=== PATIENT | male | born 1950 | race Caucasian/White ===

== ENCOUNTER 2017-06-09 18:23 | Emergency (ER) | payer OTHER ==
--- OUTSIDE RECORDS SUMMARY | 2017-06-09 18:25 | XMS REPORT | Clinical Summary ---
:1950 Demographics Address [address] [place] [address] Home Phone Mobile Phone Preferred Language Irish Marital Status Unknown Pentecostal Affiliation Unknown Race White Ethnic Group Not or Author Organization [facility] Address [address] [place] [address] Phone Support Name Relationship Address Phone Mami Pena [address] [place] [address] Unavailable Naturalson 11 [address] [place] [address] Care Team Providers Name Role Phone Unavailable Primary Care Provider Unavailable Allergies No Known Allergies Current Medications Prescription Sig. Disp. Refills Start End Status Date Date albuterol (PROVENTIL) Take 2.5 mg by Active 2.5 mg/0.5 mL Nebu nebulization 4 nebulizer solution (four) times daily. aspirin 325 MG tablet Take 325 mg by Active mouth daily. ipratropium (ATROVENT) Take 500 mcg by Active 0.02 % nebulizer nebulization solution every 6 (six) hours. metoprolol (LOPRESSOR) Take 25 mg by Active 25 MG tablet mouth 2 (two) times daily. omeprazole (PRILOSEC) 20 Take 20 mg by Active MG capsule mouth daily. clopidogrel (PLAVIX) 75 Take 75 mg by Active mg tablet mouth daily. budesonide-formoterol Inhale 2 puffs Active (SYMBICORT) 160-4.5 by mouth via mcg/actuation inhaler inhaler 2 (two) times daily. acetaminophen-codeine Take 1 tablet by Active (TYLENOL #3) 300-30 mg mouth every 4 per tablet (four) hours as needed for Pain. metoprolol (LOPRESSOR) Take 25 mg by Active 25 MG tabletIndications: mouth 2 (two) hypertension times daily. pantoprazole (PROTONIX) Take 40 mg by Active 40 MG tabletIndications: mouth daily. gastroesophageal reflux disease aspirin 81 MG EC Take 81 mg by Active tabletIndications: mouth daily. myocardial infarction prevention clopidogrel (PLAVIX) 75 Take 75 mg by Active mg tabletIndications: mouth daily. since pacemaker 5 years ago atorvastatin (LIPITOR) Take 1 tablet 90 tablet 0 03/14/19 Active 80 MG tablet (80 mg total) by 18 019 mouth nightly. atorvastatin (LIPITOR) Take 1 tablet 30 tablet 0 01/14/20 40 MG tablet (40 mg total) by 16 017 mouth nightly. atorvastatin (LIPITOR) Take 40 mg by Discontinued 40 MG tabletIndications: mouth daily. 018 hypercholesterolemia cephalexin (KEFLEX) 500 Take 500 mg by Discontinued MG capsuleIndications: mouth 3 (three) 018 left lung pneumonia times daily. codeine-guaifenesin Take 5 mLs by Discontinued (GUAIFENESIN AC) 10-100 mouth every 4 018 mg/5 mL (four) hours as liquidIndications: needed for Cough, left pneumonia Cough. Active Problems Problem Noted Date Essential hypertension 03/12/2017 Received tissue plasminogen activator (t-PA) less than 24 hours prior to 03/12 arrival Acute ischemic stroke ([facility]) 03/11/2017 HLD (hyperlipidemia) 01/17/2016 Peripheral vascular disease ([facility]) 01/14/2016 Postoperative anemia 01/14/2016 Coronary artery disease involving capitan grande band coronary artery 01/10/2016 PAD (peripheral artery disease) ([facility]) 01/10/2016 HTN (hypertension) 01/10/2016 Iliac artery stenosis, bilateral ([facility]) 01/10/2016 Unstable angina ([facility]) 01/10/2016 COPD (chronic obstructive pulmonary disease) ([facility]) 01/10/2016 Tobacco abuse 01/10/2016 ACS (acute coronary syndrome) ([facility]) 01/10/2016 Encounters Date Type Specialty Care Team Description 03/11/2017 - Hospital Encounter General Internal Corbin Garcia Acute ischemic 03/14/2017 Medicine MD Doug stroke Stephanie Lugo ([facility]);Received MD Addie tissue plasminogen activator (t-PA) less than 24 hours prior to arrival;Essential hypertension;Periph eral vascular disease ([facility]);Tobacco abuse;Tobacco abuse counseling after 06/08/2016 Social History Tobacco Use Types Packs/Day Years Used Date Current Every Day Smoker Cigarettes 0.5 50 Smokeless Tobacco: Never Used Tobacco Cessation: Ready to Quit: No; Counseling Given: No Comments: 5-6 cigarettes a day Alcohol Use Drinks/Week oz/Week Comments No Sex Assigned at Date Recorded Not on file Last Filed Vital Signs Vital Sign Reading Time Taken Blood Pressure 119/65 03/14/2017 7:15 AM [employer]CHOOL LUNCH MANAGER Pulse 60 03/14/2017 7:15 AM SCHOOL LUNCH MANAGER Temperature 35.8 C (96.4 F) 03/14/2017 7:15 AM SCHOOL LUNCH MANAGER Respiratory Rate 17 03/14/2017 7:15 AM SCHOOL LUNCH MANAGER Oxygen Saturation 96% 03/14/2017 7:15 AM SCHOOL LUNCH MANAGER Inhaled Oxygen Concentration - - Weight 70.4 kg (155 lb 3.3 oz) 03/11/2017 11:00 PM SCHOOL LUNCH MANAGER Height 172.7 cm (5' 8") 03/11/2017 11:00 PM SCHOOL LUNCH MANAGER Body Mass Index 23.6 03/11/2017 11:00 PM SCHOOL LUNCH MANAGER Plan of Treatment Health Maintenance Due Date Last Done Comments INFLUENZA VACCINE 12/06/2016 Implants Implanted Type Area Produce Department Manager Device Expiration Model / Identifier Date Serial / Lot Grft Eptfe-Heparin Rng [id number] - [id number]/Pa N/A: MARIELENA PRESCOTT & 09/01/2019 [id number] / Implanted: Qty: 1 on 01/13/2016 by Oniel Smith MD [facility] Arterial ASSC: MED [facility] [id number] / Results ARRYTHMIA IMPLANT REPORT - SCAN (03/16/2017 11:41 AM)RHYTHM STRIP - SCAN (2017 11:41 AM)Only the most recent of3 resultswithin the time period is included.PERMANENT LAB REPORT - SCAN (03/15/2017 11:00 AM)CARDIAC CATH REPORT - SCAN (03/15/2017 11:00 AM)VASCULAR DIAGRAM -SCAN (03/15/2017 11:00 AM)Only the most recent of2 resultswithin the time period is included.CBC with platelet count + automated diff (03/14/2017 4:53 AM)Only the most recent of4 resultswithin the time period is included. Component Value Ref Range WBC 5.9 3.5 - 10.5 K/L RBC 4.25 (L) 4.63 - 6.08 M/L Hemoglobin 12.3 (L) 13.7 - 17.5 GM/DL Hematocrit 37.8 (L) 40.1 - 51.0 % MCV 88.9 79.0 - 92.2 fL MCH 28.9 25.7 - 32.2 pg MCHC 32.5 32.3 - 36.5 GM/DL RDW 15.9 (H) 11.6 - 14.4 % Platelets 173 150 - 450 K/CU MM MPV 11.5 9.4 - 12.4 fL nRBC 0 0 - 0 /100 WBC % Neutros 48 % % Lymphs 34 % % Monos 12 % % Eos 4 % % Baso 2 % # Neutros 2.85 1.78 - 5.38 K/L # Lymphs 2.02 1.32 - 3.57 K/L # Monos 0.68 0.30 - 0.82 K/L # Eos 0.25 0.04 - 0.54 K/L # Baso 0.09 (H) 0.01 - 0.08 K/L Immature Granulocytes-Relative 1 0 - 1 % Specimen Performing Laboratory Blood [address] [address] CBC with platelet count + automated diff (03/14/2017 4:53 AM)Only the most recent of4 resultswithin the time period is included. Specimen Performing Laboratory Blood Narrative The following orders were created for panel order CBC with platelet count + automated diff. Procedure Abnormality Status --------- ------ CBC with platelet count ...[[id number]]AbnormalFinal result Please view results for these tests on the individual orders. Basic Metabolic Panel (03/14/2017 4:53 AM)Only the most recent of3 resultswithin the time period is included. Component Value Ref Range Sodium 136 136 - 145 meq/L Potassium 4.0 3.5 - 5.1 meq/L Chloride 106 98 - 107 meq/L CO2 23 22 - 29 meq/L BUN 15 7 - 21 mg/dL Creatinine 0.92 0.57 - 1.25 mg/dL Glucose 92 70 - 105 mg/dL Calcium 8.7 8.4 - 10.2 mg/dL EGFR 82Comment: ESTIMATED GFR IS NOT ACCURATE mL/min/1.73 sq m CREATININE CLEARANCE IN PREDICTING GLOMERULAR FILTRATION RATE. ESTIMATED GFR IS NOT APPLICABLE FOR DIALYSIS PATIENTS. Specimen Performing Laboratory Blood [facility] [address] [address] ECHOCARDIOGRAM REPORT - SCAN (03/12/2017 4:57 PM)CT brain without IV contrast ( 03/12/2017 3:29 PM) Specimen Performing Laboratory GE RIS Narrative FINAL REPORT CT head without contrast 03/12/2017 3:29 PM CLINICAL HISTORY: Stroke TECHNIQUE: Axial noncontrast CT images through the head were obtained. This examination was performed according to our departmental dose optimization program, which includes automated exposure control, adjustment of the mA and/or kV according to patient size, and/or use of iterated reconstruction technique. COMPARISON: None available FINDINGS: There is no hemorrhage, extra-axial collection, mass, hydrocephalus, or midline shift. There is a tiny infarct in the left caudate nucleus, with rare microvascular ischemia in the supratentorial white matter. There is atherosclerotic calcification of the intracranial arterial vasculature. There is generalized parenchymal volume loss. The visualized paranasal sinuses and mastoid air cells are well aerated. There are postsurgical changes in the left nasal bone and maxilla. The skull is otherwise intact. IMPRESSION: No intracranial hemorrhage or mass effect. Age-indeterminate left caudate nucleus infarct. Signed: Wilbert Paez MD Report Verified Date/Time:03/12/2017 15:31:17 Reading Location: [address] Neuro Reading Room Procedure Note Interface, External Ris In - 03/12/2017 3:33 PM SCHOOL LUNCH MANAGER FINAL REPORT CT head without contrast 03/12/2017 3:29 PM CLINICAL HISTORY: Stroke TECHNIQUE: Axial noncontrast CT images through the head were obtained. This examination was performed according to our departmental dose optimization program, which includes automated exposure control, adjustment of the mA and/or kV according to patient size, and/or use of iterated reconstruction technique. COMPARISON: None available FINDINGS: There is no hemorrhage, extra-axial collection, mass, hydrocephalus, or midline shift. There is a tiny infarct in the left caudate nucleus, with rare microvascular ischemia in the supratentorial white matter. There is atherosclerotic calcification of the intracranial arterial vasculature. There is generalized parenchymal volume loss. The visualized paranasal sinuses and mastoid air cells are well aerated. There are postsurgical changes in the left nasal bone and maxilla. The skull is otherwise intact. IMPRESSION: No intracranial hemorrhage or mass effect. Age-indeterminate left caudate nucleus infarct. Signed: Wilbert Paez MD Report Verified Date/Time: 03/12/2017 15:31:17 Reading Location: [facility] [id number] Neuro Reading Room Troponin I (03/12/2017 2:28 PM)Only the most recent of3 resultswithin the time period is included. Component Value Ref Range Troponin I 0.02 0.00 - 0.03 ng/mL Specimen Performing Laboratory Blood - Arm, [place] [address] Narrative Troponin I (TnI) levels must be interpreted in the context of the presenting symptoms and the clinical findings. Elevated TnI levels indicate myocardial damage, but are not specific for ischemic heart disease. Elevated TnI levels are seen in patients with other cardiac conditions (including myocarditis and congestive heart failure), and slight TnI elevations occur in patients with other conditions, including sepsis, renal failure, acidosis, acute neurological disease, and persistent tachyarrhythmia. ECG 12 lead (03/12/2017 2:16 PM) Specimen Performing Laboratory [place] MUSE Narrative Ventricular Rate 60 BPM Atrial Rate 60 BPM P-R Interval 138 ms QRS Duration 74 ms Q-T Interval 414 ms QTC Calculation(Bazett) 414 ms P Independence -18 degrees R Independence 9 degrees T Independence 68 degrees Electronic atrial pacemaker ST abnormality, possible digitalis effect Abnormal ECG No previous ECGs available Confirmed by Jasmeet HAIDER MICHAEL ([id number]) on 03/13/2017 9:39:18 AM Procedure Note Interface, External Ris In - 03/13/2017 9:39 AM SCHOOL LUNCH MANAGER Ventricular Rate 60 BPM Atrial Rate 60 BPM P-R Interval 138 ms QRS Duration 74 ms Q-T Interval 414 ms QTC Calculation(Bazett) 414 ms P Independence -18 degrees R Independence 9 degrees T Independence 68 degrees Electronic atrial pacemaker ST abnormality, possible digitalis effect Abnormal ECG No previous ECGs available Confirmed by Jasmeet HAIDER MICHAEL ([id number]) on 03/13/2017 9:39:18 AM 2D Echo W/Doppler(CW/PW/Color) (03/12/2017 10:53 AM) Component Value Ref Range Ejection Fraction Specimen Performing Laboratory [facility] ECHO HEART[facility] DENISE CPACS Narrative Transthoracic Echocardiography Report (TTE) Demographics Patient Name Tyron PENA of Study 03/12/2017 [id number] GenderMale Visit Number [id number] Chuck [id number] Number [id number] Number Date of Birth1950 Referring Physician Corbin Garcia Age67 year(s) [employer] Kristopher Muniz MD Physician Fellow CHLOE Melton Procedure Type of Study TTE procedure:2DECHO W DOPPLER(CW/PW/COLOR) Indications:Stroke . Clinical History COPD,CVA,DEMENTIA,ENLARGED PROSTATE,HERNIA CEREBRI,HTN,AZ,SMOKING Height: 68 inches Weight: 70.31 kg (155 lbs) BSA: 1.83 m^2 BMI: 23.57 kg/m^2 HR: 60 bpm BP: 120/60 mmHg Summary 1. Normal LV size and function. LVEF is > 60%. 2. Diastology: Grade 1 diastolic dysfunction noted. 3. Normal RV size and function 4. No significant valvular heart disease 5. Mild TR 6. No pericardial effusion is seen. Previous Study No previous study available for comparison. Signature Findings Left Ventricle LV endocardium is adequately visualized with IV ultrasound enhancing agent. Global LV systolic function normal . LVEF by Shukla's method of disk assessment is normal (>60%) . Grade 1 diastolic dysfunction. All of the LV segments contract normally . No evidence of LV hypertrophy. The left ventricle is chamber size (by vol index) is normal (male - LVED vol - 34-74ml/m2). Left AtriumLA size is normal . Right VentricleThe right ventricular chamber size and systolic function are within normal limits. Right Atrium RA size is probably normal based on available views. RA pacing wire is visualized . Atrial SeptumIV saline contrast injection was negative for a PFO (patent foramen ovale) at rest and post Valsalva . Aortic Valve Mild AoV cusp thickening. There is no aortic stenosis. There is no aortic regurgitation. Mitral Valve Mild MV leaflet thickening. Trace mitral regurgitation. Tricuspid ValveTV structure is normal. Mild tricuspid regurgitation. Pulmonic Valve PV is not well visualized; function appears normal by Doppler visualized. AortaAortic root size (SInus of Valsalva diameter) is normal . PericardiumNo significant pericardial effusion is visualized. IVC/SVC/PA/PV/PleuralThe inferior vena cava size is normal . The estimated RA pressure by IVC dynamics 0-5mmHg . Chambers/Structures Left Atrium LA Volume: 33.93 ml LA Vol. Index: 19 ml/m^2 Left Ventricle LVIDd: 4.05 cm LV Septum Diastolic: 0.92 cm LV PW Diastolic: 1.08 cm LVEDV Shukla's:73.79 ml LVESV Shukla's:27.15 ml LVEF Shukla's: 63.8 %LVEDVI: 40 ml/m^2 LVESVI: 15 ml/m^2 LVOT Diameter: 1.79 cm Doppler/Quantitative Measurements Mitral Valve MV Peak E-Wave: 0.64 m/s MV Peak A-Wave: 0.77 m/s E/A Ratio: 0.83 Peak Gradient: 1.64 mmHg Decelerat ion Time: 168.1 msec MV Riccardo. Peak: Tissue Doppler E' Septal Velocity: 0.07 m/s E/E': 6.47 E' Lateral Velocity: 0.1 m/s Aortic Valve Peak Velocity: 1.46 m/s Mean Velocity: 0.97 m/s Peak Gradient: 8.55 mmHgMean Gradient: 4.3 mmHg AV Area (continuity): 2.08 cm^2 AV VTI: 27.69 cm AV DVI: 0.83 LVOT Peak Velocity: 1.32 m/s Peak Gradient: 6.95 mmHg Mean Velocity: 0.7 m/sMean Gradient: 2.48 mmHg LVOT Diameter: 1.79 cmLVOT VTI: 22.9 cm LVOT Area: 2.52 cm^2LVOT SV:57.6 ml LVOT CO: 3.46 l/min LVOT CI: 1.89 l/min/m^2 Tricuspid Valve TV Mean Gradient: 22.61 mmHg TR Mean Velocity: 2.27 m/s Procedure Note Interface, External Ris In - 03/12/2017 4:15 PM SCHOOL LUNCH MANAGER Transthoracic Echocardiography Report (TTE) Demographics Patient Name MAMI PENA Date of Study 03/12/2017 Gender Male Visit Number [id number] Race Room Number [id number] Number Date of 1950 Referring Physician Corbin Garcia Age 67 year(s) [employer] Kristopher Engle Interpreting Prosper Muniz MD Physician Fellow CHLOE Melton Procedure Type of Study TTE procedure:2DECHO W DOPPLER(CW/PW/COLOR) Indications:Stroke . Clinical History COPD,CVA,DEMENTIA,ENLARGED PROSTATE,HERNIA CEREBRI,HTN,AZ,SMOKING Height: 68 inches Weight: 70.31 kg (155 lbs) BSA: 1.83 m^2 BMI: 23.57 kg/m^2 HR: 60 bpm BP: 120/60 mmHg Summary 1. Normal LV size and function. LVEF is > 60%. 2. Diastology: Grade 1 diastolic dysfunction noted. 3. Normal RV size and function 4. No significant valvular heart disease 5. Mild TR 6. No pericardial effusion is seen. Previous Study No previous study available for comparison. Signature Findings Left Ventricle LV endocardium is adequately visualized with IV ultrasound enhancing agent. Global LV systolic function normal . LVEF by Shukla's method of disk assessment is normal (>60%) . Grade 1 diastolic dysfunction. All of the LV segments contract normally . No evidence of LV hypertrophy. The left ventricle is chamber size (by vol index) is normal (male - LVED vol - 34-74ml/m2). Left Atrium LA size is normal . Right Ventricle The right ventricular chamber size and systolic function are within normal limits. Right Atrium RA size is probably normal based on available views. RA pacing wire is visualized . Atrial Septum IV saline contrast injection was negative for a PFO (patent foramen ovale) at rest and post Valsalva . Aortic Valve Mild AoV cusp thickening. There is no aortic stenosis. There is no aortic regurgitation. Mitral Valve Mild MV leaflet thickening. Trace mitral regurgitation. Tricuspid Valve TV structure is normal. Mild tricuspid regurgitation. Pulmonic Valve PV is not well visualized; function appears normal by Doppler visualized. Aorta Aortic root size (SInus of Valsalva diameter) is normal . Pericardium No significant pericardial effusion is visualized. IVC/SVC/PA/PV/Pleural The inferior vena cava size is normal . The estimated RA pressure by IVC dynamics 0-5mmHg . Chambers/Structures Left Atrium LA Volume: 33.93 ml LA Vol. Index: 19 ml/m^2 Left Ventricle LVIDd: 4.05 cm LV Septum Diastolic: 0.92 cm LV PW Diastolic: 1.08 cm LVEDV Shukla's:73.79 ml LVESV Shukla's:27.15 ml LVEF Shukla's: 63.8 % LVEDVI: 40 ml/m^2 LVESVI: 15 ml/m^2 LVOT Diameter: 1.79 cm Doppler/Quantitative Measurements Mitral Valve MV Peak E-Wave: 0.64 m/s MV Peak A-Wave: 0.77 m/s E/A Ratio: 0.83 Peak Gradient: 1.64 mmHg Deceleration Time: 168.1 msec MV Riccardo. Peak: Tissue Doppler E' Septal Velocity: 0.07 m/s E/E': 6.47 E' Lateral Velocity: 0.1 m/s Aortic Valve Peak Velocity: 1.46 m/s Mean Velocity: 0.97 m/s Peak Gradient: 8.55 mmHg Mean Gradient: 4.3 mmHg AV Area (continuity): 2.08 cm^2 AV VTI: 27.69 cm AV DVI: 0.83 LVOT Peak Velocity: 1.32 m/s Peak Gradient: 6.95 mmHg Mean Velocity: 0.7 m/s Mean Gradient: 2.48 mmHg LVOT Diameter: 1.79 cm LVOT VTI: 22.9 cm LVOT Area: 2.52 cm^2 LVOT SV:57.6 ml LVOT CO: 3.46 l/min LVOT CI: 1.89 l/min/m^2 Tricuspid Valve TV Mean Gradient: 22.61 mmHg TR Mean Velocity: 2.27 m/s XR chest 1 view portable / bedside (03/12/2017 9:28 AM) Specimen Performing Laboratory GE RIS Narrative FINAL REPORT Two frontal chest images Discussion: No specific evidence of focal infiltrate or consolidation. Heart size normal. Left chest pacemaker in place. No effusion or pneumothorax. There is however increased density of both lung apices right greater than left, and questionable abnormal density at the lateral right midlung region. These areas are suboptimally depicted with frontal view plain film. Consider follow-up PA and lateral chest imaging. Signed: Acacia Benites MD Report Verified Date/Time:03/12/2017 10:06:57 Reading Location: [facility] Radiology Reading Room Procedure Note Interface, External Ris In - 03/12/2017 10:09 AM SCHOOL LUNCH MANAGER FINAL REPORT Two frontal chest images Discussion: No specific evidence of focal infiltrate or consolidation. Heart size normal. Left chest pacemaker in place. No effusion or pneumothorax. There is however increased density of both lung apices right greater than left, and questionable abnormal density at the lateral right midlung region. These areas are suboptimally depicted with frontal view plain film. Consider follow-up PA and lateral chest imaging. Signed: Acacia Benites MD Report Verified Date/Time: 03/12/2017 10:06:57 Reading Location: [facility] Radiology Reading Room PHERAL VASCULAR REPORT - SCAN (03/12/2017 8:20 AM)Homocysteine - Fasting ( 03/12/2017 8:13 AM) Component Value Ref Range Homocysteine 11.8 5.1 - 15.4 umol/L Specimen Performing Laboratory Blood - [place], [address] [address] Narrative Fasting Hemoglobin A1c - Fasting (03/12/2017 8:13 AM) Component Value Ref Range Hemoglobin A1C 5.6 4.3 - 6.1 % Specimen Performing Laboratory Blood - [place], [address] [address] Narrative Fasting Creatine Kinase (CK), Total and MB (03/12/2017 8:13 AM)Only the most recent of2 resultswithin the time period is included. Component Value Ref Range Total CK 59 29 - 200 U/L CK-MB 1.0 0.0 - 6.6 ng/mL MB Relative Index 1.7 % Specimen Performing Laboratory Blood - [place], [address] [address] Narrative CK-MB Reference Range: <6.7Normal 6.7-10.0Borderline >10.0 Abnormal Fasting Fasting Fasting lipid panel (03/12/2017 8:13 AM) Component Value Ref Range Triglycerides 151 mg/dL Cholesterol 147 mg/dL HDL 29 mg/dL LDL Calculated 88 mg/dL Specimen Performing Laboratory Blood - [place], [address] [address] Narrative Triglyceride Reference Range: Low Risk <150 [id number] High Risk 200-499 Very High Risk>=500 Cholesterol Reference Range: Low Risk <200 [id number] High Risk>240 HDL Cholesterol Reference Range: Low Risk >=60 High Risk <40 LDL Cholesterol Reference Range: Optimal<100 Near [id number] Grghdxravh679-110 Qecz642-415 Very High >=190 Fasting Carotid doppler bilateral (03/12/2017 6:19 AM) Component Value Ref Range Ejection Fraction Specimen Performing Laboratory [facility] Impressions Right Impression 1. There is <50% diameter reduction (approximately 35% by 2-D measurement) in the internal carotid artery with a peak velocity of 116/34 cm/sec and heterogeneous plaque. 2. There is >50% stenosis in the external carotid artery with a velocity of 237/48cm/sec. 3. The common carotid artery is within normal limits. 4. The vertebral artery flow is antegrade . Left Impression 1. There is <50% diameter reduction (approximately 28% by 2-D measurement) in the internal carotid artery with a peak velocity of 115/27 cm/sec and heterogeneous plaque. 2. There is >50% stenosis in the external carotid artery with a velocity of 430/62cm/sec. 3. There is non occluding plaque in the common carotid artery. 4. The vertebral artery flow is antegrade . Conclusions Signature Velocities are measured in cm/s ; Diameters are measured in cm Carotid Right Measurements +---------+----+----+-----+ + + + !Location !PSV !EDV !Angle!%Stenosis 2D !%Stenosis Doppler !Tortuosity ! +---------+----+----+-----+ + + + !Prox CCA !95!21.1!60 ! !! ! +---------+----+----+-----+ + + + !Dist CCA !76.2!20.5!60 ! !! ! +---------+----+----+-----+ + + + !Prox ICA !116 !34.4!60 !35%!<50%! ! +---------+----+----+-----+ + + + !Dist ICA !87.4!29.5!60 ! !! ! +---------+----+----+-----+ + + + !Prox ECA !237 !48.7!60 ! !! ! +---------+----+----+-----+ + + + !Vertebral!54!24.6!60 ! !! ! +---------+----+----+-----+ + + + - There is antegrade vertebral flow noted on the right side. - Additional Measurements:ICAPSV/CCAPSV 1.52.ICAEDV/CCAEDV 1.63. Carotid Left Measurements +---------+----+----+-----+ + + + !Location !PSV !EDV !Angle!%Stenosis 2D !%Stenosis Doppler !Tortuosity ! +---------+----+----+-----+ + + + !Prox CCA !128 !39.3!60 ! !! ! +---------+----+----+-----+ + + + !Dist CCA !85.4!25.5!60 ! !! ! +---------+----+----+-----+ + + + !Prox ICA !115 !27.5!60 !28%!<50%! ! +---------+----+----+-----+ + + + !Dist ICA !97.2!31.4!60 ! !! ! +---------+----+----+-----+ + + + !Prox ECA !430 !62.9!60 ! !! ! +---------+----+----+-----+ + + + !Vertebral!84.5!27.5!60 ! !! ! +---------+----+----+-----+ + + + - There is antegrade vertebral flow noted on the left side. - Additional Measurements:ICAPSV/CCAPSV 1.35.ICAEDV/CCAEDV 0.8. Narrative [facility] - Carotid Duplex Study Demographics Patient Name JEAN,Date of Study2017 RADHA [id number] Age67 Visit Number [id number] Gender Male Accession Number [id number] Date of Birth1950 [facility] Room [id number] Physician Bella PlazaInterpreting Elaine Higginbotham MD, VI Procedure Type of Study: Cerebral: Carotid, CAROTID DOPPLER, BILATERAL. Indications for Study:Stroke. Blood Pressure:Right arm 116/68 mmHg.Left arm 123/73 mmHg. Patient Status:Routine. Study Location:Portable. Technical Quality:Adequate visualization. Risk Factors History of Disease + + +--------+ !Diagnosis !Date!Comments! + + +--------+ !History/Risk Factors: !03/12/2017!Stroke! + + +--------+ Procedure Note Interface, External Ris In - 03/12/2017 7:32 AM [employer] [facility] - Carotid Duplex Study Demographics Patient Name JEAN, Date of Study 03/12/2017 RADHA Age 67 Visit Number [id number] Gender Male Accession Number [id number] Date of 1950 [facility] Room Number 7518 Physician [facility] [place] Interpreting Cristobal Perez [place] Physician , RPTUNG Procedure Type of Study: Cerebral: Carotid, CAROTID DOPPLER, BILATERAL. Indications for Study:Stroke. Blood Pressure:Right arm 116/68 mmHg.Left arm 123/73 mmHg. Patient Status:Routine. Study Location:Portable. Technical Quality:Adequate visualization. Risk Factors History of Disease + + +--------+ !Diagnosis !Date !Comments! + + +--------+ !History/Risk Factors: !03/12/2017!Stroke ! + + +--------+ Impressions Right Impression 1. There is <50% diameter reduction (approximately 35% by 2-D measurement) in the internal carotid artery with a peak velocity of 116/34 cm/sec and heterogeneous plaque. 2. There is >50% stenosis in the external carotid artery with a velocity of 237/48cm/sec. 3. The common carotid artery is within normal limits. 4. The vertebral artery flow is antegrade . Left Impression 1. There is <50% diameter reduction (approximately 28% by 2-D measurement) in the internal carotid artery with a peak velocity of 115/27 cm/sec and heterogeneous plaque. 2. There is >50% stenosis in the external carotid artery with a velocity of 430/62cm/sec. 3. There is non occluding plaque in the common carotid artery. 4. The vertebral artery flow is antegrade . Conclusions Signature Velocities are measured in cm/s ; Diameters are measured in cm Carotid Right Measurements +---------+----+----+-----+ + + + !Location !PSV !EDV !Angle!%Stenosis 2D !%Stenosis Doppler !Tortuosity ! +---------+----+----+-----+ + + + !Prox CCA !95 !21.1!60 ! ! ! ! +---------+----+----+-----+ + + + !Dist CCA !76.2!20.5!60 ! ! ! ! +---------+----+----+-----+ + + + !Prox ICA !116 !34.4!60 !35% !<50% ! ! +---------+----+----+-----+ + + + !Dist ICA !87.4!29.5!60 ! ! ! ! +---------+----+----+-----+ + + + !Prox ECA !237 !48.7!60 ! ! ! ! +---------+----+----+-----+ + + + !Vertebral!54 !24.6!60 ! ! ! ! +---------+----+----+-----+ + + + - There is antegrade vertebral flow noted on the right side. - Additional Measurements:ICAPSV/CCAPSV 1.52.ICAEDV/CCAEDV 1.63. Carotid Left Measurements +---------+----+----+-----+ + + + !Location !PSV !EDV !Angle!%Stenosis 2D !%Stenosis Doppler !Tortuosity ! +---------+----+----+-----+ + + + !Prox CCA !128 !39.3!60 ! ! ! ! +---------+----+----+-----+ + + + !Dist CCA !85.4!25.5!60 ! ! ! ! +---------+----+----+-----+ + + + !Prox ICA !115 !27.5!60 !28% !<50% ! ! +---------+----+----+-----+ + + + !Dist ICA !97.2!31.4!60 ! ! ! ! +---------+----+----+-----+ + + + !Prox ECA !430 !62.9!60 ! ! ! ! +---------+----+----+-----+ + + + !Vertebral!84.5!27.5!60 ! ! ! ! +---------+----+----+-----+ + + + - There is antegrade vertebral flow noted on the left side. - Additional Measurements:ICAPSV/CCAPSV 1.35.ICAEDV/CCAEDV 0.8. Vitamin B12 and Folate (03/11/2017 11:41 PM) Component Value Ref Range Vitamin B12 1008 (H) 213 - 816 pg/mL Folate 8.4 >=7.0 ng/mL Specimen Performing Laboratory Blood - Arm, [address] [address] TSH/Free T4 If Indicated (03/11/2017 11:41 PM) Component Value Ref Range TSH 2.01 0.35 - 4.94 uIU/mL Specimen Performing Laboratory Blood - Arm, [address] [address] Prothrombin time/INR (03/11/2017 11:41 PM) Component Value Ref Range Protime 17.2 (H) 11.7 - 14.7 seconds INR 1.4 <=5.9 Specimen Performing Laboratory Blood - Arm, [address] [address] Narrative RECOMMENDED COUMADIN/WARFARIN INR THERAPY RANGES STANDARD DOSE: 2.0 - 3.0 Includes: PROPHYLAXIS for venous thrombosis, systemic embolization; TREATMENT for venous thrombosis and/or pulmonary embolus. HIGH RISK: Target INR is 2.5-3.5 for patients with mechanical heart valves. after 06/08/2016
--- OUTSIDE RECORDS SUMMARY | 2017-06-09 18:26 | XMS REPORT ---
:1950 Demographics Address [address] [place] [address] Preferred Language Unknown Marital Status Unknown Jainism Affiliation Unknown Race Unknown Additional Race(s) Unavailable Ethnic Group Unknown [facility] Address [address] [place] [address] [place] [id number] Care Team Providers Name Role Phone GENO STERLING Unavailable Unavailable Problems This patient has no known problems. Allergies, Adverse Reactions, Alerts This patient has no known allergies or adverse reactions. Medications This patient has no known medications. Results Test Description Test Time Test Comments Text Results Atomic Results Result Comments BASIC METABOLIC PANEL 2017-03-14 07:51:00 Test Item Value Reference Range Comments SODIUM (BEAKER) (test 136 meq/L 136-145 yajp=908) POTASSIUM (BEAKER) (test 4.0 meq/L 3.5-5.1 rcri=448) CHLORIDE (BEAKER) (test 106 meq/L 98-107 ymtb=515) CO2 (BEAKER) (test ruzj=269) 23 meq/L 22-29 BLOOD UREA NITROGEN (BEAKER) 15 mg/dL 7-21 (test yrvx=976) CREATININE (BEAKER) (test 0.92 mg/dL 0.57-1.25 orqv=845) GLUCOSE RANDOM (BEAKER) 92 mg/dL 70-105 (test yxwr=935) CALCIUM (BEAKER) (test 8.7 mg/dL 8.4-10.2 mfho=736) EGFR (BEAKER) (test 82 mL/min/1.73 sq m ESTIMATED GFR IS NOT moat=0391) ACCURATE CREATININE CLEARANCE IN PREDICTING GLOMERULAR FILTRATION RATE. ESTIMATED GFR IS NOT APPLICABLE FOR DIALYSIS PATIENTS. CBC W/PLT COUNT & AUTO [id number] 05:55:00 Test Item Value Reference Range Comments WHITE BLOOD CELL COUNT (BEAKER) (test ylzg=593) 5.9 K/ L 3.5-10.5 RED BLOOD CELL COUNT (BEAKER) (test thjc=674) 4.25 M/ L 4.63-6.08 HEMOGLOBIN (BEAKER) (test pvfd=820) 12.3 GM/DL 13.7-17.5 HEMATOCRIT (BEAKER) (test vdzp=812) 37.8 % 40.1-51.0 MEAN CORPUSCULAR VOLUME (BEAKER) (test gzfe=884) 88.9 fL 79.0-92.2 MEAN CORPUSCULAR HEMOGLOBIN (BEAKER) (test 28.9 pg 25.7-32.2 xgrf=847) MEAN CORPUSCULAR HEMOGLOBIN CONC (BEAKER) (test 32.5 GM/DL 32.3-36.5 yhss=827) RED CELL DISTRIBUTION WIDTH (BEAKER) (test 15.9 % 11.6-14.4 nkix=238) PLATELET COUNT (BEAKER) (test ahbu=048) 173 K/CU MM 150-450 MEAN PLATELET VOLUME (BEAKER) (test rqib=907) 11.5 fL 9.4-12.4 NUCLEATED RED BLOOD CELLS (BEAKER) (test 0 /100 WBC 0-0 xvfo=060) NEUTROPHILS RELATIVE PERCENT (BEAKER) (test 48 % auuv=830) LYMPHOCYTES RELATIVE PERCENT (BEAKER) (test 34 % cdho=464) MONOCYTES RELATIVE PERCENT (BEAKER) (test 12 % wajr=486) EOSINOPHILS RELATIVE PERCENT (BEAKER) (test 4 % dllh=485) BASOPHILS RELATIVE PERCENT (BEAKER) (test 2 % utbw=436) NEUTROPHILS ABSOLUTE COUNT (BEAKER) (test 2.85 K/ L 1.78-5.38 cmqj=445) LYMPHOCYTES ABSOLUTE COUNT (BEAKER) (test 2.02 K/ L 1.32-3.57 lkrb=490) MONOCYTES ABSOLUTE COUNT (BEAKER) (test 0.68 K/ L 0.30-0.82 lyik=309) EOSINOPHILS ABSOLUTE COUNT (BEAKER) (test 0.25 K/ L 0.04-0.54 nekc=988) BASOPHILS ABSOLUTE COUNT (BEAKER) (test 0.09 K/ L 0.01-0.08 cjxw=893) IMMATURE GRANULOCYTES-RELATIVE PERCENT (BEAKER) 1 % 0-1 (test wnrz=2439) CBC W/PLT COUNT & AUTO [id number] 05:15:00 Test Item Value Reference Range Comments WHITE BLOOD CELL COUNT (BEAKER) (test ftpw=018) 5.4 K/ L 3.5-10.5 RED BLOOD CELL COUNT (BEAKER) (test lcjq=411) 4.34 M/ L 4.63-6.08 HEMOGLOBIN (BEAKER) (test vfdc=102) 12.5 GM/DL 13.7-17.5 HEMATOCRIT (BEAKER) (test ezmb=300) 39.0 % 40.1-51.0 MEAN CORPUSCULAR VOLUME (BEAKER) (test rnsa=960) 89.9 fL 79.0-92.2 MEAN CORPUSCULAR HEMOGLOBIN (BEAKER) (test 28.8 pg 25.7-32.2 dinu=703) MEAN CORPUSCULAR HEMOGLOBIN CONC (BEAKER) (test 32.1 GM/DL 32.3-36.5 txcz=382) RED CELL DISTRIBUTION WIDTH (BEAKER) (test 15.9 % 11.6-14.4 sujl=266) PLATELET COUNT (BEAKER) (test rlnl=400) 162 K/CU MM 150-450 MEAN PLATELET VOLUME (BEAKER) (test oqqe=598) 10.6 fL 9.4-12.4 NUCLEATED RED BLOOD CELLS (BEAKER) (test 0 /100 WBC 0-0 nujs=406) NEUTROPHILS RELATIVE PERCENT (BEAKER) (test 52 % qjyz=826) LYMPHOCYTES RELATIVE PERCENT (BEAKER) (test 31 % pgvc=012) MONOCYTES RELATIVE PERCENT (BEAKER) (test 11 % bjfa=698) EOSINOPHILS RELATIVE PERCENT (BEAKER) (test 4 % lopp=355) BASOPHILS RELATIVE PERCENT (BEAKER) (test 2 % jhwf=510) NEUTROPHILS ABSOLUTE COUNT (BEAKER) (test 2.78 K/ L 1.78-5.38 gzfw=040) LYMPHOCYTES ABSOLUTE COUNT (BEAKER) (test 1.69 K/ L 1.32-3.57 ixvx=376) MONOCYTES ABSOLUTE COUNT (BEAKER) (test 0.59 K/ L 0.30-0.82 iwor=431) EOSINOPHILS ABSOLUTE COUNT (BEAKER) (test 0.21 K/ L 0.04-0.54 nhiy=247) BASOPHILS ABSOLUTE COUNT (BEAKER) (test 0.09 K/ L 0.01-0.08 paom=945) IMMATURE GRANULOCYTES-RELATIVE PERCENT (BEAKER) 1 % 0-1 (test apsc=2169) CT, BRAIN, WITHOUT [id number] 15:31:00FINAL REPORT CT head without contrast 03/12/2017 3:29 [...] IMPRESSION: No intracranial hemorrhage or mass effect. Age- indeterminate left caudate nucleus infarct. Signed: Wilbert Paez Verified Date/Time: 03/12/2017 15:31:17 Reading Location: [address] Neuro Reading Room TROPONIN [id number] 15:26:00 Test Item Value Reference Range Comments TROPONIN I (KYARA) (test yqrq=758) 0.02 ng/mL 0.00-0.03 Troponin I (TnI) levels must be interpreted [...] failure, acidosis, acute neurological disease, and persistent tachyarrhythmia.HEMOGLOBIN [id number] 12:38:00 Test Item Value Reference Range Comments HEMOGLOBIN A1C (KYARA) (test ljja=312) 5.6 % 4.3-6.1 FastingRAD, CHEST, 1 VIEW, NON [id number] 10:06:00Reason for exam:->rule out pneumoniaShould this be performed at the bedside?->YesFINAL REPORT Two frontal chest images Discussion: No [...] and lateral chest imaging. Signed: Acacia Benites Verified Date/Time: 03/12/2017 10:06:57 Reading Location: [facility] Radiology Reading Room [id number] 09:08:00 Test Item Value Reference Range Comments HOMOCYSTEINE (BEAKER) (test bslx=200) 11.8 umol/L 5.1-15.4 FastingCREATINE KINASE (CK), TOTAL AND [id number] 08:55:00 Test Item Value Reference Range Comments CREATINE KINASE TOTAL (BEAKER) (test wtkp=276) 59 U/L 29-200 CREATINE KINASE-MB (BEAKER) (test lowi=438) 1.0 ng/mL 0.0-6.6 CREATINE KINASE-MB INDEX (BEAKER) (test tdpk=665) 1.7 % CK-MB Reference Range:<6.7 Normal6.7-10.0 Borderline>10.0 AbnormalFastingFastingTROPONIN [id number] 08:55:00 Test Item Value Reference Range Comments TROPONIN I (BEAKER) (test lzwd=992) < ng/mL 0.00-0.03 Troponin I (TnI) levels must be interpreted [...] failure, acidosis, acute neurological disease, and persistent tachyarrhythmia.FastingLIPID [id number] 08:48:00 Test Item Value Reference Range Comments TRIGLYCERIDES (BEAKER) (test wppk=828) 151 mg/dL CHOLESTEROL (BEAKER) (test gsav=570) 147 mg/dL HDL CHOLESTEROL (BEAKER) (test cgzu=876) 29 mg/dL LDL CHOLESTEROL CALCULATED (BEAKER) (test 88 mg/dL pxzk=372) Triglyceride Reference Range: Low Risk <150 Borderline 150- 199 High Risk 200-499 Very High Risk >=500Cholesterol Reference Range: Low Risk <200 Borderline 200-239 High Risk > 240HDL Cholesterol Reference Range: Low Risk >=60 High Risk <40LDL Cholesterol Reference Range: Optimal <100 Near Optimal 100-129 Borderline 130-159 High 160-189 Very High >=190 FastingBASIC METABOLIC [id number] 08:48:00 Test Item Value Reference Range Comments SODIUM (BEAKER) (test 136 meq/L 136-145 zbgs=638) POTASSIUM (BEAKER) (test 4.4 meq/L 3.5-5.1 svpt=541) CHLORIDE (BEAKER) (test 104 meq/L 98-107 xgbr=437) CO2 (BEAKER) (test 25 meq/L 22-29 blez=043) BLOOD UREA NITROGEN 15 mg/dL 7-21 (BEAKER) (test qkqo=119) CREATININE (BEAKER) (test 0.87 mg/dL 0.57-1.25 nnmo=448) GLUCOSE RANDOM (BEAKER) 102 mg/dL 70-105 (test ugrd=961) CALCIUM (BEAKER) (test 8.9 mg/dL 8.4-10.2 yavr=211) EGFR (BEAKER) (test 87 mL/min/1.73 sq m ESTIMATED GFR IS NOT iypt=4763) ACCURATE CREATININE CLEARANCE IN PREDICTING GLOMERULAR FILTRATION RATE. ESTIMATED GFR IS NOT APPLICABLE FOR DIALYSIS PATIENTS. FastingCBC W/PLT COUNT & AUTO [id number] 08:24:00 Test Item Value Reference Range Comments WHITE BLOOD CELL COUNT (BEAKER) (test kmjs=454) 5.7 K/ L 3.5-10.5 RED BLOOD CELL COUNT (BEAKER) (test jxwz=492) 4.23 M/ L 4.63-6.08 HEMOGLOBIN (BEAKER) (test fgdh=431) 12.3 GM/DL 13.7-17.5 HEMATOCRIT (BEAKER) (test vrjv=146) 37.9 % 40.1-51.0 MEAN CORPUSCULAR VOLUME (BEAKER) (test lgpc=561) 89.6 fL 79.0-92.2 MEAN CORPUSCULAR HEMOGLOBIN (BEAKER) (test 29.1 pg 25.7-32.2 ijha=722) MEAN CORPUSCULAR HEMOGLOBIN CONC (BEAKER) (test 32.5 GM/DL 32.3-36.5 rawe=456) RED CELL DISTRIBUTION WIDTH (BEAKER) (test 15.9 % 11.6-14.4 spwn=006) PLATELET COUNT (BEAKER) (test zcvl=980) 156 K/CU MM 150-450 MEAN PLATELET VOLUME (BEAKER) (test kdld=783) 10.2 fL 9.4-12.4 NUCLEATED RED BLOOD CELLS (BEAKER) (test 0 /100 WBC 0-0 klkh=919) NEUTROPHILS RELATIVE PERCENT (BEAKER) (test 47 % rveb=852) LYMPHOCYTES RELATIVE PERCENT (BEAKER) (test 37 % zbhz=578) MONOCYTES RELATIVE PERCENT (BEAKER) (test 12 % xxvo=630) EOSINOPHILS RELATIVE PERCENT (BEAKER) (test 3 % xxat=380) BASOPHILS RELATIVE PERCENT (BEAKER) (test 2 % geto=685) NEUTROPHILS ABSOLUTE COUNT (BEAKER) (test 2.66 K/ L 1.78-5.38 ipke=609) LYMPHOCYTES ABSOLUTE COUNT (BEAKER) (test 2.09 K/ L 1.32-3.57 hhvu=317) MONOCYTES ABSOLUTE COUNT (BEAKER) (test 0.70 K/ L 0.30-0.82 ejvb=532) EOSINOPHILS ABSOLUTE COUNT (BEAKER) (test 0.15 K/ L 0.04-0.54 nvwd=412) BASOPHILS ABSOLUTE COUNT (BEAKER) (test 0.09 K/ L 0.01-0.08 stpa=070) IMMATURE GRANULOCYTES-RELATIVE PERCENT (BEAKER) 1 % 0-1 (test raye=0960) TSH/FREE T4 IF [id number] 03:38:00 Test Item Value Reference Range Comments THYROID STIMULATING HORMONE (BEAKER) (test 2.01 uIU/mL 0.35-4.94 hwhs=297) VITAMIN B12 AND [id number] 03:38:00 Test Item Value Reference Range Comments VITAMIN B12 (BEAKER) (test ufuq=411) 1008 pg/mL 213-816 FOLATE (BEAKER) (test gumb=759) 8.4 ng/mL >=7.0 CREATINE KINASE (CK), TOTAL AND [id number] 01:03:00 Test Item Value Reference Range Comments CREATINE KINASE TOTAL (BEAKER) (test guwo=050) 66 U/L 29-200 CREATINE KINASE-MB (BEAKER) (test qkxr=142) 1.4 ng/mL 0.0-6.6 CREATINE KINASE-MB INDEX (BEAKER) (test nxsr=488) 2.1 % CK-MB Reference Range:<6.7 Normal6.7-10.0 Borderline>10.0 AbnormalTROPONIN [id number] 01:03:00 Test Item Value Reference Range Comments TROPONIN I (BEAKER) (test zomj=254) 0.02 ng/mL 0.00-0.03 Troponin I (TnI) levels must be interpreted [...] failure, acidosis, acute neurological disease, and persistent tachyarrhythmia.BASIC METABOLIC [id number] 00:56:00 Test Item Value Reference Range Comments SODIUM (BEAKER) (test 136 meq/L 136-145 ekvy=038) POTASSIUM (BEAKER) (test 3.9 meq/L 3.5-5.1 qmht=575) CHLORIDE (BEAKER) (test 104 meq/L 98-107 fxsb=897) CO2 (BEAKER) (test 24 meq/L 22-29 lgno=089) BLOOD UREA NITROGEN 14 mg/dL 7-21 (BEAKER) (test tbum=987) CREATININE (BEAKER) (test 0.87 mg/dL 0.57-1.25 amlp=254) GLUCOSE RANDOM (BEAKER) 104 mg/dL 70-105 (test gzyw=302) CALCIUM (BEAKER) (test 9.2 mg/dL 8.4-10.2 vizx=200) EGFR (BEAKER) (test 87 mL/min/1.73 sq m ESTIMATED GFR IS NOT bjpz=5004) ACCURATE CREATININE CLEARANCE IN PREDICTING GLOMERULAR FILTRATION RATE. ESTIMATED GFR IS NOT APPLICABLE FOR DIALYSIS PATIENTS. PROTHROMBIN TIME/[id number] 00:27:00 Test Item Value Reference Range Comments PROTIME (BEAKER) (test wpse=558) 17.2 seconds 11.7-14.7 INR (BEAKER) (test uqby=620) 1.4 <=5.9 RECOMMENDED COUMADIN/WARFARIN INR THERAPY RANGESSTANDARD DOSE: 2.0 - 3.0 Includes: PROPHYLAXIS forvenous thrombosis, systemic embolization; TREATMENT for venous thrombosis and/or pulmonary embolus.HIGH RISK: Target INR is 2.5-3.5 for patients with mechanical heart valves.CBC W/PLT COUNT & AUTO [id number] 00:01:00 Test Item Value Reference Range Comments WHITE BLOOD CELL COUNT (BEAKER) (test qush=364) 8.2 K/ L 3.5-10.5 RED BLOOD CELL COUNT (BEAKER) (test cgho=664) 4.57 M/ L 4.63-6.08 HEMOGLOBIN (BEAKER) (test brgl=483) 13.2 GM/DL 13.7-17.5 HEMATOCRIT (BEAKER) (test ezni=369) 40.5 % 40.1-51.0 MEAN CORPUSCULAR VOLUME (BEAKER) (test hifw=103) 88.6 fL 79.0-92.2 MEAN CORPUSCULAR HEMOGLOBIN (BEAKER) (test 28.9 pg 25.7-32.2 oztz=768) MEAN CORPUSCULAR HEMOGLOBIN CONC (BEAKER) (test 32.6 GM/DL 32.3-36.5 vycz=431) RED CELL DISTRIBUTION WIDTH (BEAKER) (test 15.9 % 11.6-14.4 snbr=452) PLATELET COUNT (BEAKER) (test xnqf=942) 198 K/CU MM 150-450 MEAN PLATELET VOLUME (BEAKER) (test khpa=556) 11.2 fL 9.4-12.4 NUCLEATED RED BLOOD CELLS (BEAKER) (test 0 /100 WBC 0-0 qkls=130) NEUTROPHILS RELATIVE PERCENT (BEAKER) (test 57 % fdok=715) LYMPHOCYTES RELATIVE PERCENT (BEAKER) (test 28 % pvmm=004) MONOCYTES RELATIVE PERCENT (BEAKER) (test 10 % gjws=216) EOSINOPHILS RELATIVE PERCENT (BEAKER) (test 3 % qmoj=007) BASOPHILS RELATIVE PERCENT (BEAKER) (test 1 % babv=142) NEUTROPHILS ABSOLUTE COUNT (BEAKER) (test 4.66 K/ L 1.78-5.38 ftkb=070) LYMPHOCYTES ABSOLUTE COUNT (BEAKER) (test 2.29 K/ L 1.32-3.57 qket=944) MONOCYTES ABSOLUTE COUNT (BEAKER) (test 0.81 K/ L 0.30-0.82 sxdv=477) EOSINOPHILS ABSOLUTE COUNT (BEAKER) (test 0.25 K/ L 0.04-0.54 saix=691) BASOPHILS ABSOLUTE COUNT (BEAKER) (test 0.10 K/ L 0.01-0.08 jryo=588) IMMATURE GRANULOCYTES-RELATIVE PERCENT (BEAKER) 1 % 0-1 (test llqd=8882)
[2017-06-09 19:53] LABS: Absolute Monocytes 0.7 K/uL (0.1-1.3); RBC Red Blood Cell Count 4.47 M/uL (4.33-5.43)
[2017-06-09 19:55] LABS: Protime INR 1.05
[2017-06-09 20:02] LABS: Absolute Neutrophil 4.7 K/uL (1.8-8.0); Basophils % 1.3 % (0-1.3); Lymphocytes % 26.5 % (15.3-44.8); MCH 29.6 pg (27.0-35.0); MCV 89.4 fL (80-100); MPV 9.7 fL (7.6-11.3); Monocytes % 9.2 % (3.3-12.3)
[2017-06-09 20:04] LABS: Bicarbonate 26 mEq/L (21-31); Glucose Level 92 mg/dL (65-120); Potassium 4.3 mEq/L (3.6-5.0); Sodium Level 135 mEq/L (135-145)
--- NOTE | 2017-06-09 20:04 | RAD REPORT ---
EXAM DESCRIPTION: CT - Head Brain Wo Cont - 06/09/2017 7:40 pm CLINICAL HISTORY: Headache COMPARISON: May 2017 TECHNIQUE: Computed axial tomography of the head was obtained. IV contrast was not requested. All CT scans are performed using dose optimization technique as appropriate and may include automated exposure control or mA/KV adjustment according to patient size. FINDINGS: An intracranial bleed is not seen . The ventricles are normal in caliber. No extra-axial fluid collection is noted. Fluid within the sinuses/ mastoids is not seen. IMPRESSION: No acute intracranial abnormality is seen. If patient's symptoms persist MRI of the bra in would be recommended.
--- NOTE | 2017-06-09 20:05 | RAD REPORT ---
EXAM DESCRIPTION: [place] Single View06/09/2017 7:51 pm CLINICAL HISTORY: cough COMPARISON: 2010 FINDINGS: The lungs appear clear of acute infiltrate. The heart is normal size. Pacemaker leads are in place. IMPRESSION: No acute abnormalities displayed
[2017-06-09 20:12] LABS: ALT/SGPT 13 IU/L (10-60); AST/SGOT 23 IU/L (10-42); Albumin 4.3 g/dL (3.2-5.5); Alkaline Phosphatase 123 IU/L (42-121); BUN Blood Urea Nitrogen 12 mg/dL (6-20); Bilirubin Direct 0.2 mg/dL (0-0.2); Bilirubin Total 0.5 mg/dL (0.3-1.2); Creatine Phosphokinase 92 IU/L (22-269); Glomerular Filtration Rate > 90 mL/min (=/>90); Magnesium 1.9 mg/dL (1.8-2.5); Protein, Total 7.9 g/dL (6.0-8.3)
[2017-06-09 20:14] LABS: CKMB Creatine Kinase MB 1.5 ng/ml (0.3-4.0)
--- NOTE | 2017-06-09 20:23 | RAD REPORT ---
EXAM DESCRIPTION: VAS - Lower Extremity Artery Uni Ltd - 06/09/2017 8:07 pm CLINICAL HISTORY: Leg pain COMPARISON: None FINDINGS: The waveform of the right common femoral artery is triphasic. The waveforms of the right superficial femoral, right popliteal, right posterior tibial and right doc salis pedis arteries are biphasic. A high-grade arterial stenosis is not visualized. 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
[2017-06-09] MEDS ORDERED: NA CHLORIDE 0.9% 1,000 ML ONE (20:30)
[2017-06-09] MEDS ORDERED: FOLIC ACID 5 MG/ML VIAL ONE (20:30)
--- NOTE | 2017-06-09 20:51 | EDPHYS ---
Physician Documentation [facility] Name: Maurice Morfin Age: 67 yrs Sex: Male : 1950 Arrival Date: 06/09/2017 Time: 18:27 Bed 4 Private MD: Yung Thomas ED Physician Hector Torrez HPI: 06/09 19:27 This 67 yrs old Male presents to ER via Ambulatory with complaints of rn headache, right leg pain. 19:28 The patient presents with pain, weakness. The complaints affect the right leg. Onset: rn The symptoms/episode began/occurred today. Severity of symptoms: At their worst the symptoms were moderate, in the emergency department the symptoms are unchanged. The patient has experienced similar episodes in the past. Reports headache that began this morning, a few hours ago began with right leg pain and weakness, pain more than weakness, was sitting and hurt to stand up, reports has had pain in that leg before, told had bad circulation but "nothing could be done about it". No trauma, states has been doing fine recently. Had stroke within last 3 months and got TPA, never fully recovered, has some baseline weakness on right side of body.. Historical: - Allergies: 18:56 NKDA; lk1 - PMHx: 18:56 NM; Hypertension; Hernia; enlarged prostate; Dementia; CVA; COPD; Cholelithiasis; lk1 - PSHx: 18:56 PACEMAKER; lk1 - Immunization history:: Adult Immunizations up to date. - Social history:: Smoking status: unknown. - Family history:: not pertinent. - Hospitalizations: : No recent hospitalization is reported. ROS: 19:28 Constitutional: Negative for fever, chills, and weight loss, Eyes: Negative for injury, rn pain, redness, and discharge, Neck: Negative for injury, pain, and swelling, Cardiovascular: Negative for chest pain, palpitations, and edema, Respiratory: Negative for shortness of breath, cough, wheezing, and pleuritic chest pain, Abdomen/GI: Negative for abdominal pain, nausea, vomiting, diarrhea, and constipation, Back: Negative for injury and pain, MS/Extremity: Negative for injury and deformity, Skin: Negative for injury, rash, and discoloration, Neuro: Negative for seizure. Exam: 19:28 Constitutional: This is a well developed, well nourished patient who is awake, alert, rn and in no acute distress. Head/Face: Normocephalic, atraumatic. Eyes: Pupils equal round and reactive to light, extra-ocular motions intact. Lids and lashes normal. Conjunctiva and sclera are non-icteric and not injected. Cornea within normal limits. Periorbital areas with no swelling, redness, or edema. Neck: Trachea midline, no thyromegaly or masses palpated, and no cervical lymphadenopathy. Supple, full range of motion without nuchal rigidity, or vertebral point tenderness. No Meningismus. Cardiovascular: Regular rate and rhythm with a normal S1 and S2. No gallops, murmurs, or rubs. Normal PMI, no JVD. No pulse deficits. Respiratory: Lungs have equal breath sounds bilaterally, clear to auscultation and percussion. No rales, rhonchi or wheezes noted. No increased work of breathing, no retractions or nasal flaring. Abdomen/GI: Soft, non-tender, with normal bowel sounds. No distension or tympany. No guarding or rebound. No evidence of tenderness throughout. MS/ Extremity: Diminished pulses bilateral lower ext Neuro: Awake and alert, GCS 15, oriented to person, place, time, and situation. Cranial nerves II-XII grossly intact. Motor strength 4+/5 RUE/RLE, 5/5 LUE/LLE, no drift on either side. Sensory grossly intact. Vital Signs: 18:56 BP 167 / 74; Pulse 59; Resp 16; Temp 97.9(O); Pulse Ox 100% on R/A; Weight 70.31 kg lk1 (R); Height 5 ft. 9 in. (175.26 cm) (R); Pain 9/10; 19:45 BP 126 / 84; Pulse 65; Resp 18 S; Pulse Ox 99% on R/A; Pain 7/10; ea 20:22 BP 156 / 69; Pulse 60; Resp 18 S; Pulse Ox 99% on R/A; ea 20:58 BP 154 / 78; Pulse 70; Resp 18 S; Pulse Ox 100% on R/A; Pain 3/10; ea 18:56 Body Mass Index 22.89 (70.31 kg, 175.26 cm) lk1 MDM: 19:16 Patient medically screened. rn 19:43 ED course: Symptoms seem more due to pain, mild weakness on right side of body although rn some residual weakness from previous stroke. Also, regardless of what ct scan shows, not TPA candidate due to confirmed stroke less than 3 months ago. . 20:48 Differential diagnosis: radiculopathy, arthritis, CVA, TIA, PAD. Data reviewed: vital rn signs, nurses notes, lab test result(s), radiologic studies, CT scan, doppler, plain films, and as a result, I will discharge patient. Counseling: I had a detailed discussion with the patient and/or guardian regarding: the historical points, exam findings, and any diagnostic results supporting the discharge/admit diagnosis, lab results, radiology results, the need for outpatient follow up, to return to the emergency department if symptoms worsen or persist or if there are any questions or concerns that arise at home. Special discussion: I discussed with the patient/guardian in detail that at this point there is no indication for admission to the hospital. It is understood, however, that if the symptoms persist or worsen the patient needs to return immediately for re-evaluation. ED course: Pt has f/u with cardiology, no new findings on w/u, will dc home with anti-inflammatories and pcp/cardiology f/u. . 06/09 19:14 Order name: Basic Metabolic Panel; Complete Time: 20:24 06/09 19:14 Order name: BNP; Complete Time: 20:24 06/09 19:14 Order name: CBC with Diff; Complete Time: 20:42 06/09 19:14 Order name: Ckmb; Complete Time: 20:24 06/09 19:14 Order name: CPK; Complete Time: 20:24 06/09 19:14 Order name: LFT's; Complete Time: 20:24 06/09 19:14 Order name: Magnesium; Complete Time: 20:24 06/09 19:14 Order name: PT-INR; Complete Time: 20:24 06/09 19:14 Order name: Ptt, Activated; Complete Time: 20:24 06/09 19:14 Order name: Troponin (emerg Dept Use Only); Complete Time: 20:24 06/09 19:14 Order name: XRAY Chest (1 view); Complete Time: 20:24 06/09 19:14 Order name: Urine Culture 04 19:14 Order name: CRP; Complete Time: 20:24 [facility] 06/09 19:14 Order name: Sed Rate; Complete Time: 20:42 [facility] 06/09 19:14 Order name: EKG; Complete Time: 19:15 [facility] 06/09 19:14 Order name: Cardiac monitoring; Complete Time: 19:41 [facility] 06/09 19:14 Order name: EKG - Nurse/Tech; Complete Time: 19:41 [facility] 06/09 19:14 Order name: IV Saline Lock; Complete Time: 19:41 [facility] 06/09 19:14 Order name: Labs collected and sent; Complete Time: 19:41 [facility] 06/09 19:14 Order name: O2 Per Protocol; Complete Time: 19:41 [facility] 06/09 19:14 Order name: O2 Sat Monitoring; Complete Time: 19:41 [facility] 06/09 19:14 Order name: Urine Dipstick-Ancillary (obtain specimen); Complete Time: 19:41 [facility] 06/09 19:14 Order name: CT Head Brain wo Cont; Complete Time: 20:24 [facility] 06/09 19:27 Order name: US Lower Extremity (Artery [employer]); Complete Time: 20:24 rn Administered Medications: 20:15 Drug: NS 0.9% 1000 ml Route: IV; Rate: 1 bolus; Site: left hand; ea 21:09 Follow up: Response: No adverse reaction; IV Status: Completed infusion ea 20:16 Drug: foLIC Acid 1 mg Route: IVPB; Site: left hand; ea 20:58 Follow up: Response: No adverse reaction; IV Status: Completed infusion ea Disposition: 06/09/17 20:50 Discharged to Home. Impression: Weakness, Peripheral arterial disease, Osteoarthritis of hip. - Condition is Stable. - Discharge Instructions: Arthritis, Nonspecific, Weakness. - Medication Reconciliation Form, Thank You Letter, Antibiotic Education, Prescription Opioid Use form. - Follow up: Private Physician; When: As needed; Reason: Recheck today's complaints, Re-evaluation by your physician. - Problem is new. - Symptoms have improved. Signatures: Dispatcher [employer] EDCaio Johnson MD MD cha Nieto, Roman, MD MD rn Kluge, Leah RN RN lkJyoti Wong RN RN ea
--- NOTE | 2017-06-09 20:51 | ER ---
Nurse's Notes [facility] Name: Maurice Morfin Age: 67 yrs Sex: Male : 1950 Arrival Date: 06/09/2017 Time: 18:27 Bed 4 Private MD: Yung Thomas Diagnosis: Weakness;Peripheral arterial disease;Osteoarthritis of hip Presentation: 06/09 18:45 Presenting complaint: Patient states: "I hurt on my right side from the waist all the lk1 way down. I have had a bad headache on the right all day. I had a stroke back in March.". Presenting complaint:. Transition of care: patient was not received from another setting of care. 18:45 Method Of Arrival: Ambulatory lk1 18:57 Onset of symptoms was June 09, 2017 at 09:00. Care prior to arrival: None. lk1 18:57 Acuity: WAYLON 3 lk1 Triage Assessment: 18:57 General: Appears in no apparent distress. Behavior is calm, cooperative, appropriate lk1 for age. Pain: Complains of pain in head and right leg. Neuro: Level of Consciousness is awake, alert, obeys commands, Oriented to person, place, time, situation. Stroke Activation: Symptom onset > 6 hours Physician: Stroke Attending; Name: ; Notified At: ; Arrived At: Physician: Chief Stroke Resident; Name: ; Notified At: ; Arrived At: Physician: Stroke Resident; Name: ; Notified At: ; Arrived At: Physician: ED Attending; Name: ; Notified At: ; Arrived At: Physician: ED Resident; Name: ; Notified At: ; Arrived At: Historical: - Allergies: 18:56 NKDA; lk1 - PMHx: 18:56 TN; Hypertension; Hernia; enlarged prostate; Dementia; CVA; COPD; Cholelithiasis; lk1 - PSHx: 18:56 PACEMAKER; lk1 - Immunization history:: Adult Immunizations up to date. - Social history:: Smoking status: unknown. - Family history:: not pertinent. - Hospitalizations: : No recent hospitalization is reported. Screenin:45 Abuse screen: Denies threats or abuse. Nutritional screening: No deficits noted. ea Tuberculosis screening: No symptoms or risk factors identified. Fall Risk None identified. Assessment: 19:10 General: Appears in no apparent distress. Behavior is calm, cooperative, appropriate ea for age. Pain: Complains of pain in right hip Pain radiates to right leg Pain currently is 7 out of 10 on a pain scale. Quality of pain is described as aching, Pain began 1430 today Is continuous. Neuro: Level of Consciousness is awake, alert, obeys commands, Oriented to person, place, time, situation, Telephone Information Clerk are equal bilaterally Moves all extremities. Speech is normal, Facial symmetry appears normal, Pupils are PERRLA, Intact. Cardiovascular: Heart tones present Patient's skin is warm and dry. Respiratory: Airway is patent Respiratory effort is even, unlabored, Respiratory pattern is regular, symmetrical, Breath sounds are clear bilaterally. GI: Abdomen is round non-distended, Bowel sounds present X 4 quads. Abd is soft and non tender. : No signs and/or symptoms were reported regarding the genitourinary system. EENT: No signs and/or symptoms were reported regarding the EENT system. Derm: Skin is pink, warm \\T\\ dry. 20:16 Reassessment: Patient and/or family updated on plan of care and expected duration. Pain ea level reassessed. Patient is alert, oriented x 3, equal unlabored respirations, skin warm/dry/pink. Son at bedside. 21:04 Reassessment: Patient and/or family updated on plan of care and expected duration. Pain ea level reassessed. Patient is alert, oriented x 3, equal unlabored respirations, skin warm/dry/pink. Discharge instructions given to patient and family, both verbalized the understanding of instructions. Vital Signs: 18:56 BP 167 / 74; Pulse 59; Resp 16; Temp 97.9(O); Pulse Ox 100% on R/A; Weight 70.31 kg lk1 (R); Height 5 ft. 9 in. (175.26 cm) (R); Pain 9/10; 19:45 BP 126 / 84; Pulse 65; Resp 18 S; Pulse Ox 99% on R/A; Pain 7/10; ea 20:22 BP 156 / 69; Pulse 60; Resp 18 S; Pulse Ox 99% on R/A; ea 20:58 BP 154 / 78; Pulse 70; Resp 18 S; Pulse Ox 100% on R/A; Pain 3/10; ea 18:56 Body Mass Index 22.89 (70.31 kg, 175.26 cm) lk1 ED Course: 18:27 Patient arrived in ED. mr 18:27 Yung Thomas MD is Private Physician. mr 18:57 Triage completed. lk1 18:58 Arm band placed on right wrist. lk1 19:10 Patient has correct armband on for positive identification. Bed in low position. Call ea light in reach. Side rails up X2. 19:13 Jyoti Blackwell, RN is Primary Nurse. ea 19:16 Hector Torrez MD is Attending Physician. rn 19:[address] via stretcher. nj 19:40 CT Head Brain wo Cont In Process Unspecified. EDMS 19:43 Inserted saline lock: 22 gauge in left wrist, using aseptic technique. Blood collected. oe 19:44 X-ray completed. Portable x-ray completed in exam room. Patient tolerated procedure jb2 well. 19:45 XRAY Chest (1 view) In Process Unspecified. EDMS 20:07 US Lower Extremity (Artery [employer]) In Process Unspecified. EDMS 21:00 IV discontinued, intact, bleeding controlled, No redness/swelling at site. Pressure ea dressing applied. 21:06 No provider procedures requiring assistance completed. ea Administered Medications: 20:15 Drug: NS 0.9% 1000 ml Route: IV; Rate: 1 bolus; Site: left hand; ea 21:09 Follow up: Response: No adverse reaction; IV Status: Completed infusion ea 20:16 Drug: foLIC Acid 1 mg Route: IVPB; Site: left hand; ea 20:58 Follow up: Response: No adverse reaction; IV Status: Completed infusion ea Outcome: 20:50 Discharge ordered by . rn 21:06 Discharged to home ambulatory, with family. ea 21:06 Condition: improved 21:06 Discharge instructions given to patient, family, Instructed on discharge instructions, follow up and referral plans. Demonstrated understanding of instructions, follow-up care. 21:09 Patient left the ED. ea Signatures: Dispatcher [employer] EDNJ Amber Colbert Valentín Lee jb2 Hector Torrez MD MD rn Kluge, Leah, RN RN lk1 Kendell Lewis [place] oe Jyoti Blackwell, RN RN ea
[2017-06-09 21:20] VITALS: TEMP 97.9
[2017-06-09 21:22] LABS: Urine Blood NEGATIVE (NEG); Urine Glucose NEGATIVE (NEG); Urine Protein NEGATIVE (NEG); Urine Specific Gravity 1.015 (1.005-1.030)
[2017-06-09 21:24] VITALS: BP 154/78; O2SAT 100
--- NOTE | 2017-06-10 10:09 | EKG ---
Test Date: 2017-06-09 Test Time: 19:26:29 [employer] Laborer: FRANKY MEASUREMENT RESULTS: Intervals: Rate: 60 DE: 186 QRSD: 70 QT: 380 QTc: 380 [place]: P: 42 DE: 186 QRS: 24 T: 68 INTERPRETIVE STATEMENTS: Atrial-paced rhythm Abnormal ECG Compared to ECG 05/16/2017 06:35:31 Ventricular premature complex(es) no longer present Electronically Signed On 06-10-17 10:07:46 CDT by Luis Carlos Quevedo
== END 2017-06-09 21:09 | disposition home or self-care (01) ==
LOC: ER 18:23
DX: I73.9 Peripheral vascular disease, unspecified (principal); M16.11 Unilateral primary osteoarthritis, right hip; I10 Essential (primary) hypertension; Z95.0 Presence of cardiac pacemaker; Z86.73 Personal history of transient ischemic attack (TIA), and cerebral infarction without residual deficits
CPT/HCPCS: 36415; 70450; 71045; 80048; 80076; 81003; 82550; 82553; 83735; 83880; 84484; 85025; 85610; 85652; 85730; 86140; 87086; 87088; 93005; 93926; 96365; 99284; J7030

== ENCOUNTER 2017-06-26 13:28 | Emergency (ER) | payer OTHER ==
--- OUTSIDE RECORDS SUMMARY | 2017-06-26 13:30 | XMS REPORT ---
:1950 Demographics Address [address] [place] [address] Email Address NONE Preferred Language Unknown Marital Status Unknown [employer] Affiliation Unknown Race Unknown Additional Race(s) Unavailable Ethnic Group Unknown Author Organization [facility] Address [address] [place] [address] Care Team Providers Name Role Phone GENO [...] Comments SODIUM (BEAKER) (test 136 meq/L 136-145 cbik=463) POTASSIUM (BEAKER) (test 4.0 meq/L 3.5-5.1 nbug=087) CHLORIDE (BEAKER) (test 106 meq/L 98-107 eeui=497) CO2 (BEAKER) (test czyq=306) 23 meq/L 22-29 BLOOD UREA NITROGEN (BEAKER) 15 mg/dL 7-21 (test ixvd=388) CREATININE (BEAKER) (test 0.92 mg/dL 0.57-1.25 pxnk=103) GLUCOSE RANDOM (BEAKER) 92 mg/dL 70-105 (test aalf=722) CALCIUM (BEAKER) (test 8.7 mg/dL 8.4-10.2 fpdc=161) EGFR (BEAKER) (test 82 mL/min/1.73 sq m ESTIMATED GFR IS NOT trdc=8331) ACCURATE CREATININE CLEARANCE IN PREDICTING GLOMERULAR FILTRATION RATE. ESTIMATED GFR IS NOT APPLICABLE FOR DIALYSIS PATIENTS. CBC W/PLT COUNT & AUTO [id number] 05:55:00 Test Item Value Reference Range Comments WHITE BLOOD CELL COUNT (BEAKER) (test kugo=875) 5.9 K/ L 3.5-10.5 RED BLOOD CELL COUNT (BEAKER) (test hmjn=997) 4.25 M/ L 4.63-6.08 HEMOGLOBIN (BEAKER) (test lswo=657) 12.3 GM/DL 13.7-17.5 HEMATOCRIT (BEAKER) (test rdlo=719) 37.8 % 40.1-51.0 MEAN CORPUSCULAR VOLUME (BEAKER) (test lrnj=315) 88.9 fL 79.0-92.2 MEAN CORPUSCULAR HEMOGLOBIN (BEAKER) (test 28.9 pg 25.7-32.2 zzic=152) MEAN CORPUSCULAR HEMOGLOBIN CONC (BEAKER) (test 32.5 GM/DL 32.3-36.5 cpvg=910) RED CELL DISTRIBUTION WIDTH (BEAKER) (test 15.9 % 11.6-14.4 ugbe=049) PLATELET COUNT (BEAKER) (test cqsn=301) 173 K/CU MM 150-450 MEAN PLATELET VOLUME (BEAKER) (test uglk=681) 11.5 fL 9.4-12.4 NUCLEATED RED BLOOD CELLS (BEAKER) (test 0 /100 WBC 0-0 slrp=771) NEUTROPHILS RELATIVE PERCENT (BEAKER) (test 48 % lwxx=258) LYMPHOCYTES RELATIVE PERCENT (BEAKER) (test 34 % xjrw=592) MONOCYTES RELATIVE PERCENT (BEAKER) (test 12 % euqr=280) EOSINOPHILS RELATIVE PERCENT (BEAKER) (test 4 % nljk=537) BASOPHILS RELATIVE PERCENT (BEAKER) (test 2 % yruh=817) NEUTROPHILS ABSOLUTE COUNT (BEAKER) (test 2.85 K/ L 1.78-5.38 pcfh=763) LYMPHOCYTES ABSOLUTE COUNT (BEAKER) (test 2.02 K/ L 1.32-3.57 ikkm=725) MONOCYTES ABSOLUTE COUNT (BEAKER) (test 0.68 K/ L 0.30-0.82 nerx=877) EOSINOPHILS ABSOLUTE COUNT (BEAKER) (test 0.25 K/ L 0.04-0.54 hvnl=704) BASOPHILS ABSOLUTE COUNT (BEAKER) (test 0.09 K/ L 0.01-0.08 uqjp=045) IMMATURE GRANULOCYTES-RELATIVE PERCENT (BEAKER) 1 % 0-1 (test hqwf=5692) CBC W/PLT COUNT & AUTO [id number] 05:15:00 Test Item Value Reference Range Comments WHITE BLOOD CELL COUNT (BEAKER) (test trfx=184) 5.4 K/ L 3.5-10.5 RED BLOOD CELL COUNT (BEAKER) (test apjw=250) 4.34 M/ L 4.63-6.08 HEMOGLOBIN (BEAKER) (test qsad=402) 12.5 GM/DL 13.7-17.5 HEMATOCRIT (BEAKER) (test rqou=791) 39.0 % 40.1-51.0 MEAN CORPUSCULAR VOLUME (BEAKER) (test pthj=589) 89.9 fL 79.0-92.2 MEAN CORPUSCULAR HEMOGLOBIN (BEAKER) (test 28.8 pg 25.7-32.2 apch=823) MEAN CORPUSCULAR HEMOGLOBIN CONC (BEAKER) (test 32.1 GM/DL 32.3-36.5 mdgs=010) RED CELL DISTRIBUTION WIDTH (BEAKER) (test 15.9 % 11.6-14.4 wnoc=510) PLATELET COUNT (BEAKER) (test zpcu=936) 162 K/CU MM 150-450 MEAN PLATELET VOLUME (BEAKER) (test real=525) 10.6 fL 9.4-12.4 NUCLEATED RED BLOOD CELLS (BEAKER) (test 0 /100 WBC 0-0 oeea=827) NEUTROPHILS RELATIVE PERCENT (BEAKER) (test 52 % ebdj=354) LYMPHOCYTES RELATIVE PERCENT (BEAKER) (test 31 % blmy=844) MONOCYTES RELATIVE PERCENT (BEAKER) (test 11 % hypp=596) EOSINOPHILS RELATIVE PERCENT (BEAKER) (test 4 % dlkb=162) BASOPHILS RELATIVE PERCENT (BEAKER) (test 2 % lmdw=741) NEUTROPHILS ABSOLUTE COUNT (BEAKER) (test 2.78 K/ L 1.78-5.38 jjwt=897) LYMPHOCYTES ABSOLUTE COUNT (BEAKER) (test 1.69 K/ L 1.32-3.57 xqxx=563) MONOCYTES ABSOLUTE COUNT (BEAKER) (test 0.59 K/ L 0.30-0.82 qetu=507) EOSINOPHILS ABSOLUTE COUNT (BEAKER) (test 0.21 K/ L 0.04-0.54 csvm=495) BASOPHILS ABSOLUTE COUNT (BEAKER) (test 0.09 K/ L 0.01-0.08 pdwr=215) IMMATURE GRANULOCYTES-RELATIVE PERCENT (BEAKER) 1 % 0-1 (test yyoc=9424) CT, BRAIN, WITHOUT [id number] 15:31:00FINAL REPORT CT head without contrast 03/12/2017 [...] Paez Verified Date/Time: 03/12/2017 15:31:17 Reading Location: [address] Neuro Reading Room TROPONIN [id number] 15:26:00 Test Item Value Reference Range Comments TROPONIN I (KYARA) (test vbrw=236) 0.02 ng/mL 0.00-0.03 Troponin I (TnI) levels [...] acidosis, acute neurological disease, and persistent tachyarrhythmia.HEMOGLOBIN [id number] 12:38:00 Test Item Value Reference Range Comments HEMOGLOBIN A1C (KYARA) (test tpod=209) 5.6 % 4.3-6.1 FastingRAD, CHEST, 1 VIEW, NON [id number] 10:06:00Reason for exam:->rule out pneumoniaShould this be [...] Benites Verified Date/Time: 03/12/2017 10:06:57 Reading Location: [facility] Radiology Reading Room [id number] 09:08:00 Test Item Value Reference Range Comments HOMOCYSTEINE (BEAKER) (test vksa=504) 11.8 umol/L 5.1-15.4 FastingCREATINE KINASE (CK), TOTAL AND [id number] 08:55:00 Test Item Value Reference Range Comments CREATINE KINASE TOTAL (BEAKER) (test onun=459) 59 U/L 29-200 CREATINE KINASE-MB (BEAKER) (test bakh=180) 1.0 ng/mL 0.0-6.6 CREATINE KINASE-MB INDEX (BEAKER) (test ksnh=637) 1.7 % CK-MB Reference Range:<6.7 Normal6.7-10.0 Borderline>10.0 AbnormalFastingFastingTROPONIN [id number] 08:55:00 Test Item Value Reference Range Comments TROPONIN I (BEAKER) (test tjql=057) < ng/mL 0.00-0.03 Troponin I (TnI) levels [...] acidosis, acute neurological disease, and persistent tachyarrhythmia.FastingLIPID [id number] 08:48:00 Test Item Value Reference Range Comments TRIGLYCERIDES (BEAKER) (test umke=366) 151 mg/dL CHOLESTEROL (BEAKER) (test njwb=334) 147 mg/dL HDL CHOLESTEROL (BEAKER) (test zpma=963) 29 mg/dL LDL CHOLESTEROL CALCULATED (BEAKER) (test 88 mg/dL oiyc=071) Triglyceride Reference Range: Low Risk <150 Borderline 150- 199 High Risk 200-499 Very High Risk >=500Cholesterol Reference Range: Low Risk <200 Borderline 200-239 High Risk > 240HDL Cholesterol Reference Range: Low Risk >=60 High Risk <40LDL Cholesterol Reference Range: Optimal <100 Near Optimal 100-129 Borderline 130-159 High 160-189 Very High >=190 FastingBASIC METABOLIC [id number] 08:48:00 Test Item Value Reference Range Comments SODIUM (BEAKER) (test 136 meq/L 136-145 dysx=500) POTASSIUM (BEAKER) (test 4.4 meq/L 3.5-5.1 cxtq=901) CHLORIDE (BEAKER) (test 104 meq/L 98-107 qncf=465) CO2 (BEAKER) (test 25 meq/L 22-29 dvdt=594) BLOOD UREA NITROGEN 15 mg/dL 7-21 (BEAKER) (test ntet=916) CREATININE (BEAKER) (test 0.87 mg/dL 0.57-1.25 hopo=432) GLUCOSE RANDOM (BEAKER) 102 mg/dL 70-105 (test nqpg=855) CALCIUM (BEAKER) (test 8.9 mg/dL 8.4-10.2 urah=581) EGFR (BEAKER) (test 87 mL/min/1.73 sq m ESTIMATED GFR IS NOT hiio=0382) ACCURATE CREATININE CLEARANCE IN PREDICTING GLOMERULAR FILTRATION RATE. ESTIMATED GFR IS NOT APPLICABLE FOR DIALYSIS PATIENTS. FastingCBC W/PLT COUNT & AUTO [id number] 08:24:00 Test Item Value Reference Range Comments WHITE BLOOD CELL COUNT (BEAKER) (test enef=381) 5.7 K/ L 3.5-10.5 RED BLOOD CELL COUNT (BEAKER) (test ascy=890) 4.23 M/ L 4.63-6.08 HEMOGLOBIN (BEAKER) (test uxry=240) 12.3 GM/DL 13.7-17.5 HEMATOCRIT (BEAKER) (test cohl=966) 37.9 % 40.1-51.0 MEAN CORPUSCULAR VOLUME (BEAKER) (test rrwm=303) 89.6 fL 79.0-92.2 MEAN CORPUSCULAR HEMOGLOBIN (BEAKER) (test 29.1 pg 25.7-32.2 xuqt=182) MEAN CORPUSCULAR HEMOGLOBIN CONC (BEAKER) (test 32.5 GM/DL 32.3-36.5 ernr=296) RED CELL DISTRIBUTION WIDTH (BEAKER) (test 15.9 % 11.6-14.4 uewq=468) PLATELET COUNT (BEAKER) (test dwoh=859) 156 K/CU MM 150-450 MEAN PLATELET VOLUME (BEAKER) (test mkzg=864) 10.2 fL 9.4-12.4 NUCLEATED RED BLOOD CELLS (BEAKER) (test 0 /100 WBC 0-0 kvfm=123) NEUTROPHILS RELATIVE PERCENT (BEAKER) (test 47 % ewkb=357) LYMPHOCYTES RELATIVE PERCENT (BEAKER) (test 37 % nxmv=130) MONOCYTES RELATIVE PERCENT (BEAKER) (test 12 % jonf=059) EOSINOPHILS RELATIVE PERCENT (BEAKER) (test 3 % qlqt=419) BASOPHILS RELATIVE PERCENT (BEAKER) (test 2 % ouzy=303) NEUTROPHILS ABSOLUTE COUNT (BEAKER) (test 2.66 K/ L 1.78-5.38 ufjr=400) LYMPHOCYTES ABSOLUTE COUNT (BEAKER) (test 2.09 K/ L 1.32-3.57 gynt=005) MONOCYTES ABSOLUTE COUNT (BEAKER) (test 0.70 K/ L 0.30-0.82 mynl=853) EOSINOPHILS ABSOLUTE COUNT (BEAKER) (test 0.15 K/ L 0.04-0.54 sfyn=768) BASOPHILS ABSOLUTE COUNT (BEAKER) (test 0.09 K/ L 0.01-0.08 cmab=865) IMMATURE GRANULOCYTES-RELATIVE PERCENT (BEAKER) 1 % 0-1 (test xqwm=6457) TSH/FREE T4 IF [id number] 03:38:00 Test Item Value Reference Range Comments THYROID STIMULATING HORMONE (BEAKER) (test 2.01 uIU/mL 0.35-4.94 smhl=547) VITAMIN B12 AND [id number] 03:38:00 Test Item Value Reference Range Comments VITAMIN B12 (BEAKER) (test mbbv=614) 1008 pg/mL 213-816 FOLATE (BEAKER) (test hmwx=834) 8.4 ng/mL >=7.0 CREATINE KINASE (CK), TOTAL AND [id number] 01:03:00 Test Item Value Reference Range Comments CREATINE KINASE TOTAL (BEAKER) (test tpjc=864) 66 U/L 29-200 CREATINE KINASE-MB (BEAKER) (test gqnf=290) 1.4 ng/mL 0.0-6.6 CREATINE KINASE-MB INDEX (BEAKER) (test rnzf=184) 2.1 % CK-MB Reference Range:<6.7 Normal6.7-10.0 Borderline>10.0 AbnormalTROPONIN [id number] 01:03:00 Test Item Value Reference Range Comments TROPONIN I (BEAKER) (test gwjo=205) 0.02 ng/mL 0.00-0.03 Troponin I (TnI) levels [...] acute neurological disease, and persistent tachyarrhythmia.BASIC METABOLIC [id number] 00:56:00 Test Item Value Reference Range Comments SODIUM (BEAKER) (test 136 meq/L 136-145 egwm=275) POTASSIUM (BEAKER) (test 3.9 meq/L 3.5-5.1 edzy=008) CHLORIDE (BEAKER) (test 104 meq/L 98-107 sstg=927) CO2 (BEAKER) (test 24 meq/L 22-29 cjvw=301) BLOOD UREA NITROGEN 14 mg/dL 7-21 (BEAKER) (test iqlx=380) CREATININE (BEAKER) (test 0.87 mg/dL 0.57-1.25 umfx=473) GLUCOSE RANDOM (BEAKER) 104 mg/dL 70-105 (test iagv=370) CALCIUM (BEAKER) (test 9.2 mg/dL 8.4-10.2 yigb=059) EGFR (BEAKER) (test 87 mL/min/1.73 sq m ESTIMATED GFR IS NOT mocp=8826) ACCURATE CREATININE CLEARANCE IN PREDICTING GLOMERULAR FILTRATION RATE. ESTIMATED GFR IS NOT APPLICABLE FOR DIALYSIS PATIENTS. PROTHROMBIN TIME/[id number] 00:27:00 Test Item Value Reference Range Comments PROTIME (BEAKER) (test hubr=626) 17.2 seconds 11.7-14.7 INR (BEAKER) (test geyx=785) 1.4 <=5.9 RECOMMENDED COUMADIN/WARFARIN INR THERAPY RANGESSTANDARD DOSE: 2.0 - 3.0 Includes: PROPHYLAXIS forvenous thrombosis, systemic embolization; TREATMENT for venous thrombosis and/or pulmonary embolus.HIGH RISK: Target INR is 2.5-3.5 for patients with mechanical heart valves.CBC W/PLT COUNT & AUTO [id number] 00:01:00 Test Item Value Reference Range Comments WHITE BLOOD CELL COUNT (BEAKER) (test bkrs=140) 8.2 K/ L 3.5-10.5 RED BLOOD CELL COUNT (BEAKER) (test jfvt=012) 4.57 M/ L 4.63-6.08 HEMOGLOBIN (BEAKER) (test syjb=388) 13.2 GM/DL 13.7-17.5 HEMATOCRIT (BEAKER) (test khls=369) 40.5 % 40.1-51.0 MEAN CORPUSCULAR VOLUME (BEAKER) (test orks=776) 88.6 fL 79.0-92.2 MEAN CORPUSCULAR HEMOGLOBIN (BEAKER) (test 28.9 pg 25.7-32.2 bozh=716) MEAN CORPUSCULAR HEMOGLOBIN CONC (BEAKER) (test 32.6 GM/DL 32.3-36.5 ewec=324) RED CELL DISTRIBUTION WIDTH (BEAKER) (test 15.9 % 11.6-14.4 qdan=641) PLATELET COUNT (BEAKER) (test cton=007) 198 K/CU MM 150-450 MEAN PLATELET VOLUME (BEAKER) (test nhoj=875) 11.2 fL 9.4-12.4 NUCLEATED RED BLOOD CELLS (BEAKER) (test 0 /100 WBC 0-0 qray=833) NEUTROPHILS RELATIVE PERCENT (BEAKER) (test 57 % lvlx=474) LYMPHOCYTES RELATIVE PERCENT (BEAKER) (test 28 % swfg=649) MONOCYTES RELATIVE PERCENT (BEAKER) (test 10 % ucln=724) EOSINOPHILS RELATIVE PERCENT (BEAKER) (test 3 % wpri=090) BASOPHILS RELATIVE PERCENT (BEAKER) (test 1 % cryc=323) NEUTROPHILS ABSOLUTE COUNT (BEAKER) (test 4.66 K/ L 1.78-5.38 jxds=663) LYMPHOCYTES ABSOLUTE COUNT (BEAKER) (test 2.29 K/ L 1.32-3.57 xawz=235) MONOCYTES ABSOLUTE COUNT (BEAKER) (test 0.81 K/ L 0.30-0.82 vppq=232) EOSINOPHILS ABSOLUTE COUNT (BEAKER) (test 0.25 K/ L 0.04-0.54 zucu=356) BASOPHILS ABSOLUTE COUNT (BEAKER) (test 0.10 K/ L 0.01-0.08 wtzv=513) IMMATURE GRANULOCYTES-RELATIVE PERCENT (BEAKER) 1 % 0-1 (test bzmo=0991)
--- OUTSIDE RECORDS SUMMARY | 2017-06-26 13:30 | XMS REPORT | Clinical Summary ---
:1950 Demographics Address [address] [place] [address] Home Phone Mobile Phone Preferred Language [place]guill[place] Marital Status Unknown Protestant Affiliation Unknown Race White Ethnic Group Not or Author Organization [facility] Address [address] [place] [address] Phone Support Name Relationship Address Phone Mami Pena [address] [place] [address] Unavailable Naturalson [address] [place] [address] Care Team Providers Name Role Phone Unavailable [...] prior to 03/12 arrival Acute ischemic stroke ([facility]) 03/11/2017 HLD (hyperlipidemia) 01/17/2016 Peripheral vascular disease ([facility]) 01/14/2016 Postoperative anemia 01/14/2016 Coronary artery disease involving navajo coronary artery 01/10/2016 PAD (peripheral artery disease) ([facility]) 01/10/2016 HTN (hypertension) 01/10/2016 Iliac artery stenosis, bilateral ([facility]) 01/10/2016 Unstable angina ([facility]) 01/10/2016 COPD (chronic obstructive pulmonary disease) ([facility]) 01/10/2016 Tobacco abuse 01/10/2016 ACS (acute coronary syndrome) ([facility]) 01/10/2016 Encounters Date Type Specialty Care Team Description 03/11/2017 - Hospital Encounter General Internal Corbin Garcia Acute ischemic 03/14/2017 Medicine MD Doug stroke Stephanie Lugo ([facility]);Received MD Addie tissue plasminogen activator (t-PA) less than 24 hours prior to arrival;Essential hypertension;Periph eral vascular disease ([facility]);Tobacco abuse;Tobacco abuse counseling after 06/25/2016 Social History Tobacco Use Types Packs/Day Years Used Date Current Every Day Smoker Cigarettes 0.5 50 Smokeless Tobacco: Never Used Tobacco Cessation: Ready to Quit: No; Counseling Given: No Comments: 5-6 cigarettes a day Alcohol Use Drinks/Week oz/Week Comments No Sex Assigned at Date Recorded Not on file Last Filed Vital Signs Vital Sign Reading Time Taken Blood Pressure 119/65 03/14/2017 7:15 AM [facility] Pulse 60 03/14/2017 7:15 AM [facility] Temperature 35.8 C (96.4 F) 03/14/2017 7:15 AM [facility] Respiratory Rate 17 03/14/2017 7:15 AM [facility] Oxygen Saturation 96% 03/14/2017 7:15 AM [facility] Inhaled Oxygen Concentration - - Weight 70.4 kg (155 lb 3.3 oz) 03/11/2017 11:00 PM [facility] Height 172.7 cm (5' 8") 03/11/2017 11:00 PM [facility] Body Mass Index 23.6 03/11/2017 11:00 PM [facility] Plan of Treatment Health Maintenance Due Date Last Done Comments INFLUENZA VACCINE 12/06/2017 Implants Implanted Type Area Proof Machine Operator Device Expiration Model / Identifier Date Serial / Lot Grft Eptfe-Heparin Rng [id number] - [id number] Graft/Pa N/A: MARIELENA PRESCOTT & 09/01/2019 [id number] / Implanted: Qty: 1 on 01/13/2016 by Oniel Smith MD [facility] Arterial ASSC: [facility] [id number] / Results ARRYTHMIA IMPLANT REPORT - SCAN [...] - 1 % Specimen Performing Laboratory Blood [address] [address] CBC with platelet count + automated diff (03/14/2017 4:53 AM)Only the most recent of4 resultswithin the time period is included. Specimen Performing Laboratory Blood Narrative The following orders were created for panel order CBC with platelet count + automated diff. Procedure Abnormality Status --------- ------ CBC with platelet count ...[[id number]]AbnormalFinal result Please view results for these tests [...] DIALYSIS PATIENTS. Specimen Performing Laboratory Blood [facility] [address] [address] ECHOCARDIOGRAM REPORT - SCAN (03/12/2017 4:57 PM)CT [...] MD Report Verified Date/Time:03/12/2017 15:31:17 Reading Location: [address] Neuro Reading Room Procedure Note Interface, External Ris In - 03/12/2017 3:33 PM [facility] FINAL REPORT CT head without contrast 03/12/2017 [...] Report Verified Date/Time: 03/12/2017 15:31:17 Reading Location: [facility] C013V Neuro Reading Room Troponin I (03/12/2017 2:28 PM)Only the most recent of3 resultswithin the time period is included. Component Value Ref Range Troponin I 0.02 0.00 - 0.03 ng/mL Specimen Performing Laboratory Blood - [address], [place] [address] Narrative Troponin I (TnI) levels must be [...] lead (03/12/2017 2:16 PM) Specimen Performing Laboratory [facility] MUSE Narrative Ventricular Rate 60 BPM Atrial Rate 60 BPM P-R Interval 138 ms QRS Duration 74 ms Q-T Interval 414 ms QTC Calculation(Bazett) 414 ms P [place] -18 degrees R [place] 9 degrees T [place] 68 degrees Electronic atrial pacemaker ST abnormality, possible digitalis effect Abnormal ECG No previous ECGs available Confirmed by Jasmeet HAIDER MICHAEL ([id number]) on 03/13/2017 9:39:18 AM Procedure Note Interface, External Ris In - 03/13/2017 9:39 AM [facility] Ventricular Rate 60 BPM Atrial Rate 60 BPM P-R Interval 138 ms QRS Duration 74 ms Q-T Interval 414 ms QTC Calculation(Bazett) 414 ms P [place] -18 degrees R [place] 9 degrees T [place] 68 degrees Electronic atrial pacemaker ST abnormality, possible digitalis effect Abnormal ECG No previous ECGs available Confirmed by Jasmeet HAIDER MICHAEL ([id number]) on 03/13/2017 9:39:18 AM 2D Echo W/Doppler(CW/PW/Color) (03/12/2017 10:53 AM) Component Value Ref Range Ejection Fraction Specimen Performing Laboratory [facility] ECHO HEART[facility] DENISE CPACS Narrative Transthoracic Echocardiography Report (TTE) Demographics Patient Name Tyron PENA of Study 03/12/2017 [id number] GenderMale Visit Number [id number] Chuck [id number] Number [id number] Number Date of Birth1950 Referring Physician Corbin Garcia Age67 year(s) Envelope Cutter Kristopher Muniz MD Physician Fellow CHLOE Melton Procedure Type of Study TTE procedure:2DECHO W DOPPLER(CW/PW/COLOR) Indications:Stroke . Clinical History COPD,CVA,DEMENTIA,ENLARGED PROSTATE,HERNIA CEREBRI,HTN,HI,SMOKING Height: 68 inches Weight: 70.31 kg (155 [...] External Ris In - 03/12/2017 4:15 PM [facility] Transthoracic Echocardiography Report (TTE) Demographics Patient Name MAMI PENA Date of Study 03/12/2017 Gender Male Visit Number [id number] Race Room Number 7518 Number Date of 1950 Referring Physician Corbin Garcia Age 67 year(s) Envelope Cutter Kristopher Engle Interpreting Prosper Muniz MD Physician Fellow CHLOE Melton Procedure Type of Study TTE procedure:2DECHO W DOPPLER(CW/PW/COLOR) Indications:Stroke . Clinical History COPD,CVA,DEMENTIA,ENLARGED PROSTATE,HERNIA CEREBRI,HTN,HI,SMOKING Height: 68 inches Weight: 70.31 kg (155 [...] MD Report Verified Date/Time:03/12/2017 10:06:57 Reading Location: [facility] Radiology Reading Room Procedure Note Interface, External Ris In - 03/12/2017 10:09 AM [facility] FINAL REPORT Two frontal chest images Discussion: [...] Report Verified Date/Time: 03/12/2017 10:06:57 Reading Location: [facility] Radiology Reading Room PHERAL VASCULAR REPORT - SCAN (03/12/2017 8:20 AM)Homocysteine - Fasting ( 03/12/2017 8:13 AM) Component Value Ref Range Homocysteine 11.8 5.1 - 15.4 umol/L Specimen Performing Laboratory Blood - [place], [address] [address] Narrative Fasting Hemoglobin A1c - Fasting (03/12/2017 8:13 AM) Component Value Ref Range Hemoglobin A1C 5.6 4.3 - 6.1 % Specimen Performing Laboratory Blood - [place], [address] [address] Narrative Fasting Creatine Kinase (CK), Total and MB (03/12/2017 8:13 AM)Only the most recent of2 resultswithin the time period is included. Component Value Ref Range Total CK 59 29 - 200 U/L CK-MB 1.0 0.0 - 6.6 ng/mL MB Relative Index 1.7 % Specimen Performing Laboratory Blood - [place], [address] [address] Narrative CK-MB Reference Range: <6.7Normal 6.7-10.0Borderline >10.0 Abnormal Fasting Fasting Fasting lipid panel (03/12/2017 8:13 AM) Component Value Ref Range Triglycerides 151 mg/dL Cholesterol 147 mg/dL HDL 29 mg/dL LDL Calculated 88 mg/dL Specimen Performing Laboratory Blood - [place], [address] [address] Narrative Triglyceride Reference Range: Low Risk <150 Chhrtfjkgh925-683 High Risk 200-499 Very High Risk>=500 Cholesterol Reference Range: Low Risk <200 Cbgxfbdile810-105 High Risk>240 HDL Cholesterol Reference Range: Low Risk >=60 High Risk <40 LDL Cholesterol Reference Range: Optimal<100 Near Iydvgiw124-978 Vtxaqoihll552-860 Sdbn439-497 Very High >=190 Fasting Carotid doppler bilateral (03/12/2017 6:19 AM) Component Value Ref Range Ejection Fraction Specimen Performing Laboratory [facility] ECHO [facility]ART[facility] Imp[facility] Right Impression 1. There is <50% [...] Demographics Patient Name JEAN,Date of Study2017 RADHA [id number] Age67 Visit Number [id number] Gender Male Accession Number [id number] Date of Birth1950 [facility] Room [id number] Physician Bella PlazaInterpreting Elaine Higginbotham MD, VI Procedure Type of Study: Cerebral: Carotid, CAROTID DOPPLER, BILATERAL. Indications for Study:Stroke. Blood Pressure:Right arm 116/68 mmHg.Left arm 123/73 mmHg. Patient Status:Routine. Study Location:Portable. Technical Quality:Adequate visualization. Risk Factors History of Disease + + +--------+ !Diagnosis !Date!Comments! + + +--------+ !History/Risk Factors: !03/12/2017!Stroke! + + +--------+ Procedure Note Interface, External Ris In - 03/12/2017 7:32 AM [facility] - Carotid Duplex Study Demographics Patient Name JEAN, Date of Study 03/12/2017 RADHA Age 67 Visit Number [id number] Gender Male Accession Number [id number] Date of 1950 [facility] Room Number 7518 Physician Envelope Cutter Vangie Plaza Interpreting Cristobal Perez Hazel [...] ng/mL Specimen Performing Laboratory Blood - [place], [address] [address] TSH/Free T4 If Indicated (03/11/2017 11:41 PM) Component Value Ref Range TSH 2.01 0.35 - 4.94 uIU/mL Specimen Performing Laboratory Blood - Arm, [address] [address] Prothrombin time/INR (03/11/2017 11:41 PM) Component Value Ref Range Protime 17.2 (H) 11.7 - 14.7 seconds INR 1.4 <=5.9 Specimen Performing Laboratory Blood - Arm, [address] [address] Narrative RECOMMENDED COUMADIN/WARFARIN INR THERAPY RANGES STANDARD DOSE: 2.0 - 3.0 Includes: PROPHYLAXIS for venous thrombosis, systemic embolization; TREATMENT for venous thrombosis and/or pulmonary embolus. HIGH RISK: Target INR is 2.5-3.5 for patients with mechanical heart valves. after 06/25/2016
--- NOTE | 2017-06-26 14:18 | EDPHYS ---
Physician Documentation [facility] Name: Maurice Morfin Age: 67 yrs Sex: Male : 1950 Arrival Date: 06/26/2017 Time: 13:29 Bed 24 Private MD: Yung Thomas ED Physician Richi Castellon HPI: 06/26 14:06 This 67 yrs old Male presents to ER via Wheelchair with complaints of Back ps1 Pain, Leg Pain. 14:06 The patient presents with pain that is acute, with no known mechanism of injury. The ps1 symptoms are located in the low back. Onset: The symptoms/episode began/occurred yesterday. right leg to foot. Associated signs and symptoms: The patient has no apparent associated signs or symptoms, Pertinent negatives: abdominal pain, fever, numbness, tingling, urinary retention, weakness. feels like spasm in back.. Historical: - Allergies: 13:33 NKDA; la1 - PMHx: 13:33 Cholelithiasis; COPD; CVA; Dementia; enlarged prostate; Hernia; Hypertension; PR; la1 - PSHx: 14:27 PACEMAKER; kr2 - Immunization history:: Adult Immunizations up to date. - Social history:: Smoking status: Patient uses tobacco products, smokes one-half pack cigarettes per day. ROS: 14:06 Constitutional: Negative for fever, chills, and weight loss, Eyes: Negative for injury, ps1 pain, redness, and discharge, ENT: Negative for injury, pain, and discharge, Cardiovascular: Negative for chest pain, palpitations, and edema, Respiratory: Negative for shortness of breath, cough, wheezing, and pleuritic chest pain, Abdomen/GI: Negative for abdominal pain, nausea, vomiting, diarrhea, and constipation. 14:06 MS/Extremity: Negative for injury and deformity, Skin: Negative for injury, rash, and discoloration, Neuro: Negative for headache, weakness, numbness, tingling, and seizure. 14:06 Back: Positive for decreased range of motion, pain with movement, radiated pain. 14:06 : Negative for urinary symptoms, difficulty urinating, bladder incontinence. Exam: 14:06 Constitutional: This is a well developed, well nourished patient who is awake, alert, ps1 and in no acute distress. Head/Face: Normocephalic, atraumatic. Eyes: Pupils equal round and reactive to light, extra-ocular motions intact. Lids and lashes normal. Conjunctiva and sclera are non-icteric and not injected. ENT: Nares patent. No nasal discharge, no septal abnormalities noted. Tympanic membranes are normal and external auditory canals are clear. Oropharynx with no redness, swelling, or masses, exudates, or evidence of obstruction, uvula midline. Mucous membranes moist. Chest/axilla: Normal chest wall appearance and motion. Nontender with no deformity. No lesions are appreciated. Cardiovascular: Regular rate and rhythm. No gallops, murmurs, or rubs. Normal PMI, no JVD. No pulse deficits. Respiratory: Lungs have equal breath sounds bilaterally, clear to auscultation and percussion. No rales, rhonchi or wheezes noted. No increased work of breathing, no retractions or nasal flaring. Abdomen/GI: Soft, non-tender, with normal bowel sounds. No distension or tympany. No guarding or rebound. No evidence of tenderness throughout. 14:06 Neuro: Awake and alert, GCS 15, oriented to person, place, time, and situation. Cranial nerves II-XII grossly intact. Sensory grossly intact. Psych: Awake, alert, with orientation to person, place and time. Behavior, mood, and affect are within normal limits. 14:06 Back: pain, that is mild, ROM is painful, normal spinal alignment noted, vertebral tenderness, is not appreciated, muscle spasm, is appreciated in the right low back. Vital Signs: 13:33 BP 139 / 82; Pulse 89; Resp 16; Temp 98.0(TE); Pulse Ox 100% on R/A; Weight 70.31 kg; la1 Height 5 ft. 9 in. (175.26 cm); 13:33 Body Mass Index 22.89 (70.31 kg, 175.26 cm) la1 MDM: 14:06 Patient medically screened. ps1 14:06 Data reviewed: vital signs, nurses notes. ED course: pain tolerable and able to ps1 ambulate. exam consistent with sciatica pain. Atraumatic. Not immunocompromised. No saddle signs. No hx of IVDA. Good pulses in feet with normal appearance. Will discharge with follow up with Dr. Quevedo and PCP for further diagnostic testing. Home with anaprox, medrol, and robaxin. . Administered Medications: No medications were administered Disposition: 06/26/17 14:17 Discharged to Home. Impression: Lumbago with sciatica, right side. - Condition is Stable. - Discharge Instructions: Sciatica. - Prescriptions for Anaprox 275 mg Oral Tablet - take 1 tablet by ORAL route every 8 hours As needed; 30 tablet. Robaxin 500 mg Oral Tablet - take 2 tablet by ORAL route every 6 hours As needed; 40 tablet. Medrol (Abner) 4 mg Oral Tablets, Dose Pack - take 1 tablet by ORAL route as directed - follow package instructions; 1 packet. - Medication Reconciliation Form, Thank You Letter, Antibiotic Education, Prescription Opioid Use form. - Follow up: Yung Thomas MD; When: As needed; Reason: Recheck today's complaints, Continuance of care, Re-evaluation by your physician. Follow up: Private Physician; When: as needed with Baradhi for consideration of arterial US/COREY 2/2 history of vasculopathy. ; Reason: Further diagnostic work-up. Follow up: Emergency Department; When: As needed; Reason: Fever > 102 F, Worsening of condition. - Problem is new. - Symptoms are unchanged. Signatures: Steve Johnson, RN RN la1 Allyssa Dickens RN RN kr2 Richi Castellon MD MD ps1
--- NOTE | 2017-06-26 14:18 | ER ---
Nurse's Notes [facility] Name: Maurice Morfin Age: 67 yrs Sex: Male : 1950 Arrival Date: 06/26/2017 Time: 13:29 Bed 24 Private MD: Yung Thomas Diagnosis: Lumbago with sciatica, right side Presentation: 06/26 13:32 Presenting complaint: Patient states: I have pain in my right lower back that radiates la1 down my right leg since this morning, no known injury. Transition of care: patient was not received from another setting of care. Onset of symptoms was June 26, 2017. Initial Sepsis Screen: Does the patient meet any 2 criteria? No. Patient's initial sepsis screen is negative. Does the patient have a suspected source of infection? No. Patient's initial sepsis screen is negative. Care prior to arrival: None. 13:32 Method Of Arrival: Wheelchair la1 13:32 Acuity: WAYLON 4 la1 Historical: - Allergies: 13:33 NKDA; la1 - PMHx: 13:33 Cholelithiasis; COPD; CVA; Dementia; enlarged prostate; Hernia; Hypertension; FL; la1 - PSHx: 14:27 PACEMAKER; kr2 - Immunization history:: Adult Immunizations up to date. - Social history:: Smoking status: Patient uses tobacco products, smokes one-half pack cigarettes per day. Screenin:25 Abuse screen: Denies threats or abuse. Denies injuries from another. Nutritional kr2 screening: No deficits noted. Tuberculosis screening: No symptoms or risk factors identified. Fall Risk Ambulatory Aid- Crutches/Cane/Walker (15 pts). Assessment: 14:23 General: Appears in no apparent distress. comfortable, well groomed, well developed, kr2 well nourished, Behavior is calm, cooperative, appropriate for age. Pain: Complains of pain in right low back Pain radiates to right leg Pain currently is 5 out of 10 on a pain scale. Quality of pain is described as aching, sharp. Neuro: Level of Consciousness is awake, alert, obeys commands, Oriented to person, place, time, situation, Appropriate for age Gait is steady with cane. Intact. Cardiovascular: Capillary refill < 3 seconds in bilateral fingers Patient's skin is warm and dry. Respiratory: Airway is patent Respiratory effort is even, unlabored, Respiratory pattern is regular, symmetrical. GI: Abdomen is round non-distended. Derm: Skin is intact, is healthy with good turgor, Skin is pink, warm \T\ dry. Musculoskeletal: Circulation, motion, and sensation intact. Vital Signs: 13:33 BP 139 / 82; Pulse 89; Resp 16; Temp 98.0(TE); Pulse Ox 100% on R/A; Weight 70.31 kg; la1 Height 5 ft. 9 in. (175.26 cm); 13:33 Body Mass Index 22.89 (70.31 kg, 175.26 cm) la1 ED Course: 13:29 Patient arrived in ED. as 13:29 Yung Thomas MD is Private Physician. as 13:33 Triage completed. la1 13:34 Arm band placed on left wrist. la1 13:43 Richi Castellon MD is Attending Physician. ps1 13:55 Allyssa Dickens RN is Primary Nurse. kr2 14:15 Yung Thomas MD is Referral Physician. ps1 14:15 Patient has correct armband on for positive identification. Bed in low position. Call kr2 light in reach. Door closed. Head of bed elevated. 14:27 No provider procedures requiring assistance completed. Patient did not have IV access kr2 during this emergency room visit. Administered Medications: No medications were administered Outcome: 14:17 Discharge ordered by MD. ps1 14:27 Discharged to home ambulatory, with family. kr2 14:27 Condition: good 14:27 Discharge instructions given to patient, family, Instructed on discharge instructions, follow up and referral plans. medication usage, Demonstrated understanding of instructions, follow-up care, medications, Prescriptions given X 3. 14:28 Patient left the ED. kr2 Signatures: Adri Xiao Lee RN RN la1 Allyssa Dickens, JAVAN RN kr2 Richi Castellon MD MD ps1 Corrections: (The following items were deleted from the chart) 13:33 13:32 Acuity: WAYLON 3 la1 la1
[2017-06-26 14:37] VITALS: BP 139/82; TEMP 98; O2SAT 100
== END 2017-06-26 14:28 | disposition home or self-care (01) ==
LOC: ER 13:28
DX: M54.41 Lumbago with sciatica, right side (principal); F17.210 Nicotine dependence, cigarettes, uncomplicated
CPT/HCPCS: 99282

== ENCOUNTER 2017-07-09 12:57 | Observation (INO) | payer OTHER ==
--- OUTSIDE RECORDS SUMMARY | 2017-07-09 12:59 | XMS REPORT | Clinical Summary ---
:1950 Demographics Address [address] [place] [address] Home Phone Mobile Phone Preferred Language Kyrgyz Marital Status Unknown Yarsanism Affiliation Unknown Race White Ethnic Group Not or Author Organization [facility] Address [address] [place] [address] Phone Support Name Relationship Address Phone Mami Pena [address] [place] [address] Unavailable Naturalson 11 [address] [place] [address] Care Team Providers Name Role Phone Unavailable [...] prior to 03/12 arrival Acute ischemic stroke ([facility]) 03/11/2017 HLD (hyperlipidemia) 01/17/2016 Peripheral vascular disease ([facility]) 01/14/2016 Postoperative anemia 01/14/2016 Coronary artery disease involving [place] coronary artery 01/10/2016 PAD (peripheral artery disease) ([facility]) 01/10/2016 HTN (hypertension) 01/10/2016 Iliac artery stenosis, bilateral ([facility]) 01/10/2016 Unstable angina ([facility]) 01/10/2016 COPD (chronic obstructive pulmonary disease) ([facility]) 01/10/2016 Tobacco abuse 01/10/2016 ACS (acute coronary syndrome) ([facility]) 01/10/2016 Encounters Date Type Specialty Care Team Description 03/11/2017 - Hospital Encounter General Internal Corbin Garcia Acute ischemic 03/14/2017 Medicine MD Doug stroke Stephanie Lugo ([facility]);Received MD Addie tissue plasminogen activator (t-PA) less than 24 hours prior to arrival;Essential hypertension;Periph eral vascular disease ([facility]);Tobacco abuse;Tobacco abuse counseling after 07/08/2016 Social History Tobacco Use Types Packs/Day Years Used Date Current Every Day Smoker Cigarettes 0.5 50 Smokeless Tobacco: Never Used Tobacco Cessation: Ready to Quit: No; Counseling Given: No Comments: 5-6 cigarettes a day Alcohol Use Drinks/Week oz/Week Comments No Sex Assigned at Date Recorded Not on file Last Filed Vital Signs Vital Sign Reading Time Taken Blood Pressure 119/65 03/14/2017 7:15 AM CAREER SERVICES ASSISTANT Pulse 60 03/14/2017 7:15 AM CAREER SERVICES ASSISTANT Temperature 35.8 C (96.4 F) 03/14/2017 7:15 AM CAREER SERVICES ASSISTANT Respiratory Rate 17 03/14/2017 7:15 AM CAREER SERVICES ASSISTANT Oxygen Saturation 96% 03/14/2017 7:15 AM CAREER SERVICES ASSISTANT Inhaled Oxygen Concentration - - Weight 70.4 kg (155 lb 3.3 oz) 03/11/2017 11:00 PM CAREER SERVICES ASSISTANT Height 172.7 cm (5' 8") 03/11/2017 11:00 PM CAREER SERVICES ASSISTANT Body Mass Index 23.6 03/11/2017 11:00 PM CAREER SERVICES ASSISTANT Plan of Treatment Health Maintenance Due Date Last Done Comments INFLUENZA VACCINE 12/06/2017 Implants Implanted Type Area Rubber Mold Maker Device Expiration Model / Identifier Date Serial / Lot Grft Eptfe-Heparin Rng [id number] - [id number] Graft/Pa N/A: MRAIELENA PEREZE & 09/01/2019 [id number] / Implanted: Qty: 1 on 01/13/2016 by Oniel Smith MD [facility] Arterial ASSC: [facility] [id number] / Results ARRYTHMIA IMPLANT REPORT - SCAN [...] - 1 % Specimen Performing Laboratory Blood [address] [address] CBC with platelet count + automated diff (03/14/2017 4:53 AM)Only the most recent of4 resultswithin the time period is included. Specimen Performing Laboratory Blood Narrative The following orders were created for panel order CBC with platelet count + automated diff. Procedure Abnormality Status --------- ------ CBC with platelet count ...[[id number]]AbnormalFinal result Please view results for these tests [...] DIALYSIS PATIENTS. Specimen Performing Laboratory Blood [facility] [address] [address] ECHOCARDIOGRAM REPORT - SCAN (03/12/2017 4:57 PM)CT [...] MD Report Verified Date/Time:03/12/2017 15:31:17 Reading Location: [address] Neuro Reading Room Procedure Note Interface, External Ris In - 03/12/2017 3:33 PM CAREER SERVICES ASSISTANT FINAL REPORT CT head without contrast 03/12/2017 [...] Report Verified Date/Time: 03/12/2017 15:31:17 Reading Location: [facility] C013V Neuro Reading Room Troponin I (03/12/2017 2:28 PM)Only the most recent of3 resultswithin the time period is included. Component Value Ref Range Troponin I 0.02 0.00 - 0.03 ng/mL Specimen Performing Laboratory Blood - Arm, [place] [address] Narrative Troponin I (TnI) levels must be [...] lead (03/12/2017 2:16 PM) Specimen Performing Laboratory GE MUSE Narrative Ventricular Rate 60 BPM Atrial Rate 60 BPM P-R Interval 138 ms QRS Duration 74 ms Q-T Interval 414 ms QTC Calculation(Bazett) 414 ms P [place] -18 degrees R [place] 9 degrees T [place] 68 degrees Electronic atrial pacemaker ST abnormality, possible digitalis effect Abnormal ECG No previous ECGs available Confirmed by Jasmeet HAIDER MICHAEL ([id number]) on 03/13/2017 9:39:18 AM Procedure Note Interface, External Ris In - 03/13/2017 9:39 AM CAREER SERVICES ASSISTANT Ventricular Rate 60 BPM Atrial Rate 60 BPM P-R Interval 138 ms QRS Duration 74 ms Q-T Interval 414 ms QTC Calculation(Bazett) 414 ms P [place] -18 degrees R [place] 9 degrees T [place] 68 degrees Electronic atrial pacemaker ST abnormality, possible digitalis effect Abnormal ECG No previous ECGs available Confirmed by Jasmeet HAIDER MICHAEL ([id number]) on 03/13/2017 9:39:18 AM 2D Echo W/Doppler(CW/PW/Color) (03/12/2017 10:53 AM) Component Value Ref Range Ejection Fraction Specimen Performing Laboratory [facility] ECHO HEARTLAB [facility] CPACS Narrative Transthoracic Echocardiography Report (TTE) Demographics Patient Name Tyron PENA of Study 03/12/2017 [id number] GenderMale Visit Number [id number] Chuck [id number] Number [id number] Number Date of Birth1950 Referring Physician Corbin Garcia Age67 year(s) Database Consultant Kristopher Muniz MD Physician Fellow CHLOE Melton Procedure Type of Study TTE procedure:2DECHO W DOPPLER(CW/PW/COLOR) Indications:Stroke . Clinical History COPD,CVA,DEMENTIA,ENLARGED PROSTATE,HERNIA CEREBRI,HTN,[place],SMOKING Height: 68 inches Weight: 70.31 kg (155 [...] External Ris In - 03/12/2017 4:15 PM CAREER SERVICES ASSISTANT Transthoracic Echocardiography Report (TTE) Demographics Patient Name MAMI PENA Date of Study 03/12/2017 Gender Male Visit Number [id number] Race Room Number 7518 Number Date of 1950 Referring Physician Corbin Garcia Age 67 year(s) Database Consultant Kristopher Engle Interpreting Prosper Muniz MD Physician Fellow CHLOE Melton Procedure Type of Study TTE procedure:2DECHO W DOPPLER(CW/PW/COLOR) Indications:Stroke . Clinical History COPD,CVA,DEMENTIA,ENLARGED PROSTATE,HERNIA CEREBRI,HTN,[place],SMOKING Height: 68 inches Weight: 70.31 kg (155 [...] MD Report Verified Date/Time:03/12/2017 10:06:57 Reading Location: [facility] Radiology Reading Room Procedure Note Interface, External Ris In - 03/12/2017 10:09 AM CAREER SERVICES ASSISTANT FINAL REPORT Two frontal chest images Discussion: [...] Report Verified Date/Time: 03/12/2017 10:06:57 Reading Location: [facility] Radiology Reading Room PHERAL VASCULAR REPORT - SCAN (03/12/2017 8:20 AM)Homocysteine - Fasting ( 03/12/2017 8:13 AM) Component Value Ref Range Homocysteine 11.8 5.1 - 15.4 umol/L Specimen Performing Laboratory Blood - [place], [address] [address] Narrative Fasting Hemoglobin A1c - Fasting (03/12/2017 8:13 AM) Component Value Ref Range Hemoglobin A1C 5.6 4.3 - 6.1 % Specimen Performing Laboratory Blood - [place], [address] [address] Narrative Fasting Creatine Kinase (CK), Total and MB (03/12/2017 8:13 AM)Only the most recent of2 resultswithin the time period is included. Component Value Ref Range Total CK 59 29 - 200 U/L CK-MB 1.0 0.0 - 6.6 ng/mL MB Relative Index 1.7 % Specimen Performing Laboratory Blood - [place], [address] [address] Narrative CK-MB Reference Range: <6.7Normal 6.7-10.0Borderline >10.0 Abnormal Fasting Fasting Fasting lipid panel (03/12/2017 8:13 AM) Component Value Ref Range Triglycerides 151 mg/dL Cholesterol 147 mg/dL HDL 29 mg/dL LDL Calculated 88 mg/dL Specimen Performing Laboratory Blood - [place], [address] [address] Narrative Triglyceride Reference Range: Low Risk <150 [id number] High Risk 200-499 Very High Risk>=500 Cholesterol Reference Range: Low Risk <200 [id number] High Risk>240 HDL Cholesterol Reference Range: Low Risk >=60 High Risk <40 LDL Cholesterol Reference Range: Optimal<100 Near [id number] Very High >=190 Fasting Carotid doppler bilateral (03/12/2017 6:19 AM) Component Value Ref Range Ejection Fraction Specimen Performing Laboratory [facility]CHO [facility] Impressions Right Impression 1. There is <50% [...] Demographics Patient Name JEAN,Date of Study2017 RADHA [id number] Age67 Visit Number [id number] Gender Male Accession Number [id number] Date of Birth1950 [facility] Room [id number] Physician Elaine Garcia MD, RPVI Procedure Type of Study: Cerebral: Carotid, CAROTID DOPPLER, BILATERAL. Indications for Study:Stroke. Blood Pressure:Right arm 116/68 mmHg.Left arm 123/73 mmHg. Patient Status:Routine. Study Location:Portable. Technical Quality:Adequate visualization. Risk Factors History of Disease + + +--------+ !Diagnosis !Date!Comments! + + +--------+ !History/Risk Factors: !03/12/2017!Stroke! + + +--------+ Procedure Note Interface, External Ris In - 03/12/2017 7:32 AM CAREER SERVICES ASSISTANT PV LAB - Carotid Duplex Study Demographics Patient Name JEAN, Date of Study 03/12/2017 RADHA Age 67 Visit Number [id number] Gender Male Accession Number [id number] Date of 1950 Referring Corbin Garcia Room Number 7518 Physician Database Consultant Vangie Plaza Interpreting Cristobal Perez T Physician , RPVI Procedure Type of Study: Cerebral: Carotid, CAROTID [...] ng/mL Specimen Performing Laboratory Blood - [place], [address] [address] TSH/Free T4 If Indicated (03/11/2017 11:41 PM) Component Value Ref Range TSH 2.01 0.35 - 4.94 uIU/mL Specimen Performing Laboratory Blood - [place], [address] [address] Prothrombin time/INR (03/11/2017 11:41 PM) Component Value Ref Range Protime 17.2 (H) 11.7 - 14.7 seconds INR 1.4 <=5.9 Specimen Performing Laboratory Blood - [place], [address] [address] Narrative RECOMMENDED COUMADIN/WARFARIN INR THERAPY RANGES STANDARD DOSE: 2.0 - 3.0 Includes: PROPHYLAXIS for venous thrombosis, systemic embolization; TREATMENT for venous thrombosis and/or pulmonary embolus. HIGH RISK: Target INR is 2.5-3.5 for patients with mechanical heart valves. after 07/08/2016
--- OUTSIDE RECORDS SUMMARY | 2017-07-09 13:00 | XMS REPORT ---
:1950 Demographics Address [address] [place] [address] Email Address NONE Preferred Language Unknown Marital Status Unknown Sabianism Affiliation Unknown Race Unknown Additional Race(s) Unavailable Ethnic Group Unknown [facility] Address [address] [place] [address] Care Team Providers Name Role Phone MECCA STERLING Unavailable Unavailable Problems This patient has no known problems. Allergies, Adverse Reactions, Alerts This patient has no known allergies or adverse reactions. Medications This patient has no known medications. Results Test Description Test Time Test Comments Text Results Atomic Results Result Comments BASIC METABOLIC PANEL 2017-03-14 07:51:00 Test Item Value Reference Range Comments SODIUM (BEAKER) (test 136 meq/L 136-145 tify=697) POTASSIUM (BEAKER) (test 4.0 meq/L 3.5-5.1 vxbh=023) CHLORIDE (BEAKER) (test 106 meq/L 98-107 zgmd=035) CO2 (BEAKER) (test toez=213) 23 meq/L 22-29 BLOOD UREA NITROGEN (BEAKER) 15 mg/dL 7-21 (test awvu=571) CREATININE (BEAKER) (test 0.92 mg/dL 0.57-1.25 iuli=952) GLUCOSE RANDOM (BEAKER) 92 mg/dL 70-105 (test vnvc=932) CALCIUM (BEAKER) (test 8.7 mg/dL 8.4-10.2 egbp=817) EGFR (BEAKER) (test 82 mL/min/1.73 sq m ESTIMATED GFR IS NOT ghjh=1643) ACCURATE CREATININE CLEARANCE IN PREDICTING GLOMERULAR FILTRATION RATE. ESTIMATED GFR IS NOT APPLICABLE FOR DIALYSIS PATIENTS. CBC W/PLT COUNT & AUTO [id number] 05:55:00 Test Item Value Reference Range Comments WHITE BLOOD CELL COUNT (BEAKER) (test nugr=644) 5.9 K/ L 3.5-10.5 RED BLOOD CELL COUNT (BEAKER) (test xsih=967) 4.25 M/ L 4.63-6.08 HEMOGLOBIN (BEAKER) (test fxsx=393) 12.3 GM/DL 13.7-17.5 HEMATOCRIT (BEAKER) (test jzcu=064) 37.8 % 40.1-51.0 MEAN CORPUSCULAR VOLUME (BEAKER) (test kofv=611) 88.9 fL 79.0-92.2 MEAN CORPUSCULAR HEMOGLOBIN (BEAKER) (test 28.9 pg 25.7-32.2 ugqk=370) MEAN CORPUSCULAR HEMOGLOBIN CONC (BEAKER) (test 32.5 GM/DL 32.3-36.5 cvau=902) RED CELL DISTRIBUTION WIDTH (BEAKER) (test 15.9 % 11.6-14.4 lswc=853) PLATELET COUNT (BEAKER) (test kavs=071) 173 K/CU MM 150-450 MEAN PLATELET VOLUME (BEAKER) (test irsy=007) 11.5 fL 9.4-12.4 NUCLEATED RED BLOOD CELLS (BEAKER) (test 0 /100 WBC 0-0 ssvj=279) NEUTROPHILS RELATIVE PERCENT (BEAKER) (test 48 % cqmj=821) LYMPHOCYTES RELATIVE PERCENT (BEAKER) (test 34 % ckaj=635) MONOCYTES RELATIVE PERCENT (BEAKER) (test 12 % xawt=194) EOSINOPHILS RELATIVE PERCENT (BEAKER) (test 4 % fowf=762) BASOPHILS RELATIVE PERCENT (BEAKER) (test 2 % dzsg=149) NEUTROPHILS ABSOLUTE COUNT (BEAKER) (test 2.85 K/ L 1.78-5.38 atsm=429) LYMPHOCYTES ABSOLUTE COUNT (BEAKER) (test 2.02 K/ L 1.32-3.57 ykfn=557) MONOCYTES ABSOLUTE COUNT (BEAKER) (test 0.68 K/ L 0.30-0.82 uzlj=208) EOSINOPHILS ABSOLUTE COUNT (BEAKER) (test 0.25 K/ L 0.04-0.54 vyez=609) BASOPHILS ABSOLUTE COUNT (BEAKER) (test 0.09 K/ L 0.01-0.08 kivf=643) IMMATURE GRANULOCYTES-RELATIVE PERCENT (BEAKER) 1 % 0-1 (test ioqk=7946) CBC W/PLT COUNT & AUTO [id number] 05:15:00 Test Item Value Reference Range Comments WHITE BLOOD CELL COUNT (BEAKER) (test hhhd=343) 5.4 K/ L 3.5-10.5 RED BLOOD CELL COUNT (BEAKER) (test pbde=323) 4.34 M/ L 4.63-6.08 HEMOGLOBIN (BEAKER) (test hyec=685) 12.5 GM/DL 13.7-17.5 HEMATOCRIT (BEAKER) (test bhat=557) 39.0 % 40.1-51.0 MEAN CORPUSCULAR VOLUME (BEAKER) (test miab=394) 89.9 fL 79.0-92.2 MEAN CORPUSCULAR HEMOGLOBIN (BEAKER) (test 28.8 pg 25.7-32.2 ulyv=667) MEAN CORPUSCULAR HEMOGLOBIN CONC (BEAKER) (test 32.1 GM/DL 32.3-36.5 djrj=520) RED CELL DISTRIBUTION WIDTH (BEAKER) (test 15.9 % 11.6-14.4 unii=753) PLATELET COUNT (BEAKER) (test djzi=831) 162 K/CU MM 150-450 MEAN PLATELET VOLUME (BEAKER) (test axqr=190) 10.6 fL 9.4-12.4 NUCLEATED RED BLOOD CELLS (BEAKER) (test 0 /100 WBC 0-0 eper=509) NEUTROPHILS RELATIVE PERCENT (BEAKER) (test 52 % ygsr=428) LYMPHOCYTES RELATIVE PERCENT (BEAKER) (test 31 % blcl=908) MONOCYTES RELATIVE PERCENT (BEAKER) (test 11 % tbfm=072) EOSINOPHILS RELATIVE PERCENT (BEAKER) (test 4 % irup=643) BASOPHILS RELATIVE PERCENT (BEAKER) (test 2 % oqlp=773) NEUTROPHILS ABSOLUTE COUNT (BEAKER) (test 2.78 K/ L 1.78-5.38 dikm=309) LYMPHOCYTES ABSOLUTE COUNT (BEAKER) (test 1.69 K/ L 1.32-3.57 lzgj=466) MONOCYTES ABSOLUTE COUNT (BEAKER) (test 0.59 K/ L 0.30-0.82 sxxh=732) EOSINOPHILS ABSOLUTE COUNT (BEAKER) (test 0.21 K/ L 0.04-0.54 cbmo=032) BASOPHILS ABSOLUTE COUNT (BEAKER) (test 0.09 K/ L 0.01-0.08 saqj=717) IMMATURE GRANULOCYTES-RELATIVE PERCENT (BEAKER) 1 % 0-1 (test ifac=8378) CT, BRAIN, WITHOUT [id number] 15:31:00FINAL REPORT CT head without contrast 03/12/2017 [...] Paez Verified Date/Time: 03/12/2017 15:31:17 Reading Location: [address] Neuro Reading Room TROPONIN [id number] 15:26:00 Test Item Value Reference Range Comments TROPONIN I (KYARA) (test dtse=104) 0.02 ng/mL 0.00-0.03 Troponin I (TnI) levels [...] acidosis, acute neurological disease, and persistent tachyarrhythmia.HEMOGLOBIN [id number] 12:38:00 Test Item Value Reference Range Comments HEMOGLOBIN A1C (KYARA) (test zxrn=694) 5.6 % 4.3-6.1 FastingRAD, CHEST, 1 VIEW, NON [id number] 10:06:00Reason for exam:->rule out pneumoniaShould this be [...] 10:06:57 Reading Location: [facility] [address] Radiology Reading Room [id number] 09:08:00 Test Item Value Reference Range Comments HOMOCYSTEINE (BEAKER) (test ugce=752) 11.8 umol/L 5.1-15.4 FastingCREATINE KINASE (CK), TOTAL AND [id number] 08:55:00 Test Item Value Reference Range Comments CREATINE KINASE TOTAL (BEAKER) (test gwib=659) 59 U/L 29-200 CREATINE KINASE-MB (BEAKER) (test varg=316) 1.0 ng/mL 0.0-6.6 CREATINE KINASE-MB INDEX (BEAKER) (test frpg=198) 1.7 % CK-MB Reference Range:<6.7 Normal6.7-10.0 Borderline>10.0 AbnormalFastingFastingTROPONIN [id number] 08:55:00 Test Item Value Reference Range Comments TROPONIN I (BEAKER) (test pact=024) < ng/mL 0.00-0.03 Troponin I (TnI) levels [...] acidosis, acute neurological disease, and persistent tachyarrhythmia.FastingLIPID [id number] 08:48:00 Test Item Value Reference Range Comments TRIGLYCERIDES (BEAKER) (test gsbj=837) 151 mg/dL CHOLESTEROL (BEAKER) (test roxm=664) 147 mg/dL HDL CHOLESTEROL (BEAKER) (test udto=099) 29 mg/dL LDL CHOLESTEROL CALCULATED (BEAKER) (test 88 mg/dL rgno=403) Triglyceride Reference Range: Low Risk <150 Borderline 150- 199 High Risk 200-499 Very High Risk >=500Cholesterol Reference Range: Low Risk <200 Borderline 200-239 High Risk > 240HDL Cholesterol Reference Range: Low Risk >=60 High Risk <40LDL Cholesterol Reference Range: Optimal <100 Near Optimal 100-129 Borderline 130-159 High 160-189 Very High >=190 FastingBASIC METABOLIC [id number] 08:48:00 Test Item Value Reference Range Comments SODIUM (BEAKER) (test 136 meq/L 136-145 puaj=576) POTASSIUM (BEAKER) (test 4.4 meq/L 3.5-5.1 ldon=590) CHLORIDE (BEAKER) (test 104 meq/L 98-107 yemy=742) CO2 (BEAKER) (test 25 meq/L 22-29 lsbo=342) BLOOD UREA NITROGEN 15 mg/dL 7-21 (BEAKER) (test ehzx=196) CREATININE (BEAKER) (test 0.87 mg/dL 0.57-1.25 ygol=742) GLUCOSE RANDOM (BEAKER) 102 mg/dL 70-105 (test tpef=002) CALCIUM (BEAKER) (test 8.9 mg/dL 8.4-10.2 vfqh=797) EGFR (BEAKER) (test 87 mL/min/1.73 sq m ESTIMATED GFR IS NOT lmhb=0958) ACCURATE CREATININE CLEARANCE IN PREDICTING GLOMERULAR FILTRATION RATE. ESTIMATED GFR IS NOT APPLICABLE FOR DIALYSIS PATIENTS. FastingCBC W/PLT COUNT & AUTO [id number] 08:24:00 Test Item Value Reference Range Comments WHITE BLOOD CELL COUNT (BEAKER) (test ssaz=889) 5.7 K/ L 3.5-10.5 RED BLOOD CELL COUNT (BEAKER) (test iyog=746) 4.23 M/ L 4.63-6.08 HEMOGLOBIN (BEAKER) (test zzgp=742) 12.3 GM/DL 13.7-17.5 HEMATOCRIT (BEAKER) (test ruia=276) 37.9 % 40.1-51.0 MEAN CORPUSCULAR VOLUME (BEAKER) (test hvls=929) 89.6 fL 79.0-92.2 MEAN CORPUSCULAR HEMOGLOBIN (BEAKER) (test 29.1 pg 25.7-32.2 kbee=460) MEAN CORPUSCULAR HEMOGLOBIN CONC (BEAKER) (test 32.5 GM/DL 32.3-36.5 yuvg=091) RED CELL DISTRIBUTION WIDTH (BEAKER) (test 15.9 % 11.6-14.4 jqmi=635) PLATELET COUNT (BEAKER) (test mpvf=312) 156 K/CU MM 150-450 MEAN PLATELET VOLUME (BEAKER) (test vdmp=400) 10.2 fL 9.4-12.4 NUCLEATED RED BLOOD CELLS (BEAKER) (test 0 /100 WBC 0-0 udfy=613) NEUTROPHILS RELATIVE PERCENT (BEAKER) (test 47 % ozpk=948) LYMPHOCYTES RELATIVE PERCENT (BEAKER) (test 37 % uopk=331) MONOCYTES RELATIVE PERCENT (BEAKER) (test 12 % xwzm=180) EOSINOPHILS RELATIVE PERCENT (BEAKER) (test 3 % bsur=394) BASOPHILS RELATIVE PERCENT (BEAKER) (test 2 % ofdh=561) NEUTROPHILS ABSOLUTE COUNT (BEAKER) (test 2.66 K/ L 1.78-5.38 iugn=857) LYMPHOCYTES ABSOLUTE COUNT (BEAKER) (test 2.09 K/ L 1.32-3.57 lavp=118) MONOCYTES ABSOLUTE COUNT (BEAKER) (test 0.70 K/ L 0.30-0.82 xzdk=981) EOSINOPHILS ABSOLUTE COUNT (BEAKER) (test 0.15 K/ L 0.04-0.54 qzyy=923) BASOPHILS ABSOLUTE COUNT (BEAKER) (test 0.09 K/ L 0.01-0.08 cmji=711) IMMATURE GRANULOCYTES-RELATIVE PERCENT (BEAKER) 1 % 0-1 (test dkla=1662) TSH/FREE T4 IF [id number] 03:38:00 Test Item Value Reference Range Comments THYROID STIMULATING HORMONE (BEAKER) (test 2.01 uIU/mL 0.35-4.94 xwjp=425) VITAMIN B12 AND [id number] 03:38:00 Test Item Value Reference Range Comments VITAMIN B12 (BEAKER) (test mkjq=893) 1008 pg/mL 213-816 FOLATE (BEAKER) (test hiam=446) 8.4 ng/mL >=7.0 CREATINE KINASE (CK), TOTAL AND [id number] 01:03:00 Test Item Value Reference Range Comments CREATINE KINASE TOTAL (BEAKER) (test zqae=293) 66 U/L 29-200 CREATINE KINASE-MB (BEAKER) (test byvu=139) 1.4 ng/mL 0.0-6.6 CREATINE KINASE-MB INDEX (BEAKER) (test mfoa=808) 2.1 % CK-MB Reference Range:<6.7 Normal6.7-10.0 Borderline>10.0 AbnormalTROPONIN [id number] 01:03:00 Test Item Value Reference Range Comments TROPONIN I (BEAKER) (test ahmq=786) 0.02 ng/mL 0.00-0.03 Troponin I (TnI) levels [...] acute neurological disease, and persistent tachyarrhythmia.BASIC METABOLIC [id number] 00:56:00 Test Item Value Reference Range Comments SODIUM (BEAKER) (test 136 meq/L 136-145 dmbw=430) POTASSIUM (BEAKER) (test 3.9 meq/L 3.5-5.1 gmni=438) CHLORIDE (BEAKER) (test 104 meq/L 98-107 imsh=504) CO2 (BEAKER) (test 24 meq/L 22-29 tseu=312) BLOOD UREA NITROGEN 14 mg/dL 7-21 (BEAKER) (test oent=164) CREATININE (BEAKER) (test 0.87 mg/dL 0.57-1.25 elzl=665) GLUCOSE RANDOM (BEAKER) 104 mg/dL 70-105 (test bkce=862) CALCIUM (BEAKER) (test 9.2 mg/dL 8.4-10.2 xunq=721) EGFR (BEAKER) (test 87 mL/min/1.73 sq m ESTIMATED GFR IS NOT kxln=6706) ACCURATE CREATININE CLEARANCE IN PREDICTING GLOMERULAR FILTRATION RATE. ESTIMATED GFR IS NOT APPLICABLE FOR DIALYSIS PATIENTS. PROTHROMBIN [id number] 00:27:00 Test Item Value Reference Range Comments PROTIME (BEAKER) (test gmkr=626) 17.2 seconds 11.7-14.7 INR (BEAKER) (test ymax=880) 1.4 <=5.9 RECOMMENDED COUMADIN/WARFARIN INR THERAPY RANGESSTANDARD DOSE: 2.0 - 3.0 Includes: PROPHYLAXIS forvenous thrombosis, systemic embolization; TREATMENT for venous thrombosis and/or pulmonary embolus.HIGH RISK: Target INR is 2.5-3.5 for patients with mechanical heart valves.CBC W/PLT COUNT & AUTO [id number] 00:01:00 Test Item Value Reference Range Comments WHITE BLOOD CELL COUNT (BEAKER) (test ygqy=617) 8.2 K/ L 3.5-10.5 RED BLOOD CELL COUNT (BEAKER) (test kdqw=052) 4.57 M/ L 4.63-6.08 HEMOGLOBIN (BEAKER) (test xvgi=686) 13.2 GM/DL 13.7-17.5 HEMATOCRIT (BEAKER) (test ukbg=670) 40.5 % 40.1-51.0 MEAN CORPUSCULAR VOLUME (BEAKER) (test blgb=521) 88.6 fL 79.0-92.2 MEAN CORPUSCULAR HEMOGLOBIN (BEAKER) (test 28.9 pg 25.7-32.2 hqez=183) MEAN CORPUSCULAR HEMOGLOBIN CONC (BEAKER) (test 32.6 GM/DL 32.3-36.5 laer=784) RED CELL DISTRIBUTION WIDTH (BEAKER) (test 15.9 % 11.6-14.4 sxdk=440) PLATELET COUNT (BEAKER) (test ukjy=702) 198 K/CU MM 150-450 MEAN PLATELET VOLUME (BEAKER) (test mawr=730) 11.2 fL 9.4-12.4 NUCLEATED RED BLOOD CELLS (BEAKER) (test 0 /100 WBC 0-0 nkmn=054) NEUTROPHILS RELATIVE PERCENT (BEAKER) (test 57 % pytj=430) LYMPHOCYTES RELATIVE PERCENT (BEAKER) (test 28 % jgbv=664) MONOCYTES RELATIVE PERCENT (BEAKER) (test 10 % pguf=630) EOSINOPHILS RELATIVE PERCENT (BEAKER) (test 3 % ianb=259) BASOPHILS RELATIVE PERCENT (BEAKER) (test 1 % plig=193) NEUTROPHILS ABSOLUTE COUNT (BEAKER) (test 4.66 K/ L 1.78-5.38 jsvu=657) LYMPHOCYTES ABSOLUTE COUNT (BEAKER) (test 2.29 K/ L 1.32-3.57 jqmu=666) MONOCYTES ABSOLUTE COUNT (BEAKER) (test 0.81 K/ L 0.30-0.82 hmtb=834) EOSINOPHILS ABSOLUTE COUNT (BEAKER) (test 0.25 K/ L 0.04-0.54 lhty=379) BASOPHILS ABSOLUTE COUNT (BEAKER) (test 0.10 K/ L 0.01-0.08 grpf=837) IMMATURE GRANULOCYTES-RELATIVE PERCENT (BEAKER) 1 % 0-1 (test qbjv=5708)
[2017-07-09 13:54] LABS: Absolute Lymphocytes (CBC) 2.4 K/uL (0.7-4.9); Absolute Monocytes 0.8 K/uL (0.1-1.3); Absolute Neutrophil 3.7 K/uL (1.8-8.0); Eosinophils % 2.7 % (0-4.4); Hematocrit 39.6 % (39.6-49.0); Lymphocytes % 32.4 % (15.3-44.8); MCH 28.9 pg (27.0-35.0); MCV 88.5 fL (80-100); MPV 9.6 fL (7.6-11.3); Monocytes % 10.9 % (3.3-12.3); RBC Red Blood Cell Count 4.47 M/uL (4.33-5.43)
[2017-07-09] MEDS ORDERED: ONDANSETRON 4 MG/2 ML VIAL ONE (13:58)
[2017-07-09 14:01] LABS: Protime INR 1.03
--- NOTE | 2017-07-09 14:02 | RAD REPORT ---
EXAM DESCRIPTION: RAD - Chest Single View - 07/09/2017 1:56 pm CLINICAL HISTORY: COPD, nausea. COMPARISON: 06/09/2017, 05/15/2017 FINDINGS: Portable technique limits examination quality. The lungs are grossly clear. The heart is normal in size. No displaced fractures.Dual lead pacer aida ce is present. IMPRESSION: No acute intrathoracic process suspected.
[2017-07-09 14:10] LABS: Potassium 4.1 mEq/L (3.6-5.0)
[2017-07-09 14:16] LABS: Bilirubin Direct 0.1 mg/dL (0-0.2); Bilirubin Total 0.4 mg/dL (0.3-1.2); Magnesium 1.8 mg/dL (1.8-2.5); Protein, Total 7.6 g/dL (6.0-8.3)
[2017-07-09 14:17] LABS: CKMB Creatine Kinase MB 1.6 ng/ml (0.3-4.0)
[2017-07-09] MEDS ORDERED: NITROGLYCERIN 0.4 MG/TAB SL ONE (15:18)
[2017-07-09 15:36] LABS: Urine Blood TRACE (NEG); Urine Glucose NEGATIVE (NEG); Urine Protein NEGATIVE (NEG); Urine pH 6.5 (5.0-7.0)
[2017-07-09] MEDS ORDERED: MORPHINE 4 MG/ML SYR ONE (15:45)
[2017-07-09] MEDS ORDERED: ENOXAPARIN 80 MG/0.8 ML SQ ONE (15:46)
--- NOTE | 2017-07-09 15:55 | ER ---
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 13:09 Transition of care: patient was not received from another setting of care. Onset of aa5 symptoms was July 09, 2017. Initial Sepsis Screen: Does the patient meet any 2 criteria? No. Patient's initial sepsis screen is negative. Does the patient have a suspected source of infection? No. Patient's initial sepsis screen is negative. Care prior to arrival: None. 13:09 Method Of Arrival: Wheelchair aa5 13:09 Acuity: WAYLON 3 aa5 Historical: - Allergies: 13:09 NKDA; aa5 - PMHx: 13:09 Cholelithiasis; COPD; CVA; Dementia; enlarged prostate; Hernia; Hypertension; ID; aa5 - PSHx: 13:09 PACEMAKER; Heart stents; aa5 - Immunization history:: Adult Immunizations unknown. - Social history:: Smoking status: Patient/guardian denies using tobacco. Screenin:00 Abuse screen: Denies threats or abuse. Denies injuries from another. Nutritional iw screening: No deficits noted. Tuberculosis screening: No symptoms or risk factors identified. Fall Risk None identified. Assessment: 13:15 General: Appears in no apparent distress. comfortable, slender, well groomed, well kr2 developed, well nourished, Behavior is calm, cooperative, appropriate for age. Pain: Complains of pain in left breast Pain radiates to left arm Pain currently is 8 out of 10 on a pain scale. Quality of pain is described as pressure, sharp, Pain began suddenly, Is continuous. Neuro: Level of Consciousness is awake, alert, obeys commands, Oriented to person, place, time, situation. Cardiovascular: Reports chest pain, nausea, Capillary refill < 3 seconds in bilateral fingers Patient's skin is warm and dry. Rhythm is Respiratory: Airway is patent Respiratory effort is even, unlabored, Respiratory pattern is regular, symmetrical. GI: Abdomen is flat, non-distended. : No signs and/or symptoms were reported regarding the genitourinary system. EENT: Oral mucosa is moist. Derm: Skin is intact, is healthy with good turgor, Skin is pink, warm \T\ dry. Musculoskeletal: Circulation, motion, and sensation intact. 14:00 Reassessment: pt c/o increasing pain to left side of chest, 11/15, Kvng quality assurance/r&d lab technician at iw bedside to repeat EKG. 15:00 Reassessment: Patient appears in no apparent distress at this time. Patient and/or kr2 family updated on plan of care and expected duration. Pain level reassessed. Patient is alert, oriented x 3, equal unlabored respirations, skin warm/dry/pink. Provider notified Patient states symptoms have not improved. 16:01 Reassessment: Patient appears in no apparent distress at this time. Patient and/or kr2 family updated on plan of care and expected duration. Pain level reassessed. Patient is alert, oriented x 3, equal unlabored respirations, skin warm/dry/pink. 16:54 Reassessment: Patient appears in no apparent distress at this time. Patient and/or kr2 family updated on plan of care and expected duration. Pain level reassessed. Patient is alert, oriented x 3, equal unlabored respirations, skin warm/dry/pink. Patient states feeling better. 18:14 Reassessment: Patient appears in no apparent distress at this time. Patient and/or kr2 family updated on plan of care and expected duration. Pain level reassessed. Patient is alert, oriented x 3, equal unlabored respirations, skin warm/dry/pink. Patient taken to CT by bench lay out technician Patient states feeling better. Vital Signs: 13:11 BP 142 / 90; Pulse 65; Resp 16 S; Temp 97.4(TE); Pulse Ox 99% on R/A; aa5 14:53 BP 146 / 79; Pulse 65; Resp 18; Pulse Ox 97% on R/A; kr2 15:20 BP 153 / 78; Pulse 60; Resp 17; Pulse Ox 97% on R/A; kr2 15:44 Weight 70.31 kg; kr2 16:01 BP 118 / 72; Pulse 65; Resp 18; Pulse Ox 96% on R/A; kr2 16:55 BP 133 / 68; Pulse 60; Resp 17; Pulse Ox 99% on R/A; kr2 18:43 BP 132 / 65; Pulse 62; Resp 16; Pulse Ox 99% on R/A; kr2 ED Course: 12:58 Patient arrived in ED. as 13:10 Arm band placed on Patient placed in an exam room, on a stretcher. aa5 13:11 Triage completed. aa5 13:11 Pipo Kimble NP is PHCP. pm1 13:11 Maruice Up MD is Attending Physician. pm1 13:12 Allyssa Dickens RN is Primary Nurse. kr2 13:15 Patient has correct armband on for positive identification. Bed in low position. Call kr2 light in reach. Side rails up X2. Adult w/ patient. quality assurance monitor chassis on. Pulse ox on. NIBP on. Door closed. Warm blanket given. Head of bed elevated. 13:35 Missed attempt(s): 22 gauge in right antecubital area. Bleeding controlled, band aid kr2 applied, catheter tip intact. 13:40 Missed attempt(s): 22 gauge in left upper arm. Bleeding controlled, band aid applied, kr2 catheter tip intact. 13:54 Inserted saline lock: 22 gauge in left forearm, using aseptic technique. iw 13:55 X-ray completed. Portable x-ray completed in exam room. jr1 13:57 XRAY Chest (1 view) In Process Unspecified. EDMS 14:04 EKG done, by ED staff, reviewed by Pipo Kimble NP. jb1 14:57 Patient maintains SpO2 saturation greater than 95% on room air. kr2 15:54 Joaquin Biggs DO is Hospitalizing Provider. pm1 18:20 CT completed. Patient tolerated procedure well. Patient moved to CT via stretcher. in Patient moved back from CT. 18:45 No provider procedures requiring assistance completed. Patient admitted, IV remains in kr2 place. Administered Medications: 14:00 Drug: Zofran 4 mg Route: IVP; Site: left forearm; iw 15:20 Follow up: BP 153 / 78; Pulse 60 bpm; Resp 17 bpm; Pulse Ox 97% RA; Response: No kr2 adverse reaction; Nausea is decreased 15:19 Drug: Nitroglycerin 0.4 mg Route: Sublingual; kr2 15:26 Drug: Nitroglycerin 0.4 mg Route: Sublingual; kr2 15:31 Drug: Nitroglycerin 0.4 mg Route: Sublingual; kr2 15:53 Follow up: Response: No adverse reaction; Pain is unchanged, physician notified kr2 15:53 Drug: morphine 4 mg Route: IVP; Site: left forearm; kr2 16:55 Follow up: Response: No adverse reaction; Pain is decreased kr2 15:53 Drug: Lovenox 1 mg/kg Route: Sub-Q; Site: right lower abdomen; kr2 16:55 Follow up: Response: No adverse reaction kr2 Outcome: 15:54 Decision to Hospitalize by Provider. pm1 18:45 Admitted to Tele accompanied by tech, via stretcher, room 407, with chart, Report kr2 called to Justina Phillips RN 18:45 Condition: stable 18:45 Instructed on the need for admit, Demonstrated understanding of instructions. 18:47 Patient left the ED. kr2 Signatures: Dispatcher [employer] EDKvng Arora1 Shivani Mcpherson jr1 Adri Xiao Irene, RN RN iw Calderon, Audri, RN RN aa5 Pipo Kimble, ANNY PAST DUE ACCOUNTS CLERK pm1 Kendell Lewis Karey, RN RN kr2 Corrections: (The following items were deleted from the chart) 15:20 15:19 BP 153 / 78; Pulse 60 bpm; Resp 17 bpm; Pulse Ox 97% RA kr2 kr2
--- NOTE | 2017-07-09 15:55 | EDPHYS ---
Physician Documentation [facility] Name: Maurice Morfin Age: 67 yrs Sex: Male : 1950 Arrival Date: 07/09/2017 Time: 12:58 Bed 26 Private MD: ED Physician Maurice Up HPI: 07/09 14:00 This 67 yrs old Male presents to ER via Wheelchair with complaints of Chest pm1 Pain. 14:00 The patient or guardian reports chest pain that is located primarily in the anterior pm1 chest wall, left. Onset: 1 hour prior to arrival. The pain does not radiate. Associated signs and symptoms: Pertinent positives: nausea, shortness of breath, Pertinent negatives: abdominal pain, cough, diaphoresis, dizziness, near syncope, palpitations, syncope. The chest pain is described as aching, a pressure. Duration: The patient or guardian reports a single episode, that is still ongoing, and unchanged. Modifying factors: The symptoms are alleviated by nothing. the symptoms are aggravated by nothing. Severity of pain: in the emergency department the pain is a 8 / 10. The patient has experienced similar episodes in the past, a few times, today's symptoms are similar, to previous IA. The patient has not recently seen a physician, the patient's primary care provider is Dr. Thomas, Quality Control Clerk Sae. Historical: - Allergies: 13:09 NKDA; aa5 - PMHx: 13:09 Cholelithiasis; COPD; CVA; Dementia; enlarged prostate; Hernia; Hypertension; IA; aa5 - PSHx: 13:09 PACEMAKER; Heart stents; aa5 - Immunization history:: Adult Immunizations unknown. - Social history:: Smoking status: Patient/guardian denies using tobacco. ROS: 14:00 Constitutional: Negative for fever, chills, and weight loss, Eyes: Negative for injury, pm1 pain, redness, and discharge, ENT: Negative for injury, pain, and discharge, Neck: Negative for injury, pain, and swelling. 14:00 Back: Negative for injury and pain, : Negative for injury, bleeding, discharge, and swelling, MS/Extremity: Negative for injury and deformity, Skin: Negative for injury, rash, and discoloration, Neuro: Negative for headache, weakness, numbness, tingling, and seizure. 14:00 Cardiovascular: Positive for chest pain, Negative for edema, palpitations. 14:00 Respiratory: Positive for shortness of breath, Negative for cough, sputum production, wheezing. 14:00 Abdomen/GI: Positive for nausea, Negative for vomiting, diarrhea. Exam: 14:00 Constitutional: This is a well developed, well nourished patient who is awake, alert, pm1 and in no acute distress. Head/Face: Normocephalic, atraumatic. Eyes: Pupils equal round and reactive to light, extra-ocular motions intact. Lids and lashes normal. Conjunctiva and sclera are non-icteric and not injected. Cornea within normal limits. Periorbital areas with no swelling, redness, or edema. ENT: Nares patent. No nasal discharge, no septal abnormalities noted. Tympanic membranes are normal and external auditory canals are clear. Oropharynx with no redness, swelling, or masses, exudates, or evidence of obstruction, uvula midline. Mucous membranes moist. Neck: Trachea midline, no thyromegaly or masses palpated, and no cervical lymphadenopathy. Supple, full range of motion without nuchal rigidity, or vertebral point tenderness. No Meningismus. 14:00 Cardiovascular: Regular rate and rhythm with a normal S1 and S2. No gallops, murmurs, or rubs. Normal PMI, no JVD. No pulse deficits. Respiratory: Lungs have equal breath sounds bilaterally, clear to auscultation and percussion. No rales, rhonchi or wheezes noted. No increased work of breathing, no retractions or nasal flaring. Abdomen/GI: Soft, non-tender, with normal bowel sounds. No distension or tympany. No guarding or rebound. No evidence of tenderness throughout. Back: No spinal tenderness. No costovertebral tenderness. Full range of motion. Skin: Warm, dry with normal turgor. Normal color with no rashes, no lesions, and no evidence of cellulitis. MS/ Extremity: Pulses equal, no cyanosis. Neurovascular intact. Full, normal range of motion. 14:00 Chest/axilla: Inspection: normal, Palpation: crepitus, is not appreciated, tenderness, of the left breast, that partially reproduces the patient's complaints. 14:00 Neuro: Orientation: is normal, Motor: is normal, moves all fours. Vital Signs: 13:11 BP 142 / 90; Pulse 65; Resp 16 S; Temp 97.4(TE); Pulse Ox 99% on R/A; aa5 14:53 BP 146 / 79; Pulse 65; Resp 18; Pulse Ox 97% on R/A; kr2 15:20 BP 153 / 78; Pulse 60; Resp 17; Pulse Ox 97% on R/A; kr2 15:44 Weight 70.31 kg; kr2 16:01 BP 118 / 72; Pulse 65; Resp 18; Pulse Ox 96% on R/A; kr2 16:55 BP 133 / 68; Pulse 60; Resp 17; Pulse Ox 99% on R/A; kr2 18:43 BP 132 / 65; Pulse 62; Resp 16; Pulse Ox 99% on R/A; kr2 MDM: 13:13 Patient medically screened. pm1 15:51 Data reviewed: vital signs. Data interpreted: Pulse oximetry: on room air is 97 %. pm1 Interpretation: normal. Counseling: I had a detailed discussion with the patient and/or guardian regarding: the historical points, exam findings, and any diagnostic results supporting the discharge/admit diagnosis, lab results, radiology results, the need for further work-up and treatment in the hospital. 15:51 Physician consultation: MD Jones was contacted at 15:51, regarding admission, patient's pm1 condition, and will see patient in ED. 07/09 13:12 Order name: Basic Metabolic Panel; Complete Time: 15:11 pm07/09 13:12 Order name: BNP; Complete Time: 15: pm07/09 13:12 Order name: CBC with Diff; Complete Time: 15: pm07/09 13:12 Order name: Ckmb; Complete Time: 15:11 pm07/09 13:12 Order name: CPK; Complete Time: 15:11 pm07/09 13:12 Order name: LFT's; Complete Time: 15:11 pm07/09 13:12 Order name: Magnesium; Complete Time: 15:11 pm07/09 13:12 Order name: PT-INR; Complete Time: 15:11 pm07/09 13:12 Order name: Ptt, Activated; Complete Time: 15:11 pm07/09 13:12 Order name: Troponin (emerg Dept Use Only); Complete Time: 15:11 pm1 07/09 15:07 Order name: Urine Dipstick--Ancillary (enter results); Complete Time: 15:40 ag 07/09 17:17 Order name: Basic Metabolic Panel [facility] 07/09 17:17 Order name: CKMB Creatine Kinase MB [facility] 07/09 17:17 Order name: CKMB Creatine Kinase MB [facility] 07/09 13:12 Order name: XRAY Chest (1 view); Complete Time: 14:04 pm1 07/09 17:17 Order name: CKMB Creatine Kinase MB [facility] 07/09 17:17 Order name: CKMB Creatine Kinase MB [facility] 07/09 17:17 Order name: Creatine Phosphokinase [facility] 07/09 17:17 Order name: Creatine Phosphokinase [facility] 07/09 17:17 Order name: Creatine Phosphokinase [facility] 07/09 17:17 Order name: Creatine Phosphokinase [facility] 07/09 17:17 Order name: Lipid Profile [facility] 07/09 17:17 Order name: Lipid Profile [facility] 07/09 17:17 Order name: Troponin I [facility] 07/09 17:17 Order name: Troponin I [facility] 07/09 17:17 Order name: Troponin I [facility] 07/09 17:17 Order name: Troponin I [facility] 07/09 18:28 Order name: CT [facility] 07/09 13:12 Order name: EKG; Complete Time: 13:13 pm1 07/09 13:12 Order name: Cardiac monitoring; Complete Time: 13:46 pm1 07/09 13:12 Order name: EKG - Nurse/Tech; Complete Time: 13:46 pm07/09 13:12 Order name: IV Saline Lock; Complete Time: 13:46 pm07/09 13:12 Order name: Labs collected and sent; Complete Time: 13:46 pm1 07/09 13:12 Order name: O2 Per Protocol; Complete Time: 13:46 pm1 07/09 13:12 Order name: O2 Sat Monitoring; Complete Time: 13:46 pm07/09 13:12 Order name: Urine Dipstick-Ancillary (obtain specimen); Complete Time: 15:05 pm1 07/09 15:20 Order name: EKG Electrocardiogram [facility] 07/09 17:17 Order name: CONS Physician Consult [facility] 07/09 17:17 Order name: Heart Healthy [facility] 07/09 17:18 Order name: Diet Heart Healthy; Complete Time: 17:19 kr2 Administered Medications: 14:00 Drug: Zofran 4 mg Route: IVP; Site: left forearm; iw 15:20 Follow up: BP 153 / 78; Pulse 60 bpm; Resp 17 bpm; Pulse Ox 97% RA; Response: No kr2 adverse reaction; Nausea is decreased 15:19 Drug: Nitroglycerin 0.4 mg Route: Sublingual; kr2 15:26 Drug: Nitroglycerin 0.4 mg Route: Sublingual; kr2 15:31 Drug: Nitroglycerin 0.4 mg Route: Sublingual; kr2 15:53 Follow up: Response: No adverse reaction; Pain is unchanged, physician notified kr2 15:53 Drug: morphine 4 mg Route: IVP; Site: left forearm; kr2 16:55 Follow up: Response: No adverse reaction; Pain is decreased kr2 15:53 Drug: Lovenox 1 mg/kg Route: Sub-Q; Site: right lower abdomen; kr2 16:55 Follow up: Response: No adverse reaction kr2 Disposition: 07/09/17 15:54 Hospitalization ordered by Joaquin Biggs for Observation. Preliminary diagnosis is Chest pain, unspecified. - Bed requested for Telemetry/MedSurg (observation). - Status is Observation. kr2 - Condition is Stable. - Problem is new. - Symptoms have improved. UTI on Admission? No Addendum: 07/11/2017 10:55 Co-signature as Attending Physician, Maurice Up MD I agree with the assessment and w a plan of care. Signatures: Dispatcher [employer] [facility] Birgit Ragsdale RN RN iw Calderon, Audri RN RN aa5 Pipo Kimble, CHEFS CHEFS pm1 Maurice Up MD MD wa Reaves, Karey RN RN kr2 Rosy Quintero Corrections: (The following items were deleted from the chart) 07/09 17:44 15:54 Hospitalization Ordered by Joaquin Biggs DO for Observation. Preliminary eb diagnosis is Chest pain, unspecified. Bed requested for Telemetry/MedSurg (observation). Status is Observation. Condition is Stable. Problem is new. Symptoms have improved. UTI on Admission? No. pm1 18:47 17:44 07/09/2017 15:54 Hospitalization Ordered by Joaquin Biggs DO for Observation. kr2 Preliminary diagnosis is Chest pain, unspecified. Bed requested for Telemetry/MedSurg (observation). Status is Observation. Condition is Stable. Problem is new. Symptoms have improved. UTI on Admission? No. eb
--- NOTE | 2017-07-09 16:59 | P.HP ---
Certification for Inpatient Patient admitted to: Observation With expected LOS: <2 Midnights Patient will require the following post-hospital care: None Practitioner: I am a practitioner with admitting privileges, knowledge of patient current condition, hospital course, and medical plan of care. Services: Services provided to patient in accordance with Admission requirements found in Title 42 Section 412.3 of the Code of Federal Regulations Patient History Date of Service: 07/09/17 Reason for admission: chest pain History of Present Illness: 67 year old male with history of CAD, s/p pacemaker placement, hypertension,COPD ,CVA in the past who presented with one day history of substernal chest pain which started around 8 am in the morning.He described it as a sharp substernal chest pain which lasted for about 1 minute.Pain said to be non radiating, occurring intermittently. No known aggravating or relieving factor.Pain associated with some SOB and nausea.He also has chronic baseline cough which has slightly gotten worse since this am but is non productive, o lower extremity edema, no palpitation, diaphoresis, fever or chills. Allergies No Known Drug Allergies Allergy (Verified 06/10/15 02:02) Unknown No Known Allergies Allergy (Uncoded 12/11/15 11:46) Unknown Home Medications: Metoprolol Tartrate [Lopressor*] 25 mg PO BID 01/12/14 Pantoprazole Sodium [Protonix] 40 mg PO DAILY #30 tablet. 05/20/16 Aspirin [Aspirin EC 81 MG] 81 mg PO DAILY #30 tablet. 09/21/16 Atorvastatin Calcium [Lipitor] 40 mg PO BEDTIME 09/21/16 Clopidogrel Bisulfate [Plavix*] 75 mg PO DAILY 09/21/16 Codeine/APAP [Tylenol #3*] 1 tab PO Q6HP PRN #14 tab 09/21/16 Nitroglycerin 0.4 mg SL Q5MX3, Q15MX1, Q30M PRN #30 tab.subl 09/21/16 Tamsulosin [Flomax*] 0.4 mg PO BID 09/21/16 - Past Medical/Surgical History Diabetic: No -: COPD -: Pneumonia - childhood -: Skin CA - arms -: Spinal meningitis - childhood -: ME -: Stroke -: BPH -: HTN -: Dementia -: Hernia -: PACEMAKER PLACEMENT -: STENT PLACEMENT (HEART AND RIGHT LEG) -: HERNIA REPAIR - L. side -: REMOVED skin CANCERS L arm -: pacemaker - Family History Mother -: Heart disease, Hypertension, Stroke, Cancer, Other (see notes) Notes: ovarian CA Father -: Lung disease - Social History Alcohol use: No CD- Drugs: No Caffeine use: Yes Review of Systems 10-point ROS is otherwise unremarkable Physical Examination - Physical Exam General: Alert, In no apparent distress, Oriented x3, Cooperative HEENT: Atraumatic, Normocephalic, PERRLA Neck: Supple, JVD not distended, No Thyromegaly, No LAD Cardiovascular: No edema, Normal pulses, Regular rate/rhythm, No gallops, No rubs, No murmurs Gastrointestinal: Normal bowel sounds, Soft and benign, Non-distended, W/out hepatosplenomegaly, No ascites, No tenderness, No masses, No rebound, No guarding Musculoskeletal: No clubbing, No swelling, No contractures, No erythema, No tenderness Integumentary: No breakdown, No tenderness/swelling Neurological: Normal gait, Normal speech, Normal strength at 5/5 x4 extr, Normal tone - Studies Laboratory Data (last 24 hrs) 07/09/17 13:30: PT 12.1, INR 1.03, APTT 23.3 L 07/09/17 13:30: WBC 7.3, Hgb 12.9 L, Hct 39.6, Plt Count 205 07/09/17 13:30: B-Natriuretic Peptide 68 07/09/17 13:30: Sodium 132 L, Potassium 4.1, BUN 16, Creatinine 0.98, Glucose 99 , Magnesium 1.8, Total Bilirubin 0.4, AST 20, ALT 15, Alkaline Phosphatase 119 Assessment and Plan - Problems (Diagnosis) (1) Chest pain Onset Date: 05/18/16 Current Visit: No Status: Acute Plan: patient with high risk factors will admit to telemetry serial enzymes,EKG cardiology consult start ASA, morphine and nitro prn check lipid profile,TSH lovenox (2) CAD (coronary artery disease) Onset Date: 10/18/15 Current Visit: No Status: Chronic Plan: rx as above continue home medications Qualifiers: Coronary Disease-Associated Artery/Lesion type: [place] artery [place] vs. transplanted heart: [place] heart Associated angina: without angina Qualified Code(s): I25.10 - Atherosclerotic heart disease of [place] coronary artery without angina pectoris (3) COPD (chronic obstructive pulmonary disease) Onset Date: 10/18/15 Current Visit: No Status: Chronic Plan: nebulizer treatment oxygen as needed Qualifiers: COPD type: chronic bronchitis Chronic bronchitis type: simple Qualified Code(s): J41.0 - Simple chronic bronchitis (4) HTN (hypertension) Onset Date: 12/02/16 Current Visit: No Status: Chronic Plan: resume home bp medications adjust as needed Qualifiers: Hypertension type: essential hypertension Discharge Plan: Home - Advance Directives Does patient have a Living Will: No Does patient have a Durable POA for Healthcare: No Physician Review: Patient Assessed, Agree with Above Assessment and Plan Time Spent Managing Pts Care (In Minutes): 30
[2017-07-09] MEDS ORDERED: ACETAMINOPHEN 500 MG TAB PO PRN (17:11)
[2017-07-09] MEDS ORDERED: NITROGLYCERIN 0.4 MG/TAB SL PRN (17:24)
--- NOTE | 2017-07-09 17:42 | EKG ---
Test Date: 2017-07-09 Test Time: 13:59:35 Bell Captain: SHADI MEASUREMENT RESULTS: Intervals: Rate: 60 NH: 148 QRSD: 72 QT: 388 QTc: 388 [place]: P: NH: 148 QRS: 11 T: 57 INTERPRETIVE STATEMENTS: Electronic atrial pacemaker Compared to ECG 07/09/2017 13:26:34 Ventricular-paced complex(es) or rhythm no longer present Electronically Signed On 07-09-17 17:41:14 CDT by Epifanio Gonzalez
--- NOTE | 2017-07-09 17:42 | EKG ---
Test Date: 2017-07-09 Test Time: 13:26:34 Fruit Shipper: TIAGO MEASUREMENT RESULTS: Intervals: Rate: 60 NV: 194 QRSD: 74 QT: 374 QTc: 374 [place]: P: -27 NV: 194 QRS: 10 T: 61 INTERPRETIVE STATEMENTS: Atrial-paced rhythm Abnormal ECG Compared to ECG 06/09/2017 19:26:29 No significant changes Electronically Signed On 07-09-17 17:41:22 CDT by Epifanio Gonzalez
--- NOTE | 2017-07-09 18:28 | RAD REPORT ---
EXAM DESCRIPTION: CT - Ct Stroke Brain Wo Cont - 07/09/2017 6:19 pm CLINICAL HISTORY: Dizziness, syncope COMPARISON: 06/09/2017 TECHNIQUE: All CT scans are performed using dose optimization technique as appropriate and may inclu de automated exposure control or mA/KV adjustment according to patient size. FINDINGS: No intracranial hemorrhage, hydrocephalus or extra-axial fluid collection.No areas of brai n edema or evidence of midline shift. The paranasal sinuses and mastoids are clear. The calvarium is intact. The vertebral arteries are mil dly calcified. IMPRESSION: No acute intracranial abnormality.
[2017-07-09 19:12] VITALS: BMI 21.7
[2017-07-09] MEDS: IPRATROPIUM BROM 0.5MG/2.5ML NEB SCH (19:35)
[2017-07-09] MEDS: ALBUTEROL 2.5 MG/3 ML NEB SOL NEB SCH (19:35)
[2017-07-09] MEDS: Morphine 2 MG/2 ML SYR IV PRN (20:34)
[2017-07-09] MEDS: METOPROLOL TAR 25 MG TAB PO SCH (20:38)
[2017-07-09] MEDS: ATORVASTATIN 40 MG TAB PO SCH (20:38)
[2017-07-09] MEDS: TAMSULOSIN 0.4 MG SR CAP PO SCH (20:38)
[2017-07-09] MEDS: NICOTINE 14 MG/PAT TD SCH ×2 (21:00→23:15)
[2017-07-09 22:42] LABS: CKMB Creatine Kinase MB 1.3 ng/ml (0.3-4.0)
[2017-07-09] MEDS: ONDANSETRON 4 MG/2 ML VIAL IV PRN (23:15)
[2017-07-10] MEDS: Morphine 2 MG/2 ML SYR IV PRN ×2 (00:48→09:18)
[2017-07-10] MEDS: IPRATROPIUM BROM 0.5MG/2.5ML NEB SCH ×4 (01:20→19:44)
[2017-07-10] MEDS: ALBUTEROL 2.5 MG/3 ML NEB SOL NEB SCH ×4 (01:20→19:44)
[2017-07-10 02:05] LABS: CKMB Creatine Kinase MB 1.3 ng/ml (0.3-4.0)
[2017-07-10 05:44] LABS: Potassium 4.6 mEq/L (3.6-5.0)
[2017-07-10] MEDS: PANTOPRAZOLE 40MG TABLET PO SCH (07:30)
[2017-07-10] MEDS: METOPROLOL TAR 25 MG TAB PO SCH ×2 (09:00→20:50)
[2017-07-10] MEDS: CLOPIDOGREL 75 MG TABLET PO SCH (09:00)
[2017-07-10] MEDS: ASPIRIN EC 81 MG TAB PO SCH (09:00)
[2017-07-10] MEDS: TAMSULOSIN 0.4 MG SR CAP PO SCH ×2 (09:00→20:50)
[2017-07-10] MEDS: ENOXAPARIN 40 MG/0.4 ML SQ SCH (09:10)
[2017-07-10] MEDS: NICOTINE 14 MG/PAT TD SCH (09:17)
[2017-07-10] MEDS: ONDANSETRON 4 MG/2 ML VIAL IV PRN (09:18)
[2017-07-10 11:07] LABS: CKMB Creatine Kinase MB 1.4 ng/ml (0.3-4.0)
[2017-07-10] MEDS ORDERED: BENZONATATE 100 MG CAP PO PRN (12:39)
--- NOTE | 2017-07-10 13:39 | CON ---
History Of Present Illness: Mr. Morfin started to have discomfort in his chest. He noted his bloo d pressure was high. Since being here in the hospital, he is having abdominal pain, nausea, and he i s vomiting some. He has a history of CAD with a right coronary stent very remotely. More recently, he had a cardiac cath that showed no stenosis, stent patent. He has had peripheral arterial disease with an angioplasty of his right iliac and common femoral. He has a pacemaker for sick sinus syndrom e. Medications: Outpatient medications have been metoprolol, Protonix, atorvastatin, Plavix, aspirin, a nd Robaxin. Since being in the hospital, [place] was ruled out with serial enzymes and EKGs. Physical Examination: VITAL SIGNS: 5 feet 10 inches, 151 pounds. GENERAL: Appears to be older than his stated age. HEENT: Normal. LUNGS: Clear. HEART: Within normal limits. Abdomen: Soft. EXTREMITIES: Palpable distal pulses. Diagnostic Data: The electrocardiogram shows electronic atrial pacemaker, the QRS complexes are all perfectly normal. A CT of the brain is within normal limits. A chest x-ray shows no acute intrathor acic process, there is a 2-lead pacemaker in place. Impression: The patient is having some kind of abdominal process and concerned that he has gallstone s or something similar. He does not seem to have bowel obstruction at least not much, but I think ge tting a CT of the abdomen and getting ultrasound of the abdomen are both worthwhile doing, maybe 1 or the other would be the best way to pursue it at first, and regarding his heart, I will recommend we do a pharmacologic nuclear stress test at some point in the future. It is certainly not an emergent thing, but I suspect his coronary arteries are stable at this point. I have recommended tobacco cessation again to him. KARAN/REGINA Voice ID: [id number] Report ID: [id number]
--- NOTE | 2017-07-10 15:14 | P.PN ---
Subjective Date of Service: 07/10/17 Chief Complaint: chest pain Subjective: Other (this am comlaining of pain now on the right side, with associated nausea and an episode of vomiting. no SOB but coughing) Review of Systems 10-point ROS is otherwise unremarkable Physical Examination - Vital Signs Temperature: 97 F Blood Pressure: 119/58 Pulse: 61 Respirations: 16 Pulse Ox (%): 95 - Physical Exam General: Alert, In no apparent distress, Oriented x3 HEENT: Atraumatic, Normocephalic, PERRLA Neck: Supple, JVD not distended, No Thyromegaly, No LAD Respiratory: Clear to auscultation bilaterally, Normal air movement Cardiovascular: No edema, Regular rate/rhythm, Normal S1 S2, No gallops, No rubs , No murmurs Gastrointestinal: Normal bowel sounds, Soft and benign, W/out hepatosplenomegaly , No ascites, No masses, No rebound, No guarding, Tenderness (RUQ) Neurological: Normal speech, Normal tone, Sensation intact Assessment And Plan - Current Problems (Diagnosis) (1) Chest pain Onset Date: 05/18/16 Current Visit: No Status: Acute Plan: patient with high risk factors continue to monitor on telemetry serial enzymes,EKG negative so far cardiology consulted, seen by Dr Gonzalez continue ASA, morphine and nitro prn NPO for now obtain abdominal U/S to evaluate GB lovenox (2) CAD (coronary artery disease) Onset Date: 10/18/15 Current Visit: No Status: Chronic Plan: rx as above continue home medications Qualifiers: Coronary Disease-Associated Artery/Lesion type: [place] artery [place] vs. transplanted heart: [place] heart Associated angina: without angina Qualified Code(s): I25.10 - Atherosclerotic heart disease of [place] coronary artery without angina pectoris (3) COPD (chronic obstructive pulmonary disease) Onset Date: 10/18/15 Current Visit: No Status: Chronic Plan: nebulizer treatment oxygen as needed Qualifiers: COPD type: chronic bronchitis Chronic bronchitis type: simple Qualified Code(s): J41.0 - Simple chronic bronchitis (4) HTN (hypertension) Onset Date: 12/02/16 Current Visit: No Status: Chronic Plan: resume home bp medications adjust as needed Qualifiers: Hypertension type: essential hypertension Physician Review: Patient Assessed, Agree with Above Assessment and Plan Time Spent Managing PTS Care (In Minutes): 30
--- NOTE | 2017-07-10 20:22 | RAD REPORT ---
EXAM DESCRIPTION: US - Abdomen Exam Complete - 07/10/2017 7:30 pm CLINICAL HISTORY: Abdominal pain COMPARISON: none FINDINGS: The liver has an increased echotexture. This limits evaluation. A tiny echogenic structure is present within the gallbladder. The gallbladder wall is not thickened. The biliary tree is normal caliber. The pancreas appears normal in size and echotexture. The right kidney measures 10 centimeters with a normal echotexture. The left kidney measures 11 centimeters with a normal echotexture. The spleen measures 11 centimeters. IMPRESSION: Increased hepatic echotexture consistent with fatty infiltration Tiny echogenic structure within the gallbladder either represents a polyp or very small stone. The ga llbladder wall is not thickened. There is no evidence of cholecystitis
[2017-07-10] MEDS: ATORVASTATIN 40 MG TAB PO SCH (20:50)
[2017-07-11] MEDS: IPRATROPIUM BROM 0.5MG/2.5ML NEB SCH ×4 (01:47→20:17)
[2017-07-11] MEDS: ALBUTEROL 2.5 MG/3 ML NEB SOL NEB SCH ×4 (01:48→20:17)
[2017-07-11] MEDS: CLOPIDOGREL 75 MG TABLET PO SCH (08:38)
[2017-07-11] MEDS: METOPROLOL TAR 25 MG TAB PO SCH ×2 (08:38→20:42)
[2017-07-11] MEDS: TAMSULOSIN 0.4 MG SR CAP PO SCH ×2 (08:38→20:42)
[2017-07-11] MEDS: PANTOPRAZOLE 40MG TABLET PO SCH (08:38)
[2017-07-11] MEDS: ENOXAPARIN 40 MG/0.4 ML SQ SCH (08:38)
[2017-07-11] MEDS: ASPIRIN EC 81 MG TAB PO SCH (08:39)
[2017-07-11] MEDS: NICOTINE 14 MG/PAT TD SCH (08:39)
[2017-07-11] MEDS: ONDANSETRON 4 MG/2 ML VIAL IV PRN (11:20)
[2017-07-11] MEDS: Morphine 2 MG/2 ML SYR IV PRN ×2 (11:21→20:42)
--- NOTE | 2017-07-11 13:37 | P.PN ---
Subjective Date of Service: 07/11/17 Chief Complaint: chest pain Subjective: Improving Review of Systems 10-point ROS is otherwise unremarkable Physical Examination - Vital Signs Temperature: 97.4 F Blood Pressure: 108/54 Pulse: 74 Respirations: 15 Pulse Ox (%): 96 - Physical Exam General: Alert, In no apparent distress, Oriented x3 HEENT: Atraumatic, Normocephalic, PERRLA Neck: Supple, JVD not distended, No Thyromegaly, No LAD Respiratory: Clear to auscultation bilaterally, Normal air movement Cardiovascular: No edema, Regular rate/rhythm, Normal S1 S2, No gallops, No rubs , No murmurs Gastrointestinal: Normal bowel sounds, Soft and benign, Non-distended, W/out hepatosplenomegaly, No ascites, No tenderness, No masses, No rebound, No guarding Musculoskeletal: No clubbing, No swelling, No contractures, No erythema, No tenderness, No warmth Integumentary: No rashes, No breakdown, No significant lesion, No tenderness/ swelling Assessment And Plan - Current Problems (Diagnosis) (1) Chest pain Onset Date: 05/18/16 Current Visit: No Status: Acute Plan: patient with high risk factors continue to monitor on telemetry serial enzymes,EKG negative so far cardiology consulted, seen by Dr Gonzalez plan for stress test in the am continue ASA, morphine and nitro prn (2) CAD (coronary artery disease) Onset Date: 10/18/15 Current Visit: No Status: Chronic Plan: rx as above continue home medications Qualifiers: Coronary Disease-Associated Artery/Lesion type: [place] artery [place] vs. transplanted heart: [place] heart Associated angina: without angina Qualified Code(s): I25.10 - Atherosclerotic heart disease of [place] coronary artery without angina pectoris (3) COPD (chronic obstructive pulmonary disease) Onset Date: 10/18/15 Current Visit: No Status: Chronic Plan: nebulizer treatment oxygen as needed Qualifiers: COPD type: chronic bronchitis Chronic bronchitis type: simple Qualified Code(s): J41.0 - Simple chronic bronchitis (4) HTN (hypertension) Onset Date: 12/02/16 Current Visit: No Status: Chronic Plan: resume home bp medications adjust as needed Qualifiers: Hypertension type: essential hypertension Physician Review: Patient Assessed, Agree with Above Assessment and Plan Time Spent Managing PTS Care (In Minutes): 25
--- NOTE | 2017-07-11 13:55 | PN ---
Mr. Morfin says he feels better. He has recently had chest pain. He has a remote history of coron kolton stent. Still smokes. I am going to recommend we keep him until we can do a pharmacologic nuclear stress test tomorrow. If he passes that, he could be discharged. JUDIE Voice ID: [id number] Report ID: [id number]
[2017-07-11 16:46] VITALS: O2SAT 99
[2017-07-11] MEDS: ATORVASTATIN 40 MG TAB PO SCH (20:42)
[2017-07-12] MEDS: IPRATROPIUM BROM 0.5MG/2.5ML NEB SCH ×3 (01:15→14:15)
[2017-07-12] MEDS: ALBUTEROL 2.5 MG/3 ML NEB SOL NEB SCH ×3 (01:15→14:15)
[2017-07-12] MEDS ORDERED: REGADENOSON 0.4 MG/5 ML SYR IV ONE (08:22)
[2017-07-12] MEDS: NICOTINE 14 MG/PAT TD SCH (10:24)
[2017-07-12] MEDS: ASPIRIN EC 81 MG TAB PO SCH (10:24)
[2017-07-12] MEDS: CLOPIDOGREL 75 MG TABLET PO SCH (10:25)
[2017-07-12] MEDS: ENOXAPARIN 40 MG/0.4 ML SQ SCH (10:25)
[2017-07-12] MEDS: METOPROLOL TAR 25 MG TAB PO SCH (10:25)
[2017-07-12] MEDS: TAMSULOSIN 0.4 MG SR CAP PO SCH (10:25)
[2017-07-12] MEDS: PANTOPRAZOLE 40MG TABLET PO SCH (10:25)
[2017-07-12] MEDS: Morphine 2 MG/2 ML SYR IV PRN (10:36)
[2017-07-12] MEDS: ONDANSETRON 4 MG/2 ML VIAL IV PRN (10:37)
--- NOTE | 2017-07-12 11:11 | RAD REPORT ---
EXAM DESCRIPTION: NM - Rest Stress Cardiac Imaging - 07/12/2017 10:46 am CLINICAL HISTORY: Chest pain COMPARISON: November 2016 TECHNIQUE: The patient was administered 10.8 mCi of Tc 99m Sestamibi prior to resting SPECT imaging of the heart. The patient was then administered 31.2 mCi of Tc 99m Sestamibi following exercise or ph armacologic stress. Multiplanar SPECT images were reviewed. FINDINGS: The end diastolic volume is 54 ml, the end systolic volume is 16 ml, and the ejection frac tion is 70 %. Volumes and ejection fraction have not changed since November 2016. No stress-induced ischemic changes are seen. There is a mild decrease along the inferior wall does no t change between rest and stress imaging. This is most likely attenuation artifact rather than scarri ng. No identifiable change between the current and November 2016 examination. IMPRESSION: No stress-induced ischemic change. Mild decrease in activity along the inferior wall is fixed and probably attenuation artifact. No iden tifiable changes from November 2016. Ventricular volumes and ejection fraction are normal range and stable from prior imaging.
[2017-07-12 13:17] VITALS: BP 137/63; TEMP 97.3
--- NOTE | 2017-07-12 14:20 | P.DS ---
Admission Date: 07/09/17 Discharge Date: 07/12/17 Primary Care Provider: Dr. Thomas; Cardiology-Dr. Quevedo Disposition: ROUTINE DISCHARGE Discharge Condition: GOOD Reason for Admission: chest pain Consultations: Cardiology-Dr. Gonzalez Procedures: CT head: No acute changes noted. Abdominal ultrasound: Fatty liver noted. Possible gallbladder polyp noted. No cholecystitis noted. Cardiac stress test: No stress-induced ischemia noted. - Problems (1) Hyperlipidemia Current Visit: Yes Status: Chronic Qualifiers: Hyperlipidemia type: unspecified Qualified Code(s): E78.5 - Hyperlipidemia , unspecified (2) GERD (gastroesophageal reflux disease) Current Visit: Yes Status: Chronic Qualifiers: Esophagitis presence: esophagitis presence not specified Qualified Code(s) : K21.9 - Gastro-esophageal reflux disease without esophagitis (3) Gallbladder polyp Current Visit: Yes Status: Suspected (4) Fatty liver Current Visit: Yes Status: Chronic (5) Chest pain Onset Date: 10/15/15 Current Visit: No Status: Acute Qualifiers: Chest pain type: unspecified Qualified Code(s): R07.9 - Chest pain, unspecified (6) CAD (coronary artery disease) Onset Date: 10/18/15 Current Visit: No Status: Chronic Qualifiers: Coronary Disease-Associated Artery/Lesion type: [place] artery [place] vs. transplanted heart: [place] heart Associated angina: without angina Qualified Code(s): I25.10 - Atherosclerotic heart disease of [place] coronary artery without angina pectoris (7) COPD (chronic obstructive pulmonary disease) Onset Date: 10/18/15 Current Visit: No Status: Chronic Qualifiers: COPD type: chronic bronchitis Chronic bronchitis type: simple Qualified Code(s): J41.0 - Simple chronic bronchitis (8) HTN (hypertension) Onset Date: 12/02/16 Current Visit: No Status: Chronic Qualifiers: Hypertension type: essential hypertension (9) Nicotine dependence Current Visit: No Status: Chronic Qualifiers: Nicotine product type: cigarettes Substance use status: uncomplicated Qualified Code(s): F17.210 - Nicotine dependence, cigarettes, uncomplicated (10) PVD (peripheral vascular disease) Onset Date: 10/18/15 Current Visit: No Status: Chronic Brief History of Present Illness: 59-year-old male present emergency room with chest pain. Patient with history of CAD, PVD, hypertension, hyperlipidemia, tobacco abuse and COPD. Patient was evaluated emergency room. The patient was admitted for further evaluation. Initial cardiac enzymes unremarkable. Hospital Course: Patient presented with chest pain. Chest pain resolved. Cardiac enzymes unremarkable. Patient seen and evaluated by Cardiology. Cardiology reported that the patient had a recent heart catheterization showing no stenosis, stents patent. Patient also with history of PVD with angioplasty done to the right iliac and common femoral. Cardiac stress test showed no stress-induced ischemia. At discharge patient will continue with aspirin 81 mg daily and Plavix 75 mg daily. Recommendations for the patient to follow up with cardiology within 1 week to follow up this hospitalization. 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 Patient has hypertension. This remained stable during his stay. Patient will continue with metoprolol 25 mg 1 pill twice daily. Recommendation is to maintain blood pressures less 150/80. Further adjustment can be done by his PCP. Patient has hyperlipidemia. Lipid panel within normal range. Patient will continue with Lipitor 80 mg daily. Patient has history of COPD. Patient has not been taking any medication at home. Patient continues with tobacco abuse. At discharge patient will be prescribed Symbicort 2 puffs twice daily and Pro air 2 puffs 3 times a day as needed for shortness of breath. Recommendations for the patient follow up with pulmonology as an outpatient to further monitor and address. Patient with tobacco use. Patient will be provided nicotine patch to be used once daily. Tobacco cessation education will be provided. Patient has GERD. Patient will continue with Protonix 40 mg 1 pill once daily. Patient had abdominal ultrasound showing fatty liver. Possible gallbladder polyp was also identified. No cholecystitis noted. Recommendations for the patient to follow up with surgery as an outpatient to further evaluate. Patient may require repeat abdominal ultrasound to further assess. Vital Signs/Physical Exam: Temp Pulse Resp BP Pulse Ox 97.3 F 60 18 137/63 99 07/12/17 12:00 07/12/17 12:00 07/12/17 12:00 07/12/17 12:07/12/17 12:00 General: Alert, In no apparent distress, Oriented x3, Cooperative HEENT: Atraumatic, Mucous membr. moist/pink Neck: Supple, No Thyromegaly Respiratory: Clear to auscultation bilaterally, Normal air movement Cardiovascular: Normal pulses, Regular rate/rhythm Gastrointestinal: Normal bowel sounds, Soft and benign, Non-distended, No tenderness, No masses, No rebound, No guarding Musculoskeletal: No erythema, No tenderness, No warmth Integumentary: No tenderness/swelling, No erythema, No warmth, No cyanosis Neurological: Normal speech, Normal strength at 5/5 x4 extr, Normal tone, Normal affect Lymphatics: No axilla or inguinal lymphadenopathy Laboratory Data at Discharge: WBC 7.3 K/uL (4.3-10.9) 07/09/17 13:30 Hgb 12.9 g/dL (13.6-17.9) L 07/09/17 13:30 Hct 39.6 % (39.6-49.0) 07/09/17 13:30 Plt Count 205 K/uL (152-406) 07/09/17 13:30 PT 12.1 SECONDS (9.5-12.5) 07/09/17 13:30 INR 1.03 07/09/17 13:30 APTT 23.3 SECONDS (24.3-36.9) L 07/09/17 13:30 Sodium 134 mEq/L (135-145) L 07/10/17 04:51 Potassium 4.6 mEq/L (3.6-5.0) 07/10/17 04:51 BUN 17 mg/dL (6-20) 07/10/17 04:51 Creatinine 0.94 mg/dL (0.61-1.24) 07/10/17 04:51 Glucose 108 mg/dL (65-120) 07/10/17 04:51 Magnesium 1.8 mg/dL (1.8-2.5) 07/09/17 13:30 Total Bilirubin 0.4 mg/dL (0.3-1.2) 07/09/17 13:30 AST 20 IU/L (10-42) 07/09/17 13:30 ALT 15 IU/L (10-60) 07/09/17 13:30 Alkaline Phosphatase 119 IU/L (42-121) 07/09/17 13:30 Troponin I < 0.03 ng/mL (<0.03) 07/10/17 09:40 B-Natriuretic Peptide 68 pg/ml (<=100) 07/09/17 13:30 Triglycerides 157 mg/dL (35-160) 07/10/17 04:51 Cholesterol 103 mg/dL (<200) 07/10/17 04:51 HDL Cholesterol 26 mg/dL (27-67) L 07/10/17 04:51 Cholesterol/HDL Ratio 3.96 07/10/17 04:51 Lipase 27 U/L (22-51) 07/10/17 09:40 Home Medications: Metoprolol Tartrate [Lopressor*] 25 mg PO BID 01/12/14 Pantoprazole Sodium [Protonix] 40 mg PO DAILY #30 tablet. 05/20/16 Aspirin [Aspirin EC 81 MG] 81 mg PO DAILY #30 tablet. 09/21/16 Atorvastatin Calcium [Lipitor] 80 mg PO BEDTIME 09/21/16 Clopidogrel Bisulfate [Plavix*] 75 mg PO DAILY 09/21/16 Methocarbamol [Robaxin*] 1,000 mg PO Q6H PRN 07/09/17 Albuterol Sulfate [Proair Hfa] 8.5 gm IH TID PRN #1 hfa.aer.ad 07/12/17 Budesonide/Formoterol Fumarate [Symbicort 160-4.5 Mcg Inhaler] 2 puff IH BID #1 hfa.aer.ad 07/12/17 Nicotine [Nicoderm*] 14 mg TD DAILY #30 patch.td24 07/12/17 New Medications: Albuterol Sulfate [Proair Hfa] 8.5 gm IH TID PRN #1 hfa.aer.ad PRN Reason: Shortness Of Breath Budesonide/Formoterol Fumarate [Symbicort 160-4.5 Mcg Inhaler] 2 puff IH BID #1 hfa.aer.ad Nicotine [Nicoderm*] 14 mg TD DAILY #30 patch.td24 Patient Discharge Instructions: 1. Patient will need a follow up with his PCP in 1 week to follow up this hospitalization. 2. Patient presented with chest pain. Chest pain resolved. Cardiac enzymes unremarkable. Patient seen and evaluated by Cardiology. Recent heart catheterization showed no stenosis. Stents patent. Patient also with history of PVD with angioplasty done to the right iliac and common femoral. Cardiac stress test showed no stress-induced ischemia. At discharge patient will continue with aspirin 81 mg daily and Plavix 75 mg daily. Recommendations for the patient to follow up with cardiology within 1 week to follow up this hospitalization. 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 3. Patient has hypertension. Patient will continue with metoprolol 25 mg 1 pill twice daily. Recommendation is to maintain blood pressures less 150/80. Further adjustment can be done by his PCP. 4. Patient has hyperlipidemia. Patient will continue with Lipitor 80 mg daily. 5. Patient has history of COPD. At discharge patient will be prescribed Symbicort 2 puffs twice daily and Pro air 2 puffs 3 times a day as needed for shortness of breath. Recommendations for the patient follow up with pulmonology as an outpatient to further monitor and address. 6. Patient with tobacco use. Patient will be provided nicotine patch to be used once daily. Tobacco cessation education will be provided. 7. Patient has GERD. Patient will continue with Protonix 40 mg 1 pill once daily. 8. Patient had abdominal ultrasound showing fatty liver. Possible gallbladder polyp was identified. No cholecystitis noted. Recommendations for the patient to follow up with surgery as an outpatient to further evaluate. Patient may require repeat abdominal ultrasound to further assess. Diet: AHA Activity: Fall precautions Time spent managing pt's care (in minutes): 55
--- NOTE | 2017-07-12 15:57 | TREADPHA ---
DX: CHEST PAIN Date of Study: 07/12/17 Ht: 5 10 Wt: 151 lb 1.6 oz Consulting Physician: CHARLES MEDICATIONS: TYLENOL, ALBUTEROL, ASPIRIN, LIPITOR, PLAVIX, LOVENOX, ATROVENT, LOPRESSOR, NICODERM, NITROSTAT, ZOFRAN, PROTONIX, FLOMAX, MORPHINE SULFATE. HISTORY: 68 YEAR OLD MALE WITH COMPLAINTS OF CHEST PAIN. SMOKER. MEDICAL HISTORY OF CHRONIC OBSTRUCTIVE PULMONARY DISEASE, CEREBRAL VASCULAR ACCIDENT, HYPERTENSION, DEMENTIA, CHOLELITHIASIS, PACER, CARDIAC STENTS, HERNIA. PHYSICIAL EXAMINATION: RESTING B.P.: 129/70 RESTING H.R.: 63 RESTING EKG: NORMAL. PROTOCOL: LEXISCAN EXERCISE TIME: 3:30 B.P. AT PEAK STRESS: 111/64 IMPRESSION: LEXISCAN INJECTED, CARDIOLITE INJECTED PER PROTOCOL. SEE NUCLEAR MEDICINE REPORT. NO SUPRA VENTRICULAR TACHYCARDIA. NO VENTRICULAR TACHYCARDIA. NO PREMATURE VENTRICULAR COMPLEXES. CHEST PAIN WAS 3/10 ON PAIN SCALE AT THE BEGINNING AND 5/10 AFTER THE ADMINISTRATION OF LEXISCAN AND REMAINED THE SAME IN RECOVERY. NON DIAGNOSTIC EKG WITH LEXISCAN STRESS.
--- NOTE | 2017-07-14 10:12 | PN ---
Date of Progress Note: 07/12/2017 The patient was seen by Dr. Gonzalez on 07/11/2015 and 07/12/2015. He had come in for chest pain. The Lexiscan that was ordered for today showed no ST changes, no ischemia, normal blood pressure respons e. He can go home whenever it is okay with Dr. Siddiqui. RASHARD/REGINA Voice ID: [id number] Report ID: [id number]
== END 2017-07-12 14:52 | disposition home or self-care (01) ==
LOC: ER 12:57 → ERHOLD 17:19 → 4TH 18:32
PROVIDERS: ADMIT Case Manager/Care Coordinator; ATTEND Internal Medicine
DX: R07.9 Chest pain, unspecified (principal); E78.5 Hyperlipidemia, unspecified; K21.9 Gastro-esophageal reflux disease without esophagitis; K76.0 Fatty (change of) liver, not elsewhere classified; I25.10 Atherosclerotic heart disease of native coronary artery without angina pectoris; I10 Essential (primary) hypertension; J44.9 Chronic obstructive pulmonary disease, unspecified; I73.9 Peripheral vascular disease, unspecified; F17.210 Nicotine dependence, cigarettes, uncomplicated
CPT/HCPCS: 36415 ×2; 70450; 71045; 76700; 78452; 80048 ×2; 80061; 80076; 81003; 82550 ×4; 82553 ×4; 82962; 83690; 83735; 83880; 84484 ×4; 85025; 85610; 85730; 93005 ×2; 93017; 94640; 96372; 96374; 96375; 99285; A9500; G0378 ×2; J1650 ×4; J2270 ×6; J2405 ×6; J2785

== ENCOUNTER 2017-07-19 09:51 | Emergency (ER) | payer OTHER ==
--- OUTSIDE RECORDS SUMMARY | 2017-07-19 09:53 | XMS REPORT | Clinical Summary ---
:1950 Demographics Address [address] [place] [address] Home Phone Mobile Phone Preferred Language Danish Marital Status Unknown Yazidism Affiliation Unknown Race White Ethnic Group Not or Author Organization [facility] Address [address] [place] [address] Phone Support Name Relationship Address Phone Mami Pena [address] [place] [address] Unavailable Naturalson [address] [place] [address] Care Team Providers Name Role Phone Unavailable [...] prior to 03/12 arrival Acute ischemic stroke ([facility]) 03/11/2017 HLD (hyperlipidemia) 01/17/2016 Peripheral vascular disease ([facility]) 01/14/2016 Postoperative anemia 01/14/2016 Coronary artery disease involving [place] coronary artery 01/10/2016 PAD (peripheral artery disease) ([facility]) 01/10/2016 HTN (hypertension) 01/10/2016 Iliac artery stenosis, bilateral ([facility]) 01/10/2016 Unstable angina ([facility]) 01/10/2016 COPD (chronic obstructive pulmonary disease) ([facility]) 01/10/2016 Tobacco abuse 01/10/2016 ACS (acute coronary syndrome) ([facility]) 01/10/2016 Encounters Date Type Specialty Care Team Description 03/11/2017 - Hospital Encounter General Internal Corbin Garcia Acute ischemic 03/14/2017 Medicine MD Doug stroke Stephanie Lugo ([facility]);Received MD Addie tissue plasminogen activator (t-PA) less than 24 hours prior to arrival;Essential hypertension;Periph eral vascular disease ([facility]);Tobacco abuse;Tobacco abuse counseling after 07/18/2016 Social History Tobacco Use Types Packs/Day Years Used Date Current Every Day Smoker Cigarettes 0.5 50 Smokeless Tobacco: Never Used Tobacco Cessation: Ready to Quit: No; Counseling Given: No Comments: 5-6 cigarettes a day Alcohol Use Drinks/Week oz/Week Comments No Sex Assigned at Date Recorded Not on file Last Filed Vital Signs Vital Sign Reading Time Taken Blood Pressure 119/65 03/14/2017 7:15 AM INSTRUMENT ASSEMBLER Pulse 60 03/14/2017 7:15 AM INSTRUMENT ASSEMBLER Temperature 35.8 C (96.4 F) 03/14/2017 7:15 AM INSTRUMENT ASSEMBLER Respiratory Rate 17 03/14/2017 7:15 AM INSTRUMENT ASSEMBLER Oxygen Saturation 96% 03/14/2017 7:15 AM INSTRUMENT ASSEMBLER Inhaled Oxygen Concentration - - Weight 70.4 kg (155 lb 3.3 oz) 03/11/2017 11:00 PM INSTRUMENT ASSEMBLER Height 172.7 cm (5' 8") 03/11/2017 11:00 PM INSTRUMENT ASSEMBLER Body Mass Index 23.6 03/11/2017 11:00 PM INSTRUMENT ASSEMBLER Plan of Treatment Health Maintenance Due Date Last Done Comments INFLUENZA VACCINE 12/06/2017 Implants Implanted Type Area Legal Referee Device Expiration Model / Identifier Date Serial / Lot Grft Eptfe-Heparin Rng [id number] - [id number] Graft/Pa N/A: MARIELENA PEREZE & 09/01/2019 [id number] / Implanted: Qty: 1 on 01/13/2016 by Oniel Smith MD [facility] Arterial ASSC: MED [facility] [id number] / Results ARRYTHMIA IMPLANT REPORT - SCAN [...] - 1 % Specimen Performing Laboratory Blood [address] [address] CBC with platelet count + automated diff (03/14/2017 4:53 AM)Only the most recent of4 resultswithin the time period is included. Specimen Performing Laboratory Blood Narrative The following orders were created for panel order CBC with platelet count + automated diff. Procedure Abnormality Status --------- ------ CBC with platelet count ...[[id number]]AbnormalFinal result Please view results for these tests [...] PATIENTS. Specimen Performing Laboratory Blood [facility] [address] ECHOCARDIOGRAM REPORT - SCAN (03/12/2017 4:57 PM)CT [...] MD Report Verified Date/Time:03/12/2017 15:31:17 Reading Location: [address] Neuro Reading Room Procedure Note Interface, External Ris In - 03/12/2017 3:33 PM INSTRUMENT ASSEMBLER FINAL REPORT CT head without contrast 03/12/2017 [...] Report Verified Date/Time: 03/12/2017 15:31:17 Reading Location: [facility] C013V Neuro Reading Room Troponin I (03/12/2017 2:28 PM)Only the most recent of3 resultswithin the time period is included. Component Value Ref Range Troponin I 0.02 0.00 - 0.03 ng/mL Specimen Performing Laboratory Blood - Arm, [place] [address] Narrative Troponin I (TnI) levels must be [...] 414 ms QTC Calculation(Bazett) 414 ms P [place] -18 degrees R [place] 9 degrees T [place] 68 degrees Electronic atrial pacemaker ST abnormality, possible digitalis effect Abnormal ECG No previous ECGs available Confirmed by Jasmeet HAIDER MICHAEL ([id number]) on 03/13/2017 9:39:18 AM Procedure Note Interface, External Ris In - 03/13/2017 9:39 AM INSTRUMENT ASSEMBLER Ventricular Rate 60 BPM Atrial Rate 60 BPM P-R Interval 138 ms QRS Duration 74 ms Q-T Interval 414 ms QTC Calculation(Bazett) 414 ms P [place] -18 degrees R [place] 9 degrees T [place] 68 degrees Electronic atrial pacemaker ST abnormality, possible digitalis effect Abnormal ECG No previous ECGs available Confirmed by Jasmeet HAIDER MICHAEL ([id number]) on 03/13/2017 9:39:18 AM 2D Echo W/Doppler(CW/PW/Color) (03/12/2017 10:53 AM) Component Value Ref Range Ejection Fraction Specimen Performing Laboratory [facility] Narrative Transthoracic Echocardiography Report (TTE) Demographics Patient Name Tyron PENA of Study 03/12/2017 [id number] GenderMale Visit Number [id number] Chuck [id number] Number [id number] Number Date of Birth1950 Referring Physician Corbin Garcia Age67 year(s) Show Girl Kristopher Muniz MD Physician Fellow CHLOE eMlton Procedure Type of Study TTE procedure:2DECHO W DOPPLER(CW/PW/COLOR) Indications:Stroke . Clinical History COPD,CVA,DEMENTIA,ENLARGED PROSTATE,HERNIA CEREBRI,HTN,LA,SMOKING Height: 68 inches Weight: 70.31 kg (155 [...] External Ris In - 03/12/2017 4:15 PM INSTRUMENT ASSEMBLER Transthoracic Echocardiography Report (TTE) Demographics Patient Name MAMI PENA Date of Study 03/12/2017 Gender Male Visit Number [id number] Race Room Number 7518 Number Date of 1950 Referring Physician Corbin Garcia Age 67 year(s) Show Girl Kristopher Engle Interpreting Prosper Muniz MD Physician Fellow CHLOE Melton Procedure Type of Study TTE procedure:2DECHO W DOPPLER(CW/PW/COLOR) Indications:Stroke . Clinical History COPD,CVA,DEMENTIA,ENLARGED PROSTATE,HERNIA CEREBRI,HTN,LA,SMOKING Height: 68 inches Weight: 70.31 kg (155 [...] MD Report Verified Date/Time:03/12/2017 10:06:57 Reading Location: [facility] Radiology Reading Room Procedure Note Interface, External Ris In - 03/12/2017 10:09 AM INSTRUMENT ASSEMBLER FINAL REPORT Two frontal chest images Discussion: [...] Report Verified Date/Time: 03/12/2017 10:06:57 Reading Location: [facility] Radiology Reading Room PHERAL VASCULAR REPORT - SCAN (03/12/2017 8:20 AM)Homocysteine - Fasting ( 03/12/2017 8:13 AM) Component Value Ref Range Homocysteine 11.8 5.1 - 15.4 umol/L Specimen Performing Laboratory Blood - [place], [address] [address] Narrative Fasting Hemoglobin A1c - Fasting (03/12/2017 8:13 AM) Component Value Ref Range Hemoglobin A1C 5.6 4.3 - 6.1 % Specimen Performing Laboratory Blood - [place], [address] [address] Narrative Fasting Creatine Kinase (CK), Total and MB (03/12/2017 8:13 AM)Only the most recent of2 resultswithin the time period is included. Component Value Ref Range Total CK 59 29 - 200 U/L CK-MB 1.0 0.0 - 6.6 ng/mL MB Relative Index 1.7 % Specimen Performing Laboratory Blood - [place], [address] [address] Narrative CK-MB Reference Range: <6.7Normal 6.7-10.0Borderline >10.0 Abnormal Fasting Fasting Fasting lipid panel (03/12/2017 8:13 AM) Component Value Ref Range Triglycerides 151 mg/dL Cholesterol 147 mg/dL HDL 29 mg/dL LDL Calculated 88 mg/dL Specimen Performing Laboratory Blood - [place], [address] [address] Narrative Triglyceride Reference Range: Low Risk <150 [id number] High Risk 200-499 Very High Risk>=500 Cholesterol Reference Range: Low Risk <200 [id number] High Risk>240 HDL Cholesterol Reference Range: Low Risk >=60 High Risk <40 LDL Cholesterol Reference Range: Optimal<100 Near [id number] Very High >=190 Fasting Carotid doppler bilateral (03/12/2017 6:19 AM) Component Value Ref Range Ejection Fraction Specimen Performing Laboratory [facility] Impressions Right Impression 1. There is [...] Demographics Patient Name JEAN,Date of Study2017 RADHA [id number] Age67 Visit Number [id number] Gender Male Accession Number [id number] Date of Birth1950 [facility] Room [id number] Physician Elaine Garcia MD, RPVI Procedure Type of Study: Cerebral: Carotid, CAROTID DOPPLER, BILATERAL. Indications for Study:Stroke. Blood Pressure:Right arm 116/68 mmHg.Left arm 123/73 mmHg. Patient Status:Routine. Study Location:Portable. Technical Quality:Adequate visualization. Risk Factors History of Disease + + +--------+ !Diagnosis !Date!Comments! + + +--------+ !History/Risk Factors: !03/12/2017!Stroke! + + +--------+ Procedure Note Interface, External Ris In - 03/12/2017 7:32 AM INSTRUMENT ASSEMBLER [facility] - Carotid Duplex Study Demographics Patient Name JEAN, Date of Study 03/12/2017 RADHA Age 67 Visit Number [id number] Gender Male Accession Number [id number] Date of 1950 Referring Corbin Garcia Room Number 7518 Physician Show Girl Vangie Plaza Interpreting Cristobal Perez T Physician [...] ng/mL Specimen Performing Laboratory Blood - [place], [address] [address] TSH/Free T4 If Indicated (03/11/2017 11:41 PM) Component Value Ref Range TSH 2.01 0.35 - 4.94 uIU/mL Specimen Performing Laboratory Blood - [place], [address] [address] Prothrombin time/INR (03/11/2017 11:41 PM) Component Value Ref Range Protime 17.2 (H) 11.7 - 14.7 seconds INR 1.4 <=5.9 Specimen Performing Laboratory Blood - [place], [address] [address] Narrative RECOMMENDED COUMADIN/WARFARIN INR THERAPY RANGES STANDARD DOSE: 2.0 - 3.0 Includes: PROPHYLAXIS for venous thrombosis, systemic embolization; TREATMENT for venous thrombosis and/or pulmonary embolus. HIGH RISK: Target INR is 2.5-3.5 for patients with mechanical heart valves. after 07/18/2016
--- OUTSIDE RECORDS SUMMARY | 2017-07-19 09:54 | XMS REPORT ---
:1950 Author Organization [facility] Address [address] [place] [address] Care Team Providers Name Role Phone MECCA [...] Comments SODIUM (BEAKER) (test 136 meq/L 136-145 azxr=993) POTASSIUM (BEAKER) (test 4.0 meq/L 3.5-5.1 ousx=267) CHLORIDE (BEAKER) (test 106 meq/L 98-107 ehcu=567) CO2 (BEAKER) (test nriv=725) 23 meq/L 22-29 BLOOD UREA NITROGEN (BEAKER) 15 mg/dL 7-21 (test hdvg=592) CREATININE (BEAKER) (test 0.92 mg/dL 0.57-1.25 omjy=084) GLUCOSE RANDOM (BEAKER) 92 mg/dL 70-105 (test qitj=461) CALCIUM (BEAKER) (test 8.7 mg/dL 8.4-10.2 orok=618) EGFR (BEAKER) (test 82 mL/min/1.73 sq m ESTIMATED GFR IS NOT zcaf=6302) ACCURATE CREATININE CLEARANCE IN PREDICTING GLOMERULAR FILTRATION RATE. ESTIMATED GFR IS NOT APPLICABLE FOR DIALYSIS PATIENTS. CBC W/PLT COUNT & AUTO [id number] 05:55:00 Test Item Value Reference Range Comments WHITE BLOOD CELL COUNT (BEAKER) (test asiv=249) 5.9 K/ L 3.5-10.5 RED BLOOD CELL COUNT (BEAKER) (test dqag=792) 4.25 M/ L 4.63-6.08 HEMOGLOBIN (BEAKER) (test yyuk=623) 12.3 GM/DL 13.7-17.5 HEMATOCRIT (BEAKER) (test tvvu=805) 37.8 % 40.1-51.0 MEAN CORPUSCULAR VOLUME (BEAKER) (test pqos=471) 88.9 fL 79.0-92.2 MEAN CORPUSCULAR HEMOGLOBIN (BEAKER) (test 28.9 pg 25.7-32.2 dhrd=897) MEAN CORPUSCULAR HEMOGLOBIN CONC (BEAKER) (test 32.5 GM/DL 32.3-36.5 ukhc=624) RED CELL DISTRIBUTION WIDTH (BEAKER) (test 15.9 % 11.6-14.4 kvua=150) PLATELET COUNT (BEAKER) (test kdeu=383) 173 K/CU MM 150-450 MEAN PLATELET VOLUME (BEAKER) (test fscy=772) 11.5 fL 9.4-12.4 NUCLEATED RED BLOOD CELLS (BEAKER) (test 0 /100 WBC 0-0 qaci=312) NEUTROPHILS RELATIVE PERCENT (BEAKER) (test 48 % vlhl=430) LYMPHOCYTES RELATIVE PERCENT (BEAKER) (test 34 % bbdg=823) MONOCYTES RELATIVE PERCENT (BEAKER) (test 12 % cfvd=563) EOSINOPHILS RELATIVE PERCENT (BEAKER) (test 4 % fdkk=201) BASOPHILS RELATIVE PERCENT (BEAKER) (test 2 % guhs=294) NEUTROPHILS ABSOLUTE COUNT (BEAKER) (test 2.85 K/ L 1.78-5.38 kcqq=849) LYMPHOCYTES ABSOLUTE COUNT (BEAKER) (test 2.02 K/ L 1.32-3.57 slvy=612) MONOCYTES ABSOLUTE COUNT (BEAKER) (test 0.68 K/ L 0.30-0.82 aauc=481) EOSINOPHILS ABSOLUTE COUNT (BEAKER) (test 0.25 K/ L 0.04-0.54 kslk=616) BASOPHILS ABSOLUTE COUNT (BEAKER) (test 0.09 K/ L 0.01-0.08 wlrh=688) IMMATURE GRANULOCYTES-RELATIVE PERCENT (BEAKER) 1 % 0-1 (test arze=7059) CBC W/PLT COUNT & AUTO [id number] 05:15:00 Test Item Value Reference Range Comments WHITE BLOOD CELL COUNT (BEAKER) (test wjmt=607) 5.4 K/ L 3.5-10.5 RED BLOOD CELL COUNT (BEAKER) (test uvft=080) 4.34 M/ L 4.63-6.08 HEMOGLOBIN (BEAKER) (test nwvh=037) 12.5 GM/DL 13.7-17.5 HEMATOCRIT (BEAKER) (test cwmp=932) 39.0 % 40.1-51.0 MEAN CORPUSCULAR VOLUME (BEAKER) (test ehtp=409) 89.9 fL 79.0-92.2 MEAN CORPUSCULAR HEMOGLOBIN (BEAKER) (test 28.8 pg 25.7-32.2 frvq=296) MEAN CORPUSCULAR HEMOGLOBIN CONC (BEAKER) (test 32.1 GM/DL 32.3-36.5 tlhr=932) RED CELL DISTRIBUTION WIDTH (BEAKER) (test 15.9 % 11.6-14.4 ebby=870) PLATELET COUNT (BEAKER) (test ceow=371) 162 K/CU MM 150-450 MEAN PLATELET VOLUME (BEAKER) (test zyyj=198) 10.6 fL 9.4-12.4 NUCLEATED RED BLOOD CELLS (BEAKER) (test 0 /100 WBC 0-0 nmyz=248) NEUTROPHILS RELATIVE PERCENT (BEAKER) (test 52 % ajwp=503) LYMPHOCYTES RELATIVE PERCENT (BEAKER) (test 31 % voiw=803) MONOCYTES RELATIVE PERCENT (BEAKER) (test 11 % vczs=507) EOSINOPHILS RELATIVE PERCENT (BEAKER) (test 4 % zbre=375) BASOPHILS RELATIVE PERCENT (BEAKER) (test 2 % flqp=961) NEUTROPHILS ABSOLUTE COUNT (BEAKER) (test 2.78 K/ L 1.78-5.38 sonn=157) LYMPHOCYTES ABSOLUTE COUNT (BEAKER) (test 1.69 K/ L 1.32-3.57 orpo=238) MONOCYTES ABSOLUTE COUNT (BEAKER) (test 0.59 K/ L 0.30-0.82 ommr=000) EOSINOPHILS ABSOLUTE COUNT (BEAKER) (test 0.21 K/ L 0.04-0.54 fhyx=260) BASOPHILS ABSOLUTE COUNT (BEAKER) (test 0.09 K/ L 0.01-0.08 suow=230) IMMATURE GRANULOCYTES-RELATIVE PERCENT (BEAKER) 1 % 0-1 (test mhnp=1648) CT, BRAIN, WITHOUT [id number] 15:31:00FINAL REPORT CT head without contrast 03/12/2017 [...] Paez Verified Date/Time: 03/12/2017 15:31:17 Reading Location: [address] Neuro Reading Room TROPONIN [id number] 15:26:00 Test Item Value Reference Range Comments TROPONIN I (KYARA) (test hcae=580) 0.02 ng/mL 0.00-0.03 Troponin I (TnI) levels [...] acidosis, acute neurological disease, and persistent tachyarrhythmia.HEMOGLOBIN [id number] 12:38:00 Test Item Value Reference Range Comments HEMOGLOBIN A1C (KYARA) (test ssij=198) 5.6 % 4.3-6.1 FastingRAD, CHEST, 1 VIEW, NON [id number] 10:06:00Reason for exam:->rule out pneumoniaShould this be [...] Benites Verified Date/Time: 03/12/2017 10:06:57 Reading Location: [facility] Radiology Reading Room [id number] 09:08:00 Test Item Value Reference Range Comments HOMOCYSTEINE (BEAKER) (test qknv=319) 11.8 umol/L 5.1-15.4 FastingCREATINE KINASE (CK), TOTAL AND [id number] 08:55:00 Test Item Value Reference Range Comments CREATINE KINASE TOTAL (BEAKER) (test esco=056) 59 U/L 29-200 CREATINE KINASE-MB (BEAKER) (test jvyz=096) 1.0 ng/mL 0.0-6.6 CREATINE KINASE-MB INDEX (BEAKER) (test oain=262) 1.7 % CK-MB Reference Range:<6.7 Normal6.7-10.0 Borderline>10.0 AbnormalFastingFastingTROPONIN [id number] 08:55:00 Test Item Value Reference Range Comments TROPONIN I (BEAKER) (test czgr=685) < ng/mL 0.00-0.03 Troponin I (TnI) levels [...] acidosis, acute neurological disease, and persistent tachyarrhythmia.FastingLIPID [id number] 08:48:00 Test Item Value Reference Range Comments TRIGLYCERIDES (BEAKER) (test bzkl=765) 151 mg/dL CHOLESTEROL (BEAKER) (test zzsp=502) 147 mg/dL HDL CHOLESTEROL (BEAKER) (test xizp=547) 29 mg/dL LDL CHOLESTEROL CALCULATED (BEAKER) (test 88 mg/dL wfdy=380) Triglyceride Reference Range: Low Risk <150 Borderline 150- 199 High Risk 200-499 Very High Risk >=500Cholesterol Reference Range: Low Risk <200 Borderline 200-239 High Risk > 240HDL Cholesterol Reference Range: Low Risk >=60 High Risk <40LDL Cholesterol Reference Range: Optimal <100 Near Optimal 100-129 Borderline 130-159 High 160-189 Very High >=190 FastingBASIC METABOLIC [id number] 08:48:00 Test Item Value Reference Range Comments SODIUM (BEAKER) (test 136 meq/L 136-145 xgui=812) POTASSIUM (BEAKER) (test 4.4 meq/L 3.5-5.1 esjb=730) CHLORIDE (BEAKER) (test 104 meq/L 98-107 exjl=469) CO2 (BEAKER) (test 25 meq/L 22-29 ksew=986) BLOOD UREA NITROGEN 15 mg/dL 7-21 (BEAKER) (test ahoq=897) CREATININE (BEAKER) (test 0.87 mg/dL 0.57-1.25 rgba=599) GLUCOSE RANDOM (BEAKER) 102 mg/dL 70-105 (test pesq=708) CALCIUM (BEAKER) (test 8.9 mg/dL 8.4-10.2 rgcu=234) EGFR (BEAKER) (test 87 mL/min/1.73 sq m ESTIMATED GFR IS NOT umab=4002) ACCURATE CREATININE CLEARANCE IN PREDICTING GLOMERULAR FILTRATION RATE. ESTIMATED GFR IS NOT APPLICABLE FOR DIALYSIS PATIENTS. FastingCBC W/PLT COUNT & AUTO [id number] 08:24:00 Test Item Value Reference Range Comments WHITE BLOOD CELL COUNT (BEAKER) (test orpa=913) 5.7 K/ L 3.5-10.5 RED BLOOD CELL COUNT (BEAKER) (test iahw=199) 4.23 M/ L 4.63-6.08 HEMOGLOBIN (BEAKER) (test kliu=150) 12.3 GM/DL 13.7-17.5 HEMATOCRIT (BEAKER) (test rbkm=840) 37.9 % 40.1-51.0 MEAN CORPUSCULAR VOLUME (BEAKER) (test lbvv=222) 89.6 fL 79.0-92.2 MEAN CORPUSCULAR HEMOGLOBIN (BEAKER) (test 29.1 pg 25.7-32.2 dvjq=323) MEAN CORPUSCULAR HEMOGLOBIN CONC (BEAKER) (test 32.5 GM/DL 32.3-36.5 lukg=539) RED CELL DISTRIBUTION WIDTH (BEAKER) (test 15.9 % 11.6-14.4 ynbe=539) PLATELET COUNT (BEAKER) (test okxg=766) 156 K/CU MM 150-450 MEAN PLATELET VOLUME (BEAKER) (test jzea=870) 10.2 fL 9.4-12.4 NUCLEATED RED BLOOD CELLS (BEAKER) (test 0 /100 WBC 0-0 mvku=082) NEUTROPHILS RELATIVE PERCENT (BEAKER) (test 47 % hvsi=347) LYMPHOCYTES RELATIVE PERCENT (BEAKER) (test 37 % qitt=838) MONOCYTES RELATIVE PERCENT (BEAKER) (test 12 % ahpv=508) EOSINOPHILS RELATIVE PERCENT (BEAKER) (test 3 % oeoy=169) BASOPHILS RELATIVE PERCENT (BEAKER) (test 2 % ifqv=804) NEUTROPHILS ABSOLUTE COUNT (BEAKER) (test 2.66 K/ L 1.78-5.38 rzzg=584) LYMPHOCYTES ABSOLUTE COUNT (BEAKER) (test 2.09 K/ L 1.32-3.57 jppm=247) MONOCYTES ABSOLUTE COUNT (BEAKER) (test 0.70 K/ L 0.30-0.82 nfaq=972) EOSINOPHILS ABSOLUTE COUNT (BEAKER) (test 0.15 K/ L 0.04-0.54 egtx=581) BASOPHILS ABSOLUTE COUNT (BEAKER) (test 0.09 K/ L 0.01-0.08 bvaj=976) IMMATURE GRANULOCYTES-RELATIVE PERCENT (BEAKER) 1 % 0-1 (test glso=1389) TSH/FREE T4 IF [id number] 03:38:00 Test Item Value Reference Range Comments THYROID STIMULATING HORMONE (BEAKER) (test 2.01 uIU/mL 0.35-4.94 uekd=628) VITAMIN B12 AND [id number] 03:38:00 Test Item Value Reference Range Comments VITAMIN B12 (BEAKER) (test aatj=578) 1008 pg/mL 213-816 FOLATE (BEAKER) (test yxvb=066) 8.4 ng/mL >=7.0 CREATINE KINASE (CK), TOTAL AND [id number] 01:03:00 Test Item Value Reference Range Comments CREATINE KINASE TOTAL (BEAKER) (test kccj=064) 66 U/L 29-200 CREATINE KINASE-MB (BEAKER) (test wkfo=606) 1.4 ng/mL 0.0-6.6 CREATINE KINASE-MB INDEX (BEAKER) (test ebnu=039) 2.1 % CK-MB Reference Range:<6.7 Normal6.7-10.0 Borderline>10.0 AbnormalTROPONIN [id number] 01:03:00 Test Item Value Reference Range Comments TROPONIN I (BEAKER) (test ztlb=530) 0.02 ng/mL 0.00-0.03 Troponin I (TnI) levels [...] acute neurological disease, and persistent tachyarrhythmia.BASIC METABOLIC [id number] 00:56:00 Test Item Value Reference Range Comments SODIUM (BEAKER) (test 136 meq/L 136-145 wpmq=901) POTASSIUM (BEAKER) (test 3.9 meq/L 3.5-5.1 qppq=701) CHLORIDE (BEAKER) (test 104 meq/L 98-107 yayu=695) CO2 (BEAKER) (test 24 meq/L 22-29 zggv=442) BLOOD UREA NITROGEN 14 mg/dL 7-21 (BEAKER) (test uwua=772) CREATININE (BEAKER) (test 0.87 mg/dL 0.57-1.25 zjel=889) GLUCOSE RANDOM (BEAKER) 104 mg/dL 70-105 (test wsvd=517) CALCIUM (BEAKER) (test 9.2 mg/dL 8.4-10.2 spov=121) EGFR (BEAKER) (test 87 mL/min/1.73 sq m ESTIMATED GFR IS NOT wmfp=9946) ACCURATE CREATININE CLEARANCE IN PREDICTING GLOMERULAR FILTRATION RATE. ESTIMATED GFR IS NOT APPLICABLE FOR DIALYSIS PATIENTS. PROTHROMBIN TIME/[id number] 00:27:00 Test Item Value Reference Range Comments PROTIME (BEAKER) (test wfuk=225) 17.2 seconds 11.7-14.7 INR (BEAKER) (test kwfo=273) 1.4 <=5.9 RECOMMENDED COUMADIN/WARFARIN INR THERAPY RANGESSTANDARD DOSE: 2.0 - 3.0 Includes: PROPHYLAXIS forvenous thrombosis, systemic embolization; TREATMENT for venous thrombosis and/or pulmonary embolus.HIGH RISK: Target INR is 2.5-3.5 for patients with mechanical heart valves.CBC W/PLT COUNT & AUTO [id number] 00:01:00 Test Item Value Reference Range Comments WHITE BLOOD CELL COUNT (BEAKER) (test moav=502) 8.2 K/ L 3.5-10.5 RED BLOOD CELL COUNT (BEAKER) (test cshd=100) 4.57 M/ L 4.63-6.08 HEMOGLOBIN (BEAKER) (test gsaw=091) 13.2 GM/DL 13.7-17.5 HEMATOCRIT (BEAKER) (test cpvy=820) 40.5 % 40.1-51.0 MEAN CORPUSCULAR VOLUME (BEAKER) (test vzee=338) 88.6 fL 79.0-92.2 MEAN CORPUSCULAR HEMOGLOBIN (BEAKER) (test 28.9 pg 25.7-32.2 junt=425) MEAN CORPUSCULAR HEMOGLOBIN CONC (BEAKER) (test 32.6 GM/DL 32.3-36.5 jibv=352) RED CELL DISTRIBUTION WIDTH (BEAKER) (test 15.9 % 11.6-14.4 aexu=032) PLATELET COUNT (BEAKER) (test aagn=120) 198 K/CU MM 150-450 MEAN PLATELET VOLUME (BEAKER) (test rmfh=915) 11.2 fL 9.4-12.4 NUCLEATED RED BLOOD CELLS (BEAKER) (test 0 /100 WBC 0-0 omsa=717) NEUTROPHILS RELATIVE PERCENT (BEAKER) (test 57 % qiot=266) LYMPHOCYTES RELATIVE PERCENT (BEAKER) (test 28 % woee=338) MONOCYTES RELATIVE PERCENT (BEAKER) (test 10 % cpip=375) EOSINOPHILS RELATIVE PERCENT (BEAKER) (test 3 % yoig=550) BASOPHILS RELATIVE PERCENT (BEAKER) (test 1 % shhy=848) NEUTROPHILS ABSOLUTE COUNT (BEAKER) (test 4.66 K/ L 1.78-5.38 ivot=098) LYMPHOCYTES ABSOLUTE COUNT (BEAKER) (test 2.29 K/ L 1.32-3.57 gsef=192) MONOCYTES ABSOLUTE COUNT (BEAKER) (test 0.81 K/ L 0.30-0.82 sqsu=316) EOSINOPHILS ABSOLUTE COUNT (BEAKER) (test 0.25 K/ L 0.04-0.54 eolp=290) BASOPHILS ABSOLUTE COUNT (BEAKER) (test 0.10 K/ L 0.01-0.08 bjed=075) IMMATURE GRANULOCYTES-RELATIVE PERCENT (BEAKER) 1 % 0-1 (test ynyd=1479)
[2017-07-19] MEDS ORDERED: NA CHLORIDE 0.9% 1,000 ML ONE (11:04)
[2017-07-19 11:29] LABS: Absolute Lymphocytes (CBC) 1.6 K/uL (0.7-4.9); Absolute Monocytes 0.6 K/uL (0.1-1.3); Absolute Neutrophil 4.4 K/uL (1.8-8.0); Basophils % 1.2 % (0-1.3); Eosinophils % 1.3 % (0-4.4); Lymphocytes % 24.1 % (15.3-44.8); MCH 29.9 pg (27.0-35.0); MCV 88.5 fL (80-100); MPV 9.1 fL (7.6-11.3); Monocytes % 9.3 % (3.3-12.3); RBC Red Blood Cell Count 4.07 M/uL (4.33-5.43)
[2017-07-19 11:36] LABS: Protime INR 1.09
[2017-07-19 12:06] LABS: ALT/SGPT 16 IU/L (10-60); AST/SGOT 20 IU/L (10-42); Albumin 3.8 g/dL (3.2-5.5); Alkaline Phosphatase 117 IU/L (42-121); BUN Blood Urea Nitrogen 15 mg/dL (6-20); Bicarbonate 30 mEq/L (21-31); Bilirubin Direct 0.1 mg/dL (0-0.2); Bilirubin Total 0.4 mg/dL (0.3-1.2); CKMB Creatine Kinase MB 1.4 ng/ml (0.3-4.0); Creatine Phosphokinase 85 IU/L (22-269); Glucose Level 98 mg/dL (65-120); Lipase 34 U/L (22-51); Magnesium 1.7 mg/dL (1.8-2.5); Potassium 4.3 mEq/L (3.6-5.0); Protein, Total 7.2 g/dL (6.0-8.3)
--- NOTE | 2017-07-19 12:06 | RAD REPORT ---
EXAM DESCRIPTION: [place] Single View07/19/2017 11:41 am CLINICAL HISTORY: Chest pain COMPARISON: 2010 FINDINGS: The lungs appear clear of acute infiltrate. The heart is normal size. Pacemaker leads are in place. IMPRESSION: No acute abnormalities displayed
[2017-07-19 13:26] LABS: Urine Blood NEGATIVE (NEG); Urine Glucose NEGATIVE (NEG); Urine Protein NEGATIVE (NEG)
--- NOTE | 2017-07-19 13:56 | RAD REPORT ---
EXAM DESCRIPTION: CT - Abdomen Pelvis W Contrast - 07/19/2017 1:33 pm CLINICAL HISTORY: Abdominal pain/right lower quadrant pain since last night COMPARISON: May 2016 TECHNIQUE: Computed axial tomography of the abdomen pelvis was obtained. 100 cc Isovue-300 was admin istered intravenously. Oral contrast was not requested which limits evaluation of bowel. All CT scans are performed using dose optimization technique as appropriate and may include automated exposure control or mA/KV adjustment according to patient size. FINDINGS: Mild fatty infiltration liver is present. Spleen, pancreas, adrenal and kidneys appear unremarkable. There is no evidence of diverticulitis. The appendix is normal. 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 A femoral to femoral graft is present. IMPRESSION: No acute abnormality is displayed.
--- NOTE | 2017-07-19 14:13 | ER ---
Nurse's Notes [facility] Name: Maurice Morfin Age: 67 yrs Sex: Male : 1950 Arrival Date: 07/19/2017 Time: 09:54 Bed 26 Private MD: Yung Thomas Diagnosis: Abdominal tenderness Presentation: 07/19 09:57 Presenting complaint: Patient states: RLQ pain, bruising, and swelling since last hb night. Scheduled for live on 07/[address] Amaya. Transition of care: patient was not received from another setting of care. Onset of symptoms was July 18, 2017. Initial Sepsis Screen: Does the patient meet any 2 criteria? No. Patient's initial sepsis screen is negative. Does the patient have a suspected source of infection? No. Patient's initial sepsis screen is negative. Care prior to arrival: None. 09:57 Method Of Arrival: Ambulatory hb 09:57 Acuity: WAYLON 3 hb Historical: - Allergies: 10:01 NKDA; hb - Home Meds: 10:01 albuterol sulfate 2.5 mg /3 mL (0.083 %) Inhl nebu for Chronic Obstructive Pulmonary hb Disease [Active]; aspirin 81 mg Oral chew 1 tab once daily [Active]; clopidogrel 75 mg Oral tab 1 tab once daily [Active]; ipratropium bromide (bulk) miscellaneous powd daily [Active]; metoprolol tartrate 25 mg Oral tab 1 tab 2 times per day for Hypertension [Active]; omeprazole 20 mg Oral cpDR 1 cap once daily for Gastroesophageal reflux [Active]; Protonix 40 mg Oral TbEC 1 tab once daily [Active]; Symbicort 160-4.5 mcg/actuation inhalation HFAA 2 puffs 2 times per day for Bronchospasm Prevention with COPD [Active]; tamsulosin 0.4 mg Oral cp24 1 cap once daily [Active]; - PMHx: 10:01 Cholelithiasis; COPD; CVA; Dementia; enlarged prostate; Hernia; Hypertension; DC; hb - PSHx: 10:01 PACEMAKER; Heart stents; hb - Immunization history:: Adult Immunizations up to date. - Social history:: Smoking status: Patient uses tobacco products, smokes one-half pack cigarettes per day. - Family history:: not pertinent. Screenin:31 Abuse screen: Denies threats or abuse. Denies injuries from another. Nutritional aj screening: No deficits noted. Tuberculosis screening: No symptoms or risk factors identified. Fall Risk None identified. Assessment: 10:31 General: Appears in no apparent distress. comfortable, Behavior is calm, cooperative, aj appropriate for age. Pain: Complains of pain in right femoral area. Neuro: Level of Consciousness is awake, alert, obeys commands, Oriented to person, place, time, situation, Appropriate for age. Cardiovascular: Denies chest pain, diaphoresis, fatigue, lightheadedness, palpitations, shortness of breath, syncope, vomiting, Capillary refill < 3 seconds in bilateral fingers toes Patient's skin is warm and dry. Respiratory: Airway is patent Trachea midline Respiratory effort is even, unlabored, Respiratory pattern is regular, symmetrical. GI: Abdomen is non-distended, obese, Bowel sounds present X 4 quads. Abd is soft and non tender Reports nausea. Derm: Skin is intact, is healthy with good turgor, Skin is pink, warm \T\ dry. normal. Musculoskeletal: Circulation, motion, and sensation intact. Range of motion: intact in all extremities. 15:20 Reassessment: Patient is alert, oriented x 3, equal unlabored respirations, skin aa5 warm/dry/pink. Vital Signs: 09:59 BP 170 / 76; Pulse 79; Resp 18; Temp 98; Pulse Ox 100% on R/A; Weight 68.49 kg; Height hb 5 ft. 9 in. (175.26 cm); Pain 8/10; 11:56 BP 150 / 70; Pulse 63; Resp 20; Pulse Ox 100% on R/A; aj 13:22 BP 144 / 78; Pulse 60; Resp 18; Pulse Ox 98% on R/A; aj 09:59 Body Mass Index 22.30 (68.49 kg, 175.26 cm) hb ED Course: 09:54 Patient arrived in ED. mr 09:54 Yung Thomas MD is Private Physician. mr 09:59 Triage completed. hb 10:01 Arm band placed on right wrist. hb 10:05 Caio Cruz MD is Attending Physician. john paul 10:19 Basilia Tran, RN is Primary Nurse. aj 10:31 Patient has correct armband on for positive identification. Placed in gown. Bed in low aj position. Call light in reach. Side rails up X 1. Adult w/ patient. Pulse ox on. NIBP on. 10:38 EKG done, by technical publications writer. reviewed by Caio Cruz MD. 3 11:15 Initial lab(s) drawn, by me, sent to lab. Inserted saline lock: 22 gauge in left dh3 forearm, using aseptic technique. Blood collected. 11:25 Urine collected: clean catch specimen, clear. 3 11:39 X-ray completed. Portable x-ray completed in exam room. Patient tolerated procedure mh1 well. 11:41 XRAY Chest (1 view) In Process Unspecified. EDMS 12:36 Radiology exam delayed due to lab results not completed at this time. (BUN/Creatinine). kw 13:[address] id 13:33 CT completed. Patient tolerated procedure well. Patient moved back from CT. id 13:34 CT Abd/Pelvis - W/Contrast In Process Unspecified. EDMS 14:13 Yung Thomas MD is Referral Physician. [facility] 14:13 Kailash Amaya MD is Referral Physician. john paul 15:20 IV discontinued, intact, bleeding controlled, No redness/swelling at site. Pressure aa5 dressing applied. 15:25 No provider procedures requiring assistance completed. aa5 Administered Medications: 11:34 Drug: NS 0.9% 1000 ml Route: IV; Rate: 125 ml/hr; Site: left forearm; aj 13:41 Drug: NS 0.9% 1000 ml Route: IV; Rate: 1 bolus; Site: left forearm; aj 14:15 Drug: Magnesium Sulfate 1 grams Route: IVPB; Infused Over: 1 hrs; Site: left forearm; aj 15:20 Follow up: Response: No adverse reaction; IV Status: Completed infusion aa5 Outcome: 14:13 Discharge ordered by . john paul 15:25 Discharged to home ambulatory, with family. aa5 15:25 Condition: stable 15:25 Discharge instructions given to patient, family, Instructed on discharge instructions, follow up and referral plans. medication usage, Demonstrated understanding of instructions, follow-up care, medications, Prescriptions given X 3. 15:29 Patient left the ED. dm5 Signatures: Dispatcher [employer] EDCT Alondra Patino RN RN dm5 Myers, Amanda, RN RN aj Anderson, Corey, MD MD cha Rivera, Maria mr Harvey, Martha 1 Sunshine Ndiaye, JAVAN RN aa5 Isatu Keyes RN RN Joshua, Lucretia Rodriguez 3 Stephanie Doe 1 Mary Jo Child 3
--- NOTE | 2017-07-19 14:13 | EDPHYS ---
Physician Documentation [facility] Name: Maurice Morfin Age: 67 yrs Sex: Male : 1950 Arrival Date: 07/19/2017 Time: 09:54 Bed 26 Private MD: Yung Thomas ED Physician Caio Cruz HPI: 07/19 12:11 This 67 yrs old Male presents to ER via Ambulatory with complaints of john paul Abdominal Pain. 12:11 The patient presents with abdominal pain in the upper abdomen, in the lower abdomen. john paul Onset: The symptoms/episode began/occurred 2 day(s) ago. The symptoms do not radiate. Associated signs and symptoms: none. The symptoms are described as constant, crampy. Severity of pain: At its worst the pain was mild moderate. The patient has not experienced similar symptoms in the past. Historical: - Allergies: 10: NKDA; hb - Home Meds: 10: albuterol sulfate 2.5 mg /3 mL (0.083 %) Inhl nebu for Chronic Obstructive Pulmonary hb Disease [Active]; aspirin 81 mg Oral chew 1 tab once daily [Active]; clopidogrel 75 mg Oral tab 1 tab once daily [Active]; ipratropium bromide (bulk) miscellaneous powd daily [Active]; metoprolol tartrate 25 mg Oral tab 1 tab 2 times per day for Hypertension [Active]; omeprazole 20 mg Oral cpDR 1 cap once daily for Gastroesophageal reflux [Active]; Protonix 40 mg Oral TbEC 1 tab once daily [Active]; Symbicort 160-4.5 mcg/actuation inhalation HFAA 2 puffs 2 times per day for Bronchospasm Prevention with COPD [Active]; tamsulosin 0.4 mg Oral cp24 1 cap once daily [Active]; - PMHx: 10:01 Cholelithiasis; COPD; CVA; Dementia; enlarged prostate; Hernia; Hypertension; WA; hb - PSHx: 10:01 PACEMAKER; Heart stents; hb - Immunization history:: Adult Immunizations up to date. - Social history:: Smoking status: Patient uses tobacco products, smokes one-half pack cigarettes per day. - Family history:: not pertinent. ROS: 12:11 Constitutional: Negative for fever, chills, and weight loss, Eyes: Negative for injury, john paul pain, redness, and discharge, ENT: Negative for injury, pain, and discharge, Neck: Negative for injury, pain, and swelling, Cardiovascular: Negative for chest pain, palpitations, and edema, Respiratory: Negative for shortness of breath, cough, wheezing, and pleuritic chest pain, Back: Negative for injury and pain, : Negative for injury, bleeding, discharge, and swelling, MS/Extremity: Negative for injury and deformity, Skin: Negative for injury, rash, and discoloration, Neuro: Negative for headache, weakness, numbness, tingling, and seizure, Psych: Negative for depression, anxiety, suicide ideation, homicidal ideation, and hallucinations, Allergy/Immunology: Negative for hives, rash, and allergies, Endocrine: Negative for neck swelling, polydipsia, polyuria, polyphagia, and marked weight changes, Hematologic/Lymphatic: Negative for swollen nodes, abnormal bleeding, and unusual bruising. 12:11 Abdomen/GI: Positive for abdominal pain, of the epigastric area, right upper quadrant, left upper quadrant, right lower quadrant and left lower quadrant. Exam: 12:12 Constitutional: This is a well developed, well nourished patient who is awake, alert, john paul and in no acute distress. Head/Face: Normocephalic, atraumatic. Eyes: Pupils equal round and reactive to light, extra-ocular motions intact. Lids and lashes normal. Conjunctiva and sclera are non-icteric and not injected. Cornea within normal limits. Periorbital areas with no swelling, redness, or edema. ENT: Nares patent. No nasal discharge, no septal abnormalities noted. Tympanic membranes are normal and external auditory canals are clear. Oropharynx with no redness, swelling, or masses, exudates, or evidence of obstruction, uvula midline. Mucous membranes moist. Neck: Trachea midline, no thyromegaly or masses palpated, and no cervical lymphadenopathy. Supple, full range of motion without nuchal rigidity, or vertebral point tenderness. No Meningismus. Chest/axilla: Normal chest wall appearance and motion. Nontender with no deformity. No lesions are appreciated. Cardiovascular: Regular rate and rhythm with a normal S1 and S2. No gallops, murmurs, or rubs. Normal PMI, no JVD. No pulse deficits. Respiratory: Lungs have equal breath sounds bilaterally, clear to auscultation and percussion. No rales, rhonchi or wheezes noted. No increased work of breathing, no retractions or nasal flaring. Back: No spinal tenderness. No costovertebral tenderness. Full range of motion. Male : Normal genitalia with no discharge or lesions. Skin: Warm, dry with normal turgor. Normal color with no rashes, no lesions, and no evidence of cellulitis. MS/ Extremity: Pulses equal, no cyanosis. Neurovascular intact. Full, normal range of motion. Neuro: Awake and alert, GCS 15, oriented to person, place, time, and situation. Cranial nerves II-XII grossly intact. Motor strength 5/5 in all extremities. Sensory grossly intact. Cerebellar exam normal. Normal gait. Psych: Awake, alert, with orientation to person, place and time. Behavior, mood, and affect are within normal limits. 12:12 Abdomen/GI: Inspection: abdomen appears normal, Bowel sounds: normal, Palpation: mild abdominal tenderness, in all quadrants. Vital Signs: 09:59 BP 170 / 76; Pulse 79; Resp 18; Temp 98; Pulse Ox 100% on R/A; Weight 68.49 kg; Height hb 5 ft. 9 in. (175.26 cm); Pain 8/10; 11:56 BP 150 / 70; Pulse 63; Resp 20; Pulse Ox 100% on R/A; aj 13:22 BP 144 / 78; Pulse 60; Resp 18; Pulse Ox 98% on R/A; aj 09:59 Body Mass Index 22.30 (68.49 kg, 175.26 cm) hb MDM: 10:05 Patient medically screened. [facility] 12:13 Data reviewed: vital signs, nurses notes, lab test result(s), EKG, radiologic studies, [facility] CT scan, plain films. 07/19 10:26 Order name: Basic Metabolic Panel [facility] 07/19 10:26 Order name: BNP 07/19 10:26 Order name: CBC with Diff [facility] 07/19 10:26 Order name: Ckmb [facility] 07/19 10:26 Order name: CPK [facility] 07/19 10:26 Order name: LFT's 07/19 10:26 Order name: Magnesium [facility] 07/19 10:26 Order name: PT-INR; Complete Time: 12:10 [facility] 07/19 10:26 Order name: Ptt, Activated; Complete Time: 12:10 [facility] 07/19 10:26 Order name: Troponin (emerg Dept Use Only); Complete Time: 12:10 [facility] 07/19 10:26 Order name: Lipase [facility] 07/19 10:26 Order name: Urine Culture [facility] 07/19 10:27 Order name: Basic Metabolic Panel [facility] 07/19 10:27 Order name: BNP B-Type Natriuretic Peptide; Complete Time: 12:10 [facility] 07/19 10:26 Order name: XRAY Chest (1 view); Complete Time: 12:10 [facility] 07/19 10:26 Order name: EKG; Complete Time: 10:27 [facility] 07/19 10:26 Order name: Cardiac monitoring; Complete Time: 14:42 [facility] 07/19 10:26 Order name: EKG - Nurse/Tech; Complete Time: 11:08 [facility] 07/19 10:26 Order name: IV Saline Lock; Complete Time: 11:34 [facility] 07/19 10:26 Order name: Labs collected and sent; Complete Time: 11:34 [facility] 07/19 10:26 Order name: O2 Per Protocol; Complete Time: 11:08 [facility] 07/19 10:26 Order name: O2 Sat Monitoring; Complete Time: 11:08 [facility] 07/19 10:26 Order name: Urine Dipstick-Ancillary (obtain specimen); Complete Time: 12:06 [facility] 07/19 10:27 Order name: CBC with Automated Diff; Complete Time: 12:10 [facility] 07/19 11:35 Order name: Urine Dipstick--Ancillary (enter results); Complete Time: 13:30 07/19 12:10 Order name: CT Abd/Pelvis - W/Contrast; Complete Time: 14:12 [facility] Administered Medications: 11:34 Drug: NS 0.9% 1000 ml Route: IV; Rate: 125 ml/hr; Site: left forearm; aj 13:41 Drug: NS 0.9% 1000 ml Route: IV; Rate: 1 bolus; Site: left forearm; aj 14:15 Drug: Magnesium Sulfate 1 grams Route: IVPB; Infused Over: 1 hrs; Site: left forearm; aj 15:20 Follow up: Response: No adverse reaction; IV Status: Completed infusion aa5 Disposition: 07/19/17 14:13 Discharged to Home. Impression: Abdominal tenderness. - Condition is Stable. - Discharge Instructions: Abdominal Pain, Adult, Abdominal Pain, Adult, [id number]. - Prescriptions for Bentyl 20 mg Oral Tablet - take 1 tablet by ORAL route every 6 hours As needed; 20 tablet. Pepcid 20 mg Oral Tablet - take 1 tablet by ORAL route every 12 hours for 10 days; 20 tablet. Zofran 4 mg Oral Tablet - take 1 tablet by ORAL route every 12 hours As needed; 20 tablet. - Medication Reconciliation Form, Thank You Letter, Antibiotic Education, Prescription Opioid Use form. - Follow up: Yung Thomas; When: 2 - 3 days; Reason: Recheck today's complaints, Continuance of care, Re-evaluation by your physician. Follow up: Dr. Kailash Amaya; When: 2 - 3 days; Reason: Recheck today's complaints, Continuance of care, Re-evaluation by your physician. - Problem is new. - Symptoms have improved. Signatures: Dispatcher [employer] EDMS Alondra Patino RN RN dm5 Basilia Tran RN RN aj Anderson, Corey, MD MD cha Baxter, Heather, RN RN hb Calderon, Audri RN aa5 Corrections: (The following items were deleted from the chart) 15:29 14:13 07/19/2017 14:13 Discharged to Home. Impression: Abdominal tenderness. Condition dm5 is Stable. Discharge Instructions: Abdominal Pain, Adult, Abdominal Pain, Adult, [id number]. Prescriptions for Bentyl 20 mg Oral Tablet - take 1 tablet by ORAL route every 6 hours As needed; 20 tablet, Pepcid 20 mg Oral Tablet - take 1 tablet by ORAL route every 12 hours for 10 days; 20 tablet, Zofran 4 mg Oral Tablet - take 1 tablet by ORAL route every 12 hours As needed; 20 tablet. and Forms are Medication Reconciliation Form, Thank You Letter, Antibiotic Education, Prescription Opioid Use. Follow up: Yung Thomas; When: 2 - 3 days; Reason: Recheck today's complaints, Continuance of care, Re-evaluation by your physician. Follow up: Dr. Kailash Amaya; When: 2 - 3 days; Reason: Recheck today's complaints, Continuance of care, Re-evaluation by your physician. Problem is new. Symptoms have improved. john paul
[2017-07-19] MEDS ORDERED: MAGNESIUM SULFATE 1 gm IVPB 1 GM/100 ML BAG IV ONE (14:21)
--- NOTE | 2017-07-19 14:42 | EKG ---
Test Date: 2017-07-19 Test Time: 10:38:02 Physical Therapy Professor: LIZBETH MEASUREMENT RESULTS: Intervals: Rate: 71 DE: 170 QRSD: 76 QT: 370 QTc: 402 Keller: P: 68 DE: 170 QRS: 49 T: 73 INTERPRETIVE STATEMENTS: Normal sinus rhythm Nonspecific ST abnormality Abnormal ECG Compared to ECG 07/09/2017 13:59:35 ST (T wave) deviation now present Atrial-paced complex(es) or rhythm no longer present Electronically Signed On 07-19-17 14:42:05 CDT by Epifanio Gonzalez
[2017-07-19 15:33] VITALS: TEMP 98
[2017-07-19 15:36] VITALS: BP 144/78; O2SAT 98
[2017-07-19 23:29] LABS: Sodium Level 135 mEq/L (135-145)
== END 2017-07-19 15:29 | disposition home or self-care (01) ==
LOC: ER 09:51
DX: R10.819 Abdominal tenderness, unspecified site (principal); I10 Essential (primary) hypertension; J44.9 Chronic obstructive pulmonary disease, unspecified; F17.210 Nicotine dependence, cigarettes, uncomplicated; F03.90 Unspecified dementia, unspecified severity, without behavioral disturbance, psychotic disturbance, mood disturbance, and anxiety; Z95.0 Presence of cardiac pacemaker; Z95.818 Presence of other cardiac implants and grafts; Z79.82 Long term (current) use of aspirin
CPT/HCPCS: 36415; 71045; 74177; 80048; 80076; 81003; 82550; 82553; 83690; 83735; 83880; 84484; 85025; 85610; 85730; 87086; 87088; 93005; J3475; J7030; Q9967; 96365; 99284

== ENCOUNTER 2017-07-26 08:23 | Day surgery (SDC) | payer OTHER ==
[2017-07-21 11:46] LABS: Absolute Monocytes 0.6 K/uL (0.1-1.3); Absolute Neutrophil 3.9 K/uL (1.8-8.0); Basophils % 1.4 % (0-1.3); Eosinophils % 1.7 % (0-4.4); Hematocrit 41.9 % (39.6-49.0); Lymphocytes % 29.2 % (15.3-44.8); MCH 29.3 pg (27.0-35.0); MCV 88.8 fL (80-100); MPV 9.3 fL (7.6-11.3); RBC Red Blood Cell Count 4.72 M/uL (4.33-5.43)
[2017-07-21 12:09] LABS: BUN Blood Urea Nitrogen 14 mg/dL (6-20); Bicarbonate 27 mEq/L (21-31); Glucose Level 94 mg/dL (65-120); Potassium 4.2 mEq/L (3.6-5.0); Sodium Level 136 mEq/L (135-145)
[2017-07-21 12:57] LABS: Albumin 4.1 g/dL (3.2-5.5); Bilirubin Direct 0.1 mg/dL (0-0.2); Bilirubin Total 0.5 mg/dL (0.3-1.2); Protein, Total 7.8 g/dL (6.0-8.3)
--- OUTSIDE RECORDS SUMMARY | 2017-07-26 08:25 | XMS REPORT | Clinical Summary ---
:1950 Demographics Address [address] [place] [address] Home Phone Mobile Phone Preferred Language Georgian Marital Status Unknown Uatsdin Affiliation Unknown Race White Ethnic Group Not or Author Organization [facility] Address [address] [place] [address] Phone Support Name Relationship Address Phone Mami Pena [address] [place] [address] Unavailable Naturalson 11 [address] [place] [address] Care Team Providers Name Role Phone Unavailable [...] prior to 03/12 arrival Acute ischemic stroke ([facility]) 03/11/2017 HLD (hyperlipidemia) 01/17/2016 Peripheral vascular disease ([facility]) 01/14/2016 Postoperative anemia 01/14/2016 Coronary artery disease involving [place] coronary artery 01/10/2016 PAD (peripheral artery disease) ([facility]) 01/10/2016 HTN (hypertension) 01/10/2016 Iliac artery stenosis, bilateral ([facility]) 01/10/2016 Unstable angina ([facility]) 01/10/2016 COPD (chronic obstructive pulmonary disease) ([facility]) 01/10/2016 Tobacco abuse 01/10/2016 ACS (acute coronary syndrome) ([facility]) 01/10/2016 Encounters Date Type Specialty Care Team Description 03/11/2017 - Hospital Encounter General Internal Corbin Garcia Acute ischemic 03/14/2017 Medicine MD Doug stroke Stephanie Lugo ([facility]);Received MD Addie tissue plasminogen activator (t-PA) less than 24 hours prior to arrival;Essential hypertension;Periph eral vascular disease ([facility]);Tobacco abuse;Tobacco abuse counseling after 07/25/2016 Social History Tobacco Use Types Packs/Day Years Used Date Current Every Day Smoker Cigarettes 0.5 50 Smokeless Tobacco: Never Used Tobacco Cessation: Ready to Quit: No; Counseling Given: No Comments: 5-6 cigarettes a day Alcohol Use Drinks/Week oz/Week Comments No Sex Assigned at Date Recorded Not on file Last Filed Vital Signs Vital Sign Reading Time Taken Blood Pressure 119/65 03/14/2017 7:15 AM HEALTH ANALYTICS CONSULTANT Pulse 60 03/14/2017 7:15 AM HEALTH ANALYTICS CONSULTANT Temperature 35.8 C (96.4 F) 03/14/2017 7:15 AM HEALTH ANALYTICS CONSULTANT Respiratory Rate 17 03/14/2017 7:15 AM HEALTH ANALYTICS CONSULTANT Oxygen Saturation 96% 03/14/2017 7:15 AM HEALTH ANALYTICS CONSULTANT Inhaled Oxygen Concentration - - Weight 70.4 kg (155 lb 3.3 oz) 03/11/2017 11:00 PM HEALTH ANALYTICS CONSULTANT Height 172.7 cm (5' 8") 03/11/2017 11:00 PM HEALTH ANALYTICS CONSULTANT Body Mass Index 23.6 03/11/2017 11:00 PM HEALTH ANALYTICS CONSULTANT Plan of Treatment Health Maintenance Due Date Last Done Comments INFLUENZA VACCINE 12/06/2017 Implants Implanted Type Area Endodontic Assistant Device Expiration Model / Identifier Date Serial / Lot Grft Eptfe-Heparin Rng [id number] - [id number] Graft/Pa N/A: MARIELENA PEREZE & 09/01/2019 [id number] / Implanted: Qty: 1 on 01/13/2016 by Oniel Smith MD [facility] [id number] / Results ARRYTHMIA IMPLANT REPORT - SCAN [...] - 1 % Specimen Performing Laboratory Blood [address] [address] CBC with platelet count + automated diff (03/14/2017 4:53 AM)Only the most recent of4 resultswithin the time period is included. Specimen Performing Laboratory Blood Narrative The following orders were created for panel order CBC with platelet count + automated diff. Procedure Abnormality Status --------- ------ CBC with platelet count ...[[id number]]AbnormalFinal result Please view results for these tests [...] PATIENTS. Specimen Performing Laboratory Blood [facility] [address] ECHOCARDIOGRAM REPORT - SCAN (03/12/2017 4:57 PM)CT [...] MD Report Verified Date/Time:03/12/2017 15:31:17 Reading Location: [address] Neuro Reading Room Procedure Note Interface, External Ris In - 03/12/2017 3:33 PM HEALTH ANALYTICS CONSULTANT FINAL REPORT CT head without contrast 03/12/2017 [...] Report Verified Date/Time: 03/12/2017 15:31:17 Reading Location: [facility] C013V Neuro Reading Room Troponin I (03/12/2017 2:28 PM)Only the most recent of3 resultswithin the time period is included. Component Value Ref Range Troponin I 0.02 0.00 - 0.03 ng/mL Specimen Performing Laboratory Blood - Arm, [place] [address] Narrative Troponin I (TnI) levels must be [...] 414 ms QTC Calculation(Bazett) 414 ms P Armstrong -18 degrees R Armstrong 9 degrees T Armstrong 68 degrees Electronic atrial pacemaker ST abnormality, possible digitalis effect Abnormal ECG No previous ECGs available Confirmed by Jasmeet HAIDER MICHAEL ([id number]) on 03/13/2017 9:39:18 AM Procedure Note Interface, External Ris In - 03/13/2017 9:39 AM HEALTH ANALYTICS CONSULTANT Ventricular Rate 60 BPM Atrial Rate 60 BPM P-R Interval 138 ms QRS Duration 74 ms Q-T Interval 414 ms QTC Calculation(Bazett) 414 ms P Armstrong -18 degrees R Armstrong 9 degrees T Armstrong 68 degrees Electronic atrial pacemaker ST abnormality, possible digitalis effect Abnormal ECG No previous ECGs available Confirmed by Jasmeet HAIDER MICHAEL ([id number]) on 03/13/2017 9:39:18 AM 2D Echo W/Doppler(CW/PW/Color) (03/12/2017 10:53 AM) Component Value Ref Range Ejection Fraction Specimen Performing Laboratory [facility] ECHO HEARTLAB [facility] CPACS Narrative Transthoracic Echocardiography Report (TTE) Demographics Patient Name Tyron PENA of Study 03/12/2017 [id number] GenderMale Visit Number [id number] Chuck [id number] Number [id number] Number Date of Birth1950 Referring Physician Corbin Garcia Age67 year(s) Feed Research Aide Kristopher Muniz MD Physician Fellow CHLOE Melton Procedure Type of Study TTE procedure:2DECHO W DOPPLER(CW/PW/COLOR) Indications:Stroke . Clinical History COPD,CVA,DEMENTIA,ENLARGED PROSTATE,HERNIA CEREBRI,HTN,[place],SMOKING Height: 68 inches Weight: 70.31 kg (155 [...] External Ris In - 03/12/2017 4:15 PM HEALTH ANALYTICS CONSULTANT Transthoracic Echocardiography Report (TTE) Demographics Patient Name MAMI PENA Date of Study 03/12/2017 Gender Male Visit Number [id number] Race Room Number 7518 Number Date of 1950 Referring Physician Corbin Garcia Age 67 year(s) Feed Research Aide Kristopher Engle Interpreting Prosper Muniz MD Physician Fellow CHLOE Melton Procedure Type of Study TTE procedure:2DECHO W DOPPLER(CW/PW/COLOR) Indications:Stroke . Clinical History COPD,CVA,DEMENTIA,ENLARGED PROSTATE,HERNIA CEREBRI,HTN,[place],SMOKING Height: 68 inches Weight: 70.31 kg (155 [...] MD Report Verified Date/Time:03/12/2017 10:06:57 Reading Location: [facility] Radiology Reading Room Procedure Note Interface, External Ris In - 03/12/2017 10:09 AM HEALTH ANALYTICS CONSULTANT FINAL REPORT Two frontal chest images Discussion: [...] Report Verified Date/Time: 03/12/2017 10:06:57 Reading Location: [facility] Radiology Reading Room PHERAL VASCULAR REPORT - SCAN (03/12/2017 8:20 AM)Homocysteine - Fasting ( 03/12/2017 8:13 AM) Component Value Ref Range Homocysteine 11.8 5.1 - 15.4 umol/L Specimen Performing Laboratory Blood - [place], [address] [address] Narrative Fasting Hemoglobin A1c - Fasting (03/12/2017 8:13 AM) Component Value Ref Range Hemoglobin A1C 5.6 4.3 - 6.1 % Specimen Performing Laboratory Blood - [place], [address] [address] Narrative Fasting Creatine Kinase (CK), Total and MB (03/12/2017 8:13 AM)Only the most recent of2 resultswithin the time period is included. Component Value Ref Range Total CK 59 29 - 200 U/L CK-MB 1.0 0.0 - 6.6 ng/mL MB Relative Index 1.7 % Specimen Performing Laboratory Blood - [place], [address] [address] Narrative CK-MB Reference Range: <6.7Normal 6.7-10.0Borderline >10.0 Abnormal Fasting Fasting Fasting lipid panel (03/12/2017 8:13 AM) Component Value Ref Range Triglycerides 151 mg/dL Cholesterol 147 mg/dL HDL 29 mg/dL LDL Calculated 88 mg/dL Specimen Performing Laboratory Blood - [place], [address] [address] Narrative Triglyceride Reference Range: Low Risk <150 [id number] High Risk 200-499 Very High Risk>=500 Cholesterol Reference Range: Low Risk <200 [id number] High Risk>240 HDL Cholesterol Reference Range: Low Risk >=60 High Risk <40 LDL Cholesterol Reference Range: Optimal<100 Near [id number] [id number] Utgv564-208 Very High >=190 Fasting Carotid doppler bilateral (03/12/2017 6:19 AM) Component Value Ref Range Ejection Fraction Specimen Performing Laboratory [facility] ECHO [facility]ART[facility] Impressions Right Impression 1. There is [...] Demographics Patient Name JEAN,Date of Study2017 RADHA [id number] Age67 Visit Number [id number] Gender Male Accession Number [id number] Date of Birth1950 [facility] Room [id number] Physician Elaine Garcia MD, RPVI Procedure Type of Study: Cerebral: Carotid, CAROTID DOPPLER, BILATERAL. Indications for Study:Stroke. Blood Pressure:Right arm 116/68 mmHg.Left arm 123/73 mmHg. Patient Status:Routine. Study Location:Portable. Technical Quality:Adequate visualization. Risk Factors History of Disease + + +--------+ !Diagnosis !Date!Comments! + + +--------+ !History/Risk Factors: !03/12/2017!Stroke! + + +--------+ Procedure Note Interface, External Ris In - 03/12/2017 7:32 AM HEALTH ANALYTICS CONSULTANT [facility] - Carotid Duplex Study Demographics Patient Name JEAN, Date of Study 03/12/2017 RADHA Age 67 Visit Number [id number] Gender Male Accession Number [id number] Date of 1950 Referring Corbin Garcia Room Number 7518 Physician Feed Research Aide Vangie Plaza Interpreting Cristobal Perez T Physician [...] ng/mL Specimen Performing Laboratory Blood - [place], [address] [address] TSH/Free T4 If Indicated (03/11/2017 11:41 PM) Component Value Ref Range TSH 2.01 0.35 - 4.94 uIU/mL Specimen Performing Laboratory Blood - [place], [address] [address] Prothrombin time/INR (03/11/2017 11:41 PM) Component Value Ref Range Protime 17.2 (H) 11.7 - 14.7 seconds INR 1.4 <=5.9 Specimen Performing Laboratory Blood - [place], [address] [address] Narrative RECOMMENDED COUMADIN/WARFARIN INR THERAPY RANGES STANDARD DOSE: 2.0 - 3.0 Includes: PROPHYLAXIS for venous thrombosis, systemic embolization; TREATMENT for venous thrombosis and/or pulmonary embolus. HIGH RISK: Target INR is 2.5-3.5 for patients with mechanical heart valves. after 07/25/2016
--- OUTSIDE RECORDS SUMMARY | 2017-07-26 08:25 | XMS REPORT ---
:1950 Demographics Address [address] [place] [address] Preferred Language Unknown Marital Status Unknown Voodoo Affiliation Unknown Race Unknown Additional Race(s) Unavailable Ethnic Group Unknown Author Organization [facility] Address [address] [place] [address] [place] [id number] Care Team Providers Name Role Phone MECCA [...] Comments SODIUM (BEAKER) (test 136 meq/L 136-145 mcgj=262) POTASSIUM (BEAKER) (test 4.0 meq/L 3.5-5.1 arvi=691) CHLORIDE (BEAKER) (test 106 meq/L 98-107 kjdf=035) CO2 (BEAKER) (test nbsg=861) 23 meq/L 22-29 BLOOD UREA NITROGEN (BEAKER) 15 mg/dL 7-21 (test rlbi=800) CREATININE (BEAKER) (test 0.92 mg/dL 0.57-1.25 ivuv=495) GLUCOSE RANDOM (BEAKER) 92 mg/dL 70-105 (test nvta=800) CALCIUM (BEAKER) (test 8.7 mg/dL 8.4-10.2 fuxd=923) EGFR (BEAKER) (test 82 mL/min/1.73 sq m ESTIMATED GFR IS NOT goez=6376) ACCURATE CREATININE CLEARANCE IN PREDICTING GLOMERULAR FILTRATION RATE. ESTIMATED GFR IS NOT APPLICABLE FOR DIALYSIS PATIENTS. CBC W/PLT COUNT & AUTO [id number] 05:55:00 Test Item Value Reference Range Comments WHITE BLOOD CELL COUNT (BEAKER) (test eavh=891) 5.9 K/ L 3.5-10.5 RED BLOOD CELL COUNT (BEAKER) (test sclr=190) 4.25 M/ L 4.63-6.08 HEMOGLOBIN (BEAKER) (test gcgc=207) 12.3 GM/DL 13.7-17.5 HEMATOCRIT (BEAKER) (test coes=349) 37.8 % 40.1-51.0 MEAN CORPUSCULAR VOLUME (BEAKER) (test btbr=444) 88.9 fL 79.0-92.2 MEAN CORPUSCULAR HEMOGLOBIN (BEAKER) (test 28.9 pg 25.7-32.2 fnxm=018) MEAN CORPUSCULAR HEMOGLOBIN CONC (BEAKER) (test 32.5 GM/DL 32.3-36.5 vwsw=822) RED CELL DISTRIBUTION WIDTH (BEAKER) (test 15.9 % 11.6-14.4 pjxs=144) PLATELET COUNT (BEAKER) (test fxov=768) 173 K/CU MM 150-450 MEAN PLATELET VOLUME (BEAKER) (test zlaa=306) 11.5 fL 9.4-12.4 NUCLEATED RED BLOOD CELLS (BEAKER) (test 0 /100 WBC 0-0 ffnn=191) NEUTROPHILS RELATIVE PERCENT (BEAKER) (test 48 % nmrx=830) LYMPHOCYTES RELATIVE PERCENT (BEAKER) (test 34 % pjir=503) MONOCYTES RELATIVE PERCENT (BEAKER) (test 12 % znmq=587) EOSINOPHILS RELATIVE PERCENT (BEAKER) (test 4 % duoy=865) BASOPHILS RELATIVE PERCENT (BEAKER) (test 2 % syvl=326) NEUTROPHILS ABSOLUTE COUNT (BEAKER) (test 2.85 K/ L 1.78-5.38 mwqm=992) LYMPHOCYTES ABSOLUTE COUNT (BEAKER) (test 2.02 K/ L 1.32-3.57 qznj=833) MONOCYTES ABSOLUTE COUNT (BEAKER) (test 0.68 K/ L 0.30-0.82 gpsm=485) EOSINOPHILS ABSOLUTE COUNT (BEAKER) (test 0.25 K/ L 0.04-0.54 engs=960) BASOPHILS ABSOLUTE COUNT (BEAKER) (test 0.09 K/ L 0.01-0.08 cvwn=588) IMMATURE GRANULOCYTES-RELATIVE PERCENT (BEAKER) 1 % 0-1 (test qmzb=8696) CBC W/PLT COUNT & AUTO [id number] 05:15:00 Test Item Value Reference Range Comments WHITE BLOOD CELL COUNT (BEAKER) (test sdiq=715) 5.4 K/ L 3.5-10.5 RED BLOOD CELL COUNT (BEAKER) (test xklo=920) 4.34 M/ L 4.63-6.08 HEMOGLOBIN (BEAKER) (test qimx=874) 12.5 GM/DL 13.7-17.5 HEMATOCRIT (BEAKER) (test wlvc=366) 39.0 % 40.1-51.0 MEAN CORPUSCULAR VOLUME (BEAKER) (test djgo=261) 89.9 fL 79.0-92.2 MEAN CORPUSCULAR HEMOGLOBIN (BEAKER) (test 28.8 pg 25.7-32.2 glpo=907) MEAN CORPUSCULAR HEMOGLOBIN CONC (BEAKER) (test 32.1 GM/DL 32.3-36.5 pkap=611) RED CELL DISTRIBUTION WIDTH (BEAKER) (test 15.9 % 11.6-14.4 ogsk=746) PLATELET COUNT (BEAKER) (test rzuz=871) 162 K/CU MM 150-450 MEAN PLATELET VOLUME (BEAKER) (test bwkb=099) 10.6 fL 9.4-12.4 NUCLEATED RED BLOOD CELLS (BEAKER) (test 0 /100 WBC 0-0 scdu=282) NEUTROPHILS RELATIVE PERCENT (BEAKER) (test 52 % gtwd=400) LYMPHOCYTES RELATIVE PERCENT (BEAKER) (test 31 % wvyk=754) MONOCYTES RELATIVE PERCENT (BEAKER) (test 11 % vchx=134) EOSINOPHILS RELATIVE PERCENT (BEAKER) (test 4 % wkmg=497) BASOPHILS RELATIVE PERCENT (BEAKER) (test 2 % hhkt=775) NEUTROPHILS ABSOLUTE COUNT (BEAKER) (test 2.78 K/ L 1.78-5.38 svwc=079) LYMPHOCYTES ABSOLUTE COUNT (BEAKER) (test 1.69 K/ L 1.32-3.57 jcat=612) MONOCYTES ABSOLUTE COUNT (BEAKER) (test 0.59 K/ L 0.30-0.82 bxad=958) EOSINOPHILS ABSOLUTE COUNT (BEAKER) (test 0.21 K/ L 0.04-0.54 hfoc=764) BASOPHILS ABSOLUTE COUNT (BEAKER) (test 0.09 K/ L 0.01-0.08 bumh=894) IMMATURE GRANULOCYTES-RELATIVE PERCENT (BEAKER) 1 % 0-1 (test ejtb=7463) CT, BRAIN, WITHOUT [id number] 15:31:00FINAL REPORT CT head without contrast 03/12/2017 [...] Paez Verified Date/Time: 03/12/2017 15:31:17 Reading Location: [address] Neuro Reading Room TROPONIN [id number] 15:26:00 Test Item Value Reference Range Comments TROPONIN I (KYARA) (test pvsn=048) 0.02 ng/mL 0.00-0.03 Troponin I (TnI) levels [...] acidosis, acute neurological disease, and persistent tachyarrhythmia.HEMOGLOBIN [id number] 12:38:00 Test Item Value Reference Range Comments HEMOGLOBIN A1C (KYARA) (test cwxs=085) 5.6 % 4.3-6.1 FastingRAD, CHEST, 1 VIEW, NON [id number] 10:06:00Reason for exam:->rule out pneumoniaShould this be [...] Benites Verified Date/Time: 03/12/2017 10:06:57 Reading Location: [facility] Radiology Reading Room [id number] 09:08:00 Test Item Value Reference Range Comments HOMOCYSTEINE (BEAKER) (test yciu=131) 11.8 umol/L 5.1-15.4 FastingCREATINE KINASE (CK), TOTAL AND [id number] 08:55:00 Test Item Value Reference Range Comments CREATINE KINASE TOTAL (BEAKER) (test qkzm=074) 59 U/L 29-200 CREATINE KINASE-MB (BEAKER) (test kydd=617) 1.0 ng/mL 0.0-6.6 CREATINE KINASE-MB INDEX (BEAKER) (test yuoa=557) 1.7 % CK-MB Reference Range:<6.7 Normal6.7-10.0 Borderline>10.0 AbnormalFastingFastingTROPONIN [id number] 08:55:00 Test Item Value Reference Range Comments TROPONIN I (BEAKER) (test ypfp=557) < ng/mL 0.00-0.03 Troponin I (TnI) levels [...] acidosis, acute neurological disease, and persistent tachyarrhythmia.FastingLIPID [id number] 08:48:00 Test Item Value Reference Range Comments TRIGLYCERIDES (BEAKER) (test xzuo=344) 151 mg/dL CHOLESTEROL (BEAKER) (test cbwa=003) 147 mg/dL HDL CHOLESTEROL (BEAKER) (test miow=707) 29 mg/dL LDL CHOLESTEROL CALCULATED (BEAKER) (test 88 mg/dL lome=834) Triglyceride Reference Range: Low Risk <150 Borderline 150- 199 High Risk 200-499 Very High Risk >=500Cholesterol Reference Range: Low Risk <200 Borderline 200-239 High Risk > 240HDL Cholesterol Reference Range: Low Risk >=60 High Risk <40LDL Cholesterol Reference Range: Optimal <100 Near Optimal 100-129 Borderline 130-159 High 160-189 Very High >=190 FastingBASIC METABOLIC [id number] 08:48:00 Test Item Value Reference Range Comments SODIUM (BEAKER) (test 136 meq/L 136-145 zocd=767) POTASSIUM (BEAKER) (test 4.4 meq/L 3.5-5.1 oduj=693) CHLORIDE (BEAKER) (test 104 meq/L 98-107 lqgo=491) CO2 (BEAKER) (test 25 meq/L 22-29 leyw=434) BLOOD UREA NITROGEN 15 mg/dL 7-21 (BEAKER) (test rkxz=538) CREATININE (BEAKER) (test 0.87 mg/dL 0.57-1.25 dmxb=990) GLUCOSE RANDOM (BEAKER) 102 mg/dL 70-105 (test unvk=605) CALCIUM (BEAKER) (test 8.9 mg/dL 8.4-10.2 sfef=192) EGFR (BEAKER) (test 87 mL/min/1.73 sq m ESTIMATED GFR IS NOT hixf=5589) ACCURATE CREATININE CLEARANCE IN PREDICTING GLOMERULAR FILTRATION RATE. ESTIMATED GFR IS NOT APPLICABLE FOR DIALYSIS PATIENTS. FastingCBC W/PLT COUNT & AUTO [id number] 08:24:00 Test Item Value Reference Range Comments WHITE BLOOD CELL COUNT (BEAKER) (test sibt=696) 5.7 K/ L 3.5-10.5 RED BLOOD CELL COUNT (BEAKER) (test kktl=459) 4.23 M/ L 4.63-6.08 HEMOGLOBIN (BEAKER) (test jrls=523) 12.3 GM/DL 13.7-17.5 HEMATOCRIT (BEAKER) (test yagb=788) 37.9 % 40.1-51.0 MEAN CORPUSCULAR VOLUME (BEAKER) (test djqx=863) 89.6 fL 79.0-92.2 MEAN CORPUSCULAR HEMOGLOBIN (BEAKER) (test 29.1 pg 25.7-32.2 eicx=484) MEAN CORPUSCULAR HEMOGLOBIN CONC (BEAKER) (test 32.5 GM/DL 32.3-36.5 cgnm=874) RED CELL DISTRIBUTION WIDTH (BEAKER) (test 15.9 % 11.6-14.4 ddtz=554) PLATELET COUNT (BEAKER) (test knsy=051) 156 K/CU MM 150-450 MEAN PLATELET VOLUME (BEAKER) (test kkqg=149) 10.2 fL 9.4-12.4 NUCLEATED RED BLOOD CELLS (BEAKER) (test 0 /100 WBC 0-0 ddbc=718) NEUTROPHILS RELATIVE PERCENT (BEAKER) (test 47 % tjou=217) LYMPHOCYTES RELATIVE PERCENT (BEAKER) (test 37 % zemq=738) MONOCYTES RELATIVE PERCENT (BEAKER) (test 12 % zkzk=951) EOSINOPHILS RELATIVE PERCENT (BEAKER) (test 3 % ieef=040) BASOPHILS RELATIVE PERCENT (BEAKER) (test 2 % migo=962) NEUTROPHILS ABSOLUTE COUNT (BEAKER) (test 2.66 K/ L 1.78-5.38 osft=652) LYMPHOCYTES ABSOLUTE COUNT (BEAKER) (test 2.09 K/ L 1.32-3.57 gsrc=494) MONOCYTES ABSOLUTE COUNT (BEAKER) (test 0.70 K/ L 0.30-0.82 stvz=839) EOSINOPHILS ABSOLUTE COUNT (BEAKER) (test 0.15 K/ L 0.04-0.54 ppev=458) BASOPHILS ABSOLUTE COUNT (BEAKER) (test 0.09 K/ L 0.01-0.08 pgkg=131) IMMATURE GRANULOCYTES-RELATIVE PERCENT (BEAKER) 1 % 0-1 (test xixx=3983) TSH/FREE T4 IF [id number] 03:38:00 Test Item Value Reference Range Comments THYROID STIMULATING HORMONE (BEAKER) (test 2.01 uIU/mL 0.35-4.94 zlgb=894) VITAMIN B12 AND [id number] 03:38:00 Test Item Value Reference Range Comments VITAMIN B12 (BEAKER) (test zdqs=551) 1008 pg/mL 213-816 FOLATE (BEAKER) (test yutd=829) 8.4 ng/mL >=7.0 CREATINE KINASE (CK), TOTAL AND [id number] 01:03:00 Test Item Value Reference Range Comments CREATINE KINASE TOTAL (BEAKER) (test suab=436) 66 U/L 29-200 CREATINE KINASE-MB (BEAKER) (test uull=036) 1.4 ng/mL 0.0-6.6 CREATINE KINASE-MB INDEX (BEAKER) (test arof=794) 2.1 % CK-MB Reference Range:<6.7 Normal6.7-10.0 Borderline>10.0 AbnormalTROPONIN [id number] 01:03:00 Test Item Value Reference Range Comments TROPONIN I (BEAKER) (test rskz=663) 0.02 ng/mL 0.00-0.03 Troponin I (TnI) levels [...] acute neurological disease, and persistent tachyarrhythmia.BASIC METABOLIC [id number] 00:56:00 Test Item Value Reference Range Comments SODIUM (BEAKER) (test 136 meq/L 136-145 imlt=396) POTASSIUM (BEAKER) (test 3.9 meq/L 3.5-5.1 tyrt=106) CHLORIDE (BEAKER) (test 104 meq/L 98-107 ifcf=821) CO2 (BEAKER) (test 24 meq/L 22-29 ocsx=333) BLOOD UREA NITROGEN 14 mg/dL 7-21 (BEAKER) (test ryjs=225) CREATININE (BEAKER) (test 0.87 mg/dL 0.57-1.25 ynrv=710) GLUCOSE RANDOM (BEAKER) 104 mg/dL 70-105 (test ccse=178) CALCIUM (BEAKER) (test 9.2 mg/dL 8.4-10.2 abvv=267) EGFR (BEAKER) (test 87 mL/min/1.73 sq m ESTIMATED GFR IS NOT gdvy=1309) ACCURATE CREATININE CLEARANCE IN PREDICTING GLOMERULAR FILTRATION RATE. ESTIMATED GFR IS NOT APPLICABLE FOR DIALYSIS PATIENTS. PROTHROMBIN TIME/[id number] 00:27:00 Test Item Value Reference Range Comments PROTIME (BEAKER) (test spbp=137) 17.2 seconds 11.7-14.7 INR (BEAKER) (test ylxo=701) 1.4 <=5.9 RECOMMENDED COUMADIN/WARFARIN INR THERAPY RANGESSTANDARD DOSE: 2.0 - 3.0 Includes: PROPHYLAXIS forvenous thrombosis, systemic embolization; TREATMENT for venous thrombosis and/or pulmonary embolus.HIGH RISK: Target INR is 2.5-3.5 for patients with mechanical heart valves.CBC W/PLT COUNT & AUTO [id number] 00:01:00 Test Item Value Reference Range Comments WHITE BLOOD CELL COUNT (BEAKER) (test crbd=569) 8.2 K/ L 3.5-10.5 RED BLOOD CELL COUNT (BEAKER) (test jrgm=047) 4.57 M/ L 4.63-6.08 HEMOGLOBIN (BEAKER) (test layk=913) 13.2 GM/DL 13.7-17.5 HEMATOCRIT (BEAKER) (test rxfe=119) 40.5 % 40.1-51.0 MEAN CORPUSCULAR VOLUME (BEAKER) (test hqtk=965) 88.6 fL 79.0-92.2 MEAN CORPUSCULAR HEMOGLOBIN (BEAKER) (test 28.9 pg 25.7-32.2 izzv=557) MEAN CORPUSCULAR HEMOGLOBIN CONC (BEAKER) (test 32.6 GM/DL 32.3-36.5 itxc=824) RED CELL DISTRIBUTION WIDTH (BEAKER) (test 15.9 % 11.6-14.4 sptk=227) PLATELET COUNT (BEAKER) (test vtnc=444) 198 K/CU MM 150-450 MEAN PLATELET VOLUME (BEAKER) (test xmpy=092) 11.2 fL 9.4-12.4 NUCLEATED RED BLOOD CELLS (BEAKER) (test 0 /100 WBC 0-0 khcb=770) NEUTROPHILS RELATIVE PERCENT (BEAKER) (test 57 % xzei=134) LYMPHOCYTES RELATIVE PERCENT (BEAKER) (test 28 % ejbg=999) MONOCYTES RELATIVE PERCENT (BEAKER) (test 10 % nbkp=820) EOSINOPHILS RELATIVE PERCENT (BEAKER) (test 3 % ibza=122) BASOPHILS RELATIVE PERCENT (BEAKER) (test 1 % aihk=885) NEUTROPHILS ABSOLUTE COUNT (BEAKER) (test 4.66 K/ L 1.78-5.38 beza=014) LYMPHOCYTES ABSOLUTE COUNT (BEAKER) (test 2.29 K/ L 1.32-3.57 qbrl=316) MONOCYTES ABSOLUTE COUNT (BEAKER) (test 0.81 K/ L 0.30-0.82 mwth=872) EOSINOPHILS ABSOLUTE COUNT (BEAKER) (test 0.25 K/ L 0.04-0.54 iinu=561) BASOPHILS ABSOLUTE COUNT (BEAKER) (test 0.10 K/ L 0.01-0.08 covh=833) IMMATURE GRANULOCYTES-RELATIVE PERCENT (BEAKER) 1 % 0-1 (test igbf=6471)
[2017-07-26] MEDS ORDERED: Ringers Lactate 1,000 ML IV ONE ×2 (09:05→10:14)
[2017-07-26] MEDS ORDERED: CEFOXITIN/SWI 1gm 1 GM/10 ML SYR ONE (09:05)
[2017-07-26] MEDS ORDERED: MIDAZOLAM HCL 2 MG/2 ML INJ ONE (09:13)
[2017-07-26] MEDS ORDERED: ROCURONIUM 50 MG/5 ML VIAL IV ONE (09:13)
[2017-07-26] MEDS ORDERED: FENTANYL CITR 100 MCG/2 ML ONE (09:13)
[2017-07-26] MEDS ORDERED: PROPOFOL 200 MG/20 ML VIAL IV ONE (09:13)
[2017-07-26] MEDS ORDERED: LIDOCAINE 2% MPF 5 ML VIAL ONE (09:13)
[2017-07-26] MEDS ORDERED: DEXAMETHASONE 10 MG/ML VIAL ONE (09:48)
[2017-07-26] MEDS ORDERED: ONDANSETRON HCL 40 MG/20 ML VIAL ONE (09:50)
[2017-07-26] MEDS ORDERED: GLYCOPYRROLATE 0.2 MG/ML SYR ONE (10:09)
[2017-07-26] MEDS ORDERED: NEOSTIGMINE 1 MG/ML -5 ML SYRINGE ONE (10:23)
[2017-07-26] MEDS ORDERED: MEPERIDINE HCL 50 MG/ML AMP ONE (10:28)
[2017-07-26] MEDS ORDERED: PROMETHAZINE 25 MG/ML VIAL ONE (10:31)
[2017-07-26 11:04] VITALS: TEMP 97.2
[2017-07-26 11:14] VITALS: O2SAT 100
[2017-07-26] MEDS ORDERED: ONDANSETRON 4 MG/2 ML VIAL ONE (11:42)
[2017-07-26] MEDS ORDERED: HYDROCODONE/APAP 7.5/325 MG TAB ONE (11:56)
[2017-07-26] MEDS ORDERED: HYDROCODONE/APAP 7.5/325 MG TAB PO ONE (12:00)
[2017-07-26 12:28] VITALS: BP 162/76
--- NOTE | 2017-07-26 21:16 | OP ---
Date of Procedure: 07/26/2017 Surgeon: Kailash Amaya MD Preoperative Diagnosis: Symptomatic cholelithiasis. Postoperative Diagnosis: Symptomatic cholelithiasis. Procedure: Laparoscopic cholecystectomy. Estimated Blood Loss: Minimal. Specimen: Gallbladder. Finding: As above. Anesthesia: General. Complications: None. Disposition: The patient tolerated the procedure in stable condition and taken to the Recovery in go od general condition. Procedure In Detail: The patient was brought to the OR and placed in the supine position. General a nesthesia was begun. The patient was prepped and draped in usual sterile fashion. Marcaine 0.5% was infiltrated locally. A 15-blade was used to make a 1 cm supraumbilical midline incision. Subcutane ous tissue divided. The fascia was identified and divided. A #1 Vicryl stay suture was placed. Per itoneal cavity was entered with blunt dissection. A 12-mm trocar placed into the peritoneal cavity u nder direct vision. Pneumoperitoneum was established. Then, three 5-mm trocars were placed, 1 in th e epigastrium just to the right of midline and 2 in the right subcostal region. Laparoscopy revealed chronic inflammation of the gallbladder. Fundus retracted superiorly. Infundibulum was identified and retracted inferolaterally. Cystic duct and cystic artery were clearly identified with blunt diss ection. Clips placed. Both structures were divided. Cautery was used to remove the gallbladder fro m the liver bed. Bleeding in the liver bed was controlled with cautery. The gallbladder was retriev ed through the umbilicus via an EndoCatch bag. Right upper quadrant was irrigated. Effluent was sasha ar. No evidence of bleeding or bile leakage appreciated. Subsequently, all trocars were removed und er direct vision. Stay sutures were tied to each other across the fascial defect. Subcutaneous woun ds were irrigated. Bleeding controlled with cautery. A 3-0 chromic used for subcutaneous tissue and luciana were used to close skin. Sterile dressing was applied. The patient was awakened and taken to Recovery in good general condition. Discharge Note: The patient will go to Day Surgery and home when stable. Disposition: Home. Condition: Stable. Discharge Instructions: Resume home medications and diet. Activity as tolerated. No heavy lifting. Remove outer dressing in 2 days. Shower. Keep wound clean and dry. Follow up in my office in a [place]. Call for appointment. Tylenol No. 3 one tablet p.o. q.4 p.r.n. pain. /MODL Voice ID: [id number] Report ID: [id number]
== END 2017-07-26 12:30 | disposition home or self-care (01) ==
LOC: OR 08:23
PROVIDERS: ATTEND Surgery
PROC: 0FT44ZZ Resection of Gallbladder, Percutaneous Endoscopic Approach (ICD-10-PCS; principal; 2017-07-26 10:00)
DX: K80.10 Calculus of gallbladder with chronic cholecystitis without obstruction (principal); I10 Essential (primary) hypertension; I25.10 Atherosclerotic heart disease of native coronary artery without angina pectoris; K21.9 Gastro-esophageal reflux disease without esophagitis; N40.0 Benign prostatic hyperplasia without lower urinary tract symptoms; F17.210 Nicotine dependence, cigarettes, uncomplicated; Z95.0 Presence of cardiac pacemaker
CPT/HCPCS: 36415; 47562; 80048; 80076; 82150; 85025; 88304; J1100; J2175; J2250; J2405 ×2; J2550; J2710; J3010; 88305

== ENCOUNTER 2017-08-11 15:00 | Observation (INO) | payer OTHER ==
--- OUTSIDE RECORDS SUMMARY | 2017-08-11 15:02 | XMS REPORT | Clinical Summary ---
:1950 Demographics Address [address] [place] [address] Home Phone Mobile Phone Preferred Language Japanese Marital Status Unknown Synagogue Affiliation Unknown Race White Ethnic Group Not or Author Organization [facility] Address [address] [place] [address] Phone Support Name Relationship Address Phone Mami Pena [address] [place] [address] Unavailable Naturalson 11 [address] [place] [address] Care Team Providers Name Role Phone Unavailable [...] prior to 03/12 arrival Acute ischemic stroke ([facility]) 03/11/2017 HLD (hyperlipidemia) 01/17/2016 Peripheral vascular disease ([facility]) 01/14/2016 Postoperative anemia 01/14/2016 Coronary artery disease involving [place]a shoshone coronary artery 01/10/2016 PAD (peripheral artery disease) ([facility]) 01/10/2016 HTN (hypertension) 01/10/2016 Iliac artery stenosis, bilateral ([facility]) 01/10/2016 Unstable angina ([facility]) 01/10/2016 COPD (chronic obstructive pulmonary disease) ([facility]) 01/10/2016 Tobacco abuse 01/10/2016 ACS (acute coronary syndrome) ([facility]) 01/10/2016 Encounters Date Type Specialty Care Team Description 03/11/2017 - Hospital Encounter General Internal Corbin Garcia Acute ischemic 03/14/2017 Medicine MD Doug stroke Stephanie Lugo ([facility]);Received MD Addie tissue plasminogen activator (t-PA) less than 24 hours prior to arrival;Essential hypertension;Periph eral vascular disease ([facility]);Tobacco abuse;Tobacco abuse counseling after 08/10/2016 Social History Tobacco Use Types Packs/Day Years Used Date Current Every Day Smoker Cigarettes 0.5 50 Smokeless Tobacco: Never Used Tobacco Cessation: Ready to Quit: No; Counseling Given: No Comments: 5-6 cigarettes a day Alcohol Use Drinks/Week oz/Week Comments No Sex Assigned at Date Recorded Not on file Last Filed Vital Signs Vital Sign Reading Time Taken Blood Pressure 119/65 03/14/2017 7:15 AM [employer] Pulse 60 03/14/2017 7:15 AM [employer] Temperature 35.8 C (96.4 F) 03/14/2017 7:15 AM [employer] Respiratory Rate 17 03/14/2017 7:15 AM [employer] Oxygen Saturation 96% 03/14/2017 7:15 AM [employer] Inhaled Oxygen Concentration - - Weight 70.4 kg (155 lb 3.3 oz) 03/11/2017 11:00 PM [employer] Height 172.7 cm (5' 8") 03/11/2017 11:00 PM [employer] Body Mass Index 23.6 03/11/2017 11:00 PM [employer] Plan of Treatment Health Maintenance Due Date Last Done Comments INFLUENZA VACCINE 12/06/2017 Implants Implanted Type Area Auto Rental Supervisor Device Expiration Model / Identifier Date Serial / Lot Grft Eptfe-Heparin Rng [id number] - [id number] Graft/Pa N/A: MARIELENA PEREZE & 09/01/2019 [id number] / Implanted: Qty: 1 on 01/13/2016 by Oniel Smith MD [facility] Arterial ASSC: [facility] [id number] / Results ARRYTHMIA IMPLANT REPORT - SCAN [...] - 1 % Specimen Performing Laboratory Blood [address] [address] CBC with platelet count + automated diff (03/14/2017 4:53 AM)Only the most recent of4 resultswithin the time period is included. Specimen Performing Laboratory Blood Narrative The following orders were created for panel order CBC with platelet count + automated diff. Procedure Abnormality Status --------- ------ CBC with platelet count ...[[id number]]AbnormalFinal result Please view results for these tests [...] PATIENTS. Specimen Performing Laboratory Blood [facility] [address] ECHOCARDIOGRAM REPORT - SCAN (03/12/2017 4:57 PM)CT [...] MD Report Verified Date/Time:03/12/2017 15:31:17 Reading Location: [address] Neuro Reading Room Procedure Note Interface, External Ris In - 03/12/2017 3:33 PM [employer] FINAL REPORT CT head without contrast 03/12/2017 [...] Verified Date/Time: 03/12/2017 15:31:17 Reading Location: [facility] C013V Neuro Reading Room Troponin I (03/12/2017 2:28 PM)Only the most recent of3 resultswithin the time period is included. Component Value Ref Range Troponin I 0.02 0.00 - 0.03 ng/mL Specimen Performing Laboratory Blood - Arm, [place] [address] Narrative Troponin I (TnI) levels must be [...] 414 ms QTC Calculation(Bazett) 414 ms P [place] -18 degrees R [place]urb[place] 9 degrees T [place]urbank 68 degrees Electronic atrial pacemaker ST abnormality, possible digitalis effect Abnormal ECG No previous ECGs available Confirmed by Jasmeet HAIDER MICHAEL ([id number]) on 03/13/2017 9:39:18 AM Procedure Note Interface, External Ris In - 03/13/2017 9:39 AM [employer]CR[employer] Ventricular Rate 60 BPM Atrial Rate 60 BPM P-R Interval 138 ms QRS Duration 74 ms Q-T Interval 414 ms QTC Calculation(Bazett) 414 ms P [place] -18 degrees R [place] 9 degrees T [place] 68 degrees Electronic atrial pacemaker ST abnormality, possible digitalis effect Abnormal ECG No previous ECGs available Confirmed by Jasmeet HAIDER MICHAEL ([id number]) on 03/13/2017 9:39:18 AM 2D Echo W/Doppler(CW/PW/Color) (03/12/2017 10:53 AM) Component Value Ref Range Ejection Fraction Specimen Performing Laboratory [facility] ECHO HEARTLAB MKCKESSROCK CPACS Narrative Transthoracic Echocardiography Report (TTE) Demographics Patient Name Tyron PENA of Study 03/12/2017 [id number] GenderMale Visit Number [id number] Chuck [id number] Number [id number] Number Date of Birth1950 Referring Physician Corbin Garcia Age67 year(s) Automobile Inspector Kristopher Muniz MD Physician Fellow CHLOE Melton Procedure Type of Study TTE procedure:2DECHO W DOPPLER(CW/PW/COLOR) Indications:Stroke . Clinical History COPD,CVA,DEMENTIA,ENLARGED PROSTATE,HERNIA CEREBRI,HTN,OR,SMOKING Height: 68 inches Weight: 70.31 kg (155 [...] External Ris In - 03/12/2017 4:15 PM [employer] Transthoracic Echocardiography Report (TTE) Demographics Patient Name MAMI PENA Date of Study 03/12/2017 Gender Male Visit Number [id number] Race Room Number 7518 Number Date of 1950 Referring Physician Corbin Garcia Age 67 year(s) Automobile Inspector Kristopher Engle Interpreting Prosper Muniz MD Physician Fellow CHLOE Melotn Procedure Type of Study TTE procedure:2DECHO W DOPPLER(CW/PW/COLOR) Indications:Stroke . Clinical History COPD,CVA,DEMENTIA,ENLARGED PROSTATE,HERNIA CEREBRI,HTN,OR,SMOKING Height: 68 inches Weight: 70.31 kg (155 [...] MD Report Verified Date/Time:03/12/2017 10:06:57 Reading Location: [facility] Radiology Reading Room Procedure Note Interface, External Ris In - 03/12/2017 10:09 AM [employer]CRETE [employer] FINAL REPORT Two frontal chest images Discussion: [...] Report Verified Date/Time: 03/12/2017 10:06:57 Reading Location: [facility] Radiology Reading Room PHERAL VASCULAR REPORT - SCAN (03/12/2017 8:20 AM)Homocysteine - Fasting ( 03/12/2017 8:13 AM) Component Value Ref Range Homocysteine 11.8 5.1 - 15.4 umol/L Specimen Performing Laboratory Blood - [place], [address] [address] Narrative Fasting Hemoglobin A1c - Fasting (03/12/2017 8:13 AM) Component Value Ref Range Hemoglobin A1C 5.6 4.3 - 6.1 % Specimen Performing Laboratory Blood - [place], [address] [address] Narrative Fasting Creatine Kinase (CK), Total and MB (03/12/2017 8:13 AM)Only the most recent of2 resultswithin the time period is included. Component Value Ref Range Total CK 59 29 - 200 U/L CK-MB 1.0 0.0 - 6.6 ng/mL MB Relative Index 1.7 % Specimen Performing Laboratory Blood - [place], [address] [address] Narrative CK-MB Reference Range: <6.7Normal 6.7-10.0Borderline >10.0 Abnormal Fasting Fasting Fasting lipid panel (03/12/2017 8:13 AM) Component Value Ref Range Triglycerides 151 mg/dL Cholesterol 147 mg/dL HDL 29 mg/dL LDL Calculated 88 mg/dL Specimen Performing Laboratory Blood - [place], [address] [address] Narrative Triglyceride Reference Range: Low Risk <150 Edpeiujnxg426-132 High Risk 200-499 Very High Risk>=500 Cholesterol Reference Range: Low Risk <200 Gpyxhwdwmw124-815 High Risk>240 HDL Cholesterol Reference Range: Low Risk >=60 High Risk <40 LDL Cholesterol Reference Range: Optimal<100 Near Blqtfmc011-204 Cnvzwoluve334-622 Lbpd496-332 Very High >=190 Fasting Carotid doppler bilateral (03/12/2017 6:19 AM) Component Value Ref Range Ejection Fraction Specimen Performing Laboratory [facility] ECHO HEARTLAB [facility] Impressions Right Impression 1. There is [...] Demographics Patient Name JEAN,Date of Study2017 RADHA [id number] Visit Number [id number] Gender Male Accession Number [id number] Date of Birth1950 [facility] Room [id number] Physician Elaine Garcia MD, RPVI Procedure Type of Study: Cerebral: Carotid, CAROTID DOPPLER, BILATERAL. Indications for Study:Stroke. Blood Pressure:Right arm 116/68 mmHg.Left arm 123/73 mmHg. Patient Status:Routine. Study Location:Portable. Technical Quality:Adequate visualization. Risk Factors History of Disease + + +--------+ !Diagnosis !Date!Comments! + + +--------+ !History/Risk Factors: !03/12/2017!Stroke! + + +--------+ Procedure Note Interface, External Ris In - 03/12/2017 7:32 AM CONCRETE M[employer]ER [employer] PV LAB - Carotid Duplex Study Demographics Patient Name JEAN, Date of Study 03/12/2017 RADHA Age 67 Visit Number [id number] Gender Male Accession Number [id number] Date of 1950 Referring Corbin Garcia Room Number 7518 Physician Automobile Inspector Vangie Plaza Interpreting Cristobal Perez T Physician [...] ng/mL Specimen Performing Laboratory Blood - [place], [address] [address] TSH/Free T4 If Indicated (03/11/2017 11:41 PM) Component Value Ref Range TSH 2.01 0.35 - 4.94 uIU/mL Specimen Performing Laboratory Blood - [place], [address] [address] Prothrombin time/INR (03/11/2017 11:41 PM) Component Value Ref Range Protime 17.2 (H) 11.7 - 14.7 seconds INR 1.4 <=5.9 Specimen Performing Laboratory Blood - [place], [address] [address] Narrative RECOMMENDED COUMADIN/WARFARIN INR THERAPY RANGES STANDARD DOSE: 2.0 - 3.0 Includes: PROPHYLAXIS for venous thrombosis, systemic embolization; TREATMENT for venous thrombosis and/or pulmonary embolus. HIGH RISK: Target INR is 2.5-3.5 for patients with mechanical heart valves. after 08/10/2016
--- OUTSIDE RECORDS SUMMARY | 2017-08-11 15:03 | XMS REPORT ---
:1950 Demographics Address [address] [place] [address] SON Email Address NONE Preferred Language Unknown Marital Status Unknown Presybeterian Affiliation Unknown Race Unknown Additional Race(s) Unavailable Ethnic Group Unknown Author Organization [facility] Address [address] [place] [address] Care Team Providers Name Role Phone MECCA [...] Comments SODIUM (BEAKER) (test 136 meq/L 136-145 qeeo=680) POTASSIUM (BEAKER) (test 4.0 meq/L 3.5-5.1 zitx=109) CHLORIDE (BEAKER) (test 106 meq/L 98-107 obse=681) CO2 (BEAKER) (test rxch=761) 23 meq/L 22-29 BLOOD UREA NITROGEN (BEAKER) 15 mg/dL 7-21 (test zsga=514) CREATININE (BEAKER) (test 0.92 mg/dL 0.57-1.25 lnsl=259) GLUCOSE RANDOM (BEAKER) 92 mg/dL 70-105 (test vven=585) CALCIUM (BEAKER) (test 8.7 mg/dL 8.4-10.2 pqgs=227) EGFR (BEAKER) (test 82 mL/min/1.73 sq m ESTIMATED GFR IS NOT gqey=6242) ACCURATE CREATININE CLEARANCE IN PREDICTING GLOMERULAR FILTRATION RATE. ESTIMATED GFR IS NOT APPLICABLE FOR DIALYSIS PATIENTS. CBC W/PLT COUNT & AUTO [id number] 05:55:00 Test Item Value Reference Range Comments WHITE BLOOD CELL COUNT (BEAKER) (test jomn=847) 5.9 K/ L 3.5-10.5 RED BLOOD CELL COUNT (BEAKER) (test gtho=699) 4.25 M/ L 4.63-6.08 HEMOGLOBIN (BEAKER) (test xakp=634) 12.3 GM/DL 13.7-17.5 HEMATOCRIT (BEAKER) (test nvge=662) 37.8 % 40.1-51.0 MEAN CORPUSCULAR VOLUME (BEAKER) (test mffq=246) 88.9 fL 79.0-92.2 MEAN CORPUSCULAR HEMOGLOBIN (BEAKER) (test 28.9 pg 25.7-32.2 iqhg=376) MEAN CORPUSCULAR HEMOGLOBIN CONC (BEAKER) (test 32.5 GM/DL 32.3-36.5 umfs=377) RED CELL DISTRIBUTION WIDTH (BEAKER) (test 15.9 % 11.6-14.4 qizn=066) PLATELET COUNT (BEAKER) (test uthe=965) 173 K/CU MM 150-450 MEAN PLATELET VOLUME (BEAKER) (test sikh=884) 11.5 fL 9.4-12.4 NUCLEATED RED BLOOD CELLS (BEAKER) (test 0 /100 WBC 0-0 raka=353) NEUTROPHILS RELATIVE PERCENT (BEAKER) (test 48 % qbfi=549) LYMPHOCYTES RELATIVE PERCENT (BEAKER) (test 34 % kjeu=690) MONOCYTES RELATIVE PERCENT (BEAKER) (test 12 % neeb=367) EOSINOPHILS RELATIVE PERCENT (BEAKER) (test 4 % qldz=609) BASOPHILS RELATIVE PERCENT (BEAKER) (test 2 % xdwh=282) NEUTROPHILS ABSOLUTE COUNT (BEAKER) (test 2.85 K/ L 1.78-5.38 qqxt=606) LYMPHOCYTES ABSOLUTE COUNT (BEAKER) (test 2.02 K/ L 1.32-3.57 nwap=644) MONOCYTES ABSOLUTE COUNT (BEAKER) (test 0.68 K/ L 0.30-0.82 qnne=116) EOSINOPHILS ABSOLUTE COUNT (BEAKER) (test 0.25 K/ L 0.04-0.54 gexk=140) BASOPHILS ABSOLUTE COUNT (BEAKER) (test 0.09 K/ L 0.01-0.08 galh=568) IMMATURE GRANULOCYTES-RELATIVE PERCENT (BEAKER) 1 % 0-1 (test xcbu=1706) CBC W/PLT COUNT & AUTO [id number] 05:15:00 Test Item Value Reference Range Comments WHITE BLOOD CELL COUNT (BEAKER) (test vlcq=470) 5.4 K/ L 3.5-10.5 RED BLOOD CELL COUNT (BEAKER) (test mpbg=332) 4.34 M/ L 4.63-6.08 HEMOGLOBIN (BEAKER) (test djhf=600) 12.5 GM/DL 13.7-17.5 HEMATOCRIT (BEAKER) (test gyem=277) 39.0 % 40.1-51.0 MEAN CORPUSCULAR VOLUME (BEAKER) (test qkud=602) 89.9 fL 79.0-92.2 MEAN CORPUSCULAR HEMOGLOBIN (BEAKER) (test 28.8 pg 25.7-32.2 kmnn=272) MEAN CORPUSCULAR HEMOGLOBIN CONC (BEAKER) (test 32.1 GM/DL 32.3-36.5 wngv=513) RED CELL DISTRIBUTION WIDTH (BEAKER) (test 15.9 % 11.6-14.4 aiur=692) PLATELET COUNT (BEAKER) (test cvmw=684) 162 K/CU MM 150-450 MEAN PLATELET VOLUME (BEAKER) (test itlz=666) 10.6 fL 9.4-12.4 NUCLEATED RED BLOOD CELLS (BEAKER) (test 0 /100 WBC 0-0 bdcg=138) NEUTROPHILS RELATIVE PERCENT (BEAKER) (test 52 % bjfn=570) LYMPHOCYTES RELATIVE PERCENT (BEAKER) (test 31 % iihb=241) MONOCYTES RELATIVE PERCENT (BEAKER) (test 11 % ueej=470) EOSINOPHILS RELATIVE PERCENT (BEAKER) (test 4 % vjcj=275) BASOPHILS RELATIVE PERCENT (BEAKER) (test 2 % ljgd=606) NEUTROPHILS ABSOLUTE COUNT (BEAKER) (test 2.78 K/ L 1.78-5.38 szty=641) LYMPHOCYTES ABSOLUTE COUNT (BEAKER) (test 1.69 K/ L 1.32-3.57 spcr=401) MONOCYTES ABSOLUTE COUNT (BEAKER) (test 0.59 K/ L 0.30-0.82 egfo=250) EOSINOPHILS ABSOLUTE COUNT (BEAKER) (test 0.21 K/ L 0.04-0.54 raxc=165) BASOPHILS ABSOLUTE COUNT (BEAKER) (test 0.09 K/ L 0.01-0.08 stjx=812) IMMATURE GRANULOCYTES-RELATIVE PERCENT (BEAKER) 1 % 0-1 (test mhtw=7179) CT, BRAIN, WITHOUT [id number] 15:31:00FINAL REPORT CT head without contrast 03/12/2017 [...] Paez Verified Date/Time: 03/12/2017 15:31:17 Reading Location: [address] Neuro Reading Room TROPONIN [id number] 15:26:00 Test Item Value Reference Range Comments TROPONIN I (KYARA) (test swrk=639) 0.02 ng/mL 0.00-0.03 Troponin I (TnI) levels [...] acidosis, acute neurological disease, and persistent tachyarrhythmia.HEMOGLOBIN [id number] 12:38:00 Test Item Value Reference Range Comments HEMOGLOBIN A1C (KYARA) (test lgan=591) 5.6 % 4.3-6.1 FastingRAD, CHEST, 1 VIEW, NON [id number] 10:06:00Reason for exam:->rule out pneumoniaShould this be [...] Benites Verified Date/Time: 03/12/2017 10:06:57 Reading Location: [facility] Radiology Reading Room [id number] 09:08:00 Test Item Value Reference Range Comments HOMOCYSTEINE (BEAKER) (test czyu=147) 11.8 umol/L 5.1-15.4 FastingCREATINE KINASE (CK), TOTAL AND [id number] 08:55:00 Test Item Value Reference Range Comments CREATINE KINASE TOTAL (BEAKER) (test oypm=751) 59 U/L 29-200 CREATINE KINASE-MB (BEAKER) (test slrq=632) 1.0 ng/mL 0.0-6.6 CREATINE KINASE-MB INDEX (BEAKER) (test tlsm=400) 1.7 % CK-MB Reference Range:<6.7 Normal6.7-10.0 Borderline>10.0 AbnormalFastingFastingTROPONIN [id number] 08:55:00 Test Item Value Reference Range Comments TROPONIN I (BEAKER) (test zxbn=652) < ng/mL 0.00-0.03 Troponin I (TnI) levels [...] acidosis, acute neurological disease, and persistent tachyarrhythmia.FastingLIPID [id number] 08:48:00 Test Item Value Reference Range Comments TRIGLYCERIDES (BEAKER) (test wpug=587) 151 mg/dL CHOLESTEROL (BEAKER) (test gmim=701) 147 mg/dL HDL CHOLESTEROL (BEAKER) (test wddu=721) 29 mg/dL LDL CHOLESTEROL CALCULATED (BEAKER) (test 88 mg/dL wjst=786) Triglyceride Reference Range: Low Risk <150 Borderline 150- 199 High Risk 200-499 Very High Risk >=500Cholesterol Reference Range: Low Risk <200 Borderline 200-239 High Risk > 240HDL Cholesterol Reference Range: Low Risk >=60 High Risk <40LDL Cholesterol Reference Range: Optimal <100 Near Optimal 100-129 Borderline 130-159 High 160-189 Very High >=190 FastingBASIC METABOLIC [id number] 08:48:00 Test Item Value Reference Range Comments SODIUM (BEAKER) (test 136 meq/L 136-145 wsai=845) POTASSIUM (BEAKER) (test 4.4 meq/L 3.5-5.1 tabv=748) CHLORIDE (BEAKER) (test 104 meq/L 98-107 amap=277) CO2 (BEAKER) (test 25 meq/L 22-29 jdyd=961) BLOOD UREA NITROGEN 15 mg/dL 7-21 (BEAKER) (test jcyn=163) CREATININE (BEAKER) (test 0.87 mg/dL 0.57-1.25 vozv=758) GLUCOSE RANDOM (BEAKER) 102 mg/dL 70-105 (test tmbs=039) CALCIUM (BEAKER) (test 8.9 mg/dL 8.4-10.2 fvny=068) EGFR (BEAKER) (test 87 mL/min/1.73 sq m ESTIMATED GFR IS NOT oayk=4019) ACCURATE CREATININE CLEARANCE IN PREDICTING GLOMERULAR FILTRATION RATE. ESTIMATED GFR IS NOT APPLICABLE FOR DIALYSIS PATIENTS. FastingCBC W/PLT COUNT & AUTO [id number] 08:24:00 Test Item Value Reference Range Comments WHITE BLOOD CELL COUNT (BEAKER) (test ckbj=279) 5.7 K/ L 3.5-10.5 RED BLOOD CELL COUNT (BEAKER) (test hmyp=271) 4.23 M/ L 4.63-6.08 HEMOGLOBIN (BEAKER) (test hwqh=994) 12.3 GM/DL 13.7-17.5 HEMATOCRIT (BEAKER) (test ptqj=675) 37.9 % 40.1-51.0 MEAN CORPUSCULAR VOLUME (BEAKER) (test rzqk=281) 89.6 fL 79.0-92.2 MEAN CORPUSCULAR HEMOGLOBIN (BEAKER) (test 29.1 pg 25.7-32.2 ozzh=294) MEAN CORPUSCULAR HEMOGLOBIN CONC (BEAKER) (test 32.5 GM/DL 32.3-36.5 fqlt=452) RED CELL DISTRIBUTION WIDTH (BEAKER) (test 15.9 % 11.6-14.4 dptm=967) PLATELET COUNT (BEAKER) (test wmvt=442) 156 K/CU MM 150-450 MEAN PLATELET VOLUME (BEAKER) (test wlzx=013) 10.2 fL 9.4-12.4 NUCLEATED RED BLOOD CELLS (BEAKER) (test 0 /100 WBC 0-0 zoas=883) NEUTROPHILS RELATIVE PERCENT (BEAKER) (test 47 % ugxw=736) LYMPHOCYTES RELATIVE PERCENT (BEAKER) (test 37 % cjcc=065) MONOCYTES RELATIVE PERCENT (BEAKER) (test 12 % aegi=169) EOSINOPHILS RELATIVE PERCENT (BEAKER) (test 3 % ljlb=344) BASOPHILS RELATIVE PERCENT (BEAKER) (test 2 % owss=041) NEUTROPHILS ABSOLUTE COUNT (BEAKER) (test 2.66 K/ L 1.78-5.38 utrq=351) LYMPHOCYTES ABSOLUTE COUNT (BEAKER) (test 2.09 K/ L 1.32-3.57 afpc=805) MONOCYTES ABSOLUTE COUNT (BEAKER) (test 0.70 K/ L 0.30-0.82 clpz=533) EOSINOPHILS ABSOLUTE COUNT (BEAKER) (test 0.15 K/ L 0.04-0.54 eomp=839) BASOPHILS ABSOLUTE COUNT (BEAKER) (test 0.09 K/ L 0.01-0.08 wrug=571) IMMATURE GRANULOCYTES-RELATIVE PERCENT (BEAKER) 1 % 0-1 (test plrm=2222) TSH/FREE T4 IF [id number] 03:38:00 Test Item Value Reference Range Comments THYROID STIMULATING HORMONE (BEAKER) (test 2.01 uIU/mL 0.35-4.94 sult=528) VITAMIN B12 AND [id number] 03:38:00 Test Item Value Reference Range Comments VITAMIN B12 (BEAKER) (test lzna=237) 1008 pg/mL 213-816 FOLATE (BEAKER) (test kexn=744) 8.4 ng/mL >=7.0 CREATINE KINASE (CK), TOTAL AND [id number] 01:03:00 Test Item Value Reference Range Comments CREATINE KINASE TOTAL (BEAKER) (test rtju=329) 66 U/L 29-200 CREATINE KINASE-MB (BEAKER) (test mdir=042) 1.4 ng/mL 0.0-6.6 CREATINE KINASE-MB INDEX (BEAKER) (test ziym=143) 2.1 % CK-MB Reference Range:<6.7 Normal6.7-10.0 Borderline>10.0 AbnormalTROPONIN [id number] 01:03:00 Test Item Value Reference Range Comments TROPONIN I (BEAKER) (test fxbo=271) 0.02 ng/mL 0.00-0.03 Troponin I (TnI) levels [...] acute neurological disease, and persistent tachyarrhythmia.BASIC METABOLIC [id number] 00:56:00 Test Item Value Reference Range Comments SODIUM (BEAKER) (test 136 meq/L 136-145 sshl=252) POTASSIUM (BEAKER) (test 3.9 meq/L 3.5-5.1 andu=420) CHLORIDE (BEAKER) (test 104 meq/L 98-107 lmgz=155) CO2 (BEAKER) (test 24 meq/L 22-29 sklj=057) BLOOD UREA NITROGEN 14 mg/dL 7-21 (BEAKER) (test fjgy=898) CREATININE (BEAKER) (test 0.87 mg/dL 0.57-1.25 dxdr=884) GLUCOSE RANDOM (BEAKER) 104 mg/dL 70-105 (test jetx=618) CALCIUM (BEAKER) (test 9.2 mg/dL 8.4-10.2 bquj=091) EGFR (BEAKER) (test 87 mL/min/1.73 sq m ESTIMATED GFR IS NOT kmfx=7794) ACCURATE CREATININE CLEARANCE IN PREDICTING GLOMERULAR FILTRATION RATE. ESTIMATED GFR IS NOT APPLICABLE FOR DIALYSIS PATIENTS. PROTHROMBIN [id number] 00:27:00 Test Item Value Reference Range Comments PROTIME (BEAKER) (test fyau=362) 17.2 seconds 11.7-14.7 INR (BEAKER) (test uiol=675) 1.4 <=5.9 RECOMMENDED COUMADIN/WARFARIN INR THERAPY RANGESSTANDARD DOSE: 2.0 - 3.0 Includes: PROPHYLAXIS forvenous thrombosis, systemic embolization; TREATMENT for venous thrombosis and/or pulmonary embolus.HIGH RISK: Target INR is 2.5-3.5 for patients with mechanical heart valves.CBC W/PLT COUNT & AUTO [id number] 00:01:00 Test Item Value Reference Range Comments WHITE BLOOD CELL COUNT (BEAKER) (test hwwx=509) 8.2 K/ L 3.5-10.5 RED BLOOD CELL COUNT (BEAKER) (test uasj=682) 4.57 M/ L 4.63-6.08 HEMOGLOBIN (BEAKER) (test zpod=679) 13.2 GM/DL 13.7-17.5 HEMATOCRIT (BEAKER) (test kbch=718) 40.5 % 40.1-51.0 MEAN CORPUSCULAR VOLUME (BEAKER) (test dcch=121) 88.6 fL 79.0-92.2 MEAN CORPUSCULAR HEMOGLOBIN (BEAKER) (test 28.9 pg 25.7-32.2 qgne=576) MEAN CORPUSCULAR HEMOGLOBIN CONC (BEAKER) (test 32.6 GM/DL 32.3-36.5 lffy=304) RED CELL DISTRIBUTION WIDTH (BEAKER) (test 15.9 % 11.6-14.4 cgwm=672) PLATELET COUNT (BEAKER) (test zqhy=140) 198 K/CU MM 150-450 MEAN PLATELET VOLUME (BEAKER) (test fgdv=409) 11.2 fL 9.4-12.4 NUCLEATED RED BLOOD CELLS (BEAKER) (test 0 /100 WBC 0-0 kawi=542) NEUTROPHILS RELATIVE PERCENT (BEAKER) (test 57 % xysa=754) LYMPHOCYTES RELATIVE PERCENT (BEAKER) (test 28 % yvwd=537) MONOCYTES RELATIVE PERCENT (BEAKER) (test 10 % kpmt=521) EOSINOPHILS RELATIVE PERCENT (BEAKER) (test 3 % bvwt=719) BASOPHILS RELATIVE PERCENT (BEAKER) (test 1 % xcjd=918) NEUTROPHILS ABSOLUTE COUNT (BEAKER) (test 4.66 K/ L 1.78-5.38 mezh=848) LYMPHOCYTES ABSOLUTE COUNT (BEAKER) (test 2.29 K/ L 1.32-3.57 bkuw=372) MONOCYTES ABSOLUTE COUNT (BEAKER) (test 0.81 K/ L 0.30-0.82 eswh=111) EOSINOPHILS ABSOLUTE COUNT (BEAKER) (test 0.25 K/ L 0.04-0.54 pngf=952) BASOPHILS ABSOLUTE COUNT (BEAKER) (test 0.10 K/ L 0.01-0.08 wbwn=556) IMMATURE GRANULOCYTES-RELATIVE PERCENT (BEAKER) 1 % 0-1 (test mves=[id number])
--- NOTE | 2017-08-11 16:01 | RAD REPORT ---
EXAM DESCRIPTION: CT - Head Brain Wo Cont - 08/11/2017 3:55 pm CLINICAL HISTORY: Altered mental status, lethargy COMPARISON: CT head July 09 TECHNIQUE: Axial 5 mm thick images of the head were obtained without IV contrast. All CT scans are performed using dose optimization technique as appropriate and may include automated exposure control or mA/KV adjustment according to patient size. FINDINGS: No intracranial hemorrhage, mass, edema or shift of mid-line structures. No acute cortical infarction. Atrophy and chronic ischemic change match the short interval July 09 study. No abnormal ex tra-axial fluid collections. Ventricles are in proportion to volume loss. Mastoid air cells and visualized portions of the paranasal sinuses are clear. No acute bony findings. IMPRESSION: Negative non-contrast CT head examination for acute finding. No significant change from July 09
[2017-08-11] MEDS ORDERED: NA CHLORIDE 0.9% 500 ML ONE (16:19)
--- NOTE | 2017-08-11 16:23 | RAD REPORT ---
EXAM DESCRIPTION: [facility] Single View08/11/2017 4:14 pm CLINICAL HISTORY: Chest pain COMPARISON: 2010 FINDINGS: The lungs appear clear of acute infiltrate. The heart is normal size.. Pacemaker leads ar e in place. IMPRESSION: No acute abnormalities displayed
[2017-08-11 16:50] LABS: Absolute Lymphocytes (CBC) 1.7 K/uL (0.7-4.9); Absolute Monocytes 0.8 K/uL (0.1-1.3); Absolute Neutrophil 4.3 K/uL (1.8-8.0); Basophils % 1.3 % (0-1.3); Eosinophils % 2.1 % (0-4.4); Hematocrit 37.1 % (39.6-49.0); Lymphocytes % 23.6 % (15.3-44.8); MCH 29.6 pg (27.0-35.0); MCV 88.2 fL (80-100); MPV 9.1 fL (7.6-11.3); Monocytes % 11.6 % (3.3-12.3)
[2017-08-11 16:54] LABS: Protime INR 1.05
[2017-08-11 17:01] LABS: Urine Blood NEGATIVE (NEG); Urine Glucose NEGATIVE (NEG); Urine Protein NEGATIVE (NEG); Urine pH 6.5 (5.0-7.0)
[2017-08-11 17:07] LABS: Potassium 4.3 mEq/L (3.6-5.0)
[2017-08-11 17:14] LABS: Albumin 3.8 g/dL (3.2-5.5); Bilirubin Direct 0.1 mg/dL (0-0.2); Bilirubin Total 0.4 mg/dL (0.3-1.2); Magnesium 1.8 mg/dL (1.8-2.5)
[2017-08-11 17:18] LABS: CKMB Creatine Kinase MB 1.3 ng/ml (0.3-4.0)
[2017-08-11] MEDS ORDERED: ASPIRIN 81 MG CHEWABLE TABLET ONE (18:24)
--- NOTE | 2017-08-11 18:25 | EDPHYS ---
Physician Documentation [facility] Name: Maurice Morfin Age: 67 yrs Sex: Male : 1950 Arrival Date: 08/11/2017 Time: 15:03 Bed 13 Private MD: Yung Thomas ED Physician Hector Torrez HPI: 08/11 15:47 This 67 yrs old Male presents to ER via Ambulatory with complaints of General cp Weakness, Nausea. 15:47 The patient presents with confusion, decreased responsiveness, general weakness. cp 15:47 Onset: The symptoms/episode began/occurred 1 hour(s) ago. Possible causes: CVA or TIA. cp Associated signs and symptoms: Pertinent positives: chest pain, Pertinent negatives: abdominal pain, blurred vision, combativeness, diaphoresis, headache. Current symptoms: In the emergency department the patient's symptoms have improved, markedly, is more alert. Patient's baseline: Neuro: alert but confused, Motor: no deficits, Ambulation: walks without assistance, Speech: normal, The patient has a previous history of CVA, TIA. Patient's son reports he was called while out shopping by patient's granddaughter about 1 hour CULINARY ARTIST that patient was less responsive and difficult to arouse. Historical: - Allergies: 15:22 NKDA; aj - Home Meds: 15:22 albuterol sulfate 2.5 mg /3 mL (0.083 %) Inhl nebu for Chronic Obstructive Pulmonary aj Disease [Active]; aspirin 81 mg Oral chew 1 tab once daily [Active]; clopidogrel 75 mg Oral tab 1 tab once daily [Active]; ipratropium bromide (bulk) miscellaneous powd daily [Active]; metoprolol tartrate 25 mg Oral tab 1 tab 2 times per day for Hypertension [Active]; omeprazole 20 mg Oral cpDR 1 cap once daily for Gastroesophageal reflux [Active]; Protonix 40 mg Oral TbEC 1 tab once daily [Active]; Symbicort 160-4.5 mcg/actuation inhalation HFAA 2 puffs 2 times per day for Bronchospasm Prevention with COPD [Active]; tamsulosin 0.4 mg Oral cp24 1 cap once daily [Active]; - PMHx: 15:22 Cholelithiasis; COPD; CVA; Dementia; enlarged prostate; Hernia; Hypertension; [place]; aj - PSHx: 15:22 PACEMAKER; Heart stents; aj - Immunization history:: Adult Immunizations up to date. - Social history:: Smoking status: Patient uses tobacco products, smokes one pack cigarettes per day. - Ebola Screening: : Patient negative for fever greater than or equal to 101.5 degrees Fahrenheit, and additional compatible Ebola Virus Disease symptoms Patient denies exposure to infectious person Patient denies travel to an Ebola-affected area in the 21 days before illness onset No symptoms or risks identified at this time. ROS: 15:55 Constitutional: Negative for body aches, chills, fever, poor PO intake. cp 15:55 Eyes: Negative for injury, pain, redness, and discharge. cp 15:55 ENT: Negative for drainage from ear(s), ear pain, sore throat, difficulty swallowing, difficulty handling secretions. 15:55 Neck: Negative for pain with movement, pain at rest, stiffness, tenderness, bony tenderness. 15:55 Cardiovascular: Positive for chest pain, Negative for edema, palpitations. 15:55 Respiratory: Negative for cough, shortness of breath, wheezing. 15:55 Abdomen/GI: Negative for abdominal pain, vomiting, diarrhea, constipation, black/tarry cp stool, rectal bleeding. 15:55 Back: Negative for pain at rest, pain with movement, radiated pain. 15:55 : Negative for urinary symptoms, difficulty urinating. 15:55 MS/extremity: Negative for injury or acute deformity, decreased range of motion, paresthesias, swelling, tenderness. 15:55 Skin: Negative for cellulitis, rash. 15:55 Neuro: Positive for altered mental status, general weakness, Negative for gait cp disturbance, headache, seizure activity. 15:55 All other systems are negative. Exam: 15:33 ECG was reviewed by the Attending Physician. cp 15:58 Head/Face: Normocephalic, atraumatic. cp 15:58 Constitutional: The patient appears in no acute distress, alert, awake, non-diaphoretic, non-toxic, well developed, well nourished. 15:58 Eyes: Periorbital structures: appear normal, Pupils: equal, round, and reactive to light and accomodation, Extraocular movements: intact throughout, Conjunctiva: normal, no exudate, no injection, Sclera: no appreciated abnormality, Lids and lashes: appear normal, bilaterally. 15:58 ENT: External ear(s): are unremarkable, Ear canal(s): are normal, clear, TM's: bulging, is not appreciated, bilaterally, dullness, bilaterally, erythema, is not appreciated, bilaterally, Nose: is normal, Mouth: Lips: moist, Oral mucosa: pink and intact, moist, Posterior pharynx: is normal, airway is patent, no erythema, no exudate. 15:58 Neck: ROM/movement: is normal, is supple, without pain, no range of motions limitations, no meningismus, no nuchal rigidity. 15:58 Chest/axilla: Inspection: normal, Palpation: is normal, no crepitus, no tenderness. 15:58 Cardiovascular: Rate: normal, Rhythm: regular, Pulses: Pulses are 2+ in right radial artery and left radial artery. Heart sounds: murmur, not appreciated, Edema: is not appreciated, JVD: is not appreciated. 15:58 Respiratory: the patient does not display signs of respiratory distress, Respirations: normal, no use of accessory muscles, no retractions, no splinting, no tachypnea, labored breathing, is not present, Breath sounds: are clear throughout, no decreased breath sounds, no stridor, no wheezing. 15:58 Abdomen/GI: Inspection: abdomen appears normal, Bowel sounds: active, all quadrants, Palpation: abdomen is soft and non-tender, in all quadrants, rebound tenderness, is not appreciated, voluntary guarding, is not appreciated, involuntary guarding, is not appreciated. 15:58 Back: pain, is absent, ROM is normal. 15:58 Musculoskeletal/extremity: Exam is negative for bony tenderness, calf tenderness, decreased range of motion, deformity, edema, injury. 15:58 Skin: cellulitis, is not appreciated, no rash present. 15:58 Neuro: Orientation: to person, place, situation, Mentation: able to follow commands, slow to respond, Memory: recent memory can't recall recent events prior to coming to emergency department, Cerebellar function: Romberg testing is negative, normal finger to nose testing, heel to del valle testing is normal, Motor: moves all fours, general weakness with no focal deficits, Sensation: no obvious gross deficits. Vital Signs: 15:22 BP 146 / 76; Pulse 82; Resp 19; Temp 97.4; Pulse Ox 98% on R/A; Weight 70.31 kg; Height aj 5 ft. 9 in. (175.26 cm); 16:00 BP 143 / 77; Pulse 60; Resp 17 S; Pulse Ox 99% on R/A; sg 16:05 BP 142 / 70 Standing; Pulse 52; Resp 19 S; Pulse Ox 99% on R/A; sg 17:19 BP 130 / 73; Pulse 59; Resp 18; Pulse Ox 100% on R/A; sg 18:30 BP 132 / 77; Pulse 60; Resp 17; Pulse Ox 100% on R/A; sg 19:30 BP 121 / 65; Pulse 60; Resp 16 S; Pulse Ox 99% on R/A; bs1 20:19 BP 139 / 65; Pulse 60; Resp 16; Temp 98(O); Pulse Ox 99% on R/A; bs1 15:22 Body Mass Index 22.89 (70.31 kg, 175.26 cm) aj NIH Stroke Scale Scores: 15:58 NIHSS Score: 0 cp Renaldo Coma Score: 15:58 Eye Response: spontaneous(4). Verbal Response: oriented(5). Motor Response: obeys cp commands(6). Total: 15. MDM: 15:29 Patient medically screened. cp 16:00 Differential Diagnosis: CVA, electrolyte abnormality, alcohol intoxication, cp intracranial bleed, TIA, volume depletion. 17:40 Data reviewed: vital signs, nurses notes, lab test result(s), EKG, radiologic studies, cp CT scan, plain films. 17:40 Test interpretation: by ED physician or midlevel provider: ECG, plain radiologic cp studies. 17:45 Physician consultation: Татьяна Azevedo MD was called at 17:45, will be down shortly to ER cp to discuss patient. 18:20 Physician consultation: Татьяна Azevedo MD was contacted at 18:20, regarding admission, to the telemetry unit. patient's condition, and will see patient in ED, shortly. 18:22 Counseling: I had a detailed discussion with the patient and/or guardian regarding: the cp historical points, exam findings, and any diagnostic results supporting the discharge/admit diagnosis, lab results, radiology results, the need for further work-up and treatment in the hospital, smoking cessation. 08/11 15:45 Order name: Basic Metabolic Panel; Complete Time: 17:38 08/11 17:38 Interpretation: Normal except: GFR 83. cp / 15:45 Order name: BNP; Complete Time: 17:38 cp /06 15:45 Order name: CBC with Diff; Complete Time: 16:59 cp /06 17:38 Interpretation: Normal except: RBC 4.20; HGB 12.4; HCT 37.1; RDW 16.9. cp / 15:45 Order name: Ckmb; Complete Time: 17:38 cp / 15:45 Order name: CPK; Complete Time: 17:38 cp / 15:45 Order name: LFT's; Complete Time: 17:38 cp / 15:45 Order name: Magnesium; Complete Time: 17:38 cp / 15:45 Order name: PT-INR; Complete Time: 16:59 cp 08/11 15:45 Order name: Ptt, Activated; Complete Time: 16:59 cp / 15:45 Order name: Troponin (emerg Dept Use Only); Complete Time: 17:38 cp 08/11 17:39 Interpretation: TROPED < 0.03; Reviewed. 08/11 15:45 Order name: XRAY Chest (1 view); Complete Time: 16:25 cp 08/11 15:45 Order name: CT Head Brain wo Cont; Complete Time: 16:25 cp 08/11 16:25 Interpretation: Report reviewed. 08/11 16:53 Order name: Urine Dipstick--Ancillary (enter results) ss 08/11 16:53 Order name: Urine Dipstick-Ancillary; Complete Time: 17:38 EDMS 08/11 15:45 Order name: EKG; Complete Time: 15:46 cp 08/11 15:45 Order name: Cardiac monitoring; Complete Time: 15:53 cp 08/11 15:45 Order name: EKG - Nurse/Tech; Complete Time: 15:53 cp 08/11 15:45 Order name: IV Saline Lock; Complete Time: 16:30 cp 08/11 15:45 Order name: Labs collected and sent; Complete Time: 16:30 cp 08/11 15:45 Order name: O2 Per Protocol; Complete Time: 15:53 cp 08/11 15:45 Order name: O2 Sat Monitoring; Complete Time: 15:53 cp 08/11 15:45 Order name: Urine Dipstick-Ancillary (obtain specimen); Complete Time: 16:51 cp 08/11 16:27 Order name: Orthostatics; Complete Time: 16:33 cp 08/11 19:58 Order name: US EDMS EC:33 Rate is 60 beats/min. Rhythm is regular, Paced. QRS interval is normal. QT interval is cp normal. T waves are Inverted in lead aVL. No ST changes noted. Interpreted by me. Reviewed by me. Administered Medications: 16:39 Drug: NS 0.9% 500 ml Route: IV; Rate: bolus; Site: left forearm; sg 20:30 Follow up: IV Status: Completed infusion bs1 18:00 Drug: Aspirin Chewable Tablet 324 mg Route: PO; sg 20:29 Follow up: Response: No adverse reaction bs1 18:21 Not Given (Patient Refused; pt informed to notify staff if pain medication needed sg later): morphine 2 mg IVP once Disposition: 08/11/17 18:25 Hospitalization ordered by Татьяна Azevedo for Observation. Preliminary diagnosis are Transient cerebral ischemic attack, unspecified, Chest pain, unspecified. - Bed requested for Telemetry/MedSurg (observation). - Status is Observation. bs1 - Condition is Stable. - Problem is new. - Symptoms have improved. UTI on Admission? No NIH Stroke Scale - NIH Stroke Score Date: 08/11/2017 Time: 15:58 Total Score = 0 1a. Level of Consciousness (LOC) - 0(Alert) 1b. Level of Consciousness (LOC) (Year \T\ Age) - 0(Both) 1c. LOC Commands (Open \T\ Closes Eyes/Production Department Supervisor) - 0(Both) 2. Best Gaze (Lateral Gaze Paresis) - 0(Normal) 3. Visual Field Loss - 0(No visual loss) 4. Facial Palsy - 0(Normal) 5a. Left Arm: Motor (10-second hold) - 0(No drift) 5b. Right Arm: Motor (10-second hold) - 0(No drift) 6a. Left Leg: Motor (5-second hold - always test supine) - 0(No drift) 6b. Right Leg: Motor (5-second hold - always test supine) - 0(No drift) 7. Limb Ataxia (finger/nose \T\ heel/del valle - test with eyes open) - 0(Absent) 8. Sensory Loss (pinprick arms/legs/face) - 0(Normal) 9. Best Language: Aphasia (description/naming/reading) - 0(No aphasia) 10. Dysarthria (speech clarity - read or repeat words) - 0(Normal) 11. Extinction and Inattention (visual/tactile/auditory/spatial/personal) - 0(No abnormality) Initials: cp Addendum: 08/13/2017 21:34 Co-signature as Attending Physician, Hector Torrez MD. rn Signatures: Dispatcher [employer] EDMS Sally Richard RN Sim Rivera RN Basilia Crow RN Hector Tyler MD MD rn Page, Corey, PA PA cp Salazar, Brittany RN RN bs1 Corrections: (The following items were deleted from the chart) 08/11 19:00 18:25 Hospitalization Ordered by Татьяна Azevedo MD for Observation. Preliminary dw diagnosis is Transient cerebral ischemic attack, unspecified; Chest pain, unspecified. Bed requested for Telemetry/MedSurg (observation). Status is Observation. Condition is Stable. Problem is new. Symptoms have improved. UTI on Admission? No. cp 20:38 19:00 08/11/2017 18:25 Hospitalization Ordered by Татьяна Azevedo MD for bs1 Observation. Preliminary diagnosis is Transient cerebral ischemic attack, unspecified; Chest pain, unspecified. Bed requested for Telemetry/MedSurg (observation). Status is Observation. Condition is Stable. Problem is new. Symptoms have improved. UTI on Admission? No. dw 08/12 19:53 08/11 17:40 Admission orders: after a detailed discussion of the patient's cp condition and case, the admit orders are written by me. cp
--- NOTE | 2017-08-11 18:25 | ER ---
Nurse's Notes [facility] Name: Maurice Morfin Age: 67 yrs Sex: Male : 1950 Arrival Date: 08/11/2017 Time: 15:03 Bed 13 Private MD: Yung Thomas Diagnosis: Transient cerebral ischemic attack, unspecified;Chest pain, unspecified Presentation: 08/11 15:20 Presenting complaint: Patient states: Reports episode where patient became difficult to aj arouse. Patient reports chest pain during car ride to ER. Ambulated to triage with steady gait. Reports that he feels sleepy and tired. Transition of care: patient was not received from another setting of care. Onset of symptoms was August 11, 2017. Care prior to arrival: None. 15:20 Method Of Arrival: Ambulatory aj 15:20 Acuity: WAYLON 3 aj 15:40 Risk Assessment: Do you want to hurt yourself or someone else? Patient reports no sg desire to harm self or others. Initial Sepsis Screen: Does the patient meet any 2 criteria? No. Patient's initial sepsis screen is negative. Does the patient have a suspected source of infection? No. Patient's initial sepsis screen is negative. Triage Assessment: 15:22 General: Appears in no apparent distress. comfortable, Behavior is calm, cooperative, aj appropriate for age. Pain: Complains of pain in chest. Neuro: Level of Consciousness is awake, alert, obeys commands, Oriented to person, place, time, situation, Appropriate for age. Respiratory: Airway is patent Respiratory effort is even, unlabored, Respiratory pattern is regular, symmetrical. GI: Reports nausea. Derm: Skin is intact, is healthy with good turgor, Skin is pink, warm \T\ dry. normal. Historical: - Allergies: 15:22 NKDA; aj - Home Meds: 15:22 albuterol sulfate 2.5 mg /3 mL (0.083 %) Inhl nebu for Chronic Obstructive Pulmonary aj Disease [Active]; aspirin 81 mg Oral chew 1 tab once daily [Active]; clopidogrel 75 mg Oral tab 1 tab once daily [Active]; ipratropium bromide (bulk) miscellaneous powd daily [Active]; metoprolol tartrate 25 mg Oral tab 1 tab 2 times per day for Hypertension [Active]; omeprazole 20 mg Oral cpDR 1 cap once daily for Gastroesophageal reflux [Active]; Protonix 40 mg Oral TbEC 1 tab once daily [Active]; Symbicort 160-4.5 mcg/actuation inhalation HFAA 2 puffs 2 times per day for Bronchospasm Prevention with COPD [Active]; tamsulosin 0.4 mg Oral cp24 1 cap once daily [Active]; - PMHx: 15:22 Cholelithiasis; COPD; CVA; Dementia; enlarged prostate; Hernia; Hypertension; [place]; aj - PSHx: 15:22 PACEMAKER; Heart stents; aj - Immunization history:: Adult Immunizations up to date. - Social history:: Smoking status: Patient uses tobacco products, smokes one pack cigarettes per day. - Ebola Screening: : Patient negative for fever greater than or equal to 101.5 degrees Fahrenheit, and additional compatible Ebola Virus Disease symptoms Patient denies exposure to infectious person Patient denies travel to an Ebola-affected area in the 21 days before illness onset No symptoms or risks identified at this time. Screenin:40 Abuse screen: Denies threats or abuse. Denies injuries from another. Nutritional sg screening: No deficits noted. Tuberculosis screening: No symptoms or risk factors identified. Never had TB. Fall Risk None identified. Assessment: 15:40 General: Appears in no apparent distress. well groomed, well developed, well nourished, sg Behavior is calm, cooperative, appropriate for age. Pain: Denies pain. Neuro: Level of Consciousness is awake, alert, obeys commands, Oriented to person, place, time, situation, Air Hole Driller are equal bilaterally Moves all extremities. Full function Gait is steady, Speech is normal, Facial symmetry appears normal. Cardiovascular: Heart tones S1 S2 present Capillary refill is brisk in bilateral fingers Patient's skin is warm and dry. Respiratory: Airway is patent Respiratory effort is even, unlabored, Respiratory pattern is regular, symmetrical. GI: Abdomen is flat, non-distended, Bowel sounds present X 4 quads. Reports nausea. : No signs and/or symptoms were reported regarding the genitourinary system. EENT: No signs and/or symptoms were reported regarding the EENT system. Derm: Skin is intact, is thin, Skin is dry, Skin is pale, Skin temperature is warm. Musculoskeletal: No signs and/or symptoms reported regarding the musculoskeletal system. 17:12 Reassessment: Patient appears in no apparent distress at this time. Patient and/or sg family updated on plan of care and expected duration. Pain level reassessed. Patient is alert, oriented x 3, equal unlabored respirations, skin warm/dry/pink. 19:10 Reassessment: Report received from JAVAN Montemayor. General: Appears in no apparent bs1 distress. well groomed, well developed, Behavior is calm, cooperative, appropriate for age. Pain: Denies pain. Neuro: Level of Consciousness is awake, alert, obeys commands, Oriented to person, place, time, situation, Appropriate for age Air Hole Driller are equal bilaterally Moves all extremities. Full function Gait is steady, Speech is normal, Facial symmetry appears normal. Neuro: Reports weakness. Cardiovascular: Denies chest pain, shortness of breath, Heart tones S1 S2 present Capillary refill < 3 seconds Patient's skin is warm and dry. Respiratory: Airway is patent Trachea midline Respiratory effort is even, unlabored, Respiratory pattern is regular, symmetrical, Breath sounds are clear bilaterally. GI: Abdomen is flat, non-distended, Bowel sounds present X 4 quads. Reports nausea. : No signs and/or symptoms were reported regarding the genitourinary system. EENT: No signs and/or symptoms were reported regarding the EENT system. Derm: Skin is intact, Skin is pale. Musculoskeletal: No signs and/or symptoms reported regarding the musculoskeletal system. 20:25 Reassessment: Patient appears in no apparent distress at this time. No changes from bs1 previously documented assessment. Patient and/or family updated on plan of care and expected duration. Pain level reassessed. Patient is alert, oriented x 3, equal unlabored respirations, skin warm/dry/pink. Vital Signs: 15:22 BP 146 / 76; Pulse 82; Resp 19; Temp 97.4; Pulse Ox 98% on R/A; Weight 70.31 kg; Height aj 5 ft. 9 in. (175.26 cm); 16:00 BP 143 / 77; Pulse 60; Resp 17 S; Pulse Ox 99% on R/A; sg 16:05 BP 142 / 70 Standing; Pulse 52; Resp 19 S; Pulse Ox 99% on R/A; sg 17:19 BP 130 / 73; Pulse 59; Resp 18; Pulse Ox 100% on R/A; sg 18:30 BP 132 / 77; Pulse 60; Resp 17; Pulse Ox 100% on R/A; sg 19:30 BP 121 / 65; Pulse 60; Resp 16 S; Pulse Ox 99% on R/A; bs1 20:19 BP 139 / 65; Pulse 60; Resp 16; Temp 98(O); Pulse Ox 99% on R/A; bs1 15:22 Body Mass Index 22.89 (70.31 kg, 175.26 cm) aj Renaldo Coma Score: 15:58 Eye Response: spontaneous(4). Verbal Response: oriented(5). Motor Response: obeys cp commands(6). Total: 15. NIH Stroke Scale Scores: 15:58 NIHSS Score: 0 cp ED Course: 15:03 Patient arrived in ED. sb2 15:04 Yung Thomas MD is Private Physician. sb2 15:21 Triage completed. aj 15:22 Arm band placed on right wrist. Patient placed in an exam room. aj 15:29 Caio Wilde PA is PHCP. cp 15:29 Hector Torrez MD is Attending Physician. cp 15:40 Patient has correct armband on for positive identification. Bed in low position. Call sg light in reach. Side rails up X2. cement worker on. Pulse ox on. NIBP on. Warm blanket given. Head of bed elevated. 15:40 No provider procedures requiring assistance completed. sg 15:52 Sim Azul, RN is Primary Nurse. sg 15:54 CT completed. Patient tolerated procedure well. Patient moved to CT via wheelchair. sw Patient moved back from CT. 15:55 CT Head Brain wo Cont In Process Unspecified. EDMS 16:13 X-ray completed. Portable x-ray completed in exam room. Patient tolerated procedure kc2 well. 16:13 XRAY Chest (1 view) In Process Unspecified. EDMS 16:31 Inserted saline lock: 22 gauge in left wrist, using aseptic technique. Blood collected. ss 18:24 Татьяна Azevedo MD is Hospitalizing Provider. cp 20:29 Patient admitted, IV remains in place. intact. bs1 Administered Medications: 16:39 Drug: NS 0.9% 500 ml Route: IV; Rate: bolus; Site: left forearm; sg 20:30 Follow up: IV Status: Completed infusion bs1 18:00 Drug: Aspirin Chewable Tablet 324 mg Route: PO; sg 20:29 Follow up: Response: No adverse reaction bs1 18:21 Not Given (Patient Refused; pt informed to notify staff if pain medication needed sg later): morphine 2 mg IVP once Outcome: 18:25 Decision to Hospitalize by Provider. cp 20:28 Admitted to Tele accompanied by misael, via wheelchair, room 427, with chart, Report bs1 called to JAVAN Ivan 20:28 Condition: stable 20:28 Instructed on the need for admit, Demonstrated understanding of instructions. 20:38 Patient left the ED. bs1 NIH Stroke Scale - NIH Stroke Score Date: 08/11/2017 Time: 15:58 Total Score = 0 1a. Level of Consciousness (LOC) - 0(Alert) 1b. Level of Consciousness (LOC) (Year \T\ Age) - 0(Both) 1c. LOC Commands (Open \T\ Closes Eyes/Security Test Engineer) - 0(Both) 2. Best Gaze (Lateral Gaze Paresis) - 0(Normal) 3. Visual Field Loss - 0(No visual loss) 4. Facial Palsy - 0(Normal) 5a. Left Arm: Motor (10-second hold) - 0(No drift) 5b. Right Arm: Motor (10-second hold) - 0(No drift) 6a. Left Leg: Motor (5-second hold - always test supine) - 0(No drift) 6b. Right Leg: Motor (5-second hold - always test supine) - 0(No drift) 7. Limb Ataxia (finger/nose \T\ heel/del valle - test with eyes open) - 0(Absent) 8. Sensory Loss (pinprick arms/legs/face) - 0(Normal) 9. Best Language: Aphasia (description/naming/reading) - 0(No aphasia) 10. Dysarthria (speech clarity - read or repeat words) - 0(Normal) 11. Extinction and Inattention (visual/tactile/auditory/spatial/personal) - 0(No abnormality) Initials: cp Signatures: Dispatcher [employer] EDSim Silverio RN RN sg Myers, Amanda, RN RN aj Smirch, Shelby, RN RN ss Warren, Shannon sw Page, Corey, VINOD PA cp Geetha Ibarra Brittany RN RN bs1 Katalina Cuellar
[2017-08-11] MEDS ORDERED: ONDANSETRON 4 MG/2 ML VIAL IV PRN (18:50)
[2017-08-11] MEDS ORDERED: ACETAMINOPHEN 500 MG TAB PO PRN (18:50)
--- NOTE | 2017-08-11 19:58 | RAD REPORT ---
EXAM DESCRIPTION: SHAD Slaughter CP - 08/11/2017 7:37 pm CLINICAL HISTORY: CVA COMPARISON: None. TECHNIQUE: Real-time sonographic evaluation of both carotid systems was performed. Doppler interroga tion was performed with waveform tracing bilaterally. FINDINGS: Normal high resistance waveforms are noted in both external carotid arteries. The common c arotid arteries and internal carotid arteries show normal low resistance waveforms. Bilateral carotid bulb and ICA calcified and noncalcified plaquing changes are present. No dissection is present. On visual inspection, no significant degree of luminal narrowing. Peak systolic and end diastolic velocity values and the ICA/CCA ratios are in the non-hemodynamically significant range. Antegrade flow seen in both vertebral arteries. Velocity values and ratios were recorded and are retained in the patient's imaging records. IMPRESSION: Bilateral calcified and noncalcified plaquing changes are present. Currently stenosis does not appear to be hemodynamically significant. No stenosis greater than 40- 50 % identified.
[2017-08-11] MEDS ORDERED: ATORVASTATIN 20 MG TAB PO SCH (21:00)
[2017-08-11] MEDS: ENOXAPARIN 40 MG/0.4 ML SQ SCH (21:12)
[2017-08-11] MEDS: NA CHLORIDE 0.9% 1,000 ML IV SCH (21:13)
--- NOTE | 2017-08-11 22:40 | EKG ---
Test Date: 2017-08-11 Test Time: 15:27:12 Voice Instructor: EWA MEASUREMENT RESULTS: Intervals: Rate: 60 TX: 168 QRSD: 78 QT: 390 QTc: 390 [place]: P: 73 TX: 168 QRS: 53 T: 70 INTERPRETIVE STATEMENTS: Atrial-paced rhythm Nonspecific ST abnormality Abnormal ECG Compared to ECG 07/19/2017 10:38:02 Sinus rhythm no longer present ST (T wave) deviation still present Electronically Signed On 08-11-17 22:39:19 CDT by Epifanio Gonzalez
[2017-08-11 23:27] VITALS: BMI 22.7
[2017-08-12 04:25] LABS: Absolute Lymphocytes (CBC) 1.6 K/uL (0.7-4.9); Absolute Monocytes 0.6 K/uL (0.1-1.3); Absolute Neutrophil 3.2 K/uL (1.8-8.0); Basophils % 1.6 % (0-1.3); Eosinophils % 2.4 % (0-4.4); Hematocrit 34.7 % (39.6-49.0); Lymphocytes % 28.6 % (15.3-44.8); MCH 29.2 pg (27.0-35.0); MCV 88.3 fL (80-100); MPV 9.1 fL (7.6-11.3); Monocytes % 10.8 % (3.3-12.3); RBC Red Blood Cell Count 3.93 M/uL (4.33-5.43)
[2017-08-12] MEDS ORDERED: MAGNESIUM SULFATE 1 gm IVPB 1 GM/100 ML BAG IV ONE (04:59)
[2017-08-12 05:21] LABS: ALT/SGPT 13 IU/L (10-60); AST/SGOT 18 IU/L (10-42); Albumin 3.3 g/dL (3.2-5.5); Alkaline Phosphatase 91 IU/L (42-121); BUN Blood Urea Nitrogen 12 mg/dL (6-20); Bicarbonate 26 mEq/L (21-31); Bilirubin Total 0.5 mg/dL (0.3-1.2); Glucose Level 101 mg/dL (65-120); HDL Cholesterol 29 mg/dL (27-67); LDL Cholesterol, Calculated 67 (<130); Potassium 3.7 mEq/L (3.6-5.0); Protein, Total 6.2 g/dL (6.0-8.3); Sodium Level 138 mEq/L (135-145)
[2017-08-12] MEDS ORDERED: POTASSIUM CL SA 10 MEQ TAB PO ONE (05:24)
--- NOTE | 2017-08-12 07:23 | P.HP ---
Certification for Inpatient Patient admitted to: Observation With expected LOS: <2 Midnights Patient will require the following post-hospital care: None Practitioner: I am a practitioner with admitting privileges, knowledge of patient current condition, hospital course, and medical plan of care. Services: Services provided to patient in accordance with Admission requirements found in Title 42 Section 412.3 of the Code of Federal Regulations Patient History Date of Service: 08/11/17 Reason for admission: Lethargic and chest pain History of Present Illness: Patient is a 67-year-old gentleman who has a history of hypertension and CVA and coronary artery disease who presented to the hospital with lethargy. Patient states he was sleeping a lot more than normal. Was feeling sluggish and tired throughout the day. He is having a hard time waking himself up. He came into the hospital for further evaluation. On the ride to the hospital he started having chest pain. Pain was sternal with no radiation. Patient biggest complaint was his being so fatigued. In the emergency room he had a CT of the head which was negative. His cardiac workup was negative as well. Patient was admitted to the hospital for further evaluation. Patient currently is feeling better. He does feel more rested. He was scheduled to get an MRI however he has a pacemaker defibrillator. I do not please this is MRI compatible. Will go ahead and get physical therapy evaluation for assessment on his ambulation. If he does well then he may be able to go home. Allergies No Known Drug Allergies Allergy (Verified 08/11/17 23:36) Unknown Home Medications: Metoprolol Tartrate [Lopressor*] 25 mg PO BID 01/12/14 Pantoprazole Sodium [Protonix] 40 mg PO DAILY #30 tablet. 05/20/16 Aspirin [Aspirin EC 81 MG] 81 mg PO DAILY #30 tablet. 09/21/16 Atorvastatin Calcium [Lipitor] 80 mg PO BEDTIME 09/21/16 Clopidogrel Bisulfate [Plavix*] 75 mg PO DAILY 09/21/16 Albuterol Sulfate [Proair Hfa] 8.5 gm IH TID PRN #1 hfa.aer.ad 07/12/17 Budesonide/Formoterol Fumarate [Symbicort 160-4.5 Mcg Inhaler] 2 puff IH BID #1 hfa.aer.ad 07/12/17 Codeine/APAP [Tylenol W/Codeine #3 tab] 1 tab PO Q6HP PRN 08/11/17 - Past Medical/Surgical History Has patient received pneumonia vaccine in the past: No Diabetic: No -: COPD -: Pneumonia - childhood -: Skin CA - arms -: Spinal meningitis - childhood -: RI -: Stroke -: BPH -: HTN -: Dementia -: Hernia -: PACEMAKER PLACEMENT -: STENT PLACEMENT (HEART AND RIGHT LEG) -: HERNIA REPAIR - L. side -: REMOVED skin CANCERS L arm -: pacemaker -: gallbladder removal - Family History Mother Medical History: Heart disease, Hypertension, Stroke, Cancer, Other (see notes) Notes: ovarian CA Father Medical History: Lung disease - Social History Smoking Status: Current every day smoker Alcohol use: No CD- Drugs: No Caffeine use: Yes Place of Residence: Home Review of Systems 10-point ROS is otherwise unremarkable Physical Examination - Vital Signs Temperature: 97.1 F Blood Pressure: 143/64 Pulse: 62 Respirations: 18 Pulse Ox (%): 97 - Physical Exam General: Alert, In no apparent distress, Oriented x3 HEENT: Atraumatic, PERRLA, Mucous membr. moist/pink, EOMI, Sclerae nonicteric Neck: Supple, 2+ carotid pulse no bruit, No LAD, Without JVD or thyroid abnormality Respiratory: Clear to auscultation bilaterally, Normal air movement Cardiovascular: Regular rate/rhythm, Normal S1 S2, No murmurs Gastrointestinal: Normal bowel sounds, Soft and benign, Non-distended, No tenderness Musculoskeletal: No clubbing, No swelling, No contractures, No tenderness Integumentary: No rashes Neurological: Normal gait, Normal speech, Normal tone, Sensation intact, Cranial nerves 3-12 intact, Normal affect, Abnormal strength Lymphatics: No axilla or inguinal lymphadenopathy - Studies Laboratory Data (last 24 hrs) 08/11/17 16:28: PT 12.4, INR 1.05, APTT 27.4 08/11/17 16:28: WBC 7.0, Hgb 12.4 L, Hct 37.1 L, Plt Count 183 08/11/17 16:28: B-Natriuretic Peptide 47 08/11/17 16:28: Sodium 135, Potassium 4.3, BUN 15, Creatinine 0.91, Glucose 103 , Magnesium 1.8, Total Bilirubin 0.4, AST 20, ALT 14, Alkaline Phosphatase 101 Assessment & Plan - Problems (Diagnosis) (1) Generalized weakness Current Visit: Yes Status: Acute (2) Lethargic Current Visit: Yes Status: Acute (3) CAD (coronary artery disease) Current Visit: Yes Status: Acute (4) Hypertension Current Visit: Yes Status: Acute (5) Prostatic hypertrophy, benign, with obstruction Onset Date: 10/18/15 Current Visit: No Status: Chronic (6) Pulmonary fibrosis Onset Date: 01/12/14 Current Visit: No Status: Chronic (7) Tobacco abuse Current Visit: No Status: Chronic - Plan Plan: 1. Hold off on MRI because of his pacemaker-will need to find out if he is MRI compatible 2. Anti-platelet therapy and statin therapy 3. Physical therapy evaluation 4. Patient did well with bedside swallow eval 5. Monitor electrolytes 6. GI and DVT prophylaxis Discharge Plan: Home Plan to discharge in: 24 Hours - Advance Directives Does patient have a Living Will: No Does patient have a Durable POA for Healthcare: No - Code Status/Comfort Care Code Status Assessed: Yes Code Status: Full Code Critical Care: No Time Spent Managing PTS Care (In Minutes): 50
[2017-08-12] MEDS: ENOXAPARIN 40 MG/0.4 ML SQ SCH (08:16)
[2017-08-12] MEDS: NA CHLORIDE 0.9% 1,000 ML IV SCH (08:18)
[2017-08-12 08:35] VITALS: O2SAT 97
[2017-08-12] MEDS ORDERED: CODEINE 30MG/APAP 300MG TAB PO PRN (08:59)
[2017-08-12] MEDS ORDERED: ALBUTEROL INHALER 60 PUFF/8 GM IH PRN (08:59)
[2017-08-12] MEDS ORDERED: PANTOPRAZOLE 40MG TABLET PO SCH (09:00)
[2017-08-12] MEDS ORDERED: CLOPIDOGREL 75 MG TABLET PO SCH (09:00)
[2017-08-12] MEDS ORDERED: METOPROLOL TAR 25 MG TAB PO SCH (09:00)
[2017-08-12] MEDS ORDERED: ASPIRIN EC 81 MG TAB PO SCH (09:00)
--- NOTE | 2017-08-12 12:26 | ECHO ---
HEIGHT: 5 ft 9 in WEIGHT: 154 lb 0 oz DATE OF STUDY: 08/12/[address]: Татьяна Azevedo MD 2-DIMENSIONAL: YES M.MODE: YES DOPPLER: YES COLOR FLOW: YES TDS: PORTABLE: DEFINITY: BUBBLE STUDY: DIAGNOSIS: STROKE CARDIAC HISTORY: CATHERIZATION: YES SURGERY: NO PROSTHETIC VALVE: NO PACEMAKER: YES MEASUREMENTS (cm) DIASTOLIC (NORMALS) SYSTOLIC (NORMALS) IVSd 1.1 (0.6-1.2) LVIDs 2.2 (2.0- 3.5) LVEF 68% LVIDd 3.5 (3.5-5.7) %FS 37% LVPWd 1.3 (0.6-1.2) Ao Diam 2.5 (2.0-3.7) 2 DIMENSIONAL ASSESSMENT: RIGHT ATRIUM: NORMAL LEFT ATRIUM: NORMAL RIGHT VENTRICLE: NORMAL LEFT VENTRICLE: NORMAL TRICUSPID VALVE: NORMAL MITRAL VALVE: NORMAL PULMONIC VALVE: NORMAL AORTIC VALVE: NORMAL PERICARDIAL EFFUSION: NONE AORTIC ROOT: NORMAL LEFT VENTRICULAR WALL MOTION: NORMAL DOPPLER/COLOR FLOW: MILD TRICUSPID REGURGITATION COMMENTS: MILD TRISCUSPID REGURGITATION. NORMAL LEFT VENTRICULAR SIZE AND FUNCTION. NO WALL MOTION ABNORMALITY TECHNOLOGIST: LETITIA ALVAREZ
[2017-08-12 12:35] VITALS: TEMP 97
[2017-08-12] MEDS ORDERED: FOLIC ACID 1 MG TABLET PO SCH (14:41)
[2017-08-12 15:44] VITALS: BP 132/74
--- NOTE | 2017-08-12 16:11 | RAD REPORT ---
EXAM DESCRIPTION: RAD - Barium Swallow Modified - 08/12/2017 3:57 pm CLINICAL HISTORY: Aspiration COMPARISON: None. TECHNIQUE: The patient was given liquid, semi-solid and solid forms of barium. Lateral view fluorosc opic imaging was performed in conjunction with speech pathology service. FINDINGS: Laryngeal penetration: cleared with thin liquid when taking pill only Very mild pharyngeal residue: cleared with re-swallow of vallecula, pyriform
--- NOTE | 2017-08-12 17:00 | P.DS ---
Admission Date: 08/11/17 Discharge Date: 08/12/17 Disposition: ROUTINE DISCHARGE Discharge Condition: FAIR Reason for Admission: Lethargic and chest pain Consultations: Dr. Rouse neuro Brief History of Present Illness: From H&P Patient is a 67-year-old gentleman who has a history of hypertension and CVA and coronary artery disease who presented to the hospital with lethargy. Patient states he was sleeping a lot more than normal. Was feeling sluggish and tired throughout the day. He is having a hard time waking himself up. He came into the hospital for further evaluation. On the ride to the hospital he started having chest pain. Pain was sternal with no radiation. Patient biggest complaint was his being so fatigued. In the emergency room he had a CT of the head which was negative. His cardiac workup was negative as well. Patient was admitted to the hospital for further evaluation. Patient currently is feeling better. He does feel more rested. He was scheduled to get an MRI however he has a pacemaker defibrillator Hospital Course: Pt is a 67 yo M w PMHx of CVA. Comes in AMS. Admitted for r/out stroke. Stroke guidelines initiated. Neuro consulted. Pt head CT was negative. MRI cant be done due to pacemaker. Recent pacer check at Dr. Quevedo's office was normal (I spoke with him personally). Echo was normal. Pt had no focal deficits. His mental status returned to normal. He likely suffered a TIA. U/A negative. No seizure type activity. His plt therapy was changed to Brilinta. He was cleared by neuro for DC. He had a MBS for dysphagia and seen by speech. Ok to be on regular diet consistency w thin liquids. Aspiration precautions. Vital Signs/Physical Exam: Temp Pulse Resp BP Pulse Ox 97 F 60 18 132/74 100 08/12/17 15:43 08/12/17 15:43 08/12/17 15:43 08/12/17 15:43 08/12/17 15:43 General: Alert, In no apparent distress, Oriented x3 HEENT: Atraumatic, PERRLA, EOMI Neck: Supple, JVD not distended Respiratory: Clear to auscultation bilaterally, Normal air movement Cardiovascular: No edema, Regular rate/rhythm, Normal S1 S2 Gastrointestinal: Normal bowel sounds, Soft and benign, Non-distended, No tenderness Musculoskeletal: No clubbing, No tenderness Integumentary: No rashes Neurological: Normal speech, Normal strength at 5/5 x4 extr, Normal tone, Cranial nerves 3-12 intact, Normal affect Laboratory Data at Discharge: WBC 5.7 K/uL (4.3-10.9) D 08/12/17 04:16 Hgb 11.5 g/dL (13.6-17.9) L 08/12/17 04:16 Hct 34.7 % (39.6-49.0) L 08/12/17 04:16 Plt Count 163 K/uL (152-406) 08/12/17 04:16 PT 12.4 SECONDS (9.5-12.5) 08/11/17 16:28 INR 1.05 08/11/17 16:28 APTT 27.4 SECONDS (24.3-36.9) 08/11/17 16:28 Sodium 138 mEq/L (135-145) 08/12/17 04:14 Potassium 3.7 mEq/L (3.6-5.0) 08/12/17 04:14 BUN 12 mg/dL (6-20) 08/12/17 04:14 Creatinine 0.82 mg/dL (0.61-1.24) 08/12/17 04:14 Glucose 101 mg/dL (65-120) 08/12/17 04:14 Magnesium 1.8 mg/dL (1.8-2.5) 08/11/17 16:28 Total Bilirubin 0.5 mg/dL (0.3-1.2) 08/12/17 04:14 AST 18 IU/L (10-42) 08/12/17 04:14 ALT 13 IU/L (10-60) 08/12/17 04:14 Alkaline Phosphatase 91 IU/L (42-121) 08/12/17 04:14 B-Natriuretic Peptide 47 pg/ml (<=100) 08/11/17 16:28 Triglycerides 109 mg/dL (35-160) 08/12/17 04:14 Cholesterol 118 mg/dL (<200) 08/12/17 04:14 HDL Cholesterol 29 mg/dL (27-67) 08/12/17 04:14 Cholesterol/HDL Ratio 4.07 08/12/17 04:14 Home Medications: Metoprolol Tartrate [Lopressor*] 25 mg PO BID 01/12/14 Pantoprazole Sodium [Protonix] 40 mg PO DAILY #30 tablet. 05/20/16 Aspirin [Aspirin EC 81 MG] 81 mg PO DAILY #30 tablet. 09/21/16 Atorvastatin Calcium [Lipitor] 80 mg PO BEDTIME 09/21/16 Albuterol Sulfate [Proair Hfa] 8.5 gm IH TID PRN #1 hfa.aer.ad 07/12/17 Budesonide/Formoterol Fumarate [Symbicort 160-4.5 Mcg Inhaler] 2 puff IH BID #1 hfa.aer.ad 07/12/17 Codeine/APAP [Tylenol #3*] 1 tab PO Q6HP PRN 08/11/17 Ticagrelor [Brilinta*] 90 mg PO BID #60 tablet 08/12/17 New Medications: Ticagrelor [Brilinta*] 90 mg PO BID #60 tablet Patient Discharge Instructions: f/up w PCP in 2-3 days. f/up w neurologist Dr. Rouse in 2 weeks. Return to ER for worsening condition Diet: AHA Activity: Fall precautions
--- NOTE | 2017-08-12 18:24 | CON ---
Reason For Consultation: Consultation called because of possible stroke and altered mental status. History Of Present Illness: Mr. Morfin is a 67-year-old patient with a history of hypertension, coronary artery disease and prior stroke, who comes in with more somnolence, confusion, disorientation. The patient has had his old stroke which involved right-sided weakness and it has resolved. He is doing very well, but in addition there is a confusion and disorientation. He had some left-sided weakness. At [facility], his head CT scan showed no acute ischemic or hemorrhagic change. The study was compared to one from July 09, when he had a presentation for altered mental status at that time and there is no difference between the 2 studies. It did show atrophy and chronic ischemic change on both of them that are similar. The patient does report that he has returned closer to baseline functioning, but is about 80% away from that. His blood work revealed no significant abnormalities. He is mildly anemic at 11.5 hemoglobin. Otherwise, normal white blood cell count, normal coagulation panel, chemistries essentially unremarkable. Liver function studies are normal. Cholesterol panel showed an HDL of 29 and cholesterol to HDL ratio of 4.06, LDL cholesterol of 667. Urine analysis was unremarkable. He has electrocardiogram in the emergency room that showed atrial paced rhythm, nonspecific ST changes, and his chest x-ray showed no acute abnormalities. His carotid artery ultrasound showed bilateral calcified and noncalcified plaque with stenosis, no greater than 45% bilaterally, which is not hemodynamically significant. Echocardiogram showed ejection fraction of 68% with mild tricuspid regurgitation, otherwise a normal study. Past Medical History: As indicated above with prior stroke, hypertension, dyslipidemia, COPD, recent pneumonia, benign prostatic hypertrophy, and dementia. Allergies: NO KNOWN DRUG ALLERGIES. Medications: At home, metoprolol 25 mg twice daily, Protonix 40 mg daily, aspirin 81 mg daily, Lipitor 80 mg at bedtime, Plavix 75 mg daily, six Codeine with Tylenol as needed and Symbicort inhaler. Surgical History: Hernia repair, pacemaker placements, stent placement, skin cancer removed, cholecystectomy. Family History: Lung disease in father and heart disease in mother and hypertension, stroke, cancer in mother. Social History: Smokes on a daily basis. Alcohol use. Review of Systems: He denies any recent fevers, chills, nausea, vomiting, myalgias, arthralgias, rash, headache, weight change. Physical Examination: Vital Signs: Blood pressure 138/68, pulse 60, respiratory rate 16, temperature 97, oxygen saturation 100%. General: Mr. Morfin is resting in bed. He is in no significant distress. He is normocephalic, atraumatic. Sclerae anicteric. Oropharynx pink and moist. Neck: Supple. Chest: Clear. Heart: Regular. Extremities: Show no edema or cyanosis. Neurologic: He is alert and oriented to situation, place, and person. He has no obvious focal cranial nerve deficits. Motor examination bilaterally has strength that is full despite reported history of strokes, 5/5 proximally and distally in the lower extremities, 5 5 proximally and distally. Sensory examination, he has intact light, touch, and temperature in the arms and legs. Coordination intact in upper and lower extremities. His gait, he has good stance and stride and has some mildly wide-base and unsteady. Assessment/Plan: Mr. Morfin is a 67-year-old patient with possible transient ischemic attack. He has no acute findings on his exam and he has had CT scan. His cardiac workup thus far is negative. Stroke workup reveals unremarkable lipid panel. Liver function studies normal. Complete blood count also normal. Plan: 1. Continue with aspirin, Plavix and folic acid 1 mg. 2. Continue with aggressive management of lipids, hypertension. The patient should stop smoking and he may be discharged to home and follow up in clinic in 1 month. MIAN Voice ID: [id number] Report ID: [id number] MATILDE
[2017-08-12] MEDS ORDERED: TICAGRELOR 90 MG TABLET PO SCH (21:00)
[2017-08-12] MEDS ORDERED: DULERA 100/5 (MOMETASONE/FORMOTEROL) INHALER IH SCH (21:00)
[2017-08-13] MEDS ORDERED: ASPIRIN EC 81 MG TAB PO SCH (09:00)
== END 2017-08-12 17:49 | disposition home or self-care (01) ==
LOC: ER 15:00 → ERHOLD 18:25 → 4TH 19:54
PROVIDERS: ADMIT Family Medicine; ATTEND Hospitalist
DX: R41.82 Altered mental status, unspecified (principal); I10 Essential (primary) hypertension; R53.83 Other fatigue; I25.10 Atherosclerotic heart disease of native coronary artery without angina pectoris; J44.9 Chronic obstructive pulmonary disease, unspecified; N40.0 Benign prostatic hyperplasia without lower urinary tract symptoms; Z86.73 Personal history of transient ischemic attack (TIA), and cerebral infarction without residual deficits; Z95.0 Presence of cardiac pacemaker; Z95.5 Presence of coronary angioplasty implant and graft; F17.210 Nicotine dependence, cigarettes, uncomplicated
CPT/HCPCS: 36415 ×2; 70450; 71045; 74230; 80048; 80053; 80061 ×2; 80076; 81003; 82550; 82553; 83735; 83880; 84484; 85025 ×2; 85610; 85730; 92610; 93005; 93306; 93880; 94760 ×2; 96360; 96361; 97163; 99285; J1650 ×2; J3475; J7030 ×2; G0378; J7606

== ENCOUNTER 2017-09-08 22:59 | Emergency (ER) | payer OTHER ==
--- OUTSIDE RECORDS SUMMARY | 2017-09-08 23:01 | XMS REPORT | Clinical Summary ---
:1950 Demographics Address [address] [place] [address] Home Phone Mobile Phone Preferred Language Setswana Marital Status Unknown Holiness Affiliation Unknown Race White Ethnic Group Not or Author Organization [facility] Address [address] [place] [address] Phone Support Name Relationship Address Phone Mami Pena [address] [place] [address] Unavailable Naturalson 11 03/[address] [place] [address] Care Team Providers Name Role Phone Unavailable [...] prior to 03/12 arrival Acute ischemic stroke ([facility]) 03/11/2017 HLD (hyperlipidemia) 01/17/2016 Peripheral vascular disease ([facility]) 01/14/2016 Postoperative anemia 01/14/2016 Coronary artery disease involving [place] coronary artery 01/10/2016 PAD (peripheral artery disease) ([facility]) 01/10/2016 HTN (hypertension) 01/10/2016 Iliac artery stenosis, bilateral ([facility]) 01/10/2016 Unstable angina ([facility]) 01/10/2016 COPD (chronic obstructive pulmonary disease) ([facility]) 01/10/2016 Tobacco abuse 01/10/2016 ACS (acute coronary syndrome) ([facility]) 01/10/2016 Encounters Date Type Specialty Care Team Description 03/11/2017 - Hospital Encounter General Internal Corbin Garcia Acute ischemic 03/14/2017 Medicine MD Doug stroke Stephanie Lugo ([facility]);Received MD Addie tissue plasminogen activator (t-PA) less than 24 hours prior to arrival;Essential hypertension;Periph eral vascular disease ([facility]);Tobacco abuse;Tobacco abuse counseling after 09/07/2016 Social History Tobacco Use Types Packs/Day Years Used Date Current Every Day Smoker Cigarettes 0.5 50 Smokeless Tobacco: Never Used Tobacco Cessation: Ready to Quit: No; Counseling Given: No Comments: 5-6 cigarettes a day Alcohol Use Drinks/Week oz/Week Comments No Sex Assigned at Date Recorded Not on file Last Filed Vital Signs Vital Sign Reading Time Taken Blood Pressure 119/65 03/14/2017 7:15 AM [facility] Pulse 60 03/14/2017 7:15 AM [facility] Temperature 35.8 C (96.4 F) 03/14/2017 7:15 AM [facility] Respiratory Rate 17 03/14/2017 7:15 AM [facility] Oxygen Saturation 96% 03/14/2017 7:15 AM [facility] Inhaled Oxygen Concentration - - Weight 70.4 kg (155 lb 3.3 oz) 03/11/2017 11:00 PM [facility] Height 172.7 cm (5' 8") 03/11/2017 11:00 PM [facility] Body Mass Index 23.6 03/11/2017 11:00 PM [facility] Plan of Treatment Health Maintenance Due Date Last Done Comments INFLUENZA VACCINE 12/06/2017 Implants Implanted Type Area Mill Controller Device Expiration Model / Identifier Date Serial / Lot Grft Eptfe-Heparin Rng [id number] - [id number] Graft/Pa N/A: MARIELENA PEREZE & 09/01/2019 [id number] / Implanted: Qty: 1 on 01/13/2016 by Oniel Smith MD [facility] Arterial ASSC: [facility] [id number] / Results ARRYTHMIA IMPLANT REPORT - SCAN [...] - 1 % Specimen Performing Laboratory Blood [address] [address] CBC with platelet count + automated diff (03/14/2017 4:53 AM)Only the most recent of4 resultswithin the time period is included. Specimen Performing Laboratory Blood Narrative The following orders were created for panel order CBC with platelet count + automated diff. Procedure Abnormality Status --------- ------ CBC with platelet count ...[[id number]]AbnormalFinal result Please view results for these tests [...] PATIENTS. Specimen Performing Laboratory Blood [facility] [address] ECHOCARDIOGRAM REPORT - SCAN (03/12/2017 4:57 PM)CT [...] MD Report Verified Date/Time:03/12/2017 15:31:17 Reading Location: [address] Neuro Reading Room Procedure Note Interface, External Ris In - 03/12/2017 3:33 PM [facility] FINAL REPORT CT head without contrast 03/12/2017 [...] Verified Date/Time: 03/12/2017 15:31:17 Reading Location: [facility] C013V Neuro Reading Room Troponin I (03/12/2017 2:28 PM)Only the most recent of3 resultswithin the time period is included. Component Value Ref Range Troponin I 0.02 0.00 - 0.03 ng/mL Specimen Performing Laboratory Blood - [place], [place] [address] Narrative Troponin I (TnI) levels must be [...] 414 ms QTC Calculation(Bazett) 414 ms P [place] -18 degrees R [place] 9 degrees T [place] 68 degrees Electronic atrial pacemaker ST abnormality, possible digitalis effect Abnormal ECG No previous ECGs available Confirmed by Jasmeet HAIDER MICHAEL ([id number]) on 03/13/2017 9:39:18 AM Procedure Note Interface, External Ris In - 03/13/2017 9:39 AM [facility] Ventricular Rate 60 BPM Atrial Rate 60 BPM P-R Interval 138 ms QRS Duration 74 ms Q-T Interval 414 ms QTC Calculation(Bazett) 414 ms P [place] -18 degrees R [place] 9 degrees T [place] 68 degrees Electronic atrial pacemaker ST abnormality, possible digitalis effect Abnormal ECG No previous ECGs available Confirmed by Jasmeet HAIDER MICHAEL ([id number]) on 03/13/2017 9:39:18 AM 2D Echo W/Doppler(CW/PW/Color) (03/12/2017 10:53 AM) Component Value Ref Range Ejection Fraction Specimen Performing Laboratory [facility] ECHO HEARTLAB MKCKESSROCK CPACS Narrative Transthoracic Echocardiography Report (TTE) Demographics Patient Name Tyron PENA of Study 03/12/2017 [id number] GenderMale Visit Number [id number] Chuck [id number] Number [id number] Number Date of Birth1950 Referring Physician Corbin Garcia Age67 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 Clinical History COPD,CVA,DEMENTIA,ENLARGED PROSTATE,HERNIA CEREBRI,HTN,CA,SMOKING Height: 68 inches Weight: 70.31 kg (155 [...] MD Report Verified Date/Time:03/12/2017 10:06:57 Reading Location: [facility] Radiology Reading Room Procedure Note Interface, External Ris In - 03/12/2017 10:09 AM [facility] FINAL REPORT Two frontal chest images Discussion: [...] Report Verified Date/Time: 03/12/2017 10:06:57 Reading Location: [facility] Radiology Reading Room PHERAL VASCULAR REPORT - SCAN (03/12/2017 8:20 AM)Homocysteine - Fasting ( 03/12/2017 8:13 AM) Component Value Ref Range Homocysteine 11.8 5.1 - 15.4 umol/L Specimen Performing Laboratory Blood - [place], [address] [address] Narrative Fasting Hemoglobin A1c - Fasting (03/12/2017 8:13 AM) Component Value Ref Range Hemoglobin A1C 5.6 4.3 - 6.1 % Specimen Performing Laboratory Blood - [place], [address] [address] Narrative Fasting Creatine Kinase (CK), Total and MB (03/12/2017 8:13 AM)Only the most recent of2 resultswithin the time period is included. Component Value Ref Range Total CK 59 29 - 200 U/L CK-MB 1.0 0.0 - 6.6 ng/mL MB Relative Index 1.7 % Specimen Performing Laboratory Blood - [place], [address] [address] Narrative CK-MB Reference Range: <6.7Normal 6.7-10.0Borderline >10.0 Abnormal Fasting Fasting Fasting lipid panel (03/12/2017 8:13 AM) Component Value Ref Range Triglycerides 151 mg/dL Cholesterol 147 mg/dL HDL 29 mg/dL LDL Calculated 88 mg/dL Specimen Performing Laboratory Blood - [place], [address] [address] Narrative Triglyceride Reference Range: Low Risk <150 Vzgfxqrouv759-791 High Risk 200-499 Very High Risk>=500 Cholesterol Reference Range: Low Risk <200 Pmzjmeeiyi757-649 High Risk>240 HDL Cholesterol Reference Range: Low Risk >=60 High Risk <40 LDL Cholesterol Reference Range: Optimal<100 Near Vvkfisl134-914 Sukjalavaz556-307 Ucwk976-951 Very High >=190 Fasting Carotid doppler bilateral (03/12/2017 6:19 AM) Component Value Ref Range Ejection Fraction Specimen Performing Laboratory [facility] ECHO HEARTLAB [facility] Impressions Right Impression 1. There is [...] Demographics Patient Name JEAN,Date of Study2017 RADHA [id number] Visit Number [id number] Gender Male Accession Number [id number] Date of Birth1950 [facility] Room [id number] Physician Elaine Garcia MD, RPVI Procedure Type of Study: Cerebral: Carotid, CAROTID DOPPLER, BILATERAL. Indications for Study:Stroke. Blood Pressure:Right arm 116/68 mmHg.Left arm 123/73 mmHg. Patient Status:Routine. Study Location:Portable. Technical Quality:Adequate visualization. Risk Factors History of Disease + + +--------+ !Diagnosis !Date!Comments! + + +--------+ !History/Risk Factors: !03/12/2017!Stroke! + + +--------+ Procedure Note Interface, External Ris In - 03/12/2017 7:32 AM [facility] PV LAB - Carotid Duplex Study Demographics Patient Name JEAN, Date of Study 03/12/2017 RADHA Age 67 Visit Number [id number] Gender Male Accession Number [id number] Date of 1950 Referring Corbin Garcia Room Number 7518 Physician Manager [employer] [address] Interpreting Cristobal Perez T Physician [...] ng/mL Specimen Performing Laboratory Blood - [place], [address] [address] TSH/Free T4 If Indicated (03/11/2017 11:41 PM) Component Value Ref Range TSH 2.01 0.35 - 4.94 uIU/mL Specimen Performing Laboratory Blood - [place], [address] [address] Prothrombin time/INR (03/11/2017 11:41 PM) Component Value Ref Range Protime 17.2 (H) 11.7 - 14.7 seconds INR 1.4 <=5.9 Specimen Performing Laboratory Blood - [place], [address] [address] Narrative RECOMMENDED COUMADIN/WARFARIN INR THERAPY RANGES STANDARD DOSE: 2.0 - 3.0 Includes: PROPHYLAXIS for venous thrombosis, systemic embolization; TREATMENT for venous thrombosis and/or pulmonary embolus. HIGH RISK: Target INR is 2.5-3.5 for patients with mechanical heart valves. after 09/07/2016
--- OUTSIDE RECORDS SUMMARY | 2017-09-08 23:02 | XMS REPORT ---
:1950 Demographics Address [address] [place] [address] SON Email Address NONE Preferred Language Unknown Marital Status Unknown Latter-Day Affiliation Unknown Race Unknown Additional Race(s) Unavailable Ethnic Group Unknown [facility] Address [address] [place] [address] Care Team Providers Name Role Phone MECCA [...] Comments SODIUM (BEAKER) (test 136 meq/L 136-145 tjar=069) POTASSIUM (BEAKER) (test 4.0 meq/L 3.5-5.1 gqsh=996) CHLORIDE (BEAKER) (test 106 meq/L 98-107 gfit=586) CO2 (BEAKER) (test jnyx=892) 23 meq/L 22-29 BLOOD UREA NITROGEN (BEAKER) 15 mg/dL 7-21 (test ykqk=943) CREATININE (BEAKER) (test 0.92 mg/dL 0.57-1.25 bvcr=498) GLUCOSE RANDOM (BEAKER) 92 mg/dL 70-105 (test unxy=589) CALCIUM (BEAKER) (test 8.7 mg/dL 8.4-10.2 wsjf=483) EGFR (BEAKER) (test 82 mL/min/1.73 sq m ESTIMATED GFR IS NOT nchw=5007) ACCURATE CREATININE CLEARANCE IN PREDICTING GLOMERULAR FILTRATION RATE. ESTIMATED GFR IS NOT APPLICABLE FOR DIALYSIS PATIENTS. CBC W/PLT COUNT & AUTO [id number] 05:55:00 Test Item Value Reference Range Comments WHITE BLOOD CELL COUNT (BEAKER) (test uskp=505) 5.9 K/ L 3.5-10.5 RED BLOOD CELL COUNT (BEAKER) (test vpnx=760) 4.25 M/ L 4.63-6.08 HEMOGLOBIN (BEAKER) (test xwur=303) 12.3 GM/DL 13.7-17.5 HEMATOCRIT (BEAKER) (test pfdc=615) 37.8 % 40.1-51.0 MEAN CORPUSCULAR VOLUME (BEAKER) (test unuw=039) 88.9 fL 79.0-92.2 MEAN CORPUSCULAR HEMOGLOBIN (BEAKER) (test 28.9 pg 25.7-32.2 imvw=837) MEAN CORPUSCULAR HEMOGLOBIN CONC (BEAKER) (test 32.5 GM/DL 32.3-36.5 fniw=017) RED CELL DISTRIBUTION WIDTH (BEAKER) (test 15.9 % 11.6-14.4 nbos=287) PLATELET COUNT (BEAKER) (test cklj=199) 173 K/CU MM 150-450 MEAN PLATELET VOLUME (BEAKER) (test watn=995) 11.5 fL 9.4-12.4 NUCLEATED RED BLOOD CELLS (BEAKER) (test 0 /100 WBC 0-0 znda=286) NEUTROPHILS RELATIVE PERCENT (BEAKER) (test 48 % azpx=122) LYMPHOCYTES RELATIVE PERCENT (BEAKER) (test 34 % mpyf=490) MONOCYTES RELATIVE PERCENT (BEAKER) (test 12 % ahnh=019) EOSINOPHILS RELATIVE PERCENT (BEAKER) (test 4 % jkwb=890) BASOPHILS RELATIVE PERCENT (BEAKER) (test 2 % mddo=314) NEUTROPHILS ABSOLUTE COUNT (BEAKER) (test 2.85 K/ L 1.78-5.38 jeck=333) LYMPHOCYTES ABSOLUTE COUNT (BEAKER) (test 2.02 K/ L 1.32-3.57 pfeb=759) MONOCYTES ABSOLUTE COUNT (BEAKER) (test 0.68 K/ L 0.30-0.82 wqzf=113) EOSINOPHILS ABSOLUTE COUNT (BEAKER) (test 0.25 K/ L 0.04-0.54 puyk=457) BASOPHILS ABSOLUTE COUNT (BEAKER) (test 0.09 K/ L 0.01-0.08 qwjr=281) IMMATURE GRANULOCYTES-RELATIVE PERCENT (BEAKER) 1 % 0-1 (test apwp=2222) CBC W/PLT COUNT & AUTO [id number] 05:15:00 Test Item Value Reference Range Comments WHITE BLOOD CELL COUNT (BEAKER) (test guva=010) 5.4 K/ L 3.5-10.5 RED BLOOD CELL COUNT (BEAKER) (test ptgi=910) 4.34 M/ L 4.63-6.08 HEMOGLOBIN (BEAKER) (test pfkb=089) 12.5 GM/DL 13.7-17.5 HEMATOCRIT (BEAKER) (test ubjr=546) 39.0 % 40.1-51.0 MEAN CORPUSCULAR VOLUME (BEAKER) (test okdv=151) 89.9 fL 79.0-92.2 MEAN CORPUSCULAR HEMOGLOBIN (BEAKER) (test 28.8 pg 25.7-32.2 puwq=969) MEAN CORPUSCULAR HEMOGLOBIN CONC (BEAKER) (test 32.1 GM/DL 32.3-36.5 hahy=874) RED CELL DISTRIBUTION WIDTH (BEAKER) (test 15.9 % 11.6-14.4 lexr=567) PLATELET COUNT (BEAKER) (test ipvu=119) 162 K/CU MM 150-450 MEAN PLATELET VOLUME (BEAKER) (test spnv=754) 10.6 fL 9.4-12.4 NUCLEATED RED BLOOD CELLS (BEAKER) (test 0 /100 WBC 0-0 tbzd=403) NEUTROPHILS RELATIVE PERCENT (BEAKER) (test 52 % jmnu=825) LYMPHOCYTES RELATIVE PERCENT (BEAKER) (test 31 % cwri=758) MONOCYTES RELATIVE PERCENT (BEAKER) (test 11 % otes=622) EOSINOPHILS RELATIVE PERCENT (BEAKER) (test 4 % mgzr=634) BASOPHILS RELATIVE PERCENT (BEAKER) (test 2 % fzie=146) NEUTROPHILS ABSOLUTE COUNT (BEAKER) (test 2.78 K/ L 1.78-5.38 rqjf=157) LYMPHOCYTES ABSOLUTE COUNT (BEAKER) (test 1.69 K/ L 1.32-3.57 yzcw=928) MONOCYTES ABSOLUTE COUNT (BEAKER) (test 0.59 K/ L 0.30-0.82 wqwn=951) EOSINOPHILS ABSOLUTE COUNT (BEAKER) (test 0.21 K/ L 0.04-0.54 smgc=709) BASOPHILS ABSOLUTE COUNT (BEAKER) (test 0.09 K/ L 0.01-0.08 kdgu=536) IMMATURE GRANULOCYTES-RELATIVE PERCENT (BEAKER) 1 % 0-1 (test whvm=3401) CT, BRAIN, WITHOUT [id number] 15:31:00FINAL REPORT CT head without contrast 03/12/2017 [...] Paez Verified Date/Time: 03/12/2017 15:31:17 Reading Location: [address] Neuro Reading Room TROPONIN [id number] 15:26:00 Test Item Value Reference Range Comments TROPONIN I (KYARA) (test pvns=988) 0.02 ng/mL 0.00-0.03 Troponin I (TnI) levels [...] acidosis, acute neurological disease, and persistent tachyarrhythmia.HEMOGLOBIN [id number] 12:38:00 Test Item Value Reference Range Comments HEMOGLOBIN A1C (KYARA) (test zmik=627) 5.6 % 4.3-6.1 FastingRAD, CHEST, 1 VIEW, NON [id number] 10:06:00Reason for exam:->rule out pneumoniaShould this be [...] Benites Verified Date/Time: 03/12/2017 10:06:57 Reading Location: [facility] Radiology Reading Room [id number] 09:08:00 Test Item Value Reference Range Comments HOMOCYSTEINE (BEAKER) (test qzde=006) 11.8 umol/L 5.1-15.4 FastingCREATINE KINASE (CK), TOTAL AND [id number] 08:55:00 Test Item Value Reference Range Comments CREATINE KINASE TOTAL (BEAKER) (test zuha=216) 59 U/L 29-200 CREATINE KINASE-MB (BEAKER) (test optu=103) 1.0 ng/mL 0.0-6.6 CREATINE KINASE-MB INDEX (BEAKER) (test fvid=130) 1.7 % CK-MB Reference Range:<6.7 Normal6.7-10.0 Borderline>10.0 AbnormalFastingFastingTROPONIN [id number] 08:55:00 Test Item Value Reference Range Comments TROPONIN I (BEAKER) (test erfb=049) < ng/mL 0.00-0.03 Troponin I (TnI) levels [...] acidosis, acute neurological disease, and persistent tachyarrhythmia.FastingLIPID [id number] 08:48:00 Test Item Value Reference Range Comments TRIGLYCERIDES (BEAKER) (test mxij=370) 151 mg/dL CHOLESTEROL (BEAKER) (test gtzf=016) 147 mg/dL HDL CHOLESTEROL (BEAKER) (test kesd=773) 29 mg/dL LDL CHOLESTEROL CALCULATED (BEAKER) (test 88 mg/dL whjx=632) Triglyceride Reference Range: Low Risk <150 Borderline 150- 199 High Risk 200-499 Very High Risk >=500Cholesterol Reference Range: Low Risk <200 Borderline 200-239 High Risk > 240HDL Cholesterol Reference Range: Low Risk >=60 High Risk <40LDL Cholesterol Reference Range: Optimal <100 Near Optimal 100-129 Borderline 130-159 High 160-189 Very High >=190 FastingBASIC METABOLIC [id number] 08:48:00 Test Item Value Reference Range Comments SODIUM (BEAKER) (test 136 meq/L 136-145 gfue=198) POTASSIUM (BEAKER) (test 4.4 meq/L 3.5-5.1 onwh=771) CHLORIDE (BEAKER) (test 104 meq/L 98-107 exiq=964) CO2 (BEAKER) (test 25 meq/L 22-29 rrmf=693) BLOOD UREA NITROGEN 15 mg/dL 7-21 (BEAKER) (test txdr=549) CREATININE (BEAKER) (test 0.87 mg/dL 0.57-1.25 llyc=012) GLUCOSE RANDOM (BEAKER) 102 mg/dL 70-105 (test ukwk=292) CALCIUM (BEAKER) (test 8.9 mg/dL 8.4-10.2 cndq=498) EGFR (BEAKER) (test 87 mL/min/1.73 sq m ESTIMATED GFR IS NOT mlro=7273) ACCURATE CREATININE CLEARANCE IN PREDICTING GLOMERULAR FILTRATION RATE. ESTIMATED GFR IS NOT APPLICABLE FOR DIALYSIS PATIENTS. FastingCBC W/PLT COUNT & AUTO [id number] 08:24:00 Test Item Value Reference Range Comments WHITE BLOOD CELL COUNT (BEAKER) (test tafc=604) 5.7 K/ L 3.5-10.5 RED BLOOD CELL COUNT (BEAKER) (test jyfc=438) 4.23 M/ L 4.63-6.08 HEMOGLOBIN (BEAKER) (test nwsf=443) 12.3 GM/DL 13.7-17.5 HEMATOCRIT (BEAKER) (test gvaw=713) 37.9 % 40.1-51.0 MEAN CORPUSCULAR VOLUME (BEAKER) (test vcnu=024) 89.6 fL 79.0-92.2 MEAN CORPUSCULAR HEMOGLOBIN (BEAKER) (test 29.1 pg 25.7-32.2 eshm=415) MEAN CORPUSCULAR HEMOGLOBIN CONC (BEAKER) (test 32.5 GM/DL 32.3-36.5 vvls=692) RED CELL DISTRIBUTION WIDTH (BEAKER) (test 15.9 % 11.6-14.4 fgnl=246) PLATELET COUNT (BEAKER) (test klkz=058) 156 K/CU MM 150-450 MEAN PLATELET VOLUME (BEAKER) (test ofyy=257) 10.2 fL 9.4-12.4 NUCLEATED RED BLOOD CELLS (BEAKER) (test 0 /100 WBC 0-0 nolo=804) NEUTROPHILS RELATIVE PERCENT (BEAKER) (test 47 % yabv=994) LYMPHOCYTES RELATIVE PERCENT (BEAKER) (test 37 % xhjr=368) MONOCYTES RELATIVE PERCENT (BEAKER) (test 12 % mmfa=514) EOSINOPHILS RELATIVE PERCENT (BEAKER) (test 3 % elbb=525) BASOPHILS RELATIVE PERCENT (BEAKER) (test 2 % lsqa=786) NEUTROPHILS ABSOLUTE COUNT (BEAKER) (test 2.66 K/ L 1.78-5.38 jmzo=985) LYMPHOCYTES ABSOLUTE COUNT (BEAKER) (test 2.09 K/ L 1.32-3.57 oudu=495) MONOCYTES ABSOLUTE COUNT (BEAKER) (test 0.70 K/ L 0.30-0.82 kjzv=481) EOSINOPHILS ABSOLUTE COUNT (BEAKER) (test 0.15 K/ L 0.04-0.54 dtbj=093) BASOPHILS ABSOLUTE COUNT (BEAKER) (test 0.09 K/ L 0.01-0.08 vyix=213) IMMATURE GRANULOCYTES-RELATIVE PERCENT (BEAKER) 1 % 0-1 (test qwrl=9656) TSH/FREE T4 IF [id number] 03:38:00 Test Item Value Reference Range Comments THYROID STIMULATING HORMONE (BEAKER) (test 2.01 uIU/mL 0.35-4.94 dgad=517) VITAMIN B12 AND [id number] 03:38:00 Test Item Value Reference Range Comments VITAMIN B12 (BEAKER) (test ydur=093) 1008 pg/mL 213-816 FOLATE (BEAKER) (test danf=539) 8.4 ng/mL >=7.0 CREATINE KINASE (CK), TOTAL AND [id number] 01:03:00 Test Item Value Reference Range Comments CREATINE KINASE TOTAL (BEAKER) (test iysf=299) 66 U/L 29-200 CREATINE KINASE-MB (BEAKER) (test gscl=605) 1.4 ng/mL 0.0-6.6 CREATINE KINASE-MB INDEX (BEAKER) (test nsfe=432) 2.1 % CK-MB Reference Range:<6.7 Normal6.7-10.0 Borderline>10.0 AbnormalTROPONIN [id number] 01:03:00 Test Item Value Reference Range Comments TROPONIN I (BEAKER) (test xkfc=751) 0.02 ng/mL 0.00-0.03 Troponin I (TnI) levels [...] acute neurological disease, and persistent tachyarrhythmia.BASIC METABOLIC [id number] 00:56:00 Test Item Value Reference Range Comments SODIUM (BEAKER) (test 136 meq/L 136-145 vytw=842) POTASSIUM (BEAKER) (test 3.9 meq/L 3.5-5.1 ngpi=542) CHLORIDE (BEAKER) (test 104 meq/L 98-107 eelg=654) CO2 (BEAKER) (test 24 meq/L 22-29 zvml=830) BLOOD UREA NITROGEN 14 mg/dL 7-21 (BEAKER) (test izki=836) CREATININE (BEAKER) (test 0.87 mg/dL 0.57-1.25 pkun=996) GLUCOSE RANDOM (BEAKER) 104 mg/dL 70-105 (test drpf=620) CALCIUM (BEAKER) (test 9.2 mg/dL 8.4-10.2 hooq=231) EGFR (BEAKER) (test 87 mL/min/1.73 sq m ESTIMATED GFR IS NOT cfnm=0343) ACCURATE CREATININE CLEARANCE IN PREDICTING GLOMERULAR FILTRATION RATE. ESTIMATED GFR IS NOT APPLICABLE FOR DIALYSIS PATIENTS. PROTHROMBIN [id number] 00:27:00 Test Item Value Reference Range Comments PROTIME (BEAKER) (test mfpd=737) 17.2 seconds 11.7-14.7 INR (BEAKER) (test igbd=720) 1.4 <=5.9 RECOMMENDED COUMADIN/WARFARIN INR THERAPY RANGESSTANDARD DOSE: 2.0 - 3.0 Includes: PROPHYLAXIS forvenous thrombosis, systemic embolization; TREATMENT for venous thrombosis and/or pulmonary embolus.HIGH RISK: Target INR is 2.5-3.5 for patients with mechanical heart valves.CBC W/PLT COUNT & AUTO [id number] 00:01:00 Test Item Value Reference Range Comments WHITE BLOOD CELL COUNT (BEAKER) (test lxpx=205) 8.2 K/ L 3.5-10.5 RED BLOOD CELL COUNT (BEAKER) (test cmir=013) 4.57 M/ L 4.63-6.08 HEMOGLOBIN (BEAKER) (test zwoe=269) 13.2 GM/DL 13.7-17.5 HEMATOCRIT (BEAKER) (test wess=825) 40.5 % 40.1-51.0 MEAN CORPUSCULAR VOLUME (BEAKER) (test xcgx=776) 88.6 fL 79.0-92.2 MEAN CORPUSCULAR HEMOGLOBIN (BEAKER) (test 28.9 pg 25.7-32.2 crxz=146) MEAN CORPUSCULAR HEMOGLOBIN CONC (BEAKER) (test 32.6 GM/DL 32.3-36.5 lfkv=172) RED CELL DISTRIBUTION WIDTH (BEAKER) (test 15.9 % 11.6-14.4 mtka=621) PLATELET COUNT (BEAKER) (test vune=454) 198 K/CU MM 150-450 MEAN PLATELET VOLUME (BEAKER) (test gbnn=247) 11.2 fL 9.4-12.4 NUCLEATED RED BLOOD CELLS (BEAKER) (test 0 /100 WBC 0-0 zxwo=363) NEUTROPHILS RELATIVE PERCENT (BEAKER) (test 57 % ntie=060) LYMPHOCYTES RELATIVE PERCENT (BEAKER) (test 28 % fjyh=966) MONOCYTES RELATIVE PERCENT (BEAKER) (test 10 % ttnv=008) EOSINOPHILS RELATIVE PERCENT (BEAKER) (test 3 % scde=276) BASOPHILS RELATIVE PERCENT (BEAKER) (test 1 % fxnd=625) NEUTROPHILS ABSOLUTE COUNT (BEAKER) (test 4.66 K/ L 1.78-5.38 wwyx=984) LYMPHOCYTES ABSOLUTE COUNT (BEAKER) (test 2.29 K/ L 1.32-3.57 kqbo=301) MONOCYTES ABSOLUTE COUNT (BEAKER) (test 0.81 K/ L 0.30-0.82 nbnp=097) EOSINOPHILS ABSOLUTE COUNT (BEAKER) (test 0.25 K/ L 0.04-0.54 wjru=695) BASOPHILS ABSOLUTE COUNT (BEAKER) (test 0.10 K/ L 0.01-0.08 ssgc=324) IMMATURE GRANULOCYTES-RELATIVE PERCENT (BEAKER) 1 % 0-1 (test tauf=5002)
[2017-09-08 23:28] LABS: Absolute Lymphocytes (CBC) 2.1 K/uL (0.7-4.9); Absolute Monocytes 0.7 K/uL (0.1-1.3); Absolute Neutrophil 4.1 K/uL (1.8-8.0); Eosinophils % 2.8 % (0-4.4); Hematocrit 37.5 % (39.6-49.0); Lymphocytes % 29.3 % (15.3-44.8); MCH 29.3 pg (27.0-35.0); MCV 88.9 fL (80-100); MPV 9.3 fL (7.6-11.3); Monocytes % 10.3 % (3.3-12.3); RBC Red Blood Cell Count 4.22 M/uL (4.33-5.43)
[2017-09-08 23:30] LABS: Protime INR 1.01
[2017-09-08 23:50] LABS: Potassium 4.1 mmol/L (3.5-5.1)
[2017-09-09 00:26] LABS: Urine Blood TRACE (NEG); Urine Glucose NEGATIVE (NEG); Urine Protein NEGATIVE (NEG); Urine Specific Gravity 1.015 (1.005-1.030)
--- NOTE | 2017-09-09 02:31 | ER ---
Nurse's Notes [facility] Name: Maurice Morfin Age: 67 yrs Sex: Male : 1950 Arrival Date: 09/08/2017 Time: 23:05 Bed 26 Private MD: Diagnosis: Chest pain, unspecified Presentation: 09/08 23:06 Presenting complaint: Patient states: Chest pain started aprox 1 hour ago, pain up to 8 mb3 on 0 to 10 scale. did have nausea but has since resolved. Transition of care: patient was not received from another setting of care. Onset of symptoms was September 08, 2017 at 22:00. Risk Assessment: Do you want to hurt yourself or someone else? Patient reports no desire to harm self or others. Initial Sepsis Screen: Does the patient meet any 2 criteria? No. Patient's initial sepsis screen is negative. Does the patient have a suspected source of infection? No. Patient's initial sepsis screen is negative. Care prior to arrival: None. 23:06 Method Of Arrival: [facility] mb3 23:06 Acuity: WAYLON 3 mb3 Historical: - Allergies: 23:10 NKDA; mb3 - PMHx: 23:10 Cholelithiasis; COPD; CVA; Dementia; enlarged prostate; Hernia; Hypertension; [place]; TIA; mb3 - Immunization history:: Adult Immunizations up to date. - Social history:: Smoking status: Patient uses tobacco products, denies chronic smoking, but will smoke occasionally. - Ebola Screening: : Patient denies travel to an Ebola-affected area in the 21 days before illness onset No symptoms or risks identified at this time. Screenin:54 Abuse screen: Denies threats or abuse. Nutritional screening: No deficits noted. mb3 Tuberculosis screening: No symptoms or risk factors identified. Fall Risk No fall in past 12 months (0 pts). Secondary diagnosis (15 points) IV access (20 points). Ambulatory Aid- Crutches/Cane/Walker (15 pts). Gait- Impaired (20 pts.). Mental Status- Overestimates/Forgets Limitations (15 pts.). Total Gudino Fall Scale indicates High Risk Score (45 or more points). Fall prevention measures have been instituted. Side Rails Up X 2 Placed Close to Nursing Station Frequent Obs/Assessments Occuring Family Present and informed to notify staff if the need to leave the bedside As available patient and family educated on Fall Prevention Program and Strategies. Assessment: 23:31 General: Appears in no apparent distress. comfortable, Behavior is calm, cooperative, mb3 appropriate for age. Pain: Complains of pain in chest Pain does not radiate. Pain currently is 3 out of 10 on a pain scale. Quality of pain is described as squeezing, Pain began 1 hour ago. Neuro: Level of Consciousness is awake, alert, obeys commands, Oriented to person, place, time, situation, Appropriate for age. Cardiovascular: Reports chest pain, nausea, Heart tones present Capillary refill < 3 seconds Patient's skin is warm and dry. Pulses are all present. Respiratory: Airway is patent Respiratory effort is even, unlabored, Respiratory pattern is regular, symmetrical, Breath sounds are clear bilaterally. GI: Abdomen is flat, Bowel sounds present X 4 quads. Abd is soft and non tender Reports nausea. : No signs and/or symptoms were reported regarding the genitourinary system. 09/09 00:03 Reassessment: No changes from previously documented assessment. Patient and/or family mb3 updated on plan of care and expected duration. Pain level reassessed. Patient is alert, oriented x 3, equal unlabored respirations, skin warm/dry/pink. 01:03 Reassessment: Patient and/or family updated on plan of care and expected duration. Pain mb3 level reassessed. Patient is alert, oriented x 3, equal unlabored respirations, skin warm/dry/pink. 02:27 Reassessment: Patient and/or family updated on plan of care and expected duration. Pain mb3 level reassessed. Patient is alert, oriented x 3, equal unlabored respirations, skin warm/dry/pink. Vital Signs: 09/08 23:08 BP 164 / 86; Pulse 60; Resp 21; Temp 98.1(O); Pulse Ox 100% ; Weight 68.04 kg; Height 5 mb3 ft. 9 in. (175.26 cm); Pain 05/15; 09/09 00:02 BP 136 / 81; Pulse 60; Resp 20; Pulse Ox 97% on R/A; mb3 01:03 BP 150 / 78; Pulse 60; Resp 20; Pulse Ox 99% on R/A; mb3 02:27 BP 130 / 81; Pulse 60; Resp 17; Pulse Ox 99% on R/A; mb3 09/08 23:08 Body Mass Index 22.15 (68.04 kg, 175.26 cm) mb3 ED Course: 09/08 23:05 Patient arrived in ED. mb3 23:06 Cameron Alonso MD is Attending Physician. 23:06 Addison Mejia, RN is Primary Nurse. mb3 23:08 Triage completed. mb3 23:17 Inserted saline lock: 22 gauge in left forearm, using aseptic technique. Blood mb3 collected. Patient maintains SpO2 saturation greater than 95% on room air. 23:31 Patient has correct armband on for positive identification. Placed in gown. Bed in low mb3 position. Call light in reach. Side rails up X 1. personnel monitor on. Pulse ox on. NIBP on. 07 00:07 Arm band placed on right wrist. mb3 00:10 X-ray completed. Portable x-ray completed in exam room. Patient tolerated procedure mh1 well. 00:11 XRAY Chest (1 view) In Process Unspecified. EDMS 00:46 Chest Abdomen Pelvis W Cont In Process Unspecified. EDMS 01:29 CT completed. Patient tolerated procedure well. Patient moved to CT via stretcher. Patient moved back from CT. 02:39 No provider procedures requiring assistance completed. IV discontinued, intact, mb3 bleeding controlled, No redness/swelling at site. Pressure dressing applied. Administered Medications: No medications were administered Outcome: 02:31 Discharge ordered by . 02:39 Discharged to home ambulatory, with family. mb3 02:39 Condition: stable 02:39 Discharge instructions given to patient, Instructed on discharge instructions, follow up and referral plans. Demonstrated understanding of instructions, follow-up care. 02:40 Patient left the ED. mb3 Signatures: Dispatcher [employer] EDNY Adela, Osmel Toby [facility] Cameron Alonso MD MD Addison Meija, RN RN mb3
--- NOTE | 2017-09-09 02:31 | EDPHYS ---
Physician Documentation [facility] Name: Maurice Morfin Age: 67 yrs Sex: Male : 1950 Arrival Date: 09/08/2017 Time: 23:05 Bed 26 Private MD: ED Physician Cameron Alonso HPI: 09/09 03:57 This 67 yrs old Male presents to ER via EMS with complaints of Chest Pain > gs 30 y/o. 03:57 The patient or guardian reports chest pain that is located primarily in the anterior gs chest wall. Onset: acutely, 2 hour(s) ago. The pain does not radiate. Associated signs and symptoms: Pertinent negatives: shortness of breath. The chest pain is described as a heaviness, sharp. Duration: The patient or guardian reports multiple episodes, that wax and wane, with no pattern. Modifying factors: The symptoms are alleviated by nothing. the symptoms are aggravated by nothing. Severity of pain: At its worst the pain was moderate in the emergency department the pain has improved markedly. The patient has experienced similar episodes in the past, several times. Historical: - Allergies: 09/08 23:10 NKDA; mb3 - PMHx: 23:10 Cholelithiasis; COPD; CVA; Dementia; enlarged prostate; Hernia; Hypertension; [place]; TIA; mb3 - Immunization history:: Adult Immunizations up to date. - Social history:: Smoking status: Patient uses tobacco products, denies chronic smoking, but will smoke occasionally. - Ebola Screening: : Patient denies travel to an Ebola-affected area in the 21 days before illness onset No symptoms or risks identified at this time. ROS: 09/09 03:57 All other systems are negative. gs Exam: 03:57 Head/Face: Normocephalic, atraumatic. Eyes: Pupils equal round and reactive to light, gs extra-ocular motions intact. Lids and lashes normal. Conjunctiva and sclera are non-icteric and not injected. Cornea within normal limits. Periorbital areas with no swelling, redness, or edema. ENT: Nares patent. No nasal discharge, no septal abnormalities noted. Tympanic membranes are normal and external auditory canals are clear. Oropharynx with no redness, swelling, or masses, exudates, or evidence of obstruction, uvula midline. Mucous membranes moist. Neck: Trachea midline, no thyromegaly or masses palpated, and no cervical lymphadenopathy. Supple, full range of motion without nuchal rigidity, or vertebral point tenderness. No Meningismus. Chest/axilla: Normal chest wall appearance and motion. Nontender with no deformity. No lesions are appreciated. Cardiovascular: Regular rate and rhythm with a normal S1 and S2. No gallops, murmurs, or rubs. Normal PMI, no JVD. No pulse deficits. Respiratory: Lungs have equal breath sounds bilaterally, clear to auscultation and percussion. No rales, rhonchi or wheezes noted. No increased work of breathing, no retractions or nasal flaring. Abdomen/GI: Soft, non-tender, with normal bowel sounds. No distension or tympany. No guarding or rebound. No evidence of tenderness throughout. Back: No spinal tenderness. No costovertebral tenderness. Full range of motion. Skin: Warm, dry with normal turgor. Normal color with no rashes, no lesions, and no evidence of cellulitis. MS/ Extremity: Pulses equal, no cyanosis. Neurovascular intact. Full, normal range of motion. Neuro: Awake and alert, GCS 15, oriented to person, place, time, and situation. Cranial nerves II-XII grossly intact. Motor strength 5/5 in all extremities. Sensory grossly intact. Cerebellar exam normal. Normal gait. 03:57 Constitutional: The patient appears alert, awake. 03:57 ECG was reviewed by the Attending Physician. Vital Signs: 09/08 23:08 BP 164 / 86; Pulse 60; Resp 21; Temp 98.1(O); Pulse Ox 100% ; Weight 68.04 kg; Height 5 mb3 ft. 9 in. (175.26 cm); Pain 05/15; 09/09 00:02 BP 136 / 81; Pulse 60; Resp 20; Pulse Ox 97% on R/A; mb3 01:03 BP 150 / 78; Pulse 60; Resp 20; Pulse Ox 99% on R/A; mb3 02:27 BP 130 / 81; Pulse 60; Resp 17; Pulse Ox 99% on R/A; mb3 09/08 23:08 Body Mass Index 22.15 (68.04 kg, 175.26 cm) mb3 MDM: 09/08 23:36 Patient medically screened. 09/09 03:57 Differential diagnosis: coronary artery disease chest wall pain, thoracic aortic gs disection. Data reviewed: vital signs, nurses notes, old medical records. 03:57 Response to treatment: the patient's symptoms have resolved after treatment, and as a gs result, I will discharge patient. 09/08 23:06 Order name: Basic Metabolic Panel; Complete Time: 00:28 09/08 23:06 Order name: CBC with Diff; Complete Time: 00:28 09/08 23:06 Order name: NT PRO-BNP; Complete Time: 00:28 09/08 23:06 Order name: PT-INR; Complete Time: 00:28 09/08 23:06 Order name: Troponin (emerg Dept Use Only); Complete Time: 00:28 09/08 23:51 Order name: Urine Dipstick--Ancillary (enter results); Complete Time: 00:28 09/08 23:06 Order name: XRAY Chest (1 view) 09/08 23:06 Order name: EKG; Complete Time: 23:07 09/08 23:06 Order name: Cardiac monitoring; Complete Time: 23:30 09/08 23:06 Order name: EKG - Nurse/Tech; Complete Time: 23:30 09/08 23:06 Order name: IV Saline Lock; Complete Time: 23:30 09/09 00:44 Order name: Chest Abdomen Pelvis W Cont EDMS 09/08 23:06 Order name: Labs collected and sent; Complete Time: 23:30 09/08 23:06 Order name: O2 Per Protocol; Complete Time: 23:30 09/08 23:06 Order name: O2 Sat Monitoring; Complete Time: 23:30 09/08 23:06 Order name: Urine Dipstick-Ancillary (obtain specimen); Complete Time: 23:50 gs EC:57 Rate is 60 beats/min. Rhythm is regular. VT interval is prolonged. QRS interval is gs normal. QT interval is normal. T waves are Flattened. Clinical impression: NSR w/ Non-specific ST/T Changes. Interpreted by me. Administered Medications: No medications were administered Disposition: 09/09/17 02:31 Discharged to Home. Impression: Chest pain, unspecified. - Condition is Stable. - Discharge Instructions: Nonspecific Chest Pain. - Medication Reconciliation Form, Thank You Letter, Antibiotic Education, Prescription Opioid Use form. - Follow up: Private Physician; When: 2 - 3 days; Reason: Re-evaluation by your physician. Signatures: Dispatcher [employer] [facility] [place] Cameron Alonso MD MD Addison Mejia, RN RN mb3 Corrections: (The following items were deleted from the chart) 00:44 00:30 Chest Abdomen W/ Con+CT.RAD.BRZ ordered. [facility] 02:40 02:31 09/09/2017 02:31 Discharged to Home. Impression: Chest pain, unspecified. mb3 Condition is Stable. Forms are Medication Reconciliation Form, Thank You Letter, Antibiotic Education, Prescription Opioid Use. Follow up: Private Physician; When: 2 - 3 days; Reason: Re-evaluation by your physician. kalin
[2017-09-09 02:44] VITALS: TEMP 98.1
[2017-09-09 02:46] VITALS: O2SAT 99
[2017-09-09 02:47] VITALS: BP 130/81
--- NOTE | 2017-09-09 06:29 | EKG ---
Test Date: 2017-09-08 Test Time: 23:25:32 Certified Indoor Environmentalist: MB MEASUREMENT RESULTS: Intervals: Rate: 60 MN: 204 QRSD: 76 QT: 380 QTc: 380 [place]: P: -15 MN: 204 QRS: 8 T: 79 INTERPRETIVE STATEMENTS: Atrial-paced rhythm Abnormal ECG Compared to ECG 08/11/2017 15:27:12 ST (T wave) deviation no longer present Electronically Signed On 09-09-17 06:29:02 CDT by Epifanio Gonzalez
--- NOTE | 2017-09-09 08:59 | RAD REPORT ---
EXAM DESCRIPTION: CT - Chest Abdomen Pelvis W Cont - 09/09/2017 3:03 am CLINICAL HISTORY: Chest and abdominal pain COMPARISON: CT May 2016 TECHNIQUE: Computed axial tomography of the chest, abdomen and pelvis was obtained. 100 cc Isovue-30 0 was administered intravenously. Oral contrast was given. A preliminary report was generated by Virtual View App and reviewed prior to this dictation All CT scans are performed using dose optimization technique as appropriate and may include automated exposure control or mA/KV adjustment according to patient size. FINDINGS: A pleural effusion is not present. A pericardial effusion is not present. Paraseptal emphysema is present. Upper lobe scarring is unchanged. A lung consolidation is not seen. A mediastinal hematoma is not present. The liver, spleen, pancreas, and adrenals appear unremarkable. Tiny nonobstructing renal calculi are noted. The gallbladder has been removed. The appendix is normal. There is no evidence of diverticulitis. A femoral to femoral shunt is present. Right iliac stent is in place. 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
--- NOTE | 2017-09-09 09:00 | RAD REPORT ---
EXAM DESCRIPTION: [place]illa Single View09/09/2017 12:11 am CLINICAL HISTORY: Chest pain COMPARISON: August 11, 2017 FINDINGS: The lungs are mildly to moderately hyperaerated. The lungs appear clear of acute infiltra te. The heart is normal size. Pacemaker leads are in place. IMPRESSION: COPD without visualization acute abnormality
== END 2017-09-09 02:40 | disposition home or self-care (01) ==
LOC: ER 22:59
DX: R07.9 Chest pain, unspecified (principal); I10 Essential (primary) hypertension; Z72.0 Tobacco use
CPT/HCPCS: 36415; 71045; 71260; 74177; 80048; 81003; 83880; 84484; 85025; 85610; 93005; 99285; Q9967

== ENCOUNTER 2017-09-30 14:10 | Emergency (ER) | payer OTHER ==
--- OUTSIDE RECORDS SUMMARY | 2017-09-30 14:14 | XMS REPORT | Clinical Summary ---
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 01/10/2016 PAD (peripheral artery disease) [...] ([facility]);Tobacco abuse;Tobacco abuse counseling after 09/29/2016 Social History Tobacco Use Types Packs/Day Years Used Date Current Every Day Smoker Cigarettes 0.5 50 Smokeless Tobacco: Never Used Tobacco Cessation: Ready to Quit: No; Counseling Given: No Comments: 5-6 cigarettes a day Alcohol Use Drinks/Week oz/Week Comments No Sex Assigned at Date Recorded Not on file Last Filed Vital Signs Vital Sign Reading Time Taken Blood Pressure 119/65 03/14/2017 7:15 AM [employer] [facility] Pulse 60 03/14/2017 7:15 AM [employer] Temperature 35.8 C (96.4 F) 03/14/2017 7:15 AM [employer] Respiratory Rate 17 03/14/2017 7:15 AM [employer] [facility] Oxygen Saturation 96% 03/14/2017 7:15 AM [employer] Inhaled Oxygen Concentration - - Weight 70.4 kg (155 lb 3.3 oz) 03/11/2017 11:00 PM [employer] Height 172.7 cm (5' 8") 03/11/2017 11:00 PM [employer] Body Mass Index 23.6 03/11/2017 11:00 PM [employer] Plan of Treatment Health Maintenance Due Date Last Done Comments INFLUENZA VACCINE 12/06/2017 Implants Implanted Type Area [employer] P[employer] Inspector Device Expiration Model / Identifier Date Serial / Lot Grft Eptfe-Heparin Rng [id number] - [id number] Graft/Pa N/A: MARIELENA PEREZE & 09/01/2019 [id number] / Implanted: Qty: 1 on 01/13/2016 by Oniel Smith MD [facility] [id number] / Results ARRYTHMIA IMPLANT REPORT - SCAN [...] - 1 % Specimen Performing Laboratory Blood [address] [address] CBC with platelet count + automated diff (03/14/2017 4:53 AM)Only the most recent of4 resultswithin the time period is included. Specimen Performing Laboratory Blood Narrative The following orders were created for panel order CBC with platelet count + automated diff. Procedure Abnormality Status --------- ------ CBC with platelet count ...[[id number]]AbnormalFinal result Please view results for these tests [...] PATIENTS. Specimen Performing Laboratory Blood [facility] [address] [address] ECHOCARDIOGRAM REPORT - SCAN (03/12/2017 4:57 PM)CT [...] MD Report Verified Date/Time:03/12/2017 15:31:17 Reading Location: [address] Neuro Reading Room Procedure Note Interface, External Ris In - 03/12/2017 3:33 PM [employer] FINAL REPORT CT head without contrast 03/12/2017 [...] Report Verified Date/Time: 03/12/2017 15:31:17 Reading Location: [facility] C013V Neuro Reading Room Troponin I (03/12/2017 2:28 PM)Only the most recent of3 resultswithin the time period is included. Component Value Ref Range Troponin I 0.02 0.00 - 0.03 ng/mL Specimen Performing Laboratory Blood - Arm, [place] [address] Narrative Troponin I (TnI) levels must be [...] 414 ms QTC Calculation(Bazett) 414 ms P Aydlett -18 degrees R Aydlett 9 degrees T Aydlett 68 degrees Electronic atrial pacemaker ST abnormality, possible digitalis effect Abnormal ECG No previous ECGs available Confirmed by Jasmeet HAIDER MICHAEL ([id number]) on 03/13/2017 9:39:18 AM Procedure Note Interface, External Ris In - 03/13/2017 9:39 AM [employer] Ventricular Rate 60 BPM Atrial Rate 60 BPM P-R Interval 138 ms QRS Duration 74 ms Q-T Interval 414 ms QTC Calculation(Bazett) 414 ms P Aydlett -18 degrees R Aydlett 9 degrees T Aydlett 68 degrees Electronic atrial pacemaker ST abnormality, possible digitalis effect Abnormal ECG No previous ECGs available Confirmed by Jasmeet HAIDER MICHAEL ([id number]) on 03/13/2017 9:39:18 AM 2D Echo W/Doppler(CW/PW/Color) (03/12/2017 10:53 AM) Component Value Ref Range Ejection Fraction Specimen Performing Laboratory [facility] ECHO [facility]ACS Narrative Transthoracic Echocardiography Report (TTE) Demographics Patient Name Tyron PENA of Study 03/12/2017 [id number] GenderMale Visit Number [id number] Chuck [id number] Number [id number] Number Date of Birth1950 Referring Physician Corbin Garcia Age67 year(s) Flyer Maker Kristopher Muniz MD Physician Fellow CHLOE Melton Procedure Type of Study TTE procedure:2DECHO W DOPPLER(CW/PW/COLOR) Indications:Stroke . Clinical History COPD,CVA,DEMENTIA,ENLARGED PROSTATE,HERNIA CEREBRI,HTN,VA,SMOKING Height: 68 inches Weight: 70.31 kg (155 [...] External Ris In - 03/12/2017 4:15 PM [employer] Transthoracic Echocardiography Report (TTE) Demographics Patient Name MAMI PENA Date of Study 03/12/2017 Gender Male Visit Number [id number] Race Room Number [id number] Number Date of 1950 Referring Physician Corbin Garcia Age 67 year(s) Flyer Maker Kristopher Engle Interpreting Prosper Muniz MD Physician Fellow CHLOE Melton Procedure Type of Study TTE procedure:2DECHO W DOPPLER(CW/PW/COLOR) Indications:Stroke . Clinical History COPD,CVA,DEMENTIA,ENLARGED PROSTATE,HERNIA CEREBRI,HTN,VA,SMOKING Height: 68 inches Weight: 70.31 kg (155 [...] MD Report Verified Date/Time:03/12/2017 10:06:57 Reading Location: [facility] Radiology Reading Room Procedure Note Interface, External Ris In - 03/12/2017 10:09 AM [employer] FINAL REPORT Two frontal chest images Discussion: [...] Report Verified Date/Time: 03/12/2017 10:06:57 Reading Location: [facility] Radiology Reading Room PHERAL VASCULAR REPORT - SCAN (03/12/2017 8:20 AM)Homocysteine - Fasting ( 03/12/2017 8:13 AM) Component Value Ref Range Homocysteine 11.8 5.1 - 15.4 umol/L Specimen Performing Laboratory Blood - [place], [address] [address] Narrative Fasting Hemoglobin A1c - Fasting (03/12/2017 8:13 AM) Component Value Ref Range Hemoglobin A1C 5.6 4.3 - 6.1 % Specimen Performing Laboratory Blood - [place], [address] [address] Narrative Fasting Creatine Kinase (CK), Total and MB (03/12/2017 8:13 AM)Only the most recent of2 resultswithin the time period is included. Component Value Ref Range Total CK 59 29 - 200 U/L CK-MB 1.0 0.0 - 6.6 ng/mL MB Relative Index 1.7 % Specimen Performing Laboratory Blood - [place], [address] [address] Narrative CK-MB Reference Range: <6.7Normal 6.7-10.0Borderline >10.0 Abnormal Fasting Fasting Fasting lipid panel (03/12/2017 8:13 AM) Component Value Ref Range Triglycerides 151 mg/dL Cholesterol 147 mg/dL HDL 29 mg/dL LDL Calculated 88 mg/dL Specimen Performing Laboratory Blood - [place], [address] [address] Narrative Triglyceride Reference Range: Low Risk <150 [id number] High Risk 200-499 Very High Risk>=500 Cholesterol Reference Range: Low Risk <200 [id number] High Risk>240 HDL Cholesterol Reference Range: Low Risk >=60 High Risk <40 LDL Cholesterol Reference Range: Optimal<100 Near [id number] [id number] Very High >=190 Fasting Carotid doppler bilateral (03/12/2017 6:19 AM) Component Value Ref Range Ejection Fraction Specimen Performing Laboratory [facility]CHO [facility]ART[facility] Impressions Right Impression 1. There is [...] Demographics Patient Name JEAN,Date of Study2017 RADHA [id number] Age67 Visit Number [id number] Gender Male Accession Number [id number] Date of Birth1950 [facility] Room [id number] Physician Elaine Garcia MD, RPVI Procedure Type of Study: Cerebral: Carotid, CAROTID DOPPLER, BILATERAL. Indications for Study:Stroke. Blood Pressure:Right arm 116/68 mmHg.Left arm 123/73 mmHg. Patient Status:Routine. Study Location:Portable. Technical Quality:Adequate visualization. Risk Factors History of Disease + + +--------+ !Diagnosis !Date!Comments! + + +--------+ !History/Risk Factors: !03/12/2017!Stroke! + + +--------+ Procedure Note Interface, External Ris In - 03/12/2017 7:32 AM [facility] [employer] [facility] - Carotid Duplex Study Demographics Patient Name JEAN, Date of Study 03/12/2017 RADHA Age 67 Visit Number [id number] Gender Male Accession Number [id number] Date of 1950 Referring Corbin Garcia Room Number 7518 Physician Flyer Maker Vangie Plaza Interpreting Critsobal Perez T Physician , RPVI Procedure Type [...] ng/mL Specimen Performing Laboratory Blood - [place], [address] [address] TSH/Free T4 If Indicated (03/11/2017 11:41 PM) Component Value Ref Range TSH 2.01 0.35 - 4.94 uIU/mL Specimen Performing Laboratory Blood - [place], [address] [address] Prothrombin time/INR (03/11/2017 11:41 PM) Component Value Ref Range Protime 17.2 (H) 11.7 - 14.7 seconds INR 1.4 <=5.9 Specimen Performing Laboratory Blood - [place], [address] [address] Narrative RECOMMENDED COUMADIN/WARFARIN INR THERAPY RANGES STANDARD DOSE: 2.0 - 3.0 Includes: PROPHYLAXIS for venous thrombosis, systemic embolization; TREATMENT for venous thrombosis and/or pulmonary embolus. HIGH RISK: Target INR is 2.5-3.5 for patients with mechanical heart valves. after 09/29/2016
--- OUTSIDE RECORDS SUMMARY | 2017-09-30 14:14 | XMS REPORT ---
:1950 Demographics Address [address] [place] [address] Preferred Language Unknown Marital Status Unknown [employer] Affiliation Unknown Race Unknown Additional Race(s) Unavailable Ethnic Group Unknown Author [facility] Address [address] [place] [address] [place] [id number] Care Team Providers Name Role Phone MECCA [...] Comments SODIUM (BEAKER) (test 136 meq/L 136-145 losj=825) POTASSIUM (BEAKER) (test 4.0 meq/L 3.5-5.1 bcxh=299) CHLORIDE (BEAKER) (test 106 meq/L 98-107 xdar=184) CO2 (BEAKER) (test kogo=779) 23 meq/L 22-29 BLOOD UREA NITROGEN (BEAKER) 15 mg/dL 7-21 (test jujh=943) CREATININE (BEAKER) (test 0.92 mg/dL 0.57-1.25 sqpa=128) GLUCOSE RANDOM (BEAKER) 92 mg/dL 70-105 (test qyjd=469) CALCIUM (BEAKER) (test 8.7 mg/dL 8.4-10.2 uzes=721) EGFR (BEAKER) (test 82 mL/min/1.73 sq m ESTIMATED GFR IS NOT ifsj=4532) ACCURATE CREATININE CLEARANCE IN PREDICTING GLOMERULAR FILTRATION RATE. ESTIMATED GFR IS NOT APPLICABLE FOR DIALYSIS PATIENTS. CBC W/PLT COUNT & AUTO [id number] 05:55:00 Test Item Value Reference Range Comments WHITE BLOOD CELL COUNT (BEAKER) (test pndh=140) 5.9 K/ L 3.5-10.5 RED BLOOD CELL COUNT (BEAKER) (test dzqu=478) 4.25 M/ L 4.63-6.08 HEMOGLOBIN (BEAKER) (test fxtw=829) 12.3 GM/DL 13.7-17.5 HEMATOCRIT (BEAKER) (test cchr=010) 37.8 % 40.1-51.0 MEAN CORPUSCULAR VOLUME (BEAKER) (test xvxr=556) 88.9 fL 79.0-92.2 MEAN CORPUSCULAR HEMOGLOBIN (BEAKER) (test 28.9 pg 25.7-32.2 sduu=523) MEAN CORPUSCULAR HEMOGLOBIN CONC (BEAKER) (test 32.5 GM/DL 32.3-36.5 ftix=469) RED CELL DISTRIBUTION WIDTH (BEAKER) (test 15.9 % 11.6-14.4 rkwm=032) PLATELET COUNT (BEAKER) (test tzqq=388) 173 K/CU MM 150-450 MEAN PLATELET VOLUME (BEAKER) (test gvtb=435) 11.5 fL 9.4-12.4 NUCLEATED RED BLOOD CELLS (BEAKER) (test 0 /100 WBC 0-0 inji=434) NEUTROPHILS RELATIVE PERCENT (BEAKER) (test 48 % iqbb=330) LYMPHOCYTES RELATIVE PERCENT (BEAKER) (test 34 % enft=203) MONOCYTES RELATIVE PERCENT (BEAKER) (test 12 % lady=982) EOSINOPHILS RELATIVE PERCENT (BEAKER) (test 4 % uhuz=637) BASOPHILS RELATIVE PERCENT (BEAKER) (test 2 % yvyy=566) NEUTROPHILS ABSOLUTE COUNT (BEAKER) (test 2.85 K/ L 1.78-5.38 eeux=019) LYMPHOCYTES ABSOLUTE COUNT (BEAKER) (test 2.02 K/ L 1.32-3.57 gerz=533) MONOCYTES ABSOLUTE COUNT (BEAKER) (test 0.68 K/ L 0.30-0.82 nwcl=667) EOSINOPHILS ABSOLUTE COUNT (BEAKER) (test 0.25 K/ L 0.04-0.54 izrw=267) BASOPHILS ABSOLUTE COUNT (BEAKER) (test 0.09 K/ L 0.01-0.08 tikb=802) IMMATURE GRANULOCYTES-RELATIVE PERCENT (BEAKER) 1 % 0-1 (test mhgf=3767) CBC W/PLT COUNT & AUTO [id number] 05:15:00 Test Item Value Reference Range Comments WHITE BLOOD CELL COUNT (BEAKER) (test otfp=937) 5.4 K/ L 3.5-10.5 RED BLOOD CELL COUNT (BEAKER) (test ydfv=430) 4.34 M/ L 4.63-6.08 HEMOGLOBIN (BEAKER) (test gfso=523) 12.5 GM/DL 13.7-17.5 HEMATOCRIT (BEAKER) (test cyxo=992) 39.0 % 40.1-51.0 MEAN CORPUSCULAR VOLUME (BEAKER) (test nfro=049) 89.9 fL 79.0-92.2 MEAN CORPUSCULAR HEMOGLOBIN (BEAKER) (test 28.8 pg 25.7-32.2 cnex=268) MEAN CORPUSCULAR HEMOGLOBIN CONC (BEAKER) (test 32.1 GM/DL 32.3-36.5 socp=204) RED CELL DISTRIBUTION WIDTH (BEAKER) (test 15.9 % 11.6-14.4 udvo=561) PLATELET COUNT (BEAKER) (test lafa=910) 162 K/CU MM 150-450 MEAN PLATELET VOLUME (BEAKER) (test ynkn=790) 10.6 fL 9.4-12.4 NUCLEATED RED BLOOD CELLS (BEAKER) (test 0 /100 WBC 0-0 wump=719) NEUTROPHILS RELATIVE PERCENT (BEAKER) (test 52 % ynmi=826) LYMPHOCYTES RELATIVE PERCENT (BEAKER) (test 31 % mvoy=432) MONOCYTES RELATIVE PERCENT (BEAKER) (test 11 % pkqj=390) EOSINOPHILS RELATIVE PERCENT (BEAKER) (test 4 % gagt=631) BASOPHILS RELATIVE PERCENT (BEAKER) (test 2 % nffr=653) NEUTROPHILS ABSOLUTE COUNT (BEAKER) (test 2.78 K/ L 1.78-5.38 dssg=398) LYMPHOCYTES ABSOLUTE COUNT (BEAKER) (test 1.69 K/ L 1.32-3.57 tkgu=097) MONOCYTES ABSOLUTE COUNT (BEAKER) (test 0.59 K/ L 0.30-0.82 bkee=699) EOSINOPHILS ABSOLUTE COUNT (BEAKER) (test 0.21 K/ L 0.04-0.54 prwk=552) BASOPHILS ABSOLUTE COUNT (BEAKER) (test 0.09 K/ L 0.01-0.08 bstu=513) IMMATURE GRANULOCYTES-RELATIVE PERCENT (BEAKER) 1 % 0-1 (test avhw=7801) CT, BRAIN, WITHOUT [id number] 15:31:00FINAL REPORT CT head without contrast 03/12/2017 [...] Paez Verified Date/Time: 03/12/2017 15:31:17 Reading Location: [address] Neuro Reading Room TROPONIN [id number] 15:26:00 Test Item Value Reference Range Comments TROPONIN I (KYARA) (test alfk=339) 0.02 ng/mL 0.00-0.03 Troponin I (TnI) levels [...] acidosis, acute neurological disease, and persistent tachyarrhythmia.HEMOGLOBIN [id number] 12:38:00 Test Item Value Reference Range Comments HEMOGLOBIN A1C (KYARA) (test dzyo=232) 5.6 % 4.3-6.1 FastingRAD, CHEST, 1 VIEW, NON [id number] 10:06:00Reason for exam:->rule out pneumoniaShould this be [...] Benites Verified Date/Time: 03/12/2017 10:06:57 Reading Location: [facility] Radiology Reading Room [id number] 09:08:00 Test Item Value Reference Range Comments HOMOCYSTEINE (BEAKER) (test bqsm=437) 11.8 umol/L 5.1-15.4 FastingCREATINE KINASE (CK), TOTAL AND [id number] 08:55:00 Test Item Value Reference Range Comments CREATINE KINASE TOTAL (BEAKER) (test dedy=402) 59 U/L 29-200 CREATINE KINASE-MB (BEAKER) (test clnx=650) 1.0 ng/mL 0.0-6.6 CREATINE KINASE-MB INDEX (BEAKER) (test abiy=480) 1.7 % CK-MB Reference Range:<6.7 Normal6.7-10.0 Borderline>10.0 AbnormalFastingFastingTROPONIN [id number] 08:55:00 Test Item Value Reference Range Comments TROPONIN I (BEAKER) (test mvcs=202) < ng/mL 0.00-0.03 Troponin I (TnI) levels [...] acidosis, acute neurological disease, and persistent tachyarrhythmia.FastingLIPID [id number] 08:48:00 Test Item Value Reference Range Comments TRIGLYCERIDES (BEAKER) (test wkad=471) 151 mg/dL CHOLESTEROL (BEAKER) (test ftct=499) 147 mg/dL HDL CHOLESTEROL (BEAKER) (test dnif=495) 29 mg/dL LDL CHOLESTEROL CALCULATED (BEAKER) (test 88 mg/dL mxrn=361) Triglyceride Reference Range: Low Risk <150 Borderline 150- 199 High Risk 200-499 Very High Risk >=500Cholesterol Reference Range: Low Risk <200 Borderline 200-239 High Risk > 240HDL Cholesterol Reference Range: Low Risk >=60 High Risk <40LDL Cholesterol Reference Range: Optimal <100 Near Optimal 100-129 Borderline 130-159 High 160-189 Very High >=190 FastingBASIC METABOLIC [id number] 08:48:00 Test Item Value Reference Range Comments SODIUM (BEAKER) (test 136 meq/L 136-145 netq=526) POTASSIUM (BEAKER) (test 4.4 meq/L 3.5-5.1 jacw=375) CHLORIDE (BEAKER) (test 104 meq/L 98-107 zysm=970) CO2 (BEAKER) (test 25 meq/L 22-29 snxl=004) BLOOD UREA NITROGEN 15 mg/dL 7-21 (BEAKER) (test tfpx=018) CREATININE (BEAKER) (test 0.87 mg/dL 0.57-1.25 cpao=192) GLUCOSE RANDOM (BEAKER) 102 mg/dL 70-105 (test czsg=954) CALCIUM (BEAKER) (test 8.9 mg/dL 8.4-10.2 ahsq=409) EGFR (BEAKER) (test 87 mL/min/1.73 sq m ESTIMATED GFR IS NOT ofxs=0623) ACCURATE CREATININE CLEARANCE IN PREDICTING GLOMERULAR FILTRATION RATE. ESTIMATED GFR IS NOT APPLICABLE FOR DIALYSIS PATIENTS. FastingCBC W/PLT COUNT & AUTO [id number] 08:24:00 Test Item Value Reference Range Comments WHITE BLOOD CELL COUNT (BEAKER) (test ohte=225) 5.7 K/ L 3.5-10.5 RED BLOOD CELL COUNT (BEAKER) (test kbuh=326) 4.23 M/ L 4.63-6.08 HEMOGLOBIN (BEAKER) (test ohnu=102) 12.3 GM/DL 13.7-17.5 HEMATOCRIT (BEAKER) (test advu=873) 37.9 % 40.1-51.0 MEAN CORPUSCULAR VOLUME (BEAKER) (test ffxp=320) 89.6 fL 79.0-92.2 MEAN CORPUSCULAR HEMOGLOBIN (BEAKER) (test 29.1 pg 25.7-32.2 zxsi=599) MEAN CORPUSCULAR HEMOGLOBIN CONC (BEAKER) (test 32.5 GM/DL 32.3-36.5 oicj=983) RED CELL DISTRIBUTION WIDTH (BEAKER) (test 15.9 % 11.6-14.4 qfmu=221) PLATELET COUNT (BEAKER) (test koih=565) 156 K/CU MM 150-450 MEAN PLATELET VOLUME (BEAKER) (test uqcl=005) 10.2 fL 9.4-12.4 NUCLEATED RED BLOOD CELLS (BEAKER) (test 0 /100 WBC 0-0 vmbg=940) NEUTROPHILS RELATIVE PERCENT (BEAKER) (test 47 % ellw=718) LYMPHOCYTES RELATIVE PERCENT (BEAKER) (test 37 % acvw=473) MONOCYTES RELATIVE PERCENT (BEAKER) (test 12 % dult=772) EOSINOPHILS RELATIVE PERCENT (BEAKER) (test 3 % ogqh=323) BASOPHILS RELATIVE PERCENT (BEAKER) (test 2 % vurk=946) NEUTROPHILS ABSOLUTE COUNT (BEAKER) (test 2.66 K/ L 1.78-5.38 ddfv=017) LYMPHOCYTES ABSOLUTE COUNT (BEAKER) (test 2.09 K/ L 1.32-3.57 bvbz=517) MONOCYTES ABSOLUTE COUNT (BEAKER) (test 0.70 K/ L 0.30-0.82 ukri=882) EOSINOPHILS ABSOLUTE COUNT (BEAKER) (test 0.15 K/ L 0.04-0.54 knyi=067) BASOPHILS ABSOLUTE COUNT (BEAKER) (test 0.09 K/ L 0.01-0.08 buvv=754) IMMATURE GRANULOCYTES-RELATIVE PERCENT (BEAKER) 1 % 0-1 (test bvhc=9002) TSH/FREE T4 IF [id number] 03:38:00 Test Item Value Reference Range Comments THYROID STIMULATING HORMONE (BEAKER) (test 2.01 uIU/mL 0.35-4.94 xwjb=686) VITAMIN B12 AND [id number] 03:38:00 Test Item Value Reference Range Comments VITAMIN B12 (BEAKER) (test wnmy=717) 1008 pg/mL 213-816 FOLATE (BEAKER) (test hiwt=031) 8.4 ng/mL >=7.0 CREATINE KINASE (CK), TOTAL AND [id number] 01:03:00 Test Item Value Reference Range Comments CREATINE KINASE TOTAL (BEAKER) (test vmdp=879) 66 U/L 29-200 CREATINE KINASE-MB (BEAKER) (test logz=064) 1.4 ng/mL 0.0-6.6 CREATINE KINASE-MB INDEX (BEAKER) (test ydnv=519) 2.1 % CK-MB Reference Range:<6.7 Normal6.7-10.0 Borderline>10.0 AbnormalTROPONIN [id number] 01:03:00 Test Item Value Reference Range Comments TROPONIN I (BEAKER) (test nrof=568) 0.02 ng/mL 0.00-0.03 Troponin I (TnI) levels [...] acute neurological disease, and persistent tachyarrhythmia.BASIC METABOLIC [id number] 00:56:00 Test Item Value Reference Range Comments SODIUM (BEAKER) (test 136 meq/L 136-145 hzlo=641) POTASSIUM (BEAKER) (test 3.9 meq/L 3.5-5.1 rucb=280) CHLORIDE (BEAKER) (test 104 meq/L 98-107 dvux=800) CO2 (BEAKER) (test 24 meq/L 22-29 hose=163) BLOOD UREA NITROGEN 14 mg/dL 7-21 (BEAKER) (test igqe=175) CREATININE (BEAKER) (test 0.87 mg/dL 0.57-1.25 jcpn=917) GLUCOSE RANDOM (BEAKER) 104 mg/dL 70-105 (test qyvn=840) CALCIUM (BEAKER) (test 9.2 mg/dL 8.4-10.2 toat=314) EGFR (BEAKER) (test 87 mL/min/1.73 sq m ESTIMATED GFR IS NOT pmsa=2211) ACCURATE CREATININE CLEARANCE IN PREDICTING GLOMERULAR FILTRATION RATE. ESTIMATED GFR IS NOT APPLICABLE FOR DIALYSIS PATIENTS. PROTHROMBIN [id number] 00:27:00 Test Item Value Reference Range Comments PROTIME (BEAKER) (test lcoy=069) 17.2 seconds 11.7-14.7 INR (BEAKER) (test xjqd=092) 1.4 <=5.9 RECOMMENDED COUMADIN/WARFARIN INR THERAPY RANGESSTANDARD DOSE: 2.0 - 3.0 Includes: PROPHYLAXIS forvenous thrombosis, systemic embolization; TREATMENT for venous thrombosis and/or pulmonary embolus.HIGH RISK: Target INR is 2.5-3.5 for patients with mechanical heart valves.CBC W/PLT COUNT & AUTO [id number] 00:01:00 Test Item Value Reference Range Comments WHITE BLOOD CELL COUNT (BEAKER) (test trni=314) 8.2 K/ L 3.5-10.5 RED BLOOD CELL COUNT (BEAKER) (test oftr=465) 4.57 M/ L 4.63-6.08 HEMOGLOBIN (BEAKER) (test djea=783) 13.2 GM/DL 13.7-17.5 HEMATOCRIT (BEAKER) (test uqup=287) 40.5 % 40.1-51.0 MEAN CORPUSCULAR VOLUME (BEAKER) (test lkwm=885) 88.6 fL 79.0-92.2 MEAN CORPUSCULAR HEMOGLOBIN (BEAKER) (test 28.9 pg 25.7-32.2 acwa=111) MEAN CORPUSCULAR HEMOGLOBIN CONC (BEAKER) (test 32.6 GM/DL 32.3-36.5 wwyy=027) RED CELL DISTRIBUTION WIDTH (BEAKER) (test 15.9 % 11.6-14.4 ojcf=830) PLATELET COUNT (BEAKER) (test vxcx=478) 198 K/CU MM 150-450 MEAN PLATELET VOLUME (BEAKER) (test jloe=278) 11.2 fL 9.4-12.4 NUCLEATED RED BLOOD CELLS (BEAKER) (test 0 /100 WBC 0-0 hljj=256) NEUTROPHILS RELATIVE PERCENT (BEAKER) (test 57 % iqkt=203) LYMPHOCYTES RELATIVE PERCENT (BEAKER) (test 28 % fszt=364) MONOCYTES RELATIVE PERCENT (BEAKER) (test 10 % jfxi=649) EOSINOPHILS RELATIVE PERCENT (BEAKER) (test 3 % avug=482) BASOPHILS RELATIVE PERCENT (BEAKER) (test 1 % tpkp=575) NEUTROPHILS ABSOLUTE COUNT (BEAKER) (test 4.66 K/ L 1.78-5.38 dsab=601) LYMPHOCYTES ABSOLUTE COUNT (BEAKER) (test 2.29 K/ L 1.32-3.57 blcc=218) MONOCYTES ABSOLUTE COUNT (BEAKER) (test 0.81 K/ L 0.30-0.82 idwh=886) EOSINOPHILS ABSOLUTE COUNT (BEAKER) (test 0.25 K/ L 0.04-0.54 uivn=412) BASOPHILS ABSOLUTE COUNT (BEAKER) (test 0.10 K/ L 0.01-0.08 govt=680) IMMATURE GRANULOCYTES-RELATIVE PERCENT (BEAKER) 1 % 0-1 (test zwhn=7533)
[2017-09-30] MEDS ORDERED: ONDANSETRON 4 MG/2 ML VIAL ONE ×2 (14:59→15:42)
[2017-09-30] MEDS ORDERED: NA CHLORIDE 0.9% 1,000 ML ONE (14:59)
[2017-09-30] MEDS ORDERED: MORPHINE 4 MG/ML SYR ONE (15:11)
[2017-09-30 15:14] LABS: Absolute Lymphocytes (CBC) 1.7 K/uL (0.7-4.9); Absolute Monocytes 0.6 K/uL (0.1-1.3); Absolute Neutrophil 3.9 K/uL (1.8-8.0); Eosinophils % 2.2 % (0-4.4); Lymphocytes % 26.4 % (15.3-44.8); MCH 30.2 pg (27.0-35.0); MCV 87.5 fL (80-100); MPV 9.2 fL (7.6-11.3); Monocytes % 9.5 % (3.3-12.3); RBC Red Blood Cell Count 4.12 M/uL (4.33-5.43)
[2017-09-30 15:17] LABS: Protime INR 1.13
--- NOTE | 2017-09-30 15:28 | RAD REPORT ---
EXAM DESCRIPTION: RAD - Chest Single View - 09/30/2017 3:18 pm CLINICAL HISTORY: Chest pain, hypertension COMPARISON: September 08 TECHNIQUE: AP portable chest image was obtained 1514 hours . FINDINGS: Lungs are fibrotic as a baseline. No focal mass, consolidation or failure finding. The int erstitial fibrotic pattern is stable. Left subclavian pacemaker remains in place. Heart and vasculatu re are normal. No measurable pleural effusion and no pneumothorax. No gross bony abnormality seen. No acute aortic findings suspected. IMPRESSION: Fibrotic lung pattern similar to comparison. No acute findings.
[2017-09-30 15:38] LABS: ALT/SGPT 16 U/L (12-78); AST/SGOT 17 U/L (15-37); Albumin 3.3 g/dL (3.4-5.0); Alkaline Phosphatase 129 U/L (45-117); BUN Blood Urea Nitrogen 9 mg/dL (7-18); Bicarbonate 27 mmol/L (21-32); Bilirubin Direct 0.1 mg/dL (0-0.2); Bilirubin Total 0.4 mg/dL (0.2-1.0); CKMB Creatine Kinase MB < 1.0 ng/mL (0.3-3.6); Creatine Phosphokinase 75 U/L (39-308); Glucose Level 131 mg/dL (74-106); Magnesium 2.1 mg/dL (1.8-2.4); NT PRO-BNP 328 pg/mL (<125); Protein, Total 7.2 g/dL (6.4-8.2); Sodium Level 137 mmol/L (136-145)
--- NOTE | 2017-09-30 16:57 | ER ---
Nurse's Notes [facility] Name: Maurice Morfin Age: 67 yrs Sex: Male : 1950 Arrival Date: 09/30/2017 Time: 14:13 Bed 17 Private MD: Yung Thomas Diagnosis: Chest pain, unspecified Presentation: 09/30 14:18 Presenting complaint: Patient states: my BP went up to 170/68; my chest started hurting hj where my pacemaker is at; pain moves to my L shoulder; reports nausea; reports SOB:. Transition of care: patient was not received from another setting of care. Onset of symptoms was September 30, 2017. Risk Assessment: Do you want to hurt yourself or someone else? Patient reports no desire to harm self or others. Initial Sepsis Screen: Does the patient meet any 2 criteria? No. Patient's initial sepsis screen is negative. Does the patient have a suspected source of infection? No. Patient's initial sepsis screen is negative. Care prior to arrival: None. 14:18 Method Of Arrival: Ambulatory 14:18 Acuity: WAYLON 3 hj Triage Assessment: 14:23 General: Appears in no apparent distress. uncomfortable, Behavior is calm, cooperative, hj appropriate for age. Pain: Complains of pain in chest Pain radiates to anterior aspect of left shoulder. Cardiovascular: Capillary refill < 3 seconds Patient's skin is warm and dry. Historical: - Allergies: 14:22 NKDA; hj - Home Meds: 14:22 albuterol sulfate 2.5 mg /3 mL (0.083 %) Inhl nebu for Chronic Obstructive Pulmonary hj Disease [Active]; aspirin 81 mg Oral chew 1 tab once daily [Active]; ipratropium bromide (bulk) miscellaneous powd daily [Active]; metoprolol tartrate 50 mg oral tab 1 tab 2 times per day [Active]; buspirone 15 mg Oral tab 1 tab 2 times per day [Active]; BRILINTA 90 mg oral tab 1 tab 2 times per day [Active]; atorvastatin 80 mg oral tab 1 tab once daily [Active]; nitroglycerin Oral [Active]; omeprazole 20 mg Oral cpDR 1 cap once daily for Gastroesophageal reflux [Active]; - PMHx: 14:22 Cholelithiasis; COPD; CVA; Dementia; enlarged prostate; Hernia; Hypertension; RI; TIA; hj - PSHx: 14:22 pacemaker; L leg bypass; hear stent; hj - Immunization history:: Adult Immunizations up to date. - Social history:: Smoking status: Patient/guardian denies using tobacco, Patient/guardian denies using alcohol. - Ebola Screening: : Patient negative for fever greater than or equal to 101.5 degrees Fahrenheit, and additional compatible Ebola Virus Disease symptoms Patient denies exposure to infectious person Patient denies travel to an Ebola-affected area in the 21 days before illness onset. - Family history:: not pertinent. - Hospitalizations: : No recent hospitalization is reported. - History obtained from: son. Screenin:23 Abuse screen: Denies threats or abuse. Denies injuries from another. Nutritional hj screening: No deficits noted. Tuberculosis screening: No symptoms or risk factors identified. Fall Risk None identified. Assessment: 14:24 Pain: Pain began 1 day ago. hj 14:30 General: Appears in no apparent distress. uncomfortable, Behavior is calm, cooperative, aj1 appropriate for age. Pain: Complains of pain in anterior aspect of left upper chest Pain radiates to anterior aspect of left shoulder, posterior aspect of left shoulder and neck Pain currently is 8 out of 10 on a pain scale. Quality of pain is described as sharp, Pain began 1 day ago. Is continuous, Alleviated by nothing. Aggravated by nothing. Neuro: Level of Consciousness is awake, alert, obeys commands, Oriented to person, place, time, situation, Speech is normal, Facial symmetry appears normal. Cardiovascular: Reports chest pain, shortness of breath, Denies palpitations, syncope, Heart tones S1 S2 present Patient's skin is warm and dry. Rhythm is sinus rhythm Chest pain is described as Pain is 8 out of 10 on a pain scale. quality is sharp, is located in left anterior chest wall radiates to left arm(s) neck began 1 day ago episodes are continuous. Respiratory: Reports shortness of breath cough that is dry, Airway is patent Respiratory effort is even, unlabored, Respiratory pattern is regular, symmetrical, Breath sounds are clear bilaterally. GI: No signs and/or symptoms were reported involving the gastrointestinal system. : No signs and/or symptoms were reported regarding the genitourinary system. EENT: No signs and/or symptoms were reported regarding the EENT system. Derm: No signs and/or symptoms reported regarding the dermatologic system. Skin is pink, warm \T\ dry. normal. Musculoskeletal: No signs and/or symptoms reported regarding the musculoskeletal system. Circulation, motion, and sensation intact. 15:21 Reassessment: Patient appears in no apparent distress at this time. No changes from aj1 previously documented assessment. Patient and/or family updated on plan of care and expected duration. Pain level reassessed. Patient is alert, oriented x 3, equal unlabored respirations, skin warm/dry/pink. 16:15 Reassessment: Patient states that his pain and nausea has improved. aj1 16:46 Reassessment: Patient and/or family updated on plan of care and expected duration. Pain aj1 level reassessed. General: Appears in no apparent distress. comfortable, Behavior is calm, cooperative, appropriate for age. Neuro: Level of Consciousness is awake, alert, obeys commands, Oriented to person, place, time, situation, Speech is normal, Facial symmetry appears normal. Cardiovascular: Patient's skin is warm and dry. Rhythm is sinus rhythm. Respiratory: Airway is patent Respiratory effort is even, unlabored, Respiratory pattern is regular, symmetrical. 17:30 Reassessment: Patient appears in no apparent distress at this time. No changes from aj1 previously documented assessment. Patient and/or family updated on plan of care and expected duration. Pain level reassessed. Patient is alert, oriented x 3, equal unlabored respirations, skin warm/dry/pink. Vital Signs: 14:24 BP 116 / 64; Pulse 70; Resp 18; Temp 98.4(TE); Pulse Ox 98% on R/A; Weight 68.49 kg; Height 5 ft. 9 in. (175.26 cm); Pain 8/10; 15:22 BP 119 / 69; Pulse 64; Resp 22; Pulse Ox 98% on R/A; aj1 16:33 BP 133 / 72; Pulse 59; Resp 18; Pulse Ox 100% on R/A; mh5 17:05 BP 144 / 73; Pulse 83; Resp 14; Pulse Ox 100% on R/A; mh5 14:24 Body Mass Index 22.30 (68.49 kg, 175.26 cm) ED Course: 14:13 Patient arrived in ED. mr 14:13 Yung Thomas MD is Private Physician. mr 14:19 Triage completed. hj 14:23 Arm band placed on left wrist. hj 14:23 Patient has correct armband on for positive identification. Placed in gown. Bed in low hj position. Call light in reach. Side rails up X 1. Adult w/ patient. security monitor on. Pulse ox on. NIBP on. 14:24 Patient maintains SpO2 saturation greater than 95% on room air. hj 14:29 EKG done, by pre sales technical consultant. reviewed by Kaushik Nova MD. 3 14:30 No provider procedures requiring assistance completed. aj1 14:35 Missed attempt(s): 22 gauge in left forearm. Bleeding controlled, band aid applied, aj1 catheter tip intact. 14:40 Missed attempt(s): 22 gauge in right forearm. Bleeding controlled, band aid applied, aj1 catheter tip intact. 14:44 Linh Rosa FNP is PHCP. kav 14:44 Kaushik Nova MD is Attending Physician. kav 14:55 Inserted saline lock: 22 gauge in left upper arm, using aseptic technique. Blood ss collected. 15:06 Dianna Nolasco, RN is Primary Nurse. aj1 15:18 X-ray completed. Portable x-ray completed in exam room. Patient tolerated procedure ml well. 15:19 XRAY Chest (1 view) In Process Unspecified. EDMS 16:56 Yung Thomas MD is Referral Physician. kav 16:56 Luis Carlos Quevedo MD is Referral Physician. kav 17:30 IV discontinued, intact, bleeding controlled, No redness/swelling at site. Pressure aj1 dressing applied. Administered Medications: 15:14 Drug: NS 0.9% 1000 ml Route: IV; Rate: 75 ml/hr; Site: left upper arm; aj1 17:29 Follow up: IV Status: Completed infusion; IV Intake: 225ml aj1 15:14 Drug: Zofran 4 mg Route: IVP; Site: left upper arm; aj1 17:29 Follow up: Response: No adverse reaction aj1 15:14 Drug: morphine 4 mg Route: IVP; Site: left upper arm; aj1 17:29 Follow up: Response: No adverse reaction aj1 15:43 Drug: Zofran 4 mg Route: IVP; Site: left upper arm; aj1 17:28 Follow up: Response: No adverse reaction aj1 Intake: 17:29 IV: 225ml; Total: 225ml. aj1 Outcome: 16:57 Discharge ordered by MD. mata 17:30 Discharged to home ambulatory, with family. aj1 17:30 Condition: good 17:30 Discharge instructions given to patient, family, Instructed on discharge instructions, follow up and referral plans. Demonstrated understanding of instructions, follow-up care. 17:31 Patient left the ED. aj1 Signatures: Dispatcher [employer] EDDianna Martinez, RN RN aj1 Linh Rosa, HEAD GREENSKEEPER HEAD GREENSKEEPER Amber Mercado, Lupe Perez RN RN Calderon De Jesus RN RN Amber Xiao [facility] Corrections: (The following items were deleted from the chart) 14:26 14:24 Pulse 70bpm; Resp 18bpm; Pulse Ox 98% RA; Temp 98.4F Temporal; 68.49 kg; Height 5 hj ft. 9 in.; BMI: 22.3; Pain 8/10; hj
--- NOTE | 2017-09-30 16:57 | EDPHYS ---
Physician Documentation [facility] Name: Maurice Morfin Age: 67 yrs Sex: Male : 1950 Arrival Date: 09/30/2017 Time: 14:13 Bed 17 Private MD: Yung Thomas ED Physician Kaushik Nova HPI: 09/30 14:47 This 67 yrs old Male presents to ER via Ambulatory with complaints of Chest kav Pain. 15:03 Onset: The symptoms/episode began/occurred acutely, last night. Associated signs and kav symptoms: Pertinent positives: The patient does not have any pertinent positive signs or symptoms associated with pediatric illness. chest pain, Pertinent negatives: vomiting. Modifying factors: The patient symptoms are alleviated by nothing, Patient reports taking 2 nitrostat tabs last night at 9:00 pm for c/o chest pain, left jaw pain and left upper extremity pain. The patient has not experienced similar symptoms in the past. The patient has not recently seen a physician. Lime Hide Inspector is Dr. Mccall; PCP is Dr. Thomas. . 15:08 The patient or guardian reports chest pain that is located primarily in the substernal kav area. Onset: acutely, last night. The pain radiates to the left shoulder, left jaw. The chest pain is described as clutching. Duration: The patient or guardian reports a single episode, that is still ongoing, but improving. Severity of pain: At its worst the pain was moderate just prior to arrival. Historical: - Allergies: 14:22 NKDA; hj - Home Meds: 14:22 albuterol sulfate 2.5 mg /3 mL (0.083 %) Inhl nebu for Chronic Obstructive Pulmonary hj Disease [Active]; aspirin 81 mg Oral chew 1 tab once daily [Active]; ipratropium bromide (bulk) miscellaneous powd daily [Active]; metoprolol tartrate 50 mg oral tab 1 tab 2 times per day [Active]; buspirone 15 mg Oral tab 1 tab 2 times per day [Active]; BRILINTA 90 mg oral tab 1 tab 2 times per day [Active]; atorvastatin 80 mg oral tab 1 tab once daily [Active]; nitroglycerin Oral [Active]; omeprazole 20 mg Oral cpDR 1 cap once daily for Gastroesophageal reflux [Active]; - PMHx: 14:22 Cholelithiasis; COPD; CVA; Dementia; enlarged prostate; Hernia; Hypertension; MN; TIA; hj - PSHx: 14:22 pacemaker; L leg bypass; hear stent; hj - Immunization history:: Adult Immunizations up to date. - Social history:: Smoking status: Patient/guardian denies using tobacco, Patient/guardian denies using alcohol. - Ebola Screening: : Patient negative for fever greater than or equal to 101.5 degrees Fahrenheit, and additional compatible Ebola Virus Disease symptoms Patient denies exposure to infectious person Patient denies travel to an Ebola-affected area in the 21 days before illness onset. - Family history:: not pertinent. - Hospitalizations: : No recent hospitalization is reported. - History obtained from: son. ROS: 15:08 Constitutional: Negative for fever, chills, and weight loss, Eyes: Negative for injury, kav pain, redness, and discharge, ENT: Negative for injury, pain, and discharge, Neck: Negative for injury, pain, and swelling, Respiratory: Negative for shortness of breath, cough, wheezing, and pleuritic chest pain, Abdomen/GI: Negative for abdominal pain, nausea, vomiting, diarrhea, and constipation, Back: Negative for injury and pain, : Negative for injury, bleeding, discharge, and swelling, MS/Extremity: Negative for injury and deformity, Skin: Negative for injury, rash, and discoloration, Neuro: Negative for headache, weakness, numbness, tingling, and seizure, Psych: Negative for depression, anxiety, suicide ideation, homicidal ideation, and hallucinations, Allergy/Immunology: Negative for hives, rash, and allergies, Endocrine: Negative for neck swelling, polydipsia, polyuria, polyphagia, and marked weight changes, Hematologic/Lymphatic: Negative for swollen nodes, abnormal bleeding, and unusual bruising. 15:08 Cardiovascular: Positive for chest pain, of the left breast. Exam: 15:08 Constitutional: This is a well developed, well nourished patient who is awake, alert, kav and in no acute distress. Head/Face: Normocephalic, atraumatic. Eyes: Pupils equal round and reactive to light, extra-ocular motions intact. Lids and lashes normal. Conjunctiva and sclera are non-icteric and not injected. Cornea within normal limits. Periorbital areas with no swelling, redness, or edema. ENT: Nares patent. No nasal discharge, no septal abnormalities noted. Tympanic membranes are normal and external auditory canals are clear. Oropharynx with no redness, swelling, or masses, exudates, or evidence of obstruction, uvula midline. Mucous membranes moist. Neck: Trachea midline, no thyromegaly or masses palpated, and no cervical lymphadenopathy. Supple, full range of motion without nuchal rigidity, or vertebral point tenderness. No Meningismus. Chest/axilla: Normal chest wall appearance and motion. Nontender with no deformity. No lesions are appreciated. Respiratory: Lungs have equal breath sounds bilaterally, clear to auscultation and percussion. No rales, rhonchi or wheezes noted. No increased work of breathing, no retractions or nasal flaring. Abdomen/GI: Soft, non-tender, with normal bowel sounds. No distension or tympany. No guarding or rebound. No evidence of tenderness throughout. Back: No spinal tenderness. No costovertebral tenderness. Full range of motion. Skin: Warm, dry with normal turgor. Normal color with no rashes, no lesions, and no evidence of cellulitis. MS/ Extremity: Pulses equal, no cyanosis. Neurovascular intact. Full, normal range of motion. Neuro: Awake and alert, GCS 15, oriented to person, place, time, and situation. Cranial nerves II-XII grossly intact. Motor strength 5/5 in all extremities. Sensory grossly intact. Cerebellar exam normal. Normal gait. Psych: Awake, alert, with orientation to person, place and time. Behavior, mood, and affect are within normal limits. 15:08 Cardiovascular: Rate: normal, Rhythm: regular, Pulses: Pulses are 2+ in right radial artery, right femoral artery, right posterior tibial artery, left radial artery, left femoral artery, left posterior tibial artery, left carotid pulse and right carotid pulse. Heart sounds: normal, normal S1and S2. 15:08 ECG was reviewed by the Attending Physician. Vital Signs: 14:24 BP 116 / 64; Pulse 70; Resp 18; Temp 98.4(TE); Pulse Ox 98% on R/A; Weight 68.49 kg; hj Height 5 ft. 9 in. (175.26 cm); Pain 8/10; 15:22 BP 119 / 69; Pulse 64; Resp 22; Pulse Ox 98% on R/A; aj1 16:33 BP 133 / 72; Pulse 59; Resp 18; Pulse Ox 100% on R/A; mh5 17:05 BP 144 / 73; Pulse 83; Resp 14; Pulse Ox 100% on R/A; mh5 14:24 Body Mass Index 22.30 (68.49 kg, 175.26 cm) MDM: 15:13 HEART Score: History: Moderately Suspicious (1), ECG: Normal (0), Age: > 45 and < 65 kav years (1), Risk Factors: 1 or 2 risk factors (1), [Hypercholesterolemia] [Hypertension] Troponin: < or = 1 x Normal Limit (0), Total Score =. Data reviewed: vital signs, nurses notes. 15:15 Medical screening is not applicable. ka 16:28 ED course: awaiting results of 2nd troponin. 09/30 14:45 Order name: Basic Metabolic Panel; Complete Time: 16:09/30 14:45 Order name: CBC with Diff; Complete Time: 16:09/30 14:45 Order name: Ckmb; Complete Time: 16:09/30 14:45 Order name: CPK; Complete Time: 16:09/30 14:45 Order name: LFT's; Complete Time: 16:09/30 14:45 Order name: Magnesium; Complete Time: 16:09/30 14:45 Order name: NT PRO-BNP; Complete Time: 16:09/30 14:45 Order name: PT-INR; Complete Time: 16:09/30 14:45 Order name: Ptt, Activated; Complete Time: 16:09/30 14:45 Order name: Troponin (emerg Dept Use Only); Complete Time: 16:26 09/30 14:45 Order name: XRAY Chest (1 view); Complete Time: 16:09/30 16:08 Order name: Troponin (emerg Dept Use Only); Complete Time: 16:55 09/30 14:45 Order name: EKG; Complete Time: 14:46 09/30 14:45 Order name: Cardiac monitoring; Complete Time: 14:53 09/30 14:45 Order name: EKG - Nurse/Tech; Complete Time: 14:53 kav 09/30 14:45 Order name: IV Saline Lock; Complete Time: 14:53 v 09/30 14:45 Order name: Labs collected and sent; Complete Time: 14:53 kav 09/30 14:45 Order name: O2 Per Protocol; Complete Time: 14:53 v 09/30 14:45 Order name: O2 Sat Monitoring; Complete Time: 14:53 kav EC:08 Rate is 74 beats/min. Rhythm is regular. QRS [place] is Normal. ID interval is normal. QRS kav interval is normal. QT interval is normal. No Q waves. T waves are Normal. No ST changes noted. Clinical impression: Normal ECG. Administered Medications: 15:14 Drug: NS 0.9% 1000 ml Route: IV; Rate: 75 ml/hr; Site: left upper arm; aj1 17:29 Follow up: IV Status: Completed infusion; IV Intake: 225ml aj1 15:14 Drug: Zofran 4 mg Route: IVP; Site: left upper arm; aj1 17:29 Follow up: Response: No adverse reaction aj1 15:14 Drug: morphine 4 mg Route: IVP; Site: left upper arm; aj1 17:29 Follow up: Response: No adverse reaction aj1 15:43 Drug: Zofran 4 mg Route: IVP; Site: left upper arm; aj1 17:28 Follow up: Response: No adverse reaction aj1 Disposition: 09/30/17 16:57 Discharged to Home. Impression: Chest pain, unspecified. - Condition is Stable. - Discharge Instructions: Nonspecific Chest Pain. - Medication Reconciliation Form, Thank You Letter form. - Follow up: Yung Thomas MD; When: 2 - 3 days; Reason: If symptoms return, Recheck today's complaints, Continuance of care, Re-evaluation by your physician. Follow up: Luis Carlos Quevedo MD; When: 2 - 3 days; Reason: Recheck today's complaints, Continuance of care, Re-evaluation by your physician. - Problem is new. - Symptoms have improved. - Notes: f/u with your fuel cell builder/dr. mccall in 2-3 days for post- ED evaluation and treatment. Addendum: 10/07/2017 08:00 Co-signature as Attending Physician, Kaushik Nova MD I agree with the assessment and k dr plan of care. Signatures: Dispatcher [employer] EDDianna Martinez RN RN aj1 Kaushik Nova MD MD kdr Vern, Katherine, PRODUCT SAFETY CONSULTANT PRODUCT SAFETY CONSULTANT kaCalderon Rincon RN RN hj Corrections: (The following items were deleted from the chart) 09/30 17:31 16:57 09/30/2017 16:57 Discharged to Home. Impression: Chest pain, unspecified. aj1 Condition is Stable. Forms are Medication Reconciliation Form, Thank You Letter, Antibiotic Education, Prescription Opioid Use. Follow up: Yung Thomas; When: 2 - 3 days; Reason: If symptoms return, Recheck today's complaints, Continuance of care, Re-evaluation by your physician. Follow up: Luis Carlos Quevedo; When: 2 - 3 days; Reason: Recheck today's complaints, Continuance of care, Re-evaluation by your physician. Problem is new. Symptoms have improved. kav
[2017-09-30 17:42] VITALS: TEMP 98.4
[2017-09-30 17:44] VITALS: O2SAT 100
[2017-09-30 17:45] VITALS: BP 144/73
--- NOTE | 2017-09-30 19:03 | EKG ---
Test Date: 2017-09-30 Test Time: 14:20:24 Olap Developer: EWA MEASUREMENT RESULTS: Intervals: Rate: 74 [place]: 160 QRSD: 78 QT: 410 QTc: 455 [place]: P: 59 [place]: 160 QRS: 57 T: 50 INTERPRETIVE STATEMENTS: Normal sinus rhythm Normal ECG Compared to ECG 09/08/2017 23:25:32 Atrial-paced complex(es) or rhythm no longer present Ventricular-paced complex(es) or rhythm no longer present Electronically Signed On 09-30-17 19:02:43 CDT by Epifanio Gonzalez
== END 2017-09-30 17:31 | disposition home or self-care (01) ==
LOC: ER 14:10
DX: R07.9 Chest pain, unspecified (principal); J44.9 Chronic obstructive pulmonary disease, unspecified; F03.90 Unspecified dementia, unspecified severity, without behavioral disturbance, psychotic disturbance, mood disturbance, and anxiety; I10 Essential (primary) hypertension
CPT/HCPCS: 36415; 71045; 80048; 80076; 82550; 82553; 83735; 83880; 84484 ×2; 85025; 85610; 85730; 93005; 96361; 96374; 96375; 99285; J2405 ×2; J7030

== ENCOUNTER 2017-11-30 12:18 | Emergency (ER) | payer OTHER ==
--- OUTSIDE RECORDS SUMMARY | 2017-11-30 12:20 | XMS REPORT | Clinical Summary ---
:1950 Demographics Address [address] [place] [address] Home Phone Mobile Phone Preferred Language [place] Marital Status Unknown Cheondoism Affiliation Unknown Race White Ethnic Group Not or Author Organization [facility] Address [address] [place] [address] Phone Support Name Relationship Address Phone Mami Pena [address] [place] [address] Unavailable Naturalson 11 [address] [place] [address] Care Team Providers Name Role Phone Unavailable [...] prior to 03/12 arrival Acute ischemic stroke ([facility]) 03/11/2017 HLD (hyperlipidemia) 01/17/2016 Peripheral vascular disease ([facility]) 01/14/2016 Postoperative anemia 01/14/2016 Coronary artery disease involving [place] coronary artery 01/10/2016 PAD (peripheral artery disease) ([facility]) 01/10/2016 HTN (hypertension) 01/10/2016 Iliac artery stenosis, bilateral ([facility]) 01/10/2016 Unstable angina ([facility]) 01/10/2016 COPD (chronic obstructive pulmonary disease) ([facility]) 01/10/2016 Tobacco abuse 01/10/2016 ACS (acute coronary syndrome) ([facility]) 01/10/2016 Encounters Date Type Specialty Care Team Description 03/11/2017 - Hospital Encounter General Internal Corbin Garcia Acute ischemic 03/14/2017 Medicine MD Doug stroke Stephanie Lugo ([facility]);Received MD Addie tissue plasminogen activator (t-PA) less than 24 hours prior to arrival;Essential hypertension;Periph eral vascular disease ([facility]);Tobacco abuse;Tobacco abuse counseling after 11/29/2016 Social History Tobacco Use Types Packs/Day Years Used Date Current Every Day Smoker Cigarettes 0.5 50 Smokeless Tobacco: Never Used Tobacco Cessation: Ready to Quit: No; Counseling Given: No Comments: 5-6 cigarettes a day Alcohol Use Drinks/Week oz/Week Comments No Sex Assigned at Date Recorded Not on file Last Filed Vital Signs Vital Sign Reading Time Taken Blood Pressure 119/65 03/14/2017 7:15 AM PAPER FOLDER Pulse 60 03/14/2017 7:15 AM PAPER FOLDER Temperature 35.8 C (96.4 F) 03/14/2017 7:15 AM PAPER FOLDER Respiratory Rate 17 03/14/2017 7:15 AM PAPER FOLDER Oxygen Saturation 96% 03/14/2017 7:15 AM PAPER FOLDER Inhaled Oxygen Concentration - - Weight 70.4 kg (155 lb 3.3 oz) 03/11/2017 11:00 PM PAPER FOLDER Height 172.7 cm (5' 8") 03/11/2017 11:00 PM PAPER FOLDER Body Mass Index 23.6 03/11/2017 11:00 PM PAPER FOLDER Plan of Treatment Health Maintenance Due Date Last Done Comments INFLUENZA VACCINE 12/06/2017 Implants Implanted Type Area Exercise Instruct Device Expiration Model / Identifier Date Serial / Lot Grft Eptfe-Heparin Rng [id number] - [id number] Graft/Pa N/A: MARIELENA PEREZE & 09/01/2019 [id number] / Implanted: Qty: 1 on 01/13/2016 by Oniel Smith MD [facility] [id number] / Results ARRYTHMIA IMPLANT REPORT - SCAN [...] - 1 % Specimen Performing Laboratory Blood [address] [address] CBC with platelet count + automated diff (03/14/2017 4:53 AM)Only the most recent of4 resultswithin the time period is included. Specimen Performing Laboratory Blood Narrative The following orders were created for panel order CBC with platelet count + automated diff. Procedure Abnormality Status --------- ------ CBC with platelet count ...[[id number]]AbnormalFinal result Please view results for these tests [...] PATIENTS. Specimen Performing Laboratory Blood [facility] [address] [address] ECHOCARDIOGRAM REPORT - SCAN (03/12/2017 4:57 PM)CT [...] MD Report Verified Date/Time:03/12/2017 15:31:17 Reading Location: [address] Neuro Reading Room Procedure Note Interface, External Ris In - 03/12/2017 3:33 PM PAPER FOLDER FINAL REPORT CT head without contrast 03/12/2017 [...] Report Verified Date/Time: 03/12/2017 15:31:17 Reading Location: [facility] C013V Neuro Reading Room Troponin I (03/12/2017 2:28 PM)Only the most recent of3 resultswithin the time period is included. Component Value Ref Range Troponin I 0.02 0.00 - 0.03 ng/mL Specimen Performing Laboratory Blood - Arm, [place] [address] Narrative Troponin I (TnI) levels must be [...] 414 ms QTC Calculation(Bazett) 414 ms P [place] -18 degrees R [place] 9 degrees T [place] 68 degrees Electronic atrial pacemaker ST abnormality, possible digitalis effect Abnormal ECG No previous ECGs available Confirmed by Jasmeet HAIDER MICHAEL ([id number]) on 03/13/2017 9:39:18 AM Procedure Note Interface, External Ris In - 03/13/2017 9:39 AM PAPER FOLDER Ventricular Rate 60 BPM Atrial Rate 60 BPM P-R Interval 138 ms QRS Duration 74 ms Q-T Interval 414 ms QTC Calculation(Bazett) 414 ms P [place] -18 degrees R [place] 9 degrees T [place] 68 degrees Electronic atrial pacemaker ST abnormality, possible digitalis effect Abnormal ECG No previous ECGs available Confirmed by Jasmeet HAIDER MICHAEL ([id number]) on 03/13/2017 9:39:18 AM 2D Echo W/Doppler(CW/PW/Color) (03/12/2017 10:53 AM) Component Value Ref Range Ejection Fraction Specimen Performing Laboratory [facility] Narrative Transthoracic Echocardiography Report (TTE) Demographics Patient Name Tyron PENA of Study 03/12/2017 [id number] GenderMale Visit Number [id number] Chuck [id number] Number [id number] Number Date of Birth1950 Referring Physician Corbin Garcia Age67 year(s) Civil Design Technician Kristopher Muniz MD Physician Fellow CHLOE Melton [...] External Ris In - 03/12/2017 4:15 PM PAPER FOLDER Transthoracic Echocardiography Report (TTE) Demographics Patient Name MAMI PENA Date of Study 03/12/2017 Gender Male Visit Number [id number] Race Room Number 7518 Number Date of 1950 Referring Physician Corbin Garcia Age 67 year(s) Civil Design Technician Kristopher Engle Interpreting Prosper Muniz MD Physician [...] MD Report Verified Date/Time:03/12/2017 10:06:57 Reading Location: [facility] Radiology Reading Room Procedure Note Interface, External Ris In - 03/12/2017 10:09 AM PAPER FOLDER FINAL REPORT Two frontal chest images Discussion: [...] Report Verified Date/Time: 03/12/2017 10:06:57 Reading Location: [facility] Radiology Reading Room PHERAL VASCULAR REPORT - SCAN (03/12/2017 8:20 AM)Homocysteine - Fasting ( 03/12/2017 8:13 AM) Component Value Ref Range Homocysteine 11.8 5.1 - 15.4 umol/L Specimen Performing Laboratory Blood - [place], [address] [address] Narrative Fasting Hemoglobin A1c - Fasting (03/12/2017 8:13 AM) Component Value Ref Range Hemoglobin A1C 5.6 4.3 - 6.1 % Specimen Performing Laboratory Blood - [place], [address] [address] Narrative Fasting Creatine Kinase (CK), Total and MB (03/12/2017 8:13 AM)Only the most recent of2 resultswithin the time period is included. Component Value Ref Range Total CK 59 29 - 200 U/L CK-MB 1.0 0.0 - 6.6 ng/mL MB Relative Index 1.7 % Specimen Performing Laboratory Blood - [place], [address] [address] Narrative CK-MB Reference Range: <6.7Normal 6.7-10.0Borderline >10.0 Abnormal Fasting Fasting Fasting lipid panel (03/12/2017 8:13 AM) Component Value Ref Range Triglycerides 151 mg/dL Cholesterol 147 mg/dL HDL 29 mg/dL LDL Calculated 88 mg/dL Specimen Performing Laboratory Blood - [place], [address] [address] Narrative Triglyceride Reference Range: Low Risk <150 [id number] High Risk 200-499 Very High Risk>=500 Cholesterol Reference Range: Low Risk <200 [id number] High Risk>240 HDL Cholesterol Reference Range: Low Risk >=60 High Risk <40 LDL Cholesterol Reference Range: Optimal<100 Near [id number] Very High >=190 Fasting Carotid doppler bilateral (03/12/2017 6:19 AM) Component Value Ref Range Ejection Fraction Specimen Performing Laboratory [facility] Impressions Right Impression 1. There is <50% [...] Demographics Patient Name JEAN,Date of Study2017 RADHA [id number] Age67 Visit Number [id number] Gender Male Accession Number [id number] Date of Birth1950 [facility] Room Ainfth4852 Physician Elaine Garcia MD, RPVI Procedure Type of Study: Cerebral: Carotid, CAROTID DOPPLER, BILATERAL. Indications for Study:Stroke. Blood Pressure:Right arm 116/68 mmHg.Left arm 123/73 mmHg. Patient Status:Routine. Study Location:Portable. Technical Quality:Adequate visualization. Risk Factors History of Disease + + +--------+ !Diagnosis !Date!Comments! + + +--------+ !History/Risk Factors: !03/12/2017!Stroke! + + +--------+ Procedure Note Interface, External Ris In - 03/12/2017 7:32 AM PAPER FOLDER [facility] LAB - Carotid Duplex Study Demographics Patient Name JEAN, Date of Study 03/12/2017 RADHA Age 67 Visit Number [id number] Gender Male Accession Number [id number] Date of 1950 Referring Corbin Garcia Room Number 7518 Physician Civil Design Technician Vangie Plaza Interpreting Cristobal Perez T Physician [...] ng/mL Specimen Performing Laboratory Blood - [place], [address] [address] TSH/Free T4 If Indicated (03/11/2017 11:41 PM) Component Value Ref Range TSH 2.01 0.35 - 4.94 uIU/mL Specimen Performing Laboratory Blood - [place], [address] [address] Prothrombin time/INR (03/11/2017 11:41 PM) Component Value Ref Range Protime 17.2 (H) 11.7 - 14.7 seconds INR 1.4 <=5.9 Specimen Performing Laboratory Blood - [place], [address] [address] Narrative RECOMMENDED COUMADIN/WARFARIN INR THERAPY RANGES STANDARD DOSE: 2.0 - 3.0 Includes: PROPHYLAXIS for venous thrombosis, systemic embolization; TREATMENT for venous thrombosis and/or pulmonary embolus. HIGH RISK: Target INR is 2.5-3.5 for patients with mechanical heart valves. after 11/29/2016
--- OUTSIDE RECORDS SUMMARY | 2017-11-30 12:21 | XMS REPORT ---
:1950 Demographics Address [address] [place] [address] Preferred Language Unknown Marital Status Unknown Amish Affiliation Unknown Race Unknown Additional Race(s) Unavailable Ethnic Group Unknown [facility] Address [address] [place] [address] [place] [id number] Care Team Providers Name Role Phone MECCA [...] Comments SODIUM (BEAKER) (test 136 meq/L 136-145 rwhr=385) POTASSIUM (BEAKER) (test 4.0 meq/L 3.5-5.1 zlve=783) CHLORIDE (BEAKER) (test 106 meq/L 98-107 dqvu=001) CO2 (BEAKER) (test pfut=169) 23 meq/L 22-29 BLOOD UREA NITROGEN (BEAKER) 15 mg/dL 7-21 (test tpjs=714) CREATININE (BEAKER) (test 0.92 mg/dL 0.57-1.25 ignt=457) GLUCOSE RANDOM (BEAKER) 92 mg/dL 70-105 (test uxkq=456) CALCIUM (BEAKER) (test 8.7 mg/dL 8.4-10.2 meop=288) EGFR (BEAKER) (test 82 mL/min/1.73 sq m ESTIMATED GFR IS NOT hhrb=0577) ACCURATE CREATININE CLEARANCE IN PREDICTING GLOMERULAR FILTRATION RATE. ESTIMATED GFR IS NOT APPLICABLE FOR DIALYSIS PATIENTS. CBC W/PLT COUNT & AUTO [id number] 05:55:00 Test Item Value Reference Range Comments WHITE BLOOD CELL COUNT (BEAKER) (test xywd=947) 5.9 K/ L 3.5-10.5 RED BLOOD CELL COUNT (BEAKER) (test oqvo=468) 4.25 M/ L 4.63-6.08 HEMOGLOBIN (BEAKER) (test xqyw=491) 12.3 GM/DL 13.7-17.5 HEMATOCRIT (BEAKER) (test lnpl=565) 37.8 % 40.1-51.0 MEAN CORPUSCULAR VOLUME (BEAKER) (test xujw=825) 88.9 fL 79.0-92.2 MEAN CORPUSCULAR HEMOGLOBIN (BEAKER) (test 28.9 pg 25.7-32.2 vvpf=061) MEAN CORPUSCULAR HEMOGLOBIN CONC (BEAKER) (test 32.5 GM/DL 32.3-36.5 cqqj=410) RED CELL DISTRIBUTION WIDTH (BEAKER) (test 15.9 % 11.6-14.4 fjcv=858) PLATELET COUNT (BEAKER) (test tpbs=654) 173 K/CU MM 150-450 MEAN PLATELET VOLUME (BEAKER) (test mgyt=108) 11.5 fL 9.4-12.4 NUCLEATED RED BLOOD CELLS (BEAKER) (test 0 /100 WBC 0-0 wrsk=774) NEUTROPHILS RELATIVE PERCENT (BEAKER) (test 48 % dfld=609) LYMPHOCYTES RELATIVE PERCENT (BEAKER) (test 34 % uvdz=773) MONOCYTES RELATIVE PERCENT (BEAKER) (test 12 % agtd=022) EOSINOPHILS RELATIVE PERCENT (BEAKER) (test 4 % ezak=456) BASOPHILS RELATIVE PERCENT (BEAKER) (test 2 % njtm=980) NEUTROPHILS ABSOLUTE COUNT (BEAKER) (test 2.85 K/ L 1.78-5.38 xevu=233) LYMPHOCYTES ABSOLUTE COUNT (BEAKER) (test 2.02 K/ L 1.32-3.57 zccv=834) MONOCYTES ABSOLUTE COUNT (BEAKER) (test 0.68 K/ L 0.30-0.82 vgfe=029) EOSINOPHILS ABSOLUTE COUNT (BEAKER) (test 0.25 K/ L 0.04-0.54 ogel=011) BASOPHILS ABSOLUTE COUNT (BEAKER) (test 0.09 K/ L 0.01-0.08 quic=300) IMMATURE GRANULOCYTES-RELATIVE PERCENT (BEAKER) 1 % 0-1 (test hlnz=2092) CBC W/PLT COUNT & AUTO [id number] 05:15:00 Test Item Value Reference Range Comments WHITE BLOOD CELL COUNT (BEAKER) (test tova=117) 5.4 K/ L 3.5-10.5 RED BLOOD CELL COUNT (BEAKER) (test znay=126) 4.34 M/ L 4.63-6.08 HEMOGLOBIN (BEAKER) (test uuhe=869) 12.5 GM/DL 13.7-17.5 HEMATOCRIT (BEAKER) (test eeam=199) 39.0 % 40.1-51.0 MEAN CORPUSCULAR VOLUME (BEAKER) (test wjgr=168) 89.9 fL 79.0-92.2 MEAN CORPUSCULAR HEMOGLOBIN (BEAKER) (test 28.8 pg 25.7-32.2 bzud=139) MEAN CORPUSCULAR HEMOGLOBIN CONC (BEAKER) (test 32.1 GM/DL 32.3-36.5 usuq=577) RED CELL DISTRIBUTION WIDTH (BEAKER) (test 15.9 % 11.6-14.4 agfy=647) PLATELET COUNT (BEAKER) (test cqwi=507) 162 K/CU MM 150-450 MEAN PLATELET VOLUME (BEAKER) (test huay=899) 10.6 fL 9.4-12.4 NUCLEATED RED BLOOD CELLS (BEAKER) (test 0 /100 WBC 0-0 bgjg=234) NEUTROPHILS RELATIVE PERCENT (BEAKER) (test 52 % xyhe=374) LYMPHOCYTES RELATIVE PERCENT (BEAKER) (test 31 % javt=896) MONOCYTES RELATIVE PERCENT (BEAKER) (test 11 % zeox=876) EOSINOPHILS RELATIVE PERCENT (BEAKER) (test 4 % sgxv=234) BASOPHILS RELATIVE PERCENT (BEAKER) (test 2 % aowz=554) NEUTROPHILS ABSOLUTE COUNT (BEAKER) (test 2.78 K/ L 1.78-5.38 dyat=405) LYMPHOCYTES ABSOLUTE COUNT (BEAKER) (test 1.69 K/ L 1.32-3.57 qfxt=224) MONOCYTES ABSOLUTE COUNT (BEAKER) (test 0.59 K/ L 0.30-0.82 szaw=949) EOSINOPHILS ABSOLUTE COUNT (BEAKER) (test 0.21 K/ L 0.04-0.54 vwyo=225) BASOPHILS ABSOLUTE COUNT (BEAKER) (test 0.09 K/ L 0.01-0.08 orkx=681) IMMATURE GRANULOCYTES-RELATIVE PERCENT (BEAKER) 1 % 0-1 (test xzeh=3966) CT, BRAIN, WITHOUT [id number] 15:31:00FINAL REPORT CT head without contrast 03/12/2017 [...] Paez Verified Date/Time: 03/12/2017 15:31:17 Reading Location: [address] Neuro Reading Room TROPONIN [id number] 15:26:00 Test Item Value Reference Range Comments TROPONIN I (KYARA) (test iqja=834) 0.02 ng/mL 0.00-0.03 Troponin I (TnI) levels [...] acidosis, acute neurological disease, and persistent tachyarrhythmia.HEMOGLOBIN [id number] 12:38:00 Test Item Value Reference Range Comments HEMOGLOBIN A1C (KYARA) (test vznb=634) 5.6 % 4.3-6.1 FastingRAD, CHEST, 1 VIEW, NON [id number] 10:06:00Reason for exam:->rule out pneumoniaShould this be [...] Benites Verified Date/Time: 03/12/2017 10:06:57 Reading Location: [facility] Radiology Reading Room [id number] 09:08:00 Test Item Value Reference Range Comments HOMOCYSTEINE (BEAKER) (test ocfb=258) 11.8 umol/L 5.1-15.4 FastingCREATINE KINASE (CK), TOTAL AND [id number] 08:55:00 Test Item Value Reference Range Comments CREATINE KINASE TOTAL (BEAKER) (test mqis=149) 59 U/L 29-200 CREATINE KINASE-MB (BEAKER) (test kzxj=021) 1.0 ng/mL 0.0-6.6 CREATINE KINASE-MB INDEX (BEAKER) (test locl=240) 1.7 % CK-MB Reference Range:<6.7 Normal6.7-10.0 Borderline>10.0 AbnormalFastingFastingTROPONIN [id number] 08:55:00 Test Item Value Reference Range Comments TROPONIN I (BEAKER) (test zkrp=690) < ng/mL 0.00-0.03 Troponin I (TnI) levels [...] acidosis, acute neurological disease, and persistent tachyarrhythmia.FastingLIPID [id number] 08:48:00 Test Item Value Reference Range Comments TRIGLYCERIDES (BEAKER) (test ilow=067) 151 mg/dL CHOLESTEROL (BEAKER) (test wfrj=054) 147 mg/dL HDL CHOLESTEROL (BEAKER) (test xknv=357) 29 mg/dL LDL CHOLESTEROL CALCULATED (BEAKER) (test 88 mg/dL evmc=934) Triglyceride Reference Range: Low Risk <150 Borderline 150- 199 High Risk 200-499 Very High Risk >=500Cholesterol Reference Range: Low Risk <200 Borderline 200-239 High Risk > 240HDL Cholesterol Reference Range: Low Risk >=60 High Risk <40LDL Cholesterol Reference Range: Optimal <100 Near Optimal 100-129 Borderline 130-159 High 160-189 Very High >=190 FastingBASIC METABOLIC [id number] 08:48:00 Test Item Value Reference Range Comments SODIUM (BEAKER) (test 136 meq/L 136-145 jtmr=885) POTASSIUM (BEAKER) (test 4.4 meq/L 3.5-5.1 xxxd=345) CHLORIDE (BEAKER) (test 104 meq/L 98-107 ggct=986) CO2 (BEAKER) (test 25 meq/L 22-29 ooba=582) BLOOD UREA NITROGEN 15 mg/dL 7-21 (BEAKER) (test cftg=763) CREATININE (BEAKER) (test 0.87 mg/dL 0.57-1.25 giih=658) GLUCOSE RANDOM (BEAKER) 102 mg/dL 70-105 (test dwkk=129) CALCIUM (BEAKER) (test 8.9 mg/dL 8.4-10.2 tqgi=689) EGFR (BEAKER) (test 87 mL/min/1.73 sq m ESTIMATED GFR IS NOT lclv=7803) ACCURATE CREATININE CLEARANCE IN PREDICTING GLOMERULAR FILTRATION RATE. ESTIMATED GFR IS NOT APPLICABLE FOR DIALYSIS PATIENTS. FastingCBC W/PLT COUNT & AUTO [id number] 08:24:00 Test Item Value Reference Range Comments WHITE BLOOD CELL COUNT (BEAKER) (test qlvu=690) 5.7 K/ L 3.5-10.5 RED BLOOD CELL COUNT (BEAKER) (test igkk=751) 4.23 M/ L 4.63-6.08 HEMOGLOBIN (BEAKER) (test dxuj=762) 12.3 GM/DL 13.7-17.5 HEMATOCRIT (BEAKER) (test pzvg=436) 37.9 % 40.1-51.0 MEAN CORPUSCULAR VOLUME (BEAKER) (test zkst=008) 89.6 fL 79.0-92.2 MEAN CORPUSCULAR HEMOGLOBIN (BEAKER) (test 29.1 pg 25.7-32.2 qevb=352) MEAN CORPUSCULAR HEMOGLOBIN CONC (BEAKER) (test 32.5 GM/DL 32.3-36.5 ulxl=302) RED CELL DISTRIBUTION WIDTH (BEAKER) (test 15.9 % 11.6-14.4 rqis=572) PLATELET COUNT (BEAKER) (test suxp=739) 156 K/CU MM 150-450 MEAN PLATELET VOLUME (BEAKER) (test hvpc=635) 10.2 fL 9.4-12.4 NUCLEATED RED BLOOD CELLS (BEAKER) (test 0 /100 WBC 0-0 avwu=486) NEUTROPHILS RELATIVE PERCENT (BEAKER) (test 47 % racf=891) LYMPHOCYTES RELATIVE PERCENT (BEAKER) (test 37 % ipml=475) MONOCYTES RELATIVE PERCENT (BEAKER) (test 12 % qzxt=995) EOSINOPHILS RELATIVE PERCENT (BEAKER) (test 3 % jcjg=186) BASOPHILS RELATIVE PERCENT (BEAKER) (test 2 % efnt=341) NEUTROPHILS ABSOLUTE COUNT (BEAKER) (test 2.66 K/ L 1.78-5.38 sijz=468) LYMPHOCYTES ABSOLUTE COUNT (BEAKER) (test 2.09 K/ L 1.32-3.57 zuho=775) MONOCYTES ABSOLUTE COUNT (BEAKER) (test 0.70 K/ L 0.30-0.82 snjg=814) EOSINOPHILS ABSOLUTE COUNT (BEAKER) (test 0.15 K/ L 0.04-0.54 fnyh=165) BASOPHILS ABSOLUTE COUNT (BEAKER) (test 0.09 K/ L 0.01-0.08 yuwg=220) IMMATURE GRANULOCYTES-RELATIVE PERCENT (BEAKER) 1 % 0-1 (test olej=2478) TSH/FREE T4 IF [id number] 03:38:00 Test Item Value Reference Range Comments THYROID STIMULATING HORMONE (BEAKER) (test 2.01 uIU/mL 0.35-4.94 ugrf=267) VITAMIN B12 AND [id number] 03:38:00 Test Item Value Reference Range Comments VITAMIN B12 (BEAKER) (test wrtj=515) 1008 pg/mL 213-816 FOLATE (BEAKER) (test icfp=275) 8.4 ng/mL >=7.0 CREATINE KINASE (CK), TOTAL AND [id number] 01:03:00 Test Item Value Reference Range Comments CREATINE KINASE TOTAL (BEAKER) (test blxg=621) 66 U/L 29-200 CREATINE KINASE-MB (BEAKER) (test gfth=300) 1.4 ng/mL 0.0-6.6 CREATINE KINASE-MB INDEX (BEAKER) (test pypd=920) 2.1 % CK-MB Reference Range:<6.7 Normal6.7-10.0 Borderline>10.0 AbnormalTROPONIN [id number] 01:03:00 Test Item Value Reference Range Comments TROPONIN I (BEAKER) (test xnol=393) 0.02 ng/mL 0.00-0.03 Troponin I (TnI) levels [...] acute neurological disease, and persistent tachyarrhythmia.BASIC METABOLIC [id number] 00:56:00 Test Item Value Reference Range Comments SODIUM (BEAKER) (test 136 meq/L 136-145 qfyo=987) POTASSIUM (BEAKER) (test 3.9 meq/L 3.5-5.1 dpay=535) CHLORIDE (BEAKER) (test 104 meq/L 98-107 bajp=257) CO2 (BEAKER) (test 24 meq/L 22-29 izqz=637) BLOOD UREA NITROGEN 14 mg/dL 7-21 (BEAKER) (test xgin=184) CREATININE (BEAKER) (test 0.87 mg/dL 0.57-1.25 lzbz=925) GLUCOSE RANDOM (BEAKER) 104 mg/dL 70-105 (test jozt=377) CALCIUM (BEAKER) (test 9.2 mg/dL 8.4-10.2 mrkf=025) EGFR (BEAKER) (test 87 mL/min/1.73 sq m ESTIMATED GFR IS NOT agoa=5493) ACCURATE CREATININE CLEARANCE IN PREDICTING GLOMERULAR FILTRATION RATE. ESTIMATED GFR IS NOT APPLICABLE FOR DIALYSIS PATIENTS. PROTHROMBIN [id number] 00:27:00 Test Item Value Reference Range Comments PROTIME (BEAKER) (test owmq=706) 17.2 seconds 11.7-14.7 INR (BEAKER) (test ujcv=246) 1.4 <=5.9 RECOMMENDED COUMADIN/WARFARIN INR THERAPY RANGESSTANDARD DOSE: 2.0 - 3.0 Includes: PROPHYLAXIS forvenous thrombosis, systemic embolization; TREATMENT for venous thrombosis and/or pulmonary embolus.HIGH RISK: Target INR is 2.5-3.5 for patients with mechanical heart valves.CBC W/PLT COUNT & AUTO [id number] 00:01:00 Test Item Value Reference Range Comments WHITE BLOOD CELL COUNT (BEAKER) (test rnkp=264) 8.2 K/ L 3.5-10.5 RED BLOOD CELL COUNT (BEAKER) (test fzzt=936) 4.57 M/ L 4.63-6.08 HEMOGLOBIN (BEAKER) (test tfuf=699) 13.2 GM/DL 13.7-17.5 HEMATOCRIT (BEAKER) (test meva=678) 40.5 % 40.1-51.0 MEAN CORPUSCULAR VOLUME (BEAKER) (test nmzx=179) 88.6 fL 79.0-92.2 MEAN CORPUSCULAR HEMOGLOBIN (BEAKER) (test 28.9 pg 25.7-32.2 ynec=754) MEAN CORPUSCULAR HEMOGLOBIN CONC (BEAKER) (test 32.6 GM/DL 32.3-36.5 zpro=221) RED CELL DISTRIBUTION WIDTH (BEAKER) (test 15.9 % 11.6-14.4 hfrf=029) PLATELET COUNT (BEAKER) (test jetf=869) 198 K/CU MM 150-450 MEAN PLATELET VOLUME (BEAKER) (test qocq=445) 11.2 fL 9.4-12.4 NUCLEATED RED BLOOD CELLS (BEAKER) (test 0 /100 WBC 0-0 ehhx=804) NEUTROPHILS RELATIVE PERCENT (BEAKER) (test 57 % uogo=060) LYMPHOCYTES RELATIVE PERCENT (BEAKER) (test 28 % ivet=996) MONOCYTES RELATIVE PERCENT (BEAKER) (test 10 % gyyy=937) EOSINOPHILS RELATIVE PERCENT (BEAKER) (test 3 % gzbw=537) BASOPHILS RELATIVE PERCENT (BEAKER) (test 1 % nowf=690) NEUTROPHILS ABSOLUTE COUNT (BEAKER) (test 4.66 K/ L 1.78-5.38 fxwm=215) LYMPHOCYTES ABSOLUTE COUNT (BEAKER) (test 2.29 K/ L 1.32-3.57 lrea=038) MONOCYTES ABSOLUTE COUNT (BEAKER) (test 0.81 K/ L 0.30-0.82 rblt=647) EOSINOPHILS ABSOLUTE COUNT (BEAKER) (test 0.25 K/ L 0.04-0.54 tgqd=198) BASOPHILS ABSOLUTE COUNT (BEAKER) (test 0.10 K/ L 0.01-0.08 jxqc=895) IMMATURE GRANULOCYTES-RELATIVE PERCENT (BEAKER) 1 % 0-1 (test xwgq=3325)
--- NOTE | 2017-11-30 12:52 | RAD REPORT ---
EXAM DESCRIPTION: CT - Ct Stroke Brain Wo Cont - 11/30/2017 12:42 pm CLINICAL HISTORY: Numbness COMPARISON: August 2017 TECHNIQUE: Computed axial tomography of the head was obtained. IV contrast was not requested. All CT scans are performed using dose optimization technique as appropriate and may include automated exposure control or mA/KV adjustment according to patient size. FINDINGS: An intracranial bleed is not seen . The ventricles are normal in caliber. No extra-axial fluid collection is noted. Cerebellar tonsils appear to extend into the foramen magnum. This is unchanged from prior exams and p robably indicates cerebellar tonsillar ectopia. Fluid within the sinuses/ mastoids is not seen. IMPRESSION: No acute intracranial abnormality is seen. The examination was discussed with D[facility] emergency room approximately 12:40 p.m. 11/30/2017
--- NOTE | 2017-11-30 12:59 | RAD REPORT ---
EXAM DESCRIPTION: RAD - Chest Single View - 11/30/2017 12:52 pm CLINICAL HISTORY: Code stroke chest film, shortness of breath COMPARISON: September 30 TECHNIQUE: AP portable chest image was obtained 1249 hours . FINDINGS: Lungs are fibrotic without failure, mass or focal infiltrate. Fibrotic pattern is stable. Heart and vasculature are normal. No measurable pleural effusion and no pneumothorax. No gross bony a bnormality seen. No acute aortic finding. Left subclavian pacemaker remains in place. IMPRESSION: Fibrotic lung pattern similar to September examination. No acute finding.
[2017-11-30 13:05] LABS: Absolute Lymphocytes (CBC) 1.8 K/uL (0.7-4.9); Absolute Monocytes 0.6 K/uL (0.1-1.3); Basophils % 1.4 % (0-1.3); Hematocrit 39.9 % (39.6-49.0); Lymphocytes % 27.3 % (15.3-44.8); MCH 28.9 pg (27.0-35.0); MCV 85.5 fL (80-100); MPV 9.3 fL (7.6-11.3); RBC Red Blood Cell Count 4.67 M/uL (4.33-5.43)
[2017-11-30 13:08] LABS: Potassium 3.5 mmol/L (3.5-5.1)
[2017-11-30 13:09] LABS: Protime INR 1.08
--- NOTE | 2017-11-30 13:33 | ER ---
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 Transition of care: patient was not received from another setting of care. Onset of symptoms was November 30, 2017 at 11:30. 12:28 Method Of Arrival: Ambulatory hb 12:28 Acuity: WAYLON 2 hb 12:55 No acute neurological deficit is noted. Pre-hospital glucose is not applicable to this tw2 patient. Risk Assessment: Do you want to hurt yourself or someone else? Patient reports no desire to harm self or others. Initial Sepsis Screen: Does the patient meet any 2 criteria? No. Patient's initial sepsis screen is negative. Does the patient have a suspected source of infection? No. Patient's initial sepsis screen is negative. Care prior to arrival: None. Triage Assessment: 12:57 The onset of the patients symptoms was November 30, 2017 at 11:30. General: Appears tw2 uncomfortable. Neuro: Reports chest pain. Stroke Activation: Symptom onset < 3 hours Physician: Stroke Attending; Name: ; Notified At: ; Arrived At: Physician: Chief Stroke Resident; Name: ; Notified At: ; Arrived At: Physician: Stroke Resident; Name: ; Notified At: ; Arrived At: Physician: ED Attending; Name: ; Notified At: ; Arrived At: Physician: ED Resident; Name: ; Notified At: ; Arrived At: 12:55 Code stroke called at 1232 tw2 Historical: - Allergies: 12:31 NKDA; hb - Home Meds: 12:39 albuterol sulfate 2.5 mg /3 mL (0.083 %) Inhl nebu for Chronic Obstructive Pulmonary aa5 Disease [Active]; aspirin 81 mg Oral chew 1 tab once daily [Active]; atorvastatin 80 mg Oral tab 1 tab once daily [Active]; BRILINTA 90 mg Oral tab 1 tab 2 times per day [Active]; buspirone 15 mg Oral tab 1 tab 2 times per day [Active]; Hyzaar Oral [Active]; losartan-hydrochlorothiazide 100-25 mg oral tab [Active]; pentoxifylline 400 mg oral TbER [Active]; omeprazole 20 mg Oral cpDR 1 cap once daily for Gastroesophageal reflux [Active]; - PMHx: 12:31 Cholelithiasis; Hernia; enlarged prostate; Dementia; CVA; COPD; Hypertension; PR; TIA; hb - PSHx: 12:31 L leg bypass; pacemaker; hear stent; hb - Immunization history:: Adult Immunizations up to date. - Social history:: Smoking status: Patient uses tobacco products, smokes one pack cigarettes per day. - Ebola Screening: : Patient denies travel to an Ebola-affected area in the 21 days before illness onset. Screenin:55 Abuse screen: Denies threats or abuse. Nutritional screening: No deficits noted. tw2 Tuberculosis screening: No symptoms or risk factors identified. Fall Risk None identified. Assessment: 12:47 General: Appears in no apparent distress. Behavior is calm, cooperative, appropriate tw2 for age. Pain: Complains of pain in chest. Neuro: Level of Consciousness is awake, alert, obeys commands, Oriented to person, place, time, situation. Cardiovascular: Reports chest pain, Heart tones S1 S2 Capillary refill < 3 seconds Patient's skin is warm and dry. Respiratory: Airway is patent Respiratory effort is even, unlabored, Breath sounds are clear bilaterally. GI: No signs and/or symptoms were reported involving the gastrointestinal system. Abdomen is flat, Bowel sounds present X 4 quads. : No signs and/or symptoms were reported regarding the genitourinary system. EENT: No signs and/or symptoms were reported regarding the EENT system. Derm: No signs and/or symptoms reported regarding the dermatologic system. Musculoskeletal: Range of motion: intact in all extremities. 12:51 Patient has been NPO before screening. The patient is alert, and able to follow tw2 commands. The patient does not exhibit slurred or garbled speech. The patient is not exhibiting difficulty speaking. The patient is exhibiting difficulty understanding words. The patient is able to swallow own secretions with no drooling or need for suction. The patient did not tolerate one teaspoon of water. Drooling, immediate coughing, gurgling, or clearing of the throat was noted. Bedside swallow screening discontinued. Patient kept NPO until cleared by Speech Therapy or Physician. The patient failed the bedside swallow screening. The patient will be kept NPO until cleared by Speech Therapy or Physician. Provider notified of bedside swallow screening results: Cameron Alonso MD. 12:54 eval stopped after tsp water, pt started coughing states he feels like he is having tw2 difficult swallowing. 12:55 Reassessment: Consult with Stroke team at [facility]. iw 13:40 Reassessment: 2nd call to [facility] neurologist to verify alteplase administration with tw2 Brilinta. 13:52 T-PA (Activase) Screening: Indications: Consent for thrombolytic therapy: Yes. tw2 Vital Signs: 12:30 BP 138 / 78; Pulse 84; Resp 20; Temp 98; Pulse Ox 100% on R/A; Pain 4/10; hb 13:02 BP 127 / 73; Pulse 75; Resp 17; Pulse Ox 100% on R/A; tw2 13:25 Weight 68.49 kg; iw 13:26 Weight 68.04 kg (R); tw2 13:50 BP 161 / 80; Pulse 68; Resp 17; Pulse Ox 100% on R/A; tw2 14:22 BP 144 / 67; Pulse 82; Resp 17; Pulse Ox 100% on R/A; tw2 14:45 BP 150 / 77; Pulse 68; Resp 16; Pulse Ox 100% on R/A; tw2 NIH Stroke Scale Scores: 12:40 NIHSS Score: 2 tw2 14:38 NIHSS Score: 5 gs ED Course: 12:21 Patient arrived in ED. mr 12:21 Yung Thomas MD is Private Physician. mr 12:30 Triage completed. hb 12:31 Gi Angelo, JAVAN is Primary Nurse. tw2 12:31 Arm band placed on left wrist. hb 12:32 Cameron Alonso MD is Attending Physician. gs 12:[address] with JAVAN Lunsford at this time. tw2 12:41 Placed in gown. Bed in low position. Adult w/ patient. 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 Pulse ox on. tw2 NIBP on. Warm blanket given. 12:43 CT Stroke Brain w/o Contrast In Process Unspecified. EDMS 12:45 EKG done, by a/c tech. reviewed by Cameron Alonso MD. at1 12:47 Inserted saline lock: 22 gauge in left hand, using aseptic technique. aa5 12:48 Initial lab(s) drawn, by me, sent to lab. Inserted saline lock: 22 gauge in right jb1 antecubital area, using aseptic technique. Blood collected. 12:49 X-ray completed. Portable x-ray completed in exam room. Patient tolerated procedure sw well. 12:51 Stroke CXR 1 View In Process Unspecified. EDMS 13:21 Thorax W/ Con In Process Unspecified. EDMS 14:50 No provider procedures requiring assistance completed. Patient transferred, IV remains tw2 in place. Administered Medications: 13:52 Drug: Alteplase (Bolus for Stroke) - Alteplase 0.09 mg/kg {Co-Signature: lawrence (Alondra Patino RN).} Route: IVP; Infused Over: 1 mins; Site: left hand; 14:26 Follow up: Response: No adverse reaction tw2 13:52 Drug: Alteplase 0.09 mg/kg {Co-Signature: lawrence (Alondra Patino RN).} Route: IV; Rate: tw2 0.09 calculated rate; Site: left hand; 14:46 Follow up: IV Status: Infusion continued upon transfer tw2 Point of Care Testing: Blood Glucose: 12:41 Blood Glucose: 107 mg/dL; tw2 Ranges: Outcome: 13:32 ER care complete, transfer ordered by 14:50 Transferred by ground EMS to [facility]. tw2 14:50 Condition: stable 14:50 Instructed on the need for transfer. 14:51 Patient left the ED. tw2 NIH Stroke Scale - NIH Stroke Score Date: 11/30/2017 Time: 12:40 Total Score = 2 1a. Level of Consciousness (LOC) - 0(Alert) 1b. Level of Consciousness (LOC) (Year \T\ Age) - 0(Both) 1c. LOC Commands (Open \T\ Closes Eyes/Hse Coordinator) - 0(Both) 2. Best Gaze (Lateral Gaze Paresis) - 0(Normal) 3. Visual Field Loss - 0(No visual loss) 4. Facial Palsy - 1(Minor Paralysis) 5a. Left Arm: Motor (10-second hold) - 0(No drift) 5b. Right Arm: Motor (10-second hold) - 1(Drift) 6a. Left Leg: Motor (5-second hold - always test supine) - 0(No drift) 6b. Right Leg: Motor (5-second hold - always test supine) - 0(No drift) 7. Limb Ataxia (finger/nose \T\ heel/del valle - test with eyes open) - 0(Absent) 8. Sensory Loss (pinprick arms/legs/face) - 0(Normal) 9. Best Language: Aphasia (description/naming/reading) - 0(No aphasia) 10. Dysarthria (speech clarity - read or repeat words) - 0(Normal) 11. Extinction and Inattention (visual/tactile/auditory/spatial/personal) - 0(No abnormality) Initials: tw2 NIH Stroke Scale - NIH Stroke Score Date: 11/30/2017 Time: 14:38 Total Score = 5 1a. Level of Consciousness (LOC) - 0(Alert) 1b. Level of Consciousness (LOC) (Year \T\ Age) - 0(Both) 1c. LOC Commands (Open \T\ Closes Eyes/Hse Coordinator) - 0(Both) 2. Best Gaze (Lateral Gaze Paresis) - 0(Normal) 3. Visual Field Loss - 0(No visual loss) 4. Facial Palsy - 0(Normal) 5a. Left Arm: Motor (10-second hold) - 0(No drift) 5b. Right Arm: Motor (10-second hold) - 1(Drift) 6a. Left Leg: Motor (5-second hold - always test supine) - 0(No drift) 6b. Right Leg: Motor (5-second hold - always test supine) - 1(Drift) 7. Limb Ataxia (finger/nose \T\ heel/del valle - test with eyes open) - 2(Present in two limbs) 8. Sensory Loss (pinprick arms/legs/face) - 1(Mild to moderate loss) 9. Best Language: Aphasia (description/naming/reading) - 0(No aphasia) 10. Dysarthria (speech clarity - read or repeat words) - 0(Normal) 11. Extinction and Inattention (visual/tactile/auditory/spatial/personal) - 0(No abnormality) Initials: Signatures: Dispatcher [employer] EDKvng Arora1 Amber Colbert mr Birgit Ragsdale, RN RN iw Sunshine Ndiaye, RN RN aa5 Basilia Castelan, ad operations associate EKG Tat1 Vy Nolasco Heather, RN RN Gi Angelo RN RN tw2 Cameron Alonso MD MD Alondra Patino RN dm5 Corrections: (The following items were deleted from the chart) 13:27 13:26 68.49 kg Reported; tw2 tw2
--- NOTE | 2017-11-30 13:33 | EDPHYS ---
Physician Documentation [facility] Name: Maurice Morfin Age: 67 yrs Sex: Male : 1950 Arrival Date: 11/30/2017 Time: 12:21 Bed 3 Private MD: Yung Thomas ED Physician Cameron Alonso HPI: 11/30 12:35 This 67 yrs old Male presents to ER via Ambulatory with complaints of High gs Blood Pressure, Facial Numbness. 14:38 The patient presents to the emergency department with weakness of the right upper gs extremity, right lower extremity, right side of the face, a swallowing problem, difficulty. Onset: The symptoms/episode began/occurred today, at 11:30. Associated signs and symptoms: Pertinent positives: chest pain sharp going through to back, Pertinent negatives: chills, dizziness. Severity of symptoms: At their worst the symptoms were severe in the emergency department the symptoms are unchanged. The patient has experienced similar episodes in the past, a few times. Historical: - Allergies: 12:31 NKDA; hb - Home Meds: 12:39 albuterol sulfate 2.5 mg /3 mL (0.083 %) Inhl nebu for Chronic Obstructive Pulmonary aa5 Disease [Active]; aspirin 81 mg Oral chew 1 tab once daily [Active]; atorvastatin 80 mg Oral tab 1 tab once daily [Active]; BRILINTA 90 mg Oral tab 1 tab 2 times per day [Active]; buspirone 15 mg Oral tab 1 tab 2 times per day [Active]; Hyzaar Oral [Active]; losartan-hydrochlorothiazide 100-25 mg oral tab [Active]; pentoxifylline 400 mg oral TbER [Active]; omeprazole 20 mg Oral cpDR 1 cap once daily for Gastroesophageal reflux [Active]; - PMHx: 12:31 Cholelithiasis; Hernia; enlarged prostate; Dementia; CVA; COPD; Hypertension; OR; TIA; hb - PSHx: 12:31 L leg bypass; pacemaker; hear stent; hb - Immunization history:: Adult Immunizations up to date. - Social history:: Smoking status: Patient uses tobacco products, smokes one pack cigarettes per day. - Ebola Screening: : Patient denies travel to an Ebola-affected area in the 21 days before illness onset. ROS: 14:38 All other systems are negative. gs Exam: 14:38 Head/Face: Normocephalic, atraumatic. Eyes: Pupils equal round and reactive to light, gs extra-ocular motions intact. Lids and lashes normal. Conjunctiva and sclera are non-icteric and not injected. Cornea within normal limits. Periorbital areas with no swelling, redness, or edema. ENT: Nares patent. No nasal discharge, no septal abnormalities noted. Tympanic membranes are normal and external auditory canals are clear. Oropharynx with no redness, swelling, or masses, exudates, or evidence of obstruction, uvula midline. Mucous membranes moist. Neck: Trachea midline, no thyromegaly or masses palpated, and no cervical lymphadenopathy. Supple, full range of motion without nuchal rigidity, or vertebral point tenderness. No Meningismus. Chest/axilla: Normal chest wall appearance and motion. Nontender with no deformity. No lesions are appreciated. Cardiovascular: Regular rate and rhythm with a normal S1 and S2. No gallops, murmurs, or rubs. Normal PMI, no JVD. No pulse deficits. Respiratory: Lungs have equal breath sounds bilaterally, clear to auscultation and percussion. No rales, rhonchi or wheezes noted. No increased work of breathing, no retractions or nasal flaring. Abdomen/GI: Soft, non-tender, with normal bowel sounds. No distension or tympany. No guarding or rebound. No evidence of tenderness throughout. Back: No spinal tenderness. No costovertebral tenderness. Full range of motion. Skin: Warm, dry with normal turgor. Normal color with no rashes, no lesions, and no evidence of cellulitis. MS/ Extremity: Pulses equal, no cyanosis. Neurovascular intact. Full, normal range of motion. 14:38 Constitutional: The patient appears alert, awake. 14:38 ECG was reviewed by the Attending Physician. Vital Signs: 12:30 BP 138 / 78; Pulse 84; Resp 20; Temp 98; Pulse Ox 100% on R/A; Pain 4/10; hb 13:02 BP 127 / 73; Pulse 75; Resp 17; Pulse Ox 100% on R/A; tw2 13:25 Weight 68.49 kg; iw 13:26 Weight 68.04 kg (R); tw2 13:50 BP 161 / 80; Pulse 68; Resp 17; Pulse Ox 100% on R/A; tw2 14:22 BP 144 / 67; Pulse 82; Resp 17; Pulse Ox 100% on R/A; tw2 14:45 BP 150 / 77; Pulse 68; Resp 16; Pulse Ox 100% on R/A; tw2 NIH Stroke Scale Scores: 12:40 NIHSS Score: 2 tw2 14:38 NIHSS Score: 5 gs MDM: 12:46 Patient medically screened. gs 14:38 Data reviewed: vital signs, nurses notes. ED course: cva,ic bleed,tia,tad. gs 14:59 ED course: delay in tpa as pt with severe chest pain sharp radiated to back had to r/o gs aortic dissection which is contraindication to tpa. agreed by stroke neurologist.. 11/30 12:35 Order name: Basic Metabolic Panel; Complete Time: 13:11 hb 11/30 12:35 Order name: CBC with Diff; Complete Time: 13:11 hb 11/30 12:35 Order name: Protime (+inr); Complete Time: 13:11 hb 11/30 12:35 Order name: Ptt, Activated; Complete Time: 13:11 hb 11/30 12:35 Order name: CT Stroke Brain w/o Contrast; Complete Time: 13:08 hb 11/30 13:27 Order name: Glucose, Ancillary Testing; Complete Time: 14:36 EDMS 11/30 12:35 Order name: Stroke CXR 1 View; Complete Time: 13:08 hb 11/30 12:35 Order name: EKG; Complete Time: 12:36 hb 11/30 12:35 Order name: Accucheck; Complete Time: 12:48 hb 11/30 12:35 Order name: Cardiac monitoring; Complete Time: 12:48 hb 11/30 13:20 Order name: Thorax W/ Con; Complete Time: 14:36 EDMS 11/30 12:35 Order name: EKG - Nurse/Tech; Complete Time: 12:48 hb 11/30 12:35 Order name: IV Saline Lock; Complete Time: 12:48 hb 11/30 12:35 Order name: Labs collected and sent; Complete Time: 12:49 hb 11/30 12:35 Order name: NPO; Complete Time: 12:49 hb 11/30 12:35 Order name: O2 Per Protocol; Complete Time: 12:49 hb 11/30 12:35 Order name: O2 Sat Monitoring; Complete Time: 12:49 hb 11/30 12:35 Order name: Stroke Swallow Screen; Complete Time: 13:06 hb EC:38 Rate is 79 beats/min. Rhythm is regular with PACs. [place] interval is normal. QRS interval gs is normal. T waves are Normal. No ST changes noted. Clinical impression: Abnormal EKG without significant change. Interpreted by me. Administered Medications: 13:52 Drug: Alteplase (Bolus for Stroke) - Alteplase 0.09 mg/kg {Co-Signature: lawrence (Alondra Patino RN).} Route: IVP; Infused Over: 1 mins; Site: left hand; 14:26 Follow up: Response: No adverse reaction tw2 13:52 Drug: Alteplase 0.09 mg/kg {Co-Signature: lawrence (Alondra Patino RN).} Route: IV; Rate: tw2 0.09 calculated rate; Site: left hand; 14:46 Follow up: IV Status: Infusion continued upon transfer tw2 Point of Care Testing: Blood Glucose: 12:41 Blood Glucose: 107 mg/dL; tw2 Ranges: Critical Glucose Levels:Adult <50 mg/dl or >400 mg/dl <40 mg/dl or >180 mg/dl Disposition: 11/30/17 13:[address] [facility]. Diagnosis is Cerebral infarction. - Reason for transfer: Higher level of care. - Accepting physician is bershad. - Condition is Stable. - Problem is new. - Symptoms have improved. Critical care time excluding procedures: 14:38 Critical care time: Bedside Care: 10 minutes, Consultation: 10 minutes, Family gs Intervention: 10 minutes. Total time: 30 minutes NIH Stroke Scale - NIH Stroke Score Date: 11/30/2017 Time: 12:40 Total Score = 2 1a. Level of Consciousness (LOC) - 0(Alert) 1b. Level of Consciousness (LOC) (Year \T\ Age) - 0(Both) 1c. LOC Commands (Open \T\ Closes Eyes/Coke Production Heater) - 0(Both) 2. Best Gaze (Lateral Gaze Paresis) - 0(Normal) 3. Visual Field Loss - 0(No visual loss) 4. Facial Palsy - 1(Minor Paralysis) 5a. Left Arm: Motor (10-second hold) - 0(No drift) 5b. Right Arm: Motor (10-second hold) - 1(Drift) 6a. Left Leg: Motor (5-second hold - always test supine) - 0(No drift) 6b. Right Leg: Motor (5-second hold - always test supine) - 0(No drift) 7. Limb Ataxia (finger/nose \T\ heel/del valle - test with eyes open) - 0(Absent) 8. Sensory Loss (pinprick arms/legs/face) - 0(Normal) 9. Best Language: Aphasia (description/naming/reading) - 0(No aphasia) 10. Dysarthria (speech clarity - read or repeat words) - 0(Normal) 11. Extinction and Inattention (visual/tactile/auditory/spatial/personal) - 0(No abnormality) Initials: tw2 NIH Stroke Scale - NIH Stroke Score Date: 11/30/2017 Time: 14:38 Total Score = 5 1a. Level of Consciousness (LOC) - 0(Alert) 1b. Level of Consciousness (LOC) (Year \T\ Age) - 0(Both) 1c. LOC Commands (Open \T\ Closes Eyes/Coke Production Heater) - 0(Both) 2. Best Gaze (Lateral Gaze Paresis) - 0(Normal) 3. Visual Field Loss - 0(No visual loss) 4. Facial Palsy - 0(Normal) 5a. Left Arm: Motor (10-second hold) - 0(No drift) 5b. Right Arm: Motor (10-second hold) - 1(Drift) 6a. Left Leg: Motor (5-second hold - always test supine) - 0(No drift) 6b. Right Leg: Motor (5-second hold - always test supine) - 1(Drift) 7. Limb Ataxia (finger/nose \T\ heel/del valle - test with eyes open) - 2(Present in two limbs) 8. Sensory Loss (pinprick arms/legs/face) - 1(Mild to moderate loss) 9. Best Language: Aphasia (description/naming/reading) - 0(No aphasia) 10. Dysarthria (speech clarity - read or repeat words) - 0(Normal) 11. Extinction and Inattention (visual/tactile/auditory/spatial/personal) - 0(No abnormality) Initials: gs Signatures: Dispatcher [employer] EDMS Sunshine Ndiaye RN RN aa5 Isatu Keyes, RN RN Gi Angelo RN RN tw2 Cameron Alonso MD MD gs Alondra Patino RN dm5 Corrections: (The following items were deleted from the chart) 13:20 13:03 Chest Angio+CT.RAD.BRZ ordered. [facility] 14:51 13:32 11/30/2017 13:[address] [facility]. tw2 Diagnosis is Cerebral infarction. Reason for transfer: Higher level of care. Accepting physician is bershad. Condition is Stable. Problem is new. Symptoms have improved. gs
[2017-11-30] MEDS ORDERED: ALTEPLASE 100 ML IV ONE (13:35)
[2017-11-30] MEDS ORDERED: NA CHLORIDE 0.9% 500 ML ONE (13:36)
--- NOTE | 2017-11-30 13:45 | RAD REPORT ---
EXAM DESCRIPTION: CT - Thorax W/ Con - 11/30/2017 1:20 pm CLINICAL HISTORY: Chest pain, difficulty swallowing COMPARISON: Chest films same date, CT chest May 2017 TECHNIQUE: Dynamically enhanced 5 mm thick images of the chest were obtained during administration o f 100 mL non-ionic IV contrast. All CT scans are performed using dose optimization technique as appropriate and may include automated exposure control or mA/KV adjustment according to patient size. FINDINGS: Bilateral apical scarring changes are present. Lung harding are hyperexpanded and fibrotic with scattered bulla and bleb formation. This COPD pattern is similar to the May examination. No ac ak chin infiltrate or mass. No pleural thickening or pleural effusion. No pneumothorax. No chest wall mas s or abnormal axillary lymphadenopathy. No abnormal mediastinal or hilar mass or lymphadenopathy seen. No pericardial thickening or effusion. Aorta and pulmonary arterial tree enhance normally. No endobronchial lesion identified. No esophageal dilatation, wall thickening or mass identifiable. Patient has a very minimal hiatal her melissa. No abnormality seen that would explain difficulty swallowing. IMPRESSION: Prominent COPD pattern not clearly different from May 2017. Small hiatal hernia with no suspicious esophageal finding.
[2017-11-30 15:12] VITALS: TEMP 98; O2SAT 100
[2017-11-30 15:17] VITALS: BP 150/77
--- NOTE | 2017-11-30 15:26 | EKG ---
Test Date: 2017-11-30 Test Time: 12:40:36 Grounds Cleaner: LIZBETH MEASUREMENT RESULTS: Intervals: Rate: 79 [place]: 146 QRSD: 76 QT: 380 QTc: 435 [place]: P: 67 [place]: 146 QRS: 28 T: 79 INTERPRETIVE STATEMENTS: Sinus rhythm with premature atrial complexes Nonspecific ST and T wave abnormality Abnormal ECG Compared to ECG 09/30/2017 14:20:24 Atrial premature complex(es) now present ST (T wave) deviation now present Electronically Signed On 11-30-17 15:25:19 CDT by Luis Carlos Quevedo
== END 2017-11-30 14:51 | disposition short-term general hospital (02) ==
LOC: ER 12:18
DX: I63.9 Cerebral infarction, unspecified (principal); I10 Essential (primary) hypertension; R29.702 NIHSS score 2; J44.9 Chronic obstructive pulmonary disease, unspecified; I25.2 Old myocardial infarction; F17.210 Nicotine dependence, cigarettes, uncomplicated; Z79.82 Long term (current) use of aspirin; Z95.0 Presence of cardiac pacemaker; Z95.818 Presence of other cardiac implants and grafts
CPT/HCPCS: 36415; 70450; 71045; 71260; 80048; 82962; 85025; 85610; 85730; 93005; 96374; J2997; Q9967; 92977; 96365; 99285

== ENCOUNTER 2018-02-14 09:18 | Emergency (ER) | payer OTHER ==
--- OUTSIDE RECORDS SUMMARY | 2018-02-14 09:29 | XMS REPORT | Clinical Summary ---
:1950 Demographics Address [address] [place] [address] Home Phone Mobile Phone Preferred Language Spanish Marital Status Unknown Gnosticism Affiliation Unknown Race White Ethnic Group Not or Author Organization [facility] Address [address] [place] [address] Support Name Relationship Address Phone Mami Pena [address] [place] [address] Acacia Pena [address] [place] [address] Care Team Providers Name Role Phone Yung Thomas [place] Primary Care Provider Allergies No Known Allergies Medications Medication Sig Dispensed Refills Start End Status Date Date albuterol (PROVENTIL) Take 2.5 mg by 0 Active 2.5 mg/0.5 mL Nebu nebulization 4 nebulizer solution (four) times daily. ipratropium (ATROVENT) Take 500 mcg by 0 Active 0.02 % nebulizer nebulization solution every 6 (six) hours. metoprolol (LOPRESSOR) Take 25 mg by 0 Active 25 MG tablet mouth 2 (two) times daily. omeprazole (PRILOSEC) 20 Take 20 mg by 0 Active MG capsule mouth daily. budesonide-formoterol Inhale 2 puffs 0 Active (SYMBICORT) 160-4.5 by mouth via mcg/actuation inhaler inhaler 2 (two) times daily. acetaminophen-codeine Take 1 tablet 0 Active (TYLENOL #3) 300-30 mg by mouth every per tablet 4 (four) hours as needed for Pain. metoprolol (LOPRESSOR) Take 25 mg by 0 Active 25 MG tabletIndications: mouth 2 (two) hypertension times daily. aspirin 81 MG EC Take 81 mg by 0 Active tabletIndications: mouth daily. myocardial infarction prevention aspirin 81 MG chewable Take 1 tablet 90 tablet 3 12/04/19 Active tablet (81 mg total) 18 019 by mouth daily. atorvastatin (LIPITOR) Take 0.5 90 tablet 3 12/03/19 Active 80 MG tablet tablets (40 mg 18 019 total) by mouth nightly. clopidogrel (PLAVIX) 75 Take 1 tablet 90 tablet 3 12/03/19 Active mg tablet (75 mg total) 18 019 by mouth daily. aspirin 325 MG tablet Take 325 mg by 0 Discontinued mouth daily. 018 clopidogrel (PLAVIX) 75 Take 75 mg by 0 Discontinued mg tablet mouth daily. 018 pantoprazole (PROTONIX) Take 40 mg by 0 Discontinued 40 MG tabletIndications: mouth daily. 018 gastroesophageal reflux disease atorvastatin (LIPITOR) Take 40 mg by 0 Discontinued 40 MG tabletIndications: mouth daily. 018 hypercholesterolemia cephalexin (KEFLEX) 500 Take 500 mg by 0 Discontinued MG capsuleIndications: mouth 3 (three) 018 left lung pneumonia times daily. codeine-guaifenesin Take 5 mLs by 0 Discontinued (GUAIFENESIN AC) 10-100 mouth every 4 018 mg/5 mL (four) hours as liquidIndications: needed for Cough, left pneumonia Cough. clopidogrel (PLAVIX) 75 Take 75 mg by 0 Discontinued mg tabletIndications: mouth daily. 018 since pacemaker 5 years ago atorvastatin (LIPITOR) Take 1 tablet 90 tablet 0 03/14/19 Discontinued 80 MG tablet (80 mg total) 18 018 by mouth nightly. Active Problems Problem Noted Date Ischemic stroke 11/30/2017 S/P admn tPA in diff fac w/n last 24 hr bef adm to crnt fac 11/30/2017 Essential hypertension 03/12/2017 Received tissue plasminogen activator (t-PA) less than 24 hours prior to 03/12 arrival Acute ischemic stroke 03/11/2017 HLD (hyperlipidemia) 01/17/2016 Peripheral vascular disease 01/14/2016 Postoperative anemia 01/14/2016 Coronary artery disease involving [place] coronary artery 01/10/2016 PAD (peripheral artery disease) 01/10/2016 HTN (hypertension) 01/10/2016 Iliac artery stenosis, bilateral 01/10/2016 Unstable angina 01/10/2016 COPD (chronic obstructive pulmonary disease) 01/10/2016 Tobacco abuse 01/10/2016 ACS (acute coronary syndrome) 01/10/2016 Encounters Date Type Specialty Care Team Description 11/30/2017 - Hospital Encounter Intensive Care Eze Gil ACS (acute coronary 12/02/2017 MD Jose syndrome) ([facility]) 03/11/2017 - Hospital Encounter General Internal Corbin Garcia Acute ischemic stroke ([facility]); 03/14/2017 Medicine MD Doug Received tissue plasminogen activator (t-PA) less than 24 hours prior to arrival; Stephanie Lugo Essential hypertension; MD Addie Peripheral vascular disease ([facility]); Tobacco abuse; Tobacco abuse counseling after 02/13/2017 Social History Tobacco Use Types Packs/Day Years Used Date Current Every Day Smoker Cigarettes 0.5 50 Smokeless Tobacco: Never Used Tobacco Cessation: Ready to Quit: No; Counseling Given: No Comments: 5-6 cigarettes a day Alcohol Use Drinks/Week oz/Week Comments No Sex Assigned at Date Recorded Not on file Job Start Date Occupation Industry Not on file Not on file Not on file Travel History Travel Start Travel End No recent travel history available. Last Filed Vital Signs Vital Sign Reading Time Taken Blood Pressure 137/67 12/02/2017 12:00 PM CDT Pulse 76 12/02/2017 12:00 PM CDT Temperature 36.7 C (98 F) 12/02/2017 8:00 AM CDT Respiratory Rate 34 12/02/2017 12:00 PM CDT Oxygen Saturation 96% 12/02/2017 12:00 PM CDT Inhaled Oxygen Concentration - - Weight 67.1 kg (147 lb 14.9 oz) 11/30/2017 4:30 PM CDT Height 175.3 cm (5' 9") 11/30/2017 4:30 PM CDT Body Mass Index 21.85 11/30/2017 4:30 PM CDT Plan of Treatment Health Maintenance Due Date Last Done Comments INFLUENZA VACCINE 12/06/2017 Implants Implanted Type Area Welfare Officer Device Shelf Model / Identifier Expiration Serial / Date Lot Grft Eptfe-Heparin Rng [id number] - [id number] Graft/Pa N/A: MARIELENA PRESCOTT & 09/01/2019 [id number] / Implanted: Qty: 1 on 01/13/2016 by Oniel Smith MD [facility] Arterial ASSC: MED PRDT [id number] / Procedures Procedure Name Priority Date/Time Associated Comments Diagnosis ARRYTHMIA IMPLANT 02/03/2018 2:53 REPORT - SCAN PM GROUP UNDERWRITER ARRYTHMIA IMPLANT 12/25/2017 8:00 REPORT - SCAN AM CDT ARRYTHMIA IMPLANT 12/06/2017 2:00 REPORT - SCAN PM CDT RHYTHM STRIP - SCAN 12/06/2017 2:00 PM CDT CBC W/PLT COUNT & AUTO Routine 12/02/2017 3:11 Results for this DIFFERENTIAL AM CDT procedure are in the results section. TSH/FREE T4 IF Routine 12/02/2017 3:11 Results for this INDICATED AM CDT procedure are in the results section. CBC W/PLT COUNT & AUTO Routine 12/02/2017 3:11 Results for this DIFFERENTIAL AM CDT procedure are in the results section. BASIC METABOLIC PANEL Routine 12/02/2017 3:11 Results for this (7) AM CDT procedure are in the results section. CAROTID DOPPLER Routine 12/01/2017 10:12 Results for this BILATERAL PM CDT procedure are in the results section. TROPONIN I Routine 12/01/2017 8:17 Results for this PM CDT procedure are in the results section. ECHOCARDIOGRAM REPORT 12/01/2017 6:50 - SCAN PM CDT CT BRAIN WITHOUT IV STAT 12/01/2017 6:30 Results for this CONTRAST PORTABLE PM CDT procedure are in the results section. TRANSFUSION SERVICE 12/01/2017 6:03 REPORT - SCAN PM CDT POTASSIUM Routine 12/01/2017 3:53 Results for this PM CDT procedure are in the results section. TROPONIN I Routine 12/01/2017 3:53 Results for this PM CDT procedure are in the results section. ECG 12-LEAD Routine 12/01/2017 11:15 Results for this AM CDT procedure are in the results section. PACEMAKER CHECK Routine 12/01/2017 10:56 Results for this AM CDT procedure are in the results section. 2D ECHO W/ DOPPLER Routine 12/01/2017 9:37 Results for this (CW/PW/COLOR) AM CDT procedure are in the results section. PHOSPHORUS STAT 12/01/2017 8:14 Results for this AM CDT procedure are in the results section. MAGNESIUM STAT 12/01/2017 8:14 Results for this AM CDT procedure are in the results section. TROPONIN I Routine 12/01/2017 8:14 Results for this AM CDT procedure are in the results section. ECG 12-LEAD Routine 12/01/2017 7:44 Results for this AM CDT procedure are in the results section. CBC W/PLT COUNT & AUTO Routine 12/01/2017 3:33 Results for this DIFFERENTIAL AM CDT procedure are in the results section. HEMOGLOBIN A1C Routine 12/01/2017 3:33 Results for this AM CDT procedure are in the results section. CBC W/PLT COUNT & AUTO Routine 12/01/2017 3:33 Results for this DIFFERENTIAL AM CDT procedure are in the results section. LIPID PANEL Routine 12/01/2017 3:33 Results for this AM CDT procedure are in the results section. BASIC METABOLIC PANEL Routine 12/01/2017 3:33 Results for this (7) AM CDT procedure are in the results section. ECG 12-LEAD Routine 11/30/2017 6:19 Results for this PM CDT procedure are in the results section. CBC W/PLT COUNT & AUTO Routine 11/30/2017 5:41 Results for this DIFFERENTIAL PM CDT procedure are in the results section. TYPE AND SCREEN, Routine 11/30/2017 5:41 Results for this AUTOMATED PM CDT procedure are in the results section. VITAMIN B12 AND FOLATE Routine 11/30/2017 5:41 Results for this PM CDT procedure are in the results section. HEMOGLOBIN A1C AP Routine 11/30/2017 5:41 Results for this PM CDT procedure are in the results section. TROPONIN I Routine 11/30/2017 5:41 Results for this PM CDT procedure are in the results section. CBC W/PLT COUNT & AUTO Routine 11/30/2017 5:41 Results for this DIFFERENTIAL PM CDT procedure are in the results section. BASIC METABOLIC PANEL Routine 11/30/2017 5:41 Results for this (7) PM CDT procedure are in the results section. ARRYTHMIA IMPLANT 03/16/2017 11:41 REPORT - SCAN AM GROUP UNDERWRITER RHYTHM STRIP - SCAN 03/16/2017 11:41 AM GROUP UNDERWRITER PERMANENT LAB REPORT - 03/15/2017 11:00 SCAN AM GROUP UNDERWRITER RHYTHM STRIP - SCAN 03/15/2017 11:00 AM GROUP UNDERWRITER CARDIAC CATH REPORT - 03/15/2017 11:00 SCAN AM GROUP UNDERWRITER VASCULAR DIAGRAM -SCAN 03/15/2017 11:00 AM GROUP UNDERWRITER RHYTHM STRIP - SCAN 03/15/2017 11:00 AM GROUP UNDERWRITER VASCULAR DIAGRAM -SCAN 03/15/2017 11:00 AM GROUP UNDERWRITER CBC W/PLT COUNT & AUTO Routine 03/14/2017 4:53 Results for this DIFFERENTIAL AM GROUP UNDERWRITER procedure are in the results section. CBC W/PLT COUNT & AUTO Routine 03/14/2017 4:53 Results for this DIFFERENTIAL AM GROUP UNDERWRITER procedure are in the results section. BASIC METABOLIC PANEL Routine 03/14/2017 4:53 Results for this (7) AM GROUP UNDERWRITER procedure are in the results section. CBC W/PLT COUNT & AUTO Routine 03/13/2017 4:57 Results for this DIFFERENTIAL AM GROUP UNDERWRITER procedure are in the results section. CBC W/PLT COUNT & AUTO Routine 03/13/2017 4:57 Results for this DIFFERENTIAL AM GROUP UNDERWRITER procedure are in the results section. ECHOCARDIOGRAM REPORT 03/12/2017 4:57 - SCAN PM GROUP UNDERWRITER CT BRAIN WITHOUT IV Routine 03/12/2017 3:29 Results for this CONTRAST PM GROUP UNDERWRITER procedure are in the results section. TROPONIN I STAT 03/12/2017 2:28 Results for this PM GROUP UNDERWRITER procedure are in the results section. ECG 12-LEAD STAT 03/12/2017 2:16 Results for this PM GROUP UNDERWRITER procedure are in the results section. 2D ECHO W/ DOPPLER Routine 03/12/2017 10:53 Results for this (CW/PW/COLOR) AM GROUP UNDERWRITER procedure are in the results section. XR CHEST 1 VIEW Routine 03/12/2017 9:28 Results for this PORTABLE/BEDSIDE AM GROUP UNDERWRITER procedure are in the results section. PERIPHERAL VASCULAR 03/12/2017 8:20 REPORT - SCAN AM GROUP UNDERWRITER CBC W/PLT COUNT & AUTO Routine 03/12/2017 8:13 Results for this DIFFERENTIAL AM GROUP UNDERWRITER procedure are in the results section. TROPONIN I Routine 03/12/2017 8:13 Results for this AM GROUP UNDERWRITER procedure are in the results section. CREATINE KINASE (CK), Routine 03/12/2017 8:13 Results for this TOTAL AND MB AM GROUP UNDERWRITER procedure are in the results section. BASIC METABOLIC PANEL Routine 03/12/2017 8:13 Results for this (7) AM GROUP UNDERWRITER procedure are in the results section. CBC W/PLT COUNT & AUTO Routine 03/12/2017 8:13 Results for this DIFFERENTIAL AM GROUP UNDERWRITER procedure are in the results section. HOMOCYSTEINE Routine 03/12/2017 8:13 Results for this AM GROUP UNDERWRITER procedure are in the results section. HEMOGLOBIN A1C Routine 03/12/2017 8:13 Results for this AM GROUP UNDERWRITER procedure are in the results section. LIPID PANEL Routine 03/12/2017 8:13 Results for this AM GROUP UNDERWRITER procedure are in the results section. CAROTID DOPPLER Routine 03/12/2017 6:19 Results for this BILATERAL AM GROUP UNDERWRITER procedure are in the results section. TROPONIN I Routine 03/12/2017 12:22 Results for this AM GROUP UNDERWRITER procedure are in the results section. CREATINE KINASE (CK), Routine 03/12/2017 12:22 Results for this TOTAL AND MB AM GROUP UNDERWRITER procedure are in the results section. BASIC METABOLIC PANEL Routine 03/12/2017 12:22 Results for this (7) AM GROUP UNDERWRITER procedure are in the results section. CBC W/PLT COUNT & AUTO Routine 03/11/2017 11:41 Results for this DIFFERENTIAL PM GROUP UNDERWRITER procedure are in the results section. VITAMIN B12 AND FOLATE Routine 03/11/2017 11:41 Results for this PM GROUP UNDERWRITER procedure are in the results section. TSH/FREE T4 IF Routine 03/11/2017 11:41 Results for this INDICATED PM GROUP UNDERWRITER procedure are in the results section. PROTHROMBIN TIME/INR Routine 03/11/2017 11:41 Results for this PM GROUP UNDERWRITER procedure are in the results section. CBC W/PLT COUNT & AUTO Routine 03/11/2017 11:41 Results for this DIFFERENTIAL PM GROUP UNDERWRITER procedure are in the results section. after 02/13/2017 Results ARRYTHMIA IMPLANT REPORT - SCAN (02/03/2018 2:53 PM GROUP UNDERWRITER)Only the most recent of4 resultswithin the time period is included. Narrative Performed At RHYTHM STRIP - SCAN (12/06/2017 2:00 PM CDT)Only the most recent of4 resultswithin the time period is included. Narrative Performed At TSH/Free T4 If Indicated (12/02/2017 3:11 AM CDT)Only the most recent of2 resultswithin the time period is included. TSH 3.16 0.35 - 4.94 uIU/mL [facility] Specimen Blood Performing Organization Address City/State/Zipcode Phone Number [facility] [address] [place] [address] [phone] CENTER CBC with platelet count + automated diff (12/02/2017 3:11 AM CDT)Only the most recent of7 resultswithin the time period is included. WBC 5.2 3.5 - 10.5 K/L [facility] RBC 4.07 (L) 4.63 - 6.08 M/L [facility] Hemoglobin 11.2 (L) 13.7 - 17.5 GM/DL [facility] Hematocrit 35.9 (L) 40.1 - 51.0 % [facility] MCV 88.2 79.0 - 92.2 fL [facility] MCH 27.5 25.7 - 32.2 pg [facility] MCHC 31.2 (L) 32.3 - 36.5 GM/DL [facility] RDW 16.9 (H) 11.6 - 14.4 % [facility] Platelets 161 150 - 450 K/CU MM [facility] MPV 10.7 9.4 - 12.4 fL [facility] nRBC 0 0 - 0 /100 WBC [facility] % Neutros 51 % [facility] % Lymphs 32 % [facility] % Monos 11 % [facility] % Eos 3 % [facility] % Baso 2 % [facility] # Neutros 2.67 1.78 - 5.38 K/L [facility] # Lymphs 1.68 1.32 - 3.57 K/L [facility] # Monos 0.58 0.30 - 0.82 K/L [facility] # Eos 0.18 0.04 - 0.54 K/L [facility] # Baso 0.08 0.01 - 0.08 K/L [facility] Immature Granulocytes-Relative 1 0 - 1 % [facility] Specimen Blood Performing Organization Address City/State/Zipcode Phone Number [facility] [address] [place] [address] [phone] CENTER Basic Metabolic Panel (12/02/2017 3:11 AM CDT)Only the most recent of6 resultswithin the time period is included. Sodium 135 (L) 136 - 145 meq/L [facility] Potassium 3.9 3.5 - 5.1 meq/L [facility] Chloride 106 98 - 107 meq/L [facility] CO2 22 22 - 29 meq/L [facility] BUN 13 7 - 21 mg/dL [facility] Creatinine 0.81 0.57 - 1.25 mg/dL [facility] Glucose 91 70 - 105 mg/dL [facility] Calcium 8.5 8.4 - 10.2 mg/dL [facility] EGFR 95Comment: ESTIMATED GFR IS mL/min/1.73 sq m [facility] NOT ACCURATE CREATININE [facility] CLEARANCE IN PREDICTING GLOMERULAR FILTRATION RATE. ESTIMATED GFR IS NOT APPLICABLE FOR DIALYSIS PATIENTS. Specimen Blood Performing Organization Address City/State/Zipcode Phone Number [facility] [address] [place] [address] [place] Carotid doppler bilateral (12/01/2017 10:12 PM CDT)Only the most recent of2 resultswithin the time period is included. Ejection Fraction [facility] CPACS Impressions Performed At Right Impression [facility] 1. There is <50% diameter reduction (approximately 39% by 2-D measurement) in the internal carotid artery with a peak velocity of 124/24 cm/sec and heterogeneous plaque. 2. There is >50% stenosis in the external carotid artery with a velocity of 281/30 cm/sec. 3. The common carotid artery is within normal limits. 4. The vertebral artery flow is antegrade. 5. The subclavian artery is within normal limits where visualized. Left Impression 1. There is <50% diameter reduction (approximately 28% by 2-D measurement) in the internal carotid artery with a peak velocity of 105/30.5 cm/sec and heterogeneous plaque. 2. There is >50% stenosis in the external carotid artery with a velocity of 411/63 cm/sec. 3. The common carotid artery is within normal limits. 4. The vertebral artery flow is antegrade. 5. The subclavian artery is within normal limits where visualized. Conclusions Summary Carotid duplex scanning and color flow imaging were performed bilaterally. The arteries were adequately visualized. The bilateral internal carotid arteries had <50% hemodynamically insignificant stenosis (approximately 39% by 2-D measurement on the right, approximately 28% by 2-D measurement on the left) with heterogeneous plaque. There is >50% stenosis in the external carotid arteries bilaterally. The vertebral artery flow was antegrade and normal bilaterally. The subclavian arteries were patent with normal flow bilaterally where visualized. Signature Velocities are measured in cm/s ; Diameters are measured in cm Carotid Right Measurements + +----+----+-----+ +---- + + !Location !PSV !EDV !Angle!%Stenosis 2D!%Stenosis Doppler!Tortuosity ! + +----+----+-----+ +---- + + !Prox CCA !76.8!22.3!60 !! ! ! + +----+----+-----+ +---- + + !Dist CCA !78.6!22.3!60 !! ! ! + +----+----+-----+ +---- + + !Prox ICA !124 !23.6!60 !39% !<50% ! ! + +----+----+-----+ +---- + + !Dist ICA !130 !39.3!60 !! ! ! + +----+----+-----+ +---- + + !Prox ECA !281 !29.9!60 !! ! ! + +----+----+-----+ +---- + + !Vertebral!55.8!14.1!60 !! ! ! + +----+----+-----+ +---- + + !Prox Subclavian!165 !!60 !! ! ! + +----+----+-----+ +---- + + - There is antegrade vertebral flow noted on the right side. - Additional Measurements:ICAPSV/CCAPSV 1.65.ICAEDV/CCAEDV 1.76. Carotid Left Measurements + +----+----+-----+ +---- + + !Location !PSV !EDV !Angle!%Stenosis 2D!%Stenosis Doppler!Tortuosity ! + +----+----+-----+ +---- + + !Prox CCA !99.8!28.3!60 !! ! ! + +----+----+-----+ +---- + + !Dist CCA !78!22.9!60 !! ! ! + +----+----+-----+ +---- + + !Prox ICA !105 !30.5!60 !28% !<50% ! ! + +----+----+-----+ +---- + + !Dist ICA !96.2!35.2!60 !! ! ! + +----+----+-----+ +---- + + !Prox ECA !411 !62.9!60 !! ! ! + +----+----+-----+ +---- + + !Vertebral!83.8!26.4!60 !! ! ! + +----+----+-----+ +---- + + !Prox Subclavian!155 !!60 !! ! ! + +----+----+-----+ +---- + + - There is antegrade vertebral flow noted on the left side. - Additional Measurements:ICAPSV/CCAPSV 1.35.ICAEDV/CCAEDV 1.24. Narrative Performed At LAB - Carotid Duplex Study [facility] Demographics Patient Name JEAN,Date of Study 12/01/2017 MAMI [id number] Age 67 Visit Number [id number] GenderMale Accession Number [id number] Date of 1950 [facility] Room Number 7515 PhysicianMichaeanil HolcombographSarah EverettJ. Jose Perez MD, Physician RPVI Procedure Type of Study: Cerebral: Carotid, CAROTID DOPPLER, BILATERAL. Indications for Study:Stroke. Patient Status:Routine. Study Location:Portable. Technical Quality:Adequate visualization. Risk Factors History of Disease + + + + !Diagnosis !Date!Comments ! + + + + !History/Risk!03/12/2017!Stroke, Current Smoker, PAD, HTN, HLD, CAD, ! 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 + + + + Procedure Note Interface, External Ris In - 12/02/2017 6:29 AM CDT [facility] - Carotid Duplex Study Demographics Patient Name JEAN, Date of Study 12/01/2017 MAMI PRIDE [id number] Age 67 Visit Number [id number] Gender Male Accession Number [id number] Date of 1950 Referring [facility] Room Number 3757 Physician Jose Personal Development Educator Noel Hayes Interpreting Cristobal Perez MD, Physician KETTY Procedure Type of Study: Cerebral: Carotid, CAROTID DOPPLER, BILATERAL. Indications for Study:Stroke. Patient Status:Routine. Study Location:Portable. Technical Quality:Adequate visualization. Risk Factors History of Disease + + + + !Diagnosis !Date !Comments ! + + + + !History/Risk !03/12/2017!Stroke, Current Smoker, PAD, HTN, HLD, CAD, ! !Factors: ! !COPD, ID, Pacemaker, Fem-fem Bypass (2016) ! + + + + Impressions Right Impression 1. There is <50% diameter reduction (approximately 39% by 2-D measurement) in the internal carotid artery with a peak velocity of 124/24 cm/sec and heterogeneous plaque. 2. There is >50% stenosis in the external carotid artery with a velocity of 281/30 cm/sec. 3. The common carotid artery is within normal limits. 4. The vertebral artery flow is antegrade. 5. The subclavian artery is within normal limits where visualized. Left Impression 1. There is <50% diameter reduction (approximately 28% by 2-D measurement) in the internal carotid artery with a peak velocity of 105/30.5 cm/sec and heterogeneous plaque. 2. There is >50% stenosis in the external carotid artery with a velocity of 411/63 cm/sec. 3. The common carotid artery is within normal limits. 4. The vertebral artery flow is antegrade. 5. The subclavian artery is within normal limits where visualized. Conclusions Summary Carotid duplex scanning and color flow imaging were performed bilaterally. The arteries were adequately visualized. The bilateral internal carotid arteries had <50% hemodynamically insignificant stenosis (approximately 39% by 2-D measurement on the right, approximately 28% by 2-D measurement on the left) with heterogeneous plaque. There is >50% stenosis in the external carotid arteries bilaterally. The vertebral artery flow was antegrade and normal bilaterally. The subclavian arteries were patent with normal flow bilaterally where visualized. Signature Velocities are measured in cm/s ; Diameters are measured in cm Carotid Right Measurements + +----+----+-----+ + + + !Location !PSV !EDV !Angle!%Stenosis 2D!%Stenosis Doppler!Tortuosity ! + +----+----+-----+ + + + !Prox CCA !76.8!22.3!60 ! ! ! ! + +----+----+-----+ + + + !Dist CCA !78.6!22.3!60 ! ! ! ! + +----+----+-----+ + + + !Prox ICA !124 !23.6!60 !39% !<50% ! ! + +----+----+-----+ + + + !Dist ICA !130 !39.3!60 ! ! ! ! + +----+----+-----+ + + + !Prox ECA !281 !29.9!60 ! ! ! ! + +----+----+-----+ + + + !Vertebral !55.8!14.1!60 ! ! ! ! + +----+----+-----+ + + + !Prox Subclavian!165 ! !60 ! ! ! ! + +----+----+-----+ + + + - There is antegrade vertebral flow noted on the right side. - Additional Measurements:ICAPSV/CCAPSV 1.65.ICAEDV/CCAEDV 1.76. Carotid Left Measurements + +----+----+-----+ + + + !Location !PSV !EDV !Angle!%Stenosis 2D!%Stenosis Doppler!Tortuosity ! + +----+----+-----+ + + + !Prox CCA !99.8!28.3!60 ! ! ! ! + +----+----+-----+ + + + !Dist CCA !78 !22.9!60 ! ! ! ! + +----+----+-----+ + + + !Prox ICA !105 !30.5!60 !28% !<50% ! ! + +----+----+-----+ + + + !Dist ICA !96.2!35.2!60 ! ! ! ! + +----+----+-----+ + + + !Prox ECA !411 !62.9!60 ! ! ! ! + +----+----+-----+ + + + !Vertebral !83.8!26.4!60 ! ! ! ! + +----+----+-----+ + + + !Prox Subclavian!155 ! !60 ! ! ! ! + +----+----+-----+ + + + - There is antegrade vertebral flow noted on the left side. - Additional Measurements:ICAPSV/CCAPSV 1.35.ICAEDV/CCAEDV 1.24. Performing Organization Address City/State/Zipcode Phone Number [facility] Troponin I (12/01/2017 8:17 PM CDT)Only the most recent of7 resultswithin the time period is included. Troponin I <0.01 0.00 - 0.03 ng/mL [facility] Specimen Blood Narrative Performed At [facility] Troponin I (TnI) levels must be interpreted [...] acidosis, acute neurological disease, and persistent tachyarrhythmia. Performing Organization Address City/State/Zipcode Phone Number [facility] [address] [place] [address] CENTER ECHOCARDIOGRAM REPORT - SCAN (12/01/2017 6:50 PM CDT) Narrative Performed At CT brain without IV contrast portable (12/01/2017 6:30 PM CDT) Narrative Performed At FINAL REPORT [employer] CT head without contrast 12/01/2017 6:40 PM CLINICAL HISTORY: Post tPA TECHNIQUE: Contiguous axial images through the head without contrast were obtained utilizing the portable CT unit. This examination was performed according to our departmental dose optimization program, which includes automated exposure control, adjustment of the mA and/or kV according to patient size, and/or use of iterated reconstruction technique. COMPARISON: 03/12/2017 FINDINGS: There is rare chronic-appearing microvascular ischemia in the supratentorial white matter. There is atherosclerotic calcification of the intracranial arterial vasculature. There is generalized parenchymal volume loss. The paranasal sinuses and tympanomastoid cavities are well-aerated. The skull is intact. There are postsurgical changes in the anterior left maxilla. IMPRESSION: No intracranial hemorrhage or mass effect. If concern for intracranial pathology persists, further evaluation with MRI is recommended. Signed: Wilbert Quintanilla MD Report Verified Date/Time:12/01/2017 18:41:06 Reading Location: [facility] Radiology Reading Room Procedure Note Interface, External Ris In - 12/01/2017 6:43 PM CDT FINAL REPORT CT head without contrast 12/01/2017 6:40 PM CLINICAL HISTORY: Post tPA TECHNIQUE: Contiguous axial images through the head without contrast were obtained utilizing the portable CT unit. This examination was performed according to our departmental dose optimization program, which includes automated exposure control, adjustment of the mA and/or kV according to patient size, and/or use of iterated reconstruction technique. COMPARISON: 03/12/2017 FINDINGS: There is rare chronic-appearing microvascular ischemia in the supratentorial white matter. There is atherosclerotic calcification of the intracranial arterial vasculature. There is generalized parenchymal volume loss. The paranasal sinuses and tympanomastoid cavities are well-aerated. The skull is intact. There are postsurgical changes in the anterior left maxilla. IMPRESSION: No intracranial hemorrhage or mass effect. If concern for intracranial pathology persists, further evaluation with MRI is recommended. Signed: Wilbert Quintanilla MD Report Verified Date/Time: 12/01/2017 18:41:06 Reading Location: [facility] Radiology Reading Room Performing Organization Address City/State/Zipcode Phone Number GE RIS TRANSFUSION SERVICE REPORT - SCAN (12/01/2017 6:03 PM CDT) Narrative Performed At Potassium (12/01/2017 3:53 PM CDT) Potassium 3.7 3.5 - 5.1 meq/L [facility] Specimen Blood Narrative Performed At Check Serum Potassium level 2 hours after [facility] oral potassium replacement completed or 30 min after intravenous potassium replacement. Performing Organization Address City/[facility]/Zipcode Phone Number [facility] [address] [place] [address] CENTER ECG 12 lead (12/01/2017 11:15 AM CDT)Only the most recent of4 resultswithin the time period is included. Narrative Performed At Ventricular Rate 60 BPM GE MUSE Atrial Rate 60 BPM P-R Interval 150 ms QRS Duration 82 ms Q-T Interval 404 ms QTC Calculation(Bazett) 404 ms P [place] -12 degrees R [place] 17 degrees T [place] 69 degrees Electronic atrial pacemaker Nonspecific T wave abnormality Abnormal ECG When compared with ECG of 01-DEC-2017 07:44, Nonspecific T wave abnormality has replaced inverted T waves in Lateral leads Confirmed by Tyler Hickman ([id number]) on 12/01/2017 11:03:52 PM Procedure Note Interface, External Ris In - 12/01/2017 11:03 PM CDT Ventricular Rate 60 BPM Atrial Rate 60 BPM P-R Interval 150 ms QRS Duration 82 ms Q-T Interval 404 ms QTC Calculation(Bazett) 404 ms P [place] -12 degrees R [place] 17 degrees T [place] 69 degrees Electronic atrial pacemaker Nonspecific T wave abnormality Abnormal ECG When compared with ECG of 01-DEC-2017 07:44, Nonspecific T wave abnormality has replaced inverted T waves in Lateral leads Confirmed by Tyler Hickman ([id number]) on 12/01/2017 11:03:52 PM Performing Organization Address City/State/[facility] Phone Number GE MUSE Pacemaker Check (12/01/2017 10:56 AM CDT) Narrative Performed At Sakshi Britt RN 12/01/2017 10:56 AM Performed pacemaker interrogation per order.Preliminary report placed under cardiac studies in chart. 1. Normal device function 2. No events SAKSHI BRITT RN 12/01/2017 10:56 AM [id number] Transthoracic 2D echo w/ doppler (cw/pw/color) (12/01/2017 9:37 AM CDT) Ejection Fraction [facility] Narrative Performed At Transthoracic Echocardiography Report (TTE) [facility] Demographics Patient Name JEAN, Date of Study 12/01/2017 MAMI [id number] GenderMale Visit Number [id number] Room Number 7515 Number Date of Birth1950Referring Physician Jostin Sevilla MD Age67 year(s)Personal Development Educator Spencerailin Ragsdale [facility] AnalystAlex Modesto InterpretingStPhysician TJ Tracy Procedure Type of Study TTE procedure:2DECHO W DOPPLER(CW/PW/COLOR) (Routine) Indications:Suspected cardiac source of emboli. Clinical History HGB 11.3 HCT 35.2 % DEFINITY 4ML ANGINA, COPD, CAD, CVA (03/2017), DEMENTIA, SHI, EMPHYSEMA, HTN, HLD, ID PPM (2008), SOB, SMOKER, TIA, PCI (01/20/2016), R. CATH (07/2015) Contrast Medium: Bubble Study. Height: 68 inches Weight: 70.31 kg (155 lbs) BSA: 1.83 m^2 BMI: 23.57 kg/m^2 HR: 60 bpm BP: 122/73 mmHg Summary 1. No apparent segmental wall motion abnormalities. Estimated LVEF by qualitative assessment is normal (>60%) . 2. IV saline contrast injection was negative for a PFO (patent foramen ovale) at rest and post Valsalva . 3. Estimated peak systolic PA pressure is 25-30 mmHg Previous Study Compared to the previous study there was no significant change. Signature Findings Left Ventricle LV endocardium is adequately visualized with IV ul trasound enhancing agent. Normal left ventricular ch marlena size. Normal wall thickness. Normal overall le ft ventricular systolic function. No apparent se gmental wall motion abnormalities. Estimated LVEF by qualitative assessment is normal (>60%) . Left AtriumLA size is normal . Right VentricleNormal right ventricle structure and function. RV pacing wire is visualized . Right Atrium Normal right atrium. RA pacing wire is visualized . Atrial SeptumIV saline contrast injection was negative for a PFO (p atent foramen ovale) at rest and post Valsalva . Aortic Valve Mild AoV cusp thickening. Mitral Valve Mild MV leaflet thickening. Tricuspid ValveMild tricuspid regurgitation. Es timated peak systolic PA pressure is 25-30 mmHg . Pulmonic Valve Normal PV structure and function by limited views an d Doppler. AortaAortic root size (SInus of Valsalva diameter) is no rmal . PericardiumNo evidence of pericardial effusion. IVC/SVC/PA/PV/PleuralThe estimated RA pressure by IVC dynamics 5-10mmHg . Chambers/Structures Left Atrium LA Dimension: 2.84 cm Left Ventricle LVIDd: 4.07 cm LV Septum Diastolic: 0.78 cm LV PW Diastolic: 0.8 cm LV Length: 6.7 cm LVOT Diameter: 2.06 cm Aorta Ao Root S of Nusrat.: 2.23 cm Doppler/Quantitative Measurements Mitral Valve MV Peak E-Wave: 0.51 m/s MV Peak A-Wave: 0.76 m/s E/A Ratio: 0.67 Peak Gradient: 1.04 mmHg Deceleration Time: 363.5 msec MV Riccardo. Peak: Aortic Valve Peak Velocity: 1.56 m/sMean Velocity: 0.96 m/s Peak Gradient: 9.76 mmHg Mean Gradient: 4.36 mmHg AV Area (continuity): 3.32 cm^2 AV VTI: 26.78 cm AV DVI: 1 LVOT Peak Velocity: 1.33 m/s Peak Gradient: 7.16 mmHg Mean Velocity: 0.75 m/s Mean Gradient: 2.91 mmHg LVOT Diameter: 2.06 cmLVOT VTI: 26.72 cm LVOT Area: 3.33 cm^2LVOT SV:89.01 ml LVOT CO: 5.34 l/min LVOT CI: 2.92 l/min/m^2 Tricuspid Valve TR Velocity: 2.15 m/s TR Gradient: 18.57 mmHg Procedure Note Interface, External Ris In - 12/01/2017 6:11 PM CDT Transthoracic Echocardiography Report (TTE) Demographics Patient Name JEAN, Date of Study 12/01/2017 MAMI Gender Male Visit Number [id number] Race Room Number 7515 Number Date of 1950 Referring Physician Jostin Sevilla MD Age 67 year(s) Personal Development Educator Roxane Ragsdale [facility] Envelope Folder Edward Salvador Interpreting Physician TJ Gonzalez Procedure Type of Study TTE procedure:2DECHO W DOPPLER(CW/PW/COLOR) (Routine) Indications:Suspected cardiac source of emboli. Clinical History HGB 11.3 HCT 35.2 % DEFINITY 4ML ANGINA, COPD, CAD, CVA (03/2017), DEMENTIA, SHI, EMPHYSEMA, HTN, HLD, ID PPM (2008), SOB, SMOKER, TIA, PCI (01/20/2016), R. CATH (07/2015) Contrast Medium: Bubble Study. Height: 68 inches Weight: 70.31 kg (155 lbs) BSA: 1.83 m^2 BMI: 23.57 kg/m^2 HR: 60 bpm BP: 122/73 mmHg Summary 1. No apparent segmental wall motion abnormalities. Estimated LVEF by qualitative assessment is normal (>60%) . 2. IV saline contrast injection was negative for a PFO (patent foramen ovale) at rest and post Valsalva . 3. Estimated peak systolic PA pressure is 25-30 mmHg Previous Study Compared to the previous study there was no significant change. Signature Findings Left Ventricle LV endocardium is adequately visualized with IV ultrasound enhancing agent. Normal left ventricular chamber size. Normal wall thickness. Normal overall left ventricular systolic function. No apparent segmental wall motion abnormalities. Estimated LVEF by qualitative assessment is normal (>60%) . Left Atrium LA size is normal . Right Ventricle Normal right ventricle structure and function. RV pacing wire is visualized . Right Atrium Normal right atrium. RA pacing wire is visualized . Atrial Septum IV saline contrast injection was negative for a PFO (patent foramen ovale) at rest and post Valsalva . Aortic Valve Mild AoV cusp thickening. Mitral Valve Mild MV leaflet thickening. Tricuspid Valve Mild tricuspid regurgitation. Estimated peak systolic PA pressure is 25-30 mmHg . Pulmonic Valve Normal PV structure and function by limited views and Doppler. Aorta Aortic root size (SInus of Valsalva diameter) is normal . Pericardium No evidence of pericardial effusion. IVC/SVC/PA/PV/Pleural The estimated RA pressure by IVC dynamics 5-10mmHg . Chambers/Structures Left Atrium LA Dimension: 2.84 cm Left Ventricle LVIDd: 4.07 cm LV Septum Diastolic: 0.78 cm LV PW Diastolic: 0.8 cm LV Length: 6.7 cm LVOT Diameter: 2.06 cm Aorta Ao Root S of Nusrat.: 2.23 cm Doppler/Quantitative Measurements Mitral Valve MV Peak E-Wave: 0.51 m/s MV Peak A-Wave: 0.76 m/s E/A Ratio: 0.67 Peak Gradient: 1.04 mmHg Deceleration Time: 363.5 msec MV Riccardo. Peak: Aortic Valve Peak Velocity: 1.56 m/s Mean Velocity: 0.96 m/s Peak Gradient: 9.76 mmHg Mean Gradient: 4.36 mmHg AV Area (continuity): 3.32 cm^2 AV VTI: 26.78 cm AV DVI: 1 LVOT Peak Velocity: 1.33 m/s Peak Gradient: 7.16 mmHg Mean Velocity: 0.75 m/s Mean Gradient: 2.91 mmHg LVOT Diameter: 2.06 cm LVOT VTI: 26.72 cm LVOT Area: 3.33 cm^2 LVOT SV:89.01 ml LVOT CO: 5.34 l/min LVOT CI: 2.92 l/min/m^2 Tricuspid Valve TR Velocity: 2.15 m/s TR Gradient: 18.57 mmHg Performing Organization Address City/[facility] Phone Number [facility] Phosphorus (12/01/2017 8:14 AM CDT) Phosphorus 2.6Comment: Specimen slightly 2.3 - 4.7 mg/dL [facility] Spec[facility] Blood Performing Organization Address City/[facility] Phone Number [address] [address] CENTER Magnesium (12/01/2017 8:14 AM CDT) Magnesium 2.2Comment: Specimen slightly 1.6 - 2.6 mg/dL [facility] Specimen Blood Performing Organization Address [facility] Phone Number [address] [address] [phone] [place] Hemoglobin A1c (12/01/2017 3:33 AM CDT)Only the most recent of3 resultswithin the time period is included. Hemoglobin A1C 6.0 4.3 - 6.1 % [facility] Specimen Blood Performing Organization Address [facility] Phone Number [address] [address] [phone] CENTER Fasting lipid panel (12/01/2017 3:33 AM CDT)Only the most recent of2 resultswithin the time period is included. Triglycerides 119 mg/dL [facility] Cholesterol 144 mg/dL [facility] HDL 26 mg/dL [facility] LDL Calculated 94 mg/dL [facility] Specimen Blood Narrative Performed At [facility] Triglyceride Reference Range: Low Risk <150 [id number] High Risk 200-499 Very High Risk>=500 Cholesterol Reference Range: Low Risk <200 [id number] High Risk>240 HDL Cholesterol Reference Range: Low Risk >=60 High Risk <40 LDL Cholesterol Reference Range: Optimal<100 Near [id number] [id number] Very High >=190 Fasting Performing Organization Address City/[facility] Phone Number [address] [address] CENTER Type and screen, automated (11/30/2017 5:41 PM CDT) ABO/RH AUTOMATED (BEAKER) O POSITIVE [facility] Ab Scrn NEGATIVE [facility] Specimen Blood Performing Organization Address [facility] Phone Number [address] [address] [phone] Vitamin B12 and Folate (11/30/2017 5:41 PM CDT)Only the most recent of2 resultswithin the time period is included. Vitamin B12 1,185 (H) 213 - 816 pg/mL [facility] Folate 2.3 (L) >=7.0 ng/mL [facility] Specimen Blood Performing Organization Address [facility] Phone Number [address] [address] CENTER PERMANENT LAB REPORT - SCAN (03/15/2017 11:00 AM GROUP UNDERWRITER) Narrative Performed At CARDIAC CATH REPORT - SCAN (03/15/2017 11:00 AM GROUP UNDERWRITER) Narrative Performed At VASCULAR DIAGRAM -SCAN (03/15/2017 11:00 AM GROUP UNDERWRITER)Only the most recent of2 resultswithin the time period is included. Narrative Performed At ECHOCARDIOGRAM REPORT - SCAN (03/12/2017 4:57 PM GROUP UNDERWRITER) Narrative Performed At CT brain without IV contrast (03/12/2017 3:29 PM GROUP UNDERWRITER) Narrative Performed At FINAL REPORT [employer] CT head without contrast 03/12/2017 3:29 PM [...] Age-indeterminate left caudate nucleus infarct. Signed: Wilbert Quintanilla MD Report Verified Date/Time:03/12/2017 15:31:17 Reading Location: [address] Neuro Reading Room Procedure Note Interface, External Ris In - 03/12/2017 3:33 PM GROUP UNDERWRITER FINAL REPORT CT head without contrast 03/12/2017 [...] Age-indeterminate left caudate nucleus infarct. Signed: Wilbert Quintanilla MD Report Verified Date/Time: 03/12/2017 15:31:17 Reading Location: [address] Neuro Reading Room Performing Organization Address City/State/Zipcode Phone Number GE RIS 2D Echo W/Doppler(CW/PW/Color) (03/12/2017 10:53 AM GROUP UNDERWRITER) Ejection Fraction [facility]CHO [facility] Narrative Performed At Transthoracic Echocardiography Report (TTE) [facility] Demographics Patient Name Tyron PEAN of Study 03/12/2017 [id number] GenderMale Visit Number [id number] RaceCaucahiren [id number] Room Number 7518 Number Date of Birth1950 Referring Physician Corbin Garcia Age67 year(s) Personal Development Educator Kristopher Muniz MD Physician Fellow CHLOE Melton Procedure Type of Study TTE procedure:2DECHO W DOPPLER(CW/PW/COLOR) Indications:Stroke . Clinical History COPD,CVA,DEMENTIA,ENLARGED PROSTATE,HERNIA CEREBRI,HTN,ID,SMOKING Height: 68 inches Weight: 70.31 kg (155 [...] LV endocardium is adequately visualized with IV ul trasound enhancing agent. Gl obal LV systolic function normal . LV EF by Shukla's method of disk assessment is no rmal (>60%) . Gr klaus 1 diastolic dysfunction. Al l of the LV segments contract normally . No evidence of LV hypertrophy. Th e left ventricle is chamber size (by vol index) is normal (male - LVED vol - 34-74ml/m2). Left AtriumLA size is normal . Right VentricleThe right ventricular chamber size and systolic fu nction are within normal limits. Right Atrium RA size is probably normal based on available vi ews. RA pacing wire is visualized . Atrial SeptumIV saline contrast injection was negative for a PFO (p atent foramen ovale) at rest and post Valsalva . Aortic Valve Mild AoV cusp thickening. Th ere is no aortic stenosis. Th ere is no aortic regurgitation. Mitral Valve Mild MV leaflet thickening. Tr nadeem mitral regurgitation. Tricuspid ValveTV structure is normal. Mi ld tricuspid regurgitation. Pulmonic Valve PV is not well visualized; function appears normal by Doppler visualized. AortaAortic root size (SInus of Valsalva diameter) is no rmal . PericardiumNo significant pericardial effusion is visualized. IVC/SVC/PA/PV/PleuralThe inferior vena cava size is normal . Th e estimated RA pressure by IVC dynamics 0-5mmHg . Chambers/Structures Left Atrium LA Volume: 33.93 ml LA Vol. Index: 19 ml/m^2 Left Ventricle LVIDd: 4.05 cm LV Septum Diastolic: 0.92 cm LV PW Diastolic: 1.08 cm LVEDV Shukla's:73.79 ml LVESV Shukla's:27.15 ml LVEF Shukla's: 63.8 %LVEDV I: 40 ml/m^2 LVESVI: 15 ml/m^2 LVOT Diameter: [...] External Ris In - 03/12/2017 4:15 PM GROUP UNDERWRITER Transthoracic Echocardiography Report (TTE) Demographics Patient Name MAMI PENA Date of Study 03/12/2017 Gender Male Visit Number [id number] Race Room Number 7518 Number Date of 1950 Referring Physician Corbin Garcia Age 67 year(s) Personal Development Educator Kristopher Engle Interpreting Prosper Muniz MD Physician Fellow CHLOE Melton Procedure Type of Study TTE procedure:2DECHO W DOPPLER(CW/PW/COLOR) Indications:Stroke . Clinical History COPD,CVA,DEMENTIA,ENLARGED PROSTATE,HERNIA CEREBRI,HTN,ID,SMOKING Height: 68 inches Weight: 70.31 kg (155 [...] 22.61 mmHg TR Mean Velocity: 2.27 m/s Performing Organization Address City/State/Zipcode Phone Number [facility] CPALollipuff XR chest 1 view portable / bedside (03/12/2017 9:28 AM GROUP UNDERWRITER) Narrative Performed At FINAL REPORT [facility] [place]) Two frontal chest images Discussion: No specific [...] MD Report Verified Date/Time:03/12/2017 10:06:57 Reading Location: [facility] Radiology Reading Room Procedure Note Interface, External Ris In - 03/12/2017 10:09 AM GROUP UNDERWRITER FINAL REPORT Two frontal chest images Discussion: [...] Report Verified Date/Time: 03/12/2017 10:06:57 Reading Location: [facility] Radiology Reading Room Performing Organization Address City/[facility]/Zipcode Phone Number GE RIS PERIPHERAL VASCULAR REPORT - SCAN (03/12/2017 8:20 AM GROUP UNDERWRITER) Narrative Performed At Homocysteine - Fasting (03/12/2017 8:13 AM GROUP UNDERWRITER) Homocysteine 11.8 5.1 - 15.4 umol/L [facility] Specimen Blood - Arm, Left Narrative Performed At Fasting [facility] Performing Organization Address [facility] Phone Number [address] [address] CENTER Creatine Kinase (CK), Total and MB (03/12/2017 8:13 AM GROUP UNDERWRITER)Only the most recent of2 resultswithin the time period is included. Total CK 59 29 - 200 U/L [facility] CK-MB 1.0 0.0 - 6.6 ng/mL [facility] MB Relative Index 1.7 % [facility] Specimen Blood - Arm, Left Narrative Performed At CK-MB Reference Range: [facility] <6.7Normal 6.7-10.0Borderline >10.0 Abnormal Fasting Fasting Performing Organization Address [facility] Phone Number [facility] [address] [place] [address] CENTER Prothrombin time/INR (03/11/2017 11:41 PM GROUP UNDERWRITER) Protime 17.2 (H) 11.7 - 14.7 seconds [facility] INR 1.4 <=5.9 [facility] Specimen Blood - Arm, Left Narrative Performed At [facility] RECOMMENDED COUMADIN/WARFARIN INR THERAPY RANGES STANDARD DOSE: 2.0 - 3.0 Includes: PROPHYLAXIS for venous thrombosis, systemic embolization; TREATMENT for venous thrombosis and/or pulmonary embolus. HIGH RISK: Target INR is 2.5-3.5 for patients with mechanical heart valves. Performing Organization Address City/State/Zipcode Phone Number [facility] [address] [place], [place] [phone] CENTER after 02/13/2017 Insurance Payer Benefit Plan / Group Subscriber ID Type Phone Address [employer] - UNITED MEDICARE HMO xxxxxxxxxxx MEDICARE [facility] MEDICAID MEDICAID [facility] xxxxxxxxx Medicaid Guarantor Name Account Type Relation to Date of Phone Billing Patient Address Mami Pena Personal/Family Self 1950 [address] (Home) [place] [address] Mami Pena Personal/Family Self 1950 [address] (Home) [place] [address] Advance Directives For more information, please contact:RADHA [address] [phone] Code Status Date Activated Date Inactivated Comments Full Code 11/30/2017 4:52 PM 12/02/2017 4:13 PM This code status was determined by: Patient Full Code 01/13/2016 11:29 AM 01/14/2016 8:29 PM This code status was determined by: Patient
--- OUTSIDE RECORDS SUMMARY | 2018-02-14 09:29 | XMS REPORT ---
:1950 Author Organization [facility] Address [address] [place] [address] Care Team Providers Name Role Phone LOU AVERY Unavailable Unavailable MECCA STERLING Unavailable Unavailable Problems This patient has no known problems. Allergies, Adverse Reactions, Alerts This patient has no known allergies or adverse reactions. Medications This patient has no known medications. Results Test Description Test Time Test Comments Text Results Atomic Results Result Comments TSH/FREE T4 IF INDICATED 2017-12-02 04:03:00 Test Item Value Reference Range Comments THYROID STIMULATING HORMONE (BEAKER) (test ajxl=537) 3.16 uIU/mL 0.35-4.94 BASIC METABOLIC [id number] 03:35:00 Test Item Value Reference Range Comments SODIUM (BEAKER) (test 135 meq/L 136-145 xpis=103) POTASSIUM (BEAKER) (test 3.9 meq/L 3.5-5.1 mewh=877) CHLORIDE (BEAKER) (test 106 meq/L 98-107 zodt=342) CO2 (BEAKER) (test 22 meq/L 22-29 nfae=553) BLOOD UREA NITROGEN 13 mg/dL 7-21 (BEAKER) (test oqnr=330) CREATININE (BEAKER) (test 0.81 mg/dL 0.57-1.25 nadv=518) GLUCOSE RANDOM (BEAKER) 91 mg/dL 70-105 (test aiep=630) CALCIUM (BEAKER) (test 8.5 mg/dL 8.4-10.2 zxux=297) EGFR (BEAKER) (test 95 mL/min/1.73 sq m ESTIMATED GFR IS NOT qwcr=1688) ACCURATE CREATININE CLEARANCE IN PREDICTING GLOMERULAR FILTRATION RATE. ESTIMATED GFR IS NOT APPLICABLE FOR DIALYSIS PATIENTS. CBC W/PLT COUNT & AUTO [id number] 03:24:00 Test Item Value Reference Range Comments WHITE BLOOD CELL COUNT (BEAKER) (test umap=931) 5.2 K/ L 3.5-10.5 RED BLOOD CELL COUNT (BEAKER) (test tpil=284) 4.07 M/ L 4.63-6.08 HEMOGLOBIN (BEAKER) (test bjwj=385) 11.2 GM/DL 13.7-17.5 HEMATOCRIT (BEAKER) (test dcsu=506) 35.9 % 40.1-51.0 MEAN CORPUSCULAR VOLUME (BEAKER) (test ulfx=303) 88.2 fL 79.0-92.2 MEAN CORPUSCULAR HEMOGLOBIN (BEAKER) (test 27.5 pg 25.7-32.2 wvlr=646) MEAN CORPUSCULAR HEMOGLOBIN CONC (BEAKER) (test 31.2 GM/DL 32.3-36.5 jfgm=452) RED CELL DISTRIBUTION WIDTH (BEAKER) (test 16.9 % 11.6-14.4 hkqt=790) PLATELET COUNT (BEAKER) (test uidk=561) 161 K/CU MM 150-450 MEAN PLATELET VOLUME (BEAKER) (test vuks=359) 10.7 fL 9.4-12.4 NUCLEATED RED BLOOD CELLS (BEAKER) (test 0 /100 WBC 0-0 elsr=835) NEUTROPHILS RELATIVE PERCENT (BEAKER) (test 51 % vcop=535) LYMPHOCYTES RELATIVE PERCENT (BEAKER) (test 32 % govw=303) MONOCYTES RELATIVE PERCENT (BEAKER) (test 11 % cijk=202) EOSINOPHILS RELATIVE PERCENT (BEAKER) (test 3 % jkny=256) BASOPHILS RELATIVE PERCENT (BEAKER) (test 2 % aggn=357) NEUTROPHILS ABSOLUTE COUNT (BEAKER) (test 2.67 K/ L 1.78-5.38 hfaq=294) LYMPHOCYTES ABSOLUTE COUNT (BEAKER) (test 1.68 K/ L 1.32-3.57 dqmq=989) MONOCYTES ABSOLUTE COUNT (BEAKER) (test 0.58 K/ L 0.30-0.82 ctoy=245) EOSINOPHILS ABSOLUTE COUNT (BEAKER) (test 0.18 K/ L 0.04-0.54 gsif=093) BASOPHILS ABSOLUTE COUNT (BEAKER) (test 0.08 K/ L 0.01-0.08 wrbo=907) IMMATURE GRANULOCYTES-RELATIVE PERCENT (BEAKER) 1 % 0-1 (test oqra=3968) TROPONIN [id number] 20:57:00 Test Item Value Reference Range Comments TROPONIN I (KYARA) (test lzhp=793) < ng/mL 0.00-0.03 Troponin I (TnI) levels [...] failure, acidosis, acute neurological disease, and persistent tachyarrhythmia.CT BRAIN WITHOUT IV CONTRAST - [id number] 18:41:00Reason for exam:->Post tPAFINAL REPORT CT head without contrast 12/01/2017 6:40 PM CLINICAL HISTORY: Post tPA TECHNIQUE: Contiguous axial images through the head without contrast were obtained utilizing the portable CT unit. This examination was performed according to our departmental dose optimization program, which includes automated exposure control, adjustment of the mA and/or kV according to patientsize, and/or use of iterated reconstruction technique. COMPARISON: 2017 FINDINGS: There is rare chronic-appearing microvascular ischemia in the supratentorial white matter. There is atheroscleroticcalcification of the intracranial arterial vasculature. There is generalized parenchymal volume loss. The paranasal sinuses and tympanomastoid cavities are well-aerated. The skull is intact. There arepostsurgical changes in the anterior left maxilla. IMPRESSION: No intracranial hemorrhage or mass effect. If concern for intracranial pathology persists, further evaluation with MRI is recommended. Signed: Wilbert Paez Verified Date/Time: 12/01/2017 18:41:06 Reading Location: [facility] Radiology Reading Room TROPONIN [id number] 17:00:00 Test Item Value Reference Range Comments TROPONIN I (KYARA) (test rvzy=201) < ng/mL 0.00-0.03 Troponin I (TnI) levels [...] failure, acidosis, acute neurological disease, and persistent tachyarrhythmia.[id number] 16:23:00 Test Item Value Reference Range Comments POTASSIUM (BEAKER) (test aogq=630) 3.7 meq/L 3.5-5.1 Check Serum Potassium level 2 hours after oral potassium replacement completed or 30 min after intravenous potassium replacement.[id number] 11:59:00 Test Item Value Reference Range Comments MAGNESIUM (BEAKER) (test 2.2 mg/dL 1.6-2.6 Specimen slightly hemolyzed blww=901) [id number] 11:59:00 Test Item Value Reference Range Comments PHOSPHORUS (BEAKER) (test 2.6 mg/dL 2.3-4.7 Specimen slightly hemolyzed ubtj=946) HEMOGLOBIN [id number] 11:49:00 Test Item Value Reference Range Comments HEMOGLOBIN A1C (BEAKER) (test hzye=307) 6.0 % 4.3-6.1 TROPONIN [id number] 08:40:00 Test Item Value Reference Range Comments TROPONIN I (BEAKER) (test knvh=724) < ng/mL 0.00-0.03 Troponin I (TnI) levels [...] failure, acidosis, acute neurological disease, and persistent tachyarrhythmia.LIPID [id number] 04:39:00 Test Item Value Reference Range Comments TRIGLYCERIDES (BEAKER) (test toas=865) 119 mg/dL CHOLESTEROL (BEAKER) (test bowj=036) 144 mg/dL HDL CHOLESTEROL (BEAKER) (test jkry=105) 26 mg/dL LDL CHOLESTEROL CALCULATED (BEAKER) (test 94 mg/dL trrg=529) Triglyceride Reference Range: Low Risk <150 Borderline 150- 199 High Risk 200-499 Very High Risk >=500Cholesterol Reference Range: Low Risk <200 Borderline 200-239 High Risk > 240HDL Cholesterol Reference Range: Low Risk >=60 High Risk <40LDL Cholesterol Reference Range: Optimal <100 Near Optimal 100-129 Borderline 130-159 High 160-189 Very High >=190 FastingBASIC METABOLIC [id number] 04:39:00 Test Item Value Reference Range Comments SODIUM (BEAKER) (test 136 meq/L 136-145 tuew=779) POTASSIUM (BEAKER) (test 3.7 meq/L 3.5-5.1 jfun=967) CHLORIDE (BEAKER) (test 105 meq/L 98-107 srnf=002) CO2 (BEAKER) (test 23 meq/L 22-29 lnbs=457) BLOOD UREA NITROGEN 14 mg/dL 7-21 (BEAKER) (test siya=893) CREATININE (BEAKER) (test 0.86 mg/dL 0.57-1.25 msfm=948) GLUCOSE RANDOM (BEAKER) 94 mg/dL 70-105 (test mopa=290) CALCIUM (BEAKER) (test 8.8 mg/dL 8.4-10.2 ljuj=609) EGFR (BEAKER) (test 88 mL/min/1.73 sq m ESTIMATED GFR IS NOT ecne=0636) ACCURATE CREATININE CLEARANCE IN PREDICTING GLOMERULAR FILTRATION RATE. ESTIMATED GFR IS NOT APPLICABLE FOR DIALYSIS PATIENTS. FastingCBC W/PLT COUNT & AUTO [id number] 04:25:00 Test Item Value Reference Range Comments WHITE BLOOD CELL COUNT (BEAKER) (test xwsp=118) 5.0 K/ L 3.5-10.5 RED BLOOD CELL COUNT (BEAKER) (test htbs=556) 4.03 M/ L 4.63-6.08 HEMOGLOBIN (BEAKER) (test bgsu=592) 11.3 GM/DL 13.7-17.5 HEMATOCRIT (BEAKER) (test xcdl=095) 35.2 % 40.1-51.0 MEAN CORPUSCULAR VOLUME (BEAKER) (test tqee=989) 87.3 fL 79.0-92.2 MEAN CORPUSCULAR HEMOGLOBIN (BEAKER) (test 28.0 pg 25.7-32.2 ebqc=162) MEAN CORPUSCULAR HEMOGLOBIN CONC (BEAKER) (test 32.1 GM/DL 32.3-36.5 hpub=921) RED CELL DISTRIBUTION WIDTH (BEAKER) (test 16.9 % 11.6-14.4 bbup=139) PLATELET COUNT (BEAKER) (test wbvf=956) 179 K/CU MM 150-450 MEAN PLATELET VOLUME (BEAKER) (test yume=557) 11.6 fL 9.4-12.4 NUCLEATED RED BLOOD CELLS (BEAKER) (test 0 /100 WBC 0-0 tuxp=078) NEUTROPHILS RELATIVE PERCENT (BEAKER) (test 48 % wlcx=361) LYMPHOCYTES RELATIVE PERCENT (BEAKER) (test 36 % gpmg=567) MONOCYTES RELATIVE PERCENT (BEAKER) (test 10 % tuvt=186) EOSINOPHILS RELATIVE PERCENT (BEAKER) (test 3 % ipxm=920) BASOPHILS RELATIVE PERCENT (BEAKER) (test 2 % zmig=981) NEUTROPHILS ABSOLUTE COUNT (BEAKER) (test 2.41 K/ L 1.78-5.38 doxr=141) LYMPHOCYTES ABSOLUTE COUNT (BEAKER) (test 1.80 K/ L 1.32-3.57 usmq=641) MONOCYTES ABSOLUTE COUNT (BEAKER) (test 0.52 K/ L 0.30-0.82 lmcn=893) EOSINOPHILS ABSOLUTE COUNT (BEAKER) (test 0.17 K/ L 0.04-0.54 bqry=010) BASOPHILS ABSOLUTE COUNT (BEAKER) (test 0.08 K/ L 0.01-0.08 uate=109) IMMATURE GRANULOCYTES-RELATIVE PERCENT (BEAKER) 1 % 0-1 (test pcwt=2299) HEMOGLOBIN [id number] 22:29:00 Test Item Value Reference Range Comments HEMOGLOBIN A1C (BEAKER) (test apmn=903) 5.9 % 4.3-6.1 VITAMIN B12 AND [id number] 18:47:00 Test Item Value Reference Range Comments VITAMIN B12 (BEAKER) (test etrc=086) 1185 pg/mL 213-816 FOLATE (BEAKER) (test xsry=741) 2.3 ng/mL >=7.0 TROPONIN [id number] 18:18:00 Test Item Value Reference Range Comments TROPONIN I (BEAKER) (test lwri=073) < ng/mL 0.00-0.03 Troponin I (TnI) levels [...] acute neurological disease, and persistent tachyarrhythmia.BASIC METABOLIC [id number] 18:10:00 Test Item Value Reference Range Comments SODIUM (BEAKER) (test 136 meq/L 136-145 jnvr=911) POTASSIUM (BEAKER) (test 3.8 meq/L 3.5-5.1 aloq=492) CHLORIDE (BEAKER) (test 102 meq/L 98-107 hzft=816) CO2 (BEAKER) (test 23 meq/L 22-29 tznn=895) BLOOD UREA NITROGEN 10 mg/dL 7-21 (BEAKER) (test jkal=182) CREATININE (BEAKER) (test 0.88 mg/dL 0.57-1.25 jesn=774) GLUCOSE RANDOM (BEAKER) 102 mg/dL 70-105 (test ywzh=583) CALCIUM (BEAKER) (test 9.3 mg/dL 8.4-10.2 oten=480) EGFR (BEAKER) (test 86 mL/min/1.73 sq m ESTIMATED GFR IS NOT heng=3347) ACCURATE CREATININE CLEARANCE IN PREDICTING GLOMERULAR FILTRATION RATE. ESTIMATED GFR IS NOT APPLICABLE FOR DIALYSIS PATIENTS. CBC W/PLT COUNT & AUTO [id number] 17:52:00 Test Item Value Reference Range Comments WHITE BLOOD CELL COUNT (BEAKER) (test fgqe=688) 8.8 K/ L 3.5-10.5 RED BLOOD CELL COUNT (BEAKER) (test hdlf=132) 4.53 M/ L 4.63-6.08 HEMOGLOBIN (BEAKER) (test obvq=165) 12.6 GM/DL 13.7-17.5 HEMATOCRIT (BEAKER) (test rjax=814) 39.4 % 40.1-51.0 MEAN CORPUSCULAR VOLUME (BEAKER) (test aqhi=852) 87.0 fL 79.0-92.2 MEAN CORPUSCULAR HEMOGLOBIN (BEAKER) (test 27.8 pg 25.7-32.2 nval=092) MEAN CORPUSCULAR HEMOGLOBIN CONC (BEAKER) (test 32.0 GM/DL 32.3-36.5 bazt=230) RED CELL DISTRIBUTION WIDTH (BEAKER) (test 17.0 % 11.6-14.4 flxm=224) PLATELET COUNT (BEAKER) (test ulox=612) 186 K/CU MM 150-450 MEAN PLATELET VOLUME (BEAKER) (test sgqo=276) 10.5 fL 9.4-12.4 NUCLEATED RED BLOOD CELLS (BEAKER) (test 0 /100 WBC 0-0 octs=789) NEUTROPHILS RELATIVE PERCENT (BEAKER) (test 69 % ozph=799) LYMPHOCYTES RELATIVE PERCENT (BEAKER) (test 20 % hmid=624) MONOCYTES RELATIVE PERCENT (BEAKER) (test 9 % tokd=634) EOSINOPHILS RELATIVE PERCENT (BEAKER) (test 1 % coic=193) BASOPHILS RELATIVE PERCENT (BEAKER) (test 1 % bqmn=577) NEUTROPHILS ABSOLUTE COUNT (BEAKER) (test 6.12 K/ L 1.78-5.38 pezc=998) LYMPHOCYTES ABSOLUTE COUNT (BEAKER) (test 1.72 K/ L 1.32-3.57 dmdu=733) MONOCYTES ABSOLUTE COUNT (BEAKER) (test 0.75 K/ L 0.30-0.82 wrcw=322) EOSINOPHILS ABSOLUTE COUNT (BEAKER) (test 0.08 K/ L 0.04-0.54 sdhg=508) BASOPHILS ABSOLUTE COUNT (BEAKER) (test 0.09 K/ L 0.01-0.08 nuhn=553) IMMATURE GRANULOCYTES-RELATIVE PERCENT (BEAKER) 1 % 0-1 (test clrd=1142) BASIC METABOLIC [id number] 07:51:00 Test Item Value Reference Range Comments SODIUM (BEAKER) (test 136 meq/L 136-145 mfnr=259) POTASSIUM (BEAKER) (test 4.0 meq/L 3.5-5.1 osrg=963) CHLORIDE (BEAKER) (test 106 meq/L 98-107 orwd=591) CO2 (BEAKER) (test 23 meq/L 22-29 ycym=807) BLOOD UREA NITROGEN 15 mg/dL 7-21 (BEAKER) (test nxar=611) CREATININE (BEAKER) (test 0.92 mg/dL 0.57-1.25 dryn=632) GLUCOSE RANDOM (BEAKER) 92 mg/dL 70-105 (test geri=419) CALCIUM (BEAKER) (test 8.7 mg/dL 8.4-10.2 fxyn=287) EGFR (BEAKER) (test 82 mL/min/1.73 sq m ESTIMATED GFR IS NOT ciqm=9551) ACCURATE CREATININE CLEARANCE IN PREDICTING GLOMERULAR FILTRATION RATE. ESTIMATED GFR IS NOT APPLICABLE FOR DIALYSIS PATIENTS. CBC W/PLT COUNT & AUTO [id number] 05:55:00 Test Item Value Reference Range Comments WHITE BLOOD CELL COUNT (BEAKER) (test oyqc=921) 5.9 K/ L 3.5-10.5 RED BLOOD CELL COUNT (BEAKER) (test fnjv=085) 4.25 M/ L 4.63-6.08 HEMOGLOBIN (BEAKER) (test rvbd=033) 12.3 GM/DL 13.7-17.5 HEMATOCRIT (BEAKER) (test qpgn=097) 37.8 % 40.1-51.0 MEAN CORPUSCULAR VOLUME (BEAKER) (test nsuc=932) 88.9 fL 79.0-92.2 MEAN CORPUSCULAR HEMOGLOBIN (BEAKER) (test 28.9 pg 25.7-32.2 uvov=427) MEAN CORPUSCULAR HEMOGLOBIN CONC (BEAKER) (test 32.5 GM/DL 32.3-36.5 skko=094) RED CELL DISTRIBUTION WIDTH (BEAKER) (test 15.9 % 11.6-14.4 rjjp=993) PLATELET COUNT (BEAKER) (test dlyc=765) 173 K/CU MM 150-450 MEAN PLATELET VOLUME (BEAKER) (test mrdg=785) 11.5 fL 9.4-12.4 NUCLEATED RED BLOOD CELLS (BEAKER) (test 0 /100 WBC 0-0 wqum=313) NEUTROPHILS RELATIVE PERCENT (BEAKER) (test 48 % zvpj=085) LYMPHOCYTES RELATIVE PERCENT (BEAKER) (test 34 % vhjf=553) MONOCYTES RELATIVE PERCENT (BEAKER) (test 12 % rgaa=962) EOSINOPHILS RELATIVE PERCENT (BEAKER) (test 4 % kixg=682) BASOPHILS RELATIVE PERCENT (BEAKER) (test 2 % cost=960) NEUTROPHILS ABSOLUTE COUNT (BEAKER) (test 2.85 K/ L 1.78-5.38 afay=216) LYMPHOCYTES ABSOLUTE COUNT (BEAKER) (test 2.02 K/ L 1.32-3.57 vfzg=558) MONOCYTES ABSOLUTE COUNT (BEAKER) (test 0.68 K/ L 0.30-0.82 nfzf=239) EOSINOPHILS ABSOLUTE COUNT (BEAKER) (test 0.25 K/ L 0.04-0.54 jyvq=740) BASOPHILS ABSOLUTE COUNT (BEAKER) (test 0.09 K/ L 0.01-0.08 vwhg=381) IMMATURE GRANULOCYTES-RELATIVE PERCENT (BEAKER) 1 % 0-1 (test eevp=2434) CBC W/PLT COUNT & AUTO [id number] 05:15:00 Test Item Value Reference Range Comments WHITE BLOOD CELL COUNT (BEAKER) (test kfdi=028) 5.4 K/ L 3.5-10.5 RED BLOOD CELL COUNT (BEAKER) (test hyjp=235) 4.34 M/ L 4.63-6.08 HEMOGLOBIN (BEAKER) (test thyv=796) 12.5 GM/DL 13.7-17.5 HEMATOCRIT (BEAKER) (test bpjw=956) 39.0 % 40.1-51.0 MEAN CORPUSCULAR VOLUME (BEAKER) (test uefw=800) 89.9 fL 79.0-92.2 MEAN CORPUSCULAR HEMOGLOBIN (BEAKER) (test 28.8 pg 25.7-32.2 tgqg=632) MEAN CORPUSCULAR HEMOGLOBIN CONC (BEAKER) (test 32.1 GM/DL 32.3-36.5 lvqb=233) RED CELL DISTRIBUTION WIDTH (BEAKER) (test 15.9 % 11.6-14.4 qdbg=370) PLATELET COUNT (BEAKER) (test llhr=510) 162 K/CU MM 150-450 MEAN PLATELET VOLUME (BEAKER) (test yjap=120) 10.6 fL 9.4-12.4 NUCLEATED RED BLOOD CELLS (BEAKER) (test 0 /100 WBC 0-0 nfbs=640) NEUTROPHILS RELATIVE PERCENT (BEAKER) (test 52 % cphx=767) LYMPHOCYTES RELATIVE PERCENT (BEAKER) (test 31 % cnno=782) MONOCYTES RELATIVE PERCENT (BEAKER) (test 11 % svrx=233) EOSINOPHILS RELATIVE PERCENT (BEAKER) (test 4 % mkxm=765) BASOPHILS RELATIVE PERCENT (BEAKER) (test 2 % yejq=102) NEUTROPHILS ABSOLUTE COUNT (BEAKER) (test 2.78 K/ L 1.78-5.38 kpqk=070) LYMPHOCYTES ABSOLUTE COUNT (BEAKER) (test 1.69 K/ L 1.32-3.57 qrro=801) MONOCYTES ABSOLUTE COUNT (BEAKER) (test 0.59 K/ L 0.30-0.82 egkf=680) EOSINOPHILS ABSOLUTE COUNT (BEAKER) (test 0.21 K/ L 0.04-0.54 ndfd=934) BASOPHILS ABSOLUTE COUNT (BEAKER) (test 0.09 K/ L 0.01-0.08 bocp=906) IMMATURE GRANULOCYTES-RELATIVE PERCENT (BEAKER) 1 % 0-1 (test rhna=7128) CT, BRAIN, WITHOUT [id number] 15:31:00FINAL REPORT CT head without contrast 03/12/2017 [...] Paez Verified Date/Time: 03/12/2017 15:31:17 Reading Location: [address] Neuro Reading Room TROPOROCIO [id number] 15:26:00 Test Item Value Reference Range Comments TROPONIN I (BEAKER) (test qixg=722) 0.02 ng/mL 0.00-0.03 Troponin I (TnI) levels [...] acidosis, acute neurological disease, and persistent tachyarrhythmia.HEMOGLOBIN [id number] 12:38:00 Test Item Value Reference Range Comments HEMOGLOBIN A1C (BEAKER) (test gudz=462) 5.6 % 4.3-6.1 FastingRAD, CHEST, 1 VIEW, NON [id number] 10:06:00Reason for exam:->rule out pneumoniaShould this be [...] Benites Verified Date/Time: 03/12/2017 10:06:57 Reading Location: [facility] Radiology Reading Room [id number] 09:08:00 Test Item Value Reference Range Comments HOMOCYSTEINE (BEAKER) (test prsq=251) 11.8 umol/L 5.1-15.4 FastingCREATINE KINASE (CK), TOTAL AND [id number] 08:55:00 Test Item Value Reference Range Comments CREATINE KINASE TOTAL (BEAKER) (test umot=525) 59 U/L 29-200 CREATINE KINASE-MB (BEAKER) (test bktj=476) 1.0 ng/mL 0.0-6.6 CREATINE KINASE-MB INDEX (BEAKER) (test htcf=406) 1.7 % CK-MB Reference Range:<6.7 Normal6.7-10.0 Borderline>10.0 AbnormalFastingFastingTROPONIN [id number] 08:55:00 Test Item Value Reference Range Comments TROPONIN I (BEAKER) (test tsww=469) < ng/mL 0.00-0.03 Troponin I (TnI) levels [...] acidosis, acute neurological disease, and persistent tachyarrhythmia.FastingLIPID [id number] 08:48:00 Test Item Value Reference Range Comments TRIGLYCERIDES (BEAKER) (test httz=578) 151 mg/dL CHOLESTEROL (BEAKER) (test kvkj=990) 147 mg/dL HDL CHOLESTEROL (BEAKER) (test lkjq=731) 29 mg/dL LDL CHOLESTEROL CALCULATED (BEAKER) (test 88 mg/dL oxlr=322) Triglyceride Reference Range: Low Risk <150 Borderline 150- 199 High Risk 200-499 Very High Risk >=500Cholesterol Reference Range: Low Risk <200 Borderline 200-239 High Risk > 240HDL Cholesterol Reference Range: Low Risk >=60 High Risk <40LDL Cholesterol Reference Range: Optimal <100 Near Optimal 100-129 Borderline 130-159 High 160-189 Very High >=190 FastingBASIC METABOLIC [id number] 08:48:00 Test Item Value Reference Range Comments SODIUM (BEAKER) (test 136 meq/L 136-145 rrif=631) POTASSIUM (BEAKER) (test 4.4 meq/L 3.5-5.1 tkdx=799) CHLORIDE (BEAKER) (test 104 meq/L 98-107 zvbu=002) CO2 (BEAKER) (test 25 meq/L 22-29 zyrd=754) BLOOD UREA NITROGEN 15 mg/dL 7-21 (BEAKER) (test aabk=652) CREATININE (BEAKER) (test 0.87 mg/dL 0.57-1.25 ekjb=896) GLUCOSE RANDOM (BEAKER) 102 mg/dL 70-105 (test wxjf=614) CALCIUM (BEAKER) (test 8.9 mg/dL 8.4-10.2 mjwz=460) EGFR (BEAKER) (test 87 mL/min/1.73 sq m ESTIMATED GFR IS NOT rulh=9720) ACCURATE CREATININE CLEARANCE IN PREDICTING GLOMERULAR FILTRATION RATE. ESTIMATED GFR IS NOT APPLICABLE FOR DIALYSIS PATIENTS. FastingCBC W/PLT COUNT & AUTO [id number] 08:24:00 Test Item Value Reference Range Comments WHITE BLOOD CELL COUNT (BEAKER) (test pjxr=033) 5.7 K/ L 3.5-10.5 RED BLOOD CELL COUNT (BEAKER) (test jqfw=139) 4.23 M/ L 4.63-6.08 HEMOGLOBIN (BEAKER) (test smkd=340) 12.3 GM/DL 13.7-17.5 HEMATOCRIT (BEAKER) (test cctg=816) 37.9 % 40.1-51.0 MEAN CORPUSCULAR VOLUME (BEAKER) (test uzad=880) 89.6 fL 79.0-92.2 MEAN CORPUSCULAR HEMOGLOBIN (BEAKER) (test 29.1 pg 25.7-32.2 ctfq=880) MEAN CORPUSCULAR HEMOGLOBIN CONC (BEAKER) (test 32.5 GM/DL 32.3-36.5 dbsk=446) RED CELL DISTRIBUTION WIDTH (BEAKER) (test 15.9 % 11.6-14.4 gkre=509) PLATELET COUNT (BEAKER) (test esqb=782) 156 K/CU MM 150-450 MEAN PLATELET VOLUME (BEAKER) (test nxzu=739) 10.2 fL 9.4-12.4 NUCLEATED RED BLOOD CELLS (BEAKER) (test 0 /100 WBC 0-0 egwh=841) NEUTROPHILS RELATIVE PERCENT (BEAKER) (test 47 % zohy=160) LYMPHOCYTES RELATIVE PERCENT (BEAKER) (test 37 % wvva=855) MONOCYTES RELATIVE PERCENT (BEAKER) (test 12 % jrfb=273) EOSINOPHILS RELATIVE PERCENT (BEAKER) (test 3 % ntzp=250) BASOPHILS RELATIVE PERCENT (BEAKER) (test 2 % awzy=457) NEUTROPHILS ABSOLUTE COUNT (BEAKER) (test 2.66 K/ L 1.78-5.38 tgrl=684) LYMPHOCYTES ABSOLUTE COUNT (BEAKER) (test 2.09 K/ L 1.32-3.57 rrco=103) MONOCYTES ABSOLUTE COUNT (BEAKER) (test 0.70 K/ L 0.30-0.82 tvgi=060) EOSINOPHILS ABSOLUTE COUNT (BEAKER) (test 0.15 K/ L 0.04-0.54 mmvy=385) BASOPHILS ABSOLUTE COUNT (BEAKER) (test 0.09 K/ L 0.01-0.08 jerz=131) IMMATURE GRANULOCYTES-RELATIVE PERCENT (BEAKER) 1 % 0-1 (test wxeh=3711) TSH/FREE T4 IF [id number] 03:38:00 Test Item Value Reference Range Comments THYROID STIMULATING HORMONE (BEAKER) (test 2.01 uIU/mL 0.35-4.94 fevo=053) VITAMIN B12 AND [id number] 03:38:00 Test Item Value Reference Range Comments VITAMIN B12 (BEAKER) (test chga=390) 1008 pg/mL 213-816 FOLATE (BEAKER) (test rqad=881) 8.4 ng/mL >=7.0 CREATINE KINASE (CK), TOTAL AND [id number] 01:03:00 Test Item Value Reference Range Comments CREATINE KINASE TOTAL (BEAKER) (test qdow=724) 66 U/L 29-200 CREATINE KINASE-MB (BEAKER) (test dpkb=601) 1.4 ng/mL 0.0-6.6 CREATINE KINASE-MB INDEX (BEAKER) (test xvun=900) 2.1 % CK-MB Reference Range:<6.7 Normal6.7-10.0 Borderline>10.0 AbnormalTROPONIN [id number] 01:03:00 Test Item Value Reference Range Comments TROPONIN I (BEAKER) (test blcm=870) 0.02 ng/mL 0.00-0.03 Troponin I (TnI) levels [...] acute neurological disease, and persistent tachyarrhythmia.BASIC METABOLIC [id number] 00:56:00 Test Item Value Reference Range Comments SODIUM (BEAKER) (test 136 meq/L 136-145 teyz=355) POTASSIUM (BEAKER) (test 3.9 meq/L 3.5-5.1 tekr=631) CHLORIDE (BEAKER) (test 104 meq/L 98-107 mxqj=465) CO2 (BEAKER) (test 24 meq/L 22-29 jeuz=392) BLOOD UREA NITROGEN 14 mg/dL 7-21 (BEAKER) (test dpbr=848) CREATININE (BEAKER) (test 0.87 mg/dL 0.57-1.25 xbbr=750) GLUCOSE RANDOM (BEAKER) 104 mg/dL 70-105 (test zuhj=441) CALCIUM (BEAKER) (test 9.2 mg/dL 8.4-10.2 cdqh=410) EGFR (BEAKER) (test 87 mL/min/1.73 sq m ESTIMATED GFR IS NOT mzel=5910) ACCURATE CREATININE CLEARANCE IN PREDICTING GLOMERULAR FILTRATION RATE. ESTIMATED GFR IS NOT APPLICABLE FOR DIALYSIS PATIENTS. PROTHROMBIN TIME/[id number] 00:27:00 Test Item Value Reference Range Comments PROTIME (BEAKER) (test saok=287) 17.2 seconds 11.7-14.7 INR (BEAKER) (test olvd=032) 1.4 <=5.9 RECOMMENDED COUMADIN/WARFARIN INR THERAPY RANGESSTANDARD DOSE: 2.0 - 3.0 Includes: PROPHYLAXIS forvenous thrombosis, systemic embolization; TREATMENT for venous thrombosis and/or pulmonary embolus.HIGH RISK: Target INR is 2.5-3.5 for patients with mechanical heart valves.CBC W/PLT COUNT & AUTO [id number] 00:01:00 Test Item Value Reference Range Comments WHITE BLOOD CELL COUNT (BEAKER) (test epww=436) 8.2 K/ L 3.5-10.5 RED BLOOD CELL COUNT (BEAKER) (test ydvk=547) 4.57 M/ L 4.63-6.08 HEMOGLOBIN (BEAKER) (test alyr=720) 13.2 GM/DL 13.7-17.5 HEMATOCRIT (BEAKER) (test xsho=466) 40.5 % 40.1-51.0 MEAN CORPUSCULAR VOLUME (BEAKER) (test dojc=913) 88.6 fL 79.0-92.2 MEAN CORPUSCULAR HEMOGLOBIN (BEAKER) (test 28.9 pg 25.7-32.2 jtno=928) MEAN CORPUSCULAR HEMOGLOBIN CONC (BEAKER) (test 32.6 GM/DL 32.3-36.5 pfrw=242) RED CELL DISTRIBUTION WIDTH (BEAKER) (test 15.9 % 11.6-14.4 hsrj=166) PLATELET COUNT (BEAKER) (test ieox=463) 198 K/CU MM 150-450 MEAN PLATELET VOLUME (BEAKER) (test agvp=364) 11.2 fL 9.4-12.4 NUCLEATED RED BLOOD CELLS (BEAKER) (test 0 /100 WBC 0-0 bbgl=617) NEUTROPHILS RELATIVE PERCENT (BEAKER) (test 57 % geyc=730) LYMPHOCYTES RELATIVE PERCENT (BEAKER) (test 28 % shvh=638) MONOCYTES RELATIVE PERCENT (BEAKER) (test 10 % jhjr=298) EOSINOPHILS RELATIVE PERCENT (BEAKER) (test 3 % qudi=643) BASOPHILS RELATIVE PERCENT (BEAKER) (test 1 % svvb=268) NEUTROPHILS ABSOLUTE COUNT (BEAKER) (test 4.66 K/ L 1.78-5.38 xyae=595) LYMPHOCYTES ABSOLUTE COUNT (BEAKER) (test 2.29 K/ L 1.32-3.57 ilrr=210) MONOCYTES ABSOLUTE COUNT (BEAKER) (test 0.81 K/ L 0.30-0.82 tokq=966) EOSINOPHILS ABSOLUTE COUNT (BEAKER) (test 0.25 K/ L 0.04-0.54 jaqb=969) BASOPHILS ABSOLUTE COUNT (BEAKER) (test 0.10 K/ L 0.01-0.08 mqms=900) IMMATURE GRANULOCYTES-RELATIVE PERCENT (BEAKER) 1 % 0-1 (test iivu=0519)
[2018-02-14] MEDS ORDERED: ONDANSETRON 4 MG/2 ML VIAL ONE (09:42)
[2018-02-14] MEDS ORDERED: MORPHINE 4 MG/ML SYR ONE (09:42)
[2018-02-14 09:49] LABS: Absolute Lymphocytes (CBC) 1.8 K/uL (0.7-4.9); Absolute Monocytes 0.9 K/uL (0.1-1.3); Absolute Neutrophil 3.5 K/uL (1.8-8.0); Eosinophils % 1.8 % (0-4.4); Hematocrit 36.5 % (39.6-49.0); Lymphocytes % 28.5 % (15.3-44.8); MCH 26.5 pg (27.0-35.0); MCV 80.7 fL (80-100); MPV 8.5 fL (7.6-11.3); Monocytes % 13.8 % (3.3-12.3); RBC Red Blood Cell Count 4.52 M/uL (4.33-5.43)
[2018-02-14 10:14] LABS: ALT/SGPT 22 U/L (12-78); AST/SGOT 18 U/L (15-37); Albumin 3.9 g/dL (3.4-5.0); Alkaline Phosphatase 136 U/L (45-117); BUN Blood Urea Nitrogen 14 mg/dL (7-18); Bicarbonate 27 mmol/L (21-32); Bilirubin Direct 0.1 mg/dL (0-0.2); Bilirubin Total 0.3 mg/dL (0.2-1.0); Glucose Level 78 mg/dL (74-106); NT PRO-BNP 173 pg/mL (<125); Potassium 3.8 mmol/L (3.5-5.1); Protein, Total 8.2 g/dL (6.4-8.2); Sodium Level 133 mmol/L (136-145); Troponin (Emerg Dept Use Only) < 0.02 ng/mL (0.0-0.045)
[2018-02-14] MEDS ORDERED: MEPERIDINE HCL 25 MG/0.5 ML ONE ×2 (10:44→13:39)
--- NOTE | 2018-02-14 11:01 | RAD REPORT ---
EXAM DESCRIPTION: RAD - Chest Single View - 02/14/2018 10:53 am CLINICAL HISTORY: CHEST PAIN Chest pain. COMPARISON: Chest Single View dated 11/30/2017; Chest Single View dated 09/30/2017; Chest Single View dated 09/08/2017; Chest Single View dated 08/11/2017; Thorax W/ Con dated 11/30/2017 FINDINGS: Portable technique limits examination quality. Prominent emphysematous changes are present throughout the lungs. No focal infiltrate seen. The heart is normal in size. No displaced fractures.Dual lead pacer device is in place. IMPRESSION: Prominent COPD.
--- NOTE | 2018-02-14 11:09 | RAD REPORT ---
EXAM DESCRIPTION: CT - Chest For Pe Angio - 02/14/2018 10:59 am CLINICAL HISTORY: Chest pain, hypertension COMPARISON: CT chest November 30, portable chest same date TECHNIQUE: Dynamically enhanced 3 mm thick images of the chest were obtained during administration o f approximately 150mL Isovue 370 IV contrast. Coronal and oblique MIP reconstruction images were gene rated and reviewed. Exam utilizes a protocol to evaluate the pulmonary arterial tree. All CT scans are performed using dose optimization technique as appropriate and may include automated exposure control or mA/KV adjustment according to patient size. FINDINGS: No pulmonary emboli are identified. The aorta as imaged shows no acute or suspicious finding. No pericardial thickening or effusion. No focal mass or consolidation. Patient has baseline interstitial fibrotic change. Bullous changes ar e seen in the upper lung harding. Biapical pleural scarring changes are present similar to comparison. No pleural effusion or pleural thickening. No pneumothorax. Bronchial hutchinson appear slightly thicker compared to November and there is slightly greater interstitial opacification in the lower lung fiel ds. This could reflect bronchitis or viral infiltrate. This can be correlated with clinical presentat ion. A minimal interstitial edema would be possible as well. No mediastinal or hilar suspicious masses. No chest wall masses or abnormal axillary lymphadenopathy. IMPRESSION: No pulmonary emboli identified. Bronchitis or viral infiltrate findings are suspected and can be correlated with clinical presentatio n. Mild interstitial edema would be possible as well. No focal consolidation for bacterial pneumonia. No mass or other worrisome finding.
--- NOTE | 2018-02-14 11:35 | EKG ---
Test Date: 2018-02-14 Test Time: 09:27:51 Disaster Recovery Specialist: LIZBETH MEASUREMENT RESULTS: Intervals: Rate: 71 CT: 156 QRSD: 84 QT: 352 QTc: 382 [place]: P: 62 CT: 156 QRS: 43 T: 76 INTERPRETIVE STATEMENTS: Normal sinus rhythm Nonspecific T wave abnormality Abnormal ECG Compared to ECG 11/30/2017 12:40:36 T-wave abnormality now present Atrial premature complex(es) no longer present ST (T wave) deviation no longer present Electronically Signed On 02-14-18 11:34:12 DEATH CLEARANCE COORDINATOR by Epifanio Gonzalez
[2018-02-14] MEDS ORDERED: METHYLPREDNISOLONE 125 MG INJ ONE (11:49)
[2018-02-14] MEDS ORDERED: LEVALBUTEROL 1.25 MG/3 ML NEB ONE (11:49)
--- NOTE | 2018-02-14 13:39 | ER ---
Nurse's Notes [facility] Name: Maurice Morfin Age: 68 yrs Sex: Male : 1950 Arrival Date: 02/14/2018 Time: 09:20 Bed 17 Private MD: Yung Thomas Diagnosis: Chest pain, unspecified Presentation: 02/14 09:21 Presenting complaint: Patient states: chest pain started this morning and my pressure tw2 was a little high. Transition of care: patient was not received from another setting of care. Onset of symptoms was February 14, 2018. Risk Assessment: Do you want to hurt yourself or someone else? Patient reports no desire to harm self or others. Initial Sepsis Screen: Does the patient meet any 2 criteria? No. Patient's initial sepsis screen is negative. Does the patient have a suspected source of infection? No. Patient's initial sepsis screen is negative. Care prior to arrival: None. 09:21 Method Of Arrival: Wheelchair tw2 09:21 Acuity: WAYLON 3 tw2 Historical: - Allergies: : NKDA; tw2 - Home Meds: 09:56 albuterol sulfate 2.5 mg /3 mL (0.083 %) Inhl nebu for Chronic Obstructive Pulmonary tw2 Disease [Active]; aspirin 81 mg Oral chew 1 tab once daily [Active]; omeprazole 20 mg Oral cpDR 1 cap once daily for Gastroesophageal reflux [Active]; atorvastatin 80 mg Oral tab 1 tab once daily [Active]; Nitroglycerin 0.4 SL Oral [Active]; clopidogrel 75 mg Oral tab 1 tab once daily [Active]; losartan-hydrochlorothiazide 100-25 mg Oral tab [Active]; BRILINTA 90 mg Oral tab 1 tab 2 times per day [Active]; buspirone 15 mg Oral tab 1 tab 2 times per day [Active]; Hyzaar Oral [Active]; ipratropium bromide (bulk) miscellaneous powd daily [Active]; pentoxifylline 400 mg Oral TbER [Active]; - PMHx: 09:31 COPD; Dementia; Hypertension; Hernia; Cholelithiasis; CVA; enlarged prostate; DC; TIA; tw2 - PSHx: 09:31 L leg bypass; pacemaker; heart stent; tw2 - Immunization history:: Adult Immunizations up to date. - Social history:: Smoking status: Patient uses tobacco products, smokes one pack cigarettes per day. - Ebola Screening: : Patient denies travel to an Ebola-affected area in the 21 days before illness onset. - Family history:: not pertinent. - Hospitalizations: : No recent hospitalization is reported. Screenin:01 Abuse screen: Denies threats or abuse. Nutritional screening: On. Nutritional tw2 screening: No deficits noted. Tuberculosis screening: No symptoms or risk factors identified. Fall Risk None identified. Assessment: 09:22 General: Appears uncomfortable, slender, Behavior is calm, cooperative, appropriate for tw2 age. Pain: Complains of pain in chest Pain began 3 hours ago. "this morning". Neuro: Level of Consciousness is awake, alert, obeys commands, Oriented to person, place, time, situation. Cardiovascular: Reports chest pain, Heart tones S1 S2 Patient's skin is warm and dry. Respiratory: Airway is patent Respiratory effort is even, unlabored, Respiratory pattern is regular, symmetrical, tachypnea Breath sounds are clear bilaterally. GI: No signs and/or symptoms were reported involving the gastrointestinal system. : No signs and/or symptoms were reported regarding the genitourinary system. EENT: No signs and/or symptoms were reported regarding the EENT system. Derm: No signs and/or symptoms reported regarding the dermatologic system. Musculoskeletal: Range of motion: intact in all extremities. 09:59 Reassessment: Patient appears in no apparent distress at this time. No changes from tw2 previously documented assessment. Patient and/or family updated on plan of care and expected duration. Pain level reassessed. Patient is alert, oriented x 3, equal unlabored respirations, skin warm/dry/pink. Patient states symptoms have not improved. 10:01 Pain: Pain does not radiate. tw2 11:06 Reassessment: Patient appears in no apparent distress at this time. Patient and/or tw2 family updated on plan of care and expected duration. Pain level reassessed. Patient is alert, oriented x 3, equal unlabored respirations, skin warm/dry/pink. 12:11 Reassessment: Patient appears in no apparent distress at this time. No changes from tw2 previously documented assessment. Patient and/or family updated on plan of care and expected duration. Pain level reassessed. Patient is alert, oriented x 3, equal unlabored respirations, skin warm/dry/pink. 13:24 Reassessment: Patient appears in no apparent distress at this time. Patient and/or iw family updated on plan of care and expected duration. Pain level reassessed. Patient is alert, oriented x 3, equal unlabored respirations, skin warm/dry/pink. pt and family requesting to be discharged at this time, ERP notified Patient denies pain at this time. Patient states feeling better. Patient states symptoms have improved. 13:55 Reassessment: Patient appears in no apparent distress at this time. No changes from tw2 previously documented assessment. Patient and/or family updated on plan of care and expected duration. Pain level reassessed. Patient is alert, oriented x 3, equal unlabored respirations, skin warm/dry/pink. Patient states feeling better. Patient states symptoms have improved. Vital Signs: 09:29 BP 155 / 76; Pulse 75; Resp 25; Temp 97.6(O); Pulse Ox 100% on R/A; Pain 10/10; tw2 09:58 BP 161 / 79; Pulse 67; Resp 24; Pulse Ox 98% on R/A; Pain 10/10; tw2 11:04 BP 150 / 78; Pulse 69; Resp 20; Pulse Ox 100% on R/A; tw2 12:11 BP 147 / 86; Pulse 60; Resp 17; Pulse Ox 100% on R/A; tw2 13:33 BP 158 / 83; Pulse 78; Resp 17; Pulse Ox 98% on R/A; tw2 ED Course: 09:20 Patient arrived in ED. as 09:20 Yung Thomas MD is Private Physician. as 09:21 Placed in gown. Bed in low position. Adult w/ patient. secured entrance monitor on. Pulse ox on. tw2 NIBP on. Warm blanket given. 09:22 Hector Torrez MD is Attending Physician. rn 09:28 Gi Angelo RN is Primary Nurse. tw2 09:29 Triage completed. tw2 09:29 Arm band placed on. tw2 09:31 Inserted saline lock: 22 gauge in right antecubital area, using aseptic technique. tw2 Blood collected. Patient maintains SpO2 saturation greater than 95% on room air. 09:33 EKG done, by facilities operations technician. reviewed by Hector Torrez MD. at1 10:50 X-ray completed. Portable x-ray completed in exam room. Patient tolerated procedure ls3 well. 10:54 XRAY Chest (1 view) In Process Unspecified. EDMS 10:56 CT completed. Patient tolerated procedure well. Note: IV was not functioning weel and sj had too much resistance for contrast exam. New 22 g diffusics started in lt upper arm.. Patient moved to CT via stretcher. Patient moved back from CT. 10:59 CT Chest For PE Angio In Process Unspecified. EDMS 11:00 Inserted saline lock: 20 gauge in left upper arm, using aseptic technique. ,using tw2 aseptic technique. per Aquiles Myers, Aquiles Myers report need for new if prior to cat scan. 13:54 No provider procedures requiring assistance completed. IV discontinued, intact, tw2 bleeding controlled, No redness/swelling at site. Pressure dressing applied, discontinued to left upper arm and right ac. Administered Medications: 09:35 Drug: Zofran 4 mg Route: IVP; Site: right antecubital; tw2 09:59 Follow up: Response: No adverse reaction; Nausea is decreased tw2 09:37 Drug: morphine 4 mg Route: IVP; Site: right antecubital; tw2 09:59 Follow up: Response: No adverse reaction; Pain is unchanged, physician notified tw2 10:37 Drug: Demerol 25 mg Route: IVP; Site: right antecubital; tw2 11:10 Follow up: Response: No adverse reaction; Pain is decreased tw2 11:45 Drug: SOLU-Medrol 125 mg Route: IVP; Site: left upper arm; tw2 13:29 Follow up: Response: No adverse reaction tw2 11:47 Drug: Xopenex (3) 1.25 mg Route: Inhalation; tw2 13:33 Drug: Demerol 25 mg Route: IVP; Site: left upper arm; tw2 13:55 Follow up: Response: No adverse reaction; Pain is decreased tw2 Outcome: 13:39 Discharge ordered by MD. mckeon 13:55 Discharged to home ambulatory, with family, with friend. tw2 13:55 Condition: stable 13:55 Discharge instructions given to patient, family, friend, Instructed on discharge instructions, follow up and referral plans. medication usage, Demonstrated understanding of instructions, follow-up care, medications, Prescriptions given X 1. 13:55 Patient left the ED. tw2 Signatures: Dispatcher [employer] Lucia Saravia Amelia as Williams, Irene, RN RN Hector Boland MD MD rn Gonzales, Amanda, central processing technician EKG Tat1 Gi Angelo RN RN tw2 Bj Archuleta ls3 Corrections: (The following items were deleted from the chart) 09:54 09:29 Pulse 75bpm; Resp 25bpm; Pulse Ox 100% RA; Temp 97.6F Oral; Pain 10/10; tw2 tw2
--- NOTE | 2018-02-14 13:39 | EDPHYS ---
Physician Documentation [facility] Name: Maurice Morfin Age: 68 yrs Sex: Male : 1950 Arrival Date: 02/14/2018 Time: 09:20 Bed 17 Private MD: Yung Thomas ED Physician Hector Torrez HPI: 02/14 09:44 This 68 yrs old Male presents to ER via Wheelchair with complaints of Chest rn Pain. 09:44 The patient or guardian reports chest pain that is located primarily in the substernal rn area. Onset: 4 day(s) ago. The pain radiates to the left arm. The chest pain is described as sharp, stabbing. Duration: The patient or guardian reports multiple episodes, that are intermittent. Modifying factors: The symptoms are alleviated by nothing. the symptoms are aggravated by nothing. Severity of pain: At its worst the pain was moderate in the emergency department the pain is unchanged. The patient has experienced similar episodes in the past. Reports chest pain, sharp/stabbing, intermittent, happening for a few days, no new cough, no hemoptysis, reports hx of AL with stent approx 9 years ago. No abd pain/vomiting. Does radiate to left arm. . Historical: - Allergies: 09:31 NKDA; tw2 - Home Meds: 09:56 albuterol sulfate 2.5 mg /3 mL (0.083 %) Inhl nebu for Chronic Obstructive Pulmonary tw2 Disease [Active]; aspirin 81 mg Oral chew 1 tab once daily [Active]; omeprazole 20 mg Oral cpDR 1 cap once daily for Gastroesophageal reflux [Active]; atorvastatin 80 mg Oral tab 1 tab once daily [Active]; Nitroglycerin 0.4 SL Oral [Active]; clopidogrel 75 mg Oral tab 1 tab once daily [Active]; losartan-hydrochlorothiazide 100-25 mg Oral tab [Active]; BRILINTA 90 mg Oral tab 1 tab 2 times per day [Active]; buspirone 15 mg Oral tab 1 tab 2 times per day [Active]; Hyzaar Oral [Active]; ipratropium bromide (bulk) miscellaneous powd daily [Active]; pentoxifylline 400 mg Oral TbER [Active]; - PMHx: 09:31 COPD; Dementia; Hypertension; Hernia; Cholelithiasis; CVA; enlarged prostate; AL; TIA; tw2 - PSHx: 09:31 L leg bypass; pacemaker; heart stent; tw2 - Immunization history:: Adult Immunizations up to date. - Social history:: Smoking status: Patient uses tobacco products, smokes one pack cigarettes per day. - Ebola Screening: : Patient denies travel to an Ebola-affected area in the 21 days before illness onset. - Family history:: not pertinent. - Hospitalizations: : No recent hospitalization is reported. ROS: 09:44 Constitutional: Negative for fever, chills, and weight loss, Eyes: Negative for injury, rn pain, redness, and discharge, Neck: Negative for injury, pain, and swelling, Cardiovascular: Negative for edema, Respiratory: Negative for wheezing Abdomen/GI: Negative for abdominal pain, vomiting, diarrhea, and constipation, Back: Negative for injury and pain, MS/Extremity: Negative for injury and deformity, Skin: Negative for injury, rash, and discoloration, Neuro: Negative for headache, weakness, numbness, tingling, and seizure. Exam: 09:44 Constitutional: This is a well developed, well nourished patient who is awake, alert, rn appears anxious and grimacing with intermittent pain Head/Face: Normocephalic, atraumatic. ENT: dry MM, no stridor Neck: Trachea midline, no thyromegaly or masses palpated, and no cervical lymphadenopathy. Supple, full range of motion without nuchal rigidity, or vertebral point tenderness. No Meningismus. Cardiovascular: Regular rate, no murmur Respiratory: + moderate tachypnea, no retractions, faint exp wheezing Abdomen/GI: soft, non-tender Skin: Warm, dry MS/ Extremity: Pulses equal, no cyanosis. Neuro: Awake and alert, GCS 15, oriented to person, place, time, and situation. Cranial nerves II-XII grossly intact. Motor strength 5/5 in all extremities. Sensory grossly intact Vital Signs: 09:29 BP 155 / 76; Pulse 75; Resp 25; Temp 97.6(O); Pulse Ox 100% on R/A; Pain 10/10; tw2 09:58 BP 161 / 79; Pulse 67; Resp 24; Pulse Ox 98% on R/A; Pain 10/10; tw2 11:04 BP 150 / 78; Pulse 69; Resp 20; Pulse Ox 100% on R/A; tw2 12:11 BP 147 / 86; Pulse 60; Resp 17; Pulse Ox 100% on R/A; tw2 13:33 BP 158 / 83; Pulse 78; Resp 17; Pulse Ox 98% on R/A; tw2 MDM: 09:22 Patient medically screened. rn 13:15 Differential diagnosis: acute myocardial infarction, acute pericarditis, coronary rn artery disease chest wall pain, costochondritis, gastroesophageal reflux disease (GERD), pleurisy, pneumothorax, pulmonary embolus, stable angina. Data reviewed: vital signs, nurses notes, lab test result(s), EKG, radiologic studies, CT scan, plain films, and as a result, I will discharge patient. Counseling: I had a detailed discussion with the patient and/or guardian regarding: the historical points, exam findings, and any diagnostic results supporting the discharge/admit diagnosis, lab results, radiology results, the need for outpatient follow up, to return to the emergency department if symptoms worsen or persist or if there are any questions or concerns that arise at home. Special discussion: Based on the patient's history, exam, and Dx evaluation, there is no indication for emergent intervention or inpatient Tx. It is understood by the patient/guardian that if the Sx's persist or worsen they need to return immediately for re-evaluation. I discussed with the patient/guardian in detail that at this point there is no indication for admission to the hospital. It is understood, however, that if the symptoms persist or worsen the patient needs to return immediately for re-evaluation. ED course: Pt improved, CT chest for PE negative, trop negative, ECG no ischemia, has been admitted multiple times for chest pain without cardiac cause, recommend outpt cardiology f/u. . 02/14 09:28 Order name: Basic Metabolic Panel; Complete Time: 10: rn 02/14 09:28 Order name: CBC with Diff; Complete Time: : rn 02/14 09:28 Order name: LFT's; Complete Time: : rn 02/14 09:28 Order name: NT PRO-BNP; Complete Time: 10: rn 02/14 09:28 Order name: Troponin (emerg Dept Use Only); Complete Time: 10: rn 02/14 11:57 Order name: Troponin (emerg Dept Use Only); Complete Time: 13:38 iw 02/14 09:28 Order name: XRAY Chest (1 view); Complete Time: 11: rn 02/14 09:29 Order name: CT Chest For PE Angio; Complete Time: 11:20 rn 02/14 09:28 Order name: EKG; Complete Time: : rn 02/14 09:28 Order name: Cardiac monitoring; Complete Time: : rn 02/14 09:28 Order name: EKG - Nurse/Tech; Complete Time: : rn 02/14 09:28 Order name: IV Saline Lock; Complete Time: : rn 02/14 09:28 Order name: Labs collected and sent; Complete Time: : rn 02/14 09:28 Order name: O2 Per Protocol; Complete Time: rn 02/14 09:28 Order name: O2 Sat Monitoring; Complete Time: : rn Administered Medications: 09:35 Drug: Zofran 4 mg Route: IVP; Site: right antecubital; tw2 09:59 Follow up: Response: No adverse reaction; Nausea is decreased tw2 09:37 Drug: morphine 4 mg Route: IVP; Site: right antecubital; tw2 09:59 Follow up: Response: No adverse reaction; Pain is unchanged, physician notified tw2 10:37 Drug: Demerol 25 mg Route: IVP; Site: right antecubital; tw2 11:10 Follow up: Response: No adverse reaction; Pain is decreased tw2 11:45 Drug: SOLU-Medrol 125 mg Route: IVP; Site: left upper arm; tw2 13:29 Follow up: Response: No adverse reaction tw2 11:47 Drug: Xopenex (3) 1.25 mg Route: Inhalation; tw2 13:33 Drug: Demerol 25 mg Route: IVP; Site: left upper arm; tw2 13:55 Follow up: Response: No adverse reaction; Pain is decreased tw2 Disposition: 02/14/18 13:39 Discharged to Home. Impression: Chest pain, unspecified. - Condition is Stable. - Discharge Instructions: Nonspecific Chest Pain, Chronic Obstructive Pulmonary Disease. - Prescriptions for Prednisone 20 mg Oral Tablet - take 3 tablet by ORAL route once daily for 5 days; 15 tablet. - Medication Reconciliation Form, Thank You Letter, Antibiotic Education, Prescription Opioid Use form. - Follow up: Private Physician; When: As needed; Reason: Recheck today's complaints, Re-evaluation by your physician. - Problem is new. - Symptoms have improved. Signatures: Dispatcher [employer] EDHector Amado MD MD rn Wise, Tara, RN RN tw2 Corrections: (The following items were deleted from the chart) 13:55 13:39 02/14/2018 13:39 Discharged to Home. Impression: Chest pain, unspecified. tw2 Condition is Stable. Forms are Medication Reconciliation Form, Thank You Letter, Antibiotic Education, Prescription Opioid Use. Follow up: Private Physician; When: As needed; Reason: Recheck today's complaints, Re-evaluation by your physician. Problem is new. Symptoms have improved. rn
[2018-02-14 14:02] VITALS: TEMP 97.6
[2018-02-14 14:08] VITALS: BP 158/83; O2SAT 98
== END 2018-02-14 13:55 | disposition home or self-care (01) ==
LOC: ER 09:18
DX: R07.9 Chest pain, unspecified (principal); I10 Essential (primary) hypertension; F17.210 Nicotine dependence, cigarettes, uncomplicated; J44.9 Chronic obstructive pulmonary disease, unspecified; F03.90 Unspecified dementia, unspecified severity, without behavioral disturbance, psychotic disturbance, mood disturbance, and anxiety; Z95.0 Presence of cardiac pacemaker; Z79.82 Long term (current) use of aspirin; Z86.73 Personal history of transient ischemic attack (TIA), and cerebral infarction without residual deficits; Z95.818 Presence of other cardiac implants and grafts
CPT/HCPCS: 36415; 71045; 71275; 80048; 80076; 83880; 84484 ×2; 85025; 93005; 99285; J2175 ×2; J2405; J2930; Q9967

== ENCOUNTER 2018-03-20 08:54 | Emergency (ER) | payer OTHER ==
--- OUTSIDE RECORDS SUMMARY | 2018-03-20 08:56 | XMS REPORT | Clinical Summary ---
:1950 Demographics Address [address] [place] [address] Home Phone Mobile Phone Preferred Language Yoruba Marital Status Unknown Scientology Affiliation Unknown Race White Ethnic Group Not or Author Organization [facility] Address [address] [place] [address] Support Name Relationship Address Phone Mami Morfin [address] [place] [address] Kvng Morfin [address] [place] [address] Care Team Providers Name Role Phone Yung Thomas [place] Primary Care Provider Allergies No Known Allergies Medications Medication Sig Dispensed Refills Start End Date Status Date albuterol (PROVENTIL) Take 2.5 mg by 0 Active 2.5 mg/0.5 mL Nebu nebulization 4 nebulizer solution (four) times daily. ipratropium Take 500 mcg by 0 Active (ATROVENT) 0.02 % nebulization nebulizer solution every 6 (six) hours. metoprolol Take 25 mg by 0 Active (LOPRESSOR) 25 MG mouth 2 (two) tablet times daily. omeprazole (PRILOSEC) Take 20 mg by 0 Active 20 MG capsule mouth daily. budesonide-formoterol Inhale 2 puffs 0 Active (SYMBICORT) 160-4.5 by mouth via mcg/actuation inhaler inhaler 2 (two) times daily. acetaminophen-codeine Take 1 tablet by 0 Active (TYLENOL #3) 300-30 mouth every 4 mg per tablet (four) hours as needed for Pain. metoprolol Take 25 mg by 0 Active (LOPRESSOR) 25 MG mouth 2 (two) tabletIndications: times daily. hypertension aspirin 81 MG EC Take 81 mg by 0 Active tabletIndications: mouth daily. myocardial infarction prevention aspirin 81 MG Take 1 tablet 90 tablet 3 12/04/19 Active chewable tablet (81 mg total) by 8 19 mouth daily. atorvastatin Take 0.5 tablets 90 tablet 3 12/03/19 Active (LIPITOR) 80 MG (40 mg total) by 8 19 tablet mouth nightly. clopidogrel (PLAVIX) Take 1 tablet 90 tablet 3 12/03/19 Active 75 mg tablet (75 mg total) by 8 19 mouth daily. aspirin 325 MG tablet Take 325 mg by 0 12/03/19 Discontinued mouth daily. 18 clopidogrel (PLAVIX) Take 75 mg by 0 12/03/19 Discontinued 75 mg tablet mouth daily. 18 pantoprazole Take 40 mg by 0 12/03/19 Discontinued (PROTONIX) 40 MG mouth daily. 18 tabletIndications: gastroesophageal reflux disease clopidogrel (PLAVIX) Take 75 mg by 0 12/03/19 Discontinued 75 mg mouth daily. 18 tabletIndications: since pacemaker 5 years ago atorvastatin Take 1 tablet 90 tablet 0 12/03/19 Discontinued (LIPITOR) 80 MG (80 mg total) by 8 18 tablet mouth nightly. Active Problems Problem Noted Date Ischemic stroke 11/30/2017 S/P admn tPA in diff fac w/n last 24 hr bef adm to crnt fac 11/30/2017 Essential hypertension 03/12/2017 Received tissue plasminogen activator (t-PA) less than 24 hours prior to 03/12 arrival Acute ischemic stroke 03/11/2017 HLD (hyperlipidemia) 01/17/2016 Peripheral vascular disease 01/14/2016 Postoperative anemia 01/14/2016 Coronary artery disease involving craig coronary artery 01/10/2016 PAD (peripheral artery disease) 01/10/2016 HTN (hypertension) 01/10/2016 Iliac artery stenosis, bilateral 01/10/2016 Unstable angina 01/10/2016 COPD (chronic obstructive pulmonary disease) 01/10/2016 Tobacco abuse 01/10/2016 ACS (acute coronary syndrome) 01/10/2016 Encounters Date Type Specialty Care Team Description 11/30/2017 - Hospital Encounter Intensive Care Eez Gil ACS (acute coronary 12/02/2017 MD Jose syndrome) ([facility]) after 03/19/2017 Social History Tobacco Use Types Packs/Day Years [...] INFLUENZA VACCINE 12/06/2017 Implants Implanted Type Area Book Publisher Device Shelf Model / Identifier Expiration Serial / Date Lot Grft Eptfe-Heparin Rng [id number] - [id number] Graft/Pa N/A: [employer] & 09/01/2019 [id number] / Implanted: Qty: 1 on 01/13/2016 by Oniel Smith MD [facility] Arterial ASSC: MED PRDT [id number] / Procedures Procedure Name Priority Date/Time Associated Comments Diagnosis ARRYTHMIA IMPLANT 02/03/2018 2:53 REPORT - SCAN PM DEPUTY DIRECTOR ARRYTHMIA IMPLANT 12/25/2017 8:00 REPORT - SCAN [...] CDT procedure are in the results section. after 03/19/2017 Results ARRYTHMIA IMPLANT REPORT - SCAN (02/03/2018 2:53 PM DEPUTY DIRECTOR)Only the most recent of3 resultswithin the time period is included. Narrative Performed At RHYTHM STRIP - SCAN (12/06/2017 2:00 PM CDT) Narrative Performed At TSH/Free T4 If Indicated (12/02/2017 3:11 AM CDT) TSH 3.16 0.35 - 4.94 uIU/mL [facility] Specimen Blood Performing Organization Address City/State/Zipcode Phone Number [place] [phone] [place] [address] CENTER CBC with platelet count + automated diff (12/02/2017 3:11 AM CDT)Only the most recent of3 resultswithin the time period is included. WBC 5.2 3.5 - 10.5 K/L [facility] RBC 4.07 (L) 4.63 - 6.08 M/L [facility] Hemoglobin 11.2 (L) 13.7 - 17.5 GM/DL [facility] Hematocrit 35.9 (L) 40.1 - 51.0 % [facility] MCV 88.2 79.0 - 92.2 fL [facility] MCH 27.5 25.7 - 32.2 pg [facility] MCHC 31.2 (L) 32.3 - 36.5 GM/DL [facility] RDW 16.9 (H) 11.6 - 14.4 % [facility] Platelets 161 150 - 450 K/CU MM [facility] MPV 10.7 9.4 - 12.4 fL [facility] nRBC 0 0 - 0 /100 WBC [facility] % Neutros 51 % [facility] % Lymphs 32 % [facility] % Monos 11 % [facility] % Eos 3 % [facility] % Baso 2 % [facility] # Neutros 2.67 1.78 - 5.38 K/L [facility] # Lymphs 1.68 1.32 - 3.57 K/L [facility] # Monos 0.58 0.30 - 0.82 K/L [facility] # Eos 0.18 0.04 - 0.54 K/L [facility] # Baso 0.08 0.01 - 0.08 K/L [facility] Immature Granulocytes-Relative 1 0 - 1 % [facility] Specimen Blood Performing Organization Address City/State/Zipcode Phone Number [facility] [address] [place] [address] CENTER Basic Metabolic Panel (12/02/2017 3:11 AM CDT)Only the most recent of3 resultswithin the time period is included. Sodium 135 (L) 136 - 145 meq/L [facility] Potassium 3.9 3.5 - 5.1 meq/L [facility] Chloride 106 98 - 107 meq/L [facility] CO2 22 22 - 29 meq/L [facility] BUN 13 7 - 21 mg/dL [facility] Creatinine 0.81 0.57 - 1.25 mg/dL [facility] Glucose 91 70 - 105 mg/dL [facility] Calcium 8.5 8.4 - 10.2 mg/dL [facility] EGFR 95Comment: ESTIMATED GFR IS mL/min/1.[address] [facility] NOT ACCURATE CREATININE [facility] CLEARANCE IN PREDICTING GLOMERULAR FILTRATION RATE. ESTIMATED GFR IS NOT APPLICABLE FOR DIALYSIS PATIENTS. Specimen Blood Performing Organization Address City/State/Zipcode Phone Number [facility] [address] [place] [address] CENTER Carotid doppler bilateral (12/01/2017 10:12 PM CDT) Ejection Fraction [facility] CPACS Impressions Performed At Right Impression [facility] CP[facility] 1. There is [...] Performed At LAB - Carotid Duplex Study [facility] Demographics Patient Name JEAN,Date of Study 12/01/2017 MAMI [id number] Age 67 Visit Number [id number] GenderMale Accession Number [id number] [facility] 1950 [facility] [id number] Hattie EverettJ. Jose Perez MD, Physician RPTUNG Procedure Type of Study: Cerebral: Carotid, CAROTID DOPPLER, BILATERAL. Indications for Study:Stroke. Patient Status:Routine. Study Location:Portable. Technical Quality:Adequate visualization. Risk Factors History of Disease + + + + !Diagnosis !Date!Comments ! + + + + !History/Risk!03/12/2017!Stroke, Current Smoker, PAD, HTN, HLD, CAD, ! 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 + + + + Procedure Note Interface, External Ris In - 12/02/2017 6:29 AM CDT PV LAB - Carotid Duplex Study Demographics Patient Name JEAN, Date of Study 12/01/2017 MAMI FLANNERYN [id number] Age 67 Visit Number [id number] Gender Male Accession Number [id number] Date of 1950 Referring [facility] Room Number [id number] Physician [place] City Superintendentaditi Hayes Interpreting Cristobal Perez MD, Physician KETTY Procedure Type of Study: Cerebral: Carotid, CAROTID DOPPLER, BILATERAL. Indications for Study:Stroke. Patient Status:Routine. Study Location:Portable. Technical Quality:Adequate visualization. Risk Factors History of Disease + + + + !Diagnosis !Date !Comments ! + + + + !History/Risk !03/12/2017!Stroke, Current Smoker, PAD, HTN, HLD, CAD, ! !Factors: ! !COPD, [place], Pacemaker, Fem-fem Bypass (2016) ! + + [...] 1.24. Performing Organization Address City/State/Zipcode Phone Number [facility] Troponin I (12/01/2017 8:17 PM CDT)Only the most recent of4 resultswithin the time period is included. Troponin I <0.01 0.00 - 0.03 ng/mL [facility] Specimen Blood Narrative Performed At [facility] Troponin I (TnI) levels must be interpreted [...] tachyarrhythmia. Performing Organization Address City/State/Zipcode Phone Number [facility] [address] [place] [address] CENTER ECHOCARDIOGRAM REPORT - SCAN (12/01/2017 6:50 PM CDT) Narrative Performed At CT brain without IV contrast portable (12/01/2017 6:30 PM CDT) Narrative Performed At FINAL REPORT [email or web address] CT head without contrast 12/01/2017 6:40 PM [...] MD Report Verified Date/Time:12/01/2017 18:41:06 Reading Location: [facility] Radiology Reading Room Procedure Note Interface, External [...] Report Verified Date/Time: 12/01/2017 18:41:06 Reading Location: [facility] Radiology Reading Room Performing Organization Address City/[facility]/Zipcode Phone Number [facility] TRANSFUSION [facility]ICE REPORT - SCAN (12/01/2017 6:03 PM CDT) Narrative Performed At Potassium (12/01/2017 3:53 PM CDT) Potassium 3.7 3.5 - 5.1 meq/L [facility] Specimen Blood Narrative Performed At Check Serum Potassium level 2 hours after [facility] oral potassium replacement completed or 30 min after intravenous potassium replacement. Performing Organization Address City/State/Zipcode Phone Number [address] [address] CENTER ECG 12 lead (12/01/2017 11:15 AM CDT)Only the most recent of3 resultswithin the time period is included. Narrative Performed At Ventricular Rate 60 BPM GE MUSE Atrial Rate 60 BPM P-R Interval 150 ms QRS Duration 82 ms Q-T Interval 404 ms QTC Calculation(Bazett) 404 ms P Fortescue -12 degrees R [place]ue 17 degrees T [place]ue 69 degrees Electronic atrial pacemaker Nonspecific T [...] 404 ms QTC Calculation(Bazett) 404 ms P Fortescue -12 degrees R [place] 17 degrees T [place] 69 degrees Electronic atrial pacemaker Nonspecific T wave abnormality Abnormal ECG When compared with ECG of 01-DEC-2017 07:44, Nonspecific T wave abnormality has replaced inverted T waves in Lateral leads Confirmed by Tyler Hickman ([id number]) on 12/01/2017 11:03:52 PM Performing Organization Address City/State/[facility] Phone Number GE MUSE Pacemaker Check (12/01/2017 10:56 AM CDT) Narrative Performed At Sakshi Britt RN 12/01/2017 10:56 AM Performed pacemaker interrogation per order.Preliminary report placed under cardiac studies in chart. 1. Normal device function 2. No events SAKSHI BRITT RN 12/01/2017 10:56 AM [id number] Transthoracic 2D echo w/ doppler (cw/pw/color) (12/01/2017 9:37 AM CDT) Ejection Fraction [facility] Narrative Performed At Transthoracic Echocardiography Report (TTE) [facility] Demographics Patient Name JEAN, Date of Study 12/01/2017 MAMI [id number] GenderMale Visit Number [id number] Room Number [id number] Number Date of Birth1950Referring Physician Jostin Sevilla MD Age67 year(s)City Superintendent Roxane Ragsdale [facility] AnalystAlex Mod[place] InterpretingStpark Ritter Physician Procedure Type of Study TTE procedure:2DECHO W DOPPLER(CW/PW/COLOR) (Routine) Indications:Suspected cardiac source of emboli. Clinical History HGB 11.3 HCT 35.2 % DEFINITY 4ML ANGINA, COPD, CAD, CVA (03/2017), DEMENTIA, SHI, EMPHYSEMA, HTN, HLD, [place] PPM (2008), SOB, SMOKER, TIA, PCI (01/20/2016), [...] Study 12/01/2017 MAMI Gender Male Visit Number [id number] Race Room Number 7515 Number Date of 1950 Referring Physician Jostin Sevilla MD Age 67 year(s) City Superintendent Roxane Jn [facility] Filter Tank Operator Edward Salvador Interpreting Krista Ritter Physician Procedure Type of Study TTE procedure:2DECHO W DOPPLER(CW/PW/COLOR) (Routine) Indications:Suspected cardiac source of emboli. Clinical History HGB 11.3 HCT 35.2 % DEFINITY 4ML ANGINA, COPD, CAD, CVA (03/2017), DEMENTIA, SHI, EMPHYSEMA, HTN, HLD, [place] PPM (2008), SOB, SMOKER, TIA, PCI (01/20/2016), [...] TR Gradient: 18.57 mmHg Performing Organization Address City/State/Zipcode Phone Number [facility] Phosphorus (12/01/2017 8:14 AM CDT) Phosphorus 2.6Comment: Specimen slightly 2.3 - 4.7 mg/dL [facility] Specimen Blood Performing Organization Address City/State/[facility] Phone Number [address] [address] CENTER Magnesium (12/01/2017 8:14 AM CDT) Magnesium 2.2Comment: Specimen slightly 1.6 - 2.6 mg/dL [facility] hemolyzed [facility] Specimen Blood Performing Organization Address [facility] Phone Number [address] [address] CENTER Hemoglobin A1c (12/01/2017 3:33 AM CDT)Only the most recent of2 resultswithin the time period is included. Hemoglobin A1C 6.0 4.3 - 6.1 % [facility] Specimen Blood Performing Organization Address [facility] Phone Number [address] [address] [phone] CENTER Fasting lipid panel (12/01/2017 3:33 AM CDT) Triglycerides 119 mg/dL [facility] Cholesterol 144 mg/dL [facility] HDL 26 mg/dL [facility] LDL Calculated 94 mg/dL [facility] Specimen Blood Narrative Performed At [facility] Triglyceride Reference Range: Low Risk <150 [id number] High Risk 200-499 Very High Risk>=500 Cholesterol Reference Range: Low Risk <200 [id number] High Risk>240 HDL Cholesterol Reference Range: Low Risk >=60 High Risk <40 LDL Cholesterol Reference Range: Optimal<100 Near [id number] [id number] [id number] Very High >=190 Fasting Performing Organization Address [facility] Phone Number [address] [address] [phone] CENTER Type and screen, automated (11/30/2017 5:41 PM CDT) ABO/RH AUTOMATED (BEAKER) O POSITIVE [facility] Ab Scrn NEGATIVE [facility] Specimen Blood Performing Organization Address City/[facility]/Zipcode Phone Number [facility] [address] [place], [place] [phone] Vitamin B12 and Folate (11/30/2017 5:41 PM CDT) Vitamin B12 1,185 (H) 213 - 816 pg/mL [facility] Folate 2.3 (L) >=7.0 ng/mL [facility] Specimen Blood Performing Organization Address City/State/Zipcode Phone Number [facility] [address] [place], [place] [phone] CENTER after 03/19/2017 Insurance Payer Benefit Plan / Group Subscriber ID Type Phone Address [employer] - UNITED MEDICARE HMO xxxxxxxxxxx MEDICARE MGD CARE MEDICAID MEDICAID [facility] xxxxxxxxx Medicaid Guarantor Name Account Type Relation to Date of Phone Billing Patient Address Mami Morfin Personal/Family Self 1950 [address] (Home) [place] [address] Mami Morfin Personal/Family Self 1950 [address] (Home) [place] [address] Advance Directives For more information, please contact:[facility] [place] [address] [phone] Code Status Date Activated Date Inactivated Comments Full Code 11/30/2017 4:52 PM 12/02/2017 4:13 PM This code status was determined by: Patient Full Code 01/13/2016 11:29 AM 01/14/2016 8:29 PM This code status was determined by: Patient
--- OUTSIDE RECORDS SUMMARY | 2018-03-20 08:57 | XMS REPORT ---
:1950 [facility] Address [address] [place] [address] Care Team Providers Name Role Phone LOU [...] Range Comments THYROID STIMULATING HORMONE (BEAKER) (test remm=813) 3.16 uIU/mL 0.35-4.94 BASIC METABOLIC [id number] 03:35:00 Test Item Value Reference Range Comments SODIUM (BEAKER) (test 135 meq/L 136-145 fbac=813) POTASSIUM (BEAKER) (test 3.9 meq/L 3.5-5.1 wkna=291) CHLORIDE (BEAKER) (test 106 meq/L 98-107 yrpa=315) CO2 (BEAKER) (test 22 meq/L 22-29 fvwo=700) BLOOD UREA NITROGEN 13 mg/dL 7-21 (BEAKER) (test hiel=750) CREATININE (BEAKER) (test 0.81 mg/dL 0.57-1.25 ykhw=261) GLUCOSE RANDOM (BEAKER) 91 mg/dL 70-105 (test jgpd=278) CALCIUM (BEAKER) (test 8.5 mg/dL 8.4-10.2 bfqb=736) EGFR (BEAKER) (test 95 mL/min/1.73 sq m ESTIMATED GFR IS NOT jsuf=5706) ACCURATE CREATININE CLEARANCE IN PREDICTING GLOMERULAR FILTRATION RATE. ESTIMATED GFR IS NOT APPLICABLE FOR DIALYSIS PATIENTS. CBC W/PLT COUNT & AUTO [id number] 03:24:00 Test Item Value Reference Range Comments WHITE BLOOD CELL COUNT (BEAKER) (test mjff=506) 5.2 K/ L 3.5-10.5 RED BLOOD CELL COUNT (BEAKER) (test sxrv=904) 4.07 M/ L 4.63-6.08 HEMOGLOBIN (BEAKER) (test axhq=553) 11.2 GM/DL 13.7-17.5 HEMATOCRIT (BEAKER) (test dcsh=290) 35.9 % 40.1-51.0 MEAN CORPUSCULAR VOLUME (BEAKER) (test frga=693) 88.2 fL 79.0-92.2 MEAN CORPUSCULAR HEMOGLOBIN (BEAKER) (test 27.5 pg 25.7-32.2 cdou=783) MEAN CORPUSCULAR HEMOGLOBIN CONC (BEAKER) (test 31.2 GM/DL 32.3-36.5 knix=804) RED CELL DISTRIBUTION WIDTH (BEAKER) (test 16.9 % 11.6-14.4 nbbq=449) PLATELET COUNT (BEAKER) (test dmrw=720) 161 K/CU MM 150-450 MEAN PLATELET VOLUME (BEAKER) (test gcvw=440) 10.7 fL 9.4-12.4 NUCLEATED RED BLOOD CELLS (BEAKER) (test 0 /100 WBC 0-0 obzv=887) NEUTROPHILS RELATIVE PERCENT (BEAKER) (test 51 % iesl=321) LYMPHOCYTES RELATIVE PERCENT (BEAKER) (test 32 % ucsu=906) MONOCYTES RELATIVE PERCENT (BEAKER) (test 11 % njgu=788) EOSINOPHILS RELATIVE PERCENT (BEAKER) (test 3 % euhj=498) BASOPHILS RELATIVE PERCENT (BEAKER) (test 2 % bbks=133) NEUTROPHILS ABSOLUTE COUNT (BEAKER) (test 2.67 K/ L 1.78-5.38 qyfy=820) LYMPHOCYTES ABSOLUTE COUNT (BEAKER) (test 1.68 K/ L 1.32-3.57 muvt=561) MONOCYTES ABSOLUTE COUNT (BEAKER) (test 0.58 K/ L 0.30-0.82 fbuz=201) EOSINOPHILS ABSOLUTE COUNT (BEAKER) (test 0.18 K/ L 0.04-0.54 jyco=465) BASOPHILS ABSOLUTE COUNT (BEAKER) (test 0.08 K/ L 0.01-0.08 veca=014) IMMATURE GRANULOCYTES-RELATIVE PERCENT (BEAKER) 1 % 0-1 (test ivvz=0975) TROPONIN [id number] 20:57:00 Test Item Value Reference Range Comments TROPONIN I (KYARA) (test kgnb=817) < ng/mL 0.00-0.03 Troponin I (TnI) levels [...] persistent tachyarrhythmia.CT BRAIN WITHOUT IV CONTRAST - [id number] 18:41:00Reason for exam:->Post tPAFINAL REPORT CT head [...] Paez Verified Date/Time: 12/01/2017 18:41:06 Reading Location: [facility] Radiology Reading Room TROPONIN [id number] 17:00:00 Test Item Value Reference Range Comments TROPONIN I (KYARA) (test ngax=575) < ng/mL 0.00-0.03 Troponin I (TnI) levels [...] failure, acidosis, acute neurological disease, and persistent tachyarrhythmia.[id number] 16:23:00 Test Item Value Reference Range Comments POTASSIUM (BEAKER) (test tghj=362) 3.7 meq/L 3.5-5.1 Check Serum Potassium level 2 hours after oral potassium replacement completed or 30 min after intravenous potassium replacement.[id number] 11:59:00 Test Item Value Reference Range Comments MAGNESIUM (BEAKER) (test 2.2 mg/dL 1.6-2.6 Specimen slightly hemolyzed xivh=998) [id number] 11:59:00 Test Item Value Reference Range Comments PHOSPHORUS (BEAKER) (test 2.6 mg/dL 2.3-4.7 Specimen slightly hemolyzed jezv=041) HEMOGLOBIN [id number] 11:49:00 Test Item Value Reference Range Comments HEMOGLOBIN A1C (BEAKER) (test lozy=861) 6.0 % 4.3-6.1 TROPONIN [id number] 08:40:00 Test Item Value Reference Range Comments TROPONIN I (BEAKER) (test reux=518) < ng/mL 0.00-0.03 Troponin I (TnI) levels [...] acidosis, acute neurological disease, and persistent tachyarrhythmia.LIPID [id number] 04:39:00 Test Item Value Reference Range Comments TRIGLYCERIDES (BEAKER) (test sgie=474) 119 mg/dL CHOLESTEROL (BEAKER) (test mxod=500) 144 mg/dL HDL CHOLESTEROL (BEAKER) (test fwon=416) 26 mg/dL LDL CHOLESTEROL CALCULATED (BEAKER) (test 94 mg/dL wlql=568) Triglyceride Reference Range: Low Risk <150 Borderline 150- 199 High Risk 200-499 Very High Risk >=500Cholesterol Reference Range: Low Risk <200 Borderline 200-239 High Risk > 240HDL Cholesterol Reference Range: Low Risk >=60 High Risk <40LDL Cholesterol Reference Range: Optimal <100 Near Optimal 100-129 Borderline 130-159 High 160-189 Very High >=190 FastingBASIC METABOLIC [id number] 04:39:00 Test Item Value Reference Range Comments SODIUM (BEAKER) (test 136 meq/L 136-145 uuav=207) POTASSIUM (BEAKER) (test 3.7 meq/L 3.5-5.1 rbfa=283) CHLORIDE (BEAKER) (test 105 meq/L 98-107 rwhs=990) CO2 (BEAKER) (test 23 meq/L 22-29 dryd=562) BLOOD UREA NITROGEN 14 mg/dL 7-21 (BEAKER) (test uqid=235) CREATININE (BEAKER) (test 0.86 mg/dL 0.57-1.25 qmqi=858) GLUCOSE RANDOM (BEAKER) 94 mg/dL 70-105 (test ocaz=427) CALCIUM (BEAKER) (test 8.8 mg/dL 8.4-10.2 bqvz=432) EGFR (BEAKER) (test 88 mL/min/1.73 sq m ESTIMATED GFR IS NOT somp=5692) ACCURATE CREATININE CLEARANCE IN PREDICTING GLOMERULAR FILTRATION RATE. ESTIMATED GFR IS NOT APPLICABLE FOR DIALYSIS PATIENTS. FastingCBC W/PLT COUNT & AUTO [id number] 04:25:00 Test Item Value Reference Range Comments WHITE BLOOD CELL COUNT (BEAKER) (test ooyc=587) 5.0 K/ L 3.5-10.5 RED BLOOD CELL COUNT (BEAKER) (test dbof=553) 4.03 M/ L 4.63-6.08 HEMOGLOBIN (BEAKER) (test aagv=830) 11.3 GM/DL 13.7-17.5 HEMATOCRIT (BEAKER) (test abtc=860) 35.2 % 40.1-51.0 MEAN CORPUSCULAR VOLUME (BEAKER) (test psai=374) 87.3 fL 79.0-92.2 MEAN CORPUSCULAR HEMOGLOBIN (BEAKER) (test 28.0 pg 25.7-32.2 rfkz=553) MEAN CORPUSCULAR HEMOGLOBIN CONC (BEAKER) (test 32.1 GM/DL 32.3-36.5 dyml=681) RED CELL DISTRIBUTION WIDTH (BEAKER) (test 16.9 % 11.6-14.4 cwdt=919) PLATELET COUNT (BEAKER) (test plxo=145) 179 K/CU MM 150-450 MEAN PLATELET VOLUME (BEAKER) (test zhxj=454) 11.6 fL 9.4-12.4 NUCLEATED RED BLOOD CELLS (BEAKER) (test 0 /100 WBC 0-0 cisg=490) NEUTROPHILS RELATIVE PERCENT (BEAKER) (test 48 % ghul=140) LYMPHOCYTES RELATIVE PERCENT (BEAKER) (test 36 % xezf=078) MONOCYTES RELATIVE PERCENT (BEAKER) (test 10 % cllv=211) EOSINOPHILS RELATIVE PERCENT (BEAKER) (test 3 % ddhs=967) BASOPHILS RELATIVE PERCENT (BEAKER) (test 2 % gjuh=728) NEUTROPHILS ABSOLUTE COUNT (BEAKER) (test 2.41 K/ L 1.78-5.38 yytj=620) LYMPHOCYTES ABSOLUTE COUNT (BEAKER) (test 1.80 K/ L 1.32-3.57 eabt=820) MONOCYTES ABSOLUTE COUNT (BEAKER) (test 0.52 K/ L 0.30-0.82 khfh=347) EOSINOPHILS ABSOLUTE COUNT (BEAKER) (test 0.17 K/ L 0.04-0.54 xscl=709) BASOPHILS ABSOLUTE COUNT (BEAKER) (test 0.08 K/ L 0.01-0.08 hzyq=378) IMMATURE GRANULOCYTES-RELATIVE PERCENT (BEAKER) 1 % 0-1 (test pbes=7493) HEMOGLOBIN [id number] 22:29:00 Test Item Value Reference Range Comments HEMOGLOBIN A1C (BEAKER) (test dugl=020) 5.9 % 4.3-6.1 VITAMIN B12 AND [id number] 18:47:00 Test Item Value Reference Range Comments VITAMIN B12 (BEAKER) (test vxku=595) 1185 pg/mL 213-816 FOLATE (BEAKER) (test lcev=409) 2.3 ng/mL >=7.0 TROPONIN [id number] 18:18:00 Test Item Value Reference Range Comments TROPONIN I (BEAKER) (test vwmf=075) < ng/mL 0.00-0.03 Troponin I (TnI) levels [...] acute neurological disease, and persistent tachyarrhythmia.BASIC METABOLIC [id number] 18:10:00 Test Item Value Reference Range Comments SODIUM (BEAKER) (test 136 meq/L 136-145 slsn=255) POTASSIUM (BEAKER) (test 3.8 meq/L 3.5-5.1 lopt=797) CHLORIDE (BEAKER) (test 102 meq/L 98-107 tkeg=129) CO2 (BEAKER) (test 23 meq/L 22-29 skqc=842) BLOOD UREA NITROGEN 10 mg/dL 7-21 (BEAKER) (test hwws=145) CREATININE (BEAKER) (test 0.88 mg/dL 0.57-1.25 qqvg=640) GLUCOSE RANDOM (BEAKER) 102 mg/dL 70-105 (test cvbd=386) CALCIUM (BEAKER) (test 9.3 mg/dL 8.4-10.2 jiqv=427) EGFR (BEAKER) (test 86 mL/min/1.73 sq m ESTIMATED GFR IS NOT onbz=3676) ACCURATE CREATININE CLEARANCE IN PREDICTING GLOMERULAR FILTRATION RATE. ESTIMATED GFR IS NOT APPLICABLE FOR DIALYSIS PATIENTS. CBC W/PLT COUNT & AUTO [id number] 17:52:00 Test Item Value Reference Range Comments WHITE BLOOD CELL COUNT (BEAKER) (test idsk=780) 8.8 K/ L 3.5-10.5 RED BLOOD CELL COUNT (BEAKER) (test vgtz=851) 4.53 M/ L 4.63-6.08 HEMOGLOBIN (BEAKER) (test ntkr=820) 12.6 GM/DL 13.7-17.5 HEMATOCRIT (BEAKER) (test eyod=708) 39.4 % 40.1-51.0 MEAN CORPUSCULAR VOLUME (BEAKER) (test ibkv=117) 87.0 fL 79.0-92.2 MEAN CORPUSCULAR HEMOGLOBIN (BEAKER) (test 27.8 pg 25.7-32.2 pbcq=604) MEAN CORPUSCULAR HEMOGLOBIN CONC (BEAKER) (test 32.0 GM/DL 32.3-36.5 yuoy=905) RED CELL DISTRIBUTION WIDTH (BEAKER) (test 17.0 % 11.6-14.4 wxtx=196) PLATELET COUNT (BEAKER) (test safj=302) 186 K/CU MM 150-450 MEAN PLATELET VOLUME (BEAKER) (test mlvh=972) 10.5 fL 9.4-12.4 NUCLEATED RED BLOOD CELLS (BEAKER) (test 0 /100 WBC 0-0 pxqn=417) NEUTROPHILS RELATIVE PERCENT (BEAKER) (test 69 % ptxu=225) LYMPHOCYTES RELATIVE PERCENT (BEAKER) (test 20 % fybf=808) MONOCYTES RELATIVE PERCENT (BEAKER) (test 9 % sjed=042) EOSINOPHILS RELATIVE PERCENT (BEAKER) (test 1 % cvmz=533) BASOPHILS RELATIVE PERCENT (BEAKER) (test 1 % mhey=792) NEUTROPHILS ABSOLUTE COUNT (BEAKER) (test 6.12 K/ L 1.78-5.38 zgcn=716) LYMPHOCYTES ABSOLUTE COUNT (BEAKER) (test 1.72 K/ L 1.32-3.57 tnav=080) MONOCYTES ABSOLUTE COUNT (BEAKER) (test 0.75 K/ L 0.30-0.82 lopb=283) EOSINOPHILS ABSOLUTE COUNT (BEAKER) (test 0.08 K/ L 0.04-0.54 ixmx=717) BASOPHILS ABSOLUTE COUNT (BEAKER) (test 0.09 K/ L 0.01-0.08 ymen=005) IMMATURE GRANULOCYTES-RELATIVE PERCENT (BEAKER) 1 % 0-1 (test bhts=0487) BASIC METABOLIC [id number] 07:51:00 Test Item Value Reference Range Comments SODIUM (BEAKER) (test 136 meq/L 136-145 jfnr=614) POTASSIUM (BEAKER) (test 4.0 meq/L 3.5-5.1 zsot=788) CHLORIDE (BEAKER) (test 106 meq/L 98-107 ulew=326) CO2 (BEAKER) (test 23 meq/L 22-29 zqdr=302) BLOOD UREA NITROGEN 15 mg/dL 7-21 (BEAKER) (test qcvk=351) CREATININE (BEAKER) (test 0.92 mg/dL 0.57-1.25 nasa=406) GLUCOSE RANDOM (BEAKER) 92 mg/dL 70-105 (test kwkb=875) CALCIUM (BEAKER) (test 8.7 mg/dL 8.4-10.2 oygs=514) EGFR (BEAKER) (test 82 mL/min/1.73 sq m ESTIMATED GFR IS NOT gdfm=7558) ACCURATE CREATININE CLEARANCE IN PREDICTING GLOMERULAR FILTRATION RATE. ESTIMATED GFR IS NOT APPLICABLE FOR DIALYSIS PATIENTS. CBC W/PLT COUNT & AUTO [id number] 05:55:00 Test Item Value Reference Range Comments WHITE BLOOD CELL COUNT (BEAKER) (test wqun=273) 5.9 K/ L 3.5-10.5 RED BLOOD CELL COUNT (BEAKER) (test cqdw=125) 4.25 M/ L 4.63-6.08 HEMOGLOBIN (BEAKER) (test hejv=789) 12.3 GM/DL 13.7-17.5 HEMATOCRIT (BEAKER) (test nvqg=607) 37.8 % 40.1-51.0 MEAN CORPUSCULAR VOLUME (BEAKER) (test uxvo=474) 88.9 fL 79.0-92.2 MEAN CORPUSCULAR HEMOGLOBIN (BEAKER) (test 28.9 pg 25.7-32.2 ppav=003) MEAN CORPUSCULAR HEMOGLOBIN CONC (BEAKER) (test 32.5 GM/DL 32.3-36.5 hwfd=074) RED CELL DISTRIBUTION WIDTH (BEAKER) (test 15.9 % 11.6-14.4 ufkb=408) PLATELET COUNT (BEAKER) (test xcyv=108) 173 K/CU MM 150-450 MEAN PLATELET VOLUME (BEAKER) (test rcpb=866) 11.5 fL 9.4-12.4 NUCLEATED RED BLOOD CELLS (BEAKER) (test 0 /100 WBC 0-0 ovct=781) NEUTROPHILS RELATIVE PERCENT (BEAKER) (test 48 % syeo=384) LYMPHOCYTES RELATIVE PERCENT (BEAKER) (test 34 % vrmh=744) MONOCYTES RELATIVE PERCENT (BEAKER) (test 12 % xcnx=232) EOSINOPHILS RELATIVE PERCENT (BEAKER) (test 4 % zcuf=257) BASOPHILS RELATIVE PERCENT (BEAKER) (test 2 % mnbd=510) NEUTROPHILS ABSOLUTE COUNT (BEAKER) (test 2.85 K/ L 1.78-5.38 vqgz=631) LYMPHOCYTES ABSOLUTE COUNT (BEAKER) (test 2.02 K/ L 1.32-3.57 xmea=127) MONOCYTES ABSOLUTE COUNT (BEAKER) (test 0.68 K/ L 0.30-0.82 ccvq=857) EOSINOPHILS ABSOLUTE COUNT (BEAKER) (test 0.25 K/ L 0.04-0.54 kudj=673) BASOPHILS ABSOLUTE COUNT (BEAKER) (test 0.09 K/ L 0.01-0.08 zsbo=095) IMMATURE GRANULOCYTES-RELATIVE PERCENT (BEAKER) 1 % 0-1 (test yoer=0505) CBC W/PLT COUNT & AUTO [id number] 05:15:00 Test Item Value Reference Range Comments WHITE BLOOD CELL COUNT (BEAKER) (test jkqt=101) 5.4 K/ L 3.5-10.5 RED BLOOD CELL COUNT (BEAKER) (test ogeg=471) 4.34 M/ L 4.63-6.08 HEMOGLOBIN (BEAKER) (test jaud=176) 12.5 GM/DL 13.7-17.5 HEMATOCRIT (BEAKER) (test dvnr=459) 39.0 % 40.1-51.0 MEAN CORPUSCULAR VOLUME (BEAKER) (test itsr=133) 89.9 fL 79.0-92.2 MEAN CORPUSCULAR HEMOGLOBIN (BEAKER) (test 28.8 pg 25.7-32.2 ydmp=628) MEAN CORPUSCULAR HEMOGLOBIN CONC (BEAKER) (test 32.1 GM/DL 32.3-36.5 bxou=166) RED CELL DISTRIBUTION WIDTH (BEAKER) (test 15.9 % 11.6-14.4 ofss=830) PLATELET COUNT (BEAKER) (test uapd=548) 162 K/CU MM 150-450 MEAN PLATELET VOLUME (BEAKER) (test kffu=865) 10.6 fL 9.4-12.4 NUCLEATED RED BLOOD CELLS (BEAKER) (test 0 /100 WBC 0-0 vrgn=643) NEUTROPHILS RELATIVE PERCENT (BEAKER) (test 52 % edbt=758) LYMPHOCYTES RELATIVE PERCENT (BEAKER) (test 31 % hojf=192) MONOCYTES RELATIVE PERCENT (BEAKER) (test 11 % wput=287) EOSINOPHILS RELATIVE PERCENT (BEAKER) (test 4 % scwh=751) BASOPHILS RELATIVE PERCENT (BEAKER) (test 2 % hdoz=614) NEUTROPHILS ABSOLUTE COUNT (BEAKER) (test 2.78 K/ L 1.78-5.38 khax=636) LYMPHOCYTES ABSOLUTE COUNT (BEAKER) (test 1.69 K/ L 1.32-3.57 edob=292) MONOCYTES ABSOLUTE COUNT (BEAKER) (test 0.59 K/ L 0.30-0.82 kjdj=337) EOSINOPHILS ABSOLUTE COUNT (BEAKER) (test 0.21 K/ L 0.04-0.54 awvb=275) BASOPHILS ABSOLUTE COUNT (BEAKER) (test 0.09 K/ L 0.01-0.08 ecgz=580) IMMATURE GRANULOCYTES-RELATIVE PERCENT (BEAKER) 1 % 0-1 (test lygn=3647) CT, BRAIN, WITHOUT [id number] 15:31:00FINAL REPORT CT head without contrast 03/12/2017 [...] Paez Verified Date/Time: 03/12/2017 15:31:17 Reading Location: [address] Neuro Reading Room TROPOROCIO [id number] 15:26:00 Test Item Value Reference Range Comments TROPONIN I (BEAKER) (test qdos=696) 0.02 ng/mL 0.00-0.03 Troponin I (TnI) levels [...] acidosis, acute neurological disease, and persistent tachyarrhythmia.HEMOGLOBIN [id number] 12:38:00 Test Item Value Reference Range Comments HEMOGLOBIN A1C (BEAKER) (test baqe=072) 5.6 % 4.3-6.1 FastingRAD, CHEST, 1 VIEW, NON [id number] 10:06:00Reason for exam:->rule out pneumoniaShould this be [...] Benites Verified Date/Time: 03/12/2017 10:06:57 Reading Location: [facility] Radiology Reading Room [id number] 09:08:00 Test Item Value Reference Range Comments HOMOCYSTEINE (BEAKER) (test jwkt=779) 11.8 umol/L 5.1-15.4 FastingCREATINE KINASE (CK), TOTAL AND [id number] 08:55:00 Test Item Value Reference Range Comments CREATINE KINASE TOTAL (BEAKER) (test ajrv=694) 59 U/L 29-200 CREATINE KINASE-MB (BEAKER) (test afgu=890) 1.0 ng/mL 0.0-6.6 CREATINE KINASE-MB INDEX (BEAKER) (test dqgk=023) 1.7 % CK-MB Reference Range:<6.7 Normal6.7-10.0 Borderline>10.0 AbnormalFastingFastingTROPONIN [id number] 08:55:00 Test Item Value Reference Range Comments TROPONIN I (BEAKER) (test fqat=490) < ng/mL 0.00-0.03 Troponin I (TnI) levels [...] acidosis, acute neurological disease, and persistent tachyarrhythmia.FastingLIPID [id number] 08:48:00 Test Item Value Reference Range Comments TRIGLYCERIDES (BEAKER) (test qsjg=315) 151 mg/dL CHOLESTEROL (BEAKER) (test zgax=311) 147 mg/dL HDL CHOLESTEROL (BEAKER) (test ztpi=543) 29 mg/dL LDL CHOLESTEROL CALCULATED (BEAKER) (test 88 mg/dL dtjv=217) Triglyceride Reference Range: Low Risk <150 Borderline 150- 199 High Risk 200-499 Very High Risk >=500Cholesterol Reference Range: Low Risk <200 Borderline 200-239 High Risk > 240HDL Cholesterol Reference Range: Low Risk >=60 High Risk <40LDL Cholesterol Reference Range: Optimal <100 Near Optimal 100-129 Borderline 130-159 High 160-189 Very High >=190 FastingBASIC METABOLIC [id number] 08:48:00 Test Item Value Reference Range Comments SODIUM (BEAKER) (test 136 meq/L 136-145 aiyv=001) POTASSIUM (BEAKER) (test 4.4 meq/L 3.5-5.1 jbeu=124) CHLORIDE (BEAKER) (test 104 meq/L 98-107 kpaj=029) CO2 (BEAKER) (test 25 meq/L 22-29 lmtg=987) BLOOD UREA NITROGEN 15 mg/dL 7-21 (BEAKER) (test ihig=056) CREATININE (BEAKER) (test 0.87 mg/dL 0.57-1.25 qswy=283) GLUCOSE RANDOM (BEAKER) 102 mg/dL 70-105 (test vlvm=085) CALCIUM (BEAKER) (test 8.9 mg/dL 8.4-10.2 mbwe=330) EGFR (BEAKER) (test 87 mL/min/1.73 sq m ESTIMATED GFR IS NOT xook=8049) ACCURATE CREATININE CLEARANCE IN PREDICTING GLOMERULAR FILTRATION RATE. ESTIMATED GFR IS NOT APPLICABLE FOR DIALYSIS PATIENTS. FastingCBC W/PLT COUNT & AUTO [id number] 08:24:00 Test Item Value Reference Range Comments WHITE BLOOD CELL COUNT (BEAKER) (test wnpb=131) 5.7 K/ L 3.5-10.5 RED BLOOD CELL COUNT (BEAKER) (test hhhv=949) 4.23 M/ L 4.63-6.08 HEMOGLOBIN (BEAKER) (test gpbp=137) 12.3 GM/DL 13.7-17.5 HEMATOCRIT (BEAKER) (test nkkf=688) 37.9 % 40.1-51.0 MEAN CORPUSCULAR VOLUME (BEAKER) (test ykty=128) 89.6 fL 79.0-92.2 MEAN CORPUSCULAR HEMOGLOBIN (BEAKER) (test 29.1 pg 25.7-32.2 nphr=363) MEAN CORPUSCULAR HEMOGLOBIN CONC (BEAKER) (test 32.5 GM/DL 32.3-36.5 jgjn=076) RED CELL DISTRIBUTION WIDTH (BEAKER) (test 15.9 % 11.6-14.4 ykqd=187) PLATELET COUNT (BEAKER) (test ijma=091) 156 K/CU MM 150-450 MEAN PLATELET VOLUME (BEAKER) (test tzkv=706) 10.2 fL 9.4-12.4 NUCLEATED RED BLOOD CELLS (BEAKER) (test 0 /100 WBC 0-0 pokg=875) NEUTROPHILS RELATIVE PERCENT (BEAKER) (test 47 % hhis=223) LYMPHOCYTES RELATIVE PERCENT (BEAKER) (test 37 % uuxd=281) MONOCYTES RELATIVE PERCENT (BEAKER) (test 12 % opvd=725) EOSINOPHILS RELATIVE PERCENT (BEAKER) (test 3 % llwe=428) BASOPHILS RELATIVE PERCENT (BEAKER) (test 2 % wtpa=092) NEUTROPHILS ABSOLUTE COUNT (BEAKER) (test 2.66 K/ L 1.78-5.38 dlgs=622) LYMPHOCYTES ABSOLUTE COUNT (BEAKER) (test 2.09 K/ L 1.32-3.57 wufq=915) MONOCYTES ABSOLUTE COUNT (BEAKER) (test 0.70 K/ L 0.30-0.82 flmn=220) EOSINOPHILS ABSOLUTE COUNT (BEAKER) (test 0.15 K/ L 0.04-0.54 tbmr=665) BASOPHILS ABSOLUTE COUNT (BEAKER) (test 0.09 K/ L 0.01-0.08 ochb=418) IMMATURE GRANULOCYTES-RELATIVE PERCENT (BEAKER) 1 % 0-1 (test alqq=3630) TSH/FREE T4 IF [id number] 03:38:00 Test Item Value Reference Range Comments THYROID STIMULATING HORMONE (BEAKER) (test 2.01 uIU/mL 0.35-4.94 eprs=677) VITAMIN B12 AND [id number] 03:38:00 Test Item Value Reference Range Comments VITAMIN B12 (BEAKER) (test cmxp=905) 1008 pg/mL 213-816 FOLATE (BEAKER) (test kifv=343) 8.4 ng/mL >=7.0 CREATINE KINASE (CK), TOTAL AND [id number] 01:03:00 Test Item Value Reference Range Comments CREATINE KINASE TOTAL (BEAKER) (test dxwc=016) 66 U/L 29-200 CREATINE KINASE-MB (BEAKER) (test hmbs=127) 1.4 ng/mL 0.0-6.6 CREATINE KINASE-MB INDEX (BEAKER) (test tudw=102) 2.1 % CK-MB Reference Range:<6.7 Normal6.7-10.0 Borderline>10.0 AbnormalTROPONIN [id number] 01:03:00 Test Item Value Reference Range Comments TROPONIN I (BEAKER) (test gapz=256) 0.02 ng/mL 0.00-0.03 Troponin I (TnI) levels [...] acute neurological disease, and persistent tachyarrhythmia.BASIC METABOLIC [id number] 00:56:00 Test Item Value Reference Range Comments SODIUM (BEAKER) (test 136 meq/L 136-145 zyye=218) POTASSIUM (BEAKER) (test 3.9 meq/L 3.5-5.1 fsyj=280) CHLORIDE (BEAKER) (test 104 meq/L 98-107 xhcc=888) CO2 (BEAKER) (test 24 meq/L 22-29 bxkn=467) BLOOD UREA NITROGEN 14 mg/dL 7-21 (BEAKER) (test kyog=055) CREATININE (BEAKER) (test 0.87 mg/dL 0.57-1.25 gery=188) GLUCOSE RANDOM (BEAKER) 104 mg/dL 70-105 (test rdmi=151) CALCIUM (BEAKER) (test 9.2 mg/dL 8.4-10.2 iueq=242) EGFR (BEAKER) (test 87 mL/min/1.73 sq m ESTIMATED GFR IS NOT aylc=3696) ACCURATE CREATININE CLEARANCE IN PREDICTING GLOMERULAR FILTRATION RATE. ESTIMATED GFR IS NOT APPLICABLE FOR DIALYSIS PATIENTS. PROTHROMBIN TIME/[id number] 00:27:00 Test Item Value Reference Range Comments PROTIME (BEAKER) (test kcnk=288) 17.2 seconds 11.7-14.7 INR (BEAKER) (test luju=814) 1.4 <=5.9 RECOMMENDED COUMADIN/WARFARIN INR THERAPY RANGESSTANDARD DOSE: 2.0 - 3.0 Includes: PROPHYLAXIS forvenous thrombosis, systemic embolization; TREATMENT for venous thrombosis and/or pulmonary embolus.HIGH RISK: Target INR is 2.5-3.5 for patients with mechanical heart valves.CBC W/PLT COUNT & AUTO [id number] 00:01:00 Test Item Value Reference Range Comments WHITE BLOOD CELL COUNT (BEAKER) (test xyyz=411) 8.2 K/ L 3.5-10.5 RED BLOOD CELL COUNT (BEAKER) (test ggze=279) 4.57 M/ L 4.63-6.08 HEMOGLOBIN (BEAKER) (test vogh=226) 13.2 GM/DL 13.7-17.5 HEMATOCRIT (BEAKER) (test vmnp=058) 40.5 % 40.1-51.0 MEAN CORPUSCULAR VOLUME (BEAKER) (test ljpc=778) 88.6 fL 79.0-92.2 MEAN CORPUSCULAR HEMOGLOBIN (BEAKER) (test 28.9 pg 25.7-32.2 mojb=518) MEAN CORPUSCULAR HEMOGLOBIN CONC (BEAKER) (test 32.6 GM/DL 32.3-36.5 ethn=977) RED CELL DISTRIBUTION WIDTH (BEAKER) (test 15.9 % 11.6-14.4 orbu=556) PLATELET COUNT (BEAKER) (test dcue=399) 198 K/CU MM 150-450 MEAN PLATELET VOLUME (BEAKER) (test dseq=181) 11.2 fL 9.4-12.4 NUCLEATED RED BLOOD CELLS (BEAKER) (test 0 /100 WBC 0-0 tnjr=373) NEUTROPHILS RELATIVE PERCENT (BEAKER) (test 57 % sqqm=394) LYMPHOCYTES RELATIVE PERCENT (BEAKER) (test 28 % elsq=987) MONOCYTES RELATIVE PERCENT (BEAKER) (test 10 % ujqp=807) EOSINOPHILS RELATIVE PERCENT (BEAKER) (test 3 % cdpq=977) BASOPHILS RELATIVE PERCENT (BEAKER) (test 1 % gkcm=761) NEUTROPHILS ABSOLUTE COUNT (BEAKER) (test 4.66 K/ L 1.78-5.38 gcdh=624) LYMPHOCYTES ABSOLUTE COUNT (BEAKER) (test 2.29 K/ L 1.32-3.57 vkvq=851) MONOCYTES ABSOLUTE COUNT (BEAKER) (test 0.81 K/ L 0.30-0.82 qozi=282) EOSINOPHILS ABSOLUTE COUNT (BEAKER) (test 0.25 K/ L 0.04-0.54 uijb=498) BASOPHILS ABSOLUTE COUNT (BEAKER) (test 0.10 K/ L 0.01-0.08 znnc=284) IMMATURE GRANULOCYTES-RELATIVE PERCENT (BEAKER) 1 % 0-1 (test cely=0162)
--- OUTSIDE RECORDS SUMMARY | 2018-03-20 08:57 | XMS REPORT | Continuity of Care Document ---
:1950 Author Organization Interface Problems Problem Status Onset Classification Date Comments Source Date Reported CHEST PAIN Active [address] CVA Active [address] PRABHA BILLING Active [address] HTN Active Finding 05/16/[address] [facility] [place] Bloody diarrhea Active Finding 05/16/[address] [facility] [place] Near syncope Active Finding 05/16/[address] [facility] [facility] [place] CAD Active Finding 05/16/[address] [facility] [facility] [place] Anemia Active Finding 05/16/[address] [facility] [facility] [place] Prostatic Active Finding 05/16/[address] hypertrophy, 016 [facility] benign, with [place] obstruction PVD Active Finding 05/16/[address] [facility] [facility] [place] COPD Active Finding 05/16/[address] [facility] [facility] [place] Abdominal pain Active Finding 05/16/[address] [facility] [facility] [place] Syncope Active Finding 05/16/[address] [facility] [facility] [place] Chest pain Active Finding 05/16/[address] [facility] [facility] [place] SOB Active Finding 05/16/[address] [facility] [facility] [place] Dyspnea Active Finding 05/16/[address] [facility] [facility] [place] Pulmonary fibrosis Active Finding 05/16/[address] [facility] [facility] [place] Chronic obstructive Inactive Finding 05/16/[address] [facility] lung disease COPD [facility] [place] Chest pain Inactive Finding 05/16/[address] [facility] [facility] [place] Hypertensive Inactive Finding 05/16/[address] [facility] [address] disorder, systemic [facility] arterial [place] Coronary Inactive Finding 05/16/[address] [facility] arteriosclerosis [facility] [place] Nicotine dependence Active Finding 05/16/[address] [facility] [facility] [place] GI Active Finding 05/16/[address] [facility] [facility] [place] AVM of stomach, Active Finding 05/16/[address] [facility] acquired [facility] [place] Unstable angina Active Finding 05/16/[address] [facility] [facility] [place] Weakness Active Finding 05/16/[address] [facility] [facility] [place] Severe peripheral Active Finding 05/16/[address] arterial disease [facility] [place] Tobacco abuse Active Finding 05/16/[address] [facility] [facility] [place] Acute exacerbation Active Finding 05/16/[address] [facility] of congestive heart [facility] failure [place] Vomiting Active Finding 05/16/[address] [facility] [facility] [place] CHEST PAIN, Active [facility] Medications Medication Details Route Status Patient Ordering Order Source Instructions Provider Date Atorvastatin AT BEDTIME Active [facility]cium [facility]17 [facility] [place] Clopidogrel DAILY Active [facility] Bisulfate [facility] [place] Tamsulosin TWICE DAILY [facility] [place] Aspirin DAILY Active Kyaw [facility] [place] Nitroglycerin Transfusion Active Kyaw [facility] VS PRN For 017 [facility] - Chest Pain [place] Codeine/Apap EVERY 6 HOURS Active Kyaw [facility] NEEDED PRN 017 [facility] - For Pain [place] Pantoprazole DAILY Active Ariel [facility] Sodium [facility]17 [facility] [place] Omeprazole DAILY Active [facility] [place] Tamsulosin DAILY Active Berry [facility] [place] Metoprolol TWICE DAILY Active [facility] Tartrate [facility]14 [facility] [place] Famotidine AT BEDTIME Active Berry [facility] [place] Pantoprazole TWICE DAILY Active Ariel [facility] [place] Metoprolol TWICE DAILY [facility] Tartrate [facility]14 [facility] [place] Omeprazole TWICE DAILY Active [facility] WITH MEALS 014 [facility] [place] Omeprazole DAILY Active [facility] Magnesium 013 [facility] [place] Omeprazole DAILY Active [facility] Magnesium 013 [facility] [place] Allergies, Adverse Reactions, Alerts Substance Category Reaction Severity Reaction Status Date Comments Source type Reported No Known Unknown Allergy to Active [facility] Drug Substance 6 [facility] Allergies [place] Immunizations Immunization Date Given Site Status Last Updated Comments Source Results Order Name Results Value Reference Date Interpretation Comments Source Range Abdomen/Pe Abdomen/Pelv EXAM: CT ABDOMEN AND PELVIS WITH CONTRAST 12/28 - [facility] lvis w IV is w - Medical contrast contrast CT This report was dictated by a Farm Crew Member /Fellow. I have personally reviewed the images as Center CT well as the Resident's interpretation and agree with the findings. DATE: 12/28/2017 2:24 PM CDT Read by: Venkatesh Alejandre (Fellow ) Resident: Venkatesh Alejandre (Fellow) Dictated Date/time: 12/28/17 16:40 Electronically Signed by: Alem Oro MD 12/28/17 17:19 FINAL REPORT INDICATION: - abd pain COMPARISON: None. TECHNIQUE: Volumetric CT of the abdomen and pelvis is acquired following the intravenous administration of contrast. Axial, coronal and sagittal images are provided. IV contrast: 100 mL of Visipaque 320 Enteric contrast: None. DLP: 4437 mGy-cm FINDINGS: Lines, tubes and hardware: Partial visualization of leads from cardiac device. Lower thorax: Small bilateral dependent atelectasis. Liver: Normal. Biliary tree: No intra- or extrahepatic biliary ductal dilation. Gallbladder: Surgically absent. Pancreas: Fatty atrophy. Otherwise normal. Spleen: Normal. Adrenals: Normal. Kidneys and ureters: Subcentimeter hypodensities in the kidneys are too small to further characterize. Contrast is present within the collecting systems. No hydronephrosis. Bladder: There is a small 1.1 cm right-sided bladder diverticulum (image 69 of series 7). Reproductive organs: Prostate calcification. Otherwise unremarkable. Gastrointestinal tract: Stomach: Small hiatal hernia. Small bowel: Normal. Colon: Normal. Appendix: Normal. Peritoneum, mesentery and retroperitoneum: No free air, ascites or loculated fluid. Lymph nodes: Normal. Vasculature: Aorta and branches: There is atherosclerotic calcification abdominal aorta and iliac vessels with complete occlusion of the left common iliac artery. There is a stent in the right external iliac artery. There is a patent femoral- femoral bypass graft. IVC and veins: Normal. Portal vasculature: Normal. Bones: No acute abnormality. Soft tissues: Normal. IMPRESSION: 1. No acute abdominopelvic abnormality. 2. 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 3. Small hiatal hernia. Brain/Neck Brain/Neck Exam: CTA HEAD AND NECK 12/28 [facility] Stroke Stroke /2018 - Medical perfusion perfusion Center CTA CTA DATE: 12/28/2017 1:10 PM CDT Read by: Amber Urias MD Dictated Date/time: 12/28/17 16:30 Electronically Signed by: Amber Urias MD 12/28/17 16:36 FINAL REPORT INDICATION: - cva COMPARISON: None TECHNIQUE: Rapid acquisition spiral CT images of the brain and neck were obtained between the skull base and the cranial vertex during intravenous infusion of iodinated contrast for the purposes of CT angiography. 3-D CT angiographic images are created using maximum intensity projection technique at the acquisition workstation. The source images are also presented for interpretation. IV contrast: 100 mL Visipaque 320 Total DLP: 2846 mGycm. DISCUSSION: Both common carotid arteries and vertebral arteries are patent from origin with usual course and caliber. Mixed plaque formation at the origin of both internal carotid arteries not resulting in significant stenosis by NASCET criteria. No discrete plaque ulceration. Both cervical internal carotid arteries ar e patent and symmetric in caliber. Intracranial internal carotid arteries are patent. Atheromatous calcification of the carotid siphons. Both posterior communicating arteries are patent. The anterior, middle and posterior cerebral arteries are patent with no proximal branch occlusion or flow-limiting stenosis. No AV malformation or aneurysms. Dural venous sinuses are patent. Atheromatous disease in the intradural segments of the vertebral arteries with no flow limitation. IMPRESSION: No intracranial proximal branch occlusion or flow-limiting stenosis. No significant stenosis by NASCET criteria. Chest Chest 1view EXAM: XR CHEST 1 VIEW 12/28 [facility] 1view DX DX /2017 - Medical This report was dictated by a Farm Crew Member/Fellow. I have personally reviewed the images as Center well as the Resident's interpretation and agree with the findings. DATE: 12/28/2017 1:09 PM CDT Read by: Lazaro Wright MD Resident: Lazaro Wright MD Dictated Date/time: 12/28/17 17:00 Electronically Signed by: Rufus Gamez MD 12/28/17 17:11 FINAL REPORT INDICATION: Cerebral vascular accident. COMPARISON: None. TECHNIQUE: AP chest. UT SECTION: ER FINDINGS: Lines, tubes and hardware: Dual-lead pacemaker is in place. Lungs and pleura: Lungs are hyperinflated. Small airspace opacity noted abutting the minor fissure. Biapical pleural thickening is present. No pleural effusions or pneumothorax. Heart and mediastinum: The heart size is normal for technique. Note made of aortic arch calcifications. Bones: No acute abnormality. Irregular radiopacity is noted along the left axillary soft tissues which could represent contrast extravasation. IMPRESSION: 1. Irregular radiopacity along the left axillary soft tissues likely represents contrast extravasation 2. Small airspace opacity abutting the minor fissure may represent fissural thickening/scarring/early consolidation. Brain Brain Stroke EXAM: CT BRAIN WITHOUT CONTRAST 12/28 - [facility] Stroke wo wo contrast /2017 - [facility] contrast CT Center CT DATE: 12/28/2017 Read by: Joshua Maxwell MD Dictated Date/time: 12/28/17 14:01 Electronically Signed by: Joshua Maxwell MD 12/28/17 14:04 FINAL REPORT INDICATION: Right-sided weakness, right facial droop COMPARISON: None TECHNIQUE: Routine axial images of the brain were obtained. IV contrast: None. DISCUSSION: There is no hemorrhage or recent ischemic change. No edema, mass lesion, or extra-axial collection is demonstrated. The ventricles and extra-axial spaces are normal. Calvarium and skull base are intact. There are atherosclerotic calcifications in the bilateral carotid siphons. The mastoid air cells, visible paranasal sinuses, and orbital globes are unremarkable. IMPRESSION: No hemorrhage or early ischemic change Laboratory Urine pH 6.5 05/[address] [facility] [address] Studies /2018 [facility] [place] Laboratory Urine 1.0 mg/dL 05/[address] Studies Urobilinogen /2018 [facility] [place] Laboratory Urine Total Urine 05/16 [facility] Studies Protein Total /2017 [facility] Protein [place] Laboratory Urine 1.015 05/16 [facility]. Studies Specific /2017 [facility] [place] Laboratory Urine Urine 05/16 [facility] Studies Nitrite Nitrite /2017 [facility] [place] Laboratory Urine Urine 05/16 [facility] Studies Leukocyte Leukocyte /2017 [facility] - Esterase Esterase [place] Laboratory Urine Urine 05/16 [facility]. Studies Ketones Ketones /2017 [facility] [place] Laboratory Urine Urine 05/16 [facility] Studies Glucose Glucose /2017 [facility] [place] Laboratory Urine Color Urine 05/16 [facility]. Studies Color /2017 [facility] [place] Laboratory Urine Blood Urine 05/16 [facility]. Studies Blood /2017 [facility] [place] Laboratory Urine Urine 05/16 [facility] Studies Bilirubin Bilirubin /2017 [facility] [place] Laboratory Urine Urine 05/16 [facility] Studies Appearance Appearance /2017 [facility] [place] Laboratory Creatine 1.1 ng/ml 0.3 - 4.0 05/16 [facility] Studies Kinase MB /2017 [facility] [place] Laboratory Creatine 61 IU/L 22 - 269 05/16 [facility] Studies Kinase /2017 [facility] [place] Laboratory Troponin I null 05/16 [facility] Studies /2017 [facility] [place] Laboratory Triglyceride 100 mg/dL 35 - 160 05/16 [facility] Studies s Level /2017 [facility] [place] Laboratory LDL 44 05/16 [facility] Studies Cholesterol, /2017 [facility] Calculated [place] Laboratory HDL 22 mg/dL 27 - 67 05/16 [facility] Studies Cholesterol /2018 [facility] [place] Laboratory Cholesterol/ 3.91 05/16 [facility] Studies HDL Ratio /2017 [facility] [place] Laboratory Cholesterol 86 mg/dL 05/16 [facility] Studies Level /2018 [facility] [place] Laboratory White Blood 6.5 K/uL 4.3 - 10.9 05/15 [facility] Studies Count /2017 [facility] [place] Laboratory Red Cell 17.3 % 12.1 - 05/15 [facility] Studies Distribution 15.2 /2017 [facility] Width [place] Laboratory Red Blood 4.44 M/uL 4.33 - 05/15 [facility] Studies Count 5.43 /2017 [facility] [place] Laboratory Platelet 161 K/uL 152 - 406 05/15 [facility] [address] Studies Count /2017 [facility] [place] Laboratory Neutrophils 58.0 % 41.7 - 05/15 [facility] St[facility] Studies % 73.7 /2017 [facility] [place] Laboratory Monocytes % 7.4 % 3.3 - 12.3 05/15 [facility] St. Studies /2017 [facility] [place] Laboratory Mean 9.4 fL 7.6 - 11.3 05/15 [facility] St[facility] Studies Platelet /2017 [facility] Volume [place] Laboratory Mean 88.3 fL 80 - 100 05/15 [facility] St[facility] Studies Corpuscular /2017 [facility] Volume [place] Laboratory Mean 32.6 g/dL 32.0 - 05/15 [facility] St. Studies Corpuscular 36.0 /2017 [facility] Hemoglobin [place] Concent Laboratory Mean 28.8 pg 27.0 - 05/15 [facility]. Studies Corpuscular 35.0 /2017 [facility] Hemoglobin [place] Laboratory Lymphocytes 31.4 % 15.3 - 05/15 [facility] St. Studies % 44.8 /2017 [facility] [place] Laboratory Hemoglobin 12.8 g/dL 13.6 - 05/15 [facility] St. Studies 17.9 /2017 [facility] [place] Laboratory Hematocrit 39.2 % 39.6 - 05/15 [facility] St. Studies 49.0 /2017 [facility] [place] Laboratory Eosinophils 1.8 % 0 - 4.4 05/15 [facility] St. Studies % /2017 [facility] [place] Laboratory Basophils % 1.4 % 0 - 1.3 05/15 [facility] St. Studies /2017 [facility] [place] Laboratory Absolute 3.8 K/uL 1.8 - 8.0 05/15 [facility] St. Studies Neutrophil /2017 [facility] [place] Laboratory Absolute 0.5 K/uL 0.1 - 1.3 05/15 [facility] St. Studies Monocytes /2017 [facility] - (CBC) [place] Laboratory Absolute 2.0 K/uL 0.7 - 4.9 05/15 [facility] St. Studies Lymphocytes /2017 [facility] - (CBC) [place] Laboratory Absolute 0.1 K/uL 0 - 0.5 05/15 [facility] St. Studies Eosinophils /2017 [facility] - (CBC) [place] Laboratory Absolute 0.1 K/uL 0 - 0.5 05/15 [facility] St. Studies Basophils /2017 [facility] - (CBC) [place] Laboratory Total 0.4 mg/dL 0.3 - 1.2 05/15 [facility] St. Studies Bilirubin /2017 [facility] - [place] Laboratory Glucose 135 mg/dL 65 - 120 05/15 [facility]. Studies Level /2017 [facility] [place] Laboratory Estimat null 90 05/15 [facility]. Studies Glomerular /2017 [facility] - Filtration [place] Rate Laboratory Creatinine 0.82 mg/dL 0.61 - 03 [facility] St. Studies 1.24 /2017 [facility] [place] Laboratory Calcium 8.9 mg/dL 8.5 - 10.5 05/15 [facility]. Studies Level /2017 [facility] - [place] Laboratory Blood Urea 12 mg/dL 6 - 20 05/15 [facility]. Studies Nitrogen /2017 [facility] - [place] Laboratory Alkaline 116 IU/L 42 - 121 05/15 [facility]. Studies Phosphatase /2017 [facility] - [place] Laboratory Sodium Level 134 mEq/L 135 - 145 05/15 [facility]. Studies /2017 [facility] - [place] Laboratory Serum Total 6.6 g/dL 6.0 - 8.3 05/15 [facility]. Studies Protein /2017 [facility] Laboratory Potassium 3.7 mEq/L 3.6 - 5.0 05/15 [facility]. Studies Level /2017 [facility] [place] Laboratory Globulin 3.0 g/dL 2.3 - 3.5 05/15 [facility]. Studies /2018 [facility] [place] Laboratory Chloride 101 mEq/L 101 - 111 05/15 [facility]. Studies Level /2017 [facility] - [place] Laboratory Carbon 27 mEq/L 21 - 31 05/15 [facility]. Studies Dioxide /2017 [facility] [place] Laboratory Aspartate 18 IU/L 10 - 42 05/15 [facility]. Studies Amino Transf /2017 [facility] - (AST/SGOT) [place] Laboratory Albumin/Glob 1.2 1.1 - 1.8 05/15 [facility]. Studies ulin Ratio /2017 [facility] [place] Laboratory Albumin 3.6 g/dL 3.2 - 5.5 05/15 [facility] St. Studies /2018 [facility] [place] Laboratory Alanine 13 IU/L 10 - 60 05/15 [facility]. Studies Aminotransfe /2017 [facility] rase [place] (ALT/SGPT) Laboratory B-Type 60 pg/ml 05/15 [facility] St. Studies Natriuretic [facility] Peptide [place] Laboratory Prothrombin 12.6 9.5 - 12.5 05/15 [facility] St. Studies Time SECONDS [facility] [place] Laboratory INR 1.07 05/15 [facility] St. Studies Internationa [facility] - l Normalized [place] Ratio Laboratory Activated 28.7 24.3 - 05/15 [facility] St. Studies Partial SECONDS 36.9 [facility] - Thromboplast [place] Time Laboratory Direct 0.1 mg/dL 0 - 0.2 05/15 [facility] St. Studies Bilirubin [facility] [place] Laboratory Magnesium 1.8 mg/dL 1.8 - 2.5 05/15 [facility] St. Studies Level [facility] [place] Laboratory Rapid null 05/15 [facility]. Studies Troponin I [facility] [place] Laboratory Lipase 33 U/L 22 - 51 05/15 [facility] St[address] Studies [facility] [place] Laboratory Urine WBC null 03/11 [facility] St. Studies [facility] [place] Laboratory Urine null 03/11 [facility] St. Studies Squamous [facility] Epithelial [place] Cells Laboratory Urine RBC Urine RBC 03/11 [facility] St[address] Studies [facility] [place] Laboratory Urine Urine 03/11 [facility] St. Studies Culture Culture [facility] - Reflexed Reflexed [place] Laboratory Urine null 03/11 [facility] St[facility] Studies Bacteria [facility] [place] Laboratory Bedside 97 mg/dl 65 - 120 03/11 [facility] St. Studies Glucose [facility] [place] Vital Signs Vital Sign Value Date Comments Source Heart Rate 61 05/16/2017 [facility]. [facility] [place] Systolic (mm Hg) 105 05/16/2017 [facility]. [facility] [place] Diastolic (mm Hg) 69 05/16/2017 [facility] [place] Temperature Oral (F) 97.8 F 05/16/2017 [facility] [place] Respitory Rate 18 05/16/2017 [facility] [place] Height 68 [facility] [place] [facility] 155 [facility] [place] Encounters Location Location Encounter Encounter Reason Attending ADM DC Status Source Details Type Number For Provider Date Date Visit [facility] St. Departed [id number] 03/11 03/11 [facility] [place] [facility] [id number] 05/15 05/16 [facility] [place] [place] Procedures Procedure Code Date Perfomer Comments Source Head Brain Wo [id number] [facility] Cont 8 - [place] Chest For Pe [id number] [facility] Angio 8 - [place] Chest Single View [id number] [facility] 8 - [place] Nazlini Count [facility] St[facility] kes 8 - [place] [facility] 8 - [place] Chest Single View [id number] [facility] 8 - [place] Ct Stroke Brain [id number] [facility] Wo Cont 8 - [place] INTRODUCE OTH [id number] [facility] THROMBOLYTIC IN 8 - [place] PERIPH VEIN, PERC THER/PROPH/DIAG [id number] [facility]. [facility] INJ IV PUSH 8 - [place]
--- NOTE | 2018-03-20 10:42 | RAD REPORT ---
EXAM DESCRIPTION: US - Extremity Venous Uni Ltd - 03/20/2018 10:24 am CLINICAL HISTORY: PAIN Leg swelling and edema. COMPARISON: EXT VENOUS UNI LTD dated 03/12/2009 FINDINGS: Right lower extremity venous system was interrogated with Doppler technique. Normal flow, compressibility and augmentation was noted. There is no DVT present. IMPRESSION: No evidence of right lower extremity deep venous thrombosis.
--- NOTE | 2018-03-20 10:43 | RAD REPORT ---
EXAM DESCRIPTION: RAD - Tib Fib Right - 03/20/2018 9:50 am CLINICAL HISTORY: PAIN COMPARISON: No comparisons FINDINGS: No bone or joint abnormality of the right leg is seen. IMPRESSION: Negative study.
--- NOTE | 2018-03-20 10:51 | RAD REPORT ---
EXAM DESCRIPTION: US - Lower Extremity Artery Uni Ltd - 03/20/2018 10:24 am CLINICAL HISTORY: PAIN Claudication right lower extremity COMPARISON: Lower Extremity Artery Uni Ltd dated 06/09/2017 FINDINGS: Grayscale, color, power and spectral Doppler the right lower extremity arterial system was performed. Triphasic waveform is seen involving the ANESTHESIOLOGY PHYSICIAN ASSISTANT with mild atherosclerotic plaquing seen. The SFA, poplit eal and posterior tibial arteries demonstrate biphasic waveforms. Dorsalis pedis artery demonstrates monophasic waveforms with diminished peak systolic velocity. No oc clusion is seen. IMPRESSION: Moderate distal (below the ankle) right lower extremity peripheral vascular disease is p resent greatest in the dorsalis pedis.
--- NOTE | 2018-03-20 11:29 | EDPHYS ---
Physician Documentation [facility] Name: Maurice Morfin Age: 68 yrs Sex: Male : 1950 Arrival Date: 03/20/2018 Time: 08:57 Bed 8 Private MD: Yung Thomas ED Physician Cameron Alonso HPI: 03/20 11:35 This 68 yrs old Male presents to ER via Ambulatory with complaints of Leg gs Pain. 11:35 The patient presents with pain. The complaints affect the lateral aspect of right calf. gs Onset: The symptoms/episode began/occurred 4 day(s) ago. Modifying factors: The symptoms are alleviated by nothing. the symptoms are aggravated by nothing. Associated signs and symptoms: Pertinent negatives numbness, tingling, warmth. Severity of symptoms: At their worst the symptoms were moderate, in the emergency department the symptoms are unchanged. The patient has experienced similar episodes in the past, a few times. Historical: - Allergies: 11:43 NKDA; gs - PMHx: 11:43 COPD; Hypertension; PVD; gs - Immunization history:: Adult Immunizations up to date. - Social history:: Smoking status: Patient uses tobacco products, smokes one-half pack cigarettes per day. - Ebola Screening: : Patient denies exposure to infectious person Patient denies travel to an Ebola-affected area in the 21 days before illness onset. ROS: 11:43 All other systems are negative. gs Exam: 11:43 Head/Face: Normocephalic, atraumatic. Eyes: Pupils equal round and reactive to light, gs extra-ocular motions intact. Lids and lashes normal. Conjunctiva and sclera are non-icteric and not injected. Cornea within normal limits. Periorbital areas with no swelling, redness, or edema. ENT: Nares patent. No nasal discharge, no septal abnormalities noted. Tympanic membranes are normal and external auditory canals are clear. Oropharynx with no redness, swelling, or masses, exudates, or evidence of obstruction, uvula midline. Mucous membranes moist. Neck: Trachea midline, no thyromegaly or masses palpated, and no cervical lymphadenopathy. Supple, full range of motion without nuchal rigidity, or vertebral point tenderness. No Meningismus. Chest/axilla: Normal chest wall appearance and motion. Nontender with no deformity. No lesions are appreciated. Respiratory: Lungs have equal breath sounds bilaterally, clear to auscultation and percussion. No rales, rhonchi or wheezes noted. No increased work of breathing, no retractions or nasal flaring. Abdomen/GI: Soft, non-tender, with normal bowel sounds. No distension or tympany. No guarding or rebound. No evidence of tenderness throughout. 11:43 Skin: Warm, dry with normal turgor. Normal color with no rashes, no lesions, and no evidence of cellulitis. Neuro: Awake and alert, GCS 15, oriented to person, place, time, and situation. Cranial nerves II-XII grossly intact. Motor strength 5/5 in all extremities. Sensory grossly intact. Cerebellar exam normal. Normal gait. 11:43 Constitutional: The patient appears alert, awake. 11:43 Cardiovascular: Rate: bradycardic, Pulses: pulse deficits are appreciated, right dorsalis pedis. 11:43 Cardiovascular: Pulses: Pulses are 2+ in right femoral artery, right popliteal artery, left femoral artery and left popliteal artery. 11:43 Musculoskeletal/extremity: Extremities: noted in the lateral aspect of right calf: tenderness, Sensation intact. Vital Signs: 09:06 BP 181 / 92; Pulse 75; Resp 17; Temp 98.2(O); Pulse Ox 100% on R/A; Weight 70.31 kg; ss Height 5 ft. 9 in. (175.26 cm); Pain 9/10; 10:48 BP 154 / 90; Pulse 60; Resp 18; Pulse Ox 99% on R/A; ph 09:06 Body Mass Index 22.89 (70.31 kg, 175.26 cm) MDM: 09:16 Patient medically screened. gs 11:43 Differential diagnosis: dvt,sprain,contusion, pvd claudication. Data reviewed: vital gs signs, nurses notes. Counseling: I had a detailed discussion with the patient and/or guardian regarding: the historical points, exam findings, and any diagnostic results supporting the discharge/admit diagnosis, radiology results, the need for outpatient follow up. 03/20 09:18 Order name: Tib Fib Right XRAY; Complete Time: 11:25 03/20 09:18 Order name: LE Artery Uni Ltd; Complete Time: :25 03/20 09:18 Order name: US Extremity Venous Unilateral Ltd; Complete Time: 11:25 Administered Medications: No medications were administered Disposition: 03/20/18 11:28 Discharged to Home. Impression: Atherosclerosis of [place] arteries of extremities with intermittent claudication, right leg. - Condition is Stable. - Discharge Instructions: Intermittent Claudication, Peripheral Vascular Disease. - Prescriptions for Tylenol- Codeine #3 300-30 mg Oral Tablet - take 1 tablet by ORAL route every 6 hours As needed; 10 tablet. - Medication Reconciliation Form, Thank You Letter, Antibiotic Education, Prescription Opioid Use form. - Follow up: Luis Carlos Quevedo MD; When: 1 - 2 days; Reason: Recheck today's complaints, Re-evaluation by your physician. Signatures: Dispatcher [employer] EDLupe Butler RN RN Courtney Henderson RN RN Alonso, MD MD kalin Barnes Corrections: (The following items were deleted from the chart) 11:36 11:28 03/20/2018 11:28 Discharged to Home. Impression: Atherosclerosis of [place] ph arteries of extremities with intermittent claudication, right leg. Condition is Stable. Forms are Medication Reconciliation Form, Thank You Letter, Antibiotic Education, Prescription Opioid Use. Follow up: Luis Carlos Quevedo; When: 1 - 2 days; Reason: Recheck today's complaints, Re-evaluation by your physician. gs
--- NOTE | 2018-03-20 11:29 | ER ---
Nurse's Notes [facility] Name: Maurice Morfin Age: 68 yrs Sex: Male : 1950 Arrival Date: 03/20/2018 Time: 08:57 Bed 8 Private MD: Yung Thomas Diagnosis: Atherosclerosis of [place] arteries of extremities with intermittent claudication, right leg Presentation: 03/20 09:06 Presenting complaint: Patient states: Pain to lateral aspect of R lower leg x 2 days. ss Denies injury, discoloration and/or swelling. Transition of care: patient was not received from another setting of care. Onset of symptoms was March 18, 2018. Risk Assessment: Do you want to hurt yourself or someone else? Patient reports no desire to harm self or others. Initial Sepsis Screen: Does the patient meet any 2 criteria? No. Patient's initial sepsis screen is negative. Does the patient have a suspected source of infection? No. Patient's initial sepsis screen is negative. Care prior to arrival: None. 09:06 Method Of Arrival: Ambulatory ss 09:06 Acuity: WAYLON 4 ss Historical: - Allergies: 11:43 NKDA; gs - PMHx: 11:43 COPD; Hypertension; PVD; gs - Immunization history:: Adult Immunizations up to date. - Social history:: Smoking status: Patient uses tobacco products, smokes one-half pack cigarettes per day. - Ebola Screening: : Patient denies exposure to infectious person Patient denies travel to an Ebola-affected area in the 21 days before illness onset. Screenin:48 Abuse screen: Denies threats or abuse. Denies injuries from another. Nutritional ph screening: No deficits noted. Tuberculosis screening: No symptoms or risk factors identified. Fall Risk None identified. Assessment: 09:30 General: Appears in no apparent distress. comfortable, Behavior is calm, cooperative, ph appropriate for age, Denies fever, feeling ill. Pain: Complains of pain in lateral aspect of right calf. Neuro: Level of Consciousness is awake, alert, obeys commands, Oriented to person, place, time, situation. Cardiovascular: Denies chest pain, shortness of breath, Capillary refill < 3 seconds in bilateral fingers Patient's skin is warm and dry. Respiratory: Airway is patent Respiratory effort is even, unlabored. Derm: Skin is intact, Skin is pink, warm \T\ dry. Musculoskeletal: Circulation, motion, and sensation intact. Range of motion: intact in all extremities, Swelling absent. 10:48 Reassessment: No changes from previously documented assessment. Patient and/or family ph updated on plan of care and expected duration. Pain level reassessed. Patient is alert, oriented x 3, equal unlabored respirations, skin warm/dry/pink. Pt resting quietly, awaiting US results, family at bedside, VSS. Vital Signs: 09:06 BP 181 / 92; Pulse 75; Resp 17; Temp 98.2(O); Pulse Ox 100% on R/A; Weight 70.31 kg; ss Height 5 ft. 9 in. (175.26 cm); Pain 9/10; 10:48 BP 154 / 90; Pulse 60; Resp 18; Pulse Ox 99% on R/A; ph 09:06 Body Mass Index 22.89 (70.31 kg, 175.26 cm) ED Course: 08:57 Patient arrived in ED. sb2 08:57 Yung Thomas MD is Private Physician. sb2 09:00 Cameron Alonso MD is Attending Physician. gs 09:06 Arm band placed on left wrist. ss 09:08 Triage completed. ss 09:09 Courtney Henderson, RN is Primary Nurse. ph 09:48 Patient has correct armband on for positive identification. Bed in low position. Call ph light in reach. Side rails up X 1. Pulse ox on. NIBP on. Warm blanket given. 09:50 Tib Fib Right XRAY In Process Unspecified. EDMS 10:20 Ultrasound completed. Patient tolerated well. sg3 10:24 US LE Artery Uni Ltd In Process Unspecified. EDMS 10:25 US Extremity Venous Unilateral Ltd In Process Unspecified. EDMS 11:28 Luis Carlos Quevedo MD is Referral Physician. gs 11:35 No provider procedures requiring assistance completed. Patient did not have IV access ph during this emergency room visit. Administered Medications: No medications were administered Outcome: 11:28 Discharge ordered by . gs 11:35 Discharged to home via wheelchair, with family. ph 11:35 Condition: good 11:35 Discharge instructions given to patient, Instructed on discharge instructions, follow up and referral plans. medication usage, Demonstrated understanding of instructions, follow-up care, medications, Prescriptions given X 1. 11:36 Patient left the ED. ph Signatures: Dispatcher [employer] EDLupe Butler RN RN Courtney Henderson RN RN Cameron Alonso MD MD Natalya Caldwell 3 Katalina Cuellar sb2
[2018-03-20 11:57] VITALS: TEMP 98.2
[2018-03-20 11:58] VITALS: BP 154/90; O2SAT 99
== END 2018-03-20 11:36 | disposition home or self-care (01) ==
LOC: ER 08:54
DX: I70.211 Atherosclerosis of native arteries of extremities with intermittent claudication, right leg (principal); I10 Essential (primary) hypertension; F17.210 Nicotine dependence, cigarettes, uncomplicated
CPT/HCPCS: 93926; 93971; 99283

== ENCOUNTER 2018-04-03 08:44 | Emergency (ER) | payer OTHER ==
--- OUTSIDE RECORDS SUMMARY | 2018-04-03 08:46 | XMS REPORT | Clinical Summary ---
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) after 04/02/2017 Social History Tobacco Use Types Packs/Day Years [...] INFLUENZA VACCINE 12/06/2017 Implants Implanted Type Area Cutter Grinder Operator Device Shelf Model / Identifier Expiration Serial / Date Lot Grft Eptfe-Heparin Rng [id number] - [id number] Graft/Pa N/A: [employer] & 09/01/2019 [id number] / Implanted: Qty: 1 on 01/13/2016 by Oniel Smith MD [facility] Arterial ASSC: MED PRDT [id number] / Procedures Procedure Name Priority Date/Time Associated Comments Diagnosis ARRYTHMIA IMPLANT 02/03/2018 2:53 REPORT - SCAN PM RETAIL ZONE SPECIALIST ARRYTHMIA IMPLANT 12/25/2017 8:00 REPORT - SCAN [...] procedure are in the results section. after 04/02/2017 Results ARRYTHMIA IMPLANT REPORT - SCAN (02/03/2018 2:53 PM RETAIL ZONE SPECIALIST)Only the most recent of3 resultswithin the time period is included. Narrative Performed At RHYTHM STRIP - SCAN (12/06/2017 2:00 PM CDT) Narrative Performed At TSH/Free T4 If Indicated (12/02/2017 3:11 AM CDT) TSH 3.16 0.35 - 4.94 uIU/mL [facility] Specimen Blood Performing Organization Address City/State/Zipcode Phone Number [place] [address] [place] [address] CENTER CBC with platelet count + automated diff (12/02/2017 3:11 AM CDT)Only the most recent of3 resultswithin the time period is included. WBC 5.2 3.5 - 10.5 K/L [facility] RBC 4.07 (L) 4.63 - 6.08 M/L [facility] Hemoglobin 11.2 (L) 13.7 - 17.5 GM/DL [facility] Hematocrit 35.9 (L) 40.1 - 51.0 % [facility] MCV 88.2 79.0 - 92.2 fL [facility] MCH 27.5 25.7 - 32.2 pg [facility] MCHC 31.2 (L) 32.3 - 36.5 GM/DL [facility] RDW 16.9 (H) 11.6 - 14.4 % [facility] Platelets 161 150 - 450 K/CU MM [facility] MPV 10.7 9.4 - 12.4 fL [facility] nRBC 0 0 - 0 /100 WBC [facility] % Neutros 51 % [facility] % Lymphs 32 % [facility] % Monos 11 % [facility] % Eos 3 % [facility] % Baso 2 % [facility] # Neutros 2.67 1.78 - 5.38 K/L [facility] # Lymphs 1.68 1.32 - 3.57 K/L [facility] # Monos 0.58 0.30 - 0.82 K/L [facility] # Eos 0.18 0.04 - 0.54 K/L [facility] # Baso 0.08 0.01 - 0.08 K/L [facility] Immature Granulocytes-Relative 1 0 - 1 % [facility] Specimen Blood Performing Organization Address City/State/Zipcode Phone Number [facility] [address] [place] [address] [phone] CENTER Basic Metabolic Panel (12/02/2017 3:11 AM CDT)Only the most recent of3 resultswithin the time period is included. Sodium 135 (L) 136 - 145 meq/L [facility] Potassium 3.9 3.5 - 5.1 meq/L [facility] Chloride 106 98 - 107 meq/L [facility] CO2 22 22 - 29 meq/L [facility] BUN 13 7 - 21 mg/dL [facility] Creatinine 0.81 0.57 - 1.25 mg/dL [facility] Glucose 91 70 - 105 mg/dL [facility] Calcium 8.5 8.4 - 10.2 mg/dL [facility] EGFR 95Comment: ESTIMATED GFR IS mL/min/1.73 sq m [facility] NOT ACCURATE CREATININE [facility]ENTER CLEARANCE IN PREDICTING GLOMERULAR FILTRATION RATE. ESTIMATED GFR IS NOT APPLICABLE FOR DIALYSIS PATIENTS. Specimen Blood Performing Organization Address City/State/Zipcode Phone Number [facility] [address] [place] [address] CENTER Carotid doppler bilateral (12/01/2017 10:12 PM CDT) Ejection Fraction [facility] Impressions Performed At Right Impression [facility] 1. There is [...] Carotid Duplex Study [facility] Demographics Patient Name JEAN,Date of Study 12/01/2017 MAMI [id number] Age 67 Visit Number [id number] GenderMale Accession Number [id number] Date of 1950 [facility] 7515 Hattie EverettJ. Jose Perez MD, Physician RPTUNG Procedure Type of Study: Cerebral: Carotid, CAROTID DOPPLER, BILATERAL. Indications for Study:Stroke. Patient Status:Routine. Study Location:Portable. Technical Quality:Adequate visualization. Risk Factors History of Disease + + + + !Diagnosis !Date!Comments ! + + + + !History/Risk!03/12/2017!Stroke, Current Smoker, PAD, HTN, HLD, CAD, ! 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 + + + + Procedure Note Interface, External Ris In - 12/02/2017 6:29 AM CDT [facility] - Carotid Duplex Study Demographics Patient Name JEAN, Date of Study 12/01/2017 MAMI FLANNERYN [id number] Age 67 Visit Number [id number] Gender Male Accession Number [id number] Date of 1950 Referring [facility] Room Number 7515 Physician Garcia Impregnator And Drier Helperaditi Hayes Interpreting Cristobal Perez MD, Physician KETTY Procedure Type of Study: Cerebral: Carotid, CAROTID DOPPLER, BILATERAL. Indications for Study:Stroke. Patient Status:Routine. Study Location:Portable. Technical Quality:Adequate visualization. Risk Factors History of Disease + + + + !Diagnosis !Date !Comments ! + + + + !History/Risk !03/12/2017!Stroke, Current Smoker, PAD, HTN, HLD, CAD, ! !Factors: ! !COPD, [place], Pacemaker, Fem-fem Bypass (2016) ! + + [...] Troponin I <0.01 0.00 - 0.03 ng/mL [facility] Specimen Blood Narrative Performed At [facility] Troponin I (TnI) levels must be interpreted [...] tachyarrhythmia. Performing Organization Address City/State/Zipcode Phone Number [facility] [address] [place] [address] CENTER ECHOCARDIOGRAM REPORT - SCAN (12/01/2017 6:50 PM CDT) Narrative Performed At CT brain without IV contrast portable (12/01/2017 6:30 PM CDT) Narrative Performed At FINAL REPORT [employer] CT head without contrast 12/01/2017 6:40 PM [...] MD Report Verified Date/Time:12/01/2017 18:41:06 Reading Location: [facility] Radiology Reading Room Procedure Note Interface, External [...] Report Verified Date/Time: 12/01/2017 18:41:06 Reading Location: [facility] Radiology Reading Room Performing Organization Address City/[facility]/Zipcode Phone Number [facility] REPORT - SCAN (12/01/2017 6:03 PM CDT) Narrative Performed At Potassium (12/01/2017 3:53 PM CDT) Potassium 3.7 3.5 - 5.1 meq/L [facility] Specimen Blood Narrative Performed At Check Serum Potassium level 2 hours after [facility] oral potassium replacement completed or 30 min after intravenous potassium replacement. Performing Organization Address City/State/Zipcode Phone Number [address] [address] [phone] CENTER ECG 12 lead (12/01/2017 11:15 AM CDT)Only the most recent of3 resultswithin the time period is included. Narrative Performed At Ventricular Rate 60 BPM GE MUSE Atrial Rate 60 BPM P-R Interval 150 ms QRS Duration 82 ms Q-T Interval 404 ms QTC Calculation(Bazett) 404 ms P [place] -12 degrees R [place] 17 degrees T [place] 69 degrees Electronic atrial pacemaker Nonspecific T [...] 404 ms QTC Calculation(Bazett) 404 ms P [place] -12 degrees R [place] 17 degrees T [place] 69 degrees Electronic atrial pacemaker Nonspecific T wave abnormality Abnormal ECG When compared with ECG of 01-DEC-2017 07:44, Nonspecific T wave abnormality has replaced inverted T waves in Lateral leads Confirmed by Tyler Hickman ([id number]) on 12/01/2017 11:03:52 PM Performing Organization Address City/State/[facility] Phone Number GE MUSE Pacemaker Check (12/01/2017 10:56 AM CDT) Narrative Performed At Sakshi Britt RN 12/01/2017 10:56 AM Performed pacemaker interrogation per order.Preliminary report placed under cardiac studies in chart. 1. Normal device function 2. No events SAKSHI BRITT RN 12/01/2017 10:56 AM [id number] Transthoracic 2D echo w/ doppler (cw/pw/color) (12/01/2017 9:37 AM CDT) Ejection Fraction [facility] Narrative Performed At Transthoracic Echocardiography Report (TTE) [facility]ESSON [facility] Demographics Patient Name JEAN, Date of Study 12/01/2017 MAMI [id number] GenderMale Visit Number [id number] Room Number [id number] Number Date of Birth1950Referring Physician Jostin Sevilla MD Age67 year(s)Impregnator And Drier Helper Roxane Ragsdale [facility] AnalystAlex Modesto InterpretingStpark Ritter Physician Procedure Type of Study TTE procedure:2DECHO W DOPPLER(CW/PW/COLOR) (Routine) Indications:Suspected cardiac source of emboli. Clinical History HGB 11.3 HCT 35.2 % DEFINITY 4ML ANGINA, COPD, CAD, CVA (03/2017), DEMENTIA, SHI, EMPHYSEMA, HTN, HLD, IN PPM (2008), SOB, SMOKER, TIA, PCI (01/20/2016), [...] Study 12/01/2017 MAMI Gender Male Visit Number [id number] Race Room Number 7515 Number Date of 1950 Referring Physician Jostin Sevilla MD Age 67 year(s) Impregnator And Drier Helper Roxane Jn [facility] Field Human Resources Manager Edward Salvador Interpreting Krista Ritter Physician Procedure Type of Study TTE procedure:2DECHO W DOPPLER(CW/PW/COLOR) (Routine) Indications:Suspected cardiac source of emboli. Clinical History HGB 11.3 HCT 35.2 % DEFINITY 4ML ANGINA, COPD, CAD, CVA (03/2017), DEMENTIA, SHI, EMPHYSEMA, HTN, HLD, IN PPM (2008), SOB, SMOKER, TIA, PCI (01/20/2016), [...] City/State/Zipcode Phone Number [facility] Phosphorus (12/01/2017 8:14 AM CDT) Phosphorus 2.6Comment: Specimen slightly 2.3 - 4.7 mg/dL [facility] Specimen Blood Performing Organization Address City/State/[facility] Centercode Phone Number [address] [address] [phone] CENTER Magnesium (12/01/2017 8:14 AM CDT) Magnesium 2.2Comment: Specimen slightly 1.6 - 2.6 mg/dL [facility] Specimen Blood Performing Organization Address [facility] Centercode Phone Number [address] [address] CENTER Hemoglobin A1c (12/01/2017 3:33 AM CDT)Only the most recent of2 resultswithin the time period is included. Hemoglobin A1C 6.0 4.3 - 6.1 % [facility] Specimen Blood Performing Organization Address [facility] Phone Number [address] [address] CENTER Fasting lipid panel (12/01/2017 3:33 AM CDT) Triglycerides 119 mg/dL [facility] Cholesterol 144 mg/dL [facility] HDL 26 mg/dL [facility] LDL Calculated 94 mg/dL [facility] Specimen Blood Narrative Performed At [facility] Triglyceride Reference Range: Low Risk <150 [id number] High Risk 200-499 Very High Risk>=500 Cholesterol Reference Range: Low Risk <200 [id number] High Risk>240 HDL Cholesterol Reference Range: Low Risk >=60 High Risk <40 LDL Cholesterol Reference Range: Optimal<100 Near [id number] [id number] [id number] Very High >=190 Fasting Performing Organization Address [facility] Phone Number [address] [address] CENTER Type and screen, automated (11/30/2017 5:41 PM CDT) ABO/RH AUTOMATED (BEAKER) O POSITIVE [facility] Ab Scrn NEGATIVE [facility] Specimen Blood Performing Organization Address City/[facility]/Zipcode Phone Number [facility] [address] [place], [place] [address] [phone] Vitamin B12 and Folate (11/30/2017 5:41 PM CDT) Vitamin B12 1,185 (H) 213 - 816 pg/mL [facility] Folate 2.3 (L) >=7.0 ng/mL [facility] Specimen Blood Performing Organization Address City/State/Zipcode Phone Number [facility] [address] [place], [place] [address] [phone] CENTER after 04/02/2017 Insurance Payer Benefit Plan / Group Subscriber ID Type Phone Address [employer] - UNITED [employer]ARE HMO xxxxxxxxxxx MEDICARE MGD CARE MEDICAID MEDICAID [facility] Medicaid Guarantor Name Account Type Relation to Date of Phone Billing Patient Address Mami Morfin Personal/Family Self 1950 [address] (Home) [place] [address] Mami Morfin Personal/Family Self 1950 [address] ([address]) [place] [address] Advance Directives For more information, please contact:[address] [phone] Code Status Date Activated Date Inactivated Comments Full Code 11/30/2017 4:52 PM 12/02/2017 4:13 PM This code status was determined by: Patient Full Code 01/13/2016 11:29 AM 01/14/2016 8:29 PM This code status was determined by: Patient
--- OUTSIDE RECORDS SUMMARY | 2018-04-03 08:47 | XMS REPORT | Continuity of Care Document ---
:1950 Author Organization Interface Problems Problem Status Onset Classification Date Comments Source Date Reported CHEST PAIN Active [address] PRABHA BILLING Active [address] CVA Active [address] HTN Active Finding 05/16/[address] [facility] [facility] CHEST PAIN, Active [facility] Medications Medication Details Route Status Patient [...] ABDOMEN AND PELVIS WITH CONTRAST 12/28 - [facility] lvis w IV is w - Medical contrast contrast CT This report was dictated by a Spaghetti Machine Operator /Fellow. I have personally reviewed the images [...] Brain/Neck Exam: CTA HEAD AND NECK 12/28 [facility] Stroke Stroke /2017 - Medical perfusion perfusion Center CTA CTA [...] stenosis. No significant stenosis by NASCET criteria. Brain Brain Stroke EXAM: CT BRAIN WITHOUT CONTRAST 12/28 [facility] Stroke wo wo contrast /2017 - Medical contrast CT Center CT DATE: 12/28/2017 Read [...] IMPRESSION: No hemorrhage or early ischemic change Chest Chest 1view EXAM: XR CHEST 1 VIEW 12/28 - [facility] 1view DX DX /2017 - [facility] This report was dictated by a Spaghetti Machine Operator/Fellow. I have personally reviewed the images as [...] minor fissure may represent fissural thickening/scarring/early consolidation. Laboratory Urine pH 6.5 05/[address] [facility] [facility] /2018 [facility] [place] [facility] Urine 1.0 mg/dL 05/[address] Studies Urobilinogen /2018 [facility] [place] [facility] Urine Total Urine 05/16 [facility] Studies Protein Total /2017 [facility] Protein [place] [facility] Urine 1.015 05/16 [facility]3]. Studies Specific /2017 [facility] [place] [facility] Urine Urine 05/16 [facility] Studies Nitrite Nitrite /2017 [facility] [place] [facility] Urine Urine 05/16 [facility] Studies Leukocyte Leukocyte /2017 [facility] Esterase Esterase [place] [facility] Urine Urine 05/16 [facility]3]. Studies Ketones Ketones /2017 [facility] [place] [facility] Urine Urine 05/16 [facility] Studies Glucose Glucose /2017 [facility] [place] [facility] Urine Color Urine 05/16 [facility]3]. Studies Color /2017 [facility] [place] [facility] Urine Blood Urine 05/16 [facility]3]. Studies Blood /2017 [facility] [place] [facility] Urine Urine 05/16 [facility] Studies Bilirubin Bilirubin /2017 [facility] [place] [facility] Urine Urine 05/16 [facility] Studies Appearance Appearance /2017 [facility] [place] [facility] Creatine 1.1 ng/ml 0.3 - 4.0 05/16 [facility] Studies Kinase MB /2017 [facility] [place] [facility] Creatine 61 IU/L 22 - 269 05/16 [facility] Studies Kinase /2017 [facility] [place] [facility] Troponin I null 05/16 [facility] Studies /2017 [facility] [place] [facility] Triglyceride 100 mg/dL 35 - 160 05/16 [facility] Studies s Level /2017 [facility] [place] [facility] LDL 44 05/16 [facility] Studies Cholesterol, /2017 [facility] Calculated [place] [facility] HDL 22 mg/dL 27 - 67 05/16 [facility] Studies Cholesterol /2018 [facility] [place] [facility] Cholesterol/ 3.91 05/16 [facility] Studies HDL Ratio /2017 [facility] [place] [facility] Cholesterol 86 mg/dL 05/16 [facility] Studies Level /2018 [facility] [place] [facility] White Blood 6.5 K/uL 4.3 - 10.9 05/15 [facility] Studies Count /2017 [facility] [place] [facility] Red Cell 17.3 % 12.1 - 05/15 [facility] Studies Distribution 15.2 /2017 [facility] Width [place] [facility] Red Blood 4.44 M/uL 4.33 - 05/15 [facility] Studies Count 5.43 /2017 [facility] [place] [facility] Platelet 161 K/uL 152 - 406 05/[address] [facility] [address] Studies Count /2017 [facility] [place] [facility] Neutrophils 58.0 % 41.7 - 05/[address] [facility] [address] Studies % 73.7 /2017 [facility] [place] [facility] Monocytes % 7.4 % 3.3 - 12.3 05/[address] [facility] [address] Studies /2017 [facility] [place] [facility] Mean 9.4 fL 7.6 - 11.3 05/[address] [facility] [address] Studies Platelet /2017 [facility] Volume [place] [facility] Mean 88.3 fL 80 - 100 05/[address] [facility] [address] Studies Corpuscular /2017 [facility] [place] [facility] Mean 32.6 g/dL 32.0 - 05/[address] [facility] [address] Studies Corpuscular 36.0 /2017 [facility] Hemoglobin [place] [facility] Mean 28.8 pg 27.0 - 05/15 [facility]3]. Studies Corpuscular 35.0 /2017 [facility] Hemoglobin [place] [facility] Lymphocytes 31.4 % 15.3 - 05/[address] [facility] [address] Studies % 44.8 /2017 [facility] [place] [facility] Hemoglobin 12.8 g/dL 13.6 - 05/[address] [facility] [address] Studies 17.9 /2017 [facility] [place] [facility] Hematocrit 39.2 % 39.6 - 05/[address] [facility] [address] Studies 49.0 /2017 [facility] [place] [facility] Eosinophils 1.8 % 0 - 4.4 05/[address] [facility] [address] Studies % /2017 [facility] [place] [facility] Basophils % 1.4 % 0 - 1.3 05/[address] [facility] [address] Studies /2017 [facility] [place] [facility] Absolute 3.8 K/uL 1.8 - 8.0 05/[address] [facility] [address] Studies Neutrophil /2017 [facility] [place] [facility] Absolute 0.5 K/uL 0.1 - 1.3 05/[address] [facility] [address] Studies Monocytes /2017 [facility] (CBC) [place] Laboratory Absolute 2.0 K/uL 0.7 - 4.9 05/[address] [facility] [address] Studies Lymphocytes /2017 [facility] (CBC) [place] [facility] Absolute 0.1 K/uL 0 - 0.5 05/[address] [facility] [address] Studies Eosinophils /2017 [facility] (CBC) [place] Laboratory Absolute 0.1 K/uL 0 - 0.5 05/[address] [facility] [address] Studies Basophils /2017 [facility] - (CBC) [place] Laboratory Total 0.4 mg/dL 0.3 - 1.2 05/[address] [facility] [address] Studies Bilirubin /2017 [facility] Glucose 135 mg/dL 65 - 120 05/15 [facility]3]. Studies Level /2017 [facility] [place] [facility] Estimat null 90 05/15 [facility]3]. Studies Glomerular /2017 [facility] - Filtration [place] Rate Laboratory Creatinine 0.82 mg/dL 0.61 - [address] [facility] [address] Studies 1.24 /2017 [facility] Calcium 8.9 mg/dL 8.5 - 10.5 05/15 [facility]3]. Studies Level /2017 [facility] [place] Laboratory Blood Urea 12 mg/dL 6 - 20 05/15 [facility]3]. Studies Nitrogen /2017 [facility] Alkaline 116 IU/L 42 - 121 05/15 [facility]3]. Studies Phosphatase /2017 [facility] Sodium Level 134 mEq/L 135 - 145 05/15 [facility]3]. Studies /2017 [facility] Serum Total 6.6 g/dL 6.0 - 8.3 05/15 [facility]3]. Studies Protein /2017 [facility] Laboratory Potassium 3.7 mEq/L 3.6 - 5.0 05/15 [facility]3]. Studies Level /2017 [facility] Globulin 3.0 g/dL 2.3 - 3.5 05/15 [facility]3]. Studies /2018 [facility] [place] [facility] Chloride 101 mEq/L 101 - 111 05/15 [facility]3]. Studies Level /2017 [facility] [place] Laboratory Carbon 27 mEq/L 21 - 31 05/15 [facility]3]. Studies Dioxide /2017 [facility] [place] Laboratory Aspartate 18 IU/L 10 - 42 05/15 [facility]3]. Studies Amino Transf /2017 [facility] - (AST/SGOT) [place] Laboratory Albumin/Glob 1.2 1.1 - 1.8 05/15 [facility]3]. Studies ulin Ratio /2017 [facility] [place] Laboratory Albumin 3.6 g/dL 3.2 - 5.5 05/[address] [facility] [address] Studies /2018 [facility] Alanine 13 IU/L 10 - 60 05/15 [facility]3]. Studies Aminotransfe /2017 [facility] rase [place] (ALT/SGPT) Laboratory B-Type 60 pg/ml 05/[address] [facility] [address] Studies Natriuretic [facility] Peptide [place] Laboratory Prothrombin 12.6 9.5 - 12.5 05/[address] [facility] [address] Studies Time SECONDS [facility] [place] [facility] INR 1.07 05/[address] [facility] [address] Studies Internationa [facility] l Normalized [place] Ratio Laboratory Activated 28.7 24.3 - 05/[address] [facility] [address] Studies Partial SECONDS 36.9 [facility] Thromboplast [place] Time Laboratory Direct 0.1 mg/dL 0 - 0.2 05/[address] [facility] [address] Studies Bilirubin [facility] [place] [facility] Magnesium 1.8 mg/dL 1.8 - 2.5 05/[address] [facility] [address] Studies Level [facility] [place] [facility] Rapid null 05/15 [facility]3]. Studies Troponin I [facility] [place] [facility] Lipase 33 U/L 22 - 51 05/[address] [facility] [address] Studies [facility] [place] [facility] Urine WBC null 03/[address] [facility] [address] Studies [facility] [place] [facility] Urine null 03/[address] [facility] [address] Studies Squamous [facility] Epithelial [place] Cells Laboratory Urine RBC Urine RBC 03/[address] [facility] [address] Studies [facility] [place] [facility] Urine Urine 03/[address] [facility] [address] Studies Culture Culture [facility] Reflexed Reflexed [place] Laboratory Urine null 03/[address] [facility] [address] Studies Bacteria [facility] [place] [facility] Bedside 97 mg/dl 65 - 120 03/[address] [facility] [address] Studies Glucose [facility] [place] Vital Signs Vital Sign Value Date Comments Source Heart Rate 61 05/16/2017 [facility]3]. [facility] [place] Systolic (mm Hg) 105 05/16/2017 [facility]3]. [facility] [place] Diastolic (mm Hg) 69 05/16/2017 [facility] [place] Temperature Oral (F) 97.8 F 05/16/2017 [facility] [place] Respitory Rate 18 05/16/2017 [facility] [place] Height 68 05/15/[address] [facility] [facility] [place] Weight 155 05/15/[address] [facility] [place] Encounters Location Location Encounter Encounter Reason Attending ADM DC Status Source Details Type Number For Provider Date Date Visit [facility] Departed [id number] 03/11 03/[address] [facility] [place] [facility] [id number] 05/15 05/[address] [facility] [facility] [place] Procedures Procedure Code Date Perfomer Comments Source Head Brain Wo [id number] [facility] Cont 8 - [place] Chest For Pe [id number] [facility] Angio 8 - [place] Chest Single View [id number] [facility] 8 - [place] Count [facility] kes 8 - [place] [facility] 8 - [place] Chest Single View [id number] [facility] 8 - [place] [facility] Stroke Brain [id number] [facility] Wo Cont 8 - [place] INTRODUCE OTH [id number] [facility] THROMBOLYTIC IN 8 - [place] PERIPH VEIN, PERC THER/PROPH/DIAG [id number] [facility]3]. [facility] INJ IV PUSH 8 - [place]
--- OUTSIDE RECORDS SUMMARY | 2018-04-03 08:47 | XMS REPORT ---
:1950 [facility] Address [address] [place] [address] Care Team Providers Name Role Phone LOU AVERY Unavailable Unavailable MCECA STERLING Unavailable Unavailable Problems This patient has no known problems. Allergies, Adverse Reactions, Alerts This patient has no known allergies or adverse reactions. Medications This patient has no known medications. Results Test Description Test Time Test Comments Text Results Atomic Results Result Comments TSH/FREE T4 IF INDICATED 2017-12-02 04:03:00 Test Item Value Reference Range Comments THYROID STIMULATING HORMONE (BEAKER) (test nmex=764) 3.16 uIU/mL 0.35-4.94 BASIC METABOLIC [id number] 03:35:00 Test Item Value Reference Range Comments SODIUM (BEAKER) (test 135 meq/L 136-145 anin=240) POTASSIUM (BEAKER) (test 3.9 meq/L 3.5-5.1 xfiz=878) CHLORIDE (BEAKER) (test 106 meq/L 98-107 qnck=695) CO2 (BEAKER) (test 22 meq/L 22-29 xgah=049) BLOOD UREA NITROGEN 13 mg/dL 7-21 (BEAKER) (test mzvg=916) CREATININE (BEAKER) (test 0.81 mg/dL 0.57-1.25 nrjk=823) GLUCOSE RANDOM (BEAKER) 91 mg/dL 70-105 (test qawr=901) CALCIUM (BEAKER) (test 8.5 mg/dL 8.4-10.2 coup=781) EGFR (BEAKER) (test 95 mL/min/1.73 sq m ESTIMATED GFR IS NOT uftg=3972) ACCURATE CREATININE CLEARANCE IN PREDICTING GLOMERULAR FILTRATION RATE. ESTIMATED GFR IS NOT APPLICABLE FOR DIALYSIS PATIENTS. CBC W/PLT COUNT & AUTO [id number] 03:24:00 Test Item Value Reference Range Comments WHITE BLOOD CELL COUNT (BEAKER) (test xjny=716) 5.2 K/ L 3.5-10.5 RED BLOOD CELL COUNT (BEAKER) (test auqw=491) 4.07 M/ L 4.63-6.08 HEMOGLOBIN (BEAKER) (test ubqp=958) 11.2 GM/DL 13.7-17.5 HEMATOCRIT (BEAKER) (test mdan=414) 35.9 % 40.1-51.0 MEAN CORPUSCULAR VOLUME (BEAKER) (test mjcn=831) 88.2 fL 79.0-92.2 MEAN CORPUSCULAR HEMOGLOBIN (BEAKER) (test 27.5 pg 25.7-32.2 hikm=869) MEAN CORPUSCULAR HEMOGLOBIN CONC (BEAKER) (test 31.2 GM/DL 32.3-36.5 kcat=915) RED CELL DISTRIBUTION WIDTH (BEAKER) (test 16.9 % 11.6-14.4 jobn=171) PLATELET COUNT (BEAKER) (test fonv=856) 161 K/CU MM 150-450 MEAN PLATELET VOLUME (BEAKER) (test hrpw=613) 10.7 fL 9.4-12.4 NUCLEATED RED BLOOD CELLS (BEAKER) (test 0 /100 WBC 0-0 cwrx=006) NEUTROPHILS RELATIVE PERCENT (BEAKER) (test 51 % lgnb=843) LYMPHOCYTES RELATIVE PERCENT (BEAKER) (test 32 % flpd=197) MONOCYTES RELATIVE PERCENT (BEAKER) (test 11 % mkfx=601) EOSINOPHILS RELATIVE PERCENT (BEAKER) (test 3 % xeob=702) BASOPHILS RELATIVE PERCENT (BEAKER) (test 2 % ntxv=937) NEUTROPHILS ABSOLUTE COUNT (BEAKER) (test 2.67 K/ L 1.78-5.38 poyd=804) LYMPHOCYTES ABSOLUTE COUNT (BEAKER) (test 1.68 K/ L 1.32-3.57 duzq=118) MONOCYTES ABSOLUTE COUNT (BEAKER) (test 0.58 K/ L 0.30-0.82 qdmo=307) EOSINOPHILS ABSOLUTE COUNT (BEAKER) (test 0.18 K/ L 0.04-0.54 yvqb=838) BASOPHILS ABSOLUTE COUNT (BEAKER) (test 0.08 K/ L 0.01-0.08 ibhi=030) IMMATURE GRANULOCYTES-RELATIVE PERCENT (BEAKER) 1 % 0-1 (test gmsy=4530) TROPONIN [id number] 20:57:00 Test Item Value Reference Range Comments TROPONIN I (KYARA) (test umno=684) < ng/mL 0.00-0.03 Troponin I (TnI) levels [...] persistent tachyarrhythmia.CT BRAIN WITHOUT IV CONTRAST - [id number] 18:41:00Reason for exam:->Post tPAFINAL REPORT CT head [...] Paez Verified Date/Time: 12/01/2017 18:41:06 Reading Location: [facility] Radiology Reading Room TROPONIN [id number] 17:00:00 Test Item Value Reference Range Comments TROPONIN I (KYARA) (test vgjb=703) < ng/mL 0.00-0.03 Troponin I (TnI) levels [...] failure, acidosis, acute neurological disease, and persistent tachyarrhythmia.[id number] 16:23:00 Test Item Value Reference Range Comments POTASSIUM (BEAKER) (test iavr=954) 3.7 meq/L 3.5-5.1 Check Serum Potassium level 2 hours after oral potassium replacement completed or 30 min after intravenous potassium replacement.[id number] 11:59:00 Test Item Value Reference Range Comments MAGNESIUM (BEAKER) (test 2.2 mg/dL 1.6-2.6 Specimen slightly hemolyzed ippk=100) [id number] 11:59:00 Test Item Value Reference Range Comments PHOSPHORUS (BEAKER) (test 2.6 mg/dL 2.3-4.7 Specimen slightly hemolyzed qfca=879) HEMOGLOBIN [id number] 11:49:00 Test Item Value Reference Range Comments HEMOGLOBIN A1C (BEAKER) (test vmqh=944) 6.0 % 4.3-6.1 TROPONIN [id number] 08:40:00 Test Item Value Reference Range Comments TROPONIN I (BEAKER) (test gmka=371) < ng/mL 0.00-0.03 Troponin I (TnI) levels [...] acidosis, acute neurological disease, and persistent tachyarrhythmia.LIPID [id number] 04:39:00 Test Item Value Reference Range Comments TRIGLYCERIDES (BEAKER) (test ouul=054) 119 mg/dL CHOLESTEROL (BEAKER) (test jlbv=601) 144 mg/dL HDL CHOLESTEROL (BEAKER) (test drpe=333) 26 mg/dL LDL CHOLESTEROL CALCULATED (BEAKER) (test 94 mg/dL kphg=950) Triglyceride Reference Range: Low Risk <150 Borderline 150- 199 High Risk 200-499 Very High Risk >=500Cholesterol Reference Range: Low Risk <200 Borderline 200-239 High Risk > 240HDL Cholesterol Reference Range: Low Risk >=60 High Risk <40LDL Cholesterol Reference Range: Optimal <100 Near Optimal 100-129 Borderline 130-159 High 160-189 Very High >=190 FastingBASIC METABOLIC [id number] 04:39:00 Test Item Value Reference Range Comments SODIUM (BEAKER) (test 136 meq/L 136-145 vcco=113) POTASSIUM (BEAKER) (test 3.7 meq/L 3.5-5.1 wavh=192) CHLORIDE (BEAKER) (test 105 meq/L 98-107 ghti=052) CO2 (BEAKER) (test 23 meq/L 22-29 tapi=769) BLOOD UREA NITROGEN 14 mg/dL 7-21 (BEAKER) (test cmmz=155) CREATININE (BEAKER) (test 0.86 mg/dL 0.57-1.25 qsow=359) GLUCOSE RANDOM (BEAKER) 94 mg/dL 70-105 (test gjpr=384) CALCIUM (BEAKER) (test 8.8 mg/dL 8.4-10.2 kmop=304) EGFR (BEAKER) (test 88 mL/min/1.73 sq m ESTIMATED GFR IS NOT ovmw=5364) ACCURATE CREATININE CLEARANCE IN PREDICTING GLOMERULAR FILTRATION RATE. ESTIMATED GFR IS NOT APPLICABLE FOR DIALYSIS PATIENTS. FastingCBC W/PLT COUNT & AUTO [id number] 04:25:00 Test Item Value Reference Range Comments WHITE BLOOD CELL COUNT (BEAKER) (test vdah=543) 5.0 K/ L 3.5-10.5 RED BLOOD CELL COUNT (BEAKER) (test xbtq=711) 4.03 M/ L 4.63-6.08 HEMOGLOBIN (BEAKER) (test uhiy=142) 11.3 GM/DL 13.7-17.5 HEMATOCRIT (BEAKER) (test zwgr=238) 35.2 % 40.1-51.0 MEAN CORPUSCULAR VOLUME (BEAKER) (test djvo=685) 87.3 fL 79.0-92.2 MEAN CORPUSCULAR HEMOGLOBIN (BEAKER) (test 28.0 pg 25.7-32.2 rqqp=458) MEAN CORPUSCULAR HEMOGLOBIN CONC (BEAKER) (test 32.1 GM/DL 32.3-36.5 eaya=885) RED CELL DISTRIBUTION WIDTH (BEAKER) (test 16.9 % 11.6-14.4 kued=568) PLATELET COUNT (BEAKER) (test bdcx=069) 179 K/CU MM 150-450 MEAN PLATELET VOLUME (BEAKER) (test cgyb=659) 11.6 fL 9.4-12.4 NUCLEATED RED BLOOD CELLS (BEAKER) (test 0 /100 WBC 0-0 sxkd=294) NEUTROPHILS RELATIVE PERCENT (BEAKER) (test 48 % jusy=579) LYMPHOCYTES RELATIVE PERCENT (BEAKER) (test 36 % dhsb=003) MONOCYTES RELATIVE PERCENT (BEAKER) (test 10 % dvnq=528) EOSINOPHILS RELATIVE PERCENT (BEAKER) (test 3 % iyhl=422) BASOPHILS RELATIVE PERCENT (BEAKER) (test 2 % xhcq=424) NEUTROPHILS ABSOLUTE COUNT (BEAKER) (test 2.41 K/ L 1.78-5.38 myti=372) LYMPHOCYTES ABSOLUTE COUNT (BEAKER) (test 1.80 K/ L 1.32-3.57 ajgp=290) MONOCYTES ABSOLUTE COUNT (BEAKER) (test 0.52 K/ L 0.30-0.82 rqkv=751) EOSINOPHILS ABSOLUTE COUNT (BEAKER) (test 0.17 K/ L 0.04-0.54 xzcn=791) BASOPHILS ABSOLUTE COUNT (BEAKER) (test 0.08 K/ L 0.01-0.08 uecg=400) IMMATURE GRANULOCYTES-RELATIVE PERCENT (BEAKER) 1 % 0-1 (test rnix=8569) HEMOGLOBIN [id number] 22:29:00 Test Item Value Reference Range Comments HEMOGLOBIN A1C (BEAKER) (test yjqb=987) 5.9 % 4.3-6.1 VITAMIN B12 AND [id number] 18:47:00 Test Item Value Reference Range Comments VITAMIN B12 (BEAKER) (test hvfp=345) 1185 pg/mL 213-816 FOLATE (BEAKER) (test ebpq=592) 2.3 ng/mL >=7.0 TROPONIN [id number] 18:18:00 Test Item Value Reference Range Comments TROPONIN I (BEAKER) (test ymwt=362) < ng/mL 0.00-0.03 Troponin I (TnI) levels [...] acute neurological disease, and persistent tachyarrhythmia.BASIC METABOLIC [id number] 18:10:00 Test Item Value Reference Range Comments SODIUM (BEAKER) (test 136 meq/L 136-145 gbts=805) POTASSIUM (BEAKER) (test 3.8 meq/L 3.5-5.1 hsen=992) CHLORIDE (BEAKER) (test 102 meq/L 98-107 wynt=606) CO2 (BEAKER) (test 23 meq/L 22-29 relo=683) BLOOD UREA NITROGEN 10 mg/dL 7-21 (BEAKER) (test qjto=788) CREATININE (BEAKER) (test 0.88 mg/dL 0.57-1.25 nfva=037) GLUCOSE RANDOM (BEAKER) 102 mg/dL 70-105 (test lgnz=995) CALCIUM (BEAKER) (test 9.3 mg/dL 8.4-10.2 cszb=762) EGFR (BEAKER) (test 86 mL/min/1.73 sq m ESTIMATED GFR IS NOT dxhn=3347) ACCURATE CREATININE CLEARANCE IN PREDICTING GLOMERULAR FILTRATION RATE. ESTIMATED GFR IS NOT APPLICABLE FOR DIALYSIS PATIENTS. CBC W/PLT COUNT & AUTO [id number] 17:52:00 Test Item Value Reference Range Comments WHITE BLOOD CELL COUNT (BEAKER) (test ytnl=796) 8.8 K/ L 3.5-10.5 RED BLOOD CELL COUNT (BEAKER) (test vqob=430) 4.53 M/ L 4.63-6.08 HEMOGLOBIN (BEAKER) (test cmbz=947) 12.6 GM/DL 13.7-17.5 HEMATOCRIT (BEAKER) (test oybl=509) 39.4 % 40.1-51.0 MEAN CORPUSCULAR VOLUME (BEAKER) (test oxsx=756) 87.0 fL 79.0-92.2 MEAN CORPUSCULAR HEMOGLOBIN (BEAKER) (test 27.8 pg 25.7-32.2 ihnh=688) MEAN CORPUSCULAR HEMOGLOBIN CONC (BEAKER) (test 32.0 GM/DL 32.3-36.5 hrfp=194) RED CELL DISTRIBUTION WIDTH (BEAKER) (test 17.0 % 11.6-14.4 zzyb=507) PLATELET COUNT (BEAKER) (test szhi=912) 186 K/CU MM 150-450 MEAN PLATELET VOLUME (BEAKER) (test kegn=929) 10.5 fL 9.4-12.4 NUCLEATED RED BLOOD CELLS (BEAKER) (test 0 /100 WBC 0-0 cprm=177) NEUTROPHILS RELATIVE PERCENT (BEAKER) (test 69 % mnzw=245) LYMPHOCYTES RELATIVE PERCENT (BEAKER) (test 20 % znes=274) MONOCYTES RELATIVE PERCENT (BEAKER) (test 9 % uvql=400) EOSINOPHILS RELATIVE PERCENT (BEAKER) (test 1 % jajy=211) BASOPHILS RELATIVE PERCENT (BEAKER) (test 1 % ldfi=232) NEUTROPHILS ABSOLUTE COUNT (BEAKER) (test 6.12 K/ L 1.78-5.38 qhjz=610) LYMPHOCYTES ABSOLUTE COUNT (BEAKER) (test 1.72 K/ L 1.32-3.57 hxvg=437) MONOCYTES ABSOLUTE COUNT (BEAKER) (test 0.75 K/ L 0.30-0.82 oyps=993) EOSINOPHILS ABSOLUTE COUNT (BEAKER) (test 0.08 K/ L 0.04-0.54 bgfb=724) BASOPHILS ABSOLUTE COUNT (BEAKER) (test 0.09 K/ L 0.01-0.08 ezan=406) IMMATURE GRANULOCYTES-RELATIVE PERCENT (BEAKER) 1 % 0-1 (test kqqc=8185) BASIC METABOLIC [id number] 07:51:00 Test Item Value Reference Range Comments SODIUM (BEAKER) (test 136 meq/L 136-145 igzh=984) POTASSIUM (BEAKER) (test 4.0 meq/L 3.5-5.1 pjkp=347) CHLORIDE (BEAKER) (test 106 meq/L 98-107 nmzj=002) CO2 (BEAKER) (test 23 meq/L 22-29 hbkn=689) BLOOD UREA NITROGEN 15 mg/dL 7-21 (BEAKER) (test awnj=259) CREATININE (BEAKER) (test 0.92 mg/dL 0.57-1.25 gxaw=508) GLUCOSE RANDOM (BEAKER) 92 mg/dL 70-105 (test jnvh=340) CALCIUM (BEAKER) (test 8.7 mg/dL 8.4-10.2 rblx=155) EGFR (BEAKER) (test 82 mL/min/1.73 sq m ESTIMATED GFR IS NOT xwqr=1441) ACCURATE CREATININE CLEARANCE IN PREDICTING GLOMERULAR FILTRATION RATE. ESTIMATED GFR IS NOT APPLICABLE FOR DIALYSIS PATIENTS. CBC W/PLT COUNT & AUTO [id number] 05:55:00 Test Item Value Reference Range Comments WHITE BLOOD CELL COUNT (BEAKER) (test wqqb=756) 5.9 K/ L 3.5-10.5 RED BLOOD CELL COUNT (BEAKER) (test onbm=463) 4.25 M/ L 4.63-6.08 HEMOGLOBIN (BEAKER) (test fqei=119) 12.3 GM/DL 13.7-17.5 HEMATOCRIT (BEAKER) (test hcdq=205) 37.8 % 40.1-51.0 MEAN CORPUSCULAR VOLUME (BEAKER) (test lvxi=559) 88.9 fL 79.0-92.2 MEAN CORPUSCULAR HEMOGLOBIN (BEAKER) (test 28.9 pg 25.7-32.2 wdcd=827) MEAN CORPUSCULAR HEMOGLOBIN CONC (BEAKER) (test 32.5 GM/DL 32.3-36.5 mcsw=188) RED CELL DISTRIBUTION WIDTH (BEAKER) (test 15.9 % 11.6-14.4 urnq=213) PLATELET COUNT (BEAKER) (test eqif=771) 173 K/CU MM 150-450 MEAN PLATELET VOLUME (BEAKER) (test outs=097) 11.5 fL 9.4-12.4 NUCLEATED RED BLOOD CELLS (BEAKER) (test 0 /100 WBC 0-0 gzqe=565) NEUTROPHILS RELATIVE PERCENT (BEAKER) (test 48 % ehnk=786) LYMPHOCYTES RELATIVE PERCENT (BEAKER) (test 34 % mcjl=416) MONOCYTES RELATIVE PERCENT (BEAKER) (test 12 % bbqr=387) EOSINOPHILS RELATIVE PERCENT (BEAKER) (test 4 % tbny=405) BASOPHILS RELATIVE PERCENT (BEAKER) (test 2 % dowq=710) NEUTROPHILS ABSOLUTE COUNT (BEAKER) (test 2.85 K/ L 1.78-5.38 kgby=157) LYMPHOCYTES ABSOLUTE COUNT (BEAKER) (test 2.02 K/ L 1.32-3.57 thlw=397) MONOCYTES ABSOLUTE COUNT (BEAKER) (test 0.68 K/ L 0.30-0.82 mwag=078) EOSINOPHILS ABSOLUTE COUNT (BEAKER) (test 0.25 K/ L 0.04-0.54 xnsx=691) BASOPHILS ABSOLUTE COUNT (BEAKER) (test 0.09 K/ L 0.01-0.08 ucad=837) IMMATURE GRANULOCYTES-RELATIVE PERCENT (BEAKER) 1 % 0-1 (test uzbr=2435) CBC W/PLT COUNT & AUTO [id number] 05:15:00 Test Item Value Reference Range Comments WHITE BLOOD CELL COUNT (BEAKER) (test kcmq=056) 5.4 K/ L 3.5-10.5 RED BLOOD CELL COUNT (BEAKER) (test tifj=902) 4.34 M/ L 4.63-6.08 HEMOGLOBIN (BEAKER) (test vffd=676) 12.5 GM/DL 13.7-17.5 HEMATOCRIT (BEAKER) (test vhrc=311) 39.0 % 40.1-51.0 MEAN CORPUSCULAR VOLUME (BEAKER) (test mcsx=703) 89.9 fL 79.0-92.2 MEAN CORPUSCULAR HEMOGLOBIN (BEAKER) (test 28.8 pg 25.7-32.2 vgfq=674) MEAN CORPUSCULAR HEMOGLOBIN CONC (BEAKER) (test 32.1 GM/DL 32.3-36.5 zxze=807) RED CELL DISTRIBUTION WIDTH (BEAKER) (test 15.9 % 11.6-14.4 skqi=026) PLATELET COUNT (BEAKER) (test mugg=888) 162 K/CU MM 150-450 MEAN PLATELET VOLUME (BEAKER) (test bxpm=190) 10.6 fL 9.4-12.4 NUCLEATED RED BLOOD CELLS (BEAKER) (test 0 /100 WBC 0-0 uecu=921) NEUTROPHILS RELATIVE PERCENT (BEAKER) (test 52 % qgyb=695) LYMPHOCYTES RELATIVE PERCENT (BEAKER) (test 31 % ecve=907) MONOCYTES RELATIVE PERCENT (BEAKER) (test 11 % zzub=710) EOSINOPHILS RELATIVE PERCENT (BEAKER) (test 4 % hzdn=660) BASOPHILS RELATIVE PERCENT (BEAKER) (test 2 % mpja=914) NEUTROPHILS ABSOLUTE COUNT (BEAKER) (test 2.78 K/ L 1.78-5.38 ikse=762) LYMPHOCYTES ABSOLUTE COUNT (BEAKER) (test 1.69 K/ L 1.32-3.57 ijgn=722) MONOCYTES ABSOLUTE COUNT (BEAKER) (test 0.59 K/ L 0.30-0.82 cyln=858) EOSINOPHILS ABSOLUTE COUNT (BEAKER) (test 0.21 K/ L 0.04-0.54 vbii=028) BASOPHILS ABSOLUTE COUNT (BEAKER) (test 0.09 K/ L 0.01-0.08 jxtz=843) IMMATURE GRANULOCYTES-RELATIVE PERCENT (BEAKER) 1 % 0-1 (test gpss=6380) CT, BRAIN, WITHOUT [id number] 15:31:00FINAL REPORT CT head without contrast 03/12/2017 [...] Paez Verified Date/Time: 03/12/2017 15:31:17 Reading Location: [address] Neuro Reading Room TROPOROCIO [id number] 15:26:00 Test Item Value Reference Range Comments TROPONIN I (BEAKER) (test vaur=253) 0.02 ng/mL 0.00-0.03 Troponin I (TnI) levels [...] acidosis, acute neurological disease, and persistent tachyarrhythmia.HEMOGLOBIN [id number] 12:38:00 Test Item Value Reference Range Comments HEMOGLOBIN A1C (BEAKER) (test smcr=514) 5.6 % 4.3-6.1 FastingRAD, CHEST, 1 VIEW, NON [id number] 10:06:00Reason for exam:->rule out pneumoniaShould this be [...] Benites Verified Date/Time: 03/12/2017 10:06:57 Reading Location: [facility] Radiology Reading Room [id number] 09:08:00 Test Item Value Reference Range Comments HOMOCYSTEINE (BEAKER) (test yxaw=523) 11.8 umol/L 5.1-15.4 FastingCREATINE KINASE (CK), TOTAL AND [id number] 08:55:00 Test Item Value Reference Range Comments CREATINE KINASE TOTAL (BEAKER) (test wxcj=794) 59 U/L 29-200 CREATINE KINASE-MB (BEAKER) (test eewe=552) 1.0 ng/mL 0.0-6.6 CREATINE KINASE-MB INDEX (BEAKER) (test oyvh=437) 1.7 % CK-MB Reference Range:<6.7 Normal6.7-10.0 Borderline>10.0 AbnormalFastingFastingTROPONIN [id number] 08:55:00 Test Item Value Reference Range Comments TROPONIN I (BEAKER) (test vrbp=170) < ng/mL 0.00-0.03 Troponin I (TnI) levels [...] acidosis, acute neurological disease, and persistent tachyarrhythmia.FastingLIPID [id number] 08:48:00 Test Item Value Reference Range Comments TRIGLYCERIDES (BEAKER) (test kchs=803) 151 mg/dL CHOLESTEROL (BEAKER) (test erwt=872) 147 mg/dL HDL CHOLESTEROL (BEAKER) (test upki=794) 29 mg/dL LDL CHOLESTEROL CALCULATED (BEAKER) (test 88 mg/dL xqie=985) Triglyceride Reference Range: Low Risk <150 Borderline 150- 199 High Risk 200-499 Very High Risk >=500Cholesterol Reference Range: Low Risk <200 Borderline 200-239 High Risk > 240HDL Cholesterol Reference Range: Low Risk >=60 High Risk <40LDL Cholesterol Reference Range: Optimal <100 Near Optimal 100-129 Borderline 130-159 High 160-189 Very High >=190 FastingBASIC METABOLIC [id number] 08:48:00 Test Item Value Reference Range Comments SODIUM (BEAKER) (test 136 meq/L 136-145 awvt=781) POTASSIUM (BEAKER) (test 4.4 meq/L 3.5-5.1 eueg=034) CHLORIDE (BEAKER) (test 104 meq/L 98-107 qvos=532) CO2 (BEAKER) (test 25 meq/L 22-29 piqv=456) BLOOD UREA NITROGEN 15 mg/dL 7-21 (BEAKER) (test uxup=871) CREATININE (BEAKER) (test 0.87 mg/dL 0.57-1.25 qfwt=104) GLUCOSE RANDOM (BEAKER) 102 mg/dL 70-105 (test axva=040) CALCIUM (BEAKER) (test 8.9 mg/dL 8.4-10.2 xrpx=037) EGFR (BEAKER) (test 87 mL/min/1.73 sq m ESTIMATED GFR IS NOT babc=3822) ACCURATE CREATININE CLEARANCE IN PREDICTING GLOMERULAR FILTRATION RATE. ESTIMATED GFR IS NOT APPLICABLE FOR DIALYSIS PATIENTS. FastingCBC W/PLT COUNT & AUTO [id number] 08:24:00 Test Item Value Reference Range Comments WHITE BLOOD CELL COUNT (BEAKER) (test ibaj=035) 5.7 K/ L 3.5-10.5 RED BLOOD CELL COUNT (BEAKER) (test jcyp=561) 4.23 M/ L 4.63-6.08 HEMOGLOBIN (BEAKER) (test hyup=221) 12.3 GM/DL 13.7-17.5 HEMATOCRIT (BEAKER) (test bhfw=394) 37.9 % 40.1-51.0 MEAN CORPUSCULAR VOLUME (BEAKER) (test ujuy=807) 89.6 fL 79.0-92.2 MEAN CORPUSCULAR HEMOGLOBIN (BEAKER) (test 29.1 pg 25.7-32.2 nxmu=206) MEAN CORPUSCULAR HEMOGLOBIN CONC (BEAKER) (test 32.5 GM/DL 32.3-36.5 ksmd=129) RED CELL DISTRIBUTION WIDTH (BEAKER) (test 15.9 % 11.6-14.4 vfiu=185) PLATELET COUNT (BEAKER) (test pbbw=226) 156 K/CU MM 150-450 MEAN PLATELET VOLUME (BEAKER) (test eadg=904) 10.2 fL 9.4-12.4 NUCLEATED RED BLOOD CELLS (BEAKER) (test 0 /100 WBC 0-0 bmjq=656) NEUTROPHILS RELATIVE PERCENT (BEAKER) (test 47 % zlzp=375) LYMPHOCYTES RELATIVE PERCENT (BEAKER) (test 37 % qcas=301) MONOCYTES RELATIVE PERCENT (BEAKER) (test 12 % cflm=227) EOSINOPHILS RELATIVE PERCENT (BEAKER) (test 3 % htgj=155) BASOPHILS RELATIVE PERCENT (BEAKER) (test 2 % tdff=951) NEUTROPHILS ABSOLUTE COUNT (BEAKER) (test 2.66 K/ L 1.78-5.38 oqmv=951) LYMPHOCYTES ABSOLUTE COUNT (BEAKER) (test 2.09 K/ L 1.32-3.57 pmza=944) MONOCYTES ABSOLUTE COUNT (BEAKER) (test 0.70 K/ L 0.30-0.82 jyrm=049) EOSINOPHILS ABSOLUTE COUNT (BEAKER) (test 0.15 K/ L 0.04-0.54 umob=325) BASOPHILS ABSOLUTE COUNT (BEAKER) (test 0.09 K/ L 0.01-0.08 zyzq=228) IMMATURE GRANULOCYTES-RELATIVE PERCENT (BEAKER) 1 % 0-1 (test izlr=7619) TSH/FREE T4 IF [id number] 03:38:00 Test Item Value Reference Range Comments THYROID STIMULATING HORMONE (BEAKER) (test 2.01 uIU/mL 0.35-4.94 kkgs=939) VITAMIN B12 AND [id number] 03:38:00 Test Item Value Reference Range Comments VITAMIN B12 (BEAKER) (test zlmz=297) 1008 pg/mL 213-816 FOLATE (BEAKER) (test jexa=227) 8.4 ng/mL >=7.0 CREATINE KINASE (CK), TOTAL AND [id number] 01:03:00 Test Item Value Reference Range Comments CREATINE KINASE TOTAL (BEAKER) (test kyzn=477) 66 U/L 29-200 CREATINE KINASE-MB (BEAKER) (test wlij=756) 1.4 ng/mL 0.0-6.6 CREATINE KINASE-MB INDEX (BEAKER) (test vbds=730) 2.1 % CK-MB Reference Range:<6.7 Normal6.7-10.0 Borderline>10.0 AbnormalTROPONIN [id number] 01:03:00 Test Item Value Reference Range Comments TROPONIN I (BEAKER) (test hjzs=039) 0.02 ng/mL 0.00-0.03 Troponin I (TnI) levels [...] acute neurological disease, and persistent tachyarrhythmia.BASIC METABOLIC [id number] 00:56:00 Test Item Value Reference Range Comments SODIUM (BEAKER) (test 136 meq/L 136-145 zmvs=597) POTASSIUM (BEAKER) (test 3.9 meq/L 3.5-5.1 dbsd=619) CHLORIDE (BEAKER) (test 104 meq/L 98-107 fjsd=151) CO2 (BEAKER) (test 24 meq/L 22-29 vfpc=992) BLOOD UREA NITROGEN 14 mg/dL 7-21 (BEAKER) (test axco=549) CREATININE (BEAKER) (test 0.87 mg/dL 0.57-1.25 szzu=627) GLUCOSE RANDOM (BEAKER) 104 mg/dL 70-105 (test bwxh=987) CALCIUM (BEAKER) (test 9.2 mg/dL 8.4-10.2 dwrh=984) EGFR (BEAKER) (test 87 mL/min/1.73 sq m ESTIMATED GFR IS NOT cihd=1957) ACCURATE CREATININE CLEARANCE IN PREDICTING GLOMERULAR FILTRATION RATE. ESTIMATED GFR IS NOT APPLICABLE FOR DIALYSIS PATIENTS. PROTHROMBIN [id number] 00:27:00 Test Item Value Reference Range Comments PROTIME (BEAKER) (test cpyw=958) 17.2 seconds 11.7-14.7 INR (BEAKER) (test szxc=006) 1.4 <=5.9 RECOMMENDED COUMADIN/WARFARIN INR THERAPY RANGESSTANDARD DOSE: 2.0 - 3.0 Includes: PROPHYLAXIS forvenous thrombosis, systemic embolization; TREATMENT for venous thrombosis and/or pulmonary embolus.HIGH RISK: Target INR is 2.5-3.5 for patients with mechanical heart valves.CBC W/PLT COUNT & AUTO [id number] 00:01:00 Test Item Value Reference Range Comments WHITE BLOOD CELL COUNT (BEAKER) (test mljw=534) 8.2 K/ L 3.5-10.5 RED BLOOD CELL COUNT (BEAKER) (test wiyh=091) 4.57 M/ L 4.63-6.08 HEMOGLOBIN (BEAKER) (test rlsy=933) 13.2 GM/DL 13.7-17.5 HEMATOCRIT (BEAKER) (test zeiu=522) 40.5 % 40.1-51.0 MEAN CORPUSCULAR VOLUME (BEAKER) (test vgvm=713) 88.6 fL 79.0-92.2 MEAN CORPUSCULAR HEMOGLOBIN (BEAKER) (test 28.9 pg 25.7-32.2 cojb=885) MEAN CORPUSCULAR HEMOGLOBIN CONC (BEAKER) (test 32.6 GM/DL 32.3-36.5 idwi=606) RED CELL DISTRIBUTION WIDTH (BEAKER) (test 15.9 % 11.6-14.4 fdyy=322) PLATELET COUNT (BEAKER) (test tezr=681) 198 K/CU MM 150-450 MEAN PLATELET VOLUME (BEAKER) (test lqlp=021) 11.2 fL 9.4-12.4 NUCLEATED RED BLOOD CELLS (BEAKER) (test 0 /100 WBC 0-0 hmka=486) NEUTROPHILS RELATIVE PERCENT (BEAKER) (test 57 % fsjl=639) LYMPHOCYTES RELATIVE PERCENT (BEAKER) (test 28 % yqyn=079) MONOCYTES RELATIVE PERCENT (BEAKER) (test 10 % luzr=248) EOSINOPHILS RELATIVE PERCENT (BEAKER) (test 3 % ikpw=761) BASOPHILS RELATIVE PERCENT (BEAKER) (test 1 % pddh=464) NEUTROPHILS ABSOLUTE COUNT (BEAKER) (test 4.66 K/ L 1.78-5.38 bksw=785) LYMPHOCYTES ABSOLUTE COUNT (BEAKER) (test 2.29 K/ L 1.32-3.57 ovwa=028) MONOCYTES ABSOLUTE COUNT (BEAKER) (test 0.81 K/ L 0.30-0.82 ybxb=092) EOSINOPHILS ABSOLUTE COUNT (BEAKER) (test 0.25 K/ L 0.04-0.54 vzoz=161) BASOPHILS ABSOLUTE COUNT (BEAKER) (test 0.10 K/ L 0.01-0.08 aynk=990) IMMATURE GRANULOCYTES-RELATIVE PERCENT (BEAKER) 1 % 0-1 (test motl=6981)
--- NOTE | 2018-04-03 09:17 | ER ---
Nurse's Notes [facility] Name: Maurice Morfin Age: 68 yrs Sex: Male : 1950 Arrival Date: 04/03/2018 Time: 08:47 Bed 13 Private MD: Yung Thomas Diagnosis: Atherosclerosis of [place] arteries of extremities with intermittent claudication, right leg Presentation: 04/03 08:52 Presenting complaint: Right calf pain that radiates to right foot x 1 month. Transition hb of care: patient was not received from another setting of care. Onset of symptoms is unknown. Risk Assessment: Do you want to hurt yourself or someone else? Patient reports no desire to harm self or others. Initial Sepsis Screen: Does the patient meet any 2 criteria? No. Patient's initial sepsis screen is negative. Does the patient have a suspected source of infection? No. Patient's initial sepsis screen is negative. Care prior to arrival: None. 08:52 Method Of Arrival: Ambulatory hb 08:52 Acuity: WAYLON 3 hb Historical: - Allergies: 08:50 Codeine; rb1 - Home Meds: 08:54 atorvastatin 80 mg Oral tab 1 tab once daily [Active]; clopidogrel 75 mg Oral tab 1 tab hb once daily [Active]; losartan-hydrochlorothiazide 100-25 mg Oral tab [Active]; Nitroglycerin 0.4 SL Oral [Active]; 08:50 tramadol 50 mg Oral tab 1 tab every 4-6 hours [Active]; pantoprazole 40 mg oral TbEC 1 rb1 tab once daily [Active]; - PMHx: 08:54 Cholelithiasis; COPD; CVA; Dementia; enlarged prostate; Hernia; Hypertension; IA; PVD; hb TIA; - PSHx: 08:50 Heart stents; Leg stents; leg bypass; Pacemaker; Cholecystectomy; rb1 - Immunization history:: Adult Immunizations up to date. - Social history:: Smoking status: Patient/guardian denies using tobacco. - Ebola Screening: : No symptoms or risks identified at this time. Screenin:54 Abuse screen: Denies threats or abuse. Denies injuries from another. Nutritional hb screening: No deficits noted. Tuberculosis screening: No symptoms or risk factors identified. Fall Risk Total Gudino Fall Scale indicates Low Risk Score (25-44 pts). Fall prevention measures have been instituted. Frequent Obs/Assesments occuring Family Present and informed to notify staff if they need to leave bedside As available Patient and Family Educated on Fall Prevention Program and strategies. Assessment: 08:50 General: Appears in no apparent distress. comfortable, Behavior is calm, cooperative, rb1 Denies fever. Pain: Complains of pain in right calf Pain radiates to right foot Pain currently is 8 out of 10 on a pain scale. Pain began x 1 month. Neuro: Level of Consciousness is awake, alert, obeys commands, Oriented to person, place, time, situation. Cardiovascular: Capillary refill < 3 seconds is brisk in bilateral fingers Pulses are palpable in right dorsalis pedis artery. Respiratory: Airway is patent Respiratory effort is even, unlabored, Respiratory pattern is regular, symmetrical. GI: No signs and/or symptoms were reported involving the gastrointestinal system. : No signs and/or symptoms were reported regarding the genitourinary system. Derm: Skin is dry, Skin is red, on the right lower leg. Skin temperature is warm. 09:30 Reassessment: Patient appears in no apparent distress at this time. No changes from rb1 previously documented assessment. Family at bedside. Vital Signs: 08:53 BP 173 / 75; Pulse 74; Resp 16; Temp 97.8; Pulse Ox 100% on R/A; Pain 6/10; hb 09:30 BP 155 / 68; Pulse 63; Resp 17; Pulse Ox 100% on R/A; Pain 6/10; rb1 ED Course: 08:47 Patient arrived in ED. mr 08:47 Yung Thomas MD is Private Physician. mr 08:50 [facility] kb 08:50 Hector Torrez MD is Attending Physician. kb 08:53 Triage completed. hb 08:53 Arm band placed on. hb 08:54 Patient has correct armband on for positive identification. Bed in low position. Call light in reach. Side rails up X 1. 08:56 Lauryn Guillaume, JAVAN is Primary Nurse. rb1 09:30 No provider procedures requiring assistance completed. Patient did not have IV access rb1 during this emergency room visit. Administered Medications: No medications were administered Outcome: 09:16 Discharge ordered by . kb 09:30 Patient left the ED. rb1 09:30 Discharged to home via wheelchair, with family. rb1 09:30 Condition: stable 09:30 Discharge instructions given to patient, Instructed on discharge instructions, follow up and referral plans. Demonstrated understanding of instructions, follow-up care, Prescriptions given X none Signatures: Dilia Bennett FNP-C FNP-Elizabeth Lety ColbertLauryn, RN RN rb1 Isatu Keyes RN RN Corrections: (The following items were deleted from the chart) 08:55 08:54 Fall Risk Total Gudino Fall Scale indicates Low Risk Score (25-44 pts). Fall hb prevention measures have been instituted. Side Rails Up X 2 Frequent Obs/Assesments occuring Family Present and informed to notify staff if they need to leave bedside As available Patient and Family Educated on Fall Prevention Program and strategies. : 08:54 Allergies: NKDA; rb1 : 08:54 Home Meds: albuterol sulfate 2.5 mg /3 mL (0.083 %) Inhl nebu for Chronic rb1 Obstructive Pulmonary Disease; : 08:54 Home Meds: aspirin 81 mg Oral chew 1 tab once daily; rb1 : 08:54 Home Meds: BRILINTA 90 mg Oral tab 1 tab 2 times per day; rb1 09: 08:54 Home Meds: buspirone 15 mg Oral tab 1 tab 2 times per day; rb1 : 08:54 Home Meds: Hyzaar Oral; rb1 09:15 08:54 Home Meds: ipratropium bromide (bulk) miscellaneous powd daily; rb1 : 08:54 Home Meds: omeprazole 20 mg Oral cpDR 1 cap once daily for Gastroesophageal rb1 reflux; : 08:54 Home Meds: pentoxifylline 400 mg Oral TbER; rb1
--- NOTE | 2018-04-03 09:17 | EDPHYS ---
Physician Documentation [facility] Name: Maurice Morfin Age: 68 yrs Sex: Male : 1950 Arrival Date: 04/03/2018 Time: 08:47 Bed 13 Private MD: Yung Thomas ED Physician Hector Torrez HPI: 04/03 09:01 This 68 yrs old Male presents to ER via Ambulatory with complaints of Leg kb Pain. 09:01 The patient presents with pain, that is acute. The complaints affect the right calf. kb Context: The problem was sustained at an unknown site, resulted from an unknown cause, the patient can fully bear weight, the patient is able to ambulate, Problem is a result from a previous injury: No. Onset: The symptoms/episode began/occurred 1 month(s) ago. Modifying factors: The symptoms are alleviated by nothing. the symptoms are aggravated by weight bearing. Associated signs and symptoms: Pertinent positives: calf tenderness, Pertinent negatives fever, nausea, numbness, rash, swelling, tingling, vomiting, warmth, weakness. Treatment prior to arrival includes: no previous treatment. Severity of symptoms: At their worst the symptoms were moderate, in the emergency department the symptoms are unchanged. The patient has not experienced similar symptoms in the past. The patient has been recently seen at the [facility] Emergency Department, a couple of weeks ago, for similar complaints X-rays were performed, an ultrasound was performed, was given a prescription for pain medications. Historical: - Allergies: 08:50 Codeine; rb1 - Home Meds: 08:54 atorvastatin 80 mg Oral tab 1 tab once daily [Active]; clopidogrel 75 mg Oral tab 1 tab hb once daily [Active]; losartan-hydrochlorothiazide 100-25 mg Oral tab [Active]; Nitroglycerin 0.4 SL Oral [Active]; 08:50 tramadol 50 mg Oral tab 1 tab every 4-6 hours [Active]; pantoprazole 40 mg oral TbEC 1 rb1 tab once daily [Active]; - PMHx: 08:54 Cholelithiasis; COPD; CVA; Dementia; enlarged prostate; Hernia; Hypertension; NH; PVD; hb TIA; - PSHx: 08:50 Heart stents; Leg stents; leg bypass; Pacemaker; Cholecystectomy; rb1 - Immunization history:: Adult Immunizations up to date. - Social history:: Smoking status: Patient/guardian denies using tobacco. - Ebola Screening: : No symptoms or risks identified at this time. ROS: 08:59 Constitutional: Negative for fever, chills, and weight loss, Cardiovascular: Negative kb for chest pain, palpitations, and edema, Respiratory: Negative for shortness of breath, cough, wheezing, and pleuritic chest pain, Abdomen/GI: Negative for abdominal pain, nausea, vomiting, diarrhea, and constipation, Back: Negative for injury and pain, Skin: Negative for injury, rash, and discoloration, Neuro: Negative for headache, weakness, numbness, tingling, and seizure. 08:59 MS/extremity: Positive for pain, of the right calf. Exam: 08:59 Constitutional: This is a well developed, well nourished patient who is awake, alert, kb and in no acute distress. Head/Face: Normocephalic, atraumatic. Chest/axilla: Normal chest wall appearance and motion. Nontender with no deformity. No lesions are appreciated. Cardiovascular: Regular rate and rhythm with a normal S1 and S2. No gallops, murmurs, or rubs. Normal PMI, no JVD. No pulse deficits. Respiratory: Lungs have equal breath sounds bilaterally, clear to auscultation and percussion. No rales, rhonchi or wheezes noted. No increased work of breathing, no retractions or nasal flaring. Abdomen/GI: Soft, non-tender, with normal bowel sounds. No distension or tympany. No guarding or rebound. No evidence of tenderness throughout. Skin: Warm, dry with normal turgor. Normal color with no rashes, no lesions, and no evidence of cellulitis. MS/ Extremity: Pulses equal, no cyanosis. Neurovascular intact. Full, normal range of motion. Neuro: Awake and alert, GCS 15, oriented to person, place, time, and situation. Cranial nerves II-XII grossly intact. Motor strength 5/5 in all extremities. Sensory grossly intact. Cerebellar exam normal. Normal gait. Vital Signs: 08:53 BP 173 / 75; Pulse 74; Resp 16; Temp 97.8; Pulse Ox 100% on R/A; Pain 6/10; hb 09:30 BP 155 / 68; Pulse 63; Resp 17; Pulse Ox 100% on R/A; Pain 6/10; rb1 MDM: 08:50 Patient medically screened. kb 08:59 Data reviewed: vital signs, nurses notes. Data interpreted: Pulse oximetry: on room air kb is 100 %. Interpretation: normal. 08:59 Data reviewed: old medical records, arterial and venous US done on 03/20/18, as well as, kb x-ray of tib/fib. x-ray and venous US wnl. Arterial US showed PVD. 09:07 Counseling: I had a detailed discussion with the patient and/or guardian regarding: the kb historical points, exam findings, and any diagnostic results supporting the discharge/admit diagnosis, the need for outpatient follow up, vascular, to return to the emergency department if symptoms worsen or persist or if there are any questions or concerns that arise at home. Administered Medications: No medications were administered Disposition: 10:18 Co-signature as Attending Physician, Hector Torrez MD. rn Disposition: 04/03/18 09:16 Discharged to Home. Impression: Atherosclerosis of [place] arteries of extremities with intermittent claudication, right leg. - Condition is Stable. - Discharge Instructions: Intermittent Claudication, Peripheral Vascular Disease, [id number]. - Medication Reconciliation Form, Thank You Letter, Antibiotic Education, Prescription Opioid Use form. - Follow up: Private Physician; When: 2 - 3 days; Reason: Recheck today's complaints, Continuance of care, Re-evaluation by your physician. Follow up: Emergency Department; When: As needed; Reason: Worsening of condition. Signatures: Dilia Bennett, DIRECTOR RELIGIOUS EDUCATION-C DIRECTOR RELIGIOUS EDUCATION-Ckb Hector Torrez MD MD rn Barber, Rebecca, JAVAN RN rb1 Isatu Keyes RN RN Corrections: (The following items were deleted from the chart) 09: 08:59 Data reviewed: old medical records, arterial and venous US done on 03/25/18, as kb well as, x-ray of tib/fib. x-ray and venous US wnl. Arterial US showed PVD. kb 09:15 08:54 Allergies: NKDA; hb rb1 09:15 08:54 Home Meds: albuterol sulfate 2.5 mg /3 mL (0.083 %) Inhl nebu for Chronic rb1 Obstructive Pulmonary Disease; hb 09:15 08:54 Home Meds: aspirin 81 mg Oral chew 1 tab once daily; hb rb1 09:15 08:54 Home Meds: BRILINTA 90 mg Oral tab 1 tab 2 times per day; rb1 :15 08:54 Home Meds: buspirone 15 mg Oral tab 1 tab 2 times per day; rb1 :15 08:54 Home Meds: Hyzaar Oral; rb1 09:15 08:54 Home Meds: ipratropium bromide (bulk) miscellaneous powd daily; rb1 : 08:54 Home Meds: omeprazole 20 mg Oral cpDR 1 cap once daily for Gastroesophageal rb1 reflux; hb :15 08:54 Home Meds: pentoxifylline 400 mg Oral TbER; rb1 09:30 09:16 04/03/2018 09:16 Discharged to Home. Impression: Atherosclerosis of [place] rb1 arteries of extremities with intermittent claudication, right leg. Condition is Stable. Discharge Instructions: Intermittent Claudication, Peripheral Vascular Disease, [id number]. Forms are Medication Reconciliation Form, Thank You Letter, Antibiotic Education, Prescription Opioid Use. Follow up: Private Physician; When: 2 - 3 days; Reason: Recheck today's complaints, Continuance of care, Re-evaluation by your physician. Follow up: Emergency Department; When: As needed; Reason: Worsening of condition. kb
[2018-04-03 09:37] VITALS: BP 173/75; TEMP 97.8; O2SAT 100
== END 2018-04-03 09:30 | disposition home or self-care (01) ==
LOC: ER 08:44
DX: I70.211 Atherosclerosis of native arteries of extremities with intermittent claudication, right leg (principal); J44.9 Chronic obstructive pulmonary disease, unspecified; N40.0 Benign prostatic hyperplasia without lower urinary tract symptoms; I10 Essential (primary) hypertension; Z88.5 Allergy status to narcotic agent; Z86.73 Personal history of transient ischemic attack (TIA), and cerebral infarction without residual deficits
CPT/HCPCS: 99282

== ENCOUNTER 2018-05-18 14:19 | Observation (INO) | payer OTHER ==
--- OUTSIDE RECORDS SUMMARY | 2018-05-18 14:26 | XMS REPORT | Clinical Summary ---
:1950 Demographics Address [address] [place] [address] Home Phone Mobile Phone Preferred Language Tajik Marital Status Unknown Lutheran Affiliation Unknown Race White Ethnic Group Not or Author Organization [facility] Address [address] [place] [address] Support Name Relationship Address Phone Mami Pena [address] [place] [address] Kvng Pena [address] [place] [address] Care Team Providers Name Role Phone Yung Thomas Destinee Primary Care Provider Allergies No Known Allergies Medications Medication Sig Dispensed Refills Start End Date Status Date albuterol Take 2.5 mg by 0 Active (PROVENTIL) 2.5 nebulization 4 mg/0.5 mL Nebu (four) times nebulizer solution daily. ipratropium Take 500 mcg by 0 Active (ATROVENT) 0.02 % nebulization nebulizer solution every 6 (six) hours. metoprolol Take 25 mg by 0 Active (LOPRESSOR) 25 MG mouth 2 (two) tablet times daily. omeprazole Take 20 mg by 0 Active (PRILOSEC) 20 MG mouth daily. capsule budesonide-formotero Inhale 2 puffs 0 Active l (SYMBICORT) by mouth via 160-4.5 inhaler 2 (two) mcg/actuation times daily. inhaler acetaminophen-codein Take 1 tablet by 0 Active e (TYLENOL #3) mouth every 4 300-30 mg per tablet (four) hours as needed for Pain. aspirin 81 MG Take 1 tablet 90 tablet 3 12/04/19 Active chewable tablet (81 mg total) by 8 19 mouth daily. atorvastatin Take 0.5 tablets 90 tablet 3 12/03/19 Active (LIPITOR) 80 MG (40 mg total) by 8 19 tablet mouth nightly. clopidogrel (PLAVIX) Take 1 tablet 90 tablet 12/03/19 Active 75 mg tablet (75 mg total) by 8 19 mouth daily. gabapentin Take 1 capsule 90 capsule 11 04/09/19 Active (NEURONTIN) 300 MG (300 mg total) 9 20 capsule by mouth 3 (three) times daily. aspirin 325 MG Take 325 mg by 0 12/03/19 Discontinued tablet mouth daily. 18 clopidogrel (PLAVIX) Take 75 mg by 0 12/03/19 Discontinued 75 mg tablet mouth daily. 18 metoprolol Take 25 mg by 0 04/06/19 Discontinued (LOPRESSOR) 25 MG mouth 2 (two) 19 tabletIndications: times daily. hypertension pantoprazole Take 40 mg by 0 12/03/19 Discontinued (PROTONIX) 40 MG mouth daily. 18 tabletIndications: gastroesophageal reflux disease aspirin 81 MG EC Take 81 mg by 0 04/06/19 Discontinued tabletIndications: mouth daily. 19 myocardial infarction prevention clopidogrel (PLAVIX) Take 75 mg by 0 12/03/19 Discontinued 75 mg mouth daily. 18 tabletIndications: since pacemaker 5 years ago atorvastatin Take 1 tablet 90 tablet 0 12/03/19 Discontinued (LIPITOR) 80 MG (80 mg total) by 8 18 tablet mouth nightly. Active Problems Problem Noted Date Leg pain 04/06/2018 PVD (peripheral vascular disease) 04/06/2018 Ischemic stroke 11/30/2017 S/P admn tPA in diff fac w/n last 24 hr bef adm to crnt fac 11/30/2017 Essential hypertension 03/12/2017 Received tissue plasminogen activator (t-PA) less than 24 hours prior to 03/12 arrival Acute ischemic stroke 03/11/2017 HLD (hyperlipidemia) 01/17/2016 Peripheral vascular disease 01/14/2016 Postoperative anemia 01/14/2016 Coronary artery disease involving [place] coronary artery 01/10/2016 PAD (peripheral artery disease) 01/10/2016 HTN (hypertension) 01/10/2016 Iliac artery stenosis, bilateral 01/10/2016 Unstable angina 01/10/2016 COPD (chronic obstructive pulmonary disease) 01/10/2016 Tobacco abuse 01/10/2016 ACS (acute coronary syndrome) 01/10/2016 Encounters Date Type Specialty Care Team Description 04/08/2018 Surgery Bandeali, PERIPHERAL ANGIOS / Salman AORTOGRAM MD Lauri 04/07/2018 Orders Only General Internal Medicine 04/06/2018 - Hospital Encounter Cardiology Sarah Cooper, Right leg pain ( Primary Dx); 04/10/2018 DO PVD (peripheral vascular disease) ([facility]); Devante Rodriguez Current smoker; MD Luis Hypertensive urgency 04/06/2018 Travel 11/30/2017 - Hospital Encounter Intensive Care Eze Gil ACS (acute coronary 12/02/2017 MD Jose syndrome) ([facility]) after 05/17/2017 Family History Medical History Relation Name Comments Tuberculosis Father Cancer Mother Heart disease Mother Relation Name Status Comments Father Mother Social History Tobacco Use Types Packs/Day Years Used Date Current Every Day Smoker Cigarettes 0.5 50 Smokeless Tobacco: Never Used Tobacco Cessation: Ready to Quit: No; Counseling Given: No Comments: 2 cigarettes a day Alcohol Use Drinks/Week oz/Week Comments No Sex Assigned at Date Recorded Not on file Job Start Date Occupation Industry Not on file Not on file Not on file Travel History Travel Start Travel End No recent travel history available. Last Filed Vital Signs Vital Sign Reading Time Taken Blood Pressure 147/67 04/09/2018 3:23 PM LOAN PROCESSING SUPERVISOR Pulse 60 04/09/2018 3:23 PM LOAN PROCESSING SUPERVISOR Temperature 36.4 C (97.6 F) 04/09/2018 3:23 PM LOAN PROCESSING SUPERVISOR Respiratory Rate 18 04/09/2018 3:23 PM LOAN PROCESSING SUPERVISOR Oxygen Saturation 97% 04/09/2018 3:23 PM LOAN PROCESSING SUPERVISOR Inhaled Oxygen Concentration - - Weight 69.7 kg (153 lb 9.6 oz) 04/08/2018 6:29 AM LOAN PROCESSING SUPERVISOR Height 175.3 cm (5' 9") 04/06/2018 1:19 PM LOAN PROCESSING SUPERVISOR Body Mass Index 22.68 04/08/2018 6:29 AM LOAN PROCESSING SUPERVISOR Plan of Treatment Not on file Implants Implanted Type Area Auto Glass Technician Device Shelf Model / Identifier Expiration Serial / Date Lot Grft Eptfe-Heparin Rng [id number] - [id number] Graft/Pa N/A: MARIELENA PRESCOTT & 09/01/2019 [id number] / Implanted: Qty: 1 on 01/13/2016 by Oniel Smith MD [facility] Arterial ASSC: MED PRDT [id number] / Procedures Procedure Name Priority Date/Time Associated Comments Diagnosis VASCULAR DIAGRAM 05/05/2018 4:01 -SCAN PM LOAN PROCESSING SUPERVISOR CARDIAC CATH REPORT - 04/25/2018 2:01 SCAN PM LOAN PROCESSING SUPERVISOR RHYTHM STRIP - SCAN 04/25/2018 2:01 PM LOAN PROCESSING SUPERVISOR VASCULAR DIAGRAM 04/25/2018 2:01 -SCAN PM LOAN PROCESSING SUPERVISOR TRANSFUSION SERVICE 04/09/2018 6:00 REPORT - SCAN PM LOAN PROCESSING SUPERVISOR CBC W/PLT COUNT & Routine 04/09/2018 3:55 Results for this AUTO DIFFERENTIAL AM LOAN PROCESSING SUPERVISOR procedure are in the results section. MAGNESIUM Routine 04/09/2018 3:55 Results for this AM LOAN PROCESSING SUPERVISOR procedure are in the results section. BASIC METABOLIC PANEL Routine 04/09/2018 3:55 Results for this (7) AM LOAN PROCESSING SUPERVISOR procedure are in the results section. CBC W/PLT COUNT & Routine 04/09/2018 3:55 Results for this AUTO DIFFERENTIAL AM LOAN PROCESSING SUPERVISOR procedure are in the results section. POCT-ACT Routine 04/08/2018 7:42 Results for this PM LOAN PROCESSING SUPERVISOR procedure are in the results section. PERIPHERAL ANGIOS / 04/08/2018 3:53 PAD (peripheral AORTOGRAM PM LOAN PROCESSING SUPERVISOR artery disease) (HCC) APTT Routine 04/08/2018 8:31 Results for this AM LOAN PROCESSING SUPERVISOR procedure are in the results section. TYPE AND SCREEN, Routine 04/08/2018 6:03 Results for this AUTOMATED AM LOAN PROCESSING SUPERVISOR procedure are in the results section. LACTIC ACID, VENOUS Routine 04/08/2018 6:03 Results for this AM LOAN PROCESSING SUPERVISOR procedure are in the results section. CREATINE KINASE (CK) Routine 04/08/2018 6:03 Results for this AM LOAN PROCESSING SUPERVISOR procedure are in the results section. APTT Routine 04/08/2018 2:34 Results for this AM LOAN PROCESSING SUPERVISOR procedure are in the results section. NERVE CONDUCTION Routine 04/07/2018 6:25 Results for this STUDIES; 3-4 STUDIES PM LOAN PROCESSING SUPERVISOR procedure are in the results section. CT/CTA AAA AND RUNOFF STAT 04/07/2018 2:43 Results for this PM LOAN PROCESSING SUPERVISOR procedure are in the results section. VENOUS DOPPLER LEG, Routine 04/07/2018 1:52 Results for this RIGHT PM LOAN PROCESSING SUPERVISOR procedure are in the results section. ECG 12-LEAD Routine 04/07/2018 11:08 AM LOAN PROCESSING SUPERVISOR Procedure Note - Interface, External Ris In - 04/07/2018 11:18 AM LOAN PROCESSING SUPERVISOR Ventricular Rate 60 BPM Atrial Rate 60 BPM P-R Interval 164 ms QRS Duration 92 ms Q-T Interval 398 ms QTC Calculation(Bazett) 398 ms R [place] 4 degrees T [place] 64 degrees Electronic atrial pacemaker When compared with ECG of 07-APR-2018 11:07, No significant change was found ECG 12-LEAD Routine 04/07/2018 11:07 AM LOAN PROCESSING SUPERVISOR Procedure Note - Interface, External Ris In - 04/07/2018 11:17 AM LOAN PROCESSING SUPERVISOR Ventricular Rate 60 BPM Atrial Rate 60 BPM P-R Interval 164 ms QRS Duration 90 ms Q-T Interval 396 ms QTC Calculation(Bazett) 396 ms P [place] -12 degrees R [place] 6 degrees T [place] 60 degrees Electronic atrial pacemaker When compared with ECG of 01-DEC-2017 11:15, No significant change was found ECG 12-LEAD STAT 04/07/2018 11:07 AM LOAN PROCESSING SUPERVISOR TROPONIN I Routine 04/07/2018 11:05 AM LOAN PROCESSING SUPERVISOR ECHOCARDIOGRAM REPORT - 04/07/2018 9:50 AM LOAN PROCESSING SUPERVISOR SCAN 2D ECHO W/ DOPPLER Routine 04/06/2018 9:45 PM LOAN PROCESSING SUPERVISOR Results for this (CW/PW/COLOR) procedure are in the results section. ARTERIAL DOPPLER LEGS LORAINE 04/06/2018 7:30 PM LOAN PROCESSING SUPERVISOR Results for this BILATERAL procedure are in the results section. CBC W/PLT COUNT & AUTO STAT 04/06/2018 3:47 PM LOAN PROCESSING SUPERVISOR Results for this DIFFERENTIAL procedure are in the results section. BASIC METABOLIC PANEL (7) STAT 04/06/2018 3:47 PM LOAN PROCESSING SUPERVISOR PT/APTT STAT 04/06/2018 3:47 PM LOAN PROCESSING SUPERVISOR CBC W/PLT COUNT & AUTO STAT 04/06/2018 3:47 PM LOAN PROCESSING SUPERVISOR Results for this DIFFERENTIAL procedure are in the results section. ARRYTHMIA IMPLANT REPORT - 02/03/2018 2:53 PM LOAN PROCESSING SUPERVISOR SCAN ARRYTHMIA IMPLANT REPORT - 12/25/2017 8:00 AM CDT SCAN ARRYTHMIA IMPLANT REPORT - 12/06/2017 2:00 PM CDT SCAN RHYTHM STRIP - SCAN 12/06/2017 2:00 PM CDT CBC W/PLT COUNT & AUTO Routine 12/02/2017 3:11 AM CDT Results for this DIFFERENTIAL procedure are in the results section. TSH/FREE T4 IF INDICATED Routine 12/02/2017 3:11 AM CDT CBC W/PLT COUNT & AUTO Routine 12/02/2017 3:11 AM CDT Results for this DIFFERENTIAL procedure are in the results section. BASIC METABOLIC PANEL (7) Routine 12/02/2017 3:11 AM CDT CAROTID DOPPLER BILATERAL Routine 12/01/2017 10:12 PM CDT TROPONIN I Routine 12/01/2017 8:17 PM CDT ECHOCARDIOGRAM REPORT - 12/01/2017 6:[address] BRAIN WITHOUT IV STAT 12/01/2017 6:30 PM CDT Results for this CONTRAST PORTABLE procedure are in the results section. TRANSFUSION SERVICE REPORT 12/01/2017 6:03 PM CDT - SCAN POTASSIUM Routine 12/01/2017 3:53 PM CDT TROPONIN I Routine 12/01/2017 3:53 PM CDT ECG 12-LEAD Routine 12/01/2017 11:15 AM CDT PACEMAKER CHECK Routine 12/01/2017 10:56 AM CDT 2D ECHO W/ DOPPLER Routine 12/01/2017 9:37 AM CDT Results for this (CW/PW/COLOR) procedure are in the results section. PHOSPHORUS STAT 12/01/2017 8:14 AM CDT MAGNESIUM STAT 12/01/2017 8:14 AM CDT TROPONIN I Routine 12/01/2017 8:14 AM CDT ECG 12-LEAD Routine 12/01/2017 7:44 AM CDT CBC W/PLT COUNT & AUTO Routine 12/01/2017 3:33 AM CDT Results for this DIFFERENTIAL procedure are in the results section. HEMOGLOBIN A1C Routine 12/01/2017 3:33 AM CDT CBC W/PLT COUNT & AUTO Routine 12/01/2017 3:33 AM CDT Results for this DIFFERENTIAL procedure are in the results section. LIPID PANEL Routine 12/01/2017 3:33 AM CDT BASIC METABOLIC PANEL (7) Routine 12/01/2017 3:33 AM CDT ECG 12-LEAD Routine 11/30/2017 6:19 PM CDT CBC W/PLT COUNT & AUTO Routine 11/30/2017 5:41 PM CDT Results for this DIFFERENTIAL procedure are in the results section. TYPE AND SCREEN, AUTOMATED Routine 11/30/2017 5:41 PM CDT VITAMIN B12 AND FOLATE Routine 11/30/2017 5:41 PM CDT HEMOGLOBIN A1C AP Routine 11/30/2017 5:41 PM CDT TROPONIN I Routine 11/30/2017 5:41 PM CDT CBC W/PLT COUNT & AUTO Routine 11/30/2017 5:41 PM CDT Results for this DIFFERENTIAL procedure are in the results section. BASIC METABOLIC PANEL (7) Routine 11/30/2017 5:41 PM CDT after 05/17/2017 Results VASCULAR DIAGRAM -SCAN (05/05/2018 4:01 PM LOAN PROCESSING SUPERVISOR)Only the most recent of2 resultswithin the time period is included. Narrative Performed At CARDIAC CATH REPORT - SCAN (04/25/2018 2:01 PM LOAN PROCESSING SUPERVISOR) Narrative Performed At RHYTHM STRIP - SCAN (04/25/2018 2:01 PM LOAN PROCESSING SUPERVISOR)Only the most recent of2 resultswithin the time period is included. Narrative Performed At TRANSFUSION SERVICE REPORT - SCAN (04/09/2018 6:00 PM LOAN PROCESSING SUPERVISOR)Only the most recent of2 resultswithin the time period is included. Narrative Performed At CBC with platelet count + automated diff (04/09/2018 3:55 AM LOAN PROCESSING SUPERVISOR)Only the most recent of5 resultswithin the time period is included. WBC 4.7 3.5 - 10.5 K/L [facility] RBC 3.54 (L) 4.63 - 6.08 M/L [facility] Hemoglobin 8.8 (L) 13.7 - 17.5 GM/DL [facility] Hematocrit 28.9 (L) 40.1 - 51.0 % [facility] MCV 81.6 79.0 - 92.2 fL [facility] MCH 24.9 (L) 25.7 - 32.2 pg [facility] MCHC 30.4 (L) 32.3 - 36.5 GM/DL [facility] RDW 18.3 (H) 11.6 - 14.4 % [facility] Platelets 156 150 - 450 K/CU MM [facility] MPV 11.0 9.4 - 12.4 fL [facility] nRBC 0 0 - 0 /100 WBC [facility] % Neutros 55 % [facility] % Lymphs 29 % [facility] % Monos 11 % [facility] % Eos 3 % [facility] % Baso 2 % [facility] # Neutros 2.59 1.78 - 5.38 K/L [facility] # Lymphs 1.34 1.32 - 3.57 K/L [facility] # Monos 0.51 0.30 - 0.82 K/L [facility] # Eos 0.15 0.04 - 0.54 K/L [facility] # Baso 0.07 0.01 - 0.08 K/L [facility] Immature Granulocytes-Relative 1 0 - 1 % [facility] Specimen Blood Performing Organization Address City/State/Zipcode Phone Number [facility] [address] [place] [address] [phone] CENTER Magnesium (04/09/2018 3:55 AM LOAN PROCESSING SUPERVISOR)Only the most recent of2 resultswithin the time period is included. Magnesium 1.9 1.6 - 2.6 mg/dL [facility] Specimen Blood Performing Organization Address City/[facility] Phone Number [address] [address] [phone] [place] Basic Metabolic Panel (04/09/2018 3:55 AM LOAN PROCESSING SUPERVISOR)Only the most recent of5 resultswithin the time period is included. Sodium 136 136 - 145 meq/L [facility] Potassium 3.8 3.5 - 5.1 meq/L [facility] Chloride 107 98 - 107 meq/L [facility] CO2 24 22 - 29 meq/L [facility] BUN 14 7 - 21 mg/dL [facility] Creatinine 0.84 0.57 - 1.25 mg/dL [facility] Glucose 113 (H) 70 - 105 mg/dL [facility] Calcium 8.1 (L) 8.4 - 10.2 mg/dL [facility] EGFR 91Comment: ESTIMATED GFR IS mL/min/1.73 sq m [facility] NOT ACCURATE CREATININE [facility] CENTER CLEARANCE IN PREDICTING GLOMERULAR FILTRATION RATE. ESTIMATED GFR IS NOT APPLICABLE FOR DIALYSIS PATIENTS. Specimen Blood Performing Organization Address [facility] Phone Number [address] [address] [place] POC ACTIVATED CLOTTING TIME (04/08/2018 7:42 PM LOAN PROCESSING SUPERVISOR) Activated Clotting Time 158Comment: TESTED AT sec [facility]SC [address] [place] [id number] Specimen Blood Performing Organization Address City/[facility] Phone Number [address] [phone] [place] aPTT (04/08/2018 8:31 AM LOAN PROCESSING SUPERVISOR)Only the most recent of2 resultswithin the time period is included. PTT 76.2 (H) 22.5 - 36.0 seconds [facility] Specimen Blood Performing Organization Address City/[facility] Phone Number [address] [address] [phone] CENTER Type and screen, automated (04/08/2018 6:03 AM LOAN PROCESSING SUPERVISOR)Only the most recent of2 resultswithin the time period is included. ABO/RH AUTOMATED (BEAKER) O POSITIVE [facility] Ab Scrn NEGATIVE [facility] Specimen Blood Performing Organization Address City/[facility] Phone Number [address] [address] Lactic acid, venous, whole blood (04/08/2018 6:03 AM LOAN PROCESSING SUPERVISOR) Lactate, Venous 1.1 0.5 - 2.2 mmol/L [facility] Specimen Blood Performing Organization Address City/[facility] Phone Number [address] [address] [place] Creatine Kinase (CK) (04/08/2018 6:03 AM LOAN PROCESSING SUPERVISOR) Total CK 74 29 - 200 U/L [facility] Specimen Blood Performing Organization Address City/[facility] Phone Number [address] [address] [place] NERVE CONDUCTION STUDIES; 3-4 STUDIES (04/07/2018 6:25 PM LOAN PROCESSING SUPERVISOR) Narrative Performed At [facility] Neurophysiology Department ELECTROMYOGRAPHY / NERVE CONDUCTION STUDY [address] [place] [address] [address] [place] [address] Name: Mami Pena Address:Date of : 1950 Gender: Male Date of Exam: 04/07/2018 4:30 PM Referring Physician: Carole Waller Examining Physician: Melody Benavidez Patient History: Patient presents with a 1 month history of pain in posterior calf, he denies any numbness/tingling or weakness, or low-back pain.On exam, he has 5/5 strength except knee flexion which is limited by pain. This study was done to evaluate for nerve entrapment or radiculopathy. Motor Nerve Conduction: Nerve and Site Latency Amplitude Segment Latency Difference Distance Conduction Velocity Peroneal.R Ankle 4.3 ms 4.9 mV Extensor digitorum brevis-Ankle 4.3 ms Fibula (head) 11.6 ms 4.2 mV Ankle-Fibula (head) 7.3 ms 275 mm 38 m/s Knee 14.6 ms 5.1 mV Fibula (head)-Knee 3.0 ms 120 mm 40 m/s Tibial.R Ankle 3.9 ms 5.1 mV Abductor hallucis-Ankle 3.9 ms Popliteal fossa 15.0 ms 3.1 mV Ankle-Popliteal fossa 11.1 ms 440 mm 40 m/s F-Wave Studies Nerve M-Latency F-Latency Peroneal.R 14.6 53.0 Tibial.R 15.0 57.3 Sensory Nerve Conduction: Nerve and Site Onset Latency Peak Latency Amplitude Segment Latency Difference Distance Conduction Velocity Sural.R Lower leg 2.9 ms 3.7 ms 12 mV Ankle-Lower leg 2.9 ms 140 mm 48 m/s Needle EMG Examination: Insertional Spontaneous Activity Volitional MUAPs Muscle Insertional Fibs +Wave Fasc Duration Amplitude Poly Pattern Effort Tibialis anterior.R Normal None None None Normal Normal None Normal Max. Gastrocnemius (Medial head).R Normal None None None Normal Normal None Normal Max. Vastus medialis.R Normal None None None Normal Normal None Normal Max. Semimembranosus.R Normal None None None Normal Normal None Normal Max. Gluteus medius.R Normal None None None Normal Normal None Normal Max. Summary of findings: 1.Sensory studies of the right sural nerve showed normal findings. 2.Motor studies of the right peroneal and tibial nerves showed normal findings.F-wave latencies were normal. 3.Electromyography of the right lower limb was done using a disposable concentric needle.There was no abnormal spontaneous activity.All muscles tested showed normal MUAP morphologies and recruitment patterns. Conclusions: This is a normal electrodiagnostic study. There is no electrophysiologic evidence of large-fiber peripheral neuropathy, nerve entrapment or denervation in the right lower limb. Melody Benavidez M.D. Procedure Note Interface, External Ris In - 04/08/2018 6:53 AM LOAN PROCESSING SUPERVISOR [facility] Neurophysiology Department ELECTROMYOGRAPHY / NERVE CONDUCTION STUDY [address] [facility] [address] [place] [address] Name: Mami Pena Address: Date of : 1950 Gender: Male Date of Exam: 04/07/2018 4:30 PM Referring Physician: Carole Waller Examining Physician: Melody Benavidez Patient History: Patient presents with a 1 month history of pain in posterior calf, he denies any numbness/tingling or weakness, or low-back pain. On exam, he has 5/5 strength except knee flexion which is limited by pain. This study was done to evaluate for nerve entrapment or radiculopathy. Motor Nerve Conduction: Nerve and Site Latency Amplitude Segment Latency Difference Distance Conduction Velocity Peroneal.R Ankle 4.3 ms 4.9 mV Extensor digitorum brevis-Ankle 4.3 ms Fibula (head) 11.6 ms 4.2 mV Ankle-Fibula (head) 7.3 ms 275 mm 38 m/s Knee 14.6 ms 5.1 mV Fibula (head)-Knee 3.0 ms 120 mm 40 m/s Tibial.R Ankle 3.9 ms 5.1 mV Abductor hallucis-Ankle 3.9 ms Popliteal fossa 15.0 ms 3.1 mV Ankle-Popliteal fossa 11.1 ms 440 mm 40 m/s F-Wave Studies Nerve M-Latency F-Latency Peroneal.R 14.6 53.0 Tibial.R 15.0 57.3 Sensory Nerve Conduction: Nerve and Site Onset Latency Peak Latency Amplitude Segment Latency Difference Distance Conduction Velocity Sural.R Lower leg 2.9 ms 3.7 ms 12 mV Ankle-Lower leg 2.9 ms 140 mm 48 m/s Needle EMG Examination: Insertional Spontaneous Activity Volitional MUAPs Muscle Insertional Fibs +Wave Fasc Duration Amplitude Poly Pattern Effort Tibialis anterior.R Normal None None None Normal Normal None Normal Max. Gastrocnemius (Medial head).R Normal None None None Normal Normal None Normal Max. Vastus medialis.R Normal None None None Normal Normal None Normal Max. Semimembranosus.R Normal None None None Normal Normal None Normal Max. Gluteus medius.R Normal None None None Normal Normal None Normal Max. Summary of findings: 1. Sensory studies of the right sural nerve showed normal findings. 2. Motor studies of the right peroneal and tibial nerves showed normal findings. F-wave latencies were normal. 3. Electromyography of the right lower limb was done using a disposable concentric needle. There was no abnormal spontaneous activity. All muscles tested showed normal MUAP morphologies and recruitment patterns. Conclusions: This is a normal electrodiagnostic study. There is no electrophysiologic evidence of large-fiber peripheral neuropathy, nerve entrapment or denervation in the right lower limb. Melody Benavidez M.D. Performing Organization Address City/State/Zipcode Phone Number [facility] AAA and Runoff (04/07/2018 2:43 PM LOAN PROCESSING SUPERVISOR) Narrative Performed At Addendum Begins [facility] REPORT STATUS:A Addendum: I agree with the previously described non vascular findings. Signed: Angel Payne MD Report Verified Date/Time:04/07/2018 16:54:33 Reading Location: [facility] P048 Angio Body Reading Room Addendum Ends FINAL REPORT CT angiography of the abdominal aorta and pelvic arteries, 07 April 2018 INDICATION: This is a 68 year old male with a diagnosis of peripheral vascular disease presents for assessment. TThis study is performed in an attempt to avoid an invasive procedure. TECHNIQUE: Spiral acquisition before and during intravenous contrast administration using a Siemens multidetector CT scanner. Images were obtained before and during the dynamic passage of intravenous contrast material.Multi-planar 3-D volume-rendering reconstruction was performed using an independent workstation interactively by the interpreting physician as well as the 3-D specialist for optimal visualisation of the abdominal aorta, pelvic arteries, and its proximal branches. Please refer to the contrast sheet scanned in the RIS system for the amount and route of contrast given. This exam was performed according to our departmental dose-optimisation programme, which includes automated exposure control, adjustment of the mA and/or kV according to patient size and/or use of iterative reconstruction technique. Dose modulation, iterative reconstruction, and/or weight based adjustment of the mA/kV was utilized to reduce the radiation dose to as low as reasonably achievable. FINDINGS: VASCULAR: Pacing leads identified in the right-sided cardiac chambers, incompletely assessed. There is likely a degree of left and right atrial prominence. Coronary artery calcification is seen in all three distal coronary arteries. The abdominal aorta is remarkable for scattered calcific and noncalcific atherosclerosis, more so in the infrarenal abdominal aorta. There is no evidence of acute aortic pathology, specifically, there is no dissection, intramural hematoma, or contained rupture. Quantitative dimensions of the abdominal aorta are as follows: 2.0 cm at the mesenteric segment; 1.8 cm at the renal segment; and 1.4 cm at the aortic bifurcation. The coeliac axis is widely patent. The SMA is widely patent. The JESSY is patent. Single left and right renal arteries are seen with minimal nonobstructive atherosclerosis identified. Single left and right renal veins are seen draining normally into the IVC. The left common iliac artery and calcification present and is not filled by contrast indicating occlusion, extending through the left external iliac artery and much of the left common femoral artery. Acuity of this finding cannot be commented upon. There is likely occlusion seen in the left internal iliac artery as well. In the right, at the takeoff of the right common iliac artery, image 94, substantial calcification is present. The minimum luminal diameter is estimated to be approximately 2.9 x 3.7 mm that may suggest mild to moderate lesion. Hemodynamic significance cannot be commented upon. Remainder of the right common iliac artery has vascular stent present with no in-stent stenosis identified extending into the mid right external iliac artery. Remainder of the right external iliac artery and right common femoral artery is widely patent. A femoral to femoral bypass graft is identified and this graft is widely patent with no anastomotic stenosis. The left SFA has eccentric calcific and noncalcific atherosclerosis identified. Representing mild diffuse disease, with no obstructive lesion identified. The left profunda system is unremarkable. The left popliteal artery is also unremarkable with minimal nonobstructive calcification identified. In the left lower extremity, the left tibioperoneal trunk is patent with no obstructive lesion identified. The left anterior tibial artery is patent but is a small calibre vessel. The left peroneal artery is a small calibre vessel. The left posterior tibial artery is widely patent and the plantar arch is well seen distally. In the right, the right SFA has scattered nonobstructive calcific and noncalcific atherosclerosis proximally and no stenosis is appreciated. The right profunda system is unremarkable. The right popliteal artery is also widely patent. The right tibioperoneal trunk is widely patent. The right anterior tibial artery is patent though become a small calibre vessel distally. The right peroneal artery is a tiny calibre vessel. The right posterior tibial artery is dominant vessel and is widely patent and plantar arch is seen distally. NON-VASCULAR: The lung bases are unremarkable. Some dependent changes are seen in the lung bases. No pleural effusions identified. In the abdomen, the liver and spleen appears unremarkable. The liver edge is smooth. Fatty infiltration of the liver is identified with precontrast Hounsfield unit less than 40. Patient is post cholecystectomy. The pancreas appears unremarkable. No acute renal pathology is seen and no hydronephrosis or perirenal fluid collections identified. A small cyst is identified anterior aspect of the left kidney, that is too small to characterise. Nonobstructive renal stone is identified in the left kidney, image 51 measure 2 to 3 mm in diameter. The right adrenal gland is unremarkable. A less than 1 cm nodule is identified in the left adrenal gland, at image 26, a nonspecific findings due to its small size. Bowel is not well assessed by CT angiography as enteric contrast is not given. No obvious bowel dilation is identified. The appendix appears unremarkable. The graft no free air free fluid seen in the abdomen and pelvis. The prostate gland has punctate calcification identified. The bladder appears unremarkable. Inflammatory changes are seen in both groins, and surgical clips are identified, likely reflect prior surgery. No significant retroperitoneal adenopathy is identified. No free air free fluid is seen abdomen and pelvis. Small lymph nodes with fatty hilum seen in both groins, considered nonspecific in nature. In the bony windows, no acute bony pathology is seen. CONCLUSIONS: 1. The abdominal aorta is normal in course, calibre and contour. Mild atherosclerosis identified. No ectasia or aneurysmal dilation is seen.There is no evidence of acute aortic pathology, specifically, there is no dissection, intramural hematoma, or contained rupture. Quantitative dimension of the abdominal aorta are as noted. 2.The left common iliac and the left external iliac and much of the left common femoral artery is occluded, as a result a femoral to femoral bypass graft is placed and is widely patent with no anastomotic stenosis identified. There is calcification seen at the ostium of the right common iliac artery, at image 94, with substantial calcification identified, with minimum luminal diameter of approximately 3 x 4 mm that may suggest mild to moderate lesion. Haemodynamic significance is difficult to commented upon. A stent is identified in remainder of the right common iliac artery extending into the right external iliac artery with no in-stent stenosis identified. Remainder of the right pelvic arteries are unremarkable. 3.The SFA, profunda, and the popliteal arteries, bilaterally, are patent with minimal atherosclerosis identified and no obstructive lesion is seen. 4.Details of the runoff vessels as described above. 5.Other findings as described above. Hepatic steatosis. 6.An addendum will be dictated regarding the non-vascular findings by the Contract Manager Radiologist. Signed: Steve Musa MD Report Verified Date/Time:04/07/2018 15:32:19 Reading Location: [place] [address] Cardiology MRI Procedure Note Interface, External Ris In - 04/08/2018 10:27 PM LOAN PROCESSING SUPERVISOR Addendum Begins REPORT STATUS:A Addendum: I agree with the previously described non vascular findings. Signed: Angel Payne MD Report Verified Date/Time: 04/07/2018 16:54:33 Reading Location: [facility] P048 Angio Body Reading Room Addendum Ends FINAL REPORT CT angiography of the abdominal aorta and pelvic arteries, 07 April 2018 INDICATION: This is a 68 year old male with a diagnosis of peripheral vascular disease presents for assessment. TThis study is performed in an attempt to avoid an invasive procedure. TECHNIQUE: Spiral acquisition before and during intravenous contrast administration using a Siemens multidetector CT scanner. Images were obtained before and during the dynamic passage of intravenous contrast material. Multi-planar 3-D volume-rendering reconstruction was performed using an independent workstation interactively by the interpreting physician as well as the 3-D specialist for optimal visualisation of the abdominal aorta, pelvic arteries, and its proximal branches. Please refer to the contrast sheet scanned in the RIS system for the amount and route of contrast given. This exam was performed according to our departmental dose-optimisation programme, which includes automated exposure control, adjustment of the mA and/or kV according to patient size and/or use of iterative reconstruction technique. Dose modulation, iterative reconstruction, and/or weight based adjustment of the mA/kV was utilized to reduce the radiation dose to as low as reasonably achievable. FINDINGS: VASCULAR: Pacing leads identified in the right-sided cardiac chambers, incompletely assessed. There is likely a degree of left and right atrial prominence. Coronary artery calcification is seen in all three distal coronary arteries. The abdominal aorta is remarkable for scattered calcific and noncalcific atherosclerosis, more so in the infrarenal abdominal aorta. There is no evidence of acute aortic pathology, specifically, there is no dissection, intramural hematoma, or contained rupture. Quantitative dimensions of the abdominal aorta are as follows: 2.0 cm at the mesenteric segment; 1.8 cm at the renal segment; and 1.4 cm at the aortic bifurcation. The coeliac axis is widely patent. The SMA is widely patent. The JESSY is patent. Single left and right renal arteries are seen with minimal nonobstructive atherosclerosis identified. Single left and right renal veins are seen draining normally into the IVC. The left common iliac artery and calcification present and is not filled by contrast indicating occlusion, extending through the left external iliac artery and much of the left common femoral artery. Acuity of this finding cannot be commented upon. There is likely occlusion seen in the left internal iliac artery as well. In the right, at the takeoff of the right common iliac artery, image 94, substantial calcification is present. The minimum luminal diameter is estimated to be approximately 2.9 x 3.7 mm that may suggest mild to moderate lesion. Hemodynamic significance cannot be commented upon. Remainder of the right common iliac artery has vascular stent present with no in-stent stenosis identified extending into the mid right external iliac artery. Remainder of the right external iliac artery and right common femoral artery is widely patent. A femoral to femoral bypass graft is identified and this graft is widely patent with no anastomotic stenosis. The left SFA has eccentric calcific and noncalcific atherosclerosis identified. Representing mild diffuse disease, with no obstructive lesion identified. The left profunda system is unremarkable. The left popliteal artery is also unremarkable with minimal nonobstructive calcification identified. In the left lower extremity, the left tibioperoneal trunk is patent with no obstructive lesion identified. The left anterior tibial artery is patent but is a small calibre vessel. The left peroneal artery is a small calibre vessel. The left posterior tibial artery is widely patent and the plantar arch is well seen distally. In the right, the right SFA has scattered nonobstructive calcific and noncalcific atherosclerosis proximally and no stenosis is appreciated. The right profunda system is unremarkable. The right popliteal artery is also widely patent. The right tibioperoneal trunk is widely patent. The right anterior tibial artery is patent though become a small calibre vessel distally. The right peroneal artery is a tiny calibre vessel. The right posterior tibial artery is dominant vessel and is widely patent and plantar arch is seen distally. NON-VASCULAR: The lung bases are unremarkable. Some dependent changes are seen in the lung bases. No pleural effusions identified. In the abdomen, the liver and spleen appears unremarkable. The liver edge is smooth. Fatty infiltration of the liver is identified with precontrast Hounsfield unit less than 40. Patient is post cholecystectomy. The pancreas appears unremarkable. No acute renal pathology is seen and no hydronephrosis or perirenal fluid collections identified. A small cyst is identified anterior aspect of the left kidney, that is too small to characterise. Nonobstructive renal stone is identified in the left kidney, image 51 measure 2 to 3 mm in diameter. The right adrenal gland is unremarkable. A less than 1 cm nodule is identified in the left adrenal gland, at image 26, a nonspecific findings due to its small size. Bowel is not well assessed by CT angiography as enteric contrast is not given. No obvious bowel dilation is identified. The appendix appears unremarkable. The graft no free air free fluid seen in the abdomen and pelvis. The prostate gland has punctate calcification identified. The bladder appears unremarkable. Inflammatory changes are seen in both groins, and surgical clips are identified, likely reflect prior surgery. No significant retroperitoneal adenopathy is identified. No free air free fluid is seen abdomen and pelvis. Small lymph nodes with fatty hilum seen in both groins, considered nonspecific in nature. In the bony windows, no acute bony pathology is seen. CONCLUSIONS: 1. The abdominal aorta is normal in course, calibre and contour. Mild atherosclerosis identified. No ectasia or aneurysmal dilation is seen. There is no evidence of acute aortic pathology, specifically, there is no dissection, intramural hematoma, or contained rupture. Quantitative dimension of the abdominal aorta are as noted. 2. The left common iliac and the left external iliac and much of the left common femoral artery is occluded, as a result a femoral to femoral bypass graft is placed and is widely patent with no anastomotic stenosis identified. There is calcification seen at the ostium of the right common iliac artery, at image 94, with substantial calcification identified, with minimum luminal diameter of approximately 3 x 4 mm that may suggest mild to moderate lesion. Haemodynamic significance is difficult to commented upon. A stent is identified in remainder of the right common iliac artery extending into the right external iliac artery with no in-stent stenosis identified. Remainder of the right pelvic arteries are unremarkable. 3. The SFA, profunda, and the popliteal arteries, bilaterally, are patent with minimal atherosclerosis identified and no obstructive lesion is seen. 4. Details of the runoff vessels as described above. 5. Other findings as described above. Hepatic steatosis. 6. An addendum will be dictated regarding the non-vascular findings by the Contract Manager Radiologist. Signed: Steve Musa MD Report Verified Date/Time: 04/07/2018 15:32:19 Reading Location: [place] [address] Cardiology MRI Performing Organization Address City/State/Zipcode Phone Number [employer] RIS Venous doppler leg, right (04/07/2018 1:52 PM LOAN PROCESSING SUPERVISOR) Ejection Fraction [facility]ART[facility] CPACS Impressions Performed At Right Impression [facility] CPACS 1. There is no deep venous obstruction in the common femoral, profunda femoral, femoral, popliteal, posterior tibial or peroneal veins. 2. There is no superficial venous obstruction in the great saphenous vein. Left Impression not ordered. Conclusions Summary Venous duplex imaging and compression of the right lower extremity was performed. The veins were adequately visualized. The right venous system was patent and compressible with no evidence of thrombus. The venous Doppler waveforms were phasic with respiration . Signature Velocities are measured in cm/s ; Diameters are measured in cm Narrative Performed At PV LAB - Lower Extremities DVT Study [facility]ART[facility] Demographics Patient Name Tyron PENA of Study 04/07/2018 [id number] Age 68 Visit Number [id number] GenderMale Accession Number [id number] Date of 1950 [facility] Number [id number] Physician SonographerGkolton Cruz.Capri Ramírez RVT, ARS Physician Procedure Type of Study: Veins: Lower Extremities DVT Study, VENOUS DOPPLER LEG, RIGHT. Indications for Study:Leg pain . Patient Status:Routine. Study Location:Vascular Lab. Technical Quality:Adequate visualization. Risk Factors History of Disease + + + + !Diagnosis !Date!Comments ! + + + + !History/Risk!03/12/2017!Stroke, Current Smoker, PAD, HTN, HLD, CAD, ! 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 + + + + Procedure Note Interface, External Ris In - 04/07/2018 4:03 PM LOAN PROCESSING SUPERVISOR PV LAB - Lower Extremities DVT Study Demographics Patient Name MAMI PENA Date of Study 04/07/2018 Age 68 Visit Number [id number] Gender Male Accession Number [id number] Date of 1950 Referring Christin Ferraro Room Number 1155 Physician Tax Professional Jimmy Cruz. Interpreting Shivani Ramírez RVT, ARDMS Physician Procedure Type of Study: Veins: Lower Extremities DVT Study, VENOUS DOPPLER LEG, RIGHT. Indications for Study:Leg pain . Patient Status:Routine. Study Location:Vascular Lab. Technical Quality:Adequate visualization. Risk Factors History of Disease + + + + !Diagnosis !Date !Comments ! + + + + !History/Risk !03/12/2017!Stroke, Current Smoker, PAD, HTN, HLD, CAD, ! !Factors: ! !COPD, PA, Pacemaker, Fem-fem Bypass (2016) ! + + + + Impressions Right Impression 1. There is no deep venous obstruction in the common femoral, profunda femoral, femoral, popliteal, posterior tibial or peroneal veins. 2. There is no superficial venous obstruction in the great saphenous vein. Left Impression not ordered. Conclusions Summary Venous duplex imaging and compression of the right lower extremity was performed. The veins were adequately visualized. The right venous system was patent and compressible with no evidence of thrombus. The venous Doppler waveforms were phasic with respiration . Signature Velocities are measured in cm/s ; Diameters are measured in cm Performing Organization Address [place] [place] [facility] ECG 12 lead (04/07/2018 11:07 AM LOAN PROCESSING SUPERVISOR)Only the most recent of4 resultswithin the time period is included. Narrative Performed At Ventricular Rate 60 BPM Banjo Atrial Rate 60 BPM P-R Interval 164 ms QRS Duration 90 ms Q-T Interval 396 ms QTC Calculation(Bazett) 396 ms P [place] -12 degrees R [place]fane 6 degrees T [place]ane 60 degrees Electronic atrial pacemaker When compared with ECG of 01-DEC-2017 11:15, No significant change was found Confirmed by Tyler Hickman ([id number]) on 04/07/2018 8:25:38 PM Procedure Note Interface, External Ris In - 04/07/2018 8:25 PM LOAN PROCESSING SUPERVISOR Ventricular Rate 60 BPM Atrial Rate 60 BPM P-R Interval 164 ms QRS Duration 90 ms Q-T Interval 396 ms QTC Calculation(Bazett) 396 ms P [place] -12 degrees R [place] 6 degrees T [place] 60 degrees Electronic atrial pacemaker When compared with ECG of 01-DEC-2017 11:15, No significant change was found Confirmed by Tyler Hickman ([id number]) on 04/07/2018 8:25:38 PM Performing Organization Address City/State/Zipcode Phone Number [facility] Troponin I (04/07/2018 11:05 AM LOAN PROCESSING SUPERVISOR)Only the most recent of5 resultswithin the time period is included. Troponin I <0.01 0.00 - 0.03 ng/mL [facility] Specimen Blood Narrative Performed At Troponin I (TnI) levels must be interpreted [facility] in the context of the presenting symptoms [...] tachyarrhythmia. Performing Organization Address City/State/Zipcode Phone Number [facility] [address] [place] [address] CENTER ECHOCARDIOGRAM REPORT - SCAN (04/07/2018 9:50 AM LOAN PROCESSING SUPERVISOR) Narrative Performed At 2D Echo W/Doppler(CW/PW/Color) (04/06/2018 9:45 PM LOAN PROCESSING SUPERVISOR) Ejection Fraction [facility] Narrative Performed At Transthoracic Echocardiography Report (TTE) [facility] Patient Name JEAN, Date of Study 04/06/2018 MAMI [id number] GenderMale Visit Number [id number] [id number] Room Number 1155 Number Date of Birth1950Referring Physician Christin Ferraro Age68 year(s)Tax Professional Krista Villatoro RDCS, RVT Connie Webb MD Physician Procedure Type of Study TTE procedure:2DECHO W DOPPLER(CW/PW/COLOR) (Routine) Indications:Acute Chest Pain/ Suspected CAD. Clinical History COPD, CAD, CVA, HTN, HLD,PA, PAD, PACEMAKER HGB 11.8 HCT 38.8 % Height: 69 inches Weight: 70.76 kg (156 lbs) BSA: 1.86 m^2 BMI: 23.04 kg/m^2 HR: 68 bpm BP: 173/71 mmHg Summary Normal left ventricular chamber size. Normal wall thickness. Normal overall left ventricular systolic function. No apparent segmental wall motion abnormalities. Estimated LVEF by qualitative assessment is normal (55-60%) . Grade 1 diastolic dysfunction (impaired relaxation and low-normal LA pressure). Estimated peak systolic PA pressure is 35-40 mmHg . No pericardial effusion is visualized. Signature Findings Left Ventricle Normal left ventricular chamber size. Normal wall th ickness. Normal overall left ventricular systolic fu nction. No apparent segmental wall motion ab normalities. Es timated LVEF by qualitative assessment is normal (5 5-60%) . Gr klaus 1 diastolic dysfunction (impaired relaxation an d low-normal LA pressure). Left AtriumLA size is normal . Right VentricleThe right ventricular chamber size and systolic fu nction are within normal limits. RV pacing wire is visualized . Right Atrium RA size is normal. Aortic Valve Normal AoV structure. Mitral Valve Normal MV structure. Tricuspid ValveTV structure is normal. Es timated peak systolic PA pressure is 35-40 mmHg . Mi ld tricuspid regurgitation. Pulmonic Valve PV is not well visualized; function appears normal by Doppler visualized. AortaAortic root size (SInus of Valsalva diameter) is no rmal . PericardiumNo pericardial effusion is visualized. IVC/SVC/PA/PV/PleuralThe estimated RA pressure by IVC dynamics 5-10mmHg . Chambers/Structures Left Atrium LA Dimension: 3.74 cm Left Ventricle LVIDd: 4.59 cm LVIDs: 2.45 cm LV Septum Diastolic: 1.01 cm LV PW Diastolic: 0.82 cm LV FS: 46.6 % LVOT Diameter: 1.99 cm Aorta Ao Root S of Nusrat.: 2.85 cm Doppler/Quantitative Measurements LVOT Peak Velocity: 1.45 m/s Peak Gradient: 8.43 mmHg Mean Velocity: 0.88 m/s Mean Gradient: 3.65 mmHg LVOT Diameter: 1.99 cmLVOT VTI: 25.74 cm LVOT Area: 3.11 cm^2LVOT SV:80.02 ml LVOT CO: 5.44 l/min LVOT CI: 2.92 l/min/m^2 Procedure Note Interface, External Ris In - 04/07/2018 9:03 AM LOAN PROCESSING SUPERVISOR Transthoracic Echocardiography Report (TTE) Demographics Patient Name JEAN, Date of Study 04/06/2018 MAMI Gender Male Visit Number [id number] Race Room Number 1155 Number Date of 1950 Referring Physician Christin Lam S Age 68 year(s) Tax Professional Krista Villatoro RDCS, RVT Interpreting Marshall Webb MD Physician Procedure Type of Study TTE procedure:2DECHO W DOPPLER(CW/PW/COLOR) (Routine) Indications:Acute Chest Pain/ Suspected CAD. Clinical History COPD, CAD, CVA, HTN, HLD,PA, PAD, PACEMAKER HGB 11.8 HCT 38.8 % Height: 69 inches Weight: 70.76 kg (156 lbs) BSA: 1.86 m^2 BMI: 23.04 kg/m^2 HR: 68 bpm BP: 173/71 mmHg Summary Normal left ventricular chamber size. Normal wall thickness. Normal overall left ventricular systolic function. No apparent segmental wall motion abnormalities. Estimated LVEF by qualitative assessment is normal (55-60%) . Grade 1 diastolic dysfunction (impaired relaxation and low-normal LA pressure). Estimated peak systolic PA pressure is 35-40 mmHg . No pericardial effusion is visualized. Signature Findings Left Ventricle Normal left ventricular chamber size. Normal wall thickness. Normal overall left ventricular systolic function. No apparent segmental wall motion abnormalities. Estimated LVEF by qualitative assessment is normal (55-60%) . Grade 1 diastolic dysfunction (impaired relaxation and low-normal LA pressure). Left Atrium LA size is normal . Right Ventricle The right ventricular chamber size and systolic function are within normal limits. RV pacing wire is visualized . Right Atrium RA size is normal. Aortic Valve Normal AoV structure. Mitral Valve Normal MV structure. Tricuspid Valve TV structure is normal. Estimated peak systolic PA pressure is 35-40 mmHg . Mild tricuspid regurgitation. Pulmonic Valve PV is not well visualized; function appears normal by Doppler visualized. Aorta Aortic root size (SInus of Valsalva diameter) is normal . Pericardium No pericardial effusion is visualized. IVC/SVC/PA/PV/Pleural The estimated RA pressure by IVC dynamics 5-10mmHg . Chambers/Structures Left Atrium LA Dimension: 3.74 cm Left Ventricle LVIDd: 4.59 cm LVIDs: 2.45 cm LV Septum Diastolic: 1.01 cm LV PW Diastolic: 0.82 cm LV FS: 46.6 % LVOT Diameter: 1.99 cm Aorta Ao Root S of Nusrat.: 2.85 cm Doppler/Quantitative Measurements LVOT Peak Velocity: 1.45 m/s Peak Gradient: 8.43 mmHg Mean Velocity: 0.88 m/s Mean Gradient: 3.65 mmHg LVOT Diameter: 1.99 cm LVOT VTI: 25.74 cm LVOT Area: 3.11 cm^2 LVOT SV:80.02 ml LVOT CO: 5.44 l/min LVOT CI: 2.92 l/min/m^2 Performing Organization Address City/State/Zipcode Phone Number [facility] [facility] MKCKESSON CPACS Arterial doppler legs bilateral (04/06/2018 7:30 PM LOAN PROCESSING SUPERVISOR) Ejection Fraction [facility] Impressions Performed At Right Impression [facility] 1. The common femoral, profunda femoral, superficial femoral, popliteal, posterior tibial and anterior tibial arteries are patent with mild diffuse plaque and triphasic/biphasic Doppler waveforms. 2. The peroneal artery is occluded. 3. The PT pressure is 150 mmHg with an COREY of 0.91, within normal range and the DP pressure is 139 mmHg with an COREY of 0.85, within mild obstruction range. 4. The great toe pressure is 84 mmHg with an abnormal TBI of 0.51. 5. The digits have adequate flow by PPG waveforms. Left Impression 1. The common femoral, profunda femoral, superficial femoral, popliteal, posterior tibial, peroneal and anterior tibial arteries are patent with mild diffuse plaque and triphasic/biphasic Doppler waveforms. 2. The PT pressure is 143 mmHg with an COREY of 0.87 and the DP pressure is 145 mmHg with an COREY of 0.88, within normal range. 3. The great toe pressure is 90 mmHg with an abnormal TBI of 0.55. 4. The digits have adequate flow by PPG waveforms. Conclusions Summary Arterial pressures and Doppler waveforms were performed bilaterally. Adequate Doppler waveforms were obtained. Doppler waveforms were triphasic and biphasic flow bilaterally. The right arterial system was patent with mild diffuse plaque, triphasic/biphasic Doppler waveforms signals and occlusion in the peroneal artery. The right COREY's were within normal to mild obstruction range. The left arterial system was patent with mild diffuse plaque and triphasic/biphasic Doppler waveforms signals. The left COREY's were within mild obstruction range. The toe pressure and TBI's were within abnormal range bilaterally. The digits had adequate flow by PPG waveforms bilaterally. The right femoral to left femoral bypass graft was patent with velocities ranging from: Proximal anastomosis: 108/11 cm/sec, Proximal bypass graft: 97/10 cm/sec, Mid bypass graft: 101/12 cm/sec, Distal bypass graft: 111/17 cm/sec, Distal anastomosis: 111/10 cm/sec. Signature Velocities are measured in cm/s ; Diameters are measured in cm LE Duplex Measurements Right Left + + + + + + + + + + !Location ! !PSV !EDV !Waveform! !PSV !EDV !Waveform! + + + + + + + + + + !Mid Common Femoral ! !140 !17.7!Triphasic ! !171 !15.7!Biphasic ! + + + + + + + + + + !Prox PFA ! !144 !15.7!Biphasic ! !67.6!9.04 !Biphasic ! + + + + + + + + + + !Prox SFA ! !128 !10.8!Triphasic ! !104 !14.1!Triphasic ! + + + + + + + + + + !Mid SFA ! !142 !18.7!Triphasic ! !115 !12.3!Triphasic ! + + + + + + + + + + !Dist SFA ! !131 !!Biphasic ! !70.4! !Biphasic ! + + + + + + + + + + !Prox Popliteal ! !58.5! !Biphasic ! !58.9! !Biphasic ! + + + + + + + + + + !Dist Popliteal ! !68! !Biphasic ! !57! !Biphasic ! + + + + + + + + + + !Prox RESEARCH AND DEVELOPMENT ENGINEER ! !86.4! !Biphasic ! !80.3! !Biphasic ! + + + + + + + + + + !Mid RESEARCH AND DEVELOPMENT ENGINEER ! !106 !!Biphasic ! !98.5! !Biphasic ! + + + + + + + + + + !Dist RESEARCH AND DEVELOPMENT ENGINEER ! !69.9! !Biphasic ! !76.8! !Biphasic ! + + + + + + + + + + !Prox ELPIDIO ! !62.7! !Biphasic ! !31.7! !Biphasic ! + + + + + + + + + + !Mid ELPIDIO ! !42.4! !Biphasic ! !39.3! !Biphasic ! + + + + + + + + + + !Dist ELPIDIO ! !! !Absent ! !27.1! !Biphasic ! + + + + + + + + + + !Prox Peroneal ! !! !Absent ! !50.7! !Biphasic ! + + + + + + + + + + !Mid Peroneal ! !! !Absent ! !38.1! !Biphasic ! + + + + + + + + + + !Dist Peroneal ! + + Narrative Performed At PV LAB - Lower Extremity Arterial Duplex [facility] Demographics Patient Name Tyron PENA of Study04/06/2018 [id number] Age68 Visit Number [id number] Gender Male Accession Number [id number] Date of Birth1950 [facility] [id number] Physician SonographAnalia Rios Interpreting Shivani Ramírez MD RVS Physician Isatu Ramon RVT Procedure Type of Study: Extremities Arteries: Lower Extremities Arterial Duplex, ARTERIAL DOPPLER LEGS, BILATERAL. Indications for Study:Leg pain . Patient Status:LORAINE. Study Location:Vascular Lab. Technical Quality:Adequate visualization. - Results were reported to:Dr. Carole Waller @ 19:45. Risk Factors History of Disease + + + + !Diagnosis !Date!Comments ! + + + + !History/Risk!03/12/2017!Stroke, Current Smoker, PAD, HTN, HLD, CAD, ! 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 + + + + Procedure Note Interface, External Ris In - 04/07/2018 4:04 PM LOAN PROCESSING SUPERVISOR PV LAB - Lower Extremity Arterial Duplex Demographics Patient Name MAMI PENA Date of Study 04/06/2018 Age 68 Visit Number [id number] Gender Male Accession Number [id number] Date of 1950 Kayla Ferraro Room Number 1155 Physician Tax Professional Sebastian Rios Interpreting Shivani Ramírez MD RVS Physician Isatu Ramon RVT Procedure Type of Study: Extremities Arteries: Lower Extremities Arterial Duplex, ARTERIAL DOPPLER LEGS, BILATERAL. Indications for Study:Leg pain . Patient Status:LORAINE. Study Location:Vascular Lab. Technical Quality:Adequate visualization. - Results were reported to:Dr. Carole Waller @ 19:45. Risk Factors History of Disease + + + + !Diagnosis !Date !Comments ! + + + + !History/Risk !03/12/2017!Stroke, Current Smoker, PAD, HTN, HLD, CAD, ! !Factors: ! !COPD, PA, Pacemaker, Fem-fem Bypass (2016) ! + + + + Impressions Right Impression 1. The common femoral, profunda femoral, superficial femoral, popliteal, posterior tibial and anterior tibial arteries are patent with mild diffuse plaque and triphasic/biphasic Doppler waveforms. 2. The peroneal artery is occluded. 3. The PT pressure is 150 mmHg with an COREY of 0.91, within normal range and the DP pressure is 139 mmHg with an COREY of 0.85, within mild obstruction range. 4. The great toe pressure is 84 mmHg with an abnormal TBI of 0.51. 5. The digits have adequate flow by PPG waveforms. Left Impression 1. The common femoral, profunda femoral, superficial femoral, popliteal, posterior tibial, peroneal and anterior tibial arteries are patent with mild diffuse plaque and triphasic/biphasic Doppler waveforms. 2. The PT pressure is 143 mmHg with an COREY of 0.87 and the DP pressure is 145 mmHg with an COREY of 0.88, within normal range. 3. The great toe pressure is 90 mmHg with an abnormal TBI of 0.55. 4. The digits have adequate flow by PPG waveforms. Conclusions Summary Arterial pressures and Doppler waveforms were performed bilaterally. Adequate Doppler waveforms were obtained. Doppler waveforms were triphasic and biphasic flow bilaterally. The right arterial system was patent with mild diffuse plaque, triphasic/biphasic Doppler waveforms signals and occlusion in the peroneal artery. The right COREY's were within normal to mild obstruction range. The left arterial system was patent with mild diffuse plaque and triphasic/biphasic Doppler waveforms signals. The left COREY's were within mild obstruction range. The toe pressure and TBI's were within abnormal range bilaterally. The digits had adequate flow by PPG waveforms bilaterally. The right femoral to left femoral bypass graft was patent with velocities ranging from: Proximal anastomosis: 108/11 cm/sec, Proximal bypass graft: 97/10 cm/sec, Mid bypass graft: 101/12 cm/sec, Distal bypass graft: 111/17 cm/sec, Distal anastomosis: 111/10 cm/sec. Signature Velocities are measured in cm/s ; Diameters are measured in cm LE Duplex Measurements Right Left + + + ------+ + + + +-------- + + !Location ! !PSV !EDV !Waveform ! !PSV !EDV !Waveform ! + + + ------+ + + + +-------- + + !Mid Common Femoral ! !140 !17.7 !Triphasic ! !171 !15.7 !Biphasic ! + + + ------+ + + + +-------- + + !Prox PFA ! !144 !15.7 !Biphasic ! !67.6 !9.04 !Biphasic ! + + + ------+ + + + +-------- + + !Prox SFA ! !128 !10.8 !Triphasic ! !104 !14.1 !Triphasic ! + + + ------+ + + + +-------- + + !Mid SFA ! !142 !18.7 !Triphasic ! !115 !12.3 !Triphasic ! + + + ------+ + + + +-------- + + !Dist SFA ! !131 ! !Biphasic ! !70.4 ! !Biphasic ! + + + ------+ + + + +-------- + + !Prox Popliteal ! !58.5 ! !Biphasic ! !58.9 ! !Biphasic ! + + + ------+ + + + +-------- + + !Dist Popliteal ! !68 ! !Biphasic ! !57 ! !Biphasic ! + + + ------+ + + + +-------- + + !Prox RESEARCH AND DEVELOPMENT ENGINEER ! !86.4 ! !Biphasic ! !80.3 ! !Biphasic ! + + + ------+ + + + +-------- + + !Mid RESEARCH AND DEVELOPMENT ENGINEER ! !106 ! !Biphasic ! !98.5 ! !Biphasic ! + + + ------+ + + + +-------- + + !Dist RESEARCH AND DEVELOPMENT ENGINEER ! !69.9 ! !Biphasic ! !76.8 ! !Biphasic ! + + + ------+ + + + +-------- + + !Prox ELPIDIO ! !62.7 ! !Biphasic ! !31.7 ! !Biphasic ! + + + ------+ + + + +-------- + + !Mid ELPIDIO ! !42.4 ! !Biphasic ! !39.3 ! !Biphasic ! + + + ------+ + + + +-------- + + !Dist ELPIDIO ! ! ! !Absent ! !27.1 ! !Biphasic ! + + + ------+ + + + +-------- + + !Prox Peroneal ! ! ! !Absent ! !50.7 ! !Biphasic ! + + + ------+ + + + +-------- + + !Mid Peroneal ! ! ! !Absent ! !38.1 ! !Biphasic ! + + + ------+ + + + +-------- + + !Dist Peroneal ! + + Performing Organization Address City/State/Zipcode Phone Number [facility] MKCKESSON CPACS PT/aPTT (04/06/2018 3:47 PM LOAN PROCESSING SUPERVISOR) Protime 13.8 11.7 - 14.[address] [facility] INR 1.1 <=5.9 [facility] PTT 31.6 22.5 - 36.0 seconds [facility] Specimen Blood - Arm, Right Narrative Performed At RECOMMENDED COUMADIN/WARFARIN INR THERAPY [facility] RANGES STANDARD DOSE: 2.0 - 3.0 Includes: PROPHYLAXIS for venous thrombosis, systemic embolization; TREATMENT for venous thrombosis and/or pulmonary embolus. HIGH RISK: Target INR is 2.5-3.5 for patients with mechanical heart valves. Performing Organization Address City/State/Zipcode Phone Number [facility] [address] [place] [address] [place] ARRYTHMIA IMPLANT REPORT - SCAN (02/03/2018 2:53 PM LOAN PROCESSING SUPERVISOR)Only the most recent of3 resultswithin the time period is included. Narrative Performed At TSH/Free T4 If Indicated (12/02/2017 3:11 AM CDT) TSH 3.16 0.35 - 4.94 uIU/mL [facility] Specimen Blood Performing Organization Address City/[facility] Phone Number [place] [phone] [place] [address] [place] Carotid doppler bilateral (12/01/2017 10:12 PM CDT) Ejection Fraction [facility] CPACS Impressions Performed At Right Impression [facility] CPACS 1. There [...] Additional Measurements:ICAPSV/CCAPSV 1.35.ICAEDV/CCAEDV 1.24. Narrative Performed At PV LAB - Carotid Duplex Study [facility] Demographics Patient Name JEAN,Date of Study 12/01/2017 MAMI [id number] Age 67 Visit Number [id number] GenderMale Accession Number [id number] Date of 1950 [facility] Eze Room Number 7515 PhysicianMichael SonographSarah Hayes InterpretingJ. Jose Perez MD, Physician KETTY Procedure Type of Study: Cerebral: Carotid, CAROTID DOPPLER, BILATERAL. Indications for Study:Stroke. Patient Status:Routine. Study Location:Portable. Technical Quality:Adequate visualization. Risk Factors History of Disease + + + + !Diagnosis !Date!Comments ! + + + + !History/Risk!03/12/2017!Stroke, Current Smoker, PAD, HTN, HLD, CAD, ! 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 + + + + Procedure Note Interface, External Ris In - 12/02/2017 6:29 AM CDT PV [facility] - Carotid Duplex Study Demographics Patient Name JEAN, Date of Study 12/01/2017 MAMI Age 67 Visit Number [id number] Gender Male Accession Number [id number] Date of 1950 Referring Louise Loo Room Number 7515 Physician Jose Tax Professional Noel Hayes Interpreting Cristobal Perez MD, Physician RPTUNG Procedure Type of Study: Cerebral: Carotid, CAROTID DOPPLER, BILATERAL. Indications for Study:Stroke. Patient Status:Routine. Study Location:Portable. Technical Quality:Adequate visualization. Risk Factors History of Disease + + + + !Diagnosis !Date !Comments ! + + + + !History/Risk !03/12/2017!Stroke, Current Smoker, PAD, HTN, HLD, CAD, ! !Factors: ! !COPD, PA, Pacemaker, Fem-fem Bypass (2016) ! + + [...] 1.24. Performing Organization Address City/State/Zipcode Phone Number [facility] ECHOCARDIOGRAM REPORT - SCAN (12/01/2017 6:50 PM CDT) Narrative Performed At CT brain without IV contrast portable (12/01/2017 6:30 PM CDT) Narrative Performed At FINAL REPORT [facility] CT head without contrast 12/01/2017 6:40 PM [...] MD Report Verified Date/Time:12/01/2017 18:41:06 Reading Location: [facility] Radiology Reading Room Procedure Note Interface, External [...] Report Verified Date/Time: 12/01/2017 18:41:06 Reading Location: [facility] Radiology Reading Room Performing Organization Address City/State/Zipcode Phone Number RIS Potassium (12/01/2017 3:53 PM CDT) Potassium 3.7 3.5 - 5.1 meq/L [facility] Specimen Blood Narrative Performed At Check Serum Potassium level 2 hours after [facility] oral potassium replacement completed or 30 min after intravenous potassium replacement. Performing Organization Address City/State/[facility] [place] [address] CENTER Pacemaker Check (12/01/2017 10:56 AM CDT) Narrative Performed At Sakshi Britt RN 12/01/2017 10:56 AM Performed pacemaker interrogation per order.Preliminary report placed under cardiac studies in chart. 1. Normal device function 2. No events SAKSHI BRITT RN 12/01/2017 10:56 AM [id number] Transthoracic 2D echo w/ doppler (cw/pw/color) (12/01/2017 9:37 AM CDT) Ejection Fraction [facility] [employer]ON [facility] Narrative Performed At Transthoracic Echocardiography Report (TTE) [facility] TeleCIS WirelessESSON [facility] Demographics Patient Name JEAN, Date of Study 12/01/2017 MAMI [id number] GenderMale Visit Number [id number] Room Number [id number] Number Date of Birth1950Referring Physician Jostin Sevilla MD Age67 year(s)Tax Professional Roxane Ragsdale [facility] AnalystAlex [place] InterpretingStPhysician TJ Tracy Procedure Type of Study TTE procedure:2DECHO W DOPPLER(CW/PW/COLOR) (Routine) Indications:Suspected cardiac source of emboli. Clinical History HGB 11.3 HCT 35.2 % DEFINITY 4ML ANGINA, COPD, CAD, CVA (03/2017), DEMENTIA, SHI, EMPHYSEMA, HTN, HLD, PA PPM (2008), SOB, SMOKER, TIA, PCI (01/20/2016), [...] Study 12/01/2017 MAMI Gender Male Visit Number [id number] Race Room Number 7515 Number Date of 1950 Referring Physician Jostin Sevilla MD Age 67 year(s) Tax Professional Roxane Jn [facility] Brake Rider Edward Salvador Interpreting Physician TJ Gonzalez Procedure Type of Study TTE procedure:2DECHO W DOPPLER(CW/PW/COLOR) (Routine) Indications:Suspected cardiac source of emboli. Clinical History HGB 11.3 HCT 35.2 % DEFINITY 4ML ANGINA, COPD, CAD, CVA (03/2017), DEMENTIA, SHI, EMPHYSEMA, HTN, HLD, PA PPM (2008), SOB, SMOKER, TIA, PCI (01/20/2016), [...] City/State/Zipcode Phone Number [facility] (12/01/2017 8:14 AM CDT) Phosphorus 2.6Comment: Specimen slightly 2.3 - 4.7 mg/dL [facility] hemolyzed [facility] Specimen Blood Performing Organization Address [facility] Phone Number [address] [address] CENTER Hemoglobin A1c (12/01/2017 3:33 AM CDT)Only the most recent of2 resultswithin the time period is included. Hemoglobin A1C 6.0 4.3 - 6.1 % [facility] Specimen Blood Performing Organization Address [facility] Phone Number [address] [address] [place] Fasting lipid panel (12/01/2017 3:33 AM CDT) Triglycerides 119 mg/dL [facility] Cholesterol 144 mg/dL [facility] HDL 26 mg/dL [facility] LDL Calculated 94 mg/dL [facility] Specimen Blood Narrative Performed At [facility] Triglyceride Reference Range: Low Risk <150 [id number] High Risk 200-499 Very High Risk>=500 Cholesterol Reference Range: Low Risk <200 [id number] High Risk>240 HDL Cholesterol Reference Range: Low Risk >=60 High Risk <40 LDL Cholesterol Reference Range: Optimal<100 Near [id number] Very High >=190 Fasting Performing Organization Address [facility] Phone Number [address] [address] [phone] CENTER Vitamin B12 and Folate (11/30/2017 5:41 PM CDT) Vitamin B12 1,185 (H) 213 - 816 pg/mL [facility] Folate 2.3 (L) >=7.0 ng/mL [facility] Specimen Blood Performing Organization Address City/[facility] Phone Number [facility] [address] [place] [address] CENTER after 05/17/2017 Insurance Payer Benefit Plan / Group Subscriber ID Type Phone Address [employer] - UNITED MEDICARE HMO xxxxxxxxx MEDICARE [facility] MEDICAID MEDICAID [facility] xxxxxxxxx Medicaid Guarantor Name Account Type Relation to Date of Phone Billing Patient Address Mami Pena Personal/Family Self 1950 [address] (Home) [place] [address] Mami Pena Personal/Family Self 1950 [address] (Home) [place] [address] Advance Directives For more information, please contact:RADHA Navarro [id number] [place], [place] [phone] Code Status Date Activated Date Inactivated Comments Full Code 04/06/2018 5:09 PM This code status was determined by: Patient Full Code 11/30/2017 4:52 PM 12/02/2017 4:13 PM This code status was determined by: Patient Full Code 01/13/2016 11:29 AM 01/14/2016 8:29 PM This code status was determined by: Patient
--- OUTSIDE RECORDS SUMMARY | 2018-05-18 14:27 | XMS REPORT | Continuity of Care Document ---
:1950 Author Organization Interface Problems Problem Status Onset Classification Date Comments Source Date Reported CHEST PAIN Active [address] CVA Active [address] PRABHA BILLING Active [address] HTN Active Finding 05/16/[address] [facility] [address] [...] [facility] [place] CHEST PAIN, Active [facility] Medications Medication Details Route Status Patient [...] ABDOMEN AND PELVIS WITH CONTRAST 12/28 - [facility] lvis w IV is w - Medical contrast contrast CT This report was dictated by a [employer] Maker /Fellow. I have personally reviewed the images [...] Brain/Neck Exam: CTA HEAD AND NECK 12/28 [facility] Stroke Stroke /2018 - Medical perfusion [...] 1view EXAM: XR CHEST 1 VIEW 12/28 [facility] 1view DX DX /2017 - Medical This report was dictated by a [employer] Maker/Fellow. I have personally reviewed the images as [...] EXAM: CT BRAIN WITHOUT CONTRAST 12/28 - [facility] Stroke wo wo contrast /2017 - [facility] contrast CT Center CT DATE: 12/28/2017 [...] - [place] [facility] Urine Total Urine 05/16 [facility] Studies Protein Total /2017 [facility] [place] [facility] Urine 1.015 05/16 [facility]. Studies Specific /2017 [facility] [place] [facility] Urine Urine 05/16 [facility] Studies Nitrite Nitrite /2017 [facility] [place] [facility] Urine Urine 05/16 [facility] Studies Leukocyte Leukocyte /2017 [facility] Esterase Esterase [place] [facility] Urine Urine 05/16 [facility]. Studies Ketones Ketones /2017 [facility] [place] [facility] Urine Urine 05/16 [facility] Studies Glucose Glucose /2017 [facility] [place] [facility] Urine Color Urine 05/16 [facility]. Studies Color /2017 [facility] [place] [facility] Urine Blood Urine 05/16 [facility]. Studies Blood /2017 [facility] [place] [facility] Urine Urine 05/16 [facility] Studies Bilirubin Bilirubin /2017 [facility] [place] [facility] Urine Urine 05/16 [facility] Studies Appearance Appearance /2017 [facility] [place] [facility] Creatine 1.1 ng/ml 0.3 - 4.0 05/16 [facility] Studies Kinase MB /2017 [facility] [place] [facility] Creatine 61 IU/L 22 - 269 05/16 [facility] Studies Kinase /2017 [facility] [place] [facility] Troponin I null 05/16 [facility] Studies /2017 [facility] [place] [facility] Triglyceride 100 mg/dL 35 - 160 05/16 [facility] Studies s Level /2017 [facility] [place] [facility] LDL 44 05/16 [facility] Studies Cholesterol, /2017 [facility] Calculated [place] [facility] HDL 22 mg/dL 27 - 67 05/16 [facility] Studies Cholesterol /2018 [facility] [place] [facility] Cholesterol/ 3.91 05/16 [facility] Studies HDL Ratio /2017 [facility] [place] [facility] Cholesterol 86 mg/dL 05/16 [facility] Studies Level /2018 [facility] [place] [facility] White Blood 6.5 K/uL 4.3 - 10.9 05/15 [facility] Studies Count /2017 [facility] [place] [facility] Red Cell 17.3 % 12.1 - 05/15 [facility] Studies Distribution 15.2 /2017 [facility] Width [place] [facility] Red Blood 4.44 M/uL 4.33 - 05/15 [facility] Studies Count 5.43 /2017 [facility] [place] [facility] Platelet 161 K/uL 152 - 406 05/15 [facility] St[facility] Studies Count /2017 [facility] [place] [facility] Neutrophils 58.0 % 41.7 - 05/15 [facility] St. Studies % 73.7 /2017 [facility] [place] [facility] Monocytes % 7.4 % 3.3 - 12.3 05/15 [facility] St. Studies /2017 [facility] [place] [facility] Mean 9.4 fL 7.6 - 11.3 05/15 [facility] St. Studies Platelet /2017 [facility] Volume [place] [facility] Mean 88.3 fL 80 - 100 05/15 [facility] St. Studies Corpuscular /2017 [facility] Volume [place] [facility] Mean 32.6 g/dL 32.0 - 05/15 [facility] St. Studies Corpuscular 36.0 /2017 [facility] Hemoglobin [place] [facility] Mean 28.8 pg 27.0 - 05/15 [facility]. Studies Corpuscular 35.0 /2017 [facility] Hemoglobin [place] [facility] Lymphocytes 31.4 % 15.3 - 05/15 [facility] St. Studies % 44.8 /2017 [facility] [place] [facility] Hemoglobin 12.8 g/dL 13.6 - 05/15 [facility] St. Studies 17.9 /2017 [facility] [place] [facility] Hematocrit 39.2 % 39.6 - 05/15 [facility] St. Studies 49.0 /2017 [facility] [place] [facility] Eosinophils 1.8 % 0 - 4.4 05/15 [facility] St. Studies % /2017 [facility] [place] [facility] Basophils % 1.4 % 0 - 1.3 05/15 [facility] St. Studies /2017 [facility] [place] [facility] Absolute 3.8 K/uL 1.8 - 8.0 05/15 [facility] St. Studies Neutrophil /2017 [facility] [place] [facility] Absolute 0.5 K/uL 0.1 - 1.3 05/15 [facility] St. Studies Monocytes /2017 [facility] (CBC) [place] [facility] Absolute 2.0 K/uL 0.7 - 4.9 05/15 [facility] St. Studies Lymphocytes /2017 [facility] (CBC) [place] [facility] Absolute 0.1 K/uL 0 - 0.5 05/15 [facility] St. Studies Eosinophils /2017 [facility] (CBC) [place] [facility] Absolute 0.1 K/uL 0 - 0.5 05/15 [facility] St. Studies Basophils /2017 [facility] - (CBC) [place] [facility] Total 0.4 mg/dL 0.3 - 1.2 05/15 [facility] St. Studies Bilirubin /2017 [facility] Glucose 135 mg/dL 65 - 120 05/15 [facility]. Studies Level /2017 [facility] [place] [facility] Estimat null 90 05/15 [facility]. Studies Glomerular /2017 [facility] - Filtration [place] Rate Laboratory Creatinine 0.82 mg/dL 0.61 - 03 [facility] St. Studies 1.24 /2017 [facility] Calcium 8.9 mg/dL 8.5 - 10.5 05/15 [facility]. Studies Level /2017 [facility] [place] [facility] Blood Urea 12 mg/dL 6 - 20 05/15 [facility]. Studies Nitrogen /2017 [facility] Alkaline 116 IU/L 42 - 121 05/15 [facility]. Studies Phosphatase /2017 [facility] Sodium Level 134 mEq/L 135 - 145 05/15 [facility]. Studies /2017 [facility] Serum Total 6.6 g/dL 6.0 - 8.3 05/15 [facility]. Studies Protein /2017 [facility] Laboratory Potassium 3.7 mEq/L 3.6 - 5.0 05/15 [facility]. Studies Level /2017 [facility] Globulin 3.0 g/dL 2.3 - 3.5 05/15 [facility]. Studies /2018 [facility] [place] [facility] Chloride 101 mEq/L 101 - 111 05/15 [facility]. Studies Level /2017 [facility] [place] [facility] Carbon 27 mEq/L 21 - 31 05/15 [facility]. Studies Dioxide /2017 [facility] [place] [facility] Aspartate 18 IU/L 10 - 42 05/15 [facility]. Studies Amino Transf /2017 [facility] - (AST/SGOT) [place] [facility] Albumin/Glob 1.2 1.1 - 1.8 05/15 [facility]. Studies ulin Ratio /2017 [employer] - [place] [facility] Albumin 3.6 g/dL 3.2 - 5.5 05/15 [facility] St. Studies /2018 [employer] [facility] Alanine 13 IU/L 10 - 60 05/15 [facility]. Studies Aminotransfe /2017 [facility] rase [place] (ALT/SGPT) Laboratory B-Type 60 pg/ml 05/15 [facility] St. Studies Natriuretic [facility] Peptide [place] [facility] Prothrombin 12.6 9.5 - 12.5 05/15 [facility] St. Studies Time SECONDS [facility] [place] [facility] INR 1.07 05/15 [facility] St. Studies Internationa [facility] l Normalized [place] Ratio Laboratory Activated 28.7 24.3 - 05/15 [facility] St. Studies Partial SECONDS 36.9 [facility] Thromboplast [place] Time Laboratory Direct 0.1 mg/dL 0 - 0.2 05/15 [facility] St. Studies Bilirubin [facility] [place] [facility] Magnesium 1.8 mg/dL 1.8 - 2.5 05/15 [facility] St. Studies Level [facility] [place] [facility] Rapid null 05/15 [facility]. Studies Troponin I [facility] [place] [facility] Lipase 33 U/L 22 - 51 05/15 [facility] St. Studies [facility] [place] [facility] Urine WBC null 03/11 [facility] St. Studies [facility] [place] [facility] Urine null 03/11 [facility] St. Studies Squamous [facility] Epithelial [place] Cells Laboratory Urine RBC Urine RBC 03/11 [facility] St. Studies [facility] [place] [facility] Urine Urine 03/11 [facility] St. Studies Culture Culture [facility] Reflexed Reflexed [place] [facility] Urine null 03/11 [facility] St. Studies Bacteria [facility] [place] [facility] Bedside 97 mg/dl 65 - 120 03/11 [facility] St. Studies Glucose [facility] [place] Vital Signs Vital Sign Value Date Comments Source Heart Rate 61 05/16/2017 [facility]. [facility] [place] Systolic (mm Hg) 105 05/16/2017 [facility]. [facility] [place] Diastolic (mm Hg) 69 05/16/2017 [facility] [place] Temperature Oral (F) 97.8 F 05/16/2017 [facility] [place] Respitory Rate 18 05/16/2017 [facility] [place] Height 68 [facility] [place] Weight 155 [facility]/15[facility] [place] En[facility]ters Location Location Encounter Encounter Reason Attending ADM DC Status Source Details Type Number For Provider Date Date Visit [facility] St. Departed [id number] 03/11 03/11 [facility] [place] [facility] [id number] 05/15 05/16 [facility] [place] Procedures [facility] Code Date Perfomer Comments Source Head Brain Wo [id number] [facility] Cont 8 - [place] Chest For Pe [id number] [facility] Angio 8 - [place] Chest Single View [id number] [facility] 8 - [place] [facility] St[facility] kes 8 - [place] [facility] 8 - [place] Chest Single View [id number] [facility] 8 - [place] Ct Stroke Brain [id number] [facility] Wo Cont 8 - [place] INTRODUCE OTH [id number] [facility] THROMBOLYTIC IN 8 - [place] PERIPH VEIN, PERC THER/PROPH/DIAG [id number] [facility]. [facility] INJ IV PUSH 8 - [place]
--- OUTSIDE RECORDS SUMMARY | 2018-05-18 14:28 | XMS REPORT ---
:1950 [facility] [address] [place] [address] Care Team Providers Name Role Phone VANDANA ACOSTA Unavailable Unavailable LOU AVERY Unavailable Unavailable MECCA STERLING Unavailable Unavailable Problems This patient has no known problems. Allergies, Adverse Reactions, Alerts This patient has no known allergies or adverse reactions. Medications This patient has no known medications. Results Test Description Test Time Test Comments Text Results Atomic Results Result Comments MAGNESIUM 2018-04-09 05:42:00 Test Item Value Reference Range Comments MAGNESIUM (BEAKER) (test umyo=011) 1.9 mg/dL 1.6-2.6 BASIC METABOLIC [id number] 05:42:00 Test Item Value Reference Range Comments SODIUM (BEAKER) (test 136 meq/L 136-145 dfyv=741) POTASSIUM (BEAKER) (test 3.8 meq/L 3.5-5.1 qptt=391) CHLORIDE (BEAKER) (test 107 meq/L 98-107 ulwp=944) CO2 (BEAKER) (test 24 meq/L 22-29 syrw=223) BLOOD UREA NITROGEN 14 mg/dL 7-21 (BEAKER) (test htcp=291) CREATININE (BEAKER) (test 0.84 mg/dL 0.57-1.25 zieg=470) GLUCOSE RANDOM (BEAKER) 113 mg/dL 70-105 (test btfv=506) CALCIUM (BEAKER) (test 8.1 mg/dL 8.4-10.2 wxwb=874) EGFR (BEAKER) (test 91 mL/min/1.73 sq m ESTIMATED GFR IS NOT wtfm=4849) ACCURATE CREATININE CLEARANCE IN PREDICTING GLOMERULAR FILTRATION RATE. ESTIMATED GFR IS NOT APPLICABLE FOR DIALYSIS PATIENTS. CBC W/PLT COUNT & AUTO [id number] 04:43:00 Test Item Value Reference Range Comments WHITE BLOOD CELL COUNT (BEAKER) (test qtfc=543) 4.7 K/ L 3.5-10.5 RED BLOOD CELL COUNT (BEAKER) (test gcld=512) 3.54 M/ L 4.63-6.08 HEMOGLOBIN (BEAKER) (test ngbd=073) 8.8 GM/DL 13.7-17.5 HEMATOCRIT (BEAKER) (test vpxs=957) 28.9 % 40.1-51.0 MEAN CORPUSCULAR VOLUME (BEAKER) (test juxf=076) 81.6 fL 79.0-92.2 MEAN CORPUSCULAR HEMOGLOBIN (BEAKER) (test 24.9 pg 25.7-32.2 yklq=871) MEAN CORPUSCULAR HEMOGLOBIN CONC (BEAKER) (test 30.4 GM/DL 32.3-36.5 zmbk=448) RED CELL DISTRIBUTION WIDTH (BEAKER) (test 18.3 % 11.6-14.4 zhdr=109) PLATELET COUNT (BEAKER) (test ftoy=314) 156 K/CU MM 150-450 MEAN PLATELET VOLUME (BEAKER) (test glxb=750) 11.0 fL 9.4-12.4 NUCLEATED RED BLOOD CELLS (BEAKER) (test 0 /100 WBC 0-0 ahhh=934) NEUTROPHILS RELATIVE PERCENT (BEAKER) (test 55 % neeu=930) LYMPHOCYTES RELATIVE PERCENT (BEAKER) (test 29 % woeb=557) MONOCYTES RELATIVE PERCENT (BEAKER) (test 11 % bxbh=560) EOSINOPHILS RELATIVE PERCENT (BEAKER) (test 3 % gqoy=873) BASOPHILS RELATIVE PERCENT (BEAKER) (test 2 % zvwj=893) NEUTROPHILS ABSOLUTE COUNT (BEAKER) (test 2.59 K/ L 1.78-5.38 fsvi=738) LYMPHOCYTES ABSOLUTE COUNT (BEAKER) (test 1.34 K/ L 1.32-3.57 cjkc=972) MONOCYTES ABSOLUTE COUNT (BEAKER) (test 0.51 K/ L 0.30-0.82 vlfo=998) EOSINOPHILS ABSOLUTE COUNT (BEAKER) (test 0.15 K/ L 0.04-0.54 fbnm=499) BASOPHILS ABSOLUTE COUNT (BEAKER) (test 0.07 K/ L 0.01-0.08 zdil=674) IMMATURE GRANULOCYTES-RELATIVE PERCENT (BEAKER) 1 % 0-1 (test wcpc=5332) [id number] 19:48:00 Test Item Value Reference Range Comments ACTIVATED CLOTTING TIME 158 sec TESTED AT [facility] [address] ([address]) (test ardr=457) [facility] [address] [id number] 09:20:00 Test Item Value Reference Range Comments PARTIAL THROMBOPLASTIN TIME (BEAKER) (test 76.2 seconds 22.5-36.0 jpjp=828) CREATINE KINASE (CK)2018-04-08 07:02:00 Test Item Value Reference Range Comments CREATINE KINASE TOTAL (BEAKER) (test yclo=217) 74 U/L 29-200 LACTIC ACID, VENOUS, WHOLE [id number] 06:56:00 Test Item Value Reference Range Comments LACTATE BLOOD VENOUS (2) (BEAKER) (test 1.1 mmol/L 0.5-2.2 kuen=8219) NERVE CONDUCTION STUDIES; 3-4 [id number] 06:53:00Select Extremity-> Right Leg Reason for exam:->painB[facility] HospitalNeurophysiology DepartmentELECTROMYOGRAPHY / NERVE CONDUCTION STUDY [address] [place] [address] Name: Mami Pena : Date of : 1950 Gender: Male Date of Exam: 04/07/2018 4:30 PMReferring Physician: Carole Chow Physician: Melody Benavidez Patient History: Patient presents with a 1 month history of pain in posterior calf, he denies any numbness/tingling or weakness, or low- back pain.On exam, he has 5/5 strength except knee flexion which is limited by pain. This study was done to evaluate for nerve entrapment or radiculopathy.Motor Nerve Conduction:Nerve and Site Latency AmplitudeSegment LatencyDifference Distance ConductionVelocityPeroneal.RAnkle 4.3 ms 4.9 mV Extensor digitorum brevis-Ankle 4.3 ms Fibula (head) 11.6 ms 4.2 mV Ankle- Fibula (head) 7.3 ms 275 mm 38 m/sKnee 14.6ms 5.1 mV Fibula (head)-Knee 3.0 ms 120 mm 40 m/sTibial.RAnkle 3.9 ms 5.1 mV Abductor hallucis-Ankle3.9 ms Popliteal fossa 15.0 ms 3.1 mV Ankle-Popliteal fossa 11.1 ms 440 mm 40 m/sF- Wave StudiesNerve M-Latency F-LatencyPeroneal.R 14.6 53.0Tibial.R 15.0 57.3Sensory Nerve Conduction:Nerve and Site Onset Latency PeakLatency Amplitude Segment LatencyDifference Distance ConductionVelocitySural.RLower leg 2.9 ms 3.7 ms 12 뱇V Ankle-Lower leg 2.9 ms 140 mm 48 m/sNeedle EMG Examination: Insertional Spontaneous Activity Volitional MUAPsMuscle Insertional Fibs +Wave Fasc Duration Amplitude Poly Pattern EffortTibialis anterior.R Normal None None None Normal Normal None Normal Max.Gastrocnemius ( Medial head).R Normal None None None Normal Normal None Normal Max.Vastus medialis.R Normal None NoneNone Normal Normal None Normal Max.Semimembranosus.R Normal None None None Normal Normal None NormalMax.Gluteus medius.R Normal None None None Normal Normal None Normal Max.Summary of findings: 1. Sensory studies of the right sural nerve showed normal findings.2. Motor studies of the right [place] tibial nerves showed normal findings. F-wave latencies were normal.3. Electromyography of the right lower limb was done using a disposable concentric needle. There was no abnormal spontaneous activity. All muscles tested showed normal MUAP morphologies and recruitment patterns.Conclusions: This is a normal electrodiagnostic study. There is no electrophysiologic evidence of large-fiber peripheral neuropathy, nerve entrapment or denervation in the right lower limb. ____Melody Benavidez M.D. 06:53 [id number] 03:03:00 Test Item Value Reference Range Comments PARTIAL THROMBOPLASTIN TIME (BEAKER) (test 82.1 seconds 22.5-36.0 fvqv=034) CT, CTA AAA, W/ SAMMY.EXT.[id number] 16:54:00Addendum BeginsREPORT STATUS:A Addendum: I agree with the previously described non vascular findings. Signed: Angel Payne MDReport Verified Date/Time: 2018 16:54:33 Reading Location: [place] [address] Angio Body Reading RoomAddendum EndsFINAL REPORT CT angiography of the abdominal aorta and pelvic arteries, 07 April 2018 INDICATION: This is a 68 year old male with a diagnosis of peripheral vascular disease presents for assessment. TThis study isperformed in an attempt to avoid an invasive procedure. TECHNIQUE: Spiral acquisition before and during intravenous contrast administration using a Siemens multidetector CT scanner. Images were obtained before and during the dynamic passage of intravenous contrast material. Multi-planar 3-D volume- rendering reconstruction was performed using an independent workstation [...] was utilized to reduce the radiation dose toas low as reasonably achievable. FINDINGS: VASCULAR: Pacing [...] considered nonspecific in nature. In the bony windows , no acute bony pathology is seen. 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 4. Details of the runoff vessels as described above. 5. Other findings as described above. Hepatic steatosis. 6. An addendum willbe dictated regarding the non-vascular findings by the Animal Handler Radiologist. Signed: Steve Musa MDReport Verified Date/Time: 04/07/2018 15:32:19 Reading Location: [place] [address] Cardiology MRI TROPONIN [id number] 11:39:00 Test Item Value Reference Range Comments TROPONIN I (BEAKER) (test fzet=927) < ng/mL 0.00-0.03 Troponin I (TnI) levels [...] acute neurological disease, and persistent tachyarrhythmia.BASIC METABOLIC [id number] 16:14:00 Test Item Value Reference Range Comments SODIUM (BEAKER) (test 133 meq/L 136-145 vtzs=512) POTASSIUM (BEAKER) (test 3.9 meq/L 3.5-5.1 ljrc=482) CHLORIDE (BEAKER) (test 99 meq/L 98-107 cvaj=252) CO2 (BEAKER) (test 23 meq/L 22-29 paam=884) BLOOD UREA NITROGEN 14 mg/dL 7-21 (BEAKER) (test wdks=779) CREATININE (BEAKER) (test 1.02 mg/dL 0.57-1.25 etep=550) GLUCOSE RANDOM (BEAKER) 102 mg/dL 70-105 (test xxnk=995) CALCIUM (BEAKER) (test 9.7 mg/dL 8.4-10.2 ekmn=638) EGFR (BEAKER) (test 72 mL/min/1.73 sq m ESTIMATED GFR IS NOT nnnb=2474) ACCURATE CREATININE CLEARANCE IN PREDICTING GLOMERULAR FILTRATION RATE. ESTIMATED GFR IS NOT APPLICABLE FOR DIALYSIS PATIENTS. [id number] 16:05:00 Test Item Value Reference Range Comments PROTIME (BEAKER) (test xmla=197) 13.8 seconds 11.7-14.7 INR (BEAKER) (test siwr=096) 1.1 <=5.9 PARTIAL THROMBOPLASTIN TIME (BEAKER) (test 31.6 seconds 22.5-36.0 vslv=992) RECOMMENDED COUMADIN/WARFARIN INR THERAPY RANGESSTANDARD DOSE: 2.0 - 3.0 Includes: PROPHYLAXIS forvenous thrombosis, systemic embolization; TREATMENT for venous thrombosis and/or pulmonary embolus.HIGH RISK: Target INR is 2.5-3.5 for patients with mechanical heart valves.CBC W/PLT COUNT & AUTO [id number] 15:56:00 Test Item Value Reference Range Comments WHITE BLOOD CELL COUNT (BEAKER) (test cfwu=186) 9.2 K/ L 3.5-10.5 RED BLOOD CELL COUNT (BEAKER) (test apjs=271) 4.75 M/ L 4.63-6.08 HEMOGLOBIN (BEAKER) (test vprk=328) 11.8 GM/DL 13.7-17.5 HEMATOCRIT (BEAKER) (test goop=299) 38.8 % 40.1-51.0 MEAN CORPUSCULAR VOLUME (BEAKER) (test nnqh=355) 81.7 fL 79.0-92.2 MEAN CORPUSCULAR HEMOGLOBIN (BEAKER) (test 24.8 pg 25.7-32.2 zkzz=967) MEAN CORPUSCULAR HEMOGLOBIN CONC (BEAKER) (test 30.4 GM/DL 32.3-36.5 rxnj=882) RED CELL DISTRIBUTION WIDTH (BEAKER) (test 18.6 % 11.6-14.4 vncl=394) PLATELET COUNT (BEAKER) (test wwsa=574) 254 K/CU MM 150-450 MEAN PLATELET VOLUME (BEAKER) (test ihqx=537) 11.4 fL 9.4-12.4 NUCLEATED RED BLOOD CELLS (BEAKER) (test 0 /100 WBC 0-0 nyhr=847) NEUTROPHILS RELATIVE PERCENT (BEAKER) (test 62 % vwez=409) LYMPHOCYTES RELATIVE PERCENT (BEAKER) (test 27 % guyu=337) MONOCYTES RELATIVE PERCENT (BEAKER) (test 9 % izzw=981) EOSINOPHILS RELATIVE PERCENT (BEAKER) (test 1 % nqjk=667) BASOPHILS RELATIVE PERCENT (BEAKER) (test 1 % bdgc=119) NEUTROPHILS ABSOLUTE COUNT (BEAKER) (test 5.71 K/ L 1.78-5.38 opnr=223) LYMPHOCYTES ABSOLUTE COUNT (BEAKER) (test 2.47 K/ L 1.32-3.57 thhc=216) MONOCYTES ABSOLUTE COUNT (BEAKER) (test 0.83 K/ L 0.30-0.82 twwv=300) EOSINOPHILS ABSOLUTE COUNT (BEAKER) (test 0.07 K/ L 0.04-0.54 bfjc=279) BASOPHILS ABSOLUTE COUNT (BEAKER) (test 0.11 K/ L 0.01-0.08 lekl=876) IMMATURE GRANULOCYTES-RELATIVE PERCENT (BEAKER) 1 % 0-1 (test fayy=9061) TSH/FREE T4 IF [id number] 04:03:00 Test Item Value Reference Range Comments THYROID STIMULATING HORMONE (BEAKER) (test 3.16 uIU/mL 0.35-4.94 cpri=463) BASIC METABOLIC [id number] 03:35:00 Test Item Value Reference Range Comments SODIUM (BEAKER) (test 135 meq/L 136-145 efzj=373) POTASSIUM (BEAKER) (test 3.9 meq/L 3.5-5.1 ehcn=056) CHLORIDE (BEAKER) (test 106 meq/L 98-107 hhpq=618) CO2 (BEAKER) (test 22 meq/L 22-29 cqbl=317) BLOOD UREA NITROGEN 13 mg/dL 7-21 (BEAKER) (test mrie=200) CREATININE (BEAKER) (test 0.81 mg/dL 0.57-1.25 gtxz=729) GLUCOSE RANDOM (BEAKER) 91 mg/dL 70-105 (test zaul=692) CALCIUM (BEAKER) (test 8.5 mg/dL 8.4-10.2 vbsy=105) EGFR (BEAKER) (test 95 mL/min/1.73 sq m ESTIMATED GFR IS NOT tisk=3147) ACCURATE CREATININE CLEARANCE IN PREDICTING GLOMERULAR FILTRATION RATE. ESTIMATED GFR IS NOT APPLICABLE FOR DIALYSIS PATIENTS. CBC W/PLT COUNT & AUTO [id number] 03:24:00 Test Item Value Reference Range Comments WHITE BLOOD CELL COUNT (BEAKER) (test pvdr=513) 5.2 K/ L 3.5-10.5 RED BLOOD CELL COUNT (BEAKER) (test yyww=079) 4.07 M/ L 4.63-6.08 HEMOGLOBIN (BEAKER) (test uvfh=494) 11.2 GM/DL 13.7-17.5 HEMATOCRIT (BEAKER) (test unvb=700) 35.9 % 40.1-51.0 MEAN CORPUSCULAR VOLUME (BEAKER) (test gfso=962) 88.2 fL 79.0-92.2 MEAN CORPUSCULAR HEMOGLOBIN (BEAKER) (test 27.5 pg 25.7-32.2 wtgp=410) MEAN CORPUSCULAR HEMOGLOBIN CONC (BEAKER) (test 31.2 GM/DL 32.3-36.5 rhtd=237) RED CELL DISTRIBUTION WIDTH (BEAKER) (test 16.9 % 11.6-14.4 orly=597) PLATELET COUNT (BEAKER) (test tond=505) 161 K/CU MM 150-450 MEAN PLATELET VOLUME (BEAKER) (test fyct=172) 10.7 fL 9.4-12.4 NUCLEATED RED BLOOD CELLS (BEAKER) (test 0 /100 WBC 0-0 kyud=757) NEUTROPHILS RELATIVE PERCENT (BEAKER) (test 51 % mvsg=440) LYMPHOCYTES RELATIVE PERCENT (BEAKER) (test 32 % yeou=556) MONOCYTES RELATIVE PERCENT (BEAKER) (test 11 % xfyl=567) EOSINOPHILS RELATIVE PERCENT (BEAKER) (test 3 % ncjj=301) BASOPHILS RELATIVE PERCENT (BEAKER) (test 2 % iogx=228) NEUTROPHILS ABSOLUTE COUNT (BEAKER) (test 2.67 K/ L 1.78-5.38 wtzj=306) LYMPHOCYTES ABSOLUTE COUNT (BEAKER) (test 1.68 K/ L 1.32-3.57 hndt=443) MONOCYTES ABSOLUTE COUNT (BEAKER) (test 0.58 K/ L 0.30-0.82 tzml=853) EOSINOPHILS ABSOLUTE COUNT (BEAKER) (test 0.18 K/ L 0.04-0.54 eqtv=442) BASOPHILS ABSOLUTE COUNT (BEAKER) (test 0.08 K/ L 0.01-0.08 wlcm=905) IMMATURE GRANULOCYTES-RELATIVE PERCENT (BEAKER) 1 % 0-1 (test iltv=7817) TROPONIN [id number] 20:57:00 Test Item Value Reference Range Comments TROPONIN I (BEAKER) (test gpcp=518) < ng/mL 0.00-0.03 Troponin I (TnI) levels [...] persistent tachyarrhythmia.CT BRAIN WITHOUT IV CONTRAST - [id number] 18:41:00Reason for exam:->Post tPAFINAL REPORT CT head [...] Paez Verified Date/Time: 12/01/2017 18:41:06 Reading Location: [facility] Radiology Reading Room TROPONIN [id number] 17:00:00 Test Item Value Reference Range Comments TROPONIN I (BEAKER) (test awuy=010) < ng/mL 0.00-0.03 Troponin I (TnI) levels [...] failure, acidosis, acute neurological disease, and persistent tachyarrhythmia.[id number] 16:23:00 Test Item Value Reference Range Comments POTASSIUM (BEAKER) (test gqdl=498) 3.7 meq/L 3.5-5.1 Check Serum Potassium level 2 hours after oral potassium replacement completed or 30 min after intravenous potassium replacement.[id number] 11:59:00 Test Item Value Reference Range Comments MAGNESIUM (BEAKER) (test 2.2 mg/dL 1.6-2.6 Specimen slightly hemolyzed khwp=339) [id number] 11:59:00 Test Item Value Reference Range Comments PHOSPHORUS (BEAKER) (test 2.6 mg/dL 2.3-4.7 Specimen slightly hemolyzed fenj=919) HEMOGLOBIN [id number] 11:49:00 Test Item Value Reference Range Comments HEMOGLOBIN A1C (BEAKER) (test qvhr=960) 6.0 % 4.3-6.1 TROPONIN [id number] 08:40:00 Test Item Value Reference Range Comments TROPONIN I (BEAKER) (test mgiy=216) < ng/mL 0.00-0.03 Troponin I (TnI) levels [...] acidosis, acute neurological disease, and persistent tachyarrhythmia.LIPID [id number] 04:39:00 Test Item Value Reference Range Comments TRIGLYCERIDES (BEAKER) (test egmh=822) 119 mg/dL CHOLESTEROL (BEAKER) (test uzsu=511) 144 mg/dL HDL CHOLESTEROL (BEAKER) (test zsgf=997) 26 mg/dL LDL CHOLESTEROL CALCULATED (BEAKER) (test 94 mg/dL xwrx=533) Triglyceride Reference Range: Low Risk <150 Borderline 150- 199 High Risk 200-499 Very High Risk >=500Cholesterol Reference Range: Low Risk <200 Borderline 200-239 High Risk > 240HDL Cholesterol Reference Range: Low Risk >=60 High Risk <40LDL Cholesterol Reference Range: Optimal <100 Near Optimal 100-129 Borderline 130-159 High 160-189 Very High >=190 FastingBASIC METABOLIC [id number] 04:39:00 Test Item Value Reference Range Comments SODIUM (BEAKER) (test 136 meq/L 136-145 zzpv=284) POTASSIUM (BEAKER) (test 3.7 meq/L 3.5-5.1 lytu=282) CHLORIDE (BEAKER) (test 105 meq/L 98-107 opca=634) CO2 (BEAKER) (test 23 meq/L 22-29 joun=747) BLOOD UREA NITROGEN 14 mg/dL 7-21 (BEAKER) (test ecnh=264) CREATININE (BEAKER) (test 0.86 mg/dL 0.57-1.25 ygln=039) GLUCOSE RANDOM (BEAKER) 94 mg/dL 70-105 (test gyie=796) CALCIUM (BEAKER) (test 8.8 mg/dL 8.4-10.2 qwjk=557) EGFR (BEAKER) (test 88 mL/min/1.73 sq m ESTIMATED GFR IS NOT pnwy=1809) ACCURATE CREATININE CLEARANCE IN PREDICTING GLOMERULAR FILTRATION RATE. ESTIMATED GFR IS NOT APPLICABLE FOR DIALYSIS PATIENTS. FastingCBC W/PLT COUNT & AUTO [id number] 04:25:00 Test Item Value Reference Range Comments WHITE BLOOD CELL COUNT (BEAKER) (test xmss=906) 5.0 K/ L 3.5-10.5 RED BLOOD CELL COUNT (BEAKER) (test xlqw=070) 4.03 M/ L 4.63-6.08 HEMOGLOBIN (BEAKER) (test oqim=885) 11.3 GM/DL 13.7-17.5 HEMATOCRIT (BEAKER) (test ahmq=689) 35.2 % 40.1-51.0 MEAN CORPUSCULAR VOLUME (BEAKER) (test ihhp=175) 87.3 fL 79.0-92.2 MEAN CORPUSCULAR HEMOGLOBIN (BEAKER) (test 28.0 pg 25.7-32.2 ldbn=190) MEAN CORPUSCULAR HEMOGLOBIN CONC (BEAKER) (test 32.1 GM/DL 32.3-36.5 ynif=309) RED CELL DISTRIBUTION WIDTH (BEAKER) (test 16.9 % 11.6-14.4 kszg=077) PLATELET COUNT (BEAKER) (test aahf=243) 179 K/CU MM 150-450 MEAN PLATELET VOLUME (BEAKER) (test iogy=364) 11.6 fL 9.4-12.4 NUCLEATED RED BLOOD CELLS (BEAKER) (test 0 /100 WBC 0-0 ogdd=002) NEUTROPHILS RELATIVE PERCENT (BEAKER) (test 48 % vuiq=551) LYMPHOCYTES RELATIVE PERCENT (BEAKER) (test 36 % tuyn=285) MONOCYTES RELATIVE PERCENT (BEAKER) (test 10 % pzdn=436) EOSINOPHILS RELATIVE PERCENT (BEAKER) (test 3 % nezp=041) BASOPHILS RELATIVE PERCENT (BEAKER) (test 2 % ttmz=110) NEUTROPHILS ABSOLUTE COUNT (BEAKER) (test 2.41 K/ L 1.78-5.38 jzft=990) LYMPHOCYTES ABSOLUTE COUNT (BEAKER) (test 1.80 K/ L 1.32-3.57 dwfg=460) MONOCYTES ABSOLUTE COUNT (BEAKER) (test 0.52 K/ L 0.30-0.82 ufkq=712) EOSINOPHILS ABSOLUTE COUNT (BEAKER) (test 0.17 K/ L 0.04-0.54 zyat=754) BASOPHILS ABSOLUTE COUNT (BEAKER) (test 0.08 K/ L 0.01-0.08 jgot=509) IMMATURE GRANULOCYTES-RELATIVE PERCENT (BEAKER) 1 % 0-1 (test nsdy=8914) HEMOGLOBIN [id number] 22:29:00 Test Item Value Reference Range Comments HEMOGLOBIN A1C (BEAKER) (test jdhq=338) 5.9 % 4.3-6.1 VITAMIN B12 AND [id number] 18:47:00 Test Item Value Reference Range Comments VITAMIN B12 (BEAKER) (test mcje=490) 1185 pg/mL 213-816 FOLATE (BEAKER) (test mksf=323) 2.3 ng/mL >=7.0 TROPONIN [id number] 18:18:00 Test Item Value Reference Range Comments TROPONIN I (BEAKER) (test mbmt=408) < ng/mL 0.00-0.03 Troponin I (TnI) levels [...] acute neurological disease, and persistent tachyarrhythmia.BASIC METABOLIC [id number] 18:10:00 Test Item Value Reference Range Comments SODIUM (BEAKER) (test 136 meq/L 136-145 hdim=543) POTASSIUM (BEAKER) (test 3.8 meq/L 3.5-5.1 wezo=951) CHLORIDE (BEAKER) (test 102 meq/L 98-107 cdvb=716) CO2 (BEAKER) (test 23 meq/L 22-29 gnca=370) BLOOD UREA NITROGEN 10 mg/dL 7-21 (BEAKER) (test xnyv=727) CREATININE (BEAKER) (test 0.88 mg/dL 0.57-1.25 adyp=363) GLUCOSE RANDOM (BEAKER) 102 mg/dL 70-105 (test umta=945) CALCIUM (BEAKER) (test 9.3 mg/dL 8.4-10.2 hfla=063) EGFR (BEAKER) (test 86 mL/min/1.73 sq m ESTIMATED GFR IS NOT ltvg=4623) ACCURATE CREATININE CLEARANCE IN PREDICTING GLOMERULAR FILTRATION RATE. ESTIMATED GFR IS NOT APPLICABLE FOR DIALYSIS PATIENTS. CBC W/PLT COUNT & AUTO [id number] 17:52:00 Test Item Value Reference Range Comments WHITE BLOOD CELL COUNT (BEAKER) (test bchb=964) 8.8 K/ L 3.5-10.5 RED BLOOD CELL COUNT (BEAKER) (test fjqa=117) 4.53 M/ L 4.63-6.08 HEMOGLOBIN (BEAKER) (test bzjz=305) 12.6 GM/DL 13.7-17.5 HEMATOCRIT (BEAKER) (test ptrx=944) 39.4 % 40.1-51.0 MEAN CORPUSCULAR VOLUME (BEAKER) (test qgzl=834) 87.0 fL 79.0-92.2 MEAN CORPUSCULAR HEMOGLOBIN (BEAKER) (test 27.8 pg 25.7-32.2 qsep=964) MEAN CORPUSCULAR HEMOGLOBIN CONC (BEAKER) (test 32.0 GM/DL 32.3-36.5 gvgv=031) RED CELL DISTRIBUTION WIDTH (BEAKER) (test 17.0 % 11.6-14.4 pbcw=467) PLATELET COUNT (BEAKER) (test mbca=210) 186 K/CU MM 150-450 MEAN PLATELET VOLUME (BEAKER) (test zqzq=456) 10.5 fL 9.4-12.4 NUCLEATED RED BLOOD CELLS (BEAKER) (test 0 /100 WBC 0-0 ncpg=744) NEUTROPHILS RELATIVE PERCENT (BEAKER) (test 69 % jnzn=590) LYMPHOCYTES RELATIVE PERCENT (BEAKER) (test 20 % dkze=654) MONOCYTES RELATIVE PERCENT (BEAKER) (test 9 % uvpt=629) EOSINOPHILS RELATIVE PERCENT (BEAKER) (test 1 % ajug=964) BASOPHILS RELATIVE PERCENT (BEAKER) (test 1 % bpqd=638) NEUTROPHILS ABSOLUTE COUNT (BEAKER) (test 6.12 K/ L 1.78-5.38 gvig=853) LYMPHOCYTES ABSOLUTE COUNT (BEAKER) (test 1.72 K/ L 1.32-3.57 uwdx=350) MONOCYTES ABSOLUTE COUNT (BEAKER) (test 0.75 K/ L 0.30-0.82 togv=832) EOSINOPHILS ABSOLUTE COUNT (BEAKER) (test 0.08 K/ L 0.04-0.54 vzlh=414) BASOPHILS ABSOLUTE COUNT (BEAKER) (test 0.09 K/ L 0.01-0.08 lglg=267) IMMATURE GRANULOCYTES-RELATIVE PERCENT (BEAKER) 1 % 0-1 (test kzly=7165) BASIC METABOLIC [id number] 07:51:00 Test Item Value Reference Range Comments SODIUM (BEAKER) (test 136 meq/L 136-145 ogga=870) POTASSIUM (BEAKER) (test 4.0 meq/L 3.5-5.1 gzpl=890) CHLORIDE (BEAKER) (test 106 meq/L 98-107 zoqc=196) CO2 (BEAKER) (test 23 meq/L 22-29 kuzu=259) BLOOD UREA NITROGEN 15 mg/dL 7-21 (BEAKER) (test aohl=060) CREATININE (BEAKER) (test 0.92 mg/dL 0.57-1.25 zxkp=640) GLUCOSE RANDOM (BEAKER) 92 mg/dL 70-105 (test vott=655) CALCIUM (BEAKER) (test 8.7 mg/dL 8.4-10.2 sgzr=928) EGFR (BEAKER) (test 82 mL/min/1.73 sq m ESTIMATED GFR IS NOT ahlr=6752) ACCURATE CREATININE CLEARANCE IN PREDICTING GLOMERULAR FILTRATION RATE. ESTIMATED GFR IS NOT APPLICABLE FOR DIALYSIS PATIENTS. CBC W/PLT COUNT & AUTO [id number] 05:55:00 Test Item Value Reference Range Comments WHITE BLOOD CELL COUNT (BEAKER) (test iwtt=375) 5.9 K/ L 3.5-10.5 RED BLOOD CELL COUNT (BEAKER) (test nsvc=227) 4.25 M/ L 4.63-6.08 HEMOGLOBIN (BEAKER) (test pxzs=253) 12.3 GM/DL 13.7-17.5 HEMATOCRIT (BEAKER) (test hnle=796) 37.8 % 40.1-51.0 MEAN CORPUSCULAR VOLUME (BEAKER) (test vklh=546) 88.9 fL 79.0-92.2 MEAN CORPUSCULAR HEMOGLOBIN (BEAKER) (test 28.9 pg 25.7-32.2 lnuh=119) MEAN CORPUSCULAR HEMOGLOBIN CONC (BEAKER) (test 32.5 GM/DL 32.3-36.5 jbpv=974) RED CELL DISTRIBUTION WIDTH (BEAKER) (test 15.9 % 11.6-14.4 nqhe=448) PLATELET COUNT (BEAKER) (test cpfe=133) 173 K/CU MM 150-450 MEAN PLATELET VOLUME (BEAKER) (test akuw=154) 11.5 fL 9.4-12.4 NUCLEATED RED BLOOD CELLS (BEAKER) (test 0 /100 WBC 0-0 lxts=254) NEUTROPHILS RELATIVE PERCENT (BEAKER) (test 48 % fjma=351) LYMPHOCYTES RELATIVE PERCENT (BEAKER) (test 34 % ezij=177) MONOCYTES RELATIVE PERCENT (BEAKER) (test 12 % xoin=356) EOSINOPHILS RELATIVE PERCENT (BEAKER) (test 4 % zxfb=127) BASOPHILS RELATIVE PERCENT (BEAKER) (test 2 % lheq=196) NEUTROPHILS ABSOLUTE COUNT (BEAKER) (test 2.85 K/ L 1.78-5.38 dfyb=402) LYMPHOCYTES ABSOLUTE COUNT (BEAKER) (test 2.02 K/ L 1.32-3.57 bbwt=212) MONOCYTES ABSOLUTE COUNT (BEAKER) (test 0.68 K/ L 0.30-0.82 jxgp=137) EOSINOPHILS ABSOLUTE COUNT (BEAKER) (test 0.25 K/ L 0.04-0.54 gbzp=012) BASOPHILS ABSOLUTE COUNT (BEAKER) (test 0.09 K/ L 0.01-0.08 ktid=425) IMMATURE GRANULOCYTES-RELATIVE PERCENT (BEAKER) 1 % 0-1 (test wpow=8999) CBC W/PLT COUNT & AUTO [id number] 05:15:00 Test Item Value Reference Range Comments WHITE BLOOD CELL COUNT (BEAKER) (test izsj=233) 5.4 K/ L 3.5-10.5 RED BLOOD CELL COUNT (BEAKER) (test ezaz=259) 4.34 M/ L 4.63-6.08 HEMOGLOBIN (BEAKER) (test ntxp=937) 12.5 GM/DL 13.7-17.5 HEMATOCRIT (BEAKER) (test qxwy=992) 39.0 % 40.1-51.0 MEAN CORPUSCULAR VOLUME (BEAKER) (test oejo=049) 89.9 fL 79.0-92.2 MEAN CORPUSCULAR HEMOGLOBIN (BEAKER) (test 28.8 pg 25.7-32.2 gqbo=092) MEAN CORPUSCULAR HEMOGLOBIN CONC (BEAKER) (test 32.1 GM/DL 32.3-36.5 yuoy=575) RED CELL DISTRIBUTION WIDTH (BEAKER) (test 15.9 % 11.6-14.4 syss=377) PLATELET COUNT (BEAKER) (test axil=743) 162 K/CU MM 150-450 MEAN PLATELET VOLUME (BEAKER) (test lyvc=678) 10.6 fL 9.4-12.4 NUCLEATED RED BLOOD CELLS (BEAKER) (test 0 /100 WBC 0-0 pbaz=575) NEUTROPHILS RELATIVE PERCENT (BEAKER) (test 52 % zhes=283) LYMPHOCYTES RELATIVE PERCENT (BEAKER) (test 31 % vsxj=630) MONOCYTES RELATIVE PERCENT (BEAKER) (test 11 % zdfa=947) EOSINOPHILS RELATIVE PERCENT (BEAKER) (test 4 % ehwy=584) BASOPHILS RELATIVE PERCENT (BEAKER) (test 2 % mvgl=435) NEUTROPHILS ABSOLUTE COUNT (BEAKER) (test 2.78 K/ L 1.78-5.38 owoy=775) LYMPHOCYTES ABSOLUTE COUNT (BEAKER) (test 1.69 K/ L 1.32-3.57 psex=110) MONOCYTES ABSOLUTE COUNT (BEAKER) (test 0.59 K/ L 0.30-0.82 wfut=717) EOSINOPHILS ABSOLUTE COUNT (BEAKER) (test 0.21 K/ L 0.04-0.54 lnnx=812) BASOPHILS ABSOLUTE COUNT (BEAKER) (test 0.09 K/ L 0.01-0.08 ztqe=101) IMMATURE GRANULOCYTES-RELATIVE PERCENT (KYARA) 1 % 0-1 (test ijdb=8640) CT, BRAIN, WITHOUT [id number] 15:31:00FINAL REPORT CT head without contrast 03/12/2017 [...] left caudate nucleus infarct. Signed: Wilbert Paez MDReport Verified Date/Time: 03/12/2017 15:31:17 Reading Location: [address] Neuro Reading Room TROPONIN [id number] 15:26:00 Test Item Value Reference Range Comments TROPONIN I (KYARA) (test kxac=675) 0.02 ng/mL 0.00-0.03 Troponin I (TnI) levels [...] acidosis, acute neurological disease, and persistent tachyarrhythmia.HEMOGLOBIN [id number] 12:38:00 Test Item Value Reference Range Comments HEMOGLOBIN A1C (KYARA) (test bndx=683) 5.6 % 4.3-6.1 FastingRAD, CHEST, 1 VIEW, NON [id number] 10:06:00Reason for exam:->rule out pneumoniaShould this be [...] Benites Verified Date/Time: 03/12/2017 10:06:57 Reading Location: [facility] Radiology Reading Room [id number] 09:08:00 Test Item Value Reference Range Comments HOMOCYSTEINE (BEAKER) (test jzkk=159) 11.8 umol/L 5.1-15.4 FastingCREATINE KINASE (CK), TOTAL AND [id number] 08:55:00 Test Item Value Reference Range Comments CREATINE KINASE TOTAL (BEAKER) (test bjaw=113) 59 U/L 29-200 CREATINE KINASE-MB (BEAKER) (test wacu=943) 1.0 ng/mL 0.0-6.6 CREATINE KINASE-MB INDEX (BEAKER) (test bjyz=139) 1.7 % CK-MB Reference Range:<6.7 Normal6.7-10.0 Borderline>10.0 AbnormalFastingFastingTROPONIN [id number] 08:55:00 Test Item Value Reference Range Comments TROPONIN I (BEAKER) (test qmql=430) < ng/mL 0.00-0.03 Troponin I (TnI) levels [...] acidosis, acute neurological disease, and persistent tachyarrhythmia.FastingLIPID [id number] 08:48:00 Test Item Value Reference Range Comments TRIGLYCERIDES (BEAKER) (test jtmd=171) 151 mg/dL CHOLESTEROL (BEAKER) (test yrtj=395) 147 mg/dL HDL CHOLESTEROL (BEAKER) (test zzps=203) 29 mg/dL LDL CHOLESTEROL CALCULATED (BEAKER) (test 88 mg/dL hmio=736) Triglyceride Reference Range: Low Risk <150 Borderline 150- 199 High Risk 200-499 Very High Risk >=500Cholesterol Reference Range: Low Risk <200 Borderline 200-239 High Risk > 240HDL Cholesterol Reference Range: Low Risk >=60 High Risk <40LDL Cholesterol Reference Range: Optimal <100 Near Optimal 100-129 Borderline 130-159 High 160-189 Very High >=190 FastingBASIC METABOLIC [id number] 08:48:00 Test Item Value Reference Range Comments SODIUM (BEAKER) (test 136 meq/L 136-145 sxdg=575) POTASSIUM (BEAKER) (test 4.4 meq/L 3.5-5.1 krms=610) CHLORIDE (BEAKER) (test 104 meq/L 98-107 fles=745) CO2 (BEAKER) (test 25 meq/L 22-29 ivvp=536) BLOOD UREA NITROGEN 15 mg/dL 7-21 (BEAKER) (test wcam=136) CREATININE (BEAKER) (test 0.87 mg/dL 0.57-1.25 cbag=662) GLUCOSE RANDOM (BEAKER) 102 mg/dL 70-105 (test oygp=244) CALCIUM (BEAKER) (test 8.9 mg/dL 8.4-10.2 odmw=468) EGFR (BEAKER) (test 87 mL/min/1.73 sq m ESTIMATED GFR IS NOT gwjg=5897) ACCURATE CREATININE CLEARANCE IN PREDICTING GLOMERULAR FILTRATION RATE. ESTIMATED GFR IS NOT APPLICABLE FOR DIALYSIS PATIENTS. FastingCBC W/PLT COUNT & AUTO [id number] 08:24:00 Test Item Value Reference Range Comments WHITE BLOOD CELL COUNT (BEAKER) (test yvcl=669) 5.7 K/ L 3.5-10.5 RED BLOOD CELL COUNT (BEAKER) (test uptx=471) 4.23 M/ L 4.63-6.08 HEMOGLOBIN (BEAKER) (test cnyc=865) 12.3 GM/DL 13.7-17.5 HEMATOCRIT (BEAKER) (test redt=094) 37.9 % 40.1-51.0 MEAN CORPUSCULAR VOLUME (BEAKER) (test ifvq=867) 89.6 fL 79.0-92.2 MEAN CORPUSCULAR HEMOGLOBIN (BEAKER) (test 29.1 pg 25.7-32.2 bwcg=563) MEAN CORPUSCULAR HEMOGLOBIN CONC (BEAKER) (test 32.5 GM/DL 32.3-36.5 ornl=744) RED CELL DISTRIBUTION WIDTH (BEAKER) (test 15.9 % 11.6-14.4 mspi=208) PLATELET COUNT (BEAKER) (test axep=626) 156 K/CU MM 150-450 MEAN PLATELET VOLUME (BEAKER) (test daeq=430) 10.2 fL 9.4-12.4 NUCLEATED RED BLOOD CELLS (BEAKER) (test 0 /100 WBC 0-0 bwir=021) NEUTROPHILS RELATIVE PERCENT (BEAKER) (test 47 % omkw=941) LYMPHOCYTES RELATIVE PERCENT (BEAKER) (test 37 % mqwg=268) MONOCYTES RELATIVE PERCENT (BEAKER) (test 12 % lqnk=871) EOSINOPHILS RELATIVE PERCENT (BEAKER) (test 3 % hoay=741) BASOPHILS RELATIVE PERCENT (BEAKER) (test 2 % ybjo=459) NEUTROPHILS ABSOLUTE COUNT (BEAKER) (test 2.66 K/ L 1.78-5.38 bzkv=876) LYMPHOCYTES ABSOLUTE COUNT (BEAKER) (test 2.09 K/ L 1.32-3.57 didg=634) MONOCYTES ABSOLUTE COUNT (BEAKER) (test 0.70 K/ L 0.30-0.82 euys=907) EOSINOPHILS ABSOLUTE COUNT (BEAKER) (test 0.15 K/ L 0.04-0.54 fusm=033) BASOPHILS ABSOLUTE COUNT (BEAKER) (test 0.09 K/ L 0.01-0.08 kbgy=200) IMMATURE GRANULOCYTES-RELATIVE PERCENT (BEAKER) 1 % 0-1 (test rvic=7459) TSH/FREE T4 IF [id number] 03:38:00 Test Item Value Reference Range Comments THYROID STIMULATING HORMONE (BEAKER) (test 2.01 uIU/mL 0.35-4.94 qolp=967) VITAMIN B12 AND [id number] 03:38:00 Test Item Value Reference Range Comments VITAMIN B12 (BEAKER) (test vams=052) 1008 pg/mL 213-816 FOLATE (BEAKER) (test glkd=588) 8.4 ng/mL >=7.0 CREATINE KINASE (CK), TOTAL AND [id number] 01:03:00 Test Item Value Reference Range Comments CREATINE KINASE TOTAL (BEAKER) (test itab=774) 66 U/L 29-200 CREATINE KINASE-MB (BEAKER) (test dzls=079) 1.4 ng/mL 0.0-6.6 CREATINE KINASE-MB INDEX (BEAKER) (test oqkh=112) 2.1 % CK-MB Reference Range:<6.7 Normal6.7-10.0 Borderline>10.0 AbnormalTROPONIN [id number] 01:03:00 Test Item Value Reference Range Comments TROPONIN I (BEAKER) (test ahlz=641) 0.02 ng/mL 0.00-0.03 Troponin I (TnI) levels [...] acute neurological disease, and persistent tachyarrhythmia.BASIC METABOLIC [id number] 00:56:00 Test Item Value Reference Range Comments SODIUM (BEAKER) (test 136 meq/L 136-145 fbyy=089) POTASSIUM (BEAKER) (test 3.9 meq/L 3.5-5.1 fala=563) CHLORIDE (BEAKER) (test 104 meq/L 98-107 hmed=137) CO2 (BEAKER) (test 24 meq/L 22-29 ieno=286) BLOOD UREA NITROGEN 14 mg/dL 7-21 (BEAKER) (test lqpr=570) CREATININE (BEAKER) (test 0.87 mg/dL 0.57-1.25 mjra=486) GLUCOSE RANDOM (BEAKER) 104 mg/dL 70-105 (test ktbi=376) CALCIUM (BEAKER) (test 9.2 mg/dL 8.4-10.2 sxom=088) EGFR (BEAKER) (test 87 mL/min/1.73 sq m ESTIMATED GFR IS NOT dsyn=9886) ACCURATE CREATININE CLEARANCE IN PREDICTING GLOMERULAR FILTRATION RATE. ESTIMATED GFR IS NOT APPLICABLE FOR DIALYSIS PATIENTS. PROTHROMBIN [id number] 00:27:00 Test Item Value Reference Range Comments PROTIME (BEAKER) (test xcyz=396) 17.2 seconds 11.7-14.7 INR (BEAKER) (test uxel=297) 1.4 <=5.9 RECOMMENDED COUMADIN/WARFARIN INR THERAPY RANGESSTANDARD DOSE: 2.0 - 3.0 Includes: PROPHYLAXIS forvenous thrombosis, systemic embolization; TREATMENT for venous thrombosis and/or pulmonary embolus.HIGH RISK: Target INR is 2.5-3.5 for patients with mechanical heart valves.CBC W/PLT COUNT & AUTO [id number] 00:01:00 Test Item Value Reference Range Comments WHITE BLOOD CELL COUNT (BEAKER) (test prnb=001) 8.2 K/ L 3.5-10.5 RED BLOOD CELL COUNT (BEAKER) (test egwm=402) 4.57 M/ L 4.63-6.08 HEMOGLOBIN (BEAKER) (test htsz=319) 13.2 GM/DL 13.7-17.5 HEMATOCRIT (BEAKER) (test fwdl=401) 40.5 % 40.1-51.0 MEAN CORPUSCULAR VOLUME (BEAKER) (test zqfs=422) 88.6 fL 79.0-92.2 MEAN CORPUSCULAR HEMOGLOBIN (BEAKER) (test 28.9 pg 25.7-32.2 hrbz=618) MEAN CORPUSCULAR HEMOGLOBIN CONC (BEAKER) (test 32.6 GM/DL 32.3-36.5 bcdg=497) RED CELL DISTRIBUTION WIDTH (BEAKER) (test 15.9 % 11.6-14.4 fxut=369) PLATELET COUNT (BEAKER) (test wnwi=963) 198 K/CU MM 150-450 MEAN PLATELET VOLUME (BEAKER) (test ukfm=807) 11.2 fL 9.4-12.4 NUCLEATED RED BLOOD CELLS (BEAKER) (test 0 /100 WBC 0-0 atop=910) NEUTROPHILS RELATIVE PERCENT (BEAKER) (test 57 % zhot=753) LYMPHOCYTES RELATIVE PERCENT (BEAKER) (test 28 % xohf=602) MONOCYTES RELATIVE PERCENT (BEAKER) (test 10 % gkyz=421) EOSINOPHILS RELATIVE PERCENT (BEAKER) (test 3 % hpqo=917) BASOPHILS RELATIVE PERCENT (BEAKER) (test 1 % qvei=810) NEUTROPHILS ABSOLUTE COUNT (BEAKER) (test 4.66 K/ L 1.78-5.38 zlak=672) LYMPHOCYTES ABSOLUTE COUNT (BEAKER) (test 2.29 K/ L 1.32-3.57 vrjb=920) MONOCYTES ABSOLUTE COUNT (BEAKER) (test 0.81 K/ L 0.30-0.82 wumj=058) EOSINOPHILS ABSOLUTE COUNT (BEAKER) (test 0.25 K/ L 0.04-0.54 ykbd=633) BASOPHILS ABSOLUTE COUNT (BEAKER) (test 0.10 K/ L 0.01-0.08 sfah=048) IMMATURE GRANULOCYTES-RELATIVE PERCENT (BEAKER) 1 % 0-1 (test khoc=0831)
--- NOTE | 2018-05-18 15:24 | RAD REPORT ---
EXAM DESCRIPTION: RAD - Chest Single View - 05/18/2018 3:10 pm CLINICAL HISTORY: Chest pain, shortness of breath COMPARISON: February 2018 TECHNIQUE: AP portable chest image was obtained 1504 hour . FINDINGS: Lungs are fibrotic in a pattern similar to the comparison. Pacemaker remains in place. Kervin ateral apical pleural thickening changes are present. No superimposed failure, infiltrate or mass. He art and vasculature are normal. No measurable pleural effusion and no pneumothorax. No acute bony abn ormality seen. No acute aortic findings suspected. IMPRESSION: Chronic interstitial lung pattern similar to comparison. No acute finding.
[2018-05-18 15:36] LABS: Absolute Lymphocytes (CBC) 1.4 K/uL (0.7-4.9); Absolute Monocytes 0.6 K/uL (0.1-1.3); Absolute Neutrophil 2.8 K/uL (1.8-8.0); Basophils % 1.7 % (0-1.3); Eosinophils % 2.5 % (0-4.4); Hematocrit 32.7 % (39.6-49.0); Lymphocytes % 28.5 % (15.3-44.8); MPV 8.6 fL (7.6-11.3); Monocytes % 11.5 % (3.3-12.3); RBC Red Blood Cell Count 4.29 M/uL (4.33-5.43)
[2018-05-18 15:45] LABS: Protime INR 1.05
[2018-05-18 16:00] LABS: ALT/SGPT 16 U/L (12-78); AST/SGOT 16 U/L (15-37); Albumin 3.5 g/dL (3.4-5.0); Alkaline Phosphatase 133 U/L (45-117); BUN Blood Urea Nitrogen 14 mg/dL (7-18); Bicarbonate 26 mmol/L (21-32); Bilirubin Direct < 0.1 mg/dL (0-0.2); Bilirubin Total 0.3 mg/dL (0.2-1.0); Glucose Level 95 mg/dL (74-106); NT PRO-BNP 243 pg/mL (<125); Potassium 3.9 mmol/L (3.5-5.1); Protein, Total 7.6 g/dL (6.4-8.2); Sodium Level 137 mmol/L (136-145); Troponin (Emerg Dept Use Only) < 0.02 ng/mL (0.0-0.045)
--- NOTE | 2018-05-18 16:06 | ER ---
Nurse's Notes [facility] Name: Maurice Morfin Age: 68 yrs Sex: Male : 1950 Arrival Date: 05/18/2018 Time: 14:19 Bed 28 Private MD: Diagnosis: Other chest pain;Dyspnea;Anemia, unspecified Presentation: 05/18 14:21 Presenting complaint: Patient states: Chest pain and shortness of breath that started sg about and hour ago, reports normal BP this morning but unsure of what the BP is now that the pain and shortness of breath has started, reports nausea as well, denies vomiting at this time, also reports a cough that is nonproductive but persistent. Transition of care: patient was not received from another setting of care. Onset of symptoms was May 18, 2018. Risk Assessment: Do you want to hurt yourself or someone else? Patient reports no desire to harm self or others. Initial Sepsis Screen: Does the patient meet any 2 criteria? No. Patient's initial sepsis screen is negative. Does the patient have a suspected source of infection? No. Patient's initial sepsis screen is negative. Care prior to arrival: None. 14:21 Method Of Arrival: Ambulatory sg 14:21 Acuity: WAYLON 3 sg Historical: - Allergies: 14:21 Codeine; sg - Home Meds: 14:21 atorvastatin 80 mg Oral tab 1 tab once daily [Active]; clopidogrel 75 mg Oral tab 1 tab sg once daily [Active]; losartan-hydrochlorothiazide 100-25 mg Oral tab [Active]; Nitroglycerin 0.4 SL Oral [Active]; pantoprazole 40 mg Oral TbEC 1 tab once daily [Active]; tramadol 50 mg Oral tab 1 tab every 4-6 hours [Active]; - PMHx: 14:21 Cholelithiasis; COPD; CVA; Dementia; enlarged prostate; Hernia; FL; Hypertension; PVD; sg TIA; - PSHx: 14:21 Heart stents; Leg stents; leg bypass; Pacemaker; Cholecystectomy; sg - Immunization history:: Adult Immunizations up to date. - Social history:: Smoking status: Patient/guardian denies using tobacco. - Ebola Screening: : Patient negative for fever greater than or equal to 101.5 degrees Fahrenheit, and additional compatible Ebola Virus Disease symptoms Patient denies exposure to infectious person Patient denies travel to an Ebola-affected area in the 21 days before illness onset No symptoms or risks identified at this time. Screenin:36 Abuse screen: Denies threats or abuse. Denies injuries from another. Nutritional mg2 screening: No deficits noted. Tuberculosis screening: No symptoms or risk factors identified. Fall Risk Assessment: 15:20 General: Appears in no apparent distress. comfortable, Behavior is calm, cooperative. mg2 Pain: Complains of pain in chest Pain radiates to left arm Pain currently is 5 out of 10 on a pain scale. Quality of pain is described as aching, Pain began gradually, Is intermittent. Neuro: Level of Consciousness is awake, alert, obeys commands, Oriented to person, place, time, situation. Cardiovascular: Capillary refill < 3 seconds Patient's skin is warm and dry. Chest pain is described as vague, Pain is 8 out of 10 on a pain scale. Respiratory: Reports shortness of breath Airway is patent Respiratory effort is even, unlabored, Respiratory pattern is regular, symmetrical, Breath sounds are clear bilaterally. in right upper lobe, left upper lobe, right middle lobe, left lower lobe and right lower lobe. GI: No signs and/or symptoms were reported involving the gastrointestinal system. : No signs and/or symptoms were reported regarding the genitourinary system. EENT: No signs and/or symptoms were reported regarding the EENT system. Derm: Skin is intact, is healthy with good turgor, Skin is pink, warm \T\ dry. normal. Musculoskeletal: Circulation, motion, and sensation intact. Capillary refill < 3 seconds. 18:00 Reassessment: Patient appears in no apparent distress at this time. No changes from mg2 previously documented assessment. Patient and/or family updated on plan of care and expected duration. Pain level reassessed. patient informed about the need for admission. Vital Signs: 14:22 BP 148 / 76; Pulse 85; Resp 26 S; Temp 97.8; Pulse Ox 100% on R/A; Weight 70.31 kg; sg Height 5 ft. 9 in. (175.26 cm); Pain 8/10; 15:36 BP 140 / 75; Pulse 70; Resp 18; Pulse Ox 100% on R/A; Pain 8/10; mg2 17:16 BP 136 / 65; Pulse 77; Resp 18; Pulse Ox 100% on R/A; mg2 19:02 BP 144 / 75; Pulse 69; Resp 18; Temp 98; Pulse Ox 100% on R/A; mg2 14:22 Body Mass Index 22.89 (70.31 kg, 175.26 cm) ED Course: 14:19 Patient arrived in ED. as 14:22 Triage completed. sg 14:22 Arm band placed on. sg 14:36 EKG done, by aircraft engine technician. reviewed by Caio Cruz MD. 3 14:49 Olman Hutchins RN is Primary Nurse. mg2 14:49 Caio Cruz MD is Attending Physician. john paul 15:00 Missed attempt(s): 20 gauge in right antecubital area. ca1 15:05 Missed attempt(s): 22 gauge in left antecubital area. ca1 15:09 XRAY Chest (1 view) In Process Unspecified. EDMS 15:36 Patient has correct armband on for positive identification. webmethods architect on. Pulse mg2 ox on. NIBP on. 15:36 No provider procedures requiring assistance completed. Inserted saline lock: 20 gauge mg2 in left hand, using aseptic technique. Blood collected. Patient maintains SpO2 saturation greater than 95% on room air. 16:03 Adam Salamanca MD is Hospitalizing Provider. [facility] 19:51 Patient admitted, IV remains in place. mg2 Administered Medications: 16:17 Drug: Lovenox 70 mg Route: Sub-Q; Site: left upper abdomen; mg2 19:12 Follow up: Response: No adverse reaction mg2 16:17 Drug: Pepcid 20 mg Route: IVP; Site: left hand; mg2 19:12 Follow up: Response: No adverse reaction; Marked relief of symptoms mg2 Outcome: 16:05 Decision to Hospitalize by Provider. john paul 19:51 Admitted to Tele accompanied by tech, via wheelchair, room 423, with chart, Report mg2 called to JAVAN Avendano 19:51 Condition: stable 19:51 Instructed on the need for admit, Demonstrated understanding of instructions. 20:08 Patient left the ED. mg2 Signatures: Dispatcher [employer] EDMS Sim Azul, JAVAN RN Caio Paz MD MD cha Martinez, Amelia as Olman Hutchins RN RN mg2 Mary Jo Child 3 Renea Shafer RN RN ca1 Corrections: (The following items were deleted from the chart) 14:24 14:21 Presenting complaint: Patient states: Chest pain and shortness of breath that sg started about and hour ago, reports normal BP this morning but unsure of what the BP is now that the pain and shortness of breath has started, reports nausea as well, denies vomiting at this time sg
--- NOTE | 2018-05-18 16:08 | EDPHYS ---
Physician Documentation [facility] Name: Maurice Morfin Age: 68 yrs Sex: Male : 1950 Arrival Date: 05/18/2018 Time: 14:19 Bed 28 Private MD: ED Physician Caio Cruz HPI: 05/18 16:01 This 68 yrs old Male presents to ER via Ambulatory with complaints of Chest john paul Pain, Shortness Of Breath. 16:01 The patient or guardian reports chest pain that is located primarily in the anterior john paul chest wall, left. Onset: 1 day(s) ago. The pain does not radiate. Associated signs and symptoms: Pertinent positives: shortness of breath. The chest pain is described as a heaviness, sharp. Duration: The patient or guardian reports multiple episodes, with no pattern. Severity of pain: At its worst the pain was mild in the emergency department the pain is unchanged. The patient has not experienced similar symptoms in the past. Historical: - Allergies: 14:21 Codeine; sg - Home Meds: 14:21 atorvastatin 80 mg Oral tab 1 tab once daily [Active]; clopidogrel 75 mg Oral tab 1 tab sg once daily [Active]; losartan-hydrochlorothiazide 100-25 mg Oral tab [Active]; Nitroglycerin 0.4 SL Oral [Active]; pantoprazole 40 mg Oral TbEC 1 tab once daily [Active]; tramadol 50 mg Oral tab 1 tab every 4-6 hours [Active]; - PMHx: 14:21 Cholelithiasis; COPD; CVA; Dementia; enlarged prostate; Hernia; SD; Hypertension; PVD; sg TIA; - PSHx: 14:21 Heart stents; Leg stents; leg bypass; Pacemaker; Cholecystectomy; sg - Immunization history:: Adult Immunizations up to date. - Social history:: Smoking status: Patient/guardian denies using tobacco. - Ebola Screening: : Patient negative for fever greater than or equal to 101.5 degrees Fahrenheit, and additional compatible Ebola Virus Disease symptoms Patient denies exposure to infectious person Patient denies travel to an Ebola-affected area in the 21 days before illness onset No symptoms or risks identified at this time. ROS: 16:01 Constitutional: Negative for fever, chills, and weight loss, Eyes: Negative for injury, john paul pain, redness, and discharge, ENT: Negative for injury, pain, and discharge, Neck: Negative for injury, pain, and swelling, Respiratory: Negative for shortness of breath, cough, wheezing, and pleuritic chest pain, Abdomen/GI: Negative for abdominal pain, nausea, vomiting, diarrhea, and constipation, Back: Negative for injury and pain, : Negative for injury, bleeding, discharge, and swelling, MS/Extremity: Negative for injury and deformity, Skin: Negative for injury, rash, and discoloration, Neuro: Negative for headache, weakness, numbness, tingling, and seizure, Psych: Negative for depression, anxiety, suicide ideation, homicidal ideation, and hallucinations, Allergy/Immunology: Negative for hives, rash, and allergies, Endocrine: Negative for neck swelling, polydipsia, polyuria, polyphagia, and marked weight changes, Hematologic/Lymphatic: Negative for swollen nodes, abnormal bleeding, and unusual bruising. 16:01 Cardiovascular: Positive for chest pain, of the chest. Exam: 16:01 Constitutional: This is a well developed, well nourished patient who is awake, alert, john paul and in no acute distress. Head/Face: Normocephalic, atraumatic. Eyes: Pupils equal round and reactive to light, extra-ocular motions intact. Lids and lashes normal. Conjunctiva and sclera are non-icteric and not injected. Cornea within normal limits. Periorbital areas with no swelling, redness, or edema. ENT: Nares patent. No nasal discharge, no septal abnormalities noted. Tympanic membranes are normal and external auditory canals are clear. Oropharynx with no redness, swelling, or masses, exudates, or evidence of obstruction, uvula midline. Mucous membranes moist. Neck: Trachea midline, no thyromegaly or masses palpated, and no cervical lymphadenopathy. Supple, full range of motion without nuchal rigidity, or vertebral point tenderness. No Meningismus. Chest/axilla: Normal chest wall appearance and motion. Nontender with no deformity. No lesions are appreciated. Cardiovascular: Regular rate and rhythm with a normal S1 and S2. No gallops, murmurs, or rubs. Normal PMI, no JVD. No pulse deficits. Respiratory: Lungs have equal breath sounds bilaterally, clear to auscultation and percussion. No rales, rhonchi or wheezes noted. No increased work of breathing, no retractions or nasal flaring. Abdomen/GI: Soft, non-tender, with normal bowel sounds. No distension or tympany. No guarding or rebound. No evidence of tenderness throughout. Back: No spinal tenderness. No costovertebral tenderness. Full range of motion. Male : Normal genitalia with no discharge or lesions. Skin: Warm, dry with normal turgor. Normal color with no rashes, no lesions, and no evidence of cellulitis. MS/ Extremity: Pulses equal, no cyanosis. Neurovascular intact. Full, normal range of motion. Neuro: Awake and alert, GCS 15, oriented to person, place, time, and situation. Cranial nerves II-XII grossly intact. Motor strength 5/5 in all extremities. Sensory grossly intact. Cerebellar exam normal. Normal gait. Psych: Awake, alert, with orientation to person, place and time. Behavior, mood, and affect are within normal limits. Vital Signs: 14:22 BP 148 / 76; Pulse 85; Resp 26 S; Temp 97.8; Pulse Ox 100% on R/A; Weight 70.31 kg; sg Height 5 ft. 9 in. (175.26 cm); Pain 8/10; 15:36 BP 140 / 75; Pulse 70; Resp 18; Pulse Ox 100% on R/A; Pain 8/10; mg2 17:16 BP 136 / 65; Pulse 77; Resp 18; Pulse Ox 100% on R/A; mg2 19:02 BP 144 / 75; Pulse 69; Resp 18; Temp 98; Pulse Ox 100% on R/A; mg2 14:22 Body Mass Index 22.89 (70.31 kg, 175.26 cm) MDM: 14:49 Patient medically screened. [facility] 16:02 Data reviewed: vital signs, nurses notes, lab test result(s), EKG, radiologic studies, [facility] plain films. 05/18 14:50 Order name: Basic Metabolic Panel; Complete Time: 17:14 mg2 05/18 14:50 Order name: CBC with Diff; Complete Time: 17:14 mg2 05/18 14:50 Order name: LFT's; Complete Time: 17:14 mg2 05/18 14:50 Order name: Magnesium; Complete Time: 17:14 mg2 05/18 14:50 Order name: NT PRO-BNP; Complete Time: 17: mg2 05/18 14:50 Order name: PT-INR; Complete Time: 16:00 mg2 05/18 14:50 Order name: Troponin (emerg Dept Use Only); Complete Time: 17:14 mg2 05/18 14:50 Order name: XRAY Chest (1 view); Complete Time: 16:00 mg2 05/18 14:50 Order name: EKG; Complete Time: 14:50 mg2 05/18 14:50 Order name: Cardiac monitoring; Complete Time: 15:37 mg2 05/18 15:39 Order name: CBC Smear Scan; Complete Time: 17:14 EDMS 05/18 16:01 Order name: Lipase; Complete Time: 17:14 john paul 05/18 14:50 Order name: EKG - Nurse/Tech; Complete Time: 15:37 mg2 05/18 14:50 Order name: IV Saline Lock; Complete Time: 15:37 mg2 05/18 14:50 Order name: Labs collected and sent; Complete Time: 15:37 mg2 05/18 14:50 Order name: O2 Per Protocol; Complete Time: 15:37 mg2 05/18 14:50 Order name: O2 Sat Monitoring; Complete Time: 15:37 mg2 05/18 19:12 Order name: EKG - Nurse/Tech; Complete Time: 19:13 mg2 Administered Medications: 16:17 Drug: Lovenox 70 mg Route: Sub-Q; Site: left upper abdomen; mg2 19:12 Follow up: Response: No adverse reaction mg2 16:17 Drug: Pepcid 20 mg Route: IVP; Site: left hand; mg2 19:12 Follow up: Response: No adverse reaction; Marked relief of symptoms mg2 Disposition: 05/18/18 16:05 Hospitalization ordered by Adam Salamanca for Observation. Preliminary diagnosis are Other chest pain, Dyspnea, Anemia, unspecified. - Bed requested for Telemetry/MedSurg (observation). - Status is Observation. mg2 - Condition is Fair. - Problem is new. - Symptoms have improved. UTI on Admission? No Signatures: Dispatcher [employer] EDBrina Nielson Steven, JAVAN RN Caio Paz MD MD cha Gardose, Michele, RN RN mg2 Corrections: (The following items were deleted from the chart) 17:15 16:05 Hospitalization Ordered by Adam Salamanca MD for Observation. Preliminary diagnosis john paul is Other chest pain; Dyspnea. Bed requested for Telemetry/MedSurg (observation). Status is Observation. Condition is Fair. Problem is new. Symptoms have improved. UTI on Admission? No. john paul 18:33 17:15 05/18/2018 16:05 Hospitalization Ordered by Adam Salamanca MD for Observation. bd Preliminary diagnosis is Other chest pain; Dyspnea; Anemia, unspecified. Bed requested for Telemetry/MedSurg (observation). Status is Observation. Condition is Fair. Problem is new. Symptoms have improved. UTI on Admission? No. john paul 20:08 18:33 05/18/2018 16:05 Hospitalization Ordered by Adam Salamanca MD for Observation. mg2 Preliminary diagnosis is Other chest pain; Dyspnea; Anemia, unspecified. Bed requested for Telemetry/MedSurg (observation). Status is Observation. Condition is Fair. Problem is new. Symptoms have improved. UTI on Admission? No. bd
[2018-05-18] MEDS ORDERED: ENOXAPARIN 80 MG/0.8 ML SQ ONE (16:15)
[2018-05-18] MEDS ORDERED: FAMOTIDINE 20 MG/2 ML VIAL IV ONE (16:15)
[2018-05-18 16:33] LABS: Anisocytosis 1+; Blood Morphology Comment NOTED (NOT SEEN); Macrocytosis 1+; Ovalocytes 1+; Platelet Estimate ADEQ; Poikilocytosis 1+; Urine White Blood Cell Casts OK
[2018-05-18 20:24] VITALS: BMI 20.9
[2018-05-19] MEDS ORDERED: MORPHINE 4 MG/ML SYR IV PRN (00:12)
[2018-05-19] MEDS ORDERED: ACETAMINOPHEN 500 MG TAB PO PRN (00:12)
[2018-05-19] MEDS ORDERED: METHYLPREDNISOLONE 125 MG INJ IV ONE (02:29)
[2018-05-19] MEDS: TRAMADOL HCL 50 MG TAB PO PRN ×2 (02:46→21:11)
[2018-05-19] MEDS: ALPRAZOLAM 0.25 MG TABLET PO PRN ×2 (04:42→23:47)
[2018-05-19 04:52] LABS: Absolute Monocytes 0.2 K/uL (0.1-1.3); Absolute Neutrophil 3.1 K/uL (1.8-8.0); Basophils % 1.6 % (0-1.3); Eosinophils % 2.6 % (0-4.4); Hematocrit 27.8 % (39.6-49.0); Lymphocytes % 22.1 % (15.3-44.8); MPV 8.6 fL (7.6-11.3); Monocytes % 4.9 % (3.3-12.3); RBC Red Blood Cell Count 3.61 M/uL (4.33-5.43)
[2018-05-19 05:17] LABS: Bilirubin Total 0.5 mg/dL (0.2-1.0); Potassium 4.2 mmol/L (3.5-5.1); Protein, Total 6.4 g/dL (6.4-8.2)
[2018-05-19 06:07] LABS: Phosphorus 2.9 mg/dL (2.5-4.9)
[2018-05-19] MEDS ORDERED: PNEUMOCOCCAL VACCINE 0.5 ML IMVAC ONE (08:00)
[2018-05-19] MEDS ORDERED: REGADENOSON 0.4 MG/5 ML SYR IV ONE (08:22)
[2018-05-19] MEDS: METOPROLOL TAR 50 MG TAB PO SCH ×2 (09:00→21:08)
[2018-05-19] MEDS ORDERED: HOME MED 1 EA UNK (Losartan/Hydrochlorothiazide [Losartan-Hctz 100-25 Mg Tab] 1 TAB) PO SCH (09:00)
--- NOTE | 2018-05-19 09:07 | CON ---
History Of Present Illness: Mr. Morfin is 68 years old. He came to the hospital with chest pain. His history is very hard to pin down. I am very suspicious that Mr. Morfin changes his story to s uit his needs at the moment. He described his chest pain in various different ways. First, he said it was one spell of pain, lasted 3 minutes, went away. Next, he said, as soon as it went away, it ca me back several times, then he said he has been in constant pain all night, and then again he said he is not in pain right now, so it is very hard to get Mr. Morfin to stay consistent with a history. He has a history of cardiac cath in 2016 that was normal, perfectly normal coronary arteries. He di d have iliac artery disease, we put stents in that, and according to the physical exam and pulses and Doppler studies, that has remained good. Mr. Morfin also has a pacemaker. Medications: As an outpatient, he takes atorvastatin, gabapentin, losartan, hydrochlorothiazide, nit roglycerin, Protonix, tramadol, and Plavix. Allergies: HE HAS NO ALLERGIES. Social History: He was a smoker, but has quit. Physical Examination: Vital Signs: 5 feet 9 inches, 141 pounds. HEENT: Normal. Lungs: Clear. Carotids: No bruit. Heart: Within normal limits. Extremities: Normal pulses in both feet. Laboratory Data: His hemoglobin is 9.0, it was 10.6 yesterday, and I think we need to be concerned h e may be losing blood. His BUN and creatinine are normal, blood sugars normal, and troponins are nor mal. Impression: I believe Mr. Morfin is not an unstable angina patient. I will ask him to undergo a p harmacologic nuclear stress test. KARAN/REGINA Voice ID: [id number] Report ID: [id number]
[2018-05-19] MEDS: LOSARTAN/HCTZ 50-12.5 PO SCH (09:46)
[2018-05-19] MEDS: PANTOPRAZOLE 40MG TABLET PO SCH (09:47)
[2018-05-19] MEDS: ASPIRIN EC 81 MG TAB PO SCH (09:47)
[2018-05-19] MEDS: CLOPIDOGREL 75 MG TABLET PO SCH (09:47)
[2018-05-19] MEDS: GABAPENTIN 300 MG CAP PO SCH ×3 (09:47→21:09)
--- NOTE | 2018-05-19 10:26 | P.HP ---
Certification for Inpatient Patient admitted to: Observation With expected LOS: <2 Midnights Patient will require the following post-hospital care: None Practitioner: I am a practitioner with admitting privileges, knowledge of patient current condition, hospital course, and medical plan of care. Services: Services provided to patient in accordance with Admission requirements found in Title 42 Section 412.3 of the Code of Federal Regulations Patient History Date of Service: 05/18/18 Reason for admission: Chest pain rule out acute coronary syndrome History of Present Illness: Patient is a 68-year-old gentleman who came to the hospital with chest discomfort. Pain was mainly in the sternal region. He was given multiple medications in the ER with no relief. His troponins and EKG were unremarkable. He had a recent cardiac catheterization but he does not know the results. Patient was admitted to the hospital for observation. He has had a prior pacemaker as well as stent placement. He has had peripheral arterial stents as well. Will Consult Cardiology to discuss his best treatment option. Allergies No Known Drug Allergies Allergy (Verified 08/11/17 23:36) Unknown Home Medications: Atorvastatin Calcium [Lipitor] 80 mg PO BEDTIME 05/18/18 Clopidogrel Bisulfate [Plavix] 75 mg PO DAILY 05/18/18 Gabapentin 300 mg PO TID 05/18/18 Losartan/Hydrochlorothiazide [Losartan-Hctz 100-25 mg Tab] 1 tab PO DAILY Nitroglycerin 0.4 mg SL DIRECTED PRN 05/18/18 Pantoprazole Sodium 40 mg PO DAILY 05/18/18 traMADol HCL [Ultram*] 50 mg PO Q6HP PRN 05/18/18 - Past Medical/Surgical History Has patient received pneumonia vaccine in the past: No Diabetic: No -: COPD -: Pneumonia - childhood -: Skin CA - arms -: Spinal meningitis - childhood -: [place] -: Stroke -: BPH -: HTN -: Dementia -: Hernia -: PACEMAKER PLACEMENT -: STENT PLACEMENT (HEART AND RIGHT LEG) -: HERNIA REPAIR - L. side -: REMOVED skin CANCERS L arm -: pacemaker -: gallbladder removal - Family History Mother Medical History: Heart disease, Hypertension, Stroke, Cancer, Other (see notes) Notes: ovarian CA Father Medical History: Lung disease - Social History Smoking Status: Current every day smoker Alcohol use: No CD- Drugs: No Caffeine use: Yes Place of Residence: Home Review of Systems 10-point ROS is otherwise unremarkable Physical Examination - Vital Signs Temperature: 97.0 F Blood Pressure: 136/71 Pulse: 67 Respirations: 20 Pulse Ox (%): 98 - Physical Exam General: Alert, In no apparent distress, Oriented x3 HEENT: Atraumatic, PERRLA, Mucous membr. moist/pink, EOMI, Sclerae nonicteric Neck: Supple, 2+ carotid pulse no bruit, No LAD, Without JVD or thyroid abnormality Respiratory: Clear to auscultation bilaterally, Normal air movement Cardiovascular: Regular rate/rhythm, Normal S1 S2, No murmurs Gastrointestinal: Normal bowel sounds, Soft and benign, Non-distended, No tenderness, No rebound, No guarding Musculoskeletal: No clubbing, No swelling, No tenderness Integumentary: No rashes Neurological: Normal gait, Normal speech, Normal strength at 5/5 x4 extr, Normal tone, Sensation intact, Cranial nerves 3-12 intact, Normal affect Lymphatics: No axilla or inguinal lymphadenopathy - Studies Laboratory Data (last 24 hrs) 05/18/18 15:25: Lipase 159 05/18/18 15:25: PT 12.4, INR 1.05 05/18/18 15:25: WBC 4.9, Hgb 10.6 L, Hct 32.7 L, Plt Count 209 05/18/18 15:25: Sodium 137, Potassium 3.9, BUN 14, Creatinine 0.92, Glucose 95, Magnesium 2.0, Total Bilirubin 0.3, AST 16, ALT 16, Alkaline Phosphatase 133 H Assessment & Plan - Problems (Diagnosis) (1) AVM (arteriovenous malformation) of stomach, acquired Current Visit: No Status: Chronic (2) CAD (coronary artery disease) Onset Date: 10/18/15 Current Visit: No Status: Chronic Qualifiers: (3) COPD (chronic obstructive pulmonary disease) Onset Date: 10/18/15 Current Visit: No Status: Chronic Qualifiers: (4) Fatty liver Current Visit: No Status: Chronic (5) GERD (gastroesophageal reflux disease) Current Visit: No Status: Chronic Qualifiers: (6) HTN (hypertension) Onset Date: 12/02/16 Current Visit: No Status: Chronic Qualifiers: (7) Hyperlipidemia Current Visit: No Status: Chronic Qualifiers: (8) Nicotine dependence Current Visit: No Status: Chronic Qualifiers: (9) PVD (peripheral vascular disease) Onset Date: 10/18/15 Current Visit: No Status: Chronic (10) Prostatic hypertrophy, benign, with obstruction Onset Date: 10/18/15 Current Visit: No Status: Chronic (11) Pulmonary fibrosis Onset Date: 01/12/14 Current Visit: No Status: Chronic (12) Severe peripheral arterial disease Current Visit: No Status: Chronic (13) Tobacco abuse Current Visit: No Status: Chronic (14) Chest pain Onset Date: 07/12/15 Current Visit: No Status: Resolved Qualifiers: - Plan 1. Serial troponins and EKG 2. Cardiology consultation 3. Echocardiogram and stress test if cardiology is agreeable 4. Anti-platelet therapy, anti coagulation, beta-brandi, statin, and O2 as needed 5. IV morphine for pain 6. Nitro p.r.n. 7. Statin therapy 8. DVT prophylaxis Discharge Plan: Home Plan to discharge in: Greater than 2 days - Advance Directives Does patient have a Living Will: No Does patient have a Durable POA for Healthcare: No - Code Status/Comfort Care Code Status Assessed: Yes Code Status: Full Code Critical Care: No Time Spent Managing PTS Care (In Minutes): 50
--- NOTE | 2018-05-19 10:34 | EKG ---
Test Date: 2018-05-18 Test Time: 14:25:15 Song Lyricist: EWA MEASUREMENT RESULTS: Intervals: Rate: 79 IL: 164 QRSD: 80 QT: 358 QTc: 410 [place]: P: 65 IL: 164 QRS: 47 T: 55 INTERPRETIVE STATEMENTS: Normal sinus rhythm Nonspecific ST abnormality Abnormal ECG Compared to ECG 02/14/2018 09:27:51 ST (T wave) deviation now present T-wave abnormality no longer present Electronically Signed On 05-18-18 17:47:32 CDT by Epifanio Gonzalez
--- NOTE | 2018-05-19 10:38 | EKG ---
Test Date: 2018-05-18 Test Time: 19:08:26 Hand Sole Sewer: MEASUREMENT RESULTS: Intervals: Rate: 60 ND: 158 QRSD: 84 QT: 382 QTc: 382 [place]: P: ND: 158 QRS: 49 T: 60 INTERPRETIVE STATEMENTS: Electronic atrial pacemaker Compared to ECG 05/18/2018 14:25:15 Sinus rhythm no longer present ST (T wave) deviation no longer present Electronically Signed On 05-19-18 08:14:10 CDT by Epifanio Gonzalez
--- NOTE | 2018-05-19 12:37 | TREADPHA ---
DX: CHEST PAIN Date of Study: 05/19/18 Ht: 5 9 Wt: 141 lb 12.8 oz Consulting Physician: CHARLES MEDICATIONS: TYLENOL, XANAX, ASPIRIN, LIPITOR, PLAVIX, LOPRESSOR, HYZAAR HISTORY: 68 YEAR OLD MALE WITH COMPLAINTS OF CHEST PAIN. HISTORY: COPD, CEREBRAL VASCULAR ACCIDENT, DEMENTIA, ENLARGED PROSTATE, HERNIA, MYOCARDIAL INFARCTION, HYPERTENSION, DEEP VEIN THRMOBOSIS, TRANSIENT ISCHEMIC ATTACK, HEART STENTS 2003, LEG STENTS, LEG BYPASS-2005, SMOKER 2 CIGARETTES DAILY, NON-DRINKER. PHYSICIAL EXAMINATION: RESTING B.P.: 144/77 RESTING H.R.: 61 RESTING EKG: SINUS, LEFT VENTRICULAR HYPERTROPHY PROTOCOL: LEXISCAN EXERCISE TIME: 3:30 B.P. AT PEAK STRESS: 123/73 IMPRESSION: LEXISCAN INJECTED, FOLLOWED BY CARDIOLITE PER PROTOCOL. NO SUPRA VENTRICULAR TACHYCARDIA, NO VENTRICULAR TACHYCARDIA, NO PREMATURE ATRIAL COMPLEXES, NO PREMATURE VENTRICULAR COMPLEXES. SEE NUCLEAR MEDICINE REPORT. NO NEW CHEST PAIN REPORTED. NON DIAGNOSTIC EKG WITH LEXISCAN STRESS.
--- NOTE | 2018-05-19 12:49 | RAD REPORT ---
EXAM DESCRIPTION: NM - Rest Stress Cardiac Imaging - 05/19/2018 12:43 pm CLINICAL HISTORY: CP Chest pain. COMPARISON: Rest Stress Cardiac Imaging dated 07/12/2017 TECHNIQUE: The patient was administered approximately 10mCi of Tc 99m Sestamibi prior to resting SPE CT imaging of the heart. The patient was then administered approximately 30 mCi of Tc 99m Sestamibi f ollowing exercise or pharmacologic stress. Multiplanar SPECT images were reviewed. FINDINGS: No stress induced ischemic defect is seen to suggest stress induced ischemia. No fixed def ect is seen to suggest hibernating myocardium or scarred myocardium. The end diastolic volume is 62 ml, the end systolic volume is 16 ml, and the ejection fraction is 74 %. IMPRESSION: No stress induced ischemia.
--- NOTE | 2018-05-19 17:06 | ECHO ---
HEIGHT: 5 ft 9 in WEIGHT: 141 lb 12.8 oz DATE OF STUDY: 05/19/[address]: Zeferino Bradshaw MD 2-DIMENSIONAL: YES M.MODE: YES DOPPLER: YES COLOR FLOW: YES TDS: PORTABLE: DEFINITY: BUBBLE STUDY: DIAGNOSIS: CONGESTIVE HEART FAILURE CARDIAC HISTORY: CATHERIZATION: YES SURGERY: YES PROSTHETIC VALVE: NO PACEMAKER: YES MEASUREMENTS (cm) DIASTOLIC (NORMALS) SYSTOLIC (NORMALS) IVSd 1.2 (0.6-1.2) LA Diam 3.2 (1.9-4.0) LVEF 65% LVIDd 4.1 (3.5-5.7) LVIDs 2.7 (2.0-3.5) %FS 36% LVPWd 1.1 (0.6-1.2) Ao Diam 2.9 (2.0-3.7) 2 DIMENSIONAL ASSESSMENT: RIGHT ATRIUM: NORMAL LEFT ATRIUM: NORMAL RIGHT VENTRICLE: NORMAL LEFT VENTRICLE: NORMAL TRICUSPID VALVE: NORMAL MITRAL VALVE: NORMAL PULMONIC VALVE: NORMAL AORTIC VALVE: NORMAL PERICARDIAL EFFUSION: NONE AORTIC ROOT: NORMAL LEFT VENTRICULAR WALL MOTION: NORMAL DOPPLER/COLOR FLOW: MILD TRICUSPID REGURGITATION. NORMAL RIGHT VENTRICULAR SYSTOLIC PRESSURE. COMMENTS: NORMAL TWO DIMENSIONAL ECHOCARDIOGRAM. MILD TRICUSPID REGURGITATION. TECHNOLOGIST: MOSES PEARSON
--- NOTE | 2018-05-19 18:24 | P.PN ---
Subjective Date of Service: 05/19/18 Chief Complaint: Chest pain rule out acute coronary syndrome Subjective: No C/O voiced, Improving Review of Systems 10-point ROS is otherwise unremarkable Physical Examination - Vital Signs Temperature: 97.2 F Blood Pressure: 128/62 Pulse: 60 Respirations: 20 Pulse Ox (%): 98 - Physical Exam General: Alert, In no apparent distress, Oriented x3 HEENT: Atraumatic, PERRLA, EOMI Neck: Supple, JVD not distended Respiratory: Clear to auscultation bilaterally, Normal air movement Cardiovascular: Regular rate/rhythm, Normal S1 S2 Gastrointestinal: Normal bowel sounds, No tenderness Musculoskeletal: No tenderness Integumentary: No rashes Neurological: Normal speech, Normal tone, Normal affect Lymphatics: No axilla or inguinal lymphadenopathy Assessment And Plan - Current Problems (Diagnosis) (1) Peripheral arterial disease Current Visit: Yes Status: Acute (2) CAD (coronary artery disease) Onset Date: 08/12/17 Current Visit: No Status: Acute (3) Chest pain Onset Date: 10/15/15 Current Visit: No Status: Acute Qualifiers: Chest pain type: unspecified Qualified Code(s): R07.9 - Chest pain, unspecified (4) Hypertension Onset Date: 08/12/17 Current Visit: No Status: Acute (5) Near syncope Onset Date: 05/18/16 Current Visit: No Status: Acute (6) SOB (shortness of breath) Onset Date: 07/12/15 Current Visit: No Status: Acute (7) AVM (arteriovenous malformation) of stomach, acquired Current Visit: No Status: Chronic - Plan 1. Serial troponins and EKG 2. Cardiology consultation, recommendations appreciated. Pending stress test. 3. Echocardiogram and stress test if cardiology is agreeable 4. Anti-platelet therapy, anti coagulation, beta-brandi, statin, and O2 as needed 5. IV morphine for pain 6. Nitro p.r.n. 7. Statin therapy 8. DVT prophylaxis Possible discharge in the next 24-48 hours Discharge Plan: Home Plan to discharge in: 24 Hours
[2018-05-19] MEDS ORDERED: ATORVASTATIN 80 MG TAB PO SCH (21:00)
[2018-05-20] MEDS: PANTOPRAZOLE 40MG TABLET PO SCH (08:13)
[2018-05-20] MEDS: METOPROLOL TAR 50 MG TAB PO SCH (08:13)
[2018-05-20] MEDS: ASPIRIN EC 81 MG TAB PO SCH (08:13)
[2018-05-20] MEDS: LOSARTAN/HCTZ 50-12.5 PO SCH (08:13)
[2018-05-20] MEDS: CLOPIDOGREL 75 MG TABLET PO SCH (08:13)
[2018-05-20] MEDS: GABAPENTIN 300 MG CAP PO SCH ×2 (08:13→14:00)
[2018-05-20 13:10] VITALS: O2SAT 97
[2018-05-20 13:13] VITALS: BP 117/60; TEMP 97.6
--- NOTE | 2018-05-20 16:38 | P.SSS ---
Patient History Date of Service: 05/20/18 Reason for admission: Chest pain rule out acute coronary syndrome History of Present Illness: Patient is a 68-year-old gentleman who came to the hospital with chest discomfort. Pain was mainly in the sternal region. He was given multiple medications in the ER with no relief. His troponins and EKG were unremarkable. He had a recent cardiac catheterization but he does not know the results. Patient was admitted to the hospital for observation. He has had a prior pacemaker as well as stent placement. He has had peripheral arterial stents as well. Will Consult Cardiology to discuss his best treatment option. Allergies No Known Drug Allergies Allergy (Verified 08/11/17 23:36) Unknown Home Medications: Atorvastatin Calcium [Lipitor] 80 mg PO BEDTIME 05/18/18 Clopidogrel Bisulfate [Plavix*] 75 mg PO DAILY 05/18/18 Gabapentin 300 mg PO TID 05/18/18 Losartan/Hydrochlorothiazide [Losartan-Hctz 100-25 mg Tab] 1 tab PO DAILY Nitroglycerin 0.4 mg SL DIRECTED PRN 05/18/18 Pantoprazole Sodium 40 mg PO DAILY 05/18/18 traMADol HCL [Ultram*] 50 mg PO Q6HP PRN 05/18/18 - Past Medical/Surgical History Has patient received pneumonia vaccine in the past: No Diabetic: No -: COPD -: Pneumonia - childhood -: Skin CA - arms -: Spinal meningitis - childhood -: OK -: Stroke -: BPH -: HTN -: Dementia -: Hernia -: PACEMAKER PLACEMENT -: STENT PLACEMENT (HEART AND RIGHT LEG) -: HERNIA REPAIR - L. side -: REMOVED skin CANCERS L arm -: pacemaker -: gallbladder removal - Family History Mother -: Heart disease, Hypertension, Stroke, Cancer, Other (see notes) Notes: ovarian CA Father -: Lung disease - Social History Smoking Status: Current every day smoker Alcohol use: No CD- Drugs: No Caffeine use: Yes Place of Residence: Home Review of Systems 10-point ROS is otherwise unremarkable Physical Examination - Vital Signs Temperature: 97.6 F Blood Pressure: 117/60 Pulse: 61 Respirations: 16 Pulse Ox (%): 97 - Physical Exam General: Alert, In no apparent distress, Oriented x3 HEENT: Atraumatic, PERRLA, Mucous membr. moist/pink, EOMI, Sclerae nonicteric Neck: Supple, 2+ carotid pulse no bruit, No LAD, Without JVD or thyroid abnormality Respiratory: Clear to auscultation bilaterally, Normal air movement Cardiovascular: Regular rate/rhythm, Normal S1 S2 Gastrointestinal: Normal bowel sounds, No tenderness Musculoskeletal: No tenderness Integumentary: No rashes Neurological: Normal gait, Normal speech, Normal strength at 5/5 x4 extr, Normal tone, Normal affect Lymphatics: No axilla or inguinal lymphadenopathy - Diagnosis (Problem(s)) (1) Peripheral arterial disease Status: Acute (2) CAD (coronary artery disease) Onset Date: 08/12/17 Status: Acute (3) Chest pain Onset Date: 10/15/15 Status: Acute Qualifiers: Chest pain type: unspecified Qualified Code(s): R07.9 - Chest pain, unspecified (4) Hypertension Onset Date: 08/12/17 Status: Acute (5) Near syncope Onset Date: 05/18/16 Status: Acute (6) SOB (shortness of breath) Onset Date: 07/12/15 Status: Acute (7) AVM (arteriovenous malformation) of stomach, acquired Status: Chronic Treatment Summary: Patient was admitted for chest pain rule out due to his prior cardiac history. His troponins were negative x3, EKG without any acute abnormalities. Cardiology was consulted, stress test and echocardiogram was recommended. Both of which were negative. He was then cleared for discharge from cardiology point of view. Patient with some anemia that was noted. No evidence of active bleeding. Patient with a recent full GI workup in, including colonoscopy and endoscopy. He was instructed to follow up with outpatient GI, Dr. Aleman. At the time of discharge, patient is alert oriented x3, in no acute distress and chest pain had resolved. He was then discharged in a stable manner. No medication changes were made. He remained hemodynamically stable throughout the stay. - Disposition Discharge Date: 05/20/18 Disposition: ROUTINE DISCHARGE Condition: GOOD Consultations: Cardiology Patient Discharge Instructions: Please follow up with your primary care physician in 2-3 days. Please follow up with Dr. Aleman for follow up for Gastroenterology. Please follow up with Dr. Quevedo for cardiology follow up. Please return to the Emergency Room for worsening symptoms. Diet: AHA Activity: Ad yvonne Time Spent Managing Pts Care (In Minutes): 55
== END 2018-05-20 14:00 | disposition home or self-care (01) ==
LOC: ER 14:19 → ERHOLD 18:17 → 4TH 19:58
PROVIDERS: ADMIT Family Medicine; ATTEND Hospitalist
DX: R07.9 Chest pain, unspecified (principal); R55 Syncope and collapse; I10 Essential (primary) hypertension; I25.10 Atherosclerotic heart disease of native coronary artery without angina pectoris; I73.9 Peripheral vascular disease, unspecified; K31.819 Angiodysplasia of stomach and duodenum without bleeding; J44.9 Chronic obstructive pulmonary disease, unspecified; Z86.73 Personal history of transient ischemic attack (TIA), and cerebral infarction without residual deficits; I25.2 Old myocardial infarction; Z95.0 Presence of cardiac pacemaker; Z95.5 Presence of coronary angioplasty implant and graft
CPT/HCPCS: 93005 ×2; 93017; 93306; 87070; 85025 ×2; 80048; 36415; 83735; 87205; 84100; 85610; 80061; 80076; 84484 ×3; 83690; 80053; 83880; 71045; 94760 ×3; 78452; 96372; 96374; 99285; J1650; J2785; J2930; A9500; G0378 ×2

== ENCOUNTER 2018-05-28 14:36 | Emergency (ER) | payer OTHER ==
--- OUTSIDE RECORDS SUMMARY | 2018-05-28 14:40 | XMS REPORT | Clinical Summary ---
:1950 Demographics Address [address] [place] [address] Home Phone Mobile Phone Preferred Language Swedish Marital Status Unknown Amish Affiliation Unknown Race White Ethnic Group Not or Author Organization [facility] Address [address] [place] [address] Support Name Relationship Address Phone Mami Pena [address] [place] [address] Kvng Pena [address] [place] [address] Care Team Providers Name Role Phone Yung [...] Postoperative anemia 01/14/2016 Coronary artery disease involving kaibab coronary artery 01/10/2016 PAD (peripheral artery disease) [...] Dx); 04/10/2018 DO PVD (peripheral vascular disease) ([facility]); Devante Rodriguez Current smoker; MD Luis Hypertensive urgency 04/06/2018 Travel 11/30/2017 - Hospital Encounter Intensive Care Eze Gil ACS (acute coronary 12/02/2017 MD Jose syndrome) ([facility]LY [facility]) after 05/27/2017 Family History Medical History Relation Name Comments [...] Taken Blood Pressure 147/67 04/09/2018 3:23 PM CONTROL OPERATOR [employer]OW COAT Pulse 60 04/09/2018 3:23 PM CONTROL OPERATOR [employer]OW COAT Temperature 36.4 C (97.6 F) 04/09/2018 3:23 PM CONTROL OPERATOR [employer]OW COAT Respiratory Rate 18 04/09/2018 3:23 PM CONTROL OPERATOR FLOW COAT Oxygen Saturation 97% 04/09/2018 3:23 PM CONTROL OPERATOR FLOW COAT Inhaled Oxygen Concentration - - Weight 69.7 kg (153 lb 9.6 oz) 04/08/2018 6:29 AM CONTROL OPERATOR FLOW COAT Height 175.3 cm (5' 9") 04/06/2018 1:19 PM CONTROL OPERATOR [employer]OW COAT Body Mass Index 22.68 04/08/2018 6:29 AM CONTROL OPERATOR FLOW COAT Plan of Treatment Not on file Implants Implanted Type Area Ore Charger Device Shelf Model / Identifier Expiration Serial / Date Lot Grft Eptfe-Heparin Rng [id number] - [id number] Graft/Pa N/A: MARIELENA PRESCOTT & 09/01/2019 [id number] / Implanted: Qty: 1 on 01/13/2016 by Oniel Smith MD [facility] Arterial ASSC: MED PRDT [id number] / Procedures Procedure Name Priority Date/Time Associated Comments Diagnosis VASCULAR DIAGRAM 05/05/2018 4:01 -SCAN PM CONTROL OPERATOR [employer]OW COAT CARDIAC CATH REPORT - 04/25/2018 2:01 SCAN PM [employer] OPERATOR [employer]OW [employer]AT RHYTHM STRIP - SCAN 04/25/2018 2:01 PM [employer] OPERATOR [employer]OW [employer]AT VASCULAR DIAGRAM 04/25/2018 2:01 -SCAN PM [employer] OPERATOR [employer]AT TRANSFUSION SERVICE 04/09/2018 6:00 REPORT - SCAN PM [employer] OPERATOR [employer]OW [employer]AT CBC W/PLT COUNT & Routine 04/09/2018 3:55 Results for this AUTO DIFFERENTIAL AM [employer] OPERATOR [employer] procedure are in the results section. MAGNESIUM Routine 04/09/2018 3:55 Results for this AM [employer] OPERATOR [employer] procedure are in the results section. BASIC METABOLIC PANEL Routine 04/09/2018 3:55 Results for this (7) AM [employer] procedure are in the results section. CBC W/PLT COUNT & Routine 04/09/2018 3:55 Results for this AUTO DIFFERENTIAL AM [employer]PERATOR [employer] procedure are in the results section. POCT-ACT Routine 04/08/2018 7:42 Results for this PM [employer] OPERATOR [employer] procedure are in the results section. PERIPHERAL ANGIOS / 04/08/2018 3:53 PAD (peripheral AORTOGRAM PM CONTROL OPERATOR FLOW COAT artery disease) (HCC) APTT Routine 04/08/2018 8:31 Results for this AM [employer] OPERATOR [employer] procedure are in the results section. TYPE AND SCREEN, Routine 04/08/2018 6:03 Results for this AUTOMATED AM [employer] procedure are in the results section. LACTIC ACID, VENOUS Routine 04/08/2018 6:03 Results for this AM [employer] OPERATOR [employer] procedure are in the results section. CREATINE KINASE (CK) Routine 04/08/2018 6:03 Results for this AM [employer] OPERATOR [employer]OW [employer] procedure are in the results section. APTT Routine 04/08/2018 2:34 Results for this AM [employer] OPERATOR [employer]OW CO[employer] procedure are in the results section. NERVE CONDUCTION Routine 04/07/2018 6:25 Results for this STUDIES; 3-4 STUDIES PM [employer] OPERATOR [employer] procedure are in the results section. CT/CTA AAA AND RUNOFF STAT 04/07/2018 2:43 Results for this PM [employer] OPERATOR [employer] procedure are in the results section. VENOUS DOPPLER LEG, Routine 04/07/2018 1:52 Results for this RIGHT PM [employer] OPERATOR [employer] procedure are in the results section. ECG 12-LEAD Routine 04/07/2018 11:08 AM CONTROL OPERATOR FLOW COAT Procedure Note - Interface, External Ris In - 04/07/2018 11:18 AM CONTROL OPERATOR FLOW COAT Ventricular Rate 60 BPM Atrial Rate 60 BPM P-R Interval 164 ms QRS Duration 92 ms Q-T Interval 398 ms QTC Calculation(Bazett) 398 ms R [place] 4 degrees T [place] 64 degrees Electronic atrial pacemaker When compared with ECG of 07-APR-2018 11:07, No significant change was found ECG 12-LEAD Routine 04/07/2018 11:07 AM CONTROL OPERATOR FLOW COAT Procedure Note - Interface, External Ris In - 04/07/2018 11:17 AM CONTROL OPERATOR FLOW COAT Ventricular Rate 60 BPM Atrial Rate 60 BPM P-R Interval 164 ms QRS Duration 90 ms Q-T Interval 396 ms QTC Calculation(Bazett) 396 ms P [place] -12 degrees R [place] 6 degrees T [place] 60 degrees Electronic atrial pacemaker When compared with ECG of 01-DEC-2017 11:15, No significant change was found ECG 12-LEAD STAT 04/07/2018 11:07 AM CONTROL OPERATOR FLOW COAT TROPONIN I Routine 04/07/2018 11:05 AM CONTROL OPERATOR [employer]OW COAT ECHOCARDIOGRAM REPORT - 04/07/2018 9:50 AM CONTROL OPERATOR FLOW COAT SCAN 2D ECHO W/ DOPPLER Routine 04/06/2018 9:45 PM CONTROL OPERATOR [employer]OW COAT Results for this (CW/PW/COLOR) procedure are in the results section. ARTERIAL DOPPLER LEGS LORAINE 04/06/2018 7:30 PM CONTROL OPERATOR [employer]OW COAT Results for this BILATERAL procedure are in the results section. CBC W/PLT COUNT & AUTO STAT 04/06/2018 3:47 PM CONTROL OPERATOR [employer]OW COAT Results for this DIFFERENTIAL procedure are in the results section. BASIC METABOLIC PANEL (7) STAT 04/06/2018 3:47 PM CONTROL OPERATOR FLOW COAT PT/APTT STAT 04/06/2018 3:47 PM CONTROL OPERATOR FLOW COAT CBC W/PLT COUNT & AUTO STAT 04/06/2018 3:47 PM CONTROL OPERATOR FLOW COAT Results for this DIFFERENTIAL procedure are in the results section. ARRYTHMIA IMPLANT REPORT - 02/03/2018 2:53 PM CONTROL OPERATOR [employer]OW COAT SCAN ARRYTHMIA IMPLANT REPORT - 12/25/2017 8:00 [...] (7) Routine 11/30/2017 5:41 PM CDT after 05/27/2017 Results VASCULAR DIAGRAM -SCAN (05/05/2018 4:01 PM CONTROL OPERATOR FLOW COAT)Only the most recent of2 resultswithin the time period is included. Narrative Performed At CARDIAC CATH REPORT - SCAN (04/25/2018 2:01 PM CONTROL OPERATOR FLOW COAT) Narrative Performed At RHYTHM STRIP - SCAN (04/25/2018 2:01 PM CONTROL OPERATOR FLOW COAT)Only the most recent of2 resultswithin the time period is included. Narrative Performed At TRANSFUSION SERVICE REPORT - SCAN (04/09/2018 6:00 PM CONTROL OPERATOR FLOW COAT)Only the most recent of2 resultswithin the time period is included. Narrative Performed At CBC with platelet count + automated diff (04/09/2018 3:55 AM CONTROL OPERATOR FLOW COAT)Only the most recent of5 resultswithin the time period is included. WBC 4.7 3.5 - 10.5 K/L [facility] RBC 3.54 (L) 4.63 - 6.08 M/L [facility] Hemoglobin 8.8 (L) 13.7 - 17.5 GM/DL [facility] Hematocrit 28.9 (L) 40.1 - 51.0 % [facility] MCV 81.6 79.0 - 92.2 fL [facility] MCH 24.9 (L) 25.7 - 32.2 pg [facility] MCHC 30.4 (L) 32.3 - 36.5 GM/DL [facility] RDW 18.3 (H) 11.6 - 14.4 % [facility] Platelets 156 150 - 450 K/CU MM [facility] MPV 11.0 9.4 - 12.4 fL [facility] nRBC 0 0 - 0 /100 WBC [facility] % Neutros 55 % [facility] % Lymphs 29 % [facility] % Monos 11 % [facility] % Eos 3 % [facility] % Baso 2 % [facility] # Neutros 2.59 1.78 - 5.38 K/L [facility] # Lymphs 1.34 1.32 - 3.57 K/L [facility] # Monos 0.51 0.30 - 0.82 K/L [facility] # Eos 0.15 0.04 - 0.54 K/L [facility] # Baso 0.07 0.01 - 0.08 K/L [facility] Immature Granulocytes-Relative 1 0 - 1 % [facility] Specimen Blood Performing Organization Address City/State/Zipcode Phone Number [facility] [address] [place] [address] [phone] CENTER Magnesium (04/09/2018 3:55 AM CONTROL OPERATOR FLOW COAT)Only the most recent of2 resultswithin the time period is included. Magnesium 1.9 1.6 - 2.6 mg/dL [facility] Specimen Blood Performing Organization Address City/[facility] Phone Number [address] [address] [phone] [place] Basic Metabolic Panel (04/09/2018 3:55 AM CONTROL OPERATOR FLOW COAT)Only the most recent of5 resultswithin the time period is included. Sodium 136 136 - 145 meq/L [facility] Potassium 3.8 3.5 - 5.1 meq/L [facility] Chloride 107 98 - 107 meq/L [facility] CO2 24 22 - 29 meq/L [facility] BUN 14 7 - 21 mg/dL [facility] Creatinine 0.84 0.57 - 1.25 mg/dL [facility] Glucose 113 (H) 70 - 105 mg/dL [facility] Calcium 8.1 (L) 8.4 - 10.2 mg/dL [facility] EGFR 91Comment: ESTIMATED GFR IS mL/min/1.73 sq m [facility] NOT ACCURATE CREATININE [facility] CLEARANCE IN PREDICTING GLOMERULAR FILTRATION RATE. ESTIMATED GFR IS NOT APPLICABLE FOR DIALYSIS PATIENTS. Specimen Blood Performing Organization Address [facility] Phone Number [address] [address] [place] POC ACTIVATED CLOTTING TIME (04/08/2018 7:42 PM CONTROL OPERATOR FLOW COAT) Activated Clotting Time 158Comment: TESTED AT sec [facility] BSC [address] [place] [phone] Specimen Blood Performing Organization Address City/[facility] Phone Number [address] [address] [place] aPTT (04/08/2018 8:31 AM CONTROL OPERATOR FLOW COAT)Only the most recent of2 resultswithin the time period is included. PTT 76.2 (H) 22.5 - 36.0 seconds [facility] Specimen Blood Performing Organization Address City/[facility] Phone Number [address] [address] CENTER Type and screen, automated (04/08/2018 6:03 AM CONTROL OPERATOR FLOW COAT)Only the most recent of2 resultswithin the time period is included. ABO/RH AUTOMATED (BEAKER) O POSITIVE [facility] Ab Scrn NEGATIVE [facility] Specimen Blood Performing Organization Address City/[facility] Phone Number [address] [address] Lactic acid, venous, whole blood (04/08/2018 6:03 AM CONTROL OPERATOR FLOW COAT) Lactate, Venous 1.1 0.5 - 2.2 mmol/L [facility] Specimen Blood Performing Organization Address City/[facility] Phone Number [address] [address] [place] Creatine Kinase (CK) (04/08/2018 6:03 AM CONTROL OPERATOR FLOW COAT) Total CK 74 29 - 200 U/L [facility] Specimen Blood Performing Organization Address City/[facility] Phone Number [address] [address] [phone] [place] NERVE CONDUCTION STUDIES; 3-4 STUDIES (04/07/2018 6:25 PM CONTROL OPERATOR FLOW COAT) Narrative Performed At [facility] Neurophysiology Department ELECTROMYOGRAPHY / NERVE CONDUCTION STUDY [address] [place] [address] [address] [place] [address] Name: Mami Pena Address:Date of [...] External Ris In - 04/08/2018 6:53 AM CONTROL OPERATOR FLOW COAT [facility] Neurophysiology Department ELECTROMYOGRAPHY / NERVE CONDUCTION STUDY [address] [facility] [address] [place] [address] Name: Mami Pena Address: Date of : [...] or denervation in the right lower limb. Meldoy Benavidez M.D. Performing Organization Address City/State/Zipcode Phone Number [facility] CTA AAA and Runoff (04/07/2018 2:43 PM CONTROL OPERATOR FLOW COAT) Narrative Performed At Addendum Begins [facility]ocal REPORT STATUS:A Addendum: I agree with the previously described non vascular findings. Signed: Angel Payne MD Report Verified Date/Time:04/07/2018 16:54:33 Reading Location: [facility] P048 Angio Body Reading Room Addendum Ends [...] dictated regarding the non-vascular findings by the Vp Business Development Radiologist. Signed: Steve Musa MD Report Verified Date/Time:04/07/2018 15:32:19 Reading Location: [place] [address] Cardiology MRI Procedure Note Interface, External Ris In - 04/08/2018 10:27 PM CONTROL OPERATOR FLOW COAT Addendum Begins REPORT STATUS:A Addendum: I agree with the previously described non vascular findings. Signed: Angel Payne MD Report Verified Date/Time: 04/07/2018 16:54:33 Reading Location: [facility] P048 Angio Body Reading Room Addendum Ends [...] dictated regarding the non-vascular findings by the Vp Business Development Radiologist. Signed: Steve Musa MD Report Verified Date/Time: 04/07/2018 15:32:19 Reading Location: [place] [address] Cardiology MRI Performing Organization Address City/State/Zipcode Phone Number [place] RIS Venous doppler leg, right (04/07/2018 1:52 PM CONTROL OPERATOR FLOW COAT) Ejection Fraction [facility] ECHO HEARTLAB MKCKESSON CPACS Impressions Performed At Right Impression [facility] ECHO HEARTLAB [facility] CPACS 1. There [...] PV LAB - Lower Extremities DVT Study [facility] ECHO HEARTLAB MKCK[facility]ON [facility] Demographics Patient Name Tyron PENA of Study 04/07/2018 [id number] Age 68 Visit Number [id number] GenderMale Accession Number [id number] Date of 1950 [facility] Number 1155 Physician SonographerGkolton Cruz.Capri Ramírez RVT, ARS Physician Procedure Type of Study: Veins: Lower Extremities DVT Study, VENOUS DOPPLER LEG, RIGHT. Indications for Study:Leg pain . Patient Status:Routine. Study Location:Vascular Lab. Technical Quality:Adequate visualization. Risk Factors History of Disease + + + + !Diagnosis !Date!Comments ! + + + + !History/Risk!03/12/2017!Stroke, Current Smoker, PAD, HTN, HLD, CAD, ! !Factors:!!PANTOGRAPH I ENGRAVER D, DC, Pacemaker, Fem-fem Bypass (2015)! + + + + Procedure Note Interface, External Ris In - 04/07/2018 4:03 PM CONTROL OPERATOR FLOW COAT PV LAB - Lower Extremities DVT Study Demographics Patient Name MAMI PENA Date of Study 04/07/2018 Age 68 Visit Number [id number] Gender Male Accession Number [id number] Date of 1950 Referring Christin Ferraro Room Number 1155 Physician Medical Supply Technician Jimmy Cruz. Interpreting Shivani Ramírez RVT, ARDMS Physician Procedure Type of Study: Veins: Lower Extremities DVT Study, VENOUS DOPPLER LEG, RIGHT. Indications for Study:Leg pain . Patient Status:Routine. Study Location:Vascular Lab. Technical Quality:Adequate visualization. Risk Factors History of Disease + + + + !Diagnosis !Date !Comments ! + + + + !History/Risk !03/12/2017!Stroke, Current Smoker, PAD, HTN, HLD, CAD, ! !Factors: ! !COPD, DC, Pacemaker, Fem-fem Bypass (2016) ! + + [...] are measured in cm Performing Organization Address City[place] Phone Number [facility]ART[facility] ECG 12 lead (04/07/2018 11:07 AM CONTROL OPERATOR FLOW COAT)Only the most recent of4 resultswithin the time period is included. Narrative Performed At Ventricular Rate 60 BPM [place] Atrial Rate 60 BPM P-R Interval 164 ms QRS Duration 90 ms Q-T Interval 396 ms QTC Calculation(Bazett) 396 ms P [place] -12 degrees R [place] 6 degrees T [place] 60 degrees Electronic atrial pacemaker When compared with ECG of 01-DEC-2017 11:15, No significant change was found Confirmed by Tyler Hickman ([id number]) on 04/07/2018 8:25:38 PM Procedure Note Interface, External Ris In - 04/07/2018 8:25 PM CONTROL OPERATOR FLOW COAT Ventricular Rate 60 BPM Atrial Rate 60 BPM P-R Interval 164 ms QRS Duration 90 ms Q-T Interval 396 ms QTC Calculation(Bazett) 396 ms P [place] -12 degrees R [place] 6 degrees T [place] 60 degrees Electronic atrial pacemaker When compared with ECG of 01-DEC-2017 11:15, No significant change was found Confirmed by Tyler Hickman ([id number]) on 04/07/2018 8:25:38 PM Performing Organization Address City/State/Zipcode Phone Number GE MUSE Troponin I (04/07/2018 11:05 AM CONTROL OPERATOR FLOW COAT)Only the most recent of5 resultswithin the time period is included. Troponin I <0.01 0.00 - 0.03 ng/mL [facility] Specimen Blood Narrative Performed At Troponin I (TnI) levels must be interpreted [facility] in the context of the presenting symptoms [...] tachyarrhythmia. Performing Organization Address City/State/Zipcode Phone Number [facility] [address] [place] [address] CENTER ECHOCARDIOGRAM REPORT - SCAN (04/07/2018 9:50 AM CONTROL OPERATOR FLOW COAT) Narrative Performed At 2D Echo W/Doppler(CW/PW/Color) (04/06/2018 9:45 PM CONTROL OPERATOR FLOW COAT) Ejection Fraction [facility]CHO [facility] Narrative Performed At Transthoracic Echocardiography Report (TTE) [facility] Dem[facility] Patient Name JEAN, Date of Study 04/06/2018 MAMI [id number] GenderMale Visit Number [id number] [id number] Room Number 1155 Number Date of Birth1950Referring Physician Christin Ferraro Age68 year(s)Medical Supply Technician Krista Villatoro RDCS, RVT Connie Webb MD Physician Procedure Type of Study TTE procedure:2DECHO W DOPPLER(CW/PW/COLOR) (Routine) Indications:Acute Chest Pain/ Suspected CAD. Clinical History COPD, CAD, CVA, HTN, HLD,DC, PAD, PACEMAKER HGB 11.8 HCT 38.8 % [...] External Ris In - 04/07/2018 9:03 AM CONTROL OPERATOR FLOW COAT Transthoracic Echocardiography Report (TTE) Demographics Patient Name JEAN, Date of Study 04/06/2018 MAMI Gender Male Visit Number [id number] Race Room Number 1155 Number Date of 1950 Referring Physician Christin Lam S Age 68 year(s) Medical Supply Technician Krista Villatoro RDCS, RVT Interpreting Marshall Webb MD Physician Procedure Type of Study TTE procedure:2DECHO W DOPPLER(CW/PW/COLOR) (Routine) Indications:Acute Chest Pain/ Suspected CAD. Clinical History COPD, CAD, CVA, HTN, HLD,DC, PAD, PACEMAKER HGB 11.8 HCT 38.8 % [...] l/min/m^2 Performing Organization Address City/State/Zipcode Phone Number [facility] ECHO HEARTLAB [facility] CPACS Arterial doppler legs bilateral (04/06/2018 7:30 PM CONTROL OPERATOR FLOW COAT) Ejection Fraction [facility] ECHO HEART[facility] Impressions Performed At Right Impression [facility] 1. The common femoral, profunda femoral, superficial [...] + + + + + + !Prox AGENCY DIRECTOR ! !86.4! !Biphasic ! !80.3! !Biphasic ! + + + + + + + + + + !Mid AGENCY DIRECTOR ! !106 !!Biphasic ! !98.5! !Biphasic ! + + + + + + + + + + !Dist AGENCY DIRECTOR ! !69.9! !Biphasic ! !76.8! !Biphasic ! [...] PV LAB - Lower Extremity Arterial Duplex [facility] Demographics Patient Name Tyron PENA of Study04/06/2018 [id number] Age68 Visit Number [id number] Gender Male Accession Number [id number] Date of Birth1950 [facility] [id number] Physician SonographAnalia Rios Interpreting Shivani Ramírez MD [...] Current Smoker, PAD, HTN, HLD, CAD, ! !Factors:!!PANTOGRAPH I ENGRAVER D, DC, Pacemaker, Fem-fem Bypass (2015)! + + + + Procedure Note Interface, External Ris In - 04/07/2018 4:04 PM CONTROL OPERATOR FLOW COAT PV LAB - Lower Extremity Arterial Duplex Demographics Patient Name MAMI PENA Date of Study 04/06/2018 Age 68 Visit Number [id number] Gender Male Accession Number [id number] Date of 1950 Kayla Ferraro Room Number 1155 Physician Medical Supply Technician Sebastian Rios Interpreting Shivani Ramírez MD RVS [...] HTN, HLD, CAD, ! !Factors: ! !COPD, DC, Pacemaker, Fem-fem Bypass (2016) ! + + [...] + + + +-------- + + !Prox AGENCY DIRECTOR ! !86.4 ! !Biphasic ! !80.3 ! !Biphasic ! + + + ------+ + + + +-------- + + !Mid AGENCY DIRECTOR ! !106 ! !Biphasic ! !98.5 ! !Biphasic ! + + + ------+ + + + +-------- + + !Dist AGENCY DIRECTOR ! !69.9 ! !Biphasic ! !76.8 ! [...] HEARTLAB [facility] CPACS PT/aPTT (04/06/2018 3:47 PM CONTROL OPERATOR FLOW COAT) Protime 13.8 11.7 - 14.[address] [facility] INR 1.1 <=5.9 [facility] PTT 31.6 22.5 - 36.0 seconds [facility] Specimen Blood - Arm, Right Narrative Performed At RECOMMENDED COUMADIN/WARFARIN INR THERAPY [facility] RANGES STANDARD DOSE: 2.0 - 3.0 Includes: PROPHYLAXIS for venous thrombosis, systemic embolization; TREATMENT for venous thrombosis and/or pulmonary embolus. HIGH RISK: Target INR is 2.5-3.5 for patients with mechanical heart valves. Performing Organization Address City/State/Zipcode Phone Number [facility] [address] [place] [address] [phone] [place] ARRYTHMIA IMPLANT REPORT - SCAN (02/03/2018 2:53 PM CONTROL OPERATOR FLOW COAT)Only the most recent of3 resultswithin the time period is included. Narrative Performed At TSH/Free T4 If Indicated (12/02/2017 3:11 AM CDT) TSH 3.16 0.35 - 4.94 uIU/mL [facility] Specimen Blood Performing Organization Address City/[facility] Phone Number [place] [phone] [place] [address] [place] Carotid doppler bilateral (12/01/2017 10:12 PM CDT) Ejection Fraction [facility] ECHO HEART[facility] CPACS Impressions Performed At Right Impression [facility] ECHO HEARTLAB [facility] CPACS 1. There [...] At PV LAB - Carotid Duplex Study [facility] ECHO HEARTLAB [facility] Demographics Patient Name JEAN,Date of Study 12/01/2017 MAMI [id number] Age 67 Visit Number [id number] GenderMale Accession Number [id number] Date of 1950 [facility] Eze Room Number 7515 PhysicianMichael SonographSarah Hayes InterpretingJ. Jose Perez MD, Physician KETTY Procedure Type of Study: Cerebral: Carotid, CAROTID DOPPLER, BILATERAL. Indications for Study:Stroke. Patient Status:Routine. Study Location:Portable. Technical Quality:Adequate visualization. Risk Factors History of Disease + + + + !Diagnosis !Date!Comments ! + + + + !History/Risk!03/12/2017!Stroke, Current Smoker, PAD, HTN, HLD, CAD, ! !Factors:!!PANTOGRAPH I ENGRAVER D, DC, Pacemaker, Fem-fem Bypass (2016)! + + + + Procedure Note Interface, External Ris In - 12/02/2017 6:29 AM CDT PV LAB - Carotid Duplex Study Demographics Patient Name JEAN, Date of Study 12/01/2017 MAMI Age 67 Visit Number [id number] Gender Male Accession Number [id number] Date of 1950 Referring Louise Loo Room Number 7515 Physician Jose Medical Supply Technician Noel Hayes Interpreting Cristobal Perez MD, Physician RPTUNG Procedure Type of Study: Cerebral: Carotid, CAROTID DOPPLER, BILATERAL. Indications for Study:Stroke. Patient Status:Routine. Study Location:Portable. Technical Quality:Adequate visualization. Risk Factors History of Disease + + + + !Diagnosis !Date !Comments ! + + + + !History/Risk !03/12/2017!Stroke, Current Smoker, PAD, HTN, HLD, CAD, ! !Factors: ! !COPD, DC, Pacemaker, Fem-fem Bypass (2016) ! + + [...] City/State/Zipcode Phone Number [facility] ECHOCARDIOGRAM REPORT - SCAN (12/01/2017 6:50 PM CDT) Narrative Performed At CT brain without IV contrast portable (12/01/2017 6:30 PM CDT) Narrative Performed At [facility] without contrast 12/01/2017 6:40 [...] MD Report Verified Date/Time:12/01/2017 18:41:06 Reading Location: [facility] Radiology Reading Room Procedure Note Interface, External [...] Report Verified Date/Time: 12/01/2017 18:41:06 Reading Location: [facility] Radiology Reading Room Performing Organization Address City/State/Zipcode Phone Number RIS Potassium (12/01/2017 3:53 PM CDT) Potassium 3.7 3.5 - 5.1 meq/L [facility] Specimen Blood Narrative Performed At Check Serum Potassium level 2 hours after [facility] oral potassium replacement completed or 30 min after intravenous potassium replacement. Performing Organization Address City/State/[facility] [place] [address] CENTER Pacemaker Check (12/01/2017 10:56 AM CDT) Narrative Performed At Sakshi Britt RN 12/01/2017 10:56 AM Performed pacemaker interrogation per order.Preliminary report placed under cardiac studies in chart. 1. Normal device function 2. No events SAKSHI BRITT RN 12/01/2017 10:56 AM [id number] Transthoracic 2D echo w/ doppler (cw/pw/color) (12/01/2017 9:37 AM CDT) Ejection Fraction [facility] Narrative Performed At Transthoracic Echocardiography Report (TTE) [facility] Dem[facility] Patient Name JEAN, Date of Study 12/01/2017 MAMI [id number] GenderMale Visit Number [id number] [id number] Room Number [id number] Number Date of Birth1950Referring Physician Jostin Sevilla MD Age67 year(s)Medical Supply Technician Roxane Ragsdale [facility] AnalystAlex Modesto InterpretingStPhysician TJ Tracy Procedure Type of Study TTE procedure:2DECHO W DOPPLER(CW/PW/COLOR) (Routine) Indications:Suspected cardiac source of emboli. Clinical History HGB 11.3 HCT 35.2 % DEFINITY 4ML ANGINA, COPD, CAD, CVA (03/2017), DEMENTIA, SHI, EMPHYSEMA, HTN, HLD, DC PPM (2008), SOB, SMOKER, TIA, PCI (01/20/2016), [...] Study 12/01/2017 MAMI Gender Male Visit Number [id number] Race Room Number [id number] Number Date of 1950 Referring Physician Jostin Sevilla MD Age 67 year(s) Medical Supply Technician Roxane Jn [facility] Heat And Vent Aircraft Mechanic Edward Salvador Interpreting Physician TJ Gonzalez Procedure Type of Study TTE procedure:2DECHO W DOPPLER(CW/PW/COLOR) (Routine) Indications:Suspected cardiac source of emboli. Clinical History HGB 11.3 HCT 35.2 % DEFINITY 4ML ANGINA, COPD, CAD, CVA (03/2017), DEMENTIA, SHI, EMPHYSEMA, HTN, HLD, DC PPM (2008), SOB, SMOKER, TIA, PCI (01/20/2016), [...] City/State/Zipcode Phone Number [facility] (12/01/2017 8:14 AM CDT) Phosphorus 2.6Comment: Specimen slightly 2.3 - 4.7 mg/dL [facility] hemolyzed [facility] Specimen Blood Performing Organization Address [facility] Phone Number [address] [address] [phone] CENTER Hemoglobin A1c (12/01/2017 3:33 AM CDT)Only the most recent of2 resultswithin the time period is included. Hemoglobin A1C 6.0 4.3 - 6.1 % [facility] Specimen Blood Performing Organization Address [facility] Phone Number [address] [address] [phone] [place] Fasting lipid panel (12/01/2017 3:33 AM CDT) Triglycerides 119 mg/dL [facility] Cholesterol 144 mg/dL [facility] HDL 26 mg/dL [facility] LDL Calculated 94 mg/dL [facility] Specimen Blood Narrative Performed At [facility] Triglyceride Reference Range: Low Risk <150 [id number] High Risk 200-499 Very High Risk>=500 Cholesterol Reference Range: Low Risk <200 [id number] High Risk>240 HDL Cholesterol Reference Range: Low Risk >=60 High Risk <40 LDL Cholesterol Reference Range: Optimal<100 Near [id number] Very High >=190 Fasting Performing Organization Address [facility] Phone Number [address] [address] CENTER Vitamin B12 and Folate (11/30/2017 5:41 PM CDT) Vitamin B12 1,185 (H) 213 - 816 pg/mL [facility] Folate 2.3 (L) >=7.0 ng/mL [facility] Specimen Blood Performing Organization Address City/[facility] Phone Number [facility] [address] [place] [address] [phone] CENTER after 05/27/2017 Insurance Payer Benefit Plan / Group Subscriber ID Type Phone Address [employer]ARE - UNITED MEDICARE HMO xxxxxxxxx MEDICARE [facility] MEDICAID MEDICAID [facility] xxxxxxxxx Medicaid Guarantor Name Account Type Relation to Date of Phone Billing Patient Address Mami Pena Personal/Family Self 1950 [address] (Home) [place] [address] Mami Pena Personal/Family Self 1950 [address] (Home) [place] [address] Advance Directives For more information, please contact:RADHA Navarro [id number] [place], [place] [phone] Code Status Date Activated Date Inactivated Comments Full Code 04/06/2018 5:09 PM This code status was determined by: Patient Full Code 11/30/2017 4:52 PM 12/02/2017 4:13 PM This code status was determined by: Patient Full Code 01/13/2016 11:29 AM 01/14/2016 8:29 PM This code status was determined by: Patient
--- OUTSIDE RECORDS SUMMARY | 2018-05-28 14:41 | XMS REPORT | Continuity of Care Document ---
:1950 Author Organization Interface Problems Problem Status Onset Classification Date Comments Source Date Reported CHEST PAIN Active [address] CVA Active [address] PRABHA BILLING Active [address] HTN Active Finding 05/16/[address] [facility] [place] CHEST PAIN, Active [facility] Medications Medication Details Route Status Patient [...] ABDOMEN AND PELVIS WITH CONTRAST 12/28 - [facility] lvis w IV is w - Medical contrast contrast CT This report was dictated by a Mattress Specialist /Fellow. I have personally reviewed the images [...] Brain/Neck Exam: CTA HEAD AND NECK 12/28 [facility] Stroke Stroke /2018 - Medical perfusion [...] 1view EXAM: XR CHEST 1 VIEW 12/28 [facility] 1view DX DX /2017 - Medical This report was dictated by a Mattress Specialist/Fellow. I have personally reviewed the images as [...] EXAM: CT BRAIN WITHOUT CONTRAST 12/28 - [facility] Stroke wo wo contrast /2017 - [facility] contrast CT Center CT DATE: 12/28/2017 Read [...] - [place] Laboratory Urine Total Urine 05/16 [facility] Studies Protein Total /2017 [facility] [place] [facility] Urine 1.015 05/16 [facility]. Studies Specific /2017 [facility] [place] [facility] Urine Urine 05/16 [facility] Studies Nitrite Nitrite /2017 [facility] [place] [facility] Urine Urine 05/16 [facility] Studies Leukocyte Leukocyte /2017 [facility] Esterase Esterase [place] [facility] Urine Urine 05/16 [facility]. Studies Ketones Ketones /2017 [facility] [place] [facility] Urine Urine 05/16 [facility] Studies Glucose Glucose /2017 [facility] [place] [facility] Urine Color Urine 05/16 [facility]. Studies Color /2017 [facility] [place] [facility] Urine Blood Urine 05/16 [facility]. Studies Blood /2017 [facility] [place] [facility] Urine Urine 05/16 [facility] Studies Bilirubin Bilirubin /2017 [facility] [place] [facility] Urine Urine 05/16 [facility] Studies Appearance Appearance /2017 [facility] [place] [facility] Creatine 1.1 ng/ml 0.3 - 4.0 05/16 [facility] Studies Kinase MB /2017 [facility] [place] [facility] Creatine 61 IU/L 22 - 269 05/16 [facility] Studies Kinase /2017 [facility] [place] [facility] Troponin I null 05/16 [facility] Studies /2017 [facility] [place] [facility] Triglyceride 100 mg/dL 35 - 160 05/16 [facility] Studies s Level /2017 [facility] [place] [facility] LDL 44 05/16 [facility] Studies Cholesterol, /2017 [facility] Calculated [place] [facility] HDL 22 mg/dL 27 - 67 05/16 [facility] Studies Cholesterol /2018 [facility] [place] [facility] Cholesterol/ 3.91 05/16 [facility] Studies HDL Ratio /2017 [facility] [place] [facility] Cholesterol 86 mg/dL 05/16 [facility] Studies Level /2018 [facility] [place] [facility] White Blood 6.5 K/uL 4.3 - 10.9 05/15 [facility] Studies Count /2017 [facility] [place] [facility] Red Cell 17.3 % 12.1 - 05/15 [facility] Studies Distribution 15.2 /2017 [facility] Width [place] [facility] Red Blood 4.44 M/uL 4.33 - 05/15 [facility] Studies Count 5.43 /2017 [facility] [place] [facility] Platelet 161 K/uL 152 - 406 05/[address] [facility] Studies Count /2017 [facility] [place] [facility] Neutrophils 58.0 % 41.7 - 05/[address] [facility] St. Studies % 73.7 /2017 [facility] [place] [facility] Monocytes % 7.4 % 3.3 - 12.3 05/[address] [facility] St. Studies /2017 [facility] [place] [facility] Mean 9.4 fL 7.6 - 11.3 05/[address] [facility] St. Studies Platelet /2017 [facility] Volume [place] [facility] Mean 88.3 fL 80 - 100 05/[address] [facility] St[facility] Studies Corpuscular /2017 [facility] Volume [place] [facility] Mean 32.6 g/dL 32.0 - 05/[address] [facility] St. Studies Corpuscular 36.0 /2017 [facility] Hemoglobin [place] [facility] Mean 28.8 pg 27.0 - 05/15 [facility]. Studies Corpuscular 35.0 /2017 [facility] Hemoglobin [place] [facility] Lymphocytes 31.4 % 15.3 - 05/[address] [facility] St. Studies % 44.8 /2017 [facility] [place] [facility] Hemoglobin 12.8 g/dL 13.6 - 05/[address] [facility] St. Studies 17.9 /2017 [facility] [place] [facility] Hematocrit 39.2 % 39.6 - 05/[address] [facility] St. Studies 49.0 /2017 [facility] [place] [facility] Eosinophils 1.8 % 0 - 4.4 05/[address] [facility] St[facility] Studies % /2017 [facility] [place] [facility] Basophils % 1.4 % 0 - 1.3 05/[address] [facility] St[facility] Studies /2017 [facility] [place] [facility] Absolute 3.8 K/uL 1.8 - 8.0 05/[address] [facility] St[facility] Studies Neutrophil /2017 [facility] [place] [facility] Absolute 0.5 K/uL 0.1 - 1.3 05/[address] [facility] St[facility] Studies Monocytes /2017 [facility] (CBC) [place] [facility] Absolute 2.0 K/uL 0.7 - 4.9 05/[address] [facility] St[facility] Studies Lymphocytes /2017 [facility] - (CBC) [place] [facility] Absolute 0.1 K/uL 0 - 0.5 05/[address] [facility] [address] Studies Eosinophils /2017 [facility] - (CBC) [place] [facility] Absolute 0.1 K/uL 0 - 0.5 05/[address] [facility] St[facility] Studies Basophils /[address] [facility] - (CBC) [place] Laboratory Total 0.4 mg/dL 0.3 - 1.2 05/[address] [facility] St. Studies Bilirubin /[address] [facility] Glucose 135 mg/dL 65 - 120 05/15 [facility]. Studies Level /2017 [facility] [place] [facility] Estimat null 90 05/15 [facility]. Studies Glomerular /[address] [facility] - Filtration [place] Rate Laboratory Creatinine 0.82 mg/dL 0.61 - [address] [facility] St. Studies 1.24 /2017 [facility] Calcium 8.9 mg/dL 8.5 - 10.5 05/15 [facility]. Studies Level /[address] [facility] - [place] Laboratory Blood Urea 12 mg/dL 6 - 20 05/15 [facility]. Studies Nitrogen /[address] [facility] Alkaline 116 IU/L 42 - 121 05/15 [facility]. Studies Phosphatase /[address] [facility] Sodium Level 134 mEq/L 135 - 145 05/15 [facility]. Studies /2017 [facility] Serum Total 6.6 g/dL 6.0 - 8.3 05/15 [facility]. Studies Protein /2017 [facility] Potassium 3.7 mEq/L 3.6 - 5.0 05/15 [facility]. Studies Level /2017 [facility] Globulin 3.0 g/dL 2.3 - 3.5 05/15 [facility]. Studies /2018 [facility] [place] [facility] Chloride 101 mEq/L 101 - 111 05/15 [facility]. Studies Level /[address] [facility] - [place] Laboratory Carbon 27 mEq/L 21 - 31 05/15 [facility]. Studies Dioxide /2017 [facility] [place] Laboratory Aspartate 18 IU/L 10 - 42 05/15 [facility]. Studies Amino Transf /2017 [facility] - (AST/SGOT) [place] Laboratory Albumin/Glob 1.2 1.1 - 1.8 05/15 [facility]. Studies ulin Ratio /2017 [facility] [place] Laboratory Albumin 3.6 g/dL 3.2 - 5.5 05/[address] [facility] St. Studies /2018 [facility] Alanine 13 IU/L 10 - 60 05/15 [facility]. Studies Aminotransfe /2017 [facility] rase [place] (ALT/SGPT) Laboratory B-Type 60 pg/ml 05/[address] [facility] St. Studies Natriuretic [facility] Peptide [place] Laboratory Prothrombin 12.6 9.5 - 12.5 05/[address] [facility] St[address] Studies Time SECONDS [facility] [place] Laboratory INR 1.07 05/[address] [facility] St. Studies Internationa [facility] - l Normalized [place] Ratio Laboratory Activated 28.7 24.3 - 05/[address] [facility] St. Studies Partial SECONDS 36.9 [facility] Thromboplast [place] Time Laboratory Direct 0.1 mg/dL 0 - 0.2 05/[address] [facility] St. Studies Bilirubin [facility] [place] Laboratory Magnesium 1.8 mg/dL 1.8 - 2.5 05/[address] [facility] St. Studies Level [facility] [place] [facility] Rapid null 05/15 [facility]. Studies Troponin I [facility] [place] Laboratory Lipase 33 U/L 22 - 51 05/[address] [facility] St[facility] Studies [facility] [place] Laboratory Urine WBC null 03/[address] [facility] St[facility] Studies [facility] [place] [facility] Urine null 03/[address] [facility] St. Studies Squamous [facility] Epithelial [place] Cells Laboratory Urine RBC Urine RBC 03/[address] [facility] St[facility] Studies [facility] [place] Laboratory Urine Urine 03/[address] [facility] St. Studies Culture Culture [facility] - Reflexed Reflexed [place] Laboratory Urine null 03/[address] [facility] St. Studies Bacteria [facility] [place] [facility] Bedside 97 mg/dl 65 - 120 03/[address] [facility] St. Studies Glucose [facility] [place] Vital Signs Vital Sign Value Date Comments Source Heart Rate 61 05/16/2017 [facility]. [facility] [place] Systolic (mm Hg) 105 05/16/2017 [facility]. [facility] [place] Diastolic (mm Hg) 69 05/16/2017 [facility] [place] Temperature Oral (F) 97.8 F 05/16/2017 [facility] [place] Respitory Rate 18 05/16/2017 [facility] [place] Height 68 [facility] [place] Weight 155 [facility] [place] En[facility]ters Location Location Encounter Encounter Reason Attending ADM DC Status Source Details Type Number For Provider Date Date Visit [facility] Departed [id number] 03/11 03/[address] [facility] [place] [facility] [id number] 05/15 05/[address] [facility] [place] Procedures Procedure Code Date Perfomer Comments Source Head Brain Wo [id number] [facility] Cont 8 - [place] Chest For Pe [id number] [facility] Angio 8 - [place] Chest Single View [id number] [facility] 8 - [place] Count [facility] St. kes 8 - [place] [facility] 8 - [place] Chest Single View [id number] [facility] 8 - [place] Ct Stroke Brain [id number] [facility] Wo Cont 8 - [place] INTRODUCE OTH [id number] [facility] THROMBOLYTIC IN 8 - [place] PERIPH VEIN, PERC THER/PROPH/DIAG [id number] [facility]. [facility] INJ IV PUSH 8 - [place]
--- OUTSIDE RECORDS SUMMARY | 2018-05-28 14:42 | XMS REPORT ---
:1950 Author Organization [facility] Address [address] [place] [id number] Care Team Providers Name Role Phone VANDANA ACOSTA Unavailable Unavailable LOU AVERY Unavailable Unavailable MECCA STERILNG Unavailable Unavailable Problems This patient has no known problems. Allergies, Adverse Reactions, Alerts This patient has no known allergies or adverse reactions. Medications This patient has no known medications. Results Test Description Test Time Test Comments Text Results Atomic Results Result Comments MAGNESIUM 2018-04-09 05:42:00 Test Item Value Reference Range Comments MAGNESIUM (BEAKER) (test tenx=142) 1.9 mg/dL 1.6-2.6 BASIC METABOLIC [id number] 05:42:00 Test Item Value Reference Range Comments SODIUM (BEAKER) (test 136 meq/L 136-145 eqkg=580) POTASSIUM (BEAKER) (test 3.8 meq/L 3.5-5.1 swnt=357) CHLORIDE (BEAKER) (test 107 meq/L 98-107 chrl=194) CO2 (BEAKER) (test 24 meq/L 22-29 jyug=361) BLOOD UREA NITROGEN 14 mg/dL 7-21 (BEAKER) (test zjhb=354) CREATININE (BEAKER) (test 0.84 mg/dL 0.57-1.25 fimq=058) GLUCOSE RANDOM (BEAKER) 113 mg/dL 70-105 (test uqww=303) CALCIUM (BEAKER) (test 8.1 mg/dL 8.4-10.2 anqr=092) EGFR (BEAKER) (test 91 mL/min/1.73 sq m ESTIMATED GFR IS NOT dwoa=5526) ACCURATE CREATININE CLEARANCE IN PREDICTING GLOMERULAR FILTRATION RATE. ESTIMATED GFR IS NOT APPLICABLE FOR DIALYSIS PATIENTS. CBC W/PLT COUNT & AUTO [id number] 04:43:00 Test Item Value Reference Range Comments WHITE BLOOD CELL COUNT (BEAKER) (test sqqb=510) 4.7 K/ L 3.5-10.5 RED BLOOD CELL COUNT (BEAKER) (test kxwa=798) 3.54 M/ L 4.63-6.08 HEMOGLOBIN (BEAKER) (test atmt=832) 8.8 GM/DL 13.7-17.5 HEMATOCRIT (BEAKER) (test mmrc=511) 28.9 % 40.1-51.0 MEAN CORPUSCULAR VOLUME (BEAKER) (test xszq=607) 81.6 fL 79.0-92.2 MEAN CORPUSCULAR HEMOGLOBIN (BEAKER) (test 24.9 pg 25.7-32.2 sjrn=057) MEAN CORPUSCULAR HEMOGLOBIN CONC (BEAKER) (test 30.4 GM/DL 32.3-36.5 ynpr=630) RED CELL DISTRIBUTION WIDTH (BEAKER) (test 18.3 % 11.6-14.4 ptuq=501) PLATELET COUNT (BEAKER) (test dfep=516) 156 K/CU MM 150-450 MEAN PLATELET VOLUME (BEAKER) (test qfdd=090) 11.0 fL 9.4-12.4 NUCLEATED RED BLOOD CELLS (BEAKER) (test 0 /100 WBC 0-0 vqah=441) NEUTROPHILS RELATIVE PERCENT (BEAKER) (test 55 % hywo=187) LYMPHOCYTES RELATIVE PERCENT (BEAKER) (test 29 % rjnl=354) MONOCYTES RELATIVE PERCENT (BEAKER) (test 11 % tchi=457) EOSINOPHILS RELATIVE PERCENT (BEAKER) (test 3 % jorw=424) BASOPHILS RELATIVE PERCENT (BEAKER) (test 2 % djyp=864) NEUTROPHILS ABSOLUTE COUNT (BEAKER) (test 2.59 K/ L 1.78-5.38 cxma=150) LYMPHOCYTES ABSOLUTE COUNT (BEAKER) (test 1.34 K/ L 1.32-3.57 yzmg=396) MONOCYTES ABSOLUTE COUNT (BEAKER) (test 0.51 K/ L 0.30-0.82 ulul=537) EOSINOPHILS ABSOLUTE COUNT (BEAKER) (test 0.15 K/ L 0.04-0.54 oqzd=617) BASOPHILS ABSOLUTE COUNT (BEAKER) (test 0.07 K/ L 0.01-0.08 wotj=621) IMMATURE GRANULOCYTES-RELATIVE PERCENT (BEAKER) 1 % 0-1 (test wggq=7017) [id number] 19:48:00 Test Item Value Reference Range Comments ACTIVATED CLOTTING TIME 158 sec TESTED AT [facility] [address] ([address]) (test cdyw=049) [facility] [address] [id number] 09:20:00 Test Item Value Reference Range Comments PARTIAL THROMBOPLASTIN TIME (BEAKER) (test 76.2 seconds 22.5-36.0 ywpy=984) CREATINE KINASE (CK)2018-04-08 07:02:00 Test Item Value Reference Range Comments CREATINE KINASE TOTAL (BEAKER) (test farn=712) 74 U/L 29-200 LACTIC ACID, VENOUS, WHOLE [id number] 06:56:00 Test Item Value Reference Range Comments LACTATE BLOOD VENOUS (2) (BEAKER) (test 1.1 mmol/L 0.5-2.2 azug=9034) NERVE CONDUCTION STUDIES; 3-4 [id number] 06:53:00Select Extremity-> Right Leg Reason for exam:->painB[facility] HospitalNeurophysiology DepartmentELECTROMYOGRAPHY / NERVE CONDUCTION STUDY [address] [phone] Name: Mami Pena : Date of : [...] ConductionVelocitySural.RLower leg 2.9 ms 3.7 ms 12 ◘V Ankle-Lower leg 2.9 ms 140 mm 48 [...] right lower limb. ____Melody Benavidez M.D. 06:53 [id number] 03:03:00 Test Item Value Reference Range Comments PARTIAL THROMBOPLASTIN TIME (BEAKER) (test 82.1 seconds 22.5-36.0 gqac=500) CT, CTA AAA, W/ SAMMY.EXT.[id number] 16:54:00Addendum BeginsREPORT STATUS:A Addendum: I agree with the previously described non vascular findings. Signed: Angel Payne MDReport Verified Date/Time: 2018 16:54:33 Reading Location: [place] [address] Angio Body Reading RoomAddendum EndsFINAL REPORT CT [...] dictated regarding the non-vascular findings by the [employer] Radiologist. Signed: Steve Musa MDReport Verified Date/Time: 04/07/2018 15:32:19 Reading Location: [place] [address] Cardiology MRI TROPONIN [id number] 11:39:00 Test Item Value Reference Range Comments TROPONIN I (BEAKER) (test ewyo=389) < ng/mL 0.00-0.03 Troponin I (TnI) levels [...] acute neurological disease, and persistent tachyarrhythmia.BASIC METABOLIC [id number] 16:14:00 Test Item Value Reference Range Comments SODIUM (BEAKER) (test 133 meq/L 136-145 nfjr=797) POTASSIUM (BEAKER) (test 3.9 meq/L 3.5-5.1 zepj=408) CHLORIDE (BEAKER) (test 99 meq/L 98-107 tkka=386) CO2 (BEAKER) (test 23 meq/L 22-29 xmhy=173) BLOOD UREA NITROGEN 14 mg/dL 7-21 (BEAKER) (test zzmg=691) CREATININE (BEAKER) (test 1.02 mg/dL 0.57-1.25 ohrs=637) GLUCOSE RANDOM (BEAKER) 102 mg/dL 70-105 (test qnuy=362) CALCIUM (BEAKER) (test 9.7 mg/dL 8.4-10.2 jdhv=727) EGFR (BEAKER) (test 72 mL/min/1.73 sq m ESTIMATED GFR IS NOT ospk=9330) ACCURATE CREATININE CLEARANCE IN PREDICTING GLOMERULAR FILTRATION RATE. ESTIMATED GFR IS NOT APPLICABLE FOR DIALYSIS PATIENTS. PT/[id number] 16:05:00 Test Item Value Reference Range Comments PROTIME (BEAKER) (test upao=980) 13.8 seconds 11.7-14.7 INR (BEAKER) (test twiy=060) 1.1 <=5.9 PARTIAL THROMBOPLASTIN TIME (BEAKER) (test 31.6 seconds 22.5-36.0 mixw=093) RECOMMENDED COUMADIN/WARFARIN INR THERAPY RANGESSTANDARD DOSE: 2.0 - 3.0 Includes: PROPHYLAXIS forvenous thrombosis, systemic embolization; TREATMENT for venous thrombosis and/or pulmonary embolus.HIGH RISK: Target INR is 2.5-3.5 for patients with mechanical heart valves.CBC W/PLT COUNT & AUTO [id number] 15:56:00 Test Item Value Reference Range Comments WHITE BLOOD CELL COUNT (BEAKER) (test lpcb=765) 9.2 K/ L 3.5-10.5 RED BLOOD CELL COUNT (BEAKER) (test yejl=732) 4.75 M/ L 4.63-6.08 HEMOGLOBIN (BEAKER) (test idct=437) 11.8 GM/DL 13.7-17.5 HEMATOCRIT (BEAKER) (test xygs=129) 38.8 % 40.1-51.0 MEAN CORPUSCULAR VOLUME (BEAKER) (test qcqc=344) 81.7 fL 79.0-92.2 MEAN CORPUSCULAR HEMOGLOBIN (BEAKER) (test 24.8 pg 25.7-32.2 oqtk=969) MEAN CORPUSCULAR HEMOGLOBIN CONC (BEAKER) (test 30.4 GM/DL 32.3-36.5 brgb=710) RED CELL DISTRIBUTION WIDTH (BEAKER) (test 18.6 % 11.6-14.4 xapb=118) PLATELET COUNT (BEAKER) (test mwiv=230) 254 K/CU MM 150-450 MEAN PLATELET VOLUME (BEAKER) (test dtgj=850) 11.4 fL 9.4-12.4 NUCLEATED RED BLOOD CELLS (BEAKER) (test 0 /100 WBC 0-0 dzby=475) NEUTROPHILS RELATIVE PERCENT (BEAKER) (test 62 % jpmc=016) LYMPHOCYTES RELATIVE PERCENT (BEAKER) (test 27 % idkn=949) MONOCYTES RELATIVE PERCENT (BEAKER) (test 9 % hjmk=264) EOSINOPHILS RELATIVE PERCENT (BEAKER) (test 1 % mvox=203) BASOPHILS RELATIVE PERCENT (BEAKER) (test 1 % pefe=736) NEUTROPHILS ABSOLUTE COUNT (BEAKER) (test 5.71 K/ L 1.78-5.38 hsoc=411) LYMPHOCYTES ABSOLUTE COUNT (BEAKER) (test 2.47 K/ L 1.32-3.57 sjmc=097) MONOCYTES ABSOLUTE COUNT (BEAKER) (test 0.83 K/ L 0.30-0.82 fvci=751) EOSINOPHILS ABSOLUTE COUNT (BEAKER) (test 0.07 K/ L 0.04-0.54 lnzl=613) BASOPHILS ABSOLUTE COUNT (BEAKER) (test 0.11 K/ L 0.01-0.08 glhk=611) IMMATURE GRANULOCYTES-RELATIVE PERCENT (BEAKER) 1 % 0-1 (test rgqn=8447) TSH/FREE T4 IF [id number] 04:03:00 Test Item Value Reference Range Comments THYROID STIMULATING HORMONE (BEAKER) (test 3.16 uIU/mL 0.35-4.94 pidf=137) BASIC METABOLIC [id number] 03:35:00 Test Item Value Reference Range Comments SODIUM (BEAKER) (test 135 meq/L 136-145 imbg=384) POTASSIUM (BEAKER) (test 3.9 meq/L 3.5-5.1 xwuj=665) CHLORIDE (BEAKER) (test 106 meq/L 98-107 fbyw=883) CO2 (BEAKER) (test 22 meq/L 22-29 loem=480) BLOOD UREA NITROGEN 13 mg/dL 7-21 (BEAKER) (test hzmk=347) CREATININE (BEAKER) (test 0.81 mg/dL 0.57-1.25 khdq=465) GLUCOSE RANDOM (BEAKER) 91 mg/dL 70-105 (test leun=581) CALCIUM (BEAKER) (test 8.5 mg/dL 8.4-10.2 roui=393) EGFR (BEAKER) (test 95 mL/min/1.73 sq m ESTIMATED GFR IS NOT rscm=8507) ACCURATE CREATININE CLEARANCE IN PREDICTING GLOMERULAR FILTRATION RATE. ESTIMATED GFR IS NOT APPLICABLE FOR DIALYSIS PATIENTS. CBC W/PLT COUNT & AUTO [id number] 03:24:00 Test Item Value Reference Range Comments WHITE BLOOD CELL COUNT (BEAKER) (test mcmq=958) 5.2 K/ L 3.5-10.5 RED BLOOD CELL COUNT (BEAKER) (test wyfc=033) 4.07 M/ L 4.63-6.08 HEMOGLOBIN (BEAKER) (test dvae=910) 11.2 GM/DL 13.7-17.5 HEMATOCRIT (BEAKER) (test icst=520) 35.9 % 40.1-51.0 MEAN CORPUSCULAR VOLUME (BEAKER) (test mhcz=949) 88.2 fL 79.0-92.2 MEAN CORPUSCULAR HEMOGLOBIN (BEAKER) (test 27.5 pg 25.7-32.2 cbyk=618) MEAN CORPUSCULAR HEMOGLOBIN CONC (BEAKER) (test 31.2 GM/DL 32.3-36.5 rlat=300) RED CELL DISTRIBUTION WIDTH (BEAKER) (test 16.9 % 11.6-14.4 huwp=774) PLATELET COUNT (BEAKER) (test jedn=896) 161 K/CU MM 150-450 MEAN PLATELET VOLUME (BEAKER) (test qqqz=727) 10.7 fL 9.4-12.4 NUCLEATED RED BLOOD CELLS (BEAKER) (test 0 /100 WBC 0-0 sxqc=829) NEUTROPHILS RELATIVE PERCENT (BEAKER) (test 51 % ozcp=495) LYMPHOCYTES RELATIVE PERCENT (BEAKER) (test 32 % kxmt=197) MONOCYTES RELATIVE PERCENT (BEAKER) (test 11 % ioyy=547) EOSINOPHILS RELATIVE PERCENT (BEAKER) (test 3 % fslg=916) BASOPHILS RELATIVE PERCENT (BEAKER) (test 2 % vdxc=085) NEUTROPHILS ABSOLUTE COUNT (BEAKER) (test 2.67 K/ L 1.78-5.38 xihw=507) LYMPHOCYTES ABSOLUTE COUNT (BEAKER) (test 1.68 K/ L 1.32-3.57 ndrg=709) MONOCYTES ABSOLUTE COUNT (BEAKER) (test 0.58 K/ L 0.30-0.82 surz=026) EOSINOPHILS ABSOLUTE COUNT (BEAKER) (test 0.18 K/ L 0.04-0.54 focl=524) BASOPHILS ABSOLUTE COUNT (BEAKER) (test 0.08 K/ L 0.01-0.08 vjzw=650) IMMATURE GRANULOCYTES-RELATIVE PERCENT (BEAKER) 1 % 0-1 (test ldui=2303) TROPONIN [id number] 20:57:00 Test Item Value Reference Range Comments TROPONIN I (BEAKER) (test rhij=708) < ng/mL 0.00-0.03 Troponin I (TnI) levels [...] persistent tachyarrhythmia.CT BRAIN WITHOUT IV CONTRAST - [id number] 18:41:00Reason for exam:->Post tPAFINAL REPORT CT head [...] Paez Verified Date/Time: 12/01/2017 18:41:06 Reading Location: [facility] Radiology Reading Room TROPONIN [id number] 17:00:00 Test Item Value Reference Range Comments TROPONIN I (BEAKER) (test bnhz=912) < ng/mL 0.00-0.03 Troponin I (TnI) levels [...] failure, acidosis, acute neurological disease, and persistent tachyarrhythmia.[id number] 16:23:00 Test Item Value Reference Range Comments POTASSIUM (BEAKER) (test jrqn=250) 3.7 meq/L 3.5-5.1 Check Serum Potassium level 2 hours after oral potassium replacement completed or 30 min after intravenous potassium replacement.[id number] 11:59:00 Test Item Value Reference Range Comments MAGNESIUM (BEAKER) (test 2.2 mg/dL 1.6-2.6 Specimen slightly hemolyzed fttp=063) [id number] 11:59:00 Test Item Value Reference Range Comments PHOSPHORUS (BEAKER) (test 2.6 mg/dL 2.3-4.7 Specimen slightly hemolyzed jubg=224) HEMOGLOBIN [id number] 11:49:00 Test Item Value Reference Range Comments HEMOGLOBIN A1C (BEAKER) (test znoe=152) 6.0 % 4.3-6.1 TROPONIN [id number] 08:40:00 Test Item Value Reference Range Comments TROPONIN I (BEAKER) (test jypv=900) < ng/mL 0.00-0.03 Troponin I (TnI) levels [...] acidosis, acute neurological disease, and persistent tachyarrhythmia.LIPID [id number] 04:39:00 Test Item Value Reference Range Comments TRIGLYCERIDES (BEAKER) (test lcdv=756) 119 mg/dL CHOLESTEROL (BEAKER) (test host=926) 144 mg/dL HDL CHOLESTEROL (BEAKER) (test ocsh=398) 26 mg/dL LDL CHOLESTEROL CALCULATED (BEAKER) (test 94 mg/dL vtdd=827) Triglyceride Reference Range: Low Risk <150 Borderline 150- 199 High Risk 200-499 Very High Risk >=500Cholesterol Reference Range: Low Risk <200 Borderline 200-239 High Risk > 240HDL Cholesterol Reference Range: Low Risk >=60 High Risk <40LDL Cholesterol Reference Range: Optimal <100 Near Optimal 100-129 Borderline 130-159 High 160-189 Very High >=190 FastingBASIC METABOLIC [id number] 04:39:00 Test Item Value Reference Range Comments SODIUM (BEAKER) (test 136 meq/L 136-145 agyr=548) POTASSIUM (BEAKER) (test 3.7 meq/L 3.5-5.1 vsvx=761) CHLORIDE (BEAKER) (test 105 meq/L 98-107 mnjj=770) CO2 (BEAKER) (test 23 meq/L 22-29 wflo=761) BLOOD UREA NITROGEN 14 mg/dL 7-21 (BEAKER) (test effl=057) CREATININE (BEAKER) (test 0.86 mg/dL 0.57-1.25 eryk=772) GLUCOSE RANDOM (BEAKER) 94 mg/dL 70-105 (test tkrg=387) CALCIUM (BEAKER) (test 8.8 mg/dL 8.4-10.2 ekik=366) EGFR (BEAKER) (test 88 mL/min/1.73 sq m ESTIMATED GFR IS NOT whrv=1825) ACCURATE CREATININE CLEARANCE IN PREDICTING GLOMERULAR FILTRATION RATE. ESTIMATED GFR IS NOT APPLICABLE FOR DIALYSIS PATIENTS. FastingCBC W/PLT COUNT & AUTO [id number] 04:25:00 Test Item Value Reference Range Comments WHITE BLOOD CELL COUNT (BEAKER) (test agfh=677) 5.0 K/ L 3.5-10.5 RED BLOOD CELL COUNT (BEAKER) (test bakb=792) 4.03 M/ L 4.63-6.08 HEMOGLOBIN (BEAKER) (test hmrc=728) 11.3 GM/DL 13.7-17.5 HEMATOCRIT (BEAKER) (test mzgk=926) 35.2 % 40.1-51.0 MEAN CORPUSCULAR VOLUME (BEAKER) (test euqo=168) 87.3 fL 79.0-92.2 MEAN CORPUSCULAR HEMOGLOBIN (BEAKER) (test 28.0 pg 25.7-32.2 fskw=436) MEAN CORPUSCULAR HEMOGLOBIN CONC (BEAKER) (test 32.1 GM/DL 32.3-36.5 xici=883) RED CELL DISTRIBUTION WIDTH (BEAKER) (test 16.9 % 11.6-14.4 uoiu=607) PLATELET COUNT (BEAKER) (test yqvg=407) 179 K/CU MM 150-450 MEAN PLATELET VOLUME (BEAKER) (test bjth=371) 11.6 fL 9.4-12.4 NUCLEATED RED BLOOD CELLS (BEAKER) (test 0 /100 WBC 0-0 mooj=104) NEUTROPHILS RELATIVE PERCENT (BEAKER) (test 48 % ezbr=598) LYMPHOCYTES RELATIVE PERCENT (BEAKER) (test 36 % nrjj=692) MONOCYTES RELATIVE PERCENT (BEAKER) (test 10 % pjth=417) EOSINOPHILS RELATIVE PERCENT (BEAKER) (test 3 % jkay=444) BASOPHILS RELATIVE PERCENT (BEAKER) (test 2 % szkd=622) NEUTROPHILS ABSOLUTE COUNT (BEAKER) (test 2.41 K/ L 1.78-5.38 jllf=968) LYMPHOCYTES ABSOLUTE COUNT (BEAKER) (test 1.80 K/ L 1.32-3.57 zwak=053) MONOCYTES ABSOLUTE COUNT (BEAKER) (test 0.52 K/ L 0.30-0.82 mcvx=185) EOSINOPHILS ABSOLUTE COUNT (BEAKER) (test 0.17 K/ L 0.04-0.54 ruar=518) BASOPHILS ABSOLUTE COUNT (BEAKER) (test 0.08 K/ L 0.01-0.08 xeml=050) IMMATURE GRANULOCYTES-RELATIVE PERCENT (BEAKER) 1 % 0-1 (test opfn=4946) HEMOGLOBIN [id number] 22:29:00 Test Item Value Reference Range Comments HEMOGLOBIN A1C (BEAKER) (test ivze=375) 5.9 % 4.3-6.1 VITAMIN B12 AND [id number] 18:47:00 Test Item Value Reference Range Comments VITAMIN B12 (BEAKER) (test ppnk=599) 1185 pg/mL 213-816 FOLATE (BEAKER) (test fmch=528) 2.3 ng/mL >=7.0 TROPONIN [id number] 18:18:00 Test Item Value Reference Range Comments TROPONIN I (BEAKER) (test qtid=155) < ng/mL 0.00-0.03 Troponin I (TnI) levels [...] acute neurological disease, and persistent tachyarrhythmia.BASIC METABOLIC [id number] 18:10:00 Test Item Value Reference Range Comments SODIUM (BEAKER) (test 136 meq/L 136-145 qdfx=620) POTASSIUM (BEAKER) (test 3.8 meq/L 3.5-5.1 mbuc=403) CHLORIDE (BEAKER) (test 102 meq/L 98-107 drrh=673) CO2 (BEAKER) (test 23 meq/L 22-29 case=596) BLOOD UREA NITROGEN 10 mg/dL 7-21 (BEAKER) (test bkzo=300) CREATININE (BEAKER) (test 0.88 mg/dL 0.57-1.25 zpwv=592) GLUCOSE RANDOM (BEAKER) 102 mg/dL 70-105 (test oxxz=166) CALCIUM (BEAKER) (test 9.3 mg/dL 8.4-10.2 nnun=550) EGFR (BEAKER) (test 86 mL/min/1.73 sq m ESTIMATED GFR IS NOT qken=5592) ACCURATE CREATININE CLEARANCE IN PREDICTING GLOMERULAR FILTRATION RATE. ESTIMATED GFR IS NOT APPLICABLE FOR DIALYSIS PATIENTS. CBC W/PLT COUNT & AUTO [id number] 17:52:00 Test Item Value Reference Range Comments WHITE BLOOD CELL COUNT (BEAKER) (test sqhw=494) 8.8 K/ L 3.5-10.5 RED BLOOD CELL COUNT (BEAKER) (test fkoz=742) 4.53 M/ L 4.63-6.08 HEMOGLOBIN (BEAKER) (test bweu=709) 12.6 GM/DL 13.7-17.5 HEMATOCRIT (BEAKER) (test ghwj=432) 39.4 % 40.1-51.0 MEAN CORPUSCULAR VOLUME (BEAKER) (test fezt=532) 87.0 fL 79.0-92.2 MEAN CORPUSCULAR HEMOGLOBIN (BEAKER) (test 27.8 pg 25.7-32.2 tvlw=954) MEAN CORPUSCULAR HEMOGLOBIN CONC (BEAKER) (test 32.0 GM/DL 32.3-36.5 bnei=249) RED CELL DISTRIBUTION WIDTH (BEAKER) (test 17.0 % 11.6-14.4 suhg=565) PLATELET COUNT (BEAKER) (test zyjy=448) 186 K/CU MM 150-450 MEAN PLATELET VOLUME (BEAKER) (test kzft=597) 10.5 fL 9.4-12.4 NUCLEATED RED BLOOD CELLS (BEAKER) (test 0 /100 WBC 0-0 ugmb=615) NEUTROPHILS RELATIVE PERCENT (BEAKER) (test 69 % nnvt=394) LYMPHOCYTES RELATIVE PERCENT (BEAKER) (test 20 % kqhf=577) MONOCYTES RELATIVE PERCENT (BEAKER) (test 9 % wpzu=201) EOSINOPHILS RELATIVE PERCENT (BEAKER) (test 1 % bped=235) BASOPHILS RELATIVE PERCENT (BEAKER) (test 1 % fkvq=257) NEUTROPHILS ABSOLUTE COUNT (BEAKER) (test 6.12 K/ L 1.78-5.38 vphk=828) LYMPHOCYTES ABSOLUTE COUNT (BEAKER) (test 1.72 K/ L 1.32-3.57 fgxy=699) MONOCYTES ABSOLUTE COUNT (BEAKER) (test 0.75 K/ L 0.30-0.82 invu=669) EOSINOPHILS ABSOLUTE COUNT (BEAKER) (test 0.08 K/ L 0.04-0.54 yjiq=357) BASOPHILS ABSOLUTE COUNT (BEAKER) (test 0.09 K/ L 0.01-0.08 jufb=410) IMMATURE GRANULOCYTES-RELATIVE PERCENT (BEAKER) 1 % 0-1 (test ziyf=4868) BASIC METABOLIC [id number] 07:51:00 Test Item Value Reference Range Comments SODIUM (BEAKER) (test 136 meq/L 136-145 anax=166) POTASSIUM (BEAKER) (test 4.0 meq/L 3.5-5.1 ngto=267) CHLORIDE (BEAKER) (test 106 meq/L 98-107 mxyu=282) CO2 (BEAKER) (test 23 meq/L 22-29 xkpj=119) BLOOD UREA NITROGEN 15 mg/dL 7-21 (BEAKER) (test qgsa=231) CREATININE (BEAKER) (test 0.92 mg/dL 0.57-1.25 tmaa=271) GLUCOSE RANDOM (BEAKER) 92 mg/dL 70-105 (test ordp=594) CALCIUM (BEAKER) (test 8.7 mg/dL 8.4-10.2 bseh=697) EGFR (BEAKER) (test 82 mL/min/1.73 sq m ESTIMATED GFR IS NOT hmee=9109) ACCURATE CREATININE CLEARANCE IN PREDICTING GLOMERULAR FILTRATION RATE. ESTIMATED GFR IS NOT APPLICABLE FOR DIALYSIS PATIENTS. CBC W/PLT COUNT & AUTO [id number] 05:55:00 Test Item Value Reference Range Comments WHITE BLOOD CELL COUNT (BEAKER) (test arfx=526) 5.9 K/ L 3.5-10.5 RED BLOOD CELL COUNT (BEAKER) (test xjlj=673) 4.25 M/ L 4.63-6.08 HEMOGLOBIN (BEAKER) (test jcfr=907) 12.3 GM/DL 13.7-17.5 HEMATOCRIT (BEAKER) (test asll=117) 37.8 % 40.1-51.0 MEAN CORPUSCULAR VOLUME (BEAKER) (test ftyn=645) 88.9 fL 79.0-92.2 MEAN CORPUSCULAR HEMOGLOBIN (BEAKER) (test 28.9 pg 25.7-32.2 dkqc=988) MEAN CORPUSCULAR HEMOGLOBIN CONC (BEAKER) (test 32.5 GM/DL 32.3-36.5 ynln=245) RED CELL DISTRIBUTION WIDTH (BEAKER) (test 15.9 % 11.6-14.4 fpql=767) PLATELET COUNT (BEAKER) (test ncsj=230) 173 K/CU MM 150-450 MEAN PLATELET VOLUME (BEAKER) (test blok=838) 11.5 fL 9.4-12.4 NUCLEATED RED BLOOD CELLS (BEAKER) (test 0 /100 WBC 0-0 qypf=412) NEUTROPHILS RELATIVE PERCENT (BEAKER) (test 48 % ornj=243) LYMPHOCYTES RELATIVE PERCENT (BEAKER) (test 34 % hwyw=362) MONOCYTES RELATIVE PERCENT (BEAKER) (test 12 % uxns=594) EOSINOPHILS RELATIVE PERCENT (BEAKER) (test 4 % gkts=915) BASOPHILS RELATIVE PERCENT (BEAKER) (test 2 % sxhj=167) NEUTROPHILS ABSOLUTE COUNT (BEAKER) (test 2.85 K/ L 1.78-5.38 erqk=225) LYMPHOCYTES ABSOLUTE COUNT (BEAKER) (test 2.02 K/ L 1.32-3.57 imku=013) MONOCYTES ABSOLUTE COUNT (BEAKER) (test 0.68 K/ L 0.30-0.82 nctn=833) EOSINOPHILS ABSOLUTE COUNT (BEAKER) (test 0.25 K/ L 0.04-0.54 npdp=516) BASOPHILS ABSOLUTE COUNT (BEAKER) (test 0.09 K/ L 0.01-0.08 ewuu=023) IMMATURE GRANULOCYTES-RELATIVE PERCENT (BEAKER) 1 % 0-1 (test esrm=7962) CBC W/PLT COUNT & AUTO [id number] 05:15:00 Test Item Value Reference Range Comments WHITE BLOOD CELL COUNT (BEAKER) (test bone=756) 5.4 K/ L 3.5-10.5 RED BLOOD CELL COUNT (BEAKER) (test evrj=963) 4.34 M/ L 4.63-6.08 HEMOGLOBIN (BEAKER) (test khcb=506) 12.5 GM/DL 13.7-17.5 HEMATOCRIT (BEAKER) (test ewoc=264) 39.0 % 40.1-51.0 MEAN CORPUSCULAR VOLUME (BEAKER) (test alay=123) 89.9 fL 79.0-92.2 MEAN CORPUSCULAR HEMOGLOBIN (BEAKER) (test 28.8 pg 25.7-32.2 muvz=844) MEAN CORPUSCULAR HEMOGLOBIN CONC (BEAKER) (test 32.1 GM/DL 32.3-36.5 iygg=747) RED CELL DISTRIBUTION WIDTH (BEAKER) (test 15.9 % 11.6-14.4 jdhk=154) PLATELET COUNT (BEAKER) (test sife=233) 162 K/CU MM 150-450 MEAN PLATELET VOLUME (BEAKER) (test kwaa=354) 10.6 fL 9.4-12.4 NUCLEATED RED BLOOD CELLS (BEAKER) (test 0 /100 WBC 0-0 yyiq=389) NEUTROPHILS RELATIVE PERCENT (BEAKER) (test 52 % vurn=188) LYMPHOCYTES RELATIVE PERCENT (BEAKER) (test 31 % cvgl=429) MONOCYTES RELATIVE PERCENT (BEAKER) (test 11 % ocle=506) EOSINOPHILS RELATIVE PERCENT (BEAKER) (test 4 % gxan=773) BASOPHILS RELATIVE PERCENT (BEAKER) (test 2 % jbcx=982) NEUTROPHILS ABSOLUTE COUNT (BEAKER) (test 2.78 K/ L 1.78-5.38 mqll=851) LYMPHOCYTES ABSOLUTE COUNT (BEAKER) (test 1.69 K/ L 1.32-3.57 fsfo=770) MONOCYTES ABSOLUTE COUNT (BEAKER) (test 0.59 K/ L 0.30-0.82 fvie=929) EOSINOPHILS ABSOLUTE COUNT (BEAKER) (test 0.21 K/ L 0.04-0.54 bsby=751) BASOPHILS ABSOLUTE COUNT (BEAKER) (test 0.09 K/ L 0.01-0.08 gfdi=489) IMMATURE GRANULOCYTES-RELATIVE PERCENT (KYARA) 1 % 0-1 (test qovi=3756) CT, BRAIN, WITHOUT [id number] 15:31:00FINAL REPORT CT head without contrast 03/12/2017 [...] MDReport Verified Date/Time: 03/12/2017 15:31:17 Reading Location: [address] Neuro Reading Room TROPONIN [id number] 15:26:00 Test Item Value Reference Range Comments TROPONIN I (KYARA) (test xaeu=496) 0.02 ng/mL 0.00-0.03 Troponin I (TnI) levels [...] acidosis, acute neurological disease, and persistent tachyarrhythmia.HEMOGLOBIN [id number] 12:38:00 Test Item Value Reference Range Comments HEMOGLOBIN A1C (KYARA) (test rdtc=696) 5.6 % 4.3-6.1 FastingRAD, CHEST, 1 VIEW, NON [id number] 10:06:00Reason for exam:->rule out pneumoniaShould this be [...] Benites Verified Date/Time: 03/12/2017 10:06:57 Reading Location: [facility] Radiology Reading Room [id number] 09:08:00 Test Item Value Reference Range Comments HOMOCYSTEINE (BEAKER) (test xmvu=188) 11.8 umol/L 5.1-15.4 FastingCREATINE KINASE (CK), TOTAL AND [id number] 08:55:00 Test Item Value Reference Range Comments CREATINE KINASE TOTAL (BEAKER) (test quer=694) 59 U/L 29-200 CREATINE KINASE-MB (BEAKER) (test ndqt=588) 1.0 ng/mL 0.0-6.6 CREATINE KINASE-MB INDEX (BEAKER) (test farn=874) 1.7 % CK-MB Reference Range:<6.7 Normal6.7-10.0 Borderline>10.0 AbnormalFastingFastingTROPONIN [id number] 08:55:00 Test Item Value Reference Range Comments TROPONIN I (BEAKER) (test rgbc=099) < ng/mL 0.00-0.03 Troponin I (TnI) levels [...] acidosis, acute neurological disease, and persistent tachyarrhythmia.FastingLIPID [id number] 08:48:00 Test Item Value Reference Range Comments TRIGLYCERIDES (BEAKER) (test yhtl=587) 151 mg/dL CHOLESTEROL (BEAKER) (test qllx=136) 147 mg/dL HDL CHOLESTEROL (BEAKER) (test cems=851) 29 mg/dL LDL CHOLESTEROL CALCULATED (BEAKER) (test 88 mg/dL jvuk=670) Triglyceride Reference Range: Low Risk <150 Borderline 150- 199 High Risk 200-499 Very High Risk >=500Cholesterol Reference Range: Low Risk <200 Borderline 200-239 High Risk > 240HDL Cholesterol Reference Range: Low Risk >=60 High Risk <40LDL Cholesterol Reference Range: Optimal <100 Near Optimal 100-129 Borderline 130-159 High 160-189 Very High >=190 FastingBASIC METABOLIC [id number] 08:48:00 Test Item Value Reference Range Comments SODIUM (BEAKER) (test 136 meq/L 136-145 wvgj=767) POTASSIUM (BEAKER) (test 4.4 meq/L 3.5-5.1 uhux=046) CHLORIDE (BEAKER) (test 104 meq/L 98-107 twmm=886) CO2 (BEAKER) (test 25 meq/L 22-29 kiwb=997) BLOOD UREA NITROGEN 15 mg/dL 7-21 (BEAKER) (test lvpg=864) CREATININE (BEAKER) (test 0.87 mg/dL 0.57-1.25 iten=398) GLUCOSE RANDOM (BEAKER) 102 mg/dL 70-105 (test iwfv=001) CALCIUM (BEAKER) (test 8.9 mg/dL 8.4-10.2 mpbu=860) EGFR (BEAKER) (test 87 mL/min/1.73 sq m ESTIMATED GFR IS NOT gygo=0529) ACCURATE CREATININE CLEARANCE IN PREDICTING GLOMERULAR FILTRATION RATE. ESTIMATED GFR IS NOT APPLICABLE FOR DIALYSIS PATIENTS. FastingCBC W/PLT COUNT & AUTO [id number] 08:24:00 Test Item Value Reference Range Comments WHITE BLOOD CELL COUNT (BEAKER) (test avhs=074) 5.7 K/ L 3.5-10.5 RED BLOOD CELL COUNT (BEAKER) (test fywp=322) 4.23 M/ L 4.63-6.08 HEMOGLOBIN (BEAKER) (test dclf=358) 12.3 GM/DL 13.7-17.5 HEMATOCRIT (BEAKER) (test myxe=001) 37.9 % 40.1-51.0 MEAN CORPUSCULAR VOLUME (BEAKER) (test tybk=298) 89.6 fL 79.0-92.2 MEAN CORPUSCULAR HEMOGLOBIN (BEAKER) (test 29.1 pg 25.7-32.2 eock=011) MEAN CORPUSCULAR HEMOGLOBIN CONC (BEAKER) (test 32.5 GM/DL 32.3-36.5 dzle=983) RED CELL DISTRIBUTION WIDTH (BEAKER) (test 15.9 % 11.6-14.4 btin=164) PLATELET COUNT (BEAKER) (test zcbk=758) 156 K/CU MM 150-450 MEAN PLATELET VOLUME (BEAKER) (test eyab=237) 10.2 fL 9.4-12.4 NUCLEATED RED BLOOD CELLS (BEAKER) (test 0 /100 WBC 0-0 iyaz=581) NEUTROPHILS RELATIVE PERCENT (BEAKER) (test 47 % kran=615) LYMPHOCYTES RELATIVE PERCENT (BEAKER) (test 37 % zdar=242) MONOCYTES RELATIVE PERCENT (BEAKER) (test 12 % mkcw=143) EOSINOPHILS RELATIVE PERCENT (BEAKER) (test 3 % hgha=760) BASOPHILS RELATIVE PERCENT (BEAKER) (test 2 % esnq=683) NEUTROPHILS ABSOLUTE COUNT (BEAKER) (test 2.66 K/ L 1.78-5.38 fwhv=688) LYMPHOCYTES ABSOLUTE COUNT (BEAKER) (test 2.09 K/ L 1.32-3.57 dykw=714) MONOCYTES ABSOLUTE COUNT (BEAKER) (test 0.70 K/ L 0.30-0.82 okkg=125) EOSINOPHILS ABSOLUTE COUNT (BEAKER) (test 0.15 K/ L 0.04-0.54 tzke=657) BASOPHILS ABSOLUTE COUNT (BEAKER) (test 0.09 K/ L 0.01-0.08 chst=864) IMMATURE GRANULOCYTES-RELATIVE PERCENT (BEAKER) 1 % 0-1 (test gxrg=4750) TSH/FREE T4 IF [id number] 03:38:00 Test Item Value Reference Range Comments THYROID STIMULATING HORMONE (BEAKER) (test 2.01 uIU/mL 0.35-4.94 qtle=983) VITAMIN B12 AND [id number] 03:38:00 Test Item Value Reference Range Comments VITAMIN B12 (BEAKER) (test mejt=714) 1008 pg/mL 213-816 FOLATE (BEAKER) (test ppdy=510) 8.4 ng/mL >=7.0 CREATINE KINASE (CK), TOTAL AND [id number] 01:03:00 Test Item Value Reference Range Comments CREATINE KINASE TOTAL (BEAKER) (test trhu=887) 66 U/L 29-200 CREATINE KINASE-MB (BEAKER) (test sfui=012) 1.4 ng/mL 0.0-6.6 CREATINE KINASE-MB INDEX (BEAKER) (test dltd=318) 2.1 % CK-MB Reference Range:<6.7 Normal6.7-10.0 Borderline>10.0 AbnormalTROPONIN [id number] 01:03:00 Test Item Value Reference Range Comments TROPONIN I (BEAKER) (test jkwq=287) 0.02 ng/mL 0.00-0.03 Troponin I (TnI) levels [...] acute neurological disease, and persistent tachyarrhythmia.BASIC METABOLIC [id number] 00:56:00 Test Item Value Reference Range Comments SODIUM (BEAKER) (test 136 meq/L 136-145 twzl=272) POTASSIUM (BEAKER) (test 3.9 meq/L 3.5-5.1 ovni=154) CHLORIDE (BEAKER) (test 104 meq/L 98-107 ntcr=166) CO2 (BEAKER) (test 24 meq/L 22-29 ttcu=493) BLOOD UREA NITROGEN 14 mg/dL 7-21 (BEAKER) (test buvr=985) CREATININE (BEAKER) (test 0.87 mg/dL 0.57-1.25 fzxb=709) GLUCOSE RANDOM (BEAKER) 104 mg/dL 70-105 (test pzyi=831) CALCIUM (BEAKER) (test 9.2 mg/dL 8.4-10.2 hwct=397) EGFR (BEAKER) (test 87 mL/min/1.73 sq m ESTIMATED GFR IS NOT zahn=6262) ACCURATE CREATININE CLEARANCE IN PREDICTING GLOMERULAR FILTRATION RATE. ESTIMATED GFR IS NOT APPLICABLE FOR DIALYSIS PATIENTS. PROTHROMBIN TIME/[id number] 00:27:00 Test Item Value Reference Range Comments PROTIME (BEAKER) (test ktsw=027) 17.2 seconds 11.7-14.7 INR (BEAKER) (test jnei=203) 1.4 <=5.9 RECOMMENDED COUMADIN/WARFARIN INR THERAPY RANGESSTANDARD DOSE: 2.0 - 3.0 Includes: PROPHYLAXIS forvenous thrombosis, systemic embolization; TREATMENT for venous thrombosis and/or pulmonary embolus.HIGH RISK: Target INR is 2.5-3.5 for patients with mechanical heart valves.CBC W/PLT COUNT & AUTO [id number] 00:01:00 Test Item Value Reference Range Comments WHITE BLOOD CELL COUNT (BEAKER) (test mklj=480) 8.2 K/ L 3.5-10.5 RED BLOOD CELL COUNT (BEAKER) (test srtw=269) 4.57 M/ L 4.63-6.08 HEMOGLOBIN (BEAKER) (test ipam=054) 13.2 GM/DL 13.7-17.5 HEMATOCRIT (BEAKER) (test sbil=077) 40.5 % 40.1-51.0 MEAN CORPUSCULAR VOLUME (BEAKER) (test jorh=640) 88.6 fL 79.0-92.2 MEAN CORPUSCULAR HEMOGLOBIN (BEAKER) (test 28.9 pg 25.7-32.2 nvos=935) MEAN CORPUSCULAR HEMOGLOBIN CONC (BEAKER) (test 32.6 GM/DL 32.3-36.5 lpgg=842) RED CELL DISTRIBUTION WIDTH (BEAKER) (test 15.9 % 11.6-14.4 ynui=584) PLATELET COUNT (BEAKER) (test ebsl=775) 198 K/CU MM 150-450 MEAN PLATELET VOLUME (BEAKER) (test piyo=919) 11.2 fL 9.4-12.4 NUCLEATED RED BLOOD CELLS (BEAKER) (test 0 /100 WBC 0-0 nmug=477) NEUTROPHILS RELATIVE PERCENT (BEAKER) (test 57 % zcii=482) LYMPHOCYTES RELATIVE PERCENT (BEAKER) (test 28 % jdmc=459) MONOCYTES RELATIVE PERCENT (BEAKER) (test 10 % yqir=442) EOSINOPHILS RELATIVE PERCENT (BEAKER) (test 3 % gunq=510) BASOPHILS RELATIVE PERCENT (BEAKER) (test 1 % djhw=655) NEUTROPHILS ABSOLUTE COUNT (BEAKER) (test 4.66 K/ L 1.78-5.38 kuvk=937) LYMPHOCYTES ABSOLUTE COUNT (BEAKER) (test 2.29 K/ L 1.32-3.57 dafm=238) MONOCYTES ABSOLUTE COUNT (BEAKER) (test 0.81 K/ L 0.30-0.82 jkkb=061) EOSINOPHILS ABSOLUTE COUNT (BEAKER) (test 0.25 K/ L 0.04-0.54 jmip=232) BASOPHILS ABSOLUTE COUNT (BEAKER) (test 0.10 K/ L 0.01-0.08 ksbw=622) IMMATURE GRANULOCYTES-RELATIVE PERCENT (BEAKER) 1 % 0-1 (test dvrz=8945)
[2018-05-28] MEDS ORDERED: FAMOTIDINE 20 MG/2 ML VIAL IV ONE (15:15)
[2018-05-28] MEDS ORDERED: ONDANSETRON 4 MG/2 ML VIAL ONE (15:15)
[2018-05-28] MEDS ORDERED: NA CHLORIDE 0.9% 1,000 ML ONE (15:16)
[2018-05-28 15:21] LABS: Protime INR 1.07
[2018-05-28] MEDS ORDERED: MORPHINE 4 MG/ML SYR ONE (15:26)
[2018-05-28 15:34] LABS: ALT/SGPT 17 U/L (12-78); AST/SGOT 17 U/L (15-37); Albumin 3.7 g/dL (3.4-5.0); Alkaline Phosphatase 144 U/L (45-117); BUN Blood Urea Nitrogen 10 mg/dL (7-18); Bicarbonate 28 mmol/L (21-32); Bilirubin Direct 0.1 mg/dL (0-0.2); Bilirubin Total 0.4 mg/dL (0.2-1.0); Glucose Level 100 mg/dL (74-106); Lipase 109 U/L (73-393); Magnesium 1.8 mg/dL (1.8-2.4); NT PRO-BNP 115 pg/mL (<125); Potassium 3.1 mmol/L (3.5-5.1); Protein, Total 7.8 g/dL (6.4-8.2); Sodium Level 135 mmol/L (136-145); Troponin (Emerg Dept Use Only) < 0.02 ng/mL (0.0-0.045)
--- NOTE | 2018-05-28 15:44 | RAD REPORT ---
EXAM DESCRIPTION: [facility] Single View05/28/2018 3:29 pm CLINICAL HISTORY: Chest pain COMPARISON: May 18, 2018 FINDINGS: The lungs appear clear of acute infiltrate. The heart is normal size. Pacemaker leads are in place. IMPRESSION: No acute abnormalities displayed
[2018-05-28 16:02] LABS: Absolute Lymphocytes (CBC) 1.4 K/uL (0.7-4.9); Absolute Monocytes 0.5 K/uL (0.1-1.3); Absolute Neutrophil 3.8 K/uL (1.8-8.0); Basophils % 0.9 % (0-1.3); Eosinophils % 1.1 % (0-4.4); Hematocrit 31.6 % (39.6-49.0); Lymphocytes % 23.7 % (15.3-44.8); Monocytes % 8.4 % (3.3-12.3); RBC Red Blood Cell Count 4.09 M/uL (4.33-5.43)
[2018-05-28] MEDS ORDERED: POTASSIUM 25 MEQ EFFERV TAB ONE (17:34)
--- NOTE | 2018-05-28 19:03 | EDPHYS ---
Physician Documentation [facility] Name: Maurice Morfin Age: 68 yrs Sex: Male : 1950 Arrival Date: 05/28/2018 Time: 14:38 Bed 7 Private MD: ED Physician Cameron Alonso HPI: 05/28 15:00 This 68 yrs old Male presents to ER via EMS with complaints of cp Nausea/Vomiting. 15:00 The patient presents to the emergency department with nausea, that is moderate, cp vomiting, 4 times today. Onset: The symptoms/episode began/occurred this morning. Possible causes: unknown. Associated signs and symptoms: Pertinent positives: chest pain, back pain. 15:00 Severity of symptoms: in the emergency department the symptoms are unchanged despite cp home interventions. Historical: - Allergies: 14:49 Codeine; ph - Home Meds: 14:49 losartan-hydrochlorothiazide 100-25 mg Oral tab [Active]; atorvastatin 80 mg Oral tab 1 ph tab once daily [Active]; clopidogrel 75 mg Oral tab 1 tab once daily [Active]; Nitroglycerin 0.4 SL Oral [Active]; pantoprazole 40 mg Oral TbEC 1 tab once daily [Active]; gabapentin 300 mg oral cap 1 cap 3 times per day [Active]; - PMHx: 14:49 Cholelithiasis; COPD; CVA; Dementia; enlarged prostate; Hernia; Hypertension; MT; PVD; ph TIA; - PSHx: 14:49 Heart stents; Leg stents; leg bypass; Pacemaker; Cholecystectomy; ph - Immunization history:: Adult Immunizations unknown. - Social history:: Smoking status: Patient/guardian denies using tobacco. - Ebola Screening: : No symptoms or risks identified at this time. ROS: 15:05 Constitutional: Negative for body aches, chills, fever, poor PO intake. cp 15:05 Eyes: Negative for injury, pain, redness, and discharge. cp 15:05 ENT: Negative for drainage from ear(s), ear pain, sore throat, difficulty swallowing, difficulty handling secretions. 15:05 Cardiovascular: Positive for chest pain, Negative for edema, palpitations. 15:05 Respiratory: Negative for cough, shortness of breath, wheezing. 15:05 Abdomen/GI: Positive for nausea, vomiting, Negative for abdominal pain, diarrhea, constipation, hematemesis, black/tarry stool, rectal bleeding. 15:05 Back: Positive for radiated pain. 15:05 Skin: Negative for cellulitis, rash. 15:05 Neuro: Negative for altered mental status, headache, syncope, weakness. 15:05 All other systems are negative. Exam: 15:00 ECG was reviewed by the Attending Physician. cp 15:10 Constitutional: The patient appears in no acute distress, alert, awake, cp non-diaphoretic, non-toxic, well developed, well nourished. 15:10 Head/Face: Normocephalic, atraumatic. cp 15:10 Eyes: Pupils equal round and reactive to light, extra-ocular motions intact. Lids and cp lashes normal. Conjunctiva and sclera are non-icteric and not injected. Cornea within normal limits. Periorbital areas with no swelling, redness, or edema. ENT: Nares patent. No nasal discharge, no septal abnormalities noted. Tympanic membranes are normal and external auditory canals are clear. Oropharynx with no redness, swelling, or masses, exudates, or evidence of obstruction, uvula midline. Mucous membranes moist. Neck: Trachea midline, no thyromegaly or masses palpated, and no cervical lymphadenopathy. Supple, full range of motion without nuchal rigidity, or vertebral point tenderness. No Meningismus. Chest/axilla: Normal chest wall appearance and motion. Nontender with no deformity. No lesions are appreciated. 15:10 Cardiovascular: Rate: normal, Rhythm: regular, Pulses: Pulses are 2+ in right radial cp artery and left radial artery. Edema: is not appreciated, JVD: is not appreciated. 15:10 Respiratory: the patient does not display signs of respiratory distress, Respirations: normal, no use of accessory muscles, no retractions, no splinting, no tachypnea, labored breathing, is not present, Breath sounds: are clear throughout, no decreased breath sounds, no stridor, no wheezing. 15:10 Abdomen/GI: Inspection: abdomen appears normal, Bowel sounds: active, all quadrants, Palpation: abdomen is soft and non-tender, in all quadrants, rebound tenderness, is not appreciated, voluntary guarding, is not appreciated, involuntary guarding, is not appreciated. 15:10 Back: pain, that is mild. 15:10 Skin: cellulitis, is not appreciated, no rash present. 15:10 Neuro: Orientation: to person, place \T\ time. Mentation: is normal, Cerebellar function: is grossly normal, Motor: moves all fours, strength is normal, Sensation: is normal. Vital Signs: 14:43 BP 152 / 62; Pulse 65; Resp 18; Pulse Ox 99% on R/A; Weight 67.13 kg; Height 5 ft. 9 ph in. (175.26 cm); Pain 8/10; 16:29 BP 119 / 65; Pulse 91; Resp 18; Pulse Ox 99% on R/A; ph 17:30 BP 122 / 78; Pulse 78; Resp 18; Pulse Ox 99% on R/A; ph 18:45 BP 116 / 77; Pulse 72; Resp 18; Temp 97.9; Pulse Ox 98% ; ph 19:25 BP 106 / 77; Pulse 62; Resp 18; Pulse Ox 97% on R/A; Pain 0/10; aa1 14:43 Body Mass Index 21.86 (67.13 kg, 175.26 cm) ph MDM: 14:42 Patient medically screened. cp 15:10 Differential diagnosis: gastritis, appendicitis, viral gastroenteritis, cp gastroenteritis, acute MT, angina, aortic dissection. 19:03 Data reviewed: vital signs, nurses notes, lab test result(s), EKG, radiologic studies, jr8 plain films. Data interpreted: Pulse oximetry: on room air is 99 %. Interpretation: normal. Counseling: I had a detailed discussion with the patient and/or guardian regarding: the historical points, exam findings, and any diagnostic results supporting the discharge/admit diagnosis, lab results, radiology results, the need for outpatient follow up, a pattern storage clerk, a family practitioner, to return to the emergency department if symptoms worsen or persist or if there are any questions or concerns that arise at home. Response to treatment: the patient's symptoms have resolved after treatment. 05/28 14:53 Order name: Basic Metabolic Panel; Complete Time: 15:45 cp 05/28 15:45 Interpretation: Normal except: NA 135; K 3.1; GFR 71. cp 05/28 14:53 Order name: CBC with Diff cp 05/28 16:32 Interpretation: Normal except: WBC 5.8; RBC 4.09; HGB 10.2; HCT 31.6; MCV 77.2; MCH cp 24.9; RDW 20.2. 05/28 14:53 Order name: LFT's; Complete Time: 15:45 cp 05/28 15:45 Interpretation: Normal except: ALK 144; GLOB 4.1; A/G 0.9. cp 05/28 14:53 Order name: Magnesium; Complete Time: 15:45 cp 05/28 14:53 Order name: NT PRO-BNP; Complete Time: 15:45 cp 05/28 14:53 Order name: PT-INR; Complete Time: 15:45 cp 05/28 14:53 Order name: Troponin (emerg Dept Use Only); Complete Time: 15:45 cp 05/28 14:53 Order name: XRAY Chest (1 view); Complete Time: 15:45 cp 05/28 14:53 Order name: Lipase; Complete Time: 15:45 cp 05/28 16:42 Order name: Influenza Screen (a \T\ B); Complete Time: 18:15 cp 05/28 17:38 Order name: Troponin I; Complete Time: 19:02 cp 05/28 14:53 Order name: EKG; Complete Time: 14:54 cp 05/28 14:53 Order name: Cardiac monitoring; Complete Time: 14:57 cp 05/28 14:53 Order name: EKG - Nurse/Tech; Complete Time: 16:13 cp 05/28 14:53 Order name: IV Saline Lock; Complete Time: 14:58 cp 05/28 14:53 Order name: Labs collected and sent; Complete Time: 14:58 cp 05/28 14:53 Order name: O2 Per Protocol; Complete Time: 14:58 cp 05/28 14:53 Order name: O2 Sat Monitoring; Complete Time: 14:58 cp 05/28 17:38 Order name: EKG; Complete Time: 17:42 cp 05/28 17:38 Order name: EKG - Nurse/Tech; Complete Time: 18:37 cp EC:00 Rate is 65 beats/min. Rhythm is regular. WI interval is normal. QRS interval is normal. cp QT interval is normal. T waves are Inverted in lead aVL. Interpreted by me. Reviewed by me. Administered Medications: 14:30 Drug: NS 0.9% 1000 ml Route: IV; Rate: 500 ml/hr; Site: right antecubital; ph 19:10 Follow up: Response: No adverse reaction; IV Status: Completed infusion ph 15:19 Drug: Zofran 4 mg Route: IVP; Site: right antecubital; ph 19:10 Follow up: Response: No adverse reaction ph 15:19 Drug: Pepcid 20 mg Route: IVP; Site: right antecubital; ph 19:10 Follow up: Response: No adverse reaction ph 15:19 Drug: morphine 4 mg Route: IVP; Site: right antecubital; ph 19:11 Follow up: Response: No adverse reaction; Pain is decreased ph 17:46 Drug: Potassium Effervescent Tablet 50 mEq Route: PO; ph 19:11 Follow up: Response: No adverse reaction ph Disposition: 05/28/18 19:02 Discharged to Home. Impression: Nausea and vomiting, Chest pain, unspecified. - Condition is Stable. - Discharge Instructions: Nonspecific Chest Pain, Nausea and Vomiting, Adult, Aspirin and Your Heart. - Prescriptions for Pepcid 20 mg Oral Tablet - take 1 tablet by ORAL route every 12 hours for 10 days; 20 tablet. Zofran 4 mg Oral Tablet - take 1 tablet by ORAL route every 12 hours As needed; 20 tablet. - Medication Reconciliation Form, Thank You Letter, Antibiotic Education, Prescription Opioid Use form. - Follow up: Private Physician; When: 2 - 3 days; Reason: Recheck today's complaints. - Problem is new. - Symptoms have improved. Addendum: 06/01/2018 21:54 Co-signature as Attending Physician, Cameron Alonso MD. g s Signatures: Dispatcher [employer] EDMS Megan Childress RN RN aa1 Alpesh Erickson PA PA jr8 Courtney Henderson RN RN ph Caio Wilde PA PA cp Starr, Gregory, MD MD gs Corrections: (The following items were deleted from the chart) 05/28 19:27 19:02 05/28/2018 19:02 Discharged to Home. Impression: Nausea and vomiting; Chest pain, aa1 unspecified. Condition is Stable. Discharge Instructions: Nonspecific Chest Pain, Nausea and Vomiting, Adult, Aspirin and Your Heart. Prescriptions for Pepcid 20 mg Oral Tablet - take 1 tablet by ORAL route every 12 hours for 10 days; 20 tablet, Zofran 4 mg Oral Tablet - take 1 tablet by ORAL route every 12 hours As needed; 20 tablet. and Forms are Medication Reconciliation Form, Thank You Letter, Antibiotic Education, Prescription Opioid Use. Follow up: Private Physician; When: 2 - 3 days; Reason: Recheck today's complaints. Problem is new. Symptoms have improved. jr8
--- NOTE | 2018-05-28 19:03 | ER ---
Nurse's Notes [facility] Name: Maurice Morfin Age: 68 yrs Sex: Male : 1950 Arrival Date: 05/28/2018 Time: 14:38 Bed 7 Private MD: Diagnosis: Nausea and vomiting;Chest pain, unspecified Presentation: 05/28 14:38 Presenting complaint: EMS states: N/V that began this morning, states that he has ph vomited approx 4 times today, brownish liquid, also c/o pain in back that radiates around to center of chest, denies abdominal pain or diarrhea, BGL 157, 2 mg Zofran administered IM. Transition of care: patient was not received from another setting of care. Onset of symptoms was May 28, 2018. Risk Assessment: Do you want to hurt yourself or someone else? Patient reports no desire to harm self or others. Initial Sepsis Screen: Does the patient meet any 2 criteria? No. Patient's initial sepsis screen is negative. Does the patient have a suspected source of infection? No. Patient's initial sepsis screen is negative. Care prior to arrival: None. 14:38 Method Of Arrival: EMS: [facility] 14:38 Acuity: WAYLON 3 ph Historical: - Allergies: 14:49 Codeine; ph - Home Meds: 14:49 losartan-hydrochlorothiazide 100-25 mg Oral tab [Active]; atorvastatin 80 mg Oral tab 1 ph tab once daily [Active]; clopidogrel 75 mg Oral tab 1 tab once daily [Active]; Nitroglycerin 0.4 SL Oral [Active]; pantoprazole 40 mg Oral TbEC 1 tab once daily [Active]; gabapentin 300 mg oral cap 1 cap 3 times per day [Active]; - PMHx: 14:49 Cholelithiasis; COPD; CVA; Dementia; enlarged prostate; Hernia; Hypertension; OR; PVD; ph TIA; - PSHx: 14:49 Heart stents; Leg stents; leg bypass; Pacemaker; Cholecystectomy; ph - Immunization history:: Adult Immunizations unknown. - Social history:: Smoking status: Patient/guardian denies using tobacco. - Ebola Screening: : No symptoms or risks identified at this time. Screenin:50 Abuse screen: Denies threats or abuse. Denies injuries from another. Nutritional ph screening: No deficits noted. Tuberculosis screening: No symptoms or risk factors identified. Fall Risk No fall in past 12 months (0 pts). Secondary diagnosis (15 points) dementia, IV access (20 points). Ambulatory Aid- None/Bed Rest/Nurse Assist (0 pts). Gait- Weak (10 pts.). Mental Status- Oriented to own ability (0 pts). Total Gudino Fall Scale indicates Low Risk Score (25-44 pts). Fall prevention measures have been instituted. Side Rails Up X 2 Placed close to Nursing Station Frequent Obs/Assesments occuring As available Patient and Family Educated on Fall Prevention Program and strategies. Assessment: 14:53 General: Appears in no apparent distress. uncomfortable, slender, Behavior is calm, ph cooperative, appropriate for age. Pain: Complains of pain in diaphragm and xyphoid area Pain radiates to back. Neuro: Level of Consciousness is awake, alert, obeys commands, Oriented to person, place, time, situation, Reports dizziness, Denies blurred vision headache. Cardiovascular: Reports chest pain, lightheadedness, nausea, vomiting, Denies palpitations, shortness of breath, Capillary refill < 3 seconds in bilateral fingers Patient's skin is warm and dry. Rhythm is sinus rhythm. Respiratory: Airway is patent Respiratory effort is even, unlabored, Respiratory pattern is regular, Breath sounds are clear bilaterally. GI: Abdomen is flat, non-distended, Bowel sounds present X 4 quads. Reports nausea, vomiting, Patient currently denies abdominal pain, diarrhea. Derm: Skin is intact, Skin is pink, warm \T\ dry. Musculoskeletal: Circulation, motion, and sensation intact. Range of motion: intact in all extremities. 16:29 Reassessment: Patient appears in no apparent distress at this time. Patient and/or ph family updated on plan of care and expected duration. Pain level reassessed. Patient is alert, oriented x 3, equal unlabored respirations, skin warm/dry/pink. Pt resting quietly, awaiting lab results, VSS. 18:00 Reassessment: Patient appears in no apparent distress at this time. Patient and/or ph family updated on plan of care and expected duration. Pain level reassessed. Patient is alert, oriented x 3, equal unlabored respirations, skin warm/dry/pink. 19:11 Reassessment: Patient appears in no apparent distress at this time. Patient and/or ph family updated on plan of care and expected duration. Pain level reassessed. Patient is alert, oriented x 3, equal unlabored respirations, skin warm/dry/pink. Contacted pt's son who said that he would come and pick pt up after d/c. 19:25 Reassessment: Patient appears in no apparent distress at this time. Patient is alert, aa1 oriented x 3, equal unlabored respirations, skin warm/dry/pink. Discussed d/c \T\ f/u instructions with pt; denies questions or concerns at this time Patient denies pain at this time. Patient states feeling better. Vital Signs: 14:43 BP 152 / 62; Pulse 65; Resp 18; Pulse Ox 99% on R/A; Weight 67.13 kg; Height 5 ft. 9 ph in. (175.26 cm); Pain 8/10; 16:29 BP 119 / 65; Pulse 91; Resp 18; Pulse Ox 99% on R/A; ph 17:30 BP 122 / 78; Pulse 78; Resp 18; Pulse Ox 99% on R/A; ph 18:45 BP 116 / 77; Pulse 72; Resp 18; Temp 97.9; Pulse Ox 98% ; ph 19:25 BP 106 / 77; Pulse 62; Resp 18; Pulse Ox 97% on R/A; Pain 0/10; aa1 14:43 Body Mass Index 21.86 (67.13 kg, 175.26 cm) ph ED Course: 14:38 Patient arrived in ED. ph 14:42 Caio Wilde PA is PHCP. cp 14:42 Cameron Alonso MD is Attending Physician. cp 14:43 Triage completed. ph 14:50 Arm band placed on. ph 14:50 Initial lab(s) drawn, by me, sent to lab. ca1 14:50 Missed attempt(s): 20 gauge in left upper arm. Bleeding controlled, band aid applied, ca1 catheter tip intact. 14:52 Patient has correct armband on for positive identification. Placed in gown. Bed in low ph position. Call light in reach. Side rails up X2. chancery clerk on. Pulse ox on. NIBP on. Warm blanket given. 14:52 No provider procedures requiring assistance completed. ph 15:03 Courtney Hnederson, RN is Primary Nurse. ph 15:22 XRAY Chest (1 view) In Process Unspecified. EDMS 18:03 PHCP role handed off by Caio Wilde PA jr8 18:03 Alpesh Erickson PA is PHCP. jr8 18:36 EKG done, by ED staff, reviewed by Alpesh BROCK. 3 19:13 IV discontinued, intact, bleeding controlled, No redness/swelling at site. Pressure ph dressing applied. Administered Medications: 14:30 Drug: NS 0.9% 1000 ml Route: IV; Rate: 500 ml/hr; Site: right antecubital; ph 19:10 Follow up: Response: No adverse reaction; IV Status: Completed infusion ph 15:19 Drug: Zofran 4 mg Route: IVP; Site: right antecubital; ph 19:10 Follow up: Response: No adverse reaction ph 15:19 Drug: Pepcid 20 mg Route: IVP; Site: right antecubital; ph 19:10 Follow up: Response: No adverse reaction ph 15:19 Drug: morphine 4 mg Route: IVP; Site: right antecubital; ph 19:11 Follow up: Response: No adverse reaction; Pain is decreased ph 17:46 Drug: Potassium Effervescent Tablet 50 mEq Route: PO; ph 19:11 Follow up: Response: No adverse reaction ph Outcome: 19:02 Discharge ordered by . jr8 19:25 Discharged to home ambulatory, with family. aa1 19:25 Condition: good 19:25 Discharge instructions given to patient, Instructed on discharge instructions, follow up and referral plans. medication usage, Demonstrated understanding of instructions, follow-up care, medications, Prescriptions given X 2. 19:27 Patient left the ED. aa1 Signatures: Dispatcher [employer] EDPA Megan Childress RN RN aa1 Alpesh Erickson PA PA jr8 Courtney Henderson RN RN ph Caio Wilde PA PA cp Herrera, Deanna 3 Renea Shafer RN RN ca1
[2018-05-28 20:05] VITALS: TEMP 97.9
[2018-05-28 20:06] VITALS: BP 106/77; O2SAT 97
[2018-05-28 21:07] LABS: Anisocytosis 2+; Blood Morphology Comment NOTED (NOT SEEN); Platelet Estimate ADEQ; Poikilocytosis 1+; Urine White Blood Cell Casts OK
[2018-05-28 21:08] LABS: Ovalocytes SLIGHT
--- NOTE | 2018-05-29 09:41 | EKG ---
Test Date: 2018-05-28 Test Time: 18:31:30 Synchronous Motor Assembler: JOSSELYN MEASUREMENT RESULTS: Intervals: Rate: 60 MA: 140 QRSD: 80 QT: 390 QTc: 390 [place]: P: -24 MA: 140 QRS: 37 T: 65 INTERPRETIVE STATEMENTS: Electronic atrial pacemaker Compared to ECG 05/28/2018 14:43:03 Sinus rhythm no longer present ST (T wave) deviation no longer present Electronically Signed On 05-29-18 09:40:05 CDT by Epifanio Gonzalez
--- NOTE | 2018-05-29 09:43 | EKG ---
Test Date: 2018-05-28 Test Time: 14:43:03 Fuel Cell Battery Technician: MIK MEASUREMENT RESULTS: Intervals: Rate: 65 UT: 164 QRSD: 84 QT: 404 QTc: 420 [place]: P: 57 UT: 164 QRS: 40 T: 65 INTERPRETIVE STATEMENTS: Normal sinus rhythm ST abnormality, possible digitalis effect Abnormal ECG Compared to ECG 05/18/2018 19:08:26 ST (T wave) deviation now present Atrial-paced complex(es) or rhythm no longer present Electronically Signed On 05-29-18 09:42:05 CDT by Epifanio Gonzalez
== END 2018-05-28 19:27 | disposition home or self-care (01) ==
LOC: ER 14:36
DX: R07.9 Chest pain, unspecified (principal); I10 Essential (primary) hypertension; I25.2 Old myocardial infarction; F03.90 Unspecified dementia, unspecified severity, without behavioral disturbance, psychotic disturbance, mood disturbance, and anxiety; J44.9 Chronic obstructive pulmonary disease, unspecified; Z88.5 Allergy status to narcotic agent; Z95.0 Presence of cardiac pacemaker; Z95.818 Presence of other cardiac implants and grafts
CPT/HCPCS: 96361; 93005 ×2; 85025; 80048; 36415; 83735; 85610; 80076; 84484 ×2; 83690; 83880; 87804 ×2; 71045; 96375; 96374; 99285; J7030; J2405

== ENCOUNTER 2018-06-06 15:03 | Emergency (ER) | payer OTHER ==
--- OUTSIDE RECORDS SUMMARY | 2018-06-06 15:27 | XMS REPORT | Clinical Summary ---
:1950 Demographics Address [address] [place] [address] Home Phone Mobile Phone Preferred Language [place] Islander Marital Status Unknown Uatsdin Affiliation Unknown Race White Ethnic Group Not or Author Organization [facility] Address [address] [place] [address] Support Name Relationship Address Phone Mami Pena [address] [place] [address] Kvng Pena [address] [place] [address] Care Team Providers Name Role Phone Yung [...] Dx); 04/10/2018 DO PVD (peripheral vascular disease) ([facility]); Devante Rodriguez Current smoker; MD Luis Hypertensive urgency 04/06/2018 Travel 11/30/2017 - Hospital Encounter Intensive Care Eze Gil ACS (acute coronary 12/02/2017 MD Jose syndrome) ([facility]) after 06/05/2017 Family History Medical History Relation Name Comments [...] Taken Blood Pressure 147/67 04/09/2018 3:23 PM WASTE DUSTER Pulse 60 04/09/2018 3:23 PM WASTE DUSTER Temperature 36.4 C (97.6 F) 04/09/2018 3:23 PM WASTE DUSTER Respiratory Rate 18 04/09/2018 3:23 PM WASTE DUSTER Oxygen Saturation 97% 04/09/2018 3:23 PM WASTE DUSTER Inhaled Oxygen Concentration - - Weight 69.7 kg (153 lb 9.6 oz) 04/08/2018 6:29 AM WASTE DUSTER Height 175.3 cm (5' 9") 04/06/2018 1:19 PM WASTE DUSTER Body Mass Index 22.68 04/08/2018 6:29 AM WASTE DUSTER Plan of Treatment Not on file Implants Implanted Type Area Powder Press Operator Device Shelf Model / Identifier Expiration Serial / Date Lot Grft Eptfe-Heparin Rng [id number] - [id number] Graft/Pa N/A: MARIELENA PRESCOTT & 09/01/2019 [id number] / Implanted: Qty: 1 on 01/13/2016 by Oniel Smith MD [facility] Arterial ASSC: MED PRDT [id number] / Procedures Procedure Name Priority Date/Time Associated Comments Diagnosis VASCULAR DIAGRAM 05/05/2018 4:01 -SCAN PM WASTE DUSTER CARDIAC CATH REPORT - 04/25/2018 2:01 SCAN PM WASTE DUSTER RHYTHM STRIP - SCAN 04/25/2018 2:01 PM WASTE DUSTER VASCULAR DIAGRAM 04/25/2018 2:01 -SCAN PM WASTE DUSTER TRANSFUSION SERVICE 04/09/2018 6:00 REPORT - SCAN PM WASTE DUSTER CBC W/PLT COUNT & Routine 04/09/2018 3:55 Results for this AUTO DIFFERENTIAL AM WASTE DUSTER procedure are in the results section. MAGNESIUM Routine 04/09/2018 3:55 Results for this AM WASTE DUSTER procedure are in the results section. BASIC METABOLIC PANEL Routine 04/09/2018 3:55 Results for this (7) AM WASTE DUSTER procedure are in the results section. CBC W/PLT COUNT & Routine 04/09/2018 3:55 Results for this AUTO DIFFERENTIAL AM WASTE DUSTER procedure are in the results section. POCT-ACT Routine 04/08/2018 7:42 Results for this PM WASTE DUSTER procedure are in the results section. PERIPHERAL ANGIOS / 04/08/2018 3:53 PAD (peripheral AORTOGRAM PM WASTE DUSTER artery disease) (HCC) APTT Routine 04/08/2018 8:31 Results for this AM WASTE DUSTER procedure are in the results section. TYPE AND SCREEN, Routine 04/08/2018 6:03 Results for this AUTOMATED AM WASTE DUSTER procedure are in the results section. LACTIC ACID, VENOUS Routine 04/08/2018 6:03 Results for this AM WASTE DUSTER procedure are in the results section. CREATINE KINASE (CK) Routine 04/08/2018 6:03 Results for this AM WASTE DUSTER procedure are in the results section. APTT Routine 04/08/2018 2:34 Results for this AM WASTE DUSTER procedure are in the results section. NERVE CONDUCTION Routine 04/07/2018 6:25 Results for this STUDIES; 3-4 STUDIES PM WASTE DUSTER procedure are in the results section. CT/CTA AAA AND RUNOFF STAT 04/07/2018 2:43 Results for this PM WASTE DUSTER procedure are in the results section. VENOUS DOPPLER LEG, Routine 04/07/2018 1:52 Results for this RIGHT PM WASTE DUSTER procedure are in the results section. ECG 12-LEAD Routine 04/07/2018 11:08 AM WASTE DUSTER Procedure Note - Interface, External Ris In - 04/07/2018 11:18 AM WASTE DUSTER Ventricular Rate 60 BPM Atrial Rate 60 BPM P-R Interval 164 ms QRS Duration 92 ms Q-T Interval 398 ms QTC Calculation(Bazett) 398 ms R Dallas 4 degrees T Dallas 64 degrees Electronic atrial pacemaker When compared with ECG of 07-APR-2018 11:07, No significant change was found ECG 12-LEAD Routine 04/07/2018 11:07 AM WASTE DUSTER Procedure Note - Interface, External Ris In - 04/07/2018 11:17 AM WASTE DUSTER Ventricular Rate 60 BPM Atrial Rate 60 BPM P-R Interval 164 ms QRS Duration 90 ms Q-T Interval 396 ms QTC Calculation(Bazett) 396 ms P Dallas -12 degrees R Dallas 6 degrees T Dallas 60 degrees Electronic atrial pacemaker When compared with ECG of 01-DEC-2017 11:15, No significant change was found ECG 12-LEAD STAT 04/07/2018 11:07 AM WASTE DUSTER TROPONIN I Routine 04/07/2018 11:05 AM WASTE DUSTER ECHOCARDIOGRAM REPORT - 04/07/2018 9:50 AM WASTE DUSTER SCAN 2D ECHO W/ DOPPLER Routine 04/06/2018 9:45 PM WASTE DUSTER Results for this (CW/PW/COLOR) procedure are in the results section. ARTERIAL DOPPLER LEGS LORAINE 04/06/2018 7:30 PM WASTE DUSTER Results for this BILATERAL procedure are in the results section. CBC W/PLT COUNT & AUTO STAT 04/06/2018 3:47 PM WASTE DUSTER Results for this DIFFERENTIAL procedure are in the results section. BASIC METABOLIC PANEL (7) STAT 04/06/2018 3:47 PM WASTE DUSTER PT/APTT STAT 04/06/2018 3:47 PM WASTE DUSTER CBC W/PLT COUNT & AUTO STAT 04/06/2018 3:47 PM WASTE DUSTER Results for this DIFFERENTIAL procedure are in the results section. ARRYTHMIA IMPLANT REPORT - 02/03/2018 2:53 PM WASTE DUSTER SCAN ARRYTHMIA IMPLANT REPORT - 12/25/2017 8:00 [...] (7) Routine 11/30/2017 5:41 PM CDT after 06/05/2017 Results VASCULAR DIAGRAM -SCAN (05/05/2018 4:01 PM WASTE DUSTER)Only the most recent of2 resultswithin the time period is included. Narrative Performed At CARDIAC CATH REPORT - SCAN (04/25/2018 2:01 PM WASTE DUSTER) Narrative Performed At RHYTHM STRIP - SCAN (04/25/2018 2:01 PM WASTE DUSTER)Only the most recent of2 resultswithin the time period is included. Narrative Performed At TRANSFUSION SERVICE REPORT - SCAN (04/09/2018 6:00 PM WASTE DUSTER)Only the most recent of2 resultswithin the time period is included. Narrative Performed At CBC with platelet count + automated diff (04/09/2018 3:55 AM WASTE DUSTER)Only the most recent of5 resultswithin the time period is included. WBC 4.7 3.5 - 10.5 K/L [facility] RBC 3.54 (L) 4.63 - 6.08 M/L [facility] Hemoglobin 8.8 (L) 13.7 - 17.5 GM/DL [facility] Hematocrit 28.9 (L) 40.1 - 51.0 % [facility] MCV 81.6 79.0 - 92.2 fL [facility] MCH 24.9 (L) 25.7 - 32.2 pg [facility] MCHC 30.4 (L) 32.3 - 36.5 GM/DL [facility] RDW 18.3 (H) 11.6 - 14.4 % [facility] Platelets 156 150 - 450 K/CU MM [facility] MPV 11.0 9.4 - 12.4 fL [facility] nRBC 0 0 - 0 /100 WBC [facility] % Neutros 55 % [facility] % Lymphs 29 % [facility] % Monos 11 % [facility] % Eos 3 % [facility] % Baso 2 % [facility] # Neutros 2.59 1.78 - 5.38 K/L [facility] # Lymphs 1.34 1.32 - 3.57 K/L [facility] # Monos 0.51 0.30 - 0.82 K/L [facility] # Eos 0.15 0.04 - 0.54 K/L [facility] # Baso 0.07 0.01 - 0.08 K/L [facility] Immature Granulocytes-Relative 1 0 - 1 % [facility] Specimen Blood Performing Organization Address City/State/Zipcode Phone Number [facility] [address] [place] [address] [phone] CENTER Magnesium (04/09/2018 3:55 AM WASTE DUSTER)Only the most recent of2 resultswithin the time period is included. Magnesium 1.9 1.6 - 2.6 mg/dL [facility] Specimen Blood Performing Organization Address City/[facility] Phone Number [address] [address] [phone] [place] Basic Metabolic Panel (04/09/2018 3:55 AM WASTE DUSTER)Only the most recent of5 resultswithin the time period is included. Sodium 136 136 - 145 meq/L [facility] Potassium 3.8 3.5 - 5.1 meq/L [facility] Chloride 107 98 - 107 meq/L [facility] CO2 24 22 - 29 meq/L [facility] BUN 14 7 - 21 mg/dL [facility] Creatinine 0.84 0.57 - 1.25 mg/dL [facility] Glucose 113 (H) 70 - 105 mg/dL [facility] Calcium 8.1 (L) 8.4 - 10.2 mg/dL [facility] EGFR 91Comment: ESTIMATED GFR IS mL/min/1.73 sq m [facility] NOT ACCURATE CREATININE [facility] CENTER CLEARANCE IN PREDICTING GLOMERULAR FILTRATION RATE. ESTIMATED GFR IS NOT APPLICABLE FOR DIALYSIS PATIENTS. Specimen Blood Performing Organization Address [facility] Phone Number [address] [address] [place] POC ACTIVATED CLOTTING TIME (04/08/2018 7:42 PM WASTE DUSTER) Activated Clotting Time 158Comment: TESTED AT sec [facility] BSC [address] [place] [id number] Specimen Blood Performing Organization Address City/[facility] Phone Number [address] [phone] [place] aPTT (04/08/2018 8:31 AM WASTE DUSTER)Only the most recent of2 resultswithin the time period is included. PTT 76.2 (H) 22.5 - 36.0 seconds [facility] Specimen Blood Performing Organization Address City/[facility] Phone Number [address] [address] CENTER Type and screen, automated (04/08/2018 6:03 AM WASTE DUSTER)Only the most recent of2 resultswithin the time period is included. ABO/RH AUTOMATED (BEAKER) O POSITIVE [facility] Ab Scrn NEGATIVE [facility] Specimen Blood Performing Organization Address City/[facility] Phone Number [address] [address] [phone] Lactic acid, venous, whole blood (04/08/2018 6:03 AM WASTE DUSTER) Lactate, Venous 1.1 0.5 - 2.2 mmol/L [facility] Specimen Blood Performing Organization Address City/[facility] Phone Number [address] [phone] [place] Creatine Kinase (CK) (04/08/2018 6:03 AM WASTE DUSTER) Total CK 74 29 - 200 U/L [facility] Specimen Blood Performing Organization Address City/[facility] Phone Number [address] [address] [place] NERVE CONDUCTION STUDIES; 3-4 STUDIES (04/07/2018 6:25 PM WASTE DUSTER) Narrative Performed At [facility] Neurophysiology Department ELECTROMYOGRAPHY / NERVE CONDUCTION STUDY [address] [place] [address] [address] [place] [address] Name: Mami Pena Address:Date of [...] External Ris In - 04/08/2018 6:53 AM WASTE DUSTER [facility] Neurophysiology Department ELECTROMYOGRAPHY / NERVE CONDUCTION STUDY [address] [facility] [address] [place] [address] Name: Mami Pena Address: Date of : [...] denervation in the right lower limb. Melody Benaviedz M.D. Performing Organization Address City/State/Zipcode Phone Number [facility] CTA AAA and Runoff (04/07/2018 2:43 PM WASTE DUSTER) Narrative Performed At Addendum Begins [place] REPORT STATUS:A Addendum: I agree with the previously described non vascular findings. Signed: Angel Payne MD Report Verified Date/Time:04/07/2018 16:54:33 Reading Location: [facility] P048 Angio Body Reading Room Addendum Ends [...] dictated regarding the non-vascular findings by the Starch Dumper Radiologist. Signed: Steve Musa MD Report Verified Date/Time:04/07/2018 15:32:19 Reading Location: [place] [address] Cardiology MRI Procedure Note Interface, External Ris In - 04/08/2018 10:27 PM WASTE DUSTER Addendum Begins REPORT STATUS:A Addendum: I agree with the previously described non vascular findings. Signed: Angel Payne MD Report Verified Date/Time: 04/07/2018 16:54:33 Reading Location: [facility] P048 Angio Body Reading Room Addendum Ends [...] dictated regarding the non-vascular findings by the Starch Dumper Radiologist. Signed: Steve Musa MD Report Verified Date/Time: 04/07/2018 15:32:19 Reading Location: [place] [address] Cardiology MRI Performing Organization Address City/State/Zipcode Phone Number [email or web address] RIS Venous doppler leg, right (04/07/2018 1:52 PM WASTE DUSTER) Ejection Fraction [facility] MK[facility] CPACS Impressions Performed At Right Impression [facility] 1. There is [...] PV LAB - Lower Extremities DVT Study [facility] Demographics Patient Name Tyron PENA of Study 04/07/2018 [id number] Age 68 Visit Number [id number] GenderMale Accession Number [id number] Date of 1950 [facility] Number 1155 Physician SonographerGkolton Cruz.Capri Ramírez RVT, ARS Physician Procedure Type of Study: Veins: Lower Extremities DVT Study, VENOUS DOPPLER LEG, RIGHT. Indications for Study:Leg pain . Patient Status:Routine. Study Location:Vascular Lab. Technical Quality:Adequate visualization. Risk Factors History of Disease + + + + !Diagnosis !Date!Comments ! + + + + !History/Risk!03/12/2017!Stroke, Current Smoker, PAD, HTN, HLD, CAD, ! 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 + + + + Procedure Note Interface, External Ris In - 04/07/2018 4:03 PM WASTE DUSTER PV LAB - Lower Extremities DVT Study Demographics Patient Name MAMI PENA Date of Study 04/07/2018 Age 68 Visit Number [id number] Gender Male Accession Number [id number] Date of 1950 Referring Christin Ferraro Room Number 1155 Physician Bookkeeping Service Sales Agent Jimmy Cruz. Interpreting Shivani Ramírez RVT, ARDMS Physician Procedure Type of Study: Veins: Lower Extremities DVT Study, VENOUS DOPPLER LEG, RIGHT. Indications for Study:Leg pain . Patient Status:Routine. Study Location:Vascular Lab. Technical Quality:Adequate visualization. Risk Factors History of Disease + + + + !Diagnosis !Date !Comments ! + + + + !History/Risk !03/12/2017!Stroke, Current Smoker, PAD, HTN, HLD, CAD, ! !Factors: ! !COPD, UT, Pacemaker, Fem-fem Bypass (2016) ! + + [...] are measured in cm Performing Organization Address City/State/[facility] Phone Number [facility] ECG 12 lead (04/07/2018 11:07 AM WASTE DUSTER)Only the most recent of4 resultswithin the time period is included. Narrative Performed At Ventricular Rate 60 BPM [place] Atrial Rate 60 BPM P-R Interval 164 ms QRS Duration 90 ms Q-T Interval 396 ms QTC Calculation(Bazett) 396 ms P Dallas -12 degrees R Dallas 6 degrees T Dallas 60 degrees Electronic atrial pacemaker When compared with ECG of 01-DEC-2017 11:15, No significant change was found Confirmed by Tyler Hickman ([id number]) on 04/07/2018 8:25:38 PM Procedure Note Interface, External Ris In - 04/07/2018 8:25 PM WASTE DUSTER Ventricular Rate 60 BPM Atrial Rate 60 BPM P-R Interval 164 ms QRS Duration 90 ms Q-T Interval 396 ms QTC Calculation(Bazett) 396 ms P Dallas -12 degrees R Dallas 6 degrees T Dallas 60 degrees Electronic atrial pacemaker When compared with ECG of 01-DEC-2017 11:15, No significant change was found Confirmed by Tyler Hickman ([id number]) on 04/07/2018 8:25:38 PM Performing Organization Address City/State/Zipcode Phone Number GE MUSE Troponin I (04/07/2018 11:05 AM WASTE DUSTER)Only the most recent of5 resultswithin the time period is included. Troponin I <0.01 0.00 - 0.03 ng/mL [facility] Specimen Blood Narrative Performed At Troponin I (TnI) levels must be interpreted [facility] in the context of the presenting symptoms [...] tachyarrhythmia. Performing Organization Address City/State/Zipcode Phone Number [facility] [address] [place] [address] [phone] CENTER ECHOCARDIOGRAM REPORT - SCAN (04/07/2018 9:50 AM WASTE DUSTER) Narrative Performed At 2D Echo W/Doppler(CW/PW/Color) (04/06/2018 9:45 PM WASTE DUSTER) Ejection Fraction [facility] Narrative Performed At Transthoracic Echocardiography Report (TTE) [facility] Dem[facility] Patient Name JEAN, Date of Study 04/06/2018 MAMI [id number] GenderMale Visit Number [id number] [id number] Room Number 1155 Number Date of Birth1950Referring Physician Christin Ferraro Age68 year(s)Bookkeeping Service Sales Agent Krista Villatoro RDCS, RVT Connie Webb MD Physician Procedure Type of Study TTE procedure:2DECHO W DOPPLER(CW/PW/COLOR) (Routine) Indications:Acute Chest Pain/ Suspected CAD. Clinical History COPD, CAD, CVA, HTN, HLD,UT, PAD, PACEMAKER HGB 11.8 HCT 38.8 % [...] External Ris In - 04/07/2018 9:03 AM WASTE DUSTER Transthoracic Echocardiography Report (TTE) Demographics Patient Name JEAN, Date of Study 04/06/2018 MAMI Gender Male Visit Number [id number] Race Room Number 1155 Number Date of 1950 Referring Physician Christin Lam S Age 68 year(s) Bookkeeping Service Sales Agent Krista Villatoro RDCS, RVT Interpreting Marshall Webb MD Physician Procedure Type of Study TTE procedure:2DECHO W DOPPLER(CW/PW/COLOR) (Routine) Indications:Acute Chest Pain/ Suspected CAD. Clinical History COPD, CAD, CVA, HTN, HLD,UT, PAD, PACEMAKER HGB 11.8 HCT 38.8 % [...] l/min/m^2 Performing Organization Address City/State/Zipcode Phone Number [facility] CP[facility] Arterial doppler legs bilateral (04/06/2018 7:30 PM WASTE DUSTER) Ejection Fraction [facility] Impressions Performed At Right Impression [facility] 1. The common femoral, profunda [...] + + + + + + !Prox TOLL BOOTH OPERATOR ! !86.4! !Biphasic ! !80.3! !Biphasic ! + + + + + + + + + + !Mid TOLL BOOTH OPERATOR ! !106 !!Biphasic ! !98.5! !Biphasic ! + + + + + + + + + + !Dist TOLL BOOTH OPERATOR ! !69.9! !Biphasic ! !76.8! !Biphasic ! [...] PV LAB - Lower Extremity Arterial Duplex [facility] Demographics Patient Name Tyron PENA of Study04/06/2018 [id number] Age68 Visit Number [id number] Gender Male Accession Number [id number] Date of Birth1950 [facility] [place] [facility] Whnajl[address] Physician SonographAnalia Rios Interpreting Shivani Ramírez MD [...] Current Smoker, PAD, HTN, HLD, CAD, ! 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 + + + + Procedure Note Interface, External Ris In - 04/07/2018 4:04 PM WASTE DUSTER PV LAB - Lower Extremity Arterial Duplex Demographics Patient Name MAMI PENA Date of Study 04/06/2018 Age 68 Visit Number [id number] Gender Male Accession Number [id number] Date of 1950 Kayla Ferraro Room Number 1155 Physician Bookkeeping Service Sales Agent Sebastian Rios Interpreting Shivani Ramírez MD RVS [...] HTN, HLD, CAD, ! !Factors: ! !COPD, UT, Pacemaker, Fem-fem Bypass (2016) ! + + [...] DP pressure is 139 mmHg with an OCREY of 0.85, within mild obstruction range. 4. [...] + + + +-------- + + !Prox TOLL BOOTH OPERATOR ! !86.4 ! !Biphasic ! !80.3 ! !Biphasic ! + + + ------+ + + + +-------- + + !Mid TOLL BOOTH OPERATOR ! !106 ! !Biphasic ! !98.5 ! !Biphasic ! + + + ------+ + + + +-------- + + !Dist TOLL BOOTH OPERATOR ! !69.9 ! !Biphasic ! !76.8 ! [...] [facility] CPACS PT/aPTT (04/06/2018 3:47 PM WASTE DUSTER) Protime 13.8 11.7 - 14.[address] [facility] INR 1.1 <=5.9 [facility] PTT 31.6 22.5 - 36.0 seconds [facility] Specimen Blood - Arm, Right Narrative Performed At RECOMMENDED COUMADIN/WARFARIN INR THERAPY [facility] RANGES STANDARD DOSE: 2.0 - 3.0 Includes: PROPHYLAXIS for venous thrombosis, systemic embolization; TREATMENT for venous thrombosis and/or pulmonary embolus. HIGH RISK: Target INR is 2.5-3.5 for patients with mechanical heart valves. Performing Organization Address City/State/Zipcode Phone Number [facility] [address] [place] [address] [place] ARRYTHMIA IMPLANT REPORT - SCAN (02/03/2018 2:53 PM WASTE DUSTER)Only the most recent of3 resultswithin the time period is included. Narrative Performed At TSH/Free T4 If Indicated (12/02/2017 3:11 AM CDT) TSH 3.16 0.35 - 4.94 uIU/mL [facility] Specimen Blood Performing Organization Address City/[facility] Phone Number [place] [phone] [place] [address] [place] Carotid doppler bilateral (12/01/2017 10:12 PM CDT) Ejection Fraction [facility] Impressions Performed At Right Impression [facility] 1. There is [...] At PV LAB - Carotid Duplex Study [facility] Demographics Patient Name JEAN,Date of Study 12/01/2017 MAMI [id number] Age 67 Visit Number [id number] GenderMale Accession Number [id number] Date of 1950 [facility] Eze Room Number 7515 PhysicianMichael SonographSarah Hayes InterpretingJ. Jose Perez MD, Physician KETTY Procedure Type of Study: Cerebral: Carotid, CAROTID DOPPLER, BILATERAL. Indications for Study:Stroke. Patient Status:Routine. Study Location:Portable. Technical Quality:Adequate visualization. Risk Factors History of Disease + + + + !Diagnosis !Date!Comments ! + + + + !History/Risk!03/12/2017!Stroke, Current Smoker, PAD, HTN, HLD, CAD, ! 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 + + + + Procedure Note Interface, External Ris In - 12/02/2017 6:29 AM CDT PV LAB - Carotid Duplex Study Demographics Patient Name JEAN, Date of Study 12/01/2017 MAMI Age 67 Visit Number [id number] Gender Male Accession Number [id number] Date of 1950 Referring Louise Loo Room Number 7515 Physician Jose Bookkeeping Service Sales Agent Noel Hayes Interpreting Cristobal Perez MD, Physician RPTUNG Procedure Type of Study: Cerebral: Carotid, CAROTID DOPPLER, BILATERAL. Indications for Study:Stroke. Patient Status:Routine. Study Location:Portable. Technical Quality:Adequate visualization. Risk Factors History of Disease + + + + !Diagnosis !Date !Comments ! + + + + !History/Risk !03/12/2017!Stroke, Current Smoker, PAD, HTN, HLD, CAD, ! !Factors: ! !COPD, UT, Pacemaker, Fem-fem Bypass (2016) ! + + [...] City/State/Zipcode Phone Number [facility] ECHOCARDIOGRAM REPORT - SCAN (12/01/2017 6:50 PM CDT) Narrative Performed At CT brain without IV contrast portable (12/01/2017 6:30 PM CDT) Narrative Performed At FINAL REPORT [facility] CT head without contrast 12/01/2017 6:40 PM [...] MD Report Verified Date/Time:12/01/2017 18:41:06 Reading Location: [facility] Radiology Reading Room Procedure Note Interface, External [...] Report Verified Date/Time: 12/01/2017 18:41:06 Reading Location: [facility] Radiology Reading Room Performing Organization Address City/State/Zipcode Phone Number RIS Potassium (12/01/2017 3:53 PM CDT) Potassium 3.7 3.5 - 5.1 meq/L [facility] Specimen Blood Narrative Performed At Check Serum Potassium level 2 hours after [facility] [facility] oral potassium replacement completed or 30 min after intravenous potassium replacement. Performing Organization Address City/State/[facility] [place] [address] CENTER Pacemaker Check (12/01/2017 10:56 AM CDT) Narrative Performed At Sakshi Britt RN 12/01/2017 10:56 AM Performed pacemaker interrogation per order.Preliminary report placed under cardiac studies in chart. 1. Normal device function 2. No events SAKSHI BRITT RN 12/01/2017 10:56 AM [id number] Transthoracic 2D echo w/ doppler (cw/pw/color) (12/01/2017 9:37 AM CDT) Ejection Fraction [facility] Narrative Performed At Transthoracic Echocardiography Report (TTE) [facility] Dem[facility] Patient Name JEAN, Date of Study 12/01/2017 MAMI [id number] GenderMale Visit Number [id number] Room Number [id number] Number Date of Birth1950Referring Physician Jostin Sevilla MD Age67 year(s)Bookkeeping Service Sales Agent Roxane Ragsdale [facility] AnalystAlex Mod[place] InterpretingStPhysician TJ Tracy Procedure Type of Study TTE procedure:2DECHO W DOPPLER(CW/PW/COLOR) (Routine) Indications:Suspected cardiac source of emboli. Clinical History HGB 11.3 HCT 35.2 % DEFINITY 4ML ANGINA, COPD, CAD, CVA (03/2017), DEMENTIA, SHI, EMPHYSEMA, HTN, HLD, UT PPM (2008), SOB, SMOKER, TIA, PCI (01/20/2016), [...] Study 12/01/2017 MAMI Gender Male Visit Number [id number] Race Room Number 7515 Number Date of 1950 Referring Physician Jostin Sevilla MD Age 67 year(s) Bookkeeping Service Sales Agent Roxane Jn [facility] Locomotive Crane Operator Edward Salvador Interpreting Physician TJ Gonzalez Procedure Type of Study TTE procedure:2DECHO W DOPPLER(CW/PW/COLOR) (Routine) Indications:Suspected cardiac source of emboli. Clinical History HGB 11.3 HCT 35.2 % DEFINITY 4ML ANGINA, COPD, CAD, CVA (03/2017), DEMENTIA, SHI, EMPHYSEMA, HTN, HLD, UT PPM (2008), SOB, SMOKER, TIA, PCI (01/20/2016), [...] City/State/Zipcode Phone Number [facility] (12/01/2017 8:14 AM CDT) Phosphorus 2.6Comment: Specimen slightly 2.3 - 4.7 mg/dL [facility] hemolyzed [facility] Specimen Blood Performing Organization Address [facility] Phone Number [address] [address] CENTER Hemoglobin A1c (12/01/2017 3:33 AM CDT)Only the most recent of2 resultswithin the time period is included. Hemoglobin A1C 6.0 4.3 - 6.1 % [facility] Specimen Blood Performing Organization Address [facility] Phone Number [address] [address] [phone] [place] Fasting lipid panel (12/01/2017 3:33 AM CDT) Triglycerides 119 mg/dL [facility] Cholesterol 144 mg/dL [facility] HDL 26 mg/dL [facility] LDL Calculated 94 mg/dL [facility] Specimen Blood Narrative Performed At [facility] Triglyceride Reference Range: Low Risk <150 [id number] High Risk 200-499 Very High Risk>=500 Cholesterol Reference Range: Low Risk <200 [id number] High Risk>240 HDL Cholesterol Reference Range: Low Risk >=60 High Risk <40 LDL Cholesterol Reference Range: Optimal<100 Near [id number] [id number] Very High >=190 Fasting Performing Organization Address [facility] Phone Number [address] [address] CENTER Vitamin B12 and Folate (11/30/2017 5:41 PM CDT) Vitamin B12 1,185 (H) 213 - 816 pg/mL [facility] Folate 2.3 (L) >=7.0 ng/mL [facility] Specimen Blood Performing Organization Address City/[facility] Phone Number [facility] [address] [place] [address] [phone] CENTER after 06/05/2017 Insurance Payer Benefit Plan / Group Subscriber ID Type Phone Address [employer] - UNITED MEDICARE HMO xxxxxxxxx MEDICARE [facility] MEDICAID MEDICAID [facility] xxxxxxxxx Medicaid Guarantor Name Account Type Relation to Date of Phone Billing Patient Address Mami Pena Personal/Family Self 1950 [address] (Home) [place] [address] Mami Pena Personal/Family Self 1950 [address] (Home) [place] [address] Advance Directives For more information, please contact:RADHA Navarro [id number] [place], [place] [phone] Code Status Date Activated Date Inactivated Comments Full Code 04/06/2018 5:09 PM This code status was determined by: Patient Full Code 11/30/2017 4:52 PM 12/02/2017 4:13 PM This code status was determined by: Patient Full Code 01/13/2016 11:29 AM 01/14/2016 8:29 PM This code status was determined by: Patient
--- OUTSIDE RECORDS SUMMARY | 2018-06-06 15:28 | XMS REPORT | Continuity of Care Document ---
:1950 Author Organization Interface Problems Problem Status Onset Classification Date Comments Source Date Reported CHEST PAIN Active [address] CVA Active [address] PRABHA BILLING Active [address] HTN Active Finding 05/16/[address] [facility] CHEST PAIN, Active [facility] Medications Medication Details Route Status Patient [...] ABDOMEN AND PELVIS WITH CONTRAST 12/28 - [facility] lvis w IV is w - Medical contrast contrast CT This report was dictated by a Client Experience Specialist /Fellow. I have personally reviewed the [...] Brain/Neck Exam: CTA HEAD AND NECK 12/28 [facility] Stroke Stroke /2018 - Medical perfusion [...] 1view EXAM: XR CHEST 1 VIEW 12/28 [facility] 1view DX DX /2017 - Medical This report was dictated by a Client Experience Specialist/Fellow. I have personally reviewed the images [...] EXAM: CT BRAIN WITHOUT CONTRAST 12/28 - [facility] Stroke wo wo contrast /2017 - [facility] contrast CT Center CT DATE: 12/28/2017 Read [...] - [place] [facility] Urine Total Urine 05/16 [facility] Studies Protein Total /2017 [facility] Protein [place] [facility] Urine 1.015 05/16 [facility]. Studies Specific /2017 [facility] [place] [facility] Urine Urine 05/16 [facility] Studies Nitrite Nitrite /2017 [facility] [place] [facility] Urine Urine 05/16 [facility] Studies Leukocyte Leukocyte /2017 [facility] Esterase Esterase [place] [facility] Urine Urine 05/16 [facility]. Studies Ketones Ketones /2017 [facility] [place] [facility] Urine Urine 05/16 [facility] Studies Glucose Glucose /2017 [facility] [place] [facility] Urine Color Urine 05/16 [facility]. Studies Color /2017 [facility] [place] [facility] Urine Blood Urine 05/16 [facility]. Studies Blood /2017 [facility] [place] [facility] Urine Urine 05/16 [facility] Studies Bilirubin Bilirubin /2017 [facility] [place] [facility] Urine Urine 05/16 [facility] Studies Appearance Appearance /2017 [facility] [place] [facility] Creatine 1.1 ng/ml 0.3 - 4.0 05/16 [facility] Studies Kinase MB /2017 [facility] [place] [facility] Creatine 61 IU/L 22 - 269 05/16 [facility] Studies Kinase /2017 [facility] [place] [facility] Troponin I null 05/16 [facility] Studies /2017 [facility] [place] [facility] Triglyceride 100 mg/dL 35 - 160 05/16 [facility] Studies s Level /2017 [facility] [place] [facility] LDL 44 05/16 [facility] Studies Cholesterol, /2017 [facility] Calculated [place] [facility] HDL 22 mg/dL 27 - 67 05/16 [facility] Studies Cholesterol /2018 [facility] [place] [facility] Cholesterol/ 3.91 05/16 [facility] Studies HDL Ratio /2017 [facility] [place] [facility] Cholesterol 86 mg/dL 05/16 [facility] Studies Level /2018 [facility] [place] [facility] White Blood 6.5 K/uL 4.3 - 10.9 05/15 [facility] Studies Count /2017 [facility] [place] [facility] Red Cell 17.3 % 12.1 - 05/15 [facility] Studies Distribution 15.2 /2017 [facility] Width [place] [facility] Red Blood 4.44 M/uL 4.33 - 05/15 [facility] Studies Count 5.43 /2017 [facility] [place] [facility] Platelet 161 K/uL 152 - 406 05/[address] [facility] St[facility] Studies Count /2017 [facility] [place] [facility] Neutrophils 58.0 % 41.7 - 05/[address] [facility] St. Studies % 73.7 /2017 [facility] [place] [facility] Monocytes % 7.4 % 3.3 - 12.3 05/[address] [facility] St. Studies /2017 [facility] [place] [facility] Mean 9.4 fL 7.6 - 11.3 05/[address] [facility] St. Studies Platelet /2017 [facility] Volume [place] [facility] Mean 88.3 fL 80 - 100 05/[address] [facility] St[facility] Studies Corpuscular /2017 [facility] Volume [place] [facility] Mean 32.6 g/dL 32.0 - 05/[address] [facility] St. Studies Corpuscular 36.0 /2017 [facility] Hemoglobin [place] [facility] Mean 28.8 pg 27.0 - 05/15 [facility]. Studies Corpuscular 35.0 /2017 [facility] Hemoglobin [place] [facility] Lymphocytes 31.4 % 15.3 - 05/[address] [facility] St. Studies % 44.8 /2017 [facility] [place] [facility] Hemoglobin 12.8 g/dL 13.6 - 05/[address] [facility] St. Studies 17.9 /2017 [facility] [place] [facility] Hematocrit 39.2 % 39.6 - 05/[address] [facility] St. Studies 49.0 /2017 [facility] [place] [facility] Eosinophils 1.8 % 0 - 4.4 05/[address] [facility] St. Studies % /2017 [facility] [place] [facility] Basophils % 1.4 % 0 - 1.3 05/[address] [facility] St. Studies /2017 [facility] [place] [facility] Absolute 3.8 K/uL 1.8 - 8.0 05/[address] [facility] St. Studies Neutrophil /2017 [facility] [place] [facility] Absolute 0.5 K/uL 0.1 - 1.3 05/[address] [facility] St. Studies Monocytes /2017 [facility] - (CBC) [place] [facility] Absolute 2.0 K/uL 0.7 - 4.9 05/[address] [facility] St. Studies Lymphocytes /2017 [facility] - (CBC) [place] [facility] Absolute 0.1 K/uL 0 - 0.5 05/[address] [facility] St. Studies Eosinophils /2017 [facility] (CBC) [place] [facility] Absolute 0.1 K/uL 0 - 0.5 05/[address] [facility] St[facility] Studies Basophils /2017 [facility] - (CBC) [place] [facility] Total 0.4 mg/dL 0.3 - 1.2 05/[address] [facility] St. Studies Bilirubin /2017 [facility] Glucose 135 mg/dL 65 - 120 05/15 [facility]. Studies Level /2017 [facility] [place] [facility] Estimat null 90 05/15 [facility]. Studies Glomerular /2017 [facility] - Filtration [place] Rate Laboratory Creatinine 0.82 mg/dL 0.61 - [address] [facility] St. Studies 1.24 /2017 [facility] Calcium 8.9 mg/dL 8.5 - 10.5 05/15 [facility]. Studies Level /2017 [facility] [place] Laboratory Blood Urea 12 mg/dL 6 - 20 05/15 [facility]. Studies Nitrogen /2017 [facility] Alkaline 116 IU/L 42 - 121 05/15 [facility]. Studies Phosphatase /2017 [facility] Sodium Level 134 mEq/L 135 - 145 05/15 [facility]. Studies /2017 [facility] Serum Total 6.6 g/dL 6.0 - 8.3 05/15 [facility]. [facility] Potassium 3.7 mEq/L 3.6 - 5.0 05/15 [facility]. Studies Level /2017 [facility] Globulin 3.0 g/dL 2.3 - 3.5 05/15 [facility]. Studies /2018 [facility] [place] [facility] Chloride 101 mEq/L 101 - 111 05/15 [facility]. Studies Level /2017 [facility] [place] [facility] Carbon 27 mEq/L 21 - 31 05/15 [facility]. Studies Dioxide /2017 [facility] [place] [facility] Aspartate 18 IU/L 10 - 42 05/15 [facility]. Studies Amino Transf /2017 [facility] - (AST/SGOT) [place] [facility] Albumin/Glob 1.2 1.1 - 1.8 05/15 [facility]. Studies ulin Ratio /2017 [facility] [place] Laboratory Albumin 3.6 g/dL 3.2 - 5.5 05/[address] [facility] St. Studies /2018 [facility] Alanine 13 IU/L 10 - 60 05/15 [facility]. Studies Aminotransfe /2017 [facility] rase [place] (ALT/SGPT) Laboratory B-Type 60 pg/ml 05/[address] [facility] St. Studies Natriuretic [facility] Peptide [place] Laboratory Prothrombin 12.6 9.5 - 12.5 05/[address] [facility] St. Studies Time SECONDS [facility] [place] Laboratory INR 1.07 05/[address] [facility] St. Studies Internationa [facility] - l Normalized [place] Ratio Laboratory Activated 28.7 24.3 - 05/[address] [facility] St. Studies Partial SECONDS 36.9 [facility] Thromboplast [place] Time Laboratory Direct 0.1 mg/dL 0 - 0.2 05/[address] [facility] St. Studies Bilirubin [facility] [place] [facility] Magnesium 1.8 mg/dL 1.8 - 2.5 05/[address] [facility] St. Studies Level [facility] [place] [facility] Rapid null 05/15 [facility]. Studies Troponin I [facility] [place] [facility] Lipase 33 U/L 22 - 51 05/[address] [facility] St[facility] Studies [facility] [place] [facility] Urine WBC null 03/[address] [facility] St[facility] Studies [facility] [place] [facility] Urine null 03[facility] [facility] St. Studies Squamous [facility] Epithelial [place] Cells Laboratory Urine RBC Urine RBC 03/[address] [facility] St[facility] Studies [facility] [place] [facility] Urine Urine 03/[address] [facility] St. Studies Culture Culture [facility] - Reflexed Reflexed [place] Laboratory Urine null 03/[address] [facility] St. Studies Bacteria [facility] [place] [facility] Bedside 97 mg/dl 65 - 120 03/[address] [facility] St[facility] Studies Glucose [facility] [place] Vital Signs Vital Sign Value Date Comments Source Heart Rate 61 05/16/2017 [facility]. [facility] [place] Systolic (mm Hg) 105 05/16/2017 [facility]. [facility] [place] Diastolic (mm Hg) 69 05/16/2017 [facility] [place] Temperature Oral (F) 97.8 F 05/16/2017 [facility] [place] Respitory Rate 18 05/16/2017 [facility] [place] Height 68 [facility] [place] Weight 155 05/15/2017 [facility] [place] En[facility]ters Location Location Encounter Encounter Reason Attending ADM DC Status Source Details Type Number For Provider Date Date Visit [facility] Departed [id number] 03/11 03/[address] [facility] [place] [facility] [id number] 05/15 05/[address] [facility] [place] Procedures Procedure Code Date Perfomer Comments Source Head Brain Wo [id number] [facility] Cont 8 - [place] Chest For Pe [id number] [facility] Angio 8 [facility] [place] Chest Single View [id number] [facility] 8 - [place] Louin Count [facility] St[facility] kes 8 - [place] [facility] 8 - [place] Chest Single View [id number] [facility] 8 - [place] [facility] Stroke Brain [id number] [facility] Wo Cont 8 - [place] INTRODUCE OTH [id number] [facility] THROMBOLYTIC IN 8 - [place] PERIPH VEIN, PERC THER/PROPH/DIAG [id number] [facility]. [facility] INJ IV PUSH 8 - [place]
--- OUTSIDE RECORDS SUMMARY | 2018-06-06 15:30 | XMS REPORT ---
:1950 Demographics Address [address] [place] [address] Preferred Language Unknown Marital Status Unknown Yarsanism Affiliation Unknown Race Unknown Additional Race(s) Unavailable Ethnic Group Unknown [facility] Address [address] [place] [address] Care Team Providers Name Role Phone VANDANA [...] Value Reference Range Comments MAGNESIUM (BEAKER) (test ebdj=445) 1.9 mg/dL 1.6-2.6 BASIC METABOLIC [id number] 05:42:00 Test Item Value Reference Range Comments SODIUM (BEAKER) (test 136 meq/L 136-145 ffyp=971) POTASSIUM (BEAKER) (test 3.8 meq/L 3.5-5.1 mpqw=732) CHLORIDE (BEAKER) (test 107 meq/L 98-107 dfnr=126) CO2 (BEAKER) (test 24 meq/L 22-29 lnij=267) BLOOD UREA NITROGEN 14 mg/dL 7-21 (BEAKER) (test lssk=203) CREATININE (BEAKER) (test 0.84 mg/dL 0.57-1.25 rpsn=117) GLUCOSE RANDOM (BEAKER) 113 mg/dL 70-105 (test hsfm=920) CALCIUM (BEAKER) (test 8.1 mg/dL 8.4-10.2 wvte=186) EGFR (BEAKER) (test 91 mL/min/1.73 sq m ESTIMATED GFR IS NOT xcch=0968) ACCURATE CREATININE CLEARANCE IN PREDICTING GLOMERULAR FILTRATION RATE. ESTIMATED GFR IS NOT APPLICABLE FOR DIALYSIS PATIENTS. CBC W/PLT COUNT & AUTO [id number] 04:43:00 Test Item Value Reference Range Comments WHITE BLOOD CELL COUNT (BEAKER) (test sjzw=560) 4.7 K/ L 3.5-10.5 RED BLOOD CELL COUNT (BEAKER) (test bqao=952) 3.54 M/ L 4.63-6.08 HEMOGLOBIN (BEAKER) (test fegz=417) 8.8 GM/DL 13.7-17.5 HEMATOCRIT (BEAKER) (test ivvk=024) 28.9 % 40.1-51.0 MEAN CORPUSCULAR VOLUME (BEAKER) (test mtys=858) 81.6 fL 79.0-92.2 MEAN CORPUSCULAR HEMOGLOBIN (BEAKER) (test 24.9 pg 25.7-32.2 gsqw=318) MEAN CORPUSCULAR HEMOGLOBIN CONC (BEAKER) (test 30.4 GM/DL 32.3-36.5 fync=954) RED CELL DISTRIBUTION WIDTH (BEAKER) (test 18.3 % 11.6-14.4 njzz=288) PLATELET COUNT (BEAKER) (test mgex=904) 156 K/CU MM 150-450 MEAN PLATELET VOLUME (BEAKER) (test notw=551) 11.0 fL 9.4-12.4 NUCLEATED RED BLOOD CELLS (BEAKER) (test 0 /100 WBC 0-0 mmqk=687) NEUTROPHILS RELATIVE PERCENT (BEAKER) (test 55 % vbcy=763) LYMPHOCYTES RELATIVE PERCENT (BEAKER) (test 29 % cutj=367) MONOCYTES RELATIVE PERCENT (BEAKER) (test 11 % dped=984) EOSINOPHILS RELATIVE PERCENT (BEAKER) (test 3 % pmdd=641) BASOPHILS RELATIVE PERCENT (BEAKER) (test 2 % pmjk=763) NEUTROPHILS ABSOLUTE COUNT (BEAKER) (test 2.59 K/ L 1.78-5.38 zbmn=663) LYMPHOCYTES ABSOLUTE COUNT (BEAKER) (test 1.34 K/ L 1.32-3.57 drxz=942) MONOCYTES ABSOLUTE COUNT (BEAKER) (test 0.51 K/ L 0.30-0.82 xpgs=713) EOSINOPHILS ABSOLUTE COUNT (BEAKER) (test 0.15 K/ L 0.04-0.54 rxyb=335) BASOPHILS ABSOLUTE COUNT (BEAKER) (test 0.07 K/ L 0.01-0.08 lauh=601) IMMATURE GRANULOCYTES-RELATIVE PERCENT (BEAKER) 1 % 0-1 (test sbvg=3008) [id number] 19:48:00 Test Item Value Reference Range Comments ACTIVATED CLOTTING TIME 158 sec TESTED AT [facility] [address] ([place]) (test pcql=869) [facility] [address] [id number] 09:20:00 Test Item Value Reference Range Comments PARTIAL THROMBOPLASTIN TIME (BEAKER) (test 76.2 seconds 22.5-36.0 uxuc=686) CREATINE KINASE (CK)2018-04-08 07:02:00 Test Item Value Reference Range Comments CREATINE KINASE TOTAL (BEAKER) (test nise=136) 74 U/L 29-200 LACTIC ACID, VENOUS, WHOLE [id number] 06:56:00 Test Item Value Reference Range Comments LACTATE BLOOD VENOUS (2) (BEAKER) (test 1.1 mmol/L 0.5-2.2 kjil=1260) NERVE CONDUCTION STUDIES; 3-4 [id number] 06:53:00Select Extremity-> Right Leg Reason for exam:->painB[facility] HospitalNeurophysiology DepartmentELECTROMYOGRAPHY / NERVE CONDUCTION STUDY [address] [place] [address] Name: Mami Pena : Date of : [...] ConductionVelocitySural.RLower leg 2.9 ms 3.7 ms 12 늜V Ankle-Lower leg 2.9 ms 140 mm 48 [...] right lower limb. ____Melody Benavidez M.D. 06:53 [id number] 03:03:00 Test Item Value Reference Range Comments PARTIAL THROMBOPLASTIN TIME (BEAKER) (test 82.1 seconds 22.5-36.0 mvwv=141) CT, CTA AAA, W/ SAMMY.EXT.[id number] 16:54:00Addendum BeginsREPORT STATUS:A Addendum: I agree with the previously described non vascular findings. Signed: Angel Payne MDReport Verified Date/Time: 2018 16:54:33 Reading Location: [place] [address] Angio Body Reading RoomAddendum EndsFINAL REPORT CT [...] dictated regarding the non-vascular findings by the Manager Casino Radiologist. Signed: Steve Musa MDReport Verified Date/Time: 04/07/2018 15:32:19 Reading Location: [place] [address] Cardiology MRI TROPONIN [id number] 11:39:00 Test Item Value Reference Range Comments TROPONIN I (BEAKER) (test ipco=108) < ng/mL 0.00-0.03 Troponin I (TnI) levels [...] acute neurological disease, and persistent tachyarrhythmia.BASIC METABOLIC [id number] 16:14:00 Test Item Value Reference Range Comments SODIUM (BEAKER) (test 133 meq/L 136-145 mlkm=481) POTASSIUM (BEAKER) (test 3.9 meq/L 3.5-5.1 cgcf=896) CHLORIDE (BEAKER) (test 99 meq/L 98-107 wzgv=737) CO2 (BEAKER) (test 23 meq/L 22-29 yryv=770) BLOOD UREA NITROGEN 14 mg/dL 7-21 (BEAKER) (test kyxz=311) CREATININE (BEAKER) (test 1.02 mg/dL 0.57-1.25 eblh=504) GLUCOSE RANDOM (BEAKER) 102 mg/dL 70-105 (test teuu=108) CALCIUM (BEAKER) (test 9.7 mg/dL 8.4-10.2 rwhn=854) EGFR (BEAKER) (test 72 mL/min/1.73 sq m ESTIMATED GFR IS NOT ojgn=7836) ACCURATE CREATININE CLEARANCE IN PREDICTING GLOMERULAR FILTRATION RATE. ESTIMATED GFR IS NOT APPLICABLE FOR DIALYSIS PATIENTS. [id number] 16:05:00 Test Item Value Reference Range Comments PROTIME (BEAKER) (test hvrp=339) 13.8 seconds 11.7-14.7 INR (BEAKER) (test tjzo=157) 1.1 <=5.9 PARTIAL THROMBOPLASTIN TIME (BEAKER) (test 31.6 seconds 22.5-36.0 oagp=415) RECOMMENDED COUMADIN/WARFARIN INR THERAPY RANGESSTANDARD DOSE: 2.0 - 3.0 Includes: PROPHYLAXIS forvenous thrombosis, systemic embolization; TREATMENT for venous thrombosis and/or pulmonary embolus.HIGH RISK: Target INR is 2.5-3.5 for patients with mechanical heart valves.CBC W/PLT COUNT & AUTO [id number] 15:56:00 Test Item Value Reference Range Comments WHITE BLOOD CELL COUNT (BEAKER) (test dryv=392) 9.2 K/ L 3.5-10.5 RED BLOOD CELL COUNT (BEAKER) (test psag=815) 4.75 M/ L 4.63-6.08 HEMOGLOBIN (BEAKER) (test jsrp=236) 11.8 GM/DL 13.7-17.5 HEMATOCRIT (BEAKER) (test itux=866) 38.8 % 40.1-51.0 MEAN CORPUSCULAR VOLUME (BEAKER) (test hyft=043) 81.7 fL 79.0-92.2 MEAN CORPUSCULAR HEMOGLOBIN (BEAKER) (test 24.8 pg 25.7-32.2 ozmj=460) MEAN CORPUSCULAR HEMOGLOBIN CONC (BEAKER) (test 30.4 GM/DL 32.3-36.5 lpda=764) RED CELL DISTRIBUTION WIDTH (BEAKER) (test 18.6 % 11.6-14.4 yykk=652) PLATELET COUNT (BEAKER) (test fdyi=597) 254 K/CU MM 150-450 MEAN PLATELET VOLUME (BEAKER) (test xowd=024) 11.4 fL 9.4-12.4 NUCLEATED RED BLOOD CELLS (BEAKER) (test 0 /100 WBC 0-0 bacy=834) NEUTROPHILS RELATIVE PERCENT (BEAKER) (test 62 % bdos=394) LYMPHOCYTES RELATIVE PERCENT (BEAKER) (test 27 % jzuv=688) MONOCYTES RELATIVE PERCENT (BEAKER) (test 9 % ezbn=105) EOSINOPHILS RELATIVE PERCENT (BEAKER) (test 1 % wheh=004) BASOPHILS RELATIVE PERCENT (BEAKER) (test 1 % jllr=375) NEUTROPHILS ABSOLUTE COUNT (BEAKER) (test 5.71 K/ L 1.78-5.38 zswl=467) LYMPHOCYTES ABSOLUTE COUNT (BEAKER) (test 2.47 K/ L 1.32-3.57 uoax=410) MONOCYTES ABSOLUTE COUNT (BEAKER) (test 0.83 K/ L 0.30-0.82 ydvs=934) EOSINOPHILS ABSOLUTE COUNT (BEAKER) (test 0.07 K/ L 0.04-0.54 hhwd=121) BASOPHILS ABSOLUTE COUNT (BEAKER) (test 0.11 K/ L 0.01-0.08 idvf=803) IMMATURE GRANULOCYTES-RELATIVE PERCENT (BEAKER) 1 % 0-1 (test uoor=2755) TSH/FREE T4 IF [id number] 04:03:00 Test Item Value Reference Range Comments THYROID STIMULATING HORMONE (BEAKER) (test 3.16 uIU/mL 0.35-4.94 afwi=719) BASIC METABOLIC [id number] 03:35:00 Test Item Value Reference Range Comments SODIUM (BEAKER) (test 135 meq/L 136-145 seid=619) POTASSIUM (BEAKER) (test 3.9 meq/L 3.5-5.1 soiw=464) CHLORIDE (BEAKER) (test 106 meq/L 98-107 himz=876) CO2 (BEAKER) (test 22 meq/L 22-29 cwok=950) BLOOD UREA NITROGEN 13 mg/dL 7-21 (BEAKER) (test gfzp=806) CREATININE (BEAKER) (test 0.81 mg/dL 0.57-1.25 isgf=753) GLUCOSE RANDOM (BEAKER) 91 mg/dL 70-105 (test jrsg=246) CALCIUM (BEAKER) (test 8.5 mg/dL 8.4-10.2 rlco=060) EGFR (BEAKER) (test 95 mL/min/1.73 sq m ESTIMATED GFR IS NOT ujfa=7737) ACCURATE CREATININE CLEARANCE IN PREDICTING GLOMERULAR FILTRATION RATE. ESTIMATED GFR IS NOT APPLICABLE FOR DIALYSIS PATIENTS. CBC W/PLT COUNT & AUTO [id number] 03:24:00 Test Item Value Reference Range Comments WHITE BLOOD CELL COUNT (BEAKER) (test ikyz=238) 5.2 K/ L 3.5-10.5 RED BLOOD CELL COUNT (BEAKER) (test aebc=386) 4.07 M/ L 4.63-6.08 HEMOGLOBIN (BEAKER) (test wyyv=098) 11.2 GM/DL 13.7-17.5 HEMATOCRIT (BEAKER) (test onca=531) 35.9 % 40.1-51.0 MEAN CORPUSCULAR VOLUME (BEAKER) (test aytn=900) 88.2 fL 79.0-92.2 MEAN CORPUSCULAR HEMOGLOBIN (BEAKER) (test 27.5 pg 25.7-32.2 jtxi=700) MEAN CORPUSCULAR HEMOGLOBIN CONC (BEAKER) (test 31.2 GM/DL 32.3-36.5 tdbn=761) RED CELL DISTRIBUTION WIDTH (BEAKER) (test 16.9 % 11.6-14.4 xxdx=404) PLATELET COUNT (BEAKER) (test hyrw=322) 161 K/CU MM 150-450 MEAN PLATELET VOLUME (BEAKER) (test gmvk=218) 10.7 fL 9.4-12.4 NUCLEATED RED BLOOD CELLS (BEAKER) (test 0 /100 WBC 0-0 lbeh=103) NEUTROPHILS RELATIVE PERCENT (BEAKER) (test 51 % scnj=594) LYMPHOCYTES RELATIVE PERCENT (BEAKER) (test 32 % sytc=426) MONOCYTES RELATIVE PERCENT (BEAKER) (test 11 % udmi=036) EOSINOPHILS RELATIVE PERCENT (BEAKER) (test 3 % huet=886) BASOPHILS RELATIVE PERCENT (BEAKER) (test 2 % dxqh=934) NEUTROPHILS ABSOLUTE COUNT (BEAKER) (test 2.67 K/ L 1.78-5.38 qqqj=381) LYMPHOCYTES ABSOLUTE COUNT (BEAKER) (test 1.68 K/ L 1.32-3.57 lgxu=455) MONOCYTES ABSOLUTE COUNT (BEAKER) (test 0.58 K/ L 0.30-0.82 qywr=511) EOSINOPHILS ABSOLUTE COUNT (BEAKER) (test 0.18 K/ L 0.04-0.54 xidw=442) BASOPHILS ABSOLUTE COUNT (BEAKER) (test 0.08 K/ L 0.01-0.08 oszh=404) IMMATURE GRANULOCYTES-RELATIVE PERCENT (BEAKER) 1 % 0-1 (test gbzk=5362) TROPONIN [id number] 20:57:00 Test Item Value Reference Range Comments TROPONIN I (BEAKER) (test wiuo=127) < ng/mL 0.00-0.03 Troponin I (TnI) levels [...] persistent tachyarrhythmia.CT BRAIN WITHOUT IV CONTRAST - [id number] 18:41:00Reason for exam:->Post tPAFINAL REPORT CT head [...] Paez Verified Date/Time: 12/01/2017 18:41:06 Reading Location: [facility] Radiology Reading Room TROPONIN [id number] 17:00:00 Test Item Value Reference Range Comments TROPONIN I (BEAKER) (test yhuj=556) < ng/mL 0.00-0.03 Troponin I (TnI) levels [...] failure, acidosis, acute neurological disease, and persistent tachyarrhythmia.[id number] 16:23:00 Test Item Value Reference Range Comments POTASSIUM (BEAKER) (test wdax=502) 3.7 meq/L 3.5-5.1 Check Serum Potassium level 2 hours after oral potassium replacement completed or 30 min after intravenous potassium replacement.[id number] 11:59:00 Test Item Value Reference Range Comments MAGNESIUM (BEAKER) (test 2.2 mg/dL 1.6-2.6 Specimen slightly hemolyzed hwol=471) [id number] 11:59:00 Test Item Value Reference Range Comments PHOSPHORUS (BEAKER) (test 2.6 mg/dL 2.3-4.7 Specimen slightly hemolyzed lkhz=919) HEMOGLOBIN [id number] 11:49:00 Test Item Value Reference Range Comments HEMOGLOBIN A1C (BEAKER) (test cykj=108) 6.0 % 4.3-6.1 TROPONIN [id number] 08:40:00 Test Item Value Reference Range Comments TROPONIN I (BEAKER) (test snma=694) < ng/mL 0.00-0.03 Troponin I (TnI) levels [...] acidosis, acute neurological disease, and persistent tachyarrhythmia.LIPID [id number] 04:39:00 Test Item Value Reference Range Comments TRIGLYCERIDES (BEAKER) (test hwdn=773) 119 mg/dL CHOLESTEROL (BEAKER) (test dbsn=948) 144 mg/dL HDL CHOLESTEROL (BEAKER) (test qrgb=165) 26 mg/dL LDL CHOLESTEROL CALCULATED (BEAKER) (test 94 mg/dL ahdw=874) Triglyceride Reference Range: Low Risk <150 Borderline 150- 199 High Risk 200-499 Very High Risk >=500Cholesterol Reference Range: Low Risk <200 Borderline 200-239 High Risk > 240HDL Cholesterol Reference Range: Low Risk >=60 High Risk <40LDL Cholesterol Reference Range: Optimal <100 Near Optimal 100-129 Borderline 130-159 High 160-189 Very High >=190 FastingBASIC METABOLIC [id number] 04:39:00 Test Item Value Reference Range Comments SODIUM (BEAKER) (test 136 meq/L 136-145 jexa=916) POTASSIUM (BEAKER) (test 3.7 meq/L 3.5-5.1 jven=333) CHLORIDE (BEAKER) (test 105 meq/L 98-107 fjuw=713) CO2 (BEAKER) (test 23 meq/L 22-29 wlqf=749) BLOOD UREA NITROGEN 14 mg/dL 7-21 (BEAKER) (test uviy=703) CREATININE (BEAKER) (test 0.86 mg/dL 0.57-1.25 husg=030) GLUCOSE RANDOM (BEAKER) 94 mg/dL 70-105 (test oojl=247) CALCIUM (BEAKER) (test 8.8 mg/dL 8.4-10.2 vxoq=499) EGFR (BEAKER) (test 88 mL/min/1.73 sq m ESTIMATED GFR IS NOT agpr=3388) ACCURATE CREATININE CLEARANCE IN PREDICTING GLOMERULAR FILTRATION RATE. ESTIMATED GFR IS NOT APPLICABLE FOR DIALYSIS PATIENTS. FastingCBC W/PLT COUNT & AUTO [id number] 04:25:00 Test Item Value Reference Range Comments WHITE BLOOD CELL COUNT (BEAKER) (test qzwl=862) 5.0 K/ L 3.5-10.5 RED BLOOD CELL COUNT (BEAKER) (test mbss=696) 4.03 M/ L 4.63-6.08 HEMOGLOBIN (BEAKER) (test sbgw=153) 11.3 GM/DL 13.7-17.5 HEMATOCRIT (BEAKER) (test rpch=902) 35.2 % 40.1-51.0 MEAN CORPUSCULAR VOLUME (BEAKER) (test bcte=574) 87.3 fL 79.0-92.2 MEAN CORPUSCULAR HEMOGLOBIN (BEAKER) (test 28.0 pg 25.7-32.2 qpee=843) MEAN CORPUSCULAR HEMOGLOBIN CONC (BEAKER) (test 32.1 GM/DL 32.3-36.5 ifow=191) RED CELL DISTRIBUTION WIDTH (BEAKER) (test 16.9 % 11.6-14.4 ldpw=841) PLATELET COUNT (BEAKER) (test rkkz=740) 179 K/CU MM 150-450 MEAN PLATELET VOLUME (BEAKER) (test lzuj=168) 11.6 fL 9.4-12.4 NUCLEATED RED BLOOD CELLS (BEAKER) (test 0 /100 WBC 0-0 wzny=561) NEUTROPHILS RELATIVE PERCENT (BEAKER) (test 48 % moqb=538) LYMPHOCYTES RELATIVE PERCENT (BEAKER) (test 36 % tksb=176) MONOCYTES RELATIVE PERCENT (BEAKER) (test 10 % lqat=020) EOSINOPHILS RELATIVE PERCENT (BEAKER) (test 3 % brkb=953) BASOPHILS RELATIVE PERCENT (BEAKER) (test 2 % oxee=658) NEUTROPHILS ABSOLUTE COUNT (BEAKER) (test 2.41 K/ L 1.78-5.38 ejks=314) LYMPHOCYTES ABSOLUTE COUNT (BEAKER) (test 1.80 K/ L 1.32-3.57 gajl=443) MONOCYTES ABSOLUTE COUNT (BEAKER) (test 0.52 K/ L 0.30-0.82 ytjf=520) EOSINOPHILS ABSOLUTE COUNT (BEAKER) (test 0.17 K/ L 0.04-0.54 desp=972) BASOPHILS ABSOLUTE COUNT (BEAKER) (test 0.08 K/ L 0.01-0.08 rzgl=415) IMMATURE GRANULOCYTES-RELATIVE PERCENT (BEAKER) 1 % 0-1 (test udlf=1487) HEMOGLOBIN [id number] 22:29:00 Test Item Value Reference Range Comments HEMOGLOBIN A1C (BEAKER) (test ploi=562) 5.9 % 4.3-6.1 VITAMIN B12 AND [id number] 18:47:00 Test Item Value Reference Range Comments VITAMIN B12 (BEAKER) (test udic=420) 1185 pg/mL 213-816 FOLATE (BEAKER) (test hwfh=401) 2.3 ng/mL >=7.0 TROPONIN [id number] 18:18:00 Test Item Value Reference Range Comments TROPONIN I (BEAKER) (test kuib=768) < ng/mL 0.00-0.03 Troponin I (TnI) levels [...] acute neurological disease, and persistent tachyarrhythmia.BASIC METABOLIC [id number] 18:10:00 Test Item Value Reference Range Comments SODIUM (BEAKER) (test 136 meq/L 136-145 atcw=789) POTASSIUM (BEAKER) (test 3.8 meq/L 3.5-5.1 rsnn=450) CHLORIDE (BEAKER) (test 102 meq/L 98-107 cngq=619) CO2 (BEAKER) (test 23 meq/L 22-29 mynv=978) BLOOD UREA NITROGEN 10 mg/dL 7-21 (BEAKER) (test ksnn=422) CREATININE (BEAKER) (test 0.88 mg/dL 0.57-1.25 ujnm=760) GLUCOSE RANDOM (BEAKER) 102 mg/dL 70-105 (test tmmi=004) CALCIUM (BEAKER) (test 9.3 mg/dL 8.4-10.2 uqwj=903) EGFR (BEAKER) (test 86 mL/min/1.73 sq m ESTIMATED GFR IS NOT omwc=3072) ACCURATE CREATININE CLEARANCE IN PREDICTING GLOMERULAR FILTRATION RATE. ESTIMATED GFR IS NOT APPLICABLE FOR DIALYSIS PATIENTS. CBC W/PLT COUNT & AUTO [id number] 17:52:00 Test Item Value Reference Range Comments WHITE BLOOD CELL COUNT (BEAKER) (test wkkb=745) 8.8 K/ L 3.5-10.5 RED BLOOD CELL COUNT (BEAKER) (test tqoq=905) 4.53 M/ L 4.63-6.08 HEMOGLOBIN (BEAKER) (test bncv=451) 12.6 GM/DL 13.7-17.5 HEMATOCRIT (BEAKER) (test adid=344) 39.4 % 40.1-51.0 MEAN CORPUSCULAR VOLUME (BEAKER) (test ceek=378) 87.0 fL 79.0-92.2 MEAN CORPUSCULAR HEMOGLOBIN (BEAKER) (test 27.8 pg 25.7-32.2 fpzi=818) MEAN CORPUSCULAR HEMOGLOBIN CONC (BEAKER) (test 32.0 GM/DL 32.3-36.5 zkyc=287) RED CELL DISTRIBUTION WIDTH (BEAKER) (test 17.0 % 11.6-14.4 ykud=337) PLATELET COUNT (BEAKER) (test cidr=460) 186 K/CU MM 150-450 MEAN PLATELET VOLUME (BEAKER) (test iigf=703) 10.5 fL 9.4-12.4 NUCLEATED RED BLOOD CELLS (BEAKER) (test 0 /100 WBC 0-0 urku=950) NEUTROPHILS RELATIVE PERCENT (BEAKER) (test 69 % beqa=984) LYMPHOCYTES RELATIVE PERCENT (BEAKER) (test 20 % fsal=202) MONOCYTES RELATIVE PERCENT (BEAKER) (test 9 % yiky=332) EOSINOPHILS RELATIVE PERCENT (BEAKER) (test 1 % eygr=962) BASOPHILS RELATIVE PERCENT (BEAKER) (test 1 % jzms=181) NEUTROPHILS ABSOLUTE COUNT (BEAKER) (test 6.12 K/ L 1.78-5.38 bgxx=106) LYMPHOCYTES ABSOLUTE COUNT (BEAKER) (test 1.72 K/ L 1.32-3.57 ysmu=299) MONOCYTES ABSOLUTE COUNT (BEAKER) (test 0.75 K/ L 0.30-0.82 rlvw=872) EOSINOPHILS ABSOLUTE COUNT (BEAKER) (test 0.08 K/ L 0.04-0.54 igqt=468) BASOPHILS ABSOLUTE COUNT (BEAKER) (test 0.09 K/ L 0.01-0.08 gjmb=366) IMMATURE GRANULOCYTES-RELATIVE PERCENT (BEAKER) 1 % 0-1 (test kpnf=5533) BASIC METABOLIC [id number] 07:51:00 Test Item Value Reference Range Comments SODIUM (BEAKER) (test 136 meq/L 136-145 wxge=279) POTASSIUM (BEAKER) (test 4.0 meq/L 3.5-5.1 nqro=538) CHLORIDE (BEAKER) (test 106 meq/L 98-107 mdfw=548) CO2 (BEAKER) (test 23 meq/L 22-29 ueoy=296) BLOOD UREA NITROGEN 15 mg/dL 7-21 (BEAKER) (test fayf=340) CREATININE (BEAKER) (test 0.92 mg/dL 0.57-1.25 ytxl=014) GLUCOSE RANDOM (BEAKER) 92 mg/dL 70-105 (test adbj=298) CALCIUM (BEAKER) (test 8.7 mg/dL 8.4-10.2 gnow=019) EGFR (BEAKER) (test 82 mL/min/1.73 sq m ESTIMATED GFR IS NOT wtsl=0149) ACCURATE CREATININE CLEARANCE IN PREDICTING GLOMERULAR FILTRATION RATE. ESTIMATED GFR IS NOT APPLICABLE FOR DIALYSIS PATIENTS. CBC W/PLT COUNT & AUTO [id number] 05:55:00 Test Item Value Reference Range Comments WHITE BLOOD CELL COUNT (BEAKER) (test dndm=139) 5.9 K/ L 3.5-10.5 RED BLOOD CELL COUNT (BEAKER) (test bpuh=957) 4.25 M/ L 4.63-6.08 HEMOGLOBIN (BEAKER) (test tlgf=263) 12.3 GM/DL 13.7-17.5 HEMATOCRIT (BEAKER) (test bwtv=060) 37.8 % 40.1-51.0 MEAN CORPUSCULAR VOLUME (BEAKER) (test qfpc=423) 88.9 fL 79.0-92.2 MEAN CORPUSCULAR HEMOGLOBIN (BEAKER) (test 28.9 pg 25.7-32.2 frxx=285) MEAN CORPUSCULAR HEMOGLOBIN CONC (BEAKER) (test 32.5 GM/DL 32.3-36.5 iqbm=890) RED CELL DISTRIBUTION WIDTH (BEAKER) (test 15.9 % 11.6-14.4 vshk=076) PLATELET COUNT (BEAKER) (test srfk=895) 173 K/CU MM 150-450 MEAN PLATELET VOLUME (BEAKER) (test mrdv=130) 11.5 fL 9.4-12.4 NUCLEATED RED BLOOD CELLS (BEAKER) (test 0 /100 WBC 0-0 izop=710) NEUTROPHILS RELATIVE PERCENT (BEAKER) (test 48 % chrz=875) LYMPHOCYTES RELATIVE PERCENT (BEAKER) (test 34 % bzun=374) MONOCYTES RELATIVE PERCENT (BEAKER) (test 12 % gktf=602) EOSINOPHILS RELATIVE PERCENT (BEAKER) (test 4 % lmpb=645) BASOPHILS RELATIVE PERCENT (BEAKER) (test 2 % fqsf=477) NEUTROPHILS ABSOLUTE COUNT (BEAKER) (test 2.85 K/ L 1.78-5.38 uali=751) LYMPHOCYTES ABSOLUTE COUNT (BEAKER) (test 2.02 K/ L 1.32-3.57 nefc=436) MONOCYTES ABSOLUTE COUNT (BEAKER) (test 0.68 K/ L 0.30-0.82 uobx=035) EOSINOPHILS ABSOLUTE COUNT (BEAKER) (test 0.25 K/ L 0.04-0.54 xonh=547) BASOPHILS ABSOLUTE COUNT (BEAKER) (test 0.09 K/ L 0.01-0.08 jkjh=722) IMMATURE GRANULOCYTES-RELATIVE PERCENT (BEAKER) 1 % 0-1 (test iuiq=1498) CBC W/PLT COUNT & AUTO [id number] 05:15:00 Test Item Value Reference Range Comments WHITE BLOOD CELL COUNT (BEAKER) (test kymx=904) 5.4 K/ L 3.5-10.5 RED BLOOD CELL COUNT (BEAKER) (test kuqy=393) 4.34 M/ L 4.63-6.08 HEMOGLOBIN (BEAKER) (test qqck=293) 12.5 GM/DL 13.7-17.5 HEMATOCRIT (BEAKER) (test gedd=374) 39.0 % 40.1-51.0 MEAN CORPUSCULAR VOLUME (BEAKER) (test qbdn=328) 89.9 fL 79.0-92.2 MEAN CORPUSCULAR HEMOGLOBIN (BEAKER) (test 28.8 pg 25.7-32.2 dvmp=742) MEAN CORPUSCULAR HEMOGLOBIN CONC (BEAKER) (test 32.1 GM/DL 32.3-36.5 dnhf=359) RED CELL DISTRIBUTION WIDTH (BEAKER) (test 15.9 % 11.6-14.4 qhnu=032) PLATELET COUNT (BEAKER) (test fynp=881) 162 K/CU MM 150-450 MEAN PLATELET VOLUME (BEAKER) (test olgu=736) 10.6 fL 9.4-12.4 NUCLEATED RED BLOOD CELLS (BEAKER) (test 0 /100 WBC 0-0 taim=573) NEUTROPHILS RELATIVE PERCENT (BEAKER) (test 52 % qmin=571) LYMPHOCYTES RELATIVE PERCENT (BEAKER) (test 31 % xrgn=881) MONOCYTES RELATIVE PERCENT (BEAKER) (test 11 % bqpg=449) EOSINOPHILS RELATIVE PERCENT (BEAKER) (test 4 % ricp=437) BASOPHILS RELATIVE PERCENT (BEAKER) (test 2 % cnfl=215) NEUTROPHILS ABSOLUTE COUNT (BEAKER) (test 2.78 K/ L 1.78-5.38 atsg=094) LYMPHOCYTES ABSOLUTE COUNT (BEAKER) (test 1.69 K/ L 1.32-3.57 cwaa=015) MONOCYTES ABSOLUTE COUNT (BEAKER) (test 0.59 K/ L 0.30-0.82 yime=770) EOSINOPHILS ABSOLUTE COUNT (BEAKER) (test 0.21 K/ L 0.04-0.54 vpko=340) BASOPHILS ABSOLUTE COUNT (BEAKER) (test 0.09 K/ L 0.01-0.08 wdpu=648) IMMATURE GRANULOCYTES-RELATIVE PERCENT (KYARA) 1 % 0-1 (test paan=1179) CT, BRAIN, WITHOUT [id number] 15:31:00FINAL REPORT CT head without contrast 03/12/2017 [...] MDReport Verified Date/Time: 03/12/2017 15:31:17 Reading Location: [address] Neuro Reading Room TROPONIN [id number] 15:26:00 Test Item Value Reference Range Comments TROPONIN I (KYARA) (test lxbn=427) 0.02 ng/mL 0.00-0.03 Troponin I (TnI) levels [...] acidosis, acute neurological disease, and persistent tachyarrhythmia.HEMOGLOBIN [id number] 12:38:00 Test Item Value Reference Range Comments HEMOGLOBIN A1C (KYARA) (test vxib=783) 5.6 % 4.3-6.1 FastingRAD, CHEST, 1 VIEW, NON [id number] 10:06:00Reason for exam:->rule out pneumoniaShould this be [...] 10:06:57 Reading Location: [facility] Radiology Reading Room [id number] 09:08:00 Test Item Value Reference Range Comments HOMOCYSTEINE (BEAKER) (test mwit=769) 11.8 umol/L 5.1-15.4 FastingCREATINE KINASE (CK), TOTAL AND [id number] 08:55:00 Test Item Value Reference Range Comments CREATINE KINASE TOTAL (BEAKER) (test bsmp=672) 59 U/L 29-200 CREATINE KINASE-MB (BEAKER) (test jaco=282) 1.0 ng/mL 0.0-6.6 CREATINE KINASE-MB INDEX (BEAKER) (test tpiw=365) 1.7 % CK-MB Reference Range:<6.7 Normal6.7-10.0 Borderline>10.0 AbnormalFastingFastingTROPONIN [id number] 08:55:00 Test Item Value Reference Range Comments TROPONIN I (BEAKER) (test esqs=603) < ng/mL 0.00-0.03 Troponin I (TnI) levels [...] acidosis, acute neurological disease, and persistent tachyarrhythmia.FastingLIPID [id number] 08:48:00 Test Item Value Reference Range Comments TRIGLYCERIDES (BEAKER) (test racl=964) 151 mg/dL CHOLESTEROL (BEAKER) (test dvsk=694) 147 mg/dL HDL CHOLESTEROL (BEAKER) (test brwh=058) 29 mg/dL LDL CHOLESTEROL CALCULATED (BEAKER) (test 88 mg/dL qwyp=409) Triglyceride Reference Range: Low Risk <150 Borderline 150- 199 High Risk 200-499 Very High Risk >=500Cholesterol Reference Range: Low Risk <200 Borderline 200-239 High Risk > 240HDL Cholesterol Reference Range: Low Risk >=60 High Risk <40LDL Cholesterol Reference Range: Optimal <100 Near Optimal 100-129 Borderline 130-159 High 160-189 Very High >=190 FastingBASIC METABOLIC [id number] 08:48:00 Test Item Value Reference Range Comments SODIUM (BEAKER) (test 136 meq/L 136-145 cmit=843) POTASSIUM (BEAKER) (test 4.4 meq/L 3.5-5.1 aqxf=640) CHLORIDE (BEAKER) (test 104 meq/L 98-107 ujgw=374) CO2 (BEAKER) (test 25 meq/L 22-29 vqfm=156) BLOOD UREA NITROGEN 15 mg/dL 7-21 (BEAKER) (test eivf=416) CREATININE (BEAKER) (test 0.87 mg/dL 0.57-1.25 dmkz=341) GLUCOSE RANDOM (BEAKER) 102 mg/dL 70-105 (test ykns=309) CALCIUM (BEAKER) (test 8.9 mg/dL 8.4-10.2 rjou=163) EGFR (BEAKER) (test 87 mL/min/1.73 sq m ESTIMATED GFR IS NOT qyvp=0102) ACCURATE CREATININE CLEARANCE IN PREDICTING GLOMERULAR FILTRATION RATE. ESTIMATED GFR IS NOT APPLICABLE FOR DIALYSIS PATIENTS. FastingCBC W/PLT COUNT & AUTO [id number] 08:24:00 Test Item Value Reference Range Comments WHITE BLOOD CELL COUNT (BEAKER) (test eyvh=869) 5.7 K/ L 3.5-10.5 RED BLOOD CELL COUNT (BEAKER) (test ekjt=580) 4.23 M/ L 4.63-6.08 HEMOGLOBIN (BEAKER) (test pvdc=548) 12.3 GM/DL 13.7-17.5 HEMATOCRIT (BEAKER) (test fdxd=154) 37.9 % 40.1-51.0 MEAN CORPUSCULAR VOLUME (BEAKER) (test fdfy=604) 89.6 fL 79.0-92.2 MEAN CORPUSCULAR HEMOGLOBIN (BEAKER) (test 29.1 pg 25.7-32.2 wjku=631) MEAN CORPUSCULAR HEMOGLOBIN CONC (BEAKER) (test 32.5 GM/DL 32.3-36.5 uwle=603) RED CELL DISTRIBUTION WIDTH (BEAKER) (test 15.9 % 11.6-14.4 lbab=506) PLATELET COUNT (BEAKER) (test ztmn=819) 156 K/CU MM 150-450 MEAN PLATELET VOLUME (BEAKER) (test mhup=507) 10.2 fL 9.4-12.4 NUCLEATED RED BLOOD CELLS (BEAKER) (test 0 /100 WBC 0-0 fyho=878) NEUTROPHILS RELATIVE PERCENT (BEAKER) (test 47 % spet=435) LYMPHOCYTES RELATIVE PERCENT (BEAKER) (test 37 % lhux=119) MONOCYTES RELATIVE PERCENT (BEAKER) (test 12 % utju=818) EOSINOPHILS RELATIVE PERCENT (BEAKER) (test 3 % bbcp=942) BASOPHILS RELATIVE PERCENT (BEAKER) (test 2 % tlfv=573) NEUTROPHILS ABSOLUTE COUNT (BEAKER) (test 2.66 K/ L 1.78-5.38 dndt=275) LYMPHOCYTES ABSOLUTE COUNT (BEAKER) (test 2.09 K/ L 1.32-3.57 sxtt=477) MONOCYTES ABSOLUTE COUNT (BEAKER) (test 0.70 K/ L 0.30-0.82 rswk=296) EOSINOPHILS ABSOLUTE COUNT (BEAKER) (test 0.15 K/ L 0.04-0.54 xbdh=294) BASOPHILS ABSOLUTE COUNT (BEAKER) (test 0.09 K/ L 0.01-0.08 vrzv=642) IMMATURE GRANULOCYTES-RELATIVE PERCENT (BEAKER) 1 % 0-1 (test tpoe=9025) TSH/FREE T4 IF [id number] 03:38:00 Test Item Value Reference Range Comments THYROID STIMULATING HORMONE (BEAKER) (test 2.01 uIU/mL 0.35-4.94 bnba=260) VITAMIN B12 AND [id number] 03:38:00 Test Item Value Reference Range Comments VITAMIN B12 (BEAKER) (test mhpo=680) 1008 pg/mL 213-816 FOLATE (BEAKER) (test tttb=748) 8.4 ng/mL >=7.0 CREATINE KINASE (CK), TOTAL AND [id number] 01:03:00 Test Item Value Reference Range Comments CREATINE KINASE TOTAL (BEAKER) (test trzc=761) 66 U/L 29-200 CREATINE KINASE-MB (BEAKER) (test xnar=363) 1.4 ng/mL 0.0-6.6 CREATINE KINASE-MB INDEX (BEAKER) (test fkxp=766) 2.1 % CK-MB Reference Range:<6.7 Normal6.7-10.0 Borderline>10.0 AbnormalTROPONIN [id number] 01:03:00 Test Item Value Reference Range Comments TROPONIN I (BEAKER) (test cucx=963) 0.02 ng/mL 0.00-0.03 Troponin I (TnI) levels [...] acute neurological disease, and persistent tachyarrhythmia.BASIC METABOLIC [id number] 00:56:00 Test Item Value Reference Range Comments SODIUM (BEAKER) (test 136 meq/L 136-145 ubno=944) POTASSIUM (BEAKER) (test 3.9 meq/L 3.5-5.1 hhgm=083) CHLORIDE (BEAKER) (test 104 meq/L 98-107 cchx=138) CO2 (BEAKER) (test 24 meq/L 22-29 xocy=398) BLOOD UREA NITROGEN 14 mg/dL 7-21 (BEAKER) (test udzv=712) CREATININE (BEAKER) (test 0.87 mg/dL 0.57-1.25 qniq=108) GLUCOSE RANDOM (BEAKER) 104 mg/dL 70-105 (test vyih=231) CALCIUM (BEAKER) (test 9.2 mg/dL 8.4-10.2 ioul=736) EGFR (BEAKER) (test 87 mL/min/1.73 sq m ESTIMATED GFR IS NOT ephj=4810) ACCURATE CREATININE CLEARANCE IN PREDICTING GLOMERULAR FILTRATION RATE. ESTIMATED GFR IS NOT APPLICABLE FOR DIALYSIS PATIENTS. PROTHROMBIN TIME/[id number] 00:27:00 Test Item Value Reference Range Comments PROTIME (BEAKER) (test mkua=163) 17.2 seconds 11.7-14.7 INR (BEAKER) (test odre=985) 1.4 <=5.9 RECOMMENDED COUMADIN/WARFARIN INR THERAPY RANGESSTANDARD DOSE: 2.0 - 3.0 Includes: PROPHYLAXIS forvenous thrombosis, systemic embolization; TREATMENT for venous thrombosis and/or pulmonary embolus.HIGH RISK: Target INR is 2.5-3.5 for patients with mechanical heart valves.CBC W/PLT COUNT & AUTO [id number] 00:01:00 Test Item Value Reference Range Comments WHITE BLOOD CELL COUNT (BEAKER) (test fcyb=215) 8.2 K/ L 3.5-10.5 RED BLOOD CELL COUNT (BEAKER) (test eaxf=989) 4.57 M/ L 4.63-6.08 HEMOGLOBIN (BEAKER) (test ygcn=416) 13.2 GM/DL 13.7-17.5 HEMATOCRIT (BEAKER) (test vmzy=236) 40.5 % 40.1-51.0 MEAN CORPUSCULAR VOLUME (BEAKER) (test ztuc=719) 88.6 fL 79.0-92.2 MEAN CORPUSCULAR HEMOGLOBIN (BEAKER) (test 28.9 pg 25.7-32.2 qvba=044) MEAN CORPUSCULAR HEMOGLOBIN CONC (BEAKER) (test 32.6 GM/DL 32.3-36.5 gdzu=261) RED CELL DISTRIBUTION WIDTH (BEAKER) (test 15.9 % 11.6-14.4 qgvc=870) PLATELET COUNT (BEAKER) (test kutc=931) 198 K/CU MM 150-450 MEAN PLATELET VOLUME (BEAKER) (test neuh=625) 11.2 fL 9.4-12.4 NUCLEATED RED BLOOD CELLS (BEAKER) (test 0 /100 WBC 0-0 vsby=865) NEUTROPHILS RELATIVE PERCENT (BEAKER) (test 57 % fwya=751) LYMPHOCYTES RELATIVE PERCENT (BEAKER) (test 28 % pvth=464) MONOCYTES RELATIVE PERCENT (BEAKER) (test 10 % wrdv=558) EOSINOPHILS RELATIVE PERCENT (BEAKER) (test 3 % tztj=127) BASOPHILS RELATIVE PERCENT (BEAKER) (test 1 % jomk=756) NEUTROPHILS ABSOLUTE COUNT (BEAKER) (test 4.66 K/ L 1.78-5.38 nppo=481) LYMPHOCYTES ABSOLUTE COUNT (BEAKER) (test 2.29 K/ L 1.32-3.57 dmqc=595) MONOCYTES ABSOLUTE COUNT (BEAKER) (test 0.81 K/ L 0.30-0.82 vjaz=173) EOSINOPHILS ABSOLUTE COUNT (BEAKER) (test 0.25 K/ L 0.04-0.54 aohi=815) BASOPHILS ABSOLUTE COUNT (BEAKER) (test 0.10 K/ L 0.01-0.08 tfiv=969) IMMATURE GRANULOCYTES-RELATIVE PERCENT (BEAKER) 1 % 0-1 (test ghca=3249)
[2018-06-06 15:51] LABS: Absolute Lymphocytes (CBC) 1.9 K/uL (0.7-4.9); Absolute Monocytes 0.6 K/uL (0.1-1.3); Absolute Neutrophil 4.1 K/uL (1.8-8.0); Basophils % 0.2 % (0-1.3); Eosinophils % 0.7 % (0-4.4); Hematocrit 35.3 % (39.6-49.0); Lymphocytes % 28.7 % (15.3-44.8); MPV 8.9 fL (7.6-11.3); Monocytes % 9.3 % (3.3-12.3); RBC Red Blood Cell Count 4.61 M/uL (4.33-5.43)
[2018-06-06 15:53] LABS: Protime INR 1.08
[2018-06-06 16:18] LABS: ALT/SGPT 18 U/L (12-78); AST/SGOT 24 U/L (15-37); Albumin 3.9 g/dL (3.4-5.0); Alkaline Phosphatase 147 U/L (45-117); BUN Blood Urea Nitrogen 17 mg/dL (7-18); Bicarbonate 25 mmol/L (21-32); Bilirubin Direct 0.1 mg/dL (0-0.2); Bilirubin Total 0.5 mg/dL (0.2-1.0); Glucose Level 104 mg/dL (74-106); Magnesium 1.7 mg/dL (1.8-2.4); NT PRO-BNP 121 pg/mL (<125); Potassium 3.7 mmol/L (3.5-5.1); Protein, Total 8.2 g/dL (6.4-8.2); Sodium Level 132 mmol/L (136-145); Troponin (Emerg Dept Use Only) < 0.02 ng/mL (0.0-0.045)
--- NOTE | 2018-06-06 16:21 | RAD REPORT ---
EXAM DESCRIPTION: RAD - Chest Single View - 06/06/2018 3:43 pm CLINICAL HISTORY: CHEST PAIN Chest pain. COMPARISON: Chest Single View dated 05/28/2018; Chest Single View dated 05/18/2018; Chest Single View dated 02/14/2018; Chest Single View dated 11/30/2017 FINDINGS: Portable technique limits examination quality. The lungs are grossly clear. The heart is normal in size. No displaced fractures.Dual lead pacer aida ce is noted. IMPRESSION: No acute intrathoracic process suspected.
--- NOTE | 2018-06-06 17:28 | EDPHYS ---
Physician Documentation [facility] Name: Maurice Morfin Age: 68 yrs Sex: Male : 1950 Arrival Date: 06/06/2018 Time: 15:04 Bed 30 Private MD: Yung Thomas ED Physician Caio Cruz HPI: 06/06 15:16 This 68 yrs old Male presents to ER via Ambulatory with complaints of Chest jmm Pain. 15:16 The patient or guardian reports chest pain that is located primarily in the substernal jmm area. Onset: 1 hour(s) ago. The pain radiates to the left arm. The chest pain is described as sharp. This is a 68 year old male with a history of CVA, CAD, that presents to the ED with complaints of left sided chest pain described as sharp which radiates to his left arm. Patient also complains of shortness of breath. Symptoms began approx 1 hour ago. . Historical: - Allergies: 15:15 Codeine; ss - Home Meds: 17:30 clopidogrel 75 mg Oral tab 1 tab once daily [Active]; pantoprazole 40 mg Oral TbEC 1 ca1 tab once daily [Active]; atorvastatin 80 mg Oral tab 1 tab once daily [Active]; gabapentin 300 mg Oral cap 1 cap 3 times per day [Active]; losartan-hydrochlorothiazide 100-25 mg Oral tab [Active]; - PMHx: 15:15 Cholelithiasis; COPD; CVA; Dementia; enlarged prostate; Hernia; Hypertension; SD; PVD; ss TIA; - PSHx: 15:15 Heart stents; Leg stents; leg bypass; Pacemaker; Cholecystectomy; ss - Immunization history:: Adult Immunizations up to date. - Social history:: Smoking status: Patient uses tobacco products, 1-2 cigarettes/ day. - Ebola Screening: : Patient denies exposure to infectious person Patient denies travel to an Ebola-affected area in the 21 days before illness onset. ROS: 15:16 Constitutional: Negative for fever, chills, and weight loss. jmm 15:16 Cardiovascular: Positive for chest pain. 15:16 Respiratory: Positive for shortness of breath. 15:16 All other systems are negative. Exam: 15:16 Constitutional: This is a well developed, well nourished patient who is awake, alert, jmm and in no acute distress. Head/Face: atraumatic. Eyes: EOMI, no conjunctival erythema appreciated ENT: Moist Mucus Membranes Neck: Trachea midline, Supple Chest/axilla: Normal chest wall appearance and motion. 15:16 Abdomen/GI: Non distended, soft Back: Normal ROM Skin: General appearance color normal MS/ Extremity: Moves all extremities, no obvious deformities appreciated, no edema noted to the lower extremities Neuro: Awake and alert, normal gait 15:16 Cardiovascular: Rate: normal, Rhythm: regular. 15:16 Respiratory: the patient does not display signs of respiratory distress, Respirations: normal, Breath sounds: are clear throughout. Vital Signs: 15:15 BP 168 / 75; Pulse 86; Resp 25; Pulse Ox 100% on R/A; Weight 68.95 kg; Height 5 ft. 10 ss in. (177.80 cm); Pain 8/10; 16:30 BP 132 / 68; Pulse 68; Resp 19; Pulse Ox 100% on 2 lpm NC; ca1 17:28 BP 142 / 77; Pulse 81; Resp 19; Pulse Ox 100% on 2 lpm NC; ca1 18:00 BP 141 / 66; Pulse 72; Resp 19; Pulse Ox 100% on R/A; ca1 15:15 Body Mass Index 21.81 (68.95 kg, 177.80 cm) ss MDM: 15:16 Patient medically screened. john paul 17:25 Data reviewed: vital signs, nurses notes, lab test result(s), EKG, radiologic studies. [facility] Test interpretation: by ED physician or midlevel provider: ECG. ED course: patient was recently admitted for chest pain earlier this month with negative stress test and nuclear scan. I discussed the patient with Dr. Gonzalez whom stated his most recent heart cath was clear. Dr. Gonzalez agreed with the plan of outpatient follow up. . 06/06 15:15 Order name: Basic Metabolic Panel; Complete Time: 16:22 [facility] 06/06 15:15 Order name: CBC with Diff; Complete Time: 18:20 [facility] 06/06 15:15 Order name: LFT's; Complete Time: 16:22 [facility] 06/06 15:15 Order name: Magnesium; Complete Time: 16:22 [facility] 06/06 15:15 Order name: NT PRO-BNP; Complete Time: 16:22 [facility] 06/06 15:15 Order name: PT-INR; Complete Time: 16:22 [facility] 06/06 15:15 Order name: Troponin (emerg Dept Use Only); Complete Time: 16:22 [facility] 06/06 15:15 Order name: XRAY Chest (1 view); Complete Time: 16:22 [facility] 06/06 15:15 Order name: EKG; Complete Time: 15:16 [facility] 06/06 15:15 Order name: Cardiac monitoring; Complete Time: 15:16 [facility] 06/06 15:15 Order name: EKG - Nurse/Tech; Complete Time: 15:16 [facility] 06/06 15:15 Order name: IV Saline Lock; Complete Time: 15:16 [facility] 06/06 16:02 Order name: CBC Smear Scan; Complete Time: 18:20 [facility] 06/06 15:15 Order name: Labs collected and sent; Complete Time: 15:16 [facility] 06/06 15:15 Order name: O2 Per Protocol; Complete Time: 15:16 [facility] 06/06 15:15 Order name: O2 Sat Monitoring; Complete Time: 15:31 [facility] Administered Medications: 17:24 Drug: Aspirin Chewable Tablet 324 mg Route: PO; ca1 18:00 Follow up: Response: No adverse reaction; Pain is decreased ca1 Disposition: 06/07 07:27 Co-signature as Attending Physician, Caio Cruz MD I agree with the assessment and [facility] plan of care. Disposition: 06/06/18 17:27 Discharged to Home. Impression: Chest pain, unspecified. - Condition is Stable. - Discharge Instructions: Nonspecific Chest Pain. - Medication Reconciliation Form, Thank You Letter, Antibiotic Education, Prescription Opioid Use form. - Follow up: Luis Carlos Quevedo MD; When: 2 - 3 days; Reason: Recheck today's complaints, Continuance of care, Re-evaluation by your physician. Signatures: Dispatcher [employer] NEHEMIAHCT Caio Cruz MD MD cha Mickail, Joel, PA PA jmm Smirch, Shelby, RN RN ss Renea Shafer RN RN ca1 Corrections: (The following items were deleted from the chart) 06/06 18:22 17:27 06/06/2018 17:27 Discharged to Home. Impression: Chest pain, unspecified. ca1 Condition is Stable. Forms are Medication Reconciliation Form, Thank You Letter, Antibiotic Education, Prescription Opioid Use. Follow up: Luis Carlos Quevedo; When: 2 - 3 days; Reason: Recheck today's complaints, Continuance of care, Re-evaluation by your physician. ruby
--- NOTE | 2018-06-06 17:28 | ER ---
Nurse's Notes [facility] Name: Maurice oMrfin Age: 68 yrs Sex: Male : 1950 Arrival Date: 06/06/2018 Time: 15:04 Bed 30 Private MD: Yung Thomas Diagnosis: Chest pain, unspecified Presentation: 06/06 15:13 Presenting complaint: Patient states: chest pain that began 1 hour ago. Transition of care: patient was not received from another setting of care. Onset of symptoms was June 06, 2018. Risk Assessment: Do you want to hurt yourself or someone else? Patient reports no desire to harm self or others. Initial Sepsis Screen: Does the patient meet any 2 criteria? No. Patient's initial sepsis screen is negative. Does the patient have a suspected source of infection? No. Patient's initial sepsis screen is negative. Care prior to arrival: None. 15:13 Method Of Arrival: Ambulatory ss 15:13 Acuity: WAYLON 3 ss Historical: - Allergies: 15:15 Codeine; ss - Home Meds: 17:30 clopidogrel 75 mg Oral tab 1 tab once daily [Active]; pantoprazole 40 mg Oral TbEC 1 ca1 tab once daily [Active]; atorvastatin 80 mg Oral tab 1 tab once daily [Active]; gabapentin 300 mg Oral cap 1 cap 3 times per day [Active]; losartan-hydrochlorothiazide 100-25 mg Oral tab [Active]; - PMHx: 15:15 Cholelithiasis; COPD; CVA; Dementia; enlarged prostate; Hernia; Hypertension; SC; PVD; ss TIA; - PSHx: 15:15 Heart stents; Leg stents; leg bypass; Pacemaker; Cholecystectomy; ss - Immunization history:: Adult Immunizations up to date. - Social history:: Smoking status: Patient uses tobacco products, 1-2 cigarettes/ day. - Ebola Screening: : Patient denies exposure to infectious person Patient denies travel to an Ebola-affected area in the 21 days before illness onset. Screenin:20 Abuse screen: Denies threats or abuse. Denies injuries from another. Nutritional ca1 screening: No deficits noted. Tuberculosis screening: No symptoms or risk factors identified. Fall Risk IV access (20 points). Assessment: 15:20 General: Appears in no apparent distress. comfortable, Behavior is calm, cooperative, ca1 appropriate for age. Pain: Complains of pain in left breast Pain radiates to mid-sternal area Pain currently is 7 out of 10 on a pain scale. Pain began 1 hour ago. Neuro: Level of Consciousness is awake, alert, obeys commands, Oriented to person, place, time, situation. Cardiovascular: Heart tones S1 S2 present Capillary refill < 3 seconds Patient's skin is warm and dry. Rhythm is Respiratory: Breath sounds are clear bilaterally. GI: Abdomen is flat, non-distended, Bowel sounds present X 4 quads. Reports nausea, since last night. : No deficits noted. No signs and/or symptoms were reported regarding the genitourinary system. EENT: No deficits noted. No signs and/or symptoms were reported regarding the EENT system. Derm: Skin is fragile, Skin is pink, warm \T\ dry. Musculoskeletal: Circulation, motion, and sensation intact. Capillary refill < 3 seconds. 16:31 Reassessment: Patient appears in no apparent distress at this time. Patient and/or ca1 family updated on plan of care and expected duration. Pain level reassessed. Patient is alert, oriented x 3, equal unlabored respirations, skin warm/dry/pink. 17:28 Reassessment: Patient appears in no apparent distress at this time. Patient is alert, ca1 oriented x 3, equal unlabored respirations, skin warm/dry/pink. 18:00 Reassessment: Patient appears in no apparent distress at this time. Patient is alert, ca1 oriented x 3, equal unlabored respirations, skin warm/dry/pink. Vital Signs: 15:15 BP 168 / 75; Pulse 86; Resp 25; Pulse Ox 100% on R/A; Weight 68.95 kg; Height 5 ft. 10 ss in. (177.80 cm); Pain 8/10; 16:30 BP 132 / 68; Pulse 68; Resp 19; Pulse Ox 100% on 2 lpm NC; ca1 17:28 BP 142 / 77; Pulse 81; Resp 19; Pulse Ox 100% on 2 lpm NC; ca1 18:00 BP 141 / 66; Pulse 72; Resp 19; Pulse Ox 100% on R/A; ca1 15:15 Body Mass Index 21.81 (68.95 kg, 177.80 cm) ED Course: 15:04 Patient arrived in ED. mr 15:05 Yung Thomas MD is Private Physician. mr 15:14 Triage completed. ss 15:15 Giorgio Contreras PA is PHCP. [facility] 15:15 Caio Cruz MD is Attending Physician. m 15:15 Arm band placed on right wrist. ss 15:20 Patient has correct armband on for positive identification. Placed in gown. Bed in low ca1 position. Call light in reach. Side rails up X 1. groundwater monitoring technician on. Pulse ox on. NIBP on. Warm blanket given. 15:20 No provider procedures requiring assistance completed. Patient maintains SpO2 ca1 saturation greater than 95% on room air. 15:25 Renea Shafer, JAVAN is Primary Nurse. ca1 15:26 EKG done, by tech ed teacher. reviewed by Giorgio BROCK. [facility] 15:43 XRAY Chest (1 view) In Process Unspecified. EDMS 15:44 X-ray completed. Portable x-ray completed in exam room. Patient tolerated procedure mh1 well. 15:50 Missed attempt(s): 22 gauge in left antecubital area. ca1 16:05 Inserted saline lock: 22 gauge in left upper arm, using aseptic technique. ss 17:27 Luis Carlos Quevedo MD is Referral Physician. [facility] 18:15 IV discontinued, intact, bleeding controlled, No redness/swelling at site. Pressure ca1 dressing applied. Administered Medications: 17:24 Drug: Aspirin Chewable Tablet 324 mg Route: PO; ca1 18:00 Follow up: Response: No adverse reaction; Pain is decreased ca1 Outcome: 17:27 Discharge ordered by . madhavi 18:15 Discharged to home via wheelchair, with family, son ca1 18:15 Condition: stable 18:15 Discharge instructions given to patient, family, Instructed on discharge instructions, follow up and referral plans. Demonstrated understanding of instructions, follow-up care. 18:22 Patient left the ED. ca1 Signatures: Dispatcher [employer] EDMS Giorgio Contreras PA PA [facility] Lety Colbert Martha 1 Lupe Donaldson, JAVAN RN Mary Jo Child 3 Renea Shafer RN RN [facility]
[2018-06-06] MEDS ORDERED: ASPIRIN 81 MG CHEWABLE TABLET ONE (17:37)
[2018-06-06 18:19] LABS: Anisocytosis 1+; Blood Morphology Comment NOTED (NOT SEEN); Macrocytosis 1+; Ovalocytes 1+; Platelet Estimate ADEQ; Poikilocytosis 1+; Urine White Blood Cell Casts OK
[2018-06-06 19:15] VITALS: O2SAT 100
[2018-06-06 19:28] VITALS: BP 141/66
== END 2018-06-06 18:22 | disposition home or self-care (01) ==
LOC: ER 15:03
DX: R07.9 Chest pain, unspecified (principal); Z86.73 Personal history of transient ischemic attack (TIA), and cerebral infarction without residual deficits; J44.9 Chronic obstructive pulmonary disease, unspecified; I10 Essential (primary) hypertension; F17.210 Nicotine dependence, cigarettes, uncomplicated
CPT/HCPCS: 36415; 71045; 80048; 80076; 83735; 83880; 84484; 85025; 85610; 93005; 99285

== ENCOUNTER 2018-08-18 11:05 | Emergency (ER) | payer OTHER ==
--- OUTSIDE RECORDS SUMMARY | 2018-08-18 11:10 | XMS REPORT | Clinical Summary ---
:1950 Demographics Address [address] [place] [address] Home Phone Mobile Phone Preferred Language [place] Marital Status Unknown Hindu Affiliation Unknown Race White Ethnic Group Not or Author Organization [facility] Address [address] [place] [address] Support Name Relationship Address Phone Mami Pena [address] [place] [address] Kvng Pena [address] [place] [address] Care Team Providers Name Role Phone Yung [...] Postoperative anemia 01/14/2016 Coronary artery disease involving [place] coronary artery 01/10/2016 PAD (peripheral artery disease) [...] Dx); 04/10/2018 DO PVD (peripheral vascular disease) ([facility]); Devante Rodriguez Current smoker; MD Luis Hypertensive urgency 04/06/2018 Travel 11/30/2017 - Hospital Encounter Intensive Care Eze Gil ACS (acute coronary 12/02/2017 MD Jose syndrome) ([facility]) after 08/17/2017 Family History Medical History Relation Name Comments [...] Taken Blood Pressure 147/67 04/09/2018 3:23 PM CIRCUIT CLERK Pulse 60 04/09/2018 3:23 PM CIRCUIT CLERK Temperature 36.4 C (97.6 F) 04/09/2018 3:23 PM CIRCUIT CLERK Respiratory Rate 18 04/09/2018 3:23 PM CIRCUIT CLERK Oxygen Saturation 97% 04/09/2018 3:23 PM CIRCUIT CLERK Inhaled Oxygen Concentration - - Weight 69.7 kg (153 lb 9.6 oz) 04/08/2018 6:29 AM CIRCUIT CLERK Height 175.3 cm (5' 9") 04/06/2018 1:19 PM CIRCUIT CLERK Body Mass Index 22.68 04/08/2018 6:29 AM CIRCUIT CLERK Plan of Treatment Not on file Implants Implanted Type Area Accounting Machine Mechanic Device Shelf Model / Identifier Expiration Serial / Date Lot Grft Eptfe-Heparin Rng [id number] - [id number] Graft/Pa N/A: MARIELENA PRESCOTT & 09/01/2019 [id number] / Implanted: Qty: 1 on 01/13/2016 by Oniel Smith MD [facility] Arterial ASSC: MED PRDT [id number] / Procedures Procedure Name Priority Date/Time Associated Comments Diagnosis RHYTHM STRIP - SCAN 06/10/2018 10:30 AM CDT VASCULAR DIAGRAM 05/05/2018 4:01 -SCAN PM CIRCUIT CLERK CARDIAC CATH REPORT - 04/25/2018 2:01 SCAN PM CIRCUIT CLERK RHYTHM STRIP - SCAN 04/25/2018 2:01 PM CIRCUIT CLERK VASCULAR DIAGRAM 04/25/2018 2:01 -SCAN PM CIRCUIT CLERK TRANSFUSION SERVICE 04/09/2018 6:00 REPORT - SCAN PM CIRCUIT CLERK CBC W/PLT COUNT & Routine 04/09/2018 3:55 Results for this AUTO DIFFERENTIAL AM CIRCUIT CLERK procedure are in the results section. MAGNESIUM Routine 04/09/2018 3:55 Results for this AM CIRCUIT CLERK procedure are in the results section. BASIC METABOLIC PANEL Routine 04/09/2018 3:55 Results for this (7) AM CIRCUIT CLERK procedure are in the results section. CBC W/PLT COUNT & Routine 04/09/2018 3:55 Results for this AUTO DIFFERENTIAL AM CIRCUIT CLERK procedure are in the results section. POCT-ACT Routine 04/08/2018 7:42 Results for this PM CIRCUIT CLERK procedure are in the results section. PERIPHERAL ANGIOS / 04/08/2018 3:53 PAD (peripheral AORTOGRAM PM CIRCUIT CLERK artery disease) (HCC) APTT Routine 04/08/2018 8:31 Results for this AM CIRCUIT CLERK procedure are in the results section. TYPE AND SCREEN, Routine 04/08/2018 6:03 Results for this AUTOMATED AM CIRCUIT CLERK procedure are in the results section. LACTIC ACID, VENOUS Routine 04/08/2018 6:03 Results for this AM CIRCUIT CLERK procedure are in the results section. CREATINE KINASE (CK) Routine 04/08/2018 6:03 Results for this AM CIRCUIT CLERK procedure are in the results section. APTT Routine 04/08/2018 2:34 Results for this AM CIRCUIT CLERK procedure are in the results section. NERVE CONDUCTION Routine 04/07/2018 6:25 Results for this STUDIES; 3-4 STUDIES PM CIRCUIT CLERK procedure are in the results section. CT/CTA AAA AND RUNOFF STAT 04/07/2018 2:43 Results for this PM CIRCUIT CLERK procedure are in the results section. VENOUS DOPPLER LEG, Routine 04/07/2018 1:52 Results for this RIGHT PM CIRCUIT CLERK procedure are in the results section. ECG 12-LEAD Routine 04/07/2018 11:08 AM CIRCUIT CLERK Procedure Note - Interface, External Ris In - 04/07/2018 11:18 AM CIRCUIT CLERK Ventricular Rate 60 BPM Atrial Rate 60 BPM P-R Interval 164 ms QRS Duration 92 ms Q-T Interval 398 ms QTC Calculation(Bazett) 398 ms R [place] 4 degrees T [place] 64 degrees Electronic atrial pacemaker When compared with ECG of 07-APR-2018 11:07, No significant change was found ECG 12-LEAD Routine 04/07/2018 11:07 AM CIRCUIT CLERK Procedure Note - Interface, External Ris In - 04/07/2018 11:17 AM CIRCUIT CLERK Ventricular Rate 60 BPM Atrial Rate 60 BPM P-R Interval 164 ms QRS Duration 90 ms Q-T Interval 396 ms QTC Calculation(Bazett) 396 ms P [place] -12 degrees R [place] 6 degrees T [place] 60 degrees Electronic atrial pacemaker When compared with ECG of 01-DEC-2017 11:15, No significant change was found ECG 12-LEAD STAT 04/07/2018 11:07 AM CIRCUIT CLERK TROPONIN I Routine 04/07/2018 11:05 AM CIRCUIT CLERK ECHOCARDIOGRAM REPORT - 04/07/2018 9:50 AM CIRCUIT CLERK SCAN 2D ECHO W/ DOPPLER Routine 04/06/2018 9:45 PM CIRCUIT CLERK Results for this (CW/PW/COLOR) procedure are in the results section. ARTERIAL DOPPLER LEGS LORAINE 04/06/2018 7:30 PM CIRCUIT CLERK Results for this BILATERAL procedure are in the results section. CBC W/PLT COUNT & AUTO STAT 04/06/2018 3:47 PM CIRCUIT CLERK Results for this DIFFERENTIAL procedure are in the results section. BASIC METABOLIC PANEL (7) STAT 04/06/2018 3:47 PM CIRCUIT CLERK PT/APTT STAT 04/06/2018 3:47 PM CIRCUIT CLERK CBC W/PLT COUNT & AUTO STAT 04/06/2018 3:47 PM CIRCUIT CLERK Results for this DIFFERENTIAL procedure are in the results section. ARRYTHMIA IMPLANT REPORT - 02/03/2018 2:53 PM CIRCUIT CLERK SCAN ARRYTHMIA IMPLANT REPORT - 12/25/2017 8:00 [...] (7) Routine 11/30/2017 5:41 PM CDT after 08/17/2017 Results RHYTHM STRIP - SCAN (06/10/2018 10:30 AM CDT)Only the most recent of3 resultswithin the time period is included. Narrative Performed At VASCULAR DIAGRAM -SCAN (05/05/2018 4:01 PM CIRCUIT CLERK)Only the most recent of2 resultswithin the time period is included. Narrative Performed At CARDIAC CATH REPORT - SCAN (04/25/2018 2:01 PM CIRCUIT CLERK) Narrative Performed At TRANSFUSION SERVICE REPORT - SCAN (04/09/2018 6:00 PM CIRCUIT CLERK)Only the most recent of2 resultswithin the time period is included. Narrative Performed At CBC with platelet count + automated diff (04/09/2018 3:55 AM CIRCUIT CLERK)Only the most recent of5 resultswithin the time period is included. WBC 4.7 3.5 - 10.5 K/L [facility] RBC 3.54 (L) 4.63 - 6.08 M/L [facility] Hemoglobin 8.8 (L) 13.7 - 17.5 GM/DL [facility] Hematocrit 28.9 (L) 40.1 - 51.0 % [facility] MCV 81.6 79.0 - 92.2 fL [facility] MCH 24.9 (L) 25.7 - 32.2 pg [facility] MCHC 30.4 (L) 32.3 - 36.5 GM/DL [facility] RDW 18.3 (H) 11.6 - 14.4 % [facility] Platelets 156 150 - 450 K/CU MM [facility] MPV 11.0 9.4 - 12.4 fL [facility] nRBC 0 0 - 0 /100 WBC [facility] % Neutros 55 % [facility] % Lymphs 29 % [facility] % Monos 11 % [facility] % Eos 3 % [facility] % Baso 2 % [facility] # Neutros 2.59 1.78 - 5.38 K/L [facility] # Lymphs 1.34 1.32 - 3.57 K/L [facility] # Monos 0.51 0.30 - 0.82 K/L [facility] # Eos 0.15 0.04 - 0.54 K/L [facility] # Baso 0.07 0.01 - 0.08 K/L [facility] Immature Granulocytes-Relative 1 0 - 1 % [facility] Specimen Blood Performing Organization Address City/State/Zipcode Phone Number [facility] [address] [place] [address] CENTER Magnesium (04/09/2018 3:55 AM CIRCUIT CLERK)Only the most recent of2 resultswithin the time period is included. Magnesium 1.9 1.6 - 2.6 mg/dL [facility] Specimen Blood Performing Organization Address City/[facility] Phone Number [address] [phone] [place] Basic Metabolic Panel (04/09/2018 3:55 AM CIRCUIT CLERK)Only the most recent of5 resultswithin the time period is included. Sodium 136 136 - 145 meq/L [facility] Potassium 3.8 3.5 - 5.1 meq/L [facility] Chloride 107 98 - 107 meq/L [facility] CO2 24 22 - 29 meq/L [facility] BUN 14 7 - 21 mg/dL [facility] Creatinine 0.84 0.57 - 1.25 mg/dL [facility] Glucose 113 (H) 70 - 105 mg/dL [facility] Calcium 8.1 (L) 8.4 - 10.2 mg/dL [facility] EGFR 91Comment: ESTIMATED GFR IS mL/min/1.73 sq m [facility] NOT ACCURATE CREATININE [facility] CLEARANCE IN PREDICTING GLOMERULAR FILTRATION RATE. ESTIMATED GFR IS NOT APPLICABLE FOR DIALYSIS PATIENTS. Specimen Blood Performing Organization Address [facility] Phone Number [address] [address] [phone] [place] POC ACTIVATED CLOTTING TIME (04/08/2018 7:42 PM CIRCUIT CLERK) Activated Clotting Time 158Comment: TESTED AT sec [address] [address] Specimen Blood Performing Organization Address City/[facility]/Zipcode Phone Number [address] [address] [place] aPTT (04/08/2018 8:31 AM CIRCUIT CLERK)Only the most recent of2 resultswithin the time period is included. PTT 76.2 (H) 22.5 - 36.0 seconds [facility] Specimen Blood Performing Organization Address [facility] Phone Number [address] [address] CENTER Type and screen, automated (04/08/2018 6:03 AM CIRCUIT CLERK)Only the most recent of2 resultswithin the time period is included. ABO/RH AUTOMATED (BEAKER) O POSITIVE SURGERY [facility] Ab Scrn NEGATIVE SURGERY [facility] Specimen Blood Performing Organization Address [facility] Phone Number [address] [address] Lactic acid, venous, whole blood (04/08/2018 6:03 AM CIRCUIT CLERK) Lactate, Venous 1.1 0.5 - 2.2 mmol/L [facility] Specimen Blood Performing Organization Address [facility] Phone Number [address] [address] [place] Creatine Kinase (CK) (04/08/2018 6:03 AM CIRCUIT CLERK) Total CK 74 29 - 200 U/L [facility] Specimen Blood Performing Organization Address [facility] Phone Number [address] [address] [place] NERVE CONDUCTION STUDIES; 3-4 STUDIES (04/07/2018 6:25 PM CIRCUIT CLERK) Specimen Narrative Performed At [facility] Neurophysiology Department ELECTROMYOGRAPHY / NERVE CONDUCTION STUDY [address] [place] [address] [address] [place] [address] Name: Mami Pena Address:Date of [...] External Ris In - 04/08/2018 6:53 AM CIRCUIT CLERK [facility] Neurophysiology Department ELECTROMYOGRAPHY / NERVE CONDUCTION STUDY [address] [place] [address] Name: Mami Pena Address: Date of : [...] M.D. Performing Organization Address City/State/Zipcode Phone Number Occasion CTA AAA and Runoff (04/07/2018 2:43 PM CIRCUIT CLERK) Specimen Narrative Performed At Addendum Begins Occasion REPORT STATUS:A Addendum: I agree with the previously described non vascular findings. Signed: Angel Payne MD Report Verified Date/Time:04/07/2018 16:54:33 Reading Location: [place] [address] Angio Body Reading Room Addendum Ends FINAL [...] dictated regarding the non-vascular findings by the Household Refrigeration Mechanic Radiologist. Signed: Steve Musa MD Report Verified Date/Time:04/07/2018 15:32:19 Reading Location: [place] [address] Cardiology MRI Procedure Note Interface, External Ris In - 04/08/2018 10:27 PM CIRCUIT CLERK Addendum Begins REPORT STATUS:A Addendum: I agree with the previously described non vascular findings. Signed: Angel Payne MD Report Verified Date/Time: 04/07/2018 16:54:33 Reading Location: [facility] [address] Angio Body Reading Room Addendum [...] dictated regarding the non-vascular findings by the Household Refrigeration Mechanic Radiologist. Signed: Steve Musa MD Report Verified Date/Time: 04/07/2018 15:32:19 Reading Location: [place] [address] Cardiology MRI Performing Organization Address City/State/Zipcode Phone Number Occasion Venous doppler leg, right (04/07/2018 1:52 PM CIRCUIT CLERK) Ejection Fraction [facility] Specimen Impressions Performed At Right Impression [facility] 1. There is no deep venous obstruction [...] PV LAB - Lower Extremities DVT Study [facility] Demographics Patient Name Tyron PENA of Study 04/07/2018 [id number] Age 68 Visit Number [id number] GenderMale Accession Number [id number] Date of 1950 [facility] Number 1155 Physician SonographerGkolton Cruz.DAYDAY KellyT, ARDMS Physician Procedure Type of Study: Veins: Lower Extremities DVT Study, VENOUS DOPPLER LEG, RIGHT. Indications for Study:Leg pain . Patient Status:Routine. Study Location:Vascular Lab. Technical Quality:Adequate visualization. Risk Factors History of Disease + + + + !Diagnosis !Date!Comments ! + + + + !History/Risk!03/12/2017!Stroke, Current Smoker, PAD, HTN, HLD, CAD, ! !Factors:!!INTERNAL COMMUNICATIONS SPECIALIST D, NC, Pacemaker, Fem-fem Bypass (2015)! + + + + Procedure Note Interface, External Ris In - 04/07/2018 4:03 PM CIRCUIT CLERK PV LAB - Lower Extremities DVT Study Demographics Patient Name MAMI PENA Date of Study 04/07/2018 Age 68 Visit Number [id number] Gender Male Accession Number [id number] Date of 1950 Referring Christin Ferraro Room Number 1155 Physician Heating And Ventilation Engineer Jimmy Cruz. Interpreting Shivani Ramírez, T, ARDMS Physician Procedure Type of Study: Veins: Lower Extremities DVT Study, VENOUS DOPPLER LEG, RIGHT. Indications for Study:Leg pain . Patient Status:Routine. Study Location:Vascular Lab. Technical Quality:Adequate visualization. Risk Factors History of Disease + + + + !Diagnosis !Date !Comments ! + + + + !History/Risk !03/12/2017!Stroke, Current Smoker, PAD, HTN, HLD, CAD, ! !Factors: ! !COPD, NC, Pacemaker, Fem-fem Bypass (2015) ! + + + + Impressions Right [...] are measured in cm Performing Organization Address City/State/[facility] Phone Number [facility] ECG 12 lead (04/07/2018 11:07 AM CIRCUIT CLERK)Only the most recent of4 resultswithin the time period is included. Specimen Narrative Performed At Ventricular Rate 60 BPM [employer] Atrial Rate 60 BPM P-R Interval 164 ms QRS Duration 90 ms Q-T Interval 396 ms QTC Calculation(Bazett) 396 ms P [place] -12 degrees R [place] 6 degrees T [place] 60 degrees Electronic atrial pacemaker When compared with ECG of 01-DEC-2017 11:15, No significant change was found Confirmed by Tyler Hickman ([id number]) on 04/07/2018 8:25:38 PM Procedure Note Interface, External Ris In - 04/07/2018 8:25 PM CIRCUIT CLERK Ventricular Rate 60 BPM Atrial Rate 60 BPM P-R Interval 164 ms QRS Duration 90 ms Q-T Interval 396 ms QTC Calculation(Bazett) 396 ms P [place] -12 degrees R [place] 6 degrees T [place] 60 degrees Electronic atrial pacemaker When compared with ECG of 01-DEC-2017 11:15, No significant change was found Confirmed by Tyler Hickman ([id number]) on 04/07/2018 8:25:38 PM Performing Organization Address City/State/Zipcode Phone Number [employer] MUSE Troponin I (04/07/2018 11:05 AM CIRCUIT CLERK)Only the most recent of5 resultswithin the time period is included. Troponin I <0.01 0.00 - 0.03 ng/mL [facility] Specimen Blood Narrative Performed At Troponin I (TnI) levels must be interpreted [facility] in the context of the presenting [...] tachyarrhythmia. Performing Organization Address City/State/Zipcode Phone Number [facility] [address] [place] [address] CENTER ECHOCARDIOGRAM REPORT - SCAN (04/07/2018 9:50 AM CIRCUIT CLERK) Narrative Performed At 2D Echo W/Doppler(CW/PW/Color) (04/06/2018 9:45 PM CIRCUIT CLERK) Ejection Fraction [facility] Specimen Narrative Performed At Transthoracic Echocardiography Report (TTE) [facility] Demographics Patient Name JEAN, Date of Study 04/06/2018 MAMI [id number] GenderMale Visit Number [id number] [id number] Room Number 1155 Number Date of Birth1950Referring Physician Christin Ferraro Age68 year(s)Heating And Ventilation Engineer Krista Villatoro RDCS, RVT Connie Webb MD Physician Procedure Type of Study TTE procedure:2DECHO W DOPPLER(CW/PW/COLOR) (Routine) Indications:Acute Chest Pain/ Suspected CAD. Clinical History COPD, CAD, CVA, HTN, HLD,NC, PAD, PACEMAKER HGB 11.8 HCT 38.8 % [...] External Ris In - 04/07/2018 9:03 AM CIRCUIT CLERK Transthoracic Echocardiography Report (TTE) Demographics Patient Name JEAN, Date of Study 04/06/2018 MAMI Gender Male Visit Number [id number] Race Room Number 1155 Number Date of 1950 Referring Physician Christin Ferraro Age 68 year(s) Heating And Ventilation Engineer Krista Villatoro RDCS, RVT Interpreting Marshall Webb MD Physician Procedure Type of Study TTE procedure:2DECHO W DOPPLER(CW/PW/COLOR) (Routine) Indications:Acute Chest Pain/ Suspected CAD. Clinical History COPD, CAD, CVA, HTN, HLD,NC, PAD, PACEMAKER HGB 11.8 HCT 38.8 % [...] l/min/m^2 Performing Organization Address City/State/Zipcode Phone Number [facility] Arterial doppler legs bilateral (04/06/2018 7:30 PM CIRCUIT CLERK) Ejection Fraction [facility] Specimen Impressions Performed At Right Impression [facility] 1. The common femoral, profunda femoral, superficial [...] + + + + + + !Prox SUPERVISOR CIGAR MAKING MACHINE ! !86.4! !Biphasic ! !80.3! !Biphasic ! + + + + + + + + + + !Mid SUPERVISOR CIGAR MAKING MACHINE ! !106 !!Biphasic ! !98.5! !Biphasic ! + + + + + + + + + + !Dist SUPERVISOR CIGAR MAKING MACHINE ! !69.9! !Biphasic ! !76.8! !Biphasic ! + + + + + + + + + + !Prox ELPIDIO ! !62.7! !Biphasic ! !31.7! !Biphasic ! + + + + + + + + + + !Mid ELPDIIO ! !42.4! !Biphasic ! !39.3! !Biphasic ! [...] PV LAB - Lower Extremity Arterial Duplex [facility] Demographics Patient Name Tyron PENA of Study04/06/2018 [id number] Age68 Visit Number [id number] Gender Male Accession Number [id number] Date of Birth1950 [facility] [place])[facility] [id number] Physician SonographAnalia Rios Interpreting Shivani Ramírez MD [...] Current Smoker, PAD, HTN, HLD, CAD, ! !Factors:!!INTERNAL COMMUNICATIONS SPECIALIST D, NC, Pacemaker, Fem-fem Bypass (2015)! + + + + Procedure Note Interface, External Ris In - 04/07/2018 4:04 PM CIRCUIT CLERK PV LAB - Lower Extremity Arterial Duplex Demographics Patient Name MAMI PENA Date of Study 04/06/2018 Age 68 Visit Number [id number] Gender Male Accession Number [id number] Date of 1950 Referring Christin Ferraro Room Number 1155 Physician Heating And Ventilation Engineer Sebastian Rios Interpreting Shivani Ramírez MD RVS Physician Isatu Ramon, RVT Procedure Type of Study: Extremities Arteries: [...] HTN, HLD, CAD, ! !Factors: ! !COPD, NC, Pacemaker, Fem-fem Bypass (2016) ! + + [...] + + + +-------- + + !Prox SUPERVISOR CIGAR MAKING MACHINE ! !86.4 ! !Biphasic ! !80.3 ! !Biphasic ! + + + ------+ + + + +-------- + + !Mid SUPERVISOR CIGAR MAKING MACHINE ! !106 ! !Biphasic ! !98.5 ! !Biphasic ! + + + ------+ + + + +-------- + + !Dist SUPERVISOR CIGAR MAKING MACHINE ! !69.9 ! !Biphasic ! !76.8 ! [...] City/State/Zipcode Phone Number [facility] PT/aPTT (04/06/2018 3:47 PM CIRCUIT CLERK) Protime 13.8 11.7 - 14.7 seconds [facility] INR 1.1 <=5.9 [facility] PTT 31.6 22.5 - 36.0 seconds [facility] Specimen Blood Narrative Performed At RECOMMENDED COUMADIN/WARFARIN INR THERAPY [facility] RANGES STANDARD DOSE: 2.0 - 3.0 Includes: PROPHYLAXIS for venous thrombosis, systemic embolization; TREATMENT for venous thrombosis and/or pulmonary embolus. HIGH RISK: Target INR is 2.5-3.5 for patients with mechanical heart valves. Performing Organization Address City/State/Zipcode Phone Number [address] [address] [place] ARRYTHMIA IMPLANT REPORT - SCAN (02/03/2018 2:53 PM CIRCUIT CLERK)Only the most recent of3 resultswithin the time period is included. Narrative Performed At TSH/Free T4 If Indicated (12/02/2017 3:11 AM CDT) TSH 3.16 0.35 - 4.94 uIU/mL [facility] Specimen Blood Performing Organization Address City/State/Zipcode Phone Number [address] [address] CENTER Carotid doppler bilateral (12/01/2017 10:12 PM CDT) Ejection Fraction [facility] Specimen Impressions Performed At Right Impression [facility] 1. There is <50% diameter reduction (approximately [...] Performed At LAB - Carotid Duplex Study [facility] Demographics Patient Name JEAN,Date of Study 12/01/2017 MAMI [id number] Age 67 Visit Number [id number] GenderMale Accession Number [id number] Date of 1950 [facility] Room Number 7515 PhysicianMichael SonographerNoel EverettJ. Jose Perez MD, Physician RPVI Procedure Type of Study: Cerebral: Carotid, CAROTID DOPPLER, BILATERAL. Indications for Study:Stroke. Patient Status:Routine. Study Location:Portable. Technical Quality:Adequate visualization. Risk Factors History of Disease + + + + !Diagnosis !Date!Comments ! + + + + !History/Risk!03/12/2017!Stroke, Current Smoker, PAD, HTN, HLD, CAD, ! !Factors:!!INTERNAL COMMUNICATIONS SPECIALIST D, NC, Pacemaker, Fem-fem Bypass (2016)! + + + + Procedure Note Interface, External Ris In - 12/02/2017 6:29 AM CDT PV LAB - Carotid Duplex Study Demographics Patient Name JEAN, Date of Study 12/01/2017 MAMI Age 67 Visit Number [id number] Gender Male Accession Number [id number] Date of 1950 Referring Deyvigerson Loo Room Number 9015 Physician Jose Heating And Ventilation Engineer Noel Hayes Interpreting Cristobal Perez MD, Physician KETTY Procedure Type of Study: Cerebral: Carotid, CAROTID DOPPLER, BILATERAL. Indications for Study:Stroke. Patient Status:Routine. Study Location:Portable. Technical Quality:Adequate visualization. Risk Factors History of Disease + + + + !Diagnosis !Date !Comments ! + + + + !History/Risk !03/12/2017!Stroke, Current Smoker, PAD, HTN, HLD, CAD, ! !Factors: ! !COPD, NC, Pacemaker, Fem-fem Bypass (2016) ! + + [...] City/State/Zipcode Phone Number [facility] ECHOCARDIOGRAM REPORT - SCAN (12/01/2017 6:50 PM CDT) Narrative Performed At CT brain without IV contrast portable (12/01/2017 6:30 PM CDT) Specimen Narrative Performed At FINAL REPORT Occasion CT head without contrast 12/01/2017 6:40 PM [...] 18:41:06 Reading Location: [facility] [address] Radiology Reading Room Procedure Note Interface, External [...] 18:41:06 Reading Location: [facility] [address] Radiology Reading Room Performing Organization Address City/State/[facility] Phone Number [facility] Potassium (12/01/2017 3:53 PM CDT) Potassium 3.7 3.5 - 5.1 meq/L [facility] Specimen Blood Narrative Performed At Check Serum Potassium level 2 hours after [facility] oral potassium replacement completed or 30 min after intravenous potassium replacement. Performing Organization Address City/[facility] Phone Number [phone] [place] [address] [phone] CENTER Pacemaker Check (12/01/2017 10:56 AM CDT) Narrative Performed At Sakshi Britt RN 12/01/2017 10:56 AM Performed pacemaker interrogation per order.Preliminary report placed under cardiac studies in chart. 1. Normal device function 2. No events SAKSHI BRITT RN 12/01/2017 10:56 AM [id number] Transthoracic 2D echo w/ doppler (cw/pw/color) (12/01/2017 9:37 AM CDT) Ejection Fraction [facility] ECHO HEARTXlumena [facility] Specimen Narrative Performed At Transthoracic Echocardiography Report (TTE) [facility] ECHO HEARTCarePaymentROCK [facility] Demographics Patient Name JEAN, Date of Study 12/01/2017 MAMI [id number] GenderMale Visit Number [id number] Room Number 7515 Number Date of Birth1950Referring Physician Jostin Sevilla MD Age67 year(s)Heating And Ventilation Engineer Roxane Ragsdale [facility] AnalystAlex [place] InterpretingStpark Ritter Physician Procedure Type of Study TTE procedure:2DECHO W DOPPLER(CW/PW/COLOR) (Routine) Indications:Suspected cardiac source of emboli. Clinical History HGB 11.3 HCT 35.2 % DEFINITY 4ML ANGINA, COPD, CAD, CVA (03/2017), DEMENTIA, SHI, EMPHYSEMA, HTN, HLD, NC PPM (2008), SOB, SMOKER, TIA, PCI (01/20/2016), [...] Study 12/01/2017 MAMI Gender Male Visit Number [id number] Race Room Number 7515 Number Date of 1950 Referring Physician Jostin Sevilla MD Age 67 year(s) Heating And Ventilation Engineer Roxane Ragsdale [facility] Restaurant Hospitality Manager Edward Salvador Interpreting Physician TJ Gonzalez Procedure Type of Study TTE procedure:2DECHO W DOPPLER(CW/PW/COLOR) (Routine) Indications:Suspected cardiac source of emboli. Clinical History HGB 11.3 HCT 35.2 % DEFINITY 4ML ANGINA, COPD, CAD, CVA (03/2017), DEMENTIA, SHI, EMPHYSEMA, HTN, HLD, NC PPM (2008), SOB, SMOKER, TIA, PCI (01/20/2016), [...] Velocity: 2.15 m/s TR Gradient: 18.57 mmHg [facility] Organization Address City/State/Zipcode Phone Number [facility] ECHO HEARTLAB MKCKESSON CPACS Phosphorus (12/01/2017 8:14 AM CDT) Phosphorus 2.6Comment: Specimen slightly 2.3 - 4.7 mg/dL [facility] hemolyzed [facility] Specimen Blood Performing Organization Address City/[facility]/Zipcode Phone Number [address] [address] [phone] [place] Hemoglobin A1c (12/01/2017 3:33 AM CDT)Only the most recent of2 resultswithin the time period is included. Hemoglobin A1C 6.0 4.3 - 6.1 % [facility] Specimen Blood Performing Organization Address [facility] Phone Number [address] [address] [place] Fasting lipid panel (12/01/2017 3:33 AM CDT) Triglycerides 119 mg/dL [facility] Cholesterol 144 mg/dL [facility] HDL 26 mg/dL [facility] LDL Calculated 94 mg/dL [facility] Specimen Blood Narrative Performed At [facility] Triglyceride Reference Range: Low Risk <150 [id number] High Risk 200-499 Very High Risk>=500 Cholesterol Reference Range: Low Risk <200 [id number] High Risk>240 HDL Cholesterol Reference Range: Low Risk >=60 High Risk <40 LDL Cholesterol Reference Range: Optimal<100 Near [id number] Ygiurordum382-495 Oijq045-604 Very High >=190 [place] Performing Organization Address [facility]/Zipcode Phone Number [address] [address] [place] Vitamin B12 and Folate (11/30/2017 5:41 PM CDT) Vitamin B12 1,185 (H) 213 - 816 pg/mL [facility] Folate 2.3 (L) >=7.0 ng/mL [facility] Specimen Blood Performing Organization Address City/State/Zipcode Phone Number [facility] [address] [place], [place] [phone] CENTER after 08/17/2017 Insurance Payer Benefit Plan / Group Subscriber ID Type Phone Address [facility]IC[facility] HMO xxxxxxxxx MEDICARE D CARE MEDICAID MEDICAID [facility] xxxxxxxxx Medicaid Guarantor Name Account Type Relation to Date of Phone Billing Patient Address Mami Pena Personal/Family Self 1950 [address] (Home) [place] [address] Mami Pena Personal/Family Self 1950 [address] (Home) [place] [address] Advance Directives For more information, please contact:RADHA [facility] [place], [place] [phone] Code Status Date Activated Date Inactivated Comments Full Code 04/06/2018 5:09 PM This code status was determined by: Patient Full Code 11/30/2017 4:52 PM 12/02/2017 4:13 PM This code status was determined by: Patient Full Code 01/13/2016 11:29 AM 01/14/2016 8:29 PM This code status was determined by: Patient
--- OUTSIDE RECORDS SUMMARY | 2018-08-18 11:13 | XMS REPORT | Continuity of Care Document ---
:1950 Author Organization Interface Problems Problem Status Onset Classification Date Comments Source Date Reported Syncope and 07/19/[address] CHEST PAIN Active [address] CVA Active [address] PRABHA BILLING Active [address] HTN Active Finding 05/16/[address] [facility] [...] 05/16/[address] 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 Major depressive 07/19/2018 [facility] disorder, single Medical episode, Center unspecified Personal history of 07/19/2018 [facility] transient ischemic Medical attack , and Center cerebral infarction without residual deficits Peripheral vascular 07/19/2018 [facility] disease, Medical unspecified Center 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 Medical Center Presence of 07/19/2018 [facility] coronary Medical angioplasty implant Center and graft Personal history of 07/19/2018 [facility] other malignant Medical neoplasm of skin Center Nicotine 07/19/2018 [facility] dependence, Medical cigarettes, Center uncomplicated Presence of cardiac 07/19/2018 [facility] pacemaker Medical Center 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 [facility] CHEST PAIN, Active [facility] UNSPECIFIED Medical Center Medications Medication Details Route Status Patient Ordering Order Source Instructions Provider Date metoprolol tartrate 25 mg=1 tab, Active 12/30/ [facility] 25 mg oral tablet PO, BID, # 2018 Medical 60 tab, 1 Center Refill(s) heparin 5,000 unit, Inactive [facility] 1 mL, Route: 2018 Medical SUB-Q, Drug Center form: INJ, Q8H, Dosing Weight 69.659, kg, Start date: 12/30/17 0:00:00 CDT, Duration: 30 day, Stop date: 01/28/18 16:00:00 CSTNotes: porcine heparin Calcium Chloride 1,000 mL, Inactive [facility] 0.0014 MEQ/ML / 1,000 ml/hr, 2018 Medical Potassium Chloride Infuse Over: [place] 0.004 MEQ/ML / 1 hr, Route: Sodium Chloride IV, 1,000, 0.103 MEQ/ML / Drug form: Sodium Lactate INJ, ONCE, 0.028 MEQ/ML Priority: Injectable Solution STAT, Dosing Weight 69.659 kg, Start date: 12/29/17 16:42:00 CDT, Stop date: 12/29/17 16:42:00 CDT Docusate 100 mg, 1 No Longer [facility] cap, Route: Active 2018 Medical PO, Drug Center form: CAP, BID, Dosing Weight 68.182, kg, Start date: 12/29/17 9:00:00 CDT, Duration: 30 day, Stop date: 01/27/18 17:00:00 CSTNotes: (Same as: Colace) (Do Not Crush) Eliquis 5 mg, 1 tab, Inactive [facility] Route: PO, 2018 Medical Drug form: Center TAB, BID, Dosing Weight 68.182, kg, Start date: 12/29/17 9:00:00 CDT, Duration: 30 day, Stop date: 01/27/18 17:00:00 CSTNotes: Same as: Eliquis pantoprazole 40 mg, 1 No Longer [facility] tab, Route: Active 2018 Medical PO, Drug Center form: ECTAB, Daily, Dosing Weight 68.182, kg, Start date: 12/29/17 9:00:00 CDT, Duration: 30 day, Stop date: 01/27/18 9:00:00 CSTNotes: Tablet should not be chewed or crushed. (Same as: Protonix) Losartan 25 mg, 1 Inactive [place] tab, Route: 2018 Medical PO, Drug Center form: TAB, Daily, Dosing Weight 68.182, kg, Start date: 12/29/17 9:00:00 CDT, Duration: 30 day, Stop date: 01/27/18 9:00:00 CSTNotes: (Same as: Cozaar) Hydrochlorothiazide 25 mg, 1 Inactive [place] tab, Route: 2018 Medical PO, Drug Center form: TAB, Daily, Dosing Weight 68.182, kg, Start date: 12/29/17 9:00:00 CDT, Duration: 30 day, Stop date: 01/27/18 9:00:00 CSTNotes: (Same as: Hydrodiuril) With food. Plavix 75 mg, 1 No Longer [place] tab, Route: Active 2018 Medical PO, Drug Center form: TAB, Daily, Dosing Weight 68.182, kg, Start date: 12/29/17 9:00:00 CDT, Duration: 30 day, Stop date: 01/27/18 9:00:00 CSTNotes: (Same As: Plavix) Buspirone 15 mg, 3 No Longer [place] tab, Route: Active 2018 Medical PO, Drug Center form: TAB, BID, Dosing Weight 68.182, kg, Start date: 12/29/17 9:00:00 CDT, Duration: 30 day, Stop date: 01/27/18 17:00:00 CSTNotes: (Same As: BuSpar) Aspirin 81 mg, 1 No Longer [place] tab, Route: Active 2018 Medical PO, Drug Center form: ECTAB, Daily, Dosing Weight 68.182, kg, Start date: 12/29/17 9:00:00 CDT, Duration: 30 day, Stop date: 01/27/18 9:00:00 CSTNotes: Do not crush or chew. (Same As: Ecotrin) atorvastatin 40 mg, 1 No Longer [place] tab, Route: Active 2018 Medical PO, Drug Center form: TAB, Daily, Dosing Weight 68.182, kg, Start date: 12/29/17 9:00:00 CDT, Duration: 30 day, Stop date: 01/27/18 9:00:00 CSTNotes: (Same as: Lipitor) metoprolol tartrate 25 mg, 1 No Longer [facility] tab, Route: Active 2018 Medical PO, Drug Center form: TAB, BID, Dosing Weight 68.182, kg, Start date: 12/29/17 9:00:00 CDT, Duration: 30 day, Stop date: 01/27/18 17:00:00 CSTNotes: (Same as: Lopressor) Hydrochlorothiazide 1 tab, PO, No Longer [facility] 25 MG / Losartan Daily Active 2018 Medical Potassium 100 MG Center Oral Tablet atorvastatin 80 mg 80 mg=1 tab, Active [facility] oral tablet PO, Bedtime 2018 Medical Center Aspirin 81 mg, PO, Active [facility] Daily, 0 2018 Medical Refill(s) Center busPIRone 15 mg 15 mg=1 tab, Active [facility] oral tablet PO, BID, 0 2018 Medical Refill(s) Center atorvastatin 40 mg 40 mg=1 tab, Inactive [facility] oral tablet PO, Daily, 0 2018 Medical Refill(s) Center Hydrochlorothiazide 25 mg, PO, Inactive [facility] Daily, 0 2018 Medical Refill(s) Center losartan 100 mg 100 mg=1 Inactive [facility] oral tablet tab, PO, 2018 Medical Daily, 0 Center Refill(s) clopidogrel 75 MG 75 mg=1 tab, Active [facility] Oral Tablet PO, Daily, 0 2018 Medical [Plavix] Refill(s) Center pantoprazole 40 mg 40 mg=1 tab, Active [facility] oral enteric coated PO, Daily, 0 2018 Medical tablet Refill(s) Center normal saline 0.9% 1,000 mL, Inactive [facility] IV 1,000 mL Rate: 100 2018 Medical ml/hr, Center Infuse over: 10 hr, Route: IV, Dosing Weight 68.182 kg, Total Volume: 1,000, Priority: STAT, Start date: 12/28/17 18:15:00 CDT, Duration: 1 doses or times, Stop date: 12/29/17 4:14:00 CDT, 1.83, m2 iodixanol 100 mL, Inactive [facility] Route: IVP, 2018 Medical Drug Form: Center SOLN, Dosing Weight 68.182, kg, ONCALL, STAT, Start date: 12/28/17 15:44:00 CDT, Duration: 1 doses or times, Dose=2.2ml/k g, Max bmbs=727tu -- "To be infused by Radiology Staff ONLY" Morphine 4 mg, Route: Inactive [facility] IVP, ONCE, 2018 Medical Dosing Center Weight 68.182, kg, Priority: STAT, Start date: 12/28/17 13:44:00 CDT, Stop date: 12/28/17 13:44:00 CDT Isolyte S PH-7.4 500 mL, Inactive [facility] (Bolus) IV Route: IV, 2018 Medical ONCE, Dosing Center Weight 68.182 kg, Start date: 12/28/17 13:44:00 CDT, Stop date: 12/28/17 13:44:00 CDT Metoclopramide 10 mg, Inactive [facility] Route: IVP, 2017 Medical Drug form: Center INJ, ONCE, Dosing Weight 68.182, kg, Priority: STAT, Start date: 12/28/17 13:38:00 CDT, Stop date: 12/28/17 13:38:00 CDT Saline Flush 0.9% 10 mL, No Longer [facility] Route: MISC, Active 2017 Medical Drug Form: [place] INJ, kg, PRN, PRN Line Flush, Start date: 12/28/17 13:09:00 CDT, Duration: 30 day, Stop date: 01/27/18 12:08:00 CSTNotes: (Same as: BD Posiflush) Saline Flush 0.9% 10 mL, Inactive [facility] Route: IVP, 2018 Medical Drug Form: [place] INJ, kg, PRN, PRN Line Flush, Start date: 12/28/17 13:06:00 CDT, Duration: 30 day, Stop date: 01/27/18 12:05:00 CSTNotes: (Same as: BD Posiflush) Atorvastatin AT BEDTIME Active [facility]. Calcium 2017 [facility] Clopidogrel DAILY Active St. Bisulfate 2017 [facility] Tamsulosin TWICE DAILY Active St. 2017 [facility] Aspirin DAILY Active Card [facility] St[facility] 2017 [facility] Nitroglycerin Transfusion Active Card [facility] St. VS PRN For 2017 [facility] Chest Pain [facility] Codeine/Apap EVERY 6 Active Card [facility] St[facility] HOURS 2017 [facility] NEEDED PRN [place] For Pain Pantoprazole Sodium DAILY Active George [facility] St[facility] 2017 [facility] Omeprazole DAILY Active [facility] St[facility] 2016 [facility] Tamsulosin DAILY Active [place] [facility] St[facility] 2016 [facility] Metoprolol Tartrate TWICE DAILY Active [facility] St[facility] 2014 [facility] Famotidine AT BEDTIME Active [place] [facility] St[facility] 2014 [facility] Pantoprazole TWICE DAILY Active [place] [facility] St[facility] 2014 [facility] Metoprolol Tartrate TWICE DAILY Active [facility] St[facility] 2014 [facility] Omeprazole TWICE DAILY Active [facility] St. WITH MEALS 2014 [facility] Omeprazole DAILY Active [facility] St. Magnesium 2013 [facility] Omeprazole DAILY Active [facility] St. Magnesium 2013 [facility] Allergies, Adverse Reactions, Alerts Substance Category Reaction Severity Reaction Status Date Comments Source type Reported No Known Unknown Allergy to Active [facility] St[facility] Drug Substance 6 [facility] All[facility]ies [place] No Known Assertion Drug [facility] Medication allergy Medical Allergies Center Immunizations Immunization Date Given Site Status Last Comments Source Updated pneumococcal 10/21/2007 Right completed [facility] 23-valent vaccine [facility] Results Order Name Results Value Reference Date Interpretation Comments Source Range ELECTROLYT AGAP 11.9 meq/L 10.0 - 12/30 [facility] ES 20.0 /2017 Medical Center ELECTROLYT eGFR 96 12/30 Result Comment: The eGFR is calculated using the CKD-EPI formula. In most young, healthy individuals the eGFR will be >90 mL/ min/1.73m2. The eGFR declines with age. An eGFR of 60-89 may be normal in [facility] ES mL/min/1.7 /2018 some populations, particularly the elderly, for whom the CKD-EPI formula has not been extensively validated. Use of the eGFR is not recommended in the following populations: Medical 3m2 Center Individuals with unstable creatinine concentrations, including patients and those with serious co-morbid conditions. Patients with extremes in muscle mass or diet. The data above are obtained from the National Kidney Disease Education Program (NKDEP) which additionally recommends that when the eGFR is used in patients with extremes of body mass index for purposes of drug dosing, the eGFR should be multiplied by the estimated BMI. ELECTROLYT BUN 17 mg/dL 7 - 22 12/30 [facility] ELECTROLYT Glucose Lvl 79 mg/dL 70 - 99 12/30 [facility] ELECTROLYT Calcium Lvl 7.6 mg/dL 8.5 - 10.5 12/30 [facility] ELECTROLYT Chloride Lvl 108 meq/L 95 - 109 12/30 [facility] ELECTROLYT Potassium 3.9 meq/L 3.5 - 5.1 12/30 [facility] Lvl [facility] ELECTROLYT Sodium Lvl 140 meq/L 135 - 145 12/30 [facility] ELECTROLYT Creatinine 0.72 mg/dL 0.50 - 12/30 [facility] Lvl 1.40 [facility] ELECTROLYT CO2 24 meq/L 24 - 32 12/30 [facility] HEMATOLOGY Platelet 136 K/CMM 133 - 450 12/30 [facility] HEMATOLOGY MPV 8.5 fL 7.4 - 10.4 12/30 [facility] HEMATOLOGY RDW 17.9 % 11.5 - 12/30 [place] 14.5 [facility] HEMATOLOGY WBC 5.4 K/CMM 3.7 - 10.4 12/30 [facility] HEMATOLOGY Hgb 9.4 g/dL 14.0 - 12/30 [place] 18.0 [facility] HEMATOLOGY MCHC 32.9 g/dL 32.0 - 12/30 [place] 36.0 [facility] HEMATOLOGY Hct 28.5 % 42.0 - 12/30 [place] 54.0 [facility] HEMATOLOGY MCV 84.1 fL 80.0 - 12/30 [place] 94.0 [facility] HEMATOLOGY RBC 3.39 M/CMM 4.70 - 12/30 [place] 6.10 [facility] HEMATOLOGY MCH 27.6 pg 27.0 - 12/30 [place] 31.0 [facility] CARDIAC Troponin-I null 0.00 - 12/29 [place] ENZYMES 0.40 [facility] CARDIAC Troponin-I null 0.00 - 12/29 [place] ENZYMES 0.40 [facility] HEMATOLOGY Neutrophils 4.1 K/CMM 1.5 - 8.1 12/29 # /2017 [facility] HEMATOLOGY Basophils 1.3 % 0.0 - 1.0 12/29 [facility] HEMATOLOGY Monocytes # 0.7 K/CMM 0.0 - 0.8 12/29 [facility] HEMATOLOGY Lymphocytes 1.3 K/CMM 1.0 - 5.5 12/29 [facility] HEMATOLOGY Eosinophils 0.1 K/CMM 0.0 - 0.5 12/29 [facility] HEMATOLOGY Basophils # 0.1 K/CMM 0.0 - 0.2 12/29 [facility] HEMATOLOGY Lymphocytes 20.5 % 20.0 - 12/29 [place] 40.0 [facility] HEMATOLOGY Eosinophils 1.9 % 0.0 - 4.0 12/29 [facility] HEMATOLOGY Monocytes 11.0 % 2.0 - 12.0 12/29 [facility] HEMATOLOGY Segs 65.3 % 45.0 - 12/29 [place] 75.0 [facility] HEMATOLOGY WBC 6.2 K/CMM 3.7 - 10.4 12/29 [facility] HEMATOLOGY MCH 27.3 pg 27.0 - 12/29 31.0 [facility] HEMATOLOGY MCV 83.7 fL 80.0 - 12/29 [place] 94.0 [facility] HEMATOLOGY RBC 3.80 M/CMM 4.70 - 12/29 [place] 6. [facility] HEMATOLOGY Hct 31.8 % 42.0 - 12/29 [place] 54.0 [facility] HEMATOLOGY Hgb 10.4 g/dL 14.0 - 12/29 [place] 18.0 [facility] HEMATOLOGY RDW 17.7 % 11.5 - 12/29 [place] 14. [facility] HEMATOLOGY MCHC 32.6 g/dL 32.0 - 12/29 [place] 36.0 2018 [facility] HEMATOLOGY MPV 8.7 fL 7.4 - 10.4 12/29 [facility] HEMATOLOGY Platelet 167 K/CMM 133 - 450 12/[address] [place] [address] CARDIAC Troponin-I null 0.00 - 12/29 [facility] ENZYMES 0.40 [facility] CHEM PANEL Calcium Lvl 7.2 mg/dL 8.5 - 10.5 12/29 2017 [facility] CHEM PANEL AGAP 13.6 meq/L 10.0 - 12/29 [facility] 20.0 [facility] CHEM PANEL Sodium Lvl 137 meq/L 135 - 145 12/29 [facility] CHEM PANEL Creatinine 0.81 mg/dL 0.50 - 12/29 [facility] Lvl 1.40 [facility] CHEM PANEL Potassium 3.6 meq/L 3.5 - 5.1 12/29 [facility] CHEM PANEL CO2 19 meq/L 24 - 32 12/29 2017 [facility] CHEM PANEL Chloride Lvl 108 meq/L 95 - 109 12/[address] CHEM PANEL eGFR 91 12/29 Result Comment: The eGFR is calculated using the CKD-EPI formula. In most young, healthy individuals the eGFR will be >90 mL/ min/1.73m2. The eGFR declines with age. An eGFR of 60-89 may be normal in [facility] mL/min/1. some populations, particularly the elderly, for whom the CKD-EPI formula has not been extensively validated. Use of the eGFR is not recommended in the following populations: [address] Individuals with unstable creatinine concentrations, including patients and those with serious co-morbid conditions. Patients with extremes in muscle mass or diet. The data above are obtained from the National Kidney Disease Education Program (NKDEP) which additionally recommends that when the eGFR is used in patients with extremes of body mass index for purposes of drug dosing, the eGFR should be multiplied by the estimated BMI. CHEM PANEL BUN 17 mg/dL 7 - 22 12/29 [facility] CHEM PANEL Glucose Lvl 82 mg/dL 70 - 99 12/29 [facility]2017 [facility] CHEM PANEL Lactic Acid 1.5 mMol/L 0.5 - 2.2 12/29 [facility] CHEM PANEL Lactic Acid 1.3 mMol/L 0.5 - 2.2 12/29 [facility] LIPIDS Trig 89 mg/dL <=149 12/29 [facility]/dL [facility] LIPIDS Chol 150 mg/dL <=199 12/29 [facility] mg/dL [facility] LIPIDS HDL 33 mg/dL >=61 mg/dL 12/29 [facility] LIPIDS CHD Risk 4.55 4.00 - 12/29 [facility] 7.30 [facility] LIPIDS LDL 99 mg/dL <=99 mg/dL 12/29 [facility] (Calculated) [facility] LIPIDS VLDL 18 12/29 [facility] SPECIAL Hgb A1C 6.0 % <=5.6 % 12/29 [facility] CHEMISTRY [facility] URINE AND UA Blood Negative Negative 12/29 [facility] STOOL [facility] (12/28/17 7:27 PM) [place] URINE AND UA Spec Grav <=1.005 <=1.030 12/29 [facility] [place] [facility]
*NA*< [facility] br/>(12/28 7:27 PM) URINE AND UA Turbidity Clear Clear 12/29 [facility] [place] [facility] (12/28/17 7:27 PM) [place] URINE AND UA Glucose Negative Negative 12/29 [facility] [place] [facility] (12/28/17 7:27 PM) [place] URINE AND UA Protein Negative Negative 12/29 [facility] [place] [facility] (12/28/17 7:27 PM) [place] URINE AND UA Bili Negative Negative 12/29 [facility] [place] [facility] [address] [place] [address] *NA* [place] (12/28/17 7:27 PM) URINE AND UA Ketones Negative Negative 12/29 [facility] [place] [facility] [address] [place] [address] *NA* [place] (12/28/17 7:27 PM) URINE AND UA Leuk Est Negative Negative 12/29 [facility] [place] [facility] (12/28/17 7:27 PM) [place] URINE AND UA Nitrite Negative Negative 12/29 [facility] [place] [facility] (12/28/17 7:27 PM) [place] URINE AND UA 0.2 EU/dL 0.1 - 1.0 12/29 [facility] [place] [facility] Urobilinogen [facility] URINE AND UA pH 7.0 5.0 - 8.0 12/29 [facility] [place] [facility] [address] [place] [address] URINE AND UA Color Yellow Yellow 12/29 [facility] [place] [facility] [address] [place] [address] *NA* [place] (12/28/17 7:27 PM) URINE AND UA Bacteria None Seen None Seen 12/29 [facility] [place] [facility] (12/28/17 7:27 PM) [place] URINE AND UA WBC None Seen None Seen 12/29 [facility] [place] [facility] (12/28/17 7:27 PM) [place] URINE AND UA Sq Epi Rare /LPF Few /LPF 12/[address] URINE AND Micro? Performed 12/[address] (12/28/17 7:27 PM) [place] URINE AND UA RBC None Seen 0 - 2 12/29 [facility] (12/28/17 7:27 PM) [place] CHEM PANEL eGFR 69 12/28 Result Comment: The eGFR is calculated using the CKD-EPI formula. In most young, healthy individuals the eGFR will be >90 mL/ min/1.73m2. The eGFR declines with age. An eGFR of 60-89 may be normal in [facility] mL/min/1. some populations, particularly the elderly, for whom the CKD-EPI formula has not been extensively validated. Use of the eGFR is not recommended in the following populations: [address] Individuals with unstable creatinine concentrations, including patients and those with serious co-morbid conditions. Patients with extremes in muscle mass or diet. The data above are obtained from the National Kidney Disease Education Program (NKDEP) which additionally recommends that when the eGFR is used in patients with extremes of body mass index for purposes of drug dosing, the eGFR should be multiplied by the estimated BMI. CHEM PANEL POC 0.7 mg/dL 0.5 - 1.4 12/28 [facility] Creatinine [address] [place] [address] CARDIAC Total CK 105 unit/L 12 - 191 12/28 [facility] ENZYMES 2017 [facility] CHEM PANEL Globulin 5.2 g/dL 2.7 - 4.2 12/[address] CHEM PANEL A/G Ratio 0.8 0.7 - 1.6 12/[address] CHEM PANEL Albumin Lvl 4.4 g/dL 3.5 - 5.0 12/[address] CHEM PANEL Total 9.6 g/dL 6.4 - 8.4 12/28 [facility] Protein [address] CHEM PANEL Bili Direct 0.1 mg/dL 0.0 - 0.3 12/[address] CHEM PANEL Bili Total 0.6 mg/dL 0.2 - 1.3 12/28 [facility] CHEM PANEL Bili 0.5 mg/dL 0.0 - 1.0 12/28 [facility] Indirect [facility] CHEM PANEL AST 23 unit/L 0 - 37 12/28 [facility] CHEM PANEL ALT 23 unit/L 0 - 65 12/28 [facility] CHEM PANEL Alk Phos 161 unit/L 39 - 136 12/28 [facility] CHEM PANEL Lipase Lvl 202 unit/L 73 - 393 12/28 [facility]2017 [facility] CHEM PANEL Lactic Acid 2.5 mmol/L 0.5 - 2.2 12/28 [facility] ELECTROLYT AGAP 17.3 meq/L 10.0 - 12/28 [facility] 20.0 [facility] ELECTROLYT Calcium Lvl 9.9 mg/dL 8.5 - 10.5 12/28 [facility] ELECTROLYT Chloride Lvl 93 meq/L 95 - 109 12/28 [facility] ELECTROLYT CO2 26 meq/L 24 - 32 12/28 [facility] ELECTROLYT Sodium Lvl 132 meq/L 135 - 145 12/28 [facility] ELECTROLYT Potassium 4.3 meq/L 3.5 - 5.1 12/28 [facility] Lvl [facility] ELECTROLYT BUN 18 mg/dL 7 - 22 12/28 [facility] ELECTROLYT Glucose Lvl 133 mg/dL 70 - 99 12/28 [facility] ELECTROLYT Creatinine 0.99 mg/dL 0.50 - 12/28 [facility] Lvl 1.40 [facility] HEMATOLOGY Hct 40.9 % 42.0 - 12/28 [place] 54.0 [facility] HEMATOLOGY WBC 13.5 K/CMM 3.7 - 10.4 12/28 [facility] HEMATOLOGY RBC 4.91 M/CMM 4.70 - 12/28 [place] 6.10 [facility] HEMATOLOGY Hgb 13.5 g/dL 14.0 - 12/28 [place] 18.0 [facility] HEMATOLOGY MCV 83.4 fL 80.0 - 12/28 [place] 94.0 [facility] HEMATOLOGY MCH 27.5 pg 27.0 - 12/28 [place] 31.0 /2017 [facility] HEMATOLOGY RDW 18.2 % 11.5 - 12/28 [place] 14.5 [facility] HEMATOLOGY MCHC 33.0 g/dL 32.0 - 12/28 [place] 36.0 /2017 [facility] HEMATOLOGY Platelet 216 K/CMM 133 - 450 12/28 [facility] HEMATOLOGY MPV 8.5 fL 7.4 - 10.4 12/28 [facility] HEMATOLOGY PTT 31.5 s 22.9 - 12/28 [place] 35.8 /2017 [facility] HEMATOLOGY PT 13.2 s 12.0 - 12/28 [place] 14.7 [facility] HEMATOLOGY INR 1.00 0.85 - 12/28 [place] 1.17 [facility] HEMATOLOGY Basophils # 0.2 K/CMM 0.0 - 0.2 12/28 [facility] HEMATOLOGY Lymphocytes 11.4 % 20.0 - 12/28 [place] 40.0 /2017 [facility] HEMATOLOGY Monocytes 4.4 % 2.0 - 12.0 12/28 [facility] HEMATOLOGY Neutrophils 11.1 K/CMM 1.5 - 8.1 12/28 [place] # /2017 [facility] HEMATOLOGY Lymphocytes 1.5 K/CMM 1.0 - 5.5 12/28 [facility] # /2017 [facility] HEMATOLOGY Eosinophils 0.1 K/CMM 0.0 - 0.5 12/28 /2017 [facility] HEMATOLOGY Monocytes # 0.6 K/CMM 0.0 - 0.8 12/28 [facility] HEMATOLOGY Eosinophils 0.9 % 0.0 - 4.0 12/28 [facility] HEMATOLOGY Basophils 1.5 % 0.0 - 1.0 12/28 [facility] HEMATOLOGY Segs 81.8 % 45.0 - 12/28 [place] 75.0 2018 [facility] Abdomen/Pe Abdomen/Pelv EXAM: CT ABDOMEN AND PELVIS WITH CONTRAST 12/28 - [facility] lvis w IV is w IV - Medical contrast contrast CT This report was dictated by a Motor Vehicle Compliance Analyst /Fellow. I have personally reviewed the images [...] Brain/Neck Exam: CTA HEAD AND NECK 12/28 [facility] Stroke Stroke /2018 - Medical perfusion perfusion [...] 1view EXAM: XR CHEST 1 VIEW 12/28 [place] [id number] DX DX /2018 - [facility] This report was dictated by a Motor Vehicle Compliance Analyst/Fellow. I have personally reviewed the images as [...] EXAM: CT BRAIN WITHOUT CONTRAST 12/28 - [facility] Stroke wo wo contrast /2017 - [facility] contrast CT Center CT DATE: 12/28/2017 [...] ischemic change Laboratory Urine pH 6.5 05/16 [facility] [address] Studies /2017 [facility] [place] [facility] Urine 1.0 mg/dL 05/16 [facility] Urobilinogen /2017 [facility] [place] [facility] Urine Total Urine 05/16 [facility] Protein Total /2017 [facility] Protein [place] [facility] Urine 1.015 05/16 [facility] Specific /2017 [facility] [place] [facility] Urine Urine 05/16 [facility] Nitrite Nitrite /2017 [facility] [place] [facility] Urine Urine 05/16 . Studies Leukocyte Leukocyte /2017 [facility] Esterase Esterase [place] [facility] Urine Urine 05/16 [facility] Ketones Ketones /2017 [facility] [place] [facility] Urine Urine 05/16 [facility] Glucose Glucose /2017 [facility] [place] [facility] Urine Color Urine 05/16 [facility] Color /2017 [facility] [place] [facility] Urine Blood Urine 05/16 St[facility] Studies Blood /2017 [facility] [place] [facility] Urine Urine 05/16 [facility] Bilirubin Bilirubin /2017 [facility] [place] [facility] Urine Urine 05/16 [facility] Appearance Appearance /2017 [facility] [place] [facility] Creatine 1.1 ng/ml 0.3 - 4.0 05/16 St[facility] Kinase MB /2017 [facility] [place] [facility] Creatine 61 IU/L 22 - 269 05/16 [facility]. Studies Kinase /2017 [facility] [place] [facility] Troponin I null 05/16 [facility]. Studies /2017 [facility] [place] [facility] Triglyceride 100 mg/dL 35 - 160 05/16 [facility]. Studies s Level /2017 [facility] [place] [facility] LDL 44 05/16 [facility]. Studies Cholesterol, /2017 [facility] Calculated [place] [facility] HDL 22 mg/dL 27 - 67 05/16 [facility]. Studies Cholesterol /2017 [facility] [place] [facility] Cholesterol/ 3.91 05/16 [facility]. Studies HDL Ratio /2017 [facility] [place] [facility] Cholesterol 86 mg/dL 05/16 [facility]. Studies Level /2017 [facility] [place] [facility] White Blood 6.5 K/uL 4.3 - 10.9 05/15 [facility]. Studies Count /2017 [facility] [place] [facility] Red Cell 17.3 % 12.1 - 05/15 [facility]. Studies Distribution 15.2 [facility] Width [place] [facility] Red Blood 4.44 M/uL 4.33 - 05/15 [facility] [place] Studies Count 5.43 /2017 [facility] [place] [facility] Platelet 161 K/uL 152 - 406 05/15 [facility]. Studies Count /2017 [facility] [place] [facility] Neutrophils 58.0 % 41.7 - 05/15 [facility]. Studies % 73.7 /2017 [facility] [place] [facility] Monocytes % 7.4 % 3.3 - 12.3 05/[address] [facility] [address] Studies /2017 [facility] [place] [facility] Mean 9.4 fL 7.6 - 11.3 05/15 [facility]. Studies Platelet /2017 [facility] Volume [place] [facility] Mean 88.3 fL 80 - 100 05/15 [facility] [place] Studies Corpuscular /2017 [facility] Volume [place] [facility] Mean 32.6 g/dL 32.0 - 05/15 [facility]. Studies Corpuscular 36.0 /2017 [facility] Hemoglobin [place] Concent Laboratory Mean 28.8 pg 27.0 - 05/15 [facility]. Studies Corpuscular 35.0 [facility] Hemoglobin [place] [facility] Lymphocytes 31.4 % 15.3 - 05/15 [facility]. Studies % 44.8 /2017 [facility] [place] [facility] Hemoglobin 12.8 g/dL 13.6 - 03 [facility] [address] Studies 17.9 /2017 [facility] [place] [facility] Hematocrit 39.2 % 39.6 - 05/15 [facility] [address] Studies 49.0 /2017 [facility] [place] [facility] Eosinophils 1.8 % 0 - 4.4 05/15 [facility] [address] Studies % /2017 [facility] [place] [facility] Basophils % 1.4 % 0 - 1.3 05/15 [facility] [address] Studies /2018 [facility] [place] [facility] Absolute 3.8 K/uL 1.8 - 8.0 05/15 [facility] [address] Studies Neutrophil /2017 [facility] [place] [facility] Absolute 0.5 K/uL 0.1 - 1.3 05/15 [facility] [address] Studies Monocytes /2017 [facility] (CBC) [place] [facility] Absolute 2.0 K/uL 0.7 - 4.9 05/15 [facility]. Studies Lymphocytes [facility] (CBC) [place] [facility] Absolute 0.1 K/uL 0 - 0.5 05/15 [facility]. Studies Eosinophils /2017 [facility] (CBC) [place] [facility] Absolute 0.1 K/uL 0 - 0.5 05/15 [facility]. Studies Basophils [facility] (CBC) [place] [facility] Total 0.4 mg/dL 0.3 - 1.2 05/15 [facility]. Studies Bilirubin /2017 [facility] [place] [facility] Glucose 135 mg/dL 65 - 120 05/[address] [facility] [address] Studies Level /2017 [facility] [place] [facility] Estimat null 90 05/15 [facility]. Studies Glomerular /2017 [facility] Filtration [place] Rate Laboratory Creatinine 0.82 mg/dL 0.61 - 03 [facility]. Studies 1.24 [facility] [place] [facility] Calcium 8.9 mg/dL 8.5 - 10.5 05/[address] [facility] [address] Studies Level /2017 [facility] [place] [facility] Blood Urea 12 mg/dL 6 - 20 05/[address] [facility] [address] Studies Nitrogen /2017 [facility] [place] [facility] Alkaline 116 IU/L 42 - 121 05/15 [facility] [address] Studies Phosphatase /2017 [facility] [place] [facility] Sodium Level 134 mEq/L 135 - 145 05/15 [facility] [address] Studies /2017 [facility] [place] [facility] Serum Total 6.6 g/dL 6.0 - 8.3 05/15 [facility] [address] Studies Protein /2017 [facility] [place] [facility] Potassium 3.7 mEq/L 3.6 - 5.0 05/15 [facility] [address] Studies Level /2017 [facility] [place] [facility] Globulin 3.0 g/dL 2.3 - 3.5 05/15 St[facility] Studies /2017 [facility] [place] [facility] Chloride 101 mEq/L 101 - 111 05/15 St[facility] Studies Level /2017 [facility] [place] [facility] Carbon 27 mEq/L 21 - 31 05/15 [facility] [address] Studies Dioxide /2017 [facility] Level [place] [facility] Aspartate 18 IU/L 10 - 42 05/15 [facility]. Studies Amino Transf /2017 [facility] (AST/SGOT) [place] Laboratory Albumin/Glob 1.2 1.1 - 1.8 05/15 [facility]. Studies ulin Ratio /2017 [facility] [place] [facility] Albumin 3.6 g/dL 3.2 - 5.5 05/15 [facility] [address] Studies /2017 [facility] [place] [facility] Alanine 13 IU/L 10 - 60 05/15 [facility]. Studies Aminotransfe /2017 [facility] rase [place] (ALT/SGPT) Laboratory B-Type 60 pg/ml 05/15 [facility]. Studies Natriuretic /2017 [facility] Peptide [place] Laboratory Prothrombin 12.6 9.5 - 12.5 05/15 [facility]. Studies Time SECONDS /2017 [facility] [place] [facility] INR 1.07 05/15 [facility]. Studies Internationa /2017 [facility] l Normalized [place] Ratio Laboratory Activated 28.7 24.3 - 05/15 [facility]. Studies Partial SECONDS 36.9 [facility] Thromboplast [place] Time Laboratory Direct 0.1 mg/dL 0 - 0.2 05/15 [facility]. Studies Bilirubin /2017 [facility] [place] [facility] Magnesium 1.8 mg/dL 1.8 - 2.5 05/15 [facility] [address] Studies Level /2017 [facility] [place] [facility] Rapid null 05/15 [facility]. Studies Troponin I /2017 [facility] [place] [facility] Lipase 33 U/L 22 - 51 05/[address] [facility] [address] Studies /2017 [facility] [place] [facility] Urine WBC null 03/[address] [facility] [address] Studies /2018 [facility] [place] [facility] Urine null 03/[address] Studies Squamous [facility] Epithelial [place] Cells Laboratory Urine RBC Urine RBC 03/[address] [facility] Studies [facility] [place] [facility] Urine Urine 03/[address] Studies Culture Culture [facility] Reflexed Reflexed [place] Laboratory Urine null 03/[address] Studies Bacteria [facility] [place] [facility] Bedside 97 mg/dl 65 - 120 03/[address] Studies Glucose [facility] [place] Vital Signs Vital Sign Value Date Comments Source Respitory Rate 18 12/30/2017 [facility] Heart Rate 58 12/30/2017 [facility] Systolic (mm Hg) 118 12/30/2017 [facility] Diastolic (mm Hg) 61 12/30/2017 [facility] Temperature Oral (F) 98.1 F 12/30/2017 [facility] Temperature Oral (F) 97.8 F 12/30/2017 [facility] Heart Rate 60 12/30/2017 [facility] Systolic (mm Hg) 110 12/30/2017 [facility] Diastolic (mm Hg) 58 12/30/2017 [facility] Respitory Rate 18 12/30/2017 [facility] Heart Rate 60 12/30/2017 [facility] Temperature Oral (F) 97.6 F 12/30/2017 [facility] Respitory Rate 18 12/30/2017 [facility] Systolic (mm Hg) 104 12/30/2017 [facility] Diastolic (mm Hg) 53 12/30/2017 [facility] Weight 69.659 12/29/2017 [facility] BMI Calculated 22.68 12/29/2017 [facility] Height 175.26 cm 12/29/2017 [facility] Weight 68.182 12/28/2017 [facility] BMI Calculated 22.2 12/28/2017 [facility] Height 175.26 cm 12/28/2017 [facility] Heart Rate 61 05/16/[address] [facility] [place] Systolic (mm Hg) 105 05/16/[address] [facility] [place] Diastolic (mm Hg) 69 05/16/[address] [facility] [place] Temperature Oral (F) 97.8 F 05/16/[address] [facility] [place] Respitory Rate 18 05/16/[address] [facility] [place] Height 68 05/15/[address] [facility] [place] Weight 155 05/15/[address] [facility] [place] Encounters Location Location Encounter Encounter Reason Attending ADM DC Status Source Details Type Number For Provider Date Date Visit RADHA St. Departed [id number] 03/11 03/11 [facility] [place] [facility] [id number] 05/15 05/[address] [facility] [place] [facility] [id number] [facility]28 [facility] Procedures Procedure Code Date Perfomer Comments Source Head Brain Wo [id number] [facility]. [facility] Cont 8 - [place] Chest For Pe [id number] [facility] Angio 8 - [place] Chest Single View [id number] [facility] 8 - [place] [facility] [place] [facility] 8 - [place] Chest Single View [id number] [facility] kes 8 - [place] [facility] Stroke Brain [id number] [facility] Wo Cont 8 - [place] INTRODUCE OTH [id number] [facility] THROMBOLYTIC IN 8 - [place] PERIPH VEIN, PERC THER/PROPH/DIAG [id number] [facility] INJ IV PUSH 8 - [place]
--- OUTSIDE RECORDS SUMMARY | 2018-08-18 11:14 | XMS REPORT | Summary of Care ---
:1950 Author Organization [facility] Address [address] [place] [id number] Encounter HQ Felizr_rebecca(FIN) [phone] Date(s): 12/28/17 - 12/30/[address] Professional Services provided by [facility] [place] [address]- Encounter Diagnosis Syncope and collapse (Final) - 01/04/18 Other chest pain (Final) - Unspecified atrial fibrillation (Final) - Essential (primary) hypertension (Final) - Atherosclerotic heart disease of [place] coronary artery without angina pectoris (Final) - Major depressive disorder, single episode, unspecified (Final) - Personal history of transient ischemic attack (TIA), and cerebral infarction without residual deficits (Final) - Peripheral vascular disease, unspecified (Final) - Old myocardial infarction (Final) - Presence of coronary angioplasty implant and graft (Final) - Personal history of other malignant neoplasm of skin (Final) - Nicotine dependence, cigarettes, uncomplicated (Final) - Presence of cardiac pacemaker (Final) - Other fpc (current) drug therapy (Final) - 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) - 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 of antithrombotics/antiplatelets (Final) - Discharge Disposition: Home or Self Care Attending Physician: Divina Nowak MD Admitting Physician: Divina Nowak MD Vital Signs Most recent to oldest 1 2 3 [Reference Range]: Height 175.26 cm 175.26 cm (12/28/17 9:05 PM) (12/28/17 1:05 PM) Current Weight 68.182 kg (12/29/17 9:00 AM) Temperature Oral [96.4-99.1 98.1 DegF 97.8 DegF 97.6 DegF DegF] (12/30/17 8:11 AM) (12/30/17 2:40 AM) (12/29/17 7:29 PM) Blood Pressure [90-140/60-90 118/61 mmHg 110/58 mmHg 104/53 mmHg mmHg] (12/30/17 8:11 AM) (12/30/17 2:40 AM) (12/29/17 7:29 PM) Respiratory Rate [14-20 18 BRMIN 18 BRMIN 18 BRMIN BRMIN] (12/30/17 8:11 AM) (12/30/17 2:40 AM) (12/29/17 7:29 PM) Peripheral Pulse Rate 58 bpm 60 bpm 60 bpm [60-100 bpm] *LOW* (12/30/17 2:40 AM) (12/29/17 7:29 PM) (12/30/17 8:11 AM) Weight 69.659 kg 68.182 kg (12/28/17 9:05 PM) (12/28/17 1:05 PM) Body Mass Index 22.68 m2 22.2 m2 (12/28/17 9:05 PM) (12/28/17 1:05 PM) Problem List No data available for this section Allergies, Adverse Reactions, Alerts No Known Medication Allergies Medications aspirin 81 mg, 1 tab, Route: PO, Drug form: ECTAB, Daily, Dosing Weight 68.182, kg, Start date: 12/29/17 9:00:00 CDT, Duration: 30 day, Stop date: 01/27/18 9:00:00 PRIVATE CHEF Notes: Do not crush or chew.(Same As: Ecotrin) Start Date: 12/29/17 Stop Date: 12/30/17 Status: Discontinuedaspirin 81 mg, PO, Daily, 0 Refill(s) Start Date: 12/28/17 Status: Orderedatorvastatin 40 mg, 1 tab, Route: PO, Drug form: TAB, Daily, Dosing Weight 68.182, kg, Start date: 12/29/17 9:00:00 CDT, Duration: 30 day, Stop date: 01/27/18 9:00:00 PRIVATE CHEF Notes: (Same as: Lipitor) Start Date: 12/29/17 Stop Date: 12/30/17 Status: Discontinuedatorvastatin 40 mg oral tablet 40 mg=1 tab, PO, Daily, 0 Refill(s) Start Date: 12/28/17 Stop Date: 12/28/17 Status: Discontinuedatorvastatin 80 mg oral tablet 80 mg=1 tab, PO, Bedtime Start Date: 12/28/17 Status: OrderedbusPIRone 15 mg, 3 tab, Route: PO, Drug form: TAB, BID, Dosing Weight 68.182, kg, Start date: 12/29/17 9:00:00CDT, Duration: 30 day, Stop date: 01/27/18 17:00:00 PRIVATE CHEF Notes: (Same As: BuSpar) Start Date: 12/29/17 Stop Date: 12/30/17 Status: DiscontinuedbusPIRone 15 mg oral tablet 15 mg=1 tab, PO, BID, 0 Refill(s) Start Date: 12/28/17 Status: Ordereddocusate 100 mg, 1 cap, Route: PO, Drug form: CAP, BID, Dosing Weight 68.182, kg, Start date: 12/29/17 9:00:00 CDT, Duration: 30 day, Stop date: 01/27/18 17:00:00 PRIVATE CHEF Notes: (Same as: Colace) (Do Not Crush) Start Date: 12/29/17 Stop Date: 12/30/17 Status: DiscontinuedEliquis 5 mg, 1 tab, Route: PO, Drug form: TAB, BID, Dosing Weight 68.182, kg, Start date: 12/29/17 9:00:00 CDT, Duration: 30 day, Stop date: 01/27/18 17:00:00 PRIVATE CHEF Notes: Same as: Eliquis Start Date: 12/29/17 Stop Date: 12/29/17 Status: Discontinuedheparin 5,000 unit, 1 mL, Route: SUB-Q, Drug form: INJ, Q8H, Dosing Weight 69.659, kg, Start date: 12/30/17 0:00:00 CDT, Duration: 30 day, Stop date: 01/28/18 16:00: 00 PRIVATE CHEF Notes: porcine heparin Start Date: 12/30/17 Stop Date: 12/30/17 Status: Discontinuedhydrochlorothiazide 25 mg, 1 tab, Route: PO, Drug form: TAB, Daily, Dosing Weight 68.182, kg, Start date: 12/29/17 9:00:00 CDT, Duration: 30 day, Stop date: 01/27/18 9:00:00 PRIVATE CHEF Notes: (Same as: Hydrodiuril) With food. Start Date: 12/29/17 Stop Date: 12/29/17 Status: Canceledhydrochlorothiazide 25 mg, PO, Daily, 0 Refill(s) Start Date: 12/28/17 Stop Date: 12/28/17 Status: Discontinuedhydrochlorothiazide-losartan 25 mg-100 mg oral tablet 1 tab, PO, Daily Start Date: 12/28/17 Stop Date: 12/30/17 Status: DiscontinuedIsolyte S PH-7.4 (Bolus) IV 500 mL, Route: IV, ONCE, Dosing Weight 68.182 kg, Start date: 12/28/17 13:44:00 CDT, Stop date: 12/28/17 13:44:00 CDT Start Date: 12/28/17 Stop Date: 12/28/17 Status: CompletedLactated Ringers (Bolus) IV 1,000 mL, 1,000 ml/hr, Infuse Over: 1 hr, Route: IV, 1,000, Drug form: INJ, ONCE , Priority: STAT, Dosing Weight 69.659 kg, Start date: 12/29/17 16:42:00 CDT, Stop date: 12/29/17 16:42:00 CDT Start Date: 12/29/17 Stop Date: 12/29/17 Status: Completedlosartan 25 mg, 1 tab, Route: PO, Drug form: TAB, Daily, Dosing Weight 68.182, kg, Start date: 12/29/17 9:00:00 CDT, Duration: 30 day, Stop date: 01/27/18 9:00:00 PRIVATE CHEF Notes: (Same as: Cozaar) Start Date: 12/29/17 Stop Date: 12/29/17 Status: Discontinuedlosartan 100 mg oral tablet 100 mg=1 tab, PO, Daily, 0 Refill(s) Start Date: 12/28/17 Stop Date: 12/28/17 Status: Discontinuedmetoclopramide 10 mg, Route: IVP, Drug form: INJ, ONCE, Dosing Weight 68.182, kg, Priority: STAT, Start date: 12/28/17 13:38:00 CDT, Stop date: 12/28/17 13:38:00 CDT Start Date: 12/28/17 Stop Date: 12/28/17 Status: Completedmetoprolol tartrate 25 mg, 1 tab, Route: PO, Drug form: TAB, BID, Dosing Weight 68.182, kg, Start date: 12/29/17 9:00:00CDT, Duration: 30 day, Stop date: 01/27/18 17:00:00 PRIVATE CHEF Notes: (Same as: Lopressor) Start Date: 12/29/17 Stop Date: 12/30/17 Status: Discontinuedmetoprolol tartrate 25 mg oral tablet 25 mg=1 tab, PO, BID, # 60 tab, 1 Refill(s) Start Date: 12/30/17 Status: Orderedmorphine Sulfate 4 mg, Route: IVP, ONCE, Dosing Weight 68.182, kg, Priority: STAT, Start date: 13:44:00 CDT,Stop date: 12/28/17 13:44:00 CDT Start Date: 12/28/17 Stop Date: 12/28/17 Status: Completednormal saline 0.9% IV 1,000 mL 1,000 mL, Rate: 100 ml/hr, Infuse over: 10 hr, Route: IV, Dosing Weight 68.182 kg, Total Volume: 1,000, Priority: STAT, Start date: 12/28/17 18:15:00 CDT, Duration: 1 doses or times, Stop date: 12/29/17 4:14:00 CDT, 1.83, m2 Start Date: 12/28/17 Stop Date: 12/28/17 Status: Completedpantoprazole 40 mg, 1 tab, Route: PO, Drug form: ECTAB, Daily, Dosing Weight 68.182, kg, Start date: 12/29/17 9:00:00 CDT, Duration: 30 day, Stop date: 01/27/18 9:00:00 PRIVATE CHEF Notes: Tablet should not be chewed or crushed.(Same as: Protonix) Start Date: 12/29/17 Stop Date: 12/30/17 Status: Discontinuedpantoprazole 40 mg oral enteric coated tablet 40 mg=1 tab, PO, Daily, 0 Refill(s) Start Date: 12/28/17 Status: OrderedPlavix 75 mg, 1 tab, Route: PO, Drug form: TAB, Daily, Dosing Weight 68.182, kg, Start date: 12/29/17 9:00:00 CDT, Duration: 30 day, Stop date: 01/27/18 9:00:00 PRIVATE CHEF Notes: (Same As: Plavix) Start Date: 12/29/17 Stop Date: 12/30/17 Status: DiscontinuedPlavix 75 mg oral tablet 75 mg=1 tab, PO, Daily, 0 Refill(s) Start Date: 12/28/17 Status: OrderedSaline Flush 0.9% 10 mL, Route: MISC, Drug Form: INJ, kg, PRN, PRN Line Flush, Start date: 13:09:00 CDT, Duration: 30 day, Stop date: 01/27/18 12:08:00 PRIVATE CHEF Notes: (Same as: BD Posiflush) Start Date: 12/28/17 Stop Date: 12/30/17 Status: DiscontinuedSaline Flush 0.9% 10 mL, Route: IVP, Drug Form: INJ, kg, PRN, PRN Line Flush, Start date: 13:06:00 CDT, Duration: 30 day, Stop date: 01/27/18 12:05:00 PRIVATE CHEF Notes: (Same as: BD Posiflush) Start Date: 12/28/17 Stop Date: 12/28/17 Status: DiscontinuedVisipaque 320mg/ml 100 mL, Route: IVP, Drug Form: SOLN, Dosing Weight 68.182, kg, ONCALL, STAT, Start date: 12/28/17 15:44:00 CDT, Duration: 1 doses or times, Dose=2.2ml/kg, Max suvj=[id number] -- "To be infused by RadiologyStaff ONLY" Start Date: 12/28/17 Stop Date: 12/28/17 Status: Completed Results Most recent to oldest 1 2 3 [Reference Range]: Neutrophils # [1.5-8.1 4.1 K/CMM 11.1 K/CMM K/CMM] (12/29/17 5:52 AM) *HI* (12/28/17 1:34 PM) Lymphocytes # [1.0-5.5 1.3 K/CMM 1.5 K/CMM K/CMM] (12/29/17 5:52 AM) (12/28/17 1:34 PM) Monocytes # [0.0-0.8 K/CMM] 0.7 K/CMM 0.6 K/CMM (12/29/17 5:52 AM) (12/28/17 1:34 PM) Eosinophils # [0.0-0.5 0.1 K/CMM 0.1 K/CMM K/CMM] (12/29/17 5:52 AM) (12/28/17 1:34 PM) Basophils # [0.0-0.2 K/CMM] 0.1 K/CMM 0.2 K/CMM (12/29/17 5:52 AM) (12/28/17 1:34 PM) Bili Indirect [0.0-1.0 0.5 mg/dL mg/dL] (12/28/17 1:34 PM) eGFR 96 mL/min/1.73m2 1 91 mL/min/1.73m2 2 69 mL/min/1.73m2 3 *NA* *NA* *NA* (12/30/17 2:14 AM) (12/29/17 2:38 AM) (12/28/17 1:56 PM) A/G Ratio [0.7-1.6] 0.8 (12/28/17 1:34 PM) Albumin Lvl [3.5-5.0 g/dL] 4.4 g/dL (12/28/17 1:34 PM) Alk Phos [39-136 unit/L] 161 unit/L *HI* (12/28/17 1:34 PM) ALT [0-65 unit/L] 23 unit/L (12/28/17 1:34 PM) AGAP [10.0-20.0 mEq/L] 11.9 mEq/L 13.6 mEq/L 17.3 mEq/L (12/30/17 2:14 AM) (12/29/17 2:38 AM) (12/28/17 1:34 PM) AST [0-37 unit/L] 23 unit/L (12/28/17 1:34 PM) Basophils [0.0-1.0 %] 1.3 % 1.5 % *HI* *HI* (12/29/17 5:52 AM) (12/28/17 1:34 PM) BUN [7-22 mg/dL] 17 mg/dL 17 mg/dL 18 mg/dL (12/30/17 2:14 AM) (12/29/17 2:38 AM) (12/28/17 1:34 PM) Calcium Lvl [8.5-10.5 mg/dL] 7.6 mg/dL 7.2 mg/dL 9.9 mg/dL *LOW* *LOW* (12/28/17 1:34 PM) (12/30/17 2:14 AM) (12/29/17 2:38 AM) CHD Risk [4.00-7.30] 4.55 (12/28/17 7:27 PM) Chol [<=199 mg/dL] 150 mg/dL (12/28/17 7:27 PM) Total CK [12-191 unit/L] 105 unit/L (12/28/17 1:34 PM) Chloride Lvl [95-109 mEq/L] 108 mEq/L 108 mEq/L 93 mEq/L (12/30/17 2:14 AM) (12/29/17 2:38 AM) *LOW* (12/28/17 1:34 PM) CO2 [24-32 mEq/L] 24 mEq/L 19 mEq/L 26 mEq/L (12/30/17 2:14 AM) *LOW* (12/28/17 1:34 PM) (12/29/17 2:38 AM) Creatinine Lvl [0.50-1.40 0.72 mg/dL 0.81 mg/dL 0.99 mg/dL mg/dL] (12/30/17 2:14 AM) (12/29/17 2:38 AM) (12/28/17 1:34 PM) Bili Direct [0.0-0.3 mg/dL] 0.1 mg/dL (12/28/17 1:34 PM) Eosinophils [0.0-4.0 %] 1.9 % 0.9 % (12/29/17 5:52 AM) (12/28/17 1:34 PM) Globulin [2.7-4.2 g/dL] 5.2 g/dL *HI* (12/28/17 1:34 PM) Glucose Lvl [70-99 mg/dL] 79 mg/dL 82 mg/dL 133 mg/dL (12/30/17 2:14 AM) (12/29/17 2:38 AM) *HI* (12/28/17 1:34 PM) Hct [42.0-54.0 %] 28.5 % 31.8 % 40.9 % *LOW* *LOW* *LOW* (12/30/17 2:14 AM) (12/29/17 5:52 AM) (12/28/17 1:34 PM) HDL [>=61 mg/dL] 33 mg/dL *LOW* (12/28/17 7:27 PM) Hgb [14.0-18.0 g/dL] 9.4 g/dL 10.4 g/dL 13.5 g/dL *LOW* *LOW* *LOW* (12/30/17 2:14 AM) (12/29/17 5:52 AM) (12/28/17 1:34 PM) Hgb A1C [<=5.6 %] 6.0 % *HI* (12/28/17 7:27 PM) INR [0.85-1.17] 1.00 (12/28/17 1:34 PM) Potassium Lvl [3.5-5.1 3.9 mEq/L 3.6 mEq/L 4.3 mEq/L mEq/L] (12/30/17 2:14 AM) (12/29/17 2:38 AM) (12/28/17 1:34 PM) Lactic Acid Lvl [0.5-2.2 1.5 mMol/L 1.3 mMol/L mMol/L] (12/28/17 9:35 PM) (12/28/17 7:27 PM) LDL (Calculated) [<=99 99 mg/dL mg/dL] (12/28/17 7:27 PM) Lipase Lvl [73-393 unit/L] 202 unit/L (12/28/17 1:34 PM) Lymphocytes [20.0-40.0 %] 20.5 % 11.4 % (12/29/17 5:52 AM) *LOW* (12/28/17:34 PM) MCH [27.0-31.0 pg] 27.6 pg 27.3 pg 27.5 pg (12/30/17 2:14 AM) (12/29/17 5:52 AM) (12/28/17 1:34 PM) MCHC [32.0-36.0 g/dL] 32.9 g/dL 32.6 g/dL 33.0 g/dL (12/30/17 2:14 AM) (12/29/17 5:52 AM) (12/28/17 1:34 PM) MCV [80.0-94.0 fL] 84.1 fL 83.7 fL 83.4 fL (12/30/17 2:14 AM) (12/29/17 5:52 AM) (12/28/17 1:34 PM) Monocytes [2.0-12.0 %] 11.0 % 4.4 % (12/29/17 5:52 AM) (12/28/17 1:34 PM) MPV [7.4-10.4 fL] 8.5 fL 8.7 fL 8.5 fL (12/30/17 2:14 AM) (12/29/17 5:52 AM) (12/28/17:34 PM) Sodium Lvl [135-145 mEq/L] 140 mEq/L 137 mEq/L 132 mEq/L (12/30/17 2:14 AM) (12/29/17 2:38 AM) *LOW* (12/28/17:34 PM) Platelet [133-450 K/CMM] 136 K/CMM 167 K/CMM 216 K/CMM (12/30/17 2:14 AM) (12/29/17 5:52 AM) (12/28/17 1:34 PM) Segs [45.0-75.0 %] 65.3 % 81.8 % (12/29/17 5:52 AM) *HI* (12/28/17:34 PM) Total Protein [6.4-8.4 g/dL] 9.6 g/dL *HI* (12/28/17:34 PM) PT [12.0-14.7 seconds] 13.2 seconds (12/28/17 1:34 PM) PTT [22.9-35.8 seconds] 31.5 seconds (12/28/17 1:34 PM) RBC [4.70-6.10 M/CMM] 3.39 M/CMM 3.80 M/CMM 4.91 M/CMM *LOW* *LOW* (12/28/17 1:34 PM) (12/30/17 2:14 AM) (12/29/17 5:52 AM) RDW [11.5-14.5 %] 17.9 % 17.7 % 18.2 % *HI* *HI* *HI* (12/30/17 2:14 AM) (12/29/17 5:52 AM) (12/28/17 1:34 PM) Bili Total [0.2-1.3 mg/dL] 0.6 mg/dL (12/28/17 1:34 PM) Trig [<=149 mg/dL] 89 mg/dL (12/28/17 7:27 PM) Troponin-I [0.00-0.40 ng/mL] <0.02 ng/mL <0.02 ng/mL <0.02 ng/mL (12/29/17 6:19 PM) (12/29/17 12:36 PM) (12/29/17 2:38 AM) UA Bacteria [None Seen] None Seen (12/28/17 7:27 PM) UA Bili [Negative] Negative *NA* (12/28/17 7:27 PM) UA Blood [Negative] Negative (12/28/17 7:27 PM) UA Color [Yellow] Yellow *NA* (12/28/17 7:27 PM) UA Glucose [Negative] Negative (12/28/17 7:27 PM) UA Ketones [Negative] Negative *NA* (12/28/17 7:27 PM) UA Leuk Est [Negative] Negative (12/28/17 7:27 PM) UA Nitrite [Negative] Negative (12/28/17 7:27 PM) UA pH [5.0-8.0] 7.0 (12/28/17 7:27 PM) UA Protein [Negative] Negative (12/28/17 7:27 PM) UA RBC [0-2] None Seen (12/28/17 7:27 PM) UA Spec Grav [<=1.030] <=1.005 *NA* (12/28/17 7:27 PM) UA Sq Epi [Few /LPF] Rare /LPF (12/28/17 7:27 PM) UA Turbidity [Clear] Clear (12/28/17 7:27 PM) UA Urobilinogen [0.1-1.0 0.2 EU/dL EU/dL] (12/28/17 7:27 PM) UA WBC [None Seen] None Seen (12/28/17 7:27 PM) WBC [3.7-10.4 K/CMM] 5.4 K/CMM 6.2 K/CMM 13.5 K/CMM (12/30/17 2:14 AM) (12/29/17 5:52 AM) *HI* (12/28/17 1:34 PM) POC Creatinine [0.5-1.4 0.7 mg/dL mg/dL] (12/28/17 1:56 PM) Micro? Performed (12/28/17 7:27 PM) Lactic Acid WB [0.5-2.2 2.5 mmol/L mmol/L] *HI* (12/28/17 1:34 PM) VLDL 18 *NA* (12/28/17 7:27 PM) 1Result Comment: The eGFR is calculated using the CKD-EPI formula. In most young , healthy individualsthe eGFR will be >90 mL/min/1.73m2. The eGFR declines with age. An eGFR of 60-89 may be normal insome populations, particularly the elderly, for whom the CKD-EPI formula has not been extensively validated. Use of the eGFR is not recommended in the following populations: Individuals with unstable creatinine concentrations, including patients and those with serious co-morbid conditions. Patients with extremes in muscle mass or diet. The data above are obtained from the National Kidney Disease Education Program ( NKDEP) which additionally recommends that when the eGFR is used in patients with extremes of body mass index for purposesof drug dosing, the eGFR should be multiplied by the estimated BMI.2Result Comment: The eGFR is calculated using the CKD-EPI formula. In most young, healthy individualsthe eGFR will be >90 mL/min/1.73m2. The eGFR declines with age. An eGFR of 60-89 may be normal insome populations, particularly the elderly, for whom the CKD-EPI formula has not been extensively validated. Use of the eGFR is not recommended in the following populations: Individuals with unstable creatinine concentrations, including patients and those with serious co-morbid conditions. Patients with extremes in muscle mass or diet. The data above are obtained from the National Kidney Disease Education Program ( NKDEP) which additionally recommends that when the eGFR is used in patients with extremes of body mass index for purposesof drug dosing, the eGFR should be multiplied by the estimated BMI.3Result Comment: The eGFR is calculated using the CKD-EPI formula. In most young, healthy individualsthe eGFR will be >90 mL/min/1.73m2. The eGFR declines with age. An eGFR of 60-89 may be normal insome populations, particularly the elderly, for whom the CKD-EPI formula has not been extensively validated. Use of the eGFR is not recommended in the following populations: Individuals with unstable creatinine concentrations, including patients and those with serious co-morbid conditions. Patients with extremes in muscle mass or diet. The data above are obtained from the National Kidney Disease Education Program ( NKDEP) which additionally recommends that when the eGFR is used in patients with extremes of body mass index for purposesof drug dosing, the eGFR should be multiplied by the estimated BMI. Immunizations Given and Recorded Vaccine Date Status Refusal Reason pneumococcal 23-valent vaccine 10/21/07 Given Procedures No data available for this section Social History Social History Type Response Alcohol Previous treatment: None. Smoking Status Current every day smoker; Type: Cigarettes; Exposure to Tobacco Smoke None; Cigarette Smoking Last 365 Days Yes; Reg Smoking Cessation Counseling Yes entered on: 12/28/17 Assessment and Plan Extracted from: Title: Progress Note Author: Divina Nowak MD Date: 12/29/17 67 yo with pmh afib, cva, cad, pad, htn admitted for evaluation of chest pain and lightheadedness. 1.Pre-syncope(R55) suspect possible orthostatic hypotension. LR bolus today and hold anti-htn. cont telemetry monitoring. mri cannot be done given that his pacemaker not mri compatible to assess for cva though ct unremarkable. 2.Acute chest pain(R07.9) ekg unchanged. trend troponin and telemetry monitoring. Ordered: Admit/Condition, 12/28/17 17:52:00 CDT, Status: Out Patient with Observation Services, Telemetry Capable Location, Location: [facility] tele, Expected LOS: 1 Midnight, Divina Nowak MD, Admit MD Review/Approve Yes 3.A-fib(I48.91) metoprolol. d/c apixaban. defer anticoagulation to op making machine catcher. 4.HTN (hypertension)(I10) hold losartan and hctz. 5.Tobacco abuse(Z72.0) psychotherapist counselor on smoking cessation. 6.Coronary artery disease(I25.10) resume asa, atorvastatin, plavix and metoprolol. holding acei given hypotension. 7.Depression(F32.9) buspar heparin. pending pt/ot evaluation. Extracted from: Title: H and P Author: Alejandro Matias DO Date: 12/28/17 CC: Chest pain, vomiting HPI: 67yo male with pmhx listed below presents with chest pain and vomiting. Patient suddenly felt lightheaded and was going to pass out. He called for his son who grabbed him and put him on the ground. EMS was called. En route, patient vomited and complained of substernal CP. Son noticed that his speech was off and he had a slight facial droop on the right. On my eval, patient complains of 4/10 charp substernal CP. No recent fevers, chills, abdominal pain, diarrhea, back pain. Of note, patient was visiting his cardiology today who diagnosed him with A-fib after interrogating his pacemaker. Was star jw on Metoprolol ER, dose unclear. No discussion about AC. ROS: All systems reviewed were negative with the exception of the ones in the HPI PMHx: CVA, CAD s/p PCI 10 years ago, PAD, skin cancer, HTN Surgical Hx: Lower extremity bypass, pacemaker placement, cholecystectomy Social:Smokes 2-3 cigarettes per day. Smoking for 50 years Family hx: mom: ovarian cancer Medications: Reviewed. See med rec. Physical exam: Vitals reviewed Gen: No distress HEENT: dry mm Cardiac: RRR. No murmurs Resp: CTA Abd: Positive bowel sounds. No tenderness MSK: No LE edema Neuro: Alert and oriented. Equal strength upper and LE. No focal deficits. No facial droop. CN intact to testing. Skin: no rash Labs and imaging reviewed. Assessment: 1. Pre-syncope: etiology could be orthostatic hypotension vs a-fib vs ischemic stroke 2. Atypical chest pain-substernal, but sharp in character. EKG and trop normal. I don't suspect ACS right now 3. A-fib-newly diagnosed by making machine catcher today. [id number] of 5 4. Hx of CAD-stable 5. PAD 6. Hx of CVA 7. HTN 8. Tobacco abuse Plan -admit to obs unit -trend troponin to rule out ACS -IVF hydration.Please check orthostatics prior to fluids -check TSH -start eliquis for A-fib -Need to rule out ischemic infarct in brain given history. Will require MRI brain -Continue plavix, statin, aspirin, and home anti hypertensives -DVT proph: eliquis -Diet: heart healthy Patient and family indicated understanding and agreed with plan of care. Extracted from: Title: Consult Note Author: Florencia Up [employer]CH[employer] Date: 12/28/17 67 yo man with multiple vascular risk factors pw BERNABE, Chest Pain, Nausea and vomiting. Son thought he might have been weaker than normal on the R. Patient has no drift, is purposefully using his R si de, and does not have a facial droop on exam. Patient denies feeling worsening weakness on R, does report generalized weakness and feeling ill. Neuroimaging without obvious signs of ischemia, hemo rrhage, LVO, or flow limiting stenosis, however there is a hyperdense spot in area of R M2 that should be futher evaluated. Recommend getting CTA H&N with perfusionASAP and stroke will follow. No further recommendations/work-up at this time but will finalize pending vessel imaging. Permissive HTN for now < 220. Continue his plavix and statin. Case was discussed with Dr. Martinez and Dr. Meléndez. Thank you for allowing us to participate in this patient's care. ROSALINA Briceño- Stroke Team [employer] consult pager [phone] Addendum by Julius Maciel MD on 12/28/2017 18:30 CDT Vessel images was reviewed, which is unremarkable. Defer chest pain work-up for emergency department.
--- OUTSIDE RECORDS SUMMARY | 2018-08-18 11:15 | XMS REPORT ---
:1950 Demographics Address [address] , Preferred Language Unknown Marital Status Unknown Zoroastrian Affiliation Unknown Race Unknown Ethnic Group Unknown [facility] Address [address] [place] [address] Care Team Providers Name Role Phone VANDANA [...] Value Reference Range Comments MAGNESIUM (BEAKER) (test bcgl=895) 1.9 mg/dL 1.6-2.6 BASIC METABOLIC [id number] 05:42:00 Test Item Value Reference Range Comments SODIUM (BEAKER) (test 136 meq/L 136-145 wolg=159) POTASSIUM (BEAKER) (test 3.8 meq/L 3.5-5.1 rjgh=145) CHLORIDE (BEAKER) (test 107 meq/L 98-107 gkqy=159) CO2 (BEAKER) (test 24 meq/L 22-29 pmjz=558) BLOOD UREA NITROGEN 14 mg/dL 7-21 (BEAKER) (test wepw=375) CREATININE (BEAKER) (test 0.84 mg/dL 0.57-1.25 ekng=659) GLUCOSE RANDOM (BEAKER) 113 mg/dL 70-105 (test pkab=607) CALCIUM (BEAKER) (test 8.1 mg/dL 8.4-10.2 qxmt=619) EGFR (BEAKER) (test 91 mL/min/1.73 sq m ESTIMATED GFR IS NOT urpr=8490) ACCURATE CREATININE CLEARANCE IN PREDICTING GLOMERULAR FILTRATION RATE. ESTIMATED GFR IS NOT APPLICABLE FOR DIALYSIS PATIENTS. CBC W/PLT COUNT & AUTO [id number] 04:43:00 Test Item Value Reference Range Comments WHITE BLOOD CELL COUNT (BEAKER) (test dhdh=248) 4.7 K/ L 3.5-10.5 RED BLOOD CELL COUNT (BEAKER) (test fwrd=852) 3.54 M/ L 4.63-6.08 HEMOGLOBIN (BEAKER) (test zcsq=811) 8.8 GM/DL 13.7-17.5 HEMATOCRIT (BEAKER) (test ltgs=040) 28.9 % 40.1-51.0 MEAN CORPUSCULAR VOLUME (BEAKER) (test vawy=106) 81.6 fL 79.0-92.2 MEAN CORPUSCULAR HEMOGLOBIN (BEAKER) (test 24.9 pg 25.7-32.2 xcae=676) MEAN CORPUSCULAR HEMOGLOBIN CONC (BEAKER) (test 30.4 GM/DL 32.3-36.5 peur=140) RED CELL DISTRIBUTION WIDTH (BEAKER) (test 18.3 % 11.6-14.4 wyco=742) PLATELET COUNT (BEAKER) (test qxlk=385) 156 K/CU MM 150-450 MEAN PLATELET VOLUME (BEAKER) (test igtb=546) 11.0 fL 9.4-12.4 NUCLEATED RED BLOOD CELLS (BEAKER) (test 0 /100 WBC 0-0 rctr=035) NEUTROPHILS RELATIVE PERCENT (BEAKER) (test 55 % vpvj=690) LYMPHOCYTES RELATIVE PERCENT (BEAKER) (test 29 % ogge=119) MONOCYTES RELATIVE PERCENT (BEAKER) (test 11 % mnij=158) EOSINOPHILS RELATIVE PERCENT (BEAKER) (test 3 % fsnp=468) BASOPHILS RELATIVE PERCENT (BEAKER) (test 2 % bcqs=024) NEUTROPHILS ABSOLUTE COUNT (BEAKER) (test 2.59 K/ L 1.78-5.38 cohe=502) LYMPHOCYTES ABSOLUTE COUNT (BEAKER) (test 1.34 K/ L 1.32-3.57 raxs=572) MONOCYTES ABSOLUTE COUNT (BEAKER) (test 0.51 K/ L 0.30-0.82 bbqw=894) EOSINOPHILS ABSOLUTE COUNT (BEAKER) (test 0.15 K/ L 0.04-0.54 izly=645) BASOPHILS ABSOLUTE COUNT (BEAKER) (test 0.07 K/ L 0.01-0.08 jbuo=522) IMMATURE GRANULOCYTES-RELATIVE PERCENT (BEAKER) 1 % 0-1 (test owmo=2480) [id number] 19:48:00 Test Item Value Reference Range Comments ACTIVATED CLOTTING TIME [address] [facility] [address]) (test mlfo=173) [facility] [address] [id number] 09:20:00 Test Item Value Reference Range Comments PARTIAL THROMBOPLASTIN TIME (BEAKER) (test 76.2 seconds 22.5-36.0 kfta=802) CREATINE KINASE (CK)2018-04-08 07:02:00 Test Item Value Reference Range Comments CREATINE KINASE TOTAL (BEAKER) (test pvrj=115) 74 U/L 29-200 LACTIC ACID, VENOUS, WHOLE [id number] 06:56:00 Test Item Value Reference Range Comments LACTATE BLOOD VENOUS (2) (BEAKER) (test 1.1 mmol/L 0.5-2.2 lett=6099) NERVE CONDUCTION STUDIES; 3-4 [id number] 06:53:00Select Extremity-> Right Leg Reason for exam:->[facility] SacramentoNeurophysiology DepartmentELECTROMYOGRAPHY / NERVE CONDUCTION STUDY [address] [facility] [address] [place] [address] Name: Mami Pena : Date of : 1950 Gender: Male Date of Exam: 04/07/2018 4:30 PMReferring Physician: Carole Cohenxamindusty Physician: Melody Benavidez Patient History: Patient presents [...] ConductionVelocitySural.RLower leg 2.9 ms 3.7 ms 12 ጗V Ankle-Lower leg 2.9 ms 140 mm 48 [...] right lower limb. ____Melody Benavidez M.D. 06:53 [id number] 03:03:00 Test Item Value Reference Range Comments PARTIAL THROMBOPLASTIN TIME (BEAKER) (test 82.1 seconds 22.5-36.0 nbic=367) CT, CTA AAA, W/ SAMMY.EXT.[id number] 16:54:00Addendum BeginsREPORT STATUS:A Addendum: I agree with the previously described non vascular findings. Signed: Angel Payne MDReport Verified Date/Time: 2018 16:54:33 Reading Location: [place] [id number] Angio Body Reading RoomAddendum EndsFINAL REPORT CT [...] dictated regarding the non-vascular findings by the Weapons Officer Radiologist. Signed: Steve Musa MDReport Verified Date/Time: 04/07/2018 15:32:19 Reading Location: [place] [address] Cardiology MRI TROPONIN [id number] 11:39:00 Test Item Value Reference Range Comments TROPONIN I (BEAKER) (test aede=432) < ng/mL 0.00-0.03 Troponin I (TnI) levels [...] acute neurological disease, and persistent tachyarrhythmia.BASIC METABOLIC [id number] 16:14:00 Test Item Value Reference Range Comments SODIUM (BEAKER) (test 133 meq/L 136-145 gqdg=941) POTASSIUM (BEAKER) (test 3.9 meq/L 3.5-5.1 brvv=981) CHLORIDE (BEAKER) (test 99 meq/L 98-107 kchv=994) CO2 (BEAKER) (test 23 meq/L 22-29 vody=723) BLOOD UREA NITROGEN 14 mg/dL 7-21 (BEAKER) (test jqay=271) CREATININE (BEAKER) (test 1.02 mg/dL 0.57-1.25 lukp=723) GLUCOSE RANDOM (BEAKER) 102 mg/dL 70-105 (test sufv=604) CALCIUM (BEAKER) (test 9.7 mg/dL 8.4-10.2 iwog=391) EGFR (BEAKER) (test 72 mL/min/1.73 sq m ESTIMATED GFR IS NOT miuz=4693) ACCURATE CREATININE CLEARANCE IN PREDICTING GLOMERULAR FILTRATION RATE. ESTIMATED GFR IS NOT APPLICABLE FOR DIALYSIS PATIENTS. PT/[id number] 16:05:00 Test Item Value Reference Range Comments PROTIME (BEAKER) (test wvsr=891) 13.8 seconds 11.7-14.7 INR (BEAKER) (test jeds=068) 1.1 <=5.9 PARTIAL THROMBOPLASTIN TIME (BEAKER) (test 31.6 seconds 22.5-36.0 dlkz=670) RECOMMENDED COUMADIN/WARFARIN INR THERAPY RANGESSTANDARD DOSE: 2.0 - 3.0 Includes: PROPHYLAXIS forvenous thrombosis, systemic embolization; TREATMENT for venous thrombosis and/or pulmonary embolus.HIGH RISK: Target INR is 2.5-3.5 for patients with mechanical heart valves.CBC W/PLT COUNT & AUTO [id number] 15:56:00 Test Item Value Reference Range Comments WHITE BLOOD CELL COUNT (BEAKER) (test wyix=296) 9.2 K/ L 3.5-10.5 RED BLOOD CELL COUNT (BEAKER) (test eeol=169) 4.75 M/ L 4.63-6.08 HEMOGLOBIN (BEAKER) (test dibe=108) 11.8 GM/DL 13.7-17.5 HEMATOCRIT (BEAKER) (test qvxq=151) 38.8 % 40.1-51.0 MEAN CORPUSCULAR VOLUME (BEAKER) (test tkke=947) 81.7 fL 79.0-92.2 MEAN CORPUSCULAR HEMOGLOBIN (BEAKER) (test 24.8 pg 25.7-32.2 feim=460) MEAN CORPUSCULAR HEMOGLOBIN CONC (BEAKER) (test 30.4 GM/DL 32.3-36.5 ylwk=659) RED CELL DISTRIBUTION WIDTH (BEAKER) (test 18.6 % 11.6-14.4 rfbv=007) PLATELET COUNT (BEAKER) (test czny=897) 254 K/CU MM 150-450 MEAN PLATELET VOLUME (BEAKER) (test oqsz=715) 11.4 fL 9.4-12.4 NUCLEATED RED BLOOD CELLS (BEAKER) (test 0 /100 WBC 0-0 qcam=952) NEUTROPHILS RELATIVE PERCENT (BEAKER) (test 62 % uopp=774) LYMPHOCYTES RELATIVE PERCENT (BEAKER) (test 27 % usra=260) MONOCYTES RELATIVE PERCENT (BEAKER) (test 9 % porv=595) EOSINOPHILS RELATIVE PERCENT (BEAKER) (test 1 % fubn=172) BASOPHILS RELATIVE PERCENT (BEAKER) (test 1 % mqci=450) NEUTROPHILS ABSOLUTE COUNT (BEAKER) (test 5.71 K/ L 1.78-5.38 obed=242) LYMPHOCYTES ABSOLUTE COUNT (BEAKER) (test 2.47 K/ L 1.32-3.57 qoji=450) MONOCYTES ABSOLUTE COUNT (BEAKER) (test 0.83 K/ L 0.30-0.82 deiy=457) EOSINOPHILS ABSOLUTE COUNT (BEAKER) (test 0.07 K/ L 0.04-0.54 hlfp=511) BASOPHILS ABSOLUTE COUNT (BEAKER) (test 0.11 K/ L 0.01-0.08 tnga=251) IMMATURE GRANULOCYTES-RELATIVE PERCENT (BEAKER) 1 % 0-1 (test tsvs=6503) TSH/FREE T4 IF [id number] 04:03:00 Test Item Value Reference Range Comments THYROID STIMULATING HORMONE (BEAKER) (test 3.16 uIU/mL 0.35-4.94 poid=287) BASIC METABOLIC [id number] 03:35:00 Test Item Value Reference Range Comments SODIUM (BEAKER) (test 135 meq/L 136-145 ivwx=838) POTASSIUM (BEAKER) (test 3.9 meq/L 3.5-5.1 gils=660) CHLORIDE (BEAKER) (test 106 meq/L 98-107 bghd=523) CO2 (BEAKER) (test 22 meq/L 22-29 zcsv=027) BLOOD UREA NITROGEN 13 mg/dL 7-21 (BEAKER) (test pkqr=520) CREATININE (BEAKER) (test 0.81 mg/dL 0.57-1.25 huzi=609) GLUCOSE RANDOM (BEAKER) 91 mg/dL 70-105 (test zrtz=507) CALCIUM (BEAKER) (test 8.5 mg/dL 8.4-10.2 xhyd=383) EGFR (BEAKER) (test 95 mL/min/1.73 sq m ESTIMATED GFR IS NOT eyfg=7939) ACCURATE CREATININE CLEARANCE IN PREDICTING GLOMERULAR FILTRATION RATE. ESTIMATED GFR IS NOT APPLICABLE FOR DIALYSIS PATIENTS. CBC W/PLT COUNT & AUTO [id number] 03:24:00 Test Item Value Reference Range Comments WHITE BLOOD CELL COUNT (BEAKER) (test sujr=475) 5.2 K/ L 3.5-10.5 RED BLOOD CELL COUNT (BEAKER) (test xgow=104) 4.07 M/ L 4.63-6.08 HEMOGLOBIN (BEAKER) (test uhez=757) 11.2 GM/DL 13.7-17.5 HEMATOCRIT (BEAKER) (test ouob=700) 35.9 % 40.1-51.0 MEAN CORPUSCULAR VOLUME (BEAKER) (test kvxz=751) 88.2 fL 79.0-92.2 MEAN CORPUSCULAR HEMOGLOBIN (BEAKER) (test 27.5 pg 25.7-32.2 rbmz=795) MEAN CORPUSCULAR HEMOGLOBIN CONC (BEAKER) (test 31.2 GM/DL 32.3-36.5 oqaq=054) RED CELL DISTRIBUTION WIDTH (BEAKER) (test 16.9 % 11.6-14.4 iidd=231) PLATELET COUNT (BEAKER) (test uidz=055) 161 K/CU MM 150-450 MEAN PLATELET VOLUME (BEAKER) (test zcfw=989) 10.7 fL 9.4-12.4 NUCLEATED RED BLOOD CELLS (BEAKER) (test 0 /100 WBC 0-0 ecti=779) NEUTROPHILS RELATIVE PERCENT (BEAKER) (test 51 % edfj=543) LYMPHOCYTES RELATIVE PERCENT (BEAKER) (test 32 % wwwx=387) MONOCYTES RELATIVE PERCENT (BEAKER) (test 11 % fihd=700) EOSINOPHILS RELATIVE PERCENT (BEAKER) (test 3 % bflg=682) BASOPHILS RELATIVE PERCENT (BEAKER) (test 2 % bdxl=166) NEUTROPHILS ABSOLUTE COUNT (BEAKER) (test 2.67 K/ L 1.78-5.38 zzyh=600) LYMPHOCYTES ABSOLUTE COUNT (BEAKER) (test 1.68 K/ L 1.32-3.57 olzi=163) MONOCYTES ABSOLUTE COUNT (BEAKER) (test 0.58 K/ L 0.30-0.82 qxno=929) EOSINOPHILS ABSOLUTE COUNT (BEAKER) (test 0.18 K/ L 0.04-0.54 ykjn=587) BASOPHILS ABSOLUTE COUNT (BEAKER) (test 0.08 K/ L 0.01-0.08 zktn=645) IMMATURE GRANULOCYTES-RELATIVE PERCENT (BEAKER) 1 % 0-1 (test xwuj=0996) TROPONIN [id number] 20:57:00 Test Item Value Reference Range Comments TROPONIN I (BEAKER) (test qzww=438) < ng/mL 0.00-0.03 Troponin I (TnI) levels [...] persistent tachyarrhythmia.CT BRAIN WITHOUT IV CONTRAST - [id number] 18:41:00Reason for exam:->Post tPAFINAL REPORT CT head [...] Paez Verified Date/Time: 12/01/2017 18:41:06 Reading Location: [facility] Radiology Reading Room TROPONIN [id number] 17:00:00 Test Item Value Reference Range Comments TROPONIN I (BEAKER) (test ykvd=013) < ng/mL 0.00-0.03 Troponin I (TnI) levels [...] failure, acidosis, acute neurological disease, and persistent tachyarrhythmia.[id number] 16:23:00 Test Item Value Reference Range Comments POTASSIUM (BEAKER) (test pbhp=737) 3.7 meq/L 3.5-5.1 Check Serum Potassium level 2 hours after oral potassium replacement completed or 30 min after intravenous potassium replacement.[id number] 11:59:00 Test Item Value Reference Range Comments MAGNESIUM (BEAKER) (test 2.2 mg/dL 1.6-2.6 Specimen slightly hemolyzed frwe=017) [id number] 11:59:00 Test Item Value Reference Range Comments PHOSPHORUS (BEAKER) (test 2.6 mg/dL 2.3-4.7 Specimen slightly hemolyzed hcjm=201) HEMOGLOBIN [id number] 11:49:00 Test Item Value Reference Range Comments HEMOGLOBIN A1C (BEAKER) (test vvkx=390) 6.0 % 4.3-6.1 TROPONIN [id number] 08:40:00 Test Item Value Reference Range Comments TROPONIN I (BEAKER) (test xdpa=233) < ng/mL 0.00-0.03 Troponin I (TnI) levels [...] acidosis, acute neurological disease, and persistent tachyarrhythmia.LIPID [id number] 04:39:00 Test Item Value Reference Range Comments TRIGLYCERIDES (BEAKER) (test ebvk=576) 119 mg/dL CHOLESTEROL (BEAKER) (test ttyf=224) 144 mg/dL HDL CHOLESTEROL (BEAKER) (test rlpd=104) 26 mg/dL LDL CHOLESTEROL CALCULATED (BEAKER) (test 94 mg/dL izsc=054) Triglyceride Reference Range: Low Risk <150 Borderline 150- 199 High Risk 200-499 Very High Risk >=500Cholesterol Reference Range: Low Risk <200 Borderline 200-239 High Risk > 240HDL Cholesterol Reference Range: Low Risk >=60 High Risk <40LDL Cholesterol Reference Range: Optimal <100 Near Optimal 100-129 Borderline 130-159 High 160-189 Very High >=190 FastingBASIC METABOLIC [id number] 04:39:00 Test Item Value Reference Range Comments SODIUM (BEAKER) (test 136 meq/L 136-145 dapp=494) POTASSIUM (BEAKER) (test 3.7 meq/L 3.5-5.1 crwr=447) CHLORIDE (BEAKER) (test 105 meq/L 98-107 zeji=655) CO2 (BEAKER) (test 23 meq/L 22-29 xruk=093) BLOOD UREA NITROGEN 14 mg/dL 7-21 (BEAKER) (test fzxe=868) CREATININE (BEAKER) (test 0.86 mg/dL 0.57-1.25 kftb=597) GLUCOSE RANDOM (BEAKER) 94 mg/dL 70-105 (test sdoa=641) CALCIUM (BEAKER) (test 8.8 mg/dL 8.4-10.2 jzga=119) EGFR (BEAKER) (test 88 mL/min/1.73 sq m ESTIMATED GFR IS NOT vjlw=4342) ACCURATE CREATININE CLEARANCE IN PREDICTING GLOMERULAR FILTRATION RATE. ESTIMATED GFR IS NOT APPLICABLE FOR DIALYSIS PATIENTS. FastingCBC W/PLT COUNT & AUTO [id number] 04:25:00 Test Item Value Reference Range Comments WHITE BLOOD CELL COUNT (BEAKER) (test kers=247) 5.0 K/ L 3.5-10.5 RED BLOOD CELL COUNT (BEAKER) (test xoxm=873) 4.03 M/ L 4.63-6.08 HEMOGLOBIN (BEAKER) (test xeuc=740) 11.3 GM/DL 13.7-17.5 HEMATOCRIT (BEAKER) (test dwxe=578) 35.2 % 40.1-51.0 MEAN CORPUSCULAR VOLUME (BEAKER) (test ylpb=333) 87.3 fL 79.0-92.2 MEAN CORPUSCULAR HEMOGLOBIN (BEAKER) (test 28.0 pg 25.7-32.2 yjbu=677) MEAN CORPUSCULAR HEMOGLOBIN CONC (BEAKER) (test 32.1 GM/DL 32.3-36.5 pwco=549) RED CELL DISTRIBUTION WIDTH (BEAKER) (test 16.9 % 11.6-14.4 vvlm=234) PLATELET COUNT (BEAKER) (test xbsh=172) 179 K/CU MM 150-450 MEAN PLATELET VOLUME (BEAKER) (test undd=463) 11.6 fL 9.4-12.4 NUCLEATED RED BLOOD CELLS (BEAKER) (test 0 /100 WBC 0-0 tqlu=375) NEUTROPHILS RELATIVE PERCENT (BEAKER) (test 48 % omim=512) LYMPHOCYTES RELATIVE PERCENT (BEAKER) (test 36 % ispu=291) MONOCYTES RELATIVE PERCENT (BEAKER) (test 10 % zlfp=171) EOSINOPHILS RELATIVE PERCENT (BEAKER) (test 3 % fswd=094) BASOPHILS RELATIVE PERCENT (BEAKER) (test 2 % vsvd=453) NEUTROPHILS ABSOLUTE COUNT (BEAKER) (test 2.41 K/ L 1.78-5.38 dwcq=633) LYMPHOCYTES ABSOLUTE COUNT (BEAKER) (test 1.80 K/ L 1.32-3.57 bmfj=973) MONOCYTES ABSOLUTE COUNT (BEAKER) (test 0.52 K/ L 0.30-0.82 wyvf=006) EOSINOPHILS ABSOLUTE COUNT (BEAKER) (test 0.17 K/ L 0.04-0.54 vehq=445) BASOPHILS ABSOLUTE COUNT (BEAKER) (test 0.08 K/ L 0.01-0.08 poja=341) IMMATURE GRANULOCYTES-RELATIVE PERCENT (BEAKER) 1 % 0-1 (test jmee=5363) HEMOGLOBIN [id number] 22:29:00 Test Item Value Reference Range Comments HEMOGLOBIN A1C (BEAKER) (test avte=024) 5.9 % 4.3-6.1 VITAMIN B12 AND [id number] 18:47:00 Test Item Value Reference Range Comments VITAMIN B12 (BEAKER) (test kkau=716) 1185 pg/mL 213-816 FOLATE (BEAKER) (test hrrn=038) 2.3 ng/mL >=7.0 TROPONIN [id number] 18:18:00 Test Item Value Reference Range Comments TROPONIN I (BEAKER) (test eznv=143) < ng/mL 0.00-0.03 Troponin I (TnI) levels [...] acute neurological disease, and persistent tachyarrhythmia.BASIC METABOLIC [id number] 18:10:00 Test Item Value Reference Range Comments SODIUM (BEAKER) (test 136 meq/L 136-145 ahvb=219) POTASSIUM (BEAKER) (test 3.8 meq/L 3.5-5.1 alxq=646) CHLORIDE (BEAKER) (test 102 meq/L 98-107 xhem=387) CO2 (BEAKER) (test 23 meq/L 22-29 mxbn=476) BLOOD UREA NITROGEN 10 mg/dL 7-21 (BEAKER) (test htoc=086) CREATININE (BEAKER) (test 0.88 mg/dL 0.57-1.25 bcxv=381) GLUCOSE RANDOM (BEAKER) 102 mg/dL 70-105 (test kiai=697) CALCIUM (BEAKER) (test 9.3 mg/dL 8.4-10.2 daho=773) EGFR (BEAKER) (test 86 mL/min/1.73 sq m ESTIMATED GFR IS NOT fwml=7815) ACCURATE CREATININE CLEARANCE IN PREDICTING GLOMERULAR FILTRATION RATE. ESTIMATED GFR IS NOT APPLICABLE FOR DIALYSIS PATIENTS. CBC W/PLT COUNT & AUTO [id number] 17:52:00 Test Item Value Reference Range Comments WHITE BLOOD CELL COUNT (BEAKER) (test cxjy=905) 8.8 K/ L 3.5-10.5 RED BLOOD CELL COUNT (BEAKER) (test paal=127) 4.53 M/ L 4.63-6.08 HEMOGLOBIN (BEAKER) (test odtr=136) 12.6 GM/DL 13.7-17.5 HEMATOCRIT (BEAKER) (test dchb=617) 39.4 % 40.1-51.0 MEAN CORPUSCULAR VOLUME (BEAKER) (test wbdz=797) 87.0 fL 79.0-92.2 MEAN CORPUSCULAR HEMOGLOBIN (BEAKER) (test 27.8 pg 25.7-32.2 dweg=648) MEAN CORPUSCULAR HEMOGLOBIN CONC (BEAKER) (test 32.0 GM/DL 32.3-36.5 koek=973) RED CELL DISTRIBUTION WIDTH (BEAKER) (test 17.0 % 11.6-14.4 ryjc=622) PLATELET COUNT (BEAKER) (test sovh=454) 186 K/CU MM 150-450 MEAN PLATELET VOLUME (BEAKER) (test pkec=952) 10.5 fL 9.4-12.4 NUCLEATED RED BLOOD CELLS (BEAKER) (test 0 /100 WBC 0-0 gdbf=937) NEUTROPHILS RELATIVE PERCENT (BEAKER) (test 69 % oxpn=717) LYMPHOCYTES RELATIVE PERCENT (BEAKER) (test 20 % mgwd=581) MONOCYTES RELATIVE PERCENT (BEAKER) (test 9 % zyos=209) EOSINOPHILS RELATIVE PERCENT (BEAKER) (test 1 % mzfp=597) BASOPHILS RELATIVE PERCENT (BEAKER) (test 1 % bbsp=351) NEUTROPHILS ABSOLUTE COUNT (BEAKER) (test 6.12 K/ L 1.78-5.38 izoi=572) LYMPHOCYTES ABSOLUTE COUNT (BEAKER) (test 1.72 K/ L 1.32-3.57 dxhz=757) MONOCYTES ABSOLUTE COUNT (BEAKER) (test 0.75 K/ L 0.30-0.82 akgf=978) EOSINOPHILS ABSOLUTE COUNT (BEAKER) (test 0.08 K/ L 0.04-0.54 pauy=257) BASOPHILS ABSOLUTE COUNT (BEAKER) (test 0.09 K/ L 0.01-0.08 snco=471) IMMATURE GRANULOCYTES-RELATIVE PERCENT (BEAKER) 1 % 0-1 (test udub=0738) BASIC METABOLIC [id number] 07:51:00 Test Item Value Reference Range Comments SODIUM (BEAKER) (test 136 meq/L 136-145 ujun=883) POTASSIUM (BEAKER) (test 4.0 meq/L 3.5-5.1 bpni=841) CHLORIDE (BEAKER) (test 106 meq/L 98-107 sqbf=482) CO2 (BEAKER) (test 23 meq/L 22-29 zgjt=615) BLOOD UREA NITROGEN 15 mg/dL 7-21 (BEAKER) (test urfs=821) CREATININE (BEAKER) (test 0.92 mg/dL 0.57-1.25 zlin=736) GLUCOSE RANDOM (BEAKER) 92 mg/dL 70-105 (test vdai=763) CALCIUM (BEAKER) (test 8.7 mg/dL 8.4-10.2 skdi=328) EGFR (BEAKER) (test 82 mL/min/1.73 sq m ESTIMATED GFR IS NOT fgip=7036) ACCURATE CREATININE CLEARANCE IN PREDICTING GLOMERULAR FILTRATION RATE. ESTIMATED GFR IS NOT APPLICABLE FOR DIALYSIS PATIENTS. CBC W/PLT COUNT & AUTO [id number] 05:55:00 Test Item Value Reference Range Comments WHITE BLOOD CELL COUNT (BEAKER) (test yybr=636) 5.9 K/ L 3.5-10.5 RED BLOOD CELL COUNT (BEAKER) (test cacw=334) 4.25 M/ L 4.63-6.08 HEMOGLOBIN (BEAKER) (test cawn=591) 12.3 GM/DL 13.7-17.5 HEMATOCRIT (BEAKER) (test wjte=803) 37.8 % 40.1-51.0 MEAN CORPUSCULAR VOLUME (BEAKER) (test zorb=139) 88.9 fL 79.0-92.2 MEAN CORPUSCULAR HEMOGLOBIN (BEAKER) (test 28.9 pg 25.7-32.2 fjuz=281) MEAN CORPUSCULAR HEMOGLOBIN CONC (BEAKER) (test 32.5 GM/DL 32.3-36.5 optp=443) RED CELL DISTRIBUTION WIDTH (BEAKER) (test 15.9 % 11.6-14.4 phqh=037) PLATELET COUNT (BEAKER) (test rkkx=737) 173 K/CU MM 150-450 MEAN PLATELET VOLUME (BEAKER) (test gcmh=606) 11.5 fL 9.4-12.4 NUCLEATED RED BLOOD CELLS (BEAKER) (test 0 /100 WBC 0-0 opyc=514) NEUTROPHILS RELATIVE PERCENT (BEAKER) (test 48 % ksso=085) LYMPHOCYTES RELATIVE PERCENT (BEAKER) (test 34 % dxbz=811) MONOCYTES RELATIVE PERCENT (BEAKER) (test 12 % mudj=168) EOSINOPHILS RELATIVE PERCENT (BEAKER) (test 4 % kpxm=792) BASOPHILS RELATIVE PERCENT (BEAKER) (test 2 % vkpu=672) NEUTROPHILS ABSOLUTE COUNT (BEAKER) (test 2.85 K/ L 1.78-5.38 gjcv=049) LYMPHOCYTES ABSOLUTE COUNT (BEAKER) (test 2.02 K/ L 1.32-3.57 ozzn=508) MONOCYTES ABSOLUTE COUNT (BEAKER) (test 0.68 K/ L 0.30-0.82 leyp=332) EOSINOPHILS ABSOLUTE COUNT (BEAKER) (test 0.25 K/ L 0.04-0.54 wfaw=893) BASOPHILS ABSOLUTE COUNT (BEAKER) (test 0.09 K/ L 0.01-0.08 cmeo=509) IMMATURE GRANULOCYTES-RELATIVE PERCENT (BEAKER) 1 % 0-1 (test mtfp=9954) CBC W/PLT COUNT & AUTO [id number] 05:15:00 Test Item Value Reference Range Comments WHITE BLOOD CELL COUNT (BEAKER) (test suqm=227) 5.4 K/ L 3.5-10.5 RED BLOOD CELL COUNT (BEAKER) (test kevc=645) 4.34 M/ L 4.63-6.08 HEMOGLOBIN (BEAKER) (test nync=738) 12.5 GM/DL 13.7-17.5 HEMATOCRIT (BEAKER) (test nscs=909) 39.0 % 40.1-51.0 MEAN CORPUSCULAR VOLUME (BEAKER) (test ivlc=116) 89.9 fL 79.0-92.2 MEAN CORPUSCULAR HEMOGLOBIN (BEAKER) (test 28.8 pg 25.7-32.2 gugg=437) MEAN CORPUSCULAR HEMOGLOBIN CONC (BEAKER) (test 32.1 GM/DL 32.3-36.5 fdxw=247) RED CELL DISTRIBUTION WIDTH (BEAKER) (test 15.9 % 11.6-14.4 lnua=331) PLATELET COUNT (BEAKER) (test bxfu=610) 162 K/CU MM 150-450 MEAN PLATELET VOLUME (BEAKER) (test arfe=112) 10.6 fL 9.4-12.4 NUCLEATED RED BLOOD CELLS (BEAKER) (test 0 /100 WBC 0-0 eglb=718) NEUTROPHILS RELATIVE PERCENT (BEAKER) (test 52 % aylt=394) LYMPHOCYTES RELATIVE PERCENT (BEAKER) (test 31 % yhai=988) MONOCYTES RELATIVE PERCENT (BEAKER) (test 11 % gxlh=042) EOSINOPHILS RELATIVE PERCENT (BEAKER) (test 4 % dpgz=100) BASOPHILS RELATIVE PERCENT (BEAKER) (test 2 % ryct=475) NEUTROPHILS ABSOLUTE COUNT (BEAKER) (test 2.78 K/ L 1.78-5.38 mtkr=864) LYMPHOCYTES ABSOLUTE COUNT (BEAKER) (test 1.69 K/ L 1.32-3.57 htfq=120) MONOCYTES ABSOLUTE COUNT (BEAKER) (test 0.59 K/ L 0.30-0.82 kfpw=141) EOSINOPHILS ABSOLUTE COUNT (BEAKER) (test 0.21 K/ L 0.04-0.54 xdla=171) BASOPHILS ABSOLUTE COUNT (BEAKER) (test 0.09 K/ L 0.01-0.08 ighl=571) IMMATURE GRANULOCYTES-RELATIVE PERCENT (BEAKER) 1 % 0-1 (test bltp=1907) CT, BRAIN, WITHOUT [id number] 15:31:00FINAL REPORT CT head without contrast 03/12/2017 [...] indeterminate left caudate nucleus infarct. S[facility]: [facility] [place] Verified Date/Time: 03/12/2017 15:31:17 Reading Location: [address] Neuro Reading Room TROPONIN [id number] 15:26:00 Test Item Value Reference Range Comments TROPONIN I (KYARA) (test vlvh=495) 0.02 ng/mL 0.00-0.03 Troponin I (TnI) levels [...] acidosis, acute neurological disease, and persistent tachyarrhythmia.HEMOGLOBIN [id number] 12:38:00 Test Item Value Reference Range Comments HEMOGLOBIN A1C (KYARA) (test mpdo=422) 5.6 % 4.3-6.1 FastingRAD, CHEST, 1 VIEW, NON [id number] 10:06:00Reason for exam:->rule out pneumoniaShould this be [...] Benites Verified Date/Time: 03/12/2017 10:06:57 Reading Location: [facility] Radiology Reading Room [id number] 09:08:00 Test Item Value Reference Range Comments HOMOCYSTEINE (BEAKER) (test rgaf=511) 11.8 umol/L 5.1-15.4 FastingCREATINE KINASE (CK), TOTAL AND [id number] 08:55:00 Test Item Value Reference Range Comments CREATINE KINASE TOTAL (BEAKER) (test lmxg=532) 59 U/L 29-200 CREATINE KINASE-MB (BEAKER) (test gbjb=836) 1.0 ng/mL 0.0-6.6 CREATINE KINASE-MB INDEX (BEAKER) (test oemp=978) 1.7 % CK-MB Reference Range:<6.7 Normal6.7-10.0 Borderline>10.0 AbnormalFastingFastingTROPONIN [id number] 08:55:00 Test Item Value Reference Range Comments TROPONIN I (BEAKER) (test odnm=614) < ng/mL 0.00-0.03 Troponin I (TnI) levels [...] acidosis, acute neurological disease, and persistent tachyarrhythmia.FastingLIPID [id number] 08:48:00 Test Item Value Reference Range Comments TRIGLYCERIDES (BEAKER) (test tjmn=835) 151 mg/dL CHOLESTEROL (BEAKER) (test rshy=808) 147 mg/dL HDL CHOLESTEROL (BEAKER) (test atsj=431) 29 mg/dL LDL CHOLESTEROL CALCULATED (BEAKER) (test 88 mg/dL gkfk=281) Triglyceride Reference Range: Low Risk <150 Borderline 150- 199 High Risk 200-499 Very High Risk >=500Cholesterol Reference Range: Low Risk <200 Borderline 200-239 High Risk > 240HDL Cholesterol Reference Range: Low Risk >=60 High Risk <40LDL Cholesterol Reference Range: Optimal <100 Near Optimal 100-129 Borderline 130-159 High 160-189 Very High >=190 FastingBASIC METABOLIC [id number] 08:48:00 Test Item Value Reference Range Comments SODIUM (BEAKER) (test 136 meq/L 136-145 myqy=256) POTASSIUM (BEAKER) (test 4.4 meq/L 3.5-5.1 kugu=663) CHLORIDE (BEAKER) (test 104 meq/L 98-107 yqdq=257) CO2 (BEAKER) (test 25 meq/L 22-29 qsvi=307) BLOOD UREA NITROGEN 15 mg/dL 7-21 (BEAKER) (test keha=720) CREATININE (BEAKER) (test 0.87 mg/dL 0.57-1.25 hpeo=685) GLUCOSE RANDOM (BEAKER) 102 mg/dL 70-105 (test tbxl=837) CALCIUM (BEAKER) (test 8.9 mg/dL 8.4-10.2 tosp=488) EGFR (BEAKER) (test 87 mL/min/1.73 sq m ESTIMATED GFR IS NOT aeza=2931) ACCURATE CREATININE CLEARANCE IN PREDICTING GLOMERULAR FILTRATION RATE. ESTIMATED GFR IS NOT APPLICABLE FOR DIALYSIS PATIENTS. FastingCBC W/PLT COUNT & AUTO [id number] 08:24:00 Test Item Value Reference Range Comments WHITE BLOOD CELL COUNT (BEAKER) (test zsjj=322) 5.7 K/ L 3.5-10.5 RED BLOOD CELL COUNT (BEAKER) (test aiof=888) 4.23 M/ L 4.63-6.08 HEMOGLOBIN (BEAKER) (test cqam=306) 12.3 GM/DL 13.7-17.5 HEMATOCRIT (BEAKER) (test btjm=964) 37.9 % 40.1-51.0 MEAN CORPUSCULAR VOLUME (BEAKER) (test omet=812) 89.6 fL 79.0-92.2 MEAN CORPUSCULAR HEMOGLOBIN (BEAKER) (test 29.1 pg 25.7-32.2 bsnz=731) MEAN CORPUSCULAR HEMOGLOBIN CONC (BEAKER) (test 32.5 GM/DL 32.3-36.5 hcrs=169) RED CELL DISTRIBUTION WIDTH (BEAKER) (test 15.9 % 11.6-14.4 ovzp=645) PLATELET COUNT (BEAKER) (test ginu=610) 156 K/CU MM 150-450 MEAN PLATELET VOLUME (BEAKER) (test lnov=296) 10.2 fL 9.4-12.4 NUCLEATED RED BLOOD CELLS (BEAKER) (test 0 /100 WBC 0-0 cvqc=215) NEUTROPHILS RELATIVE PERCENT (BEAKER) (test 47 % vudf=214) LYMPHOCYTES RELATIVE PERCENT (BEAKER) (test 37 % fqlp=168) MONOCYTES RELATIVE PERCENT (BEAKER) (test 12 % tytx=358) EOSINOPHILS RELATIVE PERCENT (BEAKER) (test 3 % ayyg=148) BASOPHILS RELATIVE PERCENT (BEAKER) (test 2 % kgcc=254) NEUTROPHILS ABSOLUTE COUNT (BEAKER) (test 2.66 K/ L 1.78-5.38 pjwk=650) LYMPHOCYTES ABSOLUTE COUNT (BEAKER) (test 2.09 K/ L 1.32-3.57 ebxy=559) MONOCYTES ABSOLUTE COUNT (BEAKER) (test 0.70 K/ L 0.30-0.82 dfko=459) EOSINOPHILS ABSOLUTE COUNT (BEAKER) (test 0.15 K/ L 0.04-0.54 ihoy=667) BASOPHILS ABSOLUTE COUNT (BEAKER) (test 0.09 K/ L 0.01-0.08 gpnn=607) IMMATURE GRANULOCYTES-RELATIVE PERCENT (BEAKER) 1 % 0-1 (test rxhf=3084) TSH/FREE T4 IF [id number] 03:38:00 Test Item Value Reference Range Comments THYROID STIMULATING HORMONE (BEAKER) (test 2.01 uIU/mL 0.35-4.94 ybmn=305) VITAMIN B12 AND [id number] 03:38:00 Test Item Value Reference Range Comments VITAMIN B12 (BEAKER) (test ucrv=957) 1008 pg/mL 213-816 FOLATE (BEAKER) (test pewk=304) 8.4 ng/mL >=7.0 CREATINE KINASE (CK), TOTAL AND [id number] 01:03:00 Test Item Value Reference Range Comments CREATINE KINASE TOTAL (BEAKER) (test pnja=610) 66 U/L 29-200 CREATINE KINASE-MB (BEAKER) (test fdeb=238) 1.4 ng/mL 0.0-6.6 CREATINE KINASE-MB INDEX (BEAKER) (test fuyi=464) 2.1 % CK-MB Reference Range:<6.7 Normal6.7-10.0 Borderline>10.0 AbnormalTROPONIN [id number] 01:03:00 Test Item Value Reference Range Comments TROPONIN I (BEAKER) (test lrzs=532) 0.02 ng/mL 0.00-0.03 Troponin I (TnI) levels [...] acute neurological disease, and persistent tachyarrhythmia.BASIC METABOLIC [id number] 00:56:00 Test Item Value Reference Range Comments SODIUM (BEAKER) (test 136 meq/L 136-145 gjqv=571) POTASSIUM (BEAKER) (test 3.9 meq/L 3.5-5.1 fcox=772) CHLORIDE (BEAKER) (test 104 meq/L 98-107 hyco=923) CO2 (BEAKER) (test 24 meq/L 22-29 jdoc=680) BLOOD UREA NITROGEN 14 mg/dL 7-21 (BEAKER) (test ogtz=808) CREATININE (BEAKER) (test 0.87 mg/dL 0.57-1.25 psxr=158) GLUCOSE RANDOM (BEAKER) 104 mg/dL 70-105 (test inwq=948) CALCIUM (BEAKER) (test 9.2 mg/dL 8.4-10.2 xjtq=240) EGFR (BEAKER) (test 87 mL/min/1.73 sq m ESTIMATED GFR IS NOT oszc=3848) ACCURATE CREATININE CLEARANCE IN PREDICTING GLOMERULAR FILTRATION RATE. ESTIMATED GFR IS NOT APPLICABLE FOR DIALYSIS PATIENTS. PROTHROMBIN [id number] 00:27:00 Test Item Value Reference Range Comments PROTIME (BEAKER) (test yojd=432) 17.2 seconds 11.7-14.7 INR (BEAKER) (test ftkp=737) 1.4 <=5.9 RECOMMENDED COUMADIN/WARFARIN INR THERAPY RANGESSTANDARD DOSE: 2.0 - 3.0 Includes: PROPHYLAXIS forvenous thrombosis, systemic embolization; TREATMENT for venous thrombosis and/or pulmonary embolus.HIGH RISK: Target INR is 2.5-3.5 for patients with mechanical heart valves.CBC W/PLT COUNT & AUTO [id number] 00:01:00 Test Item Value Reference Range Comments WHITE BLOOD CELL COUNT (BEAKER) (test cplg=750) 8.2 K/ L 3.5-10.5 RED BLOOD CELL COUNT (BEAKER) (test tvhg=277) 4.57 M/ L 4.63-6.08 HEMOGLOBIN (BEAKER) (test ljtn=457) 13.2 GM/DL 13.7-17.5 HEMATOCRIT (BEAKER) (test ragi=215) 40.5 % 40.1-51.0 MEAN CORPUSCULAR VOLUME (BEAKER) (test pwwd=251) 88.6 fL 79.0-92.2 MEAN CORPUSCULAR HEMOGLOBIN (BEAKER) (test 28.9 pg 25.7-32.2 nxnx=759) MEAN CORPUSCULAR HEMOGLOBIN CONC (BEAKER) (test 32.6 GM/DL 32.3-36.5 cgkv=562) RED CELL DISTRIBUTION WIDTH (BEAKER) (test 15.9 % 11.6-14.4 thwt=095) PLATELET COUNT (BEAKER) (test ntss=466) 198 K/CU MM 150-450 MEAN PLATELET VOLUME (BEAKER) (test cwyq=142) 11.2 fL 9.4-12.4 NUCLEATED RED BLOOD CELLS (BEAKER) (test 0 /100 WBC 0-0 nfua=557) NEUTROPHILS RELATIVE PERCENT (BEAKER) (test 57 % amow=131) LYMPHOCYTES RELATIVE PERCENT (BEAKER) (test 28 % uycb=438) MONOCYTES RELATIVE PERCENT (BEAKER) (test 10 % knjm=785) EOSINOPHILS RELATIVE PERCENT (BEAKER) (test 3 % jbcp=749) BASOPHILS RELATIVE PERCENT (BEAKER) (test 1 % omsf=460) NEUTROPHILS ABSOLUTE COUNT (BEAKER) (test 4.66 K/ L 1.78-5.38 nigd=237) LYMPHOCYTES ABSOLUTE COUNT (BEAKER) (test 2.29 K/ L 1.32-3.57 ejad=066) MONOCYTES ABSOLUTE COUNT (BEAKER) (test 0.81 K/ L 0.30-0.82 ggwo=236) EOSINOPHILS ABSOLUTE COUNT (BEAKER) (test 0.25 K/ L 0.04-0.54 tsif=751) BASOPHILS ABSOLUTE COUNT (BEAKER) (test 0.10 K/ L 0.01-0.08 ycme=656) IMMATURE GRANULOCYTES-RELATIVE PERCENT (BEAKER) 1 % 0-1 (test ooww=2257)
[2018-08-18 12:11] LABS: Absolute Lymphocytes (CBC) 1.4 K/uL (0.7-4.9); Absolute Monocytes 0.6 K/uL (0.1-1.3); Basophils % 0.4 % (0-1.3); Eosinophils % 1.6 % (0-4.4); Hematocrit 31.2 % (39.6-49.0); Lymphocytes % 23.5 % (15.3-44.8); MPV 9.2 fL (7.6-11.3); Monocytes % 9.8 % (3.3-12.3); RBC Red Blood Cell Count 4.05 M/uL (4.33-5.43)
[2018-08-18 12:12] LABS: Protime INR 1.04
[2018-08-18] MEDS ORDERED: NA CHLORIDE 0.9% 1,000 ML ONE (12:17)
[2018-08-18] MEDS ORDERED: ASPIRIN 81 MG CHEWABLE TABLET ONE (12:17)
[2018-08-18] MEDS ORDERED: NITROGLYCERIN 0.4 MG/TAB SL ONE (12:17)
[2018-08-18 12:35] LABS: ALT/SGPT 12 U/L (12-78); AST/SGOT 19 U/L (15-37); Albumin 3.8 g/dL (3.4-5.0); Alkaline Phosphatase 139 U/L (45-117); BUN Blood Urea Nitrogen 12 mg/dL (7-18); Bicarbonate 27 mmol/L (21-32); Bilirubin Direct 0.1 mg/dL (0-0.2); Bilirubin Total 0.5 mg/dL (0.2-1.0); Glucose Level 89 mg/dL (74-106); Magnesium 2.2 mg/dL (1.8-2.4); NT PRO-BNP 109 pg/mL (<125); Potassium 4.4 mmol/L (3.5-5.1); Protein, Total 7.9 g/dL (6.4-8.2); Sodium Level 133 mmol/L (136-145); Troponin (Emerg Dept Use Only) < 0.02 ng/mL (0.0-0.045)
[2018-08-18 12:51] LABS: Anisocytosis 1+; Blood Morphology Comment NOTED (NOT SEEN); Elliptocytes 1+; Ovalocytes 1+; Platelet Estimate ADEQ
--- NOTE | 2018-08-18 12:52 | RAD REPORT ---
EXAM DESCRIPTION: RAD - Chest Single View - 08/18/2018 12:31 pm CLINICAL HISTORY: CHEST PAIN Chest pain. COMPARISON: Chest Single View dated 06/06/2018; Chest Single View dated 05/28/2018; Chest Single View d ated 05/18/2018; Chest Single View dated 02/14/2018 FINDINGS: Portable technique limits examination quality. The lungs are emphysematous but clear. The heart is normal in size. Dual lead pacer device is present . IMPRESSION: Mild COPD.
[2018-08-18] MEDS ORDERED: MECLIZINE HCL 12.5 MG TAB ONE (13:25)
--- NOTE | 2018-08-18 13:37 | ER ---
Nurse's Notes [facility] Name: Maurice Morfin Age: 68 yrs Sex: Male : 1950 Arrival Date: 08/18/2018 Time: 11:08 Bed 15 Private MD: Yung Thomas Diagnosis: Chest pain, unspecified Presentation: 08/18 11:17 Transition of care: patient was not received from another setting of care. Onset of ss symptoms was August 18, 2018. Risk Assessment: Do you want to hurt yourself or someone else? Patient reports no desire to harm self or others. Initial Sepsis Screen: Does the patient meet any 2 criteria? No. Patient's initial sepsis screen is negative. Does the patient have a suspected source of infection? No. Patient's initial sepsis screen is negative. Care prior to arrival: None. 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 Triage Assessment: 11:31 General: Appears uncomfortable, unkempt, Behavior is anxious. Pain: Complains of pain tw2 in chest. Cardiovascular: Reports chest pain. Historical: - Allergies: 11:16 Codeine; ss - Home Meds: 11:40 atorvastatin 80 mg Oral tab 1 tab once daily [Active]; clopidogrel 75 mg Oral tab 1 tab tw2 once daily [Active]; gabapentin 300 mg Oral cap 1 cap 3 times per day [Active]; losartan-hydrochlorothiazide 100-25 mg Oral tab [Active]; pantoprazole 40 mg Oral TbEC 1 tab once daily [Active]; nitroglycerin 0.4 Oral cpER [Active]; tramadol 50 mg Oral tab 1 tab every 4-6 hours [Active]; Flomax 0.4 mg Oral cp24 1 cap once daily [Active]; - PMHx: 11:16 Cholelithiasis; COPD; CVA; Dementia; enlarged prostate; Hernia; Hypertension; NE; PVD; ss TIA; - PSHx: 11:16 Heart stents; Leg stents; leg bypass; Pacemaker; Cholecystectomy; ss - Immunization history:: Adult Immunizations up to date. - Social history:: Smoking status: Patient uses tobacco products. - Ebola Screening: : Patient negative for fever greater than or equal to 101.5 degrees Fahrenheit, and additional compatible Ebola Virus Disease symptoms Patient denies exposure to infectious person Patient denies travel to an Ebola-affected area in the 21 days before illness onset No symptoms or risks identified at this time. Screenin:40 Abuse screen: Denies threats or abuse. Nutritional screening: No deficits noted. tw2 Tuberculosis screening: No symptoms or risk factors identified. Fall Risk None identified. Assessment: 11:22 General: Appears slender, unkempt, Behavior is anxious. Pain: Complains of pain in left tw2 breast Pain does not radiate. Pain began 1 hour ago. Neuro: Level of Consciousness is awake, alert, obeys commands, Oriented to person, place, time, situation. Cardiovascular: Reports chest pain, Heart tones S1 S2 Patient's skin is warm and dry. Respiratory: Airway is patent Respiratory effort is even, unlabored, Respiratory pattern is regular, symmetrical, Breath sounds are clear bilaterally. GI: No signs and/or symptoms were reported involving the gastrointestinal system. Abdomen is flat, Bowel sounds present X 4 quads. : No signs and/or symptoms were reported regarding the genitourinary system. EENT: No signs and/or symptoms were reported regarding the EENT system. Derm: No signs and/or symptoms reported regarding the dermatologic system. Musculoskeletal: Range of motion: intact in all extremities. 12:37 Reassessment: Patient appears in no apparent distress at this time. No changes from tw2 previously documented assessment. Patient and/or family updated on plan of care and expected duration. Pain level reassessed. Patient is alert, oriented x 3, equal unlabored respirations, skin warm/dry/pink. Vital Signs: 11:19 BP 145 / 72; Pulse 83; Resp 18; Temp 98.3; Pulse Ox 100% on R/A; sg 12:37 BP 144 / 73; Pulse 71; Resp 17; Pulse Ox 98% on R/A; tw2 ED Course: 11:08 Patient arrived in ED. mr 11:14 Yung Thomas MD is Private Physician. rg4 11:16 Arm band placed on. ss 11:17 Triage completed. ss 11:20 EKG done, by electroencephalogram technologist. reviewed by Caio Cruz MD. sg 11:21 Placed in gown. Bed in low position. Adult w/ patient. hospital monitor on. Pulse ox on. tw2 NIBP on. 11:26 Caio Wilde PA is PHCP. cp 11:26 Caio Cruz MD is Attending Physician. cp 11:31 Gi Angelo RN is Primary Nurse. tw2 11:31 Patient maintains SpO2 saturation greater than 95% on room air. tw2 12:00 Inserted saline lock: 22 gauge in left hand, using aseptic technique. ,using aseptic tw2 technique. no blood collected but line flushes well. 12:32 XRAY Chest (1 view) In Process Unspecified. EDMS 13:07 Report given to Robert. tw2 13:22 Primary Nurse role handed off by Gi Angelo RN sg 13:22 Sim Azul RN is Primary Nurse. sg 13:30 No provider procedures requiring assistance completed. sg 13:33 Epifanio Gonzalez MD is Referral Physician. cp 13:38 IV discontinued, intact, bleeding controlled, No redness/swelling at site. Pressure sg dressing applied. Administered Medications: 12:04 Drug: Aspirin Chewable Tablet 324 mg Route: PO; tw2 12:06 Drug: NS 0.9% 500 ml Route: IV; Rate: bolus; Site: left hand; tw2 12:06 Drug: Nitroglycerin 0.4 mg Route: Sublingual; tw2 12:55 Drug: NS 0.9% 500 ml Route: IV; Rate: 125 ml/hr; Site: left hand; sg Outcome: 13:38 Patient left the ED. sg 13:38 AMA AMA form signed sg 13:38 Condition: stable 13:38 Instructed on follow up and referral plans. medication usage, safety practices, Demonstrated understanding of instructions, follow-up care, Prescriptions given X none Signatures: Dispatcher [employer] EDMS Sim Azul RN RN sg ColbertLety Lupe Donaldson RN RN Caio iWlde PA PA cp Gi Angelo RN RN tw2 Yina Santiago rg4
--- NOTE | 2018-08-18 13:37 | EDPHYS ---
Physician Documentation [facility] Name: Maurice Morfin Age: 68 yrs Sex: Male : 1950 Arrival Date: 08/18/2018 Time: 11:08 Bed 15 Private MD: Yung Thomas ED Physician Caio Cruz HPI: 08/18 11:53 This 68 yrs old Male presents to ER via Wheelchair with complaints of Chest cp Pain. 11:55 The patient or guardian reports chest pain that is located primarily in the anterior cp chest wall, left. 11:55 Onset: 1 hour(s) ago. cp 11:55 The pain does not radiate. Associated signs and symptoms: Pertinent negatives: cp abdominal pain, cough, diaphoresis, lower extremity pain, lower extremity swelling, palpitations, shortness of breath, vomiting. The chest pain is described as dull. Duration: The patient or guardian reports a single episode, that is still ongoing, and unchanged. 11:55 Severity of pain: in the emergency department the pain is unchanged. cp Historical: - Allergies: 11:16 Codeine; ss - Home Meds: 11:40 atorvastatin 80 mg Oral tab 1 tab once daily [Active]; clopidogrel 75 mg Oral tab 1 tab tw2 once daily [Active]; gabapentin 300 mg Oral cap 1 cap 3 times per day [Active]; losartan-hydrochlorothiazide 100-25 mg Oral tab [Active]; pantoprazole 40 mg Oral TbEC 1 tab once daily [Active]; nitroglycerin 0.4 Oral cpER [Active]; tramadol 50 mg Oral tab 1 tab every 4-6 hours [Active]; Flomax 0.4 mg Oral cp24 1 cap once daily [Active]; - PMHx: 11:16 Cholelithiasis; COPD; CVA; Dementia; enlarged prostate; Hernia; Hypertension; [place]; PVD; ss TIA; - PSHx: 11:16 Heart stents; Leg stents; leg bypass; Pacemaker; Cholecystectomy; ss - Immunization history:: Adult Immunizations up to date. - Social history:: Smoking status: Patient uses tobacco products. - Ebola Screening: : Patient negative for fever greater than or equal to 101.5 degrees Fahrenheit, and additional compatible Ebola Virus Disease symptoms Patient denies exposure to infectious person Patient denies travel to an Ebola-affected area in the 21 days before illness onset No symptoms or risks identified at this time. ROS: 11:55 Constitutional: Negative for body aches, chills, fever, poor PO intake. cp 11:55 Eyes: Negative for injury, pain, redness, and discharge. cp 11:55 ENT: Negative for drainage from ear(s), ear pain, sore throat, difficulty swallowing, difficulty handling secretions. 11:55 Cardiovascular: Positive for chest pain, Negative for edema, palpitations. 11:55 Respiratory: Negative for cough, shortness of breath, wheezing. 11:55 Abdomen/GI: Negative for abdominal pain, nausea, vomiting, and diarrhea, constipation. 11:55 Back: Negative for pain at rest, pain with movement, radiated pain. 11:55 : Negative for urinary symptoms. 11:55 Skin: Negative for cellulitis, rash. 11:55 Neuro: Negative for altered mental status, dizziness, headache, weakness. 11:55 All other systems are negative. Exam: 11:30 ECG was reviewed by the Attending Physician. cp 11:58 Constitutional: The patient appears in no acute distress, alert, awake, cp non-diaphoretic, non-toxic, well developed, well nourished. 11:58 Head/Face: Normocephalic, atraumatic. cp 11:58 Eyes: Periorbital structures: appear normal, Conjunctiva: normal, no exudate, no injection, Sclera: no appreciated abnormality, Lids and lashes: appear normal, bilaterally. 11:58 ENT: External ear(s): are unremarkable, Nose: is normal, Mouth: Lips: moist, Oral mucosa: moist, Posterior pharynx: is normal, airway is patent, no erythema, no exudate. 11:58 Neck: ROM/movement: is normal, is supple, without pain, no range of motions limitations, no meningismus, no nuchal rigidity. 11:58 Chest/axilla: Inspection: normal, Palpation: is normal, no crepitus, no tenderness. 11:58 Cardiovascular: Rate: normal, Rhythm: regular, Edema: is not appreciated, JVD: is not appreciated. 11:58 Respiratory: the patient does not display signs of respiratory distress, Respirations: normal, no use of accessory muscles, no retractions, no splinting, no tachypnea, labored breathing, is not present, Breath sounds: are clear throughout, no decreased breath sounds, no stridor, no wheezing. 11:58 Abdomen/GI: Inspection: abdomen appears normal, Bowel sounds: active, all quadrants, Palpation: abdomen is soft and non-tender, in all quadrants, rebound tenderness, is not appreciated, voluntary guarding, is not appreciated, involuntary guarding, is not appreciated. 11:58 Back: pain, is absent, ROM is normal. 11:58 Skin: no rash present. 11:58 Neuro: Orientation: to person, place \T\ time. Mentation: is normal, Motor: moves all fours, strength is normal. Vital Signs: 11:19 BP 145 / 72; Pulse 83; Resp 18; Temp 98.3; Pulse Ox 100% on R/A; sg 12:37 BP 144 / 73; Pulse 71; Resp 17; Pulse Ox 98% on R/A; tw2 MDM: 11:26 Patient medically screened. cp 12:00 Differential diagnosis: abnormal EKG, acute myocardial infarction, pancreatitis, cp pneumonia, pneumothorax, pulmonary embolus, stable angina, thoracic aortic disection, unstable angina. 13:35 The patient was given aspirin in the Emergency Department. cp 13:35 Data reviewed: vital signs, nurses notes, lab test result(s), EKG, radiologic studies, cp plain films. Test interpretation: by ED physician or midlevel provider: ECG, plain radiologic studies. Counseling: I had a detailed discussion with the patient and/or guardian regarding: the historical points, exam findings, and any diagnostic results supporting the discharge/admit diagnosis, lab results, radiology results. Refusal of service: The patient/guardian displays adequate decision making capability and despite a detailed discussion of alternatives, benefits, risks, and consequences refuses: continued monitoring and further testing. 08/18 11:36 Order name: Basic Metabolic Panel; Complete Time: 12:58 tw2 08/18 11:36 Order name: CBC with Diff; Complete Time: 12:55 tw2 08/18 12:56 Interpretation: Normal except: RBC 4.05; HGB 10.0; HCT 31.2; MCV 77.1; MCH 24.7; RDW cp 20.3. 08/18 11:36 Order name: LFT's; Complete Time: 12:58 tw2 08/18 11:36 Order name: Magnesium; Complete Time: 12:58 tw2 08/18 12:59 Interpretation: MG 2.2; Reviewed. 08/18 11:36 Order name: NT PRO-BNP; Complete Time: 12:58 tw2 08/18 11:36 Order name: PT-INR; Complete Time: 12:55 tw2 08/18 11:36 Order name: Troponin (emerg Dept Use Only); Complete Time: 12:58 tw2 08/18 11:36 Order name: XRAY Chest (1 view); Complete Time: 12:55 tw2 08/18 13:00 Interpretation: Report review. 08/18 11:44 Order name: Lipase; Complete Time: 12:55 cp 08/18 12:39 Order name: Manual Differential; Complete Time: 12:55 EDMS 08/18 13:00 Interpretation: Normal except: BANDS [F] 2. 08/18 11:16 Order name: EKG; Complete Time: 11:18 ss 08/18 11:36 Order name: EKG - Nurse/Tech; Complete Time: 11:38 tw2 08/18 11:36 Order name: Cardiac monitoring; Complete Time: 11:38 tw2 08/18 11:36 Order name: IV Saline Lock; Complete Time: 12:08 tw2 08/18 11:36 Order name: Labs collected and sent; Complete Time: 12:08 tw08/18 11:36 Order name: O2 Per Protocol; Complete Time: 11:39 tw08/18 11:36 Order name: O2 Sat Monitoring; Complete Time: 11:39 tw2 EC:30 Rate is 73 beats/min. Rhythm is regular. CA interval is normal. QRS interval is normal. QT interval is normal. Interpreted by me. Reviewed by me. Administered Medications: 12:04 Drug: Aspirin Chewable Tablet 324 mg Route: PO; tw2 12:06 Drug: NS 0.9% 500 ml Route: IV; Rate: bolus; Site: left hand; tw2 12:06 Drug: Nitroglycerin 0.4 mg Route: Sublingual; tw2 12:55 Drug: NS 0.9% 500 ml Route: IV; Rate: 125 ml/hr; Site: left hand; Disposition: 08/18/18 13:36 Patient has left against medical advice. Impression: Chest pain, unspecified. - Patients states they are going to Home. - Condition is Stable. - Discharge Instructions: Nonspecific Chest Pain, Aspirin and Your Heart. Follow up: Epifanio Gonzalez MD; When: 1 - 2 days; Reason: Recheck today's complaints. - Problem is new. - Symptoms have improved. Addendum: 08/22/2018 08:52 Co-signature as Attending Physician, Caio Cruz MD I agree with the assessment and c hull plan of care. Signatures: Dispatcher [employer] EDSim Silverio RN RN Caio Paz MD MD cha Smirch, Shelby, RN RN ss Caio Wilde PA PA Gi Miller RN RN tw2 Corrections: (The following items were deleted from the chart) 08/18 13:38 13:36 08/18/2018 13:36 Patients has left against medical advice. Impression: Chest sg pain, unspecified. Patient states they are going to Home. Condition is Stable. Follow up: Epifanio Gonzalez; When: 1 - 2 days; Reason: Recheck today's complaints. Problem is new. Symptoms have improved. cp
[2018-08-18 14:02] VITALS: TEMP 98.3
[2018-08-18 14:03] VITALS: BP 144/73; O2SAT 98
--- NOTE | 2018-08-19 08:07 | EKG ---
Test Date: 2018-08-18 Test Time: 11:22:05 Leather Colorer: EWA MEASUREMENT RESULTS: Intervals: Rate: 73 MD: 170 QRSD: 74 QT: 370 QTc: 407 [place]: P: 97 MD: 170 QRS: 70 T: 50 INTERPRETIVE STATEMENTS: Sinus rhythm with premature supraventricular complexes ST abnormality, possible digitalis effect Abnormal ECG Compared to ECG 06/06/2018 15:14:37 Atrial premature complex(es) now present Sinus arrhythmia no longer present Ventricular premature complex(es) no longer present ST (T wave) deviation still present Electronically Signed On 08-19-18 08:05:54 CDT by Epifanio Gonzalez
== END 2018-08-18 13:38 | disposition left against medical advice (07) ==
LOC: ER 11:05
DX: R07.9 Chest pain, unspecified (principal); J44.9 Chronic obstructive pulmonary disease, unspecified; F03.90 Unspecified dementia, unspecified severity, without behavioral disturbance, psychotic disturbance, mood disturbance, and anxiety; I10 Essential (primary) hypertension; I25.2 Old myocardial infarction; Z86.73 Personal history of transient ischemic attack (TIA), and cerebral infarction without residual deficits; Z72.0 Tobacco use; Z53.29 Procedure and treatment not carried out because of patient's decision for other reasons
CPT/HCPCS: 93005; 85025; 80048; 36415; 83735; 85610; 80076; 84484; 83690; 83880; 71045; 99285; J7030

== ENCOUNTER 2019-02-20 12:18 | Observation (INO) | payer OTHER ==
--- OUTSIDE RECORDS SUMMARY | 2019-02-20 12:22 | XMS REPORT ---
:1950 Author Organization [facility] Address [address] [place] [address] Care Team Providers Name Role Phone VANDANA [...] Value Reference Range Comments MAGNESIUM (BEAKER) (test buyx=604) 1.9 mg/dL 1.6-2.6 BASIC METABOLIC [id number] 05:42:00 Test Item Value Reference Range Comments SODIUM (BEAKER) (test 136 meq/L 136-145 hbnn=553) POTASSIUM (BEAKER) (test 3.8 meq/L 3.5-5.1 qmys=858) CHLORIDE (BEAKER) (test 107 meq/L 98-107 cyok=949) CO2 (BEAKER) (test 24 meq/L 22-29 zqwp=225) BLOOD UREA NITROGEN 14 mg/dL 7-21 (BEAKER) (test wncj=426) CREATININE (BEAKER) (test 0.84 mg/dL 0.57-1.25 yiha=245) GLUCOSE RANDOM (BEAKER) 113 mg/dL 70-105 (test hnud=774) CALCIUM (BEAKER) (test 8.1 mg/dL 8.4-10.2 sdvb=396) EGFR (BEAKER) (test 91 mL/min/1.73 sq m ESTIMATED GFR IS NOT smez=1318) ACCURATE CREATININE CLEARANCE IN PREDICTING GLOMERULAR FILTRATION RATE. ESTIMATED GFR IS NOT APPLICABLE FOR DIALYSIS PATIENTS. CBC W/PLT COUNT & AUTO [id number] 04:43:00 Test Item Value Reference Range Comments WHITE BLOOD CELL COUNT (BEAKER) (test sopr=494) 4.7 K/ L 3.5-10.5 RED BLOOD CELL COUNT (BEAKER) (test zdrm=336) 3.54 M/ L 4.63-6.08 HEMOGLOBIN (BEAKER) (test qfvv=843) 8.8 GM/DL 13.7-17.5 HEMATOCRIT (BEAKER) (test keal=035) 28.9 % 40.1-51.0 MEAN CORPUSCULAR VOLUME (BEAKER) (test mnlq=590) 81.6 fL 79.0-92.2 MEAN CORPUSCULAR HEMOGLOBIN (BEAKER) (test 24.9 pg 25.7-32.2 gnsa=488) MEAN CORPUSCULAR HEMOGLOBIN CONC (BEAKER) (test 30.4 GM/DL 32.3-36.5 icun=974) RED CELL DISTRIBUTION WIDTH (BEAKER) (test 18.3 % 11.6-14.4 xhwb=156) PLATELET COUNT (BEAKER) (test bqvp=098) 156 K/CU MM 150-450 MEAN PLATELET VOLUME (BEAKER) (test rzbk=797) 11.0 fL 9.4-12.4 NUCLEATED RED BLOOD CELLS (BEAKER) (test 0 /100 WBC 0-0 hhsg=356) NEUTROPHILS RELATIVE PERCENT (BEAKER) (test 55 % irqk=738) LYMPHOCYTES RELATIVE PERCENT (BEAKER) (test 29 % jcpg=937) MONOCYTES RELATIVE PERCENT (BEAKER) (test 11 % sxnj=577) EOSINOPHILS RELATIVE PERCENT (BEAKER) (test 3 % vnzo=292) BASOPHILS RELATIVE PERCENT (BEAKER) (test 2 % ceuk=357) NEUTROPHILS ABSOLUTE COUNT (BEAKER) (test 2.59 K/ L 1.78-5.38 ozgl=846) LYMPHOCYTES ABSOLUTE COUNT (BEAKER) (test 1.34 K/ L 1.32-3.57 wihq=263) MONOCYTES ABSOLUTE COUNT (BEAKER) (test 0.51 K/ L 0.30-0.82 ohez=480) EOSINOPHILS ABSOLUTE COUNT (BEAKER) (test 0.15 K/ L 0.04-0.54 rdrb=721) BASOPHILS ABSOLUTE COUNT (BEAKER) (test 0.07 K/ L 0.01-0.08 lvyv=891) IMMATURE GRANULOCYTES-RELATIVE PERCENT (BEAKER) 1 % 0-1 (test bqgn=9025) [id number] 19:48:00 Test Item Value Reference Range Comments ACTIVATED CLOTTING TIME 158 sec TESTED AT [facility] [address] ([place]) (test umed=611) [facility] [address] [id number] 09:20:00 Test Item Value Reference Range Comments PARTIAL THROMBOPLASTIN TIME (BEAKER) (test 76.2 seconds 22.5-36.0 xfvv=225) CREATINE KINASE (CK)2018-04-08 07:02:00 Test Item Value Reference Range Comments CREATINE KINASE TOTAL (KYARA) (test dbaj=992) 74 U/L 29-200 LACTIC ACID, VENOUS, WHOLE [id number] 06:56:00 Test Item Value Reference Range Comments LACTATE BLOOD VENOUS (2) ([facility]) (test 1.1 mmol/L 0.5-2.2 ovfh=6040) NERVE CONDUCTION STUDIES; 3-4 [id number] 06:53:00Select Extremity-> Right Leg Reason for exam:->painB[facility] CenterNeurophysiology DepartmentELECTROMYOGRAPHY / NERVE CONDUCTION STUDY [address] [place], [place] [id number] Name: Mami Pena : Date of : [...] ConductionVelocitySural.RLower leg 2.9 ms 3.7 ms 12 琦V Ankle-Lower leg 2.9 ms 140 mm 48 [...] right lower limb. ____Melody Benavidez M.D. 06:53 [id number] 03:03:00 Test Item Value Reference Range Comments PARTIAL THROMBOPLASTIN TIME (BEAKER) (test 82.1 seconds 22.5-36.0 dvyz=410) CT, CTA AAA, W/ SAMMY.EXT.[id number] 16:54:00Addendum BeginsREPORT STATUS:A Addendum: I agree with the previously described non vascular findings. Signed: Angel Payne MDReport Verified Date/Time: 2018 16:54:33 Reading Location: [place] [address] Angio Body Reading RoomAddendum EndsFINAL REPORT CT [...] dictated regarding the non-vascular findings by the Rail Splitter Radiologist. Signed: Steve Musa MDReport Verified Date/Time: 04/07/2018 15:32:19 Reading Location: [place] [address] Cardiology MRI TROPONIN [id number] 11:39:00 Test Item Value Reference Range Comments TROPONIN I (BEAKER) (test ylxn=932) < ng/mL 0.00-0.03 Troponin I (TnI) levels [...] acute neurological disease, and persistent tachyarrhythmia.BASIC METABOLIC [id number] 16:14:00 Test Item Value Reference Range Comments SODIUM (BEAKER) (test 133 meq/L 136-145 ypaw=480) POTASSIUM (BEAKER) (test 3.9 meq/L 3.5-5.1 amqk=418) CHLORIDE (BEAKER) (test 99 meq/L 98-107 trax=739) CO2 (BEAKER) (test 23 meq/L 22-29 qtzu=820) BLOOD UREA NITROGEN 14 mg/dL 7-21 (BEAKER) (test uodq=998) CREATININE (BEAKER) (test 1.02 mg/dL 0.57-1.25 yjst=090) GLUCOSE RANDOM (BEAKER) 102 mg/dL 70-105 (test xcmd=119) CALCIUM (BEAKER) (test 9.7 mg/dL 8.4-10.2 fira=745) EGFR (BEAKER) (test 72 mL/min/1.73 sq m ESTIMATED GFR IS NOT vzvi=4689) ACCURATE CREATININE CLEARANCE IN PREDICTING GLOMERULAR FILTRATION RATE. ESTIMATED GFR IS NOT APPLICABLE FOR DIALYSIS PATIENTS. PT/[id number] 16:05:00 Test Item Value Reference Range Comments PROTIME (BEAKER) (test febf=961) 13.8 seconds 11.7-14.7 INR (BEAKER) (test imjq=887) 1.1 <=5.9 PARTIAL THROMBOPLASTIN TIME (BEAKER) (test 31.6 seconds 22.5-36.0 lvgu=757) RECOMMENDED COUMADIN/WARFARIN INR THERAPY RANGESSTANDARD DOSE: 2.0 - 3.0 Includes: PROPHYLAXIS forvenous thrombosis, systemic embolization; TREATMENT for venous thrombosis and/or pulmonary embolus.HIGH RISK: Target INR is 2.5-3.5 for patients with mechanical heart valves.CBC W/PLT COUNT & AUTO [id number] 15:56:00 Test Item Value Reference Range Comments WHITE BLOOD CELL COUNT (BEAKER) (test usxu=455) 9.2 K/ L 3.5-10.5 RED BLOOD CELL COUNT (BEAKER) (test dqjh=306) 4.75 M/ L 4.63-6.08 HEMOGLOBIN (BEAKER) (test yzwb=976) 11.8 GM/DL 13.7-17.5 HEMATOCRIT (BEAKER) (test odsv=841) 38.8 % 40.1-51.0 MEAN CORPUSCULAR VOLUME (BEAKER) (test cmub=841) 81.7 fL 79.0-92.2 MEAN CORPUSCULAR HEMOGLOBIN (BEAKER) (test 24.8 pg 25.7-32.2 jexc=422) MEAN CORPUSCULAR HEMOGLOBIN CONC (BEAKER) (test 30.4 GM/DL 32.3-36.5 rkve=689) RED CELL DISTRIBUTION WIDTH (BEAKER) (test 18.6 % 11.6-14.4 eofy=700) PLATELET COUNT (BEAKER) (test minx=377) 254 K/CU MM 150-450 MEAN PLATELET VOLUME (BEAKER) (test gigb=641) 11.4 fL 9.4-12.4 NUCLEATED RED BLOOD CELLS (BEAKER) (test 0 /100 WBC 0-0 bjwa=630) NEUTROPHILS RELATIVE PERCENT (BEAKER) (test 62 % yqqf=740) LYMPHOCYTES RELATIVE PERCENT (BEAKER) (test 27 % uxlc=913) MONOCYTES RELATIVE PERCENT (BEAKER) (test 9 % xhoe=812) EOSINOPHILS RELATIVE PERCENT (BEAKER) (test 1 % hqyo=075) BASOPHILS RELATIVE PERCENT (BEAKER) (test 1 % xmxg=090) NEUTROPHILS ABSOLUTE COUNT (BEAKER) (test 5.71 K/ L 1.78-5.38 kwst=567) LYMPHOCYTES ABSOLUTE COUNT (BEAKER) (test 2.47 K/ L 1.32-3.57 hhus=854) MONOCYTES ABSOLUTE COUNT (BEAKER) (test 0.83 K/ L 0.30-0.82 xclq=616) EOSINOPHILS ABSOLUTE COUNT (BEAKER) (test 0.07 K/ L 0.04-0.54 dmlx=311) BASOPHILS ABSOLUTE COUNT (BEAKER) (test 0.11 K/ L 0.01-0.08 ramy=456) IMMATURE GRANULOCYTES-RELATIVE PERCENT (BEAKER) 1 % 0-1 (test xewh=8650) TSH/FREE T4 IF [id number] 04:03:00 Test Item Value Reference Range Comments THYROID STIMULATING HORMONE (BEAKER) (test 3.16 uIU/mL 0.35-4.94 auwn=718) BASIC METABOLIC [id number] 03:35:00 Test Item Value Reference Range Comments SODIUM (BEAKER) (test 135 meq/L 136-145 ztph=434) POTASSIUM (BEAKER) (test 3.9 meq/L 3.5-5.1 hpqp=305) CHLORIDE (BEAKER) (test 106 meq/L 98-107 tvwk=211) CO2 (BEAKER) (test 22 meq/L 22-29 nvzg=194) BLOOD UREA NITROGEN 13 mg/dL 7-21 (BEAKER) (test dngy=940) CREATININE (BEAKER) (test 0.81 mg/dL 0.57-1.25 vaou=696) GLUCOSE RANDOM (BEAKER) 91 mg/dL 70-105 (test drck=460) CALCIUM (BEAKER) (test 8.5 mg/dL 8.4-10.2 tycl=416) EGFR (BEAKER) (test 95 mL/min/1.73 sq m ESTIMATED GFR IS NOT eyor=5776) ACCURATE CREATININE CLEARANCE IN PREDICTING GLOMERULAR FILTRATION RATE. ESTIMATED GFR IS NOT APPLICABLE FOR DIALYSIS PATIENTS. CBC W/PLT COUNT & AUTO [id number] 03:24:00 Test Item Value Reference Range Comments WHITE BLOOD CELL COUNT (BEAKER) (test yumc=557) 5.2 K/ L 3.5-10.5 RED BLOOD CELL COUNT (BEAKER) (test wtfw=671) 4.07 M/ L 4.63-6.08 HEMOGLOBIN (BEAKER) (test rbhz=035) 11.2 GM/DL 13.7-17.5 HEMATOCRIT (BEAKER) (test qrim=739) 35.9 % 40.1-51.0 MEAN CORPUSCULAR VOLUME (BEAKER) (test zhuv=855) 88.2 fL 79.0-92.2 MEAN CORPUSCULAR HEMOGLOBIN (BEAKER) (test 27.5 pg 25.7-32.2 ohso=878) MEAN CORPUSCULAR HEMOGLOBIN CONC (BEAKER) (test 31.2 GM/DL 32.3-36.5 gbqi=927) RED CELL DISTRIBUTION WIDTH (BEAKER) (test 16.9 % 11.6-14.4 tjbu=768) PLATELET COUNT (BEAKER) (test jooq=457) 161 K/CU MM 150-450 MEAN PLATELET VOLUME (BEAKER) (test sqoo=537) 10.7 fL 9.4-12.4 NUCLEATED RED BLOOD CELLS (BEAKER) (test 0 /100 WBC 0-0 jodf=637) NEUTROPHILS RELATIVE PERCENT (BEAKER) (test 51 % ltic=271) LYMPHOCYTES RELATIVE PERCENT (BEAKER) (test 32 % ezcl=305) MONOCYTES RELATIVE PERCENT (BEAKER) (test 11 % cqat=670) EOSINOPHILS RELATIVE PERCENT (BEAKER) (test 3 % oggf=858) BASOPHILS RELATIVE PERCENT (BEAKER) (test 2 % cfqc=316) NEUTROPHILS ABSOLUTE COUNT (BEAKER) (test 2.67 K/ L 1.78-5.38 mozj=280) LYMPHOCYTES ABSOLUTE COUNT (BEAKER) (test 1.68 K/ L 1.32-3.57 aimx=950) MONOCYTES ABSOLUTE COUNT (BEAKER) (test 0.58 K/ L 0.30-0.82 kyei=695) EOSINOPHILS ABSOLUTE COUNT (BEAKER) (test 0.18 K/ L 0.04-0.54 iycs=809) BASOPHILS ABSOLUTE COUNT (BEAKER) (test 0.08 K/ L 0.01-0.08 tmza=263) IMMATURE GRANULOCYTES-RELATIVE PERCENT (BEAKER) 1 % 0-1 (test epzs=7920) TROPONIN [id number] 20:57:00 Test Item Value Reference Range Comments TROPONIN I (BEAKER) (test zwji=161) < ng/mL 0.00-0.03 Troponin I (TnI) levels [...] persistent tachyarrhythmia.CT BRAIN WITHOUT IV CONTRAST - [id number] 18:41:00Reason for exam:->Post tPAFINAL REPORT CT head [...] evaluation with MRI is recommended. Signed: Wilbert Paezort Verified Date/Time: 12/01/2017 18:41:06 Reading Location: [facility] Radiology Reading Room TROPONIN [id number] 17:00:00 Test Item Value Reference Range Comments TROPONIN I (BEAKER) (test izez=560) < ng/mL 0.00-0.03 Troponin I (TnI) levels [...] failure, acidosis, acute neurological disease, and persistent tachyarrhythmia.[id number] 16:23:00 Test Item Value Reference Range Comments POTASSIUM (BEAKER) (test mwcb=236) 3.7 meq/L 3.5-5.1 Check Serum Potassium level 2 hours after oral potassium replacement completed or 30 min after intravenous potassium replacement.[id number] 11:59:00 Test Item Value Reference Range Comments MAGNESIUM (BEAKER) (test 2.2 mg/dL 1.6-2.6 Specimen slightly hemolyzed llks=272) [id number] 11:59:00 Test Item Value Reference Range Comments PHOSPHORUS (BEAKER) (test 2.6 mg/dL 2.3-4.7 Specimen slightly hemolyzed tbaf=827) HEMOGLOBIN [id number] 11:49:00 Test Item Value Reference Range Comments HEMOGLOBIN A1C (BEAKER) (test kqfi=203) 6.0 % 4.3-6.1 TROPONIN [id number] 08:40:00 Test Item Value Reference Range Comments TROPONIN I (BEAKER) (test unpf=357) < ng/mL 0.00-0.03 Troponin I (TnI) levels [...] acidosis, acute neurological disease, and persistent tachyarrhythmia.LIPID [id number] 04:39:00 Test Item Value Reference Range Comments TRIGLYCERIDES (BEAKER) (test omio=319) 119 mg/dL CHOLESTEROL (BEAKER) (test skmb=260) 144 mg/dL HDL CHOLESTEROL (BEAKER) (test okro=883) 26 mg/dL LDL CHOLESTEROL CALCULATED (BEAKER) (test 94 mg/dL jcmr=463) Triglyceride Reference Range: Low Risk <150 Borderline 150- 199 High Risk 200-499 Very High Risk >=500Cholesterol Reference Range: Low Risk <200 Borderline 200-239 High Risk > 240HDL Cholesterol Reference Range: Low Risk >=60 High Risk <40LDL Cholesterol Reference Range: Optimal <100 Near Optimal 100-129 Borderline 130-159 High 160-189 Very High >=190 FastingBASIC METABOLIC [id number] 04:39:00 Test Item Value Reference Range Comments SODIUM (BEAKER) (test 136 meq/L 136-145 bisg=293) POTASSIUM (BEAKER) (test 3.7 meq/L 3.5-5.1 ikqv=598) CHLORIDE (BEAKER) (test 105 meq/L 98-107 qtgy=330) CO2 (BEAKER) (test 23 meq/L 22-29 lwct=698) BLOOD UREA NITROGEN 14 mg/dL 7-21 (BEAKER) (test ddhh=000) CREATININE (BEAKER) (test 0.86 mg/dL 0.57-1.25 iuxf=910) GLUCOSE RANDOM (BEAKER) 94 mg/dL 70-105 (test okpx=129) CALCIUM (BEAKER) (test 8.8 mg/dL 8.4-10.2 pvuv=752) EGFR (BEAKER) (test 88 mL/min/1.73 sq m ESTIMATED GFR IS NOT yrcn=3697) ACCURATE CREATININE CLEARANCE IN PREDICTING GLOMERULAR FILTRATION RATE. ESTIMATED GFR IS NOT APPLICABLE FOR DIALYSIS PATIENTS. FastingCBC W/PLT COUNT & AUTO [id number] 04:25:00 Test Item Value Reference Range Comments WHITE BLOOD CELL COUNT (BEAKER) (test pwaf=550) 5.0 K/ L 3.5-10.5 RED BLOOD CELL COUNT (BEAKER) (test gjwv=451) 4.03 M/ L 4.63-6.08 HEMOGLOBIN (BEAKER) (test sxqd=907) 11.3 GM/DL 13.7-17.5 HEMATOCRIT (BEAKER) (test youe=714) 35.2 % 40.1-51.0 MEAN CORPUSCULAR VOLUME (BEAKER) (test pqha=492) 87.3 fL 79.0-92.2 MEAN CORPUSCULAR HEMOGLOBIN (BEAKER) (test 28.0 pg 25.7-32.2 hkxw=823) MEAN CORPUSCULAR HEMOGLOBIN CONC (BEAKER) (test 32.1 GM/DL 32.3-36.5 lday=458) RED CELL DISTRIBUTION WIDTH (BEAKER) (test 16.9 % 11.6-14.4 wfof=202) PLATELET COUNT (BEAKER) (test usrw=768) 179 K/CU MM 150-450 MEAN PLATELET VOLUME (BEAKER) (test cpdn=807) 11.6 fL 9.4-12.4 NUCLEATED RED BLOOD CELLS (BEAKER) (test 0 /100 WBC 0-0 hhcu=843) NEUTROPHILS RELATIVE PERCENT (BEAKER) (test 48 % bmwo=065) LYMPHOCYTES RELATIVE PERCENT (BEAKER) (test 36 % jtrl=792) MONOCYTES RELATIVE PERCENT (BEAKER) (test 10 % ntaj=147) EOSINOPHILS RELATIVE PERCENT (BEAKER) (test 3 % vehl=647) BASOPHILS RELATIVE PERCENT (BEAKER) (test 2 % cfrm=164) NEUTROPHILS ABSOLUTE COUNT (BEAKER) (test 2.41 K/ L 1.78-5.38 zdur=914) LYMPHOCYTES ABSOLUTE COUNT (BEAKER) (test 1.80 K/ L 1.32-3.57 uuxt=173) MONOCYTES ABSOLUTE COUNT (BEAKER) (test 0.52 K/ L 0.30-0.82 mgmh=389) EOSINOPHILS ABSOLUTE COUNT (BEAKER) (test 0.17 K/ L 0.04-0.54 liha=964) BASOPHILS ABSOLUTE COUNT (BEAKER) (test 0.08 K/ L 0.01-0.08 upkp=885) IMMATURE GRANULOCYTES-RELATIVE PERCENT (BEAKER) 1 % 0-1 (test zgru=9860) HEMOGLOBIN [id number] 22:29:00 Test Item Value Reference Range Comments HEMOGLOBIN A1C (BEAKER) (test asjg=447) 5.9 % 4.3-6.1 VITAMIN B12 AND [id number] 18:47:00 Test Item Value Reference Range Comments VITAMIN B12 (BEAKER) (test tnoy=191) 1185 pg/mL 213-816 FOLATE (BEAKER) (test jlax=178) 2.3 ng/mL >=7.0 TROPONIN [id number] 18:18:00 Test Item Value Reference Range Comments TROPONIN I (BEAKER) (test htpo=974) < ng/mL 0.00-0.03 Troponin I (TnI) levels [...] acute neurological disease, and persistent tachyarrhythmia.BASIC METABOLIC [id number] 18:10:00 Test Item Value Reference Range Comments SODIUM (BEAKER) (test 136 meq/L 136-145 rzcz=172) POTASSIUM (BEAKER) (test 3.8 meq/L 3.5-5.1 kirn=371) CHLORIDE (BEAKER) (test 102 meq/L 98-107 wgmj=683) CO2 (BEAKER) (test 23 meq/L 22-29 yuvy=384) BLOOD UREA NITROGEN 10 mg/dL 7-21 (BEAKER) (test twyt=068) CREATININE (BEAKER) (test 0.88 mg/dL 0.57-1.25 cvga=081) GLUCOSE RANDOM (BEAKER) 102 mg/dL 70-105 (test dckx=922) CALCIUM (BEAKER) (test 9.3 mg/dL 8.4-10.2 yrzc=778) EGFR (BEAKER) (test 86 mL/min/1.73 sq m ESTIMATED GFR IS NOT aixt=3133) ACCURATE CREATININE CLEARANCE IN PREDICTING GLOMERULAR FILTRATION RATE. ESTIMATED GFR IS NOT APPLICABLE FOR DIALYSIS PATIENTS. CBC W/PLT COUNT & AUTO [id number] 17:52:00 Test Item Value Reference Range Comments WHITE BLOOD CELL COUNT (BEAKER) (test jtrg=937) 8.8 K/ L 3.5-10.5 RED BLOOD CELL COUNT (BEAKER) (test cysb=355) 4.53 M/ L 4.63-6.08 HEMOGLOBIN (BEAKER) (test jnol=946) 12.6 GM/DL 13.7-17.5 HEMATOCRIT (BEAKER) (test hntf=479) 39.4 % 40.1-51.0 MEAN CORPUSCULAR VOLUME (BEAKER) (test pusv=389) 87.0 fL 79.0-92.2 MEAN CORPUSCULAR HEMOGLOBIN (BEAKER) (test 27.8 pg 25.7-32.2 gxqk=855) MEAN CORPUSCULAR HEMOGLOBIN CONC (BEAKER) (test 32.0 GM/DL 32.3-36.5 jmks=655) RED CELL DISTRIBUTION WIDTH (BEAKER) (test 17.0 % 11.6-14.4 tsml=096) PLATELET COUNT (BEAKER) (test uzdr=507) 186 K/CU MM 150-450 MEAN PLATELET VOLUME (BEAKER) (test zqle=196) 10.5 fL 9.4-12.4 NUCLEATED RED BLOOD CELLS (BEAKER) (test 0 /100 WBC 0-0 wane=188) NEUTROPHILS RELATIVE PERCENT (BEAKER) (test 69 % pwth=262) LYMPHOCYTES RELATIVE PERCENT (BEAKER) (test 20 % nisk=144) MONOCYTES RELATIVE PERCENT (BEAKER) (test 9 % tnoi=645) EOSINOPHILS RELATIVE PERCENT (BEAKER) (test 1 % ltuu=350) BASOPHILS RELATIVE PERCENT (BEAKER) (test 1 % zkth=176) NEUTROPHILS ABSOLUTE COUNT (BEAKER) (test 6.12 K/ L 1.78-5.38 vobb=808) LYMPHOCYTES ABSOLUTE COUNT (BEAKER) (test 1.72 K/ L 1.32-3.57 dehh=618) MONOCYTES ABSOLUTE COUNT (BEAKER) (test 0.75 K/ L 0.30-0.82 csvh=202) EOSINOPHILS ABSOLUTE COUNT (BEAKER) (test 0.08 K/ L 0.04-0.54 ojcq=724) BASOPHILS ABSOLUTE COUNT (BEAKER) (test 0.09 K/ L 0.01-0.08 ipip=050) IMMATURE GRANULOCYTES-RELATIVE PERCENT (BEAKER) 1 % 0-1 (test vvll=7972) BASIC METABOLIC [id number] 07:51:00 Test Item Value Reference Range Comments SODIUM (BEAKER) (test 136 meq/L 136-145 oych=365) POTASSIUM (BEAKER) (test 4.0 meq/L 3.5-5.1 vumm=459) CHLORIDE (BEAKER) (test 106 meq/L 98-107 cudn=769) CO2 (BEAKER) (test 23 meq/L 22-29 vwyy=078) BLOOD UREA NITROGEN 15 mg/dL 7-21 (BEAKER) (test iywf=682) CREATININE (BEAKER) (test 0.92 mg/dL 0.57-1.25 uqii=163) GLUCOSE RANDOM (BEAKER) 92 mg/dL 70-105 (test lqju=162) CALCIUM (BEAKER) (test 8.7 mg/dL 8.4-10.2 osvn=886) EGFR (BEAKER) (test 82 mL/min/1.73 sq m ESTIMATED GFR IS NOT ykeq=2498) ACCURATE CREATININE CLEARANCE IN PREDICTING GLOMERULAR FILTRATION RATE. ESTIMATED GFR IS NOT APPLICABLE FOR DIALYSIS PATIENTS. CBC W/PLT COUNT & AUTO [id number] 05:55:00 Test Item Value Reference Range Comments WHITE BLOOD CELL COUNT (BEAKER) (test tply=153) 5.9 K/ L 3.5-10.5 RED BLOOD CELL COUNT (BEAKER) (test wgnl=253) 4.25 M/ L 4.63-6.08 HEMOGLOBIN (BEAKER) (test dvdf=124) 12.3 GM/DL 13.7-17.5 HEMATOCRIT (BEAKER) (test bhby=078) 37.8 % 40.1-51.0 MEAN CORPUSCULAR VOLUME (BEAKER) (test jehk=415) 88.9 fL 79.0-92.2 MEAN CORPUSCULAR HEMOGLOBIN (BEAKER) (test 28.9 pg 25.7-32.2 czii=529) MEAN CORPUSCULAR HEMOGLOBIN CONC (BEAKER) (test 32.5 GM/DL 32.3-36.5 vvcv=278) RED CELL DISTRIBUTION WIDTH (BEAKER) (test 15.9 % 11.6-14.4 poiy=516) PLATELET COUNT (BEAKER) (test amir=222) 173 K/CU MM 150-450 MEAN PLATELET VOLUME (BEAKER) (test ktor=070) 11.5 fL 9.4-12.4 NUCLEATED RED BLOOD CELLS (BEAKER) (test 0 /100 WBC 0-0 ysmd=813) NEUTROPHILS RELATIVE PERCENT (BEAKER) (test 48 % rvxh=833) LYMPHOCYTES RELATIVE PERCENT (BEAKER) (test 34 % kazb=005) MONOCYTES RELATIVE PERCENT (BEAKER) (test 12 % ozuo=296) EOSINOPHILS RELATIVE PERCENT (BEAKER) (test 4 % dply=283) BASOPHILS RELATIVE PERCENT (BEAKER) (test 2 % kfag=121) NEUTROPHILS ABSOLUTE COUNT (BEAKER) (test 2.85 K/ L 1.78-5.38 kyvo=212) LYMPHOCYTES ABSOLUTE COUNT (BEAKER) (test 2.02 K/ L 1.32-3.57 viiu=405) MONOCYTES ABSOLUTE COUNT (BEAKER) (test 0.68 K/ L 0.30-0.82 erzo=544) EOSINOPHILS ABSOLUTE COUNT (BEAKER) (test 0.25 K/ L 0.04-0.54 scsv=875) BASOPHILS ABSOLUTE COUNT (BEAKER) (test 0.09 K/ L 0.01-0.08 nsfv=722) IMMATURE GRANULOCYTES-RELATIVE PERCENT (BEAKER) 1 % 0-1 (test vvkr=5381) CBC W/PLT COUNT & AUTO [id number] 05:15:00 Test Item Value Reference Range Comments WHITE BLOOD CELL COUNT (BEAKER) (test ohbq=990) 5.4 K/ L 3.5-10.5 RED BLOOD CELL COUNT (BEAKER) (test aqnn=517) 4.34 M/ L 4.63-6.08 HEMOGLOBIN (BEAKER) (test jaat=215) 12.5 GM/DL 13.7-17.5 HEMATOCRIT (BEAKER) (test yyff=545) 39.0 % 40.1-51.0 MEAN CORPUSCULAR VOLUME (BEAKER) (test xert=259) 89.9 fL 79.0-92.2 MEAN CORPUSCULAR HEMOGLOBIN (BEAKER) (test 28.8 pg 25.7-32.2 wcwa=714) MEAN CORPUSCULAR HEMOGLOBIN CONC (BEAKER) (test 32.1 GM/DL 32.3-36.5 polp=682) RED CELL DISTRIBUTION WIDTH (BEAKER) (test 15.9 % 11.6-14.4 kzep=617) PLATELET COUNT (BEAKER) (test wmvd=497) 162 K/CU MM 150-450 MEAN PLATELET VOLUME (BEAKER) (test vwqx=135) 10.6 fL 9.4-12.4 NUCLEATED RED BLOOD CELLS (BEAKER) (test 0 /100 WBC 0-0 eaob=674) NEUTROPHILS RELATIVE PERCENT (BEAKER) (test 52 % hzgn=524) LYMPHOCYTES RELATIVE PERCENT (BEAKER) (test 31 % nedn=353) MONOCYTES RELATIVE PERCENT (BEAKER) (test 11 % eoem=325) EOSINOPHILS RELATIVE PERCENT (BEAKER) (test 4 % bqco=847) BASOPHILS RELATIVE PERCENT (BEAKER) (test 2 % yswy=911) NEUTROPHILS ABSOLUTE COUNT (BEAKER) (test 2.78 K/ L 1.78-5.38 xtdh=057) LYMPHOCYTES ABSOLUTE COUNT (BEAKER) (test 1.69 K/ L 1.32-3.57 ljed=883) MONOCYTES ABSOLUTE COUNT (BEAKER) (test 0.59 K/ L 0.30-0.82 dpoq=264) EOSINOPHILS ABSOLUTE COUNT (BEAKER) (test 0.21 K/ L 0.04-0.54 fijj=245) BASOPHILS ABSOLUTE COUNT (BEAKER) (test 0.09 K/ L 0.01-0.08 ytak=532) IMMATURE GRANULOCYTES-RELATIVE PERCENT (KYARA) 1 % 0-1 (test wbfr=1232) CT, BRAIN, WITHOUT [id number] 15:31:00FINAL REPORT CT head without contrast 03/12/2017 [...] indeterminate left caudate nucleus infarct. Signed: [facility] Verified Date/Time: 03/12/2017 15:31:17 Reading Location: [address] Neuro Reading Room TROPONIN [id number] 15:26:00 Test Item Value Reference Range Comments TROPONIN I (KYARA) (test qfey=884) 0.02 ng/mL 0.00-0.03 Troponin I (TnI) levels [...] acidosis, acute neurological disease, and persistent tachyarrhythmia.HEMOGLOBIN [id number] 12:38:00 Test Item Value Reference Range Comments HEMOGLOBIN A1C (KYARA) (test qrpn=867) 5.6 % 4.3-6.1 FastingRAD, CHEST, 1 VIEW, NON [id number] 10:06:00Reason for exam:->rule out pneumoniaShould this be [...] 10:06:57 Reading Location: [facility] Radiology Reading Room [id number] 09:08:00 Test Item Value Reference Range Comments HOMOCYSTEINE (BEAKER) (test jxuo=905) 11.8 umol/L 5.1-15.4 FastingCREATINE KINASE (CK), TOTAL AND [id number] 08:55:00 Test Item Value Reference Range Comments CREATINE KINASE TOTAL (BEAKER) (test pzue=580) 59 U/L 29-200 CREATINE KINASE-MB (BEAKER) (test tcrp=641) 1.0 ng/mL 0.0-6.6 CREATINE KINASE-MB INDEX (BEAKER) (test huvg=052) 1.7 % CK-MB Reference Range:<6.7 Normal6.7-10.0 Borderline>10.0 AbnormalFastingFastingTROPONIN [id number] 08:55:00 Test Item Value Reference Range Comments TROPONIN I (BEAKER) (test ycvl=083) < ng/mL 0.00-0.03 Troponin I (TnI) levels [...] acidosis, acute neurological disease, and persistent tachyarrhythmia.FastingLIPID [id number] 08:48:00 Test Item Value Reference Range Comments TRIGLYCERIDES (BEAKER) (test yulx=669) 151 mg/dL CHOLESTEROL (BEAKER) (test ayfx=606) 147 mg/dL HDL CHOLESTEROL (BEAKER) (test ehqh=419) 29 mg/dL LDL CHOLESTEROL CALCULATED (BEAKER) (test 88 mg/dL avge=772) Triglyceride Reference Range: Low Risk <150 Borderline 150- 199 High Risk 200-499 Very High Risk >=500Cholesterol Reference Range: Low Risk <200 Borderline 200-239 High Risk > 240HDL Cholesterol Reference Range: Low Risk >=60 High Risk <40LDL Cholesterol Reference Range: Optimal <100 Near Optimal 100-129 Borderline 130-159 High 160-189 Very High >=190 FastingBASIC METABOLIC [id number] 08:48:00 Test Item Value Reference Range Comments SODIUM (BEAKER) (test 136 meq/L 136-145 nrau=521) POTASSIUM (BEAKER) (test 4.4 meq/L 3.5-5.1 mobb=476) CHLORIDE (BEAKER) (test 104 meq/L 98-107 xpga=187) CO2 (BEAKER) (test 25 meq/L 22-29 iprc=695) BLOOD UREA NITROGEN 15 mg/dL 7-21 (BEAKER) (test butv=382) CREATININE (BEAKER) (test 0.87 mg/dL 0.57-1.25 cmcg=645) GLUCOSE RANDOM (BEAKER) 102 mg/dL 70-105 (test vixv=624) CALCIUM (BEAKER) (test 8.9 mg/dL 8.4-10.2 kpfz=561) EGFR (BEAKER) (test 87 mL/min/1.73 sq m ESTIMATED GFR IS NOT vxxy=6886) ACCURATE CREATININE CLEARANCE IN PREDICTING GLOMERULAR FILTRATION RATE. ESTIMATED GFR IS NOT APPLICABLE FOR DIALYSIS PATIENTS. FastingCBC W/PLT COUNT & AUTO [id number] 08:24:00 Test Item Value Reference Range Comments WHITE BLOOD CELL COUNT (BEAKER) (test vmgo=035) 5.7 K/ L 3.5-10.5 RED BLOOD CELL COUNT (BEAKER) (test axwp=445) 4.23 M/ L 4.63-6.08 HEMOGLOBIN (BEAKER) (test ippw=923) 12.3 GM/DL 13.7-17.5 HEMATOCRIT (BEAKER) (test hwmv=756) 37.9 % 40.1-51.0 MEAN CORPUSCULAR VOLUME (BEAKER) (test imwg=590) 89.6 fL 79.0-92.2 MEAN CORPUSCULAR HEMOGLOBIN (BEAKER) (test 29.1 pg 25.7-32.2 lxdh=650) MEAN CORPUSCULAR HEMOGLOBIN CONC (BEAKER) (test 32.5 GM/DL 32.3-36.5 pvpu=546) RED CELL DISTRIBUTION WIDTH (BEAKER) (test 15.9 % 11.6-14.4 izkk=953) PLATELET COUNT (BEAKER) (test pstr=084) 156 K/CU MM 150-450 MEAN PLATELET VOLUME (BEAKER) (test qawa=298) 10.2 fL 9.4-12.4 NUCLEATED RED BLOOD CELLS (BEAKER) (test 0 /100 WBC 0-0 ttnu=238) NEUTROPHILS RELATIVE PERCENT (BEAKER) (test 47 % puuq=867) LYMPHOCYTES RELATIVE PERCENT (BEAKER) (test 37 % zjxq=397) MONOCYTES RELATIVE PERCENT (BEAKER) (test 12 % twka=408) EOSINOPHILS RELATIVE PERCENT (BEAKER) (test 3 % mkhx=769) BASOPHILS RELATIVE PERCENT (BEAKER) (test 2 % uzwx=977) NEUTROPHILS ABSOLUTE COUNT (BEAKER) (test 2.66 K/ L 1.78-5.38 fxgo=194) LYMPHOCYTES ABSOLUTE COUNT (BEAKER) (test 2.09 K/ L 1.32-3.57 qnkw=896) MONOCYTES ABSOLUTE COUNT (BEAKER) (test 0.70 K/ L 0.30-0.82 emux=284) EOSINOPHILS ABSOLUTE COUNT (BEAKER) (test 0.15 K/ L 0.04-0.54 wcdu=032) BASOPHILS ABSOLUTE COUNT (BEAKER) (test 0.09 K/ L 0.01-0.08 doys=237) IMMATURE GRANULOCYTES-RELATIVE PERCENT (BEAKER) 1 % 0-1 (test wrca=8199) TSH/FREE T4 IF [id number] 03:38:00 Test Item Value Reference Range Comments THYROID STIMULATING HORMONE (BEAKER) (test 2.01 uIU/mL 0.35-4.94 qcuy=190) VITAMIN B12 AND [id number] 03:38:00 Test Item Value Reference Range Comments VITAMIN B12 (BEAKER) (test lctb=684) 1008 pg/mL 213-816 FOLATE (BEAKER) (test hjba=906) 8.4 ng/mL >=7.0 CREATINE KINASE (CK), TOTAL AND [id number] 01:03:00 Test Item Value Reference Range Comments CREATINE KINASE TOTAL (BEAKER) (test jxuc=984) 66 U/L 29-200 CREATINE KINASE-MB (BEAKER) (test okpf=515) 1.4 ng/mL 0.0-6.6 CREATINE KINASE-MB INDEX (BEAKER) (test jdlr=888) 2.1 % CK-MB Reference Range:<6.7 Normal6.7-10.0 Borderline>10.0 AbnormalTROPONIN [id number] 01:03:00 Test Item Value Reference Range Comments TROPONIN I (BEAKER) (test zyvy=341) 0.02 ng/mL 0.00-0.03 Troponin I (TnI) levels [...] acute neurological disease, and persistent tachyarrhythmia.BASIC METABOLIC [id number] 00:56:00 Test Item Value Reference Range Comments SODIUM (BEAKER) (test 136 meq/L 136-145 avae=298) POTASSIUM (BEAKER) (test 3.9 meq/L 3.5-5.1 kjbw=369) CHLORIDE (BEAKER) (test 104 meq/L 98-107 sbvh=174) CO2 (BEAKER) (test 24 meq/L 22-29 nmnx=242) BLOOD UREA NITROGEN 14 mg/dL 7-21 (BEAKER) (test bnvl=633) CREATININE (BEAKER) (test 0.87 mg/dL 0.57-1.25 mxgj=829) GLUCOSE RANDOM (BEAKER) 104 mg/dL 70-105 (test aqld=742) CALCIUM (BEAKER) (test 9.2 mg/dL 8.4-10.2 xerx=796) EGFR (BEAKER) (test 87 mL/min/1.73 sq m ESTIMATED GFR IS NOT egxe=0327) ACCURATE CREATININE CLEARANCE IN PREDICTING GLOMERULAR FILTRATION RATE. ESTIMATED GFR IS NOT APPLICABLE FOR DIALYSIS PATIENTS. PROTHROMBIN TIME/[id number] 00:27:00 Test Item Value Reference Range Comments PROTIME (BEAKER) (test kija=940) 17.2 seconds 11.7-14.7 INR (BEAKER) (test yrdm=052) 1.4 <=5.9 RECOMMENDED COUMADIN/WARFARIN INR THERAPY RANGESSTANDARD DOSE: 2.0 - 3.0 Includes: PROPHYLAXIS forvenous thrombosis, systemic embolization; TREATMENT for venous thrombosis and/or pulmonary embolus.HIGH RISK: Target INR is 2.5-3.5 for patients with mechanical heart valves.CBC W/PLT COUNT & AUTO [id number] 00:01:00 Test Item Value Reference Range Comments WHITE BLOOD CELL COUNT (BEAKER) (test yzma=363) 8.2 K/ L 3.5-10.5 RED BLOOD CELL COUNT (BEAKER) (test yupi=396) 4.57 M/ L 4.63-6.08 HEMOGLOBIN (BEAKER) (test imos=552) 13.2 GM/DL 13.7-17.5 HEMATOCRIT (BEAKER) (test wymi=113) 40.5 % 40.1-51.0 MEAN CORPUSCULAR VOLUME (BEAKER) (test xqrt=669) 88.6 fL 79.0-92.2 MEAN CORPUSCULAR HEMOGLOBIN (BEAKER) (test 28.9 pg 25.7-32.2 hror=536) MEAN CORPUSCULAR HEMOGLOBIN CONC (BEAKER) (test 32.6 GM/DL 32.3-36.5 yvku=030) RED CELL DISTRIBUTION WIDTH (BEAKER) (test 15.9 % 11.6-14.4 cedp=227) PLATELET COUNT (BEAKER) (test ddqy=668) 198 K/CU MM 150-450 MEAN PLATELET VOLUME (BEAKER) (test pawu=855) 11.2 fL 9.4-12.4 NUCLEATED RED BLOOD CELLS (BEAKER) (test 0 /100 WBC 0-0 bpdi=700) NEUTROPHILS RELATIVE PERCENT (BEAKER) (test 57 % ojwo=716) LYMPHOCYTES RELATIVE PERCENT (BEAKER) (test 28 % lhoj=171) MONOCYTES RELATIVE PERCENT (BEAKER) (test 10 % dpop=557) EOSINOPHILS RELATIVE PERCENT (BEAKER) (test 3 % jcsh=264) BASOPHILS RELATIVE PERCENT (BEAKER) (test 1 % byhx=921) NEUTROPHILS ABSOLUTE COUNT (BEAKER) (test 4.66 K/ L 1.78-5.38 wksv=710) LYMPHOCYTES ABSOLUTE COUNT (BEAKER) (test 2.29 K/ L 1.32-3.57 fbtg=479) MONOCYTES ABSOLUTE COUNT (BEAKER) (test 0.81 K/ L 0.30-0.82 hmsg=743) EOSINOPHILS ABSOLUTE COUNT (BEAKER) (test 0.25 K/ L 0.04-0.54 gqbp=860) BASOPHILS ABSOLUTE COUNT (BEAKER) (test 0.10 K/ L 0.01-0.08 xszk=455) IMMATURE GRANULOCYTES-RELATIVE PERCENT (BEAKER) 1 % 0-1 (test jwxo=4550)
--- NOTE | 2019-02-20 12:50 | RAD REPORT ---
EXAM DESCRIPTION: RAD - Chest Single View - 02/20/2019 12:45 pm CLINICAL HISTORY: COUGH Chest pain. COMPARISON: Chest Pa And Lat (2 Views) dated 11/22/2018; Chest Pa And Lat (2 Views) dated 10/24/2018; Chest Single View dated 08/18/2018; Chest Single View dated 06/06/2018; Lung Cancer Screening CT W/O swetha ed 01/24/2019 FINDINGS: Portable technique limits examination quality. Mild diffuse COPD is present. Apical pleural thickening on the right is present unchanged. The heart is normal in size. Dual lead pacer device is present. IMPRESSION: No acute intrathoracic process suspected.
[2019-02-20] MEDS ORDERED: NA CHLORIDE 0.9% 1,000 ML ONE ×2 (13:13→14:26)
[2019-02-20 13:22] LABS: Absolute Lymphocytes (CBC) 1.4 K/uL (0.7-4.9); Basophils % 1.6 % (0-1.3); Hematocrit 34.7 % (39.6-49.0); Lymphocytes % 24.2 % (15.3-44.8); MPV 8.8 fL (7.6-11.3); RBC Red Blood Cell Count 4.65 M/uL (4.33-5.43)
[2019-02-20 13:23] LABS: Protime INR 1.08
--- NOTE | 2019-02-20 13:32 | EDPHYS ---
Physician Documentation [facility] Name: Maurice Morfin Age: 69 yrs Sex: Male : 1950 Arrival Date: 02/20/2019 Time: 12:24 Bed 8 Private MD: ED Physician Caio Cruz HPI: 02/20 13:26 This 69 yrs old Male presents to ER via EMS with complaints of Dizziness, low john paul BP. 13:26 The patient presents with dizziness, feeling faint, generalized weakness, john paul lightheadedness. Onset: The symptoms/episode began/occurred 2 day(s) ago. Context: occurred at home, occurred while the patient was walking. Modifying factors: The symptoms are alleviated by nothing, the symptoms are aggravated by nothing. Associated signs and symptoms: Pertinent positives: near-syncope. Severity of symptoms: At their worst the symptoms were mild in the emergency department the symptoms are unchanged. Patient's baseline: Neuro: alert and fully oriented. The patient has not experienced similar symptoms in the past. Historical: - Allergies: 12:30 Codeine; ss - Home Meds: 14:06 Flomax 0.4 mg Oral cp24 1 cap once daily [Active]; clopidogrel 75 mg Oral tab 1 tab jl7 once daily [Active]; atorvastatin 80 mg Oral tab 1 tab once daily [Active]; gabapentin 300 mg Oral cap 1 cap 3 times per day [Active]; losartan-hydrochlorothiazide 100-25 mg Oral tab [Active]; sertraline 50 mg oral tab [Active]; - PMHx: 12:30 Cholelithiasis; Hernia; enlarged prostate; Dementia; CVA; Hypertension; COPD; [place]; PVD; ss TIA; - PSHx: 12:30 Heart stents; Leg stents; leg bypass; Pacemaker; Cholecystectomy; ss - Immunization history:: Adult Immunizations up to date. - Social history:: Smoking status: Patient/guardian denies using tobacco. - Ebola Screening: : Patient denies exposure to infectious person Patient denies travel to an Ebola-affected area in the 21 days before illness onset. - Family history:: not pertinent. ROS: 13:26 Constitutional: Negative for fever, chills, and weight loss, Eyes: Negative for injury, john paul pain, redness, and discharge, ENT: Negative for injury, pain, and discharge, Neck: Negative for injury, pain, and swelling, Respiratory: Negative for shortness of breath, cough, wheezing, and pleuritic chest pain, Abdomen/GI: Negative for abdominal pain, nausea, vomiting, diarrhea, and constipation, Back: Negative for injury and pain, : Negative for injury, bleeding, discharge, and swelling, MS/Extremity: Negative for injury and deformity, Skin: Negative for injury, rash, and discoloration, Psych: Negative for depression, anxiety, suicide ideation, homicidal ideation, and hallucinations, Allergy/Immunology: Negative for hives, rash, and allergies, Endocrine: Negative for neck swelling, polydipsia, polyuria, polyphagia, and marked weight changes, Hematologic/Lymphatic: Negative for swollen nodes, abnormal bleeding, and unusual bruising. 13:26 Cardiovascular: Positive for chest pain, palpitations. 13:26 Respiratory: Positive for cough, with no reported sputum. Exam: 13:26 Constitutional: This is a well developed, well nourished patient who is awake, alert, john paul and in no acute distress. Head/Face: Normocephalic, atraumatic. Eyes: Pupils equal round and reactive to light, extra-ocular motions intact. Lids and lashes normal. Conjunctiva and sclera are non-icteric and not injected. Cornea within normal limits. Periorbital areas with no swelling, redness, or edema. ENT: Nares patent. No nasal discharge, no septal abnormalities noted. Tympanic membranes are normal and external auditory canals are clear. Oropharynx with no redness, swelling, or masses, exudates, or evidence of obstruction, uvula midline. Mucous membranes moist. Neck: Trachea midline, no thyromegaly or masses palpated, and no cervical lymphadenopathy. Supple, full range of motion without nuchal rigidity, or vertebral point tenderness. No Meningismus. Chest/axilla: Normal chest wall appearance and motion. Nontender with no deformity. No lesions are appreciated. Cardiovascular: Regular rate and rhythm with a normal S1 and S2. No gallops, murmurs, or rubs. Normal PMI, no JVD. No pulse deficits. Respiratory: Lungs have equal breath sounds bilaterally, clear to auscultation and percussion. No rales, rhonchi or wheezes noted. No increased work of breathing, no retractions or nasal flaring. Abdomen/GI: Soft, non-tender, with normal bowel sounds. No distension or tympany. No guarding or rebound. No evidence of tenderness throughout. Back: No spinal tenderness. No costovertebral tenderness. Full range of motion. Male : Normal genitalia with no discharge or lesions. Skin: Warm, dry with normal turgor. Normal color with no rashes, no lesions, and no evidence of cellulitis. MS/ Extremity: Pulses equal, no cyanosis. Neurovascular intact. Full, normal range of motion. Psych: Awake, alert, with orientation to person, place and time. Behavior, mood, and affect are within normal limits. 13:26 Neuro: Orientation: is normal, appropriate for stated age, no acute changes, Mentation: is normal, appropriate for stated age, no acute changes, Memory: is normal, appropriate for stated age, no acute changes, Cranial nerves: grossly normal, is grossly normal based on the patient's age, no acute changes, Cerebellar function: is grossly normal, is grossly normal based on the patient's age, no acute changes, Motor: is normal, is grossly normal based on the patient's age, Gait: not applicable Vital Signs: 12:30 BP 132 / 65; Pulse 90; Resp 21; Temp 98.1(O); Pulse Ox 100% on R/A; Weight 67.13 kg; ss Height 5 ft. 9 in. (175.26 cm); 13:00 BP 94 / 56; Pulse 91; Resp 21 S; Pulse Ox 100% on R/A; jl7 13:30 BP 91 / 52; Pulse 84; Resp 19 S; Pulse Ox 99% on R/A; jl7 14:06 BP 99 / 62; Pulse 80; Resp 17 S; Pulse Ox 100% on R/A; jl7 15:13 BP 129 / 71; Pulse 74; Resp 21 S; Pulse Ox 100% on R/A; jl7 15:33 BP 130 / 65; Pulse 74; Resp 16 S; Pulse Ox 100% on R/A; Pain 0/10; jl7 12:30 Body Mass Index 21.86 (67.13 kg, 175.26 cm) MDM: 12:31 Patient medically screened. [facility] 13:26 Data reviewed: vital signs, nurses notes, lab test result(s), EKG, radiologic studies, [facility] CT scan, plain films. 02/20 12:32 Order name: Basic Metabolic Panel [facility] 02/20 12:32 Order name: CBC with Diff [facility] 02/20 12:32 Order name: LFT's [facility] 02/20 12:32 Order name: Magnesium [facility] 02/20 12:32 Order name: NT PRO-BNP [facility] 02/20 12:32 Order name: PT-INR [facility] 02/20 12:32 Order name: Troponin (emerg Dept Use Only) [facility] 02/20 12:32 Order name: Lipase [facility] 02/20 13:25 Order name: CBC with Automated Diff; Complete Time: 14:03 EDMS 02/20 13:27 Order name: Protime (+INR); Complete Time: 13:33 EDMS 02/20 13:38 Order name: Basic Metabolic Panel; Complete Time: 14:03 EDMS 02/20 13:38 Order name: Liver (Hepatic) Function; Complete Time: 14:03 EDMS 02/20 13:38 Order name: Troponin (Emerg Dept Use Only); Complete Time: 14:03 EDMS 02/20 13:38 Order name: NT PRO-BNP; Complete Time: 14:03 EDAL 02/20 12:32 Order name: XRAY Chest (1 view) [facility] 02/20 12:32 Order name: EKG; Complete Time: 12:34 [facility] 02/20 12:32 Order name: Cardiac monitoring; Complete Time: 12:32 [facility] 02/20 12:32 Order name: EKG - Nurse/Tech; Complete Time: 12:32 [facility] 02/20 12:32 Order name: IV Saline Lock; Complete Time: 12:33 [facility] 02/20 12:32 Order name: Labs collected and sent; Complete Time: 13:10 [facility] 02/20 12:32 Order name: O2 Per Protocol; Complete Time: 12:33 [facility] 02/20 12:32 Order name: O2 Sat Monitoring; Complete Time: 13:16 [facility] 02/20 13:09 Order name: RAD; Complete Time: 13:33 EDMS 02/20 13:38 Order name: Magnesium; Complete Time: 14:03 EDMS 02/20 13:38 Order name: Lipase; Complete Time: 14:03 EDMS 02/20 13:43 Order name: CBC Smear Scan; Complete Time: 14:03 EDMS Administered Medications: 13:16 Drug: NS 0.9% 1000 ml Route: IV; Rate: 125 ml/hr; Site: right hand; 7 15:34 Follow up: Response: No adverse reaction; IV Status: Infusion continued upon admission; [facility] IV Intake: 275ml 14:07 Drug: NS 0.9% 500 ml Route: IV; Rate: bolus; Site: right hand; 7 14:45 Follow up: Response: No adverse reaction; IV Status: Completed infusion; IV Intake: jl7 500ml 14:28 Drug: NS 0.9% 1000 ml Route: IV; Rate: 1 bolus; Site: right hand; 7 15:10 Follow up: Response: No adverse reaction; IV Status: Completed infusion; IV Intake: jl7 1000ml Disposition: 02/20/19 13:32 Hospitalization ordered by Татьяна Azevedo for Inpatient Admission. Preliminary diagnosis are Dizziness and giddiness, Weakness, Hypotension, Chest pain, unspecified. - Bed requested for Telemetry/MedSurg (Inpatient). - Status is Inpatient Admission. jl - Condition is Stable. - Problem is new. - Symptoms have improved. UTI on Admission? No Signatures: Dispatcher [employer] EDAL Caio Cruz MD MD cha Smirch, Shelby, RN RN Sascha Thomas RN RN jl7 Corrections: (The following items were deleted from the chart) 14:58 13:32 Hospitalization Ordered by Татьяна Azevedo MD for Inpatient Admission. Preliminary ss diagnosis is Dizziness and giddiness; Weakness; Hypotension; Chest pain, unspecified. Bed requested for Telemetry/MedSurg (Inpatient). Status is Inpatient Admission. Condition is Stable. Problem is new. Symptoms have improved. UTI on Admission? No. john paul 15:36 14:58 02/20/2019 13:32 Hospitalization Ordered by Татьяна Azevedo MD for Inpatient [facility] Admission. Preliminary diagnosis is Dizziness and giddiness; Weakness; Hypotension; Chest pain, unspecified. Bed requested for Telemetry/MedSurg (Inpatient). Status is Inpatient Admission. Condition is Stable. Problem is new. Symptoms have improved. UTI on Admission? No. ss
--- NOTE | 2019-02-20 13:32 | ER ---
Nurse's Notes [facility] Name: Maurice Morfin Age: 69 yrs Sex: Male : 1950 Arrival Date: 02/20/2019 Time: 12:24 Bed 8 Private MD: Diagnosis: Dizziness and giddiness;Weakness;Hypotension;Chest pain, unspecified Presentation: 02/20 12:26 Presenting complaint: Patient states: Dizziness and low BP that began 1 hour ago. Pt ss reports his BP was high this AM so he went ahead and took his daily medication regimen as prescribed. Pt states that an hour or so later he became dizzy, and son checked VS which was 87/63 HR 117 and then 82/53 HR 96. Pt reports feeling a little bit better now, but still feels dizzy and has mild CP. Transition of care: patient was not received from another setting of care. Onset of symptoms was February 20, 2019. Risk Assessment: Do you want to hurt yourself or someone else? Patient reports no desire to harm self or others. Initial Sepsis Screen: Does the patient meet any 2 criteria? RR > 20 per min. Does the patient have a suspected source of infection? No. Patient's initial sepsis screen is negative. Care prior to arrival: IV initiated. 20 GA, in the right hand, Glucose check: 115. 12:26 Method Of Arrival: [facility] 12:26 Acuity: WAYLON 3 ss Historical: - Allergies: 12:30 Codeine; ss - Home Meds: 14:06 Flomax 0.4 mg Oral cp24 1 cap once daily [Active]; clopidogrel 75 mg Oral tab 1 tab jl7 once daily [Active]; atorvastatin 80 mg Oral tab 1 tab once daily [Active]; gabapentin 300 mg Oral cap 1 cap 3 times per day [Active]; losartan-hydrochlorothiazide 100-25 mg Oral tab [Active]; sertraline 50 mg oral tab [Active]; - PMHx: 12:30 Cholelithiasis; Hernia; enlarged prostate; Dementia; CVA; Hypertension; COPD; [place]; PVD; ss TIA; - PSHx: 12:30 Heart stents; Leg stents; leg bypass; Pacemaker; Cholecystectomy; ss - Immunization history:: Adult Immunizations up to date. - Social history:: Smoking status: Patient/guardian denies using tobacco. - Ebola Screening: : Patient denies exposure to infectious person Patient denies travel to an Ebola-affected area in the 21 days before illness onset. - Family history:: not pertinent. Screenin:00 Abuse screen: Denies threats or abuse. Denies injuries from another. Nutritional jl7 screening: No deficits noted. Tuberculosis screening: No symptoms or risk factors identified. Fall Risk IV access (20 points). Total Gudino Fall Scale indicates No Risk (0-24 pts). Assessment: 12:45 General: Appears in no apparent distress. uncomfortable, Behavior is calm, cooperative, jl7 appropriate for age. Pain: Denies pain. Neuro: Level of Consciousness is awake, alert, obeys commands, Oriented to person, place, time, situation. Cardiovascular: Reports lightheadedness, Heart tones present Patient's skin is warm and dry. Respiratory: Airway is patent Respiratory effort is even, unlabored, Respiratory pattern is regular, symmetrical. GI: No signs and/or symptoms were reported involving the gastrointestinal system. : No signs and/or symptoms were reported regarding the genitourinary system. EENT: No signs and/or symptoms were reported regarding the EENT system. Derm: Skin is pink, warm \T\ dry. Musculoskeletal: No signs and/or symptoms reported regarding the musculoskeletal system. 13:15 Reassessment: Pt sitting up in bed, BP reading of 67/55, pt reports feeling jl7 lightheaded, BP rechecked with reading of 92/45, laid pt down supine and recheck BP with reading of 94/56, ERD notified, new orders received. 14:10 Reassessment: Patient appears in no apparent distress at this time. No changes from jl7 previously documented assessment. Patient and/or family updated on plan of care and expected duration. Pain level reassessed. Patient is alert, oriented x 3, equal unlabored respirations, skin warm/dry/pink. 14:20 Reassessment: Sat pt straight up in bed to attempt to obtain urine and pt reports jl7 feeling lightheaded, ERD notified, new orders received. 15:13 Reassessment: Bolus done infusing, sat pt up in bed, pt denies feeling lightheaded, Pt jl7 reports symptoms have improved, BP reading of 129/71. Vital Signs: 12:30 BP 132 / 65; Pulse 90; Resp 21; Temp 98.1(O); Pulse Ox 100% on R/A; Weight 67.13 kg; Height 5 ft. 9 in. (175.26 cm); 13:00 BP 94 / 56; Pulse 91; Resp 21 S; Pulse Ox 100% on R/A; jl7 13:30 BP 91 / 52; Pulse 84; Resp 19 S; Pulse Ox 99% on R/A; jl7 14:06 BP 99 / 62; Pulse 80; Resp 17 S; Pulse Ox 100% on R/A; jl7 15:13 BP 129 / 71; Pulse 74; Resp 21 S; Pulse Ox 100% on R/A; jl7 15:33 BP 130 / 65; Pulse 74; Resp 16 S; Pulse Ox 100% on R/A; Pain 0/10; jl7 12:30 Body Mass Index 21.86 (67.13 kg, 175.26 cm) ED Course: 12:24 Patient arrived in ED. jl7 12:29 Triage completed. 12:30 Arm band placed on right wrist. 12:31 Caio Cruz MD is Attending Physician. john paul 12:57 Sascha Thomas RN is Primary Nurse. jl7 13:00 Patient has correct armband on for positive identification. Placed in gown. Bed in low jl7 position. Call light in reach. Side rails up X 1. creative consultant on. Pulse ox on. NIBP on. Warm blanket given. 13:00 Maintain EMS IV. Dressing intact. Good blood return noted. Site clean \T\ dry. Gauge \T\ jl 7 site: 20 right hand. 13:16 Initial lab(s) drawn, by nm, sent to lab. 7 13:31 Татьяна Azevedo MD is Hospitalizing Provider. john paul 15:33 No provider procedures requiring assistance completed. Patient admitted, IV remains in jl7 place. intact, No redness/swelling at site. Administered Medications: 13:16 Drug: NS 0.9% 1000 ml Route: IV; Rate: 125 ml/hr; Site: right hand; jl7 15:34 Follow up: Response: No adverse reaction; IV Status: Infusion continued upon admission; jl7 IV Intake: 275ml 14:07 Drug: NS 0.9% 500 ml Route: IV; Rate: bolus; Site: right hand; jl7 14:45 Follow up: Response: No adverse reaction; IV Status: Completed infusion; IV Intake: jl7 500ml 14:28 Drug: NS 0.9% 1000 ml Route: IV; Rate: 1 bolus; Site: right hand; jl7 15:10 Follow up: Response: No adverse reaction; IV Status: Completed infusion; IV Intake: jl7 1000ml Intake: 14:45 IV: 500ml; Total: 500ml. jl7 15:10 IV: 1000ml; Total: 1500ml. jl7 15:34 IV: 275ml; Total: 1775ml. jl7 Outcome: 13:32 Decision to Hospitalize by Provider. john paul 15:33 Admitted to Tele accompanied by tech, via stretcher, room 402, with chart, Report jl7 called to JAVAN Bellamy 15:33 Condition: stable 15:33 Discharge instructions given to patient, Instructed on the need for admit, Demonstrated understanding of instructions. 15:36 Patient left the ED. jl7 Signatures: Caio Cruz MD MD cha Smirch, Shelby, Sascha Brown RN, RN RN jl7
[2019-02-20 13:37] LABS: ALT/SGPT 18 U/L (12-78); AST/SGOT 16 U/L (15-37); Albumin 3.8 g/dL (3.4-5.0); Alkaline Phosphatase 95 U/L (45-117); BUN Blood Urea Nitrogen 18 mg/dL (7-18); Bicarbonate 27 mmol/L (21-32); Bilirubin Direct 0.2 mg/dL (0-0.2); Bilirubin Total 0.6 mg/dL (0.2-1.0); Glucose Level 110 mg/dL (74-106); Lipase 113 U/L (73-393); Magnesium 1.8 mg/dL (1.8-2.4); NT PRO-BNP 198 pg/mL (<125); Potassium 3.7 mmol/L (3.5-5.1); Protein, Total 7.5 g/dL (6.4-8.2); Sodium Level 132 mmol/L (136-145); Troponin (Emerg Dept Use Only) < 0.02 ng/mL (0.0-0.045)
[2019-02-20 13:42] LABS: Anisocytosis 3+; Blood Morphology Comment NOTED (NOT SEEN); Platelet Estimate ADEQ; Urine White Blood Cell Casts OK
[2019-02-20 13:43] LABS: Ovalocytes 1+
[2019-02-20] MEDS ORDERED: ONDANSETRON 4 MG/2 ML VIAL IV PRN (15:29)
[2019-02-20] MEDS ORDERED: ACETAMINOPHEN 500 MG TAB PO PRN (15:29)
[2019-02-20] MEDS ORDERED: MAGNESIUM SULFATE 1 gm IVPB 1 GM/100 ML BAG IV ONE (15:30)
[2019-02-20] MEDS ORDERED: POTASSIUM CL SA 10 MEQ TAB PO ONE (15:30)
--- NOTE | 2019-02-20 16:02 | EKG ---
Test Date: 2019-02-20 Test Time: 12:19:41 Ground Defence Officer: LIZBETH MEASUREMENT RESULTS: Intervals: Rate: 97 WA: 150 QRSD: 72 QT: 346 QTc: 439 [place]: P: 82 WA: 150 QRS: 62 T: 81 INTERPRETIVE STATEMENTS: Sinus rhythm with premature supraventricular complexes Nonspecific ST abnormality Abnormal ECG Compared to ECG 08/18/2018 11:22:05 No significant changes Electronically Signed On 02-20-19 16:01:12 ORE DIGGER by Epifanio Gonzalez
[2019-02-20] MEDS: NA CHLORIDE 0.9% 1,000 ML IV SCH (16:57)
[2019-02-20 17:45] VITALS: BMI 21.8
[2019-02-20 17:56] LABS: Urine Appearance CLEAR; Urine Bilirubin NEGATIVE (NEG); Urine Blood NEGATIVE (NEG); Urine Color YELLOW; Urine Glucose NEGATIVE (NEG); Urine Protein NEGATIVE (NEG); Urine Specific Gravity <=1.005 (1.005-1.030); Urine Urobilinogen 0.2 mg/dL (0.2-1.0)
[2019-02-20 18:27] LABS: Urine Bacteria <20 /HPF (NONE SEEN); Urine Culture Reflex Order NOT NEEDED; Urine RBC <5 /HPF (NONE SEEN)
[2019-02-20] MEDS: GABAPENTIN 300 MG CAP PO SCH (20:03)
[2019-02-20] MEDS ORDERED: TEMAZEPAM 15 MG CAP PO PRN (20:09)
[2019-02-20] MEDS ORDERED: ATORVASTATIN 80 MG TAB PO SCH (21:00)
[2019-02-21] MEDS: NA CHLORIDE 0.9% 1,000 ML IV SCH ×2 (01:44→11:29)
--- NOTE | 2019-02-21 02:18 | HP ---
Date of Admission: 02/20/2019 Code Status: Full. Chief Complaint: Generalized weakness, dizziness. Primary Care Physician: Dr. Thomas. 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 Patient has been experiencing some generalized weakness, some decreased p.o. intake, has been complaining of generalized weakness and dizziness, es pecially with change in position. Patient states that he usually checks his blood pressure before ta tricia his medications. He is on losartan/hydrochlorothiazide combo pill and Flomax and he stated that after his 2 blood pressure medications this morning, he did become hypotensive with the systolic in the 80s. Patient came into the ER for further evaluation. His symptoms are constant, moderate, prog ressively worsening. He otherwise denies any nausea, vomiting, fever, chills, or ill contacts. No d iarrhea. Patient's systolics blood pressure in the 130s, however, did drop down to the 90s. He was given 2 L normal saline bolus. Workup revealed normal WBC count. Hemoglobin was 11, but that is declan und his baseline. Chest x-ray was clear, did show mild diffuse COPD. Patient was then referred for admission. When seen in the ER, he was awake, alert, oriented x3, in some mild distress. Past Medical History: COPD, skin cancer, spinal meningitis, VT, stroke, benign prostatic hyperplasia , hypertension, dementia. Past Surgical History: Hernia repair, pacemaker placement, stent placement in the heart and the righ t leg, hernia repair on the left side, skin cancer removal from the left arm and cholecystectomy. Allergies: NO KNOWN DRUG ALLERGIES. Medications: List reviewed. Social History: Patient is a daily smoker. Denies any alcohol use or illicit drug use. Lives at [facility] with his son and his brother. Does need some assistance with his activities of daily living. Family History: Mother has heart disease, hypertension, stroke, cancer, ovarian cancer. Father has lung disease. Review of Systems: Ten-point system reviewed, negative except as per HPI. Physical Examination: Vital Signs: Temperature 98.1, heart rate 91, blood pressure 94/56 respirations 21, O2 of 100% on ro om air. General: Awake, alert, oriented x3. Elderly male, in some mild distress, appears older than stated age, ill-appearing. HEENT: Normocephalic, atraumatic. PERRLA. EOMI. Dry mucous membranes. Oropharynx is clear. Poor dentition. Conjunctivae are anicteric. Neck: Supple. No JVD. Trachea midline. CV: S1, S2. Regular rate and rhythm. Peripheral pulses weak bilaterally. Respiratory: Breath sounds are normal. No wheezing or stridor. No use of accessory muscles. Gastrointestinal: Abdomen is soft, nontender, nondistended. Positive bowel sounds. No guarding or rigidity. Extremities: No clubbing, cyanosis, or edema. No calf tenderness. Skin: No rashes. Normal skin turgor. Psych: Mood is okay. Affect is full. Insight and judgment are good. Laboratory Data: Sodium 132, potassium 3.7, chloride 100, CO2 of 27, BUN 18, creatinine 1, glucose 1 10, calcium 8.8, magnesium 1.8. Troponin less than 0.02. BNP is 198. INR 1.08. WBC 6, H and H of 11.3 and 34.7, platelets 161, neutrophils 61%. Imaging Data: Chest x-ray shows mild diffuse COPD, no acute intrathoracic process. Apical pleural t hickening on the right is present, unchanged. Dual lead pacer device is present. EKG; sinus rhythm with premature supraventricular complexes, rate of 97, nonspecific ST abnormality. No significant ch anges compared to previous. Assessment And Plan: A 69-year-old male with. 1.Generalized weakness. We will have PT, OT eval. 2.Dizziness, likely secondary to orthostatic hypotension from diuretics. We will hold losartan/hydr ochlorothiazide and Flomax. We will give IV fluids. Patient has received 2 L normal saline bolus. Orthostatic vital signs did show a drop from sitting to standing from 124 systolic to 93 systolic wit h a jumping heart rate from 69 to 85 systolic, dropped from 62 to 53. Continue with fall precautions . 3.Essential hypertension. We will hold blood pressure medications for now due to orthostatic hypote nsion. 4.Benign prostatic hyperplasia. Flomax on hold due to dizziness and orthostatic hypotension. We wi ll check urine sample to make sure there is no UTI. 5.Chronic obstructive pulmonary disease, chronic bronchitis, non oxygen dependent. We will continue with albuterol as needed. 6.History of skin cancer, status post resection. 7.History of myocardial infarction. 8.History of cerebrovascular accident without residual deficit. 9.Mild cognitive impairment. 10.Status post pacemaker. We will have pacemaker interrogated if not done within the past 90 days. Plan: Admit patient to [facility] as observation. JO ANN Voice ID: [id number]
[2019-02-21 04:14] LABS: Absolute Lymphocytes (CBC) 1.3 K/uL (0.7-4.9); Basophils % 1.7 % (0-1.3); Hematocrit 29.5 % (39.6-49.0); Lymphocytes % 30.7 % (15.3-44.8); MPV 9.1 fL (7.6-11.3); RBC Red Blood Cell Count 3.85 M/uL (4.33-5.43)
[2019-02-21 04:46] LABS: Albumin 2.9 g/dL (3.4-5.0); Bilirubin Total 0.6 mg/dL (0.2-1.0); Magnesium 2.1 mg/dL (1.8-2.4); Phosphorus 2.5 mg/dL (2.5-4.9); Protein, Total 5.7 g/dL (6.4-8.2)
[2019-02-21] MEDS ORDERED: HOME MED 1 EA UNK (Pantoprazole Sodium [Protonix] 40 MG) PO SCH (06:00)
[2019-02-21] MEDS ORDERED: PANTOPRAZOLE 40MG TABLET PO SCH (06:30)
[2019-02-21] MEDS: GABAPENTIN 300 MG CAP PO SCH (07:43)
[2019-02-21] MEDS ORDERED: ENOXAPARIN 40 MG/0.4 ML SQ SCH (09:00)
[2019-02-21] MEDS ORDERED: ASPIRIN 325 MG TAB PO SCH (09:00)
[2019-02-21] MEDS ORDERED: CLOPIDOGREL 75 MG TABLET PO SCH (09:00)
[2019-02-21 11:31] VITALS: O2SAT 97
[2019-02-21 13:15] VITALS: BP 149/59; TEMP 97.7
--- NOTE | 2019-02-22 02:02 | DS ---
Date of Discharge: 02/21/2019 Discharge Diagnoses: 1.Generalized weakness. 2.Dizziness. 3.Orthostatic hypotension. 4.Benign prostatic hyperplasia. 5.Chronic obstructive pulmonary disease, chronic bronchitis. 6.History of skin cancer. 7.History of myocardial infarction. 8.Disuse myopathy. 9.History of cerebrovascular accident without residual deficit. 10.Mild cognitive impairment. 11.Status post pacemaker. 12.History of essential hypertension, currently orthostatic. Hospital Course: Patient is a 69-year-old male with multiple admissions in the past, very familiar t o the hospitalist service, comes in with generalized weakness and dizziness. Patient is on alpha blo cker and losartan hydrochlorothiazide for his BPH and high blood pressure respectively. The patient' s blood pressure medications were held. His orthostatic vital signs were positive. He became very m uch hypotensive and dizzy when going from sitting to standing. The patient worked with physical therapist apy and he was given IV fluids. Patient did continue to have orthostatic hypotension. His pacemaker was to be evaluated as well. However, the patient wanted to go down for cigarette. He was given th e option of nicotine patch, however, did not wish to stay. He wanted to leave against medical advice . He was counseled extensively. His son was at the bedside. His son in fact said that he will back him up if he wants to leave the hospital against medical advice and patient signed out against medic al advice. He understands that he is at risk for falls and he may end up having a fracture, intracra nial bleed, or even possibly . The patient and son understand the risks. They agreed to the ut sk and wish to sign out. Patient is very likely to return to the hospital shortly after leaving [facility]. Physical Examination: General: Awake, alert, and oriented, in no acute distress, elderly male. CV: S1, S2. Respiratory: Moving air well. Abdomen: Soft, nontender, nondistended. Positive bowel sounds. Extremities: No clubbing, cyanosis, or edema. Neurologic: Nonfocal. SA/MODL Voice ID: [id number] Report ID: [id number]
== END 2019-02-21 13:31 | disposition left against medical advice (07) ==
LOC: ER 12:18 → ERHOLD 14:10 → 2ND 15:25 → 4TH 15:27
PROVIDERS: ADMIT Family Medicine; ATTEND Family Medicine
DX: R53.1 Weakness (principal); R42 Dizziness and giddiness; I95.1 Orthostatic hypotension; N40.0 Benign prostatic hyperplasia without lower urinary tract symptoms; J44.9 Chronic obstructive pulmonary disease, unspecified; Z85.828 Personal history of other malignant neoplasm of skin; I25.2 Old myocardial infarction; G72.89 Other specified myopathies; Z86.73 Personal history of transient ischemic attack (TIA), and cerebral infarction without residual deficits; G31.84 Mild cognitive impairment of uncertain or unknown etiology; Z95.0 Presence of cardiac pacemaker; I10 Essential (primary) hypertension; Z53.29 Procedure and treatment not carried out because of patient's decision for other reasons
CPT/HCPCS: 96361; 93005; 85025 ×2; 81001; 80048; 36415; 83735 ×2; 84100; 85610; 80076; 84484; 83690; 80053; 83880; 71045; 97112; 97116; 97161; 97166; 97530; 94760 ×4; 96360; 99285; J1650; J3475; J7030 ×4; G0378 ×3

== ENCOUNTER 2019-07-20 11:57 | Observation (INO) | payer OTHER ==
--- OUTSIDE RECORDS SUMMARY | 2019-07-20 12:10 | XMS REPORT | Clinical Summary ---
:1950 Demographics Address [address] [place] [address] Home Phone Mobile Phone Preferred Language Mauritanian Marital Status Unknown Gnosticism Affiliation Unknown Race White Ethnic Group Not or Author Organization [facility] Address [address] [place] [address] Support Name Relationship Address Phone Maurice Morfin [address] [phone] [place] [address] Kvng Morfin [address] [place] [phone] [place] [address] Care Team Providers Name Role Phone Yung Thomas [place] Primary Care Provider Allergies No Known Allergies Medications Medication Sig Dispensed Refills Start Date End Date Status albuterol Take 2.5 mg by 0 Activ e (PROVENTIL) 2.5 nebulization 4 mg/0.5 mL Nebu (four) times nebulizer solution daily. ipratropium Take 500 mcg by 0 Ac tive (ATROVENT) 0.02 % nebulization every nebulizer solution 6 (six) hours. metoprolol Take 25 mg by 0 Activ e (LOPRESSOR) 25 MG mouth 2 (two) tablet times daily. omeprazole Take 20 mg by 0 Activ e (PRILOSEC) 20 MG mouth daily. capsule budesonide-formoter Inhale 2 puffs by 0 Active ol (SYMBICORT) mouth via inhaler 160-4.5 2 (two) times mcg/actuation daily. inhaler acetaminophen-codei Take 1 tablet by 0 Active ne (TYLENOL #3) mouth every 4 300-30 mg per (four) hours as tablet needed for Pain. aspirin 81 MG Take 1 tablet (81 90 tablet 3 12/03/2017 019 chewable tablet mg total) by mouth daily. atorvastatin Take 0.5 tablets 90 tablet 3 12/02/2017 9 (LIPITOR) 80 MG (40 mg total) by tablet mouth nightly. clopidogrel Take 1 tablet (75 90 tablet 3 12/02/2017 9 (PLAVIX) 75 mg mg total) by mouth tablet daily. gabapentin Take 1 capsule 90 capsule 11 04/09/2018 04/09/2019 E xpired (NEURONTIN) 300 MG (300 mg total) by capsule mouth 3 (three) times daily. Active Problems Problem Noted Date Leg pain 04/06/2018 PVD (peripheral vascular disease) 04/06/2018 Ischemic stroke 11/30/2017 S/P admn tPA in diff fac w/n last 24 hr bef adm to crn t fac 11/30/2017 Essential hypertension 03/12/2017 Received tissue plasminogen activator (t-PA) less than 24 hours prior to 03/12/2017 arrival Acute ischemic stroke 03/11/2017 HLD (hyperlipidemia) 01/17/2016 Peripheral vascular disease 01/14/2016 Postoperative anemia 01/14/2016 Coronary artery disease involving mi'kmaq coronary teresa ry 01/10/2016 PAD (peripheral artery disease) 01/10/2016 HTN (hypertension) 01/10/2016 Iliac artery stenosis, bilateral 01/10/2016 Unstable angina 01/10/2016 COPD (chronic obstructive pulmonary disease) 6 Tobacco abuse 01/10/2016 ACS (acute coronary syndrome) 01/10/2016 Family History Medical History Relation Name Comments Tuberculosis Father Cancer Mother Heart disease Mother Relation Name Status Comments Father Mother Social History Tobacco Use Types Packs/Day Years Used Date Current Every Day Smoker Cigarettes 0.5 50 Smokeless Tobacco: Never Used Tobacco Cessation: Ready to Quit: No; Co unseling Given: No Comments: 2 cigarettes a day Alcohol Use Drinks/Week oz/Week Comments No Sex Assigned at Date Recorded Not on file Job Start Date Occupation Industry Not on file Not on file Not on file Travel History Travel Start Travel End No recent travel history available. 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 Device Shelf Model / Identifier Expiration Serial / Date Lot Grft Eptfe-Heparin Rng [id number] - [id number] Graft/Pa N/A: MARIELENA PRESCOTT & 09/01/2019 [id number] / Implanted: Qty: 1 on 01/13/2016 by Oniel Smith MD [facility] Arterial ASSC:MED PRDT [id number] / Results Not on fileafter 07/19/2018 Insurance Payer Benefit Plan / Group Subscriber ID Type Phone A ddress [facility] - UNITED MEDICARE HMO xxxxxxxxx MEDICARE [place] CARE MEDICAID MEDICAID OF [place] xxxxxxxxx Medicaid Guarantor Name Account Type Relation to Date of Phone Billing Patient Address Maurice Morfin Personal/Family Self 1950 [address] (Home) [place] [address] Maurice Morfin Personal/Family Self 1950 [address] ([address]) [place] [address] Advance Directives For more information, please contact:[facility] [place], [place] [phone] Code Status Date Activated Date Inactivated Comments Full Code 04/06/2018 5:09 PM This code status was determined by: Patient Full Code 11/30/2017 4:52 PM 12/02/2017 4:13 PM This code status was determined by: Patient Full Code 01/13/2016 11:29 AM 01/14/2016 8:29 PM This code status was determined by: Patient
--- OUTSIDE RECORDS SUMMARY | 2019-07-20 12:11 | XMS REPORT | Continuity of Care Document ---
:1950 Demographics Address [address] [place] [address] Home Phone Preferred Language en-US Marital Status Unknown Mandaen Affiliation Unknown Race Unknown Ethnic Group Unknown Author Organization [employer] Care Team Providers Name Role Phone [employer] Unavailable Un available Problems Problem Status Onset Classification Date Comments Sourc e Date Reported Syncope and 01/06/20 07/19/2018 Rob gutiérrez [place] [id number] [facility] CHEST PAIN Active 12/29/[address] PRABHA BILLING Active 12/29/[address] CVA Active 12/29/[address] Other chest pain 07/19/2018 [facility] Unspecified atrial 07/19/2018 [facility] fibrillation [facility] Center Essential (primary) 07/19/2018 [facility] hypertension [facility] Center 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 Major depressive 07/19/2018 [facility] disorder, single Med ical episode, Center unspecified Personal history of 07/19/2018 [facility] transient ischemic M edical attack (TIA), and Ce nter cerebral infarction without residual deficits Peripheral vascular 07/19/2018 [facility] disease, Medical unspecified Center 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 [facility] exas infarction Medical Center Pres[facility] angioplasty implant Center and graft Personal history of 07/19/2018 [facility] other malignant Medi waqar neoplasm of skin [address] ter Nicotine 07/19/2018 [facility] dependence, Medical cigarettes, Center uncomplicated Presence of cardiac 07/19/2018 [facility] pacemaker Medical Center 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 Medic al therapy Center long-term (current) 07/19/2018 [facility] use of aspirin Medic al Center long-term (current) 07/19/2018 [facility] use of Medical antithrombotics/ant Center iplatelets Amnesia (finding) Active Problem 06/22/2019 [facility] Cardiac pacemaker Active Problem 06/22/2019 [facility] in situ (finding) Ne uro Cerebrovascular Active Problem 06/22/2019 Mis tara accident (disorder) Neuro Chronic obstructive Active Problem 06/22/2019 [facility] lung disease Neuro (disorder) Hyperlipidemia Active Problem 06/22/2019 Misc her (disorder) Neuro Hypertensive Active Problem 06/22/2019 Mische r disorder, systemic N euro arterial (disorder) Tremor (finding) Active Problem 06/22/2019 [facility] CHEST PAIN, Active [facility] UNSPECIFIED [facility] Center Medications Medication Details Route Status Patient Ordering Order Source Instructions Provider Date topiramate 25 MG Oral 50 mg = 2 Active 06/19/ [facility] Tablet [Topamax] tab, PO, 2019 Neuro BID, # 360 tab, 3 Refill(s), [id number] topiramate 25 MG Oral 25 mg = 1 No Longer 05/05/ [facility] Tablet [Topamax] tab, PO, Active 2019 Neuro BID, # 180 tab, 3 Refill(s), Pharmacy: [id number] Donepezil 5 mg = 1 Active 04/20/ cher hydrochloride 5 MG tab, PO, 2020 Neur o Oral Tablet [Aricept] Bedtime, # 30 tab, 3 Refill(s), Pharmacy: [id number] topiramate 25 MG Oral 25 mg = 1 Active 04/20/ cher Tablet [Topamax] tab, PO, 2019 Neuro BID, # 60 tab, 3 Refill(s), Pharmacy: [id number] tamsulosin 0.4 mg, PO, Active Daily, 0 2019 Neuro Refill(s) gabapentin 300 mg, PO, Active Daily, 0 2020 Neuro Refill(s) Sertraline 50 mg, PO, Active Daily, 0 2020 Neuro Refill(s) Losartan PO, Daily, Inactive 0 Refill(s) 2019 Neuro Hydrochlorothiazide 1 tab, PO, Active ischer 25 MG / Losartan Daily, 0 2019 Neuro Potassium 100 MG Oral Refill(s) Tablet metoprolol tartrate 25 mg = 1 Active [place] 25 mg oral tablet tab, PO, 2018 Medic al BID, # 60 Center tab, 1 Refill(s) heparin Notes: Inactive [place] porcine 2018 Medical heparin Center Calcium Chloride 1,000 mL, Inactive [place] 0.0014 MEQ/ML / 1,000 2017 Medical Potassium Chloride ml/hr, Cente r 0.004 MEQ/ML / Sodium Infuse Chloride 0.103 MEQ/ML Over: 1 hr, / Sodium Lactate Route: IV, 0.028 MEQ/ML 1,000, Drug Injectable Solution form: INJ, ONCE, Priority: STAT, Dosing Weight 69.659 kg, Start date: 12/29/17 16:42:00 CDT, Stop date: 12/29/17 16:42:00 CDT Docusate Notes: No Longer [place] (Same as: Active 2018 Medical Colace) (Do Center Not Crush) Eliquis Notes: Same Inactive [place] as: Eliquis 2018 Medical Center pantoprazole Notes: No Longer [place] Tablet Active 2017 Medical should not Center be chewed or crushed. (Same as: Protonix) Losartan Notes: Inactive [place] (Same as: 2018 Medical Cozaar) Center Hydrochlorothiazide Notes: Inactive [place] (Same as: 2018 Medical Hydrodiuril Center ) With food. Plavix Notes: No Longer [place] (Same As: Active 2018 Medical Plavix) Center Buspirone Notes: No Longer [place] (Same As: Active 2018 Medical BuSpar) Center Aspirin Notes: Do No Longer [place] not crush Active 2018 Medical or chew. Center (Same As: Ecotrin) atorvastatin Notes: No Longer [place] (Same as: Active 2018 Medical Lipitor) Center metoprolol tartrate Notes: No Longer [place] (Same as: Active 2018 Medical Lopressor) Center Hydrochlorothiazide 1 tab, PO, No Longer [place] 25 MG / Losartan Daily Active 2017 Medical Potassium 100 MG Oral Ce nter Tablet atorvastatin 80 mg 80 mg = 1 Active [place] oral tablet tab, PO, 2017 Medical Bedtime Center Aspirin 81 mg, PO, Active [place] Daily, 0 2018 Medical Refill(s) Center busPIRone 15 mg oral 15 mg = 1 Active H [place] tablet tab, PO, 2017 Medical BID, 0 Center Refill(s) atorvastatin 40 mg 40 mg = 1 Inactive [place] oral tablet tab, PO, 2018 Medical Daily, 0 Center Refill(s) Hydrochlorothiazide 25 mg, PO, Inactive [place] Daily, 0 2017 Medical Refill(s) [place] losartan 100 mg oral 100 mg = 1 Inactive [facility] tablet tab, PO, 2018 Medical Daily, 0 Center Refill(s) clopidogrel 75 MG 75 mg = 1 Active [place] Oral Tablet [Plavix] tab, PO, 2018 Me dical Daily, 0 Center Refill(s) pantoprazole 40 mg 40 mg = 1 Active [facility] oral enteric coated tab, PO, 2018 Med ical tablet Daily, 0 Center Refill(s) normal saline 0.9% IV 1,000 mL, Inactive [facility] 1,000 mL Rate: 100 2018 Medical ml/hr, [place] Infuse over: 10 hr, Route: IV, Dosing Weight 68.182 kg, Total Volume: 1,000, Priority: STAT, Start date: 12/28/17 18:15:00 CDT, Duration: 1 doses or times, Stop date: 12/29/17 4:14:00 CDT, 1.83, m2 iodixanol 100 mL, Inactive [facility] Route: IVP2017 Medical Drug Form: [place] SOLN, Dosing Weight 68.182, kg, ONCALL, STAT, Start date: 12/28/17 15:44:00 CDT, Duration: 1 doses or times, Dose = 2.2ml/kg, Max dose = 100ml -- "To be infused by Radiology Staff ONLY" Morphine 4 mg, Inactive [facility] Route: IVP, 2017 Medical ONCE, [place] Dosing Weight 68.182, kg, Priority: STAT, Start date: 12/28/17 13:44:00 CDT, Stop date: 12/28/17 13:44:00 CDT Isolyte S PH-7.4 500 mL, Inactive [place] (Bolus) IV Route: IV, 2017 Medical ONCE, Center Dosing Weight 68.182 kg, Start date: 12/28/17 13:44:00 CDT, Stop date: 12/28/17 13:44:00 CDT Metoclopramide 10 mg, Inactive [place] Route: IVP2017 Medical Drug form: [place] INJ, ONCE, Dosing Weight 68.182, kg, Priority: STAT, Start date: 12/28/17 13:38:00 CDT, Stop date: 12/28/17 13:38:00 CDT Saline Flush 0.9% Notes: No Longer [place] (Same as: Active 2017 [facility] Posiflush) Saline Flush 0.9% Notes: [place]active [place] (Same as: 2017 [facility] Posiflush) Allergies, Adverse Reactions, Alerts Substance Category Reaction Severity Reaction Status Date Comments S ource type Reported No Known Assertion Drug Misch er Medication allergy Neuro Allergies Immunizations Immunization Date Given Site Status Last Comments Source Updated pneumococcal 10/21/2007 Right completed [place] Mische r 23-valent vaccine deltoid Ne uro,[facility] Results Order Name Results Value Reference Date Interpretation Comments Sadie rce Range ELECTROLYTE AGAP 11.9 10. - 12/30 [facility] 20. [facility] ELECTROLYTE eGFR 96 12/30 [facility] Comment: The Medical eGFR is Center calculated using the CKD-EPI formula. In most young, healthy individuals the eGFR will be >90 mL/min/1.73m2 . The eGFR declines with age. An eGFR of 60-89 may be normal in some populations, particularly the elderly, for whom the CKD-EPI formula has not been extensively validated. Use of the eGFR is not recommended in the following populations:< br/>
Jinny viduals with unstable creatinine concentration s, including patients and those with serious co-morbid conditions.<b r/>
Patie nts with extremes in muscle mass or diet.

The data above are obtained from the National Kidney Disease Education Program (NKDEP) which additionally recommends that when the eGFR is used in patients with extremes of body mass index for purposes of drug dosing, the eGFR should be multiplied by the estimated BMI. ELECTROLYTE BUN 17 7 - 22 12/30 [facility] ELECTROLYTE Glucose Lvl 79 70 - 99 12/30 [facility] ELECTROLYTE Calcium Lvl 7.6 8.5 - 10.5 12/30 [place] [facility] ELECTROLYTE Chloride Lvl 108 95 - 109 12/30 [place] [facility] ELECTROLYTE Potassium Lvl 3.9 3.5 - 5.1 12/30 [place] [facility] ELECTROLYTE Sodium Lvl 140 135 - 145 12/30 [place] [facility] ELECTROLYTE Creatinine 0.72 0.50 - 12/30 [facility] S Lvl 1.40 [facility] ELECTROLYTE CO2 24 24 - 32 12/30 [place] [facility] HEMATOLOGY Platelet 136 133 - 450 12/30 [facility] HEMATOLOGY MPV 8.5 7.4 - 10.4 12/30 [facility] HEMATOLOGY RDW 17.9 11.5 - 12/30 [place] 14.5 [facility] HEMATOLOGY WBC 5.4 3.7 - 10.4 12/30 [facility] HEMATOLOGY Hgb 9.4 14.0 - 12/30 [place] 18.0 [facility] HEMATOLOGY MCHC 32.9 32.0 - 12/30 [place] 36.0 [facility] HEMATOLOGY Hct 28.5 42.0 - 12/30 [place] 54.0 [facility] HEMATOLOGY MCV 84.1 80.0 - 12/30 [place] 94.0 [facility] HEMATOLOGY RBC 3.39 4.70 - 12/30 [place] 6. [facility] HEMATOLOGY MCH 27.6 27.0 - 12/30 [place] 31.0 [facility] CARDIAC Troponin-I <0.02 0.00 - 12/29 [place] ENZYMES 0. [facility] CARDIAC Troponin-I <0.02 0.00 - 12/29 [place] ENZYMES 0. [facility] HEMATOLOGY Neutrophils # 4.1 1.5 - 8.1 12/29 [place] [facility] HEMATOLOGY Basophils 1.3 0.0 - 1.0 12/29 [facility] HEMATOLOGY Monocytes # 0.7 0.0 - 0.8 12/29 [place] [facility] HEMATOLOGY Lymphocytes # 1.3 1.0 - 5.5 12/29 [place] [facility] HEMATOLOGY Eosinophils # 0.1 0.0 - 0.5 12/29 [place] [facility] HEMATOLOGY Basophils # 0.1 0.0 - 0.2 12/29 [place] [facility] HEMATOLOGY Lymphocytes 20.5 20.0 - 12/29 [place] 40.0 2018 [facility] HEMATOLOGY Eosinophils 1.9 0.0 - 4.0 12/29 [facility] HEMATOLOGY Monocytes 11.0 2.0 - 12.0 12/29 [facility] HEMATOLOGY Segs 65.3 45.0 - 12/29 [place] 75.0 [facility] HEMATOLOGY WBC 6.2 3.7 - 10.4 12/29 [facility] HEMATOLOGY MCH 27.3 27.0 - 12/29 [place] 31.0 [facility] HEMATOLOGY MCV 83.7 80.0 - 12/29 [place] 94.0 [facility] HEMATOLOGY RBC 3.80 4.70 - 12/29 [place] 6.10 [facility] HEMATOLOGY Hct 31.8 42.0 - 12/29 [place] 54.0 [facility] HEMATOLOGY Hgb 10.4 14.0 - 12/29 [place] 18.0 [facility] HEMATOLOGY RDW 17.7 11.5 - 12/29 [place] 14.5 [facility] HEMATOLOGY MCHC 32.6 32.0 - 12/29 [place] 36.0 [facility] HEMATOLOGY MPV 8.7 7.4 - 10.4 12/29 [facility] HEMATOLOGY Platelet 167 133 - 450 12/29 [facility] CARDIAC Troponin-I <0.02 0.00 - 12/29 [place] ENZYMES 0.40 [facility] CHEM PANEL Calcium Lvl 7.2 8.5 - 10.5 12/29 [facility] CHEM PANEL AGAP 13.6 10.0 - 12/29 [place] 20.0 [facility] CHEM PANEL Sodium Lvl 137 135 - 145 12/29 [facility] CHEM PANEL Creatinine 0.81 0.50 - 12/29 [place] Lvl 1.40 [facility] CHEM PANEL Potassium Lvl 3.6 3.5 - 5.1 12/29 [place] [facility] CHEM PANEL CO2 19 24 - 32 12/29 [facility] CHEM PANEL Chloride Lvl 108 95 - 109 12/29 [place] [facility] CHEM PANEL eGFR 91 12/29 [facility] Comment: The Medical eGFR is Center calculated using the CKD-EPI formula. In most young, healthy individuals the eGFR will be >90 mL/min/1.73m2 . The eGFR declines with age. An eGFR of 60-89 may be normal in some populations, particularly the elderly, for whom the CKD-EPI formula has not been extensively validated. Use of the eGFR is not recommended in the following populations:< br/>
Jinny viduals with unstable creatinine concentration s, including patients and those with serious co-morbid conditions.<b r/>
Patie nts with extremes in muscle mass or diet.

The data above are obtained from the National Kidney Disease Education Program (NKDEP) which additionally recommends that when the eGFR is used in patients with extremes of body mass index for purposes of drug dosing, the eGFR should be multiplied by the estimated BMI. CHEM PANEL BUN 17 7 - 22 12/[address] CHEM PANEL Glucose Lvl 82 70 - 99 12/[address] CHEM PANEL Lactic Acid 1.5 0.5 - 2.2 12/29 [facility] [address] [place] [address] CHEM PANEL Lactic Acid 1.3 0.5 - 2.2 12/29 [facility] [address] [place] [address] LIPIDS Trig 89 <=149 12/29 [facility] mg/dL [facility] LIPIDS Chol 150 <=199 12/29 [facility] mg/dL [address] [place] [address] LIPIDS HDL 33 >=61 mg/dL 12/29 [facility] [address] [place] [address] LIPIDS CHD Risk 4.55 4.00 - 12/29 [facility] 7.30 [facility] LIPIDS LDL 99 <=99 mg/dL 12/29 [facility] (Calculated) [address] [place] [address] LIPIDS VLDL 18 12/29 [facility] [address] [place] [address] SPECIAL Hgb A1C 6.0 <=5.6 % 12/29 [facility] CHEMISTRY [address] [place] [address] URINE AND UA Blood Negative Negative 12/29 [facility] STOOL (12/28/17 7:27 PM) [facility] URINE AND UA Spec Grav <=1.005 <=1.030 12/29 [facility] STOOL *NA* /2017 [facility] (12/28/17 7:27 PM) Cente r URINE AND UA Turbidity Clear Clear 12/29 [facility] STOOL (12/28/17 7:27 PM) [facility] URINE AND UA Glucose Negative Negative 12/29 [facility] STOOL (12/28/17 7:27 PM) [facility] URINE AND UA Protein Negative Negative 12/29 [facility] [place] STOOL (12/28/17 7:27 PM) /2017 [facility] URINE AND UA Bili Negative Negative 12/29 [place] STOOL *NA* /2017 Medical (12/28/17 7:27 PM) Cente r URINE AND UA Ketones Negative Negative 12/29 [place] STOOL *NA* /2017 Medical (12/28/17 7:27 PM) Cente r URINE AND UA Leuk Est Negative Negative 12/29 [facility] STOOL (12/28/17 7:27 PM) /2017 [facility] URINE AND UA Nitrite Negative Negative 12/29 [place] STOOL (12/28/17 7:27 PM) [facility] URINE AND UA 0.2 0.1 - 1.0 12/29 [facility] Urobilinogen /2017 [facility] URINE AND UA pH 7.0 5.0 - 8.0 12/29 [facility] STOOL /2017 [facility] URINE AND UA Color Yellow Yellow 12/29 [place] STOOL *NA* /2017 Medical (12/28/17 7:27 PM) Cente r URINE AND UA Bacteria None Seen None Seen 12/29 [place] STOOL (12/28/17 7:27 PM) [facility] URINE AND UA WBC None Seen None Seen 12/29 [place] STOOL (12/28/17 7:27 PM) [facility] URINE AND UA Sq Epi Rare /LPF Few /LPF 12/29 [facility] STOOL /2017 [facility] URINE AND Micro? Performed 12/29 [place] STOOL (12/28/17 7:27 PM) [facility] URINE AND UA RBC None Seen 0 - 2 12/29 [facility] (12/28/17 7:27 PM) [facility] CHEM PANEL eGFR 69 12/28 Comment: The Medical eGFR is Center calculated using the CKD-EPI formula. In most young, healthy individuals the eGFR will be >90 mL/min/1.73m2 . The eGFR declines with age. An eGFR of 60-89 may be normal in some populations, particularly the elderly, for whom the CKD-EPI formula has not been extensively validated. Use of the eGFR is not recommended in the following populations:< br/>
Jinny viduals with unstable creatinine concentration s, including patients and those with serious co-morbid conditions.<b r/>
Patie nts with extremes in muscle mass or diet.

The data above are obtained from the National Kidney Disease Education Program (NKDEP) which additionally recommends that when the eGFR is used in patients with extremes of body mass index for purposes of drug dosing, the eGFR should be multiplied by the estimated BMI. CHEM PANEL POC 0.7 0.5 - 1.4 12/28 [facility] CARDIAC Total CK 105 12 - 191 12/28 [facility] ENZYMES 2017 [facility] CHEM PANEL Globulin 5.2 2.7 - 4.2 12/[address] CHEM PANEL A/G Ratio 0.8 0.7 - 1.6 12/[address] CHEM PANEL Albumin Lvl 4.4 3.5 - 5.0 12/28 [facility]2017 [facility] CHEM PANEL Total Protein 9.6 6.4 - 8.4 12/[address] CHEM PANEL Bili Direct 0.1 0.0 - 0.3 12/28 [facility]2017 [facility] CHEM PANEL Bili Total 0.6 0.2 - 1.3 12/[address] CHEM PANEL Bili Indirect 0.5 0.0 - 1.0 12/[address] CHEM PANEL AST 23 0 - 37 12/[address] CHEM PANEL ALT 23 0 - 65 12/[address] CHEM PANEL Alk Phos 161 39 - 136 12/[address] CHEM PANEL Lipase Lvl 202 73 - 393 12/[address] CHEM PANEL Lactic Acid 2.5 0.5 - 2.2 12/28 [facility] ELECTROLYTE AGAP 17.3 10.0 - 12/28 [facility] S 20.0 [facility] ELECTROLYTE Calcium Lvl 9.9 8.5 - 10.5 12/28 [facility]2017 [facility] ELECTROLYTE Chloride Lvl 93 95 - 109 12/28 [facility]2017 [facility] ELECTROLYTE CO2 26 24 - 32 12/[address] ELECTROLYTE Sodium Lvl 132 135 - 145 12/28 [facility] ELECTROLYTE Potassium Lvl 4.3 3.5 - 5.1 12/28 [place] 2018 [facility] ELECTROLYTE BUN 18 7 - 22 12/28 [place] [facility] Center ELECTROLYTE Glucose Lvl 133 70 - 99 12/28 [place] [facility] Center ELECTROLYTE Creatinine 0.99 0.50 - 12/28 [facility] S Lvl 1.40 [facility] HEMATOLOGY Hct 40.9 42.0 - 12/28 [place] 54.0 /2018 [facility] HEMATOLOGY WBC 13.5 3.7 - 10.4 12/28 [facility] HEMATOLOGY RBC 4.91 4.70 - 12/28 [place] 6.10 [facility] HEMATOLOGY Hgb 13.5 14.0 - 12/28 [place] 18.0 [facility] HEMATOLOGY MCV 83.4 80.0 - 12/28 [place] 94.0 /2017 [facility] HEMATOLOGY MCH 27.5 27.0 - 12/28 [place] 31.0 [facility] HEMATOLOGY RDW 18.2 11.5 - 12/28 [place] 14.5 /2017 [facility] HEMATOLOGY MCHC 33.0 32.0 - 12/28 [place] 36.0 [facility] HEMATOLOGY Platelet 216 133 - 450 12/28 [facility] HEMATOLOGY MPV 8.5 7.4 - 10.4 12/28 [facility] HEMATOLOGY PTT 31.5 22.9 - 12/28 [place] 35.8 /2018 [facility] HEMATOLOGY PT 13.2 12.0 - 12/28 [place] 14.7 /2018 [facility] HEMATOLOGY INR 1.00 0.85 - 12/28 [place] 1.17 [facility] HEMATOLOGY Basophils # 0.2 0.0 - 0.2 12/28 [facility] HEMATOLOGY Lymphocytes 11.4 20.0 - 12/28 [place] 40.0 2018 [facility] HEMATOLOGY Monocytes 4.4 2.0 - 12.0 12/28 [facility] HEMATOLOGY Neutrophils # 11.1 1.5 - 8.1 12/28 [place] [facility] HEMATOLOGY Lymphocytes # 1.5 1.0 - 5.5 12/28 [place] [facility] HEMATOLOGY Eosinophils # 0.1 0.0 - 0.5 12/28 [place] [facility] HEMATOLOGY Monocytes # 0.6 0.0 - 0.8 12/28 [place] [facility] HEMATOLOGY Eosinophils 0.9 0.0 - 4.0 12/28 [place] [facility] HEMATOLOGY Basophils 1.5 0.0 - 1.0 12/28 [facility] /2017 [facility] HEMATOLOGY Segs 81.8 45.0 - 12/28 [facility] 75.0 [facility] Pathology Reports No Data Provided for This Section Diagnostic Reports Report Value Date Source Abdomen/Pelvis w IV EXAM: CT ABDOMEN AND PELVIS WITH CONTRAST [facility] contrast CT DATE: 12/28/2017 2:[address] INDICATION: - abd pain COMPARISON: None. TECHNIQUE: Volumetric CT of the abdomen and pelvis is acquired following the intravenous administration of contrast. Axial, coronal and sagittal images are provided. IV contrast: 100 mL of Visipaque 320 Enteric contrast: None. DLP: [id number] mGy-cm FINDINGS: Lines, tubes and hardware: Partial visua lization of leads from cardiac device. Lower thorax: Small bilateral dependent atelecta sis. Liver: Normal. Biliary tree: No intra- or extrahepatic biliary ductal dilation. Gallbladder: Surgically absent. Pancreas: Fatty atrophy. Otherwise normal. Spleen: Normal. Adrenals: Normal. Kidneys and ureters: Subcent imeter hypodensities in the kidneys are too small to further characterize. Contrast is present within the collecting systems. No hydronephrosis. Bladder: There is a small 1. 1 cm right-sided bladder diverticulum (image 69 of series 7). Reproductive organs: Prostate calcification. Oth erwise unremarkable. Gastrointestinal tract: Stomach: Small hiatal hernia. Small bowel: Normal. Colon: Normal. Appendix: Normal. Peritoneum, mesentery and re troperitoneum: No free air, ascites or loculated fluid. Lymph nodes: Normal. Vasculature: Aorta and branches: There is atherosclerotic calcification abdominal aorta and iliac vessels with complete occlusion of the left common iliac artery. There is a stent in the right external iliac artery. There is a patent femoral-femoral bypass graft. IVC and veins: Normal. Portal vasculature: Normal. Bones: No acute abnormality. Soft tissues: Normal. IMPRESSION: 1. No acute abdominopelvic abnormality. 2. 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 3. Small hiatal hernia. Brain/Neck Stroke Exam: CTA HEAD AND NECK 12/28/2017 [facility] Medical perfusion CTA DATE: 12/28/2017 1:10 PM CDT [facility] INDICATION: - cva COMPARISON: None TECHNIQUE: Rapid [...] course and caliber. Mixed plaque formation at th e origin of both internal carotid arteries not resulting in significant stenosis by NASCET criteria. No discrete plaque ulceration. Both cervical internal carotid arteries ar e patent and symmetric in ca liber. Intracranial internal carotid arteries are patent. Atheromatous calcification of the carotid siphons. Both posterior communicating arteries are patent . The anterior, middle and pos terior cerebral arteries are patent with no proximal branch occlusion or flow-limiting stenosis. No AV malformation or aneurysms. Dural venous sinuses are patent. Atheromatous disease in the intradural segments of the vertebral arteries with no flow limitation. IMPRESSION: No intracranial proximal branch occlusion or seb w-limiting stenosis. No significant stenosis by NASCET criteria. Chest 1view DX EXAM: XR CHEST 1 VIEW 12/28/2017 [facility] edical DATE: [facility]2017 [facility]: Cerebral vascular accident. COMPARISON: None. TECHNIQUE: AP chest. UT SECTION: ER FINDINGS: Lines, tubes and hardware: Dual-lead pacemaker i s in place. Lungs and pleura: Lungs are hyperinflated. Small airspace opacity noted abutting the minor fissure. Biapical pleural thickening is present. No pleural effusions or pneumothorax. Heart and mediastinum: The h eart size is normal for technique. Note made of aortic arch calcifications. Bones: No acute abnormality. Irregular radiopacity is not ed along the left axillary soft tissues which could represent contrast extravasation. IMPRESSION: 1. Irregular radiopacity al deb the left axillary soft tissues likely represents contrast extravasation 2. Small airspace opacity a butting the minor fissure may represent fissural thickening/scarring/early consolidation. Brain Stroke wo EXAM: CT BRAIN WITHOUT CONTRAST 12/28/2017 [facility] contrast CT DATE: 12/28/2017 [facility] INDICATION: Right-sided weakness, right facial d michael COMPARISON: None TECHNIQUE: Routine axial images of the brain wer e obtained. IV contrast: None. DISCUSSION: There is no hemorrhage or re cent ischemic change. No edema, mass lesion, or extra-axial collection is demonstrated. The ventricles and extra-axial spaces are normal. Calvarium and skull base are intact. There are atherosclerotic calcifications in the bilateral carotid siphons. The mastoid air cells, visible paranasal sinuses, and orbital globes are unremarkable. IMPRESSION: No hemorrhage or early ischemic change Consultation Notes No Data Provided for This Section Discharge Summaries No Data Provided for This Section History and Physicals No Data Provided for This Section Vital Signs Vital Sign Value Date Comments Source Systolic (mm Hg) 123 04/20/2019 [facility] Diastolic (mm Hg) 71 04/20/2019 [facility] Heart Rate 76 04/20/2019 [facility] Respitory Rate 16 04/20/2019 [facility] Height 177.8 cm 04/20/2019 [facility] Weight 68.636 04/20/2019 [facility] BMI Calculated 21.71 04/20/2019 [facility] Systolic (mm Hg) 161 03/23/2019 [facility] [place] [facility] Diastolic (mm Hg) 75 03/23/2019 [facility] Heart Rate 71 03/23/2019 [facility] Respitory Rate 16 03/23/2019 [facility] Height 175.26 cm 03/23/2019 [facility] Weight 68.636 03/23/2019 [facility] BMI Calculated 22.35 03/23/2019 [facility] Respitory Rate 18 12/30/2017 [facility] Heart Rate 58 12/30/2017 [facility] Systolic (mm Hg) 118 12/30/2017 [facility] Diastolic (mm Hg) 61 12/30/2017 [facility] Temperature Oral (F) 98.1 F 12/30/2017 [facility] Temperature Oral (F) 97.8 F 12/30/2017 [facility] Heart Rate 60 12/30/2017 [facility] Systolic (mm Hg) 110 12/30/2017 [facility] Diastolic (mm Hg) 58 12/30/2017 [facility] Respitory Rate 18 12/30/2017 [facility] Heart Rate 60 12/30/2017 [facility] Temperature Oral (F) 97.6 F 12/30/2017 [facility] Respitory Rate 18 12/30/2017 [facility] Systolic (mm Hg) 104 12/30/2017 [facility] Di[facility] (mm Hg) 53 12/30/2017 [facility] Weight 69.659 12/29/2017 [facility] BMI Calculated 22.68 12/29/2017 [facility] Height 175.26 cm 12/29/2017 [facility] Weight 68.182 12/28/2017 [facility] BMI Calculated 22.2 12/28/2017 [facility] Height 175.26 cm 12/28/2017 [facility] Encounters Location Location Encounter Encounter Reason Attending ADM DC Stat us Source Details Type Number For Provider Date Date Visit [facility] [id number] Divina 12/28 12/30 [facility] Tanvir Nowak /2017 [facility] [id number] Rajendra 03/23 Active [facility]note 3] [facility] [facility] [id number] Rajendra 03/23 03/24 [facility] Krell /2019 [facility] [id number] Rajendra 04/20 Active [place] [address] [facility] [id number] Rajendra 04/20 04/21 [facility] Krell /2020 2020 [facility] [id number] Rajendra 06/19 Active [place] [address] [facility] [id number] Yung 06/19 06/20 [facility] Thomas III /2019 [facility] [place] [facility] [id number] Rajendra 09/20 [facility][note 3] Tanvir Procedures No Data Provided for This Section Assessment and Plan Assessment and Plan Date Source Extracted from:Title: Progress Note 12/30/2017 [facility] Author: Divina Nowak MD Date: 12/29/17 67 yo with pmh afib, cva, cad, p ad, htn admitted for evaluation of chest pain and lightheadedness. 1.Pre-syncope(R55) suspect possible orthostatic hypotensio n. LR bolus today and hold anti-htn. cont telemetry monitoring. mri cannot be done given that his pacemaker not mri compatible to assess for cva though ct unremarkable. 2.Acute chest pain(R07.9) ekg unchanged. trend troponin and telemetry monitoring. Ordered: Admit/Condition, 12/28/17 17:52:00 CD T, Status: Out Patient with Observation Services, Telemetry Capable Location, Location: [facility] tele, Expected LOS: 1 Midnight, Divina Nowak MD, Admit MD Review/Approve Yes 3.A-fib(I48.91) metoprolol. d/c apixaban. defer anticoagulation to op cardi ologist. 4.HTN (hypertension)(I10) hold losartan and hctz. 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 6.Coronary artery disease(I25.10) resume asa, atorvastatin, plavix and me toprolol. holding acei given hypotension. 7.Depression(F32.9) buspar heparin. pending pt/ot evaluation. Extracted from:Title: H and P Author: Alejandro Matias DO Date: 12/28/17 CC: Chest pain, vomiting HPI: 67yo male with pmhx listed below pr esents with chest pain and vomiting. Patient suddenly felt lightheaded and was going to pass out. He called for his son who grabbed him and put him on the ground. EMS was called. En route, patient vomit ed and complained of substernal CP. Son noticed that his speech was off and he had a slight facial droop on the right. On my eval, patient complains of 4/10 charp substernal CP. No recent fevers, chills , abdominal pain, diarrhea, back pain. Of note, [...] Surgical Hx: Lower extremity bypass, pacemaker placement, ch olecystectomy Social:Smokes 2-3 cigarettes per day. Smoking for 50 years Family hx: mom: ovarian cancer Medications: Reviewed. See med rec. Physical exam: Vitals reviewed Gen: No distress HEENT: dry mm Cardiac: RRR. No murmurs Resp: CTA Abd: Positive bowel sounds. No tenderness MSK: No LE edema Neuro: Alert and oriented. Equal strengt h upper and LE. No focal deficits. No facial droop. CN intact to testing. Skin: no rash Labs and imaging reviewed. Assessment: 1. Pre-syncope: etiology could be orthos tatic hypotension vs a-fib vs ischemic stroke 2. Atypical chest pain-substernal, but s harp in character. EKG and trop normal. I don't suspect ACS right now 3. A-fib-newly diagnosed by laundry operator finishing today. [id number] o f 5 4. Hx of CAD-stable 5. PAD 6. Hx of CVA 7. HTN 8. Tobacco abuse Plan -admit to obs unit -trend troponin to rule out ACS -IVF hydration.Please check orthostatics prior to fluids -check TSH -start eliquis for A-fib -Need to rule out ischemic infarct in br ain given history. Will require MRI brain -Continue plavix, statin, aspirin, and home anti hypertensiv es -DVT proph: eliquis -Diet: heart healthy Patient and family indicated understanding and agreed with p frank of care. Extracted from:Title: Consult Note Author: Florencia pU GRADUATE NURSE Date: 12/28/17 67 yo man with multiple vascular risk fa ctors pw BERNABE, Chest Pain, Nausea and vomiting. Son thought he might have been weaker than normal on the R. Patient has no drift, is purposefully using his R side, and does not have a facial droop on exam . Patient denies feeling worsening weakness on R, does report generalized weakness and feeling ill. Neuroimaging without obvious signs of ischemia, hemorrhage, LV O, or flow limiting stenosis, however th ere is a hyperdense spot in area of [...] allowing us to participate in this patient's c are. Florencia Up [facility]- Stroke Team GRADUATE NURSE consult pager [phone] Addendum by Julius Maciel MD on 12/28/2017 18:30 CDT Vessel images was reviewed, which is unr emarkable. Defer chest pain work-up for emergency department. Plan of Care No Data Provided for This Section Social History Social History Date Source Social History TypeResponse 12/29/2017 [facility] Alcohol Previous treatment: None. Smoking Status Current every day smoker; Type: Cigarett es; Exposure to Tobacco Smoke None; Cigarette Smoking Last 365 Days Yes; Reg Smoking Cessation Counseling Yes entered on: 12/28/17 Social History TypeResponse 12/29/2017 [facility] Alcohol Previous treatment: None. Employment/School 1 Smoking Status Current every day smoker; Type: Cigarett es; Exposure to Tobacco Smoke None; Cigarette Smoking Last 365 Days Yes; Reg Smoking Cessation Counseling Yes entered on: 06/20/19 1May release medical information tp Son- Kvng Pena Family History No Data Provided for This Section Advance Directives No Data Provided for This Section Functional Status No Data Provided for This Section
--- OUTSIDE RECORDS SUMMARY | 2019-07-20 12:12 | XMS REPORT | Summary of Care ---
:1950 Demographics Address [address] [place] [address] Email Address NONE Preferred Language Kyrgyz Marital Status Unknown Latter Day Affiliation Unknown Race Other Additional Race(s) Unavailable Ethnic Group Not or Author Organization [facility] Neurology [place] Address [address] [place] [address]- Encounter [facility] Marsha(FIN) [phone] Date(s): 06/20/19 - 06/20/19 [facility] [address] [place] [address]- [phone] Discharge Disposition: Home or Self Care Attending Physician: Rajendra Buenrostro MD Referring Physician: Yung Medrano MD Vital Signs No data available for this section Problem List Condition Effective Dates Status Health Status Informant Memory loss(Confirmed) Active Pacemaker(Confirmed) Active CVA (cerebrovascular Active accident)(Confirmed) COPD (chronic obstructive pulmonary Active disease)(Confirmed) Hyperlipidemia(Confirmed) Active Hypertension(Confirmed) Active Tremor(Confirmed) Active Allergies, Adverse Reactions, Alerts No Known Medication Allergies Medications Topamax 25 mg oral tablet 50 mg = 2 tab, PO, BID, # 360 tab, 3 Refill(s), Pharmacy: [facility] #[id number] Start Date: 06/20/19 Stop Date: 06/14/20 Status: OrderedTopamax 25 mg oral tablet 25 mg = 1 tab, PO, BID, # 180 tab, 3 Refill(s), [id number] Start Date: 05/05/19 Stop Date: 06/20/19 Status: Discontinued Results No data available for this section Immunizations Given and Recorded Vaccine Date Status Refusal Reason pneumococcal 23-valent vaccine 10/21/07 Given Procedures No data available for this section Social History Social History Type Response Alcohol Previous treatment: None. Employment/School 1 Smoking Status Current every day smoker; Ty pe: Cigarettes; Exposure to Tobacco Smoke None; Cigarette Smoking Last 365 Days Yes; Reg Smoking Cessation Counseling Yes entered on: 06/20/19 1May release medical information tp Son- Kvng Morfin Assessment and Plan No data available for this section
--- OUTSIDE RECORDS SUMMARY | 2019-07-20 12:12 | XMS REPORT | Summary of Care ---
:1950 Demographics Address [address] [place] [address] Email Address NONE Preferred Language Telugu Marital Status Unknown Shinto Affiliation Unknown Race Other Additional Race(s) Unavailable Ethnic Group Not or Author Organization [facility] Neurology [place] Address [address] [place] [address]- Encounter [facility] Marsha(FIN) [phone] Date(s): 04/20/19 - 04/20/19 [facility] [address] [address], [place] [address]- [phone] Discharge Disposition: Home or Self Care Attending Physician: Rajendra Buenrostro MD Referring Physician: Yung Medrano MD Vital Signs Most recent to oldest [Reference Range]: 1 Height 177.8 cm (04/20/19 11:29 AM) Blood Pressure [90-140/60-90 mmHg] 123/71 mmHg (04/20/19 11:29 AM) Respiratory Rate [14-20 BRMIN] 16 BRMIN (04/20/19 11:29 AM) Peripheral Pulse Rate [60-100 bpm] 76 bpm (04/20/19 11:29 AM) Weight 68.636 kg (04/20/19 11:29 AM) Body Mass Index 21.71 m2 (04/20/19 11:29 AM) Problem List Condition Effective Dates Status Health Status Informant Memory loss(Confirmed) Active Pacemaker(Confirmed) Active CVA (cerebrovascular Active accident)(Confirmed) COPD (chronic obstructive pulmonary Active disease)(Confirmed) Hyperlipidemia(Confirmed) Active Hypertension(Confirmed) Active Tremor(Confirmed) Active Allergies, Adverse Reactions, Alerts No Known Medication Allergies Medications Aricept 5 mg oral tablet 5 mg = 1 tab, PO, Bedtime, # 30 tab, 3 Refill(s), Pharmacy: [id number] Start Date: 04/20/19 Stop Date: 08/18/19 Status: OrderedTopamax 25 mg oral tablet 25 mg = 1 tab, PO, BID, # 60 tab, 3 Refill(s), Pharmacy: [id number] Start Date: 04/20/19 Stop Date: 08/18/19 Status: Ordered Results No data available for this section [...] Reg Smoking Cessation Counseling Yes entered on: 04/20/19 1May release medical information tp Son- Kvng Morfin Assessment and Plan No data available for this section
--- OUTSIDE RECORDS SUMMARY | 2019-07-20 12:12 | XMS REPORT | Summary of Care ---
:1950 Demographics Address [address] [place] [address] Email Address NONE Preferred Language Gabonese Marital Status Unknown Catholic Affiliation Unknown Race Other Additional Race(s) Unavailable Ethnic Group Not or Author Organization [facility] Neurology [place] Address [address] [place] [address]- phone Encounter HQ Marsha(FIN) [phone] Date(s): 03/23/19 - 03/23/19 [facility] [address] [place] [address]- [phone] Discharge Disposition: Home or Self Care Attending Physician: Rajendra Buenrostro MD Referring Physician: Yung Medrano MD Vital Signs Most recent to oldest [Reference Range]: 1 Height 175.26 cm (03/23/19 10:27 AM) Blood Pressure [90-140/60-90 mmHg] 161/75 mmHg *HI* (03/23/19 10:27 AM) Respiratory Rate [14-20 BRMIN] 16 BRMIN (03/23/19 10:27 AM) Peripheral Pulse Rate [60-100 bpm] 71 bpm (03/23/19 10:27 AM) Weight 68.636 kg (03/23/19 10:27 AM) Body Mass Index 22.35 m2 (03/23/19 10:27 AM) Problem List Condition Effective Dates Status Health Status Informant Memory loss(Confirmed) Active Pacemaker(Confirmed) Active CVA (cerebrovascular Active accident)(Confirmed) COPD (chronic obstructive pulmonary Active disease)(Confirmed) Hyperlipidemia(Confirmed) Active Hypertension(Confirmed) Active Tremor(Confirmed) Active Allergies, Adverse Reactions, Alerts No Known Medication Allergies Medications gabapentin 300 mg, PO, Daily, 0 Refill(s) Start Date: 03/23/19 Status: Orderedhydrochlorothiazide-losartan 25 mg-100 mg oral tablet 1 tab, PO, Daily, 0 Refill(s) Start Date: 03/23/19 Status: Orderedlosartan PO, Daily, 0 Refill(s) Start Date: 03/23/19 Stop Date: 03/23/19 Status: Discontinuedsertraline 50 mg, PO, Daily, 0 Refill(s) Start Date: 03/23/19 Status: Orderedtamsulosin 0.4 mg, PO, Daily, 0 Refill(s) Start Date: 03/23/19 Status: Ordered Results No data available for [...] Reg Smoking Cessation Counseling Yes entered on: 03/23/19 1May release medical information tp Kushal Morfin Assessment and Plan No data available for this section
--- OUTSIDE RECORDS SUMMARY | 2019-07-20 12:14 | XMS REPORT ---
:1950 Demographics Address [address] [place] [address] -son Email Address NONE Preferred Language Kenyan Marital Status Unknown Jainism Affiliation Unknown Race Unknown Additional Race(s) Unavailable White Unavailable Other Unavailable Ethnic Group Unknown Author Organization [facility] t Address [address] [place] [address] Dr. Wins[address] [place] [address] Care Team Providers Name Role Phone Rajendra Buenrostro Attending Clinician KARLA Attending Clinician Unavailable Stevie Nowak Attending Clinician SUZY AVERY Attending Clinician Unavailable GENO STERLING Attending Clinician Unavailable HAROON PHOENIX Admitting Clinician Unavailable Stevie Nowak Admitting Clinician SUZY AVERY Admitting Clinician Unavailable GENO STERLING Admitting Clinician Unavailable Problems This patient has no known problems. Allergies, Adverse Reactions, Alerts This patient has no known allergies or adverse reactions. Medications This patient has no known medications. Procedures This patient has no known procedures. Encounters Start End Encounter Admission Attending Care Care Encounter Source Date/Time Date/Time Type Type Clinicians Facility Department ID 2019-06-20 2019-06-20 Outpatient MARISELA Buenrostro [id number] [id number] 11:15:00 23:59:59 Rajendra 02 [facility] 2019-04-20 2019-04-20 Outpatient MARISELA BuenrostroSCHER [id number] 11:45:00 23:59:59 Rajendra 01 [facility] 2019-03-23 2019-03-23 Outpatient MARISELA BuenrostroSCHER [id number] 11:00:00 23:59:59 Rajendra 00 [facility] 2017-12-28 2017-12-30 [id number] [facility] 13:08:00 11:59:00 Divina Shukla Results Test Description Test Time Test Comments Results Result Sour e Comments EKG 2019-05-19 HEART RATE: 60 bpmRR 13:59:00 Interval: 1000 msAtrial Rate: 60 msP-R Interval: 108 msP Duration: 80 msP Horizontal Gantt: 250 degP Front Gantt: degQ Onset: 499 msQRSD Interval: 90 msQT Interval: 403 msQTcB: 403 msQTcF: 403 msQRS Horizontal Gantt: 8 degQRS Gantt: 27 degI-40 Horizontal Gantt: 38 degI-40 Front Gantt: 59 degT-40 Horizontal Gantt: -22 degT-40 Front Gantt: 21 degT Horizontal Gantt: 87 degT Wave Gantt: 96 degS-T Horizontal Gantt: 144 degS-T Front Gantt: 190 degECG Severity: - ABNORMAL ECG -ECG Impression: Atrial-paced rhythmECG Impression: Nonspecific repol abnormality, lateral leads EKG 2019-05-18 HEART RATE: 60 bpmRR 11:03:00 Interval: 1000 msAtrial Rate: 60 msP-R Interval: 177 msP Duration: 133 msP Horizontal Gantt: 255 degP Front Gantt: degQ Onset: 502 msQRSD Interval: 87 msQT Interval: 394 msQTcB: 394 msQTcF: 394 msQRS Horizontal Gantt: -1 degQRS Gantt: 20 degI-40 Horizontal Gantt: 16 degI-40 Front Gantt: 37 degT-40 Horizontal Gantt: -37 degT-40 Front Gantt: 9 degT Horizontal Gantt: 86 degT Wave Gantt: 68 degS-T Horizontal Gantt: 124 degS-T Front Gantt: 256 degECG Severity: - ABNORMAL ECG -ECG Impression: Atrial-paced rhythm CTA NECK 2019-05-16 [facility] 15:11:[address] [id number] IMAGING REPORTPatient Name: Tyron PENA of Service: [id number]: 69 Sex: M Order #: [id number] Room: [facility] 4SDOB: 1950 X-Ray Number: [id number] Record Number: [id number] Hospital Number: [id number] Physician: Pau GUTIÉRREZ Physician: ANDERSON LAW head and neck angiogram.History: Syncope and collapseComparison: CT head 05/15/2019Technique: IV contrast enhanced CT images of the head and neck wereperformed with sagittal and coronal reformatted images as well as 3-D MIPSimages. This CT exam was performed using one or more of the following dosereduction techniques: Automated exposure control, adjustment of the MAand/or KV according to patient size or use of iterative reconstructiontechniqu e.Findings:Right: The right common carotid artery is atherosclerotic and patent. Theright internal carotid artery is patent with atherosclerotic calcificationsat its origin leading to approximately 50% diameter stenosis. The petrous,cervical and cavernous portions of the right internal carotid artery arepatent. There are atherosclerotic calcifications of the cavernous portionof the right internal carotid artery.Left: The left common carotid artery is atherosclerotic and patent. Thereare atherosclerotic calcifications origin of the left internal carotidartery which lead to approximately 50% diameter stenosis. The petrous,cervical and cavernous portions of the left internal carotid artery arepatent. There are atherosclerotic calcifications cavernous portions of theleft internal carotid artery.There are atherosclerotic calcifications at the origin of the rightvertebral artery. The right vertebral artery is patent. The left vertebralartery is patent.CTA head:Each of the anterior cerebral arteries are patent.Each of the middle cerebral arteries are patent.Each of the posterior cerebral arteries are patent.The basilar artery is patent.There are postsurgical changes at the anterior left maxillary sinus. Thereis mucosal thickening at the inferior portion of the right maxillary sinus.There are centrilobular emphysematous changes throughout the lungs. Thereappears to be biapical scarring with an approximately 3.2 cm density at theright apex which may be due to scarring. Further evaluation with adedicated chest CT is recommended. Degenerative changes of the spine.Impression:1. There are atherosclerotic calcifications at the proximal portions ofeach internal carotid artery which lead to approximately 50% diameterstenosis.2. No evidence of an acute large vessel based intracranial vascularabnormality.3. There is biapical scarring with an approximately 3.2 cm opacity at theright apex which may be due to scarring. Further evaluation with adedicated chest CT is recommended for further evaluation.Electronica lly Signed By: Sebastian Pineda M.D., 05/16/2019 3:08 PMLegally authenticated by VENKATA GARCIA JR 2019-05-16 15:08:55 CTA HEAD 2019-05-16 [facility] 15:11:00 [facility] [place], [place] [address]LYDBSCRNPM IMAGING REPORTPatient Name: Tyron PENA of Service: [id number]: 69 Sex: M Order #: [id number] Room: [facility] 4SDOB: 1950 X-Ray Number: [id number] Record Number: [id number] Hospital Number: [id number] Physician: TAYE GUTIÉRREZOrdering Physician: ANDERSON LAW head and neck angiogram.History: Syncope and collapseComparison: CT head 05/15/2019Technique: IV contrast enhanced CT images of the head and neck wereperformed with sagittal and coronal reformatted images as well as 3-D MIPSimages. This CT exam was performed using one or more of the following dosereduction techniques: Automated exposure control, adjustment of the MAand/or KV according to patient size or use of iterative reconstructiontechniqu e.Findings:Right: The right common carotid artery is atherosclerotic and patent. Theright internal carotid artery is patent with atherosclerotic calcificationsat its origin leading to approximately 50% diameter stenosis. The petrous,cervical and cavernous portions of the right internal carotid artery arepatent. There are atherosclerotic calcifications of the cavernous portionof the right internal carotid artery.Left: The left common carotid artery is atherosclerotic and patent. Thereare atherosclerotic calcifications origin of the left internal carotidartery which lead to approximately 50% diameter stenosis. The petrous,cervical and cavernous portions of the left internal carotid artery arepatent. There are atherosclerotic calcifications cavernous portions of theleft internal carotid artery.There are atherosclerotic calcifications at the origin of the rightvertebral artery. The right vertebral artery is patent. The left vertebralartery is patent.CTA head:Each of the anterior cerebral arteries are patent.Each of the middle cerebral arteries are patent.Each of the posterior cerebral arteries are patent.The basilar artery is patent.There are postsurgical changes at the anterior left maxillary sinus. Thereis mucosal thickening at the inferior portion of the right maxillary sinus.There are centrilobular emphysematous changes throughout the lungs. Thereappears to be biapical scarring with an approximately 3.2 cm density at theright apex which may be due to scarring. Further evaluation with adedicated chest CT is recommended. Degenerative changes of the spine.Impression:1. There are atherosclerotic calcifications at the proximal portions ofeach internal carotid artery which lead to approximately 50% diameterstenosis.2. No evidence of an acute large vessel based intracranial vascularabnormality.3. There is biapical scarring with an approximately 3.2 cm opacity at theright apex which may be due to scarring. Further evaluation with adedicated chest CT is recommended for further evaluation.Electronica lly Signed By: Sebastian Pineda M.D., 05/16/2019 3:08 PMLegally authenticated by VENKATA GARCIA JR 2019-05-16 15:08:55 BMP, BASIC METABOLIC PANEL 2019-05-16 05:47:00 Test Item Value Reference Range Interpretation Comme nts SODIUM (test code = NA) 137 MMOL/L 137-145 K+ (test code = KSERUM) 4.1 MMOL/L 3.5-5.1 PLEASE NOTE NEW REFERENCE RANGE (S) IN EFFECT EFFECTIVE 10/10/2009 - NEW ANALYZER ([employer]ummelbox S 5600) CHLORIDE (test code = CL) 102 MMOL/L 98-107 CO2 (test code = CO2) 28 MMOL/L 22-30 BUN (test code = BUN) 16 MG/DL 9-20 CREA (test code = CREA) 0.9 MG/DL 0.8-1.5 GLUCOSE (test code = 96 MG/DL 70-99 Fasti ng glucose normal <100 GLUCOSE) MG/DL- [employer] recommend ation CALCIUM (test code = 9.0 MG/DL 8.4-10.2 CABLOOD) GFR (test code = GFR) 89 mL/min/1.73m2 A GFR of >90 mL/min/1.73m2 is considered norm al. [id number] 05:47:00 Test Item Value Reference Range Interpretation Comments MG (test code = MG) 2.0 mg/dL 1.6-2.3 LIPID [id number] 05:47:00 Test Item Value Reference Range Interpretation Comments CHOLEST (test code = 142 MG/DL 0-200 CHOLEST) TRIGLYCE (test code = 99 MG/DL 0-150 TRIGLYCE) HDL (test code = HDL) 38 MG/DL 30-65 NEGATI VE RISK FACTOR FOR HEART DISEA SE IF HDL >/=60 mg/dl MAJOR RISK FACTOR FOR HEART DISEASE IF HDL <40 mg/dL CALC LDL (test code = 84 MG/DL <100 CALC LDL) DIRECT [id number] 05:47:00 Test Item Value Reference Range Interpretation Comments DIR LDL (test code = LDL) 103 MG/DL 0-<100 H PROBRAIN NATRIURETIC [id number] 05:45:00 Test Item Value Reference Range Interpretation Comments NT-PROBNP (test code 175 pg/mL Exclusi on for heart = PROBNP) failure for pat ients of all ages is 300 pg/mL. Inclusion for h eart failure for pat ients age <50 is 450 pg/m L; for patients age 50 -75 is 900 pg/mL; for patients age >75 is 1800 pg/mL. [id number] 05:30:00 Test Item Value Reference Range Interpretation Comments WBC (test code = 5.3 K/UL 3.5-10.9 WBC) RBC (test code = 3.69 M/UL 4.3-5.7 L RBC) HGB (test code = 9.1 G/DL 13.0-17.9 L HGB) HCT (test code = 30.2 % 38-52 L HCT) MCV (test code = 81.8 FL 80-98 MCV) MCH (test code = 24.7 PG 28-32 L MCH) MCHC (test code = 30.1 G/DL 32.5-36.5 L MCHC) RDW (test code = 17.4 % 11.5-14.5 H RDW) PLT (test code = 164 K/UL 150-450 PLT) MPV (test code = 10.9 FL 7.4-10.4 H MPV) MANDIFF (test code = NO MANDIFF) SCAN (test code = NO SCAN) NEUT% (test code = 51.0 % 40-75 NEUT%) LYMPH% (test code = 31.9 % 24-44 LYMPH%) MONO% (test code = 11.3 % 0-13 MONO%) EOS% (test code = 3.9 % 0-4 EOS%) BASO % (test code = 1.5 % 0-2 BASO%) IG (test code = IG) 0 % 0-1 IG% (test code = 0.4 % 0-1 IG% = Metam yelocytes, IG%) Myelocytes, and Promyelocytes. (Immature neutr ophils not including " bands".) > 3% IG indic ates risk of sepsis NRBC% (test code = 0 /100 WBC NRBC%) ABS NEUT (test code 2.7 K/UL 1.2-7.2 = NEUT) [id number] 13:52:00 Test Item Value Reference Range Interpretation Comments GLUCOSE (test code = URGLU) NEGATIVE MG/DL NEG-100 BILIRUBN (test code = URBILI) NEGATIVE NEGATIVE KETONE (test code = URKET) NEGATIVE MG/DL NEGATIVE BLOOD (test code = URBLD) NEGATIVE UR PH (test code = URPH) 7.5 5.0-7.5 PROTEIN (test code = URPRO) NEGATIVE MG/DL NEGATIVE NITRITES (test code = URNIT) NEGATIVE NEGATIVE UROBILINGEN (test code = 1.0 EU/DL 0.2-1.0 URURO) LEUKOCYT (test code = URLEU) NEGATIVE NEGATIVE UA COLOR (test code = UA YELLOW YELLOW COLOR) CLARITY (test code = CLARITY) CLEAR CLEAR SP GRAV (test code = URSPGRAV) 1.014 1.000-1.025 UAMICRO (test code = UAMICRO) NO [id number] 12:26:00 Test Item Value Reference Range Interpretation Comments BLOOD TYPE (test O Rh Positive Comment for code = TYPE) Female s Rhogam may be indicated for patient dependi ng baby's Rh statu s. ANTIBODY SCREEN NEGATIVE NEGATIVE (test code = SCREEN) [id number] 11:56:00 Test Item Value Reference Range Interpretation Comments %CKMB (test code = %MB) 0.4 % CKMB (test code = CKMB) 0.3 NG/ML 0.22-2.4 CK (test code = CK) 69 U/L 55-170 CKINTERP (test code = NEGATIVE Negative CKINTERP) BMP, BASIC METABOLIC [id number] 11:52:00 Test Item Value Reference Range Interpretation Comments SODIUM (test code = 134 MMOL/L 137-145 L NA) K+ (test code = 4.2 MMOL/L 3.5-5.1 PLEASE NOTE NEW KSERUM) REFERENCE RANGE (S) IN EFFECT EFFECTIVE 010 - NEW ANALYZER (V ITROS 5600) CHLORIDE (test code 98 MMOL/L 98-107 = CL) CO2 (test code = 27 MMOL/L 22-30 CO2) BUN (test code = 18 MG/DL 9-20 BUN) CREA (test code = 0.9 MG/DL 0.8-1.5 CREA) GLUCOSE (test code 123 MG/DL 70-99 H Fasting glucose = GLUCOSE) normal <100 MG/ DL- [employer] recommendation* * CALCIUM (test code 9.1 MG/DL 8.4-10.2 = CABLOOD) GFR (test code = 89 A GFR of >9 0 GFR) mL/min/1.73m2 mL/min/1.73m2 is considered norm al. [id number] 11:50:00 Test Item Value Reference Range Interpretation Comments PTT (test code = 24.9 SECONDS 25.0-36.5 L HEPARIN THE RAPEUTIC PTT) RANGE 57-92 SEC ONDS PROTHROMBIN TIME WITH [id number] 11:50:00 Test Item Value Reference Range Interpretation Comments PROTHROMBIN TIME 13.0 SECONDS 10.1-12.7 H INR Usual R bret = 2 (test code = PT) to 3 for pr evention of deep vein thrombosis (DVT ) INR (test code = INR) 1.1 [id number] 11:49:00 Test Item Value Reference Range Interpretation Comments WBC (test code = 6.2 K/UL 3.5-10.9 WBC) RBC (test code = 3.89 M/UL 4.3-5.7 L RBC) HGB (test code = 9.8 G/DL 13.0-17.9 L HGB) HCT (test code = 32.4 % 38-52 L HCT) MCV (test code = 83.3 FL 80-98 MCV) MCH (test code = 25.2 PG 28-32 L MCH) MCHC (test code = 30.2 G/DL 32.5-36.5 L MCHC) RDW (test code = 17.6 % 11.5-14.5 H RDW) PLT (test code = 180 K/UL 150-450 PLT) MPV (test code = 11.0 FL 7.4-10.4 H MPV) MANDIFF (test code = NO MANDIFF) SCAN (test code = NO SCAN) NEUT% (test code = 62.6 % 40-75 NEUT%) LYMPH% (test code = 22.2 % 24-44 L LYMPH%) MONO% (test code = 9.2 % 0-13 MONO%) EOS% (test code = 4.2 % 0-4 H EOS%) BASO % (test code = 1.0 % 0-2 BASO%) IG (test code = IG) 0 % 0-1 IG% (test code = 0.8 % 0-1 IG% = Metam yelocytes, IG%) Myelocytes, and Promyelocytes. (Immature neutr ophils not including " bands".) > 3% IG indic ates risk of sepsis NRBC% (test code = 0 /100 WBC NRBC%) ABS NEUT (test code 3.9 K/UL 1.2-7.2 = NEUT) TROPONIN [id number] 11:15:00 Test Item Value Reference Range Interpretation Comments TROPER (test code = 0.01 NG/ML 0.0-0.08 TROPER) INTERPRETIVE DATA A POC TROPONIN OF </= 0.08 NG/ML IS CONSIDERED NEGA TIVE CHEST 1 VIEW [id number] 11:13:[address] [id number] IMAGING REPORTPatient Name: Tyron PENA of Service: [id number]: 69 Sex: M Order #: [id number] [facility] 1950 [facility] Number: [id number] Record Number: [id number] Hospital Number: [id number] Physician: Ernestina MANCUSO Physician: Haresh MANCUSO.05/15/2019 11:08 AMHistory: Hypertension.Technique: Single AP chest projection.Findings: Single chest projection demonstrates normal heart size and clearlungs. The osseous structures appear intact. Pacemaking device lead wiresappear intact.Impression:No acute-appearing cardiopulmonary abnormalities.Electronically Signed By: Kevin Nolasco M.D., 05/15/2019 11:11 AMLegally authenticated by QUINTEN Stokes 2019-05-15 11:11:07CT HEAD W/O CONT 2019-05-15 11:12:[address] [id number] IMAGING REPORTPatient Name: Tyron PENA of Service: [id number]: 69 Sex: M Order #: [id number] Room:QERDOB: 1950 X-Ray Number: [id number] Record Number: [id number] Hospital Number: [id number] Physician: RED MANCUSOOrdering Physician: KRISTINA MANCUSO HEAD:HISTORY: Declining state.TECHNIQUE: Unenhanced CT axial images of the brain with sagittal andcoronal reformatted images.This CT exam was performed using one or more of the following dosereduction techniques: Automated exposure control, adjustment of the MAand/or KV according to patient size or use of iterative reconstructiontechnique.FINDINGS: CT head images demonstrate no acute appearing intracranialabnormalities. The ventricles are symmetric and midline. The sosa-whitematter differentiation is intact. The calvarium appears intact.IMPRESSION:No acute appearing intracranial abnormalities.Electronically Signed By: Kevin Nolasco M.D., 05/15/2019 11:10 AMLegally authenticated by QUINTEN Stokes 2019-05-15 11:10:40BMP, BASIC METABOLIC [id number] 07:54:00 Test Item Value Reference Range Interpretation Comments SODIUM (test code = 136 MMOL/L 137-145 L NA) K+ (test code = 4.4 MMOL/L 3.5-5.1 PLEASE NOTE NEW KSERUM) REFERENCE RANGE (S) IN EFFECT EFFECTIVE 010 - NEW ANALYZER (V ITROS 5600) CHLORIDE (test code 101 MMOL/L 98-107 = CL) CO2 (test code = 29 MMOL/L 22-30 CO2) BUN (test code = 16 MG/DL 9-20 BUN) CREA (test code = 1.0 MG/DL 0.8-1.5 CREA) GLUCOSE (test code 94 MG/DL 70-99 Fasting glucose = GLUCOSE) normal <100 MG/ DL- [employer] recommendation* * CALCIUM (test code 9.0 MG/DL 8.4-10.2 = CABLOOD) GFR (test code = 79 A GFR of >9 0 GFR) mL/min/1.73m2 mL/min/1.73m2 is considered norm al. [id number] 06:50:00 Test Item Value Reference Range Interpretation Comments WBC (test code = 4.8 K/UL 3.5-10.9 WBC) RBC (test code = 3.74 M/UL 4.3-5.7 L RBC) HGB (test code = 9.3 G/DL 13.0-17.9 L HGB) HCT (test code = 30.9 % 38-52 L HCT) MCV (test code = 82.6 FL 80-98 MCV) MCH (test code = 24.9 PG 28-32 L MCH) MCHC (test code = 30.1 G/DL 32.5-36.5 L MCHC) RDW (test code = 17.7 % 11.5-14.5 H RDW) PLT (test code = 171 K/UL 150-450 PLT) MPV (test code = 11.3 FL 7.4-10.4 H MPV) MANDIFF (test code = NO MANDIFF) SCAN (test code = NO SCAN) NEUT% (test code = 44.9 % 40-75 NEUT%) LYMPH% (test code = 34.8 % 24-44 LYMPH%) MONO% (test code = 13.8 % 0-13 H MONO%) EOS% (test code = 4.4 % 0-4 H EOS%) BASO % (test code = 1.5 % 0-2 BASO%) IG (test code = IG) 0 % 0-1 IG% (test code = 0.6 % 0-1 IG% = Metam yelocytes, IG%) Myelocytes, and Promyelocytes. (Immature neutr ophils not including " bands".) > 3% IG indic ates risk of sepsis NRBC% (test code = 0 /100 WBC NRBC%) ABS NEUT (test code 2.1 K/UL 1.2-7.2 = NEUT) [id number] 05:11:00 Test Item Value Reference Range Interpretation Comments WBC (test code = 4.0 K/UL 3.5-10.9 WBC) RBC (test code = 3.34 M/UL 4.3-5.7 L RBC) HGB (test code = 8.3 G/DL 13.0-17.9 L HGB) HCT (test code = 27.5 % 38-52 L HCT) MCV (test code = 82.3 FL 80-98 MCV) MCH (test code = 24.9 PG 28-32 L MCH) MCHC (test code = 30.2 G/DL 32.5-36.5 L MCHC) RDW (test code = 17.8 % 11.5-14.5 H RDW) PLT (test code = 143 K/UL 150-450 L PLT) MPV (test code = 10.9 FL 7.4-10.4 H MPV) MANDIFF (test code = NO MANDIFF) SCAN (test code = NO SCAN) NEUT% (test code = 49.0 % 40-75 NEUT%) LYMPH% (test code = 31.9 % 24-44 LYMPH%) MONO% (test code = 13.2 % 0-13 H MONO%) EOS% (test code = 3.5 % 0-4 EOS%) BASO % (test code = 1.7 % 0-2 BASO%) IG (test code = IG) 0 % 0-1 IG% (test code = 0.7 % 0-1 IG% = Metam yelocytes, IG%) Myelocytes, and Promyelocytes. (Immature neutr ophils not including " bands".) > 3% IG indic ates risk of sepsis NRBC% (test code = 0 /100 WBC NRBC%) ABS NEUT (test code 2.0 K/UL 1.2-7.2 = NEUT) PROTHROMBIN TIME WITH [id number] 03:45:00 Test Item Value Reference Range Interpretation Comments PROTHROMBIN TIME 13.3 SECONDS 10.1-12.7 H INR Usual R bret = 2 (test code = PT) to 3 for pr evention of deep vein thrombosis (DVT ) INR (test code = INR) 1.2 [id number] 03:45:00 Test Item Value Reference Range Interpretation Comments PTT (test code = 25.2 SECONDS 25.0-36.5 HEPARIN THE RAPEUTIC PTT) RANGE 57-92 SEC ONDS BMP, BASIC METABOLIC [id number] 03:45:00 Test Item Value Reference Range Interpretation Comments SODIUM (test code = 135 MMOL/L 137-145 L NA) K+ (test code = 3.7 MMOL/L 3.5-5.1 PLEASE NOTE NEW KSERUM) REFERENCE RANGE (S) IN EFFECT EFFECTIVE 010 - NEW ANALYZER (V ITROS 5600) CHLORIDE (test code 102 MMOL/L 98-107 = CL) CO2 (test code = 27 MMOL/L 22-30 CO2) BUN (test code = 18 MG/DL 9-20 BUN) CREA (test code = 0.9 MG/DL 0.8-1.5 CREA) GLUCOSE (test code 114 MG/DL 70-99 H Fasting glucose = GLUCOSE) normal <100 MG/ DL- [employer] recommendation* * CALCIUM (test code 8.6 MG/DL 8.4-10.2 = CABLOOD) GFR (test code = 89 A GFR of >9 0 GFR) mL/min/1.73m2 mL/min/1.73m2 is considered norm al. [id number] 03:45:00 Test Item Value Reference Range Interpretation Comments MG (test code = MG) 1.9 mg/dL 1.6-2.3 [id number] 03:45:00 Test Item Value Reference Range Interpretation Comments PHOSPHOR (test code = PHOSPHOR) 3.3 MG/DL 2.5-4.5 [id number] 03:38:00 Test Item Value Reference Range Interpretation Comments WBC (test code = 4.4 K/UL 3.5-10.9 WBC) RBC (test code = 3.16 M/UL 4.3-5.7 L RBC) HGB (test code = 7.9 G/DL 13.0-17.9 L HGB) HCT (test code = 25.9 % 38-52 L HCT) MCV (test code = 82.0 FL 80-98 MCV) MCH (test code = 25.0 PG 28-32 L MCH) MCHC (test code = 30.5 G/DL 32.5-36.5 L MCHC) RDW (test code = 17.6 % 11.5-14.5 H RDW) PLT (test code = 148 K/UL 150-450 L CHECKED x2 PLT) MPV (test code = 11.3 FL 7.4-10.4 H MPV) MANDIFF (test code = NO MANDIFF) SCAN (test code = NO SCAN) NEUT% (test code = 49.7 % 40-75 NEUT%) LYMPH% (test code = 34.8 % 24-44 LYMPH%) MONO% (test code = 10.0 % 0-13 MONO%) EOS% (test code = 3.2 % 0-4 EOS%) BASO % (test code = 1.6 % 0-2 BASO%) IG (test code = IG) 0 % 0-1 IG% (test code = 0.7 % 0-1 IG% = Metam yelocytes, IG%) Myelocytes, and Promyelocytes. (Immature neutr ophils not including " bands".) > 3% IG indic ates risk of sepsis NRBC% (test code = 0 /100 WBC NRBC%) ABS NEUT (test code 2.2 K/UL 1.2-7.2 = NEUT) TROPONIN [id number] 20:10:00 Test Item Value Reference Range Interpretation Comments TROPER (test code = 0.00 NG/ML 0.0-0.08 TROPER) INTERPRETIVE DATA A POC TROPONIN OF </= 0.08 NG/ML IS CONSIDERED NEGA TIVE HEPATITIS C ANTIBODY [id number] 19:13:00 Test Item Value Reference Range Interpretation Comments SCRN HCV (test code NEGATIVE NEGATIVE Hepatiti s C Antibody test = SCRN HCV) is for screenin g purposes only. All react radha will be confirmed by additional test ing. ER SCREEN FOR HIV 19:13:00 Test Item Value Reference Range Interpretation Comments HIV 1/2 AB (test NEGATIVE NEGATIVE This test i s used for code = SCRN HIV) SCREENING p urposes only. All reactive re sults are prelimenary and confirmation re sults will follow. D-DIMER, [id number] 18:51:00 Test Item Value Reference Range Interpretation Comments D-DIMER (test 407 ng/mL (FEU) 0-500 VALUES OF Q UANTITATIVE code = DDIMER) D-DIMER LESS THAN 499 ng/mL HAVE BEEN REPORTED TO BE ASSOCIATED WITH A LOW PROBABILITY OF DEEP VEIN THROMBOSIS/PULM ONARYEMB OLISM. THIS GARCÍA T ALONE SHOULD NOT BE U SED TO RULE OUT DVT/PE . CHEST 1 VIEW [id number] 18:05:[address] [id number] IMAGING REPORTPatient Name: Tyron PENA of Service: [id number]: 69 Sex: M Order #: [id number] Room: E RSDOB: 1950 X-Ray Number: [id number] Record Number: [id number] Hospital Number: [id number] Physician: DEDRA HUYNH TANOrdering Physician: LAUREL CODY 1 VIEW PORTABLE 05/13/2019 5:46 PMHistory: Chest Pain without Trauma/Injury, hypertension, [place], CAD, coronarystents.Comparisons: None Available.FINDINGS:Heart size is normal.There is no focal lung consolidation.There is no definite pleural effusion or pneumothorax identified.Hyperinflation suggests COPD.There is apical pleural thickening bilaterally.Left-sided pacemaker is in good position.IMPRESSION:No acute cardiopulmonary process.Electronically Signed By: Cameron Amaya M.D., 05/13/2019 6:03 PMLegally authenticated by ORLANDO DOWNS 2019-05-13 18:03:07PROBRAIN NATRIURETIC [id number] 17:38:00 Test Item Value Reference Range Interpretation Comments NT-PROBNP (test code 151 pg/mL Exclusi on for heart = PROBNP) failure for pat ients of all ages is 300 pg/mL. Inclusion for h eart failure for pat ients age <50 is 450 pg/m L; for patients age 50 -75 is 900 pg/mL; for patients age >75 is 1800 pg/mL. [id number] 17:38:00 Test Item Value Reference Range Interpretation Comments %CKMB (test code = %MB) 0.7 % CKMB (test code = CKMB) 0.8 NG/ML 0.22-2.4 CK (test code = CK) 110 U/L 55-170 CKINTERP (test code = NEGATIVE Negative CKINTERP) BMP, BASIC METABOLIC [id number] 17:38:00 Test Item Value Reference Range Interpretation Comments SODIUM (test code = 137 MMOL/L 137-145 NA) K+ (test code = 3.6 MMOL/L 3.5-5.1 PLEASE NOTE NEW KSERUM) REFERENCE RANGE (S) IN EFFECT EFFECTIVE 010 - NEW ANALYZER (V ITROS 5600) CHLORIDE (test code 100 MMOL/L 98-107 = CL) CO2 (test code = 27 MMOL/L 22-30 CO2) BUN (test code = 16 MG/DL 9-20 BUN) CREA (test code = 1.0 MG/DL 0.8-1.5 CREA) GLUCOSE (test code 108 MG/DL 70-99 H Fasting glucose = GLUCOSE) normal <100 MG/ DL- [employer] recommendation* * CALCIUM (test code 9.5 MG/DL 8.4-10.2 = CABLOOD) GFR (test code = 79 A GFR of >9 0 GFR) mL/min/1.73m2 mL/min/1.73m2 is considered norm al. [id number] 17:19:00 Test Item Value Reference Range Interpretation Comments WBC (test code = 5.7 K/UL 3.5-10.9 WBC) RBC (test code = 4.46 M/UL 4.3-5.7 RBC) HGB (test code = 10.9 G/DL 13.0-17.9 L HGB) HCT (test code = 35.9 % 38-52 L HCT) MCV (test code = 80.5 FL 80-98 MCV) MCH (test code = 24.4 PG 28-32 L MCH) MCHC (test code = 30.4 G/DL 32.5-36.5 L MCHC) RDW (test code = 17.7 % 11.5-14.5 H RDW) PLT (test code = 202 K/UL 150-450 PLT) MPV (test code = 11.1 FL 7.4-10.4 H MPV) MANDIFF (test code = NO MANDIFF) SCAN (test code = NO SCAN) NEUT% (test code = 52.7 % 40-75 NEUT%) LYMPH% (test code = 32.2 % 24-44 LYMPH%) MONO% (test code = 10.3 % 0-13 MONO%) EOS% (test code = 2.4 % 0-4 EOS%) BASO % (test code = 1.7 % 0-2 BASO%) IG (test code = IG) 0 % 0-1 IG% (test code = 0.7 % 0-1 IG% = Metam yelocytes, IG%) Myelocytes, and Promyelocytes. (Immature neutr ophils not including " bands".) > 3% IG indic ates risk of sepsis NRBC% (test code = 0 /100 WBC NRBC%) ABS NEUT (test code 3.0 K/UL 1.2-7.2 = NEUT) TROPONIN [id number] 17:15:00 Test Item Value Reference Range Interpretation Comments TROPER (test code = 0.01 NG/ML 0.0-0.08 TROPER) INTERPRETIVE DATA A POC TROPONIN OF </= 0.08 NG/ML IS CONSIDERED NEGA TIVE [id number] 05:42:00 Test Item Value Reference Range Interpretation Comments MAGNESIUM (BEAKER) (test code = 1.9 mg/dL 1.6-2.6 627) BASIC METABOLIC [id number] 05:42:00 Test Item Value Reference Range Interpretation Comments SODIUM (BEAKER) 136 meq/L 136-145 (test code = 381) POTASSIUM (BEAKER) 3.8 meq/L 3.5-5.1 (test code = 379) CHLORIDE (BEAKER) 107 meq/L 98-107 (test code = 382) CO2 (BEAKER) (test 24 meq/L 22-29 code = 355) BLOOD UREA NITROGEN 14 mg/dL 7-21 (BEAKER) (test code = 354) CREATININE (BEAKER) 0.84 mg/dL 0.57-1.25 (test code = 358) GLUCOSE RANDOM 113 mg/dL 70-105 H (BEAKER) (test code = 652) CALCIUM (BEAKER) 8.1 mg/dL 8.4-10.2 L (test code = 697) EGFR (BEAKER) (test 91 mL/min/1.73 ESTIMA YUSUF GFR IS code = 1092) sq m NOT ACCURATE CREATININE CLEARANCE IN PREDICTING GLOMERULAR FILTRATION RATE . ESTIMATED GFR I S NOT APPLICABLE FOR DIALYSIS PATIEN TS. CBC W/PLT COUNT & AUTO [id number] 04:43:00 Test Item Value Reference Range Interpretation Comments WHITE BLOOD CELL COUNT (BEAKER) 4.7 K/ L 3.5-10.5 (test code = 775) RED BLOOD CELL COUNT (BEAKER) 3.54 M/ L 4.63-6.08 L (test code = 761) HEMOGLOBIN (BEAKER) (test code = 8.8 GM/DL 13.7-17.5 L 410) HEMATOCRIT (BEAKER) (test code = 28.9 % 40.1-51.0 L 411) MEAN CORPUSCULAR VOLUME (BEAKER) 81.6 fL 79.0-92.2 (test code = 753) MEAN CORPUSCULAR HEMOGLOBIN 24.9 pg 25.7-32.2 L (BEAKER) (test code = 751) MEAN CORPUSCULAR HEMOGLOBIN CONC 30.4 GM/DL 32.3-36.5 L (BEAKER) (test code = 752) RED CELL DISTRIBUTION WIDTH 18.3 % 11.6-14.4 H (BEAKER) (test code = 412) PLATELET COUNT (BEAKER) (test 156 K/CU MM 150-450 code = 756) MEAN PLATELET VOLUME (BEAKER) 11.0 fL 9.4-12.4 (test code = 754) NUCLEATED RED BLOOD CELLS 0 /100 WBC 0-0 (BEAKER) (test code = 413) NEUTROPHILS RELATIVE PERCENT 55 % (BEAKER) (test code = 429) LYMPHOCYTES RELATIVE PERCENT 29 % (BEAKER) (test code = 430) MONOCYTES RELATIVE PERCENT 11 % (BEAKER) (test code = 431) EOSINOPHILS RELATIVE PERCENT 3 % (BEAKER) (test code = 432) BASOPHILS RELATIVE PERCENT 2 % (BEAKER) (test code = 437) NEUTROPHILS ABSOLUTE COUNT 2.59 K/ L 1.78-5.38 (BEAKER) (test code = 670) LYMPHOCYTES ABSOLUTE COUNT 1.34 K/ L 1.32-3.57 (BEAKER) (test code = 414) MONOCYTES ABSOLUTE COUNT (BEAKER) 0.51 K/ L 0.30-0.82 (test code = 415) EOSINOPHILS ABSOLUTE COUNT 0.15 K/ L 0.04-0.54 (BEAKER) (test code = 416) BASOPHILS ABSOLUTE COUNT (BEAKER) 0.07 K/ L 0.01-0.08 (test code = 417) IMMATURE GRANULOCYTES-RELATIVE 1 % 0-1 PERCENT (BEAKER) (test code = 2801) [id number] 19:48:00 Test Item Value Reference Range Interpretation Comments ACTIVATED CLOTTING TIME [address] ED [address] [facility] 6720 (BEAKER) (test code = NILESH Sims [facility] 441) [address] [id number] 09:20:00 Test Item Value Reference Range Interpretation Comments PARTIAL THROMBOPLASTIN TIME 76.2 seconds 22.5-36.0 H (BEAKER) (test code = 760) CREATINE KINASE (CK)2018-04-08 07:02:00 Test Item Value Reference Range Interpretation Comments CREATINE KINASE TOTAL (BEAKER) (test 74 U/L 29-200 code = 380) LACTIC ACID, VENOUS, WHOLE [id number] 06:56:00 Test Item Value Reference Range Interpretation Comments LACTATE BLOOD VENOUS (2) (BEAKER) 1.1 mmol/L 0.5-2.2 (test code = 2872) NERVE CONDUCTION STUDIES; 3-4 [id number] 06:53:00Select Extremity- >Right Leg Reason for exam:->painBaylor San Francisco [facility] HospitalNeurophysiology DepartmentELECTROMYOGRAPHY / NERVE CONDUCTION STUDY [address] [place] [address] Name: Mami Pena : Date of : [...] Ankle-Fibula (head) 7.3 ms 275 mm 38 m/sKnee 14.6ms 5.1 mV Fibula (head)-Knee 3.0 ms 120 mm 40 m/sTibial.RAnkle 3.9 ms 5.1 mV Abductor hallucis-Ankle3.9 ms Popliteal fossa 15.0 ms 3.1 mV Ankle-Popliteal fossa 11.1 ms 440 mm 40 m/sF-Wave StudiesNerve M-Latency F- LatencyPeroneal.R 14.6 53.0Tibial.R 15.0 57.3Sensory Nerve Conduction:Nerve and Site Onset Latency PeakLatency Amplitude Segment LatencyDifference Distance ConductionVelocitySural.RLower leg 2.9 ms 3.7 ms 12 𔕳V Ankle-Lower leg 2.9 ms 140 mm 48 m/sNeedle EMG Examination: Insertional Spontaneous Activity Volitional MUAPsMuscle Insertional Fibs +Wave Fasc Duration Amplitude Poly P attern EffortTibialis anterior.R Normal None None None Normal Normal None Normal Max.Gastrocnemius (Medial head).R Normal None None None Normal [...] the right lower limb. Melody Benavidez M.D. 06:53 [id number] 03:03:00 Test Item Value Reference Range Interpretation Comments PARTIAL THROMBOPLASTIN TIME 82.1 seconds 22.5-36.0 H (BEAKER) (test code = 760) CT, CTA AAA, W/ SAMMY.EXT.[id number] 16:54:00Addendum BeginsREPORT STATUS:A Addendum: I agree with the previously described non vascular findings. Signed: Angel Payne MDReport Verified Date/Time: 04/07/2018 16:54:33 Reading Location: [place] [address] Angio Body Reading RoomAddendum EndsFINAL REPORT CT [...] the dynamic passage of intravenous contrast material. Multi- planar 3-D volume-rendering reconstruction was performed using an [...] The JESSY is patent. Single left and righ t renal arteries are seen with minimal nonobstructive atherosclerosis identified. Single left and right renal veins are seen draining normally into the IVC. The left common iliac artery and calcification present and is not filled by contrast indicating occlusion, extending through the left external il iac artery and much of the left common [...] aortic pathology, specifically, there is no dissection, in tramural hematoma, or contained rupture. Quantitative dimension of the abdominal aorta are as noted. 2. 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 There is calcification seen at the ostium of the right common iliac artery, at image 94, with substantial calcification identified, with minimum luminal diameter of approximately 3 x 4 mm that may suggest mild to moderate lesion. Haemodynamic significance is difficult to comm ented upon. A stent is identified in remainder [...] dictated regarding the non-vascular findings by the Podiatry Professor Radiologist. Signed: Steve Musa Verified Date/Time: 04/07/2018 15:32:19 Reading Location: [place] [address] Cardiology MRI TROPONIN [id number] 11:39:00 Test Item Value Reference Range Interpretation Comments TROPONIN I (BEAKER) (test code = 397) < ng/mL 0.00-0.03 Troponin I (TnI) levels [...] acute neurological disease, and persistent tachyarrhythmia.BASIC METABOLIC [id number] 16:14:00 Test Item Value Reference Range Interpretation Comments SODIUM (BEAKER) 133 meq/L 136-145 L (test code = 381) POTASSIUM (BEAKER) 3.9 meq/L 3.5-5.1 (test code = 379) CHLORIDE (BEAKER) 99 meq/L 98-107 (test code = 382) CO2 (BEAKER) (test 23 meq/L 22-29 code = 355) BLOOD UREA NITROGEN 14 mg/dL 7-21 (BEAKER) (test code = 354) CREATININE (BEAKER) 1.02 mg/dL 0.57-1.25 (test code = 358) GLUCOSE RANDOM 102 mg/dL 70-105 (BEAKER) (test code = 652) CALCIUM (BEAKER) 9.7 mg/dL 8.4-10.2 (test code = 697) EGFR (BEAKER) (test 72 mL/min/1.73 ESTIMA YUSUF GFR IS code = 1092) sq m NOT ACCURATE CREATININE CLEARANCE IN PREDICTING GLOMERULAR FILTRATION RATE . ESTIMATED GFR I S NOT APPLICABLE FOR DIALYSIS PATIEN TS. [id number] 16:05:00 Test Item Value Reference Range Interpretation Comments PROTIME (BEAKER) (test code = 13.8 seconds 11.7-14.7 759) INR (BEAKER) (test code = 370) 1.1 <=5.9 PARTIAL THROMBOPLASTIN TIME 31.6 seconds 22.5-36.0 (BEAKER) (test code = 760) RECOMMENDED COUMADIN/WARFARIN INR THERAPY RANGESSTANDARD DOSE: 2.0 - 3.0 Includes: PROPHYLAXIS forvenous thrombosis, systemic embolization; TREATMENT for venous thrombosis and/or pulmonary embolus.HIGH RISK: Target INR is 2.5-3.5 for patients with mechanical heart valves.CBC W/PLT COUNT & AUTO DIFFERENTIAL 2018-04-06 15:56:00 Test Item Value Reference Range Interpretation Comments WHITE BLOOD CELL COUNT (BEAKER) 9.2 K/ L 3.5-10.5 (test code = 775) RED BLOOD CELL COUNT (BEAKER) 4.75 M/ L 4.63-6.08 (test code = 761) HEMOGLOBIN (BEAKER) (test code = 11.8 GM/DL 13.7-17.5 L 410) HEMATOCRIT (BEAKER) (test code = 38.8 % 40.1-51.0 L 411) MEAN CORPUSCULAR VOLUME (BEAKER) 81.7 fL 79.0-92.2 (test code = 753) MEAN CORPUSCULAR HEMOGLOBIN 24.8 pg 25.7-32.2 L (BEAKER) (test code = 751) MEAN CORPUSCULAR HEMOGLOBIN CONC 30.4 GM/DL 32.3-36.5 L (BEAKER) (test code = 752) RED CELL DISTRIBUTION WIDTH 18.6 % 11.6-14.4 H (BEAKER) (test code = 412) PLATELET COUNT (BEAKER) (test 254 K/CU MM 150-450 code = 756) MEAN PLATELET VOLUME (BEAKER) 11.4 fL 9.4-12.4 (test code = 754) NUCLEATED RED BLOOD CELLS 0 /100 WBC 0-0 (BEAKER) (test code = 413) NEUTROPHILS RELATIVE PERCENT 62 % (BEAKER) (test code = 429) LYMPHOCYTES RELATIVE PERCENT 27 % (BEAKER) (test code = 430) MONOCYTES RELATIVE PERCENT 9 % (BEAKER) (test code = 431) EOSINOPHILS RELATIVE PERCENT 1 % (BEAKER) (test code = 432) BASOPHILS RELATIVE PERCENT 1 % (BEAKER) (test code = 437) NEUTROPHILS ABSOLUTE COUNT 5.71 K/ L 1.78-5.38 H (BEAKER) (test code = 670) LYMPHOCYTES ABSOLUTE COUNT 2.47 K/ L 1.32-3.57 (BEAKER) (test code = 414) MONOCYTES ABSOLUTE COUNT (BEAKER) 0.83 K/ L 0.30-0.82 H (test code = 415) EOSINOPHILS ABSOLUTE COUNT 0.07 K/ L 0.04-0.54 (BEAKER) (test code = 416) BASOPHILS ABSOLUTE COUNT (BEAKER) 0.11 K/ L 0.01-0.08 H (test code = 417) IMMATURE GRANULOCYTES-RELATIVE 1 % 0-1 PERCENT (BEAKER) (test code = 2801) TSH/FREE T4 IF [id number] 04:03:00 Test Item Value Reference Range Interpretation Comments THYROID STIMULATING HORMONE 3.16 uIU/mL 0.35-4.94 (BEAKER) (test code = 772) BASIC METABOLIC [id number] 03:35:00 Test Item Value Reference Range Interpretation Comments SODIUM (BEAKER) 135 meq/L 136-145 L (test code = 381) POTASSIUM (BEAKER) 3.9 meq/L 3.5-5.1 (test code = 379) CHLORIDE (BEAKER) 106 meq/L 98-107 (test code = 382) CO2 (BEAKER) (test 22 meq/L 22-29 code = 355) BLOOD UREA NITROGEN 13 mg/dL 7-21 (BEAKER) (test code = 354) CREATININE (BEAKER) 0.81 mg/dL 0.57-1.25 (test code = 358) GLUCOSE RANDOM 91 mg/dL 70-105 (BEAKER) (test code = 652) CALCIUM (BEAKER) 8.5 mg/dL 8.4-10.2 (test code = 697) EGFR (BEAKER) (test 95 mL/min/1.73 ESTIMA YUSUF GFR IS code = 1092) sq m NOT ACCURATE CREATININE CLEARANCE IN PREDICTING GLOMERULAR FILTRATION RATE . ESTIMATED GFR I S NOT APPLICABLE FOR DIALYSIS PATIEN TS. CBC W/PLT COUNT & AUTO [id number] 03:24:00 Test Item Value Reference Range Interpretation Comments WHITE BLOOD CELL COUNT (BEAKER) 5.2 K/ L 3.5-10.5 (test code = 775) RED BLOOD CELL COUNT (BEAKER) 4.07 M/ L 4.63-6.08 L (test code = 761) HEMOGLOBIN (BEAKER) (test code = 11.2 GM/DL 13.7-17.5 L 410) HEMATOCRIT (BEAKER) (test code = 35.9 % 40.1-51.0 L 411) MEAN CORPUSCULAR VOLUME (BEAKER) 88.2 fL 79.0-92.2 (test code = 753) MEAN CORPUSCULAR HEMOGLOBIN 27.5 pg 25.7-32.2 (BEAKER) (test code = 751) MEAN CORPUSCULAR HEMOGLOBIN CONC 31.2 GM/DL 32.3-36.5 L (BEAKER) (test code = 752) RED CELL DISTRIBUTION WIDTH 16.9 % 11.6-14.4 H (BEAKER) (test code = 412) PLATELET COUNT (BEAKER) (test 161 K/CU MM 150-450 code = 756) MEAN PLATELET VOLUME (BEAKER) 10.7 fL 9.4-12.4 (test code = 754) NUCLEATED RED BLOOD CELLS 0 /100 WBC 0-0 (BEAKER) (test code = 413) NEUTROPHILS RELATIVE PERCENT 51 % (BEAKER) (test code = 429) LYMPHOCYTES RELATIVE PERCENT 32 % (BEAKER) (test code = 430) MONOCYTES RELATIVE PERCENT 11 % (BEAKER) (test code = 431) EOSINOPHILS RELATIVE PERCENT 3 % (BEAKER) (test code = 432) BASOPHILS RELATIVE PERCENT 2 % (BEAKER) (test code = 437) NEUTROPHILS ABSOLUTE COUNT 2.67 K/ L 1.78-5.38 (BEAKER) (test code = 670) LYMPHOCYTES ABSOLUTE COUNT 1.68 K/ L 1.32-3.57 (BEAKER) (test code = 414) MONOCYTES ABSOLUTE COUNT (BEAKER) 0.58 K/ L 0.30-0.82 (test code = 415) EOSINOPHILS ABSOLUTE COUNT 0.18 K/ L 0.04-0.54 (BEAKER) (test code = 416) BASOPHILS ABSOLUTE COUNT (BEAKER) 0.08 K/ L 0.01-0.08 (test code = 417) IMMATURE GRANULOCYTES-RELATIVE 1 % 0-1 PERCENT (BEAKER) (test code = 2801) [facility] [id number] 20:57:00 Test Item Value Reference Range Interpretation Comments TROPONIN I (KYARA) (test code = 397) < ng/mL 0.00-0.03 Troponin I (TnI) levels [...] persistent tachyarrhythmia.CT BRAIN WITHOUT IV CONTRAST - PORTABLE 2017-12-01 18:41:00Reason for exam:->Post tPAFINAL REPORT CT head [...] with MRI is recommended. Signed: Wilbert Quintanilla [facility] Verified Date/Time: 12/01/2017 18:41:06 Reading Location: [facility] Radiology Reading Room [facility] (HULMBOLDT [id number] 17:00:00 Test Item Value Reference Range Interpretation Comments TROPONIN I (KYARA) (test code = 397) < ng/mL 0.00-0.03 Troponin I (TnI) levels [...] failure, acidosis, acute neurological disease, and persistent tachyarrhythmia.[id number] 16:23:00 Test Item Value Reference Range Interpretation Comments POTASSIUM (BEAKER) (test code = 3.7 meq/L 3.5-5.1 379) Check Serum Potassium level 2 hours after oral potassium replacement completed or 30 min after intravenous potassium replacement.[id number] 11:59:00 Test Item Value Reference Range Interpretation Comments MAGNESIUM (BEAKER) 2.2 mg/dL 1.6-2.6 Specimen slightly (test code = 627) hemolyzed [id number] 11:59:00 Test Item Value Reference Range Interpretation Comments PHOSPHORUS (BEAKER) 2.6 mg/dL 2.3-4.7 Specimen slightly (test code = 604) hemolyzed HEMOGLOBIN [id number] 11:49:00 Test Item Value Reference Range Interpretation Comments HEMOGLOBIN A1C (BEAKER) (test code = 6.0 % 4.3-6.1 368) TROPONIN [id number] 08:40:00 Test Item Value Reference Range Interpretation Comments TROPONIN I (BEAKER) (test code = 397) < ng/mL 0.00-0.03 Troponin I (TnI) levels [...] acidosis, acute neurological disease, and persistent tachyarrhythmia.LIPID [id number] 04:39:00 Test Item Value Reference Range Interpretation Comments TRIGLYCERIDES (BEAKER) (test code = 119 mg/dL 540) CHOLESTEROL (BEAKER) (test code = 144 mg/dL 631) HDL CHOLESTEROL (BEAKER) (test code 26 mg/dL = 976) LDL CHOLESTEROL CALCULATED (BEAKER) 94 mg/dL (test code = 633) Triglyceride Reference Range: Low Risk <150 Borderline 150-199 High Risk 200-499 Very High Risk >=500Cholesterol Reference Range: Low Risk <200 Borderline 200-239 High Risk >240HDL Cholesterol Reference Range: Low Risk >=60 High Risk <40LDL Cholesterol Reference Range: Optimal <100 Near Optimal 100-129 Borderline 130-159 High 160-189 Very High >=190 FastingBASIC METABOLIC [id number] 04:39:00 Test Item Value Reference Range Interpretation Comments SODIUM (BEAKER) 136 meq/L 136-145 (test code = 381) POTASSIUM (BEAKER) 3.7 meq/L 3.5-5.1 (test code = 379) CHLORIDE (BEAKER) 105 meq/L 98-107 (test code = 382) CO2 (BEAKER) (test 23 meq/L 22-29 code = 355) BLOOD UREA NITROGEN 14 mg/dL 7-21 (BEAKER) (test code = 354) CREATININE (BEAKER) 0.86 mg/dL 0.57-1.25 (test code = 358) GLUCOSE RANDOM 94 mg/dL 70-105 (BEAKER) (test code = 652) CALCIUM (BEAKER) 8.8 mg/dL 8.4-10.2 (test code = 697) EGFR (BEAKER) (test 88 mL/min/1.73 ESTIMA YUSUF GFR IS code = 1092) sq m NOT ACCURATE CREATININE CLEARANCE IN PREDICTING GLOMERULAR FILTRATION RATE . ESTIMATED GFR I S NOT APPLICABLE FOR DIALYSIS PATIEN TS. FastingCBC W/PLT COUNT & AUTO [id number] 04:25:00 Test Item Value Reference Range Interpretation Comments WHITE BLOOD CELL COUNT (BEAKER) 5.0 K/ L 3.5-10.5 (test code = 775) RED BLOOD CELL COUNT (BEAKER) 4.03 M/ L 4.63-6.08 L (test code = 761) HEMOGLOBIN (BEAKER) (test code = 11.3 GM/DL 13.7-17.5 L 410) HEMATOCRIT (BEAKER) (test code = 35.2 % 40.1-51.0 L 411) MEAN CORPUSCULAR VOLUME (BEAKER) 87.3 fL 79.0-92.2 (test code = 753) MEAN CORPUSCULAR HEMOGLOBIN 28.0 pg 25.7-32.2 (BEAKER) (test code = 751) MEAN CORPUSCULAR HEMOGLOBIN CONC 32.1 GM/DL 32.3-36.5 L (BEAKER) (test code = 752) RED CELL DISTRIBUTION WIDTH 16.9 % 11.6-14.4 H (BEAKER) (test code = 412) PLATELET COUNT (BEAKER) (test 179 K/CU MM 150-450 code = 756) MEAN PLATELET VOLUME (BEAKER) 11.6 fL 9.4-12.4 (test code = 754) NUCLEATED RED BLOOD CELLS 0 /100 WBC 0-0 (BEAKER) (test code = 413) NEUTROPHILS RELATIVE PERCENT 48 % (BEAKER) (test code = 429) LYMPHOCYTES RELATIVE PERCENT 36 % (BEAKER) (test code = 430) MONOCYTES RELATIVE PERCENT 10 % (BEAKER) (test code = 431) EOSINOPHILS RELATIVE PERCENT 3 % (BEAKER) (test code = 432) BASOPHILS RELATIVE PERCENT 2 % (BEAKER) (test code = 437) NEUTROPHILS ABSOLUTE COUNT 2.41 K/ L 1.78-5.38 (BEAKER) (test code = 670) LYMPHOCYTES ABSOLUTE COUNT 1.80 K/ L 1.32-3.57 (BEAKER) (test code = 414) MONOCYTES ABSOLUTE COUNT (BEAKER) 0.52 K/ L 0.30-0.82 (test code = 415) EOSINOPHILS ABSOLUTE COUNT 0.17 K/ L 0.04-0.54 (BEAKER) (test code = 416) BASOPHILS ABSOLUTE COUNT (BEAKER) 0.08 K/ L 0.01-0.08 (test code = 417) IMMATURE GRANULOCYTES-RELATIVE 1 % 0-1 PERCENT (BEAKER) (test code = 2801) HEMOGLOBIN [id number] 22:29:00 Test Item Value Reference Range Interpretation Comments HEMOGLOBIN A1C (BEAKER) (test code = 5.9 % 4.3-6.1 368) VITAMIN B12 AND [id number] 18:47:00 Test Item Value Reference Range Interpretation Comments VITAMIN B12 (BEAKER) (test code = 1185 pg/mL 213-816 H 774) FOLATE (BEAKER) (test code = 362) 2.3 ng/mL >=7.0 L TROPONIN [id number] 18:18:00 Test Item Value Reference Range Interpretation Comments TROPONIN I (BEAKER) (test code = 397) < ng/mL 0.00-0.03 Troponin I (TnI) levels [...] acute neurological disease, and persistent tachyarrhythmia.BASIC METABOLIC [id number] 18:10:00 Test Item Value Reference Range Interpretation Comments SODIUM (BEAKER) 136 meq/L 136-145 (test code = 381) POTASSIUM (BEAKER) 3.8 meq/L 3.5-5.1 (test code = 379) CHLORIDE (BEAKER) 102 meq/L 98-107 (test code = 382) CO2 (BEAKER) (test 23 meq/L 22-29 code = 355) BLOOD UREA NITROGEN 10 mg/dL 7-21 (BEAKER) (test code = 354) CREATININE (BEAKER) 0.88 mg/dL 0.57-1.25 (test code = 358) GLUCOSE RANDOM 102 mg/dL 70-105 (BEAKER) (test code = 652) CALCIUM (BEAKER) 9.3 mg/dL 8.4-10.2 (test code = 697) EGFR (BEAKER) (test 86 mL/min/1.73 ESTIMA YUSUF GFR IS code = 1092) sq m NOT ACCURATE CREATININE CLEARANCE IN PREDICTING GLOMERULAR FILTRATION RATE . ESTIMATED GFR I S NOT APPLICABLE FOR DIALYSIS PATIEN TS. CBC W/PLT COUNT & AUTO [id number] 17:52:00 Test Item Value Reference Range Interpretation Comments WHITE BLOOD CELL COUNT (BEAKER) 8.8 K/ L 3.5-10.5 (test code = 775) RED BLOOD CELL COUNT (BEAKER) 4.53 M/ L 4.63-6.08 L (test code = 761) HEMOGLOBIN (BEAKER) (test code = 12.6 GM/DL 13.7-17.5 L 410) HEMATOCRIT (BEAKER) (test code = 39.4 % 40.1-51.0 L 411) MEAN CORPUSCULAR VOLUME (BEAKER) 87.0 fL 79.0-92.2 (test code = 753) MEAN CORPUSCULAR HEMOGLOBIN 27.8 pg 25.7-32.2 (BEAKER) (test code = 751) MEAN CORPUSCULAR HEMOGLOBIN CONC 32.0 GM/DL 32.3-36.5 L (BEAKER) (test code = 752) RED CELL DISTRIBUTION WIDTH 17.0 % 11.6-14.4 H (BEAKER) (test code = 412) PLATELET COUNT (BEAKER) (test 186 K/CU MM 150-450 code = 756) MEAN PLATELET VOLUME (BEAKER) 10.5 fL 9.4-12.4 (test code = 754) NUCLEATED RED BLOOD CELLS 0 /100 WBC 0-0 (BEAKER) (test code = 413) NEUTROPHILS RELATIVE PERCENT 69 % (BEAKER) (test code = 429) LYMPHOCYTES RELATIVE PERCENT 20 % (BEAKER) (test code = 430) MONOCYTES RELATIVE PERCENT 9 % (BEAKER) (test code = 431) EOSINOPHILS RELATIVE PERCENT 1 % (BEAKER) (test code = 432) BASOPHILS RELATIVE PERCENT 1 % (BEAKER) (test code = 437) NEUTROPHILS ABSOLUTE COUNT 6.12 K/ L 1.78-5.38 H (BEAKER) (test code = 670) LYMPHOCYTES ABSOLUTE COUNT 1.72 K/ L 1.32-3.57 (BEAKER) (test code = 414) MONOCYTES ABSOLUTE COUNT (BEAKER) 0.75 K/ L 0.30-0.82 (test code = 415) EOSINOPHILS ABSOLUTE COUNT 0.08 K/ L 0.04-0.54 (BEAKER) (test code = 416) BASOPHILS ABSOLUTE COUNT (BEAKER) 0.09 K/ L 0.01-0.08 H (test code = 417) IMMATURE GRANULOCYTES-RELATIVE 1 % 0-1 PERCENT (BEAKER) (test code = 2801) BASIC METABOLIC [id number] 07:51:00 Test Item Value Reference Range Interpretation Comments SODIUM (BEAKER) 136 meq/L 136-145 (test code = 381) POTASSIUM (BEAKER) 4.0 meq/L 3.5-5.1 (test code = 379) CHLORIDE (BEAKER) 106 meq/L 98-107 (test code = 382) CO2 (BEAKER) (test 23 meq/L 22-29 code = 355) BLOOD UREA NITROGEN 15 mg/dL 7-21 (BEAKER) (test code = 354) CREATININE (BEAKER) 0.92 mg/dL 0.57-1.25 (test code = 358) GLUCOSE RANDOM 92 mg/dL 70-105 (BEAKER) (test code = 652) CALCIUM (BEAKER) 8.7 mg/dL 8.4-10.2 (test code = 697) EGFR (BEAKER) (test 82 mL/min/1.73 ESTIMA YUSUF GFR IS code = 1092) sq m NOT ACCURATE CREATININE CLEARANCE IN PREDICTING GLOMERULAR FILTRATION RATE . ESTIMATED GFR I S NOT APPLICABLE FOR DIALYSIS PATIEN TS. CBC W/PLT COUNT & AUTO [id number] 05:55:00 Test Item Value Reference Range Interpretation Comments WHITE BLOOD CELL COUNT (BEAKER) 5.9 K/ L 3.5-10.5 (test code = 775) RED BLOOD CELL COUNT (BEAKER) 4.25 M/ L 4.63-6.08 L (test code = 761) HEMOGLOBIN (BEAKER) (test code = 12.3 GM/DL 13.7-17.5 L 410) HEMATOCRIT (BEAKER) (test code = 37.8 % 40.1-51.0 L 411) MEAN CORPUSCULAR VOLUME (BEAKER) 88.9 fL 79.0-92.2 (test code = 753) MEAN CORPUSCULAR HEMOGLOBIN 28.9 pg 25.7-32.2 (BEAKER) (test code = 751) MEAN CORPUSCULAR HEMOGLOBIN CONC 32.5 GM/DL 32.3-36.5 (BEAKER) (test code = 752) RED CELL DISTRIBUTION WIDTH 15.9 % 11.6-14.4 H (BEAKER) (test code = 412) PLATELET COUNT (BEAKER) (test 173 K/CU MM 150-450 code = 756) MEAN PLATELET VOLUME (BEAKER) 11.5 fL 9.4-12.4 (test code = 754) NUCLEATED RED BLOOD CELLS 0 /100 WBC 0-0 (BEAKER) (test code = 413) NEUTROPHILS RELATIVE PERCENT 48 % (BEAKER) (test code = 429) LYMPHOCYTES RELATIVE PERCENT 34 % (BEAKER) (test code = 430) MONOCYTES RELATIVE PERCENT 12 % (BEAKER) (test code = 431) EOSINOPHILS RELATIVE PERCENT 4 % (BEAKER) (test code = 432) BASOPHILS RELATIVE PERCENT 2 % (BEAKER) (test code = 437) NEUTROPHILS ABSOLUTE COUNT 2.85 K/ L 1.78-5.38 (BEAKER) (test code = 670) LYMPHOCYTES ABSOLUTE COUNT 2.02 K/ L 1.32-3.57 (BEAKER) (test code = 414) MONOCYTES ABSOLUTE COUNT (BEAKER) 0.68 K/ L 0.30-0.82 (test code = 415) EOSINOPHILS ABSOLUTE COUNT 0.25 K/ L 0.04-0.54 (BEAKER) (test code = 416) BASOPHILS ABSOLUTE COUNT (BEAKER) 0.09 K/ L 0.01-0.08 H (test code = 417) IMMATURE GRANULOCYTES-RELATIVE 1 % 0-1 PERCENT (BEAKER) (test code = 2801) CBC W/PLT COUNT & AUTO [id number] 05:15:00 Test Item Value Reference Range Interpretation Comments WHITE BLOOD CELL COUNT (BEAKER) 5.4 K/ L 3.5-10.5 (test code = 775) RED BLOOD CELL COUNT (BEAKER) 4.34 M/ L 4.63-6.08 L (test code = 761) HEMOGLOBIN (BEAKER) (test code = 12.5 GM/DL 13.7-17.5 L 410) HEMATOCRIT (BEAKER) (test code = 39.0 % 40.1-51.0 L 411) MEAN CORPUSCULAR VOLUME (BEAKER) 89.9 fL 79.0-92.2 (test code = 753) MEAN CORPUSCULAR HEMOGLOBIN 28.8 pg 25.7-32.2 (BEAKER) (test code = 751) MEAN CORPUSCULAR HEMOGLOBIN CONC 32.1 GM/DL 32.3-36.5 L (BEAKER) (test code = 752) RED CELL DISTRIBUTION WIDTH 15.9 % 11.6-14.4 H (BEAKER) (test code = 412) PLATELET COUNT (BEAKER) (test 162 K/CU MM 150-450 code = 756) MEAN PLATELET VOLUME (BEAKER) 10.6 fL 9.4-12.4 (test code = 754) NUCLEATED RED BLOOD CELLS 0 /100 WBC 0-0 (BEAKER) (test code = 413) NEUTROPHILS RELATIVE PERCENT 52 % (BEAKER) (test code = 429) LYMPHOCYTES RELATIVE PERCENT 31 % (BEAKER) (test code = 430) MONOCYTES RELATIVE PERCENT 11 % (BEAKER) (test code = 431) EOSINOPHILS RELATIVE PERCENT 4 % (BEAKER) (test code = 432) BASOPHILS RELATIVE PERCENT 2 % (BEAKER) (test code = 437) NEUTROPHILS ABSOLUTE COUNT 2.78 K/ L 1.78-5.38 (BEAKER) (test code = 670) LYMPHOCYTES ABSOLUTE COUNT 1.69 K/ L 1.32-3.57 (BEAKER) (test code = 414) MONOCYTES ABSOLUTE COUNT (BEAKER) 0.59 K/ L 0.30-0.82 (test code = 415) EOSINOPHILS ABSOLUTE COUNT 0.21 K/ L 0.04-0.54 (BEAKER) (test code = 416) BASOPHILS ABSOLUTE COUNT (BEAKER) 0.09 K/ L 0.01-0.08 H (test code = 417) IMMATURE GRANULOCYTES-RELATIVE 1 % 0-1 PERCENT (BEAKER) (test code = 2801) CT, BRAIN, WITHOUT [id number] 15:31:00FINAL REPORT CT head without contrast 03/12/2017 [...] left caudate nucleus infarct. Signed: Wilbert Quintanilla Verified Date/Time: 03/12/2017 15:31:17 Reading Location: [facility] [id number] Neuro Reading Room ONIN [id number] 15:26:00 Test Item Value Reference Range Interpretation Comments TROPONIN I (BEAKER) (test code = 0.02 ng/mL 0.00-0.03 397) Troponin I (TnI) levels must be interpreted [...] acidosis, acute neurological disease, and persistent tachyarrhythmia.HEMOGLOBIN [id number] 12:38:00 Test Item Value Reference Range Interpretation Comments HEMOGLOBIN A1C (BEAKER) (test code = 5.6 % 4.3-6.1 368) FastingRAD, CHEST, 1 VIEW, NON [id number] 10:06:00Reason for exam:->rule out pneumoniaShould this be [...] Benites Verified Date/Time: 03/12/2017 10:06:57 Reading Location: [facility] Radiology Reading Room [id number] 09:08:00 Test Item Value Reference Range Interpretation Comments HOMOCYSTEINE (BEAKER) (test code 11.8 umol/L 5.1-15.4 = 642) FastingCREATINE KINASE (CK), TOTAL AND [id number] 08:55:00 Test Item Value Reference Range Interpretation Comments CREATINE KINASE TOTAL (BEAKER) 59 U/L 29-200 (test code = 380) CREATINE KINASE-MB (BEAKER) (test 1.0 ng/mL 0.0-6.6 code = 750) CREATINE KINASE-MB INDEX (BEAKER) 1.7 % (test code = 395) CK-MB Reference Range:<6.7 Normal6.7-10.0 Borderline>10.0 AbnormalFastingFastingTROPONIN [id number] 08:55:00 Test Item Value Reference Range Interpretation Comments TROPONIN I (BEAKER) (test code = 397) < ng/mL 0.00-0.03 Troponin I (TnI) levels [...] acidosis, acute neurological disease, and persistent tachyarrhythmia.FastingLIPID [id number] 08:48:00 Test Item Value Reference Range Interpretation Comments TRIGLYCERIDES (BEAKER) (test code = 151 mg/dL 540) CHOLESTEROL (BEAKER) (test code = 147 mg/dL 631) HDL CHOLESTEROL (BEAKER) (test code 29 mg/dL = 976) LDL CHOLESTEROL CALCULATED (BEAKER) 88 mg/dL (test code = 633) Triglyceride Reference Range: Low Risk <150 Borderline 150-199 High Risk 200-499 Very High Risk >=500Cholesterol Reference Range: Low Risk <200 Borderline 200-239 High Risk >240HDL Cholesterol Reference Range: Low Risk >=60 High Risk <40LDL Cholesterol Reference Range: Optimal <100 Near Optimal 100-129 Borderline 130-159 High 160-189 Very High >=190 FastingBASIC METABOLIC [id number] 08:48:00 Test Item Value Reference Range Interpretation Comments SODIUM (BEAKER) 136 meq/L 136-145 (test code = 381) POTASSIUM (BEAKER) 4.4 meq/L 3.5-5.1 (test code = 379) CHLORIDE (BEAKER) 104 meq/L 98-107 (test code = 382) CO2 (BEAKER) (test 25 meq/L 22-29 code = 355) BLOOD UREA NITROGEN 15 mg/dL 7-21 (BEAKER) (test code = 354) CREATININE (BEAKER) 0.87 mg/dL 0.57-1.25 (test code = 358) GLUCOSE RANDOM 102 mg/dL 70-105 (BEAKER) (test code = 652) CALCIUM (BEAKER) 8.9 mg/dL 8.4-10.2 (test code = 697) EGFR (BEAKER) (test 87 mL/min/1.73 ESTIMA YUSUF GFR IS code = 1092) sq m NOT ACCURATE CREATININE CLEARANCE IN PREDICTING GLOMERULAR FILTRATION RATE . ESTIMATED GFR I S NOT APPLICABLE FOR DIALYSIS PATIEN TS. FastingCBC W/PLT COUNT & AUTO [id number] 08:24:00 Test Item Value Reference Range Interpretation Comments WHITE BLOOD CELL COUNT (BEAKER) 5.7 K/ L 3.5-10.5 (test code = 775) RED BLOOD CELL COUNT (BEAKER) 4.23 M/ L 4.63-6.08 L (test code = 761) HEMOGLOBIN (BEAKER) (test code = 12.3 GM/DL 13.7-17.5 L 410) HEMATOCRIT (BEAKER) (test code = 37.9 % 40.1-51.0 L 411) MEAN CORPUSCULAR VOLUME (BEAKER) 89.6 fL 79.0-92.2 (test code = 753) MEAN CORPUSCULAR HEMOGLOBIN 29.1 pg 25.7-32.2 (BEAKER) (test code = 751) MEAN CORPUSCULAR HEMOGLOBIN CONC 32.5 GM/DL 32.3-36.5 (BEAKER) (test code = 752) RED CELL DISTRIBUTION WIDTH 15.9 % 11.6-14.4 H (BEAKER) (test code = 412) PLATELET COUNT (BEAKER) (test 156 K/CU MM 150-450 code = 756) MEAN PLATELET VOLUME (BEAKER) 10.2 fL 9.4-12.4 (test code = 754) NUCLEATED RED BLOOD CELLS 0 /100 WBC 0-0 (BEAKER) (test code = 413) NEUTROPHILS RELATIVE PERCENT 47 % (BEAKER) (test code = 429) LYMPHOCYTES RELATIVE PERCENT 37 % (BEAKER) (test code = 430) MONOCYTES RELATIVE PERCENT 12 % (BEAKER) (test code = 431) EOSINOPHILS RELATIVE PERCENT 3 % (BEAKER) (test code = 432) BASOPHILS RELATIVE PERCENT 2 % (BEAKER) (test code = 437) NEUTROPHILS ABSOLUTE COUNT 2.66 K/ L 1.78-5.38 (BEAKER) (test code = 670) LYMPHOCYTES ABSOLUTE COUNT 2.09 K/ L 1.32-3.57 (BEAKER) (test code = 414) MONOCYTES ABSOLUTE COUNT (BEAKER) 0.70 K/ L 0.30-0.82 (test code = 415) EOSINOPHILS ABSOLUTE COUNT 0.15 K/ L 0.04-0.54 (BEAKER) (test code = 416) BASOPHILS ABSOLUTE COUNT (BEAKER) 0.09 K/ L 0.01-0.08 H (test code = 417) IMMATURE GRANULOCYTES-RELATIVE 1 % 0-1 PERCENT (BEAKER) (test code = 2801) TSH/FREE T4 IF [id number] 03:38:00 Test Item Value Reference Range Interpretation Comments THYROID STIMULATING HORMONE 2.01 uIU/mL 0.35-4.94 (BEAKER) (test code = 772) VITAMIN B12 AND [id number] 03:38:00 Test Item Value Reference Range Interpretation Comments VITAMIN B12 (BEAKER) (test code = 1008 pg/mL 213-816 H 774) FOLATE (BEAKER) (test code = 362) 8.4 ng/mL >=7.0 CREATINE KINASE (CK), TOTAL AND [id number] 01:03:00 Test Item Value Reference Range Interpretation Comments CREATINE KINASE TOTAL (BEAKER) 66 U/L 29-200 (test code = 380) CREATINE KINASE-MB (BEAKER) (test 1.4 ng/mL 0.0-6.6 code = 750) CREATINE KINASE-MB INDEX (BEAKER) 2.1 % (test code = 395) CK-MB Reference Range:<6.7 Normal6.7-10.0 Borderline>10.0 AbnormalTROPONIN [id number] 01:03:00 Test Item Value Reference Range Interpretation Comments TROPONIN I (BEAKER) (test code = 0.02 ng/mL 0.00-0.03 397) Troponin I (TnI) levels must be interpreted [...] acute neurological disease, and persistent tachyarrhythmia.BASIC METABOLIC [id number] 00:56:00 Test Item Value Reference Range Interpretation Comments SODIUM (BEAKER) 136 meq/L 136-145 (test code = 381) POTASSIUM (BEAKER) 3.9 meq/L 3.5-5.1 (test code = 379) CHLORIDE (BEAKER) 104 meq/L 98-107 (test code = 382) CO2 (BEAKER) (test 24 meq/L 22-29 code = 355) BLOOD UREA NITROGEN 14 mg/dL 7-21 (BEAKER) (test code = 354) CREATININE (BEAKER) 0.87 mg/dL 0.57-1.25 (test code = 358) GLUCOSE RANDOM 104 mg/dL 70-105 (BEAKER) (test code = 652) CALCIUM (BEAKER) 9.2 mg/dL 8.4-10.2 (test code = 697) EGFR (BEAKER) (test 87 mL/min/1.73 ESTIMA YUSUF GFR IS code = 1092) sq m NOT ACCURATE CREATININE CLEARANCE IN PREDICTING GLOMERULAR FILTRATION RATE . ESTIMATED GFR I S NOT APPLICABLE FOR DIALYSIS PATIEN TS. PROTHROMBIN [id number] 00:27:00 Test Item Value Reference Range Interpretation Comments PROTIME (BEAKER) (test code = 17.2 seconds 11.7-14.7 H 759) INR (BEAKER) (test code = 370) 1.4 <=5.9 RECOMMENDED COUMADIN/WARFARIN INR THERAPY RANGESSTANDARD DOSE: 2.0 - 3.0 Includes: PROPHYLAXIS forvenous thrombosis, systemic embolization; TREATMENT for venous thrombosis and/or pulmonary embolus.HIGH RISK: Target INR is 2.5-3.5 for patients with mechanical heart valves.CBC W/PLT COUNT & AUTO DIFFERENTIAL 2017-03-12 00:01:00 Test Item Value Reference Range Interpretation Comments WHITE BLOOD CELL COUNT (BEAKER) 8.2 K/ L 3.5-10.5 (test code = 775) RED BLOOD CELL COUNT (BEAKER) 4.57 M/ L 4.63-6.08 L (test code = 761) HEMOGLOBIN (BEAKER) (test code = 13.2 GM/DL 13.7-17.5 L 410) HEMATOCRIT (BEAKER) (test code = 40.5 % 40.1-51.0 411) MEAN CORPUSCULAR VOLUME (BEAKER) 88.6 fL 79.0-92.2 (test code = 753) MEAN CORPUSCULAR HEMOGLOBIN 28.9 pg 25.7-32.2 (BEAKER) (test code = 751) MEAN CORPUSCULAR HEMOGLOBIN CONC 32.6 GM/DL 32.3-36.5 (BEAKER) (test code = 752) RED CELL DISTRIBUTION WIDTH 15.9 % 11.6-14.4 H (BEAKER) (test code = 412) PLATELET COUNT (BEAKER) (test 198 K/CU MM 150-450 code = 756) MEAN PLATELET VOLUME (BEAKER) 11.2 fL 9.4-12.4 (test code = 754) NUCLEATED RED BLOOD CELLS 0 /100 WBC 0-0 (BEAKER) (test code = 413) NEUTROPHILS RELATIVE PERCENT 57 % (BEAKER) (test code = 429) LYMPHOCYTES RELATIVE PERCENT 28 % (BEAKER) (test code = 430) MONOCYTES RELATIVE PERCENT 10 % (BEAKER) (test code = 431) EOSINOPHILS RELATIVE PERCENT 3 % (BEAKER) (test code = 432) BASOPHILS RELATIVE PERCENT 1 % (BEAKER) (test code = 437) NEUTROPHILS ABSOLUTE COUNT 4.66 K/ L 1.78-5.38 (BEAKER) (test code = 670) LYMPHOCYTES ABSOLUTE COUNT 2.29 K/ L 1.32-3.57 (BEAKER) (test code = 414) MONOCYTES ABSOLUTE COUNT (BEAKER) 0.81 K/ L 0.30-0.82 (test code = 415) EOSINOPHILS ABSOLUTE COUNT 0.25 K/ L 0.04-0.54 (BEAKER) (test code = 416) BASOPHILS ABSOLUTE COUNT (BEAKER) 0.10 K/ L 0.01-0.08 H (test code = 417) IMMATURE GRANULOCYTES-RELATIVE 1 % 0-1 PERCENT (BEAKER) (test code = 8061)
--- NOTE | 2019-07-20 13:21 | RAD REPORT ---
EXAM DESCRIPTION: [place] Single View07/20/2019 1:02 pm CLINICAL HISTORY: Chest pain COMPARISON: 2018 FINDINGS: The lungs are hyperaerated. The lungs appear clear of acute infiltrate. The heart is normal size. Pacemaker leads are in place. IMPRESSION: COPD without visualization acute abnormality
[2019-07-20 13:28] LABS: ALT/SGPT 17 U/L (12-78); AST/SGOT 18 U/L (15-37); Albumin 3.6 g/dL (3.4-5.0); Alkaline Phosphatase 98 U/L (45-117); BUN Blood Urea Nitrogen 21 mg/dL (7-18); Bicarbonate 25 mmol/L (21-32); Bilirubin Direct < 0.1 mg/dL (0-0.2); Bilirubin Total 0.3 mg/dL (0.2-1.0); Glucose Level 101 mg/dL (74-106); Magnesium 2.1 mg/dL (1.8-2.4); NT PRO-BNP 63 pg/mL (<125); Potassium 3.7 mmol/L (3.5-5.1); Protein, Total 7.9 g/dL (6.4-8.2); Sodium Level 135 mmol/L (136-145); Troponin (Emerg Dept Use Only) < 0.02 ng/mL (0.0-0.045)
[2019-07-20 13:56] LABS: Protime INR 1.08
--- NOTE | 2019-07-20 14:28 | EDPHYS ---
Physician Documentation [facility] Name: Maurice Morfin Age: 69 yrs Sex: Male : 1950 Arrival Date: 07/20/2019 Time: 12:00 Bed 24 Private MD: Yung Thomas ED Physician Caio Cruz HPI: 07/19 14:19 This 69 yrs old Male presents to ER via EMS with complaints of Chest Pain. [facility] 14:19 The patient or guardian reports chest pain that is located primarily in the anterior john paul chest wall, left. Onset: just prior to arrival, this morning. The pain radiates to the left arm. Associated signs and symptoms: The patient has no apparent associated signs or symptoms. The chest pain is described as a heaviness, a pressure. Duration: The patient or guardian reports a single episode, that is now resolved. Modifying factors: The symptoms are alleviated by NTG, X2. the symptoms are aggravated by nothing. Severity of pain: At its worst the pain was moderate in the emergency department the pain has improved markedly. The patient has experienced similar episodes in the past, multiple times. Historical: - Allergies: 12:04 Codeine; ll1 - PMHx: 12:04 Cholelithiasis; COPD; CVA; Dementia; enlarged prostate; Hernia; Hypertension; GA; PVD; ll1 TIA; - PSHx: 12:04 Heart stents; Leg stents; Cholecystectomy; Pacemaker; leg bypass; ll1 - Immunization history:: Adult Immunizations up to date. - Social history:: Patient/guardian denies using alcohol, street drugs, tobacco products, Smoking status: Patient reports the use of cigarette tobacco products, smokes one-half pack cigarettes per day. - Family history:: not pertinent. ROS: 14:19 Constitutional: Negative for fever, chills, and weight loss, Eyes: Negative for injury, john paul pain, redness, and discharge, ENT: Negative for injury, pain, and discharge, Neck: Negative for injury, pain, and swelling, Respiratory: Negative for shortness of breath, cough, wheezing, and pleuritic chest pain, Abdomen/GI: Negative for abdominal pain, nausea, vomiting, diarrhea, and constipation, Back: Negative for injury and pain, : Negative for injury, bleeding, discharge, and swelling, MS/Extremity: Negative for injury and deformity, Skin: Negative for injury, rash, and discoloration, Neuro: Negative for headache, weakness, numbness, tingling, and seizure, Psych: Negative for depression, anxiety, suicide ideation, homicidal ideation, and hallucinations, Allergy/Immunology: Negative for hives, rash, and allergies, Endocrine: Negative for neck swelling, polydipsia, polyuria, polyphagia, and marked weight changes, Hematologic/Lymphatic: Negative for swollen nodes, abnormal bleeding, and unusual bruising. 14:19 Cardiovascular: Positive for chest pain, of the . Exam: 14:19 Constitutional: This is a well developed, well nourished patient who is awake, alert, john paul and in no acute distress. Head/Face: Normocephalic, atraumatic. Eyes: Pupils equal round and reactive to light, extra-ocular motions intact. Lids and lashes normal. Conjunctiva and sclera are non-icteric and not injected. Cornea within normal limits. Periorbital areas with no swelling, redness, or edema. ENT: Nares patent. No nasal discharge, no septal abnormalities noted. Tympanic membranes are normal and external auditory canals are clear. Oropharynx with no redness, swelling, or masses, exudates, or evidence of obstruction, uvula midline. Mucous membranes moist. Neck: Trachea midline, no thyromegaly or masses palpated, and no cervical lymphadenopathy. Supple, full range of motion without nuchal rigidity, or vertebral point tenderness. No Meningismus. Chest/axilla: Normal chest wall appearance and motion. Nontender with no deformity. No lesions are appreciated. Cardiovascular: Regular rate and rhythm with a normal S1 and S2. No gallops, murmurs, or rubs. Normal PMI, no JVD. No pulse deficits. Respiratory: Lungs have equal breath sounds bilaterally, clear to auscultation and percussion. No rales, rhonchi or wheezes noted. No increased work of breathing, no retractions or nasal flaring. Abdomen/GI: Soft, non-tender, with normal bowel sounds. No distension or tympany. No guarding or rebound. No evidence of tenderness throughout. Back: No spinal tenderness. No costovertebral tenderness. Full range of motion. Male : Normal genitalia with no discharge or lesions. Skin: Warm, dry with normal turgor. Normal color with no rashes, no lesions, and no evidence of cellulitis. MS/ Extremity: Pulses equal, no cyanosis. Neurovascular intact. Full, normal range of motion. Neuro: Awake and alert, GCS 15, oriented to person, place, time, and situation. Cranial nerves II-XII grossly intact. Motor strength 5/5 in all extremities. Sensory grossly intact. Cerebellar exam normal. Normal gait. Psych: Awake, alert, with orientation to person, place and time. Behavior, mood, and affect are within normal limits. 14:32 ECG was reviewed by the Attending Physician. [facility] Vital Signs: 12:04 BP 108 / 77; Pulse 75; Resp 18; Temp 97.8; Pulse Ox 100% ; Pain 9/10; ll1 13:00 BP 105 / 74; Pulse 66; Resp 17; Pulse Ox 99% ; ll1 13:30 BP 132 / 76; Pulse 62; Resp 16; Pulse Ox 100% ; ll1 14:31 Weight 66.22 kg; ll1 14:59 BP 146 / 74; Pulse 64; Resp 18; Pulse Ox 99% ; ll1 16:47 BP 124 / 71 LA (auto/reg); Pulse 65; Resp 18; Temp 97.9(O); Pulse Ox 100% on R/A; Pain jp3 0/10; MDM: 12:27 Patient medically screened. [facility] 14:21 Data reviewed: vital signs, nurses notes, EMS record, lab test result(s), EKG, john paul radiologic studies, plain films. 14:22 Differential diagnosis: abnormal EKG, acute myocardial infarction, coronary artery john paul disease chest wall pain, esophagitis, hiatal hernia, pleurisy, pneumonia, pulmonary embolus, stable angina, unstable angina. HEART Score: History: Moderately Suspicious (1), ECG: Normal (0), Age: > or = 65 years (2), Risk Factors: > or = 3 Risk factors for atherosclerotic disease (2), [Hypercholesterolemia] [Hypertension] [+ Family HX] Troponin: < or = 1 x Normal Limit (0). The patient was given aspirin in the Emergency Department. ASHLEY Risk Score: 1 - patient's age is greater or equal to 65 years, 1 - Three or more CAD risk factors, 1- Known CAD, 1 - ASA use in past 7 days, TOTAL SCORE = 4. Data interpreted: case monitor: rate is 77 beats/min, Pulse oximetry: on room air is 100 %. Test interpretation: by ED physician or midlevel provider: ECG, plain radiologic studies. Counseling: I had a detailed discussion with the patient and/or guardian regarding: the historical points, exam findings, and any diagnostic results supporting the discharge/admit diagnosis, lab results, radiology results, the need for further work-up and treatment in the hospital. ED course: known cad, cp lef, obs per dr lozada, telet side to left arm, nitro improved pain. ED course: no chest pain at this time. 07/19 12:33 Order name: Basic Metabolic Panel; Complete Time: 14:28 [facility] 07/19 12:33 Order name: CBC with Diff; Complete Time: 16:06 [facility] 07/19 12:33 Order name: LFT's; Complete Time: 14:28 [facility] 07/19 12:33 Order name: Magnesium; Complete Time: 14:28 [facility] 07/19 12:33 Order name: NT PRO-BNP; Complete Time: 14:28 [facility] 07/19 12:33 Order name: PT-INR; Complete Time: 14:28 [facility] 07/19 12:33 Order name: Troponin (emerg Dept Use Only); Complete Time: 14:28 [facility] 07/19 12:33 Order name: XRAY Chest (1 view); Complete Time: 14:28 [facility] 07/19 12:33 Order name: EKG; Complete Time: 12:34 [facility] 07/19 15:14 Order name: CBC Smear Scan; Complete Time: 16:06 [facility] 07/19 12:33 Order name: Cardiac monitoring; Complete Time: 12:35 [facility] 07/19 12:33 Order name: EKG - Nurse/Tech; Complete Time: 12:35 [facility] 07/19 12:33 Order name: IV Saline Lock; Complete Time: 12:35 [facility] 07/19 12:33 Order name: Labs collected and sent; Complete Time: 12:35 [facility] 07/19 12:33 Order name: O2 Per Protocol; Complete Time: 12:35 [facility] 07/19 12:33 Order name: O2 Sat Monitoring; Complete Time: 12:35 [facility] EC:32 Rate is 77 beats/min. Rhythm is regular. QRS Celina is Normal. DC interval is normal. QRS john paul interval is normal. QT interval is normal. No Q waves. T waves are Normal. No ST changes noted. Clinical impression: Normal ECG and No evidence of ischemia. Interpreted by me. Reviewed by me. Administered Medications: 14:28 Not Given (received by EMS on the way here): Aspirin 81 mg PO once ll1 14:42 Drug: PlaVIX 75 mg Route: PO; ll1 15:03 Follow up: Response: No adverse reaction; RASS: Alert and Calm (0) ll1 14:43 Drug: Lovenox 1 mg/kg {Note: 66 mg.} Route: Sub-Q; Site: right lower abdomen; ll1 15:03 Follow up: Response: No adverse reaction; RASS: Alert and Calm (0) ll1 16:13 Drug: Zofran (Ondansetron) 4 mg Route: IVP; Site: right hand; hb Disposition: 07/20/19 14:27 Hospitalization ordered by Татьяна Lozada for Observation. Preliminary diagnosis are Angina pectoris, Other chest pain, Vomiting. - Bed requested for Telemetry/MedSurg (observation). - Status is Observation. hb - Condition is Fair. - Problem is new. - Symptoms have improved. Signatures: Dispatcher [employer] EDMS Brina Diamond Corey, MD MD cha Baxter, Heather, RN RN Chandni English RN RN ll1 Corrections: (The following items were deleted from the chart) 16:07 14:27 Hospitalization Ordered by Татьяна Lozada MD for Observation. Preliminary diagnosis john paul is Angina pectoris; Other chest pain. Bed requested for Telemetry/MedSurg (observation). Status is Observation. Condition is Fair. Problem is new. Symptoms have improved. john paul 16:41 16:07 07/20/2019 14:27 Hospitalization Ordered by Татьяна Lozada MD for Observation. bd Preliminary diagnosis is Angina pectoris; Other chest pain; Vomiting. Bed requested for Telemetry/MedSurg (observation). Status is Observation. Condition is Fair. Problem is new. Symptoms have improved. john paul 17:18 16:41 07/20/2019 14:27 Hospitalization Ordered by Татьяна Lozada MD for Observation. hb Preliminary diagnosis is Angina pectoris; Other chest pain; Vomiting. Bed requested for Telemetry/MedSurg (observation). Status is Observation. Condition is Fair. Problem is new. Symptoms have improved. bd
--- NOTE | 2019-07-20 14:28 | ER ---
Nurse's Notes [facility] Name: Maurice Morfin Age: 69 yrs Sex: Male : 1950 Arrival Date: 07/20/2019 Time: 12:00 Bed 24 Private MD: Yung Thomas Diagnosis: Angina pectoris;Other chest pain;Vomiting Presentation: 07/19 12:04 Chief complaint: Patient states: Left sided CP for 1 hour radiates down left arm. No ll1 fever or cough. EMS states: VSS. Gave 1 nitro and aspirin 325mg PO en route. 20 G R Hand. Coronavirus screen: Proceed with normal triage. Patient denies a cough. Patient denies shortness of breath or difficulty breathing. Patient denies measured and/or subjective temperature greater than 100.4F prior to today's visit. Patient denies travel on a cruise ship or to a country the [facility] currently lists as an affected area. Patient denies contact with known and/or suspected case of COVID-19. Ebola Screen: Patient denies travel to an Ebola-affected area in the 21 days before illness onset. No symptoms or risks identified at this time. Initial Sepsis Screen: Does the patient meet any 2 criteria? No. Patient's initial sepsis screen is negative. Does the patient have a suspected source of infection? No. Patient's initial sepsis screen is negative. Risk Assessment: Do you want to hurt yourself or someone else? Patient reports no desire to harm self or others. Onset of symptoms was July 20, 2019. 12:04 Method Of Arrival: EMS ll1 12:04 Acuity: WAYLON 3 ll1 Historical: - Allergies: 12:04 Codeine; ll1 - PMHx: 12:04 Cholelithiasis; COPD; CVA; Dementia; enlarged prostate; Hernia; Hypertension; UT; PVD; ll1 TIA; - PSHx: 12:04 Heart stents; Leg stents; Cholecystectomy; Pacemaker; leg bypass; ll1 - Immunization history:: Adult Immunizations up to date. - Social history:: Patient/guardian denies using alcohol, street drugs, tobacco products, Smoking status: Patient reports the use of cigarette tobacco products, smokes one-half pack cigarettes per day. - Family history:: not pertinent. Screenin:02 Abuse screen: Denies threats or abuse. Nutritional screening: No deficits noted. ll1 Tuberculosis screening: No symptoms or risk factors identified. Fall Risk None identified. IV access (20 points). Gait- Weak (10 pts.). Total Gudino Fall Scale indicates Low Risk Score (25-44 pts). Fall prevention measures have been instituted. Side Rails Up X 2 Frequent Obs/Assesments occuring As available Patient and Family Educated on Fall Prevention Program and strategies. Assessment: 12:01 General: Appears uncomfortable, Behavior is calm, cooperative. Pain: Complains of pain ll1 in left chest Pain currently is 9 out of 10 on a pain scale. Quality of pain is described as sharp, Pain began 1 hour ago. Neuro: No deficits noted. Cardiovascular: Reports chest pain, Heart tones S1 S2 Capillary refill < 3 seconds Clubbing of nail beds is absent JVD is absent Patient's skin is warm and dry. Pulses are all present. Respiratory: Airway is patent Trachea midline Respiratory effort is even, unlabored, Respiratory pattern is regular, symmetrical, Denies labored breathing. 13:00 Reassessment: No changes from previously documented assessment. Patient and/or family ll1 updated on plan of care and expected duration. Pain level reassessed. Patient is alert, oriented x 3, equal unlabored respirations, skin warm/dry/pink. 14:00 Reassessment: No changes from previously documented assessment. Patient and/or family ll1 updated on plan of care and expected duration. Pain level reassessed. Patient is alert, oriented x 3, equal unlabored respirations, skin warm/dry/pink. 15:00 Reassessment: No changes from previously documented assessment. Patient and/or family ll1 updated on plan of care and expected duration. Pain level reassessed. Patient is alert, oriented x 3, equal unlabored respirations, skin warm/dry/pink. 15:45 Reassessment: Patient appears in no apparent distress at this time. Patient and/or hb family updated on plan of care and expected duration. Pain level reassessed. Patient is alert, oriented x 3, equal unlabored respirations, skin warm/dry/pink. 16:13 Reassessment: Pt c/o nausea, dry heaving. Dr. Cruz notified, Zofran administered as hb ordered. Admission ordered, awaiting room assignment at this time. Vital Signs: 12:04 BP 108 / 77; Pulse 75; Resp 18; Temp 97.8; Pulse Ox 100% ; Pain 9/10; ll1 13:00 BP 105 / 74; Pulse 66; Resp 17; Pulse Ox 99% ; ll1 13:30 BP 132 / 76; Pulse 62; Resp 16; Pulse Ox 100% ; ll1 14:31 Weight 66.22 kg; ll1 14:59 BP 146 / 74; Pulse 64; Resp 18; Pulse Ox 99% ; ll1 16:47 BP 124 / 71 LA (auto/reg); Pulse 65; Resp 18; Temp 97.9(O); Pulse Ox 100% on R/A; Pain jp3 0/10; ED Course: 12:00 Patient arrived in ED. bd 12:01 Chandni English, JAVAN is Primary Nurse. ll1 12:06 Triage completed. ll1 12:06 Arm band placed on Patient placed in an exam room, on a stretcher. ll1 12:06 Patient has correct armband on for positive identification. Placed in gown. Bed in low ll1 position. Call light in reach. Side rails up X 1. campus monitor on. Pulse ox on. NIBP on. 12:06 Maintain EMS IV. Dressing intact. Site clean \T\ dry. Gauge \T\ site: 20 R hand. ll 1 12:27 Caio Cruz MD is Attending Physician. john paul 13:01 Yung Thomas MD is Private Physician. am2 13:02 XRAY Chest (1 view) In Process Unspecified. EDMS 14:27 Татьяна Azevedo MD is Hospitalizing Provider. john paul Administered Medications: 14:28 Not Given (received by EMS on the way here): Aspirin 81 mg PO once ll1 14:42 Drug: PlaVIX 75 mg Route: PO; ll1 15:03 Follow up: Response: No adverse reaction; RASS: Alert and Calm (0) ll1 14:43 Drug: Lovenox 1 mg/kg {Note: 66 mg.} Route: Sub-Q; Site: right lower abdomen; ll1 15:03 Follow up: Response: No adverse reaction; RASS: Alert and Calm (0) ll1 16:13 Drug: Zofran (Ondansetron) 4 mg Route: IVP; Site: right hand; hb Outcome: 14:27 Decision to Hospitalize by Provider. john paul 16:57 Admitted to Tele accompanied by tech, room 424, with chart, Report called to Man ruiz RN 16:57 Condition: stable 16:57 Instructed on the need for admit, Demonstrated understanding of instructions. 17:18 Patient left the ED. sara Signatures: Dispatcher [employer] EDMS Brina Diamond Corey, MD MD cha Baxter, Heather, JAVAN RN Basilia Palomo am2 Santo Easley jp3 Chandni English, RN RN ll1 Corrections: (The following items were deleted from the chart) 14:45 14:43 Lovenox 1 mg/kg Sub-Q in right lower abdomen ll1 ll1
[2019-07-20 14:33] LABS: Absolute Lymphocytes (CBC) 1.9 K/uL (0.7-4.9); Basophils % 1.5 % (0-1.3); Hematocrit 31.8 % (39.6-49.0); Lymphocytes % 31.9 % (15.3-44.8); MPV 9.2 fL (7.6-11.3)
[2019-07-20] MEDS ORDERED: CLOPIDOGREL 75 MG TABLET ONE (14:45)
[2019-07-20] MEDS ORDERED: ENOXAPARIN 80 MG/0.8 ML SQ ONE (14:45)
[2019-07-20 15:14] LABS: Anisocytosis 1+; Blood Morphology Comment NOTED (NOT SEEN); Platelet Estimate ADEQ; Urine White Blood Cell Casts OK
[2019-07-20] MEDS ORDERED: ONDANSETRON 4 MG/2 ML VIAL ONE (16:14)
[2019-07-20] MEDS ORDERED: ACETAMINOPHEN 500 MG TAB PO PRN (17:05)
[2019-07-20] MEDS ORDERED: NITROGLYCERIN 0.4 MG/TAB SL PRN (17:05)
[2019-07-20] MEDS ORDERED: MORPHINE 2 MG/ML SYR IV PRN (17:18)
--- NOTE | 2019-07-20 17:33 | EKG ---
Test Date: 2019-07-20 Test Time: 12:10:33 Programs Manager: SHANA MEASUREMENT RESULTS: Intervals: Rate: 77 VT: 158 QRSD: 86 QT: 382 QTc: 432 [place]: P: 54 VT: 158 QRS: 40 T: 81 INTERPRETIVE STATEMENTS: Sinus rhythm with marked sinus arrhythmia Nonspecific ST and T wave abnormality Abnormal ECG Compared to ECG 02/20/2019 12:19:41 Atrial premature complex(es) no longer present ST (T wave) deviation still present Electronically Signed On 07-20-19 17:32:10 CDT by Luis Carlos Quevedo
[2019-07-20 18:03] VITALS: BMI 21.5
[2019-07-20] MEDS: TOPIRAMATE 25 MG TAB PO SCH (20:05)
[2019-07-20] MEDS: GABAPENTIN 300 MG CAP PO SCH (20:05)
[2019-07-20] MEDS ORDERED: ATORVASTATIN 80 MG TAB PO SCH (21:00)
[2019-07-20] MEDS ORDERED: DONEPEZIL HCL 5 MG TAB PO SCH (21:00)
--- NOTE | 2019-07-21 01:30 | HP ---
Date of Admission: 07/20/2019 Primary Care Physician: Dr. Thomas. Chief Complaint: Chest pain. Code status full History Of Present Illness: Patient is a 69-year-old male with past medical history of hypertension; BPH, on alpha brandi; COPD, non-oxygen dependent; history of skin cancer; spinal meningitis as a child; history of RI and stroke; mild dementia; pacemaker, who recently had a heart catheterization in [place] approximately 2 months ago at the [facility]. Patient was found to have some mild stenosis, but no stents were placed. Patient states that he experienced sharp left-sided chest pain while at rest, associated with some nausea. Denied any vomiting, shortness of breath, fever, chills, or cough. Patient states that the pain lasted several minutes. Due to patient's symptoms being constant, moderate and progressively worsening, he decided to come to the ER for further evaluation. In the ER, his vital signs were stable. He was afebrile. His initial cardiac workup was negative including troponin level and EKG did not show any acute changes. When the patient was seen in the ER, he was awake, alert, and oriented x3. Chest x-ray was negative and showed some COPD and pacemaker leads. Past Medical History: COPD, non-oxygen dependent; skin cancer; history of spinal meningitis; RI; stroke; BPH; hypertension; dementia. Past Surgical History: Hernia repair, pacemaker placement, stent placement in the heart and right leg, hernia repair on the left side, skin cancer removed from the left arm, and cholecystectomy. Allergies: NO KNOWN DRUG ALLERGIES. Medications: List reviewed. Social History: Patient is a daily smoker. Denies any alcohol or illicit drug use. Lives at home with his son and his brother. Does need some assistance with his activities of daily living. Family History: Mother has heart disease, hypertension, stroke, ovarian cancer. Father has lung disease. Review of Systems: Ten-point system reviewed, negative except as per HPI. Physical Examination: Vital Signs: Blood pressure 108/77, pulse 75, respirations 18, temperature 97.8, O2 100% on room air. General: Awake, alert, oriented x3. Elderly male, in some mild distress. HEENT: Normocephalic, atraumatic. PERRLA. EOMI. Moist mucous membranes. Oropharynx is clear. Neck: Supple. No JVD. Trachea midline. CV: S1, S2. Regular rate and rhythm. Peripheral pulses present and weak. Respiratory: Moving air well bilaterally. No wheezing or stridor. No use of accessory muscles. Gastrointestinal: Abdomen is soft, nontender, nondistended. Positive bowel sounds. No guarding or rigidity. Extremities: No clubbing, cyanosis, or edema. No calf tenderness. Neuro: Cranial nerves 2 through 12 intact grossly. No focal neurological deficits. Speech is normal. Skin: No rashes. Normal skin turgor. Psych: Mood is okay. Affect is somewhat flat. Insight and judgment are good. Laboratory Data: Sodium 135, potassium 3.7, chloride 103, CO2 of 25, BUN 21, creatinine 1.05, glucose 101, calcium 9.2, magnesium 2.1. INR 1.08. WBC 5.8, H and H 10.2 and 31.8, platelets 194, neutrophils 53%. Chest x-ray shows COPD without visualization of acute abnormality. Assessment: 69-year-old male with: 1. Unstable angina. The patient has history of heart disease with apparent stent. Had recent heart catheterization in [facility] 2 months ago, shown to have some blockage, but no additional stent was placed. We will consult Cardiology. Obtain echocardiogram. Obtain serial EKG and cardiac enzymes. We will continue on chest pain guidelines, morphine and nitroglycerin p.r.n. 2. Chronic obstructive pulmonary disease, chronic bronchitis, non-oxygen dependent. Continue with albuterol p.r.n. 3. History of previous cerebrovascular accident without any residual deficits. Continue aspirin. Patient is also on Plavix. 4. Benign prostatic hypertrophy, on alpha blockers. 5. Essential hypertension, stable. We will continue home medications. 6. History of dementia, likely vascular dementia without any behavioral disturbance. 7. History of spinal meningitis in the past. 8. History of skin cancer on the left arm, status post surgery. 9. Peripheral vascular disease. Patient has stent in the right leg. 10. Status post pacemaker. We will need to have pacemaker interrogated if not done within the past 90 days. Plan: Admit patient to [facility] as observation. JO ANN Voice ID: [id number] MTDD
--- NOTE | 2019-07-21 01:39 | CON ---
Date of Consultation: 07/20/2019 Patient admitted on 07/20/[address] Azevedo's service. I saw the patient on 07/20/2019. Reason For Consultation: Chest pain. History Of Present Illness: Mr. Morfin is a 69-year-old male. He has a history of coronary artery disease. Apparently, recently he had a heart catheterization that was done in [place], [place] and h cony was told to be treated medically. He was found to have what sounds like a complete occlusion of th e blood vessel. No interventions were done. This was done 6 weeks ago at [facility] in [facility]. The records are still pending. He did have a negative stress test here in the hospital a year a go. He had a normal echocardiogram in the hospital here a year ago. He came in with constant chest pain that has been going on for few days. His pain radiates to the left upper arm, described as heav iness and pressure. His symptoms initially were relieved with nitroglycerin, but they came back and have been persistent since then. He has had according to him heart stents and leg stents in the past , has a pacemaker, and has had a leg bypass. He has a history of COPD, CVA, dementia, hernia, hypert ension, peripheral vascular disease, TIA, and gallstones. He denied any nausea, vomiting, diaphoresi s, PND, orthopnea, pedal edema, palpitation, or syncope. His chest x-ray shows COPD. EKG showed nor mal sinus rhythm with nonspecific changes. Past Medical History: As stated above. Allergies: HE IS ALLERGIC TO CODEINE. Review of Systems: Negative. Social History: Negative. Family History: Noncontributory. Medications: At home include; Lipitor, Plavix, gabapentin, losartan with hydrochlorothiazide, Proton ix, sertraline, Flomax, and topiramate. Physical Examination: Vital Signs: Stable. He was afebrile. HEENT: Negative. Neck: Supple with no bruit. Chest: Clear to auscultation and percussion. Cardiac: Revealed a regular rhythm and rate. No murmurs, gallops, or rubs. Abdomen: Benign. Extremities: Revealed no clubbing, cyanosis, or edema. Diagnostic Data: His hemoglobin was 10.2. His GFR is 70. Troponin was negative. BNP is negative. EKG and chest x-ray were fairly unremarkable except for COPD. Impression And Plan: Chest pain possibly secondary to chronic angina from an occlusion of a blood ve ssel. The patient just had a catheterization 6 weeks ago in [place] and I am certainly not going to repeat another one based on a negative troponin and a negative BNP and his symptoms at this point. His EKG is unremarkable. He has a stress test ordered for the morning and I agree with that. His ot her problems include the cerebrovascular accident, hypertension, peripheral arterial disease status p ost leg stents, coronary artery disease status post heart stent, pacemaker. He is status post femora l-popliteal on the left. He has dementia and he has cholelithiasis, history of transient ischemic at tack, cerebrovascular accident, dementia, and cholelithiasis. I agree with his present regimen. No plan for coronary intervention at this point. We will see what the stress test shows before and make any final decisions. I am surprised that the patient is not on any beta-brandi. I think we need t o add beta-brandi to his regimen certainly when he goes home and I will be happy to see him in the office as an outpatient after the testing, but we will see what the test shows first. RASHARD/REGINA Voice ID: [id number] Report ID: [id number]
[2019-07-21 05:31] LABS: Absolute Lymphocytes (CBC) 1.5 K/uL (0.7-4.9); Basophils % 1.9 % (0-1.3); Hematocrit 30.5 % (39.6-49.0); Lymphocytes % 28.5 % (15.3-44.8); MPV 8.9 fL (7.6-11.3); RBC Red Blood Cell Count 4.12 M/uL (4.33-5.43)
[2019-07-21 05:50] LABS: Potassium 3.5 mmol/L (3.5-5.1)
[2019-07-21] MEDS ORDERED: HOME MED 1 EA UNK (Pantoprazole Sodium [Protonix] 40 MG) PO SCH (06:00)
[2019-07-21] MEDS ORDERED: PANTOPRAZOLE 40MG TABLET PO SCH (06:00)
[2019-07-21] MEDS ORDERED: REGADENOSON 0.4 MG/5 ML SYR IV ONE (08:14)
[2019-07-21] MEDS ORDERED: ASPIRIN EC 81 MG TAB PO SCH (09:00)
[2019-07-21] MEDS ORDERED: LOSARTAN/HCTZ 50-12.5 PO SCH (09:00)
[2019-07-21] MEDS ORDERED: SERTRALINE HCL 50 MG TAB PO SCH (09:00)
[2019-07-21] MEDS ORDERED: HOME MED 1 EA UNK (Losartan/Hydrochlorothiazide [Losartan-Hctz 100-25 Mg Tab] 1 TAB) PO SCH (09:00)
[2019-07-21] MEDS ORDERED: ENOXAPARIN 40 MG/0.4 ML SQ SCH (09:00)
[2019-07-21] MEDS ORDERED: TAMSULOSIN 0.4 MG SR CAP PO SCH (09:00)
[2019-07-21] MEDS ORDERED: CLOPIDOGREL 75 MG TABLET PO SCH (09:00)
--- NOTE | 2019-07-21 10:06 | RAD REPORT ---
EXAM DESCRIPTION: NM - Rest Stress Cardiac Imaging - 07/21/2019 9:44 am CLINICAL HISTORY: Chest pain COMPARISON: Stress study May 2018 TECHNIQUE: The patient was administered approximately 10 mCi of Tc 99m Sestamibi prior to resting SP ECT imaging of the heart. The patient was then administered approximately 30 mCi of Tc 99m Sestamibi following exercise or pharmacologic stress. Multiplanar SPECT images were reviewed. FINDINGS: The end diastolic volume is 56 ml, the end systolic volume is 20 ml, and the ejection frac tion is 65 %. Ventricular volumes and ejection fraction similar to the comparison study Physiologic distribution of the radiopharmaceutical through the myocardium is noted. No stress induce d ischemic defect is seen to suggest stress induced ischemia. No fixed defect is seen to suggest hibe rnating myocardium or scarred myocardium. Ventricular wall activity pattern very similar to the comp arison study. IMPRESSION: No stress induced ischemia or other suspicious findings. Ventricular volumes and ejection fraction are normal range in similar to comparison.
[2019-07-21] MEDS: GABAPENTIN 300 MG CAP PO SCH (10:34)
[2019-07-21] MEDS: TOPIRAMATE 25 MG TAB PO SCH (10:34)
--- NOTE | 2019-07-21 11:22 | EKG ---
Test Date: 2019-07-20 Test Time: 21:39:13 Book Sorter: RT [place] MEASUREMENT RESULTS: Intervals: Rate: 68 WY: 168 QRSD: 76 QT: 398 QTc: 423 [place]: P: 83 WY: 168 QRS: 40 T: 79 INTERPRETIVE STATEMENTS: Sinus rhythm with marked sinus arrhythmia Nonspecific ST and T wave abnormality Abnormal ECG Compared to ECG 07/20/2019 12:10:33 No significant changes Electronically Signed On 07-21-19 11:21:30 CDT by Luis Carlos Quevedo
[2019-07-21 11:41] VITALS: BP 104/58; TEMP 98.2; O2SAT 98
--- NOTE | 2019-07-21 12:03 | ECHO ---
HEIGHT: 5 ft 9 in WEIGHT: 146 lb 0 oz DATE OF STUDY: 07/21/[address]: Татьяна Azevedo MD 2-DIMENSIONAL: YES M.MODE: YES DOPPLER: YES COLOR FLOW: YES TDS: NO PORTABLE: NO DEFINITY: NO BUBBLE STUDY: NO DIAGNOSIS: UNSTABLE ANGINA CARDIAC HISTORY: CATHERIZATION: YES SURGERY: YES PROSTHETIC VALVE: NO PACEMAKER: YES MEASUREMENTS (cm) DIASTOLIC (NORMALS) SYSTOLIC (NORMALS) IVSd 1.0 (0.6-1.2) LA Diam 2.6 (1.9-4.0) LVEF 74% LVIDd 4.0 (3.5-5.7) LVIDs 2.3 (2.0-3.5) %FS 42% LVPWd 0.9 (0.6-1.2) Ao Diam 3.0 (2.0-3.7) 2 DIMENSIONAL ASSESSMENT: RIGHT ATRIUM: NORMAL LEFT ATRIUM: NORMAL RIGHT VENTRICLE: NORMAL LEFT VENTRICLE: NORMAL TRICUSPID VALVE: NORMAL MITRAL VALVE: NORMAL PULMONIC VALVE: NORMAL AORTIC VALVE: NORMAL PERICARDIAL EFFUSION: NONE AORTIC ROOT: NORMAL LEFT VENTRICULAR WALL MOTION: NORMAL. DOPPLER/COLOR FLOW: NORMAL. COMMENTS: NORMAL 2D ECHO WITH DOPPLER. NO WALL MOTION ABNORMALITY. NO EFFUSION. TECHNOLOGIST: MOSES PEARSON
--- NOTE | 2019-07-21 12:08 | TREADPHA ---
DX: UNSTABLE ANGINA Date of Study: 07/21/2019 Ht: 5' 9 " Wt: 146 lb 0 oz Consulting Physician: CHARLEY MEDICATIONS: TYLENOL, ASPIRIN, LIPITOR, PLAVIX, LOVENOX, NUERONTIN, HYZAAR, NITROSTAT, ZOLOFT, TOPAMAX, ARICEPT HISTORY: 69 YEAR OLD MALE THAT WAS ADMITTED FOR CHEST PAIN. HISTORY OF COPD, CEREBRAL VASCULAR ACCIDENT, HYPERTENSION, MYOCARDIAL INFARCTION, PERIPHERAL VEIN DISORDER, PACEMAKER, STENTS, SMOKER. PHYSICIAL EXAMINATION: RESTING B.P.: 126/71 RESTING H.R.: 67 RESTING EKG: SINUS RHYTHM, NORMAL ST PROTOCOL: LEXISCAN EXERCISE TIME: 3:30 B.P. AT PEAK STRESS: 99/67 IMPRESSION: LEXISCAN STRESS TEST PERFORMED. CARDIOLITE INJECTED PER PROTOCOL. NO SUPRA VENTRICULAR TACHYCARDIA, NO VENTRICULAR TACHYCARDIA, NO ARRHYTMIA NOTED. PATIENT DENIED CHEST PAIN. TOLERATED WELL. RESPIRATIONS EVEN NON LABORED. SEE NUCLEAR MEDICINE REPORT.
--- NOTE | 2019-07-21 20:03 | DS ---
Date of Discharge: 07/21/2019 Consultants: Dr. Quevedo with Cardiology. Procedures: Cardiac stress test shows no stress-induced ischemia or other suspicious findings. Phar macological Lexiscan stress test shows no SVT, no arrhythmia. Discharge Diagnoses: 1.Unstable angina. 2.Chronic obstructive pulmonary disease, chronic bronchitis. 3.History of cerebrovascular accident. 4.Benign prostatic hypertrophy. 5.Essential hypertension. 6.History of dementia, likely vascular without behavioral disturbance. 7.History of peripheral vascular disease status post stent and bypass. 8.Status post pacemaker. 9.History of skin cancer status post surgery. 10.History of spinal meningitis in the past. Hospital Course: Patient is a 69-year-old male with complicated past medical history of COPD, skin c ancers, AR, stroke, peripheral vascular disease with stents and bypass, BPH, hypertension, dementia, comes in with chest pain. Patient recently had cardiac catheterization done in [place] at [facility] about 6-8 weeks ago. Records were requested, but are not available. Patient did not receive any further stents at that time. Patient was admitted to rule out ACS and thought to have unstable angina due to his history of coronary artery disease. Cardiac enzymes were negative. Lipid panel wa s within normal limits except for HDL, which was low. LDL was below 100. Dr. Quevedo with Cardiolog y recommended cardiac stress test, which was negative for any stress-induced ischemia. He did not pl an on any further repeat catheterization. His echo showed an EF of 74% with no wall motion abnormali ty. This is likely small-vessel disease. Patient was then cleared for discharge once the stress haroon t was negative. He was found to be anemic as well. He needs to have further workup as an outpatient including iron studies. His MCV is low. He may have iron deficiency. He is to have his cancer scr eenings completed including colonoscopy, amongst other age appropriate cancer screenings. Patient wa s then discharged home in a stable condition. Activity: As tolerated. Medications: As per medication reconciliation list. We will add low-dose beta brandi due to his hi story of heart disease. He does have a low resting heart rate in the 70s to 60s. Therefore, we will give trial of low-dose Coreg, this can be adjusted by his supervisor extruding department or primary care physician on an outpatient basis. Diet: Heart healthy. Activity: As tolerated. Followup: Follow up with primary care physician in 1 week. Return to ER for worsening condition. F ollow up with supervisor extruding department, Dr. Quevedo in 2 weeks. Physical Examination: General: Awake, alert, and oriented x3, no acute distress, elderly male. CV: S1, S2. Respiratory: Moving air well bilaterally. Abdomen: Abdomen is soft, nontender, nondistended. Positive bowel sounds. Extremities: No clubbing, cyanosis, or edema. Neurologic: Nonfocal. SA/MODL Voice ID: [id number] Report ID: [id number]
--- NOTE | 2019-07-22 21:18 | PN ---
Date of Progress Note: 07/21/2019 Mr. Morfin had come in with chest pain and he has known coronary artery disease. Recent catheteriz ation in June revealed what appeared to be a total occlusion of a blood vessel. This catheterizatio n was done at [facility] in [place]. Attempt to contact them and get records have not been successful so far. Records are still pending. Patient's symptoms are definitely consistent with chr onic stable angina. He did undergo an echocardiogram and a stress test, which was negative for ische cristofer. I would continue his regimen. He can go home on beta-blockers, aspirin, statin, and I will be happy to follow up with him in my office in the next 2 weeks. He can increase his beta-brandi on an as-needed basis. RASHARD/REGINA Voice ID: [id number] Report ID: [id number]
== END 2019-07-21 13:04 | disposition home or self-care (01) ==
LOC: ER 11:57 → ERHOLD 15:15 → INTOOBSV 15:15 → 4TH 16:58
PROVIDERS: ADMIT Family Medicine; ATTEND Family Medicine
DX: I20.0 Unstable angina (principal); J44.9 Chronic obstructive pulmonary disease, unspecified; N40.0 Benign prostatic hyperplasia without lower urinary tract symptoms; I10 Essential (primary) hypertension; F03.90 Unspecified dementia, unspecified severity, without behavioral disturbance, psychotic disturbance, mood disturbance, and anxiety; J42 Unspecified chronic bronchitis; I73.9 Peripheral vascular disease, unspecified; I25.10 Atherosclerotic heart disease of native coronary artery without angina pectoris; I99.8 Other disorder of circulatory system; F17.200 Nicotine dependence, unspecified, uncomplicated; I25.2 Old myocardial infarction; Z95.0 Presence of cardiac pacemaker; Z86.73 Personal history of transient ischemic attack (TIA), and cerebral infarction without residual deficits
CPT/HCPCS: 93005 ×2; 93017; 93306; 85025 ×2; 80048 ×2; 36415; 83735; 85610; 80061; 80076; 84484 ×3; 83880; 71045; 94760 ×4; 78452; 96372; 96374; 99285; J1650 ×2; J2270; J2785; J2405; A9500; G0378 ×3

== ENCOUNTER 2021-12-24 13:34 | Observation (INO) | payer OTHER ==
--- OUTSIDE RECORDS SUMMARY | 2021-12-24 13:44 | XMS REPORT | Continuity of Care Document ---
:1950 Demographics Address [address] [place] [address] Mobile Phone Email Address Preferred Language Hungarian Marital Status Unknown Orthodox Affiliation Unknown Race Unknown Additional Race(s) Unavailable White Unavailable Ethnic Group Unknown Author Organization [facility] t Address [address] [place] [address] Support Name Relationship Address Phone CATHY MOREJON Sister Unavailable Unavailable MD CLINT FERRER. Primary Care Physician [address] [place] [address] MD DEE[facility] Emergency Provider [address] [place] [address] ACACIA PENA Un[place] [address] [place] [address] ACACIA PENA [address]/09 [place] [address] Maurice Pena, Child [address] [phone] [place] [id number] Care Team Providers Name Role Phone CLINT FERRER Primary Care Physician Unavailable SEBASTIAN NOLASCO Attending Clinician Unavailable Mabel Vincent RN Attending Clinician Unavailable ESTEBAN LEONE Attending Clinician Unavailable Leeanne Hawley MD Attending Clinician Tunde aGmez DO Attending Clinician Esteban Leone MD Attending Clinician MANISHA SIDHU Attending Clinician Unavailable Doctor Unassigned, [place] Attending Clinician Unavailable Jessica Coley RN Attending Clinician Unavailable Richi Castellon DO Attending Clinician Mariajose Garcia MD Attending Clinician [phone] FAUSTINO WONG Attending Clinician Unavailable Faustino Wong MD Attending Clinician LEEANNE HAWLEY Attending Clinician Unavailable KEREN GARCIA Attending Clinician Unavailable Keren Garcia DO Attending Clinician Sebastian Nolasco MD Attending Clinician Pablo Fairbanks CRNA Attending Clinician Alley Hopper MD Attending Clinician BEN ANGELES Attending Clinician Unavailable Only, Adc Test Attending Clinician Unavailable Ben Angeles MD Attending Clinician Pob, Ad[facility] Lab Main Attending Clinician Unavailable RED MANCUSO Attending Clinician Unavailable JESUS SALINAS Attending Clinician Unavailable VANDANA ACOSTA Attending Clinician Unavailable Divina Nowak Attending Clinician LOU AVERY Attending Clinician Unavailable MECCA STERLING Attending Clinician Unavailable SEBASTIAN NOLASCO Admitting Clinician Unavailable TUNDE GAMEZ Admitting Clinician Unavailable Tunde Gamez DO Admitting Clinician Mariajose Garcia MD Admitting Clinician [phone] FAUSTINO WONG Admitting Clinician Unavailable LEEANNE HAWLEY Admitting Clinician Unavailable KEREN GARCIA Admitting Clinician Unavailable Sebastian Nolasco MD Admitting Clinician RED MANCUSO Admitting Clinician Unavailable JESUS SALINAS Admitting Clinician Unavailable ADITYA PHOENIX Admitting Clinician Unavailable Divina Nowak Admitting Clinician LOU AVERY Admitting Clinician Unavailable MECCA STERLING Admitting Clinician Unavailable Payers Payer Name Policy Type Policy Number Effective Date Expiration Date S [facility] [id number] 2019 DUAL COMPLETE HMO 00:00:00 [facility] PL[facility] [id number] 2011 00:00:00 2 M [id number] 2 C [id number] Problems Condition Condition Condition Status Onset Resolution Last Treating Co mments Source Name Details Category Date Date Treatment Clinician Date 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 0-05 ity of disease disease 00:00: [place] involving involving 00 Medi waqar [place] Branch coronary coronary artery of artery of [place] heart heart without without angina angina pectoris pectoris PAD PAD Disease Active 2021-03 Univers (periphera (periphera 0-05 it y of l artery l artery 00:00: [place] disease) disease) 00 Medica l Branch Bilateral Bilateral Disease Active 2021-03 Uni vers carotid carotid 0-05 ity of artery artery 00:00: [place] stenosis stenosis 00 Medica l Branch Pacemaker Pacemaker Disease Active 2021-03 Uni vers 0-05 ity of 00:00: [place] 00 Medical Branch Pulmonary Pulmonary Disease Active 2021-03 Uni vers hypertensi hypertensi 0-05 it y of on on 00:00: [place] 00 Medical Branch Elevated Elevated Disease Active 2021-03 Unive rs brain brain 0-05 ity of natriureti natriureti [place] c peptide c peptide 00 Medi waqar (BNP) (BNP) Branch level level E44.0 E44.0 Disease Active 2021-03 Univers Moderate Moderate 0-05 ity of protein protein 00:00: [place] calorie calorie 00 Medical malnutriti malnutriti Br anch on on COPD COPD Disease Active 2021-03 Univers exacerbati exacerbati 0-04 it y of on on 00:00: [place] 00 Medical Branch Slurring Slurring Disease Active Unive rs of speech of speech 9-21 ity of 00:00: [place] 00 Medical Branch Chest pain Chest pain Disease Active U nivers 9-20 ity of 00:00: [place] Medical Branch Left-sided Left-sided Disease Active U nivers weakness weakness 9-19 ity of 00:00: [place] Medical Branch Stroke-lik Stroke-lik Disease Active 0 U nivers e symptom e symptom 9-19 ity of 00:00: [place] 00 Medical Branch CHEST PAIN CHEST Diagnosis Active 2017-032018-02-21 Memoria PAIN 0-23 15:18:00 l Active 00:00: Tanvir 12/28/2017 [facility] PRABHA PRABHA Diagnosis Active 2017-032017-12-28 Memoria BILLING BILLING 0-23 15:05:00 l Active 00:00: Tanvir 12/28/2017 [facility] CVA CVA Diagnosis Active 2017-032017-12-28 Mem oria Active 0-23 20:41:00 l 12/28/2017 00:00: Eric pena [address] Peripheral Periphera Problem 2018-07-19 Memoria vascular l vascular 12:57:08 l disease, disease, Eric n unspecifie unspecifie d d 07/19/2018 [facility] 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 2018-07-19 Memor 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 He rmann 9 [facility] Presence Presence Problem 2018-07-19 Memoria of of 12:57:08 l coronary coronary Eric n angioplast angioplast y implant y implant and graft and graft 07/19/2018 [facility] Personal Personal Problem 2018-07-19 Memoria history of history of 12:57:08 l other other [place] malignant malignant neoplasm neoplasm of skin of skin 07/19/2018 [facility] Nicotine Nicotine Problem 2018-07-19 Memoria dependence dependence 12:57:08 l , , [place] cigarettes cigarettes , , uncomplica uncomplica jw jw 07/19/2018 [facility] Presence Presence Problem 2018-07-19 Memoria of cardiac of cardiac 12:57:08 l pacemaker pacemaker Herm radha 07/19/2018 [facility] 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 Problem 2018-07-19 Memoria (current) (current) 12:57:08 l use of use of [place] aspirin aspirin 07/19/2018 [facility] 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 Problem 2018-07-19 Me moria (current) term 12:57:08 l use of (current) Tanvir antithromb use of otics/anti antithromb platelets otics/anti platelets 07/19/2018 [facility] CHEST CHEST Diagnosis Active 2018-02-21 Mem oria PAIN, PAIN, 15:18:00 l UNSPECIFIE UNSPECIFIE He rmann D D Active [facility] Other Other Problem 2018-07-19 Memor ia chest pain chest pain 12:57:08 l Eric n 9 [facility] Unspecifie Problem 2018-07-19 M emoria d atrial Unspecifie 12:57:08 l fibrillati d atrial Herm radha on fibrillati on 07/19/2018 [facility] Essential Essential Problem 2018-07-19 Memoria (primary) (primary) 12:57:08 l hypertensi hypertensi He rmann on on 07/19/2018 [facility] 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 12:57:08 l heart heart [place] disease of disease of unga un[place] coronary coronary artery artery without without angina angina pectoris pectoris 07/19/2018 [facility] 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, disorder, Herm radha single single episode, episode, unspecifie unspecifie d d 07/19/2018 [facility] Personal Personal Problem 2018-07-19 Memoria history of history of 12:57:08 l transient transient Herm radha ischemic ischemic attack attack (TIA), and (TIA), and cerebral cerebral infarction infarction without without residual residual deficits deficits 07/19/2018 [facility] No known No known Disease Unive rs active active ity of problems problems [facility] History of Past Illness Condition Condition Condition Status Onset Resolution Last Treating Co mments Source Name Details Category Date Date Treatment Clinician Date Syncope Syncope Problem 2017-032018-07-19 2018-07-19 Memoria and and 12:57:08 12:57:08 l collapse collapse 03:09: Eric n 01/05/2018 00 9 [facility] Allergies, Adverse Reactions, Alerts Allergy Allergy Status Severity Reaction(s) Onset Inactive Treating Comm ents Source Name Type Date Date Clinician No Known NA Active 2020-0 [facility] Allergie -09 [facility]osp[facility] 21:54: l 26 ([facility] nt) No Known NA Active 2020-0 [facility] Allergie -09 [facility]ospita [facility] 13:20: l 51 ([place] [facility]) No Known NA Active 2020-0 [facility] Allergie -09 Hospita s 13:20: l 46 ([facility] nt) No known Miscella Active U Not 2020-0 [facility] ne[facility] Specified 05-14 Hospita Allergie Allergy 10:56: l s 12 ([facility] nt) Denies Miscella Active U Not 2020-0 [facility] latex neous Specified 05-14 Hospita allergy Allergy 10:56: l 12 ([facility] nt) No known Miscella Active U Not 2020-0 [facility] drug neous Specified Hospita Allergie Allergy 10:56: l s 12 ([facility]) Denies Miscella Active U Not 2020-0 [facility] latex neous Specified 3- Hospita allergy Allergy 10:56: l 12 ([facility]) Denies Miscella Active U Not 2020-0 [facility] latex neous Specified 3- Hospita allergy Allergy 10:56: l 12 ([facility]) No known Miscella Active U Not 2020-0 [facility] drug neous Specified 3- Hospita Allergie Allergy 21:36: l s 06 ([facility]) Denies Miscella Active U Not 2020-0 [facility] latex neous Specified 3- Hospita allergy Allergy 21:36: l 06 ([facility]) No known Miscella Active U Not 2020-0 [facility] drug neous Specified 3- Hospita Allergie Allergy 21:36: l s 06 ([facility]) Denies Miscella Active U Not 2020-0 [facility] latex neous Specified 3- Hospita allergy Allergy 21:36: l 06 ([facility]) No known Miscella Active U Not 2020-0 [facility] drug neous Specified 3-07 Hospita Allergie Allergy 21:36: l s 06 ([facility]) Denies Miscella Active U Not 2020-0 [facility] latex neous Specified 3- Hospita allergy Allergy 21:36: l 06 ([facility]) No known Miscella Active U Not 2020-0 [facility] drug neous Specified 3- Hospita Allergie Allergy 21:36: l s 06 ([facility]) Denies Miscella Active U Not 2020-0 [facility] latex neous Specified 3- Hospita allergy Allergy 21:36: l 06 ([facility]) No known Miscella Active U Not 2020-0 [facility] drug neous Specified 3-07 Hospita Allergie Allergy 21:36: l s 06 ([facility]) Denies Miscella Active U Not 2020-0 [facility] latex neous Specified 3-07 Hospita allergy Allergy 21:36: l 06 ([facility]) No known Miscella Active U Not 2020-0 Baptis t drug neous Specified 3-07 Hospita Allergie Allergy 21:36: l s 06 ([facility]) Denies Miscella Active U Not 2020-0 [facility] latex neous Specified 3-07 Hospita allergy Allergy 21:36: l 06 ([facility]) No known Miscella Active U Not 2020-0 Baptis t drug neous Specified 3-07 Hospita Allergie Allergy 21:36: l s 06 ([facility]) Denies Miscella Active U Not 2020-0 [facility] latex neous Specified 3-07 Hospita allergy Allergy 21:36: l 06 ([facility]) No known Miscella Active U Not 2020-0 Baptis t drug neous Specified 3-07 Hospita Allergie Allergy 21:36: l s 06 ([facility]) Denies Miscella Active U Not 2020-0 [facility] latex neous Specified 3- Hospita allergy Allergy 21:36: l 06 ([facility]) No known Miscella Active U Not 2020-0 Baptis t drug neous Specified 3-07 Hospita Allergie Allergy 21:36: l s 06 ([facility]) Denies Miscella Active U Not 2020-0 [facility] latex neous Specified 3-07 Hospita allergy Allergy 21:36: l 06 ([facility]) No known Miscella Active U Not 2020-0 Baptis t drug neous Specified 3-07 Hospita Allergie Allergy 21:36: l s 06 ([facility]) Denies Miscella Active U Not 2020-0 [facility] latex neous Specified 3-07 Hospita allergy Allergy 21:36: l 06 ([facility]) No known Miscella Active U Not 2020-0 Baptis t drug neous Specified 3-07 Hospita Allergie Allergy 21:36: l s 06 ([facility]) Denies Miscella Active U Not 2020-0 [facility] latex neous Specified 3-07 Hospita allergy Allergy 21:36: l 06 ([facility]) No known Miscella Active U Not 2020-0 Baptis t drug neous Specified 3-07 Hospita Allergie Allergy 21:36: l s 06 ([facility]) Denies Miscella Active U Not 2020-0 [facility] latex neous Specified 3-07 Hospita allergy Allergy 21:36: l 06 ([facility] nt) No known Miscella Active U Not 2020-0 Baptis t drug neous Specified 05-12 Hospita Allergie Allergy 21:36: l s 06 ([facility] nt) Denies Miscella Active U Not 2020-0 Buddhism latex neous Specified 05-12 Hospita allergy Allergy 21:36: l 06 ([facility] nt) No known Miscella Active U Not 2020-0 Baptis t drug neous Specified 05-12 Hospita Allergie Allergy 17:44: l s 59 ([facility] nt) Denies Miscella Active U Not 2020-0 Buddhism latex neous Specified 05-12 Hospita allergy Allergy 17:44: l 59 ([facility] nt) No known Miscella Active U Not 2020-0 Baptis t drug neous Specified 05-12 Hospita Allergie Allergy 17:44: l s 59 ([facility] nt) Denies Miscella Active U Not 2020-0 Buddhism latex neous Specified 05-12 Hospita allergy Allergy 17:44: l 59 ([facility] nt) No known Miscella Active U Not 2020-0 Baptis t drug neous Specified 05-12 Hospita Allergie Allergy 17:44: l s 59 ([facility] nt) Denies Miscella Active U Not 2020-0 Buddhism latex neous Specified 05-12 Hospita allergy Allergy 17:44: l 59 ([facility] nt) No Known NA Active 2020-0 [facility] Allergie 05-12 Hospita s 17:44: l 54 ([facility] nt) No Known NA Active 2020-0 [facility] Allergie 05-12 Hospita s 16:40: l 57 ([facility] nt) NO KNOWN Allergy Active [facility] NO KNOWN Drug Active Univers ALLERGIE Class ity of S [facility] Social History Social Habit Start Date Stop Date Quantity Comments Source History of Cigarette Smoker Universi ty of tobacco use [facility] Exposure to 2021-11-29 2021-12-09 Not sure [facility]-2 00:00:00 18:14:00 [facility] Branch Education 2021-12-09 2021-12-09 10 University 00:00:00 00:00:00 [facility] Tobacco use and 2021-11-24 2021-11-24 Smokeless tobacco Un iversity of exposure 00:00:00 00:00:00 non-user [facility] Tobacco Comment 2021-11-24 2021-11-24 1-2 cig. /day Univer sity of 00:00:00 00:00:00 [facility] Social History 2017-12-29 2017-12-29 [facility] ermann 04:58:10 04:58:10 Sex [birth year] [employer] 00:00:00 00:00:00 Hospital Smoking Status Start Date Stop Date Source Tobacco smoking consumption [facility] unknown Smokes tobacco daily 2021-11-24 00:00:00 Univers ity of [facility] Medications Ordered Filled Start Stop Current Ordering Indication Dosage Frequency Signature Comments Components Source Medication Medication Date Date Medication? Clinician (SIG) Name Name predniSONE 2021-03 Yes 40mg 40 mg, Unive rs (DELTASONE) 0-07 Oral, ity of tablet 40 14:00: DAILY, [place] mg 00 First dose Medical on Wed Branch 12/12/21 at 0900, Until Discontinu ed, Routine predniSONE 2021-03- Yes [id number] 40mg Take 2 Univers 20 mg 0-07 10-13 tablets by ity of tablet 00:00: 04:59 mouth in [place] 00 :00 the Medical morning [place] for 5 days. predniSONE 2021-03- Yes [id number] 40mg Take 2 Univers 20 mg 0-07 10-13 tablets by ity of tablet 00:00: 04:59 mouth in [place] 00 :00 [facility] Medical morning [place] for 5 days. METOPROLOL 2021-03 Yes 25mg Take 25 mg U nivers TARTRATE 0-06 by mouth 2 ity o f ORAL 17:38: (two) [place] 40 times Medical daily. Branch ipratropium 2021-03 Yes .5mg Inhale 0.5 Univers (ATROVENT) 0-06 mg. ity of 0.02 % 17:38: [place] nebulizer 40 Medical solution Branch budesonide- 2021-03 Yes 2{puff} Inhale 2 Univers formoterol 0-06 Puffs 2 ity of (SYMBICORT) 17:38: (two) [place] 160-4.5 40 times Medical mcg/actuati daily. Branch on inhaler hydroCHLORO 2021-03 Yes 25mg Take 25 mg Univers thiazide 25 0-06 by mouth ity of mg tablet 17:38: in the [place] 40 morning. Medical Branch topiramate 2021-03 Yes 25mg Take 25 mg U nivers 25 mg 0-06 by mouth ity of tablet 17:38: in the [place] 40 morning Medical and 25 mg Branch in the evening. losartan 25 2021-03 Yes 25mg Take 25 mg Univers mg tablet 0-06 by mouth ity of 17:38: in the [place] 40 morning. Medical Branch donepeziL 5 2021-03 Yes 5mg Take 5 mg U nivers mg tablet 0-06 by mouth ity of 17:38: at [place] 40 bedtime. Medical Branch METOPROLOL 2021-03 Yes 25mg Take 25 mg U nivers TARTRATE 0-06 by mouth 2 ity o f ORAL 17:38: (two) [place] 40 times Medical daily. Branch ipratropium 2021-03 Yes .5mg Inhale 0.5 Univers (ATROVENT) 0-06 mg. ity of 0.02 % 17:38: [place] nebulizer 40 Medical solution Branch budesonide- 2021-03 Yes 2{puff} Inhale 2 Univers formoterol 0-06 Puffs 2 ity of (SYMBICORT) 17:38: (two) [place] 160-4.5 40 times Medical mcg/actuati daily. Branch on inhaler hydroCHLORO 2021-03 Yes 25mg Take 25 mg Univers thiazide 25 0-06 by mouth ity of mg tablet 17:38: in the [place] 40 morning. Medical Branch topiramate 2021-03 Yes 25mg Take 25 mg U nivers 25 mg 0-06 by mouth ity of tablet 17:38: in the [place] 40 morning Medical and 25 mg Branch in the evening. losartan 25 2021-03 Yes 25mg Take 25 mg Univers mg tablet 0-06 by mouth ity of 17:38: in the [place] 40 morning. Medical Branch donepeziL 5 2021-03 Yes 5mg Take 5 mg U nivers mg tablet 0-06 by mouth ity of 17:38: at [place] 40 bedtime. Medical Branch ALPRAZolam 2021-03- No .25mg 0.25 mg, U nivers (XANAX) 0-06 10-06 Oral, ity of tablet 0.25 02:15: 01:35 ONCE, 1 [place] mg 00 :00 dose, On Medical Wed12/10/21 at 2115, Routine enoxaparin 2021-03 Yes 40mg 40 mg, Unive rs (LOVENOX) 0-05 Subcutaneo ity of injection 14:00: [place], [place]ILY, [place] 40 mg 00 First dose Medical on Wed12/10/21 at 0900, Until Discontinu ed, Routine losartan 2021-03 Yes 25mg 25 mg, Univers (COZAAR) 0-05 Oral, ity of tablet 25 14:00: DAILY, [place] mg 00 First dose Medical on Wed12/10/21 at 0900, Until Discontinu ed, Routine hydroCHLORO 2021-03 Yes 25mg 25 mg, Univ ers thiazide 0-05 Oral, ity of (ESIDRIX) 14:00: DAILY, [place] tablet 25 00 First dose Medi waqar mg on Wed12/10/21 at 0900, Until Discontinu ed, Routine clopidogreL 2021-03 Yes 75mg 75 mg, Univ ers (PLAVIX) 75 0-05 Oral, ity of mg tablet 14:00: DAILY, [place] 75 mg 00 First dose Medical on Wed12/10/21 at 0900, Until Discontinu ed, Routine aspirin EC 2021-03 Yes 81mg 81 mg, Unive rs tablet 81 0-05 Oral, ity of mg 14:00: DAILY, [place] 00 First dose Medical on Wed12/10/21 at 0900, Until Discontinu ed, Routine ipratropium 2021-03 Yes 3mL 3 mL, Unive rs -albuteroL 0-05 Inhalation ity of (DUONEB) 13:00: , QID, [place] 0.5 mg-3 00 First dose Medic al mg(2.5 mg on Wed base)/3 mL 12/10/21 at nebulizer 0800, solution 3 Until mL Discontinu ed, Routine topiramate 2021-03 Yes 25mg 25 mg, Unive rs (TOPAMAX) 0-05 Oral, BID, ity of tablet 25 13:00: First dose [place] mg 00 on Wed Medical 12/10/21 at Branch 0800, Until Discontinu ed, Routine
count team member approving Restricted medication : ILDA WREN metoprolol 2021-03 Yes 25mg 25 mg, Unive rs tartrate 0-05 Oral, BID, ity o f (LOPRESSOR) 13:00: First dose [place] tablet 25 00 on Wed Medical mg 12/10/21 at Branch 0800, Until Discontinu ed methylpredn 2021-03 No 40mg 40 mg, Uni vers isolone sod 0-05 10-06 Slow IV ity of succ 05:00: 20:14 Push, Q6H, [place] (SOLU-MEDRO 00 :43 First dose Me dical L) on Wed injection 12/10/21 at 40 mg 0000, Until Discontinu ed, Routine donepeziL 2021-03 Yes 5mg 5 mg, Univers (ARICEPT) 0-05 Oral, QHS, ity of tablet 5 mg 02:30: First dose [place] 00 on Wed [facility] 12/09/21 at Branch 2130, Until Discontinu ed, Routine budesonide- 2021-03 Yes 2{puff} 2 Puff, Univers formoteroL 0-05 Inhalation ity of (SYMBICORT) 02:30: , BID, [place] 160-4.5 00 First dose Medica l mcg/actuati on Wed on inhaler 12/09/21 at 2 Puff 0, Until Discontinu ed, Routine atorvastati 2021-03 Yes 40mg 40 mg, Univ ers n (LIPITOR) 0-05 Enteral, ity of tablet 40 02:30: QHS, First [place] mg 00 dose on Medical [facility] Branch 12/09/21 at 2130, Until Discontinu ed, Routine ipratropium 2021-03 Yes 3mL 3 mL, Unive rs -albuteroL 0-05 Inhalation ity of (DUONEB) 02:20: , QIDPRN, [place] 0.5 mg-3 49 Starting Medical mg(2.5 mg on Wed [place] base)/3 mL 12/09/21 at nebulizer 0, solution 3 Until mL Discontinu ed, Routine, Wheezing, Shortness of Breath, Bronchospa sm, Chest tightness ondansetron 2021-03 Yes 4mg 4 mg, Slow Univers (ZOFRAN 0-05 IV Push, ity of (PF)) 02:20: Q6HPRN, [place] injection 4 42 Starting Medi waqar mg on [facility] Branch 12/09/21 at 0, Until Discontinu ed, Routine, Nausea and Vomiting (N/V) traMADoL 2021-03- Yes 50mg 50 mg, Univer s (ULTRAM) 0-05 10-07 Oral, ity of tablet 50 02:20: 02:19 Q8HPRN, [place] mg 38 :38 Starting Medical on Branch 12/09/21 at 0, Until Amber 12/11/21 at 9, Routine, Pain (scale 4-6) acetaminoph 2021-03 Yes 650mg 650 mg, Un sarahy en 0-05 Oral, ity of (TYLENOL) 02:20: Q6HPRN, [place] tablet 650 35 Starting Medic al mg on [facility] Branch 12/09/21 at 2119, Until Discontinu ed, Routine, Pain (scale 1-3) dicyclomine 2021-03 Yes 20mg 20 mg, Univ ers (BENTYL) 0-05 Oral, ity of tablet 20 02:16: Q6HPRN, [place] mg 51 Starting Medical on [facility] Branch 12/09/21 at 2116, Until Discontinu ed, Routine, Abdominal pain cyclobenzap 2021-03 Yes 5mg 5 mg, Unive rs rine 0-05 Oral, ity of (FLEXERIL) 02:16: TIDPRN, [place] tablet 5 mg 33 Starting Medi waqar on [facility] Branch 12/09/21 at 211, Until Discontinu ed, Routine, Muscle Spasms methylpredn 2021-03- No 125mg 125 mg, U nivers isolone sod 0-04 10-04 Slow IV ity of succ 22:00: 21:08 Push, ONCE [place] (SOLU-MEDRO 00 :00 NOW, 1 Medica l L) dose, On Branch injection Tue 125 mg 12/09/21 at 1700, LORAINE ipratropium 2021-03- No 3mL 3 mL, Univ ers -albuteroL 0-04 10-04 Inhalation it y of (DUONEB) 22:00: 21:08 , ONCE, 1 [place] 0.5 mg-3 00 :00 dose, On Medical mg(2.5 mg [facility] Branch base)/3 mL 12/09/21 at nebulizer 1700, LORAINE solution 3 mL iopamidol 2021-03- No [id number] 100mL 100 mL, Univers (ISOVUE 0-12-09 Intravenou ity o f 370-500 mL) 21:30: 20:21 s, ONCE, 1 [place] injection 00 :00 dose, On Medica l 100 mL e Branch 12/09/21 at 1630, Routine morpHINE (4 2021-03- No 2mg 2 mg, Slow Univers mg/mL) 012-09 IV Push, ity of injection 2 19:15: 19:47 ONCE, 1 [place] mg 00 :00 dose, On Medical Tue Branch 12/09/21 at 1415, STAT METOPROLOL 0 Yes 25mg Take 25 mg U nivers TARTRATE 9-21 by mouth 2 ity o f ORAL 16:47: (two) [place] 19 times Medical daily. Branch ipratropium 0 Yes .5mg Inhale 0.5 Univers (ATROVENT) 9-21 mg. ity of 0.02 % 16:47: [place] nebulizer 19 Medical solution Branch budesonide- 0 Yes 2{puff} Inhale 2 Univers formoterol 9-21 Puffs 2 ity of (SYMBICORT) 16:47: (two) [place] 160-4.5 19 times Medical mcg/actuati daily. Branch on inhaler hydroCHLORO 0 Yes 25mg Take 25 mg Univers thiazide 25 9-21 by mouth ity of mg tablet 16:47: in the [place] [address] morning. Medical Branch topiramate 0 Yes 25mg Take 25 mg U nivers 25 mg 9-21 by mouth ity of tablet 16:47: in the [place] [address] morning Medical and 25 mg Branch in the evening. losartan 25 0 Yes 25mg Take 25 mg Univers mg tablet 9-21 by mouth ity of 16:47: in the [place] [address] morning. Medical Branch donepeziL 5 0 Yes 5mg Take 5 mg U nivers mg tablet 9-21 by mouth ity of 16:47: at [place] [address] bedtime. Medical Branch METOPROLOL 2022-0 Yes 25mg Take 25 mg U nivers TARTRATE 9-21 by mouth 2 ity o f ORAL 16:47: (two) [place] 19 times Medical daily. Branch ipratropium 2021-0 Yes .5mg Inhale 0.5 Univers (ATROVENT) 9-21 mg. ity of 0.02 % 16:47: [place] nebulizer 19 Medical solution Branch budesonide- 2021-0 Yes 2{puff} Inhale 2 Univers formoterol 9-21 Puffs 2 ity of (SYMBICORT) 16:47: (two) [place] 160-4.5 19 times Medical mcg/actuati daily. Branch on inhaler hydroCHLORO 2021-0 Yes 25mg Take 25 mg Univers thiazide 25 9-21 by mouth ity of mg tablet 16:47: in the [place] [address] morning. Medical Branch topiramate 2021-0 Yes 25mg Take 25 mg U nivers 25 mg 9-21 by mouth ity of tablet 16:47: in the [place] [address] morning Medical and 25 mg Branch in the evening. losartan 25 2021-0 Yes 25mg Take 25 mg Univers mg tablet 9-21 by mouth ity of 16:47: in the [place] [address] morning. Medical Branch donepeziL 5 2021-0 Yes 5mg Take 5 mg U nivers mg tablet 9-21 by mouth ity of 16:47: at [place] [address] bedtime. Medical Branch METOPROLOL 2021-0 Yes 25mg Take 25 mg U nivers TARTRATE 9-21 by mouth 2 ity o f ORAL 16:47: (two) [place] 19 times Medical daily. Branch ipratropium 2021-0 Yes .5mg Inhale 0.5 Univers (ATROVENT) 9-21 mg. ity of 0.02 % 16:47: [place] nebulizer 19 Medical solution Branch budesonide- 2021-0 Yes 2{puff} Inhale 2 Univers formoterol 9-21 Puffs 2 ity of (SYMBICORT) 16:47: (two) [place] 160-4.5 19 times Medical mcg/actuati daily. Branch on inhaler hydroCHLORO 2-0 Yes 25mg Take 25 mg Univers thiazide 25 9-21 by mouth ity of mg tablet 16:47: in the [place] [address] morning. Medical Branch topiramate 2021-0 Yes 25mg Take 25 mg U nivers 25 mg 11-26 by mouth ity of tablet 16:47: in the [place] [address] morning Medical and 25 mg Branch in the evening. losartan 25 0 Yes 25mg Take 25 mg Univers mg tablet 11-26 by mouth ity of 16:47: in the [place] [address] morning. Medical Branch donepeziL 5 Yes 5mg Take 5 mg U nivers mg tablet 11-26 by mouth ity of 16:47: at [place] [address] bedtime. Medical Branch aspirin EC Yes 81mg 81 mg, Unive rs tablet 81 11-26 Oral, ity of mg 14:00: DAILY, [place] 00 First dose Medical on Wed Branch 11/26/21 at 0900, Until Discontinu ed, Routine Saline Yes [id number] 6mL 6 mL, Unive rs Bubble 11-26 Injection, ity of Study 13:11: SEE-INSTRU [place] 44 CTIONS, Medical Starting Branch on Wed11/26/21 at 0811, Until Discontinu ed, Routine predniSONE 2021- No 20mg Take 20 mg Univers (DELTASONE) 11-26 by mouth ity of 20 mg 12:11: 00:00 daily. [place] tablet :00 Medical Branch levofloxaci 2021- No 500mg Take 500 Univers n 11-26 mg by ity of (LEVAQUIN) 12:11: 00:00 mouth [place] 750 mg 19 :00 every 24 Medical tablet (twenty-fo Branch ur) hours. albuterol 0 2021- No 2.5mg Inhale 2.5 Univers (PROVENTIL) 11-26 mg every 4 i ty of 2.5 mg /3 12:11: 00:00 (four) [place] mL (0.083 19 :00 hours as Medica l %) needed for Branch nebulizer Wheezing solution or Shortness of Breath. clopidogrel 2021- No 75mg Take 75 mg Univers (PLAVIX) 75 11-26 by mouth ity of mg tablet 12:11: 00:00 daily. [place] 19 :00 Medical Branch atorvastati Yes [id number] 40mg Take 1 Univers n 40 mg 11-26 tablet ity of tablet 00:00: through [place] 00 enteral Medical tube at [facility]. clopidogreL 2021-0 Yes [id number] 75mg Take 1 Univers 75 mg 9-21 tablet by ity of tablet 00:00: mouth in [place] 00 the Medical morning. Branch atorvastati 2021-0 Yes [id number] 40mg Take 1 Univers n 40 mg 9-21 tablet ity of tablet 00:00: through [place] 00 enteral Medical tube at [place] bedtime. clopidogreL 2021-0 Yes [id number] 75mg Take 1 Univers 75 mg 9-21 tablet by ity of tablet 00:00: mouth in [place] 00 the Medical morning. Branch atorvastati 2021-0 Yes [id number] 40mg Take 1 Univers n 40 mg 9-21 tablet ity of tablet 00:00: through [place] 00 enteral Medical tube at [place] [facility]. clopidogreL 2021-0 Yes [id number] 75mg Take 1 Univers 75 mg 9-21 tablet by ity of tablet 00:00: mouth in [place] the Medical morning. [place] atorvastati 2021-0 Yes [id number] 40mg Take 1 Univers n 40 mg 9-21 tablet ity of tablet 00:00: through [place] 00 enteral Medical tube at [facility]. clopidogreL 2021-0 Yes [id number] 75mg Take 1 Univers 75 mg 9-21 tablet by ity of tablet 00:00: mouth in [place] the Medical morning. [place] atorvastati 2021-0 Yes [id number] 40mg Take 1 Univers n 40 mg 9-21 tablet ity of tablet 00:00: through [place] 00 enteral Medical tube at [place] [facility]. clopidogreL 2021-0 Yes [id number] 75mg Take 1 Univers 75 mg 9-21 tablet by ity of tablet 00:00: mouth in [place] the Medical morning. [place] aspirin 81 2021-0 2021- Yes [id number] 81mg Take 1 Univers mg EC 9-21 10-13 tablet by ity of tablet 00:00: 04:59 mouth in [place] 00 :00 the Medical morning [place] for 21 days. aspirin 81 2-0 2021- Yes [id number] 81mg Take 1 Univers mg EC 9-21 10-13 tablet by ity of tablet 00:00: 04:59 mouth in [place] 00 :00 the Medical morning [place] for 21 days. aspirin 81 2021-0 2022- Yes [id number] 81mg Take 1 Univers mg EC 9-21 10-13 tablet by ity of tablet 00:00: 04:59 mouth in [place] 00 :[address] [facility] for 21 days. aspirin 81 2021- Yes [id number] 81mg Take 1 Univers mg EC 9-21 10-13 tablet by ity of tablet 00:00: 04:59 mouth in [place] 00 :[address] [facility] for 21 days. aspirin 81 2021- Yes [id number] 81mg Take 1 Univers mg EC 9-21 10-13 tablet by ity of tablet 00:00: 04:59 mouth in [place] 00 :[address] [facility] for 21 days. sulfur 2021- No [id number] 5mL 5 mL, Univ ers hexafluorid 11-25- Intravenou i ty of e microsphr 20:30: 20:30 s, ONCE, 1 [place] (LUMASON) 00 :00 dose, On Medica l injection 5 [facility] 11/25/21 at 1530, Routine
count team member approving Restricted medication : DENICE BHAKTA clopidogreL Yes 75mg 75 mg, Univ ers (PLAVIX) 75 -20 Oral, ity of mg tablet 14:00: DAILY, [place] 75 mg 00 First dose Medical on [facility] 11/25/21 at 0900, Until Discontinu ed, Routine atorvastati Yes 40mg 40 mg, Univ ers n (LIPITOR) 9-20 Enteral, ity of tablet 40 02:00: QHS, First [place] mg 00 dose on [facility] 11/24/21 at 2100, Until Discontinu ed, Routine donepeziL Yes 5mg 5 mg, Univers (ARICEPT) 9-20 Oral, QHS, ity of tablet 5 mg 02:00: First dose [place] 00 on [facility] 11/24/21 at Branch 2100, Until Discontinu ed, Routine heparin Yes 5000U 5,000 Univers (porcine) 9-20 Units, ity of injection 01:00: [place]cut[place]o [place] 5,000 Units 00 us, Q12H, Med ical First dose Branch on [facility] 11/24/21 at 2000, Until Discontinu ed, Routine aspirin No 81mg 81 mg, Univers chewable 11-24 Oral, ONCE ity of tablet 81 23:45: 01:35 NOW, 1 [place] mg 00 :00 dose, On Medical [facility] 11/24/21 at 1845, STAT cyclobenzap Yes 5mg 5 mg, Unive rs rine 11-24 Oral, ity of (FLEXERIL) 23:35: TIDPRN, [place] tablet 5 mg 48 Starting Medi waqar on [facility] 11/24/21 at 1835, Until Discontinu ed, Routine, Muscle Spasms clopidogreL 2021- No 300mg 300 mg, U nivers (PLAVIX) 11-24 Oral, ity of 300 mg 23:35: 01:35 ONCE, 1 [place] tablet 300 00 :00 dose, On Medic al mg [facility] 11/24/21 at 1845, Routine albuterol Yes 2.5mg 2.5 mg, Univ ers (PROVENTIL) 11-24 Inhalation it y of 2.5 mg /3 23:34: , Q4HPRN, [place] mL (0.083 51 Starting Medica l %) on [facility] nebulizer 11/24/21 at solution 1834, 2.5 mg Until Discontinu ed, Routine, Wheezing, Shortness of Breath dicyclomine Yes 20mg 20 mg, Univ ers (BENTYL) 11-24 Oral, ity of tablet 20 23:34: Q6HPRN, [place] mg 37 Starting Medical on [facility] 11/24/21 at 1834, Until Discontinu ed, Routine, Abdominal pain NaCl 0.9% Yes 1000mL at 65 Unive rs (NS) IV 11-24 mL/hr, IV ity of infusion 23:15: Infusion, [place] 1,000 mL 00 CONTINUOUS Medic al , Starting Branch on [facility] 11/24/21 at 1815, Until Discontinu ed, Routine Omeprazole 2021- No Take by Uni vers Magnesium 11-24 mouth. ity of 20 mg 18:40: 00:00 [place] capsule 59 :00 [facility] Branch pantoprazol 2021- No 40mg Take 40 mg Univers e sodium 9-19 09-19 by mouth ity of (PROTONIX 18:40: 00:00 daily. [place] ORAL) 59 :00 [facility] Branch iopamidol 2021- No [id number] 80mL 80 mL, Univers (ISOVUE 11-23 Intravenou ity o f 370-500 mL) 09:30: 08:28 s, ONCE, 1 [place] injection 00 :00 dose, On Medica l 80 mL [facility] 11/23/21 at 0430, Routine morpHINE (4 No 4mg 4 mg, Slow Univers mg/mL) 11-23 IV Push, ity of injection 4 08:30: 07:43 ONCE, 1 [place] mg 00 :00 dose, On [facility] 11/23/21 at 0330, LORAINE ondansetron No 4mg 4 mg, Slow Univers (ZOFRAN 11-23 IV Push, ity of (PF)) 07:45: 07:44 ONCE, 1 [place] injection 4 00 :00 dose, On Medi waqar mg [facility] 11/23/21 at 0245, LORAINE aspirin No 325mg 325 mg, Unive rs tablet 325 11-23 Oral, ity of mg 07:45: 07:46 ONCE, 1 [place] 00 :00 dose, On [facility] 11/23/21 at 0245, STAT clopidogrel Yes 75mg Take 75 mg Univers (PLAVIX) 75 11-23 by mouth ity of mg tablet 06:17: daily. [address] clopidogreL 0 Yes [id number] 75mg Take 1 Univers 75 mg 9-18 tablet by ity of tablet 00:00: mouth in [place] 00 the Medical morning. Branch traMADoL 50 2021-0 Yes [id number] 50mg Take 1 Univ ers mg tablet 9-18 tablet by ity o f 00:00: mouth [place] 00 every 6 Medical (six) Branch hours as needed (pain). Indication s: acute pain ondansetron 2021-0 Yes [id number] 1 or 2 Univers 4 mg tablet 9-18 tablets ity o f 00:00: every 6 [place] 00 hours as Medical needed for Branch nausea traMADoL 50 2021-0 Yes [id number] 50mg Take 1 Univ ers mg tablet 9-18 tablet by ity o f 00:00: mouth [place] 00 every 6 Medical (six) Branch hours as needed (pain). Indication s: acute pain ondansetron Yes [id number] 1 or 2 Univers 4 mg tablet 9-18 tablets ity o f 00:00: every 6 [place] 00 hours as Medical needed for Branch nausea traMADoL 50 0 Yes [id number] 50mg Take 1 Univ ers mg tablet 9-18 tablet by ity o f 00:00: mouth [place] 00 every 6 Medical (six) Branch hours as needed (pain). Indication s: acute pain traMADoL 50 Yes [id number] 50mg Take 1 Univ ers mg tablet 9-18 tablet by ity o f 00:00: mouth [place] 00 every 6 Medical (six) Branch hours as needed (pain). Indication s: acute pain traMADoL 50 Yes [id number] 50mg Take 1 Univ ers mg tablet 9-18 tablet by ity o f 00:00: mouth [place] 00 every 6 Medical (six) Branch hours as needed (pain). Indication s: acute pain traMADoL 50 0 Yes [id number] 50mg Take 1 Univ ers mg tablet 9-18 tablet by ity o f 00:00: mouth [place] 00 every 6 Medical (six) Branch hours as needed (pain). Indication s: acute pain clopidogreL 2021- No [id number] 75mg Take 1 Univers 75 mg 11-23 tablet by ity of tablet 00:00: 00:00 mouth in [place] 00 :00 the Medical morning. Branch iopamidol 2021- No [id number] 64mL 64 mL, U nivers (ISOVUE 11-08 Intravenou ity o f 370-500 mL) 19:15: 18:17 s, ONCE, 1 [place] injection 00 :00 dose, On Medica l 64 mL 11/08/21 Branch at 1415, Routine morpHINE (4 2021- No 4mg 4 mg, Slow Univers mg/mL) 11-08 IV Push, ity of injection 4 18:36: 18:38 ONCE, 1 [place] mg 00 :00 dose, On Medical 11/08/21 Branch at 1345, STAT ondansetron 2021- No 4mg 4 mg, Slow Univers (ZOFRAN 11-08 09-03 IV Push, ity of (PF)) 18:36: 18:38 ONCE, 1 [place] injection 4 00 :00 dose, On Medi waqar mg 11/08/21 Branch at 1345, LORAINE hydroCHLORO 2021-0 Yes 25mg Take 25 mg Univers thiazide 25 9-03 by mouth ity of mg tablet 16:00: in the [place] [address] morning. Medical Branch topiramate 2021-0 Yes 25mg Take 25 mg U nivers 25 mg 9-03 by mouth ity of tablet 16:00: in the [place] [address] morning Medical and 25 mg Branch in the evening. losartan 25 2021-0 Yes 25mg Take 25 mg Univers mg tablet 9-03 by mouth ity of 16:00: in the [place] [address] morning. Medical Branch donepeziL 5 2021-0 Yes 5mg Take 5 mg U nivers mg tablet 9-03 by mouth ity of 16:00: at [place] [address] bedtime. Medical Branch pantoprazol 0 Yes 40mg Take 40 mg Univers e sodium -03 by mouth ity of (PROTONIX 16:00: daily. [place] ORAL) 20 Medical Branch hydroCHLORO 2021-0 Yes 25mg Take 25 mg Univers thiazide 25 -03 by mouth ity of mg tablet 16:00: in the [place] [address] morning. Medical Branch topiramate 2021-0 Yes 25mg Take 25 mg U nivers 25 mg 9-03 by mouth ity of tablet 16:00: in the [place] [address] morning Medical and 25 mg Branch in the evening. losartan 25 2021-0 Yes 25mg Take 25 mg Univers mg tablet -03 by mouth ity of 16:00: in the [place] [address] morning. Medical Branch donepeziL 5 2021-0 Yes 5mg Take 5 mg U nivers mg tablet 9-03 by mouth ity of 16:00: at [place] [address] bedtime. Medical Branch pantoprazol 2021-0 Yes 40mg Take 40 mg Univers e sodium 9-03 by mouth ity of (PROTONIX 16:00: daily. [place] ORAL) 20 Medical Branch dicyclomine 2021-0 Yes [id number] 20mg Take 1 Univers 20 mg 9-03 tablet by ity of tablet 00:00: mouth 4 [place] 00 (four) Medical times Branch daily. ondansetron 2021-0 Yes [id number] 4mg Take 1 Univers 4 mg 9-03 tablet by ity of disintegrat 00:00: mouth [place] ing tablet 00 every 4 Medica l (four) Branch hours as needed for Nausea and Vomiting (N/V). dicyclomine 2022-0 Yes [id number] 20mg Take 1 Univers 20 mg 9-03 tablet by ity of tablet 00:00: mouth 4 [place] 00 (four) Medical times Branch daily. ondansetron 2022-0 Yes [id number] 4mg Take 1 Univers 4 mg 9-03 tablet by ity of disintegrat 00:00: mouth [place] ing tablet 00 every 4 Medica l (four) Branch hours as needed for Nausea and Vomiting (N/V). dicyclomine 2022-0 Yes [id number] 20mg Take 1 Univers 20 mg 9-03 tablet by ity of tablet 00:00: mouth 4 [place] 00 (four) Medical times Branch daily. ondansetron 2022-0 Yes [id number] 4mg Take 1 Univers 4 mg 9-03 tablet by ity of disintegrat 00:00: mouth [place] ing tablet 00 every 4 Medica l (four) Branch hours as needed for Nausea and Vomiting (N/V). ondansetron 2022-0 Yes [id number] 4mg Take 1 Univers 4 mg 9-03 tablet by ity of disintegrat 00:00: mouth [place] ing tablet 00 every 4 Medica l (four) Branch hours as needed for Nausea and Vomiting (N/V). ondansetron 2022-0 Yes [id number] 4mg Take 1 Univers 4 mg 9-03 tablet by ity of disintegrat 00:00: mouth [place] ing tablet 00 every 4 Medica l (four) Branch hours as needed for Nausea and Vomiting (N/V). ondansetron 2022-0 Yes [id number] 4mg Take 1 Univers 4 mg 9-03 tablet by ity of disintegrat 00:00: mouth [place] ing tablet 00 every 4 Medica l (four) Branch hours as needed for Nausea and Vomiting (N/V). ondansetron 2022-0 Yes [id number] 4mg Take 1 Univers 4 mg 9-03 tablet by ity of disintegrat 00:00: mouth [place] ing tablet 00 every 4 Medica l (four) Branch hours as needed for Nausea and Vomiting (N/V). maalox:diph 2021- No 15mL 15 mL, Uni vers enhydrAMINE 08-31 Oral, ity of :lidocaine 22:45: 21:49 ONCE, 1 [place] 2 % viscous 00 :00 dose, On Medi waqar 1:1:1 [place] ([facility] 08/31/21 at [facility]) 1745, oral Routine suspension 15 mL dicyclomine 2021- No 20mg 20 mg, Uni vers (BENTYL) 08-31 Oral, ity of tablet 20 22:45: 21:49 ONCE, 1 [place] mg 00 :00 dose, On Medical [place] Branch 08/31/21 at 1745, Routine ondansetron 2021- No 4mg 4 mg, Slow Univers (ZOFRAN 08-31 IV Push, ity of (PF)) 21:00: 20:08 ONCE, 1 [place] injection 4 00 :00 dose, On Medi waqar mg [place] Branch 08/31/21 at 1600, LORAINE morpHINE (4 2021- No 4mg 4 mg, Slow Univers mg/mL) 08-31 IV Push, ity of injection 4 21:00: 20:09 ONCE, 1 [place] mg 00 :00 dose, On [facility] Branch 08/31/21 at 1600, STAT NaCl 0.9% 2021- No 1000mL at 999 Uni vers (NS) bolus 08-31 mL/hr, ity of infusion 21:00: 21:36 1,000 mL, [place] 1,000 mL 00 :00 IV Medical Infusion, Branch ONCE, 1 dose, On 08/31/21 at 1600, [place] iopamidol 2021- No [id number] 70mL 70 mL, Univers (ISOVUE 08-31 Intravenou ity o f 300-500 mL) 20:52: 21:00 s, ONCE, 1 [place] injection 00 :00 dose, On Medica l 70 mL [place] Branch 08/31/21 at 1600, Routine Omeprazole Yes Take by [facility] [place] ers Magnesium 08-31 mouth. ity of 20 mg 14:47: [place] capsule 32 Medical Branch albuterol 2022-0 Yes 2.5mg Inhale 2.5 U nivers (PROVENTIL) 6-26 mg every 4 it y of 2.5 mg /3 14:47: (four) [place] mL (0.083 32 hours as Medica l %) needed for Branch nebulizer Wheezing solution or Shortness of Breath. clopidogrel 2021-0 Yes 75mg Take 75 mg Univers (PLAVIX) 75 6-26 by mouth ity of mg tablet 14:47: daily. [place] [address] Medical Branch Omeprazole 0 Yes Take by [facility] [place] ers Magnesium 6-26 mouth. ity of 20 mg 14:47: [place] [address] Medical Branch albuterol 0 Yes 2.5mg Inhale 2.5 U nivers (PROVENTIL) 6-26 mg every 4 it y of 2.5 mg /3 14:47: (four) [place] mL (0.083 32 hours as Medica l %) needed for Branch nebulizer Wheezing solution or Shortness of Breath. clopidogrel 0 Yes 75mg Take 75 mg Univers (PLAVIX) 75 6-26 by mouth ity of mg tablet 14:47: daily. [address] Omeprazole 0 Yes Take by [facility] [place] ers Magnesium 6-26 mouth. ity of 20 mg 14:47: [place] [address] Medical [place] albuterol 0 Yes 2.5mg Inhale 2.5 U nivers (PROVENTIL) 6-26 mg every 4 it y of 2.5 mg /3 14:47: (four) [place] mL (0.083 32 hours as Medica l %) needed for Branch nebulizer Wheezing solution or Shortness of Breath. dicyclomine 2022-0 Yes [id number] 20mg Take 1 Univers 20 mg 6-26 tablet by ity of tablet 00:00: mouth [place] 00 every 6 Medical (six) Branch hours as needed for Abdominal pain. dicyclomine 2022-0 Yes [id number] 20mg Take 1 Univers 20 mg 6-26 tablet by ity of tablet 00:00: mouth [place] 00 every 6 Medical (six) Branch hours as needed for Abdominal pain. dicyclomine 2022-0 Yes [id number] 20mg Take 1 Univers 20 mg 6-26 tablet by ity of tablet 00:00: mouth [place] 00 every 6 Medical (six) Branch hours as needed for Abdominal pain. dicyclomine 2022-0 Yes [id number] 20mg Take 1 Univers 20 mg 6-26 tablet by ity of tablet 00:00: mouth [place] 00 every 6 Medical (six) Branch hours as needed for Abdominal pain. dicyclomine 2022-0 Yes [id number] 20mg Take 1 Univers 20 mg 6-26 tablet by ity of tablet 00:00: mouth [place] 00 every 6 Medical (six) Branch hours as needed for Abdominal pain. dicyclomine 2022-0 Yes [id number] 20mg Take 1 Univers 20 mg 6-26 tablet by ity of tablet 00:00: mouth [place] 00 every 6 Medical (six) Branch hours as needed for Abdominal pain. dicyclomine 2022-0 Yes [id number] 20mg Take 1 Univers 20 mg 6-26 tablet by ity of tablet 00:00: mouth [place] 00 every 6 Medical (six) Branch hours as needed for Abdominal pain. dicyclomine 2022-0 Yes [id number] 20mg Take 1 Univers 20 mg 6-26 tablet by ity of tablet 00:00: mouth [place] 00 every 6 Medical (six) Branch hours as needed for Abdominal pain. predniSONE 2020-0 Yes 20mg Take 20 mg U nivers (DELTASONE) 7-15 by mouth ity of 20 mg 17:52: daily. [place] tablet 45 Medical Branch levofloxaci 2020-0 Yes 500mg Take 500 U nivers n 7-15 mg by ity of (LEVAQUIN) 17:52: mouth [place] 750 mg 45 every 24 Medical tablet (twenty-fo Branch ur) hours. METOPROLOL 2020-0 Yes 25mg Take 25 mg U nivers TARTRATE 7-15 by mouth 2 ity o f ORAL 17:52: (two) [place] 45 times Medical daily. Branch Omeprazole 2020-0 Yes Take by [facility] [place] ers Magnesium 7-15 mouth. ity of 20 mg 17:52: [place] capsule 45 Medical Branch ipratropium 2020-0 Yes .5mg Inhale 0.5 Univers (ATROVENT) 7-15 mg. ity of 0.02 % 17:52: [place] nebulizer 45 Medical solution Branch albuterol 2020-0 Yes 2.5mg Inhale 2.5 U nivers (PROVENTIL) 7-15 mg every 4 it y of 2.5 mg /3 17:52: (four) [place] mL (0.083 45 hours as Medica l %) needed for Branch nebulizer Wheezing solution or Shortness of Breath. budesonide- 2020-0 Yes 2{puff} Inhale 2 Univers formoterol 7-15 Puffs 2 ity of (SYMBICORT) 17:52: (two) [place] 160-4.5 45 times Medical mcg/actuati daily. Branch on inhaler clopidogrel 2020-0 Yes 75mg Take 75 mg Univers (PLAVIX) 75 7-15 by mouth ity of mg tablet 17:52: daily. [place] [address] Medical Branch predniSONE 2020-0 Yes 20mg Take 20 mg U nivers (DELTASONE) 7-15 by mouth ity of 20 mg 17:52: daily. [facility] 45 Medical Branch levofloxaci 2020-0 Yes 500mg Take 500 U nivers n 7-15 mg by ity of (LEVAQUIN) 17:52: mouth [place] 750 mg 45 every 24 Medical tablet (twenty-fo Branch ur) hours. METOPROLOL 2020-0 Yes 25mg Take 25 mg U nivers TARTRATE 7-15 by mouth 2 ity o f ORAL 17:52: (two) [place] 45 times Medical daily. Branch Omeprazole 2020-0 Yes Take by Univ ers Magnesium 7-15 mouth. ity of 20 mg 17:52: [place] [address] Medical Branch ipratropium 2020-0 Yes .5mg Inhale 0.5 Univers (ATROVENT) 7-15 mg. ity of 0.02 % 17:52: [place] nebulizer 45 Medical solution Branch albuterol 2020-0 Yes 2.5mg Inhale 2.5 U nivers (PROVENTIL) 7-15 mg every 4 it y of 2.5 mg /3 17:52: (four) [place] mL (0.083 45 hours as Medica l %) needed for Branch nebulizer Wheezing solution or Shortness of Breath. budesonide- 2020-0 Yes 2{puff} Inhale 2 Univers formoterol 7-15 Puffs 2 ity of (SYMBICORT) 17:52: (two) [place] 160-4.5 45 times Medical mcg/actuati daily. Branch on inhaler clopidogrel 2020-0 Yes 75mg Take 75 mg Univers (PLAVIX) 75 7-15 by mouth ity of mg tablet 17:52: daily. [address] water for 2020-0 Yes PRN, Univers irrigation 7-15 Starting ity o f irrigation 17:05: [facility] solution 09/20/[address] [facility] al [address], [place] Until Discontinu ed, Routine, Intra-op sodium 2020-0 Yes PRN, Univers chloride 7-15 Starting ity of (NS) 17:05: Wed [place] injection 09/20/19 at [facility] 1205, [place] Until Discontinu ed, Routine, Intra-op neomycin-po 2020-0 Yes PRN, Univer s lymyxin-dex 7-15 Starting ity of amethasone 17:04: Wed [place] (MAXITROL) 09/20/19 at [facility] ical 3.5 1204, [place] mg/g-10,000 Until unit/g-0.1 Discontinu % ed, ophthalmic Routine, ointment Intra-op methylene 2020-0 Yes PRN, Univers blue 1 % 7-15 Starting ity of (10 mg/mL) 17:03: Wed [place] injection 09/20/19 at [facility] 1203, [place] Until Discontinu ed, Routine, Intra-op Hyaluronida 2020-0 Yes PRN, Univer s se, Human 7-15 Starting ity of Recomb. 17:03: Wed [place] (HYLENEX) 09/20/19 at [facility] injection 1203, [place] Until Discontinu ed, Routine, Intra-op gentamicin 2020-0 Yes PRN, Univers injection 7-15 Starting ity of 17:03: Wed [place] 09/20/19 at [facility] 1203, [place] Until Discontinu ed, LORAINE, Intra-op eye block 2020-0 Yes PRN, Univers syringe 11 7-15 Starting ity o f mL 17:02: Wed [place] 09/20/19 at [facility] 1202, [place] Until Discontinu ed, Intra-op EPINEPHrine 2020-0 Yes PRN, Univer s 1:1,000 (1 7-15 Starting ity o f mg/mL) 17:02: Wed [place] (ADRENALIN) 09/20/19 at [place] [facility] injection 1202, [place] Until Discontinu ed, Routine, Intra-op DUOVISC 2020-0 Yes PRN, Univers (DUOVISC 7-15 Starting ity of VISCO 17:02: [facility] ELASTIC) 3 09/20/19 at [facility] ical %-4 %(0.5 1202, Branch mL) 1 % Until (0.55 mL) Discontinu intraocular ed, injection Routine, Intra-op dexamethaso 2020-0 Yes PRN, Univer s ne 09-19 Starting ity of (DECADRON 17:02: Wed [place] PHOSPHATE) 00 09/20/19 at [facility] ical injection 1202, Branch Until Discontinu ed, Routine, Intra-op ceFAZolin 2020-0 Yes PRN, Univers (ANCEF) 09-19 Starting ity of injection 17:01: Wed [place] 09/20/19 at Medical 1201, Branch Until Discontinu ed, LORAINE, Intra-op carbachoL 2020-0 Yes PRN, Univers (MIOSTAT) 09-19 Starting ity of 0.01 % 17:01: Wed [place] intraocular 00 09/20/19 at [place] dical injection 1201, Branch Until Discontinu ed, Routine, Intra-op balanced 2020-0 Yes PRN, Univers salt irrig 09-19 Starting ity o f soln comb1 17:00: Wed [place] (BSS PLUS) 09/20/19 at [facility] ica ophthalmic 1200, Branch solution Until 500 mL bag Discontinu ed, Routine, Intra-op propofol IV 2020-0 2020- No ONCE INTRA Univers infusion 09-19 PROCEDURE, ity of 16:50: 17:22 Starting [place] 00 :11 [facility] 09/20/19 at Branch 1150, Until Wed09/20/19 at 1222, Routine, Intra-op remifentani 2020-0 2020- No ONCE INTRA Univers l (ULTIVA) 09-19 PROCEDURE, it y of injection 16:46: 17:22 Starting [place] 00 :11 [facility] 09/20/19 at Branch 1146, Until Wed09/20/19 at 1222, Routine, Intra-op lactated 2020-0 2020- No CONTINUOUS Un sarahy ringers IV 09-19 PRN, ity of infusion 16:44: 17:22 Starting [place] 00 :11 [facility] 09/20/19 at Branch 1144, Until Wed09/20/19 at 1222, Routine, Intra-op mydriatic 2020-0 2020- No .5mL 0.5 mL, Univ ers #5 7-15 07-15 Left Eye, ity of ophthalmic 14:30: 14:26 ONCE, 1 [place] solution 00 :00 dose, Wed Medica l 0.5 mL 09/20/19 at Branch syringe 0930, Routine lactated 2020-0 2020- No 1000mL at 20 Unive rs ringers IV 7-15 07-15 mL/hr, ity of infusion 14:30: 14:26 1,000 mL, Zac as 1,000 mL 00 :00 IV Medical Infusion, Branch ONCE, 1 dose, 09/20/19 at 0930, Routine, DSU Pre-op predniSONE 2020-0 Yes 20mg Take 20 mg U nivers (DELTASONE) 7-15 by mouth ity of 20 mg 12:52: daily. [place] tablet 45 Medical Branch levofloxaci 2020-0 Yes 500mg Take 500 U nivers n 7-15 mg by ity of (LEVAQUIN) 12:52: mouth [place] 750 mg 45 every 24 Medical tablet (twenty-fo Branch ur) hours. METOPROLOL 2020-0 Yes 25mg Take 25 mg U nivers TARTRATE 7-15 by mouth 2 ity o f ORAL 12:52: (two) [place] 45 times Medical daily. Branch ipratropium 2020-0 Yes .5mg Inhale 0.5 Univers (ATROVENT) 7-15 mg. ity of 0.02 % 12:52: [place] nebulizer 45 Medical solution Branch budesonide- 2020-0 Yes 2{puff} Inhale 2 Univers formoterol 7-15 Puffs 2 ity of (SYMBICORT) 12:52: (two) [place] 160-4.5 45 times Medical mcg/actuati daily. Branch on inhaler predniSONE 2020-0 Yes 20mg Take 20 mg U nivers (DELTASONE) 7-15 by mouth ity of 20 mg 12:52: daily. [place] tablet 45 Medical Branch levofloxaci 2020-0 Yes 500mg Take 500 U nivers n 7-15 mg by ity of (LEVAQUIN) 12:52: mouth [place] 750 mg 45 every 24 Medical tablet (twenty-fo Branch ur) hours. METOPROLOL 2020-0 Yes 25mg Take 25 mg U nivers TARTRATE 7-15 by mouth 2 ity o f ORAL 12:52: (two) [place] 45 times Medical daily. Branch ipratropium 2020-0 Yes .5mg Inhale 0.5 Univers (ATROVENT) 7-15 mg. ity of 0.02 % 12:52: [place] nebulizer 45 Medical solution Branch budesonide- 2020-0 Yes 2{puff} Inhale 2 Univers formoterol 7-15 Puffs 2 ity of (SYMBICORT) 12:52: (two) [place] 160-4.5 45 times Medical mcg/actuati daily. Branch on inhaler predniSONE 2020-0 Yes 20mg Take 20 mg U nivers (DELTASONE) 7-15 by mouth ity of 20 mg 12:52: daily. [place] tablet 45 Medical Branch levofloxaci 2020-0 Yes 500mg Take 500 U nivers n 7-15 mg by ity of (LEVAQUIN) 12:52: mouth [place] 750 mg 45 every 24 Medical tablet (twenty-fo Branch ur) hours. METOPROLOL 2020-0 Yes 25mg Take 25 mg U nivers TARTRATE 7-15 by mouth 2 ity o f ORAL 12:52: (two) [place] 45 times Medical daily. Branch ipratropium 2020-0 Yes .5mg Inhale 0.5 Univers (ATROVENT) 7-15 mg. ity of 0.02 % 12:52: [place] nebulizer 45 Medical solution Branch budesonide- 2020-0 Yes 2{puff} Inhale 2 Univers formoterol 7-15 Puffs 2 ity of (SYMBICORT) 12:52: (two) [place] 160-4.5 45 times Medical mcg/actuati daily. Branch on inhaler levofloxaci 2020-0 Yes 500mg Take 500 U nivers n 7-13 mg by ity of (LEVAQUIN) 17:38: mouth [place] 750 mg 42 every 24 Medical tablet (twenty-fo Branch ur) hours. METOPROLOL 2020-0 Yes 25mg Take 25 mg U nivers TARTRATE 7-13 by mouth 2 ity o f ORAL 17:38: (two) [place] 42 times Medical daily. Branch Omeprazole 2020-0 Yes Take by [facility] [place] ers Magnesium 7-13 mouth. ity of 20 mg 17:38: [place] capsule 42 Medical Branch ipratropium 2020-0 Yes .5mg Inhale 0.5 Univers (ATROVENT) 7-13 mg. ity of 0.02 % 17:38: [place] nebulizer 42 Medical solution Branch albuterol 2020-0 Yes 2.5mg Inhale 2.5 U nivers (PROVENTIL) 7-13 mg every 4 it y of 2.5 mg /3 17:38: (four) [place] mL (0.083 42 hours as Medica l %) needed for Branch nebulizer Wheezing solution or Shortness of Breath. budesonide- 2020-0 Yes 2{puff} Inhale 2 Univers formoterol 7-13 Puffs 2 ity of (SYMBICORT) 17:38: (two) [place] 160-4.5 42 times Medical mcg/actuati daily. Branch on inhaler clopidogrel 2020-0 Yes 75mg Take 75 mg Univers (PLAVIX) 75 7-13 by mouth ity of mg tablet 17:38: daily. [place] [address] Medical Branch predniSONE 2020-0 Yes 20mg Take 20 mg U nivers (DELTASONE) 7-13 by mouth ity of 20 mg 17:38: daily. [place] tablet 42 Medical Branch levofloxaci 2020-0 Yes 500mg Take 500 U nivers n 7-13 mg by ity of (LEVAQUIN) 17:38: mouth [place] 750 mg 42 every 24 Medical tablet (twenty-fo Branch ur) hours. METOPROLOL 2020-0 Yes 25mg Take 25 mg U nivers TARTRATE 7-13 by mouth 2 ity o f ORAL 17:38: (two) [place] 42 times Medical daily. Branch Omeprazole 2020-0 Yes Take by [facility] [place] ers Magnesium 7-13 mouth. ity of 20 mg 17:38: [place] capsule 42 Medical Branch ipratropium 2020-0 Yes .5mg Inhale 0.5 Univers (ATROVENT) 7-13 mg. ity of 0.02 % 17:38: [place] nebulizer 42 Medical solution Branch albuterol 2020-0 Yes 2.5mg Inhale 2.5 U nivers (PROVENTIL) 7-13 mg every 4 it y of 2.5 mg /3 17:38: (four) [place] mL (0.083 42 hours as Medica l %) needed for Branch nebulizer Wheezing solution or Shortness of Breath. budesonide- 2020-0 Yes 2{puff} Inhale 2 Univers formoterol 7-13 Puffs 2 ity of (SYMBICORT) 17:38: (two) [place] 160-4.5 42 times Medical mcg/actuati daily. Branch on inhaler clopidogrel 2020-0 Yes 75mg Take 75 mg Univers (PLAVIX) 75 7-13 by mouth ity of mg tablet 17:38: daily. [address] Branch predniSONE 2020-0 Yes 20mg Take 20 mg U nivers (DELTASONE) 7-13 by mouth ity of 20 mg 17:38: daily. [place] tablet 42 Medical Branch predniSONE 2020-0 Yes 20mg Take 20 mg U nivers (DELTASONE) 7- by mouth ity of 20 mg 15:58: daily. [place] tablet 06 Medical Branch levofloxaci 2020-0 Yes 500mg Take 500 U nivers n 7- mg by ity of (LEVAQUIN) 15:58: mouth [place] 750 mg 06 every 24 Medical tablet (twenty-fo Branch ur) hours. METOPROLOL 2020-0 Yes 25mg Take 25 mg U nivers TARTRATE 09-05 by mouth 2 ity o f ORAL 15:58: (two) [place] 06 times Medical daily. Branch Omeprazole 2020-0 Yes Take by [facility] [place] ers Magnesium 7- mouth. ity of 20 mg 15:58: [place] capsule Medical Branch ipratropium 2020-0 Yes .5mg Inhale 0.5 Univers (ATROVENT) 7- mg. ity of 0.02 % 15:58: [place] nebulizer Medical solution Branch albuterol 2020-0 Yes 2.5mg Inhale 2.5 U nivers (PROVENTIL) 7- mg every 4 it y of 2.5 mg /3 15:58: (four) [place] mL (0.083 06 hours as Medica l %) needed for Branch nebulizer Wheezing solution or Shortness of Breath. budesonide- 2020-0 Yes 2{puff} Inhale 2 Univers formoterol 7-01 Puffs 2 ity of (SYMBICORT) 15:58: (two) [place] 160-4.5 06 times Medical mcg/actuati daily. Branch on inhaler clopidogrel 2020-0 Yes 75mg Take 75 mg Univers (PLAVIX) 75 7- by mouth ity of mg tablet 15:58: daily. [place] [address] Medical Branch lactated 2020-0 Yes 1000mL at 75 Univer s ringers IV 7-01 mL/hr, ity of infusion 15:45: 1,000 mL, [place] 1,000 mL 00 IV Medical Infusion, Branch CONTINUOUS , Starting Wed09/06/19 at 1045, Until Discontinu ed, Routine, PACU water for 2020-0 Yes PRN, Univers irrigation 09-05 Starting ity o f irrigation 14:55: Wed09/06/19 [place] solution 00 at 0955, Medical Until Branch Discontinu ed, Routine, Intra-op sodium 2020-0 Yes PRN, Univers chloride 09-05 Starting ity of (NS) 14:55: Wed09/06/19 [place] injection 00 at 0955, Medica l Until Branch Discontinu ed, Routine, Intra-op neomycin-po 2020-0 Yes PRN, Univer s lymyxin-dex 09-05 Starting ity of amethasone 14:55: Wed09/06/19 [place] (MAXITROL) 00 at 0955, Medic al 3.5 Until Branch mg/g-10,000 Discontinu unit/g-0.1 ed, % Routine, ophthalmic Intra-op ointment Hyaluronida 2020-0 Yes PRN, Univer s se, Human 09-05 Starting ity of Recomb. 14:55: Wed09/06/19 [place] (HYLENEX) 00 at 0955, Medica l injection Until Branch Discontinu ed, Routine, Intra-op gentamicin 2020-0 Yes PRN, Univers injection 09-05 Starting ity of 14:54: Wed09/06/19 [place] 00 at 0954, Medical Until Branch Discontinu ed, LORAINE, Intra-op EPINEPHrine 2020-0 Yes PRN, Univer s 1:1,000 (1 09-05 Starting ity o f mg/mL) 14:54: Wed09/06/19 [place] (ADRENALIN) 00 at 0954, Medi waqar injection Until Branch Discontinu ed, Routine, Intra-op DUOVISC 2020-0 Yes PRN, Univers (DUOVISC 09-05 Starting ity of VISCO 14:53: Wed09/06/19 [place] ELASTIC) 3 00 at 0953, Medic al %-4 %(0.5 Until Branch mL) 1 % Discontinu (0.55 mL) ed, intraocular Routine, injection Intra-op dexamethaso 2020-0 Yes PRN, Univer s ne 09-05 Starting ity of (DECADRON 14:53: 7/1/20 [place] PHOSPHATE) 00 at 0953, Medic al injection Until Branch Discontinu ed, Routine, Intra-op ceFAZolin 2020-0 Yes PRN, Univers (ANCEF) 09-05 Starting ity of injection 14:53: 09/06/19 [place] 00 at 0953, Medical Until Branch Discontinu ed, LORAINE, Intra-op carbachoL 2020-0 Yes PRN, Univers (MIOSTAT) 09-05 Starting ity of 0.01 % 14:50: Wed09/06/19 [place] intraocular 00 at 0950, Medi waqar injection Until Branch Discontinu ed, Routine, Intra-op balanced 2020-0 Yes PRN, Univers salt irrig 09-05 Starting ity o f soln comb1 14:50: 09/06/19 [place] (BSS PLUS) 00 at 0950, Medic al ophthalmic Until [place] solution Discontinu 500 mL bag ed, Routine, Intra-op trypan blue 2020-0 Yes PRN, Univer s (VISION 09-05 Starting ity of BLUE) 0.06 14:50: 09/06/19 [place] % syringe 00 at 0950, Medica l Until [place] Discontinu ed, Routine, Intra-op eye block 2020-0 Yes PRN, Univers syringe 11 09-05 Starting ity o f mL 14:34: 09/06/19 [place] 00 at 0934, Medical Until [place] Discontinu ed, Intra-op mydriatic 2020-0 2020- No .5mL 0.5 mL, [facility] [place] ers #5 09-05 Right Eye, ity of ophthalmic 12:30: 12:47 ONCE, 1 [place] as solution 00 :00 dose, [facility] Medica l 0.5 mL 09/06/19 at [place] syringe 0730, Routine lactated 2020-0 2020- No 1000mL at 20 [facility] [place] [facility] rs ringers IV 09-05 07 mL/hr, ity of infusion 12:30: 12:39 1,000 mL, [place] as 1,000 mL 00 :00 IV Medical Infusion, [place] ONCE, 1 dose, 09/06/19 at 0730, Routine, DSU Pre-op predniSONE 2020-0 Yes 20mg Take 20 mg U nivers (DELTASONE) 6-29 by mouth ity of 20 mg 16:52: daily. [place] tablet 26 [facility] predniSONE 2020-0 Yes 20mg Take 20 mg U nivers (DELTASONE) 6-29 by mouth ity of 20 mg 16:52: daily. [place] tablet 26 Medical Branch levofloxaci 2020-0 Yes 500mg Take 500 U nivers n 6-29 mg by ity of (LEVAQUIN) 16:52: mouth [place] 750 mg 06 every 24 Medical tablet (twenty-fo Branch ur) hours. METOPROLOL 2020-0 Yes 25mg Take 25 mg U nivers TARTRATE 6-29 by mouth 2 ity o f ORAL 16:52: (two) [place] 06 times Medical daily. Branch Omeprazole 2020-0 Yes Take by [facility] [place] ers Magnesium 6-29 mouth. ity of 20 mg 16:52: [place] capsule 06 Medical Branch albuterol 2020-0 Yes 2.5mg Inhale 2.5 U nivers (PROVENTIL) 6-29 mg every 4 it y of 2.5 mg /3 16:52: (four) [place] mL (0.083 06 hours as Medica l %) needed for Branch nebulizer Wheezing solution or Shortness of Breath. budesonide- 2020-0 Yes 2{puff} Inhale 2 Univers formoterol 6-29 Puffs 2 ity of (SYMBICORT) 16:52: (two) [place] 160-4.5 06 times Medical mcg/actuati daily. Branch on inhaler clopidogrel 2020-0 Yes 75mg Take 75 mg Univers (PLAVIX) 75 6-29 by mouth ity of mg tablet 16:52: daily. [place] 06 Medical Branch levofloxaci 2020-0 Yes 500mg Take 500 U nivers n 6-29 mg by ity of (LEVAQUIN) 16:52: mouth [place] 750 mg 06 every 24 Medical tablet (twenty-fo Branch ur) hours. METOPROLOL 2020-0 Yes 25mg Take 25 mg U nivers TARTRATE 6-29 by mouth 2 ity o f ORAL 16:52: (two) [place] 06 times Medical daily. Branch Omeprazole 2020-0 Yes Take by [facility] [place] ers Magnesium 6-29 mouth. ity of 20 mg 16:52: [place] capsule 06 Medical Branch albuterol 2020-0 Yes 2.5mg Inhale 2.5 U nivers (PROVENTIL) 6-29 mg every 4 it y of 2.5 mg /3 16:52: (four) [place] mL (0.083 06 hours as Medica l %) needed for Branch nebulizer Wheezing solution or Shortness of Breath. budesonide- 2019- Yes 2{puff} Inhale 2 Univers formoterol 6-29 Puffs 2 ity of (SYMBICORT) 16:52: (two) [place] 160-4.5 06 times Medical mcg/actuati daily. Branch on inhaler clopidogrel Yes 75mg Take 75 mg Univers (PLAVIX) 75 6-29 by mouth ity of mg tablet 16:52: daily. [place] 06 Medical Branch metoprolol 2017-03 Yes 25 mg = 1 Me moria tartrate 25 0-25 tab, PO, l mg oral 15:38: BID, # 60 [place] nn tablet 00 tab, 1 Refill(s) metoprolol 2017-03 Yes 25 mg = 1 Me moria tartrate 25 0-25 tab, PO, l mg oral 15:38: BID, # 60 [place] nn tablet 00 tab, 1 Refill(s) heparin 2017-03 No Notes: Memoria 0-25 porcine l 05:00: heparin [place]vir heparin 2017-03 No Notes: Memoria 0-25 porcine l 05:00: heparin [place] 00 Calcium 2017-03 No 1,000 mL, Memor ia Chloride 0-24 1,000 l 0.0014 21:42: ml/hr, Tavnir MEQ/ML / 00 Infuse Potassium Over: 1 Chloride hr, Route: 0.004 IV, 1,000, MEQ/ML / Drug form: Sodium INJ, ONCE, Chloride Priority: 0.103 STAT, MEQ/ML / Dosing Sodium Weight Lactate 69.659 kg, 0.028 Start MEQ/ML date: Injectable 12/29/17 Solution 16:42:00 CDT, Stop date: 12/29/17 16:42:00 CDT Calcium 2017-03 No 1,000 mL, Memor ia Chloride 0-24 1,000 l 0.0014 21:42: ml/hr, [place] MEQ/ML / 00 Infuse Potassium Over: 1 Chloride hr, Route: 0.004 IV, 1,000, MEQ/ML / Drug form: Sodium INJ, ONCE, Chloride Priority: 0.103 STAT, MEQ/ML / Dosing Sodium Weight Lactate 69.659 kg, 0.028 Start MEQ/ML date: Injectable 12/29/17 Solution 16:42:00 CDT, Stop date: 12/29/17 16:42:00 CDT Docusate 2017-03 No Notes: Memoria 0-24 (Same as: l 14:00: Colace) [place] (Do Not Crush) Eliquis 2017-03 No Notes: Memoria 0-24 Same as: l 14:00: Eliquis [place] 00 pantoprazol 2017-03 No Notes: [place] to e 0-24 Tablet l 14:00: should not Tanvir 00 be chewed or crushed. (Same as: Protonix) Losartan 2017-03 No Notes: Memoria 0-24 (Same as: l 14:00: Cozaar) [place] Hydrochloro 2017-03 No Notes: [place] to thiazide 0-24 (Same as: l 14:00: Hydrodiuri Tanvir l) With food. Plavix 2017-03 No Notes: Memoria 0-24 (Same As: l 14:00: Plavix) [place] 00 Buspirone 2017-03 No Notes: Memori a 0-24 (Same As: l 14:00: BuSpar) [place] Aspirin 2017-03 No Notes: Do Memor ia 0-24 not crush l 14:00: or chew. Tanvir 00 (Same As: Ecotrin) atorvastati 2017-03 No Notes: [place] to n 0-24 (Same as: l 14:00: Lipitor) [place] 00 metoprolol 2017-03 No Notes: Memor ia tartrate 0-24 (Same as: l 14:00: Lopressor) [place] Docusate 2017-03 No Notes: Memoria 0-24 (Same as: l 14:00: Colace) [place] (Do Not Crush) Eliquis 2017-03 No Notes: Memoria 0-24 Same as: l 14:00: Eliquis [place] pantoprazol 2017-03 No Notes: [place] to e 0-24 Tablet l 14:00: should not Tanvir 00 be chewed or crushed. (Same as: Protonix) Losartan 2017-03 No Notes: Memoria 0-24 (Same as: l 14:00: Cozaar) [place] 00 Hydrochloro 2017-03 No Notes: [place] to thiazide 0-24 (Same as: l 14:00: Hydrodiuri [place] 00 l) With food. Plavix 2017-03 No Notes: Memoria 0-24 (Same As: l 14:00: Plavix) Buspirone 2017-03 No Notes: Memori a 0-24 (Same As: l 14:00: BuSpar) Aspirin 2017-03 No Notes: Do Memor ia 0-24 not crush l 14:00: or chew. (Same As: Ecotrin) atorvastati 2017-03 No Notes: [place] to n 0-24 (Same as: l 14:00: Lipitor) metoprolol 2017-03 No Notes: Memor ia tartrate 0-24 (Same as: l 14:00: Lopressor) Hydrochloro 2017-03 No 1 tab, PO, Memoria thiazide 25 0-24 Daily l MG / 02:24: Potassium 100 MG Oral Tablet Hydrochloro 2017-03 No 1 tab, PO, Memoria thiazide 25 0-24 Daily l MG / 02:24: Potassium 100 MG Oral Tablet atorvastati 2017-03 Yes 80 mg = 1 M emoria n 80 mg 0-24 tab, PO, l oral tablet 02:20: Bedtime Her [facility] atorvastati 2017-03 Yes 80 mg = 1 M emoria n 80 mg 0-24 tab, PO, l oral tablet 02:20: Bedtime Her [facility] Aspirin 2017-03 Yes 81 mg, PO, [place] to 0-23 Daily, 0 l 23:17: Refill(s) busPIRone 2017-03 Yes 15 mg = 1 Mem oria 15 mg oral 0-23 tab, PO, l tablet 23:17: BID, 0 Refill(s) atorvastati 2017-03 No 40 mg = 1 M emoria n 40 mg 0-23 tab, PO, l oral tablet 23:17: Daily, 0 He Refill(s) Hydrochloro 2017-03 No 25 mg, PO, Memoria thiazide 0-23 Daily, 0 l 23:17: Refill(s) losartan 2017-03 No 100 mg = 1 Mem oria 100 mg oral 0-23 tab, PO, l tablet 23:17: Daily, 0 Refill(s) clopidogrel 2017-03 Yes 75 mg = 1 M emoria 75 MG Oral 0-23 tab, PO, l Tablet 23:17: Daily, 0 [place] [Plavix] 00 Refill(s) pantoprazol 2017-03 Yes 40 mg = 1 M emoria e 40 mg 0-23 tab, PO, l oral 23:17: Daily, 0 [place] enteric 00 Refill(s) coated tablet Aspirin 2017-03 Yes 81 mg, PO, [place] to 0-23 Daily, 0 l 23:17: Refill(s) [place] 00 busPIRone 2017-03 Yes 15 mg = 1 Mem oria 15 mg oral 0-23 tab, PO, l tablet 23:17: BID, 0 [place] 00 Refill(s) atorvastati 2017-03 No 40 mg = 1 M emoria n 40 mg 0-23 tab, PO, l oral tablet 23:17: Daily, 0 [place] rmann Refill(s) Hydrochloro 2017-03 No 25 mg, PO, Memoria thiazide 0-23 Daily, 0 l 23:17: Refill(s) [place]vir 00 losartan 2017-03 No 100 mg = 1 Mem oria 100 mg oral 0-23 tab, PO, l tablet 23:17: Daily, 0 [place] Refill(s) clopidogrel 2017-03 Yes 75 mg = 1 M emoria 75 MG Oral 0-23 tab, PO, l Tablet 23:17: Daily, 0 [place] [Plavix] 00 Refill(s) pantoprazol 2017-03 Yes 40 mg = 1 M emoria e 40 mg 0-23 tab, PO, l oral 23:17: Daily, 0 [place]vir enteric 00 Refill(s) coated tablet normal 2017-03 No 1,000 mL, Memori a saline 0.9% 0-23 Rate: 100 l IV 1,000 mL 23:15: ml/hr, Herm radha Infuse over: 10 hr, Route: IV, Dosing Weight 68.182 kg, Total Volume: 1,000, Priority: STAT, Start date: 12/28/17 18:15:00 CDT, Duration: 1 doses or times, Stop date: 12/29/17 4:14:00 CDT, 1.83, m2 normal 2018-1 No 1,000 mL, Memori a saline 0.9% 0- Rate: 100 l IV 1,000 mL 23:15: ml/hr, Herm Infuse over: 10 hr, Route: IV, Dosing Weight 68.182 kg, Total Volume: 1,000, Priority: STAT, Start date: 12/28/17 18:15:00 CDT, Duration: 1 doses or times, Stop date: 12/29/17 4:14:00 CDT, 1.83, m2 iodixanol 2017- No 100 mL, Memor ia 0- Route: l 20:44: IVP, Drug Tanvir 00 Form: SOLN, Dosing Weight 68.182, kg, ONCALL, STAT, Start date: 12/28/17 15:44:00 CDT, Duration: 1 doses or times, Dose = 2.2ml/kg, Max dose = 100ml -- "To be infused by Radiology Staff ONLY" iodixanol 2017- No 100 mL, Memor ia 0- Route: l 20:44: IVP, Drug Form: SOLN, Dosing Weight 68.182, kg, ONCALL, STAT, Start date: 12/28/17 15:44:00 CDT, Duration: 1 doses or times, Dose = 2.2ml/kg, Max dose = 100ml -- "To be infused by Radiology Staff ONLY" Morphine 2017- No 4 mg, Memoria 0- Route: l 18:44: IVP, ONCE, Dosing Weight 68.182, kg, Priority: STAT, Start date: 12/28/17 13:44:00 CDT, Stop date: 12/28/17 13:44:00 CDT Isolyte S 2017- No 500 mL, Memor ia PH-7.4 0 Route: IV, l (Bolus) IV 18:44: ONCE, Eric n Dosing Weight 68.182 kg, Start date: 12/28/17 13:44:00 CDT, Stop date: 12/28/17 13:44:00 CDT Morphine 2017- No 4 mg, Memoria 0 Route: l 18:44: IVP, ONCE, Dosing Weight 68.182, kg, Priority: STAT, Start date: 12/28/17 13:44:00 CDT, Stop date: 12/28/17 13:44:00 CDT Isolyte S 2017-03 No 500 mL, Memor ia PH-7.4 0-23 Route: IV, l (Bolus) IV 18:44: ONCE, Eric n 00 Dosing Weight 68.182 kg, Start date: 12/28/17 13:44:00 CDT, Stop date: 12/28/17 13:44:00 CDT Metoclopram 2017-03 No 10 mg, [place] to [facility] 0-23 Route: l 18:38: IVP, Drug [place] 00 form: INJ, ONCE, Dosing Weight 68.182, kg, Priority: STAT, Start date: 12/28/17 13:38:00 CDT, Stop date: 12/28/17 13:38:00 CDT Metoclopram 2017-03 No 10 mg, [place] to [facility] 0-23 Route: l 18:38: IVP, Drug [place] 00 form: INJ, ONCE, Dosing Weight 68.182, kg, Priority: STAT, Start date: 12/28/17 13:38:00 CDT, Stop date: 12/28/17 13:38:00 CDT Saline 2017-03 No Notes: Memoria Flush 0.9% 0-23 (Same as: l 18:09: BD Tanvir Posiflush) Saline 2017-03 No Notes: Memoria Flush 0.9% 0-23 (Same as: l 18:09: BD [place] Posiflush) Saline 2017-03 No Notes: Memoria Flush 0.9% 0-23 (Same as: l 18:06: BD [place] Posiflush) Saline 2017-03 No Notes: Memoria Flush 0.9% 0-23 (Same as: l 18:06: BD [place] Posiflush) ondansetron 2016-0 Yes 4mg Take 1 Univ ers (ZOFRAN, 6-30 tablet by ity of HYDROCHLORI 00:00: mouth [place],) 4 mg 00 every 8 Medical tablet (eight) Branch hours as needed for Nausea and Vomiting (N/V). cyclobenzap 2016-0 Yes 5mg Take 1 Univ ers rine 6-30 tablet by ity of (FLEXERIL) 00:00: mouth 3 [place] 5 mg tablet 00 (three) Medic al times Branch daily. ondansetron 2016-0 Yes 4mg Take 1 Univ ers (ZOFRAN, 6-30 tablet by ity of HYDROCHLORI 00:00: mouth [place],) 4 mg 00 every 8 Medical tablet (eight) Branch hours as needed for Nausea and Vomiting (N/V). cyclobenzap 2016-0 Yes 5mg Take 1 Univ ers rine 6-30 tablet by ity of (FLEXERIL) 00:00: mouth 3 [place] 5 mg tablet 00 (three) Medic al times Branch daily. ondansetron 2016-0 Yes 4mg Take 1 Univ ers (ZOFRAN, 6-30 tablet by ity of HYDROCHLORI 00:00: mouth [place],) 4 mg 00 every 8 Medical tablet (eight) Branch hours as needed for Nausea and Vomiting (N/V). cyclobenzap 2016-0 Yes 5mg Take 1 Univ ers rine 6-30 tablet by ity of (FLEXERIL) 00:00: mouth 3 [place] 5 mg tablet 00 (three) Medic al times Branch daily. ondansetron 2016-0 Yes 4mg Take 1 Univ ers (ZOFRAN, 6-30 tablet by ity of HYDROCHLORI 00:00: mouth [place],) 4 mg 00 every 8 Medical tablet (eight) Branch hours as needed for Nausea and Vomiting (N/V). cyclobenzap 2016-0 Yes 5mg Take 1 Univ ers rine 6-30 tablet by ity of (FLEXERIL) 00:00: mouth 3 [place] 5 mg tablet 00 (three) Medic al times Branch daily. ondansetron 2016-0 Yes 4mg Take 1 Univ ers (ZOFRAN, 6-30 tablet by ity of HYDROCHLORI 00:00: mouth [place],) 4 mg 00 every 8 Medical tablet (eight) Branch hours as needed for Nausea and Vomiting (N/V). cyclobenzap 2016-0 Yes 5mg Take 1 Univ ers rine 6-30 tablet by ity of (FLEXERIL) 00:00: mouth 3 [place] 5 mg tablet 00 (three) Medic al times Branch daily. ondansetron 2016-0 Yes 4mg Take 1 Univ ers (ZOFRAN, 6-30 tablet by ity of HYDROCHLORI 00:00: mouth [place],) 4 mg 00 every 8 Medical tablet (eight) Branch hours as needed for Nausea and Vomiting (N/V). cyclobenzap 2016-0 Yes 5mg Take 1 Univ ers rine 6-30 tablet by ity of (FLEXERIL) 00:00: mouth 3 [place] 5 mg tablet 00 (three) Medic al times Branch daily. ondansetron 2016-0 Yes 4mg Take 1 Univ ers (ZOFRAN, 6-30 tablet by ity of HYDROCHLORI 00:00: mouth [place],) 4 mg 00 every 8 Medical tablet (eight) Branch hours as needed for Nausea and Vomiting (N/V). cyclobenzap 2016-0 Yes 5mg Take 1 Univ ers rine 6-30 tablet by ity of (FLEXERIL) 00:00: mouth 3 [place] 5 mg tablet 00 (three) Medic al times Branch daily. ondansetron 2016-0 Yes 4mg Take 1 Univ ers (ZOFRAN, 6-30 tablet by ity of HYDROCHLORI 00:00: mouth [place],) 4 mg 00 every 8 Medical tablet (eight) Branch hours as needed for Nausea and Vomiting (N/V). cyclobenzap 2016-0 Yes 5mg Take 1 [facility] rine 6-30 tablet by [facility]y of (FLEXERIL) 00:00: mouth [place] 5 mg tablet 00 (three) Medic al times Branch daily. ondansetron 2016-0 Yes 4mg Take 1 [facility] (ZOFRAN, 6-30 tablet by ity of HYDROCHLORI 00:00: mouth [place],) 4 mg 00 every 8 Medical tablet (eight) Branch hours as needed for Nausea and Vomiting (N/V). cyclobenzap 2016-0 Yes 5mg Take 1 [facility] rine 6-30 tablet by ity of (FLEXERIL) 00:00: [place] 5 mg tablet 00 (three) Medic al times Branch daily. ondansetron 2016-0 Yes 4mg Take 1 [facility] (ZOFRAN, 6-30 tablet by ity of HYDROCHLORI 00:00: mouth [place],) 4 mg 00 every 8 Medical tablet (eight) Branch hours as needed for Nausea and Vomiting (N/V). cyclobenzap 2016-0 Yes 5mg Take 1 [facility]ine 6-30 tablet by ity of (FLEXERIL) 00:00: [place] 5 mg tablet 00 (three) Medic al times Branch daily. ondansetron 2016-0 Yes 4mg Take 1 [facility] ers (ZOFRAN, 6-30 tablet by ity of HYDROCHLORI 00:00: mouth [place],) 4 mg 00 every 8 Medical tablet (eight) Branch hours as needed for Nausea and Vomiting (N/V). cyclobenzap 2016-0 Yes 5mg Take 1 [facility] rine 6-30 tablet by ity of (FLEXERIL) 00:00[place] 5 [place] tablet 00 (three) Medic al times Branch daily. cyclobenzap 2016-0 Yes 5mg Take 1 Univ ers rine 6-30 tablet by ity of (FLEXERIL) 00:00[place] 5 [place] tablet 00 (three) Medic al times Branch daily. cyclobenzap 2016-0 Yes 5mg Take 1 Univ ers rine 6-30 tablet by ity of (FLEXERIL) 00:00: mouth [place] 5 [place] tablet 00 (three) Medic al times Branch daily. cyclobenzap 2016-0 Yes 5mg Take 1 Univ ers rine 6-30 tablet by ity of (FLEXERIL) 00:00: mouth [place] 5 [place] tablet 00 (three) Medic al times Branch daily. ondansetron 2016-0 Yes 4mg Take 1 Univ ers (ZOFRAN, 6-30 tablet by ity of HYDROCHLORI 00:00: mouth [place] DE,) 4 mg 00 every 8 Medical tablet (eight) Branch hours as needed for Nausea and Vomiting (N/V). cyclobenzap 2016-0 Yes 5mg Take 1 Univ ers rine 6-30 tablet by ity of (FLEXERIL) 00:00: mouth [place] 5 [place] tablet 00 (three) Medic al times Branch daily. cyclobenzap 2016-0 Yes 5mg Take 1 Univ ers rine 6-30 tablet by ity of (FLEXERIL) 00:00: mouth 3 [place] 5 [place] tablet 00 (three) Medic al times Branch daily. clopidogrel 2016-0 Yes 75mg Take 75 mg Univers (PLAVIX) 75 5-30 by mouth ity of mg tablet 20:19: daily. [place] [id number] Medical Branch ipratropium 2016-0 Yes .5mg Inhale 0.5 Univers (ATROVENT) 5-30 mg. ity of 0.02 % 20:19: [place] nebulizer 16 Medical solution Branch albuterol 2015-0 Yes 2.5mg Inhale 2.5 U nivers (PROVENTIL) 5-30 mg every 4 it y of 2.5 mg /3 20:19: (four) [place] mL (0.083 16 hours as Medica l %) needed for Branch nebulizer Wheezing solution or Shortness of Breath. budesonide- 2015-0 Yes 2{puff} Inhale 2 Univers formoterol 5-30 Puffs 2 ity of (SYMBICORT) 20:19: (two) [place] 160-4.5 16 times Medical mcg/actuati daily. Branch on inhaler ipratropium Yes .5mg Inhale 0.5 Univers (ATROVENT) 5-30 mg. ity of 0.02 % 20:19: [place] nebulizer 16 Medical solution Branch ipratropium Yes .5mg Inhale 0.5 Univers (ATROVENT) 5-30 mg. ity of 0.02 % 20:19: [place] nebulizer 16 Medical solution Branch levofloxaci 2015-0 Yes 500mg Take 500 U nivers n 5-30 mg by ity of (LEVAQUIN) 20:19: mouth [place] 750 mg 16 every 24 Medical tablet (twenty-fo Branch ur) hours. METOPROLOL Yes 25mg Take 25 mg U nivers TARTRATE 5-30 by mouth 2 ity o f ORAL 20:19: (two) [place] 16 times Medical daily. Branch Omeprazole Yes Take by [facility] [place] ers Magnesium 5-30 mouth. ity of 20 mg 20:19: [place] capsule 16 Medical Branch predniSONE 0 Yes 20mg Take 20 mg U nivers (DELTASONE) 5-30 by mouth ity of 20 mg 20:19: daily. [place] tablet 15 Medical Branch albuterol 0 Yes 2.5mg Inhale 3 Uni vers (PROVENTIL) 5-30 mL every 4 it y of 2.5 mg /3 00:00: (four) [place] mL (0.083 00 hours. May Medi waqar %) also Branch nebulizer nebulize solution one extra every 6 hours. albuterol Yes 2.5mg Inhale 3 Uni vers (PROVENTIL) 5-30 mL every 4 it y of 2.5 mg /3 00:00: (four) [place] mL (0.083 00 hours. May Medi waqar %) also Branch nebulizer nebulize solution one extra every 6 hours. albuterol Yes 2.5mg Inhale 3 Uni vers (PROVENTIL) 5-30 mL every 4 it y of 2.5 mg /3 00:00: (four) [place] mL (0.083 00 hours. May Medi waqar %) also Branch nebulizer nebulize solution one extra every 6 hours. albuterol Yes 2.5mg Inhale 3 Uni vers (PROVENTIL) 5-30 mL every 4 it y of 2.5 mg /3 00:00: (four) [place] mL (0.083 00 hours. May Medi waqar %) also Branch nebulizer nebulize solution one extra every 6 hours. predniSONE Yes 1 PO BID x U nivers (DELTASONE) 5-30 4 days ity of 20 mg 00:00: [place] tablet 00 Medical Branch albuterol Yes 2.5mg Inhale 3 Uni vers (PROVENTIL) 5-30 mL every 4 it y of 2.5 mg /3 00:00: (four) [place] mL (0.083 00 hours. May Medi waqar %) also Branch nebulizer nebulize solution one extra every 6 hours. albuterol Yes 2.5mg Inhale 3 Uni vers (PROVENTIL) 5-30 mL every 4 it y of 2.5 mg /3 00:00: (four) [place] mL (0.083 00 hours. May Medi waqar %) also Branch nebulizer nebulize solution one extra every 6 hours. albuterol Yes 2.5mg Inhale 3 Uni vers (PROVENTIL) 5-30 mL every 4 it y of 2.5 mg /3 00:00: (four) [place] mL (0.083 00 hours. May Medi waqar %) also Branch nebulizer nebulize solution one extra every 6 hours. albuterol Yes 2.5mg Inhale 3 Uni vers (PROVENTIL) 5-30 mL every 4 it y of 2.5 mg /3 00:00: (four) [place] mL (0.083 00 hours. May Medi waqar %) also Branch nebulizer nebulize solution one extra every 6 hours. predniSONE 2015- Yes 1 PO BID x U nivers (DELTASONE) 5-30 4 days ity of 20 mg 00:00: [place] tablet 00 Medical Branch albuterol Yes 2.5mg Inhale 3 Uni vers (PROVENTIL) 5-30 mL every 4 it y of 2.5 mg /3 00:00: (four) [place] mL (0.083 00 hours. May Medi waqar %) also Branch nebulizer nebulize solution one extra every 6 hours. albuterol Yes 2.5mg Inhale 3 Uni vers (PROVENTIL) 5-30 mL every 4 it y of 2.5 mg /3 00:00: (four) [place] mL (0.083 00 hours. May Medi waqar %) also Branch nebulizer nebulize solution one extra every 6 hours. albuterol Yes 2.5mg Inhale 3 Uni vers (PROVENTIL) 5-30 mL every 4 it y of 2.5 mg /3 00:00: (four) [place] mL (0.083 00 hours. May Medi waqar %) also Branch nebulizer nebulize solution one extra every 6 hours. predniSONE Yes 1 PO BID x U nivers (DELTASONE) 5-30 4 days ity of 20 mg 00:00: [place] tablet 00 Medical Branch albuterol Yes 2.5mg Inhale 3 Uni vers (PROVENTIL) 5-30 mL every 4 it y of 2.5 mg /3 00:00: (four) [place] mL (0.083 00 hours. May Medi waqar %) also Branch nebulizer nebulize solution one extra every 6 hours. albuterol Yes 2.5mg Inhale 3 Uni vers (PROVENTIL) 5-30 mL every 4 it y of 2.5 mg /3 00:00: (four) [place] mL (0.083 00 hours. May Medi waqar %) also Branch nebulizer nebulize solution one extra every 6 hours. albuterol Yes 2.5mg Inhale 3 Uni vers (PROVENTIL) 5-30 mL every 4 it y of 2.5 mg /3 00:00: (four) [place] mL (0.083 00 hours. May Medi waqar %) also Branch nebulizer nebulize solution one extra every 6 hours. albuterol Yes 2.5mg Inhale 3 Uni vers (PROVENTIL) 5-30 mL every 4 it y of 2.5 mg /3 00:00: (four) [place] mL (0.083 00 hours. July Medi waqar %) also Branch nebulizer nebulize solution one extra every 6 hours. albuterol Yes 2.5mg Inhale 3 Uni vers (PROVENTIL) 5-30 mL every 4 it y of 2.5 mg /3 00:00: (four) [place] mL (0.083 00 hours. July Medi waqar %) also Branch nebulizer nebulize solution one extra every 6 hours. predniSONE 2020- No 1 PO BID x Univers (DELTASONE) 08-04 4 days ity o f 20 mg 00:00: 00:00 [place] tablet 00 :00 Medical [place] Immunizations Ordered Immunization Filled Immunization Date Status Commen ts Source Name Name pneumococcal 2007-10-21 Completed [facility] 23-valent vaccine 13:48:00 [place] pneumococcal 2007-10-21 Completed [facility] 23-valent vaccine 13:48:00 [place] Vital Signs Vital Name Observation Time Observation Value Comments Source Systolic blood 2021-12-11 21:12:00 114 mm[Hg] Univer sity of pressure [facility] Diastolic blood 2021-12-11 21:12:00 52 mm[facility]Hg[facility] 2021-12-11 21:12:00 68 /min [facility] Body temperature 2021-12-11 21:12:00 35.67 Azul [facility] [place] [facility] 2021-12-11 21:12:00 18 /min [facility] Oxygen saturation in 2021-12-11 21:12:00 100 /min [facility] Arterial blood by [facility] Pulse oximetry Branch Body weight 2021-12-11 09:42:00 66.996 kg [facility] BMI 2021-12-11 09:42:00 22.46 kg/m2 [facility] Body height 2021-12-09 22:37:00 172.7 cm [facility] Systolic blood 2021-11-26 16:33:00 140 mm[Hg] Univer sity of pressure [place] [facility] Diastolic blood 2021-11-26 16:33:00 75 mm[Hg] Unive rsity of pressure [place] [facility] Heart rate 2021-11-26 16:33:00 69 /min [facility] [place] [facility] Body temperature 2021-11-26 16:33:00 36.22 Azul Univ ersity of [place] [facility] Respiratory rate 2021-11-26 16:33:00 18 /min Univ ersity of [place] [facility] Oxygen saturation in 2021-11-26 16:33:00 97 /min University of Arterial blood by [facility] waqar Pulse oximetry Branch Body height 2021-11-24 21:35:00 172.7 cm Universi ty [facility] [place] [facility] Body weight 2021-11-24 21:35:00 63.458 kg [facility]i ty [facility] [place] [facility] BMI 2021-11-24 21:35:00 21.27 kg/m2 [facility] [place] [facility] Systolic blood 2021-11-23 11:15:00 163 mm[Hg] Univer sity of pressure [place] [facility] Diastolic blood 2021-11-23 11:15:00 67 mm[Hg] Unive rsity of pressure [place] [facility] Heart rate 2021-11-23 11:15:00 68 /min [facility]i ty [facility] [place] [facility] Respiratory rate 2021-11-23 11:15:00 20 /min Univ ersity of [place] [facility] Oxygen saturation in 2021-11-23 11:15:00 98 /min University of Arterial blood by [facility] Pulse oximetry Branch Body temperature 2021-11-23 06:12:00 36.17 Azul Univ ersity of [place] [facility] Body weight 2021-11-23 06:12:00 68.04 kg Universi ty [facility] [place] [facility] BMI 2021-11-23 06:12:00 22.15 kg/m2 [facility] [place] [facility] Systolic blood 2021-11-08 20:37:00 156 mm[Hg] Univer sity of pressure [place] [facility] Diastolic blood 2021-11-08 20:37:00 77 mm[Hg] Unive rsity of pressure [place] [facility] Heart rate 2021-11-08 20:37:00 68 /min [facility]i ty [facility] [place] [facility] Respiratory rate 2021-11-08 20:37:00 16 /min Univ ersity of [place] [facility] Oxygen saturation in 2021-11-08 20:37:00 97 /min University of Arterial blood by [place] [facility]i waqar Pulse oximetry Branch Body temperature 2021-11-08 17:23:00 36.44 Azul Univ ersity of [place] [facility] Body height 2021-11-08 17:23:00 175.3 cm [facility]i ty [facility] [place] [facility] Body weight 2021-11-08 17:23:00 68.04 kg [facility]i [facility] [place] [facility] BMI 2021-11-08 17:23:00 22.15 kg/m2 [facility]i [facility] [place] [facility] Systolic blood 2021-08-31 22:00:00 143 mm[Hg] Univer sity of pressure [place] [facility] Diastolic blood 2021-08-31 22:00:00 77 mm[Hg] Unive rsity of pressure [place] [facility] Heart rate 2021-08-31 22:00:00 60 /min [facility]i ty [facility] [place] [facility] Respiratory rate 2021-08-31 22:00:00 22 /min Univ ersity of [place] [facility] Oxygen saturation in 2021-08-31 22:00:00 97 /min University of Arterial blood by [place] [employer] waqar Pulse oximetry Branch Body temperature 2021-08-31 20:13:37 36.22 Azul Univ ersity of [place] [facility] Body height 2021-08-31 19:44:00 177.8 cm [facility]i [facility] [place] [facility] Body weight 2021-08-31 19:44:00 71.668 kg [facility] [place] [facility] BMI 2021-08-31 19:44:00 22.67 kg/m2 [facility] [place] [facility] Systolic blood 2019-09-20 17:45:00 145 mm[Hg] Univer sity of pressure [place] [facility] Diastolic blood 2019-09-20 17:45:00 72 mm[Hg] Unive rsity of pressure [place] [facility] Respiratory rate 2019-09-20 17:45:00 15 /min Univ ersity of [place] [facility] Heart rate 2019-09-20 17:40:00 57 /min [facility]i [facility] [place] [facility] Oxygen saturation in 2019-09-20 17:40:00 100 /min University of Arterial blood by [place] [employer] waqar Pulse oximetry Branch Body temperature 2019-09-20 17:27:00 37 Azul Univ ersity of [place] [facility] Body height 2019-09-15 14:52:00 175.3 cm Universi ty [facility] Body weight 2019-09-15 14:52:00 61.7 kg Universi ty [facility] BMI 2019-09-15 14:52:00 20.08 kg/m2 Universi ty [facility] Respiratory rate 2019-09-20 17:21:00 24 /min [facility] [place] [facility] Systolic blood 2019-09-06 15:35:00 151 mm[Hg] Univer sity of pressure [facility] Diastolic blood 2019-09-06 15:35:00 71 mm[Hg] Unive rsity of pressure [facility] Heart rate 2019-09-06 15:35:00 64 /min Universi [facility] [place] [facility] Respiratory rate 2019-09-06 15:35:00 16 /min [facility] Oxygen saturation in 2019-09-06 15:35:00 100 /min [facility] Arterial blood by [facility] Pulse oximetry Branch Body temperature 2019-09-06 12:36:00 36.89 Azul [facility] Body height 2019-09-04 16:45:00 175.3 cm [facility] [place] [facility] [place] [facility] Body weight 2019-09-04 16:45:00 61.689 kg [facility] [place] [facility] [place] [facility] BMI 2019-09-04 16:45:00 20.08 kg/m2 [facility] Respitory Rate 2017-12-30 13:11:00 [facility] Heart Rate 2017-12-30 13:11:00 [facility] Systolic (mm Hg) 2017-12-30 13:11:00 [place] Diastolic (mm Hg) 2017-12-30 13:11:00 Mem orial [place] Temperature Oral (F) 2017-12-30 13:11:00 98.1 F [facility] [place] Temperature Oral (F) 2017-12-30 07:40:00 97.8 F [facility] [place] Heart Rate 2017-12-30 07:40:00 [facility] Systolic (mm Hg) 2017-12-30 07:40:00 [place] rial [place] Diastolic (mm Hg) 2017-12-30 07:40:00 Mem orial [place] Respitory Rate 2017-12-30 07:40:00 Isai Martinez Heart Rate 2017-12-30 00:29:00 [facility] [place] Temperature Oral (F) 2017-12-30 00:29:00 97.6 F [facility] [place] Respitory Rate 2017-12-30 00:29:00 Isai lafleur [place] Systolic (mm Hg) 2017-12-30 00:29:00 [place] Searsann Diastolic (mm Hg) 2017-12-30 00:29:00 Mem orial [place] Weight 2017-12-29 02:05:00 [facility] BMI Calculated 2017-12-29 02:05:00 Isai lafleur [place] Height 2017-12-29 02:05:00 175.26 cm [facility] Weight 2017-12-28 18:05:00 [facility] [place] BMI Calculated 2017-12-28 18:05:00 Isai lafleur [place] Height 2017-12-28 18:05:00 175.26 cm [facility] Procedures Procedure Date / Time Performing Clinician Source Performed BASIC METABOLIC PANEL (NA, 2021-12-10 09:31:00 Ramonita [facility] K, CL, CO2, GLUCOSE, BUN, Medica l Branch CREATININE, CA) CBC WITH DIFF 2021-12-10 [facility]:31[facility] 2021-12-10 09:31[facility] WHOLE BLOOD 2021-12-10 02:26:00 Leeanne Hawley [facility] CT CHEST PULMONARY 2021-12-09 20:35:00 Leeanne Hawley [facility] ANGIOGRAM [facility] CT HEAD WO CONTRAST 2021-12-09 20:27:00 Leeanne Hawley [facility] URINALYSIS 2021-12-09 19:49:00 Leeanne Halwey [facility] EKG-12 LEAD 2021-12-09 19:46:25 Leeanne Hawley [facility] HB ECG ROUTINE & RHYTHM 2021-12-09 18:56:55 Leeanne Hawley [facility] AC ABG + LACTIC ACID 2021-12-09 18:43:00 Leeanne Hawley [facility] BLOOD CULTURE SCREEN 2021-12-09 18:38:00 Leeanne Hawley [facility] Medical Branch LIPASE 2021-12-09 18:38:00 Leeanne Hawley [facility] TROPONIN I 2021-12-09 18:38:00 Leeanne Hawley [facility] COMP. METABOLIC PANEL 2021-12-09 18:38:00 Leeanne Hawley [facility] ([id number]) Medical Branch CBC WITH DIFF 2021-12-09 18:38:00 Leeanne Hawley [facility] PROTHROMBIN TIME / INR 2021-12-09 18:38:00 Leeanne Hawley [facility] N-TERMINAL PRO-BNP 2021-12-09 18:38:00 Leeanne Hawley [facility] COVID-19 (ID NOW RAPID 2021-12-09 18:38:00 Leeanne Hawley [facility] TESTING) Medical Branch LAB ONLY COVID 2021-12-09 18:38:00 Leeanne Hawley [facility] INTERPRETATION [facility] XR CHEST 1 VW 2021-12-09 18:32:10 Leeanne Hawley [facility] NOTICE OF PRIVACY 2021-12-09 17:39:37 [facility] PRACTICES [place] [facility] [place] CONSENT/REFUSAL FOR 2021-12-09 17:39:13 Doctor Meeta, [facility] DIAGNOSIS AND TREATMENT [place] [facility] [place] DNR 2021-12-09 05:01:00 Doctor Meeta, [facility] Name Medical Branch REFERRAL- REQUEST/RESPONSE 2021-12-09 05:01:00 [facility] Name Medical [place] TRANSTHORACIC ECHO (TTE) 2021-11-26 13:08:00 Joo Mccabe [facility] [place] CT HEAD WO CONTRAST 2021-11-26 10:34:23 Fabienne Vegas [facility] Medical [place] TRANSTHORACIC ECHO (TTE) 2021-11-25 20:00:00 Glenys Ayala [facility] COMPLETE W/ CONTRAST Medical Bra [facility] LIPID PANEL ([id number])(TOTAL 2021-11-25 11:55:00 Glenys Ayala [facility] CHOLESTEROL, Medical Branch TRIGLYCERIDES, HDL) TROPONIN I 2021-11-25 11:49:00 Jamie Glenys [facility] BASIC METABOLIC PANEL (NA, 2021-11-25 11:49:00 Glenys Ayala [facility] K, CL, CO2, GLUCOSE, BUN, Medica l Branch CREATININE, CA) HB ECG ROUTINE & RHYTHM 2021-11-25 11:37:48 Jamie [facility] COMP. METABOLIC PANEL 2021-11-24 18:10:00 Singer [facility] ([id number]) Medical Branch CBC WITH DIFF 2021-11-24 17:40:00 Singer [facility] GLYCOSYLATED HEMOGLOBIN 2021-11-24 17:40:00 Jamie [facility] (A1C) Medical Branch N-TERMINAL PRO-BNP 2021-11-24 17:40:00 Singer Richi [facility] Medical Branch COVID-19 (ID NOW RAPID 2021-11-24 17:40:00 Singer [facility] TESTING) Medical Branch LAB ONLY COVID 2021-11-24 17:40:00 Singer Richi [facility] INTERPRETATION [facility] Branch HB ECG ROUTINE & RHYTHM 2021-11-24 17:34:08 Singer [facility] EMERGENCY DEPARTMENT 2021-11-24 05:01:00 Doctor Unaelif, [facility] DOCUMENTS [place] [facility] [place] HOSPITAL ADMISSION 2021-11-24 05:01:00 Doctor Unaelif, [facility] EKG-12 LEAD 2021-11-23 11:26:31 Faustino Wong [facility] CT ANGIOGRAM HEAD 2021-11-23 08:33:48 Faustino Wong [facility] CT ANGIOGRAM NECK 2021-11-23 08:33:48 Faustino Wong [facility] CT ABDOMEN PELVIS WO 2021-11-23 08:33:18 Faustino Wong [facility] CONTRAST Medical Branch CT HEAD WO CONTRAST 2021-11-23 08:31:00 Faustino Wong [facility] XR CHEST 1 VW 2021-11-23 06:57:34 Faustino Wong [facility] LIPASE 2021-11-23 06:50:00 Faustino Wong [facility] TROPONIN I 2021-11-23 06:50:00 Faustino Wong [facility] COMP. METABOLIC PANEL 2021-11-23 06:50:00 Faustino Wong [facility] ([id number]) [facility] CBC WITH DIFF 2021-11-23 06:50:00 Faustino Wong [facility] PROTHROMBIN TIME / INR 2021-11-23 06:50:00 Faustino Wong [facility] ACTIVATED PARTIAL THRMPLAS 2021-11-23 06:50:00 Faustino Wong [facility] N-TERMINAL PRO-BNP 2021-11-23 06:50:00 Faustino Wong [facility] COVID-19 (ID NOW RAPID 2021-11-23 06:50:00 Faustino Wong [facility] TESTING) [facility] CT ABDOMEN PELVIS W 2021-11-08 18:24:49 Leeanne Hawley [facility] CONTRAST [facility] URINALYSIS 2021-11-08 17:54:00 Leeanne Hawley [facility] CONSENT/REFUSAL FOR 2021-11-08 17:42:03 Doctor Unassigned, [facility] DIAGNOSIS AND TREATMENT [place] [facility] LIPASE 2021-11-08 17:38:00 Leeanne Hawley [facility] TROPONIN I 2021-11-08 17:38:00 Leeanne Hawley [facility] COMP. METABOLIC PANEL 2021-11-08 17:38:00 Leeanne Hawley [facility] ([id number]) [facility] CBC WITH DIFF 2021-11-08 17:38:00 Leeanne Hawley [facility] PROTHROMBIN TIME / INR 2021-11-08 17:38:00 Leeanne Hawley [facility] ACTIVATED PARTIAL THRMPLAS 2021-11-08 17:38:00 Leeanne Hawley [facility] N-TERMINAL PRO-BNP 2021-11-08 17:38:00 Leeanne Hawley [facility] COVID-19 (ID NOW RAPID 2021-11-08 17:38:00 Leeanne Hawley [facility] TESTING) Medical Branch URINALYSIS 2021-08-31 21:12:00 Keren Garcia [facility] CT ABDOMEN PELVIS W 2021-08-31 20:57:16 Keren Garcia [facility] CONTRAST Medical Branch LACTIC ACID WHOLE BLOOD 2021-08-31 20:05:00 [facility] 2021-08-31 20:04:00 Keren Garcia [facility] TROPONIN I 2021-08-31 20:04:00 Keren Garcia [facility] COMP. METABOLIC PANEL 2021-08-31 20:04:00 Keren Garcia [facility] ([id number]) Medical Branch CBC WITH DIFF 2021-08-31 20:04:00 Keren Garcia [facility] NOTICE OF PRIVACY 2021-08-31 19:53:25 Doctor Meeta [facility] [place] [facility] CONSENT/REFUSAL FOR 2021-08-31 19:41:26 Doctor Meeta [facility] DIAGNOSIS AND TREATMENT [place] [facility] CONSENT/REFUSAL FOR 2019-09-19 16:50:11 Doctor Meeta [facility] DIAGNOSIS AND TREATMENT [place] [facility] [place] ASSIGNMENT OF BENEFITS 2019-09-19 16:49:50 Doctor Meeta, [facility] [place] [facility] COVID-19 (ID NOW RAPID 2019-09-05 13:59:00 Baljinder Blankenship [facility] TESTING) Medical Branch NOTICE OF BILLING 2019-09-05 13:42:11 Doctor Meeta [facility] PRACTICES FOR MEDICARE [place] [facility] PATIENTS NO SHOW OR MISSED 2019-08-28 16:38:58 Doctor Meeta [facility] APPOINTMENT POLICY [place] [facility] h ACKNOWLEDGEMENT NOTICE OF PRIVACY 2019-08-28 16:38:33 Doctor Meeta [facility] [place] [facility] CONSENT/REFUSAL FOR 2019-08-28 16:38:09 Doctor Meeta, [facility] DIAGNOSIS AND TREATMENT [place] [facility] ASSIGNMENT OF BENEFITS 2019-08-28 16:37:41 Doctor Maryssanais, [facility] [place] [facility] Encounters Start End Encounter Admission Attending Care Care Encounter Source Date/Time Date/Time Type Type Clinicians Facility Department ID 2021-01-03 [facility] [id number] Univers 05:38:44 SEBASTIAN boo [facility] 2021-01-03 [facility] [id number] Univers 02:09:15 SEBASTIAN itboo [facility] 2021-12-12 2021-12-12 Transition BRIJESH Vincent [id number] Univers 00:00:00 00:00:00 of Care Mabel BEAR [id number] i ty of [id number] [id number] [facility] 403 Branch 2021-12-09 2021-12-11 [facility] [id number] Univers 12:45:00 17:25:00 ESTEBAN ity [facility] 2021-12-09 2021-12-11 Emergency Leeanne Hawley [facility] [id number] Univers 12:45:00 17:25:00 Tunde Gamez [id number] ity [facility]eb[facility] [id number] [facility] [id number] [facility] 081 Branch 2021-12-09 2021-12-09 Outpatient Bethany SIDHU [facility] [id number] Univers 11:00:00 11:00:00 MANISHA ity of [facility] 2021-12-09 2021-12-09 Orders Doctor ROGER [id number] Univers 00:00:00 00:00:00 Only UnassEDWIGE manzo [id number] ity of [place] [facility] [id number] Zac as [id number] [facility] 009 Branch 2021-11-27 2021-11-27 Transition BRIJESH Coley [id number] Univers 00:00:00 00:00:00 of Geoffrey BEAR [id number] it y [id number] [id number] [facility] 403 Branch 2021-11-24 2021-11-26 [facility] Richi Castellon [id number] Univers 12:26:00 16:47:00 Encounter Mariajose Garcia 350. [id number] ity of [facility] [id number] Zac as [id number] [place] [id number] [place] 2021-11-23 2021-11-23 Emergency X PRITI [facility] ERT [id number] Univers 01:10:00 06:46:00 FAUSTINO claudetteboo [facility] 2021-11-23 2021-11-23 Emergency [facility] [id number] Univers 01:10:00 06:46:00 Faustino CHANG 350.1.13.10 ity [facility] 4.2.7.2.686 [facility] [id number] [address] 2021-11-23 2021-11-23 Emergency X [facility] [id number] Univers 01:10:00 06:46:00 FAUSTINO montaño [facility] 2021-11-08 2021-11-08 Emergency Sanjeev [facility] ERT [id number] Univers 12:26:00 16:00:00 LEEANNE montaño [facility] 2021-11-08 2021-11-08 Emergency [facility] 1.2.836.802 [id number] Univers 12:26:00 16:00:00 Leeanne CHANG 350.1.13.10 i ty of [place] 4.2.7.2.686 [facility] [id number] [address] 2021-08-31 2021-08-31 Emergency Sanjeev [facility] ERT [id number] Univers 14:47:00 17:37:00 KEREN montaño [facility] 2021-08-31 2021-08-31 Emergency [facility] 1.2.840.114 [id number] Univers 14:47:00 17:37:00 Keren Paris CHANG 350.1.13.10 ity of [place] 4.2.7.2.686 [facility] [id number] [facility] [address] 2019-09-20 2019-09-20 [facility] 1.2.402.395 [id number] Univers 09:06:00 12:51:00 Encounter Sebastian Chang 350.1.13.10 it[place].686 [place] [facility] [id number] [address] 2019-09-20 2019-09-20 Anesthesia Clydecony Pablo [facility] 1.2.840.11 [id number] Univers 11:44:00 12:22:00 Alley Hopper 350.1.13.10 ity of [place].2.686 [place] [facility] [id number] [facility] [address] 2019-09-19 2019-09-19 Outpatient R [facility] [id number] Univers 13:45:00 13:45:00 ity of [facility] 2019-09-19 2019-09-19 Laboratory Only, Adc Test [facility] 1.2.840. 114 [id number] Univers 11:51:03 12:06:03 Only Ben Angeles 350.1.13.10 ity of [place] 4.2.7.2.686 [facility] s [place] [id number] [facility] [address] 2019-09-06 2019-09-06 [facility] 1.2.536.108 [id number] Univers 07:16:00 10:35:00 Encounter Sebastian Chang 350.1.13.10 ity of [place] 4[place].2.686 [place] [facility] [id number] [address] 2019-09-05 2019-09-05 Outpatient R [facility] [id number] Univers 09:00:00 09:00:00 ity of [facility] 2019-09-05 2019-09-05 Laboratory Only, Adc Test [facility] 1.2.840. 114 [id number] Univers 08:32:02 08:47:02 Only Ben [place] 350.1.13.10 ity of [place] 4.2.7.2.686 [place] [id number] [address] 2019-09-05 2019-09-05 Orders Doctor ACACIA 1.2.840.114 [id number] Univers 00:00:00 00:00:00 Only Unassigned, EDWIGE 350.1.13.10 [place] [facility] 4.2.7.2.686 Zac [id number] [address] 2019-08-28 2019-08-28 Engineering Systems Analyst Yuni, Adc Lab Main [facility] 1.2.8 40.114 [id number] Univers 11:46:40 12:01:40 Visit Sebastian Nolasco Shefali 350.1.13.1 0 ity of [place] 4.2.7.2.686 [facility] [id number] Ak [address] 2019-08-28 2019-08-28 Outpatient R [facility] [id number] [facility] 12:00:00 12:00:00 SEBASTIAN montaño [facility] 2019-05-15 2019-05-15 [facility] [id number] 10:41:00 10:41:00 [id number] [facility] 2019-05-13 2019-05-13 Outpatient 1 HARJIT SALINAS OBE 1207 [id number] 19:58:00 19:58:00 JESUS [id number] Hospi ta l ([facility] nt) 2017-12-28 2017-12-30 Observatio nullFlavo [facility] [id number] Memoria 18:08:00 16:59:00 becky Ramey 66 l [facility] 2017-12-28 2017-12-30 Observatio nullFlavo [facility] [id number] Memoria 18:08:00 16:59:00 becky Ramey 66 l [facility] 2017-12-28 2017-12-30 Outpatient Eliu [facility] [id number] 13:08:00 11:59:00 Cerena K 67 Results Test Description Test Time Test Comments Results Result Comments Source CBC WITH DIFF 2021-12-09 19:55:39 Test Item Value Reference Range Interpretation Comme nts WBC (test code = 6690-2) See_Comment [A utomated message] The system which ge nerated this result transmit jw reference range: 4.20 - 1 0.70 10*3/?L. The reference r bret was not used to interpr et this result as normal/abnor mal. RBC (test code = 789-8) See_Comment L [Au tomated message] The system which ge nerated this result transmit jw reference range: 4.26 - 5 .52 10*6/?L. The reference r bret was not used to interpr et this result as normal/abnor mal. HGB (test code = 718-7) 9.6 g/dL 12.2-16.4 L HCT (test code = 4544-3) 31.2 % 38.4-49.3 L MCV (test code = 787-2) 79.2 fL 81.7-95.6 L MCH (test code = 785-6) 24.4 pg 26.1-32.7 L MCHC (test code = 786-4) 30.8 g/dL 31.2-35 L RDW-SD (test code = 82530-6) 55.2 fL 38.5-51.6 H RDW-CV (test code = 788-0) 19.2 % 12.1-15.4 H PLT (test code = 777-3) See_Comment [Au tomated message] The system which ge nerated this result transmit jw reference range: 150 - 32 8 10*3/?L. The reference range was not used to interpret th is result as normal/abnormal . MPV (test code = 48665-7) 11.1 fL 9.8-13 NRBC/100 WBC (test code = See_Comment [ Automated message] The 3470700454) system which [employer] nerated this result transmit jw reference range: 0.0 - 10 .0 /100 WBCs. The reference r bret was not used to interpr et this result as normal/abnor mal. NRBC x10^3 (test code = See_Comment [Au tomated message] The 6036002310) system which ge nerated this result transmit jw reference range: 10*3/?L. The reference range was not u sed to interpret this result as normal/abnormal . GRAN MAT (NEUT) % (test code 50.2 % = 770-8) IMM GRAN % (test code = 0.90 % 2320455433) LYMPH % (test code = 736-9) 33.5 % MONO % (test code = 5905-5) 12.1 % EOS % (test code = 713-8) 1.9 % BASO % (test code = 706-2) 1.4 % GRAN MAT x10^3(ANC) (test 2.16 10*3/uL 1.99-6.95 code = 3555219327) IMM GRAN x10^3 (test code = 0.04 10*3/uL 0-0.06 9729850581) LYMPH x10^3 (test code = 1.44 10*3/uL 1.09-3.23 731-0) MONO x10^3 (test code = 0.52 10*3/uL 0.36-1.02 742-7) EOS x10^3 (test code = 0.08 10*3/uL 0.06-0.53 711-2) BASO x10^3 (test code = 0.06 10*3/uL 0.01-0.09 704-7) ELLIPTO/OVAL (test code = 2+ See_Comment A [ Automated message] The 08041-1) system which ge nerated this result transmit jw reference range: (none). The reference range was not u sed to interpret this result as normal/abnormal . POLYCHROMASIA (test code = 2+ See_Comment [Automated message] The 83281-0) system which [employer] nerated this result transmit jw reference range: 2+. The reference range was not used to interpret this result as mateo l/abnormal. Lab Interpretation (test Abnormal code = 79706-2) [id number] 19:30:38 Test Item Value Reference Interpretation Comments Range TROPONIN I (test See_Comment [Automated code = 2785499065) message] The system which generated this result transmitted reference range : <=0.034. The reference range was not used to interpret this result as normal/abnormal . ANDREA (test code = Reference (Normal) ANDREA) Range (defined by the 99th percentile reference limit): <= 0.034 ng/mL Note: Cardiac troponin begins to rise 3-4 hours after the onset of ischemia. Repeat in 4-6 hours if the sample was drawn within 3-4 hours of the onset of the symptom and found normal. Diagnosis of myocardial injury is made with acute changes in cTn concentrations with at least one serial sample above the 99th percentile upper reference limit (URL), taken together with the patient's clinical presentation. Biotin has been reported to cause a negative bias, interpret results relative to patient's use of biotin. Lab Interpretation Normal (test code = 48450-8) [facility] [id number] 19:30:12 Test Item Value Reference Range Interpretation Comments NT-proBNP (test code 319 pg/mL See_Comment H [Autom ated = 3221290615) message] The system which generated this result transmitted reference range : <=125. The reference range was not used to interpret this result as normal/abnormal . ANDREA (test code = ANDREA) Biotin has been reported to cause a negative bias, interpret results relative to patient's use of biotin. Lab Interpretation Abnormal (test code = 25573-4) [facility]OL[facility] PAN[facility] (44429)2021-12-09 19:18:24 Test Item Value Reference Range Interpretation Comments NA (test code = 137 mmol/L 135-145 4218394606) K (test code = 4.5 mmol/L 3.5-5 7931137501) CL (test code = 100 mmol/L 98-108 0980597172) CO2 TOTAL (test code = 24 mmol/L 23-31 2350427877) AGAP (test code = 2-16 4033006425) BUN (test code = 10 mg/dL 7-23 4388953700) GLUCOSE (test code = 132 mg/dL 70-110 H 8839025090) CREATININE (test code = 0.92 mg/dL 0.6-1.25 0858836387) TOTAL BILI (test code = 0.6 mg/dL 0.1-1.1 4384924849) CALCIUM (test code = 9.7 mg/dL 8.6-10.6 0130663301) T PROTEIN (test code = 7.5 g/dL 6.3-8.2 8938300898) ALBUMIN (test code = 4.5 g/dL 3.5-5 4381704701) ALK PHOS (test code = 88 U/L 34-122 7691025622) ALTv (test code = 16 U/L 5-50 1742-6) AST(SGOT) (test code = 32 U/L 13-40 6826800014) eGFR (test code = mL/min/1.73m2 0378274405) ANDREA (test code = ANDREA) Association of Glomerular Filtration Rate (GFR) and Staging of Kidney Disease* + --+ --+ ------+| GFR (mL/min/1.73 m2) ?| With Kidney Damage ?| ?Without Kidney Damage+ --------+ --------+ +| ?>90 ?| ?Stage one ?| ? Normal ?+ ---+ ---+ -------+| ?60-89 ?| ?Stage two ?| ? Decreased GFR ? + --+ --+ ------+| ?30-59 ?| ?Stage three ?| ? Stage three ? + --+ --+ ------+| ?15-29 ?| ?Stage four ? | ? Stage four ?+ ---+ ---+ -------+| ?<15 (or dialysis) ? ?| ?Stage five ? | ? Stage five ?+ ---+ ---+ -------+ *Each stage assumes the associated GFR level has been in effect for at least three months. ?Stages 1 to 5, with or without kidney disease, indicate chronic kidney disease. Notes: Determination of stages one and two (with eGFR >59mL/min/1.73 m2) requires estimation of kidney damage for at least three months as defined by structural or functional abnormalities of the kidney, manifested by either:Pathological abnormalities or Markers of kidney damage (including abnormalities in the composition of the blood or urine or abnormalities in imaging tests). Lab Interpretation Abnormal (test code = 71682-4) [facility]20[facility] 19:18:03 Test Item Value Reference Range Interpretation Comments LIPASE (test code = 8353305589) 78 U/L 0-220 Lab Interpretation (test code = Normal 22975-6) [facility] BrookPROTHROMBIN TIME / [id number] 19:03:22 Test Item Value Reference Range Interpretation Comments PROTIME PATIENT (test See_Comment [Auto mated message] code = 5964-2) The system [employer] generated this result transmitted ref erence range: 12.0 - 1 4.7 Seconds. The re ference range was not u sed to interpret this result as normal/abnor mal. INR (test code = 6301-6) Nor mal INR <1.1; Warfarin Therap eutic range 2.0 to 3. 0 or 2.5 to 3.5, dep ending upon the indica tions. Lab Interpretation (test Normal code = 19843-1) [facility] Brook[facility]ansthor[facility] echo (TTE)2021-11-26 21:19:15 Test Item Value Reference Range Interpretation Comments Height (test code = in 2979244101) Weight (test code = lbs 0249849415) Systolic BP (test mmHg code = 4265481265) Diastolic BP (test mmHg code = 1125485243) Heart Rate (test code bpm = 8425085360) BSA (test code = 1.75 m2 3480768311) Radiology Study observation (narrative) (test code = 14062-4) ANDREA (test code = ANDREA) ?Left?Atrium: Left atrium size is normal. Saline contrast shows no shunt. ?Left?Ventricle: This was focused ECHO for bubble study. Please See full ECHO report on 11/25/21 for further information. Left VentricleThis was focused ECHO for bubble study. Please See full ECHO report on 11/25/21 for further information.Right VentricleNot assessed.Left AtriumLeft atrium size is normal. Saline contrast shows no shunt.Right AtriumNot assessed.IVC/SVCSVC was not assessed.Mitral ValveNot assessed.Tricuspid ValveNot assessed.Aortic ValveNot assessed.Pulmonic ValveNot assessed.Ascending AortaNot assessed.PericardiumNot assessed.Study DetailsStudy quality was excellent. A limited echocardiogram was performed using 2D. Saline contrast was performed. Patient exhibited sinus rhythm. [facility] Protocol - Transthoracic echo (TTE) 2021-11-25 21:27:22 Test Item Value Reference Range Interpretation Comments LVIDD (test code = 4.50 cm 6127045070) Interventricular Septum 0.91 cm Diastolic Thickness by 2D (test code = 5195644) PW (test code = 0.86 cm 0.6-1.7 8140634772) LVIDS (test code = 3.10 cm 5043515919) LA volume (BP) (test 41.9 mL code = 8587126574) LA size (test code = 3.7 cm 8999177454) LVPWD (test code = 0.86 cm 0563393521) AV LVOT peak gradient mmHg (test code = 6594694956) E/A ratio (test code = ratio 5892584077) E wave decelartion time 0.19 s (test code = 9348317082) LVOT diameter (test code 1.88 cm = 1462137237) LVOT peak VTI (test code 24.9 cm = 5554269706) Ao peak adry (test code = 168.7 cm/s 3833394625) LVOT stroke volume (test 69.10 cm3 code = 8822990237) AV peak gradient (test mmHg code = 2605209477) Triscuspid Valve mmHg Regurgitation Peak Gradient (test code = 8144099611) MV Peak E Adry (test code 76.3 cm/s = 0199966022) MV Peak A Adry (test code 100.3 cm/s = 3240887837) LA Volume Index (BP) 24.0 mL/m2 (test code = 7716355661) IVS (test code = 0.91 cm 3815850913) Aortic root (test code = 3.2 cm 2556817999) Tapse (test code = 2.43 cm 2410101902) EF - 2D (test code = 58.70 % 57891475) Left Ventricular End 90.1 mL Diastolic Volume by Teichholz Method (test code = 5480276) Left Ventricular End 37.2 mL Systolic Volume by Teichholz Method (test code = 9295547) Ao root annulus (test 3.2 cm code = 8208960386) FS (test code = 31 % 5554667998) LVOT mn grad (test code mmHg = 8259918230) AV area peak adry (test 2.1 cm2 code = 5936974646) TR Peak Adry (test code = 339.1 cm/s 6357017821) LVOT area (test code = 2.80 cm2 5355740749) LVOT peak adry (test code 126.9 cm/s = 0224138870) BSA (test code = 1.75 m2 3077817597) Ao root diam (test code 3.20 cm = 0983023314) EF(Teich) (test code = 58.70 % 9675765911) LAV(MOD-sp2) (test code 34.60 mL = 6428201504) LAV(MOD-sp4) (test code 38.60 mL = 7931289381) LV V1 mean (test code = 74.30 cm/s 6068837320) MV Prop V (test code = 65.50 cm/s 9165808089) Ao max PG (test code = 11.40 mm[Hg] 2320631486) Height (test code = in 5358953214) Weight (test code = lbs 3378602224) Systolic BP (test code = mmHg 8878006703) Diastolic BP (test code mmHg = 8587529354) Heart Rate (test code = bpm 0788887676) MV E/e' septal (test 9.7 cm/s code = 6930180923) Radiology Study observation (narrative) (test code = 81915-8) ANDREA (test code = ANDREA) ?Left?Ventricle: Left ventricle size is normal. Normal wall thickness. Normal wall motion. Normal systolic function with a visually estimated EF of 60 - 65%. There is impaired relaxation. ?Right?Ventricle: Right ventricle is mildly dilated. Normal systolic function. There is a pacemaker lead in the right ventricle. ?Tricuspid?Valve: Tricuspid valve structure is normal. Mild transvalvular regurgitation. Right ventricular systolic pressure is 45-50 mmHg. ?Pericardium: The pericardium is normal. No pericardial effusion. Left VentricleLeft ventricle size is normal. Normal wall thickness. Normal wall motion. Normal systolic function with a visually estimated EF of 60 - 65%. There is impaired relaxation.Right VentricleRight ventricle is mildly dilated. Normal systolic function. There is a pacemaker lead in the right ventricle.Left AtriumLeft atrium is mildly dilated. Lipomatous hypertrophy present.Right AtriumRight atrium size is normal.IVC/SVCIVC diameter is less than or equal to 21 mm and decreases less than 50% during inspiration; therefore the estimated right atrial pressure is intermediate (~8 mmHg).Mitral ValveMitral valve structure is normal. Trace transvalvular regurgitation.Tricusp id ValveTricuspid valve structure is normal. Mild transvalvular regurgitation. Right ventricular systolic pressure is 45-50 mmHg.Aortic ValveAortic valve structure is normal.Pulmonic ValveNot well visualized.Ascending AortaNormal sized aorta.PericardiumThe pericardium is normal. No pericardial effusion.Study DetailsStudy quality was good. A complete echocardiogram was performed using 2D, color flow Doppler and spectral Doppler. 5 mL of Lumason ultrasound enhancing agent used. [facility] LIPID PANEL (76091)(TOTAL CHOLESTEROL, TRIGLYCERIDES, HDL)2021-11-25 14:04:16 Test Item Value Reference Range Interpretation Comments CHOL (test code = 113 mg/dL 120-200 L 2401670259) HDL (test code = 22 mg/dL See_Comment L [Automated message] 2541860986) The system [employer] generated this result transmit jw reference range : >=40. The refer ence range was not u sed to interpret th is result as normal/abnormal . HDLC RATIO (test code = See_Comment H [Au tomated message] 4087186595) The system [employer] generated this result transmit jw reference range : <=5.0. The refe rence range was not u sed to interpret th is result as normal/abnormal . TRIG (test code = 97 mg/dL 30-170 1697375892) LDL CHOL (test code = 72 mg/dL See_Comment [Auto mated message] 49572-8) The system [employer] generated this result transmit jw reference range : <=160. The refe rence range was not u sed to interpret th is result as normal/abnormal . VLDL (test code = 19 mg/dL 5-60 6930543520) Lab Interpretation (test Abnormal code = 76901-1) [facility]YCOSYLATED HEMOGLOBIN (A1C)2021-11-25 00:36:38 Test Item Value Reference Range Interpretation Comments HGB A1C (test code = 6.0 % 4-5.7 H 4548-4) ANDREA (test code = ANDREA) Reference RangesNormal: <5.7%Prediabetes: 5.7 - 6.4%Diabetes: > 6.5% Lab Interpretation (test Abnormal code = 00372-9) [facility] METABOLIC PANEL (06326)2021-11-24 19:07:52 Test Item Value Reference Range Interpretation Comments NA (test code = 134 mmol/L 135-145 L 9450818205) K (test code = 3.9 mmol/L 3.5-5 5723922067) CL (test code = 100 mmol/L 98-108 0772944288) CO2 TOTAL (test code = 27 mmol/L 23-31 3934410301) AGAP (test code = 2-16 9631213351) BUN (test code = 11 mg/dL 7-23 9558147770) GLUCOSE (test code = 96 mg/dL 70-110 3361944593) CREATININE (test code = 0.84 mg/dL 0.6-1.25 0635133007) TOTAL BILI (test code = 0.2 mg/dL 0.1-1.0 9897986174) CALCIUM (test code = 8.0 mg/dL 8.6-10.6 L 3952981149) T PROTEIN (test code = 5.9 g/dL 6.3-8.2 L 7479528139) ALBUMIN (test code = 3.9 g/dL 3.5-5 5291325220) ALK PHOS (test code = 88 U/L 34-122 6081264573) ALTv (test code = 15 U/L 5-50 1742-6) AST(SGOT) (test code = 24 U/L 13-40 9124403952) eGFR (test code = mL/min/1.73m2 7826140748) ANDREA (test code = ANDREA) Association of Glomerular Filtration Rate (GFR) and Staging of Kidney Disease* + --+ --+ ------+| GFR (mL/min/1.73 m2) ?| With Kidney Damage ?| ?Without Kidney Damage+ --------+ --------+ +| ?>90 ?| ?Stage one ?| ? Normal ?+ ---+ ---+ -------+| ?60-89 ?| ?Stage two ?| ? Decreased GFR ? + --+ --+ ------+| ?30-59 ?| ?Stage three ?| ? Stage three ? + --+ --+ ------+| ?15-29 ?| ?Stage four ? | ? Stage four ?+ ---+ ---+ -------+| ?<15 (or dialysis) ? ?| ?Stage five ? | ? Stage five ?+ ---+ ---+ -------+ *Each stage assumes the associated GFR level has been in effect for at least three months. ?Stages 1 to 5, with or without kidney disease, indicate chronic kidney disease. Notes: Determination of stages one and two (with eGFR >59mL/min/1.73 m2) requires estimation of kidney damage for at least three months as defined by structural or functional abnormalities of the kidney, manifested by either:Pathological abnormalities or Markers of kidney damage (including abnormalities in the composition of the blood or urine or abnormalities in imaging tests). Lab Interpretation Abnormal (test code = 06050-0) [facility] WITH [id number] 18:58:27 Test Item Value Reference Range Interpretation Comments WBC (test code = See_Comment L [Automated 6690-2) message] The sy stem which generated this result transmitted reference range : 4.20 - 10.70 10*3/?L. The reference range was not used to interpret this result as normal/abnormal . RBC (test code = See_Comment L [Automated 789-8) message] The sy stem which generated this result transmitted reference range : 4.26 - 5.52 10*6/?L. The reference range was not used to interpret this result as normal/abnormal . HGB (test code = 9.2 g/dL 12.2-16.4 L 718-7) HCT (test code = 29.5 % 38.4-49.3 L 4544-3) MCV (test code = 79.7 fL 81.7-95.6 L 787-2) MCH (test code = 24.9 pg 26.1-32.7 L 785-6) MCHC (test code = 31.2 g/dL 31.2-35 786-4) RDW-SD (test code = 53.2 fL 38.5-51.6 H 38045-5) RDW-CV (test code = 18.6 % 12.1-15.4 H 788-0) PLT (test code = See_Comment [Automated 777-3) message] The sy stem which generated this result transmitted reference range : 150 - 328 10*3/ ?L. The reference r bret was not used to interpret this result as normal/abnormal . MPV (test code = 11.4 fL 9.8-13 64930-4) NRBC/100 WBC (test See_Comment [Automat ed code = 5194046383) message] The system which generated this result transmitted reference range : 0.0 - 10.0 /100 WBCs. The refer ence range was not u sed to interpret th is result as normal/abnormal . NRBC x10^3 (test code See_Comment [Auto mated = 3999043090) message] The s ystem which generated this result transmitted reference range : 10*3/?L. The reference range was not used to interpret this result as normal/abnormal . GRAN MAT (NEUT) % 48.8 % (test code = 770-8) IMM GRAN % (test code 1.00 % = 3206845917) LYMPH % (test code = 34.6 % 736-9) MONO % (test code = 12.2 % 5905-5) EOS % (test code = 2.2 % 713-8) BASO % (test code = 1.2 % 706-2) GRAN MAT x10^3(ANC) 1.96 10*3/uL 1.99-6.95 L (test code = 1179126716) IMM GRAN x10^3 (test 0.04 10*3/uL 0-0.06 code = 5940699551) LYMPH x10^3 (test code 1.39 10*3/uL 1.09-3.23 = 731-0) MONO x10^3 (test code 0.49 10*3/uL 0.36-1.02 = 742-7) EOS x10^3 (test code = 0.09 10*3/uL 0.06-0.53 711-2) BASO x10^3 (test code 0.05 10*3/uL 0.01-0.09 = 704-7) RONNI CELLS (test code 2+ See_Comment A [Auto mated = 7790-9) message] The sy stem which generated this result transmitted reference range : (none). The reference range was not used to interpret this result as normal/abnormal . ELLIPTO/OVAL (test 2+ See_Comment A [Automat ed code = 41761-9) message] The system which generated this result transmitted reference range : (none). The reference range was not used to interpret this result as normal/abnormal . POLYCHROMASIA (test 2+ See_Comment [Automa jw code = 46670-1) message] The system which generated this result transmitted reference range : 2+. The referen ce range was not u sed to interpret th is result as normal/abnormal . SCHISTOCYTES (test 1+ A code = 800-3) REACT LYMPHS (test Rare code = 5705914116) Lab Interpretation Abnormal (test code = 15995-2) [id number] 18:15:21 Test Item Value Reference Range Interpretation Comments NT-proBNP (test code 274 pg/mL See_Comment H [Autom ated = 7895838433) message] The system which generated this result transmitted reference range : <=125. The reference range was not used to interpret this result as normal/abnormal . ANDREA (test code = ANDREA) Biotin has been reported to cause a negative bias, interpret results relative to patient's use of biotin. Lab Interpretation Abnormal (test code = 76227-6) [facility] WITH [id number] 18:55:42 Test Item Value Reference Range Interpretation Comments WBC (test code = See_Comment [Automated 1090-2) message] The sy stem which generated this result transmitted reference range : 4.20 - 10.70 10*3/?L. The reference range was not used to interpret this result as normal/abnormal . RBC (test code = See_Comment L [Automated 859-8) message] The sy stem which generated this result transmitted reference range : 4.26 - 5.52 10*6/?L. The reference range was not used to interpret this result as normal/abnormal . HGB (test code = 9.4 g/dL 12.2-16.4 L 718-7) HCT (test code = 30.6 % 38.4-49.3 L 4544-3) MCV (test code = 81.4 fL 81.7-95.6 L 787-2) MCH (test code = 25.0 pg 26.1-32.7 L 785-6) MCHC (test code = 30.7 g/dL 31.2-35 L 786-4) RDW-SD (test code = 51.9 fL 38.5-51.6 H 35843-4) RDW-CV (test code = 17.8 % 12.1-15.4 H 788-0) PLT (test code = See_Comment [Automated 777-3) message] The sy stem which generated this result transmitted reference range : 150 - 328 10*3/ ?L. The reference r bret was not used to interpret this result as normal/abnormal . MPV (test code = 11.6 fL 9.8-13 73121-1) NRBC/100 WBC (test See_Comment [Automat ed code = 4157235249) message] The system which generated this result transmitted reference range : 0.0 - 10.0 /100 WBCs. The refer ence range was not u sed to interpret th is result as normal/abnormal . NRBC x10^3 (test code See_Comment [Auto mated = 0725374001) message] The s ystem which generated this result transmitted reference range : 10*3/?L. The reference range was not used to interpret this result as normal/abnormal . GRAN MAT (NEUT) % 42.1 % (test code = 770-8) IMM GRAN % (test code 0.90 % = 4275211010) LYMPH % (test code = 37.6 % 736-9) MONO % (test code = 14.9 % 5905-5) EOS % (test code = 3.0 % 713-8) BASO % (test code = 1.5 % 706-2) GRAN MAT x10^3(ANC) 1.95 10*3/uL 1.99-6.95 L (test code = 8008253675) IMM GRAN x10^3 (test 0.04 10*3/uL 0-0.06 code = 7941324759) LYMPH x10^3 (test code 1.74 10*3/uL 1.09-3.23 = 731-0) MONO x10^3 (test code 0.69 10*3/uL 0.36-1.02 = 742-7) EOS x10^3 (test code = 0.14 10*3/uL 0.06-0.53 711-2) BASO x10^3 (test code 0.07 10*3/uL 0.01-0.09 = 704-7) ELLIPTO/OVAL (test 2+ See_Comment A [Automat ed code = 71258-4) message] The system which generated this result transmitted reference range : (none). The reference range was not used to interpret this result as normal/abnormal . POLYCHROMASIA (test 2+ See_Comment [Automa jw code = 22938-0) message] The system which generated this result transmitted reference range : 2+. The referen ce range was not u sed to interpret th is result as normal/abnormal . REACT LYMPHS (test Rare code = 4419427433) GIANT PLATELETS (test Present See_Comment A [Auto mated code = 5908-9) message] The system which generated this result transmitted reference range : (none). The reference range was not used to interpret this result as normal/abnormal . Lab Interpretation Abnormal (test code = 85048-6) [facility] [id number] 18:29:11 Test Item Value Reference Range Interpretation Comments APTT Patient (test See_Comment [Automat ed code = 3173-2) message] The system which generated this result transmitted reference range : 23 - 38 Seconds . The reference range was not used to interpr et this result as normal/abnormal . ANDREA (test code = ANDREA) The [facility] patient population mean normal value for aPTT is 30 seconds. Lab Interpretation Normal (test code = 67792-5) [facility] BrookPROTHROMBIN TIME / [id number] 18:26:49 Test Item Value Reference Range Interpretation Comments PROTIME PATIENT (test See_Comment [Auto mated message] code = 5964-2) The system wh ich generated this result transmitted ref erence range: 12.0 - 1 4.7 Seconds. The re ference range was not u sed to interpret this result as normal/abnor mal. INR (test code = 6301-6) Nor mal INR <1.1; Warfarin Therap eutic range 2.0 to 3. 0 or 2.5 to 3.5, dep ending upon the indica tions. Lab Interpretation (test Normal code = 59100-1) [facility] BrookTROP[facility] [id number] 18:14:50 Test Item Value Reference Interpretation Comments Range TROPONIN I (test 0.013 ng/mL See_Comment [Automated code = 1186470980) message] The system which generated this result transmitted reference range : <=0.034. The reference range was not used to interpret this result as normal/abnormal . ANDREA (test code = Reference (Normal) ANDREA) Range (defined by the 99th percentile reference limit): <= 0.034 ng/mL Note: Cardiac troponin begins to rise 3-4 hours after the onset of ischemia. Repeat in 4-6 hours if the sample was drawn within 3-4 hours of the onset of the symptom and found normal. Diagnosis of myocardial injury is made with acute changes in cTn concentrations with at least one serial sample above the 99th percentile upper reference limit (URL), taken together with the patient's clinical presentation. Biotin has been reported to cause a negative bias, interpret results relative to patient's use of biotin. Lab Interpretation Normal (test code = 03702-0) [facility] BrookN-TERMINAL [id number] 18:11:48 Test Item Value Reference Range Interpretation Comments NT-proBNP (test code 286 pg/mL See_Comment H [Autom ated = 9061744968) message] The system which generated this result transmitted reference range : <=125. The reference range was not used to interpret this result as normal/abnormal . ANDREA (test code = ANDREA) Biotin has been reported to cause a negative bias, interpret results relative to patient's use of biotin. Lab Interpretation Abnormal (test code = 46908-6) [facility] BrookCOMP. METABOLIC PANEL (16442)[id number] 18:03:05 Test Item Value Reference Range Interpretation Comments NA (test code = 133 mmol/L 135-145 L 5952191429) K (test code = 5.1 mmol/L 3.5-5 H 5291763941) CL (test code = 101 mmol/L 98-108 4747220290) CO2 TOTAL (test code = 26 mmol/L 23-31 1213918190) AGAP (test code = 2-16 1107796509) BUN (test code = 16 mg/dL 7-23 5593211115) GLUCOSE (test code = 93 mg/dL 70-110 5407895834) CREATININE (test code = 0.85 mg/dL 0.6-1.25 4875645093) TOTAL BILI (test code = 0.8 mg/dL 0.1-1.6 9937433095) CALCIUM (test code = 8.4 mg/dL 8.6-10.6 L 4139736429) T PROTEIN (test code = 7.0 g/dL 6.3-8.2 4321027641) ALBUMIN (test code = 4.2 g/dL 3.5-5 5944994281) ALK PHOS (test code = 73 U/L 34-122 4861963442) ALTv (test code = 15 U/L 5-50 1742-6) AST(SGOT) (test code = 40 U/L 13-40 6993824847) eGFR (test code = mL/min/1.73m2 6014074226) ANDREA (test code = ANDREA) Association of Glomerular Filtration Rate (GFR) and Staging of Kidney Disease* + --+ --+ ------+| GFR (mL/min/1.73 m2) ?| With Kidney Damage ?| ?Without Kidney Damage+ --------+ --------+ +| ?>90 ?| ?Stage one ?| ? Normal ?+ ---+ ---+ -------+| ?60-89 ?| ?Stage two ?| ? Decreased GFR ? + --+ --+ ------+| ?30-59 ?| ?Stage three ?| ? Stage three ? + --+ --+ ------+| ?15-29 ?| ?Stage four ? | ? Stage four ?+ ---+ ---+ -------+| ?<15 (or dialysis) ? ?| ?Stage five ? | ? Stage five ?+ ---+ ---+ -------+ *Each stage assumes the associated GFR level has been in effect for at least three months. ?Stages 1 to 5, with or without kidney disease, indicate chronic kidney disease. Notes: Determination of stages one and two (with eGFR >59mL/min/1.73 m2) requires estimation of kidney damage for at least three months as defined by structural or functional abnormalities of the kidney, manifested by either:Pathological abnormalities or Markers of kidney damage (including abnormalities in the composition of the blood or urine or abnormalities in imaging tests). Lab Interpretation Abnormal (test code = 19718-5) [facility]ASE2022-[facility] 18:02:25 Test Item Value Reference Range Interpretation Comments LIPASE (test code = 5869387167) 98 U/L 0-220 Lab Interpretation (test code = Normal 93684-0) [facility] WITH [id number] 20:51:06 Test Item Value Reference Range Interpretation Comments WBC (test code = See_Comment [Automated 6690-2) message] The sy stem which generated this result transmitted reference range : 4.20 - 10.70 10*3/?L. The reference range was not used to interpret this result as normal/abnormal . RBC (test code = See_Comment L [Automated 789-8) message] The sy stem which generated this result transmitted reference range : 4.26 - 5.52 10*6/?L. The reference range was not used to interpret this result as normal/abnormal . HGB (test code = 10.9 g/dL 12.2-16.4 L 718-7) HCT (test code = 33.3 % 38.4-49.3 L 4544-3) MCV (test code = 89.5 fL 81.7-95.6 787-2) MCH (test code = 29.3 pg 26.1-32.7 785-6) MCHC (test code = 32.7 g/dL 31.2-35.0 786-4) RDW-SD (test code = 51.9 fL 38.5-51.6 H 86587-6) RDW-CV (test code = 15.9 % 12.1-15.4 H 788-0) PLT (test code = See_Comment [Automated 777-3) message] The sy stem which generated this result transmitted reference range : 150 - 328 10*3/ ?L. The reference r bret was not used to interpret this result as normal/abnormal . MPV (test code = 12.1 fL 9.8-13.0 16801-2) NRBC/100 WBC (test See_Comment [Automat ed code = 6783162398) message] The system which generated this result transmitted reference range : 0.0 - 10.0 /100 WBCs. The refer ence range was not u sed to interpret th is result as normal/abnormal . NRBC x10^3 (test code <0.01 See_Comment [Auto mated = 9441244583) message] The s ystem which generated this result transmitted reference range : 10*3/?L. The reference range was not used to interpret this result as normal/abnormal . SEG % (test code = 44 % 33-76 92578-0) BAND % (test code = 6 % 0-1 H 03890-0) LYMPH % (test code = 30 % 14-54 29621-1) REACT LYMPH % (test 3 % code = 7466119720) MONO % (test code = 12 % 0-4 H 36499-0) EOS % (test code = 5 % 0-3 H 69777-6) ANC (test code = 2.75 10*3/uL 1.99-6.95 753-4) Lab Interpretation Abnormal (test code = 24772-8) [facility]TROP[facility] [id number] 20:40:44 Test Item Value Reference Interpretation Comments Range TROPONIN I (test 0.009 ng/mL See_Comment [Automated code = 4384646974) message] The system which generated this result transmitted reference range : <=0.034. The reference range was not used to interpret this result as normal/abnormal . ANDREA (test code = Reference (Normal) ANDREA) Range (defined by the 99th percentile reference limit): <= 0.034 ng/mL Note: Cardiac troponin begins to rise 3-4 hours after the onset of ischemia. Repeat in 4-6 hours if the sample was drawn within 3-4 hours of the onset of the symptom and found normal. Diagnosis of myocardial injury is made with acute changes in cTn concentrations with at least one serial sample above the 99th percentile upper reference limit (URL), taken together with the patient's clinical presentation. Biotin has been reported to cause a negative bias, interpret results relative to patient's use of biotin. Lab Interpretation Normal (test code = 48613-1) [facility] BrookCOM. METABOLIC PANEL (10500)2021-08-31 20:29:46 Test Item Value Reference Range Interpretation Comments NA (test code = 137 mmol/L 135-145 2142722511) K (test code = 5.0 mmol/L 3.5-5.0 8711332518) CL (test code = 101 mmol/L 98-108 0300219882) CO2 TOTAL (test code = 25 mmol/L 23-31 0554181043) AGAP (test code = 2-16 8057674366) BUN (test code = 14 mg/dL 7-23 7159571986) GLUCOSE (test code = 113 mg/dL 70-110 H 1319804327) CREATININE (test code = 0.82 mg/dL 0.60-1.25 5528257474) TOTAL BILI (test code = 0.4 mg/dL 0.1-1.2 1816258624) CALCIUM (test code = 9.4 mg/dL 8.6-10.6 4632701339) T PROTEIN (test code = 7.5 g/dL 6.3-8.2 5757721925) ALBUMIN (test code = 4.5 g/dL 3.5-5.0 4424951986) ALK PHOS (test code = 101 U/L 34-122 3342317800) ALTv (test code = 15 U/L 5-50 2-6) AST(SGOT) (test code = 25 U/L 13-40 7769749605) eGFR (test code = mL/min/1.73m2 2603664470) ANDREA (test code = ANDREA) Association of Glomerular Filtration Rate (GFR) and Staging of Kidney Disease* + --+ --+ ------+| GFR (mL/min/1.73 m2) ?| With Kidney Damage ?| ?Without Kidney Damage+ --------+ --------+ +| ?>90 ?| ?Stage one ?| ? Normal ?+ ---+ ---+ -------+| ?60-89 ?| ?Stage two ?| ? Decreased GFR ? + --+ --+ ------+| ?30-59 ?| ?Stage three ?| ? Stage three ? + --+ --+ ------+| ?15-29 ?| ?Stage four ? | ? Stage four ?+ ---+ ---+ -------+| ?<15 (or dialysis) ? ?| ?Stage five ? | ? Stage five ?+ ---+ ---+ -------+ *Each stage assumes the associated GFR level has been in effect for at least three months. ?Stages 1 to 5, with or without kidney disease, indicate chronic kidney disease. Notes: Determination of stages one and two (with eGFR >59mL/min/1.73 m2) requires estimation of kidney damage for at least three months as defined by structural or functional abnormalities of the kidney, manifested by either:Pathological abnormalities or Markers of kidney damage (including abnormalities in the composition of the blood or urine or abnormalities in imaging tests). Lab Interpretation Abnormal (test code = 37956-9) [facility]20[facility] 20:29:06 Test Item Value Reference Range Interpretation Comments LIPASE (test code = 7903607587) 100 U/L 0-220 Lab Interpretation (test code = Normal 93852-7) [facility] BrookLactic Acid Whole [id number] 20:17:03 Test Item Value Reference Range Interpretation Comments LACTIC ACID (test code = 1.45 mmol/L 0.50-2.20 0575131607) Lab Interpretation (test code = Normal 05517-9) [facility] BrookCOVID-[facility] (ID NOW RAPID TESTING)2019-09-05 15:05:00 Test Item Value Reference Range Interpretation Comments SARS-CoV-2 Rapid ID NOW Not Detected Not Detected (test code = 02466-4) ANDREA (test code = ANDREA) ID NOW COVID-19 Assay is an isothermal nucleic acid amplification test intended for the qualitative detection of nucleic acid from SARS-CoV-2 viral RNA in nasopharyngeal (BODY AND FRAME MAN) specimens. It is used under Emergency Use Authorization (EUA) by FDA. The limit of detection (LOD) of the assay is 125 Genome Equivalents/mL. A positive result is indicative of the presence of SARS-CoV-2 RNA. ?Clinical correlation with patient history and other diagnostic information is necessary to determine patient infection status. A negative (Not Detected) result does not preclude SARS-CoV-2 infection. In patients with clinical symptoms and other tests that are consistent with SARS-CoV-2 infection, negative results should be treated as presumptive negative and a new specimen should be tested with alternative PCR molecular test. Invalid: Please collect a new specimen for repeat patient testing if clinically indicated. Lab Interpretation Normal (test code = 08995-2) [facility] BrookEKG2020-03-13 13:59:00HEART RATE: 60 bpmRR Interval: 1000 msAtrial Rate: 60 msP-R Interval: 108 msP Duration: 80 msP Horizo ntal [place]: 250 degP Front [place]: degQ Onset: 499 msQRSD Interval: 90 msQT Interval: 403 msQTcB: 403 msQTcF: 403 msQRS Horizontal [place]: 8 degQRS [place]: 27 degI-40 Horizontal [place]: 38 degI-40 Front [place]: 59 degT-40 Horizontal [place]: -22 degT-40 Front [place]: 21 degT Horizontal [place]: 87 degT Wave [place]: 96 degS-T Horizontal [place]: 144 degS-T Front [place]: 190 degECG Severity: - ABNORMAL ECG -ECG Impression: Atrial-paced rhythmECG Impression: Nonspecific repol abnormality, lateral glaxcHYY5532-54-71 11:03:00HEART RATE: 60 bpmRR Interval: 1000 msAtrial Rate: 60 msP-R Interval: 177 msP Duration: 133 msP Horizontal [place]: 255 degP Front [place]: degQ Onset: 502 msQRSD Interval: 87 msQT Interval: 394 msQTcB: 394 m sQTcF: 394 msQRS Horizontal [place]: -1 degQRS [place]: 20 degI-40 Horizontal [place]: 16 degI-40 Front [place]:37 degT-40 Horizontal [place]: -37 degT-40 Front [place]: 9 degT Horizontal [place]: 86 degT Wave [place]: 68 degS-T Horizontal [place]: 124 degS-T Front [place]: 256 degECG Severity: - ABNORMAL ECG -ECG Impression: Atrial-paced rhythm CTA [id number] 15:11:[address] [address]NIJXVAKEJE IMAGING REPORTPatient Name: Tyron PENA of Service: [id number]: 69 Sex: M Order #: [id number] [facility]: [facility] 4SDOB: 1950 X-Ray Number: [id number] Record Number: [id number] Hospital Number: [id number] Physician: Luis GUTIÉRREZing Physician: ANDERSON LAW head and neck angiogram.History: Syncope and collapseComparison: CT head 05/15/2019Technique: IV contrast enhanced CT images of the head and neck wereperformed with sagittal and coronal reformatted images as well as 3-D MIPSimages. This CTexam was performed using one or more of the following dosereduction techniques: Automated exposure control, adjustment of the MAand/or KV according to patient size or use of iterative reconstructiontech nique.Findings:Right: The right common carotid artery is atherosclerotic and patent. Theright internal carotid artery is patent with atherosclerotic calcificationsat its origin leading to abaqkooerlaxj95% diameter stenosis. The petrous,cervical and cavernous portions of the right internal carotid artery arepatent. There are atherosclerotic calcifications of the cavernous portionof the right internalcarotid artery.Left: The left common carotid artery is [...] arteries are patent.Each of the posterior cerebral arteriesare patent.The basilar artery is patent.There are postsurgical [...] cm opacity at theright apex which may bedue to scarring. Further evaluation with adedicated chest CT is recommended for further evaluation.Electronically Signed By: Sebastian Pineda M.D., 05/16/2019 3:08 PMLegally authenticated by VENKATA GARCIA JR 2019-05-16 15:08:55CTA [id number] 15:11:[address] [place], [place] [address]LTZYWHLHQG IMAGING REPORTPatient Name: Tyron PENA of Service: [id number]: 69 Sex: M Order #: [id number] Room: [facility] A 4SDOB: 1950 X-Ray Number: [id number] Record Number: [id number] Hospital Number: [id number] Physician: TAYE GUTIÉRREZOrdering Physician: ANDERSON LAW head and neck angiogram.History: Syncope and collapseComparison: CT head 05/15/2019Technique: IV contrast enhanced CT images of the head and neck wereperformed with sagittal and coronal reformatted images as well as 3-D MIPSimages. This CTexam was performed using one or more of the following dosereduction techniques: Automated exposure control, adjustment of the MAand/or KV according to patient size or use of iterative reconstructiontech nique.Findings:Right: The right common carotid artery is atherosclerotic and patent. Theright internal carotid artery is patent with atherosclerotic calcificationsat its origin leading to hmozuhdgoxdiw04% diameter stenosis. The petrous,cervical and cavernous portions of the right internal carotid artery arepatent. There are atherosclerotic calcifications of the cavernous portionof the right internalcarotid artery.Left: The left common carotid artery is [...] arteries are patent.Each of the posterior cerebral arteriesare patent.The basilar artery is patent.There are postsurgical [...] cm opacity at theright apex which may bedue to scarring. Further evaluation with adedicated chest CT is recommended for further evaluation.Electronically Signed By: Sebastian Pineda M.D., 05/16/2019 3:08 PMLegally authenticated by VENKATA GARCIA JR 2019-05-16 15:08:55BMP, BASIC METABOLIC [id number] 05:47:00 Test Item Value Reference Range Interpretation Comments SODIUM (test code = 137 MMOL/L 137-145 NA) K+ (test code = 4.1 MMOL/L 3.5-5.1 PLEASE NOTE NEW KSERUM) REFERENCE RANGE (S) IN EFFECT EFFECTIVE 010 - NEW ANALYZER (V ITROS 5600) CHLORIDE (test code 102 MMOL/L 98-107 = CL) CO2 (test code = 28 MMOL/L 22-30 CO2) BUN (test code = 16 MG/DL 9-20 BUN) CREA (test code = 0.9 MG/DL 0.8-1.5 CREA) GLUCOSE (test code 96 MG/DL 70-99 Fasting glucose = GLUCOSE) normal <100 MG/ DL- [place] [employer] recommendation* * CALCIUM (test code 9.0 MG/DL 8.4-10.2 = CABLOOD) GFR (test code = 89 A GFR of >9 0 GFR) mL/min/1.73m2 mL/min/1.73m2 is considered norm al. [id number] 05:47:00 Test Item Value Reference Range Interpretation Comments MG (test code = MG) 2.0 mg/dL 1.6-2.3 LIPID [id number] 05:47:00 Test Item Value Reference Range Interpretation [...] = 84 MG/DL <100 CALC LDL) DIRECT [id number] 05:47:00 Test Item Value Reference Range Interpretation Comments DIR LDL (test code = LDL) 103 MG/DL 0-<100 H PROBRAIN NATRIURETIC [id number] 05:45:00 Test Item Value Reference Range Interpretation Comments NT-PROBNP (test code 175 pg/mL Exclusi on for heart = PROBNP) failure for pat ients of all ages is 300 pg/mL. Inclusion for h eart failure for pat ients age <50 is 450 pg/m L; for patients age 50 -75 is 900 pg/mL; for patients age >75 is 1800 pg/mL. [id number] 05:30:00 Test Item Value Reference Range Interpretation [...] (test code 2.7 K/UL 1.2-7.2 = NEUT) [id number] 13:52:00 Test Item Value Reference Range Interpretation [...] 1.000-1.025 UAMICRO (test code = UAMICRO) NO [id number] 12:26:00 Test Item Value Reference Range Interpretation Comments BLOOD TYPE (test O Rh Positive Comment for code = TYPE) Female s Rhogam may be indicated for patient dependi ng baby's Rh statu s. ANTIBODY SCREEN NEGATIVE NEGATIVE (test code = SCREEN) [id number] 11:56:00 Test Item Value Reference Range Interpretation Comments %CKMB (test code = %MB) 0.4 % CKMB (test code = CKMB) 0.3 NG/ML 0.22-2.4 CK (test code = CK) 69 U/L 55-170 CKINTERP (test code = NEGATIVE Negative CKINTERP) BMP, BASIC METABOLIC [id number] 11:52:00 Test Item Value Reference Range Interpretation [...] glucose = GLUCOSE) normal <100 MG/ DL- [place] [employer] recommendation* * CALCIUM (test code 9.1 MG/DL 8.4-10.2 = CABLOOD) GFR (test code = 89 A GFR of >9 0 GFR) mL/min/1.73m2 mL/min/1.73m2 is considered norm al. [id number] 11:50:00 Test Item Value Reference Range Interpretation Comments PTT (test code = 24.9 SECONDS 25.0-36.5 L HEPARIN THE RAPEUTIC PTT) RANGE 57-92 SEC ONDS PROTHROMBIN TIME WITH [id number] 11:50:00 Test Item Value Reference Range Interpretation Comments PROTHROMBIN TIME 13.0 SECONDS 10.1-12.7 H INR Usual R bret = 2 (test code = PT) to 3 for pr evention of deep vein thrombosis (DVT ) INR (test code = INR) 1.1 [id number] 11:49:00 Test Item Value Reference Range Interpretation [...] code 3.9 K/UL 1.2-7.2 = NEUT) TROPONIN [id number] 11:15:00 Test Item Value Reference Range Interpretation Comments TROPER (test code = 0.01 NG/ML 0.0-0.08 INTE RPRETIVE TROPER) DATA A POC T ROPONIN OF </= 0.08 NG/ ML IS CONSIDERED NEGA TIVE CHEST 1 VIEW [id number] 11:13:[address] [id number] IMAGING REPORTPatient Name: MAURICE EPNADate of Service: [id number]: 69 Sex: M Order #: [id number] Room: [facility]: X-Ray Number: [id number] Record Number: [id number] Hospital Number: [id number] Physician: Ernestina MANCUSO Physician: Haresh MANCUSO.05/15/2019 11:08 AMHistory: Hypertension.Technique: Single AP chest projection.Findings: Single chest projection demonstrates normal heart size and clearlungs. The osseous structures appear intact. Pacemaking device lead wiresappear intact.Impression:No acute-appearing cardiopulmonary abnormalities.Electronically Signed By: Kevin Nolasco M.D., 05/15/2019 11:11 AMLegally authenticated by QUINTEN Stokes 2019-05-15 11:11:07CT HEAD W/O CONT 2019-05-15 11:12:[address] [id number] IMAGING REPORTPatient Name: Tyron PENA of Service: [id number]: 69 Sex: M Order #: [id number] Room: ERDOB: 1950 X- Ray Number: [id number] Record Number: [id number] Hospital Number: [id number] Physician: RED MANCUSOOrdering Physician: KRISTINA MANCUSO HEAD:HISTORY: Declining state.TECHNIQUE: Unenhanced CT axial images of the brain with sagittal andcoronal reformatted images.This CT exam was performed using one or more of the following dosereduction techniques: Automated exposure control, adjustmentof the MAand/or KV according to patient size or use of iterative reconstructiontechnique.FINDINGS: CT head images demonstrate no acute appearing intracranialabnormalities. The ventricles are symmetric and midline. The sosa- whitematter differentiation is intact. The calvarium appears intact.IMPRESSION:N o acute appearing intracranial abnormalities.Electronically Signed By: Kevin Nolasco M.D., 05/15/2019 11:10 AMLegally authenticated by QUINTEN Stokes 2019-05-15 11:10:40BMP, BASIC METABOLIC [id number] 07:54:00 Test Item Value Reference Range Interpretation [...] glucose = GLUCOSE) normal <100 MG/ DL- [place] [employer] recommendation* * CALCIUM (test code 9.0 MG/DL 8.4-10.2 = CABLOOD) GFR (test code = 79 A GFR of >9 0 GFR) mL/min/1.73m2 mL/min/1.73m2 is considered norm al. [id number] 06:50:00 Test Item Value Reference Range Interpretation [...] (test code 2.1 K/UL 1.2-7.2 = NEUT) [id number] 05:11:00 Test Item Value Reference Range Interpretation [...] K/UL 1.2-7.2 = NEUT) PROTHROMBIN TIME WITH [id number] 03:45:00 Test Item Value Reference Range Interpretation Comments PROTHROMBIN TIME 13.3 SECONDS 10.1-12.7 H INR Usual R bret = 2 (test code = PT) to 3 for pr evention of deep vein thrombosis (DVT ) INR (test code = INR) 1.2 [id number] 03:45:00 Test Item Value Reference Range Interpretation Comments PTT (test code = 25.2 SECONDS 25.0-36.5 HEPARIN THE RAPEUTIC PTT) RANGE 57-92 SEC ONDS BMP, BASIC METABOLIC [id number] 03:45:00 Test Item Value Reference Range Interpretation [...] glucose = GLUCOSE) normal <100 MG/ DL- [employer] recommendation* * CALCIUM (test code 8.6 MG/DL 8.4-10.2 = CABLOOD) GFR (test code = 89 A GFR of >9 0 GFR) mL/min/1.73m2 mL/min/1.73m2 is considered norm al. [id number] 03:45:00 Test Item Value Reference Range Interpretation Comments MG (test code = MG) 1.9 mg/dL 1.6-2.3 [id number] 03:45:00 Test Item Value Reference Range Interpretation Comments PHOSPHOR (test code = PHOSPHOR) 3.3 MG/DL 2.5-4.5 [id number] 03:38:00 Test Item Value Reference Range Interpretation [...] code 2.2 K/UL 1.2-7.2 = NEUT) TROPONIN [id number] 20:10:00 Test Item Value Reference Range Interpretation Comments TROPER (test code = 0.00 NG/ML 0.0-0.08 INTE RPRETIVE TROPER) DATA A POC T ROPONIN OF </= 0.08 NG/ ML IS CONSIDERED NEGA TIVE HEPATITIS C ANTIBODY [id number] 19:13:00 Test Item Value Reference Range Interpretation [...] and confirmation re sults will follow. D-DIMER, [id number] 18:51:00 Test Item Value Reference Range Interpretation Comments D-DIMER (test 407 ng/mL (FEU) 0-500 VALUES OF Q UANTITATIVE code = DDIMER) D-DIMER LESS THAN 499 ng/mL HAVE BEEN REPORTED TO BE ASSOCIATED WITH A LOW PROBABILITY OF DEEP VEIN THROMBOSIS/PULM ONARYEMB OLISM. THIS GARCÍA T ALONE SHOULD NOT BE U SED TO RULE OUT DVT/PE . CHEST 1 VIEW [id number] 18:05:00[facility] [place], [place] [address]BTYAYADRFD IMAGING REPORTPatient Name: Tyron PENA of Service: [id number]: 69 Sex: M Order #: [id number] Room: [facility]: [facility] X-Ray Number: [id number] Record Number: [id number] Hospital Number: [id number] Physician: DEDRA HUYNH TANOrdering Physician: LAUREL CODY 1 VIEW PORTABLE 05/13/2019 5:46 PMHistory: Chest Pain without Trauma/Injury, hypertension, OR, CAD, coronarystents.Comparisons: None Availa ble.FINDINGS:Heart size is normal.There is no focal lung consolidation.There is no definite pleural effusion or pneumothorax identified.Hyperinflation suggests COPD.There is apical pleural thickening bilaterally.Left-sided pacemaker is in good position.IMPRESSION:No acute cardiopulmonary process.Electronically Signed By: Cameron Amaya M.D., 05/13/2019 6:03 PMLegally authenticated by ORLANDO DOWNS 2019-05-13 18:03:07PROBRAIN NATRIURETIC [id number] 17:38:00 Test Item Value Reference Range Interpretation Comments NT-PROBNP (test code 151 pg/mL Exclusi on for heart = PROBNP) failure for pat ients of all ages is 300 pg/mL. Inclusion for h eart failure for pat ients age <50 is 450 pg/m L; for patients age 50 -75 is 900 pg/mL; for patients age >75 is 1800 pg/mL. [id number] 17:38:00 Test Item Value Reference Range Interpretation Comments %CKMB (test code = %MB) 0.7 % CKMB (test code = CKMB) 0.8 NG/ML 0.22-2.4 CK (test code = CK) 110 U/L 55-170 CKINTERP (test code = NEGATIVE Negative CKINTERP) BMP, BASIC METABOLIC [id number] 17:38:00 Test Item Value Reference Range Interpretation [...] glucose = GLUCOSE) normal <100 MG/ DL- [place] [employer] recommendation* * CALCIUM (test code 9.5 MG/DL 8.4-10.2 = CABLOOD) GFR (test code = 79 A GFR of >9 0 GFR) mL/min/1.73m2 mL/min/1.73m2 is considered norm al. [id number] 17:19:00 Test Item Value Reference Range Interpretation [...] code 3.0 K/UL 1.2-7.2 = NEUT) TROPONIN [id number] 17:15:00 Test Item Value Reference Range Interpretation Comments TROPER (test code = 0.01 NG/ML 0.0-0.08 INTE RPRETIVE TROPER) DATA A POC T ROPONIN OF </= 0.08 NG/ ML IS CONSIDERED NEGA TIVE [id number] 05:42:00 Test Item Value Reference Range Interpretation Comments MAGNESIUM (BEAKER) (test code = 1.9 mg/dL 1.6-2.6 627) BASIC METABOLIC [id number] 05:42:00 Test Item Value Reference Range Interpretation [...] 697) EGFR (BEAKER) (test 91 mL/min/1.73 ESTIMA JW GFR IS code = 1092) sq m NOT ACCURATE CREATININE CLEARANCE IN PREDICTING GLOMERULAR FILTRATION RATE . ESTIMATED GFR I S NOT APPLICABLE FOR DIALYSIS PATIEN TS. CBC W/PLT COUNT & AUTO [id number] 04:43:00 Test Item Value Reference Range Interpretation [...] 0-1 PERCENT (BEAKER) (test code = 2801) [id number] 19:48:00 Test Item Value Reference Range Interpretation Comments ACTIVATED CLOTTING TIME 158 sec TEST ED AT [facility] [address] ([facility]) (test code = NILESH Sims [facility] 441) [address] [id number] 09:20:00 Test Item Value Reference Range Interpretation Comments PARTIAL THROMBOPLASTIN TIME 76.2 seconds 22.5-36.0 H (BEAKER) (test code = 760) CREATINE KINASE (CK)2018-04-08 07:02:00 Test Item Value Reference Range Interpretation Comments CREATINE KINASE TOTAL (BEAKER) (test 74 U/L 29-200 code = 380) LACTIC ACID, VENOUS, WHOLE [id number] 06:56:00 Test Item Value Reference Range Interpretation Comments LACTATE BLOOD VENOUS (2) (BEAKER) 1.1 mmol/L 0.5-2.2 (test code = 2872) NERVE CONDUCTION STUDIES; 3-4 [id number] 06:53:00Select Extremity- >Right Leg Reason for exam:->painB[facility] CenterNeurophysiology DepartmentELECTROMYOGRAPHY / NERVE CONDUCTION STUDY [address] [place] [address] Name: Maurice Pena : Date of : 1950 Gender: Male Date of Exam: 04/07/2018 4:30 PMReferring Physician:Carole Chow Physician: Melody Benavidez Patient History: Patient presents with a 1 monthhistory of pain in posterior calf, he denies any numbness/tingling or weakness, or low-back pain. Onexam, he has 5/5 strength except knee flexion which is limited by pain. This study was done to evaluate for nerve entrapment or radiculopathy.Motor Nerve Conduction:Nerve and Site Latency Amplitude Segment LatencyDifference Distance ConductionVelocityPeroneal.RAnkle 4.3 ms 4.9 mV Extensor digitorum brevis-Ankle 4.3 ms Fibula (head) 11.6 ms 4.2 mV Ankle-Fibula (head) 7.3 ms 275 mm 38 m/sKnee 14.6 ms 5.1 mV Fibula (head)-Knee 3.0 ms 120 mm 40 m/sTibial.RAnkle 3.9 ms 5.1 mV Abductor hallucis-Ankle 3.9 ms Popliteal fossa 15.0 ms 3.1 mV Ankle-Popliteal fossa 11.1 ms 440 mm 40 m/sF-Wave StudiesNerve M-Latency F-LatencyPeroneal.R 14.6 53.0Tibial.R 15.0 57.3Sensory Nerve Conduction:Nerve and Site Onset Latency PeakLatency Amplitude Segment LatencyDifference Distance ConductionVelocitySural.RLower leg 2.9ms 3.7 ms 12 품V Ankle-Lower leg 2.9 ms 140 mm 48 m/sNeedle EMG Examination: Insertional Spontaneous Activity Volitional MUAPsMuscle Insertional Fibs +Wave Fasc Duration Amplitude Poly Pattern EffortTibialis anterior.R Normal None None None Normal Normal None Normal Max.Gastrocnemius (Medialhead).R Normal None None None Normal Normal None Normal Max.Vastus medialis.R Normal None None None Normal Normal None Normal Max.Semimembranosus.R Normal None None None Normal Normal None Normal Max.Gl uteus medius.R Normal None None None Normal Normal None Normal Max.Summary of findings: 1. Sensory studies of the right sural nerve showed normal findings.2. Motor studies of the right peroneal and tibial nerves showed normal findings. F- wave latencies were normal.3. Electromyography of the right lower limb was done using a disposable concentric needle. There was no abnormal spontaneous activity. Allmuscles tested showed normal MUAP morphologies and recruitment patterns.Conclusions: This is a normal electrodiagnostic study. There is no electrophysiologic evidence of large-fiber peripheral neuropathy, nerve entrapment or denervation in the right lower limb. Melody Benavidez M.D. [id number] 03:03:00 Test Item Value Reference Range Interpretation Comments PARTIAL THROMBOPLASTIN TIME 82.1 seconds 22.5-36.0 H (BEAKER) (test code = 760) CT, CTA AAA, W/ SAMMY.EXT.[id number] 16:54:00Addendum BeginsREPORT STATUS:A Addendum: I agree with the previously described non vascular findings. Signed: Krissy Angel MDReport Verified Date/Time: 04/07/2018 16:54:33 Reading Location: [place] [address] Angio Body Reading RoomAddendum EndsFINAL REPORT CT [...] degree of left and right atrial prominence. Coronaryartery calcification is seen in all three distal [...] graft is widely patent with no anastomotic stenosis.The left SFA has eccentric calcific and noncalcific atherosclerosis identified. Representing mild diffuse disease, with no obstructive lesion identified. The left profunda system is unremarkable. The le ft popliteal artery is also unremarkable with minimal nonobstructive calcification identified. In the left lower extremity, the left tibioperoneal trunk is patent with no obstructive lesion identified.The left anterior tibial artery is patent but is a small calibre vessel. The left peroneal artery radha small calibre vessel. The left posterior tibial artery is widely patent and the plantar arch is well seen distally. In the right, the right SFA has scattered nonobstructive calcific and noncalcific atherosclerosis proximally and no stenosis is appreciated. The right profunda system is unremarkable. The right popliteal artery is also widely patent. The right tibioperoneal trunk is widely patent. Theright anterior tibial artery is patent though become a small calibre vessel distally. The right peroneal artery is a tiny calibre vessel. The right posterior tibial artery is dominant vessel and is widely patent and plantar arch is seen distally. NON-VASCULAR: The lung bases are unremarkable. Some dependent changes are seen in the lung bases. No pleural effusions identified. In the abdomen, the liverand spleen appears unremarkable. The liver edge is [...] 1. The abdominal aorta is normal in course,calibre and contour. Mild atherosclerosis identified. No ectasia [...] iliac artery extending into the right external iliacartery with no in-stent stenosis identified. Remainder of the right pelvic arteries are unremarkable. 3. The SFA, profunda, and the popliteal arteries, bilaterally, are patent with minimal atherosclerosis identified and no obstructive lesion is seen. 4. Details of the runoff vessels as described above. 5. Other findings as described above. Hepatic steatosis. 6. An addendum will be dictated regarding the non-vascular findings by the Housekeeper Child Care Radiologist. Signed: Steve Musa Verified Da te/Time: 04/07/2018 15:32:19 Reading Location: [place] [address] Cardiology MRI TROPONIN I 2018-04-07 11:39:00 Test Item Value Reference Range Interpretation [...] acute neurological disease, and persistent tachyarrhythmia.BASIC METABOLIC [id number] 16:14:00 Test Item Value Reference Range Interpretation [...] 697) EGFR (BEAKER) (test 72 mL/min/1.73 ESTIMA JW GFR IS code = 1092) sq m NOT ACCURATE CREATININE CLEARANCE IN PREDICTING GLOMERULAR FILTRATION RATE . ESTIMATED GFR I S NOT APPLICABLE FOR DIALYSIS PATIEN TS. [id number] 16:05:00 Test Item Value Reference Range Interpretation Comments PROTIME (BEAKER) (test code = 13.8 seconds 11.7-14.7 759) INR (BEAKER) (test code = 370) 1.1 <=5.9 PARTIAL THROMBOPLASTIN TIME 31.6 seconds 22.5-36.0 (BEAKER) (test code = 760) RECOMMENDED COUMADIN/WARFARIN INR THERAPY RANGESSTANDARD DOSE: 2.0 - 3.0 Includes: PROPHYLAXIS for venous thrombosis, systemic embolization; TREATMENT for venous thrombosis and/or pulmonary embolus.HIGH RISK: Target INR is 2.5-3.5 for patients with mechanical heart valves.CBC W/PLT COUNT & AUTO [id number] 15:56:00 Test Item Value Reference Range Interpretation [...] 0-1 PERCENT (BEAKER) (test code = 2801) [id number] 07:14:00 Test Item Value Reference Range Interpretation Comments Potassium Lvl (test code = Potassium 3.9 3.5-5.1 Lvl) [facility] CenterScuktycRGYIRHWLPOJT6500-06-14 07:14:00 Test Item Value Reference Range Interpretation Comments AGAP (test code = AGAP) 11.9 10.0-20.0 [facility] CenterDuclbrrIUSHOPQLEGRN6038-76-10 07:14:00 Test Item Value Reference Range Interpretation Comments eGFR (test code = eGFR) 96 [facility] Center[id number] 07:14:00 Test Item Value Reference Range Interpretation Comments BUN (test code = BUN) 17 7-22 [facility] CenterRoryhcmLYBEVQPAKCNA2509-16-12 07:14:00 Test Item Value Reference Range Interpretation Comments Glucose Lvl (test code = Glucose Lvl) 79 70-99 [facility] Center[id number] 07:14:00 Test Item Value Reference Range Interpretation Comments Calcium Lvl (test code = Calcium Lvl) 7.6 8.5-10.5 [facility] CenterYptqqpqGJTTSAMSTULO1966-11-70 07:14:00 Test Item Value Reference Range Interpretation Comments Chloride Lvl (test code = Chloride Lvl) 108 95-109 [facility] CenterSkskhwuCITAMOKRZZRF8154-91-08 07:14:00 Test Item Value Reference Range Interpretation Comments Potassium Lvl (test code = Potassium 3.9 3.5-5.1 Lvl) [facility] CenterKqypltaCBMIUIOWZBGL5355-28-55 07:14:00 Test Item Value Reference Range Interpretation Comments Sodium Lvl (test code = Sodium Lvl) 140 135-145 [facility] CenterTdsdeshLIBRIJZASFPH5696-28-72 07:14:00 Test Item Value Reference Range Interpretation Comments Sodium Lvl (test code = Sodium Lvl) 140 135-145 [facility] CenterOapcolrYDEIVXVLTWOZ9940-12-88 07:14:00 Test Item Value Reference Range Interpretation Comments Creatinine Lvl (test code = Creatinine 0.72 0.50-1.40 Lvl) [facility] CenterGwjkdkpASUSNARCDDWQ8612-36-09 07:14:00 Test Item Value Reference Range Interpretation Comments CO2 (test code = CO2) 24 24-32 [facility]viewVafcvayULCOCWMITK2677-46-24 07:14:00 Test Item Value Reference Range Interpretation Comments Platelet (test code = Platelet) 136 133-450 [facility]viewNxpzqmeDJMZADWIRV9943-03-15 07:14:00 Test Item Value Reference Range Interpretation Comments MPV (test code = MPV) 8.5 7.4-10.4 [facility] LongviewQahqwmwWLEZZTMQKG1622-33-94 07:14:00 Test Item Value Reference Range Interpretation Comments RDW (test code = RDW) 17.9 11.5-14.5 [facility] LongviewNxszhdySBRXLZBOQZ7410-50-03 07:14:00 Test Item Value Reference Range Interpretation Comments WBC (test code = WBC) 5.4 3.7-10.4 [facility] LongviewZpoqygkVZESLAHXXR7363-96-72 07:14:00 Test Item Value Reference Range Interpretation Comments Hgb (test code = Hgb) 9.4 14.0-18.0 [facility] LongviewQwiukjwWYPEOZCKGZ4445-44-80 07:14:00 Test Item Value Reference Range Interpretation Comments MCHC (test code = MCHC) 32.9 32.0-36.0 [facility] LongviewQjkivkdUEVWLCIOHD0651-33-94 07:14:00 Test Item Value Reference Range Interpretation Comments Hct (test code = Hct) 28.5 42.0-54.0 [facility]viewJxgsjjwMVJJUSBWWA1235-47-69 07:14:00 Test Item Value Reference Range Interpretation Comments MCV (test code = MCV) 84.1 80.0-94.0 [facility] LongviewAscejjfBZLEOPQXNA5734-90-39 07:14:00 Test Item Value Reference Range Interpretation Comments RBC (test code = RBC) 3.39 4.70-6.10 [facility] LongviewKeiigfiFGLNMEAJCC8862-91-24 07:14:00 Test Item Value Reference Range Interpretation Comments MCH (test code = MCH) 27.6 pg 27.0-31.0 [facility] CenterBhmutbdNMAKMYCCSPTB4548-55-90 07:14:00 Test Item Value Reference Range Interpretation Comments Creatinine Lvl (test code = Creatinine 0.72 0.50-1.40 Lvl) [facility] CenterVmxnmufZVJFNCNQQNZA3077-92-72 07:14:00 Test Item Value Reference Range Interpretation Comments CO2 (test code = CO2) 24 24-32 [facility] LongviewQkusvoeLIHFNFDNEG0602-09-35 07:14:00 Test Item Value Reference Range Interpretation Comments Platelet (test code = Platelet) 136 133-450 [facility] LongviewPsgcnvyEUPBRSLKVF3342-07-63 07:14:00 Test Item Value Reference Range Interpretation Comments MPV (test code = MPV) 8.5 7.4-10.4 [facility] LongviewSyotjhxOGQEJUJZGW9246-40-56 07:14:00 Test Item Value Reference Range Interpretation Comments RDW (test code = RDW) 17.9 11.5-14.5 [facility] LongviewCgwpnurPTBYDGPQVQ1084-35-18 07:14:00 Test Item Value Reference Range Interpretation Comments WBC (test code = WBC) 5.4 3.7-10.4 [facility] LongviewIcvxqvxZVLHVBZSQD9341-29-43 07:14:00 Test Item Value Reference Range Interpretation Comments Hgb (test code = Hgb) 9.4 14.0-18.0 [facility] LongviewSckjnwbGFTNCALWAV1312-57-08 07:14:00 Test Item Value Reference Range Interpretation Comments MCHC (test code = MCHC) 32.9 32.0-36.0 [facility] LongviewPsbdlevMYVKZWWIGT1492-77-33 07:14:00 Test Item Value Reference Range Interpretation Comments Hct (test code = Hct) 28.5 42.0-54.0 [facility] LongviewKichmibSYTHSJGTUE0770-50-89 07:14:00 Test Item Value Reference Range Interpretation Comments MCV (test code = MCV) 84.1 80.0-94.0 [facility] LongviewOvyaslyJZXCZYJWVG0318-05-50 07:14:00 Test Item Value Reference Range Interpretation Comments RBC (test code = RBC) 3.39 4.70-6.10 [facility] LongviewLyzmzzxYLDTWEHWLJ0753-74-60 07:14:00 Test Item Value Reference Range Interpretation Comments MCH (test code = MCH) 27.6 pg 27.0-31.0 [facility]fieldAddaiypLTDKIYLLARQK9299-23-59 07:14:00 Test Item Value Reference Range Interpretation Comments AGAP (test code = AGAP) 11.9 10.0-20.0 [facility]RyrytbbOITVLTUJAQCX5463-99-63 07:14:00 Test Item Value Reference Range Interpretation Comments eGFR (test code = eGFR) 96 [facility]fieldIlrinbuQRQCOCZRVPVR7471-69-67 07:14:00 Test Item Value Reference Range Interpretation Comments BUN (test code = BUN) 17 7-22 [facility]fieldTieswgaHGHBREJOYLKO5173-62-76 07:14:00 Test Item Value Reference Range Interpretation Comments Glucose Lvl (test code = Glucose Lvl) 79 70-99 [facility]fieldUtmjkazBDWORIULXNJP7728-31-15 07:14:00 Test Item Value Reference Range Interpretation Comments Calcium Lvl (test code = Calcium Lvl) 7.6 8.5-10.5 [facility]fieldLbfvidrTSZJQLTKGEAK3287-45-73 07:14:00 Test Item Value Reference Range Interpretation Comments Chloride Lvl (test code = Chloride Lvl) 108 95-109 [facility] [employer]2018-10-24 23:19:00 Test Item Value Reference Range Interpretation Comments Troponin-I (test code no gt See_Comment [Auto mated message] The = Troponin-I) system which g enerated this result transmit jw reference range : <=0.40. The reference r bret was not used to interpr et this result as mateo l/abnormal. [facility] [employer]2018-10-24 23:19:00 Test Item Value Reference Range Interpretation Comments Troponin-I (test code no gt See_Comment [Auto mated message] The = Troponin-I) system which g enerated this result transmit jw reference range : <=0.40. The reference r bret was not used to interpr et this result as mateo l/abnormal. [facility] [employer]2018-10-24 17:36:00 Test Item Value Reference Range Interpretation Comments Troponin-I (test code no gt See_Comment [Auto mated message] The = Troponin-I) system which g enerated this result transmit jw reference range : <=0.40. The reference r bret was not used to interpr et this result as mateo l/abnormal. [facility]2018-10-24 17:36:00 Test Item Value Reference Range Interpretation Comments Troponin-I (test code no gt See_Comment [Auto mated message] The = Troponin-I) system which g enerated this result transmit jw reference range : <=0.40. The reference r bret was not used to interpr et this result as mateo l/abnormal. [facility] LongviewDacwvbzQPQPWEFIDZ2269-40-86 10:52:00 Test Item Value Reference Range Interpretation Comments Neutrophils # (test code = Neutrophils 4.1 1.5-8.1 #) [facility] LongviewMjspluxWAFSFFJTPA9486-51-90 10:52:00 Test Item Value Reference Range Interpretation Comments Basophils (test code = 1.3 See_Comment [Aut omated message] The Basophils) system which ge nerated this result tra nsmitted reference range : <=1.0. The reference r bret was not used to int erpret this result as normal/abnormal . [facility] LongviewNhcozmjVVGMJRVFDH8777-96-31 10:52:00 Test Item Value Reference Range Interpretation Comments Monocytes # (test code 0.7 See_Comment [Aut omated message] The = Monocytes #) system which generated this result tra nsmitted reference range : <=0.8. The reference r bret was not used to int erpret this result as normal/abnormal . [facility] LongviewEjlmwdaMTYGRBBZLJ6607-13-35 10:52:00 Test Item Value Reference Range Interpretation Comments Lymphocytes # (test code = Lymphocytes 1.3 1.0-5.5 #) [facility] LongviewXxxmvkjNRKFNABWDT1054-15-57 10:52:00 Test Item Value Reference Range Interpretation Comments Eosinophils # (test code 0.1 See_Comment [A utomated message] The = Eosinophils #) system whic h generated this result tra nsmitted reference range : <=0.5. The reference r bret was not used to int erpret this result as normal/abnormal . [facility] LongviewSlqqgowGBASHEXANK7290-47-55 10:52:00 Test Item Value Reference Range Interpretation Comments Basophils # (test code 0.1 See_Comment [Aut omated message] The = Basophils #) system which generated this result tra nsmitted reference range : <=0.2. The reference r bret was not used to int erpret this result as normal/abnormal . [facility] LongviewVuzkpbrLJJQPXGKCK1081-09-60 10:52:00 Test Item Value Reference Range Interpretation Comments Lymphocytes (test code = Lymphocytes) 20.5 20.0-40.0 [facility] LongviewYkxtsziZDXJLAVUPU6132-44-29 10:52:00 Test Item Value Reference Range Interpretation Comments Eosinophils (test code = 1.9 See_Comment [A utomated message] The Eosinophils) system which ge nerated this result tra nsmitted reference range : <=4.0. The reference r bret was not used to int erpret this result as normal/abnormal . [facility] LongviewPspvhjlVSSHGCTPJF7051-41-15 10:52:00 Test Item Value Reference Range Interpretation Comments Monocytes (test code = Monocytes) 11.0 2.0-12.0 [facility] LongviewIutjmcgPPWEKWZJKM8105-76-30 10:52:00 Test Item Value Reference Range Interpretation Comments Segs (test code = Segs) 65.3 45.0-75.0 [facility] LongviewPpqsjlrKJGONCPHOP7828-13-38 10:52:00 Test Item Value Reference Range Interpretation Comments WBC (test code = WBC) 6.2 3.7-10.4 [facility] LongviewKawyuepFZJVZLVPMB0612-10-47 10:52:00 Test Item Value Reference Range Interpretation Comments MCH (test code = MCH) 27.3 pg 27.0-31.0 [facility] LongviewXtfwrcvYLTEDRJJMJ4517-10-81 10:52:00 Test Item Value Reference Range Interpretation Comments MCV (test code = MCV) 83.7 80.0-94.0 [facility]viewIhhayhyKZDSAHPSXJ9888-72-02 10:52:00 Test Item Value Reference Range Interpretation Comments RBC (test code = RBC) 3.80 4.70-6.10 [facility]viewQanwinjUTMBJNKFAA1247-10-02 10:52:00 Test Item Value Reference Range Interpretation Comments Hct (test code = Hct) 31.8 42.0-54.0 [facility]viewBcdswfwACRNYOTTVM1608-18-86 10:52:00 Test Item Value Reference Range Interpretation Comments Hgb (test code = Hgb) 10.4 14.0-18.0 [facility]viewUjiztxtMBAEHUSIUV1106-16-23 10:52:00 Test Item Value Reference Range Interpretation Comments RDW (test code = RDW) 17.7 11.5-14.5 [facility]viewRxxrrujCOYPWRSJSU7904-12-53 10:52:00 Test Item Value Reference Range Interpretation Comments MCHC (test code = MCHC) 32.6 32.0-36.0 [facility]viewXllmsxcSMOCTQYQVZ6295-08-88 10:52:00 Test Item Value Reference Range Interpretation Comments MPV (test code = MPV) 8.7 7.4-10.4 [facility]viewQliszviUQUEXSNCBP9685-74-05 10:52:00 Test Item Value Reference Range Interpretation Comments Platelet (test code = Platelet) 167 133-450 [facility]viewSfhclqaMJZTPSURNM5504-03-47 10:52:00 Test Item Value Reference Range Interpretation Comments Neutrophils # (test code = Neutrophils 4.1 1.5-8.1 #) [facility]viewCpiskagBOMZRJJGDW9356-92-78 10:52:00 Test Item Value Reference Range Interpretation Comments Basophils (test code = 1.3 See_Comment [Aut omated message] The Basophils) system which ge nerated this result tra nsmitted reference range : <=1.0. The reference r bret was not used to int erpret this result as normal/abnormal . [facility]viewFkkclhiZDZUSMVZDK6445-10-64 10:52:00 Test Item Value Reference Range Interpretation Comments Monocytes # (test code 0.7 See_Comment [Aut omated message] The = Monocytes #) system which generated this result tra nsmitted reference range : <=0.8. The reference r bret was not used to int erpret this result as normal/abnormal . [facility]viewKavveenVFXCXRXXDY3226-18-78 10:52:00 Test Item Value Reference Range Interpretation Comments Lymphocytes # (test code = Lymphocytes 1.3 1.0-5.5 #) [facility]viewWlrbvjjKOCFLOITAZ8423-60-76 10:52:00 Test Item Value Reference Range Interpretation Comments Eosinophils # (test code 0.1 See_Comment [A utomated message] The = Eosinophils #) system whic h generated this result tra nsmitted reference range : <=0.5. The reference r bret was not used to int erpret this result as normal/abnormal . [facility]viewVyidorpSMIVNPSCPA2166-14-99 10:52:00 Test Item Value Reference Range Interpretation Comments Basophils # (test code 0.1 See_Comment [Aut omated message] The = Basophils #) system which generated this result tra nsmitted reference range : <=0.2. The reference r bret was not used to int erpret this result as normal/abnormal . [facility]viewBnthryrRQJHJJLVQC8357-43-86 10:52:00 Test Item Value Reference Range Interpretation Comments Lymphocytes (test code = Lymphocytes) 20.5 20.0-40.0 [facility]viewUzjyekjBXNKEGXLQD2721-62-41 10:52:00 Test Item Value Reference Range Interpretation Comments Eosinophils (test code = 1.9 See_Comment [A utomated message] The Eosinophils) system which ge nerated this result tra nsmitted reference range : <=4.0. The reference r bret was not used to int erpret this result as normal/abnormal . [facility]viewNngswezNNZSBXILAJ3736-13-58 10:52:00 Test Item Value Reference Range Interpretation Comments Monocytes (test code = Monocytes) 11.0 2.0-12.0 [facility]viewWeqxlshEAOTPRBBFK3181-51-00 10:52:00 Test Item Value Reference Range Interpretation Comments Segs (test code = Segs) 65.3 45.0-75.0 [facility]viewAaqvxcbFFYELDEGOJ2923-50-94 10:52:00 Test Item Value Reference Range Interpretation Comments WBC (test code = WBC) 6.2 3.7-10.4 [facility]viewVhchwbgCASFAMNVNH3377-22-42 10:52:00 Test Item Value Reference Range Interpretation Comments MCH (test code = MCH) 27.3 pg 27.0-31.0 [facility]viewZzpufmaZSSKJHLXBN4953-25-47 10:52:00 Test Item Value Reference Range Interpretation Comments MCV (test code = MCV) 83.7 80.0-94.0 [facility]viewGyhuvsxDWEYHPBPNI5800-72-41 10:52:00 Test Item Value Reference Range Interpretation Comments RBC (test code = RBC) 3.80 4.70-6.10 [facility]viewWtynxxxOEDNPWRUOC2879-62-57 10:52:00 Test Item Value Reference Range Interpretation Comments Hct (test code = Hct) 31.8 42.0-54.0 [facility]viewRcfkzevYSCSJIYPGA1578-29-76 10:52:00 Test Item Value Reference Range Interpretation Comments Hgb (test code = Hgb) 10.4 14.0-18.0 [facility]viewLqgsqriOBFVEKUPIC4206-50-73 10:52:00 Test Item Value Reference Range Interpretation Comments RDW (test code = RDW) 17.7 11.5-14.5 [facility]TfdkaugGNUXFKZLXE0020-70-77 10:52:00 Test Item Value Reference Range Interpretation Comments MCHC (test code = MCHC) 32.6 32.0-36.0 [facility]viewBmtpehwVYLNAQRSGM6740-48-62 10:52:00 Test Item Value Reference Range Interpretation Comments MPV (test code = MPV) 8.7 7.4-10.4 [facility]awOcedjnqXYMDPHQHQW2952-50-49 10:52:00 Test Item Value Reference Range Interpretation Comments Platelet (test code = Platelet) 167 133-450 [facility]2018-10-24 07:38:00 Test Item Value Reference Range Interpretation Comments Creatinine Lvl (test code = Creatinine 0.81 0.50-1.40 Lvl) [facility]2018-10-24 07:38:00 Test Item Value Reference Range Interpretation Comments Potassium Lvl (test code = Potassium 3.6 3.5-5.1 Lvl) [facility]2018-10-24 07:38:00 Test Item Value Reference Range Interpretation Comments CO2 (test code = CO2) 19 24-32 [facility]2018-10-24 07:38:00 Test Item Value Reference Range Interpretation Comments Chloride Lvl (test code = Chloride Lvl) 108 95-109 [facility]2018-10-24 07:38:00 Test Item Value Reference Range Interpretation Comments eGFR (test code = eGFR) 91 [facility]2018-10-24 07:38:00 Test Item Value Reference Range Interpretation Comments BUN (test code = BUN) 17 7-22 [facility] [id number] 07:38:00 Test Item Value Reference Range Interpretation Comments Glucose Lvl (test code = Glucose Lvl) 82 70-99 [facility] HospitalCARDIAC [id number] 07:38:00 Test Item Value Reference Range Interpretation Comments Troponin-I (test code no gt See_Comment [Auto mated message] The = Troponin-I) system which g enerated this result transmit jw reference range : <=0.40. The reference r bret was not used to interpr et this result as mateo l/abnormal. [facility] [id number] 07:38:00 Test Item Value Reference Range Interpretation Comments Calcium Lvl (test code = Calcium Lvl) 7.2 8.5-10.5 [facility] [id number] 07:38:00 Test Item Value Reference Range Interpretation Comments AGAP (test code = AGAP) 13.6 10.0-20.0 [facility] [id number] 07:38:00 Test Item Value Reference Range Interpretation Comments Sodium Lvl (test code = Sodium Lvl) 137 135-145 [facility] HospitalCARD[facility]AC [id number] 07:38:00 Test Item Value Reference Range Interpretation Comments Troponin-I (test code no gt See_Comment [Auto mated message] The = Troponin-I) system which g enerated this result transmit jw reference range : <=0.40. The reference r bret was not used to interpr et this result as mateo l/abnormal. [facility] HospitalCons[facility] Market[facility] [id number] 07:38:00 Test Item Value Reference Range Interpretation Comments Calcium Lvl (test code = Calcium Lvl) 7.2 8.5-10.5 [facility]2018-10-24 07:38:00 Test Item Value Reference Range Interpretation Comments AGAP (test code = AGAP) 13.6 10.0-20.0 [facility] [id number] 07:38:00 Test Item Value Reference Range Interpretation Comments Sodium Lvl (test code = Sodium Lvl) 137 135-145 [facility] [id number] 07:38:00 Test Item Value Reference Range Interpretation Comments Creatinine Lvl (test code = Creatinine 0.81 0.50-1.40 Lvl) [facility]2018-10-24 07:38:00 Test Item Value Reference Range Interpretation Comments Potassium Lvl (test code = Potassium 3.6 3.5-5.1 Lvl) [facility] [id number] 07:38:00 Test Item Value Reference Range Interpretation Comments CO2 (test code = CO2) 19 - [facility]2018-10-24 07:38:00 Test Item Value Reference Range Interpretation Comments Chloride Lvl (test code = Chloride Lvl) 108 95-109 [facility]2018-10-24 07:38:00 Test Item Value Reference Range Interpretation Comments eGFR (test code = eGFR) 91 [facility] [id number] 07:38:00 Test Item Value Reference Range Interpretation Comments BUN (test code = BUN) 17 7-22 [facility]2018-10-24 07:38:00 Test Item Value Reference Range Interpretation Comments Glucose Lvl (test code = Glucose Lvl) 82 70-99 [facility] [id number] 02:35:00 Test Item Value Reference Range Interpretation Comments Lactic Acid Lvl (test code = Lactic 1.5 0.5-2.2 Acid Lvl) [facility] [id number] 02:35:00 Test Item Value Reference Range Interpretation Comments Lactic Acid Lvl (test code = Lactic 1.5 0.5-2.2 Acid Lvl) [facility] [id number] 00:27:00 Test Item Value Reference Range Interpretation Comments Lactic Acid Lvl (test code = Lactic 1.3 0.5-2.2 Acid Lvl) [facility] HospitalUqqgqgfHSYROI7903-59-18 00:27:00 Test Item Value Reference Range Interpretation Comments Trig (test code = Trig) 89 [facility] HospitalIxwkejrLOITLO9614-93-89 00:27:00 Test Item Value Reference Range Interpretation Comments Chol (test code = Chol) 150 [facility] HospitalGgkhwldWLVRKW6884-55-05 00:27:00 Test Item Value Reference Range Interpretation Comments HDL (test code = HDL) 33 [facility] HospitalLzumvplLDKBIF2684-10-69 00:27:00 Test Item Value Reference Range Interpretation Comments CHD Risk (test code = CHD Risk) 4.55 1 4.00-7.30 [facility] HospitalNrfjwweMRJCFK6681-39-87 00:27:00 Test Item Value Reference Range Interpretation Comments LDL (Calculated) (test code = LDL 99 (Calculated)) [facility] HospitalLjreudrZVBTBV2988-94-12 00:27:00 Test Item Value Reference Range Interpretation Comments VLDL (test code = VLDL) [address] [facility] [id number] 00:27:00 Test Item Value Reference Range Interpretation Comments Hgb A1C (test code = Hgb A1C) 6.0 [facility] [id number] 00:27:00 Test Item Value Reference Range Interpretation Comments UA Blood (test code = Negative (12/28/17 7:27 [facility]A Blood) PM) [facility] [id number] 00:27:00 Test Item Value Reference Range Interpretation Comments UA Spec Grav (test *NA*(12/28/17 7:27 PM) code = UA Spec Grav) [facility] [id number] 00:27:00 Test Item Value Reference Range Interpretation Comments UA Turbidity (test code = Clear (12/28/17 7:27 UA Turbidity) PM) [facility] [id number] 00:27:00 Test Item Value Reference Range Interpretation Comments UA Glucose (test code Negative (12/28/17 7:27 = UA Glucose) PM) [facility] [id number] 00:27:00 Test Item Value Reference Range Interpretation Comments UA Protein (test code Negative (12/28/17 7:27 = UA Protein) PM) [facility] [id number] 00:27:00 Test Item Value Reference Range Interpretation Comments UA Bili (test code = Negative *NA*(12/28/17 UA Bili) 7:27 PM) [facility] [id number] 00:27:00 Test Item Value Reference Range Interpretation Comments UA Ketones (test code Negative *NA*(12/28/17 = UA Ketones) 7:27 PM) [facility] [id number] 00:27:00 Test Item Value Reference Range Interpretation Comments UA Leuk Est (test Negative (12/28/17 7:27 code = UA Leuk Est) PM) [facility] [id number] 00:27:00 Test Item Value Reference Range Interpretation Comments UA Nitrite (test code Negative (12/28/17 7:27 = UA Nitrite) PM) [facility] [id number] 00:27:00 Test Item Value Reference Range Interpretation Comments UA Urobilinogen (test code = UA 0.2 0.1-1.0 Urobilinogen) [facility] [id number] 00:27:00 Test Item Value Reference Range Interpretation Comments UA pH (test code = UA pH) 7.0 1 5.0-8.0 [facility] [id number] 00:27:00 Test Item Value Reference Range Interpretation Comments UA Color (test code = Yellow *NA*(12/28/17 UA Color) 7:27 PM) [facility] [id number] 00:27:00 Test Item Value Reference Range Interpretation Comments UA Bacteria (test code = None Seen (12/28/17 UA Bacteria) 7:27 PM) [facility] [id number] 00:27:00 Test Item Value Reference Range Interpretation Comments UA WBC (test code = UA None Seen (12/28/17 WBC) 7:27 PM) [facility] [id number] 00:27:00 Test Item Value Reference Range Interpretation Comments UA Sq Epi (test code = UA Sq Epi) Rare /LPF [facility] [id number] 00:27:00 Test Item Value Reference Range Interpretation Comments Micro? (test code = Performed (12/28/17 7:27 Micro?) PM) [facility] [id number] 00:27:00 Test Item Value Reference Range Interpretation Comments UA RBC (test None Seen See_Comment [Automated [place]] code = UA RBC) (12/28/17 7:27 The system which PM) generated this result transmitted ref erence range: <=2. The reference range was not used to int erpret this result as normal/abnormal . [facility]annCHEM [id number] 00:27:00 Test Item Value Reference Range Interpretation Comments Lactic Acid Lvl (test code = Lactic 1.3 0.5-2.2 Acid Lvl) [facility] TczvnzyZJLXGG6255-07-53 00:27:00 Test Item Value Reference Range Interpretation Comments Trig (test code = Trig) 89 [facility] TsaqbgzWNUPDQ6394-06-97 00:27:00 Test Item Value Reference Range Interpretation Comments Chol (test code = Chol) 150 [facility] JhgecevBERDDA5724-57-28 00:27:00 Test Item Value Reference Range Interpretation Comments HDL (test code = HDL) 33 [facility] RdcqgqfLYQWKL8615-75-10 00:27:00 Test Item Value Reference Range Interpretation Comments CHD Risk (test code = CHD Risk) 4.55 1 4.00-7.30 [facility] EtpslpxIRKCGX2149-01-33 00:27:00 Test Item Value Reference Range Interpretation Comments LDL (Calculated) (test code = LDL 99 (Calculated)) [facility] IigzexfCDAIGX1657-92-04 00:27:00 Test Item Value Reference Range Interpretation Comments VLDL (test code = VLDL) 18 1 [facility]SPE[facility] [id number] 00:27:00 Test Item Value Reference Range Interpretation Comments Hgb A1C (test code = Hgb A1C) 6.0 [facility] [id number] 00:27:00 Test Item Value Reference Range Interpretation Comments UA Blood (test code = Negative (12/28/17 7:27 UA Blood) PM) [facility] [id number] 00:27:00 Test Item Value Reference Range Interpretation Comments UA Spec Grav (test *NA*(12/28/17 7:27 PM) code = UA Spec Grav) [facility] [id number] 00:27:00 Test Item Value Reference Range Interpretation Comments UA Turbidity (test code = Clear (12/28/17 7:27 UA Turbidity) PM) [facility] [id number] 00:27:00 Test Item Value Reference Range Interpretation Comments UA Glucose (test code Negative (12/28/17 7:27 = UA Glucose) PM) [facility] [id number] 00:27:00 Test Item Value Reference Range Interpretation Comments UA Protein (test code Negative (12/28/17 7:27 = UA Protein) PM) [facility] [id number] 00:27:00 Test Item Value Reference Range Interpretation Comments UA Bili (test code = Negative *NA*(12/28/17 UA Bili) 7:27 PM) [facility] [id number] 00:27:00 Test Item Value Reference Range Interpretation Comments UA Ketones (test code Negative *NA*(12/28/17 = UA Ketones) 7:27 PM) [facility] [id number] 00:27:00 Test Item Value Reference Range Interpretation Comments UA Leuk Est (test Negative (12/28/17 7:27 code = UA Leuk Est) PM) [facility] [id number] 00:27:00 Test Item Value Reference Range Interpretation Comments UA Nitrite (test code Negative (12/28/17 7:27 = UA Nitrite) PM) [facility] [id number] 00:27:00 Test Item Value Reference Range Interpretation Comments UA Urobilinogen (test code = UA 0.2 0.1-1.0 Urobilinogen) [facility] [id number] 00:27:00 Test Item Value Reference Range Interpretation Comments UA pH (test code = UA pH) 7.0 1 5.0-8.0 [facility] [id number] 00:27:00 Test Item Value Reference Range Interpretation Comments UA Color (test code = Yellow *NA*(12/28/17 UA Color) 7:27 PM) [facility] [id number] 00:27:00 Test Item Value Reference Range Interpretation Comments UA Bacteria (test code = None Seen (12/28/17 UA Bacteria) 7:27 PM) [facility] [id number] 00:27:00 Test Item Value Reference Range Interpretation Comments UA WBC (test code = UA None Seen (12/28/17 WBC) 7:27 PM) [facility] [id number] 00:27:00 Test Item Value Reference Range Interpretation Comments UA Sq Epi (test code = UA Sq Epi) Rare /LPF [facility] [id number] 00:27:00 Test Item Value Reference Range Interpretation Comments Micro? (test code = Performed (12/28/17 7:27 Micro?) PM) [facility] [id number] 00:27:00 Test Item Value Reference Range Interpretation Comments UA RBC (test None Seen See_Comment [Automated [place]] code = UA RBC) (12/28/17 7:27 The system which PM) generated this result transmitted ref erence range: <=2. The reference range was not used to int erpret this result as normal/abnormal . [facility] [employer] [id number] 18:56:00 Test Item Value Reference Range Interpretation Comments eGFR (test code = eGFR) 69 [facility] [id number] 18:56:00 Test Item Value Reference Range Interpretation Comments POC Creatinine (test code = POC 0.7 0.5-1.4 Creatinine) [facility] [id number] 18:56:00 Test Item Value Reference Range Interpretation Comments eGFR (test code = eGFR) 69 [facility]2018-10-23 18:56:00 Test Item Value Reference Range Interpretation Comments POC Creatinine (test code = POC 0.7 0.5-1.4 Creatinine) [facility] CenterZgeaxhmKCJTTRPXBUYR2669-09-99 18:34:00 Test Item Value Reference Range Interpretation Comments Chloride Lvl (test code = Chloride Lvl) 93 95-109 [facility] CenterDonfczhDOJERJMPIOBL7921-73-55 18:34:00 Test Item Value Reference Range Interpretation Comments CO2 (test code = CO2) 26 24-32 [place] [id number] 18:34:00 Test Item Value Reference Range Interpretation Comments Sodium Lvl (test code = Sodium Lvl) 132 135-145 [facility] CenterFyhwcrfZTTEQUFVDGEG3530-24-27 18:34:00 Test Item Value Reference Range Interpretation Comments Potassium Lvl (test code = Potassium 4.3 3.5-5.1 Lvl) [facility] CenterBrbpbbbQSDGEDTMPXRF8971-50-00 18:34:00 Test Item Value Reference Range Interpretation Comments BUN (test code = BUN) 18 7-22 [facility] CenterCkcwzqkJCEWAJEPQDDM1880-81-85 18:34:00 Test Item Value Reference Range Interpretation Comments Glucose Lvl (test code = Glucose Lvl) 133 70-99 [facility] CenterRoaavnoKOXYNJHTKKXM5247-24-60 18:34:00 Test Item Value Reference Range Interpretation Comments Creatinine Lvl (test code = Creatinine 0.99 0.50-1.40 Lvl) [facility]viewPlxzlqjJELALLEYBZ4753-44-90 18:34:00 Test Item Value Reference Range Interpretation Comments Hct (test code = Hct) 40.9 42.0-54.0 [facility]viewFhjfrfoURDNHQLDFA9616-85-33 18:34:00 Test Item Value Reference Range Interpretation Comments WBC (test code = WBC) 13.5 3.7-10.4 [facility]viewXwylvojQMZOZADMCZ4090-34-15 18:34:00 Test Item Value Reference Range Interpretation Comments RBC (test code = RBC) 4.91 4.70-6.10 [facility]viewBtbnuitANKWBWGOXM4871-15-17 18:34:00 Test Item Value Reference Range Interpretation Comments Hgb (test code = Hgb) 13.5 14.0-18.0 [facility]viewGwllgapCOMVHWORUN7869-42-48 18:34:00 Test Item Value Reference Range Interpretation Comments MCV (test code = MCV) 83.4 80.0-94.0 [facility] HospitalDymxxxvZOVQTRQKRL2932-12-89 18:34:00 Test Item Value Reference Range Interpretation Comments MCH (test code = MCH) 27.5 pg 27.0-31.0 [facility]NilwlpbCEZMFBEOKR5127-90-14 18:34:00 Test Item Value Reference Range Interpretation Comments RDW (test code = RDW) 18.2 11.5-14.5 [facility]awQhwkdcrLNDSTNUWYV3749-95-94 18:34:00 Test Item Value Reference Range Interpretation Comments MCHC (test code = MCHC) 33.0 32.0-36.0 [facility]awEbqmbwhEGQRGYLDSD4521-27-36 18:34:00 Test Item Value Reference Range Interpretation Comments Platelet (test code = Platelet) 216 133-450 [facility]awNkkugtqBCOHRHTXIQ2521-21-29 18:34:00 Test Item Value Reference Range Interpretation Comments MPV (test code = MPV) 8.5 7.4-10.4 [facility]awOrbdsrnICXNMQFHKM9339-08-79 18:34:00 Test Item Value Reference Range Interpretation Comments PTT (test code = PTT) 31.5 s 22.9-35.8 [facility] HospitalCARDIAC [id number] 18:34:00 Test Item Value Reference Range Interpretation Comments Total CK (test code = Total CK) 105 12-191 [facility] HospitalCHEM [id number] 18:34:00 Test Item Value Reference Range Interpretation Comments Globulin (test code = Globulin) 5.2 2.7-4.2 [facility] [id number] 18:34:00 Test Item Value Reference Range Interpretation Comments A/G Ratio (test code = A/G Ratio) 0.8 1 0.7-1.6 [facility] [id number] 18:34:00 Test Item Value Reference Range Interpretation Comments Albumin Lvl (test code = Albumin Lvl) 4.4 3.5-5.0 [facility] [id number] 18:34:00 Test Item Value Reference Range Interpretation Comments Total Protein (test code = Total 9.6 6.4-8.4 Protein) [facility] [id number] 18:34:00 Test Item Value Reference Range Interpretation Comments Bili Direct (test code 0.1 See_Comment [Aut omated message] The = Bili Direct) system which generated this result tra nsmitted reference range : <=0.3. The reference r bret was not used to int erpret this result as mateo l/abnormal. [facility]viewKrjzqmjHKRQQXVZZB8130-37-68 18:34:00 Test Item Value Reference Range Interpretation Comments PT (test code = PT) 13.2 s 12.0-14.7 [facility]2018-10-23 18:34:00 Test Item Value Reference Range Interpretation Comments Bili Total (test code = Bili Total) 0.6 0.2-1.3 [facility]2018-10-23 18:34:00 Test Item Value Reference Range Interpretation Comments Bili Indirect (test 0.5 See_Comment [Automa jw message] The code = Bili Indirect) system which generated this result tra nsmitted reference range : <=1.0. The reference r bret was not used to int erpret this result as normal/abnormal . [facility]2018-10-23 18:34:00 Test Item Value Reference Range Interpretation Comments AST (test code = AST) 23 See_Comment [Auto mated message] The system which ge nerated this result transmit jw reference range : <=37. The reference range was not used to interpr et this result as mateo l/abnormal. [facility]2018-10-23 18:34:00 Test Item Value Reference Range Interpretation Comments ALT (test code = ALT) 23 See_Comment [Auto mated message] The system which ge nerated this result transmit jw reference range : <=65. The reference range was not used to interpr et this result as mateo l/abnormal. [facility]2018-10-23 18:34:00 Test Item Value Reference Range Interpretation Comments Alk Phos (test code = Alk Phos) 161 39-136 [facility]2018-10-23 18:34:00 Test Item Value Reference Range Interpretation Comments Lipase Lvl (test code = Lipase Lvl) 202 73-393 [facility]2018-10-23 18:34:00 Test Item Value Reference Range Interpretation Comments Lactic Acid WB (test code = Lactic Acid 2.5 0.5-2.2 WB) [facility] CenterWbdxrloXSNELPKSXIFV4906-72-26 18:34:00 Test Item Value Reference Range Interpretation Comments AGAP (test code = AGAP) 17.3 10.0-20.0 [facility] Center[id number] 18:34:00 Test Item Value Reference Range Interpretation Comments Calcium Lvl (test code = Calcium Lvl) 9.9 8.5-10.5 [facility] CenterHcwkdzaQLDQWPDHWSGR3004-70-57 18:34:00 Test Item Value Reference Range Interpretation Comments Chloride Lvl (test code = Chloride Lvl) 93 95-109 [facility]viewTkkszhlACAIEGZLOE9828-09-19 18:34:00 Test Item Value Reference Range Interpretation Comments INR (test code = INR) 1.00 1 0.85-1.17 [facility] CenterQbjcavbEPJYSSZKIZUA5080-63-34 18:34:00 Test Item Value Reference Range Interpretation Comments CO2 (test code = CO2) 26 24-32 [facility] CenterHrfryqqSLWKKWRFKHXK6343-79-86 18:34:00 Test Item Value Reference Range Interpretation Comments Sodium Lvl (test code = Sodium Lvl) 132 135-145 [facility] CenterDkenulgPYUQBZNUIWTT0169-49-33 18:34:00 Test Item Value Reference Range Interpretation Comments Potassium Lvl (test code = Potassium 4.3 3.5-5.1 Lvl) [facility] CenterCjiuvraKNXBRNFFLWPJ9422-81-34 18:34:00 Test Item Value Reference Range Interpretation Comments BUN (test code = BUN) 18 7-22 [facility] CenterTjvtovrTWSMWUGWPLXA0321-26-43 18:34:00 Test Item Value Reference Range Interpretation Comments Glucose Lvl (test code = Glucose Lvl) 133 70-99 [facility] CenterFqakvcySVIAJLLJSRVC3088-78-33 18:34:00 Test Item Value Reference Range Interpretation Comments Creatinine Lvl (test code = Creatinine 0.99 0.50-1.40 Lvl) [facility]viewRabstjbJEOHFKLYHC2309-93-84 18:34:00 Test Item Value Reference Range Interpretation Comments Hct (test code = Hct) 40.9 42.0-54.0 [facility] LongviewGrfnzynXOXXFSASSE3839-03-59 18:34:00 Test Item Value Reference Range Interpretation Comments WBC (test code = WBC) 13.5 3.7-10.4 [facility] LongviewQyahojyKPREGPAXIU0944-31-78 18:34:00 Test Item Value Reference Range Interpretation Comments RBC (test code = RBC) 4.91 4.70-6.10 [facility] LongviewVtxczraNTXWBZXWDU7753-81-26 18:34:00 Test Item Value Reference Range Interpretation Comments Hgb (test code = Hgb) 13.5 14.0-18.0 [facility] LongviewUoyayjlBURYXDSBBC1671-51-83 18:34:00 Test Item Value Reference Range Interpretation Comments Basophils # (test code 0.2 See_Comment [Aut omated message] The = Basophils #) system which generated this result tra nsmitted reference range : <=0.2. The reference r bret was not used to int erpret this result as normal/abnormal . [facility] LongviewIdkuhagMNCHJIKUNE7048-25-15 18:34:00 Test Item Value Reference Range Interpretation Comments MCV (test code = MCV) 83.4 80.0-94.0 [facility]viewTmvnkzgCXIPBFCWNM9348-36-75 18:34:00 Test Item Value Reference Range Interpretation Comments MCH (test code = MCH) 27.5 pg 27.0-31.0 [facility] LongviewLljuwfwVXMACNVNAO5053-43-14 18:34:00 Test Item Value Reference Range Interpretation Comments RDW (test code = RDW) 18.2 11.5-14.5 [facility] LongviewBdcaotlQIOYNIHUEQ2490-22-91 18:34:00 Test Item Value Reference Range Interpretation Comments MCHC (test code = MCHC) 33.0 32.0-36.0 [facility]viewKvntncyOWKXHGGHMZ0395-44-19 18:34:00 Test Item Value Reference Range Interpretation Comments Platelet (test code = Platelet) 216 133-450 [facility] LongviewBmfknniDDINZJXIPB7952-41-39 18:34:00 Test Item Value Reference Range Interpretation Comments MPV (test code = MPV) 8.5 7.4-10.4 [facility]viewVlobdqgBXSVCUVCJE0995-51-58 18:34:00 Test Item Value Reference Range Interpretation Comments PTT (test code = PTT) 31.5 s 22.9-35.8 [facility] LongviewBlqrsmvWOTDMSBDWF3737-17-71 18:34:00 Test Item Value Reference Range Interpretation Comments PT (test code = PT) 13.2 s 12.0-14.7 [facility] LongviewFjlnljkCHALTFAPBC0863-64-98 18:34:00 Test Item Value Reference Range Interpretation Comments INR (test code = INR) 1.00 1 0.85-1.17 [facility]viewFtwfypgMXGEZZFFDR2744-24-54 18:34:00 Test Item Value Reference Range Interpretation Comments Basophils # (test code 0.2 See_Comment [Aut omated message] The = Basophils #) system which generated this result tra nsmitted reference range : <=0.2. The reference r bret was not used to int erpret this result as normal/abnormal . [facility] LongviewHlmsjnwXQBLHROPXU3142-07-85 18:34:00 Test Item Value Reference Range Interpretation Comments Lymphocytes (test code = Lymphocytes) 11.4 20.0-40.0 [facility] LongviewPcxhhxlEOPAHGVBNE9217-68-11 18:34:00 Test Item Value Reference Range Interpretation Comments Lymphocytes (test code = Lymphocytes) 11.4 20.0-40.0 [facility] LongviewSwjonspPTNPFLSPRM8954-31-03 18:34:00 Test Item Value Reference Range Interpretation Comments Monocytes (test code = Monocytes) 4.4 2.0-12.0 [facility] LongviewRwlkzdtPRGSCWHFMF5234-75-30 18:34:00 Test Item Value Reference Range Interpretation Comments Neutrophils # (test code = Neutrophils 11.1 1.5-8.1 #) [facility] LongviewTrwvmdbTDATRFSPUF6015-30-60 18:34:00 Test Item Value Reference Range Interpretation Comments Lymphocytes # (test code = Lymphocytes 1.5 1.0-5.5 #) [facility] LongviewRwanimnTXORJQJYCO3935-81-35 18:34:00 Test Item Value Reference Range Interpretation Comments Eosinophils # (test code 0.1 See_Comment [A utomated message] The = Eosinophils #) system wh h generated this result tra nsmitted reference range : <=0.5. The reference r bret was not used to int erpret this result as normal/abnormal . [facility] LongviewAlxlrruNPHCMSVHSQ4490-86-25 18:34:00 Test Item Value Reference Range Interpretation Comments Monocytes # (test code 0.6 See_Comment [Aut omated message] The = Monocytes #) system which generated this result tra nsmitted reference range : <=0.8. The reference r bret was not used to int erpret this result as normal/abnormal . [facility] LongviewCczarutEGKQDTTITE8860-49-22 18:34:00 Test Item Value Reference Range Interpretation Comments Eosinophils (test code = 0.9 See_Comment [A utomated message] The Eosinophils) system which ge nerated this result tra nsmitted reference range : <=4.0. The reference r bret was not used to int erpret this result as normal/abnormal . [facility] LongviewIkfygotMTJFKMSRHI3927-13-41 18:34:00 Test Item Value Reference Range Interpretation Comments Basophils (test code = 1.5 See_Comment [Aut omated message] The Basophils) system which ge nerated this result tra nsmitted reference range : <=1.0. The reference r bret was not used to int erpret this result as normal/abnormal . [place] [address]-10-23 18:34:00 Test Item Value Reference Range Interpretation Comments Segs (test code = Segs) 81.8 45.0-75.0 [place] [id number] 18:34:00 Test Item Value Reference Range Interpretation Comments Monocytes (test code = Monocytes) 4.4 2.0-12.0 [facility] LongviewJlxyitoOCLIGXLGEB8738-88-42 18:34:00 Test Item Value Reference Range Interpretation Comments Neutrophils # (test code = Neutrophils 11.1 1.5-8.1 #) [facility]viewAlikgppNHYGKKWPOL6238-21-29 18:34:00 Test Item Value Reference Range Interpretation Comments Lymphocytes # (test code = Lymphocytes 1.5 1.0-5.5 #) [facility] LongviewZljblbrPPQHUHKVEW8473-11-11 18:34:00 Test Item Value Reference Range Interpretation Comments Eosinophils # (test code 0.1 See_Comment [A utomated message] The = Eosinophils #) system [facility] h generated this result tra nsmitted reference range : <=0.5. The reference r bret was not used to int erpret this result as normal/abnormal . [facility] LongviewSvebgpeAWKDWLLZHN7667-88-89 18:34:00 Test Item Value Reference Range Interpretation Comments Monocytes # (test code 0.6 See_Comment [Aut omated message] The = Monocytes #) system which generated this result tra nsmitted reference range : <=0.8. The reference r bret was not used to int erpret this result as normal/abnormal . [facility] LongviewZwqzupmCFELKKGZRG7333-91-43 18:34:00 Test Item Value Reference Range Interpretation Comments Eosinophils (test code = 0.9 See_Comment [A utomated message] The Eosinophils) system which ge nerated this result tra nsmitted reference range : <=4.0. The reference r bret was not used to int erpret this result as normal/abnormal . [facility] HospitalNqixwewEPOUAGUXZS7069-02-51 18:34:00 Test Item Value Reference Range Interpretation Comments Basophils (test code = 1.5 See_Comment [Aut omated message] The Basophils) system which ge nerated this result tra nsmitted reference range : <=1.0. The reference r bret was not used to int erpret this result as normal/abnormal . [facility] HospitalGqftfzwBDDMNDHOGI6739-85-79 18:34:00 Test Item Value Reference Range Interpretation Comments Segs (test code = Segs) 81.8 45.0-75.0 [facility] HospitalCARDIAC [id number] 18:34:00 Test Item Value Reference Range Interpretation Comments Total CK (test code = Total CK) 105 12-191 [facility] [id number] 18:34:00 Test Item Value Reference Range Interpretation Comments Globulin (test code = Globulin) 5.2 2.7-4.2 [facility] [id number] 18:34:00 Test Item Value Reference Range Interpretation Comments A/G Ratio (test code = A/G Ratio) 0.8 1 0.7-1.6 [facility]fieldannCons[facility] [employer] [id number] 18:34:00 Test Item Value Reference Range Interpretation Comments Albumin Lvl (test code = Albumin Lvl) 4.4 3.5-5.0 [facility] [id number] 18:34:00 Test Item Value Reference Range Interpretation Comments Total Protein (test code = Total 9.6 6.4-8.4 Protein) [facility] [id number] 18:34:00 Test Item Value Reference Range Interpretation Comments Bili Direct (test code 0.1 See_Comment [Aut omated message] The = Bili Direct) system which generated this result tra nsmitted reference range : <=0.3. The reference r bret was not used to int erpret this result as mateo l/abnormal. [facility] [employer] [id number] 18:34:00 Test Item Value Reference Range Interpretation Comments Bili Total (test code = Bili Total) 0.6 0.2-1.3 [facility] [employer] [id number] 18:34:00 Test Item Value Reference Range Interpretation Comments Bili Indirect (test 0.5 See_Comment [Automa jw message] The code = Bili Indirect) system which generated this result tra nsmitted reference range : <=1.0. The reference r bret was not used to int erpret this result as normal/abnormal . [facility] [employer] [id number] 18:34:00 Test Item Value Reference Range Interpretation Comments AST (test code = AST) 23 See_Comment [Auto mated message] The system which ge nerated this result transmit jw reference range : <=37. The reference range was not used to interpr et this result as mateo l/abnormal. [facility] [employer] [id number] 18:34:00 Test Item Value Reference Range Interpretation Comments ALT (test code = ALT) 23 See_Comment [Auto mated message] The system which ge nerated this result transmit jw reference range : <=65. The reference range was not used to interpr et this result as mateo l/abnormal. [facility] [employer] [id number] 18:34:00 Test Item Value Reference Range Interpretation Comments Alk Phos (test code = Alk Phos) 161 39-136 [facility] [employer] [id number] 18:34:00 Test Item Value Reference Range Interpretation Comments Lipase Lvl (test code = Lipase Lvl) 202 73-393 [facility] [employer] [id number] 18:34:00 Test Item Value Reference Range Interpretation Comments Lactic Acid WB (test code = Lactic Acid 2.5 0.5-2.2 WB) [facility] [id number] 18:34:00 Test Item Value Reference Range Interpretation Comments AGAP (test code = AGAP) 17.3 10.0-20.0 [facility] CtoyevgBOWKTQZBSQAG5517-74-22 18:34:00 Test Item Value Reference Range Interpretation Comments Calcium Lvl (test code = Calcium Lvl) 9.9 8.5-10.5 [facility]/FREE T4 IF [id number] 04:03:00 Test Item Value Reference Range Interpretation Comments THYROID STIMULATING HORMONE 3.16 uIU/mL 0.35-4.94 (BEAKER) (test code = 772) BASIC METABOLIC [id number] 03:35:00 Test Item Value Reference Range Interpretation [...] 697) EGFR (BEAKER) (test 95 mL/min/1.73 ESTIMA JW GFR IS code = 1092) sq m NOT ACCURATE CREATININE CLEARANCE IN PREDICTING GLOMERULAR FILTRATION RATE . ESTIMATED GFR I S NOT APPLICABLE FOR DIALYSIS PATIEN TS. CBC W/PLT COUNT & AUTO [id number] 03:24:00 Test Item Value Reference Range Interpretation [...] 0-1 PERCENT (BEAKER) (test code = 2801) TROPONIN [id number] 20:57:00 Test Item Value Reference Range Interpretation [...] further evaluation with MRI is recommended. Signed: Fiona Quintanilla Verified Date/Time: 12/01/2017 18:41:06 Reading Location: [facility] Radiology Reading Room TROPONIN [id number] 17:00:00 Test Item Value Reference Range Interpretation [...] failure, acidosis, acute neurological disease, and persistent tachyarrhythmia.[id number] 16:23:00 Test Item Value Reference Range Interpretation Comments POTASSIUM (BEAKER) (test code = 3.7 meq/L 3.5-5.1 379) Check Serum Potassium level 2 hours after oral potassium replacement completed or 30 min after intravenous potassium replacement.[id number] 11:59:00 Test Item Value Reference Range Interpretation Comments MAGNESIUM (BEAKER) 2.2 mg/dL 1.6-2.6 Specimen slightly (test code = 627) hemolyzed [id number] 11:59:00 Test Item Value Reference Range Interpretation Comments PHOSPHORUS (BEAKER) 2.6 mg/dL 2.3-4.7 Specimen slightly (test code = 604) hemolyzed HEMOGLOBIN [id number] 11:49:00 Test Item Value Reference Range Interpretation Comments HEMOGLOBIN A1C (BEAKER) (test code = 6.0 % 4.3-6.1 368) TROPONIN [id number] 08:40:00 Test Item Value Reference Range Interpretation [...] acidosis, acute neurological disease, and persistent tachyarrhythmia.LIPID [id number] 04:39:00 Test Item Value Reference Range Interpretation Comments TRIGLYCERIDES (BEAKER) (test code = 119 mg/dL 540) CHOLESTEROL (BEAKER) (test code = 144 mg/dL 631) HDL CHOLESTEROL (BEAKER) (test code 26 mg/dL = 976) LDL CHOLESTEROL CALCULATED (BEAKER) 94 mg/dL (test code = 633) Triglyceride Reference Range: Low Risk <150 Borderline 150-199 High Risk 200- 499 Very High Risk >=500Cholesterol Reference Range: Low Risk <200 Borderline 200-239 High Risk >240HDL Cholesterol Reference Range: Low Risk >=60 High Risk <40LDL Cholesterol Reference Range: Optimal <100 Near Optimal 100-129 Borderline 130-159 High 160-189 Very High >=190 FastingBASIC METABOLIC [id number] 04:39:00 Test Item Value Reference Range Interpretation [...] 697) EGFR (BEAKER) (test 88 mL/min/1.73 ESTIMA JW GFR IS code = 1092) sq m NOT ACCURATE CREATININE CLEARANCE IN PREDICTING GLOMERULAR FILTRATION RATE . ESTIMATED GFR I S NOT APPLICABLE FOR DIALYSIS PATIEN TS. FastingCBC W/PLT COUNT & AUTO [id number] 04:25:00 Test Item Value Reference Range Interpretation [...] PERCENT (BEAKER) (test code = 2801) HEMOGLOBIN [id number] 22:29:00 Test Item Value Reference Range Interpretation Comments HEMOGLOBIN A1C (BEAKER) (test code = 5.9 % 4.3-6.1 368) VITAMIN B12 AND [id number] 18:47:00 Test Item Value Reference Range Interpretation Comments VITAMIN B12 (BEAKER) (test code = 1185 pg/mL 213-816 H 774) FOLATE (BEAKER) (test code = 362) 2.3 ng/mL >=7.0 L TROPONIN [id number] 18:18:00 Test Item Value Reference Range Interpretation [...] acute neurological disease, and persistent tachyarrhythmia.BASIC METABOLIC [id number] 18:10:00 Test Item Value Reference Range Interpretation [...] 697) EGFR (BEAKER) (test 86 mL/min/1.73 ESTIMA JW GFR IS code = 1092) sq m NOT ACCURATE CREATININE CLEARANCE IN PREDICTING GLOMERULAR FILTRATION RATE . ESTIMATED GFR I S NOT APPLICABLE FOR DIALYSIS PATIEN TS. CBC W/PLT COUNT & AUTO [id number] 17:52:00 Test Item Value Reference Range Interpretation [...] (BEAKER) (test code = 2801) BASIC METABOLIC [id number] 07:51:00 Test Item Value Reference Range Interpretation [...] 697) EGFR (BEAKER) (test 82 mL/min/1.73 ESTIMA JW GFR IS code = 1092) sq m NOT ACCURATE CREATININE CLEARANCE IN PREDICTING GLOMERULAR FILTRATION RATE . ESTIMATED GFR I S NOT APPLICABLE FOR DIALYSIS PATIEN TS. CBC W/PLT COUNT & AUTO [id number] 05:55:00 Test Item Value Reference Range Interpretation [...] = 2801) CBC W/PLT COUNT & AUTO [id number] 05:15:00 Test Item Value Reference Range Interpretation [...] (test code = 2801) CT, BRAIN, WITHOUT [id number] 15:31:00FINAL REPORT CT head without contrast 03/12/2017 3:29 PM CLINICAL HISTORY: StrokeTECHNIQUE: Axial noncontrast CT images through the head were obtained. This examination was performed according to our departmental dose optimization program, which includes automated exposure control,adjustment of the mA and/or kV according to patient size, and/or use of iterated reconstruction technique. COMPARISON: None available FINDINGS: There is no hemorrhage, extra-axial collection, mass, hydr ocephalus, or midline shift. There is a tiny infarct in the left caudate nucleus, with rare microvascular ischemia in the supratentorial white matter. There is atherosclerotic calcification of the intracranial arterial vasculature. There is generalized parenchymal volume loss. The visualized paranasalsinuses and mastoid air cells are well aerated. There are postsurgical changes in the left nasal bone and maxilla. The skull is otherwise intact. IMPRESSION: No intracranial hemorrhage or mass effect. Age-indeterminate left caudate nucleus infarct. Signed: Fiona Quintanilla Verified Date/Time: 03/12/2017 15:31:17 Reading Location: [address] Neuro Reading Room TROPONIN [id number] 15:26:00 Test Item Value Reference Range Interpretation Comments TROPONIN I (KYARA) (test code = 0.02 ng/mL 0.00-0.03 397) [...] acidosis, acute neurological disease, and persistent tachyarrhythmia.HEMOGLOBIN [id number] 12:38:00 Test Item Value Reference Range Interpretation Comments HEMOGLOBIN A1C (KYARA) (test code = 5.6 % 4.3-6.1 368) FastingRAD, CHEST, 1 VIEW, NON [id number] 10:06:00Reason for exam:->rule out pneumoniaShould this be performed at the bedside?->YesFINAL REPORT Two frontal chest images Discussion: No specific evidence of focalinfiltrate or consolidation. Heart size normal. Left chest pacemaker in place. No effusion or pneumothorax. There is however increased density of both lung apices right greater than left, and questionable abnormal density at the lateral right midlung region. These areas are suboptimally depicted with frontal view plain film. Consider follow-up PA and lateral chest imaging. Signed: Acacia Benites Verified Date/Time: 03/12/2017 10:06:57 Reading Location: [facility] Radiology Reading Room [id number] 09:08:00 Test Item Value Reference Range Interpretation Comments HOMOCYSTEINE (BEAKER) (test code 11.8 umol/L 5.1-15.4 = 642) FastingCREATINE KINASE (CK), TOTAL AND [id number] 08:55:00 Test Item Value Reference Range Interpretation Comments CREATINE KINASE TOTAL (BEAKER) 59 U/L 29-200 (test code = 380) CREATINE KINASE-MB (BEAKER) (test 1.0 ng/mL 0.0-6.6 code = 750) CREATINE KINASE-MB INDEX (BEAKER) 1.7 % (test code = 395) CK-MB Reference Range:<6.7 Normal6.7-10.0 Borderline>10.0 AbnormalFastingFastingTROPONIN [id number] 08:55:00 Test Item Value Reference Range Interpretation [...] acidosis, acute neurological disease, and persistent tachyarrhythmia.FastingLIPID [id number] 08:48:00 Test Item Value Reference Range Interpretation [...] High 160-189 Very High >=190 FastingBASIC METABOLIC [id number] 08:48:00 Test Item Value Reference Range Interpretation [...] 697) EGFR (BEAKER) (test 87 mL/min/1.73 ESTIMA JW GFR IS code = 1092) sq m NOT ACCURATE CREATININE CLEARANCE IN PREDICTING GLOMERULAR FILTRATION RATE . ESTIMATED GFR I S NOT APPLICABLE FOR DIALYSIS PATIEN TS. FastingCBC W/PLT COUNT & AUTO [id number] 08:24:00 Test Item Value Reference Range Interpretation [...] (test code = 2801) TSH/FREE T4 IF [id number] 03:38:00 Test Item Value Reference Range Interpretation Comments THYROID STIMULATING HORMONE 2.01 uIU/mL 0.35-4.94 (BEAKER) (test code = 772) VITAMIN B12 AND [id number] 03:38:00 Test Item Value Reference Range Interpretation Comments VITAMIN B12 (BEAKER) (test code = 1008 pg/mL 213-816 H 774) FOLATE (BEAKER) (test code = 362) 8.4 ng/mL >=7.0 CREATINE KINASE (CK), TOTAL AND [id number] 01:03:00 Test Item Value Reference Range Interpretation Comments CREATINE KINASE TOTAL (BEAKER) 66 U/L 29-200 (test code = 380) CREATINE KINASE-MB (BEAKER) (test 1.4 ng/mL 0.0-6.6 code = 750) CREATINE KINASE-MB INDEX (BEAKER) 2.1 % (test code = 395) CK-MB Reference Range:<6.7 Normal6.7-10.0 Borderline>10.0 AbnormalTROPONIN [id number] 01:03:00 Test Item Value Reference Range Interpretation [...] acute neurological disease, and persistent tachyarrhythmia.BASIC METABOLIC [id number] 00:56:00 Test Item Value Reference Range Interpretation [...] 697) EGFR (BEAKER) (test 87 mL/min/1.73 ESTIMA JW GFR IS code = 1092) sq m NOT ACCURATE CREATININE CLEARANCE IN PREDICTING GLOMERULAR FILTRATION RATE . ESTIMATED GFR I S NOT APPLICABLE FOR DIALYSIS PATIEN TS. PROTHROMBIN TIME/[id number] 00:27:00 Test Item Value Reference Range Interpretation Comments PROTIME (BEAKER) (test code = 17.2 seconds 11.7-14.7 H 759) INR (BEAKER) (test code = 370) 1.4 <=5.9 RECOMMENDED COUMADIN/WARFARIN INR THERAPY RANGESSTANDARD DOSE: 2.0 - 3.0 Includes: PROPHYLAXIS for venous thrombosis, systemic embolization; TREATMENT for venous thrombosis and/or pulmonary embolus.HIGH RISK: Target INR is 2.5-3.5 for patients with mechanical heart valves.CBC W/PLT COUNT & AUTO [id number] 00:01:00 Test Item Value Reference Range Interpretation [...] % 0-1 PERCENT (BEAKER) (test code = 2376)
--- NOTE | 2021-12-24 14:41 | RAD REPORT ---
EXAM DESCRIPTION: RAD - Chest Single View - 12/24/2021 2:25 pm CLINICAL HISTORY: MD cardoso Chest pain. COMPARISON: Chest Single View dated 07/20/2019; Chest Single View dated 02/20/2019; Chest Pa And Lat (2 Views) dated 11/22/2018; Chest Pa And Lat (2 Views) dated 10/24/2018 FINDINGS: Portable technique limits examination quality. The lungs are emphysematous but grossly clear. The heart is normal in size. No displaced fractures.Kervin lafleur lead pacer device. IMPRESSION: COPD.
[2021-12-24 14:43] LABS: Absolute Lymphocytes (CBC) 1.4 K/uL (0.7-4.9); Hematocrit 32.3 % (39.6-49.0); Lymphocytes % 18.7 % (15.3-44.8); MCV 78.9 fL (80-100); MPV 8.9 fL (7.6-11.3); RBC Red Blood Cell Count 4.09 M/uL (4.33-5.43)
[2021-12-24 14:48] LABS: Potassium 3.5 mmol/L (3.5-5.1); Troponin High Sensitivity 23.3 pg/mL (<58.9)
[2021-12-24] MEDS ORDERED: NITROGLYCERIN 0.4 MG/TAB SL ONE (15:47)
[2021-12-24] MEDS ORDERED: ONDANSETRON 4 MG/2 ML VIAL ONE (15:47)
--- NOTE | 2021-12-24 15:53 | ER ---
Nurse's Notes [facility] Name: Maurice Morfin Age: 71 yrs Sex: Male : 1950 Arrival Date: 12/24/2021 Time: 13:35 Bed 28 Private MD: Diagnosis: Chest pain, unspecified Presentation: 12/24 13:43 Chief complaint: Patient states: Intermittent chest pain since 1300 today. Coronavirus ld1 screen: At this time, the client does not indicate any symptoms associated with coronavirus-19. Ebola Screen: No symptoms or risks identified at this time. 13:43 Method Of Arrival: Wheelchair ld1 13:50 Initial Sepsis Screen: Does the patient meet any 2 criteria? No. Patient's initial ld1 sepsis screen is negative. Does the patient have a suspected source of infection? No. Patient's initial sepsis screen is negative. Risk Assessment: Do you want to hurt yourself or someone else? Patient reports no desire to harm self or others. Onset of symptoms was December 24, 2021. 13:50 Acuity: WAYLON 3 ld1 Triage Assessment: 13:51 General: Appears in no apparent distress. comfortable, Behavior is calm, cooperative, ld1 appropriate for age. Pain: Complains of pain in chest Pain does not radiate. Pain currently is 7 out of 10 on a pain scale. Quality of pain is described as sharp, shooting, throbbing. EENT: No signs and/or symptoms were reported regarding the EENT system. Neuro: Level of Consciousness is awake, alert, obeys commands, Oriented to person, place, time, situation, Appropriate for age. Cardiovascular: Capillary refill < 3 seconds Patient's skin is warm and dry. Chest pain is described as mild. Respiratory: Airway is patent Respiratory effort is even, unlabored. GI: Abdomen is flat, non-distended. : No signs and/or symptoms were reported regarding the genitourinary system. Derm: No signs and/or symptoms reported regarding the dermatologic system. Musculoskeletal: No signs and/or symptoms reported regarding the musculoskeletal system. Historical: - Allergies: 13:51 Codeine; ld1 - PMHx: 13:51 COPD; Cholelithiasis; CVA; Dementia; enlarged prostate; Hernia; Hypertension; CA; PVD; ld1 TIA; - Immunization history:: Adult Immunizations up to date, Client reports receiving the 2nd dose of the Covid vaccine. - Social history:: Smoking status: Patient denies any tobacco usage or history of. Patient/guardian denies using alcohol. Screenin:15 Abuse screen: Denies threats or abuse. Denies injuries from another. Nutritional bp screening: No deficits noted. Tuberculosis screening: No symptoms or risk factors identified. Fall Risk None identified. Assessment: 14:23 General: Appears uncomfortable, Behavior is cooperative, appropriate for age. Pain: mb9 Complains of pain in chest Pain does not radiate. Pain currently is 7 out of 10 on a pain scale. Quality of pain is described as burning, aching, Pain began. Neuro: Level of Consciousness is awake, alert, obeys commands, Oriented to person, place, time, situation, Appropriate for age Weakness in left arm(s) Speech is normal, Facial symmetry appears normal, Pupils are PERRLA. Cardiovascular: Reports chest pain, nausea, vomiting, since 1300 Heart tones S1 S2 present Rhythm is atrial fibrillation. Respiratory: Airway is patent Respiratory effort is labored, Respiratory pattern is tachypnea Breath sounds with wheezes in left lower lobe, right lower lobe, left posterior lower lobe, right posterior middle lobe and right posterior lower lobe. GI: Abdomen is flat, Bowel sounds present X 4 quads. : No signs and/or symptoms were reported regarding the genitourinary system. EENT: No signs and/or symptoms were reported regarding the EENT system. Derm: Skin is pink, warm \T\ dry. Bruising that is dark purple, on RLQ. Musculoskeletal: Range of motion: intact in all extremities. 14:23 Reassessment: pt states he has pacemaker but doesn't know which kind. mb9 15:52 Reassessment: Patient and/or family updated on plan of care and expected duration. Pain bp level reassessed. Patient states symptoms have improved. 17:00 General: Appears in no apparent distress. comfortable, Behavior is calm, cooperative, mb9 appropriate for age. Pain: Denies pain. Neuro: Level of Consciousness is awake, alert, obeys commands, Oriented to person, place, time, situation, Appropriate for age. Cardiovascular: Heart tones S1 S2 present Rhythm is atrial fibrillation Chest pain is denied. Respiratory: Airway is patent Respiratory effort is even, unlabored, Respiratory pattern is regular. Derm: Skin is pink, warm \T\ dry. 18:30 General: Appears in no apparent distress. comfortable, Behavior is calm, cooperative, mb9 appropriate for age. Pain: Denies pain. Neuro: Level of Consciousness is awake, alert, obeys commands, Oriented to person, place, time, situation, Appropriate for age. Cardiovascular: Heart tones S1 S2 present Rhythm is regular Chest pain is denied. Cardiovascular: Rhythm is atrial fibrillation. Respiratory: Airway is patent Respiratory effort is even, unlabored, Respiratory pattern is regular, symmetrical, Breath sounds with wheezes in left lower lobe, right lower lobe, left posterior lower lobe, right posterior middle lobe and right posterior lower lobe. Derm: Skin is pink, warm \T\ dry. 18:33 Reassessment: pt currently sitting in bed watching TV and eating dinner. mb9 19:30 Reassessment: Patient and/or family updated on plan of care and expected duration. Pain vc1 level reassessed. Patient states symptoms have improved. 21:00 Reassessment: Patient and/or family updated on plan of care and expected duration. Pain vc1 level reassessed. Patient is alert, oriented x 3, equal unlabored respirations, skin warm/dry/pink. Patient denies pain at this time. 22:00 Reassessment: No changes from previously documented assessment. Patient and/or family vc1 updated on plan of care and expected duration. Pain level reassessed. 23:00 Reassessment: No changes from previously documented assessment. Patient and/or family vc1 updated on plan of care and expected duration. Pain level reassessed. Patient denies pain at this time. Vital Signs: 13:43 BP 116 / 85; Pulse 86; Resp 24; Temp 97.5(TE); Pulse Ox 96% on R/A; Weight 61.69 kg; ld1 Height 5 ft. 8 in. (172.72 cm); Pain 7/10; 14:13 BP 136 / 83; Pulse 109; Resp 26; Pulse Ox 92% on 2 lpm NC; Pain 7/10; mb9 15:51 BP 124 / 83; Pulse 68; Resp 25; Pulse Ox 95% ; bp 17:00 BP 116 / 69; Pulse 84; Resp 20; Pulse Ox 100% on 2 lpm NC; Pain 0/10; mb9 18:30 BP 123 / 80; Pulse 77; Resp 20; Pulse Ox 100% on 2 lpm NC; mb9 21:49 BP 101 / 55; Pulse 60; Resp 16 S; Pulse Ox 100% on R/A; as6 12/25 00:00 BP 112 / 59; Pulse 65; Resp 30; Pulse Ox 100% on 2 lpm NC; vc1 12/24 13:43 Body Mass Index 20.68 (61.69 kg, 172.72 cm) ld1 ED Course: 12/24 13:35 Patient arrived in ED. as 13:46 Lety Tovar, RN is Primary Nurse. mb9 13:51 Triage completed. ld1 13:51 Arm band placed on right wrist. ld1 13:54 Pipo Kimble NP is PHCP. pm1 13:54 Caio Cruz MD is Attending Physician. pm1 14:11 Basic Metabolic Panel Sent. mb9 14:11 CBC with Diff Sent. mb9 14:11 Troponin HS Sent. mb9 14:12 Inserted saline lock: 20 gauge in right hand, using aseptic technique. Blood collected. mb9 14:15 Patient has correct armband on for positive identification. Bed in low position. Call bp light in reach. Side rails up X2. Client placed on continuous cardiac and pulse oximetry monitoring. NIBP monitoring applied. 14:27 XRAY Chest (1 view) In Process Unspecified. EDMS 14:35 LFT's Sent. mb9 14:35 Magnesium Sent. mb9 14:35 NT PRO-BNP Sent. mb9 14:35 PT-INR Sent. mb9 15:51 Zeferino Bradshaw MD is Hospitalizing Provider. pm1 16:40 SARS-COV-2 Antigen Rapid Sent. mb9 12/25 00:00 No provider procedures requiring assistance completed. Patient admitted, IV remains in vc1 place. Oxygen administration via nasal cannula \T\ 2L/min. Administered Medications: 12/24 14:35 CANCELLED (Physician Discretion): Zofran (Ondansetron) 4 mg PO once pm1 15:50 Drug: Nitroglycerin 0.4 mg Route: Sublingual; bp 15:50 Drug: Zofran (Ondansetron) 4 mg Route: IVP; Site: right hand; bp 16:01 Not Given (Other Intervention Used): Lopressor (metoprolol) 5 mg IVP every 5 minutes; bp Hold for SBP < 100 or HR < 60. x3 16:01 Drug: Lopressor (metoprolol TARTRATE)) 25 mg Route: PO; bp 16:01 Drug: fentaNYL (PF) 25 mcg Route: IVP; Site: right hand; bp Medication: 12/25 00:00 VIS not applicable for this client. vc1 Outcome: 12/24 15:53 Decision to Hospitalize by Provider. pm1 12/25 00:00 Admitted to ER Hold. Please see [facility] for further documentation. vc1 Condition: good Instructed on the need for admit. 14:03 Patient left the ED. ss Signatures: Dispatcher [employer] EDMS Adri Xiao Shelby, RN RN ss Pipo Kimble, ANNY THERAPIST PHYSICAL pm1 Pablo High RN RN bp Tracie Arellano RN RN ld1 Dawood Randolph RN RN as6 Vandana Nelson RN RN vc1 Lety Tovar RN RN mb9 Corrections: (The following items were deleted from the chart) 12/24 13:53 13:43 BP 116 / 85; ld1 ld1 18:36 17:00 Respiratory: Airway is patent Respiratory effort is even, unlabored, Respiratory mb9 pattern is tachypnea mb9 18:45 14:23 Cardiovascular: Reports chest pain, nausea, vomiting, since 1300 Heart tones S1 mb9 S2 present Rhythm is atrial fibrillation mb9
--- NOTE | 2021-12-24 15:54 | EDPHYS ---
Physician Documentation [facility] Name: Maurice Morfin Age: 71 yrs Sex: Male : 1950 Arrival Date: 12/24/2021 Time: 13:35 Bed 28 Private MD: ED Physician Caio Cruz HPI: 12/24 14:35 This 71 yrs old Male presents to ER via Wheelchair with complaints of Chest Pain. pm1 14:35 The patient or guardian reports chest pain that is located primarily in the mid-sternal pm1 area. Onset: today, at 13:00. The pain does not radiate. Associated signs and symptoms: Pertinent positives: nausea, vomit x 1. At his baseline shortness of breath. The chest pain is described as a pressure. Duration: The patient or guardian reports a single episode, that is still ongoing. Modifying factors: The symptoms are alleviated by nothing. the symptoms are aggravated by nothing. Severity of pain: in the emergency department the pain is unchanged. The patient has not experienced similar symptoms in the past. The patient has been recently seen by a physician: Dr. Fernandez last week for the first time. Had outpatient stress test and echo ordered. Not yet completed. Historical: - Allergies: 13:51 Codeine; ld1 - PMHx: 13:51 COPD; Cholelithiasis; CVA; Dementia; enlarged prostate; Hernia; Hypertension; MD; PVD; ld1 TIA; - Immunization history:: Adult Immunizations up to date, Client reports receiving the 2nd dose of the Covid vaccine. - Social history:: Smoking status: Patient denies any tobacco usage or history of. Patient/guardian denies using alcohol. ROS: 14:35 Constitutional: Negative for fever, chills, and weight loss. pm1 14:35 Back: Negative for injury and pain, MS/Extremity: Negative for injury and deformity, Skin: Negative for injury, rash, and discoloration, Neuro: Negative for headache, weakness, numbness, tingling, and seizure. 14:35 Cardiovascular: Positive for chest pain, Negative for palpitations. 14:35 Respiratory: Positive for shortness of breath. 14:35 Abdomen/GI: Positive for nausea and vomiting, Negative for abdominal pain, diarrhea. 14:35 All other systems are negative. Exam: 14:35 Constitutional: This is a well developed, well nourished patient who is awake, alert, pm1 and in no acute distress. Head/Face: Normocephalic, atraumatic. 14:35 Back: No spinal tenderness. No costovertebral tenderness. Full range of motion. Skin: Warm, dry with normal turgor. Normal color with no rashes, no lesions, and no evidence of cellulitis. MS/ Extremity: Pulses equal, no cyanosis. Neurovascular intact. Full, normal range of motion. 14:35 Eyes: Exam is negative for acute changes, Periorbital structures: no acute changes, Extraocular movements: no acute changes, Conjunctiva: no acute changes, no injection. 14:35 Cardiovascular: Rate: tachycardic, actual rate is 108 bpm, Rhythm: regular, Pulses: no pulse deficits are appreciated, Heart sounds: normal, normal S1and S2, Edema: is not appreciated. 14:35 Respiratory: Exam negative for acute changes, respiratory distress, shortness of breath, Breath sounds: are clear throughout. 14:35 Abdomen/GI: Exam negative for acute changes, Inspection: abdomen appears normal, Palpation: abdomen is soft and non-tender, in all quadrants. 14:35 Neuro: Exam negative for acute changes, Orientation: is normal, Mentation: is normal, Motor: is normal, moves all fours. Vital Signs: 13:43 BP 116 / 85; Pulse 86; Resp 24; Temp 97.5(TE); Pulse Ox 96% on R/A; Weight 61.69 kg; ld1 Height 5 ft. 8 in. (172.72 cm); Pain 7/10; 14:13 BP 136 / 83; Pulse 109; Resp 26; Pulse Ox 92% on 2 lpm NC; Pain 7/10; mb9 15:51 BP 124 / 83; Pulse 68; Resp 25; Pulse Ox 95% ; bp 17:00 BP 116 / 69; Pulse 84; Resp 20; Pulse Ox 100% on 2 lpm NC; Pain 0/10; mb9 18:30 BP 123 / 80; Pulse 77; Resp 20; Pulse Ox 100% on 2 lpm NC; mb9 21:49 BP 101 / 55; Pulse 60; Resp 16 S; Pulse Ox 100% on R/A; as6 12/25 00:00 BP 112 / 59; Pulse 65; Resp 30; Pulse Ox 100% on 2 lpm NC; vc1 12/24 13:43 Body Mass Index 20.68 (61.69 kg, 172.72 cm) ld1 MDM: 12/24 13:55 Patient medically screened. john paul 14:35 Data reviewed: vital signs. Data interpreted: Pulse oximetry: on room air is 96 %. pm1 Interpretation: normal. 15:17 Physician consultation: Will Fernandez MD in the emergency department to see patient at pm1 15:17, would like to be updated on troponin when resulted. Agrees with admission and will consult. 15:25 Counseling: I had a detailed discussion with the patient and/or guardian regarding: the pm1 need for further work-up and treatment in the hospital. 12/24 13:52 Order name: Basic Metabolic Panel; Complete Time: 14:57 mb9 12/24 13:52 Order name: CBC with Diff; Complete Time: 14:57 mb9 12/24 13:52 Order name: Troponin HS; Complete Time: 14:57 mb9 12/24 14:19 Order name: LFT's; Complete Time: 17:39 pm1 12/24 14:19 Order name: Magnesium; Complete Time: 17:39 pm1 12/24 14:19 Order name: NT PRO-BNP; Complete Time: 17:39 pm1 12/24 14:19 Order name: PT-INR; Complete Time: 16:04 pm1 12/24 16:23 Order name: SARS-COV-2 Antigen Rapid; Complete Time: 17:39 bd 12/24 17:19 Order name: Hemoglobin A1c; Complete Time: 19:14 EDMS 12/24 17:26 Order name: Magnesium; Complete Time: 20:08 EDMS 12/24 17:26 Order name: NT PRO-BNP; Complete Time: 20:08 EDMS 12/24 17:26 Order name: Phosphorus; Complete Time: 20:08 EDMS 12/24 17:26 Order name: Protime (+INR) EDMS 12/24 17:26 Order name: T4 Free; Complete Time: 20:08 EDMS 12/24 13:52 Order name: XRAY Chest (1 view); Complete Time: 14:57 mb9 12/24 17:19 Order name: Echo with Doppler EDMS 12/24 17:26 Order name: Thyroid Stimulating Hormone; Complete Time: 20:08 EDMS 12/24 17:26 Order name: Urinalysis EDMS 12/24 17:26 Order name: Basic Metabolic Panel EDMS 12/24 17:26 Order name: Basic Metabolic Panel EDMS 12/24 17:26 Order name: CBC with Automated Diff EDMS 12/24 17:26 Order name: CBC with Automated Diff EDMS 12/24 20:41 Order name: Troponin High Sensitivity EDMS 12/24 20:41 Order name: Transferrin Sat/Iron Binding EDMS 12/24 20:41 Order name: Ferritin EDMS 12/25 02:43 Order name: CBC Smear Scan EDMS 12/25 02:47 Order name: Troponin High Sensitivity EDMS 12/25 02:53 Order name: Magnesium EDMS 12/25 04:35 Order name: Urine Dipstick-Ancillary EDMS 12/25 09:24 Order name: Potassium EDMS 12/24 13:52 Order name: EKG; Complete Time: 13:53 mb9 12/24 13:52 Order name: Cardiac monitoring; Complete Time: 14:00 9 12/24 13:52 Order name: EKG - Nurse/Tech; Complete Time: 14:00 9 12/24 13:52 Order name: IV Saline Lock; Complete Time: 14:11 mb9 12/24 13:52 Order name: Labs collected and sent; Complete Time: 14:11 mb9 12/24 13:52 Order name: O2 Per Protocol; Complete Time: 14:00 mb9 12/24 13:52 Order name: O2 Sat Monitoring; Complete Time: 14:00 9 12/24 14:49 Order name: Labs - recollect needed: recollect blue and light green; Complete Time: bd 15:44 12/24 17:12 Order name: CONS Physician Consult EDMA 12/24 17:26 Order name: Heart Healthy EDMS EC:56 Rate is 91 beats/min. Rhythm is irregular, Normal Sinus Rhythm with Occasional PVCs. pm1 QRS Duncan is Normal. CT interval is normal. QRS interval is normal. QT interval is normal. No Q waves. T waves are Normal. No ST changes noted. Clinical impression: NSR w/ Non-specific ST/T Changes. Administered Medications: 14:35 CANCELLED (Physician Discretion): Zofran (Ondansetron) 4 mg PO once pm1 15:50 Drug: Nitroglycerin 0.4 mg Route: Sublingual; bp 15:50 Drug: Zofran (Ondansetron) 4 mg Route: IVP; Site: right hand; bp 16:01 Not Given (Other Intervention Used): Lopressor (metoprolol) 5 mg IVP every 5 minutes; bp Hold for SBP < 100 or HR < 60. x3 16:01 Drug: Lopressor (metoprolol TARTRATE)) 25 mg Route: PO; bp 16:01 Drug: fentaNYL (PF) 25 mcg Route: IVP; Site: right hand; bp Disposition Summary: 12/24/21 15:53 Hospitalization Ordered Hospitalization Status: Observation pm1 Provider: Zeferino Bradshaw pm1 Condition: Stable pm1 Problem: new pm1 Symptoms: have improved pm1 Bed/Room Type: Standard pm1 Location: [facility] ER HOLD(12/24/21 21:00) cg Room Assignment: ERHOLD-(12/24/21 21:00) cg Diagnosis - Chest pain, unspecified pm1 Forms: - Medication Reconciliation Form pm1 - SBAR form pm1 Addendum: 12/30/2021 03:58 Co-signature as Attending Physician, Caio Cruz MD I agree with the assessment and c hull plan of care. Signatures: Dispatcher [employer] EDMS Brina Diamond Corey, MD MD cha Garcia, Cindy, RN RN cg Pipo Kimble, ANNY AIR DEFENSE SPECIALIST pm1 Pablo High RN RN bp Tracie Arellano RN RN ld1 Lety Tovar RN RN mb9 Corrections: (The following items were deleted from the chart) 12/24 14:35 14:35 Zofran (Ondansetron) 4 mg PO once ordered. pm1 pm1 21:00 15:53 Telemetry/MedSurg (observation) pm1 cg 21:00 15:53 pm1 cg
[2021-12-24 15:55] LABS: Protime INR 1.15
[2021-12-24] MEDS ORDERED: FENTANYL CITR 100 MCG/2 ML ONE (15:57)
[2021-12-24] MEDS ORDERED: METOPROLOL TAR 25 MG TAB ONE (15:57)
[2021-12-24 16:22] LABS: ALT/SGPT 15 U/L (12-78); AST/SGOT 13 U/L (15-37); Albumin 2.7 g/dL (3.4-5.0); Alkaline Phosphatase 89 U/L (45-117); Bilirubin Total 0.2 mg/dL (0.2-1.0); Magnesium 1.7 mg/dL (1.8-2.4); NT PRO-BNP 1902 pg/mL (<125); Protein, Total 6.6 g/dL (6.4-8.2)
[2021-12-24 17:00] LABS: Bilirubin Direct < 0.1 mg/dL (0-0.2)
[2021-12-24 17:01] LABS: SARS-CoV-2 Antigen Rapid Res Negative (Negative)
[2021-12-24] MEDS ORDERED: ACETAMINOPHEN 325 MG TABLET PO PRN (17:14)
[2021-12-24] MEDS ORDERED: HYDROCODONE/APAP 5/325 MG TAB PO PRN (17:14)
[2021-12-24] MEDS ORDERED: GUAIFENESIN/CODEINE 5ML UCUP PO PRN (17:17)
[2021-12-24] MEDS ORDERED: ONDANSETRON 4 MG/2 ML VIAL IV PRN (17:23)
--- NOTE | 2021-12-24 17:24 | P.HP ---
Certification for Inpatient Patient admitted to: Observation With expected LOS: <2 Midnights Patient will require the following post-hospital care: None Practitioner: I am a practitioner with admitting privileges, knowledge of patient current condition, hospital course, and medical plan of care. Services: Services provided to patient in accordance with Admission requirements found in Title 42 Section 412.3 of the Code of Federal Regulations Patient History Date of Service: 12/24/21 Reason for admission: Chest pain. History of Present Illness: Patient is a 71-year-old male with a past medical history significant for COPD, CVA, hypertension, BPH, CAD, PVD, HLD, dementia, PA who presents with complaint of chest pain onset this morning. Patient reported that chest pain is located in the left chest wall, rated pain as 7/10 in severity and described pain as sharp in quality. Patient took 1 tablet of nitroglycerin and patient started experiencing nausea and vomiting. Patient reported associated signs and symptoms of diaphoresis, fatigue and generalized malaise. Patient denies any other signs and symptoms. Symptoms are aggravated or relieved by nothing. Family decided to bring patient to the hospital for medical evaluation. Allergies codeine Adverse Reaction (Verified 07/20/19 18:09) UNKNOWN Home Medications: Atorvastatin Calcium [Lipitor] 80 mg PO BEDTIME 05/18/18 Clopidogrel Bisulfate [Plavix*] 75 mg PO DAILY 05/18/18 Gabapentin 300 mg PO TID 05/18/18 Losartan/Hydrochlorothiazide [Losartan-Hctz 100-25 mg Tab] 1 tab PO DAILY 05/18/18 Pantoprazole Sodium [Protonix] 40 mg PO [id number] 02/20/19 Sertraline HCl 50 mg PO DAILY 02/20/19 Tamsulosin HCl [Flomax] 0.4 mg PO DAILY 02/20/19 Donepezil HCl 1 tab PO BEDTIME 07/20/19 Topiramate 2 tab PO BID 07/20/19 Carvedilol [Coreg] 3.125 mg PO BID #60 tablet 07/21/19 - Past Medical/Surgical History Diabetic: No -: COPD -: Pneumonia - childhood -: Skin CA - arms -: Spinal meningitis - childhood -: PA -: Stroke -: BPH -: HTN -: Dementia -: Hernia -: PACEMAKER PLACEMENT -: STENT PLACEMENT (HEART AND RIGHT LEG) -: HERNIA REPAIR - L. side -: REMOVED skin CANCERS L arm -: pacemaker -: gallbladder removal - Family History Mother -: Heart disease, Hypertension, Stroke, Cancer, Other (see notes) Notes: ovarian CA Father -: Lung disease - Social History Smoking Status: Former smoker Alcohol use: No CD- Drugs: No Caffeine use: Yes Place of Residence: Home Review of Systems General: Malaise, Other (Diaphoresis, fatigue ) Eyes: Unremarkable ENT: Unremarkable Respiratory: Wheezing Cardiovascular: Chest Pain Gastrointestinal: Nausea, Vomiting Genitourinary: Unremarkable Musculoskeletal: Unremarkable Integumentary: Unremarkable Neurological: Unremarkable Lymphatics: Unremarkable Physical Examination - Physical Exam General: Alert, Oriented x3, Cooperative, Mild distress HEENT: Atraumatic, Normocephalic, PERRLA Neck: Supple, 2+ carotid pulse no bruit, JVD not distended, Without JVD or thyroid abnormality Respiratory: Diminished, Expiratory wheezes Cardiovascular: No edema, Normal pulses Capillary refill: <2 Seconds Gastrointestinal: Normal bowel sounds, Soft and benign Musculoskeletal: No clubbing, No contractures, No erythema Integumentary: No rashes, No breakdown, No significant lesion, No erythema Neurological: Normal speech, Normal tone, Normal affect - Studies Laboratory Data (last 24 hrs) 12/24/21 15:43: PT 12.7 H, INR 1.15 12/24/21 15:43: Magnesium 1.7 L, Total Bilirubin 0.2, AST 13 L, ALT 15, Alkaline Phosphatase 89 12/24/21 14:09: WBC 7.30, Hgb 10.2 L, Hct 32.3 L, Plt Count 160 12/24/21 14:09: Sodium 134 L, Potassium 3.5, BUN 8, Creatinine 0.93, Glucose 112 H Assessment and Plan - Plan --Chest pain. To rule out ACS. Will trend serial troponin--currently negative. Echocardiogram pending to assess LV\valvular function and wall motion. Cardiology consulted. We will await further recommendation from felt dyeing machine tender. --Suspected systolic or diastolic CHF exacerbation. BNP elevated-- 1902. Echocardiogram pending for further evaluation. Patient placed on diuresis with Lasix. Daily weight and strict I/O. --COPD. Stable. Continue O2 therapy and nebulizer treatment with Albuterol as needed --Chronic respiratory failure. Patient on home O2 therapy at 2 L/min. Continue current treatment regimen. --Hypomagnesemia. Patient placed on mag oxide x1 dose. Will reassess level in a.m. --HLD. Continue statin -- History of PA\CAD\PVD\CVA. Continue aspirin, Plavix and statin. --Dementia. Stable. Continue home medication and supportive care. --Hypertension. Stable. Continue home medications. --BPH. Continue Flomax. --Microcytic anemia. Likely iron deficiency anemia. We will get some iron studies. H&H stable. We will continue monitor hemoglobin and transfuse if less than 7.0. --CKD 2. Stable. We will continue monitor renal functions. -- Nausea vomiting. Antiemetics on board. Continue supportive care. --GERD. Continue Protonix. --DVT prophylaxis with heparin subQ. Discharge Plan: Home Plan to discharge in: 48 Hours - Advance Directives Does patient have a Living Will: No Does patient have a Durable POA for Healthcare: No - Code Status/Comfort Care Code Status Assessed: Yes Code Status: Full Code Physician Review: Patient Assessed, Agree with Above Assessment and Plan Critical Care: No
[2021-12-24] MEDS ORDERED: ASPIRIN 81 MG CHEWABLE TABLET PO ONE (18:00)
--- NOTE | 2021-12-24 18:01 | CON ---
Date of Consultation: 12/24/2021 Reason For Consultation: Chest pain. History Of Present Illness: A 71-year-old male, a patient of mine, in the office seen him for the fi rst time this past week and planned for a stress test. He comes in with chest pain, retrosternal, no radiation, not related to exertion with mild shortness of breath. No nausea, vomiting, diarrhea. N o diaphoresis. Past Medical History: COPD, history of CVA, hypertension, large prostate, coronary artery disease, p eripheral vascular disease, status post cardiac stents in his lower extremities. Medications: Refer to reconciliation sheet for detailed list. Allergies: CODEINE. Family History: No premature coronary artery disease or cancer. Social History: Does not drink or use any drugs. Review of Systems: All systems reviewed and they were negative except for what mentioned in HPI. Physical Examination: Vital Signs: Reviewed. Head and Neck: Pupils are equal, reactive to light. Intact eye movements. No JVD. No cervical lym phadenopathy. Neck is supple. Thyroid is not enlarged. Lungs: Clear to auscultation bilaterally. No rhonchi, wheezing, or crackles. No accessory muscle u se. Heart: Irregular. No extra sounds. Abdomen: Soft, nontender. Bowel sounds positive. No organomegaly. No masses or hernia. No rigidi ty or rebound. Extremities: No clubbing or cyanosis. Intact pulses. Skin: No rash. Neurologic: Alert, awake, oriented x3. No acute focal deficits appreciated. Lymph Nodes: No cervical or axillary lymphadenopathy. Investigations: His first troponin was 23, which was negative. BUN is 8, creatinine 0.93. NT-proBN P is 1902 and the potassium is 3.5. Hemoglobin is 10.2. EKG without acute specific abnormalities. Assessment And Recommendations: 1.Chest pain. First cardiac enzyme is negative. Start the patient on baby aspirin and do 2 more se ts of cardiac enzymes to observe on telemetry and further plan and recommendation based on the heart enzymes. In the interim, can use a nitroglycerin p.r.n. for chest pain control as well as morphine s ulfate. 2.Dyslipidemia. Continue statin with Lipitor 80 mg at bedtime. 3.Hypertension. Blood pressure is controlled. SR/MODL Voice ID: [id number] Report ID: [id number]
[2021-12-24] MEDS ORDERED: MAGNESIUM OXIDE 400 MG TAB PO ONE (19:18)
[2021-12-24 19:31] LABS: Magnesium 1.7 mg/dL (1.8-2.4); Phosphorus 3.1 mg/dL (2.5-4.9); Thyroid Stimulating Hormone 1.33 uIU/mL (0.360-3.740)
[2021-12-24] MEDS ORDERED: ALBUTEROL 2.5 MG/3 ML NEB SOL NEB PRN (19:33)
[2021-12-24 19:38] LABS: Protime INR 0.87
[2021-12-24 20:41] LABS: Ferritin 18.8 ng/mL (26-388); Troponin High Sensitivity 21.2 pg/mL (<58.9)
[2021-12-24] MEDS: GABAPENTIN 300 MG CAP PO SCH (21:00)
[2021-12-24] MEDS: carvediloL 3.125 MG TAB PO SCH (21:00)
[2021-12-24] MEDS ORDERED: ATORVASTATIN 40 MG TAB PO SCH (21:00)
[2021-12-24] MEDS: HEPARIN 5000 UNIT/ML 1 ML VIAL SQ SCH (21:00)
[2021-12-24] MEDS ORDERED: ATORVASTATIN 80 MG TAB PO SCH (21:00)
[2021-12-24] MEDS ORDERED: DONEPEZIL HCL 5 MG TAB PO SCH (21:00)
[2021-12-24 22:53] VITALS: O2SAT 99
[2021-12-25] MEDS: TOPIRAMATE 25 MG TAB PO SCH ×2 (01:00→10:27)
[2021-12-25 02:22] LABS: Absolute Lymphocytes (CBC) 1.6 K/uL (0.7-4.9); Hematocrit 27.3 % (39.6-49.0); Lymphocytes % 32.4 % (15.3-44.8); MCV 78.2 fL (80-100)
[2021-12-25 02:42] LABS: Anisocytosis 2+; Blood Morphology Comment NOTED (NOT SEEN); Hypochromasia 1+; Ovalocytes 1+; Platelet Estimate DECR; Teardrop Cell 1+; White Blood Cell Scan OK (OK)
[2021-12-25 02:53] LABS: Magnesium 1.7 mg/dL (1.8-2.4); Potassium 3.7 mmol/L (3.5-5.1)
[2021-12-25 03:29] VITALS: BMI 20.7
[2021-12-25] MEDS ORDERED: MAGNESIUM SULFATE 1 gm IVPB 1 GM/100 ML BAG IV ONE ×2 (03:38→04:17)
[2021-12-25] MEDS ORDERED: POTASSIUM 25 MEQ EFFERV TAB PO ONE (03:43)
[2021-12-25] MEDS ORDERED: KCL 20 MEQ/100 mL IVPB 20 MEQ/100 ML BAG IV SCH (04:00)
[2021-12-25] MEDS ORDERED: POTASSIUM 25 MEQ EFFERV TAB ONE (04:17)
[2021-12-25 04:35] LABS: Urine Blood Negative (Negative); Urine Glucose Negative (Negative); Urine Protein Trace (Negative); Urine Specific Gravity 1.025 (1.005-1.030); Urine pH 6.5 (5.0-7.0)
[2021-12-25] MEDS ORDERED: HOME MED 1 EA UNK (Pantoprazole Sodium [Protonix] 20 MG Tablet.Dr) PO SCH (06:00)
[2021-12-25] MEDS ORDERED: PANTOPRAZOLE 40MG TABLET PO SCH (06:00)
[2021-12-25] MEDS ORDERED: PANTOPRAZOLE 40MG TABLET PO ONE (06:08)
[2021-12-25] MEDS ORDERED: INFLUENZA VACCINE (for 6+ mo) 0.5 ML DOSE IMVAC ONE (08:00)
[2021-12-25] MEDS ORDERED: HOME MED 1 EA UNK (Losartan/Hydrochlorothiazide [Losartan-Hctz 100-25 Mg Tab] 1 EACH Table PO SCH (09:00)
[2021-12-25] MEDS ORDERED: FUROSEMIDE 40 MG/4 ML VIAL IV SCH (09:00)
[2021-12-25] MEDS ORDERED: CLOPIDOGREL 75 MG TABLET PO SCH (09:00)
[2021-12-25] MEDS ORDERED: SERTRALINE HCL 50 MG TAB PO SCH (09:00)
[2021-12-25] MEDS ORDERED: LOSARTAN/HCTZ 50-12.5 PO SCH (09:00)
[2021-12-25] MEDS: carvediloL 3.125 MG TAB PO SCH (09:00)
[2021-12-25] MEDS ORDERED: TAMSULOSIN 0.4 MG SR CAP PO SCH (09:00)
[2021-12-25] MEDS: HEPARIN 5000 UNIT/ML 1 ML VIAL SQ SCH (09:00)
[2021-12-25] MEDS ORDERED: ASPIRIN EC 81 MG TAB PO SCH (09:00)
[2021-12-25] MEDS ORDERED: carvediloL 6.25 MG TAB ONE (09:40)
[2021-12-25] MEDS ORDERED: FUROSEMIDE 40 MG/4 ML VIAL ONE (09:41)
[2021-12-25] MEDS ORDERED: GABAPENTIN 300 MG CAP ONE (09:41)
[2021-12-25] MEDS ORDERED: CLOPIDOGREL 75 MG TABLET ONE (09:41)
[2021-12-25] MEDS ORDERED: TAMSULOSIN 0.4 MG SR CAP ONE (09:41)
[2021-12-25] MEDS ORDERED: ASPIRIN EC 81 MG TAB PO ONE (09:41)
[2021-12-25] MEDS ORDERED: LOSARTAN POTASSIUM 50 MG TABLET ONE (09:47)
[2021-12-25] MEDS ORDERED: hydroCHLOROthiazide 25 MG TAB ONE (09:47)
[2021-12-25] MEDS: GABAPENTIN 300 MG CAP PO SCH (09:56)
[2021-12-25] MEDS ORDERED: SOD FERRIC GLUC COMPLX/SUCROSE 125 MG in NA CHLORIDE 0.9% 100 ML IV ONE (10:41)
[2021-12-25] MEDS ORDERED: ALBUTEROL 2.5 MG/3 ML NEB SOL NEB PRN (14:00)
[2021-12-25 14:01] VITALS: BP 111/70; TEMP 98.7
--- NOTE | 2021-12-25 16:17 | EKG ---
Test Date: 2021-12-24 Test Time: 13:53:13 Sports Director: MB MEASUREMENT RESULTS: Intervals: Rate: 91 [place]: QRSD: 70 QT: 336 QTc: 413 [place]: P: TX: QRS: 74 T: -12 INTERPRETIVE STATEMENTS: Demand pacemaker, interpretation is based on intrinsic rhythm Atrial fibrillation with premature ventricular or aberrantly conducted complexes ST & T wave abnormality, consider inferior ischemia or digitalis effect Abnormal ECG Compared to ECG 07/20/2019 21:39:13 Ventricular premature complex(es) now present Possible ischemia now present Sinus rhythm no longer present Sinus arrhythmia no longer present ST (T wave) deviation still present Electronically Signed On 12-25-21 16:15:23 CDT by Will Fernandez
--- NOTE | 2021-12-26 01:03 | PN ---
Date of Progress Note: 12/25/2021 Subjective: Seen by bedside. No further chest pain. No nausea, vomiting, or diarrhea. No dysuria, polyuria, or urinary urgency. All other systems reviewed and are negative. Physical Examination: Vital Signs: Reviewed. Head And Neck: Pupils are equal and reactive to light. Intact eye movements. No JVD. No cervical lymphadenopathy. Neck: Supple. Thyroid is not enlarged. Lungs: Clear to auscultation bilaterally. No rhonchi, wheezing, or crackles. No accessory muscle u se. Heart: Regular rate and rhythm. No extra sounds. Abdomen: Soft, nontender. Bowel sounds positive. No organomegaly. No masses or hernia. No rigidi ty or rebound. Extremities: No clubbing or cyanosis. Intact pulses. Skin: No rashes. Neurologic: Alert, awake, oriented x3. No acute focal deficits appreciated. Lymph Nodes: No cervical or axillary lymphadenopathy. Investigations: Cardiac troponins x3 are negative. BUN is 9, creatinine 0.85. NT-proBNP is 1922. Assessment And Recommendations: 1.Chest pain. Cardiac enzymes are negative. Pain is resolved. The patient can be released and he has already scheduled a stress test and echo as outpatient. We will plan to do them early next week and follow up with me post testing. To send home on aspirin and beta-brandi. 2.Hypertension, is controlled. 3.Dyslipidemia. Continue statin. SR/MODL Voice ID: [id number] Report ID: [id number]
[2021-12-26] MEDS ORDERED: SOD FERRIC GLUC COMPLX/SUCROSE 125 MG in NA CHLORIDE 0.9% 100 ML IV SCH (09:00)
== END 2021-12-25 13:43 | disposition left against medical advice (07) ==
LOC: ER 13:34 → ERHOLD 17:09
PROVIDERS: ADMIT Hospitalist; ATTEND Hospitalist
DX: R07.9 Chest pain, unspecified (principal); J44.9 Chronic obstructive pulmonary disease, unspecified; J96.10 Chronic respiratory failure, unspecified whether with hypoxia or hypercapnia; E83.42 Hypomagnesemia; I10 Essential (primary) hypertension; D50.9 Iron deficiency anemia, unspecified; I12.9 Hypertensive chronic kidney disease with stage 1 through stage 4 chronic kidney disease, or unspecified chronic kidney disease; N18.2 Chronic kidney disease, stage 2 (mild); K21.9 Gastro-esophageal reflux disease without esophagitis; I25.2 Old myocardial infarction; E78.5 Hyperlipidemia, unspecified; Z99.81 Dependence on supplemental oxygen; Z20.822 Contact with and (suspected) exposure to COVID-19; F03.90 Unspecified dementia, unspecified severity, without behavioral disturbance, psychotic disturbance, mood disturbance, and anxiety; N40.0 Benign prostatic hyperplasia without lower urinary tract symptoms; Z88.6 Allergy status to analgesic agent; I25.10 Atherosclerotic heart disease of native coronary artery without angina pectoris; Z86.73 Personal history of transient ischemic attack (TIA), and cerebral infarction without residual deficits; Z87.891 Personal history of nicotine dependence
CPT/HCPCS: 93005; 85025 ×2; 80048 ×2; 36415; 83735 ×3; 84100; 84132; 85610 ×2; 80076; 84443; 81003; 83036; 84484 ×3; 84439; 82728; 83540; 83880 ×2; 84466; 71045; 96375; 96374; 99285; 87811; J1940; J3010; J3475; J2916; J2405; G0378 ×3

== ENCOUNTER 2022-03-13 15:03 | Inpatient (IN) | payer OTHER ==
--- OUTSIDE RECORDS SUMMARY | 2022-03-13 15:32 | XMS REPORT | Continuity of Care Document ---
:1950 Demographics Address [address] [place] [address] Mobile Phone Email Address NONE Preferred Language Citizen Of [place] Marital Status Unknown Sabianism Affiliation Unknown Race Unknown Additional Race(s) Unavailable White Ethnic Group Unknown Author Organization [facility] t Address [address] [place] [address] Dr. Martinez. [address] [place] [address] Support Name Relationship Address Phone ACACIA PENA CH [address] [place] [address] ACACIA [place] [address] CATHY MOREJON Sister Unavailable Unavailable MD CLINT FERRER Primary Care Physician [address] [facility] [address] [place] [address] MD DEEPAK [facility] Emergency Provider [address] [place] [address] ACACIA PENA [address] [phone] [place] [address] Acacia Pena [address] [place] [address] [address] [phone] [place] [address] ACACIA PENA [address] [place] [place] [address] Maurice Pena, Child [address] [phone] [place] [address] Care Team Providers Name Role Phone Clint Ferrer Primary Care Physician SEBASTIAN SHIPLEY Attending Clinician Unavailable BETH OBRIEN Attending Clinician Unavailable Leeanne Hawley MD Attending Clinician Beth Obrien MD Attending Clinician ТАТЬЯНА WILSON Attending Clinician Unavailable Татьяна Wilson Attending Clinician Doctor Unassigned, [place] Attending Clinician Unavailable Lab, Ang - Db Attending Clinician Unavailable Froy Valverde MD Attending Clinician FROY VALVERDE Attending Clinician Unavailable FROY VALVERDE Attending Clinician Unavailable Melisa EDOUARD, Mabel Celeste Attending Clinician Unavailable ESTEBAN GRIMALDO Attending Clinician Unavailable Tunde Gamez DO Attending Clinician Esteban Grimaldo MD Attending Clinician MANISHA SIDHU Attending Clinician Unavailable Jessica Coley RN Attending Clinician Unavailable Richi Castellon DO Attending Clinician Jose SPENCER, Mariajose Abel Attending Clinician FAUSTINO MARCOS Attending Clinician Unavailable Faustino Marcos MD Attending Clinician LEEANNE HAWLEY Attending Clinician Unavailable Rajendra Buenrostro Attending Clinician KEREN GARCIA Attending Clinician Unavailable Keren Garcia DO Attending Clinician Jorgito Ortiz Attending Clinician Sigifredo Shipley Attending Clinician Sebastian Shipley MD Attending Clinician Pablo [place] CRNA Attending [...] Unavailable MECCA STERLING Attending Clinician Unavailable SEBASTIAN SHIPLEY Admitting Clinician Unavailable BETH OBRIEN Admitting Clinician Unavailable Beth Obrien MD Admitting Clinician ТАТЬЯНА WILSON Admitting Clinician Unavailable Татьяна Wilson Admitting Clinician TUNDE GAMEZ Admitting Clinician Unavailable Tunde Gamez DO Admitting Clinician Mariajose Garcia MD Admitting Clinician [phone] FAUSTINO MARCOS Admitting Clinician Unavailable LEEANNE HAWLEY Admitting Clinician Unavailable KEREN GARCIA Admitting Clinician Unavailable Jorgito Ortiz Admitting Clinician Sigifredo Shipley Admitting Clinician Sebastian Shipley MD Admitting Clinician RED MANCUSO Admitting Clinician Unavailable JESUS SALINAS Admitting Clinician Unavailable ADITYA PHOENIX Admitting Clinician Unavailable Divina Nowak Admitting Clinician LOU AVERY Admitting Clinician Unavailable MECCA STERLING Admitting Clinician Unavailable Payers Payer Name Policy Type Policy Number Effective Date Expiration Date [facility] [id number] 2019 DUAL COMPLETE HMO 00:00:00 [facility] [id number] 2011 00:00:00 2 M [id number] 2 C [id number] Problems Condition Condition Condition Status Onset Resolution Last Treating Co mments Source Name Details Category Date Date Treatment Clinician Date Blurring, Blurring, Disease Active Uni vers right eye right eye 06 ity of 00:00: [place] [address] Medical Branch STEMI STEMI Diagnosis Active 2021-032022-03-03 Mem oria Active 04-29 16:29:00 l 02/26/2022 00:00: Eric pena [address] 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 0-05 ity of disease disease 00:00: [place] involving involving 00 Medi waqar [place] Branch coronary coronary artery of artery of [place] heart heart without without angina angina pectoris pectoris Bilateral Bilateral Disease Active 2021-03 Uni vers carotid carotid 0-05 ity of artery artery 00:00: [place] stenosis stenosis 00 Medica l Branch Pulmonary Pulmonary Disease Active 2021-03 Uni vers hypertensi hypertensi 0-05 it y of on on 00:00: [place] [address] Medical Branch Elevated Elevated Disease Active 2021-03 Unive rs brain brain 0-05 ity of natriureti natriureti [place] c peptide c peptide 00 Medi waqar (BNP) (BNP) Branch level level E44.0 E44.0 Disease Active 2021-03 Univers Moderate Moderate 0-05 ity of protein protein 00:00: [place] calorie calorie 00 Medical malnutriti malnutriti Br anch on on COPD COPD Disease Active 2021-03 Univers exacerbati exacerbati 0-04 it y of on on 00:00: [place] [address] Medical Branch Slurring Slurring Disease Active Unive rs of speech of speech 9- ity of 00:00: [address] Branch Chest pain Chest pain Disease Active U nivers - ity of 00:00: [place] [facility] Left-sided Left-sided Disease Active U nivers weakness weakness 11-24 ity of 00:00: [address] Stroke-lik Stroke-lik Disease Active U nivers e symptom e symptom 11-24 ity of 00:00: [address] CHEST PAIN CHEST Diagnosis Active 2021-06-09 Memoria PAIN 3-25 21:47:00 l Active 00:00: [facility] [facility]30/2021 [facility] OTHER OTHER Diagnosis Active 2021-04-11 Mem oria CHEST PAIN CHEST PAIN 1-30 21:44:00 l Active 00:00: Tanvir 04/06/2021 00 [facility] Leg pain Leg pain Disease [facility] 00[facility]: [address] PVD PVD Disease Active [facility] (periphera (periphera [address] [place] l vascular l vascular 00:00: Me dical disease) disease) 00 Center ALCIDES ALCIDES Diagnosis Active 2017-032017-12-28 Memoria BILLING BILLING 0- 15:05:00 l Active 00:00: Tanvir 12/28/[address] [place] [address] CVA CVA Diagnosis Active 2017-032017-12-28 Mem oria Active 20:41:00 l 12/28/2017 00:00: Eric pena [address] Ischemic Ischemic Disease Active [facility] stroke stroke 11-30 00:00: Medical 00 Center S/P admn S/P admn Disease Active [facility] tPA in tPA in 11-30 diff fac diff fac 00:00: Medica l w/n last w/n last 00 Center 24 hr bef 24 hr bef adm to adm to crnt fac crnt fac Essential Essential Disease Active [facility] hypertensi hypertensi 05 [place] on on 00:00: Medical 00 Center Received Received Disease Active [facility] tissue tissue 03-12 Lu plasminoge plasminoge 00:00: Me dical n n 00 Center activator activator (t-PA) (t-PA) less than less than 24 hours 24 hours prior to prior to arrival arrival Acute Acute Disease Active [facility] ischemic ischemic 03-11 [facility] stroke stroke 00:00: Medical 00 [place] HLD HLD Disease Active 2015-[address] (hyperlipi (hyperlipi 03-18 [place] demia) demia) 00:00: Medical 00 Center Peripheral Peripheral Disease Active 2015-[address] vascular vascular 03-15 [facility] disease disease 00:00: Medical 00 [place] Postoperat Postoperat Disease Active 2015-[address] cody anemia cody anemia 03-15 Manuela kes 00:00: Medical 00 [place] Coronary Coronary Disease Active 2015-03 [facility] artery artery 03-11 [facility] disease disease 00:00: Medical involving involving 00 Cent er [place] coronary coronary artery artery PAD PAD Disease Active 2015-[address] (periphera (periphera 03-11 [place] l artery l artery 00:00: Medica l disease) disease) 00 Center HTN HTN Disease Active 2015-[address] (hypertens (hypertens -04 [place] ion) ion) 00:00: Medical 00 Center Iliac Iliac Disease Active 2015-[address] artery artery 03-11 [facility] stenosis, stenosis, 00:00: Medi waqar bilateral bilateral 00 Cent er Unstable Unstable Disease Active 2015-03 [facility] angina angina 03-11 [facility] 00:00: Medical 00 Center COPD COPD Disease Active 2015-[address] [facility] (chronic (chronic 03-11 [facility] obstructiv obstructiv 00:00: Me dical e e 00 Center pulmonary pulmonary disease) disease) Tobacco Tobacco Disease Active 2015-[address] [facility] abuse abuse 1-04 [facility] 00:00: Medical 00 Center ACS (acute ACS (acute Disease Active 2015- [facility] coronary coronary 1-04 [facility] syndrome) syndrome) 00:00: [place] [address] Center No known No known Disease Unive rs active active ity of problems problems [facility] Peripheral Periphera Problem 2018-07-19 Memoria vascular l vascular 12:57:08 l disease, disease, Eric n unspecifie unspecifie d d 07/19/2018 [facility] 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 2018-07-19 Memor 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 He rmann 07/19/2018 [facility] Presence Presence Problem 2018-07-19 Memoria of of 12:57:08 l coronary coronary Eric n angioplast angioplast y implant y implant and graft and graft 07/19/2018 [facility] Personal Personal Problem 2018-07-19 Memoria history of history of 12:57:08 l other other Tanvir malignant malignant neoplasm neoplasm of skin of skin 07/19/2018 [facility] Amnesia Amnesia Problem Active 2022-03-02 Me moria (finding) (finding) 23:55:35 l Active [place] Problem 03/02/2022 [facility] Cardiac Cardiac Problem Active 2022-03-02 Me anat pacemaker pacemaker 23:55:35 l in situ in situ Tanvir (finding) (finding) Active Problem 03/02/2022 [facility] Cerebrovas Cerebrova Problem Active 2022-03-02 Memoria cular scular 23:55:35 l accident accident Eric n (disorder) (disorder) Active Problem 03/02/2022 [facility] Coronary Coronary Problem Active 2022-03-02 Memoria arterioscl arterioscl 23:55:35 l erosis erosis Tanvir (disorder) (disorder) Active Problem 03/02/2022 [facility] Dementia Dementia Problem Active 2022-03-02 Memoria (disorder) (disorder) 23:55:35 l Active [place] Problem 03/02/2022 [facility] Dyslipidem Dyslipide Problem Active 2022-03-02 Memoria ia cristofer 23:55:35 l (disorder) (disorder) He rmann Active Problem 03/02/2022 [facility] Gastroesop Gastroeso Problem Active 2022-03-02 Memoria hageal phageal 23:55:35 l reflux reflux Tan[place] disease disease (disorder) (disorder) Active Problem 03/02/2022 [facility] Peripheral Periphera Problem Active 2022-03-02 Memoria arterial l arterial 23:55:35 l disease disease [place] Active Problem 03/02/2022 [facility] Tremor Tremor Problem Active 2022-03-02 [place] to (finding) (finding) 23:55:35 l Active [place] Problem 03/02/2022 [facility] Nicotine Nicotine Problem 2018-07-19 Memoria dependence dependence 12:57:08 l , , [place] cigarettes cigarettes , , uncomplica uncomplica jw jw 07/19/2018 [facility] Presence Presence Problem 2018-07-19 Memoria of cardiac of cardiac 12:57:08 l pacemaker pacemaker Herm radha 07/19/2018 [facility] Other long Other Problem 2018-07-19 M emoria 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 12:57:08 l (current) (current) Herm radha drug drug therapy therapy 07/19/2018 [facility] 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 Problem 2018-07-19 Me moria (current) term 12:57:08 l use of (current) [place] aspirin use of aspirin 07/19/2018 [facility] long-term long-term Problem 2018-07-19 Memoria (current) (current) 12:57:08 l use of use of Tanvir antithromb antithromb otics/anti otics/anti platelets platelets 07/19/2018 [facility] CHEST CHEST Diagnosis Active 2018-02-21 Mem oria PAIN, PAIN, 15:18:00 l UNSPECIFIE UNSPECIFIE He [place] D D Active [facility] Other Other Problem 2018-07-19 Memor ia chest pain chest pain 12:57:08 l 07/19/2018 Eric pena [facility] Unspecifie Unspecifi Problem 2018-07-19 Memoria d atrial ed atrial 12:57:08 l fibrillati fibrillati He rmann on on 07/19/2018 [facility] Essential Essential Problem 2018-07-19 Memoria (primary) (primary) 12:57:08 l hypertensi hypertensi He rmann on on 07/19/2018 [facility] 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 12:57:08 l heart heart Tanvir disease of disease of [place] coronary coronary artery artery without without angina angina pectoris pectoris 07/19/2018 [facility] 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, disorder, Herm radha single single episode, episode, unspecifie unspecifie d d 07/19/2018 [facility] Personal Personal Problem 2018-07-19 Memoria history of history of 12:57:08 l transient transient Herm radha ischemic ischemic attack attack (TIA), and (TIA), and cerebral cerebral infarction infarction without without residual residual deficits deficits 07/19/2018 [facility] History of Past Illness Condition Condition Condition Status Onset Resolution Last Treating Co mments Source Name Details Category Date Date Treatment Clinician Date Syncope Syncope Problem 2017-2018-07-19 2018-07-19 Memoria and and 0-31 12:57:08 12:57:08 l collapse collapse 03:09: Eric n 01/05/2018 00 07/19/2018 [facility] Allergies, Adverse Reactions, Alerts Allergy Allergy Status Severity Reaction(s) Onset Inactive Treating Comm ents Source Name Type Date Date Clinician No Known NA Active 2020-0 [facility] 21:54: l 26 ([facility]) No Known NA Active 2020-0 [facility] Allergie 05-14 [facility]ospita [facility] 13:20: l 51 ([facility]) No Known NA Active 2020-0 [facility] Allergie 05-14 Hospita s 13:20: l 46 ([facility] nt) No known Miscella Active U Not 2020-0 [facility] drug neous Specified 05-14 Hospita Allergie Allergy 10:56: l s 12 ([facility]) Denies Miscella Active U Not 2020-0 [facility] latex neous Specified 05-14 Hospita allergy Allergy 10:56: l 12 ([facility]vt [facility]) No known Miscella Active U Not 2020-0 [facility] drug neous Specified 3-09 Hospita Allergie Allergy 10:56: l s 12 ([facility]) Denies Miscella Active U Not 2020-0 [facility] latex neous Specified 3-09 Hospita allergy Allergy 10:56: l 12 ([facility]) Denies Miscella Active U Not 2020-0 [facility] latex neous Specified 3-09 Hospita allergy Allergy 10:56: l 12 ([facility]) No known Miscella Active U Not 2020-0 Baptis t drug neous Specified 3-07 Hospita Allergie Allergy 21:36: l s 06 ([facility]) Denies Miscella Active U Not 2020-0 [facility]arian latex neous Specified 3-07 Hospita allergy Allergy 21:36: l 06 ([facility]) No known Miscella Active U Not 2020-0 Baptis t drug neous Specified 3-07 Hospita Allergie Allergy 21:36: l s 06 ([facility]) Denies Miscella Active U Not 2020-0 [facility] latex neous Specified 3-07 Hospita allergy Allergy 21:36: l 06 ([facility]) No known Miscella Active U Not 2020-0 Baptis t drug neous Specified 3-07 Hospita Allergie Allergy 21:36: l s 06 ([facility]) Denies Miscella Active U Not 2020-0 [facility]arian latex neous Specified 3-07 Hospita allergy Allergy 21:36: l 06 ([facility]) No known Miscella Active U Not 2020-0 Baptis t drug neous Specified 3-07 Hospita Allergie Allergy 21:36: l s 06 ([facility]) Denies Miscella Active U Not 2020-0 [facility]arian latex neous Specified 3-07 Hospita allergy Allergy 21:36: l 06 ([facility]) No known Miscella Active U Not 2020-0 Baptis t drug neous Specified 3-07 Hospita Allergie Allergy 21:36: l s 06 ([facility]) Denies Miscella Active U Not 2020-0 Rastafarian latex neous Specified 3-07 Hospita allergy Allergy 21:36: l 06 ([facility]) No known Miscella Active U Not 2020-0 Baptis t drug neous Specified 3-07 Hospita Allergie Allergy 21:36: l s 06 ([facility]) Denies Miscella Active U Not 2020-0 Rast[facility]arian latex neous Specified 3-07 Hospita allergy Allergy 21:36: l 06 ([facility]) No known Miscella Active U Not 2020-0 Baptis t drug neous Specified 3-07 Hospita Allergie Allergy 21:36: l s 06 ([facility]) Denies Miscella Active U Not 2020-0 Rastafarian latex neous Specified 3-07 Hospita allergy Allergy 21:36: l 06 ([facility]) No known Miscella Active U Not 2020-0 Baptis t drug neous Specified 3-07 Hospita Allergie Allergy 21:36: l s 06 ([facility]) Denies Miscella Active U Not 2020-0 Rastafarian latex neous Specified 3-07 Hospita allergy Allergy 21:36: l 06 ([facility]) No known Miscella Active U Not 2020-0 Baptis t drug neous Specified 3-07 Hospita Allergie Allergy 21:36: l s 06 ([facility]) Denies Miscella Active U Not 2020-0 Rastafarian latex neous Specified 3-07 Hospita allergy Allergy 21:36: l 06 ([facility]) No known Miscella Active U Not 2020-0 Baptis t drug neous Specified 3-07 Hospita Allergie Allergy 21:36: l s 06 ([facility]) Denies Miscella Active U Not 2020-0 Rastafarian latex neous Specified 3-07 Hospita allergy Allergy 21:36: l 06 ([facility]) No known Miscella Active U Not 2020-0 Baptis t drug neous Specified 3-07 Hospita Allergie Allergy 21:36: l s 06 ([facility]) Denies Miscella Active U Not 2020-0 Rastafarian latex neous Specified 3-07 Hospita allergy Allergy 21:36: l 06 ([facility]) No known Miscella Active U Not 2020-0 Baptis t drug neous Specified 3-07 Hospita Allergie Allergy 21:36: l s 06 ([facility]) Denies Miscella Active U Not 2020-0 Rastafarian latex neous Specified 3-07 Hospita allergy Allergy 21:36: l 06 ([facility]) No known Miscella Active U Not 2020-0 Baptis t drug neous Specified 05-12 Hospita Allergie Allergy 21:36: l s 06 ([facility]) Denies Miscella Active U Not 2020-0 Rastafarian latex neous Specified 05-12 Hospita allergy Allergy 21:36: l 06 ([facility]) No known Miscella Active U Not 2020-0 Baptis t drug neous Specified 05-12 Hospita Allergie Allergy 17:44: l s 59 ([facility]) Denies Miscella Active U Not 2020-0 Rastafarian latex neous Specified 05-12 Hospita allergy Allergy 17:44: l 59 ([facility]) No known Miscella Active U Not 2020-0 Baptis t drug neous Specified 05-12 Hospita Allergie Allergy 17:44: l s 59 ([facility]) Denies Miscella Active U Not 2020-0 Rastafarian latex neous Specified 05-12 Hospita allergy Allergy 17:44: l 59 ([facility]) No known Miscella Active U Not 2020-0 Baptis t drug neous Specified 05-12 Hospita Allergie Allergy 17:44: l s 59 ([facility]) Denies Miscella Active U Not 2020-0 Rastafarian latex neous Specified 05-12 Hospita allergy Allergy 17:44: l 59 ([facility]) No Known NA Active 2020-0 [facility] Allergie 05-12 Hospita s 17:44: l 54 ([facility]) No Known NA Active 2020-0 [facility] Allergie - Hospita s 16:40: l 57 ([facility]) NO KNOWN Allergy Active [facility] NO KNOWN Drug Active Univers ALLERGIE Class ity of [facility] Branch Family History Family Member Diagnosis Comments Start Date Stop Date Source Natural father Tuberculosis [facility] Natural mother Cancer [facility] Natural mother Heart disease [facility] Social History Social Habit Start Date Stop Date Quantity Comments Source History of tobacco Cigarette Smoker [facility] Branch History SDOH Social Unive rsity of [facility] Branch History SDOH Social Unive rsity of Connections Gnosticist [place] [facility] History SDOH Social Unive rsity of Connections [place] [facility] Membership Branch History SDOH Social Unive rsity of Connections [place] [facility] Meetings Branch History SDOH 2022-03-11 2022-03-11 1 University o f Alcohol Frequency 00:00:00 00:00:00 [place] [facility] ed[facility] History SDOH 2022-03-11 2022-03-11 0 University o f Alcohol Std Drinks 00:00:00 00:00:00 [place] [facility] History SDOH 2022-03-11 2022-03-11 1 University o f Alcohol Binge 00:00:00 00:00:00 [place] [facility] History SDOH Social 2022-03-11 2022-03-11 2 Unive rsity of Connections Phone 00:00:00 00:00:00 [facility] edical Branch History SDOH Social 2022-03-11 2022-03-11 5 Unive rsity of Connections Living 00:00:00 00:00:00 [place] [facility] History SDOH 2022-03-11 2022-03-11 0 University o f Physical Activity 00:00:00 00:00:00 [facility] edical DPW Branch History SDOH 2022-03-11 2022-03-11 0 University o f Physical Activity 00:00:00 00:00:00 [facility] edical MPS Branch History SDOH 2022-03-11 2022-03-11 5 University o f Financial 00:00:00 00:00:00 [place] [facility] History SDOH Food 2022-03-11 2022-03-11 1 Univers ity of Worry 00:00:00 00:00:00 [place] [facility] History SDOH Food 2022-03-11 2022-03-11 1 Univers ity of Scarcity 00:00:00 00:00:00 [place] [facility] History SDOH 2022-03-11 2022-03-11 2 University o f Transport Med 00:00:00 00:00:00 [place] [facility] History SDOH 2022-03-11 2022-03-11 2 University o f Transport Non-Med 00:00:00 00:00:00 [place] M edical Branch Exposure to 2022-02-28 2022-03-10 Not sure University of SARS-CoV-2 (event) 00:00:00 16:14:00 [facility] Education 2021-12-09 2021-12-09 10 [facility] 00:00:00 00:00:00 [facility] Social History 2021-05-30 2021-05-30 Lilian zaragoza 21:10:32 21:10:32 Alcohol intake 2018-04-11 2018-04-[address] [facility] 00:[facility]:00 00:00:00 non-drinker of Medical Ce nter alcohol (finding) Tobacco Comment 2018-04-06 2018-04-06 2 cigarettes [facility] Cigarettes smoked 2017-03-12 2017-03-[address] [facility] current (pack per 00:00:00 00:00:00 [facility] day) - Reported Cigarette 2017-03-12 2017-03-[address] [facility] pack-years 00:00:00 00:00:00 [facility] Tobacco use and 2017-03-12 2017-03-[address] [facility] exposure 00:00:00 00:00:00 [facility] Sex [birth year] At [birth year] [facility] 00:00:00 00:00:00 Hospital Smoking Status Start Date Stop Date Source Tobacco smoking consumption [facility] unknown Tobacco smoking status 2022-02-27 00:39:04 Memlisa Ramey Smokes tobacco daily 2021-11-24 00:00:00 Univers ity of [facility] Medications Ordered Filled Start Stop Current Ordering Indication Dosage Frequency Signature Comments Components Source Medication Medication Date Date Medication? Clinician (SIG) Name Name losartan Yes 25mg 25 mg, Univers (COZAAR) 1-06 Oral, ity of tablet 25 15:00: DAILY, [place] mg 00 First dose Medical on Wed Springer 03/13/22 at 0900, Until Discontinu ed, Routine ipratropium Yes .5mg Inhale 0.5 Univers (ATROVENT) 1-06 mg. ity of 0.02 % 14:53: [place] nebulizer 52 Medical solution [facility] budesonide- Yes 2{puff} Inhale 2 Univers formoterol 1-06 Puffs 2 ity of (SYMBICORT) 14:53: (two) [place] 160-4.5 52 times Medical mcg/actuati daily. Branch on inhaler topiramate 0 Yes 25mg Take 25 mg U nivers 25 mg 06 by mouth ity of tablet 14:53: in the [place] [address] morning Medical and 25 mg Branch in the evening. losartan 25 0 Yes 25mg Take 25 mg Univers mg tablet 06 by mouth ity of 14:53: in the [place] [address] morning. Medical Branch donepeziL 5 0 Yes 5mg Take 5 mg U nivers mg tablet 06 by mouth ity of 14:53: at [place] [address] bedtime. Medical Branch medical 0 Yes Univers supply, 03-13 ity of miscellaneo 14:53: [facility] (OXYGEN 52 Medical TUBING Branch [facility]) METOPROLOL 2022-2022- No 25mg Take 25 mg Univers TARTRATE 03-13 by mouth 2 ity of ORAL 07:26: 00:00 (two) [place] 31 :00 times Medical daily. Branch hydroCHLORO 2022-2022- No 25mg Take 25 mg Univers thiazide 25 03-13 by mouth ity of mg tablet 07:26: 00:00 in the [place] 31 :00 morning. Medical Branch tamsulosin 2022-0 2022- No Take by Uni vers 0.4 mg 24 03-13 mouth ity of hr capsule 07:26: 00:00 daily. [facility] 28 :00 Medical Branch aspirin 81 2022-0 2022- No 81mg Take 81 mg Univers mg chewable 03-13 by mouth ity of tablet 07:26: 00:00 in the [place] 28 :00 morning. Medical Branch clopidogreL 2022-0 Yes [id number] 150mg Take 2 Univers 75 mg 03-13 tablets by ity of tablet 00:00: mouth in [place] 00 the Medical morning. Branch aspirin 325 2022-0 2022- Yes [id number] 325mg Take 1 Univers mg tablet 03-13 tablet by ity of 00:00: 04:59 mouth in [place] 00 :00 the Medical morning Branch for 90 days. atorvastati 2022-0 2022- Yes [id number] 40mg Take 1 Univers n 40 mg 03-13 tablet by ity of tablet 00:00: 04:59 mouth at [place] 00 :00 bedtime Medical for 90 Branch days. hydroCHLORO 2022- Yes [id number] 12.5mg Take 0.5 Univers thiazide 25 03-13 tablets by i ty of mg tablet 00:00: 04:59 mouth in [place] 00 :00 the Medical morning Branch for 90 days. metoprolol 2022- Yes [id number] 12.5mg Take 0.5 Univers tartrate 25 03-13 tablets by i ty of mg tablet 00:00: 04:59 mouth in [place] 00 :00 the Medical morning Branch and 0.5 tablets in the evening. Do all this for 90 days. tamsulosin 2022- Yes [id number] .4mg Take 1 Univers 0.4 mg 24 03-13 capsule by ity of hr capsule 00:00: 05:59 mouth in [place] 00 :00 the Medical morning Branch for 30 days. aspirin Yes 325mg 325 mg, Univer s tablet 325 03-12 Oral, ity of mg 15:00: DAILY, [place] 00 First dose Medical on [place] Branch 03/12/22 at 0900, Until Discontinu ed, Routine atorvastati Yes 40mg 40 mg, Univ ers n (LIPITOR) 05 Oral, QHS, it y of tablet 40 03:00: First dose [place] mg 00 (after Medical last Branch modificati on) on 03/11/22 at 2100, Until Discontinu ed, Routine NaCl 0.9% 2022- No 500mL at 999 Univ ers (NS) bolus 03-12-05 mL/hr, 500 it y of infusion 02:30: 02:12 mL, IV [place] 500 mL 00 :33 Piggyback, Medical ONCE, 1 Branch dose, On 03/11/22 at 2030, LORAINE magnesium 2022- No 2g 2 g, IV Univ ers sulfate in 03-12 Infusion, ity of water 2 01:42: 06:15 ONCE, 1 [place] gram/50 mL 00 :00 dose, On Medic al (4 %) 2 g 03/11/22 Bran ch piggyback at 1945 Saline Yes [id number] 6mL 6 mL, Unive rs Bubble 03-11 Injection, ity of Study 17:11: SEE-INSTRU [place] 07 [facility], Medical Starting Branch on Wed03/11/22 at 1111, Until Discontinu ed, Routine Saline 2022-0 Yes [id number] 6mL 6 mL, Unive rs Bubble - Injection, ity of Study 17:11: SEE-INSTRU [place] 04 [facility], Medical Starting Branch on Wed03/11/22 at 1111, Until Discontinu ed, Routine sodium 2023-0 Yes 4mL 4 mL, Univers chloride 7% 03-11 Inhalation it y of (HYPER-SHANE) 15:00: , DAILY, [place] nebulizer 00 First dose Medi waqar solution 4 on Wed Branch mL 03/11/22 at 0900, Until Discontinu ed, Routine tamsulosin 2022-0 Yes .4mg 0.4 mg, Univ ers (FLOMAX) 03-11 Oral, ity of capsule 0.4 15:00: DAILY, [place] mg 00 First dose Medical on Wed Branch 03/11/22 at 0900, Until Discontinu ed, Routine clopidogreL 2022-0 Yes 75mg 75 mg, Univ ers (PLAVIX) 75 03-11 Oral, ity of mg tablet 15:00: DAILY, [place] 75 mg 00 First dose Medical on Wed Branch 03/11/22 at 0900, Until Discontinu ed, Routine heparin 2022-0 Yes 5000U 5,000 Univers (porcine) 03-11 Units, ity of injection 14:00: Subcutaneo [place] 5,000 Units 00 us, Q12H, Med ical First dose Branch on Wed03/11/22 at 0800, Until Discontinu ed, Routine topiramate 2022-0 Yes 25mg 25 mg, Unive rs (TOPAMAX) 03-11 Oral, BID, ity of tablet 25 14:00: First dose [place] mg 00 on Wed Medical 03/11/22 at Branch 0800, Until Discontinu ed, Routine
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 approving Restricted medication : HOME 12 cyclobenzap 3-0 Yes 5mg 5 mg, Unive rs rine 1-04 Oral, TID, ity of (FLEXERIL) 14:00: First dose [place] tablet 5 mg 00 on Wed Medica l 03/11/22 at Branch 0800, Until Discontinu ed, Routine NaCl 0.9% 3-0 Yes 1000mL at 75 Unive rs (NS) IV 1-04 mL/hr, IV ity of infusion 07:00: Infusion, [place] 1,000 mL 00 CONTINUOUS Medic al , Starting Branch on Wed03/11/22 at 0100, Until Discontinu ed, Routine ipratropium 3-0 Yes 3mL 3 mL, Unive rs -albuteroL 1-04 Inhalation ity of (DUONEB) 06:00: , Q4H, [place] 0.5 mg-3 00 First dose Medic al mg(2.5 mg on Wed Branch base)/3 mL 03/11/22 at nebulizer 0000, solution 3 Until mL Discontinu ed, Routine budesonide- 3-0 Yes 2{puff} 2 Puff, Univers formoteroL 1-04 Inhalation ity of (SYMBICORT) 06:00: , BID, [place] 160-4.5 00 First dose Medica l mcg/actuati on Wed on inhaler 03/11/22 at 2 Puff 0000, Until Discontinu ed, [place] ondansetron 2022-0 Yes 4mg 4 mg, Unive rs (ZOFRAN-ODT -04 Oral, ity of ) 05:37: Q4HPRN, [place] disintegrat 03 Starting Medi waqar ing tablet on Wed 4 mg 03/10/22 at 2337, Until Discontinu ed, Routine, Nausea and Vomiting (N/V) aspirin 3-0 2023- No 325mg 325 mg, Unive rs tablet 325 03-11- Oral, ity of mg 02:00: 03:09 ONCE, 1 [place] 00 :00 dose, On Medical Wed03/10/22 Branch at 2000, STAT LORazepam 2023-0 2023- No .5mg 0.5 mg, Univ ers (ATIVAN) 03-11- Slow IV ity of injection 01:15: 00:33 Push, [place] 0.5 mg 00 :00 ONCE, 1 Medical dose, On Branch Wed03/10/22 at 1915, STAT LORazepam 2023-0 2023- No .5mg 0.5 mg, Univ ers (ATIVAN) 03-10- Slow IV ity of injection 23:00: 22:59 Push, [place] 0.5 mg 00 :00 ONCE, 1 Medical dose, On Branch Wed03/10/22 at 1700, STAT iopamidol 2022- No [id number] 140mL 140 mL, Univers (ISOVUE 03-10 01-03 Intravenou ity o f 370-500 mL) 22:40: 22:41 s, ONCE, 1 [place] injection 00 :00 dose, On Medica l 140 mL Wed03/10/22 Branch at 1700, Routine NaCl 0.9% Yes 5mL 5 mL, Slow Un sarahy (NS) 03-10 IV Push, ity of injection 5 22:14: PRN - SEE [place] mL 48 INSTRUCTIO Medical NS, Branch Starting on Wed03/10/22 at 1614, Until Discontinu ed, 10 mL aspirin 81 2021-03 Yes 81 mg = 1 Me [place] mg tablet, 2-24 tab, PO, l enteric 16:40: Daily, # Eric n coated 00 30 tab, 3 Refill(s), Pharmacy: [facility] #[id number], 170.18, cm, 02/26/22 18:06:00 [employer], Height, 62.5, kg, 02/26/22 18:06:00 [employer], Weight aspirin 81 2021-03 Yes 81 mg = 1 Me [place] mg tablet, 2-24 tab, PO, l enteric 16:40: Daily, # Eric n coated 00 30 tab, 3 Refill(s), Pharmacy: [facility] #[id number], 170.18, cm, 02/26/22 18:06:00 [employer], Height, 62.5, kg, 02/26/22 18:06:00 [employer] 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, Weight aspirin 81 2021-03 Yes 81 mg = 1 Me [place] mg tablet, 2-24 tab, PO, l enteric 16:40: Daily, # Eric n coated 00 30 tab, 3 Refill(s), Pharmacy: [facility] #[id number], 170.18, cm, 02/26/22 18:06:00 [employer]OR, Height, 62.5, kg, 02/26/22 18:06:00 [employer], Weight Plavix 75 2021-03 Yes 75 mg = 1 Mem oria mg oral 2-24 tab, PO, l tablet 16:39: Daily, # Tanvir 00 30 tab, 0 Refill(s), Pharmacy: [facility] #[id number], 170.18, cm, 02/26/22 18:06:00 [employer], Height, 62.5, kg, 02/26/22 18:06:00 [employer] SUPER[employer], Weight metoprolol 2021-03 Yes 25 mg = 1 Me moria tartrate 25 2-24 tab, PO, l mg oral 16:39: BID, # 60 Eugenia nn tablet 00 tab, 0 Refill(s), Pharmacy: [facility] #[id number], 170.18, cm, 02/26/22 18:06:00 [employer]PER[employer]OR, Height, 62.5, kg, 02/26/22 18:06:00 [employer] SUPER[employer]OR, Weight Plavix 75 2021-03 Yes 75 mg = 1 Mem oria mg oral 2-24 tab, PO, l tablet 16:39: Daily, # Tanvir 00 30 tab, 0 Refill(s), Pharmacy: [facility] #[id number], 170.18, cm, 02/26/22 18:06:00 [employer] SUPER[employer]OR, Height, 62.5, kg, 02/26/22 18:06:00 [employer] SUPER[employer]OR, Weight metoprolol 2021-03 Yes 25 mg = 1 Me moria tartrate 25 2-24 tab, PO, l mg oral 16:39: BID, # 60 Eugenia nn tablet 00 tab, 0 Refill(s), Pharmacy: [facility] #[id number], 170.18, cm, 02/26/22 18:06:00 [employer] SUPER[employer]OR, Height, 62.5, kg, 02/26/22 18:06:00 [employer]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, Weight Plavix 75 2021-03 Yes 75 mg = 1 Mem oria mg oral 2-24 tab, PO, l tablet 16:39: Daily, # Tanvir 00 30 tab, 0 Refill(s), Pharmacy: [facility] #[id number], 170.18, cm, 02/26/22 18:06:00 [employer]OR, Height, 62.5, kg, 02/26/22 18:06:00 [employer] SUPER[employer]OR, Weight metoprolol 2021-03 Yes 25 mg = 1 Me moria tartrate 25 2-24 tab, PO, l mg oral 16:39: BID, # 60 Eugenia nn tablet 00 tab, 0 Refill(s), Pharmacy: [facility] #[id number], 170.18, cm, 02/26/22 18:06:00 [employer] SUPER[employer]OR, Height, 62.5, kg, 02/26/22 18:06:00 [employer] SUPER[employer]OR, Weight iron 2021-03 No 100 mg, Memoria dextran 2-24 Route: l 15:00: IVPB, Drug Tanvir form: INJ, Daily, Dosing Weight 62.5, kg, Start date: 02/28/22 9:00:00 [employer], Duration: 10 doses or times, Stop date: 03/09/22 9:00:00 [employer]PER[employer]OR Ferrlecit + 2021-03 No 125 mg, 10 Memoria Sodium 2-24 mL, Route: l Chloride 15:00: IVPB, Drug Her stewart 0.9% IV 100 00 form: INJ, mL Daily, Start date: 02/28/22 9:00:00 [employer], Duration: 8 doses or times, Stop date: 03/07/22 9:00:00 [employer]PER[employer]OR, Infuse over: 1 hr, 0 iron 2021-03 No 100 mg, Memoria dextran 2-24 Route: l 15:00: IVPB, Drug Tanvir form: INJ, Daily, Dosing Weight 62.5, kg, Start date: 02/28/22 9:00:00 [employer], Duration: 10 doses or times, Stop date: 03/09/22 9:00:00 [employer] SUPER[employer]OR Ferrlecit + 2021-03 No 125 mg, 10 Memoria Sodium 2-24 mL, Route: l Chloride 15:00: IVPB, Drug Her stewart 0.9% IV 100 00 form: INJ, mL Daily, Start date: 02/28/22 9:00:00 [employer] SUPER[employer], Duration: 8 doses or times, Stop date: 03/07/22 9:00:00 [employer] SUPER[employer]OR, Infuse over: 1 hr, 0 iron 2021- No 100 mg, Memoria dextran 2-24 Route: l 15:00: IVPB, Drug Tanvir 00 form: INJ, Daily, Dosing Weight 62.5, kg, Start date: 02/28/22 9:00:00 [employer]PER[employer]OR, Duration: 10 doses or times, Stop date: 03/09/22 9:00:00 [employer] SUPERVISOR Ferrlecit + 2021-03 No 125 mg, 10 Memoria Sodium 2-24 mL, Route: l Chloride 15:00: IVPB, Drug Her stewart 0.9% IV 100 00 form: INJ, mL Daily, Start date: 02/28/22 9:00:00 [employer], Duration: 8 doses or times, Stop date: 03/07/22 9:00:00 [employer]PER[employer]OR, Infuse over: 1 hr, 0 potassium 2021-03 No /= 14 Memoria chloride 2-24 [place], l 08:31: july [place] dissolve each 20 mEq tablet in 4 oz of water. Allow about 2 minutes for the tablets to disintegra te. Stir before giving to prepare slurry and administer . Please exclude patient's with feeding tube less than 14 Polish (Dobhoff, J-tube, etc) and pediatric and patients. potassium 2021-03 No Notes: Memori a phosphate-s 2-24 (Same as: l odium 08:31: Phos-NaK) Tanvir phosphate 00 Each 1.5 250 mg-280 gm pkt has mg-160 mg 250mg oral powder phosphorou for s. Mix reconstitut w/2.5oz ion water and stir. potassium 2021-03 No Notes: Memori a phosphate 2-24 (Same as: l 08:31: K [place] Phosphate) Infuse over 4 hour. Do not infuse phosphorou s concurrent ly in the same line as TPN or IVF that contains calcium. For double lumen central lines, phosphorou s may be infused in a separate lumen from TPN. sodium 2021-03 No Notes: Memoria phosphate 2-24 Infuse l 08:31: over 4 [place] 00 hour. Do not infuse phosphorou s concurrent ly in the same line as TPN or IVF that contains calcium. For double lumen central lines, phosphorou s may be infused in a separate lumen from TPN. magnesium 2021-03 No Notes: Memori a sulfate 2-24 WASTE: F/P l 08:31: - Sink; E - [facility] Trash Bin magnesium 2021-03 No Notes: Memori a oxide 2-24 (Same as: l 08:31: Mag-Ox [place] 00 400) Magnesium oxide [id number] g elemental magnesium Dose=____m g magnesium oxide (___mg elemental magnesium) calcium 2021-03 No Notes: Memoria gluconate + 2-24 WASTE: F/P l Sodium 08:31: - Sink; E Eric n Chloride 00 - 0.9% IV 80 [place] mL Trash Bin calcium 2021-03 No Notes: Memoria gluconate + 2-24 WASTE: F/P l Sodium 08:31: - Sink; E Eric n Chloride 00 - 0.9% IV 100 Municipal mL Trash Bin potassium 2021-03 No /= 14 Memoria chloride 2-24 Polish, l 08:31: july [place] dissolve each 20 mEq tablet in 4 oz of water. Allow about 2 minutes for the tablets to disintegra te. Stir before giving to prepare slurry and administer . Please exclude patient's with feeding tube less than 14 Polish (Dobhoff, J-tube, etc) and pediatric and patients. potassium 2021-03 No Notes: Memori a phosphate-s 2-24 (Same as: l odium 08:31: Phos-NaK) [place]vir phosphate 00 Each 1.5 250 mg-280 gm pkt has mg-160 mg 250mg oral powder phosphorou for s. Mix reconstitut w/2.5oz ion water and stir. potassium 2021-03 No Notes: Memori a phosphate 2-24 (Same as: l 08:31: K [place]vir Phosphate) Infuse over 4 hour. Do not infuse phosphorou s concurrent ly in the same line as TPN or IVF that contains calcium. For double lumen central lines, phosphorou s may be infused in a separate lumen from TPN. sodium 2021-03 No Notes: Memoria phosphate 2-24 Infuse l 08:31: over 4 [place] 00 hour. Do not infuse phosphorou s concurrent ly in the same line as TPN or IVF that contains calcium. For double lumen central lines, phosphorou s may be infused in a separate lumen from TPN. magnesium 2021-03 No Notes: Memori a sulfate 2-24 WASTE: F/P l 08:31: - Sink; E [place] 00 - [place] Trash Bin magnesium 2021-03 No Notes: Memori a oxide 2-24 (Same as: l 08:31: Mag-Ox [place] 00 400) Magnesium oxide [id number] g elemental magnesium Dose=____m g magnesium oxide (___mg elemental magnesium) calcium 2021-03 No Notes: Memoria gluconate + 2-24 WASTE: F/P l Sodium 08:31: - Sink; E Eric n Chloride 00 - 0.9% IV 80 [place] mL Trash Bin calcium 2021-03 No Notes: Memoria gluconate + 2-24 WASTE: F/P l Sodium 08:31: - Sink; E Eric n Chloride 00 - 0.9% IV 100 [facility] mL Trash Bin potassium 2021-03 No /= 14 Memoria chloride 2-24 Polish, l 08:31: july [place] 00 dissolve each 20 mEq tablet in 4 oz of water. Allow about 2 minutes for the tablets to disintegra te. Stir before giving to prepare slurry and administer . Please exclude patient's with feeding tube less than 14 Polish (Dobhoff, J-tube, etc) and pediatric and patients. potassium 2021-03 No Notes: Memori a phosphate-s 2-24 (Same as: l odium 08:31: Phos-NaK) Tanvir phosphate 00 Each 1.5 250 mg-280 gm pkt has mg-160 mg 250mg oral powder phosphorou for s. Mix reconstitut w/2.5oz ion water and stir. potassium 2021-03 No Notes: Memori a phosphate 2-24 (Same as: l 08:31: K [place] Phosphate) Infuse over 4 hour. Do not infuse phosphorou s concurrent ly in the same line as TPN or IVF that contains calcium. For double lumen central lines, phosphorou s may be infused in a separate lumen from TPN. sodium 2021-03 No Notes: Memoria phosphate 2-24 Infuse l 08:31: over 4 [place] 00 hour. Do not infuse phosphorou s concurrent ly in the same line as TPN or IVF that contains calcium. For double lumen central lines, phosphorou s may be infused in a separate lumen from TPN. magnesium 2021-03 No Notes: Memori a sulfate 2-24 WASTE: F/P l 08:31: - Sink; E [place] 00 - Municipal Trash Bin magnesium 2021-03 No Notes: Memori a oxide 2-24 (Same as: l 08:31: Mag-Ox [place] 00 400) Magnesium oxide [id number] g elemental magnesium Dose=____m g magnesium oxide (___mg elemental magnesium) calcium 2021-03 No Notes: Memoria gluconate + 2-24 WASTE: F/P l Sodium 08:31: - Sink; E Eric n Chloride 00 - 0.9% IV 80 Municipal mL Trash Bin calcium 2021-03 No Notes: Memoria gluconate + 2-24 WASTE: F/P l Sodium 08:31: - Sink; E Eric n Chloride 00 - 0.9% IV 100 Municipal mL Trash Bin losartan 2021-03 No Notes: Memoria 2-23 (Same as: l 15:48: Cozaar) losartan 2021-03 No Notes: Memoria 2-23 (Same as: l 15:48: Cozaar) losartan 2021-03 No Notes: Memoria 2-23 (Same as: l 15:48: Cozaar) polyethylen 2021-03 No Notes: [place] to e glycol 2-23 Dissolve l 3350 15:00: in 8 oz of water or juice. (Same as: Miralax) aspirin 81 2021-03 No Notes: Do Me moria mg tablet, 2-23 not crush l enteric 15:00: or chew. Eric n coated 00 (Same As: Ecotrin) Plavix 2021-03 No Notes: Memoria 2-23 (Same As: l 15:00: Plavix) losartan 2021-03 No Notes: Memoria 2-23 (Same as: l 15:00: Cozaar) metoprolol 2021-03 No Notes: Memor ia tartrate 2-23 (Same as: l 15:00: Lopressor) topiramate 2021-03 No Notes: Memor ia 2-23 (Same As: l 15:00: Topamax) "Do Not Crush" Hazardous Drug Group 3:Reproduc tive risk Hazardous Drug -- Refer to safe handling procedure PPE Matrix hydrochloro 2021-03 No Notes: [place] to thiazide 25 2-23 (Same as: l mg oral 15:00: Hydrodiuri Herm radha tablet 00 l) With food. Protonix 2021-03 No Notes: For Mem oria 2-23 IV push l 15:00: reconstitu [place] 00 te with 10 ml 0.9% sodium chloride and push over 2 minutes. (Same as: Protonix) polyethylen 2021-03 No Notes: [place] to e glycol 2-23 Dissolve l 3350 15:00: in 8 oz of [place] 00 water or juice. (Same as: Miralax) aspirin 81 2021-03 No Notes: Do Me mor[place] mg tablet, 2-23 not crush l enteric 15:00: or chew. Eric n coated 00 (Same As: Ecotrin) Plavix 2021-03 No Notes: Memoria 2-23 (Same As: l 15:00: Plavix) losartan 2021-03 No Notes: Memoria 2-23 (Same as: l 15:00: Cozaar) metoprolol 2021-03 No Notes: Memor ia tartrate 2-23 (Same as: l 15:00: Lopressor) topiramate 2021-03 No Notes: Memor ia 2-23 (Same As: l 15:00: Topamax) "Do Not Crush" Hazardous Drug Group 3:Reproduc tive risk Hazardous Drug -- Refer to safe handling procedure PPE Matrix hydrochloro 2021-03 No Notes: [place] to thiazide 25 2-23 (Same as: l mg oral 15:00: Hydrodiuri Herm radha tablet 00 l) With food. Protonix 2021-03 No Notes: For Mem oria 2-23 IV push l 15:00: reconstitu Tanvir te with 10 ml 0.9% sodium chloride and push over 2 minutes. (Same as: Protonix) polyethylen 2021-03 No Notes: [place] to e glycol 2-23 Dissolve l 3350 15:00: in 8 oz of Tanvir 00 water or juice. (Same as: Miralax) aspirin 81 2021-03 No Notes: Do Me moria mg tablet, 2-23 not crush l enteric 15:00: or chew. Eric n coated 00 (Same As: Ecotrin) Plavix 2021-03 No Notes: Memoria 2-23 (Same As: l 15:00: Plavix) losartan 2021-03 No Notes: Memoria 2-23 (Same as: l 15:00: Cozaar) metoprolol 2021-03 No Notes: Memor ia tartrate 2-23 (Same as: l 15:00: Lopressor) [place] topiramate 2021-03 No Notes: Memor ia 2-23 (Same As: l 15:00: Topamax) [place] "Do Not Crush" Hazardous Drug Group 3:Reproduc tive risk Hazardous Drug -- Refer to safe handling procedure PPE Matrix hydrochloro 2021-03 No Notes: [place] to thiazide 25 2-23 (Same as: l mg oral 15:00: Hydrodiuri Herm radha tablet 00 l) With food. Protonix 2021-03 No Notes: For Mem oria 2-23 IV push l 15:00: reconstitu [place] 00 te with 10 ml 0.9% sodium chloride and push over 2 minutes. (Same as: Protonix) Lovenox 2021-03 No Notes: Memoria 2-23 (Same as: l 14:00: Lovenox) [place] Lovenox 2021-03 No Notes: Memoria 2-23 (Same as: l 14:00: Lovenox) Tanvir 00 Lovenox 2021-03 No Notes: Memoria 2-23 (Same as: l 14:00: Lovenox) Tanvir heparin 2021-03 No Notes: Memoria 2-23 porcine l 06:00: heparin [place] heparin 2021-03 No Notes: Memoria 2-23 porcine l 06:00: heparin [place] 00 heparin 2021-03 No Notes: Memoria 2-23 porcine l 06:00: heparin [place] 00 Saline 2021-03 No Notes: Memoria Flush 0.9% 2-23 Same as: l 03:00: BD [place] 00 Posiflush Sterile atorvastati 2021-03 No Notes: [place] to n 2-23 Same as l 03:00: Lipitor [place] 00 donepezil 2021-03 No Notes: Memori a 2-23 (Same as: l 03:00: Aricept) [place] 00 Saline 2021-03 No Notes: Memoria Flush 0.9% 2-23 Same as: l 03:00: BD [place] 00 Posiflush Sterile atorvastati 2021-03 No Notes: [place] ot n 2-23 Same as l 03:00: Lipitor Tanvir donepezil 2021-03 No Notes: Memori a 2-23 (Same as: l 03:00: Aricept) Saline 2021-03 No Notes: Memoria Flush 0.9% 2-23 Same as: l 03:00: BD Posiflush Sterile atorvastati 2021-03 No Notes: [place] to n 2-23 Same as l 03:00: Lipitor donepezil 2021-03 No Notes: Memori a 2-23 (Same as: l 03:00: Aricept) Dextrose 2021-03 No 12.5 gm, Memor ia 50% Syringe 2-23 25 mL, l (D50W) 01:54: Route: [place] 00 IVP, Drug Form: INJ, Dosing Weight 62.5, kg, PRN, PRN Blood Glucose Results, Start date: 02/26/22 19:54:00 [employer], Duration: 30 day, Stop date: 03/28/22 19:53:00 [employer]PER[employer]OR, 0 glucagon 2021-03 No 1 mg, Memoria 2-23 Route: IM, l 01:54: Drug form: PDR/INJ, PRN, Dosing Weight 62.5, kg, PRN Blood Glucose Results, Start date: 02/26/22 19:54:00 [employer] SUPER[employer]OR, Duration: 30 day, Stop date: 03/28/22 19:53:00 [employer] SUPERVISOR, 0 insulin 2021-03 No Notes: Memoria lispro 2-23 (Same as: l 01:54: Humalog) Roll in palms of hands gently; Do not shake vigorously . WASTE: F/P - Black; E - [place] Trash Bin Stable for 28 days at room temperatur e. Expires in days from ____Date Dextrose 2021-03 No 12.5 gm, Memor ia 50% Syringe 2-23 25 mL, l (D50W) 01:54: Route: Tanvir 00 IVP, Drug Form: INJ, Dosing Weight 62.5, kg, PRN, PRN Blood Glucose Results, Start date: 02/26/22 19:54:00 [employer] SUPER[employer]OR, Duration: 30 day, Stop date: 03/28/22 19:53:00 [employer] SUPERVISOR, 0 glucagon 2021-03 No 1 mg, Memoria 2-23 Route: IM, l 01:54: Drug form: Tanvir 00 PDR/INJ, PRN, Dosing Weight 62.5, kg, PRN Blood Glucose Results, Start date: 02/26/22 19:54:00 [employer] SUPERVISOR, Duration: 30 day, Stop date: 03/28/22 19:53:00 [employer] SUPERVISOR, 0 insulin 2021-03 No Notes: Memoria lispro 2-23 (Same as: l 01:54: Humalog) Tanvir 00 Roll in palms of hands gently; Do not shake vigorously . WASTE: F/P - Black; E - [place] Trash Bin Stable for 28 days at room temperatur e. Expires in days from ____Date Dextrose 2021-03 No 12.5 gm, Memor ia 50% Syringe 2- 25 mL, l (D50W) 01:54: Route: Tanvir 00 IVP, Drug Form: INJ, Dosing Weight 62.5, kg, PRN, PRN Blood Glucose Results, Start date: 02/26/22 19:54:00 [employer] SUPERVISOR, Duration: 30 day, Stop date: 03/28/22 19:53:00 [employer] SUPER[employer]OR, 0 glucagon 2021-03 No 1 mg, Memoria 2-23 Route: IM, l 01:54: Drug form: Tanvir 00 PDR/INJ, PRN, Dosing Weight 62.5, kg, PRN Blood Glucose Results, Start date: 02/26/22 19:54:00 [employer] SUPERVISOR, Duration: 30 day, Stop date: 03/28/22 19:53:00 [employer] SUPERVISOR, 0 insulin 2021-03 No Notes: Memoria lispro 2-23 (Same as: l 01:54: Humalog) Tanvir 00 Roll in palms of hands gently; Do not shake vigorously . WASTE: F/P - Black; E - [place] Trash Bin Stable for 28 days at room temperatur e. Expires in days from ____Date DuoNeb 2021-03 No Notes: Memoria inhalation 2-23 (Same as: l solution 01:52: Duoneb) Eric n 00 DuoNeb 2021-03 No Notes: Memoria inhalation 2-23 (Same as: l solution 01:52: Duoneb) Eric n 00 DuoNeb 2021-03 No Notes: Memoria inhalation 2-23 (Same as: l solution 01:52: Duoneb) Eric n 00 nitroglycer 2021-03 No 100 mg, Mem oria in 100 mg 2-23 250 mL, l in D5W 250 01:37: Rate: Eric n mL 00 Titrate, (Titrate.) Start IV 100 mg Dose: 10 microgram/ min, Titration: 10 microgram/ min every 5 minutes, Goal(s): Chest pain and SBP between 100 - 150 mmHg, Max Dose: 200 mcg/min, Route: IV, Dosing Weight 62.5 kg, Total Volume: 250, Priority: STAT, S... nitroglycer 2021-03 No 100 mg, Mem oria in 100 mg 2-23 250 mL, l in D5W 250 01:37: Rate: Eric n mL 00 Titrate, (Titrate.) Start IV 100 mg Dose: 10 microgram/ min, Titration: 10 microgram/ min every 5 minutes, Goal(s): Chest pain and SBP between 100 - 150 mmHg, Max Dose: 200 mcg/min, Route: IV, Dosing Weight 62.5 kg, Total Volume: 250, Priority: STAT, S... nitroglycer 2021-03 No 100 mg, Mem oria in 100 mg 2-23 250 mL, l in D5W 250 01:37: Rate: Eric n mL 00 Titrate, (Titrate.) Start IV 100 mg Dose: 10 microgram/ min, Titration: 10 microgram/ min every 5 minutes, Goal(s): Chest pain and SBP between 100 - 150 mmHg, Max Dose: 200 mcg/min, Route: IV, Dosing Weight 62.5 kg, Total Volume: 250, Priority: STAT, S... Eliquis 2.5 2021-03 No 2.5 mg, Mem oria mg oral 2-23 PO, Q12H, l tablet 00:27: tab, 0 [place] 00 Refill(s) Eliquis 2.5 2021-03 No 2.5 mg, Mem oria mg oral 2-23 PO, Q12H, l tablet 00:27: tab, 0 [place] 00 Refill(s) Eliquis 2.5 2021-03 No 2.5 mg, Mem oria mg oral 2-23 PO, Q12H, l tablet 00:27: tab, 0 [place] 00 Refill(s) dicyclomine 2021-03 Yes 5 mg, Q6H, Memoria 2-23 0 l 00:26: Refill(s) [place] 00 dicyclomine 2021-03 Yes 5 mg, Q6H, Memoria 2-23 0 l 00:26: Refill(s) [place] 00 dicyclomine 2021-03 Yes 5 mg, Q6H, [facility] 2-23 0 l 00:26: Refill(s) [place] 00 ipratropium 2021-03 Yes 0.5 mg, Mem oria 0.02% 2-23 NEB, Q6H, l inhalation 00:25: PRN [place] solution 00 wheezing, # 25 ea, 0 Refill(s) losartan 2021-03 No 25 mg = 1 M emoria mg oral 2-23 tab, PO, l tablet 00:25: Daily, # [place] 00 30 tab, 0 Refill(s) ipratropium 2021-03 Yes 0.5 mg, Mem oria 0.02% 2-23 NEB, Q6H, l inhalation 00:25: PRN [place] solution 00 wheezing, # 25 ea, 0 Refill(s) losartan 2021-03 No 25 mg = 1 M [place] mg oral 2-23 tab, PO, l tablet 00:25: Daily, # [place] 00 30 tab, 0 Refill(s) ipratropium 2021-03 Yes 0.5 mg, Mem oria 0.02% 2-23 NEB, Q6H, l inhalation 00:25: PRN [place] solution 00 wheezing, # 25 ea, 0 Refill(s) losartan 2021-03 No 25 mg = 1 M [place] mg oral 2-23 tab, PO, l tablet 00:25: Daily, # [place] 00 30 tab, 0 Refill(s) metoprolol 2021-03 No 25 mg = 1 Me moria tartrate 25 2-23 tab, PO, l mg oral 00:24: BID, # 180 [facility] radha tablet 00 tab, 0 Refill(s) metoprolol 2021-03 No 25 mg = 1 Me [place] tartrate 25 2-23 tab, PO, l mg oral 00:24: BID, # 180 [facility] radha tablet 00 tab, 0 Refill(s) metoprolol 2021-03 No 25 mg = 1 Me [place] tartrate 25 2-23 tab, PO, l mg oral 00:24: BID, # 180 [facility] radha tablet 00 tab, 0 Refill(s) budesonide 2021-03 Yes 180 [facility] 90 mcg/inh 2-23 microgram l inhalation 00:23: =, [place] powder 00 INHALATION , BID, 0 Refill(s) budesonide 2021-03 Yes 180 [place] 90 mcg/inh 2-23 microgram l inhalation 00:23: =, [place] powder 00 INHALATION , BID, 0 Refill(s) budesonide 2021-03 Yes 180 [place] 90 mcg/inh 2-23 microgram l inhalation 00:23: =, [place] powder 00 INHALATION , BID, 0 Refill(s) Plavix 75 2021-03 No 75 mg = 1 [facility] oria mg oral 2-23 tab, PO, l tablet 00:21: Daily, # [place] 00 30 tab, 0 Refill(s) albuterol 2021-03 Yes 2.49 mg = Mem oria 0.083% 2-23 3 mL, NEB, l inhalation 00:21: Q6H, PRN Her stewart solution 00 as needed for shortness of breath, # 120 ea, 3 Refill(s) Plavix 75 2021-03 No 75 mg = 1 [facility] mg oral 2-23 tab, PO, l tablet 00:21: Daily, # [place] 00 30 tab, 0 Refill(s) albuterol 2021-03 Yes 2.49 mg = Mem oria 0.083% 2-23 3 mL, NEB, l inhalation 00:21: Q6H, PRN Her stewart solution 00 as needed for shortness of breath, # 120 ea, 3 Refill(s) Plavix 75 2021-03 No 75 mg = 1 [facility] mg oral 2-23 tab, PO, l tablet 00:21: Daily, # [place] 00 30 tab, 0 Refill(s) albuterol 2021-03 Yes 2.49 mg = Mem oria 0.083% 2-23 3 mL, NEB, l inhalation 00:21: Q6H, PRN Her stewart solution 00 as needed for shortness of breath, # 120 ea, 3 Refill(s) nystatin 2021-03 No Notes: [facility]oria topical 2-23 (Same l 100,000 00:16: as:Mycosta Herm radha units/g 00 tin, powder Nilstat) For external use only. acetaminoph 2021-03 No Notes: Do M emoria en 2-23 not exceed l 00:16: 4 gm/day. [place] 00 (Same as: Tylenol) docusate-2021-03 No Notes: [place] to nna 50 2-23 (Same as l mg-8.6 mg 00:16: Senokot-S) He r[place] oral tablet 00 Equiv. to Urvashi-Colac e. Saline 2021-03 No Notes: [facility]oria Flush 0.9% 2-23 Same as: l 00:16: BD [place] 00 Posiflush Sterile nystatin 2021-03 No Notes: [facility] topical 2-23 (Same l 100,000 00:16: as:Mycosta Herm radha units/g 00 tin, powder Nilstat) For external use only. acetaminoph 2021-03 No Notes: Do M emoria en 2-23 not exceed l 00:16: 4 gm/day. [place] 00 (Same as: Tylenol) docusate2021-03 No Notes: [place] to nna 50 2-23 (Same as l mg-8.6 mg 00:16: Senokot-S) [place] oral tablet 00 Equiv. to Urvashi-Colac e. Saline 2021-03 No Notes: [facility] Flush 0.9% 2-23 Same as: l 00:16: BD [place] 00 Posiflush Sterile nystatin 2021-03 No Notes: [facility] topical 2-23 (Same l 100,000 00:16: as:Mycosta Herm radha units/g 00 tin, powder Nilstat) For external use only. acetaminoph 2021-03 No Notes: Do M emoria en 2-23 not exceed l 00:16: 4 gm/day. [place] 00 (Same as: Tylenol) docusate-2021-03 No Notes: [place] to nna 50 2-23 (Same as l mg-8.6 mg 00:16: Senokot-S) [place] oral tablet 00 Equiv. to Urvashi-Colac e. Saline 2021-03 No Notes: [facility] Flush 0.9% 2-23 Same as: l 00:16: BD [place] 00 Posiflush Sterile METOPROLOL 2021-03 Yes 25mg Take 25 mg U nivers TARTRATE 1-01 by mouth 2 ity o f ORAL 10:38: (two) [place] 39 times Medical daily. Branch budesonide- 2021-03 Yes 2{puff} Inhale 2 [facility] formoterol 1-01 Puffs 2 ity of (SYMBICORT) 10:38: (two) [place] 160-4.5 39 times Medical mcg/actuati daily. Branch on inhaler hydroCHLORO 2021-03 Yes 25mg Take 25 mg [facility] thiazide 25 1-01 by mouth ity of mg tablet 10:38: in the [place] [address] morning. Medical Branch topiramate 2021-03 Yes 25mg Take 25 mg U nivers 25 mg 1-01 by mouth ity of tablet 10:38: in the [place] 39 morning Medical and 25 mg Branch in the evening. losartan 25 2021-03 Yes 25mg Take 25 mg [facility] mg tablet 1-01 by mouth ity of 10:38: in the [place] 39 morning. Medical Branch donepeziL 5 2021-03 Yes 5mg Take 5 mg U nivers mg tablet 1-01 by mouth ity of 10:38: at [place] [address] bedtime. Medical Branch METOPROLOL 2021-03 Yes 25mg Take 25 mg U nivers TARTRATE 1-01 by mouth 2 ity o f ORAL 10:38: (two) [place] 39 times Medical daily. Branch budesonide- 2021-03 Yes 2{puff} Inhale 2 [facility] formoterol 1-01 Puffs 2 ity of (SYMBICORT) 10:38: (two) [place] 160-4.5 39 times Medical mcg/actuati daily. Branch on inhaler hydroCHLORO 2021-03 Yes 25mg Take 25 mg [facility] thiazide 25 1-01 by mouth ity of mg tablet 10:38: in the [place] 39 morning. Medical Branch topiramate 2021-03 Yes 25mg Take 25 mg U nivers 25 mg 1-01 by mouth ity of tablet 10:38: in the [place] [address] morning Medical and 25 mg Branch in the evening. losartan 25 2021-03 Yes 25mg Take 25 mg [facility] mg tablet 1-01 by mouth ity of 10:38: in the [place] [address] morning. Medical Branch donepeziL 5 2021-03 Yes 5mg Take 5 mg U nivers mg tablet 1-01 by mouth ity of 10:38: at [place] [address] bedtime. Medical Branch METOPROLOL 2021-03 Yes 25mg Take 25 mg U nivers TARTRATE 1-01 by mouth 2 ity o f ORAL 10:38: (two) [place] 39 times Medical daily. Branch budesonide- 2021-03 Yes 2{puff} Inhale 2 [facility] formoterol 1-01 Puffs 2 ity of (SYMBICORT) 10:38: (two) [place] 160-4.5 39 times Medical mcg/actuati daily. Branch on inhaler hydroCHLORO 2021-03 Yes 25mg Take 25 mg [facility] thiazide 25 1-01 by mouth ity of mg tablet 10:38: in the [place] [address] morning. Medical Branch topiramate 2021-03 Yes 25mg Take 25 mg U nivers 25 mg 1-01 by mouth ity of tablet 10:38: in the [place] [address] morning Medical and 25 mg Branch in the evening. losartan 2021-03 Yes 25mg Take 25 mg [facility] mg tablet 1-01 by mouth ity of 10:38: in the [place] [address] morning. Medical Branch donepeziL 5 2021-03 Yes 5mg Take 5 mg U nivers mg tablet 1-01 by mouth ity of 10:38: at [place] [address] bedtime. Medical Branch METOPROLOL 2021-03 Yes 25mg Take 25 mg U nivers TARTRATE 1-01 by mouth 2 ity o f ORAL 10:38: (two) [place] 39 times Medical daily. Branch budesonide- 2021-03 Yes 2{puff} Inhale 2 [facility] formoterol 1-01 Puffs 2 ity of (SYMBICORT) 10:38: (two) [place] 160-4.5 39 times Medical mcg/actuati daily. Branch on inhaler hydroCHLORO 2021-03 Yes 25mg Take 25 mg [facility] thiazide 25 1-01 by mouth ity of mg tablet 10:38: in the [place] 39 morning. Medical Branch topiramate 2021-03 Yes 25mg Take 25 mg U nivers 25 mg 1-01 by mouth ity of tablet 10:38: in the [place] 39 morning Medical and 25 mg Branch in the evening. losartan 25 2021-03 Yes 25mg Take 25 mg [facility] mg tablet 1-01 by mouth ity of 10:38: in the [place] 39 morning. Medical Branch donepeziL 5 2021-03 Yes 5mg Take 5 mg U nivers mg tablet 1-01 by mouth ity of 10:38: at [place] [address] bedtime. Medical Branch METOPROLOL 2021-03 Yes 25mg Take 25 mg U nivers TARTRATE 1-01 by mouth 2 ity o f ORAL 10:38: (two) [place] 39 times Medical daily. Branch budesonide- 2021-03 Yes 2{puff} Inhale 2 [facility] formoterol 1-01 Puffs 2 ity of (SYMBICORT) 10:38: (two) [place] 160-4.5 39 times Medical mcg/actuati daily. Branch on inhaler hydroCHLORO 2021-03 Yes 25mg Take 25 mg [facility] thiazide 25 1-01 by mouth ity of mg tablet 10:38: in the [place] 39 morning. Medical Branch topiramate 2021-03 Yes 25mg Take 25 mg U nivers 25 mg 1-01 by mouth ity of tablet 10:38: in the [place] 39 morning Medical and 25 mg Branch in the evening. losartan 25 2021-03 Yes 25mg Take 25 mg [facility] mg tablet 1-01 by mouth ity of 10:38: in the [place] [address] morning. Medical Branch donepeziL 5 2021-03 Yes 5mg Take 5 mg U nivers mg tablet 1-01 by mouth ity of 10:38: at [place] [address] bedtime. Medical Branch ELIQUIS 2.5 2021-03 Yes 2.5mg Take 2.5 U nivers mg tablet 0-12 mg by ity of 00:00: mouth 2 [place] 00 (two) Medical times Branch daily. ELIQUIS 2.5 2021-03 Yes 2.5mg Take 2.5 U nivers mg tablet 0-12 mg by ity of 00:00: mouth 2 [place] 00 (two) Medical times Branch daily. ELIQUIS 2.5 2021-03 Yes 2.5mg Take 2.5 U nivers mg tablet 0-12 mg by ity of 00:00: mouth 2 [place] 00 (two) Medical times Branch daily. ELIQUIS 2.5 2021-03 Yes 2.5mg Take 2.5 U nivers mg tablet 0-12 mg by ity of 00:00: mouth 2 [place] 00 (two) Medical times Branch daily. ELIQUIS 2.5 2021-03- No 2.5mg Take 2.5 [facility] mg tablet 0-12 01-06 mg by ity of 00:00: 00:00 mouth 2 [place] 00 :00 (two) Medical times Branch daily. predniSONE 2021-03 Yes 40mg 40 mg, Unive rs (DELTASONE) 0-07 Oral, ity of tablet 40 14:00: DAILY, [place] mg 00 First dose Medical on Wed Branch 12/12/21 at 0900, Until Discontinu ed, Routine predniSONE 2021-03- No [id number] 40mg Take 2 [facility] 20 mg 0-07 10-13 tablets by ity of tablet 00:00: 04:59 mouth in [place] 00 :00 the Medical morning Branch for 5 days. predniSONE 2021-03- No [id number] 40mg Take 2 [facility] 20 mg 0-07 10-13 tablets by ity of tablet 00:00: 04:59 mouth in [place] 00 :00 the Medical morning Branch for 5 days. METOPROLOL 2021-03 Yes 25mg [...] ity of mg tablet 17:38: in the [place] 40 morning. Medical Branch topiramate 2021-03 Yes 25mg Take 25 mg U nivers 25 mg 0-06 by mouth ity of tablet 17:38: in the [place] 40 morning Medical and 25 mg Branch in the evening. losartan 25 2021-03 Yes 25mg Take 25 mg Univers mg tablet 0-06 by mouth ity of 17:38: in the [place] 40 morning. Medical Branch donepeziL 5 2021-03 Yes 5mg Take 5 mg U nivers mg tablet 0-06 by mouth ity of 17:38: at [place] 40 bedtime. Medical Branch METOPROLOL 2021-03 Yes [...] mouth ity of tablet 17:38: in the [place] 40 morning Medical and 25 mg Branch in the evening. losartan 25 2021-03 Yes 25mg Take 25 mg Univers mg tablet 0-06 by mouth ity of 17:38: in the [place] 40 morning. Medical Branch donepeziL 5 2021-03 Yes 5mg Take 5 mg U nivers mg tablet 0-06 by mouth ity of 17:38: at [place] 40 bedtime. Medical Branch ipratropium 2021-03 Yes .5mg Inhale 0.5 Univers (ATROVENT) 0-06 mg. ity of 0.02 % 17:38: [place] nebulizer 40 Medical solution Branch ipratropium 2021-03 Yes .5mg Inhale 0.5 Univers (ATROVENT) 0-06 mg. ity of 0.02 % 17:38: [place] nebulizer 40 Medical solution Branch ipratropium 2021-03 Yes .5mg Inhale 0.5 Univers (ATROVENT) 0-06 mg. ity of 0.02 % 17:38: [place] nebulizer 40 Medical solution Branch ipratropium 2021-03 Yes .5mg Inhale 0.5 Univers (ATROVENT) 0-06 mg. ity of 0.02 % 17:38: [place] nebulizer 40 Medical solution Branch ipratropium 2021-03 Yes .5mg Inhale 0.5 Univers (ATROVENT) 0-06 mg. ity of 0.02 % 17:38: [place] nebulizer 40 Medical solution Branch ALPRAZolam 2021-03 No .25mg 0.25 mg, U nivers (XANAX) 0-06 10-06 Oral, ity of tablet 0.25 02:15: 01:35 ONCE, 1 [place] mg 00 :00 dose, On Medical Wed [facility] 12/10/21 at 2115, Routine clopidogreL 2021-03 Yes 75mg 75 mg, Univ ers (PLAVIX) 75 0-05 Oral, ity of mg tablet 14:00: DAILY, [place] 75 mg 00 First dose Medical on Wed Branch 12/10/21 at 0900, Until Discontinu ed, Routine aspirin EC 2021-03 Yes 81mg 81 mg, Unive rs tablet 81 0-05 Oral, ity of mg 14:00: DAILY, [place] 00 First dose Medical on Wed [facility] 12/10/21 at 0900, Until Discontinu ed, Routine enoxaparin 2021-03 Yes 40mg 40 mg, Unive rs (LOVENOX) 0-05 Subcutaneo ity of injection 14:00: us, DAILY, [place] 40 mg 00 First dose Medical on Wed Branch 12/10/21 at 0900, Until Discontinu ed, Routine losartan 2021-03 Yes 25mg 25 mg, Univers (COZAAR) 0-05 Oral, ity of tablet 25 14:00: DAILY, [place] mg 00 First dose Medical on Wed Branch 12/10/21 at 0900, Until Discontinu ed, Routine hydroCHLORO 2021-03 Yes 25mg 25 mg, Univ ers thiazide 0-05 Oral, ity of (ESIDRIX) 14:00: DAILY, [place] tablet 25 00 First dose Medi waqar mg on Wed Branch 12/10/21 at 0900, Until Discontinu ed, Routine ipratropium [...] at Branch 0800, Until Discontinu ed, Routine
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 approving Restricted medication : HOLGER MICHELLEBoo metoprolol 2021-03 Yes 25mg 25 mg, Unive rs tartrate 0-05 Oral, BID, ity o f (LOPRESSOR) 13:00: First dose [place] tablet 25 00 on Wed Medical mg 12/10/21 at Branch 0800, Until Discontinu ed methylpredn 2021-03 No 40mg 40 mg, Uni vers isolone sod 0-05 10-06 Slow IV ity of succ 05:00: 20:14 Push, Q6H, [place] (SOLU-MEDRO 00 :43 First dose Me dical L) on Wed Branch injection 12/10/21 at 40 mg 0000, Until Discontinu ed, Routine donepeziL 2021-03 Yes 5mg 5 mg, Univers (ARICEPT) 0-05 Oral, QHS, ity of tablet 5 mg 02:30: First dose [place] 00 on [facility] Medical 12/09/21 at Branch 2130, Until Discontinu ed, Routine budesonide- 2021-03 Yes 2{puff} 2 Puff, Univers formoteroL 0-05 Inhalation ity of (SYMBICORT) 02:30: , BID, [place] 160-4.5 00 First dose Medica l mcg/actuati on Wed on inhaler 12/09/21 at 2 Puff 0, Until Discontinu ed, Routine atorvastati 2022-1 Yes 40mg 40 mg, Univ ers n (LIPITOR) 0-05 Enteral, ity of tablet 40 02:30: QHS, First [place] mg 00 dose on Medical [facility] 12/09/21 at 2130, Until Discontinu ed, Routine ipratropium 2021-03 Yes 3mL 3 mL, Unive rs -albuteroL 0-05 Inhalation ity of (DUONEB) 02:20: , QIDPRN, [place] 0.5 mg-3 49 Starting Medical mg(2.5 mg on [facility] base)/3 mL 12/09/21 at nebulizer 2119, solution 3 Until mL Discontinu ed, Routine, Wheezing, Shortness of Breath, Bronchospa sm, Chest tightness ondansetron 2021-03 Yes 4mg 4 mg, Slow Univers (ZOFRAN 0-05 IV Push, ity of (PF)) 02:20: Q6HPRN, [place] injection 4 42 Starting Medi waqar mg on [facility] 12/09/21 at 2119, Until Discontinu ed, Routine, Nausea and Vomiting (N/V) traMADoL 2021-03 50mg 50 mg, Univer s (ULTRAM) 0-05 10-07 Oral, ity of tablet 50 02:20: 02:19 Q8HPRN, [place] mg 38 :38 Starting Medical on [facility] 12/09/21 at 2119, Until [place] 12/11/21 at 2119, Routine, Pain (scale 4-6) acetaminoph 2021-03 Yes 650mg 650 mg, Un sarahy en 0-05 Oral, ity of (TYLENOL) 02:20: Q6[place], [place] tablet 650 35 Starting Medic al mg on [facility] 12/09/21 at 0, Until Discontinu ed, Routine, Pain (scale 1-3) dicyclomine 2021-03 Yes 20mg 20 mg, Univ ers (BENTYL) 0-05 Oral, ity of tablet 20 02:16: Q6HPRN, [place] mg 51 Starting Medical on [facility] 12/09/21 at 2116, Until Discontinu ed, Routine, Abdominal pain cyclobenzap 2021-03 Yes 5mg 5 mg, Unive rs rine 0-05 Oral, ity of (FLEXERIL) 02:16: TIDPRN, [place] tablet 5 mg 33 Starting Medi waqar on e Branch 12/09/21 at 2116, Until Discontinu ed, Routine, Muscle Spasms methylpredn 2021-03- No 125mg 125 mg, U nivers isolone sod 0-04 10-04 Slow IV ity of succ 22:00: 21:08 Push, ONCE [place] (SOLU-MEDRO 00 :00 NOW, 1 Medica l L) dose, On Branch injection Tue 125 mg 12/09/21 at 1700, LORAINE ipratropium 2021-03- No 3mL 3 mL, Univ ers -albuteroL 0-04 10-04 Inhalation it y of (DUONEB) 22:00: 21:08 , ONCE, 1 [place] 0.5 mg-3 00 :00 dose, On Medical mg(2.5 mg [facility] base)/3 mL 12/09/21 at nebulizer 1700, LORAINE solution 3 mL iopamidol 2021-03- No [id number] 100mL 100 mL, Univers (ISOVUE 0-04 10-04 Intravenou ity o f 370-500 mL) 21:30: 20:21 s, ONCE, 1 [place] injection 00 :00 dose, On Medica l 100 mL [facility] Branch 12/09/21 at 1630, Routine morpHINE (4 2021-03- No 2mg 2 mg, Slow Univers mg/mL) 0-04 10-04 IV Push, ity of injection 2 19:15: 19:47 ONCE, 1 [place] mg 00 :00 dose, On Medical [facility] Branch 12/09/21 at 1415, STAT BREZTRI 2021-03 Yes INHALE 2 Univer s AEROSPHERE 0-03 PUFFS 2 ity of 160-9-4.8 00:00: (TWO) [place] mcg/actuati 00 TIMES A Medic al on HFAA DAY RINSE Branch MOUTH AFTER EACH USE. BREZTRI 2021-03 Yes INHALE 2 Univer s AEROSPHERE 0-03 PUFFS 2 ity of 160-9-4.8 00:00: (TWO) [place] mcg/actuati 00 TIMES A Medic al on HFAA DAY RINSE Branch MOUTH AFTER EACH USE. BREZTRI 2021-03 Yes INHALE 2 Univer s AEROSPHERE 0-03 PUFFS 2 ity of 160-9-4.8 00:00: (TWO) [place] mcg/actuati 00 TIMES A Medic al on RINSE Branch MOUTH AFTER EACH USE. BREZTRI 2021-03 Yes INHALE 2 Univer s AEROSPHERE 0-03 PUFFS 2 ity of 160-9-4.8 00:00: (TWO) [place] mcg/actuati 00 TIMES A Medic al on RINSE Branch MOUTH AFTER EACH USE. BREZTRI 2021-03 Yes INHALE 2 Univer s AEROSPHERE 0-03 PUFFS 2 ity of 160-9-4.8 00:00: (TWO) [place] mcg/actuati 00 TIMES A Medic al on DAY RINSE Branch MOUTH AFTER EACH USE. METOPROLOL Yes 25mg Take 25 mg U nivers TARTRATE 9-21 by mouth 2 ity o f ORAL 16:47: (two) [place] 19 times Medical daily. Branch ipratropium Yes .5mg Inhale 0.5 Univers (ATROVENT) 9-21 mg. ity of 0.02 % 16:47: [place] nebulizer 19 Medical solution Branch budesonide- Yes 2{puff} Inhale 2 Univers formoterol 9-21 Puffs 2 ity of (SYMBICORT) 16:47: (two) [place] 160-4.5 19 times Medical mcg/actuati daily. Branch on inhaler hydroCHLORO Yes 25mg Take 25 mg Univers thiazide 25 9-21 by mouth ity of mg tablet 16:47: in the [place] [address] morning. Medical Branch topiramate Yes 25mg Take 25 mg U nivers 25 mg 9-21 by mouth ity of tablet 16:47: in the [place] [address] morning Medical and 25 mg Branch in the evening. losartan 25 0 Yes 25mg Take 25 mg Univers mg tablet 9-21 by mouth ity of 16:47: in the [place] [address] morning. Medical Branch donepeziL 5 0 Yes 5mg Take 5 mg U nivers mg tablet 9-21 by mouth ity of 16:47: at [place] [address] bedtime. Medical Branch METOPROLOL 0 Yes 25mg Take 25 mg U nivers TARTRATE 9-21 by mouth 2 ity o f ORAL 16:47: (two) [place] 19 times Medical daily. Branch ipratropium 2021-0 Yes .5mg Inhale 0.5 Univers (ATROVENT) 9-21 mg. ity of 0.02 % 16:47: [place] nebulizer 19 Medical solution Branch budesonide- 2021-0 Yes 2{puff} Inhale 2 Univers formoterol 9-21 Puffs 2 ity of (SYMBICORT) 16:47: (two) [place] 160-4.5 19 times Medical mcg/actuati daily. Branch on inhaler hydroCHLORO 2021-0 Yes 25mg Take 25 mg Univers thiazide 25 9-21 by mouth ity of mg tablet 16:47: in the [place] [address] morning. Medical Branch topiramate 2021-0 Yes 25mg Take 25 mg U nivers 25 mg 9-21 by mouth ity of tablet 16:47: in the [place] [address] morning Medical and 25 mg Branch in the evening. losartan 25 2021-0 Yes 25mg Take 25 mg Univers mg tablet 9-21 by mouth ity of 16:47: in the [place] [address] morning. Medical Branch donepeziL 5 2021-0 Yes 5mg Take 5 mg U nivers mg tablet 9-21 by mouth ity of 16:47: at [place] [address] bedtime. Medical Branch METOPROLOL 2021-0 Yes 25mg Take 25 mg U nivers TARTRATE 9-21 by mouth 2 ity o f ORAL 16:47: (two) [place] 19 times Medical daily. Branch ipratropium 2021-0 Yes .5mg Inhale 0.5 Univers (ATROVENT) 9-21 mg. ity of 0.02 % 16:47: [place] nebulizer 19 Medical solution Branch budesonide- 2021-0 Yes 2{puff} Inhale 2 Univers formoterol 9-21 Puffs 2 ity of (SYMBICORT) 16:47: (two) [place] 160-4.5 19 times Medical mcg/actuati daily. Branch on inhaler hydroCHLORO 2021-0 Yes 25mg Take 25 mg Univers thiazide 25 9-21 by mouth ity of mg tablet 16:47: in the [place] [address] morning. Medical Branch topiramate 2021-0 Yes 25mg Take 25 mg U nivers 25 mg 9-21 by mouth ity of tablet 16:47: in the [place] [address] morning Medical and 25 mg Branch in the evening. losartan 25 Yes 25mg Take 25 mg Univers mg tablet 11-26 by mouth ity of 16:47: in the [place] [address] morning. Medical Branch donepeziL 5 Yes 5mg Take 5 mg U nivers mg tablet 11-26 by mouth ity of 16:47: at [place] [address] bedtime. Medical Branch aspirin EC Yes 81mg 81 mg, Unive rs tablet 81 11-26 Oral, ity of mg 14:00: DAILY, [place] [address] First dose Medical on Wed Branch 11/26/21 at 0900, Until Discontinu ed, Routine Saline Yes [id number] 6mL 6 mL, Unive rs Bubble 11-26 Injection, ity of Study 13:11: SEE-INSTRU [place] [address] CTIONS, Medical Starting Branch on Wed11/26/21 at 0811, Until Discontinu ed, Routine predniSONE 2021- No 20mg Take 20 mg Univers (DELTASONE) 11-26 by mouth ity of 20 mg 12:11: 00:00 daily. [place] tablet :00 Medical Branch levofloxaci 2021- No 500mg Take 500 Univers n 11-26 mg by ity of (LEVAQUIN) 12:11: 00:00 mouth [place] 750 mg 19 :00 every 24 Medical tablet (twenty-fo Branch ur) hours. albuterol 2021- No 2.5mg Inhale 2.5 Univers (PROVENTIL) 11-26 mg every 4 i ty of 2.5 mg /3 12:11: 00:00 (four) [place] mL (0.083 19 :00 hours as Medica l %) needed for Branch nebulizer Wheezing solution or Shortness of Breath. clopidogrel 2021-0 202- No 75mg Take 75 mg Univers (PLAVIX) 75 11-26 by mouth ity of mg tablet 12:11: 00:00 daily. [place] 19 :00 Medical Branch atorvastati Yes [id number] 40mg Take 1 Univers n 40 mg 11-26 tablet ity of tablet 00:00: through [place] 00 enteral Medical tube at Branch bedtime. clopidogreL 2022-0 Yes [id number] 75mg Take 1 Univers 75 mg 9-21 tablet by ity of tablet 00:00: mouth in [place] 00 the Medical morning. [facility] atorvastati 2021-0 Yes [id number] 40mg Take 1 Univers n 40 mg 9-21 tablet ity of tablet 00:00: through [place] 00 enteral Medical tube at [facility]. clopidogreL 2021-0 Yes [id number] 75mg Take 1 Univers 75 mg 9-21 tablet by ity of tablet 00:00: mouth in [place] 00 the Medical morning. Branch atorvastati 2021-0 Yes [id number] 40mg Take 1 Univers n 40 mg 9-21 tablet ity of tablet 00:00: through [place] [facility]-0 Yes [id number] 75mg Take 1 [facility] 75 mg 9-21 tablet by ity of tablet 00:00: mouth in [place] 00 the Medical morning. [facility] atorvastati 2021-0 Yes [id number] 40mg Take 1 Univers n 40 mg 9-21 tablet ity of tablet 00:00: through [place] 00 enteral Medical tube at [facility]. clopidogreL 2021-0 Yes [id number] 75mg Take 1 Univers 75 mg 9-21 tablet by ity of tablet 00:00: mouth in [place] 00 the Medical morning. [facility] atorvastati 2021-0 Yes [id number] 40mg Take 1 Univers n 40 mg 9-21 tablet ity of tablet 00:00: through [place] 00 enteral Medical tube at [facility]. clopidogreL 2021-0 Yes [id number] 75mg Take 1 Univers 75 mg 9-21 tablet by ity of tablet 00:00: mouth in [place] 00 the Medical morning. [facility] atorvastati 2021-0 Yes [id number] 40mg Take 1 Univers n 40 mg 9-21 tablet ity of tablet 00:00: through [place] 00 enteral Medical tube at [facility] bedtime. clopidogreL 2-0 Yes [id number] 75mg Take 1 [facility] 75 mg 9-21 tablet by ity of tablet 00:00: mouth in [place] 00 the Medical morning. [facility] atorvastati 2021-0 Yes [id number] 40mg Take 1 Univers n 40 mg 9-21 tablet ity of tablet 00:00: through [place] [address] enteral Medical tube at [facility]. clopidogreL 2021-0 Yes [id number] 75mg Take 1 [facility] 75 mg 9-21 tablet by ity of tablet 00:00: mouth in [place] 00 the Medical morning. Branch atorvastati 2021-0 Yes [id number] 40mg Take 1 [facility] n 40 mg 9-21 tablet ity of tablet 00:00: through [place] 00 enteral Medical tube at [facility] bedtime. clopidogreL 2021-0 Yes [id number] 75mg Take 1 [facility] 75 mg 9-21 tablet by ity of tablet 00:00: mouth in [place] 00 the Medical morning. Branch atorvastati 2021-0 Yes [id number] 40mg Take 1 [facility] n 40 mg 9-21 tablet ity of tablet 00:00: through [place] 00 enteral Medical tube at [facility] bedtime. clopidogreL 2021-0 Yes [id number] 75mg Take 1 [facility] 75 mg 9-21 tablet by ity of tablet 00:00: mouth in [place] 00 the Medical morning. [facility] atorvastati 0 Yes [id number] 40mg Take 1 [facility] n 40 mg 9-21 tablet ity of tablet 00:00: through [place] 00 enteral Medical tube at [facility] bedtime. clopidogreL 2021-0 Yes [id number] 75mg Take 1 [facility] 75 mg 9-21 tablet by ity of tablet 00:00: mouth in [place] 00 the Medical morning. [facility] atorvastati 2022- No [id number] 40mg Take 1 Univers n 40 mg 9-21 -06 tablet ity of tablet 00:00: 00:00 through [place] 00 :00 enteral Medical tube at [facility] bedtime. clopidogreL 2021-0 2022- No [id number] 75mg Take 1 [facility] 75 mg 9-21 01-06 tablet by ity of tablet 00:00: 00:00 mouth in [place] 00 :00 the Medical morning. [facility] aspirin 81 2021-0 2021- No [id number] 81mg Take 1 [facility] mg EC 9-21 10-13 tablet by ity of tablet 00:00: 04:59 mouth in [place] 00 :00 the Medical morning Branch for 21 days. aspirin 81 2021-0 2021- No [id number] 81mg Take 1 [facility] mg EC 9-21 10-13 tablet by ity of tablet 00:00: 04:59 mouth in [place] 00 :00 the Medical morning Branch for 21 days. aspirin 81 2021- No [id number] 81mg Take 1 [facility] mg EC 9-21 10-13 tablet by ity of tablet 00:00: 04:59 mouth in [place] 00 :[address] [facility] for 21 days. aspirin 81 0 2021- No [id number] 81mg Take 1 [facility] mg EC 9-21 10-13 tablet by ity of tablet 00:00: 04:59 mouth in [place] 00 :00 [facility] for 21 days. aspirin 81 2021- No [id number] 81mg Take 1 Univers mg EC 9-21 10-13 tablet by ity of tablet 00:00: 04:59 mouth in [place] 00 :00 [facility] for 21 days. sulfur 2021- No [id number] 5mL 5 mL, [facility] ers hexafluorid 11-25 Intravenou i ty of e microsphr 20:30: 20:30 s, ONCE, 1 [place] (LUMASON) 00 :00 dose, On Medica l injection 5 [facility] 11/25/21 at 1530, Routine
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 approving Restricted medication : DENICE BHAKTA clopidogreL Yes 75mg 75 mg, [facility] ers (PLAVIX) 75 -20 Oral, ity of mg tablet 14:00: DAILY, [place] 75 mg 00 First dose Medical on [facility] 11/25/21 at 0900, Until Discontinu ed, Routine atorvastati Yes 40mg 40 mg, Univ ers n (LIPITOR) 9-20 Enteral, ity of tablet 40 02:00: QHS, First [place] mg 00 dose on [facility] 11/24/21 at 2100, Until Discontinu ed, Routine donepeziL Yes 5mg 5 mg, Univers (ARICEPT) 9-20 Oral, QHS, ity of tablet 5 mg 02:00: First dose [place] 00 on [facility] 11/24/21 at Branch 2100, Until Discontinu ed, Routine heparin 0 Yes 5000U 5,000 Univers (porcine) 9-20 Units, ity of injection 01:00: Subcut[place]o [place] 5,000 Units 00 us, Q12H, Med ical First dose Branch on [facility] 11/24/21 at 2000, Until Discontinu ed, Routine aspirin No 81mg 81 mg, Univers chewable 11-24 Oral, ONCE ity of tablet 81 23:45: 01:35 NOW, 1 [place] mg 00 :00 dose, On Medical [facility] 11/24/21 at 1845, STAT cyclobenzap Yes 5mg 5 mg, Unive rs rine 11-24 Oral, ity of (FLEXERIL) 23:35: TIDPRN, [place] tablet 5 mg 48 Starting Medi waqar on [facility] 11/24/21 at 1835, Until Discontinu ed, Routine, Muscle Spasms clopidogreL 2021- No 300mg 300 mg, U nivers (PLAVIX) 11-24 Oral, ity of 300 mg 23:35: 01:35 ONCE, 1 [place] tablet 300 00 :00 dose, On Medic al mg [facility] 11/24/21 at 1845, Routine albuterol Yes 2.5mg 2.5 mg, Univ ers (PROVENTIL) 11-24 Inhalation it y of 2.5 mg /3 23:34: , Q4HPRN, [place] as mL (0.083 51 Starting Medica l %) on [facility] nebulizer 11/24/21 at solution 1834, 2.5 mg Until Discontinu ed, Routine, Wheezing, Shortness of Breath dicyclomine Yes 20mg 20 mg, Univ ers (BENTYL) 11-24 Oral, ity of tablet 20 23:34: Q6HPRN, [place] mg 37 Starting Medical on [facility] 11/24/21 at 1834, Until Discontinu ed, Routine, Abdominal pain NaCl 0.9% Yes 1000mL at 65 Unive rs (NS) IV 11-24 mL/hr, IV ity of infusion 23:15: Infusion, [place] 1,000 mL 00 CONTINUOUS Medic al , Starting Branch on [facility] 11/24/21 at 1815, Until Discontinu ed, Routine Omeprazole 2021- No Take by Uni vers Magnesium 11-24 mouth. ity of 20 mg 18:40: 00:00 [place] capsule 59 :00 [facility] Branch pantoprazol 2021- No 40mg Take 40 mg Univers e sodium 11-24 by mouth ity of (PROTONIX 18:40: 00:00 daily. [place] ORAL) 59 :00 [facility] iopamidol 2021- No [id number] 80mL 80 mL, Univers (ISOVUE 11-23 Intravenou ity o f 370-500 mL) 09:30: 08:28 s, ONCE, 1 [place] injection 00 :00 dose, On Medica l 80 mL [facility] 11/23/21 at 0430, Routine morpHINE (4 2021- No 4mg 4 mg, Slow Univers mg/mL) 11-23 IV Push, ity of injection 4 08:30: 07:43 ONCE, 1 [place] mg 00 :00 dose, On [facility] 11/23/21 at 0330, LORAINE ondansetron 2021- No 4mg 4 mg, Slow Univers (ZOFRAN 11-23 IV Push, ity of (PF)) 07:45: 07:44 ONCE, 1 [place] injection 4 00 :00 dose, On Medi waqar mg [facility] 11/23/21 at 0245, LORAINE aspirin 2021- No 325mg 325 mg, Unive rs tablet 325 11-23 Oral, ity of mg 07:45: 07:46 ONCE, 1 [place] 00 :00 dose, On [facility] 11/23/21 at 0245, STAT clopidogrel Yes 75mg Take 75 mg Univers (PLAVIX) 75 11-23 by mouth ity of mg tablet 06:17: daily. [place] 17 [facility] clopidogreL 0 Yes [id number] 75mg Take 1 [facility] 75 mg 9-18 tablet by ity of tablet 00:00: mouth in [place] 00 the Medical morning. Branch traMADoL 50 2021-0 Yes [id number] 50mg Take 1 Univ ers mg tablet 9-18 tablet by ity o f 00:00: mouth [place] 00 every 6 Medical (six) Branch hours as needed (pain). Indication s: acute pain ondansetron 2021-0 Yes [id number] 1 or 2 Univers 4 mg tablet 9-18 tablets ity o f 00:00: every 6 [place] 00 hours as Medical needed for Branch nausea traMADoL 50 2021-0 Yes [id number] 50mg Take 1 Univ ers mg tablet 9-18 tablet by ity o f 00:00: mouth [place] 00 every 6 Medical (six) Branch hours as needed (pain). Indication s: acute pain ondansetron 2021-0 Yes [id number] 1 or 2 Univers 4 mg tablet 9-18 tablets ity o f 00:00: every 6 [place] 00 hours as Medical needed for Branch nausea traMADoL 50 2021-0 Yes [id number] 50mg Take 1 Univ ers mg tablet 9-18 tablet by ity o f 00:00: mouth [place] 00 every 6 Medical (six) Branch hours as needed (pain). Indication s: acute pain traMADoL 50 2021-0 Yes [id number] 50mg Take 1 Univ ers mg tablet 9-18 tablet by ity o f 00:00: mouth [place] 00 every 6 Medical (six) Branch hours as needed (pain). Indication s: acute pain traMADoL 50 2021-0 Yes [id number] 50mg Take 1 Univ ers mg tablet 9-18 tablet by ity o f 00:00: mouth [place] 00 every 6 Medical (six) Branch hours as needed (pain). Indication s: acute pain traMADoL 50 2021-0 Yes [id number] 50mg Take 1 Univ ers mg tablet 9-18 tablet by ity o f 00:00: mouth [place] 00 every 6 Medical (six) Branch hours as needed (pain). Indication s: acute pain traMADoL 50 2021-0 Yes [id number] 50mg Take 1 Univ ers mg tablet 9-18 tablet by ity o f 00:00: mouth [place] 00 every 6 Medical (six) Branch hours as needed (pain). Indication s: acute pain traMADoL 50 2021-0 Yes [id number] 50mg Take 1 Univ ers mg tablet 9-18 tablet by ity o f 00:00: mouth [place] 00 every 6 Medical (six) Branch hours as needed (pain). Indication s: acute pain traMADoL 50 2021-0 Yes [id number] 50mg Take 1 Univ ers mg tablet 9-18 tablet by ity o f 00:00: mouth [place] 00 every 6 Medical (six) Branch hours as needed (pain). Indication s: acute pain traMADoL 50 2021-0 Yes [id number] 50mg Take 1 Univ ers mg tablet 9-18 tablet by ity o f 00:00: mouth [place] 00 every 6 Medical (six) Branch hours as needed (pain). Indication s: acute pain traMADoL 50 2021-0 Yes [id number] 50mg Take 1 Univ ers mg tablet 9-18 tablet by ity o f 00:00: mouth [place] 00 every 6 Medical (six) Branch hours as needed (pain). Indication s: acute pain traMADoL 50 2021-0 Yes [id number] 50mg Take 1 Univ ers mg tablet 9-18 tablet by ity o f 00:00: mouth [place] 00 every 6 Medical (six) Branch hours as needed (pain). Indication s: acute pain clopidogreL 2021- No [id number] 75mg Take 1 [facility] 75 mg 11-23 tablet by ity of tablet 00:00: 00:00 mouth in [place] 00 :00 the Medical morning. Branch iopamidol 2021- No [id number] 64mL 64 mL, U nivers (ISOVUE 11-08 [...] 4mg 4 mg, Slow Univers (ZOFRAN 11-08 IV Push, ity of (PF)) 18:36: 18:38 ONCE, 1 [place] injection 4 00 :00 dose, On Medi waqar mg 11/08/21 Branch at 1345, LORAINE hydroCHLORO Yes 25mg Take 25 mg Univers thiazide 25 11-08 by mouth ity of mg tablet 16:00: in the morning. Medical Branch topiramate Yes 25mg Take 25 mg U nivers 25 mg 11-08 by mouth ity of tablet 16:00: in the morning Medical and 25 mg Branch in the evening. losartan 25 Yes 25mg Take 25 mg Univers mg tablet 11-08 by mouth ity of 16:00: in the [place] [address] morning. Medical Branch donepeziL 5 2021-0 Yes 5mg Take 5 mg U nivers mg tablet 9-03 by mouth ity of 16:00: at [place] [address] bedtime. Medical Branch pantoprazol 2021-0 Yes 40mg Take 40 mg Univers e sodium 9-03 by mouth ity of (PROTONIX 16:00: daily. [place] ORAL) 20 Medical Branch hydroCHLORO 2021-0 Yes 25mg Take 25 mg Univers thiazide 25 9-03 by mouth ity of mg tablet 16:00: in the [place] [address] morning. Medical Branch topiramate 2021-0 Yes 25mg Take 25 mg U nivers 25 mg 9-03 by mouth ity of tablet 16:00: in the [place] [address] morning Medical and 25 mg Branch in the evening. losartan 25 2021-0 Yes 25mg Take 25 mg Univers mg tablet 9-03 by mouth ity of 16:00: in the [place] [address] morning. Medical Branch donepeziL 5 2021-0 Yes 5mg Take 5 mg U nivers mg tablet -03 by mouth ity of 16:00: at [place] [address] bedtime. Medical Branch pantoprazol 2021-0 Yes 40mg Take 40 mg Univers e sodium 9-03 by mouth ity of (PROTONIX 16:00: daily. [place] ORAL) 20 Medical Branch dicyclomine 2-0 Yes [id number] 20mg Take 1 [facility] 20 mg 9-03 tablet by ity of tablet 00:00: mouth 4 [place] 00 (four) Medical times Branch daily. ondansetron 2022-0 Yes [id number] 4mg Take 1 Univers 4 mg 9-03 tablet by ity of disintegrat 00:00: mouth [place] ing tablet 00 every 4 Medica l (four) Branch hours as needed for Nausea and Vomiting (N/V). dicyclomine 2022-0 Yes [id number] 20mg Take 1 Univers 20 mg 9-03 tablet by ity of tablet 00:00: mouth 4 [place] 00 (four) Medical times Branch daily. ondansetron 2022-0 Yes [id number] 4mg Take 1 Univers 4 mg 9-03 tablet by ity of disintegrat 00:00: mouth [place] ing tablet 00 every 4 Medica l (four) Branch hours as needed for Nausea and Vomiting (N/V). dicyclomine 2022-0 Yes [id number] 20mg Take 1 [facility] 20 mg 9-03 tablet by ity of tablet 00:00: mouth 4 [place] 00 (four) Medical times Branch daily. ondansetron 2-0 Yes 4mg Take 1 [facility] 4 mg 9-03 tablet by ity of disintegrat 00:00: mouth [place] ing tablet 00 every 4 Medica l (four) Branch hours as needed for Nausea and Vomiting (N/V). ondansetron 2021-0 Yes 4mg Take 1 [facility] 4 mg 9-03 tablet by ity of disintegrat 00:00: mouth [place] ing tablet 00 every 4 Medica l (four) Branch hours as needed for Nausea and Vomiting (N/V). ondansetron 2021-0 Yes 4mg Take 1 Univers 4 mg 9-03 tablet by ity of disintegrat 00:00: mouth [place] ing tablet 00 every 4 Medica l (four) Branch hours as needed for Nausea and Vomiting (N/V). ondansetron 2021-0 Yes 4mg Take 1 Univers 4 mg 9-03 tablet by ity of disintegrat 00:00: mouth [place] ing tablet 00 every 4 Medica l (four) Branch hours as needed for Nausea and Vomiting (N/V). ondansetron 2021-0 Yes 4mg Take 1 Univers 4 mg 9-03 tablet by ity of disintegrat 00:00: mouth [place] ing tablet 00 every 4 Medica l (four) Branch hours as needed for Nausea and Vomiting (N/V). ondansetron 2-0 Yes 4mg Take 1 Univers 4 mg 9-03 tablet by ity of disintegrat 00:00: mouth [place] ing tablet 00 every 4 Medica l (four) Branch hours as needed for Nausea and Vomiting (N/V). ondansetron 2-0 Yes [id number] 4mg Take 1 Univers 4 mg 9-03 tablet by ity of disintegrat 00:00: mouth [place] ing tablet 00 every 4 Medica l (four) Branch hours as needed for Nausea and Vomiting (N/V). ondansetron 2-0 Yes [id number] 4mg Take 1 Univers 4 mg 9-03 tablet by ity of disintegrat 00:00: mouth [place] ing tablet 00 every 4 Medica l (four) Branch hours as needed for Nausea and Vomiting (N/V). ondansetron 2021-0 Yes [id number] 4mg Take 1 Univers 4 mg 9-03 tablet by ity of disintegrat 00:00: mouth [place] ing tablet 00 every 4 Medica l (four) Branch hours as needed for Nausea and Vomiting (N/V). ondansetron 2021-0 Yes [id number] 4mg Take 1 Univers 4 mg 9-03 tablet by ity of disintegrat 00:00: mouth [place] ing tablet 00 every 4 Medica l (four) Branch hours as needed for Nausea and Vomiting (N/V). ondansetron 2021-0 Yes [id number] 4mg Take 1 Univers 4 mg 9-03 tablet by ity of disintegrat 00:00: mouth [place] ing tablet 00 every 4 Medica l (four) Branch hours as needed for Nausea and Vomiting (N/V). maalox:diph 2021-2021- No 15mL 15 mL, Uni vers enhydrAMINE 08-31 Oral, ity of :lidocaine 22:45: 21:49 ONCE, 1 [place] 2 % viscous 00 :00 dose, On Medi waqar 1:1:1 [place] ([facility] 08/31/21 at [facility]) 1745, oral Routine suspension 15 mL dicyclomine No 20mg 20 mg, Uni vers (BENTYL) 08-31 Oral, ity of tablet 20 22:45: 21:49 ONCE, 1 [place] mg 00 :00 dose, On [facility] 08/31/21 at 1745, Routine ondansetron 2021- No 4mg 4 mg, Slow Univers (ZOFRAN 08-31 IV Push, ity of (PF)) 21:00: 20:08 ONCE, 1 [place] injection 4 00 :00 dose, On [facility] waqar [facility] Branch 08/31/21 at 1600, LORAINE morpHINE (4 2021- No 4mg 4 mg, Slow Univers mg/mL) 08-31 IV Push, ity of injection 4 21:00: 20:09 ONCE, 1 [place] mg 00 :00 dose, On [facility] Branch 08/31/21 at 1600, STAT NaCl 0.9% 2021- No 1000mL at 999 Uni vers (NS) bolus 08-31- mL/hr, ity of infusion 21:00: 21:36 1,000 mL, [place] as 1,000 mL 00 :00 IV Medical Infusion, Branch ONCE, 1 dose, On [place] 08/31/21 at 1600, LORAINE iopamidol 2021- No [id number] 70mL 70 mL, Univers (ISOVUE 08-31 Intravenou ity o f 300-500 mL) 20:52: 21:00 s, ONCE, 1 [place] injection 00 :00 dose, On Medica l 70 mL [place] [facility] 08/31/21 at 1600, Routine Omeprazole 0 Yes Take by [facility] Magnesium 6-26 mouth. ity of 20 mg 14:47: [address] albuterol Yes 2.5mg Inhale 2.5 U nivers (PROVENTIL) 6-26 mg every 4 it y of 2.5 mg /3 14:47: (four) [place] mL (0.083 32 hours as Medica l %) needed for Branch nebulizer Wheezing solution or Shortness of Breath. clopidogrel Yes 75mg Take 75 mg Univers (PLAVIX) 75 6-26 by mouth ity of mg tablet 14:47: daily. [address] Omeprazole 0 Yes Take by [facility] Magnesium 6-26 mouth. ity of 20 mg 14:47: [address] albuterol Yes 2.5mg Inhale 2.5 U nivers (PROVENTIL) 6-26 mg every 4 it y of 2.5 mg /3 14:47: (four) [place] mL (0.083 32 hours as Medica l %) needed for Branch nebulizer Wheezing solution or Shortness of Breath. clopidogrel 0 Yes 75mg Take 75 mg Univers (PLAVIX) 75 6-26 by mouth ity of mg tablet 14:47: daily. [address] Omeprazole [address] [facility] ers Magnesium 6-26 mouth. ity of 20 mg 14:47: [address] albuterol 0 Yes 2.5mg Inhale 2.5 U nivers (PROVENTIL) 6-26 mg every 4 it y of 2.5 mg /3 14:47: (four) [place] mL (0.083 32 hours as Medica l %) needed for Branch nebulizer Wheezing solution or Shortness of Breath. dicyclomine 2022-0 Yes [id number] 20mg Take 1 Univers 20 mg 6-26 tablet by ity of tablet 00:00: mouth [place] 00 every 6 Medical (six) Branch hours as needed for Abdominal pain. dicyclomine 2022-0 Yes [id number] 20mg Take 1 [facility] 20 mg 6-26 tablet by ity of tablet 00:00: mouth [place] 00 every 6 Medical (six) Branch hours as needed for Abdominal pain. dicyclomine 2022-0 Yes [id number] 20mg Take 1 [facility] 20 mg 6-26 tablet by ity of tablet 00:00: mouth [place] 00 every 6 Medical (six) Branch hours as needed for Abdominal pain. dicyclomine 2022-0 Yes [id number] 20mg Take 1 [facility] 20 mg 6-26 tablet by ity of tablet 00:00: mouth [place] 00 every 6 Medical (six) Branch hours as needed for Abdominal pain. dicyclomine 2022-0 Yes [id number] 20mg Take 1 [facility] 20 mg 6-26 tablet by ity of tablet 00:00: mouth [place] 00 every 6 Medical (six) Branch hours as needed for Abdominal pain. dicyclomine 2022-0 Yes [id number] 20mg Take 1 [facility] 20 mg 6-26 tablet by ity of tablet 00:00: mouth [place] 00 every 6 Medical (six) Branch hours as needed for Abdominal pain. dicyclomine 2022-0 Yes [id number] 20mg Take 1 [facility] 20 mg 6-26 tablet by ity of tablet 00:00: mouth [place] 00 every 6 Medical (six) Branch hours as needed for Abdominal pain. dicyclomine 2022-0 Yes [id number] 20mg Take 1 [facility] 20 mg 6-26 tablet by ity of tablet 00:00: mouth [place] 00 every 6 Medical (six) Branch hours as needed for Abdominal pain. dicyclomine 2022-0 Yes [id number] 20mg Take 1 [facility] 20 mg 6-26 tablet by ity of tablet 00:00: mouth [place] 00 every 6 Medical (six) Branch hours as needed for Abdominal pain. dicyclomine 2022-0 Yes [id number] 20mg Take 1 [facility] 20 mg 6-26 tablet by ity of tablet 00:00: mouth [place] 00 every 6 Medical (six) Branch hours as needed for Abdominal pain. dicyclomine 0 Yes [id number] 20mg Take 1 [facility] 20 mg 6-26 tablet by ity of tablet 00:00: mouth [place] 00 every 6 Medical (six) Branch hours as needed for Abdominal pain. dicyclomine 0 Yes [id number] 20mg Take 1 [facility] 20 mg 6-26 tablet by ity of tablet 00:00: mouth [place] 00 every 6 Medical (six) Branch hours as needed for Abdominal pain. dicyclomine 0 Yes [id number] 20mg Take 1 [facility] 20 mg 6-26 tablet by ity of tablet 00:00: mouth [place] 00 every 6 Medical (six) Branch hours as needed for Abdominal pain. dicyclomine Yes [id number] 20mg Take 1 [facility] 20 mg 6-26 tablet by ity of tablet 00:00: mouth [place] 00 every 6 Medical (six) Branch hours as needed for Abdominal pain. Aspirin 81 No Notes: Do Me mor[place] MG Enteric 3-26 not crush l Coated 14:00: or chew. [place] Tablet 00 (Same As: Ecotrin) Losartan No Notes: Memoria 3-26 (Same as: l 14:00: Cozaar) [place] 00 Hydrochloro No Notes: [place] to thiazide 25 3-26 (Same as: l MG Oral 14:00: Hydrodiuri Herm radha Tablet 00 l) With food. topiramate No Notes: Memor ia 3-26 (Same As: l 14:00: Topamax) "Do Not Crush" Hazardous Drug Group 3:Reproduc tive risk Hazardous Drug -- Refer to safe handling procedure PPE Matrix Aspirin 81 No Notes: Do Me [place] MG Enteric 3-26 not crush l Coated 14:00: or chew. [place] Tablet 00 (Same As: Ecotrin) Losartan No Notes: [place] 3-26 (Same as: l 14:00: Cozaar) [place] 00 Hydrochloro No Notes: [place] to thiazide 25 3-26 (Same as: l MG Oral 14:00: Hydrodiuri Herm radha Tablet 00 l) With food. topiramate No Notes: Memor ia 3-26 (Same As: l 14:00: Topamax) "Do Not Crush" Hazardous Drug Group 3:Reproduc tive risk Hazardous Drug -- Refer to safe handling procedure PPE Matrix Aspirin 81 No Notes: Do Me [place] MG Enteric 3-26 not crush l Coated 14:00: or chew. [place] Tablet 00 (Same As: Ecotrin) Losartan No Notes: [place] 3-26 (Same as: l 14:00: Cozaar) Hydrochloro No Notes: [place] to thiazide 25 3-26 (Same as: l MG Oral 14:00: Hydrodiuri Herm radha Tablet 00 l) With food. topiramate No Notes: Memor ia 3-26 (Same As: l 14:00: Topamax) "Do Not Crush" Hazardous Drug Group 3:Reproduc tive risk Hazardous Drug -- Refer to safe handling procedure PPE Matrix atorvastati No Notes: [place] to n 3-26 (Same as: l 02:00: Lipitor) donepezil No Notes: Memori a 3-26 (Same as: l 02:00: Aricept) atorvastati No Notes: [place] to n 3-26 (Same as: l 02:00: Lipitor) donepezil No Notes: Memori a 3-26 (Same as: l 02:00: Aricept) atorvastati No Notes: [place] to n 3-26 (Same as: l 02:00: Lipitor) donepezil No Notes: Memori a 3-26 (Same as: l 02:00: Aricept) Albuterol No Notes: Memori a 0.833 MG/ML 3- (Same as: l / 22:42: Duoneb) Ipratropium 00 [place] 0.167 MG/ML Inhalant Solution [DuoNeb] tramadol No Notes: Not Mem oria hydrochlori 3-25 to exceed l de 50 MG 22:42: 400mg/day. Her [place] Oral Tablet 00 (Same As: Ultram) Nitroglycer No Notes: [place] to in -25 (Same l 22:42: as:Nitroqu [place] 00 ick, Nitrostat) "Do Not Crush" Sublingual tablet Hydralazine No Notes: [place] to 3-25 (Same as: l 22:42: Apresoline [place] 00 ) Push over 5 minutes Albuterol No Notes: Memori a 0.833 MG/ML 3-25 (Same as: l / 22:42: Duoneb) [place] Ipratropium 00 [place] 0.167 MG/ML Inhalant Solution [DuoNeb] tramadol No Notes: Not Mem oria hydrochlori 3-25 to exceed l de 50 MG 22:42: 400mg/day. Her [place] Oral Tablet 00 (Same As: Ultram) Nitroglycer No Notes: [place] to in -25 (Same l 22:42: as:Nitroqu [place] 00 ick, Nitrostat) "Do Not Crush" Sublingual tablet Hydralazine No Notes: [place] to 3-25 (Same as: l 22:42: Apresoline [place] 00 ) Push over 5 minutes Albuterol No Notes: Memori a 0.833 MG/ML 3-25 (Same as: l / 22:42: Duoneb) [place] Ipratropium 00 [place] 0.167 MG/ML Inhalant Solution [DuoNeb] tramadol No Notes: Not Mem oria hydrochlori 3-25 to exceed l de 50 MG 22:42: 400mg/day. Her [place] Oral Tablet 00 (Same As: Ultram) Nitroglycer No Notes: [place] to in -25 (Same l 22:42: as:Nitroqu [place] 00 ick, Nitrostat) "Do Not Crush" Sublingual tablet Hydralazine No Notes: [place] to 3-25 (Same as: l 22:42: Apresoline [place] 00 ) Push over 5 minutes Docusate No Notes: Memoria 05-30 (Same as: l 22:00: Colace) [place]vir (Do Not Crush) Docusate No Notes: [place] 05-30 (Same as: l 22:00: Colace) [place]vir (Do Not Crush) Docusate No Notes: [place] 05-30 (Same as: l 22:00: Colace) [place] (Do Not Crush) Dextrose 0 No 250 mL, Memori a 10% in 05-30 Rate: 999 l Water IV 21:44: ml/hr, [place] Infuse over: 0.3 hr, Route: IV, Total Volume: 250, Start date: 05/30/21 16:44:00 CDT, Duration: 30 day, Stop date: 06/29/21 16:43:00 CDT, PRN Blood Glucose Results, 0 Dextrose No 250 mL, Memori a 10% in 05-30 Rate: 999 l [place] IV 21:44: ml/hr, [place] 00 Infuse over: 0.3 hr, Route: IV, Total Volume: 250, Start date: 05/30/21 16:44:00 CDT, Duration: 30 day, Stop date: 06/29/21 16:43:00 CDT, PRN Blood Glucose Results, 0 Dextrose No 250 mL, Memori a 10% in 05-30 Rate: 999 l [place] IV 21:44: ml/hr, [place] 00 Infuse over: 0.3 hr, Route: IV, Total Volume: 250, Start date: 05/30/21 16:44:00 CDT, Duration: 30 day, Stop date: 06/29/21 16:43:00 CDT, PRN Blood Glucose Results, 0 Dextrose 0 No 125 mL, Memori a 10% in 05-30 Rate: 999 l [place] IV 21:43: ml/hr, [place] 00 Infuse over: 0.1 hr, Route: IV, Total Volume: 125, Start date: 05/30/21 16:43:00 CDT, Duration: 30 day, Stop date: 06/29/21 16:42:00 CDT, PRN Blood Glucose Results, 0 Dextrose 2021-0 No 125 mL, Memori a 10% in 05-30 Rate: 999 l [place] IV 21:43: ml/hr, Infuse over: 0.1 hr, Route: IV, Total Volume: 125, Start date: 05/30/21 16:43:00 CDT, Duration: 30 day, Stop date: 06/29/21 16:42:00 CDT, PRN Blood Glucose Results, 0 Dextrose 2021-0 No 125 mL, Memori a 10% in 05-30 Rate: 999 l [place] IV 21:43: ml/hr, Infuse over: 0.1 hr, Route: IV, Total Volume: 125, Start date: 05/30/21 16:43:00 CDT, Duration: 30 day, Stop date: 06/29/21 16:42:00 CDT, PRN Blood Glucose Results, 0 Dextrose 2021-0 No 25 mL, Memoria 50% Syringe 05-30 Route: l (D50W) 21:31: IVP, Dosing Weight 71.818, kg, PRN, PRN Blood Glucose Results, Start date: 05/30/21 16:31:00 CDT, Duration: 30 day, Stop date: 06/29/21 16:30:00 CDT Glucagon No 1 mg, Memoria 05-30 Route: IM, l 21:31: Drug form: PDR/INJ, PRN, Dosing Weight 71.818, kg, PRN Blood Glucose Results, Start date: 05/30/21 16:31:00 CDT, Duration: 30 day, Stop date: 06/29/21 16:30:00 CDT, 0 Ondansetron No Notes: [place] to 05-30 (Same as: l 21:31: Zofran) MEDICATION WASTE Product Size: 4 mg Product Wasted: ___ mg Acetaminoph No Notes: Do Karon laineza en 05-30 not exceed l 21:31: 4 gm/day. (Same as: Tylenol) Dextrose 2021-0 No 25 mL, Memoria 50% Syringe 05-30 Route: l (D50W) 21:31: IVP, Tanvir 00 Dosing Weight 71.818, kg, PRN, PRN Blood Glucose Results, Start date: 05/30/21 16:31:00 CDT, Duration: 30 day, Stop date: 06/29/21 16:30:00 CDT Glucagon 2022-0 No 1 mg, Memoria 05-30 Route: IM, l 21:31: Drug form: Tanvir PDR/INJ, PRN, Dosing Weight 71.818, kg, PRN Blood Glucose Results, Start date: 05/30/21 16:31:00 CDT, Duration: 30 day, Stop date: 06/29/21 16:30:00 CDT, 0 Ondansetron 2021-0 No Notes: [place] to 3-25 (Same as: l 21:31: Zofran) [place] 00 MEDICATION WASTE Product Size: 4 mg Product Wasted: ___ mg Acetaminoph 2021-0 No Notes: Do M emoria en - not exceed l 21:31: 4 gm/day. [place] 00 (Same as: Tylenol) Dextrose 2021-0 No 25 mL, Memoria 50% Syringe 05-30 Route: l (D50W) 21:31: IVP, Dosing Weight 71.818, kg, PRN, PRN Blood Glucose Results, Start date: 05/30/21 16:31:00 CDT, Duration: 30 day, Stop date: 06/29/21 16:30:00 CDT Glucagon 2021-0 No 1 mg, Memoria 05-30 Route: IM, l 21:31: Drug form: PDR/INJ, PRN, Dosing Weight 71.818, kg, PRN Blood Glucose Results, Start date: 05/30/21 16:31:00 CDT, Duration: 30 day, Stop date: 06/29/21 16:30:00 CDT, 0 Ondansetron 2021-0 No Notes: [place] to 3-25 (Same as: l 21:31: Zofran) [place] 00 MEDICATION WASTE Product Size: 4 mg Product Wasted: ___ mg Acetaminoph 2021-0 No Notes: Do M emoria en -25 not exceed l 21:31: 4 gm/day. [place] 00 (Same as: Tylenol) topiramate 2021-0 Yes = 1 tab, Mem oria 25 mg oral 3-23 PO, BID, # l tablet 14:04: 180 tab, 3 Eugenia nn 00 Refill(s), Pharmacy: [facility] STORE [id number], 172.72, cm, 05/08/21 9:02:00 [employer], Height, 70.455, kg, 05/08/21 9:02:00 [employer], Weight topiramate 2021-0 Yes = 1 tab, Mem oria 25 mg oral 3-23 PO, BID, # l tablet 14:04: 180 tab, 3 Eug[place] nn 00 Refill(s), Pharmacy: [facility] STORE [id number], 172.72, cm, 05/08/21 9:02:00 [employer], Height, 70.455, kg, 05/08/21 9:02:00 [employer]PER[employer]OR, Weight topiramate 2021-0 Yes = 1 tab, Mem oria 25 mg oral 3-23 PO, BID, # l tablet 14:04: 180 tab, 3 Eugenia nn 00 Refill(s), Pharmacy: [facility] STORE [id number], 172.72, cm, 05/08/21 9:02:00 [employer], Height, 70.455, kg, 05/08/21 9:02:00 [employer], Weight topiramate 2021-0 Yes 25 mg = 1 Me moria 25 mg oral 3-03 tab, PO, l tablet 15:26: Q12H, # 60 Eugenia nn 00 tab, 3 Refill(s), Pharmacy: [facility] STORE #[id number], 172.72, cm, 05/08/21 9:02:00 [employer], Height, 70.455, kg, 05/08/21 9:02:00 [employer], Weight donepezil 5 2021-0 Yes 5 mg = 1 Me moria mg oral 3-03 tab, PO, l tablet 15:26: Bedtime, # Eugenia nn 00 30 tab, 3 Refill(s), Pharmacy: [facility] STORE #[id number], 172.72, cm, 05/08/21 9:02:00 [employer], Height, 70.455, kg, 05/08/21 9:02:00 [employer]OR, Weight topiramate 2022-0 Yes 25 mg = 1 Me moria 25 mg oral 3-03 tab, PO, l tablet 15:26: Q12H, # 60 Eugenia nn 00 tab, 3 Refill(s), Pharmacy: [facility] #[id number], 172.72, cm, 05/08/21 9:02:00 [employer], Height, 70.455, kg, 05/08/21 9:02:00 [employer]OR, Weight donepezil 5 0 Yes 5 mg = 1 Me moria mg oral 3-03 tab, PO, l tablet 15:26: Bedtime, # Eug[place] nn 00 30 tab, 3 Refill(s), Pharmacy: [facility] ST[facility] #[id number], 172.72, cm, 05/08/21 9:02:00 [employer], Height, 70.455, kg, 05/08/21 9:02:00 [employer]PER[employer], Weight topiramate Yes 25 mg = 1 Me moria 25 mg oral 3-03 tab, PO, l tablet 15:26: Q12H, # 60 Eugenia nn 00 tab, 3 Refill(s), Pharmacy: [facility] ST[facility] #[id number], 172.72, cm, 05/08/21 9:02:00 [employer]PER[employer]OR, Height, 70.455, kg, 05/08/21 9:02:00 [employer]PER[employer]OR, Weight donepezil 5 0 Yes 5 mg = 1 Me moria mg oral 3-03 tab, PO, l tablet 15:26: Bedtime, # Eugenia nn 00 30 tab, 3 Refill(s), [id number], 172.72, cm, 05/08/21 9:02:00 [employer], Height, 70.455, kg, 05/08/21 9:02:00 [employer]PER[employer], Weight Aspirin No Notes: Do Memor ia 1-31 not crush l 15:00: or chew. [place] (Same As: Ecotrin) Aspirin No Notes: Do Memor ia 1-31 not crush l 15:00: or chew. [place] (Same As: Ecotrin) Aspirin No Notes: Do Memor ia 1-31 not crush l 15:00: or chew. [place] 00 (Same As: Ecotrin) sennosides, No Notes: [place] to PRISON 1-31 (Same as: l 03:00: Senokot) atorvastati No Notes: [place] to n 1-31 Same as l 03:00: Lipitor donepezil No Notes: Memori a 1-31 (Same as: l 03:00: Aricept) sennosides, No Notes: [place] to PRISON 1-31 (Same as: l 03:00: Senokot) atorvastati No Notes: [place] to n 1-31 Same as l 03:00: Lipitor donepezil No Notes: Memori a 1-31 (Same as: l 03:00: Aricept) sennosides, No Notes: [place] to PRISON 1-31 (Same as: l 03:00: Senokot) atorvastati No Notes: [place] to n 1-31 Same as l 03:00: Lipitor Tanvir 00 donepezil No Notes: Memori a 1-31 (Same as: l 03:00: Aricept) topiramate Yes 25 mg = 1 Me moria 25 mg oral 1-30 tab, PO, l tablet 22:52: Q12H, # 60 Eugenia nn 00 tab, 3 Refill(s), Pharmacy: [facility] STORE #[id number], 172.72, cm, 04/06/21 6:38:00 [employer], Height, 69.006, kg, 04/06/21 6:38:00 [employer]PER[employer]OR, Weight topiramate Yes 25 mg = 1 Me moria 25 mg oral 1-30 tab, PO, l tablet 22:52: Q12H, # 60 Eugenia nn 00 tab, 3 Refill(s), Pharmacy: [facility] STORE #[id number], 172.72, cm, 04/06/21 6:38:00 [employer]OR, Height, 69.006, kg, 04/06/21 6:38:00 [employer]PER[employer]OR, Weight topiramate 0 Yes 25 mg = 1 Me moria 25 mg oral 1-30 tab, PO, l tablet 22:52: Q12H, # 60 Eugenia nn 00 tab, 3 Refill(s), Pharmacy: [facility] #[id number], 172.72, cm, 04/06/21 6:38:00 [employer]OR, Height, 69.006, kg, 04/06/21 6:38:00 [employer]OR, Weight losartan 50 0 Yes 100 mg = 2 Memoria mg oral 1-30 tab, PO, l tablet 22:51: Daily, # [place] 00 30 tab, 3 Refill(s), Pharmacy: [facility] ST[facility] #[id number], 172.72, cm, 04/06/21 6:38:00 [employer], Height, 69.006, kg, 04/06/21 6:38:00 [employer], Weight Hydrochloro Yes 25 mg = 1 M emoria thiazide 25 1-30 tab, PO, l MG Oral 22:51: Daily, # Eric n Tablet 00 30 tab, 3 Refill(s), Pharmacy: [facility] ST[facility] #[id number], 172.72, cm, 04/06/21 6:38:00 [employer]OR, Height, 69.006, kg, 04/06/21 6:38:00 [employer]PER[employer]OR, Weight donepezil 5 0 Yes 5 mg = 1 Me moria mg oral 1-30 tab, PO, l tablet 22:51: Bedtime, # Eugenia nn 00 30 tab, 3 Refill(s), Pharmacy: [facility] #[id number], 172.72, cm, 04/06/21 6:38:00 [employer]OR, Height, 69.006, kg, 04/06/21 6:38:00 [employer]OR, Weight atorvastati 0 Yes 80 mg = 1 M emoria n 80 mg 1-30 tab, PO, l oral tablet 22:51: Bedtime, # [place] 00 30 tab, 3 Refill(s), Pharmacy: [facility] #[id number], 172.72, cm, 04/06/21 6:38:00 [employer]OR, Height, 69.006, kg, 04/06/21 6:38:00 [employer]OR, Weight losartan 50 2022-0 Yes 100 mg = 2 Memoria mg oral 1-30 tab, PO, l tablet 22:51: Daily, # [place] 00 30 tab, 3 Refill(s), Pharmacy: [facility] #[id number], 172.72, cm, 04/06/21 6:38:00 [employer]OR, Height, 69.006, kg, 04/06/21 6:38:00 [employer]OR, Weight Hydrochloro 0 Yes 25 mg = 1 M emoria thiazide 25 1-30 tab, PO, l MG Oral 22:51: Daily, # Eric n Tablet 00 30 tab, 3 Refill(s), Pharmacy: [facility] #[id number], 172.72, cm, 04/06/21 6:38:00 [employer]PER[employer]OR, Height, 69.006, kg, 04/06/21 6:38:00 [employer]PER[employer]OR, Weight donepezil 5 0 Yes 5 mg = 1 Me moria mg oral 1-30 tab, PO, l tablet 22:51: Bedtime, # Eugenia nn 30 tab, 3 Refill(s), Pharmacy: [facility] #[id number], 172.72, cm, 04/06/21 6:38:00 [employer]OR, Height, 69.006, kg, 04/06/21 6:38:00 [employer] SUPER[employer]OR, Weight atorvastati 2021-0 Yes 80 mg = 1 M emoria n 80 mg 1-30 tab, PO, l oral tablet 22:51: Bedtime, # [place] 00 30 tab, 3 Refill(s), Pharmacy: [facility] #[id number], 172.72, cm, 04/06/21 6:38:00 [employer] SU[employer]OR, Height, 69.006, kg, 04/06/21 6:38:00 [employer] SUPER[employer]OR, Weight losartan 50 2021-0 Yes 100 mg = 2 Memoria mg oral 1-30 tab, PO, l tablet 22:51: Daily, # [place] 00 30 tab, 3 Refill(s), Pharmacy: [facility] #[id number], 172.72, cm, 04/06/21 6:38:00 [employer]OR, Height, 69.006, kg, 04/06/21 6:38:00 [employer]PER[employer]OR, Weight Hydrochloro 2022-0 Yes 25 mg = 1 M emoria thiazide 25 1-30 tab, PO, l MG Oral 22:51: Daily, # Eric n Tablet 00 30 tab, 3 Refill(s), Pharmacy: [facility] #[id number], 172.72, cm, 04/06/21 6:38:00 [employer]OR, Height, 69.006, kg, 04/06/21 6:38:00 [employer] SUPER[employer]OR, Weight donepezil 5 0 Yes 5 mg = 1 Me moria mg oral 1-30 tab, PO, l tablet 22:51: Bedtime, # Eugenia nn 00 30 tab, 3 Refill(s), Pharmacy: [facility] #[id number], 172.72, cm, 04/06/21 6:38:00 [employer]OR, Height, 69.006, kg, 04/06/21 6:38:00 [employer]PER[employer]OR, Weight atorvastati Yes 80 mg = 1 M emoria n 80 mg 1-30 tab, PO, l oral tablet 22:51: Bedtime, # [place]vir 00 30 tab, 3 Refill(s), Pharmacy: [facility] #[id number], 172.72, cm, 04/06/21 6:38:00 [employer]OR, Height, 69.006, kg, 04/06/21 6:38:00 [employer]OR, Weight Aspirin 81 0 Yes 81 mg = 1 Me moria MG Enteric 1-30 tab, PO, l Coated 22:50: Daily, # [place] Tablet 00 30 tab, 3 Refill(s), Pharmacy: [facility] #[id number], 172.72, cm, 04/06/21 6:38:00 [employer]OR, Height, 69.006, kg, 04/06/21 6:38:00 [employer]OR, Weight Aspirin 81 2021-0 Yes 81 mg = 1 Me moria MG Enteric 1-30 tab, PO, l Coated 22:50: Daily, # Tanvir Tablet 00 30 tab, 3 Refill(s), Pharmacy: [facility] #[id number], 172.72, cm, 04/06/21 6:38:00 [employer]OR, Height, 69.006, kg, 04/06/21 6:38:00 [employer]PER[employer]OR, Weight Aspirin 81 2021-0 Yes 81 mg = 1 Me moria MG Enteric 1-30 tab, PO, l Coated 22:50: Daily, # [place]vir Tablet 00 30 tab, 3 Refill(s), Pharmacy: [facility] #[id number], 172.72, cm, 04/06/21 6:38:00 [employer]OR, Height, 69.006, kg, 04/06/21 6:38:00 [employer]OR, Weight Adenosine No Notes: For Me moria 1-30 diagnostic l 19:15: use only. (Same as: Adenoscan) MEDICATION WASTE Product Size: 60 mg Product Wasted: ___ mg Adenosine No Notes: For Me moria 1-30 diagnostic l 19:15: use only. (Same as: Adenoscan) MEDICATION WASTE Product Size: 60 mg Product Wasted: ___ mg Adenosine No Notes: For Me moria 1-30 diagnostic l 19:15: use only. (Same as: Adenoscan) MEDICATION WASTE Product Size: 60 mg Product Wasted: ___ mg Hydrochloro No Notes: [place] to thiazide 25 1-30 (Same as: l MG Oral 17:00: Hydrodiuri Herm radha Tablet 00 l) With food. Cozaar No Notes: Memoria 1-30 (Same as: l 17:00: Cozaar) Hydrochloro No Notes: [place] to thiazide 25 1-30 (Same as: l MG Oral 17:00: Hydrodiuri Herm radha Tablet 00 l) With food. Cozaar No Notes: Memoria 1-30 (Same as: l 17:00: Cozaar) Hydrochloro No Notes: [place] to thiazide 25 1-30 (Same as: l MG Oral 17:00: Hydrodiuri Herm radha Tablet 00 l) With food. Cozaar No Notes: Memoria 1-30 (Same as: l 17:00: Cozaar) Tylenol No Notes: Do Memor ia 1-30 not exceed l 16:00: 4 gm/day. (Same as: Tylenol) Tylenol No Notes: Do Memor ia 1-30 not exceed l 16:00: 4 gm/day. (Same as: Tylenol) Tylenol No Notes: Do Memor ia 1-30 not exceed l 16:00: 4 gm/day. (Same as: Tylenol) POLYETHYLEN No Notes: [place] to E GLYCOL 1-30 Dissolve l 3350 15:00: in 8 oz of [place] 00 water or juice. (Same as: Miralax) Nicotine No Notes: Memoria 1-30 (Same as: l 15:00: Habitrol) "Remove old patch before applicatio n of new patch" WASTE: F/P - P Waste Black; E - P Waste Black Hydrochloro No 1 tab, [place] to thiazide 25 1-30 Route: PO, l MG / 15:00: Drug Form: Tanvir Losartan 00 TAB, Potassium Dosing 100 MG Oral Weight Tablet 69.006, kg, Daily, Start date: 04/06/21 9:00:00 [employer], Duration: 30 day, Stop date: 05/05/21 9:00:00 [employer] topiramate No Notes: Memor ia 1-30 (Same As: l 15:00: Topamax) "Do Not Crush" Hazardous Drug Group 3:Reproduc tive risk Hazardous Drug -- Refer to safe handling procedure PPE Matrix POLYETHYLEN No Notes: [place] to E GLYCOL 1-30 Dissolve l 3350 15:00: in 8 oz of [place]vir 00 water or juice. (Same as: Miralax) Nicotine No Notes: Memoria 1-30 (Same as: l 15:00: Habitrol) "Remove old patch before applicatio n of new patch" WASTE: F/P - P Waste Black; E - P Waste Black Hydrochloro No 1 tab, [place] to thiazide 25 1-30 Route: PO, l MG / 15:00: Drug Form: Tanvir Losartan 00 TAB, Potassium Dosing 100 MG Oral Weight Tablet 69.006, kg, Daily, Start date: 04/06/21 9:00:00 [employer]OR, Duration: 30 day, Stop date: 05/05/21 9:00:00 [employer]OR topiramate No Notes: Memor ia 1-30 (Same As: l 15:00: Topamax) Tanvir 00 "Do Not Crush" Hazardous Drug Group 3:Reproduc tive risk Hazardous Drug -- Refer to safe handling procedure PPE Matrix POLYETHYLEN No Notes: [place] to E GLYCOL 1-30 Dissolve l 3350 15:00: in 8 oz of [place] 00 water or juice. (Same as: Miralax) Nicotine No Notes: Memoria 1-30 (Same as: l 15:00: Habitrol) [place] "Remove old patch before applicatio n of new patch" WASTE: F/P - P Waste Black; E - P Waste Black Hydrochloro No 1 tab, [place] to thiazide 25 -30 Route: PO, l MG / 15:00: Drug Form: Tanvir Losartan 00 TAB, Potassium Dosing 100 MG Oral Weight Tablet 69.006, kg, Daily, Start date: 04/06/21 9:00:00 [employer], Duration: 30 day, Stop date: 05/05/21 9:00:00 [employer]PER[employer]OR topiramate No Notes: Memor ia 1-30 (Same As: l 15:00: Topamax) [place] "Do Not Crush" Hazardous Drug Group 3:Reproduc tive risk Hazardous Drug -- Refer to safe handling procedure PPE Matrix Heparin - No 4,000 Memoria one time 1-30 unit, 4 l bolus for 14:06: mL, Route: He rmann ACS 00 IVP, Drug form: INJ, ONCE, Dosing Weight 69.006, kg, Priority: STAT, Start date: 04/06/21 8:06:00 [employer], Stop date: 04/06/21 8:06:00 [employer]PER[employer]OR, 0 Heparin 60 No Route: Memor ia unit/kg 1-30 IVP, PRN, l Bolus 14:06: 4,140.36 [place] (Heparin 00 unit, 4.14 Dosing mL, Drug Weight) form: INJ, PRN Heparin Protocol, Start date: 04/06/21 8:06:00 [employer]OR, Stop date: 05/06/21 8:05:00 [employer]PER[employer]OR, 30 day, 0 Heparin 30 No Route: Memor ia unit/kg 1-30 IVP, PRN, l Bolus 14:06: 2,100 [place] (Heparin 00 unit, 2.1 Dosing mL, Drug Weight) form: INJ, PRN Heparin Protocol, Start date: 04/06/21 8:06:00 [employer]OR, Stop date: 05/06/21 8:05:00 [employer]PER[employer]OR, 30 day, 0 heparin No Notes: Memoria additive 1-30 Total l 25,000 unit 14:06: Concentrat [place] [12 00 ion = 50 unit/kg/hr] unit/ ml + Premix Total Diluent volume = Sodium 500 ml Chloride Send Med 0.45% 500 Request 2 mL hours prior to next bag Albuterol No Notes: Memori a 0.833 MG/ML 1-30 (Same as: l / 14:06: Duoneb) [place] Ipratropium 00 [place] 0.167 MG/ML Inhalant Solution [DuoNeb] Heparin - No 4,000 Memoria one time 1-30 unit, 4 l bolus for 14:06: mL, Route: He rmann ACS 00 IVP, Drug form: INJ, ONCE, Dosing Weight 69.006, kg, Priority: STAT, Start date: 04/06/21 8:06:00 [employer], Stop date: 04/06/21 8:06:00 [employer] SUPERVISOR, 0 Heparin 60 No Route: Memor ia unit/kg 1-30 IVP, PRN, l Bolus 14:06: 4,140.36 [place] (Heparin 00 unit, 4.14 Dosing mL, Drug Weight) form: INJ, PRN Heparin Protocol, Start date: 04/06/21 8:06:00 [employer]PER[employer]OR, Stop date: 05/06/21 8:05:00 [employer]PER[employer]OR, 30 day, 0 Heparin 30 No Route: Memor ia unit/kg 1-30 IVP, PRN, l Bolus 14:06: 2,100 [place] (Heparin 00 unit, 2.1 Dosing mL, Drug Weight) form: INJ, PRN Heparin Protocol, Start date: 04/06/21 8:06:00 [employer]PER[employer]OR, Stop date: 05/06/21 8:05:00 [employer]PER[employer]OR, 30 day, 0 heparin No Notes: Memoria additive 1-30 Total l 25,000 unit 14:06: Concentrat [place] [12 00 ion = 50 unit/kg/hr] unit/ ml + Premix Total Diluent volume = Sodium 500 ml Chloride Send Med 0.45% 500 Request 2 mL hours prior to next bag Albuterol No Notes: Memori a 0.833 MG/ML 1-30 (Same as: l / 14:06: Duoneb) Tanvir Ipratropium 00 [place] 0.167 MG/ML Inhalant Solution [DuoNeb] Heparin - No 4,000 Memoria one time 1-30 unit, 4 l bolus for 14:06: mL, Route: He rmann ACS 00 IVP, Drug form: INJ, ONCE, Dosing Weight 69.006, kg, Priority: STAT, Start date: 04/06/21 8:06:00 [employer]PER[employer]OR, Stop date: 04/06/21 8:06:00 [employer] SUPERVISOR, 0 Heparin 60 No Route: Memor ia unit/kg 1-30 IVP, PRN, l Bolus 14:06: 4,140.36 [place] (Heparin 00 unit, 4.14 Dosing mL, Drug Weight) form: INJ, PRN Heparin Protocol, Start date: 04/06/21 8:06:00 [employer] SUPERVISOR, Stop date: 05/06/21 8:05:00 [employer] SUPERVISOR, 30 day, 0 Heparin 30 No Route: Memor ia unit/kg 1-30 IVP, PRN, l Bolus 14:06: 2,100 [place] (Heparin 00 unit, 2.1 Dosing mL, Drug Weight) form: INJ, PRN Heparin Protocol, Start date: 04/06/21 8:06:00 [employer] SUPER[employer]OR, Stop date: 05/06/21 8:05:00 [employer] SUPERVISOR, 30 day, 0 heparin No Notes: Memoria additive 1-30 Total l 25,000 unit 14:06: Concentrat [place] [12 00 ion = 50 unit/kg/hr] unit/ ml + Premix Total Diluent volume = Sodium 500 ml Chloride Send Med 0.45% 500 Request 2 mL hours prior to next bag Albuterol No Notes: Memori a 0.833 MG/ML 1-30 (Same as: l / 14:06: Duoneb) Ipratropium 00 [place] 0.167 MG/ML Inhalant Solution [DuoNeb] Dextrose No 12.5 gm, Memor ia 50% Syringe 04-06 25 mL, l (D50W) 12:56: Route: IVP, Drug Form: INJ, Dosing Weight 69.006, kg, PRN, PRN Blood Glucose Results, Start date: 04/06/21 6:56:00 [employer]OR, Duration: 30 day, Stop date: 05/06/21 6:55:00 [employer]PER[employer]OR, 0 Glucagon No 1 mg, Memoria 04-06 Route: IM, l 12:56: Drug form: PDR/INJ, PRN, Dosing Weight 69.006, kg, PRN Blood Glucose Results, Start date: 04/06/21 6:56:00 [employer]PER[employer]OR, Duration: 30 day, Stop date: 05/06/21 6:55:00 [employer] SUPER[employer]OR, 0 Potassium No Notes: Memori a Chloride -30 (Same as: l 12:56: K-Dur 20) "Do Not Crush" Give with food and full glass of water For patients unable to swallow tablet, dissolve in one half glass of water. Allow about 2 minutes for the tablets to disintegra te. Stir before giving to prepare slurry and administer . Please exclude Patient s with feeding tube less than 14 [place] (Dobhoff, J-tube etc) and pediatric and patients. potassium No Notes: Memori a phosphate-s - (Same as: l odium 12:56: Phos-NaK) phosphate 00 Each 1.5 250 mg-280 gm pkt has mg-160 mg 250mg oral powder phosphorou for s. Mix reconstitut w/2.5oz ion water and stir. potassium No Notes: Memori a phosphate 1-30 (Same as: l 12:56: K [place] 00 Phosphate) Infuse over 4 hour. Do not infuse phosphorou s concurrent ly in the same line as TPN or IVF that contains calcium. For double lumen central lines, phosphorou s may be infused in a separate lumen from TPN. sodium No Notes: Memoria phosphate 1-30 Infuse l 12:56: over 4 Tanvir 00 hour. Do not infuse phosphorou s concurrent ly in the same line as TPN or IVF that contains calcium. For double lumen central lines, phosphorou s may be infused in a separate lumen from TPN. Magnesium No Notes: Memori a Sulfate 04-06 WASTE: F/P l 12:56: - Sink; E - Municipal Trash Bin Magnesium No Notes: Memori a Oxide -30 (Same as: l 12:56: Mag-Ox [place] 00 400) Magnesium oxide [id number] g elemental magnesium Dose=____m g magnesium oxide (___mg elemental magnesium) Calcium No Notes: Memoria Gluconate 04-06 WASTE: F/P l 12:56: - Sink; E - Municipal Trash Bin Dextrose No 12.5 gm, Memor ia 50% Syringe 30 25 mL, l (D50W) 12:56: Route: IVP, Drug Form: INJ, Dosing Weight 69.006, kg, PRN, PRN Blood Glucose Results, Start date: 04/06/21 6:56:00 [employer]PER[employer]OR, Duration: 30 day, Stop date: 05/06/21 6:55:00 [employer] SUPERVISOR, 0 Glucagon 2021-0 No 1 mg, Memoria 04-06 Route: IM, l 12:56: Drug form: PDR/INJ, PRN, Dosing Weight 69.006, kg, PRN Blood Glucose Results, Start date: 04/06/21 6:56:00 [employer] SUPERVISOR, Duration: 30 day, Stop date: 05/06/21 6:55:00 [employer] SUPERVISOR, 0 Potassium 2021-0 No Notes: Memori a Chloride 1-30 (Same as: l 12:56: K-Dur 20) "Do Not Crush" Give with food and full glass of water For patients unable to swallow tablet, dissolve in one half glass of water. Allow about 2 minutes for the tablets to disintegra te. Stir before giving to prepare slurry and administer . Please exclude Patient s with feeding tube less than 14 [place] (Dobhoff, J-tube etc) and pediatric and patients. potassium 2021-0 No Notes: Memori a phosphate-s 1-30 (Same as: l odium 12:56: Phos-NaK) phosphate 00 Each 1.5 250 mg-280 gm pkt has mg-160 mg 250mg oral powder phosphorou for s. Mix reconstitut w/2.5oz ion water and stir. potassium No Notes: Memori a phosphate -30 (Same as: l 12:56: K Phosphate) Infuse over 4 hour. Do not infuse phosphorou s concurrent ly in the same line as TPN or IVF that contains calcium. For double lumen central lines, phosphorou s may be infused in a separate lumen from TPN. sodium No Notes: Memoria phosphate -30 Infuse l 12:56: over 4 [place] 00 hour. Do not infuse phosphorou s concurrent ly in the same line as TPN or IVF that contains calcium. For double lumen central lines, phosphorou s may be infused in a separate lumen from TPN. Magnesium No Notes: Memori a Sulfate 04-06 WASTE: F/P l 12:56: - Sink; E - Municipal Trash Bin Magnesium No Notes: Memori a Oxide 30 (Same as: l 12:56: Mag-Ox 400) Magnesium oxide [id number] g elemental magnesium Dose=____m g magnesium oxide (___mg elemental magnesium) Calcium No Notes: Memoria Gluconate 04-06 WASTE: F/P l 12:56: - Sink; E - [facility] Trash Bin Dextrose No 12.5 gm, Memor ia 50% Syringe 04-06 25 mL, l ([id number]) 12:56: Route: IVP, Drug Form: INJ, Dosing Weight 69.006, kg, PRN, PRN Blood Glucose Results, Start date: 04/06/21 6:56:00 [employer], Duration: 30 day, Stop date: 05/06/21 6:55:00 [employer], 0 Glucagon No 1 mg, Memoria 04-06 Route: IM, l 12:56: Drug form: PDR/INJ, PRN, Dosing Weight 69.006, kg, PRN Blood Glucose Results, Start date: 04/06/21 6:56:00 [employer], Duration: 30 day, Stop date: 05/06/21 6:55:00 [employer], 0 Potassium No Notes: Memori a Chloride 1-30 (Same as: l 12:56: K-Dur 20) Tanvir 00 "Do Not Crush" Give with food and full glass of water For patients unable to swallow tablet, dissolve in one half glass of water. Allow about 2 minutes for the tablets to disintegra te. Stir before giving to prepare slurry and administer . Please exclude Patient s with feeding tube less than 14 [place] (Dobhoff, J-tube etc) and pediatric and patients. potassium No Notes: Memori a phosphate-s 1-30 (Same as: l odium 12:56: Phos-NaK) Tanvir phosphate 00 Each 1.5 250 mg-280 gm pkt has mg-160 mg 250mg oral powder phosphorou for s. Mix reconstitut w/2.5oz ion water and stir. potassium No Notes: Memori a phosphate 1-30 (Same as: l 12:56: K [place] Phosphate) Infuse over 4 hour. Do not infuse phosphorou s concurrent ly in the same line as TPN or IVF that contains calcium. For double lumen central lines, phosphorou s may be infused in a separate lumen from TPN. sodium No Notes: [facility] phosphate 1-30 Infuse l 12:56: over 4 Tanvir 00 hour. Do not infuse phosphorou s concurrent ly in the same line as TPN or IVF that contains calcium. For double lumen central lines, phosphorou s may be infused in a separate lumen from TPN. Magnesium No Notes: Memori a Sulfate -30 WASTE: F/P l 12:56: - Sink; E [place] 00 - Municipal Trash Bin Magnesium No Notes: Memori a Oxide 1-30 (Same as: l 12:56: Mag-Ox [place] 400) Magnesium oxide [id number] g elemental magnesium Dose=____m g magnesium oxide (___mg elemental magnesium) Calcium No Notes: [facility] Gluconate 1-30 WASTE: F/P l 12:56: - Sink; E [place] 00 - Municipal Trash Bin donepezil 5 Yes = 1 tab, Me moria mg oral 5-11 PO, l tablet 15:21: Bedtime, # Eugenia nn 00 90 tab, 1 Refill(s), [id number], 175.26, cm, 01/16/20 10:50:00 [employer], Height, 66.818, kg, 07/16/20 10:00:00 CDT, Weight donepezil 5 Yes = 1 tab, Me moria mg oral 5-11 PO, l tablet 15:21: Bedtime, # Eugenia nn 00 90 tab, 1 Refill(s), Pharmacy: [facility] #[id number], 175.26, cm, 01/16/20 10:50:00 [employer], Height, 66.818, kg, 07/16/20 10:00:00 CDT, Weight donepezil Yes = 1 tab, Me moria mg oral 5-11 PO, l tablet 15:21: Bedtime, # Eugneia nn 00 90 tab, 1 Refill(s), [id number], 175.26, cm, 01/16/20 10:50:00 [employer], Height, 66.818, kg, 07/16/20 10:00:00 CDT, Weight predniSONE 2019-0 Yes 20mg Take 20 mg U nivers (DELTASONE) 7-15 by mouth ity of 20 mg 17:52: daily. [place] tablet Medical Branch levofloxaci 2020-0 Yes 500mg Take 500 U nivers n 7-15 mg by ity of (LEVAQUIN) 17:52: mouth [place] 750 mg 45 every 24 Medical tablet (twenty-fo Branch ur) hours. METOPROLOL 2020-0 Yes 25mg Take 25 mg U nivers TARTRATE 7-15 by mouth 2 ity o f ORAL 17:52: (two) [place] 45 times Medical daily. Branch Omeprazole 2020-0 Yes Take by Univ ers Magnesium 7-15 mouth. ity of 20 mg 17:52: [place] capsule 45 Medical Branch ipratropium 2020-0 Yes .5mg Inhale 0.5 Univers (ATROVENT) 7-15 mg. ity of 0.02 % 17:52: [place] nebulizer 45 Medical solution Branch albuterol 2020-0 [...] mouth ity of mg tablet 17:52: daily. [place] [address] Medical Branch predniSONE 2020-0 Yes 20mg Take 20 mg U nivers (DELTASONE) 7-15 by mouth ity of 20 mg 17:52: daily. [place] tablet 45 Medical Branch levofloxaci 2020-0 Yes 500mg Take 500 U nivers n 7-15 mg by ity of (LEVAQUIN) 17:52: mouth [place] 750 mg 45 every 24 Medical tablet (twenty-fo Branch ur) hours. METOPROLOL 2020-0 Yes 25mg Take 25 mg U nivers TARTRATE 7-15 by mouth 2 ity o f ORAL 17:52: (two) [place] 45 times Medical daily. Branch Omeprazole 2019-[address] [facility] ers Magnesium 7-15 mouth. ity of 20 mg 17:52: [place] capsule 45 Medical Branch ipratropium 2020-0 Yes .5mg Inhale 0.5 Univers (ATROVENT) 7-15 mg. ity of 0.02 % 17:52: [place] nebulizer 45 Medical solution Branch albuterol 2020-0 [...] [place] 160-4.5 45 times Medical mcg/actuati daily. [place] on inhaler clopidogrel 2020-0 Yes 75mg Take 75 mg Univers (PLAVIX) 75 7-15 by mouth ity of mg tablet 17:52: daily. [address] water for 2020-0 Yes PRN, Univers irrigation 7-15 Starting ity o f irrigation 17:05: Wed [place] solution 09/20/19 at [facility] al 1205, [place] Until Discontinu ed, Routine, Intra-op sodium 2020-0 Yes PRN, Univers chloride 7-15 Starting ity of (NS) 17:05: Wed [place] injection 09/20/19 at [facility] 1205, [place] Until Discontinu ed, Routine, Intra-op neomycin-po 2020-0 Yes PRN, Univer s lymyxin-dex 7-15 Starting ity of amethasone 17:04: Wed [place] (MAXITROL) 09/20/19 at [facility] ical 3.5 [facility] mg/g-10,000 Until unit/g-0.1 Discontinu % ed, ophthalmic Routine, ointment Intra-op methylene 2020-0 Yes PRN, Univers blue 1 % 7-15 Starting ity of (10 mg/mL) 17:03: Wed [place] injection 09/20/19 at [facility] 1203, [place] Until Discontinu ed, Routine, Intra-op Hyaluronida 2020-0 Yes PRN, Univer s se, Human 7-15 Starting ity of Recomb. 17:03: Wed [place] (HYLENEX) 09/20/19 at [facility] 1203, [place] Until Discontinu ed, Routine, Intra-op gentamicin 2020-0 Yes PRN, Univers injection 7-15 Starting ity of 17:03: [facility] 09/20/19 at [place] [id number], [place] Until Discontinu ed, LORAINE, Intra-op eye block 2020-0 Yes PRN, Univers syringe 11 7-15 Starting ity o f mL 17:02: [facility] 09/20/19 at [place] [id number], [place] Until Discontinu ed, Intra-op EPINEPHrine 2020-0 Yes PRN, Univer s 1:1,000 (1 7-15 Starting ity o f mg/mL) 17:02: [facility] (ADRENALIN) 09/20/19 at [place] dical injection 1202, [place] Until Discontinu ed, Routine, Intra-op DUOVISC 2020-0 Yes PRN, Univers (DUOVISC 7-15 Starting ity of VISCO 17:02: Wed [place] ELASTIC) 3 00 09/20/19 at [facility] ica %-4 %(0.5 1202, Branch mL) 1 % Until (0.55 mL) Discontinu intraocular ed, injection Routine, Intra-op dexamethaso 2020-0 Yes PRN, Univer s ne 7-15 Starting ity of (DECADRON 17:02: Wed [place] PHOSPHATE) 00 09/20/19 at [facility] ica injection 1202, [place] Until Discontinu ed, Routine, Intra-op ceFAZolin 2020-0 Yes PRN, Univers (ANCEF) 7 Starting ity of injection 17:01: Wed [place] 00 09/20/19 at [facility] 1201, Branch Until Discontinu ed, LORAINE, Intra-op carbachoL 2020-0 Yes PRN, Univers (MIOSTAT) 09-19 Starting ity of 0.01 % 17:01: Wed [place] intraocular 00 09/20/19 at [place] dical injection 1201, [place] Until Discontinu ed, Routine, Intra-op balanced 2020-0 Yes PRN, Univers salt irrig 09-19 Starting ity o f soln comb1 17:00: Wed [place] (BSS PLUS) 09/20/19 at [facility] ophthalmic 1200, Branch solution Until 500 mL bag Discontinu ed, Routine, Intra-op propofol IV 2020-0 2020- No ONCE INTRA Univers infusion 09-19 PROCEDURE, ity of 16:50: 17:22 Starting [place] 00 :11 [facility] 09/20/19 at Branch 1150, Until Wed09/20/19 at 1222, Routine, Intra-op remifentani 2020-0 2020- No ONCE INTRA Univers l (ULTIVA) 09-19 PROCEDURE, it y of injection 16:46: 17:22 Starting [place] 00 :11 [facility] 09/20/19 at Branch 1146, Until Wed09/20/19 at 1222, Routine, Intra-op lactated 2020-0 2020- No CONTINUOUS Un sarahy ringers IV 09-1915 PRN, ity of infusion 16:44: 17:22 Starting [place] 00 :11 [facility] 09/20/19 at Branch 1144, Until Wed09/20/19 at 1222, Routine, Intra-op mydriatic 2020-0 2020- No .5mL 0.5 mL, Univ ers #5 7-15 07-15 Left Eye, ity of ophthalmic 14:30: 14:26 ONCE, 1 [place] solution 00 :00 dose, Wed Medica l 0.5 mL 09/20/19 at Branch syringe 0930, Routine lactated 2020-0 2020- No 1000mL at 20 Unive rs ringers IV 715 07-15 mL/hr, ity of infusion 14:30: 14:26 1,000 mL, Zac as 1,000 mL 00 :00 IV Medical Infusion, Branch ONCE, 1 dose, 09/20/19 at 0930, Routine, DSU Pre-op predniSONE 2020-0 Yes 20mg Take 20 mg U nivers (DELTASONE) 7-15 by mouth ity of 20 mg 12:52: daily. [place] tablet 45 Medical Branch levofloxaci 2020-0 Yes 500mg Take 500 U nivers n 7-15 mg by ity of (LEVAQUIN) 12:52: mouth [place] 750 mg 45 every 24 Medical tablet (twenty- Branch ur) hours. METOPROLOL 2020-0 Yes 25mg Take 25 mg U nivers TARTRATE 7-15 by mouth 2 ity o f ORAL 12:52: (two) [place] 45 times Medical daily. Branch ipratropium 2020-0 Yes .5mg Inhale 0.5 Univers (ATROVENT) 7-15 mg. ity of 0.02 % 12:52: [place] nebulizer 45 Medical solution Branch budesonide- 2020-0 Yes 2{puff} Inhale 2 Univers formoterol 7-15 Puffs 2 ity of (SYMBICORT) 12:52: (two) [place] 160-4.5 45 times Medical mcg/actuati daily. Branch on inhaler predniSONE 2020-0 Yes 20mg Take 20 mg U nivers (DELTASONE) 7-15 by mouth ity of 20 mg 12:52: daily. [place] tablet 45 Medical Branch levofloxaci 2020-0 Yes [...] 7-15 mg. ity of 0.02 % 12:52: [place] nebulizer 45 Medical solution Branch budesonide- 2020-0 Yes 2{puff} Inhale 2 Univers formoterol 7-15 Puffs 2 ity of (SYMBICORT) 12:52: (two) [place] 160-4.5 45 times Medical mcg/actuati daily. Branch on inhaler predniSONE 2020-0 Yes 20mg Take 20 mg U nivers (DELTASONE) 7-15 by mouth ity of 20 mg 12:52: daily. [place] tablet 45 Medical Branch levofloxaci 2020-0 Yes [...] 7-15 mg. ity of 0.02 % 12:52: [place] nebulizer 45 Medical solution Branch budesonide- 2020-0 [...] 2020-0 Yes Take by Univ ers Magnesium 7-13 mouth. ity of 20 mg 17:38: [place] capsule 42 Medical Branch ipratropium 2020-0 Yes .5mg Inhale 0.5 Univers (ATROVENT) 7-13 mg. ity of 0.02 % 17:38: [place] nebulizer Medical solution Branch albuterol 2020-0 Yes 2.5mg Inhale 2.5 U nivers (PROVENTIL) 7-13 mg every 4 it y of 2.5 mg /3 17:38: (four) [place] mL (0.083 42 hours as Medica l %) needed for Branch nebulizer Wheezing solution or Shortness of Breath. budesonide- 2020-0 Yes 2{puff} Inhale 2 Univers formoterol 7-13 Puffs 2 ity of (SYMBICORT) 17:38: (two) [place] 160-4.5 42 times Medical mcg/actuati daily. Branch on inhaler clopidogrel 2020-0 Yes 75mg Take 75 mg Univers (PLAVIX) 75 7-13 by mouth ity of mg tablet 17:38: daily. [place] [address] Medical Branch predniSONE 2020-0 Yes 20mg Take 20 mg U nivers (DELTASONE) 7-13 by mouth ity of 20 mg 17:38: daily. [place] tablet Medical Branch levofloxaci 2020-0 Yes 500mg Take 500 U nivers n 7-13 mg by ity of (LEVAQUIN) 17:38: mouth [place] 750 mg 42 every 24 Medical tablet (twenty-fo Branch ur) hours. METOPROLOL 2020-0 Yes 25mg Take 25 mg U nivers TARTRATE 7-13 by mouth 2 ity o f ORAL 17:38: (two) [place] 42 times Medical daily. Branch Omeprazole 2020-[address] [facility] ers Magnesium 7-13 mouth. ity of 20 mg 17:38: [place] capsule Medical Branch ipratropium 2020-0 Yes .5mg Inhale 0.5 Univers (ATROVENT) 7-13 mg. ity of 0.02 % 17:38: [place] nebulizer Medical solution Branch albuterol 2020-0 Yes [...] mouth ity of mg tablet 17:38: daily. [address] Branch predniSONE 2020-0 Yes 20mg Take 20 mg U nivers (DELTASONE) 7-13 by mouth ity of 20 mg 17:38: daily. [place] tablet Medical Branch predniSONE 2020-0 Yes 20mg Take 20 mg U nivers (DELTASONE) 7-01 by mouth ity of 20 mg 15:58: daily. [place] tablet [address] [place] [address] Branch levofloxaci 2020-0 Yes 500mg Take 500 U nivers n 7- mg by ity of (LEVAQUIN) 15:58: mouth [place] 750 mg 06 every 24 Medical tablet (twenty-fo Branch ur) hours. METOPROLOL 2020-0 Yes 25mg Take 25 mg U nivers TARTRATE 7-01 by mouth 2 ity o f ORAL 15:58: (two) [place] 06 times Medical daily. Branch Omeprazole 2020-[address] [facility] ers Magnesium 7- mouth. ity of 20 mg 15:58: [place] capsule [address] [place] [address] Branch ipratropium 2020-0 Yes .5mg Inhale 0.5 Univers (ATROVENT) 7-01 mg. ity of 0.02 % 15:58: [place] nebulizer Medical solution Branch albuterol 2020-0 Yes 2.5mg Inhale 2.5 U nivers (PROVENTIL) 7-01 mg every 4 it y of 2.5 [...] 75mg Take 75 mg Univers (PLAVIX) 75 7-01 by mouth ity of mg tablet 15:58: daily. [place] 06 Medical Branch lactated 2020-0 Yes 1000mL at 75 [facility] s ringers IV 7-01 mL/hr, ity of [...] ed, Routine, Intra-op neomycin-po 2020-0 Yes PRN, [facility] s lymyxin-dex 09-05 Starting ity of amethasone 14:55: Wed09/06/19 [place] (MAXITROL) 00 at 0955, Medic al 3.5 Until Branch mg/g-10,000 Discontinu unit/g-0.1 ed, % Routine, ophthalmic Intra-op ointment Hyaluronida 2020-0 Yes PRN, [facility] se, Human 09-05 Starting ity of Recomb. [...] ne 09-05 Starting ity of (DECADRON 14:53: 09/06/19 [place] PHOSPHATE[place] 00 at 0953, Medic al injection Until Branch Discontinu ed, Routine, Intra-op ceFAZolin 2020-0 Yes PRN, Univers (ANCEF) 09-05 Starting ity of injection 14:53: 09/06/19 [place] 00 at 0953, Medical Until Branch Discontinu ed, LORAINE, Intra-op carbachoL 2020-0 Yes PRN, Univers (MIOSTAT) 09-05 Starting ity of 0.01 % 14:50: 09/06/19 [place] intraocular 00 at 0950, Medi waqar injection Until Branch Discontinu ed, Routine, Intra-op balanced 2020-0 Yes PRN, Univers salt irrig 09-05 Starting ity o f soln comb1 14:50: 09/06/19 [place] (BSS PLUS) 00 at 0950, Medic al ophthalmic Until [facility] solution Discontinu 500 mL bag ed, Routine, Intra-op trypan blue 2020-0 Yes PRN, Univer s (VISION 09-05 Starting ity of BLUE) 0.06 14:50: 09/06/19 [place] % syringe 00 at 0950, Medica l Until Branch Discontinu ed, Routine, Intra-op eye block 2020-0 Yes PRN, Univers syringe 11 09-05 Starting ity o f mL 14:34: 09/06/19 [place] 00 at 0934, Medical Until Branch Discontinu ed, Intra-op mydriatic 2019-0 2020- No .5mL 0.5 mL, Univ ers #5 09-05 Right Eye, ity of ophthalmic 12:30: 12:47 ONCE, 1 [place] solution 00 :00 dose, Wed Medica l 0.5 mL 09/06/19 at Branch syringe 0730, Routine lactated 2020-0 2020- No 1000mL at 20 Unive rs ringers IV 09-05 mL/hr, ity of infusion 12:30: 12:39 1,000 mL, Zac as 1,000 mL 00 :00 IV Medical Infusion, [facility] ONCE, 1 dose, 09/06/19 at 0730, Routine, DSU Pre-op predniSONE 2020-0 Yes 20mg Take 20 mg U nivers (DELTASONE) 6-29 by mouth ity of 20 mg 16:52: daily. [place] tablet 26 Medical Branch predniSONE 2020-0 Yes 20mg Take [...] daily. Branch Omeprazole 2020-[address] [facility] ers Magnesium 6-29 mouth. ity of 20 [...] mouth ity of mg tablet 16:52: daily. [place] 06 Medical Branch levofloxaci 2020-0 Yes 500mg Take 500 U nivers n 6-29 mg by ity of (LEVAQUIN) 16:52: mouth [place] 750 mg 06 every 24 Medical tablet (twenty-fo Branch ur) hours. METOPROLOL 2020-0 Yes 25mg Take 25 mg U nivers TARTRATE 6-29 by mouth 2 ity o f ORAL 16:52: (two) [place] 06 times Medical daily. Branch Omeprazole 2020-[address] [facility] ers Magnesium 6-29 mouth. ity of 20 [...] mouth ity of mg tablet 16:52: daily. [place] 06 Medical Branch topiramate 2020-0 Yes 50 mg = 2 Me moria 25 MG Oral 4-14 tab, PO, l Tablet 16:16: BID, # 360 Eugenia nn [Topamax] 00 tab, 3 Refill(s), Pharmacy: [facility] #[id number] topiramate 2020-0 Yes 50 mg = 2 Me moria 25 MG Oral 4-14 tab, PO, l Tablet 16:16: BID, # 360 [place] nn [Topamax] 00 tab, 3 Refill(s), Pharmacy: [id number] topiramate 2020-0 Yes 50 mg = 2 Me moria 25 MG Oral 4-14 tab, PO, l Tablet 16:16: BID, # 360 Eugenia nn [Topamax] 00 tab, 3 Refill(s), Pharmacy: [facility] #[id number] topiramate 2020-0 No 25 mg = 1 Me moria 25 MG Oral 2-28 tab, PO, l Tablet 15:24: BID, # 180 [place] nn [Topamax] 00 tab, 3 Refill(s), Pharmacy: [facility] #[id number] topiramate 2020-0 No 25 mg = 1 Me moria 25 MG Oral 2-28 tab, PO, l Tablet 15:24: BID, # 180 [place] nn [Topamax] 00 tab, 3 Refill(s), Pharmacy: [facility] #[id number] topiramate 2020-0 No 25 mg = 1 Me moria 25 MG Oral 2-28 tab, PO, l Tablet 15:24: BID, # 180 [place] nn [Topamax] 00 tab, 3 Refill(s), Pharmacy: [facility] #[id number] Donepezil 2020-0 Yes 5 mg = 1 [place] to hydrochlori 2-13 tab, PO, l de 5 MG 18:26: Bedtime, # Herm radha Oral Tablet 00 30 tab, 3 [Aricept] Refill(s), Pharmacy: [facility] #[id number] topiramate 2020-0 Yes 25 mg = 1 Me moria 25 MG Oral 2-13 tab, PO, l Tablet 18:26: BID, # 60 Eric n [Topamax] 00 tab, 3 Refill(s), Pharmacy: [facility] #[id number] Donepezil 2020-0 Yes 5 mg = 1 [place] to hydrochlori 2-13 tab, PO, l de 5 MG 18:26: Bedtime, # [place] radha Oral Tablet 00 30 tab, 3 [Aricept] Refill(s), Pharmacy: [facility] #[id number] topiramate 2020-0 Yes 25 mg = 1 Me moria 25 MG Oral 2-13 tab, PO, l Tablet 18:26: BID, # 60 Eric n [Topamax] 00 tab, 3 Refill(s), Pharmacy: [id number] Donepezil 2020-0 Yes 5 mg = 1 [place] to hydrochlori 2-13 tab, PO, l de 5 MG 18:26: Bedtime, # [place] radha Oral Tablet 00 30 tab, 3 [Aricept] Refill(s), Pharmacy: [facility][id number] topiramate 2020-0 Yes 25 mg = 1 Me moria 25 MG Oral 2-13 tab, PO, l Tablet 18:26: BID, # 60 Eric n [Topamax] 00 tab, 3 Refill(s), Pharmacy: [facility] #[id number] tamsulosin 2020-0 Yes 0.4 mg, [place] to 1-16 PO, Daily, l 16:30: 0 [place] 00 Refill(s) gabapentin 2020-0 Yes 300 mg, [place] to 1-16 PO, Daily, l 16:30: 0 [place] 00 Refill(s) Sertraline 2020-0 Yes 50 mg, PO, M emoria 1-16 Daily, 0 l 16:30: Refill(s) [place] 00 Losartan 2020-0 No PO, Daily, Mem oria 1-16 0 l 16:30: Refill(s) Hydrochloro 2020-0 Yes 1 tab, PO, Memoria thiazide 25 1-16 Daily, 0 l MG / 16:30: Refill(s) Potassium 100 MG Oral Tablet tamsulosin 2019-0 Yes 0.4 mg, [place] to 1-16 PO, Daily, l 16:30: 0 Refill(s) gabapentin 2020-0 Yes 300 mg, [place] to 1-16 PO, Daily, l 16:30: 0 Refill(s) Sertraline 2019-0 Yes 50 mg, PO, M emoria 1-16 Daily, 0 l 16:30: Refill(s) Losartan 2019-0 No PO, Daily, Mem oria 1-16 0 l 16:30: Refill(s) Hydrochloro 2019-0 Yes 1 tab, PO, Memoria thiazide 25 1-16 Daily, 0 l MG / 16:30: Refill(s) Potassium 100 MG Oral Tablet tamsulosin 0 Yes 0.4 mg, [place] to 1-16 PO, Daily, l 16:30: 0 Refill(s) gabapentin 2020-0 Yes 300 mg, [place] to 1-16 PO, Daily, l 16:30: 0 Refill(s) Sertraline 2019-0 Yes 50 mg, PO, M emoria 1-16 Daily, 0 l 16:30: Refill(s) Losartan 2019-0 No PO, Daily, Mem oria 1-16 0 l 16:30: Refill(s) Hydrochloro 2019-0 Yes 1 tab, PO, Memoria thiazide 25 1-16 Daily, 0 l MG / 16:30: Refill(s) Potassium 100 MG Oral Tablet albuterol Yes 2.5mg Q.25D Take 2.[address] (PROVENTIL) 2-03 mg [facility] 2.[facility] mg/0.5 05:10: nebulizati M edical mL Nebu 39 on 4 Center nebulizer (four) solution times daily. ipratropium Yes 500ug Take [address] (ATROVENT) 2-03 mcg by [facility] 0.02 % 05:10: nebulizati Medic al nebulizer 39 on every 6 Cent er solution (six) hours. metoprolol 2019-0 Yes 25mg Q.5D Take [address] (LOPRESSOR) 2-03 by mouth 2 Manuela kes 25 MG 05:10: (two) Medical tablet 39 times Center daily. omeprazole 2019-0 Yes 20mg QD Take [address] (PRILOSEC) 2-03 by mouth [facility] 20 MG 05:10: daily. Medical capsule 39 Center budesonide- 20190 Yes 2{puff} Q.5D Inhale [address] [facility] [address] formoterol 2-03 puffs by [facility] (SYMBICORT) 05:10: mouth via M edical 160-4.5 39 inhaler 2 Center mcg/actuati (two) on inhaler times daily. acetaminoph 2019-0 Yes 1{tbl} Take [address] en-codeine 2-03 tablet by Xavier s (TYLENOL 05:10: mouth Medical #3) 300-30 39 every 4 Center mg per (four) tablet hours as needed for Pain. albuterol 2019-0 Yes 2.5mg Q.25D Take 2.[address] (PROVENTIL) 2-03 mg by [facility] 2.5 mg/0.5 05:10: nebulizati M edical mL Nebu 39 on 4 Center nebulizer (four) solution times daily. ipratropium 2019-0 Yes 500ug Take [address] (ATROVENT) 2-03 mcg by [facility] 0.02 % 05:10: nebulizati Medic al nebulizer 39 on every 6 Cent er solution (six) hours. metoprolol 2019-0 Yes 25mg Q.5D Take [address] (LOPRESSOR) 2-03 by mouth 2 Manuela kes 25 MG 05:10: (two) Medical tablet 39 times Center daily. omeprazole 2019-0 Yes 20mg QD Take [address] (PRILOSEC) 2-03 by mouth [facility] 20 MG 05:10: daily. Medical capsule 39 Center budesonide- 2019-0 Yes 2{puff} Q.5D Inhale [address] formoterol 2-03 puffs by [facility] (SYMBICORT) 05:10: mouth via M edical 160-4.5 39 inhaler 2 Center mcg/actuati (two) on inhaler times daily. acetaminoph Yes 1{tbl} Take [address] en-codeine 2-03 tablet by Xavier gutiérrez (TYLENOL 05:10: mouth Medical #3) 300-30 39 every 4 Center mg per (four) tablet hours as needed for Pain. metoprolol 2017-03 Yes 25 mg = 1 [...] Notes: Memoria 0-25 porcine l 05:00: heparin [place] heparin 2017-03 No Notes: Memoria 0-25 porcine l 05:00: heparin [place] 00 heparin 2017-03 No Notes: Memoria 0-25 porcine l 05:00: heparin [place] heparin 2017-03 No Notes: Memoria 0-25 porcine l 05:00: heparin [place] heparin 2017-03 No Notes: Memoria 0-25 porcine l 05:00: heparin [place] 00 Calcium 2017-03 No 1,000 mL, Memor ia Chloride 0-24 1,000 l 0.0014 21:42: ml/hr, [place] MEQ/ML / 00 Infuse Potassium Over: 1 Chloride hr, Route: 0.004 IV, 1,000, MEQ/ML / Drug form: Sodium INJ, ONCE, Chloride Priority: 0.103 STAT, MEQ/ML / Dosing Sodium Weight Lactate 69.659 kg, 0.028 Start MEQ/ML date: Injectable 12/29/17 Solution 16:42:00 CDT, Stop date: 12/29/17 16:42:00 CDT Calcium 2017-03 No 1,000 mL, Memor ia Chloride 0-24 1,000 l 0.0014 21:42: ml/hr, [place] MEQ/ML / 00 Infuse Potassium Over: 1 Chloride hr, Route: 0.004 IV, 1,000, MEQ/ML / Drug form: Sodium INJ, ONCE, Chloride Priority: 0.103 STAT, MEQ/ML / Dosing Sodium Weight Lactate 69.659 kg, 0.028 Start MEQ/ML date: Injectable 12/29/17 Solution 16:42:00 CDT, Stop date: 12/29/17 16:42:00 CDT Calcium 2017-03 No 1,000 mL, Memor ia Chloride 0-24 1,000 l 0.0014 21:42: ml/hr, Tanvir MEQ/ML / 00 Infuse Potassium Over: 1 Chloride hr, Route: 0.004 IV, 1,000, MEQ/ML / Drug form: Sodium INJ, ONCE, Chloride Priority: 0.103 STAT, MEQ/ML / Dosing Sodium Weight Lactate 69.659 kg, 0.028 Start MEQ/ML date: Injectable 12/29/17 Solution 16:42:00 CDT, Stop date: 12/29/17 16:42:00 CDT Calcium 2017-03 No 1,000 mL, Memor ia Chloride 0-24 1,000 l 0.0014 21:42: ml/hr, Tanvir MEQ/ML / 00 Infuse Potassium Over: 1 Chloride hr, Route: 0.004 IV, 1,000, MEQ/ML / Drug form: Sodium INJ, ONCE, Chloride Priority: 0.103 STAT, MEQ/ML / Dosing Sodium Weight Lactate 69.659 kg, 0.028 Start MEQ/ML date: Injectable 12/29/17 Solution 16:42:00 CDT, Stop date: 12/29/17 16:42:00 CDT Calcium 2017-03 No 1,000 mL, Memor ia Chloride 0-24 1,000 l 0.0014 21:42: ml/hr, [place] MEQ/ML / 00 Infuse Potassium Over: 1 Chloride hr, Route: 0.004 IV, 1,000, MEQ/ML / Drug form: Sodium INJ, ONCE, Chloride Priority: 0.103 STAT, MEQ/ML / Dosing Sodium Weight Lactate 69.659 kg, 0.028 Start MEQ/ML date: Injectable 12/29/17 Solution 16:42:00 CDT, Stop date: 12/29/17 16:42:00 CDT Calcium 2017-03 No 1,000 mL, Memor ia Chloride 0-24 1,000 l 0.0014 21:42: ml/hr, [place] MEQ/ML / 00 Infuse Potassium Over: 1 Chloride hr, Route: 0.004 IV, 1,000, MEQ/ML / Drug form: Sodium INJ, ONCE, Chloride Priority: 0.103 STAT, MEQ/ML / Dosing Sodium Weight Lactate 69.659 kg, 0.028 Start MEQ/ML date: Injectable 12/29/17 Solution 16:42:00 CDT, Stop date: 12/29/17 16:42:00 CDT Docusate 2017-03 No Notes: Memoria 0-24 (Same as: l 14:00: Colace) [place] 00 (Do Not Crush) Eliquis 2017-03 No Notes: Memoria 0-24 Same as: l 14:00: Eliquis pantoprazol 2017-03 No Notes: [place] to e 0-24 Tablet l 14:00: should not 00 be chewed or crushed. (Same as: Protonix) Losartan 2017-03 No Notes: Memoria 0-24 (Same as: l 14:00: Cozaar) [place] 00 Hydrochloro 2017-03 No Notes: [place] to thiazide 0-24 (Same as: l 14:00: Hydrodiuri [place] 00 l) With food. Plavix 2017-03 No Notes: Memoria 0-24 (Same As: l 14:00: Plavix) [place] 00 Buspirone 2017-03 No Notes: Memori a 0-24 (Same As: l 14:00: BuSpar) [place] 00 Aspirin 2017-03 No Notes: Do Memor ia 0-24 not crush l 14:00: or chew. [place] 00 (Same As: Ecotrin) atorvastati 2017-03 No Notes: [place] to n 0-24 (Same as: l 14:00: Lipitor) [place] 00 metoprolol 2017-03 No Notes: Memor ia tartrate 0-24 (Same as: l 14:00: Lopressor) [place] 00 Docusate 2017-03 No Notes: Memoria 0-24 (Same as: l 14:00: Colace) [place] 00 (Do Not Crush) Eliquis 2017-03 No Notes: Memoria 0-24 Same as: l 14:00: Eliquis pantoprazol 2017-03 No Notes: [place] to e 0-24 Tablet l 14:00: should not be chewed or crushed. (Same as: Protonix) Losartan 2017-03 No Notes: Memoria 0-24 (Same as: l 14:00: Cozaar) Hydrochloro 2017-03 No Notes: [place] to thiazide 0-24 (Same as: l 14:00: Hydrodiuri [place] 00 l) With food. Plavix 2017-03 No Notes: Memoria 0-24 (Same As: l 14:00: Plavix) Buspirone 2017-03 No Notes: Memori a 0-24 (Same As: l 14:00: BuSpar) [place] 00 Aspirin 2017-03 No Notes: Do Memor ia 0-24 not crush l 14:00: or chew. [place] 00 (Same As: Ecotrin) atorvastati 2017-03 No Notes: [place] to n 0-24 (Same as: l 14:00: Lipitor) [place] 00 metoprolol 2017-03 No Notes: [facility] tartrate 0-24 (Same as: l 14:00: Lopressor) [place] 00 Docusate 2017-03 No Notes: Memoria 0-24 (Same as: l 14:00: Colace) Tanvir 00 (Do Not Crush) Eliquis 2017-03 No Notes: [facility] 0-24 Same as: l 14:00: Eliquis [place] 00 pantoprazol 2017-03 No Notes: [place] to e 0-24 Tablet l 14:00: should not [place] 00 be chewed or crushed. (Same as: Protonix) Losartan 2017-03 No Notes: [facility] 0-24 (Same as: l 14:00: Cozaar) [place] Hydrochloro 2017-03 No Notes: [place] to thiazide 0-24 (Same as: l 14:00: Hydrodiuri [place] 00 l) With food. Plavix 2017-03 No Notes: [facility] 0-24 (Same As: l 14:00: Plavix) Buspirone 2017-03 No Notes: Memori a 0-24 (Same As: l 14:00: BuSpar) [place] 00 Aspirin 2017-03 No Notes: Do Memor ia 0-24 not crush l 14:00: or chew. Tanvir 00 (Same As: Ecotrin) atorvastati 2017-03 No Notes: [place] to n 0-24 (Same as: l 14:00: Lipitor) [place] 00 metoprolol 2017-03 No Notes: Memor ia tartrate 0-24 (Same as: l 14:00: Lopressor) [place] 00 Docusate 2017-03 No Notes: [facility] 0-24 (Same as: l 14:00: Colace) [place] (Do Not Crush) Eliquis 2017-03 No Notes: [facility] 0-24 Same as: l 14:00: Eliquis [place] 00 pantoprazol 2017-03 No Notes: [place] to e 0-24 Tablet l 14:00: should not [place] 00 be chewed or crushed. (Same as: Protonix) Losartan 2017-03 No Notes: [facility] 0-24 (Same as: l 14:00: Cozaar) [place] Hydrochloro 2017-03 No Notes: [place] to thiazide 0-24 (Same as: l 14:00: Hydrodiuri [place] 00 l) With food. Plavix 2017-03 No Notes: [facility] 0-24 (Same As: l 14:00: Plavix) [place] 00 Buspirone 2017-03 No Notes: [facility] a 0-24 (Same As: l 14:00: BuSpar) [place] 00 Aspirin 2017-03 No Notes: Do [facility]or ia 0-24 not crush l 14:00: or chew. Tanvir 00 (Same As: Ecotrin) atorvastati 2017-03 No Notes: [place] to n 0-24 (Same as: l 14:00: Lipitor) metoprolol 2017-03 No Notes: [facility] tartrate 0-24 (Same as: l 14:00: Lopressor) [place] 00 Docusate 2017-03 No Notes: [facility] 0-24 (Same as: l 14:00: Colace) (Do Not Crush) Eliquis 2017-03 No Notes: [facility] 0-24 Same as: l 14:00: Eliquis pantoprazol 2017-03 No Notes: [place] to e 0-24 Tablet l 14:00: should not be chewed or crushed. (Same as: Protonix) Losartan 2017-03 No Notes: [facility] 0-24 (Same as: l 14:00: Cozaar) Hydrochloro 2017-03 No Notes: [place] to thiazide 0-24 (Same as: l 14:00: Hydrodiuri Tanvir 00 l) With food. Plavix 2017-03 No [...] tartrate 0-24 (Same as: l 14:00: Lopressor) Docusate 2017-03 No Notes: [facility] 0-24 (Same as: l 14:00: Colace) Tanvir 00 (Do Not Crush) Eliquis 2017-03 No Notes: [facility] 0-24 Same as: l 14:00: Eliquis [place] 00 pantoprazol 2017-03 No Notes: [place] to e 0-24 Tablet l 14:00: should not be chewed or crushed. (Same as: Protonix) Losartan 2017-03 No Notes: [facility] 0-24 (Same as: l 14:00: Cozaar) Hydrochloro 2017-03 No Notes: [place] to thiazide 0-24 (Same as: l 14:00: Hydrodiuri l) With food. Plavix 2017-03 No Notes: [...] 25 0-24 Daily l MG / 02:24: Losartan 00 Potassium 100 MG Oral Tablet Hydrochloro 2017-03 No 1 tab, PO, [facility] thiazide 25 0-24 Daily l MG / 02:24: Losartan 00 Potassium 100 MG Oral Tablet Hydrochloro 2017-03 No 1 tab, PO, [facility] thiazide 25 0-24 Daily l MG / 02:24: Losartan Potassium 100 MG Oral Tablet Hydrochloro 2017-03 No 1 tab, PO, [facility] thiazide 25 0-24 Daily l MG / 02:24: Losartan 00 Potassium 100 MG Oral Tablet Hydrochloro 2017-03 No 1 tab, PO, [facility] thiazide 25 0-24 Daily l MG / 02:24: Losartan Potassium 100 MG Oral Tablet Hydrochloro 2017-03 No 1 tab, PO, [facility] thiazide 25 0-24 Daily l MG / 02:24: Losartan 00 Potassium 100 MG Oral Tablet atorvastati 2017-03 Yes 80 mg = 1 M emoria n 80 mg 0-24 tab, PO, l oral tablet 02:20: Bedtime Her stewart atorvastati 2017-03 Yes 80 mg = 1 M emoria n 80 mg 0-24 tab, PO, l oral tablet 02:20: Bedtime Her stewart atorvastati 2017-03 Yes 80 mg = 1 M emoria n 80 mg 0-24 tab, PO, l oral tablet 02:20: Bedtime Her stewart atorvastati 2017-03 Yes 80 mg = 1 M emoria n 80 mg 0-24 tab, PO, l oral tablet 02:20: Bedtime Her stewart atorvastati 2017-03 Yes 80 mg = 1 M emoria n 80 mg 0-24 tab, PO, l oral tablet 02:20: Bedtime Her stewart atorvastati 2017-03 Yes 80 mg = 1 M emoria n 80 mg 0-24 tab, PO, l oral tablet 02:20: Bedtime Her [facility] clopidogrel 2017-03 Yes 75 mg = 1 M emoria 75 MG Oral 0-23 tab, PO, l Tablet 23:17: Daily, 0 [place]vir [Plavix] Refill(s) pantoprazol 2017-03 Yes 40 mg = 1 M emoria e 40 mg 0-23 tab, PO, l oral 23:17: Daily, 0 Tanvir enteric Refill(s) coated tablet Aspirin 2017-03 Yes 81 mg, PO, [place] to 0-23 Daily, 0 l 23:17: Refill(s) busPIRone 2017-03 Yes 15 mg = 1 Mem oria 15 mg oral 0-23 tab, PO, l tablet 23:17: BID, 0 [place]vir 00 Refill(s) atorvastati 2017-03 No 40 mg = 1 M emoria n 40 mg 0-23 tab, PO, l oral tablet 23:17: Daily, 0 He rm Refill(s) Hydrochloro 2017-03 No 25 mg, PO, [facility] thiazide 0-23 Daily, 0 l 23:17: Refill(s) [place] 00 losartan 2017-03 No 100 mg = 1 Mem oria 100 mg oral 0-23 tab, PO, l tablet 23:17: Daily, 0 [place] 00 Refill(s) clopidogrel 2017-03 Yes 75 mg = 1 M emoria 75 MG Oral 0-23 tab, PO, l Tablet 23:17: Daily, 0 [place]vir [Plavix] 00 Refill(s) pantoprazol 2017-03 Yes 40 mg = 1 M emoria e 40 mg 0-23 tab, PO, l oral 23:17: Daily, 0 Tanvir enteric 00 Refill(s) coated tablet Aspirin 2017-03 Yes 81 mg, PO, [place] to 0-23 Daily, 0 l 23:17: Refill(s) [place] 00 busPIRone 2017-03 Yes 15 mg = 1 Mem oria 15 mg oral 0-23 tab, PO, l tablet 23:17: BID, 0 [place]vir 00 Refill(s) atorvastati 2017-03 No 40 mg = 1 M emoria n 40 mg 0-23 tab, PO, l oral tablet 23:17: Daily, 0 [place] 00 Refill(s) Hydrochloro 2017-03 No 25 mg, PO, [facility] thiazide 0-23 Daily, 0 l 23:17: Refill(s) [place] 00 losartan 2017-03 No 100 mg = 1 Mem oria 100 mg oral 0-23 tab, PO, l tablet 23:17: Daily, 0 [place] 00 Refill(s) clopidogrel 2017-03 Yes 75 mg = 1 M emoria 75 MG Oral 0-23 tab, PO, l Tablet 23:17: Daily, 0 [place] [Plavix] 00 Refill(s) pantoprazol 2017-03 Yes 40 mg = 1 M emoria e 40 mg 0-23 tab, PO, l oral 23:17: Daily, 0 [place] enteric 00 Refill(s) coated tablet Aspirin 2017-03 Yes 81 mg, PO, [place] to 0-23 Daily, 0 l 23:17: Refill(s) [place] 00 busPIRone 2017-03 Yes 15 mg = 1 Mem oria 15 mg oral 0-23 tab, PO, l tablet 23:17: BID, 0 [place] 00 Refill(s) atorvastati 2017-03 No 40 mg = 1 M emoria n 40 mg 0-23 tab, PO, l oral tablet 23:17: Daily, 0 [place] 00 Refill(s) Hydrochloro 2017-03 No 25 mg, PO, [facility] thiazide 0-23 Daily, 0 l 23:17: Refill(s) [place] 00 losartan 2017-03 No 100 mg = 1 Mem oria 100 mg oral 0-23 tab, PO, l tablet 23:17: Daily, 0 [place] 00 Refill(s) clopidogrel 2017-03 Yes 75 mg = 1 M emoria 75 MG Oral 0-23 tab, PO, l Tablet 23:17: Daily, 0 [place] [Plavix] 00 Refill(s) pantoprazol 2017-03 Yes 40 mg = 1 M emoria e 40 mg 0-23 tab, PO, l oral 23:17: Daily, 0 Tanvir enteric 00 Refill(s) coated tablet Aspirin 2017-03 Yes 81 mg, PO, [place] to 0-23 Daily, 0 l 23:17: Refill(s) [place] 00 busPIRone 2017-03 Yes 15 mg = 1 Mem oria 15 mg oral 0-23 tab, PO, l tablet 23:17: BID, 0 [place] 00 Refill(s) atorvastati 2017-03 No 40 mg = 1 M emoria n 40 mg 0-23 tab, PO, l oral tablet 23:17: Daily, 0 [place] 00 Refill(s) Hydrochloro 2017-03 No 25 mg, PO, [facility] thiazide 0-23 Daily, 0 l 23:17: Refill(s) [place] 00 losartan 2017-03 No 100 mg = 1 Mem o[facility] 100 mg oral 0-23 tab, PO, l tablet 23:17: Daily, 0 [place] 00 Refill(s) clopidogrel 2017-03 Yes 75 mg = 1 M emoria 75 MG Oral 0-23 tab, PO, l Tablet 23:17: Daily, 0 [place] [Plavix] 00 Refill(s) pantoprazol 2017-03 Yes 40 mg = 1 M emoria e 40 mg 0-23 tab, PO, l oral 23:17: Daily, 0 [place] enteric 00 Refill(s) coated tablet Aspirin 2017-03 Yes 81 mg, PO, [place] to 0-23 Daily, 0 l 23:17: Refill(s) [place] 00 busPIRone 2017-03 Yes 15 mg = 1 Mem oria 15 mg oral 0-23 tab, PO, l tablet 23:17: BID, 0 [place] 00 Refill(s) atorvastati 2017-03 No 40 mg = 1 M emoria n 40 mg 0-23 tab, PO, l oral tablet 23:17: Daily, 0 [place] 00 Refill(s) Hydrochloro 2017-03 No 25 mg, PO, [facility] thiazide 0-23 Daily, 0 l 23:17: Refill(s) losartan 2017-03 No 100 mg = 1 Mem [facility] 100 mg oral 0-23 tab, PO, l tablet 23:17: Daily, 0 [place] 00 Refill(s) Aspirin 2017-03 Yes 81 mg, PO, [place] to 0-23 Daily, 0 l 23:17: Refill(s) [place] 00 busPIRone 2017-03 Yes 15 mg = 1 Mem o[facility] 15 mg oral 0-23 tab, PO, l tablet 23:17: BID, 0 [place] 00 Refill(s) atorvastati 2017-03 No 40 mg = 1 M emoria n 40 mg 0-23 tab, PO, l oral tablet 23:17: Daily, 0 [place] 00 Refill(s) Hydrochloro 2017-03 No 25 mg, PO, [facility] thiazide 0-23 Daily, 0 l 23:17: Refill(s) [place] 00 losartan 2017-03 No 100 mg = 1 Mem o[facility] 100 mg oral 0-23 tab, PO, l tablet 23:17: Daily, 0 [place] 00 Refill(s) clopidogrel 2017-03 Yes 75 mg = 1 M emoria 75 MG Oral 0-23 tab, PO, l Tablet 23:17: Daily, 0 [place] [Plavix] 00 Refill(s) pantoprazol 2017-03 Yes 40 mg = 1 M emoria e 40 mg 0-23 tab, PO, l oral 23:17: Daily, 0 [place] enteric 00 Refill(s) coated tablet normal 2017-03 No 1,000 mL, Memori a saline 0.9% 0-23 Rate: 100 l IV 1,000 mL 23:15: ml/hr, Herm Infuse over: 10 hr, Route: IV, Dosing Weight 68.182 kg, Total Volume: 1,000, Priority: STAT, Start date: 12/28/17 18:15:00 CDT, Duration: 1 doses or times, Stop date: 12/29/17 4:14:00 CDT, 1.83, m2 normal 2017- No 1,000 mL, Memori a saline 0.9% 0-23 Rate: 100 l IV 1,000 mL 23:15: ml/hr, Herm radha 00 Infuse over: 10 hr, Route: IV, Dosing Weight 68.182 kg, Total Volume: 1,000, Priority: STAT, Start date: 12/28/17 18:15:00 CDT, Duration: 1 doses or times, Stop date: 12/29/17 4:14:00 CDT, 1.83, m2 normal 2018 No 1,000 mL, Memori a saline 0.9% 0-23 Rate: 100 l IV 1,000 mL 23:15: ml/hr, Herm radha 00 Infuse over: 10 hr, Route: IV, Dosing Weight 68.182 kg, Total Volume: 1,000, Priority: STAT, Start date: 12/28/17 18:15:00 CDT, Duration: 1 doses or times, Stop date: 12/29/17 4:14:00 CDT, 1.83, m2 normal 2017-03 No 1,000 mL, Memori a saline 0.9% 0-23 Rate: 100 l IV 1,000 mL 23:15: ml/hr, Herm radha 00 Infuse over: 10 hr, Route: IV, Dosing Weight 68.182 kg, Total Volume: 1,000, Priority: STAT, Start date: 12/28/17 18:15:00 CDT, Duration: 1 doses or times, Stop date: 12/29/17 4:14:00 CDT, 1.83, m2 normal 2017-03 No 1,000 mL, Memori a saline 0.9% 0-23 Rate: 100 l IV 1,000 mL 23:15: ml/hr, Herm radha 00 Infuse over: 10 hr, Route: IV, Dosing Weight 68.182 kg, Total Volume: 1,000, Priority: STAT, Start date: 12/28/17 18:15:00 CDT, Duration: 1 doses or times, Stop date: 12/29/17 4:14:00 CDT, 1.83, m2 normal 2017-03 No 1,000 mL, Memori a saline 0.9% 0-23 Rate: 100 l IV 1,000 mL 23:15: ml/hr, Herm radha 00 Infuse over: 10 hr, Route: IV, Dosing Weight 68.182 kg, Total Volume: 1,000, Priority: STAT, Start date: 12/28/17 18:15:00 CDT, Duration: 1 doses or times, Stop date: 12/29/17 4:14:00 CDT, 1.83, m2 iodixanol 2017-03 No 100 mL, Memor ia 0-23 Route: l 20:44: IVP, Drug [place]vir 00 Form: SOLN, Dosing Weight 68.182, kg, ONCALL, STAT, Start date: 12/28/17 15:44:00 CDT, Duration: 1 doses or times, Dose = 2.2ml/kg, Max dose = 100ml -- "To be infused by Radiology Staff ONLY" iodixanol 2017-03 No 100 mL, Memor ia 0-23 Route: l 20:44: IVP, Drug [place] 00 Form: SOLN, Dosing Weight 68.182, kg, ONCALL, STAT, Start date: 12/28/17 15:44:00 CDT, Duration: 1 doses or times, Dose = 2.2ml/kg, Max dose = 100ml -- "To be infused by Radiology Staff ONLY" iodixanol 2017-03 No 100 mL, Memor ia 0-23 Route: l 20:44: IVP, Drug [place] 00 Form: SOLN, Dosing Weight 68.182, kg, ONCALL, STAT, Start date: 12/28/17 15:44:00 CDT, Duration: 1 doses or times, Dose = 2.2ml/kg, Max dose = 100ml -- "To be infused by Radiology Staff ONLY" iodixanol 2017-03 No 100 mL, Memor ia 0-23 Route: l 20:44: IVP, Drug [place] 00 Form: SOLN, Dosing Weight 68.182, kg, ONCALL, STAT, Start date: 12/28/17 15:44:00 CDT, Duration: 1 doses or times, Dose = 2.2ml/kg, Max dose = 100ml -- "To be infused by Radiology Staff ONLY" iodixanol 2017-03 No 100 mL, Memor ia 0-23 Route: l 20:44: IVP, Drug [place] 00 Form: SOLN, Dosing Weight 68.182, kg, ONCALL, STAT, Start date: 12/28/17 15:44:00 CDT, Duration: 1 doses or times, Dose = 2.2ml/kg, Max dose = 100ml -- "To be infused by Radiology Staff ONLY" iodixanol 2018-1 No 100 mL, Memor ia 0-23 Route: l 20:44: IVP, Drug Form: SOLN, Dosing Weight 68.182, kg, ONCALL, STAT, Start date: 12/28/17 15:44:00 CDT, Duration: 1 doses or times, Dose = 2.2ml/kg, Max dose = 100ml -- "To be infused by Radiology Staff ONLY" Morphine 2017- No 4 mg, Memoria 0-23 Route: l 18:44: IVP, ONCE, Dosing Weight 68.182, kg, Priority: STAT, Start date: 12/28/17 13:44:00 CDT, Stop date: 12/28/17 13:44:00 CDT Isolyte S 2017- No 500 mL, Memor ia PH-7.4 0-23 Route: IV, l (Bolus) IV 18:44: ONCE, Eric n Dosing Weight 68.182 kg, Start date: 12/28/17 13:44:00 CDT, Stop date: 12/28/17 13:44:00 CDT Morphine 2017- No 4 mg, Memoria 0-23 Route: l 18:44: IVP, ONCE, Dosing Weight 68.182, kg, Priority: STAT, Start date: 12/28/17 13:44:00 CDT, Stop date: 12/28/17 13:44:00 CDT Isolyte S 2018-1 No 500 mL, Memor ia PH-7.4 0-23 Route: IV, l (Bolus) IV 18:44: ONCE, Eric n Dosing Weight 68.182 kg, Start date: 12/28/17 13:44:00 CDT, Stop date: 12/28/17 13:44:00 CDT Morphine 2017- No 4 mg, Memoria 0-23 Route: l 18:44: IVP, ONCE, Dosing Weight 68.182, kg, Priority: STAT, Start date: 12/28/17 13:44:00 CDT, Stop date: 12/28/17 13:44:00 CDT Isolyte S 2018-1 No 500 mL, Memor ia PH-7.4 0-23 Route: IV, l (Bolus) IV 18:44: ONCE, Eric n Dosing Weight 68.182 kg, Start date: 12/28/17 13:44:00 CDT, Stop date: 12/28/17 13:44:00 CDT Morphine 2018-1 No 4 mg, Memoria 0-23 Route: l 18:44: IVP, ONCE, Dosing Weight 68.182, kg, Priority: STAT, Start date: 12/28/17 13:44:00 CDT, Stop date: 12/28/17 13:44:00 CDT Isolyte S 2018-1 No 500 mL, Memor ia PH-7.4 0-23 Route: IV, l (Bolus) IV 18:44: ONCE, Eric n Dosing Weight 68.182 kg, Start date: 12/28/17 13:44:00 CDT, Stop date: 12/28/17 13:44:00 CDT Morphine 2017-1 No 4 mg, Memoria 0-23 Route: l 18:44: IVP, ONCE, Dosing Weight 68.182, kg, Priority: STAT, Start date: 12/28/17 13:44:00 CDT, Stop date: 12/28/17 13:44:00 CDT Isolyte S 2018-1 No 500 mL, Memor ia PH-7.4 0-23 Route: IV, l (Bolus) IV 18:44: ONCE, Eric n Dosing Weight 68.182 kg, Start date: 12/28/17 13:44:00 CDT, Stop date: 12/28/17 13:44:00 CDT Morphine 2017-1 No 4 mg, Memoria 0-23 Route: l 18:44: IVP, ONCE, Dosing Weight 68.182, kg, Priority: STAT, Start date: 12/28/17 13:44:00 CDT, Stop date: 12/28/17 13:44:00 CDT Isolyte S 2018-1 No 500 mL, Memor ia PH-7.4 0-23 Route: IV, l (Bolus) IV 18:44: ONCE, Eric n 00 Dosing Weight 68.182 kg, Start date: 12/28/17 13:44:00 CDT, Stop date: 12/28/17 13:44:00 CDT Metoclopram 2018-1 No 10 mg, [place] to [facility] 0-[facility] Route: l 18:38: IVP, Drug [place] 00 form: INJ, ONCE, Dosing Weight 68.182, kg, Priority: STAT, Start date: 12/28/17 13:38:00 CDT, Stop date: 12/28/17 13:38:00 CDT Metoclopram 2018-1 No 10 mg, [place] to [facility] 0-23 Route: l 18:38: IVP, Drug [place] 00 form: INJ, ONCE, Dosing Weight 68.182, kg, Priority: STAT, Start date: 12/28/17 13:38:00 CDT, Stop date: 12/28/17 13:38:00 CDT Metoclopram 2018-1 No 10 mg, [place] to [facility] 0-23 Route: l 18:38: IVP, Drug [place] 00 form: INJ, ONCE, Dosing Weight 68.182, kg, Priority: STAT, Start date: 12/28/17 13:38:00 CDT, Stop date: 12/28/17 13:38:00 CDT Metoclopram 2018-1 No 10 mg, [place] to [facility] 0-23 Route: l 18:38: IVP, Drug [place] 00 form: INJ, ONCE, Dosing Weight 68.182, kg, Priority: STAT, Start date: 12/28/17 13:38:00 CDT, Stop date: 12/28/17 13:38:00 CDT Metoclopram 2018-1 No 10 mg, [place] to [facility] 0-23 Route: l 18:38: IVP, Drug [place] 00 form: INJ, ONCE, Dosing Weight 68.182, kg, Priority: STAT, Start date: 12/28/17 13:38:00 CDT, Stop date: 12/28/17 13:38:00 CDT Metoclopram 2017-1 No 10 mg, [place] to [facility] 0-23 Route: l 18:38: IVP, Drug [place] 00 form: INJ, ONCE, Dosing Weight 68.182, kg, Priority: STAT, Start date: 12/28/17 13:38:00 CDT, Stop date: 12/28/17 13:38:00 CDT Saline 2017-03 No Notes: Memoria Flush 0.9% 0-23 (Same as: l 18:09: BD [place] 00 Posiflush) Saline 2017-03 No Notes: [facility] Flush 0.9% 0-23 (Same as: l 18:09: BD [place] 00 Posiflush) Saline 2017-03 No Notes: Memoria Flush 0.9% 0-23 (Same as: l 18:09: BD [place] 00 Posiflush) Saline 2017-03 No Notes: [facility] Flush 0.9% 0-23 (Same as: l 18:09: BD [place] 00 Posiflush) Saline 2017-03 No Notes: [facility] Flush 0.9% 0-23 (Same as: l 18:09: BD [place] 00 Posiflush) Saline 2017-03 No Notes: [facility] Flush 0.9% 0-23 (Same as: l 18:09: BD [place] 00 Posiflush) Saline 2017-03 No Notes: Memoria Flush 0.9% 0-23 (Same as: l 18:06: BD [place] 00 Posiflush) Saline 2017-03 No Notes: Memoria Flush 0.9% 0-23 (Same as: l 18:06: BD [place] 00 Posiflush) Saline 2017-03 No Notes: Memoria Flush 0.9% 0-23 (Same as: l 18:06: BD [place] 00 Posiflush) Saline 2017-03 No Notes: Memoria Flush 0.9% 0-23 (Same as: l 18:06: BD [place] 00 Posiflush) Saline 2017-03 No Notes: Memoria Flush 0.9% 0-23 (Same as: l 18:06: BD [place] 00 Posiflush) Saline 2017-03 No Notes: Memoria Flush 0.9% 0-23 (Same as: l 18:06: BD [place] 00 Posiflush) ondansetron Yes 4mg Take 1 Univ ers (ZOFRAN, 6-30 tablet by Sunita 00:00: mouth [place] DE,) 4 mg 00 [...] mouth ity of mg tablet 20:19: daily. [place] 56 [facility] ipratropium 2016-0 Yes .5mg Inhale 0.5 Univers (ATROVENT) 5-30 mg. ity of 0.02 % 20:19: [place] nebulizer 16 Medical solution Branch albuterol 2016-0 Yes 2.5mg Inhale 2.5 U nivers (PROVENTIL) 5-30 mg every 4 it y of 2.5 mg /3 20:19: (four) [place] mL (0.083 16 hours as Medica l %) needed for Branch nebulizer Wheezing solution or Shortness of Breath. budesonide- 2016-0 Yes 2{puff} Inhale 2 Univers formoterol 5-30 Puffs 2 ity of (SYMBICORT) 20:19: (two) [place] 160-4.5 16 times Medical mcg/actuati daily. Branch on inhaler ipratropium 0 Yes .5mg Inhale 0.5 Univers (ATROVENT) 5-30 mg. ity of 0.02 % 20:19: [place] nebulizer 16 Medical solution Branch ipratropium 0 Yes .5mg Inhale 0.5 Univers (ATROVENT) 5-30 mg. ity of 0.02 % 20:19: [place] nebulizer 16 Medical solution Branch levofloxaci 0 Yes 500mg Take 500 U nivers n 5-30 mg by ity of (LEVAQUIN) 20:19: mouth [place] 750 mg 16 every 24 Medical tablet (twenty-fo Branch ur) hours. METOPROLOL Yes 25mg Take 25 mg U nivers TARTRATE 5-30 by mouth 2 ity o f ORAL 20:19: (two) [place] 16 times Medical daily. Branch Omeprazole Yes Take by [facility] ers Magnesium 5-30 mouth. ity of 20 mg 20:19: [place] capsule 16 Medical Branch predniSONE 0 Yes 20mg Take 20 mg U nivers (DELTASONE) 5-30 by mouth ity of 20 mg 20:19: daily. [place] tablet 15 Medical Branch albuterol Yes 2.5mg Inhale 3 [...] solution one extra every 6 hours. predniSONE 0 Yes 1 PO BID x U nivers (DELTASONE) 5-30 4 days ity of 20 mg 00:00: [place] tablet 00 Medical Branch albuterol 2015-0 Yes 2.5mg Inhale 3 Uni vers (PROVENTIL) [...] solution one extra every 6 hours. albuterol 2015-0 Yes 2.5mg Inhale 3 Uni vers (PROVENTIL) 5-30 mL every 4 it y of 2.5 mg /3 00:00: (four) [place] mL (0.083 00 hours. May Medi waqar %) also Branch nebulizer nebulize solution one extra every 6 hours. predniSONE 2016- Yes 1 PO BID x U nivers (DELTASONE) 5-30 4 days ity of 20 mg 00:00: [place] tablet 00 Medical Branch albuterol 2015-0 Yes 2.5mg Inhale 3 Uni vers (PROVENTIL) 5-30 mL every 4 it y of 2.5 mg /3 00:00: (four) [place] mL (0.083 00 hours. May Medi waqar %) also Branch nebulizer nebulize solution one extra every 6 hours. albuterol 0 Yes 2.5mg Inhale 3 Uni vers (PROVENTIL) 5-30 mL every 4 it y of 2.5 mg /3 00:00: (four) [place] mL (0.083 00 hours. May Medi waqar %) also Branch nebulizer nebulize solution one extra every 6 hours. albuterol 0 Yes 2.5mg Inhale 3 Uni vers (PROVENTIL) 5-30 mL every 4 it y of 2.5 mg /3 00:00: (four) [place] mL (0.083 00 hours. May Medi waqar %) also Branch nebulizer nebulize solution one extra every 6 hours. albuterol 0 Yes 2.5mg Inhale 3 Uni vers (PROVENTIL) 5-30 mL every 4 it y of 2.5 mg /3 00:00: (four) [place] mL (0.083 00 hours. May Medi waqar %) also Branch nebulizer nebulize solution one extra every 6 hours. albuterol 0 Yes 2.5mg Inhale 3 Uni [...] 00:00: 00:00 [place] tablet 00 :00 Medical Branch Immunizations Ordered Immunization Filled Immunization Date Status Commen ts Source Name Name pneumococcal 2007-10-21 [facility] 23-valent vaccine 13:48:00 [place] pneumococcal 2007-10-21 [facility]pleted [facility] 23-valent vaccine 13:48:00 [place] pneumococcal 2007-10-21 Completed [facility] 23-valent vaccine 13:48:00 [place] pneumococcal 2007-10-21 Completed [facility] 23-valent vaccine 13:48:00 [place] pneumococcal 2007-10-21 Completed [facility] 23-valent vaccine 13:48:00 [place] pneumococcal 2007-10-21 Completed [facility] 23-valent vaccine 13:48:00 [place] Vital Signs Vital Name Observation Time Observation Value Comments Source Heart rate 2022-03-13 17:24:00 70 /min [facility] Respiratory rate 2022-03-13 17:24:00 18 /min [facility] Oxygen saturation in 2022-03-13 17:24:00 96 /min [facility] Arterial blood by [facility] Pulse oximetry Branch Systolic blood 2022-03-13 14:08:00 135 mm[Hg] [facility]iver [facility] of [facility] Diastolic blood 2022-03-13 14:08:00 58 mm[Hg] Unive rsity of [facility] Body temperature 2022-03-13 14:08:00 36.44 Azul [facility] Body height 2022-03-10 22:15:00 172.7 cm [facility] Body weight 2022-03-10 22:15:00 64.411 kg [facility] BMI 2022-03-10 22:15:00 21.59 kg/m2 Universi ty [facility] Systolic blood 2022-01-06 15:35:00 109 mm[Hg] Univer sity of pressure [facility] Diastolic blood 2022-01-06 15:35:00 73 mm[Hg] Unive rsity of pressure [facility] Heart rate 2022-01-06 15:35:00 103 /min [facility] Body height 2022-01-06 15:35:00 172.7 cm [facility] Body weight 2022-01-06 15:35:00 64.411 kg [facility] BMI 2022-01-06 15:35:00 21.59 kg/m2 Universi ty [facility] Oxygen saturation in 2022-01-06 15:35:00 99 /min University of Arterial blood by [facility] Pulse oximetry Branch Systolic blood 2021-12-11 21:12:00 114 mm[Hg] Univer sity of pressure [place] [facility] Diastolic blood 2021-12-11 21:12:00 52 mm[Hg] [facility] Heart rate 2021-12-11 21:12:00 68 /min [facility] Body temperature 2021-12-11 21:12:00 35.67 Azul [facility] Respiratory rate 2021-12-11 21:12:00 18 /min [facility] Oxygen saturation in 2021-12-11 21:12:00 100 /min [facility] Arterial blood by [facility] Pulse oximetry Branch Body weight 2021-12-11 09:42:00 66.996 kg [facility] BMI 2021-12-11 09:42:00 22.46 kg/m2 [facility] Body height 2021-12-09 22:37:00 172.7 cm [facility] Systolic blood 2021-11-26 16:33:00 140 mm[Hg] [facility] Diastolic blood 2021-11-26 16:33:00 75 mm[Hg] [facility] Heart rate 2021-11-26 16:33:00 69 /min [facility] Body temperature 2021-11-26 16:33:00 36.22 [facility]ul [facility] Respiratory rate 2021-11-26 16:33:00 18 /min [facility] Oxygen saturation in 2021-11-26 16:33:00 97 /min [facility] Arterial blood by [facility] Pulse oximetry Branch Body height 2021-11-24 21:35:00 172.7 cm [facility] Body weight 2021-11-24 21:35:00 63.458 kg [facility] BMI 2021-11-24 21:35:00 21.27 kg/m2 [facility] Systolic blood 2021-11-23 11:15:00 163 mm[Hg] [facility] Diastolic blood 2021-11-23 11:15:00 67 mm[Hg] [facility] Heart rate 2021-11-23 11:15:00 68 /min [facility] Respiratory rate 2021-11-23 11:15:00 20 /min [facility] Oxygen saturation in 2021-11-23 11:15:00 98 /min [facility] Arterial blood by [facility]ar Pulse oximetry Branch Body temperature 2021-11-23 06:12:00 36.17 Azul [facility] of [facility] Body weight 2021-11-23 06:12:00 68.04 kg [facility] BMI 2021-11-23 06:12:00 22.15 kg/m2 [facility] Systolic blood 2021-11-08 20:37:00 156 mm[Hg] [facility] Diastolic blood 2021-11-08 20:37:00 77 mm[Hg] [facility] Heart rate 2021-11-08 20:37:00 68 /min [facility] Respiratory rate 2021-11-08 20:37:00 16 /min [facility] Oxygen saturation in 2021-11-08 20:37:00 97 /min [facility] Arterial blood by [facility] Pulse oximetry Branch Body temperature 2021-11-08 17:23:00 36.44 Azul [facility] Body height 2021-11-08 17:23:00 175.3 cm [facility] Body weight 2021-11-08 17:23:00 68.04 kg [facility] BMI 2021-11-08 17:23:00 22.15 kg/m2 [facility] Systolic blood 2021-08-31 22:00:00 143 mm[Hg] [facility] Diastolic blood 2021-08-31 22:00:00 77 mm[Hg] [facility] Heart rate 2021-08-31 22:00:00 60 /min [facility] Respiratory rate 2021-08-31 22:00:00 22 /min [facility] Oxygen saturation in 2021-08-31 22:00:00 97 /min [facility] Arterial blood by [facility] waqar Pulse oximetry Branch Body temperature 2021-08-31 20:13:37 36.22 Azul [facility] Body height 2021-08-31 19:44:00 177.8 cm [facility] Body weight 2021-08-31 19:44:00 71.668 kg [facility] BMI 2021-08-31 19:44:00 22.67 kg/m2 [facility] Systolic blood 2019-09-20 17:45:00 145 mm[Hg] [facility] Diastolic blood 2019-09-20 17:45:00 72 mm[Hg] [facility] Respiratory rate 2019-09-20 17:45:00 15 /min [facility] Heart rate 2019-09-20 17:40:00 57 /min [facility] Oxygen saturation in 2019-09-20 17:40:00 100 /min [facility] Arterial blood by [facility] Pulse oximetry Branch Body temperature 2019-09-20 17:27:00 37 Azlu [facility] Body height 2019-09-15 14:52:00 175.3 cm [facility] Body weight 2019-09-15 14:52:00 61.7 kg [facility] BMI 2019-09-15 14:52:00 20.08 kg/m2 [facility] Respiratory rate 2019-09-20 17:21:00 24 /min [facility] Systolic blood 2019-09-06 15:35:00 151 mm[Hg] [facility] Diastolic blood 2019-09-06 15:35:00 71 mm[Hg] [facility] Heart rate 2019-09-06 15:35:00 64 /min [facility] Respiratory rate 2019-09-06 15:35:00 16 /min [facility] Oxygen saturation in 2019-09-06 15:35:00 100 /min [facility] Arterial blood by [facility] waqar Pulse oximetry Branch Body temperature 2019-09-06 12:36:00 36.89 Azul [facility] Body height 2019-09-04 16:45:[address] [facility] Body weight 2019-09-04 16:45:[address] [facility] BMI 2019-09-04 16:45:00 20.08 kg/m2 [facility] Respitory Rate 2022-02-28 17:00:00 [facility] Systolic (mm Hg) 2022-02-28 17:00:00 [place] Diastolic (mm Hg) 2022-02-28 17:00:00 [facility] Respitory Rate 2022-02-28 16:00:00 [facility] [place] Systolic (mm Hg) 2022-02-28 16:00:00 [place] Diastolic (mm Hg) 2022-02-28 16:00:00 [facility] [place] Respitory Rate 2022-02-28 15:00:00 [facility] [place] Systolic (mm Hg) 2022-02-28 15:00:00 [place] [facility] [place] Diastolic (mm Hg) 2022-02-28 15:00:00 [facility] [place] Temperature Oral (F) 2022-02-28 06:00:00 98.1 F [facility] [place] Temperature Oral (F) 2022-02-28 02:00:00 98.3 F [facility] Temperature Oral (F) 2022-02-27 22:00:00 98.4 F [facility] Height 2022-02-27 00:06:00 5 [ft_i] [facility] Weight 2022-02-27 00:06:00 [facility] [place] BMI Calculated 2022-02-27 00:06:00 [facility] [place] Heart Rate 2021-05-31 13:08:26 [facility] Respitory Rate 2021-05-31 13:08:26 [facility] [place] Systolic (mm Hg) 2021-05-31 13:08:16 [place] [place] Diastolic (mm Hg) 2021-05-31 13:08:16 [facility] [place] Temperature Oral (F) 2021-05-31 13:08:16 97.8 F [facility] [place] Heart Rate 2021-05-31 13:08:16 [facility] [place] Respitory Rate 2021-05-31 12:27:00 [facility] [place] Heart Rate 2021-05-31 08:17:45 [facility] Respitory Rate 2021-05-31 08:17:45 [facility] [place] Temperature Oral (F) 2021-05-31 08:16:46 97.6 F [facility] [place] Systolic (mm Hg) 2021-05-31 08:16:38 [place] [place] Diastolic (mm Hg) 2021-05-31 08:16:38 [facility] [place] Temperature Oral (F) 2021-05-31 04:14:17 97.7 F [facility] [place] Systolic (mm Hg) 2021-05-31 04:14:15 [place] [facility] [place] Diastolic (mm Hg) 2021-05-31 04:14:15 [facility] [place] Height 2021-05-30 21:03:00 172.72 cm [facility] Weight 2021-05-30 21:03:00 [facility] [place] BMI Calculated 2021-05-30 21:03:00 [facility] Systolic (mm Hg) 2021-05-08 15:02:00 [place] [facility] [place] Diastolic (mm Hg) 2021-05-08 15:02:00 [facility] [place] Heart Rate 2021-05-08 15:02:00 [facility] [place] Respitory Rate 2021-05-08 15:02:00 [facility] [place] Height 2021-05-08 15:02:00 172.72 cm [facility] [place] Weight 2021-05-08 15:02:00 [facility] BMI Calculated 2021-05-08 15:02:00 [facility] [place] Systolic (mm Hg) 2021-04-07 00:00:00 [place] Diastolic (mm Hg) 2021-04-07 00:00:00 [facility] [place] Temperature Oral (F) 2021-04-06 23:38:00 97.8 F [facility] Systolic (mm Hg) 2021-04-06 23:00:00 [place] Diastolic (mm Hg) 2021-04-06 23:00:00 [facility] [place] Systolic (mm Hg) 2021-04-06 22:00:00 [place] [facility] [place] Diastolic (mm Hg) 2021-04-06 22:00:00 [facility] [place] Respitory Rate 2021-04-06 21:00:00 [facility] [place] Respitory Rate 2021-04-06 18:00:00 [facility] [place] Respitory Rate 2021-04-06 17:00:00 [facility] Temperature Oral (F) 2021-04-06 15:19:00 97.0 F [facility] Height 2021-04-06 12:38:00 172.72 cm [facility] Weight 2021-04-06 12:38:00 [facility] [place] BMI Calculated 2021-04-06 12:38:00 [facility] [place] Systolic (mm Hg) 2020-07-16 15:00:00 [place] [place] Diastolic (mm Hg) 2020-07-16 15:00:00 [facility] [place] Heart Rate 2020-07-16 15:00:00 [facility] [place] Respitory Rate 2020-07-16 15:00:00 [facility] [place] Weight 2020-07-16 15:00:00 [facility] [place] Systolic (mm Hg) 2020-01-16 16:30:00 [place] [place] Diastolic (mm Hg) 2020-01-16 16:30:00 [facility] [place] Heart Rate 2020-01-16 16:30:00 [facility] Height 2020-01-16 16:30:00 175.26 cm [facility] Weight 2020-01-16 16:30:00 [facility] [place] BMI Calculated 2020-01-16 16:30:00 [facility] [place] Systolic (mm Hg) 2019-04-20 17:29:00 [place] [facility] [place] Diastolic (mm Hg) 2019-04-20 17:29:00 [facility] Heart Rate 2019-04-20 17:29:00 [facility] Respitory Rate 2019-04-20 17:29:00 [facility] [place] Height 2019-04-20 17:29:00 177.8 cm [facility] Weight 2019-04-20 17:29:00 [facility] BMI Calculated 2019-04-20 17:29:00 [facility] Systolic (mm Hg) 2019-03-23 16:27:00 [place] [facility] [place] Diastolic (mm Hg) 2019-03-23 16:27:00 [facility] Heart Rate 2019-03-23 16:27:00 [facility] [place] Respitory Rate 2019-03-23 16:27:00 [facility] [place] Height 2019-03-23 16:27:00 175.26 cm [facility] Weight 2019-03-23 16:27:00 [facility] [place] BMI Calculated 2019-03-23 16:27:00 [facility] [place] Respitory Rate 2017-12-30 13:11:00 [facility] Heart Rate 2017-12-30 13:11:00 [facility] Systolic (mm Hg) 2017-12-30 13:11:00 [place] Diastolic (mm Hg) 2017-12-30 13:11:00 [facility] [place] Temperature Oral (F) 2017-12-30 13:11:00 98.1 F [facility] Temperature Oral (F) 2017-12-30 07:40:00 97.8 F [facility] Heart Rate 2017-12-30 07:40:00 [facility] [place] Systolic (mm Hg) 2017-12-30 07:40:00 [place] [facility] [place] Diastolic (mm Hg) 2017-12-30 07:40:00 [facility] [place] Respitory Rate 2017-12-30 07:40:00 [facility] Heart Rate 2017-12-30 00:29:00 [facility] Temperature Oral (F) 2017-12-30 00:29:00 97.6 F [facility] Respitory Rate 2017-12-30 00:29:00 [facility] Systolic (mm Hg) 2017-12-30 00:29:00 [place] [facility] [place] Diastolic (mm Hg) 2017-12-30 00:29:00 [facility] [place] Weight 2017-12-29 02:05:00 [facility] BMI Calculated 2017-12-29 02:05:00 [facility] Height 2017-12-29 02:05:00 175.26 cm [facility] [place] Weight 2017-12-28 18:05:00 [facility] BMI Calculated 2017-12-28 18:05:00 [facility] Height 2017-12-28 18:05:00 175.26 cm [facility] Procedures Procedure Date / Time Performing Clinician Source Performed VERIFYNOW ASPIRIN TEST 2022-03-13 11:03:00 Francine Keen Sola [facility] TROPONIN I 2022-03-12 18:59:00 Lane [facility] [place] MODIFIED BARIUM SWALLOW 2022-03-12 15:21:00 Lulu Morris [facility] CT HEAD WO CONTRAST 2022-03-12 13:35:28 Alcides Sherman [facility] TROPONIN I 2022-03-12 10:29:00 Lane [facility] HEPATIC FUNCTION PANEL 2022-03-12 10:29:00 Lane [facility] ([id number]) (ALB,T.PRO,BILI [facility] T,BU/BC,ALT,AST,ALK PHOS) CBC WITH DIFF 2022-03-12 10:29:00 Lane [facility] RETICULOCYTES AUTOMATED 2022-03-12 10:29:00 Lulu Morris [facility] TROPONIN I 2022-03-12 01:47:00 Lane [facility] POCT GLUCOSE (AUTOMATED) 2022-03-12 01:03:00 Beth Obrien [facility] XR CHEST 2 VW 2022-03-11 23:43:00 Lane [facility] TRANSTHORACIC ECHO (TTE) 2022-03-11 17:10:28 Alcides Sherman [facility] COMPLETE [facility] GALV ONLY - INFLUENZA A B 2022-03-11 11:03:00 Alcides Sherman [facility] RSV PCR [facility] COVID-19 (ID NOW RAPID 2022-03-11 11:03:00 Lane [facility] TESTING) [facility] LAB ONLY COVID 2022-03-11 11:03:00 Lane [facility] INTERPRETATION [facility] ACUTE CARE ARTERIAL BLOOD 2022-03-11 08:16:00 Alcides Sherman [facility] GAS [facility] D-DIMER 2022-03-11 07:48:00 Lane [facility] MAGNESIUM 2022-03-11 07:47:00 Lane [facility] TROPONIN I 2022-03-11 07:47:00 Lane [facility] THYROID STIMULATING 2022-03-11 07:47:00 Lane [facility] HORMONE [facility] BASIC METABOLIC PANEL (NA, 2022-03-11 07:47:00 Lane [facility] K, CL, CO2, GLUCOSE, BUN, Medica [facility] CREATININE, CA) LIPID PANEL ([id number])(TOTAL 2022-03-11 07:47:00 Alcides Sherman [facility] CHOLESTEROL, [facility] TRIGLYCERIDES, HDL) CBC WITH DIFF 2022-03-11 07:47:00 Lane [facility] N-TERMINAL PRO-BNP 2022-03-11 07:47:00 Lane [facility] PROCALCITONIN 2022-03-11 07:47:00 Lane [facility] URINALYSIS 2022-03-11 00:01:00 Leeanne Hawley [facility] HB ECG ROUTINE & RHYTHM 2022-03-10 22:58:03 Leeanne Hawley [facility] STRIP [facility] CT STROKE ANGIOGRAM HEAD 2022-03-10 22:45:10 Leeanne Hawley [facility] CT STROKE ANGIOGRAM NECK 2022-03-10 22:45:10 Leeanne Hawley [facility] CT STROKE PERFUSION W 2022-03-10 22:45:10 Leeanne Hawley [facility] CONTRAST [facility] CT STROKE HEAD WO CONTRAST 2022-03-10 22:36:32 Leeanne Hawley [facility] TROPONIN I 2022-03-10 22:24:00 Leeanne Hawley [facility] BASIC METABOLIC PANEL (NA, 2022-03-10 22:24:00 Leeanne Hawley [facility] K, CL, CO2, GLUCOSE, BUN, [facility] CREATININE, CA) CBC WITHOUT DIFF 2022-03-10 22:24:00 Leeanne Hawley [facility] GLYCOSYLATED HEMOGLOBIN 2022-03-10 22:24:00 Lane [facility] (A1C) [facility] PROTHROMBIN TIME / INR 2022-03-10 22:24:00 Leeanne Hawley [facility] ACTIVATED PARTIAL THRMPLAS 2022-03-10 22:24:00 Hawley, Leeanne [facility] HOSPITAL ADMISSION 2022-03-10 06:01:00 Doctor Meeta [facility] AUTHORIZATION FOR RELEASE 2022-02-05 06:01:00 Doctor Meeta [facility] REFERRAL- REQUEST/RESPONSE 2021-12-30 05:01:00 Doctor Maryssanais , [facility] BASIC METABOLIC PANEL (NA, 2021-12-10 09:31:00 Catherine Shipman [facility] K, CL, CO2, GLUCOSE, BUN, [facility] CREATININE, CA) CBC WITH DIFF 2021-12-10 09:31:00 Holger [facility] LACTIC ACID WHOLE BLOOD 2021-12-10 09:31:00 Holger [facility] LACTIC ACID WHOLE BLOOD 2021-12-10 02:26:00 Leeanne Hawley [facility] CT CHEST PULMONARY 2021-12-09 20:35:00 Leeanne Hawley [facility] ANGIOGRAM [facility] CT HEAD WO CONTRAST 2021-12-09 20:27:[address] [facility] URINALYSIS 2021-12-09 19:49:00 Leeanne Hawley [facility] EKG-12 LEAD 2021-12-09 19:46:25 Leeanne Hawley [facility] HB ECG ROUTINE & RHYTHM 2021-12-09 18:56:55 Leeanne Hawley [facility] AC ABG + LACTIC ACID 2021-12-09 18:43:00 Leeanne Hawley [facility] BLOOD CULTURE SCREEN 2021-12-09 18:38:00 Leeanne Hawley [facility] LIPASE 2021-12-09 18:38:00 Leeanne Hawley [facility] TROPONIN I 2021-12-09 18:38:00 Leeanne Hawley [facility] COMP. METABOLIC PANEL 2021-12-09 18:38:00 Leeanne Hawley [facility] ([id number]) [facility] CBC WITH DIFF 2021-12-09 18:38:00 Leeanne Hawley [facility] PROTHROMBIN TIME / INR 2021-12-09 18:38:00 Leeanne Hawley [facility] N-TERMINAL PRO-BNP 2021-12-09 18:38:00 Leeanne Hawley [facility] COVID-19 (ID NOW RAPID 2021-12-09 18:38:00 Leeanne Hawley [facility] TESTING) [facility] LAB ONLY COVID 2021-12-09 18:38:00 Leeanne Hawley [facility] INTERPRETATION [facility] XR CHEST 1 VW 2021-12-09 18:32:10 Leeanne Hawley [facility] NOTICE OF PRIVACY 2021-12-09 17:39:37 Doctor Unassigned, [facility] PRACTICES [place] [facility] CONSENT/REFUSAL FOR 2021-12-09 17:39:13 Doctor Unassanais, [facility] DIAGNOSIS AND TREATMENT [place] [facility] DNR 2021-12-09 05:01:00 Doctor Unaelif, [facility] Name [facility] REFERRAL- REQUEST/RESPONSE 2021-12-09 05:01:00 Doctor Unaelif , [facility] Name [facility] TRANSTHORACIC ECHO (TTE) 2021-11-26 13:08:00 Joo Mccabe [facility] CT HEAD WO CONTRAST 2021-11-26 10:34:[address] [facility] TRANSTHORACIC ECHO (TTE) 2021-11-25 20:00:00 Glenys Ayala [facility] COMPLETE W/ CONTRAST [facility] LIPID PANEL ([id number])(TOTAL 2021-11-25 11:55:00 [facility] TRIGLYCERIDES, HDL) TROPONIN I 2021-11-25 11:49:00 Glenys Ayala [facility] BASIC METABOLIC PANEL (NA, 2021-11-25 11:49:00 Glenys Ayala U [facility] K, CL, CO2, GLUCOSE, BUN, [facility] CREATININE, CA) HB ECG ROUTINE & RHYTHM 2021-11-25 11:37:48 Glenys Ayala [facility] STRIP [facility] COMP. METABOLIC PANEL 2021-11-24 18:10:00 Singer [facility] ([id number]) [facility] CBC WITH DIFF 2021-11-24 17:40:00 Singer [facility] GLYCOSYLATED HEMOGLOBIN 2021-11-24 17:40:00 Glenys Ayala [facility] (A1C) [facility] N-TERMINAL PRO-BNP 2021-11-24 17:40:00 Singer [facility] COVID-19 (ID NOW RAPID 2021-11-24 17:40:00 Singer [facility] TESTING) [facility] LAB ONLY COVID 2021-11-24 17:40:00 Singer [facility] INTERPRETATION [facility] HB ECG ROUTINE & RHYTHM 2021-11-24 17:34:08 Singer [facility] STRIP [facility] EMERGENCY DEPARTMENT 2021-11-24 05:01:00 Doctor Unassigned, [facility] DOCUMENTS [place] [facility] HOSPITAL ADMISSION 2021-11-24 05:01:00 Doctor Unassigned, [facility] Name [facility] EKG-12 LEAD 2021-11-23 11:26:31 Priti [facility] CT ANGIOGRAM HEAD 2021-11-23 08:33:48 [address]rit[address] [facility] CT ANGIOGRAM NECK 2021-11-23 08:33:[address] [facility] CT ABDOMEN PELVIS WO 2021-11-23 08:33:18 Priti Angola [facility] CONTRAST [facility] CT HEAD WO CONTRAST 2021-11-23 08:31:00 Faustino Marcos [facility] XR CHEST 1 VW 2021-11-23 06:57:34 Priti [facility] LIPASE 2021-11-23 06:50:00 Priti [facility] TROPONIN I 2021-11-23 06:50:00 Priti [facility] COMP. METABOLIC PANEL 2021-11-23 06:50:00 Priti [facility] ([id number]) Medical Branch CBC WITH DIFF 2021-11-23 06:50:00 Faustino Marcos [facility] PROTHROMBIN TIME / INR 2021-11-23 06:50:00 Faustino Marcos [facility] ACTIVATED PARTIAL THRMPLAS 2021-11-23 06:50:00 Faustino Marcos [facility] N-TERMINAL PRO-BNP 2021-11-23 06:50:00 Faustino Marcos [facility] COVID-19 (ID NOW RAPID 2021-11-23 06:50:00 Faustino Marcos [facility] TESTING) [facility] CT ABDOMEN PELVIS W 2021-11-08 18:24:49 Leeanne Hawley [facility] URINALYSIS 2021-11-08 17:54:00 Leeanne Hawley [facility] CONSENT/REFUSAL FOR 2021-11-08 17:42:03 Doctor Unassigned, [facility] DIAGNOSIS AND TREATMENT [place] [facility] LIPASE 2021-11-08 17:38:00 Leeanne Hawley [facility] TROPONIN I 2021-11-08 17:38:00 Leeanne Hawley [facility] COMP. METABOLIC PANEL 2021-11-08 17:38:00 Leeanne Hawley [facility] ([id number]) [facility] CBC WITH DIFF 2021-11-08 17:38:00 Leeanne Hawley [facility] PROTHROMBIN TIME / INR 2021-11-08 17:38:[address] [facility] ACTIVATED PARTIAL THRMPLAS 2021-11-08 17:38:00 Leeanne Haw[facility] N-TERMINAL PRO-BNP 2021-11-08 17:38:00 Leeanne Hawley [facility] COVID-19 (ID NOW RAPID 2021-11-08 17:38:00 Leeanne Hawley [facility] TESTING) [facility] URINALYSIS 2021-08-31 21:12:00 Keren Garcia [facility] CT ABDOMEN PELVIS W 2021-08-31 20:57:16 Keren Garcia [facility] LACTIC ACID WHOLE BLOOD 2021-08-31 20:05:00 Keren [facility] LIPASE 2021-08-31 20:04:00 Keren Garcia [facility] TROPONIN I 2021-08-31 20:04:00 Keren Garcia [facility] COMP. METABOLIC PANEL 2021-08-31 20:04:00 Keren Garcia [facility] ([id number]) Medical Branch CBC WITH DIFF 2021-08-31 20:04:00 Keren Garcia [facility] NOTICE OF PRIVACY 2021-08-31 19:53:25 Doctor Meeta, [facility] [place] [facility] CONSENT/REFUSAL FOR 2021-08-31 19:41:26 Doctor Meeta [facility] DIAGNOSIS AND TREATMENT [place] [facility] CONSENT/REFUSAL FOR 2019-09-19 16:50:11 Doctor Meeta [facility] DIAGNOSIS AND TREATMENT [place] [facility] ASSIGNMENT OF BENEFITS 2019-09-19 16:49:50 Doctor Joseph Tim [facility] [place] [facility] COVID-19 (ID NOW RAPID 2019-09-05 13:59:00 Baljinder Blankenship [facility] TESTING) Medical Branch NOTICE OF BILLING 2019-09-05 13:42:11 Doctor Meeta, [facility] PRACTICES FOR MEDICARE [place] [facility] PATIENTS NO SHOW OR MISSED 2019-08-28 16:38:58 Doctor Meeta [facility] APPOINTMENT POLICY [place] [facility] ACKNOWLEDGEMENT NOTICE OF PRIVACY 2019-08-28 16:38:33 Doctor Meeta [facility] [place] [facility] CONSENT/REFUSAL FOR 2019-08-28 16:38:09 Doctor Meeta [facility] DIAGNOSIS AND TREATMENT [place] [facility] ASSIGNMENT OF BENEFITS 2019-08-28 16:37:41 Doctor Joseph Tim [facility] [place] [facility] Cholecystectomy 2017-04-06 06:00:[address] [facility] Arterial bypass of lower 2015-04-06 06:00:00 Jovanni Ramey extremity artery Cardiac pacemaker 2011-04-06 06:00:00 Lilian zaragoza procedure Placement of stent in 2006-04-06 06:00:00 Isai Martinez cardiac conduit Plan of Care Planned Activity Planned Date Details Comments Source Encounters Start End Encounter Admission Attending Care Care Encounter Source Date/Time Date/Time Type Type Clinicians Facility Department ID 2022-02-26 [id number]00 Encounter [facility] 2022-02-26 [facility] [id number] [facility] 00:00:00 Encounter [facility] 2021-01-03 Outpatient R QUINTEN [facility] LE [id number] Univers 05:38:44 [facility] 2021-01-03 [facility] [id number] Univers 02:09:15 [facility] 2022-03-10 2022-03-13 Inpatient U GEMMAPRAVEEN [facility] ITALIA [id number] Univers 16:15:00 14:53:00 BETH [facility] 2022-03-10 2022-03-13 [facility] Leeanne Hawley [id number] Univers 16:15:00 14:53:00 Encounter Beth Obrien [id number] [id number] Zac as [id number] [address] 2022-02-27 2022-02-28 Inpatient [facility] [id number] Memoria 00:00:00 18:25:[address] 2022-02-27 2022-02-28 Inpatient [facility] [id number] Memoria 00:00:00 18:25:[address] 2022-02-26 2022-02-28 Inpatient U KATIE [facility] CAR 2356 [facility] 18:00:00 12:25:00 ТАТЬЯНА 2022-02-26 2022-02-28 Outpatient Katie [facility] [id number] 18:00:00 12:25:00 Татьяна Tucker 2022-02-26 2022-02-28 Outpatient Katie [facility] [id number] 18:00:00 12:25:00 Татьяна Tucker 2022-02-05 2022-02-05 Orders Doctor ACACIA [id number] Univers 00:00:00 00:00:00 Only Unassigned, EDWIGE [id number] ity [facility] [place] [facility] [id number] Zac as [id number] [address] 2022-01-06 2022-01-06 Obiee Report Developer Lab, Ang - Db [facility] [id number] Univers 11:45:00 12:12:36 Visit Froy Valverde [facility] [id number] 10 ity of [place] [id number] Zac as YUE?BLEA [id number] [facility] [address] MEDICAL OFFICE [facility] 2022-01-06 2022-01-06 Outpatient R FROY [facility] [id number] Univers 11:00:00 11:38:34 [facility]FROY [facility]22-[facility] 2022-01-06 [facility] [id number] Univers 11:00:00 11:38:34 Visit Froy [facility] [id number] ity of [place] [id number] Zac as YUE?BLEA [id number] [place] [facility] [address] MEDICAL OFFICE [facility] 2021-12-30 2021-12-30 Orders Doctor ACACIA [id number] Univers 00:00:00 00:00:00 Only Unassigned, EDWIGE 350.1.13.10 ity of [place] [facility] 4.2.7.2.686 Zac as [id number] [address] 2021-12-12 2021-12-12 Transition BRIJESH Vincent 1.2.840.114 [id number] Univers 00:00:00 00:00:00 of Care Mabel FLOYDY 350.1.13.10 i [place] [phone] [facility] [address] 2021-12-09 2021-12-11 Outpatient Sanjeev GRIMALDO [facility] [id number] Univers 12:45:00 17:25:00 ESTEBAN itboo of [facility] 2021-12-09 2021-12-11 Emergency Leeanne Hawley [facility] 1.2.840. 114 [id number] Univers 12:45:00 17:25:00 Tunde Gamez 350.1.13.10 ity of [place] 4.2.7.2.686 [facility] [phone] [facility] [address] 2021-12-09 2021-12-09 Outpatient R THEA [facility] [id number] Univers 11:00:00 11:00:00 [facility] 2021-12-09 2021-12-09 Orders Doctor ACACIA 1.2.840.114 [id number] Univers 00:00:00 00:00:00 Only Unassigned, EDWIGE 350.1.13.10 ity of [place] [facility] 4.2.7.2.686 [place] [phone] [facility] [address] 2021-11-27 2021-11-27 Transition BRIJESH Coley 1.2.840.114 [id number] Univers 00:00:00 00:00:00 of Care Jessica BEAR 350.1.13.10 it y of [place] [phone] [facility] [address] 2021-11-24 2021-11-26 [facility] Richi Castellon 1.2.840.1 [id number] Univers 12:26:00 16:47:00 Encounter Mariajose Garcia 350. 1.13.10 ity of [facility] 4.2.7.2.686 [place] [phone] [facility] [address] 2021-11-23 2021-11-23 [facility] [id number] Univers 01:10:00 06:46:00 FAUSTINO montaño [facility] 2021-11-23 2021-11-23 Emergency Priti [facility] [id number] [id number] Univers 01:10:00 06:46:00 Faustino CHANG 350.1.13.10 ity of [place] 4.2.7.2.686 [facility] [phone] [address] 2021-11-23 2021-11-23 Emergency X PRITI [facility] ERT [id number] Univers 01:10:00 06:46:00 FAUSTINO montaño [facility] 2021-11-08 2021-11-08 Emergency X [facility] ERT [id number] Univers 12:26:00 16:00:00 LEEANNE [facility] 2021-11-08 2021-11-08 [facility] [id number] Univers 12:26:00 16:00:00 Leeanne CHANG 350.1.13.10 i ty [facility] 4.2.7.2.686 [facility] [phone] [address] 2021-09-09 2021-09-09 Ambulatory nullFlavo MNA [id number] Memoria 14:30:00 14:30:00 Pre-Reg r Neurology 08 l Rose Marie Searsann 2021-09-09 2021-09-09 Ambulatory nullFlavo MNA [id number] Memoria 14:30:00 14:30:00 Pre-Reg r Neurology 08 l Rose Marie Ramey 2021-09-09 2021-09-09 Outpatient MARISELA BuenrostroSCHWILLIAM [id number] 09:30:00 09:30:00 Rajendra Camille Richards 2021-08-31 2021-08-31 Emergency [facility] [id number] Univers 14:47:00 17:37:00 KEREN [facility] 2021-08-31 2021-08-31 Emergency [facility] 1.2.840.114 [id number] Univers 14:47:00 17:37:00 Keren CHANG 350.1.13.10 itboo [facility] 4.2.7.2.686 [facility] [phone] [address] 2021-08-08 2021-08-08 Outpatient MHIE MARAIE [id number] Memoria 10:45:00 10:45:00 08 anil Ramey 2021-05-30 2021-05-31 Observatio nullFlavo [facility] [id number] Memoria 20:53:00 15:25:00 n sophie Ramey 84 l [facility] 2021-05-30 2021-05-31 Observatio nullFlavo [facility] [id number] Memoria 20:53:00 15:25:00 n sophie Ramey 84 l [facility] 2021-05-30 2021-05-31 Outpatient Sajbrent, PL PL [id number] 15:53:00 10:25:00 Jorgito 84 2021-05-30 2021-05-31 Outpatient Sajja, PL PL [id number] 15:53:00 10:25:00 Jorgito 84 2021-05-08 2021-05-09 Outpatient nullFlavo MNA [id number] Memoria 15:00:00 05:59:59 r Neurology 07 l [facility] 2021-05-08 2021-05-09 Outpatient nullFlavo MNA [id number] Memoria 15:00:00 05:59:59 r Neurology 07 l [facility] 2021-05-08 2021-05-08 [facility] [id number] 09:00:00 23:59:59 Rajendra Smita Richards 2021-05-08 2021-05-08 Outpatient SANDRA JOSE [id number] Memoria 09:00:00 09:00:00 07 anil [place] 2021-04-06 2021-04-06 Inpatient nullFlavo [facility] [id number] Memoria 12:28:00 23:30:00 r [place] 30 [facility] 2021-04-06 2021-04-06 Inpatient nullFlavo [facility] [id number] Memoria 12:28:00 23:30:00 r [place] 30 [facility] 2021-04-06 2021-04-06 Outpatient Quinten [facility] [id number] 06:28:00 17:30:00 Sigifredo 30 [facility] 2021-04-06 2021-04-06 Outpatient Quinten [facility] [id number] 06:28:00 17:30:00 Sigifredo 30 Jason 2020-07-16 2020-07-17 Outpatient nullFlavo MNA [id number] Memoria 15:30:00 04:59:59 r Neurology 06 l Rose Marie Ramey 2020-07-16 2020-07-17 Outpatient nullFlavo MNA [id number] Memoria 15:30:00 04:59:59 r Neurology 06 l Rose Marie Ramey 2020-07-16 2020-07-16 [facility] [id number] 10:30:00 23:59:59 Rajendra 06 [place] 2020-07-16 2020-07-16 Outpatient MHIE MHIE [id number] Memoria 10:30:00 10:30:00 06 anil Tanvir 2020-01-16 2020-01-17 Outpatient nullFlavo MNA [id number] Memoria 16:30:00 05:59:59 r Neurology 05 l Rose Marie Tanvir 2020-01-16 2020-01-17 Outpatient nullFlavo MNA [id number] Memoria 16:30:00 05:59:59 r Neurology 05 anil Trotter Tanvir 2020-01-16 2020-01-16 Outpatient Chitra, [facility] [id number] 10:30:00 23:59:59 Rajendra Dakota Richards 2020-01-16 2020-01-16 Outpatient MHIE MHIE [id number] Memoria 10:30:00 10:30:00 05 anil [place] 2019-09-21 2019-09-21 Ambulatory nullFlavo MNA [id number] Memoria 14:15:00 14:15:00 Pre-Reg r Neurology 03 l Rose Marie [place] 2019-09-21 2019-09-21 Ambulatory nullFlavo MNA [id number] Memoria 14:15:00 14:15:00 Pre-Reg r Neurology 04 l Rose Marie [place] 2019-09-21 2019-09-21 Ambulatory nullFlavo MNA [id number] Memoria 14:15:00 14:15:00 Pre-Reg r Neurology 04 l Rose Marie [place] 2019-09-21 2019-09-21 Ambulatory nullFlavo MNA [id number] Memoria 14:15:00 14:15:00 Pre-Reg r Neurology 03 l Rose Marie [place] 2019-09-21 2019-09-21 Outpatient MHIE MHIE [id number] Memoria 09:15:00 09:15:00 04 anil Ramey 2019-09-21 2019-09-21 Outpatient MHIE MHIE [id number] Memoria 09:15:00 09:15:00 03 anil Ramey 2019-09-21 2019-09-21 Outpatient MARA BuenrostroMISCHER MHJOVANNISCHER [id number] 09:15:00 09:15:00 Rajendra 03 [place] 2019-09-21 2019-09-21 Outpatient Chitra MHMISCHER MHMISCHER [id number] 09:15:00 09:15:00 Rajendra 04 [facility] 2019-09-20 2019-09-20 [facility] [id number] Univers 09:06:00 12:51:00 Encounter Sebastian Chang 350.1.13.10 [place] [id number] [facility] [address] 2019-09-20 2019-09-20 Anesthesia Pablo Fairbanks [facility] 1.2.840.11 [id number] Univers 11:44:00 12:22:00 Alley Hopper 350.1.13.10 [place] [id number] [facility] [address] 2019-09-19 2019-09-19 Outpatient R [facility] [id number] Univers 13:45:00 13:45:00 ity of [facility] 2019-09-19 2019-09-19 Laboratory Only, Adc Test [facility] 1.2.840. 114 [id number] Univers 11:51:03 12:06:03 Only [place] 350.1.13.10 [place] [id number] [address] 2019-09-06 2019-09-06 [facility] [id number] [id number] Univers 07:16:00 10:35:00 Encounter Sebastian Chang 350.1.13.10 [place] [id number] [facility] [address] 2019-09-05 2019-09-05 Outpatient R [facility] [id number] Univers 09:00:00 09:00:00 ity of [facility] 2019-09-05 2019-09-05 Laboratory Only, Adc Test [facility] 1.2.840. 114 [id number] Univers 08:32:02 08:47:02 Only [place] 350.1.13.10 [place] [phone] [facility] [address] 2019-09-05 2019-09-05 Orders Doctor ACACIA 1.2.840.114 [id number] Univers 00:00:00 00:00:00 Only Unassigned, EDWIGE 350.1.13.10 ity of [place] [facility] 4.2.7.2.686 [place]ac [place] [id number] [facility] [address] 2019-08-28 2019-08-28 Obiee Report Developer Yuni, Adc Lab Main [facility] 1.2.8 40.114 [id number] Univers 11:46:40 12:01:40 Visit Sebastian Shipley 350.1.13.1 0 [place] [id number] [address] 2019-08-28 2019-08-28 Outpatient R QUINTEN [facility] [id number] Univers 12:00:00 12:00:00 SEBASTIAN montaño [facility] 2019-06-20 2019-06-21 Outpatient nullFlavo MNA [id number] Memoria 16:15:00 04:59:59 r Neurology 02 l Rose Marie Tanvir 2019-06-20 2019-06-21 Outpatient nullFlavo MNA [id number] Memoria 16:15:00 04:59:59 r Neurology 02 l Rose Marie Searsann 2019-06-20 2019-06-20 Outpatient NAKITA BuenrostroSCHWILLIAM MACESCHWILLIAM [id number] 11:15:00 23:59:59 Rajendra Richards 2019-06-20 2019-06-20 Outpatient MHIE MARAIE [id number] Memoria 11:15:00 11:15:00 02 l [place] 2019-05-15 2019-05-15 Emergency [facility] [id number]- Rastafarian 10:41:00 10:41:00 [id number] Hospi prachi l (Beaumo nt) 2019-05-13 2019-05-13 Outpatient 1 HARJIT SALINAS OBE [id number]- Rastafarian 19:58:00 19:58:00 JESUS [id number] Hospi ta l (Beauvt nt) 2019-04-20 2019-04-21 Outpatient nullFlavo MNA [id number] Memoria 17:45:00 05:59:59 r Neurology 01 l Covel Tanvir 2019-04-20 2019-04-21 Outpatient nullFlavo MNA [id number] Memoria 17:45:00 05:59:59 r Neurology 01 l Rose Marie Ramey 2019-04-20 2019-04-20 Outpatient MARA BuenrostroMISCHER MHMISCHER [id number] 11:45:00 23:59:59 Rajendra 01 [place] 2019-04-20 2019-04-20 Outpatient MHIE MHIE [id number] Memoria 11:45:00 11:45:00 01 l Tanvir 2019-03-23 2019-03-24 Outpatient nullFlavo MNA [id number] Memoria 17:00:00 05:59:59 r Neurology 00 l Covel [place] 2019-03-23 2019-03-24 Outpatient nullFlavo MNA [id number] Memoria 17:00:00 05:59:59 [facility] 2019-03-23 2019-03-23 Outpatient MARA BuenrostroMISCHER MHMISCHER [id number] 11:00:00 23:59:59 Rajendra 00 [place] 2019-03-23 2019-03-23 Outpatient MHIE MHIE [id number] Memoria 11:00:00 11:00:00 00 [facility] 2017-12-28 2017-12-30 Observatio nullFlavo [facility] [id number] Memoria 18:08:00 16:59:00 becky Ramey [address] [facility] 2017-12-28 2017-12-30 Observatio nullFlavo [facility] [id number] Memoria 18:08:00 16:59:00 n sophie Ramey 67 l [facility] 2017-12-28 2017-12-30 Outpatient Eliu [facility] [id number] 13:08:00 11:59:00 Divina Shukla 2007-08-24 2007-08-24 Outpatient [facility] [id number] Univers 00:00:00 11:29:53 9 [facility] 2007-07-27 2007-07-27 Outpatient [facility] [id number] Univers 00:00:00 10:45:47 3 [facility] Results Test Description Test Time Test Comments Results Result Comments Source TROPONIN I 2022-03-12 02:27:10 Test Item Value Reference Range Interpretation Comme nts TROPONIN I (test code = 0.008 ng/mL See_Comment [Au tomated message] The 2457286798) system which ge nerated this result tra nsmitted reference range : <=0.034. The reference r bret was not used to int erpret this result as normal/abnormal . ANDREA (test code = ANDREA) Reference (Normal) Range (defined by the 99th percentile reference [...] biotin. Lab Interpretation Normal (test code = 30624-6) [facility] 01:04:26 Test Item Value Reference Range Interpretation Comments POCT GLU (test code = 5179280533) 141 mg/dL 70-110 H Lab Interpretation (test code = Abnormal 08370-5) [facility] - Transthoracic echo (TTE) 2022-03-12 00:55:00 Test Item Value Reference Range Interpretation Comments Height (test code = in 5026255256) Weight (test code = lbs 3431414822) Systolic BP (test code = mmHg 8119276214) Diastolic BP (test code mmHg = 8818253579) Heart Rate (test code = bpm 9745966245) BSA (test code = 1.77 m2 5175438931) LVIDD (test code = 4.60 cm 4813382388) Left Ventricular End 95.4 mL Diastolic Volume by Teichholz Method (test code = 2514991) IVS (test code = 0.85 cm 9448371479) Interventricular Septum 0.85 cm Diastolic Thickness by 2D (test code = 6651753) LVPWD (test code = 0.89 cm 9364124249) PW (test code = 0.89 cm 0.6-1.5 5675230639) EF(Teich) (test code = 64.00 % 8926606264) LVIDS (test code = 3.00 cm 8841566660) Left Ventricular End 34.3 mL Systolic Volume by Teichholz Method (test code = 9329451) FS (test code = 35 % 7060183633) EF - 2D (test code = 64.00 % 74467901) LVOT diameter (test code 1.93 cm = 9017149058) LVOT area (test code = 2.90 cm2 1858024400) Ao root diam (test code 2.42 cm = 9196649334) Aortic root (test code = 2.42 cm 7592556181) Ao root annulus (test 2.42 cm code = 2037402814) LA size (test code = 3.4 cm 7683473516) TR Peak Adry (test code = 281.0 cm/s 3066990260) Triscuspid Valve mmHg Regurgitation Peak Gradient (test code = 1208763905) MV Peak E Adry (test code 77.1 cm/s = 3251710495) MV Peak A Adry (test code 75.4 cm/s = 8564400405) E/A ratio (test code = ratio 8995699840) E wave decelartion time 0.32 s (test code = 2496901199) MV Prop V (test code = 47.70 cm/s 0501717418) MV E/e' septal (test 8.8 cm/s code = 7419438494) LVOT stroke volume (test 83.20 cm3 code = 4820421578) LVOT peak adry (test code 128.5 cm/s = 8542389545) LVOT mn grad (test code mmHg = 8389246928) AV LVOT peak gradient mmHg (test code = 5205923468) LVOT peak VTI (test code 28.4 cm = 9956119385) LV V1 mean (test code = 75.50 cm/s 7349224509) Left Ventricular Cardiac 4.9 L/min Output (test code = 0208973) Aortic HR (test code = BPM 7836089869) Ao peak adry (test code = 148.0 cm/s 6426064728) AV area peak adry (test 2.5 cm2 code = 2938536980) Ao max PG (test code = 8.80 mm[Hg] 9491961157) AV peak gradient (test mmHg code = 2413141236) Tapse (test code = 2.22 cm 4946955052) LAV(MOD-sp4) (test code 56.30 mL = 2826476262) LA Volume Index (BP) 32.9 mL/m2 (test code = 9773953104) LA volume (BP) (test 58.1 mL code = 6107956002) LAV(MOD-sp2) (test code 56.30 mL = 0113508324) Radiology Study observation (narrative) (test code = 40966-6) ANDREA (test code = ANDREA) ?Left?Ventricle: Left ventricle size is normal. Normal wall thickness. Normal wall motion. Normal systolic function with a visually estimated EF of 55 - 60%. Normal diastolic function. ?Right?Ventricle: Right ventricle size is normal. Normal systolic function. ?Left?Atrium: Saline contrast shows no shunt. ?Tricuspid?Valve: Mild transvalvular regurgitation. Right ventricular systolic pressure is 30-35 mmHg. ?RA pressure is 0-5 mmHg. Barry Spangler MD Left VentricleLeft ventricle size is normal. Normal wall thickness. Normal wall motion. Normal systolic function with a visually estimated EF of 55 - 60%. Normal diastolic function.Right VentricleRight ventricle size is normal. Normal systolic function.Left AtriumLeft atrium size is normal. Saline contrast shows no shunt.Right AtriumRight atrium size is normal.IVC/SVCIVC diameter is less than or equal to 21 mm and decreases greater than 50% during inspiration; therefore the estimated right atrial pressure is normal (~0-5 mmHg).Mitral ValveMitral valve structure is normal.Tricuspid ValveTricuspid valve structure is normal. Mild transvalvular regurgitation. Right ventricular systolic pressure is 30-35 mmHg. RA pressure is 0-5 mmHg.Aortic ValveAortic valve structure is normal.Pulmonic ValveNot well visualized.Ascending AortaNormal sized aortic root.PericardiumThe pericardium is normal. No pericardial effusion.Study DetailsStudy quality was adequate. A complete echocardiogram was performed using 2D, color flow Doppler and spectral Doppler. Saline contrast was performed. [facility]2022-12-24 06:23:00 Test Item Value Reference Range Interpretation Comments Phosphorus (test code = Phosphorus) 3.4 2.5-4.5 [place] 114652-12-24 06:23:00 Test Item Value Reference Range Interpretation Comments Phosphorus (test code = Phosphorus) 3.4 2.5-4.5 [place] 114652-12-24 06:23:00 Test Item Value Reference Range Interpretation Comments Magnesium Lvl (test code = Magnesium 2.0 1.8-2.4 Lvl) [place] 114652-12-24 06:23:00 Test Item Value Reference Range Interpretation Comments Magnesium Lvl (test code = Magnesium 2.0 1.8-2.4 Lvl) [place] [address]-12-24 06:23:00 Test Item Value Reference Range Interpretation Comments Glucose Lvl (test code = Glucose Lvl) 105 70-99 [place] 114652-12-24 06:23:00 Test Item Value Reference Range Interpretation Comments BUN (test code = BUN) 16 7-22 [place] 114652-12-24 06:23:00 Test Item Value Reference Range Interpretation Comments Creatinine Lvl (test code = Creatinine 0.85 0.50-1.40 Lvl) [place] 114652-12-24 06:23:00 Test Item Value Reference Range Interpretation Comments Sodium Lvl (test code = Sodium Lvl) 136 135-145 [place] 114652-12-24 06:23:00 Test Item Value Reference Range Interpretation Comments Potassium Lvl (test code = Potassium 3.8 3.5-5.1 Lvl) [place] 114652-12-24 06:23:00 Test Item Value Reference Range Interpretation Comments Chloride Lvl (test code = Chloride Lvl) 105 95-109 [facility]2022-12-24 06:23:00 Test Item Value Reference Range Interpretation Comments CO2 (test code = CO2) 25 24-32 [place] 114652-12-24 06:23:00 Test Item Value Reference Range Interpretation Comments Calcium Lvl (test code = Calcium Lvl) 8.6 8.5-10.5 [place] 114652-12-24 06:23:00 Test Item Value Reference Range Interpretation Comments AGAP (test code = AGAP) 9.8 10.0-20.0 [facility]2022-12-24 06:23:00 Test Item Value Reference Range Interpretation Comments Glucose Lvl (test code = Glucose Lvl) 105 - [facility]2022-12-24 06:23:00 Test Item Value Reference Range Interpretation Comments eGFR (test code = eGFR) 92 [place] 871742-12-24 06:23:00 Test Item Value Reference Range Interpretation Comments Ca Ion WB (test code = Ca Ion WB) 1.16 1.05-1.25 [place] 871742-12-24 06:23:00 Test Item Value Reference Range Interpretation Comments Ca Ion at pH 7.4 WB (test code = Ca Ion 1.17 1.05-1.25 at pH 7.4 WB) [facility] FallsRqmohhpGFKIPBOOM0629-44-78 06:23:00 Test Item Value Reference Range Interpretation Comments Phosphorus (test code = Phosphorus) 3.4 2.5-4.5 [place] 871742-12-24 06:23:00 Test Item Value Reference Range Interpretation Comments Magnesium Lvl (test code = Magnesium 2.0 1.8-2.4 Lvl) [facility] FallsXlgzbmgUUQRELLUQ6645-75-89 06:23:00 Test Item Value Reference Range Interpretation Comments Glucose Lvl (test code = Glucose Lvl) 105 70-99 [place] 871742-12-24 06:23:00 Test Item Value Reference Range Interpretation Comments BUN (test code = BUN) 16 - [place] 871742-12-24 06:23:00 Test Item Value Reference Range Interpretation Comments Creatinine Lvl (test code = Creatinine 0.85 0.50-1.40 Lvl) [facility] FallsUdsewhnPRCFOBNDH9645-44-08 06:23:00 Test Item Value Reference Range Interpretation Comments Sodium Lvl (test code = Sodium Lvl) 136 135-145 [facility] FallsColgbmuHODYVXLCR5469-96-08 06:23:00 Test Item Value Reference Range Interpretation Comments Potassium Lvl (test code = Potassium 3.8 3.5-5.1 Lvl) [facility] FallsLozbnfrTGUUKEESZ0446-89-40 06:23:00 Test Item Value Reference Range Interpretation Comments Chloride Lvl (test code = Chloride Lvl) 105 95-109 [place] 871742-12-24 06:23:00 Test Item Value Reference Range Interpretation Comments CO2 (test code = CO2) 25 24-32 [facility] FallsRwzgmtuDABUONTYH2762-80-62 06:23:00 Test Item Value Reference Range Interpretation Comments Calcium Lvl (test code = Calcium Lvl) 8.6 8.5-10.5 [facility] FallsBwkqpjmWSGOJGEIC6041-19-77 06:23:00 Test Item Value Reference Range Interpretation Comments AGAP (test code = AGAP) 9.8 10.0-20.0 [facility] FallsLbkjznsPECAAAIFU8659-73-68 06:23:00 Test Item Value Reference Range Interpretation Comments eGFR (test code = eGFR) 92 [facility]zx[facility]cnrBHSBCSEAYR5398-11-85 06:23:00 Test Item Value Reference Range Interpretation Comments Segs (test code = Segs) 51.5 45.0-75.0 [facility] CenterQdwtzokWBARXHBKMH3470-58-15 06:23:00 Test Item Value Reference Range Interpretation Comments Lymphocytes (test code = Lymphocytes) 33.1 20.0-40.0 [place] 333252-12-24 06:23:00 Test Item Value Reference Range Interpretation Comments Monocytes (test code = Monocytes) 10.8 2.0-12.0 [place] 333252-12-24 06:23:00 Test Item Value Reference Range Interpretation Comments Eosinophils (test code = 2.9 See_Comment [A utomated message] The Eosinophils) system which ge nerated this result tra nsmitted reference range : <=4.0. The reference r bret was not used to int erpret this result as normal/abnormal . [facility] CenterRjczlwkOQSETAIFCT0185-33-38 06:23:00 Test Item Value Reference Range Interpretation Comments Basophils (test code = 1.7 See_Comment [Aut omated message] The Basophils) system which ge nerated this result tra nsmitted reference range : <=1.0. The reference r bret was not used to int erpret this result as normal/abnormal . [facility]2022-12-24 06:23:00 Test Item Value Reference Range Interpretation Comments BUN (test code = BUN) 16 7- [place] 333252-12-24 06:23:00 Test Item Value Reference Range Interpretation Comments Neutrophils # (test code = Neutrophils 2.8 1.5-8.1 #) [place] 333252-12-24 06:23:00 Test Item Value Reference Range Interpretation Comments Lymphocytes # (test code = Lymphocytes 1.8 1.0-5.5 #) [place] 333252-12-24 06:23:00 Test Item Value Reference Range Interpretation Comments Monocytes # (test code 0.6 See_Comment [Aut omated message] The = Monocytes #) system which generated this result tra nsmitted reference range : <=0.8. The reference r bret was not used to int erpret this result as normal/abnormal . [place] 333252-12-24 06:23:00 Test Item Value Reference Range Interpretation Comments Eosinophils # (test code 0.2 See_Comment [A utomated message] The = Eosinophils #) system whic h generated this result tra nsmitted reference range : <=0.5. The reference r bret was not used to int erpret this result as normal/abnormal . [place] 333252-12-24 06:23:00 Test Item Value Reference Range Interpretation Comments Basophils # (test code 0.1 See_Comment [Aut omated message] The = Basophils #) system which generated this result tra nsmitted reference range : <=0.2. The reference r bret was not used to int erpret this result as normal/abnormal . [place] 333252-12-24 06:23:00 Test Item Value Reference Range Interpretation Comments Anisocyte (test code = 1+ *ABN*(02/28/22 Anisocyte) 12:23 AM) [address]12-24 06:23:00 Test Item Value Reference Range Interpretation Comments WBC (test code = WBC) 5.5 3.7-10.[address] [facility], TxPrkgpibTIVOWHQVGZ2221-30-13 06:23:00 Test Item Value Reference Range Interpretation Comments RBC (test code = RBC) 3.35 4.70-6.[address] [facility], TxXuvwwthNYLGYJXDTD6714-72-75 06:23:00 Test Item Value Reference Range Interpretation Comments Hgb (test code = Hgb) 8.5 14.0-18.[address] [facility] [place], TxXmstkceEARJTDQPAO8028-68-17 06:23:00 Test Item Value Reference Range Interpretation Comments Hct (test code = Hct) 26.4 42.0-54.[address] [facility] [place], TxCHEM LLRMS1443-90-63 06:23:00 Test Item Value Reference Range Interpretation Comments Creatinine Lvl (test code = Creatinine 0.85 0.50-1.40 Lvl) [facility]KjsbungSBDEGJWJZT6350-26-26 06:23:00 Test Item Value Reference Range Interpretation Comments MCV (test code = MCV) 79.0 80.0-94.0 [facility] CenterVrdejvbWLWRBBFNQG1306-87-69 06:23:00 Test Item Value Reference Range Interpretation Comments MCH (test code = MCH) 25.5 pg 27.0-31.0 [facility]G58[facility]46 06:23:00 Test Item Value Reference Range Interpretation Comments MCHC (test code = MCHC) 32.3 32.0-36.0 [facility]XnzgqdwREWTRQVZPR8278-09-00 06:23:00 Test Item Value Reference Range Interpretation Comments RDW (test code = RDW) 21.3 11.5-14.[address] [facility] [place], TxEvgjqsaAOJKUMLBDO9503-71-70 06:23:00 Test Item Value Reference Range Interpretation Comments Platelet (test code = Platelet) 144 133-450 [facility] CenterBuahzdxIZPUFTKJSF2775-17-29 06:23:00 Test Item Value Reference Range Interpretation Comments MPV (test code = MPV) 9.0 7.4-10.4 [facility]ann[facility] UHHZESZ8864-24-10 06:23:00 Test Item Value Reference Range Interpretation Comments Ca Ion WB (test code = Ca Ion WB) 1.16 1.05-1.25 [facility]annPARATHYROID FUCHLXT5216-56-05 06:23:00 Test Item Value Reference Range Interpretation Comments Ca Ion at pH 7.4 WB (test code = Ca Ion 1.17 1.05-1.25 at pH 7.4 WB) [place] 114652-12-24 06:23:00 Test Item Value Reference Range Interpretation Comments Sodium Lvl (test code = Sodium Lvl) 136 135-145 [place] 114652-12-24 06:23:00 Test Item Value Reference Range Interpretation Comments Potassium Lvl (test code = Potassium 3.8 3.5-5.1 Lvl) [place] 114652-12-24 06:23:00 Test Item Value Reference Range Interpretation Comments Chloride Lvl (test code = Chloride Lvl) 105 95-109 [place] 114652-12-24 06:23:00 Test Item Value Reference Range Interpretation Comments CO2 (test code = CO2) 25 24-32 [place] 114652-12-24 06:23:00 Test Item Value Reference Range Interpretation Comments Calcium Lvl (test code = Calcium Lvl) 8.6 8.5-10.5 [place] 114652-12-24 06:23:00 Test Item Value Reference Range Interpretation Comments AGAP (test code = AGAP) 9.8 10.0-20.0 [place] 114652-12-24 06:23:00 Test Item Value Reference Range Interpretation Comments eGFR (test code = eGFR) 92 [place] 871742-12-24 06:23:00 Test Item Value Reference Range Interpretation Comments Ca Ion WB (test code = Ca Ion WB) 1.16 1.05-1.25 [place] [address]-12-24 06:23:00 Test Item Value Reference Range Interpretation Comments Ca Ion at pH 7.4 WB (test code = Ca Ion 1.17 1.05-1.25 at pH 7.4 WB) [place] [address]-12-24 06:23:00 Test Item Value Reference Range Interpretation Comments Phosphorus (test code = Phosphorus) 3.4 2.5-4.5 [place] 871742-12-24 06:23:00 Test Item Value Reference Range Interpretation Comments Magnesium Lvl (test code = Magnesium 2.0 1.8-2.4 Lvl) [place] 871742-12-24 06:23:00 Test Item Value Reference Range Interpretation Comments Glucose Lvl (test code = Glucose Lvl) 105 70-99 [facility] FallsQvecpdsKCSMLQTSP1788-09-96 06:23:00 Test Item Value Reference Range Interpretation Comments BUN (test code = BUN) 16 7-22 [facility] FallsFsdefkwOLUUVJNXD9408-56-48 06:23:00 Test Item Value Reference Range Interpretation Comments Creatinine Lvl (test code = Creatinine 0.85 0.50-1.40 Lvl) [facility] FallsJfwbaoeBWHIYVNVG2706-38-15 06:23:00 Test Item Value Reference Range Interpretation Comments Sodium Lvl (test code = Sodium Lvl) 136 135-145 [place] 871742-12-24 06:23:00 Test Item Value Reference Range Interpretation Comments Potassium Lvl (test code = Potassium 3.8 3.5-5.1 Lvl) [facility] FallsNutjydvJKRPHICEU8956-00-51 06:23:00 Test Item Value Reference Range Interpretation Comments Chloride Lvl (test code = Chloride Lvl) 105 95-109 [facility] FallsQwowcnlPIFBYDOYI7127-15-36 06:23:00 Test Item Value Reference Range Interpretation Comments CO2 (test code = CO2) 25 24-32 [place] 871742-12-24 06:23:00 Test Item Value Reference Range Interpretation Comments Calcium Lvl (test code = Calcium Lvl) 8.6 8.5-10.5 [facility] FallsLwhkcajIYPFJJGMC6441-47-60 06:23:00 Test Item Value Reference Range Interpretation Comments AGAP (test code = AGAP) 9.8 10.0-20.0 [facility] FallsUzhhqqrUIISCHVYF7766-43-30 06:23:00 Test Item Value Reference Range Interpretation Comments eGFR (test code = eGFR) 92 [facility] CenterNdwycljKGVFBZOQMR8601-09-39 06:23:00 Test Item Value Reference Range Interpretation Comments Segs (test code = Segs) 51.5 45.0-75.0 [place] 333252-12-24 06:23:00 Test Item Value Reference Range Interpretation Comments Lymphocytes (test code = Lymphocytes) 33.1 20.0-40.0 [place] 333252-12-24 06:23:00 Test Item Value Reference Range Interpretation Comments Monocytes (test code = Monocytes) 10.8 2.0-12.0 [place] 333252-12-24 06:23:00 Test Item Value Reference Range Interpretation Comments Eosinophils (test code = 2.9 See_Comment [A utomated message] The Eosinophils) system which ge nerated this result tra nsmitted reference range : <=4.0. The reference r bret was not used to int erpret this result as normal/abnormal . [place] 333252-12-24 06:23:00 Test Item Value Reference Range Interpretation Comments Basophils (test code = 1.7 See_Comment [Aut omated message] The Basophils) system which ge nerated this result tra nsmitted reference range : <=1.0. The reference r bret was not used to int erpret this result as normal/abnormal . [place] 333252-12-24 06:23:00 Test Item Value Reference Range Interpretation Comments Neutrophils # (test code = Neutrophils 2.8 1.5-8.1 #) [place] 333252-12-24 06:23:00 Test Item Value Reference Range Interpretation Comments Lymphocytes # (test code = Lymphocytes 1.8 1.0-5.5 #) [place] 333252-12-24 06:23:00 Test Item Value Reference Range Interpretation Comments Monocytes # (test code 0.6 See_Comment [Aut omated message] The = Monocytes #) system which generated this result tra nsmitted reference range : <=0.8. The reference r bret was not used to int erpret this result as normal/abnormal . [place] 333252-12-24 06:23:00 Test Item Value Reference Range Interpretation Comments Eosinophils # (test code 0.2 See_Comment [A utomated message] The = Eosinophils #) system wh h generated this result tra nsmitted reference range : <=0.5. The reference r bret was not used to int erpret this result as normal/abnormal . [place] 333252-12-24 06:23:00 Test Item Value Reference Range Interpretation Comments Basophils # (test code 0.1 See_Comment [Aut omated message] The = Basophils #) system which generated this result tra nsmitted reference range : <=0.2. The reference r bret was not used to int erpret this result as normal/abnormal . [place] 333252-12-24 06:23:00 Test Item Value Reference Range Interpretation Comments Anisocyte (test code = 1+ *ABN*(02/28/22 Anisocyte) 12:23 AM) [facility] CenterOwhrtmwNJDDBWNRHD9828-98-56 06:23:00 Test Item Value Reference Range Interpretation Comments WBC (test code = WBC) 5.5 3.7-10.4 [place] 333252-12-24 06:23:00 Test Item Value Reference Range Interpretation Comments RBC (test code = RBC) 3.35 4.70-6.10 [place] 333252-12-24 06:23:00 Test Item Value Reference Range Interpretation Comments Hgb (test code = Hgb) 8.5 14.0-18.0 [place] 333252-12-24 06:23:00 Test Item Value Reference Range Interpretation Comments Hct (test code = Hct) 26.4 42.0-54.0 [place] 333252-12-24 06:23:00 Test Item Value Reference Range Interpretation Comments MCV (test code = MCV) 79.0 80.0-94.0 [facility] CenterAyfhpsaXGFQVAKCWQ1519-95-61 06:23:00 Test Item Value Reference Range Interpretation Comments MCH (test code = MCH) 25.5 pg 27.0-31.0 [facility] CenterNtuouebIFZABFAVND3778-92-84 06:23:00 Test Item Value Reference Range Interpretation Comments MCHC (test code = MCHC) 32.3 32.0-36.0 [place] 333252-12-24 06:23:00 Test Item Value Reference Range Interpretation Comments RDW (test code = RDW) 21.3 11.5-14.5 [place] 333252-12-24 06:23:00 Test Item Value Reference Range Interpretation Comments Platelet (test code = Platelet) 144 133-450 [facility] CenterKhvgeejJXGOSAHXPH6706-85-45 06:23:00 Test Item Value Reference Range Interpretation Comments MPV (test code = MPV) 9.0 7.4-10.4 [facility] FYGZLLT5192-50-17 06:23:00 Test Item Value Reference Range Interpretation Comments Ca Ion WB (test code = Ca Ion WB) 1.16 1.05-1.25 [facility]2022-12-24 06:23:00 Test Item Value Reference Range Interpretation Comments Ca Ion at pH 7.4 WB (test code = Ca Ion 1.17 1.05-1.25 at pH 7.4 WB) [facility]2022-12-24 06:23:00 Test Item Value Reference Range Interpretation Comments Phosphorus (test code = Phosphorus) 3.4 2.5-4.5 [place] 114652-12-24 06:23:00 Test Item Value Reference Range Interpretation Comments Magnesium Lvl (test code = Magnesium 2.0 1.8-2.4 Lvl) [facility]2022-12-24 06:23:00 Test Item Value Reference Range Interpretation Comments Glucose Lvl (test code = Glucose Lvl) 105 70-99 [place] 114652-12-24 06:23:00 Test Item Value Reference Range Interpretation Comments BUN (test code = BUN) 16 7-22 [place] 114652-12-24 06:23:00 Test Item Value Reference Range Interpretation Comments Creatinine Lvl (test code = Creatinine 0.85 0.50-1.40 Lvl) [facility]2022-12-24 06:23:00 Test Item Value Reference Range Interpretation Comments Sodium Lvl (test code = Sodium Lvl) 136 135-145 [place] 114652-12-24 06:23:00 Test Item Value Reference Range Interpretation Comments Potassium Lvl (test code = Potassium 3.8 3.5-5.1 Lvl) [place] 114652-12-24 06:23:00 Test Item Value Reference Range Interpretation Comments Chloride Lvl (test code = Chloride Lvl) 105 95-109 [place] 114652-12-24 06:23:00 Test Item Value Reference Range Interpretation Comments CO2 (test code = CO2) 25 24-32 [place] 114652-12-24 06:23:00 Test Item Value Reference Range Interpretation Comments Calcium Lvl (test code = Calcium Lvl) 8.6 8.5-10.5 [place] 114652-12-24 06:23:00 Test Item Value Reference Range Interpretation Comments AGAP (test code = AGAP) 9.8 10.0-20.0 [place] 114652-12-24 06:23:00 Test Item Value Reference Range Interpretation Comments eGFR (test code = eGFR) 92 [facility] FallsBojfwkdXQLPKGXFT6901-03-10 06:23:00 Test Item Value Reference Range Interpretation Comments Ca Ion WB (test code = Ca Ion WB) 1.16 1.05-1.25 [facility] FallsEywaxzqZUJYXFOJC2599-05-86 06:23:00 Test Item Value Reference Range Interpretation Comments Ca Ion at pH 7.4 WB (test code = Ca Ion 1.17 1.05-1.25 at pH 7.4 WB) [facility] FallsChyjpneKXFUWZUVF9378-61-30 06:23:00 Test Item Value Reference Range Interpretation Comments Phosphorus (test code = Phosphorus) 3.4 2.5-4.5 [facility] FallsVbptwhuUKTJFWNVI9519-27-61 06:23:00 Test Item Value Reference Range Interpretation Comments Magnesium Lvl (test code = Magnesium 2.0 1.8-2.4 Lvl) [facility] FallsAkwjiwpITCBZDCQB9719-59-70 06:23:00 Test Item Value Reference Range Interpretation Comments Glucose Lvl (test code = Glucose Lvl) 105 70-99 [facility] FallsGqupmfwYKFZLUTEK0757-36-22 06:23:00 Test Item Value Reference Range Interpretation Comments BUN (test code = BUN) 16 - [facility] FallsBgwvafdXVDSKKUXF6867-19-44 06:23:00 Test Item Value Reference Range Interpretation Comments Creatinine Lvl (test code = Creatinine 0.85 0.50-1.40 Lvl) [facility] FallsIxzbrytOVHRTZOEB5117-65-10 06:23:00 Test Item Value Reference Range Interpretation Comments Sodium Lvl (test code = Sodium Lvl) 136 135-145 [facility] FallsDtgngsfIGICJXVRQ8182-49-01 06:23:00 Test Item Value Reference Range Interpretation Comments Potassium Lvl (test code = Potassium 3.8 3.5-5.1 Lvl) [facility] FallsHwygonxSBIHHRVLV0098-16-80 06:23:00 Test Item Value Reference Range Interpretation Comments Chloride Lvl (test code = Chloride Lvl) 105 95-109 [place] 871742-12-24 06:23:00 Test Item Value Reference Range Interpretation Comments CO2 (test code = CO2) 25 24-32 [facility] FallsYeqdtrwUFPNQQHUQ8625-77-66 06:23:00 Test Item Value Reference Range Interpretation Comments Calcium Lvl (test code = Calcium Lvl) 8.6 8.5-10.5 [place] 871742-12-24 06:23:00 Test Item Value Reference Range Interpretation Comments AGAP (test code = AGAP) 9.8 10.0-20.0 [place] 871742-12-24 06:23:00 Test Item Value Reference Range Interpretation Comments eGFR (test code = eGFR) 92 [place] 333252-12-24 06:23:00 Test Item Value Reference Range Interpretation Comments Segs (test code = Segs) 51.5 45.0-75.0 [place] 333252-12-24 06:23:00 Test Item Value Reference Range Interpretation Comments Lymphocytes (test code = Lymphocytes) 33.1 20.0-40.0 [place] 333252-12-24 06:23:00 Test Item Value Reference Range Interpretation Comments Monocytes (test code = Monocytes) 10.8 2.0-12.0 [place] 333252-12-24 06:23:00 Test Item Value Reference Range Interpretation Comments Eosinophils (test code = 2.9 See_Comment [A utomated message] The Eosinophils) system which ge nerated this result tra nsmitted reference range : <=4.0. The reference r bret was not used to int erpret this result as normal/abnormal . [place] 333252-12-24 06:23:00 Test Item Value Reference Range Interpretation Comments Basophils (test code = 1.7 See_Comment [Aut omated message] The Basophils) system which ge nerated this result tra nsmitted reference range : <=1.0. The reference r bret was not used to int erpret this result as normal/abnormal . [place] 333252-12-24 06:23:00 Test Item Value Reference Range Interpretation Comments Neutrophils # (test code = Neutrophils 2.8 1.5-8.1 #) [place] 333252-12-24 06:23:00 Test Item Value Reference Range Interpretation Comments Lymphocytes # (test code = Lymphocytes 1.8 1.0-5.5 #) [place] 333252-12-24 06:23:00 Test Item Value Reference Range Interpretation Comments Monocytes # (test code 0.6 See_Comment [Aut omated message] The = Monocytes #) system which generated this result tra nsmitted reference range : <=0.8. The reference r bret was not used to int erpret this result as normal/abnormal . [facility] CenterWjridtkQRVSTATOXP9398-87-55 06:23:00 Test Item Value Reference Range Interpretation Comments Eosinophils # (test code 0.2 See_Comment [A utomated message] The = Eosinophils #) system whic h generated this result tra nsmitted reference range : <=0.5. The reference r bret was not used to int erpret this result as normal/abnormal . [facility] CenterVjrvuxwWYRSCRMSBF7538-46-47 06:23:00 Test Item Value Reference Range Interpretation Comments Basophils # (test code 0.1 See_Comment [Aut omated message] The = Basophils #) system which generated this result tra nsmitted reference range : <=0.2. The reference r bret was not used to int erpret this result as normal/abnormal . [place] 333252-12-24 06:23:00 Test Item Value Reference Range Interpretation Comments Anisocyte (test code = 1+ *ABN*(02/28/22 Anisocyte) 12:23 AM) [place] 333252-12-24 06:23:00 Test Item Value Reference Range Interpretation Comments WBC (test code = WBC) 5.5 3.7-10.4 [place] 333252-12-24 06:23:00 Test Item Value Reference Range Interpretation Comments RBC (test code = RBC) 3.35 4.70-6.10 [place] 333252-12-24 06:23:00 Test Item Value Reference Range Interpretation Comments Hgb (test code = Hgb) 8.5 14.0-18.0 [place] 333252-12-24 06:23:00 Test Item Value Reference Range Interpretation Comments Hct (test code = Hct) 26.4 42.0-54.0 [place] 333252-12-24 06:23:00 Test Item Value Reference Range Interpretation Comments MCV (test code = MCV) 79.0 80.0-94.0 [place] 333252-12-24 06:23:00 Test Item Value Reference Range Interpretation Comments MCH (test code = MCH) 25.5 pg 27.0-31.0 [place] 333252-12-24 06:23:00 Test Item Value Reference Range Interpretation Comments MCHC (test code = MCHC) 32.3 32.0-36.0 [place] 333252-12-24 06:23:00 Test Item Value Reference Range Interpretation Comments RDW (test code = RDW) 21.3 11.5-14.5 [place] 333252-12-24 06:23:00 Test Item Value Reference Range Interpretation Comments Platelet (test code = Platelet) 144 133-450 [facility] CenterSorvqxiNSAEQAIRAR3482-85-72 06:23:00 Test Item Value Reference Range Interpretation Comments MPV (test code = MPV) 9.0 7.4-10.4 [facility]2022-12-24 06:23:00 Test Item Value Reference Range Interpretation Comments Ca Ion WB (test code = Ca Ion WB) 1.16 1.05-1.25 [place] 061962-12-24 06:23:00 Test Item Value Reference Range Interpretation Comments Ca Ion at pH 7.4 WB (test code = Ca Ion 1.17 1.05-1.25 at pH 7.4 WB) [place] [id number] 15:01:18 Test Item Value Reference Range Interpretation Comments RADRPT (test code EXAM: XR CHEST 1 VIEWDATE: = RADRPT) 02/26/2022 18:16INDICATION: - acsCOMPARISON: April 06, 2021.TECHNIQUE: AP chest.IMPRESSION: Lines/tubes: There is a left-sided ICD/pacemaker with its leads projecting over the right atrium and right ventricle.Heart and mediastinum: The cardiomediastinal silhouette is stable. Aortic vascular wall calcifications are noted. Lungs: There is a background of emphysema. The lungs are otherwise clear.Pleura: The costophrenic sulci are sharp without evidence of pleural effusion. No pneumothorax is identified on this portable radiograph.Bones and soft tissues: The regional skeleton is unchanged. [place] 42448022-12-23 15:01:18 Test Item Value Reference Range Interpretation Comments RADRPT (test code EXAM: XR CHEST 1 VIEWDATE: = RADRPT) 02/26/2022 18:16INDICATION: - acsCOMPARISON: April 06, 2021.TECHNIQUE: AP chest.IMPRESSION: Lines/tubes: There is a left-sided ICD/pacemaker with its leads projecting over the right atrium and right ventricle.Heart and mediastinum: The cardiomediastinal silhouette is stable. Aortic vascular wall calcifications are noted. Lungs: There is a background of emphysema. The lungs are otherwise clear.Pleura: The costophrenic sulci are sharp without evidence of pleural effusion. No pneumothorax is identified on this portable radiograph.Bones and soft tissues: The regional skeleton is unchanged. [place] [id number] 15:01:18 Test Item Value Reference Range Interpretation Comments RADRPT (test code EXAM: XR CHEST 1 VIEWDATE: = RADRPT) 02/26/2022 18:16INDICATION: - acsCOMPARISON: April 06, 2021.TECHNIQUE: AP chest.IMPRESSION: Lines/tubes: There is a left-sided ICD/pacemaker with its leads projecting over the right atrium and right ventricle.Heart and mediastinum: The cardiomediastinal silhouette is stable. Aortic vascular wall calcifications are noted. Lungs: There is a background of emphysema. The lungs are otherwise clear.Pleura: The costophrenic sulci are sharp without evidence of pleural effusion. No pneumothorax is identified on this portable radiograph.Bones and soft tissues: The regional skeleton is unchanged. [facility] [place], TxContent [facility]enB[facility] AFOAZFC0167-00-45 14:59:00 Test Item Value Reference Range Interpretation Comments HS Troponin I (test code = HS Troponin 20 I) [facility] FallsEzxnuafXBWPGKEUM5351-08-53 14:59:00 Test Item Value Reference Range Interpretation Comments HS Troponin I (test code = HS Troponin 20 I) [facility] UZJTQBB0590-76-22 14:59:00 Test Item Value Reference Range Interpretation Comments HS Troponin I (test code = HS Troponin 20 I) [facility] FallsYbsykivRGCMEPKAV1943-04-75 14:59:00 Test Item Value Reference Range Interpretation Comments HS Troponin I (test code = HS Troponin 20 I) [facility] WDGVFAZ4634-13-05 14:59:00 Test Item Value Reference Range Interpretation Comments HS Troponin I (test code = HS Troponin 20 I) [facility] FallsBwxvjlsWUJYRGGGO8184-65-87 14:59:00 Test Item Value Reference Range Interpretation Comments HS Troponin I (test code = HS Troponin 20 I) [facility]2022-12-23 06:11:00 Test Item Value Reference Range Interpretation Comments Iron (test code = Iron) 34 [facility]2022-12-23 06:11:00 Test Item Value Reference Range Interpretation Comments TIBC (test code = TIBC) 383 [facility]2022-12-23 06:11:00 Test Item Value Reference Range Interpretation Comments % Satur Fe (test code = % Satur Fe) 9 [facility]2022-12-23 06:11:00 Test Item Value Reference Range Interpretation Comments Ferritin Lvl (test code = Ferritin Lvl) 10 22-275 [place] 114652-12-23 06:11:00 Test Item Value Reference Range Interpretation Comments Glucose Lvl (test code = Glucose Lvl) 108 70-99 [place] 114652-12-23 06:11:00 Test Item Value Reference Range Interpretation Comments BUN (test code = BUN) 14 7- [place] 114652-12-23 06:11:00 Test Item Value Reference Range Interpretation Comments Creatinine Lvl (test code = Creatinine 0.87 0.50-1.40 Lvl) [facility]2022-12-23 06:11:00 Test Item Value Reference Range Interpretation Comments Sodium Lvl (test code = Sodium Lvl) 137 135-145 [place] 114652-12-23 06:11:00 Test Item Value Reference Range Interpretation Comments Potassium Lvl (test code = Potassium 3.8 3.5-5.1 Lvl) [place] 114652-12-23 06:11:00 Test Item Value Reference Range Interpretation Comments Chloride Lvl (test code = Chloride Lvl) 103 95-109 [place] 114652-12-23 06:11:00 Test Item Value Reference Range Interpretation Comments CO2 (test code = CO2) 27 24-32 [place] 114652-12-23 06:11:00 Test Item Value Reference Range Interpretation Comments Calcium Lvl (test code = Calcium Lvl) 9.1 8.5-10.5 [place] 114652-12-23 06:11:00 Test Item Value Reference Range Interpretation Comments AGAP (test code = AGAP) 10.8 10.0-20.0 [place] 114652-12-23 06:11:00 Test Item Value Reference Range Interpretation Comments eGFR (test code = eGFR) 91 [facility]2022-12-23 06:11:00 Test Item Value Reference Range Interpretation Comments Magnesium Lvl (test code = Magnesium 1.8 1.8-2.4 Lvl) [facility]2022-12-23 06:11:00 Test Item Value Reference Range Interpretation Comments Phosphorus (test code = Phosphorus) 3.6 2.5-4.5 [place] 871742-12-23 06:11:00 Test Item Value Reference Range Interpretation Comments Iron (test code = Iron) 34 50-180 [place] [address]-12-23 06:11:00 Test Item Value Reference Range Interpretation Comments TIBC (test code = TIBC) 383 250-425 [place] 871742-12-23 06:11:00 Test Item Value Reference Range Interpretation Comments % Satur Fe (test code = % Satur Fe) 9 20-48 [place] 871742-12-23 06:11:00 Test Item Value Reference Range Interpretation Comments Ferritin Lvl (test code = Ferritin Lvl) 10 22-275 [place] [address]-12-23 06:11:00 Test Item Value Reference Range Interpretation Comments PT (test code = PT) 14.0 s 12.0-14.7 [place] [address]-12-23 06:11:00 Test Item Value Reference Range Interpretation Comments INR (test code = INR) 1.08 1 0.85-1.17 [place] [address]-12-23 06:11:00 Test Item Value Reference Range Interpretation Comments PTT (test code = PTT) 29.7 s 22.9-35.8 [place] [address]-12-23 06:11:00 Test Item Value Reference Range Interpretation Comments WBC (test code = WBC) 5.6 3.7-10.4 [place] [address]-12-23 06:11:00 Test Item Value Reference Range Interpretation Comments RBC (test code = RBC) 3.26 4.70-6.10 [place] [address]-12-23 06:11:00 Test Item Value Reference Range Interpretation Comments Hgb (test code = Hgb) 8.3 14.0-18.0 [place] 333252-12-23 06:11:00 Test Item Value Reference Range Interpretation Comments Hct (test code = Hct) 25.9 42.0-54.0 [place] 333252-12-23 06:11:00 Test Item Value Reference Range Interpretation Comments MCV (test code = MCV) 79.5 80.0-94.0 [place] [address]-12-23 06:11:00 Test Item Value Reference Range Interpretation Comments MCH (test code = MCH) 25.5 pg 27.0-31.0 [place] [address]-12-23 06:11:00 Test Item Value Reference Range Interpretation Comments MCHC (test code = MCHC) 32.1 32.0-36.0 [place] 333252-12-23 06:11:00 Test Item Value Reference Range Interpretation Comments RDW (test code = RDW) 21.9 11.5-14.5 [place] 333252-12-23 06:11:00 Test Item Value Reference Range Interpretation Comments Platelet (test code = Platelet) 143 133-450 [place] 333252-12-23 06:11:00 Test Item Value Reference Range Interpretation Comments MPV (test code = MPV) 9.2 7.4-10.4 [place] 333252-12-23 06:11:00 Test Item Value Reference Range Interpretation Comments Segs (test code = Segs) 54.7 45.0-75.0 [place] 333252-12-23 06:11:00 Test Item Value Reference Range Interpretation Comments Lymphocytes (test code = Lymphocytes) 31.7 20.0-40.0 [place] 333252-12-23 06:11:00 Test Item Value Reference Range Interpretation Comments Monocytes (test code = Monocytes) 8.9 2.0-12.0 [place] [address]-12-23 06:11:00 Test Item Value Reference Range Interpretation Comments Eosinophils (test code = 2.8 See_Comment [A utomated message] The Eosinophils) system which ge nerated this result tra nsmitted reference range : <=4.0. The reference r bret was not used to int erpret this result as normal/abnormal . [place] 333252-12-23 06:11:00 Test Item Value Reference Range Interpretation Comments Basophils (test code = 1.9 See_Comment [Aut omated message] The Basophils) system which ge nerated this result tra nsmitted reference range : <=1.0. The reference r bret was not used to int erpret this result as normal/abnormal . [place] [address]-12-23 06:11:00 Test Item Value Reference Range Interpretation Comments Neutrophils # (test code = Neutrophils 3.0 1.5-8.1 #) [place] 333252-12-23 06:11:00 Test Item Value Reference Range Interpretation Comments Lymphocytes # (test code = Lymphocytes 1.8 1.0-5.5 #) [address]12-23 06:11:00 Test Item Value Reference Range Interpretation Comments Monocytes # (test code 0.5 See_Comment [Aut omated message] The = Monocytes #) system which generated this result tra nsmitted reference range : <=0.8. The reference r bret was not used to int erpret this result as normal/abnormal . [place] 333252-12-23 06:11:00 Test Item Value Reference Range Interpretation Comments Eosinophils # (test code 0.2 See_Comment [A utomated message] The = Eosinophils #) system whic h generated this result tra nsmitted reference range : <=0.5. The reference r bret was not used to int erpret this result as normal/abnormal . [place] [address]-12-23 06:11:00 Test Item Value Reference Range Interpretation Comments Basophils # (test code 0.1 See_Comment [Aut omated message] The = Basophils #) system which generated this result tra nsmitted reference range : <=0.2. The reference r bret was not used to int erpret this result as normal/abnormal . [place] 333252-12-23 06:11:00 Test Item Value Reference Range Interpretation Comments Anisocyte (test code = 1+ *ABN*(02/27/22 Anisocyte) 12:11 AM) [place] 061962-12-23 06:11:00 Test Item Value Reference Range Interpretation Comments Ca Ion WB (test code = Ca Ion WB) 1.19 1.05-1.25 [place] 061962-12-23 06:11:00 Test Item Value Reference Range Interpretation Comments Ca Ion at pH 7.4 WB (test code = Ca Ion 1.20 1.05-1.25 at pH 7.4 WB) [facility]2022-12-23 06:11:00 Test Item Value Reference Range Interpretation Comments Iron (test code = Iron) 34 [place] 532232-12-23 06:11:00 Test Item Value Reference Range Interpretation Comments TIBC (test code = TIBC) 383 [place] 532232-12-23 06:11:00 Test Item Value Reference Range Interpretation Comments % Satur Fe (test code = % Satur Fe) 9 [place] 532232-12-23 06:11:00 Test Item Value Reference Range Interpretation Comments Ferritin Lvl (test code = Ferritin Lvl) 10 22-275 [place] 114652-12-23 06:11:00 Test Item Value Reference Range Interpretation Comments Glucose Lvl (test code = Glucose Lvl) 108 70-99 [place] 114652-12-23 06:11:00 Test Item Value Reference Range Interpretation Comments BUN (test code = BUN) 14 09-26 [place] 114652-12-23 06:11:00 Test Item Value Reference Range Interpretation Comments Creatinine Lvl (test code = Creatinine 0.87 0.50-1.40 Lvl) [place] 114652-12-23 06:11:00 Test Item Value Reference Range Interpretation Comments Sodium Lvl (test code = Sodium Lvl) 137 135-145 [place] 114652-12-23 06:11:00 Test Item Value Reference Range Interpretation Comments Potassium Lvl (test code = Potassium 3.8 3.5-5.1 Lvl) [place] 114652-12-23 06:11:00 Test Item Value Reference Range Interpretation Comments Chloride Lvl (test code = Chloride Lvl) 103 95-109 [place] 114652-12-23 06:11:00 Test Item Value Reference Range Interpretation Comments CO2 (test code = CO2) 27 24-32 [place] 114652-12-23 06:11:00 Test Item Value Reference Range Interpretation Comments Calcium Lvl (test code = Calcium Lvl) 9.1 8.5-10.5 [place] 114652-12-23 06:11:00 Test Item Value Reference Range Interpretation Comments AGAP (test code = AGAP) 10.8 10.0-20.0 [place] 114652-12-23 06:11:00 Test Item Value Reference Range Interpretation Comments eGFR (test code = eGFR) 91 [place] 114652-12-23 06:11:00 Test Item Value Reference Range Interpretation Comments Magnesium Lvl (test code = Magnesium 1.8 1.8-2.4 Lvl) [place] 114652-12-23 06:11:00 Test Item Value Reference Range Interpretation Comments Phosphorus (test code = Phosphorus) 3.6 2.5-4.[address]12-23 06:11:00 Test Item Value Reference Range Interpretation Comments Iron (test code = Iron) 34 50-180 [address]12-23 06:11:00 Test Item Value Reference Range Interpretation Comments TIBC (test code = TIBC) 383 250-425 [place] 871742-12-23 06:11:00 Test Item Value Reference Range Interpretation Comments % Satur Fe (test code = % Satur Fe) 9 20-48 [place] [address]-12-23 06:11:00 Test Item Value Reference Range Interpretation Comments Ferritin Lvl (test code = Ferritin Lvl) 10 22-275 [place] [address]-12-23 06:11:00 Test Item Value Reference Range Interpretation Comments PT (test code = PT) 14.0 s 12.0-14.[address]12-23 06:11:00 Test Item Value Reference Range Interpretation Comments INR (test code = INR) 1.08 1 0.85-1.17 [place] [address]-12-23 06:11:00 Test Item Value Reference Range Interpretation Comments PTT (test code = PTT) 29.7 s 22.9-35.[address]12-23 06:11:00 Test Item Value Reference Range Interpretation Comments WBC (test code = WBC) 5.6 3.7-10.4 [place] [address]-12-23 06:11:00 Test Item Value Reference Range Interpretation Comments RBC (test code = RBC) 3.26 4.70-6.10 [place] [address]-12-23 06:11:00 Test Item Value Reference Range Interpretation Comments Hgb (test code = Hgb) 8.3 14.0-18.0 [place] 333252-12-23 06:11:00 Test Item Value Reference Range Interpretation Comments Hct (test code = Hct) 25.9 42.0-54.0 [place] 333252-12-23 06:11:00 Test Item Value Reference Range Interpretation Comments MCV (test code = MCV) 79.5 80.0-94.0 [place] 333252-12-23 06:11:00 Test Item Value Reference Range Interpretation Comments MCH (test code = MCH) 25.5 pg 27.0-31.0 [place] 333252-12-23 06:11:00 Test Item Value Reference Range Interpretation Comments MCHC (test code = MCHC) 32.1 32.0-36.0 [id number] 06:11:00 Test Item Value Reference Range Interpretation Comments RDW (test code = RDW) 21.9 11.5-14.5 [facility] CenterHjuperhNDSBOWJENM6402-68-16 06:11:00 Test Item Value Reference Range Interpretation Comments Platelet (test code = Platelet) 143 133-450 [facility] CenterQtglzioXNCNHRYMWF7232-21-51 06:11:00 Test Item Value Reference Range Interpretation Comments MPV (test code = MPV) 9.2 7.4-10.4 [place] [address]-12-23 06:11:00 Test Item Value Reference Range Interpretation Comments Segs (test code = Segs) 54.7 45.0-75.0 [place] 333252-12-23 06:11:00 Test Item Value Reference Range Interpretation Comments Lymphocytes (test code = Lymphocytes) 31.7 20.0-40.0 [place] [address]-12-23 06:11:00 Test Item Value Reference Range Interpretation Comments Monocytes (test code = Monocytes) 8.9 2.0-12.0 [place] 333252-12-23 06:11:00 Test Item Value Reference Range Interpretation Comments Eosinophils (test code = 2.8 See_Comment [A utomated message] The Eosinophils) system which ge nerated this result tra nsmitted reference range : <=4.0. The reference r bret was not used to int erpret this result as normal/abnormal . [place] 333252-12-23 06:11:00 Test Item Value Reference Range Interpretation Comments Basophils (test code = 1.9 See_Comment [Aut omated message] The Basophils) system which ge nerated this result tra nsmitted reference range : <=1.0. The reference r bret was not used to int erpret this result as normal/abnormal . [place] 333252-12-23 06:11:00 Test Item Value Reference Range Interpretation Comments Neutrophils # (test code = Neutrophils 3.0 1.5-8.1 #) [place] 333252-12-23 06:11:00 Test Item Value Reference Range Interpretation Comments Lymphocytes # (test code = Lymphocytes 1.8 1.0-5.5 #) [place] 333252-12-23 06:11:00 Test Item Value Reference Range Interpretation Comments Monocytes # (test code 0.5 See_Comment [Aut omated message] The = Monocytes #) system which generated this result tra nsmitted reference range : <=0.8. The reference r bret was not used to int erpret this result as normal/abnormal . [facility] CenterJcvtgdyGVAACWKXXG8996-83-95 06:11:00 Test Item Value Reference Range Interpretation Comments Eosinophils # (test code 0.2 See_Comment [A utomated message] The = Eosinophils #) system whic h generated this result tra nsmitted reference range : <=0.5. The reference r brte was not used to int erpret this result as normal/abnormal . [place] 333252-12-23 06:11:00 Test Item Value Reference Range Interpretation Comments Basophils # (test code 0.1 See_Comment [Aut omated message] The = Basophils #) system which generated this result tra nsmitted reference range : <=0.2. The reference r bret was not used to int erpret this result as normal/abnormal . [facility] CenterVpbgsvlKUKRNPRSUK8747-67-77 06:11:00 Test Item Value Reference Range Interpretation Comments Anisocyte (test code = 1+ *ABN*(02/27/22 Anisocyte) 12:11 AM) [facility]2022-12-23 06:11:00 Test Item Value Reference Range Interpretation Comments Ca Ion WB (test code = Ca Ion WB) 1.19 1.05-1.[address] [facility] [place] [id number] 06:11:00 Test Item Value Reference Range Interpretation Comments Ca Ion at pH 7.4 WB (test code = Ca Ion 1.20 1.05-1.25 at pH 7.4 WB) [facility]2022-12-23 06:11:00 Test Item Value Reference Range Interpretation Comments Iron (test code = Iron) 34 [facility]2022-12-23 06:11:00 Test Item Value Reference Range Interpretation Comments TIBC (test code = TIBC) 383 [facility]2022-12-23 06:11:00 Test Item Value Reference Range Interpretation Comments % Satur Fe (test code = % Satur Fe) 9 [facility]2022-12-23 06:11:00 Test Item Value Reference Range Interpretation Comments Ferritin Lvl (test code = Ferritin Lvl) 10 22-275 [facility]2022-12-23 06:11:00 Test Item Value Reference Range Interpretation Comments Glucose Lvl (test code = Glucose Lvl) 108 70-99 [facility]2022-12-23 06:11:00 Test Item Value Reference Range Interpretation Comments BUN (test code = BUN) 14 7-22 [facility]2022-12-23 06:11:00 Test Item Value Reference Range Interpretation Comments Creatinine Lvl (test code = Creatinine 0.87 0.50-1.40 Lvl) [facility]2022-12-23 06:11:00 Test Item Value Reference Range Interpretation Comments Sodium Lvl (test code = Sodium Lvl) 137 135-145 [place] 114652-12-23 06:11:00 Test Item Value Reference Range Interpretation Comments Potassium Lvl (test code = Potassium 3.8 3.5-5.1 Lvl) [place] 114652-12-23 06:11:00 Test Item Value Reference Range Interpretation Comments Chloride Lvl (test code = Chloride Lvl) 103 95-109 [facility]2022-12-23 06:11:00 Test Item Value Reference Range Interpretation Comments CO2 (test code = CO2) 27 24-32 [place] 114652-12-23 06:11:00 Test Item Value Reference Range Interpretation Comments Calcium Lvl (test code = Calcium Lvl) 9.1 8.5-10.5 [place] 114652-12-23 06:11:00 Test Item Value Reference Range Interpretation Comments AGAP (test code = AGAP) 10.8 10.0-20.0 [place] 114652-12-23 06:11:00 Test Item Value Reference Range Interpretation Comments eGFR (test code = eGFR) 91 [place] 114652-12-23 06:11:00 Test Item Value Reference Range Interpretation Comments Magnesium Lvl (test code = Magnesium 1.8 1.8-2.4 Lvl) [place] 114652-12-23 06:11:00 Test Item Value Reference Range Interpretation Comments Phosphorus (test code = Phosphorus) 3.6 2.5-4.5 [place] 871742-12-23 06:11:00 Test Item Value Reference Range Interpretation Comments Iron (test code = Iron) 34 50-180 [place] 871742-12-23 06:11:00 Test Item Value Reference Range Interpretation Comments TIBC (test code = TIBC) 383 250-425 [address]12-23 06:11:00 Test Item Value Reference Range Interpretation Comments % Satur Fe (test code = % Satur Fe) 9 20-48 [place] 871742-12-23 06:11:00 Test Item Value Reference Range Interpretation Comments Ferritin Lvl (test code = Ferritin Lvl) 10 22-275 [place] 333252-12-23 06:11:00 Test Item Value Reference Range Interpretation Comments PT (test code = PT) 14.0 s 12.0-14.7 [place] [address]-12-23 06:11:00 Test Item Value Reference Range Interpretation Comments INR (test code = INR) 1.08 1 0.85-1.17 [place] 333252-12-23 06:11:00 Test Item Value Reference Range Interpretation Comments PTT (test code = PTT) 29.7 s 22.9-35.8 [place] 333252-12-23 06:11:00 Test Item Value Reference Range Interpretation Comments WBC (test code = WBC) 5.6 3.7-10.4 [place] 333252-12-23 06:11:00 Test Item Value Reference Range Interpretation Comments RBC (test code = RBC) 3.26 4.70-6.10 [place] 333252-12-23 06:11:00 Test Item Value Reference Range Interpretation Comments Hgb (test code = Hgb) 8.3 14.0-18.0 [place] [address]-12-23 06:11:00 Test Item Value Reference Range Interpretation Comments Hct (test code = Hct) 25.9 42.0-54.0 [place] [address]-12-23 06:11:00 Test Item Value Reference Range Interpretation Comments MCV (test code = MCV) 79.5 80.0-94.0 [place] [address]-12-23 06:11:00 Test Item Value Reference Range Interpretation Comments MCH (test code = MCH) 25.5 pg 27.0-31.0 [place] 333252-12-23 06:11:00 Test Item Value Reference Range Interpretation Comments MCHC (test code = MCHC) 32.1 32.0-36.0 [place] 333252-12-23 06:11:00 Test Item Value Reference Range Interpretation Comments RDW (test code = RDW) 21.9 11.5-14.5 [place] 333252-12-23 06:11:00 Test Item Value Reference Range Interpretation Comments Platelet (test code = Platelet) 143 133-450 [facility] CenterNalvljdKTNTGNGFMX4306-97-80 06:11:00 Test Item Value Reference Range Interpretation Comments MPV (test code = MPV) 9.2 7.4-10.4 [place] 333252-12-23 06:11:00 Test Item Value Reference Range Interpretation Comments Segs (test code = Segs) 54.7 45.0-75.0 [place] [address]-12-23 06:11:00 Test Item Value Reference Range Interpretation Comments Lymphocytes (test code = Lymphocytes) 31.7 20.0-40.0 [place] [address]-12-23 06:11:00 Test Item Value Reference Range Interpretation Comments Monocytes (test code = Monocytes) 8.9 2.0-12.0 [place] 333252-12-23 06:11:00 Test Item Value Reference Range Interpretation Comments Eosinophils (test code = 2.8 See_Comment [A utomated message] The Eosinophils) system which ge nerated this result tra nsmitted reference range : <=4.0. The reference r bret was not used to int erpret this result as normal/abnormal . [place] [address]-12-23 06:11:00 Test Item Value Reference Range Interpretation Comments Basophils (test code = 1.9 See_Comment [Aut omated message] The Basophils) system which ge nerated this result tra nsmitted reference range : <=1.0. The reference r bret was not used to int erpret this result as normal/abnormal . [place] 333252-12-23 06:11:00 Test Item Value Reference Range Interpretation Comments Neutrophils # (test code = Neutrophils 3.0 1.5-8.1 #) [address]12-23 06:11:00 Test Item Value Reference Range Interpretation Comments Lymphocytes # (test code = Lymphocytes 1.8 1.0-5.5 #) [place] [address]-12-23 06:11:00 Test Item Value Reference Range Interpretation Comments Monocytes # (test code 0.5 See_Comment [Aut omated message] The = Monocytes #) system which generated this result tra nsmitted reference range : <=0.8. The reference r bret was not used to int erpret this result as normal/abnormal . [place] [address]-12-23 06:11:00 Test Item Value Reference Range Interpretation Comments Eosinophils # (test code 0.2 See_Comment [A utomated message] The = Eosinophils #) system whic h generated this result tra nsmitted reference range : <=0.5. The reference r bret was not used to int erpret this result as normal/abnormal . [place] [address]-12-23 06:11:00 Test Item Value Reference Range Interpretation Comments Basophils # (test code 0.1 See_Comment [Aut omated message] The = Basophils #) system which generated this result tra nsmitted reference range : <=0.2. The reference r bret was not used to int erpret this result as normal/abnormal . [place] [address]-12-23 06:11:00 Test Item Value Reference Range Interpretation Comments Anisocyte (test code = 1+ *ABN*(02/27/22 Anisocyte) 12:11 AM) [facility] RenuannPARATHYROID [id number] 06:11:00 Test Item Value Reference Range Interpretation Comments Ca Ion WB (test code = Ca Ion WB) 1.19 1.05-1.25 [facility] RenuannPARATHYROID [id number] 06:11:00 Test Item Value Reference Range Interpretation Comments Ca Ion at pH 7.4 WB (test code = Ca Ion 1.20 1.05-1.25 at pH 7.4 WB) [facility] AND [id number] 02:42:00 Test Item Value Reference Range Interpretation Comments UA Color (test code = Yellow *NA*(02/26/22 UA Color) 8:42 PM) [facility] [id number] 02:42:00 Test Item Value Reference Range Interpretation Comments UA Turbidity (test code = Clear (02/26/22 8:42 UA Turbidity) PM) [facility] [id number] 02:42:00 Test Item Value Reference Range Interpretation Comments UA Spec Grav (test code = UA Spec 1.010 1 Grav) [facility] AND [id number] 02:42:00 Test Item Value Reference Range Interpretation Comments UA pH (test code = UA pH) 6.5 1 5.0-8.0 [facility] [id number] 02:42:00 Test Item Value Reference Range Interpretation Comments UA Protein (test code = UA Negative mg/dL Protein) [facility] AND [id number] 02:42:00 Test Item Value Reference Range Interpretation Comments UA Glucose (test code = UA Negative mg/dL Glucose) [facility] AND [id number] 02:42:00 Test Item Value Reference Range Interpretation Comments UA Ketones (test code = UA Negative mg/dL Ketones) [facility] AND [id number] 02:42:00 Test Item Value Reference Range Interpretation Comments UA Bili (test code = Negative *NA*(02/26/22 UA Bili) 8:42 PM) [facility] AND [id number] 02:42:00 Test Item Value Reference Range Interpretation Comments UA Blood (test code = Negative (02/26/22 8:42 UA Blood) PM) [facility] [id number] 02:42:00 Test Item Value Reference Range Interpretation Comments UA Urobilinogen (test code = UA 0.2 0.1-1.0 Urobilinogen) [facility] [id number] 02:42:00 Test Item Value Reference Range Interpretation Comments UA Nitrite (test code Negative (02/26/22 8:42 = UA Nitrite) PM) [facility] [id number] 02:42:00 Test Item Value Reference Range Interpretation Comments UA Leuk Est (test Negative (02/26/22 8:42 code = UA Leuk Est) PM) [facility] [id number] 02:42:00 Test Item Value Reference Range Interpretation Comments UA WBC (test code = 1 See_Comment [Automa jw message] The UA WBC) system which ge nerated this result transmit jw reference range : <=5. The reference range was not used to interpr et this result as mateo l/abnormal. [facility] [id number] 02:42:00 Test Item Value Reference Range Interpretation Comments UA RBC (test code = no gt See_Comment [Automa jw message] The UA RBC) system which ge nerated this result transmit jw reference range : <=2. The reference range was not used to interpr et this result as mateo l/abnormal. [facility] [id number] 02:42:00 Test Item Value Reference Range Interpretation Comments UA Bacteria (test code = UA Occasional /HPF Bacteria) [facility] [id number] 02:42:00 Test Item Value Reference Range Interpretation Comments UA Mucus (test code = UA Mucus) Few /LPF [facility] [id number] 02:42:00 Test Item Value Reference Range Interpretation Comments UA Sq Epi (test code = None Seen (02/26/22 UA Sq Epi) 8:42 PM) [facility] [id number] 02:42:00 Test Item Value Reference Range Interpretation Comments UA Color (test code = Yellow *NA*(02/26/22 UA Color) 8:42 PM) [facility] [id number] 02:42:00 Test Item Value Reference Range Interpretation Comments UA Turbidity (test code = Clear (02/26/22 8:42 UA Turbidity) PM) [facility] AND [id number] 02:42:00 Test Item Value Reference Range Interpretation Comments UA Spec Grav (test code = UA Spec 1.010 1 Grav) [facility] AND [id number] 02:42:00 Test Item Value Reference Range Interpretation Comments UA pH (test code = UA pH) 6.5 1 5.0-8.0 [facility] AND [id number] 02:42:00 Test Item Value Reference Range Interpretation Comments UA Protein (test code = UA Negative mg/dL Protein) [facility] AND [id number] 02:42:00 Test Item Value Reference Range Interpretation Comments UA Glucose (test code = UA Negative mg/dL Glucose) [facility] AND [id number] 02:42:00 Test Item Value Reference Range Interpretation Comments UA Ketones (test code = UA Negative mg/dL Ketones) [facility] AND [id number] 02:42:00 Test Item Value Reference Range Interpretation Comments UA Bili (test code = Negative *NA*(02/26/22 UA Bili) 8:42 PM) [facility] AND [id number] 02:42:00 Test Item Value Reference Range Interpretation Comments UA Blood (test code = Negative (02/26/22 8:42 UA Blood) PM) [facility] AND [id number] 02:42:00 Test Item Value Reference Range Interpretation Comments UA Urobilinogen (test code = UA 0.2 0.1-1.0 Urobilinogen) [facility] AND [id number] 02:42:00 Test Item Value Reference Range Interpretation Comments UA Nitrite (test code Negative (02/26/22 8:42 = UA Nitrite) PM) [facility] AND [id number] 02:42:00 Test Item Value Reference Range Interpretation Comments UA Leuk Est (test Negative (02/26/22 8:42 code = UA Leuk Est) PM) [facility] AND [id number] 02:42:00 Test Item Value Reference Range Interpretation Comments UA WBC (test code = 1 See_Comment [Automa jw message] The UA WBC) system which ge nerated this result transmit jw reference range : <=5. The reference range was not used to interpr et this result as mateo l/abnormal. [facility] [id number] 02:42:00 Test Item Value Reference Range Interpretation Comments UA RBC (test code = no gt See_Comment [Automa jw message] The UA RBC) system which ge nerated this result transmit jw reference range : <=2. The reference range was not used to interpr et this result as mateo l/abnormal. [facility] [id number] 02:42:00 Test Item Value Reference Range Interpretation Comments UA Bacteria (test code = UA Occasional /HPF Bacteria) [facility] [id number] 02:42:00 Test Item Value Reference Range Interpretation Comments UA Mucus (test code = UA Mucus) Few /LPF [facility] [id number] 02:42:00 Test Item Value Reference Range Interpretation Comments UA Sq Epi (test code = None Seen (02/26/22 UA Sq Epi) 8:42 PM) [facility] [id number] 02:42:00 Test Item Value Reference Range Interpretation Comments UA Color (test code = Yellow *NA*(02/26/22 UA Color) 8:42 PM) [facility] [id number] 02:42:00 Test Item Value Reference Range Interpretation Comments UA Turbidity (test code = Clear (02/26/22 8:42 UA Turbidity) PM) [facility] [id number] 02:42:00 Test Item Value Reference Range Interpretation Comments UA Spec Grav (test code = UA Spec 1.010 1 Grav) [facility] [id number] 02:42:00 Test Item Value Reference Range Interpretation Comments UA pH (test code = UA pH) 6.5 1 5.0-8.0 [facility] [id number] 02:42:00 Test Item Value Reference Range Interpretation Comments UA Protein (test code = UA Negative mg/dL Protein) [facility] [id number] 02:42:00 Test Item Value Reference Range Interpretation Comments UA Glucose (test code = UA Negative mg/dL Glucose) [facility] [id number] 02:42:00 Test Item Value Reference Range Interpretation Comments UA Ketones (test code = UA Negative mg/dL Ketones) [facility] [id number] 02:42:00 Test Item Value Reference Range Interpretation Comments UA Bili (test code = Negative *NA*(02/26/22 UA Bili) 8:42 PM) [facility] [id number] 02:42:00 Test Item Value Reference Range Interpretation Comments UA Blood (test code = Negative (02/26/22 8:42 UA Blood) PM) [facility] [id number] 02:42:00 Test Item Value Reference Range Interpretation Comments UA Urobilinogen (test code = UA 0.2 0.1-1.0 Urobilinogen) [facility] [id number] 02:42:00 Test Item Value Reference Range Interpretation Comments UA Nitrite (test code Negative (02/26/22 8:42 = UA Nitrite) PM) [facility] AND [id number] 02:42:00 Test Item Value Reference Range Interpretation Comments UA Leuk Est (test Negative (02/26/22 8:42 code = UA Leuk Est) PM) [facility] [id number] 02:42:00 Test Item Value Reference Range Interpretation Comments UA WBC (test code = 1 See_Comment [Automa jw message] The UA WBC) system which ge nerated this result transmit jw reference range : <=5. The reference range was not used to interpr et this result as mateo l/abnormal. [facility] AND [id number] 02:42:00 Test Item Value Reference Range Interpretation Comments UA RBC (test code = no gt See_Comment [Automa jw message] The UA RBC) system which ge nerated this result transmit jw reference range : <=2. The reference range was not used to interpr et this result as mateo l/abnormal. [facility] [id number] 02:42:00 Test Item Value Reference Range Interpretation Comments UA Bacteria (test code = UA Occasional /HPF Bacteria) [facility] [id number] 02:42:00 Test Item Value Reference Range Interpretation Comments UA Mucus (test code = UA Mucus) Few /LPF [facility] AND [id number] 02:42:00 Test Item Value Reference Range Interpretation Comments UA Sq Epi (test code = None Seen (02/26/22 UA Sq Epi) 8:42 PM) [facility] [id number] 02:32:00 Test Item Value Reference Range Interpretation Comments HS Troponin I (test code = HS Troponin 21 I) [facility] [id number] 02:32:00 Test Item Value Reference Range Interpretation Comments HS Troponin I (test code = HS Troponin 21 I) [facility], TxCARAC [id number] 02:32:00 Test Item Value Reference Range Interpretation Comments HS Troponin I (test code = HS Troponin 21 I) [facility], TxBACTERIAL - [id number] 00:25:00 Test Item Value Reference Range Interpretation Comments MRSA by PCR (test Negative (02/26/22 6:25 code = MRSA by PCR) PM) [facility]FcaguydUQXAHGHKJY2397-20-00 00:25:00 Test Item Value Reference Range Interpretation Comments Coronavirus (COVID-19) Not Detected PAULA (test code = (02/26/22 6:25 PM) Coronavirus (COVID-19) PAULA) [facility] [id number] 00:25:00 Test Item Value Reference Range Interpretation Comments MRSA by PCR (test Negative (02/26/22 6:25 code = MRSA by PCR) PM) [facility] HospitalXqwvepmNYBKEMLAPY7498-98-59 00:25:00 Test Item Value Reference Range Interpretation Comments Coronavirus (COVID-19) Not Detected PAULA (test code = (02/26/22 6:25 PM) Coronavirus (COVID-19) PAULA) [facility] [id number] 00:25:00 Test Item Value Reference Range Interpretation Comments MRSA by PCR (test Negative (02/26/22 6:25 code = MRSA by PCR) PM) [facility] HospitalUkxyamtYTMFDEZTHJ2259-29-07 00:25:00 Test Item Value Reference Range Interpretation Comments Coronavirus (COVID-19) Not Detected PAULA (test code = (02/26/22 6:25 PM) Coronavirus (COVID-19) PAULA) [facility] [id number] 00:23:00 Test Item Value Reference Range Interpretation Comments ABO/Rh (test code = ABO/Rh) O POS [facility] [employer]et[employer]BLOOD BANK [id number] 00:23:00 Test Item Value Reference Range Interpretation Comments Antibody Scrn (test Negative (02/26/22 code = Antibody Scrn) 6:23 PM) [facility] [id number] 00:23:00 Test Item Value Reference Range Interpretation Comments BNP (test code = BNP) 56 [facility]iumannPhilrealestatesAC [id number] 00:23:00 Test Item Value Reference Range Interpretation Comments HS Troponin I Baseline (test code = HS 18 Troponin I Baseline) [facility] [id number] 00:23:00 Test Item Value Reference Range Interpretation Comments Total Protein (test code = Total 6.8 6.4-8.4 Protein) [facility] [id number] 00:23:00 Test Item Value Reference Range Interpretation Comments Albumin Lvl (test code = Albumin Lvl) 3.1 3.5-5.0 [facility] [id number] 00:23:00 Test Item Value Reference Range Interpretation Comments ALT (test code = ALT) 15 See_Comment [Auto mated message] The system which ge nerated this result transmit jw reference range : <=65. The reference range was not used to interpr et this result as mateo l/abnormal. [facility] [id number] 00:23:00 Test Item Value Reference Range Interpretation Comments AST (test code = AST) 14 See_Comment [Auto mated message] The system which ge nerated this result transmit jw reference range : <=37. The reference range was not used to interpr et this result as mateo l/abnormal. [facility] [id number] 00:23:00 Test Item Value Reference Range Interpretation Comments Alk Phos (test code = Alk Phos) 102 39-136 [facility] [place] [id number] 00:23:00 Test Item Value Reference Range Interpretation Comments Bili Total (test code = Bili Total) 0.2 0.2-1.3 [facility] [id number] 00:23:00 Test Item Value Reference Range Interpretation Comments Globulin (test code = Globulin) 3.7 2.7-4.2 [facility] [id number] 00:23:00 Test Item Value Reference Range Interpretation Comments A/G Ratio (test code = A/G Ratio) 0.8 1 0.7-1.6 [place] 114652-12-23 00:23:00 Test Item Value Reference Range Interpretation Comments Glucose Lvl (test code = Glucose Lvl) 98 70-99 [place] [address]-12-23 00:23:00 Test Item Value Reference Range Interpretation Comments BUN (test code = BUN) 15 7-22 [place] 114652-12-23 00:23:00 Test Item Value Reference Range Interpretation Comments Creatinine Lvl (test code = Creatinine 0.92 0.50-1.40 Lvl) [place] 114652-12-23 00:23:00 Test Item Value Reference Range Interpretation Comments Sodium Lvl (test code = Sodium Lvl) 136 135-145 [place] 114652-12-23 00:23:00 Test Item Value Reference Range Interpretation Comments Potassium Lvl (test code = Potassium 4.0 3.5-5.1 Lvl) [place] 114652-12-23 00:23:00 Test Item Value Reference Range Interpretation Comments Chloride Lvl (test code = Chloride Lvl) 101 95-109 [place] 114652-12-23 00:23:00 Test Item Value Reference Range Interpretation Comments CO2 (test code = CO2) 30 24-32 [place] 114652-12-23 00:23:00 Test Item Value Reference Range Interpretation Comments Calcium Lvl (test code = Calcium Lvl) 8.8 8.5-10.5 [place] 114652-12-23 00:23:00 Test Item Value Reference Range Interpretation Comments AGAP (test code = AGAP) 9.0 10.0-20.0 [place] 114652-12-23 00:23:00 Test Item Value Reference Range Interpretation Comments B/C Ratio (test code = B/C Ratio) 16 1 6-25 [place] [address]-12-23 00:23:00 Test Item Value Reference Range Interpretation Comments eGFR (test code = eGFR) 88 [place] 114652-12-23 00:23:00 Test Item Value Reference Range Interpretation Comments Lactic Acid Lvl (test code = Lactic 1.2 0.5-2.2 Acid Lvl) [facility]2022-12-23 00:23:00 Test Item Value Reference Range Interpretation Comments Magnesium Lvl (test code = Magnesium 1.8 1.8-2.4 Lvl) [facility]2022-12-23 00:23:00 Test Item Value Reference Range Interpretation Comments Phosphorus (test code = Phosphorus) 3.3 2.5-4.5 [place] 871742-12-23 00:23:00 Test Item Value Reference Range Interpretation Comments BNP (test code = BNP) 56 [facility] FallsLdggowwRBGCEEQPK7748-04-94 00:23:00 Test Item Value Reference Range Interpretation Comments Total Protein (test code = Total 6.8 6.4-8.4 Protein) [facility] FallsPndskunFBKHGKUCP3499-44-70 00:23:00 Test Item Value Reference Range Interpretation Comments Albumin Lvl (test code = Albumin Lvl) 3.1 3.5-5.0 [facility] FallsXzvbflyQJOVKSBNL2097-77-20 00:23:00 Test Item Value Reference Range Interpretation Comments ALT (test code = ALT) 15 See_Comment [Auto mated message] The system which ge nerated this result transmit jw reference range : <=65. The reference range was not used to interpr et this result as mateo l/abnormal. [facility] FallsXzbvrtuPBWDVEPAC8320-64-84 00:23:00 Test Item Value Reference Range Interpretation Comments AST (test code = AST) 14 See_Comment [Auto mated message] The system which ge nerated this result transmit jw reference range : <=37. The reference range was not used to interpr et this result as mateo l/abnormal. [facility] FallsEmmvespKIRELURHL5438-38-87 00:23:00 Test Item Value Reference Range Interpretation Comments Alk Phos (test code = Alk Phos) 102 39-136 [facility] FallsJaaoetqKKRSSCTJC7396-87-09 00:23:00 Test Item Value Reference Range Interpretation Comments Bili Total (test code = Bili Total) 0.2 0.2-1.3 [place] 871742-12-23 00:23:00 Test Item Value Reference Range Interpretation Comments Globulin (test code = Globulin) 3.7 2.7-4.2 [place] 871742-12-23 00:23:00 Test Item Value Reference Range Interpretation Comments A/G Ratio (test code = A/G Ratio) 0.8 1 0.7-1.6 [facility] FallsZdbzhamMEZWLOPRY0339-28-02 00:23:00 Test Item Value Reference Range Interpretation Comments B/C Ratio (test code = B/C Ratio) 16 1 6-25 [facility] FallsRvkkmeyRVUZUYPMB8141-72-93 00:23:00 Test Item Value Reference Range Interpretation Comments Hgb A1C (test code = Hgb A1C) 5.8 [facility] FallsSqejekgIDCKUZXRC8455-88-95 00:23:00 Test Item Value Reference Range Interpretation Comments Lactic Acid Lvl (test code = Lactic 1.2 0.5-2.2 Acid Lvl) [facility] FallsUietzhhHMWOFSTFO4787-42-37 00:23:00 Test Item Value Reference Range Interpretation Comments Trig (test code = Trig) 84 [facility] FallsXqxoxkxCAVSXQLPK7395-53-29 00:23:00 Test Item Value Reference Range Interpretation Comments Chol (test code = Chol) 131 [facility] FallsPutugxoTYESSNCXG2525-24-60 00:23:00 Test Item Value Reference Range Interpretation Comments HDL (test code = HDL) 32 [facility] FallsIdribmqHIKBEDZES2792-29-66 00:23:00 Test Item Value Reference Range Interpretation Comments Chol/HDL Ratio (test code = Chol/HDL 4.09 1 4.00-7.30 Ratio) [facility] FallsPxvquvlEPBREHNNH0803-07-61 00:23:00 Test Item Value Reference Range Interpretation Comments LDL (Calculated) (test code = LDL 82 (Calculated)) [facility] FallsCechemtVWTXHSQFC6685-71-42 00:23:00 Test Item Value Reference Range Interpretation Comments VLDL (test code = VLDL) 17 1 [place] 871742-12-23 00:23:00 Test Item Value Reference Range Interpretation Comments HS Troponin I Baseline (test code = HS 18 Troponin I Baseline) [facility] FallsDprnyzqAMJIBIWKE5088-04-48 00:23:00 Test Item Value Reference Range Interpretation Comments TSH (test code = TSH) 1.330 0.360-3.740 [place] 333252-12-23 00:23:00 Test Item Value Reference Range Interpretation Comments WBC (test code = WBC) 6.9 3.7-10.4 [place] 333252-12-23 00:23:00 Test Item Value Reference Range Interpretation Comments RBC (test code = RBC) 3.41 4.70-6.10 [facility] CenterUgsfdxxFTSJHLYQYO4857-25-71 00:23:00 Test Item Value Reference Range Interpretation Comments Hgb (test code = Hgb) 8.7 14.0-18.0 [place] 333252-12-23 00:23:00 Test Item Value Reference Range Interpretation Comments Hct (test code = Hct) 27.2 42.0-54.0 [facility] CenterRyxiqmpIECENXKZXB9152-95-48 00:23:00 Test Item Value Reference Range Interpretation Comments MCV (test code = MCV) 79.7 80.0-94.0 [facility] CenterCgtxupdOOAZQQEVID9649-90-91 00:23:00 Test Item Value Reference Range Interpretation Comments MCH (test code = MCH) 25.6 pg 27.0-31.0 [facility] CenterSuzpifvHDQMWVMLGQ8110-67-90 00:23:00 Test Item Value Reference Range Interpretation Comments MCHC (test code = MCHC) 32.1 32.0-36.0 [facility] CenterFkdwnylHRXMGJZCMW6394-14-33 00:23:00 Test Item Value Reference Range Interpretation Comments RDW (test code = RDW) 21.8 11.5-14.5 [facility] CenterEbuzubdRKUTDIIXED9625-43-68 00:23:00 Test Item Value Reference Range Interpretation Comments Platelet (test code = Platelet) 144 133-450 [facility] CenterHoylkswKYSIMQXVRW5909-44-74 00:23:00 Test Item Value Reference Range Interpretation Comments MPV (test code = MPV) 8.9 7.4-10.4 [place] 333252-12-23 00:23:00 Test Item Value Reference Range Interpretation Comments D-Dimer (test code = D-Dimer) 0.60 [place] 333252-12-23 00:23:00 Test Item Value Reference Range Interpretation Comments PT (test code = PT) 13.6 s 12.0-14.7 [place] 333252-12-23 00:23:00 Test Item Value Reference Range Interpretation Comments INR (test code = INR) 1.04 1 0.85-1.17 [place] 333252-12-23 00:23:00 Test Item Value Reference Range Interpretation Comments Fibrinogen Lvl (test code = Fibrinogen 393 230-510 Lvl) [facility] CenterCblmcapVQIQZKVZIG3860-73-92 00:23:00 Test Item Value Reference Range Interpretation Comments PTT (test code = PTT) 28.3 s 22.9-35.8 [place] 333252-12-23 00:23:00 Test Item Value Reference Range Interpretation Comments Thrombin Time (test code = Thrombin 16.2 s 15.0-21.2 Time) [facility] CenterWmoskajNQONJMIBRG5253-81-11 00:23:00 Test Item Value Reference Range Interpretation Comments Segs (test code = Segs) 58.3 45.0-75.0 [place] 333252-12-23 00:23:00 Test Item Value Reference Range Interpretation Comments Lymphocytes (test code = Lymphocytes) 28.8 20.0-40.0 [place] 333252-12-23 00:23:00 Test Item Value Reference Range Interpretation Comments Monocytes (test code = Monocytes) 9.0 2.0-12.0 [place] 333252-12-23 00:23:00 Test Item Value Reference Range Interpretation Comments Eosinophils (test code = 2.3 See_Comment [A utomated message] The Eosinophils) system which ge nerated this result tra nsmitted reference range : <=4.0. The reference r bret was not used to int erpret this result as normal/abnormal . [facility] CenterRelbubjNDUWYOVQFV3712-61-45 00:23:00 Test Item Value Reference Range Interpretation Comments Basophils (test code = 1.6 See_Comment [Aut omated message] The Basophils) system which ge nerated this result tra nsmitted reference range : <=1.0. The reference r bret was not used to int erpret this result as normal/abnormal . [facility] CenterUbzbbkjEHLRXOSGOX4043-42-49 00:23:00 Test Item Value Reference Range Interpretation Comments Neutrophils # (test code = Neutrophils 4.0 1.5-8.1 #) [place] 333252-12-23 00:23:00 Test Item Value Reference Range Interpretation Comments Lymphocytes # (test code = Lymphocytes 2.0 1.0-5.5 #) [place] 333252-12-23 00:23:00 Test Item Value Reference Range Interpretation Comments Monocytes # (test code 0.6 See_Comment [Aut omated message] The = Monocytes #) system which generated this result tra nsmitted reference range : <=0.8. The reference r bret was not used to int erpret this result as normal/abnormal . [facility] CenterVyjdnzvMXGBLUTVUG2745-27-78 00:23:00 Test Item Value Reference Range Interpretation Comments Eosinophils # (test code 0.2 See_Comment [A utomated message] The = Eosinophils #) system whic h generated this result tra nsmitted reference range : <=0.5. The reference r bret was not used to int erpret this result as normal/abnormal . [facility] CenterMsgbqprIRFBRUABME7904-29-57 00:23:00 Test Item Value Reference Range Interpretation Comments Basophils # (test code 0.1 See_Comment [Aut omated message] The = Basophils #) system which generated this result tra nsmitted reference range : <=0.2. The reference r bret was not used to int erpret this result as normal/abnormal . [facility] CenterVmzvzzcIPNBJJRWQS8929-53-79 00:23:00 Test Item Value Reference Range Interpretation Comments Anisocyte (test code = 1+ *ABN*(02/26/22 Anisocyte) 6:23 PM) [facility], TxApykvbnXQSCBH0314-39-91 00:23:00 Test Item Value Reference Range Interpretation Comments Trig (test code = Trig) 84 [facility] PointeKfmldsyBMBIAQ0098-21-64 00:23:00 Test Item Value Reference Range Interpretation Comments Chol (test code = Chol) 131 [facility] PointePhdiopmPOLDNU7205-33-06 00:23:00 Test Item Value Reference Range Interpretation Comments HDL (test code = HDL) [address] [facility], TxNbxpryoMHFNHQ8402-69-92 00:23:00 Test Item Value Reference Range Interpretation Comments Chol/HDL Ratio (test code = Chol/HDL 4.09 1 4.00-7.30 Ratio) [facility], TxIhwrlsnWVKLXE8582-98-93 00:23:00 Test Item Value Reference Range Interpretation Comments LDL (Calculated) (test code = LDL 82 (Calculated)) [facility], TxPowukclFNEOAO4181-38-84 00:23:00 Test Item Value Reference Range Interpretation Comments VLDL (test code = VLDL) [address] [facility], TxPARATHYROID ZKVNNIF6494-00-00 00:23:00 Test Item Value Reference Range Interpretation Comments Ca Ion WB (test code = Ca Ion WB) 1.22 1.05-1.25 [facility]annPARATHYROID LWRLDVM6377-77-89 00:23:00 Test Item Value Reference Range Interpretation Comments Ca Ion at pH 7.4 WB (test code = Ca Ion 1.17 1.05-1.25 at pH 7.4 WB) [facility], TxSPECIAL IOATLYLAR4217-37-26 00:23:00 Test Item Value Reference Range Interpretation Comments Hgb A1C (test code = Hgb A1C) 5.8 [facility] [employer] [id number] 00:23:00 Test Item Value Reference Range Interpretation Comments ABO/Rh (test code = ABO/Rh) O POS [facility] [employer] UNUYAUT2766-15-43 00:23:00 Test Item Value Reference Range Interpretation Comments Antibody Scrn (test Negative (02/26/22 code = Antibody Scrn) 6:23 PM) [facility] [employer]et[employer]+CARDIAC DDMBOWY1095-69-74 00:23:00 Test Item Value Reference Range Interpretation Comments BNP (test code = BNP) 56 [facility] [employer] HUDKMQN5278-16-74 00:23:00 Test Item Value Reference Range Interpretation Comments HS Troponin I Baseline (test code = HS 18 Troponin I Baseline) [facility] [place] [id number] 00:23:00 Test Item Value Reference Range Interpretation Comments Total Protein (test code = Total 6.8 6.4-8.4 Protein) [facility] [place] JKNSH8867-01-33 00:23:00 Test Item Value Reference Range Interpretation Comments Albumin Lvl (test code = Albumin Lvl) 3.1 3.5-5.0 [facility] [place] MZHHJ8786-10-53 00:23:00 Test Item Value Reference Range Interpretation Comments ALT (test code = ALT) 15 See_Comment [Auto mated message] The system which ge nerated this result transmit jw reference range : <=65. The reference range was not used to interpr et this result as mateo l/abnormal. [facility] [id number] 00:23:00 Test Item Value Reference Range Interpretation Comments AST (test code = AST) 14 See_Comment [Auto mated message] The system which ge nerated this result transmit jw reference range : <=37. The reference range was not used to interpr et this result as mateo l/abnormal. [place] 114652-12-23 00:23:00 Test Item Value Reference Range Interpretation Comments Alk Phos (test code = Alk Phos) 102 39-136 [place] 114652-12-23 00:23:00 Test Item Value Reference Range Interpretation Comments Bili Total (test code = Bili Total) 0.2 0.2-1.3 [place] 114652-12-23 00:23:00 Test Item Value Reference Range Interpretation Comments Globulin (test code = Globulin) 3.7 2.7-4.2 [place] 114652-12-23 00:23:00 Test Item Value Reference Range Interpretation Comments A/G Ratio (test code = A/G Ratio) 0.8 1 0.7-1.6 [place] 114652-12-23 00:23:00 Test Item Value Reference Range Interpretation Comments Glucose Lvl (test code = Glucose Lvl) 98 70-99 [place] 114652-12-23 00:23:00 Test Item Value Reference Range Interpretation Comments BUN (test code = BUN) 15 7-22 [place] 114652-12-23 00:23:00 Test Item Value Reference Range Interpretation Comments Creatinine Lvl (test code = Creatinine 0.92 0.50-1.40 Lvl) [place] 114652-12-23 00:23:00 Test Item Value Reference Range Interpretation Comments Sodium Lvl (test code = Sodium Lvl) 136 135-145 [place] 114652-12-23 00:23:00 Test Item Value Reference Range Interpretation Comments Potassium Lvl (test code = Potassium 4.0 3.5-5.1 Lvl) [place] 114652-12-23 00:23:00 Test Item Value Reference Range Interpretation Comments Chloride Lvl (test code = Chloride Lvl) 101 95-109 [place] 114652-12-23 00:23:00 Test Item Value Reference Range Interpretation Comments CO2 (test code = CO2) 30 24-32 [place] 114652-12-23 00:23:00 Test Item Value Reference Range Interpretation Comments Calcium Lvl (test code = Calcium Lvl) 8.8 8.5-10.5 [place] 114652-12-23 00:23:00 Test Item Value Reference Range Interpretation Comments AGAP (test code = AGAP) 9.0 10.0-20.0 [place] 114652-12-23 00:23:00 Test Item Value Reference Range Interpretation Comments B/C Ratio (test code = B/C Ratio) 16 1 6-[address]12-23 00:23:00 Test Item Value Reference Range Interpretation Comments eGFR (test code = eGFR) 88 [place] 114652-12-23 00:23:00 Test Item Value Reference Range Interpretation Comments Lactic Acid Lvl (test code = Lactic 1.2 0.5-2.2 Acid Lvl) [address]12-23 00:23:00 Test Item Value Reference Range Interpretation Comments Magnesium Lvl (test code = Magnesium 1.8 1.8-2.4 Lvl) [place] 114652-12-23 00:23:00 Test Item Value Reference Range Interpretation Comments Phosphorus (test code = Phosphorus) 3.3 2.5-4.5 [place] [address]-12-23 00:23:00 Test Item Value Reference Range Interpretation Comments BNP (test code = BNP) 56 [place] [address]-12-23 00:23:00 Test Item Value Reference Range Interpretation Comments Total Protein (test code = Total 6.8 6.4-8.4 Protein) [place] 871742-12-23 00:23:00 Test Item Value Reference Range Interpretation Comments Albumin Lvl (test code = Albumin Lvl) 3.1 3.5-5.0 [place] [address]-12-23 00:23:00 Test Item Value Reference Range Interpretation Comments ALT (test code = ALT) 15 See_Comment [Auto mated message] The system which ge nerated this result transmit jw reference range : <=65. The reference range was not used to interpr et this result as mateo l/abnormal. [place] [address]-12-23 00:23:00 Test Item Value Reference Range Interpretation Comments AST (test code = AST) 14 See_Comment [Auto mated message] The system which ge nerated this result transmit jw reference range : <=37. The reference range was not used to interpr et this result as mateo l/abnormal. [place] [address]-12-23 00:23:00 Test Item Value Reference Range Interpretation Comments Alk Phos (test code = Alk Phos) 102 39-136 [facility] FallsDmkpyynLVPUFGIVP8425-25-16 00:23:00 Test Item Value Reference Range Interpretation Comments Bili Total (test code = Bili Total) 0.2 0.2-1.3 [facility] FallsJdgydfxBYRJXNDCI5191-20-45 00:23:00 Test Item Value Reference Range Interpretation Comments Globulin (test code = Globulin) 3.7 2.7-4.2 [facility] FallsLvrxwudIOLPFTIXL2357-86-90 00:23:00 Test Item Value Reference Range Interpretation Comments A/G Ratio (test code = A/G Ratio) 0.8 1 0.7-1.6 [facility] FallsHgiyqvrWDEBUOVTX5363-31-63 00:23:00 Test Item Value Reference Range Interpretation Comments B/C Ratio (test code = B/C Ratio) 16 1 6-25 [facility] FallsWhjjbwbGDVFPLKDH3812-75-60 00:23:00 Test Item Value Reference Range Interpretation Comments Hgb A1C (test code = Hgb A1C) 5.8 [facility] FallsLgyjcerSJALVTXTN0793-18-63 00:23:00 Test Item Value Reference Range Interpretation Comments Lactic Acid Lvl (test code = Lactic 1.2 0.5-2.2 Acid Lvl) [facility] FallsVktqcpfYONXIWOCS8147-66-17 00:23:00 Test Item Value Reference Range Interpretation Comments Trig (test code = Trig) 84 [facility] FallsDovydvuSVFLFPGUW6613-58-41 00:23:00 Test Item Value Reference Range Interpretation Comments Chol (test code = Chol) 131 [facility] FallsDiaanipMRJBGOQYX0797-67-00 00:23:00 Test Item Value Reference Range Interpretation Comments HDL (test code = HDL) 32 [facility] FallsVbivsuzYFOBRNXVB2953-06-18 00:23:00 Test Item Value Reference Range Interpretation Comments Chol/HDL Ratio (test code = Chol/HDL 4.09 1 4.00-7.30 Ratio) [facility] FallsTowthzkCLLEUQMJA8997-98-90 00:23:00 Test Item Value Reference Range Interpretation Comments LDL (Calculated) (test code = LDL 82 (Calculated)) [facility] FallsJjwmhciGVPYDUBWK8957-74-26 00:23:00 Test Item Value Reference Range Interpretation Comments VLDL (test code = VLDL) 17 1 [facility] FallsIlbhzqnQHOORRLDZ0019-19-42 00:23:00 Test Item Value Reference Range Interpretation Comments HS Troponin I Baseline (test code = HS 18 Troponin I Baseline) [facility] FallsLgeoiatDOLORCGZO6798-00-31 00:23:00 Test Item Value Reference Range Interpretation Comments TSH (test code = TSH) 1.330 0.360-3.740 [facility] CenterUlmuoiwCEDEDWDOZX2907-72-99 00:23:00 Test Item Value Reference Range Interpretation Comments WBC (test code = WBC) 6.9 3.7-10.4 [facility] CenterCilxozrKCGMHAOMQT0195-75-83 00:23:00 Test Item Value Reference Range Interpretation Comments RBC (test code = RBC) 3.41 4.70-6.10 [facility] CenterVpthmhaQLTKNJHPZC5590-64-88 00:23:00 Test Item Value Reference Range Interpretation Comments Hgb (test code = Hgb) 8.7 14.0-18.0 [facility] CenterRgvxppgWTRGNSFVWF1736-07-54 00:23:00 Test Item Value Reference Range Interpretation Comments Hct (test code = Hct) 27.2 42.0-54.0 [facility] CenterKjcmimoGTJAEPMOWG4540-20-59 00:23:00 Test Item Value Reference Range Interpretation Comments MCV (test code = MCV) 79.7 80.0-94.0 [facility] CenterXqtcivhZYGAETTRKK3931-90-07 00:23:00 Test Item Value Reference Range Interpretation Comments MCH (test code = MCH) 25.6 pg 27.0-31.0 [facility] CenterVfupvdpMQMZPRTFRH3601-58-55 00:23:00 Test Item Value Reference Range Interpretation Comments MCHC (test code = MCHC) 32.1 32.0-36.0 [facility] CenterIjzhxorQAWEOXSVGP7895-71-78 00:23:00 Test Item Value Reference Range Interpretation Comments RDW (test code = RDW) 21.8 11.5-14.5 [facility] CenterBohmbpfBVVIYPNSOA9489-79-10 00:23:00 Test Item Value Reference Range Interpretation Comments Platelet (test code = Platelet) 144 133-450 [facility] CenterQntwilaKHZKXRKKOB6152-87-69 00:23:00 Test Item Value Reference Range Interpretation Comments MPV (test code = MPV) 8.9 7.4-10.4 [facility] CenterVpeuchqJPHJNCWNNW6867-90-65 00:23:00 Test Item Value Reference Range Interpretation Comments D-Dimer (test code = D-Dimer) 0.60 [place] 333252-12-23 00:23:00 Test Item Value Reference Range Interpretation Comments PT (test code = PT) 13.6 s 12.0-14.7 [place] 333252-12-23 00:23:00 Test Item Value Reference Range Interpretation Comments INR (test code = INR) 1.04 1 0.85-1.17 [place] 333252-12-23 00:23:00 Test Item Value Reference Range Interpretation Comments Fibrinogen Lvl (test code = Fibrinogen 393 230-510 Lvl) [facility] CenterLvatcmyHDHLUHEDRH8454-34-16 00:23:00 Test Item Value Reference Range Interpretation Comments PTT (test code = PTT) 28.3 s 22.9-35.8 [place] 333252-12-23 00:23:00 Test Item Value Reference Range Interpretation Comments Thrombin Time (test code = Thrombin 16.2 s 15.0-21.2 Time) [place] 333252-12-23 00:23:00 Test Item Value Reference Range Interpretation Comments Segs (test code = Segs) 58.3 45.0-75.0 [place] 333252-12-23 00:23:00 Test Item Value Reference Range Interpretation Comments Lymphocytes (test code = Lymphocytes) 28.8 20.0-40.0 [place] 333252-12-23 00:23:00 Test Item Value Reference Range Interpretation Comments Monocytes (test code = Monocytes) 9.0 2.0-12.0 [place] 333252-12-23 00:23:00 Test Item Value Reference Range Interpretation Comments Eosinophils (test code = 2.3 See_Comment [A utomated message] The Eosinophils) system which ge nerated this result tra nsmitted reference range : <=4.0. The reference r bret was not used to int erpret this result as normal/abnormal . [place] 333252-12-23 00:23:00 Test Item Value Reference Range Interpretation Comments Basophils (test code = 1.6 See_Comment [Aut omated message] The Basophils) system which ge nerated this result tra nsmitted reference range : <=1.0. The reference r bret was not used to int erpret this result as normal/abnormal . [facility] CenterDdcpusoBMUTUHXRPE3859-16-79 00:23:00 Test Item Value Reference Range Interpretation Comments Neutrophils # (test code = Neutrophils 4.0 1.5-8.1 #) [facility] CenterXibqsxeQDWTUHTDVE2504-30-68 00:23:00 Test Item Value Reference Range Interpretation Comments Lymphocytes # (test code = Lymphocytes 2.0 1.0-5.5 #) [place] 333252-12-23 00:23:00 Test Item Value Reference Range Interpretation Comments Monocytes # (test code 0.6 See_Comment [Aut omated message] The = Monocytes #) system which generated this result tra nsmitted reference range : <=0.8. The reference r bret was not used to int erpret this result as normal/abnormal . [place] 333252-12-23 00:23:00 Test Item Value Reference Range Interpretation Comments Eosinophils # (test code 0.2 See_Comment [A utomated message] The = Eosinophils #) system whic h generated this result tra nsmitted reference range : <=0.5. The reference r bret was not used to int erpret this result as normal/abnormal . [facility] CenterRrlaieoHXTEEMAUYG0720-08-99 00:23:00 Test Item Value Reference Range Interpretation Comments Basophils # (test code 0.1 See_Comment [Aut omated message] The = Basophils #) system which generated this result tra nsmitted reference range : <=0.2. The reference r bret was not used to int erpret this result as normal/abnormal . [place] 333252-12-23 00:23:00 Test Item Value Reference Range Interpretation Comments Anisocyte (test code = 1+ *ABN*(02/26/22 Anisocyte) 6:23 PM) [place] 656482-12-23 00:23:00 Test Item Value Reference Range Interpretation Comments Trig (test code = Trig) 84 [place] 656482-12-23 00:23:00 Test Item Value Reference Range Interpretation Comments Chol (test code = Chol) 131 [place] 656482-12-23 00:23:00 Test Item Value Reference Range Interpretation Comments HDL (test code = HDL) 32 [place] 656482-12-23 00:23:00 Test Item Value Reference Range Interpretation Comments Chol/HDL Ratio (test code = Chol/HDL 4.09 1 4.00-7.30 Ratio) [facility] DalsxvcSAUFOH2761-13-82 00:23:00 Test Item Value Reference Range Interpretation Comments LDL (Calculated) (test code = LDL 82 (Calculated)) [facility] HospitalHywfnaoBZCSIX7577-90-12 00:23:00 Test Item Value Reference Range Interpretation Comments VLDL (test code = VLDL) 17 1 [facility] [employer] ZKDYRHX0884-13-56 00:23:00 Test Item Value Reference Range Interpretation Comments Ca Ion WB (test code = Ca Ion WB) 1.22 1.05-1.25 [facility] [employer] DFRULPS5342-82-52 00:23:00 Test Item Value Reference Range Interpretation Comments Ca Ion at pH 7.4 WB (test code = Ca Ion 1.17 1.05-1.25 at pH 7.4 WB) [facility] HospitalListMinut EJWNKRAEB0521-21-30 00:23:00 Test Item Value Reference Range Interpretation Comments Hgb A1C (test code = Hgb A1C) 5.8 [facility] [employer] BDATHNA7385-45-32 00:23:00 Test Item Value Reference Range Interpretation Comments ABO/Rh (test code = ABO/Rh) O POS [facility] [employer] DEPMEZL5943-54-55 00:23:00 Test Item Value Reference Range Interpretation Comments Antibody Scrn (test Negative (02/26/22 code = Antibody Scrn) 6:23 PM) [facility] [employer] BFNFIPN3384-27-77 00:23:00 Test Item Value Reference Range Interpretation Comments BNP (test code = BNP) 56 [facility] [employer] YEFMMHF2602-84-93 00:23:00 Test Item Value Reference Range Interpretation Comments HS Troponin I Baseline (test code = HS 18 Troponin I Baseline) [facility] HKNSF1030-51-08 00:23:00 Test Item Value Reference Range Interpretation Comments Total Protein (test code = Total 6.8 6.4-8.4 Protein) [facility] [employer] OXEPF1713-59-72 00:23:00 Test Item Value Reference Range Interpretation Comments Albumin Lvl (test code = Albumin Lvl) 3.1 3.5-5.0 [facility] [employer] WLFNQ6448-65-34 00:23:00 Test Item Value Reference Range Interpretation Comments ALT (test code = ALT) 15 See_Comment [Auto mated message] The system which ge nerated this result transmit jw reference range : <=65. The reference range was not used to interpr et this result as mateo l/abnormal. [facility] [place] BHEWZ9098-90-28 00:23:00 Test Item Value Reference Range Interpretation Comments AST (test code = AST) 14 See_Comment [Auto mated message] The system which ge nerated this result transmit jw reference range : <=37. The reference range was not used to interpr et this result as mateo l/abnormal. [facility] [place] [id number] 00:23:00 Test Item Value Reference Range Interpretation Comments Alk Phos (test code = Alk Phos) 102 39-136 [facility] [place] OLKOQ2272-22-10 00:23:00 Test Item Value Reference Range Interpretation Comments Bili Total (test code = Bili Total) 0.2 0.2-1.3 [facility] [place] MXNQV9068-63-00 00:23:00 Test Item Value Reference Range Interpretation Comments Globulin (test code = Globulin) 3.7 2.7-4.2 [facility] [place] [id number] 00:23:00 Test Item Value Reference Range Interpretation Comments A/G Ratio (test code = A/G Ratio) 0.8 1 0.7-1.6 [facility] [place] QQEQK1129-19-97 00:23:00 Test Item Value Reference Range Interpretation Comments Glucose Lvl (test code = Glucose Lvl) 98 70-99 [facility] [place] KACUY4066-95-38 00:23:00 Test Item Value Reference Range Interpretation Comments BUN (test code = BUN) 15 7-22 [facility] [place] [id number] 00:23:00 Test Item Value Reference Range Interpretation Comments Creatinine Lvl (test code = Creatinine 0.92 0.50-1.40 Lvl) [facility] [place] [id number] 00:23:00 Test Item Value Reference Range Interpretation Comments Sodium Lvl (test code = Sodium Lvl) 136 135-145 [facility] [place] QYUUB1028-73-91 00:23:00 Test Item Value Reference Range Interpretation Comments Potassium Lvl (test code = Potassium 4.0 3.5-5.1 Lvl) [facility] [place] [id number] 00:23:00 Test Item Value Reference Range Interpretation Comments Chloride Lvl (test code = Chloride Lvl) 101 95-109 [place] 114652-12-23 00:23:00 Test Item Value Reference Range Interpretation Comments CO2 (test code = CO2) 30 24-32 [place] 114652-12-23 00:23:00 Test Item Value Reference Range Interpretation Comments Calcium Lvl (test code = Calcium Lvl) 8.8 8.5-10.5 [place] 114652-12-23 00:23:00 Test Item Value Reference Range Interpretation Comments AGAP (test code = AGAP) 9.0 10.0-20.0 [place] 114652-12-23 00:23:00 Test Item Value Reference Range Interpretation Comments B/C Ratio (test code = B/C Ratio) 16 1 6-25 [place] 114652-12-23 00:23:00 Test Item Value Reference Range Interpretation Comments eGFR (test code = eGFR) 88 [place] 114652-12-23 00:23:00 Test Item Value Reference Range Interpretation Comments Lactic Acid Lvl (test code = Lactic 1.2 0.5-2.2 Acid Lvl) [place] 114652-12-23 00:23:00 Test Item Value Reference Range Interpretation Comments Magnesium Lvl (test code = Magnesium 1.8 1.8-2.4 Lvl) [place] 114652-12-23 00:23:00 Test Item Value Reference Range Interpretation Comments Phosphorus (test code = Phosphorus) 3.3 2.5-4.5 [place] 871742-12-23 00:23:00 Test Item Value Reference Range Interpretation Comments BNP (test code = BNP) 56 [place] 871742-12-23 00:23:00 Test Item Value Reference Range Interpretation Comments Total Protein (test code = Total 6.8 6.4-8.4 Protein) [place] 871742-12-23 00:23:00 Test Item Value Reference Range Interpretation Comments Albumin Lvl (test code = Albumin Lvl) 3.1 3.5-5.0 [place] 871742-12-23 00:23:00 Test Item Value Reference Range Interpretation Comments ALT (test code = ALT) 15 See_Comment [Auto mated message] The system which ge nerated this result transmit jw reference range : <=65. The reference range was not used to interpr et this result as mateo l/abnormal. [facility] IoyhdscSTMTCQOEV7169-37-50 00:23:00 Test Item Value Reference Range Interpretation Comments AST (test code = AST) 14 See_Comment [Auto mated message] The system which ge nerated this result transmit jw reference range : <=37. The reference range was not used to interpr et this result as mateo l/abnormal. [facility] TkxzvimWFWWKWCWX5238-18-06 00:23:00 Test Item Value Reference Range Interpretation Comments Alk Phos (test code = Alk Phos) 102 39-136 [facility] CphxbsbKNAOXXLAX9128-33-36 00:23:00 Test Item Value Reference Range Interpretation Comments Bili Total (test code = Bili Total) 0.2 0.2-1.3 [facility] GqbbjziZAKLBZUXH7303-18-63 00:23:00 Test Item Value Reference Range Interpretation Comments Globulin (test code = Globulin) 3.7 2.7-4.2 [facility] ZzmhtyrLKUFKESGD4394-98-97 00:23:00 Test Item Value Reference Range Interpretation Comments A/G Ratio (test code = A/G Ratio) 0.8 1 0.7-1.6 [facility] ZjuspyrLUHXRKFTS6839-70-11 00:23:00 Test Item Value Reference Range Interpretation Comments B/C Ratio (test code = B/C Ratio) 16 1 6-25 [facility] WqdvkffPTLWMFUNW5109-63-09 00:23:00 Test Item Value Reference Range Interpretation Comments Hgb A1C (test code = Hgb A1C) 5.8 [facility] XepdqlzFMSIUCOOT3254-57-88 00:23:00 Test Item Value Reference Range Interpretation Comments Lactic Acid Lvl (test code = Lactic 1.2 0.5-2.2 Acid Lvl) [facility] CjxgjzgBUOAXJCDV0230-32-04 00:23:00 Test Item Value Reference Range Interpretation Comments Trig (test code = Trig) 84 [facility] SyfxwyaROHOSCFOQ2648-00-47 00:23:00 Test Item Value Reference Range Interpretation Comments Chol (test code = Chol) 131 [facility] VlzwsvnNEQCLXLOT0998-16-50 00:23:00 Test Item Value Reference Range Interpretation Comments HDL (test code = HDL) 32 [facility] FallsLenrnoaFQVGQLUFH0893-31-40 00:23:00 Test Item Value Reference Range Interpretation Comments Chol/HDL Ratio (test code = Chol/HDL 4.09 1 4.00-7.30 Ratio) [place] 871742-12-23 00:23:00 Test Item Value Reference Range Interpretation Comments LDL (Calculated) (test code = LDL 82 (Calculated)) [place] 871742-12-23 00:23:00 Test Item Value Reference Range Interpretation Comments VLDL (test code = VLDL) 17 1 [place] 871742-12-23 00:23:00 Test Item Value Reference Range Interpretation Comments HS Troponin I Baseline (test code = HS 18 Troponin I Baseline) [facility] FallsYkpmmssIAZFIXRSP8902-03-86 00:23:00 Test Item Value Reference Range Interpretation Comments TSH (test code = TSH) 1.330 0.360-3.740 [place] 333252-12-23 00:23:00 Test Item Value Reference Range Interpretation Comments WBC (test code = WBC) 6.9 3.7-10.4 [place] 333252-12-23 00:23:00 Test Item Value Reference Range Interpretation Comments RBC (test code = RBC) 3.41 4.70-6.10 [facility]CnorzkzLNTHYAKJBT9128-34-43 00:23:00 Test Item Value Reference Range Interpretation Comments Hgb (test code = Hgb) 8.7 14.0-18.0 [facility] CenterSdxutnlCRUFNRYMWN6393-11-45 00:23:00 Test Item Value Reference Range Interpretation Comments Hct (test code = Hct) 27.2 42.0-54.0 [place] 333252-12-23 00:23:00 Test Item Value Reference Range Interpretation Comments MCV (test code = MCV) 79.7 80.0-94.0 [place] 333252-12-23 00:23:00 Test Item Value Reference Range Interpretation Comments MCH (test code = MCH) 25.6 pg 27.0-31.0 [place] 333252-12-23 00:23:00 Test Item Value Reference Range Interpretation Comments MCHC (test code = MCHC) 32.1 32.0-36.0 [place] 333252-12-23 00:23:00 Test Item Value Reference Range Interpretation Comments RDW (test code = RDW) 21.8 11.5-14.5 [place] 333252-12-23 00:23:00 Test Item Value Reference Range Interpretation Comments Platelet (test code = Platelet) 144 133-450 [place] 333252-12-23 00:23:00 Test Item Value Reference Range Interpretation Comments MPV (test code = MPV) 8.9 7.4-10.4 [place] 333252-12-23 00:23:00 Test Item Value Reference Range Interpretation Comments D-Dimer (test code = D-Dimer) 0.60 [place] [address]-12-23 00:23:00 Test Item Value Reference Range Interpretation Comments PT (test code = PT) 13.6 s 12.0-14.7 [place] 333252-12-23 00:23:00 Test Item Value Reference Range Interpretation Comments INR (test code = INR) 1.04 1 0.85-1.17 [place] 333252-12-23 00:23:00 Test Item Value Reference Range Interpretation Comments Fibrinogen Lvl (test code = Fibrinogen 393 230-510 Lvl) [place] 333252-12-23 00:23:00 Test Item Value Reference Range Interpretation Comments PTT (test code = PTT) 28.3 s 22.9-35.8 [place] 333252-12-23 00:23:00 Test Item Value Reference Range Interpretation Comments Thrombin Time (test code = Thrombin 16.2 s 15.0-21.2 Time) [place] 333252-12-23 00:23:00 Test Item Value Reference Range Interpretation Comments Segs (test code = Segs) 58.3 45.0-75.0 [place] 333252-12-23 00:23:00 Test Item Value Reference Range Interpretation Comments Lymphocytes (test code = Lymphocytes) 28.8 20.0-40.0 [place] [address]-12-23 00:23:00 Test Item Value Reference Range Interpretation Comments Monocytes (test code = Monocytes) 9.0 2.0-12.0 [place] 333252-12-23 00:23:00 Test Item Value Reference Range Interpretation Comments Eosinophils (test code = 2.3 See_Comment [A utomated message] The Eosinophils) system which ge nerated this result tra nsmitted reference range : <=4.0. The reference r bret was not used to int erpret this result as normal/abnormal . [place] 333252-12-23 00:23:00 Test Item Value Reference Range Interpretation Comments Basophils (test code = 1.6 See_Comment [Aut omated message] The Basophils) system which ge nerated this result tra nsmitted reference range : <=1.0. The reference r bret was not used to int erpret this result as normal/abnormal . [facility] CenterDvjvdfzREOZRMDILZ8857-65-53 00:23:00 Test Item Value Reference Range Interpretation Comments Neutrophils # (test code = Neutrophils 4.0 1.5-8.1 #) [place] 333252-12-23 00:23:00 Test Item Value Reference Range Interpretation Comments Lymphocytes # (test code = Lymphocytes 2.0 1.0-5.5 #) [place] 333252-12-23 00:23:00 Test Item Value Reference Range Interpretation Comments Monocytes # (test code 0.6 See_Comment [Aut omated message] The = Monocytes #) system which generated this result tra nsmitted reference range : <=0.8. The reference r bret was not used to int erpret this result as normal/abnormal . [place] 333252-12-23 00:23:00 Test Item Value Reference Range Interpretation Comments Eosinophils # (test code 0.2 See_Comment [A utomated message] The = Eosinophils #) system [facility] generated this result tra nsmitted reference range : <=0.5. The reference r bret was not used to int erpret this result as normal/abnormal . [place] 333252-12-23 00:23:00 Test Item Value Reference Range Interpretation Comments Basophils # (test code 0.1 See_Comment [Aut omated message] The = Basophils #) system which generated this result tra nsmitted reference range : <=0.2. The reference r bret was not used to int erpret this result as normal/abnormal . [facility] CenterLueisrxNMYTWEHHQW2655-45-19 00:23:00 Test Item Value Reference Range Interpretation Comments Anisocyte (test code = 1+ *ABN*(12/22/22 Anisocyte) 6:23 PM) [facility] [place], [id number] 00:23:00 Test Item Value Reference Range Interpretation Comments Trig (test code = Trig) 84 [facility]SnjckxzNKQULC6034-37-18 00:23:00 Test Item Value Reference Range Interpretation Comments Chol (test code = Chol) [address] [facility] [place], TxMjmwrqfFCUMQD0932-03-80 00:23:00 Test Item Value Reference Range Interpretation Comments HDL (test code = HDL) 32 [facility] HospitalJmupgqaTJTMFH1325-44-59 00:23:00 Test Item Value Reference Range Interpretation Comments Chol/HDL Ratio (test code = Chol/HDL 4.09 1 4.00-7.30 Ratio) [facility] HospitalBsebexsKUCNDF0821-36-00 00:23:00 Test Item Value Reference Range Interpretation Comments LDL (Calculated) (test code = LDL 82 (Calculated)) [facility] [place], TxCaypqjtUQRNWJ8585-02-91 00:23:00 Test Item Value Reference Range Interpretation Comments VLDL (test code = VLDL) [address] [facility] [place], TxPARATHYROID [id number] 00:23:00 Test Item Value Reference Range Interpretation Comments Ca Ion WB (test code = Ca Ion WB) 1.22 1.05-1.25 [facility] HospitalannPARATHYROID [id number] 00:23:00 Test Item Value Reference Range Interpretation Comments Ca Ion at pH 7.4 WB (test code = Ca Ion 1.17 1.05-1.25 at pH 7.4 WB) [facility] [place], TxSPECIAL FNKCOOLWI7358-86-51 00:23:00 Test Item Value Reference Range Interpretation Comments Hgb A1C (test code = Hgb A1C) 5.8 [facility] WITH [id number] 19:55:39 Test Item Value Reference Range Interpretation Comments WBC (test code = See_Comment [Automated 4790-2) message] The sy stem which generated this result transmitted reference range : 4.20 - 10.70 10*3/?L. The reference range was not used to interpret this result as normal/abnormal . RBC (test code = See_Comment L [Automated 799-8) message] The sy stem which generated this result transmitted reference range : 4.26 - 5.52 10*6/?L. The reference range was not used to interpret this result as normal/abnormal . HGB (test code = 9.6 g/dL 12.2-16.4 L 718-7) HCT (test code = 31.2 % 38.4-49.3 L 4544-3) MCV (test code = 79.2 fL 81.7-95.6 L 787-2) MCH (test code = 24.4 pg 26.1-32.7 L 785-6) MCHC (test code = 30.8 g/dL 31.2-35 L 786-4) RDW-SD (test code = 55.2 fL 38.5-51.6 H 62949-2) RDW-CV (test code = 19.2 % 12.1-15.4 H 788-0) PLT (test code = See_Comment [Automated 777-3) message] The sy stem which generated this result transmitted reference range : 150 - 328 10*3/ ?L. The reference r bret was not used to interpret this result as normal/abnormal . MPV (test code = 11.1 fL 9.8-13 02874-2) NRBC/100 WBC (test See_Comment [Automat ed code = 4306621971) message] The system which generated this result transmitted reference range : 0.0 - 10.0 /100 WBCs. The refer ence range was not u sed to interpret th is result as normal/abnormal . NRBC x10^3 (test code See_Comment [Auto mated = 5650573450) message] The s ystem which generated this result transmitted reference range : 10*3/?L. The reference range was not used to interpret this result as normal/abnormal . GRAN MAT (NEUT) % 50.2 % (test code = 770-8) IMM GRAN % (test code 0.90 % = 7696350921) LYMPH % (test code = 33.5 % 736-9) MONO % (test code = 12.1 % 5905-5) EOS % (test code = 1.9 % 713-8) BASO % (test code = 1.4 % 706-2) GRAN MAT x10^3(ANC) 2.16 10*3/uL 1.99-6.95 (test code = 7729179377) IMM GRAN x10^3 (test 0.04 10*3/uL 0-0.06 code = 4430224112) LYMPH x10^3 (test code 1.44 10*3/uL 1.09-3.23 = 731-0) MONO x10^3 (test code 0.52 10*3/uL 0.36-1.02 = 742-7) EOS x10^3 (test code = 0.08 10*3/uL 0.06-0.53 711-2) BASO x10^3 (test code 0.06 10*3/uL 0.01-0.09 = 704-7) ELLIPTO/OVAL (test 2+ See_Comment A [Automat ed code = 15952-1) message] The system which generated this result transmitted reference range : (none). The reference range was not used to interpret this result as normal/abnormal . POLYCHROMASIA (test 2+ See_Comment [Automa jw code = 37051-2) message] The system which generated this result transmitted reference range : 2+. The referen ce range was not u sed to interpret th is result as normal/abnormal . Lab Interpretation Abnormal (test code = 88622-9) [id number] 19:30[facility]38 Test Item Value Reference Interpretation Comments Range TROPONIN I (test See_Comment [Automated code = 2181260699) message] The system which generated this result [...] biotin. Lab Interpretation Normal (test code = 19516-8) [facility] [id number] 19:30:12 Test Item Value Reference Range Interpretation Comments NT-proBNP (test code 319 pg/mL See_Comment H [Autom ated = 6291817985) message] The system which generated this result transmitted reference range : <=125. The reference range was not used to interpret this result as normal/abnormal . ANDREA (test code = ANDREA) Biotin has been reported to cause a negative bias, interpret results relative to patient's use of biotin. Lab Interpretation Abnormal (test code = 04226-2) [facility]. METABOLIC PANEL (49850)2021-12-09 19:18:24 Test Item Value Reference Range Interpretation Comments NA (test code = 137 mmol/L 135-145 0770305575) K (test code = 4.5 mmol/L 3.5-5 1221903896) CL (test code = 100 mmol/L 98-108 0828469155) CO2 TOTAL (test code = 24 mmol/L 23-31 0208991067) AGAP (test code = 2-16 9185810383) BUN (test code = 10 mg/dL 7-23 2286201886) GLUCOSE (test code = 132 mg/dL 70-110 H 2422015415) CREATININE (test code = 0.92 mg/dL 0.6-1.25 3952381542) TOTAL BILI (test code = 0.6 mg/dL 0.1-1.6 3292532687) CALCIUM (test code = 9.7 mg/dL 8.6-10.6 4349506904) T PROTEIN (test code = 7.5 g/dL 6.3-8.2 9394004487) ALBUMIN (test code = 4.5 g/dL 3.5-5 0193347115) ALK PHOS (test code = 88 U/L 34-122 2554092248) ALTv (test code = 16 U/L 5-50 1742-6) AST(SGOT) (test code = 32 U/L 13-40 3637640768) eGFR (test code = mL/min/1.73m2 7881387889) ANDREA (test code = ANDREA) Association of [...] tests). Lab Interpretation Abnormal (test code = 65260-2) [facility] 19:18:03 Test Item Value Reference Range Interpretation Comments LIPASE (test code = 6853531718) 78 U/L 0-220 Lab Interpretation (test code = Normal 84180-0) [facility] CenterPROTHROMBIN TIME / [id number] 19:03:22 Test Item Value Reference Range Interpretation Comments PROTIME PATIENT (test See_Comment [Auto mated message] code = 5964-2) The system [employer] generated this result transmitted ref erence range: 12.0 - 1 4.7 Seconds. The re ference range was not u sed to interpret this result as normal/abnor mal. INR (test code = 6301-6) Nor mal INR <1.1; Warfarin Therap eutic range 2.0 to 3. 0 or 2.5 to 3.5, dep ending upon the indica tions. Lab Interpretation (test Normal code = 74318-3) [facility] ([facility]2021-[facility]-26 21:19:15 Test Item Value Reference Range Interpretation Comments Height (test code = in 9726001937) Weight (test code = lbs 0670528165) Systolic BP (test mmHg code = 8558496459) Diastolic BP (test mmHg code = 4230015560) Heart Rate (test code bpm = 3887007497) BSA (test code = 1.75 m2 3100953162) Radiology Study observation (narrative) (test code = 46716-3) ANDREA (test code = ANDREA) ?Left?Atrium: Left [...] contrast was performed. Patient exhibited sinus rhythm. [facility] - Transthoracic echo (TTE) 2021-11-25 21:27:22 Test Item Value Reference Range Interpretation Comments LVIDD (test code = 4.50 cm 9799332230) Interventricular Septum 0.91 cm Diastolic Thickness by 2D (test code = 7345138) PW (test code = 0.86 cm 0.6-1.8 4138919504) LVIDS (test code = 3.10 cm 3885680217) LA volume (BP) (test 41.9 mL code = 7747102934) LA size (test code = 3.7 cm 5822160753) LVPWD (test code = 0.86 cm 6928354821) AV LVOT peak gradient mmHg (test code = 5003204731) E/A ratio (test code = ratio 6094408221) E wave decelartion time 0.19 s (test code = 3682385914) LVOT diameter (test code 1.88 cm = 8140099995) LVOT peak VTI (test code 24.9 cm = 6175024508) Ao peak adry (test code = 168.7 cm/s 6048346449) LVOT stroke volume (test 69.10 cm3 code = 6175318959) AV peak gradient (test mmHg code = 9391977545) Triscuspid Valve mmHg Regurgitation Peak Gradient (test code = 1200811429) MV Peak E Adry (test code 76.3 cm/s = 1042299191) MV Peak A Adry (test code 100.3 cm/s = 3890487626) LA Volume Index (BP) 24.0 mL/m2 (test code = 1692485948) IVS (test code = 0.91 cm 0695983339) Aortic root (test code = 3.2 cm 9391055417) Tapse (test code = 2.43 cm 3352204457) EF - 2D (test code = 58.70 % 99141972) Left Ventricular End 90.1 mL Diastolic Volume by Teichholz Method (test code = 2991879) Left Ventricular End 37.2 mL Systolic Volume by Teichholz Method (test code = 6714035) Ao root annulus (test 3.2 cm code = 5354427706) FS (test code = 31 % 9169207723) LVOT mn grad (test code mmHg = 6523840945) AV area peak adry (test 2.1 cm2 code = 8840433714) TR Peak Adry (test code = 339.1 cm/s 9448011561) LVOT area (test code = 2.80 cm2 0035904139) LVOT peak adry (test code 126.9 cm/s = 7948237106) BSA (test code = 1.75 m2 6726211522) Ao root diam (test code 3.20 cm = 1890918953) EF(Teich) (test code = 58.70 % 9056467293) LAV(MOD-sp2) (test code 34.60 mL = 8869047514) LAV(MOD-sp4) (test code 38.60 mL = 8299382588) LV V1 mean (test code = 74.30 cm/s 3926242334) MV Prop V (test code = 65.50 cm/s 6199449356) Ao max PG (test code = 11.40 mm[Hg] 4834673345) Height (test code = in 7571304172) Weight (test code = lbs 1787011243) Systolic BP (test code = mmHg 7103575743) Diastolic BP (test code mmHg = 2856892185) Heart Rate (test code = bpm 2605821294) MV E/e' septal (test 9.7 cm/s code = 6360147595) Radiology Study observation (narrative) (test code = 20388-3) ANDREA (test code = ANDREA) ?Left?Ventricle: Left [...] mL of Lumason ultrasound enhancing agent used. [facility] LIPID PANEL (22413)(TOTAL CHOLESTEROL, TRIGLYCERIDES, HDL)2021-11-25 14:04:16 Test Item Value Reference Range Interpretation Comments CHOL (test code = 113 mg/dL 120-200 L 6970056649) HDL (test code = 22 mg/dL See_Comment L [Automated message] 3831751647) The system [employer] generated this result transmit jw reference range : >=40. The refer ence range was not u sed to interpret th is result as normal/abnormal . HDLC RATIO (test code = See_Comment H [Au tomated message] 7649656938) The system [employer] generated this result transmit jw reference range : <=5.0. The refe rence range was not u sed to interpret th is result as normal/abnormal . TRIG (test code = 97 mg/dL 30-170 5894523222) LDL CHOL (test code = 72 mg/dL See_Comment [Auto mated message] 56897-3) The system [employer] generated this result transmit jw reference range : <=160. The refe rence range was not u sed to interpret th is result as normal/abnormal . VLDL (test code = 19 mg/dL 5-60 6598411939) Lab Interpretation (test Abnormal code = 11732-8) [facility] CenterGLYCOSYLATED HEMOGLOBIN (A1C)2021-11-25 00:36:38 Test Item Value Reference Range Interpretation Comments HGB A1C (test code = 6.0 % 4-5.7 H 4548-4) ANDREA (test code = ANDREA) Reference RangesNormal: <5.7%Prediabetes: 5.7 - 6.4%Diabetes: > 6.5% Lab Interpretation (test Abnormal code = 94338-9) [facility] CenterCOMP. METABOLIC PANEL (28146)2021-11-24 19:07:52 Test Item Value Reference Range Interpretation Comments NA (test code = 134 mmol/L 135-145 L 0263569182) K (test code = 3.9 mmol/L 3.5-5 8471634985) CL (test code = 100 mmol/L 98-108 3883185729) CO2 TOTAL (test code = 27 mmol/L 23-31 9842984767) AGAP (test code = 2-16 8417388938) BUN (test code = 11 mg/dL 7-23 9618216616) GLUCOSE (test code = 96 mg/dL 70-110 8421527232) CREATININE (test code = 0.84 mg/dL 0.6-1.25 6086875056) TOTAL BILI (test code = 0.2 mg/dL 0.1-1.4 3661915691) CALCIUM (test code = 8.0 mg/dL 8.6-10.6 L 9517251813) T PROTEIN (test code = 5.9 g/dL 6.3-8.2 L 0476648975) ALBUMIN (test code = 3.9 g/dL 3.5-5 6508746585) ALK PHOS (test code = 88 U/L 34-122 8640483697) ALTv (test code = 15 U/L 5-50 1742-6) AST(SGOT) (test code = 24 U/L 13-40 3884970354) eGFR (test code = mL/min/1.73m2 9990463019) ANDREA (test code = ANDREA) Association of [...] tests). Lab Interpretation Abnormal (test code = 29466-2) [facility] WITH [id number] 18:58:27 Test Item Value Reference Range Interpretation [...] (test code = 53.2 fL 38.5-51.6 H 52828-7) RDW-CV (test code = 18.6 % 12.1-15.4 H 788-0) PLT (test code = See_Comment [Automated 777-3) message] The sy stem which generated this result transmitted reference range : 150 - 328 10*3/ ?L. The reference r bret was not used to interpret this result as normal/abnormal . MPV (test code = 11.4 fL 9.8-13 79925-2) NRBC/100 WBC (test See_Comment [Automat ed code = 3770810816) message] The system which generated this result transmitted reference range : 0.0 - 10.0 /100 WBCs. The refer ence range was not u sed to interpret th is result as normal/abnormal . NRBC x10^3 (test code See_Comment [Auto mated = 8052041219) message] The s ystem which generated this result transmitted reference range : 10*3/?L. The reference range was not used to interpret this result as normal/abnormal . GRAN MAT (NEUT) % 48.8 % (test code = 770-8) IMM GRAN % (test code 1.00 % = 6371511726) LYMPH % (test code = 34.6 % 736-9) MONO % (test code = 12.2 % 5905-5) EOS % (test code = 2.2 % 713-8) BASO % (test code = 1.2 % 706-2) GRAN MAT x10^3(ANC) 1.96 10*3/uL 1.99-6.95 L (test code = 2331525909) IMM GRAN x10^3 (test 0.04 10*3/uL 0-0.06 code = 7304020981) LYMPH x10^3 (test code 1.39 10*3/uL 1.09-3.23 [...] 2+ See_Comment A [Automat ed code = 23343-5) message] The system which generated this result transmitted reference range : (none). The reference range was not used to interpret this result as normal/abnormal . POLYCHROMASIA (test 2+ See_Comment [Automa jw code = 92484-6) message] The system which generated this result transmitted reference range : 2+. The referen ce range was not u sed to interpret th is result as normal/abnormal . SCHISTOCYTES (test 1+ A code = 800-3) REACT LYMPHS (test Rare code = 9032484739) Lab Interpretation Abnormal (test code = 15793-8) [facility] [id number] 18:15:21 Test Item Value Reference Range Interpretation Comments NT-proBNP (test code 274 pg/mL See_Comment H [Autom ated = 2598451783) message] The system which generated this result transmitted reference range : <=125. The reference range was not used to interpret this result as normal/abnormal . ANDREA (test code = ANDREA) Biotin has been reported to cause a negative bias, interpret results relative to patient's use of biotin. Lab Interpretation Abnormal (test code = 04024-8) [facility] WITH [id number] 18:55:42 Test Item Value Reference Range Interpretation [...] (test code = 51.9 fL 38.5-51.6 H 53065-8) RDW-CV (test code = 17.8 % 12.1-15.4 H 788-0) PLT (test code = See_Comment [Automated 777-3) message] The sy stem which generated this result transmitted reference range : 150 - 328 10*3/ ?L. The reference r bret was not used to interpret this result as normal/abnormal . MPV (test code = 11.6 fL 9.8-13 19102-4) NRBC/100 WBC (test See_Comment [Automat ed code = 4071176174) message] The system which generated this result transmitted reference range : 0.0 - 10.0 /100 WBCs. The refer ence range was not u sed to interpret th is result as normal/abnormal . NRBC x10^3 (test code See_Comment [Auto mated = 3419929733) message] The s ystem which generated this result transmitted reference range : 10*3/?L. The reference range was not used to interpret this result as normal/abnormal . GRAN MAT (NEUT) % 42.1 % (test code = 770-8) IMM GRAN % (test code 0.90 % = 5889314966) LYMPH % (test code = 37.6 % 736-9) MONO % (test code = 14.9 % 5905-5) EOS % (test code = 3.0 % 713-8) BASO % (test code = 1.5 % 706-2) GRAN MAT x10^3(ANC) 1.95 10*3/uL 1.99-6.95 L (test code = 2537822243) IMM GRAN x10^3 (test 0.04 10*3/uL 0-0.06 code = 3765639817) LYMPH x10^3 (test code 1.74 10*3/uL 1.09-3.23 = 731-0) MONO x10^3 (test code 0.69 10*3/uL 0.36-1.02 = 742-7) EOS x10^3 (test code = 0.14 10*3/uL 0.06-0.53 711-2) BASO x10^3 (test code 0.07 10*3/uL 0.01-0.09 = 704-7) ELLIPTO/OVAL (test 2+ See_Comment A [Automat ed code = 17389-4) message] The system which generated this result transmitted reference range : (none). The reference range was not used to interpret this result as normal/abnormal . POLYCHROMASIA (test 2+ See_Comment [Automa jw code = 38985-2) message] The system which generated this result transmitted reference range : 2+. The referen ce range was not u sed to interpret th is result as normal/abnormal . REACT LYMPHS (test Rare code = 8112643495) GIANT PLATELETS (test Present See_Comment A [Auto mated code = 5908-9) message] The system which generated this result transmitted reference range : (none). The reference range was not used to interpret this result as normal/abnormal . Lab Interpretation Abnormal (test code = 97759-0) [facility]ACT[facility] THRMPLAS [id number] 18:29:11 Test Item Value Reference Range Interpretation Comments APTT Patient (test See_Comment [Automat ed code = 3173-2) message] The system which generated this result transmitted reference range : 23 - 38 Seconds . The reference range was not used to interpr et this result as normal/abnormal . ANDREA (test code = ANDREA) The [facility] patient population mean normal value for aPTT is 30 seconds. Lab Interpretation Normal (test code = 62671-4) [facility] CenterPROTHROMBIN TIME / [id number] 18:26:49 Test Item Value Reference Range Interpretation [...] tions. Lab Interpretation (test Normal code = 48999-0) [facility] CenterTROPONIN [id number] 18:14:50 Test Item Value Reference Interpretation Comments Range TROPONIN I (test 0.013 ng/mL See_Comment [Automated code = 5625722356) message] The system which generated this result [...] biotin. Lab Interpretation Normal (test code = 64806-9) [facility] [id number] 18:11:48 Test Item Value Reference Range Interpretation Comments NT-proBNP (test code 286 pg/mL See_Comment H [Autom ated = 3078364544) message] The system which generated this result transmitted reference range : <=125. The reference range was not used to interpret this result as normal/abnormal . ANDREA (test code = ANDREA) Biotin has been reported to cause a negative bias, interpret results relative to patient's use of biotin. Lab Interpretation Abnormal (test code = 70257-5) [facility] CenterCOMP. METABOLIC PANEL (89583)2021-11-08 18:03:05 Test Item Value Reference Range Interpretation Comments NA (test code = 133 mmol/L 135-145 L 1218442558) K (test code = 5.1 mmol/L 3.5-5 H 4381225639) CL (test code = 101 mmol/L 98-108 9762028210) CO2 TOTAL (test code = 26 mmol/L 23-31 1999001178) AGAP (test code = 2-16 0236170651) BUN (test code = 16 mg/dL 7-23 9629093261) GLUCOSE (test code = 93 mg/dL 70-110 9129616549) CREATININE (test code = 0.85 mg/dL 0.6-1.25 7994816603) TOTAL BILI (test code = 0.8 mg/dL 0.1-1.5 3865638591) CALCIUM (test code = 8.4 mg/dL 8.6-10.6 L 5291021532) T PROTEIN (test code = 7.0 g/dL 6.3-8.2 7183405571) ALBUMIN (test code = 4.2 g/dL 3.5-5 9144265120) ALK PHOS (test code = 73 U/L 34-122 5280305323) ALTv (test code = 15 U/L 5-50 1742-6) AST(SGOT) (test code = 40 U/L 13-40 2827742212) eGFR (test code = mL/min/1.73m2 4204114399) ANDREA (test code = ANDREA) Association of [...] tests). Lab Interpretation Abnormal (test code = 84824-5) [facility] 18:02:25 Test Item Value Reference Range Interpretation Comments LIPASE (test code = 1758327558) 98 U/L 0-220 Lab Interpretation (test code = Normal 34874-2) [facility] CenterCB WITH [id number] 20:51:06 Test Item Value Reference Range Interpretation Comments WBC (test code = See_Comment [Automated 4090-2) message] The sy stem which generated this result transmitted reference range : 4.20 - 10.70 10*3/?L. The reference range was not used to interpret this result as normal/abnormal . RBC (test code = See_Comment L [Automated 099-8) message] The sy stem which generated this [...] (test code = 51.9 fL 38.5-51.6 H 27887-8) RDW-CV (test code = 15.9 % 12.1-15.4 H 788-0) PLT (test code = See_Comment [Automated 777-3) message] The sy stem which generated this result transmitted reference range : 150 - 328 10*3/ ?L. The reference r bret was not used to interpret this result as normal/abnormal . MPV (test code = 12.1 fL 9.8-13.0 00938-1) NRBC/100 WBC (test See_Comment [Automat ed code = 0646099033) message] The system which generated this result transmitted reference range : 0.0 - 10.0 /100 WBCs. The refer ence range was not u sed to interpret th is result as normal/abnormal . NRBC x10^3 (test code <0.01 See_Comment [Auto mated = 2540105177) message] The s ystem which generated this result transmitted reference range : 10*3/?L. The reference range was not used to interpret this result as normal/abnormal . SEG % (test code = 44 % 33-76 39859-3) BAND % (test code = 6 % 0-1 H 17142-0) LYMPH % (test code = 30 % 14-54 59515-8) REACT LYMPH % (test 3 % code = 6592591759) MONO % (test code = 12 % 0-4 H 28237-7) EOS % (test code = 5 % 0-3 H 72069-9) ANC (test code = 2.75 10*3/uL 1.99-6.95 753-4) Lab Interpretation Abnormal (test code = 78854-9) [facility] CenterTROPONIN [id number] 20:40:44 Test Item Value Reference Interpretation Comments Range TROPONIN I (test 0.009 ng/mL See_Comment [Automated code = 4390265186) message] The system which generated this result [...] biotin. Lab Interpretation Normal (test code = 53443-5) [facility]OL[facility] PAN[facility] (42087)2021-08-31 20:29:46 Test Item Value Reference Range Interpretation Comments NA (test code = 137 mmol/L 135-145 8323122086) K (test code = 5.0 mmol/L 3.5-5.0 0494717203) CL (test code = 101 mmol/L 98-108 6097214712) CO2 TOTAL (test code = 25 mmol/L 23-31 4245097859) AGAP (test code = 2-16 5217216824) BUN (test code = 14 mg/dL 7-23 1081490928) GLUCOSE (test code = 113 mg/dL 70-110 H 0422814873) CREATININE (test code = 0.82 mg/dL 0.60-1.25 6344345526) TOTAL BILI (test code = 0.4 mg/dL 0.1-1.5 2517853560) CALCIUM (test code = 9.4 mg/dL 8.6-10.6 0501789187) T PROTEIN (test code = 7.5 g/dL 6.3-8.2 2937897601) ALBUMIN (test code = 4.5 g/dL 3.5-5.0 7544702488) ALK PHOS (test code = 101 U/L 34-122 7666531946) ALTv (test code = 15 U/L 5-50 1742-6) AST(SGOT) (test code = 25 U/L 13-40 6365168220) eGFR (test code = mL/min/1.73m2 7626429181) ANDREA (test code = ANDREA) Association of [...] tests). Lab Interpretation Abnormal (test code = 71572-8) [facility] 20:29:06 Test Item Value Reference Range Interpretation Comments LIPASE (test code = 2356585178) 100 U/L 0-220 Lab Interpretation (test code = Normal 45219-3) [facility] CenterLactic Acid Whole [id number] 20:17:03 Test Item Value Reference Range Interpretation Comments LACTIC ACID (test code = 1.45 mmol/L 0.50-2.20 0081696907) Lab Interpretation (test code = Normal 05504-9) [facility] CenterCARDIAC [id number] 23:16:00 Test Item Value Reference Range Interpretation Comments HS Troponin I 1 Hr (test code = HS 18 Troponin I 1 Hr) [facility] [id number] 23:16:00 Test Item Value Reference Range Interpretation Comments HS Troponin I 0 to 1 Hour Delta (test 2 1 code = HS Troponin I 0 to 1 Hour Delta) [facility] [place], TxCE2 [employer] [id number] 23:16:00 Test Item Value Reference Range Interpretation Comments Glucose Lvl (test code = Glucose Lvl) 98 70-[address] [facility] [place], TxCE2 [employer] [id number] 23:16:00 Test Item Value Reference Range Interpretation Comments BUN (test code = BUN) 19 7-22 [facility] [facility] 23:16:00 Test Item Value Reference Range Interpretation Comments Creatinine Lvl (test code = Creatinine 0.89 0.50-1.40 Lvl) [facility] [place], TxCE2 [employer] [id number] 23:16:00 Test Item Value Reference Range Interpretation Comments Sodium Lvl (test code = Sodium Lvl) 134 135-[address] [facility] [place], TxCE2 [employer] [id number] 23:16:00 Test Item Value Reference Range Interpretation Comments Potassium Lvl (test code = Potassium 4.1 3.5-5.1 Lvl) [facility] [place], TxCE2 [employer] [id number] 23:16:00 Test Item Value Reference Range Interpretation Comments Chloride Lvl (test code = Chloride Lvl) 105 95-[address] [facility] [place], TxCE2 [employer] [id number] 23:16:00 Test Item Value Reference Range Interpretation Comments CO2 (test code = CO2) 25 24-[address] [facility] [place], TxCE2 [employer] [id number] 23:16:00 Test Item Value Reference Range Interpretation Comments Calcium Lvl (test code = Calcium Lvl) 9.0 8.5-10.[address] [facility] [place], TxCE2 [employer] [id number] 23:16:00 Test Item Value Reference Range Interpretation Comments AGAP (test code = AGAP) 8.1 10.0-20.[address] [facility] [place], TxCE2 [employer] [id number] 23:16:00 Test Item Value Reference Range Interpretation Comments eGFR (test code = eGFR) 86 [facility] HospitalBoardEvals [id number] 23:16:00 Test Item Value Reference Range Interpretation Comments HS Troponin I 1 Hr (test code = HS 18 Troponin I 1 Hr) [facility] HospitalZoomForthAC [id number] 23:16:00 Test Item Value Reference Range Interpretation Comments HS Troponin I 0 to 1 Hour Delta (test 2 1 code = HS Troponin I 0 to 1 Hour Delta) [facility] [employer] [id number] 23:16:00 Test Item Value Reference Range Interpretation Comments Glucose Lvl (test code = Glucose Lvl) 98 70-99 [facility] [employer] [id number] 23:16:00 Test Item Value Reference Range Interpretation Comments BUN (test code = BUN) 19 7- [facility] [employer]2022-03-25 23:16:00 Test Item Value Reference Range Interpretation Comments Creatinine Lvl (test code = Creatinine 0.89 0.50-1.40 Lvl) [facility] [employer]2022-03-25 23:16:00 Test Item Value Reference Range Interpretation Comments Sodium Lvl (test code = Sodium Lvl) 134 135-145 [facility] [employer]2022-03-25 23:16:00 Test Item Value Reference Range Interpretation Comments Potassium Lvl (test code = Potassium 4.1 3.5-5.1 Lvl) [facility] [employer]2022-03-25 23:16:00 Test Item Value Reference Range Interpretation Comments Chloride Lvl (test code = Chloride Lvl) 105 95-109 [facility] [employer]2022-03-25 23:16:00 Test Item Value Reference Range Interpretation Comments CO2 (test code = CO2) 25 24-32 [facility] [employer]2022-03-25 23:16:00 Test Item Value Reference Range Interpretation Comments Calcium Lvl (test code = Calcium Lvl) 9.0 8.5-10.5 [facility] [employer]2022-03-25 23:16:00 Test Item Value Reference Range Interpretation Comments AGAP (test code = AGAP) 8.1 10.0-20.0 [facility] [employer]2022-03-25 23:16:00 Test Item Value Reference Range Interpretation Comments eGFR (test code = eGFR) 86 [facility] HospitalYingke Industrial2022-03-25 23:16:00 Test Item Value Reference Range Interpretation Comments HS Troponin I 1 Hr (test code = HS 18 Troponin I 1 Hr) [facility] [place], TxPhilrealestates [id number] 23:16:00 Test Item Value Reference Range Interpretation Comments HS Troponin I 0 to 1 Hour Delta (test 2 1 code = HS Troponin I 0 to 1 Hour Delta) [facility] HospitalProject WBS [id number] 23:16:00 Test Item Value Reference Range Interpretation Comments Glucose Lvl (test code = Glucose Lvl) 98 70-99 [facility] HospitalProject WBS [id number] 23:16:00 Test Item Value Reference Range Interpretation Comments BUN (test code = BUN) 19 7-22 [facility] Hospital[facility] WBS [id number] 23:16:00 Test Item Value Reference Range Interpretation Comments Creatinine Lvl (test code = Creatinine 0.89 0.50-1.40 Lvl) [facility] HospitalProject WBS [id number] 23:16:00 Test Item Value Reference Range Interpretation Comments Sodium Lvl (test code = Sodium Lvl) 134 135-145 [facility] HospitalProject WBS [id number] 23:16:00 Test Item Value Reference Range Interpretation Comments Potassium Lvl (test code = Potassium 4.1 3.5-5.1 Lvl) [facility] HospitalProject WBS [id number] 23:16:00 Test Item Value Reference Range Interpretation Comments Chloride Lvl (test code = Chloride Lvl) 105 95-109 [facility] HospitalProject WBS [id number] 23:16:00 Test Item Value Reference Range Interpretation Comments CO2 (test code = CO2) 25 24-[address] [facility] [place], TxCE2 [employer] [id number] 23:16:00 Test Item Value Reference Range Interpretation Comments Calcium Lvl (test code = Calcium Lvl) 9.0 8.5-10.5 [facility] Hospital[facility] WBS [id number] 23:16:00 Test Item Value Reference Range Interpretation Comments AGAP (test code = AGAP) 8.1 10.0-20.0 [facility] HospitalProject WBS [id number] 23:16:00 Test Item Value Reference Range Interpretation Comments eGFR (test code = eGFR) 86 [facility] HospitalMFG.comBAPTIST [facility] [id number] 22:08:00 Test Item Value Reference Range Interpretation Comments HS Troponin I Baseline (test code = HS 16 Troponin I Baseline) [facility] [id number] 22:08:00 Test Item Value Reference Range Interpretation Comments Coronavirus (COVID-19) Not Detected (05/30/21 PAULA (test code = 5:08 PM) Coronavirus (COVID-19) PAULA) [facility] [id number] 22:08:00 Test Item Value Reference Range Interpretation Comments HS Troponin I Baseline (test code = HS 16 Troponin I Baseline) [facility] [id number] 22:08:00 Test Item Value Reference Range Interpretation Comments Coronavirus (COVID-19) Not Detected (05/30/21 PAULA (test code = 5:08 PM) Coronavirus (COVID-19) PAULA) [facility] [id number] 22:08:00 Test Item Value Reference Range Interpretation Comments HS Troponin I Baseline (test code = HS 16 Troponin I Baseline) [facility] [id number] 22:08:00 Test Item Value Reference Range Interpretation Comments Coronavirus (COVID-19) Not Detected (05/30/21 PAULA (test code = 5:08 PM) Coronavirus (COVID-19) PAULA) [facility] [place], TxMeilimei [id number] 16:52:00 Test Item Value Reference Range Interpretation Comments U Amph Scr (test code Negative *NA*(04/06/21 = U Amph Scr) 10:52 AM) [facility] [id number] 16:52:00 Test Item Value Reference Range Interpretation Comments U Vy Scr (test code Negative *NA*(04/06/21 = U Vy Scr) 10:52 AM) [facility] [place], TxDRUG [id number] 16:52:00 Test Item Value Reference Range Interpretation Comments U Benzodiaz Scr (test Negative *NA*(04/06/21 code = U Benzodiaz Scr) 10:52 AM) [facility] [id number] 16:52:00 Test Item Value Reference Range Interpretation Comments U Cocaine Scr (test Negative *NA*(04/06/21 code = U Cocaine Scr) 10:52 AM) [facility] [id number] 16:52:00 Test Item Value Reference Range Interpretation Comments U Cannab Scr (test Negative *NA*(04/06/21 code = U Cannab Scr) 10:52 AM) [facility] [id number] 16:52:00 Test Item Value Reference Range Interpretation Comments U Opiate Scr (test Negative *NA*(04/06/21 code = U Opiate Scr) 10:52 AM) [facility] HospitalannDRUG [id number] 16:52:00 Test Item Value Reference Range Interpretation Comments U Phencyclidine Scr (test Negative code = U Phencyclidine *NA*(04/06/21 10:52 Scr) AM) [facility] HospitalannDR[facility] [id number] 16:52:00 Test Item Value Reference Range Interpretation Comments UDS Note (test code = See Note (04/06/21 10:52 UDS Note) AM) [facility] HospitalannDR[facility] [id number] 16:52:00 Test Item Value Reference Range Interpretation Comments U Amph Scr (test code Negative *NA*(04/06/21 = U Amph Scr) 10:52 AM) [facility] [place], TxDRUG [id number] 16:52:00 Test Item Value Reference Range Interpretation Comments U Vy Scr (test code Negative *NA*(04/06/21 = U Vy Scr) 10:52 AM) [facility] HospitalannDR[facility] [id number] 16:52:00 Test Item Value Reference Range Interpretation Comments U Benzodiaz Scr (test Negative *NA*(04/06/21 code = U Benzodiaz Scr) 10:52 AM) [facility] HospitalannDR[facility] [id number] 16:52:00 Test Item Value Reference Range Interpretation Comments U Cocaine Scr (test Negative *NA*(04/06/21 code = U Cocaine Scr) 10:52 AM) [facility] HospitalannDR[facility] [id number] 16:52:00 Test Item Value Reference Range Interpretation Comments U Cannab Scr (test Negative *NA*(04/06/21 code = U Cannab Scr) 10:52 AM) [facility] HospitalannDR[facility] [id number] 16:52:00 Test Item Value Reference Range Interpretation Comments U Opiate Scr (test Negative *NA*(04/06/21 code = U Opiate Scr) 10:52 AM) [facility] HospitalannDR[facility] [id number] 16:52:00 Test Item Value Reference Range Interpretation Comments U Phencyclidine Scr (test Negative code = U Phencyclidine *NA*(04/06/21 10:52 Scr) AM) [facility] [id number] 16:52:00 Test Item Value Reference Range Interpretation Comments UDS Note (test code = See Note (04/06/21 10:52 UDS Note) AM) [facility] HospitalannDR[facility] [id number] 16:52:00 Test Item Value Reference Range Interpretation Comments U Amph Scr (test code Negative *NA*(04/06/21 = U Amph Scr) 10:52 AM) [facility]annDR[facility] [id number] 16:52:00 Test Item Value Reference Range Interpretation Comments U Vy Scr (test code Negative *NA*(04/06/21 = U Vy Scr) 10:52 AM) [facility] [id number] 16:52:00 Test Item Value Reference Range Interpretation Comments U Benzodiaz Scr (test Negative *NA*(04/06/21 code = U Benzodiaz Scr) 10:52 AM) [facility]annDR[facility] [id number] 16:52:00 Test Item Value Reference Range Interpretation Comments U Cocaine Scr (test Negative *NA*(04/06/21 code = U Cocaine Scr) 10:52 AM) [facility] HospitalannDR[facility] [id number] 16:52:00 Test Item Value Reference Range Interpretation Comments U Cannab Scr (test Negative *NA*(04/06/21 code = U Cannab Scr) 10:52 AM) [facility]annDR[facility] [id number] 16:52:00 Test Item Value Reference Range Interpretation Comments U Opiate Scr (test Negative *NA*(04/06/21 code = U Opiate Scr) 10:52 AM) [facility]annDR[facility] [id number] 16:52:00 Test Item Value Reference Range Interpretation Comments U Phencyclidine Scr (test Negative code = U Phencyclidine *NA*(04/06/21 10:52 Scr) AM) [facility] HospitalannDR[facility] [id number] 16:52:00 Test Item Value Reference Range Interpretation Comments UDS Note (test code = See Note (04/06/21 10:52 UDS Note) AM) [facility] [place], [id number] 15:00:00 Test Item Value Reference Range Interpretation Comments Coronavirus (COVID-19) Not Detected (04/06/21 PAULA (test code = 9:00 AM) Coronavirus (COVID-19) PAULA) [facility] [id number] 15:00:00 Test Item Value Reference Range Interpretation Comments Coronavirus (COVID-19) Not Detected (04/06/21 PAULA (test code = 9:00 AM) Coronavirus (COVID-19) PAULA) [facility] [id number] 15:00:00 Test Item Value Reference Range Interpretation Comments Coronavirus (COVID-19) Not Detected (04/06/21 PAULA (test code = 9:00 AM) Coronavirus (COVID-19) PAULA) [facility] [employer] [id number] 14:17:00 Test Item Value Reference Range Interpretation Comments ABO/Rh (test code = ABO/Rh) O POS [facility] [employer] [id number] 14:17:00 Test Item Value Reference Range Interpretation Comments Antibody Scrn (test Negative (04/06/21 8:17 code = Antibody Scrn) AM) [employer] [id number] 14:17:00 Test Item Value Reference Range Interpretation Comments BNP (test code = BNP) 43 [facility] [employer] [id number] 14:17:00 Test Item Value Reference Range Interpretation Comments HS Troponin I (test code = HS Troponin 24 I) [employer] [id number] 14:17:00 Test Item Value Reference Range Interpretation Comments Glucose Lvl (test code = Glucose Lvl) 99 70-99 [facility] [employer]2022-01-30 14:17:00 Test Item Value Reference Range Interpretation Comments BUN (test code = BUN) 18 7-22 [facility] [employer] [id number] 14:17:00 Test Item Value Reference Range Interpretation Comments Creatinine Lvl (test code = Creatinine 0.88 0.50-1.40 Lvl) [employer] [id number] 14:17:00 Test Item Value Reference Range Interpretation Comments Sodium Lvl (test code = Sodium Lvl) 132 135-145 [facility] [employer]2022-01-30 14:17:00 Test Item Value Reference Range Interpretation Comments Potassium Lvl (test code = Potassium 3.9 3.5-5.1 Lvl) [employer]2022-01-30 14:17:00 Test Item Value Reference Range Interpretation Comments Chloride Lvl (test code = Chloride Lvl) 103 95-[address] [facility] [place], TxCE2 [employer] [id number] 14:17:00 Test Item Value Reference Range Interpretation Comments CO2 (test code = CO2) 24 24-32 [place] [id number] 14:17:00 Test Item Value Reference Range Interpretation Comments Calcium Lvl (test code = Calcium Lvl) 9.3 8.5-10.5 [place] 114652-01-30 14:17:00 Test Item Value Reference Range Interpretation Comments AGAP (test code = AGAP) 8.9 10.0-20.0 [facility] Hospital[facility] [id number] 14:17:00 Test Item Value Reference Range Interpretation Comments eGFR (test code = eGFR) 86 [facility]2022-01-30 14:17:00 Test Item Value Reference Range Interpretation Comments Total Protein (test code = Total 7.9 6.4-8.4 Protein) [facility]2022-01-30 14:17:00 Test Item Value Reference Range Interpretation Comments Albumin Lvl (test code = Albumin Lvl) 3.6 3.5-5.[address] [facility] [place], TxCE2 [employer] [id number] 14:17:00 Test Item Value Reference Range Interpretation Comments ALT (test code = ALT) 25 See_Comment [Auto mated message] The system which ge nerated this result transmit jw reference range : <=65. The reference range was not used to interpr et this result as mateo l/abnormal. [facility] HospitalProject WBS [id number] 14:17:00 Test Item Value Reference Range Interpretation Comments AST (test code = AST) 30 See_Comment [Auto mated message] The system which ge nerated this result transmit jw reference range : <=37. The reference range was not used to interpr et this result as mateo l/abnormal. [facility] [place], TxCE2 [employer] [id number] 14:17:00 Test Item Value Reference Range Interpretation Comments Alk Phos (test code = Alk Phos) 103 39-[address] [facility] [place], TxCE2 [employer] [id number] 14:17:00 Test Item Value Reference Range Interpretation Comments Bili Total (test code = Bili Total) 0.6 0.2-1.3 [place] 114652-01-30 14:17:00 Test Item Value Reference Range Interpretation Comments Bili Direct (test code 0.1 See_Comment [Aut omated message] The = Bili Direct) system which generated this result tra nsmitted reference range : <=0.3. The reference r bret was not used to int erpret this result as mateo l/abnormal. [place] 114652-01-30 14:17:00 Test Item Value Reference Range Interpretation Comments Bili Indirect (test 0.5 See_Comment [Automa jw message] The code = Bili Indirect) system which generated this result tra nsmitted reference range : <=1.0. The reference r bret was not used to int erpret this result as normal/abnormal . [place] 114652-01-30 14:17:00 Test Item Value Reference Range Interpretation Comments Globulin (test code = Globulin) 4.3 2.7-4.2 [place] 114652-01-30 14:17:00 Test Item Value Reference Range Interpretation Comments A/G Ratio (test code = A/G Ratio) 0.8 1 0.7-1.6 [place] [address]-01-30 14:17:00 Test Item Value Reference Range Interpretation Comments Magnesium Lvl (test code = Magnesium 2.1 1.8-2.4 Lvl) [place] 114652-01-30 14:17:00 Test Item Value Reference Range Interpretation Comments Phosphorus (test code = Phosphorus) 2.8 2.5-4.5 [place] 333252-01-30 14:17:00 Test Item Value Reference Range Interpretation Comments WBC (test code = WBC) 4.6 3.7-10.4 [place] 333252-01-30 14:17:00 Test Item Value Reference Range Interpretation Comments RBC (test code = RBC) 3.78 4.70-6.10 [place] 333252-01-30 14:17:00 Test Item Value Reference Range Interpretation Comments Hgb (test code = Hgb) 13.1 14.0-18.0 [place] 333252-01-30 14:17:00 Test Item Value Reference Range Interpretation Comments Hct (test code = Hct) 37.8 42.0-54.0 [place] 333252-01-30 14:17:00 Test Item Value Reference Range Interpretation Comments MCV (test code = MCV) 99.9 80.0-94.0 [place] 333252-01-30 14:17:00 Test Item Value Reference Range Interpretation Comments MCH (test code = MCH) 34.5 pg 27.0-31.0 [place] 333252-01-30 14:17:00 Test Item Value Reference Range Interpretation Comments MCHC (test code = MCHC) 34.5 32.0-36.0 [place] 333252-01-30 14:17:00 Test Item Value Reference Range Interpretation Comments RDW (test code = RDW) 16.8 11.5-14.5 [place] 333252-01-30 14:17:00 Test Item Value Reference Range Interpretation Comments Platelet (test code = Platelet) 181 133-450 [facility]JonvpflYFWEOJPRBK2507-22-59 14:17:00 Test Item Value Reference Range Interpretation Comments MPV (test code = MPV) 9.7 7.4-10.4 [place] 333252-01-30 14:17:00 Test Item Value Reference Range Interpretation Comments PT (test code = PT) 13.8 s 12.0-14.7 [place] 333252-01-30 14:17:00 Test Item Value Reference Range Interpretation Comments INR (test code = INR) 1.07 1 0.85-1.17 [place] 333252-01-30 14:17:00 Test Item Value Reference Range Interpretation Comments PTT (test code = PTT) 34.6 s 22.9-35.8 [place] 333252-01-30 14:17:00 Test Item Value Reference Range Interpretation Comments Neutrophils # (test code = Neutrophils 2.7 1.5-8.1 #) [place] 333252-01-30 14:17:00 Test Item Value Reference Range Interpretation Comments Lymphocytes # (test code = Lymphocytes 1.2 1.0-5.5 #) [place] 333252-01-30 14:17:00 Test Item Value Reference Range Interpretation Comments Monocytes # (test code 0.5 See_Comment [Aut omated message] The = Monocytes #) system which generated this result tra nsmitted reference range : <=0.8. The reference r bret was not used to int erpret this result as normal/abnormal . [facility] [id number] 14:17:00 Test Item Value Reference Range Interpretation Comments Eosinophils # (test code 0.3 See_Comment [A utomated message] The = Eosinophils #) system whic h generated this result tra nsmitted reference range : <=0.5. The reference r bret was not used to int erpret this result as normal/abnormal . [facility] CenterFytusdbSGZGUCLXJM3591-28-52 14:17:00 Test Item Value Reference Range Interpretation Comments Segs (test code = Segs) 57.0 45.0-75.0 [place] 333252-01-30 14:17:00 Test Item Value Reference Range Interpretation Comments Bands (test code = 1.0 See_Comment [Automat ed message] The Bands) system which ge nerated this result transmit jw reference range : <=11.0. The reference r bret was not used to interpr et this result as mateo l/abnormal. [facility] CenterPuciqgqLJAXMLFKKF0196-68-33 14:17:00 Test Item Value Reference Range Interpretation Comments Lymphocytes (test code = Lymphocytes) 26.0 20.0-40.0 [place] 333252-01-30 14:17:00 Test Item Value Reference Range Interpretation Comments Monocytes (test code = Monocytes) 10.0 2.0-12.0 [place] 333252-01-30 14:17:00 Test Item Value Reference Range Interpretation Comments Eosinophils (test code = 6.0 See_Comment [A utomated message] The Eosinophils) system which ge nerated this result tra nsmitted reference range : <=4.0. The reference r bret was not used to int erpret this result as normal/abnormal . [facility] CenterNeykcbvDYFXAQTGPP1333-70-49 14:17:00 Test Item Value Reference Range Interpretation Comments Atypical Lymphs (test code = Atypical 0.0 Lymphs) [place] 333252-01-30 14:17:00 Test Item Value Reference Range Interpretation Comments Anisocyte (test code = 1+ *ABN*(04/06/21 Anisocyte) 8:17 AM) [place] 333252-01-30 14:17:00 Test Item Value Reference Range Interpretation Comments Macrocyte (test code = 1+ *ABN*(04/06/21 Macrocyte) 8:17 AM) [facility] [place], TxHntwffkGHPJJHZBNG8400-03-97 14:17:00 Test Item Value Reference Range Interpretation Comments Large Plt (test code Moderate *ABN*(04/06/21 = Large Plt) 8:17 AM) [facility] [place], TxCrnkazqXYBFUKXNXD3623-08-88 14:17:00 Test Item Value Reference Range Interpretation Comments Giant Plt (test code = Giant Plt) Occasional [facility] [place], TxUwcgoyfHEKSDI2340-10-88 14:17:00 Test Item Value Reference Range Interpretation Comments Trig (test code = Trig) [address] [facility] [place], TxPwzcgrjECHSZM7907-77-27 14:17:00 Test Item Value Reference Range Interpretation Comments Chol (test code = Chol) [address] [facility] [place], TxApcbgdqGGNAIT3851-99-94 14:17:00 Test Item Value Reference Range Interpretation Comments HDL (test code = HDL) [address] [facility] [place], TxWvofktsQMACGA7335-46-41 14:17:00 Test Item Value Reference Range Interpretation Comments CHD Risk (test code = CHD Risk) 4.38 1 4.00-7.[address] [facility] [place], TxIjcwcbsLLHZBQ4522-94-08 14:17:00 Test Item Value Reference Range Interpretation Comments LDL (Calculated) (test code = LDL 97 (Calculated)) [facility]Efck[facility]okIFCRPG7666-72-24 14:17:00 Test Item Value Reference Range Interpretation Comments VLDL (test code = VLDL) [address] [facility] [place], TxPARATHYROID [id number] 14:17:00 Test Item Value Reference Range Interpretation Comments Ca Ion WB (test code = Ca Ion WB) 1.21 1.05-1.25 [facility] [id number] 14:17:00 Test Item Value Reference Range Interpretation Comments Ca Norm WB (test code = Ca Norm WB) 1.17 1.05-1.25 [facility] HospitalHotel [facility] Inc[facility] [id number] 14:17:00 Test Item Value Reference Range Interpretation Comments Hgb A1C (test code = Hgb A1C) 5.6 [facility] HospitalPro Player Connect [id number] 14:17:00 Test Item Value Reference Range Interpretation Comments ABO/Rh (test code = ABO/Rh) O POS [facility] [employer] [id number] 14:17:00 Test Item Value Reference Range Interpretation Comments Antibody Scrn (test Negative (04/06/21 8:17 code = Antibody Scrn) AM) The [facility] [id number] 14:17:00 Test Item Value Reference Range Interpretation Comments BNP (test code = BNP) 43 [facility] [id number] 14:17:00 Test Item Value Reference Range Interpretation Comments HS Troponin I (test code = HS Troponin 24 I) [facility]2022-01-30 14:17:00 Test Item Value Reference Range Interpretation Comments Glucose Lvl (test code = Glucose Lvl) 99 70-99 [facility]2022-01-30 14:17:00 Test Item Value Reference Range Interpretation Comments BUN (test code = BUN) 18 7-22 [facility]2022-01-30 14:17:00 Test Item Value Reference Range Interpretation Comments Creatinine Lvl (test code = Creatinine 0.88 0.50-1.40 Lvl) [facility]2022-01-30 14:17:00 Test Item Value Reference Range Interpretation Comments Sodium Lvl (test code = Sodium Lvl) 132 135-145 [facility]2022-01-30 14:17:00 Test Item Value Reference Range Interpretation Comments Potassium Lvl (test code = Potassium 3.9 3.5-5.1 Lvl) [facility]2022-01-30 14:17:00 Test Item Value Reference Range Interpretation Comments Chloride Lvl (test code = Chloride Lvl) 103 95-109 [facility]2022-01-30 14:17:00 Test Item Value Reference Range Interpretation Comments CO2 (test code = CO2) 24 24-32 [facility]2022-01-30 14:17:00 Test Item Value Reference Range Interpretation Comments Calcium Lvl (test code = Calcium Lvl) 9.3 8.5-10.5 [facility]2022-01-30 14:17:00 Test Item Value Reference Range Interpretation Comments AGAP (test code = AGAP) 8.9 10.0-20.0 [facility]2022-01-30 14:17:00 Test Item Value Reference Range Interpretation Comments eGFR (test code = eGFR) 86 [facility]2022-01-30 14:17:00 Test Item Value Reference Range Interpretation Comments Total Protein (test code = Total 7.9 6.4-8.4 Protein) [place] 114652-01-30 14:17:00 Test Item Value Reference Range Interpretation Comments Albumin Lvl (test code = Albumin Lvl) 3.6 3.5-5.0 [place] 114652-01-30 14:17:00 Test Item Value Reference Range Interpretation Comments ALT (test code = ALT) 25 See_Comment [Auto mated message] The system which ge nerated this result transmit jw reference range : <=65. The reference range was not used to interpr et this result as mateo l/abnormal. [place] 114652-01-30 14:17:00 Test Item Value Reference Range Interpretation Comments AST (test code = AST) 30 See_Comment [Auto mated message] The system which ge nerated this result transmit jw reference range : <=37. The reference range was not used to interpr et this result as mateo l/abnormal. [place] 114[address]-01-30 14:17:00 Test Item Value Reference Range Interpretation Comments Alk Phos (test code = Alk Phos) 103 39-136 [place] 114652-01-30 14:17:00 Test Item Value Reference Range Interpretation Comments Bili Total (test code = Bili Total) 0.6 0.2-1.3 [place] 114[address]-01-30 14:17:00 Test Item Value Reference Range Interpretation Comments Bili Direct (test code 0.1 See_Comment [Aut omated message] The = Bili Direct) system which generated this result tra nsmitted reference range : <=0.3. The reference r bret was not used to int erpret this result as mateo l/abnormal. [facility] [employer] [id number] 14:17:00 Test Item Value Reference Range Interpretation Comments Bili Indirect (test 0.5 See_Comment [Automa jw message] The code = Bili Indirect) system which generated this result tra nsmitted reference range : <=1.0. The reference r bret was not used to int erpret this result as normal/abnormal . [facility] T[facility] [employer] [id number] 14:17:00 Test Item Value Reference Range Interpretation Comments Globulin (test code = Globulin) 4.3 2.7-4.2 [facility]2022-01-30 14:17:00 Test Item Value Reference Range Interpretation Comments A/G Ratio (test code = A/G Ratio) 0.8 1 0.7-1.6 [place] 114[address]-01-30 14:17:00 Test Item Value Reference Range Interpretation Comments Magnesium Lvl (test code = Magnesium 2.1 1.8-2.4 Lvl) [place] 114[address]-01-30 14:17:00 Test Item Value Reference Range Interpretation Comments Phosphorus (test code = Phosphorus) 2.8 2.5-4.5 [place] 333252-01-30 14:17:00 Test Item Value Reference Range Interpretation Comments WBC (test code = WBC) 4.6 3.7-10.4 [place] 333252-01-30 14:17:00 Test Item Value Reference Range Interpretation Comments RBC (test code = RBC) 3.78 4.70-6.10 [place] 333252-01-30 14:17:00 Test Item Value Reference Range Interpretation Comments Hgb (test code = Hgb) 13.1 14.0-18.0 [place] 333252-01-30 14:17:00 Test Item Value Reference Range Interpretation Comments Hct (test code = Hct) 37.8 42.0-54.0 [place] 333252-01-30 14:17:00 Test Item Value Reference Range Interpretation Comments MCV (test code = MCV) 99.9 80.0-94.0 [place] 333252-01-30 14:17:00 Test Item Value Reference Range Interpretation Comments MCH (test code = MCH) 34.5 pg 27.0-31.0 [place] 333252-01-30 14:17:00 Test Item Value Reference Range Interpretation Comments MCHC (test code = MCHC) 34.5 32.0-36.0 [place] 333252-01-30 14:17:00 Test Item Value Reference Range Interpretation Comments RDW (test code = RDW) 16.8 11.5-14.5 [place] 333252-01-30 14:17:00 Test Item Value Reference Range Interpretation Comments Platelet (test code = Platelet) 181 133-450 [place] 333252-01-30 14:17:00 Test Item Value Reference Range Interpretation Comments MPV (test code = MPV) 9.7 7.4-10.4 [place] 333252-01-30 14:17:00 Test Item Value Reference Range Interpretation Comments PT (test code = PT) 13.8 s 12.0-14.7 [place] 333252-01-30 14:17:00 Test Item Value Reference Range Interpretation Comments INR (test code = INR) 1.07 1 0.85-1.17 [place] 333252-01-30 14:17:00 Test Item Value Reference Range Interpretation Comments PTT (test code = PTT) 34.6 s 22.9-35.8 [place] 333252-01-30 14:17:00 Test Item Value Reference Range Interpretation Comments Neutrophils # (test code = Neutrophils 2.7 1.5-8.1 #) [place] 333252-01-30 14:17:00 Test Item Value Reference Range Interpretation Comments Lymphocytes # (test code = Lymphocytes 1.2 1.0-5.5 #) [id number] 14:17:00 Test Item Value Reference Range Interpretation Comments Monocytes # (test code 0.5 See_Comment [Aut omated message] The = Monocytes #) system which generated this result tra nsmitted reference range : <=0.8. The reference r bret was not used to int erpret this result as normal/abnormal . [place] 333252-01-30 14:17:00 Test Item Value Reference Range Interpretation Comments Eosinophils # (test code 0.3 See_Comment [A utomated message] The = Eosinophils #) system whic h generated this result tra nsmitted reference range : <=0.5. The reference r bret was not used to int erpret this result as normal/abnormal . [place] 333252-01-30 14:17:00 Test Item Value Reference Range Interpretation Comments Segs (test code = Segs) 57.0 45.0-75.0 [place] 333252-01-30 14:17:00 Test Item Value Reference Range Interpretation Comments Bands (test code = 1.0 See_Comment [Automat ed message] The Bands) system which ge nerated this result transmit jw reference range : <=11.0. The reference r bret was not used to interpr et this result as mateo l/abnormal. [facility] [id number] 14:17:00 Test Item Value Reference Range Interpretation Comments Lymphocytes (test code = Lymphocytes) 26.0 20.0-40.0 [place] 333252-01-30 14:17:00 Test Item Value Reference Range Interpretation Comments Monocytes (test code = Monocytes) 10.0 2.0-12.0 [place] 333252-01-30 14:17:00 Test Item Value Reference Range Interpretation Comments Eosinophils (test code = 6.0 See_Comment [A utomated message] The Eosinophils) system which ge nerated this result tra nsmitted reference range : <=4.0. The reference r bret was not used to int erpret this result as normal/abnormal . [place] 333252-01-30 14:17:00 Test Item Value Reference Range Interpretation Comments Atypical Lymphs (test code = Atypical 0.0 Lymphs) [facility] CenterJdcafhyRDSLJWNFGY1224-34-27 14:17:00 Test Item Value Reference Range Interpretation Comments Anisocyte (test code = 1+ *ABN*(04/06/21 Anisocyte) 8:17 AM) [place] 333252-01-30 14:17:00 Test Item Value Reference Range Interpretation Comments Macrocyte (test code = 1+ *ABN*(04/06/21 Macrocyte) 8:17 AM) [place] 333252-01-30 14:17:00 Test Item Value Reference Range Interpretation Comments Large Plt (test code Moderate *ABN*(04/06/21 = Large Plt) 8:17 AM) [place] 333252-01-30 14:17:00 Test Item Value Reference Range Interpretation Comments Giant Plt (test code = Giant Plt) Occasional [place] 656482-01-30 14:17:00 Test Item Value Reference Range Interpretation Comments Trig (test code = Trig) 138 [place] 656482-01-30 14:17:00 Test Item Value Reference Range Interpretation Comments Chol (test code = Chol) 162 [place] 656482-01-30 14:17:00 Test Item Value Reference Range Interpretation Comments HDL (test code = HDL) 37 [facility] HospitalKpxrrgzVOZFJN4248-72-59 14:17:00 Test Item Value Reference Range Interpretation Comments CHD Risk (test code = CHD Risk) 4.38 1 4.00-7.30 [facility] HospitalVdgdnhmTKETUY0491-34-97 14:17:00 Test Item Value Reference Range Interpretation Comments LDL (Calculated) (test code = LDL 97 (Calculated)) [facility] HospitalBanjfkrXOENXG2208-88-31 14:17:00 Test Item Value Reference Range Interpretation Comments VLDL (test code = VLDL) 28 1 [facility] HospitalReachDynamicsROID [id number] 14:17:00 Test Item Value Reference Range Interpretation Comments Ca Ion WB (test code = Ca Ion WB) 1.21 1.05-1.25 [facility] HospitalMegaHoot [id number] 14:17:00 Test Item Value Reference Range Interpretation Comments Ca Norm WB (test code = Ca Norm WB) 1.17 1.05-1.25 [facility] HospitalListMinut [id number] 14:17:00 Test Item Value Reference Range Interpretation Comments Hgb A1C (test code = Hgb A1C) 5.6 [facility] [employer] [id number] 14:17:00 Test Item Value Reference Range Interpretation Comments ABO/Rh (test code = ABO/Rh) O POS [facility] [employer] [id number] 14:17:00 Test Item Value Reference Range Interpretation Comments Antibody Scrn (test Negative (04/06/21 8:17 code = Antibody Scrn) AM) [facility] HospitalBoardEvals [id number] 14:17:00 Test Item Value Reference Range Interpretation Comments BNP (test code = BNP) 43 [facility] HospitalBoard[facility] [id number] 14:17:00 Test Item Value Reference Range Interpretation Comments HS Troponin I (test code = HS Troponin 24 I) [facility] [employer] [id number] 14:17:00 Test Item Value Reference Range Interpretation Comments Glucose Lvl (test code = Glucose Lvl) 99 70-99 [facility] [place] [id number] 14:17:00 Test Item Value Reference Range Interpretation Comments BUN (test code = BUN) 18 7-22 [facility] [place] [id number] 14:17:00 Test Item Value Reference Range Interpretation Comments Creatinine Lvl (test code = Creatinine 0.88 0.50-1.40 Lvl) [place] 114652-01-30 14:17:00 Test Item Value Reference Range Interpretation Comments Sodium Lvl (test code = Sodium Lvl) 132 135-145 [place] 114652-01-30 14:17:00 Test Item Value Reference Range Interpretation Comments Potassium Lvl (test code = Potassium 3.9 3.5-5.1 Lvl) [place] 114652-01-30 14:17:00 Test Item Value Reference Range Interpretation Comments Chloride Lvl (test code = Chloride Lvl) 103 95-109 [place] 114652-01-30 14:17:00 Test Item Value Reference Range Interpretation Comments CO2 (test code = CO2) 24 24-32 [place] 114652-01-30 14:17:00 Test Item Value Reference Range Interpretation Comments Calcium Lvl (test code = Calcium Lvl) 9.3 8.5-10.5 [place] 114[address]-01-30 14:17:00 Test Item Value Reference Range Interpretation Comments AGAP (test code = AGAP) 8.9 10.0-20.0 [place] 114[address]-01-30 14:17:00 Test Item Value Reference Range Interpretation Comments eGFR (test code = eGFR) 86 [place] 114652-01-30 14:17:00 Test Item Value Reference Range Interpretation Comments Total Protein (test code = Total 7.9 6.4-8.4 Protein) [place] 114[address]-01-30 14:17:00 Test Item Value Reference Range Interpretation Comments Albumin Lvl (test code = Albumin Lvl) 3.6 3.5-5.0 [place] 114[address]-01-30 14:17:00 Test Item Value Reference Range Interpretation Comments ALT (test code = ALT) 25 See_Comment [Auto mated message] The system which ge nerated this result transmit jw reference range : <=65. The reference range was not used to interpr et this result as mateo l/abnormal. [place] 114652-01-30 14:17:00 Test Item Value Reference Range Interpretation Comments AST (test code = AST) 30 See_Comment [Auto mated message] The system which ge nerated this result transmit jw reference range : <=37. The reference range was not used to interpr et this result as mateo l/abnormal. [place] 114652-01-30 14:17:00 Test Item Value Reference Range Interpretation Comments Alk Phos (test code = Alk Phos) 103 39-136 [place] 114652-01-30 14:17:00 Test Item Value Reference Range Interpretation Comments Bili Total (test code = Bili Total) 0.6 0.2-1.3 [place] 114[address]-01-30 14:17:00 Test Item Value Reference Range Interpretation Comments Bili Direct (test code 0.1 See_Comment [Aut omated message] The = Bili Direct) system which generated this result tra nsmitted reference range : <=0.3. The reference r bret was not used to int erpret this result as mateo l/abnormal. [place] 114652-01-30 14:17:00 Test Item Value Reference Range Interpretation Comments Bili Indirect (test 0.5 See_Comment [Automa jw message] The code = Bili Indirect) system which generated this result tra nsmitted reference range : <=1.0. The reference r bret was not used to int erpret this result as normal/abnormal . [place] 114652-01-30 14:17:00 Test Item Value Reference Range Interpretation Comments Globulin (test code = Globulin) 4.3 2.7-4.2 [place] 114[address]-01-30 14:17:00 Test Item Value Reference Range Interpretation Comments A/G Ratio (test code = A/G Ratio) 0.8 1 0.7-1.6 [place] [address]-01-30 14:17:00 Test Item Value Reference Range Interpretation Comments Magnesium Lvl (test code = Magnesium 2.1 1.8-2.4 Lvl) [place] 114652-01-30 14:17:00 Test Item Value Reference Range Interpretation Comments Phosphorus (test code = Phosphorus) 2.8 2.5-4.5 [place] 333252-01-30 14:17:00 Test Item Value Reference Range Interpretation Comments WBC (test code = WBC) 4.6 3.7-10.[address]01-30 14:17:00 Test Item Value Reference Range Interpretation Comments RBC (test code = RBC) 3.78 4.70-6.10 [place] 333252-01-30 14:17:00 Test Item Value Reference Range Interpretation Comments Hgb (test code = Hgb) 13.1 14.0-18.0 [place] 333252-01-30 14:17:00 Test Item Value Reference Range Interpretation Comments Hct (test code = Hct) 37.8 42.0-54.0 [facility] CenterDzmhugtOQYIHIMTHJ7488-70-65 14:17:00 Test Item Value Reference Range Interpretation Comments MCV (test code = MCV) 99.9 80.0-94.0 [place] 333252-01-30 14:17:00 Test Item Value Reference Range Interpretation Comments MCH (test code = MCH) 34.5 pg 27.0-31.0 [place] 333252-01-30 14:17:00 Test Item Value Reference Range Interpretation Comments MCHC (test code = MCHC) 34.5 32.0-36.0 [facility] CenterAtbboehQTAQFKYOHJ1134-75-98 14:17:00 Test Item Value Reference Range Interpretation Comments RDW (test code = RDW) 16.8 11.5-14.5 [place] 333252-01-30 14:17:00 Test Item Value Reference Range Interpretation Comments Platelet (test code = Platelet) 181 133-450 [facility] CenterEosusdxUPFACMDYEL4495-15-81 14:17:00 Test Item Value Reference Range Interpretation Comments MPV (test code = MPV) 9.7 7.4-10.4 [place] 333252-01-30 14:17:00 Test Item Value Reference Range Interpretation Comments PT (test code = PT) 13.8 s 12.0-14.7 [place] [address]-01-30 14:17:00 Test Item Value Reference Range Interpretation Comments INR (test code = INR) 1.07 1 0.85-1.17 [place] 333252-01-30 14:17:00 Test Item Value Reference Range Interpretation Comments PTT (test code = PTT) 34.6 s 22.9-35.8 [place] 333252-01-30 14:17:00 Test Item Value Reference Range Interpretation Comments Neutrophils # (test code = Neutrophils 2.7 1.5-8.1 #) [place] 333252-01-30 14:17:00 Test Item Value Reference Range Interpretation Comments Lymphocytes # (test code = Lymphocytes 1.2 1.0-5.5 #) [place] 333252-01-30 14:17:00 Test Item Value Reference Range Interpretation Comments Monocytes # (test code 0.5 See_Comment [Aut omated message] The = Monocytes #) system which generated this result tra nsmitted reference range : <=0.8. The reference r bret was not used to int erpret this result as normal/abnormal . [place] [address]-01-30 14:17:00 Test Item Value Reference Range Interpretation Comments Eosinophils # (test code 0.3 See_Comment [A utomated message] The = Eosinophils #) system whic h generated this result tra nsmitted reference range : <=0.5. The reference r bret was not used to int erpret this result as normal/abnormal . [place] 333252-01-30 14:17:00 Test Item Value Reference Range Interpretation Comments Segs (test code = Segs) 57.0 45.0-75.0 [place] [address]-01-30 14:17:00 Test Item Value Reference Range Interpretation Comments Bands (test code = 1.0 See_Comment [Automat ed message] The Bands) system which ge nerated this result transmit jw reference range : <=11.0. The reference r bret was not used to interpr et this result as mateo l/abnormal. [place] 333252-01-30 14:17:00 Test Item Value Reference Range Interpretation Comments Lymphocytes (test code = Lymphocytes) 26.0 20.0-40.0 [place] [address]-01-30 14:17:00 Test Item Value Reference Range Interpretation Comments Monocytes (test code = Monocytes) 10.0 2.0-12.0 [place] [address]-01-30 14:17:00 Test Item Value Reference Range Interpretation Comments Eosinophils (test code = 6.0 See_Comment [A utomated message] The Eosinophils) system which ge nerated this result tra nsmitted reference range : <=4.0. The reference r bret was not used to int erpret this result as normal/abnormal . [facility] CenterSnplpfnXVRHJRQWYL7123-73-29 14:17:00 Test Item Value Reference Range Interpretation Comments Atypical Lymphs (test code = Atypical 0.0 Lymphs) [place] 333252-01-30 14:17:00 Test Item Value Reference Range Interpretation Comments Anisocyte (test code = 1+ *ABN*(04/06/21 Anisocyte) 8:17 AM) [facility] CenterEfzlnjxQWOYIZVXEA8906-90-68 14:17:00 Test Item Value Reference Range Interpretation Comments Macrocyte (test code = 1+ *ABN*(04/06/21 Macrocyte) 8:17 AM) [place] 333252-01-30 14:17:00 Test Item Value Reference Range Interpretation Comments Large Plt (test code Moderate *ABN*(04/06/21 = Large Plt) 8:17 AM) [facility] CenterEwpveqgFWECAZDXVG3786-58-41 14:17:00 Test Item Value Reference Range Interpretation Comments Giant Plt (test code = Giant Plt) [facility]oknnvqOQPXPS3857-75-09 14:17:00 Test Item Value Reference Range Interpretation Comments Trig (test code = Trig) 138 [facility] PointeHnwegrrBLGYOY8580-01-60 14:17:00 Test Item Value Reference Range Interpretation Comments Chol (test code = Chol) 162 [place] 656482-01-30 14:17:00 Test Item Value Reference Range Interpretation Comments HDL (test code = HDL) 37 [place] 656482-01-30 14:17:00 Test Item Value Reference Range Interpretation Comments CHD Risk (test code = CHD Risk) 4.38 1 4.00-7.30 [place] 656482-01-30 14:17:00 Test Item Value Reference Range Interpretation Comments LDL (Calculated) (test code = LDL 97 (Calculated)) [place] 656482-01-30 14:17:00 Test Item Value Reference Range Interpretation Comments VLDL (test code = VLDL) 28 1 [facility] [id number] 14:17:00 Test Item Value Reference Range Interpretation Comments Ca Ion WB (test code = Ca Ion WB) 1.21 1.05-1.25 [facility] [id number] 14:17:00 Test Item Value Reference Range Interpretation Comments Ca Norm WB (test code = Ca Norm WB) 1.17 1.05-1.25 [facility] [id number] 14:17:00 Test Item Value Reference Range Interpretation Comments Hgb A1C (test code = Hgb A1C) 5.[address] [facility], TxCOVID-19 (ID NOW RAPID TESTING)2019-09-05 15:05:00 Test Item Value Reference Range Interpretation Comments SARS-CoV-2 Rapid ID NOW Not Detected Not Detected (test code = 31263-3) ANDREA (test code = ANDREA) ID NOW COVID-19 Assay is an isothermal nucleic acid amplification test intended for the qualitative detection of nucleic acid from SARS-CoV-2 viral RNA in nasopharyngeal (RESIDENCY DIRECTOR) specimens. It is used under Emergency Use [...] indicated. Lab Interpretation Normal (test code = 00311-2) [facility] 13:59:00HEART RATE: 60 bpmRR Interval: 1000 msAtrial Rate: 60 msP-R Interval: 108 msP Duration: 80 msP Horizo ntal [place]: 250 degP Front [place]: degQ Onset: 499 msQRSD Interval: 90 msQT Interval: 403 msQTcB: 403 msQTcF: 403 msQRS Horizontal [place]: 8 degQRS [place]: 27 degI-40 Horizontal [place]: 38 degI-40 Front [place]: 59 degT-40 Horizontal [place]: -22 degT-40 Front [place]: 21 degT Horizontal [place]: 87 degT Wave [place]: 96 degS-T Horizontal [place]: 144 degS-T Front [place]: 190 degECG Severity: - ABNORMAL ECG -ECG Impression: Atrial-paced rhythmECG Impression: Nonspecific repol abnormality, lateral kxwflBFL7545-70-74 11:03:00HEART RATE: 60 bpmRR Interval: 1000 msAtrial Rate: 60 msP-R Interval: 177 msP Duration: 133 msP Horizontal [place]: 255 degP Front [place]: degQ Onset: 502 msQRSD Interval: 87 msQT Interval: 394 msQTcB: 394 m sQTcF: 394 msQRS Horizontal [place]: -1 degQRS [place]: 20 degI-40 Horizontal [place]: 16 degI-40 Front [place]:37 degT-40 Horizontal [place]: -37 degT-40 Front [place]: 9 degT Horizontal [place]: 86 degT Wave [place]: 68 degS-T Horizontal [place]: 124 degS-T Front [place]: 256 degECG Severity: - ABNORMAL ECG -ECG Impression: Atrial-paced rhythm CTA [id number] 15:11:[address] [id number] IMAGING REPORTPatient Name: MAURICE PENADate of Service: 31-05-1823Ulo: 69 Sex: M Order #: [id number] Room: [facility] 4SDOB: 1950 X-Ray Number: [id number] Record Number: [id number] Hospital Number: [id number] Physician: Luis GUTIÉRREZing Physician: ANDERSON LAW head [...] with atherosclerotic calcificationsat its origin leading to ibqmsvryiwdsz89% diameter stenosis. The petrous,cervical and cavernous portions [...] authenticated by VENKATA GARCIA JR 2019-05-16 15:08:55CTA [id number] 15:11:[address] [id number] IMAGING REPORTPatient Name: MAURICE PENADate of Service: 75-37-1974Pnx: 69 Sex: M Order #: [id number] Room: [facility] 4SDOB: 1950 X-Ray Number: [id number] Record Number: [id number] Hospital Number: [id number] Physician: Luis GUTIÉRREZing Physician: ANDERSON LAW head [...] with atherosclerotic calcificationsat its origin leading to rzoyddlkzowxm50% diameter stenosis. The petrous,cervical and cavernous portions [...] VENKATA GARCIA JR 2019-05-16 15:08:55BMP, BASIC METABOLIC [id number] 05:47:00 Test Item Value Reference Range Interpretation [...] glucose = GLUCOSE) normal <100 MG/ DL- [employer] recommendation* * CALCIUM (test code 9.0 MG/DL 8.4-10.2 = CABLOOD) GFR (test code = 89 A GFR of >9 0 GFR) mL/min/1.73m2 mL/min/1.73m2 is considered norm al. [id number] 05:47:00 Test Item Value Reference Range Interpretation Comments MG (test code = MG) 2.0 mg/dL 1.6-2.3 LIPID [id number] 05:47:00 Test Item Value Reference Range Interpretation [...] = 84 MG/DL <100 CALC LDL) DIRECT [id number] 05:47:00 Test Item Value Reference Range Interpretation Comments DIR LDL (test code = LDL) 103 MG/DL 0-<100 H PROBRAIN NATRIURETIC [id number] 05:45:00 Test Item Value Reference Range Interpretation Comments NT-PROBNP (test code 175 pg/mL Exclusi on for heart = PROBNP) failure for pat ients of all ages is 300 pg/mL. Inclusion for h eart failure for pat ients age <50 is 450 pg/m L; for patients age 50 -75 is 900 pg/mL; for patients age >75 is 1800 pg/mL. [id number] 05:30:00 Test Item Value Reference Range Interpretation [...] (test code 2.7 K/UL 1.2-7.2 = NEUT) [id number] 13:52:00 Test Item Value Reference Range Interpretation [...] 1.000-1.025 UAMICRO (test code = UAMICRO) NO [id number] 12:26:00 Test Item Value Reference Range Interpretation Comments BLOOD TYPE (test O Rh Positive Comment for code = TYPE) Female s Rhogam may be indicated for patient dependi ng baby's Rh statu s. ANTIBODY SCREEN NEGATIVE NEGATIVE (test code = SCREEN) [id number] 11:56:00 Test Item Value Reference Range Interpretation Comments %CKMB (test code = %MB) 0.4 % CKMB (test code = CKMB) 0.3 NG/ML 0.22-2.4 CK (test code = CK) 69 U/L 55-170 CKINTERP (test code = NEGATIVE Negative CKINTERP) BMP, BASIC METABOLIC [id number] 11:52:00 Test Item Value Reference Range Interpretation [...] glucose = GLUCOSE) normal <100 MG/ DL- [employer] recommendation* * CALCIUM (test code 9.1 MG/DL 8.4-10.2 = CABLOOD) GFR (test code = 89 A GFR of >9 0 GFR) mL/min/1.73m2 mL/min/1.73m2 is considered norm al. [id number] 11:50:00 Test Item Value Reference Range Interpretation Comments PTT (test code = 24.9 SECONDS 25.0-36.5 L HEPARIN THE RAPEUTIC PTT) RANGE 57-92 SEC ONDS PROTHROMBIN TIME WITH [id number] 11:50:00 Test Item Value Reference Range Interpretation Comments PROTHROMBIN TIME 13.0 SECONDS 10.1-12.7 H INR Usual R bret = 2 (test code = PT) to 3 for pr evention of deep vein thrombosis (DVT ) INR (test code = INR) 1.1 [id number] 11:49:00 Test Item Value Reference Range Interpretation [...] code 3.9 K/UL 1.2-7.2 = NEUT) TROPONIN [id number] 11:15:00 Test Item Value Reference Range Interpretation Comments TROPER (test code = 0.01 NG/ML 0.0-0.08 INTE RPRETIVE TROPER) DATA A POC T ROPONIN OF </= 0.08 NG/ ML IS CONSIDERED NEGA TIVE CHEST 1 VIEW [id number] 11:13:00[place] [id number] IMAGING REPORTPatient Name: Tyron PENA of Service: [id number]: 69 Sex: M Order #: [id number] Room: [facility]: X-Ray Number: [id number] Record Number: [id number] Hospital Number: [id number] Physician: Ernestina MANCUSO Physician: Haresh MANCUSO.05/15/2019 11:08 AMHistory: Hypertension.Technique: Single AP chest projection.Findings: Single chest projection demonstrates normal heart size and clearlungs. The osseous structures appear intact. Pacemaking device lead wiresappear intact.Impression:No acute-appearing cardiopulmonary abnormalities.Electronically Signed By: Kevin Shipley M.D., 05/15/2019 11:11 AMLegally authenticated by QUINTEN Stokes 2019-05-15 11:11:07CT HEAD W/O CONT 2019-05-15 11:12:00[place] [id number] IMAGING REPORTPatient Name: Tyron PENA of Service: [id number]: 69 Sex: M Order #: [id number] Room: QERDOB: 1950 X- Ray Number: [id number] Record Number: [id number] Hospital Number: [id number] Physician: Ernestina MANCUSO Physician: KRISTINA MANCUSO HEAD:HISTORY: Declining state.TECHNIQUE: Unenhanced [...] acute appearing intracranial abnormalities.Electronically Signed By: Kevin Shipley M.D., 05/15/2019 11:10 AMLegally authenticated by QUINTEN Stokes 2019-05-15 11:10:40BMP, BASIC METABOLIC [id number] 07:54:00 Test Item Value Reference Range Interpretation [...] glucose = GLUCOSE) normal <100 MG/ DL- [employer] recommendation* * CALCIUM (test code 9.0 MG/DL 8.4-10.2 = CABLOOD) GFR (test code = 79 A GFR of >9 0 GFR) mL/min/1.73m2 mL/min/1.73m2 is considered norm al. [id number] 06:50:00 Test Item Value Reference Range Interpretation [...] (test code 2.1 K/UL 1.2-7.2 = NEUT) [id number] 05:11:00 Test Item Value Reference Range Interpretation [...] K/UL 1.2-7.2 = NEUT) PROTHROMBIN TIME WITH [id number] 03:45:00 Test Item Value Reference Range Interpretation Comments PROTHROMBIN TIME 13.3 SECONDS 10.1-12.7 H INR Usual R bret = 2 (test code = PT) to 3 for pr evention of deep vein thrombosis (DVT ) INR (test code = INR) 1.2 [id number] 03:45:00 Test Item Value Reference Range Interpretation Comments PTT (test code = 25.2 SECONDS 25.0-36.5 HEPARIN THE RAPEUTIC PTT) RANGE 57-92 SEC ONDS BMP, BASIC METABOLIC [id number] 03:45:00 Test Item Value Reference Range Interpretation [...] glucose = GLUCOSE) normal <100 MG/ DL- [employer] recommendation* * CALCIUM (test code 8.6 MG/DL 8.4-10.2 = CABLOOD) GFR (test code = 89 A GFR of >9 0 GFR) mL/min/1.73m2 mL/min/1.73m2 is considered norm al. [id number] 03:45:00 Test Item Value Reference Range Interpretation Comments MG (test code = MG) 1.9 mg/dL 1.6-2.3 [id number] 03:45:00 Test Item Value Reference Range Interpretation Comments PHOSPHOR (test code = PHOSPHOR) 3.3 MG/DL 2.5-4.5 [id number] 03:38:00 Test Item Value Reference Range Interpretation [...] code 2.2 K/UL 1.2-7.2 = NEUT) TROPONIN [id number] 20:10:00 Test Item Value Reference Range Interpretation Comments TROPER (test code = 0.00 NG/ML 0.0-0.08 INT ERPRETIVE TROPER) DATA A POC T ROPONIN OF </= 0.08 NG/ ML IS CONSIDERED NEGA TIVE HEPATITIS C ANTIBODY [id number] 19:13:00 Test Item Value Reference Range Interpretation [...] and confirmation re sults will follow. D-DIMER, [id number] 18:51:00 Test Item Value Reference Range Interpretation Comments D-DIMER (test 407 ng/mL (FEU) 0-500 VALUES OF Q UANTITATIVE code = DDIMER) D-DIMER LESS THAN 499 ng/mL HAVE BEEN REPORTED TO BE ASSOCIATED WITH A LOW PROBABILITY OF DEEP VEIN THROMBOSIS/PULM ONARYEMB OLISM. THIS GARCÍA T ALONE SHOULD NOT BE U SED TO RULE OUT DVT/PE . CHEST 1 VIEW [id number] 18:05:[address] [id number] IMAGING REPORTPatient Name: Tyron PENA of Service: [id number]: 69 Sex: M Order #: [id number] Room: [facility]: [facility] X-Ray Number: [id number] Record Number: [id number] Hospital Number: [id number] Physician: HUYNH, LOC TANOrdering Physician: LAUREL CODY 1 VIEW PORTABLE 05/13/2019 5:46 PMHistory: Chest Pain without Trauma/Injury, hypertension, CT, CAD, coronarystents.Comparisons: None Availa ble.FINDINGS:Heart size is normal.There is no focal lung consolidation.There is no definite pleural effusion or pneumothorax identified.Hyperinflation suggests COPD.There is apical pleural thickening bilaterally.Left-sided pacemaker is in good position.IMPRESSION:No acute cardiopulmonary process.Electronically Signed By: Cameron Amaya M.D., 05/13/2019 6:03 PMLegally authenticated by ORLANDO DOWNS 2019-05-13 18:03:07PROBRAIN NATRIURETIC [id number] 17:38:00 Test Item Value Reference Range Interpretation Comments NT-PROBNP (test code 151 pg/mL Exclusi on for heart = PROBNP) failure for pat ients of all ages is 300 pg/mL. Inclusion for h eart failure for pat ients age <50 is 450 pg/m L; for patients age 50 -75 is 900 pg/mL; for patients age >75 is 1800 pg/mL. [id number] 17:38:00 Test Item Value Reference Range Interpretation Comments %CKMB (test code = %MB) 0.7 % CKMB (test code = CKMB) 0.8 NG/ML 0.22-2.4 CK (test code = CK) 110 U/L 55-170 CKINTERP (test code = NEGATIVE Negative CKINTERP) BMP, BASIC METABOLIC [id number] 17:38:00 Test Item Value Reference Range Interpretation [...] glucose = GLUCOSE) normal <100 MG/ DL- [employer] recommendation* * CALCIUM (test code 9.5 MG/DL 8.4-10.2 = CABLOOD) GFR (test code = 79 A GFR of >9 0 GFR) mL/min/1.73m2 mL/min/1.73m2 is considered norm al. [id number] 17:19:00 Test Item Value Reference Range Interpretation [...] code 3.0 K/UL 1.2-7.2 = NEUT) TROPONIN [id number] 17:15:00 Test Item Value Reference Range Interpretation Comments TROPER (test code = 0.01 NG/ML 0.0-0.08 INTE RPRETIVE TROPER) DATA A POC T ROPONIN OF </= 0.08 NG/ ML IS CONSIDERED NEGA TIVE [id number] 05:42:00 Test Item Value Reference Range Interpretation Comments MAGNESIUM (BEAKER) (test code = 1.9 mg/dL 1.6-2.6 627) BASIC METABOLIC [id number] 05:42:00 Test Item Value Reference Range Interpretation [...] PATIEN TS. CBC W/PLT COUNT & AUTO [id number] 04:43:00 Test Item Value Reference Range Interpretation [...] 0-1 PERCENT (BEAKER) (test code = 2801) [id number] 19:48:00 Test Item Value Reference Range Interpretation Comments ACTIVATED CLOTTING TIME 158 sec TEST ED AT [facility] [address] ([facility]) (test code = NILESH MINA 441) [address] [id number] 09:20:00 Test Item Value Reference Range Interpretation Comments PARTIAL THROMBOPLASTIN TIME 76.2 seconds 22.5-36.0 H (BEAKER) (test code = 760) CREATINE KINASE (CK)2018-04-08 07:02:00 Test Item Value Reference Range Interpretation Comments CREATINE KINASE TOTAL (BEAKER) (test 74 U/L 29-200 code = 380) LACTIC ACID, VENOUS, WHOLE [id number] 06:56:00 Test Item Value Reference Range Interpretation Comments LACTATE BLOOD VENOUS (2) (BEAKER) 1.1 mmol/L 0.5-2.2 (test code = 2872) NERVE CONDUCTION STUDIES; 3-4 [id number] 06:53:00Select Extremity- >Right Leg Reason for exam:->painBaylor Arroyo Grande Community HospitalNeurophysiology DepartmentELECTROMYOGRAPHY / NERVE CONDUCTION STUDY [address] [facility] [address] [place], [place] [address] Name: Maurice Pena : Date of : 1950 Gender: Male Date of Exam: 04/07/2018 4:30 PMReferring Physician: Carole Cohenxamining Physician: Melody Benavidez Patient History: Patient presents [...] ConductionVelocityPeroneal.RAnkle 4.3 ms 4.9 mV Extensor digitorum brev is-Ankle 4.3 ms Fibula (head) 11.6 ms 4.2 [...] ConductionVelocitySural.RLower leg 2.9 ms 3.7 ms 12 ✸V Ankle-Lower leg 2.9 ms 140 mm 48 m/sNeedle EMG Examination: Insertional Spontaneous Activity Volitional MUAPsMuscle Insertional Fibs +Wave Fasc Duration Amplitude Poly PatternEffortTibialis anterior.R Normal None None None Normal Normal None Normal Max.Gastrocnemius (Medial head).R Normal None None None Normal Normal None Normal Max.Vastus medialis.R Normal None None None Normal Normal None Normal Max.Semimembranosus.R Normal None None None Normal Normal None Normal Max.Glu teus medius.R Normal None None None Normal Normal None Normal Max.Summary of findings: 1. Sensory studies of the right sural nerve showed normal findings.2. Motor studies of the right peroneal and tibial nerves showed normal findings. F- wave latencies were normal.3. Electromyography of the right lowerlimb was done using a disposable concentric needle. There was no abnormal spontaneous activity. All muscles tested showed normal MUAP morphologies and recruitment patterns.Conclusions: This is a normalelectrodiagnostic study. There is no electrophysiologic evidence of large-fiber peripheral neuropathy, nerve entrapment or denervation in the right lower limb. Melody Benavidez M.D. [id number] 03:03:00 Test Item Value Reference Range Interpretation Comments PARTIAL THROMBOPLASTIN TIME 82.1 seconds 22.5-36.0 H (BEAKER) (test code = 760) CT, CTA AAA, W/ SAMMY.EXT.[id number] 16:54:00Addendum BeginsREPORT STATUS:A Addendum: I agree with the previously described non vascular findings. Signed: Angel Rey MDRebenort Verified Date/Time: 04/07/2018 16:54:33 Reading Location: [place] [address] Angio Body Reading RoomAddendum EndsFINAL REPORT CT [...] dictated regarding the non-vascular findings by the Ammonia [employer]rigeration Technician Radiologist. Signed: Steve Musaeport Verified Da te/Time: 04/07/2018 15:32:19 Reading Location: [place] [address] Cardiology MRI DISE Rivera 2018-04-07 11:39:00 Test Item Value Reference Range Interpretation Comments TROPONIN I (ARIKAKER) (test code = 397) < ng/mL 0.00-0.03 [...] acute neurological disease, and persistent tachyarrhythmia.BASIC METABOLIC [id number] 16:14:00 Test Item Value Reference Range Interpretation [...] S NOT APPLICABLE FOR DIALYSIS PATIEN TS. PT/[id number] 16:05:00 Test Item Value Reference Range Interpretation [...] mechanical heart valves.CBC W/PLT COUNT & AUTO [id number] 15:56:00 Test Item Value Reference Range Interpretation [...] 0-1 PERCENT (BEAKER) (test code = 2801) [id number] 07:14:00 Test Item Value Reference Range Interpretation Comments AGAP (test code = AGAP) 11.9 10.0-20.0 [facility]VojnykgUTNLJKIBVCZI1630-91-05 07:14:00 Test Item Value Reference Range Interpretation Comments eGFR (test code = eGFR) 96 [facility] HospitalBqrkjfrUBAPFAOTCWKQ0326-80-72 07:14:00 Test Item Value Reference Range Interpretation Comments BUN (test code = BUN) 17 7-22 [facility] HospitalJhxyqhkOTOBSINZPAES3575-80-61 07:14:00 Test Item Value Reference Range Interpretation Comments Glucose Lvl (test code = Glucose Lvl) 79 70-99 [facility] HospitalBfayaedSVWFBNPMMRAX0138-64-11 07:14:00 Test Item Value Reference Range Interpretation Comments Calcium Lvl (test code = Calcium Lvl) 7.6 8.5-10.5 [facility] HospitalLvdxfcjQUWVNSAPUWNU8063-15-52 07:14:00 Test Item Value Reference Range Interpretation Comments Chloride Lvl (test code = Chloride Lvl) 108 95-109 [facility] HospitalPahseukIQJFQRRXIUWX3574-93-30 07:14:00 Test Item Value Reference Range Interpretation Comments Potassium Lvl (test code = Potassium 3.9 3.5-5.1 Lvl) [facility] HospitalCsqcyzwWQDTNFNYWFLG5088-80-13 07:14:00 Test Item Value Reference Range Interpretation Comments Sodium Lvl (test code = Sodium Lvl) 140 135-145 [facility] HospitalVmcdgcfLAXSYUJNFPCX0439-67-18 07:14:00 Test Item Value Reference Range Interpretation Comments Creatinine Lvl (test code = Creatinine 0.72 0.50-1.40 Lvl) [facility] HospitalXjlezjmQSFPFRVHFGXB6695-58-57 07:14:00 Test Item Value Reference Range Interpretation Comments CO2 (test code = CO2) 24 24-32 [facility] CenterXkwtzfoUHCJOVRHIA7555-47-58 07:14:00 Test Item Value Reference Range Interpretation Comments Platelet (test code = Platelet) 136 133-450 [facility] CenterJybfwmkPENDIIJNVR3453-90-48 07:14:00 Test Item Value Reference Range Interpretation Comments MPV (test code = MPV) 8.5 7.4-10.4 [facility] CenterIvnhrgaEELOHGKBTZ7974-14-71 07:14:00 Test Item Value Reference Range Interpretation Comments RDW (test code = RDW) 17.9 11.5-14.5 [facility] CenterMscgmetXYKRTFKQGF4126-19-29 07:14:00 Test Item Value Reference Range Interpretation Comments WBC (test code = WBC) 5.4 3.7-10.4 [facility] CenterXyjojsaWAOLXQCVPJ4942-40-01 07:14:00 Test Item Value Reference Range Interpretation Comments Hgb (test code = Hgb) 9.4 14.0-18.0 [facility] CenterYmeutgnYQYIFOYRXC4834-75-71 07:14:00 Test Item Value Reference Range Interpretation Comments MCHC (test code = MCHC) 32.9 32.0-36.0 [facility] CenterIviclfhSAOLRMDLNK5951-29-70 07:14:00 Test Item Value Reference Range Interpretation Comments Hct (test code = Hct) 28.5 42.0-54.0 [facility] CenterQwdvxpwATVBGQKMKM6919-60-70 07:14:00 Test Item Value Reference Range Interpretation Comments MCV (test code = MCV) 84.1 80.0-94.0 [facility] CenterCvvyqgkNDTNDXVNDU9367-34-53 07:14:00 Test Item Value Reference Range Interpretation Comments RBC (test code = RBC) 3.39 4.70-6.10 [facility] CenterSxqfgbcMXYUZJGHNG1821-16-75 07:14:00 Test Item Value Reference Range Interpretation Comments MCH (test code = MCH) 27.6 pg 27.0-31.0 [facility] HospitalEpzryzbOETZPVEGKNGI4047-67-16 07:14:00 Test Item Value Reference Range Interpretation Comments AGAP (test code = AGAP) 11.9 10.0-20.0 [facility] HospitalBldorbyKIJWMBHCZRYM5361-72-76 07:14:00 Test Item Value Reference Range Interpretation Comments eGFR (test code = eGFR) 96 [facility] HospitalYhynmbrETJITDGETKQJ6026-52-19 07:14:00 Test Item Value Reference Range Interpretation Comments BUN (test code = BUN) 17 7-22 [facility] HospitalNoezbonZBDPJJSVHHRF9790-73-07 07:14:00 Test Item Value Reference Range Interpretation Comments Glucose Lvl (test code = Glucose Lvl) 79 70-99 [facility] HospitalRpsvppwWMQPATKCYAAZ8355-04-96 07:14:00 Test Item Value Reference Range Interpretation Comments Calcium Lvl (test code = Calcium Lvl) 7.6 8.5-10.5 [facility] HospitalIzpmozmTLSVALDUMEFP7102-15-48 07:14:00 Test Item Value Reference Range Interpretation Comments Chloride Lvl (test code = Chloride Lvl) 108 95-109 [facility] HospitalFqbignnWXWXOULFRJQR7230-44-63 07:14:00 Test Item Value Reference Range Interpretation Comments Potassium Lvl (test code = Potassium 3.9 3.5-5.1 Lvl) [facility] HospitalNathcwpMBYJNJMJTZEV5698-56-29 07:14:00 Test Item Value Reference Range Interpretation Comments Sodium Lvl (test code = Sodium Lvl) 140 135-145 [facility] HospitalUwrtzlkIQRLNJXZHQIW0204-97-14 07:14:00 Test Item Value Reference Range Interpretation Comments Creatinine Lvl (test code = Creatinine 0.72 0.50-1.40 Lvl) [facility] HospitalBcqygfeNJSEZVOFWPUJ9942-91-30 07:14:00 Test Item Value Reference Range Interpretation Comments CO2 (test code = CO2) 24 24-32 [facility] CenterJmgsgrgMJYMKILCMW1200-61-19 07:14:00 Test Item Value Reference Range Interpretation Comments Platelet (test code = Platelet) 136 133-450 [facility] CenterQjhvumkKYOKKDGIJN6728-56-70 07:14:00 Test Item Value Reference Range Interpretation Comments MPV (test code = MPV) 8.5 7.4-10.4 [facility] CenterQeiradrJDRGQBOLVD0851-11-11 07:14:00 Test Item Value Reference Range Interpretation Comments RDW (test code = RDW) 17.9 11.5-14.5 [facility] CenterCqnwfdxJQVUORLPLC0363-90-74 07:14:00 Test Item Value Reference Range Interpretation Comments WBC (test code = WBC) 5.4 3.7-10.4 [facility] CenterGgovstaVHBANAUCJW0624-54-82 07:14:00 Test Item Value Reference Range Interpretation Comments Hgb (test code = Hgb) 9.4 14.0-18.0 [facility] CenterYccvybtSQIHXKCHHP6890-11-88 07:14:00 Test Item Value Reference Range Interpretation Comments MCHC (test code = MCHC) 32.9 32.0-36.0 [facility] CenterWdivjqbTLGREDMHSB2241-28-23 07:14:00 Test Item Value Reference Range Interpretation Comments Hct (test code = Hct) 28.5 42.0-54.0 [facility] CenterOxxxgfhAYNIJQGOPI9934-05-85 07:14:00 Test Item Value Reference Range Interpretation Comments MCV (test code = MCV) 84.1 80.0-94.0 [facility] CenterQnlxttxEQCJPCIHEM8081-91-30 07:14:00 Test Item Value Reference Range Interpretation Comments RBC (test code = RBC) 3.39 4.70-6.10 [facility] CenterJnmvwkhYHLMKTVSMN9548-56-73 07:14:00 Test Item Value Reference Range Interpretation Comments MCH (test code = MCH) 27.6 pg 27.0-31.0 [facility] HospitalAtsadgiTXOIJGXWGJBP5224-57-33 07:14:00 Test Item Value Reference Range Interpretation Comments AGAP (test code = AGAP) 11.9 10.0-20.0 [facility] HospitalHwodoriCGJZBHSMVVPC5317-85-00 07:14:00 Test Item Value Reference Range Interpretation Comments eGFR (test code = eGFR) 96 [facility] HospitalMqpjvwgELDSEZNZLUBZ2297-23-91 07:14:00 Test Item Value Reference Range Interpretation Comments BUN (test code = BUN) 17 7-22 [facility] HospitalQzbndkwYDYYKSRCSCBM3692-21-66 07:14:00 Test Item Value Reference Range Interpretation Comments Glucose Lvl (test code = Glucose Lvl) 79 70-99 [facility] HospitalRbfzndwDMAWEOKMSUOB4236-96-61 07:14:00 Test Item Value Reference Range Interpretation Comments Calcium Lvl (test code = Calcium Lvl) 7.6 8.5-10.5 [facility] HospitalOmflhimTAMPLLHALIQL7118-46-81 07:14:00 Test Item Value Reference Range Interpretation Comments Chloride Lvl (test code = Chloride Lvl) 108 95-109 [facility] HospitalFrhzpzcTNSLCJSCVQAX8739-44-21 07:14:00 Test Item Value Reference Range Interpretation Comments Potassium Lvl (test code = Potassium 3.9 3.5-5.1 Lvl) [facility] HospitalPpigegfXAYKHSPWWXBR3773-93-80 07:14:00 Test Item Value Reference Range Interpretation Comments Sodium Lvl (test code = Sodium Lvl) 140 135-145 [facility] HospitalBordtpjRWJWANVXVYCT2012-31-61 07:14:00 Test Item Value Reference Range Interpretation Comments Creatinine Lvl (test code = Creatinine 0.72 0.50-1.40 Lvl) [facility] HospitalGzruhmgZBCEHZTDNLSJ2231-75-51 07:14:00 Test Item Value Reference Range Interpretation Comments CO2 (test code = CO2) 24 24-32 [facility] CenterHmjsdkmJRQUUSLTBC7688-37-53 07:14:00 Test Item Value Reference Range Interpretation Comments Platelet (test code = Platelet) 136 133-450 [facility] CenterHpicugnOJZMGIIVDZ1126-07-23 07:14:00 Test Item Value Reference Range Interpretation Comments MPV (test code = MPV) 8.5 7.4-10.4 [facility] CenterWorxkwpHWDPEGZXGN4111-93-81 07:14:00 Test Item Value Reference Range Interpretation Comments RDW (test code = RDW) 17.9 11.5-14.5 [facility] CenterDjrbdapPZUWGGCOZW0507-42-10 07:14:00 Test Item Value Reference Range Interpretation Comments WBC (test code = WBC) 5.4 3.7-10.4 [facility] CenterJfgyovwYPGUEDQAVA4857-58-37 07:14:00 Test Item Value Reference Range Interpretation Comments Hgb (test code = Hgb) 9.4 14.0-18.0 [facility] CenterTjdpqmdKBEGVSPVAR2885-42-82 07:14:00 Test Item Value Reference Range Interpretation Comments MCHC (test code = MCHC) 32.9 32.0-36.0 [facility] CenterFlymyoyVJELSNMBED9718-51-69 07:14:00 Test Item Value Reference Range Interpretation Comments Hct (test code = Hct) 28.5 42.0-54.0 [facility] CenterZxzentsWMSVXZFCWY4494-23-53 07:14:00 Test Item Value Reference Range Interpretation Comments MCV (test code = MCV) 84.1 80.0-94.0 [facility] CenterXayjrdcBWYAFRKCWU0103-68-72 07:14:00 Test Item Value Reference Range Interpretation Comments RBC (test code = RBC) 3.39 4.70-6.10 [facility] CenterCwcyejfZCIVLDNVEY1564-93-98 07:14:00 Test Item Value Reference Range Interpretation Comments MCH (test code = MCH) 27.6 pg 27.0-31.0 [facility] HospitalVitudzeALDYJPLNVGIV4771-59-79 07:14:00 Test Item Value Reference Range Interpretation Comments AGAP (test code = AGAP) 11.9 10.0-20.0 [facility] HospitalMfiseyeWAFDOGJEUTSK6841-78-22 07:14:00 Test Item Value Reference Range Interpretation Comments eGFR (test code = eGFR) 96 [facility] HospitalXvsdrojXNTJTUCJKYQN8581-03-62 07:14:00 Test Item Value Reference Range Interpretation Comments BUN (test code = BUN) 17 7-22 [facility] HospitalWaorijmVWIQTBLHHXYA4897-08-43 07:14:00 Test Item Value Reference Range Interpretation Comments Glucose Lvl (test code = Glucose Lvl) 79 70-99 [facility] HospitalHkjjhetSDPEYLWFWZZA0184-60-16 07:14:00 Test Item Value Reference Range Interpretation Comments Calcium Lvl (test code = Calcium Lvl) 7.6 8.5-10.5 [facility] HospitalZtixkwvPZNHJSXRASLD0973-25-59 07:14:00 Test Item Value Reference Range Interpretation Comments Chloride Lvl (test code = Chloride Lvl) 108 95-109 [facility] HospitalWwcltzwUCEFICGLKCOH9580-13-49 07:14:00 Test Item Value Reference Range Interpretation Comments Potassium Lvl (test code = Potassium 3.9 3.5-5.1 Lvl) [facility] HospitalWyjllfjDQAELRFZDRBE5776-83-50 07:14:00 Test Item Value Reference Range Interpretation Comments Sodium Lvl (test code = Sodium Lvl) 140 135-145 [facility] HospitalOmjyymuIJZJWUALGXBD0510-72-05 07:14:00 Test Item Value Reference Range Interpretation Comments Creatinine Lvl (test code = Creatinine 0.72 0.50-1.40 Lvl) [facility] HospitalDhbzehhSPJAQIBYZAFB5206-84-85 07:14:00 Test Item Value Reference Range Interpretation Comments CO2 (test code = CO2) 24 24-32 [facility] CenterSuifseiFOGHSPTHIO0842-70-04 07:14:00 Test Item Value Reference Range Interpretation Comments Platelet (test code = Platelet) 136 133-450 [facility] CenterBxdjffxDHJCOYLHFG7662-53-51 07:14:00 Test Item Value Reference Range Interpretation Comments MPV (test code = MPV) 8.5 7.4-10.4 [facility] CenterEergeiaEOKRBWNXIB9258-43-31 07:14:00 Test Item Value Reference Range Interpretation Comments RDW (test code = RDW) 17.9 11.5-14.5 [facility] CenterYieghzdKPZQBFSIFN9712-77-45 07:14:00 Test Item Value Reference Range Interpretation Comments WBC (test code = WBC) 5.4 3.7-10.4 [facility] CenterPxidrxpXZEWQUKHCJ4997-01-41 07:14:00 Test Item Value Reference Range Interpretation Comments Hgb (test code = Hgb) 9.4 14.0-18.0 [facility] CenterDbbdldyUGDGMRIQYD7174-93-72 07:14:00 Test Item Value Reference Range Interpretation Comments MCHC (test code = MCHC) 32.9 32.0-36.0 [facility] CenterYpygcumAWHFTDKRWJ9453-87-22 07:14:00 Test Item Value Reference Range Interpretation Comments Hct (test code = Hct) 28.5 42.0-54.0 [facility] CenterUzrrjzyEMAPSBTGSP5339-79-08 07:14:00 Test Item Value Reference Range Interpretation Comments MCV (test code = MCV) 84.1 80.0-94.0 [facility] CenterVdbtpdkAHESIWSYDG4354-64-40 07:14:00 Test Item Value Reference Range Interpretation Comments RBC (test code = RBC) 3.39 4.70-6.10 [facility] CenterYzolmpsUPFHXCRDLM3867-05-45 07:14:00 Test Item Value Reference Range Interpretation Comments MCH (test code = MCH) 27.6 pg 27.0-31.0 [facility]AojpnpzJIPQJPDKLTSA1864-46-51 07:14:00 Test Item Value Reference Range Interpretation Comments AGAP (test code = AGAP) 11.9 10.0-20.0 [facility] HospitalAntawgqVADVPFGGQKWH4127-27-08 07:14:00 Test Item Value Reference Range Interpretation Comments eGFR (test code = eGFR) 96 [facility] HospitalNlhceplKOVUSQHWCPWJ7942-72-47 07:14:00 Test Item Value Reference Range Interpretation Comments BUN (test code = BUN) 17 7-22 [facility] HospitalAbymxznDSKPLZZOOWEO4435-68-16 07:14:00 Test Item Value Reference Range Interpretation Comments Glucose Lvl (test code = Glucose Lvl) 79 70-99 [facility] HospitalLjulctpJDYVYRCPFLEP7189-73-10 07:14:00 Test Item Value Reference Range Interpretation Comments Calcium Lvl (test code = Calcium Lvl) 7.6 8.5-10.5 [facility] HospitalEzovogeTBILVHGBUXXF0836-29-61 07:14:00 Test Item Value Reference Range Interpretation Comments Chloride Lvl (test code = Chloride Lvl) 108 95-109 [facility] HospitalWykwjgtHSDFKEWKQWCL8465-30-13 07:14:00 Test Item Value Reference Range Interpretation Comments Potassium Lvl (test code = Potassium 3.9 3.5-5.1 Lvl) [facility] HospitalPumoceoDXIDOLIBWMKM0657-98-39 07:14:00 Test Item Value Reference Range Interpretation Comments Sodium Lvl (test code = Sodium Lvl) 140 135-145 [facility] HospitalCjqrflcLRODODVPWBDJ8768-21-90 07:14:00 Test Item Value Reference Range Interpretation Comments Creatinine Lvl (test code = Creatinine 0.72 0.50-1.40 Lvl) [facility] HospitalVghmhkiYUQREMJKXAYD8167-52-93 07:14:00 Test Item Value Reference Range Interpretation Comments CO2 (test code = CO2) 24 24-32 [facility] CenterUgnjziaNGLSHOHRJD1897-13-40 07:14:00 Test Item Value Reference Range Interpretation Comments Platelet (test code = Platelet) 136 133-450 [facility] CenterYuhfeefAHOUBJXKNR9274-04-80 07:14:00 Test Item Value Reference Range Interpretation Comments MPV (test code = MPV) 8.5 7.4-10.4 [facility] CenterUfjcdsoFFMSGQBFLW0217-70-80 07:14:00 Test Item Value Reference Range Interpretation Comments RDW (test code = RDW) 17.9 11.5-14.5 [facility] CenterLzdycbkNFJKSWSKMF2363-44-19 07:14:00 Test Item Value Reference Range Interpretation Comments WBC (test code = WBC) 5.4 3.7-10.4 [facility] CenterSxqheeiUGUHVJITJI5197-45-44 07:14:00 Test Item Value Reference Range Interpretation Comments Hgb (test code = Hgb) 9.4 14.0-18.0 [facility] CenterIpybgmeASYWWNVIDP3816-73-63 07:14:00 Test Item Value Reference Range Interpretation Comments MCHC (test code = MCHC) 32.9 32.0-36.0 [facility] CenterDzbafxgNOBZLFITAC6119-61-20 07:14:00 Test Item Value Reference Range Interpretation Comments Hct (test code = Hct) 28.5 42.0-54.0 [facility] CenterXrrbmteSELKMDEWAN4006-43-53 07:14:00 Test Item Value Reference Range Interpretation Comments MCV (test code = MCV) 84.1 80.0-94.0 [facility] CenterMqvnacvJETFTMGPER5027-14-96 07:14:00 Test Item Value Reference Range Interpretation Comments RBC (test code = RBC) 3.39 4.70-6.10 [facility] CenterHrwhctxJHKXQWDEZJ3430-35-11 07:14:00 Test Item Value Reference Range Interpretation Comments MCH (test code = MCH) 27.6 pg 27.0-31.0 [facility] HospitalJhdqnwyCSMQPAICFHJF9110-01-35 07:14:00 Test Item Value Reference Range Interpretation Comments AGAP (test code = AGAP) 11.9 10.0-20.0 [facility] HospitalNafwguzSWMIIBGVIDYS9258-84-18 07:14:00 Test Item Value Reference Range Interpretation Comments eGFR (test code = eGFR) 96 [facility] HospitalWoyqzbyQLLFFZQOLEWB1402-19-03 07:14:00 Test Item Value Reference Range Interpretation Comments BUN (test code = BUN) 17 7-22 [facility] HospitalZyttsxyKTJGGAUABETF1411-93-68 07:14:00 Test Item Value Reference Range Interpretation Comments Glucose Lvl (test code = Glucose Lvl) 79 70-99 [facility] HospitalPpokhvbGUXKIRWZHFEC4151-81-28 07:14:00 Test Item Value Reference Range Interpretation Comments Calcium Lvl (test code = Calcium Lvl) 7.6 8.5-10.5 [facility] HospitalXxnvvbuKEVUHBZXZSMH0125-09-57 07:14:00 Test Item Value Reference Range Interpretation Comments Chloride Lvl (test code = Chloride Lvl) 108 95-109 [facility] HospitalQfggjgtOWKBPGGXMMYO4267-31-50 07:14:00 Test Item Value Reference Range Interpretation Comments Potassium Lvl (test code = Potassium 3.9 3.5-5.1 Lvl) [facility] HospitalZmikligYCWOPNGUXEST8838-44-77 07:14:00 Test Item Value Reference Range Interpretation Comments Sodium Lvl (test code = Sodium Lvl) 140 135-145 [facility] HospitalPbyvgcfCFVCHZXLVSYX5785-01-25 07:14:00 Test Item Value Reference Range Interpretation Comments Creatinine Lvl (test code = Creatinine 0.72 0.50-1.40 Lvl) [facility] HospitalKgcnoiyNYBLRISIEPWJ0171-16-46 07:14:00 Test Item Value Reference Range Interpretation Comments CO2 (test code = CO2) 24 24-32 [facility] CenterFtkmjqjYIONDYBUTX6837-91-03 07:14:00 Test Item Value Reference Range Interpretation Comments Platelet (test code = Platelet) 136 133-450 [facility] CenterBnlxrrbQWCQZBYEFR4940-78-69 07:14:00 Test Item Value Reference Range Interpretation Comments MPV (test code = MPV) 8.5 7.4-10.4 [facility] CenterGzlkyxdQDQZOWNRIJ5862-58-88 07:14:00 Test Item Value Reference Range Interpretation Comments RDW (test code = RDW) 17.9 11.5-14.5 [facility] CenterXdgghcnPAELSMYQNI8842-72-78 07:14:00 Test Item Value Reference Range Interpretation Comments WBC (test code = WBC) 5.4 3.7-10.4 [facility] CenterZeaouvdUGEGVGPDCM3339-95-56 07:14:00 Test Item Value Reference Range Interpretation Comments Hgb (test code = Hgb) 9.4 14.0-18.0 [facility] CenterIsnkhozRGDJPJCMAJ4776-98-92 07:14:00 Test Item Value Reference Range Interpretation Comments MCHC (test code = MCHC) 32.9 32.0-36.0 [facility] CenterPegvzukGXYKFDPVBC0192-26-88 07:14:00 Test Item Value Reference Range Interpretation Comments Hct (test code = Hct) 28.5 42.0-54.0 [facility] CenterAaacpvkLYJXLPELUX2421-76-55 07:14:00 Test Item Value Reference Range Interpretation Comments MCV (test code = MCV) 84.1 80.0-94.0 [facility] CenterVslvwxcJVUHKPBXED1188-50-44 07:14:00 Test Item Value Reference Range Interpretation Comments RBC (test code = RBC) 3.39 4.70-6.10 [facility] CenterUpvljbfUCYNJIYTMT8050-30-60 07:14:00 Test Item Value Reference Range Interpretation Comments MCH (test code = MCH) 27.6 pg 27.0-31.0 [facility] IQCORTV0589-19-61 23:19:00 Test Item Value Reference Range Interpretation Comments Troponin-I (test code no gt See_Comment [Auto mated message] The = Troponin-I) system which g enerated this result transmit jw reference range : <=0.40. The reference r bret was not used to interpr et this result as mateo l/abnormal. [facility] TPJEYSX2656-96-56 23:19:00 Test Item Value Reference Range Interpretation Comments Troponin-I (test code no gt See_Comment [Auto mated message] The = Troponin-I) system which g enerated this result transmit jw reference range : <=0.40. The reference r bret was not used to interpr et this result as mateo l/abnormal. [facility], [facility] MRSPYFH4313-29-91 23:19:00 Test Item Value Reference Range Interpretation Comments Troponin-I (test code no gt See_Comment [Auto mated message] The = Troponin-I) system which g enerated this result transmit jw reference range : <=0.40. The reference r bret was not used to interpr et this result as mateo l/abnormal. [facility], TxEPIOMED THERAPEUTICSHEBXVCN5028-51-35 23:19:00 Test Item Value Reference Range Interpretation Comments Troponin-I (test code no gt See_Comment [Auto mated message] The = Troponin-I) system which g enerated this result transmit jw reference range : <=0.40. The reference r bret was not used to interpr et this result as mateo l/abnormal. [facility], TxEPIOMED THERAPEUTICSDIAHRDC5660-42-88 23:19:00 Test Item Value Reference Range Interpretation Comments Troponin-I (test code no gt See_Comment [Auto mated message] The = Troponin-I) system which g enerated this result transmit jw reference range : <=0.40. The reference r bret was not used to interpr et this result as mateo l/abnormal. [facility], TxEPIOMED THERAPEUTICSFCOUVTR7211-33-17 23:19:00 Test Item Value Reference Range Interpretation Comments Troponin-I (test code no gt See_Comment [Auto mated message] The = Troponin-I) system which g enerated this result transmit jw reference range : <=0.40. The reference r bret was not used to interpr et this result as mateo l/abnormal. [facility], TxEPIOMED THERAPEUTICSROIWDVM4548-24-92 17:36:00 Test Item Value Reference Range Interpretation Comments Troponin-I (test code no gt See_Comment [Auto mated message] The = Troponin-I) system which g enerated this result transmit jw reference range : <=0.40. The reference r bret was not used to interpr et this result as mateo l/abnormal. [facility], TxEPIOMED THERAPEUTICSDMINJIU4592-98-89 17:36:00 Test Item Value Reference Range Interpretation Comments Troponin-I (test code no gt See_Comment [Auto mated message] The = Troponin-I) system which g enerated this result transmit jw reference range : <=0.40. The reference r bret was not used to interpr et this result as mateo l/abnormal. [facility] 17:36:00 Test Item Value Reference Range Interpretation Comments Troponin-I (test code no gt See_Comment [Auto mated message] The = Troponin-I) system which g enerated this result transmit jw reference range : <=0.40. The reference r bret was not used to interpr et this result as mateo l/abnormal. [facility] NJLUIOB1542-96-57 17:36:00 Test Item Value Reference Range Interpretation Comments Troponin-I (test code no gt See_Comment [Auto mated message] The = Troponin-I) system which g enerated this result transmit jw reference range : <=0.40. The reference r bret was not used to interpr et this result as mateo l/abnormal. [facility] PWLWPMS1087-84-40 17:36:00 Test Item Value Reference Range Interpretation Comments Troponin-I (test code no gt See_Comment [Auto mated message] The = Troponin-I) system which g enerated this result transmit jw reference range : <=0.40. The reference r bret was not used to interpr et this result as mateo l/abnormal. [facility] GWAXCIK7596-03-27 17:36:00 Test Item Value Reference Range Interpretation Comments Troponin-I (test code no gt See_Comment [Auto mated message] The = Troponin-I) system which g enerated this result transmit jw reference range : <=0.40. The reference r bret was not used to interpr et this result as mateo l/abnormal. [facility] CenterGhhndemTWDBPGOFWY4379-23-64 10:52:00 Test Item Value Reference Range Interpretation Comments Neutrophils # (test code = Neutrophils 4.1 1.5-8.1 #) [facility] CenterWwlwyeeOWOTPBTSIX7992-38-35 10:52:00 Test Item Value Reference Range Interpretation Comments Basophils (test code = 1.3 See_Comment [Aut omated message] The Basophils) system which ge nerated this result tra nsmitted reference range : <=1.0. The reference r bret was not used to int erpret this result as normal/abnormal . [facility] CenterZqgkrzgAMUKQGFEDV7270-93-57 10:52:00 Test Item Value Reference Range Interpretation Comments Monocytes # (test code 0.7 See_Comment [Aut omated message] The = Monocytes #) system which generated this result tra nsmitted reference range : <=0.8. The reference r bret was not used to int erpret this result as normal/abnormal . [facility] CenterRoykmgsDEJYHJGGEN5162-86-40 10:52:00 Test Item Value Reference Range Interpretation Comments Lymphocytes # (test code = Lymphocytes 1.3 1.0-5.5 #) [facility] CenterJassueeCDVSEDCMLD6719-52-83 10:52:00 Test Item Value Reference Range Interpretation Comments Eosinophils # (test code 0.1 See_Comment [A utomated message] The = Eosinophils #) system whic h generated this result tra nsmitted reference range : <=0.5. The reference r bret was not used to int erpret this result as normal/abnormal . [facility] CenterFtowxhmHXUKZVGHYU3221-20-72 10:52:00 Test Item Value Reference Range Interpretation Comments Basophils # (test code 0.1 See_Comment [Aut omated message] The = Basophils #) system which generated this result tra nsmitted reference range : <=0.2. The reference r bret was not used to int erpret this result as normal/abnormal . [facility] CenterKnuaejeMHUAFWVOSG6530-12-70 10:52:00 Test Item Value Reference Range Interpretation Comments Lymphocytes (test code = Lymphocytes) 20.5 20.0-40.0 [facility] CenterXkqhutkMFSYGNYQKX6625-82-83 10:52:00 Test Item Value Reference Range Interpretation Comments Eosinophils (test code = 1.9 See_Comment [A utomated message] The Eosinophils) system which ge nerated this result tra nsmitted reference range : <=4.0. The reference r bret was not used to int erpret this result as normal/abnormal . [facility] CenterNpftgydZODSIJMECT2366-51-29 10:52:00 Test Item Value Reference Range Interpretation Comments Monocytes (test code = Monocytes) 11.0 2.0-12.0 [facility] CenterXleejbyUFVFLGBNTM4798-84-37 10:52:00 Test Item Value Reference Range Interpretation Comments Segs (test code = Segs) 65.3 45.0-75.0 [facility] CenterRguedmkVQJHLPTCFW0176-25-13 10:52:00 Test Item Value Reference Range Interpretation Comments WBC (test code = WBC) 6.2 3.7-10.4 [facility] CenterSbnrjmeUKYNFCSAIH8538-65-97 10:52:00 Test Item Value Reference Range Interpretation Comments MCH (test code = MCH) 27.3 pg 27.0-31.0 [facility] CenterHfxxnzvZJLUSORIIN3178-14-13 10:52:00 Test Item Value Reference Range Interpretation Comments MCV (test code = MCV) 83.7 80.0-94.0 [facility] CenterJmetlxxPWIXXSRNND5870-00-98 10:52:00 Test Item Value Reference Range Interpretation Comments RBC (test code = RBC) 3.80 4.70-6.10 [facility] CenterGvvatwmSDUNKYPIGX6163-58-74 10:52:00 Test Item Value Reference Range Interpretation Comments Hct (test code = Hct) 31.8 42.0-54.0 [facility] CenterNssqqmpPTEGBVOSKR2946-22-07 10:52:00 Test Item Value Reference Range Interpretation Comments Hgb (test code = Hgb) 10.4 14.0-18.0 [facility] CenterTwrvqyuYQIVUDVJMX4878-32-50 10:52:00 Test Item Value Reference Range Interpretation Comments RDW (test code = RDW) 17.7 11.5-14.5 [facility] CenterNopujmqRIAINLDBNB1663-03-22 10:52:00 Test Item Value Reference Range Interpretation Comments MCHC (test code = MCHC) 32.6 32.0-36.0 [facility] CenterDyrsevvVISFCOMXXE1765-75-45 10:52:00 Test Item Value Reference Range Interpretation Comments MPV (test code = MPV) 8.7 7.4-10.4 [facility] CenterAerhkhwSBTOLYSUNS6525-81-70 10:52:00 Test Item Value Reference Range Interpretation Comments Platelet (test code = Platelet) 167 133-450 [facility] CenterWkyoyinQGCVNHLPKG1802-89-20 10:52:00 Test Item Value Reference Range Interpretation Comments Neutrophils # (test code = Neutrophils 4.1 1.5-8.1 #) [facility] CenterSdhkouoLCGFRBEKWG8219-31-74 10:52:00 Test Item Value Reference Range Interpretation Comments Basophils (test code = 1.3 See_Comment [Aut omated message] The Basophils) system which ge nerated this result tra nsmitted reference range : <=1.0. The reference r bret was not used to int erpret this result as normal/abnormal . [facility] CenterQhddrlnKPJRBJRECH2895-51-37 10:52:00 Test Item Value Reference Range Interpretation Comments Monocytes # (test code 0.7 See_Comment [Aut omated message] The = Monocytes #) system which generated this result tra nsmitted reference range : <=0.8. The reference r bret was not used to int erpret this result as normal/abnormal . [facility] CenterLwspnfyDQWYIVSQCE0391-06-50 10:52:00 Test Item Value Reference Range Interpretation Comments Lymphocytes # (test code = Lymphocytes 1.3 1.0-5.5 #) [facility] CenterCgtijkoIMKLJLYUWO4338-97-48 10:52:00 Test Item Value Reference Range Interpretation Comments Eosinophils # (test code 0.1 See_Comment [A utomated message] The = Eosinophils #) system whic h generated this result tra nsmitted reference range : <=0.5. The reference r bret was not used to int erpret this result as normal/abnormal . [facility] CenterKidztqnBXPPHSNGAC5658-54-62 10:52:00 Test Item Value Reference Range Interpretation Comments Basophils # (test code 0.1 See_Comment [Aut omated message] The = Basophils #) system which generated this result tra nsmitted reference range : <=0.2. The reference r bret was not used to int erpret this result as normal/abnormal . [facility] CenterFnvixwlWXDQVNRWLT0938-01-95 10:52:00 Test Item Value Reference Range Interpretation Comments Lymphocytes (test code = Lymphocytes) 20.5 20.0-40.0 [facility] CenterNujafflZJPKUCMBPV3798-61-55 10:52:00 Test Item Value Reference Range Interpretation Comments Eosinophils (test code = 1.9 See_Comment [A utomated message] The Eosinophils) system which ge nerated this result tra nsmitted reference range : <=4.0. The reference r bret was not used to int erpret this result as normal/abnormal . [facility] CenterFrmwqjtVBVCIYFXCA9932-55-62 10:52:00 Test Item Value Reference Range Interpretation Comments Monocytes (test code = Monocytes) 11.0 2.0-12.0 [facility] CenterYynarytYUHPXJBMAE6033-72-40 10:52:00 Test Item Value Reference Range Interpretation Comments Segs (test code = Segs) 65.3 45.0-75.0 [facility] CenterJqamkuxJKJFIUUHQO9638-27-52 10:52:00 Test Item Value Reference Range Interpretation Comments WBC (test code = WBC) 6.2 3.7-10.4 [facility] CenterCuhibavMTWKJVTFUH2481-17-05 10:52:00 Test Item Value Reference Range Interpretation Comments MCH (test code = MCH) 27.3 pg 27.0-31.0 [facility] CenterSgvncioQKRWCOSVCB7069-26-88 10:52:00 Test Item Value Reference Range Interpretation Comments MCV (test code = MCV) 83.7 80.0-94.0 [facility] CenterFibolcjGZQITBZSNC1003-38-43 10:52:00 Test Item Value Reference Range Interpretation Comments RBC (test code = RBC) 3.80 4.70-6.10 [facility] CenterYljhgfsUKBCXHZEBG6602-39-21 10:52:00 Test Item Value Reference Range Interpretation Comments Hct (test code = Hct) 31.8 42.0-54.0 [facility] CenterWeraeubQTSUBQNTCN1229-71-69 10:52:00 Test Item Value Reference Range Interpretation Comments Hgb (test code = Hgb) 10.4 14.0-18.0 [facility] CenterOrsehlgADYPXNKFQD2942-30-64 10:52:00 Test Item Value Reference Range Interpretation Comments RDW (test code = RDW) 17.7 11.5-14.5 [facility] CenterIgbwnttFHNFLAVGWR7654-33-74 10:52:00 Test Item Value Reference Range Interpretation Comments MCHC (test code = MCHC) 32.6 32.0-36.0 [facility] CenterQusayjoXDJXXEYCRC2035-03-85 10:52:00 Test Item Value Reference Range Interpretation Comments MPV (test code = MPV) 8.7 7.4-10.4 [facility] CenterPdbdkuoOGCGNRXZNH2075-20-66 10:52:00 Test Item Value Reference Range Interpretation Comments Platelet (test code = Platelet) 167 133-450 [facility] CenterEusntscIWOYGGNYHT8344-53-29 10:52:00 Test Item Value Reference Range Interpretation Comments Neutrophils # (test code = Neutrophils 4.1 1.5-8.1 #) [facility] CenterUhjkpljXZQYRIYXHY6511-23-53 10:52:00 Test Item Value Reference Range Interpretation Comments Basophils (test code = 1.3 See_Comment [Aut omated message] The Basophils) system which ge nerated this result tra nsmitted reference range : <=1.0. The reference r bret was not used to int erpret this result as normal/abnormal . [facility] CenterCeccurdEPAPSMYBYT7570-19-97 10:52:00 Test Item Value Reference Range Interpretation Comments Monocytes # (test code 0.7 See_Comment [Aut omated message] The = Monocytes #) system which generated this result tra nsmitted reference range : <=0.8. The reference r bret was not used to int erpret this result as normal/abnormal . [facility] CenterZsnyvahSLXMJRSYXL5696-69-72 10:52:00 Test Item Value Reference Range Interpretation Comments Lymphocytes # (test code = Lymphocytes 1.3 1.0-5.5 #) [facility] CenterXuaxfpgGTQSJWFWOY4490-80-98 10:52:00 Test Item Value Reference Range Interpretation Comments Eosinophils # (test code 0.1 See_Comment [A utomated message] The = Eosinophils #) system whic h generated this result tra nsmitted reference range : <=0.5. The reference r bret was not used to int erpret this result as normal/abnormal . [facility] CenterQrxuyadHMNKQPUMHG3788-92-70 10:52:00 Test Item Value Reference Range Interpretation Comments Basophils # (test code 0.1 See_Comment [Aut omated message] The = Basophils #) system which generated this result tra nsmitted reference range : <=0.2. The reference r bret was not used to int erpret this result as normal/abnormal . [facility] CenterRrrzqwiOOYUXAVEQF9648-12-52 10:52:00 Test Item Value Reference Range Interpretation Comments Lymphocytes (test code = Lymphocytes) 20.5 20.0-40.0 [facility] CenterVfaquqcNJMUCIPNZL2764-94-07 10:52:00 Test Item Value Reference Range Interpretation Comments Eosinophils (test code = 1.9 See_Comment [A utomated message] The Eosinophils) system which ge nerated this result tra nsmitted reference range : <=4.0. The reference r bret was not used to int erpret this result as normal/abnormal . [facility] CenterJawzegvDXPFVFBPEB9443-30-43 10:52:00 Test Item Value Reference Range Interpretation Comments Monocytes (test code = Monocytes) 11.0 2.0-12.0 [facility] CenterWowaibmZFMKYFVJRR0717-86-14 10:52:00 Test Item Value Reference Range Interpretation Comments Segs (test code = Segs) 65.3 45.0-75.0 [facility] CenterPmmfyspXGNHTENCKL0136-06-69 10:52:00 Test Item Value Reference Range Interpretation Comments WBC (test code = WBC) 6.2 3.7-10.4 [facility] CenterJduepfuWYRHKGHQBV7567-74-12 10:52:00 Test Item Value Reference Range Interpretation Comments MCH (test code = MCH) 27.3 pg 27.0-31.0 [facility] CenterGdgdmlmQWTANKCSLR2493-35-06 10:52:00 Test Item Value Reference Range Interpretation Comments MCV (test code = MCV) 83.7 80.0-94.0 [facility] CenterHxtwiswKCSDQQVEWV5775-36-80 10:52:00 Test Item Value Reference Range Interpretation Comments RBC (test code = RBC) 3.80 4.70-6.10 [facility] CenterCtffvjaUWIHYMEIKD2801-41-07 10:52:00 Test Item Value Reference Range Interpretation Comments Hct (test code = Hct) 31.8 42.0-54.0 [facility] CenterDkseybxQCKBQNTWZK0353-87-06 10:52:00 Test Item Value Reference Range Interpretation Comments Hgb (test code = Hgb) 10.4 14.0-18.0 [facility] CenterIhxoevcXASZYUKTBV3317-01-66 10:52:00 Test Item Value Reference Range Interpretation Comments RDW (test code = RDW) 17.7 11.5-14.5 [facility]UspbkrgJZPBCTIRMW8115-73-98 10:52:00 Test Item Value Reference Range Interpretation Comments MCHC (test code = MCHC) 32.6 32.0-36.0 [facility] CenterFqilxotOKZVGKHTCN4678-79-57 10:52:00 Test Item Value Reference Range Interpretation Comments MPV (test code = MPV) 8.7 7.4-10.4 [facility] CenterKqxcdiqHHDBNMLTQT9088-64-59 10:52:00 Test Item Value Reference Range Interpretation Comments Platelet (test code = Platelet) 167 133-450 [facility] CenterJmtpfuaYPMMISOMJT0232-92-97 10:52:00 Test Item Value Reference Range Interpretation Comments Neutrophils # (test code = Neutrophils 4.1 1.5-8.1 #) [facility] CenterJftgddgQDYCICTEWN9768-61-67 10:52:00 Test Item Value Reference Range Interpretation Comments Basophils (test code = 1.3 See_Comment [Aut omated message] The Basophils) system which ge nerated this result tra nsmitted reference range : <=1.0. The reference r bret was not used to int erpret this result as normal/abnormal . [facility] CenterZankrqmDPUEVOAVHM3194-59-26 10:52:00 Test Item Value Reference Range Interpretation Comments Monocytes # (test code 0.7 See_Comment [Aut omated message] The = Monocytes #) system which generated this result tra nsmitted reference range : <=0.8. The reference r bret was not used to int erpret this result as normal/abnormal . [facility] CenterYfksoojCSPDPBUFVM7966-45-54 10:52:00 Test Item Value Reference Range Interpretation Comments Lymphocytes # (test code = Lymphocytes 1.3 1.0-5.5 #) [facility] CenterMjguqnnAAQATXMYIY4202-93-62 10:52:00 Test Item Value Reference Range Interpretation Comments Eosinophils # (test code 0.1 See_Comment [A utomated message] The = Eosinophils #) system whic h generated this result tra nsmitted reference range : <=0.5. The reference r bret was not used to int erpret this result as normal/abnormal . [facility] CenterDpjvxioTVXKKYNCPH7055-52-73 10:52:00 Test Item Value Reference Range Interpretation Comments Basophils # (test code 0.1 See_Comment [Aut omated message] The = Basophils #) system which generated this result tra nsmitted reference range : <=0.2. The reference r bret was not used to int erpret this result as normal/abnormal . [facility] CenterTqgtaswUMTHUXGMIK8419-00-56 10:52:00 Test Item Value Reference Range Interpretation Comments Lymphocytes (test code = Lymphocytes) 20.5 20.0-40.0 [facility] CenterUrxhmwiABVMDDYWKI2960-08-88 10:52:00 Test Item Value Reference Range Interpretation Comments Eosinophils (test code = 1.9 See_Comment [A utomated message] The Eosinophils) system which ge nerated this result tra nsmitted reference range : <=4.0. The reference r bret was not used to int erpret this result as normal/abnormal . [facility] CenterChcaobnGJSLUAGSDB8274-36-65 10:52:00 Test Item Value Reference Range Interpretation Comments Monocytes (test code = Monocytes) 11.0 2.0-12.0 [facility] CenterFmmhyrlZJZODPHWAQ6330-80-90 10:52:00 Test Item Value Reference Range Interpretation Comments Segs (test code = Segs) 65.3 45.0-75.0 [facility] CenterFfpkzwbHCQNXKDIVI4164-41-24 10:52:00 Test Item Value Reference Range Interpretation Comments WBC (test code = WBC) 6.2 3.7-10.4 [facility] CenterLdrrevzLVSBOPIWYA4949-62-38 10:52:00 Test Item Value Reference Range Interpretation Comments MCH (test code = MCH) 27.3 pg 27.0-31.0 [facility] CenterPfgkswjUAIRPPRFNN8891-80-25 10:52:00 Test Item Value Reference Range Interpretation Comments MCV (test code = MCV) 83.7 80.0-94.0 [facility] CenterRoidzwhOZYOEULKEK7525-82-88 10:52:00 Test Item Value Reference Range Interpretation Comments RBC (test code = RBC) 3.80 4.70-6.10 [facility] CenterGqxoanyBLDXJFQHTA2681-60-38 10:52:00 Test Item Value Reference Range Interpretation Comments Hct (test code = Hct) 31.8 42.0-54.0 [facility] CenterQfdcpltCJPUQBUHSE4504-86-35 10:52:00 Test Item Value Reference Range Interpretation Comments Hgb (test code = Hgb) 10.4 14.0-18.0 [facility] CenterNqbtqovPEKKWRNXTE8501-95-28 10:52:00 Test Item Value Reference Range Interpretation Comments RDW (test code = RDW) 17.7 11.5-14.5 [facility] CenterQynbvbfNXFEJEETMK3412-52-19 10:52:00 Test Item Value Reference Range Interpretation Comments MCHC (test code = MCHC) 32.6 32.0-36.0 [facility] CenterFlamgdbRATSXCPWHV7589-77-06 10:52:00 Test Item Value Reference Range Interpretation Comments MPV (test code = MPV) 8.7 7.4-10.4 [facility] CenterTfnavogMJKVPYPCBR1954-98-71 10:52:00 Test Item Value Reference Range Interpretation Comments Platelet (test code = Platelet) 167 133-450 [facility] CenterVxcnyzdJIPEMOZJOM7762-73-80 10:52:00 Test Item Value Reference Range Interpretation Comments Neutrophils # (test code = Neutrophils 4.1 1.5-8.1 #) [facility] CenterLawltjuJUTPKKJZMY0621-57-08 10:52:00 Test Item Value Reference Range Interpretation Comments Basophils (test code = 1.3 See_Comment [Aut omated message] The Basophils) system which ge nerated this result tra nsmitted reference range : <=1.0. The reference r bret was not used to int erpret this result as normal/abnormal . [facility] CenterUhiyrxdEEYJFFQRMM0699-12-88 10:52:00 Test Item Value Reference Range Interpretation Comments Monocytes # (test code 0.7 See_Comment [Aut omated message] The = Monocytes #) system which generated this result tra nsmitted reference range : <=0.8. The reference r bret was not used to int erpret this result as normal/abnormal . [facility] CenterAiapatrMKXYOWXUMA1112-71-84 10:52:00 Test Item Value Reference Range Interpretation Comments Lymphocytes # (test code = Lymphocytes 1.3 1.0-5.5 #) [facility] CenterKszkpexJNFLAADNBB2873-28-25 10:52:00 Test Item Value Reference Range Interpretation Comments Eosinophils # (test code 0.1 See_Comment [A utomated message] The = Eosinophils #) system whic h generated this result tra nsmitted reference range : <=0.5. The reference r bret was not used to int erpret this result as normal/abnormal . [facility] CenterBkissmkJKLWBSIUQI6300-23-49 10:52:00 Test Item Value Reference Range Interpretation Comments Basophils # (test code 0.1 See_Comment [Aut omated message] The = Basophils #) system which generated this result tra nsmitted reference range : <=0.2. The reference r bret was not used to int erpret this result as normal/abnormal . [facility] CenterTlsmwtrJPNEINZICD8348-37-38 10:52:00 Test Item Value Reference Range Interpretation Comments Lymphocytes (test code = Lymphocytes) 20.5 20.0-40.0 [facility] CenterEnxezrmYOEPFVNZPK3567-28-74 10:52:00 Test Item Value Reference Range Interpretation Comments Eosinophils (test code = 1.9 See_Comment [A utomated message] The Eosinophils) system which ge nerated this result tra nsmitted reference range : <=4.0. The reference r bret was not used to int erpret this result as normal/abnormal . [facility] CenterPzdmijmAYDUAFCGGI1398-49-59 10:52:00 Test Item Value Reference Range Interpretation Comments Monocytes (test code = Monocytes) 11.0 2.0-12.0 [facility] CenterAilwzerIZQCSPFELB7337-47-65 10:52:00 Test Item Value Reference Range Interpretation Comments Segs (test code = Segs) 65.3 45.0-75.0 [facility] CenterMjvodhrYDRZJHLHLD4030-08-24 10:52:00 Test Item Value Reference Range Interpretation Comments WBC (test code = WBC) 6.2 3.7-10.4 [facility] CenterTjommmhOFGGIDDOZP5823-47-69 10:52:00 Test Item Value Reference Range Interpretation Comments MCH (test code = MCH) 27.3 pg 27.0-31.0 [facility] CenterXmcritiNNWKYSAULW3025-45-51 10:52:00 Test Item Value Reference Range Interpretation Comments MCV (test code = MCV) 83.7 80.0-94.0 [facility] CenterVrwhivqVWMBRMELTM9645-77-03 10:52:00 Test Item Value Reference Range Interpretation Comments RBC (test code = RBC) 3.80 4.70-6.10 [facility] CenterYtlxrtfOUOXNOSDIK4920-70-60 10:52:00 Test Item Value Reference Range Interpretation Comments Hct (test code = Hct) 31.8 42.0-54.0 [facility] CenterLntplrkEYYURDPUMN4981-21-29 10:52:00 Test Item Value Reference Range Interpretation Comments Hgb (test code = Hgb) 10.4 14.0-18.0 [facility] CenterYymcmtsMKOBNUJVGJ5214-81-55 10:52:00 Test Item Value Reference Range Interpretation Comments RDW (test code = RDW) 17.7 11.5-14.5 [facility] CenterTrgqcobIFGLXTWWXG2715-75-77 10:52:00 Test Item Value Reference Range Interpretation Comments MCHC (test code = MCHC) 32.6 32.0-36.0 [facility] CenterFmnjidnMGESWXCGDP9702-74-59 10:52:00 Test Item Value Reference Range Interpretation Comments MPV (test code = MPV) 8.7 7.4-10.4 [facility] CenterKnahbglLWDNNGKWVS4112-63-65 10:52:00 Test Item Value Reference Range Interpretation Comments Platelet (test code = Platelet) 167 133-450 [facility] CenterBcsymewNMRNGBWYSX0218-57-99 10:52:00 Test Item Value Reference Range Interpretation Comments Neutrophils # (test code = Neutrophils 4.1 1.5-8.1 #) [facility] CenterDbhwcqzHXRCBJFRLS8111-39-05 10:52:00 Test Item Value Reference Range Interpretation Comments Basophils (test code = 1.3 See_Comment [Aut omated message] The Basophils) system which ge nerated this result tra nsmitted reference range : <=1.0. The reference r bret was not used to int erpret this result as normal/abnormal . [facility] CenterOjcsbitKZONQNFSAA8435-72-62 10:52:00 Test Item Value Reference Range Interpretation Comments Monocytes # (test code 0.7 See_Comment [Aut omated message] The = Monocytes #) system which generated this result tra nsmitted reference range : <=0.8. The reference r bret was not used to int erpret this result as normal/abnormal . [facility] CenterDjzzafrSQBEIYACWO5393-72-78 10:52:00 Test Item Value Reference Range Interpretation Comments Lymphocytes # (test code = Lymphocytes 1.3 1.0-5.5 #) [facility] CenterLtbndtxOGYLMYCPZF5864-66-75 10:52:00 Test Item Value Reference Range Interpretation Comments Eosinophils # (test code 0.1 See_Comment [A utomated message] The = Eosinophils #) system whic h generated this result tra nsmitted reference range : <=0.5. The reference r bret was not used to int erpret this result as normal/abnormal . [facility] CenterHclrcbuKXMUGUOWKC6049-88-72 10:52:00 Test Item Value Reference Range Interpretation Comments Basophils # (test code 0.1 See_Comment [Aut omated message] The = Basophils #) system which generated this result tra nsmitted reference range : <=0.2. The reference r bret was not used to int erpret this result as normal/abnormal . [facility] CenterYdgkimkEJRUQIIKNM7185-32-96 10:52:00 Test Item Value Reference Range Interpretation Comments Lymphocytes (test code = Lymphocytes) 20.5 20.0-40.0 [facility] CenterLwkmqkkNVUXFJHLMO0902-68-99 10:52:00 Test Item Value Reference Range Interpretation Comments Eosinophils (test code = 1.9 See_Comment [A utomated message] The Eosinophils) system which ge nerated this result tra nsmitted reference range : <=4.0. The reference r bret was not used to int erpret this result as normal/abnormal . [facility] CenterNjrurweFBPTFLUEKI0239-94-29 10:52:00 Test Item Value Reference Range Interpretation Comments Monocytes (test code = Monocytes) 11.0 2.0-12.0 [facility] CenterGxnhomfSEACOPYKBB6858-21-03 10:52:00 Test Item Value Reference Range Interpretation Comments Segs (test code = Segs) 65.3 45.0-75.0 [facility]IUBSOPIK7281[facility] 10:52:00 Test Item Value Reference Range Interpretation Comments WBC (test code = WBC) 6.2 3.7-10.4 [facility]OjxrebnFVWMLSCDGM8782-63-65 10:52:00 Test Item Value Reference Range Interpretation Comments MCH (test code = MCH) 27.3 pg 27.0-31.0 [facility] CenterNzodtzvPZPTYDPDKB3416-67-21 10:52:00 Test Item Value Reference Range Interpretation Comments MCV (test code = MCV) 83.7 80.0-94.0 [facility]XtgziqkNAGVVKJEYP3369-69-94 10:52:00 Test Item Value Reference Range Interpretation Comments RBC (test code = RBC) 3.80 4.70-6.10 [facility] CenterHskyojzFXJMYTMWEJ5654-44-85 10:52:00 Test Item Value Reference Range Interpretation Comments Hct (test code = Hct) 31.8 42.0-54.0 [facility] CenterCfqfvmhEEMMZNAZMN6524-33-04 10:52:00 Test Item Value Reference Range Interpretation Comments Hgb (test code = Hgb) 10.4 14.0-18.0 [facility] CenterHrbnszxIUGWXNBKKQ5398-89-67 10:52:00 Test Item Value Reference Range Interpretation Comments RDW (test code = RDW) 17.7 11.5-14.5 [facility] CenterSdqhdsvAZYCENQDVN4291-19-37 10:52:00 Test Item Value Reference Range Interpretation Comments MCHC (test code = MCHC) 32.6 32.0-36.0 [facility] CenterUoathznYBWHYCOAVF2388-26-67 10:52:00 Test Item Value Reference Range Interpretation Comments MPV (test code = MPV) 8.7 7.4-10.4 [facility]BlgenwgGAFJKFJYUW6373-99-69 10:52:00 Test Item Value Reference Range Interpretation Comments Platelet (test code = Platelet) 167 133-[address] [facility] [place], TxCARDIAC [id number] 07:38:00 Test Item Value Reference Range Interpretation Comments Troponin-I (test code no gt See_Comment [Auto mated message] The = Troponin-I) system which g enerated this result transmit jw reference range : <=0.40. The reference r bret was not used to interpr et this result as mateo l/abnormal. [facility] [id number] 07:38:00 Test Item Value Reference Range Interpretation Comments Calcium Lvl (test code = Calcium Lvl) 7.2 8.5-10.5 [facility]2018-10-24 07:38:00 Test Item Value Reference Range Interpretation Comments AGAP (test code = AGAP) 13.6 10.0-20.0 [facility] [id number] 07:38:00 Test Item Value Reference Range Interpretation Comments Sodium Lvl (test code = Sodium Lvl) 137 135-145 [facility]2018-10-24 07:38:00 Test Item Value Reference Range Interpretation Comments Creatinine Lvl (test code = Creatinine 0.81 0.50-1.40 Lvl) [facility]2018-10-24 07:38:00 Test Item Value Reference Range Interpretation Comments Potassium Lvl (test code = Potassium 3.6 3.5-5.1 Lvl) [facility]2018-10-24 07:38:00 Test Item Value Reference Range Interpretation Comments CO2 (test code = CO2) 19 24-32 [facility]2018-10-24 07:38:00 Test Item Value Reference Range Interpretation Comments Chloride Lvl (test code = Chloride Lvl) 108 95-109 [facility]2018-10-24 07:38:00 Test Item Value Reference Range Interpretation Comments eGFR (test code = eGFR) 91 [facility]2018-10-24 07:38:00 Test Item Value Reference Range Interpretation Comments BUN (test code = BUN) 17 7-22 [facility] [id number] 07:38:00 Test Item Value Reference Range Interpretation Comments Glucose Lvl (test code = Glucose Lvl) 82 70-[address] [facility], TxCARDIAC [id number] 07:38:00 Test Item Value Reference Range Interpretation Comments Troponin-I (test code no gt See_Comment [Auto mated message] The = Troponin-I) system which g enerated this result transmit jw reference range : <=0.40. The reference r bret was not used to interpr et this result as mateo l/abnormal. [facility], TxCE2 [employer] [id number] 07:38:00 Test Item Value Reference Range Interpretation Comments Calcium Lvl (test code = Calcium Lvl) 7.2 8.5-10.5 [facility] [id number] 07:38:00 Test Item Value Reference Range Interpretation Comments AGAP (test code = AGAP) 13.6 10.0-20.0 [facility] [id number] 07:38:00 Test Item Value Reference Range Interpretation Comments Sodium Lvl (test code = Sodium Lvl) 137 135-145 [facility] [id number] 07:38:00 Test Item Value Reference Range Interpretation Comments Creatinine Lvl (test code = Creatinine 0.81 0.50-1.40 Lvl) [facility] W[facility] [id number] 07:38:00 Test Item Value Reference Range Interpretation Comments Potassium Lvl (test code = Potassium 3.6 3.5-5.1 Lvl) [facility]UN[facility] [id number] 07:38:00 Test Item Value Reference Range Interpretation Comments CO2 (test code = CO2) 19 24-32 [facility] [id number] 07:38:00 Test Item Value Reference Range Interpretation Comments Chloride Lvl (test code = Chloride Lvl) 108 95-109 [facility] [id number] 07:38:00 Test Item Value Reference Range Interpretation Comments eGFR (test code = eGFR) 91 [facility]2018-10-24 07:38:00 Test Item Value Reference Range Interpretation Comments BUN (test code = BUN) 17 7-22 [facility] [id number] 07:38:00 Test Item Value Reference Range Interpretation Comments Glucose Lvl (test code = Glucose Lvl) 82 70-[address] [facility], TxCARDIAC [id number] 07:38:00 Test Item Value Reference Range Interpretation Comments Troponin-I (test code no gt See_Comment [Auto mated message] The = Troponin-I) system which g enerated this result transmit jw reference range : <=0.40. The reference r bret was not used to interpr et this result as mateo l/abnormal. [facility], TxCE2 [employer] [id number] 07:38:00 Test Item Value Reference Range Interpretation Comments Calcium Lvl (test code = Calcium Lvl) 7.2 8.5-10.5 [facility]2018-10-24 07:38:00 Test Item Value Reference Range Interpretation Comments AGAP (test code = AGAP) 13.6 10.0-20.0 [facility]2018-10-24 07:38:00 Test Item Value Reference Range Interpretation Comments Sodium Lvl (test code = Sodium Lvl) 137 135-145 [facility]2018-10-24 07:38:00 Test Item Value Reference Range Interpretation Comments Creatinine Lvl (test code = Creatinine 0.81 0.50-1.40 Lvl) [facility]2018-10-24 07:38:00 Test Item Value Reference Range Interpretation Comments Potassium Lvl (test code = Potassium 3.6 3.5-5.1 Lvl) [facility]2018-10-24 07:38:00 Test Item Value Reference Range Interpretation Comments CO2 (test code = CO2) 19 24-32 [facility]2018-10-24 07:38:00 Test Item Value Reference Range Interpretation Comments Chloride Lvl (test code = Chloride Lvl) 108 95-109 [facility]2018-10-24 07:38:00 Test Item Value Reference Range Interpretation Comments eGFR (test code = eGFR) 91 [facility]2018-10-24 07:38:00 Test Item Value Reference Range Interpretation Comments BUN (test code = BUN) 17 7-22 [facility]2018-10-24 07:38:00 Test Item Value Reference Range Interpretation Comments Glucose Lvl (test code = Glucose Lvl) 82 70-[address] [facility] [place], TxCARDIAC [id number] 07:38:00 Test Item Value Reference Range Interpretation Comments Troponin-I (test code no gt See_Comment [Auto mated message] The = Troponin-I) system which g enerated this result transmit jw reference range : <=0.40. The reference r bret was not used to interpr et this result as mateo l/abnormal. [facility]2018-10-24 07:38:00 Test Item Value Reference Range Interpretation Comments Calcium Lvl (test code = Calcium Lvl) 7.2 8.5-10.5 [facility]2018-10-24 07:38:00 Test Item Value Reference Range Interpretation Comments AGAP (test code = AGAP) 13.6 10.0-20.0 [facility] [id number] 07:38:00 Test Item Value Reference Range Interpretation Comments Sodium Lvl (test code = Sodium Lvl) 137 135-145 [facility]2018-10-24 07:38:00 Test Item Value Reference Range Interpretation Comments Creatinine Lvl (test code = Creatinine 0.81 0.50-1.40 Lvl) [facility]2018-10-24 07:38:00 Test Item Value Reference Range Interpretation Comments Potassium Lvl (test code = Potassium 3.6 3.5-5.1 Lvl) [facility] [id number] 07:38:00 Test Item Value Reference Range Interpretation Comments CO2 (test code = CO2) 19 24-32 [facility]2018-10-24 07:38:00 Test Item Value Reference Range Interpretation Comments Chloride Lvl (test code = Chloride Lvl) 108 95-109 [facility]2018-10-24 07:38:00 Test Item Value Reference Range Interpretation Comments eGFR (test code = eGFR) 91 [facility]2018-10-24 07:38:00 Test Item Value Reference Range Interpretation Comments BUN (test code = BUN) 17 7-22 [facility] [id number] 07:38:00 Test Item Value Reference Range Interpretation Comments Glucose Lvl (test code = Glucose Lvl) 82 70-[address] [facility], TxCARDIAC [id number] 07:38:00 Test Item Value Reference Range Interpretation Comments Troponin-I (test code no gt See_Comment [Auto mated message] The = Troponin-I) system which g enerated this result transmit jw reference range : <=0.40. The reference r bret was not used to interpr et this result as mateo l/abnormal. [facility]2018-10-24 07:38:00 Test Item Value Reference Range Interpretation Comments Calcium Lvl (test code = Calcium Lvl) 7.2 8.5-10.5 [facility]2018-10-24 07:38:00 Test Item Value Reference Range Interpretation Comments AGAP (test code = AGAP) 13.6 10.0-20.0 [facility]2018-10-24 07:38:00 Test Item Value Reference Range Interpretation Comments Sodium Lvl (test code = Sodium Lvl) 137 135-145 [facility]2018-10-24 07:38:00 Test Item Value Reference Range Interpretation Comments Creatinine Lvl (test code = Creatinine 0.81 0.50-1.40 Lvl) [facility]2018-10-24 07:38:00 Test Item Value Reference Range Interpretation Comments Potassium Lvl (test code = Potassium 3.6 3.5-5.1 Lvl) [facility]2018-10-24 07:38:00 Test Item Value Reference Range Interpretation Comments CO2 (test code = CO2) 19 24-32 [facility]2018-10-24 07:38:00 Test Item Value Reference Range Interpretation Comments Chloride Lvl (test code = Chloride Lvl) 108 95-109 [facility]2018-10-24 07:38:00 Test Item Value Reference Range Interpretation Comments eGFR (test code = eGFR) 91 [facility]2018-10-24 07:38:00 Test Item Value Reference Range Interpretation Comments BUN (test code = BUN) 17 7-22 [facility]2018-10-24 07:38:00 Test Item Value Reference Range Interpretation Comments Glucose Lvl (test code = Glucose Lvl) 82 70-[address] [facility], TxCARDIAC [id number] 07:38:00 Test Item Value Reference Range Interpretation Comments Troponin-I (test code no gt See_Comment [Auto mated message] The = Troponin-I) system which g enerated this result transmit jw reference range : <=0.40. The reference r bret was not used to interpr et this result as mateo l/abnormal. [facility], TxCE2 [employer] [id number] 07:38:00 Test Item Value Reference Range Interpretation Comments Calcium Lvl (test code = Calcium Lvl) 7.2 8.5-10.5 [facility]2018-10-24 07:38:00 Test Item Value Reference Range Interpretation Comments AGAP (test code = AGAP) 13.6 10.0-20.0 [facility]2018-10-24 07:38:00 Test Item Value Reference Range Interpretation Comments Sodium Lvl (test code = Sodium Lvl) 137 135-145 [facility]2018-10-24 07:38:00 Test Item Value Reference Range Interpretation Comments Creatinine Lvl (test code = Creatinine 0.81 0.50-1.40 Lvl) [facility]2018-10-24 07:38:00 Test Item Value Reference Range Interpretation Comments Potassium Lvl (test code = Potassium 3.6 3.5-5.1 Lvl) [facility]2018-10-24 07:38:00 Test Item Value Reference Range Interpretation Comments CO2 (test code = CO2) 19 -32 [facility]2018-10-24 07:38:00 Test Item Value Reference Range Interpretation Comments Chloride Lvl (test code = Chloride Lvl) 108 95-109 [facility]2018-10-24 07:38:00 Test Item Value Reference Range Interpretation Comments eGFR (test code = eGFR) 91 [facility]2018-10-24 07:38:00 Test Item Value Reference Range Interpretation Comments BUN (test code = BUN) 17 7-22 [facility]2018-10-24 07:38:00 Test Item Value Reference Range Interpretation Comments Glucose Lvl (test code = Glucose Lvl) 82 70-99 [facility]2018-10-24 02:35:00 Test Item Value Reference Range Interpretation Comments Lactic Acid Lvl (test code = Lactic 1.5 0.5-2.2 Acid Lvl) [facility]2018-10-24 02:35:00 Test Item Value Reference Range Interpretation Comments Lactic Acid Lvl (test code = Lactic 1.5 0.5-2.2 Acid Lvl) [facility]2018-10-24 02:35:00 Test Item Value Reference Range Interpretation Comments Lactic Acid Lvl (test code = Lactic 1.5 0.5-2.2 Acid Lvl) [facility]2018-10-24 02:35:00 Test Item Value Reference Range Interpretation Comments Lactic Acid Lvl (test code = Lactic 1.5 0.5-2.2 Acid Lvl) [facility]2018-10-24 02:35:00 Test Item Value Reference Range Interpretation Comments Lactic Acid Lvl (test code = Lactic 1.5 0.5-2.2 Acid Lvl) [facility]2018-10-24 02:35:00 Test Item Value Reference Range Interpretation Comments Lactic Acid Lvl (test code = Lactic 1.5 0.5-2.2 Acid Lvl) [facility] [place], TxCHEM [id number] 00:27:00 Test Item Value Reference Range Interpretation Comments Lactic Acid Lvl (test code = Lactic 1.3 0.5-2.2 Acid Lvl) [facility] HospitalVxoohjoLUCFYC0280-86-14 00:27:00 Test Item Value Reference Range Interpretation Comments Trig (test code = Trig) 89 [facility] Ho[id number] 00:27:00 Test Item Value Reference Range Interpretation Comments Chol (test code = Chol) [address] [facility] [place], [id number] 00:27:00 Test Item Value Reference Range Interpretation Comments HDL (test code = HDL) [address] [facility] [place], TxIztpeezSZPZGL8408-06-50 00:27:00 Test Item Value Reference Range Interpretation Comments CHD Risk (test code = CHD Risk) 4.55 1 4.00-7.[address] [facility] [place], [id number] 00:27:00 Test Item Value Reference Range Interpretation Comments LDL (Calculated) (test code = LDL 99 (Calculated)) [facility] [place], TxJhunrmlVEIAUS8873-36-60 00:27:00 Test Item Value Reference Range Interpretation Comments VLDL (test code = VLDL) 18 [facility] [id number] 00:27:00 Test Item Value Reference Range Interpretation Comments Hgb A1C (test code = Hgb A1C) 6.0 [facility]annATL[facility] AND [id number] 00:27:00 Test Item Value Reference Range Interpretation Comments UA Blood (test code = Negative (12/28/17 7:27 UA Blood) PM) [facility] AND [id number] 00:27:00 Test Item Value Reference Range Interpretation Comments UA Spec Grav (test *NA*(12/28/17 7:27 PM) code = UA Spec Grav) [facility]annATL[facility] AND [id number] 00:27:00 Test Item Value Reference Range Interpretation Comments UA Turbidity (test code = Clear (12/28/17 7:27 UA Turbidity) PM) [facility]annATL[facility] AND [id number] 00:27:00 Test Item Value Reference Range Interpretation Comments UA Glucose (test code Negative (12/28/17 7:27 = UA Glucose) PM) [facility] [id number] 00:27:00 Test Item Value Reference Range Interpretation Comments UA Protein (test code Negative (12/28/17 7:27 = UA Protein) PM) [facility] [id number] 00:27:00 Test Item Value Reference Range Interpretation Comments UA Bili (test code = Negative *NA*(12/28/17 UA Bili) 7:27 PM) [facility] [id number] 00:27:00 Test Item Value Reference Range Interpretation Comments UA Ketones (test code Negative *NA*(12/28/17 = UA Ketones) 7:27 PM) [facility] [id number] 00:27:00 Test Item Value Reference Range Interpretation Comments UA Leuk Est (test Negative (12/28/17 7:27 code = UA Leuk Est) PM) [facility] [id number] 00:27:00 Test Item Value Reference Range Interpretation Comments UA Nitrite (test code Negative (12/28/17 7:27 = UA Nitrite) PM) [facility] [id number] 00:27:00 Test Item Value Reference Range Interpretation Comments UA Urobilinogen (test code = UA 0.2 0.1-1.0 Urobilinogen) [facility] [id number] 00:27:00 Test Item Value Reference Range Interpretation Comments UA pH (test code = UA pH) 7.0 1 5.0-8.0 [facility] [id number] 00:27:00 Test Item Value Reference Range Interpretation Comments UA Color (test code = Yellow *NA*(12/28/17 UA Color) 7:27 PM) [facility] [id number] 00:27:00 Test Item Value Reference Range Interpretation Comments UA Bacteria (test code = None Seen (12/28/17 UA Bacteria) 7:27 PM) [facility] [id number] 00:27:00 Test Item Value Reference Range Interpretation Comments UA WBC (test code = UA None Seen (12/28/17 WBC) 7:27 PM) [facility] [id number] 00:27:00 Test Item Value Reference Range Interpretation Comments UA Sq Epi (test code = UA Sq Epi) Rare /LPF [facility] [id number] 00:27:00 Test Item Value Reference Range Interpretation Comments Micro? (test code = Performed (12/28/17 7:27 Micro?) PM) [facility] [id number] 00:27:00 Test Item Value Reference Range Interpretation Comments UA RBC (test None Seen See_Comment [Automated [place]] code = UA RBC) (12/28/17 7:27 The system which PM) generated this result transmitted ref erence range: <=2. The reference range was not used to int erpret this result as normal/abnormal . [facility] TealiumannCHEM [id number] 00:27:00 Test Item Value Reference Range Interpretation Comments Lactic Acid Lvl (test code = Lactic 1.3 0.5-2.2 Acid Lvl) [facility] OvlrnqhRHRZSC2675-39-99 00:27:00 Test Item Value Reference Range Interpretation Comments Trig (test code = Trig) 89 [facility] [id number] 00:27:00 Test Item Value Reference Range Interpretation Comments Chol (test code = Chol) 150 [facility] HospitalVcjexqxRSNHNP8870-17-00 00:27:00 Test Item Value Reference Range Interpretation Comments HDL (test code = HDL) 33 [facility] [id number] 00:27:00 Test Item Value Reference Range Interpretation Comments CHD Risk (test code = CHD Risk) 4.55 1 4.00-7.30 [facility] TklwhcoBFZLQF9943-71-95 00:27:00 Test Item Value Reference Range Interpretation Comments LDL (Calculated) (test code = LDL 99 (Calculated)) [facility] QmdlxglTMGPFQ6206-93-06 00:27:00 Test Item Value Reference Range Interpretation Comments VLDL (test code = VLDL) 18 1 [facility] HospitalannSPECIAL [id number] 00:27:00 Test Item Value Reference Range Interpretation Comments Hgb A1C (test code = Hgb A1C) 6.0 [facility] [id number] 00:27:00 Test Item Value Reference Range Interpretation Comments UA Blood (test code = Negative (12/28/17 7:27 UA Blood) PM) [facility] [id number] 00:27:00 Test Item Value Reference Range Interpretation Comments UA Spec Grav (test *NA*(12/28/17 7:27 PM) code = UA Spec Grav) [facility] [id number] 00:27:00 Test Item Value Reference Range Interpretation Comments UA Turbidity (test code = Clear (12/28/17 7:27 UA Turbidity) PM) [facility] [id number] 00:27:00 Test Item Value Reference Range Interpretation Comments UA Glucose (test code Negative (12/28/17 7:27 = UA Glucose) PM) [facility] [id number] 00:27:00 Test Item Value Reference Range Interpretation Comments UA Protein (test code Negative (12/28/17 7:27 = UA Protein) PM) [facility] [id number] 00:27:00 Test Item Value Reference Range Interpretation Comments UA Bili (test code = Negative *NA*(12/28/17 UA Bili) 7:27 PM) [facility] AND [id number] 00:27:00 Test Item Value Reference Range Interpretation Comments UA Ketones (test code Negative *NA*(12/28/17 = UA Ketones) 7:27 PM) [facility]annATL[facility] AND [id number] 00:27:00 Test Item Value Reference Range Interpretation Comments UA Leuk Est (test Negative (12/28/17 7:27 code = UA Leuk Est) PM) [facility] AND [id number] 00:27:00 Test Item Value Reference Range Interpretation Comments UA Nitrite (test code Negative (12/28/17 7:27 = UA Nitrite) PM) [facility] AND [id number] 00:27:00 Test Item Value Reference Range Interpretation Comments UA Urobilinogen (test code = UA 0.2 0.1-1.0 Urobilinogen) [facility] [id number] 00:27:00 Test Item Value Reference Range Interpretation Comments UA pH (test code = UA pH) 7.0 1 5.0-8.0 [facility] AND [id number] 00:27:00 Test Item Value Reference Range Interpretation Comments UA Color (test code = Yellow *NA*(12/28/17 UA Color) 7:27 PM) [facility] [id number] 00:27:00 Test Item Value Reference Range Interpretation Comments UA Bacteria (test code = None Seen (12/28/17 UA Bacteria) 7:27 PM) [facility] [id number] 00:27:00 Test Item Value Reference Range Interpretation Comments UA WBC (test code = UA None Seen (12/28/17 WBC) 7:27 PM) [facility] [id number] 00:27:00 Test Item Value Reference Range Interpretation Comments UA Sq Epi (test code = UA Sq Epi) Rare /LPF [facility] [id number] 00:27:00 Test Item Value Reference Range Interpretation Comments Micro? (test code = Performed (12/28/17 7:27 Micro?) PM) [facility] [id number] 00:27:00 Test Item Value Reference Range Interpretation Comments UA RBC (test None Seen See_Comment [Automated [place]] code = UA RBC) (12/28/17 7:27 The system which PM) generated this result transmitted ref erence range: <=2. The reference range was not used to int erpret this result as normal/abnormal . [facility] TealiumannCHEM [id number] 00:27:00 Test Item Value Reference Range Interpretation Comments Lactic Acid Lvl (test code = Lactic 1.3 0.5-2.2 Acid Lvl) [facility] VkmznkaWFBIGY5108-24-26 00:27:00 Test Item Value Reference Range Interpretation Comments Trig (test code = Trig) 89 [facility] [id number] 00:27:00 Test Item Value Reference Range Interpretation Comments Chol (test code = Chol) 150 [facility] GawtpvhQLVCKO2376-16-10 00:27:00 Test Item Value Reference Range Interpretation Comments HDL (test code = HDL) 33 [facility] [id number] 00:27:00 Test Item Value Reference Range Interpretation Comments CHD Risk (test code = CHD Risk) 4.55 1 4.00-7.30 [facility] JyrqcirJCNMKL7192-20-05 00:27:00 Test Item Value Reference Range Interpretation Comments LDL (Calculated) (test code = LDL 99 (Calculated)) [facility] ZdbzfskEDCBJI7559-65-60 00:27:00 Test Item Value Reference Range Interpretation Comments VLDL (test code = VLDL) 18 1 [facility] [id number] 00:27:00 Test Item Value Reference Range Interpretation Comments Hgb A1C (test code = Hgb A1C) 6.0 [facility] [id number] 00:27:00 Test Item Value Reference Range Interpretation Comments UA Blood (test code = Negative (12/28/17 7:27 UA Blood) PM) [facility] [id number] 00:27:00 Test Item Value Reference Range Interpretation Comments UA Spec Grav (test *NA*(12/28/17 7:27 PM) code = UA Spec Grav) [facility] [id number] 00:27:00 Test Item Value Reference Range Interpretation Comments UA Turbidity (test code = Clear (12/28/17 7:27 UA Turbidity) PM) [facility] [id number] 00:27:00 Test Item Value Reference Range Interpretation Comments UA Glucose (test code Negative (12/28/17 7:27 = UA Glucose) PM) [facility] [id number] 00:27:00 Test Item Value Reference Range Interpretation Comments UA Protein (test code Negative (12/28/17 7:27 = UA Protein) PM) [facility] [id number] 00:27:00 Test Item Value Reference Range Interpretation Comments UA Bili (test code = Negative *NA*(12/28/17 UA Bili) 7:27 PM) [facility] [id number] 00:27:00 Test Item Value Reference Range Interpretation Comments UA Ketones (test code Negative *NA*(12/28/17 = UA Ketones) 7:27 PM) [facility] [id number] 00:27:00 Test Item Value Reference Range Interpretation Comments UA Leuk Est (test Negative (12/28/17 7:27 code = UA Leuk Est) PM) [facility] [id number] 00:27:00 Test Item Value Reference Range Interpretation Comments UA Nitrite (test code Negative (12/28/17 7:27 = UA Nitrite) PM) [facility] [id number] 00:27:00 Test Item Value Reference Range Interpretation Comments UA Urobilinogen (test code = UA 0.2 0.1-1.0 Urobilinogen) [facility] [id number] 00:27:00 Test Item Value Reference Range Interpretation Comments UA pH (test code = UA pH) 7.0 1 5.0-8.0 [facility] [id number] 00:27:00 Test Item Value Reference Range Interpretation Comments UA Color (test code = Yellow *NA*(12/28/17 UA Color) 7:27 PM) [facility] [id number] 00:27:00 Test Item Value Reference Range Interpretation Comments UA Bacteria (test code = None Seen (12/28/17 UA Bacteria) 7:27 PM) [facility] [id number] 00:27:00 Test Item Value Reference Range Interpretation Comments UA WBC (test code = UA None Seen (12/28/17 WBC) 7:27 PM) [facility] [id number] 00:27:00 Test Item Value Reference Range Interpretation Comments UA Sq Epi (test code = UA Sq Epi) Rare /LPF [facility] [id number] 00:27:00 Test Item Value Reference Range Interpretation Comments Micro? (test code = Performed (12/28/17 7:27 Micro?) PM) [facility] [id number] 00:27:00 Test Item Value Reference Range Interpretation Comments UA RBC (test None Seen See_Comment [Automated [place]] code = UA RBC) (12/28/17 7:27 The system which PM) generated this result transmitted ref erence range: <=2. The reference range was not used to int erpret this result as normal/abnormal . [facility]annCHEM [id number] 00:27:00 Test Item Value Reference Range Interpretation Comments Lactic Acid Lvl (test code = Lactic 1.3 0.5-2.2 Acid Lvl) [facility] ZrquawgNDTXST1506-34-29 00:27:00 Test Item Value Reference Range Interpretation Comments Trig (test code = Trig) 89 [facility] [id number] 00:27:00 Test Item Value Reference Range Interpretation Comments Chol (test code = Chol) 150 [facility] PmysfggZCUODZ9496-37-30 00:27:00 Test Item Value Reference Range Interpretation Comments HDL (test code = HDL) 33 [facility] [id number] 00:27:00 Test Item Value Reference Range Interpretation Comments CHD Risk (test code = CHD Risk) 4.55 1 4.00-7.30 [facility] [id number] 00:27:00 Test Item Value Reference Range Interpretation Comments LDL (Calculated) (test code = LDL 99 (Calculated)) [facility] SehpnbiCVTGWI2457-06-85 00:27:00 Test Item Value Reference Range Interpretation Comments VLDL (test code = VLDL) 18 1 [facility] [id number] 00:27:00 Test Item Value Reference Range Interpretation Comments Hgb A1C (test code = Hgb A1C) 6.0 [facility] [id number] 00:27:00 Test Item Value Reference Range Interpretation Comments UA Blood (test code = Negative (12/28/17 7:27 UA Blood) PM) [facility] [id number] 00:27:00 Test Item Value Reference Range Interpretation Comments UA Spec Grav (test *NA*(12/28/17 7:27 PM) code = UA Spec Grav) [facility] [id number] 00:27:00 Test Item Value Reference Range Interpretation Comments UA Turbidity (test code = Clear (12/28/17 7:27 UA Turbidity) PM) [facility] [id number] 00:27:00 Test Item Value Reference Range Interpretation Comments UA Glucose (test code Negative (12/28/17 7:27 = UA Glucose) PM) [facility] [id number] 00:27:00 Test Item Value Reference Range Interpretation Comments UA Protein (test code Negative (12/28/17 7:27 = UA Protein) PM) [facility] [id number] 00:27:00 Test Item Value Reference Range Interpretation Comments UA Bili (test code = Negative *NA*(12/28/17 UA Bili) 7:27 PM) [facility] [id number] 00:27:00 Test Item Value Reference Range Interpretation Comments UA Ketones (test code Negative *NA*(12/28/17 = UA Ketones) 7:27 PM) [facility] [id number] 00:27:00 Test Item Value Reference Range Interpretation Comments UA Leuk Est (test Negative (12/28/17 7:27 code = UA Leuk Est) PM) [facility] [id number] 00:27:00 Test Item Value Reference Range Interpretation Comments UA Nitrite (test code Negative (12/28/17 7:27 = UA Nitrite) PM) [facility] [id number] 00:27:00 Test Item Value Reference Range Interpretation Comments UA Urobilinogen (test code = UA 0.2 0.1-1.0 Urobilinogen) [facility] [id number] 00:27:00 Test Item Value Reference Range Interpretation Comments UA pH (test code = UA pH) 7.0 1 5.0-8.0 [facility] [id number] 00:27:00 Test Item Value Reference Range Interpretation Comments UA Color (test code = Yellow *NA*(12/28/17 UA Color) 7:27 PM) [facility] [id number] 00:27:00 Test Item Value Reference Range Interpretation Comments UA Bacteria (test code = None Seen (12/28/17 UA Bacteria) 7:27 PM) [facility] [id number] 00:27:00 Test Item Value Reference Range Interpretation Comments UA WBC (test code = UA None Seen (12/28/17 WBC) 7:27 PM) [facility] [id number] 00:27:00 Test Item Value Reference Range Interpretation Comments UA Sq Epi (test code = UA Sq Epi) Rare /LPF [facility] [id number] 00:27:00 Test Item Value Reference Range Interpretation Comments Micro? (test code = Performed (12/28/17 7:27 Micro?) PM) [facility] [id number] 00:27:00 Test Item Value Reference Range Interpretation Comments UA RBC (test None Seen See_Comment [Automated [place]] code = UA RBC) (12/28/17 7:27 The system which PM) generated this result transmitted ref erence range: <=2. The reference range was not used to int erpret this result as normal/abnormal . [facility]annCHE[facility] [id number] 00:27:00 Test Item Value Reference Range Interpretation Comments Lactic Acid Lvl (test code = Lactic 1.3 0.5-2.2 Acid Lvl) [facility] [id number] 00:27:00 Test Item Value Reference Range Interpretation Comments Trig (test code = Trig) 89 [facility] HospitalRlkuzegVQXDMN4258-28-76 00:27:00 Test Item Value Reference Range Interpretation Comments Chol (test code = Chol) 150 [facility] HospitalKersxagZIRQNL2407-51-71 00:27:00 Test Item Value Reference Range Interpretation Comments HDL (test code = HDL) 33 [facility] HospitalOtynkwqUMBBWS9912-68-05 00:27:00 Test Item Value Reference Range Interpretation Comments CHD Risk (test code = CHD Risk) 4.55 1 4.00-7.30 [facility] HospitalGbtahcfNXNIIQ1257-53-07 00:27:00 Test Item Value Reference Range Interpretation Comments LDL (Calculated) (test code = LDL 99 (Calculated)) [facility] HospitalDjswjjvDXTYFO5298-24-81 00:27:00 Test Item Value Reference Range Interpretation Comments VLDL (test code = VLDL) [address] [facility] [place] TxSPECIAL [id number] 00:27:00 Test Item Value Reference Range Interpretation Comments Hgb A1C (test code = Hgb A1C) 6.0 [facility]annATL[facility] AND [id number] 00:27:00 Test Item Value Reference Range Interpretation Comments UA Blood (test code = Negative (12/28/17 7:27 UA Blood) PM) [facility]ann[facility] AND [id number] 00:27:00 Test Item Value Reference Range Interpretation Comments UA Spec Grav (test *NA*(12/28/17 7:27 PM) code = UA Spec Grav) [facility]annATL[facility] AND [id number] 00:27:00 Test Item Value Reference Range Interpretation Comments UA Turbidity (test code = Clear (12/28/17 7:27 UA Turbidity) PM) [facility] [id number] 00:27:00 Test Item Value Reference Range Interpretation Comments UA Glucose (test code Negative (12/28/17 7:27 = UA Glucose) PM) [facility]annATL[facility] AND [id number] 00:27:00 Test Item Value Reference Range Interpretation Comments UA Protein (test code Negative (12/28/17 7:27 = UA Protein) PM) [facility] [id number] 00:27:00 Test Item Value Reference Range Interpretation Comments UA Bili (test code = Negative *NA*(12/28/17 UA Bili) 7:27 PM) [facility] [id number] 00:27:00 Test Item Value Reference Range Interpretation Comments UA Ketones (test code Negative *NA*(12/28/17 = UA Ketones) 7:27 PM) [facility] [id number] 00:27:00 Test Item Value Reference Range Interpretation Comments UA Leuk Est (test Negative (12/28/17 7:27 code = UA Leuk Est) PM) [facility] [id number] 00:27:00 Test Item Value Reference Range Interpretation Comments UA Nitrite (test code Negative (12/28/17 7:27 = UA Nitrite) PM) [facility] [id number] 00:27:00 Test Item Value Reference Range Interpretation Comments UA Urobilinogen (test code = UA 0.2 0.1-1.0 Urobilinogen) [facility] [id number] 00:27:00 Test Item Value Reference Range Interpretation Comments UA pH (test code = UA pH) 7.0 1 5.0-8.0 [facility] [id number] 00:27:00 Test Item Value Reference Range Interpretation Comments UA Color (test code = Yellow *NA*(12/28/17 UA Color) 7:27 PM) [facility] [id number] 00:27:00 Test Item Value Reference Range Interpretation Comments UA Bacteria (test code = None Seen (12/28/17 UA Bacteria) 7:27 PM) [facility] [id number] 00:27:00 Test Item Value Reference Range Interpretation Comments UA WBC (test code = UA None Seen (12/28/17 WBC) 7:27 PM) [facility] [id number] 00:27:00 Test Item Value Reference Range Interpretation Comments UA Sq Epi (test code = UA Sq Epi) Rare /LPF [facility] [id number] 00:27:00 Test Item Value Reference Range Interpretation Comments Micro? (test code = Performed (12/28/17 7:27 Micro?) PM) [facility] [id number] 00:27:00 Test Item Value Reference Range Interpretation Comments UA RBC (test None Seen See_Comment [Automated [place]] code = UA RBC) (12/28/17 7:27 The system which PM) generated this result transmitted ref erence range: <=2. The reference range was not used to int erpret this result as normal/abnormal . [facility]annCHEM [id number] 00:27:00 Test Item Value Reference Range Interpretation Comments Lactic Acid Lvl (test code = Lactic 1.3 0.5-2.2 Acid Lvl) [facility] WptwemzXHDPRO3966-04-17 00:27:00 Test Item Value Reference Range Interpretation Comments Trig (test code = Trig) 89 [facility] [id number] 00:27:00 Test Item Value Reference Range Interpretation Comments Chol (test code = Chol) 150 [facility] [id number] 00:27:00 Test Item Value Reference Range Interpretation Comments HDL (test code = HDL) 33 [facility] [id number] 00:27:00 Test Item Value Reference Range Interpretation Comments CHD Risk (test code = CHD Risk) 4.55 1 4.00-7.30 [facility] IiizmtdDOZYRI8112-30-03 00:27:00 Test Item Value Reference Range Interpretation Comments LDL (Calculated) (test code = LDL 99 (Calculated)) [facility] DbilgxrHUMYXT6180-93-01 00:27:00 Test Item Value Reference Range Interpretation Comments VLDL (test code = VLDL) 18 1 [facility] [id number] 00:27:00 Test Item Value Reference Range Interpretation Comments Hgb A1C (test code = Hgb A1C) 6.0 [facility] [id number] 00:27:00 Test Item Value Reference Range Interpretation Comments UA Blood (test code = Negative (12/28/17 7:27 UA Blood) PM) [facility] [id number] 00:27:00 Test Item Value Reference Range Interpretation Comments UA Spec Grav (test *NA*(12/28/17 7:27 PM) code = UA Spec Grav) [facility] [id number] 00:27:00 Test Item Value Reference Range Interpretation Comments UA Turbidity (test code = Clear (12/28/17 7:27 UA Turbidity) PM) [facility] [id number] 00:27:00 Test Item Value Reference Range Interpretation Comments UA Glucose (test code Negative (12/28/17 7:27 = UA Glucose) PM) [facility] [id number] 00:27:00 Test Item Value Reference Range Interpretation Comments UA Protein (test code Negative (12/28/17 7:27 = UA Protein) PM) [facility] [id number] 00:27:00 Test Item Value Reference Range Interpretation Comments UA Bili (test code = Negative *NA*(12/28/17 UA Bili) 7:27 PM) [facility] [id number] 00:27:00 Test Item Value Reference Range Interpretation Comments UA Ketones (test code Negative *NA*(12/28/17 = UA Ketones) 7:27 PM) [facility] AND [id number] 00:27:00 Test Item Value Reference Range Interpretation Comments UA Leuk Est (test Negative (12/28/17 7:27 code = UA Leuk Est) PM) [facility] AND [id number] 00:27:00 Test Item Value Reference Range Interpretation Comments UA Nitrite (test code Negative (12/28/17 7:27 = UA Nitrite) PM) [facility] AND [id number] 00:27:00 Test Item Value Reference Range Interpretation Comments UA Urobilinogen (test code = UA 0.2 0.1-1.0 Urobilinogen) [facility] AND [id number] 00:27:00 Test Item Value Reference Range Interpretation Comments UA pH (test code = UA pH) 7.0 1 5.0-8.0 [facility] AND [id number] 00:27:00 Test Item Value Reference Range Interpretation Comments UA Color (test code = Yellow *NA*(12/28/17 UA Color) 7:27 PM) [facility] [id number] 00:27:00 Test Item Value Reference Range Interpretation Comments UA Bacteria (test code = None Seen (12/28/17 UA Bacteria) 7:27 PM) [facility] AND [id number] 00:27:00 Test Item Value Reference Range Interpretation Comments UA WBC (test code = UA None Seen (12/28/17 WBC) 7:27 PM) [facility] [id number] 00:27:00 Test Item Value Reference Range Interpretation Comments UA Sq Epi (test code = UA Sq Epi) Rare /LPF [facility] AND [id number] 00:27:00 Test Item Value Reference Range Interpretation Comments Micro? (test code = Performed (12/28/17 7:27 Micro?) PM) [facility] AND [id number] 00:27:00 Test Item Value Reference Range Interpretation Comments UA RBC (test None Seen See_Comment [Automated [place]] code = UA RBC) (12/28/17 7:27 The system which PM) generated this result transmitted ref erence range: <=2. The reference range was not used to int erpret this result as normal/abnormal . [facility] W[facility] [id number] 18:56:00 Test Item Value Reference Range Interpretation Comments eGFR (test code = eGFR) [address] [facility] [place], TxCE2 [employer] [id number] 18:56:00 Test Item Value Reference Range Interpretation Comments POC Creatinine (test code = POC 0.7 0.5-1.4 Creatinine) [facility]2018-10-23 18:56:00 Test Item Value Reference Range Interpretation Comments eGFR (test code = eGFR) 69 [facility] HospitalBahouiATRI[facility] [id number] 18:56:00 Test Item Value Reference Range Interpretation Comments POC Creatinine (test code = POC 0.7 0.5-1.4 Creatinine) [facility]2018-10-23 18:56:00 Test Item Value Reference Range Interpretation Comments eGFR (test code = eGFR) 69 [facility] W[facility] [id number] 18:56:00 Test Item Value Reference Range Interpretation Comments POC Creatinine (test code = POC 0.7 0.5-1.4 Creatinine) [facility]2018-10-23 18:56:00 Test Item Value Reference Range Interpretation Comments eGFR (test code = eGFR) [address] [facility], TxCE2 [employer] [id number] 18:56:00 Test Item Value Reference Range Interpretation Comments POC Creatinine (test code = POC 0.7 0.5-1.4 Creatinine) [facility]2018-10-23 18:56:00 Test Item Value Reference Range Interpretation Comments eGFR (test code = eGFR) 69 [facility]2018-10-23 18:56:00 Test Item Value Reference Range Interpretation Comments POC Creatinine (test code = POC 0.7 0.5-1.4 Creatinine) [facility]2018-10-23 18:56:00 Test Item Value Reference Range Interpretation Comments eGFR (test code = eGFR) 69 [facility]2018-10-23 18:56:00 Test Item Value Reference Range Interpretation Comments POC Creatinine (test code = POC 0.7 0.5-1.4 Creatinine) [facility]2018-10-23 18:34:00 Test Item Value Reference Range Interpretation Comments Total CK (test code = Total CK) 105 12-191 [facility]2018-10-23 18:34:00 Test Item Value Reference Range Interpretation Comments Globulin (test code = Globulin) 5.2 2.7-4.2 [facility]2018-10-23 18:34:00 Test Item Value Reference Range Interpretation Comments A/G Ratio (test code = A/G Ratio) 0.8 1 0.7-1.6 [facility]2018-10-23 18:34:00 Test Item Value Reference Range Interpretation Comments Albumin Lvl (test code = Albumin Lvl) 4.4 3.5-5.0 [facility]2018-10-23 18:34:00 Test Item Value Reference Range Interpretation Comments Total Protein (test code = Total 9.6 6.4-8.4 Protein) [facility]2018-10-23 18:34:00 Test Item Value Reference Range Interpretation Comments Bili Direct (test code 0.1 See_Comment [Aut omated message] The = Bili Direct) system which generated this result tra nsmitted reference range : <=0.3. The reference r bret was not used to int erpret this result as mateo l/abnormal. [facility]2018-10-23 18:34:00 Test Item Value Reference Range Interpretation Comments Bili Total (test code = Bili Total) 0.6 0.2-1.3 [facility]2018-10-23 18:34:00 Test Item Value Reference Range Interpretation Comments Bili Indirect (test 0.5 See_Comment [Automa jw message] The code = Bili Indirect) system which generated this result tra nsmitted reference range : <=1.0. The reference r bret was not used to int erpret this result as normal/abnormal . [facility] [place], TxCE2 [employer] [id number] 18:34:00 Test Item Value Reference Range Interpretation Comments AST (test code = AST) 23 See_Comment [Auto mated message] The system which ge nerated this result transmit jw reference range : <=37. The reference range was not used to interpr et this result as mateo l/abnormal. [facility]2018-10-23 18:34:00 Test Item Value Reference Range Interpretation Comments ALT (test code = ALT) 23 See_Comment [Auto mated message] The system which ge nerated this result transmit jw reference range : <=65. The reference range was not used to interpr et this result as mateo l/abnormal. [facility] [place], TxCE2 [employer] [id number] 18:34:00 Test Item Value Reference Range Interpretation Comments Alk Phos (test code = Alk Phos) 161 39-136 [facility] W[facility] [id number] 18:34:00 Test Item Value Reference Range Interpretation Comments Lipase Lvl (test code = Lipase Lvl) 202 73-[address] [facility] [place], TxCE2 [employer] [id number] 18:34:00 Test Item Value Reference Range Interpretation Comments Lactic Acid WB (test code = Lactic Acid 2.5 0.5-2.2 WB) [facility] HospitalSacioudLVPONBYMBERU4224-42-26 18:34:00 Test Item Value Reference Range Interpretation Comments AGAP (test code = AGAP) 17.3 10.0-20.0 [facility] HospitalXksmchmHDDIHINRHLJU6443-13-28 18:34:00 Test Item Value Reference Range Interpretation Comments Calcium Lvl (test code = Calcium Lvl) 9.9 8.5-10.5 [facility] Hospital[id number] 18:34:00 Test Item Value Reference Range Interpretation Comments Chloride Lvl (test code = Chloride Lvl) 93 95-109 [facility] HospitalCmfnjfsASQOURZTUPEB2767-57-77 18:34:00 Test Item Value Reference Range Interpretation Comments CO2 (test code = CO2) 26 24-32 [facility] HospitalLshsrpiAIKWMWMRRZAU4009-30-94 18:34:00 Test Item Value Reference Range Interpretation Comments Sodium Lvl (test code = Sodium Lvl) 132 135-145 [facility] HospitalLghqqrySNNROCSHPIXS6414-51-03 18:34:00 Test Item Value Reference Range Interpretation Comments Potassium Lvl (test code = Potassium 4.3 3.5-5.1 Lvl) [facility] HospitalOqsimwoDNJVYQPCCTLY0219-27-86 18:34:00 Test Item Value Reference Range Interpretation Comments BUN (test code = BUN) 18 7-22 [facility] Hospital[id number] 18:34:00 Test Item Value Reference Range Interpretation Comments Glucose Lvl (test code = Glucose Lvl) 133 70-99 [facility] HospitalBotlbzxQVQYOZEXBDLX1118-15-71 18:34:00 Test Item Value Reference Range Interpretation Comments Creatinine Lvl (test code = Creatinine 0.99 0.50-1.40 Lvl) [facility] CenterZyhpiolXIYFKMVVSC9527-87-41 18:34:00 Test Item Value Reference Range Interpretation Comments Hct (test code = Hct) 40.9 42.0-54.0 [facility] CenterTzuyaoyLQWFGXZISW5325-48-57 18:34:00 Test Item Value Reference Range Interpretation Comments WBC (test code = WBC) 13.5 3.7-10.4 [facility] CenterAasebetIFZKYIRSUD9845-21-32 18:34:00 Test Item Value Reference Range Interpretation Comments RBC (test code = RBC) 4.91 4.70-6.10 [facility] CenterHafxycvUVKLBSEGNK7198-62-09 18:34:00 Test Item Value Reference Range Interpretation Comments Hgb (test code = Hgb) 13.5 14.0-18.0 [facility] CenterKqshopnCUWNPSXNZO0088-45-20 18:34:00 Test Item Value Reference Range Interpretation Comments MCV (test code = MCV) 83.4 80.0-94.0 [facility] CenterEwpevebOFNYJDBNDI8293-87-80 18:34:00 Test Item Value Reference Range Interpretation Comments MCH (test code = MCH) 27.5 pg 27.0-31.0 [facility] CenterZdvosauWHLKLHWJJR2107-58-62 18:34:00 Test Item Value Reference Range Interpretation Comments RDW (test code = RDW) 18.2 11.5-14.5 [facility] CenterSscbzzkZDVVKNTZGU4441-49-71 18:34:00 Test Item Value Reference Range Interpretation Comments MCHC (test code = MCHC) 33.0 32.0-36.0 [facility] CenterXpqffnjEPHYMWBDCA6168-88-43 18:34:00 Test Item Value Reference Range Interpretation Comments Platelet (test code = Platelet) 216 133-450 [facility] CenterAopbygyUDHMHZMWNX1818-15-85 18:34:00 Test Item Value Reference Range Interpretation Comments MPV (test code = MPV) 8.5 7.4-10.4 [place] [address]-10-23 18:34:00 Test Item Value Reference Range Interpretation Comments PTT (test code = PTT) 31.5 s 22.9-35.8 [facility] CenterGlagnjtECADYTSECV6339-40-89 18:34:00 Test Item Value Reference Range Interpretation Comments PT (test code = PT) 13.2 s 12.0-14.7 [facility] CenterMqoobefJOWSZWYTQT5001-44-33 18:34:00 Test Item Value Reference Range Interpretation Comments INR (test code = INR) 1.00 1 0.85-1.17 [facility] CenterFifbnjqAQARVJMOCL0227-87-85 18:34:00 Test Item Value Reference Range Interpretation Comments Basophils # (test code 0.2 See_Comment [Aut omated message] The = Basophils #) system which generated this result tra nsmitted reference range : <=0.2. The reference r bret was not used to int erpret this result as normal/abnormal . [facility] CenterVsuffpaYILHPLPRJA3368-27-00 18:34:00 Test Item Value Reference Range Interpretation Comments Lymphocytes (test code = Lymphocytes) 11.4 20.0-40.0 [facility] CenterNjrtgflLICDHFTBJQ2359-74-08 18:34:00 Test Item Value Reference Range Interpretation Comments Monocytes (test code = Monocytes) 4.4 2.0-12.0 [facility] CenterVqfcgddQHYZDANYYK0627-93-90 18:34:00 Test Item Value Reference Range Interpretation Comments Neutrophils # (test code = Neutrophils 11.1 1.5-8.1 #) [facility] CenterXdmcrtpJHBURJJOVT2767-03-27 18:34:00 Test Item Value Reference Range Interpretation Comments Lymphocytes # (test code = Lymphocytes 1.5 1.0-5.5 #) [place] [id number] 18:34:00 Test Item Value Reference Range Interpretation Comments Eosinophils # (test code 0.1 See_Comment [A utomated message] The = Eosinophils #) system whic h generated this result tra nsmitted reference range : <=0.5. The reference r bret was not used to int erpret this result as normal/abnormal . [facility] CenterOfeioxbXPEKMMALTB1735-26-05 18:34:00 Test Item Value Reference Range Interpretation Comments Monocytes # (test code 0.6 See_Comment [Aut omated message] The = Monocytes #) system which generated this result tra nsmitted reference range : <=0.8. The reference r bret was not used to int erpret this result as normal/abnormal . [facility] CenterDwqdsltZOPWUEMNQA7408-72-32 18:34:00 Test Item Value Reference Range Interpretation Comments Eosinophils (test code = 0.9 See_Comment [A utomated message] The Eosinophils) system which ge nerated this result tra nsmitted reference range : <=4.0. The reference r bret was not used to int erpret this result as normal/abnormal . [facility] CenterUljtlidMOTWITJRAB4428-33-28 18:34:00 Test Item Value Reference Range Interpretation Comments Basophils (test code = 1.5 See_Comment [Aut omated message] The Basophils) system which ge nerated this result tra nsmitted reference range : <=1.0. The reference r bret was not used to int erpret this result as normal/abnormal . [facility] CenterJnmmulvMVCGQTAXYS6681-92-99 18:34:00 Test Item Value Reference Range Interpretation Comments Segs (test code = Segs) 81.8 45.0-75.[address] [facility] [place], TxCARDIAC [id number] 18:34:00 Test Item Value Reference Range Interpretation Comments Total CK (test code = Total CK) 105 12-191 [facility] [id number] 18:34:00 Test Item Value Reference Range Interpretation Comments Globulin (test code = Globulin) 5.2 2.7-4.[address] [facility] [place], TxCE2 [employer] [id number] 18:34:00 Test Item Value Reference Range Interpretation Comments A/G Ratio (test code = A/G Ratio) 0.8 1 0.7-1.[address] [facility] [place], TxCE2 [employer] [id number] 18:34:00 Test Item Value Reference Range Interpretation Comments Albumin Lvl (test code = Albumin Lvl) 4.4 3.5-5.0 [place] [id number] 18:34:00 Test Item Value Reference Range Interpretation Comments Total Protein (test code = Total 9.6 6.4-8.4 Protein) [place] [id number] 18:34:00 Test Item Value Reference Range Interpretation Comments Bili Direct (test code 0.1 See_Comment [Aut omated message] The = Bili Direct) system which generated this result tra nsmitted reference range : <=0.3. The reference r bret was not used to int erpret this result as mateo l/abnormal. [facility]2018-10-23 18:34:00 Test Item Value Reference Range Interpretation Comments Bili Total (test code = Bili Total) 0.6 0.2-1.3 [place] [id number] 18:34:00 Test Item Value Reference Range Interpretation Comments Bili Indirect (test 0.5 See_Comment [Automa jw message] The code = Bili Indirect) system which generated this result tra nsmitted reference range : <=1.0. The reference r bret was not used to int erpret this result as normal/abnormal . [facility]2018-10-23 18:34:00 Test Item Value Reference Range Interpretation Comments AST (test code = AST) 23 See_Comment [Auto mated message] The system which ge nerated this result transmit jw reference range : <=37. The reference range was not used to interpr et this result as mateo l/abnormal. [facility]2018-10-23 18:34:00 Test Item Value Reference Range Interpretation Comments ALT (test code = ALT) 23 See_Comment [Auto mated message] The system which ge nerated this result transmit jw reference range : <=65. The reference range was not used to interpr et this result as mateo l/abnormal. [place] [id number] 18:34:00 Test Item Value Reference Range Interpretation Comments Alk Phos (test code = Alk Phos) 161 39-136 [place] 664258-10-23 18:34:00 Test Item Value Reference Range Interpretation Comments Lipase Lvl (test code = Lipase Lvl) 202 73-[address] [facility] [place], TxCHEM [id number] 18:34:00 Test Item Value Reference Range Interpretation Comments Lactic Acid WB (test code = Lactic Acid 2.5 0.5-2.2 WB) [facility] HospitalCholfxjTSABMNAIDOIQ6619-14-88 18:34:00 Test Item Value Reference Range Interpretation Comments AGAP (test code = AGAP) 17.3 10.0-20.0 [facility] HospitalUeuocbgJHJLSZKQHYVC6268-12-19 18:34:00 Test Item Value Reference Range Interpretation Comments Calcium Lvl (test code = Calcium Lvl) 9.9 8.5-10.5 [facility] HospitalLjvgjxtPUDODGJHOVOQ6798-46-61 18:34:00 Test Item Value Reference Range Interpretation Comments Chloride Lvl (test code = Chloride Lvl) 93 95-109 [facility] HospitalXfalbrbOVSHGFSGVQMB3483-96-29 18:34:00 Test Item Value Reference Range Interpretation Comments CO2 (test code = CO2) 26 24-32 [facility] HospitalRayvxemNDADFHNJZLNS3660-53-00 18:34:00 Test Item Value Reference Range Interpretation Comments Sodium Lvl (test code = Sodium Lvl) 132 135-145 [facility] HospitalHbyyckkKMZEIZEGINZF0558-97-66 18:34:00 Test Item Value Reference Range Interpretation Comments Potassium Lvl (test code = Potassium 4.3 3.5-5.1 Lvl) [facility] HospitalVefxfimWQRVFYYFGEPF1931-00-88 18:34:00 Test Item Value Reference Range Interpretation Comments BUN (test code = BUN) 18 7-22 [facility] HospitalIxbwblmYQKCQHYOKRFQ8633-20-13 18:34:00 Test Item Value Reference Range Interpretation Comments Glucose Lvl (test code = Glucose Lvl) 133 70-99 [facility] HospitalUcpolpuSBPSBALFSLJK4962-19-79 18:34:00 Test Item Value Reference Range Interpretation Comments Creatinine Lvl (test code = Creatinine 0.99 0.50-1.40 Lvl) [facility] CenterYpggotvMMDLMWTLKR8877-80-41 18:34:00 Test Item Value Reference Range Interpretation Comments Hct (test code = Hct) 40.9 42.0-54.0 [facility] CenterWalkygqFODVOJPEMQ2530-86-79 18:34:00 Test Item Value Reference Range Interpretation Comments WBC (test code = WBC) 13.5 3.7-10.4 [facility] CenterIblnlxzMZRPEMSWGI3409-61-17 18:34:00 Test Item Value Reference Range Interpretation Comments RBC (test code = RBC) 4.91 4.70-6.10 [facility] CenterSxoqbmoBAOFZOMWND5222-25-70 18:34:00 Test Item Value Reference Range Interpretation Comments Hgb (test code = Hgb) 13.5 14.0-18.0 [facility] CenterChxcqffOTNTBWEBDQ5336-60-18 18:34:00 Test Item Value Reference Range Interpretation Comments MCV (test code = MCV) 83.4 80.0-94.0 [facility] CenterBctghayMEHICYBDPE1175-27-33 18:34:00 Test Item Value Reference Range Interpretation Comments MCH (test code = MCH) 27.5 pg 27.0-31.0 [facility] CenterMfaextdSACIRUMANZ2321-34-19 18:34:00 Test Item Value Reference Range Interpretation Comments RDW (test code = RDW) 18.2 11.5-14.5 [facility] CenterIcfntbsRNPMHDPQWM0309-79-49 18:34:00 Test Item Value Reference Range Interpretation Comments MCHC (test code = MCHC) 33.0 32.0-36.0 [facility] CenterQwdvpekSQYOGUDVGC0024-86-90 18:34:00 Test Item Value Reference Range Interpretation Comments Platelet (test code = Platelet) 216 133-450 [facility] CenterJcgxlakYZVOMINVIM1446-31-71 18:34:00 Test Item Value Reference Range Interpretation Comments MPV (test code = MPV) 8.5 7.4-10.4 [facility] CenterLedrkwtOJVWBUZAIT4447-04-39 18:34:00 Test Item Value Reference Range Interpretation Comments PTT (test code = PTT) 31.5 s 22.9-35.8 [facility] CenterLqdgbzrMSZKZSOVBP0680-70-80 18:34:00 Test Item Value Reference Range Interpretation Comments PT (test code = PT) 13.2 s 12.0-14.7 [facility] CenterXbzjdibNCXOQAXLQP0974-80-90 18:34:00 Test Item Value Reference Range Interpretation Comments INR (test code = INR) 1.00 1 0.85-1.17 [facility] CenterDpbaqpoFXVJZNNOZL8048-08-98 18:34:00 Test Item Value Reference Range Interpretation Comments Basophils # (test code 0.2 See_Comment [Aut omated message] The = Basophils #) system which generated this result tra nsmitted reference range : <=0.2. The reference r bret was not used to int erpret this result as normal/abnormal . [facility] CenterJantohsSVSJALNGAQ3734-43-64 18:34:00 Test Item Value Reference Range Interpretation Comments Lymphocytes (test code = Lymphocytes) 11.4 20.0-40.0 [facility] CenterFtetqqaVCBCWEXDNE9707-73-57 18:34:00 Test Item Value Reference Range Interpretation Comments Monocytes (test code = Monocytes) 4.4 2.0-12.0 [place] [address]-10-23 18:34:00 Test Item Value Reference Range Interpretation Comments Neutrophils # (test code = Neutrophils 11.1 1.5-8.1 #) [facility] CenterJqcdvkzRWXMAMCBKC1689-71-71 18:34:00 Test Item Value Reference Range Interpretation Comments Lymphocytes # (test code = Lymphocytes 1.5 1.0-5.5 #) [facility] CenterNfzluazOFEUKDZZLC1256-66-45 18:34:00 Test Item Value Reference Range Interpretation Comments Eosinophils # (test code 0.1 See_Comment [A utomated message] The = Eosinophils #) system wh h generated this result tra nsmitted reference range : <=0.5. The reference r bret was not used to int erpret this result as normal/abnormal . [facility] CenterTlpkirkWYQBXOTHAB9592-08-26 18:34:00 Test Item Value Reference Range Interpretation Comments Monocytes # (test code 0.6 See_Comment [Aut omated message] The = Monocytes #) system which generated this result tra nsmitted reference range : <=0.8. The reference r bret was not used to int erpret this result as normal/abnormal . [facility] CenterWdzhjeaQQZXRSGXQR4936-90-44 18:34:00 Test Item Value Reference Range Interpretation Comments Eosinophils (test code = 0.9 See_Comment [A utomated message] The Eosinophils) system which ge nerated this result tra nsmitted reference range : <=4.0. The reference r bret was not used to int erpret this result as normal/abnormal . [place] [address]-10-23 18:34:00 Test Item Value Reference Range Interpretation Comments Basophils (test code = 1.5 See_Comment [Aut omated message] The Basophils) system which ge nerated this result tra nsmitted reference range : <=1.0. The reference r bret was not used to int erpret this result as normal/abnormal . [facility] [place], TxLdioehqZKLREBMIJG0950-58-19 18:34:00 Test Item Value Reference Range Interpretation Comments Segs (test code = Segs) 81.8 45.0-75.[address] [facility] [place], TxCARDIAC RJDEPTA5567-38-39 18:34:00 Test Item Value Reference Range Interpretation Comments Total CK (test code = Total CK) 105 12-191 [facility] [id number] 18:34:00 Test Item Value Reference Range Interpretation Comments Globulin (test code = Globulin) 5.2 2.7-4.2 [facility] [id number] 18:34:00 Test Item Value Reference Range Interpretation Comments A/G Ratio (test code = A/G Ratio) 0.8 1 0.7-1.6 [facility]2018-10-23 18:34:00 Test Item Value Reference Range Interpretation Comments Albumin Lvl (test code = Albumin Lvl) 4.4 3.5-5.0 [facility]2018-10-23 18:34:00 Test Item Value Reference Range Interpretation Comments Total Protein (test code = Total 9.6 6.4-8.4 Protein) [facility]2018-10-23 18:34:00 Test Item Value Reference Range Interpretation Comments Bili Direct (test code 0.1 See_Comment [Aut omated message] The = Bili Direct) system which generated this result tra nsmitted reference range : <=0.3. The reference r bret was not used to int erpret this result as mateo l/abnormal. [facility]2018-10-23 18:34:00 Test Item Value Reference Range Interpretation Comments Bili Total (test code = Bili Total) 0.6 0.2-1.3 [facility]2018-10-23 18:34:00 Test Item Value Reference Range Interpretation Comments Bili Indirect (test 0.5 See_Comment [Automa jw message] The code = Bili Indirect) system which generated this result tra nsmitted reference range : <=1.0. The reference r bret was not used to int erpret this result as normal/abnormal . [facility]2018-10-23 18:34:00 Test Item Value Reference Range Interpretation Comments AST (test code = AST) 23 See_Comment [Auto mated message] The system which ge nerated this result transmit jw reference range : <=37. The reference range was not used to interpr et this result as mateo l/abnormal. [facility] [id number] 18:34:00 Test Item Value Reference Range Interpretation Comments ALT (test code = ALT) 23 See_Comment [Auto mated message] The system which ge nerated this result transmit jw reference range : <=65. The reference range was not used to interpr et this result as mateo l/abnormal. [facility] [id number] 18:34:00 Test Item Value Reference Range Interpretation Comments Alk Phos (test code = Alk Phos) 161 39-136 [facility] [id number] 18:34:00 Test Item Value Reference Range Interpretation Comments Lipase Lvl (test code = Lipase Lvl) 202 73-393 [facility] [id number] 18:34:00 Test Item Value Reference Range Interpretation Comments Lactic Acid WB (test code = Lactic Acid 2.5 0.5-2.2 WB) [facility]JunelbsXOUMHGJNZWJN0532-24-36 18:34:00 Test Item Value Reference Range Interpretation Comments AGAP (test code = AGAP) 17.3 10.0-20.0 [facility] HospitalXftznwlTKBHOJKJTTPZ3294-56-95 18:34:00 Test Item Value Reference Range Interpretation Comments Calcium Lvl (test code = Calcium Lvl) 9.9 8.5-10.5 [facility] HospitalKsztielVQCHCUXYFWAC9583-45-42 18:34:00 Test Item Value Reference Range Interpretation Comments Chloride Lvl (test code = Chloride Lvl) 93 95-109 [facility] HospitalUzqrwkhLUCDVOACSIJN6468-11-76 18:34:00 Test Item Value Reference Range Interpretation Comments CO2 (test code = CO2) 26 24-32 [facility] HospitalJgntxuoOKRYGPMIHQTY8942-37-08 18:34:00 Test Item Value Reference Range Interpretation Comments Sodium Lvl (test code = Sodium Lvl) 132 135-145 [facility] HospitalXczezxrCPPQCAUCUQEI5324-34-66 18:34:00 Test Item Value Reference Range Interpretation Comments Potassium Lvl (test code = Potassium 4.3 3.5-5.1 Lvl) [facility] HospitalArhbanzPMBHTFFXUCIL7801-13-87 18:34:00 Test Item Value Reference Range Interpretation Comments BUN (test code = BUN) 18 7-22 [facility] HospitalAigumwsMFFQBELATKNR8115-13-05 18:34:00 Test Item Value Reference Range Interpretation Comments Glucose Lvl (test code = Glucose Lvl) 133 70-99 [facility] HospitalNykcndeCDUVCRACFOVP2704-25-43 18:34:00 Test Item Value Reference Range Interpretation Comments Creatinine Lvl (test code = Creatinine 0.99 0.50-1.40 Lvl) [facility]EyybdhaZXUBEDCECD9956-84-95 18:34:00 Test Item Value Reference Range Interpretation Comments Hct (test code = Hct) 40.9 42.0-54.0 [facility] CenterDmybvotJTBSNYKQJM3837-36-38 18:34:00 Test Item Value Reference Range Interpretation Comments WBC (test code = WBC) 13.5 3.7-10.4 [facility] CenterNksdxuyOMCRGZOTLI2378-96-50 18:34:00 Test Item Value Reference Range Interpretation Comments RBC (test code = RBC) 4.91 4.70-6.10 [facility] CenterPkhuuhkSMZUAJKCJS0080-21-25 18:34:00 Test Item Value Reference Range Interpretation Comments Hgb (test code = Hgb) 13.5 14.0-18.0 [facility] CenterYlosbcaXKLSEVRNVH1168-15-66 18:34:00 Test Item Value Reference Range Interpretation Comments MCV (test code = MCV) 83.4 80.0-94.0 [facility] CenterUqtiamnZQTVTWWWIP7174-17-22 18:34:00 Test Item Value Reference Range Interpretation Comments MCH (test code = MCH) 27.5 pg 27.0-31.0 [facility] CenterOwonijpPDQTTFRWUQ9220-71-80 18:34:00 Test Item Value Reference Range Interpretation Comments RDW (test code = RDW) 18.2 11.5-14.5 [facility] CenterNepaxwfMLUHHHBFUE4123-92-43 18:34:00 Test Item Value Reference Range Interpretation Comments MCHC (test code = MCHC) 33.0 32.0-36.0 [facility] CenterRjuyzdxMHJEBKGGJD2031-84-12 18:34:00 Test Item Value Reference Range Interpretation Comments Platelet (test code = Platelet) 216 133-450 [facility] CenterJcfcduiBRKUYZKAEX5821-85-41 18:34:00 Test Item Value Reference Range Interpretation Comments MPV (test code = MPV) 8.5 7.4-10.4 [facility] CenterEyauvbfUQOLKEJCPY6318-80-03 18:34:00 Test Item Value Reference Range Interpretation Comments PTT (test code = PTT) 31.5 s 22.9-35.8 [facility] CenterWljgovkUJSDXPDROP2075-82-52 18:34:00 Test Item Value Reference Range Interpretation Comments PT (test code = PT) 13.2 s 12.0-14.7 [facility] CenterQmmeudxIGUIBQKESH0441-55-79 18:34:00 Test Item Value Reference Range Interpretation Comments INR (test code = INR) 1.00 1 0.85-1.17 [facility] CenterNkstkjlJSGRZCJSSH6399-90-58 18:34:00 Test Item Value Reference Range Interpretation Comments Basophils # (test code 0.2 See_Comment [Aut omated message] The = Basophils #) system which generated this result tra nsmitted reference range : <=0.2. The reference r bret was not used to int erpret this result as normal/abnormal . [facility] CenterYtfofxmXKZBDUMTEW8531-09-15 18:34:00 Test Item Value Reference Range Interpretation Comments Lymphocytes (test code = Lymphocytes) 11.4 20.0-40.0 [facility] CenterKesvfxzOMPZOAZMZT1489-47-50 18:34:00 Test Item Value Reference Range Interpretation Comments Monocytes (test code = Monocytes) 4.4 2.0-12.0 [facility] CenterGoujkcbUZIFGUNVXD7254-41-12 18:34:00 Test Item Value Reference Range Interpretation Comments Neutrophils # (test code = Neutrophils 11.1 1.5-8.1 #) [facility] CenterOqbnwfzVOVQJZCYVR8124-03-84 18:34:00 Test Item Value Reference Range Interpretation Comments Lymphocytes # (test code = Lymphocytes 1.5 1.0-5.5 #) [facility] CenterJeshhfzNOVNMOVBUY0458-23-52 18:34:00 Test Item Value Reference Range Interpretation Comments Eosinophils # (test code 0.1 See_Comment [A utomated message] The = Eosinophils #) system whic h generated this result tra nsmitted reference range : <=0.5. The reference r bret was not used to int erpret this result as normal/abnormal . [facility] CenterMpqdvwzRGFZAOMOYE5464-86-26 18:34:00 Test Item Value Reference Range Interpretation Comments Monocytes # (test code 0.6 See_Comment [Aut omated message] The = Monocytes #) system which generated this result tra nsmitted reference range : <=0.8. The reference r bret was not used to int erpret this result as normal/abnormal . [facility]egg[facility]GITIUUXBDR7767[facility] 18:34:00 Test Item Value Reference Range Interpretation Comments Eosinophils (test code = 0.9 See_Comment [A utomated message] The Eosinophils) system which ge nerated this result tra nsmitted reference range : <=4.0. The reference r bret was not used to int erpret this result as normal/abnormal . [facility] CenterGzktaclJWUBYESWWL4473-00-67 18:34:00 Test Item Value Reference Range Interpretation Comments Basophils (test code = 1.5 See_Comment [Aut omated message] The Basophils) system which ge nerated this result tra nsmitted reference range : <=1.0. The reference r bret was not used to int erpret this result as normal/abnormal . [facility] HospitalZesfufbKYQQMOFOQR7306-37-90 18:34:00 Test Item Value Reference Range Interpretation Comments Segs (test code = Segs) 81.8 45.0-75.[address] [facility], TxCARDIAC QCPRDAQ4220-11-90 18:34:00 Test Item Value Reference Range Interpretation Comments Total CK (test code = Total CK) 105 12-[address] [facility], TxCE2 [employer] [id number] 18:34:00 Test Item Value Reference Range Interpretation Comments Globulin (test code = Globulin) 5.2 2.7-4.2 [facility] [id number] 18:34:00 Test Item Value Reference Range Interpretation Comments A/G Ratio (test code = A/G Ratio) 0.8 1 0.7-1.6 [facility] [id number] 18:34:00 Test Item Value Reference Range Interpretation Comments Albumin Lvl (test code = Albumin Lvl) 4.4 3.5-5.[address] [facility], TxCE2 [employer] [id number] 18:34:00 Test Item Value Reference Range Interpretation Comments Total Protein (test code = Total 9.6 6.4-8.4 Protein) [facility], TxCE2 [employer] [id number] 18:34:00 Test Item Value Reference Range Interpretation Comments Bili Direct (test code 0.1 See_Comment [Aut omated message] The = Bili Direct) system which generated this result tra nsmitted reference range : <=0.3. The reference r bret was not used to int erpret this result as mateo l/abnormal. [facility]2018-10-23 18:34:00 Test Item Value Reference Range Interpretation Comments Bili Total (test code = Bili Total) 0.6 0.2-1.3 [facility]2018-10-23 18:34:00 Test Item Value Reference Range Interpretation Comments Bili Indirect (test 0.5 See_Comment [Automa jw message] The code = Bili Indirect) system which generated this result tra nsmitted reference range : <=1.0. The reference r bret was not used to int erpret this result as normal/abnormal . [facility]2018-10-23 18:34:00 Test Item Value Reference Range Interpretation Comments AST (test code = AST) 23 See_Comment [Auto mated message] The system which ge nerated this result transmit jw reference range : <=37. The reference range was not used to interpr et this result as mateo l/abnormal. [facility]2018-10-23 18:34:00 Test Item Value Reference Range Interpretation Comments ALT (test code = ALT) 23 See_Comment [Auto mated message] The system which ge nerated this result transmit jw reference range : <=65. The reference range was not used to interpr et this result as mateo l/abnormal. [facility]2018-10-23 18:34:00 Test Item Value Reference Range Interpretation Comments Alk Phos (test code = Alk Phos) 161 39-[address] [facility], TxCE2 [employer] [id number] 18:34:00 Test Item Value Reference Range Interpretation Comments Lipase Lvl (test code = Lipase Lvl) 202 73-393 [facility] [id number] 18:34:00 Test Item Value Reference Range Interpretation Comments Lactic Acid WB (test code = Lactic Acid 2.5 0.5-2.2 WB) [facility]SnliuxgEVQRJPNPVIBH5021-55-92 18:34:00 Test Item Value Reference Range Interpretation Comments AGAP (test code = AGAP) 17.3 10.0-20.0 [place] [address]-10-23 18:34:00 Test Item Value Reference Range Interpretation Comments Calcium Lvl (test code = Calcium Lvl) 9.9 8.5-10.5 [facility] HospitalKnyvxanAPKYXOJNCBQE4147-81-33 18:34:00 Test Item Value Reference Range Interpretation Comments Chloride Lvl (test code = Chloride Lvl) 93 95-109 [facility] HospitalMpjjqcjFLBVRHRYURJT7863-86-11 18:34:00 Test Item Value Reference Range Interpretation Comments CO2 (test code = CO2) 26 24-32 [facility] HospitalHqykapyNLDEYLMXCWIV4239-09-91 18:34:00 Test Item Value Reference Range Interpretation Comments Sodium Lvl (test code = Sodium Lvl) 132 135-145 [facility] HospitalSnpugbbRSRSXABLUOTH1747-10-01 18:34:00 Test Item Value Reference Range Interpretation Comments Potassium Lvl (test code = Potassium 4.3 3.5-5.1 Lvl) [facility] HospitalHruxtxkVQJAKTQDXCZX9962-57-11 18:34:00 Test Item Value Reference Range Interpretation Comments BUN (test code = BUN) 18 7-22 [facility] HospitalMssqxjsGJWBIJFJYJJX4778-02-00 18:34:00 Test Item Value Reference Range Interpretation Comments Glucose Lvl (test code = Glucose Lvl) 133 70-99 [facility] HospitalBpxrfgpNZOLCIPFVKBK4312-33-58 18:34:00 Test Item Value Reference Range Interpretation Comments Creatinine Lvl (test code = Creatinine 0.99 0.50-1.40 Lvl) [facility] CenterAufbrjeSBFBWGSNBW5073-88-48 18:34:00 Test Item Value Reference Range Interpretation Comments Hct (test code = Hct) 40.9 42.0-54.0 [facility] CenterLmzjcdlZSWIUPAKHE0218-49-14 18:34:00 Test Item Value Reference Range Interpretation Comments WBC (test code = WBC) 13.5 3.7-10.4 [facility] CenterTeymguuPZYUALRRRK8171-34-19 18:34:00 Test Item Value Reference Range Interpretation Comments RBC (test code = RBC) 4.91 4.70-6.10 [facility] CenterIcsuskkCEURDDOJEF5219-57-04 18:34:00 Test Item Value Reference Range Interpretation Comments Hgb (test code = Hgb) 13.5 14.0-18.0 [facility] CenterLjmcqwsLPRDVXGLVL9923-71-90 18:34:00 Test Item Value Reference Range Interpretation Comments MCV (test code = MCV) 83.4 80.0-94.0 [facility] CenterWnvodhvCOYBVEISUZ8132-45-12 18:34:00 Test Item Value Reference Range Interpretation Comments MCH (test code = MCH) 27.5 pg 27.0-31.0 [facility] CenterBkgbtmrPKQCMPQIKV9130-00-89 18:34:00 Test Item Value Reference Range Interpretation Comments RDW (test code = RDW) 18.2 11.5-14.5 [facility] CenterHzuzhkcRADOAWWIZL4064-11-67 18:34:00 Test Item Value Reference Range Interpretation Comments MCHC (test code = MCHC) 33.0 32.0-36.0 [facility] CenterTnunkebNOZTZXEGWY4601-95-28 18:34:00 Test Item Value Reference Range Interpretation Comments Platelet (test code = Platelet) 216 133-450 [facility] CenterHtfbkigXVYTTINTFG0852-21-29 18:34:00 Test Item Value Reference Range Interpretation Comments MPV (test code = MPV) 8.5 7.4-10.4 [facility] CenterWqhpozjYQHOFGVRAN3258-13-69 18:34:00 Test Item Value Reference Range Interpretation Comments PTT (test code = PTT) 31.5 s 22.9-35.8 [facility] CenterJajztmeSAHOQBQZYV2485-77-85 18:34:00 Test Item Value Reference Range Interpretation Comments PT (test code = PT) 13.2 s 12.0-14.7 [facility] CenterFbtzsmqSULHQKWZDQ0050-31-01 18:34:00 Test Item Value Reference Range Interpretation Comments INR (test code = INR) 1.00 1 0.85-1.17 [facility] CenterKuiizqkJCKPIAFBZU3370-75-47 18:34:00 Test Item Value Reference Range Interpretation Comments Basophils # (test code 0.2 See_Comment [Aut omated message] The = Basophils #) system which generated this result tra nsmitted reference range : <=0.2. The reference r bret was not used to int erpret this result as normal/abnormal . [facility] CenterXpjeethOPOPXCBYPZ3080-47-53 18:34:00 Test Item Value Reference Range Interpretation Comments Lymphocytes (test code = Lymphocytes) 11.4 20.0-40.0 [facility] CenterNyfixzqAHRFWUVLYW2833-85-71 18:34:00 Test Item Value Reference Range Interpretation Comments Monocytes (test code = Monocytes) 4.4 2.0-12.0 [facility]KwlttotIKEBGDKHRD1590-15-33 18:34:00 Test Item Value Reference Range Interpretation Comments Neutrophils # (test code = Neutrophils 11.1 1.5-8.1 #) [facility] HospitalWlekwxkIFZITGNPLZ1933-60-07 18:34:00 Test Item Value Reference Range Interpretation Comments Lymphocytes # (test code = Lymphocytes 1.5 1.0-5.5 #) [facility] CenterVbgpxxbFSZGCGNZBL3604-72-75 18:34:00 Test Item Value Reference Range Interpretation Comments Eosinophils # (test code 0.1 See_Comment [A utomated message] The = Eosinophils #) system whic h generated this result tra nsmitted reference range : <=0.5. The reference r bret was not used to int erpret this result as normal/abnormal . [facility] CenterYvryhaaBLJAQICRJF5760-01-62 18:34:00 Test Item Value Reference Range Interpretation Comments Monocytes # (test code 0.6 See_Comment [Aut omated message] The = Monocytes #) system which generated this result tra nsmitted reference range : <=0.8. The reference r bret was not used to int erpret this result as normal/abnormal . [facility] CenterSsctnebAELMAYKLMY3443-37-17 18:34:00 Test Item Value Reference Range Interpretation Comments Eosinophils (test code = 0.9 See_Comment [A utomated message] The Eosinophils) system which ge nerated this result tra nsmitted reference range : <=4.0. The reference r bret was not used to int erpret this result as normal/abnormal . [facility] CenterYshbsgjOZVQTYBFJQ1149-28-82 18:34:00 Test Item Value Reference Range Interpretation Comments Basophils (test code = 1.5 See_Comment [Aut omated message] The Basophils) system which ge nerated this result tra nsmitted reference range : <=1.0. The reference r bret was not used to int erpret this result as normal/abnormal . [facility] HospitalLfqkeaeNIDNHAYKDH7803-27-80 18:34:00 Test Item Value Reference Range Interpretation Comments Segs (test code = Segs) 81.8 45.0-75.[address] [facility], TxCARDIAC ARGBZPI4526-21-86 18:34:00 Test Item Value Reference Range Interpretation Comments Total CK (test code = Total CK) 105 12-191 [facility]2018-10-23 18:34:00 Test Item Value Reference Range Interpretation Comments Globulin (test code = Globulin) 5.2 2.7-4.2 [place] 664258-10-23 18:34:00 Test Item Value Reference Range Interpretation Comments A/G Ratio (test code = A/G Ratio) 0.8 1 0.7-1.6 [place] 664258-10-23 18:34:00 Test Item Value Reference Range Interpretation Comments Albumin Lvl (test code = Albumin Lvl) 4.4 3.5-5.0 [place] 664258-10-23 18:34:00 Test Item Value Reference Range Interpretation Comments Total Protein (test code = Total 9.6 6.4-8.4 Protein) [place] 664258-10-23 18:34:00 Test Item Value Reference Range Interpretation Comments Bili Direct (test code 0.1 See_Comment [Aut omated message] The = Bili Direct) system which generated this result tra nsmitted reference range : <=0.3. The reference r bret was not used to int erpret this result as mateo l/abnormal. [place] 664258-10-23 18:34:00 Test Item Value Reference Range Interpretation Comments Bili Total (test code = Bili Total) 0.6 0.2-1.3 [place] 664258-10-23 18:34:00 Test Item Value Reference Range Interpretation Comments Bili Indirect (test 0.5 See_Comment [Automa jw message] The code = Bili Indirect) system which generated this result tra nsmitted reference range : <=1.0. The reference r bret was not used to int erpret this result as normal/abnormal . [place] 664258-10-23 18:34:00 Test Item Value Reference Range Interpretation Comments AST (test code = AST) 23 See_Comment [Auto mated message] The system which ge nerated this result transmit jw reference range : <=37. The reference range was not used to interpr et this result as mateo l/abnormal. [place] 664258-10-23 18:34:00 Test Item Value Reference Range Interpretation Comments ALT (test code = ALT) 23 See_Comment [Auto mated message] The system which ge nerated this result transmit jw reference range : <=65. The reference range was not used to interpr et this result as mateo l/abnormal. [facility] [id number] 18:34:00 Test Item Value Reference Range Interpretation Comments Alk Phos (test code = Alk Phos) 161 39-136 [facility] [id number] 18:34:00 Test Item Value Reference Range Interpretation Comments Lipase Lvl (test code = Lipase Lvl) 202 73-393 [facility] [id number] 18:34:00 Test Item Value Reference Range Interpretation Comments Lactic Acid WB (test code = Lactic Acid 2.5 0.5-2.2 WB) [facility] HospitalKmletcgUXABLURWRIZX4329-68-11 18:34:00 Test Item Value Reference Range Interpretation Comments AGAP (test code = AGAP) 17.3 10.0-20.0 [facility] HospitalGfslcilNNIASMHZIECY8371-70-12 18:34:00 Test Item Value Reference Range Interpretation Comments Calcium Lvl (test code = Calcium Lvl) 9.9 8.5-10.5 [facility]ohwSSBWBZUGMXWW8133-05-23 18:34:00 Test Item Value Reference Range Interpretation Comments Chloride Lvl (test code = Chloride Lvl) 93 95-109 [facility] HospitalNttxgzjCDOWBXFTROWE1587-44-59 18:34:00 Test Item Value Reference Range Interpretation Comments CO2 (test code = CO2) 26 24-32 [facility] HospitalUuilrogYSVXJEUPJQBH9164-28-19 18:34:00 Test Item Value Reference Range Interpretation Comments Sodium Lvl (test code = Sodium Lvl) 132 135-145 [facility] HospitalKsvzhpuLYPUDXFGGZRV3962-24-56 18:34:00 Test Item Value Reference Range Interpretation Comments Potassium Lvl (test code = Potassium 4.3 3.5-5.1 Lvl) [facility] HospitalQvztvfwVXOSDPJBRNZB6142-54-50 18:34:00 Test Item Value Reference Range Interpretation Comments BUN (test code = BUN) 18 7-22 [facility] HospitalNxzocdaDXYRKQQITVUD6151-96-77 18:34:00 Test Item Value Reference Range Interpretation Comments Glucose Lvl (test code = Glucose Lvl) 133 70-99 [facility] HospitalCeoeksdVZUIFBEBUGVJ4532-21-29 18:34:00 Test Item Value Reference Range Interpretation Comments Creatinine Lvl (test code = Creatinine 0.99 0.50-1.40 Lvl) [facility] CenterTcmfgpcOAWVFQTKIV3357-38-85 18:34:00 Test Item Value Reference Range Interpretation Comments Hct (test code = Hct) 40.9 42.0-54.0 [facility] CenterXkryeglRPPMXXCUDI0410-58-44 18:34:00 Test Item Value Reference Range Interpretation Comments WBC (test code = WBC) 13.5 3.7-10.4 [facility] CenterLicbwjhXYORUFNCKY5265-38-95 18:34:00 Test Item Value Reference Range Interpretation Comments RBC (test code = RBC) 4.91 4.70-6.10 [facility] CenterTjmirtbVUSKOHUQYE7672-04-92 18:34:00 Test Item Value Reference Range Interpretation Comments Hgb (test code = Hgb) 13.5 14.0-18.0 [facility] CenterZauldczKDOZAEQENA7202-83-09 18:34:00 Test Item Value Reference Range Interpretation Comments MCV (test code = MCV) 83.4 80.0-94.0 [facility] CenterScjogsoHNZDBDVTMC6466-77-92 18:34:00 Test Item Value Reference Range Interpretation Comments MCH (test code = MCH) 27.5 pg 27.0-31.0 [facility] CenterDipxorxYWHLQRFRSM2429-44-88 18:34:00 Test Item Value Reference Range Interpretation Comments RDW (test code = RDW) 18.2 11.5-14.5 [facility] CenterWtcvnmgQDFPKUEWDK1069-90-66 18:34:00 Test Item Value Reference Range Interpretation Comments MCHC (test code = MCHC) 33.0 32.0-36.0 [facility] CenterBtjoeijSYQGNTCMCN8722-00-05 18:34:00 Test Item Value Reference Range Interpretation Comments Platelet (test code = Platelet) 216 133-450 [facility] CenterHugbfvdBHUCXKRSVT9862-04-54 18:34:00 Test Item Value Reference Range Interpretation Comments MPV (test code = MPV) 8.5 7.4-10.4 [facility] CenterBpzvwaaBAONDBPVHS3994-21-66 18:34:00 Test Item Value Reference Range Interpretation Comments PTT (test code = PTT) 31.5 s 22.9-35.8 [facility] CenterTxhqzuxFJPHFHYTPD9158-28-30 18:34:00 Test Item Value Reference Range Interpretation Comments PT (test code = PT) 13.2 s 12.0-14.7 [facility] CenterHglevjeSFSXXTXVOU1957-53-42 18:34:00 Test Item Value Reference Range Interpretation Comments INR (test code = INR) 1.00 1 0.85-1.17 [id number] 18:34:00 Test Item Value Reference Range Interpretation Comments Basophils # (test code 0.2 See_Comment [Aut omated message] The = Basophils #) system which generated this result tra nsmitted reference range : <=0.2. The reference r bret was not used to int erpret this result as normal/abnormal . [facility] CenterSruehnfXOQGHYJBUG6210-80-73 18:34:00 Test Item Value Reference Range Interpretation Comments Lymphocytes (test code = Lymphocytes) 11.4 20.0-40.0 [facility] CenterBjxtmuqSRIYMOSKXU4183-00-71 18:34:00 Test Item Value Reference Range Interpretation Comments Monocytes (test code = Monocytes) 4.4 2.0-12.0 [facility] CenterPymwwtgENSDBZAGFP5973-09-52 18:34:00 Test Item Value Reference Range Interpretation Comments Neutrophils # (test code = Neutrophils 11.1 1.5-8.1 #) [facility] CenterYpiveexUSNTTHHZEN0198-16-65 18:34:00 Test Item Value Reference Range Interpretation Comments Lymphocytes # (test code = Lymphocytes 1.5 1.0-5.5 #) [facility] CenterGamgareZKMUGDITGX8483-71-01 18:34:00 Test Item Value Reference Range Interpretation Comments Eosinophils # (test code 0.1 See_Comment [A utomated message] The = Eosinophils #) system whic h generated this result tra nsmitted reference range : <=0.5. The reference r bret was not used to int erpret this result as normal/abnormal . [facility] CenterZpnjytvBMGXKCMAGG7365-51-68 18:34:00 Test Item Value Reference Range Interpretation Comments Monocytes # (test code 0.6 See_Comment [Aut omated message] The = Monocytes #) system which generated this result tra nsmitted reference range : <=0.8. The reference r bret was not used to int erpret this result as normal/abnormal . [facility] CenterSqkaxdkSDUURWSPNO5811-25-09 18:34:00 Test Item Value Reference Range Interpretation Comments Eosinophils (test code = 0.9 See_Comment [A utomated message] The Eosinophils) system which ge nerated this result tra nsmitted reference range : <=4.0. The reference r bret was not used to int erpret this result as normal/abnormal . [facility] [place], TxOqtvgjlORCOYGQMEZ4782-62-49 18:34:00 Test Item Value Reference Range Interpretation Comments Basophils (test code = 1.5 See_Comment [Aut omated message] The Basophils) system which ge nerated this result tra nsmitted reference range : <=1.0. The reference r bret was not used to int erpret this result as normal/abnormal . [facility] [place], TxIhgtskaBENJYXLHQA9094-00-33 18:34:00 Test Item Value Reference Range Interpretation Comments Segs (test code = Segs) 81.8 45.0-75.[address] [facility] [place], TxCARDIAC [id number] 18:34:00 Test Item Value Reference Range Interpretation Comments Total CK (test code = Total CK) 105 12-191 [facility] [id number] 18:34:00 Test Item Value Reference Range Interpretation Comments Globulin (test code = Globulin) 5.2 2.7-4.2 [facility] [id number] 18:34:00 Test Item Value Reference Range Interpretation Comments A/G Ratio (test code = A/G Ratio) 0.8 1 0.7-1.6 [facility] [id number] 18:34:00 Test Item Value Reference Range Interpretation Comments Albumin Lvl (test code = Albumin Lvl) 4.4 3.5-5.0 [facility] [id number] 18:34:00 Test Item Value Reference Range Interpretation Comments Total Protein (test code = Total 9.6 6.4-8.4 Protein) [facility], TxCE2 [employer] [id number] 18:34:00 Test Item Value Reference Range Interpretation Comments Bili Direct (test code 0.1 See_Comment [Aut omated message] The = Bili Direct) system which generated this result tra nsmitted reference range : <=0.3. The reference r bret was not used to int erpret this result as mateo l/abnormal. [facility] [place] [id number] 18:34:00 Test Item Value Reference Range Interpretation Comments Bili Total (test code = Bili Total) 0.6 0.2-1.3 [facility] [id number] 18:34:00 Test Item Value Reference Range Interpretation Comments Bili Indirect (test 0.5 See_Comment [Automa jw message] The code = Bili Indirect) system which generated this result tra nsmitted reference range : <=1.0. The reference r bret was not used to int erpret this result as normal/abnormal . [facility] [id number] 18:34:00 Test Item Value Reference Range Interpretation Comments AST (test code = AST) 23 See_Comment [Auto mated message] The system which ge nerated this result transmit jw reference range : <=37. The reference range was not used to interpr et this result as mateo l/abnormal. [facility]2018-10-23 18:34:00 Test Item Value Reference Range Interpretation Comments ALT (test code = ALT) 23 See_Comment [Auto mated message] The system which ge nerated this result transmit jw reference range : <=65. The reference range was not used to interpr et this result as mateo l/abnormal. [facility] [id number] 18:34:00 Test Item Value Reference Range Interpretation Comments Alk Phos (test code = Alk Phos) 161 39-136 [facility] [id number] 18:34:00 Test Item Value Reference Range Interpretation Comments Lipase Lvl (test code = Lipase Lvl) 202 73-393 [facility] [id number] 18:34:00 Test Item Value Reference Range Interpretation Comments Lactic Acid WB (test code = Lactic Acid 2.5 0.5-2.2 WB) [facility]rh[facility]ahDHMD[facility]NTNHGW0960[facility]56-[facility] 18:34:00 Test Item Value Reference Range Interpretation Comments AGAP (test code = AGAP) 17.3 10.0-20.0 [facility] HospitalVxzlwqzSTRCATKIKTTD7561-78-60 18:34:00 Test Item Value Reference Range Interpretation Comments Calcium Lvl (test code = Calcium Lvl) 9.9 8.5-10.5 [facility] HospitalXfkmaqjXBTUSYPAPIWV1567-44-31 18:34:00 Test Item Value Reference Range Interpretation Comments Chloride Lvl (test code = Chloride Lvl) 93 95-109 [facility] HospitalKlkpmcpRZRNSLVGSWBL0668-45-06 18:34:00 Test Item Value Reference Range Interpretation Comments CO2 (test code = CO2) 26 24-32 [facility] HospitalHktsxkiTHQZDEIHLPHP9035-16-52 18:34:00 Test Item Value Reference Range Interpretation Comments Sodium Lvl (test code = Sodium Lvl) 132 135-145 [facility] HospitalOzvjighLZBWUEQWJYEN2202-07-44 18:34:00 Test Item Value Reference Range Interpretation Comments Potassium Lvl (test code = Potassium 4.3 3.5-5.1 Lvl) [facility] HospitalWeoolzgYELIMNLUXIJO1967-15-54 18:34:00 Test Item Value Reference Range Interpretation Comments BUN (test code = BUN) 18 7-22 [facility] HospitalBvqczwmJWWXCJDULINH2240-23-09 18:34:00 Test Item Value Reference Range Interpretation Comments Glucose Lvl (test code = Glucose Lvl) 133 70-99 [facility] HospitalDzsexkyCCEBMMEWPDNA7980-24-80 18:34:00 Test Item Value Reference Range Interpretation Comments Creatinine Lvl (test code = Creatinine 0.99 0.50-1.40 Lvl) [facility] CenterSpttbodBRDURNOLTP1514-96-23 18:34:00 Test Item Value Reference Range Interpretation Comments Hct (test code = Hct) 40.9 42.0-54.0 [facility] CenterOkhrylvCJYYHXHCHF3562-31-82 18:34:00 Test Item Value Reference Range Interpretation Comments WBC (test code = WBC) 13.5 3.7-10.4 [facility] CenterJptwxfpMKYGHQUOZK0476-84-39 18:34:00 Test Item Value Reference Range Interpretation Comments RBC (test code = RBC) 4.91 4.70-6.10 [facility] CenterCwbbftbZTOAKALNTS0880-08-42 18:34:00 Test Item Value Reference Range Interpretation Comments Hgb (test code = Hgb) 13.5 14.0-18.0 [facility] CenterHwxigupCVRHKVTFUF4983-70-54 18:34:00 Test Item Value Reference Range Interpretation Comments MCV (test code = MCV) 83.4 80.0-94.0 [facility] CenterChdqtbfUOACUDAWNZ1948-00-54 18:34:00 Test Item Value Reference Range Interpretation Comments MCH (test code = MCH) 27.5 pg 27.0-31.0 [facility] CenterReccbvhQSVTVDPKOF9891-72-35 18:34:00 Test Item Value Reference Range Interpretation Comments RDW (test code = RDW) 18.2 11.5-14.5 [facility] CenterQguyiodTTVJFSWIYV3688-53-07 18:34:00 Test Item Value Reference Range Interpretation Comments MCHC (test code = MCHC) 33.0 32.0-36.0 [facility] CenterNksrvmuRMNYLKXDOI7078-12-14 18:34:00 Test Item Value Reference Range Interpretation Comments Platelet (test code = Platelet) 216 133-450 [facility] CenterVjacrbzDQPABRHLAQ5150-13-72 18:34:00 Test Item Value Reference Range Interpretation Comments MPV (test code = MPV) 8.5 7.4-10.4 [facility] CenterAqioyxpKSAFWVUGPD6639-25-61 18:34:00 Test Item Value Reference Range Interpretation Comments PTT (test code = PTT) 31.5 s 22.9-35.8 [facility] CenterHvwtsfdEQQZJGSSPK6783-93-11 18:34:00 Test Item Value Reference Range Interpretation Comments PT (test code = PT) 13.2 s 12.0-14.7 [facility] CenterBkiudsdAEJVISNREH6548-44-37 18:34:00 Test Item Value Reference Range Interpretation Comments INR (test code = INR) 1.00 1 0.85-1.17 [facility] CenterGdaplumANNSNODYHP4491-13-41 18:34:00 Test Item Value Reference Range Interpretation Comments Basophils # (test code 0.2 See_Comment [Aut omated message] The = Basophils #) system which generated this result tra nsmitted reference range : <=0.2. The reference r bret was not used to int erpret this result as normal/abnormal . [facility] CenterSpdgutaWFZSJMMKXT6822-80-99 18:34:00 Test Item Value Reference Range Interpretation Comments Lymphocytes (test code = Lymphocytes) 11.4 20.0-40.0 [facility] CenterMdklvrqEHZTPDZTXN3492-49-58 18:34:00 Test Item Value Reference Range Interpretation Comments Monocytes (test code = Monocytes) 4.4 2.0-12.0 [facility] CenterYheehlwDGRCUCBZAZ8568-50-38 18:34:00 Test Item Value Reference Range Interpretation Comments Neutrophils # (test code = Neutrophils 11.1 1.5-8.1 #) [facility] CenterRruopcxYZRCUCZTPM5606-55-38 18:34:00 Test Item Value Reference Range Interpretation Comments Lymphocytes # (test code = Lymphocytes 1.5 1.0-5.5 #) [facility] CenterNyjlqrbZOCYJUJPQU0506-37-19 18:34:00 Test Item Value Reference Range Interpretation Comments Eosinophils # (test code 0.1 See_Comment [A utomated message] The = Eosinophils #) system whic h generated this result tra nsmitted reference range : <=0.5. The reference r bret was not used to int erpret this result as normal/abnormal . [facility] CenterAtiwcviOWFGXGESSR7064-37-65 18:34:00 Test Item Value Reference Range Interpretation Comments Monocytes # (test code 0.6 See_Comment [Aut omated message] The = Monocytes #) system which generated this result tra nsmitted reference range : <=0.8. The reference r bret was not used to int erpret this result as normal/abnormal . [facility] CenterZjsakdzNOAUJBHGUC8360-61-45 18:34:00 Test Item Value Reference Range Interpretation Comments Eosinophils (test code = 0.9 See_Comment [A utomated message] The Eosinophils) system which ge nerated this result tra nsmitted reference range : <=4.0. The reference r bret was not used to int erpret this result as normal/abnormal . [facility] CenterMjvszpsEZELSRGVIU2599-96-95 18:34:00 Test Item Value Reference Range Interpretation Comments Basophils (test code = 1.5 See_Comment [Aut omated message] The Basophils) system which ge nerated this result tra nsmitted reference range : <=1.0. The reference r bret was not used to int erpret this result as normal/abnormal . [facility] CenterNagijncZCEQGKPHDU0443-23-24 18:34:00 Test Item Value Reference Range Interpretation Comments Segs (test code = Segs) 81.8 45.0-75.0 [facility]/FREE T4 IF [id number] 04:03:00 Test Item Value Reference Range Interpretation Comments THYROID STIMULATING HORMONE 3.16 uIU/mL 0.35-4.94 (BEAKER) (test code = 772) BASIC METABOLIC [id number] 03:35:00 Test Item Value Reference Range Interpretation [...] PATIEN TS. CBC W/PLT COUNT & AUTO [id number] 03:24:00 Test Item Value Reference Range Interpretation [...] PERCENT (BEAKER) (test code = 2801) TROPONIN [id number] 20:57:00 Test Item Value Reference Range Interpretation [...] Quintanilla Verified Date/Time: 12/01/2017 18:41:06 Reading Location: [facility] Radiology Reading Room TROPONIN [id number] 17:00:00 Test Item Value Reference Range Interpretation [...] failure, acidosis, acute neurological disease, and persistent tachyarrhythmia.[id number] 16:23:00 Test Item Value Reference Range Interpretation Comments POTASSIUM (BEAKER) (test code = 3.7 meq/L 3.5-5.1 379) Check Serum Potassium level 2 hours after oral potassium replacement completed or 30 min after intravenous potassium replacement.[id number] 11:59:00 Test Item Value Reference Range Interpretation Comments MAGNESIUM (BEAKER) 2.2 mg/dL 1.6-2.6 Specimen slightly (test code = 627) hemolyzed [id number] 11:59:00 Test Item Value Reference Range Interpretation Comments PHOSPHORUS (BEAKER) 2.6 mg/dL 2.3-4.7 Specimen slightly (test code = 604) hemolyzed HEMOGLOBIN [id number] 11:49:00 Test Item Value Reference Range Interpretation Comments HEMOGLOBIN A1C (BEAKER) (test code = 6.0 % 4.3-6.1 368) TROPONIN [id number] 08:40:00 Test Item Value Reference Range Interpretation [...] acidosis, acute neurological disease, and persistent tachyarrhythmia.LIPID [id number] 04:39:00 Test Item Value Reference Range Interpretation [...] High 160-189 Very High >=190 FastingBASIC METABOLIC [id number] 04:39:00 Test Item Value Reference Range Interpretation [...] PATIEN TS. FastingCBC W/PLT COUNT & AUTO [id number] 04:25:00 Test Item Value Reference Range Interpretation [...] PERCENT (BEAKER) (test code = 2801) HEMOGLOBIN [id number] 22:29:00 Test Item Value Reference Range Interpretation Comments HEMOGLOBIN A1C (BEAKER) (test code = 5.9 % 4.3-6.1 368) VITAMIN B12 AND [id number] 18:47:00 Test Item Value Reference Range Interpretation Comments VITAMIN B12 (BEAKER) (test code = 1185 pg/mL 213-816 H 774) FOLATE (BEAKER) (test code = 362) 2.3 ng/mL >=7.0 L TROPONIN [id number] 18:18:00 Test Item Value Reference Range Interpretation [...] acute neurological disease, and persistent tachyarrhythmia.BASIC METABOLIC [id number] 18:10:00 Test Item Value Reference Range Interpretation [...] PATIEN TS. CBC W/PLT COUNT & AUTO [id number] 17:52:00 Test Item Value Reference Range Interpretation [...] (BEAKER) (test code = 2801) BASIC METABOLIC [id number] 07:51:00 Test Item Value Reference Range Interpretation [...] PATIEN TS. CBC W/PLT COUNT & AUTO [id number] 05:55:00 Test Item Value Reference Range Interpretation [...] = 2801) CBC W/PLT COUNT & AUTO [id number] 05:15:00 Test Item Value Reference Range Interpretation [...] (test code = 2801) CT, BRAIN, WITHOUT [id number] 15:31:00FINAL REPORT CT head without contrast 03/12/2017 [...] Age-indeterminate left caudate nucleus infarct. Signed: Fiona Quintanillaeport Verified Date/Time: 03/12/2017 15:31:17 Reading Location: [address] Neuro Reading Room TROPONIN [id number] 15:26:00 Test Item Value Reference Range Interpretation [...] acidosis, acute neurological disease, and persistent tachyarrhythmia.HEMOGLOBIN [id number] 12:38:00 Test Item Value Reference Range Interpretation Comments HEMOGLOBIN A1C (KYARA) (test code = 5.6 % 4.3-6.1 368) FastingRAD, CHEST, 1 VIEW, NON [id number] 10:06:00Reason for exam:->rule out pneumoniaShould this be [...] and lateral chest imaging. Signed: Acacia Benites DARYAeport Verified Date/Time: 03/12/2017 10:06:57 Reading Location: [facility] Radiology Reading Room [id number] 09:08:00 Test Item Value Reference Range Interpretation Comments HOMOCYSTEINE (BEAKER) (test code 11.8 umol/L 5.1-15.4 = 642) FastingCREATINE KINASE (CK), TOTAL AND [id number] 08:55:00 Test Item Value Reference Range Interpretation Comments CREATINE KINASE TOTAL (BEAKER) 59 U/L 29-200 (test code = 380) CREATINE KINASE-MB (BEAKER) (test 1.0 ng/mL 0.0-6.6 code = 750) CREATINE KINASE-MB INDEX (BEAKER) 1.7 % (test code = 395) CK-MB Reference Range:<6.7 Normal6.7-10.0 Borderline>10.0 AbnormalFastingFastingTROPONIN [id number] 08:55:00 Test Item Value Reference Range Interpretation [...] acidosis, acute neurological disease, and persistent tachyarrhythmia.FastingLIPID [id number] 08:48:00 Test Item Value Reference Range Interpretation [...] High 160-189 Very High >=190 FastingBASIC METABOLIC [id number] 08:48:00 Test Item Value Reference Range Interpretation [...] PATIEN TS. FastingCBC W/PLT COUNT & AUTO [id number] 08:24:00 Test Item Value Reference Range Interpretation [...] (test code = 2801) TSH/FREE T4 IF [id number] 03:38:00 Test Item Value Reference Range Interpretation Comments THYROID STIMULATING HORMONE 2.01 uIU/mL 0.35-4.94 (BEAKER) (test code = 772) VITAMIN B12 AND [id number] 03:38:00 Test Item Value Reference Range Interpretation Comments VITAMIN B12 (BEAKER) (test code = 1008 pg/mL 213-816 H 774) FOLATE (BEAKER) (test code = 362) 8.4 ng/mL >=7.0 CREATINE KINASE (CK), TOTAL AND [id number] 01:03:00 Test Item Value Reference Range Interpretation Comments CREATINE KINASE TOTAL (BEAKER) 66 U/L 29-200 (test code = 380) CREATINE KINASE-MB (BEAKER) (test 1.4 ng/mL 0.0-6.6 code = 750) CREATINE KINASE-MB INDEX (BEAKER) 2.1 % (test code = 395) CK-MB Reference Range:<6.7 Normal6.7-10.0 Borderline>10.0 AbnormalTROPONIN [id number] 01:03:00 Test Item Value Reference Range Interpretation [...] acute neurological disease, and persistent tachyarrhythmia.BASIC METABOLIC [id number] 00:56:00 Test Item Value Reference Range Interpretation [...] NOT APPLICABLE FOR DIALYSIS PATIEN TS. PROTHROMBIN TIME/[id number] 00:27:00 Test Item Value Reference Range Interpretation [...] mechanical heart valves.CBC W/PLT COUNT & AUTO [id number] 00:01:00 Test Item Value Reference Range Interpretation [...]
[2022-03-13 15:35] VITALS: BP 145/68; TEMP 97; BMI 21.2
[2022-03-13 17:33] LABS: Specific Gravity 1.009 (1.005-1.030); Urine Bacteria None Seen /HPF (<20); Urine Bilirubin NEGATIVE (Negative); Urine Blood Negative (Negative); Urine Clarity Turbid (Clear); Urine Color Light-Yellow (Yellow); Urine Glucose NEGATIVE (Negative); Urine Mucus Slight /HPF (None Seen); Urine Protein NEGATIVE (Negative); Urine RBC <5 /HPF (None Seen); Urine Urobilinogen Normal (Normal); Urine pH 7.5 (5.0-7.0)
[2022-03-13] MEDS ORDERED: ALBUTEROL 2.5 MG/3 ML NEB SOL NEB SCH (20:00)
[2022-03-13] MEDS ORDERED: ATORVASTATIN 40 MG TAB PO SCH (21:00)
[2022-03-14] MEDS ORDERED: ASPIRIN 325 MG TAB PO SCH (08:00)
--- NOTE | 2022-04-13 11:43 | DS ---
Date of Discharge: 03/13/2022 It should be noted, the patient actually left against medical advice and he left the same day he came to the hospital. History Of Present Illness: Mr. Morfin is a 72-year-old patient who came to [facility] on the 25 of March with complaints of left arm, face, and leg weakness, difficulty with ambulation and paresthesias. His evaluation included a head CT scan, which showed no acute intracranial abnorma lities. It was recommended that the patient receive an MRI of the brain. The patient's NIH Stroke S werner was at most 8. Because of the inability to receive locally a brain MRI and further evaluation, and he was on Eliquis 5 mg twice daily, he was actually [facility] and he left [facility] at the NIH Stroke Scale of 6 due to left arm drift of 1, left leg drift of 1, limb ataxia of 2, loss of sensation on the left face, arm, and leg o f 1. The patient was managed at the outside hospital and then came back for admission to the [facility] unit at [facility]. Please note again, the patient was admitted on 2022 to the inpatient rehabilitation unit. I did have the left-sided symptoms as noted that come fro m [facility] and at that point, when he got to the unit, he was able to ambulate 250 feet and another 150 f eet with standby assistance using a rolling walker and he ascended and descended 10 steps with standb y assistance. The patient wanted to go outside and do smoking and he was told that was not going to happen and he actually indicated he did not want to remain in the unit and ended up not staying and l eft against medical advice. The patient was advised that he needs to follow up with his primary care physician and neurologist to continue his care and all his medications that he is on. If need be, h e may even follow up in my office as an outpatient basis. JOANN/REGINA Voice ID: [id number] Report ID: [id number]
== END 2022-03-13 16:53 | disposition left against medical advice (07) | DRG 57 ==
LOC: 5TH 15:03
PROVIDERS: ADMIT Psychiatry & Neurology Neurology with Special Qualifications in Child Neurology; ATTEND Psychiatry & Neurology Neurology with Special Qualifications in Child Neurology
DX: G81.94 Hemiplegia, unspecified affecting left nondominant side (principal); F17.200 Nicotine dependence, unspecified, uncomplicated; Z53.29 Procedure and treatment not carried out because of patient's decision for other reasons
CPT/HCPCS: 81001; 87086; 87088; 97116; 97161; 97530; U0003

== ENCOUNTER 2022-03-25 19:26 | Emergency (ER) | payer OTHER ==
[2022-03-25 19:46] LABS: Absolute Lymphocytes (CBC) 2.4 K/uL (0.7-4.9); Hematocrit 30.6 % (39.6-49.0); Lymphocytes % 37.4 % (15.3-44.8); MCV 81.6 fL (80-100); MPV 8.9 fL (7.6-11.3); RBC Red Blood Cell Count 3.75 M/uL (4.33-5.43)
--- NOTE | 2022-03-25 19:46 | RAD REPORT ---
EXAM DESCRIPTION: CT - Ct Stroke Brain Wo Cont - 03/25/2022 7:38 pm CLINICAL HISTORY: Left-sided weakness COMPARISON: 2019 TECHNIQUE: Computed axial tomography of the head was obtained. All CT scans are performed using dose optimization technique as appropriate and may include automated exposure control or mA/KV adjustment according to patient size. FINDINGS: An intracranial bleed is not seen . The ventricles are normal in caliber. No extra-axial fluid collection is noted. No significant hypodensity within the brain Fluid within the sinuses/ mastoids is not seen. IMPRESSION: No acute intracranial abnormality is seen. If patient's symptoms persist MRI of the bra in would be recommended. Doctor Cruz of the emergency room was notified at 7:42 p.m. March 25, 2022
[2022-03-25 19:51] LABS: Protime INR 1.05
--- NOTE | 2022-03-25 19:57 | ER ---
Nurse's Notes [facility] Name: Maurice Morfin Age: 72 yrs Sex: Male : 1950 Arrival Date: 03/25/2022 Time: 19:28 Bed 19 Private MD: Diagnosis: Cerebral infarction, unspecified-left side weakness, acute;watermaster (current) use of anticoagulants-eliquis;Anemia, unspecified Presentation: 03/25 19:33 Chief complaint: Patient's son or daughter states: son states pt last known normal was jh5 at 1800pm today; with noted left sided weakness and droop, slow to respond. Son states pt had a mini stroke first of the year and was in [facility] and is concerned he is having another. Coronavirus screen: Vaccine status: Patient reports being unvaccinated. Client denies travel out of the [place] in the last 14 days. Ebola Screen: Patient negative for fever greater than or equal to 101.5 degrees Fahrenheit, and additional compatible Ebola Virus Disease symptoms Patient denies exposure to infectious person. Patient denies travel to an Ebola-affected area in the 21 days before illness onset. Initial Sepsis Screen: Does the patient meet any 2 criteria? No. Patient's initial sepsis screen is negative. Does the patient have a suspected source of infection? No. Patient's initial sepsis screen is negative. Risk Assessment: Do you want to hurt yourself or someone else? Patient reports no desire to harm self or others. Onset of symptoms was March 25, 2022. 19:33 Method Of Arrival: Wheelchair 5 19:33 Acuity: WAYLON 2 jh5 Triage Assessment: 19:36 General: Appears in no apparent distress. slender, Behavior is calm, cooperative, flat. jh5 Pain: Denies pain. Historical: - Allergies: 19:36 Codeine; jh5 - PMHx: 19:36 Cholelithiasis; COPD; CVA; Dementia; enlarged prostate; Hernia; Hypertension; NE; PVD; jh5 TIA; - Immunization history:: Adult Immunizations up to date. - Social history:: Smoking status: Patient reports the use of cigarette tobacco products, smokes one-half pack cigarettes per day. - Family history:: not pertinent. Screenin:46 Abuse screen: Denies threats or abuse. Nutritional screening: No deficits noted. vc1 Tuberculosis screening: No symptoms or risk factors identified. 20:46 [facility] ED Fall Risk Assessment (Adult) History of falling in the last 3 months, vc1 including since admission No falls in past 3 months (0 pts) Confusion or Disorientation Yes (5 pts) Intoxicated or Sedated No (0 pts) Impaired Gait Yes (1 pt) Mobility Assist Device Used Yes (1 pt) Altered Elimination No (0 pt) Score/Fall Risk Level 3 or more points = High Risk Oriented to surroundings, Maintained a safe environment, Educated pt \T\ family on fall prevention, incl call for assistance when getting out of bed. 20:58 VAN Screening: Arm Drift: Minor drift. Visual Disturbance: No visual disturbance noted. vc1 Aphasia: No aphasia noted. Neglect: No neglect noted. 22:00 Patient has been NPO before screening. The patient is alert, able to follow commands. vc1 The patient does not exhibit slurred or garbled speech The patient is not exhibiting difficulty speaking. The patient does not exhibit difficulty understanding words. The patient is able to swallow own secretions with no drooling or need for suction. The patient did not tolerate one teaspoon of water. Drooling, immediate coughing, gurgling, or clearing of the throat was noted. Bedside swallow screening discontinued. Patient kept NPO until cleared by Speech Therapy or Physician. The patient failed the bedside swallow screening. The patient will be kept NPO until cleared by Speech Therapy or Physician. Provider notified of bedside swallow screening results: Caio Cruz MD. Assessment: 19:30 General: Appears uncomfortable, Behavior is anxious. Pain: Denies pain. Neuro: Level of vc1 Consciousness is awake, obeys commands, Oriented to person, place, time, situation, Weakness in left arm(s) leg(s) Numbness in left leg and left arm Reports blurred vision numbness in left arm and left leg. Cardiovascular: Denies chest pain. Respiratory: Airway is patent Respiratory effort is even, unlabored, Respiratory pattern is symmetrical, tachypnea. GI: No deficits noted. No signs and/or symptoms were reported involving the gastrointestinal system. : No deficits noted. No signs and/or symptoms were reported regarding the genitourinary system. EENT: No deficits noted. No signs and/or symptoms were reported regarding the EENT system. Derm: No deficits noted. No signs and/or symptoms reported regarding the dermatologic system. Musculoskeletal: Circulation, motion, and sensation intact. 20:30 Reassessment: Waiting for acceptance to another facility. vc1 20:58 Reassessment: No changes from previously documented assessment. Patient and/or family vc1 updated on plan of care and expected duration. Pain level reassessed. Patient states symptoms have not improved. 22:00 Reassessment: No changes from previously documented assessment. vc1 22:00 Reassessment: Pt placed on nasal canula for comfort. vc1 22:54 Reassessment: No changes from previously documented assessment. Patient and/or family vc1 updated on plan of care and expected duration. Pain level reassessed. Patient states symptoms have not improved. 22:58 Reassessment: notified provider that patient is complaining of pain to jaw and right vc1 side of lower ribcage. 23:55 Reassessment: No changes from previously documented assessment. Patient and/or family vc1 updated on plan of care and expected duration. Pain level reassessed. Patient states symptoms have not improved. Vital Signs: 19:33 BP 187 / 70; Pulse 79; Resp 18; Temp 98.7; Pulse Ox 100% ; Weight 63.5 kg; Height 5 ft. jh5 9 in. (175.26 cm); Pain 0/10; 19:35 BP 168 / 70; Pulse 68; Resp 22; Pulse Ox 100% ; vc1 20:30 BP 133 / 68; Pulse 64; Resp 24; Pulse Ox 100% ; vc1 21:45 BP 150 / 84; Pulse 69; Resp 22; Pulse Ox 100% ; vc1 22:15 BP 156 / 65; Pulse 63; Resp 24; Pulse Ox 100% ; vc1 23:30 BP 147 / 63; Pulse 60; Resp 16; Pulse Ox 100% on 2 lpm NC; vc1 19:33 Body Mass Index 20.67 (63.50 kg, 175.26 cm) jh5 Renaldo Coma Score: 20:02 Eye Response: spontaneous(4). Verbal Response: oriented(5). Motor Response: obeys john paul commands(6). Total: 15. NIH Stroke Scale Scores: 20:02 NIHSS Score: 6 john paul 20:58 NIHSS Score: 8 vc1 ED Course: 19:28 Patient arrived in ED. ja2 19:30 Missed attempt(s): 20 gauge Bleeding controlled, band aid applied, catheter tip intact. vc1 19:32 Caio Cruz MD is Attending Physician. [facility] 19:36 Triage completed. 5 19:36 Arm band placed on right wrist. 5 19:39 Ct Stroke Brain Wo Cont In Process Unspecified. EDMS 19:40 Patient has correct armband on for positive identification. Placed in gown. Bed in low vc1 position. Call light in reach. Client placed on continuous cardiac and pulse oximetry monitoring. NIBP monitoring applied. 20:08 Stroke CXR 1 View In Process Unspecified. EDMS 20:17 Iveth Cantor, RN is Primary Nurse. jh5 20:57 CT Head Angio In Process Unspecified. EDMS 20:57 CT Neck Angio In Process Unspecified. [facility] 03/26 00:07 No provider procedures requiring assistance completed. Patient transferred, IV remains vc1 in place. Administered Medications: 03/25 20:16 Drug: NS 0.9% 1000 ml Route: IV; Rate: 1 bolus; Site: right antecubital; [facility] 21:17 Follow up: IV Status: Completed infusion; IV Intake: 1000ml vc1 20:16 Drug: foLIC Acid 1 mg Route: IVPB; Site: right antecubital; 5 20:17 Follow up: Response: No adverse reaction; IV Status: Completed infusion vc1 22:30 Drug: Eliquis (apixaban) 5 mg {Note: made into paste.} Route: PO; vc1 23:01 Follow up: Response: No adverse reaction vc1 22:30 Drug: Pepcid (famotidine) 20 mg Route: IVP; Site: right antecubital; vc1 23:01 Follow up: Response: No adverse reaction vc1 Medication: 21:01 VIS not applicable for this client. vc1 Intake: 21:17 IV: 1000ml; Total: 1000ml. vc1 Outcome: 19:57 ER care complete, transfer ordered by . [facility] 03/26 00:07 Instructed on the need for transfer. vc1 00:34 Transferred by ground EMS to [facility], Transfer form completed. X-rays vc1 sent w/ patient. 00:34 Condition: stable 00:34 Patient left the ED. vc1 NIH Stroke Scale - NIH Stroke Score Date: 03/25/2022 Time: 20:02 Total Score = 6 1a. Level of Consciousness (LOC) - 0(Alert) 1b. Level of Consciousness (LOC) (Month \T\ Age) - 0(Both) 1c. LOC Commands (Open \T\ Closes Eyes/Daycare Provider) - 0(Both) 2. Best Gaze (Lateral Gaze Paresis) - 0(Normal) 3. Visual Field Loss - 0(No visual loss) 4. Facial Palsy - 1(Minor Paralysis) 5a. Left Arm: Motor (10-second hold) - 1(Drift) 5b. Right Arm: Motor (10-second hold) - 0(No drift) 6a. Left Leg: Motor (5-second hold - always test supine) - 1(Drift) 6b. Right Leg: Motor (5-second hold - always test supine) - 0(No drift) 7. Limb Ataxia (finger/nose \T\ heel/[place] val[place] - test with eyes open) - 2(Present in two limbs) 8. Sensory Loss (pinprick arms/legs/face) - 1(Mild to moderate loss) 9. Best Language: Aphasia (description/naming/reading) - 0(No aphasia) 10. Dysarthria (speech clarity - read or repeat words) - 0(Normal) 11. Extinction and Inattention (visual/tactile/auditory/spatial/personal) - 0(No abnormality) Initials: [facility] NIH Stroke Scale - NIH Stroke Score Date: 03/25/2022 Time: 20:58 Total Score = 8 1a. Level of Consciousness (LOC) - 1(Not Alert) 1b. Level of Consciousness (LOC) (Month \T\ Age) - 1(One) 1c. LOC Commands (Open \T\ Closes Eyes/Daycare Provider) - 0(Both) 2. Best Gaze (Lateral Gaze Paresis) - 0(Normal) 3. Visual Field Loss - 0(No visual loss) 4. Facial Palsy - 0(Normal) 5a. Left Arm: Motor (10-second hold) - 1(Drift) 5b. Right Arm: Motor (10-second hold) - 0(No drift) 6a. Left Leg: Motor (5-second hold - always test supine) - 2(Drift, some effort against gravity) 6b. Right Leg: Motor (5-second hold - always test supine) - 0(No drift) 7. Limb Ataxia (finger/nose \T\ heel/del valle - test with eyes open) - 0(Absent) 8. Sensory Loss (pinprick arms/legs/face) - 2(Severe to total loss) 9. Best Language: Aphasia (description/naming/reading) - 0(No aphasia) 10. Dysarthria (speech clarity - read or repeat words) - 0(Normal) 11. Extinction and Inattention (visual/tactile/auditory/spatial/personal) - 1(Present) Initials: vc1 Signatures: Dispatcher [employer] EDMS Caio Cruz MD MD cha Alexander, Jessica ja2 Iveth Cantor RN RN jh5 Vandana Nelson RN RN vc1 Corrections: (The following items were deleted from the chart) 03/25 20:58 20:51 BP 157 / 71; Pulse 94bpm; Resp 18bpm; Pulse Ox 98%; vc1 vc1 20:58 19:30 BP 157 / 90; Pulse 84bpm; Resp 18bpm; Pulse Ox 98%; vc1 vc1 22:54 22:00 Reassessment: No changes from previously documented assessment. Patient vc1 and/or family updated on plan of care and expected duration. Pain level reassessed. Patient states symptoms have not improved. vc1 23:55 20:49 Home Meds: memantine 10 mg oral tab 1 tab 2 times per day; vc1 vc1 23:55 20:49 Home Meds: simvastatin 10 mg Oral tab once daily; vc1 vc1
--- NOTE | 2022-03-25 19:57 | EDPHYS ---
Physician Documentation [facility] Name: Maurice Morfin Age: 72 yrs Sex: Male : 1950 Arrival Date: 03/25/2022 Time: 19:28 Bed 19 Private MD: ED Physician Caio Cruz HPI: 03/25 19:49 This 72 yrs old Male presents to ER via Wheelchair with complaints of left john paul side weakness arm, leg , face. 19:49 The patient's problem is reported as difficulty walking, paresthesias, in left upper john paul extremity, in left lower extremity, in left side of face. Onset: The symptoms/episode began/occurred at 18:15. Duration: This was a single incident, The episode is continuous. Context: the episode(s) was witnessed, by family, son. The symptoms are alleviated by nothing. The symptoms are aggravated by nothing. Associated signs and symptoms: The patient has no apparent associated signs or symptoms. Severity of symptoms: At their worst the symptoms were moderate in the emergency department the symptoms are unchanged. Patient's baseline: Neuro: alert and fully oriented. The patient has not experienced similar symptoms in the past. Historical: - Allergies: 19:36 Codeine; jh5 - PMHx: 19:36 Cholelithiasis; COPD; CVA; Dementia; enlarged prostate; Hernia; Hypertension; PR; PVD; jh5 TIA; - Immunization history:: Adult Immunizations up to date. - Social history:: Smoking status: Patient reports the use of cigarette tobacco products, smokes one-half pack cigarettes per day. - Family history:: not pertinent. ROS: 19:49 Constitutional: Negative for fever, chills, and weight loss, Eyes: Negative for injury, john paul pain, redness, and discharge, ENT: Negative for injury, pain, and discharge, Neck: Negative for injury, pain, and swelling, Cardiovascular: Negative for chest pain, palpitations, and edema, Respiratory: Negative for shortness of breath, cough, wheezing, and pleuritic chest pain, Abdomen/GI: Negative for abdominal pain, nausea, vomiting, diarrhea, and constipation, Back: Negative for injury and pain, : Negative for injury, bleeding, discharge, and swelling, Skin: Negative for injury, rash, and discoloration, Psych: Negative for depression, anxiety, suicide ideation, homicidal ideation, and hallucinations, Allergy/Immunology: Negative for hives, rash, and allergies, Endocrine: Negative for neck swelling, polydipsia, polyuria, polyphagia, and marked weight changes, Hematologic/Lymphatic: Negative for swollen nodes, abnormal bleeding, and unusual bruising. 19:49 MS/extremity: Positive for decreased range of motion, of the left arm and left leg. 19:49 Neuro: Positive for weakness, of the left arm and left leg. Exam: 19:49 Radiologist reports: negative john paul 19:49 Constitutional: This is a well developed, well nourished patient who is awake, alert, and in no acute distress. Head/Face: Normocephalic, atraumatic. Eyes: Pupils equal round and reactive to light, extra-ocular motions intact. Lids and lashes normal. Conjunctiva and sclera are non-icteric and not injected. Cornea within normal limits. Periorbital areas with no swelling, redness, or edema. ENT: Nares patent. No nasal discharge, no septal abnormalities noted. Tympanic membranes are normal and external auditory canals are clear. Oropharynx with no redness, swelling, or masses, exudates, or evidence of obstruction, uvula midline. Mucous membranes moist. Neck: Trachea midline, no thyromegaly or masses palpated, and no cervical lymphadenopathy. Supple, full range of motion without nuchal rigidity, or vertebral point tenderness. No Meningismus. Chest/axilla: Normal chest wall appearance and motion. Nontender with no deformity. No lesions are appreciated. Cardiovascular: Regular rate and rhythm with a normal S1 and S2. No gallops, murmurs, or rubs. Normal PMI, no JVD. No pulse deficits. Respiratory: Lungs have equal breath sounds bilaterally, clear to auscultation and percussion. No rales, rhonchi or wheezes noted. No increased work of breathing, no retractions or nasal flaring. Abdomen/GI: Soft, non-tender, with normal bowel sounds. No distension or tympany. No guarding or rebound. No evidence of tenderness throughout. Back: No spinal tenderness. No costovertebral tenderness. Full range of motion. Male : Normal genitalia with no discharge or lesions. Skin: Warm, dry with normal turgor. Normal color with no rashes, no lesions, and no evidence of cellulitis. Psych: Awake, alert, with orientation to person, place and time. Behavior, mood, and affect are within normal limits. 19:49 Musculoskeletal/extremity: ROM: limited active range of motion, in the left arm and left leg, Circulation is intact in all extremities. Sensation intact. Compartment Syndrome exam of affected extremity: is normal. Weight bearing: is unable to bear weight, DVT Exam: No signs of deep vein thrombosis. no pain, no swelling, no tenderness, negative Homans' sign noted on exam, no appreciated bluish discoloration, no erythema, no increased warmth. 19:49 Neuro: Orientation: is normal, appropriate for stated age, no acute changes, Mentation: slow to respond, Memory: is normal, appropriate for stated age, no acute changes, Cranial nerves: facial droop noted on left, with forehead spared. Motor: moves all fours, Strength is 3/5 in the left arm and left leg, Sensation: is normal, Gait: not tested. seizure activity, is not displayed by the patient. 20:40 ECG was reviewed by the Attending Physician. [facility] 03/26 00:28 ECG was reviewed by the Attending Physician. [facility] Vital Signs: 03/25 19:33 BP 187 / 70; Pulse 79; Resp 18; Temp 98.7; Pulse Ox 100% ; Weight 63.5 kg; Height 5 ft. 5 9 in. (175.26 cm); Pain 0/10; 19:35 BP 168 / 70; Pulse 68; Resp 22; Pulse Ox 100% ; vc1 20:30 BP 133 / 68; Pulse 64; Resp 24; Pulse Ox 100% ; vc1 21:45 BP 150 / 84; Pulse 69; Resp 22; Pulse Ox 100% ; vc1 22:15 BP 156 / 65; Pulse 63; Resp 24; Pulse Ox 100% ; vc1 23:30 BP 147 / 63; Pulse 60; Resp 16; Pulse Ox 100% on 2 lpm NC; vc1 19:33 Body Mass Index 20.67 (63.50 kg, 175.26 cm) 5 NIH Stroke Scale Scores: 20:02 NIHSS Score: 6 jonh paul 20:58 NIHSS Score: 8 vc1 [place] Coma Score: 20:02 Eye Response: spontaneous(4). Verbal Response: oriented(5). Motor Response: obeys [facility] commands(6). Total: 15. MDM: 19:32 Patient medically screened. [facility] 19:54 Data reviewed: vital signs, nurses notes, EMS record, lab test result(s), EKG, [facility] radiologic studies, CT scan, plain films. Consideration of Admission/Observation Patient was admitted/placed on observation. Escalation of care including admission/observation considered. Management of patient was discussed with the following: Ep Tech: neuro slh, nicu. I considered the following discharge prescriptions or medication management in the emergency department Medications were administered in the Emergency Department. See MAR. Independent interpretation of the following test(s) in the Emergency Department EKG: See my EKG interpretation above retrimmer: rate is 79 beats/min, Rhythm is regular. Test considered but Not performed: MRI: mri not available. Care significantly affected by the following chronic conditions: Diabetes. 03/25 19:30 Order name: Basic Metabolic Panel; Complete Time: 20:38 [facility] 03/25 19:30 Order name: CBC with Diff; Complete Time: 20:38 [facility] 03/25 19:30 Order name: High Sensitivity Troponin; Complete Time: 20:38 [facility] 03/25 19:30 Order name: Protime (+inr); Complete Time: 20:38 [facility] 03/25 19:30 Order name: Ptt, Activated; Complete Time: 20:38 [facility] 03/25 19:48 Order name: SARS RAPID; Complete Time: 20:38 [facility] 03/25 19:30 Order name: CT Stroke Brain w/o Contrast [facility] 03/25 19:30 Order name: Stroke CXR 1 View; Complete Time: 20:38 [facility] 03/25 19:34 Order name: Ct Stroke Brain Wo Cont; Complete Time: 20:38 [facility] 03/25 19:43 Order name: CT Head Angio; Complete Time: 22:54 [facility] 03/25 19:43 Order name: CT Neck Angio; Complete Time: 22:54 [facility] 03/25 19:30 Order name: EKG; Complete Time: 19:31 [facility] 03/25 19:30 Order name: Accucheck; Complete Time: 19:37 [facility] 03/25 19:30 Order name: Cardiac monitoring; Complete Time: 20:18 [facility] 03/25 19:30 Order name: EKG - Nurse/Tech; Complete Time: 20:30 [facility] 03/25 19:30 Order name: IV Saline Lock; Complete Time: 20:19 [facility] 03/25 19:30 Order name: Labs collected and sent; Complete Time: 20:19 vc1 03/25 19:30 Order name: NPO; Complete Time: 19:38 vc1 03/25 19:30 Order name: O2 Per Protocol; Complete Time: 20:19 vc1 03/25 19:30 Order name: O2 Sat Monitoring; Complete Time: 20:19 vc1 03/25 19:30 Order name: Stroke Swallow Screen; Complete Time: 22:56 vc1 03/25 21:58 Order name: EKG; Complete Time: 21:59 john paul 03/25 21:58 Order name: EKG - Nurse/Tech; Complete Time: 22:55 john paul EC:40 Rate is 61 beats/min. Rhythm is regular. QRS [place] is Normal. OH interval is normal. QRS john paul interval is normal. QT interval is normal. No Q waves. T waves are Normal. No ST changes noted. Clinical impression: Abnormal EKG without significant change and No evidence of ischemia. Interpreted by me. Reviewed by me. 03/26 00:28 Rate is 64 beats/min. Rhythm is regular. QRS [place] is Normal. OH interval is normal. QRS john paul interval is normal. QT interval is normal. No Q waves. T waves are Normal. No ST changes noted. Clinical impression: Abnormal EKG without significant change and No evidence of ischemia. Interpreted by me. Reviewed by me. Administered Medications: 03/25 20:16 Drug: NS 0.9% 1000 ml Route: IV; Rate: 1 bolus; Site: right antecubital; 5 21:17 Follow up: IV Status: Completed infusion; IV Intake: 1000ml vc1 20:16 Drug: foLIC Acid 1 mg Route: IVPB; Site: right antecubital; 5 20:17 Follow up: Response: No adverse reaction; IV Status: Completed infusion vc1 22:30 Drug: Eliquis (apixaban) 5 mg {Note: made into paste.} Route: PO; vc1 23:01 Follow up: Response: No adverse reaction vc1 22:30 Drug: Pepcid (famotidine) 20 mg Route: IVP; Site: right antecubital; vc1 23:01 Follow up: Response: No adverse reaction vc1 Disposition Summary: 03/25/22 19:57 Transfer Ordered Transfer Location: [facility] john paul Reason: Higher level of care john paul Condition: Fair john paul Problem: new john paul Symptoms: have improved john paul Accepting Physician: to tahir(03/26/22 00:34) vc1 Diagnosis - Cerebral infarction, unspecified - left side weakness, acute john paul - longterm (current) use of anticoagulants - gabriella john paul - Anemia, unspecified john paul Forms: - Medication Reconciliation Form john paul - SBAR form john paul NIH Stroke Scale - NIH Stroke Score Date: 03/25/2022 Time: 20:02 Total Score = 6 1a. Level of Consciousness (LOC) - 0(Alert) 1b. Level of Consciousness (LOC) (Month \T\ Age) - 0(Both) 1c. LOC Commands (Open \T\ Closes Eyes/Mysql Dba) - 0(Both) 2. Best Gaze (Lateral Gaze Paresis) - 0(Normal) 3. Visual Field Loss - 0(No visual loss) 4. Facial Palsy - 1(Minor Paralysis) 5a. Left Arm: Motor (10-second hold) - 1(Drift) 5b. Right Arm: Motor (10-second hold) - 0(No drift) 6a. Left Leg: Motor (5-second hold - always test supine) - 1(Drift) 6b. Right Leg: Motor (5-second hold - always test supine) - 0(No drift) 7. Limb Ataxia (finger/nose \T\ heel/del valle - test with eyes open) - 2(Present in two limbs) 8. Sensory Loss (pinprick arms/legs/face) - 1(Mild to moderate loss) 9. Best Language: Aphasia (description/naming/reading) - 0(No aphasia) 10. Dysarthria (speech clarity - read or repeat words) - 0(Normal) 11. Extinction and Inattention (visual/tactile/auditory/spatial/personal) - 0(No abnormality) Initials: john paul NIH Stroke Scale - NIH Stroke Score Date: 03/25/2022 Time: 20:58 Total Score = 8 1a. Level of Consciousness (LOC) - 1(Not Alert) 1b. Level of Consciousness (LOC) (Month \T\ Age) - 1(One) 1c. LOC Commands (Open \T\ Closes Eyes/Mysql Dba) - 0(Both) 2. Best Gaze (Lateral Gaze Paresis) - 0(Normal) 3. Visual Field Loss - 0(No visual loss) 4. Facial Palsy - 0(Normal) 5a. Left Arm: Motor (10-second hold) - 1(Drift) 5b. Right Arm: Motor (10-second hold) - 0(No drift) 6a. Left Leg: Motor (5-second hold - always test supine) - 2(Drift, some effort against gravity) 6b. Right Leg: Motor (5-second hold - always test supine) - 0(No drift) 7. Limb Ataxia (finger/nose \T\ heel/del valle - test with eyes open) - 0(Absent) 8. Sensory Loss (pinprick arms/legs/face) - 2(Severe to total loss) 9. Best Language: Aphasia (description/naming/reading) - 0(No aphasia) 10. Dysarthria (speech clarity - read or repeat words) - 0(Normal) 11. Extinction and Inattention (visual/tactile/auditory/spatial/personal) - 1(Present) Initials: vc1 Signatures: Dispatcher [employer] EDCaio Johnson MD MD cha Rees, Jessica RN RN jh5 Vandana Nelson RN RN vc1 Corrections: (The following items were deleted from the chart) 20:39 19:57 to [facility] 23:55 20:49 Home Meds: memantine 10 mg oral tab 1 tab 2 times per day; 1 vc1 23:55 20:49 Home Meds: simvastatin 10 mg Oral tab once daily; vc1 vc1 03/26 00:34 03/25 20:39 to [place] [id number]
--- OUTSIDE RECORDS SUMMARY | 2022-03-25 20:03 | XMS REPORT | Continuity of Care Document ---
:1950 Author Organization [facility] t Address [address] [place] [address] Support Name Relationship Address Phone ACACIA PENA CH [address] [place] [address] [place] [address] [place] [place] [address] CATHY MOREJON Sister Unavailable Unavailable MD CLINT FERRER Primary Care Physician [address] [facility] [address] [place] [address] MD DEEPAK ED [facility] Emergency Provider [address] [place] [address] ACACIA PENA [address] [phone] [place] [address] Acacia Pena [address] [place] [address] [address] Pena [address] [phone] [place] [address] ACACIA PENA [address] [place] [address] Maurice Pena, Child [address] [phone] [place] [address] Care Team Providers Name Role Phone Clint Ferrer Primary Care Physician SEBASTIAN SHIPLEY Attending Clinician Unavailable Jessica Coley RN Attending Clinician Unavailable KEREN GARCIA Attending Clinician Unavailable Shruthi Albert MD Attending Clinician Keren Garcia DO Attending Clinician BETH OBRIEN Attending Clinician Unavailable Leeanne Hawley MD Attending Clinician Beth Obrien MD Attending Clinician ТАТЬЯНА WILSON Attending Clinician Unavailable Татьяна Wilson Attending Clinician Doctor Unassigned, Canyon Day Attending Clinician Unavailable Lab, Ang - Db Attending Clinician Unavailable Froy Valverde MD Attending Clinician FROY VALVERDE Attending Clinician Unavailable FROY VALVERDE Attending Clinician Unavailable Melisa EDOUARD, Mabel Celeste Attending Clinician Unavailable ESTEBAN GRIMALDO Attending Clinician Unavailable Tunde Gamez DO Attending Clinician Esteban Grimaldo MD Attending Clinician MANISHA SIDHU Attending Clinician Unavailable Richi Castellon DO Attending Clinician Mariajose Garcia MD Attending Clinician [phone] FAUSTINO MARCOS Attending Clinician Unavailable Faustino Marcos MD Attending Clinician LEEANNE HAWLEY Attending Clinician Unavailable Rajendra Buenrostro Attending Clinician Jorgito Ortiz Attending Clinician Sigifredo [...] Clinician Unavailable SEBASTIAN SHIPLEY Admitting Clinician Unavailable SHRUTHI ALBERT Admitting Clinician Unavailable BETH OBRIEN Admitting Clinician Unavailable Camille SPENCER, Beth Admitting Clinician ТАТЬЯНА WILSON Admitting Clinician Unavailable Татьяна Wilson Admitting Clinician TUNDE GAMEZ Admitting Clinician Unavailable Tunde Gamez DO Admitting Clinician Mariajose Garcia MD Admitting Clinician [phone] FAUSTINO MARCOS Admitting Clinician Unavailable LEEANNE HAWLEY [...] Policy Number Effective Date Expiration Date S [facility] [id number] 2019 DUAL COMPLETE HMO 00:00:00 [facility] [id number] 2011 00:00:00 2 M [id number] 2 C [id number] Problems Condition Condition Condition Status Onset Resolution Last Treating Co mments Source Name Details Category Date Date Treatment Clinician Date Blurring, Blurring, Disease Active Uni vers right eye right eye 03-13 ity of 00:00: [place] 00 Medical Branch STEMI STEMI Diagnosis Active 2021-032022-03-03 Mem oria Active 04-29 16:29:00 l 02/26/2022 00:00: Eric TERRY [address] Center 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 0-05 ity of disease disease 00:00: [place] involving involving 00 Medi wa[place] coronary coronary artery of artery of [place] heart heart without without angina angina pectoris pectoris Bilateral Bilateral Disease Active 2021-03 Uni vers carotid carotid 0-05 ity of artery artery 00:00: [place] stenosis stenosis 00 Medica l Branch Pulmonary Pulmonary Disease Active 2021-03 Uni vers hypertensi hypertensi 0-05 it y of on on 00:00: [place] [facility] Elevated Elevated Disease Active 2021-03 Unive rs brain brain 0-05 ity of natriure[place] c peptide c peptide 00 Medi waqar (BNP) (BNP) Branch level level E44.0 E44.0 Disease Active 2021-03 Univers Moderate Moderate 0-05 ity of protein protein 00:00: [place] calorie calorie 00 Medical malnutriti malnutriti Br anch on on COPD COPD Disease Active 2021-03 Univers exacerbati exacerbati 0-04 it y of on on 00:00: [place] [facility] Slurring Slurring Disease Active Unive rs of speech of speech 9-21 ity of 00:00: [place] [facility] Chest pain Chest pain Disease Active U nivers 9-20 ity of 00:00: [place] [facility] Left-sided Left-sided Disease Active U nivers weakness weakness 9-19 ity of 00:00: [place] [facility] Stroke-lik Stroke-lik Disease Active U nivers e symptom e symptom 9-19 ity of 00:00: [place] 00 [facility] Branch CHEST PAIN CHEST Diagnosis Active 2021-06-04 Memoria PAIN 3-25 21:47:00 l Active 00:00: Tan[place] 05/30/2021 00 [facility] [place],[facility] OTHER OTHER Diagnosis Active 2021-04-04 [facility] CHEST PAIN CHEST PAIN 1-30 21:44:00 l Active 00:00: Tanvir 04/06/2021 00 [facility] Leg pain Leg pain Disease [facility] PVD PVD Disease Active [facility] (periphera (periphera 1-30 Manuela kes l vascular l vascular 00:00: Me dical disease) disease) 00 Center ALCIDES ALCIDES Diagnosis Active 2017-032017-12-28 Memoria BILLING BILLING 0-23 15:05:00 l Active 00:00: Tanvir 12/28/2017 00 [facility] CVA CVA Diagnosis Active 2017-032017-12-28 Mem oria Active 20:41:00 l 12/28/2017 00:00: Eric n [facility] 00 Medical Center Ischemic Ischemic Disease Active [facility] stroke stroke 11-30 00:00: Medical 00 Center S/P admn S/P admn Disease Active [facility] t tPA in tPA in 11-30kes diff fac diff fac 00:00: Medica l w/n last w/n last 00 Center 24 hr bef 24 hr bef adm to adm to crnt fac crnt fac Essential Essential Disease Active [facility] hypertensi hypertensi 03-12 Manuela kes on on 00:00: Medical 00 Center Received Received Disease Active [facility] tissue tissue 03-12 [facility] plasminoge plasminoge 00:00: Ut dical n n 00 Center activator activator (t-PA) (t-PA) less than less than 24 hours 24 hours prior to prior to arrival arrival Acute Acute Disease Active [facility] ischemic ischemic 03-11 [facility] stroke stroke 00:00: Medical 00 Center HLD HLD Disease Active 2015-[address] (hyperlipi (hyperlipi 03-18 Manuela kes demia) demia) 00:00: Medical 00 [place] Peripheral Peripheral Disease Active 2015-[address] vascular vascular 03-15 [facility] disease disease 00:00: Medical 00 [place] Postoperat Postoperat Disease Active 2015-[address] cody anemia cody anemia 03-15 Manuela kes 00:00: Medical 00 [place] Coronary Coronary Disease Active 2015-03 [facility] artery artery 03-11 [facility] disease disease 00:00: Medical involving involving 00 Cent er [place] coronary coronary artery artery PAD PAD Disease Active 2015-[address] (periphera (periphera 03-11 [place] kes l artery l artery 00:00: Medica l disease) disease) 00 Center HTN HTN Disease Active 2015-[address] (hypertens (hypertens 03-11 Manuela kes ion) ion) 00:00: Medical 00 Center Iliac Iliac Disease Active 2015-[address] artery artery 03-11 [facility] stenosis, stenosis, 00:00: Medi waqar bilateral bilateral 00 Cent er Unstable Unstable Disease Active 2015-03 [facility] angina angina 03-11 [facility] 00:00: Medical 00 [place] COPD COPD Disease Active 2015-[address] [facility] (chronic (chronic 03-11 [facility] obstructiv obstructiv 00:00: Ut dical e e 00 Center pulmonary pulmonary disease) disease) Tobacco Tobacco Disease Active 2015-[address] [facility] abuse abuse - [facility] 00:[facility]: Medical 00 Center ACS (acute ACS (acute Disease Active 2015-[address] coronary coronary 03-11 [facility] syndrome) syndrome) 00:00: [facility] waqar 00 Center No known No known Disease Unive rs active active ity of problems problems [facility] Peripheral Periphera Problem 2018-07-19 Memoria vascular l vascular 12:57:08 l disease, disease, Eric n unspecifie unspecifie d d 07/19/2018 [facility] 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 2018-07-19 Memor 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 He rmann 07/19/2018 [facility] Presence Presence Problem 2018-07-19 Memoria of of 12:57:08 l coronary coronary Eric n angioplast angioplast y implant y implant and graft and graft 07/19/2018 [facility] Personal Personal Problem 2018-07-19 Memoria history of history of 12:57:08 l other other [place] malignant malignant neoplasm neoplasm of skin of skin 07/19/2018 [facility] Amnesia Amnesia Problem Active 2022-03-02 Me moridestinee (finding) (finding) 23:55:35 l Active [place] Problem 03/02/2022 [facility] Cardiac Cardiac Problem Active 2022-03-02 Me anat pacemaker pacemaker 23:55:35 l in situ in situ [place] (finding) (finding) Active Problem 03/02/2022 [facility] Cerebrovas Cerebrova Problem Active 2022-03-02 Memoria cular scular 23:55:35 l accident accident Eric n (disorder) (disorder) Active Problem 03/02/2022 [facility] Coronary Coronary Problem Active 2022-03-02 Memoria arterioscl arterioscl 23:55:35 l erosis erosis [place] (disorder) (disorder) Active Problem 03/02/2022 [facility] Dementia Dementia Problem Active 2022-03-02 Memoria (disorder) (disorder) 23:55:35 l Active [place] Problem 03/02/2022 [facility] Dyslipidem Dyslipide Problem Active 2022-03-02 Memoria ia cristofer 23:55:35 l (disorder) (disorder) He rmann Active Problem 03/02/2022 [facility] Gastroesop Gastroeso Problem Active 2022-03-02 Memoria hageal phageal 23:55:35 l reflux reflux [place] disease disease (disorder) (disorder) Active Problem 03/02/2022 [facility] Peripheral Periphera Problem Active 2022-03-02 Memoria arterial l arterial 23:55:35 l disease disease Tanvir Active Problem 03/02/2022 [facility] Tremor Tremor Problem Active 2022-03-02 [place] to (finding) (finding) 23:55:35 l Active [place] Problem 03/02/2022 [facility] Nicotine Nicotine Problem 2018-07-19 Memoria dependence dependence 12:57:08 l , , [place] cigarettes cigarettes , , uncomplica uncomplica jw jw 07/19/2018 [facility] Presence Presence Problem 2018-07-19 Memoria of cardiac of cardiac 12:57:08 l pacemaker pacemaker Herm radha 07/19/2018 [facility] Other long Other Problem 2018-07-19 M emoria 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 12:57:08 l (current) (current) Herm radha drug drug therapy therapy 07/19/2018 [facility] senior care senior care Problem 2018-07-19 Memoria (current) (current) 12:57:08 l use of use of [place] aspirin aspirin 07/19/2018 [facility] 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 intermediate Problem 2018-07-19 Memoria (current) (current) 12:57:08 l use of use of [place] antithromb antithromb otics/anti otics/anti platelets platelets 07/19/2018 [facility] CHEST CHEST Diagnosis Active 2018-02-21 Mem oria PAIN, PAIN, 15:18:00 l UNSPECIFIE UNSPECIFIE He [place] D D Active [facility] Other Other Problem 2018-07-19 Memor ia chest pain chest pain 12:57:08 l Eric n 9 [facility] Unspecifie Unspecifi Problem 2018-07-19 Memoria d atrial ed atrial 12:57:08 l fibrillati fibrillati He rmann on on 07/19/2018 [facility] Essential Essential Problem 2018-07-19 Memoria (primary) (primary) 12:57:08 l hypertensi hypertensi He rmann on on 07/19/2018 [facility] 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 12:57:08 l heart heart [place] disease of disease of [place] coronary coronary artery artery without without angina angina pectoris pectoris 07/19/2018 [facility] 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, disorder, Herm radha single single episode, episode, unspecifie unspecifie d d 07/19/2018 [facility] Personal Personal Problem 2018-07-19 Memoria history of history of 12:57:08 l transient transient Herm radha ischemic ischemic attack attack (TIA), and (TIA), and cerebral cerebral infarction infarction without without residual residual deficits deficits 07/19/2018 [facility] History of Past Illness Condition Condition Condition Status Onset Resolution Last Treating Co mments Source Name Details Category Date Date Treatment Clinician Date Syncope Syncope Problem 2017-032018-07-19 2018-07-19 Memoria and and 0-31 12:57:08 12:57:08 l collapse collapse 03:09: Eric n 01/05/2018 00 07/19/2018 [facility] Allergies, Adverse Reactions, Alerts Allergy Allergy Status Severity Reaction(s) Onset Inactive Treating Comm ents Source Name Type Date Date Clinician No Known NA Active 2020-0 [facility] 21:54: l 26 ([facility] nt) No Known NA Active 2020-0 [facility] Allergie 05-14 [facility]ospita [facility] 13:20: l 51 ([facility]) No Known NA Active 2020-0 [facility] Allergie 05-14 Hospita s 13:20: l 46 ([facility] nt) No known Miscella Active U Not 2020-0 [facility] Specified 05-14 Hospita Allergie Allergy 10:56: l s 12 ([facility]) Denies Miscella Active U Not 2020-0 [facility] latex neous Specified 3-09 Hospita allergy Allergy 10:56: l 12 ([facility]) No known Miscella Active U Not 2020-0 [facility] drug neous Specified 3-09 Hospita Allergie Allergy 10:56: l s 12 ([facility]) Denies Miscella Active U Not 2020-0 [facility] latex neous Specified 3-09 Hospita allergy Allergy 10:56: l 12 ([facility]) Denies Miscella Active U Not 2020-0 [facility] latex neous Specified 3-09 Hospita allergy Allergy 10:56: l 12 ([facility]) No known Miscella Active U Not 2020-0 [facility] drug neous Specified 3-07 Hospita Allergie Allergy 21:36: l s 06 ([facility]) Denies Miscella Active U Not 2020-0 [facility] latex neous Specified 3-07 Hospita allergy Allergy 21:36: l 06 ([facility]) No known Miscella Active U Not 2020-0 [facility] drug neous Specified 3-07 Hospita Allergie Allergy 21:36: l s 06 ([facility]) Denies Miscella Active U Not 2020-0 [facility] latex neous Specified 3-07 Hospita allergy Allergy 21:36: l 06 ([facility]) No known Miscella Active U Not 2020-0 [facility] t drug neous Specified 3-07 Hospita Allergie Allergy 21:36: l s 06 ([facility]) Denies Miscella Active U Not 2020-0 [facility] latex neous Specified 3-07 Hospita allergy Allergy 21:36: l 06 ([facility]) No known Miscella Active U Not 2020-0 [facility] drug neous Specified 3-07 Hospita Allergie Allergy 21:36: l s 06 ([facility]) Denies Miscella Active U Not 2020-0 [facility] latex neous Specified 3-07 Hospita allergy Allergy 21:36: l 06 ([facility]) No known Miscella Active U Not 2020-0 Baptis [facility] drug neous Specified 3-07 Hospita Allergie Allergy 21:36: l s 06 ([facility]) Denies Miscella Active U Not 2020-0 [facility] latex neous Specified 3-07 Hospita allergy Allergy 21:36: l 06 ([facility]) No known Miscella Active U Not 2020-0 [facility] drug neous Specified 3-07 Hospita Allergie Allergy 21:36: l s 06 ([facility]) Denies Miscella Active U Not 2020-0 [facility] latex neous Specified 3-07 Hospita allergy Allergy 21:36: l 06 ([facility]) No known Miscella Active U Not 2020-0 [facility] drug neous Specified 3-07 Hospita Allergie Allergy 21:36: l s 06 ([facility]) Denies Miscella Active U Not 2020-0 [facility] latex neous Specified 3-07 Hospita allergy Allergy 21:36: l 06 ([facility]) No known Miscella Active U Not 2020-0 Baptis t drug neous Specified 3-07 Hospita Allergie Allergy 21:36: l s 06 ([facility]) Denies Miscella Active U Not 2020-0 [facility] latex neous Specified 3-07 Hospita allergy Allergy 21:36: l 06 ([facility]) No known Miscella Active U Not 2020-0 Baptis t drug neous Specified 3-07 Hospita Allergie Allergy 21:36: l s 06 ([facility]) Denies Miscella Active U Not 2020-0 [facility] latex neous Specified 3-07 Hospita allergy Allergy 21:36: l 06 ([facility]) No known Miscella Active U Not 2020-0 Baptis t drug neous Specified 3-07 Hospita Allergie Allergy 21:36: l s 06 ([facility]) Denies Miscella Active U Not 2020-0 [facility] latex neous Specified 3-07 Hospita allergy Allergy 21:36: l 06 ([facility]) No known Miscella Active U Not 2020-0 Baptis t drug neous Specified 3-07 Hospita Allergie Allergy 21:36: l s 06 ([facility]) Denies Miscella Active U Not 2020-0 [facility] latex neous Specified 3-07 Hospita allergy Allergy 21:36: l 06 ([facility]) No known Miscella Active U Not 2020-0 Baptis t drug neous Specified 3-07 Hospita Allergie Allergy 21:36: l s 06 ([facility]) Denies Miscella Active U Not 2020-0 [facility] latex neous Specified 05-12 Hospita allergy Allergy 21:36: l 06 ([facility]) No known Miscella Active U Not 2020-0 Baptis t drug neous Specified 05-12 Hospita Allergie Allergy 21:36: l s 06 ([facility]) Denies Miscella Active U Not 2020-0 [facility] latex neous Specified 05-12 Hospita allergy Allergy 21:36: l 06 ([facility]) No known Miscella Active U Not 2020-0 Baptis t drug neous Specified 05-12 Hospita Allergie Allergy 17:44: l s 59 ([facility]) Denies Miscella Active U Not 2020-0 [facility] latex neous Specified 05-12 Hospita allergy Allergy 17:44: l 59 ([facility]) No known Miscella Active U Not 2020-0 Baptis t drug neous Specified 05-12 Hospita Allergie Allergy 17:44: l s 59 ([facility]) Denies Miscella Active U Not 2020-0 [facility] latex neous Specified 05-12 Hospita allergy Allergy 17:44: l 59 ([facility]) No known Miscella Active U Not 2020-0 Baptis t drug neous Specified 05-12 Hospita Allergie Allergy 17:44: l s 59 ([facility]) Denies Miscella Active U Not 2020-0 [facility] latex neous Specified 05-12 Hospita allergy Allergy 17:44: l 59 ([facility]) No Known NA Active 2020-0 [facility] Allergie 05-12 Hospita s 17:44: l 54 ([facility]) No Known NA Active 2020-0 [facility] Allergie 05-12 Hospita s 16:40: l 57 ([facility]) NO KNOWN Allergy Active [facility] NO KNOWN Drug Active Univers ALLERGIE Class ity of S [facility] Family History Family Member Diagnosis Comments Start Date Stop Date Source Natural father Tuberculosis [facility] Natural mother Cancer [facility] Natural mother Heart disease [facility] Social History Social Habit Start Date Stop Date Quantity Comments Source History of tobacco Cigarette Smoker University of use [place] [facility] History SDOH Social Unive rsity of Connections Get [place] Med ical Together Branch History SDOH Social Unive rsity of Connections [facility] [place] [facility] History SDOH Social Unive rsity of Connections [place] [facility] Membership Branch History SDOH Social Unive rsity of Connections [place] [facility] Meetings Branch Exposure to 2022-03-05 2022-03-15 Not sure University of SARS-CoV-2 (event) 00:00:00 17:49:00 [place] [facility] History SDOH 2022-03-11 2022-03-11 [...] Unive rsity of Connections Phone 00:00:00 00:00:00 [place] M edical Branch History SDOH Social 2022-03-11 2022-03-11 5 Unive rsity of Connections Living 00:00:00 00:00:00 [place] [facility] History SDOH 2022-03-11 2022-03-11 0 University o f Physical Activity 00:00:00 00:00:00 [place] M edical DPW Branch History SDOH 2022-03-11 2022-03-11 0 University o f Physical Activity 00:00:00 00:00:00 [place] M edical MPS Branch History SDOH 2022-03-11 2022-03-11 [...] University o f Transport Non-Med 00:00:00 00:00:00 [place] M edical Branch Education 2021-12-09 2021-12-09 10 [facility] 00:00:00 00:00:00 [facility] Social History 2021-05-30 2021-05-30 [facility] Nona wellingtonann 21:10:32 21:10:32 Alcohol intake 2018-04-11 2018-04-[address] [facility] 00:00:00 00:00:00 non-drinker of Medical nter alcohol (finding) Tobacco Comment 2018-04-06 2018-04-06 2 cigarettes [facility] Cigarettes smoked 2017-03-12 2017-03-[address] [facility] current (pack per 00:00:00 00:00:00 [facility] day) - Reported Cigarette 2017-03-12 2017-03-[address] [facility] pack-years 00:00:00 00:00:00 [facility] Tobacco use and 2017-03-12 2017-03-[address] [facility]a kes exposure 00:00:00 00:00:00 [facility] Sex [birth year] At [birth year] [employer] 00:00:00 00:00:00 Hospital Smoking Status Start Date Stop Date Source Tobacco smoking consumption [facility] unknown Tobacco smoking status 2022-02-27 00:39:04 Memlisa Searsann Smokes tobacco daily 2021-11-24 00:00:00 [facility] ity of [facility] Medications Ordered Filled Start Stop Current Ordering Indication Dosage Frequency Signature Comments Components Source Medication Medication Date Date Medication? Clinician (SIG) Name Name lactulose 2022- No 30mL 30 mL, Unive rs (CEPHULAC) 03-16 Oral, ity of solution 30 03:15: 03:17 [place] 1 [place] :00 dose, On Medical 03/15/22 Branch at 2115, LORAINE NaCl 0.9% 2022- No 1000mL at 999 Uni vers (NS) bolus 03-16-09 mL/hr, ity of infusion 01:15: 02:39 1,000 mL, Zac as 1,000 mL 00 :00 IV Medical Infusion, Branch ONCE, 1 dose, On 03/15/22 at 1915, LORAINE ondansetron 2022-0 2022- No 4mg 4 mg, Slow Univers (ZOFRAN 03-16 IV Push, ity of (PF)) 00:30: 00:33 ONCE, 1 [place] injection 4 00 :00 dose, On Medi waqar mg 03/15/22 Branch at 1830, LORAINE ondansetron 2022-0 Yes [id number] 4mg Take 1 Univers 4 mg 1-08 tablet by ity of disintegrat 00:00: mouth [place] ing tablet 00 every 8 Medica l (eight) Branch hours as needed for Nausea and Vomiting (N/V). ondansetron 2022-0 Yes [id number] 4mg Take 1 Univers 4 mg 1-08 tablet by ity of disintegrat 00:00: mouth [place] ing tablet 00 every 8 Medica l (eight) Branch hours as needed for Nausea and Vomiting (N/V). losartan 2022-0 Yes 25mg 25 mg, Univers (COZAAR) 1-06 Oral, ity of tablet 25 15:00: DAILY, [place] mg 00 First dose Medical on Fri Branch 03/13/22 at 0900, Until Discontinu ed, Routine ipratropium 2022-0 Yes .5mg Inhale 0.5 Univers (ATROVENT) 1-06 mg. ity of 0.02 % 14:53: [place] nebulizer 52 Medical solution Branch budesonide- 2022-0 Yes 2{puff} Inhale 2 Univers formoterol 1-06 Puffs 2 ity of (SYMBICORT) 14:53: (two) [place] 160-4.5 52 times Medical mcg/actuati daily. Branch on inhaler topiramate 2022-0 Yes 25mg Take 25 mg U nivers 25 mg 1-06 by mouth ity of tablet 14:53: in the [place] [address] morning Medical and 25 mg Branch in the evening. losartan 25 2022-0 Yes 25mg Take 25 mg Univers mg tablet 1-06 by mouth ity of 14:53: in the [place] [address] morning. Medical Branch donepeziL 5 2022-0 Yes 5mg Take 5 mg U nivers mg tablet 1-06 by mouth ity of 14:53: at [place] [address] bedtime. Medical Branch medical 0 Yes Univers supply, 1-06 ity of miscellaneo 14:53: [facility] (OXYGEN 52 Medical TUBING Branch [facility]) ipratropium 0 Yes .5mg Inhale 0.5 Univers (ATROVENT) 1-06 mg. ity of 0.02 % 14:53: [place] nebulizer 52 Medical solution Branch budesonide- Yes 2{puff} Inhale 2 Univers formoterol 1-06 Puffs 2 ity of (SYMBICORT) 14:53: (two) [place] 160-4.5 52 times Medical mcg/actuati daily. Branch on inhaler topiramate 0 Yes 25mg Take 25 mg U nivers 25 mg 1-06 by mouth ity of tablet 14:53: in the [place] [address] morning Medical and 25 mg Branch in the evening. losartan 25 0 Yes 25mg Take 25 mg Univers mg tablet 1-06 by mouth ity of 14:53: in the [place] [address] morning. Medical Branch donepeziL 5 0 Yes 5mg Take 5 mg U nivers mg tablet 1-06 by mouth ity of 14:53: at [place] [address] bedtime. Medical Branch medical Yes Univers supply, 1-06 ity of miscellaneo 14:53: [facility] (OXYGEN 52 Medical TUBING Branch [facility]) ipratropium 0 Yes .5mg Inhale 0.5 Univers (ATROVENT) 1-06 mg. ity of 0.02 % 14:53: [place] nebulizer 52 Medical solution Branch budesonide- Yes 2{puff} Inhale 2 Univers formoterol 1-06 Puffs 2 ity of (SYMBICORT) 14:53: (two) [place] 160-4.5 52 times Medical mcg/actuati daily. Branch on inhaler topiramate 0 Yes 25mg Take 25 mg U nivers 25 mg 1-06 by mouth ity of tablet 14:53: in the [place] [address] morning Medical and 25 mg Branch in the evening. losartan 25 0 Yes 25mg Take 25 mg Univers mg tablet 1-06 by mouth ity of 14:53: in the [place] [address] morning. Medical Branch donepeziL 5 0 Yes 5mg Take 5 mg U nivers mg tablet 03-13 by mouth ity of 14:53: at [place] 52 bedtime. Medical Branch medical 0 Yes Univers supply, 03-13 ity of miscellaneo 14:53: [place] (OXYGEN 52 Medical TUBING Branch [facility]) METOPROLOL 2022-2022- No 25mg Take 25 mg Univers TARTRATE 03-13 by mouth 2 ity of ORAL 07:26: 00:00 (two) [place] 31 :00 times Medical daily. Branch hydroCHLORO 2022-0 2022- No 25mg Take 25 mg Univers thiazide 25 03-13 by mouth ity of mg tablet 07:26: 00:00 in the [place] 31 :00 morning. Medical Branch tamsulosin 2022-2022- No Take by Uni vers 0.4 mg 24 03-13 mouth ity of hr capsule 07:26: 00:00 daily. [facility] 28 :00 Medical Branch aspirin 81 2022- No 81mg Take 81 mg Univers mg chewable 03-13 by mouth ity of tablet 07:26: 00:00 in the [place] 28 :00 morning. Medical Branch clopidogreL 2022-0 Yes [id number] 150mg Take 2 Univers 75 mg 1-06 tablets by ity of tablet 00:00: mouth in [place] 00 the Medical morning. Branch clopidogreL 0 Yes [id number] 150mg Take 2 Univers 75 mg 1-06 tablets by ity of tablet 00:00: mouth in [place] 00 the Medical morning. Branch clopidogreL 2022-0 Yes [id number] 150mg Take 2 Univers 75 mg 1-06 tablets by ity of tablet 00:00: mouth in [place] 00 the Medical morning. Branch aspirin 325 2022-0 2022- Yes [id number] 325mg Take 1 Univers mg tablet 03-13 tablet by ity of 00:00: 04:59 mouth in [place] 00 :00 the Medical morning Branch for 90 days. atorvastati 2022-2022- Yes [id number] 40mg Take 1 Univers n 40 mg 03-13 tablet by ity of tablet 00:00: 04:59 mouth at [place] 00 :00 bedtime Medical for 90 Branch days. hydroCHLORO 2022- Yes [id number] 12.5mg Take 0.5 Univers thiazide 25 03-13 tablets by i ty of mg tablet 00:00: 04:59 mouth in [place] 00 :00 the Medical morning Branch for 90 days. metoprolol 2022- Yes [id number] 12.5mg Take 0.5 Univers tartrate 25 03-13 tablets by i ty of mg tablet 00:00: 04:59 mouth in [place] 00 :00 the Medical morning Branch and 0.5 tablets in the evening. Do all this for 90 days. aspirin 325 2022- Yes [id number] 325mg Take 1 Univers mg tablet 03-13 tablet by ity of 00:00: 04:59 mouth in [place] 00 :00 the Medical morning Branch for 90 days. atorvastati 2022- Yes [id number] 40mg Take 1 Univers n 40 mg 03-13 tablet by ity of tablet 00:00: 04:59 mouth at [place] 00 :00 bedtime Medical for 90 Branch days. hydroCHLORO 2022- Yes [id number] 12.5mg Take 0.5 Univers thiazide 25 03-13 tablets by i ty of mg tablet 00:00: 04:59 mouth in [place] 00 :00 the Medical morning Branch for 90 days. metoprolol 2022- Yes [id number] 12.5mg Take 0.5 Univers tartrate 25 03-13 tablets by i ty of mg tablet 00:00: 04:59 mouth in [place] 00 :00 the Medical morning Branch and 0.5 tablets in the evening. Do all this for 90 days. aspirin 325 2022- Yes [id number] 325mg Take 1 Univers mg tablet 03-13 tablet by ity of 00:00: 04:59 mouth in [place] 00 :00 the Medical morning Branch for 90 days. atorvastati 2022- Yes [id number] 40mg Take 1 Univers n 40 mg 03-13 tablet by ity of tablet 00:00: 04:59 mouth at [place] 00 :00 bedtime Medical for 90 Branch days. hydroCHLORO 2022- Yes [id number] 12.5mg Take 0.5 Univers thiazide 25 03-13 tablets by i ty of mg tablet 00:00: 04:59 mouth in [place] 00 :00 the Medical morning Branch for 90 days. metoprolol 2022- Yes [id number] 12.5mg Take 0.5 Univers tartrate 25 03-13 tablets by i ty of mg tablet 00:00: 04:59 mouth in [place] 00 :00 the Medical morning Branch and 0.5 tablets in the evening. Do all this for 90 days. tamsulosin 2022- Yes [id number] .4mg Take 1 Univers 0.4 mg 24 03-13 capsule by ity of hr capsule 00:00: 05:59 mouth in [place] 00 :00 the [facility] morning Branch for 30 days. tamsulosin 2022- Yes [id number] .4mg Take 1 Univers 0.4 mg 24 03-13 capsule by ity of hr capsule 00:00: 05:59 mouth in [place] 00 :00 the [facility] morning [place] for 30 days. tamsulosin 2022- Yes [id number] .4mg Take 1 Univers 0.4 mg 24 03-13 capsule by ity of hr capsule 00:00: 05:59 mouth in [place] 00 :00 the [facility] morning [place] for 30 days. aspirin Yes 325mg 325 mg, Univer s tablet 325 03-12 Oral, ity of mg 15:00: DAILY, [place] 00 First dose Medical on [place] Branch 03/12/22 at 0900, Until Discontinu ed, Routine atorvastati Yes 40mg 40 mg, Univ ers n (LIPITOR) 1-05 Oral, QHS, it y of tablet 40 03:00: First dose [place] mg 00 (after Medical last Branch modificati on) on 03/11/22 at 2100, Until Discontinu ed, Routine NaCl 0.9% 2022- No 500mL at 999 Univ ers (NS) bolus -05 01-05 mL/hr, 500 it y of infusion 02:30: 02:12 mL, IV [place] 500 mL 00 :33 Piggyback, Medical ONCE, 1 Branch dose, On 03/11/22 at 2030, LORAINE magnesium 2023-0 2023- No 2g 2 g, IV Univ ers sulfate in 03-12-05 Infusion, ity of water 2 01:42: 06:15 ONCE, 1 [place] gram/50 mL 00 :00 dose, On Medic al (4 %) 2 g Wed03/11/22 Bran ch piggyback at 1945 Saline 2022-0 Yes [id number] 6mL 6 mL, Unive rs Bubble 1-04 Injection, ity of Study 17:11: SEE-INSTRU [place] [facility] on Wed03/11/22 at 1111, Until Discontinu ed, Routine Saline 2022-0 Yes [id number] 6mL 6 mL, Unive rs Bubble 1-04 Injection, ity of Study 17:11: SEE-INSTRU [place] [facility] on Wed03/11/22 at 1111, Until Discontinu ed, Routine sodium 2022-0 Yes 4mL 4 mL, Univers chloride 7% -04 Inhalation it y of (HYPER-SHANE) 15:00: , DAILY, [place] nebulizer 00 First dose Medi waqar solution 4 on Wed [facility] 03/11/22 at 0900, Until Discontinu ed, Routine tamsulosin 2022-0 Yes .4mg 0.4 mg, Univ ers (FLOMAX) 1-04 Oral, ity of capsule 0.4 15:00: DAILY, [place] mg 00 First dose Medical on Wed Branch 03/11/22 at 0900, Until Discontinu ed, Routine clopidogreL 2022-0 Yes 75mg 75 mg, Univ ers (PLAVIX) 75 1-04 Oral, ity of mg tablet 15:00: DAILY, [place] 75 mg 00 First dose Medical on Wed Branch 03/11/22 at 0900, Until Discontinu ed, Routine heparin 2022-0 Yes 5000U 5,000 Univers (porcine) 1-04 Units, ity of injection 14:00: Subcutaneo [place] 5,000 Units 00 us, Q12H, Med ical First dose Branch on Wed03/11/22 at 0800, Until Discontinu ed, Routine topiramate 2022-0 Yes 25mg 25 mg, Unive rs (TOPAMAX) 1-04 Oral, BID, ity of tablet 25 14:00: First dose [place] mg 00 on Wed Medical 03/11/22 at Branch 0800, Until Discontinu ed, Routine
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 member approving Restricted medication : HOME 12 cyclobenzap 2022-0 Yes 5mg 5 mg, Unive rs rine 04 Oral, TID, ity of (FLEXERIL) 14:00: First dose [place] tablet 5 mg 00 on Wed Medica l 03/11/22 at Branch 0800, Until Discontinu ed, Routine NaCl 0.9% 2022-0 Yes 1000mL at 75 Unive rs (NS) IV 1-04 mL/hr, IV ity of infusion 07:00: Infusion, [place] 1,000 mL 00 CONTINUOUS Medic al , Starting Branch on Wed03/11/22 at 0100, Until Discontinu ed, Routine ipratropium 2022-0 Yes 3mL 3 mL, Unive rs -albuteroL 03-11 Inhalation ity of (DUONEB) 06:00: , Q4H, [place] 0.5 mg-3 00 First dose Medic al mg(2.5 mg on Wed base)/3 mL 03/11/22 at nebulizer 0000, solution 3 Until mL Discontinu ed, Routine budesonide- 2022-0 Yes 2{puff} 2 Puff, Univers formoteroL 03-11 Inhalation ity of (SYMBICORT) 06:00: , BID, [place] 160-4.5 00 First dose Medica l mcg/actuati on Wed on inhaler 03/11/22 at 2 Puff 0000, Until Discontinu ed, LORAINE ondansetron 2022-0 Yes 4mg 4 mg, Unive rs (ZOFRAN-ODT 03-11 Oral, ity of ) 05:37: Q4HPRN, [place] disintegrat 03 Starting Medi waqar ing tablet on Wed 4 mg 03/10/22 at 2337, Until Discontinu ed, Routine, Nausea and Vomiting (N/V) aspirin 2022-0 202- No 325mg 325 mg, Unive rs tablet 325 03-11 Oral, ity of mg 02:00: 03:09 ONCE, 1 [place] 00 :00 dose, On Medical Wed03/10/22 Branch at 2000, STAT LORazepam 2022-0 2022- No .5mg 0.5 mg, Univ ers (ATIVAN) 03-11 Slow IV ity of injection 01:15: 00:33 Push, [place] 0.5 mg 00 :00 ONCE, 1 Medical dose, On Branch Wed03/10/22 at 1915, STAT LORazepam 2022- No .5mg 0.5 mg, Univ ers (ATIVAN) 03-10 Slow IV ity of injection 23:00: 22:59 Push, [place] 0.5 mg 00 :00 ONCE, 1 Medical dose, On Branch Wed03/10/22 at 1700, STAT iopamidol 2022- No [id number] 140mL 140 mL, Univers (ISOVUE 03-10 Intravenou ity o f 370-500 mL) 22:40: [...] 1614, Until Discontinu ed, 10 mL aspirin 2021-03 Yes 81 mg = 1 Me moria mg tablet, 2-24 tab, PO, l enteric 16:40: Daily, # Eric n coated 00 30 tab, 3 Refill(s), Pharmacy: [facility] #[id number], 170.18, cm, 02/26/22 18:06:00 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, Height, 62.5, kg, 02/26/22 18:06:00 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, Weight aspirin 2021-03 Yes 81 mg = 1 Me moria mg tablet, 2-24 tab, PO, l enteric 16:40: Daily, # Eric n coated 00 30 tab, 3 Refill(s), Pharmacy: [facility] #[id number], 170.18, cm, 02/26/22 18:06:00 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, Height, 62.5, kg, 02/26/22 18:06:00 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, Weight aspirin 81 2021-03 Yes 81 mg = 1 Me moria mg tablet, 2-24 tab, PO, l enteric 16:40: Daily, # Eric n coated 00 30 tab, 3 Refill(s), Pharmacy: [facility] #[id number], 170.18, cm, 02/26/22 18:06:00 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, Height, 62.5, kg, 02/26/22 18:06:00 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, Weight aspirin 81 2021-03 Yes 81 mg = 1 Me moria mg tablet, 2-24 tab, PO, l enteric 16:40: Daily, # Eric n coated 00 30 tab, 3 Refill(s), Pharmacy: [facility] #[id number], 170.18, cm, 02/26/22 18:06:00 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, Height, 62.5, kg, 02/26/22 18:06:00 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, Weight aspirin 81 2021-03 Yes 81 mg = 1 Me moria mg tablet, 2-24 tab, PO, l enteric 16:40: Daily, # Eric n coated 00 30 tab, 3 Refill(s), Pharmacy: [facility] #[id number], 170.18, cm, 02/26/22 18:06:00 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, Height, 62.5, kg, 02/26/22 18:06:00 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, Weight Plavix 75 2021-03 Yes 75 mg = 1 Mem oria mg oral 2-24 tab, PO, l tablet 16:39: Daily, # [place] 00 30 tab, 0 Refill(s), Pharmacy: [facility] #[id number], 170.18, cm, 02/26/22 18:06:00 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, Height, 62.5, kg, 02/26/22 18:06:00 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, Weight metoprolol 2021-03 Yes 25 mg = 1 Me moria tartrate 25 2-24 tab, PO, l mg oral 16:39: BID, # 60 [place] nn tablet 00 tab, 0 Refill(s), Pharmacy: [facility] #[id number], 170.18, cm, 02/26/22 18:06:00 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, Height, 62.5, kg, 02/26/22 18:06:00 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, Weight Plavix 75 2021-03 Yes 75 mg = 1 Mem oria mg oral 2-24 tab, PO, l tablet 16:39: Daily, # [place] 00 30 tab, 0 Refill(s), Pharmacy: [facility] #[id number], 170.18, cm, 02/26/22 18:06:00 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, Height, 62.5, kg, 02/26/22 18:06:00 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, Weight metoprolol 2021-03 Yes 25 mg = 1 Me moria tartrate 25 2-24 tab, PO, l mg oral 16:39: BID, # 60 [place] nn tablet 00 tab, 0 Refill(s), Pharmacy: [facility] #[id number], 170.18, cm, 02/26/22 18:06:00 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, Height, 62.5, kg, 02/26/22 18:06:00 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, Weight Plavix 75 2021-03 Yes 75 mg = 1 Mem oria mg oral 2-24 tab, PO, l tablet 16:39: Daily, # [place] 00 30 tab, 0 Refill(s), Pharmacy: [facility] #[id number], 170.18, cm, 02/26/22 18:06:00 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, Height, 62.5, kg, 02/26/22 18:06:00 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, Weight metoprolol 2021-03 Yes 25 mg = 1 Me moria tartrate 25 2-24 tab, PO, l mg oral 16:39: BID, # 60 [place] nn tablet 00 tab, 0 Refill(s), Pharmacy: [facility] #[id number], 170.18, cm, 02/26/22 18:06:00 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, Height, 62.5, kg, 02/26/22 18:06:00 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, Weight Plavix 75 2021-03 Yes 75 mg = 1 Mem oria mg oral 2-24 tab, PO, l tablet 16:39: Daily, # [place] 00 30 tab, 0 Refill(s), Pharmacy: [facility] #[id number], 170.18, cm, 02/26/22 18:06:00 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, Height, 62.5, kg, 02/26/22 18:06:00 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, Weight metoprolol 2021-03 Yes 25 mg = 1 Me moria tartrate 25 2-24 tab, PO, l mg oral 16:39: BID, # 60 Eug[place] nn tablet 00 tab, 0 Refill(s), Pharmacy: [facility] #[id number], 170.18, cm, 02/26/22 18:06:00 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, Height, 62.5, kg, 02/26/22 18:06:00 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, Weight Plavix 75 2021-03 Yes 75 mg = 1 Mem oria mg oral 2-24 tab, PO, l tablet 16:39: Daily, # [place] 00 30 tab, 0 Refill(s), Pharmacy: [facility] #[id number], 170.18, cm, 02/26/22 18:06:00 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, Height, 62.5, kg, 02/26/22 18:06:00 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, Weight metoprolol 2021-03 Yes 25 mg = 1 Me moria tartrate 25 2-24 tab, PO, l mg oral 16:39: BID, # 60 Eug[place] nn tablet 00 tab, 0 Refill(s), Pharmacy: [facility] #[id number], 170.18, cm, 02/26/22 18:06:00 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, Height, 62.5, kg, 02/26/22 18:06:00 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, Weight iron 2021-03 No 100 mg, Memoria dextran 2-24 Route: l 15:00: IVPB, Drug [place] 00 form: INJ, Daily, Dosing Weight 62.5, kg, Start date: 02/28/22 9:00:00 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, Duration: 10 doses or times, Stop date: 03/09/22 9:00:00 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 Ferrlecit + 2021-03 No 125 mg, 10 Memoria Sodium 2-24 mL, Route: l Chloride 15:00: IVPB, Drug Her stew[place] 0.9% IV 100 00 form: INJ, mL Daily, Start date: 02/28/22 9:00:00 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, Duration: 8 doses or times, Stop date: 03/07/22 9:00:00 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, Infuse over: 1 hr, 0 iron 2021-03 No 100 mg, Memoria dextran 2-24 Route: l 15:00: IVPB, Drug [place] 00 form: INJ, Daily, Dosing Weight 62.5, kg, Start date: 02/28/22 9:00:00 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, Duration: 10 doses or times, Stop date: 03/09/22 9:00:00 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 Ferrlecit + 2022-1 No 125 mg, 10 Memoria Sodium 2-24 mL, Route: l Chloride 15:00: IVPB, Drug Her [place] 0.9% IV 100 00 form: INJ, mL Daily, Start date: 02/28/22 9:00:00 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, Duration: 8 doses or times, Stop date: 03/07/22 9:00:00 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, Infuse over: 1 hr, 0 iron 2021-1 No 100 mg, Memoria dextran 2-24 Route: l 15:00: IVPB, Drug [place] 00 form: INJ, Daily, Dosing Weight 62.5, kg, Start date: 02/28/22 9:00:00 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, Duration: 10 doses or times, Stop date: 03/09/22 9:00:00 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 Ferrlecit + 2022-1 No 125 mg, 10 Memoria Sodium 2-24 mL, Route: l Chloride 15:00: IVPB, Drug Her [place] 0.9% IV 100 00 form: INJ, mL Daily, Start date: 02/28/22 9:00:00 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, Duration: 8 doses or times, Stop date: 03/07/22 9:00:00 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, Infuse over: 1 hr, 0 iron 2021- No 100 mg, Memoria dextran 2-24 Route: l 15:00: IVPB, Drug [place] 00 form: INJ, Daily, Dosing Weight 62.5, kg, Start date: 02/28/22 9:00:00 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, Duration: 10 doses or times, Stop date: 03/09/22 9:00:00 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 Ferrlecit + 2022-1 No 125 mg, 10 Memoria Sodium 2-24 mL, Route: l Chloride 15:00: IVPB, Drug Her [place] 0.9% IV 100 00 form: INJ, mL Daily, Start date: 02/28/22 9:00:00 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, Duration: 8 doses or times, Stop date: 03/07/22 9:00:00 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, Infuse over: 1 hr, 0 iron 2021-1 No 100 mg, Memoria dextran 2-24 Route: l 15:00: IVPB, Drug [place] 00 form: INJ, Daily, Dosing Weight 62.5, kg, Start date: 02/28/22 9:00:00 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, Duration: 10 doses or times, Stop date: 03/09/22 9:00:00 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 Ferrlecit + 2021-03 No 125 mg, 10 Memoria Sodium 2-24 mL, Route: l Chloride 15:00: IVPB, Drug [place] 0.9% IV 100 00 form: INJ, mL Daily, Start date: 02/28/22 9:00:00 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, Duration: 8 doses or times, Stop date: 03/07/22 9:00:00 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, Infuse over: 1 hr, 0 potassium 2021-03 No /= 14 Memoria chloride 2-24 [place], l 08:31: july [place] 00 dissolve each 20 mEq tablet in 4 oz of water. Allow about 2 minutes for the tablets to disintegra te. Stir before giving to prepare slurry and administer . Please exclude patient's with feeding tube less than 14 [place] (Dobhoff, J-tube, etc) and pediatric and patients. potassium 2021-03 No Notes: Memori a phosphate-s 2-24 (Same as: l odium 08:: Phos-NaK) [place] phosphate 00 Each 1.5 250 mg-280 gm pkt has mg-160 mg 250mg oral powder phosphorou for s. Mix reconstitut w/2.5oz ion water and stir. potassium 2021-03 No Notes: Memori a phosphate 2-24 (Same as: l 08:31: K [place] 00 Phosphate) Infuse over 4 hour. Do not infuse phosphorou s concurrent ly in the same line as TPN or IVF that contains calcium. For double lumen central lines, phosphorou s may be infused in a separate lumen from TPN. sodium 2021-03 No Notes: Memoria phosphate 2-24 Infuse l 08:31: over 4 [place] 00 hour. Do not infuse phosphorou s concurrent ly in the same line as TPN or IVF that contains calcium. For double lumen central lines, phosphorou s may be infused in a separate lumen from TPN. magnesium 2021-03 No Notes: Memori a sulfate 2-24 WASTE: F/P l 08:31: - Sink; E [place] 00 - Municipal Trash Bin magnesium 2021-03 No Notes: Memori a oxide 2-24 (Same as: l 08:31: Mag-Ox [place] 00 400) Magnesium oxide 723kw=872l g elemental magnesium Dose=____m g magnesium oxide [...] 2021-03 No /= 14 Memoria chloride 2-24 [place], l 08:31: july [place] dissolve each 20 mEq tablet in 4 oz of water. Allow about 2 minutes for the tablets to disintegra te. Stir before giving to prepare slurry and administer . Please exclude patient's with feeding tube less than 14 [place] (Dobhoff, J-tube, etc) and pediatric and patients. [...] WASTE: F/P l 08:31: - Sink; E [place] 00 - Municipal Trash Bin magnesium 2021-03 No Notes: Memori a oxide 2-24 (Same as: l 08:31: Mag-Ox [place] 00 400) Magnesium oxide 669ul=373j g elemental magnesium Dose=____m g magnesium oxide [...] 2021-03 No /= 14 Memoria chloride 2-24 [place], l 08:31: july [place] 00 dissolve each 20 mEq tablet in 4 oz of water. Allow about 2 minutes for the tablets to disintegra te. Stir before giving to prepare slurry and administer . Please exclude patient's with feeding tube less than 14 [place] (Dobhoff, J-tube, etc) and pediatric and patients. potassium 2021-03 No Notes: Memori a phosphate-s 2-24 (Same as: l odium 08:31: Phos-NaK) [place] phosphate 00 Each 1.5 250 mg-280 gm pkt has mg-160 mg 250mg oral powder phosphorou for s. Mix reconstitut w/2.5oz ion water and stir. potassium 2021-03 No Notes: Memori a phosphate 2-24 (Same as: l 08:31: K [place] 00 Phosphate) Infuse over 4 hour. Do not infuse phosphorou s concurrent ly in the same line as TPN or IVF that contains calcium. For double lumen central lines, phosphorou s may be infused in a separate lumen from TPN. sodium 2021-03 No Notes: Memoria phosphate 2-24 Infuse l 08:31: over 4 [place] 00 hour. Do not infuse phosphorou s concurrent ly in the same line as TPN or IVF that contains calcium. For double lumen central lines, phosphorou s may be infused in a separate lumen from TPN. magnesium 2021-03 No Notes: Memori a sulfate 2-24 WASTE: F/P l 08:31: - Sink; E [place] 00 - Municipal Trash Bin magnesium 2021-03 No Notes: Memori a oxide 2-24 (Same as: l 08:31: Mag-Ox [place] 00 400) Magnesium oxide 868hw=532i g elemental magnesium Dose=____m g magnesium oxide [...] 2021-03 No /= 14 Memoria chloride 2-24 [place], l 08:31: july [place] 00 dissolve each 20 mEq tablet in 4 oz of water. Allow about 2 minutes for the tablets to disintegra te. Stir before giving to prepare slurry and administer . Please exclude patient's with feeding tube less than 14 [place] (Dobhoff, J-tube, etc) and pediatric and patients. potassium 2021-03 No Notes: Memori a phosphate-s 2-24 (Same as: l odium 08:31: Phos-NaK) [place] phosphate 00 Each 1.5 250 mg-280 gm pkt has mg-160 mg 250mg oral powder phosphorou for s. Mix reconstitut w/2.5oz ion water and stir. potassium 2021-03 No Notes: Memori a phosphate 2-24 (Same as: l 08:31: K [place] 00 Phosphate) Infuse over 4 hour. Do [...] WASTE: F/P l 08:31: - Sink; E [place] 00 - Municipal Trash Bin magnesium 2021-03 No Notes: Memori a oxide 2-24 (Same as: l 08:31: Mag-Ox [place] 00 400) Magnesium oxide 316hw=529d g elemental magnesium Dose=____m g magnesium oxide [...] 2021-03 No /= 14 Memoria chloride 2-24 [place], l 08:31: july [place] 00 dissolve each 20 mEq tablet in 4 oz of water. Allow about 2 minutes for the tablets to disintegra te. Stir before giving to prepare slurry and administer . Please exclude patient's with feeding tube less than 14 [place] (Dobhoff, J-tube, etc) and pediatric and patients. potassium 2021-03 No Notes: Memori a phosphate-s 2-24 (Same as: l odium 08:: Phos-NaK) [place] phosphate 00 Each 1.5 250 mg-280 gm pkt has mg-160 mg 250mg oral powder phosphorou for s. Mix reconstitut w/2.5oz ion water and stir. potassium 2021-03 No Notes: Memori a phosphate 2-24 (Same as: l 08:31: K [place] 00 Phosphate) Infuse over 4 hour. Do [...] WASTE: F/P l 08:31: - Sink; E [place] 00 - Municipal Trash Bin magnesium 2021-03 No Notes: Memori a oxide 2-24 (Same as: l 08:31: Mag-Ox 00 400) Magnesium oxide 792gf=957s g elemental magnesium Dose=____m g magnesium oxide [...] oria 2-23 IV push l 15:00: reconstitu [place] 00 te with 10 ml 0.9% sodium chloride and push over 2 minutes. (Same as: Protonix) polyethylen 2021-03 No Notes: [place] to e glycol 2-23 Dissolve l 3350 15:00: in 8 oz of [place] 00 water or juice. (Same as: Miralax) [...] ia 2-23 (Same As: l 15:00: Topamax) Tanvir 00 "Do Not Crush" Hazardous Drug Group 3:Reproduc tive risk Hazardous Drug -- Refer to safe handling procedure PPE Matrix hydrochloro 2021-03 No Notes: [place] to thiazide 25 2-23 (Same as: l mg oral 15:00: Hydrodiuri Herm radha tablet 00 l) With food. Protonix 2021-03 No Notes: For Mem oria 2-23 IV push l 15:00: reconstitu [place] 00 te with 10 ml 0.9% sodium [...] ia 2-23 (Same As: l 15:00: Topamax) [place] 00 "Do Not Crush" Hazardous Drug Group 3:Reproduc tive risk Hazardous Drug -- Refer to safe handling procedure PPE [facility] hydrochloro 2021-03 No Notes: [place] to thiazide 25 2-23 (Same as: l mg oral 15:00: Hydrodiuri Herm rahda tablet 00 l) With food. Protonix 2021-03 No Notes: For Mem oria 2-23 IV push l 15:00: reconstitu Tanvir 00 te with 10 ml 0.9% sodium chloride and push over 2 minutes. (Same as: Protonix) polyethylen 2021-03 No Notes: [place] to e glycol 2-23 Dissolve l 3350 15:00: in 8 oz of [place] water or juice. (Same as: Miralax) aspirin 81 2021-03 No Notes: Do Me moria mg tablet, 2-23 not crush l enteric 15:00: or chew. Eric n coated 00 (Same As: Ecotrin) Plavix 2021-03 No Notes: [facility] 2-23 (Same As: l 15:00: Plavix) [place] losartan 2021-03 No Notes: [facility] 2-23 (Same [...] 2-23 (Same as: l 14:00: Lovenox) [place] Lovenox 2021-03 No Notes: [facility] 2-23 (Same as: l 14:00: Lovenox) [place] 00 Lovenox 2021-03 No Notes: [facility] 2-23 (Same as: l 14:00: Lovenox) [place] 00 Lovenox 2021-03 No Notes: [facility] 2-23 (Same as: l 14:00: Lovenox) [place] 00 Lovenox 2021-03 No Notes: [facility] 2-23 (Same as: l 14:00: Lovenox) [place] 00 heparin 2021-03 No Notes: [facility] 2-23 porcine l 06:00: heparin [place] 00 heparin 2021-03 No Notes: [facility] 2-23 porcine l 06:00: heparin [place] 00 heparin 2021-03 No Notes: [facility] 2-23 porcine l 06:00: heparin [place] 00 heparin 2021-03 No Notes: [facility] 2-23 porcine l 06:00: heparin [place] 00 heparin 2021-03 No Notes: [facility] 2-23 porcine l 06:00: heparin [place] 00 Saline 2021-03 No Notes: [facility] Flush 0.9% 2-23 Same as: l 03:00: BD [place] 00 Posiflush Sterile atorvastati 2021-03 No Notes: [place] to n 2-23 Same as l 03:00: Lipitor [place] 00 donepezil 2021-03 No Notes: Memori a 2-23 (Same as: l 03:00: Aricept) [place] 00 Saline 2021-03 No Notes: [facility] Flush 0.9% 2-23 Same as: l 03:00: BD [place] 00 Posiflush Sterile atorvastati 2021-03 No Notes: [place] to n 2-23 Same as l 03:00: Lipitor [place] 00 donepezil 2021-03 No Notes: [facility] a 2-23 (Same as: l 03:00: Aricept) [place] 00 Saline 2021-03 No Notes: [facility] Flush 0.9% 2-23 Same as: l 03:00: BD [place] 00 Posiflush Sterile atorvastati 2021-03 No Notes: [place] to n 2-23 Same as l 03:00: Lipitor [place] 00 donepezil 2021-03 No Notes: [facility] a 2-23 (Same as: l 03:00: Aricept) [place] 00 Saline 2021-03 No Notes: [facility] Flush 0.9% 2-23 Same as: l 03:00: BD [place] 00 Posiflush Sterile atorvastati 2021-03 No Notes: [place] to n 2-23 Same as l 03:00: Lipitor [place] 00 donepezil 2021-03 No Notes: [facility] a 2-23 (Same as: l 03:00: Aricept) [place] Saline 2021-03 No Notes: [facility] Flush 0.9% 2-23 Same as: l 03:00: BD [place] 00 Posiflush Sterile atorvastati 2021-03 No Notes: [place] to n 2-23 Same as l 03:00: Lipitor [place] 00 donepezil 2021-03 No Notes: Mem[facility] a 2-23 (Same as: l 03:00: Aricept) [place] 00 Dextrose 2021-03 No 12.5 gm, Memor ia 50% Syringe 2-23 25 mL, l (D50W) 01:54: Route: [place] 00 IVP, Drug Form: INJ, Dosing Weight 62.5, kg, PRN, PRN Blood Glucose Results, Start date: 02/26/22 19:54:00 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, Duration: 30 day, Stop date: 03/28/22 19:53:00 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, 0 glucagon 2021-03 No 1 mg, [facility]oria 2-23 Route: IM, l 01:54: Drug form: [place] 00 PDR/INJ, PRN, Dosing Weight 62.5, kg, PRN Blood Glucose Results, Start date: 02/26/22 19:54:00 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, Duration: 30 day, Stop date: 03/28/22 19:53:00 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, 0 insulin 2021-03 No Notes: [facility] lispro [...] Blood Glucose Results, Start date: 02/26/22 19:54:00 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, Duration: 30 day, Stop date: 03/28/22 19:53:00 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, 0 glucagon 2021-03 No 1 mg, [facility] 2-23 Route: IM, l 01:54: Drug form: [place] 00 PDR/INJ, PRN, Dosing Weight 62.5, kg, PRN Blood Glucose Results, Start date: 02/26/22 19:54:00 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, Duration: 30 day, Stop date: 03/28/22 19:53:00 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, 0 insulin 2021-03 No Notes: [facility] lispro 2-23 (Same as: l : Humalog) [place] 00 Roll in palms of [...] Blood Glucose Results, Start date: 02/26/22 19:54:00 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, Duration: 30 day, 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: 03/28/22 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:00 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, 0 glucagon 2021-03 No 1 mg, [facility] 2-23 Route: IM, l 01:54: Drug form: [place] 00 PDR/INJ, PRN, Dosing Weight 62.5, kg, PRN Blood Glucose Results, Start date: 02/26/22 19:54:00 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, Duration: 30 day, Stop date: 03/28/22 19:53:00 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, 0 insulin 2021-03 No Notes: [facility] lispro 2-23 (Same as: l :54: Humalog) [place] 00 Roll in palms of hands gently; [...] Blood Glucose Results, Start date: 02/26/22 19:54:00 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, Duration: 30 day, Stop date: 03/28/22 19:53:00 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 WASTE: F/P - Black; E - Municipal Trash Bin Stable for 28 days at room temperatur cony. Expires in days from ____Date Dextrose 2021-03 No 12.5 gm, Memor ia 50% Syringe 2-23 25 mL, l (D50W) 01:54: Route: [place] 00 IVP, Drug Form: INJ, Dosing Weight 62.5, kg, PRN, PRN Blood Glucose Results, Start date: 02/26/22 19:54:00 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, Duration: 30 day, Stop date: 03/28/22 19:53:00 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, 0 glucagon 2021-03 No 1 mg, [facility] 2-23 Route: IM, l 01:54: Drug form: [place] 00 PDR/INJ, PRN, Dosing Weight 62.5, kg, PRN Blood Glucose Results, Start date: 02/26/22 19:54:00 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, Duration: 30 day, Stop date: 03/28/22 19:53:00 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, 0 insulin 2021-03 No Notes: [facility] lispro 2-23 (Same as: l 01:54: Humalog) [place] 00 Roll in palms of hands gently; [...] PO, Q12H, l tablet 00:27: tab, 0 [place] 00 Refill(s) Eliquis 2.5 2021-03 No 2.5 mg, Mem oria mg oral 2-23 PO, Q12H, l tablet 00:27: tab, 0 [place] 00 Refill(s) Eliquis 2.5 2021-03 No 2.5 mg, Mem oria mg oral 2-23 PO, Q12H, l tablet 00:27: tab, 0 [place] 00 Refill(s) Eliquis 2.5 2021-03 No 2.5 mg, Mem oria mg oral 2-23 PO, Q12H, l tablet 00:27: tab, 0 [place] 00 Refill(s) dicyclomine 2021-03 Yes 5 mg, Q6H, [facility] 2-23 0 l 00:26: Refill(s) [place] dicyclomine 2021-03 Yes 5 mg, Q6H, [facility] 2-23 0 l 00:26: Refill(s) [place] 00 dicyclomine 2021-03 Yes 5 mg, Q6H, [facility] 2-23 0 l 00:26: Refill(s) [place] 00 dicyclomine 2021-03 Yes 5 mg, Q6H, [facility] 2-23 0 l 00:26: Refill(s) [place] 00 dicyclomine 2021-03 Yes 5 mg, Q6H, [facility] 2-23 0 l 00:26: Refill(s) [place] 00 ipratropium 2021-03 Yes 0.5 mg, Mem oria 0.02% 2-23 NEB, Q6H, l inhalation 00:25: PRN [place] solution 00 wheezing, # 25 ea, 0 Refill(s) losartan 2021-03 No 25 mg = 1 M emoria mg oral 2-23 tab, PO, l tablet 00:25: Daily, # [place] 00 30 tab, 0 Refill(s) ipratropium 2021-03 Yes 0.5 mg, Mem oria 0.02% 2-23 NEB, Q6H, l inhalation 00:25: PRN [place] solution 00 wheezing, # 25 ea, 0 Refill(s) losartan 2021-03 No 25 mg = 1 M emoria mg oral 2-23 tab, PO, l tablet 00:25: Daily, # [place] 00 30 tab, 0 Refill(s) ipratropium 2021-03 Yes 0.5 mg, Mem oria 0.02% 2-23 NEB, Q6H, l inhalation 00:25: PRN [place] solution 00 wheezing, # 25 ea, 0 Refill(s) losartan 2021-03 No 25 mg = 1 M emoria mg oral 2-23 tab, PO, l tablet 00:25: Daily, # [place] 00 30 tab, 0 Refill(s) ipratropium 2021-03 Yes 0.5 mg, Mem oria 0.02% 2-23 NEB, Q6H, l inhalation 00:25: PRN [place] solution 00 wheezing, # 25 ea, 0 Refill(s) losartan 2021-03 No 25 mg = 1 M em[place] mg oral 2-23 tab, PO, l tablet 00:25: Daily, # [place] 00 30 tab, 0 Refill(s) ipratropium 2021-03 Yes 0.5 mg, Mem oria 0.02% 2-23 NEB, Q6H, l inhalation 00:25: PRN [place] solution 00 wheezing, # 25 ea, 0 Refill(s) losartan 2021-03 No 25 mg = 1 M [place] mg oral 2-23 tab, PO, l tablet 00:25: Daily, # [place] 00 30 tab, 0 Refill(s) metoprolol 2021-03 [...] mcg/inh 2-23 microgram l inhalation 00:23: =, [place] powder 00 INHALATION , BID, 0 Refill(s) budesonide 2021-03 Yes 180 Memoria 90 mcg/inh 2-23 microgram l inhalation 00:23: =, [place] powder 00 INHALATION , BID, 0 Refill(s) budesonide 2021-03 Yes 180 [facility] 90 mcg/inh 2-23 microgram l inhalation 00:23: =, [place] powder 00 INHALATION , BID, 0 Refill(s) budesonide 2021-03 Yes 180 [facility] 90 mcg/inh 2-23 microgram l inhalation 00:23: =, [place] powder 00 INHALATION , BID, 0 Refill(s) Plavix 75 2021-03 No 75 mg = 1 Mem o[facility] mg oral 2-23 tab, PO, l tablet 00:21: Daily, # [place] 00 30 tab, 0 Refill(s) albuterol 2021-03 [...] tab, PO, l tablet 00:21: Daily, # [place] 00 30 tab, 0 Refill(s) albuterol 2021-03 Yes 2.49 mg = Mem oria 0.083% 2-23 3 mL, NEB, l inhalation 00:21: Q6H, PRN Her stewart solution 00 as needed for shortness of breath, # 120 ea, 3 Refill(s) Plavix 75 2021-03 No 75 mg = 1 Mem o[facility] mg oral 2-23 tab, PO, l tablet 00:21: Daily, # [place] 00 30 tab, 0 Refill(s) albuterol 2021-03 [...] 0.9% 2-23 Same as: l 00:16: BD [place] 00 Posiflush Sterile nystatin 2021-03 No Notes: [...] 0.9% 2-23 Same as: l 00:16: BD [place] 00 Posiflush Sterile nystatin 2021-03 No Notes: [...] 0.9% 2-23 Same as: l 00:16: BD [place] 00 Posiflush Sterile nystatin 2021-03 No Notes: [...] 0.9% 2-23 Same as: l 00:16: BD [place] 00 Posiflush Sterile nystatin 2021-03 No Notes: [facility] topical 2-23 (Same l 100,000 00:16: as:Mycosta Herm radha units/g 00 tin, powder Nilstat) For external use only. acetaminoph 2021-03 No Notes: Do M emoria en 2-23 not exceed l 00:16: 4 gm/day. [place] 00 (Same as: Tylenol) docusate-se 2021-03 No Notes: [place] to nna 50 2-23 (Same as l mg-8.6 mg 00:16: Senokot-S) He rmann oral tablet 00 Equiv. to Urvashi-Colac e. Saline 2021-03 No Notes: [facility] Flush 0.9% 2-23 Same as: l 00:16: BD [place] 00 Posiflush Sterile METOPROLOL 2021-03 Yes 25mg Take 25 mg U nivers TARTRATE 1-01 by mouth 2 ity o f ORAL 10:38: (two) [place] 39 times Medical daily. Branch budesonide- 2021-03 Yes 2{puff} Inhale 2 [facility] formoterol 1-01 Puffs 2 ity of (SYMBICORT) 10:38: (two) [place] 160-4.5 39 times Medical mcg/actuati daily. Branch on inhaler hydroCHLORO 2021-03 Yes 25mg Take 25 mg [facility] thiazide 25 1-01 by mouth ity of mg tablet 10:38: in the [place] [address] morning. Medical Branch topiramate 2021-03 Yes 25mg Take 25 mg U nivers 25 mg 1-01 by mouth ity of tablet 10:38: in the [place] [address] morning Medical and 25 mg Branch in the evening. losartan 25 2021-03 Yes 25mg Take 25 mg [facility] mg tablet 1-01 by mouth ity of 10:38: in the [place] [address] morning. Medical Branch donepeziL 5 2021-03 Yes 5mg Take 5 mg U nivers mg tablet 1-01 by mouth ity of 10:38: at [place] [address] bedtime. Medical Branch METOPROLOL 2021-03 Yes 25mg [...] ity of mg tablet 10:38: in the [place] [address] morning. Medical Branch topiramate 2021-03 Yes 25mg Take 25 mg U nivers 25 mg 1-01 by mouth ity of tablet 10:38: in the [place] 39 morning Medical and 25 mg Branch in the evening. losartan 25 2021-03 Yes 25mg Take 25 mg [facility] mg tablet 1-01 by mouth ity of 10:38: in the [place] [address] morning. Medical Branch donepeziL 5 2021-03 Yes 5mg Take 5 mg U nivers mg tablet 1-01 by mouth ity of 10:38: at [place] [address] bedtime. Medical Branch METOPROLOL 2021-03 Yes 25mg Take 25 mg U nivers TARTRATE 1-01 by mouth 2 ity o f ORAL 10:38: (two) [place] 39 times Medical daily. Branch budesonide- 2021-03 Yes 2{puff} Inhale 2 [facility] formoterol 1-01 Puffs 2 ity of (SYMBICORT) 10:38: (two) [place] 160-4.5 39 times Medical mcg/actuati daily. Branch on inhaler hydroCHLORO 2021-03 Yes 25mg Take 25 mg [facility] thiazide 25 1-01 by mouth ity of mg tablet 10:38: in the [place] [address] morning. Medical Branch topiramate 2021-03 Yes 25mg Take 25 mg U nivers 25 mg 1-01 by mouth ity of tablet 10:38: in the [place] [address] morning Medical and 25 mg Branch in the evening. losartan 25 2021-03 Yes 25mg Take 25 mg [facility] mg tablet 1-01 by mouth ity of 10:38: in the [place] [address] morning. Medical Branch donepeziL 5 2021-03 Yes 5mg Take 5 mg U nivers mg tablet 1-01 by mouth ity of 10:38: at [place] [address] bedtime. Medical Branch METOPROLOL 2021-03 Yes 25mg Take 25 mg U nivers TARTRATE 1-01 by mouth 2 ity o f ORAL 10:38: (two) [place] 39 times Medical daily. Branch budesonide- 2021-03 [...] by mouth ity of 10:38: in the [place] 39 morning. Medical Branch donepeziL 5 2021-03 Yes 5mg Take 5 mg U nivers mg tablet 1-01 by mouth ity of 10:38: at [place] 39 bedtime. Medical Branch METOPROLOL 2021-03 Yes 25mg Take 25 mg U nivers TARTRATE 1-01 by mouth 2 ity o f ORAL 10:38: (two) [place] 39 times Medical daily. Branch budesonide- 2021-03 [...] by mouth ity of 10:38: in the [place] 39 morning. Medical Branch donepeziL 5 2021-03 Yes 5mg Take 5 mg U nivers mg tablet 1-01 by mouth ity of 10:38: at [place] 39 bedtime. Medical Branch ELIQUIS 2.5 2021-03 Yes 2.5mg Take 2.5 U nivers mg tablet 0-12 mg by ity of 00:00: mouth 2 [place] 00 (two) Medical times Branch daily. ELIQUIS 2.5 2021-03 Yes 2.5mg Take 2.5 U nivers mg tablet 0-12 mg by ity of 00:00: mouth 2 [place] 00 (two) Medical times Branch daily. ELIQUIS 2.5 2021-03 Yes 2.5mg Take 2.5 U nivers mg tablet 0-12 mg by ity of 00:00: mouth 2 [place] 00 (two) Medical times Branch daily. ELIQUIS 2.5 2021-03 Yes 2.5mg Take 2.5 U nivers mg tablet 0-12 mg by ity of 00:00: mouth 2 [place] 00 (two) Medical times Branch daily. ELIQUIS 2.5 2021-03- No 2.5mg Take 2.5 Univers mg tablet 0-12 01-06 mg by ity of 00:00: 00:00 mouth 2 [place] 00 :00 (two) Medical times Branch daily. predniSONE 2021-03 Yes 40mg 40 mg, Unive rs (DELTASONE) 0-07 Oral, ity of tablet 40 14:00: DAILY, [place] mg 00 First dose Medical on Wed Branch 12/12/21 at 0900, Until Discontinu ed, Routine predniSONE 2021-03- No [id number] 40mg Take 2 Univers 20 mg 0-07 10-13 tablets by ity of tablet 00:00: 04:59 mouth in [place] 00 :00 the Medical morning Branch for 5 days. predniSONE 2021-03- No [id number] 40mg Take 2 Univers 20 mg 0-07 10-13 tablets by ity of tablet 00:00: 04:59 mouth in [place] 00 :00 the Medical morning Branch for [...] 0-06 by mouth ity of 17:38: at [place] 40 bedtime. Medical Branch METOPROLOL 2021-03 Yes [...] 0-06 by mouth ity of 17:38: at [place] 40 bedtime. Medical Branch ipratropium 2021-03 Yes .5mg Inhale 0.5 Univers (ATROVENT) 0-06 mg. ity of 0.02 % 17:38: [place] nebulizer 40 Medical solution Branch ipratropium 2021-03 Yes .5mg Inhale 0.5 Univers (ATROVENT) 0-06 mg. ity of 0.02 % 17:38: [place] nebulizer 40 Medical solution Branch ipratropium 2021-03 Yes .5mg Inhale 0.5 Univers (ATROVENT) 0-06 mg. ity of 0.02 % 17:38: [place] nebulizer 40 Medical solution Branch ipratropium 2021-03 Yes .5mg Inhale 0.5 Univers (ATROVENT) 0-06 mg. ity of 0.02 % 17:38: [place] nebulizer 40 Medical solution Branch ipratropium 2021-03 Yes .5mg Inhale 0.5 Univers (ATROVENT) 0-06 mg. ity of 0.02 % 17:38: [place] nebulizer 40 Medical solution Branch ALPRAZolam 2021-03 .25mg 0.25 mg, U nivers (XANAX) 0-06 10-06 Oral, ity of tablet 0.25 02:15: 01:35 ONCE, 1 [place] mg 00 :00 dose, On Medical Wed [place] 12/10/21 at 2115, Routine enoxaparin 2021-03 Yes 40mg 40 mg, Unive rs (LOVENOX) 0-05 Subcutaneo ity of injection 14:00: [place], DAILY, [place] 40 mg 00 First dose Medical on Wed [place] 12/10/21 at 0900, Until Discontinu ed, Routine losartan 2021-03 Yes 25mg 25 mg, Univers (COZAAR) 0-05 Oral, ity of tablet 25 14:00: DAILY, [place] mg 00 First dose Medical on Wed [place] 12/10/21 at 0900, Until Discontinu ed, Routine [...] [place] 00 First dose Medical on Wed Branch [...] at Branch 0800, Until Discontinu ed, Routine
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 member approving Restricted medication : ILDA WREN metoprolol 2021-03 Yes 25mg 25 mg, Unive rs tartrate 0-05 Oral, BID, ity o f (LOPRESSOR) 13:00: First dose [place] tablet 25 00 on Wed Medical mg 12/10/21 at Branch 0800, Until Discontinu ed methylpredn 2021-03- No 40mg 40 mg, Uni vers isolone sod 0-05 10-06 Slow IV ity of succ 05:00: 20:14 Push, Q6H, [place] (SOLU-MEDRO 00 :43 First dose Me dical L) on Wed injection 12/10/21 at 40 mg 0000, Until Discontinu ed, Routine donepeziL 2021-03 Yes 5mg 5 mg, Univers (ARICEPT) 0-05 Oral, QHS, ity of tablet 5 mg 02:30: First dose [place] 00 on Wed12/09/21 at Branch 2130, Until Discontinu ed, Routine budesonide- 2021-03 Yes 2{puff} 2 Puff, Univers formoteroL 0-05 Inhalation ity of (SYMBICORT) 02:30: , BID, [place] 160-4.5 00 First dose Medica l mcg/actuati on Wed on inhaler 12/09/21 at 2 Puff 2129, Until Discontinu ed, Routine atorvastati 2021-03 Yes 40mg 40 mg, Univ ers n (LIPITOR) 0-05 Enteral, ity of tablet 40 02:30: QHS, First [place] mg 00 dose on Medical [facility] 12/09/21 at 2130, Until Discontinu ed, Routine ipratropium 2021-03 Yes 3mL 3 mL, Unive rs -albuteroL 0-05 Inhalation ity of (DUONEB) 02:20: , QIDPRN, [place] 0.5 mg-3 49 Starting Medical mg(2.5 mg on [facility] base)/3 mL 12/09/21 at nebulizer 2119, solution 3 Until mL Discontinu ed, Routine, Wheezing, Shortness of Breath, Bronchospa sm, Chest tightness ondansetron 2021-03 Yes 4mg 4 mg, Slow Univers (ZOFRAN 0-05 IV Push, ity of (PF)) 02:20: Q6HPRN, [place] injection 4 42 Starting Medi waqar mg on [facility] 12/09/21 at 2119, Until Discontinu ed, Routine, Nausea and Vomiting (N/V) traMADoL 2021-03 No 50mg 50 mg, Univer s (ULTRAM) 0-05 10-07 Oral, ity of tablet 50 02:20: 02:19 Q8HPRN, [place] mg 38 :38 Starting Medical on [facility] 12/09/21 at 2119, Until [place] 12/11/21 at 2119, Routine, Pain (scale 4-6) acetaminoph 2021-03 Yes 650mg 650 mg, Un sarahy en 0-05 Oral, ity of (TYLENOL) 02:20: [facility], [place] tablet 650 35 Starting Medic al mg on [facility] 12/09/21 at 2119, Until Discontinu ed, Routine, Pain (scale 1-3) dicyclomine 2021-03 Yes 20mg 20 mg, Univ ers (BENTYL) 0-05 Oral, ity of tablet 20 02:16: Q6HPRN, [place] mg 51 Starting Medical on [facility] 12/09/21 at 2115, Until Discontinu ed, Routine, Abdominal pain cyclobenzap [...] 00 :00 dose, On Medical mg(2.5 mg [facility] Branch base)/3 mL 12/09/21 at nebulizer 1700, LORAINE solution 3 mL iopamidol 2021-03- No [id number] 100mL 100 mL, Univers (ISOVUE 0-04 10-04 Intravenou ity o f 370-500 mL) 21:30: 20:21 s, ONCE, 1 [place] injection 00 :00 dose, On Medica l 100 mL [facility] Branch 12/09/21 at 1630, Routine morpHINE (4 2021-03- No 2mg 2 mg, Slow Univers mg/mL) 0-04 10-04 IV Push, ity of injection 2 19:15: 19:47 ONCE, 1 [place] mg 00 :00 dose, On Medical [facility] Branch 12/09/21 at 1415, STAT BREZTRI 2021-03 [...] on RINSE Branch MOUTH AFTER EACH USE. METOPROLOL Yes 25mg Take 25 mg U nivers TARTRATE 9-21 by mouth 2 ity o f ORAL 16:47: (two) [place] 19 times Medical daily. Branch ipratropium Yes .5mg Inhale 0.5 Univers (ATROVENT) 9-21 mg. ity of 0.02 % 16:47: [place] nebulizer 19 Medical solution Branch budesonide- Yes 2{puff} Inhale 2 Univers formoterol 9-21 Puffs 2 ity of (SYMBICORT) 16:47: (two) [place] 160-4.5 19 times Medical mcg/actuati daily. Branch on inhaler hydroCHLORO Yes 25mg Take 25 mg Univers thiazide 25 9-21 by mouth ity of mg tablet 16:47: in the [place] 19 morning. Medical Branch topiramate 2021-0 Yes 25mg Take 25 mg U nivers 25 mg 9-21 by mouth ity of tablet 16:47: in the [place] [address] morning Medical and 25 mg Branch in the evening. losartan 25 2021-0 Yes 25mg Take 25 mg Univers mg tablet 9-21 by mouth ity of 16:47: in the [place] [address] morning. Medical Branch donepeziL 5 2021-0 Yes 5mg Take 5 mg U nivers mg tablet 9-21 by mouth ity of 16:47: at [place] [address] bedtime. Medical Branch METOPROLOL 2021-0 Yes 25mg Take 25 mg U nivers TARTRATE 9-21 by mouth 2 ity o f ORAL 16:47: (two) [place] 19 times Medical daily. Branch ipratropium 2021-0 Yes .5mg Inhale 0.5 Univers (ATROVENT) 9-21 mg. ity of 0.02 % 16:47: [place] nebulizer 19 Medical solution Branch budesonide- 2021-0 Yes 2{puff} Inhale 2 Univers formoterol 9-21 Puffs 2 ity of (SYMBICORT) 16:47: (two) [place] 160-4.5 19 times Medical mcg/actuati daily. Branch on inhaler hydroCHLORO 2021-0 Yes 25mg Take 25 mg Univers thiazide 25 9-21 by mouth ity of mg tablet 16:47: in the [place] [address] morning. Medical Branch topiramate 2021-0 Yes 25mg Take 25 mg U nivers 25 mg 9-21 by mouth ity of tablet 16:47: in the [place] [address] morning Medical and 25 mg Branch in the evening. losartan 25 2021-0 Yes 25mg Take 25 mg Univers mg tablet 9-21 by mouth ity of 16:47: in the [place] [address] morning. Medical Branch donepeziL 5 2021-0 Yes 5mg Take 5 mg U nivers mg tablet 9-21 by mouth ity of 16:47: at [place] [address] bedtime. Medical Branch METOPROLOL 2-0 Yes 25mg Take 25 mg U nivers TARTRATE 9-21 by mouth 2 ity o f ORAL 16:47: (two) [place] 19 times Medical daily. Branch ipratropium 2-0 Yes .5mg Inhale 0.5 Univers (ATROVENT) 9-21 mg. ity of 0.02 % 16:47: [place] nebulizer 19 Medical solution Branch budesonide- Yes 2{puff} Inhale 2 Univers formoterol 11-26 Puffs 2 ity of (SYMBICORT) 16:47: (two) [place] 160-4.5 19 times Medical mcg/actuati daily. Branch on inhaler hydroCHLORO Yes 25mg Take 25 mg Univers thiazide 25 11-26 by mouth ity of mg tablet 16:47: in the [place] [address] morning. Medical Branch topiramate Yes 25mg Take 25 mg U nivers 25 mg 11-26 by mouth ity of tablet 16:47: in the [place] [address] morning Medical and 25 mg Branch in the evening. losartan 25 Yes 25mg Take 25 mg Univers mg tablet 11-26 by mouth ity of 16:47: in the [place] [address] morning. Medical Branch donepeziL 5 Yes 5mg Take 5 mg U nivers mg tablet 11-26 by mouth ity of 16:47: at [place] [address] bedtime. Medical Branch aspirin EC Yes 81mg 81 mg, Unive rs tablet 81 11-26 Oral, ity of mg 14:00: DAILY, [place] 00 First dose Medical on Wed Branch 11/26/21 at 0900, Until Discontinu ed, Routine Saline Yes [id number] 6mL 6 mL, Unive rs Bubble 11-26 Injection, ity of Study 13:11: SEE-INSTRU [place] 44 CTIONS, Medical Starting Branch on Wed11/26/21 at 0811, Until Discontinu ed, Routine predniSONE 2021- No 20mg Take 20 mg Univers (DELTASONE) 11-26 by mouth ity of 20 mg 12:11: 00:00 daily. [place] tablet 19 :00 Medical Branch levofloxaci 2021- No 500mg Take 500 Univers n 11-26 mg by ity of (LEVAQUIN) 12:11: 00:00 mouth [place] 750 mg 19 :00 every 24 Medical tablet (twenty-fo Branch ur) hours. albuterol 0 2021- No 2.5mg Inhale 2.5 Univers (PROVENTIL) 11-26-21 mg every 4 i ty of 2.5 mg /3 12:11: 00:00 (four) [place] mL (0.083 19 :00 hours as Medica l %) needed for [place] nebulizer Wheezing solution or Shortness of Breath. clopidogrel 2021-0 2- No 75mg Take 75 mg Univers (PLAVIX) 75 -26 11- by mouth ity of mg tablet 12:11: 00:00 daily. [place] 19 :00 Medical Branch atorvastati 2021-0 Yes [id number] 40mg Take 1 Univers n 40 mg 9-21 tablet ity of tablet 00:00: through [place] [address] enteral Medical tube at [place] bedtime. clopidogreL 2021-0 Yes [id number] 75mg Take 1 Univers 75 mg 9-21 tablet by ity of tablet 00:00: mouth in [place] 00 the Medical morning. Branch atorvastati 2021-0 Yes [id number] 40mg Take 1 Univers n 40 mg 9-21 tablet ity of tablet 00:00: through [place] [address] enteral Medical tube at [place] bedtime. clopidogreL 2021-0 Yes [id number] 75mg Take 1 Univers 75 mg 9-21 tablet by ity of tablet 00:00: mouth in [place] 00 the Medical morning. Branch atorvastati 2021-0 Yes [id number] 40mg Take 1 Univers n 40 mg 9-21 tablet ity of tablet 00:00: through [place] [address] enteral Medical tube at [place] bedtime. clopidogreL 2021-0 Yes [id number] 75mg Take 1 Univers 75 mg 9-21 tablet by ity of tablet 00:00: mouth in [place] 00 the Medical morning. Branch atorvastati 2021-0 Yes [id number] 40mg Take 1 Univers n 40 mg 9-21 tablet ity of tablet 00:00: through [place] [address] enteral Medical tube at [place] bedtime. clopidogreL 2021-0 Yes [id number] 75mg Take 1 Univers 75 mg 9-21 tablet by it[facility] of tablet 00:00: mouth in [place] 00 the Medical morning. Branch atorvastati 2021-0 Yes [id number] 40mg Take 1 [facility] n 40 mg 9-21 tablet ity of tablet 00:00: through [place] [id number] enteral Medical tube at [place] bedtime. clopidogreL 2021-0 Yes [id number] 75mg Take 1 [facility] 75 mg 9-21 tablet by ity of tablet 00:00: mouth in [place] 00 the Medical morning. [place] atorvastati 2021-0 Yes [id number] 40mg Take 1 [facility] n 40 mg 9-21 tablet ity of tablet 00:00: through [place] 00 enteral Medical tube at [facility] [employer] [facility] clopidogreL 2021-0 Yes [id number] 75mg Take 1 [facility] 75 mg 9-21 tablet by ity of tablet 00:00: mouth in [place] 00 the Medical morning. [place] atorvastati 2021-0 Yes [id number] 40mg Take 1 Univers n 40 mg 9-21 tablet ity of tablet 00:00: through [place] 00 enteral Medical tube at [facility]. clopidogreL 2021-0 Yes [id number] 75mg Take 1 [facility] 75 mg 9-21 tablet by ity of tablet 00:00: mouth in [place] 00 the Medical morning. [place] atorvastati 2021-0 Yes [id number] 40mg Take 1 Univers n 40 mg 9-21 tablet ity of tablet 00:00: through [place] 00 enteral Medical tube at [facility]. clopidogreL 2021-0 Yes [id number] 75mg Take 1 [facility] 75 mg 9-21 tablet by ity of tablet 00:00: mouth in [place] 00 the Medical morning. [place] atorvastati 0 Yes [id number] 40mg Take 1 Univers n 40 mg 9-21 tablet ity of tablet 00:00: through [place] 00 enteral Medical tube at [facility]. clopidogreL 2021-0 Yes [id number] 75mg Take 1 [facility] 75 mg 9-21 tablet by ity of tablet 00:00: mouth in [place] 00 the Medical morning. [place] atorvastati 2021-0 Yes [id number] 40mg Take 1 Univers n 40 mg 9-21 tablet ity of tablet 00:00: through [place] 00 enteral Medical tube at [facility]. clopidogreL 2021-0 Yes [id number] 75mg Take 1 [facility] 75 mg 9-21 tablet by ity of tablet 00:00: mouth in [place] 00 the Medical morning. Branch atorvastati 2021-0 2022- No [id number] 40mg Take 1 Univers n 40 mg 9-21 01-06 tablet ity of tablet 00:00: 00:00 through [place] 00 :00 enteral Medical tube at [place] bedtime. clopidogreL 2021-0 2022- No [id number] 75mg Take 1 [facility] 75 mg 9-21 01- tablet by ity of tablet 00:00: 00:00 mouth in [place] 00 :00 the Medical morning. Branch aspirin 81 2021- No [id number] 81mg Take 1 Univers mg EC - 10-13 tablet by ity of tablet 00:00: 04:59 mouth in [place] 00 :00 the Medical morning Branch for 21 days. aspirin 81 2021- No [id number] 81mg Take 1 Univers mg EC 9-21 10-13 tablet by ity of tablet 00:00: 04:59 mouth in [place] 00 :00 the [facility] morning Branch for 21 days. aspirin 81 2021- No [id number] 81mg Take 1 Univers mg EC - 10-13 tablet by ity of tablet 00:00: 04:59 mouth in [place] 00 :00 the [facility] for 21 days. aspirin 81 2021- No [id number] 81mg Take 1 Univers mg EC - 10-13 tablet by ity of tablet 00:00: 04:59 mouth in [place] 00 :00 the [facility] for 21 days. aspirin 81 2021- No [id number] 81mg Take 1 Univers mg EC 9-21 10-13 tablet by ity of tablet 00:00: 04:59 mouth in [place] 00 :00 the [facility] for 21 days. sulfur 2021- No [id number] 5mL 5 mL, Univ ers hexafluorid 11-25- Intravenou i ty of e microsphr 20:30: 20:30 s, ONCE, 1 [place] (LUMASON) 00 :00 dose, On Medica l injection 5 [facility] mL 11/25/21 at 1530, Routine
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 member approving Restricted medication : DENICE BHAKTA clopidogreL Yes 75mg 75 mg, Univ ers (PLAVIX) 75 11-25 Oral, ity of mg tablet 14:00: DAILY, [place] 75 mg 00 First dose Medical on [facility] 11/25/21 at 0900, Until Discontinu ed, Routine atorvastati Yes 40mg 40 mg, Univ ers n (LIPITOR) - Enteral, ity of tablet 40 02:00: QHS, First [place] mg 00 dose on Medical [facility] 11/24/21 at 2100, Until Discontinu ed, Routine donepeziL 0 Yes 5mg 5 mg, Univers (ARICEPT) 11-25 Oral, QHS, ity of tablet 5 mg 02:00: First dose [place] 00 on [facility] 11/24/21 at Branch 2100, Until Discontinu ed, Routine heparin 0 Yes 5000U 5,000 Univers (porcine) 11-25 Units, ity of injection 01:00: Subcutaneo [place] 5,000 Units 00 us, Q12H, Med ical First dose Branch on [facility] 11/24/21 at 2000, Until Discontinu ed, Routine aspirin 0 2021- No 81mg 81 mg, Univers chewable 11-24 Oral, ONCE ity of tablet 81 23:45: 01:35 NOW, 1 [place] mg 00 :00 dose, On [facility] 11/24/21 at 1845, STAT cyclobenzap Yes 5mg 5 mg, Unive rs rine 11-24 Oral, ity of (FLEXERIL) 23:35: TIDPRN, [place] tablet 5 mg 48 Starting Medi waqar on [facility] 11/24/21 at 1835, Until Discontinu ed, Routine, Muscle Spasms clopidogreL 2021- No 300mg 300 mg, U nivers (PLAVIX) 11-24 Oral, ity of 300 mg 23:35: 01:35 ONCE, 1 [place] tablet 300 00 :00 dose, On Medic al mg [facility] 11/24/21 at 1845, Routine albuterol Yes 2.5mg 2.5 mg, Univ ers (PROVENTIL) 11-24 Inhalation it y of 2.5 mg /3 23:34: , Q4HPRN, [place] as mL (0.083 51 Starting Medica l %) on [facility] nebulizer 11/24/21 at solution 1834, 2.5 mg Until Discontinu ed, Routine, Wheezing, Shortness of Breath dicyclomine Yes 20mg 20 mg, Univ ers (BENTYL) 11-24 Oral, ity of tablet 20 23:34: Q6HPRN, [place] mg 37 Starting Medical on [facility] 11/24/21 at 1834, Until Discontinu ed, Routine, Abdominal pain NaCl 0.9% Yes 1000mL at 65 Unive rs (NS) IV 9-19 mL/hr, IV ity of infusion 23:15: Infusion, [place] 1,000 mL 00 CONTINUOUS Medic al , Starting Branch on 11/24/21 at 1815, Until Discontinu ed, Routine Omeprazole 2021- No Take by Uni vers Magnesium 11-24 mouth. ity of 20 mg 18:40: 00:00 [place] capsule 59 :00 [facility] pantoprazol 2021- No 40mg Take 40 mg Univers e sodium 11-24 by mouth ity of (PROTONIX 18:40: 00:00 daily. [place] ORAL) 59 :00 [facility] iopamidol 2021- No [id number] 80mL 80 mL, Univers (ISOVUE 11-23 Intravenou ity o f 370-500 mL) 09:30: 08:28 s, ONCE, 1 [place] injection 00 :00 dose, On Medica l 80 mL [facility] 11/23/21 at 0430, Routine morpHINE (4 2021- No 4mg 4 mg, Slow Univers mg/mL) 11-23 IV Push, ity of injection 4 08:30: 07:43 ONCE, 1 [place] mg 00 :00 dose, On Medical [facility] 11/23/21 at 0330, LORAINE ondansetron 2021- No 4mg 4 mg, Slow Univers (ZOFRAN 11-23 IV Push, ity of (PF)) 07:45: 07:44 ONCE, 1 [place] injection 4 00 :00 dose, On Medi waqar mg [facility] 11/23/21 at 0245, LORAINE aspirin 2021- No 325mg 325 mg, Unive rs tablet 325 11-23 Oral, ity of mg 07:45: 07:46 ONCE, 1 [place] 00 :00 dose, On Medical [facility] 11/23/21 at 0245, STAT clopidogrel Yes 75mg Take 75 mg Univers (PLAVIX) 75 11-23 by mouth ity of mg tablet 06:17: daily. [place] 17 Medical Branch clopidogreL 2021-0 Yes [id number] 75mg Take 1 [facility] 75 mg 9-18 tablet by ity of tablet 00:00: mouth in [place] 00 the Medical morning. Branch traMADoL 50 2021-0 Yes [id number] 50mg Take 1 Univ ers mg tablet 9-18 tablet by ity o f 00:00: mouth [place] 00 every 6 Medical (six) Branch hours as needed (pain). Indication s: acute pain ondansetron 2021-0 Yes [id number] 1 or 2 Univers 4 mg tablet 9-18 tablets ity o f 00:00: every 6 [place] 00 hours as Medical needed for Branch nausea traMADoL 50 2021-0 Yes [id number] 50mg Take 1 Univ ers mg tablet 9-18 tablet by ity o f 00:00: mouth [place] 00 every 6 Medical (six) Branch hours as needed (pain). Indication s: acute pain ondansetron 2021-0 Yes [id number] 1 or 2 Univers 4 mg tablet [...] Indication s: acute pain traMADoL 50 2021-0 2022- No [id number] 50mg Take 1 Uni vers mg tablet 11-2308 tablet by ity of 00:00: 00:00 mouth [place] 00 :00 every 6 Medical (six) Branch hours as needed (pain). Indication s: acute pain clopidogreL 2021- No [id number] 75mg Take 1 [facility] 75 mg 11-23 tablet by ity of tablet 00:00: 00:00 mouth in [place] 00 :00 the Medical morning. Branch iopamidol 2021- No [id number] 64mL 64 mL, U nivers (ISOVUE 11-08 [...] Medical 11/08/21 Branch at 1345, STAT ondansetron 2021-0 2021- No 4mg 4 mg, Slow Univers (ZOFRAN 11-08 IV Push, ity of (PF)) 18:36: 18:38 ONCE, 1 [place] injection 4 00 :00 dose, On Medi waqar mg 11/08/21 Branch at 1345, LORAINE hydroCHLORO 2021-0 Yes 25mg Take 25 mg Univers thiazide 25 9-03 by mouth ity of mg tablet 16:00: in the [place] [address] morning. Medical Branch topiramate 2021-0 Yes 25mg Take 25 mg U nivers 25 mg 9-03 by mouth ity of tablet 16:00: in the [place] [address] morning Medical and 25 mg Branch in the evening. losartan 25 2021-0 Yes 25mg Take 25 mg Univers mg tablet 9-03 by mouth ity of 16:00: in the [place] [address] morning. Medical Branch donepeziL 5 2021-0 Yes 5mg Take 5 mg U nivers mg tablet 9-03 by mouth ity of 16:00: at [place] [address] bedtime. Medical Branch pantoprazol 2021-0 Yes 40mg Take 40 mg Univers e sodium 9-03 by mouth ity of (PROTONIX 16:00: daily. [place] ORAL) 20 Medical Branch hydroCHLORO 2021-0 Yes 25mg Take 25 mg Univers thiazide 25 9-03 by mouth ity of mg tablet 16:00: in the [place] [address] morning. Medical Branch topiramate 2021-0 Yes 25mg Take 25 mg U nivers 25 mg 9-03 by mouth ity of tablet 16:00: in the [place] [address] morning Medical and 25 mg Branch in the evening. losartan 25 2021-0 Yes 25mg Take 25 mg Univers mg tablet 9-03 by mouth ity of 16:00: in the [place] [address] morning. Medical Branch donepeziL 5 2021-0 Yes 5mg Take 5 mg U nivers mg tablet 9-03 by mouth ity of 16:00: at [place] [address] bedtime. Medical Branch pantoprazol 2021-0 Yes 40mg Take 40 mg Univers e sodium 9-03 by mouth ity of (PROTONIX 16:00: daily. [place] ORAL) 20 Medical Branch dicyclomine 2022-0 Yes [id number] 20mg Take 1 Univers 20 mg 9-03 tablet by ity of tablet 00:00: mouth 4 [place] 00 (four) Medical times Branch daily. ondansetron 2022-0 Yes [id number] 4mg Take 1 Univers 4 mg 9-03 tablet by ity of disintegrat 00:00: mouth [place] ing tablet 00 every 4 Medica l (four) Branch hours as needed for Nausea and Vomiting (N/V). dicyclomine 2022-0 Yes [id number] 20mg Take 1 Univers 20 mg 9-03 tablet by ity of tablet 00:00: mouth 4 [place] 00 (four) Medical times Branch daily. ondansetron 2022-0 Yes [id number] 4mg Take 1 Univers 4 mg 9-03 tablet by ity of disintegrat 00:00: mouth [place] ing tablet 00 every 4 Medica l (four) Branch hours as needed for Nausea and Vomiting (N/V). dicyclomine 2-0 Yes [id number] 20mg Take 1 Univers 20 mg 9-03 tablet by ity of tablet 00:00: mouth 4 [place] 00 (four) Medical times Branch daily. ondansetron 2-0 Yes [id number] 4mg Take 1 Univers 4 mg 9-03 tablet by ity of disintegrat 00:00: mouth [place] ing tablet 00 every 4 Medica l (four) Branch hours as needed for Nausea and Vomiting (N/V). ondansetron 2-0 Yes [id number] 4mg Take 1 Univers 4 mg 9-03 tablet by ity of disintegrat 00:00: mouth [place] ing tablet 00 every 4 Medica l (four) Branch hours as needed for Nausea and Vomiting (N/V). ondansetron 2022-0 Yes [id number] 4mg Take 1 Univers 4 mg 9-03 tablet by ity of disintegrat 00:00: mouth [place] ing tablet 00 every 4 Medica l (four) Branch hours as needed for Nausea and Vomiting (N/V). ondansetron 2022-0 Yes [id number] 4mg Take 1 Univers 4 mg 9-03 tablet by ity of disintegrat 00:00: mouth [place] ing tablet 00 every 4 Medica l (four) Branch hours as needed for Nausea and Vomiting (N/V). ondansetron 2022-0 Yes [id number] 4mg Take 1 Univers 4 mg 9-03 tablet by ity of disintegrat 00:00: mouth [place] ing tablet 00 every 4 Medica l (four) Branch hours as needed for Nausea and Vomiting (N/V). ondansetron 2-0 Yes [id number] 4mg Take 1 Univers 4 mg 9-03 tablet by ity of disintegrat 00:00: mouth [place] ing tablet 00 every 4 Medica l (four) Branch hours as needed for Nausea and Vomiting (N/V). ondansetron 2-0 Yes [id number] 4mg Take 1 Univers 4 mg 9-03 tablet by ity of disintegrat 00:00: mouth [place] ing tablet 00 every 4 Medica l (four) Branch hours as needed for Nausea and Vomiting (N/V). ondansetron 2021-0 Yes [id number] 4mg Take 1 Univers 4 mg 9-03 tablet by ity of disintegrat 00:00: mouth [place] ing tablet 00 every 4 Medica l (four) Branch hours as needed for Nausea and Vomiting (N/V). ondansetron 2021-0 Yes [id number] 4mg Take 1 Univers 4 mg 9-03 tablet by ity of disintegrat 00:00: mouth [place] ing tablet 00 every 4 Medica l (four) Branch hours as needed for Nausea and Vomiting (N/V). ondansetron 2021-0 Yes [id number] 4mg Take 1 Univers 4 mg 9-03 tablet by ity of disintegrat 00:00: mouth [place] ing tablet 00 every 4 Medica l (four) Branch hours as needed for Nausea and Vomiting (N/V). ondansetron 2-0 Yes [id number] 4mg Take 1 Univers 4 mg 9-03 tablet by ity of disintegrat 00:00: mouth [place] ing tablet 00 every 4 Medica l (four) Branch hours as needed for Nausea and Vomiting (N/V). ondansetron 2021-0 2022- No [id number] 4mg Take 1 Univers 4 mg 9-03 01-08 tablet by ity of disintegrat 00:00: 00:00 mouth [place] ing tablet 00 :00 every 4 Medica l (four) Branch hours as needed for Nausea and Vomiting (N/V). maalox:diph 2021-0 2021- No 15mL 15 mL, Uni vers enhydrAMINE 08-31 Oral, ity of :lidocaine 22:45: 21:49 ONCE, 1 [place] 2 % viscous 00 :00 dose, On Medi waqar 1:1:1 [place] ([facility] 08/31/21 at [facility]) 1745, oral Routine suspension 15 mL dicyclomine 2021- No 20mg 20 mg, Uni vers (BENTYL) 08-31 Oral, ity of tablet 20 22:45: 21:49 ONCE, 1 [place] mg 00 :00 dose, On Medical [place] Branch 08/31/21 at 1745, Routine ondansetron 2021- No 4mg 4 mg, Slow Univers (ZOFRAN 08-31 IV Push, ity of (PF)) 21:00: 20:08 ONCE, 1 [place] injection 4 00 :00 dose, On Medi waqar mg [place] Branch 08/31/21 at 1600, LORAIEN morpHINE (4 2021- No 4mg 4 mg, Slow Univers mg/mL) 08-31 IV Push, ity of injection 4 21:00: 20:09 ONCE, 1 [place] mg 00 :00 dose, On [facility] Branch 08/31/21 at 1600, STAT NaCl 0.9% 2021- No 1000mL at 999 Uni vers (NS) bolus 08-31 mL/hr, ity of infusion 21:00: 21:36 1,000 mL, [place] as 1,000 mL 00 :00 IV Medical Infusion, Branch ONCE, 1 dose, On [place] 08/31/21 at 1600, LORAINE iopamidol 2021- No [id number] 70mL 70 mL, Univers (ISOVUE 08-31 Intravenou ity o f 300-500 mL) 20:52: 21:00 s, ONCE, 1 [place] injection 00 :00 dose, On Medica l 70 mL [place] Branch 08/31/21 at 1600, Routine Omeprazole Yes Take by [facility] ers Magnesium 08-31 mouth. ity of 20 mg 14:47: [place] capsule 32 [facility] Branch albuterol Yes 2.5mg Inhale 2.5 U nivers (PROVENTIL) 08-31 mg every 4 it y of 2.5 mg /3 14:47: (four) [place] mL (0.083 32 hours as Medica l %) needed for Branch nebulizer Wheezing solution or Shortness of Breath. clopidogrel 2021-0 Yes 75mg Take 75 mg Univers (PLAVIX) 75 6-26 by mouth ity of mg tablet 14:47: daily. [address] Omeprazole 2021-0 Yes Take by [facility] ers Magnesium 6-26 mouth. ity of 20 mg 14:47: [place] [address] Medical Branch albuterol 0 Yes 2.5mg Inhale 2.5 U nivers (PROVENTIL) 6-26 mg every 4 it y of 2.5 mg /3 14:47: (four) [place] mL (0.083 32 hours as Medica l %) needed for Branch nebulizer Wheezing solution or Shortness of Breath. clopidogrel 2021-0 Yes 75mg Take 75 mg Univers (PLAVIX) 75 6-26 by mouth ity of mg tablet 14:47: daily. [address] Omeprazole 0 Yes Take by [facility] Magnesium 6-26 mouth. ity of 20 mg 14:47: [address] albuterol 0 Yes 2.5mg Inhale 2.5 U nivers (PROVENTIL) 6-26 mg every 4 it y of 2.5 mg /3 14:47: (four) [place] mL (0.083 32 hours as Medica l %) needed for Branch nebulizer Wheezing solution or Shortness of Breath. dicyclomine 2022-0 Yes [id number] 20mg Take 1 Univers 20 mg 6-26 tablet by ity of tablet 00:00: mouth [place] 00 every 6 Medical (six) Branch hours as needed for Abdominal pain. dicyclomine 2022-0 Yes [id number] 20mg Take 1 Univers 20 mg 6-26 tablet by ity of tablet 00:00: mouth [place] 00 every 6 Medical (six) Branch hours as needed for Abdominal pain. dicyclomine 2022-0 Yes [id number] 20mg Take 1 [facility] 20 mg 6-26 tablet by ity of tablet 00:00: mouth [place] 00 every 6 Medical (six) Branch hours as needed for Abdominal pain. dicyclomine 2022-0 Yes [id number] 20mg Take 1 [facility] 20 mg 6-26 tablet by ity of tablet 00:00: mouth [place] 00 every 6 Medical (six) Branch hours as needed for Abdominal pain. dicyclomine 2022-0 Yes [id number] 20mg Take 1 [facility] 20 mg 6-26 tablet by ity of tablet 00:00: mouth [place] 00 every 6 Medical (six) Branch hours as needed for Abdominal pain. dicyclomine 2022-0 Yes [id number] 20mg Take 1 [facility] 20 mg 6-26 tablet by ity of tablet 00:00: mouth [place] 00 every 6 Medical (six) Branch hours as needed for Abdominal pain. dicyclomine 2022-0 Yes [id number] 20mg Take 1 [facility] 20 mg 6-26 tablet by ity of tablet 00:00: mouth [place] 00 every 6 Medical (six) Branch hours as needed for Abdominal pain. dicyclomine 2022-0 Yes [id number] 20mg Take 1 [facility] 20 mg 6-26 tablet by ity of tablet 00:00: mouth [place] 00 every 6 Medical (six) Branch hours as needed for Abdominal pain. dicyclomine 2022-0 Yes [id number] 20mg Take 1 [facility] 20 mg 6-26 tablet by ity of tablet 00:00: mouth [place] 00 every 6 Medical (six) Branch hours as needed for Abdominal pain. dicyclomine 2022-0 Yes [id number] 20mg Take 1 [facility] 20 mg 6-26 tablet by ity of tablet 00:00: mouth [place] 00 every 6 Medical (six) Branch hours as needed for Abdominal pain. dicyclomine 2022-0 Yes [id number] 20mg Take 1 Univers 20 mg 6-26 tablet by ity of tablet 00:00: mouth [place] 00 every 6 Medical (six) Branch hours as needed for Abdominal pain. dicyclomine 2022-0 Yes [id number] 20mg Take 1 [facility] 20 mg 6-26 tablet by ity of tablet 00:00: mouth [place] 00 every 6 Medical (six) Branch hours as needed for Abdominal pain. dicyclomine 2022-0 Yes [id number] 20mg Take 1 [facility] 20 mg 6-26 tablet by ity of tablet 00:00: mouth [place] 00 every 6 Medical (six) Branch hours as needed for Abdominal pain. dicyclomine 2022-0 Yes [id number] 20mg Take 1 [facility] 20 mg 6-26 tablet by ity of tablet 00:00: mouth [place] 00 every 6 Medical (six) Branch hours as needed for Abdominal pain. dicyclomine Yes [id number] 20mg Take 1 [facility] 20 mg 6-26 tablet by ity of tablet 00:00: mouth [place] 00 every 6 Medical (six) Branch hours as needed for Abdominal pain. dicyclomine Yes [id number] 20mg Take 1 Univers 20 mg 6-26 [...] 14:00: Cozaar) Tan[place] 00 Hydrochloro No Notes: [place] to thiazide 25 3-26 (Same as: l MG Oral 14:00: Hydrodiuri Herm radha Tablet 00 l) With food. topiramate No Notes: Memor ia 3-26 (Same As: l 14:00: Topamax) [place] 00 "Do Not Crush" Hazardous Drug Group 3:Reproduc tive risk Hazardous Drug -- Refer to safe handling procedure PPE Matrix Aspirin 81 No Notes: Do Me moria MG Enteric 3-26 not crush l Coated 14:00: or chew. Tanvir Tablet 00 (Same As: Ecotrin) Losartan No Notes: Memoria 3-26 (Same as: l 14:00: Cozaar) [place] 00 Hydrochloro No Notes: [place] to thiazide 25 3-26 (Same as: l MG Oral 14:00: Hydrodiuri Herm radha Tablet 00 l) With food. topiramate No Notes: Memor ia 3-26 (Same As: l 14:00: Topamax) Tanvir 00 "Do Not Crush" Hazardous Drug Group 3:Reproduc tive risk Hazardous Drug -- Refer to safe handling procedure PPE Matrix Aspirin 81 No Notes: Do Me moria MG Enteric 3-26 not crush l Coated 14:00: or chew. [place] Tablet 00 (Same As: Ecotrin) Losartan No Notes: Memoria 3-26 (Same as: l 14:00: Cozaar) [place] 00 Hydrochloro No Notes: [place] to thiazide 25 3-26 (Same as: l MG Oral 14:00: Hydrodiuri Herm radha Tablet 00 l) With food. topiramate No Notes: Memor ia 3-26 (Same As: l 14:00: Topamax) Tanvir 00 "Do Not Crush" Hazardous Drug Group 3:Reproduc tive risk Hazardous Drug -- Refer to safe handling procedure PPE Matrix Aspirin 81 No Notes: Do Me moria MG Enteric 3-26 not crush l Coated 14:00: or chew. Tanvir Tablet 00 (Same As: Ecotrin) Losartan No Notes: Memoria 3-26 (Same as: l 14:00: Cozaar) Tanvir 00 Hydrochloro No Notes: [place] to thiazide [...] not crush l Coated 14:00: or chew. [place] Tablet 00 (Same As: Ecotrin) Losartan No Notes: Memoria 3-26 (Same as: l 14:00: Cozaar) [place] 00 Hydrochloro No Notes: [place] to thiazide [...] 02:00: Lipitor) donepezil No Notes: Memori a 05-31 (Same as: l 02:00: Aricept) atorvastati No Notes: [place] to n 05-31 (Same as: l 02:00: Lipitor) donepezil No Notes: Memori a 05-31 (Same as: l 02:00: Aricept) atorvastati No Notes: [place] to n 05-31 (Same as: l 02:00: Lipitor) donepezil No Notes: Memori a 05-31 (Same as: l 02:00: Aricept) atorvastati No Notes: [place] to n 05-31 (Same as: l 02:00: Lipitor) donepezil No Notes: Memori a 05-31 (Same as: l 02:00: Aricept) atorvastati No Notes: [place] to n 05-31 (Same as: l 02:00: Lipitor) donepezil No Notes: Memori a 05-31 (Same as: l 02:00: Aricept) Albuterol No Notes: Memori a 0.833 MG/ML 05-30 (Same as: l / 22:42: Duoneb) Ipratropium 00 [place] 0.167 MG/ML Inhalant Solution [DuoNeb] tramadol No Notes: Not Mem oria hydrochlori 05-30 to exceed l de 50 MG 22:42: 400mg/day. Her [place] Oral Tablet 00 (Same As: Ultram) Nitroglycer No Notes: [place] to in 05-30 (Same l 22:42: as:Nitroqu ick, Nitrostat) "Do Not Crush" Sublingual tablet Hydralazine No Notes: [place] to -25 (Same as: l 22:42: Apresoline ) Push over 5 minutes Albuterol No Notes: Memori a 0.833 MG/ML -25 (Same as: l / 22:42: Duoneb) [place] Ipratropium 00 [place] 0.167 MG/ML Inhalant Solution [DuoNeb] tramadol No Notes: Not Mem oria hydrochlori 3-25 to exceed l de 50 MG 22:42: 400mg/day. Her [place] Oral Tablet 00 (Same As: Ultram) Nitroglycer No Notes: [place] to in - (Same l 22:42: as:Nitroqu [place] 00 ick, Nitrostat) "Do Not Crush" Sublingual tablet Hydralazine No Notes: [place] to -25 (Same as: l 22:42: Apresoline [place] 00 ) Push over 5 minutes Albuterol No Notes: Memori a 0.833 MG/ML - (Same as: l / 22:42: Duoneb) Tanvir Ipratropium 00 [place] 0.167 MG/ML Inhalant Solution [DuoNeb] tramadol No Notes: Not Mem oria hydrochlori - to exceed l de 50 MG 22:42: 400mg/day. Her [place] Oral Tablet 00 (Same As: Ultram) Nitroglycer No Notes: [place] to in 05-30 (Same l 22:42: as:Nitroqu Tanvir 00 ick, Nitrostat) "Do Not Crush" Sublingual tablet Hydralazine No Notes: [place] to -25 (Same as: l 22:42: Apresoline Tanvir 00 ) Push over 5 minutes Albuterol No Notes: Memori a 0.833 MG/ML -25 (Same as: l / 22:42: Duoneb) [place] Ipratropium 00 [place] 0.167 MG/ML Inhalant Solution [DuoNeb] tramadol No Notes: Not Mem oria hydrochlori 3-25 to exceed l de 50 MG 22:42: 400mg/day. Her [place] Oral Tablet 00 (Same As: Ultram) Nitroglycer No Notes: [place] to in -25 (Same l 22:42: as:Nitroqu Tanvir 00 ick, Nitrostat) "Do Not Crush" Sublingual tablet Hydralazine No Notes: [place] to -25 (Same as: l 22:42: Apresoline Tanvir ) Push over 5 minutes Albuterol No Notes: Memori a 0.833 MG/ML 05-30 (Same as: l / 22:42: Duoneb) Tanvir Ipratropium 00 [place] 0.167 MG/ML Inhalant Solution [DuoNeb] tramadol No Notes: Not Mem oria hydrochlori 05-30 to exceed l de 50 MG 22:42: 400mg/day. Her [place] Oral Tablet 00 (Same As: Ultram) Nitroglycer No Notes: [place] to in 05-30 (Same l 22:42: as:Nitroqu [place] ick, Nitrostat) "Do Not Crush" Sublingual tablet Hydralazine No Notes: [place] to -25 (Same as: l 22:42: Apresoline [place] ) Push over 5 minutes Docusate No Notes: Memoria 3-25 (Same as: l 22:00: Colace) [place] 00 (Do Not Crush) Docusate No Notes: [place] 3-25 (Same as: l 22:00: Colace) Tanvir 00 (Do Not Crush) Docusate No Notes: [place] 3-25 (Same as: l 22:00: Colace) Tanvir 00 (Do Not Crush) Docusate No Notes: Memoria 3-25 (Same as: l 22:00: Colace) Tanvir 00 (Do Not Crush) Docusate No Notes: Memoria 3-25 (Same as: l 22:00: Colace) [place] 00 (Do Not Crush) Dextrose No 250 mL, Memori a 10% in 05-30 Rate: 999 l Water IV 21:44: ml/hr, Tanvir 00 Infuse over: 0.3 hr, Route: IV, Total Volume: 250, Start date: 05/30/21 16:44:00 CDT, Duration: 30 day, Stop date: 06/29/21 16:43:00 CDT, PRN Blood Glucose Results, 0 Dextrose 2022-0 No 250 mL, Memori a 10% in 05-30 Rate: 999 l [place] IV 21:44: ml/hr, Tanvir 00 Infuse over: 0.3 hr, Route: IV, Total Volume: 250, Start date: 05/30/21 16:44:00 CDT, Duration: 30 day, Stop date: 06/29/21 16:43:00 CDT, PRN Blood Glucose Results, 0 Dextrose 2022-0 No 250 mL, Memori a 10% in 05-30 Rate: 999 l [place] IV 21:44: ml/hr, Tanvir 00 Infuse over: 0.3 hr, Route: IV, Total Volume: 250, Start date: 05/30/21 16:44:00 CDT, Duration: 30 day, Stop date: 06/29/21 16:43:00 CDT, PRN Blood Glucose Results, 0 Dextrose 2-0 No 250 mL, Memori a 10% in 05-30 Rate: 999 l Water IV 21:44: ml/hr, [place] 00 Infuse over: 0.3 hr, Route: IV, Total Volume: 250, Start date: 05/30/21 16:44:00 CDT, Duration: 30 day, Stop date: 06/29/21 16:43:00 CDT, PRN Blood Glucose Results, 0 Dextrose 2-0 No 250 mL, Memori a 10% in 05-30 Rate: 999 l Water IV 21:44: ml/hr, Tanvir 00 Infuse over: 0.3 hr, Route: IV, Total Volume: 250, Start date: 05/30/21 16:44:00 CDT, Duration: 30 day, Stop date: 06/29/21 16:43:00 CDT, PRN Blood Glucose Results, 0 Dextrose 2022-0 No 125 mL, Memori a 10% in 05-30 Rate: 999 l Water IV 21:43: ml/hr, Preston 00 Infuse over: 0.1 hr, Route: IV, Total Volume: 125, Start date: 05/30/21 16:43:00 CDT, Duration: 30 day, Stop date: 06/29/21 16:42:00 CDT, PRN Blood Glucose Results, 0 Dextrose 2022-0 No 125 mL, Memori a 10% in 05-30 Rate: 999 l Water IV 21:43: ml/hr, Tanvir 00 Infuse over: 0.1 hr, Route: IV, Total Volume: 125, Start date: 05/30/21 16:43:00 CDT, Duration: 30 day, Stop date: 06/29/21 16:42:00 CDT, PRN Blood Glucose Results, 0 Dextrose 2-0 No 125 mL, Memori a 10% in 05-30 Rate: 999 l Water IV 21:43: ml/hr, Preston 00 Infuse over: 0.1 hr, Route: IV, Total Volume: 125, Start date: 05/30/21 16:43:00 CDT, Duration: 30 day, Stop date: 06/29/21 16:42:00 CDT, PRN Blood Glucose Results, 0 Dextrose 2022-0 No 125 mL, Memori a 10% in 05-30 Rate: 999 l Water IV 21:43: ml/hr, Preston 00 Infuse over: 0.1 hr, Route: IV, Total Volume: 125, Start date: 05/30/21 16:43:00 CDT, Duration: 30 day, Stop date: 06/29/21 16:42:00 CDT, PRN Blood Glucose Results, 0 Dextrose 2-0 No 125 mL, Memori a 10% in 05-30 Rate: 999 l Water IV 21:43: ml/hr, Infuse over: 0.1 hr, Route: IV, Total Volume: 125, Start date: 05/30/21 16:43:00 CDT, Duration: 30 day, Stop date: 06/29/21 16:42:00 CDT, PRN Blood Glucose Results, 0 Dextrose 2022-0 No 25 mL, Memoria 50% Syringe 05-30 Route: l (D50W) 21:31: IVP, Dosing Weight 71.818, kg, PRN, PRN Blood Glucose Results, Start date: 05/30/21 16:31:00 CDT, Duration: 30 day, Stop date: 06/29/21 16:30:00 CDT Glucagon 2022-0 No 1 mg, Memoria 05-30 Route: IM, l 21:31: Drug form: Tanvir 00 PDR/INJ, PRN, Dosing Weight 71.818, kg, PRN Blood Glucose Results, Start date: 05/30/21 16:31:00 CDT, Duration: 30 day, Stop date: 06/29/21 16:30:00 CDT, 0 Ondansetron 2021-0 No Notes: [place] to 3-25 (Same as: l 21:31: Zofran) MEDICATION WASTE Product Size: 4 mg Product Wasted: ___ mg Acetaminoph No Notes: Do M emoria en 3-25 not exceed l 21:31: 4 gm/day. (Same as: Tylenol) Dextrose 2021-0 No 25 mL, Memoria 50% Syringe 3-25 Route: l (D50W) 21:31: IVP, Dosing Weight 71.818, kg, PRN, PRN Blood Glucose Results, Start date: 05/30/21 16:31:00 CDT, Duration: 30 day, Stop date: 06/29/21 16:30:00 CDT Glucagon 2021-0 No 1 mg, Memoria 3-25 Route: IM, l 21:31: Drug form: PDR/INJ, PRN, Dosing Weight 71.818, kg, PRN Blood Glucose Results, Start date: 05/30/21 16:31:00 CDT, Duration: 30 day, Stop date: 06/29/21 16:30:00 CDT, 0 Ondansetron 2021-0 No Notes: [place] to 3-25 (Same as: l 21:31: Zofran) MEDICATION WASTE Product Size: 4 mg Product Wasted: ___ mg Acetaminoph 0 No Notes: Do M emoria en 3-25 not exceed l 21:31: 4 gm/day. Tanvir 00 (Same as: Tylenol) Dextrose 2021-0 No 25 mL, Memoria 50% Syringe 3-25 Route: l (D50W) 21:31: IVP, Dosing Weight 71.818, kg, PRN, PRN Blood Glucose Results, Start date: 05/30/21 16:31:00 CDT, Duration: 30 day, Stop date: 06/29/21 16:30:00 CDT Glucagon 2022-0 No 1 mg, Memoria 3-25 Route: IM, l 21:31: Drug form: Preston 00 PDR/INJ, PRN, Dosing Weight 71.818, kg, PRN Blood Glucose Results, Start date: 05/30/21 16:31:00 CDT, Duration: 30 day, Stop date: 06/29/21 16:30:00 CDT, 0 Ondansetron 2021-0 No Notes: [place] to 3-25 (Same as: l 21:31: Zofran) MEDICATION WASTE Product Size: 4 mg Product Wasted: ___ mg Acetaminoph 2021-0 No Notes: Do M emoria en 3-25 not exceed l 21:31: 4 gm/day. (Same as: Tylenol) Dextrose 202-0 No 25 mL, Memoria 50% Syringe 3-25 Route: l (D50W) 21:31: IVP, Dosing Weight 71.818, kg, PRN, PRN Blood Glucose Results, Start date: 05/30/21 16:31:00 CDT, Duration: 30 day, Stop date: 06/29/21 16:30:00 CDT Glucagon 2-0 No 1 mg, Memoria 3-25 Route: IM, l 21:31: Drug form: Tanvir 00 PDR/INJ, PRN, Dosing Weight 71.818, kg, PRN Blood Glucose Results, Start date: 05/30/21 16:31:00 CDT, Duration: 30 day, Stop date: 06/29/21 16:30:00 CDT, 0 Ondansetron 2021-0 No Notes: [place] to 3-25 (Same as: l 21:31: Zofran) MEDICATION WASTE Product Size: 4 mg Product Wasted: ___ mg Acetaminoph 2021-0 No Notes: Do M emoria en 3-25 not exceed l 21:31: 4 gm/day. (Same as: Tylenol) Dextrose 202-0 No 25 mL, Memoria 50% Syringe 3-25 Route: l (D50W) 21:31: IVP, Tanvir 00 Dosing Weight 71.818, kg, PRN, PRN Blood Glucose Results, Start date: 05/30/21 16:31:00 CDT, Duration: 30 day, Stop date: 06/29/21 16:30:00 CDT Glucagon No 1 mg, Memoria 3-25 Route: IM, l 21:31: Drug form: PDR/INJ, PRN, Dosing Weight 71.818, kg, PRN Blood Glucose Results, Start date: 05/30/21 16:31:00 CDT, Duration: 30 day, Stop date: 06/29/21 16:30:00 CDT, 0 Ondansetron No Notes: [place] to 3-25 (Same as: l 21:31: Zofran) MEDICATION WASTE Product Size: 4 mg Product Wasted: ___ mg Acetaminoph No Notes: Do M emoria en 3-25 not exceed l 21:31: 4 gm/day. (Same as: Tylenol) topiramate Yes = 1 tab, Mem oria 25 mg oral 3-23 PO, BID, # l tablet 14:04: 180 tab, 3 Eugenia nn 00 Refill(s), Pharmacy: [facility] STORE [id number], 172.72, cm, 05/08/21 9:02:00 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, Height, 70.455, kg, 05/08/21 9:02:00 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, Weight topiramate 0 Yes = 1 tab, Mem oria 25 mg oral 3-23 PO, BID, # l tablet 14:04: 180 tab, 3 Eugenia nn 00 Refill(s), Pharmacy: [facility] STORE [id number], 172.72, cm, 05/08/21 9:02:00 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, Height, 70.455, kg, 05/08/21 9:02:00 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, Weight topiramate 0 Yes = 1 tab, Mem oria 25 mg oral 3-23 PO, BID, # l tablet 14:04: 180 tab, 3 Eugenia nn 00 Refill(s), Pharmacy: [facility] STORE [id number], 172.72, cm, 05/08/21 9:02:00 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, Height, 70.455, kg, 05/08/21 9:02:00 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, Weight topiramate 2021-0 Yes = 1 tab, Mem oria 25 mg oral 3-23 PO, BID, # l tablet 14:04: 180 tab, 3 Eugenia nn 00 Refill(s), Pharmacy: [facility] STORE [id number], 172.72, cm, 05/08/21 9:02:00 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, Height, 70.455, kg, 05/08/21 9:02:00 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, Weight topiramate 2021-0 Yes = 1 tab, Mem oria 25 mg oral 3-23 PO, BID, # l tablet 14:04: 180 tab, 3 Eugenia nn 00 Refill(s), Pharmacy: [facility] STORE [id number], 172.72, cm, 05/08/21 9:02:00 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, Height, 70.455, kg, 05/08/21 9:02:00 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, Weight topiramate 2021-0 Yes 25 mg = 1 Me moria 25 mg oral 3-03 tab, PO, l tablet 15:26: Q12H, # 60 Eugenia nn 00 tab, 3 Refill(s), Pharmacy: [facility] #[id number], 172.72, cm, 05/08/21 9:02:00 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, Height, 70.455, kg, 05/08/21 9:02:00 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, Weight donepezil 5 2021-0 Yes 5 mg = 1 Me moria mg oral 3-03 tab, PO, l tablet 15:26: Bedtime, # Eugenia nn 00 30 tab, 3 Refill(s), Pharmacy: [facility] ST[facility] #[id number], 172.72, cm, 05/08/21 9:02:00 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, Height, 70.455, kg, 05/08/21 9:02:00 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, Weight topiramate 2021-0 Yes 25 mg = 1 Me moria 25 mg oral 3-03 tab, PO, l tablet 15:26: Q12H, # 60 Eugenia nn 00 tab, 3 Refill(s), Pharmacy: [facility] #[id number], 172.72, cm, 05/08/21 9:02:00 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, Height, 70.455, kg, 05/08/21 9:02:00 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, Weight donepezil 5 2-0 Yes 5 mg = 1 Me moria mg oral 3-03 tab, PO, l tablet 15:26: Bedtime, # Eugenia nn 00 30 tab, 3 Refill(s), Pharmacy: [facility] #[id number], 172.72, cm, 05/08/21 9:02:00 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, Height, 70.455, kg, 05/08/21 9:02:00 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, Weight topiramate 2-0 Yes 25 mg = 1 Me moria 25 mg oral 3-03 tab, PO, l tablet 15:26: Q12H, # 60 Eugenia nn 00 tab, 3 Refill(s), [facility][id number], 172.72, cm, 05/08/21 9:02:00 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, Height, 70.455, kg, 05/08/21 9:02:00 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, Weight donepezil 5 2021-0 Yes 5 mg = 1 Me moria mg oral 3-03 tab, PO, l tablet 15:26: Bedtime, # Eugenia nn 00 30 tab, 3 Refill(s), [facility][id number], 172.72, cm, 05/08/21 9:02:00 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, Height, 70.455, kg, 05/08/21 9:02:00 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, Weight topiramate 2021-0 Yes 25 mg = 1 Me moria 25 mg oral 3-03 tab, PO, l tablet 15:26: Q12H, # 60 Eugenia nn 00 tab, 3 Refill(s), Pharmacy: [facility] #[id number], 172.72, cm, 05/08/21 9:02:00 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, Height, 70.455, kg, 05/08/21 9:02:00 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, Weight donepezil 5 2022-0 Yes 5 mg = 1 Me moria mg oral 3-03 tab, PO, l tablet 15:26: Bedtime, # Eugenia nn 00 30 tab, 3 Refill(s), [id number], 172.72, cm, 05/08/21 9:02:00 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, Height, 70.455, kg, 05/08/21 9:02:00 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, Weight topiramate Yes 25 mg = 1 Me moria 25 mg oral 3-03 tab, PO, l tablet 15:26: Q12H, # 60 Eugenia nn 00 tab, 3 Refill(s), Pharmacy: [facility] #[id number], 172.72, cm, 05/08/21 9:02:00 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, Height, 70.455, kg, 05/08/21 9:02:00 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, Weight donepezil 5 Yes 5 mg = 1 Me moria mg oral 3-03 tab, PO, l tablet 15:26: Bedtime, # Eugenia nn 00 30 tab, 3 Refill(s), Pharmacy: [facility] #[id number], 172.72, cm, 05/08/21 9:02:00 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, Height, 70.455, kg, 05/08/21 9:02:00 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, Weight Aspirin No Notes: Do Memor ia 1-31 not crush l 15:00: or chew. (Same As: Ecotrin) Aspirin No Notes: Do Memor ia 1-31 not crush l 15:00: or chew. (Same As: Ecotrin) Aspirin No Notes: Do Memor ia 1-31 not crush l 15:00: or chew. (Same As: Ecotrin) Aspirin No Notes: Do Memor ia 1-31 not crush l 15:00: or chew. (Same As: Ecotrin) Aspirin No Notes: Do Memor ia 1-31 not crush l 15:00: or chew. (Same As: Ecotrin) sennosides, No Notes: [place] to [facility] - (Same as: l 03:00: Senokot) atorvastati No Notes: [place] to n - Same as l 03:00: Lipitor donepezil No Notes: Memori a - (Same as: l 03:00: Aricept) sennosides, No Notes: [place] to [facility] 1-31 (Same as: l 03:00: Senokot) Tanvir 00 atorvastati No Notes: [place] to n 1-31 Same as l 03:00: Lipitor Tanvir donepezil No Notes: Memori a 1-31 (Same as: l 03:00: Aricept) sennosides, No Notes: [place] to [facility] 1-31 (Same as: l 03:00: Senokot) atorvastati No Notes: [place] to n 1-31 Same as l 03:00: Lipitor [place] donepezil No Notes: Memori a 1-31 (Same as: l 03:00: Aricept) sennosides, No Notes: [place] to [facility] 1-31 (Same as: l 03:00: Senokot) atorvastati No Notes: [place] to n 1-31 Same as l 03:00: Lipitor [place] 00 donepezil No Notes: Memori a 1-31 (Same as: l 03:00: Aricept) sennosides, No Notes: [place] to [facility] 1-31 (Same as: l 03:00: Senokot) atorvastati No Notes: [place] to n 1-31 Same as l 03:00: Lipitor [place] donepezil No Notes: Memori a 1-31 (Same as: l 03:00: Aricept) topiramate Yes 25 mg = 1 Me moria 25 mg oral 1-30 tab, PO, l tablet 22:52: Q12H, # 60 Eugenia nn 00 tab, 3 Refill(s), Pharmacy: [facility] #[id number], 172.72, cm, 04/06/21 6:38:00 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, Height, 69.006, kg, 04/06/21 6:38:00 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, Weight topiramate Yes 25 mg = 1 Me moria 25 mg oral 1-30 tab, PO, l tablet 22:52: Q12H, # 60 Eugenia nn 00 tab, 3 Refill(s), Pharmacy: [facility] #[id number], 172.72, cm, 04/06/21 6:38:00 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, Height, 69.006, kg, 04/06/21 6:38:00 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, Weight topiramate 2-0 Yes 25 mg = 1 Me moria 25 mg oral 1-30 tab, PO, l tablet 22:52: Q12H, # 60 Eugenia nn 00 tab, 3 Refill(s), Pharmacy: [facility] #[id number], 172.72, cm, 04/06/21 6:38:00 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, Height, 69.006, kg, 04/06/21 6:38:00 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, Weight topiramate 2-0 Yes 25 mg = 1 Me moria 25 mg oral 1-30 tab, PO, l tablet 22:52: Q12H, # 60 Eugenia nn 00 tab, 3 Refill(s), Pharmacy: [facility] #[id number], 172.72, cm, 04/06/21 6:38:00 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, Height, 69.006, kg, 04/06/21 6:38:00 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, Weight topiramate 2-0 Yes 25 mg = 1 Me moria 25 mg oral 1-30 tab, PO, l tablet 22:52: Q12H, # 60 Eugenia nn 00 tab, 3 Refill(s), Pharmacy: [facility] #[id number], 172.72, cm, 04/06/21 6:38:00 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, Height, 69.006, kg, 04/06/21 6:38:00 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, Weight losartan 50 2-0 Yes 100 mg = 2 Memoria mg oral 1-30 tab, PO, l tablet 22:51: Daily, # Preston 00 30 tab, 3 Refill(s), Pharmacy: [facility] #[id number], 172.72, cm, 04/06/21 6:38:00 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, Height, 69.006, kg, 04/06/21 6:38:00 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, Weight Hydrochloro 2022-0 Yes 25 mg = 1 M emoria thiazide 25 1-30 tab, PO, l MG Oral 22:51: Daily, # Eric n Tablet 00 30 tab, 3 Refill(s), Pharmacy: [facility] #[id number], 172.72, cm, 04/06/21 6:38:00 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, Height, 69.006, kg, 04/06/21 6:38:00 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, Weight donepezil 5 2021-0 Yes 5 mg = 1 Me moria mg oral 1-30 tab, PO, l tablet 22:51: Bedtime, # Eugenia nn 00 30 tab, 3 Refill(s), Pharmacy: [facility] #[id number], 172.72, cm, 04/06/21 6:38:00 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, Height, 69.006, kg, 04/06/21 6:38:00 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, Weight atorvastati 2021-0 Yes 80 mg = 1 M emoria n 80 mg 1-30 tab, PO, l oral tablet 22:51: Bedtime, # Preston 00 30 tab, 3 Refill(s), Pharmacy: [facility] #[id number], 172.72, cm, 04/06/21 6:38:00 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, Height, 69.006, kg, 04/06/21 6:38:00 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, Weight losartan 50 2021-0 Yes 100 mg = 2 Memoria mg oral 1-30 tab, PO, l tablet 22:51: Daily, # Tanvir 00 30 tab, 3 Refill(s), Pharmacy: [facility] #[id number], 172.72, cm, 04/06/21 6:38:00 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, Height, 69.006, kg, 04/06/21 6:38:00 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, Weight Hydrochloro 2021-0 Yes 25 mg = 1 M emoria thiazide 25 1-30 tab, PO, l MG Oral 22:51: Daily, # Eric n Tablet 00 30 tab, 3 Refill(s), Pharmacy: [facility] #[id number], 172.72, cm, 04/06/21 6:38:00 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, Height, 69.006, kg, 04/06/21 6:38:00 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, Weight donepezil 5 2021-0 Yes 5 mg = 1 Me moria mg oral 1-30 tab, PO, l tablet 22:51: Bedtime, # Eugenia nn 00 30 tab, 3 Refill(s), Pharmacy: [facility] #[id number], 172.72, cm, 04/06/21 6:38:00 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, Height, 69.006, kg, 04/06/21 6:38:00 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, Weight atorvastati 2021-0 Yes 80 mg = 1 M emoria n 80 mg 1-30 tab, PO, l oral tablet 22:51: Bedtime, # Preston 00 30 tab, 3 Refill(s), Pharmacy: [facility] #[id number], 172.72, cm, 04/06/21 6:38:00 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, Height, 69.006, kg, 04/06/21 6:38:00 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, Weight losartan 50 2021-0 Yes 100 mg = 2 Memoria mg oral 1-30 tab, PO, l tablet 22:51: Daily, # Preston 00 30 tab, 3 Refill(s), Pharmacy: [facility] #[id number], 172.72, cm, 04/06/21 6:38:00 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, Height, 69.006, kg, 04/06/21 6:38:00 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, Weight Hydrochloro 2021-0 Yes 25 mg = 1 M emoria thiazide 25 1-30 tab, PO, l MG Oral 22:51: Daily, # Eric n Tablet 00 30 tab, 3 Refill(s), Pharmacy: [facility] #[id number], 172.72, cm, 04/06/21 6:38:00 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, Height, 69.006, kg, 04/06/21 6:38:00 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, Weight donepezil 5 2021-0 Yes 5 mg = 1 Me moria mg oral 1-30 tab, PO, l tablet 22:51: Bedtime, # Eugenia nn 00 30 tab, 3 Refill(s), Pharmacy: [facility] #[id number], 172.72, cm, 04/06/21 6:38:00 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, Height, 69.006, kg, 04/06/21 6:38:00 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, Weight atorvastati 2021-0 Yes 80 mg = 1 M emoria n 80 mg 1-30 tab, PO, l oral tablet 22:51: Bedtime, # Tanvir 00 30 tab, 3 Refill(s), Pharmacy: [facility] #[id number], 172.72, cm, 04/06/21 6:38:00 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, Height, 69.006, kg, 04/06/21 6:38:00 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, Weight losartan 50 2021-0 Yes 100 mg = 2 Memoria mg oral 1-30 tab, PO, l tablet 22:51: Daily, # Tanvir 00 30 tab, 3 Refill(s), Pharmacy: [facility] #[id number], 172.72, cm, 04/06/21 6:38:00 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, Height, 69.006, kg, 04/06/21 6:38:00 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, Weight Hydrochloro 2021-0 Yes 25 mg = 1 M emoria thiazide 25 1-30 tab, PO, l MG Oral 22:51: Daily, # Eric n Tablet 00 30 tab, 3 Refill(s), Pharmacy: [facility] #[id number], 172.72, cm, 04/06/21 6:38:00 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, Height, 69.006, kg, 04/06/21 6:38:00 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, Weight donepezil 5 2021-0 Yes 5 mg = 1 Me moria mg oral 1-30 tab, PO, l tablet 22:51: Bedtime, # Eugenia nn 00 30 tab, 3 Refill(s), Pharmacy: [facility] #[id number], 172.72, cm, 04/06/21 6:38:00 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, Height, 69.006, kg, 04/06/21 6:38:00 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, Weight atorvastati 2021-0 Yes 80 mg = 1 M emoria n 80 mg 1-30 tab, PO, l oral tablet 22:51: Bedtime, # Tanvir 00 30 tab, 3 Refill(s), Pharmacy: [facility] #[id number], 172.72, cm, 04/06/21 6:38:00 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, Height, 69.006, kg, 04/06/21 6:38:00 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, Weight losartan 50 2021-0 Yes 100 mg = 2 Memoria mg oral 1-30 tab, PO, l tablet 22:51: Daily, # Tanvir 00 30 tab, 3 Refill(s), Pharmacy: [facility] #[id number], 172.72, cm, 04/06/21 6:38:00 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, Height, 69.006, kg, 04/06/21 6:38:00 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, Weight Hydrochloro 2021-0 Yes 25 mg = 1 M emoria thiazide 25 1-30 tab, PO, l MG Oral 22:51: Daily, # Eric n Tablet 00 30 tab, 3 Refill(s), Pharmacy: [facility] #[id number], 172.72, cm, 04/06/21 6:38:00 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, Height, 69.006, kg, 04/06/21 6:38:00 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, Weight donepezil 5 0 Yes 5 mg = 1 Me moria mg oral 1-30 tab, PO, l tablet 22:51: Bedtime, # Eugenia nn 30 tab, 3 Refill(s), Pharmacy: [facility] #[id number], 172.72, cm, 04/06/21 6:38:00 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, Height, 69.006, kg, 04/06/21 6:38:00 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, Weight atorvastati 2021-0 Yes 80 mg = 1 M emoria n 80 mg 1-30 tab, PO, l oral tablet 22:51: Bedtime, # Preston 00 30 tab, 3 Refill(s), Pharmacy: [facility] #[id number], 172.72, cm, 04/06/21 6:38:00 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, Height, 69.006, kg, 04/06/21 6:38:00 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, Weight Aspirin 81 2021-0 Yes 81 mg = 1 Me moria MG Enteric 1-30 tab, PO, l Coated 22:50: Daily, # Preston Tablet 00 30 tab, 3 Refill(s), Pharmacy: [facility] #[id number], 172.72, cm, 04/06/21 6:38:00 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, Height, 69.006, kg, 04/06/21 6:38:00 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, Weight Aspirin 81 2021-0 Yes 81 mg = 1 Me moria MG Enteric 1-30 tab, PO, l Coated 22:50: Daily, # Preston Tablet 00 30 tab, 3 Refill(s), Pharmacy: [facility] #[id number], 172.72, cm, 04/06/21 6:38:00 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, Height, 69.006, kg, 04/06/21 6:38:00 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, Weight Aspirin 81 2021-0 Yes 81 mg = 1 Me moria MG Enteric 1-30 tab, PO, l Coated 22:50: Daily, # Tanvir Tablet 00 30 tab, 3 Refill(s), Pharmacy: [facility] #[id number], 172.72, cm, 04/06/21 6:38:00 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, Height, 69.006, kg, 04/06/21 6:38:00 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, Weight Aspirin 81 2021-0 Yes 81 mg = 1 Me moria MG Enteric 1-30 tab, PO, l Coated 22:50: Daily, # Tanvir Tablet 00 30 tab, 3 Refill(s), Pharmacy: [facility] #[id number], 172.72, cm, 04/06/21 6:38:00 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, Height, 69.006, kg, 04/06/21 6:38:00 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, Weight Aspirin 81 2021-0 Yes 81 mg = 1 Me moria MG Enteric 1-30 tab, PO, l Coated 22:50: Daily, # Tanvir Tablet 00 30 tab, 3 Refill(s), Pharmacy: [facility] #[id number], 172.72, cm, 04/06/21 6:38:00 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, Height, 69.006, kg, 04/06/21 6:38:00 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, Weight Adenosine 2021-0 No Notes: For Me moria 1-30 diagnostic l 19:15: use only. Tanvir (Same as: Adenoscan) MEDICATION WASTE Product Size: 60 mg Product Wasted: ___ mg Adenosine 2021-0 No Notes: For Me moria 1-30 diagnostic l 19:15: use only. Tanvir (Same as: Adenoscan) MEDICATION WASTE Product Size: 60 mg Product Wasted: ___ mg Adenosine 2021-0 No Notes: For Me moria 1-30 diagnostic l 19:15: use only. Tanvir 00 (Same as: Adenoscan) MEDICATION WASTE Product Size: 60 mg Product Wasted: ___ mg Adenosine No Notes: For Me moria 1-30 diagnostic l 19:15: use only. Tanvir 00 (Same as: Adenoscan) MEDICATION WASTE Product Size: 60 mg Product Wasted: ___ mg Adenosine No Notes: For Me moria 1-30 diagnostic l 19:15: use only. (Same as: Adenoscan) MEDICATION WASTE Product Size: 60 mg Product Wasted: ___ mg Hydrochloro No Notes: [place] to thiazide 25 1-30 (Same as: l MG Oral 17:00: Hydrodiuri Herm radha Tablet 00 l) With food. zaar No Notes: Memoria 1-30 (Same as: l 17:00: Cozaar) Hydrochloro No Notes: [place] to thiazide 25 1-30 (Same as: l MG Oral 17:00: Hydrodiuri Herm radha Tablet 00 l) With food. Cozaar No Notes: Memoria 1-30 (Same as: l 17:00: Cozaar) [place] 00 Hydrochloro No Notes: [place] to thiazide 25 1-30 (Same as: l MG Oral 17:00: Hydrodiuri Herm radha Tablet 00 l) With food. za No Notes: Memoria 1-30 (Same as: l 17:00: Cozaar) Tanvir 00 Hydrochloro No Notes: [place] to thiazide 25 1-30 (Same as: l MG Oral 17:00: Hydrodiuri Herm radha Tablet 00 l) With food. Cozaar No Notes: Memoria 1-30 (Same as: l 17:00: Cozaar) Tanvir 00 Hydrochloro No Notes: [place] to thiazide [...] Waste Black Hydrochloro No 1 tab, [place] ot thiazide 25 1-30 Route: PO, l MG / 15:00: Drug Form: TAB, Potassium Dosing 100 MG Oral Weight Tablet 69.006, kg, Daily, Start date: 04/06/21 9:00:00 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, Duration: 30 day, Stop date: 05/05/21 9:00:00 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 topiramate No Notes: Memor ia 1-30 (Same As: l 15:00: Topamax) "Do Not Crush" Hazardous Drug Group 3:Reproduc tive risk Hazardous Drug -- Refer to safe handling procedure PPE Matrix POLYETHYLEN No Notes: [place] to E GLYCOL 1-30 Dissolve l 3350 15:00: in 8 oz of [place] 00 water or juice. (Same as: Miralax) Nicotine No Notes: Memoria 1-30 (Same as: l 15:00: Habitrol) Tanvir 00 "Remove old patch before applicatio n of new patch" WASTE: F/P - P Waste Black; E - P Waste Black Hydrochloro No 1 tab, [place] to thiazide 25 1-30 Route: PO, l MG / 15:00: Drug Form: Tanvir Losartan 00 TAB, Potassium Dosing 100 MG Oral Weight Tablet 69.006, kg, Daily, Start date: 04/06/21 9:00:00 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, Duration: 30 day, Stop date: 05/05/21 9:00:00 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 topiramate No Notes: Memor ia 1-30 (Same [...] No 1 tab, [place] to thiazide 25 04-06 Route: PO, l MG / 15:00: Drug Form: Tanvir Losartan 00 TAB, Potassium Dosing 100 MG Oral Weight Tablet 69.006, kg, Daily, Start date: 04/06/21 9:00:00 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, Duration: 30 day, Stop date: 05/05/21 9:00:00 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 topiramate No Notes: Memor ia 1-30 (Same As: l 15:00: Topamax) Tanvir "Do Not Crush" Hazardous Drug Group 3:Reproduc tive risk Hazardous Drug -- Refer to safe handling procedure PPE [employer] POLYETHYLEN No Notes: [place] to E GLYCOL 1-30 Dissolve l 3350 15:00: in 8 oz of [place]vir 00 water or juice. (Same as: Miralax) Nicotine No Notes: Memoria 1-30 (Same as: l 15:00: Habitrol) [place] 00 "Remove old patch before applicatio n of new patch" WASTE: F/P - P Waste Black; E - P Waste Black Hydrochloro No 1 tab, [place] to thiazide 25 1-30 Route: PO, l MG / 15:00: Drug Form: Tanvir Losartan 00 TAB, Potassium Dosing 100 MG Oral Weight Tablet 69.006, kg, Daily, Start date: 04/06/21 9:00:00 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, Duration: 30 day, Stop date: 05/05/21 9:00:00 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 topiramate No Notes: Memor ia -30 (Same As: l 15:00: Topamax) "Do Not Crush" Hazardous Drug Group 3:Reproduc tive risk Hazardous Drug -- Refer to safe handling procedure PPE Matrix POLYETHYLEN No Notes: [place] to E GLYCOL 1-30 Dissolve l 3350 15:00: in 8 oz of water or juice. (Same as: Miralax) Nicotine No Notes: Memoria 30 (Same as: l 15:00: Habitrol) "Remove old patch before applicatio n of new patch" WASTE: F/P - P Waste Black; E - P Waste Black Hydrochloro No 1 tab, [place] to thiazide 25 30 Route: PO, l MG / 15:00: Drug Form: Tanvir Losartan 00 TAB, Potassium Dosing 100 MG Oral Weight Tablet 69.006, kg, Daily, Start date: 04/06/21 9:00:00 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, Duration: 30 day, Stop date: 05/05/21 9:00:00 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 topiramate No Notes: Memor ia -30 (Same As: l 15:00: Topamax) "Do Not Crush" Hazardous Drug Group 3:Reproduc tive risk Hazardous Drug -- Refer to safe handling procedure PPE [facility] Heparin - No 4,000 Memoria one time 1-30 unit, 4 l bolus for 14:06: mL, Route: He rmann ACS 00 IVP, Drug form: INJ, ONCE, Dosing Weight 69.006, kg, Priority: STAT, Start date: 04/06/21 8:06:00 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, Stop date: 04/06/21 8:06:00 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, 0 Heparin 60 No Route: Memor ia unit/kg 1-30 IVP, PRN, l Bolus 14:06: 4,140.36 [place] (Heparin 00 unit, 4.14 Dosing mL, Drug Weight) form: INJ, PRN Heparin Protocol, Start date: 04/06/21 8:06:00 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, Stop date: 05/06/21 8:05:00 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, 30 day, 0 Heparin 30 No Route: Memor ia unit/kg 1-30 IVP, PRN, l Bolus 14:06: 2,100 [place] (Heparin 00 unit, 2.1 Dosing mL, Drug Weight) form: INJ, PRN Heparin Protocol, Start date: 04/06/21 8:06:00 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, Stop date: 05/06/21 8:05:00 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, 30 day, 0 heparin No Notes: Memoria additive 1-30 Total l 25,000 unit 14:06: Concentrat Tanvir [12 00 ion = 50 unit/kg/hr] unit/ ml + Premix Total Diluent volume = Sodium 500 ml Chloride Send Med 0.45% 500 Request 2 mL hours prior to next bag Albuterol No Notes: Memori a 0.833 MG/ML 1-30 (Same as: l / 14:06: Duoneb) [place] Ipratropium 00 [place] 0.167 MG/ML Inhalant Solution [DuoNeb] Heparin - No 4,000 Memoria one time 1-30 unit, 4 l bolus for 14:06: mL, Route: [facility] r[place] ACS 00 IVP, Drug form: INJ, ONCE, Dosing Weight 69.006, kg, Priority: STAT, Start date: 04/06/21 8:06:00 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, Stop date: 04/06/21 8:06:00 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, 0 Heparin 60 No Route: Memor ia unit/kg 1-30 IVP, PRN, l Bolus 14:06: 4,140.36 Tanvir (Heparin 00 unit, 4.14 Dosing mL, Drug Weight) form: INJ, PRN Heparin Protocol, Start date: 04/06/21 8:06:00 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, Stop date: 03/01/22 8:05:00 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, 30 day, 0 Heparin 30 No Route: Memor ia unit/kg 1-30 IVP, PRN, l Bolus 14:06: 2,100 Tanvir (Heparin 00 unit, 2.1 Dosing mL, Drug Weight) form: INJ, PRN Heparin Protocol, Start date: 04/06/21 8:06:00 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, Stop date: 05/06/21 8:05:00 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, 30 day, 0 heparin No Notes: Memoria additive 1-30 Total l 25,000 unit 14:06: Concentrat Tanvir [12 00 ion = 50 unit/kg/hr] unit/ ml + Premix Total Diluent volume = Sodium 500 ml Chloride Send Med 0.45% 500 Request 2 mL hours prior to next bag Albuterol No Notes: Memori a 0.833 MG/ML 1-30 (Same as: l / 14:06: Duoneb) [place] Ipratropium 00 [place] 0.167 MG/ML Inhalant Solution [DuoNeb] Heparin - No 4,000 Memoria one time 1-30 unit, 4 l bolus for 14:06: mL, Route: [facility] r[place] ACS 00 IVP, Drug form: INJ, ONCE, Dosing Weight 69.006, kg, Priority: STAT, Start date: 04/06/21 8:06:00 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, Stop date: 04/06/21 8:06:00 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, 0 Heparin 60 No Route: Memor ia unit/kg 1-30 IVP, PRN, l Bolus 14:06: 4,140.36 [place] (Heparin 00 unit, 4.14 Dosing mL, Drug Weight) form: INJ, PRN Heparin Protocol, Start date: 04/06/21 8:06:00 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, Stop date: 05/06/21 8:05:00 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, 30 day, 0 Heparin 30 No Route: Memor ia unit/kg 1-30 IVP, PRN, l Bolus 14:06: 2,100 [place] (Heparin 00 unit, 2.1 Dosing mL, Drug Weight) form: INJ, PRN Heparin Protocol, Start date: 04/06/21 8:06:00 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, Stop date: 05/06/21 8:05:00 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, 30 day, 0 heparin No Notes: Memoria additive 1-30 Total l 25,000 unit 14:06: Concentrat [place] [12 00 ion = 50 unit/kg/hr] unit/ ml + Premix Total Diluent volume = Sodium 500 ml Chloride Send Med 0.45% 500 Request 2 mL hours prior to next bag Albuterol No Notes: Memori a 0.833 MG/ML 1-30 (Same as: l / 14:06: Duoneb) [place] Ipratropium 00 [place] 0.167 MG/ML Inhalant Solution [DuoNeb] Heparin - No 4,000 Memoria one time 1-30 unit, 4 l bolus for 14:06: mL, Route: [facility] ACS 00 IVP, Drug form: INJ, ONCE, Dosing Weight 69.006, kg, Priority: STAT, Start date: 04/06/21 8:06:00 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, Stop date: 04/06/21 8:06:00 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, 0 Heparin 60 No Route: Memor ia unit/kg 1-30 IVP, PRN, l Bolus 14:06: 4,140.36 [place] (Heparin 00 unit, 4.14 Dosing mL, Drug Weight) form: INJ, PRN Heparin Protocol, Start date: 04/06/21 8:06:00 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, Stop date: 05/06/21 8:05:00 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, 30 day, 0 Heparin 30 No Route: Memor ia unit/kg 1-30 IVP, PRN, l Bolus 14:06: 2,100 Tanvir (Heparin 00 unit, 2.1 Dosing mL, Drug Weight) form: INJ, PRN Heparin Protocol, Start date: 04/06/21 8:06:00 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, Stop date: 05/06/21 8:05:00 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, 30 day, 0 heparin No Notes: Memoria additive 1-30 Total l 25,000 unit 14:06: Concentrat [place] [12 00 ion = 50 unit/kg/hr] unit/ ml + Premix Total Diluent volume = Sodium 500 ml Chloride Send Med 0.45% 500 Request 2 mL hours prior to next bag Albuterol No Notes: Memori a 0.833 MG/ML 1-30 (Same as: l / 14:06: Duoneb) [place] Ipratropium 00 [place] 0.167 MG/ML Inhalant Solution [DuoNeb] Heparin - No 4,000 Memoria one time 1-30 unit, 4 l bolus for 14:06: mL, Route: [facility] ACS 00 IVP, Drug form: INJ, ONCE, Dosing Weight 69.006, kg, Priority: STAT, Start date: 04/06/21 8:06:00 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, Stop date: 04/06/21 8:06:00 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, 0 Heparin 60 No Route: Memor ia unit/kg 1-30 IVP, PRN, l Bolus 14:06: 4,140.36 [place] (Heparin 00 unit, 4.14 Dosing mL, Drug Weight) form: INJ, PRN Heparin Protocol, Start date: 04/06/21 8:06:00 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, Stop date: 05/06/21 8:05:00 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, 30 day, 0 Heparin 30 No Route: Memor ia unit/kg 1-30 IVP, PRN, l Bolus 14:06: 2,100 [place] (Heparin 00 unit, 2.1 Dosing mL, Drug Weight) form: INJ, PRN Heparin Protocol, Start date: 04/06/21 8:06:00 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, Stop date: 05/06/21 8:05:00 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, 30 day, 0 heparin No Notes: Memoria additive 1-30 Total l 25,000 unit 14:06: Concentrat Tanvir [12 00 ion = 50 unit/kg/hr] unit/ ml + Premix Total Diluent volume = Sodium 500 ml Chloride Send Med 0.45% 500 Request 2 mL hours prior to next bag Albuterol No Notes: Memori a 0.833 MG/ML -30 (Same as: l / 14:06: Duoneb) Tanvir Ipratropium 00 [place] 0.167 MG/ML Inhalant Solution [DuoNeb] Dextrose No 12.5 gm, Memor ia 50% Syringe 1-30 25 mL, l (D50W) 12:56: Route: [place] 00 IVP, Drug Form: INJ, Dosing Weight 69.006, kg, PRN, PRN Blood Glucose Results, Start date: 04/06/21 6:56:00 CELL ATTENDANT HELPER, Duration: 30 day, Stop date: 05/06/21 6:55:00 CELL ATTENDANT HELPER, 0 Glucagon 2021-0 No 1 mg, Memoria 130 Route: IM, l 12:56: Drug form: Tanvir 00 PDR/INJ, PRN, Dosing Weight 69.006, kg, PRN Blood Glucose Results, Start date: 04/06/21 6:56:00 CELL ATTENDANT HELPER, Duration: 30 day, Stop date: 05/06/21 6:55:00 CELL ATTENDANT HELPER, 0 Potassium 2021- No Notes: Memori a Chloride 1-30 (Same [...] s with feeding tube less than 14 [place] (Dobhoff, J-tube etc) and pediatric and patients. potassium 2021- No Notes: Memori a phosphate-s 1-30 (Same as: l odium 12:56: Phos-NaK) phosphate 00 Each 1.5 250 mg-280 gm pkt has mg-160 mg 250mg oral powder phosphorou for s. Mix reconstitut w/2.5oz ion water and stir. potassium No Notes: Memori a phosphate 1-30 (Same as: l 12:56: K [place] 00 Phosphate) Infuse over 4 hour. Do not infuse phosphorou s concurrent ly in the same line as TPN or IVF that contains calcium. For double lumen central lines, phosphorou s may be infused in a separate lumen from TPN. sodium 2021- No Notes: Memoria phosphate 1-30 Infuse l 12:56: over 4 Tanvir 00 hour. Do not infuse phosphorou s concurrent ly in the same line as TPN or IVF that contains calcium. For double lumen central lines, phosphorou s may be infused in a separate lumen from TPN. Magnesium No Notes: Memori a Sulfate 1-30 WASTE: F/P l 12:56: - Sink; E [place] 00 - Municipal Trash Bin Magnesium No Notes: Memori a Oxide -30 (Same as: l 12:56: Mag-Ox 400) Magnesium oxide 557cx=814b g elemental magnesium Dose=____m g magnesium oxide (___mg elemental magnesium) Calcium No Notes: Memoria Gluconate 04-06 WASTE: F/P l 12:56: - Sink; E - Municipal Trash Bin Dextrose No 12.5 gm, Memor ia 50% Syringe 04-06 25 mL, l (D50W) 12:56: Route: IVP, Drug Form: INJ, Dosing Weight 69.006, kg, PRN, PRN Blood Glucose Results, Start date: 04/06/21 6:56:00 CELL ATTENDANT HELPER, Duration: 30 day, Stop date: 05/06/21 6:55:00 CELL ATTENDANT HELPER, 0 Glucagon No 1 mg, Memoria 04-06 Route: IM, l 12:56: Drug form: PDR/INJ, PRN, Dosing Weight 69.006, kg, PRN Blood Glucose Results, Start date: 04/06/21 6:56:00 CELL ATTENDANT HELPER, Duration: 30 day, Stop date: 05/06/21 6:55:00 CELL ATTENDANT HELPER, 0 Potassium No Notes: Memori a Chloride -30 (Same as: l :: K-Dur 20) "Do Not Crush" Give with food and full glass of water For patients unable to swallow tablet, dissolve in one half glass of water. Allow about 2 minutes for the tablets to disintegra te. Stir before giving to prepare slurry and administer . Please exclude Patient s with feeding tube less than 14 [place] (Dobhoff, J-tube etc) and pediatric and patients. potassium No Notes: Memori a phosphate-s -30 (Same as: l odium 12:56: Phos-NaK) phosphate 00 Each 1.5 250 mg-280 gm pkt has mg-160 mg 250mg oral powder phosphorou for s. Mix reconstitut w/2.5oz ion water and stir. potassium No Notes: Memori a phosphate -30 (Same as: l 12:56: K [place] 00 Phosphate) Infuse over 4 hour. Do not infuse phosphorou s concurrent ly in the same line as TPN or IVF that contains calcium. For double lumen central lines, phosphorou s may be infused in a separate lumen from TPN. sodium 2021- No Notes: Memoria phosphate 1-30 Infuse l 12:56: over 4 [place] 00 hour. Do not infuse phosphorou s [...] as: l 12:56: Mag-Ox 400) Magnesium oxide 999by=699p g elemental magnesium Dose=____m g magnesium oxide (___mg elemental magnesium) Calcium No Notes: Memoria Gluconate 04-06 WASTE: F/P l 12:56: - Sink; E - Municipal Trash Bin Dextrose No 12.5 gm, Memor ia 50% Syringe 30 25 mL, l (D50W) 12:56: Route: IVP, Drug Form: INJ, Dosing Weight 69.006, kg, PRN, PRN Blood Glucose Results, Start date: 04/06/21 6:56:00 CELL ATTENDANT HELPER, Duration: 30 day, Stop date: 05/06/21 6:55:00 CELL ATTENDANT HELPER, 0 Glucagon 0 No 1 mg, Memoria 30 Route: IM, l 12:56: Drug form: PDR/INJ, PRN, Dosing Weight 69.006, kg, PRN Blood Glucose Results, Start date: 04/06/21 6:56:00 CELL ATTENDANT HELPER, Duration: 30 day, Stop date: 05/06/21 6:55:00 CELL ATTENDANT HELPER, 0 Potassium 2021-0 No Notes: Memori a [...] s with feeding tube less than 14 [place] (Dobhoff, J-tube etc) and pediatric and patients. potassium No Notes: Memori a phosphate-s 1-30 (Same as: l odium 12:56: Phos-NaK) Tanvir phosphate 00 Each 1.5 250 mg-280 gm pkt has mg-160 mg 250mg oral powder phosphorou for s. Mix reconstitut w/2.5oz ion water and stir. potassium No Notes: Memori a phosphate 1-30 (Same as: l 12:56: K Tanvir 00 Phosphate) Infuse over 4 hour. Do [...] Oxide 1-30 (Same as: l 12:56: Mag-Ox [place] 00 400) Magnesium oxide 562mb=242g g elemental magnesium Dose=____m g magnesium oxide (___mg elemental magnesium) Calcium No Notes: Memoria Gluconate -30 WASTE: F/P l 12:56: - Sink; E - Municipal Trash Bin Dextrose No 12.5 gm, Memor ia 50% Syringe -30 25 mL, l (D50W) 12:56: Route: IVP, Drug Form: INJ, Dosing Weight 69.006, kg, PRN, PRN Blood Glucose Results, Start date: 04/06/21 6:56:00 CELL ATTENDANT HELPER, Duration: 30 day, Stop date: 05/06/21 6:55:00 CELL ATTENDANT HELPER, 0 Glucagon 2021-0 No 1 mg, Memoria 130 Route: IM, l 12:56: Drug form: Tanvir 00 PDR/INJ, PRN, Dosing Weight 69.006, kg, PRN Blood Glucose Results, Start date: 04/06/21 6:56:00 CELL ATTENDANT HELPER, Duration: 30 day, Stop date: 05/06/21 6:55:00 CELL ATTENDANT HELPER, 0 Potassium 2021-0 No Notes: Memori a [...] s with feeding tube less than 14 [place] (Dobhoff, J-tube etc) and pediatric and patients. potassium 2021- No Notes: Memori a phosphate-s 1-30 (Same as: l odium 12:56: Phos-NaK) phosphate 00 Each 1.5 250 mg-280 gm pkt has mg-160 mg 250mg oral powder phosphorou for s. Mix reconstitut w/2.5oz ion water and stir. potassium No Notes: Memori a phosphate 1-30 (Same as: l 12:56: K Tanvir 00 Phosphate) Infuse over 4 hour. Do not infuse phosphorou s concurrent ly in the same line as TPN or IVF that contains calcium. For double lumen central lines, phosphorou s may be infused in a separate lumen from TPN. sodium 2021- No Notes: Memoria phosphate 1-30 Infuse l 12:56: over 4 [place] 00 hour. Do not infuse phosphorou s concurrent ly in the same line as TPN or IVF that contains calcium. For double lumen central lines, phosphorou s may be infused in a separate lumen from TPN. Magnesium 2021- No Notes: Memori a Sulfate 1-30 WASTE: F/P l 12:56: - Sink; E 00 - Municipal Trash Bin Magnesium No Notes: Memori a Oxide 1-30 (Same as: l 12:56: Mag-Ox Tanvir 400) Magnesium oxide 825vg=154p g elemental magnesium Dose=____m g magnesium oxide (___mg elemental magnesium) Calcium No Notes: Memoria Gluconate 04-06 WASTE: F/P l 12:56: - Sink; E - Municipal Trash Bin Dextrose No 12.5 gm, Memor ia 50% Syringe 04-06 25 mL, l (D50W) 12:56: Route: IVP, Drug Form: INJ, Dosing Weight 69.006, kg, PRN, PRN Blood Glucose Results, Start date: 04/06/21 6:56:00 CELL ATTENDANT HELPER, Duration: 30 day, Stop date: 05/06/21 6:55:00 CELL ATTENDANT HELPER, 0 Glucagon No 1 mg, Memoria 04-06 Route: IM, l 12:56: Drug form: PDR/INJ, PRN, Dosing Weight 69.006, kg, PRN Blood Glucose Results, Start date: 04/06/21 6:56:00 CELL ATTENDANT HELPER, Duration: 30 day, Stop date: 05/06/21 6:55:00 CELL ATTENDANT HELPER, 0 Potassium No Notes: Memori a Chloride 04-06 (Same as: l 12:56: K-Dur 20) "Do Not Crush" Give with food and full glass of water For patients unable to swallow tablet, dissolve in one half glass of water. Allow about 2 minutes for the tablets to disintegra te. Stir before giving to prepare slurry and administer . Please exclude Patient s with feeding tube less than 14 [place] (Dobhoff, J-tube etc) and pediatric and patients. potassium No Notes: Memori a phosphate-s 04-06 (Same as: l odium 12:56: Phos-NaK) phosphate Each 1.5 250 mg-280 gm pkt has mg-160 mg 250mg oral powder phosphorou for s. Mix reconstitut w/2.5oz ion water and stir. potassium No Notes: Memori a phosphate -30 (Same as: l 12:56: K Tanvir Phosphate) Infuse over 4 hour. Do not infuse phosphorou s concurrent ly in the same line as TPN or IVF that contains calcium. For double lumen central lines, phosphorou s may be infused in a separate lumen from TPN. sodium No Notes: Memoria phosphate 1-30 Infuse l 12:56: over 4 [place] 00 hour. Do not infuse phosphorou s concurrent ly in the same line as TPN or IVF that contains calcium. For double lumen central lines, phosphorou s may be infused in a separate lumen from TPN. Magnesium No Notes: Memori a Sulfate 30 WASTE: F/P l 12:56: - Sink; E Tanvir 00 - Municipal Trash Bin Magnesium No Notes: Memori a Oxide 30 (Same as: l 12:56: Mag-Ox [place] 00 400) Magnesium oxide 034sg=368e g elemental magnesium Dose=____m g magnesium oxide (___mg elemental magnesium) Calcium No Notes: Memoria Gluconate 30 WASTE: F/P l 12:56: - Sink; E [place] 00 - Municipal Trash Bin donepezil 5 Yes = 1 tab, Me moria mg oral 5-11 PO, l tablet 15:21: Bedtime, # Eugenia nn 00 90 tab, 1 Refill(s), Pharmacy: [facility] #[id number], 175.26, cm, 01/16/20 10:50:00 CELL ATTENDANT HELPER, Height, 66.818, kg, 07/16/20 10:00:00 CDT, Weight donepezil 5 Yes = 1 tab, Me moria mg oral 5-11 PO, l tablet 15:21: Bedtime, # Eugenia nn 00 90 tab, 1 Refill(s), Pharmacy: [facility] #[id number], 175.26, cm, 01/16/20 10:50:00 CELL ATTENDANT HELPER, Height, 66.818, kg, 07/16/20 10:00:00 CDT, Weight donepezil 5 Yes = 1 tab, Me moria mg oral 5-11 PO, l tablet 15:21: Bedtime, # Eugenia nn 00 90 tab, 1 Refill(s), Pharmacy: [facility] #[id number], 175.26, cm, 01/16/20 10:50:00 CELL ATTENDANT HELPER, Height, 66.818, kg, 07/16/20 10:00:00 CDT, Weight donepezil 5 2020-0 Yes = 1 tab, Me moria mg oral 5-11 PO, l tablet 15:21: Bedtime, # Eugenia nn 00 90 tab, 1 Refill(s), Pharmacy: [facility] #[id number], 175.26, cm, 01/16/20 10:50:00 CELL ATTENDANT HELPER, Height, 66.818, kg, 07/16/20 10:00:00 CDT, Weight donepezil 5 2020-0 Yes = 1 tab, Me moria mg oral 5-11 PO, l tablet 15:21: Bedtime, # Eugenia nn 00 90 tab, 1 Refill(s), Pharmacy: [facility] #[id number], 175.26, cm, 01/16/20 10:50:00 CELL ATTENDANT HELPER, Height, 66.818, kg, 07/16/20 10:00:00 CDT, Weight predniSONE 2019-0 Yes 20mg Take 20 mg U nivers (DELTASONE) 7-15 by mouth ity of 20 mg 17:52: daily. [place] tablet 45 Medical Branch levofloxaci 2020-0 Yes 500mg Take 500 U nivers n 7-15 mg by ity of (LEVAQUIN) 17:52: mouth [place] 750 mg 45 every 24 Medical tablet (twenty-fo Branch ur) hours. METOPROLOL 2020-0 Yes 25mg Take 25 mg U nivers TARTRATE 7-15 by mouth 2 ity o f ORAL 17:52: (two) [place] 45 times Medical daily. Branch Omeprazole 2020-0 Yes Take by [facility] ers Magnesium 7-15 mouth. ity of 20 mg 17:52: [place] capsule 45 Medical Branch ipratropium 2020-0 Yes .5mg Inhale 0.5 Univers (ATROVENT) 7-15 mg. ity of 0.02 % 17:52: [place] nebulizer 45 Medical solution Branch albuterol 2020-0 Yes 2.5mg Inhale 2.5 U nivers (PROVENTIL) 7-15 mg every 4 it y of 2.5 mg /3 17:52: (four) [place] mL (0.083 45 hours as Medica l %) needed for Branch nebulizer Wheezing solution or Shortness of Breath. budesonide- 2020-0 Yes 2{puff} Inhale 2 Univers formoterol 7-15 Puffs 2 ity of (SYMBICORT) 17:52: (two) [place] 160-4.5 45 times Medical mcg/actuati daily. Branch on inhaler clopidogrel 2020-0 Yes 75mg Take 75 mg Univers (PLAVIX) 75 7-15 by mouth ity of mg tablet 17:52: daily. [place] [address] Medical Branch predniSONE 2020-0 Yes 20mg Take 20 mg U nivers (DELTASONE) 7-15 by mouth ity of 20 mg 17:52: daily. [place] tablet 45 Medical Branch levofloxaci 2020-0 Yes 500mg Take 500 U nivers n 7-15 mg by ity of (LEVAQUIN) 17:52: mouth [place] 750 mg 45 every 24 Medical tablet (twenty-fo Branch ur) hours. METOPROLOL 2020-0 Yes 25mg Take 25 mg U nivers TARTRATE 7-15 by mouth 2 ity o f ORAL 17:52: (two) [place] 45 times Medical daily. Branch Omeprazole 2019-0 Yes Take by [facility] ers Magnesium 7-15 mouth. ity of 20 mg 17:52: [place] capsule Medical Branch ipratropium 2020-0 Yes .5mg Inhale 0.5 Univers (ATROVENT) 7-15 mg. ity of 0.02 % 17:52: [place] nebulizer 45 Medical solution Branch albuterol 2019-0 Yes 2.5mg Inhale 2.5 U nivers (PROVENTIL) 7-15 mg every 4 it y of 2.5 mg /3 17:52: (four) [place] mL (0.083 45 hours as Medica l %) needed for Branch nebulizer Wheezing solution or Shortness of Breath. budesonide- 2020-0 Yes 2{puff} Inhale 2 Univers formoterol 7-15 Puffs 2 ity of (SYMBICORT) 17:52: (two) [place] 160-4.5 45 times Medical mcg/actuati daily. Branch on inhaler clopidogrel 2020-0 Yes 75mg Take 75 mg Univers (PLAVIX) 75 7-15 by mouth ity of mg tablet 17:52: daily. [address] water for 2020-0 Yes PRN, Univers irrigation 7-15 Starting ity o f irrigation 17:05: Wed [place] solution 00 7/15/20 at Medic al 1205, Branch Until Discontinu ed, Routine, Intra-op sodium 2020-0 Yes PRN, Univers chloride 7-15 Starting ity of (NS) 17:05: [facility] injection 09/20/19 at [facility] 1205, Branch Until Discontinu ed, Routine, Intra-op neomycin-po 2020-0 Yes PRN, Univer s lymyxin-dex 7-15 Starting ity of amethasone 17:04: Wed [place] (MAXITROL) 00 09/20/19 at Med ical 3.5 1204, Branch mg/g-10,000 Until unit/g-0.1 Discontinu % ed, ophthalmic Routine, ointment Intra-op methylene 2020-0 Yes PRN, Univers blue 1 % 7-15 Starting ity of (10 mg/mL) 17:03: [facility] injection 09/20/19 at [facility] 1203, Branch Until Discontinu ed, Routine, Intra-op Hyaluronida 2020-0 Yes PRN, Univer s se, Human 7-15 Starting ity of Recomb. 17:03: Wed [place] (HYLENEX) 09/20/19 at [facility] injection 1203, Branch Until Discontinu ed, Routine, Intra-op gentamicin 2020-0 Yes PRN, Univers injection 7-15 Starting ity of 17:03: [facility] 09/20/19 at [facility] 1203, Branch Until Discontinu ed, LORAINE, Intra-op eye block 2020-0 Yes PRN, Univers syringe 11 7-15 Starting ity o f mL 17:02: [facility] 09/20/19 at [facility] 1202, Branch Until Discontinu ed, Intra-op EPINEPHrine 2020-0 Yes PRN, Univer s 1:1,000 (1 7-15 Starting ity o f mg/mL) 17:02: Wed [place] (ADRENALIN) 09/20/19 at Ut dical injection 1202, Branch Until Discontinu ed, Routine, Intra-op DUOVISC 2020-0 Yes PRN, Univers (DUOVISC 7-15 Starting ity of VISCO 17:02: [facility] ELASTIC) 3 09/20/19 at [facility] ical %-4 %(0.5 1202, Branch mL) 1 % Until (0.55 mL) Discontinu intraocular ed, injection Routine, Intra-op dexamethaso 2020-0 Yes PRN, Univer s ne 09-19 Starting ity of (DECADRON 17:02: Wed [place] PHOSPHATE) 00 09/20/19 at [facility] ical injection 1202, Branch Until Discontinu ed, Routine, Intra-op ceFAZolin 2020-0 Yes PRN, Univers (ANCEF) 09-19 Starting ity of injection 17:01: Wed [place] 00 09/20/19 at Medical 1201, Branch Until Discontinu ed, LORAINE, Intra-op carbachoL 2020-0 Yes PRN, Univers (MIOSTAT) 09-19 Starting ity of 0.01 % 17:01: Wed [place] intraocular 00 09/20/19 at Ut dical injection 1201, Branch Until Discontinu ed, Routine, Intra-op balanced 2020-0 Yes PRN, Univers salt irrig 09-19 Starting ity o f soln comb1 17:00: Wed [place] (BSS PLUS) 00 09/20/19 at [facility] ica ophthalmic 1200, Branch solution Until 500 mL bag Discontinu ed, Routine, Intra-op propofol IV 2020-0 2020- No ONCE INTRA Univers infusion 09-19 PROCEDURE, ity of 16:50: 17:22 Starting [place] 00 :11 [facility] Medical 09/20/19 at Branch 1150, Until Wed09/20/19 at 1222, Routine, Intra-op remifentani 2020-0 2020- No ONCE INTRA Univers l (ULTIVA) 09-19 PROCEDURE, it y of injection 16:46: 17:22 Starting [place] as 00 :11 [facility] Medical 09/20/19 at Branch 1146, Until Wed09/20/19 at 1222, Routine, Intra-op lactated 2020-0 2020- No CONTINUOUS Un sarahy ringers IV 09-19 PRN, ity of infusion 16:44: 17:22 Starting [place] 00 :11 [facility] Medical 09/20/19 at Branch 1144, Until Wed09/20/19 at 1222, Routine, Intra-op mydriatic 2020-0 2020- No .5mL 0.5 mL, Univ ers #5 09-19 Left Eye, ity of ophthalmic 14:30: 14:26 [...] 7-15 mg. ity of 0.02 % 12:52: [place] nebulizer 45 Medical solution Branch budesonide- 2020-0 [...] 7-15 mg. ity of 0.02 % 12:52: [place] nebulizer 45 Medical solution Branch budesonide- 2020-0 [...] 7-15 mg. ity of 0.02 % 12:52: [place] nebulizer 45 Medical solution Branch budesonide- 2020-0 [...] daily. Branch Omeprazole 2020-0 Yes Take by [facility] ers Magnesium 7-13 mouth. ity of 20 mg 17:38: [place] capsule 42 Medical Branch ipratropium 2020-0 Yes .5mg Inhale 0.5 Univers (ATROVENT) 7-13 mg. ity of 0.02 % 17:38: [place] nebulizer 42 Medical solution Branch albuterol 2020-0 [...] mouth ity of mg tablet 17:38: daily. [place] [address] Medical Branch predniSONE 2020-0 Yes 20mg Take 20 mg U nivers (DELTASONE) 7-13 by mouth ity of 20 mg 17:38: daily. [place] [address] Medical Branch levofloxaci 2020-0 Yes 500mg Take 500 U nivers n 7-13 mg by ity of (LEVAQUIN) 17:38: mouth [place] 750 mg 42 every 24 Medical tablet (twenty-fo Branch ur) hours. METOPROLOL 2020-0 Yes 25mg Take 25 mg U nivers TARTRATE 7-13 by mouth 2 ity o f ORAL 17:38: (two) [place] 42 times Medical daily. Branch Omeprazole 2020-0 Yes Take by [facility] ers Magnesium 7-13 mouth. ity of 20 mg 17:38: [place] [address] Medical Branch ipratropium 2020-0 Yes .5mg Inhale 0.5 Univers (ATROVENT) 7-13 mg. ity of 0.02 % 17:38: [place] nebulizer Medical solution Branch albuterol 2020-0 Yes [...] mouth ity of mg tablet 17:38: daily. [place] 42 Medical Branch predniSONE 2020-0 Yes 20mg Take 20 mg U nivers (DELTASONE) 7-13 by mouth ity of 20 mg 17:38: daily. [place] tablet Medical Branch predniSONE 2020-0 Yes 20mg Take 20 mg U nivers (DELTASONE) 7- by mouth ity of 20 mg 15:58: daily. [place] tablet Medical Branch levofloxaci 2020-0 Yes 500mg Take 500 U nivers n 7- mg by ity of (LEVAQUIN) 15:58: mouth [place] 750 mg 06 every 24 Medical tablet (twenty-fo Branch ur) hours. METOPROLOL 2020-0 Yes 25mg Take 25 mg U nivers TARTRATE 09-05 by mouth 2 ity o f ORAL 15:58: (two) [place] 06 times Medical daily. Branch Omeprazole 2020-0 Yes Take by [facility] ers Magnesium 7- mouth. ity of 20 mg 15:58: [place] capsule Medical Branch ipratropium 2019-0 Yes .5mg Inhale 0.5 Univers (ATROVENT) 7- mg. ity of 0.02 % 15:58: [place] nebulizer Medical solution Branch albuterol 2019-0 Yes 2.5mg Inhale 2.5 U nivers (PROVENTIL) 7- mg every 4 it y of 2.5 mg /3 15:58: (four) [place] mL (0.083 06 hours as Medica l %) needed for Branch nebulizer Wheezing solution or Shortness of Breath. budesonide- 2020-0 Yes 2{puff} Inhale 2 [facility] formoterol 09-05 Puffs 2 ity of (SYMBICORT) 15:58: (two) [place] 160-4.5 06 times Medical mcg/actuati daily. Branch on inhaler clopidogrel 2019-0 Yes 75mg Take 75 mg Univers (PLAVIX) 75 7- by mouth ity of mg tablet 15:58: daily. [address] Branch lactated 2020-0 Yes 1000mL at 75 Univer s ringers IV 7-01 mL/hr, ity of infusion 15:45: 1,000 [place] 1[place] 00 IV Medical Infusion, Branch CONTINUOUS , Starting Wed09/06/19 at 1045, Until Discontinu ed, Routine, PACU water for 2019-0 Yes PRN, Univers irrigation 7- Starting ity o f irrigation 14:55: Wed09/06/19 [...] ne 09-05 Starting ity of (DECADRON 14:53: [place] PHOSPHATE[place] 00 at 0953, Medic [...] 00 at 0950, Medic al ophthalmic Until [place] solution Discontinu 500 mL bag ed, Routine, Intra-op trypan blue 2020-0 Yes PRN, Univer s (VISION 09-05 Starting ity of BLUE) 0.06 14:50: 09/06/19 [place] % syringe 00 at 0950, Medica l Until [place] Discontinu ed, Routine, Intra-op eye block 2020-0 Yes PRN, Univers syringe 11 09-05 Starting ity o f mL 14:34: 09/06/19 [place] 00 at 0934, Medical Until Branch Discontinu ed, Intra-op mydriatic 2020-0 2020- No .5mL 0.5 mL, Univ ers #5 09-05 Right Eye, ity of ophthalmic 12:30: 12:47 ONCE, 1 [place] as solution 00 :00 dose, Wed Medica l 0.5 mL 09/06/19 at [place] syringe 0730, Routine lactated 2020-0 2020- No 1000mL at 20 Unive rs ringers IV 09-05 mL/hr, ity of infusion 12:30: 12:39 1,000 mL, [place] as 1,000 mL 00 :00 IV Medical Infusion, [place] ONCE, 1 dose, 09/06/19 at 0730, Routine, [facility]SU Pre-op predniSONE 2020-0 Yes 20mg Take 20 mg U nivers (DELTASONE) 6-29 by mouth ity of 20 mg 16:52: daily. [place] tablet [address] [place] [address] predniSONE 2020-0 Yes 20mg Take 20 mg U nivers (DELTASONE) 6-29 by mouth ity of 20 mg 16:52: daily. [place] tablet 26 [facility] levofloxaci 2020-0 Yes 500mg Take 500 U nivers n 6-29 mg by ity of (LEVAQUIN) 16:52: mouth [place] 750 mg 06 every 24 Medical tablet (twenty-fo Branch ur) hours. METOPROLOL 2020-0 Yes 25mg Take 25 mg U nivers TARTRATE 6-29 by mouth 2 ity o f ORAL 16:52: (two) [place] 06 times Medical daily. Branch Omeprazole 2020-0 Yes Take by [facility] ers Magnesium 6-29 mouth. ity of [...] mouth ity of mg tablet 16:52: daily. [place] 06 Medical Branch levofloxaci 2020-0 Yes 500mg Take 500 U nivers n 6-29 mg by ity of (LEVAQUIN) 16:52: mouth [place] 750 mg 06 every 24 Medical tablet (twenty-fo Branch ur) hours. METOPROLOL 2020-0 Yes 25mg Take 25 mg U nivers TARTRATE 6-29 by mouth 2 ity o f ORAL 16:52: (two) [place] 06 times Medical daily. Branch Omeprazole 2020-0 Yes Take by [facility] ers Magnesium 6-29 mouth. ity of [...] Puffs 2 ity of (SYMBICORT) 16:52: (two) [place] 160-4.5 06 times Medical mcg/actuati daily. Branch on inhaler clopidogrel 2020-0 Yes 75mg Take 75 mg Univers (PLAVIX) 75 6-29 by mouth ity of mg tablet 16:52: daily. [place] 06 [facility] Branch topiramate 2020-0 Yes 50 mg = 2 Me moria 25 MG Oral 4-14 tab, PO, l Tablet 16:16: BID, # 360 Eugenia nn [Topamax] 00 tab, 3 Refill(s), Pharmacy: [facility] #[id number] topiramate 2020-0 Yes 50 mg = 2 Me moria 25 MG Oral 4-14 tab, PO, l Tablet 16:16: BID, # 360 Eugenia nn [Topamax] 00 tab, 3 Refill(s), Pharmacy: [facility] #[id number] topiramate 2020-0 Yes 50 mg = 2 Me moria 25 MG Oral 4-14 tab, PO, l Tablet 16:16: BID, # 360 Eugenia nn [Topamax] 00 tab, 3 Refill(s), Pharmacy: [facility] #[id number] topiramate 2020-0 Yes 50 mg = 2 Me moria 25 MG Oral 4-14 tab, PO, l Tablet 16:16: BID, # 360 Eugenia nn [Topamax] 00 tab, 3 Refill(s), Pharmacy: [facility] #[id number] topiramate 2020-0 Yes 50 mg = 2 Me moria 25 MG Oral 4-14 tab, PO, l Tablet 16:16: BID, # 360 Eugenia nn [Topamax] 00 tab, 3 Refill(s), Pharmacy: [facility] #[id number] topiramate 2020-0 No 25 mg = 1 Me moria 25 MG Oral 2-28 tab, PO, l Tablet 15:24: BID, # 180 Eugenia nn [Topamax] 00 tab, 3 Refill(s), Pharmacy: [facility] #[id number] topiramate 2020-0 No 25 mg = 1 Me moria 25 MG Oral 2-28 tab, PO, l Tablet 15:24: BID, # 180 Eugenia nn [Topamax] 00 tab, 3 Refill(s), Pharmacy: [facility] #[id number] topiramate 2020-0 No 25 mg = 1 Me moria 25 MG Oral 2-28 tab, PO, l Tablet 15:24: BID, # 180 Eugenia nn [Topamax] 00 tab, 3 Refill(s), Pharmacy: [facility] #[id number] topiramate 2020-0 No 25 mg = 1 Me moria 25 MG Oral 2-28 tab, PO, l Tablet 15:24: BID, # 180 Eugenia nn [Topamax] 00 tab, 3 Refill(s), Pharmacy: [facility] #[id number] topiramate 2020-0 No 25 mg = 1 Me moria 25 MG Oral 2-28 tab, PO, l Tablet 15:24: BID, # 180 Eugenia nn [Topamax] 00 tab, 3 Refill(s), Pharmacy: [facility] #[id number] Donepezil 2020-0 Yes 5 mg = 1 [place] to hydrochlori 2-13 tab, PO, l de 5 MG 18:26: Bedtime, # Herm radha Oral Tablet 00 30 tab, 3 [Aricept] Refill(s), Pharmacy: [facility] #[id number] topiramate 2020-0 Yes 25 mg = 1 Me moria 25 MG Oral 2-13 tab, PO, l Tablet 18:26: BID, # 60 Eric n [Topamax] 00 tab, 3 Refill(s), Pharmacy: [facility] #[id number] Donepezil 2020-0 Yes 5 mg = 1 [place] to hydrochlori 2-13 tab, PO, l de 5 MG 18:26: Bedtime, # Herm radha Oral Tablet 00 30 tab, 3 [Aricept] Refill(s), Pharmacy: [facility] #[id number] topiramate 2020-0 Yes 25 mg = 1 Me moria 25 MG Oral 2-13 tab, PO, l Tablet 18:26: BID, # 60 Eric n [Topamax] 00 tab, 3 Refill(s), Pharmacy: [facility] #[id number] Donepezil 2020-0 Yes 5 mg = 1 [place] to hydrochlori 2-13 tab, PO, l de 5 MG 18:26: Bedtime, # Herm radha Oral Tablet 00 30 tab, 3 [Aricept] Refill(s), Pharmacy: [facility] #[id number] topiramate 2020-0 Yes 25 mg = 1 Me moria 25 MG Oral 2-13 tab, PO, l Tablet 18:26: BID, # 60 Eric n [Topamax] 00 tab, 3 Refill(s), [id number] Donepezil 2020-0 Yes 5 mg = 1 [place] to hydrochlori 2-13 tab, PO, l de 5 MG 18:26: Bedtime, # Herm radha Oral Tablet 00 30 tab, 3 [Aricept] Refill(s), [id number] topiramate 2020-0 Yes 25 mg = 1 Me moria 25 MG Oral 2-13 tab, PO, l Tablet 18:26: BID, # 60 Eric n [Topamax] 00 tab, 3 Refill(s), [id number] Donepezil 2020-0 Yes 5 mg = 1 [place] to hydrochlori 2-13 tab, PO, l de 5 MG 18:26: Bedtime, # Herm radha Oral Tablet 00 30 tab, 3 [Aricept] Refill(s), [id number] topiramate 2020-0 Yes 25 mg = 1 Me moria 25 MG Oral 2-13 tab, PO, l Tablet 18:26: BID, # 60 Eric n [Topamax] 00 tab, 3 Refill(s), [id number] tamsulosin 2020-0 Yes 0.4 mg, [place] to 1-16 PO, Daily, l 16:30: 0 Refill(s) gabapentin 2020-0 Yes 300 mg, [place] to 1-16 PO, Daily, l 16:30: 0 [place] 00 Refill(s) Sertraline 2020-0 Yes 50 mg, PO, M emoria 1-16 Daily, 0 l 16:30: Refill(s) Losartan 2020-0 No PO, Daily, Mem oria 1-16 0 l 16:30: Refill(s) Hydrochloro 2020-0 Yes 1 tab, PO, Memoria thiazide 25 1-16 Daily, 0 l MG / 16:30: Refill(s) Potassium 100 MG Oral Tablet tamsulosin 2019-0 Yes 0.4 mg, [place] to 1-16 PO, Daily, l 16:30: 0 Refill(s) gabapentin 2020-0 Yes 300 mg, [place] to 1-16 PO, Daily, l 16:30: 0 Refill(s) Sertraline 2020-0 Yes 50 mg, PO, M emoria 1-16 Daily, 0 l 16:30: Refill(s) Losartan 2020-0 No PO, Daily, Mem oria 1-16 0 l 16:30: Refill(s) Hydrochloro 2020-0 Yes 1 tab, PO, Memoria thiazide 25 1-16 Daily, 0 l MG / 16:30: Refill(s) Losartan Potassium 100 MG Oral Tablet tamsulosin 2020-0 Yes 0.4 mg, [place] to 1-16 PO, Daily, l 16:30: 0 Refill(s) gabapentin 2020-0 Yes 300 mg, [place] to 1-16 PO, Daily, l 16:30: 0 Refill(s) Sertraline 2020-0 Yes 50 mg, PO, M emoria 1-16 Daily, 0 l 16:30: Refill(s) Losartan 2020-0 No PO, Daily, Mem oria 1-16 0 l 16:30: Refill(s) Hydrochloro 2020-0 Yes 1 tab, PO, Memoria thiazide 25 1-16 Daily, 0 l MG / 16:30: Refill(s) Potassium 100 MG Oral Tablet tamsulosin 2020-0 Yes 0.4 mg, [place] to 1-16 PO, Daily, l 16:30: 0 Refill(s) gabapentin 2020-0 Yes 300 mg, [place] to 1-16 PO, Daily, l 16:30: 0 Refill(s) Sertraline 2020-0 Yes 50 mg, PO, M emoria 1-16 Daily, 0 l 16:30: Refill(s) Losartan 2020-0 No PO, Daily, Mem oria 1-16 0 l 16:30: Refill(s) Hydrochloro 2020-0 Yes 1 tab, PO, Memoria thiazide 25 1-16 Daily, 0 l MG / 16:30: Refill(s) Tanvir Losartan 00 Potassium 100 MG Oral Tablet tamsulosin Yes 0.4 mg, [place] to 1-16 PO, Daily, l 16:30: 0 Refill(s) gabapentin 2019-0 Yes 300 mg, [place] to 1-16 PO, Daily, l 16:30: 0 Refill(s) Sertraline Yes 50 mg, PO, M emoria 1-16 Daily, 0 l 16:30: Refill(s) Losartan 2019-0 No PO, Daily, Mem oria 1-16 0 l 16:30: Refill(s) Hydrochloro 2019- Yes 1 tab, PO, Memoria thiazide 25 1-16 Daily, 0 l MG / 16:30: Refill(s) Losartan Potassium 100 MG Oral Tablet albuterol Yes 2.5mg Q.25D Take 2.[address] (PROVENTIL) 2-03 mg by [facility] 2.5 mg/0.5 05:10: nebulizati edical mL Nebu 39 on 4 Center nebulizer (four) solution times daily. ipratropium Yes 500ug Take [address] (ATROVENT) 2-03 mcg by [place] 0.02 % 05:10: nebulizati Medic al nebulizer 39 on every 6 Cent er solution (six) hours. metoprolol Yes 25mg Q.5D Take [address] (LOPRESSOR) 2-03 by mouth 2 Manuela kes 25 MG 05:10: (two) Medical tablet 39 times Center daily. omeprazole Yes 20mg QD Take [address] (PRILOSEC) 2-03 by mouth [facility] 20 MG 05:10: daily. Medical capsule 39 [facility] budesonide- 2019-0 Yes 2{puff} Q.5D Inhale [address] [facility] formoterol 2-03 puffs by Cristiano (SYMBICORT) 05:10: mouth via M edical 160-4.5 [...] Medical tablet 39 times Center daily. omeprazole Yes 20mg QD Take [address] (PRILOSEC) 2-03 by mouth [facility] 20 MG 05:10: daily. Medical capsule 39 Center budesonide- Yes 2{puff} Q.5D Inhale [address] [facility] formoterol 2-03 puffs by Cristiano (SYMBICORT) 05:10: mouth via M edical 160-4.5 [...] Notes: Memoria 0-25 porcine l 05:00: heparin [place] heparin 2017-03 No Notes: Memoria 0-25 porcine l 05:00: heparin Tanvir heparin 2017-03 No Notes: Memoria 0-25 porcine l 05:00: heparin Tanvir heparin 2017-03 No Notes: Memoria 0-25 porcine l 05:00: heparin [place] heparin 2017-03 No Notes: Memoria 0-25 porcine l 05:00: heparin [place] heparin 2017-03 No Notes: Memoria 0-25 porcine l 05:00: heparin Tanvir heparin 2017-03 No Notes: Memoria 0-25 porcine l 05:00: heparin Tanvir heparin 2017-03 No Notes: Memoria 0-25 porcine l 05:00: heparin Tanvir Calcium 2017-03 No 1,000 mL, Memor ia [...] Chloride 0-24 1,000 l 0.0014 21:42: ml/hr, [place] MEQ/ML / 00 Infuse Potassium Over: 1 [...] Chloride 0-24 1,000 l 0.0014 21:42: ml/hr, [place] MEQ/ML / 00 Infuse Potassium Over: 1 Chloride hr, Route: 0.004 IV, 1,000, MEQ/ML / Drug form: Sodium INJ, ONCE, Chloride Priority: 0.103 STAT, MEQ/ML / Dosing Sodium Weight Lactate 69.659 kg, 0.028 Start MEQ/ML date: Injectable 12/29/17 Solution 16:42:00 CDT, Stop date: 12/29/17 16:42:00 CDT Calcium 2017-03 No 1,000 mL, Memor ia Chloride 0-24 1,000 l 0.0014 21:42: ml/hr, [place] MEQ/ML / 00 Infuse Potassium Over: 1 [...] thiazide 0-24 (Same as: l 14:00: Hydrodiuri [place] 00 l) With food. Plavix 2017-03 No Notes: Memoria 0-24 (Same As: l 14:00: Plavix) Tanvir Buspirone 2017-03 No Notes: Memori a 0-24 (Same As: l 14:00: BuSpar) [place] Aspirin 2017-03 No Notes: Do Memor ia 0-24 not crush l 14:00: or chew. Tanvir 00 (Same As: Ecotrin) atorvastati 2017-03 No Notes: [place] to n 0-24 (Same as: l 14:00: Lipitor) Tanvir 00 metoprolol 2017-03 No Notes: Memor ia tartrate 0-24 (Same as: l 14:00: Lopressor) [place] 00 Docusate 2017-03 No Notes: Memoria 0-24 (Same as: l 14:00: Colace) [place] 00 (Do Not Crush) Eliquis 2017-03 No [...] Memoria 0-24 (Same As: l 14:00: Plavix) [place] 00 Buspirone 2017-03 No Notes: Memori a 0-24 (Same As: l 14:00: BuSpar) [place] Aspirin 2017-03 No Notes: Do Memor ia 0-24 not crush l 14:00: or chew. Tanvir 00 (Same As: Ecotrin) atorvastati 2017-03 No Notes: [place] to n 0-24 (Same as: l 14:00: Lipitor) [place] 00 metoprolol 2017-03 No Notes: Memor ia tartrate 0-24 (Same as: l 14:00: Lopressor) Tanvir Docusate 2017-03 No Notes: Memoria 0-24 (Same as: l 14:00: Colace) Tanvir 00 (Do Not Crush) Eliquis 2017-03 No Notes: Memoria 0-24 Same as: l 14:00: Eliquis [place] pantoprazol 2017-03 No Notes: [place] to e 0-24 Tablet l 14:00: should not Tanvir 00 be chewed or crushed. (Same as: Protonix) Losartan 2017-03 No Notes: Memoria 0-24 (Same as: l 14:00: Cozaar) [place] Hydrochloro 2017-03 No Notes: [place] to thiazide 0-24 (Same as: l 14:00: Hydrodiuri Tanvir 00 l) With food. Plavix 2017-03 No Notes: Memoria 0-24 (Same As: l 14:00: Plavix) [place] 00 Buspirone 2017-03 No Notes: Memori a 0-24 (Same As: l 14:00: BuSpar) [place] 00 Aspirin 2017-03 No Notes: Do Memor ia 0-24 not crush l 14:00: or chew. [place] 00 (Same As: Ecotrin) atorvastati 2017-03 No Notes: [place] to n 0-24 (Same as: l 14:00: Lipitor) Tanvir 00 metoprolol 2017-03 No Notes: Memor ia tartrate 0-24 (Same as: l 14:00: Lopressor) Tanvir 00 Docusate 2017-03 No Notes: Memoria 0-24 (Same as: l 14:00: Colace) Tanvir (Do Not Crush) Eliquis 2017-03 No Notes: Memoria 0-24 Same as: l 14:00: Eliquis [place] pantoprazol 2017-03 No Notes: [place] to e 0-24 Tablet l 14:00: should not Tanvir 00 be chewed or crushed. (Same as: Protonix) Losartan 2017-03 No Notes: Memoria 0-24 (Same as: l 14:00: Cozaar) [place] Hydrochloro 2017-03 No Notes: [place] to thiazide 0-24 (Same as: l 14:00: Hydrodiuri Tanvir 00 l) With food. Plavix 2017-03 No Notes: Memoria 0-24 (Same As: l 14:00: Plavix) [place] Buspirone 2017-03 No Notes: Memori a 0-24 (Same As: l 14:00: BuSpar) [place] 00 Aspirin 2017-03 No Notes: Do Memor [...] 0-24 not crush l 14:00: or chew. [place] 00 (Same As: Ecotrin) atorvastati 2017-03 No Notes: [place] to n 0-24 (Same as: l 14:00: Lipitor) metoprolol 2017-03 No Notes: Memor ia tartrate 0-24 (Same as: l 14:00: Lopressor) [place] 00 Docusate 2017-03 No Notes: Memoria 0-24 [...] Memoria 0-24 (Same as: l 14:00: Cozaar) [place] 00 Hydrochloro 2017-03 No Notes: [place] to thiazide 0-24 (Same as: l 14:00: Hydrodiuri Tanvir 00 l) With food. Plavix 2017-03 No Notes: Memoria 0-24 (Same As: l 14:00: Plavix) Buspirone 2017-03 No Notes: Memori a 0-24 (Same As: l 14:00: BuSpar) [place] Aspirin 2017-03 No Notes: Do Memor ia [...] 25 0-24 Daily l MG / 02:24: [place] Losartan 00 Potassium 100 MG Oral Tablet Hydrochloro 2017-03 No 1 tab, PO, Memoria thiazide 25 0-24 Daily l MG / 02:24: [place] Losartan 00 Potassium 100 MG Oral Tablet Hydrochloro 2017-03 No 1 tab, PO, Memoria thiazide 25 0-24 Daily l MG / 02:24: [place] Losartan 00 Potassium 100 MG Oral Tablet Hydrochloro 2017-03 No 1 tab, PO, Memoria thiazide 25 0-24 Daily l MG / 02:24: [place] Losartan 00 Potassium 100 MG Oral Tablet Hydrochloro 2017-03 No 1 tab, PO, Memoria thiazide 25 0-24 Daily l MG / 02:24: Tanvir Losartan 00 Potassium 100 MG Oral Tablet Hydrochloro 2017-03 No 1 tab, PO, Memoria thiazide 25 0-24 Daily l MG / 02:24: [place] Losartan 00 Potassium 100 MG Oral Tablet atorvastati 2017-03 Yes 80 mg = 1 M emoria n 80 mg 0-24 tab, PO, l oral tablet 02:20: Bedtime [facility] atorvastati 2017-03 Yes 80 mg = 1 M emoria n 80 mg 0-24 tab, PO, l oral tablet 02:20: Bedtime Her [facility] atorvastati 2017-03 Yes 80 mg = 1 M emoria n 80 mg 0-24 tab, PO, l oral tablet 02:20: Bedtime Her [facility] atorvastati 2017-03 Yes 80 mg = 1 M emoria n 80 mg 0-24 tab, PO, l oral tablet 02:20: Bedtime Her [facility] atorvastati 2017-03 Yes 80 mg = 1 M emoria n 80 mg 0-24 tab, PO, l oral tablet 02:20: Bedtime Her [facility] atorvastati 2017-03 Yes 80 mg = 1 M emoria n 80 mg 0-24 tab, PO, l oral tablet 02:20: Bedtime Her [facility] atorvastati 2017-03 Yes 80 mg = 1 M emoria n 80 mg 0-24 tab, PO, l oral tablet 02:20: Bedtime Her [facility] atorvastati 2017-03 Yes 80 mg = 1 M emoria n 80 mg 0-24 tab, PO, l oral tablet 02:20: Bedtime Her clopidogrel 2017-03 Yes 75 mg = 1 M emoria 75 MG Oral 0-23 tab, PO, l Tablet 23:17: Daily, 0 Tanvir [Plavix] 00 Refill(s) pantoprazol 2017-03 Yes 40 mg = 1 M emoria e 40 mg 0-23 tab, PO, l oral 23:17: Daily, 0 [place] enteric 00 Refill(s) coated tablet Aspirin 2017-03 Yes 81 mg, PO, [place] to 0-23 Daily, 0 l 23:17: Refill(s) [place] 00 busPIRone 2017-03 Yes 15 mg = 1 Mem oria 15 mg oral 0-23 tab, PO, l tablet 23:17: BID, 0 [place] 00 Refill(s) atorvastati 2017-03 No 40 mg = 1 M emoria n 40 mg 0-23 tab, PO, l oral tablet 23:17: Daily, 0 He r[place] 00 Refill(s) Hydrochloro 2017-03 No 25 mg, PO, Memoria thiazide 0-23 Daily, 0 l 23:17: Refill(s) [place] losartan 2017-03 No 100 mg = 1 Mem oria 100 mg oral 0-23 tab, PO, l tablet 23:17: Daily, 0 [place] 00 Refill(s) clopidogrel 2017-03 Yes 75 mg = 1 M emoria 75 MG Oral 0-23 tab, PO, l Tablet 23:17: Daily, 0 [place] [Plavix] 00 Refill(s) pantoprazol 2017-03 Yes 40 [...] tab, PO, l Tablet 23:17: Daily, 0 [place] [Plavix] 00 Refill(s) pantoprazol 2017-03 Yes 40 mg = 1 M emoria e 40 mg 0-23 tab, PO, l oral 23:17: Daily, 0 Tanvir enteric 00 Refill(s) coated tablet Aspirin 2017-03 Yes 81 mg, PO, [place] to 0-23 Daily, 0 l 23:17: Refill(s) busPIRone 2017-03 Yes 15 mg = 1 Mem oria 15 mg oral 0-23 tab, PO, l tablet 23:17: BID, 0 [place] 00 Refill(s) atorvastati 2017-03 No 40 mg = 1 M emoria n 40 mg 0-23 tab, PO, l oral tablet 23:17: Daily, 0 He rm 00 Refill(s) Hydrochloro 2017-03 No 25 mg, [...] tab, PO, l tablet 23:17: BID, 0 [place] 00 Refill(s) atorvastati 2017-03 No 40 mg = 1 M emoria n 40 mg 0-23 tab, PO, l oral tablet 23:17: Daily, 0 He rmann 00 Refill(s) Hydrochloro 2017-03 No 25 mg, PO, Memoria thiazide 0-23 Daily, 0 l 23:17: Refill(s) Tanvir losartan 2017-03 No 100 mg = 1 [...] 0-23 Daily, 0 l 23:17: Refill(s) Tanvir busPIRone 2017-03 Yes 15 mg = 1 Mem oria 15 mg oral 0-23 tab, PO, l tablet 23:17: BID, 0 [place] 00 Refill(s) atorvastati 2017-03 No 40 mg = 1 M emoria n 40 mg 0-23 tab, PO, l oral tablet 23:17: Daily, 0 He r[place] 00 Refill(s) Hydrochloro 2017-03 No 25 mg, PO, Memoria thiazide 0-23 Daily, 0 l 23:17: Refill(s) Tanvir losartan 2017-03 No 100 mg = 1 Mem oria 100 mg oral 0-23 tab, PO, l tablet 23:17: Daily, 0 [place] 00 Refill(s) clopidogrel 2017-03 Yes 75 mg [...] 0-23 Daily, 0 l 23:17: Refill(s) Tanvir busPIRone 2017-03 Yes 15 mg = 1 Mem oria 15 mg oral 0-23 tab, PO, l tablet 23:17: BID, 0 Tanvir 00 Refill(s) atorvastati 2017-03 No 40 mg = 1 M emoria n 40 mg 0-23 tab, PO, l oral tablet 23:17: Daily, 0 He rmann 00 Refill(s) Hydrochloro 2017-03 No 25 mg, PO, Memoria thiazide 0-23 Daily, 0 l 23:17: Refill(s) Tanvir losartan 2017-03 No 100 mg = 1 Mem oria 100 mg oral 0-23 tab, PO, l tablet 23:17: Daily, 0 Tanvir 00 Refill(s) clopidogrel 2017-03 Yes 75 mg = 1 M emoria 75 MG Oral 0-23 tab, PO, l Tablet 23:17: Daily, 0 [place] [Plavix] 00 Refill(s) pantoprazol 2017-03 Yes 40 mg = 1 M emoria e 40 mg 0-23 tab, PO, l oral 23:17: Daily, 0 [place] enteric 00 Refill(s) coated tablet Aspirin 2017-03 Yes 81 mg, PO, [place] to 0-23 Daily, 0 l 23:17: Refill(s) Tanvir 00 busPIRone 2017-03 Yes 15 mg = 1 Mem oria 15 mg oral 0-23 tab, PO, l tablet 23:17: BID, 0 [place] 00 Refill(s) atorvastati 2017-03 No 40 mg = 1 M emoria n 40 mg 0-23 tab, PO, l oral tablet 23:17: Daily, 0 He rmann 00 Refill(s) Hydrochloro 2017-03 No 25 mg, PO, Memoria thiazide 0-23 Daily, 0 l 23:17: Refill(s) Tanvir losartan 2017-03 No 100 mg = 1 Mem oria 100 mg oral 0-23 tab, PO, l tablet 23:17: Daily, 0 Tanvir 00 Refill(s) Aspirin 2017-03 Yes 81 mg, PO, [place] to 0-23 Daily, 0 l 23:17: Refill(s) [place] 00 busPIRone 2017-03 Yes 15 mg = 1 Mem oria 15 mg oral 0-23 tab, PO, l tablet 23:17: BID, 0 [place] 00 Refill(s) atorvastati 2017-03 No 40 mg = 1 M emoria n 40 mg 0-23 tab, PO, l oral tablet 23:17: Daily, 0 He rmann 00 Refill(s) Hydrochloro 2017-03 No 25 mg, PO, Memoria thiazide 0-23 Daily, 0 l 23:17: Refill(s) [place] 00 losartan 2017-03 No 100 mg = 1 Mem oria 100 mg oral 0-23 tab, PO, l tablet 23:17: Daily, 0 [place] 00 Refill(s) clopidogrel 2017-03 Yes 75 mg [...] date: 12/29/17 4:14:00 CDT, 1.83, m2 normal 2018- No 1,000 mL, Memori a saline 0.9% [...] ia 0-23 Route: l 20:44: IVP, Drug [place] 00 Form: SOLN, Dosing Weight 68.182, kg, ONCALL, STAT, Start date: 12/28/17 15:44:00 CDT, Duration: 1 doses or times, Dose = 2.2ml/kg, Max dose = 100ml -- "To be infused by Radiology Staff ONLY" iodixanol 2017-03 No 100 mL, Memor ia 0-23 Route: l 20:44: IVP, Drug [place] 00 Form: SOLN, Dosing Weight 68.182, kg, ONCALL, STAT, Start date: 12/28/17 15:44:00 CDT, Duration: 1 doses or times, Dose = 2.2ml/kg, Max dose = 100ml -- "To be infused by Radiology Staff ONLY" iodixanol 2017-03 No 100 mL, Memor ia 0-23 Route: l 20:44: IVP, Drug [place] Form: SOLN, Dosing Weight 68.182, kg, ONCALL, STAT, Start date: 12/28/17 15:44:00 CDT, Duration: 1 doses or times, Dose = 2.2ml/kg, Max dose = 100ml -- "To be infused by Radiology Staff ONLY" iodixanol 2017-03 No 100 mL, Memor ia 0-23 Route: l 20:44: IVP, Drug [place] Form: SOLN, Dosing Weight 68.182, kg, ONCALL, STAT, Start date: 12/28/17 15:44:00 CDT, Duration: 1 doses or times, Dose = 2.2ml/kg, Max dose = 100ml -- "To be infused by Radiology Staff ONLY" iodixanol 2017-03 No 100 mL, Memor ia 0-23 Route: l 20:44: IVP, Drug Tanvir Form: SOLN, Dosing Weight 68.182, kg, ONCALL, STAT, Start date: 12/28/17 15:44:00 CDT, Duration: 1 doses or times, Dose = 2.2ml/kg, Max dose = 100ml -- "To be infused by Radiology Staff ONLY" iodixanol 2017-03 No 100 mL, Memor ia 0-23 Route: l 20:44: IVP, Drug Tanvir Form: SOLN, Dosing Weight 68.182, kg, ONCALL, STAT, Start date: 12/28/17 15:44:00 CDT, Duration: 1 doses or times, Dose = 2.2ml/kg, Max dose = 100ml -- "To be infused by Radiology Staff ONLY" Morphine 2017-03 No 4 mg, Memoria 0-23 Route: l 18:44: IVP, ONCE, [place] 00 Dosing Weight 68.182, kg, Priority: STAT, Start [...] [facility] 0-23 Route: l 18:44: IVP, ONCE, Tanvir 00 Dosing Weight 68.182, kg, Priority: STAT, Start date: 12/28/17 13:44:00 CDT, Stop date: 12/28/17 13:44:00 CDT Isolyte S 2017-1 No 500 mL, [facility] PH-7.4 0 Route: IV, l (Bolus) IV 18:44: ONCE, Eric n Dosing Weight 68.182 kg, Start date: 12/28/17 13:44:00 CDT, Stop date: 12/28/17 13:44:00 CDT Metoclopram 2017- No 10 mg, [place] [facility] Route: l 18:38: IVP, Drug Tanvir form: INJ, ONCE, Dosing Weight 68.182, kg, [...] [facility] 0-[facility] Route: l 18:38: IVP, Drug Preston 00 form: INJ, ONCE, Dosing Weight 68.182, kg, Priority: STAT, Start date: 12/28/17 13:38:00 CDT, Stop date: 12/28/17 13:38:00 CDT Metoclopram 2017- No 10 mg, [place] [facility] Route: l 18:38: IVP, Drug Tanvir 00 form: INJ, ONCE, Dosing Weight 68.182, kg, Priority: STAT, Start date: 12/28/17 13:38:00 CDT, Stop date: 12/28/17 13:38:00 CDT Metoclopram 2017- No 10 mg, [place] [facility] Route: l 18:38: IVP, Drug Tanvir 00 form: INJ, ONCE, Dosing Weight 68.182, kg, Priority: STAT, Start date: 12/28/17 13:38:00 CDT, Stop date: 12/28/17 13:38:00 CDT Metoclopram 2017-03 No 10 mg, [place] [facility] Route: l 18:38: IVP, Drug Preston 00 form: INJ, ONCE, Dosing Weight 68.182, kg, Priority: STAT, Start date: 12/28/17 13:38:00 CDT, Stop date: 12/28/17 13:38:00 CDT Saline 2017-03 No Notes: [facility] Flush 0.9% 0-23 (Same as: l 18:09: BD Preston 00 Posiflush) Saline 2017-03 No Notes: [facility] [...] 0.9% 0-23 (Same as: l 18:09: BD [place] 00 Posiflush) Saline 2017-03 No Notes: [facility] Flush 0.9% 0-23 (Same as: l 18:09: BD Tanvir 00 Posiflush) Saline 2017-03 No Notes: [facility] Flush 0.9% 0-23 (Same as: l 18:09: BD [place] 00 Posiflush) Saline 2017-03 No Notes: [facility] Flush 0.9% 0-23 (Same as: l 18:06: BD [place] 00 Posiflush) Saline 2017-03 No Notes: Mem[facility] Flush 0.9% 0-23 (Same as: l 18:06: BD [place] 00 Posiflush) Saline 2017-03 No Notes: [facility] Flush 0.9% 0-23 (Same as: l 18:06: BD Tanvir 00 Posiflush) Saline 2017-03 No Notes: [facility] Flush 0.9% 0-23 (Same as: l 18:06: BD Tanvir 00 Posiflush) Saline 2017-03 No Notes: [facility] Flush 0.9% 0-23 (Same as: l 18:06: BD [place] 00 Posiflush) Saline 2017-03 No Notes: [facility] Flush 0.9% 0-23 (Same as: l 18:06: BD Tanvir 00 Posiflush) Saline 2017-03 No Notes: [facility] Flush 0.9% 0-23 (Same as: l 18:06: BD Tanvir 00 Posiflush) Saline 2017-03 No Notes: [facility] Flush 0.9% 0-23 (Same as: l 18:06: BD Tanvir 00 Posiflush) ondansetron 2016-0 Yes 4mg Take 1 [...] mouth ity of mg tablet 20:19: daily. [place] 56 [facility] Branch ipratropium 2016-0 Yes .5mg Inhale 0.5 Univers (ATROVENT) 5-30 mg. ity of 0.02 % 20:19: [place] nebulizer 16 Medical solution Branch albuterol 2016-0 [...] Medical mcg/actuati daily. Branch on inhaler ipratropium 2016-0 Yes .5mg Inhale 0.5 Univers (ATROVENT) 5-30 mg. ity of 0.02 % 20:19: [place] nebulizer 16 Medical solution Branch ipratropium 2015-0 Yes .5mg Inhale 0.5 Univers (ATROVENT) 5-30 mg. ity of 0.02 % 20:19: [place] nebulizer 16 Medical solution Branch levofloxaci 2015-0 Yes 500mg Take 500 U nivers n 5-30 mg by ity of (LEVAQUIN) 20:19: mouth [place] 750 mg 16 every 24 Medical tablet (twenty-fo Branch ur) hours. METOPROLOL 0 Yes 25mg Take 25 mg U nivers TARTRATE 5-30 by mouth 2 ity o f ORAL 20:19: (two) [place] 16 times Medical daily. Branch Omeprazole Yes Take by Univ ers Magnesium 5-30 mouth. ity of 20 mg 20:19: [place] capsule 16 Medical Branch predniSONE Yes 20mg Take 20 mg U nivers (DELTASONE) 5-30 by mouth ity of 20 mg 20:19: daily. [place] tablet 15 Medical Branch albuterol Yes 2.5mg [...] solution one extra every 6 hours. predniSONE 2016-0 Yes 1 PO BID x U nivers (DELTASONE) 5-30 4 days ity of 20 mg 00:00: [place] tablet 00 Medical Branch albuterol 2016-0 Yes 2.5mg Inhale 3 Uni vers (PROVENTIL) 5-30 mL every 4 it y of 2.5 mg /3 00:00: (four) [place] mL (0.083 00 hours. May Medi waqar %) also Branch nebulizer nebulize solution one extra every 6 hours. albuterol 2016-0 Yes 2.5mg Inhale 3 Uni vers (PROVENTIL) [...] solution one extra every 6 hours. albuterol 2016-0 Yes 2.5mg Inhale 3 Uni vers (PROVENTIL) 5-30 mL every 4 it y of 2.5 mg /3 00:00: (four) [place] mL (0.083 00 hours. May Medi waqar %) also Branch nebulizer nebulize solution one extra every 6 hours. predniSONE 2016-0 Yes 1 PO BID x U nivers (DELTASONE) 5-30 4 days ity of 20 mg 00:00: [place] tablet 00 Medical Branch albuterol 2016-0 Yes 2.5mg Inhale 3 Uni vers (PROVENTIL) [...] solution one extra every 6 hours. albuterol 2015- Yes 2.5mg Inhale 3 Uni vers (PROVENTIL) [...] solution one extra every 6 hours. albuterol 2016-0 Yes 2.5mg Inhale 3 Uni vers (PROVENTIL) 5-30 mL every 4 it y of 2.5 mg /3 00:00: (four) [place] mL (0.083 00 hours. May Medi waqar %) also Branch nebulizer nebulize solution one extra every 6 hours. albuterol 2016-0 Yes 2.5mg Inhale 3 Uni vers (PROVENTIL) 5-30 mL every 4 it y of 2.5 mg /3 00:00: (four) [place] mL (0.083 00 hours. May Medi waqar %) also Branch nebulizer nebulize solution one extra every 6 hours. albuterol 2016-0 Yes 2.5mg Inhale 3 Uni vers (PROVENTIL) 5-30 mL every 4 it y of 2.5 mg /3 00:00: (four) [place] mL (0.083 00 hours. May Medi waqar %) also Branch nebulizer nebulize solution one extra every 6 hours. albuterol 2016-0 Yes 2.5mg Inhale 3 Uni vers (PROVENTIL) 5-30 mL every 4 it y of 2.5 mg /3 00:00: (four) [place] mL (0.083 00 hours. May Medi waqar %) also Branch nebulizer nebulize solution one extra every 6 hours. albuterol 2016-0 Yes 2.5mg Inhale 3 Uni vers (PROVENTIL) 5-30 mL every 4 it y of 2.5 mg /3 00:00: (four) [place] mL (0.083 00 hours. May Medi waqar %) also Branch nebulizer nebulize solution one extra every 6 hours. albuterol 2016-0 Yes 2.5mg Inhale 3 Uni vers (PROVENTIL) 5-30 mL every 4 it y of 2.5 mg /3 00:00: (four) [place] mL (0.083 00 hours. May Medi waqar %) also Branch nebulizer nebulize solution one extra every 6 hours. albuterol 2016-0 Yes 2.5mg Inhale 3 Uni vers (PROVENTIL) 5-30 mL every 4 it y of 2.5 mg /3 00:00: (four) [place] mL (0.083 00 hours. July Medi waqar %) also Branch nebulizer nebulize solution one extra every 6 hours. predniSONE 2015-0 2020- No 1 PO BID x Univers (DELTASONE) 08-04 4 days ity o f 20 mg 00:00: 00:00 [place] tablet 00 :00 [facility] Immunizations Ordered Immunization Filled Immunization Date Status Commen ts Source Name Name pneumococcal 2007-10-21 Completed [facility] 23-valent vaccine 13:48:00 [place] pneumococcal 2007-10-21 Completed [facility] 23-valent vaccine 13:48:00 [place] pneumococcal 2007-10-21 Completed [facility] 23-valent vaccine 13:48:00 [place] pneumococcal 2007-10-21 Completed [facility] 23-valent vaccine 13:48:00 [place] pneumococcal 2007-10-21 Completed [facility] 23-valent vaccine 13:48:00 [place] pneumococcal 2007-10-21 Completed [facility] 23-valent vaccine 13:48:00 [place] pneumococcal 2007-10-21 Completed [facility] 23-valent vaccine 13:48:00 [place] pneumococcal 2007-10-21 Completed [facility] 23-valent vaccine 13:48:00 [place] Vital Signs Vital Name Observation Time Observation Value Comments Source Systolic blood 2022-03-16 03:00:00 110 mm[Hg] Univer sity of pressure [facility] Diastolic blood 2022-03-16 03:00:00 66 mm[Hg] Unive rsity of [facility] Heart rate 2022-03-16 03:00:00 62 /min [facility] Body temperature 2022-03-16 03:00:00 36.5 Azul [facility] Respiratory rate 2022-03-16 03:00:00 28 /min [facility] Oxygen saturation in 2022-03-16 03:00:00 100 /min [facility] Arterial blood by [place] [facility] Pulse oximetry Branch Body height 2022-03-15 23:51:00 172.7 cm [facility] Body weight 2022-03-15 23:51:00 61.236 kg [facility] BMI 2022-03-15 23:51:00 20.53 kg/m2 [facility] Heart rate 2022-03-13 17:24:00 70 /min [facility] [place] [facility] Respiratory rate 2022-03-13 17:24:00 18 /min Univ ersity of [place] [facility] Oxygen saturation in 2022-03-13 17:24:00 96 /min University of Arterial blood by [facility] Pulse oximetry Branch Systolic blood 2022-03-13 14:08:00 135 mm[Hg] Univer sity of pressure [place] [facility] Diastolic blood 2022-03-13 14:08:00 58 mm[Hg] Unive rsity of pressure [place] [facility] Body temperature 2022-03-13 14:08:00 36.44 Azul Univ ersity of [place] [facility] Body height 2022-03-10 22:15:00 172.7 cm [facility] [place] [facility] Body weight 2022-03-10 22:15:00 64.411 kg [facility] [place] [facility] BMI 2022-03-10 22:15:00 21.59 kg/m2 [facility] [place] [facility] Systolic blood 2022-01-06 15:35:00 109 mm[Hg] Univer sity of pressure [place] [facility] Diastolic blood 2022-01-06 15:35:00 73 mm[Hg] Unive rsity of pressure [place] [facility] Heart rate 2022-01-06 15:35:00 103 /min [facility] [place] [facility] Body height 2022-01-06 15:35:00 172.7 cm [facility] [place] [facility] Body weight 2022-01-06 15:35:00 64.411 kg [facility] [place] [facility] BMI 2022-01-06 15:35:00 21.59 kg/m2 [facility] [place] [facility] Oxygen saturation in 2022-01-06 15:35:00 99 /min University of Arterial blood by [facility] Pulse oximetry Branch Systolic blood 2021-12-11 21:12:00 114 mm[Hg] Univer sity of pressure [place] [facility] Diastolic blood 2021-12-11 21:12:00 52 mm[Hg] Unive rsity of pressure [place] [facility] Heart rate 2021-12-11 21:12:00 68 /min [facility] [place] [facility] Body temperature 2021-12-11 21:12:00 35.67 Azul Univ ersity of [place] [facility] Respiratory rate 2021-12-11 21:12:00 18 /min Univ ersity of [place] [facility] Oxygen saturation in 2021-12-11 21:12:00 100 /min University of Arterial blood by [facility] Pulse oximetry Branch Body weight 2021-12-11 09:42:00 66.996 kg [facility] [place] [facility] BMI 2021-12-11 09:42:00 22.46 kg/m2 [facility] [place] [facility] Body height 2021-12-09 22:37:00 172.7 cm [facility] [place] [facility] Systolic blood 2021-11-26 16:33:00 140 mm[Hg] Univer sity of pressure [place] [facility] Diastolic blood 2021-11-26 16:33:00 75 mm[Hg] Unive rsity of pressure [place] [facility] Heart rate 2021-11-26 16:33:00 69 /min [facility] [place] [facility] Body temperature 2021-11-26 16:33:00 36.22 Azul Univ ersity of [place] [facility] Respiratory rate 2021-11-26 16:33:00 18 /min Univ ersity of [place] [facility] Oxygen saturation in 2021-11-26 16:33:00 97 /min University of Arterial blood by [facility] Pulse oximetry Branch Body height 2021-11-24 21:35:00 172.7 cm [facility] [place] [facility] Body weight 2021-11-24 21:35:00 63.458 kg [facility] [place] [facility] BMI 2021-11-24 21:35:00 21.27 kg/m2 [facility] [place] [facility] Systolic blood 2021-11-23 11:15:00 163 mm[Hg] Univer sity of pressure [place] [facility] Diastolic blood 2021-11-23 11:15:00 67 mm[Hg] Unive rsity of pressure [place] [facility] Heart rate 2021-11-23 11:15:00 68 /min [facility] [place] [facility] Respiratory rate 2021-11-23 11:15:00 20 /min Univ ersity of [place] [facility] Oxygen saturation in 2021-11-23 11:15:00 98 /min University of Arterial blood by [facility] Pulse oximetry Branch Body temperature 2021-11-23 06:12:00 36.17 Azul Univ ersity of [place] [facility] Body weight 2021-11-23 06:12:00 68.04 kg [facility] [place] [facility] BMI 2021-11-23 06:12:00 22.15 kg/m2 [facility] [place] [facility] Systolic blood 2021-11-08 20:37:00 156 mm[Hg] Univer sity of pressure [place] [facility] Diastolic blood 2021-11-08 20:37:00 77 mm[Hg] Unive rsity of pressure [place] [facility] Heart rate 2021-11-08 20:37:00 68 /min [facility] [place] [facility] Respiratory rate 2021-11-08 20:37:00 16 /min Univ ersity of [place] [facility] Oxygen saturation in 2021-11-08 20:37:00 97 /min University of Arterial blood by [place] [facility] Pulse oximetry Branch Body temperature 2021-11-08 17:23:00 36.44 Azul Univ ersity of [place] [facility] Body height 2021-11-08 17:23:00 175.3 cm [facility] [place] [facility] Body weight 2021-11-08 17:23:00 68.04 kg [facility] [place] [facility] BMI 2021-11-08 17:23:00 22.15 kg/m2 [facility] [place] [facility] Systolic blood 2021-08-31 22:00:00 143 mm[Hg] Univer sity of pressure [place] [facility] Diastolic blood 2021-08-31 22:00:00 77 mm[Hg] Unive rsity of pressure [place] [facility] Heart rate 2021-08-31 22:00:00 60 /min [facility] [place] [facility] Respiratory rate 2021-08-31 22:00:00 22 /min Univ ersity of [place] [facility] Oxygen saturation in 2021-08-31 22:00:00 97 /min University of Arterial blood by [place] [facility] Pulse oximetry Branch Body temperature 2021-08-31 20:13:37 36.22 Azul Univ ersity [facility] [place] [facility] Body height 2021-08-31 19:44:00 177.8 cm [facility] [place] [facility] Body weight 2021-08-31 19:44:00 71.668 kg [facility] [place] [facility] BMI 2021-08-31 19:44:00 22.67 kg/m2 [facility] [place] [facility] Systolic blood 2019-09-20 17:45:00 145 mm[Hg] Univer sity of pressure [place] [facility] Diastolic blood 2019-09-20 17:45:00 72 mm[Hg] Unive rsity of pressure [place] [facility] Respiratory rate 2019-09-20 17:45:00 15 /min Univ ersity of [facility] Heart rate 2019-09-20 17:40:00 57 /min [facility] [place] [facility] Oxygen saturation in 2019-09-20 17:40:00 100 /min University of Arterial blood by [facility] Pulse oximetry Branch Body temperature 2019-09-20 17:27:00 37 Azul Univ ersity [facility] [place] [facility] Body height 2019-09-15 14:52:00 175.3 cm [facility] [place] [facility] [place] Body weight 2019-09-15 14:52:00 61.7 kg [facility] [place] [facility] BMI 2019-09-15 14:52:00 20.08 kg/m2 [facility] [place] [facility] Respiratory rate 2019-09-20 17:21:00 24 /min Univ ersity [facility] [place] [facility] Systolic blood 2019-09-06 15:35:00 151 mm[Hg] Univer sity of pressure [facility] Diastolic blood 2019-09-06 15:35:00 71 mm[Hg] Unive rsity of pressure [facility] Heart rate 2019-09-06 15:35:00 64 /min [facility] [place] [facility] Respiratory rate 2019-09-06 15:35:00 16 /min Univ ersity [facility] [place] [facility] Oxygen saturation in 2019-09-06 15:35:00 100 /min University of Arterial blood by [facility] Pulse oximetry Branch Body temperature 2019-09-06 12:36:00 36.89 Azul Univ ersity [facility] [place] [facility] Body height 2019-09-04 16:45:00 175.3 cm [facility] [place] [facility] Body weight 2019-09-04 16:45:00 61.689 kg [facility] [place] [facility] BMI 2019-09-04 16:45:00 20.08 kg/m2 [facility] [place] [facility] [place] Respitory Rate 2022-02-28 17:00:00 Isai Martinez Systolic (mm Hg) 2022-02-28 17:00:00 [place] Diastolic (mm Hg) 2022-02-28 17:00:00 Mem orial [place] Respitory Rate 2022-02-28 16:00:00 Memori al Tanvir Systolic (mm Hg) 2022-02-28 16:00:00 [place] Diastolic (mm Hg) 2022-02-28 16:00:00 Mem orial [place] Respitory Rate 2022-02-28 15:00:00 Memori al [place] Systolic (mm Hg) 2022-02-28 15:00:00 [place] Tanvir Diastolic (mm Hg) 2022-02-28 15:00:00 Mem orial Tanvir Temperature Oral (F) 2022-02-28 06:00:00 98.1 F [facility] Temperature Oral (F) 2022-02-28 02:00:00 98.3 F [facility] Temperature Oral (F) 2022-02-27 22:00:00 98.4 F [facility] [place] Height 2022-02-27 00:06:00 5 [ft_i] [facility] Weight 2022-02-27 00:06:00 [facility] BMI Calculated 2022-02-27 00:06:00 Memori al Tanvir Heart Rate 2021-05-31 13:08:26 [facility] [place] Respitory Rate 2021-05-31 13:08:26 Memori al Tanvir Systolic (mm Hg) 2021-05-31 13:08:16 [place] Diastolic (mm Hg) 2021-05-31 13:08:16 Mem orial [place] Temperature Oral (F) 2021-05-31 13:08:16 97.8 F [facility] Heart Rate 2021-05-31 13:08:16 [facility] Respitory Rate 2021-05-31 12:27:00 Memori al Tanvir Heart Rate 2021-05-31 08:17:45 [facility] Respitory Rate 2021-05-31 08:17:45 Memori al Tanvir Temperature Oral (F) 2021-05-31 08:16:46 97.6 F [facility] [place] Systolic (mm Hg) 2021-05-31 08:16:38 [place] Diastolic (mm Hg) 2021-05-31 08:16:38 Mem orial [place] Temperature Oral (F) 2021-05-31 04:14:17 97.7 F [facility] Systolic (mm Hg) 2021-05-31 04:14:15 [place] Diastolic (mm Hg) 2021-05-31 04:14:15 Mem orial [place] Height 2021-05-30 21:03:00 172.72 cm [facility] Weight 2021-05-30 21:03:00 [facility] BMI Calculated 2021-05-30 21:03:00 Memori al [place] Systolic (mm Hg) 2021-05-08 15:02:00 [place] Diastolic (mm Hg) 2021-05-08 15:02:00 Mem orial [place] Heart Rate 2021-05-08 15:02:00 [facility] Respitory Rate 2021-05-08 15:02:00 Memori al [facility] Height 2021-05-08 15:02:00 172.72 cm [facility] Weight 2021-05-08 15:02:00 [facility] [place] BMI Calculated 2021-05-08 15:02:00 Memori al Tanvir Systolic (mm Hg) 2021-04-07 00:00:00 [place] Diastolic (mm Hg) 2021-04-07 00:00:00 Mem orial Tanvir Temperature Oral (F) 2021-04-06 23:38:00 97.8 F [facility] Systolic (mm Hg) 2021-04-06 23:00:00 [place] Diastolic (mm Hg) 2021-04-06 23:00:00 Mem orial [place] Systolic (mm Hg) 2021-04-06 22:00:00 [place] Diastolic (mm Hg) 2021-04-06 22:00:00 Mem orial Tanvir Respitory Rate 2021-04-06 21:00:00 Memori al [place] Respitory Rate 2021-04-06 18:00:00 Memori al [facility] Respitory Rate 2021-04-06 17:00:00 Memori al [facility] Temperature Oral (F) 2021-04-06 15:19:00 97.0 F [facility] Height 2021-04-06 12:38:00 172.72 cm [facility] [place] Weight 2021-04-06 12:38:00 [facility] BMI Calculated 2021-04-06 12:38:00 Memori al [place] Systolic (mm Hg) 2020-07-16 15:00:00 [place] Diastolic (mm Hg) 2020-07-16 15:00:00 Mem orial [place] Heart Rate 2020-07-16 15:00:00 [facility] Respitory Rate 2020-07-16 15:00:00 Memori al [facility] Weight 2020-07-16 15:00:00 [facility] Systolic (mm Hg) 2020-01-16 16:30:00 [place] Diastolic (mm Hg) 2020-01-16 16:30:00 Mem orial [place] Heart Rate 2020-01-16 16:30:00 [facility] Height 2020-01-16 16:30:00 175.26 cm [facility] Weight 2020-01-16 16:30:00 [facility] BMI Calculated 2020-01-16 16:30:00 Memori al [place] Systolic (mm Hg) 2019-04-20 17:29:00 [place] Diastolic (mm Hg) 2019-04-20 17:29:00 Mem orial [place] Heart Rate 2019-04-20 17:29:00 [facility] [place] Respitory Rate 2019-04-20 17:29:00 Memori al [facility] Height 2019-04-20 17:29:00 177.8 cm [facility] Weight 2019-04-20 17:29:00 [facility] [place] BMI Calculated 2019-04-20 17:29:00 Memori al [facility] Systolic (mm Hg) 2019-03-23 16:27:00 [place] Diastolic (mm Hg) 2019-03-23 16:27:00 Mem orial [place] Heart Rate 2019-03-23 16:27:00 [facility] [place] Respitory Rate 2019-03-23 16:27:00 Memori al [place] Height 2019-03-23 16:27:00 175.26 cm [facility] Atn[facility] Weight 2019-03-23 16:27:00 [facility] [place] BMI Calculated 2019-03-23 16:27:00 Memori al [facility] Respitory Rate 2017-12-30 13:11:00 Memori al [facility] Heart Rate 2017-12-30 13:11:00 [facility] Systolic (mm Hg) 2017-12-30 13:11:00 [place] Diastolic (mm Hg) 2017-12-30 13:11:00 Mem orial [place] Temperature Oral (F) 2017-12-30 13:11:00 98.1 F [facility] [place] Temperature Oral (F) 2017-12-30 07:40:00 97.8 F [facility] Heart Rate 2017-12-30 07:40:00 [facility] [place] Systolic (mm Hg) 2017-12-30 07:40:00 [place] Diastolic (mm Hg) 2017-12-30 07:40:00 Mem orial [facility] Respitory Rate 2017-12-30 07:40:00 Memori al [place] Heart Rate 2017-12-30 00:29:00 [facility] [place] Temperature Oral (F) 2017-12-30 00:29:00 97.6 F [facility] Respitory Rate 2017-12-30 00:29:00 Memori al [place] Systolic (mm Hg) 2017-12-30 00:29:00 [place] Diastolic (mm Hg) 2017-12-30 00:29:00 Mem orial [place] Weight 2017-12-29 02:05:00 [facility] BMI Calculated 2017-12-29 02:05:00 Memori al [place] Height 2017-12-29 02:05:00 175.26 cm [facility] Weight 2017-12-28 18:05:00 [facility] BMI Calculated 2017-12-28 18:05:00 Memori al [place] Height 2017-12-28 18:05:00 175.26 cm [facility] Procedures Procedure Date / Time Performing Clinician Source Performed XR CHEST 1 VW 2022-03-16 01:15:06 [facility] XR KUB 2022-03-16 01:14:39 [facility] URINALYSIS 2022-03-16 00:35:00 [facility] TROPONIN I 2022-03-16 [facility]:05[facility]OLIC PANEL 2022-03-16 00:05:00 Shruthi Albert [facility] ([id number]) Medical Branch CBC WITH DIFF 2022-03-16 00:05:00 Shruthi Albert [facility] PROTHROMBIN TIME / INR 2022-03-16 00:05:00 Shruthi Albert [facility] ACTIVATED PARTIAL THRMPLAS 2022-03-16 00:05:00 Zaid Albert [facility] N-TERMINAL PRO-BNP 2022-03-16 00:05:00 Shruthi Albert [facility] VERIFYNOW ASPIRIN TEST 2022-03-13 11:03:00 Francine Keen [facility] TROPONIN I 2022-03-12 18:59:00 Alcides Sherman [facility] FL MODIFIED BARIUM SWALLOW 2022-03-12 15:21:00 Lulu Morris [facility] CT HEAD WO CONTRAST 2022-03-12 13:35:[address] [facility] TROPONIN I 2022-03-12 10:29:00 [facility] HEPATIC FUNCTION PANEL 2022-03-12 10:29:00 [facility] [id number] (ALB,T.PRO,BILI Medical Branch T,BU/BC,ALT,AST,ALK PHOS) CBC WITH DIFF 2022-03-12 10:29:00 [facility] RETICULOCYTES AUTOMATED 2022-03-12 10:29:00 Lulu Morris [facility] TROPONIN I 2022-03-12 01:47:00 [facility] POCT GLUCOSE (AUTOMATED) 2022-03-12 01:03:00 Beth Obrien [facility] XR CHEST 2 VW 2022-03-11 23:43:00 [facility] TRANSTHORACIC ECHO (TTE) 2022-03-11 17:10:28 Alcides Sherman [facility] GALV ONLY - INFLUENZA A B 2022-03-11 11:03:00 Alcides Sherman [facility] RSV PCR Medical Branch COVID-19 (ID NOW RAPID 2022-03-11 11:03:00 Lane [facility] [facility] Medical Branch LAB ONLY COVID 2022-03-11 11:03:00 Lane [facility] INTERPRETATION [facility] ACUTE CARE ARTERIAL BLOOD 2022-03-11 08:16:00 Alcides Sherman [facility] GAS [facility] D-DIMER 2022-03-11 07:48:00 [facility] MAGNESIUM 2022-03-11 07:47:00 [facility] TROPONIN I 2022-03-11 07:47:00 [facility] THYROID STIMULATING 2022-03-11 07:47:00 Alcides Sherman [facility] HORMONE [facility] BASIC METABOLIC PANEL (NA, 2022-03-11 07:47:00 [facility] K, CL, CO2, GLUCOSE, BUN, Medica l Branch CREATININE, [place]) LIPID PANEL ([id number])(TOTAL 2022-03-11 07:47:00 Lane [facility] CHOLESTEROL, [facility] TRIGLYCERIDES, HDL) CBC WITH DIFF 2022-03-11 07:47:00 [facility] N-TERMINAL PRO-BNP 2022-03-11 07:47:00 Alcides Sherman [facility] PROCALCITONIN 2022-03-11 07:47:00 [facility] URINALYSIS 2022-03-11 00:01:00 Leeanne Hawley o f [facility] HB ECG ROUTINE & RHYTHM 2022-03-10 22:58:03 Leeanne Hawley [facility] STRIP [facility] CT STROKE ANGIOGRAM HEAD 2022-03-10 22:45:10 Leeanne Hawley [facility] CT STROKE ANGIOGRAM NECK 2022-03-10 22:45:10 Leeanne Hawley [facility] CT STROKE PERFUSION W 2022-03-10 22:45:10 [facility] CT STROKE HEAD WO CONTRAST 2022-03-10 22:36:32 Leeanne Hawley [facility] TROPONIN I 2022-03-10 22:24:00 Leeanne Hawley [facility] BASIC METABOLIC PANEL (NA, 2022-03-10 22:24:00 Leeanne Hawley [facility] K, CL, CO2, GLUCOSE, BUN, Medica l Branch CREATININE, CA) CBC WITHOUT DIFF 2022-03-10 22:24:00 Leeanne Hawley [facility] GLYCOSYLATED HEMOGLOBIN 2022-03-10 22:24:00 Alcides Sherman [facility] (A1C) [facility] PROTHROMBIN TIME / INR 2022-03-10 22:24:00 Leeanne Hawley [facility] ACTIVATED PARTIAL THRMPLAS 2022-03-10 22:24:00 Leeanne Hawley [facility] HOSPITAL ADMISSION 2022-03-10 06:01:00 Doctor Unaelif, [facility] [place] AUTHORIZATION FOR RELEASE 2022-02-05 06:01:00 Doctor Unachuigned, [facility] Name [facility] [place] REFERRAL- REQUEST/RESPONSE 2021-12-30 05:01:00 Doctor Unassanais , [facility] BASIC METABOLIC PANEL (NA, 2021-12-10 09:31:00 [facility], CO2, GLUCOSE, BUN, Medica l Branch CREATININE, CA) CBC WITH DIFF 2021-12-10 09:31:[address] [facility] LACTIC ACID WHOLE BLOOD 2021-12-10 09:31:00 Ramonita [facility] LACTIC ACID WHOLE BLOOD 2021-12-10 02:26:00 Leeanne Hawely [facility] CT CHEST PULMONARY 2021-12-09 20:35:00 Leeanne Hawley [facility] ANGIOGRAM Medical Branch CT HEAD WO CONTRAST 2021-12-09 20:27:00 Leeanne Hawley [facility] URINALYSIS 2021-12-09 19:49:00 Leeanne Hawley [facility] EKG-12 LEAD 2021-12-09 19:46:25 Leeanne Hawley [facility] HB ECG ROUTINE & RHYTHM 2021-12-09 18:56:55 Leeanne Hawley [facility] AC ABG + LACTIC ACID 2021-12-09 18:43:[address] [facility] BLOOD CULTURE SCREEN 2021-12-09 18:38:00 Leeanne Hawley [facility] LIPASE 2021-12-09 18:38:00 Leaenne Hawley [facility] TROPONIN I 2021-12-09 18:38:00 Leeanne Hawley [facility] COMP. METABOLIC PANEL 2021-12-09 18:38:00 Leeanne Hawley [facility] ([id number]) [facility] [place] CBC WITH DIFF 2021-12-09 18:38:00 Leeanne Hawley [facility] PROTHROMBIN TIME / INR 2021-12-09 18:38:00 Leeanne Hawley [facility] N-TERMINAL PRO-BNP 2021-12-09 18:38:00 Leeanne Hawley [facility] COVID-19 (ID NOW RAPID 2021-12-09 18:38:00 Leeanne Hawley [facility] TESTING) Medical Branch LAB ONLY COVID 2021-12-09 18:38:00 Leeanne Hawley [facility] XR CHEST 1 VW 2021-12-09 18:32:10 Leeanne Hawley [facility] NOTICE OF PRIVACY 2021-12-09 17:39:37 Doctor Meeta, [facility] PRACTICES [facility] [place] CONSENT/REFUSAL FOR 2021-12-09 17:39:13 Doctor Meeta, [facility] DIAGNOSIS AND TREATMENT [facility] [place] DNR 2021-12-09 05:01:00 Doctor Meeta, [facility] Name [facility] [place] REFERRAL- REQUEST/RESPONSE 2021-12-09 05:01:00 Doctor Meeta , [facility] [place] TRANSTHORACIC ECHO (TTE) 2021-11-26 13:08:00 Joo Mccabe [facility] HEAD WO CONTRAST 2021-11-26 10:34:23 Fabienne Vegas [facility] TRANSTHORACIC ECHO (TTE) 2021-11-25 20:00:00 Glenys Ayala [facility] COMPLETE W/ CONTRAST Medical [facility] LIPID PANEL ([id number])(TOTAL 2021-11-25 11:55:00 Glenys Ayala [facility] CHOLESTEROL, Medical Branch TRIGLYCERIDES, HDL) TROPONIN I 2021-11-25 11:49:00 Glenys Ayala [facility] BASIC METABOLIC PANEL (NA, 2021-11-25 11:49:00 Glenys Ayala [facility] K, CL, CO2, GLUCOSE, BUN, Medica l Branch CREATININE, CA) HB ECG ROUTINE & RHYTHM 2021-11-25 11:37:48 Glenys Ayala [facility] COMP. METABOLIC PANEL 2021-11-24 18:10:00 Singer Richi [facility] ([id number]) Medical Branch CBC WITH DIFF 2021-11-24 17:40:00 Singer [facility] GLYCOSYLATED HEMOGLOBIN 2021-11-24 17:40:00 Jamie [facility] (A1C) Medical Branch N-TERMINAL PRO-BNP 2021-11-24 17:40:00 Singer Richi [facility] Medical Branch COVID-19 (ID NOW RAPID 2021-11-24 17:40:00 Singer Richi [facility] TESTING) Medical Branch LAB ONLY COVID 2021-11-24 17:40:00 Singer Richi [facility] INTERPRETATION [facility] Branch HB ECG ROUTINE & RHYTHM 2021-11-24 17:34:08 Singer [facility] EMERGENCY DEPARTMENT 2021-11-24 05:01:00 Doctor Unassanais, [facility] DOCUMENTS [facility] HOSPITAL ADMISSION 2021-11-24 05:01:00 Doctor Unaelif [facility] [place] EKG-12 LEAD 2021-11-23 11:26:31 Faustino Marcos [facility] CT ANGIOGRAM HEAD 2021-11-23 08:33:48 Faustino Marcos [facility] CT ANGIOGRAM NECK 2021-11-23 08:33:48 Faustino Marcos [facility] CT ABDOMEN PELVIS WO 2021-11-23 08:33:18 Faustino Marcos [facility] CT HEAD WO CONTRAST 2021-11-23 08:31:00 Faustino Marcos [facility] XR CHEST 1 VW 2021-11-23 06:57:34 Faustino Marcos [facility] LIPASE 2021-11-23 06:50:00 Faustino Marcos [facility] TROPONIN I 2021-11-23 06:50:00 Faustino Marcos [facility] COMP. METABOLIC PANEL 2021-11-23 06:50:00 Faustino Marcos [facility] ([id number]) [facility] CBC WITH DIFF 2021-11-23 06:50:00 Faustino Marcos [facility] PROTHROMBIN TIME / INR 2021-11-23 06:50:00 Faustino Marcos [facility] ACTIVATED PARTIAL THRMPLAS 2021-11-23 06:50:00 Faustino Marcos [facility] N-TERMINAL PRO-BNP 2021-11-23 06:50:[address] [facility] COVID-19 (ID NOW RAPID 2021-11-23 06:50:00 Faustino Marcos [facility] TESTING) [facility] CT ABDOMEN PELVIS W 2021-11-08 18:24:49 Leeanne Hawley [facility] URINALYSIS 2021-11-08 17:54:00 Leeanne Hawley [facility] CONSENT/REFUSAL FOR 2021-11-08 17:42:03 Doctor Unassigned, [facility] DIAGNOSIS AND TREATMENT [facility] LIPASE 2021-11-08 17:38:00 Leeanne Hawley [facility] TROPONIN I 2021-11-08 17:38:00 Leeanne Hawley [facility] COMP. METABOLIC PANEL 2021-11-08 17:38:00 Leeanne Hawley [facility] ([id number]) [facility] [place] CBC WITH DIFF 2021-11-08 17:38:00 Leeanne Hawley [facility] PROTHROMBIN TIME / INR 2021-11-08 17:38:00 Leeanne Hawley [facility] ACTIVATED PARTIAL THRMPLAS 2021-11-08 17:38:00 Leeanne Hawley [facility] LIZET [facility] N-TERMINAL PRO-BNP 2021-11-08 17:38:00 Leeanne Hawley [facility] COVID-19 (ID NOW RAPID 2021-11-08 17:38:00 Leeanne Hawley [facility] TESTING) Medical Branch URINALYSIS 2021-08-31 21:12:00 Keren Garcia [facility] CT ABDOMEN PELVIS W 2021-08-31 20:57:16 Keren Garcia [facility] CONTRAST [facility] LACTIC ACID WHOLE BLOOD 2021-08-31 20:05:00 [facility] 2021-08-31 20:04:00 Keren Garcia [facility] TROPONIN I 2021-08-31 20:04:00 Keren Garcia [facility] COMP. METABOLIC PANEL 2021-08-31 20:04:00 Keren Garcia [facility] ([id number]) Medical Branch CBC WITH DIFF 2021-08-31 20:04:00 Keren Garcia [facility] NOTICE OF PRIVACY 2021-08-31 19:53:25 Doctor Meeta, [facility] CONSENT/REFUSAL FOR 2021-08-31 19:41:26 Doctor Tim [facility] DIAGNOSIS AND TREATMENT [facility] CONSENT/REFUSAL FOR 2019-09-19 16:50:11 Doctor Meeta [facility] DIAGNOSIS AND TREATMENT [facility] [place] ASSIGNMENT OF BENEFITS 2019-09-19 16:49:50 Doctor Meeta [facility] COVID-19 (ID NOW RAPID 2019-09-05 13:59:00 Baljinder Blankenship [facility] TESTING) Medical Branch NOTICE OF BILLING 2019-09-05 13:42:11 Doctor Meeta [facility] PRACTICES FOR MEDICARE [facility] PATIENTS NO SHOW OR MISSED 2019-08-28 16:38:58 Doctor Meeta [facility] APPOINTMENT POLICY [facility] ACKNOWLEDGEMENT NOTICE OF PRIVACY 2019-08-28 16:38:33 Doctor Unassigned, [facility] PRACTICES [facility] CONSENT/REFUSAL FOR 2019-08-28 16:38:09 [facility]is[facility] DIAGNOSIS AND TREATMENT [facility] ASSIGNMENT OF BENEFITS 2019-08-28 16:37:41 Doctor Unassigned, [facility] Cholecystectomy 2017-04-06 06:00:00 [facility] Arterial bypass of lower 2015-04-06 06:00:00 Jovanni Ramey extremity artery Cardiac pacemaker 2011-04-06 06:00:00 [facility] ermradha procedure Placement of stent in 2006-04-06 06:00:00 sIai Martinez cardiac conduit Encounters Start End Encounter Admission Attending Care Care Encounter Source Date/Time Date/Time Type Type Clinicians Facility Department ID 2022-02-26 [facility] ER [facility] [id number] [facility] 00:[facility]:00 Encounter [facility] 2022-02-26 [facility] [id number] [facility] 00:00:00 Encounter [facility] 2021-01-03 Outpatient R QUINTEN [facility] LE [id number] Univers 05:38:44 SEBASTIAN [facility] 2021-01-03 Outpatient O QUINTEN [facility] OPH [id number] Univers 02:09:15 SEBASTIAN [facility] 2022-03-16 2022-03-16 Transition BRIJESH Coley 1.2.840.114 [id number] Univers 00:00:00 00:00:00 of Care Jessica BEAR 350.1.13.10 it y of [place] [id number] [place] [address] Branch 2022-03-15 2022-03-15 Emergency X RADHA [facility] ERT [id number] Univers 17:52:00 21:29:00 KEREN montaño [facility] 2022-03-15 2022-03-15 Emergency SchShruthi morgan [facility] 1.2.8 40.114 [id number] Univers 17:52:00 21:29:00 Keren Garcia 350.1.13.1 0 ity of [place] 4.2.7.2.686 [place] [facility] [id number] [facility] 084 Branch 2022-03-10 2022-03-13 Inpatient U CAMILLE AZPADMA ITALIA [id number] Univers 16:15:00 14:53:00 HASHEM ity of [facility] 2022-03-10 2022-03-13 Hospital Leeanne Hawley 1.2.840.1 14 [id number] Univers 16:15:00 14:53:00 Encounter Beth Obrien 350.1.13.10 ity of [facility] 4.2.7.2.686 Zac as [id number] [facility] 093 Branch 2022-02-27 2022-02-28 Inpatient [facility] [id number] Memoria 00:00:00 18:25:[address] 2022-02-27 2022-02-28 Inpatient [facility] [id number] Memoria 00:00:00 18:25:[address] 2022-02-26 2022-02-28 Inpatient U KATIE, [facility] CAR 2356 [facility] 18:00:00 12:25:00 [facility] 2022-02-26 2022-02-28 Outpatient Katie, [facility] [id number] 18:00:00 [facility]22-[facility]-26 2022-02-28 [id number] 18:00:00 12:25:00 Shanepaul Destinee 56 2022-02-05 2022-02-05 Orders Doctor ACACIA 1.2.840.114 [id number] Univers 00:00:00 00:00:00 Only Unassigned, EDWIGE 350.1.13.10 ity of [place] [facility] 4.2.7.2.686 Zac as [id number] [facility] 009 Branch 2022-01-06 2022-01-06 Technology Internship Lab, Ang - Db [facility] 1.2.840.1 14 [id number] Univers 11:45:00 12:12:36 Visit Froy Valverde [facility] 350.1.13. 10 ity of [place] 4.2.7.2.686 Zac as YUE?BLEA [id number] Ut anup CONNORS [address] [place] MEDICAL [facility] 2022-01-06 2022-01-06 Outpatient R ABRAM FROY [facility] [id number] Univers 11:00:00 11:38:34 FROY VALVERDE [facility]bo[facility] 2022-01-06 2022-01-06 Office Abram [facility] 1.2.840.114 [id number] Univers 11:00:00 11:38:34 Visit Froy [facility] 350.1.13.10 ity of [place] 4.2.7.2.686 Zac as YUE?BLEA [id number] Ut anup SORAYA 092 [place] MEDICAL OFFICE BUILDING 2021-12-30 2021-12-30 Orders Doctor ACACIA 1.2.840.114 [id number] Univers 00:00:00 00:00:00 Only Unassigned, EDWIGE 350.1.13.10 ity of [place] [facility] 4.2.7.2.686 Zac as [phone] [facility] 009 Branch 2021-12-12 2021-12-12 Transition Rhondacoreen LOTTIEmAie 1.2.840.114 [id number] Univers 00:00:00 00:00:00 of Care Mabel BEAR 350.1.13.10 i ty of [place] [id number] [facility] 403 Branch 2021-12-09 2021-12-11 Outpatient X VASU [facility] [id number] Univers 12:45:00 17:25:00 ESTEBAN montaño [facility] 2021-12-09 2021-12-11 Emergency Leeanne Hawley [facility] 1.2.840. 114 [id number] Univers 12:45:00 17:25:00 Tunde Gamez 350.1.13.10 ity of [place] 4.2.7.2.686 [facility] [id number] [facility] 081 Branch 2021-12-09 2021-12-09 Outpatient Bethany SIDHU [facility] [id number] Univers 11:00:00 11:00:00 MANISHA ity of [facility] 2021-12-09 2021-12-09 Orders Doctor ACACIA 1.2.840.114 [id number] Univers 00:00:00 00:00:00 Only Unassigned, EDWIGE 350.1.13.10 ity of [place] [facility] 4.2.7.2.686 Zac as [id number] [facility] 009 Branch 2021-11-27 2021-11-27 Transition BRIJESH Coley 1.2.840.114 [id number] Univers 00:00:00 00:00:00 of Care Jessica My BEAR 350.1.13.10 it y of [place] [id number] [facility] 403 Branch 2021-11-24 2021-11-26 Hospital Richi Castellon 1.2.840.1 14 [id number] Univers 12:26:00 16:47:00 Encounter JoseMariajose EDWIGE 350. 1.13.10 ity of [facility] 4.2.7.2.686 Zac as [id number] [facility] 098 Branch 2021-11-23 2021-11-23 Emergency X [facility] ERT [id number] Univers 01:10:00 06:46:00 FAUSTINO wilkinsboo [facility] 2021-11-23 2021-11-23 Emergency [facility] 1.2.159.625 [id number] Univers 01:10:00 06:46:00 Faustino CHANG 350.1.13.10 ity of [place] [id number] [facility] 084 Branch 2021-11-23 2021-11-23 Emergency X [facility] ERT [id number] Univers 01:10:00 06:46:00 FAUSTINO montaño [facility] 2021-11-08 2021-11-08 Emergency X [facility] ERT [id number] Univers 12:26:00 16:00:00 LEEANNE [facility]año [facility] 2021-11-08 2021-11-08 Emergency [facility] 1.2.020.280 [id number] Univers 12:26:00 16:00:00 Leeanne CHANG 350.1.13.10 i ty [facility] 4.2.7.2.686 [facility] [id number] [address] 2021-09-09 2021-09-09 Ambulatory nullFlavo MNA [id number] Memoria 14:30:00 14:30:00 Pre-Reg r Neurology 08 l [place] 2021-09-09 2021-09-09 Ambulatory nullFlavo MNA [id number] Memoria 14:30:00 14:30:00 Pre-Reg r Neurology 08 l [facility] 2021-09-09 2021-09-09 Outpatient MARISELA Buenrostro JAYNE [id number] 09:30:00 09:30:00 Rajendra Camille Maurice 2021-08-31 2021-08-31 Emergency X [facility] ERT [id number] Univers 14:47:00 17:37:00 KEREN [facility] 2021-08-31 2021-08-31 Emergency [facility] 1.2.840.114 [id number] Univers 14:47:00 17:37:00 Keren CHANG [facility].1.13.10 [facility] 4.2.7.2.686 [facility] [id number] [address] 2021-08-08 2021-08-08 Outpatient SANDRA FLORES [id number] Memoria 10:45:00 10:45:00 08 [facility] 2021-05-30 2021-05-31 Observatio nullFlavo [facility] [id number] Memoria 20:53:00 15:25:00 n bethany Ramey 84 l [facility] 2021-05-30 2021-05-31 Observatio nullFlavo [facility] [id number] Memoria 20:53:00 15:25:00 n bethany Ramye 84 l [facility] 2021-05-30 2021-05-31 Outpatient KADEN Ortiz [id number] 15:53:00 10:25:00 Jorgito 2021-05-30 2021-05-31 Outpatient KADEN Ortiz [id number] 15:53:00 10:25:00 Jorgito 84 2021-05-08 2021-05-09 Outpatient nullFlavo MNA [id number] Memoria 15:00:00 05:59:59 r Neurology 07 l [facility] 2021-05-08 2021-05-09 Outpatient nullFlavo MNA [id number] Memoria 15:00:00 05:59:59 r Neurology 07 l [place] 2021-05-08 2021-05-08 [id number] 09:00:00 23:59:59 Rajendra Smita Richards 2021-05-08 2021-05-08 Outpatient MHIE IE [id number] Memoria 09:00:00 09:00:00 07 l [place] 2021-04-06 2021-04-06 Inpatient nullFlavo [facility] [id number] Memoria 12:28:00 23:30:00 [facility] [address] [facility] 2021-04-06 2021-04-06 Inpatient nullFlavo [facility] [id number] Memoria 12:28:00 23:30:[address] [place] [address] [facility] 2021-04-06 2021-04-06 Outpatient Quinten [facility] [id number] 06:28:00 17:30:00 Sigifredo 30 [facility] 2021-04-06 2021-04-06 Outpatient Quinten [facility] [id number] 06:28:00 17:30:00 Sigifredo 30 Jason 2020-07-16 2020-07-17 Outpatient nullFlavo MNA [id number] Memoria 15:30:00 04:59:59 r Neurology 06 l [place] 2020-07-16 2020-07-17 Outpatient nullFlavo MNA [id number] Memoria 15:30:00 04:59:59 r Neurology 06 l [place] 2020-07-16 2020-07-16 [facility] [id number] 10:30:00 23:59:59 Rajendra Juliet [place] 2020-07-16 2020-07-16 Outpatient MHIE IE [id number] Memoria 10:30:00 10:30:00 06 l [place] 2020-01-16 2020-01-17 Outpatient nullFlavo MNA [id number] Memoria 16:30:00 05:59:59 r Neurology 05 l Rose Marie Ramey 2020-01-16 2020-01-17 Outpatient nullFlavo MNA [id number] Memoria 16:30:00 05:59:59 r Neurology 05 l Rose Marie Ramey 2020-01-16 2020-01-16 Outpatient NAKITA BuenrostroSCHER MHMISCHER [id number] 10:30:00 23:59:59 Rajendra 05 [place] 2020-01-16 2020-01-16 Outpatient MHIE MHIE [id number] Memoria 10:30:00 10:30:00 05 l [place] 2019-09-21 2019-09-21 Ambulatory nullFlavo MNA [id number] Memoria 14:15:00 14:15:00 Pre-Reg r Neurology 04 l Rose Marie [place] 2019-09-21 2019-09-21 Ambulatory nullFlavo MNA [id number] Memoria 14:15:00 14:15:00 Pre-Reg r Neurology 03 l Rose Marie [place] 2019-09-21 2019-09-21 Ambulatory nullFlavo MNA [id number] Memoria 14:15:00 14:15:00 Pre-Reg r Neurology 03 l Rose Marie Ramey 2019-09-21 2019-09-21 Ambulatory nullFlavo MNA [id number] Memoria 14:15:00 14:15:00 Pre-Reg r Neurology 04 l Rose Marie Ramey 2019-09-21 2019-09-21 Outpatient MHIE MHIE [id number] Memoria 09:15:00 09:15:00 04 anil Ramey 2019-09-21 2019-09-21 Outpatient MHIE MHIE [id number] Memoria 09:15:00 09:15:00 03 anil Ramey 2019-09-21 2019-09-21 Outpatient NAKITA BuenrostroSCHWILLIAM MHJOVANNISCHER [id number] 09:15:00 09:15:00 Rajendra 03 [place] 2019-09-21 2019-09-21 Outpatient MARISELA Buenrostro MHJOVANNISCHER [id number] 09:15:00 09:15:00 Rajendra 04 [place] 2019-09-20 2019-09-20 [facility] [id number] [id number] Univers 09:06:00 12:51:00 Encounter Sebastian Madsenton 350.1.13.10 [place] of [place] [id number] [address] 2019-09-20 2019-09-20 Anesthesia Pablo Fairbanks [facility] 1.2.840.11 [id number] Univers 11:44:00 12:22:00 WardAlley love 350.1.13.10 [place] [id number] [address] 2019-09-19 2019-09-19 Outpatient R BEN ANGELES [facility] [id number] Univers 13:45:00 13:45:00 ity of [facility] 2019-09-19 2019-09-19 Laboratory Only, Adc Test [facility] 1.2.840. 114 [id number] Univers 11:51:03 12:06:03 Only Ben [place] 350.1.13.10 it[place] of [place] [id number] [address] 2019-09-06 2019-09-06 [facility] 1.2.304.078 [id number] Univers 07:16:00 10:35:00 Encounter Sebastian Chang 350.1.13.10 [place] [id number] [address] 2019-09-05 2019-09-05 Outpatient R BEN ANGELES [facility] [id number] Univers 09:00:00 09:00:00 ity of [facility] 2019-09-05 2019-09-05 Laboratory Only, Adc Test [address] 114 [id number] Univers 08:32:02 08:47:02 Only Ben [place] 350.1.13.10 [place] of [place] [id number] [address] 2019-09-05 2019-09-05 Orders Doctor ACACIA 1.2.840.114 [id number] Univers 00:00:00 00:00:00 Only Unassigned, EDWIGE 350.1.13.10 ity of [place] [facility] 4.2.7.2.686 Zac as [id number] [facility] 009 [place] 2019-08-28 2019-08-28 Technology Internship Yuni, [facility] 1.2.8 40.114 [id number] Univers 11:46:40 12:01:40 Visit Sebastian Shipley 350.1.13.1 0 it[place] of [place] Professio [id number] Ut dical [address] 2019-08-28 2019-08-28 Outpatient R QUINTEN [facility] [id number] Univers 12:00:00 12:00:00 SEBASTIAN [facility]año [facility] 2019-06-20 2019-06-21 Outpatient nullFlavo MNA [id number] Memoria 16:15:00 04:59:59 r Neurology 02 l Rose Marie Ramey 2019-06-20 2019-06-21 Outpatient nullFlavo MNA [id number] Memoria 16:15:00 04:59:59 r Neurology 02 l Rose Marie Ramey 2019-06-20 2019-06-20 Outpatient MARA BuenrostroMISCHER MHMISCHER [id number] 11:15:00 23:59:59 Rajendra 02 [place] 2019-06-20 2019-06-20 Outpatient MHIE MHIE [id number] Memoria 11:15:00 11:15:00 02 anil Ramey 2019-05-15 2019-05-15 Emergency [facility] [id number]- Congregation 10:41:00 10:41:00 [id number] Hospi ta l (Beaumo nt) 2019-05-13 2019-05-13 Outpatient 1 HARJIT SALINAS OBE [id number]- Congregation 19:58:00 19:58:00 JESUS [id number] Hospi ta l (Beaumo nt) 2019-04-20 2019-04-21 Outpatient nullFlavo MNA [id number] Memoria 17:45:00 05:59:59 r Neurology 01 l Rose Marie Ramey 2019-04-20 2019-04-21 Outpatient nullFlavo MNA [id number] Memoria 17:45:00 05:59:59 r Neurology 01 l Rose Marie Ramey 2019-04-20 2019-04-20 Outpatient MARA BuenrostroAZSCHER MHMISCHER [id number] 11:45:00 23:59:59 Rajendra 01 [place] 2019-04-20 2019-04-20 Outpatient MHIE MHIE [id number] Memoria 11:45:00 11:45:00 01 anil Ramey 2019-03-23 2019-03-24 Outpatient nullFlavo MNA [id number] Memoria 17:00:00 05:59:59 r Neurology 00 l Rose Marie Ramey 2019-03-23 2019-03-24 Outpatient nullFlavo MNA [id number] Memoria 17:00:00 05:59:59 r Neurology 00 l [place] 2019-03-23 2019-03-23 Out[facility]itra[facility] [id number] 11:00:00 23:59:59 Rajendra 00 [facility] 2019-03-23 2019-03-23 Outpatient MHIE MHIE [id number] Memoria 11:00:00 11:00:00 00 [facility] 2017-12-28 2017-12-30 Observatio nullFlavo [facility] [id number] Memoria 18:08:00 16:59:00 n bethany Ramey [address] [facility] 2017-12-28 2017-12-30 Observatio nullFlavo [facility] [id number] Memoria 18:08:00 16:59:00 n bethany Ramey 67 l [facility] 2017-12-28 2017-12-30 [facility] Now[facility] [id number] 13:08:00 11:59:00 Divina Hubbard Gayla 2007-08-24 2007-08-24 Outpatient [facility] [id number] Univers 00:00:00 11:29:53 9 [facility] 2007-07-27 2007-07-27 Outpatient [facility] [id number] Univers 00:00:00 10:45:47 3 [facility] Results Test Description Test Time Test Comments Results Result Comments Source TROPONIN I 2022-03-16 00:50:55 Test Item Value Reference Range Interpretation Comme nts TROPONIN I (test code = 0.008 ng/mL See_Comment [Au tomated message] The [id number]) system which ge nerated this result tra [...] biotin. Lab Interpretation Normal (test code = 31449-7) [id number] 00:47:34 Test Item Value Reference Range Interpretation Comments NT-proBNP (test code 130 pg/mL See_Comment H [Autom ated = [id number]) message] The system which generated this result transmitted reference range : <=125. The reference range was not used to interpret this result as normal/abnormal . ANDREA (test code = ANDREA) Biotin has been reported to cause a negative bias, interpret results relative to patient's use of biotin. Lab Interpretation Abnormal (test code = 07000-0) [facility] WITH [id number] 00:46:39 Test Item Value Reference Range Interpretation Comments WBC (test code = See_Comment [Automated 7890-2) message] The sy stem which generated this result transmitted reference range : 4.20 - 10.70 10*3/?L. The reference range was not used to interpret this result as normal/abnormal . RBC (test code = See_Comment L [Automated 929-8) message] The sy stem which generated this result transmitted reference range : 4.26 - 5.52 10*6/?L. The reference range was not used to interpret this result as normal/abnormal . HGB (test code = 9.4 g/dL 12.2-16.4 L 718-7) HCT (test code = 31.4 % 38.4-49.3 L 4544-3) MCV (test code = 86.0 fL 81.7-95.6 787-2) MCH (test code = 25.8 pg 26.1-32.7 L 785-6) MCHC (test code = 29.9 g/dL 31.2-35.0 L 786-4) RDW-SD (test code = 65.2 fL 38.5-51.6 H 49536-0) RDW-CV (test code = 21.2 % 12.1-15.4 H 788-0) PLT (test code = See_Comment [Automated 777-3) message] The sy stem which generated this result transmitted reference range : 150 - 328 10*3/ ?L. The reference r bret was not used to interpret this result as normal/abnormal . MPV (test code = Not Measure d 80428-2) NRBC/100 WBC (test See_Comment [Automat ed code = 2923303971) message] The system which generated this result transmitted reference range : 0.0 - 10.0 /100 WBCs. The refer ence range was not u sed to interpret th is result as normal/abnormal . NRBC x10^3 (test code See_Comment [Auto mated = 5108388467) message] The s ystem which generated this result transmitted reference range : 10*3/?L. The reference range was not used to interpret this result as normal/abnormal . GRAN MAT (NEUT) % 49.7 % (test code = 770-8) IMM GRAN % (test code 0.40 % = 1442089913) LYMPH % (test code = 36.2 % 736-9) MONO % (test code = 10.0 % 5905-5) EOS % (test code = 2.6 % 713-8) BASO % (test code = 1.1 % 706-2) GRAN MAT x10^3(ANC) 2.64 10*3/uL 1.99-6.95 (test code = 5581070361) IMM GRAN x10^3 (test 0.00-0.06 code = 9569291722) LYMPH x10^3 (test code 1.92 10*3/uL 1.09-3.23 = 731-0) MONO x10^3 (test code 0.53 10*3/uL 0.36-1.02 = 742-7) EOS x10^3 (test code = 0.14 10*3/uL 0.06-0.53 711-2) BASO x10^3 (test code 0.06 10*3/uL 0.01-0.09 = 704-7) Lab Interpretation Abnormal (test code = 60559-9) [facility] [id number] 00:38:57 Test Item Value Reference Range Interpretation Comments APTT Patient (test See_Comment [Automat ed code = 3173-2) message] The system which generated this result transmitted reference range : 23 - 38 Seconds . The reference range was not used to interpr et this result as normal/abnormal . ANDREA (test code = ANDREA) The [facility] patient population mean normal value for aPTT is 30 seconds. Lab Interpretation Normal (test code = 57906-3) [facility]th[facility] / [id number] 00:36:57 Test Item Value Reference Range Interpretation Comments [...] tions. Lab Interpretation (test Normal code = 66834-3) [facility] (46633)2022-03-16 00:36:37 Test Item Value Reference Range Interpretation Comments NA (test code = 134 mmol/L 135-145 L 4825874594) K (test code = 4.3 mmol/L 3.5-5.0 4872868445) CL (test code = 104 mmol/L 98-108 4870178364) CO2 TOTAL (test code = 23 mmol/L 23-31 6885760335) AGAP (test code = 2-16 1094566144) BUN (test code = 14 mg/dL 7-23 9088310215) GLUCOSE (test code = 106 mg/dL 70-110 7134771250) CREATININE (test code = 0.87 mg/dL 0.60-1.25 0768626323) TOTAL BILI (test code = 0.4 mg/dL 0.1-1.4 7908369210) CALCIUM (test code = 8.7 mg/dL 8.6-10.6 3262522953) T PROTEIN (test code = 6.7 g/dL 6.3-8.2 8230995213) ALBUMIN (test code = 4.0 g/dL 3.5-5.0 3417137114) ALK PHOS (test code = 87 U/L 34-122 1335395911) ALTv (test code = 13 U/L 5-50 1742-6) AST(SGOT) (test code = 27 U/L 13-40 6510962976) eGFR (test code = mL/min/1.73m2 6897502832) ANDREA (test code = ANDREA) Association of [...] tests). Lab Interpretation Abnormal (test code = 51650-6) [facility] [id number] 02:27:10 Test Item Value Reference Interpretation Comments Range TROPONIN I (test 0.008 ng/mL See_Comment [Automated code = 6857677550) message] The system which generated this result [...] biotin. Lab Interpretation Normal (test code = 60500-9) [facility]2022-03-12 01:04:26 Test Item Value Reference Range Interpretation Comments POCT GLU (test code = 0869000228) 141 mg/dL 70-110 H Lab Interpretation (test code = Abnormal 11335-0) [facility] - Transthoracic echo (TTE) 2022-03-12 00:55:00 Test Item Value Reference Range Interpretation Comments Height (test code = in 5352079192) Weight (test code = lbs 5300150610) Systolic BP (test code = mmHg 2286699161) Diastolic BP (test code mmHg = 8333667648) Heart Rate (test code = bpm 3023815806) BSA (test code = 1.77 m2 8174813329) LVIDD (test code = 4.60 cm 7666368002) Left Ventricular End 95.4 mL Diastolic Volume by Teichholz Method (test code = 7041388) IVS (test code = 0.85 cm 6187704988) Interventricular Septum 0.85 cm Diastolic Thickness by 2D (test code = 6790004) LVPWD (test code = 0.89 cm 8780766693) PW (test code = 0.89 cm 0.6-1.2 9473309460) EF(Teich) (test code = 64.00 % 3450684822) LVIDS (test code = 3.00 cm 4376769234) Left Ventricular End 34.3 mL Systolic Volume by Teichholz Method (test code = 0827556) FS (test code = 35 % 4926306809) EF - 2D (test code = 64.00 % 11636979) LVOT diameter (test code 1.93 cm = 9516043343) LVOT area (test code = 2.90 cm2 8973811528) Ao root diam (test code 2.42 cm = 6356709483) Aortic root (test code = 2.42 cm 4550463925) Ao root annulus (test 2.42 cm code = 1475020980) LA size (test code = 3.4 cm 6370621342) TR Peak Adry (test code = 281.0 cm/s 4160649412) Triscuspid Valve mmHg Regurgitation Peak Gradient (test code = 9408490416) MV Peak E Adry (test code 77.1 cm/s = 6936608805) MV Peak A Adry (test code 75.4 cm/s = 2144418394) E/A ratio (test code = ratio 8417132529) E wave decelartion time 0.32 s (test code = 1187597949) MV Prop V (test code = 47.70 cm/s 3409848467) MV E/e' septal (test 8.8 cm/s code = 0507434104) LVOT stroke volume (test 83.20 cm3 code = 8433658623) LVOT peak adry (test code 128.5 cm/s = 2778676602) LVOT mn grad (test code mmHg = 5047261040) AV LVOT peak gradient mmHg (test code = 5482426101) LVOT peak VTI (test code 28.4 cm = 2190790670) LV V1 mean (test code = 75.50 cm/s 1851718444) Left Ventricular Cardiac 4.9 L/min Output (test code = 5966069) Aortic HR (test code = BPM 3293974029) Ao peak adry (test code = 148.0 cm/s 6672432309) AV area peak adry (test 2.5 cm2 code = 2904665909) Ao max PG (test code = 8.80 mm[Hg] 8147986664) AV peak gradient (test mmHg code = 6316573342) Tapse (test code = 2.22 cm 7274636676) LAV(MOD-sp4) (test code 56.30 mL = 6291230362) LA Volume Index (BP) 32.9 mL/m2 (test code = 6773343467) LA volume (BP) (test 58.1 mL code = 2700976930) LAV(MOD-sp2) (test code 56.30 mL = 7390356308) Radiology Study observation (narrative) (test code = 81342-8) ANDREA (test code = ANDREA) ?Left?Ventricle: Left [...] and spectral Doppler. Saline contrast was performed. [facility]2022-12-24 06:23:00 Test Item Value Reference Range Interpretation Comments Phosphorus (test code = Phosphorus) 3.4 2.5-4.5 [place] 591442-12-24 06:23:00 Test Item Value Reference Range Interpretation Comments Magnesium Lvl (test code = Magnesium 2.0 1.8-2.4 Lvl) [place] 591442-12-24 06:23:00 Test Item Value Reference Range Interpretation Comments Glucose Lvl (test code = Glucose Lvl) 105 70-99 [place] 591442-12-24 06:23:00 Test Item Value Reference Range Interpretation Comments BUN (test code = BUN) 16 7-22 [place] 591442-12-24 06:23:00 Test Item Value Reference Range Interpretation Comments Creatinine Lvl (test code = Creatinine 0.85 0.50-1.40 Lvl) [place] 591442-12-24 06:23:00 Test Item Value Reference Range Interpretation Comments Sodium Lvl (test code = Sodium Lvl) 136 135-145 [place] 591442-12-24 06:23:00 Test Item Value Reference Range Interpretation Comments Potassium Lvl (test code = Potassium 3.8 3.5-5.1 Lvl) [place] 591442-12-24 06:23:00 Test Item Value Reference Range Interpretation Comments Chloride Lvl (test code = Chloride Lvl) 105 95-109 [place] 591442-12-24 06:23:00 Test Item Value Reference Range Interpretation Comments CO2 (test code = CO2) 25 24-32 [place] 591442-12-24 06:23:00 Test Item Value Reference Range Interpretation Comments Calcium Lvl (test code = Calcium Lvl) 8.6 8.5-10.5 [place] 591442-12-24 06:23:00 Test Item Value Reference Range Interpretation Comments AGAP (test code = AGAP) 9.8 10.0-20.0 [place] 591442-12-24 06:23:00 Test Item Value Reference Range Interpretation Comments eGFR (test code = eGFR) 92 [facility]WTEBKIZWB0202[facility]21-65 06:23:00 Test Item Value Reference Range Interpretation Comments Ca Ion WB (test code = Ca Ion WB) 1.16 1.05-1.25 [place] 236032-12-24 06:23:00 Test Item Value Reference Range Interpretation Comments Ca Ion at pH 7.4 WB (test code = Ca Ion 1.17 1.05-1.25 at pH 7.4 WB) [facility]EmvmpxxNUYOYNYNH4465-64-73 06:23:00 Test Item Value Reference Range Interpretation Comments Phosphorus (test code = Phosphorus) 3.4 2.5-4.5 [facility] ArlingtonFrddbquCSEHYRCYC8603-12-56 06:23:00 Test Item Value Reference Range Interpretation Comments Magnesium Lvl (test code = Magnesium 2.0 1.8-2.4 Lvl) [facility] ArlingtonJmsmqxbDXZLEEMER4402-40-53 06:23:00 Test Item Value Reference Range Interpretation Comments Glucose Lvl (test code = Glucose Lvl) 105 70-99 [facility] ArlingtonJnqgaujUHXYKIFPO2854-95-94 06:23:00 Test Item Value Reference Range Interpretation Comments BUN (test code = BUN) 16 7-22 [facility] ArlingtonTczkarsDGRMOXXKJ6890-36-42 06:23:00 Test Item Value Reference Range Interpretation Comments Creatinine Lvl (test code = Creatinine 0.85 0.50-1.40 Lvl) [facility] ArlingtonAyoitrcTQUIWSPUD3959-14-41 06:23:00 Test Item Value Reference Range Interpretation Comments Sodium Lvl (test code = Sodium Lvl) 136 135-145 [facility] ArlingtonGwtsthgDEZRDJCYQ2962-29-26 06:23:00 Test Item Value Reference Range Interpretation Comments Potassium Lvl (test code = Potassium 3.8 3.5-5.1 Lvl) [facility] ArlingtonQubzdbwSGIRWREWI2329-39-16 06:23:00 Test Item Value Reference Range Interpretation Comments Chloride Lvl (test code = Chloride Lvl) 105 95-109 [place] 236032-12-24 06:23:00 Test Item Value Reference Range Interpretation Comments CO2 (test code = CO2) 25 24-32 [place] 236032-12-24 06:23:00 Test Item Value Reference Range Interpretation Comments Calcium Lvl (test code = Calcium Lvl) 8.6 8.5-10.5 [place] 236032-12-24 06:23:00 Test Item Value Reference Range Interpretation Comments AGAP (test code = AGAP) 9.8 10.0-20.0 [place] 236032-12-24 06:23:00 Test Item Value Reference Range Interpretation Comments eGFR (test code = eGFR) 92 [facility]ULFVCHBP7357[facility]51[facility]04 06:23:00 Test Item Value Reference Range Interpretation Comments Segs (test code = Segs) 51.5 45.0-75.0 [place] 701252-12-24 06:23:00 Test Item Value Reference Range Interpretation Comments Lymphocytes (test code = Lymphocytes) 33.1 20.0-40.0 [place] 701252-12-24 06:23:00 Test Item Value Reference Range Interpretation Comments Monocytes (test code = Monocytes) 10.8 2.0-12.0 [place] 701252-12-24 06:23:00 Test Item Value Reference Range Interpretation Comments Eosinophils (test code = 2.9 See_Comment [A utomated message] The Eosinophils) system which ge nerated this result tra nsmitted reference range : <=4.0. The reference r bret was not used to int erpret this result as normal/abnormal . [place] 701252-12-24 06:23:00 Test Item Value Reference Range Interpretation Comments Basophils (test code = 1.7 See_Comment [Aut omated message] The Basophils) system which ge nerated this result tra nsmitted reference range : <=1.0. The reference r bret was not used to int erpret this result as normal/abnormal . [place] 701252-12-24 06:23:00 Test Item Value Reference Range Interpretation Comments Neutrophils # (test code = Neutrophils 2.8 1.5-8.1 #) [place] 701252-12-24 06:23:00 Test Item Value Reference Range Interpretation Comments Lymphocytes # (test code = Lymphocytes 1.8 1.0-5.5 #) [place] 701252-12-24 06:23:00 Test Item Value Reference Range Interpretation Comments Monocytes # (test code 0.6 See_Comment [Aut omated message] The = Monocytes #) system which generated this result tra nsmitted reference range : <=0.8. The reference r bret was not used to int erpret this result as normal/abnormal . [facility]yaeRYDXEKABNV5502-29-85 06:23:00 Test Item Value Reference Range Interpretation Comments Eosinophils # (test code 0.2 See_Comment [A utomated message] The = Eosinophils #) system whic h generated this result tra nsmitted reference range : <=0.5. The reference r bret was not used to int erpret this result as normal/abnormal . [facility] HospitalCifqqsaHQWQQPILOA4244-75-35 06:23:00 Test Item Value Reference Range Interpretation Comments Basophils # (test code 0.1 See_Comment [Aut omated message] The = Basophils #) system which generated this result tra nsmitted reference range : <=0.2. The reference r bret was not used to int erpret this result as normal/abnormal . [facility] HospitalRfnuatlRCCOKYNAKB9235-38-79 06:23:00 Test Item Value Reference Range Interpretation Comments Anisocyte (test code = 1+ *ABN*(02/28/22 Anisocyte) 12:23 AM) [place] 701252-12-24 06:23:00 Test Item Value Reference Range Interpretation Comments WBC (test code = WBC) 5.5 3.7-10.4 [facility] HospitalVlxqgdxQPCXLOXENP6431-94-13 06:23:00 Test Item Value Reference Range Interpretation Comments RBC (test code = RBC) 3.35 4.70-6.10 [place] 701252-12-24 06:23:00 Test Item Value Reference Range Interpretation Comments Hgb (test code = Hgb) 8.5 14.0-18.0 [place] 701252-12-24 06:23:00 Test Item Value Reference Range Interpretation Comments Hct (test code = Hct) 26.4 42.0-54.0 [place] 701252-12-24 06:23:00 Test Item Value Reference Range Interpretation Comments MCV (test code = MCV) 79.0 80.0-94.0 [place] 701252-12-24 06:23:00 Test Item Value Reference Range Interpretation Comments MCH (test code = MCH) 25.5 pg 27.0-31.0 [place] 701252-12-24 06:23:00 Test Item Value Reference Range Interpretation Comments MCHC (test code = MCHC) 32.3 32.0-36.0 [facility] HospitalXhngfnfOKMBWIRTCM3209-86-94 06:23:00 Test Item Value Reference Range Interpretation Comments RDW (test code = RDW) 21.3 11.5-14.5 [place] 701252-12-24 06:23:00 Test Item Value Reference Range Interpretation Comments Platelet (test code = Platelet) 144 133-450 [place] 701252-12-24 06:23:00 Test Item Value Reference Range Interpretation Comments MPV (test code = MPV) 9.0 7.4-10.[address] [facility]2022-12-24 06:23:00 Test Item Value Reference Range Interpretation Comments Ca Ion WB (test code = Ca Ion WB) 1.16 1.05-1.[address] [facility]2022-12-24 06:23:00 Test Item Value Reference Range Interpretation Comments Ca Ion at pH 7.4 WB (test code = Ca Ion 1.17 1.05-1.25 at pH 7.4 WB) [facility]2022-12-24 06:23:00 Test Item Value Reference Range Interpretation Comments Phosphorus (test code = Phosphorus) 3.4 2.5-4.5 [facility]2022-12-24 06:23:00 Test Item Value Reference Range Interpretation Comments Magnesium Lvl (test code = Magnesium 2.0 1.8-2.4 Lvl) [facility]2022-12-24 06:23:00 Test Item Value Reference Range Interpretation Comments Glucose Lvl (test code = Glucose Lvl) 105 70-99 [place] 591442-12-24 06:23:00 Test Item Value Reference Range Interpretation Comments BUN (test code = BUN) 16 7-22 [place] 591442-12-24 06:23:00 Test Item Value Reference Range Interpretation Comments Creatinine Lvl (test code = Creatinine 0.85 0.50-1.40 Lvl) [facility]2022-12-24 06:23:00 Test Item Value Reference Range Interpretation Comments Sodium Lvl (test code = Sodium Lvl) 136 135-145 [place] 591442-12-24 06:23:00 Test Item Value Reference Range Interpretation Comments Potassium Lvl (test code = Potassium 3.8 3.5-5.1 Lvl) [place] 591442-12-24 06:23:00 Test Item Value Reference Range Interpretation Comments Chloride Lvl (test code = Chloride Lvl) 105 95-109 [place] 591442-12-24 06:23:00 Test Item Value Reference Range Interpretation Comments CO2 (test code = CO2) 25 24-32 [place] 591442-12-24 06:23:00 Test Item Value Reference Range Interpretation Comments Calcium Lvl (test code = Calcium Lvl) 8.6 8.5-10.5 [place] 591442-12-24 06:23:00 Test Item Value Reference Range Interpretation Comments AGAP (test code = AGAP) 9.8 10.0-20.0 [facility]2022-12-24 06:23:00 Test Item Value Reference Range Interpretation Comments eGFR (test code = eGFR) 92 [place] 236032-12-24 06:23:00 Test Item Value Reference Range Interpretation Comments Ca Ion WB (test code = Ca Ion WB) 1.16 1.05-1.25 [place] 236032-12-24 06:23:00 Test Item Value Reference Range Interpretation Comments Ca Ion at pH 7.4 WB (test code = Ca Ion 1.17 1.05-1.25 at pH 7.4 WB) [place] 236032-12-24 06:23:00 Test Item Value Reference Range Interpretation Comments Phosphorus (test code = Phosphorus) 3.4 2.5-4.5 [place] 236032-12-24 06:23:00 Test Item Value Reference Range Interpretation Comments Magnesium Lvl (test code = Magnesium 2.0 1.8-2.4 Lvl) [place] 236032-12-24 06:23:00 Test Item Value Reference Range Interpretation Comments Glucose Lvl (test code = Glucose Lvl) 105 70-99 [place] 236032-12-24 06:23:00 Test Item Value Reference Range Interpretation Comments BUN (test code = BUN) 16 7-22 [place] 236032-12-24 06:23:00 Test Item Value Reference Range Interpretation Comments Creatinine Lvl (test code = Creatinine 0.85 0.50-1.40 Lvl) [facility]DzgcmrmUZNBJZSQU7249-09-92 06:23:00 Test Item Value Reference Range Interpretation Comments Sodium Lvl (test code = Sodium Lvl) 136 135-145 [facility] ArlingtonBxmzkkoPZTKJXWRJ6476-55-24 06:23:00 Test Item Value Reference Range Interpretation Comments Potassium Lvl (test code = Potassium 3.8 3.5-5.1 Lvl) [facility] ArlingtonAsjrphoMWBAUZMSG5404-48-64 06:23:00 Test Item Value Reference Range Interpretation Comments Chloride Lvl (test code = Chloride Lvl) 105 95-109 [facility] ArlingtonRemfkhhAJGBKELGV9393-73-69 06:23:00 Test Item Value Reference Range Interpretation Comments CO2 (test code = CO2) 25 24-32 [facility] ArlingtonCzuhuimMSEVIQELV0345-54-99 06:23:00 Test Item Value Reference Range Interpretation Comments Calcium Lvl (test code = Calcium Lvl) 8.6 8.5-10.5 [facility] ArlingtonJldjeejFDITHZIZF7691-21-43 06:23:00 Test Item Value Reference Range Interpretation Comments AGAP (test code = AGAP) 9.8 10.0-20.0 [facility] ArlingtonQgijrtwSMEMHYPDW6813-32-99 06:23:00 Test Item Value Reference Range Interpretation Comments eGFR (test code = eGFR) 92 [facility]QaquqsqMNLXXMITLS0528-00-50 06:23:00 Test Item Value Reference Range Interpretation Comments Segs (test code = Segs) 51.5 45.0-75.0 [facility] HospitalUelhcocPXTWTQGEGN4486-71-77 06:23:00 Test Item Value Reference Range Interpretation Comments Lymphocytes (test code = Lymphocytes) 33.1 20.0-40.0 [facility] HospitalOtpsenkCQTKCDTGHB6004-62-42 06:23:00 Test Item Value Reference Range Interpretation Comments Monocytes (test code = Monocytes) 10.8 2.0-12.0 [place] 701252-12-24 06:23:00 Test Item Value Reference Range Interpretation Comments Eosinophils (test code = 2.9 See_Comment [A utomated message] The Eosinophils) system which ge nerated this result tra nsmitted reference range : <=4.0. The reference r bret was not used to int erpret this result as normal/abnormal . [place] 701252-12-24 06:23:00 Test Item Value Reference Range Interpretation Comments Basophils (test code = 1.7 See_Comment [Aut omated message] The Basophils) system which ge nerated this result tra nsmitted reference range : <=1.0. The reference r bret was not used to int erpret this result as normal/abnormal . [facility] HospitalZvjzxzxIQZONSMUEK6034-67-38 06:23:00 Test Item Value Reference Range Interpretation Comments Neutrophils # (test code = Neutrophils 2.8 1.5-8.1 #) [facility] HospitalMwldfacVWILICLVXH5955-58-18 06:23:00 Test Item Value Reference Range Interpretation Comments Lymphocytes # (test code = Lymphocytes 1.8 1.0-5.5 #) [place] 701252-12-24 06:23:00 Test Item Value Reference Range Interpretation Comments Monocytes # (test code 0.6 See_Comment [Aut omated message] The = Monocytes #) system which generated this result tra nsmitted reference range : <=0.8. The reference r bret was not used to int erpret this result as normal/abnormal . [facility] HospitalOrtjzvmOUDWJEIGVX5594-60-56 06:23:00 Test Item Value Reference Range Interpretation Comments Eosinophils # (test code 0.2 See_Comment [A utomated message] The = Eosinophils #) system whic h generated this result tra nsmitted reference range : <=0.5. The reference r bret was not used to int erpret this result as normal/abnormal . [facility] HospitalSwwhwjfMONYABEPLN4825-22-22 06:23:00 Test Item Value Reference Range Interpretation Comments Basophils # (test code 0.1 See_Comment [Aut omated message] The = Basophils #) system which generated this result tra nsmitted reference range : <=0.2. The reference r bret was not used to int erpret this result as normal/abnormal . [facility] HospitalJgcaunfNGWECNFYMN8246-35-25 06:23:00 Test Item Value Reference Range Interpretation Comments Anisocyte (test code = 1+ *ABN*(02/28/22 Anisocyte) 12:23 AM) [facility] HospitalUpkxclyNRYQJBZXNZ7324-96-99 06:23:00 Test Item Value Reference Range Interpretation Comments WBC (test code = WBC) 5.5 3.7-10.4 [place] 701252-12-24 06:23:00 Test Item Value Reference Range Interpretation Comments RBC (test code = RBC) 3.35 4.70-6.10 [facility] HospitalCwctisrGNLCXOVMFY9929-28-03 06:23:00 Test Item Value Reference Range Interpretation Comments Hgb (test code = Hgb) 8.5 14.0-18.0 [facility] HospitalQnstkbpHTKFLWXVVW3051-19-83 06:23:00 Test Item Value Reference Range Interpretation Comments Hct (test code = Hct) 26.4 42.0-54.0 [facility] HospitalVghxczqMREZCBDVIZ2826-39-42 06:23:00 Test Item Value Reference Range Interpretation Comments MCV (test code = MCV) 79.0 80.0-94.0 [facility] HospitalPmzrtvdMQYOFKQIOM3396-69-82 06:23:00 Test Item Value Reference Range Interpretation Comments MCH (test code = MCH) 25.5 pg 27.0-31.0 [facility] HospitalOzrtbxqLLZCGDTAVY7171-21-60 06:23:00 Test Item Value Reference Range Interpretation Comments MCHC (test code = MCHC) 32.3 32.0-36.0 [facility] HospitalMnhlvhuEZMQNUEAVH0474-41-20 06:23:00 Test Item Value Reference Range Interpretation Comments RDW (test code = RDW) 21.3 11.5-14.5 [facility] HospitalYcdwiesULCQYNVUFX9033-14-57 06:23:00 Test Item Value Reference Range Interpretation Comments Platelet (test code = Platelet) 144 133-450 [facility] HospitalKnjeiqdYQWAGHJXHU9674-64-68 06:23:00 Test Item Value Reference Range Interpretation Comments MPV (test code = MPV) 9.0 7.4-10.4 [facility] TBTDFFA3621-14-69 06:23:00 Test Item Value Reference Range Interpretation Comments Ca Ion WB (test code = Ca Ion WB) 1.16 1.05-1.25 [facility]PARATHYROID RXEXXTD8540-81-49 06:23:00 Test Item Value Reference Range Interpretation Comments Ca Ion at pH 7.4 WB (test code = Ca Ion 1.17 1.05-1.25 at pH 7.4 WB) [facility]CHE[facility] REWPI7336-36-10 06:23:00 Test Item Value Reference Range Interpretation Comments Phosphorus (test code = Phosphorus) 3.4 2.5-4.5 [place] 591442-12-24 06:23:00 Test Item Value Reference Range Interpretation Comments Magnesium Lvl (test code = Magnesium 2.0 1.8-2.4 Lvl) [place] 591442-12-24 06:23:00 Test Item Value Reference Range Interpretation Comments Glucose Lvl (test code = Glucose Lvl) 105 70-99 [place] 591442-12-24 06:23:00 Test Item Value Reference Range Interpretation Comments BUN (test code = BUN) 16 7-22 [place] 591442-12-24 06:23:00 Test Item Value Reference Range Interpretation Comments Creatinine Lvl (test code = Creatinine 0.85 0.50-1.40 Lvl) [place] 591442-12-24 06:23:00 Test Item Value Reference Range Interpretation Comments Sodium Lvl (test code = Sodium Lvl) 136 135-145 [place] 591442-12-24 06:23:00 Test Item Value Reference Range Interpretation Comments Potassium Lvl (test code = Potassium 3.8 3.5-5.1 Lvl) [place] 591442-12-24 06:23:00 Test Item Value Reference Range Interpretation Comments Chloride Lvl (test code = Chloride Lvl) 105 95-109 [place] 591442-12-24 06:23:00 Test Item Value Reference Range Interpretation Comments CO2 (test code = CO2) 25 24-32 [place] 591442-12-24 06:23:00 Test Item Value Reference Range Interpretation Comments Calcium Lvl (test code = Calcium Lvl) 8.6 8.5-10.5 [place] 591442-12-24 06:23:00 Test Item Value Reference Range Interpretation Comments AGAP (test code = AGAP) 9.8 10.0-20.0 [place] 591442-12-24 06:23:00 Test Item Value Reference Range Interpretation Comments eGFR (test code = eGFR) 92 [place] 236032-12-24 06:23:00 Test Item Value Reference Range Interpretation Comments Ca Ion WB (test code = Ca Ion WB) 1.16 1.05-1.25 [place] 236032-12-24 06:23:00 Test Item Value Reference Range Interpretation Comments Ca Ion at pH 7.4 WB (test code = Ca Ion 1.17 1.05-1.25 at pH 7.4 WB) [facility]VWJPGEH8363[facility]93-09 06:23:00 Test Item Value Reference Range Interpretation Comments Phosphorus (test code = Phosphorus) 3.4 2.5-4.5 [place] 236032-12-24 06:23:00 Test Item Value Reference Range Interpretation Comments Magnesium Lvl (test code = Magnesium 2.0 1.8-2.4 Lvl) [facility]XxjlsjsOBAKJFCQM2175-98-35 06:23:00 Test Item Value Reference Range Interpretation Comments Glucose Lvl (test code = Glucose Lvl) 105 70-99 [place] 236032-12-24 06:23:00 Test Item Value Reference Range Interpretation Comments BUN (test code = BUN) 16 7-22 [place] 236032-12-24 06:23:00 Test Item Value Reference Range Interpretation Comments Creatinine Lvl (test code = Creatinine 0.85 0.50-1.40 Lvl) [facility]PoxgtdjAGMAUTNTM4701-86-55 06:23:00 Test Item Value Reference Range Interpretation Comments Sodium Lvl (test code = Sodium Lvl) 136 135-145 [facility]AegjjcuQXYEEJEKP5116-08-90 06:23:00 Test Item Value Reference Range Interpretation Comments Potassium Lvl (test code = Potassium 3.8 3.5-5.1 Lvl) [facility]BrcrcvaRQLCGJEIU8205-64-81 06:23:00 Test Item Value Reference Range Interpretation Comments Chloride Lvl (test code = Chloride Lvl) 105 95-109 [place] 236032-12-24 06:23:00 Test Item Value Reference Range Interpretation Comments CO2 (test code = CO2) 25 24-32 [place] 236032-12-24 06:23:00 Test Item Value Reference Range Interpretation Comments Calcium Lvl (test code = Calcium Lvl) 8.6 8.5-10.5 [place] 236032-12-24 06:23:00 Test Item Value Reference Range Interpretation Comments AGAP (test code = AGAP) 9.8 10.0-20.0 [place] 236032-12-24 06:23:00 Test Item Value Reference Range Interpretation Comments eGFR (test code = eGFR) 92 [place] 701252-12-24 06:23:00 Test Item Value Reference Range Interpretation Comments Segs (test code = Segs) 51.5 45.0-75.0 [place] 701252-12-24 06:23:00 Test Item Value Reference Range Interpretation Comments Lymphocytes (test code = Lymphocytes) 33.1 20.0-40.0 [place] 701252-12-24 06:23:00 Test Item Value Reference Range Interpretation Comments Monocytes (test code = Monocytes) 10.8 2.0-12.0 [place] 701252-12-24 06:23:00 Test Item Value Reference Range Interpretation Comments Eosinophils (test code = 2.9 See_Comment [A utomated message] The Eosinophils) system which ge nerated this result tra nsmitted reference range : <=4.0. The reference r bret was not used to int erpret this result as normal/abnormal . [place] 701252-12-24 06:23:00 Test Item Value Reference Range Interpretation Comments Basophils (test code = 1.7 See_Comment [Aut omated message] The Basophils) system which ge nerated this result tra nsmitted reference range : <=1.0. The reference r bret was not used to int erpret this result as normal/abnormal . [place] 701252-12-24 06:23:00 Test Item Value Reference Range Interpretation Comments Neutrophils # (test code = Neutrophils 2.8 1.5-8.1 #) [place] 701252-12-24 06:23:00 Test Item Value Reference Range Interpretation Comments Lymphocytes # (test code = Lymphocytes 1.8 1.0-5.5 #) [place] [address]-12-24 06:23:00 Test Item Value Reference Range Interpretation Comments Monocytes # (test code 0.6 See_Comment [Aut omated message] The = Monocytes #) system which generated this result tra nsmitted reference range : <=0.8. The reference r bret was not used to int erpret this result as normal/abnormal . [place] 701252-12-24 06:23:00 Test Item Value Reference Range Interpretation Comments Eosinophils # (test code 0.2 See_Comment [A utomated message] The = Eosinophils #) system whic h generated this result tra nsmitted reference range : <=0.5. The reference r bret was not used to int erpret this result as normal/abnormal . [facility]21[facility]71 06:23:00 Test Item Value Reference Range Interpretation Comments Basophils # (test code 0.1 See_Comment [Aut omated message] The = Basophils #) system which generated this result tra nsmitted reference range : <=0.2. The reference r bret was not used to int erpret this result as normal/abnormal . [facility]GryxqzlWIPPCIPSEE2140-77-19 06:23:00 Test Item Value Reference Range Interpretation Comments Anisocyte (test code = 1+ *ABN*(02/28/22 Anisocyte) 12:23 AM) [place] 701252-12-24 06:23:00 Test Item Value Reference Range Interpretation Comments WBC (test code = WBC) 5.5 3.7-10.4 [place] 701252-12-24 06:23:00 Test Item Value Reference Range Interpretation Comments RBC (test code = RBC) 3.35 4.70-6.10 [place] 701252-12-24 06:23:00 Test Item Value Reference Range Interpretation Comments Hgb (test code = Hgb) 8.5 14.0-18.0 [facility]MuonrtmYHNCZPKBKD8092-30-12 06:23:00 Test Item Value Reference Range Interpretation Comments Hct (test code = Hct) 26.4 42.0-54.0 [place] 701252-12-24 06:23:00 Test Item Value Reference Range Interpretation Comments MCV (test code = MCV) 79.0 80.0-94.0 [place] 701252-12-24 06:23:00 Test Item Value Reference Range Interpretation Comments MCH (test code = MCH) 25.5 pg 27.0-31.0 [place] 701252-12-24 06:23:00 Test Item Value Reference Range Interpretation Comments MCHC (test code = MCHC) 32.3 32.0-36.0 [place] 701252-12-24 06:23:00 Test Item Value Reference Range Interpretation Comments RDW (test code = RDW) 21.3 11.5-14.5 [place] 701252-12-24 06:23:00 Test Item Value Reference Range Interpretation Comments Platelet (test code = Platelet) 144 133-450 [facility]LlfqblbLUTIYSQSKZ3954-11-81 06:23:00 Test Item Value Reference Range Interpretation Comments MPV (test code = MPV) 9.0 7.4-10.[address] [facility]2022-12-24 06:23:00 Test Item Value Reference Range Interpretation Comments Ca Ion WB (test code = Ca Ion WB) 1.16 1.05-1.[address] [facility]2022-12-24 06:23:00 Test Item Value Reference Range Interpretation Comments Ca Ion at pH 7.4 WB (test code = Ca Ion 1.17 1.05-1.25 at pH 7.4 WB) [facility]2022-12-24 06:23:00 Test Item Value Reference Range Interpretation Comments Phosphorus (test code = Phosphorus) 3.4 2.5-4.5 [place] 591442-12-24 06:23:00 Test Item Value Reference Range Interpretation Comments Magnesium Lvl (test code = Magnesium 2.0 1.8-2.4 Lvl) [facility]2022-12-24 06:23:00 Test Item Value Reference Range Interpretation Comments Glucose Lvl (test code = Glucose Lvl) 105 70-99 [place] 591442-12-24 06:23:00 Test Item Value Reference Range Interpretation Comments BUN (test code = BUN) 16 7-22 [place] 591442-12-24 06:23:00 Test Item Value Reference Range Interpretation Comments Creatinine Lvl (test code = Creatinine 0.85 0.50-1.40 Lvl) [place] 591442-12-24 06:23:00 Test Item Value Reference Range Interpretation Comments Sodium Lvl (test code = Sodium Lvl) 136 135-145 [place] 591442-12-24 06:23:00 Test Item Value Reference Range Interpretation Comments Potassium Lvl (test code = Potassium 3.8 3.5-5.1 Lvl) [place] 591442-12-24 06:23:00 Test Item Value Reference Range Interpretation Comments Chloride Lvl (test code = Chloride Lvl) 105 95-109 [place] 591442-12-24 06:23:00 Test Item Value Reference Range Interpretation Comments CO2 (test code = CO2) 25 24-32 [place] 591442-12-24 06:23:00 Test Item Value Reference Range Interpretation Comments Calcium Lvl (test code = Calcium Lvl) 8.6 8.5-10.5 [place] 591442-12-24 06:23:00 Test Item Value Reference Range Interpretation Comments AGAP (test code = AGAP) 9.8 10.0-20.0 [place] 591442-12-24 06:23:00 Test Item Value Reference Range Interpretation Comments eGFR (test code = eGFR) 92 [facility]JzbcpymGKRMKKGQP4146-34-38 06:23:00 Test Item Value Reference Range Interpretation Comments Ca Ion WB (test code = Ca Ion WB) 1.16 1.05-1.25 [place] 236032-12-24 06:23:00 Test Item Value Reference Range Interpretation Comments Ca Ion at pH 7.4 WB (test code = Ca Ion 1.17 1.05-1.25 at pH 7.4 WB) [facility] ArlingtonDixgmtoWUXCKWNFH5731-28-04 06:23:00 Test Item Value Reference Range Interpretation Comments Phosphorus (test code = Phosphorus) 3.4 2.5-4.5 [facility] ArlingtonLgmcfviEDWWGKFKG4539-43-85 06:23:00 Test Item Value Reference Range Interpretation Comments Magnesium Lvl (test code = Magnesium 2.0 1.8-2.4 Lvl) [facility] ArlingtonPdzsttbBTHZNRWMJ3949-13-41 06:23:00 Test Item Value Reference Range Interpretation Comments Glucose Lvl (test code = Glucose Lvl) 105 70-99 [facility] ArlingtonXcncucwVIHODSNGB6571-25-33 06:23:00 Test Item Value Reference Range Interpretation Comments BUN (test code = BUN) 16 7-22 [place] 236032-12-24 06:23:00 Test Item Value Reference Range Interpretation Comments Creatinine Lvl (test code = Creatinine 0.85 0.50-1.40 Lvl) [place] 236032-12-24 06:23:00 Test Item Value Reference Range Interpretation Comments Sodium Lvl (test code = Sodium Lvl) 136 135-145 [place] 236032-12-24 06:23:00 Test Item Value Reference Range Interpretation Comments Potassium Lvl (test code = Potassium 3.8 3.5-5.1 Lvl) [facility] ArlingtonTweqmhqZFXDGWTAG2773-54-39 06:23:00 Test Item Value Reference Range Interpretation Comments Chloride Lvl (test code = Chloride Lvl) 105 95-109 [place] 236032-12-24 06:23:00 Test Item Value Reference Range Interpretation Comments CO2 (test code = CO2) 25 24-32 [facility] ArlingtonRhyvnzyGKTEWXACR5180-27-99 06:23:00 Test Item Value Reference Range Interpretation Comments Calcium Lvl (test code = Calcium Lvl) 8.6 8.5-10.5 [facility] ArlingtonRnlcjpnBUEAUPARS8115-91-27 06:23:00 Test Item Value Reference Range Interpretation Comments AGAP (test code = AGAP) 9.8 10.0-20.0 [facility] ArlingtonGphouxyNDTVABOLQ4217-16-84 06:23:00 Test Item Value Reference Range Interpretation Comments eGFR (test code = eGFR) 92 [facility]OzvsfmrSTSKTDRAQZ3924-07-45 06:23:00 Test Item Value Reference Range Interpretation Comments Segs (test code = Segs) 51.5 45.0-75.0 [place] 701252-12-24 06:23:00 Test Item Value Reference Range Interpretation Comments Lymphocytes (test code = Lymphocytes) 33.1 20.0-40.0 [facility] HospitalTcxnbqnFQOBWGNCZJ2301-03-64 06:23:00 Test Item Value Reference Range Interpretation Comments Monocytes (test code = Monocytes) 10.8 2.0-12.0 [place] 701252-12-24 06:23:00 Test Item Value Reference Range Interpretation Comments Eosinophils (test code = 2.9 See_Comment [A utomated message] The Eosinophils) system which ge nerated this result tra nsmitted reference range : <=4.0. The reference r bret was not used to int erpret this result as normal/abnormal . [facility] HospitalPcnouggRIFGTPUSTE6400-21-53 06:23:00 Test Item Value Reference Range Interpretation Comments Basophils (test code = 1.7 See_Comment [Aut omated message] The Basophils) system which ge nerated this result tra nsmitted reference range : <=1.0. The reference r bret was not used to int erpret this result as normal/abnormal . [place] [address]-12-24 06:23:00 Test Item Value Reference Range Interpretation Comments Neutrophils # (test code = Neutrophils 2.8 1.5-8.1 #) [facility] HospitalXpvdkhrORMTSXJHEG1707-48-27 06:23:00 Test Item Value Reference Range Interpretation Comments Lymphocytes # (test code = Lymphocytes 1.8 1.0-5.5 #) [facility] HospitalYingiayZBOMDCLZUA4158-85-04 06:23:00 Test Item Value Reference Range Interpretation Comments Monocytes # (test code 0.6 See_Comment [Aut omated message] The = Monocytes #) system which generated this result tra nsmitted reference range : <=0.8. The reference r bret was not used to int erpret this result as normal/abnormal . [place] 701252-12-24 06:23:00 Test Item Value Reference Range Interpretation Comments Eosinophils # (test code 0.2 See_Comment [A utomated message] The = Eosinophils #) system whic h generated this result tra nsmitted reference range : <=0.5. The reference r bret was not used to int erpret this result as normal/abnormal . [facility] HospitalJktflgyLYLZJKHYIO7104-27-27 06:23:00 Test Item Value Reference Range Interpretation Comments Basophils # (test code 0.1 See_Comment [Aut omated message] The = Basophils #) system which generated this result tra nsmitted reference range : <=0.2. The reference r bret was not used to int erpret this result as normal/abnormal . [facility] HospitalHqnqwnsDURSOAKPHS7727-83-90 06:23:00 Test Item Value Reference Range Interpretation Comments Anisocyte (test code = 1+ *ABN*(02/28/22 Anisocyte) 12:23 AM) [place] 701252-12-24 06:23:00 Test Item Value Reference Range Interpretation Comments WBC (test code = WBC) 5.5 3.7-10.4 [place] 701252-12-24 06:23:00 Test Item Value Reference Range Interpretation Comments RBC (test code = RBC) 3.35 4.70-6.10 [place] 701252-12-24 06:23:00 Test Item Value Reference Range Interpretation Comments Hgb (test code = Hgb) 8.5 14.0-18.0 [place] [address]-12-24 06:23:00 Test Item Value Reference Range Interpretation Comments Hct (test code = Hct) 26.4 42.0-54.0 [facility] HospitalNhablajPSTZGZAPIN8782-88-26 06:23:00 Test Item Value Reference Range Interpretation Comments MCV (test code = MCV) 79.0 80.0-94.0 [place] 701252-12-24 06:23:00 Test Item Value Reference Range Interpretation Comments MCH (test code = MCH) 25.5 pg 27.0-31.0 [facility] HospitalPfdkgdiDCIKOLDHEX4476-98-32 06:23:00 Test Item Value Reference Range Interpretation Comments MCHC (test code = MCHC) 32.3 32.0-36.0 [facility] HospitalXbnkbtdACSFTYEOPX1857-18-49 06:23:00 Test Item Value Reference Range Interpretation Comments RDW (test code = RDW) 21.3 11.5-14.5 [place] 701252-12-24 06:23:00 Test Item Value Reference Range Interpretation Comments Platelet (test code = Platelet) 144 133-450 [facility] HospitalZouosgvBWQZOGVMWS5898-05-29 06:23:00 Test Item Value Reference Range Interpretation Comments MPV (test code = MPV) 9.0 7.4-10.4 [facility] ITAEYRU3349-40-62 06:23:00 Test Item Value Reference Range Interpretation Comments Ca Ion WB (test code = Ca Ion WB) 1.16 1.05-1.25 [place] 161302-12-24 06:23:00 Test Item Value Reference Range Interpretation Comments Ca Ion at pH 7.4 WB (test code = Ca Ion 1.17 1.05-1.25 at pH 7.4 WB) [facility]2022-12-24 06:23:00 Test Item Value Reference Range Interpretation Comments Phosphorus (test code = Phosphorus) 3.4 2.5-4.5 [facility]2022-12-24 06:23:00 Test Item Value Reference Range Interpretation Comments Magnesium Lvl (test code = Magnesium 2.0 1.8-2.4 Lvl) [facility]2022-12-24 06:23:00 Test Item Value Reference Range Interpretation Comments Glucose Lvl (test code = Glucose Lvl) 105 70-99 [place] 591442-12-24 06:23:00 Test Item Value Reference Range Interpretation Comments BUN (test code = BUN) 16 7-22 [place] 591442-12-24 06:23:00 Test Item Value Reference Range Interpretation Comments Creatinine Lvl (test code = Creatinine 0.85 0.50-1.40 Lvl) [place] 591442-12-24 06:23:00 Test Item Value Reference Range Interpretation Comments Sodium Lvl (test code = Sodium Lvl) 136 135-145 [place] 591442-12-24 06:23:00 Test Item Value Reference Range Interpretation Comments Potassium Lvl (test code = Potassium 3.8 3.5-5.1 Lvl) [place] 591442-12-24 06:23:00 Test Item Value Reference Range Interpretation Comments Chloride Lvl (test code = Chloride Lvl) 105 95-109 [place] 591442-12-24 06:23:00 Test Item Value Reference Range Interpretation Comments CO2 (test code = CO2) 25 24-32 [place] 591442-12-24 06:23:00 Test Item Value Reference Range Interpretation Comments Calcium Lvl (test code = Calcium Lvl) 8.6 8.5-10.5 [place] 591442-12-24 06:23:00 Test Item Value Reference Range Interpretation Comments AGAP (test code = AGAP) 9.8 10.0-20.0 [place] 591442-12-24 06:23:00 Test Item Value Reference Range Interpretation Comments eGFR (test code = eGFR) 92 [place] 236032-12-24 06:23:00 Test Item Value Reference Range Interpretation Comments Ca Ion WB (test code = Ca Ion WB) 1.16 1.05-1.25 [place] 236032-12-24 06:23:00 Test Item Value Reference Range Interpretation Comments Ca Ion at pH 7.4 WB (test code = Ca Ion 1.17 1.05-1.25 at pH 7.4 WB) [place] 236032-12-24 06:23:00 Test Item Value Reference Range Interpretation Comments Phosphorus (test code = Phosphorus) 3.4 2.5-4.5 [place] 236032-12-24 06:23:00 Test Item Value Reference Range Interpretation Comments Magnesium Lvl (test code = Magnesium 2.0 1.8-2.4 Lvl) [facility] ArlingtonUegoauaALQKGKGLF8626-95-10 06:23:00 Test Item Value Reference Range Interpretation Comments Glucose Lvl (test code = Glucose Lvl) 105 70-99 [facility] ArlingtonPwrjhrzPEAHLHEVC6177-56-86 06:23:00 Test Item Value Reference Range Interpretation Comments BUN (test code = BUN) 16 7-22 [facility] ArlingtonCkmctegNJVFUMXYO4859-83-17 06:23:00 Test Item Value Reference Range Interpretation Comments Creatinine Lvl (test code = Creatinine 0.85 0.50-1.40 Lvl) [facility] ArlingtonFdllhsuEIHIHZRMZ2933-99-54 06:23:00 Test Item Value Reference Range Interpretation Comments Sodium Lvl (test code = Sodium Lvl) 136 135-145 [place] 236032-12-24 06:23:00 Test Item Value Reference Range Interpretation Comments Potassium Lvl (test code = Potassium 3.8 3.5-5.1 Lvl) [facility] ArlingtonRxckvhqTSPDYAXFD2839-17-77 06:23:00 Test Item Value Reference Range Interpretation Comments Chloride Lvl (test code = Chloride Lvl) 105 95-109 [facility] ArlingtonCplsdlhFQZIQTBAH9937-54-70 06:23:00 Test Item Value Reference Range Interpretation Comments CO2 (test code = CO2) 25 24-32 [facility] ArlingtonWzyhctoHLMTJHMBE6559-25-47 06:23:00 Test Item Value Reference Range Interpretation Comments Calcium Lvl (test code = Calcium Lvl) 8.6 8.5-10.5 [facility] ArlingtonHxcgkeqXBWDURLCC6964-53-39 06:23:00 Test Item Value Reference Range Interpretation Comments AGAP (test code = AGAP) 9.8 10.0-20.0 [facility] ArlingtonFoxpzmoMJEFXAZOU1407-35-57 06:23:00 Test Item Value Reference Range Interpretation Comments eGFR (test code = eGFR) 92 [facility] HospitalDlonmodTFEUPNIWCL1095-32-37 06:23:00 Test Item Value Reference Range Interpretation Comments Segs (test code = Segs) 51.5 45.0-75.0 [facility] HospitalExdemgfAOVTXXFMJM8639-56-72 06:23:00 Test Item Value Reference Range Interpretation Comments Lymphocytes (test code = Lymphocytes) 33.1 20.0-40.0 [place] 701252-12-24 06:23:00 Test Item Value Reference Range Interpretation Comments Monocytes (test code = Monocytes) 10.8 2.0-12.0 [place] 701252-12-24 06:23:00 Test Item Value Reference Range Interpretation Comments Eosinophils (test code = 2.9 See_Comment [A utomated message] The Eosinophils) system which ge nerated this result tra nsmitted reference range : <=4.0. The reference r bret was not used to int erpret this result as normal/abnormal . [place] [address]-12-24 06:23:00 Test Item Value Reference Range Interpretation Comments Basophils (test code = 1.7 See_Comment [Aut omated message] The Basophils) system which ge nerated this result tra nsmitted reference range : <=1.0. The reference r bret was not used to int erpret this result as normal/abnormal . [place] 701252-12-24 06:23:00 Test Item Value Reference Range Interpretation Comments Neutrophils # (test code = Neutrophils 2.8 1.5-8.1 #) [place] [address]-12-24 06:23:00 Test Item Value Reference Range Interpretation Comments Lymphocytes # (test code = Lymphocytes 1.8 1.0-5.5 #) [place] [address]-12-24 06:23:00 Test Item Value Reference Range Interpretation Comments Monocytes # (test code 0.6 See_Comment [Aut omated message] The = Monocytes #) system which generated this result tra nsmitted reference range : <=0.8. The reference r bret was not used to int erpret this result as normal/abnormal . [place] 701252-12-24 06:23:00 Test Item Value Reference Range Interpretation Comments Eosinophils # (test code 0.2 See_Comment [A utomated message] The = Eosinophils #) system whic h generated this result tra nsmitted reference range : <=0.5. The reference r bret was not used to int erpret this result as normal/abnormal . [place] 701252-12-24 06:23:00 Test Item Value Reference Range Interpretation Comments Basophils # (test code 0.1 See_Comment [Aut omated message] The = Basophils #) system which generated this result tra nsmitted reference range : <=0.2. The reference r bret was not used to int erpret this result as normal/abnormal . [facility]LpajqxeYIISYDRVKC1053-94-62 06:23:00 Test Item Value Reference Range Interpretation Comments Anisocyte (test code = 1+ *ABN*(02/28/22 Anisocyte) 12:23 AM) [facility] HospitalWvddcrqOLHPYTQCTM0522-06-61 06:23:00 Test Item Value Reference Range Interpretation Comments WBC (test code = WBC) 5.5 3.7-10.4 [facility] HospitalGidcknxJQPJYBCJQF2065-08-31 06:23:00 Test Item Value Reference Range Interpretation Comments RBC (test code = RBC) 3.35 4.70-6.10 [facility] HospitalZcpimqtBBWBJIRGCF8725-15-47 06:23:00 Test Item Value Reference Range Interpretation Comments Hgb (test code = Hgb) 8.5 14.0-18.0 [facility] HospitalQxdionyXZAVWSZFZD7423-39-04 06:23:00 Test Item Value Reference Range Interpretation Comments Hct (test code = Hct) 26.4 42.0-54.0 [facility] HospitalMbfnhevFULDYQUVAD3320-17-29 06:23:00 Test Item Value Reference Range Interpretation Comments MCV (test code = MCV) 79.0 80.0-94.0 [facility] HospitalXnfrqxxZELYNKJXOU7391-26-22 06:23:00 Test Item Value Reference Range Interpretation Comments MCH (test code = MCH) 25.5 pg 27.0-31.0 [facility] HospitalLcjcjujXEWUBMCUWK5983-25-08 06:23:00 Test Item Value Reference Range Interpretation Comments MCHC (test code = MCHC) 32.3 32.0-36.0 [facility] HospitalCwgmpooYEQOKZKKTR6415-19-35 06:23:00 Test Item Value Reference Range Interpretation Comments RDW (test code = RDW) 21.3 11.5-14.5 [facility] HospitalCvjcbvxECNLLYSQBO1111-30-32 06:23:00 Test Item Value Reference Range Interpretation Comments Platelet (test code = Platelet) 144 133-450 [facility] HospitalHahuvlwZNZMFQAFEJ4268-27-76 06:23:00 Test Item Value Reference Range Interpretation Comments MPV (test code = MPV) 9.0 7.4-10.4 [facility] IIFTGEG3294-66-81 06:23:00 Test Item Value Reference Range Interpretation Comments Ca Ion WB (test code = Ca Ion WB) 1.16 1.05-1.25 [facility] QBOJJZO8014-18-44 06:23:00 Test Item Value Reference Range Interpretation Comments Ca Ion at pH 7.4 WB (test code = Ca Ion 1.17 1.05-1.25 at pH 7.4 WB) [place] 67582022-12-23 15:01:18 Test Item Value Reference Range Interpretation [...] soft tissues: The regional skeleton is unchanged. [place] 67582022-12-23 15:01:18 Test Item Value Reference Range Interpretation [...] soft tissues: The regional skeleton is unchanged. [place] 67582022-12-23 15:01:18 Test Item Value Reference Range Interpretation [...] soft tissues: The regional skeleton is unchanged. [place] 67582022-12-23 15:01:18 Test Item Value Reference Range Interpretation [...] soft tissues: The regional skeleton is unchanged. [place] 67582022-12-23 15:01:18 Test Item Value Reference Range Interpretation [...] soft tissues: The regional skeleton is unchanged. [facility] RPHMONF3430-90-70 14:59:00 Test Item Value Reference Range Interpretation Comments HS Troponin I (test code = HS Troponin 20 I) [facility]TxfvwpdTSYRQJHIL6959-55-62 14:59:00 Test Item Value Reference Range Interpretation Comments HS Troponin I (test code = HS Troponin 20 I) [facility]2022-12-23 14:59:00 Test Item Value Reference Range Interpretation Comments HS Troponin I (test code = HS Troponin 20 I) [facility] [facility]123[facility] 14:59:00 Test Item Value Reference Range Interpretation Comments HS Troponin I (test code = HS Troponin 20 I) [facility]2022-12-23 14:59:00 Test Item Value Reference Range Interpretation Comments HS Troponin I (test code = HS Troponin 20 I) [facility]fyNLTIHQMRS0425-23-73 14:59:00 Test Item Value Reference Range Interpretation Comments HS Troponin I (test code = HS Troponin 20 I) [facility]2022-12-23 14:59:00 Test Item Value Reference Range Interpretation Comments HS Troponin I (test code = HS Troponin 20 I) [facility]veozegEPUJWONRU9911-10-76 14:59:00 Test Item Value Reference Range Interpretation Comments HS Troponin I (test code = HS Troponin 20 I) [facility]2022-12-23 14:59:00 Test Item Value Reference Range Interpretation Comments HS Troponin I (test code = HS Troponin 20 I) [facility]qfihkrWENMWYPRK2510-82-75 14:59:00 Test Item Value Reference Range Interpretation Comments HS Troponin I (test code = HS Troponin 20 I) [facility]2022-12-23 06:11:00 Test Item Value Reference Range Interpretation Comments Iron (test code = Iron) 34 [facility]2022-12-23 06:11:00 Test Item Value Reference Range Interpretation Comments TIBC (test code = TIBC) 383 [facility]2022-12-23 06:11:00 Test Item Value Reference Range Interpretation Comments % Satur Fe (test code = % Satur Fe) 9 [facility]2022-12-23 06:11:00 Test Item Value Reference Range Interpretation Comments Ferritin Lvl (test code = Ferritin Lvl) 10 22-323 [facility]2022-12-23 06:11:00 Test Item Value Reference Range Interpretation Comments Glucose Lvl (test code = Glucose Lvl) 108 70-99 [place] 591442-12-23 06:11:00 Test Item Value Reference Range Interpretation Comments BUN (test code = BUN) 14 7-22 [place] 591442-12-23 06:11:00 Test Item Value Reference Range Interpretation Comments Creatinine Lvl (test code = Creatinine 0.87 0.50-1.40 Lvl) [place] 591442-12-23 06:11:00 Test Item Value Reference Range Interpretation Comments Sodium Lvl (test code = Sodium Lvl) 137 135-145 [place] 591442-12-23 06:11:00 Test Item Value Reference Range Interpretation Comments Potassium Lvl (test code = Potassium 3.8 3.5-5.1 Lvl) [place] 591442-12-23 06:11:00 Test Item Value Reference Range Interpretation Comments Chloride Lvl (test code = Chloride Lvl) 103 95-109 [place] 591442-12-23 06:11:00 Test Item Value Reference Range Interpretation Comments CO2 (test code = CO2) 27 24-32 [place] 591442-12-23 06:11:00 Test Item Value Reference Range Interpretation Comments Calcium Lvl (test code = Calcium Lvl) 9.1 8.5-10.5 [place] 591442-12-23 06:11:00 Test Item Value Reference Range Interpretation Comments AGAP (test code = AGAP) 10.8 10.0-20.0 [place] 591442-12-23 06:11:00 Test Item Value Reference Range Interpretation Comments eGFR (test code = eGFR) 91 [place] 591442-12-23 06:11:00 Test Item Value Reference Range Interpretation Comments Magnesium Lvl (test code = Magnesium 1.8 1.8-2.4 Lvl) [place] 591442-12-23 06:11:00 Test Item Value Reference Range Interpretation Comments Phosphorus (test code = Phosphorus) 3.6 2.5-4.5 [place] 236032-12-23 06:11:00 Test Item Value Reference Range Interpretation Comments Iron (test code = Iron) 34 50-180 [place] 236032-12-23 06:11:00 Test Item Value Reference Range Interpretation Comments TIBC (test code = TIBC) 383 250-425 [facility]JbxwimcQYPAJTRMK2156-03-25 06:11:00 Test Item Value Reference Range Interpretation Comments % Satur Fe (test code = % Satur Fe) 9 20-48 [facility]CngmokuKYJFRSSRU5366-33-54 06:11:00 Test Item Value Reference Range Interpretation Comments Ferritin Lvl (test code = Ferritin Lvl) 10 22-275 [facility]47 06:11:00 Test Item Value Reference Range Interpretation Comments PT (test code = PT) 14.0 s 12.0-14.7 [place] 701252-12-23 06:11:00 Test Item Value Reference Range Interpretation Comments INR (test code = INR) 1.08 1 0.85-1.17 [place] 701252-12-23 06:11:00 Test Item Value Reference Range Interpretation Comments PTT (test code = PTT) 29.7 s 22.9-35.8 [place] 701252-12-23 06:11:00 Test Item Value Reference Range Interpretation Comments WBC (test code = WBC) 5.6 3.7-10.4 [place] 701252-12-23 06:11:00 Test Item Value Reference Range Interpretation Comments RBC (test code = RBC) 3.26 4.70-6.10 [facility]jjbgaxWLGMXEWMOD7408-90-49 06:11:00 Test Item Value Reference Range Interpretation Comments Hgb (test code = Hgb) 8.3 14.0-18.0 [place] 701252-12-23 06:11:00 Test Item Value Reference Range Interpretation Comments Hct (test code = Hct) 25.9 42.0-54.0 [place] 701252-12-23 06:11:00 Test Item Value Reference Range Interpretation Comments MCV (test code = MCV) 79.5 80.0-94.0 [place] 701252-12-23 06:11:00 Test Item Value Reference Range Interpretation Comments MCH (test code = MCH) 25.5 pg 27.0-31.0 [place] 701252-12-23 06:11:00 Test Item Value Reference Range Interpretation Comments MCHC (test code = MCHC) 32.1 32.0-36.0 [place] 701252-12-23 06:11:00 Test Item Value Reference Range Interpretation Comments RDW (test code = RDW) 21.9 11.5-14.5 [place] [address]-12-23 06:11:00 Test Item Value Reference Range Interpretation Comments Platelet (test code = Platelet) 143 133-450 [place] 701252-12-23 06:11:00 Test Item Value Reference Range Interpretation Comments MPV (test code = MPV) 9.2 7.4-10.4 [place] [address]-12-23 06:11:00 Test Item Value Reference Range Interpretation Comments Segs (test code = Segs) 54.7 45.0-75.0 [place] [address]-12-23 06:11:00 Test Item Value Reference Range Interpretation Comments Lymphocytes (test code = Lymphocytes) 31.7 20.0-40.[address]12-23 06:11:00 Test Item Value Reference Range Interpretation Comments Monocytes (test code = Monocytes) 8.9 2.0-12.0 [place] [address]-12-23 06:11:00 Test Item Value Reference Range Interpretation Comments Eosinophils (test code = 2.8 See_Comment [A utomated message] The Eosinophils) system which ge nerated this result tra nsmitted reference range : <=4.0. The reference r bret was not used to int erpret this result as normal/abnormal . [place] [address]-12-23 06:11:00 Test Item Value Reference Range Interpretation Comments Basophils (test code = 1.9 See_Comment [Aut omated message] The Basophils) system which ge nerated this result tra nsmitted reference range : <=1.0. The reference r bret was not used to int erpret this result as normal/abnormal . [place] [address]-12-23 06:11:00 Test Item Value Reference Range Interpretation Comments Neutrophils # (test code = Neutrophils 3.0 1.5-8.1 #) [place] [address]-12-23 06:11:00 Test Item Value Reference Range Interpretation Comments Lymphocytes # (test code = Lymphocytes 1.8 1.0-5.5 #) [place] [address]-12-23 06:11:00 Test Item Value Reference Range Interpretation Comments Monocytes # (test code 0.5 See_Comment [Aut omated message] The = Monocytes #) system which generated this result tra nsmitted reference range : <=0.8. The reference r bret was not used to int erpret this result as normal/abnormal . [place] 701252-12-23 06:11:00 Test Item Value Reference Range Interpretation Comments Eosinophils # (test code 0.2 See_Comment [A utomated message] The = Eosinophils #) system whic h generated this result tra nsmitted reference range : <=0.5. The reference r bret was not used to int erpret this result as normal/abnormal . [place] 701252-12-23 06:11:00 Test Item Value Reference Range Interpretation Comments Basophils # (test code 0.1 See_Comment [Aut omated message] The = Basophils #) system which generated this result tra nsmitted reference range : <=0.2. The reference r bret was not used to int erpret this result as normal/abnormal . [place] 701252-12-23 06:11:00 Test Item Value Reference Range Interpretation Comments Anisocyte (test code = 1+ *ABN*(02/27/22 Anisocyte) 12:11 AM) [place] 161302-12-23 06:11:00 Test Item Value Reference Range Interpretation Comments Ca Ion WB (test code = Ca Ion WB) 1.19 1.05-1.25 [place] 161302-12-23 06:11:00 Test Item Value Reference Range Interpretation Comments Ca Ion at pH 7.4 WB (test code = Ca Ion 1.20 1.05-1.25 at pH 7.4 WB) [place] 924812-12-23 06:11:00 Test Item Value Reference Range Interpretation Comments Iron (test code = Iron) 34 [place] 924812-12-23 06:11:00 Test Item Value Reference Range Interpretation Comments TIBC (test code = TIBC) 383 [place] 924812-12-23 06:11:00 Test Item Value Reference Range Interpretation Comments % Satur Fe (test code = % Satur Fe) 9 [facility]2022-12-23 06:11:00 Test Item Value Reference Range Interpretation Comments Ferritin Lvl (test code = Ferritin Lvl) 10 22-275 [place] 591442-12-23 06:11:00 Test Item Value Reference Range Interpretation Comments Glucose Lvl (test code = Glucose Lvl) 108 70-99 [place] 591442-12-23 06:11:00 Test Item Value Reference Range Interpretation Comments BUN (test code = BUN) 14 7-22 [place] 591442-12-23 06:11:00 Test Item Value Reference Range Interpretation Comments Creatinine Lvl (test code = Creatinine 0.87 0.50-1.40 Lvl) [place] 591442-12-23 06:11:00 Test Item Value Reference Range Interpretation Comments Sodium Lvl (test code = Sodium Lvl) 137 135-145 [place] 591442-12-23 06:11:00 Test Item Value Reference Range Interpretation Comments Potassium Lvl (test code = Potassium 3.8 3.5-5.1 Lvl) [place] 591442-12-23 06:11:00 Test Item Value Reference Range Interpretation Comments Chloride Lvl (test code = Chloride Lvl) 103 95-109 [place] 591442-12-23 06:11:00 Test Item Value Reference Range Interpretation Comments CO2 (test code = CO2) 27 24-32 [place] 591442-12-23 06:11:00 Test Item Value Reference Range Interpretation Comments Calcium Lvl (test code = Calcium Lvl) 9.1 8.5-10.5 [place] 591442-12-23 06:11:00 Test Item Value Reference Range Interpretation Comments AGAP (test code = AGAP) 10.8 10.0-20.0 [place] 591442-12-23 06:11:00 Test Item Value Reference Range Interpretation Comments eGFR (test code = eGFR) 91 [place] 591442-12-23 06:11:00 Test Item Value Reference Range Interpretation Comments Magnesium Lvl (test code = Magnesium 1.8 1.8-2.4 Lvl) [place] 591442-12-23 06:11:00 Test Item Value Reference Range Interpretation Comments Phosphorus (test code = Phosphorus) 3.6 2.5-4.5 [place] 236032-12-23 06:11:00 Test Item Value Reference Range Interpretation Comments Iron (test code = Iron) 34 50-180 [facility]OiijldpATKXCJCZY1961-64-13 06:11:00 Test Item Value Reference Range Interpretation Comments TIBC (test code = TIBC) 383 250-425 [facility]QmqiovrIRKTLVNTL2918-85-89 06:11:00 Test Item Value Reference Range Interpretation Comments % Satur Fe (test code = % Satur Fe) 9 20-48 [facility]IurtpkpCVFZKXVXT9605-74-04 06:11:00 Test Item Value Reference Range Interpretation Comments Ferritin Lvl (test code = Ferritin Lvl) 10 22-275 [facility]ZsxeqxqKSSQZNWZUT5822-63-15 06:11:00 Test Item Value Reference Range Interpretation Comments PT (test code = PT) 14.0 s 12.0-14.7 [facility]RlagpeyXHPCOXTWVE0246-36-59 06:11:00 Test Item Value Reference Range Interpretation Comments INR (test code = INR) 1.08 1 0.85-1.17 [facility]MwgeexfRPCLZXSKXG3186-89-41 06:11:00 Test Item Value Reference Range Interpretation Comments PTT (test code = PTT) 29.7 s 22.9-35.8 [facility] HospitalYkvvmxhHMECKULBOH9721-98-35 06:11:00 Test Item Value Reference Range Interpretation Comments WBC (test code = WBC) 5.6 3.7-10.4 [facility] HospitalKvvzpghNFRLTUJUDC8796-23-51 06:11:00 Test Item Value Reference Range Interpretation Comments RBC (test code = RBC) 3.26 4.70-6.10 [facility] HospitalDzwgpxnNGEOTMDWQA4880-55-62 06:11:00 Test Item Value Reference Range Interpretation Comments Hgb (test code = Hgb) 8.3 14.0-18.0 [place] 701252-12-23 06:11:00 Test Item Value Reference Range Interpretation Comments Hct (test code = Hct) 25.9 42.0-54.0 [place] 701252-12-23 06:11:00 Test Item Value Reference Range Interpretation Comments MCV (test code = MCV) 79.5 80.0-94.0 [place] 701252-12-23 06:11:00 Test Item Value Reference Range Interpretation Comments MCH (test code = MCH) 25.5 pg 27.0-31.0 [place] 701252-12-23 06:11:00 Test Item Value Reference Range Interpretation Comments MCHC (test code = MCHC) 32.1 32.0-36.0 [place] 701252-12-23 06:11:00 Test Item Value Reference Range Interpretation Comments RDW (test code = RDW) 21.9 11.5-14.5 [place] 701252-12-23 06:11:00 Test Item Value Reference Range Interpretation Comments Platelet (test code = Platelet) 143 133-450 [place] 701252-12-23 06:11:00 Test Item Value Reference Range Interpretation Comments MPV (test code = MPV) 9.2 7.4-10.4 [place] [address]-12-23 06:11:00 Test Item Value Reference Range Interpretation Comments Segs (test code = Segs) 54.7 45.0-75.0 [place] 701252-12-23 06:11:00 Test Item Value Reference Range Interpretation Comments Lymphocytes (test code = Lymphocytes) 31.7 20.0-40.0 [place] 701252-12-23 06:11:00 Test Item Value Reference Range Interpretation Comments Monocytes (test code = Monocytes) 8.9 2.0-12.0 [place] [address]-12-23 06:11:00 Test Item Value Reference Range Interpretation Comments Eosinophils (test code = 2.8 See_Comment [A utomated message] The Eosinophils) system which ge nerated this result tra nsmitted reference range : <=4.0. The reference r bret was not used to int erpret this result as normal/abnormal . [place] [address]-12-23 06:11:00 Test Item Value Reference Range Interpretation Comments Basophils (test code = 1.9 See_Comment [Aut omated message] The Basophils) system which ge nerated this result tra nsmitted reference range : <=1.0. The reference r bret was not used to int erpret this result as normal/abnormal . [place] [address]-12-23 06:11:00 Test Item Value Reference Range Interpretation Comments Neutrophils # (test code = Neutrophils 3.0 1.5-8.1 #) [place] 701252-12-23 06:11:00 Test Item Value Reference Range Interpretation Comments Lymphocytes # (test code = Lymphocytes 1.8 1.0-5.5 #) [place] 701252-12-23 06:11:00 Test Item Value Reference Range Interpretation Comments Monocytes # (test code 0.5 See_Comment [Aut omated message] The = Monocytes #) system which generated this result tra nsmitted reference range : <=0.8. The reference r bret was not used to int erpret this result as normal/abnormal . [place] 701252-12-23 06:11:00 Test Item Value Reference Range Interpretation Comments Eosinophils # (test code 0.2 See_Comment [A utomated message] The = Eosinophils #) system whic h generated this result tra nsmitted reference range : <=0.5. The reference r bret was not used to int erpret this result as normal/abnormal . [place] 701252-12-23 06:11:00 Test Item Value Reference Range Interpretation Comments Basophils # (test code 0.1 See_Comment [Aut omated message] The = Basophils #) system which generated this result tra nsmitted reference range : <=0.2. The reference r bret was not used to int erpret this result as normal/abnormal . [facility]rxvtxlZYOTETXNWJ5694-31-35 06:11:00 Test Item Value Reference Range Interpretation Comments Anisocyte (test code = 1+ *ABN*(02/27/22 Anisocyte) 12:11 AM) [facility]2022-12-23 06:11:00 Test Item Value Reference Range Interpretation Comments Ca Ion WB (test code = Ca Ion WB) 1.19 1.05-1.25 [place] 161302-12-23 06:11:00 Test Item Value Reference Range Interpretation Comments Ca Ion at pH 7.4 WB (test code = Ca Ion 1.20 1.05-1.25 at pH 7.4 WB) [facility]2022-12-23 06:11:00 Test Item Value Reference Range Interpretation Comments Iron (test code = Iron) 34 [facility]2022-12-23 06:11:00 Test Item Value Reference Range Interpretation Comments TIBC (test code = TIBC) 383 [place] 924812-12-23 06:11:00 Test Item Value Reference Range Interpretation Comments % Satur Fe (test code = % Satur Fe) 9 [facility]GelacioOHIOHE[facility] H[facility]ITALLHMQP3344-26-95 06:11:00 Test Item Value Reference Range Interpretation Comments Ferritin Lvl (test code = Ferritin Lvl) 10 22-275 [place] 591442-12-23 06:11:00 Test Item Value Reference Range Interpretation Comments Glucose Lvl (test code = Glucose Lvl) 108 70-99 [place] 591442-12-23 06:11:00 Test Item Value Reference Range Interpretation Comments BUN (test code = BUN) 14 7-22 [place] 591442-12-23 06:11:00 Test Item Value Reference Range Interpretation Comments Creatinine Lvl (test code = Creatinine 0.87 0.50-1.40 Lvl) [place] 591442-12-23 06:11:00 Test Item Value Reference Range Interpretation Comments Sodium Lvl (test code = Sodium Lvl) 137 135-145 [place] 591442-12-23 06:11:00 Test Item Value Reference Range Interpretation Comments Potassium Lvl (test code = Potassium 3.8 3.5-5.1 Lvl) [place] 591442-12-23 06:11:00 Test Item Value Reference Range Interpretation Comments Chloride Lvl (test code = Chloride Lvl) 103 95-109 [facility]2022-12-23 06:11:00 Test Item Value Reference Range Interpretation Comments CO2 (test code = CO2) 27 24-32 [place] 591442-12-23 06:11:00 Test Item Value Reference Range Interpretation Comments Calcium Lvl (test code = Calcium Lvl) 9.1 8.5-10.5 [place] 591442-12-23 06:11:00 Test Item Value Reference Range Interpretation Comments AGAP (test code = AGAP) 10.8 10.0-20.0 [place] 591442-12-23 06:11:00 Test Item Value Reference Range Interpretation Comments eGFR (test code = eGFR) 91 [place] 591442-12-23 06:11:00 Test Item Value Reference Range Interpretation Comments Magnesium Lvl (test code = Magnesium 1.8 1.8-2.4 Lvl) [place] 591442-12-23 06:11:00 Test Item Value Reference Range Interpretation Comments Phosphorus (test code = Phosphorus) 3.6 2.5-4.5 [place] 236032-12-23 06:11:00 Test Item Value Reference Range Interpretation Comments Iron (test code = Iron) 34 50-180 [place] 236032-12-23 06:11:00 Test Item Value Reference Range Interpretation Comments TIBC (test code = TIBC) 383 250-425 [place] 236032-12-23 06:11:00 Test Item Value Reference Range Interpretation Comments % Satur Fe (test code = % Satur Fe) 9 20-48 [place] 236032-12-23 06:11:00 Test Item Value Reference Range Interpretation Comments Ferritin Lvl (test code = Ferritin Lvl) 10 22-275 [place] 701252-12-23 06:11:00 Test Item Value Reference Range Interpretation Comments PT (test code = PT) 14.0 s 12.0-14.7 [place] [address]-12-23 06:11:00 Test Item Value Reference Range Interpretation Comments INR (test code = INR) 1.08 1 0.85-1.17 [place] [address]-12-23 06:11:00 Test Item Value Reference Range Interpretation Comments PTT (test code = PTT) 29.7 s 22.9-35.8 [place] [address]-12-23 06:11:00 Test Item Value Reference Range Interpretation Comments WBC (test code = WBC) 5.6 3.7-10.4 [place] [address]-12-23 06:11:00 Test Item Value Reference Range Interpretation Comments RBC (test code = RBC) 3.26 4.70-6.10 [place] [address]-12-23 06:11:00 Test Item Value Reference Range Interpretation Comments Hgb (test code = Hgb) 8.3 14.0-18.0 [place] [address]-12-23 06:11:00 Test Item Value Reference Range Interpretation Comments Hct (test code = Hct) 25.9 42.0-54.0 [place] [address]-12-23 06:11:00 Test Item Value Reference Range Interpretation Comments MCV (test code = MCV) 79.5 80.0-94.0 [place] 701252-12-23 06:11:00 Test Item Value Reference Range Interpretation Comments MCH (test code = MCH) 25.5 pg 27.0-31.0 [place] 701252-12-23 06:11:00 Test Item Value Reference Range Interpretation Comments MCHC (test code = MCHC) 32.1 32.0-36.0 [place] 701252-12-23 06:11:00 Test Item Value Reference Range Interpretation Comments RDW (test code = RDW) 21.9 11.5-14.5 [place] 701252-12-23 06:11:00 Test Item Value Reference Range Interpretation Comments Platelet (test code = Platelet) 143 133-450 [place] 701252-12-23 06:11:00 Test Item Value Reference Range Interpretation Comments MPV (test code = MPV) 9.2 7.4-10.4 [place] 701252-12-23 06:11:00 Test Item Value Reference Range Interpretation Comments Segs (test code = Segs) 54.7 45.0-75.0 [place] 701252-12-23 06:11:00 Test Item Value Reference Range Interpretation Comments Lymphocytes (test code = Lymphocytes) 31.7 20.0-40.0 [place] 701252-12-23 06:11:00 Test Item Value Reference Range Interpretation Comments Monocytes (test code = Monocytes) 8.9 2.0-12.0 [place] 701252-12-23 06:11:00 Test Item Value Reference Range Interpretation Comments Eosinophils (test code = 2.8 See_Comment [A utomated message] The Eosinophils) system which ge nerated this result tra nsmitted reference range : <=4.0. The reference r bret was not used to int erpret this result as normal/abnormal . [place] 701252-12-23 06:11:00 Test Item Value Reference Range Interpretation Comments Basophils (test code = 1.9 See_Comment [Aut omated message] The Basophils) system which ge nerated this result tra nsmitted reference range : <=1.0. The reference r bret was not used to int erpret this result as normal/abnormal . [place] 701252-12-23 06:11:00 Test Item Value Reference Range Interpretation Comments Neutrophils # (test code = Neutrophils 3.0 1.5-8.1 #) [place] 701252-12-23 06:11:00 Test Item Value Reference Range Interpretation Comments Lymphocytes # (test code = Lymphocytes 1.8 1.0-5.5 #) [place] 701252-12-23 06:11:00 Test Item Value Reference Range Interpretation Comments Monocytes # (test code 0.5 See_Comment [Aut omated message] The = Monocytes #) system which generated this result tra nsmitted reference range : <=0.8. The reference r bret was not used to int erpret this result as normal/abnormal . [facility]augIOZPICXRUH0720-71-54 06:11:00 Test Item Value Reference Range Interpretation Comments Eosinophils # (test code 0.2 See_Comment [A utomated message] The = Eosinophils #) system whic h generated this result tra nsmitted reference range : <=0.5. The reference r bret was not used to int erpret this result as normal/abnormal . [facility]UogvtxjDUSRVGKWNE5060-39-57 06:11:00 Test Item Value Reference Range Interpretation Comments Basophils # (test code 0.1 See_Comment [Aut omated message] The = Basophils #) system which generated this result tra nsmitted reference range : <=0.2. The reference r bret was not used to int erpret this result as normal/abnormal . [facility]OynfpoyFCVJYMEDPX8462-68-88 06:11:00 Test Item Value Reference Range Interpretation Comments Anisocyte (test code = 1+ *ABN*(02/27/22 Anisocyte) 12:11 AM) [facility]2022-12-23 06:11:00 Test Item Value Reference Range Interpretation Comments Ca Ion WB (test code = Ca Ion WB) 1.19 1.05-1.25 [place] 161302-12-23 06:11:00 Test Item Value Reference Range Interpretation Comments Ca Ion at pH 7.4 WB (test code = Ca Ion 1.20 1.05-1.25 at pH 7.4 WB) [facility]2022-12-23 06:11:00 Test Item Value Reference Range Interpretation Comments Iron (test code = Iron) 34 [facility]2022-12-23 06:11:00 Test Item Value Reference Range Interpretation Comments TIBC (test code = TIBC) 383 [facility]2022-12-23 06:11:00 Test Item Value Reference Range Interpretation Comments % Satur Fe (test code = % Satur Fe) 9 [facility]2022-12-23 06:11:00 Test Item Value Reference Range Interpretation Comments Ferritin Lvl (test code = Ferritin Lvl) 10 22-275 [facility]2022-12-23 06:11:00 Test Item Value Reference Range Interpretation Comments Glucose Lvl (test code = Glucose Lvl) 108 70-99 [place] 591442-12-23 06:11:00 Test Item Value Reference Range Interpretation Comments BUN (test code = BUN) 14 7-22 [place] [id number] 06:11:00 Test Item Value Reference Range Interpretation Comments Creatinine Lvl (test code = Creatinine 0.87 0.50-1.40 Lvl) [facility]2022-12-23 06:11:00 Test Item Value Reference Range Interpretation Comments Sodium Lvl (test code = Sodium Lvl) 137 135-145 [place] 591442-12-23 06:11:00 Test Item Value Reference Range Interpretation Comments Potassium Lvl (test code = Potassium 3.8 3.5-5.1 Lvl) [facility]2022-12-23 06:11:00 Test Item Value Reference Range Interpretation Comments Chloride Lvl (test code = Chloride Lvl) 103 95-109 [place] 591442-12-23 06:11:00 Test Item Value Reference Range Interpretation Comments CO2 (test code = CO2) 27 24-32 [place] 591442-12-23 06:11:00 Test Item Value Reference Range Interpretation Comments Calcium Lvl (test code = Calcium Lvl) 9.1 8.5-10.5 [facility]2022-12-23 06:11:00 Test Item Value Reference Range Interpretation Comments AGAP (test code = AGAP) 10.8 10.0-20.0 [place] 591442-12-23 06:11:00 Test Item Value Reference Range Interpretation Comments eGFR (test code = eGFR) 91 [facility]2022-12-23 06:11:00 Test Item Value Reference Range Interpretation Comments Magnesium Lvl (test code = Magnesium 1.8 1.8-2.4 Lvl) [place] 591442-12-23 06:11:00 Test Item Value Reference Range Interpretation Comments Phosphorus (test code = Phosphorus) 3.6 2.5-4.5 [place] 236032-12-23 06:11:00 Test Item Value Reference Range Interpretation Comments Iron (test code = Iron) 34 50-180 [place] [address]-12-23 06:11:00 Test Item Value Reference Range Interpretation Comments TIBC (test code = TIBC) 383 250-425 [place] 236032-12-23 06:11:00 Test Item Value Reference Range Interpretation Comments % Satur Fe (test code = % Satur Fe) 9 20-48 [place] 236032-12-23 06:11:00 Test Item Value Reference Range Interpretation Comments Ferritin Lvl (test code = Ferritin Lvl) 10 22-275 [place] 701252-12-23 06:11:00 Test Item Value Reference Range Interpretation Comments PT (test code = PT) 14.0 s 12.0-14.[address]12-23 06:11:00 Test Item Value Reference Range Interpretation Comments INR (test code = INR) 1.08 1 0.85-1.[address]12-23 06:11:00 Test Item Value Reference Range Interpretation Comments PTT (test code = PTT) 29.7 s 22.9-35.[address]12-23 06:11:00 Test Item Value Reference Range Interpretation Comments WBC (test code = WBC) 5.6 3.7-10.4 [place] [address]-12-23 06:11:00 Test Item Value Reference Range Interpretation Comments RBC (test code = RBC) 3.26 4.70-6.10 [place] [address]-12-23 06:11:00 Test Item Value Reference Range Interpretation Comments Hgb (test code = Hgb) 8.3 14.0-18.0 [place] 701252-12-23 06:11:00 Test Item Value Reference Range Interpretation Comments Hct (test code = Hct) 25.9 42.0-54.0 [place] 701252-12-23 06:11:00 Test Item Value Reference Range Interpretation Comments MCV (test code = MCV) 79.5 80.0-94.0 [place] 701252-12-23 06:11:00 Test Item Value Reference Range Interpretation Comments MCH (test code = MCH) 25.5 pg 27.0-31.0 [place] 701252-12-23 06:11:00 Test Item Value Reference Range Interpretation Comments MCHC (test code = MCHC) 32.1 32.0-36.0 [place] 701252-12-23 06:11:00 Test Item Value Reference Range Interpretation Comments RDW (test code = RDW) 21.9 11.5-14.5 [place] 701252-12-23 06:11:00 Test Item Value Reference Range Interpretation Comments Platelet (test code = Platelet) 143 133-450 [place] 701252-12-23 06:11:00 Test Item Value Reference Range Interpretation Comments MPV (test code = MPV) 9.2 7.4-10.4 [place] 701252-12-23 06:11:00 Test Item Value Reference Range Interpretation Comments Segs (test code = Segs) 54.7 45.0-75.0 [place] 701252-12-23 06:11:00 Test Item Value Reference Range Interpretation Comments Lymphocytes (test code = Lymphocytes) 31.7 20.0-40.0 [place] 701252-12-23 06:11:00 Test Item Value Reference Range Interpretation Comments Monocytes (test code = Monocytes) 8.9 2.0-12.0 [place] [address]-12-23 06:11:00 Test Item Value Reference Range Interpretation Comments Eosinophils (test code = 2.8 See_Comment [A utomated message] The Eosinophils) system which ge nerated this result tra nsmitted reference range : <=4.0. The reference r bret was not used to int erpret this result as normal/abnormal . [place] 701252-12-23 06:11:00 Test Item Value Reference Range Interpretation Comments Basophils (test code = 1.9 See_Comment [Aut omated message] The Basophils) system which ge nerated this result tra nsmitted reference range : <=1.0. The reference r bret was not used to int erpret this result as normal/abnormal . [place] [address]-12-23 06:11:00 Test Item Value Reference Range Interpretation Comments Neutrophils # (test code = Neutrophils 3.0 1.5-8.1 #) [place] 701252-12-23 06:11:00 Test Item Value Reference Range Interpretation Comments Lymphocytes # (test code = Lymphocytes 1.8 1.0-5.5 #) [address]12-23 06:11:00 Test Item Value Reference Range Interpretation Comments Monocytes # (test code 0.5 See_Comment [Aut omated message] The = Monocytes #) system which generated this result tra nsmitted reference range : <=0.8. The reference r bret was not used to int erpret this result as normal/abnormal . [place] [address]-12-23 06:11:00 Test Item Value Reference Range Interpretation Comments Eosinophils # (test code 0.2 See_Comment [A utomated message] The = Eosinophils #) system whic h generated this result tra nsmitted reference range : <=0.5. The reference r bret was not used to int erpret this result as normal/abnormal . [place] [address]-12-23 06:11:00 Test Item Value Reference Range Interpretation Comments Basophils # (test code 0.1 See_Comment [Aut omated message] The = Basophils #) system which generated this result tra nsmitted reference range : <=0.2. The reference r bret was not used to int erpret this result as normal/abnormal . [place] [address]-12-23 06:11:00 Test Item Value Reference Range Interpretation Comments Anisocyte (test code = 1+ *ABN*(02/27/22 Anisocyte) 12:11 AM) [place] 161302-12-23 06:11:00 Test Item Value Reference Range Interpretation Comments Ca Ion WB (test code = Ca Ion WB) 1.19 1.05-1.25 [place] 161302-12-23 06:11:00 Test Item Value Reference Range Interpretation Comments Ca Ion at pH 7.4 WB (test code = Ca Ion 1.20 1.05-1.25 at pH 7.4 WB) [place] 924812-12-23 06:11:00 Test Item Value Reference Range Interpretation Comments Iron (test code = Iron) 34 [place] 924812-12-23 06:11:00 Test Item Value Reference Range Interpretation Comments TIBC (test code = TIBC) 383 [place] 924812-12-23 06:11:00 Test Item Value Reference Range Interpretation Comments % Satur Fe (test code = % Satur Fe) 9 [place] 924812-12-23 06:11:00 Test Item Value Reference Range Interpretation Comments Ferritin Lvl (test code = Ferritin Lvl) 10 22-275 [place] 591442-12-23 06:11:00 Test Item Value Reference Range Interpretation Comments Glucose Lvl (test code = Glucose Lvl) 108 70-99 [place] 591442-12-23 06:11:00 Test Item Value Reference Range Interpretation Comments BUN (test code = BUN) 14 7 [place] 591442-12-23 06:11:00 Test Item Value Reference Range Interpretation Comments Creatinine Lvl (test code = Creatinine 0.87 0.50-1.40 Lvl) [place] 591442-12-23 06:11:00 Test Item Value Reference Range Interpretation Comments Sodium Lvl (test code = Sodium Lvl) 137 135-145 [place] 591442-12-23 06:11:00 Test Item Value Reference Range Interpretation Comments Potassium Lvl (test code = Potassium 3.8 3.5-5.1 Lvl) [place] 591442-12-23 06:11:00 Test Item Value Reference Range Interpretation Comments Chloride Lvl (test code = Chloride Lvl) 103 95-109 [place] 591442-12-23 06:11:00 Test Item Value Reference Range Interpretation Comments CO2 (test code = CO2) 27 24-32 [place] 591442-12-23 06:11:00 Test Item Value Reference Range Interpretation Comments Calcium Lvl (test code = Calcium Lvl) 9.1 8.5-10.5 [place] 591442-12-23 06:11:00 Test Item Value Reference Range Interpretation Comments AGAP (test code = AGAP) 10.8 10.0-20.0 [place] 591442-12-23 06:11:00 Test Item Value Reference Range Interpretation Comments eGFR (test code = eGFR) 91 [place] 591442-12-23 06:11:00 Test Item Value Reference Range Interpretation Comments Magnesium Lvl (test code = Magnesium 1.8 1.8-2.4 Lvl) [place] 591442-12-23 06:11:00 Test Item Value Reference Range Interpretation Comments Phosphorus (test code = Phosphorus) 3.6 2.5-4.[address]12-23 06:11:00 Test Item Value Reference Range Interpretation Comments Iron (test code = Iron) 34 50-[address]12-23 06:11:00 Test Item Value Reference Range Interpretation Comments TIBC (test code = TIBC) 383 250-425 [address]12-23 06:11:00 Test Item Value Reference Range Interpretation Comments % Satur Fe (test code = % Satur Fe) 9 20-48 [place] [address]-12-23 06:11:00 Test Item Value Reference Range Interpretation Comments Ferritin Lvl (test code = Ferritin Lvl) 10 22-275 [place] [address]-12-23 06:11:00 Test Item Value Reference Range Interpretation Comments PT (test code = PT) 14.0 s 12.0-14.[address]12-23 06:11:00 Test Item Value Reference Range Interpretation Comments INR (test code = INR) 1.08 1 0.85-1.17 [place] [address]-12-23 06:11:00 Test Item Value Reference Range Interpretation Comments PTT (test code = PTT) 29.7 s 22.9-35.[address]12-23 06:11:00 Test Item Value Reference Range Interpretation Comments WBC (test code = WBC) 5.6 3.7-10.4 [place] [address]-12-23 06:11:00 Test Item Value Reference Range Interpretation Comments RBC (test code = RBC) 3.26 4.70-6.10 [place] 701252-12-23 06:11:00 Test Item Value Reference Range Interpretation Comments Hgb (test code = Hgb) 8.3 14.0-18.0 [place] 701252-12-23 06:11:00 Test Item Value Reference Range Interpretation Comments Hct (test code = Hct) 25.9 42.0-54.0 [place] [address]-12-23 06:11:00 Test Item Value Reference Range Interpretation Comments MCV (test code = MCV) 79.5 80.0-94.0 [place] 701252-12-23 06:11:00 Test Item Value Reference Range Interpretation Comments MCH (test code = MCH) 25.5 pg 27.0-31.0 [place] 701252-12-23 06:11:00 Test Item Value Reference Range Interpretation Comments MCHC (test code = MCHC) 32.1 32.0-36.0 [place] 701252-12-23 06:11:00 Test Item Value Reference Range Interpretation Comments RDW (test code = RDW) 21.9 11.5-14.5 [place] 701252-12-23 06:11:00 Test Item Value Reference Range Interpretation Comments Platelet (test code = Platelet) 143 133-450 [facility] 06:11:00 Test Item Value Reference Range Interpretation Comments MPV (test code = MPV) 9.2 7.4-10.4 [place] [address]-12-23 06:11:00 Test Item Value Reference Range Interpretation Comments Segs (test code = Segs) 54.7 45.0-75.0 [place] 701252-12-23 06:11:00 Test Item Value Reference Range Interpretation Comments Lymphocytes (test code = Lymphocytes) 31.7 20.0-40.0 [place] [address]-12-23 06:11:00 Test Item Value Reference Range Interpretation Comments Monocytes (test code = Monocytes) 8.9 2.0-12.0 [place] 701252-12-23 06:11:00 Test Item Value Reference Range Interpretation Comments Eosinophils (test code = 2.8 See_Comment [A utomated message] The Eosinophils) system which ge nerated this result tra nsmitted reference range : <=4.0. The reference r bret was not used to int erpret this result as normal/abnormal . [id number] 06:11:00 Test Item Value Reference Range Interpretation Comments Basophils (test code = 1.9 See_Comment [Aut omated message] The Basophils) system which ge nerated this result tra nsmitted reference range : <=1.0. The reference r bret was not used to int erpret this result as normal/abnormal . [place] 701252-12-23 06:11:00 Test Item Value Reference Range Interpretation Comments Neutrophils # (test code = Neutrophils 3.0 1.5-8.1 #) [facility]le[facility]YSS[facility]OKY1701-28-58 06:11:00 Test Item Value Reference Range Interpretation Comments Lymphocytes # (test code = Lymphocytes 1.8 1.0-5.5 #) [facility]tyobelGVAYJQDTKV6151-21-54 06:11:00 Test Item Value Reference Range Interpretation Comments Monocytes # (test code 0.5 See_Comment [Aut omated message] The = Monocytes #) system which generated this result tra nsmitted reference range : <=0.8. The reference r bret was not used to int erpret this result as normal/abnormal . [facility]AotvwfpTXROAYUVBI5575-68-71 06:11:00 Test Item Value Reference Range Interpretation Comments Eosinophils # (test code 0.2 See_Comment [A utomated message] The = Eosinophils #) system whic h generated this result tra nsmitted reference range : <=0.5. The reference r bret was not used to int erpret this result as normal/abnormal . [facility] HospitalLnhetcbAWDVOTDBPV9920-61-12 06:11:00 Test Item Value Reference Range Interpretation Comments Basophils # (test code 0.1 See_Comment [Aut omated message] The = Basophils #) system which generated this result tra nsmitted reference range : <=0.2. The reference r bret was not used to int erpret this result as normal/abnormal . [id number] 06:11:00 Test Item Value Reference Range Interpretation Comments Anisocyte (test code = 1+ *ABN*(02/27/22 Anisocyte) 12:11 AM) [facility]2022-12-23 06:11:00 Test Item Value Reference Range Interpretation Comments Ca Ion WB (test code = Ca Ion WB) 1.19 1.05-1.25 [facility] [id number] 06:11:00 Test Item Value Reference Range Interpretation Comments Ca Ion at pH 7.4 WB (test code = Ca Ion 1.20 1.05-1.25 at pH 7.4 WB) [facility] [id number] 02:42:00 Test Item Value Reference Range Interpretation Comments UA Color (test code = Yellow *NA*(02/26/22 UA Color) 8:42 PM) [facility] [id number] 02:42:00 Test Item Value Reference Range Interpretation Comments UA Turbidity (test code = Clear (02/26/22 8:42 UA Turbidity) PM) [facility] [id number] 02:42:00 Test Item Value Reference Range Interpretation Comments UA Spec Grav (test code = UA Spec 1.010 1 Grav) [facility] [id number] 02:42:00 Test Item Value Reference Range Interpretation Comments UA pH (test code = UA pH) 6.5 1 5.0-8.0 [facility] [id number] 02:42:00 Test Item Value Reference Range Interpretation Comments UA Protein (test code = UA Negative mg/dL Protein) [facility] [id number] 02:42:00 Test Item Value Reference Range Interpretation Comments UA Glucose (test code = UA Negative mg/dL Glucose) [facility] [id number] 02:42:00 Test Item Value Reference Range Interpretation Comments UA Ketones (test code = UA Negative mg/dL Ketones) [facility] [id number] 02:42:00 Test Item Value Reference Range Interpretation Comments UA Bili (test code = Negative *NA*(02/26/22 UA Bili) 8:42 PM) [facility] [id number] 02:42:00 Test Item Value Reference Range Interpretation Comments UA Blood (test code = Negative (02/26/22 8:42 UA Blood) PM) [facility] [id number] 02:42:00 Test Item Value Reference Range Interpretation Comments UA Urobilinogen (test code = UA 0.2 0.1-1.0 Urobilinogen) [facility] [id number] 02:42:00 Test Item Value Reference Range Interpretation Comments UA Nitrite (test code Negative (02/26/22 8:42 = UA Nitrite) PM) [facility] [id number] 02:42:00 Test Item Value Reference Range Interpretation Comments UA Leuk Est (test Negative (02/26/22 8:42 code = UA Leuk Est) PM) [facility] [id number] 02:42:00 Test Item Value Reference Range Interpretation Comments UA WBC (test code = 1 See_Comment [Automa jw message] The UA WBC) system which ge nerated this result transmit jw reference range : <=5. The reference range was not used to interpr et this result as mateo l/abnormal. [facility] [id number] 02:42:00 Test Item Value Reference Range Interpretation Comments UA RBC (test code = no gt See_Comment [Automa jw message] The UA RBC) system which ge nerated this result transmit jw reference range : <=2. The reference range was not used to interpr et this result as mateo l/abnormal. [facility] [id number] 02:42:00 Test Item Value Reference Range Interpretation Comments UA Bacteria (test code = UA Occasional /HPF Bacteria) [facility] [id number] 02:42:00 Test Item Value Reference Range Interpretation Comments UA Mucus (test code = UA Mucus) Few /LPF [facility] [id number] 02:42:00 Test Item Value Reference Range Interpretation Comments UA Sq Epi (test code = None Seen (02/26/22 UA Sq Epi) 8:42 PM) [facility] [id number] 02:42:00 Test Item Value Reference Range Interpretation Comments UA Color (test code = Yellow *NA*(02/26/22 UA Color) 8:42 PM) [facility] [id number] 02:42:00 Test Item Value Reference Range Interpretation Comments UA Turbidity (test code = Clear (02/26/22 8:42 UA Turbidity) PM) [facility] [id number] 02:42:00 Test Item Value Reference Range Interpretation Comments UA Spec Grav (test code = UA Spec 1.010 1 Grav) [facility] AND [id number] 02:42:00 Test Item Value Reference Range Interpretation Comments UA pH (test code = UA pH) 6.5 1 5.0-8.0 [facility] AND [id number] 02:42:00 Test Item Value Reference Range Interpretation Comments UA Protein (test code = UA Negative mg/dL Protein) [facility] AND [id number] 02:42:00 Test Item Value Reference Range Interpretation Comments UA Glucose (test code = UA Negative mg/dL Glucose) [facility] AND [id number] 02:42:00 Test Item Value Reference Range Interpretation Comments UA Ketones (test code = UA Negative mg/dL Ketones) [facility] AND [id number] 02:42:00 Test Item Value Reference Range Interpretation Comments UA Bili (test code = Negative *NA*(02/26/22 UA Bili) 8:42 PM) [facility] AND [id number] 02:42:00 Test Item Value Reference Range Interpretation Comments UA Blood (test code = Negative (02/26/22 8:42 UA Blood) PM) [facility] AND [id number] 02:42:00 Test Item Value Reference Range Interpretation Comments UA Urobilinogen (test code = UA 0.2 0.1-1.0 Urobilinogen) [facility] AND [id number] 02:42:00 Test Item Value Reference Range Interpretation Comments UA Nitrite (test code Negative (02/26/22 8:42 = UA Nitrite) PM) [facility] AND [id number] 02:42:00 Test Item Value Reference Range Interpretation Comments UA Leuk Est (test Negative (02/26/22 8:42 code = UA Leuk Est) PM) [facility] AND [id number] 02:42:00 Test Item Value Reference Range Interpretation Comments UA WBC (test code = 1 See_Comment [Automa jw message] The UA WBC) system which ge nerated this result transmit jw reference range : <=5. The reference range was not used to interpr et this result as mateo l/abnormal. [facility] AND [id number] 02:42:00 Test Item Value Reference Range Interpretation Comments UA RBC (test code = no gt See_Comment [Automa jw message] The UA RBC) system which ge nerated this result transmit jw reference range : <=2. The reference range was not used to interpr et this result as mateo l/abnormal. [facility] [id number] 02:42:00 Test Item Value Reference Range Interpretation Comments UA Bacteria (test code = UA Occasional /HPF Bacteria) [facility] [id number] 02:42:00 Test Item Value Reference Range Interpretation Comments UA Mucus (test code = UA Mucus) Few /LPF [facility] [id number] 02:42:00 Test Item Value Reference Range Interpretation Comments UA Sq Epi (test code = None Seen (02/26/22 UA Sq Epi) 8:42 PM) [facility] [id number] 02:42:00 Test Item Value Reference Range Interpretation Comments UA Color (test code = Yellow *NA*(02/26/22 UA Color) 8:42 PM) [facility] [id number] 02:42:00 Test Item Value Reference Range Interpretation Comments UA Turbidity (test code = Clear (02/26/22 8:42 UA Turbidity) PM) [facility] [id number] 02:42:00 Test Item Value Reference Range Interpretation Comments UA Spec Grav (test code = UA Spec 1.010 1 Grav) [facility] AND [id number] 02:42:00 Test Item Value Reference Range Interpretation Comments UA pH (test code = UA pH) 6.5 1 5.0-8.0 [facility] [id number] 02:42:00 Test Item Value Reference Range Interpretation Comments UA Protein (test code = UA Negative mg/dL Protein) [facility] [id number] 02:42:00 Test Item Value Reference Range Interpretation Comments UA Glucose (test code = UA Negative mg/dL Glucose) [facility] [id number] 02:42:00 Test Item Value Reference Range Interpretation Comments UA Ketones (test code = UA Negative mg/dL Ketones) [facility] [id number] 02:42:00 Test Item Value Reference Range Interpretation Comments UA Bili (test code = Negative *NA*(02/26/22 UA Bili) 8:42 PM) [facility] [id number] 02:42:00 Test Item Value Reference Range Interpretation Comments UA Blood (test code = Negative (02/26/22 8:42 UA Blood) PM) [facility] [id number] 02:42:00 Test Item Value Reference Range Interpretation Comments UA Urobilinogen (test code = UA 0.2 0.1-1.0 Urobilinogen) [facility] [id number] 02:42:00 Test Item Value Reference Range Interpretation Comments UA Nitrite (test code Negative (02/26/22 8:42 = UA Nitrite) PM) [facility] [id number] 02:42:00 Test Item Value Reference Range Interpretation Comments UA Leuk Est (test Negative (02/26/22 8:42 code = UA Leuk Est) PM) [facility] [id number] 02:42:00 Test Item Value Reference Range Interpretation Comments UA WBC (test code = 1 See_Comment [Automa jw message] The UA WBC) system which ge nerated this result transmit jw reference range : <=5. The reference range was not used to interpr et this result as mateo l/abnormal. [facility] [id number] 02:42:00 Test Item Value Reference Range Interpretation Comments UA RBC (test code = no gt See_Comment [Automa jw message] The UA RBC) system which ge nerated this result transmit jw reference range : <=2. The reference range was not used to interpr et this result as mateo l/abnormal. [facility] [id number] 02:42:00 Test Item Value Reference Range Interpretation Comments UA Bacteria (test code = UA Occasional /HPF Bacteria) [facility] [id number] 02:42:00 Test Item Value Reference Range Interpretation Comments UA Mucus (test code = UA Mucus) Few /LPF [facility] [id number] 02:42:00 Test Item Value Reference Range Interpretation Comments UA Sq Epi (test code = None Seen (02/26/22 UA Sq Epi) 8:42 PM) [facility] [id number] 02:42:00 Test Item Value Reference Range Interpretation Comments UA Color (test code = Yellow *NA*(02/26/22 UA Color) 8:42 PM) [facility] AND [id number] 02:42:00 Test Item Value Reference Range Interpretation Comments UA Turbidity (test code = Clear (02/26/22 8:42 UA Turbidity) PM) [facility] AND [id number] 02:42:00 Test Item Value Reference Range Interpretation Comments UA Spec Grav (test code = UA Spec 1.010 1 Grav) [facility] AND [id number] 02:42:00 Test Item Value Reference Range Interpretation Comments UA pH (test code = UA pH) 6.5 1 5.0-8.0 [facility] AND [id number] 02:42:00 Test Item Value Reference Range Interpretation Comments UA Protein (test code = UA Negative mg/dL Protein) [facility] [facility] [id number] 02:42:00 Test Item Value Reference Range Interpretation Comments UA Glucose (test code = UA Negative mg/dL Glucose) [facility] AND [id number] 02:42:00 Test Item Value Reference Range Interpretation Comments UA Ketones (test code = UA Negative mg/dL Ketones) [facility] AND [id number] 02:42:00 Test Item Value Reference Range Interpretation Comments UA Bili (test code = Negative *NA*(02/26/22 UA Bili) 8:42 PM) [facility] AND [id number] 02:42:00 Test Item Value Reference Range Interpretation Comments UA Blood (test code = Negative (02/26/22 8:42 UA Blood) PM) [facility] AND [id number] 02:42:00 Test Item Value Reference Range Interpretation Comments UA Urobilinogen (test code = UA 0.2 0.1-1.0 Urobilinogen) [facility] AND [id number] 02:42:00 Test Item Value Reference Range Interpretation Comments UA Nitrite (test code Negative (02/26/22 8:42 = UA Nitrite) PM) [facility] AND [id number] 02:42:00 Test Item Value Reference Range Interpretation Comments UA Leuk Est (test Negative (02/26/22 8:42 code = [facility]A Leuk Est) PM) [facility] [id number] 02:42:00 Test Item Value Reference Range Interpretation Comments UA WBC (test code = 1 See_Comment [Automa jw message] The UA WBC) system which ge nerated this result transmit jw reference range : <=5. The reference range was not used to interpr et this result as mateo l/abnormal. [facility] [id number] 02:42:00 Test Item Value Reference Range Interpretation Comments UA RBC (test code = no gt See_Comment [Automa jw message] The UA RBC) system which ge nerated this result transmit jw reference range : <=2. The reference range was not used to interpr et this result as mateo l/abnormal. [facility] [id number] 02:42:00 Test Item Value Reference Range Interpretation Comments UA Bacteria (test code = UA Occasional /HPF Bacteria) [facility] [id number] 02:42:00 Test Item Value Reference Range Interpretation Comments UA Mucus (test code = UA Mucus) Few /LPF [facility] [id number] 02:42:00 Test Item Value Reference Range Interpretation Comments UA Sq Epi (test code = None Seen (02/26/22 UA Sq Epi) 8:42 PM) [facility] [id number] 02:42:00 Test Item Value Reference Range Interpretation Comments UA Color (test code = Yellow *NA*(02/26/22 UA Color) 8:42 PM) [facility] [id number] 02:42:00 Test Item Value Reference Range Interpretation Comments UA Turbidity (test code = Clear (02/26/22 8:42 UA Turbidity) PM) [facility] [id number] 02:42:00 Test Item Value Reference Range Interpretation Comments UA Spec Grav (test code = UA Spec 1.010 1 Grav) [facility] [id number] 02:42:00 Test Item Value Reference Range Interpretation Comments UA pH (test code = UA pH) 6.5 1 5.0-8.0 [facility] [id number] 02:42:00 Test Item Value Reference Range Interpretation Comments UA Protein (test code = UA Negative mg/dL Protein) [facility] [id number] 02:42:00 Test Item Value Reference Range Interpretation Comments UA Glucose (test code = UA Negative mg/dL Glucose) [facility] [id number] 02:42:00 Test Item Value Reference Range Interpretation Comments UA Ketones (test code = UA Negative mg/dL Ketones) [facility] [id number] 02:42:00 Test Item Value Reference Range Interpretation Comments UA Bili (test code = Negative *NA*(02/26/22 UA Bili) 8:42 PM) [facility] [id number] 02:42:00 Test Item Value Reference Range Interpretation Comments UA Blood (test code = Negative (02/26/22 8:42 UA Blood) PM) [facility] [id number] 02:42:00 Test Item Value Reference Range Interpretation Comments UA Urobilinogen (test code = UA 0.2 0.1-1.0 Urobilinogen) [facility] [id number] 02:42:00 Test Item Value Reference Range Interpretation Comments UA Nitrite (test code Negative (02/26/22 8:42 = UA Nitrite) PM) [facility] [id number] 02:42:00 Test Item Value Reference Range Interpretation Comments UA Leuk Est (test Negative (02/26/22 8:42 code = UA Leuk Est) PM) [facility] AND [id number] 02:42:00 Test Item Value Reference Range Interpretation Comments UA WBC (test code = 1 See_Comment [Automa jw message] The UA WBC) system which ge nerated this result transmit jw reference range : <=5. The reference range was not used to interpr et this result as mateo l/abnormal. [facility] [id number] 02:42:00 Test Item Value Reference Range Interpretation Comments UA RBC (test code = no gt See_Comment [Automa jw message] The UA RBC) system which ge nerated this result transmit jw reference range : <=2. The reference range was not used to interpr et this result as mateo l/abnormal. [facility] [id number] 02:42:00 Test Item Value Reference Range Interpretation Comments UA Bacteria (test code = UA Occasional /HPF Bacteria) [facility] [id number] 02:42:00 Test Item Value Reference Range Interpretation Comments UA Mucus (test code = UA Mucus) Few /LPF [facility] [id number] 02:42:00 Test Item Value Reference Range Interpretation Comments UA Sq Epi (test code = None Seen (02/26/22 UA Sq Epi) 8:42 PM) [facility] [id number] 02:32:00 Test Item Value Reference Range Interpretation Comments HS Troponin I (test code = HS Troponin 21 I) [facility] [id number] 02:32:00 Test Item Value Reference Range Interpretation Comments HS Troponin I (test code = HS Troponin 21 I) [facility] [id number] 02:32:00 Test Item Value Reference Range Interpretation Comments HS Troponin I (test code = HS Troponin 21 I) [facility] [id number] 02:32:00 Test Item Value Reference Range Interpretation Comments HS Troponin I (test code = HS Troponin 21 I) [facility] [id number] 02:32:00 Test Item Value Reference Range Interpretation Comments HS Troponin I (test code = HS Troponin 21 I) [facility] - [id number] 00:25:00 Test Item Value Reference Range Interpretation Comments MRSA by PCR (test Negative (02/26/22 6:25 code = MRSA by PCR) PM) [facility] AntonioGmfwscrWPJOPHIJYX0102-05-81 00:25:00 Test Item Value Reference Range Interpretation Comments Coronavirus (COVID-19) Not Detected PAULA (test code = (02/26/22 6:25 PM) Coronavirus (COVID-19) PAULA) [facility] - [id number] 00:25:00 Test Item Value Reference Range Interpretation Comments MRSA by PCR (test Negative (02/26/22 6:25 code = MRSA by PCR) PM) [facility] [id number] 00:25:00 Test Item Value Reference Range Interpretation Comments Coronavirus (COVID-19) Not Detected PAULA (test code = (02/26/22 6:25 PM) Coronavirus (COVID-19) PAULA) [facility] - [id number] 00:25:00 Test Item Value Reference Range Interpretation Comments MRSA by PCR (test Negative (02/26/22 6:25 code = MRSA by PCR) PM) [id number] 00:25:00 Test Item Value Reference Range Interpretation Comments Coronavirus (COVID-19) Not Detected PAULA (test code = (02/26/22 6:25 PM) Coronavirus (COVID-19) PAULA) [facility] - [id number] 00:25:00 Test Item Value Reference Range Interpretation Comments MRSA by PCR (test Negative (02/26/22 6:25 code = MRSA by PCR) PM) [facility] CentralSiraucpLHNRIGJYHH5515-83-13 00:25:00 Test Item Value Reference Range Interpretation Comments Coronavirus (COVID-19) Not Detected PAULA (test code = (02/26/22 6:25 PM) Coronavirus (COVID-19) PAULA) [facility] - [id number] 00:25:00 Test Item Value Reference Range Interpretation Comments MRSA by PCR (test Negative (02/26/22 6:25 code = MRSA by PCR) PM) [facility]HKZMYRMVHF8828-10-75 00:25:00 Test Item Value Reference Range Interpretation Comments Coronavirus (COVID-19) Not Detected PAULA (test code = (02/26/22 6:25 PM) Coronavirus (COVID-19) PAULA) [facility]ItergtpLTJHPDVLU4529-14-82 00:23:00 Test Item Value Reference Range Interpretation Comments Total Protein (test code = Total 6.8 6.4-8.4 Protein) [facility]IfvlzgaFMMBRVXAO8529-26-50 00:23:00 Test Item Value Reference Range Interpretation Comments Albumin Lvl (test code = Albumin Lvl) 3.1 3.5-5.0 [facility] ArlingtonDarbqpsCIWFVYBKK3071-54-05 00:23:00 Test Item Value Reference Range Interpretation Comments ALT (test code = ALT) 15 See_Comment [Auto mated message] The system which ge nerated this result transmit jw reference range : <=65. The reference range was not used to interpr et this result as mateo l/abnormal. [facility] ArlingtonFgsdtlbDRETWBUUP8054-65-49 00:23:00 Test Item Value Reference Range Interpretation Comments AST (test code = AST) 14 See_Comment [Auto mated message] The system which ge nerated this result transmit jw reference range : <=37. The reference range was not used to interpr et this result as mateo l/abnormal. [facility] ArlingtonRldposuNSMUJDZQL0219-87-52 00:23:00 Test Item Value Reference Range Interpretation Comments Alk Phos (test code = Alk Phos) 102 39-136 [facility] ArlingtonFwcmcnmBENBIGLRU2734-29-48 00:23:00 Test Item Value Reference Range Interpretation Comments Bili Total (test code = Bili Total) 0.2 0.2-1.3 [facility] ArlingtonZvcnuflPJPVNTUHC8187-52-71 00:23:00 Test Item Value Reference Range Interpretation Comments Globulin (test code = Globulin) 3.7 2.7-4.2 [facility] ArlingtonVjrktjfHWEIJZKKH5653-60-13 00:23:00 Test Item Value Reference Range Interpretation Comments A/G Ratio (test code = A/G Ratio) 0.8 1 0.7-1.6 [facility] ArlingtonCclyljzDRFSWIHBQ4288-55-41 00:23:00 Test Item Value Reference Range Interpretation Comments B/C Ratio (test code = B/C Ratio) 16 1 6-25 [facility] ArlingtonQqcbyufRORNMEBOP8763-70-37 00:23:00 Test Item Value Reference Range Interpretation Comments Hgb A1C (test code = Hgb A1C) 5.8 [facility] ArlingtonMtvmtkhLWPIGRJGB7721-26-20 00:23:00 Test Item Value Reference Range Interpretation Comments Lactic Acid Lvl (test code = Lactic 1.2 0.5-2.2 Acid Lvl) [facility] ArlingtonGzjwjjmFRPRQKUQT5449-08-60 00:23:00 Test Item Value Reference Range Interpretation Comments Trig (test code = Trig) 84 [facility] ArlingtonAeajorwHLUVQUBEH9528-66-35 00:23:00 Test Item Value Reference Range Interpretation Comments Chol (test code = Chol) 131 [facility] ArlingtonAxxwskjPGICLBLSO3572-30-42 00:23:00 Test Item Value Reference Range Interpretation Comments HDL (test code = HDL) 32 [facility] ArlingtonXxzjdqzYEPUVHRIC2479-21-39 00:23:00 Test Item Value Reference Range Interpretation Comments Chol/HDL Ratio (test code = Chol/HDL 4.09 1 4.00-7.30 Ratio) [facility] ArlingtonFbewqhtEVAQVMYUZ8061-98-66 00:23:00 Test Item Value Reference Range Interpretation Comments LDL (Calculated) (test code = LDL 82 (Calculated)) [place] 236032-12-23 00:23:00 Test Item Value Reference Range Interpretation Comments VLDL (test code = VLDL) 17 1 [place] 236032-12-23 00:23:00 Test Item Value Reference Range Interpretation Comments HS Troponin I Baseline (test code = HS 18 Troponin I Baseline) [place] 236032-12-23 00:23:00 Test Item Value Reference Range Interpretation Comments TSH (test code = TSH) 1.330 0.360-3.740 [place] 701252-12-23 00:23:00 Test Item Value Reference Range Interpretation Comments WBC (test code = WBC) 6.9 3.7-10.4 [place] 701252-12-23 00:23:00 Test Item Value Reference Range Interpretation Comments RBC (test code = RBC) 3.41 4.70-6.10 [place] 701252-12-23 00:23:00 Test Item Value Reference Range Interpretation Comments Hgb (test code = Hgb) 8.7 14.0-18.0 [place] 701252-12-23 00:23:00 Test Item Value Reference Range Interpretation Comments Hct (test code = Hct) 27.2 42.0-54.0 [place] 701252-12-23 00:23:00 Test Item Value Reference Range Interpretation Comments MCV (test code = MCV) 79.7 80.0-94.0 [place] 701252-12-23 00:23:00 Test Item Value Reference Range Interpretation Comments MCH (test code = MCH) 25.6 pg 27.0-31.0 [place] 701252-12-23 00:23:00 Test Item Value Reference Range Interpretation Comments MCHC (test code = MCHC) 32.1 32.0-36.0 [place] 701252-12-23 00:23:00 Test Item Value Reference Range Interpretation Comments RDW (test code = RDW) 21.8 11.5-14.5 [place] 701252-12-23 00:23:00 Test Item Value Reference Range Interpretation Comments Platelet (test code = Platelet) 144 133-450 [place] [address]-12-23 00:23:00 Test Item Value Reference Range Interpretation Comments MPV (test code = MPV) 8.9 7.4-10.4 [place] 701252-12-23 00:23:00 Test Item Value Reference Range Interpretation Comments D-Dimer (test code = D-Dimer) 0.60 [place] [address]-12-23 00:23:00 Test Item Value Reference Range Interpretation Comments PT (test code = PT) 13.6 s 12.0-14.7 [place] [address]-12-23 00:23:00 Test Item Value Reference Range Interpretation Comments INR (test code = INR) 1.04 1 0.85-1.17 [place] [address]-12-23 00:23:00 Test Item Value Reference Range Interpretation Comments Fibrinogen Lvl (test code = Fibrinogen 393 230-510 Lvl) [place] 701252-12-23 00:23:00 Test Item Value Reference Range Interpretation Comments PTT (test code = PTT) 28.3 s 22.9-35.8 [place] [address]-12-23 00:23:00 Test Item Value Reference Range Interpretation Comments Thrombin Time (test code = Thrombin 16.2 s 15.0-21.2 Time) [place] 701252-12-23 00:23:00 Test Item Value Reference Range Interpretation Comments Segs (test code = Segs) 58.3 45.0-75.0 [place] 701252-12-23 00:23:00 Test Item Value Reference Range Interpretation Comments Lymphocytes (test code = Lymphocytes) 28.8 20.0-40.0 [place] 701252-12-23 00:23:00 Test Item Value Reference Range Interpretation Comments Monocytes (test code = Monocytes) 9.0 2.0-12.0 [place] [address]-12-23 00:23:00 Test Item Value Reference Range Interpretation Comments Eosinophils (test code = 2.3 See_Comment [A utomated message] The Eosinophils) system which ge nerated this result tra nsmitted reference range : <=4.0. The reference r bret was not used to int erpret this result as normal/abnormal . [place] 701252-12-23 00:23:00 Test Item Value Reference Range Interpretation Comments Basophils (test code = 1.6 See_Comment [Aut omated message] The Basophils) system which ge nerated this result tra nsmitted reference range : <=1.0. The reference r bret was not used to int erpret this result as normal/abnormal . [facility]HHMT6090[facility]71 [facility]:23:00 Test Item Value Reference Range Interpretation Comments Neutrophils # (test code = Neutrophils 4.0 1.5-8.1 #) [facility]gexioiNOQKCNTTOW2542-43-32 00:23:00 Test Item Value Reference Range Interpretation Comments Lymphocytes # (test code = Lymphocytes 2.0 1.0-5.5 #) [facility]TlrjghhIWGERYKMNT7651-29-87 00:23:00 Test Item Value Reference Range Interpretation Comments Monocytes # (test code 0.6 See_Comment [Aut omated message] The = Monocytes #) system which generated this result tra nsmitted reference range : <=0.8. The reference r bret was not used to int erpret this result as normal/abnormal . [facility] HospitalHnwnfhmHXHJUBWQPH4993-43-25 00:23:00 Test Item Value Reference Range Interpretation Comments Eosinophils # (test code 0.2 See_Comment [A utomated message] The = Eosinophils #) system whic h generated this result tra nsmitted reference range : <=0.5. The reference r bret was not used to int erpret this result as normal/abnormal . [facility] HospitalUtxdmlaMOXOPCXSBU8643-25-74 00:23:00 Test Item Value Reference Range Interpretation Comments Basophils # (test code 0.1 See_Comment [Aut omated message] The = Basophils #) system which generated this result tra nsmitted reference range : <=0.2. The reference r bret was not used to int erpret this result as normal/abnormal . [facility] HospitalSpqjbnoBKNDEHDORM3263-68-18 00:23:00 Test Item Value Reference Range Interpretation Comments Anisocyte (test code = 1+ *ABN*(02/26/22 Anisocyte) 6:23 PM) [place] 549322-12-23 00:23:00 Test Item Value Reference Range Interpretation Comments Trig (test code = Trig) 84 [place] 549322-12-23 00:23:00 Test Item Value Reference Range Interpretation Comments Chol (test code = Chol) 131 [facility] AntonioUmvagzlDZMMXJ4927-41-11 00:23:00 Test Item Value Reference Range Interpretation Comments HDL (test code = HDL) 32 [facility] AntonioFucrennFLXNPT2201-24-92 00:23:00 Test Item Value Reference Range Interpretation Comments Chol/HDL Ratio (test code = Chol/HDL 4.09 1 4.00-7.30 Ratio) [facility] OipyhqqQKXVDM5600-94-88 00:23:00 Test Item Value Reference Range Interpretation Comments LDL (Calculated) (test code = LDL 82 (Calculated)) [facility] AntonioAoocgoxZZZSOA4809-80-73 00:23:00 Test Item Value Reference Range Interpretation Comments VLDL (test code = VLDL) 17 1 [facility] AntonioHycretePARATHYROID [id number] 00:23:00 Test Item Value Reference Range Interpretation Comments Ca Ion WB (test code = Ca Ion WB) 1.22 1.05-1.25 [facility] [employer] [id number] 00:23:00 Test Item Value Reference Range Interpretation Comments Ca Ion at pH 7.4 WB (test code = Ca Ion 1.17 1.05-1.25 at pH 7.4 WB) [facility] AntonioComplete Network TechnologyIAL MUQLJYWNT5484-34-98 00:23:00 Test Item Value Reference Range Interpretation Comments Hgb A1C (test code = Hgb A1C) 5.8 [facility] [employer] [id number] 00:23:00 Test Item Value Reference Range Interpretation Comments ABO/Rh (test code = ABO/Rh) O POS [facility] [employer] [id number] 00:23:00 Test Item Value Reference Range Interpretation Comments Antibody Scrn (test Negative (02/26/22 code = Antibody Scrn) 6:23 PM) [facility] AntonioHycreteCARIntegra TelecomAC [id number] 00:23:00 Test Item Value Reference Range Interpretation Comments BNP (test code = BNP) 56 [facility] [employer] [id number] 00:23:00 Test Item Value Reference Range Interpretation Comments HS Troponin I Baseline (test code = HS 18 Troponin I Baseline) [employer] [id number] 00:23:00 Test Item Value Reference Range Interpretation Comments Total Protein (test code = Total 6.8 6.4-8.4 Protein) [employer] [id number] 00:23:00 Test Item Value Reference Range Interpretation Comments Albumin Lvl (test code = Albumin Lvl) 3.1 3.5-5.0 [facility] AntonioZymeworks [id number] 00:23:00 Test Item Value Reference Range Interpretation Comments ALT (test code = ALT) 15 See_Comment [Auto mated message] The system which ge nerated this result transmit jw reference range : <=65. The reference range was not used to interpr et this result as mateo l/abnormal. [facility] AntonioZymew[facility] [id number] 00:23:00 Test Item Value Reference Range Interpretation Comments AST (test code = AST) 14 See_Comment [Auto mated message] The system which ge nerated this result transmit jw reference range : <=37. The reference range was not used to interpr et this result as mateo l/abnormal. [facility] AntonioZymeworks [id number] 00:23:00 Test Item Value Reference Range Interpretation Comments Alk Phos (test code = Alk Phos) 102 39-136 [facility] AntonioZymew[facility] [id number] 00:23:00 Test Item Value Reference Range Interpretation Comments Bili Total (test code = Bili Total) 0.2 0.2-1.3 [facility] AntonioZymew[facility] [id number] 00:23:00 Test Item Value Reference Range Interpretation Comments Globulin (test code = Globulin) 3.7 2.7-4.2 [facility] AntonioZymeworks [id number] 00:23:00 Test Item Value Reference Range Interpretation Comments A/G Ratio (test code = A/G Ratio) 0.8 1 0.7-1.6 [facility] [employer] [id number] 00:23:00 Test Item Value Reference Range Interpretation Comments Glucose Lvl (test code = Glucose Lvl) 98 70-99 [facility] [employer] [id number] 00:23:00 Test Item Value Reference Range Interpretation Comments BUN (test code = BUN) 15 7-22 [facility] AntonioZymew[facility] [id number] 00:23:00 Test Item Value Reference Range Interpretation Comments Creatinine Lvl (test code = Creatinine 0.92 0.50-1.40 Lvl) [facility] AntonioZymeworks [id number] 00:23:00 Test Item Value Reference Range Interpretation Comments Sodium Lvl (test code = Sodium Lvl) 136 135-145 [place] 591442-12-23 00:23:00 Test Item Value Reference Range Interpretation Comments Potassium Lvl (test code = Potassium 4.0 3.5-5.1 Lvl) [place] 591442-12-23 00:23:00 Test Item Value Reference Range Interpretation Comments Chloride Lvl (test code = Chloride Lvl) 101 95-109 [place] 591442-12-23 00:23:00 Test Item Value Reference Range Interpretation Comments CO2 (test code = CO2) 30 24-32 [place] 591442-12-23 00:23:00 Test Item Value Reference Range Interpretation Comments Calcium Lvl (test code = Calcium Lvl) 8.8 8.5-10.5 [place] 591442-12-23 00:23:00 Test Item Value Reference Range Interpretation Comments AGAP (test code = AGAP) 9.0 10.0-20.0 [place] 591442-12-23 00:23:00 Test Item Value Reference Range Interpretation Comments B/C Ratio (test code = B/C Ratio) 16 1 6-25 [place] 591442-12-23 00:23:00 Test Item Value Reference Range Interpretation Comments eGFR (test code = eGFR) 88 [place] 591442-12-23 00:23:00 Test Item Value Reference Range Interpretation Comments Lactic Acid Lvl (test code = Lactic 1.2 0.5-2.2 Acid Lvl) [place] 591442-12-23 00:23:00 Test Item Value Reference Range Interpretation Comments Magnesium Lvl (test code = Magnesium 1.8 1.8-2.4 Lvl) [place] 591442-12-23 00:23:00 Test Item Value Reference Range Interpretation Comments Phosphorus (test code = Phosphorus) 3.3 2.5-4.5 [place] 236032-12-23 00:23:00 Test Item Value Reference Range Interpretation Comments BNP (test code = BNP) 56 [place] 236032-12-23 00:23:00 Test Item Value Reference Range Interpretation Comments Total Protein (test code = Total 6.8 6.4-8.4 Protein) [place] 236032-12-23 00:23:00 Test Item Value Reference Range Interpretation Comments Albumin Lvl (test code = Albumin Lvl) 3.1 3.5-5.0 [facility] AntonioTyrmaguRSSZINOUL5361-99-13 00:23:00 Test Item Value Reference Range Interpretation Comments ALT (test code = ALT) 15 See_Comment [Auto mated message] The system which ge nerated this result transmit jw reference range : <=65. The reference range was not used to interpr et this result as mateo l/abnormal. [facility] LrjvwobNOWAMVNXA9431-85-82 00:23:00 Test Item Value Reference Range Interpretation Comments AST (test code = AST) 14 See_Comment [Auto mated message] The system which ge nerated this result transmit jw reference range : <=37. The reference range was not used to interpr et this result as mateo l/abnormal. [facility] PmfjwzcVUNWFOCAB1704-58-47 00:23:00 Test Item Value Reference Range Interpretation Comments Alk Phos (test code = Alk Phos) 102 39-136 [facility] AntonioNufdiliLZLJHYMMG9678-20-39 00:23:00 Test Item Value Reference Range Interpretation Comments Bili Total (test code = Bili Total) 0.2 0.2-1.3 [facility] ElsvmshXJCUXVLBC8108-27-59 00:23:00 Test Item Value Reference Range Interpretation Comments Globulin (test code = Globulin) 3.7 2.7-4.2 [facility] TncngbxLEZFFWCEA5141-49-68 00:23:00 Test Item Value Reference Range Interpretation Comments A/G Ratio (test code = A/G Ratio) 0.8 1 0.7-1.6 [facility] AntonioWsolsamUOBRIAPYS9146-30-21 00:23:00 Test Item Value Reference Range Interpretation Comments B/C Ratio (test code = B/C Ratio) 16 1 6-25 [facility] JaomohfHGBSYITNH6334-75-20 00:23:00 Test Item Value Reference Range Interpretation Comments Hgb A1C (test code = Hgb A1C) 5.8 [facility] AntonioRkvulvvXLTOFVGSM5741-00-96 00:23:00 Test Item Value Reference Range Interpretation Comments Lactic Acid Lvl (test code = Lactic 1.2 0.5-2.2 Acid Lvl) [facility] AntonioOtqkvpgPYZERBZPJ4963-64-78 00:23:00 Test Item Value Reference Range Interpretation Comments Trig (test code = Trig) 84 [facility] ArlingtonRdmzodaFXLZTGKMH4142-87-63 00:23:00 Test Item Value Reference Range Interpretation Comments Chol (test code = Chol) 131 [facility] ArlingtonJorjrffPQCEFXMPV7652-30-31 00:23:00 Test Item Value Reference Range Interpretation Comments HDL (test code = HDL) 32 [facility] ArlingtonOfdsxmjZOXFUKSDS7345-18-96 00:23:00 Test Item Value Reference Range Interpretation Comments Chol/HDL Ratio (test code = Chol/HDL 4.09 1 4.00-7.30 Ratio) [facility] ArlingtonZtygspuTVIZIJQKN1372-40-95 00:23:00 Test Item Value Reference Range Interpretation Comments LDL (Calculated) (test code = LDL 82 (Calculated)) [facility] ArlingtonDlimzrqSQTJOBWHH3676-43-38 00:23:00 Test Item Value Reference Range Interpretation Comments VLDL (test code = VLDL) 17 1 [place] 236032-12-23 00:23:00 Test Item Value Reference Range Interpretation Comments HS Troponin I Baseline (test code = HS 18 Troponin I Baseline) [facility] ArlingtonThralukKEKMSAYGX6560-13-39 00:23:00 Test Item Value Reference Range Interpretation Comments TSH (test code = TSH) 1.330 0.360-3.740 [place] 701252-12-23 00:23:00 Test Item Value Reference Range Interpretation Comments WBC (test code = WBC) 6.9 3.7-10.4 [place] 701252-12-23 00:23:00 Test Item Value Reference Range Interpretation Comments RBC (test code = RBC) 3.41 4.70-6.10 [place] 701252-12-23 00:23:00 Test Item Value Reference Range Interpretation Comments Hgb (test code = Hgb) 8.7 14.0-18.0 [place] 701252-12-23 00:23:00 Test Item Value Reference Range Interpretation Comments Hct (test code = Hct) 27.2 42.0-54.0 [place] 701252-12-23 00:23:00 Test Item Value Reference Range Interpretation Comments MCV (test code = MCV) 79.7 80.0-94.0 [place] 701252-12-23 00:23:00 Test Item Value Reference Range Interpretation Comments MCH (test code = MCH) 25.6 pg 27.0-31.0 [place] 701252-12-23 00:23:00 Test Item Value Reference Range Interpretation Comments MCHC (test code = MCHC) 32.1 32.0-36.0 [facility]KRNAIGEE2407-[facility] 00:23:00 Test Item Value Reference Range Interpretation Comments RDW (test code = RDW) 21.8 11.5-14.5 [place] 701252-12-23 00:23:00 Test Item Value Reference Range Interpretation Comments Platelet (test code = Platelet) 144 133-450 [place] 701252-12-23 00:23:00 Test Item Value Reference Range Interpretation Comments MPV (test code = MPV) 8.9 7.4-10.4 [place] 701252-12-23 00:23:00 Test Item Value Reference Range Interpretation Comments D-Dimer (test code = D-Dimer) 0.60 [place] 701252-12-23 00:23:00 Test Item Value Reference Range Interpretation Comments PT (test code = PT) 13.6 s 12.0-14.7 [place] 701252-12-23 00:23:00 Test Item Value Reference Range Interpretation Comments INR (test code = INR) 1.04 1 0.85-1.17 [place] 701252-12-23 00:23:00 Test Item Value Reference Range Interpretation Comments Fibrinogen Lvl (test code = Fibrinogen 393 230-510 Lvl) [facility]FvbrcuzXJDUUYHZFB4898-11-27 00:23:00 Test Item Value Reference Range Interpretation Comments PTT (test code = PTT) 28.3 s 22.9-35.8 [place] 701252-12-23 00:23:00 Test Item Value Reference Range Interpretation Comments Thrombin Time (test code = Thrombin 16.2 s 15.0-21.2 Time) [facility] HospitalDxjndnqYDIOMBUEHK9050-03-27 00:23:00 Test Item Value Reference Range Interpretation Comments Segs (test code = Segs) 58.3 45.0-75.0 [place] 701252-12-23 00:23:00 Test Item Value Reference Range Interpretation Comments Lymphocytes (test code = Lymphocytes) 28.8 20.0-40.0 [place] 701252-12-23 00:23:00 Test Item Value Reference Range Interpretation Comments Monocytes (test code = Monocytes) 9.0 2.0-12.0 [place] 701252-12-23 00:23:00 Test Item Value Reference Range Interpretation Comments Eosinophils (test code = 2.3 See_Comment [A utomated message] The Eosinophils) system which ge nerated this result tra nsmitted reference range : <=4.0. The reference r bret was not used to int erpret this result as normal/abnormal . [place] 701252-12-23 00:23:00 Test Item Value Reference Range Interpretation Comments Basophils (test code = 1.6 See_Comment [Aut omated message] The Basophils) system which ge nerated this result tra nsmitted reference range : <=1.0. The reference r bret was not used to int erpret this result as normal/abnormal . [place] 701252-12-23 00:23:00 Test Item Value Reference Range Interpretation Comments Neutrophils # (test code = Neutrophils 4.0 1.5-8.1 #) [place] 701252-12-23 00:23:00 Test Item Value Reference Range Interpretation Comments Lymphocytes # (test code = Lymphocytes 2.0 1.0-5.5 #) [place] 701252-12-23 00:23:00 Test Item Value Reference Range Interpretation Comments Monocytes # (test code 0.6 See_Comment [Aut omated message] The = Monocytes #) system which generated this result tra nsmitted reference range : <=0.8. The reference r bret was not used to int erpret this result as normal/abnormal . [place] 701252-12-23 00:23:00 Test Item Value Reference Range Interpretation Comments Eosinophils # (test code 0.2 See_Comment [A utomated message] The = Eosinophils #) system whic h generated this result tra nsmitted reference range : <=0.5. The reference r bret was not used to int erpret this result as normal/abnormal . [place] 701252-12-23 00:23:00 Test Item Value Reference Range Interpretation Comments Basophils # (test code 0.1 See_Comment [Aut omated message] The = Basophils #) system which generated this result tra nsmitted reference range : <=0.2. The reference r bret was not used to int erpret this result as normal/abnormal . [facility] CentralAeydlfeUBTRDCFCDU8804-38-37 00:23:00 Test Item Value Reference Range Interpretation Comments Anisocyte (test code = 1+ *ABN*(02/26/22 Anisocyte) 6:23 PM) [facility] CentralHndszedYONWHJ9955-59-30 00:23:00 Test Item Value Reference Range Interpretation Comments Trig (test code = Trig) 84 [facility] CentralLfqabyuXEVJMV6843-71-72 00:23:00 Test Item Value Reference Range Interpretation Comments Chol (test code = Chol) 131 [facility] CentralDxguypnWWNKVV4467-47-75 00:23:00 Test Item Value Reference Range Interpretation Comments HDL (test code = HDL) 32 [facility] CentralBvhhtjvQBCCPS4438-19-06 00:23:00 Test Item Value Reference Range Interpretation Comments Chol/HDL Ratio (test code = Chol/HDL 4.09 1 4.00-7.30 Ratio) [facility] AntonioJgigigqURWZHV8793-29-75 00:23:00 Test Item Value Reference Range Interpretation Comments LDL (Calculated) (test code = LDL 82 (Calculated)) [facility] CentralRkmtbwoXUSVBD4233-62-20 00:23:00 Test Item Value Reference Range Interpretation Comments VLDL (test code = VLDL) 17 1 [facility] AntonioHycretePARATHYROID XEPOMTI7007-93-59 00:23:00 Test Item Value Reference Range Interpretation Comments Ca Ion WB (test code = Ca Ion WB) 1.22 1.05-1.25 [facility] CentralPARATHYROID SNWFKOE1282-43-78 00:23:00 Test Item Value Reference Range Interpretation Comments Ca Ion at pH 7.4 WB (test code = Ca Ion 1.17 1.05-1.25 at pH 7.4 WB) [facility] CentralAsmacure LtéeIAL JFXWXTYRY7729-70-52 00:23:00 Test Item Value Reference Range Interpretation Comments Hgb A1C (test code = Hgb A1C) 5.8 [facility] AntonioForwardMetrics PIURIMN2555-81-92 00:23:00 Test Item Value Reference Range Interpretation Comments ABO/Rh (test code = ABO/Rh) O POS [facility] [employer] WVAFNRZ4872-87-19 00:23:00 Test Item Value Reference Range Interpretation Comments Antibody Scrn (test Negative (12/22/22 code = Antibody Scrn) 6:23 PM) [facility] [employer] FZOTWMH1504-85-34 00:23:00 Test Item Value Reference Range Interpretation Comments BNP (test code = BNP) 56 [facility] [employer] SAVGBYA7929-73-44 00:23:00 Test Item Value Reference Range Interpretation Comments HS Troponin I Baseline (test code = HS 18 Troponin I Baseline) [facility] [employer] FKAGC8301-43-60 00:23:00 Test Item Value Reference Range Interpretation Comments Total Protein (test code = Total 6.8 6.4-8.4 Protein) [facility] [employer] XGIBO0127-18-51 00:23:00 Test Item Value Reference Range Interpretation Comments Albumin Lvl (test code = Albumin Lvl) 3.1 3.5-5.0 [facility] [employer] SZGPY6305-63-62 00:23:00 Test Item Value Reference Range Interpretation Comments ALT (test code = ALT) 15 See_Comment [Auto mated message] The system which ge nerated this result transmit wj reference range : <=65. The reference range was not used to interpr et this result as mateo l/abnormal. [facility] [employer] HHDMJ7708-06-02 00:23:00 Test Item Value Reference Range Interpretation Comments AST (test code = AST) 14 See_Comment [Auto mated message] The system which ge nerated this result transmit jw reference range : <=37. The reference range was not used to interpr et this result as mateo l/abnormal. [facility] [employer]2022-12-23 00:23:00 Test Item Value Reference Range Interpretation Comments Alk Phos (test code = Alk Phos) 102 39-136 [facility] [employer] NWKAJ0305-16-10 00:23:00 Test Item Value Reference Range Interpretation Comments Bili Total (test code = Bili Total) 0.2 0.2-1.3 [facility] [employer] Int[employer]2-12-23 00:23:00 Test Item Value Reference Range Interpretation Comments Globulin (test code = Globulin) 3.7 2.7-4.2 [facility] [employer] [id number] 00:23:00 Test Item Value Reference Range Interpretation Comments A/G Ratio (test code = A/G Ratio) 0.8 1 0.7-1.6 [facility] [employer] Intake2-12-23 00:23:00 Test Item Value Reference Range Interpretation Comments Glucose Lvl (test code = Glucose Lvl) 98 70-99 [place] 591442-12-23 00:23:00 Test Item Value Reference Range Interpretation Comments BUN (test code = BUN) 15 7-22 [place] 591442-12-23 00:23:00 Test Item Value Reference Range Interpretation Comments Creatinine Lvl (test code = Creatinine 0.92 0.50-1.40 Lvl) [place] 591442-12-23 00:23:00 Test Item Value Reference Range Interpretation Comments Sodium Lvl (test code = Sodium Lvl) 136 135-145 [place] 591442-12-23 00:23:00 Test Item Value Reference Range Interpretation Comments Potassium Lvl (test code = Potassium 4.0 3.5-5.1 Lvl) [place] 591442-12-23 00:23:00 Test Item Value Reference Range Interpretation Comments Chloride Lvl (test code = Chloride Lvl) 101 95-109 [place] 591442-12-23 00:23:00 Test Item Value Reference Range Interpretation Comments CO2 (test code = CO2) 30 24-32 [place] 591442-12-23 00:23:00 Test Item Value Reference Range Interpretation Comments Calcium Lvl (test code = Calcium Lvl) 8.8 8.5-10.5 [place] 591442-12-23 00:23:00 Test Item Value Reference Range Interpretation Comments AGAP (test code = AGAP) 9.0 10.0-20.0 [place] 591442-12-23 00:23:00 Test Item Value Reference Range Interpretation Comments B/C Ratio (test code = B/C Ratio) 16 1 6-25 [place] 591442-12-23 00:23:00 Test Item Value Reference Range Interpretation Comments eGFR (test code = eGFR) 88 [place] 591442-12-23 00:23:00 Test Item Value Reference Range Interpretation Comments Lactic Acid Lvl (test code = Lactic 1.2 0.5-2.2 Acid Lvl) [place] 591442-12-23 00:23:00 Test Item Value Reference Range Interpretation Comments Magnesium Lvl (test code = Magnesium 1.8 1.8-2.4 Lvl) [facility]2022-12-23 00:23:00 Test Item Value Reference Range Interpretation Comments Phosphorus (test code = Phosphorus) 3.3 2.5-4.5 [facility] ArlingtonSikgyawRZFDWJDPU9874-05-76 00:23:00 Test Item Value Reference Range Interpretation Comments BNP (test code = BNP) 56 [facility] ArlingtonQdbzzipBONNEXVBX9027-23-81 00:23:00 Test Item Value Reference Range Interpretation Comments Total Protein (test code = Total 6.8 6.4-8.4 Protein) [facility] ArlingtonEzprkhaOQJISOSCA8578-60-28 00:23:00 Test Item Value Reference Range Interpretation Comments Albumin Lvl (test code = Albumin Lvl) 3.1 3.5-5.0 [facility] ArlingtonLhcvsneTVTEMRJZO3366-57-38 00:23:00 Test Item Value Reference Range Interpretation Comments ALT (test code = ALT) 15 See_Comment [Auto mated message] The system which ge nerated this result transmit jw reference range : <=65. The reference range was not used to interpr et this result as mateo l/abnormal. [facility] ArlingtonSzbcpxlMGNCFQEPL6146-59-97 00:23:00 Test Item Value Reference Range Interpretation Comments AST (test code = AST) 14 See_Comment [Auto mated message] The system which ge nerated this result transmit jw reference range : <=37. The reference range was not used to interpr et this result as mateo l/abnormal. [facility] ArlingtonEienzrxCQBMZZDXH6514-93-38 00:23:00 Test Item Value Reference Range Interpretation Comments Alk Phos (test code = Alk Phos) 102 39-136 [facility] ArlingtonGcytwgmYDBCSWVOB1132-28-69 00:23:00 Test Item Value Reference Range Interpretation Comments Bili Total (test code = Bili Total) 0.2 0.2-1.3 [place] 236032-12-23 00:23:00 Test Item Value Reference Range Interpretation Comments Globulin (test code = Globulin) 3.7 2.7-4.2 [facility] ArlingtonKofkccoSTFDGZJJY3741-40-57 00:23:00 Test Item Value Reference Range Interpretation Comments A/G Ratio (test code = A/G Ratio) 0.8 1 0.7-1.6 [place] 236032-12-23 00:23:00 Test Item Value Reference Range Interpretation Comments B/C Ratio (test code = B/C Ratio) 16 1 6-25 [place] 236032-12-23 00:23:00 Test Item Value Reference Range Interpretation Comments Hgb A1C (test code = Hgb A1C) 5.8 [place] 236032-12-23 00:23:00 Test Item Value Reference Range Interpretation Comments Lactic Acid Lvl (test code = Lactic 1.2 0.5-2.2 Acid Lvl) [place] 236032-12-23 00:23:00 Test Item Value Reference Range Interpretation Comments Trig (test code = Trig) 84 [place] 236032-12-23 00:23:00 Test Item Value Reference Range Interpretation Comments Chol (test code = Chol) 131 [place] 236032-12-23 00:23:00 Test Item Value Reference Range Interpretation Comments HDL (test code = HDL) 32 [place] 236032-12-23 00:23:00 Test Item Value Reference Range Interpretation Comments Chol/HDL Ratio (test code = Chol/HDL 4.09 1 4.00-7.30 Ratio) [place] 236032-12-23 00:23:00 Test Item Value Reference Range Interpretation Comments LDL (Calculated) (test code = LDL 82 (Calculated)) [place] 236032-12-23 00:23:00 Test Item Value Reference Range Interpretation Comments VLDL (test code = VLDL) 17 1 [place] 236032-12-23 00:23:00 Test Item Value Reference Range Interpretation Comments HS Troponin I Baseline (test code = HS 18 Troponin I Baseline) [place] 236032-12-23 00:23:00 Test Item Value Reference Range Interpretation Comments TSH (test code = TSH) 1.330 0.360-3.740 [place] 701252-12-23 00:23:00 Test Item Value Reference Range Interpretation Comments WBC (test code = WBC) 6.9 3.7-10.4 [place] 701252-12-23 00:23:00 Test Item Value Reference Range Interpretation Comments RBC (test code = RBC) 3.41 4.70-6.10 [place] 701252-12-23 00:23:00 Test Item Value Reference Range Interpretation Comments Hgb (test code = Hgb) 8.7 14.0-18.0 [facility] HospitalUvqjunjZAWQDWWYBH7641-54-12 00:23:00 Test Item Value Reference Range Interpretation Comments Hct (test code = Hct) 27.2 42.0-54.0 [facility] HospitalXcfvibhSLDSXXXXGS5274-53-65 00:23:00 Test Item Value Reference Range Interpretation Comments MCV (test code = MCV) 79.7 80.0-94.0 [facility] HospitalBpcutqwQGWMZPHQBV3533-26-74 00:23:00 Test Item Value Reference Range Interpretation Comments MCH (test code = MCH) 25.6 pg 27.0-31.0 [facility] HospitalYczmdzzLJUOEPBCKP6127-03-47 00:23:00 Test Item Value Reference Range Interpretation Comments MCHC (test code = MCHC) 32.1 32.0-36.0 [facility] HospitalVneerkaWPVWXRWSGM1649-31-86 00:23:00 Test Item Value Reference Range Interpretation Comments RDW (test code = RDW) 21.8 11.5-14.5 [facility] HospitalPatofpbOAFITSFUHE4815-84-14 00:23:00 Test Item Value Reference Range Interpretation Comments Platelet (test code = Platelet) 144 133-450 [facility] HospitalGplmpsuXVTTDJFDXC6290-26-05 00:23:00 Test Item Value Reference Range Interpretation Comments MPV (test code = MPV) 8.9 7.4-10.4 [facility] HospitalNzwsjauYBAUWMBKJV4282-45-12 00:23:00 Test Item Value Reference Range Interpretation Comments D-Dimer (test code = D-Dimer) 0.60 [facility] HospitalQvslggoKRKQAUMGCS6139-50-86 00:23:00 Test Item Value Reference Range Interpretation Comments PT (test code = PT) 13.6 s 12.0-14.7 [place] 701252-12-23 00:23:00 Test Item Value Reference Range Interpretation Comments INR (test code = INR) 1.04 1 0.85-1.17 [place] 701252-12-23 00:23:00 Test Item Value Reference Range Interpretation Comments Fibrinogen Lvl (test code = Fibrinogen 393 230-510 Lvl) [facility] HospitalQgckrkrCFULFNNANI8948-57-75 00:23:00 Test Item Value Reference Range Interpretation Comments PTT (test code = PTT) 28.3 s 22.9-35.8 [place] 701252-12-23 00:23:00 Test Item Value Reference Range Interpretation Comments Thrombin Time (test code = Thrombin 16.2 s 15.0-21.2 Time) [facility] HospitalLqlvelsLUVPPAGENV5352-60-38 00:23:00 Test Item Value Reference Range Interpretation Comments Segs (test code = Segs) 58.3 45.0-75.0 [facility] HospitalXtxoqdjRAVMFOMHCS4748-55-40 00:23:00 Test Item Value Reference Range Interpretation Comments Lymphocytes (test code = Lymphocytes) 28.8 20.0-40.0 [facility] HospitalFywgblaLNDXTDGZWP1106-84-37 00:23:00 Test Item Value Reference Range Interpretation Comments Monocytes (test code = Monocytes) 9.0 2.0-12.0 [facility] HospitalPqvuqtqGOAXNHBNGB7262-74-51 00:23:00 Test Item Value Reference Range Interpretation Comments Eosinophils (test code = 2.3 See_Comment [A utomated message] The Eosinophils) system which ge nerated this result tra nsmitted reference range : <=4.0. The reference r bret was not used to int erpret this result as normal/abnormal . [facility] HospitalThztfmyGOIPJWDGWX4866-61-84 00:23:00 Test Item Value Reference Range Interpretation Comments Basophils (test code = 1.6 See_Comment [Aut omated message] The Basophils) system which ge nerated this result tra nsmitted reference range : <=1.0. The reference r bret was not used to int erpret this result as normal/abnormal . [facility] HospitalPpmohlgTEEBNLEJFJ0594-28-19 00:23:00 Test Item Value Reference Range Interpretation Comments Neutrophils # (test code = Neutrophils 4.0 1.5-8.1 #) [facility] HospitalKltmpjpOALNVZPSFC9760-18-37 00:23:00 Test Item Value Reference Range Interpretation Comments Lymphocytes # (test code = Lymphocytes 2.0 1.0-5.5 #) [place] 701252-12-23 00:23:00 Test Item Value Reference Range Interpretation Comments Monocytes # (test code 0.6 See_Comment [Aut omated message] The = Monocytes #) system which generated this result tra nsmitted reference range : <=0.8. The reference r bret was not used to int erpret this result as normal/abnormal . [place] 701252-12-23 00:23:00 Test Item Value Reference Range Interpretation Comments Eosinophils # (test code 0.2 See_Comment [A utomated message] The = Eosinophils #) system whic h generated this result tra nsmitted reference range : <=0.5. The reference r bret was not used to int erpret this result as normal/abnormal . [facility] HospitalWzlypmoHPOZHCSTNK0189-10-83 00:23:00 Test Item Value Reference Range Interpretation Comments Basophils # (test code 0.1 See_Comment [Aut omated message] The = Basophils #) system which generated this result tra nsmitted reference range : <=0.2. The reference r bret was not used to int erpret this result as normal/abnormal . [facility] HospitalPywljyoEWECQMYTHN5000-91-42 00:23:00 Test Item Value Reference Range Interpretation Comments Anisocyte (test code = 1+ *ABN*(02/26/22 Anisocyte) 6:23 PM) [facility]etculhQFQEYE3029-40-91 00:23:00 Test Item Value Reference Range Interpretation Comments Trig (test code = Trig) 84 [facility] HospitalMtpcyypVKOSXT2898-46-51 00:23:00 Test Item Value Reference Range Interpretation Comments Chol (test code = Chol) 131 [facility] HospitalNtugntrTBNSWD2541-92-84 00:23:00 Test Item Value Reference Range Interpretation Comments HDL (test code = HDL) 32 [facility] HospitalXuosmmeEQNAFR9535-14-31 00:23:00 Test Item Value Reference Range Interpretation Comments Chol/HDL Ratio (test code = Chol/HDL 4.09 1 4.00-7.30 Ratio) [facility] HospitalMsszmrfNBTGZQ1469-46-48 00:23:00 Test Item Value Reference Range Interpretation Comments LDL (Calculated) (test code = LDL 82 (Calculated)) [place] 549322-12-23 00:23:00 Test Item Value Reference Range Interpretation Comments VLDL (test code = VLDL) 17 1 [facility] AntonioannPARATHYROID FYVHSBI3175-17-23 00:23:00 Test Item Value Reference Range Interpretation Comments Ca Ion WB (test code = Ca Ion WB) 1.22 1.05-1.25 [facility]PAR[facility] QVIVZJE8233-00-68 00:23:00 Test Item Value Reference Range Interpretation Comments Ca Ion at pH 7.4 WB (test code = Ca Ion 1.17 1.05-1.25 at pH 7.4 WB) [facility] [employer] DVRXNOEXG7260-56-74 00:23:00 Test Item Value Reference Range Interpretation Comments Hgb A1C (test code = Hgb A1C) 5.8 [facility] [employer] TJHJLMK9125-45-74 00:23:00 Test Item Value Reference Range Interpretation Comments ABO/Rh (test code = ABO/Rh) O POS [facility] [employer] ECDCZAK5329-38-58 00:23:00 Test Item Value Reference Range Interpretation Comments Antibody Scrn (test Negative (02/26/22 code = Antibody Scrn) 6:23 PM) [facility] [employer] KOMTHLM7157-02-15 00:23:00 Test Item Value Reference Range Interpretation Comments BNP (test code = BNP) 56 [facility] [employer] PFCBQGJ6391-11-21 00:23:00 Test Item Value Reference Range Interpretation Comments HS Troponin I Baseline (test code = HS 18 Troponin I Baseline) [employer] NHNCR1566-66-72 00:23:00 Test Item Value Reference Range Interpretation Comments Total Protein (test code = Total 6.8 6.4-8.4 Protein) [facility] [employer]2022-12-23 00:23:00 Test Item Value Reference Range Interpretation Comments Albumin Lvl (test code = Albumin Lvl) 3.1 3.5-5.0 [facility] [employer]2022-12-23 00:23:00 Test Item Value Reference Range Interpretation Comments ALT (test code = ALT) 15 See_Comment [Auto mated message] The system which ge nerated this result transmit jw reference range : <=65. The reference range was not used to interpr et this result as mateo l/abnormal. [employer] [id number] 00:23:00 Test Item Value Reference Range Interpretation Comments AST (test code = AST) 14 See_Comment [Auto mated message] The system which ge nerated this result transmit jw reference range : <=37. The reference range was not used to interpr et this result as mateo l/abnormal. [employer]2022-12-23 00:23:00 Test Item Value Reference Range Interpretation Comments Alk Phos (test code = Alk Phos) 102 39-136 [facility] [employer]2022-12-23 00:23:00 Test Item Value Reference Range Interpretation Comments Bili Total (test code = Bili Total) 0.2 0.2-1.3 [place] 591442-12-23 00:23:00 Test Item Value Reference Range Interpretation Comments Globulin (test code = Globulin) 3.7 2.7-4.2 [place] 591442-12-23 00:23:00 Test Item Value Reference Range Interpretation Comments A/G Ratio (test code = A/G Ratio) 0.8 1 0.7-1.6 [place] 591442-12-23 00:23:00 Test Item Value Reference Range Interpretation Comments Glucose Lvl (test code = Glucose Lvl) 98 70-99 [place] 591442-12-23 00:23:00 Test Item Value Reference Range Interpretation Comments BUN (test code = BUN) 15 -22 [place] 591442-12-23 00:23:00 Test Item Value Reference Range Interpretation Comments Creatinine Lvl (test code = Creatinine 0.92 0.50-1.40 Lvl) [place] 591442-12-23 00:23:00 Test Item Value Reference Range Interpretation Comments Sodium Lvl (test code = Sodium Lvl) 136 135-145 [place] 591442-12-23 00:23:00 Test Item Value Reference Range Interpretation Comments Potassium Lvl (test code = Potassium 4.0 3.5-5.1 Lvl) [place] 591442-12-23 00:23:00 Test Item Value Reference Range Interpretation Comments Chloride Lvl (test code = Chloride Lvl) 101 95-109 [place] 591442-12-23 00:23:00 Test Item Value Reference Range Interpretation Comments CO2 (test code = CO2) 30 24-32 [place] 591442-12-23 00:23:00 Test Item Value Reference Range Interpretation Comments Calcium Lvl (test code = Calcium Lvl) 8.8 8.5-10.5 [place] 591442-12-23 00:23:00 Test Item Value Reference Range Interpretation Comments AGAP (test code = AGAP) 9.0 10.0-20.0 [place] 591442-12-23 00:23:00 Test Item Value Reference Range Interpretation Comments B/C Ratio (test code = B/C Ratio) 16 1 6-25 [place] 591442-12-23 00:23:00 Test Item Value Reference Range Interpretation Comments eGFR (test code = eGFR) 88 [place] 591442-12-23 00:23:00 Test Item Value Reference Range Interpretation Comments Lactic Acid Lvl (test code = Lactic 1.2 0.5-2.2 Acid Lvl) [place] 591442-12-23 00:23:00 Test Item Value Reference Range Interpretation Comments Magnesium Lvl (test code = Magnesium 1.8 1.8-2.4 Lvl) [place] 591442-12-23 00:23:00 Test Item Value Reference Range Interpretation Comments Phosphorus (test code = Phosphorus) 3.3 2.5-4.5 [place] [address]-12-23 00:23:00 Test Item Value Reference Range Interpretation Comments BNP (test code = BNP) 56 [place] 236032-12-23 00:23:00 Test Item Value Reference Range Interpretation Comments Total Protein (test code = Total 6.8 6.4-8.4 Protein) [place] 236032-12-23 00:23:00 Test Item Value Reference Range Interpretation Comments Albumin Lvl (test code = Albumin Lvl) 3.1 3.5-5.0 [place] [address]-12-23 00:23:00 Test Item Value Reference Range Interpretation Comments ALT (test code = ALT) 15 See_Comment [Auto mated message] The system which ge nerated this result transmit jw reference range : <=65. The reference range was not used to interpr et this result as mateo l/abnormal. [place] 236032-12-23 00:23:00 Test Item Value Reference Range Interpretation Comments AST (test code = AST) 14 See_Comment [Auto mated message] The system which ge nerated this result transmit jw reference range : <=37. The reference range was not used to interpr et this result as mateo l/abnormal. [place] [address]-12-23 00:23:00 Test Item Value Reference Range Interpretation Comments Alk Phos (test code = Alk Phos) 102 39-136 [place] 236032-12-23 00:23:00 Test Item Value Reference Range Interpretation Comments Bili Total (test code = Bili Total) 0.2 0.2-1.3 [facility]amtefnKBZQRZSYC4229-91-27 00:23:00 Test Item Value Reference Range Interpretation Comments Globulin (test code = Globulin) 3.7 2.7-4.2 [facility] ArlingtonMvqkyiyQBCPPRQGO8286-99-34 00:23:00 Test Item Value Reference Range Interpretation Comments A/G Ratio (test code = A/G Ratio) 0.8 1 0.7-1.6 [facility] ArlingtonPleggkpVVZDBSJSS1304-62-79 00:23:00 Test Item Value Reference Range Interpretation Comments B/C Ratio (test code = B/C Ratio) 16 1 6-25 [facility] ArlingtonKfqiwylTNYAOVQKO1468-03-95 00:23:00 Test Item Value Reference Range Interpretation Comments Hgb A1C (test code = Hgb A1C) 5.8 [facility] ArlingtonEroixmrAAJLIKKVG3050-48-13 00:23:00 Test Item Value Reference Range Interpretation Comments Lactic Acid Lvl (test code = Lactic 1.2 0.5-2.2 Acid Lvl) [facility] ArlingtonSianchuTAKKUAGQJ7146-69-55 00:23:00 Test Item Value Reference Range Interpretation Comments Trig (test code = Trig) 84 [facility] ArlingtonEakjnwtYWVQEIRKF1879-82-74 00:23:00 Test Item Value Reference Range Interpretation Comments Chol (test code = Chol) 131 [facility] ArlingtonRwikvdyRRDGOKCOO2608-01-05 00:23:00 Test Item Value Reference Range Interpretation Comments HDL (test code = HDL) 32 [facility] ArlingtonLlqekczJCHKECLHW9667-76-16 00:23:00 Test Item Value Reference Range Interpretation Comments Chol/HDL Ratio (test code = Chol/HDL 4.09 1 4.00-7.30 Ratio) [facility] ArlingtonRldnslkRKIXKTIZV0470-70-60 00:23:00 Test Item Value Reference Range Interpretation Comments LDL (Calculated) (test code = LDL 82 (Calculated)) [facility] ArlingtonFrxvhchVCKNZHWCS0246-26-39 00:23:00 Test Item Value Reference Range Interpretation Comments VLDL (test code = VLDL) 17 1 [facility] ArlingtonSsetskfKQKKZGVQR1114-23-40 00:23:00 Test Item Value Reference Range Interpretation Comments HS Troponin I Baseline (test code = HS 18 Troponin I Baseline) [facility] ArlingtonLpdftchSRGDPKMEW1049-09-43 00:23:00 Test Item Value Reference Range Interpretation Comments TSH (test code = TSH) 1.330 0.360-3.740 [facility]ztpOCEMLOXXFZ8926-79-43 00:23:00 Test Item Value Reference Range Interpretation Comments WBC (test code = WBC) 6.9 3.7-10.4 [facility]fyhcgzXGZMTIPJZA8078-60-05 00:23:00 Test Item Value Reference Range Interpretation Comments RBC (test code = RBC) 3.41 4.70-6.10 [facility] HospitalYyykfcgZOTLJGIGKI9539-15-00 00:23:00 Test Item Value Reference Range Interpretation Comments Hgb (test code = Hgb) 8.7 14.0-18.0 [facility] HospitalYkwjruvOVUCKAHRWP5882-59-56 00:23:00 Test Item Value Reference Range Interpretation Comments Hct (test code = Hct) 27.2 42.0-54.0 [facility] HospitalOllbdtrUOXSCMGGIJ7960-36-02 00:23:00 Test Item Value Reference Range Interpretation Comments MCV (test code = MCV) 79.7 80.0-94.0 [facility] HospitalBkojlbfDHMJVHVOAC2339-10-53 00:23:00 Test Item Value Reference Range Interpretation Comments MCH (test code = MCH) 25.6 pg 27.0-31.0 [facility] HospitalTllqgjtDGQQDTHRWC8118-41-78 00:23:00 Test Item Value Reference Range Interpretation Comments MCHC (test code = MCHC) 32.1 32.0-36.0 [facility] HospitalVvlpfqvPDMIZDRTHX2585-25-58 00:23:00 Test Item Value Reference Range Interpretation Comments RDW (test code = RDW) 21.8 11.5-14.5 [facility] HospitalVxsxklrAZMKUUDIDC6091-01-45 00:23:00 Test Item Value Reference Range Interpretation Comments Platelet (test code = Platelet) 144 133-450 [facility] HospitalUeaqaezSCYZYWBAXJ1661-51-29 00:23:00 Test Item Value Reference Range Interpretation Comments MPV (test code = MPV) 8.9 7.4-10.4 [facility] HospitalGqgshhpDAQEWRQAJM0104-45-08 00:23:00 Test Item Value Reference Range Interpretation Comments D-Dimer (test code = D-Dimer) 0.60 [facility] HospitalFkpajlvTEGVULFJXN3801-58-32 00:23:00 Test Item Value Reference Range Interpretation Comments PT (test code = PT) 13.6 s 12.0-14.7 [place] 701252-12-23 00:23:00 Test Item Value Reference Range Interpretation Comments INR (test code = INR) 1.04 1 0.85-1.17 [place] 701252-12-23 00:23:00 Test Item Value Reference Range Interpretation Comments Fibrinogen Lvl (test code = Fibrinogen 393 230-510 Lvl) [place] 701252-12-23 00:23:00 Test Item Value Reference Range Interpretation Comments PTT (test code = PTT) 28.3 s 22.9-35.8 [place] 701252-12-23 00:23:00 Test Item Value Reference Range Interpretation Comments Thrombin Time (test code = Thrombin 16.2 s 15.0-21.2 Time) [place] 701252-12-23 00:23:00 Test Item Value Reference Range Interpretation Comments Segs (test code = Segs) 58.3 45.0-75.0 [place] 701252-12-23 00:23:00 Test Item Value Reference Range Interpretation Comments Lymphocytes (test code = Lymphocytes) 28.8 20.0-40.0 [place] 701252-12-23 00:23:00 Test Item Value Reference Range Interpretation Comments Monocytes (test code = Monocytes) 9.0 2.0-12.0 [place] 701252-12-23 00:23:00 Test Item Value Reference Range Interpretation Comments Eosinophils (test code = 2.3 See_Comment [A utomated message] The Eosinophils) system which ge nerated this result tra nsmitted reference range : <=4.0. The reference r bret was not used to int erpret this result as normal/abnormal . [place] 701252-12-23 00:23:00 Test Item Value Reference Range Interpretation Comments Basophils (test code = 1.6 See_Comment [Aut omated message] The Basophils) system which ge nerated this result tra nsmitted reference range : <=1.0. The reference r bret was not used to int erpret this result as normal/abnormal . [place] 701252-12-23 00:23:00 Test Item Value Reference Range Interpretation Comments Neutrophils # (test code = Neutrophils 4.0 1.5-8.1 #) [place] 701252-12-23 00:23:00 Test Item Value Reference Range Interpretation Comments Lymphocytes # (test code = Lymphocytes 2.0 1.0-5.5 #) [facility]XitcxniMOTACJJQED2730-52-83 00:23:00 Test Item Value Reference Range Interpretation Comments Monocytes # (test code 0.6 See_Comment [Aut omated message] The = Monocytes #) system which generated this result tra nsmitted reference range : <=0.8. The reference r bret was not used to int erpret this result as normal/abnormal . [facility] HospitalBrfaplmSRFBVUXFOX6739-52-55 00:23:00 Test Item Value Reference Range Interpretation Comments Eosinophils # (test code 0.2 See_Comment [A utomated message] The = Eosinophils #) system whic h generated this result tra nsmitted reference range : <=0.5. The reference r bret was not used to int erpret this result as normal/abnormal . [facility] HospitalRtqqyumEFRDOUOCFK8321-97-88 00:23:00 Test Item Value Reference Range Interpretation Comments Basophils # (test code 0.1 See_Comment [Aut omated message] The = Basophils #) system which generated this result tra nsmitted reference range : <=0.2. The reference r bret was not used to int erpret this result as normal/abnormal . [facility] HospitalYyfhyutXKKPTMBGTX9268-50-52 00:23:00 Test Item Value Reference Range Interpretation Comments Anisocyte (test code = 1+ *ABN*(02/26/22 Anisocyte) 6:23 PM) [place] 549322-12-23 00:23:00 Test Item Value Reference Range Interpretation Comments Trig (test code = Trig) 84 [facility]padetNAHNYX9029-58-42 00:23:00 Test Item Value Reference Range Interpretation Comments Chol (test code = Chol) 131 [facility] HospitalPotpfocILXPKQ4007-23-84 00:23:00 Test Item Value Reference Range Interpretation Comments HDL (test code = HDL) 32 [facility] HospitalOtdznusIUEAHZ2195-58-99 00:23:00 Test Item Value Reference Range Interpretation Comments Chol/HDL Ratio (test code = Chol/HDL 4.09 1 4.00-7.30 Ratio) [facility]XrmikbaNYVXBP3262-85-58 00:23:00 Test Item Value Reference Range Interpretation Comments LDL (Calculated) (test code = LDL 82 (Calculated)) [place] 549322-12-23 00:23:00 Test Item Value Reference Range Interpretation Comments VLDL (test code = VLDL) 17 1 [facility]annPARATHYROID FVJOKYW6207-94-88 00:23:00 Test Item Value Reference Range Interpretation Comments Ca Ion WB (test code = Ca Ion WB) 1.22 1.05-1.25 [facility] AntonioannPARATHYROID LIVROOQ0197-25-68 00:23:00 Test Item Value Reference Range Interpretation Comments Ca Ion at pH 7.4 WB (test code = Ca Ion 1.17 1.05-1.25 at pH 7.4 WB) [facility] AntonioComplete Network TechnologyIAL FHYBYGBHR7698-28-12 00:23:00 Test Item Value Reference Range Interpretation Comments Hgb A1C (test code = Hgb A1C) 5.8 [facility] [employer] MCYZDEW9541-70-73 00:23:00 Test Item Value Reference Range Interpretation Comments ABO/Rh (test code = ABO/Rh) O POS [facility] [employer] IDODDAF5472-32-57 00:23:00 Test Item Value Reference Range Interpretation Comments Antibody Scrn (test Negative (02/26/22 code = Antibody Scrn) 6:23 PM) [facility] [employer] PFXAACX1129-02-79 00:23:00 Test Item Value Reference Range Interpretation Comments BNP (test code = BNP) 56 [facility] [employer] KSNIKVP8034-49-78 00:23:00 Test Item Value Reference Range Interpretation Comments HS Troponin I Baseline (test code = HS 18 Troponin I Baseline) [employer] NBUVF9359-90-88 00:23:00 Test Item Value Reference Range Interpretation Comments Total Protein (test code = Total 6.8 6.4-8.4 Protein) [facility] [employer] [id number] 00:23:00 Test Item Value Reference Range Interpretation Comments Albumin Lvl (test code = Albumin Lvl) 3.1 3.5-5.0 [facility] [employer] CDRCS9847-03-95 00:23:00 Test Item Value Reference Range Interpretation Comments ALT (test code = ALT) 15 See_Comment [Auto mated message] The system which ge nerated this result transmit jw reference range : <=65. The reference range was not used to interpr et this result as mateo l/abnormal. [employer] [id number] 00:23:00 Test Item Value Reference Range Interpretation Comments AST (test code = AST) 14 See_Comment [Auto mated message] The system which ge nerated this result transmit jw reference range : <=37. The reference range was not used to interpr et this result as mateo l/abnormal. [facility] [employer] YQVDH1228-22-81 00:23:00 Test Item Value Reference Range Interpretation Comments Alk Phos (test code = Alk Phos) 102 39-136 [facility] [employer] RTDLW1405-34-31 00:23:00 Test Item Value Reference Range Interpretation Comments Bili Total (test code = Bili Total) 0.2 0.2-1.3 [facility] [employer] JKRWL2231-99-87 00:23:00 Test Item Value Reference Range Interpretation Comments Globulin (test code = Globulin) 3.7 2.7-4.2 [facility] [employer] [id number] 00:23:00 Test Item Value Reference Range Interpretation Comments A/G Ratio (test code = A/G Ratio) 0.8 1 0.7-1.6 [facility] [employer] [id number] 00:23:00 Test Item Value Reference Range Interpretation Comments Glucose Lvl (test code = Glucose Lvl) 98 70-99 [facility] [employer] OJDBY3237-85-91 00:23:00 Test Item Value Reference Range Interpretation Comments BUN (test code = BUN) 15 7-22 [facility] [employer] [id number] 00:23:00 Test Item Value Reference Range Interpretation Comments Creatinine Lvl (test code = Creatinine 0.92 0.50-1.40 Lvl) [facility] AntonioZymeworks OGBKX3411-41-79 00:23:00 Test Item Value Reference Range Interpretation Comments Sodium Lvl (test code = Sodium Lvl) 136 135-145 [facility] [employer] [id number] 00:23:00 Test Item Value Reference Range Interpretation Comments Potassium Lvl (test code = Potassium 4.0 3.5-5.1 Lvl) [facility] [employer] [id number] 00:23:00 Test Item Value Reference Range Interpretation Comments Chloride Lvl (test code = Chloride Lvl) 101 95-109 [facility] [employer] [id number] 00:23:00 Test Item Value Reference Range Interpretation Comments CO2 (test code = CO2) 30 24-32 [place] 591442-12-23 00:23:00 Test Item Value Reference Range Interpretation Comments Calcium Lvl (test code = Calcium Lvl) 8.8 8.5-10.5 [place] 591442-12-23 00:23:00 Test Item Value Reference Range Interpretation Comments AGAP (test code = AGAP) 9.0 10.0-20.0 [place] 591442-12-23 00:23:00 Test Item Value Reference Range Interpretation Comments B/C Ratio (test code = B/C Ratio) 16 1 6-25 [place] [address]-12-23 00:23:00 Test Item Value Reference Range Interpretation Comments eGFR (test code = eGFR) 88 [place] 591442-12-23 00:23:00 Test Item Value Reference Range Interpretation Comments Lactic Acid Lvl (test code = Lactic 1.2 0.5-2.2 Acid Lvl) [place] 591442-12-23 00:23:00 Test Item Value Reference Range Interpretation Comments Magnesium Lvl (test code = Magnesium 1.8 1.8-2.4 Lvl) [place] 591442-12-23 00:23:00 Test Item Value Reference Range Interpretation Comments Phosphorus (test code = Phosphorus) 3.3 2.5-4.5 [place] 236032-12-23 00:23:00 Test Item Value Reference Range Interpretation Comments BNP (test code = BNP) 56 [place] 236032-12-23 00:23:00 Test Item Value Reference Range Interpretation Comments Total Protein (test code = Total 6.8 6.4-8.4 Protein) [place] 236032-12-23 00:23:00 Test Item Value Reference Range Interpretation Comments Albumin Lvl (test code = Albumin Lvl) 3.1 3.5-5.0 [place] 236032-12-23 00:23:00 Test Item Value Reference Range Interpretation Comments ALT (test code = ALT) 15 See_Comment [Auto mated message] The system which ge nerated this result transmit jw reference range : <=65. The reference range was not used to interpr et this result as mateo l/abnormal. [place] 236032-12-23 00:23:00 Test Item Value Reference Range Interpretation Comments AST (test code = AST) 14 See_Comment [Auto mated message] The system which ge nerated this result transmit jw reference range : <=37. The reference range was not used to interpr et this result as mateo l/abnormal. [facility] ArlingtonXxpdltfEBQYBQPQU4177-06-86 00:23:00 Test Item Value Reference Range Interpretation Comments Alk Phos (test code = Alk Phos) 102 39-136 [facility] ArlingtonFjfekvvBYMLYJUSF3074-84-21 00:23:00 Test Item Value Reference Range Interpretation Comments Bili Total (test code = Bili Total) 0.2 0.2-1.3 [facility] ArlingtonAopfqgsXACXBBTOC9580-41-79 00:23:00 Test Item Value Reference Range Interpretation Comments Globulin (test code = Globulin) 3.7 2.7-4.2 [facility] ArlingtonJborupeIABCDMFXE3644-20-67 00:23:00 Test Item Value Reference Range Interpretation Comments A/G Ratio (test code = A/G Ratio) 0.8 1 0.7-1.6 [facility] ArlingtonGhnwsftZQOACWYFK4985-77-71 00:23:00 Test Item Value Reference Range Interpretation Comments B/C Ratio (test code = B/C Ratio) 16 1 6-25 [facility] ArlingtonFtrigahVGHFCXNEC8806-52-89 00:23:00 Test Item Value Reference Range Interpretation Comments Hgb A1C (test code = Hgb A1C) 5.8 [facility] ArlingtonXqxbtimEJGYQTMXU5644-38-85 00:23:00 Test Item Value Reference Range Interpretation Comments Lactic Acid Lvl (test code = Lactic 1.2 0.5-2.2 Acid Lvl) [facility] ArlingtonHhwdijgRSKSDWLPS2379-63-66 00:23:00 Test Item Value Reference Range Interpretation Comments Trig (test code = Trig) 84 [facility] ArlingtonMctqrdmVNDNDHIFK1765-45-30 00:23:00 Test Item Value Reference Range Interpretation Comments Chol (test code = Chol) 131 [facility] ArlingtonFnbfbsqHBZRAFQKZ7381-34-83 00:23:00 Test Item Value Reference Range Interpretation Comments HDL (test code = HDL) 32 [facility] ArlingtonRhehnwoHUGZDTNVT6250-68-56 00:23:00 Test Item Value Reference Range Interpretation Comments Chol/HDL Ratio (test code = Chol/HDL 4.09 1 4.00-7.30 Ratio) [facility] ArlingtonSesydgvLLECLWWFU7419-67-14 00:23:00 Test Item Value Reference Range Interpretation Comments LDL (Calculated) (test code = LDL 82 (Calculated)) [facility] ArlingtonPqijayhCBZSETYJL6083-83-26 00:23:00 Test Item Value Reference Range Interpretation Comments VLDL (test code = VLDL) 17 1 [facility] ArlingtonLirukiqCCJSXBHTY0209-41-34 00:23:00 Test Item Value Reference Range Interpretation Comments HS Troponin I Baseline (test code = HS 18 Troponin I Baseline) [facility] ArlingtonLjowdowDXCAICKHN0909-95-86 00:23:00 Test Item Value Reference Range Interpretation Comments TSH (test code = TSH) 1.330 0.360-3.740 [facility]BlhetphNILBZXLBTW0312-69-59 00:23:00 Test Item Value Reference Range Interpretation Comments WBC (test code = WBC) 6.9 3.7-10.4 [facility] HospitalJkdnczgPLRMZBQICK5394-31-83 00:23:00 Test Item Value Reference Range Interpretation Comments RBC (test code = RBC) 3.41 4.70-6.10 [facility] HospitalYdyrxagIWJOERVYRO4036-68-87 00:23:00 Test Item Value Reference Range Interpretation Comments Hgb (test code = Hgb) 8.7 14.0-18.0 [facility] HospitalVdfrtaxXQKGHGHXXI8897-07-49 00:23:00 Test Item Value Reference Range Interpretation Comments Hct (test code = Hct) 27.2 42.0-54.0 [facility] HospitalHpzeiblFRXOLRSOVG3937-13-43 00:23:00 Test Item Value Reference Range Interpretation Comments MCV (test code = MCV) 79.7 80.0-94.0 [facility] HospitalZbzefegDJOJJOPVJK6093-45-30 00:23:00 Test Item Value Reference Range Interpretation Comments MCH (test code = MCH) 25.6 pg 27.0-31.0 [facility] HospitalLrswfpqESIGIUBPSJ6546-22-38 00:23:00 Test Item Value Reference Range Interpretation Comments MCHC (test code = MCHC) 32.1 32.0-36.0 [facility] HospitalVtcdayiPWUDHLCPTA8536-58-87 00:23:00 Test Item Value Reference Range Interpretation Comments RDW (test code = RDW) 21.8 11.5-14.5 [facility] HospitalTfnsuwvVKTXEIJSRD1109-19-79 00:23:00 Test Item Value Reference Range Interpretation Comments Platelet (test code = Platelet) 144 133-450 [place] [address]-12-23 00:23:00 Test Item Value Reference Range Interpretation Comments MPV (test code = MPV) 8.9 7.4-10.4 [place] [address]-12-23 00:23:00 Test Item Value Reference Range Interpretation Comments D-Dimer (test code = D-Dimer) 0.60 [place] [address]-12-23 00:23:00 Test Item Value Reference Range Interpretation Comments PT (test code = PT) 13.6 s 12.0-14.7 [place] [address]-12-23 00:23:00 Test Item Value Reference Range Interpretation Comments INR (test code = INR) 1.04 1 0.85-1.17 [place] [address]-12-23 00:23:00 Test Item Value Reference Range Interpretation Comments Fibrinogen Lvl (test code = Fibrinogen 393 230-510 Lvl) [place] 701252-12-23 00:23:00 Test Item Value Reference Range Interpretation Comments PTT (test code = PTT) 28.3 s 22.9-35.8 [place] [address]-12-23 00:23:00 Test Item Value Reference Range Interpretation Comments Thrombin Time (test code = Thrombin 16.2 s 15.0-21.2 Time) [place] 701252-12-23 00:23:00 Test Item Value Reference Range Interpretation Comments Segs (test code = Segs) 58.3 45.0-75.0 [place] 701252-12-23 00:23:00 Test Item Value Reference Range Interpretation Comments Lymphocytes (test code = Lymphocytes) 28.8 20.0-40.0 [place] [address]-12-23 00:23:00 Test Item Value Reference Range Interpretation Comments Monocytes (test code = Monocytes) 9.0 2.0-12.0 [place] [address]-12-23 00:23:00 Test Item Value Reference Range Interpretation Comments Eosinophils (test code = 2.3 See_Comment [A utomated message] The Eosinophils) system which ge nerated this result tra nsmitted reference range : <=4.0. The reference r bret was not used to int erpret this result as normal/abnormal . [place] 701252-12-23 00:23:00 Test Item Value Reference Range Interpretation Comments Basophils (test code = 1.6 See_Comment [Aut omated message] The Basophils) system which ge nerated this result tra nsmitted reference range : <=1.0. The reference r bret was not used to int erpret this result as normal/abnormal . [facility] HospitalOdtakhyOBADHNNNDM5276-45-74 00:23:00 Test Item Value Reference Range Interpretation Comments Neutrophils # (test code = Neutrophils 4.0 1.5-8.1 #) [facility] HospitalKtysxsnQDJBTVZGRB2603-88-15 00:23:00 Test Item Value Reference Range Interpretation Comments Lymphocytes # (test code = Lymphocytes 2.0 1.0-5.5 #) [facility] [facility]anc[facility]ryOWVKCYUYIL8952-59-75 00:23:00 Test Item Value Reference Range Interpretation Comments Monocytes # (test code 0.6 See_Comment [Aut omated message] The = Monocytes #) system which generated this result tra nsmitted reference range : <=0.8. The reference r bret was not used to int erpret this result as normal/abnormal . [facility]UT[facility]75[facility]16-66 [facility]:23:00 Test Item Value Reference Range Interpretation Comments Eosinophils # (test code 0.2 See_Comment [A utomated message] The = Eosinophils #) system whic h generated this result tra nsmitted reference range : <=0.5. The reference r bret was not used to int erpret this result as normal/abnormal . [facility] HospitalXurdkunXJNHIQSAVP5280-55-46 00:23:00 Test Item Value Reference Range Interpretation Comments Basophils # (test code 0.1 See_Comment [Aut omated message] The = Basophils #) system which generated this result tra nsmitted reference range : <=0.2. The reference r bret was not used to int erpret this result as normal/abnormal . [facility] HospitalPawldojWXTHVPJOKG8820-92-14 00:23:00 Test Item Value Reference Range Interpretation Comments Anisocyte (test code = 1+ *ABN*(02/26/22 Anisocyte) 6:23 PM) [place] [id number] 00:23:00 Test Item Value Reference Range Interpretation Comments Trig (test code = Trig) 84 [facility]CBFWWB6267[facility]-92 [facility]:23:00 Test Item Value Reference Range Interpretation Comments Chol (test code = Chol) 131 [facility] AntonioOhakhpyTEEGXN3243-86-64 00:23:00 Test Item Value Reference Range Interpretation Comments HDL (test code = HDL) 32 [facility] AntonioOljaratJDKLBC1267-42-40 00:23:00 Test Item Value Reference Range Interpretation Comments Chol/HDL Ratio (test code = Chol/HDL 4.09 1 4.00-7.30 Ratio) [facility] UnkcvjvRMCTXV2960-59-76 00:23:00 Test Item Value Reference Range Interpretation Comments LDL (Calculated) (test code = LDL 82 (Calculated)) [facility] AntonioKvssumuSUCVOA9545-21-79 00:23:00 Test Item Value Reference Range Interpretation Comments VLDL (test code = VLDL) 17 1 [facility] [employer]PARTapruROID [id number] 00:23:00 Test Item Value Reference Range Interpretation Comments Ca Ion WB (test code = Ca Ion WB) 1.22 1.05-1.25 [facility] [employer] [id number] 00:23:00 Test Item Value Reference Range Interpretation Comments Ca Ion at pH 7.4 WB (test code = Ca Ion 1.17 1.05-1.25 at pH 7.4 WB) [facility] AntonioComplete Network TechnologyIAL [id number] 00:23:00 Test Item Value Reference Range Interpretation Comments Hgb A1C (test code = Hgb A1C) 5.8 [facility] [employer] [id number] 00:23:00 Test Item Value Reference Range Interpretation Comments ABO/Rh (test code = ABO/Rh) O POS [facility] [employer] [id number] 00:23:00 Test Item Value Reference Range Interpretation Comments Antibody Scrn (test Negative (02/26/22 code = Antibody Scrn) 6:23 PM) [facility] [employer] [id number] 00:23:00 Test Item Value Reference Range Interpretation Comments BNP (test code = BNP) 56 [facility] [employer] [id number] 00:23:00 Test Item Value Reference Range Interpretation Comments HS Troponin I Baseline (test code = HS 18 Troponin I Baseline) [facility] [employer] [id number] 00:23:00 Test Item Value Reference Range Interpretation Comments Total Protein (test code = Total 6.8 6.4-8.4 Protein) [facility] [employer] [id number] 00:23:00 Test Item Value Reference Range Interpretation Comments Albumin Lvl (test code = Albumin Lvl) 3.1 3.5-5.0 [facility] AntonioZymeworks [id number] 00:23:00 Test Item Value Reference Range Interpretation Comments ALT (test code = ALT) 15 See_Comment [Auto mated message] The system which ge nerated this result transmit jw reference range : <=65. The reference range was not used to interpr et this result as mateo l/abnormal. [facility] AntonioZym[facility] [id number] 00:23:00 Test Item Value Reference Range Interpretation Comments AST (test code = AST) 14 See_Comment [Auto mated message] The system which ge nerated this result transmit jw reference range : <=37. The reference range was not used to interpr et this result as mateo l/abnormal. [facility] AntonioZym[facility] [id number] 00:23:00 Test Item Value Reference Range Interpretation Comments Alk Phos (test code = Alk Phos) 102 39-136 [facility] Antonio[facility] [id number] 00:23:00 Test Item Value Reference Range Interpretation Comments Bili Total (test code = Bili Total) 0.2 0.2-1.3 [facility] [employer] [id number] 00:23:00 Test Item Value Reference Range Interpretation Comments Globulin (test code = Globulin) 3.7 2.7-4.2 [facility] [employer] [id number] 00:23:00 Test Item Value Reference Range Interpretation Comments A/G Ratio (test code = A/G Ratio) 0.8 1 0.7-1.6 [facility] [employer] [id number] 00:23:00 Test Item Value Reference Range Interpretation Comments Glucose Lvl (test code = Glucose Lvl) 98 70-99 [facility] [employer] [id number] 00:23:00 Test Item Value Reference Range Interpretation Comments BUN (test code = BUN) 15 7-22 [facility] [employer] [id number] 00:23:00 Test Item Value Reference Range Interpretation Comments Creatinine Lvl (test code = Creatinine 0.92 0.50-1.40 Lvl) [facility] Antonio[facility] [id number] 00:23:00 Test Item Value Reference Range Interpretation Comments Sodium Lvl (test code = Sodium Lvl) 136 135-145 [facility]2022-12-23 00:23:00 Test Item Value Reference Range Interpretation Comments Potassium Lvl (test code = Potassium 4.0 3.5-5.1 Lvl) [facility]2022-12-23 00:23:00 Test Item Value Reference Range Interpretation Comments Chloride Lvl (test code = Chloride Lvl) 101 95-109 [facility]2022-12-23 00:23:00 Test Item Value Reference Range Interpretation Comments CO2 (test code = CO2) 30 24-32 [place] [id number] 00:23:00 Test Item Value Reference Range Interpretation Comments Calcium Lvl (test code = Calcium Lvl) 8.8 8.5-10.5 [place] [id number] 00:23:00 Test Item Value Reference Range Interpretation Comments AGAP (test code = AGAP) 9.0 10.0-20.0 [facility]2022-12-23 00:23:00 Test Item Value Reference Range Interpretation Comments B/C Ratio (test code = B/C Ratio) 16 1 6-25 [place] [id number] 00:23:00 Test Item Value Reference Range Interpretation Comments eGFR (test code = eGFR) 88 [facility]2022-12-23 00:23:00 Test Item Value Reference Range Interpretation Comments Lactic Acid Lvl (test code = Lactic 1.2 0.5-2.2 Acid Lvl) [place] [id number] 00:23:00 Test Item Value Reference Range Interpretation Comments Magnesium Lvl (test code = Magnesium 1.8 1.8-2.4 Lvl) [facility]2022-12-23 00:23:00 Test Item Value Reference Range Interpretation Comments Phosphorus (test code = Phosphorus) 3.3 2.5-4.5 [id number] 00:23:00 Test Item Value Reference Range Interpretation Comments BNP (test code = BNP) 56 [facility] WITH [id number] 19:55:39 Test Item Value Reference Range Interpretation [...] (test code = 55.2 fL 38.5-51.6 H 98025-2) RDW-CV (test code = 19.2 % 12.1-15.4 H 788-0) PLT (test code = See_Comment [Automated 777-3) message] The sy stem which generated this result transmitted reference range : 150 - 328 10*3/ ?L. The reference r bret was not used to interpret this result as normal/abnormal . MPV (test code = 11.1 fL 9.8-13 85840-8) NRBC/100 WBC (test See_Comment [Automat ed code = 5107818173) message] The system which generated this result transmitted reference range : 0.0 - 10.0 /100 WBCs. The refer ence range was not u sed to interpret th is result as normal/abnormal . NRBC x10^3 (test code See_Comment [Auto mated = 5491448394) message] The s ystem which generated this result transmitted reference range : 10*3/?L. The reference range was not used to interpret this result as normal/abnormal . GRAN MAT (NEUT) % 50.2 % (test code = 770-8) IMM GRAN % (test code 0.90 % = 1701671873) LYMPH % (test code = 33.5 % 736-9) MONO % (test code = 12.1 % 5905-5) EOS % (test code = 1.9 % 713-8) BASO % (test code = 1.4 % 706-2) GRAN MAT x10^3(ANC) 2.16 10*3/uL 1.99-6.95 (test code = 3233644344) IMM GRAN x10^3 (test 0.04 10*3/uL 0-0.06 code = 3891235953) LYMPH x10^3 (test code 1.44 10*3/uL 1.09-3.23 = 731-0) MONO x10^3 (test code 0.52 10*3/uL 0.36-1.02 = 742-7) EOS x10^3 (test code = 0.08 10*3/uL 0.06-0.53 711-2) BASO x10^3 (test code 0.06 10*3/uL 0.01-0.09 = 704-7) ELLIPTO/OVAL (test 2+ See_Comment A [Automat ed code = 08037-3) message] The system which generated this result transmitted reference range : (none). The reference range was not used to interpret this result as normal/abnormal . POLYCHROMASIA (test 2+ See_Comment [Automa jw code = 11988-1) message] The system which generated this result transmitted reference range : 2+. The referen ce range was not u sed to interpret th is result as normal/abnormal . Lab Interpretation Abnormal (test code = 49131-5) [facility]ON[facility]OC[facility] [id number] 19:30:38 Test Item Value Reference Interpretation Comments Range TROPONIN I (test See_Comment [Automated code = 1739046749) message] The system which generated this result [...] biotin. Lab Interpretation Normal (test code = 82947-9) [facility] [id number] 19:30:12 Test Item Value Reference Range Interpretation Comments NT-proBNP (test code 319 pg/mL See_Comment H [Autom ated = 4900859805) message] The system which generated this result transmitted reference range : <=125. The reference range was not used to interpret this result as normal/abnormal . ANDREA (test code = ANDREA) Biotin has been reported to cause a negative bias, interpret results relative to patient's use of biotin. Lab Interpretation Abnormal (test code = 68393-0) [facility]. METABOLIC PANEL (03758)2021-12-09 19:18:24 Test Item Value Reference Range Interpretation Comments NA (test code = 137 mmol/L 135-145 7827653932) K (test code = 4.5 mmol/L 3.5-5 4359945011) CL (test code = 100 mmol/L 98-108 3285588163) CO2 TOTAL (test code = 24 mmol/L 23-31 6140527180) AGAP (test code = 2-16 7734163613) BUN (test code = 10 mg/dL 7-23 0431569032) GLUCOSE (test code = 132 mg/dL 70-110 H 9582190982) CREATININE (test code = 0.92 mg/dL 0.6-1.25 5033518484) TOTAL BILI (test code = 0.6 mg/dL 0.1-1.7 7597758308) CALCIUM (test code = 9.7 mg/dL 8.6-10.6 6895216509) T PROTEIN (test code = 7.5 g/dL 6.3-8.2 5977652643) ALBUMIN (test code = 4.5 g/dL 3.5-5 6395464773) ALK PHOS (test code = 88 U/L 34-122 0991977908) ALTv (test code = 16 U/L 5-50 1742-6) AST(SGOT) (test code = 32 U/L 13-40 0738781030) eGFR (test code = mL/min/1.73m2 2950404884) ANDREA (test code = ANDREA) Association of [...] tests). Lab Interpretation Abnormal (test code = 64168-8) [facility] HospitalLIPASE[facility]22-[facility] 19:18:03 Test Item Value Reference Range Interpretation Comments LIPASE (test code = 7643143074) 78 U/L 0-220 Lab Interpretation (test code = Normal 54446-9) [facility] HospitalPROTHROMBIN TIME / [id number] 19:03:22 Test Item Value Reference Range Interpretation Comments PROTIME PATIENT (test See_Comment [Auto mated message] code = 5964-2) The system [employer] generated this result transmitted ref erence range: 12.0 - 1 4.7 Seconds. The re ference range was not u sed to interpret this result as normal/abnor mal. INR (test code = 6301-6) Nor mal INR <1.1; Warfarin Therap eutic range 2.0 to 3. 0 or 2.5 to 3.5, dep ending upon the indica tions. Lab Interpretation (test Normal code = 00333-6) [facility] HospitalTran[facility] echo (TTE)2021-11-26 21:19:15 Test Item Value Reference Range Interpretation Comments Height (test code = in 8663313610) Weight (test code = lbs 2924579994) Systolic BP (test mmHg code = 3413406980) Diastolic BP (test mmHg code = 6176720827) Heart Rate (test code bpm = 4423623074) BSA (test code = 1.75 m2 2174030476) Radiology Study observation (narrative) (test code = 45933-5) ANDREA (test code = ANDREA) ?Left?Atrium: Left [...] contrast was performed. Patient exhibited sinus rhythm. [facility] Protocol - Transthoracic echo (TTE) 2021-11-25 21:27:22 Test Item Value Reference Range Interpretation Comments LVIDD (test code = 4.50 cm 9986488370) Interventricular Septum 0.91 cm Diastolic Thickness by 2D (test code = 3232048) PW (test code = 0.86 cm 0.6-1.2 2930721423) LVIDS (test code = 3.10 cm 8997227207) LA volume (BP) (test 41.9 mL code = 2478820240) LA size (test code = 3.7 cm 4447072927) LVPWD (test code = 0.86 cm 8599466599) AV LVOT peak gradient mmHg (test code = 7989105850) E/A ratio (test code = ratio 5223892686) E wave decelartion time 0.19 s (test code = 8310991152) LVOT diameter (test code 1.88 cm = 7637487470) LVOT peak VTI (test code 24.9 cm = 3862991683) Ao peak adry (test code = 168.7 cm/s 6240402189) LVOT stroke volume (test 69.10 cm3 code = 2447883339) AV peak gradient (test mmHg code = 9413079414) Triscuspid Valve mmHg Regurgitation Peak Gradient (test code = 6888134341) MV Peak E Adry (test code 76.3 cm/s = 8008306672) MV Peak A Adry (test code 100.3 cm/s = 6677269044) LA Volume Index (BP) 24.0 mL/m2 (test code = 4206985965) IVS (test code = 0.91 cm 1663927401) Aortic root (test code = 3.2 cm 8477955483) Tapse (test code = 2.43 cm 8617039347) EF - 2D (test code = 58.70 % 15733097) Left Ventricular End 90.1 mL Diastolic Volume by Teichholz Method (test code = 8030247) Left Ventricular End 37.2 mL Systolic Volume by Teichholz Method (test code = 3608787) Ao root annulus (test 3.2 cm code = 3401803343) FS (test code = 31 % 4550881352) LVOT mn grad (test code mmHg = 5472565355) AV area peak adry (test 2.1 cm2 code = 7423723327) TR Peak Adry (test code = 339.1 cm/s 4113117391) LVOT area (test code = 2.80 cm2 6596387561) LVOT peak adry (test code 126.9 cm/s = 4658140608) BSA (test code = 1.75 m2 1642334705) Ao root diam (test code 3.20 cm = 3075379682) EF(Teich) (test code = 58.70 % 8879273791) LAV(MOD-sp2) (test code 34.60 mL = 8625006829) LAV(MOD-sp4) (test code 38.60 mL = 1556558846) LV V1 mean (test code = 74.30 cm/s 5625642393) MV Prop V (test code = 65.50 cm/s 9825686050) Ao max PG (test code = 11.40 mm[Hg] 5049662951) Height (test code = in 4188692384) Weight (test code = lbs 1440626714) Systolic BP (test code = mmHg 5983016362) Diastolic BP (test code mmHg = 7290745995) Heart Rate (test code = bpm 8104184247) MV E/e' septal (test 9.7 cm/s code = 2972363668) Radiology Study observation (narrative) (test code = 26173-0) ANDREA (test code = ANDREA) ?Left?Ventricle: Left [...] mL of Lumason ultrasound enhancing agent used. [facility] HospitalFASTING LIPID PANEL (00000)(TOTAL CHOLESTEROL, TRIGLYCERIDES, HDL)2021-11-25 14:04:16 Test Item Value Reference Range Interpretation Comments CHOL (test code = 113 mg/dL 120-200 L 6733243715) HDL (test code = 22 mg/dL See_Comment L [Automated message] 7579348947) The system [employer] generated this result transmit jw reference range : >=40. The refer ence range was not u sed to interpret th is result as normal/abnormal . HDLC RATIO (test code = See_Comment H [Au tomated message] 2664914832) The system [employer] generated this result transmit jw reference range : <=5.0. The refe rence range was not u sed to interpret th is result as normal/abnormal . TRIG (test code = 97 mg/dL 30-170 8347609774) LDL CHOL (test code = 72 mg/dL See_Comment [Auto mated message] 28877-1) The system [employer] generated this result transmit jw reference range : <=160. The refe rence range was not u sed to interpret th is result as normal/abnormal . VLDL (test code = 19 mg/dL 5-60 5061123017) Lab Interpretation (test Abnormal code = 30397-7) [facility] HospitalGLYCOSYLATED HEMOGLOBIN (A1C)2021-11-25 00:36:38 Test Item Value Reference Range Interpretation Comments HGB A1C (test code = 6.0 % 4-5.7 H 4548-4) ANDREA (test code = ANDREA) Reference RangesNormal: <5.7%Prediabetes: 5.7 - 6.4%Diabetes: > 6.5% Lab Interpretation (test Abnormal code = 14208-5) [facility] HospitalCOMP. METABOLIC PANEL (72344)2021-11-24 19:07:52 Test Item Value Reference Range Interpretation Comments NA (test code = 134 mmol/L 135-145 L 2658376805) K (test code = 3.9 mmol/L 3.5-5 3470070747) CL (test code = 100 mmol/L 98-108 4801968224) CO2 TOTAL (test code = 27 mmol/L 23-31 2247268386) AGAP (test code = 2-16 8183725031) BUN (test code = 11 mg/dL 7-23 8651933408) GLUCOSE (test code = 96 mg/dL 70-110 6221729144) CREATININE (test code = 0.84 mg/dL 0.6-1.25 7422288579) TOTAL BILI (test code = 0.2 mg/dL 0.1-1.1 3787216665) CALCIUM (test code = 8.0 mg/dL 8.6-10.6 L 2212888014) T PROTEIN (test code = 5.9 g/dL 6.3-8.2 L 3390282344) ALBUMIN (test code = 3.9 g/dL 3.5-5 9182416294) ALK PHOS (test code = 88 U/L 34-122 1630660108) ALTv (test code = 15 U/L 5-50 1742-6) AST(SGOT) (test code = 24 U/L 13-40 3508861390) eGFR (test code = mL/min/1.73m2 4444956075) ANDREA (test code = ANDREA) Association of [...] tests). Lab Interpretation Abnormal (test code = 54010-3) [facility] WITH [id number] 18:58:27 Test Item Value Reference Range Interpretation [...] (test code = 53.2 fL 38.5-51.6 H 19346-2) RDW-CV (test code = 18.6 % 12.1-15.4 H 788-0) PLT (test code = See_Comment [Automated 777-3) message] The sy stem which generated this result transmitted reference range : 150 - 328 10*3/ ?L. The reference r bret was not used to interpret this result as normal/abnormal . MPV (test code = 11.4 fL 9.8-13 16193-1) NRBC/100 WBC (test See_Comment [Automat ed code = 6291158748) message] The system which generated this result transmitted reference range : 0.0 - 10.0 /100 WBCs. The refer ence range was not u sed to interpret th is result as normal/abnormal . NRBC x10^3 (test code See_Comment [Auto mated = 3589294651) message] The s ystem which generated this result transmitted reference range : 10*3/?L. The reference range was not used to interpret this result as normal/abnormal . GRAN MAT (NEUT) % 48.8 % (test code = 770-8) IMM GRAN % (test code 1.00 % = 6463020719) LYMPH % (test code = 34.6 % 736-9) MONO % (test code = 12.2 % 5905-5) EOS % (test code = 2.2 % 713-8) BASO % (test code = 1.2 % 706-2) GRAN MAT x10^3(ANC) 1.96 10*3/uL 1.99-6.95 L (test code = 2369075764) IMM GRAN x10^3 (test 0.04 10*3/uL 0-0.06 code = 8627746063) LYMPH x10^3 (test code 1.39 10*3/uL 1.09-3.23 [...] 2+ See_Comment A [Automat ed code = 04475-3) message] The system which generated this result transmitted reference range : (none). The reference range was not used to interpret this result as normal/abnormal . POLYCHROMASIA (test 2+ See_Comment [Automa jw code = 17426-9) message] The system which generated this result transmitted reference range : 2+. The referen ce range was not u sed to interpret th is result as normal/abnormal . SCHISTOCYTES (test 1+ A code = 800-3) REACT LYMPHS (test Rare code = 5007644062) Lab Interpretation Abnormal (test code = 68189-4) [facility]AL [id number] 18:15:21 Test Item Value Reference Range Interpretation Comments NT-proBNP (test code 274 pg/mL See_Comment H [Autom ated = 1906714318) message] The system which generated this result transmitted reference range : <=125. The reference range was not used to interpret this result as normal/abnormal . ANDREA (test code = ANDREA) Biotin has been reported to cause a negative bias, interpret results relative to patient's use of biotin. Lab Interpretation Abnormal (test code = 56871-9) [facility] WITH [id number] 18:55:42 Test Item Value Reference Range Interpretation [...] (test code = 51.9 fL 38.5-51.6 H 77280-1) RDW-CV (test code = 17.8 % 12.1-15.4 H 788-0) PLT (test code = See_Comment [Automated 777-3) message] The sy stem which generated this result transmitted reference range : 150 - 328 10*3/ ?L. The reference r bret was not used to interpret this result as normal/abnormal . MPV (test code = 11.6 fL 9.8-13 95387-1) NRBC/100 WBC (test See_Comment [Automat ed code = 6648732380) message] The system which generated this result transmitted reference range : 0.0 - 10.0 /100 WBCs. The refer ence range was not u sed to interpret th is result as normal/abnormal . NRBC x10^3 (test code See_Comment [Auto mated = 4163614402) message] The s ystem which generated this result transmitted reference range : 10*3/?L. The reference range was not used to interpret this result as normal/abnormal . GRAN MAT (NEUT) % 42.1 % (test code = 770-8) IMM GRAN % (test code 0.90 % = 5547841136) LYMPH % (test code = 37.6 % 736-9) MONO % (test code = 14.9 % 5905-5) EOS % (test code = 3.0 % 713-8) BASO % (test code = 1.5 % 706-2) GRAN MAT x10^3(ANC) 1.95 10*3/uL 1.99-6.95 L (test code = 9760208443) IMM GRAN x10^3 (test 0.04 10*3/uL 0-0.06 code = 4669348809) LYMPH x10^3 (test code 1.74 10*3/uL 1.09-3.23 = 731-0) MONO x10^3 (test code 0.69 10*3/uL 0.36-1.02 = 742-7) EOS x10^3 (test code = 0.14 10*3/uL 0.06-0.53 711-2) BASO x10^3 (test code 0.07 10*3/uL 0.01-0.09 = 704-7) ELLIPTO/OVAL (test 2+ See_Comment A [Automat ed code = 72895-0) message] The system which generated this result transmitted reference range : (none). The reference range was not used to interpret this result as normal/abnormal . POLYCHROMASIA (test 2+ See_Comment [Automa jw code = 04923-3) message] The system which generated this result transmitted reference range : 2+. The referen ce range was not u sed to interpret th is result as normal/abnormal . REACT LYMPHS (test Rare code = 4396655140) GIANT PLATELETS (test Present See_Comment A [Auto mated code = 5908-9) message] The system which generated this result transmitted reference range : (none). The reference range was not used to interpret this result as normal/abnormal . Lab Interpretation Abnormal (test code = 78835-8) [facility]ACT[facility]IAL THRMPLAS [id number] 18:29:11 Test Item Value Reference Range Interpretation Comments APTT Patient (test See_Comment [Automat ed code = 3173-2) message] The system which generated this result transmitted reference range : 23 - 38 Seconds . The reference range was not used to interpr et this result as normal/abnormal . ANDREA (test code = ANDREA) The [facility] patient population mean normal value for aPTT is 30 seconds. Lab Interpretation Normal (test code = 17441-8) [facility] HospitalPROTHROMBIN TIME / [id number] 18:26:49 Test Item Value Reference Range Interpretation [...] tions. Lab Interpretation (test Normal code = 26787-9) [facility] HospitalTROPONIN [id number] 18:14:50 Test Item Value Reference Interpretation Comments Range TROPONIN I (test 0.013 ng/mL See_Comment [Automated code = 1578233868) message] The system which generated this result [...] biotin. Lab Interpretation Normal (test code = 34969-2) [facility] [id number] 18:11:48 Test Item Value Reference Range Interpretation Comments NT-proBNP (test code 286 pg/mL See_Comment H [Autom ated = 1850416871) message] The system which generated this result transmitted reference range : <=125. The reference range was not used to interpret this result as normal/abnormal . ANDREA (test code = ANDREA) Biotin has been reported to cause a negative bias, interpret results relative to patient's use of biotin. Lab Interpretation Abnormal (test code = 79048-0) [facility]. METABOLIC PANEL (11830)2021-11-08 18:03:05 Test Item Value Reference Range Interpretation Comments NA (test code = 133 mmol/L 135-145 L 8249769294) K (test code = 5.1 mmol/L 3.5-5 H [id number]) CL (test code = 101 mmol/L 98-108 6397760645) CO2 TOTAL (test code = 26 mmol/L 23-31 4245575413) AGAP (test code = 2-16 4330323376) BUN (test code = 16 mg/dL 7-23 8037207137) GLUCOSE (test code = 93 mg/dL 70-110 6998480948) CREATININE (test code = 0.85 mg/dL 0.6-1.25 6249082283) TOTAL BILI (test code = 0.8 mg/dL 0.1-1.3 3892797438) CALCIUM (test code = 8.4 mg/dL 8.6-10.6 L 4366584764) T PROTEIN (test code = 7.0 g/dL 6.3-8.2 4317795731) ALBUMIN (test code = 4.2 g/dL 3.5-5 5371065802) ALK PHOS (test code = 73 U/L 34-122 3297860328) ALTv (test code = 15 U/L 550 2-6) AST(SGOT) (test code = 40 U/L 13-40 2749639185) eGFR (test code = mL/min/1.73m2 8797390616) ANDREA (test code = ANDREA) Association of [...] tests). Lab Interpretation Abnormal (test code = 09562-1) [facility]25 Test Item Value Reference Range Interpretation Comments LIPASE (test code = 6292084031) 98 U/L 0-220 Lab Interpretation (test code = Normal 96769-2) [facility] WITH [id number] 20:51:06 Test Item Value Reference Range Interpretation [...] (test code = 51.9 fL 38.5-51.6 H 59324-1) RDW-CV (test code = 15.9 % 12.1-15.4 H 788-0) PLT (test code = See_Comment [Automated 777-3) message] The sy stem which generated this result transmitted reference range : 150 - 328 10*3/ ?L. The reference r bret was not used to interpret this result as normal/abnormal . MPV (test code = 12.1 fL 9.8-13.0 54133-2) NRBC/100 WBC (test See_Comment [Automat ed code = 4574907482) message] The system which generated this result transmitted reference range : 0.0 - 10.0 /100 WBCs. The refer ence range was not u sed to interpret th is result as normal/abnormal . NRBC x10^3 (test code <0.01 See_Comment [Auto mated = [id number]) message] The s ystem which generated this result transmitted reference range : 10*3/?L. The reference range was not used to interpret this result as normal/abnormal . SEG % (test code = 44 % 33-76 52602-5) BAND % (test code = 6 % 0-1 H 71252-7) LYMPH % (test code = 30 % 14-54 43816-9) REACT LYMPH % (test 3 % code = 8944187255) MONO % (test code = 12 % 0-4 H 56338-8) EOS % (test code = 5 % 0-3 H 20101-1) ANC (test code = 2.75 10*3/uL 1.99-6.95 753-4) Lab Interpretation Abnormal (test code = 12783-5) [facility] [id number] 20:40:44 Test Item Value Reference Interpretation Comments Range TROPONIN I (test 0.009 ng/mL See_Comment [Automated code = 5140945060) message] The system which generated this result [...] biotin. Lab Interpretation Normal (test code = 03938-6) [facility] (41311)2021-08-31 20:29:46 Test Item Value Reference Range Interpretation Comments NA (test code = 137 mmol/L 135-145 4131412532) K (test code = 5.0 mmol/L 3.5-5.0 6478267504) CL (test code = 101 mmol/L 98-108 4824235890) CO2 TOTAL (test code = 25 mmol/L 23-31 9637854669) AGAP (test code = 2-16 0698498781) BUN (test code = 14 mg/dL 7-23 5621612720) GLUCOSE (test code = 113 mg/dL 70-110 H 9476533236) CREATININE (test code = 0.82 mg/dL 0.60-1.25 1119435415) TOTAL BILI (test code = 0.4 mg/dL 0.1-1.1 3919703844) CALCIUM (test code = 9.4 mg/dL 8.6-10.6 2709009220) T PROTEIN (test code = 7.5 g/dL 6.3-8.2 9006492089) ALBUMIN (test code = 4.5 g/dL 3.5-5.0 1274725427) ALK PHOS (test code = 101 U/L 34-122 2601840142) ALTv (test code = 15 U/L 5-50 1742-6) AST(SGOT) (test code = 25 U/L 13-40 9832273672) eGFR (test code = mL/min/1.73m2 9405920828) ANDREA (test code = ANDREA) Association of [...] tests). Lab Interpretation Abnormal (test code = 96284-0) [facility]29:06 Test Item Value Reference Range Interpretation Comments LIPASE (test code = 8655022669) 100 U/L 0-220 Lab Interpretation (test code = Normal 86330-0) [facility] HospitalLactic Acid Whole [id number] 20:17:03 Test Item Value Reference Range Interpretation Comments LACTIC ACID (test code = 1.45 mmol/L 0.50-2.20 5555745014) Lab Interpretation (test code = Normal 74840-1) [facility] [id number] 23:16:00 Test Item Value Reference Range Interpretation Comments HS Troponin I 1 Hr (test code = HS 18 Troponin I [address] H[address]) [facility] [id number] 23:16:00 Test Item Value Reference Range Interpretation Comments HS Troponin I 0 to 1 Hour Delta (test 2 1 code = HS Troponin I 0 to 1 Hour Delta) [facility] [id number] 23:16:00 Test Item Value Reference Range Interpretation Comments Glucose Lvl (test code = Glucose Lvl) 98 70-99 [facility] [id number] 23:16:00 Test Item Value Reference Range Interpretation Comments BUN (test code = BUN) 19 7-22 [facility] [id number] 23:16:00 Test Item Value Reference Range Interpretation Comments Creatinine Lvl (test code = Creatinine 0.89 0.50-1.40 Lvl) [facility] [id number] 23:16:00 Test Item Value Reference Range Interpretation Comments Sodium Lvl (test code = Sodium Lvl) 134 135-145 [facility] [id number] 23:16:00 Test Item Value Reference Range Interpretation Comments Potassium Lvl (test code = Potassium 4.1 3.5-5.1 Lvl) [facility] [id number] 23:16:00 Test Item Value Reference Range Interpretation Comments Chloride Lvl (test code = Chloride Lvl) 105 95-109 [facility] [id number] 23:16:00 Test Item Value Reference Range Interpretation Comments CO2 (test code = CO2) 25 24-32 [facility]2022-03-25 23:16:00 Test Item Value Reference Range Interpretation Comments Calcium Lvl (test code = Calcium Lvl) 9.0 8.5-10.5 [place] [id number] 23:16:00 Test Item Value Reference Range Interpretation Comments AGAP (test code = AGAP) 8.1 10.0-20.0 [facility]2022-03-25 23:16:00 Test Item Value Reference Range Interpretation Comments eGFR (test code = eGFR) 86 [facility] [id number] 23:16:00 Test Item Value Reference Range Interpretation Comments HS Troponin I 1 Hr (test code = HS 18 Troponin I 1 Hr) [facility] [id number] 23:16:00 Test Item Value Reference Range Interpretation Comments HS Troponin I 0 to 1 Hour Delta (test 2 1 code = HS Troponin I 0 to 1 Hour Delta) [facility]2022-03-25 23:16:00 Test Item Value Reference Range Interpretation Comments Glucose Lvl (test code = Glucose Lvl) 98 70-99 [facility]2022-03-25 23:16:00 Test Item Value Reference Range Interpretation Comments BUN (test code = BUN) 19 7-22 [facility]2022-03-25 23:16:00 Test Item Value Reference Range Interpretation Comments Creatinine Lvl (test code = Creatinine 0.89 0.50-1.40 Lvl) [facility]2022-03-25 23:16:00 Test Item Value Reference Range Interpretation Comments Sodium Lvl (test code = Sodium Lvl) 134 135-145 [facility] [id number] 23:16:00 Test Item Value Reference Range Interpretation Comments Potassium Lvl (test code = Potassium 4.1 3.5-5.1 Lvl) [place] [id number] 23:16:00 Test Item Value Reference Range Interpretation Comments Chloride Lvl (test code = Chloride Lvl) 105 95-109 [place] 591442-03-25 23:16:00 Test Item Value Reference Range Interpretation Comments CO2 (test code = CO2) 25 24-32 [place] 591442-03-25 23:16:00 Test Item Value Reference Range Interpretation Comments Calcium Lvl (test code = Calcium Lvl) 9.0 8.5-10.5 [facility]2022-03-25 23:16:00 Test Item Value Reference Range Interpretation Comments AGAP (test code = AGAP) 8.1 10.0-20.0 [facility]2022-03-25 23:16:00 Test Item Value Reference Range Interpretation Comments eGFR (test code = eGFR) 86 [facility] [id number] 23:16:00 Test Item Value Reference Range Interpretation Comments HS Troponin I 1 Hr (test code = HS 18 Troponin I 1 Hr) [facility] [id number] 23:16:00 Test Item Value Reference Range Interpretation Comments HS Troponin I 0 to 1 Hour Delta (test 2 1 code = HS Troponin I 0 to 1 Hour Delta) [facility]2022-03-25 23:16:00 Test Item Value Reference Range Interpretation Comments Glucose Lvl (test code = Glucose Lvl) 98 70-99 [facility] [id number] 23:16:00 Test Item Value Reference Range Interpretation Comments BUN (test code = BUN) 19 7-22 [facility] [id number] 23:16:00 Test Item Value Reference Range Interpretation Comments Creatinine Lvl (test code = Creatinine 0.89 0.50-1.40 Lvl) [facility]2022-03-25 23:16:00 Test Item Value Reference Range Interpretation Comments Sodium Lvl (test code = Sodium Lvl) 134 135-145 [facility] [id number] 23:16:00 Test Item Value Reference Range Interpretation Comments Potassium Lvl (test code = Potassium 4.1 3.5-5.1 Lvl) [facility] [id number] 23:16:00 Test Item Value Reference Range Interpretation Comments Chloride Lvl (test code = Chloride Lvl) 105 95-109 [facility] [id number] 23:16:00 Test Item Value Reference Range Interpretation Comments CO2 (test code = CO2) 25 24-32 [facility]2022-03-25 23:16:00 Test Item Value Reference Range Interpretation Comments Calcium Lvl (test code = Calcium Lvl) 9.0 8.5-10.5 [facility] [id number] 23:16:00 Test Item Value Reference Range Interpretation Comments AGAP (test code = AGAP) 8.1 10.0-20.0 [facility] [employer] [id number] 23:16:00 Test Item Value Reference Range Interpretation Comments eGFR (test code = eGFR) 86 [facility] [employer] [id number] 23:16:00 Test Item Value Reference Range Interpretation Comments HS Troponin I 1 Hr (test code = HS 18 Troponin I 1 Hr) [facility] [id number] 23:16:00 Test Item Value Reference Range Interpretation Comments HS Troponin I 0 to 1 Hour Delta (test 2 1 code = HS Troponin I 0 to 1 Hour Delta) [facility] [employer] [id number] 23:16:00 Test Item Value Reference Range Interpretation Comments Glucose Lvl (test code = Glucose Lvl) 98 70-99 [facility] [id number] 23:16:00 Test Item Value Reference Range Interpretation Comments BUN (test code = BUN) 19 7-22 [facility] [employer] [id number] 23:16:00 Test Item Value Reference Range Interpretation Comments Creatinine Lvl (test code = Creatinine 0.89 0.50-1.40 Lvl) [facility] [employer] [id number] 23:16:00 Test Item Value Reference Range Interpretation Comments Sodium Lvl (test code = Sodium Lvl) 134 135-145 [facility] [employer] [id number] 23:16:00 Test Item Value Reference Range Interpretation Comments Potassium Lvl (test code = Potassium 4.1 3.5-5.1 Lvl) [facility] [employer] [id number] 23:16:00 Test Item Value Reference Range Interpretation Comments Chloride Lvl (test code = Chloride Lvl) 105 95-109 [facility] [id number] 23:16:00 Test Item Value Reference Range Interpretation Comments CO2 (test code = CO2) 25 24-32 [facility] [employer] [id number] 23:16:00 Test Item Value Reference Range Interpretation Comments Calcium Lvl (test code = Calcium Lvl) 9.0 8.5-10.5 [facility] [employer] [id number] 23:16:00 Test Item Value Reference Range Interpretation Comments AGAP (test code = AGAP) 8.1 10.0-20.0 [facility] [id number] 23:16:00 Test Item Value Reference Range Interpretation Comments eGFR (test code = eGFR) 86 [facility] [id number] 23:16:00 Test Item Value Reference Range Interpretation Comments HS Troponin I 1 Hr (test code = HS 18 Troponin I 1 Hr) [facility] [id number] 23:16:00 Test Item Value Reference Range Interpretation Comments HS Troponin I 0 to 1 Hour Delta (test 2 1 code = HS Troponin I 0 to 1 Hour Delta) [facility] [id number] 23:16:00 Test Item Value Reference Range Interpretation Comments Glucose Lvl (test code = Glucose Lvl) 98 70-99 [facility] [id number] 23:16:00 Test Item Value Reference Range Interpretation Comments BUN (test code = BUN) 19 7-22 [place] [id number] 23:16:00 Test Item Value Reference Range Interpretation Comments Creatinine Lvl (test code = Creatinine 0.89 0.50-1.40 Lvl) [facility] [id number] 23:16:00 Test Item Value Reference Range Interpretation Comments Sodium Lvl (test code = Sodium Lvl) 134 135-145 [facility] [id number] 23:16:00 Test Item Value Reference Range Interpretation Comments Potassium Lvl (test code = Potassium 4.1 3.5-5.1 Lvl) [facility] [id number] 23:16:00 Test Item Value Reference Range Interpretation Comments Chloride Lvl (test code = Chloride Lvl) 105 95-109 [facility] [id number] 23:16:00 Test Item Value Reference Range Interpretation Comments CO2 (test code = CO2) 25 24-32 [facility] [id number] 23:16:00 Test Item Value Reference Range Interpretation Comments Calcium Lvl (test code = Calcium Lvl) 9.0 8.5-10.5 [facility] [id number] 23:16:00 Test Item Value Reference Range Interpretation Comments AGAP (test code = AGAP) 8.1 10.0-20.0 [facility] [id number] 23:16:00 Test Item Value Reference Range Interpretation Comments eGFR (test code = eGFR) 86 [facility] [id number] 22:08:00 Test Item Value Reference Range Interpretation Comments HS Troponin I Baseline (test code = HS 16 Troponin I Baseline) [id number] 22:08:00 Test Item Value Reference Range Interpretation Comments Coronavirus (COVID-19) Not Detected (05/30/21 PAULA (test code = 5:08 PM) Coronavirus (COVID-19) PAULA) [facility]2022-03-25 22:08:00 Test Item Value Reference Range Interpretation Comments HS Troponin I Baseline (test code = HS 16 Troponin I Baseline) [facility] [id number] 22:08:00 Test Item Value Reference Range Interpretation Comments Coronavirus (COVID-19) Not Detected (05/30/21 PAULA (test code = 5:08 PM) Coronavirus (COVID-19) PAULA) [facility] [id number] 22:08:00 Test Item Value Reference Range Interpretation Comments HS Troponin I Baseline (test code = HS 16 Troponin I Baseline) [facility] [id number] 22:08:00 Test Item Value Reference Range Interpretation Comments Coronavirus (COVID-19) Not Detected (05/30/21 PAULA (test code = 5:08 PM) Coronavirus (COVID-19) PAULA) [facility]2022-03-25 22:08:00 Test Item Value Reference Range Interpretation Comments HS Troponin I Baseline (test code = HS 16 Troponin I Baseline) [place] [id number] 22:08:00 Test Item Value Reference Range Interpretation Comments Coronavirus (COVID-19) Not Detected (05/30/21 PAULA (test code = 5:08 PM) Coronavirus (COVID-19) PAULA) [facility] [id number] 22:08:00 Test Item Value Reference Range Interpretation Comments HS Troponin I Baseline (test code = HS 16 Troponin I Baseline) [place] [id number] 22:08:00 Test Item Value Reference Range Interpretation Comments Coronavirus (COVID-19) Not Detected (05/30/21 PAULA (test code = 5:08 PM) Coronavirus (COVID-19) PAULA) [facility] [id number] 16:52:00 Test Item Value Reference Range Interpretation Comments U Amph Scr (test code Negative *NA*(04/06/21 = U Amph Scr) 10:52 AM) [facility] [id number] 16:52:00 Test Item Value Reference Range Interpretation Comments U Vy Scr (test code Negative *NA*(04/06/21 = U Vy Scr) 10:52 AM) [facility] [id number] 16:52:00 Test Item Value Reference Range Interpretation Comments U Benzodiaz Scr (test Negative *NA*(04/06/21 code = U Benzodiaz Scr) 10:52 AM) [facility] [id number] 16:52:00 Test Item Value Reference Range Interpretation Comments U Cocaine Scr (test Negative *NA*(04/06/21 code = U Cocaine Scr) 10:52 AM) [facility] [id number] 16:52:00 Test Item Value Reference Range Interpretation Comments U Cannab Scr (test Negative *NA*(04/06/21 code = U Cannab Scr) 10:52 AM) [facility] [id number] 16:52:00 Test Item Value Reference Range Interpretation Comments U Opiate Scr (test Negative *NA*(04/06/21 code = U Opiate Scr) 10:52 AM) [facility] [id number] 16:52:00 Test Item Value Reference Range Interpretation Comments U Phencyclidine Scr (test Negative code = U Phencyclidine *NA*(04/06/21 10:52 Scr) AM) [facility] [id number] 16:52:00 Test Item Value Reference Range Interpretation Comments UDS Note (test code = See Note (04/06/21 10:52 UDS Note) AM) [facility] [id number] 16:52:00 Test Item Value Reference Range Interpretation Comments U Amph Scr (test code Negative *NA*(04/06/21 = U Amph Scr) 10:52 AM) [facility] [id number] 16:52:00 Test Item Value Reference Range Interpretation Comments U Vy Scr (test code Negative *NA*(04/06/21 = U Vy Scr) 10:52 AM) [facility] [id number] 16:52:00 Test Item Value Reference Range Interpretation Comments U Benzodiaz Scr (test Negative *NA*(04/06/21 code = U Benzodiaz Scr) 10:52 AM) [facility] [id number] 16:52:00 Test Item Value Reference Range Interpretation Comments U Cocaine Scr (test Negative *NA*(04/06/21 code = U Cocaine Scr) 10:52 AM) [facility] [id number] 16:52:00 Test Item Value Reference Range Interpretation Comments U Cannab Scr (test Negative *NA*(04/06/21 code = U Cannab Scr) 10:52 AM) [facility] [id number] 16:52:00 Test Item Value Reference Range Interpretation Comments U Opiate Scr (test Negative *NA*(04/06/21 code = U Opiate Scr) 10:52 AM) [facility] [id number] 16:52:00 Test Item Value Reference Range Interpretation Comments U Phencyclidine Scr (test Negative code = U Phencyclidine *NA*(04/06/21 10:52 Scr) AM) [facility] [id number] 16:52:00 Test Item Value Reference Range Interpretation Comments UDS Note (test code = See Note (04/06/21 10:52 UDS Note) AM) [facility] [id number] 16:52:00 Test Item Value Reference Range Interpretation Comments U Amph Scr (test code Negative *NA*(04/06/21 = U Amph Scr) 10:52 AM) [facility] [id number] 16:52:00 Test Item Value Reference Range Interpretation Comments U Vy Scr (test code Negative *NA*(04/06/21 = U Vy Scr) 10:52 AM) [facility] [id number] 16:52:00 Test Item Value Reference Range Interpretation Comments U Benzodiaz Scr (test Negative *NA*(04/06/21 code = U Benzodiaz Scr) 10:52 AM) [facility] [id number] 16:52:00 Test Item Value Reference Range Interpretation Comments U Cocaine Scr (test Negative *NA*(04/06/21 code = U Cocaine Scr) 10:52 AM) [facility] [id number] 16:52:00 Test Item Value Reference Range Interpretation Comments U Cannab Scr (test Negative *NA*(04/06/21 code = U Cannab Scr) 10:52 AM) [facility] [id number] 16:52:00 Test Item Value Reference Range Interpretation Comments U Opiate Scr (test Negative *NA*(04/06/21 code = U Opiate Scr) 10:52 AM) [facility] [id number] 16:52:00 Test Item Value Reference Range Interpretation Comments U Phencyclidine Scr (test Negative code = U Phencyclidine *NA*(04/06/21 10:52 Scr) AM) [facility] [id number] 16:52:00 Test Item Value Reference Range Interpretation Comments UDS Note (test code = See Note (04/06/21 10:52 UDS Note) AM) [facility] [id number] 16:52:00 Test Item Value Reference Range Interpretation Comments U Amph Scr (test code Negative *NA*(04/06/21 = U Amph Scr) 10:52 AM) [facility] [id number] 16:52:00 Test Item Value Reference Range Interpretation Comments U Vy Scr (test code Negative *NA*(04/06/21 = U Vy Scr) 10:52 AM) [facility] [id number] 16:52:00 Test Item Value Reference Range Interpretation Comments U Benzodiaz Scr (test Negative *NA*(04/06/21 code = U Benzodiaz Scr) 10:52 AM) [facility] [id number] 16:52:00 Test Item Value Reference Range Interpretation Comments U Cocaine Scr (test Negative *NA*(04/06/21 code = U Cocaine Scr) 10:52 AM) [facility] [id number] 16:52:00 Test Item Value Reference Range Interpretation Comments U Cannab Scr (test Negative *NA*(04/06/21 code = U Cannab Scr) 10:52 AM) [facility] [id number] 16:52:00 Test Item Value Reference Range Interpretation Comments U Opiate Scr (test Negative *NA*(04/06/21 code = U Opiate Scr) 10:52 AM) [facility] [id number] 16:52:00 Test Item Value Reference Range Interpretation Comments U Phencyclidine Scr (test Negative code = U Phencyclidine *NA*(04/06/21 10:52 Scr) AM) [facility] [id number] 16:52:00 Test Item Value Reference Range Interpretation Comments UDS Note (test code = See Note (04/06/21 10:52 UDS Note) AM) [facility] [id number] 16:52:00 Test Item Value Reference Range Interpretation Comments U Amph Scr (test code Negative *NA*(04/06/21 = U Amph Scr) 10:52 AM) [facility] [id number] 16:52:00 Test Item Value Reference Range Interpretation Comments U Vy Scr (test code Negative *NA*(04/06/21 = U Vy Scr) 10:52 AM) [facility] [id number] 16:52:00 Test Item Value Reference Range Interpretation Comments U Benzodiaz Scr (test Negative *NA*(04/06/21 code = U Benzodiaz Scr) 10:52 AM) [facility] [id number] 16:52:00 Test Item Value Reference Range Interpretation Comments U Cocaine Scr (test Negative *NA*(04/06/21 code = U Cocaine Scr) 10:52 AM) [facility] [id number] 16:52:00 Test Item Value Reference Range Interpretation Comments U Cannab Scr (test Negative *NA*(04/06/21 code = U Cannab Scr) 10:52 AM) [facility] [id number] 16:52:00 Test Item Value Reference Range Interpretation Comments U Opiate Scr (test Negative *NA*(04/06/21 code = U Opiate Scr) 10:52 AM) [facility] [id number] 16:52:00 Test Item Value Reference Range Interpretation Comments U Phencyclidine Scr (test Negative code = U Phencyclidine *NA*(04/06/21 10:52 Scr) AM) [facility] [id number] 16:52:00 Test Item Value Reference Range Interpretation Comments UDS Note (test code = See Note (04/06/21 10:52 UDS Note) AM) [employer] HaloZgnggddBPILZRYXWN5275-93-64 15:00:00 Test Item Value Reference Range Interpretation Comments Coronavirus (COVID-19) Not Detected (04/06/21 PAULA (test code = 9:00 AM) Coronavirus (COVID-19) PAULA) [facility] IdsxxuwKHXBKWTBJM8266-20-86 15:00:00 Test Item Value Reference Range Interpretation Comments Coronavirus (COVID-19) Not Detected (04/06/21 PAULA (test code = 9:00 AM) Coronavirus (COVID-19) PAULA) [facility] UoqpmzzUVOHTJBECO8289-13-27 15:00:00 Test Item Value Reference Range Interpretation Comments Coronavirus (COVID-19) Not Detected (04/06/21 PAULA (test code = 9:00 AM) Coronavirus (COVID-19) PAULA) [facility] MccwuowXZNJYHNPUD2479-95-16 15:00:00 Test Item Value Reference Range Interpretation Comments Coronavirus (COVID-19) Not Detected (04/06/21 APULA (test code = 9:00 AM) Coronavirus (COVID-19) PAULA) [facility]wohsdyFAVENCPART9324-10-80 15:00:00 Test Item Value Reference Range Interpretation Comments Coronavirus (COVID-19) Not Detected (04/06/21 PAULA (test code = 9:00 AM) Coronavirus (COVID-19) PAULA) [facility] [id number] 14:17:00 Test Item Value Reference Range Interpretation Comments ABO/Rh (test code = ABO/Rh) O POS [facility] [employer] [id number] 14:17:00 Test Item Value Reference Range Interpretation Comments Antibody Scrn (test Negative (04/06/21 8:17 code = Antibody Scrn) AM) [facility] [employer] [id number] 14:17:00 Test Item Value Reference Range Interpretation Comments BNP (test code = BNP) 43 [facility] [employer]2022-01-30 14:17:00 Test Item Value Reference Range Interpretation Comments HS Troponin I (test code = HS Troponin 24 I) [employer] [id number] 14:17:00 Test Item Value Reference Range Interpretation Comments Glucose Lvl (test code = Glucose Lvl) 99 70-99 [facility] [employer] [id number] 14:17:00 Test Item Value Reference Range Interpretation Comments BUN (test code = BUN) 18 7-22 [place] 591442-01-30 14:17:00 Test Item Value Reference Range Interpretation Comments Creatinine Lvl (test code = Creatinine 0.88 0.50-1.40 Lvl) [place] 591442-01-30 14:17:00 Test Item Value Reference Range Interpretation Comments Sodium Lvl (test code = Sodium Lvl) 132 135-145 [place] 591442-01-30 14:17:00 Test Item Value Reference Range Interpretation Comments Potassium Lvl (test code = Potassium 3.9 3.5-5.1 Lvl) [place] 591442-01-30 14:17:00 Test Item Value Reference Range Interpretation Comments Chloride Lvl (test code = Chloride Lvl) 103 95-109 [facility]2022-01-30 14:17:00 Test Item Value Reference Range Interpretation Comments CO2 (test code = CO2) 24 24-32 [place] 591442-01-30 14:17:00 Test Item Value Reference Range Interpretation Comments Calcium Lvl (test code = Calcium Lvl) 9.3 8.5-10.5 [facility]2022-01-30 14:17:00 Test Item Value Reference Range Interpretation Comments AGAP (test code = AGAP) 8.9 10.0-20.0 [facility]2022-01-30 14:17:00 Test Item Value Reference Range Interpretation Comments eGFR (test code = eGFR) 86 [facility]2022-01-30 14:17:00 Test Item Value Reference Range Interpretation Comments Total Protein (test code = Total 7.9 6.4-8.4 Protein) [place] 591442-01-30 14:17:00 Test Item Value Reference Range Interpretation Comments Albumin Lvl (test code = Albumin Lvl) 3.6 3.5-5.0 [facility]2022-01-30 14:17:00 Test Item Value Reference Range Interpretation Comments ALT (test code = ALT) 25 See_Comment [Auto mated message] The system which ge nerated this result transmit jw reference range : <=65. The reference range was not used to interpr et this result as mateo l/abnormal. [place] 591442-01-30 14:17:00 Test Item Value Reference Range Interpretation Comments AST (test code = AST) 30 See_Comment [Auto mated message] The system which ge nerated this result transmit jw reference range : <=37. The reference range was not used to interpr et this result as mateo l/abnormal. [place] 591442-01-30 14:17:00 Test Item Value Reference Range Interpretation Comments Alk Phos (test code = Alk Phos) 103 39-136 [place] 591442-01-30 14:17:00 Test Item Value Reference Range Interpretation Comments Bili Total (test code = Bili Total) 0.6 0.2-1.3 [place] 591442-01-30 14:17:00 Test Item Value Reference Range Interpretation Comments Bili Direct (test code 0.1 See_Comment [Aut omated message] The = Bili Direct) system which generated this result tra nsmitted reference range : <=0.3. The reference r bret was not used to int erpret this result as mateo l/abnormal. [place] 591442-01-30 14:17:00 Test Item Value Reference Range Interpretation Comments Bili Indirect (test 0.5 See_Comment [Automa jw message] The code = Bili Indirect) system which generated this result tra nsmitted reference range : <=1.0. The reference r bret was not used to int erpret this result as normal/abnormal . [place] 591442-01-30 14:17:00 Test Item Value Reference Range Interpretation Comments Globulin (test code = Globulin) 4.3 2.7-4.2 [place] 591442-01-30 14:17:00 Test Item Value Reference Range Interpretation Comments A/G Ratio (test code = A/G Ratio) 0.8 1 0.7-1.6 [place] [address]-01-30 14:17:00 Test Item Value Reference Range Interpretation Comments Magnesium Lvl (test code = Magnesium 2.1 1.8-2.4 Lvl) [place] [address]-01-30 14:17:00 Test Item Value Reference Range Interpretation Comments Phosphorus (test code = Phosphorus) 2.8 2.5-4.5 [place] 701252-01-30 14:17:00 Test Item Value Reference Range Interpretation Comments WBC (test code = WBC) 4.6 3.7-10.4 [facility]mkFLBRIHMELL5475-60-95 14:17:00 Test Item Value Reference Range Interpretation Comments RBC (test code = RBC) 3.78 4.70-6.10 [facility] HospitalPuvsobdHJDPYPIYQY8782-21-39 14:17:00 Test Item Value Reference Range Interpretation Comments Hgb (test code = Hgb) 13.1 14.0-18.0 [place] 701252-01-30 14:17:00 Test Item Value Reference Range Interpretation Comments Hct (test code = Hct) 37.8 42.0-54.0 [facility]AprljgfHPJTYDBYKD9989-11-51 14:17:00 Test Item Value Reference Range Interpretation Comments MCV (test code = MCV) 99.9 80.0-94.0 [place] 701252-01-30 14:17:00 Test Item Value Reference Range Interpretation Comments MCH (test code = MCH) 34.5 pg 27.0-31.0 [facility] HospitalXguceecUHKYCFXEFJ9129-41-58 14:17:00 Test Item Value Reference Range Interpretation Comments MCHC (test code = MCHC) 34.5 32.0-36.0 [facility] HospitalHwhryfwOORSEUXRKZ8008-07-09 14:17:00 Test Item Value Reference Range Interpretation Comments RDW (test code = RDW) 16.8 11.5-14.5 [facility] HospitalZjunjuwJLCARHQNRW1833-72-34 14:17:00 Test Item Value Reference Range Interpretation Comments Platelet (test code = Platelet) 181 133-450 [facility] HospitalYlwquxhJTPLIONQKK5946-20-01 14:17:00 Test Item Value Reference Range Interpretation Comments MPV (test code = MPV) 9.7 7.4-10.4 [facility] HospitalIsfekmtRDJCINVKDS2528-28-75 14:17:00 Test Item Value Reference Range Interpretation Comments PT (test code = PT) 13.8 s 12.0-14.7 [facility] HospitalOfzngcfOIXQNMDRSP5232-90-08 14:17:00 Test Item Value Reference Range Interpretation Comments INR (test code = INR) 1.07 1 0.85-1.17 [place] 701252-01-30 14:17:00 Test Item Value Reference Range Interpretation Comments PTT (test code = PTT) 34.6 s 22.9-35.8 [place] 701252-01-30 14:17:00 Test Item Value Reference Range Interpretation Comments Neutrophils # (test code = Neutrophils 2.7 1.5-8.1 #) [place] 701252-01-30 14:17:00 Test Item Value Reference Range Interpretation Comments Lymphocytes # (test code = Lymphocytes 1.2 1.0-5.5 #) [place] 701252-01-30 14:17:00 Test Item Value Reference Range Interpretation Comments Monocytes # (test code 0.5 See_Comment [Aut omated message] The = Monocytes #) system which generated this result tra nsmitted reference range : <=0.8. The reference r bret was not used to int erpret this result as normal/abnormal . [place] 701252-01-30 14:17:00 Test Item Value Reference Range Interpretation Comments Eosinophils # (test code 0.3 See_Comment [A utomated message] The = Eosinophils #) system whic h generated this result tra nsmitted reference range : <=0.5. The reference r bret was not used to int erpret this result as normal/abnormal . [facility] HospitalVmywmwvBJLDIKFKET3980-88-80 14:17:00 Test Item Value Reference Range Interpretation Comments Segs (test code = Segs) 57.0 45.0-75.0 [place] 701252-01-30 14:17:00 Test Item Value Reference Range Interpretation Comments Bands (test code = 1.0 See_Comment [Automat ed message] The Bands) system which ge nerated this result transmit jw reference range : <=11.0. The reference r bret was not used to interpr et this result as mateo l/abnormal. [place] 701252-01-30 14:17:00 Test Item Value Reference Range Interpretation Comments Lymphocytes (test code = Lymphocytes) 26.0 20.0-40.0 [place] 701252-01-30 14:17:00 Test Item Value Reference Range Interpretation Comments Monocytes (test code = Monocytes) 10.0 2.0-12.0 [place] 701252-01-30 14:17:00 Test Item Value Reference Range Interpretation Comments Eosinophils (test code = 6.0 See_Comment [A utomated message] The Eosinophils) system which ge nerated this result tra nsmitted reference range : <=4.0. The reference r bret was not used to int erpret this result as normal/abnormal . [facility] HospitalJroruicOBRPPXWGOB8614-66-01 14:17:00 Test Item Value Reference Range Interpretation Comments Atypical Lymphs (test code = Atypical 0.0 Lymphs) [facility] HospitalKtrnaknXSBFXLKODO9644-50-32 14:17:00 Test Item Value Reference Range Interpretation Comments Anisocyte (test code = 1+ *ABN*(04/06/21 Anisocyte) 8:17 AM) [facility] HospitalNyssttwXQWEPFJIXN1912-14-42 14:17:00 Test Item Value Reference Range Interpretation Comments Macrocyte (test code = 1+ *ABN*(04/06/21 Macrocyte) 8:17 AM) [facility] HospitalGeseoxpAQQKQGQSAA5885-77-01 14:17:00 Test Item Value Reference Range Interpretation Comments Large Plt (test code Moderate *ABN*(04/06/21 = Large Plt) 8:17 AM) [facility] HospitalKcfusbjNTTUWQCTDU4249-17-85 14:17:00 Test Item Value Reference Range Interpretation Comments Giant Plt (test code = Giant Plt) [facility]ZlmaszlMKYRGK7587-84-48 14:17:00 Test Item Value Reference Range Interpretation Comments Trig (test code = Trig) 138 [facility] CentralDokopzlPXDLHK4642-70-92 14:17:00 Test Item Value Reference Range Interpretation Comments Chol (test code = Chol) 162 [facility] HospitalLxtjwatDQFXYI3293-17-44 14:17:00 Test Item Value Reference Range Interpretation Comments HDL (test code = HDL) 37 [facility] CentralVomavjsDWXZWH2664-78-60 14:17:00 Test Item Value Reference Range Interpretation Comments CHD Risk (test code = CHD Risk) 4.38 1 4.00-7.30 [facility] CentralFxvbfnhZAXEZA4243-29-07 14:17:00 Test Item Value Reference Range Interpretation Comments LDL (Calculated) (test code = LDL 97 (Calculated)) [facility] CentralKowbmnyQYLMFN5466-93-41 14:17:00 Test Item Value Reference Range Interpretation Comments VLDL (test code = VLDL) 28 1 [facility] CentralPARATHYROID [id number] 14:17:00 Test Item Value Reference Range Interpretation Comments Ca Ion WB (test code = Ca Ion WB) 1.21 1.05-1.25 [facility] CentralPARATHYROID [id number] 14:17:00 Test Item Value Reference Range Interpretation Comments Ca Norm WB (test code = Ca Norm WB) 1.17 1.05-1.25 [facility] GYUFWFKRA3027-89-33 14:17:00 Test Item Value Reference Range Interpretation Comments Hgb A1C (test code = Hgb A1C) 5.6 [facility] [employer] [id number] 14:17:00 Test Item Value Reference Range Interpretation Comments ABO/Rh (test code = ABO/Rh) O POS [facility] [employer] [id number] 14:17:00 Test Item Value Reference Range Interpretation Comments Antibody Scrn (test Negative (04/06/21 8:17 code = Antibody Scrn) AM) [facility] AntonioPAKAC EVPKAZE5154-08-93 14:17:00 Test Item Value Reference Range Interpretation Comments BNP (test code = BNP) 43 [facility] Antonio[facility] TKZPMKW2756-30-99 14:17:00 Test Item Value Reference Range Interpretation Comments HS Troponin I (test code = HS Troponin 24 I) [facility] [employer] [id number] 14:17:00 Test Item Value Reference Range Interpretation Comments Glucose Lvl (test code = Glucose Lvl) 99 70-99 [facility] [employer] [id number] 14:17:00 Test Item Value Reference Range Interpretation Comments BUN (test code = BUN) 18 7-22 [facility] [employer] [id number] 14:17:00 Test Item Value Reference Range Interpretation Comments Creatinine Lvl (test code = Creatinine 0.88 0.50-1.40 Lvl) [facility] [employer] [id number] 14:17:00 Test Item Value Reference Range Interpretation Comments Sodium Lvl (test code = Sodium Lvl) 132 135-145 [facility] [employer] [id number] 14:17:00 Test Item Value Reference Range Interpretation Comments Potassium Lvl (test code = Potassium 3.9 3.5-5.1 Lvl) [facility] [employer]2022-01-30 14:17:00 Test Item Value Reference Range Interpretation Comments Chloride Lvl (test code = Chloride Lvl) 103 95-109 [facility] [place] 7504[place]-01-30 14:17:00 Test Item Value Reference Range Interpretation Comments CO2 (test code = CO2) 24 24-32 [place] 591442-01-30 14:17:00 Test Item Value Reference Range Interpretation Comments Calcium Lvl (test code = Calcium Lvl) 9.3 8.5-10.5 [place] 591442-01-30 14:17:00 Test Item Value Reference Range Interpretation Comments AGAP (test code = AGAP) 8.9 10.0-20.0 [place] 591442-01-30 14:17:00 Test Item Value Reference Range Interpretation Comments eGFR (test code = eGFR) 86 [place] 591442-01-30 14:17:00 Test Item Value Reference Range Interpretation Comments Total Protein (test code = Total 7.9 6.4-8.4 Protein) [place] 591442-01-30 14:17:00 Test Item Value Reference Range Interpretation Comments Albumin Lvl (test code = Albumin Lvl) 3.6 3.5-5.0 [place] 591442-01-30 14:17:00 Test Item Value Reference Range Interpretation Comments ALT (test code = ALT) 25 See_Comment [Auto mated message] The system which ge nerated this result transmit jw reference range : <=65. The reference range was not used to interpr et this result as mateo l/abnormal. [place] 591442-01-30 14:17:00 Test Item Value Reference Range Interpretation Comments AST (test code = AST) 30 See_Comment [Auto mated message] The system which ge nerated this result transmit jw reference range : <=37. The reference range was not used to interpr et this result as mateo l/abnormal. [place] 591442-01-30 14:17:00 Test Item Value Reference Range Interpretation Comments Alk Phos (test code = Alk Phos) 103 39-136 [place] 591442-01-30 14:17:00 Test Item Value Reference Range Interpretation Comments Bili Total (test code = Bili Total) 0.6 0.2-1.3 [place] 591442-01-30 14:17:00 Test Item Value Reference Range Interpretation Comments Bili Direct (test code 0.1 See_Comment [Aut omated message] The = [employer]) system which generated this result tra nsmitted reference range : <=0.3. The reference r bret was not used to int erpret this result as mateo l/abnormal. [place] 591442-01-30 14:17:00 Test Item Value Reference Range Interpretation Comments Bili Indirect (test 0.5 See_Comment [Automa jw message] The code = Bili Indirect) system which generated this result tra nsmitted reference range : <=1.0. The reference r bret was not used to int erpret this result as normal/abnormal . [place] 591442-01-30 14:17:00 Test Item Value Reference Range Interpretation Comments Globulin (test code = Globulin) 4.3 2.7-4.2 [place] [address]-01-30 14:17:00 Test Item Value Reference Range Interpretation Comments A/G Ratio (test code = A/G Ratio) 0.8 1 0.7-1.6 [place] [address]-01-30 14:17:00 Test Item Value Reference Range Interpretation Comments Magnesium Lvl (test code = Magnesium 2.1 1.8-2.4 Lvl) [place] 591442-01-30 14:17:00 Test Item Value Reference Range Interpretation Comments Phosphorus (test code = Phosphorus) 2.8 2.5-4.5 [place] [address]-01-30 14:17:00 Test Item Value Reference Range Interpretation Comments WBC (test code = WBC) 4.6 3.7-10.4 [place] [address]-01-30 14:17:00 Test Item Value Reference Range Interpretation Comments RBC (test code = RBC) 3.78 4.70-6.10 [place] [address]-01-30 14:17:00 Test Item Value Reference Range Interpretation Comments Hgb (test code = Hgb) 13.1 14.0-18.0 [place] [address]-01-30 14:17:00 Test Item Value Reference Range Interpretation Comments Hct (test code = Hct) 37.8 42.0-54.0 [place] [address]-01-30 14:17:00 Test Item Value Reference Range Interpretation Comments MCV (test code = MCV) 99.9 80.0-94.0 [place] [address]-01-30 14:17:00 Test Item Value Reference Range Interpretation Comments MCH (test code = MCH) 34.5 pg 27.0-31.0 [place] 701252-01-30 14:17:00 Test Item Value Reference Range Interpretation Comments MCHC (test code = MCHC) 34.5 32.0-36.0 [place] 701252-01-30 14:17:00 Test Item Value Reference Range Interpretation Comments RDW (test code = RDW) 16.8 11.5-14.5 [place] 701252-01-30 14:17:00 Test Item Value Reference Range Interpretation Comments Platelet (test code = Platelet) 181 133-450 [place] 701252-01-30 14:17:00 Test Item Value Reference Range Interpretation Comments MPV (test code = MPV) 9.7 7.4-10.4 [place] 701252-01-30 14:17:00 Test Item Value Reference Range Interpretation Comments PT (test code = PT) 13.8 s 12.0-14.7 [place] 701252-01-30 14:17:00 Test Item Value Reference Range Interpretation Comments INR (test code = INR) 1.07 1 0.85-1.17 [place] 701252-01-30 14:17:00 Test Item Value Reference Range Interpretation Comments PTT (test code = PTT) 34.6 s 22.9-35.8 [place] 701252-01-30 14:17:00 Test Item Value Reference Range Interpretation Comments Neutrophils # (test code = Neutrophils 2.7 1.5-8.1 #) [facility]XseaqvtUNGFWYKHVX6446-21-97 14:17:00 Test Item Value Reference Range Interpretation Comments Lymphocytes # (test code = Lymphocytes 1.2 1.0-5.5 #) [place] 701252-01-30 14:17:00 Test Item Value Reference Range Interpretation Comments Monocytes # (test code 0.5 See_Comment [Aut omated message] The = Monocytes #) system which generated this result tra nsmitted reference range : <=0.8. The reference r bret was not used to int erpret this result as normal/abnormal . [place] 701252-01-30 14:17:00 Test Item Value Reference Range Interpretation Comments Eosinophils # (test code 0.3 See_Comment [A utomated message] The = Eosinophils #) system whic h generated this result tra nsmitted reference range : <=0.5. The reference r bret was not used to int erpret this result as normal/abnormal . [place] 701252-01-30 14:17:00 Test Item Value Reference Range Interpretation Comments Segs (test code = Segs) 57.0 45.0-75.0 [place] 701252-01-30 14:17:00 Test Item Value Reference Range Interpretation Comments Bands (test code = 1.0 See_Comment [Automat ed message] The Bands) system which ge nerated this result transmit jw reference range : <=11.0. The reference r bret was not used to interpr et this result as mateo l/abnormal. [place] 701252-01-30 14:17:00 Test Item Value Reference Range Interpretation Comments Lymphocytes (test code = Lymphocytes) 26.0 20.0-40.0 [place] 701252-01-30 14:17:00 Test Item Value Reference Range Interpretation Comments Monocytes (test code = Monocytes) 10.0 2.0-12.0 [place] 701252-01-30 14:17:00 Test Item Value Reference Range Interpretation Comments Eosinophils (test code = 6.0 See_Comment [A utomated message] The Eosinophils) system which ge nerated this result tra nsmitted reference range : <=4.0. The reference r bret was not used to int erpret this result as normal/abnormal . [facility]wxtulWIPNMDXOHY9628-40-82 14:17:00 Test Item Value Reference Range Interpretation Comments Atypical Lymphs (test code = Atypical 0.0 Lymphs) [place] 701252-01-30 14:17:00 Test Item Value Reference Range Interpretation Comments Anisocyte (test code = 1+ *ABN*(04/06/21 Anisocyte) 8:17 AM) [place] [address]-01-30 14:17:00 Test Item Value Reference Range Interpretation Comments Macrocyte (test code = 1+ *ABN*(04/06/21 Macrocyte) 8:17 AM) [place] [address]-01-30 14:17:00 Test Item Value Reference Range Interpretation Comments Large Plt (test code Moderate *ABN*(04/06/21 = Large Plt) 8:17 AM) [facility] AntonioWifuvpdDOKPJWCQWW0361-35-20 14:17:00 Test Item Value Reference Range Interpretation Comments Giant Plt (test code = Giant Plt) [facility] AntonioTnndbukPCOGTT8209-99-30 14:17:00 Test Item Value Reference Range Interpretation Comments Trig (test code = Trig) 138 [facility] AntonioOqwjqghNNYZDN7861-59-59 14:17:00 Test Item Value Reference Range Interpretation Comments Chol (test code = Chol) 162 [facility] AntonioHgpsbxiMXDGHD8490-63-97 14:17:00 Test Item Value Reference Range Interpretation Comments HDL (test code = HDL) 37 [facility] AntonioLtvtpyxARFHWC7341-57-62 14:17:00 Test Item Value Reference Range Interpretation Comments CHD Risk (test code = CHD Risk) 4.38 1 4.00-7.30 [facility] WkyyrsjTEZNKT7732-18-29 14:17:00 Test Item Value Reference Range Interpretation Comments LDL (Calculated) (test code = LDL 97 (Calculated)) [facility] CentralZjibdhwCGRRXV8146-28-29 14:17:00 Test Item Value Reference Range Interpretation Comments VLDL (test code = VLDL) 28 1 [facility] AntonioannPARATHYROID QYRZTXI9422-26-47 14:17:00 Test Item Value Reference Range Interpretation Comments Ca Ion WB (test code = Ca Ion WB) 1.21 1.05-1.25 [facility] AntonioannPARATHYROID MLJYKCZ7207-00-15 14:17:00 Test Item Value Reference Range Interpretation Comments Ca Norm WB (test code = Ca Norm WB) 1.17 1.05-1.25 [facility] AntonioHycreteSPECIAL HDTPSJOMH7496-38-70 14:17:00 Test Item Value Reference Range Interpretation Comments Hgb A1C (test code = Hgb A1C) 5.6 [facility] [employer] [id number] 14:17:00 Test Item Value Reference Range Interpretation Comments ABO/Rh (test code = ABO/Rh) O POS [facility] [employer] LJLGHQH8521-01-58 14:17:00 Test Item Value Reference Range Interpretation Comments Antibody Scrn (test Negative (04/06/21 8:17 code = Antibody Scrn) AM) [facility] [id number] 14:17:00 Test Item Value Reference Range Interpretation Comments BNP (test code = BNP) 43 [facility] KAFFNGA3268-80-77 14:17:00 Test Item Value Reference Range Interpretation Comments HS Troponin I (test code = HS Troponin 24 I) [facility]2022-01-30 14:17:00 Test Item Value Reference Range Interpretation Comments Glucose Lvl (test code = Glucose Lvl) 99 70-99 [facility]2022-01-30 14:17:00 Test Item Value Reference Range Interpretation Comments BUN (test code = BUN) 18 7-22 [facility]2022-01-30 14:17:00 Test Item Value Reference Range Interpretation Comments Creatinine Lvl (test code = Creatinine 0.88 0.50-1.40 Lvl) [facility]2022-01-30 14:17:00 Test Item Value Reference Range Interpretation Comments Sodium Lvl (test code = Sodium Lvl) 132 135-145 [facility]2022-01-30 14:17:00 Test Item Value Reference Range Interpretation Comments Potassium Lvl (test code = Potassium 3.9 3.5-5.1 Lvl) [facility]2022-01-30 14:17:00 Test Item Value Reference Range Interpretation Comments Chloride Lvl (test code = Chloride Lvl) 103 95-109 [facility]2022-01-30 14:17:00 Test Item Value Reference Range Interpretation Comments CO2 (test code = CO2) 24 24-32 [facility]2022-01-30 14:17:00 Test Item Value Reference Range Interpretation Comments Calcium Lvl (test code = Calcium Lvl) 9.3 8.5-10.5 [facility]2022-01-30 14:17:00 Test Item Value Reference Range Interpretation Comments AGAP (test code = AGAP) 8.9 10.0-20.0 [facility]2022-01-30 14:17:00 Test Item Value Reference Range Interpretation Comments eGFR (test code = eGFR) 86 [facility]2022-01-30 14:17:00 Test Item Value Reference Range Interpretation Comments Total Protein (test code = Total 7.9 6.4-8.4 Protein) [place] 591442-01-30 14:17:00 Test Item Value Reference Range Interpretation Comments Albumin Lvl (test code = Albumin Lvl) 3.6 3.5-5.0 [place] 591442-01-30 14:17:00 Test Item Value Reference Range Interpretation Comments ALT (test code = ALT) 25 See_Comment [Auto mated message] The system which ge nerated this result transmit wj reference range : <=65. The reference range was not used to interpr et this result as mateo l/abnormal. [place] 591442-01-30 14:17:00 Test Item Value Reference Range Interpretation Comments AST (test code = AST) 30 See_Comment [Auto mated message] The system which ge nerated this result transmit jw reference range : <=37. The reference range was not used to interpr et this result as mateo l/abnormal. [place] [address]-01-30 14:17:00 Test Item Value Reference Range Interpretation Comments Alk Phos (test code = Alk Phos) 103 39-136 [place] 591442-01-30 14:17:00 Test Item Value Reference Range Interpretation Comments Bili Total (test code = Bili Total) 0.6 0.2-1.3 [place] 591442-01-30 14:17:00 Test Item Value Reference Range Interpretation Comments Bili Direct (test code 0.1 See_Comment [Aut omated message] The = Bili Direct) system which generated this result tra nsmitted reference range : <=0.3. The reference r bret was not used to int erpret this result as mateo l/abnormal. [place] [address]-01-30 14:17:00 Test Item Value Reference Range Interpretation Comments Bili Indirect (test 0.5 See_Comment [Automa jw message] The code = Bili Indirect) system which generated this result tra nsmitted reference range : <=1.0. The reference r bret was not used to int erpret this result as normal/abnormal . [place] 591442-01-30 14:17:00 Test Item Value Reference Range Interpretation Comments Globulin (test code = Globulin) 4.3 2.7-4.2 [place] [address]-01-30 14:17:00 Test Item Value Reference Range Interpretation Comments A/G Ratio (test code = A/G Ratio) 0.8 1 0.7-1.6 [facility]2022-01-30 14:17:00 Test Item Value Reference Range Interpretation Comments Magnesium Lvl (test code = Magnesium 2.1 1.8-2.4 Lvl) [facility]2022-01-30 14:17:00 Test Item Value Reference Range Interpretation Comments Phosphorus (test code = Phosphorus) 2.8 2.5-4.5 [place] 701252-01-30 14:17:00 Test Item Value Reference Range Interpretation Comments WBC (test code = WBC) 4.6 3.7-10.4 [place] 701252-01-30 14:17:00 Test Item Value Reference Range Interpretation Comments RBC (test code = RBC) 3.78 4.70-6.10 [place] 701252-01-30 14:17:00 Test Item Value Reference Range Interpretation Comments Hgb (test code = Hgb) 13.1 14.0-18.0 [place] 701252-01-30 14:17:00 Test Item Value Reference Range Interpretation Comments Hct (test code = Hct) 37.8 42.0-54.0 [facility]YN4737[facility]96-07 14:17:00 Test Item Value Reference Range Interpretation Comments MCV (test code = MCV) 99.9 80.0-94.0 [facility]vqldovUJPTQTXCPC2743-46-92 14:17:00 Test Item Value Reference Range Interpretation Comments MCH (test code = MCH) 34.5 pg 27.0-31.0 [facility]QtdlfeyHUGDQOZEPH0651-53-69 14:17:00 Test Item Value Reference Range Interpretation Comments MCHC (test code = MCHC) 34.5 32.0-36.0 [facility] HospitalRknuahmRJQQBZVQEJ4202-93-34 14:17:00 Test Item Value Reference Range Interpretation Comments RDW (test code = RDW) 16.8 11.5-14.5 [place] 701252-01-30 14:17:00 Test Item Value Reference Range Interpretation Comments Platelet (test code = Platelet) 181 133-450 [facility] HospitalKpowrfeYXONCSJUXT1329-52-44 14:17:00 Test Item Value Reference Range Interpretation Comments MPV (test code = MPV) 9.7 7.4-10.4 [place] 701252-01-30 14:17:00 Test Item Value Reference Range Interpretation Comments PT (test code = PT) 13.8 s 12.0-14.7 [place] 701252-01-30 14:17:00 Test Item Value Reference Range Interpretation Comments INR (test code = INR) 1.07 1 0.85-1.17 [place] 701252-01-30 14:17:00 Test Item Value Reference Range Interpretation Comments PTT (test code = PTT) 34.6 s 22.9-35.8 [place] 701252-01-30 14:17:00 Test Item Value Reference Range Interpretation Comments Neutrophils # (test code = Neutrophils 2.7 1.5-8.1 #) [place] 701252-01-30 14:17:00 Test Item Value Reference Range Interpretation Comments Lymphocytes # (test code = Lymphocytes 1.2 1.0-5.5 #) [place] 701252-01-30 14:17:00 Test Item Value Reference Range Interpretation Comments Monocytes # (test code 0.5 See_Comment [Aut omated message] The = Monocytes #) system which generated this result tra nsmitted reference range : <=0.8. The reference r bret was not used to int erpret this result as normal/abnormal . [place] 701252-01-30 14:17:00 Test Item Value Reference Range Interpretation Comments Eosinophils # (test code 0.3 See_Comment [A utomated message] The = Eosinophils #) system whic h generated this result tra nsmitted reference range : <=0.5. The reference r bret was not used to int erpret this result as normal/abnormal . [facility]TkerlalOKDAMSROCC2245-22-21 14:17:00 Test Item Value Reference Range Interpretation Comments Segs (test code = Segs) 57.0 45.0-75.0 [place] 701252-01-30 14:17:00 Test Item Value Reference Range Interpretation Comments Bands (test code = 1.0 See_Comment [Automat ed message] The Bands) system which ge nerated this result transmit jw reference range : <=11.0. The reference r bret was not used to interpr et this result as mateo l/abnormal. [facility] HospitalFrcchrhJKWRTTAKTK1836-32-41 14:17:00 Test Item Value Reference Range Interpretation Comments Lymphocytes (test code = Lymphocytes) 26.0 20.0-40.0 [place] 701252-01-30 14:17:00 Test Item Value Reference Range Interpretation Comments Monocytes (test code = Monocytes) 10.0 2.0-12.0 [place] 701252-01-30 14:17:00 Test Item Value Reference Range Interpretation Comments Eosinophils (test code = 6.0 See_Comment [A utomated message] The Eosinophils) system which ge nerated this result tra nsmitted reference range : <=4.0. The reference r bret was not used to int erpret this result as normal/abnormal . [place] 701252-01-30 14:17:00 Test Item Value Reference Range Interpretation Comments Atypical Lymphs (test code = Atypical 0.0 Lymphs) [place] 701252-01-30 14:17:00 Test Item Value Reference Range Interpretation Comments Anisocyte (test code = 1+ *ABN*(04/06/21 Anisocyte) 8:17 AM) [facility] HospitalCgjaaoqDTMEHXGHAB9875-69-06 14:17:00 Test Item Value Reference Range Interpretation Comments Macrocyte (test code = 1+ *ABN*(04/06/21 Macrocyte) 8:17 AM) [facility] HospitalSqbkjzyIKHIPGQQUQ8144-56-22 14:17:00 Test Item Value Reference Range Interpretation Comments Large Plt (test code Moderate *ABN*(04/06/21 = Large Plt) 8:17 AM) [facility] HospitalSyljmszURITVXLJAR0146-65-05 14:17:00 Test Item Value Reference Range Interpretation Comments Giant Plt (test code = Giant Plt) [facility]GksmuzlTZTREG0661-99-41 14:17:00 Test Item Value Reference Range Interpretation Comments Trig (test code = Trig) 138 [facility] HospitalEczycldKWVWGN4330-24-65 14:17:00 Test Item Value Reference Range Interpretation Comments Chol (test code = Chol) 162 [place] 549322-01-30 14:17:00 Test Item Value Reference Range Interpretation Comments HDL (test code = HDL) 37 [facility] HospitalXkxywxwDZTUKX7571-35-03 14:17:00 Test Item Value Reference Range Interpretation Comments CHD Risk (test code = CHD Risk) 4.38 1 4.00-7.30 [facility] IwsizydAALEBM9614-00-93 14:17:00 Test Item Value Reference Range Interpretation Comments LDL (Calculated) (test code = LDL 97 (Calculated)) [facility] AntonioUbtszflKHNGYE1721-77-06 14:17:00 Test Item Value Reference Range Interpretation Comments VLDL (test code = VLDL) 28 1 [facility] AntonioThe Online Back[employer] CompanyROID WDMVFZO9111-35-47 14:17:00 Test Item Value Reference Range Interpretation Comments Ca Ion WB (test code = Ca Ion WB) 1.21 1.05-1.25 [facility] AntonioHycreteMULTICARE TACOMA GENERAL HOSPITALROID LEPQEKS7575-50-55 14:17:00 Test Item Value Reference Range Interpretation Comments Ca Norm WB (test code = Ca Norm WB) 1.17 1.05-1.25 [facility] Central[facility] TBLHJZVIC3693-30-67 14:17:00 Test Item Value Reference Range Interpretation Comments Hgb A1C (test code = Hgb A1C) 5.6 [facility] [employer] ZQYGVWZ5097-03-07 14:17:00 Test Item Value Reference Range Interpretation Comments ABO/Rh (test code = ABO/Rh) O POS [facility] [employer] [id number] 14:17:00 Test Item Value Reference Range Interpretation Comments Antibody Scrn (test Negative (04/06/21 8:17 code = Antibody Scrn) AM) [facility] AntonioSumAll [id number] 14:17:00 Test Item Value Reference Range Interpretation Comments BNP (test code = BNP) 43 [facility] Antonio[facility] 14:17:00 Test Item Value Reference Range Interpretation Comments HS Troponin I (test code = HS Troponin 24 I) [facility] [employer] [id number] 14:17:00 Test Item Value Reference Range Interpretation Comments Glucose Lvl (test code = Glucose Lvl) 99 70-99 [facility] [employer]2022-01-30 14:17:00 Test Item Value Reference Range Interpretation Comments BUN (test code = BUN) 18 7-22 [facility] [employer]2022-01-30 14:17:00 Test Item Value Reference Range Interpretation Comments Creatinine Lvl (test code = Creatinine 0.88 0.50-1.40 Lvl) [facility] [employer]2022-01-30 14:17:00 Test Item Value Reference Range Interpretation Comments Sodium Lvl (test code = Sodium Lvl) 132 135-145 [place] 591442-01-30 14:17:00 Test Item Value Reference Range Interpretation Comments Potassium Lvl (test code = Potassium 3.9 3.5-5.1 Lvl) [place] 591442-01-30 14:17:00 Test Item Value Reference Range Interpretation Comments Chloride Lvl (test code = Chloride Lvl) 103 95-109 [place] 591442-01-30 14:17:00 Test Item Value Reference Range Interpretation Comments CO2 (test code = CO2) 24 24-32 [place] 591442-01-30 14:17:00 Test Item Value Reference Range Interpretation Comments Calcium Lvl (test code = Calcium Lvl) 9.3 8.5-10.5 [place] 591442-01-30 14:17:00 Test Item Value Reference Range Interpretation Comments AGAP (test code = AGAP) 8.9 10.0-20.0 [place] 591442-01-30 14:17:00 Test Item Value Reference Range Interpretation Comments eGFR (test code = eGFR) 86 [place] 591442-01-30 14:17:00 Test Item Value Reference Range Interpretation Comments Total Protein (test code = Total 7.9 6.4-8.4 Protein) [place] 591442-01-30 14:17:00 Test Item Value Reference Range Interpretation Comments Albumin Lvl (test code = Albumin Lvl) 3.6 3.5-5.0 [place] 591442-01-30 14:17:00 Test Item Value Reference Range Interpretation Comments ALT (test code = ALT) 25 See_Comment [Auto mated message] The system which ge nerated this result transmit jw reference range : <=65. The reference range was not used to interpr et this result as mateo l/abnormal. [place] 591442-01-30 14:17:00 Test Item Value Reference Range Interpretation Comments AST (test code = AST) 30 See_Comment [Auto mated message] The system which ge nerated this result transmit jw reference range : <=37. The reference range was not used to interpr et this result as mateo l/abnormal. [place] [address]-01-30 14:17:00 Test Item Value Reference Range Interpretation Comments Alk Phos (test code = Alk Phos) 103 39-136 [place] 591442-01-30 14:17:00 Test Item Value Reference Range Interpretation Comments Bili Total (test code = Bili Total) 0.6 0.2-1.3 [place] 591442-01-30 14:17:00 Test Item Value Reference Range Interpretation Comments Bili Direct (test code 0.1 See_Comment [Aut omated message] The = Bili Direct) system which generated this result tra nsmitted reference range : <=0.3. The reference r bret was not used to int erpret this result as mateo l/abnormal. [place] 591442-01-30 14:17:00 Test Item Value Reference Range Interpretation Comments Bili Indirect (test 0.5 See_Comment [Automa jw message] The code = Bili Indirect) system which generated this result tra nsmitted reference range : <=1.0. The reference r bret was not used to int erpret this result as normal/abnormal . [place] 591442-01-30 14:17:00 Test Item Value Reference Range Interpretation Comments Globulin (test code = Globulin) 4.3 2.7-4.2 [place] 591442-01-30 14:17:00 Test Item Value Reference Range Interpretation Comments A/G Ratio (test code = A/G Ratio) 0.8 1 0.7-1.6 [place] 591442-01-30 14:17:00 Test Item Value Reference Range Interpretation Comments Magnesium Lvl (test code = Magnesium 2.1 1.8-2.4 Lvl) [place] 591442-01-30 14:17:00 Test Item Value Reference Range Interpretation Comments Phosphorus (test code = Phosphorus) 2.8 2.5-4.5 [place] 701252-01-30 14:17:00 Test Item Value Reference Range Interpretation Comments WBC (test code = WBC) 4.6 3.7-10.4 [place] 701252-01-30 14:17:00 Test Item Value Reference Range Interpretation Comments RBC (test code = RBC) 3.78 4.70-6.10 [place] 701252-01-30 14:17:00 Test Item Value Reference Range Interpretation Comments Hgb (test code = Hgb) 13.1 14.0-18.0 [place] 701252-01-30 14:17:00 Test Item Value Reference Range Interpretation Comments Hct (test code = Hct) 37.8 42.0-54.0 [place] 701252-01-30 14:17:00 Test Item Value Reference Range Interpretation Comments MCV (test code = MCV) 99.9 80.0-94.0 [place] 701252-01-30 14:17:00 Test Item Value Reference Range Interpretation Comments MCH (test code = MCH) 34.5 pg 27.0-31.0 [place] 701252-01-30 14:17:00 Test Item Value Reference Range Interpretation Comments MCHC (test code = MCHC) 34.5 32.0-36.0 [place] 701252-01-30 14:17:00 Test Item Value Reference Range Interpretation Comments RDW (test code = RDW) 16.8 11.5-14.5 [place] 701252-01-30 14:17:00 Test Item Value Reference Range Interpretation Comments Platelet (test code = Platelet) 181 133-450 [facility]OyoythpGDPSNLBCGN9010-28-08 14:17:00 Test Item Value Reference Range Interpretation Comments MPV (test code = MPV) 9.7 7.4-10.4 [place] 701252-01-30 14:17:00 Test Item Value Reference Range Interpretation Comments PT (test code = PT) 13.8 s 12.0-14.7 [place] 701252-01-30 14:17:00 Test Item Value Reference Range Interpretation Comments INR (test code = INR) 1.07 1 0.85-1.17 [place] 701252-01-30 14:17:00 Test Item Value Reference Range Interpretation Comments PTT (test code = PTT) 34.6 s 22.9-35.8 [place] 701252-01-30 14:17:00 Test Item Value Reference Range Interpretation Comments Neutrophils # (test code = Neutrophils 2.7 1.5-8.1 #) [facility]DdzdprtVWHGMRZZXF5840-07-07 14:17:00 Test Item Value Reference Range Interpretation Comments Lymphocytes # (test code = Lymphocytes 1.2 1.0-5.5 #) [place] 701252-01-30 14:17:00 Test Item Value Reference Range Interpretation Comments Monocytes # (test code 0.5 See_Comment [Aut omated message] The = Monocytes #) system which generated this result tra nsmitted reference range : <=0.8. The reference r bret was not used to int erpret this result as normal/abnormal . [place] 701252-01-30 14:17:00 Test Item Value Reference Range Interpretation Comments Eosinophils # (test code 0.3 See_Comment [A utomated message] The = Eosinophils #) system whic h generated this result tra nsmitted reference range : <=0.5. The reference r bret was not used to int erpret this result as normal/abnormal . [place] 701252-01-30 14:17:00 Test Item Value Reference Range Interpretation Comments Segs (test code = Segs) 57.0 45.0-75.0 [place] 701252-01-30 14:17:00 Test Item Value Reference Range Interpretation Comments Bands (test code = 1.0 See_Comment [Automat ed message] The Bands) system which ge nerated this result transmit wj reference range : <=11.0. The reference r bret was not used to interpr et this result as mateo l/abnormal. [facility] HospitalIfrktwcYVPQQJGTHU3915-57-86 14:17:00 Test Item Value Reference Range Interpretation Comments Lymphocytes (test code = Lymphocytes) 26.0 20.0-40.0 [place] 701252-01-30 14:17:00 Test Item Value Reference Range Interpretation Comments Monocytes (test code = Monocytes) 10.0 2.0-12.0 [place] 701252-01-30 14:17:00 Test Item Value Reference Range Interpretation Comments Eosinophils (test code = 6.0 See_Comment [A utomated message] The Eosinophils) system which ge nerated this result tra nsmitted reference range : <=4.0. The reference r bret was not used to int erpret this result as normal/abnormal . [place] 701252-01-30 14:17:00 Test Item Value Reference Range Interpretation Comments Atypical Lymphs (test code = Atypical 0.0 Lymphs) [facility]WsdupygWFAPGEONOO9728-48-65 14:17:00 Test Item Value Reference Range Interpretation Comments Anisocyte (test code = 1+ *ABN*(04/06/21 Anisocyte) 8:17 AM) [facility]IixgsejHNTHHCWVSD4119-41-95 14:17:00 Test Item Value Reference Range Interpretation Comments Macrocyte (test code = 1+ *ABN*(04/06/21 Macrocyte) 8:17 AM) [facility]UkpngkhNYDLONFMGG8064-71-46 14:17:00 Test Item Value Reference Range Interpretation Comments Large Plt (test code Moderate *ABN*(04/06/21 = Large Plt) 8:17 AM) [facility] HospitalDxddusrOTVOYDHIQJ2837-55-04 14:17:00 Test Item Value Reference Range Interpretation Comments Giant Plt (test code = Giant Plt) [facility]QnvtipvIMQVTJ8846-39-10 14:17:00 Test Item Value Reference Range Interpretation Comments Trig (test code = Trig) 138 [facility] HospitalYswwzfyXVZGGX0821-21-97 14:17:00 Test Item Value Reference Range Interpretation Comments Chol (test code = Chol) 162 [facility] CentralPyubthxSHIVTC1569-83-65 14:17:00 Test Item Value Reference Range Interpretation Comments HDL (test code = HDL) 37 [facility] CentralUohsbjqITYVVX9422-65-10 14:17:00 Test Item Value Reference Range Interpretation Comments CHD Risk (test code = CHD Risk) 4.38 1 4.00-7.30 [facility] CentralPfbeybzOCIDDA2060-77-71 14:17:00 Test Item Value Reference Range Interpretation Comments LDL (Calculated) (test code = LDL 97 (Calculated)) [facility] CentralKciamwjKYRRUI7853-22-16 14:17:00 Test Item Value Reference Range Interpretation Comments VLDL (test code = VLDL) 28 1 [facility] AntonioannPARATHYROID GHBZQRP9353-82-54 14:17:00 Test Item Value Reference Range Interpretation Comments Ca Ion WB (test code = Ca Ion WB) 1.21 1.05-1.25 [facility] CentralPARATHYROID [id number] 14:17:00 Test Item Value Reference Range Interpretation Comments Ca Norm WB (test code = Ca Norm WB) 1.17 1.05-1.25 [facility] ECGZPSTIT8944-78-78 14:17:00 Test Item Value Reference Range Interpretation Comments Hgb A1C (test code = Hgb A1C) 5.6 [facility] [employer] BCFLQXK1856-92-71 14:17:00 Test Item Value Reference Range Interpretation Comments ABO/Rh (test code = ABO/Rh) O POS [facility] [employer] DQKQXSP7935-34-03 14:17:00 Test Item Value Reference Range Interpretation Comments Antibody Scrn (test Negative (04/06/21 8:17 code = Antibody Scrn) AM) [facility] [employer] [id number] 14:17:00 Test Item Value Reference Range Interpretation Comments BNP (test code = BNP) 43 [facility] [place] IOYTAOX8280-49-40 14:17:00 Test Item Value Reference Range Interpretation Comments HS Troponin I (test code = HS Troponin 24 I) [facility] [employer]2022-01-30 14:17:00 Test Item Value Reference Range Interpretation Comments Glucose Lvl (test code = Glucose Lvl) 99 70-99 [facility] [employer]2022-01-30 14:17:00 Test Item Value Reference Range Interpretation Comments BUN (test code = BUN) 18 7-22 [facility] [employer]2022-01-30 14:17:00 Test Item Value Reference Range Interpretation Comments Creatinine Lvl (test code = Creatinine 0.88 0.50-1.40 Lvl) [facility] [employer]2022-01-30 14:17:00 Test Item Value Reference Range Interpretation Comments Sodium Lvl (test code = Sodium Lvl) 132 135-145 [facility] [employer]2022-01-30 14:17:00 Test Item Value Reference Range Interpretation Comments Potassium Lvl (test code = Potassium 3.9 3.5-5.1 Lvl) [facility] [employer]2022-01-30 14:17:00 Test Item Value Reference Range Interpretation Comments Chloride Lvl (test code = Chloride Lvl) 103 95-109 [facility] [employer]2022-01-30 14:17:00 Test Item Value Reference Range Interpretation Comments CO2 (test code = CO2) 24 24-32 [facility] [employer]2022-01-30 14:17:00 Test Item Value Reference Range Interpretation Comments Calcium Lvl (test code = Calcium Lvl) 9.3 8.5-10.5 [place] 591442-01-30 14:17:00 Test Item Value Reference Range Interpretation Comments AGAP (test code = AGAP) 8.9 10.0-20.0 [place] 591442-01-30 14:17:00 Test Item Value Reference Range Interpretation Comments eGFR (test code = eGFR) 86 [place] 591442-01-30 14:17:00 Test Item Value Reference Range Interpretation Comments Total Protein (test code = Total 7.9 6.4-8.4 Protein) [place] 591442-01-30 14:17:00 Test Item Value Reference Range Interpretation Comments Albumin Lvl (test code = Albumin Lvl) 3.6 3.5-5.0 [place] 591442-01-30 14:17:00 Test Item Value Reference Range Interpretation Comments ALT (test code = ALT) 25 See_Comment [Auto mated message] The system which ge nerated this result transmit jw reference range : <=65. The reference range was not used to interpr et this result as mateo l/abnormal. [place] 591442-01-30 14:17:00 Test Item Value Reference Range Interpretation Comments AST (test code = AST) 30 See_Comment [Auto mated message] The system which ge nerated this result transmit jw reference range : <=37. The reference range was not used to interpr et this result as mateo l/abnormal. [place] 591442-01-30 14:17:00 Test Item Value Reference Range Interpretation Comments Alk Phos (test code = Alk Phos) 103 39-136 [place] 591442-01-30 14:17:00 Test Item Value Reference Range Interpretation Comments Bili Total (test code = Bili Total) 0.6 0.2-1.3 [place] [address]-01-30 14:17:00 Test Item Value Reference Range Interpretation Comments Bili Direct (test code 0.1 See_Comment [Aut omated message] The = Bili Direct) system which generated this result tra nsmitted reference range : <=0.3. The reference r bret was not used to int erpret this result as mateo l/abnormal. [place] 591442-01-30 14:17:00 Test Item Value Reference Range Interpretation Comments Bili Indirect (test 0.5 See_Comment [Automa jw message] The code = Bili Indirect) system which generated this result tra nsmitted reference range : <=1.0. The reference r bret was not used to int erpret this result as normal/abnormal . [place] [id number] 14:17:00 Test Item Value Reference Range Interpretation Comments Globulin (test code = Globulin) 4.3 2.7-4.2 [place] 591442-01-30 14:17:00 Test Item Value Reference Range Interpretation Comments A/G Ratio (test code = A/G Ratio) 0.8 1 0.7-1.6 [place] [address]-01-30 14:17:00 Test Item Value Reference Range Interpretation Comments Magnesium Lvl (test code = Magnesium 2.1 1.8-2.4 Lvl) [place] 591442-01-30 14:17:00 Test Item Value Reference Range Interpretation Comments Phosphorus (test code = Phosphorus) 2.8 2.5-4.5 [place] [address]7413-01-30 14:17:00 Test Item Value Reference Range Interpretation Comments WBC (test code = WBC) 4.6 3.7-10.4 [place] 701252-01-30 14:17:00 Test Item Value Reference Range Interpretation Comments RBC (test code = RBC) 3.78 4.70-6.10 [place] 701252-01-30 14:17:00 Test Item Value Reference Range Interpretation Comments Hgb (test code = Hgb) 13.1 14.0-18.0 [place] [address]13-01-30 14:17:00 Test Item Value Reference Range Interpretation Comments Hct (test code = Hct) 37.8 42.0-54.0 [place] [address]-01-30 14:17:00 Test Item Value Reference Range Interpretation Comments MCV (test code = MCV) 99.9 80.0-94.0 [place] [address]-01-30 14:17:00 Test Item Value Reference Range Interpretation Comments MCH (test code = MCH) 34.5 pg 27.0-31.0 [place] 87413-01-30 14:17:00 Test Item Value Reference Range Interpretation Comments MCHC (test code = MCHC) 34.5 32.0-36.0 [place] 701252-01-30 14:17:00 Test Item Value Reference Range Interpretation Comments RDW (test code = RDW) 16.8 11.5-14.5 [place] 701252-01-30 14:17:00 Test Item Value Reference Range Interpretation Comments Platelet (test code = Platelet) 181 133-450 [facility]DEKU6060[facility]36-70 14:17:00 Test Item Value Reference Range Interpretation Comments MPV (test code = MPV) 9.7 7.4-10.4 [place] 701252-01-30 14:17:00 Test Item Value Reference Range Interpretation Comments PT (test code = PT) 13.8 s 12.0-14.7 [place] 701252-01-30 14:17:00 Test Item Value Reference Range Interpretation Comments INR (test code = INR) 1.07 1 0.85-1.17 [place] 701252-01-30 14:17:00 Test Item Value Reference Range Interpretation Comments PTT (test code = PTT) 34.6 s 22.9-35.8 [place] 701252-01-30 14:17:00 Test Item Value Reference Range Interpretation Comments Neutrophils # (test code = Neutrophils 2.7 1.5-8.1 #) [place] 701252-01-30 14:17:00 Test Item Value Reference Range Interpretation Comments Lymphocytes # (test code = Lymphocytes 1.2 1.0-5.5 #) [place] 701252-01-30 14:17:00 Test Item Value Reference Range Interpretation Comments Monocytes # (test code 0.5 See_Comment [Aut omated message] The = Monocytes #) system which generated this result tra nsmitted reference range : <=0.8. The reference r bret was not used to int erpret this result as normal/abnormal . [place] 701252-01-30 14:17:00 Test Item Value Reference Range Interpretation Comments Eosinophils # (test code 0.3 See_Comment [A utomated message] The = Eosinophils #) system whic h generated this result tra nsmitted reference range : <=0.5. The reference r bret was not used to int erpret this result as normal/abnormal . [place] 701252-01-30 14:17:00 Test Item Value Reference Range Interpretation Comments Segs (test code = Segs) 57.0 45.0-75.0 [place] 701252-01-30 14:17:00 Test Item Value Reference Range Interpretation Comments Bands (test code = 1.0 See_Comment [Automat ed message] The Bands) system which ge nerated this result transmit jw reference range : <=11.0. The reference r bret was not used to interpr et this result as mateo l/abnormal. [facility]RXSIBOHSWE7824-27-81 14:17:00 Test Item Value Reference Range Interpretation Comments Lymphocytes (test code = Lymphocytes) 26.0 20.0-40.0 [place] 701252-01-30 14:17:00 Test Item Value Reference Range Interpretation Comments Monocytes (test code = Monocytes) 10.0 2.0-12.0 [place] 701252-01-30 14:17:00 Test Item Value Reference Range Interpretation Comments Eosinophils (test code = 6.0 See_Comment [A utomated message] The Eosinophils) system which ge nerated this result tra nsmitted reference range : <=4.0. The reference r bret was not used to int erpret this result as normal/abnormal . [place] 701252-01-30 14:17:00 Test Item Value Reference Range Interpretation Comments Atypical Lymphs (test code = Atypical 0.0 Lymphs) [place] 701252-01-30 14:17:00 Test Item Value Reference Range Interpretation Comments Anisocyte (test code = 1+ *ABN*(04/06/21 Anisocyte) 8:17 AM) [place] 701252-01-30 14:17:00 Test Item Value Reference Range Interpretation Comments Macrocyte (test code = 1+ *ABN*(04/06/21 Macrocyte) 8:17 AM) [place] 701252-01-30 14:17:00 Test Item Value Reference Range Interpretation Comments Large Plt (test code Moderate *ABN*(04/06/21 = Large Plt) 8:17 AM) [place] 701252-01-30 14:17:00 Test Item Value Reference Range Interpretation Comments Giant Plt (test code = Giant Plt) [facility] CentralDcnfblkRXFBLE5170-20-71 14:17:00 Test Item Value Reference Range Interpretation Comments Trig (test code = Trig) 138 [facility] CentralEsuqipoBODALW3689-75-82 14:17:00 Test Item Value Reference Range Interpretation Comments Chol (test code = Chol) 162 [facility] CentralDjtzrnrMCRMLV3559-40-18 14:17:00 Test Item Value Reference Range Interpretation Comments HDL (test code = HDL) 37 [facility] AntonioFsvbdcmJHKGXZ9994-48-29 14:17:00 Test Item Value Reference Range Interpretation Comments CHD Risk (test code = CHD Risk) 4.38 1 4.00-7.30 [facility] AntonioYflncluFTXWSV7105-87-38 14:17:00 Test Item Value Reference Range Interpretation Comments LDL (Calculated) (test code = LDL 97 (Calculated)) [facility] CentralLmyzeduBQABRO3276-90-17 14:17:00 Test Item Value Reference Range Interpretation Comments VLDL (test code = VLDL) 28 1 [facility] CentralPARATHYROID UMJIKJM9255-86-39 14:17:00 Test Item Value Reference Range Interpretation Comments Ca Ion WB (test code = Ca Ion WB) 1.21 1.05-1.25 [facility] CentralPARATHYROID [id number] 14:17:00 Test Item Value Reference Range Interpretation Comments Ca Norm WB (test code = Ca Norm WB) 1.17 1.05-1.25 [facility] CentralSPECIAL ZVSDWPIIJ3852-10-55 14:17:00 Test Item Value Reference Range Interpretation Comments Hgb A1C (test code = Hgb A1C) 5.6 [facility] CentralCOVID-19 (ID NOW RAPID TESTING)2019-09-05 15:05:00 Test Item Value Reference Range Interpretation Comments SARS-CoV-2 Rapid ID NOW Not Detected Not Detected (test code = 49430-6) ANDREA (test code = ANDREA) ID NOW COVID-19 Assay is an isothermal nucleic acid amplification test intended for the qualitative detection of nucleic acid from SARS-CoV-2 viral RNA in nasopharyngeal ([employer]PATCHER) specimens. It is used under Emergency Use [...] indicated. Lab Interpretation Normal (test code = 80955-4) [facility] 13:59:00HEART RATE: 60 bpmRR Interval: 1000 msAtrial Rate: 60 msP-R Interval: 108 msP Duration: 80 msP Horizo ntal Poth: 250 degP Front Poth: degQ Onset: 499 msQRSD Interval: 90 msQT Interval: 403 msQTcB: 403 msQTcF: 403 msQRS Horizontal Poth: 8 degQRS Poth: 27 degI-40 Horizontal Poth: 38 degI-40 Front Poth: 59 degT-40 Horizontal Poth: -22 degT-40 Front Poth: 21 degT Horizontal Poth: 87 degT Wave Poth: 96 degS-T Horizontal Poth: 144 degS-T Front Poth: 190 degECG Severity: - ABNORMAL ECG -ECG Impression: Atrial-paced rhythmECG Impression: Nonspecific repol abnormality, lateral [id number] 11:03:00HEART RATE: 60 bpmRR Interval: 1000 msAtrial Rate: 60 msP-R Interval: 177 msP Duration: 133 msP Horizontal Poth: 255 degP Front Poth: degQ Onset: 502 msQRSD Interval: 87 msQT Interval: 394 msQTcB: 394 m sQTcF: 394 msQRS Horizontal Poth: -1 degQRS Poth: 20 degI-40 Horizontal Poth: 16 degI-40 Front Poth:37 degT-40 Horizontal Poth: -37 degT-40 Front Poth: 9 degT Horizontal Poth: 86 degT Wave Poth: 68 degS-T Horizontal Poth: 124 degS-T Front Poth: 256 degECG Severity: - ABNORMAL ECG -ECG Impression: Atrial-paced rhythm CTA [id number] 15:11:[address] [id number] IMAGING REPORTPatient Name: MAURICE PENAJorge Alberto of Service: [id number]: 69 Sex: M Order #: [id number] Room: [facility] A 4SDOB: 1950 X-Ray Number: [id number] Record Number: [id number] Hospital Number: [id number] Physician: TAYE GUTIÉRREZOrdering Physician: ANDERSON LAW head [...] with atherosclerotic calcificationsat its origin leading to oqahyslpqhbfm41% diameter stenosis. The petrous,cervical and cavernous portions [...] authenticated by VENKATA GARCIA JR 2019-05-16 15:08:55CTA BMGL7628-29-28 15:11:[address] [id number] IMAGING REPORTPatient Name: Tyron PENA of Service: [id number]: 69 Sex: M Order #: [id number] Room: [facility] 4SDOB: 1950 X-Ray Number: [id number] Record Number: [id number] Hospital Number: [id number] Physician: TAYE GUTIÉRREZOrdering Physician: ANDERSON LAW head [...] with atherosclerotic calcificationsat its origin leading to bckduxaeuzmun12% diameter stenosis. The petrous,cervical and cavernous portions [...] VENKATA GARCIA JR 2019-05-16 15:08:55BMP, BASIC METABOLIC [id number] 05:47:00 Test Item Value Reference Range Interpretation [...] glucose = GLUCOSE) normal <100 MG/ DL- [place] [employer] recommendation* * CALCIUM (test code 9.0 MG/DL 8.4-10.2 = CABLOOD) GFR (test code = 89 A GFR of >9 0 GFR) mL/min/1.73m2 mL/min/1.73m2 is considered norm al. [id number] 05:47:00 Test Item Value Reference Range Interpretation Comments MG (test code = MG) 2.0 mg/dL 1.6-2.3 LIPID [id number] 05:47:00 Test Item Value Reference Range Interpretation [...] = 84 MG/DL <100 CALC LDL) DIRECT [id number] 05:47:00 Test Item Value Reference Range Interpretation Comments DIR LDL (test code = LDL) 103 MG/DL 0-<100 H PROBRAIN NATRIURETIC [id number] 05:45:00 Test Item Value Reference Range Interpretation Comments NT-PROBNP (test code 175 pg/mL Exclusi on for heart = PROBNP) failure for pat ients of all ages is 300 pg/mL. Inclusion for h eart failure for pat ients age <50 is 450 pg/m L; for patients age 50 -75 is 900 pg/mL; for patients age >75 is 1800 pg/mL. [id number] 05:30:00 Test Item Value Reference Range Interpretation [...] (test code 2.7 K/UL 1.2-7.2 = NEUT) [id number] 13:52:00 Test Item Value Reference Range Interpretation [...] 1.000-1.025 UAMICRO (test code = UAMICRO) NO [id number] 12:26:00 Test Item Value Reference Range Interpretation Comments BLOOD TYPE (test O Rh Positive Comment for code = TYPE) Female s Rhogam may be indicated for patient dependi ng baby's Rh statu s. ANTIBODY SCREEN NEGATIVE NEGATIVE (test code = SCREEN) [id number] 11:56:00 Test Item Value Reference Range Interpretation Comments %CKMB (test code = %MB) 0.4 % CKMB (test code = CKMB) 0.3 NG/ML 0.22-2.4 CK (test code = CK) 69 U/L 55-170 CKINTERP (test code = NEGATIVE Negative CKINTERP) BMP, BASIC METABOLIC [id number] 11:52:00 Test Item Value Reference Range Interpretation [...] glucose = GLUCOSE) normal <100 MG/ DL- [place] [employer] recommendation* * CALCIUM (test code 9.1 MG/DL 8.4-10.2 = CABLOOD) GFR (test code = 89 A GFR of >9 0 GFR) mL/min/1.73m2 mL/min/1.73m2 is considered norm al. [id number] 11:50:00 Test Item Value Reference Range Interpretation Comments PTT (test code = 24.9 SECONDS 25.0-36.5 L HEPARIN THE RAPEUTIC PTT) RANGE 57-92 SEC ONDS PROTHROMBIN TIME WITH [id number] 11:50:00 Test Item Value Reference Range Interpretation Comments PROTHROMBIN TIME 13.0 SECONDS 10.1-12.7 H INR Usual R bret = 2 (test code = PT) to 3 for pr evention of deep vein thrombosis (DVT ) INR (test code = INR) 1.1 [id number] 11:49:00 Test Item Value Reference Range Interpretation [...] code 3.9 K/UL 1.2-7.2 = NEUT) TROPONIN [id number] 11:15:00 Test Item Value Reference Range Interpretation Comments TROPER (test code = 0.01 NG/ML 0.0-0.08 INTE RPRETIVE TROPER) DATA A POC T ROPONIN OF </= 0.08 NG/ ML IS CONSIDERED NEGA TIVE CHEST 1 VIEW [id number] 11:13:[address] [address]IKBOEVDJEK IMAGING REPORTPatient Name: MAURICE PENADate of Service: [id number]: 69 Sex: M Order #: [id number] [facility] [id number] Record Number: [id number] Hospital Number: [id number] Physician: Ernestina MANCUSO Physician: Haresh MANCUSO.05/15/2019 11:08 AMHistory: Hypertension.Technique: Single AP chest projection.Findings: Single chest projection demonstrates normal heart size and clearlungs. The osseous structures appear intact. Pacemaking device lead wiresappear intact.Impression:No acute-appearing cardiopulmonary abnormalities.Electronically Signed By: Kevin Shipley M.D., 05/15/2019 11:11 AMLegally authenticated by QUINTEN Stokes 2019-05-15 11:11:07CT HEAD W/O CONT 2019-05-15 11:12:[address] [id number] IMAGING REPORTPatient Name: Tyron PENA of Service: [id number]: 69 Sex: M Order #: [id number] Room: ERDOB: 1950 X- Ray Number: [id number] Record Number: [id number] Hospital Number: [id number] Physician: Ernestina MANCUSO Physician: KRISTINA MANCUSO HEAD:HISTORY: [...] by QUINTEN Stokes 2019-05-15 11:10:40BMP, BASIC METABOLIC [id number] 07:54:00 Test Item Value Reference Range Interpretation [...] glucose = GLUCOSE) normal <100 MG/ DL- [place] [employer] recommendation* * CALCIUM (test code 9.0 MG/DL 8.4-10.2 = CABLOOD) GFR (test code = 79 A GFR of >9 0 GFR) mL/min/1.73m2 mL/min/1.73m2 is considered norm al. [id number] 06:50:00 Test Item Value Reference Range Interpretation [...] (test code 2.1 K/UL 1.2-7.2 = NEUT) [id number] 05:11:00 Test Item Value Reference Range Interpretation [...] K/UL 1.2-7.2 = NEUT) PROTHROMBIN TIME WITH [id number] 03:45:00 Test Item Value Reference Range Interpretation Comments PROTHROMBIN TIME 13.3 SECONDS 10.1-12.7 H INR Usual R bret = 2 (test code = PT) to 3 for pr evention of deep vein thrombosis (DVT ) INR (test code = INR) 1.2 [id number] 03:45:00 Test Item Value Reference Range Interpretation Comments PTT (test code = 25.2 SECONDS 25.0-36.5 HEPARIN THE RAPEUTIC PTT) RANGE 57-92 SEC ONDS BMP, BASIC METABOLIC [id number] 03:45:00 Test Item Value Reference Range Interpretation [...] glucose = GLUCOSE) normal <100 MG/ DL- [place] [employer] recommendation* * CALCIUM (test code 8.6 MG/DL 8.4-10.2 = CABLOOD) GFR (test code = 89 A GFR of >9 0 GFR) mL/min/1.73m2 mL/min/1.73m2 is considered norm al. [id number] 03:45:00 Test Item Value Reference Range Interpretation Comments MG (test code = MG) 1.9 mg/dL 1.6-2.3 [id number] 03:45:00 Test Item Value Reference Range Interpretation Comments PHOSPHOR (test code = PHOSPHOR) 3.3 MG/DL 2.5-4.5 [id number] 03:38:00 Test Item Value Reference Range Interpretation [...] code 2.2 K/UL 1.2-7.2 = NEUT) TROPONIN [id number] 20:10:00 Test Item Value Reference Range Interpretation Comments TROPER (test code = 0.00 NG/ML 0.0-0.08 INTE RPRETIVE TROPER) DATA A POC T ROPONIN OF </= 0.08 NG/ ML IS CONSIDERED NEGA TIVE HEPATITIS C ANTIBODY [id number] 19:13:00 Test Item Value Reference Range Interpretation [...] and confirmation re sults will follow. D-DIMER, [id number] 18:51:00 Test Item Value Reference Range Interpretation Comments D-DIMER (test 407 ng/mL (FEU) 0-500 VALUES OF Q UANTITATIVE code = DDIMER) D-DIMER LESS THAN 499 ng/mL HAVE BEEN REPORTED TO BE ASSOCIATED WITH A LOW PROBABILITY OF DEEP VEIN THROMBOSIS/PULM ONARYEMB OLISM. THIS GARCÍA T ALONE SHOULD NOT BE U SED TO RULE OUT DVT/PE . CHEST 1 VIEW [id number] 18:05:[address] [id number] IMAGING REPORTPatient Name: MAURICE PENADate of Service: [id number]: 69 Sex: M Order #: [id number] Room: [facility]: [facility] X-Ray Number: [id number] Record Number: [id number] Hospital Number: [id number] Physician: DEDRA HUYNH TANOrdering Physician: LAUREL CODY 1 VIEW PORTABLE 05/13/2019 5:46 PMHistory: Chest Pain without Trauma/Injury, hypertension, [place], CAD, coronarystents.Comparisons: None Avail able.FINDINGS:Heart size is normal.There is no focal lung consolidation.There is no definite pleuraleffusion or pneumothorax identified.Hyperinflation suggests COPD.There is apical pleural thickening bilaterally.Left-sided pacemaker is in good position.IMPRESSION:No acute cardiopulmonary process.Electronically Signed By: Cameron Amaya M.D., 05/13/2019 6:03 PMLegally authenticated by ORLANDO DOWNS 2019-05-13 18:03:07PROBRAIN NATRIURETIC [id number] 17:38:00 Test Item Value Reference Range Interpretation Comments NT-PROBNP (test code 151 pg/mL Exclusi on for heart = PROBNP) failure for pat ients of all ages is 300 pg/mL. Inclusion for h eart failure for pat ients age <50 is 450 pg/m L; for patients age 50 -75 is 900 pg/mL; for patients age >75 is 1800 pg/mL. [id number] 17:38:00 Test Item Value Reference Range Interpretation Comments %CKMB (test code = %MB) 0.7 % CKMB (test code = CKMB) 0.8 NG/ML 0.22-2.4 CK (test code = CK) 110 U/L 55-170 CKINTERP (test code = NEGATIVE Negative CKINTERP) BMP, BASIC METABOLIC [id number] 17:38:00 Test Item Value Reference Range Interpretation [...] glucose = GLUCOSE) normal <100 MG/ DL- [place] [employer] recommendation* * CALCIUM (test code 9.5 MG/DL 8.4-10.2 = CABLOOD) GFR (test code = 79 A GFR of >9 0 GFR) mL/min/1.73m2 mL/min/1.73m2 is considered norm al. [id number] 17:19:00 Test Item Value Reference Range Interpretation [...] code 3.0 K/UL 1.2-7.2 = NEUT) TROPONIN [id number] 17:15:00 Test Item Value Reference Range Interpretation Comments TROPER (test code = 0.01 NG/ML 0.0-0.08 INTE RPRETIVE TROPER) DATA A POC T ROPONIN OF </= 0.08 NG/ ML IS CONSIDERED NEGA TIVE [id number] 05:42:00 Test Item Value Reference Range Interpretation Comments MAGNESIUM (BEAKER) (test code = 1.9 mg/dL 1.6-2.6 627) BASIC METABOLIC [id number] 05:42:00 Test Item Value Reference Range Interpretation [...] PATIEN TS. CBC W/PLT COUNT & AUTO [id number] 04:43:00 Test Item Value Reference Range Interpretation [...] 0-1 PERCENT (BEAKER) (test code = 2801) [id number] 19:48:00 Test Item Value Reference Range Interpretation Comments ACTIVATED CLOTTING TIME 158 sec TEST ED AT [facility] [address] ([facility]) (test code = NILESH Sims [facility] 441) [address] [id number] 09:20:00 Test Item Value Reference Range Interpretation Comments PARTIAL THROMBOPLASTIN TIME 76.2 seconds 22.5-36.0 H (BEAKER) (test code = 760) CREATINE KINASE (CK)2018-04-08 07:02:00 Test Item Value Reference Range Interpretation Comments CREATINE KINASE TOTAL (BEAKER) (test 74 U/L 29-200 code = 380) LACTIC ACID, VENOUS, WHOLE [id number] 06:56:00 Test Item Value Reference Range Interpretation Comments LACTATE BLOOD VENOUS (2) (BEAKER) 1.1 mmol/L 0.5-2.2 (test code = 2872) NERVE CONDUCTION STUDIES; 3-4 [id number] 06:53:00Select Extremity- >Right Leg Reason for exam:->painBaylor Long Beach Memorial Medical CenterNeurophysiology DepartmentELECTROMYOGRAPHY / NERVE CONDUCTION STUDY [address] [facility] [address] [place] [address] Name: Maurice Pena : Date of : 1950 Gender: Male Date of Exam: 04/07/2018 4:30 PMReferring Physician: Carole Ybarraing Physician: Melody Benavidez Patient History: Patient presents [...] ConductionVelocitySural.RLower leg 2.9 ms 3.7 ms 12 쁷V Ankle-Lower leg 2.9 ms 140 mm 48 [...] the right lower limb. Melody Benavidez M.D. [id number] 03:03:00 Test Item Value Reference Range Interpretation Comments PARTIAL THROMBOPLASTIN TIME 82.1 seconds 22.5-36.0 H (BEAKER) (test code = 760) CT, CTA AAA, W/ SAMMY.EXT.[id number] 16:54:00Addendum BeginsREPORT STATUS:A Addendum: I agree with the previously described non vascular findings. Signed: [place] Rey MDReport Verified Date/Time: 04/07/2018 16:54:33 Reading Location: [place] [address] Angio Body Reading RoomAddendum EndsFINAL REPORT CT [...] dictated regarding the non-vascular findings by the Gas Welding Equipment Mechanic Radiologist. Signed: Steve Musa MDReport Verified Da te/Time: 04/07/2018 15:32:19 Reading Location: [place] [address] Cardiology MRI TROPONIN I 2018-04-07 11:39:00 Test [...] acute neurological disease, and persistent tachyarrhythmia.BASIC METABOLIC [id number] 16:14:00 Test Item Value Reference Range Interpretation [...] S NOT APPLICABLE FOR DIALYSIS PATIEN TS. PT/[id number] 16:05:00 Test Item Value Reference Range Interpretation [...] mechanical heart valves.CBC W/PLT COUNT & AUTO [id number] 15:56:00 Test Item Value Reference Range Interpretation [...] 0-1 PERCENT (BEAKER) (test code = 2801) [id number] 07:14:00 Test Item Value Reference Range Interpretation Comments AGAP (test code = AGAP) 11.9 10.0-20.0 [facility][id number] 07:14:00 Test Item Value Reference Range Interpretation Comments eGFR (test code = eGFR) 96 [facility] Hospita[id number] 07:14:00 Test Item Value Reference Range Interpretation Comments BUN (test code = BUN) 17 7-22 [facility] Hospital[id number] 07:14:00 Test Item Value Reference Range Interpretation Comments Glucose Lvl (test code = Glucose Lvl) 79 70-99 [facility] HospitalKpygvyeOQYEDMWNBMVO4614-20-20 07:14:00 Test Item Value Reference Range Interpretation Comments Calcium Lvl (test code = Calcium Lvl) 7.6 8.5-10.5 [facility] HospitalEdjrwbiRHVBHJYDPVSQ2846-60-57 07:14:00 Test Item Value Reference Range Interpretation Comments Chloride Lvl (test code = Chloride Lvl) 108 95-109 [facility] HospitalYueycxjNHQKSFWRBKUU4245-24-02 07:14:00 Test Item Value Reference Range Interpretation Comments Potassium Lvl (test code = Potassium 3.9 3.5-5.1 Lvl) [facility] Hospital[id number] 07:14:00 Test Item Value Reference Range Interpretation Comments Sodium Lvl (test code = Sodium Lvl) 140 135-145 [facility] HospitalJobiyqnZNFPYKLJFCGJ2167-35-92 07:14:00 Test Item Value Reference Range Interpretation Comments Creatinine Lvl (test code = Creatinine 0.72 0.50-1.40 Lvl) [facility] HospitalIfifgstUUEZHGRVCLUX3280-23-12 07:14:00 Test Item Value Reference Range Interpretation Comments CO2 (test code = CO2) 24 24-32 [facility] Hos[id number] 07:14:00 Test Item Value Reference Range Interpretation Comments Platelet (test code = Platelet) 136 133-450 [facility] HospitalSwwxyqpCCHQZRBVCI9255-94-51 07:14:00 Test Item Value Reference Range Interpretation Comments MPV (test code = MPV) 8.5 7.4-10.4 [facility] HospitalXupbntiRSOJMEENXR2120-68-53 07:14:00 Test Item Value Reference Range Interpretation Comments RDW (test code = RDW) 17.9 11.5-14.5 [facility] HospitalZmenoqaZYJOVJXOZU0095-90-23 07:14:00 Test Item Value Reference Range Interpretation Comments WBC (test code = WBC) 5.4 3.7-10.4 [facility] Hospit[id number] 07:14:00 Test Item Value Reference Range Interpretation Comments Hgb (test code = Hgb) 9.4 14.0-18.0 [facility] Hospit[id number] 07:14:00 Test Item Value Reference Range Interpretation Comments MCHC (test code = MCHC) 32.9 32.0-36.0 [facility] HospitalAfoiyyfFGSKKTPLHI1906-78-75 07:14:00 Test Item Value Reference Range Interpretation Comments Hct (test code = Hct) 28.5 42.0-54.0 [facility] HospitalQocgsfzJCWFBMZPUQ1412-05-90 07:14:00 Test Item Value Reference Range Interpretation Comments MCV (test code = MCV) 84.1 80.0-94.0 [facility] HospitalVccqtnsULWVFVCMTZ1936-27-41 07:14:00 Test Item Value Reference Range Interpretation Comments RBC (test code = RBC) 3.39 4.70-6.10 [facility] HospitalCvtemjwBYEUTKVAMK6087-08-75 07:14:00 Test Item Value Reference Range Interpretation Comments MCH (test code = MCH) 27.6 pg 27.0-31.0 [facility] HospitalLebfjiuCMVDWCVFODXY6069-06-40 07:14:00 Test Item Value Reference Range Interpretation Comments AGAP (test code = AGAP) 11.9 10.0-20.0 [facility] HospitalScharajJDIPGNPGNCBN7911-37-89 07:14:00 Test Item Value Reference Range Interpretation Comments eGFR (test code = eGFR) 96 [facility] HospitalQiprezrWKVHMIBTNIZF2864-35-30 07:14:00 Test Item Value Reference Range Interpretation Comments BUN (test code = BUN) 17 7-22 [facility] HospitalRftpajpKIEXBFQIFTYM5442-26-40 07:14:00 Test Item Value Reference Range Interpretation Comments Glucose Lvl (test code = Glucose Lvl) 79 70-99 [facility]SxljlcdCEQOSSCUTVPB9046-60-03 07:14:00 Test Item Value Reference Range Interpretation Comments Calcium Lvl (test code = Calcium Lvl) 7.6 8.5-10.5 [facility] HospitalNiysvyqBFEGJLCFATSQ8617-32-74 07:14:00 Test Item Value Reference Range Interpretation Comments Chloride Lvl (test code = Chloride Lvl) 108 95-109 [facility] HospitalIhjjnpjEJEJOHYREFBZ4247-82-76 07:14:00 Test Item Value Reference Range Interpretation Comments Potassium Lvl (test code = Potassium 3.9 3.5-5.1 Lvl) [facility] HospitalSugpnggXKQCJKAZFGJP4250-40-49 07:14:00 Test Item Value Reference Range Interpretation Comments Sodium Lvl (test code = Sodium Lvl) 140 135-145 [facility] HospitalKebfxzvOVRJWRCBJNYO0467-31-62 07:14:00 Test Item Value Reference Range Interpretation Comments Creatinine Lvl (test code = Creatinine 0.72 0.50-1.40 Lvl) [facility] HospitalIxiewaxRYMXFXZRDFXT2676-58-54 07:14:00 Test Item Value Reference Range Interpretation Comments CO2 (test code = CO2) 24 24-32 [facility]LrljaagSFENSAXRJM0572-26-36 07:14:00 Test Item Value Reference Range Interpretation Comments Platelet (test code = Platelet) 136 133-450 [facility] HospitalLlrpqlyFWJEYHDABR9428-41-09 07:14:00 Test Item Value Reference Range Interpretation Comments MPV (test code = MPV) 8.5 7.4-10.4 [facility] HospitalYcznccoAFZSVMEJTH8331-20-06 07:14:00 Test Item Value Reference Range Interpretation Comments RDW (test code = RDW) 17.9 11.5-14.5 [facility] HospitalXqshcqyQCJBIKZBFO5399-66-84 07:14:00 Test Item Value Reference Range Interpretation Comments WBC (test code = WBC) 5.4 3.7-10.4 [facility] HospitalLihjunhNWIEDPSCOW3434-25-45 07:14:00 Test Item Value Reference Range Interpretation Comments Hgb (test code = Hgb) 9.4 14.0-18.0 [facility] HospitalCauevveGIQWMAPQDL6473-81-27 07:14:00 Test Item Value Reference Range Interpretation Comments MCHC (test code = MCHC) 32.9 32.0-36.0 [facility] HospitalQgxlskpPNZGXLFYMX7663-67-01 07:14:00 Test Item Value Reference Range Interpretation Comments Hct (test code = Hct) 28.5 42.0-54.0 [facility] HospitalNyfduqnYDFKVRZMML9779-87-31 07:14:00 Test Item Value Reference Range Interpretation Comments MCV (test code = MCV) 84.1 80.0-94.0 [facility] HospitalBcmkukkWWOWGHQFZX5160-22-11 07:14:00 Test Item Value Reference Range Interpretation Comments RBC (test code = RBC) 3.39 4.70-6.10 [facility] HospitalTpnawpjMUZFINVOOV9410-71-76 07:14:00 Test Item Value Reference Range Interpretation Comments MCH (test code = MCH) 27.6 pg 27.0-31.0 [facility] HospitalIxixkkzHRWHQLGMIEZR8724-36-31 07:14:00 Test Item Value Reference Range Interpretation Comments AGAP (test code = AGAP) 11.9 10.0-20.0 [facility] HospitalFsfcvznWYWEFYDNSVVQ3624-20-62 07:14:00 Test Item Value Reference Range Interpretation Comments eGFR (test code = eGFR) 96 [facility] HospitalChqashdRJEYEKDANAXH0822-30-86 07:14:00 Test Item Value Reference Range Interpretation Comments BUN (test code = BUN) 17 7-22 [facility] HospitalMtfgsegPFGMOAUXUWGL3418-12-99 07:14:00 Test Item Value Reference Range Interpretation Comments Glucose Lvl (test code = Glucose Lvl) 79 70-99 [facility] HospitalZvwfkjoWUIDYEDCQUKU6678-70-48 07:14:00 Test Item Value Reference Range Interpretation Comments Calcium Lvl (test code = Calcium Lvl) 7.6 8.5-10.5 [facility] HospitalRerajwaWPREXZTBBICN9650-85-48 07:14:00 Test Item Value Reference Range Interpretation Comments Chloride Lvl (test code = Chloride Lvl) 108 95-109 [facility] HospitalUkyepndXQBDFXFQVEQH7201-77-47 07:14:00 Test Item Value Reference Range Interpretation Comments Potassium Lvl (test code = Potassium 3.9 3.5-5.1 Lvl) [facility] HospitalOagwgifMAIQVJAJBTQZ1651-91-83 07:14:00 Test Item Value Reference Range Interpretation Comments Sodium Lvl (test code = Sodium Lvl) 140 135-145 [facility] HospitalJvkhnffKNTMYCJAJSWO4792-37-15 07:14:00 Test Item Value Reference Range Interpretation Comments Creatinine Lvl (test code = Creatinine 0.72 0.50-1.40 Lvl) [facility] HospitalIfsygjqGMCPGVMSGGLY4981-15-60 07:14:00 Test Item Value Reference Range Interpretation Comments CO2 (test code = CO2) 24 24-32 [facility] HospitalZaggdaeLNIECZJVJQ0005-45-70 07:14:00 Test Item Value Reference Range Interpretation Comments Platelet (test code = Platelet) 136 133-450 [facility] HospitalXvqmehoYHRNTZKRRS9135-16-31 07:14:00 Test Item Value Reference Range Interpretation Comments MPV (test code = MPV) 8.5 7.4-10.4 [facility] HospitalUjrssveGUJFYGNXYM6917-80-36 07:14:00 Test Item Value Reference Range Interpretation Comments RDW (test code = RDW) 17.9 11.5-14.5 [facility] HospitalFfuozopRWLTPXZCRC1833-68-21 07:14:00 Test Item Value Reference Range Interpretation Comments WBC (test code = WBC) 5.4 3.7-10.4 [facility] HospitalTpjyzukBUPICLUFNT1495-95-57 07:14:00 Test Item Value Reference Range Interpretation Comments Hgb (test code = Hgb) 9.4 14.0-18.0 [facility] HospitalGcvfnvyWRFEURIORC4617-07-31 07:14:00 Test Item Value Reference Range Interpretation Comments MCHC (test code = MCHC) 32.9 32.0-36.0 [facility] HospitalVriomjcZFZAWSIOPM1179-93-52 07:14:00 Test Item Value Reference Range Interpretation Comments Hct (test code = Hct) 28.5 42.0-54.0 [facility] HospitalCqicclfPBCXQVIDTW6371-50-41 07:14:00 Test Item Value Reference Range Interpretation Comments MCV (test code = MCV) 84.1 80.0-94.0 [facility] HospitalHavbanjSQDQLDFZVD9096-75-11 07:14:00 Test Item Value Reference Range Interpretation Comments RBC (test code = RBC) 3.39 4.70-6.10 [facility] HospitalLxhdvgsJAVNIEOIKV3717-88-77 07:14:00 Test Item Value Reference Range Interpretation Comments MCH (test code = MCH) 27.6 pg 27.0-31.0 [facility]LsgwsdmNRJTSFJXLEHB1398-56-31 07:14:00 Test Item Value Reference Range Interpretation Comments AGAP (test code = AGAP) 11.9 10.0-20.0 [facility] HospitalCmaubuwVQESWIYMSKHR3492-66-35 07:14:00 Test Item Value Reference Range Interpretation Comments eGFR (test code = eGFR) 96 [facility]OcnksooHRDDWFTADGGO2886-69-69 07:14:00 Test Item Value Reference Range Interpretation Comments BUN (test code = BUN) 17 7-22 [facility]XiyfjqbVENCFGGEDRFD0363-63-76 07:14:00 Test Item Value Reference Range Interpretation Comments Glucose Lvl (test code = Glucose Lvl) 79 70-99 [facility]VjdqzmnXZPYRSQEJHZP2131-15-83 07:14:00 Test Item Value Reference Range Interpretation Comments Calcium Lvl (test code = Calcium Lvl) 7.6 8.5-10.5 [facility]CmyugeqLZODUYGPNTKM6770-06-02 07:14:00 Test Item Value Reference Range Interpretation Comments Chloride Lvl (test code = Chloride Lvl) 108 95-109 [facility] HospitalZscbvdwDYUTLLZLECGZ3231-48-00 07:14:00 Test Item Value Reference Range Interpretation Comments Potassium Lvl (test code = Potassium 3.9 3.5-5.1 Lvl) [facility] HospitalSujkkhaRJMTDHBFYHMF2730-96-64 07:14:00 Test Item Value Reference Range Interpretation Comments Sodium Lvl (test code = Sodium Lvl) 140 135-145 [facility] HospitalBphgveaUCLXITCPWRER3668-66-42 07:14:00 Test Item Value Reference Range Interpretation Comments Creatinine Lvl (test code = Creatinine 0.72 0.50-1.40 Lvl) [facility] HospitalFojzmnrVMYHHSRRAFFW7365-25-97 07:14:00 Test Item Value Reference Range Interpretation Comments CO2 (test code = CO2) 24 24-32 [facility] HospitalSefjmtxZSLWGQOWAE3418-92-57 07:14:00 Test Item Value Reference Range Interpretation Comments Platelet (test code = Platelet) 136 133-450 [facility] HospitalMsiciunOSOQKRTQXO3795-74-21 07:14:00 Test Item Value Reference Range Interpretation Comments MPV (test code = MPV) 8.5 7.4-10.4 [facility] HospitalXqzfpryWLRCNXZEJS1831-45-59 07:14:00 Test Item Value Reference Range Interpretation Comments RDW (test code = RDW) 17.9 11.5-14.5 [facility] HospitalOgzyuvyOFTBWALCVP7476-95-11 07:14:00 Test Item Value Reference Range Interpretation Comments WBC (test code = WBC) 5.4 3.7-10.4 [facility] HospitalIokgzblDUAAJAKKIN1662-34-79 07:14:00 Test Item Value Reference Range Interpretation Comments Hgb (test code = Hgb) 9.4 14.0-18.0 [facility] HospitalMtkhzutNLQOSUAIBG7321-80-32 07:14:00 Test Item Value Reference Range Interpretation Comments MCHC (test code = MCHC) 32.9 32.0-36.0 [facility] HospitalKdntmncWVGMONCEFS2868-06-31 07:14:00 Test Item Value Reference Range Interpretation Comments Hct (test code = Hct) 28.5 42.0-54.0 [facility] HospitalZzktyrdKBTYMABEPV6726-93-90 07:14:00 Test Item Value Reference Range Interpretation Comments MCV (test code = MCV) 84.1 80.0-94.0 [facility] HospitalUrukfdyLXVHUOAGYB5167-58-20 07:14:00 Test Item Value Reference Range Interpretation Comments RBC (test code = RBC) 3.39 4.70-6.10 [facility] HospitalWneoxaaEYYXBFINHM4213-98-59 07:14:00 Test Item Value Reference Range Interpretation Comments MCH (test code = MCH) 27.6 pg 27.0-31.0 [facility]SafgbrhSCKDVGUWIJYB2586-75-31 07:14:00 Test Item Value Reference Range Interpretation Comments AGAP (test code = AGAP) 11.9 10.0-20.0 [facility] HospitalCkhnbbiNQIATLGJLTIW8207-25-60 07:14:00 Test Item Value Reference Range Interpretation Comments eGFR (test code = eGFR) 96 [facility] HospitalAwvcbrsKDCRSQFXFWGY1483-67-14 07:14:00 Test Item Value Reference Range Interpretation Comments BUN (test code = BUN) 17 7-22 [facility] HospitalJkphgzhTITNEZDFEDFW6304-60-87 07:14:00 Test Item Value Reference Range Interpretation Comments Glucose Lvl (test code = Glucose Lvl) 79 70-99 [facility] HospitalUgidvbjUTZPQJBPVXYS0541-97-26 07:14:00 Test Item Value Reference Range Interpretation Comments Calcium Lvl (test code = Calcium Lvl) 7.6 8.5-10.5 [facility]SffyuqsBJDAZKLALMTM1636-10-70 07:14:00 Test Item Value Reference Range Interpretation Comments Chloride Lvl (test code = Chloride Lvl) 108 95-109 [facility] HospitalVgpmwqcUXTPSOEDTIUX0359-92-23 07:14:00 Test Item Value Reference Range Interpretation Comments Potassium Lvl (test code = Potassium 3.9 3.5-5.1 Lvl) [facility] HospitalLmnwshvOJJHJIWFYEPM2601-31-87 07:14:00 Test Item Value Reference Range Interpretation Comments Sodium Lvl (test code = Sodium Lvl) 140 135-145 [facility] HospitalSwyxnpzDLALKPQAKKNQ4636-16-22 07:14:00 Test Item Value Reference Range Interpretation Comments Creatinine Lvl (test code = Creatinine 0.72 0.50-1.40 Lvl) [facility] HospitalIczgnscCZMUNXCVYZPN2688-01-04 07:14:00 Test Item Value Reference Range Interpretation Comments CO2 (test code = CO2) 24 24-32 [facility] HospitalDwbdymwMWZGGULTKV7371-21-04 07:14:00 Test Item Value Reference Range Interpretation Comments Platelet (test code = Platelet) 136 133-450 [facility] HospitalUpdrqsaJZCLPDBVWK1706-43-10 07:14:00 Test Item Value Reference Range Interpretation Comments MPV (test code = MPV) 8.5 7.4-10.4 [facility] HospitalEojieizKXZXJBVMZJ3056-74-13 07:14:00 Test Item Value Reference Range Interpretation Comments RDW (test code = RDW) 17.9 11.5-14.5 [facility] HospitalVblinalWIFGDNXRWD6484-47-91 07:14:00 Test Item Value Reference Range Interpretation Comments WBC (test code = WBC) 5.4 3.7-10.4 [facility] HospitalGsugfikPHEQDDERSQ8717-16-50 07:14:00 Test Item Value Reference Range Interpretation Comments Hgb (test code = Hgb) 9.4 14.0-18.0 [facility] HospitalRpegrmaPZNBOSSPJD3130-23-77 07:14:00 Test Item Value Reference Range Interpretation Comments MCHC (test code = MCHC) 32.9 32.0-36.0 [facility] HospitalUrdcdgcYALVMAFCDK2497-97-34 07:14:00 Test Item Value Reference Range Interpretation Comments Hct (test code = Hct) 28.5 42.0-54.0 [facility] HospitalXxinruuPAVQEROHBC5103-13-92 07:14:00 Test Item Value Reference Range Interpretation Comments MCV (test code = MCV) 84.1 80.0-94.0 [facility] HospitalBnldlfrUMUXLVLGAD1495-34-45 07:14:00 Test Item Value Reference Range Interpretation Comments RBC (test code = RBC) 3.39 4.70-6.10 [facility] HospitalHlpnhvuSFCQHIJJIK8175-70-89 07:14:00 Test Item Value Reference Range Interpretation Comments MCH (test code = MCH) 27.6 pg 27.0-31.0 [facility] HospitalAsyfkgvCWVOPSSMBYNN1530-65-97 07:14:00 Test Item Value Reference Range Interpretation Comments AGAP (test code = AGAP) 11.9 10.0-20.0 [facility] HospitalIurzqfrCNSJVEDTNZJL9426-54-04 07:14:00 Test Item Value Reference Range Interpretation Comments eGFR (test code = eGFR) 96 [facility]FpzgjwfTZNGIMIKMMFE6063-10-69 07:14:00 Test Item Value Reference Range Interpretation Comments BUN (test code = BUN) 17 7-22 [facility] HospitalPyeirivRMCYVDIPRMOP6035-17-79 07:14:00 Test Item Value Reference Range Interpretation Comments Glucose Lvl (test code = Glucose Lvl) 79 70-99 [facility] HospitalRtrqjjrYYVWIMNJLOBB4481-98-62 07:14:00 Test Item Value Reference Range Interpretation Comments Calcium Lvl (test code = Calcium Lvl) 7.6 8.5-10.5 [facility] HospitalSlktzjfHDUJNACUPOWV4567-18-30 07:14:00 Test Item Value Reference Range Interpretation Comments Chloride Lvl (test code = Chloride Lvl) 108 95-109 [facility] HospitalUyoqclhOLELTGWTQNWH7214-35-30 07:14:00 Test Item Value Reference Range Interpretation Comments Potassium Lvl (test code = Potassium 3.9 3.5-5.1 Lvl) [facility] HospitalAnhnwzwHPYALDRBQDNV0062-72-66 07:14:00 Test Item Value Reference Range Interpretation Comments Sodium Lvl (test code = Sodium Lvl) 140 135-145 [facility] HospitalKrchyznABEAUBWVRBHI6585-12-38 07:14:00 Test Item Value Reference Range Interpretation Comments Creatinine Lvl (test code = Creatinine 0.72 0.50-1.40 Lvl) [facility]OejsnneVYBYWYPMGNJT3313-60-89 07:14:00 Test Item Value Reference Range Interpretation Comments CO2 (test code = CO2) 24 24-32 [facility] HospitalGvthpabOYKAWPFFSG8605-56-38 07:14:00 Test Item Value Reference Range Interpretation Comments Platelet (test code = Platelet) 136 133-450 [facility] HospitalSoeauzeHUGVUAHQIU9549-97-37 07:14:00 Test Item Value Reference Range Interpretation Comments MPV (test code = MPV) 8.5 7.4-10.4 [facility] HospitalJmmznikLNRWCEELLR9324-32-34 07:14:00 Test Item Value Reference Range Interpretation Comments RDW (test code = RDW) 17.9 11.5-14.5 [facility] HospitalCgozralBGQOYWHJZP2120-35-97 07:14:00 Test Item Value Reference Range Interpretation Comments WBC (test code = WBC) 5.4 3.7-10.4 [facility]XrbclxqCXOMSESBOW8439-43-90 07:14:00 Test Item Value Reference Range Interpretation Comments Hgb (test code = Hgb) 9.4 14.0-18.0 [facility] HospitalWsdpozlZETGAOSTAB3341-56-61 07:14:00 Test Item Value Reference Range Interpretation Comments MCHC (test code = MCHC) 32.9 32.0-36.0 [facility] HospitalWfqwddqLNCNIKSOES8503-25-75 07:14:00 Test Item Value Reference Range Interpretation Comments Hct (test code = Hct) 28.5 42.0-54.0 [facility] HospitalYzmeojxZHZPFOQOAJ9179-66-44 07:14:00 Test Item Value Reference Range Interpretation Comments MCV (test code = MCV) 84.1 80.0-94.0 [facility] HospitalMxmlrwzIXHIHASMPG2407-58-81 07:14:00 Test Item Value Reference Range Interpretation Comments RBC (test code = RBC) 3.39 4.70-6.10 [facility] HospitalMojrijmFEJBRYRJRN1781-54-33 07:14:00 Test Item Value Reference Range Interpretation Comments MCH (test code = MCH) 27.6 pg 27.0-31.0 [facility] HospitalKcutardZTYUWBXRCBKZ1061-28-29 07:14:00 Test Item Value Reference Range Interpretation Comments AGAP (test code = AGAP) 11.9 10.0-20.0 [facility]AfonkxrCRJUCXLLABRZ3593-39-51 07:14:00 Test Item Value Reference Range Interpretation Comments eGFR (test code = eGFR) 96 [facility] HospitalBdomxdyNCLZJNQZSBPI3041-58-77 07:14:00 Test Item Value Reference Range Interpretation Comments BUN (test code = BUN) 17 7-22 [facility]UffywjdZSGNCLWYUVTG4092-02-64 07:14:00 Test Item Value Reference Range Interpretation Comments Glucose Lvl (test code = Glucose Lvl) 79 70-99 [facility] HospitalNitopynMMOLNWUPZPCN0257-34-19 07:14:00 Test Item Value Reference Range Interpretation Comments Calcium Lvl (test code = Calcium Lvl) 7.6 8.5-10.5 [facility] HospitalIysxdjvGTRTVOMMZRKG2775-23-65 07:14:00 Test Item Value Reference Range Interpretation Comments Chloride Lvl (test code = Chloride Lvl) 108 95-109 [facility] HospitalRhotldrSFWLWTWUFEOK4837-23-33 07:14:00 Test Item Value Reference Range Interpretation Comments Potassium Lvl (test code = Potassium 3.9 3.5-5.1 Lvl) [facility] HospitalPnrzzakAKUVWAEDXQEX3527-30-52 07:14:00 Test Item Value Reference Range Interpretation Comments Sodium Lvl (test code = Sodium Lvl) 140 135-145 [facility] HospitalVvknoqgBZAUPCBKLUDQ0412-69-89 07:14:00 Test Item Value Reference Range Interpretation Comments Creatinine Lvl (test code = Creatinine 0.72 0.50-1.40 Lvl) [facility] HospitalMyvyagtYUTBETQLSXLB8277-03-26 07:14:00 Test Item Value Reference Range Interpretation Comments CO2 (test code = CO2) 24 24-32 [facility] HospitalGovmffoUCJZRHUDTE0629-23-80 07:14:00 Test Item Value Reference Range Interpretation Comments Platelet (test code = Platelet) 136 133-450 [facility] HospitalKnunvbcRSVVHDJYBE6608-29-40 07:14:00 Test Item Value Reference Range Interpretation Comments MPV (test code = MPV) 8.5 7.4-10.4 [facility] HospitalQgbtewdFFYGBSZXYN2934-87-45 07:14:00 Test Item Value Reference Range Interpretation Comments RDW (test code = RDW) 17.9 11.5-14.5 [facility] HospitalYckmrpuETCGLUJTRY2535-74-07 07:14:00 Test Item Value Reference Range Interpretation Comments WBC (test code = WBC) 5.4 3.7-10.4 [facility] HospitalEowwjvrPPQGEMTNHE4379-23-49 07:14:00 Test Item Value Reference Range Interpretation Comments Hgb (test code = Hgb) 9.4 14.0-18.0 [facility] HospitalLmsusfmVUGPKYLXVH0407-71-38 07:14:00 Test Item Value Reference Range Interpretation Comments MCHC (test code = MCHC) 32.9 32.0-36.0 [facility] HospitalLxldyqqDPHBWVNOIL6461-73-51 07:14:00 Test Item Value Reference Range Interpretation Comments Hct (test code = Hct) 28.5 42.0-54.0 [facility] HospitalQuxhcvbPEGEUXDKVO6697-12-23 07:14:00 Test Item Value Reference Range Interpretation Comments MCV (test code = MCV) 84.1 80.0-94.0 [facility] HospitalDxifkuvWQWAAKVCCS5936-72-44 07:14:00 Test Item Value Reference Range Interpretation Comments RBC (test code = RBC) 3.39 4.70-6.10 [facility] HospitalAmbuekvGLIPIYOTGC5612-23-71 07:14:00 Test Item Value Reference Range Interpretation Comments MCH (test code = MCH) 27.6 pg 27.0-31.0 [facility] HospitalLtzzclsIGBFNLDBOHUF2882-12-89 07:14:00 Test Item Value Reference Range Interpretation Comments AGAP (test code = AGAP) 11.9 10.0-20.0 [facility] HospitalFhwmilsPMOIWOHQOXXU6753-07-31 07:14:00 Test Item Value Reference Range Interpretation Comments eGFR (test code = eGFR) 96 [facility] HospitalPxzkcvqDOPEXSMREHGK2484-90-18 07:14:00 Test Item Value Reference Range Interpretation Comments BUN (test code = BUN) 17 7-22 [facility]YwuqknqLBQSZJOTZRNQ6946-51-26 07:14:00 Test Item Value Reference Range Interpretation Comments Glucose Lvl (test code = Glucose Lvl) 79 70-99 [facility] HospitalDjbxybuMFHCRDYGEYPZ0973-54-01 07:14:00 Test Item Value Reference Range Interpretation Comments Calcium Lvl (test code = Calcium Lvl) 7.6 8.5-10.5 [facility]IimlalwLVCDGYWRCMTW8395-29-55 07:14:00 Test Item Value Reference Range Interpretation Comments Chloride Lvl (test code = Chloride Lvl) 108 95-109 [facility] HospitalWhvutozOWJXVSKPLIPJ1488-05-28 07:14:00 Test Item Value Reference Range Interpretation Comments Potassium Lvl (test code = Potassium 3.9 3.5-5.1 Lvl) [facility] HospitalScuxfxnGKAYCODCZWXI6425-55-13 07:14:00 Test Item Value Reference Range Interpretation Comments Sodium Lvl (test code = Sodium Lvl) 140 135-145 [facility] HospitalOsugxsbPAEZFUFFJRZF7460-81-48 07:14:00 Test Item Value Reference Range Interpretation Comments Creatinine Lvl (test code = Creatinine 0.72 0.50-1.40 Lvl) [facility] HospitalUixogvrLFHISOVWTZLO8981-60-35 07:14:00 Test Item Value Reference Range Interpretation Comments CO2 (test code = CO2) 24 24-32 [facility] HospitalPmcsmiiDXBZNORFCG5140-88-40 07:14:00 Test Item Value Reference Range Interpretation Comments Platelet (test code = Platelet) 136 133-450 [facility] HospitalXcjgkglURZTWRCSRA3397-20-09 07:14:00 Test Item Value Reference Range Interpretation Comments MPV (test code = MPV) 8.5 7.4-10.4 [facility] HospitalSfuleppUZZHWVOCAP4320-35-32 07:14:00 Test Item Value Reference Range Interpretation Comments RDW (test code = RDW) 17.9 11.5-14.5 [facility] HospitalUcufosmEUTIMKHQFC5533-41-02 07:14:00 Test Item Value Reference Range Interpretation Comments WBC (test code = WBC) 5.4 3.7-10.4 [facility] HospitalHubiiplLQVVKVXGNR0964-77-63 07:14:00 Test Item Value Reference Range Interpretation Comments Hgb (test code = Hgb) 9.4 14.0-18.0 [facility] HospitalHhyritvPTHRJIBULP9549-46-84 07:14:00 Test Item Value Reference Range Interpretation Comments MCHC (test code = MCHC) 32.9 32.0-36.0 [facility] HospitalHmbxlioXXANQHIRES0547-52-92 07:14:00 Test Item Value Reference Range Interpretation Comments Hct (test code = Hct) 28.5 42.0-54.0 [facility]OyoovknYVIQLHBGPN6868-52-97 07:14:00 Test Item Value Reference Range Interpretation Comments MCV (test code = MCV) 84.1 80.0-94.0 [facility] HospitalVktbcmaIECYLRMCAT2776-67-60 07:14:00 Test Item Value Reference Range Interpretation Comments RBC (test code = RBC) 3.39 4.70-6.10 [facility] HospitalElhqqgaQLRXUMTQSR9265-90-94 07:14:00 Test Item Value Reference Range Interpretation Comments MCH (test code = MCH) 27.6 pg 27.0-31.0 [facility] [employer]2018-10-24 23:19:00 Test Item Value Reference Range Interpretation Comments Troponin-I (test code no gt See_Comment [Auto mated message] The = Troponin-I) system which g enerated this result transmit jw reference range : <=0.40. The reference r bret was not used to interpr et this result as mateo l/abnormal. [facility] 23:19:00 Test Item Value Reference Range Interpretation Comments Troponin-I (test code no gt See_Comment [Auto mated message] The = Troponin-I) system which g enerated this result transmit jw reference range : <=0.40. The reference r bret was not used to interpr et this result as mateo l/abnormal. [facility] [employer]2018-10-24 23:19:00 Test Item Value Reference Range Interpretation Comments Troponin-I (test code no gt See_Comment [Auto mated message] The = Troponin-I) system which g enerated this result transmit wj reference range : <=0.40. The reference r bret was not used to interpr et this result as mateo l/abnormal. [facility] [employer]2018-10-24 23:19:00 Test Item Value Reference Range Interpretation Comments Troponin-I (test code no gt See_Comment [Auto mated message] The = Troponin-I) system which g enerated this result transmit jw reference range : <=0.40. The reference r bret was not used to interpr et this result as mateo l/abnormal. [facility] 23:19:00 Test Item Value Reference Range Interpretation Comments Troponin-I (test code no gt See_Comment [Auto mated message] The = Troponin-I) system which g enerated this result transmit jw reference range : <=0.40. The reference r bret was not used to interpr et this result as mateo l/abnormal. [facility]Furnish.co.ukDZGQCXK5892-91-60 23:19:00 Test Item Value Reference Range Interpretation Comments Troponin-I (test code no gt See_Comment [Auto mated message] The = Troponin-I) system which g enerated this result transmit jw reference range : <=0.40. The reference r bret was not used to interpr et this result as mateo l/abnormal. [facility] 23:19:00 Test Item Value Reference Range Interpretation Comments Troponin-I (test code no gt See_Comment [Auto mated message] The = Troponin-I) system which g enerated this result transmit jw reference range : <=0.40. The reference r bret was not used to interpr et this result as mateo l/abnormal. [facility] 23:19:00 Test Item Value Reference Range Interpretation Comments Troponin-I (test code no gt See_Comment [Auto mated message] The = Troponin-I) system which g enerated this result transmit jw reference range : <=0.40. The reference r bret was not used to interpr et this result as mateo l/abnormal. [facility] CentralFurnish.co.ukDGSHALE9313-13-63 17:36:00 Test Item Value Reference Range Interpretation Comments Troponin-I (test code no gt See_Comment [Auto mated message] The = Troponin-I) system which g enerated this result transmit jw reference range : <=0.40. The reference r bret was not used to interpr et this result as mateo l/abnormal. [facility] 17:36:00 Test Item Value Reference Range Interpretation Comments Troponin-I (test code no gt See_Comment [Auto mated message] The = Troponin-I) system which g enerated this result transmit jw reference range : <=0.40. The reference r bret was not used to interpr et this result as mateo l/abnormal. [facility] 17:36:00 Test Item Value Reference Range Interpretation Comments Troponin-I (test code no gt See_Comment [Auto mated message] The = Troponin-I) system which g enerated this result transmit jw reference range : <=0.40. The reference r bret was not used to interpr et this result as mateo l/abnormal. [facility].co.ukBXGQEDB5688-77-46 17:36:00 Test Item Value Reference Range Interpretation Comments Troponin-I (test code no gt See_Comment [Auto mated message] The = Troponin-I) system which g enerated this result transmit jw reference range : <=0.40. The reference r bret was not used to interpr et this result as mateo l/abnormal. [facility] 17:36:00 Test Item Value Reference Range Interpretation Comments Troponin-I (test code no gt See_Comment [Auto mated message] The = Troponin-I) system which g enerated this result transmit jw reference range : <=0.40. The reference r bret was not used to interpr et this result as mateo l/abnormal. [facility] 17:36:00 Test Item Value Reference Range Interpretation Comments Troponin-I (test code no gt See_Comment [Auto mated message] The = Troponin-I) system which g enerated this result transmit jw reference range : <=0.40. The reference r bret was not used to interpr et this result as mateo l/abnormal. [facility] 17:36:00 Test Item Value Reference Range Interpretation Comments Troponin-I (test code no gt See_Comment [Auto mated message] The = Troponin-I) system which g enerated this result transmit jw reference range : <=0.40. The reference r bret was not used to interpr et this result as mateo l/abnormal. [facility] [employer]2018-10-24 17:36:00 Test Item Value Reference Range Interpretation Comments Troponin-I (test code no gt See_Comment [Auto mated message] The = Troponin-I) system which g enerated this result transmit jw reference range : <=0.40. The reference r bret was not used to interpr et this result as mateo l/abnormal. [facility]GIKLIQU3412-[facility]-77 10:52:00 Test Item Value Reference Range Interpretation Comments Neutrophils # (test code = Neutrophils 4.1 1.5-8.1 #) [facility]BqkahtjOCYEUKFCZX3414-55-08 10:52:00 Test Item Value Reference Range Interpretation Comments Basophils (test code = 1.3 See_Comment [Aut omated message] The Basophils) system which ge nerated this result tra nsmitted reference range : <=1.0. The reference r bret was not used to int erpret this result as normal/abnormal . [facility] HospitalVtlolbvVZDSDZAUCB5500-18-77 10:52:00 Test Item Value Reference Range Interpretation Comments Monocytes # (test code 0.7 See_Comment [Aut omated message] The = Monocytes #) system which generated this result tra nsmitted reference range : <=0.8. The reference r bret was not used to int erpret this result as normal/abnormal . [facility] HospitalUlicbpyWYURNOSVFV4182-36-01 10:52:00 Test Item Value Reference Range Interpretation Comments Lymphocytes # (test code = Lymphocytes 1.3 1.0-5.5 #) [facility] HospitalCdvntqvBDWMNOXSIC6923-85-40 10:52:00 Test Item Value Reference Range Interpretation Comments Eosinophils # (test code 0.1 See_Comment [A utomated message] The = Eosinophils #) system whic h generated this result tra nsmitted reference range : <=0.5. The reference r bret was not used to int erpret this result as normal/abnormal . [facility] HospitalWmfswafAKWHTSGTVS8530-36-10 10:52:00 Test Item Value Reference Range Interpretation Comments Basophils # (test code 0.1 See_Comment [Aut omated message] The = Basophils #) system which generated this result tra nsmitted reference range : <=0.2. The reference r bret was not used to int erpret this result as normal/abnormal . [facility] HospitalQmdpueeALUDFJVHGC0923-70-77 10:52:00 Test Item Value Reference Range Interpretation Comments Lymphocytes (test code = Lymphocytes) 20.5 20.0-40.0 [facility] HospitalBcoqtddXMJZUHESHB2355-04-51 10:52:00 Test Item Value Reference Range Interpretation Comments Eosinophils (test code = 1.9 See_Comment [A utomated message] The Eosinophils) system which ge nerated this result tra nsmitted reference range : <=4.0. The reference r bret was not used to int erpret this result as normal/abnormal . [facility] HospitalDqjfwkaCYKGDXDBUG3582-18-62 10:52:00 Test Item Value Reference Range Interpretation Comments Monocytes (test code = Monocytes) 11.0 2.0-12.0 [facility] HospitalUjbbsubJOEFZEORJX4518-25-03 10:52:00 Test Item Value Reference Range Interpretation Comments Segs (test code = Segs) 65.3 45.0-75.0 [facility] HospitalGtxqphbPBKRIXHYOE2943-33-82 10:52:00 Test Item Value Reference Range Interpretation Comments WBC (test code = WBC) 6.2 3.7-10.4 [facility] HospitalRrdhpawCYPZZHHGXX5739-63-70 10:52:00 Test Item Value Reference Range Interpretation Comments MCH (test code = MCH) 27.3 pg 27.0-31.0 [facility] HospitalPffarbjUKZXFPKTZP8619-49-51 10:52:00 Test Item Value Reference Range Interpretation Comments MCV (test code = MCV) 83.7 80.0-94.0 [facility] HospitalNbbycdkETAQQAIHBD9610-13-42 10:52:00 Test Item Value Reference Range Interpretation Comments RBC (test code = RBC) 3.80 4.70-6.10 [facility] HospitalNmqadcyWFDOOHITYM1360-68-71 10:52:00 Test Item Value Reference Range Interpretation Comments Hct (test code = Hct) 31.8 42.0-54.0 [facility] HospitalEqltwfjQFQUDPZNTR6911-17-34 10:52:00 Test Item Value Reference Range Interpretation Comments Hgb (test code = Hgb) 10.4 14.0-18.0 [facility] HospitalBmxcteoSMYMYWSXXN5443-00-13 10:52:00 Test Item Value Reference Range Interpretation Comments RDW (test code = RDW) 17.7 11.5-14.5 [facility] HospitalSgroimxVNOFKIFYVH4139-86-36 10:52:00 Test Item Value Reference Range Interpretation Comments MCHC (test code = MCHC) 32.6 32.0-36.0 [facility] HospitalWbgimjtLNDMHYCAFZ3764-35-96 10:52:00 Test Item Value Reference Range Interpretation Comments MPV (test code = MPV) 8.7 7.4-10.4 [facility] HospitalFqbojliXQTDOTWUNF8707-91-31 10:52:00 Test Item Value Reference Range Interpretation Comments Platelet (test code = Platelet) 167 133-450 [facility] HospitalBnaleucEYYUJYKPWE6691-79-96 10:52:00 Test Item Value Reference Range Interpretation Comments Neutrophils # (test code = Neutrophils 4.1 1.5-8.1 #) [facility] HospitalPgbaeqbFQKTJBVTYL7411-67-38 10:52:00 Test Item Value Reference Range Interpretation Comments Basophils (test code = 1.3 See_Comment [Aut omated message] The Basophils) system which ge nerated this result tra nsmitted reference range : <=1.0. The reference r bret was not used to int erpret this result as normal/abnormal . [facility] HospitalQjkxxvjCPELINGNZS0889-59-16 10:52:00 Test Item Value Reference Range Interpretation Comments Monocytes # (test code 0.7 See_Comment [Aut omated message] The = Monocytes #) system which generated this result tra nsmitted reference range : <=0.8. The reference r bret was not used to int erpret this result as normal/abnormal . [facility] HospitalLeiwgzgMUUCUEWJRO0081-98-48 10:52:00 Test Item Value Reference Range Interpretation Comments Lymphocytes # (test code = Lymphocytes 1.3 1.0-5.5 #) [facility] HospitalFtyjzyoARYBZYPOGE6725-88-31 10:52:00 Test Item Value Reference Range Interpretation Comments Eosinophils # (test code 0.1 See_Comment [A utomated message] The = Eosinophils #) system wh h generated this result tra nsmitted reference range : <=0.5. The reference r bret was not used to int erpret this result as normal/abnormal . [facility] HospitalXrjdqikBWPVMFKJOQ2597-26-18 10:52:00 Test Item Value Reference Range Interpretation Comments Basophils # (test code 0.1 See_Comment [Aut omated message] The = Basophils #) system which generated this result tra nsmitted reference range : <=0.2. The reference r bret was not used to int erpret this result as normal/abnormal . [facility] HospitalHfovyzbVJTSFXWQAM9536-76-42 10:52:00 Test Item Value Reference Range Interpretation Comments Lymphocytes (test code = Lymphocytes) 20.5 20.0-40.0 [facility] HospitalUbghzxmFHPKFKMCQJ8160-77-81 10:52:00 Test Item Value Reference Range Interpretation Comments Eosinophils (test code = 1.9 See_Comment [A utomated message] The Eosinophils) system which ge nerated this result tra nsmitted reference range : <=4.0. The reference r bret was not used to int erpret this result as normal/abnormal . [facility] HospitalPghjerwTDJOJHFDWQ6448-80-83 10:52:00 Test Item Value Reference Range Interpretation Comments Monocytes (test code = Monocytes) 11.0 2.0-12.0 [facility] HospitalEmczzrwSSTIIJWBIO8303-42-02 10:52:00 Test Item Value Reference Range Interpretation Comments Segs (test code = Segs) 65.3 45.0-75.0 [facility] HospitalLmvvbsyIFWNCWQBYP9206-82-52 10:52:00 Test Item Value Reference Range Interpretation Comments WBC (test code = WBC) 6.2 3.7-10.4 [facility] HospitalSlteqhvIUILYEUSPW9836-67-00 10:52:00 Test Item Value Reference Range Interpretation Comments MCH (test code = MCH) 27.3 pg 27.0-31.0 [facility] HospitalWdqyaqhBDMQNUJRBV7944-43-23 10:52:00 Test Item Value Reference Range Interpretation Comments MCV (test code = MCV) 83.7 80.0-94.0 [facility] HospitalVtwdtodPLQBNZHQHE5858-46-52 10:52:00 Test Item Value Reference Range Interpretation Comments RBC (test code = RBC) 3.80 4.70-6.10 [facility] HospitalGppfiebGWBYDNUAWL5633-75-74 10:52:00 Test Item Value Reference Range Interpretation Comments Hct (test code = Hct) 31.8 42.0-54.0 [facility] HospitalBrbiydeDGQQRIDCJQ5330-14-81 10:52:00 Test Item Value Reference Range Interpretation Comments Hgb (test code = Hgb) 10.4 14.0-18.0 [facility] HospitalIawspwlEPFNPEVGDM7666-56-20 10:52:00 Test Item Value Reference Range Interpretation Comments RDW (test code = RDW) 17.7 11.5-14.5 [facility] HospitalChdlbxuTNXKLTTBKJ8359-64-90 10:52:00 Test Item Value Reference Range Interpretation Comments MCHC (test code = MCHC) 32.6 32.0-36.0 [facility] HospitalAtbjldlUGKJYEJXNQ4499-11-07 10:52:00 Test Item Value Reference Range Interpretation Comments MPV (test code = MPV) 8.7 7.4-10.4 [facility] HospitalPhdzzntKOJMCEOHXO3341-35-44 10:52:00 Test Item Value Reference Range Interpretation Comments Platelet (test code = Platelet) 167 133-450 [facility] HospitalShgmcddXJVDBZVWES4255-95-12 10:52:00 Test Item Value Reference Range Interpretation Comments Neutrophils # (test code = Neutrophils 4.1 1.5-8.1 #) [facility] HospitalLfjyzmxZXHCXZDKPR3756-29-59 10:52:00 Test Item Value Reference Range Interpretation Comments Basophils (test code = 1.3 See_Comment [Aut omated message] The Basophils) system which ge nerated this result tra nsmitted reference range : <=1.0. The reference r bret was not used to int erpret this result as normal/abnormal . [facility] HospitalSxvmlrwZRNPAUWUMI2807-07-11 10:52:00 Test Item Value Reference Range Interpretation Comments Monocytes # (test code 0.7 See_Comment [Aut omated message] The = Monocytes #) system which generated this result tra nsmitted reference range : <=0.8. The reference r bret was not used to int erpret this result as normal/abnormal . [facility] HospitalUxqvfenSDMTPLOSMK5138-41-68 10:52:00 Test Item Value Reference Range Interpretation Comments Lymphocytes # (test code = Lymphocytes 1.3 1.0-5.5 #) [facility] HospitalMlhjtsmYYKMRBJJBZ9947-05-91 10:52:00 Test Item Value Reference Range Interpretation Comments Eosinophils # (test code 0.1 See_Comment [A utomated message] The = Eosinophils #) system whic h generated this result tra nsmitted reference range : <=0.5. The reference r bret was not used to int erpret this result as normal/abnormal . [facility] HospitalNppxjhzTVJKXKVKYX6945-66-39 10:52:00 Test Item Value Reference Range Interpretation Comments Basophils # (test code 0.1 See_Comment [Aut omated message] The = Basophils #) system which generated this result tra nsmitted reference range : <=0.2. The reference r bret was not used to int erpret this result as normal/abnormal . [facility] HospitalFezcaqpRPSZOIIUWU2871-27-61 10:52:00 Test Item Value Reference Range Interpretation Comments Lymphocytes (test code = Lymphocytes) 20.5 20.0-40.0 [facility] HospitalZnholkgLYGMHXKOJX1280-88-24 10:52:00 Test Item Value Reference Range Interpretation Comments Eosinophils (test code = 1.9 See_Comment [A utomated message] The Eosinophils) system which ge nerated this result tra nsmitted reference range : <=4.0. The reference r bret was not used to int erpret this result as normal/abnormal . [facility] HospitalAgnsigaZLHQNCXPOB6835-52-44 10:52:00 Test Item Value Reference Range Interpretation Comments Monocytes (test code = Monocytes) 11.0 2.0-12.0 [facility] HospitalCatgfygUGBQWCYDCE4334-26-81 10:52:00 Test Item Value Reference Range Interpretation Comments Segs (test code = Segs) 65.3 45.0-75.0 [facility] HospitalWxuaojkVYAOYKAGNJ4094-12-21 10:52:00 Test Item Value Reference Range Interpretation Comments WBC (test code = WBC) 6.2 3.7-10.4 [facility] HospitalOcgcsbuRDWHJANQSN6408-93-24 10:52:00 Test Item Value Reference Range Interpretation Comments MCH (test code = MCH) 27.3 pg 27.0-31.0 [facility] HospitalBorcyzpJMWTYZCFSI2448-72-89 10:52:00 Test Item Value Reference Range Interpretation Comments MCV (test code = MCV) 83.7 80.0-94.0 [facility] HospitalLjspvugRJOMLOCPFS8872-47-90 10:52:00 Test Item Value Reference Range Interpretation Comments RBC (test code = RBC) 3.80 4.70-6.10 [facility] HospitalWwrpusbNKVOFDGGBV5397-11-75 10:52:00 Test Item Value Reference Range Interpretation Comments Hct (test code = Hct) 31.8 42.0-54.0 [facility] HospitalCnqypqjMLWNQQWEOV5808-18-89 10:52:00 Test Item Value Reference Range Interpretation Comments Hgb (test code = Hgb) 10.4 14.0-18.0 [facility] HospitalYowyvndJSMITITSHM9868-49-57 10:52:00 Test Item Value Reference Range Interpretation Comments RDW (test code = RDW) 17.7 11.5-14.5 [facility] HospitalBucxadmBGJSAPEODJ3265-80-12 10:52:00 Test Item Value Reference Range Interpretation Comments MCHC (test code = MCHC) 32.6 32.0-36.0 [facility] HospitalKpcfpafBMAGSYRIAE4338-84-72 10:52:00 Test Item Value Reference Range Interpretation Comments MPV (test code = MPV) 8.7 7.4-10.4 [facility] HospitalKxzwncnHDWHEKBAQH3767-49-41 10:52:00 Test Item Value Reference Range Interpretation Comments Platelet (test code = Platelet) 167 133-450 [facility] HospitalCpknxfzHYYBIGCGRJ1770-18-88 10:52:00 Test Item Value Reference Range Interpretation Comments Neutrophils # (test code = Neutrophils 4.1 1.5-8.1 #) [facility] HospitalWjlurbuKTRJJQHFDJ8293-35-04 10:52:00 Test Item Value Reference Range Interpretation Comments Basophils (test code = 1.3 See_Comment [Aut omated message] The Basophils) system which ge nerated this result tra nsmitted reference range : <=1.0. The reference r bret was not used to int erpret this result as normal/abnormal . [facility] HospitalKjrtqqkLRMNULBJAN6094-56-52 10:52:00 Test Item Value Reference Range Interpretation Comments Monocytes # (test code 0.7 See_Comment [Aut omated message] The = Monocytes #) system which generated this result tra nsmitted reference range : <=0.8. The reference r bret was not used to int erpret this result as normal/abnormal . [facility] HospitalRcoipmfMCBGKUJYSY3191-38-67 10:52:00 Test Item Value Reference Range Interpretation Comments Lymphocytes # (test code = Lymphocytes 1.3 1.0-5.5 #) [facility] HospitalZiqnybxPOCBHDJPFN5196-50-45 10:52:00 Test Item Value Reference Range Interpretation Comments Eosinophils # (test code 0.1 See_Comment [A utomated message] The = Eosinophils #) system whic h generated this result tra nsmitted reference range : <=0.5. The reference r bret was not used to int erpret this result as normal/abnormal . [facility] HospitalNwdgakqKIQSJOBETU5618-08-60 10:52:00 Test Item Value Reference Range Interpretation Comments Basophils # (test code 0.1 See_Comment [Aut omated message] The = Basophils #) system which generated this result tra nsmitted reference range : <=0.2. The reference r bret was not used to int erpret this result as normal/abnormal . [facility] HospitalVsjphvvNGCKEBDVNB6894-37-64 10:52:00 Test Item Value Reference Range Interpretation Comments Lymphocytes (test code = Lymphocytes) 20.5 20.0-40.0 [facility] HospitalLdnlyvxGKCGSZJXEI5776-42-05 10:52:00 Test Item Value Reference Range Interpretation Comments Eosinophils (test code = 1.9 See_Comment [A utomated message] The Eosinophils) system which ge nerated this result tra nsmitted reference range : <=4.0. The reference r bret was not used to int erpret this result as normal/abnormal . [facility] HospitalNeqnuxnGZYKYARJEW2745-61-39 10:52:00 Test Item Value Reference Range Interpretation Comments Monocytes (test code = Monocytes) 11.0 2.0-12.0 [facility] HospitalOttmodxJKARPIHXGP0187-87-65 10:52:00 Test Item Value Reference Range Interpretation Comments Segs (test code = Segs) 65.3 45.0-75.0 [facility] HospitalIrftnmpAOUYQGKUML7027-67-03 10:52:00 Test Item Value Reference Range Interpretation Comments WBC (test code = WBC) 6.2 3.7-10.4 [facility] HospitalVujncfjYQDKSWADCH9475-32-41 10:52:00 Test Item Value Reference Range Interpretation Comments MCH (test code = MCH) 27.3 pg 27.0-31.0 [facility] HospitalOkcozfqMHPVJNLJGQ9767-51-94 10:52:00 Test Item Value Reference Range Interpretation Comments MCV (test code = MCV) 83.7 80.0-94.0 [facility] HospitalLsedshjOHXSPDODOF3554-10-27 10:52:00 Test Item Value Reference Range Interpretation Comments RBC (test code = RBC) 3.80 4.70-6.10 [facility] HospitalHkaapuzGPSDWRPUQL9028-16-25 10:52:00 Test Item Value Reference Range Interpretation Comments Hct (test code = Hct) 31.8 42.0-54.0 [facility] HospitalMczkwefCWZFHPNDAO1178-30-28 10:52:00 Test Item Value Reference Range Interpretation Comments Hgb (test code = Hgb) 10.4 14.0-18.0 [facility] HospitalZeplkuoDAGAOVHRYJ3021-25-27 10:52:00 Test Item Value Reference Range Interpretation Comments RDW (test code = RDW) 17.7 11.5-14.5 [facility] HospitalXiwgsyrRXAPVAERUA4941-22-06 10:52:00 Test Item Value Reference Range Interpretation Comments MCHC (test code = MCHC) 32.6 32.0-36.0 [facility] HospitalZnrwwctYCRMYEFDIM1009-31-03 10:52:00 Test Item Value Reference Range Interpretation Comments MPV (test code = MPV) 8.7 7.4-10.4 [facility] HospitalYpyotblLSQLEKDPVM3285-83-41 10:52:00 Test Item Value Reference Range Interpretation Comments Platelet (test code = Platelet) 167 133-450 [facility] HospitalMgczekvPYZRGSSUUI1880-30-60 10:52:00 Test Item Value Reference Range Interpretation Comments Neutrophils # (test code = Neutrophils 4.1 1.5-8.1 #) [facility] HospitalJdfunjoQNXHHCFCDJ4619-95-70 10:52:00 Test Item Value Reference Range Interpretation Comments Basophils (test code = 1.3 See_Comment [Aut omated message] The Basophils) system which ge nerated this result tra nsmitted reference range : <=1.0. The reference r bret was not used to int erpret this result as normal/abnormal . [facility] HospitalHgcitfeQZVEGNIEOZ6109-98-47 10:52:00 Test Item Value Reference Range Interpretation Comments Monocytes # (test code 0.7 See_Comment [Aut omated message] The = Monocytes #) system which generated this result tra nsmitted reference range : <=0.8. The reference r bret was not used to int erpret this result as normal/abnormal . [facility] HospitalIpprabfRYFAJDTARI3077-99-74 10:52:00 Test Item Value Reference Range Interpretation Comments Lymphocytes # (test code = Lymphocytes 1.3 1.0-5.5 #) [facility] HospitalLkfbtdyXUZVUKKNQI3827-97-54 10:52:00 Test Item Value Reference Range Interpretation Comments Eosinophils # (test code 0.1 See_Comment [A utomated message] The = Eosinophils #) system whic h generated this result tra nsmitted reference range : <=0.5. The reference r bret was not used to int erpret this result as normal/abnormal . [facility] HospitalCupmitgQQKPSVBFIB4477-47-72 10:52:00 Test Item Value Reference Range Interpretation Comments Basophils # (test code 0.1 See_Comment [Aut omated message] The = Basophils #) system which generated this result tra nsmitted reference range : <=0.2. The reference r bret was not used to int erpret this result as normal/abnormal . [facility] HospitalYartwcrVAAZCLBWNK7914-18-44 10:52:00 Test Item Value Reference Range Interpretation Comments Lymphocytes (test code = Lymphocytes) 20.5 20.0-40.0 [facility] HospitalNsveublXVKTUJAZOP8857-26-37 10:52:00 Test Item Value Reference Range Interpretation Comments Eosinophils (test code = 1.9 See_Comment [A utomated message] The Eosinophils) system which ge nerated this result tra nsmitted reference range : <=4.0. The reference r bret was not used to int erpret this result as normal/abnormal . [facility] HospitalGbdexxuQFSUPKNKQI1245-73-13 10:52:00 Test Item Value Reference Range Interpretation Comments Monocytes (test code = Monocytes) 11.0 2.0-12.0 [facility] HospitalWlerlmsUMXRGGRHKS0752-61-82 10:52:00 Test Item Value Reference Range Interpretation Comments Segs (test code = Segs) 65.3 45.0-75.0 [facility] HospitalYzanjpmMINIYFDUYU3084-54-86 10:52:00 Test Item Value Reference Range Interpretation Comments WBC (test code = WBC) 6.2 3.7-10.4 [facility] HospitalBfmqhrhTSDWRRUZZT5446-48-02 10:52:00 Test Item Value Reference Range Interpretation Comments MCH (test code = MCH) 27.3 pg 27.0-31.0 [facility] HospitalLybelpnVORUOMBBKV2220-68-71 10:52:00 Test Item Value Reference Range Interpretation Comments MCV (test code = MCV) 83.7 80.0-94.0 [facility] HospitalVeuylswWZMVPGFGAJ0721-47-20 10:52:00 Test Item Value Reference Range Interpretation Comments RBC (test code = RBC) 3.80 4.70-6.10 [facility] HospitalGggaztbBFKJHVNLAE1379-98-14 10:52:00 Test Item Value Reference Range Interpretation Comments Hct (test code = Hct) 31.8 42.0-54.0 [facility] HospitalAzqygcmJQLWYWBRZR6948-08-89 10:52:00 Test Item Value Reference Range Interpretation Comments Hgb (test code = Hgb) 10.4 14.0-18.0 [facility] HospitalYeadrgtNHVRKHRJBC5904-46-82 10:52:00 Test Item Value Reference Range Interpretation Comments RDW (test code = RDW) 17.7 11.5-14.5 [facility] HospitalBibjmlrUZVPSKJAKZ7212-57-27 10:52:00 Test Item Value Reference Range Interpretation Comments MCHC (test code = MCHC) 32.6 32.0-36.0 [facility] HospitalVnhzouoGOUQPJXJSR5035-79-06 10:52:00 Test Item Value Reference Range Interpretation Comments MPV (test code = MPV) 8.7 7.4-10.4 [facility] HospitalFlmyocdCXGBYSYPBL1134-12-24 10:52:00 Test Item Value Reference Range Interpretation Comments Platelet (test code = Platelet) 167 133-450 [facility] HospitalSejkoqzDPCOXADPJN6162-82-56 10:52:00 Test Item Value Reference Range Interpretation Comments Neutrophils # (test code = Neutrophils 4.1 1.5-8.1 #) [facility] HospitalQteliqnCMCRULSTAP1798-71-82 10:52:00 Test Item Value Reference Range Interpretation Comments Basophils (test code = 1.3 See_Comment [Aut omated message] The Basophils) system which ge nerated this result tra nsmitted reference range : <=1.0. The reference r bret was not used to int erpret this result as normal/abnormal . [facility] HospitalFhkyaxaJOFYNVBGVV8990-36-38 10:52:00 Test Item Value Reference Range Interpretation Comments Monocytes # (test code 0.7 See_Comment [Aut omated message] The = Monocytes #) system which generated this result tra nsmitted reference range : <=0.8. The reference r bret was not used to int erpret this result as normal/abnormal . [facility]XarjjwnWOALAJPYPQ6050-45-03 10:52:00 Test Item Value Reference Range Interpretation Comments Lymphocytes # (test code = Lymphocytes 1.3 1.0-5.5 #) [facility]GctqexxVFWGHWXPBM4243-63-85 10:52:00 Test Item Value Reference Range Interpretation Comments Eosinophils # (test code 0.1 See_Comment [A utomated message] The = Eosinophils #) system whic h generated this result tra nsmitted reference range : <=0.5. The reference r bret was not used to int erpret this result as normal/abnormal . [facility] HospitalPdqpiloNKXIIINTUK7363-80-77 10:52:00 Test Item Value Reference Range Interpretation Comments Basophils # (test code 0.1 See_Comment [Aut omated message] The = Basophils #) system which generated this result tra nsmitted reference range : <=0.2. The reference r bret was not used to int erpret this result as normal/abnormal . [facility] HospitalIfkciryKUVCMTBFYG5613-82-03 10:52:00 Test Item Value Reference Range Interpretation Comments Lymphocytes (test code = Lymphocytes) 20.5 20.0-40.0 [facility] HospitalOxngstqEKJEIEAKOX4441-63-51 10:52:00 Test Item Value Reference Range Interpretation Comments Eosinophils (test code = 1.9 See_Comment [A utomated message] The Eosinophils) system which ge nerated this result tra nsmitted reference range : <=4.0. The reference r bret was not used to int erpret this result as normal/abnormal . [facility] HospitalPrhxnajDGRBYZOVRE0626-78-43 10:52:00 Test Item Value Reference Range Interpretation Comments Monocytes (test code = Monocytes) 11.0 2.0-12.0 [facility] HospitalTaylubxHENZUQLDTG3742-96-32 10:52:00 Test Item Value Reference Range Interpretation Comments Segs (test code = Segs) 65.3 45.0-75.0 [facility] HospitalEcdyvwcUHGATEMZPX5529-91-14 10:52:00 Test Item Value Reference Range Interpretation Comments WBC (test code = WBC) 6.2 3.7-10.4 [facility] HospitalJozuijxZSEVHHCHZN7682-94-02 10:52:00 Test Item Value Reference Range Interpretation Comments MCH (test code = MCH) 27.3 pg 27.0-31.0 [facility] HospitalAgtkpyiZMYXSMHZTL7106-99-94 10:52:00 Test Item Value Reference Range Interpretation Comments MCV (test code = MCV) 83.7 80.0-94.0 [facility] HospitalZuegaedSRCMAHGDSX9599-38-65 10:52:00 Test Item Value Reference Range Interpretation Comments RBC (test code = RBC) 3.80 4.70-6.10 [facility] HospitalTqinvydHCNUVQJLZE7454-41-06 10:52:00 Test Item Value Reference Range Interpretation Comments Hct (test code = Hct) 31.8 42.0-54.0 [facility] HospitalEwueghjYZLOGJFSNP8353-23-37 10:52:00 Test Item Value Reference Range Interpretation Comments Hgb (test code = Hgb) 10.4 14.0-18.0 [facility] HospitalFkfzdxxFENMODICIG8704-63-60 10:52:00 Test Item Value Reference Range Interpretation Comments RDW (test code = RDW) 17.7 11.5-14.5 [facility] HospitalAmkvgcqATIVRNQEHU0067-94-99 10:52:00 Test Item Value Reference Range Interpretation Comments MCHC (test code = MCHC) 32.6 32.0-36.0 [facility] HospitalJtznsioWJDIDPNLTZ6801-98-24 10:52:00 Test Item Value Reference Range Interpretation Comments MPV (test code = MPV) 8.7 7.4-10.4 [facility] HospitalYdtrknuFHNZVPLCMQ4313-03-09 10:52:00 Test Item Value Reference Range Interpretation Comments Platelet (test code = Platelet) 167 133-450 [facility] HospitalIptowfmHIZBREEUOI2082-66-35 10:52:00 Test Item Value Reference Range Interpretation Comments Neutrophils # (test code = Neutrophils 4.1 1.5-8.1 #) [facility] HospitalJdirtidGUVWLXJFJL3246-92-84 10:52:00 Test Item Value Reference Range Interpretation Comments Basophils (test code = 1.3 See_Comment [Aut omated message] The Basophils) system which ge nerated this result tra nsmitted reference range : <=1.0. The reference r bret was not used to int erpret this result as normal/abnormal . [facility] HospitalZmdkxkdTJPXQYXILM5484-52-12 10:52:00 Test Item Value Reference Range Interpretation Comments Monocytes # (test code 0.7 See_Comment [Aut omated message] The = Monocytes #) system which generated this result tra nsmitted reference range : <=0.8. The reference r bret was not used to int erpret this result as normal/abnormal . [facility] HospitalLcswttcLHIQYENUHN2638-29-07 10:52:00 Test Item Value Reference Range Interpretation Comments Lymphocytes # (test code = Lymphocytes 1.3 1.0-5.5 #) [facility] HospitalNsduaarCRZYDLLPLU4706-47-11 10:52:00 Test Item Value Reference Range Interpretation Comments Eosinophils # (test code 0.1 See_Comment [A utomated message] The = Eosinophils #) system whic h generated this result tra nsmitted reference range : <=0.5. The reference r bret was not used to int erpret this result as normal/abnormal . [facility] HospitalDgzzewkVKHWOWYDSU4507-26-43 10:52:00 Test Item Value Reference Range Interpretation Comments Basophils # (test code 0.1 See_Comment [Aut omated message] The = Basophils #) system which generated this result tra nsmitted reference range : <=0.2. The reference r bret was not used to int erpret this result as normal/abnormal . [facility] HospitalBmralrzCSENRMCDJD3583-32-17 10:52:00 Test Item Value Reference Range Interpretation Comments Lymphocytes (test code = Lymphocytes) 20.5 20.0-40.0 [facility] HospitalIqmwivsWOETVOIUVI8646-23-49 10:52:00 Test Item Value Reference Range Interpretation Comments Eosinophils (test code = 1.9 See_Comment [A utomated message] The Eosinophils) system which ge nerated this result tra nsmitted reference range : <=4.0. The reference r bret was not used to int erpret this result as normal/abnormal . [facility] HospitalBwyyelvQYNQRCYSGS8193-42-88 10:52:00 Test Item Value Reference Range Interpretation Comments Monocytes (test code = Monocytes) 11.0 2.0-12.0 [facility] HospitalSzrhilfECQISKYEBC1473-94-38 10:52:00 Test Item Value Reference Range Interpretation Comments Segs (test code = Segs) 65.3 45.0-75.0 [facility] HospitalSbgzxkgRKUMDGCQWU4574-41-80 10:52:00 Test Item Value Reference Range Interpretation Comments WBC (test code = WBC) 6.2 3.7-10.4 [facility] HospitalRkdvtypOAXHGXAVPW0775-72-93 10:52:00 Test Item Value Reference Range Interpretation Comments MCH (test code = MCH) 27.3 pg 27.0-31.0 [facility] HospitalVsypbqqEPBVYLSJXD0285-81-45 10:52:00 Test Item Value Reference Range Interpretation Comments MCV (test code = MCV) 83.7 80.0-94.0 [facility] HospitalFfimclwCOYLFMINZY7382-34-53 10:52:00 Test Item Value Reference Range Interpretation Comments RBC (test code = RBC) 3.80 4.70-6.10 [facility] HospitalCfpgbxyKOYSVLIVGA0659-33-54 10:52:00 Test Item Value Reference Range Interpretation Comments Hct (test code = Hct) 31.8 42.0-54.0 [facility] HospitalZtitemfOWSVEBRBTT9984-08-28 10:52:00 Test Item Value Reference Range Interpretation Comments Hgb (test code = Hgb) 10.4 14.0-18.0 [facility] HospitalMcuuxvhMWSPITAFZB0793-03-55 10:52:00 Test Item Value Reference Range Interpretation Comments RDW (test code = RDW) 17.7 11.5-14.5 [facility] HospitalAaebyitACHVKMGSGA0172-02-30 10:52:00 Test Item Value Reference Range Interpretation Comments MCHC (test code = MCHC) 32.6 32.0-36.0 [facility] HospitalLpzwqvbQCDWOOQQLB2998-57-70 10:52:00 Test Item Value Reference Range Interpretation Comments MPV (test code = MPV) 8.7 7.4-10.4 [facility] HospitalUfjirldVVNSBWEYHD6212-32-17 10:52:00 Test Item Value Reference Range Interpretation Comments Platelet (test code = Platelet) 167 133-450 [facility] HospitalIpdagkmLYWOQKNZWX4761-59-29 10:52:00 Test Item Value Reference Range Interpretation Comments Neutrophils # (test code = Neutrophils 4.1 1.5-8.1 #) [facility] HospitalFmcotqxXKLXOBMWVB6789-20-76 10:52:00 Test Item Value Reference Range Interpretation Comments Basophils (test code = 1.3 See_Comment [Aut omated message] The Basophils) system which ge nerated this result tra nsmitted reference range : <=1.0. The reference r bret was not used to int erpret this result as normal/abnormal . [facility] HospitalNlasfkrVCNQDMLGZM1930-97-81 10:52:00 Test Item Value Reference Range Interpretation Comments Monocytes # (test code 0.7 See_Comment [Aut omated message] The = Monocytes #) system which generated this result tra nsmitted reference range : <=0.8. The reference r bret was not used to int erpret this result as normal/abnormal . [facility] HospitalGwsibzxIXPQYWGGSQ7545-64-83 10:52:00 Test Item Value Reference Range Interpretation Comments Lymphocytes # (test code = Lymphocytes 1.3 1.0-5.5 #) [facility] HospitalOwuqryxFSXVUXJWHO0172-51-86 10:52:00 Test Item Value Reference Range Interpretation Comments Eosinophils # (test code 0.1 See_Comment [A utomated message] The = Eosinophils #) system whic h generated this result tra nsmitted reference range : <=0.5. The reference r bret was not used to int erpret this result as normal/abnormal . [facility] HospitalXpsrhdrJKPSKYKQVK2099-31-14 10:52:00 Test Item Value Reference Range Interpretation Comments Basophils # (test code 0.1 See_Comment [Aut omated message] The = Basophils #) system which generated this result tra nsmitted reference range : <=0.2. The reference r bret was not used to int erpret this result as normal/abnormal . [facility] HospitalRomjnvcUMKZIIJHRU4342-87-64 10:52:00 Test Item Value Reference Range Interpretation Comments Lymphocytes (test code = Lymphocytes) 20.5 20.0-40.0 [facility] HospitalRgfzgzkTWJGJMABST0064-86-05 10:52:00 Test Item Value Reference Range Interpretation Comments Eosinophils (test code = 1.9 See_Comment [A utomated message] The Eosinophils) system which ge nerated this result tra nsmitted reference range : <=4.0. The reference r bret was not used to int erpret this result as normal/abnormal . [facility] HospitalZpqjivsJGVIHUQQTT3265-23-59 10:52:00 Test Item Value Reference Range Interpretation Comments Monocytes (test code = Monocytes) 11.0 2.0-12.0 [facility] HospitalCjzbldcRMQNESZNUU6256-70-26 10:52:00 Test Item Value Reference Range Interpretation Comments Segs (test code = Segs) 65.3 45.0-75.0 [facility] HospitalRxcykvvHCDPSKBPFR0334-47-23 10:52:00 Test Item Value Reference Range Interpretation Comments WBC (test code = WBC) 6.2 3.7-10.4 [facility] HospitalKzxwjrdGFOOSLIAGZ8970-98-00 10:52:00 Test Item Value Reference Range Interpretation Comments MCH (test code = MCH) 27.3 pg 27.0-31.0 [facility] HospitalYpozmpkPKTHSZPFJN4694-89-12 10:52:00 Test Item Value Reference Range Interpretation Comments MCV (test code = MCV) 83.7 80.0-94.0 [facility] HospitalKkrnwgeCNCIXILKQD0347-19-81 10:52:00 Test Item Value Reference Range Interpretation Comments RBC (test code = RBC) 3.80 4.70-6.10 [facility] HospitalEijhpctEHIBUVUMED9755-10-10 10:52:00 Test Item Value Reference Range Interpretation Comments Hct (test code = Hct) 31.8 42.0-54.0 [facility] HospitalYhqyzszYZBTWSBGHD2205-94-07 10:52:00 Test Item Value Reference Range Interpretation Comments Hgb (test code = Hgb) 10.4 14.0-18.0 [facility]bie[facility]oJIITRLAOGC9512-00-71 10:52:00 Test Item Value Reference Range Interpretation Comments RDW (test code = RDW) 17.7 11.5-14.5 [facility]VviqihlTHRASEDTTU7863-47-37 10:52:00 Test Item Value Reference Range Interpretation Comments MCHC (test code = MCHC) 32.6 32.0-36.0 [facility] HospitalTzvkrbzEBRHBCCBAH3427-87-33 10:52:00 Test Item Value Reference Range Interpretation Comments MPV (test code = MPV) 8.7 7.4-10.4 [facility] HospitalNjwotuhPPMQUHDFHZ9692-75-04 10:52:00 Test Item Value Reference Range Interpretation Comments Platelet (test code = Platelet) 167 133-450 [facility] [id number] 07:38:00 Test Item Value Reference Range Interpretation Comments Troponin-I (test code no gt See_Comment [Auto mated message] The = Troponin-I) system which g enerated this result transmit jw reference range : <=0.40. The reference r bret was not used to interpr et this result as mateo l/abnormal. [facility] [id number] 07:38:00 Test Item Value Reference Range Interpretation Comments Calcium Lvl (test code = Calcium Lvl) 7.2 8.5-10.5 [facility]2018-10-24 07:38:00 Test Item Value Reference Range Interpretation Comments AGAP (test code = AGAP) 13.6 10.0-20.0 [facility] [id number] 07:38:00 Test Item Value Reference Range Interpretation Comments Sodium Lvl (test code = Sodium Lvl) 137 135-145 [facility] [id number] 07:38:00 Test Item Value Reference Range Interpretation Comments Creatinine Lvl (test code = Creatinine 0.81 0.50-1.40 Lvl) [facility]2018-10-24 07:38:00 Test Item Value Reference Range Interpretation Comments Potassium Lvl (test code = Potassium 3.6 3.5-5.1 Lvl) [facility] [id number] 07:38:00 Test Item Value Reference Range Interpretation Comments CO2 (test code = CO2) 19 24-32 [facility] [id number] 07:38:00 Test Item Value Reference Range Interpretation Comments Chloride Lvl (test code = Chloride Lvl) 108 95-109 [facility]2018-10-24 07:38:00 Test Item Value Reference Range Interpretation Comments eGFR (test code = eGFR) 91 [facility]2018-10-24 07:38:00 Test Item Value Reference Range Interpretation Comments BUN (test code = BUN) 17 7-22 [facility] [id number] 07:38:00 Test Item Value Reference Range Interpretation Comments Glucose Lvl (test code = Glucose Lvl) 82 70-99 [facility] [id number] 07:38:00 Test Item Value Reference Range Interpretation Comments Troponin-I (test code no gt See_Comment [Auto mated message] The = Troponin-I) system which g enerated this result transmit jw reference range : <=0.40. The reference r bret was not used to interpr et this result as mateo l/abnormal. [facility] [id number] 07:38:00 Test Item Value Reference Range Interpretation Comments Calcium Lvl (test code = Calcium Lvl) 7.2 8.5-10.5 [facility] [id number] 07:38:00 Test Item Value Reference Range Interpretation Comments AGAP (test code = AGAP) 13.6 10.0-20.0 [facility] [id number] 07:38:00 Test Item Value Reference Range Interpretation Comments Sodium Lvl (test code = Sodium Lvl) 137 135-145 [facility] [id number] 07:38:00 Test Item Value Reference Range Interpretation Comments Creatinine Lvl (test code = Creatinine 0.81 0.50-1.40 Lvl) [facility] [id number] 07:38:00 Test Item Value Reference Range Interpretation Comments Potassium Lvl (test code = Potassium 3.6 3.5-5.1 Lvl) [facility] [id number] 07:38:00 Test Item Value Reference Range Interpretation Comments CO2 (test code = CO2) [facility] [id number] 07:38:00 Test Item Value Reference Range Interpretation Comments Chloride Lvl (test code = Chloride Lvl) 108 95-109 [facility]2018-10-24 07:38:00 Test Item Value Reference Range Interpretation Comments eGFR (test code = eGFR) 91 [facility]2018-10-24 07:38:00 Test Item Value Reference Range Interpretation Comments BUN (test code = BUN) 17 7-22 [facility]2018-10-24 07:38:00 Test Item Value Reference Range Interpretation Comments Glucose Lvl (test code = Glucose Lvl) 82 70-99 [facility] [id number] 07:38:00 Test Item Value Reference Range Interpretation Comments Troponin-I (test code no gt See_Comment [Auto mated message] The = Troponin-I) system which g enerated this result transmit jw reference range : <=0.40. The reference r bret was not used to interpr et this result as mateo l/abnormal. [facility]2018-10-24 07:38:00 Test Item Value Reference Range Interpretation Comments Calcium Lvl (test code = Calcium Lvl) 7.2 8.5-10.5 [facility]2018-10-24 07:38:00 Test Item Value Reference Range Interpretation Comments AGAP (test code = AGAP) 13.6 10.0-20.0 [facility]2018-10-24 07:38:00 Test Item Value Reference Range Interpretation Comments Sodium Lvl (test code = Sodium Lvl) 137 135-145 [facility]2018-10-24 07:38:00 Test Item Value Reference Range Interpretation Comments Creatinine Lvl (test code = Creatinine 0.81 0.50-1.40 Lvl) [facility]2018-10-24 07:38:00 Test Item Value Reference Range Interpretation Comments Potassium Lvl (test code = Potassium 3.6 3.5-5.1 Lvl) [facility]2018-10-24 07:38:00 Test Item Value Reference Range Interpretation Comments CO2 (test code = CO2) 19 24-32 [facility]2018-10-24 07:38:00 Test Item Value Reference Range Interpretation Comments Chloride Lvl (test code = Chloride Lvl) 108 95-109 [facility]2018-10-24 07:38:00 Test Item Value Reference Range Interpretation Comments eGFR (test code = eGFR) 91 [facility]2018-10-24 07:38:00 Test Item Value Reference Range Interpretation Comments BUN (test code = BUN) 17 7-22 [facility]2018-10-24 07:38:00 Test Item Value Reference Range Interpretation Comments Glucose Lvl (test code = Glucose Lvl) 82 70-99 [facility] [id number] 07:38:00 Test Item Value Reference Range Interpretation Comments Troponin-I (test code no gt See_Comment [Auto mated message] The = Troponin-I) system which g enerated this result transmit jw reference range : <=0.40. The reference r bret was not used to interpr et this result as mateo l/abnormal. [facility] [id number] 07:38:00 Test Item Value Reference Range Interpretation Comments Calcium Lvl (test code = Calcium Lvl) 7.2 8.5-10.5 [facility]2018-10-24 07:38:00 Test Item Value Reference Range Interpretation Comments AGAP (test code = AGAP) 13.6 10.0-20.0 [facility] [id number] 07:38:00 Test Item Value Reference Range Interpretation Comments Sodium Lvl (test code = Sodium Lvl) 137 135-145 [facility] [id number] 07:38:00 Test Item Value Reference Range Interpretation Comments Creatinine Lvl (test code = Creatinine 0.81 0.50-1.40 Lvl) [facility]2018-10-24 07:38:00 Test Item Value Reference Range Interpretation Comments Potassium Lvl (test code = Potassium 3.6 3.5-5.1 Lvl) [facility] [id number] 07:38:00 Test Item Value Reference Range Interpretation Comments CO2 (test code = CO2) 19 24-32 [facility] [id number] 07:38:00 Test Item Value Reference Range Interpretation Comments Chloride Lvl (test code = Chloride Lvl) 108 95-109 [facility]2018-10-24 07:38:00 Test Item Value Reference Range Interpretation Comments eGFR (test code = eGFR) 91 [facility] [id number] 07:38:00 Test Item Value Reference Range Interpretation Comments BUN (test code = BUN) 09-26 [facility]2018-10-24 07:38:00 Test Item Value Reference Range Interpretation Comments Glucose Lvl (test code = Glucose Lvl) 82 70-99 [facility] [id number] 07:38:00 Test Item Value Reference Range Interpretation Comments Troponin-I (test code no gt See_Comment [Auto mated message] The = Troponin-I) system which g enerated this result transmit jw reference range : <=0.40. The reference r bret was not used to interpr et this result as mateo l/abnormal. [facility]2018-10-24 07:38:00 Test Item Value Reference Range Interpretation Comments Calcium Lvl (test code = Calcium Lvl) 7.2 8.5-10.5 [facility]2018-10-24 07:38:00 Test Item Value Reference Range Interpretation Comments AGAP (test code = AGAP) 13.6 10.0-20.0 [facility]2018-10-24 07:38:00 Test Item Value Reference Range Interpretation Comments Sodium Lvl (test code = Sodium Lvl) 137 135-145 [facility]2018-10-24 07:38:00 Test Item Value Reference Range Interpretation Comments Creatinine Lvl (test code = Creatinine 0.81 0.50-1.40 Lvl) [facility]2018-10-24 07:38:00 Test Item Value Reference Range Interpretation Comments Potassium Lvl (test code = Potassium 3.6 3.5-5.1 Lvl) [facility]2018-10-24 07:38:00 Test Item Value Reference Range Interpretation Comments CO2 (test code = CO2) 19 24-32 [facility]2018-10-24 07:38:00 Test Item Value Reference Range Interpretation Comments Chloride Lvl (test code = Chloride Lvl) 108 95-109 [facility]2018-10-24 07:38:00 Test Item Value Reference Range Interpretation Comments eGFR (test code = eGFR) 91 [facility]2018-10-24 07:38:00 Test Item Value Reference Range Interpretation Comments BUN (test code = BUN) 17 09-26 [facility] [id number] 07:38:00 Test Item Value Reference Range Interpretation Comments Glucose Lvl (test code = Glucose Lvl) 82 70-99 [facility] [id number] 07:38:00 Test Item Value Reference Range Interpretation Comments Troponin-I (test code no gt See_Comment [Auto mated message] The = Troponin-I) system which g enerated this result transmit jw reference range : <=0.40. The reference r bret was not used to interpr et this result as mateo l/abnormal. [facility] [id number] 07:38:00 Test Item Value Reference Range Interpretation Comments Calcium Lvl (test code = Calcium Lvl) 7.2 8.5-10.5 [facility]2018-10-24 07:38:00 Test Item Value Reference Range Interpretation Comments AGAP (test code = AGAP) 13.6 10.0-20.0 [facility]2018-10-24 07:38:00 Test Item Value Reference Range Interpretation Comments Sodium Lvl (test code = Sodium Lvl) 137 135-145 [facility] [id number] 07:38:00 Test Item Value Reference Range Interpretation Comments Creatinine Lvl (test code = Creatinine 0.81 0.50-1.40 Lvl) [facility]2018-10-24 07:38:00 Test Item Value Reference Range Interpretation Comments Potassium Lvl (test code = Potassium 3.6 3.5-5.1 Lvl) [facility]2018-10-24 07:38:00 Test Item Value Reference Range Interpretation Comments CO2 (test code = CO2) - [facility] [id number] 07:38:00 Test Item Value Reference Range Interpretation Comments Chloride Lvl (test code = Chloride Lvl) 108 95-109 [facility]2018-10-24 07:38:00 Test Item Value Reference Range Interpretation Comments eGFR (test code = eGFR) 91 [facility]2018-10-24 07:38:00 Test Item Value Reference Range Interpretation Comments BUN (test code = BUN) 17 09-26 [facility] [id number] 07:38:00 Test Item Value Reference Range Interpretation Comments Glucose Lvl (test code = Glucose Lvl) 82 70-99 [facility] [id number] 07:38:00 Test Item Value Reference Range Interpretation Comments Troponin-I (test code no gt See_Comment [Auto mated message] The = Troponin-I) system which g enerated this result transmit jw reference range : <=0.40. The reference r bret was not used to interpr et this result as mateo l/abnormal. [facility] [id number] 07:38:00 Test Item Value Reference Range Interpretation Comments Calcium Lvl (test code = Calcium Lvl) 7.2 8.5-10.5 [facility] [id number] 07:38:00 Test Item Value Reference Range Interpretation Comments AGAP (test code = AGAP) 13.6 10.0-20.0 [facility] [id number] 07:38:00 Test Item Value Reference Range Interpretation Comments Sodium Lvl (test code = Sodium Lvl) 137 135-145 [facility] [id number] 07:38:00 Test Item Value Reference Range Interpretation Comments Creatinine Lvl (test code = Creatinine 0.81 0.50-1.40 Lvl) [facility] [id number] 07:38:00 Test Item Value Reference Range Interpretation Comments Potassium Lvl (test code = Potassium 3.6 3.5-5.1 Lvl) [facility] [id number] 07:38:00 Test Item Value Reference Range Interpretation Comments CO2 (test code = CO2) 19 24-32 [facility] [id number] 07:38:00 Test Item Value Reference Range Interpretation Comments Chloride Lvl (test code = Chloride Lvl) 108 95-109 [facility] [id number] 07:38:00 Test Item Value Reference Range Interpretation Comments eGFR (test code = eGFR) 91 [facility]2018-10-24 07:38:00 Test Item Value Reference Range Interpretation Comments BUN (test code = BUN) 17 7-22 [facility] [id number] 07:38:00 Test Item Value Reference Range Interpretation Comments Glucose Lvl (test code = Glucose Lvl) 82 70-99 [facility] [id number] 07:38:00 Test Item Value Reference Range Interpretation Comments Troponin-I (test code no gt See_Comment [Auto mated message] The = Troponin-I) system which g enerated this result transmit jw reference range : <=0.40. The reference r bret was not used to interpr et this result as mateo l/abnormal. [facility]2018-10-24 07:38:00 Test Item Value Reference Range Interpretation Comments Calcium Lvl (test code = Calcium Lvl) 7.2 8.5-10.5 [facility]2018-10-24 07:38:00 Test Item Value Reference Range Interpretation Comments AGAP (test code = AGAP) 13.6 10.0-20.0 [facility]2018-10-24 07:38:00 Test Item Value Reference Range Interpretation Comments Sodium Lvl (test code = Sodium Lvl) 137 135-145 [facility]2018-10-24 07:38:00 Test Item Value Reference Range Interpretation Comments Creatinine Lvl (test code = Creatinine 0.81 0.50-1.40 Lvl) [facility]2018-10-24 07:38:00 Test Item Value Reference Range Interpretation Comments Potassium Lvl (test code = Potassium 3.6 3.5-5.1 Lvl) [facility]2018-10-24 07:38:00 Test Item Value Reference Range Interpretation Comments CO2 (test code = CO2) 19 24-32 [facility]2018-10-24 07:38:00 Test Item Value Reference Range Interpretation Comments Chloride Lvl (test code = Chloride Lvl) 108 95-109 [facility]2018-10-24 07:38:00 Test Item Value Reference Range Interpretation Comments eGFR (test code = eGFR) 91 [facility]2018-10-24 07:38:00 Test Item Value Reference Range Interpretation Comments BUN (test code = BUN) 17 7-22 [facility]2018-10-24 07:38:00 Test Item Value Reference Range Interpretation Comments Glucose Lvl (test code = Glucose Lvl) 82 70-99 [facility]2018-10-24 02:35:00 Test Item Value Reference Range Interpretation Comments Lactic Acid Lvl (test code = Lactic 1.5 0.5-2.2 Acid Lvl) [facility]2018-10-24 02:35:00 Test Item Value Reference Range Interpretation Comments Lactic Acid Lvl (test code = Lactic 1.5 0.5-2.2 Acid Lvl) [facility]2018-10-24 02:35:00 Test Item Value Reference Range Interpretation Comments Lactic Acid Lvl (test code = Lactic 1.5 0.5-2.2 Acid Lvl) [place] [address]-10-24 02:35:00 Test Item Value Reference Range Interpretation Comments Lactic Acid Lvl (test code = Lactic 1.5 0.5-2.2 Acid Lvl) [place] [address]-10-24 02:35:00 Test Item Value Reference Range Interpretation Comments Lactic Acid Lvl (test code = Lactic 1.5 0.5-2.2 Acid Lvl) [place] [address]-10-24 02:35:00 Test Item Value Reference Range Interpretation Comments Lactic Acid Lvl (test code = Lactic 1.5 0.5-2.2 Acid Lvl) [place] [id number] 02:35:00 Test Item Value Reference Range Interpretation Comments Lactic Acid Lvl (test code = Lactic 1.5 0.5-2.2 Acid Lvl) [place] [address]-10-24 02:35:00 Test Item Value Reference Range Interpretation Comments Lactic Acid Lvl (test code = Lactic 1.5 0.5-2.2 Acid Lvl) [facility]2018-10-24 00:27:00 Test Item Value Reference Range Interpretation Comments Lactic Acid Lvl (test code = Lactic 1.3 0.5-2.2 Acid Lvl) [place] [id number] 00:27:00 Test Item Value Reference Range Interpretation Comments Trig (test code = Trig) 89 [id number] 00:27:00 Test Item Value Reference Range Interpretation Comments Chol (test code = Chol) 150 [facility] [id number] 00:27:00 Test Item Value Reference Range Interpretation Comments HDL (test code = HDL) 33 [facility] [id number] 00:27:00 Test Item Value Reference Range Interpretation Comments CHD Risk (test code = CHD Risk) 4.55 1 4.00-7.30 [facility] [id number] 00:27:00 Test Item Value Reference Range Interpretation Comments LDL (Calculated) (test code = LDL 99 (Calculated)) [facility] GrgeattEQSXJH9851-10-39 00:27:00 Test Item Value Reference Range Interpretation Comments VLDL (test code = VLDL) 18 1 [facility]SPE[facility] [id number] 00:27:00 Test Item Value Reference Range Interpretation Comments Hgb A1C (test code = Hgb A1C) 6.0 [facility] [id number] 00:27:00 Test Item Value Reference Range Interpretation Comments UA Blood (test code = Negative (12/28/17 7:27 UA Blood) PM) [facility] [id number] 00:27:00 Test Item Value Reference Range Interpretation Comments UA Spec Grav (test *NA*(12/28/17 7:27 PM) code = UA Spec Grav) [facility] [id number] 00:27:00 Test Item Value Reference Range Interpretation Comments UA Turbidity (test code = Clear (12/28/17 7:27 UA Turbidity) PM) [facility] [id number] 00:27:00 Test Item Value Reference Range Interpretation Comments UA Glucose (test code Negative (12/28/17 7:27 = UA Glucose) PM) [facility] [id number] 00:27:00 Test Item Value Reference Range Interpretation Comments UA Protein (test code Negative (12/28/17 7:27 = UA Protein) PM) [facility] [id number] 00:27:00 Test Item Value Reference Range Interpretation Comments UA Bili (test code = Negative *NA*(12/28/17 UA Bili) 7:27 PM) [facility] [id number] 00:27:00 Test Item Value Reference Range Interpretation Comments UA Ketones (test code Negative *NA*(12/28/17 = UA Ketones) 7:27 PM) [facility] [id number] 00:27:00 Test Item Value Reference Range Interpretation Comments UA Leuk Est (test Negative (12/28/17 7:27 code = UA Leuk Est) PM) [facility] [id number] 00:27:00 Test Item Value Reference Range Interpretation Comments UA Nitrite (test code Negative (12/28/17 7:27 = UA Nitrite) PM) [facility] [id number] 00:27:00 Test Item Value Reference Range Interpretation Comments UA Urobilinogen (test code = UA 0.2 0.1-1.0 Urobilinogen) [facility] [id number] 00:27:00 Test Item Value Reference Range Interpretation Comments UA pH (test code = UA pH) 7.0 1 5.0-8.0 [facility] [id number] 00:27:00 Test Item Value Reference Range Interpretation Comments UA Color (test code = Yellow *NA*(12/28/17 UA Color) 7:27 PM) [facility] [id number] 00:27:00 Test Item Value Reference Range Interpretation Comments UA Bacteria (test code = None Seen (12/28/17 UA Bacteria) 7:27 PM) [facility] [id number] 00:27:00 Test Item Value Reference Range Interpretation Comments UA WBC (test code = UA None Seen (12/28/17 WBC) 7:27 PM) [facility] [id number] 00:27:00 Test Item Value Reference Range Interpretation Comments UA Sq Epi (test code = UA Sq Epi) Rare /LPF [facility] [id number] 00:27:00 Test Item Value Reference Range Interpretation Comments Micro? (test code = Performed (12/28/17 7:27 Micro?) PM) [facility] [id number] 00:27:00 Test Item Value Reference Range Interpretation Comments UA RBC (test None Seen See_Comment [Automated [place]] code = UA RBC) (12/28/17 7:27 The system which PM) generated this result transmitted ref erence range: <=2. The reference range was not used to int erpret this result as normal/abnormal . [facility]annCHE[facility] [id number] 00:27:00 Test Item Value Reference Range Interpretation Comments Lactic Acid Lvl (test code = Lactic 1.3 0.5-2.2 Acid Lvl) [facility] [id number] 00:27:00 Test Item Value Reference Range Interpretation Comments Trig (test code = Trig) 89 [facility] [id number] 00:27:00 Test Item Value Reference Range Interpretation Comments Chol (test code = Chol) 150 [facility] CentralMobhpdqDGLERD5024-23-41 00:27:00 Test Item Value Reference Range Interpretation Comments HDL (test code = HDL) 33 [facility] [id number] 00:27:00 Test Item Value Reference Range Interpretation Comments CHD Risk (test code = CHD Risk) 4.55 1 4.00-7.30 [facility] EgncbqpXWPOXA7160-93-13 00:27:00 Test Item Value Reference Range Interpretation Comments LDL (Calculated) (test code = LDL 99 (Calculated)) [facility] CentralMydkvhdCZIQZE6518-27-39 00:27:00 Test Item Value Reference Range Interpretation Comments VLDL (test code = VLDL) 18 [facility] [id number] 00:27:00 Test Item Value Reference Range Interpretation Comments Hgb A1C (test code = Hgb A1C) 6.0 [facility] AND [id number] 00:27:00 Test Item Value Reference Range Interpretation Comments UA Blood (test code = Negative (12/28/17 7:27 UA Blood) PM) [facility] AND [id number] 00:27:00 Test Item Value Reference Range Interpretation Comments UA Spec Grav (test *NA*(12/28/17 7:27 PM) code = UA Spec Grav) [facility] AND [id number] 00:27:00 Test Item Value Reference Range Interpretation Comments UA Turbidity (test code = Clear (12/28/17 7:27 UA Turbidity) PM) [facility] AND [id number] 00:27:00 Test Item Value Reference Range Interpretation Comments UA Glucose (test code Negative (12/28/17 7:27 = UA Glucose) PM) [facility] [id number] 00:27:00 Test Item Value Reference Range Interpretation Comments UA Protein (test code Negative (12/28/17 7:27 = UA Protein) PM) [facility] [id number] 00:27:00 Test Item Value Reference Range Interpretation Comments UA Bili (test code = Negative *NA*(12/28/17 UA Bili) 7:27 PM) [facility] [id number] 00:27:00 Test Item Value Reference Range Interpretation Comments UA Ketones (test code Negative *NA*(12/28/17 = UA Ketones) 7:27 PM) [facility] [id number] 00:27:00 Test Item Value Reference Range Interpretation Comments UA Leuk Est (test Negative (12/28/17 7:27 code = UA Leuk Est) PM) [facility] [id number] 00:27:00 Test Item Value Reference Range Interpretation Comments UA Nitrite (test code Negative (12/28/17 7:27 = UA Nitrite) PM) [facility] [id number] 00:27:00 Test Item Value Reference Range Interpretation Comments UA Urobilinogen (test code = UA 0.2 0.1-1.0 Urobilinogen) [facility] [id number] 00:27:00 Test Item Value Reference Range Interpretation Comments UA pH (test code = UA pH) 7.0 1 5.0-8.0 [facility] [id number] 00:27:00 Test Item Value Reference Range Interpretation Comments UA Color (test code = Yellow *NA*(12/28/17 UA Color) 7:27 PM) [facility] [id number] 00:27:00 Test Item Value Reference Range Interpretation Comments UA Bacteria (test code = None Seen (12/28/17 UA Bacteria) 7:27 PM) [facility] [id number] 00:27:00 Test Item Value Reference Range Interpretation Comments UA WBC (test code = UA None Seen (12/28/17 WBC) 7:27 PM) [facility] [id number] 00:27:00 Test Item Value Reference Range Interpretation Comments UA Sq Epi (test code = UA Sq Epi) Rare /LPF [facility] [id number] 00:27:00 Test Item Value Reference Range Interpretation Comments Micro? (test code = Performed (12/28/17 7:27 Micro?) PM) [facility] [id number] 00:27:00 Test Item Value Reference Range Interpretation Comments UA RBC (test None Seen See_Comment [Automated [place]] code = UA RBC) (12/28/17 7:27 The system which PM) generated this result transmitted ref erence range: <=2. The reference range was not used to int erpret this result as normal/abnormal . [facility]CHE[facility] [id number] 00:27:00 Test Item Value Reference Range Interpretation Comments Lactic Acid Lvl (test code = Lactic 1.3 0.5-2.2 Acid Lvl) [facility] [id number] 00:27:00 Test Item Value Reference Range Interpretation Comments Trig (test code = Trig) 89 [facility] [id number] 00:27:00 Test Item Value Reference Range Interpretation Comments Chol (test code = Chol) 150 [facility] [id number] 00:27:00 Test Item Value Reference Range Interpretation Comments HDL (test code = HDL) 33 [facility] AntonioAehzbegAHQBJU0324-56-05 00:27:00 Test Item Value Reference Range Interpretation Comments CHD Risk (test code = CHD Risk) 4.55 1 4.00-7.30 [facility] AntonioUdkfxjuJYTNYQ1957-90-75 00:27:00 Test Item Value Reference Range Interpretation Comments LDL (Calculated) (test code = LDL 99 (Calculated)) [facility] AntonioWquneyuNRJYYR3645-15-56 00:27:00 Test Item Value Reference Range Interpretation Comments VLDL (test code = VLDL) 18 [facility] [id number] 00:27:00 Test Item Value Reference Range Interpretation Comments Hgb A1C (test code = Hgb A1C) 6.0 [facility] [id number] 00:27:00 Test Item Value Reference Range Interpretation Comments UA Blood (test code = Negative (12/28/17 7:27 UA Blood) PM) [facility] [id number] 00:27:00 Test Item Value Reference Range Interpretation Comments UA Spec Grav (test *NA*(12/28/17 7:27 PM) code = UA Spec Grav) [facility] [id number] 00:27:00 Test Item Value Reference Range Interpretation Comments UA Turbidity (test code = Clear (12/28/17 7:27 UA Turbidity) PM) [facility] [id number] 00:27:00 Test Item Value Reference Range Interpretation Comments UA Glucose (test code Negative (12/28/17 7:27 = UA Glucose) PM) [facility] [id number] 00:27:00 Test Item Value Reference Range Interpretation Comments UA Protein (test code Negative (12/28/17 7:27 = UA Protein) PM) [facility] [id number] 00:27:00 Test Item Value Reference Range Interpretation Comments UA Bili (test code = Negative *NA*(12/28/17 UA Bili) 7:27 PM) [facility] [id number] 00:27:00 Test Item Value Reference Range Interpretation Comments UA Ketones (test code Negative *NA*(12/28/17 = UA Ketones) 7:27 PM) [facility] [id number] 00:27:00 Test Item Value Reference Range Interpretation Comments UA Leuk Est (test Negative (12/28/17 7:27 code = UA Leuk Est) PM) [facility] [id number] 00:27:00 Test Item Value Reference Range Interpretation Comments UA Nitrite (test code Negative (12/28/17 7:27 = UA Nitrite) PM) [facility] [id number] 00:27:00 Test Item Value Reference Range Interpretation Comments UA Urobilinogen (test code = UA 0.2 0.1-1.0 Urobilinogen) [facility] [id number] 00:27:00 Test Item Value Reference Range Interpretation Comments UA pH (test code = UA pH) 7.0 1 5.0-8.0 [facility] [id number] 00:27:00 Test Item Value Reference Range Interpretation Comments UA Color (test code = Yellow *NA*(12/28/17 UA Color) 7:27 PM) [facility] [id number] 00:27:00 Test Item Value Reference Range Interpretation Comments UA Bacteria (test code = None Seen (12/28/17 UA Bacteria) 7:27 PM) [facility] [id number] 00:27:00 Test Item Value Reference Range Interpretation Comments UA WBC (test code = UA None Seen (12/28/17 WBC) 7:27 PM) [facility] [id number] 00:27:00 Test Item Value Reference Range Interpretation Comments UA Sq Epi (test code = UA Sq Epi) Rare /LPF [facility] [id number] 00:27:00 Test Item Value Reference Range Interpretation Comments Micro? (test code = Performed (12/28/17 7:27 Micro?) PM) [facility] [id number] 00:27:00 Test Item Value Reference Range Interpretation Comments UA RBC (test None Seen See_Comment [Automated [place]] code = UA RBC) (12/28/17 7:27 The system which PM) generated this result transmitted ref erence range: <=2. The reference range was not used to int erpret this result as normal/abnormal . [facility] [id number] 00:27:00 Test Item Value Reference Range Interpretation Comments Lactic Acid Lvl (test code = Lactic 1.3 0.5-2.2 Acid Lvl) [facility] TywxyqnNKLURM5725-18-58 00:27:00 Test Item Value Reference Range Interpretation Comments Trig (test code = Trig) 89 [facility] [id number] 00:27:00 Test Item Value Reference Range Interpretation Comments Chol (test code = Chol) 150 [facility] [id number] 00:27:00 Test Item Value Reference Range Interpretation Comments HDL (test code = HDL) 33 [facility] [id number] 00:27:00 Test Item Value Reference Range Interpretation Comments CHD Risk (test code = CHD Risk) 4.55 1 4.00-7.30 [facility] EqprinqEYVZQH9620-60-16 00:27:00 Test Item Value Reference Range Interpretation Comments LDL (Calculated) (test code = LDL 99 (Calculated)) [facility] QfqzpazZIVEBV7419-91-14 00:27:00 Test Item Value Reference Range Interpretation Comments VLDL (test code = VLDL) 18 1 [facility]SPE[facility] [id number] 00:27:00 Test Item Value Reference Range Interpretation Comments Hgb A1C (test code = Hgb A1C) 6.0 [facility] [id number] 00:27:00 Test Item Value Reference Range Interpretation Comments UA Blood (test code = Negative (12/28/17 7:27 UA Blood) PM) [facility] [id number] 00:27:00 Test Item Value Reference Range Interpretation Comments UA Spec Grav (test *NA*(12/28/17 7:27 PM) code = UA Spec Grav) [facility] [id number] 00:27:00 Test Item Value Reference Range Interpretation Comments UA Turbidity (test code = Clear (12/28/17 7:27 UA Turbidity) PM) [facility] [id number] 00:27:00 Test Item Value Reference Range Interpretation Comments UA Glucose (test code Negative (12/28/17 7:27 = UA Glucose) PM) [facility] [id number] 00:27:00 Test Item Value Reference Range Interpretation Comments UA Protein (test code Negative (12/28/17 7:27 = UA Protein) PM) [facility] [id number] 00:27:00 Test Item Value Reference Range Interpretation Comments UA Bili (test code = Negative *NA*(12/28/17 UA Bili) 7:27 PM) [facility] [id number] 00:27:00 Test Item Value Reference Range Interpretation Comments UA Ketones (test code Negative *NA*(12/28/17 = UA Ketones) 7:27 PM) [facility] [id number] 00:27:00 Test Item Value Reference Range Interpretation Comments UA Leuk Est (test Negative (12/28/17 7:27 code = UA Leuk Est) PM) [facility] [id number] 00:27:00 Test Item Value Reference Range Interpretation Comments UA Nitrite (test code Negative (12/28/17 7:27 = UA Nitrite) PM) [facility] [id number] 00:27:00 Test Item Value Reference Range Interpretation Comments UA Urobilinogen (test code = UA 0.2 0.1-1.0 Urobilinogen) [facility] [id number] 00:27:00 Test Item Value Reference Range Interpretation Comments UA pH (test code = UA pH) 7.0 1 5.0-8.0 [facility] [id number] 00:27:00 Test Item Value Reference Range Interpretation Comments UA Color (test code = Yellow *NA*(12/28/17 UA Color) 7:27 PM) [facility] [id number] 00:27:00 Test Item Value Reference Range Interpretation Comments UA Bacteria (test code = None Seen (12/28/17 UA Bacteria) 7:27 PM) [facility] [id number] 00:27:00 Test Item Value Reference Range Interpretation Comments UA WBC (test code = UA None Seen (12/28/17 WBC) 7:27 PM) [facility] [id number] 00:27:00 Test Item Value Reference Range Interpretation Comments UA Sq Epi (test code = UA Sq Epi) Rare /LPF [facility] [id number] 00:27:00 Test Item Value Reference Range Interpretation Comments Micro? (test code = Performed (12/28/17 7:27 Micro?) PM) [facility] [id number] 00:27:00 Test Item Value Reference Range Interpretation Comments UA RBC (test None Seen See_Comment [Automated [place]] code = UA RBC) (12/28/17 7:27 The system which PM) generated this result transmitted ref erence range: <=2. The reference range was not used to int erpret this result as normal/abnormal . [facility]CHE[facility] [id number] 00:27:00 Test Item Value Reference Range Interpretation Comments Lactic Acid Lvl (test code = Lactic 1.3 0.5-2.2 Acid Lvl) [facility] [id number] 00:27:00 Test Item Value Reference Range Interpretation Comments Trig (test code = Trig) 89 [facility] [id number] 00:27:00 Test Item Value Reference Range Interpretation Comments Chol (test code = Chol) 150 [facility] UgovvnoNDGCWI1555-56-13 00:27:00 Test Item Value Reference Range Interpretation Comments HDL (test code = HDL) 33 [facility] [id number] 00:27:00 Test Item Value Reference Range Interpretation Comments CHD Risk (test code = CHD Risk) 4.55 1 4.00-7.30 [facility] JiameghHCDKBL3557-33-67 00:27:00 Test Item Value Reference Range Interpretation Comments LDL (Calculated) (test code = LDL 99 (Calculated)) [facility] IwdupcrWYGRQF7360-22-25 00:27:00 Test Item Value Reference Range Interpretation Comments VLDL (test code = VLDL) 18 1 [facility] [id number] 00:27:00 Test Item Value Reference Range Interpretation Comments Hgb A1C (test code = Hgb A1C) 6.0 [facility] [id number] 00:27:00 Test Item Value Reference Range Interpretation Comments UA Blood (test code = Negative (12/28/17 7:27 UA Blood) PM) [facility] [id number] 00:27:00 Test Item Value Reference Range Interpretation Comments UA Spec Grav (test *NA*(12/28/17 7:27 PM) code = UA Spec Grav) [facility] [id number] 00:27:00 Test Item Value Reference Range Interpretation Comments UA Turbidity (test code = Clear (12/28/17 7:27 UA Turbidity) PM) [facility] [id number] 00:27:00 Test Item Value Reference Range Interpretation Comments UA Glucose (test code Negative (12/28/17 7:27 = UA Glucose) PM) [facility] [id number] 00:27:00 Test Item Value Reference Range Interpretation Comments UA Protein (test code Negative (12/28/17 7:27 = UA Protein) PM) [facility] [id number] 00:27:00 Test Item Value Reference Range Interpretation Comments UA Bili (test code = Negative *NA*(12/28/17 UA Bili) 7:27 PM) [facility] [id number] 00:27:00 Test Item Value Reference Range Interpretation Comments UA Ketones (test code Negative *NA*(12/28/17 = UA Ketones) 7:27 PM) [facility] [id number] 00:27:00 Test Item Value Reference Range Interpretation Comments UA Leuk Est (test Negative (12/28/17 7:27 code = UA Leuk Est) PM) [facility] [id number] 00:27:00 Test Item Value Reference Range Interpretation Comments UA Nitrite (test code Negative (12/28/17 7:27 = UA Nitrite) PM) [facility] [id number] 00:27:00 Test Item Value Reference Range Interpretation Comments UA Urobilinogen (test code = UA 0.2 0.1-1.0 Urobilinogen) [facility] [id number] 00:27:00 Test Item Value Reference Range Interpretation Comments UA pH (test code = UA pH) 7.0 1 5.0-8.0 [facility] [id number] 00:27:00 Test Item Value Reference Range Interpretation Comments UA Color (test code = Yellow *NA*(12/28/17 UA Color) 7:27 PM) [facility] [id number] 00:27:00 Test Item Value Reference Range Interpretation Comments UA Bacteria (test code = None Seen (12/28/17 UA Bacteria) 7:27 PM) [facility] [id number] 00:27:00 Test Item Value Reference Range Interpretation Comments UA WBC (test code = UA None Seen (12/28/17 WBC) 7:27 PM) [facility] [id number] 00:27:00 Test Item Value Reference Range Interpretation Comments UA Sq Epi (test code = UA Sq Epi) Rare /LPF [facility] [id number] 00:27:00 Test Item Value Reference Range Interpretation Comments Micro? (test code = Performed (12/28/17 7:27 Micro?) PM) [facility] [id number] 00:27:00 Test Item Value Reference Range Interpretation Comments UA RBC (test None Seen See_Comment [Automated [place]] code = UA RBC) (12/28/17 7:27 The system which PM) generated this result transmitted ref erence range: <=2. The reference range was not used to int erpret this result as normal/abnormal . [facility] [id number] 00:27:00 Test Item Value Reference Range Interpretation Comments Lactic Acid Lvl (test code = Lactic 1.3 0.5-2.2 Acid Lvl) [facility] [id number] 00:27:00 Test Item Value Reference Range Interpretation Comments Trig (test code = Trig) 89 [facility] RbgtofbVSXWHZ1386-61-47 00:27:00 Test Item Value Reference Range Interpretation Comments Chol (test code = Chol) 150 [facility] [id number] 00:27:00 Test Item Value Reference Range Interpretation Comments HDL (test code = HDL) 33 [facility] [id number] 00:27:00 Test Item Value Reference Range Interpretation Comments CHD Risk (test code = CHD Risk) 4.55 1 4.00-7.30 [facility] [id number] 00:27:00 Test Item Value Reference Range Interpretation Comments LDL (Calculated) (test code = LDL 99 (Calculated)) [facility] AsoxtogKKZCGC4688-81-11 00:27:00 Test Item Value Reference Range Interpretation Comments VLDL (test code = VLDL) 18 1 [facility] [id number] 00:27:00 Test Item Value Reference Range Interpretation Comments Hgb A1C (test code = Hgb A1C) 6.0 [facility] [id number] 00:27:00 Test Item Value Reference Range Interpretation Comments UA Blood (test code = Negative (12/28/17 7:27 UA Blood) PM) [facility] [id number] 00:27:00 Test Item Value Reference Range Interpretation Comments UA Spec Grav (test *NA*(12/28/17 7:27 PM) code = UA Spec Grav) [facility] [id number] 00:27:00 Test Item Value Reference Range Interpretation Comments UA Turbidity (test code = Clear (12/28/17 7:27 UA Turbidity) PM) [facility] [id number] 00:27:00 Test Item Value Reference Range Interpretation Comments UA Glucose (test code Negative (12/28/17 7:27 = UA Glucose) PM) [facility] [id number] 00:27:00 Test Item Value Reference Range Interpretation Comments UA Protein (test code Negative (12/28/17 7:27 = UA Protein) PM) [facility] [id number] 00:27:00 Test Item Value Reference Range Interpretation Comments UA Bili (test code = Negative *NA*(12/28/17 UA Bili) 7:27 PM) [facility] [id number] 00:27:00 Test Item Value Reference Range Interpretation Comments UA Ketones (test code Negative *NA*(12/28/17 = UA Ketones) 7:27 PM) [facility] [id number] 00:27:00 Test Item Value Reference Range Interpretation Comments UA Leuk Est (test Negative (12/28/17 7:27 code = UA Leuk Est) PM) [facility] [id number] 00:27:00 Test Item Value Reference Range Interpretation Comments UA Nitrite (test code Negative (12/28/17 7:27 = UA Nitrite) PM) [facility] [id number] 00:27:00 Test Item Value Reference Range Interpretation Comments UA Urobilinogen (test code = UA 0.2 0.1-1.0 Urobilinogen) [facility] [id number] 00:27:00 Test Item Value Reference Range Interpretation Comments UA pH (test code = UA pH) 7.0 1 5.0-8.0 [facility] [id number] 00:27:00 Test Item Value Reference Range Interpretation Comments UA Color (test code = Yellow *NA*(12/28/17 UA Color) 7:27 PM) [facility] [id number] 00:27:00 Test Item Value Reference Range Interpretation Comments UA Bacteria (test code = None Seen (12/28/17 UA Bacteria) 7:27 PM) [facility] [id number] 00:27:00 Test Item Value Reference Range Interpretation Comments UA WBC (test code = UA None Seen (12/28/17 WBC) 7:27 PM) [facility] [id number] 00:27:00 Test Item Value Reference Range Interpretation Comments UA Sq Epi (test code = UA Sq Epi) Rare /LPF [facility] [id number] 00:27:00 Test Item Value Reference Range Interpretation Comments Micro? (test code = Performed (12/28/17 7:27 Micro?) PM) [facility] [id number] 00:27:00 Test Item Value Reference Range Interpretation Comments UA RBC (test None Seen See_Comment [Automated [place]] code = UA RBC) (12/28/17 7:27 The system which PM) generated this result transmitted ref erence range: <=2. The reference range was not used to int erpret this result as normal/abnormal . [facility] [id number] 00:27:00 Test Item Value Reference Range Interpretation Comments Lactic Acid Lvl (test code = Lactic 1.3 0.5-2.2 Acid Lvl) [facility] [id number] 00:27:00 Test Item Value Reference Range Interpretation Comments Trig (test code = Trig) 89 [facility] AntonioYnwxxqpMRJTXB9082-25-62 00:27:00 Test Item Value Reference Range Interpretation Comments Chol (test code = Chol) 150 [facility] AntonioAcqmvxvBCFWBE8157-88-46 00:27:00 Test Item Value Reference Range Interpretation Comments HDL (test code = HDL) 33 [facility] A[id number] 00:27:00 Test Item Value Reference Range Interpretation Comments CHD Risk (test code = CHD Risk) 4.55 1 4.00-7.30 [facility] [id number] 00:27:00 Test Item Value Reference Range Interpretation Comments LDL (Calculated) (test code = LDL 99 (Calculated)) [facility] A[id number] 00:27:00 Test Item Value Reference Range Interpretation Comments VLDL (test code = VLDL) 18 1 [facility] [id number] 00:27:00 Test Item Value Reference Range Interpretation Comments Hgb A1C (test code = Hgb A1C) 6.0 [facility] [id number] 00:27:00 Test Item Value Reference Range Interpretation Comments UA Blood (test code = Negative (12/28/17 7:27 UA Blood) PM) [facility] [id number] 00:27:00 Test Item Value Reference Range Interpretation Comments UA Spec Grav (test *NA*(12/28/17 7:27 PM) code = UA Spec Grav) [facility] [id number] 00:27:00 Test Item Value Reference Range Interpretation Comments UA Turbidity (test code = Clear (12/28/17 7:27 UA Turbidity) PM) [facility] [id number] 00:27:00 Test Item Value Reference Range Interpretation Comments UA Glucose (test code Negative (12/28/17 7:27 = UA Glucose) PM) [facility] [id number] 00:27:00 Test Item Value Reference Range Interpretation Comments UA Protein (test code Negative (12/28/17 7:27 = UA Protein) PM) [facility] [id number] 00:27:00 Test Item Value Reference Range Interpretation Comments UA Bili (test code = Negative *NA*(12/28/17 UA Bili) 7:27 PM) [facility] [id number] 00:27:00 Test Item Value Reference Range Interpretation Comments UA Ketones (test code Negative *NA*(12/28/17 = UA Ketones) 7:27 PM) [facility] [id number] 00:27:00 Test Item Value Reference Range Interpretation Comments UA Leuk Est (test Negative (12/28/17 7:27 code = UA Leuk Est) PM) [facility] [id number] 00:27:00 Test Item Value Reference Range Interpretation Comments UA Nitrite (test code Negative (12/28/17 7:27 = UA Nitrite) PM) [facility] [id number] 00:27:00 Test Item Value Reference Range Interpretation Comments UA Urobilinogen (test code = UA 0.2 0.1-1.0 Urobilinogen) [facility] [id number] 00:27:00 Test Item Value Reference Range Interpretation Comments UA pH (test code = UA pH) 7.0 1 5.0-8.0 [facility] [id number] 00:27:00 Test Item Value Reference Range Interpretation Comments UA Color (test code = Yellow *NA*(12/28/17 UA Color) 7:27 PM) [facility] [id number] 00:27:00 Test Item Value Reference Range Interpretation Comments UA Bacteria (test code = None Seen (12/28/17 UA Bacteria) 7:27 PM) [facility] [id number] 00:27:00 Test Item Value Reference Range Interpretation Comments UA WBC (test code = UA None Seen (12/28/17 WBC) 7:27 PM) [facility] [id number] 00:27:00 Test Item Value Reference Range Interpretation Comments UA Sq Epi (test code = UA Sq Epi) Rare /LPF [facility] [id number] 00:27:00 Test Item Value Reference Range Interpretation Comments Micro? (test code = Performed (12/28/17 7:27 Micro?) PM) [facility] [id number] 00:27:00 Test Item Value Reference Range Interpretation Comments UA RBC (test None Seen See_Comment [Automated [place]] code = UA RBC) (12/28/17 7:27 The system which PM) generated this result transmitted ref erence range: <=2. The reference range was not used to int erpret this result as normal/abnormal . [facility] IntoOutdoorsannCHEM [id number] 00:27:00 Test Item Value Reference Range Interpretation Comments Lactic Acid Lvl (test code = Lactic 1.3 0.5-2.2 Acid Lvl) [facility] [id number] 00:27:00 Test Item Value Reference Range Interpretation Comments Trig (test code = Trig) 89 [facility] [id number] 00:27:00 Test Item Value Reference Range Interpretation Comments Chol (test code = Chol) 150 [facility] AntonioDxpgxfjWTWHZS0482-02-23 00:27:00 Test Item Value Reference Range Interpretation Comments HDL (test code = HDL) 33 [facility] [id number] 00:27:00 Test Item Value Reference Range Interpretation Comments CHD Risk (test code = CHD Risk) 4.55 1 4.00-7.30 [facility] AntonioNypldvtPQUBCF7737-02-26 00:27:00 Test Item Value Reference Range Interpretation Comments LDL (Calculated) (test code = LDL 99 (Calculated)) [facility] [id number] 00:27:00 Test Item Value Reference Range Interpretation Comments VLDL (test code = VLDL) 18 1 [facility] AntonioannSPE[facility] [id number] 00:27:00 Test Item Value Reference Range Interpretation Comments Hgb A1C (test code = Hgb A1C) 6.0 [facility] [id number] 00:27:00 Test Item Value Reference Range Interpretation Comments UA Blood (test code = Negative (12/28/17 7:27 UA Blood) PM) [facility] [id number] 00:27:00 Test Item Value Reference Range Interpretation Comments UA Spec Grav (test *NA*(12/28/17 7:27 PM) code = UA Spec Grav) [facility] [id number] 00:27:00 Test Item Value Reference Range Interpretation Comments UA Turbidity (test code = Clear (12/28/17 7:27 UA Turbidity) PM) [facility] [id number] 00:27:00 Test Item Value Reference Range Interpretation Comments UA Glucose (test code Negative (12/28/17 7:27 = UA Glucose) PM) [facility] [id number] 00:27:00 Test Item Value Reference Range Interpretation Comments UA Protein (test code Negative (12/28/17 7:27 = UA Protein) PM) [facility] [id number] 00:27:00 Test Item Value Reference Range Interpretation Comments UA Bili (test code = Negative *NA*(12/28/17 UA Bili) 7:27 PM) [facility] [id number] 00:27:00 Test Item Value Reference Range Interpretation Comments UA Ketones (test code Negative *NA*(12/28/17 = UA Ketones) 7:27 PM) [facility] AND [id number] 00:27:00 Test Item Value Reference Range Interpretation Comments UA Leuk Est (test Negative (12/28/17 7:27 code = UA Leuk Est) PM) [facility] AND [id number] 00:27:00 Test Item Value Reference Range Interpretation Comments UA Nitrite (test code Negative (12/28/17 7:27 = UA Nitrite) PM) [facility] AND [id number] 00:27:00 Test Item Value Reference Range Interpretation Comments UA Urobilinogen (test code = UA 0.2 0.1-1.0 Urobilinogen) [facility] [id number] 00:27:00 Test Item Value Reference Range Interpretation Comments UA pH (test code = UA pH) 7.0 1 5.0-8.0 [facility] [id number] 00:27:00 Test Item Value Reference Range Interpretation Comments UA Color (test code = Yellow *NA*(12/28/17 UA Color) 7:27 PM) [facility] [id number] 00:27:00 Test Item Value Reference Range Interpretation Comments UA Bacteria (test code = None Seen (12/28/17 UA Bacteria) 7:27 PM) [facility] [id number] 00:27:00 Test Item Value Reference Range Interpretation Comments UA WBC (test code = UA None Seen (12/28/17 WBC) 7:27 PM) [facility] [id number] 00:27:00 Test Item Value Reference Range Interpretation Comments UA Sq Epi (test code = UA Sq Epi) Rare /LPF [facility] [id number] 00:27:00 Test Item Value Reference Range Interpretation Comments Micro? (test code = Performed (12/28/17 7:27 Micro?) PM) [facility] [id number] 00:27:00 Test Item Value Reference Range Interpretation Comments UA RBC (test None Seen See_Comment [Automated [place]] code = UA RBC) (12/28/17 7:27 The system which PM) generated this result transmitted ref erence range: <=2. The reference range was not used to int erpret this result as normal/abnormal . [facility] [employer] [id number] 18:56:00 Test Item Value Reference Range Interpretation Comments eGFR (test code = eGFR) 69 [facility] [employer] [id number] 18:56:00 Test Item Value Reference Range Interpretation Comments POC Creatinine (test code = POC 0.7 0.5-1.4 Creatinine) [facility] [id number] 18:56:00 Test Item Value Reference Range Interpretation Comments eGFR (test code = eGFR) 69 [facility] [employer] [id number] 18:56:00 Test Item Value Reference Range Interpretation Comments POC Creatinine (test code = POC 0.7 0.5-1.4 Creatinine) [facility] [id number] 18:56:00 Test Item Value Reference Range Interpretation Comments eGFR (test code = eGFR) 69 [facility] [id number] 18:56:00 Test Item Value Reference Range Interpretation Comments POC Creatinine (test code = POC 0.7 0.5-1.4 Creatinine) [facility] [id number] 18:56:00 Test Item Value Reference Range Interpretation Comments eGFR (test code = eGFR) 69 [facility] [id number] 18:56:00 Test Item Value Reference Range Interpretation Comments POC Creatinine (test code = POC 0.7 0.5-1.4 Creatinine) [facility]2018-10-23 18:56:00 Test Item Value Reference Range Interpretation Comments eGFR (test code = eGFR) 69 [facility]2018-10-23 18:56:00 Test Item Value Reference Range Interpretation Comments POC Creatinine (test code = POC 0.7 0.5-1.4 Creatinine) [facility]2018-10-23 18:56:00 Test Item Value Reference Range Interpretation Comments eGFR (test code = eGFR) 69 [facility]2018-10-23 18:56:00 Test Item Value Reference Range Interpretation Comments POC Creatinine (test code = POC 0.7 0.5-1.4 Creatinine) [facility]2018-10-23 18:56:00 Test Item Value Reference Range Interpretation Comments eGFR (test code = eGFR) 69 [facility]2018-10-23 18:56:00 Test Item Value Reference Range Interpretation Comments POC Creatinine (test code = POC 0.7 0.5-1.4 Creatinine) [facility]2018-10-23 18:56:00 Test Item Value Reference Range Interpretation Comments eGFR (test code = eGFR) 69 [facility]2018-10-23 18:56:00 Test Item Value Reference Range Interpretation Comments POC Creatinine (test code = POC 0.7 0.5-1.4 Creatinine) [facility] [id number] 18:34:00 Test Item Value Reference Range Interpretation Comments Total CK (test code = Total CK) 105 12-191 [facility] [id number] 18:34:00 Test Item Value Reference Range Interpretation Comments Globulin (test code = Globulin) 5.2 2.7-4.2 [facility]2018-10-23 18:34:00 Test Item Value Reference Range Interpretation Comments A/G Ratio (test code = A/G Ratio) 0.8 1 0.7-1.6 [facility]2018-10-23 18:34:00 Test Item Value Reference Range Interpretation Comments Albumin Lvl (test code = Albumin Lvl) 4.4 3.5-5.0 [place] [id number] 18:34:00 Test Item Value Reference Range Interpretation Comments Total Protein (test code = Total 9.6 6.4-8.4 Protein) [place] [id number] 18:34:00 Test Item Value Reference Range Interpretation Comments Bili Direct (test code 0.1 See_Comment [Aut omated message] The = Bili Direct) system which generated this result tra nsmitted reference range : <=0.3. The reference r bret was not used to int erpret this result as mateo l/abnormal. [facility]2018-10-23 18:34:00 Test Item Value Reference Range Interpretation Comments Bili Total (test code = Bili Total) 0.6 0.2-1.3 [place] [id number] 18:34:00 Test Item Value Reference Range Interpretation Comments Bili Indirect (test 0.5 See_Comment [Automa jw message] The code = Bili Indirect) system which generated this result tra nsmitted reference range : <=1.0. The reference r bret was not used to int erpret this result as normal/abnormal . [facility]2018-10-23 18:34:00 Test Item Value Reference Range Interpretation Comments AST (test code = AST) 23 See_Comment [Auto mated message] The system which ge nerated this result transmit jw reference range : <=37. The reference range was not used to interpr et this result as mateo l/abnormal. [facility]2018-10-23 18:34:00 Test Item Value Reference Range Interpretation Comments ALT (test code = ALT) 23 See_Comment [Auto mated message] The system which ge nerated this result transmit jw reference range : <=65. The reference range was not used to interpr et this result as mateo l/abnormal. [facility]2018-10-23 18:34:00 Test Item Value Reference Range Interpretation Comments Alk Phos (test code = Alk Phos) 161 39-136 [place] [id number] 18:34:00 Test Item Value Reference Range Interpretation Comments Lipase Lvl (test code = Lipase Lvl) 202 73-393 [facility]2018-10-23 18:34:00 Test Item Value Reference Range Interpretation Comments Lactic Acid WB (test code = Lactic Acid 2.5 0.5-2.2 WB) [facility][id number] 18:34:00 Test Item Value Reference Range Interpretation Comments AGAP (test code = AGAP) 17.3 10.0-20.0 [facility] Hospital[id number] 18:34:00 Test Item Value Reference Range Interpretation Comments Calcium Lvl (test code = Calcium Lvl) 9.9 8.5-10.5 [facility] HospitalCrnulcwEXGUTFBRGLRD5772-09-25 18:34:00 Test Item Value Reference Range Interpretation Comments Chloride Lvl (test code = Chloride Lvl) 93 95-109 [facility] HospitalShsfextXPMJDQUFGESE9024-86-83 18:34:00 Test Item Value Reference Range Interpretation Comments CO2 (test code = CO2) 26 24-32 [facility] HospitalVchjljqPDESZSGJRISV4907-01-80 18:34:00 Test Item Value Reference Range Interpretation Comments Sodium Lvl (test code = Sodium Lvl) 132 135-145 [facility] HospitalRtzonzvPXLQLXTNIXFC0628-80-44 18:34:00 Test Item Value Reference Range Interpretation Comments Potassium Lvl (test code = Potassium 4.3 3.5-5.1 Lvl) [facility] HospitalSumossyJQKZJHOULXZV1100-11-47 18:34:00 Test Item Value Reference Range Interpretation Comments BUN (test code = BUN) 18 7-22 [facility] HospitalVvtmczjZUYBKZWYHXSP4105-26-07 18:34:00 Test Item Value Reference Range Interpretation Comments Glucose Lvl (test code = Glucose Lvl) 133 70-99 [facility] HospitalKsrzzeaBACDXGHHOHHM2522-35-01 18:34:00 Test Item Value Reference Range Interpretation Comments Creatinine Lvl (test code = Creatinine 0.99 0.50-1.40 Lvl) [facility]APALKQR4450-45-66 18:34:00 Test Item Value Reference Range Interpretation Comments Hct (test code = Hct) 40.9 42.0-54.0 [facility] HospitalAjpbozqQQQHCLKXYJ8950-21-69 18:34:00 Test Item Value Reference Range Interpretation Comments WBC (test code = WBC) 13.5 3.7-10.4 [facility] HospitalYkjwztdZOJPEKXPVH1502-78-28 18:34:00 Test Item Value Reference Range Interpretation Comments RBC (test code = RBC) 4.91 4.70-6.10 [facility] HospitalQvfcexzAYEEOJUSIW5778-22-17 18:34:00 Test Item Value Reference Range Interpretation Comments Hgb (test code = Hgb) 13.5 14.0-18.0 [facility] HospitalYfqsyqnXSITCWSLWT0996-29-42 18:34:00 Test Item Value Reference Range Interpretation Comments MCV (test code = MCV) 83.4 80.0-94.0 [facility] HospitalKebozenTPGFBIJIIO1659-54-82 18:34:00 Test Item Value Reference Range Interpretation Comments MCH (test code = MCH) 27.5 pg 27.0-31.0 [facility] HospitalCidineuEDIKQUYLGD9342-90-63 18:34:00 Test Item Value Reference Range Interpretation Comments RDW (test code = RDW) 18.2 11.5-14.5 [facility] HospitalAgehgjzMGTCWOTGFN3869-84-07 18:34:00 Test Item Value Reference Range Interpretation Comments MCHC (test code = MCHC) 33.0 32.0-36.0 [facility] HospitalHxnofxmATVVBZCIAW8797-95-57 18:34:00 Test Item Value Reference Range Interpretation Comments Platelet (test code = Platelet) 216 133-450 [facility] HospitalEesqugdXOWOWNIYJK2821-79-13 18:34:00 Test Item Value Reference Range Interpretation Comments MPV (test code = MPV) 8.5 7.4-10.4 [facility] HospitalLusipckEBQWNHCUDD2725-81-48 18:34:00 Test Item Value Reference Range Interpretation Comments PTT (test code = PTT) 31.5 s 22.9-35.8 [facility] HospitalUcgmosqMSXOYPHMBD3732-77-64 18:34:00 Test Item Value Reference Range Interpretation Comments PT (test code = PT) 13.2 s 12.0-14.7 [facility] HospitalErpauobOHBDPJQDGT3182-68-64 18:34:00 Test Item Value Reference Range Interpretation Comments INR (test code = INR) 1.00 1 0.85-1.17 [facility] HospitalEbsveaoABUCEEXNCN1541-48-61 18:34:00 Test Item Value Reference Range Interpretation Comments Basophils # (test code 0.2 See_Comment [Aut omated message] The = Basophils #) system which generated this result tra nsmitted reference range : <=0.2. The reference r bret was not used to int erpret this result as normal/abnormal . [facility] HospitalRpooucwDVFFDMUPPF0815-95-05 18:34:00 Test Item Value Reference Range Interpretation Comments Lymphocytes (test code = Lymphocytes) 11.4 20.0-40.0 [facility] HospitalTfxzylmENTXNADCRD4160-85-99 18:34:00 Test Item Value Reference Range Interpretation Comments Monocytes (test code = Monocytes) 4.4 2.0-12.0 [facility] HospitalFejvanhPOZOFCOPKF8511-19-49 18:34:00 Test Item Value Reference Range Interpretation Comments Neutrophils # (test code = Neutrophils 11.1 1.5-8.1 #) [id number] 18:34:00 Test Item Value Reference Range Interpretation Comments Lymphocytes # (test code = Lymphocytes 1.5 1.0-5.5 #) [facility] HospitalIpltuwaNHAAIIROPI3948-57-87 18:34:00 Test Item Value Reference Range Interpretation Comments Eosinophils # (test code 0.1 See_Comment [A utomated message] The = Eosinophils #) system [facility] generated this result tra nsmitted reference range : <=0.5. The reference r bret was not used to int erpret this result as normal/abnormal . [facility] HospitalRtxwdhaZZKBPWRIVM2166-51-63 18:34:00 Test Item Value Reference Range Interpretation Comments Monocytes # (test code 0.6 See_Comment [Aut omated message] The = Monocytes #) system which generated this result tra nsmitted reference range : <=0.8. The reference r bret was not used to int erpret this result as normal/abnormal . [facility] HospitalBeeezrvFDEDEKEBOQ3650-67-39 18:34:00 Test Item Value Reference Range Interpretation Comments Eosinophils (test code = 0.9 See_Comment [A utomated message] The Eosinophils) system which ge nerated this result tra nsmitted reference range : <=4.0. The reference r bret was not used to int erpret this result as normal/abnormal . [facility] HospitalVioklodCLTHUXVOWE1457-99-53 18:34:00 Test Item Value Reference Range Interpretation Comments Basophils (test code = 1.5 See_Comment [Aut omated message] The Basophils) system which ge nerated this result tra nsmitted reference range : <=1.0. The reference r bret was not used to int erpret this result as normal/abnormal . [place] [address]-10-23 18:34:00 Test Item Value Reference Range Interpretation Comments Segs (test code = Segs) 81.8 45.0-75.0 [facility] [id number] 18:34:00 Test Item Value Reference Range Interpretation Comments Total CK (test code = Total CK) 105 12-191 [facility] [id number] 18:34:00 Test Item Value Reference Range Interpretation Comments Globulin (test code = Globulin) 5.2 2.7-4.2 [facility]2018-10-23 18:34:00 Test Item Value Reference Range Interpretation Comments A/G Ratio (test code = A/G Ratio) 0.8 1 0.7-1.6 [facility]2018-10-23 18:34:00 Test Item Value Reference Range Interpretation Comments Albumin Lvl (test code = Albumin Lvl) 4.4 3.5-5.0 [facility]2018-10-23 18:34:00 Test Item Value Reference Range Interpretation Comments Total Protein (test code = Total 9.6 6.4-8.4 Protein) [facility]2018-10-23 18:34:00 Test Item Value Reference Range Interpretation Comments Bili Direct (test code 0.1 See_Comment [Aut omated message] The = Bili Direct) system which generated this result tra nsmitted reference range : <=0.3. The reference r bret was not used to int erpret this result as mateo l/abnormal. [facility] [id number] 18:34:00 Test Item Value Reference Range Interpretation Comments Bili Total (test code = Bili Total) 0.6 0.2-1.3 [facility]2018-10-23 18:34:00 Test Item Value Reference Range Interpretation Comments Bili Indirect (test 0.5 See_Comment [Automa jw message] The code = Bili Indirect) system which generated this result tra nsmitted reference range : <=1.0. The reference r bret was not used to int erpret this result as normal/abnormal . [facility] [id number] 18:34:00 Test Item Value Reference Range Interpretation Comments AST (test code = AST) 23 See_Comment [Auto mated message] The system which ge nerated this result transmit jw reference range : <=37. The reference range was not used to interpr et this result as mateo l/abnormal. [facility]2018-10-23 18:34:00 Test Item Value Reference Range Interpretation Comments ALT (test code = ALT) 23 See_Comment [Auto mated message] The system which ge nerated this result transmit jw reference range : <=65. The reference range was not used to interpr et this result as mateo l/abnormal. [facility]2018-10-23 18:34:00 Test Item Value Reference Range Interpretation Comments Alk Phos (test code = Alk Phos) 161 39-136 [facility]2018-10-23 18:34:00 Test Item Value Reference Range Interpretation Comments Lipase Lvl (test code = Lipase Lvl) 202 73-393 [facility]2018-10-23 18:34:00 Test Item Value Reference Range Interpretation Comments Lactic Acid WB (test code = Lactic Acid 2.5 0.5-2.2 WB) [facility]nspjjqBPPAKVXHZCTK5601-79-64 18:34:00 Test Item Value Reference Range Interpretation Comments AGAP (test code = AGAP) 17.3 10.0-20.0 [facility] HospitalPsukpkpTKRYMWQYBAVA8753-00-71 18:34:00 Test Item Value Reference Range Interpretation Comments Calcium Lvl (test code = Calcium Lvl) 9.9 8.5-10.5 [facility] HospitalWmpcxukUITDLHJQTZQZ8965-24-75 18:34:00 Test Item Value Reference Range Interpretation Comments Chloride Lvl (test code = Chloride Lvl) 93 95-109 [facility]XjmlqueVURJSSBYVVLE4359-14-20 18:34:00 Test Item Value Reference Range Interpretation Comments CO2 (test code = CO2) 26 24-32 [facility] HospitalRoxntrqCFFIIALOGKUQ8584-45-30 18:34:00 Test Item Value Reference Range Interpretation Comments Sodium Lvl (test code = Sodium Lvl) 132 135-145 [facility] HospitalGxdckdpTXPYGDUYAYKB3696-15-71 18:34:00 Test Item Value Reference Range Interpretation Comments Potassium Lvl (test code = Potassium 4.3 3.5-5.1 Lvl) [facility] HospitalNdxtbcqMZYTPNJGNRTU5201-25-23 18:34:00 Test Item Value Reference Range Interpretation Comments BUN (test code = BUN) 18 7-22 [facility] HospitalIvojaonXAZPSLHKPKUK1768-29-40 18:34:00 Test Item Value Reference Range Interpretation Comments Glucose Lvl (test code = Glucose Lvl) 133 70-99 [facility] HospitalKptdyyfCYDRETFSVQLG8874-03-50 18:34:00 Test Item Value Reference Range Interpretation Comments Creatinine Lvl (test code = Creatinine 0.99 0.50-1.40 Lvl) [facility] HospitalKptryuaYSMIXMLRYG2494-89-70 18:34:00 Test Item Value Reference Range Interpretation Comments Hct (test code = Hct) 40.9 42.0-54.0 [facility] HospitalQhdymrxCAWVHSCMMA2908-29-80 18:34:00 Test Item Value Reference Range Interpretation Comments WBC (test code = WBC) 13.5 3.7-10.4 [facility] HospitalVaoeyooMNYTKXTFSL0928-59-47 18:34:00 Test Item Value Reference Range Interpretation Comments RBC (test code = RBC) 4.91 4.70-6.10 [facility] HospitalZucrsbtODGLIHSABM8985-07-35 18:34:00 Test Item Value Reference Range Interpretation Comments Hgb (test code = Hgb) 13.5 14.0-18.0 [facility] HospitalRcppnfyIUOYNKDHYM3084-66-56 18:34:00 Test Item Value Reference Range Interpretation Comments MCV (test code = MCV) 83.4 80.0-94.0 [facility] HospitalOrhhxfgYEBORYVLUW0209-81-85 18:34:00 Test Item Value Reference Range Interpretation Comments MCH (test code = MCH) 27.5 pg 27.0-31.0 [facility] HospitalWxdufqzGOSBLNBYJP5816-15-62 18:34:00 Test Item Value Reference Range Interpretation Comments RDW (test code = RDW) 18.2 11.5-14.5 [facility] HospitalTtprscuQMCVUYMOUA4581-68-16 18:34:00 Test Item Value Reference Range Interpretation Comments MCHC (test code = MCHC) 33.0 32.0-36.0 [facility] HospitalPekawkgZZIPAWKDXZ9749-01-15 18:34:00 Test Item Value Reference Range Interpretation Comments Platelet (test code = Platelet) 216 133-450 [facility] HospitalBwnbtnpHQWIVBHWHA1643-93-13 18:34:00 Test Item Value Reference Range Interpretation Comments MPV (test code = MPV) 8.5 7.4-10.4 [facility] HospitalUvzetfjDCKOAGSOJK3133-27-33 18:34:00 Test Item Value Reference Range Interpretation Comments PTT (test code = PTT) 31.5 s 22.9-35.8 [facility] HospitalEbunmdcZRGTKXCWHC1285-82-98 18:34:00 Test Item Value Reference Range Interpretation Comments PT (test code = PT) 13.2 s 12.0-14.7 [facility] HospitalAoxjqzaTUGGNGFZFS8284-59-49 18:34:00 Test Item Value Reference Range Interpretation Comments INR (test code = INR) 1.00 1 0.85-1.17 [place] [address]-10-23 18:34:00 Test Item Value Reference Range Interpretation Comments Basophils # (test code 0.2 See_Comment [Aut omated message] The = Basophils #) system which generated this result tra nsmitted reference range : <=0.2. The reference r bret was not used to int erpret this result as normal/abnormal . [facility] HospitalYecxitqMAFMQRBKVA2518-25-55 18:34:00 Test Item Value Reference Range Interpretation Comments Lymphocytes (test code = Lymphocytes) 11.4 20.0-40.0 [facility] HospitalLxgdxqnYKYJXHYGCR8252-76-34 18:34:00 Test Item Value Reference Range Interpretation Comments Monocytes (test code = Monocytes) 4.4 2.0-12.0 [facility] HospitalJzsrfdpDAWGBDNDLX7029-72-48 18:34:00 Test Item Value Reference Range Interpretation Comments Neutrophils # (test code = Neutrophils 11.1 1.5-8.1 #) [facility] HospitalLomgvomMFRIHYGPEW4650-35-96 18:34:00 Test Item Value Reference Range Interpretation Comments Lymphocytes # (test code = Lymphocytes 1.5 1.0-5.5 #) [facility] HospitalHoiosdmYNATKYLJHJ2665-71-72 18:34:00 Test Item Value Reference Range Interpretation Comments Eosinophils # (test code 0.1 See_Comment [A utomated message] The = Eosinophils #) system whic h generated this result tra nsmitted reference range : <=0.5. The reference r bret was not used to int erpret this result as normal/abnormal . [facility] HospitalMmnxjhlYJJENRGXHO2412-42-56 18:34:00 Test Item Value Reference Range Interpretation Comments Monocytes # (test code 0.6 See_Comment [Aut omated message] The = Monocytes #) system which generated this result tra nsmitted reference range : <=0.8. The reference r bret was not used to int erpret this result as normal/abnormal . [facility] CentralKfxcvxkRNSFVCIYFS3436-56-71 18:34:00 Test Item Value Reference Range Interpretation Comments Eosinophils (test code = 0.9 See_Comment [A utomated message] The Eosinophils) system which ge nerated this result tra nsmitted reference range : <=4.0. The reference r bret was not used to int erpret this result as normal/abnormal . [facility] HospitalBtrrhtxKXGKSWWEID0520-72-86 18:34:00 Test Item Value Reference Range Interpretation Comments Basophils (test code = 1.5 See_Comment [Aut omated message] The Basophils) system which ge nerated this result tra nsmitted reference range : <=1.0. The reference r bret was not used to int erpret this result as normal/abnormal . [facility] HospitalNnneojjUVWHYBHBZQ8182-42-78 18:34:00 Test Item Value Reference Range Interpretation Comments Segs (test code = Segs) 81.8 45.0-75.0 [facility] [id number] 18:34:00 Test Item Value Reference Range Interpretation Comments Total CK (test code = Total CK) 105 12-191 [facility] NWMNE5466-01-00 18:34:00 Test Item Value Reference Range Interpretation Comments Globulin (test code = Globulin) 5.2 2.7-4.2 [facility] DPGIP4918-74-08 18:34:00 Test Item Value Reference Range Interpretation Comments A/G Ratio (test code = A/G Ratio) 0.8 1 0.7-1.6 [facility] [id number] 18:34:00 Test Item Value Reference Range Interpretation Comments Albumin Lvl (test code = Albumin Lvl) 4.4 3.5-5.0 [facility] [employer] YERHU8682-36-03 18:34:00 Test Item Value Reference Range Interpretation Comments Total Protein (test code = Total 9.6 6.4-8.4 Protein) [facility] [id number] 18:34:00 Test Item Value Reference Range Interpretation Comments Bili Direct (test code 0.1 See_Comment [Aut omated message] The = Bili Direct) system which generated this result tra nsmitted reference range : <=0.3. The reference r bret was not used to int erpret this result as mateo l/abnormal. [facility]2018-10-23 18:34:00 Test Item Value Reference Range Interpretation Comments Bili Total (test code = Bili Total) 0.6 0.2-1.3 [place] [id number] 18:34:00 Test Item Value Reference Range Interpretation Comments Bili Indirect (test 0.5 See_Comment [Automa jw message] The code = Bili Indirect) system which generated this result tra nsmitted reference range : <=1.0. The reference r bret was not used to int erpret this result as normal/abnormal . [facility]2018-10-23 18:34:00 Test Item Value Reference Range Interpretation Comments AST (test code = AST) 23 See_Comment [Auto mated message] The system which ge nerated this result transmit jw reference range : <=37. The reference range was not used to interpr et this result as mateo l/abnormal. [facility]2018-10-23 18:34:00 Test Item Value Reference Range Interpretation Comments ALT (test code = ALT) 23 See_Comment [Auto mated message] The system which ge nerated this result transmit jw reference range : <=65. The reference range was not used to interpr et this result as mateo l/abnormal. [facility]2018-10-23 18:34:00 Test Item Value Reference Range Interpretation Comments Alk Phos (test code = Alk Phos) 161 39-136 [facility]2018-10-23 18:34:00 Test Item Value Reference Range Interpretation Comments Lipase Lvl (test code = Lipase Lvl) 202 73-393 [facility]2018-10-23 18:34:00 Test Item Value Reference Range Interpretation Comments Lactic Acid WB (test code = Lactic Acid 2.5 0.5-2.2 WB) [facility] HospitalLzgcarmDQYQPMGHXRWQ7735-19-51 18:34:00 Test Item Value Reference Range Interpretation Comments AGAP (test code = AGAP) 17.3 10.0-20.0 [place] 119508-10-23 18:34:00 Test Item Value Reference Range Interpretation Comments Calcium Lvl (test code = Calcium Lvl) 9.9 8.5-10.5 [facility]WgkzsjwRXSBOPQJTJXU9683-91-81 18:34:00 Test Item Value Reference Range Interpretation Comments Chloride Lvl (test code = Chloride Lvl) 93 95-109 [facility]FhwahtbOZACSAYOGZHJ0869-24-25 18:34:00 Test Item Value Reference Range Interpretation Comments CO2 (test code = CO2) 26 24-32 [facility] HospitalAieocrqTBMVMXJVLSSO0759-09-68 18:34:00 Test Item Value Reference Range Interpretation Comments Sodium Lvl (test code = Sodium Lvl) 132 135-145 [facility]TyfpdbsFMCSBQFHZJUX8565-49-29 18:34:00 Test Item Value Reference Range Interpretation Comments Potassium Lvl (test code = Potassium 4.3 3.5-5.1 Lvl) [facility] HospitalTssbnwdIKPKHPMFXKCR2971-09-27 18:34:00 Test Item Value Reference Range Interpretation Comments BUN (test code = BUN) 18 7-22 [facility] HospitalKigfspfYTIFXGWDFBXA3358-31-38 18:34:00 Test Item Value Reference Range Interpretation Comments Glucose Lvl (test code = Glucose Lvl) 133 70-99 [facility] HospitalGelhobhWHOITBBPACHF9467-25-26 18:34:00 Test Item Value Reference Range Interpretation Comments Creatinine Lvl (test code = Creatinine 0.99 0.50-1.40 Lvl) [facility] HospitalOujwomgGTSSGFOXYZ5169-74-05 18:34:00 Test Item Value Reference Range Interpretation Comments Hct (test code = Hct) 40.9 42.0-54.0 [facility] HospitalWosnhzzHWWSJKFFYW4706-82-02 18:34:00 Test Item Value Reference Range Interpretation Comments WBC (test code = WBC) 13.5 3.7-10.4 [facility] HospitalFowrapgPDUVWQUZON5691-36-13 18:34:00 Test Item Value Reference Range Interpretation Comments RBC (test code = RBC) 4.91 4.70-6.10 [facility] HospitalIumyhbbVKNQCDAGXX6142-82-43 18:34:00 Test Item Value Reference Range Interpretation Comments Hgb (test code = Hgb) 13.5 14.0-18.0 [facility] HospitalShsagjaOVASFOMKUH3965-53-64 18:34:00 Test Item Value Reference Range Interpretation Comments MCV (test code = MCV) 83.4 80.0-94.0 [facility] HospitalAqpxhstEBTPAAPJNC5851-77-33 18:34:00 Test Item Value Reference Range Interpretation Comments MCH (test code = MCH) 27.5 pg 27.0-31.0 [facility] HospitalHepjxylAUOVFOVGFK9146-35-07 18:34:00 Test Item Value Reference Range Interpretation Comments RDW (test code = RDW) 18.2 11.5-14.5 [facility] HospitalPvejspjPDDABEYPEI6861-14-71 18:34:00 Test Item Value Reference Range Interpretation Comments MCHC (test code = MCHC) 33.0 32.0-36.0 [facility] HospitalMyimovhPOUDOTZVYA0420-76-81 18:34:00 Test Item Value Reference Range Interpretation Comments Platelet (test code = Platelet) 216 133-450 [facility] HospitalXeldfbiBAISQMTTIM7487-95-82 18:34:00 Test Item Value Reference Range Interpretation Comments MPV (test code = MPV) 8.5 7.4-10.4 [facility] HospitalDhvtwkxFMXHTNSQFS5895-70-95 18:34:00 Test Item Value Reference Range Interpretation Comments PTT (test code = PTT) 31.5 s 22.9-35.8 [facility] HospitalNloxgspJVWVQSLUHW5994-09-53 18:34:00 Test Item Value Reference Range Interpretation Comments PT (test code = PT) 13.2 s 12.0-14.7 [facility] HospitalSdsctkiFAIMSWOLRE9009-44-25 18:34:00 Test Item Value Reference Range Interpretation Comments INR (test code = INR) 1.00 1 0.85-1.17 [facility] HospitalTjdhwcmEXBOMMKVHI7276-64-09 18:34:00 Test Item Value Reference Range Interpretation Comments Basophils # (test code 0.2 See_Comment [Aut omated message] The = Basophils #) system which generated this result tra nsmitted reference range : <=0.2. The reference r bret was not used to int erpret this result as normal/abnormal . [facility] HospitalBwsozreVZUNNJHMVG5712-75-74 18:34:00 Test Item Value Reference Range Interpretation Comments Lymphocytes (test code = Lymphocytes) 11.4 20.0-40.0 [facility] HospitalVpzrusaBOMSODVNEW1351-17-10 18:34:00 Test Item Value Reference Range Interpretation Comments Monocytes (test code = Monocytes) 4.4 2.0-12.0 [facility] HospitalNoraupnINTJWQPYDG6775-66-10 18:34:00 Test Item Value Reference Range Interpretation Comments Neutrophils # (test code = Neutrophils 11.1 1.5-8.1 #) [facility]QnecyuvWKKYCGPYKJ0440-41-00 18:34:00 Test Item Value Reference Range Interpretation Comments Lymphocytes # (test code = Lymphocytes 1.5 1.0-5.5 #) [facility] HospitalWvhzcpbFAKZACJSUE3168-56-46 18:34:00 Test Item Value Reference Range Interpretation Comments Eosinophils # (test code 0.1 See_Comment [A utomated message] The = Eosinophils #) system whic h generated this result tra nsmitted reference range : <=0.5. The reference r bret was not used to int erpret this result as normal/abnormal . [facility] HospitalWzkavtrWSDYJBSBSF3729-93-90 18:34:00 Test Item Value Reference Range Interpretation Comments Monocytes # (test code 0.6 See_Comment [Aut omated message] The = Monocytes #) system which generated this result tra nsmitted reference range : <=0.8. The reference r bret was not used to int erpret this result as normal/abnormal . [facility] HospitalDfzfjbqUJCOSWXPCK6723-28-39 18:34:00 Test Item Value Reference Range Interpretation Comments Eosinophils (test code = 0.9 See_Comment [A utomated message] The Eosinophils) system which ge nerated this result tra nsmitted reference range : <=4.0. The reference r bret was not used to int erpret this result as normal/abnormal . [facility] HospitalVdpxltrMYKHQLBVFT9134-84-24 18:34:00 Test Item Value Reference Range Interpretation Comments Basophils (test code = 1.5 See_Comment [Aut omated message] The Basophils) system which ge nerated this result tra nsmitted reference range : <=1.0. The reference r bret was not used to int erpret this result as normal/abnormal . [facility] HospitalUrfjtdpDDYJYTQHYE0163-63-16 18:34:00 Test Item Value Reference Range Interpretation Comments Segs (test code = Segs) 81.8 45.0-75.0 [facility] NRGLQEB0748-73-69 18:34:00 Test Item Value Reference Range Interpretation Comments Total CK (test code = Total CK) 105 12-191 [facility]CHE[facility] [id number] 18:34:00 Test Item Value Reference Range Interpretation Comments Globulin (test code = Globulin) 5.2 2.7-4.2 [place] 884068-10-23 18:34:00 Test Item Value Reference Range Interpretation Comments A/G Ratio (test code = A/G Ratio) 0.8 1 0.7-1.6 [place] 884068-10-23 18:34:00 Test Item Value Reference Range Interpretation Comments Albumin Lvl (test code = Albumin Lvl) 4.4 3.5-5.0 [place] [address]-10-23 18:34:00 Test Item Value Reference Range Interpretation Comments Total Protein (test code = Total 9.6 6.4-8.4 Protein) [place] [address]-10-23 18:34:00 Test Item Value Reference Range Interpretation Comments Bili Direct (test code 0.1 See_Comment [Aut omated message] The = Bili Direct) system which generated this result tra nsmitted reference range : <=0.3. The reference r bret was not used to int erpret this result as mateo l/abnormal. [place] 884068-10-23 18:34:00 Test Item Value Reference Range Interpretation Comments Bili Total (test code = Bili Total) 0.6 0.2-1.3 [place] 884068-10-23 18:34:00 Test Item Value Reference Range Interpretation Comments Bili Indirect (test 0.5 See_Comment [Automa jw message] The code = Bili Indirect) system which generated this result tra nsmitted reference range : <=1.0. The reference r bret was not used to int erpret this result as normal/abnormal . [place] 884068-10-23 18:34:00 Test Item Value Reference Range Interpretation Comments AST (test code = AST) 23 See_Comment [Auto mated message] The system which ge nerated this result transmit jw reference range : <=37. The reference range was not used to interpr et this result as mateo l/abnormal. [place] [address]-10-23 18:34:00 Test Item Value Reference Range Interpretation Comments ALT (test code = ALT) 23 See_Comment [Auto mated message] The system which ge nerated this result transmit jw reference range : <=65. The reference range was not used to interpr et this result as mateo l/abnormal. [facility]2018-10-23 18:34:00 Test Item Value Reference Range Interpretation Comments Alk Phos (test code = Alk Phos) 161 39-136 [facility]2018-10-23 18:34:00 Test Item Value Reference Range Interpretation Comments Lipase Lvl (test code = Lipase Lvl) 202 73-393 [facility]2018-10-23 18:34:00 Test Item Value Reference Range Interpretation Comments Lactic Acid WB (test code = Lactic Acid 2.5 0.5-2.2 WB) [facility]EfsftjfDMRIFZAVVTDX2017-95-44 18:34:00 Test Item Value Reference Range Interpretation Comments AGAP (test code = AGAP) 17.3 10.0-20.0 [facility] HospitalZpvhxmlNLNYMVCCLEYG9588-75-74 18:34:00 Test Item Value Reference Range Interpretation Comments Calcium Lvl (test code = Calcium Lvl) 9.9 8.5-10.5 [facility] HospitalQgbbzhaRMXTOVVKKZXY8452-65-51 18:34:00 Test Item Value Reference Range Interpretation Comments Chloride Lvl (test code = Chloride Lvl) 93 95-109 [facility] HospitalYiijedsOJIWJKTMUFUM6675-30-42 18:34:00 Test Item Value Reference Range Interpretation Comments CO2 (test code = CO2) 26 24-32 [facility] HospitalMrmcbyrLOSUQGUXZQTB0384-05-03 18:34:00 Test Item Value Reference Range Interpretation Comments Sodium Lvl (test code = Sodium Lvl) 132 135-145 [facility]VrlxdxwBZKUHSFBBKHP9664-20-32 18:34:00 Test Item Value Reference Range Interpretation Comments Potassium Lvl (test code = Potassium 4.3 3.5-5.1 Lvl) [facility] HospitalDnaquxwEVRYIVSUPBOZ7959-51-57 18:34:00 Test Item Value Reference Range Interpretation Comments BUN (test code = BUN) 18 7-22 [facility]ApnqobzMNECIMAGNMVM0841-80-92 18:34:00 Test Item Value Reference Range Interpretation Comments Glucose Lvl (test code = Glucose Lvl) 133 70-99 [facility] HospitalZfqvovvLQIUFMHCXOFL6587-65-68 18:34:00 Test Item Value Reference Range Interpretation Comments Creatinine Lvl (test code = Creatinine 0.99 0.50-1.40 Lvl) [facility] CentralVqoktsnKNNORSWOBA4239-17-32 18:34:00 Test Item Value Reference Range Interpretation Comments Hct (test code = Hct) 40.9 42.0-54.0 [facility] HospitalQxhzbdzADPUGXRHSQ6976-96-49 18:34:00 Test Item Value Reference Range Interpretation Comments WBC (test code = WBC) 13.5 3.7-10.4 [facility] HospitalKxdakobDJYHKZHQDF7632-75-06 18:34:00 Test Item Value Reference Range Interpretation Comments RBC (test code = RBC) 4.91 4.70-6.10 [facility] HospitalNrfuzryXVXFDCIDVJ9024-25-42 18:34:00 Test Item Value Reference Range Interpretation Comments Hgb (test code = Hgb) 13.5 14.0-18.0 [facility] HospitalCwplzuaTMTOFIRCMG3907-46-61 18:34:00 Test Item Value Reference Range Interpretation Comments MCV (test code = MCV) 83.4 80.0-94.0 [facility] HospitalCcgzzfjUDKZKYKAPW1617-45-67 18:34:00 Test Item Value Reference Range Interpretation Comments MCH (test code = MCH) 27.5 pg 27.0-31.0 [facility] HospitalOanwbuqJOZFQWOWUH0499-82-73 18:34:00 Test Item Value Reference Range Interpretation Comments RDW (test code = RDW) 18.2 11.5-14.5 [facility] HospitalEbgtdsqAXCXIDNDLW2270-05-21 18:34:00 Test Item Value Reference Range Interpretation Comments MCHC (test code = MCHC) 33.0 32.0-36.0 [facility] HospitalEyktzsfKOQIEMRUGH3975-36-95 18:34:00 Test Item Value Reference Range Interpretation Comments Platelet (test code = Platelet) 216 133-450 [facility] HospitalVukalxqGKTAZLSUVQ4310-52-06 18:34:00 Test Item Value Reference Range Interpretation Comments MPV (test code = MPV) 8.5 7.4-10.4 [facility] HospitalMbvtmchWALJASWSAQ8315-41-76 18:34:00 Test Item Value Reference Range Interpretation Comments PTT (test code = PTT) 31.5 s 22.9-35.8 [facility] HospitalWfifklyTAKTDAPRLH0425-08-37 18:34:00 Test Item Value Reference Range Interpretation Comments PT (test code = PT) 13.2 s 12.0-14.7 [facility] HospitalCnzpcroZBBQTYHJOX8176-36-18 18:34:00 Test Item Value Reference Range Interpretation Comments INR (test code = INR) 1.00 1 0.85-1.17 [facility] HospitalXbcvaawDVHXLDGART5113-66-64 18:34:00 Test Item Value Reference Range Interpretation Comments Basophils # (test code 0.2 See_Comment [Aut omated message] The = Basophils #) system which generated this result tra nsmitted reference range : <=0.2. The reference r bret was not used to int erpret this result as normal/abnormal . [facility] HospitalCizgunsVTFJZBNIQD9372-60-18 18:34:00 Test Item Value Reference Range Interpretation Comments Lymphocytes (test code = Lymphocytes) 11.4 20.0-40.0 [facility] HospitalXqeshopIYWVNKOZLV0880-15-51 18:34:00 Test Item Value Reference Range Interpretation Comments Monocytes (test code = Monocytes) 4.4 2.0-12.0 [facility] HospitalTeslwijOIXHOKKXZF8893-05-34 18:34:00 Test Item Value Reference Range Interpretation Comments Neutrophils # (test code = Neutrophils 11.1 1.5-8.1 #) [facility] HospitalJbmtqioTDLSXJRSPI6726-31-89 18:34:00 Test Item Value Reference Range Interpretation Comments Lymphocytes # (test code = Lymphocytes 1.5 1.0-5.5 #) [facility] HospitalBjayciuICRVFEHSOG0634-06-70 18:34:00 Test Item Value Reference Range Interpretation Comments Eosinophils # (test code 0.1 See_Comment [A utomated message] The = Eosinophils #) system whic h generated this result tra nsmitted reference range : <=0.5. The reference r bret was not used to int erpret this result as normal/abnormal . [facility] HospitalLiwipvcXRJBDTYFOT6200-48-82 18:34:00 Test Item Value Reference Range Interpretation Comments Monocytes # (test code 0.6 See_Comment [Aut omated message] The = Monocytes #) system which generated this result tra nsmitted reference range : <=0.8. The reference r bret was not used to int erpret this result as normal/abnormal . [facility] HospitalQwdsvhsWNIREQKUVW0929-95-98 18:34:00 Test Item Value Reference Range Interpretation Comments Eosinophils (test code = 0.9 See_Comment [A utomated message] The Eosinophils) system which ge nerated this result tra nsmitted reference range : <=4.0. The reference r bret was not used to int erpret this result as normal/abnormal . [facility] AntonioOajsjrxWDITOPMDGW9806-58-51 18:34:00 Test Item Value Reference Range Interpretation Comments Basophils (test code = 1.5 See_Comment [Aut omated message] The Basophils) system which ge nerated this result tra nsmitted reference range : <=1.0. The reference r bret was not used to int erpret this result as normal/abnormal . [facility] AntonioQardkuiVRXFXATYQP7102-01-59 18:34:00 Test Item Value Reference Range Interpretation Comments Segs (test code = Segs) 81.8 45.0-75.0 [facility] [employer].comCARDIAC DPMJEVQ1034-20-86 18:34:00 Test Item Value Reference Range Interpretation Comments Total CK (test code = Total CK) 105 12-191 [facility] [employer] [id number] 18:34:00 Test Item Value Reference Range Interpretation Comments Globulin (test code = Globulin) 5.2 2.7-4.2 [facility] [employer] [id number] 18:34:00 Test Item Value Reference Range Interpretation Comments A/G Ratio (test code = A/G Ratio) 0.8 1 0.7-1.6 [facility] [employer] [id number] 18:34:00 Test Item Value Reference Range Interpretation Comments Albumin Lvl (test code = Albumin Lvl) 4.4 3.5-5.0 [facility] [employer] [id number] 18:34:00 Test Item Value Reference Range Interpretation Comments Total Protein (test code = Total 9.6 6.4-8.4 Protein) [facility] [employer] [id number] 18:34:00 Test Item Value Reference Range Interpretation Comments Bili Direct (test code 0.1 See_Comment [Aut omated message] The = Bili Direct) system which generated this result tra nsmitted reference range : <=0.3. The reference r bret was not used to int erpret this result as mateo l/abnormal. [facility] [employer] [id number] 18:34:00 Test Item Value Reference Range Interpretation Comments Bili Total (test code = Bili Total) 0.6 0.2-1.3 [facility] [employer] [id number] 18:34:00 Test Item Value Reference Range Interpretation Comments Bili Indirect (test 0.5 See_Comment [Automa jw message] The code = Bili Indirect) system which generated this result tra nsmitted reference range : <=1.0. The reference r bret was not used to int erpret this result as normal/abnormal . [facility] [id number] 18:34:00 Test Item Value Reference Range Interpretation Comments AST (test code = AST) 23 See_Comment [Auto mated message] The system which ge nerated this result transmit jw reference range : <=37. The reference range was not used to interpr et this result as mateo l/abnormal. [facility] JBJSJ6035-75-10 18:34:00 Test Item Value Reference Range Interpretation Comments ALT (test code = ALT) 23 See_Comment [Auto mated message] The system which ge nerated this result transmit jw reference range : <=65. The reference range was not used to interpr et this result as mateo l/abnormal. [facility] [id number] 18:34:00 Test Item Value Reference Range Interpretation Comments Alk Phos (test code = Alk Phos) 161 39-136 [facility] [id number] 18:34:00 Test Item Value Reference Range Interpretation Comments Lipase Lvl (test code = Lipase Lvl) 202 73-393 [facility] [id number] 18:34:00 Test Item Value Reference Range Interpretation Comments Lactic Acid WB (test code = Lactic Acid 2.5 0.5-2.2 WB) [facility]oaidnbEQQZVBCHUCZC7978[facility]16-[facility] 18:34:00 Test Item Value Reference Range Interpretation Comments AGAP (test code = AGAP) 17.3 10.0-20.0 [facility] HospitalGpvcdmpNWDJVOAKXHKO9686-54-08 18:34:00 Test Item Value Reference Range Interpretation Comments Calcium Lvl (test code = Calcium Lvl) 9.9 8.5-10.5 [facility] HospitalDdrsbmkGKIZRVSQPGHE2055-72-27 18:34:00 Test Item Value Reference Range Interpretation Comments Chloride Lvl (test code = Chloride Lvl) 93 95-109 [facility] HospitalUbawpifFATPUGBIRZBO8926-04-93 18:34:00 Test Item Value Reference Range Interpretation Comments CO2 (test code = CO2) 26 24-32 [facility]YhjxybhIEYNGDAJRLYK1170-16-16 18:34:00 Test Item Value Reference Range Interpretation Comments Sodium Lvl (test code = Sodium Lvl) 132 135-145 [facility] HospitalRrbkapbRXUKGJGAQOZD4173-29-56 18:34:00 Test Item Value Reference Range Interpretation Comments Potassium Lvl (test code = Potassium 4.3 3.5-5.1 Lvl) [facility] HospitalKbulxoqEEEAMHYUDEOF9647-19-40 18:34:00 Test Item Value Reference Range Interpretation Comments BUN (test code = BUN) 18 7-22 [facility] HospitalHrxauglWOJZHUZAJQOQ6604-41-61 18:34:00 Test Item Value Reference Range Interpretation Comments Glucose Lvl (test code = Glucose Lvl) 133 70-99 [facility] HospitalNstsaraOJJQWYUBEAJP7233-68-09 18:34:00 Test Item Value Reference Range Interpretation Comments Creatinine Lvl (test code = Creatinine 0.99 0.50-1.40 Lvl) [facility] HospitalKyxmnlzFGTLKQKEAV2674-63-06 18:34:00 Test Item Value Reference Range Interpretation Comments Hct (test code = Hct) 40.9 42.0-54.0 [facility] HospitalSwskmmhCJRUPTSKCZ1733-17-20 18:34:00 Test Item Value Reference Range Interpretation Comments WBC (test code = WBC) 13.5 3.7-10.4 [facility] HospitalXrtfounNMVNVPKEFU8792-89-24 18:34:00 Test Item Value Reference Range Interpretation Comments RBC (test code = RBC) 4.91 4.70-6.10 [facility] HospitalJysilaeNJDMKAUOHP9823-97-26 18:34:00 Test Item Value Reference Range Interpretation Comments Hgb (test code = Hgb) 13.5 14.0-18.0 [facility] HospitalLogzpyrFOHRAZDQIW5615-88-50 18:34:00 Test Item Value Reference Range Interpretation Comments MCV (test code = MCV) 83.4 80.0-94.0 [facility] HospitalMnbfpkoPCYHQYQLLQ2687-39-22 18:34:00 Test Item Value Reference Range Interpretation Comments MCH (test code = MCH) 27.5 pg 27.0-31.0 [facility] HospitalQuxeebiIVTVIBKFPX3416-55-82 18:34:00 Test Item Value Reference Range Interpretation Comments RDW (test code = RDW) 18.2 11.5-14.5 [facility] HospitalQmjpqfjFAWXTXJVUR3820-59-91 18:34:00 Test Item Value Reference Range Interpretation Comments MCHC (test code = MCHC) 33.0 32.0-36.0 [facility] HospitalAqruwrxKBXYWHUEYU5951-22-63 18:34:00 Test Item Value Reference Range Interpretation Comments Platelet (test code = Platelet) 216 133-450 [facility] HospitalFvnjdwuZDJHWBGVHH5126-98-68 18:34:00 Test Item Value Reference Range Interpretation Comments MPV (test code = MPV) 8.5 7.4-10.4 [facility] HospitalFfwczixGFOXJYBWCS6721-01-98 18:34:00 Test Item Value Reference Range Interpretation Comments PTT (test code = PTT) 31.5 s 22.9-35.8 [facility] HospitalTuugppbCRGFJJFXVL9692-57-56 18:34:00 Test Item Value Reference Range Interpretation Comments PT (test code = PT) 13.2 s 12.0-14.7 [facility] HospitalYknwrgiXAOHIBKMNB3388-88-11 18:34:00 Test Item Value Reference Range Interpretation Comments INR (test code = INR) 1.00 1 0.85-1.17 [facility] HospitalXwsjbpmZGPCIUIVRZ4553-65-22 18:34:00 Test Item Value Reference Range Interpretation Comments Basophils # (test code 0.2 See_Comment [Aut omated message] The = Basophils #) system which generated this result tra nsmitted reference range : <=0.2. The reference r bret was not used to int erpret this result as normal/abnormal . [facility] HospitalUsfjkocJFJQGCWCPL0206-37-67 18:34:00 Test Item Value Reference Range Interpretation Comments Lymphocytes (test code = Lymphocytes) 11.4 20.0-40.0 [facility] HospitalAwhymxfMCIPWXYHUO9409-79-49 18:34:00 Test Item Value Reference Range Interpretation Comments Monocytes (test code = Monocytes) 4.4 2.0-12.0 [facility] HospitalCgrrlvwFBPEMVUXOR2950-38-50 18:34:00 Test Item Value Reference Range Interpretation Comments Neutrophils # (test code = Neutrophils 11.1 1.5-8.1 #) [facility] HospitalEvddjroXIMOSAMGHU0071-12-92 18:34:00 Test Item Value Reference Range Interpretation Comments Lymphocytes # (test code = Lymphocytes 1.5 1.0-5.5 #) [facility] HospitalSqkweteXZHTGGPSNE1705-09-60 18:34:00 Test Item Value Reference Range Interpretation Comments Eosinophils # (test code 0.1 See_Comment [A utomated message] The = Eosinophils #) system whic h generated this result tra nsmitted reference range : <=0.5. The reference r bret was not used to int erpret this result as normal/abnormal . [facility] HospitalAuxzzbyRMNCKMBVBT8837-94-16 18:34:00 Test Item Value Reference Range Interpretation Comments Monocytes # (test code 0.6 See_Comment [Aut omated message] The = Monocytes #) system which generated this result tra nsmitted reference range : <=0.8. The reference r bret was not used to int erpret this result as normal/abnormal . [facility] HospitalJzcqkmlDWBFSAKHFI1783-98-84 18:34:00 Test Item Value Reference Range Interpretation Comments Eosinophils (test code = 0.9 See_Comment [A utomated message] The Eosinophils) system which ge nerated this result tra nsmitted reference range : <=4.0. The reference r bret was not used to int erpret this result as normal/abnormal . [facility] HospitalAhlnvvgXUSHBKKTYF6934-38-90 18:34:00 Test Item Value Reference Range Interpretation Comments Basophils (test code = 1.5 See_Comment [Aut omated message] The Basophils) system which ge nerated this result tra nsmitted reference range : <=1.0. The reference r bret was not used to int erpret this result as normal/abnormal . [facility] HospitalPcbfqrxLUNOAQZQIN8810-57-95 18:34:00 Test Item Value Reference Range Interpretation Comments Segs (test code = Segs) 81.8 45.0-75.0 [facility] XHVMYSX4881-15-69 18:34:00 Test Item Value Reference Range Interpretation Comments Total CK (test code = Total CK) 105 12-191 [facility] [id number] 18:34:00 Test Item Value Reference Range Interpretation Comments Globulin (test code = Globulin) 5.2 2.7-4.2 [facility] [id number] 18:34:00 Test Item Value Reference Range Interpretation Comments A/G Ratio (test code = A/G Ratio) 0.8 1 0.7-1.6 [facility] [id number] 18:34:00 Test Item Value Reference Range Interpretation Comments Albumin Lvl (test code = Albumin Lvl) 4.4 3.5-5.0 [facility]2018-10-23 18:34:00 Test Item Value Reference Range Interpretation Comments Total Protein (test code = Total 9.6 6.4-8.4 Protein) [place] 884068-10-23 18:34:00 Test Item Value Reference Range Interpretation Comments Bili Direct (test code 0.1 See_Comment [Aut omated message] The = Bili Direct) system which generated this result tra nsmitted reference range : <=0.3. The reference r bret was not used to int erpret this result as mateo l/abnormal. [place] 884068-10-23 18:34:00 Test Item Value Reference Range Interpretation Comments Bili Total (test code = Bili Total) 0.6 0.2-1.3 [place] [id number] 18:34:00 Test Item Value Reference Range Interpretation Comments Bili Indirect (test 0.5 See_Comment [Automa jw message] The code = Bili Indirect) system which generated this result tra nsmitted reference range : <=1.0. The reference r bret was not used to int erpret this result as normal/abnormal . [facility]2018-10-23 18:34:00 Test Item Value Reference Range Interpretation Comments AST (test code = AST) 23 See_Comment [Auto mated message] The system which ge nerated this result transmit jw reference range : <=37. The reference range was not used to interpr et this result as mateo l/abnormal. [place] 884068-10-23 18:34:00 Test Item Value Reference Range Interpretation Comments ALT (test code = ALT) 23 See_Comment [Auto mated message] The system which ge nerated this result transmit jw reference range : <=65. The reference range was not used to interpr et this result as mateo l/abnormal. [facility]2018-10-23 18:34:00 Test Item Value Reference Range Interpretation Comments Alk Phos (test code = Alk Phos) 161 39-136 [place] 884068-10-23 18:34:00 Test Item Value Reference Range Interpretation Comments Lipase Lvl (test code = Lipase Lvl) 202 73-393 [facility]2018-10-23 18:34:00 Test Item Value Reference Range Interpretation Comments Lactic Acid WB (test code = Lactic Acid 2.5 0.5-2.2 WB) [facility]ZuqsvunLRXNRTDUVUJS9012-11-62 18:34:00 Test Item Value Reference Range Interpretation Comments AGAP (test code = AGAP) 17.3 10.0-20.0 [facility] HospitalBbsdqbbGHOXZDGPRWHU0280-37-86 18:34:00 Test Item Value Reference Range Interpretation Comments Calcium Lvl (test code = Calcium Lvl) 9.9 8.5-10.5 [facility] HospitalWkruxfwZYOJEUASAWJU6796-74-31 18:34:00 Test Item Value Reference Range Interpretation Comments Chloride Lvl (test code = Chloride Lvl) 93 95-109 [facility]MnvkukyZVZYNZWEAORN6301-03-61 18:34:00 Test Item Value Reference Range Interpretation Comments CO2 (test code = CO2) 26 24-32 [facility]OltbfhrWEBBOIQLNGLC4114-64-03 18:34:00 Test Item Value Reference Range Interpretation Comments Sodium Lvl (test code = Sodium Lvl) 132 135-145 [facility] HospitalWnrtntjMFPRBBCATCFY6155-40-65 18:34:00 Test Item Value Reference Range Interpretation Comments Potassium Lvl (test code = Potassium 4.3 3.5-5.1 Lvl) [facility] HospitalDinhpjbNVAGEZUNNOLK0710-39-63 18:34:00 Test Item Value Reference Range Interpretation Comments BUN (test code = BUN) 18 7-22 [facility] HospitalBwlxkntPGUKGIEDBKHC9731-21-70 18:34:00 Test Item Value Reference Range Interpretation Comments Glucose Lvl (test code = Glucose Lvl) 133 70-99 [facility] HospitalClmqdcoXDRFDBVISDGB1399-48-58 18:34:00 Test Item Value Reference Range Interpretation Comments Creatinine Lvl (test code = Creatinine 0.99 0.50-1.40 Lvl) [facility] HospitalQenuasdSELOUTRSIV6856-26-03 18:34:00 Test Item Value Reference Range Interpretation Comments Hct (test code = Hct) 40.9 42.0-54.0 [facility] HospitalWgmupngDFQFDTFAFN2009-37-22 18:34:00 Test Item Value Reference Range Interpretation Comments WBC (test code = WBC) 13.5 3.7-10.4 [facility] HospitalSuppomwUFSOGRSCMR8119-48-21 18:34:00 Test Item Value Reference Range Interpretation Comments RBC (test code = RBC) 4.91 4.70-6.10 [facility] HospitalNdzyjsqUXCYDWHYDI1689-78-63 18:34:00 Test Item Value Reference Range Interpretation Comments Hgb (test code = Hgb) 13.5 14.0-18.0 [facility] HospitalWuxyjxtLPIWBOZERS3794-36-39 18:34:00 Test Item Value Reference Range Interpretation Comments MCV (test code = MCV) 83.4 80.0-94.0 [facility] HospitalFxaxghdITNTSMAFMB3114-84-28 18:34:00 Test Item Value Reference Range Interpretation Comments MCH (test code = MCH) 27.5 pg 27.0-31.0 [facility] HospitalBoiwhepYYTAVFUVGQ0649-62-49 18:34:00 Test Item Value Reference Range Interpretation Comments RDW (test code = RDW) 18.2 11.5-14.5 [facility] HospitalSijomvaONQYXQGFKN8219-08-87 18:34:00 Test Item Value Reference Range Interpretation Comments MCHC (test code = MCHC) 33.0 32.0-36.0 [facility] HospitalGmzpvawPZWAFCUYBP7932-33-04 18:34:00 Test Item Value Reference Range Interpretation Comments Platelet (test code = Platelet) 216 133-450 [facility] HospitalJgosemjHINVXWLEWB6976-73-21 18:34:00 Test Item Value Reference Range Interpretation Comments MPV (test code = MPV) 8.5 7.4-10.4 [facility] HospitalEfpfvpdIDYWPMCRMY1180-33-40 18:34:00 Test Item Value Reference Range Interpretation Comments PTT (test code = PTT) 31.5 s 22.9-35.8 [facility] HospitalEkponpwMAITDWRDAC8304-66-37 18:34:00 Test Item Value Reference Range Interpretation Comments PT (test code = PT) 13.2 s 12.0-14.7 [facility] HospitalUubguvsKZZTQQASWR0123-05-27 18:34:00 Test Item Value Reference Range Interpretation Comments INR (test code = INR) 1.00 1 0.85-1.17 [facility] HospitalFneqvtvKFGJXYUMNJ1794-05-99 18:34:00 Test Item Value Reference Range Interpretation Comments Basophils # (test code 0.2 See_Comment [Aut omated message] The = Basophils #) system which generated this result tra nsmitted reference range : <=0.2. The reference r bret was not used to int erpret this result as normal/abnormal . [facility] HospitalFeutasdQFBRCUCYXN8049-29-75 18:34:00 Test Item Value Reference Range Interpretation Comments Lymphocytes (test code = Lymphocytes) 11.4 20.0-40.0 [facility] HospitalPqagcleCFXQQPKDDE3024-37-11 18:34:00 Test Item Value Reference Range Interpretation Comments Monocytes (test code = Monocytes) 4.4 2.0-12.0 [facility] HospitalNzanlvgJXTLWBVBJP4777-01-95 18:34:00 Test Item Value Reference Range Interpretation Comments Neutrophils # (test code = Neutrophils 11.1 1.5-8.1 #) [facility] HospitalUwxmzrwCPBVYVOKJG1853-39-30 18:34:00 Test Item Value Reference Range Interpretation Comments Lymphocytes # (test code = Lymphocytes 1.5 1.0-5.5 #) [facility] HospitalPvvygdbAXNSPVNYQN1582-61-26 18:34:00 Test Item Value Reference Range Interpretation Comments Eosinophils # (test code 0.1 See_Comment [A utomated message] The = Eosinophils #) system [facility] generated this result tra nsmitted reference range : <=0.5. The reference r bret was not used to int erpret this result as normal/abnormal . [facility] HospitalTtlyfsiCSWYFFPBIO3174-69-12 18:34:00 Test Item Value Reference Range Interpretation Comments Monocytes # (test code 0.6 See_Comment [Aut omated message] The = Monocytes #) system which generated this result tra nsmitted reference range : <=0.8. The reference r bret was not used to int erpret this result as normal/abnormal . [facility] HospitalDqcowthBEOTRICAKK7773-21-81 18:34:00 Test Item Value Reference Range Interpretation Comments Eosinophils (test code = 0.9 See_Comment [A utomated message] The Eosinophils) system which ge nerated this result tra nsmitted reference range : <=4.0. The reference r bret was not used to int erpret this result as normal/abnormal . [facility] HospitalEoropuiLLJKGVYILQ7795-09-66 18:34:00 Test Item Value Reference Range Interpretation Comments Basophils (test code = 1.5 See_Comment [Aut omated message] The Basophils) system which ge nerated this result tra nsmitted reference range : <=1.0. The reference r bret was not used to int erpret this result as normal/abnormal . [place] 055038-10-23 18:34:00 Test Item Value Reference Range Interpretation Comments Segs (test code = Segs) 81.8 45.0-75.0 [facility] CFKFELA4650-48-64 18:34:00 Test Item Value Reference Range Interpretation Comments Total CK (test code = Total CK) 105 12-191 [facility] BVHBH7170-78-29 18:34:00 Test Item Value Reference Range Interpretation Comments Globulin (test code = Globulin) 5.2 2.7-4.2 [facility]2018-10-23 18:34:00 Test Item Value Reference Range Interpretation Comments A/G Ratio (test code = A/G Ratio) 0.8 1 0.7-1.6 [facility]2018-10-23 18:34:00 Test Item Value Reference Range Interpretation Comments Albumin Lvl (test code = Albumin Lvl) 4.4 3.5-5.0 [facility]2018-10-23 18:34:00 Test Item Value Reference Range Interpretation Comments Total Protein (test code = Total 9.6 6.4-8.4 Protein) [facility]2018-10-23 18:34:00 Test Item Value Reference Range Interpretation Comments Bili Direct (test code 0.1 See_Comment [Aut omated message] The = Bili Direct) system which generated this result tra nsmitted reference range : <=0.3. The reference r bret was not used to int erpret this result as mateo l/abnormal. [facility] [id number] 18:34:00 Test Item Value Reference Range Interpretation Comments Bili Total (test code = Bili Total) 0.6 0.2-1.3 [facility]2018-10-23 18:34:00 Test Item Value Reference Range Interpretation Comments Bili Indirect (test 0.5 See_Comment [Automa jw message] The code = Bili Indirect) system which generated this result tra nsmitted reference range : <=1.0. The reference r bret was not used to int erpret this result as normal/abnormal . [facility] [id number] 18:34:00 Test Item Value Reference Range Interpretation Comments AST (test code = AST) 23 See_Comment [Auto mated message] The system which ge nerated this result transmit jw reference range : <=37. The reference range was not used to interpr et this result as mateo l/abnormal. [facility] [id number] 18:34:00 Test Item Value Reference Range Interpretation Comments ALT (test code = ALT) 23 See_Comment [Auto mated message] The system which ge nerated this result transmit jw reference range : <=65. The reference range was not used to interpr et this result as mateo l/abnormal. [facility]2018-10-23 18:34:00 Test Item Value Reference Range Interpretation Comments Alk Phos (test code = Alk Phos) 161 39-136 [facility]2018-10-23 18:34:00 Test Item Value Reference Range Interpretation Comments Lipase Lvl (test code = Lipase Lvl) 202 73-393 [facility] [id number] 18:34:00 Test Item Value Reference Range Interpretation Comments Lactic Acid WB (test code = Lactic Acid 2.5 0.5-2.2 WB) [facility]FnxnnyvWEYYTLKVAUXN3927-12-90 18:34:00 Test Item Value Reference Range Interpretation Comments AGAP (test code = AGAP) 17.3 10.0-20.0 [facility]HjabzhqTSVPEMNRJNVC9836-55-04 18:34:00 Test Item Value Reference Range Interpretation Comments Calcium Lvl (test code = Calcium Lvl) 9.9 8.5-10.5 [facility] HospitalRxsulgoHMQFRCCKYYRN3223-54-43 18:34:00 Test Item Value Reference Range Interpretation Comments Chloride Lvl (test code = Chloride Lvl) 93 95-109 [facility]XrzgnaqQGWUHQQTVSHN5018-38-96 18:34:00 Test Item Value Reference Range Interpretation Comments CO2 (test code = CO2) 26 24-32 [facility]SrdoibjNYCSTIKHCZGP0680-42-33 18:34:00 Test Item Value Reference Range Interpretation Comments Sodium Lvl (test code = Sodium Lvl) 132 135-145 [facility]PcfuhsuKKXBZRRYYNIP3468-43-69 18:34:00 Test Item Value Reference Range Interpretation Comments Potassium Lvl (test code = Potassium 4.3 3.5-5.1 Lvl) [facility] HospitalVqnjjdzXQRGIUDCMSLR3342-28-29 18:34:00 Test Item Value Reference Range Interpretation Comments BUN (test code = BUN) 18 7-22 [facility]DdgqvmkHNPIKABJRDAS9965-56-12 18:34:00 Test Item Value Reference Range Interpretation Comments Glucose Lvl (test code = Glucose Lvl) 133 70-99 [facility]FjcvhtoEHEAJSIQQUMC8940-41-18 18:34:00 Test Item Value Reference Range Interpretation Comments Creatinine Lvl (test code = Creatinine 0.99 0.50-1.40 Lvl) [facility]ip[facility]udXMPASCMRRG9415-60-84 18:34:00 Test Item Value Reference Range Interpretation Comments Hct (test code = Hct) 40.9 42.0-54.0 [facility] HospitalKeoppshZJPUOXBZZT2047-24-92 18:34:00 Test Item Value Reference Range Interpretation Comments WBC (test code = WBC) 13.5 3.7-10.4 [facility] HospitalCwdkdwzLIYDGYQSVS9798-66-11 18:34:00 Test Item Value Reference Range Interpretation Comments RBC (test code = RBC) 4.91 4.70-6.10 [facility] HospitalUntpdnwNOKBOULTMR6311-20-17 18:34:00 Test Item Value Reference Range Interpretation Comments Hgb (test code = Hgb) 13.5 14.0-18.0 [facility] HospitalFfmbtzbDAVEJJCIQV6759-24-52 18:34:00 Test Item Value Reference Range Interpretation Comments MCV (test code = MCV) 83.4 80.0-94.0 [facility] HospitalHxavovgDUVPXAEMGM9247-22-02 18:34:00 Test Item Value Reference Range Interpretation Comments MCH (test code = MCH) 27.5 pg 27.0-31.0 [facility] HospitalIircwmjPEVGBMCQHU7435-00-29 18:34:00 Test Item Value Reference Range Interpretation Comments RDW (test code = RDW) 18.2 11.5-14.5 [facility] HospitalPuydxhuIDKCWLJRLL2988-17-91 18:34:00 Test Item Value Reference Range Interpretation Comments MCHC (test code = MCHC) 33.0 32.0-36.0 [facility] HospitalKaqntwsCQZJOZXFDK9134-72-51 18:34:00 Test Item Value Reference Range Interpretation Comments Platelet (test code = Platelet) 216 133-450 [facility] HospitalLwyowkzCQVFBRKNHI1130-27-86 18:34:00 Test Item Value Reference Range Interpretation Comments MPV (test code = MPV) 8.5 7.4-10.4 [facility] HospitalGualxlbHKKEOEHECQ8066-37-40 18:34:00 Test Item Value Reference Range Interpretation Comments PTT (test code = PTT) 31.5 s 22.9-35.8 [facility] HospitalHuoklbwALJVGZQBWK3001-02-46 18:34:00 Test Item Value Reference Range Interpretation Comments PT (test code = PT) 13.2 s 12.0-14.7 [place] [id number] 18:34:00 Test Item Value Reference Range Interpretation Comments INR (test code = INR) 1.00 1 0.85-1.17 [place] [id number] 18:34:00 Test Item Value Reference Range Interpretation Comments Basophils # (test code 0.2 See_Comment [Aut omated message] The = Basophils #) system which generated this result tra nsmitted reference range : <=0.2. The reference r bret was not used to int erpret this result as normal/abnormal . [facility] HospitalZqoftbvWYNDNGOJSG1799-87-55 18:34:00 Test Item Value Reference Range Interpretation Comments Lymphocytes (test code = Lymphocytes) 11.4 20.0-40.0 [facility] HospitalZsjwngdOBOAGGLKSA9221-37-88 18:34:00 Test Item Value Reference Range Interpretation Comments Monocytes (test code = Monocytes) 4.4 2.0-12.0 [facility] HospitalVrbryjcDCKAWNBMNR2542-69-44 18:34:00 Test Item Value Reference Range Interpretation Comments Neutrophils # (test code = Neutrophils 11.1 1.5-8.1 #) [facility] HospitalVvxguzdTNTTXJJDWD7141-06-16 18:34:00 Test Item Value Reference Range Interpretation Comments Lymphocytes # (test code = Lymphocytes 1.5 1.0-5.5 #) [facility] HospitalNckvddwVXVASEIHVD8952-96-36 18:34:00 Test Item Value Reference Range Interpretation Comments Eosinophils # (test code 0.1 See_Comment [A utomated message] The = Eosinophils #) system whic h generated this result tra nsmitted reference range : <=0.5. The reference r bret was not used to int erpret this result as normal/abnormal . [facility] HospitalGqqmlgzQISBLBRUQW5643-50-83 18:34:00 Test Item Value Reference Range Interpretation Comments Monocytes # (test code 0.6 See_Comment [Aut omated message] The = Monocytes #) system which generated this result tra nsmitted reference range : <=0.8. The reference r bret was not used to int erpret this result as normal/abnormal . [facility] HospitalXzjvsorUWNDKUMAUV6862-42-28 18:34:00 Test Item Value Reference Range Interpretation Comments Eosinophils (test code = 0.9 See_Comment [A utomated message] The Eosinophils) system which ge nerated this result tra nsmitted reference range : <=4.0. The reference r bret was not used to int erpret this result as normal/abnormal . [facility] HospitalPvclcxuUSTBOFOGMH5895-29-99 18:34:00 Test Item Value Reference Range Interpretation Comments Basophils (test code = 1.5 See_Comment [Aut omated message] The Basophils) system which ge nerated this result tra nsmitted reference range : <=1.0. The reference r bret was not used to int erpret this result as normal/abnormal . [facility] HospitalKkvdofgTBVUGQBNLA7960-24-99 18:34:00 Test Item Value Reference Range Interpretation Comments Segs (test code = Segs) 81.8 45.0-75.0 [facility] [id number] 18:34:00 Test Item Value Reference Range Interpretation Comments Total CK (test code = Total CK) 105 12-191 [facility] [id number] 18:34:00 Test Item Value Reference Range Interpretation Comments Globulin (test code = Globulin) 5.2 2.7-4.2 [facility] [id number] 18:34:00 Test Item Value Reference Range Interpretation Comments A/G Ratio (test code = A/G Ratio) 0.8 1 0.7-1.6 [facility] [id number] 18:34:00 Test Item Value Reference Range Interpretation Comments Albumin Lvl (test code = Albumin Lvl) 4.4 3.5-5.0 [facility] [id number] 18:34:00 Test Item Value Reference Range Interpretation Comments Total Protein (test code = Total 9.6 6.4-8.4 Protein) [facility] [id number] 18:34:00 Test Item Value Reference Range Interpretation Comments Bili Direct (test code 0.1 See_Comment [Aut omated message] The = Bili Direct) system which generated this result tra nsmitted reference range : <=0.3. The reference r bret was not used to int erpret this result as mateo l/abnormal. [facility]2018-10-23 18:34:00 Test Item Value Reference Range Interpretation Comments Bili Total (test code = Bili Total) 0.6 0.2-1.3 [place] [id number] 18:34:00 Test Item Value Reference Range Interpretation Comments Bili Indirect (test 0.5 See_Comment [Automa jw message] The code = Bili Indirect) system which generated this result tra nsmitted reference range : <=1.0. The reference r bret was not used to int erpret this result as normal/abnormal . [place] [id number] 18:34:00 Test Item Value Reference Range Interpretation Comments AST (test code = AST) 23 See_Comment [Auto mated message] The system which ge nerated this result transmit jw reference range : <=37. The reference range was not used to interpr et this result as mateo l/abnormal. [facility]2018-10-23 18:34:00 Test Item Value Reference Range Interpretation Comments ALT (test code = ALT) 23 See_Comment [Auto mated message] The system which ge nerated this result transmit jw reference range : <=65. The reference range was not used to interpr et this result as mateo l/abnormal. [facility]2018-10-23 18:34:00 Test Item Value Reference Range Interpretation Comments Alk Phos (test code = Alk Phos) 161 39-136 [facility]2018-10-23 18:34:00 Test Item Value Reference Range Interpretation Comments Lipase Lvl (test code = Lipase Lvl) 202 73-393 [facility]2018-10-23 18:34:00 Test Item Value Reference Range Interpretation Comments Lactic Acid WB (test code = Lactic Acid 2.5 0.5-2.2 WB) [facility] HospitalTdoorvaHJTYUEXGADLG3109-86-38 18:34:00 Test Item Value Reference Range Interpretation Comments AGAP (test code = AGAP) 17.3 10.0-20.0 [place] [id number] 18:34:00 Test Item Value Reference Range Interpretation Comments Calcium Lvl (test code = Calcium Lvl) 9.9 8.5-10.5 [facility] HospitalWplhoyfFSYPRLSDHWEH5533-43-37 18:34:00 Test Item Value Reference Range Interpretation Comments Chloride Lvl (test code = Chloride Lvl) 93 95-109 [facility] HospitalKccvvsmGKQJEDWOIITZ6234-85-56 18:34:00 Test Item Value Reference Range Interpretation Comments CO2 (test code = CO2) 26 24-32 [facility] HospitalSapufbpZZJKJDUDSKYH1071-82-82 18:34:00 Test Item Value Reference Range Interpretation Comments Sodium Lvl (test code = Sodium Lvl) 132 135-145 [facility]OfdapjcQRCLXRAMDJPU3996-49-80 18:34:00 Test Item Value Reference Range Interpretation Comments Potassium Lvl (test code = Potassium 4.3 3.5-5.1 Lvl) [facility] HospitalIvnbwbhBKDORJQQOOXW9142-78-48 18:34:00 Test Item Value Reference Range Interpretation Comments BUN (test code = BUN) 18 7-22 [facility]EjbjceqETXXDMGUEQOU1867-74-69 18:34:00 Test Item Value Reference Range Interpretation Comments Glucose Lvl (test code = Glucose Lvl) 133 70-99 [facility] HospitalOddbayjCCTPHFJZYEHS0806-93-47 18:34:00 Test Item Value Reference Range Interpretation Comments Creatinine Lvl (test code = Creatinine 0.99 0.50-1.40 Lvl) [facility] HospitalXuaoyaqLGJOHMAVLM8415-09-15 18:34:00 Test Item Value Reference Range Interpretation Comments Hct (test code = Hct) 40.9 42.0-54.0 [facility] HospitalQatzcnjCIEIDZOZBU9326-23-30 18:34:00 Test Item Value Reference Range Interpretation Comments WBC (test code = WBC) 13.5 3.7-10.4 [facility] HospitalWobmmvrCMHKZRKUMG3565-86-21 18:34:00 Test Item Value Reference Range Interpretation Comments RBC (test code = RBC) 4.91 4.70-6.10 [facility] HospitalEkexbpnUEPQGJZWHQ3855-37-13 18:34:00 Test Item Value Reference Range Interpretation Comments Hgb (test code = Hgb) 13.5 14.0-18.0 [facility] HospitalAurkoyuPBSXUQQFBP3973-64-29 18:34:00 Test Item Value Reference Range Interpretation Comments MCV (test code = MCV) 83.4 80.0-94.0 [facility] HospitalVbnpxskPZRPVHIAIL9316-58-56 18:34:00 Test Item Value Reference Range Interpretation Comments MCH (test code = MCH) 27.5 pg 27.0-31.0 [facility] HospitalNtnkohxAUICYWWBJK3689-79-03 18:34:00 Test Item Value Reference Range Interpretation Comments RDW (test code = RDW) 18.2 11.5-14.5 [facility] HospitalKhxaeysKKXPTUBVLF2812-79-08 18:34:00 Test Item Value Reference Range Interpretation Comments MCHC (test code = MCHC) 33.0 32.0-36.0 [facility] HospitalOlvzfnkPTPWSEXLCL8206-65-94 18:34:00 Test Item Value Reference Range Interpretation Comments Platelet (test code = Platelet) 216 133-450 [facility] HospitalRhyzhhgNXUVJVLHHI8432-37-57 18:34:00 Test Item Value Reference Range Interpretation Comments MPV (test code = MPV) 8.5 7.4-10.4 [facility] HospitalMcqabwgJZMPCPJWKM8319-29-50 18:34:00 Test Item Value Reference Range Interpretation Comments PTT (test code = PTT) 31.5 s 22.9-35.8 [facility] HospitalIljlngaRCGTCMSYPX8111-71-36 18:34:00 Test Item Value Reference Range Interpretation Comments PT (test code = PT) 13.2 s 12.0-14.7 [facility] HospitalUcyubllFWRSUPJEBM6557-65-93 18:34:00 Test Item Value Reference Range Interpretation Comments INR (test code = INR) 1.00 1 0.85-1.17 [facility] HospitalHabgkszWPJYRBEHRD9334-17-27 18:34:00 Test Item Value Reference Range Interpretation Comments Basophils # (test code 0.2 See_Comment [Aut omated message] The = Basophils #) system which generated this result tra nsmitted reference range : <=0.2. The reference r bret was not used to int erpret this result as normal/abnormal . [facility] HospitalKtnrdefCAKPQKZWRB0673-51-72 18:34:00 Test Item Value Reference Range Interpretation Comments Lymphocytes (test code = Lymphocytes) 11.4 20.0-40.0 [facility] HospitalBgdhvnlQBAEVNTUJW6094-00-95 18:34:00 Test Item Value Reference Range Interpretation Comments Monocytes (test code = Monocytes) 4.4 2.0-12.0 [facility] HospitalZzpbwwcUHITVNUMOY8969-02-40 18:34:00 Test Item Value Reference Range Interpretation Comments Neutrophils # (test code = Neutrophils 11.1 1.5-8.1 #) [facility] HospitalLwokqnvBOJGCSMNUW2625-21-77 18:34:00 Test Item Value Reference Range Interpretation Comments Lymphocytes # (test code = Lymphocytes 1.5 1.0-5.5 #) [facility] HospitalWwzaadfLHSAWTKJPP2864-68-88 18:34:00 Test Item Value Reference Range Interpretation Comments Eosinophils # (test code 0.1 See_Comment [A utomated message] The = Eosinophils #) system whic h generated this result tra nsmitted reference range : <=0.5. The reference r bret was not used to int erpret this result as normal/abnormal . [facility] HospitalGckwbclCUJDCKDQCT9138-24-47 18:34:00 Test Item Value Reference Range Interpretation Comments Monocytes # (test code 0.6 See_Comment [Aut omated message] The = Monocytes #) system which generated this result tra nsmitted reference range : <=0.8. The reference r bret was not used to int erpret this result as normal/abnormal . [facility] HospitalAikeijfEKEMZYPKCA7973-57-38 18:34:00 Test Item Value Reference Range Interpretation Comments Eosinophils (test code = 0.9 See_Comment [A utomated message] The Eosinophils) system which ge nerated this result tra nsmitted reference range : <=4.0. The reference r bret was not used to int erpret this result as normal/abnormal . [facility] HospitalIvyyovgLDEUCKBQXA2718-40-95 18:34:00 Test Item Value Reference Range Interpretation Comments Basophils (test code = 1.5 See_Comment [Aut omated message] The Basophils) system which ge nerated this result tra nsmitted reference range : <=1.0. The reference r bret was not used to int erpret this result as normal/abnormal . [facility] HospitalPmwmeyoSMZYKRATWI4472-40-66 18:34:00 Test Item Value Reference Range Interpretation Comments Segs (test code = Segs) 81.8 45.0-75.0 [facility]/FREE T4 IF [id number] 04:03:00 Test Item Value Reference Range Interpretation Comments THYROID STIMULATING HORMONE 3.16 uIU/mL 0.35-4.94 (BEAKER) (test code = 772) BASIC METABOLIC [id number] 03:35:00 Test Item Value Reference Range Interpretation [...] PATIEN TS. CBC W/PLT COUNT & AUTO [id number] 03:24:00 Test Item Value Reference Range Interpretation [...] PERCENT (BEAKER) (test code = 2801) TROPONIN [id number] 20:57:00 Test Item Value Reference Range Interpretation [...] without contrast 12/01/2017 6:40 PM CLINICAL HISTORY: PosttPA TECHNIQUE: Contiguous axial images through the head without contrast were obtained utilizing theportable CT unit. This examination was performed according to our departmental dose optimization program, which includes automated exposure control, adjustment of the mA and/or kV according to patient size, and/or use of iterated reconstruction technique. COMPARISON: 03/12/2017 FINDINGS: There is rare chronic-appearing microvascular ischemia in the supratentorial white matter. There is atherosclerotic calcification of the intracranial arterial vasculature. There is generalized parenchymal volume loss.The paranasal sinuses and tympanomastoid cavities are well-aerated. The skull is intact. There are po stsurgical changes in the anterior left maxilla. IMPRESSION: No intracranial hemorrhage or mass effect. If concern for intracranial pathology persists, further evaluation with MRI is recommended. Signed: Fiona Quintanilla MDReport Verified Date/Time: 12/01/2017 18:41:06 Reading Location: [facility] Reading Room TROPONIN [id number] 17:00:00 Test Item Value Reference Range Interpretation [...] failure, acidosis, acute neurological disease, and persistent tachyarrhythmia.[id number] 16:23:00 Test Item Value Reference Range Interpretation Comments POTASSIUM (BEAKER) (test code = 3.7 meq/L 3.5-5.1 379) Check Serum Potassium level 2 hours after oral potassium replacement completed or 30 min after intravenous potassium replacement.[id number] 11:59:00 Test Item Value Reference Range Interpretation Comments MAGNESIUM (BEAKER) 2.2 mg/dL 1.6-2.6 Specimen slightly (test code = 627) hemolyzed [id number] 11:59:00 Test Item Value Reference Range Interpretation Comments PHOSPHORUS (BEAKER) 2.6 mg/dL 2.3-4.7 Specimen slightly (test code = 604) hemolyzed HEMOGLOBIN [id number] 11:49:00 Test Item Value Reference Range Interpretation Comments HEMOGLOBIN A1C (BEAKER) (test code = 6.0 % 4.3-6.1 368) TROPONIN [id number] 08:40:00 Test Item Value Reference Range Interpretation [...] acidosis, acute neurological disease, and persistent tachyarrhythmia.LIPID [id number] 04:39:00 Test Item Value Reference Range Interpretation [...] High 160-189 Very High >=190 FastingBASIC METABOLIC [id number] 04:39:00 Test Item Value Reference Range Interpretation [...] PATIEN TS. FastingCBC W/PLT COUNT & AUTO [id number] 04:25:00 Test Item Value Reference Range Interpretation [...] PERCENT (BEAKER) (test code = 2801) HEMOGLOBIN [id number] 22:29:00 Test Item Value Reference Range Interpretation Comments HEMOGLOBIN A1C (BEAKER) (test code = 5.9 % 4.3-6.1 368) VITAMIN B12 AND [id number] 18:47:00 Test Item Value Reference Range Interpretation Comments VITAMIN B12 (BEAKER) (test code = 1185 pg/mL 213-816 H 774) FOLATE (BEAKER) (test code = 362) 2.3 ng/mL >=7.0 L TROPONIN [id number] 18:18:00 Test Item Value Reference Range Interpretation [...] acute neurological disease, and persistent tachyarrhythmia.BASIC METABOLIC [id number] 18:10:00 Test Item Value Reference Range Interpretation [...] PATIEN TS. CBC W/PLT COUNT & AUTO [id number] 17:52:00 Test Item Value Reference Range Interpretation [...] (BEAKER) (test code = 2801) BASIC METABOLIC [id number] 07:51:00 Test Item Value Reference Range Interpretation [...] PATIEN TS. CBC W/PLT COUNT & AUTO [id number] 05:55:00 Test Item Value Reference Range Interpretation [...] = 2801) CBC W/PLT COUNT & AUTO [id number] 05:15:00 Test Item Value Reference Range Interpretation [...] (test code = 2801) CT, BRAIN, WITHOUT [id number] 15:31:00FINAL REPORT CT head without contrast 03/12/2017 [...] Quintanilla Verified Date/Time: 03/12/2017 15:31:17 Reading Location: [address] Neuro Reading Room TROPONIN [id number] 15:26:00 Test Item Value Reference Range Interpretation [...] acidosis, acute neurological disease, and persistent tachyarrhythmia.HEMOGLOBIN [id number] 12:38:00 Test Item Value Reference Range Interpretation Comments HEMOGLOBIN A1C (KYARA) (test code = 5.6 % 4.3-6.1 368) FastingRAD, CHEST, 1 VIEW, NON [id number] 10:06:00Reason for exam:->rule out pneumoniaShould this be [...] Benites Verified Date/Time: 03/12/2017 10:06:57 Reading Location: [facility] Radiology Reading Room [id number] 09:08:00 Test Item Value Reference Range Interpretation Comments HOMOCYSTEINE (BEAKER) (test code 11.8 umol/L 5.1-15.4 = 642) FastingCREATINE KINASE (CK), TOTAL AND [id number] 08:55:00 Test Item Value Reference Range Interpretation Comments CREATINE KINASE TOTAL (BEAKER) 59 U/L 29-200 (test code = 380) CREATINE KINASE-MB (BEAKER) (test 1.0 ng/mL 0.0-6.6 code = 750) CREATINE KINASE-MB INDEX (BEAKER) 1.7 % (test code = 395) CK-MB Reference Range:<6.7 Normal6.7-10.0 Borderline>10.0 AbnormalFastingFastingTROPONIN [id number] 08:55:00 Test Item Value Reference Range Interpretation [...] acidosis, acute neurological disease, and persistent tachyarrhythmia.FastingLIPID [id number] 08:48:00 Test Item Value Reference Range Interpretation [...] Borderline 130-159 High 160-189 Very High >=190 FastingBASI METABOLIC [id number] 08:48:00 Test Item Value Reference Range Interpretation [...] PATIEN TS. FastingCBC W/PLT COUNT & AUTO [id number] 08:24:00 Test Item Value Reference Range Interpretation [...] (test code = 2801) TSH/FREE T4 IF [id number] 03:38:00 Test Item Value Reference Range Interpretation Comments THYROID STIMULATING HORMONE 2.01 uIU/mL 0.35-4.94 (BEAKER) (test code = 772) VITAMIN B12 AND [id number] 03:38:00 Test Item Value Reference Range Interpretation Comments VITAMIN B12 (BEAKER) (test code = 1008 pg/mL 213-816 H 774) FOLATE (BEAKER) (test code = 362) 8.4 ng/mL >=7.0 CREATINE KINASE (CK), TOTAL AND [id number] 01:03:00 Test Item Value Reference Range Interpretation Comments CREATINE KINASE TOTAL (BEAKER) 66 U/L 29-200 (test code = 380) CREATINE KINASE-MB (BEAKER) (test 1.4 ng/mL 0.0-6.6 code = 750) CREATINE KINASE-MB INDEX (BEAKER) 2.1 % (test code = 395) CK-MB Reference Range:<6.7 Normal6.7-10.0 Borderline>10.0 AbnormalTROPONIN [id number] 01:03:00 Test Item Value Reference Range Interpretation [...] acute neurological disease, and persistent tachyarrhythmia.BASIC METABOLIC [id number] 00:56:00 Test Item Value Reference Range Interpretation [...] NOT APPLICABLE FOR DIALYSIS PATIEN TS. PROTHROMBIN TIME/[id number] 00:27:00 Test Item Value Reference Range Interpretation [...] mechanical heart valves.CBC W/PLT COUNT & AUTO [id number] 00:01:00 Test Item Value Reference Range Interpretation [...] % 0-1 PERCENT (BEAKER) (test code = 2800)
[2022-03-25] MEDS ORDERED: NA CHLORIDE 0.9% 1,000 ML ONE (20:11)
[2022-03-25] MEDS ORDERED: FOLIC ACID 5 MG/ML VIAL ONE (20:12)
[2022-03-25 20:37] LABS: Potassium 4.1 mmol/L (3.5-5.1); Troponin High Sensitivity 18.1 pg/mL (<58.9)
--- NOTE | 2022-03-25 20:37 | RAD REPORT ---
EXAM DESCRIPTION: Bonilla Single View03/25/2022 8:06 pm CLINICAL HISTORY: Chest pain COMPARISON: December 2021 FINDINGS: Lungs are moderately hyperaerated. The lungs appear clear of acute infiltrate. The heart is normal size Pacemaker leads in place IMPRESSION: No acute abnormalities displayed
[2022-03-25 20:38] LABS: SARS-CoV-2 Antigen Rapid Res Negative (Negative)
--- NOTE | 2022-03-25 21:20 | RAD REPORT ---
EXAM DESCRIPTION: Monik Angio03/25/2022 8:56 pm CLINICAL HISTORY: Left-sided weakness COMPARISON: None TECHNIQUE: 50 cc Isovue 370 was administered intravenously. 3D MIP reconstruction performed All CT scans are performed using dose optimization technique as appropriate and may include automated exposure control or mA/KV adjustment according to patient size. FINDINGS: Calcified and noncalcified plaque proximal left internal carotid artery result in an appro ximately 65% stenosis. Moderate stenosis proximal left external carotid artery. Mild calcified plaque left common carotid and carotid bulb Mild calcified plaque distal left internal carotid artery. Mild plaque right carotid bulb. Marked plaque proximal right external carotid artery Mild plaque distal right internal carotid artery. Marked calcified plaque distal vertebral arteries at the level of the tip of the clivus IMPRESSION: Severe stenosis distal vertebral arteries bilaterally Moderate stenosis proximal left internal carotid artery NASCET criteria used. Mild 0-49% stenosis Moderate 50-69% stenosis Severe 70-99% stenosis
--- NOTE | 2022-03-25 21:24 | RAD REPORT ---
EXAM DESCRIPTION: CTHead angio03/25/2022 8:56 pm CLINICAL HISTORY: Left-sided weakness COMPARISON: None TECHNIQUE: CT angiogram of the head was obtained. 3D MIPS reconstruction performed. All CT scans are performed using dose optimization technique as appropriate and may include automated exposure control or mA/KV adjustment according to patient size. FINDINGS: The basilar, internal carotid, anterior cerebral, middle cerebral and posterior cerebral a rteries demonstrate mild plaque. An aneurysm is not seen A significant stenosis is not noted. IMPRESSION: No acute abnormality is displayed
[2022-03-25] MEDS ORDERED: APIXABAN 5 MG TABLET ONE (22:05)
[2022-03-25] MEDS ORDERED: FAMOTIDINE 20 MG/2 ML VIAL IV ONE (22:06)
[2022-03-26 01:44] VITALS: TEMP 98.7; O2SAT 100
[2022-03-26 01:50] VITALS: BP 147/63
--- NOTE | 2022-03-26 15:31 | EKG ---
Test Date: 2022-03-25 Test Time: 22:58:06 Lidar Analyst: PERLA MEASUREMENT RESULTS: Intervals: Rate: 64 TX: 194 QRSD: 74 QT: 394 QTc: 406 [place]: P: 92 TX: 194 QRS: 51 T: 81 INTERPRETIVE STATEMENTS: Electronic atrial pacemaker Nonspecific ST and T wave abnormality Abnormal ECG Compared to ECG 03/25/2022 20:33:55 Possible ischemia no longer present ST (T wave) deviation still present Electronically Signed On 03-26-22 15:30:26 DANCE TEACHER by Will Fernandez
--- NOTE | 2022-03-26 15:32 | EKG ---
Test Date: 2022-03-25 Test Time: 20:33:55 Facilities Director: PERLA MEASUREMENT RESULTS: Intervals: Rate: 61 OK: 150 QRSD: 74 QT: 398 QTc: 400 [place]: P: 92 OK: 150 QRS: 49 T: 132 INTERPRETIVE STATEMENTS: Electronic atrial pacemaker ST & T wave abnormality, consider lateral ischemia Abnormal ECG Compared to ECG 12/24/2021 13:53:13 Ventricular-paced complex(es) or rhythm no longer present Atrial fibrillation no longer present Ventricular premature complex(es) no longer present ST (T wave) deviation still present Possible ischemia still present Electronically Signed On 03-26-22 15:30:52 JUICE STANDARDIZER by Will Fernandez
== END 2022-03-26 00:34 | disposition short-term general hospital (02) ==
LOC: ER 19:26
DX: I63.9 Cerebral infarction, unspecified (principal); I10 Essential (primary) hypertension; R29.708 NIHSS score 8; D64.9 Anemia, unspecified; Z79.01 Long term (current) use of anticoagulants; F03.90 Unspecified dementia, unspecified severity, without behavioral disturbance, psychotic disturbance, mood disturbance, and anxiety; Z20.822 Contact with and (suspected) exposure to COVID-19; Z88.5 Allergy status to narcotic agent
CPT/HCPCS: 96361; 93005 ×2; 85025; 80048; 36415; 85610; 85730; 84484; 70496; 70498; 70450; 71045; 96375; 96374; 99285; 87811; Q9967; J7030; 82947